=== PATIENT | female | born 1960 | race Caucasian/White ===

== ENCOUNTER 2020-07-05 13:55 | Emergency (ER) | payer OTHER, SELFPAY ==
--- NOTE | ~2020-07-05 | CT_ITS ---
EXAMINATION: CTA chest PE protocol DATE: 07/05/2020 15:20 INDICATION: Shortness of breath and hemoptysis TECHNIQUE: Computed tomography angiography (CTA) of the chest was performed with 100 mL Omnipaque-350 intravenous contrast timed to evaluate the pulmonary arteries. Coronal maximum intensity projection 3D-reconstructions were created by the technologist. The dose-length product (DLP) was 305.61 mGy-cm. Automated exposure control and iterative reconstruction technique were employed. COMPARISON: None. FINDINGS: The pulmonary arteries are well-opacified. No pulmonary embolism is identified. There is a 3 mm nodule of the right lower lobe on image 73. Mild dependent atelectasis is present. The lungs are free of focal airspace opacities. Calcified pulmonary nodules and calcified mediastinal lymph nodes are consistent with old granulomatous disease. No pathologically enlarged thoracic lymph nodes are id entified. The heart size is normal. There is an approximately 2.8 x 2.6 cm right paratracheal mass ne ar the thoracic inlet on image 7 contiguous with the thyroid. There is mass effect on and slight narr owing of the trachea at this level. IMPRESSION: 1. No pulmonary embolism or acute cardiopulmonary abnormality. 2. 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 Recommend follow-up with ultrasoun d and direct visualization. Reviewed, dictated and finalized at location A. [facility] IMPRESSION: 1. No pulmonary embolism or acute cardiopulmonary abnormality. 2. 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 Recommend fo llow-up with ultrasound and direct visualization.
--- NOTE | ~2020-07-05 | XR_ITS ---
EXAMINATION: XR chest 2V DATE: 07/05/2020 15:23 INDICATION: Hemoptysis, shortness of breath TECHNIQUE: PA and lateral views of the chest are obtained. COMPARISON: 05/10/2012 FINDINGS: The lungs are free of acute opacities. There is no pleural effusion or pneumothorax. The ca rdiomediastinal silhouette is normal. The visualized bones and soft tissues are unremarkable. There i s minimal mass effect on the upper trachea at the thoracic inlet corresponding to the mass seen on CT from today. IMPRESSION: 1. No acute cardiopulmonary abnormality. 2. Mass effect on the upper trachea corresponding to mass identified on CT from today. Reviewed, dictated and finalized at location A. 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
[2020-07-05 14:13] VITALS: BP 121/72; PULSE 69; RESP 18; TEMP 36.3; O2SAT 97
--- NOTE | 2020-07-05 14:19 | ECG_ITS ---
Measurements Intervals [place] Rate: 67 P: 56 [place]: 126 QRS: 55 QRSD: 82 T: 63 QT: 385 QTc: 407 Interpretive Statements SINUS RHYTHM POSSIBLE LEFT ATRIAL ENLARGEMENT BASELINE WANDER- I, II, III BORDERLINE ECG Electronically Signed On 07-05-2020 15:19:53 [employer] DIPPER by Lavon Amin D.O.
[2020-07-05 14:37] LABS: Basophils Absolute Auto 0.1 K/mm3 (0.0-0.1); Basophils Percent Auto 0.6 % (0.2-1.2); Eosinophils Absolute Auto 0.2 K/mm3 (0-0.3); Eosinophils Percent Auto 1.7 % (0-4.4); Hematocrit 42.1 % (37.0-47.0); Immature Granulocyte Absolute 0.03 K/mm3 (0.00-0.031); Immature Granulocyte Percent A 0.3 % (0-0.5); Lymphocytes Absolute Auto 2.82 K/mm3 (0.9-3.2); Lymphocytes Percent Auto 24.6 % (18.3-44.2); Mean Corpuscular HGB Conc 33.3 g/dl (32-36); Mean Corpuscular Hemoglobin 29.5 pg (26-34); Mean Corpuscular Volume 88.6 fl (80-100); Mean Platelet Volume 9.6 fl (7.4-10.4); Monocytes Absolute Auto 0.8 K/mm3 (0.1-0.6); Monocytes Percent Auto 7.1 % (2.6-8.5); Neutrophils Absolute Auto 7.6 K/mm3 (1.3-6.7); Neutrophils Percent Auto 65.7 % (45.5-73.1); Platelet Count Result 274 k/mm3 (150-375); Red Blood Count 4.75 M/mm3 (4.2-5.4); Red Cell Distribution Width 12.7 % (11.5-14.5); White Blood Count 11.5 K/mm3 (4.5-10.0)
[2020-07-05 14:48] LABS: Anion Gap 8 mmol/L (8-16); Blood Urea Nitrogen 20 mg/dL (7-17); Calcium 8.8 mg/dL (8.4-10.2); Carbon Dioxide 26 mmol/L (22-30); Chloride 102 mmol/L (98-107); Estimated CRCL calculation 53 ml/min; Estimated Glomerular Filt Rate > 60; Glucose 85 mg/dL (65-105); Potassium 4.9 mmol/L (3.4-5.0); Sodium 136 mmol/L (137-145)
[2020-07-05 14:49] VITALS: PULSE 64; RESP 16; O2SAT 95
--- NOTE | 2020-07-05 14:57 | ED.GENADULT ---
HPI - General Adult General Chief complaint: Shortness of Breath/Dyspnea Stated complaint: coughing up blood Time Seen by Provider: 07/05/20 14:49 History of Present Illness HPI narrative: Patient is a 59-year-old female who presents with hemoptysis noting that she has been having congestion rhinorrhea and upper respiratory symptoms for over a week had negative Covid test but continues to have productive cough does have history of tobacco abuse presents to emergency department in no distress Related Data Home Medications Medication Instructions Recorded Confirmed atorvastatin 07/05/20 cetirizine mg 07/05/20 cetirizine [Allergy Relief mg 07/05/20 (cetirizine)] clonazepam 07/05/20 famotidine 07/05/20 fluticasone propionate INTRANASAL 07/05/20 07/05/20 gabapentin 07/05/20 meloxicam 07/05/20 pantoprazole PO 07/05/20 paroxetine HCl mg PO 07/05/20 trazodone 07/05/20 venlafaxine mg PO 07/05/20 venlafaxine mg PO 07/05/20 Allergies Allergy/AdvReac Type Severity Reaction Status Date / Time No Known Allergies Allergy Mild Verified 07/05/20 15:18 Review of Systems Review of Systems: All systems reviewed & are unremarkable except as noted in HPI and below PMFSH Past Medical History Medical History (Updated 07/05/20 @ 16:21 by Hua Jaime PA-C) Anxiety Social History Social History (Updated 07/05/20 @ 15:04 by Hua Jaime PA-C) Smoking status: Current every day smoker Gender identity (if verbalized by the patient): Female Exam Narrative: Exam Narrative: GENERAL: Well-appearing, well-nourished, and in no acute distress. HEAD: Normocephalic, atraumatic. EYES: PERRLA and EOMI. ENT: Nares clear, no rhinorrhea or epistaxis. Mucous membranes moist. CHEST: Clear to auscultation. No respiratory distress. No wheezes rales or rhonchi HEART: Regular rate and rhythm. No murmur heard. EXTREMITIES: Normal range of motion. No edema. SKIN: Warm, dry, no rash. NEURO: No focal deficits. Alert and oriented x3. PSYCH: Normal mood and affect. Course Course Emergency Course: Patient was evaluated in the emergency department for hemoptysis was found to have a pair tracheal mass which she is aware of apparently and has had biopsy in the recent past notes she will continue to follow with primary care for the findings today will be treated for her symptoms ABCs intact hemodynamically stable felt appropriate for outpatient reevaluation Vital Signs Vital signs: Vital Signs Temperature 97.4 F L 07/05/20 14:13 Pulse Rate 69 07/05/20 14:13 Respiratory Rate 18 07/05/20 14:13 Blood Pressure 121/72 07/05/20 14:13 Pulse Oximetry 97 07/05/20 14:13 Temperature 97.4 F L 07/05/20 14:13 Pulse Rate 61 07/05/20 15:05 Respiratory Rate 15 07/05/20 15:05 Blood Pressure 121/72 07/05/20 14:13 Pulse Oximetry 94 07/05/20 15:05 Medical Decision Making MDM Narrative Medical decision making narrative: Patient in the room aware of case findings treatment plan diagnosis agreeing to follow with primary care for CT findings today and reevaluation of her bronchitis hemoptysis symptoms patient agreeing with this plan patient hemodynamically stable no pneumonia or other concerning findings. Vital Signs Vital Signs: Vital Signs Temperature 97.4 F L 07/05/20 14:13 Pulse Rate 69 07/05/20 14:13 Respiratory Rate 18 07/05/20 14:13 Blood Pressure 121/72 07/05/20 14:13 Pulse Oximetry 97 07/05/20 14:13 Temperature 97.4 F L 07/05/20 14:13 Pulse Rate 61 07/05/20 15:05 Respiratory Rate 15 07/05/20 15:05 Blood Pressure 121/72 07/05/20 14:13 Pulse Oximetry 94 07/05/20 15:05 Lab Data Result diagrams: 07/05/20 14:20 07/05/20 14:20 Labs: Lab Results 07/05/20 07/05/20 07/05/20 Range/Units 14:20 14:20 14:49 WBC 11.5 H (4.5-10.0) K/mm3 RBC 4.75 (4.2-5.4) M/mm3 Hgb 14.0 (12.0-15.0) g/dL Hct 42.1 (37.0-47.0
[2020-07-05 15:00] VITALS: PULSE 80
[2020-07-05 15:05] VITALS: PULSE 61; RESP 15; O2SAT 94
--- NOTE | 2020-07-05 15:20 | PC.NURSE ---
patient back from CT. resting on stretcher. on oil heaterman. waiting for all tests to be resulted. patient aware of current treatment plan and expected wait time. side rails up x2 and call light in reach.
[2020-07-05 15:22] LABS: Prothrombin Time 13.3 Seconds (11.1-14.7)
[2020-07-05 15:23] LABS: Partial Thromboplastin Time 26.9 SECONDS (22.3-36.8)
[2020-07-05 15:25] VITALS: PULSE 61; RESP 16; O2SAT 98
[2020-07-05 15:30] VITALS: PULSE 63; RESP 21; O2SAT 95
[2020-07-05] MEDS: methylPREDNISolone SOD SUCC 125 MG VIAL IV PUSH (16:38)
== END 2020-07-05 16:40 | disposition home or self-care (01) ==
PROVIDERS: Emergency Medicine Emergency Medical Services; Emergency Provider Emergency Medicine
DX: R04.2 Hemoptysis (principal); J39.8 Other specified diseases of upper respiratory tract; F41.9 Anxiety disorder, unspecified; R94.31 Abnormal electrocardiogram [ECG] [EKG]
CPT/HCPCS: 36415; 71046; 71275; 80048; 85025; 85610; 85730; 93005; 96374; 99284; J2930; Q9967

== ENCOUNTER 2020-12-11 00:17 | Inpatient (IN) | payer OTHER, SELFPAY ==
[2020-12-11] VITALS (14 sets, daily range): BP systolic 97–170; BP diastolic 63–99; PULSE 59–98; RESP 14–20; TEMP 36–37; O2SAT 95–98
--- NOTE | ~2020-12-11 | US_ITS ---
EXAMINATION: US renal BI DATE: 12/13/2020 08:30 INDICATION: Acute kidney injury. TECHNIQUE: Multiple ultrasound grayscale images of the kidneys were obtained. COMPARISON: None. FINDINGS: The right kidney measures 13.0 x 5.0 x 4.5 cm. The left kidney measures 9.6 x 4.8 x 5.1 cm. The kidne ys demonstrate normal parenchymal echogenicity. There is no hydronephrosis. The bladder is normal. IMPRESSION: 1. Normal kidney sizes. No hydronephrosis. Reviewed, dictated and finalized at location A.
--- NOTE | ~2020-12-11 | CT_ITS ---
EXAMINATION: CT pelvis wo con DATE: 12/11/2020 03:04 INDICATION: Left groin pain. Left hip pain. TECHNIQUE: Computed tomography (CT) of the pelvis was performed without intravenous contrast. Automat ed exposure control and iterative reconstruction technique were employed. The dose-length product was 443.66 mGy-cm. COMPARISON: Pelvis and left hip radiograph 12/11/2020 FINDINGS: There are no dilated loops of bowel. There are no pathologically enlarged lymph nodes. Ther e is no free intraperitoneal fluid. Bone alignment is normal. No fracture. There is advanced left hip osteoarthritis including bone volume loss of the superior acetabulum and superior aspect of the femo ral head. There is mild right hip osteoarthritis. IMPRESSION: 1. Advanced left hip osteoarthritis. Reviewed, dictated and finalized at location A.
--- NOTE | ~2020-12-11 | XR_ITS ---
EXAMINATION: XR chest 1V EXAM DATE: 12/11/2020 01:10 INDICATION: Weakness, syncope, no other hx. TECHNIQUE: Portable AP frontal chest x-ray was obtained. Comparison is made to prior examination from 07/05/2020. FINDINGS: Right upper lobe granuloma, right hilar calcified granulomas. Left basilar granuloma. The l ungs are otherwise clear. There are no pleural effusions. The cardiomediastinal silhouette is withi n normal limits. There is no pneumothorax suspected. The bones and soft tissues are unremarkable. IMPRESSION: No acute cardiopulmonary findings. Reviewed, dictated and finalized at location A.
--- NOTE | ~2020-12-11 | XR_ITS ---
EXAMINATION: XR hip LT 2V w AP pelvis EXAM DATE: 12/11/2020 01:11 INDICATION: Fall, left hip pain. TECHNIQUE: Left hip frontal, 'frog leg' projections for interpretation. Frontal projection pelvis. There is no prior study for comparison. FINDINGS: There is partially collapsed left humeral head with severe loss of the joint space and bony productive changes. Appearance is most consistent with left femoral head chronic avascular necrosis, and subsequent osteoarthritis secondary to this. The right hip and sacroiliac joints are unremarkabl e. There are no acute fractures identified. The soft tissue is unremarkable. IMPRESSION: 1. No acute pelvic, left hip fracture. 2. Severe left hip arthritis likely secondary to chronic advanced AVN. Reviewed, dictated and finalized at location A.
--- NOTE | ~2020-12-11 | NM_ITS ---
EXAMINATION: NM bone scan whole body DATE: 12/12/2020 14:34 INDICATION: Thyroid cancer. Bone pain. TECHNIQUE: 28 mCi Tc-99m HDP was administered intravenously. Delayed whole-body scintigrams were obt ained. COMPARISON: CT pelvis 12/11/2020, chest CT 07/05/20 FINDINGS: There is increased activity at left hip correlating with advanced osteoarthritis by CT. The re is increased activity at the first metatarsophalangeal joints and acromioclavicular joints, likely osteoarthritis. There is increased activity in left posterior cervical spine consistent with osteoar thritis. IMPRESSION: 1. No evidence of metastatic disease. Reviewed, dictated and finalized at location A.
--- NOTE | ~2020-12-11 | CT_ITS ---
EXAMINATION: CT brain wo con, CT cervical spine wo con EXAM DATE: 12/11/2020 00:59 (accession [id number]), 12/11/2020 01:00 (accession [id number]) INDICATION: Syncope, fall, weakness. TECHNIQUE: Spiral CT of the head was performed without contrast. Axial, coronal and sagittal images were reviewed. Spiral CT of the cervical spine was performed without contrast. Axial images were rev iewed. Coronal and sagittal reformatted images were also reviewed. The dose-length product (DLP) fo r this examination was 605.33 (accession [id number]), 358.61 (accession [id number]) mGy-cm. The exposure was tailored according to patient size, and iterative reconstruction (ASIR) was used as additional dose reduction technique. Comparison is made to prior examination from 05/10/2012. FINDINGS: HEAD CT: There is no acute intraparenchymal hemorrhage. No evidence of intraparenchymal brain mass l esion. No evidence of acute infarction. There is no mass effect or midline shift. There is no obstru ctive hydrocephalus suspected. There are no extra-axial collections. There are no acute calvarial f ractures. The orbits are unremarkable. Soft tissue is unremarkable. The visualized sinuses and mas toid air cells are well aerated. CERVICAL CT: There is no evidence of acute cervical fracture. The odontoid process is intact. Pre-d ens space is normal. Prevertebral soft tissue is normal. There are no soft tissue abnormalities alondra ntified. There is no disc space widening or traumatic vertebral body subluxation suspected. There i s moderate to severe disc disease at C4-5, moderate at the cervical levels below. Minimal degenerativ e subluxations. Some advanced lower cervical arthropathy, with the right C4-5 neural foramina most na rrowed on exam. Fused bilateral C5-6 facet joints. Surgical clips along the internal jugular chains b ilaterally and the thyroidectomy bed. A detailed level by level evaluation of spondylosis can be add ed as addendum if requested. IMPRESSION: 1. No acute intracranial findings or cervical fracture. 2. Cervical spondylosis. Reviewed, dictated and finalized at location A. IMPRESSION: 1. No acute intracranial findings or cervical fracture. 2. Cervical spondylosis.
--- NOTE | 2020-12-11 00:31 | ECG_ITS ---
Measurements Intervals [place] Rate: 62 P: 58 [place]: 137 QRS: 47 QRSD: 93 T: 50 QT: 365 QTc: 373 Interpretive Statements SINUS RHYTHM POSSIBLE LEFT ATRIAL ENLARGEMENT MINIMAL Q WAVES- INF/LAT LEADS BASELINE ARTIFACT- I, II, V4-V5 BORDERLINE ECG Electronically Signed On 12-11-2020 6:38:45 CDT by Lavon Amin D.O.
--- NOTE | 2020-12-11 01:03 | ED.FALL ---
HPI - Fall General Chief Complaint: Fall Stated Complaint: left leg pain s/p fall Time Seen by Provider: 12/11/20 00:22 Source: patient and RN notes reviewed Mode of arrival: EMS Limitations: no limitations History of Present Illness HPI Narrative: This is a 60 year old female with history of thyroid CA, chronic hip and back pain who presents via EMS for evaluation of left hip and leg pain. She states she has chronic low back pain that causes pain to her left hip. She reports last week she accidentally fell in between her couch, and this exacerbated his chronic pain. She states she has continued to have worsening pain. She reports the following day she slid off her couch. She also states she has gradually developed weakness and shakiness. Tonight her was cleaning her right ear in which she had a biopsy. She states during the clean she was moving her head uncontrollable. She states she was awake and aware of all her surrounding but she is stating she was passing out. She denies vomiting, fever, chest pain or chills. Related Data Home Medications Medication Instructions Recorded Confirmed atorvastatin 40 mg PO HS 07/05/20 12/11/20 cetirizine 10 mg PO DAILY 07/05/20 12/11/20 famotidine 20 mg PO BID PRN 07/05/20 12/11/20 fluticasone propionate 1 spray INTRANASAL DAILY 07/05/20 12/11/20 gabapentin 300 mg PO TID 07/05/20 12/11/20 pantoprazole 40 mg PO DAILY 07/05/20 12/11/20 paroxetine HCl 40 mg PO DAILY 07/05/20 12/11/20 trazodone 50 mg PO DAILY 07/05/20 12/11/20 acetaminophen 1,000 mg PO Q6H PRN 12/11/20 12/11/20 calcitriol 0.5 mcg PO BID 12/11/20 12/11/20 calcium carbonate-vitamin D3 2 tablet PO TID 12/11/20 12/11/20 [Os-Ciro 500 + D3] mnmqviy-pddfvsyit-tgms 3 tablet PO TID 12/11/20 12/11/20 celecoxib 200 mg PO DAILY 12/11/20 12/11/20 clobetasol 1 applic TOPICAL BID 12/11/20 12/11/20 clonazepam 0.5 mg PO BID PRN 12/11/20 12/11/20 diclofenac sodium [Voltaren] 4 g TOPICAL QID PRN 12/11/20 12/11/20 lgtdwqherar-kjnxm-zqc-vit C-Mn 3 tablet PO DAILY 12/11/20 12/11/20 levothyroxine 112 mcg PO DAILY 12/11/20 12/11/20 menthol [Biofreeze (menthol)] 1 ea TOPICAL QID PRN 12/11/20 12/11/20 methyl salicylate-menthol [BenGay] 1 applic TOPICAL QID PRN 12/11/20 12/11/20 ronbj-3m-jmq-epa-fish oil [[place]-3 3 cap PO DAILY 12/11/20 12/11/20 Fish Oil] vitamin B complex [B Complex] 1 cap PO DAILY 12/11/20 12/11/20 vitamin E 200 unit PO TID 12/11/20 12/11/20 Allergies Allergy/AdvReac Type Severity Reaction Status Date / Time No Known Allergies Allergy Mild Verified 07/05/20 15:18 Review of Systems Review of Systems: All systems reviewed & are unremarkable except as noted in HPI and below PMFSH Past Medical History Medical History Anxiety Thyroid cancer Surgical History Surgical History History of thyroidectomy Family History Family History Mother Diabetes mellitus Social History Social History Years smoked: 46 Smoking status: Current every day smoker Tobacco type: cigarettes Second hand tobacco smoke exposure: Yes Alcohol intake: never Substance use: never Gender identity (if verbalized by the patient): Female Spiritual care concerns: No Exam Const: General: no acute distress and alert Orientation/consciousness: patient oriented x3 HENMT: Head: normocephalic and atraumatic Face and sinus: face symmetric Mouth: Yes Normal oral and palatal mucosa present, Yes lip normal, Yes oropharynx normal and Yes moist mucous membranes Eyes: Pupils: Equal, round and reactive pupils present EOM: EOMs intact bilaterally Resp: Effort & Inspection: normal respiratory effort and no retractions Auscultation: clear to auscultation bilaterally Cardio: Rate: regular rate Rhyth
[2020-12-11] MEDS: ONDANSETRON INJ 4 MG/2 ML VIAL IV PUSH (01:19)
[2020-12-11 01:29] LABS: Basophils Absolute Auto 0.1 K/mm3 (0.0-0.1); Basophils Percent Auto 0.5 % (0.2-1.2); Eosinophils Absolute Auto 0.2 K/mm3 (0-0.3); Eosinophils Percent Auto 1.9 % (0-4.4); Hematocrit 41.2 % (37.0-47.0); Hemoglobin 13.4 g/dL (12.0-15.0); Immature Granulocyte Absolute 0.04 K/mm3 (0.00-0.031); Immature Granulocyte Percent A 0.3 % (0-0.5); Lymphocytes Absolute Auto 2.44 K/mm3 (0.9-3.2); Lymphocytes Percent Auto 19.5 % (18.3-44.2); Mean Corpuscular HGB Conc 32.5 g/dl (32-36); Mean Corpuscular Hemoglobin 29.1 pg (26-34); Mean Corpuscular Volume 89.6 fl (80-100); Mean Platelet Volume 10.5 fl (7.4-10.4); Monocytes Absolute Auto 1.4 K/mm3 (0.1-0.6); Monocytes Percent Auto 11.1 % (2.6-8.5); Neutrophils Absolute Auto 8.3 K/mm3 (1.3-6.7); Neutrophils Percent Auto 66.7 % (45.5-73.1); Platelet Count Result 349 k/mm3 (150-375); Red Cell Distribution Width 12.3 % (11.5-14.5); White Blood Count 12.5 K/mm3 (4.5-10.0)
[2020-12-11 01:46] LABS: INR 0.9; Prothrombin Time 12.9 Seconds (11.1-14.7)
[2020-12-11 01:47] LABS: Partial Thromboplastin Time 21.8 SECONDS (22.3-36.8)
[2020-12-11 01:56] LABS: Add Urine Microscopic? YES; Appearance Urine Cloudy (Clear); Bacteria Urine Trace /hpf; Bilirubin Urine Negative (Negative); Blood Urine Negative (Negative); Color Urine Straw (Yellow); Glucose Urine UA Negative (Negative); Ketones Urine Negative (Negative); Leukocyte Esterase Ur 1+ LEU/UL (Negative); Nitrate Urine Negative (Negative); Protein Urine 1+ mg/dL (Negative); RBC Urine 0-2 /hpf (0-2); Specific Grav Ur 1.009 (1.001-1.035); Squamous Epithelial Cell Urine Few /hpf (Few); Urobilinogen Urine Negative mg/dL (<2.0)
[2020-12-11 02:11] LABS: D Dimer < 0.22 ug/mL (<0.48)
[2020-12-11 02:28] LABS: Alanine Aminotransferase 17 U/L (4-35); Albumin Level 4.3 g/dL (3.5-5.1); Alkaline Phosphatase 74 U/L (38-126); Anion Gap 7 mmol/L (8-16); Aspartate Amino Transferase 35 U/L (14-36); Bilirubin,Total 0.3 mg/dL (0.2-1.3); Blood Urea Nitrogen 52 mg/dL (7-17); CRP 1.1 mg/dL (<1.0); Carbon Dioxide 34 mmol/L (22-30); Chloride 96 mmol/L (98-107); Estimated CRCL calculation 14 ml/min; Estimated Glomerular Filt Rate 13; Glucose 105 mg/dL (65-105); Potassium 4.1 mmol/L (3.4-5.0); Sodium 137 mmol/L (137-145); Troponin I 0.077 ng/mL (0.000-0.034)
[2020-12-11 02:29] LABS: Calcium 17.1 mg/dL (8.4-10.2)
[2020-12-11] MEDS: SODIUM CHLORIDE 0.9% IV 1,000 ML 999 ML IV CONT ×2 (02:53→04:30)
--- NOTE | 2020-12-11 05:22 | PC.NURSE ---
This patient, Brisa Hogan, was admitted to IMU Room 205-01. Patient/family oriented to hospital policies and general routines including ID bracelet, bed and alarms, visiting hours, pain management, procedures, bathroom and other care routines, personal items, smoking policy, room service/diet, and visiting hours. Information on how to activate the Rapid Response Team has been discussed. Patient/Family are encouraged to report perceived risks to care and to ask questions if they do not understand what they are told or what they should do.
[2020-12-11] MEDS: SODIUM CHLORIDE 0.9% IV 1,000 ML 200 ML IV CONT ×2 (10:16→16:07)
--- NOTE | 2020-12-11 12:47 | PDONCCN ---
[facility] - Date of Consult Date/Time: 12/11/20 12:47 Requesting Physician: Tank Gupta MD Primary Care Provider: UNKNOWN,DOCTOR - Consult Narrative Reason for consult: History of thyroid cancer and hypercalcemia Narrative: Brisa Hogan is a 60 year old female with recent diagnosis of thyroid cancer status post thyroidectomy done in August of 2020. According the patient she had thyroid biopsy done in April of 2028 came back negative. She had been seen by oncologist at [facility]. She was supposed to have radioactive iodine ablation done. She now came into the hospital with complain of chronic hip and back pain worsening left hip and leg pain. She was taking calcium 2500 mg 3 times a day with vitamin-D 500 mg daily. Her calcium level was found to be quite elevated at 17.1 with creatinine of 3.6. Pelvic CT was performed due to the hip pain that showed advanced left hip osteoarthritis. Cervical spine CT also showed cervical spondylosis without any fracture. Is still complaining of bilateral hip pain. Her mental status has been slowly improving. Denies any other complaints. Review of Systems - Review of Systems All systems reviewed & are unremarkable except as noted in [facility] and [facility] Medical History: Medical History (Last Updated 12/11/20 @ 07:12 by Daniela Kenyon MD) Anxiety Thyroid cancer Surgical History: Surgical History (Last Updated 12/11/20 @ 07:19 by Daniela Kenyon MD) History of thyroidectomy Family History: Family History (Last Reviewed 12/11/20 @ 05:37 by Jennifer Grider RN) Mother Diabetes mellitus - Social History Social History: Social History (Last Updated 07/05/20 @ 15:04 by Hua Jaime PA-C) Gender Identity: Gender identity (if verbalized by the patient): Female Alcohol Use: Alcohol intake: never Substance Use: Substance use: never Others: Spiritual care concerns: No Smoking Status: Smoking status: Current every day smoker Tobacco type: cigarettes Second hand tobacco smoke exposure: Yes Smoking Pack-years: Smoking cigarettes per day: 5 Years smoked: 46 Smoking pack-years: 11.50 Meds Home Medications Medication Instructions Recorded Confirmed Type atorvastatin 40 mg PO HS 07/05/20 12/11/20 History cetirizine 10 mg PO DAILY 07/05/20 12/11/20 History famotidine 20 mg PO BID PRN 07/05/20 12/11/20 History fluticasone propionate 1 spray INTRANASAL DAILY 07/05/20 12/11/20 History gabapentin 300 mg PO TID 07/05/20 12/11/20 History pantoprazole 40 mg PO DAILY 07/05/20 12/11/20 History paroxetine HCl 40 mg PO DAILY 07/05/20 12/11/20 History trazodone 50 mg PO DAILY 07/05/20 12/11/20 History acetaminophen 1,000 mg PO Q6H PRN 12/11/20 12/11/20 History calcitriol 0.5 mcg PO BID 12/11/20 12/11/20 History calcium carbonate-vitamin D3 2 tablet PO TID 12/11/20 12/11/20 History [Os-Ciro 500 + D3] gnrblbc-khsdteqeg-onzx 3 tablet PO TID 12/11/20 12/11/20 History celecoxib 200 mg PO DAILY 12/11/20 12/11/20 History clobetasol 1 applic TOPICAL BID 12/11/20 12/11/20 History clonazepam 0.5 mg PO BID PRN 12/11/20 12/11/20 History diclofenac sodium [Voltaren] 4 g TOPICAL QID PRN 12/11/20 12/11/20 History jhibpkebkav-dpwjg-nyz-vit C-Mn 3 tablet PO DAILY 12/11/20 12/11/20 History levothyroxine 112 mcg PO DAILY 12/11/20 12/11/20 History menthol [Biofreeze (menthol)] 1 ea TOPICAL QID PRN 12/11/20 12/11/20 History methyl salicylate-menthol [BenGay] 1 applic TOPICAL QID PRN 12/11/20 12/11/20 History ycqmy-9v-hws-epa-fish oil [[place]-3 3 cap PO DAILY 12/11/20 12/11/20 History Fish Oil] vitamin B complex [B Complex] 1 cap PO DAILY 12/11/20 12/11/20 History vitamin E 200 unit PO TID 12/11/20 12/11/20 History Allergies Allergy/AdvReac Type Severity Reaction Status Date / Time No Known Allergies Allergy Mild Verified 07/05/20 15:18 Results - Labs CBC & Chem 7: 12/11/20 01:23 06/
[2020-12-11] MEDS: ZOLEDRONIC ACID 4 MG/100 ML 100 ML 400 MG IVPB (13:32)
[2020-12-11] MEDS: GABAPENTIN 300 MG CAPSULE PO ×2 (13:32→18:44)
[2020-12-11] MEDS: CALCITONIN SALMON INJ 400 UNITS/2 ML VIAL 250 UNITS SUB-Q ×2 (13:32→20:33)
[2020-12-11 14:12] LABS: Thyroid Stimulating Hormone 0.628 uIU/mL (0.465-4.680)
--- NOTE | 2020-12-11 14:35 | ADMGEN ---
This patient, Brisa Hogan, was admitted to [facility] Surg Room 309-01. Patient/family oriented to hospital policies and general routines including ID bracelet, bed and alarms, visiting hours, pain management, procedures, bathroom and other care routines, personal items, smoking policy, room service/diet, and visiting hours. Information on how to activate the Rapid Response Team has been discussed. Patient/Family are encouraged to report perceived risks to care and to ask questions if they do not understand what they are told or what they should do.
--- NOTE | 2020-12-11 14:36 | PC.NURSE ---
This patient, Brisa Hogan, was transferred to [309 ] on 12/11/20 at 1430. Personal belongings sent with patient. Report given to [JOSY Julien @ 1768 ]. Appropriate documentation sent with patient.
[2020-12-11] MEDS: HYDROcodone/acetaminophen (*CRX) 5-325 MG TABLET 1 TAB PO (14:53)
[2020-12-11] MEDS: clonazePAM (*CRX) 0.5 MG TABLET PO (15:03)
--- NOTE | 2020-12-11 16:41 | PM.CNNEP ---
Assessment and Plan Assessment and plan (1) Acute kidney injury: Code(s): N17.9 - Acute kidney failure, unspecified Status: Acute Assessment and Plan: possibly due to hypercalcemia (and associated vasoconstriction) and NSAID use(?) continue aggressive IVF resuscitaton check urine electrolytes and urine eosinophils follow UOP and repeat labs (2) Hypercalcemia: Code(s): E83.52 - Hypercalcemia Status: Acute Assessment and Plan: presumably from excessive calcium supplementation (calcium carbonate, calcitriol...etc) continue aggressive IVF resuscitation start calcitonin x 4 doses given #1, I would have preferred to avoid use of zometa check SPEP, UPEP, PTH, PTHrp, and GUSTABO level follow repeat calcium levels Will continue to follow. History of Present Illness Reason for Consult Consult date: 12/11/20 Reason for consult: acute renal failure and Other (hypercalcemia) Chief Complaint Chief complaint: Acute Kidney Injury History of Present Illness Narrative: The patient is a 60-year-old female with a past medical history is out by feroz who presented to [facility] Emergency room due to chronic hip pain. The patient states that she has been having chronic hip and back pain for extensive period of time but appears to have acutely worsened on the day of admission. Due the severity of the pain, she is at apparently had issues with difficulty ambulating as well as reported falls. Eventually, the pain became so intolerable that she presented to the emergency room for further evaluation and therapy. Workup and evaluation emergency room demonstrated patient be hemodynamically stable but routine blood tests were significant for severe hypercalcemia with a value of 17.1 in associated with an elevated BUN and creatinine consistent with acute kidney injury/acute renal failure. Imaging studies demonstrated advanced degenerative joint disease/ Izaiah osteoarthritis particularly in the left hip as in well as in her cervical spine. Upon further questioning, the patient reports significant calcium supplementation in the hopes that this would improve her degenerative joint disease as well as several nonsteroidal anti-inflammatory medications to help with the pain as well. Upon discovery of the CARYL as well as her hypercalcemia, she was aggressively hydrated with IV fluids and subsequent admitted the hospital for further evaluation and therapy. Renal consultation was requested due to her acute kidney injury as well as her hypercalcemia. Since her admission, she has been receiving aggressive IV fluid resuscitation and she reports increased urine output with this intervention. She is in seen in consultation by Oncology as well and has received a dose of IV Zometa in attempt to help correct her hypercalcemia. Aside from the a for mentioned hip pain, she otherwise does not appear to be in any acute distress. As far she is aware, she has never been told that she had any issues or problems with renal dysfunction or kidney disease prior to this hospitalization. Aside from the increased urination from the IV fluids, she has no other acute issues or complaints voiced. [facility] Past Medical History Medical History Anxiety Thyroid cancer Surgical History Surgical History History of thyroidectomy Family History Family History Mother Diabetes mellitus Social History Social History Years smoked: 46 Smoking status: Current every day smoker Tobacco type: cigarettes Second hand tobacco smoke exposure: Yes Alcohol intake: never Substance use: never Gender identity (if verbalized by the patient): Female Spiritual care concerns: No Meds Home Medications and Allergies
--- NOTE | 2020-12-11 18:18 | PM.IMHP ---
H&P: HPI History of Present Illness Date/Time: 12/11/20 18:18 Chief Complaint: Fall Narrative: Pt admitted with a fall. Pt has had thyroidectomy in august and has been on levothyroxine since. Pt has bone on bone OA in her hip and is awaiting replacement. PT has been taking calcium supplements and pain medications for OA of her hip and ? osteoporosis. Unfortunately her calcium went high and pt feel weak and passed out and was brought to ED for evaluation. Pt calcium was found to be 17 and creatine was 3.6. Pt complains of pain in her hip but is otherwise awake and alert. Pt started on iv fluids calcitonin and will get zometa. Nephrology and oncology consulted. Review of Systems Review of Systems: All systems reviewed & are unremarkable except as noted in HPI and below PMFSH Past Medical History Medical History Anxiety Thyroid cancer Surgical History Surgical History History of thyroidectomy Family History Family History Mother Diabetes mellitus Social History Social History Years smoked: 46 Smoking status: Current every day smoker Tobacco type: cigarettes Second hand tobacco smoke exposure: Yes Alcohol intake: never Substance use: never Gender identity (if verbalized by the patient): Female Spiritual care concerns: No Meds Home Medications and Allergies Home Medications Medication Instructions Recorded Confirmed Type atorvastatin 40 mg PO HS 07/05/20 12/11/20 History cetirizine 10 mg PO DAILY 07/05/20 12/11/20 History famotidine 20 mg PO BID PRN 07/05/20 12/11/20 History fluticasone propionate 1 spray INTRANASAL DAILY 07/05/20 12/11/20 History gabapentin 300 mg PO TID 07/05/20 12/11/20 History pantoprazole 40 mg PO DAILY 07/05/20 12/11/20 History paroxetine HCl 40 mg PO DAILY 07/05/20 12/11/20 History trazodone 50 mg PO DAILY 07/05/20 12/11/20 History acetaminophen 1,000 mg PO Q6H PRN 12/11/20 12/11/20 History calcitriol 0.5 mcg PO BID 12/11/20 12/11/20 History calcium carbonate-vitamin D3 2 tablet PO TID 12/11/20 12/11/20 History [Os-Ciro 500 + D3] tbfxlai-kgwsnfjct-prfe 3 tablet PO TID 12/11/20 12/11/20 History celecoxib 200 mg PO DAILY 12/11/20 12/11/20 History clobetasol 1 applic TOPICAL BID 12/11/20 12/11/20 History clonazepam 0.5 mg PO BID PRN 12/11/20 12/11/20 History diclofenac sodium [Voltaren] 4 g TOPICAL QID PRN 12/11/20 12/11/20 History vfwsnvmjouw-jfqis-bsg-vit C-Mn 3 tablet PO DAILY 12/11/20 12/11/20 History levothyroxine 112 mcg PO DAILY 12/11/20 12/11/20 History menthol [Biofreeze (menthol)] 1 ea TOPICAL QID PRN 12/11/20 12/11/20 History methyl salicylate-menthol [BenGay] 1 applic TOPICAL QID PRN 12/11/20 12/11/20 History twrsc-4l-syl-epa-fish oil [[place]-3 3 cap PO DAILY 12/11/20 12/11/20 History Fish Oil] vitamin B complex [B Complex] 1 cap PO DAILY 12/11/20 12/11/20 History vitamin E 200 unit PO TID 12/11/20 12/11/20 History Allergies Allergy/AdvReac Type Severity Reaction Status Date / Time No Known Allergies Allergy Mild Verified 07/05/20 15:18 Vital Signs Vital Signs - 24 hr 12/11/20 00:20 12/11/20 02:02 12/11/20 03:08 Temperature 36.9 C Pulse Rate 69 59 L 70 Respiratory Rate 18 18 14 Blood Pressure 153/84 H 148/73 H 170/84 H Pulse Oximetry 98 95 97 12/11/20 03:44 12/11/20 04:30 12/11/20 05:00 Temperature 36.6 C Pulse Rate 72 66 98 Respiratory Rate 18 18 20 Blood Pressure 152/79 H 137/75 149/88 H Pulse Oximetry 95 96 97 12/11/20 06:00 12/11/20 08:00 12/11/20 10:00 Temperature 36.7 C Pulse Rate 70 67 76 Respiratory Rate 16 Blood Pressure 122/98 H Pulse Oximetry 96 12/11/20 12:00 12/11/20 15:00 Temperature 36.8 C 36.6 C Pulse Rate 74 77 Respiratory Rate 18 20 Blood Pressure 158/99 H Pulse Oxime
[2020-12-11] MEDS: FAMOTIDINE 20 MG TABLET PO (20:31)
[2020-12-11] MEDS: ENOXAPARIN 30 MG/0.3 ML SYRINGE SUB-Q (20:32)
[2020-12-12] VITALS (7 sets, daily range): BP systolic 130–146; BP diastolic 61–82; PULSE 61–79; RESP 16–20; TEMP 36.1–36.9; O2SAT 96–97
[2020-12-12] MEDS: SODIUM CHLORIDE 0.9% IV 1,000 ML 200 ML IV CONT ×4 (02:06→19:03)
[2020-12-12] MEDS: HYDROcodone/acetaminophen (*CRX) 5-325 MG TABLET 1 TAB PO ×3 (02:19→16:30)
[2020-12-12] MEDS: clonazePAM (*CRX) 0.5 MG TABLET PO (02:20)
[2020-12-12] MEDS: LEVOTHYROXINE SODIUM 112 MCG TABLET PO (05:13)
[2020-12-12 06:17] LABS: Alanine Aminotransferase 12 U/L (4-35); Albumin Level 3.5 g/dL (3.5-5.1); Alkaline Phosphatase 53 U/L (38-126); Anion Gap 7 mmol/L (8-16); Aspartate Amino Transferase 23 U/L (14-36); Bilirubin,Total 0.2 mg/dL (0.2-1.3); Blood Urea Nitrogen 40 mg/dL (7-17); Calcium 11.3 mg/dL (8.4-10.2); Carbon Dioxide 24 mmol/L (22-30); Chloride 111 mmol/L (98-107); Estimated CRCL calculation 16 ml/min; Estimated Glomerular Filt Rate 16; Glucose 88 mg/dL (65-105); Potassium 3.5 mmol/L (3.4-5.0); Sodium 142 mmol/L (137-145)
[2020-12-12 08:12] LABS: Basophils Absolute Auto 0.1 K/mm3 (0.0-0.1); Basophils Percent Auto 0.6 % (0.2-1.2); Eosinophils Absolute Auto 0.2 K/mm3 (0-0.3); Eosinophils Percent Auto 2.2 % (0-4.4); Hematocrit 32.9 % (37.0-47.0); Hemoglobin 10.5 g/dL (12.0-15.0); Immature Granulocyte Absolute 0.03 K/mm3 (0.00-0.031); Immature Granulocyte Percent A 0.3 % (0-0.5); Lymphocytes Absolute Auto 2.13 K/mm3 (0.9-3.2); Lymphocytes Percent Auto 22.1 % (18.3-44.2); Mean Corpuscular HGB Conc 31.9 g/dl (32-36); Mean Corpuscular Hemoglobin 28.6 pg (26-34); Mean Corpuscular Volume 89.6 fl (80-100); Mean Platelet Volume 10.1 fl (7.4-10.4); Monocytes Absolute Auto 0.9 K/mm3 (0.1-0.6); Monocytes Percent Auto 9.4 % (2.6-8.5); Neutrophils Absolute Auto 6.3 K/mm3 (1.3-6.7); Neutrophils Percent Auto 65.4 % (45.5-73.1); Platelet Count Result 265 k/mm3 (150-375); Red Blood Count 3.67 M/mm3 (4.2-5.4); Red Cell Distribution Width 12.3 % (11.5-14.5); White Blood Count 9.6 K/mm3 (4.5-10.0)
[2020-12-12] MEDS: GABAPENTIN 300 MG CAPSULE PO ×3 (08:26→16:31)
[2020-12-12] MEDS: PARoxetine 20 MG TABLET 40 MG PO (08:27)
[2020-12-12] MEDS: CALCITONIN SALMON INJ 400 UNITS/2 ML VIAL 250 UNITS SUB-Q (08:27)
[2020-12-12] MEDS: PANTOPRAZOLE 40 MG TABLET PO (08:27)
--- NOTE | 2020-12-12 14:46 | PM.PNNEP ---
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 Subjective Date/time seen: 12/12/20 14:46 Still with a significant amount of pain related to her extensive degenerative joint disease/osteoarthritis; making good urine output and calcium level has improved with current interventions; no events overnight or earlier this AM. Objective Data Vital Signs Vital Signs: Vital Signs Temp Pulse Resp BP Pulse Ox 12/12/20 16:00 36.9 C 71 20 140/65 96 12/12/20 12:00 68 12/12/20 08:00 36.6 C 61 20 146/61 H 97 12/12/20 04:00 69 12/12/20 00:00 67 12/11/20 23:59 37.0 C 74 18 97/63 L 98 12/11/20 20:00 71 Intake/Output Intake/Output: Intake & Output 12/09/20 12/10/20 12/11/20 12/12/20 23:59 23:59 23:59 23:59 Intake Total 5840 4320 Output Total 2550 1350 Balance 3290 2970 Meds/Results Medications: Active Medications Generic Name Dose Route Start Last Admin Trade Name Freq PRN Reason Stop Dose Admin Acetaminophen 1,000 mg 12/11/20 14:39 Acetaminophen 500 Mg Tablet PO Q6H PRN Pain Rated 5 or Less Hydrocodone Bitart/Acetaminophen 1 tab 12/11/20 14:39 12/12/20 16:30 Hydrocodone/Acetaminophen (*Crx) 5-325 Mg Tablet PO 1 tab Q6H PRN Administration Pain Rated 6 or Greater Clonazepam 0.5 mg 12/11/20 12:27 12/12/20 02:20 Clonazepam (*Crx) 0.5 Mg Tablet PO 0.5 mg BID PRN Administration Anxiety Enoxaparin Sodium 30 mg 12/11/20 21:00 12/11/20 20:32 Enoxaparin 30 Mg/0.3 Ml Syringe SUB-Q 30 mg Q24H RACQUEL Administration Famotidine 20 mg 12/11/20 12:27 12/11/20 20:31 Famotidine 20 Mg Tablet PO 20 mg BID PRN Administration Acid Reflux Gabapentin 300 mg 12/11/20 13:00 12/12/20 16:31 Gabapentin 300 Mg Capsule PO 300 mg TID RACQUEL Administration Sodium Chloride 1,000 mls @ 200 mls/hr 12/11/20 04:15 12/12/20 19:03 Normal Saline Iv IV CONT 200 mls/hr .Q5H RACQUEL Administration Levothyroxine Sodium 112 mcg 12/12/20 06:30 12/12/20 05:13 Levothyroxine Sodium 112 Mcg Tablet PO 112 mcg DAILY@0630 RACQUEL Administration Ondansetron HCl 4 mg 12/11/20 04:12 Ondansetron Inj 4 Mg/2 Ml Vial IV PUSH Q4H PRN Nausea Pantoprazole Sodium 40 mg 12/12/20 09:00 12/12/20 08:27 Pantoprazole 40 Mg Tablet PO 40 mg DAILY RACQUEL Administration Paroxetine HCl 40 mg 12/12/20 09:00 12/12/20 08:27 Paroxetine 20 Mg Tablet PO 40 mg DAILY RACQUEL Administration Trazodone HCl 50 mg 12/12/20 21:00 Trazodone Hcl 50 Mg Tablet PO HS [facility] Radiology Results: ITS Impressions Chest X-Ray 12/11/20 06:46 IMPRESSION: No acute cardiopulmonary findings. Hip/Pelvis X-Ray 12/11/20 06:46 IMPRESSION: 1. No acute pelvic, left hip fracture. 2. Severe left hip arthritis likely secondary to chronic advanced AVN. Cervical Spine CT 12/11/20 07:28 IMPRESSION: 1. No acute intracranial findings or cervical fracture. 2. Cervical spondylosis. Head CT 12/11/20 07:28
--- NOTE | 2020-12-12 15:31 | PM.IMPN ---
Progress Note: A&P Assessment and Plan (1) Acute kidney injury: Code(s): N17.9 - Acute kidney failure, unspecified Status: Acute Assessment and Plan: Pt seen by nephrology, continue to monitor BMP. Continue to hydrate (2) Hypercalcemia: Code(s): E83.52 - Hypercalcemia Status: Acute Assessment and Plan: Continue with calcitonin and continue to monitor calcium levels Stop calcium supplements continue to hydrate seen by oncology (3) Cancer of thyroid: Code(s): C73 - Malignant neoplasm of thyroid gland Status: Acute Assessment and Plan: thyroid cancer status post thyroidectomy done in August of 2020. According the patient she had thyroid biopsy done in April of 2028 came back negative, Pt taking levothyroixine. pt to have nm scan (4) Left hip pain: Code(s): M25.552 - Pain in left hip Status: Acute Assessment and Plan: PT had xray of hips and pelvic looks like advanced OA of left hip continue pain medications in hospital (5) Chronic pain: Code(s): G89.29 - Other chronic pain Status: Acute Assessment and Plan: PT had CT chest, CT head and CT c spine as she pased out on admission. Subjective Date/time seen: 12/12/20 15:31 Interval history: Unfortunately her calcium went high and pt feel weak and passed out and was brought to ED for evaluation calcium is 11 today much improved Review of Systems Review of Systems: All systems reviewed & are unremarkable except as noted in HPI and below Exam Const: General: tired appearing Other: lying on her right side HENMT: Head: normocephalic Eyes: General: appearance normal, both eyes and all related structures Pupils: Equal, round and reactive pupils present Neck: Neck: supple Chest: Chest palpation & inspection: normal inspection of the chest Resp: Effort & Inspection: normal respiratory effort Auscultation: clear to auscultation bilaterally Cardio: Jugular venous distension: no JVD Rhythm: regular rhythm Heart sounds: S1 normal heart sound present and S2 normal heart sound present GI: Inspection: normal to inspection Auscultation: normal bowel sounds Back/Spine/Pelvis: Back: other (TTP over hips ) Skin: General skin exam: normal color and dry skin Neuro: Cranial nerves: Yes CN's II-XII intact bilaterally and Yes Equal, round and reactive pupils present Cognition (Neuro): normal cognition Speech: normal speech Motor exam (neuro): 5/5 motor strength present throughout Extrem: General: normal to inspection Psych: Appearance: grossly normal Mental Status: mental status grossly normal Objective Data Vital Signs Vital Signs: Vital Signs - 24 hr 12/11/20 16:00 12/11/20 20:00 12/11/20 23:59 Temperature 36.0 C L 37.0 C Pulse Rate 77 71 74 Respiratory Rate 18 18 Blood Pressure 115/75 97/63 L Pulse Oximetry 97 98 12/12/20 00:00 12/12/20 04:00 12/12/20 08:00 Temperature 36.6 C Pulse Rate 67 69 61 Respiratory Rate 20 Blood Pressure 146/61 H Pulse Oximetry 97 12/12/20 12:00 Temperature Pulse Rate 68 Respiratory Rate Blood Pressure Pulse Oximetry Intake/Output Intake/Output: Intake & Output 12/09/20 12/10/20 12/11/20 12/12/20 23:59 23:59 23:59 23:59 Intake Total 5840 3000 Output Total 2550 1350 Balance 3290 1650 Meds/Results Medications: Active Medications Generic Name Dose Route Start Last Admin Trade Name Freq PRN Reason Stop Dose Admin Acetaminophen 1,000 mg 12/11/20 14:39 Acetaminophen 500 Mg Tablet PO Q6H PRN Pain Rated 5 or Less Hydrocodone Bitart/Acetaminophen 1 tab 12/11/20 14:39 12/12/20 08:26 Hydrocodone/Acetaminophen (*Crx) 5-325 Mg Tablet PO 1 tab Q6H PRN Administration Pain Rated 6 or Greater Calcitonin [place] 250 units 12/11/20 11:50 12/12/20 08:27 Calcitonin [place] Inj 400 Units/2 Ml Vial SUB-Q 12/12/20 21:01 250 units Q12HR ON LICENSE OF [facility] Administra
[2020-12-12] MEDS: traZODone HCL 50 MG TABLET PO (21:44)
[2020-12-12] MEDS: ENOXAPARIN 30 MG/0.3 ML SYRINGE SUB-Q (21:44)
[2020-12-12 22:20] LABS: Creatinine Urine 38.5 mg/dL; Total Protein Urine Random 36 mg/dL; Ur Ttl Prot Creatinine Ratio 0.94 mg/mg (0-0.20)
[2020-12-12 22:45] LABS: Sodium Urine Random 77 meq/L
[2020-12-13] VITALS (10 sets, daily range): BP systolic 120–165; BP diastolic 54–68; PULSE 60–90; RESP 16–18; TEMP 36.2–37.3; O2SAT 94–96
[2020-12-13] MEDS: SODIUM CHLORIDE 0.9% IV 1,000 ML 200 ML IV CONT ×2 (00:27→05:00)
[2020-12-13] MEDS: ONDANSETRON INJ 4 MG/2 ML VIAL IV PUSH ×3 (01:17→18:27)
[2020-12-13] MEDS: LEVOTHYROXINE SODIUM 112 MCG TABLET PO (04:57)
[2020-12-13] MEDS: HYDROcodone/acetaminophen (*CRX) 5-325 MG TABLET 1 TAB PO (05:00)
[2020-12-13 07:12] LABS: Albumin Level 3.4 g/dL (3.5-5.1); Anion Gap 10 mmol/L (8-16); Blood Urea Nitrogen 28 mg/dL (7-17); Carbon Dioxide 19 mmol/L (22-30); Chloride 113 mmol/L (98-107); Estimated CRCL calculation 21 ml/min; Estimated Glomerular Filt Rate 20; Glucose 84 mg/dL (65-105); Phosphorus 2.7 mg/dL (2.5-4.5); Potassium 2.9 mmol/L (3.4-5.0); Sodium 142 mmol/L (137-145)
[2020-12-13 07:14] LABS: Parathyroid Intact < 3.4 pg/mL (7.5-53.5)
[2020-12-13 08:23] LABS: Vitamin D 25 Hydroxy 29.6 ng/mL
[2020-12-13] MEDS: GABAPENTIN 300 MG CAPSULE PO ×3 (08:52→17:56)
[2020-12-13] MEDS: PANTOPRAZOLE 40 MG TABLET PO (08:52)
[2020-12-13] MEDS: PARoxetine 20 MG TABLET 40 MG PO (08:52)
--- NOTE | 2020-12-13 09:31 | P.PNNP_ITS ---
Progress Note: A&P Assessment and Plan (1) Acute kidney injury: Code(s): N17.9 - Acute kidney failure, unspecified Status: Acute Assessment and Plan: * Acute kidney injury * Urine electrolytes are non pre renal. * Urine eosinophils are pending * renal ultrasound is normal * Most likely this is related to NSAID use and hypercalcemia. * Calcium is better. * She is off the NSAIDs. * She was getting IV fluids but now looks like she is a little volume overloaded. Will stop IV fluids and give her some diuretics. * Creatinine is better (2) Hypercalcemia: Code(s): E83.52 - Hypercalcemia Status: Acute Assessment and Plan: * presumably from excessive calcium supplementation (calcium carbonate, calcitriol...etc) - milk alkali syndrome * calcitonin x 4 doses * given #1, I would have preferred to avoid use of zometa * follow-up on SPEP, UPEP, PTH, PTHrp, and GUSTABO level * Bone scan shows no evidence of metastatic disease. * Calcium Level is okay today. Stop IV fluids. Give Lasix. Subjective Date/time seen: 12/13/20 09:31 Interval history: Patient feels okay today. She was a little short of breath this morning. She made a little urine yesterday. Exam Narrative: Exam Narrative: GENERAL APPEARANCE: well developed well nourished female in no acute distress CARDIOVASCULAR: RRR, normal S1 and S2, no rub RESPIRATORY: Bibasilar crackles ABDOMEN: soft, nontender, nondistended, positive bowel sounds present EXTREMITIES: Trace edema edema NEUROLOGICAL: alert and oriented x 3; CN II - XII intact bilaterally; no focal deficits noted Objective Data Vital Signs Vital Signs: Vital Signs - 24 hr 12/12/20 12:00 12/12/20 16:00 12/12/20 16:29 Temperature 36.9 C Pulse Rate 68 71 73 Respiratory Rate 20 Blood Pressure 140/65 Pulse Oximetry 96 12/12/20 22:00 12/13/20 00:00 12/13/20 04:00 Temperature 36.1 C L Pulse Rate 79 75 90 Respiratory Rate 16 Blood Pressure 130/82 Pulse Oximetry 97 12/13/20 06:00 Temperature 36.2 C L Pulse Rate 80 Respiratory Rate 18 Blood Pressure 165/68 H Pulse Oximetry 94 Intake/Output Intake/Output: Intake & Output 0612/11/20 12/12/20 12/13/20 23:59 23:59 23:59 23:59 Intake Total 6363 6342 8750 Output Total 1306 1350 550 Balance 3290 7026 1900 Meds/Results Medications: Active Medications Generic Name Dose Route Start Last Admin Trade Name Freq PRN Reason Stop Dose Admin Acetaminophen 1,000 mg 12/11/20 14:39 Acetaminophen 500 Mg Tablet PO Q6H PRN Pain Rated 5 or Less Hydrocodone Bitart/Acetaminophen 1 tab 12/11/20 14:39 12/13/20 05:00 Hydrocodone/Acetaminophen (*Crx) 5-325 Mg Tablet PO 1 tab Q6H PRN Administration Pain Rated 6 or Greater Clonazepam 0.5 mg 12/11/20 12:27 12/12/20 02:20 Clonazepam (*Crx) 0.5 Mg Tablet PO 0.5 mg BID PRN Administration Anxiety Enoxaparin Sodium 30 mg 12/11/20 21:00 12/12/20 21:44 Enoxaparin 30 Mg/0.3 Ml Syringe SUB-Q 30 mg Q24H RACQUEL Administration Famotidine 20 mg 12/11/20 12:27 12/11/20 20:3
--- NOTE | 2020-12-13 09:31 | PM.PNNEP ---
Progress Note: A&P Assessment and Plan (1) Acute kidney injury: Code(s): N17.9 - Acute kidney failure, unspecified Status: Acute Assessment and Plan: Acute kidney injury Urine electrolytes are non pre renal. Urine eosinophils are pending renal ultrasound is normal Most likely this is related to NSAID use and hypercalcemia. Calcium is better. She is off the NSAIDs. She was getting IV fluids but now looks like she is a little volume overloaded. Will stop IV fluids and give her some diuretics. Creatinine is better (2) Hypercalcemia: Code(s): E83.52 - Hypercalcemia Status: Acute Assessment and Plan: presumably from excessive calcium supplementation (calcium carbonate, calcitriol...etc) - milk alkali syndrome calcitonin x 4 doses given #1, I would have preferred to avoid use of zometa follow-up on SPEP, UPEP, PTH, PTHrp, and GUSTABO level Bone scan shows no evidence of metastatic disease. Calcium Level is okay today. Stop IV fluids. Give Lasix. Subjective Date/time seen: 12/13/20 09:31 Interval history: Patient feels okay today. She was a little short of breath this morning. She made a little urine yesterday. Exam Narrative: Exam Narrative: GENERAL APPEARANCE: well developed well nourished female in no acute distress CARDIOVASCULAR: RRR, normal S1 and S2, no rub RESPIRATORY: Bibasilar crackles ABDOMEN: soft, nontender, nondistended, positive bowel sounds present EXTREMITIES: Trace edema edema NEUROLOGICAL: alert and oriented x 3; CN II - XII intact bilaterally; no focal deficits noted Objective Data Vital Signs Vital Signs: Vital Signs - 24 hr 12/12/20 12:00 12/12/20 16:00 12/12/20 16:29 Temperature 36.9 C Pulse Rate 68 71 73 Respiratory Rate 20 Blood Pressure 140/65 Pulse Oximetry 96 12/12/20 22:00 12/13/20 00:00 12/13/20 04:00 Temperature 36.1 C L Pulse Rate 79 75 90 Respiratory Rate 16 Blood Pressure 130/82 Pulse Oximetry 97 12/13/20 06:00 Temperature 36.2 C L Pulse Rate 80 Respiratory Rate 18 Blood Pressure 165/68 H Pulse Oximetry 94 Intake/Output Intake/Output: Intake & Output 12/10/20 12/11/20 12/12/20 12/13/20 23:59 23:59 23:59 23:59 Intake Total 5840 4685 7600 Output Total 2700 1350 550 Balance 3290 0640 1900 Meds/Results Medications: Active Medications Generic Name Dose Route Start Last Admin Trade Name Freq PRN Reason Stop Dose Admin Acetaminophen 1,000 mg 12/11/20 14:39 Acetaminophen 500 Mg Tablet PO Q6H PRN Pain Rated 5 or Less Hydrocodone Bitart/Acetaminophen 1 tab 12/11/20 14:39 12/13/20 05:00 Hydrocodone/Acetaminophen (*Crx) 5-325 Mg Tablet PO 1 tab Q6H PRN Administration Pain Rated 6 or Greater Clonazepam 0.5 mg 12/11/20 12:27 12/12/20 02:20 Clonazepam (*Crx) 0.5 Mg Tablet PO 0.5 mg BID PRN Administration Anxiety Enoxaparin Sodium 30 mg 12/11/20 21:00 12/12/20 21:44 Enoxaparin 30 Mg/0.3 Ml Syringe SUB-Q 30 mg Q24H RACQUEL Administration Famotidine 20 mg 12/11/20 12:27 12/11/20 20:31 Famotidine 20 Mg Tablet PO 20 mg BID PRN Administration Acid Reflux Gabapentin 300 mg 12/11/20 13:00 12/13/20 08:52 Gabapentin 300 Mg Capsule PO 300 mg TID RACQUEL Administration Sodium Chloride 1,000 mls @ 200 mls/hr 12/11/20 04:15 12/13/20 05:00 Normal Saline Iv IV CONT 200 mls/hr .Q5H RACQUEL Administration Levothyroxine Sodium 112 mcg 12/12/20 06:30 12/13/20 04:57 Levothyroxine Sodium 112 Mcg Tablet PO 112 mcg DAILY@0630 RACQUEL Administration Ondansetron HCl 4 mg 12/11/20 04:12 12/13/20 01:17 Ondansetron Inj 4 Mg/2 Ml Vial IV PUSH 4 mg Q4H PRN Administration Nausea Pantoprazole Sodium 40 mg 12/12/20 09:00 12/13/20 08:52 Pantoprazole 40 Mg Tablet PO 40 mg DAILY RACQUEL Administration Paroxetine HCl 40 mg 12/12/20 09:00 12/13/20 08:52 Paroxetine 20 Mg Tablet PO 40 mg
[2020-12-13] MEDS: FUROSEMIDE INJ 40 MG/4 ML VIAL IV PUSH (10:05)
[2020-12-13] MEDS: POTASSIUM CHLORIDE 20 MEQ TABLET.ER 40 MEQ PO ×2 (11:23→17:56)
--- NOTE | 2020-12-13 14:34 | PM.IMPN ---
Progress Note: A&P Assessment and Plan (1) Acute kidney injury: Code(s): N17.9 - Acute kidney failure, unspecified Status: Resolved Assessment and Plan: Pt seen by nephrology, continue to monitor BMP. (2) Hypercalcemia: Code(s): E83.52 - Hypercalcemia Status: Acute Assessment and Plan: SP calcitonin and continue to monitor calcium levels Stop calcium supplements seen by oncology (3) Cancer of thyroid: Code(s): C73 - Malignant neoplasm of thyroid gland Status: Acute Assessment and Plan: thyroid cancer status post thyroidectomy done in August of 2020. According the patient she had thyroid biopsy done in April of 2028 came back negative, Pt taking levothyroixine. Bone scan is negative (4) Left hip pain: Code(s): M25.552 - Pain in left hip Status: Acute Assessment and Plan: PT had xray of hips and pelvic looks like advanced OA of left hip continue pain medications in hospital (5) Chronic pain: Code(s): G89.29 - Other chronic pain Status: Acute Assessment and Plan: PT had CT chest, CT head and CT c spine as she pased out on admission. Subjective Date/time seen: 12/13/20 14:34 Interval history: Unfortunately her calcium went high and pt feel weak and passed out and was brought to ED for evaluation calcium is 9 today much improved. Pt looks fluid overloaded due to iv hydration. Pt to have lasix. Pt to start PT, hopeful dc in 1-2 days time. Review of Systems Review of Systems: All systems reviewed & are unremarkable except as noted in HPI and below Exam Const: General: tired appearing Other: lying on her right side HENMT: Head: normocephalic Eyes: General: appearance normal, both eyes and all related structures Pupils: Equal, round and reactive pupils present Neck: Neck: supple Chest: Chest palpation & inspection: normal inspection of the chest Resp: Effort & Inspection: normal respiratory effort Auscultation: clear to auscultation bilaterally Cardio: Jugular venous distension: no JVD Rhythm: regular rhythm Heart sounds: S1 normal heart sound present and S2 normal heart sound present GI: Inspection: normal to inspection Auscultation: normal bowel sounds Back/Spine/Pelvis: Back: other (TTP over hips ) Skin: General skin exam: normal color and dry skin Neuro: Cranial nerves: Yes CN's II-XII intact bilaterally and Yes Equal, round and reactive pupils present Cognition (Neuro): normal cognition Speech: normal speech Motor exam (neuro): 5/5 motor strength present throughout Extrem: General: normal to inspection Psych: Appearance: grossly normal Mental Status: mental status grossly normal Objective Data Vital Signs Vital Signs: Vital Signs - 24 hr 12/12/20 16:00 12/12/20 16:29 12/12/20 22:00 Temperature 36.9 C 36.1 C L Pulse Rate 71 73 79 Respiratory Rate 20 16 Blood Pressure 140/65 130/82 Pulse Oximetry 96 97 12/13/20 00:00 12/13/20 04:00 12/13/20 06:00 Temperature 36.2 C L Pulse Rate 75 90 80 Respiratory Rate 18 Blood Pressure 165/68 H Pulse Oximetry 94 12/13/20 09:35 12/13/20 09:59 Temperature Pulse Rate 60 Respiratory Rate Blood Pressure Pulse Oximetry 95 Intake/Output Intake/Output: Intake & Output 12/10/20 12/11/20 12/12/20 12/13/20 23:59 23:59 23:59 23:59 Intake Total 5840 4670 2810 Output Total 2550 1350 550 Balance 3290 3320 2260 Meds/Results Medications: Active Medications Generic Name Dose Route Start Last Admin Trade Name Freq PRN Reason Stop Dose Admin Acetaminophen 1,000 mg 12/11/20 14:39 Acetaminophen 500 Mg Tablet PO Q6H PRN Pain Rated 5 or Less Hydrocodone Bitart/Acetaminophen 1 tab 12/11/20 14:39 12/13/20 05:00 Hydrocodone/Acetaminophen (*Crx) 5-325 Mg Tablet PO 1 tab Q6H PRN Administration Pain Rated 6 or Greater Clonazepam 0.5 mg 12/11/20 12:27 12/12/20 02:20 Clonazepa
[2020-12-13] MEDS: clonazePAM (*CRX) 0.5 MG TABLET PO (18:31)
[2020-12-13] MEDS: ENOXAPARIN 30 MG/0.3 ML SYRINGE SUB-Q (20:44)
[2020-12-13] MEDS: traZODone HCL 50 MG TABLET PO (20:44)
[2020-12-14] VITALS (7 sets, daily range): BP systolic 132–146; BP diastolic 61–70; PULSE 63–75; RESP 16; TEMP 35.6–36.4; O2SAT 95
[2020-12-14 05:05] LABS: Thyroglobulin 1.8 ng/mL (2.8-40.9); Thyroglobulin Antibodies <1 IU/mL (<=1)
[2020-12-14] MEDS: LEVOTHYROXINE SODIUM 112 MCG TABLET PO (06:40)
[2020-12-14 06:48] LABS: Alanine Aminotransferase 17 U/L (4-35); Albumin Level 3.7 g/dL (3.5-5.1); Alkaline Phosphatase 57 U/L (38-126); Anion Gap 9 mmol/L (8-16); Aspartate Amino Transferase 30 U/L (14-36); Bilirubin,Total 0.2 mg/dL (0.2-1.3); Blood Urea Nitrogen 26 mg/dL (7-17); Calcium 9.1 mg/dL (8.4-10.2); Carbon Dioxide 23 mmol/L (22-30); Chloride 109 mmol/L (98-107); Estimated CRCL calculation 21 ml/min; Estimated Glomerular Filt Rate 21; Glucose 103 mg/dL (65-105); Phosphorus 1.9 mg/dL (2.5-4.5); Sodium 141 mmol/L (137-145)
[2020-12-14] MEDS: HYDROcodone/acetaminophen (*CRX) 5-325 MG TABLET 1 TAB PO ×3 (07:04→20:47)
[2020-12-14] MEDS: GABAPENTIN 300 MG CAPSULE PO ×3 (09:06→17:07)
[2020-12-14] MEDS: POTASSIUM CHLORIDE 20 MEQ TABLET.ER 40 MEQ PO ×2 (09:06→17:07)
[2020-12-14] MEDS: PANTOPRAZOLE 40 MG TABLET PO (09:06)
[2020-12-14] MEDS: PARoxetine 20 MG TABLET 40 MG PO (09:07)
--- NOTE | 2020-12-14 11:50 | PM.PNNEP ---
Progress Note: A&P Assessment and Plan (1) Acute kidney injury: Code(s): N17.9 - Acute kidney failure, unspecified Status: Resolved Assessment and Plan: Acute kidney injury Urine electrolytes are non pre renal. Urine eosinophils are pending renal ultrasound is normal Most likely this is related to NSAID use and hypercalcemia. Calcium is better. She is off the NSAIDs. creatinine is better. 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 Calcium level is fine. Subjective Date/time seen: 12/14/20 11:50 Interval history: Patient feels okay today. Breathing is much better. Made lots of urine yesterday. Exam Narrative: Exam Narrative: GENERAL APPEARANCE: well developed well nourished female in no acute distress CARDIOVASCULAR: RRR, normal S1 and S2, no rub RESPIRATORY: clear long ABDOMEN: soft, nontender, nondistended, positive bowel sounds present EXTREMITIES: Not much edema NEUROLOGICAL: alert and oriented x 3; CN II - XII intact bilaterally; no focal deficits noted Objective Data Vital Signs Vital Signs: Vital Signs - 24 hr 12/13/20 12:00 12/13/20 15:00 12/13/20 16:00 Temperature 36.4 C Pulse Rate 80 75 80 Respiratory Rate 16 Blood Pressure 120/54 L Pulse Oximetry 95 12/13/20 20:00 12/13/20 23:11 12/14/20 00:00 Temperature 37.3 C Pulse Rate 68 70 73 Respiratory Rate 18 Blood Pressure 137/57 L Pulse Oximetry 96 12/14/20 04:00 12/14/20 08:00 Temperature Pulse Rate 75 64 Respiratory Rate Blood Pressure Pulse Oximetry Intake/Output Intake/Output: Intake & Output 12/11/20 12/12/20 12/13/20 12/14/20 23:59 23:59 23:59 23:59 Intake Total 5840 4670 4400 720 Output Total 2550 1350 550 Balance 3290 3320 3850 720 Meds/Results Medications: Active Medications Generic Name Dose Route Start Last Admin Trade Name Devendra PRN Reason Stop Dose Admin Acetaminophen 1,000 mg 12/11/20 14:39 Acetaminophen 500 Mg Tablet PO Q6H PRN Pain Rated 5 or Less Hydrocodone Bitart/Acetaminophen 1 tab 12/11/20 14:39 12/14/20 07:04 Hydrocodone/Acetaminophen (*Crx) 5-325 Mg Tablet PO 1 tab Q6H PRN Administration Pain Rated 6 or Greater Clonazepam 0.5 mg 12/11/20 12:27 12/13/20 18:31 Clonazepam (*Crx) 0.5 Mg Tablet PO 0.5 mg BID PRN Administration Anxiety Enoxaparin Sodium 30 mg 12/11/20 21:00 12/13/20 20:44 Enoxaparin 30 Mg/0.3 Ml Syringe SUB-Q 30 mg Q24H RACQUEL Administration Famotidine 20 mg 12/11/20 12:27 12/11/20 20:31 Famotidine 20 Mg Tablet PO 20 mg BID PRN Administration Acid Reflux Gabapentin 300 mg 12/11/20 13:00 12/14/20 09:06 Gabapentin 300 Mg Capsule PO 300 mg TID RACQUEL Administration Levothyroxine Sodium 112 mcg 12/12/20 06:30 12/14/20 06:40 Levothyroxine Sodium 112 Mcg Tablet PO 112 mcg DAILY@0630 RACQUEL Administration Ondansetron HCl 4 mg 12/11/20 04:12 12/13/20 18:27 Ondansetron Inj 4 Mg/2 Ml Vial IV PUSH 4 mg Q4H PRN Administration Nausea Pantoprazole Sodium 40 mg 12/12/20 09:00 12/14/20 09:06 Pantoprazole 40 Mg Tablet PO 40 mg DAILY RACQUEL Administration Paroxetine HCl 40 mg 12/12/20 09:00 12/14/20 09:07 Paroxetine 20 Mg Tablet PO 40 mg DAILY RACQUEL Administration Potassium Chloride 40 meq 12/13/20 10:35 12/14/20 09:06 Potassium Chloride 20 Meq Tablet.Er PO 40 meq BIDWM RACQUEL Administration Trazodone HCl 50 mg 12/12/20 21:00 12/13/20 20:44 Trazodone Hcl 50 Mg Tablet PO 50 mg HS RACQUEL Administration Radiology Results: ITS I
--- NOTE | 2020-12-14 15:31 | PM.IMPN ---
Progress Note: A&P Assessment and Plan (1) Acute kidney injury: Code(s): N17.9 - Acute kidney failure, unspecified Status: Resolved Assessment and Plan: Likely due to hypercalcmiea, dehydration. Improved with hydration F/u lab (2) Hypercalcemia: Code(s): E83.52 - Hypercalcemia Status: Acute Assessment and Plan: S/P calcitonin and continue to monitor calcium levels Stopped calcium supplements at admission 12/14 9.1 with albumin 3.7 (3) Cancer of thyroid: Code(s): C73 - Malignant neoplasm of thyroid gland Status: Acute Assessment and Plan: thyroid cancer status post thyroidectomy done in August of 2020. According the patient she had thyroid biopsy done in April of 2028 came back negative, Pt taking levothyroixine. Bone scan is negative (4) Left hip pain: Code(s): M25.552 - Pain in left hip Status: Acute Assessment and Plan: PT had xray of hips and pelvic looks like advanced OA of left hip continue pain medications in hospital (5) Chronic pain: Code(s): G89.29 - Other chronic pain Status: Acute Assessment and Plan: PT had CT chest, CT head and CT c spine as she pased out on admission. Subjective Date/time seen: 12/14/20 15:31 Interval history: 60 y/o f admitted 12/11 for hypercalcemia and syncope after recent surgery for thyroid CA. 12/14: Tolerating diet. Still feeling weak. Willing to do PT. Review of Systems Review of Systems: All systems reviewed & are unremarkable except as noted in HPI and below Exam Narrative: Exam Narrative: HEENT: EOMI, PERRL, sclerae nonicteric, pharyngeal mucosa pink and intact NECK: No JVD, well healed thyroidectomy scar CHEST: Clear to auscultation. Normal effort. HEART: NL S1/S2, regular, no murmur ABDOMEN: BS+, soft, nontender, no mass, no bruits EXTREMITIES: No cyanosis, edema, or clubbing NEUROLOGIC: CN intact and symmetric to inspection. MUSCULOSKELETAL: Tone and strength symmetric. PSYCH: Alert. Oriented to person, place, and time. Objective Data Vital Signs Vital Signs: Vital Signs - 24 hr 12/13/20 16:00 12/13/20 20:00 12/13/20 23:11 Temperature 99.2 F Pulse Rate 80 68 70 Respiratory Rate 18 Blood Pressure 137/57 L Pulse Oximetry 96 12/14/20 00:00 12/14/20 04:00 12/14/20 08:00 Temperature Pulse Rate 73 75 64 Respiratory Rate Blood Pressure Pulse Oximetry 12/14/20 12:00 12/14/20 14:00 Temperature 97.6 F Pulse Rate 63 69 Respiratory Rate 16 Blood Pressure 132/61 Pulse Oximetry 95 Intake/Output Intake/Output: Intake & Output 12/11/20 12/12/20 12/13/20 12/14/20 23:59 23:59 23:59 23:59 Intake Total 5840 4670 4400 720 Output Total 2550 1350 550 Balance 3290 3320 3850 720 Meds/Results Medications: Active Medications Generic Name Dose Route Start Last Admin Trade Name Freq PRN Reason Stop Dose Admin Acetaminophen 1,000 mg 12/11/20 14:39 Acetaminophen 500 Mg Tablet PO Q6H PRN Pain Rated 5 or Less Hydrocodone Bitart/Acetaminophen 1 tab 12/11/20 14:39 12/14/20 15:30 Hydrocodone/Acetaminophen (*Crx) 5-325 Mg Tablet PO 1 tab Q6H PRN Administration Pain Rated 6 or Greater Clonazepam 0.5 mg 12/11/20 12:27 12/13/20 18:31 Clonazepam (*Crx) 0.5 Mg Tablet PO 0.5 mg BID PRN Administration Anxiety Enoxaparin Sodium 30 mg 12/11/20 21:00 12/13/20 20:44 Enoxaparin 30 Mg/0.3 Ml Syringe SUB-Q 30 mg Q24H RACQUEL Administration Famotidine 20 mg 12/11/20 12:27 12/11/20 20:31 Famotidine 20 Mg Tablet PO 20 mg BID PRN Administration Acid Reflux Gabapentin 300 mg 12/11/20 13:00 12/14/20 12:20 Gabapentin 300 Mg Capsule PO 300 mg TID RACQUEL Administration Levothyroxine Sodium 112 mcg 12/12/20 06:30 12/14/20 06:40 Levothyroxine Sodium 112 Mcg Tablet PO 112 mcg DAILY@0630 RACQUEL Administration Ondansetron HCl 4 mg 12/11/20 04:12 12/13/20 18:
[2020-12-14 19:22] LABS: Eosinophil Urine None Seen % (None Seen)
[2020-12-14] MEDS: ENOXAPARIN 30 MG/0.3 ML SYRINGE SUB-Q (20:47)
[2020-12-14] MEDS: traZODone HCL 50 MG TABLET PO (20:48)
[2020-12-15 05:53] VITALS: BP 128/71; PULSE 66; RESP 18; TEMP 37.1; O2SAT 96
[2020-12-15 06:26] LABS: Hematocrit 28.6 % (37.0-47.0); Hemoglobin 9.4 g/dL (12.0-15.0); Mean Corpuscular HGB Conc 32.9 g/dl (32-36); Mean Corpuscular Volume 88.3 fl (80-100); Mean Platelet Volume 10.6 fl (7.4-10.4); Platelet Count Result 239 k/mm3 (150-375); Red Blood Count 3.24 M/mm3 (4.2-5.4); Red Cell Distribution Width 12.6 % (11.5-14.5); White Blood Count 8.6 K/mm3 (4.5-10.0)
[2020-12-15 06:40] LABS: Alanine Aminotransferase 23 U/L (4-35); Albumin Level 3.5 g/dL (3.5-5.1); Alkaline Phosphatase 67 U/L (38-126); Anion Gap 9 mmol/L (8-16); Aspartate Amino Transferase 27 U/L (14-36); Bilirubin,Total 0.2 mg/dL (0.2-1.3); Blood Urea Nitrogen 25 mg/dL (7-17); Calcium 8.6 mg/dL (8.4-10.2); Carbon Dioxide 22 mmol/L (22-30); Chloride 112 mmol/L (98-107); Estimated CRCL calculation 25 ml/min; Estimated Glomerular Filt Rate 25; Glucose 89 mg/dL (65-105); Magnesium 1.6 mg/dL (1.6-2.3); Phosphorus 1.5 mg/dL (2.5-4.5); Potassium 3.7 mmol/L (3.4-5.0); Sodium 143 mmol/L (137-145)
[2020-12-15] MEDS: LEVOTHYROXINE SODIUM 112 MCG TABLET PO (06:40)
[2020-12-15] MEDS: POTASSIUM CHLORIDE 20 MEQ TABLET.ER 40 MEQ PO (08:24)
[2020-12-15] MEDS: PANTOPRAZOLE 40 MG TABLET PO (08:24)
[2020-12-15] MEDS: PARoxetine 20 MG TABLET 40 MG PO (08:24)
[2020-12-15] MEDS: GABAPENTIN 300 MG CAPSULE PO ×2 (08:24→11:54)
[2020-12-15] MEDS: HYDROcodone/acetaminophen (*CRX) 5-325 MG TABLET 1 TAB PO (08:25)
--- NOTE | 2020-12-15 10:28 | PM.DS ---
DS: Admitting Diagnosis Admitting Diagnosis Admitting Diagnosis: Hypercalcemia with dehydration DS: Discharge Diagnosis Discharge Diagnosis (1) Acute kidney injury: Code(s): N17.9 - Acute kidney failure, unspecified Status: Resolved Assessment and Plan: Likely due to hypercalcmiea, dehydration. Improved with hydration F/u lab improved (cr 3.6 --> 2.0) Will need f/u as outpatient (2) Hypercalcemia: Code(s): E83.52 - Hypercalcemia Status: Acute Assessment and Plan: S/P calcitonin and continue to monitor calcium levels Stopped calcium supplements at admission 12/14 9.1 with albumin 3.7 12/15 8.6 with albumin 3.5 (3) Cancer of thyroid: Code(s): C73 - Malignant neoplasm of thyroid gland Status: Acute Assessment and Plan: thyroid cancer status post thyroidectomy done in August of 2020. According the patient she had thyroid biopsy done in April of 2028 came back negative, Pt taking levothyroixine. Bone scan is negative (4) Left hip pain: Code(s): M25.552 - Pain in left hip Status: Acute Assessment and Plan: PT had xray of hips and pelvic looks like advanced OA of left hip continue pain medications in hospital (5) Chronic pain: Code(s): G89.29 - Other chronic pain Status: Acute Assessment and Plan: PT had CT chest, CT head and CT c spine as she pased out on admission. (6) UTI (urinary tract infection), bacterial: Code(s): N39.0 - Urinary tract infection, site not specified; A49.9 - Bacterial infection, unspecified Status: Acute Assessment and Plan: E. coli report received on afternoon of discharge Cefdinir 300mg daily for days. DS: Summary Hospital Course Reason for hospitalization: Hypercalcemia with dehydration Hospital Course: Patient presented with weakness and feeling shaky. Found to have hypercalcemia with serum calcium 17.1. She was treated with calcitonin IV saline and furosemide. Calcium improved to normal range. Creatinine was 3.6 at admission improved to 2.0 by discharge. Her calcium supplements and vitamin-D supplements were discontinued. She had recently undergone thyroidectomy for thyroid cancer and had started calcium and vitamin-D supplements postoperatively. By day of discharge she was up and about in her usual fashion and tolerating her diet. Status at Discharge Overall status at discharge: patient is progressing back to baseline Time Spent with Patient Time attestation: Total time spent providing and/or coordinating discharge services: Time spent: Greater than 30 minutes Exam Narrative: Exam Narrative: HEENT: EOMI, PERRL, sclerae nonicteric, pharyngeal mucosa pink and intact NECK: No JVD, well healed thyroidectomy scar CHEST: Clear to auscultation. Normal effort. HEART: NL S1/S2, regular, no murmur ABDOMEN: BS+, soft, nontender, no mass, no bruits EXTREMITIES: No cyanosis, edema, or clubbing NEUROLOGIC: CN intact and symmetric to inspection. MUSCULOSKELETAL: Tone and strength symmetric. PSYCH: Alert. Oriented to person, place, and time. DS: Data Data Completed and Pending Labs on day of discharge: Labs from last 24 hours 12/15/20 12/15/20 12/14/20 06:05 06:05 18:14 WBC 8.6 RBC 3.24 L Hgb 9.4 L Hct 28.6 L MCV 88.3 MCH 29.0 MCHC 32.9 RDW 12.6 Plt Count 239 MPV 10.6 H Sodium 143 Potassium 3.7 Chloride 112 H Carbon Dioxide 22 Anion Gap 9 BUN 25 H Creatinine 2.00 H Estim Creat Clear Calc 25 Estimated GFR 25 L Glucose 89 Calcium 8.6 Phosphorus 1.5 L Magnesium 1.6 Total Bilirubin 0.2 Direct Bilirubin 0.0 AST 27 ALT 23 Alkaline Phosphatase 67 Total Protein 7.0 Albumin 3.5 Urine Eosinophils None seen Discharge Plan Discharge Consulting providers: Dodie Ferguson ; Luigi Jane Discharging Clinician: Kemar Cervantes Patient Disposition: Home, [place]
[2020-12-15] MEDS: clonazePAM (*CRX) 0.5 MG TABLET PO (11:57)
--- NOTE | 2020-12-15 12:26 | PM.PNNEP ---
Progress Note: A&P Assessment and Plan (1) Acute kidney injury: Code(s): N17.9 - Acute kidney failure, unspecified Status: Resolved Assessment and Plan: Acute kidney injury Urine electrolytes are non pre renal. Urine eosinophils are pending renal ultrasound is normal Most likely this is related to NSAID use and hypercalcemia. Calcium is better. She is off the NSAIDs. creatinine continues to improve. She is going home today she says. She should follow-up with Dr. Ferguson as an outpatient. 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 Calcium level is fine. She was on calcium supplements for a long time. The high calcium may have been a result of the renal failure rather than the calcium supplements. She can probably go back on these down the line but she should do these together with Dr. Ferguson. Phosphorus is a little low. Will give supplement. Subjective Date/time seen: 12/15/20 12:26 Interval history: Patient feels okay today. Slept well. Eager for discharge Exam Narrative: Exam Narrative: GENERAL APPEARANCE: well developed well nourished female in no acute distress CARDIOVASCULAR: RRR, normal S1 and S2, no rub RESPIRATORY: clear bilaterally ABDOMEN: soft, nontender, nondistended, positive bowel sounds present EXTREMITIES: Not much edema Skin: No rash Objective Data Vital Signs Vital Signs: Vital Signs - 24 hr 12/14/20 14:00 12/14/20 16:00 12/14/20 20:51 Temperature 36.4 C 35.6 C L Pulse Rate 69 65 74 Respiratory Rate 16 16 Blood Pressure 132/61 146/70 H Pulse Oximetry 95 95 12/15/20 05:53 Temperature 37.1 C Pulse Rate 66 Respiratory Rate 18 Blood Pressure 128/71 Pulse Oximetry 96 Intake/Output Intake/Output: Intake & Output 12/12/20 12/13/20 12/14/20 12/15/20 23:59 23:59 23:59 23:59 Intake Total 4670 4400 2420 660 Output Total 1350 550 Balance 3320 3850 2420 660 Meds/Results Medications: Active Medications Generic Name Dose Route Start Last Admin Trade Name Freq PRN Reason Stop Dose Admin Acetaminophen 1,000 mg 12/11/20 14:39 Acetaminophen 500 Mg Tablet PO Q6H PRN Pain Rated 5 or Less Hydrocodone Bitart/Acetaminophen 1 tab 12/11/20 14:39 12/15/20 08:25 Hydrocodone/Acetaminophen (*Crx) 5-325 Mg Tablet PO 1 tab Q6H PRN Administration Pain Rated 6 or Greater Clonazepam 0.5 mg 12/11/20 12:27 12/15/20 11:57 Clonazepam (*Crx) 0.5 Mg Tablet PO 0.5 mg BID PRN Administration Anxiety Enoxaparin Sodium 30 mg 12/11/20 21:00 12/14/20 20:47 Enoxaparin 30 Mg/0.3 Ml Syringe SUB-Q 30 mg Q24H RACQUEL Administration Famotidine 20 mg 12/11/20 12:27 12/11/20 20:31 Famotidine 20 Mg Tablet PO 20 mg BID PRN Administration Acid Reflux Gabapentin 300 mg 12/11/20 13:00 12/15/20 11:54 Gabapentin 300 Mg Capsule PO 300 mg TID RACQUEL Administration Levothyroxine Sodium 112 mcg 12/12/20 06:30 12/15/20 06:40 Levothyroxine Sodium 112 Mcg Tablet PO 112 mcg DAILY@0630 RACQUEL Administration Ondansetron HCl 4 mg 12/11/20 04:12 12/13/20 18:27 Ondansetron Inj 4 Mg/2 Ml Vial IV PUSH 4 mg Q4H PRN Administration Nausea Pantoprazole Sodium 40 mg 12/12/20 09:00 12/15/20 08:24 Pantoprazole 40 Mg Tablet PO 40 mg DAILY RACQUEL Administration Paroxetine HCl 40 mg 12/12/20 09:00 12/15/20 08:24 Paroxetine 20 Mg Tablet PO 40 mg DAILY RACQUEL Administration Trazodone HCl 50 mg 12/12/20 21:00 12/14/20 20:48 Trazodone Hcl 50 Mg Tablet PO 50 mg HS RACQUEL Administration Radiology R
[2020-12-15] MEDS: POTASSIUM PHOS/SODIUM PHOS 250 MG TABLET PO (13:20)
[2020-12-16 05:34] LABS: Ionized Calcium 5.3 mg/dL (4.8-5.6)
[2020-12-16 21:17] LABS: Albumin 3.2 g/dL (3.8-4.8); Alpha 1 Globulin 0.3 g/dL (0.2-0.3); Alpha 2 Globulin 0.8 g/dL (0.5-0.9); Beta 1 Globulin 0.4 g/dL (0.4-0.6); Gamma Globulin 0.6 g/dL (0.8-1.7); Interpretation Consistent with; Protein, Total 5.7 g/dL (6.1-8.1)
[2020-12-17 05:36] LABS: Lambda Light Chain 18.7 mg/L (5.7-26.3)
[2020-12-17 19:01] LABS: Chloride Rand Ur 89 mmol/L (32-290); Chloride/Creatinine Rand Ur 234 (38-318); Creatinine Random Urine 38 mg/dL (20-275)
[2020-12-18 13:18] LABS: Creatinine, Random Urine 38 mg/dL (20-275); Total Protein/Creatinine Ratio 921 mg/g creat (21-161)
[2020-12-19 21:57] LABS: Angiotensin Converting Enzyme 37 U/L (9-67)
== END 2020-12-15 13:35 | disposition home or self-care (01) | DRG 469 ==
LOC: ANHED 00:38 → ANHIMU 07:19 → ANH3MEDSUR 12-14 09:53 → ANHIMU 12-17 12:32
PROVIDERS: Internal Medicine Hematology & Oncology; Internal Medicine Nephrology; Admitting Provider Internal Medicine; Emergency Provider General Practice; Visit Provider Internal Medicine
DX: N17.9 Acute kidney failure, unspecified (principal); E83.52 Hypercalcemia; E86.0 Dehydration; T39.395A Adverse effect of other nonsteroidal anti-inflammatory drugs [NSAID], initial encounter; C73 Malignant neoplasm of thyroid gland; M16.12 Unilateral primary osteoarthritis, left hip; G89.29 Other chronic pain; N39.0 Urinary tract infection, site not specified; B96.20 Unspecified Escherichia coli [E. coli] as the cause of diseases classified elsewhere; F17.210 Nicotine dependence, cigarettes, uncomplicated; F41.9 Anxiety disorder, unspecified; Z85.850 Personal history of malignant neoplasm of thyroid
CPT/HCPCS: 36415; 70450; 71045; 72125; 72192; 73502; 76775; 78306; 80048; 80053; 80069; 80076; 81001; 81050; 82164; 82306; 82330; 82436; 82570; 83519; 83735; 83883; 83970; 84100; 84155; 84156; 84165; 84166; 84300; 84432; 84443; 84484; 85025; 85027; 85380; 85610; 85730; 85999; 86140; 86800; 87077; 87086; 87088; 87186; 93005; 96361; 96365; 96375; 99285; A9270; A9561; J0131; J0630; J1650; J1940; J2405; J3489; J7030

== ENCOUNTER 2021-01-10 12:11 | Outpatient (CLI) | payer OTHER, SELFPAY ==
[2021-01-10 12:47] LABS: Basophils Absolute Auto 0.1 K/mm3 (0.0-0.1); Basophils Percent Auto 0.9 % (0.2-1.2); Eosinophils Absolute Auto 0.2 K/mm3 (0-0.3); Eosinophils Percent Auto 2.2 % (0-4.4); Hematocrit 39.7 % (37.0-47.0); Hemoglobin 12.7 g/dL (12.0-15.0); Immature Granulocyte Absolute 0.01 K/mm3 (0.00-0.031); Immature Granulocyte Percent A 0.1 % (0-0.5); Lymphocytes Percent Auto 28.9 % (18.3-44.2); Mean Corpuscular Hemoglobin 28.5 pg (26-34); Mean Corpuscular Volume 89.2 fl (80-100); Mean Platelet Volume 9.1 fl (7.4-10.4); Monocytes Absolute Auto 0.7 K/mm3 (0.1-0.6); Monocytes Percent Auto 8.1 % (2.6-8.5); Neutrophils Absolute Auto 5.2 K/mm3 (1.3-6.7); Neutrophils Percent Auto 59.8 % (45.5-73.1); Platelet Count Result 344 k/mm3 (150-375); Red Blood Count 4.45 M/mm3 (4.2-5.4); Red Cell Distribution Width 12.8 % (11.5-14.5); White Blood Count 8.7 K/mm3 (4.5-10.0)
[2021-01-10 14:34] LABS: Alanine Aminotransferase 16 U/L (4-35); Albumin Level 4.6 g/dL (3.5-5.1); Alkaline Phosphatase 100 U/L (38-126); Anion Gap 10 mmol/L (8-16); Aspartate Amino Transferase 23 U/L (14-36); Bilirubin,Total 0.4 mg/dL (0.2-1.3); Blood Urea Nitrogen 16 mg/dL (7-17); Calcium 8.3 mg/dL (8.4-10.2); Carbon Dioxide 25 mmol/L (22-30); Chloride 106 mmol/L (98-107); Estimated Glomerular Filt Rate 56; Glucose 93 mg/dL (65-105); Potassium 4.9 mmol/L (3.4-5.0); Sodium 141 mmol/L (137-145)
== END 2021-01-10 12:12 | disposition home or self-care (01) ==
LOC: ANHLAB 12:22
PROVIDERS: Visit Provider Internal Medicine Hematology & Oncology
DX: C73 Malignant neoplasm of thyroid gland (principal)
CPT/HCPCS: 36415; 80053; 85025

== ENCOUNTER 2021-06-02 11:57 | Emergency (ER) | payer OTHER, SELFPAY ==
--- NOTE | ~2021-06-02 | XR_ITS ---
EXAMINATION: XR chest 2V 06/02/2021 12:28 INDICATION: Shortness of breath. Sore throat. PROCEDURE: 2 view chest COMPARISON: Comparison to multiple prior studies sequentially, with oldest reviewed study dated 05/06. FINDINGS: The lungs are clear. Calcified granuloma right upper thorax. The cardiomediastinal silhouet te is within normal limits. There are no pleural effusions. There is no pneumothorax suspected. IMPRESSION: 1: NO ACUTE CARDIOPULMONARY DISEASE. Reviewed, dictated and finalized at location B. [place] [employer]
--- NOTE | ~2021-06-02 | CT_ITS ---
EXAMINATION: CT soft tissue neck w con EXAM DATE: 06/02/2021 13:42 INDICATION: Rule out recurrence of thyroid cancer. TECHNIQUE: Spiral CT of the neck was performed following intravenous injection of 75 mL Omnipaque 350 . Axial, coronal and sagittal images were reviewed. The dose-length product (DLP) for this examinat ion was 545.38 mGy-cm. The exposure was tailored according to patient size (auto mA exposure control ), and iterative reconstruction (ASIR) was used as additional dose reduction technique. There is no prior study for comparison. FINDINGS: There is mild asymmetry of the airway at the aryepiglottic folds without discrete mass iden tified. Unremarkable thyroidectomy bed. The submandibular and parotid glands are symmetric. Ther e is no cervical lymphadenopathy. The superior mediastinum is unremarkable. Parapharyngeal and pre-glottic fat planes are preserved. The opacified vasculature is patent. The orbits are unrema rkable. Visualized sinuses and mastoid air cells are well aerated. Right upper lobe calcified gra nuloma. Overall moderate cervical spondylosis. IMPRESSION: 1. Glottic asymmetry at the aryepiglottic folds without discrete mass identified. 2. Surgical changes from thyroidectomy and possible cervical lymph node dissection. Reviewed, dictated and finalized at location A. RONMENTAL MANAGEMENT SPECIALIST IMPRESSION: 1. Glottic asymmetry at the aryepiglottic folds without discrete mass identif ied. 2. Surgical changes from thyroidectomy and possible cervical lymph node dissec tion.
[2021-06-02 11:58] VITALS: BP 135/74; PULSE 85; RESP 22; TEMP 36.4; O2SAT 96
--- NOTE | 2021-06-02 12:01 | ECG_ITS ---
Measurements Intervals [place] Rate: 83 P: 57 ID: [id number] QRS: 57 QRSD: 85 T: 56 QT: 376 QTc: 442 Interpretive Statements SINUS RHYTHM BASELINE WANDER- I, V1, V3 NORMAL ECG Electronically Signed On 06-02-2021 12:06:38 TOOL DESIGNER by Lavon Amin D.O.
--- NOTE | 2021-06-02 12:14 | ED.SOB ---
HPI - SOB/Dyspnea General Chief Complaint: Shortness of Breath/Dyspnea Stated Complaint: SOB. Time Seen by Provider: 06/02/21 12:15 Source: patient, family and RN notes reviewed Mode of arrival: ambulatory Limitations: no limitations History of Present Illness HPI Narrative: Patient presents with pain and swelling in the front of her neck was noisy breathing not this last night History of thyroid cancer surgery August 2020, radiation therapy and chemotherapy. Patient denies difficulty breathing or difficulty swallowing just noisy breathing coming from the throat. Patient denies any fever, chills, nausea, vomiting, shortness of breath or chest pain. Patient also denies any headache. Patient is fully vaccinated for COVID-19. Patient reports no noise while breathing from the nose, only when she breathes from the mouth Related Data Home Medications Medication Instructions Recorded Confirmed atorvastatin 40 mg PO HS 07/05/20 12/11/20 famotidine 20 mg PO BID PRN 07/05/20 12/11/20 fluticasone propionate 1 spray INTRANASAL DAILY 07/05/20 12/11/20 gabapentin 300 mg PO TID 07/05/20 12/11/20 pantoprazole 40 mg PO DAILY 07/05/20 12/11/20 paroxetine HCl 40 mg PO DAILY 07/05/20 12/11/20 trazodone 50 mg PO DAILY 07/05/20 12/11/20 Biofreeze (menthol) 1 ea TOPICAL QID PRN 12/11/20 12/11/20 [place]-3 Fish Oil 3 cap PO DAILY 12/11/20 12/11/20 clonazepam 0.5 mg PO BID PRN 12/11/20 12/11/20 [id number]-cmuhk-pgk-vit C-Mn 3 tablet PO DAILY 12/11/20 12/11/20 levothyroxine 112 mcg PO DAILY 12/11/20 12/11/20 methyl salicylate-menthol 1 applic TOPICAL QID PRN 12/11/20 12/11/20 vitamin B complex 1 cap PO DAILY 12/11/20 12/11/20 vitamin E 200 unit PO TID 12/11/20 12/11/20 Allergies Allergy/AdvReac Type Severity Reaction Status Date / Time No Known Allergies Allergy Mild Verified 06/02/21 12:50 Review of Systems Review of Systems: CONSTITUTIONAL: Denies fever, chills, or sweats. EYES: Denies visual changes, redness, or discharge. ENT: Denies rhinorrhea, congestion, sore throat, or otalgia. CARDIOVASCULAR: Denies chest pain, palpitations, or edema. RESPIRATORY: Denies cough or dyspnea. GASTROINTESTINAL: Denies abdominal pain, nausea, vomiting, or diarrhea. GENITOURINARY: Denies dysuria or hematuria. SKIN: Denies rash or itching. MUSCULOSKELETAL: Denies back pain, joint pain, or myalgia. NEUROLOGIC: Denies headache, numbness, or weakness. PSYCHIATRIC: Denies anxiety or depression. [facility] Past Medical History Medical History Anxiety Thyroid cancer Surgical History Surgical History History of thyroidectomy Family History Family History Mother Diabetes mellitus Social History Social History Years smoked: 46 Smoking status: Current every day smoker Tobacco type: cigarettes Second hand tobacco smoke exposure: Yes Alcohol intake: never Substance use: never Gender identity (if verbalized by the patient): Female Spiritual care concerns: No Exam Narrative: General appearance: Well-developed, well-nourished Skin: Normal color Head: Normocephalic, nontraumatic Eyes: Clear conjunctiva ENT: Oropharynx normal, ears normal, nose normal Neck: Mild tenderness of the neck anteriorly at the surgical scar area. No bruises, no swelling, no erythema, no discharge, no mass or lymphadenopathy. Chest and respiratory: Airway patent, no respiratory distress, no accessory muscle use Heart: Regular rate/rhythm Abdomen: Soft, nontender, no organomegaly, quiet bowel sounds Vascular: Normal peripheral pulses, normal capillary refill. Musculoskeletal: Normal range of motion, nontender back Neurologic: Alert and oriented ?3, SACK KEEPER is normal as tested, no gross motor deficit
[2021-06-02 12:15] LABS: Basophils Absolute Auto 0.1 K/mm3 (0.0-0.1); Basophils Percent Auto 0.7 % (0.2-1.2); Eosinophils Absolute Auto 0.1 K/mm3 (0-0.3); Eosinophils Percent Auto 1.2 % (0-4.4); Hematocrit 40.1 % (37.0-47.0); Hemoglobin 13.6 g/dL (12.0-15.0); Immature Granulocyte Absolute 0.02 K/mm3 (0.00-0.031); Immature Granulocyte Percent A 0.2 % (0-0.5); Lymphocytes Absolute Auto 1.76 K/mm3 (0.9-3.2); Lymphocytes Percent Auto 19.3 % (18.3-44.2); Mean Corpuscular HGB Conc 33.9 g/dl (32-36); Mean Corpuscular Hemoglobin 30.8 pg (26-34); Mean Corpuscular Volume 90.7 fl (80-100); Mean Platelet Volume 9.3 fl (7.4-10.4); Monocytes Absolute Auto 0.9 K/mm3 (0.1-0.6); Monocytes Percent Auto 10.3 % (2.6-8.5); Neutrophils Absolute Auto 6.2 K/mm3 (1.3-6.7); Neutrophils Percent Auto 68.3 % (45.5-73.1); Platelet Count Result 221 k/mm3 (150-375); Red Blood Count 4.42 M/mm3 (4.2-5.4); Red Cell Distribution Width 12.5 % (11.5-14.5); White Blood Count 9.1 K/mm3 (4.5-10.0)
[2021-06-02 12:29] LABS: Alanine Aminotransferase 25 U/L (4-35); Albumin Level 4.6 g/dL (3.5-5.1); Alkaline Phosphatase 93 U/L (38-126); Anion Gap 10 mmol/L (8-16); Aspartate Amino Transferase 27 U/L (14-36); Bilirubin,Total 0.3 mg/dL (0.2-1.3); Blood Urea Nitrogen 16 mg/dL (7-17); Calcium 8.1 mg/dL (8.4-10.2); Carbon Dioxide 22 mmol/L (22-30); Chloride 102 mmol/L (98-107); Estimated CRCL calculation 64 ml/min; Estimated Glomerular Filt Rate > 60; Glucose 126 mg/dL (65-110); Potassium 3.9 mmol/L (3.4-5.0); Sodium 134 mmol/L (137-145)
[2021-06-02 12:41] VITALS: PULSE 79
[2021-06-02 12:42] VITALS: BP 117/66; PULSE 79; RESP 15; O2SAT 95
[2021-06-02 12:44] LABS: Alveolar/Arterial O2 Gradient 20.1 mmHg; Base Excess ABG -1.5 mEq/l (+/-2.0); Fractional Inspired Oxygen 21 %; HCO3 ABG 22.5 mEq/l (22.0-26.0); Oxygen Content ABG 18.5 %vol (16.0-22.0); Oxygen Saturation ABG 96.8 % (95.0-100.0); Oxyhemoglobin 92.8 % THb (90.0-100.0); PCO2 ABG 35.5 mmHg (35.0-45.0); PO2 ABG 87.1 mmHg (80.0-100.0); PO2 FiO2 Ratio Arterial Blood 4.15 %; Total Hemoglobin 14.1 g/dL (12.0-18.0); pH ABG 7.419 (7.350-7.450)
[2021-06-02 12:45] LABS: Device ROOM AIR; Modified Allen's Test Pass; Site Drawn RIGHT RADIAL
[2021-06-02 12:48] VITALS: O2SAT 95
[2021-06-02 13:25] LABS: D Dimer 0.41 ug/mL (<0.48)
[2021-06-02 14:10] VITALS: BP 124/61; PULSE 71; RESP 20; O2SAT 98
[2021-06-02 14:40] VITALS: BP 108/69; PULSE 70; RESP 16; O2SAT 98
== END 2021-06-02 14:40 | disposition home or self-care (01) ==
PROVIDERS: Emergency Provider Emergency Medicine
DX: R07.0 Pain in throat (principal); E89.0 Postprocedural hypothyroidism; Z85.850 Personal history of malignant neoplasm of thyroid; Z92.3 Personal history of irradiation; Z92.21 Personal history of antineoplastic chemotherapy; F17.210 Nicotine dependence, cigarettes, uncomplicated
CPT/HCPCS: 36415; 36600; 70491; 71046; 80053; 82805; 85025; 85380; 93005; 99284; Q9967

== ENCOUNTER 2022-07-06 20:58 | Inpatient (IN) | payer OTHER, SELFPAY ==
--- NOTE | ~2022-07-06 | XR_ITS ---
Portable chest x-ray Comparison: 06/02/2021 Clinical History: Altered mental status Findings: Stable calcified right upper lobe granuloma and calcified right hilar lymph nodes. Lungs a re otherwise clear. Cardiomediastinal silhouette is stable. Bones and soft tissues are unremarkable. Impression: No acute abnormality. Stable calcified right upper lobe granulomas and calcified right hilar lymph nodes. Reviewed, dictated and finalized at [facility]. GENERATOR Impression: No acute abnormality. Stable calcified right upper lobe granulomas and calcified right hilar lymph no nael.
--- NOTE | ~2022-07-06 | CT_ITS ---
Non-contrast Head CT History: Dizziness COMPARISON: 12/11/2020 Technique: Axial non-contrast imaging of the brain was performed. Dose reduction technique was used on this scan by utilizing automated exposure control and iterative reconstruction technique. The dose -length product (DLP) was 529.67 mGy-cm. Findings: There is no evidence of intracranial hemorrhage, mass lesion, or acute infarct. Brain par enchyma appears normal. The ventricles and subarachnoid spaces are normal in size. The calvarium ap pears normal. The visualized paranasal sinuses and mastoid air cells are clear. Impression: No significant abnormality seen. Exam mildly degraded by motion artifact. Reviewed, dictated and finalized at location . N MACHINE OPERATOR Impression: No significant abnormality seen. Exam mildly degraded by motion artifact.
--- NOTE | 2022-07-06 20:59 | ECG_ITS ---
Measurements Intervals [place] Rate: 86 P: 66 [place]: 131 QRS: 59 QRSD: 84 T: 50 QT: 382 QTc: 459 Interpretive Statements SINUS RHYTHM MINIMAL Q WAVES- ANTEROLAT/INF LEADS BORDERLINE ST ABNORMALITY- ANTEROLAT/INF LEADS BASELINE ARTIFACT- V4-V6 BORDERLINE ECG COMPARED TO ECG 06/02/2021 12:04:59 ST (T WAVE) DEVIATION NOW PRESENT Electronically Signed On 07-07-2022 6:37:39 WET PLANT OPERATOR by Lavon Amin D.O.
--- NOTE | 2022-07-06 21:13 | PC.NURSE ---
pt had initially been taken straight to CT due to new onsent of confusion but d/t pts agitation, aggression and the inability to redirect pt was brought back to assigned ED room with MD at bedside. verbal order for 1mg of ativan was given
[2022-07-06] MEDS: LORazepam INJ (*CRX) 2 MG/ML VIAL (21:18)
--- NOTE | 2022-07-06 21:19 | PC.NURSE ---
pt continues to be agitation, yelling and attempting to fight staff post ativan administration aware
[2022-07-06 21:20] VITALS: PULSE 90
--- NOTE | 2022-07-06 21:29 | PC.NURSE ---
sister at bedside reports that pt and pts have a history of cocaine use. reports had also given pt half of a norco and ibuprofen GAMEMASTER aware
[2022-07-06] MEDS: SODIUM CHLORIDE 0.9% IV 1,000 ML 999 ML IV CONT (21:34)
[2022-07-06 21:35] LABS: Basophils Absolute Auto 0.1 K/mm3 (0.0-0.1); Basophils Percent Auto 0.7 % (0.2-1.2); Eosinophils Absolute Auto 0.2 K/mm3 (0-0.3); Hematocrit 38.6 % (37.0-47.0); Hemoglobin 13.1 g/dL (12.0-15.0); Immature Granulocyte Absolute 0.07 K/mm3 (0.00-0.031); Immature Granulocyte Percent A 0.6 % (0-0.5); Lymphocytes Absolute Auto 2.45 K/mm3 (0.9-3.2); Mean Corpuscular HGB Conc 33.9 g/dl (32-36); Mean Corpuscular Hemoglobin 31.8 pg (26-34); Mean Corpuscular Volume 93.7 fl (80-100); Mean Platelet Volume 9.3 fl (7.4-10.4); Monocytes Percent Auto 9.1 % (2.6-8.5); Neutrophils Absolute Auto 7.3 K/mm3 (1.3-6.7); Neutrophils Percent Auto 65.6 % (45.5-73.1); Platelet Count Result 276 k/mm3 (150-375); Red Blood Count 4.12 M/mm3 (4.2-5.4); Red Cell Distribution Width 12.6 % (11.5-14.5); White Blood Count 11.2 K/mm3 (4.5-10.0)
[2022-07-06 21:36] LABS: Add Urine Microscopic? YES; Appearance Urine Clear (Clear); Bilirubin Urine Negative (Negative); Blood Urine Trace-Intact (Negative); Color Urine Yellow (Yellow); Glucose Urine UA Negative (Negative); Ketones Urine Negative (Negative); Leukocyte Esterase Ur 1+ LEU/UL (Negative); Nitrate Urine Negative (Negative); Protein Urine Negative (Negative); Specific Grav Ur <= 1.005 (1.001-1.035); Urobilinogen Urine 0.2 mg/dL (<2.0)
[2022-07-06 21:39] VITALS: BP 148/79; PULSE 81; RESP 18; TEMP 36.8; O2SAT 100
[2022-07-06 21:43] LABS: Ethanol < 10 mg/dL (<10)
[2022-07-06 21:44] LABS: Alanine Aminotransferase 24 U/L (6-35); Albumin Level 4.8 g/dL (3.5-5.1); Alkaline Phosphatase 85 U/L (38-126); Anion Gap 11 mmol/L (8-16); Aspartate Amino Transferase 24 U/L (14-36); Bilirubin,Total 0.5 mg/dL (0.2-1.3); Blood Urea Nitrogen 12 mg/dL (7-17); Calcium 8.6 mg/dL (8.4-10.2); Carbon Dioxide 23 mmol/L (22-30); Chloride 104 mmol/L (98-107); Creatine Kinase 63 U/L (30-135); Estimated Glomerular Filt Rate > 60; Glucose 104 mg/dL (65-110); Magnesium 1.8 mg/dL (1.6-2.3); Potassium 3.8 mmol/L (3.4-5.0); Sodium 138 mmol/L (137-145)
[2022-07-06 21:46] LABS: Bacteria Urine 4+ /hpf; Mucus Urine Rare /lpf; RBC Urine 0-2 /hpf (0-2); Squamous Epithelial Cell Urine Rare /hpf (Few); WBC Urine 21-30 /hpf
[2022-07-06 21:52] LABS: Partial Thromboplastin Time 26.3 SECONDS (22.3-36.8); Prothrombin Time 12.8 Seconds (11.1-14.7)
[2022-07-06 21:55] LABS: Troponin I < 0.012 ng/mL (0.000-0.034)
[2022-07-06 21:56] LABS: Amphetamine Screen Urine Negative (Negative); Barbiturate Screen Urine Negative (Negative); Benzodiazepines Screen Urine Negative (Negative); Cannabinoid Screen Urine Negative (Negative); Cocaine Screen Urine Negative (Negative); Methadone Screen Urine Negative (Negative); Opiate Screen Urine Positive (Negative); Phencyclidine Screen Urine Negative (Negative)
--- NOTE | 2022-07-06 22:05 | ED.NEUROSD ---
HPI - Neuro Symptoms/Deficit General Chief Complaint: Suspected CVA Stated Complaint: altered mental status Source: EMS and RN notes reviewed History of Present Illness HPI Narrative: Patient presents emergency department from home via EMS for altered mental status. History is per EMS as the patient is unable to give any history patient was at home with her has been lasting patient at 6 PM the patient is acting normal patient then called EMS prior to arrival as the patient was noted to be altered and throwing things around the room. The patient was currently rolling around in bed when EMS arrived she will briefly with sternal rub awakened and was able to tell me her name she knows she is a hospital but can give no other history. Related Data Home Medications Medication Instructions Recorded Confirmed atorvastatin 40 mg tablet 40 mg PO HS 07/05/20 12/11/20 famotidine 20 mg tablet 20 mg PO BID PRN Acid Reflux 07/05/20 12/11/20 fluticasone propionate 50 1 spray intranasal DAILY 07/05/20 12/11/20 mcg/actuation nasal spray,suspension gabapentin 300 mg capsule 300 mg PO TID 07/05/20 12/11/20 pantoprazole 40 mg tablet,delayed 40 mg PO DAILY 07/05/20 12/11/20 release paroxetine HCl 40 mg tablet 40 mg PO DAILY 07/05/20 12/11/20 trazodone 50 mg tablet 50 mg PO DAILY 07/05/20 12/11/20 clonazepam 0.5 mg tablet 0.5 mg PO BID PRN Anxiety 12/11/20 12/11/20 iietowbaofd-klpro-gkf-vit C-Mn 500 3 tablet PO DAILY 12/11/20 12/11/20 mg-400 mg-333 mg-3 mg tablet levothyroxine 112 mcg tablet 112 mcg PO DAILY 12/11/20 12/11/20 menthol 5 % topical gel (Biofreeze 1 ea topical QID PRN Pain 12/11/20 12/11/20 (menthol)) methyl salicylate-menthol topical 1 applic topical QID PRN Pain 12/11/20 12/11/20 ointment omega-3s 300 yg-eaj-swr-other 3 cap PO DAILY 12/11/20 12/11/20 bbflx9m-nilv oil 1,000 mg capsule ([place]-3 Fish Oil) vitamin B complex 1 cap PO DAILY 12/11/20 12/11/20 vitamin E 200 unit capsule 200 unit PO TID 12/11/20 12/11/20 Allergies Allergy/AdvReac Type Severity Reaction Status Date / Time No Known Allergies Allergy Mild Verified 06/02/21 12:50 Review of Systems Review of Systems: ROS unobtainable: Yes unobtainable due to medical condition [facility] Past Medical History Medical History (Updated 07/07/22 @ 03:21 by Gavin Velarde DO) Anxiety Depression GERD (gastroesophageal reflux disease) Hyperlipidemia Osteoarthritis Thyroid cancer Surgical History Surgical History History of thyroidectomy Family History Family History Mother Diabetes mellitus Social History Social History Years smoked: 46 Smoking status: Current every day smoker Tobacco type: cigarettes Second hand tobacco smoke exposure: Yes Alcohol intake: never Substance use: never Gender identity (if verbalized by the patient): Female Spiritual care concerns: No Exam Narrative: APPEARANCE: Rolling around screaming out unable to be verbally redirected with sternal rub or briefly, alert rowan normal, back to being agitated EYES: PERRL HEENT: Normocephalic, atraumatic, OMM RESPIRATORY: No respiratory distress Clear to auscultation bilaterally with no rhonchi wheezing or rales. CARDIOVASCULAR: Regular rate and rhythm without murmurs rubs or gallops. ABDOMINAL: Soft, nontender, nondistended, no rebound or guarding MUSCULOSKELETAl: Moves all extremities. No clubbing, cyanosis or edema. NEURO: Patient rolling around in bed yelling having to be restrained by staff with sternal rub obese briefly become more awake state name and then back to being agitated SKIN:: Warm, dry. No rashes lesions or abrasions PSYCHIATRIC: Normal affect/mood, Course Course Emergency Course: Patient is very agitated in bed unable to be verbally redirected. Being held down
[2022-07-06 22:30] LABS: Lactic Acid Reflex 1.1 mmol/L (0.7-2.0)
--- NOTE | 2022-07-06 22:48 | PC.NURSE ---
Patient pulling at medical devices. Appears disoriented x4 and not responding to provider questions nor nursing commands. Soft restraints applied.
[2022-07-06 23:02] LABS: Thyroid Stimulating Hormone Reflex 0.735 uIU/mL (0.465-4.68)
[2022-07-07] MEDS: LORazepam INJ (*CRX) 2 MG/ML VIAL 1 MG IV PUSH ×2 (00:25→05:26)
--- NOTE | 2022-07-07 00:44 | PM.IMHP ---
H&P: HPI History of Present Illness Date/Time: 07/07/22 00:44 Chief Complaint: Altered mental status Narrative: Patient is a 61-year-old female with past medical history thyroid cancer status post thyroid radiation now on liothyronine, history of cocaine abuse, anxiety/depression, GERD, arthritis, hyperlipidemia presents to ED with altered mental status. Patient was nonverbal on my evaluation. History was taken by patient's sister. Patient over last couple days has been having increased pain from her arthritis, sister notes that patient has right hip zubu-as-euhu arthritis, left shoulder arthritis. She then took a dose of her 's baclofen 20 mg which she has never taken before. Since then she has become nonverbal more altered, more restless. Family notes that patient has arthritis of left shoulder so significant that she does not use her left arm much. Family notes that patient has undergone lot of stress recently as her is now on oxygen and has a poor prognosis. In the ED: Patient continues to should be writhing and very restless. Lab work shows within normal limits, WBC 11.2 K, UDS positive for opiate and no cocaine, urine shows 4+ bacteria and wbc's 21-30 otherwise negative nitrate and will do 1+ leuk esterase. Head CT was limited due to motion artifact but otherwise no definite hemorrhage, mass or midline shift. Patient be admitted for acute metabolic encephalopathy likely secondary to polypharmacy versus psychosis. Review of Systems Review of Systems: Unable to obtain due to mental status, nonverbal PMFSH Past Medical History Medical History (Updated 07/07/22 @ 00:53 by Sara Caro DO) Anxiety Depression GERD (gastroesophageal reflux disease) Hyperlipidemia Osteoarthritis Thyroid cancer Surgical History Surgical History History of thyroidectomy Family History Family History Mother Diabetes mellitus Social History Social History Years smoked: 46 Smoking status: Current every day smoker Tobacco type: cigarettes Second hand tobacco smoke exposure: Yes Alcohol intake: never Substance use: never Gender identity (if verbalized by the patient): Female Spiritual care concerns: No Meds Home Medications and Allergies Home Medications Medication Instructions Recorded Confirmed Type atorvastatin 40 mg tablet 40 mg PO HS 07/05/20 12/11/20 History famotidine 20 mg tablet 20 mg PO BID PRN Acid Reflux 07/05/20 12/11/20 History fluticasone propionate 50 1 spray intranasal DAILY 07/05/20 12/11/20 History mcg/actuation nasal spray,suspension gabapentin 300 mg capsule 300 mg PO TID 07/05/20 12/11/20 History pantoprazole 40 mg tablet,delayed 40 mg PO DAILY 07/05/20 12/11/20 History release paroxetine HCl 40 mg tablet 40 mg PO DAILY 07/05/20 12/11/20 History trazodone 50 mg tablet 50 mg PO DAILY 07/05/20 12/11/20 History clonazepam 0.5 mg tablet 0.5 mg PO BID PRN Anxiety 12/11/20 12/11/20 History tgsqublzltw-qysqz-mjg-vit C-Mn 500 3 tablet PO DAILY 12/11/20 12/11/20 History mg-400 mg-333 mg-3 mg tablet levothyroxine 112 mcg tablet 112 mcg PO DAILY 12/11/20 12/11/20 History menthol 5 % topical gel (Biofreeze 1 ea topical QID PRN Pain 12/11/20 12/11/20 History (menthol)) methyl salicylate-menthol topical 1 applic topical QID PRN Pain 12/11/20 12/11/20 History ointment omega-3s 300 jr-kht-yxe-other 3 cap PO DAILY 12/11/20 12/11/20 History rtohi8j-kaxw oil 1,000 mg capsule ([place]-3 Fish Oil) vitamin B complex 1 cap PO DAILY 12/11/20 12/11/20 History vitamin E 200 unit capsule 200 unit PO TID 12/11/20 12/11/20 History acetaminophen 500 mg tablet 1,000 mg PO Q8H PRN Pain #0 tabs 12/15/20 12/11/20 Rx cefdinir 300 mg capsule 300 mg PO DAILY #3 caps 12/15/20 Rx hydrocodone 5 mg-acetam
[2022-07-07] MEDS: SODIUM CHLORIDE 0.9% IV 1,000 ML 125 ML IV CONT ×2 (01:34→04:00)
[2022-07-07 01:42] LABS: Influenza A QL RT-PCR Negative (Negative); Influenza B QL RT-PCR Negative (Negative); SARS-CoV-2 RNA PCR Negative
--- NOTE | 2022-07-07 03:25 | ADMGEN ---
This patient, Brisa Hogan, was admitted to 3 [facility] Surg Room 307-01. Patient/family oriented to hospital policies and general routines including ID bracelet, bed and alarms, visiting hours, pain management, procedures, bathroom and other care routines, personal items, smoking policy, room service/diet, and visiting hours. Information on how to activate the Rapid Response Team has been discussed. Patient/Family are encouraged to report perceived risks to care and to ask questions if they do not understand what they are told or what they should do.
[2022-07-07 03:37] VITALS: BP 144/59; PULSE 90; RESP 22; TEMP 36.3; O2SAT 96
[2022-07-07 03:49] VITALS: BMI 28.9
--- NOTE | 2022-07-07 04:21 | PC.NURSE ---
Pt came to the floor at 0320 from the ER. Pt presents with moaning, groaning, pulling on objects, and involuntary full body thrashing. pt unresponsive to name. Pt yells and grabs medical staff when doing a linen change, depends change, and when positioning pt in bed. Observed pt opening eyes looking around room when pt doesn't think medical staff in room. Once pt sees RN in room pt quickly closes eyes and continues to thrash around in bed. Continued close monitoring by RN.
--- NOTE | 2022-07-07 07:46 | PC.NURSE ---
Pt trying to bite, grab, kick, and has scratch medical staff. Pt was made aware of her actions and safety was maintained during interactions with pt. Pt did break skin scratching a Tech while in contact with pt. Pt was given Ativan to help calm pt down. Pt continues thrashing, crying, and yelling 1 hour after administration. Continue monitoring will be maintained.
[2022-07-07 07:50] LABS: Procalcitonin 0.1 ng/mL
[2022-07-07 07:51] LABS: Free T4 Free Thyroxine 0.92 ng/mL (0.78-2.19)
[2022-07-07 09:08] LABS: Folic Acid 14.4 ng/mL (2.76->20)
[2022-07-07] MEDS: HALOPERIDOL LACTATE 5 MG/ML VIAL IM (10:09)
[2022-07-07] MEDS: CYANOCOBALAMIN INJ 1,000 MCG/ML VIAL 1000 MCG IM (10:10)
--- NOTE | 2022-07-07 10:47 | PM.IMPN ---
Progress Note: A&P Assessment and Plan (1) Acute metabolic encephalopathy: Code(s): G93.41 - Metabolic encephalopathy Status: Acute Assessment and Plan: Patient presented to the ED with c/o AMS and was nonverbal after taking a dose of her husbands baclofen. Patient is on numerous medications at home and likely had a drug interaction with the 'not prescribed' baclofen 20 mg tablet that she took baclofen half life is 2-6 hours, will continue to monitor overnight. Kidney function appears to be good no meningeal sign or other concerns for meningitis, labs are stable. If she starts to develop meningeal signs or fever then we may need to obtain a lumbar puncture TSH within normal limits, free T3 and free T4 within normal limits, no fever no other signs of thyrotoxicosis pupils slightly dilated on admission. She received a dose of benzodiazepines in ED and upon admission to the floor, no other clinical signs of serotonin syndrome Continue to hold psychiatric medications. if no improvement despite holding her psychiatric medications that may be we need to have psychiatric consultation for possible psychosis evaluation Patient pulled out her IV and received IM Haldol 5 mg x1 and Valium 5 mg IM x1. Will attempt to reinsert IV for PRN benzodiazepines. NPO until able to follow commands. Resume IV fluids when able to obtain IV site, while NPO B12 <400 with neuropsychiatric symptoms. Give 1000 mcg IM x1. Toxicology screen is positive for opiates patient in wrist restraints for self and staff protection. Give Zyprexa 5 mg IM x1. Obtain IV site and start IV PRN valium (2) UTI (urinary tract infection), bacterial: Code(s): N39.0 - Urinary tract infection, site not specified; A49.9 - Bacterial infection, unspecified Status: Acute Assessment and Plan: UTI versus asymptomatic bacteruria. Unable to assess due to mental status. UA 4+ bacteria, 1+ leukocytes, 21-30 WBC and rare epi cells Continue Rocephin, started 07/06/22 (3) Polypharmacy: Code(s): Z79.899 - Other long term acute care registered nurse (current) drug therapy Status: Chronic Assessment and Plan: Patient taking gabapentin, clonazepam, [place], Paxil and trazadone on medication list. Hold non-essential medications. (4) Hypothyroidism: Qualifiers: Hypothyroidism type: postablative Qualified Code(s): E89.0 - Postprocedural hypothyroidism Code(s): E03.9 - Hypothyroidism, unspecified Status: Chronic Assessment and Plan: Check thyroid panel. Continue thyroid replacement. (5) Hyperlipidemia: Qualifiers: Hyperlipidemia type: mixed hyperlipidemia Qualified Code(s): E78.2 - Mixed hyperlipidemia Code(s): E78.5 - Hyperlipidemia, unspecified Status: Chronic Assessment and Plan: Resume statin when mental status improved and able to take PO. (6) Depression: Qualifiers: Depression Type: unspecified Qualified Code(s): F32.A - Depression, unspecified Code(s): F32.A - Depression, unspecified Status: Chronic Assessment and Plan: With anxiety. Hold Paxil and Klonopin. Resume paxil when mental status improves due to risk for withdrawal symptoms. Plan Code status: Full code Disposition: Observation likely home in 1-3 days Time Spent With Patient Time with patient: 15 - 25 minutes Subjective Date/time seen: 07/07/22 10:47 Interval history: The patient was found writhing in bed and moaning. She is not answering questions. and is uncooperative with physical exam. Nursing reports the patient was batting away staff during assessment. She does open eyes to command but is not verbalizing. Review of Systems Review of Systems: ROS unobtainable: Yes unobtainable due to mental status Exam Narrative: General: Well-developed adult female restless, lying in bed. Mental Status/Psych: Awake. Unable to assess orientation. Not verbalizing or following most comma
[2022-07-07] MEDS: diazePAM INJ (*CRX) 10 MG/2 ML SYRINGE 5 MG IM (11:17)
[2022-07-07 13:43] VITALS: BP 122/68; PULSE 106; RESP 22; TEMP 36.1; O2SAT 95
[2022-07-07] MEDS: diazePAM INJ (*CRX) 10 MG/2 ML SYRINGE IM (14:38)
[2022-07-07] MEDS: OLANZapine 10 MG INJ VIAL 5 MG IM (17:24)
[2022-07-07] MEDS: fentaNYL (*CRX) 12 MCG PATCH TRANSDERM (20:24)
[2022-07-07 21:53] VITALS: BP 144/82; PULSE 96; RESP 24; TEMP 36.8; O2SAT 92
[2022-07-07 23:58] VITALS: O2SAT 94
[2022-07-08] MEDS: diphenhydrAMINE HCl INJ 50 MG/ML VIAL IM (01:30)
[2022-07-08] MEDS: HALOPERIDOL LACTATE 5 MG/ML VIAL IM (01:30)
[2022-07-08 06:00] VITALS: BP 171/96; PULSE 58; RESP 24; TEMP 36.8; O2SAT 91
[2022-07-08 06:29] LABS: Basophils Percent Auto 0.3 % (0.2-1.2); Eosinophils Percent Auto 0.1 % (0-4.4); Hematocrit 39.3 % (37.0-47.0); Hemoglobin 13.4 g/dL (12.0-15.0); Immature Granulocyte Absolute 0.06 K/mm3 (0.00-0.031); Immature Granulocyte Percent A 0.4 % (0-0.5); Lymphocytes Absolute Auto 1.39 K/mm3 (0.9-3.2); Lymphocytes Percent Auto 9.2 % (18.3-44.2); Mean Corpuscular HGB Conc 34.1 g/dl (32-36); Mean Corpuscular Hemoglobin 31.6 pg (26-34); Mean Corpuscular Volume 92.7 fl (80-100); Mean Platelet Volume 9.3 fl (7.4-10.4); Monocytes Absolute Auto 1.8 K/mm3 (0.1-0.6); Neutrophils Absolute Auto 11.8 K/mm3 (1.3-6.7); Platelet Count Result 310 k/mm3 (150-375); Red Blood Count 4.24 M/mm3 (4.2-5.4); Red Cell Distribution Width 12.7 % (11.5-14.5); White Blood Count 15.2 K/mm3 (4.5-10.0)
[2022-07-08 06:44] LABS: Alanine Aminotransferase 48 U/L (6-35); Albumin Level 4.8 g/dL (3.5-5.1); Alkaline Phosphatase 86 U/L (38-126); Anion Gap 12 mmol/L (8-16); Aspartate Amino Transferase 162 U/L (14-36); Bilirubin,Total 0.9 mg/dL (0.2-1.3); Blood Urea Nitrogen 17 mg/dL (7-17); Calcium 8.5 mg/dL (8.4-10.2); Carbon Dioxide 23 mmol/L (22-30); Chloride 111 mmol/L (98-107); Estimated CRCL calculation 68 ml/min; Estimated Glomerular Filt Rate > 60; Glucose 130 mg/dL (65-110); Potassium 3.4 mmol/L (3.4-5.0); Sodium 146 mmol/L (137-145)
[2022-07-08] MEDS: LIDOCAINE 5% PATCH 1 PATCH TRANSDERM (08:28)
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
[2022-07-08] MEDS: SODIUM CHLORIDE 0.9% IV 1,000 ML 125 ML IV CONT (10:16)
[2022-07-08] MEDS: TOLNAFTATE 1% POWDER 45 GM BTL 1 APPLIC TOPICAL ×2 (10:25→21:20)
[2022-07-08 12:00] VITALS: PULSE 120
[2022-07-08 14:00] VITALS: BP 176/95; PULSE 100; RESP 22; TEMP 36.2; O2SAT 96
[2022-07-08] MEDS: PANTOPRAZOLE 40 MG TABLET PO (14:16)
[2022-07-08] MEDS: LIOTHYRONINE SODIUM 25 MCG TABLET PO ×2 (14:16→16:55)
[2022-07-08 16:00] VITALS: PULSE 110
[2022-07-08] MEDS: diazePAM INJ (*CRX) 10 MG/2 ML SYRINGE 5 MG IV PUSH (16:54)
[2022-07-08] MEDS: KCL 20 MEQ/D5/0.45% SOD CHL 1,000 ML 70 ML IV CONT (18:14)
[2022-07-08 20:00] VITALS: PULSE 114
[2022-07-08] MEDS: traZODone HCL 50 MG TABLET PO (21:20)
[2022-07-08 22:00] VITALS: PULSE 108; RESP 24; TEMP 36.5; O2SAT 94
[2022-07-09] VITALS (9 sets, daily range): BP systolic 113–161; BP diastolic 49–94; PULSE 69–116; RESP 16–20; TEMP 36.4–36.8; O2SAT 96–99
[2022-07-09 04:36] LABS: Triiodothyronine T3 Free 4.1 pg/mL (2.3-4.2)
[2022-07-09 07:51] LABS: Basophils Percent Auto 0.3 % (0.2-1.2); Eosinophils Percent Auto 0.1 % (0-4.4); Hematocrit 36.9 % (37.0-47.0); Hemoglobin 12.4 g/dL (12.0-15.0); Immature Granulocyte Percent A 0.7 % (0-0.5); Lymphocytes Absolute Auto 1.92 K/mm3 (0.9-3.2); Lymphocytes Percent Auto 13.8 % (18.3-44.2); Mean Corpuscular HGB Conc 33.6 g/dl (32-36); Mean Corpuscular Hemoglobin 31.6 pg (26-34); Mean Corpuscular Volume 94.1 fl (80-100); Mean Platelet Volume 9.6 fl (7.4-10.4); Monocytes Absolute Auto 1.8 K/mm3 (0.1-0.6); Monocytes Percent Auto 13.2 % (2.6-8.5); Neutrophils Absolute Auto 10.1 K/mm3 (1.3-6.7); Neutrophils Percent Auto 71.9 % (45.5-73.1); Platelet Count Result 249 k/mm3 (150-375); Red Blood Count 3.92 M/mm3 (4.2-5.4); Red Cell Distribution Width 12.8 % (11.5-14.5)
[2022-07-09 08:00] LABS: Alanine Aminotransferase 109 U/L (6-35); Albumin Level 4.3 g/dL (3.5-5.1); Alkaline Phosphatase 75 U/L (38-126); Anion Gap 9 mmol/L (8-16); Aspartate Amino Transferase 436 U/L (14-36); Bilirubin,Total 0.8 mg/dL (0.2-1.3); Blood Urea Nitrogen 24 mg/dL (7-17); Carbon Dioxide 24 mmol/L (22-30); Chloride 113 mmol/L (98-107); Estimated CRCL calculation 79 ml/min; Estimated Glomerular Filt Rate > 60; Glucose 131 mg/dL (65-110); Potassium 3.2 mmol/L (3.4-5.0); Sodium 146 mmol/L (137-145)
[2022-07-09 09:01] LABS: Creatine Kinase > 16000 U/L (30-135)
[2022-07-09] MEDS: ENOXAPARIN 40 MG/0.4 ML SYRINGE SUB-Q (09:02)
[2022-07-09] MEDS: KCL 20 MEQ/D5/0.45% SOD CHL 1,000 ML 70 ML IV CONT ×2 (09:02→20:36)
[2022-07-09] MEDS: PANTOPRAZOLE 40 MG TABLET PO (09:03)
[2022-07-09] MEDS: LIOTHYRONINE SODIUM 25 MCG TABLET PO ×2 (09:03→16:45)
[2022-07-09] MEDS: PARoxetine 20 MG TABLET 40 MG PO (09:03)
[2022-07-09] MEDS: TOLNAFTATE 1% POWDER 45 GM BTL 1 APPLIC TOPICAL ×2 (09:03→20:36)
[2022-07-09] MEDS: LIDOCAINE 5% PATCH 1 PATCH TRANSDERM (11:25)
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
[2022-07-09 16:49] LABS: INR 1.1; Prothrombin Time 13.5 Seconds (11.1-14.7)
[2022-07-09] MEDS: IBUPROFEN 400 MG TABLET PO (18:49)
[2022-07-09 19:56] LABS: Creatine Kinase 12292 U/L (30-135)
[2022-07-09] MEDS: traZODone HCL 50 MG TABLET PO (20:36)
[2022-07-10] VITALS (7 sets, daily range): BP systolic 139–153; BP diastolic 65–77; PULSE 68–91; RESP 14–16; TEMP 36.2–36.6; O2SAT 96–99
[2022-07-10 05:01] LABS: Add Urine Microscopic? YES; Appearance Urine Clear (Clear); Bilirubin Urine Negative (Negative); Blood Urine 1+ (Negative); Color Urine Yellow (Yellow); Glucose Urine UA Negative (Negative); Ketones Urine Negative (Negative); Leukocyte Esterase Ur 1+ LEU/UL (NEGATIVE); Nitrate Urine Negative (Negative); Protein Urine 1+ mg/dL (Negative); Urobilinogen Urine 0.2 mg/dL (<2.0)
[2022-07-10 05:16] LABS: Mucus Urine Rare /lpf; Squamous Epithelial Cell Urine Few /hpf (Few); WBC Urine 31-50 /hpf (0-3)
[2022-07-10] MEDS: IBUPROFEN 600 MG TABLET PO (06:15)
[2022-07-10] MEDS: diazePAM INJ (*CRX) 10 MG/2 ML SYRINGE 5 MG IV PUSH ×2 (06:20→22:15)
[2022-07-10 06:37] LABS: Basophils Absolute Auto 0.1 K/mm3 (0.0-0.1); Basophils Percent Auto 0.7 % (0.2-1.2); Eosinophils Absolute Auto 0.3 K/mm3 (0-0.3); Eosinophils Percent Auto 2.5 % (0-4.4); Hematocrit 38.5 % (37.0-47.0); Hemoglobin 12.8 g/dL (12.0-15.0); Immature Granulocyte Absolute 0.06 K/mm3 (0.00-0.031); Immature Granulocyte Percent A 0.5 % (0-0.5); Lymphocytes Absolute Auto 2.47 K/mm3 (0.9-3.2); Lymphocytes Percent Auto 20.7 % (18.3-44.2); Mean Corpuscular HGB Conc 33.2 g/dl (32-36); Mean Corpuscular Hemoglobin 31.8 pg (26-34); Mean Corpuscular Volume 95.8 fl (80-100); Mean Platelet Volume 9.8 fl (7.4-10.4); Monocytes Absolute Auto 1.5 K/mm3 (0.1-0.6); Monocytes Percent Auto 12.4 % (2.6-8.5); Neutrophils Absolute Auto 7.6 K/mm3 (1.3-6.7); Neutrophils Percent Auto 63.2 % (45.5-73.1); Platelet Count Result 233 k/mm3 (150-375); Red Blood Count 4.02 M/mm3 (4.2-5.4); Red Cell Distribution Width 12.6 % (11.5-14.5); White Blood Count 11.9 K/mm3 (4.5-10.0)
[2022-07-10 06:53] LABS: Alanine Aminotransferase 111 U/L (6-35); Albumin Level 3.9 g/dL (3.5-5.1); Alkaline Phosphatase 74 U/L (38-126); Anion Gap 4 mmol/L (8-16); Aspartate Amino Transferase 265 U/L (14-36); Bilirubin,Total 0.8 mg/dL (0.2-1.3); Blood Urea Nitrogen 17 mg/dL (7-17); Calcium 7.2 mg/dL (8.4-10.2); Carbon Dioxide 25 mmol/L (22-30); Chloride 110 mmol/L (98-107); Estimated CRCL calculation 93 ml/min; Estimated Glomerular Filt Rate > 60; Glucose 120 mg/dL (65-110); Potassium 3.3 mmol/L (3.4-5.0); Sodium 139 mmol/L (137-145)
[2022-07-10 06:57] LABS: Prothrombin Time 13.2 Seconds (11.1-14.7)
[2022-07-10 06:58] LABS: Partial Thromboplastin Time 25.9 SECONDS (22.3-36.8)
[2022-07-10 07:18] LABS: Creatine Kinase 6327 U/L (30-135)
[2022-07-10] MEDS: ENOXAPARIN 40 MG/0.4 ML SYRINGE SUB-Q (09:16)
[2022-07-10] MEDS: LIDOCAINE 5% PATCH 1 PATCH TRANSDERM (09:16)
[2022-07-10] MEDS: LIOTHYRONINE SODIUM 25 MCG TABLET PO ×2 (09:17→17:02)
[2022-07-10] MEDS: PARoxetine 20 MG TABLET 40 MG PO (09:17)
[2022-07-10] MEDS: PANTOPRAZOLE 40 MG TABLET PO (09:18)
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
[2022-07-10] MEDS: POTASSIUM CHLORIDE 20 MEQ PACKET (FOR LIQUID) PO (09:54)
[2022-07-10] MEDS: KCL 20 MEQ/D5/0.45% SOD CHL 1,000 ML 70 ML IV CONT (11:41)
--- NOTE | 2022-07-10 12:21 | WPDNEURCNPN ---
Assessment and Plan Assessment and plan (1) Altered mental status: Code(s): R41.82 - Altered mental status, unspecified Status: Acute (2) Polypharmacy: Code(s): Z79.899 - Other snf (current) drug therapy Status: Chronic (3) UTI (urinary tract infection), bacterial: Code(s): N39.0 - Urinary tract infection, site not specified; A49.9 - Bacterial infection, unspecified Status: Acute Plan Ms. Hogan is a 61 year old female with a history of anxiety, depression, arthritis, thyroid cancer, hyperlipidemia who presented with altered mental status. Etiology seems to be a combination of polypharmacy and urinary tract infections. She seems to be at her baseline mental status. - No further work-up needed at this time - If mental status declines, can consider MRI brain w/wo contrast and routine EEG Consult date: 07/10/22 Time Seen: 12:21 Reason for consult: Altred mental status HPI: Brisa Hogan is a 61 year old female with a history of anxiety, depression, thyroid cancer, GERD, hyperlipidemia, and arthritis who presented due to altered mental status. She was brought in on 07/06/22 after being found by her altered and throwing things around the house. She has otherwise been fine earlier that day and at her baseline. She has no recollection of coming to the hospital and only remembers waking up in the hospital a few days ago. On presentation, there was concern for medication interaction and that patient may have taken her 's baclofen. She is also on a numbner of other psychiatric medications including Klonopin, gabapentin, trazodone, Paxil and reports taking narcotics and smoking marijuana as well. CT head was obtained which was unrmarkable. Labs were significant for slightly low B12, for which she was treated. TSH was within normal limit. UA was concerning for UTI so she was started on antibiotics. She was quite agitated during the admission so she did receive some PRN doses of Zyprexa, Haldol and Valium. Her mental status improved yesterday and does she seems at her baseline. She denies any complaints other than her shoulder hurting. When asked if she remembers anything about what brought her in, she said she thought she went crazy , but now she realizes that it was because of her UTI. She is asking to go home. Review of Systems Constitutional: Constitutional: Reports no additional constitutional complaints Eyes: Eyes: Reports no additional eye complaints ENT: Reports Normal hearing present Comments: hoarse voice Cardiovascular: Cardiovascular: Reports no additional cardiovascular complaints Respiratory: Respiratory: Reports no additional respiratory complaints Gastrointestinal: Gastrointestinal: Reports no additional gastrointestinal complaints Genitourinary: Comments: UTI, urine odor Musculoskeletal: Musculoskeletal: Reports arthralgias Comments: left shoulder pain, left hip pain Integumentary/Breasts: Skin/Breast: Reports system reviewed and no additional complaints, except as docu Neurologic: Reports as per HPI Psychiatric: Psychiatric: Reports anxiety and Reports depression PMFSH Past Medical History Medical History Anxiety Depression GERD (gastroesophageal reflux disease) Hyperlipidemia Osteoarthritis Thyroid cancer Surgical History Surgical History History of thyroidectomy Family History Family History Mother Diabetes mellitus Social History Social History Years smoked: 46 Smoking status: Current every day smoker Tobacco type: cigarettes Second hand tobacco smoke exposure: Yes Alcohol intake: never Substance use: never Gender identity (if verbalized by the patient): Female Spiritual care concerns: No Meds Home Medica
[2022-07-10] MEDS: traZODone HCL 50 MG TABLET PO (22:20)
[2022-07-10] MEDS: TOLNAFTATE 1% POWDER 45 GM BTL 1 APPLIC TOPICAL (22:20)
[2022-07-11] MEDS: IBUPROFEN 600 MG TABLET PO (01:19)
[2022-07-11 06:00] VITALS: BP 138/47; PULSE 82; RESP 18; TEMP 36.1; O2SAT 98
[2022-07-11 07:41] LABS: Hematocrit 36.7 % (37.0-47.0); Hemoglobin 12.2 g/dL (12.0-15.0); Mean Corpuscular HGB Conc 33.2 g/dl (32-36); Mean Corpuscular Hemoglobin 31.6 pg (26-34); Mean Corpuscular Volume 95.1 fl (80-100); Platelet Count Result 253 k/mm3 (150-375); Red Blood Count 3.86 M/mm3 (4.2-5.4); Red Cell Distribution Width 12.7 % (11.5-14.5); White Blood Count 8.6 K/mm3 (4.5-10.0)
[2022-07-11] MEDS: KCL 20 MEQ/D5/0.45% SOD CHL 1,000 ML 70 ML IV CONT (07:52)
[2022-07-11] MEDS: ENOXAPARIN 40 MG/0.4 ML SYRINGE SUB-Q (07:53)
[2022-07-11] MEDS: LIOTHYRONINE SODIUM 25 MCG TABLET PO ×2 (07:54→18:36)
[2022-07-11] MEDS: PARoxetine 20 MG TABLET 40 MG PO (07:54)
[2022-07-11] MEDS: TOLNAFTATE 1% POWDER 45 GM BTL 1 APPLIC TOPICAL ×2 (07:54→20:41)
[2022-07-11] MEDS: PANTOPRAZOLE 40 MG TABLET PO (07:54)
[2022-07-11 08:16] LABS: Alanine Aminotransferase 101 U/L (6-35); Albumin Level 3.8 g/dL (3.5-5.1); Alkaline Phosphatase 76 U/L (38-126); Anion Gap 5 mmol/L (8-16); Aspartate Amino Transferase 173 U/L (14-36); Bilirubin,Total 0.4 mg/dL (0.2-1.3); Blood Urea Nitrogen 14 mg/dL (7-17); Calcium 7.2 mg/dL (8.4-10.2); Carbon Dioxide 27 mmol/L (22-30); Chloride 110 mmol/L (98-107); Estimated CRCL calculation 79 ml/min; Estimated Glomerular Filt Rate > 60; Glucose 105 mg/dL (65-110); Potassium 3.5 mmol/L (3.4-5.0); Sodium 142 mmol/L (137-145)
[2022-07-11 08:19] LABS: Creatine Kinase 2878 U/L (30-135)
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
[2022-07-11 14:00] VITALS: BP 133/73; PULSE 80; RESP 18; TEMP 36.1; O2SAT 98
[2022-07-11] MEDS: traZODone HCL 50 MG TABLET PO (20:40)
[2022-07-11] MEDS: diazePAM INJ (*CRX) 10 MG/2 ML SYRINGE 5 MG IV PUSH (20:40)
[2022-07-11 22:00] VITALS: BP 127/59; PULSE 84; RESP 18; TEMP 36.4; O2SAT 99
[2022-07-12] MEDS: KCL 20 MEQ/D5/0.45% SOD CHL 1,000 ML 70 ML IV CONT (01:41)
[2022-07-12 06:00] VITALS: BP 158/66; PULSE 79; RESP 14; TEMP 36.3; O2SAT 98
[2022-07-12 06:59] LABS: Hematocrit 34.1 % (37.0-47.0); Hemoglobin 11.3 g/dL (12.0-15.0); Mean Corpuscular HGB Conc 33.1 g/dl (32-36); Mean Corpuscular Hemoglobin 31.6 pg (26-34); Mean Corpuscular Volume 95.3 fl (80-100); Platelet Count Result 222 k/mm3 (150-375); Red Blood Count 3.58 M/mm3 (4.2-5.4); Red Cell Distribution Width 12.5 % (11.5-14.5); White Blood Count 6.4 K/mm3 (4.5-10.0)
[2022-07-12 07:11] LABS: Alanine Aminotransferase 78 U/L (6-35); Albumin Level 3.4 g/dL (3.5-5.1); Alkaline Phosphatase 60 U/L (38-126); Anion Gap 3 mmol/L (8-16); Aspartate Amino Transferase 88 U/L (14-36); Bilirubin,Total 0.4 mg/dL (0.2-1.3); Blood Urea Nitrogen 13 mg/dL (7-17); Calcium 6.6 mg/dL (8.4-10.2); Carbon Dioxide 28 mmol/L (22-30); Chloride 108 mmol/L (98-107); Creatine Kinase 986 U/L (30-135); Estimated CRCL calculation 93 ml/min; Estimated Glomerular Filt Rate > 60; Glucose 97 mg/dL (65-110); Potassium 3.5 mmol/L (3.4-5.0); Sodium 139 mmol/L (137-145)
[2022-07-12] MEDS: PANTOPRAZOLE 40 MG TABLET PO (08:54)
[2022-07-12] MEDS: TOLNAFTATE 1% POWDER 45 GM BTL 1 APPLIC TOPICAL (08:54)
[2022-07-12] MEDS: LIOTHYRONINE SODIUM 25 MCG TABLET PO (08:54)
[2022-07-12] MEDS: PARoxetine 20 MG TABLET 40 MG PO (08:54)
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
== END 2022-07-12 12:10 | disposition home or self-care (01) | DRG 52 ==
LOC: ANHED 21:11 → ANH3MEDSUR 07-07 02:46
PROVIDERS: Nurse Practitioner Family; Admitting Provider Student in an Organized Health Care Education/Training Program; Emergency Provider Emergency Medicine; Visit Provider Internal Medicine Critical Care Medicine
DX: G92.8 Other toxic encephalopathy (principal); T50.915A Adverse effect of multiple unspecified drugs, medicaments and biological substances, initial encounter; N39.0 Urinary tract infection, site not specified; G93.41 Metabolic encephalopathy; M62.82 Rhabdomyolysis; F29 Unspecified psychosis not due to a substance or known physiological condition; B96.20 Unspecified Escherichia coli [E. coli] as the cause of diseases classified elsewhere; G62.9 Polyneuropathy, unspecified; Z20.822 Contact with and (suspected) exposure to COVID-19; E03.9 Hypothyroidism, unspecified; K21.9 Gastro-esophageal reflux disease without esophagitis; E78.5 Hyperlipidemia, unspecified; M19.90 Unspecified osteoarthritis, unspecified site; F41.8 Other specified anxiety disorders; G47.00 Insomnia, unspecified; F17.210 Nicotine dependence, cigarettes, uncomplicated; Z85.850 Personal history of malignant neoplasm of thyroid
CPT/HCPCS: 36415; 70450; 71045; 80053; 80307; 81001; 82550; 82607; 82746; 83605; 83735; 84145; 84439; 84443; 84481; 84484; 85025; 85027; 85610; 85730; 87040; 87077; 87086; 87088; 87186; 87636; 93005; 96361; 96365; 96372; 96374; 96375; 96376; 97161; 97165; 99285; A9270; G0378; G0379; J0131; J0696; J1200; J1630; J1650; J2060; J3360; J3420; J3480; J7030

== ENCOUNTER 2022-07-17 14:10 | Emergency (ER) | payer OTHER, SELFPAY ==
--- NOTE | ~2022-07-17 | XR_ITS ---
EXAMINATION: XR hip LT 2V w AP pelvis INDICATION: Ground-level fall, left hip pain TECHNIQUE: AP view the pelvis and two views of the left hip are obtained. COMPARISON: 12/11/2020 FINDINGS: There is unchanged advanced osteoarthritis of the left hip. No fracture is identified. Ther e is moderate osteoarthritis of the right hip. The soft tissues are unremarkable. IMPRESSION: 1. Chronic advanced left hip osteoarthritis without acute findings. Reviewed, dictated and finalized at location B. ONAL CARE ATTENDANT
[2022-07-17 14:15] VITALS: BP 116/59; PULSE 99; RESP 18; TEMP 36.8; O2SAT 99
--- NOTE | 2022-07-17 14:33 | ED.GENADULT ---
HPI - General Adult General Chief complaint: Fall Stated complaint: left hip pain s/p glf Time Seen by Provider: 07/17/22 14:28 Source: patient Limitations: physical limitation History of Present Illness HPI narrative: Brisa Hogan is a y/o female who presents today after a same level mechanical fall. Patient reports she was using her walker and lost control with her left hand becasue of a current left rotator cuff injury and fell on to her knees more weight on the left knee which then caused her to fall all the way to the floor hurting her left hip. She denies LOC. Denies being on any blood thinners. Denies pain to her right hip/right knee or right leg. Also denies chest pain/shortness of breath. Related Data Home Medications Medication Instructions Recorded Confirmed atorvastatin 40 mg tablet 40 mg PO HS 07/05/20 07/07/22 famotidine 20 mg tablet 20 mg PO BID PRN Acid Reflux 07/05/20 07/07/22 fluticasone propionate 50 1 spray intranasal DAILY 07/05/20 07/07/22 mcg/actuation nasal spray,suspension gabapentin 300 mg capsule 300 mg PO TID 07/05/20 07/07/22 pantoprazole 40 mg tablet,delayed 40 mg PO DAILY 07/05/20 07/07/22 release paroxetine HCl 40 mg tablet 40 mg PO DAILY 07/05/20 07/07/22 trazodone 50 mg tablet 50 mg PO DAILY 07/05/20 07/07/22 clonazepam 0.5 mg tablet 0.5 mg PO BID PRN Anxiety 12/11/20 07/07/22 cayvicxltjn-czizs-mmt-vit C-Mn 500 3 tablet PO DAILY 12/11/20 07/07/22 mg-400 mg-333 mg-3 mg tablet menthol 5 % topical gel (Biofreeze 1 ea topical QID PRN Pain 12/11/20 07/07/22 (menthol)) methyl salicylate-menthol topical 1 applic topical QID PRN Pain 12/11/20 07/07/22 ointment omega-3s 300 go-wwl-ihe-other 3 cap PO DAILY 12/11/20 07/07/22 ciqfg4z-svde oil 1,000 mg capsule ([place]-3 Fish Oil) vitamin B complex 1 cap PO DAILY 12/11/20 07/07/22 vitamin E 200 unit capsule 200 unit PO TID 12/11/20 07/07/22 liothyronine 25 mcg tablet 25 mcg PO BID 07/07/22 07/07/22 Allergies Allergy/AdvReac Type Severity Reaction Status Date / Time No Known Allergies Allergy Mild Verified 07/07/22 03:27 Review of Systems Review of Systems: CONSTITUTIONAL: Denies fever, chills, or sweats. EYES: Denies visual changes, redness, or discharge. ENT: Denies rhinorrhea, congestion, sore throat, or otalgia. CARDIOVASCULAR: Denies chest pain, palpitations, or edema. RESPIRATORY: Denies cough or dyspnea. GASTROINTESTINAL: Denies abdominal pain, nausea, vomiting, or diarrhea. GENITOURINARY: Denies dysuria or hematuria. SKIN: Denies rash or itching. MUSCULOSKELETAL: Denies back pain, reports pain to right hip/pelvis. NEUROLOGIC: Denies headache, numbness, dizziness, or weakness. PSYCHIATRIC: Denies anxiety or depression. [facility] Past Medical History Medical History Anxiety Depression GERD (gastroesophageal reflux disease) Hyperlipidemia Osteoarthritis Thyroid cancer Surgical History Surgical History History of thyroidectomy Family History Family History Mother Diabetes mellitus Social History Social History Years smoked: 46 Smoking status: Current every day smoker Tobacco type: cigarettes Second hand tobacco smoke exposure: Yes Alcohol intake: never Substance use: never Gender identity (if verbalized by the patient): Female Spiritual care concerns: No Exam Narrative: GENERAL: Well-appearing, well-nourished, and in no acute distress. HEAD: Normocephalic, atraumatic. EYES: PERRLA and EOMI. ENT: Nares clear, no rhinorrhea or epistaxis. Mucous membranes moist. Oropharynx without tonsillar hypertrophy exudate or other lesions. NECK: Supple. No adenopathy or masses. No carotid bruits or JVD CHEST: Clear to auscultation. No respiratory distress. No wheezes rales or rhonchi HEART: R
[2022-07-17 15:00] VITALS: BP 116/68; PULSE 78; RESP 16; TEMP 36.8; O2SAT 98
== END 2022-07-17 15:53 | disposition home or self-care (01) ==
PROVIDERS: Emergency Provider Nurse Practitioner Family
DX: S79.912A Unspecified injury of left hip, initial encounter (principal); M16.12 Unilateral primary osteoarthritis, left hip; E78.5 Hyperlipidemia, unspecified; K21.9 Gastro-esophageal reflux disease without esophagitis; F41.9 Anxiety disorder, unspecified; F32.A Depression, unspecified; E89.0 Postprocedural hypothyroidism; Z85.850 Personal history of malignant neoplasm of thyroid; F17.210 Nicotine dependence, cigarettes, uncomplicated; W18.39XA Other fall on same level, initial encounter
CPT/HCPCS: 73502; 99283

== ENCOUNTER 2022-07-29 09:21 | Emergency (ER) | payer OTHER, SELFPAY ==
[2022-07-29] VITALS (23 sets, daily range): BP systolic 126–173; BP diastolic 69–123; PULSE 78–93; RESP 10–36; TEMP 36.6; O2SAT 95–100
--- NOTE | ~2022-07-29 | XR_ITS ---
Left Shoulder Technique: AP and scapular Y views were obtained. Clinical History: Pain Findings: No fracture or dislocation is seen. Osseous alignment is anatomic. The glenohumeral and acr omioclavicular joint spaces are preserved. Soft tissues are unremarkable. Impression: Unremarkable left shoulder radiographs. Reviewed, dictated and finalized at [facility]. RVISOR GROWER Impression: Unremarkable left shoulder radiographs.
--- NOTE | ~2022-07-29 | CT_ITS ---
Non-contrast Head CT History: Altered mental status COMPARISON: 07/06/2022 Technique: Axial non-contrast imaging of the brain was performed. Dose reduction technique was used on this scan by utilizing automated exposure control and iterative reconstruction technique. The dose -length product (DLP) was 529.67 mGy-cm. Findings: There is no evidence of intracranial hemorrhage, mass lesion, or acute infarct. Brain par enchyma appears normal. The ventricles and subarachnoid spaces are normal in size. The calvarium ap pears normal. The visualized paranasal sinuses and mastoid air cells are clear. Impression: No significant abnormality seen. Reviewed, dictated and finalized at location . RY GOODS MAKER Impression: No significant abnormality seen.
--- NOTE | 2022-07-29 09:30 | ECG_ITS ---
Measurements Intervals [place] Rate: 79 P: 60 VT: 130 QRS: 38 QRSD: 90 T: 41 QT: 404 QTc: 463 Interpretive Statements SINUS RHYTHM POSSIBLE LEFT ATRIAL ENLARGEMENT BASELINE ARTIFACT- I, II, III, AVR, AVL, AVF, V1 BORDERLINE ECG COMPARED TO ECG 07/06/2022 22:02:03 ST-T WAVE ABNORMALITY RESOLVED Electronically Signed On 07-29-2022 10:02:16 ENDODONTICS DENTIST by Lavon Amin D.O.
[2022-07-29 09:51] LABS: Basophils Percent Auto 0.3 % (0.2-1.2); Eosinophils Absolute Auto 0.2 K/mm3 (0-0.3); Eosinophils Percent Auto 1.5 % (0-4.4); Hematocrit 39.9 % (37.0-47.0); Hemoglobin 13.7 g/dL (12.0-15.0); Immature Granulocyte Absolute 0.05 K/mm3 (0.00-0.031); Immature Granulocyte Percent A 0.5 % (0-0.5); Lymphocytes Absolute Auto 2.03 K/mm3 (0.9-3.2); Lymphocytes Percent Auto 19.4 % (18.3-44.2); Mean Corpuscular HGB Conc 34.3 g/dl (32-36); Mean Corpuscular Hemoglobin 31.6 pg (26-34); Mean Corpuscular Volume 92.1 fl (80-100); Mean Platelet Volume 9.5 fl (7.4-10.4); Monocytes Absolute Auto 0.7 K/mm3 (0.1-0.6); Monocytes Percent Auto 6.6 % (2.6-8.5); Neutrophils Absolute Auto 7.5 K/mm3 (1.3-6.7); Neutrophils Percent Auto 71.7 % (45.5-73.1); Platelet Count Result 325 k/mm3 (150-375); Red Blood Count 4.33 M/mm3 (4.2-5.4); Red Cell Distribution Width 12.4 % (11.5-14.5); White Blood Count 10.5 K/mm3 (4.5-10.0)
[2022-07-29 10:00] LABS: Appearance Urine Clear (Clear); Bilirubin Urine Negative (Negative); Blood Urine Trace-lysed (Negative); Color Urine Yellow (Yellow); Glucose Urine UA Negative (Negative); Ketones Urine Negative (Negative); Leukocyte Esterase Ur 2+ LEU/UL (Negative); Nitrate Urine Negative (Negative); Protein Urine Negative (Negative); Specific Grav Ur 1.015 (1.001-1.035); Urobilinogen Urine 0.2 mg/dL (<2.0)
[2022-07-29 10:01] LABS: Alanine Aminotransferase 22 U/L (6-35); Albumin Level 4.3 g/dL (3.5-5.1); Alkaline Phosphatase 89 U/L (38-126); Anion Gap 8 mmol/L (8-16); Aspartate Amino Transferase 24 U/L (14-36); Bilirubin,Total 0.4 mg/dL (0.2-1.3); Blood Urea Nitrogen 10 mg/dL (7-17); Calcium 8.5 mg/dL (8.4-10.2); Carbon Dioxide 26 mmol/L (22-30); Chloride 104 mmol/L (98-107); Estimated CRCL calculation 77 ml/min; Estimated Glomerular Filt Rate > 60; Glucose 99 mg/dL (65-110); Potassium 3.8 mmol/L (3.4-5.0); Sodium 138 mmol/L (137-145)
[2022-07-29 10:03] LABS: Prothrombin Time 13.1 Seconds (11.1-14.7)
--- NOTE | 2022-07-29 10:04 | ED.AMS ---
HPI - Altered Mental Status General Chief Complaint: Altered Mental Status Stated Complaint: AMS Time Seen by Provider: 07/29/22 09:27 History of Present Illness HPI narrative: 61-year-old female presented to the emergency department for evaluation of chronic left shoulder pain. Patient reports that her stated she was acting bizarrely last night. Patient does admit to taking Vista that she buys on the street . Family states that the patient will often take a muscle relaxant and can have a similar response. Upon arrival to the emergency department patient states that she no longer feels weird or off. Patient is alert and appropriate at this time. Patient is tearful due to her left shoulder pain. Patient states that she does take the Vista and ibuprofen for this pain. Patient denies any recent falls or injuries. Patient states she is in the process of being scheduled for surgery on her left shoulder by an orthopedic surgeon at [facility]. Patient has been cleared by her primary care physician by her oncologist. Patient reports he does have a history of thyroid cancer. Patient states that she also did take a baclofen last night. Patient reports that she has previously taken the baclofen that is her 's and the patient was told that the baclofen was too strong for her after the patient had a similar state of confusion. Related Data Home Medications Medication Instructions Recorded Confirmed atorvastatin 40 mg tablet 40 mg PO HS 07/05/20 07/07/22 famotidine 20 mg tablet 20 mg PO BID PRN Acid Reflux 07/05/20 07/07/22 fluticasone propionate 50 1 spray intranasal DAILY 07/05/20 07/07/22 mcg/actuation nasal spray,suspension gabapentin 300 mg capsule 300 mg PO TID 07/05/20 07/07/22 pantoprazole 40 mg tablet,delayed 40 mg PO DAILY 07/05/20 07/07/22 release paroxetine HCl 40 mg tablet 40 mg PO DAILY 07/05/20 07/07/22 trazodone 50 mg tablet 50 mg PO DAILY 07/05/20 07/07/22 clonazepam 0.5 mg tablet 0.5 mg PO BID PRN Anxiety 12/11/20 07/07/22 czbjoksacpn-jlsxu-nlx-vit C-Mn 500 3 tablet PO DAILY 12/11/20 07/07/22 mg-400 mg-333 mg-3 mg tablet menthol 5 % topical gel (Biofreeze 1 ea topical QID PRN Pain 12/11/20 07/07/22 (menthol)) methyl salicylate-menthol topical 1 applic topical QID PRN Pain 12/11/20 07/07/22 ointment omega-3s 300 se-rlc-vmb-other 3 cap PO DAILY 12/11/20 07/07/22 hmcta4u-effx oil 1,000 mg capsule ([place]-3 Fish Oil) vitamin B complex 1 cap PO DAILY 12/11/20 07/07/22 vitamin E 200 unit capsule 200 unit PO TID 12/11/20 07/07/22 liothyronine 25 mcg tablet 25 mcg PO BID 07/07/22 07/07/22 Allergies Allergy/AdvReac Type Severity Reaction Status Date / Time No Known Allergies Allergy Mild Verified 07/29/22 09:32 Review of Systems Review of Systems: CONSTITUTIONAL: Denies fever, chills, or sweats. EYES: Denies visual changes, redness, or discharge. ENT: Denies rhinorrhea, congestion, sore throat, or otalgia. CARDIOVASCULAR: Denies chest pain, palpitations, or edema. RESPIRATORY: Denies cough or dyspnea. GASTROINTESTINAL: Denies abdominal pain, nausea, vomiting, or diarrhea. GENITOURINARY: Denies dysuria or hematuria. SKIN: Denies rash or itching. MUSCULOSKELETAL: See HPI NEUROLOGIC: See HPI PMFSH Past Medical History Medical History Anxiety Depression GERD (gastroesophageal reflux disease) Hyperlipidemia Osteoarthritis Thyroid cancer Surgical History Surgical History History of thyroidectomy Family History Family History Mother Diabetes mellitus Social History Social History Years smoked: 46 Smoking status: Current every day smoker Tobacco type: cigarettes Second hand tobacco smoke exposure: Yes Alcohol intake: never Substance use: never Gender identity
[2022-07-29 10:08] LABS: Bacteria Urine Trace /hpf; Mucus Urine Rare /lpf; Renal Epithelial Cells Urine Occasional /hpf (None Seen); Squamous Epithelial Cell Urine Many /hpf (Few)
[2022-07-29 10:10] LABS: Add Urine Microscopic? YES
[2022-07-29 10:16] LABS: Amphetamine Screen Urine Negative (Negative); Barbiturate Screen Urine Negative (Negative); Benzodiazepines Screen Urine Negative (Negative); Cannabinoid Screen Urine Negative (Negative); Cocaine Screen Urine Negative (Negative); Methadone Screen Urine Negative (Negative); Opiate Screen Urine Positive (Negative); Phencyclidine Screen Urine Negative (Negative)
[2022-07-29] MEDS: KETOROLAC 15 MG/ML VIAL (*BKC) IV PUSH (10:39)
== END 2022-07-29 12:44 | disposition home or self-care (01) ==
PROVIDERS: Emergency Provider Emergency Medicine
DX: M25.512 Pain in left shoulder (principal); T50.905A Adverse effect of unspecified drugs, medicaments and biological substances, initial encounter; F41.9 Anxiety disorder, unspecified; F32.9 Major depressive disorder, single episode, unspecified; K21.9 Gastro-esophageal reflux disease without esophagitis; M19.90 Unspecified osteoarthritis, unspecified site
CPT/HCPCS: 36415; 70450; 73030; 80053; 80307; 81001; 85025; 85610; 85730; 87086; 87088; 93005; 96365; 96375; 99284; A4565; J0131; J1885

== ENCOUNTER 2023-03-02 10:29 | Emergency (ER) | payer MEDICARE, MEDICAID, SELFPAY ==
--- NOTE | 2023-03-02 11:04 | PC.NURSE ---
pt LWBS, D/T WAIT TIME, STATED SHE WOULD GO TO URGENT CARE
== END 2023-03-02 11:25 | disposition left against medical advice (07) ==
LOC: ANHED 11:08
DX: Z53.21 Procedure and treatment not carried out due to patient leaving prior to being seen by health care provider (principal)
CPT/HCPCS: 99199

== ENCOUNTER 2024-07-14 06:29 | Emergency (ER) | payer MEDICARE, MEDICAID, SELFPAY ==
[2024-07-14] VITALS (23 sets, daily range): BP systolic 124–182; BP diastolic 69–158; PULSE 78–94; RESP 14–26; TEMP 36.6; O2SAT 96–100
--- NOTE | ~2024-07-14 | XR_ITS ---
EXAMINATION: XR chest 2V 07/14/2024 07:49 INDICATION: Shortness of breath and neck swelling. PROCEDURE: 2 view chest COMPARISON: Comparison to multiple prior studies sequentially, with oldest reviewed study dated 07/2020. FINDINGS: Heart size normal. No focal air space disease, pulmonary edema, pleural effusion or suspect ed pneumothorax.There are cervicothoracic fusion changes. IMPRESSION: 1: NO ACUTE CARDIOPULMONARY DISEASE. Reviewed, dictated and finalized at location B. [facility]
--- NOTE | ~2024-07-14 | CT_ITS ---
EXAMINATION: CT soft tissue neck w con DATE: 07/14/2024 07:52 INDICATION: Throat pain. TECHNIQUE: Computed tomography (CT) of the neck was performed with 75 mL Omnipaque-350 intravenous co ntrast. Automated exposure control and iterative reconstruction technique were employed. The dose-julisa gth product was 243.74 mGy-cm. COMPARISON: Neck CT 06/02/2021 FINDINGS: There is mild emphysema. A calcified right lung nodule is consistent with old granulomatous disease. There are surgical clips in the neck and in the expected area of the thyroid. There is muco otilia thickening involving the pharynx and larynx. There is fat stranding in the expected area of the t hyroid. There is no significant stenosis of the vertebral arteries. There is plaque in the proximal r ight internal carotid artery with 0% stenosis relative to normal distal artery lumen diameter. There are no pathologically enlarged lymph nodes. There is mucosal thickening in the paranasal sinuses. The re is severe cervical spondylosis. There are changes of posterior fusion procedure from C2 to T2 with instrumentation. 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 IMPRESSION: 1. Inflammation of the larynx and expected area of the thyroid with worsening from 06/02/21, which ma y be changes of radiation therapy. Reviewed, dictated and finalized at location [facility] IMPRESSION: 1. Inflammation of the larynx and expected area of the thyroid with worsening f rom 06/02/21, which may be changes of radiation therapy.
--- NOTE | 2024-07-14 06:42 | ECG_ITS ---
Test Date: 2024-07-14 06:34:37 Measurements Intervals [place] Rate: 85 P: 68 MS: 113 QRS: 53 QRSD: 90 T: 51 QT: 360 QTc: 430 Interpretive Statements SINUS RHYTHM WITH SHORT MS INTERVAL POSSIBLE LEFT ATRIAL ENLARGEMENT [-0.1mV P-WAVE IN V1/V2] LEFT VENTRICULAR HYPERTROPHY AND ST-T CHANGE [VOLTAGE CRITERIA PLUS ST/T ABNORMALITY] No previous ECG available for comparison Electronically Signed On 07-14-2024 16:56:38 DIESEL ENGINE FITTER by Marichuy Zapata M.D.
[2024-07-14 06:50] LABS: Basophils Percent Auto 0.3 % (0.2-1.2); Eosinophils Absolute Auto 0.1 K/mm3 (0-0.3); Eosinophils Percent Auto 1.5 % (0-4.4); Hematocrit 42.7 % (37.0-47.0); Hemoglobin 14.5 g/dL (12.0-15.0); Immature Granulocyte Absolute 0.03 K/mm3 (0.00-0.031); Immature Granulocyte Percent A 0.3 % (0-0.5); Lymphocytes Absolute Auto 0.89 K/mm3 (0.9-3.2); Lymphocytes Percent Auto 9.3 % (18.3-44.2); Mean Corpuscular Volume 91.4 fl (80-100); Mean Platelet Volume 9.9 fl (7.4-10.4); Monocytes Absolute Auto 0.7 K/mm3 (0.1-0.6); Monocytes Percent Auto 7.7 % (2.6-8.5); Neutrophils Absolute Auto 7.8 K/mm3 (1.3-6.7); Neutrophils Percent Auto 80.9 % (45.5-73.1); Platelet Count Result 286 k/mm3 (150-375); Red Blood Count 4.67 M/mm3 (4.2-5.4); Red Cell Distribution Width 13.2 % (11.5-14.5); White Blood Count 9.6 K/mm3 (4.5-10.0)
[2024-07-14 07:02] LABS: Alanine Aminotransferase 14 U/L (6-35); Albumin Level 4.3 g/dL (3.5-5.1); Alkaline Phosphatase 94 U/L (38-126); Anion Gap 11 mmol/L (4-12); Aspartate Amino Transferase 21 U/L (14-36); Bilirubin,Total 0.6 mg/dL (0.2-1.3); Blood Urea Nitrogen 21 mg/dL (7-17); Carbon Dioxide 25 mmol/L (22-30); Chloride 100 mmol/L (98-107); Estimated CRCL calculation 74 ml/min; Estimated Glomerular Filt Rate > 60; Glucose 147 mg/dL (65-110); Potassium 3.8 mmol/L (3.4-5.0); Sodium 136 mmol/L (137-145)
[2024-07-14] MEDS: BELLADONNA ALK/PHENOB ELIX 10 ML, MAG HYDROX/ALUMINUM HYD/SIMETH 30 ML, LIDOCAINE 2% VI... PO (08:24)
[2024-07-14] MEDS: FAMOTIDINE 20 MG/2 ML VIAL IV PUSH (08:48)
[2024-07-14] MEDS: diphenhydrAMINE HCl INJ 50 MG/ML VIAL 25 MG IV PUSH (08:49)
[2024-07-14] MEDS: dexAMETHasone SOD PHOS INJ 10 MG/ML 1 ML VIAL IV PUSH (08:49)
--- NOTE | 2024-07-14 09:18 | ED.GENADULT ---
HPI - General Adult General Chief complaint: Shortness of Breath/Dyspnea Stated complaint: dyspnea Time Seen by Provider: 07/14/24 07:06 History of Present Illness HPI narrative: Patient is a 63-year-old female who presents ER with pain in her throat. Has history of thyroid cancer that was excised. She has been on Lenvima. She has had sore throat and hoarse voice and neck discomfort in the past. Her oncologist told her this is side effect and that she go on a drug holiday if need be. Patient has pain with swallowing but is able swallow. No difficulty breathing. No fevers or chills or sweats. No lip or tongue swelling. Related Data Home Medications ?Medication ?Instructions ?Recorded ?Confirmed ?Last Taken ?Type atorvastatin 40 mg tablet 40 mg PO HS 07/05/20 07/07/22 Unknown History famotidine 20 mg tablet 20 mg PO BID PRN Acid Reflux 07/05/20 07/07/22 Unknown History fluticasone propionate 50 1 spray intranasal DAILY 07/05/20 07/07/22 Unknown History mcg/actuation nasal spray,suspension gabapentin 300 mg capsule 300 mg PO TID 07/05/20 07/07/22 Unknown History pantoprazole 40 mg tablet,delayed 40 mg PO DAILY 07/05/20 07/07/22 Unknown History release paroxetine HCl 40 mg tablet 40 mg PO DAILY 07/05/20 07/07/22 Unknown History trazodone 50 mg tablet 50 mg PO DAILY 07/05/20 07/07/22 Unknown History clonazepam 0.5 mg tablet 0.5 mg PO BID PRN Anxiety 12/11/20 07/07/22 Unknown History booijdrfixk-ilgfm-rff-vit C-Mn 500 3 tablet PO DAILY 12/11/20 07/07/22 Unknown History mg-400 mg-333 mg-3 mg tablet menthol 5 % topical gel (Biofreeze 1 ea topical QID PRN Pain 12/11/20 07/07/22 Unknown History (menthol)) methyl salicylate-menthol topical 1 applic topical QID PRN Pain 12/11/20 07/07/22 Unknown History ointment omega-3s 300 ky-ejp-noy-other 3 cap PO DAILY 12/11/20 07/07/22 Unknown History xcatg0q-ooka oil 1,000 mg capsule ([place]-3 Fish Oil) vitamin B complex 1 cap PO DAILY 12/11/20 07/07/22 Unknown History vitamin E 200 unit capsule 200 unit PO TID 12/11/20 07/07/22 Unknown History liothyronine 25 mcg tablet 25 mcg PO BID 07/07/22 07/07/22 Unknown History Allergies Allergy/AdvReac Type Severity Reaction Status Date / Time No Known Allergies Allergy Mild Verified 07/29/22 09:32 Review of Systems Review of Systems: All systems reviewed & are unremarkable except as noted in HPI and below Constitutional: Constitutional: Reports no additional constitutional complaints ENT: Reports system reviewed and no additional complaints, except as documented Cardiovascular: Cardiovascular: Reports no additional cardiovascular complaints Respiratory: Respiratory: Reports no additional respiratory complaints [facility] Past Medical History Medical History Anxiety Depression GERD (gastroesophageal reflux disease) Hyperlipidemia Osteoarthritis Thyroid cancer Surgical History Surgical History History of thyroidectomy Family History Family History Mother Diabetes mellitus Social History Social History Years smoked: 46 Smoking status: Current every day smoker Tobacco type: cigarettes Second hand tobacco smoke exposure: Yes Alcohol intake: never Substance use: never Gender identity (if verbalized by the patient): Female Spiritual care concerns: No Exam Narrative: GENERAL: Well-appearing, well-nourished, and in no acute distress. HEAD: Normocephalic, atraumatic. ENT: Mucous membranes moist. Normal appearing posterior oropharynx. Tongue and lips normal. Tolerating oral secretions. NECK: Supple. CHEST: Clear to auscultation. No respiratory distress. No stridor HEART: Regular rate and rhythm. Normal peripheral pulses. EXTREMITIES: Normal range of motion. No edema. SKIN: Warm, dry, no rash. NEURO: Alert and oriented x3. PSYCH: Normal mood and affect. Course Course Emergency Course: 922: Spoke with Dr. Beckett. Recommend d/c medication at this time. Supportive care. Patient given dexamethasone, benadryl, famotidine in case this is an allergic reaction but Dr. Sujit reports this is a common side effect of the medication. Will obs for a couple hours. No stridor. 1243: Has pain with swallowing but tolerating fluids and secretions. NO respiratory distress. D/c Lenvima. F/u with oncology. Prednisone for home. Vital Signs Vital signs: Vital Signs Temperature 98 F 07/14/24 06:27 Pulse Rate 85 07/14/24 06:27 Respiratory Rate 15 07/14/24 06:27 Blood Pressure 155/84 H 07/14/24 06:27 Pulse Oximetry 98 07/14/24 06:27 Oxygen Delivery Room Air 07/14/24 06:27 Temperature 98 F 07/14/24 06:27 Pulse Rate 81 07/14/24 13:02 Respiratory Rate 17 07/14/24 13:02 Blood Pressure 154/73 H 07/14/24 13:02 Pulse Oximetry 97 07/14/24 13:02 Oxygen Delivery Room Air 07/14/24 06:39 Medical Decision Making Vital Signs Vital Signs: Vital Signs Temperature 98 F 07/14/24 06:27 Pulse Rate 85 07/14/24 06:27 Respiratory Rate 15 07/14/24 06:27 Blood Pressure 155/84 H 07/14/24 06:27 Pulse Oximetry 98 07/14/24 06:27 Oxygen Delivery Room Air 07/14/24 06:27 Temperature 98 F 07/14/24 06:27 Pulse Rate 81 07/14/24 13:02 Respiratory Rate 17 07/14/24 13:02 Blood Pressure 154/73 H 07/14/24 13:02 Pulse Oximetry 97 07/14/24 13:02 Oxygen Delivery Room Air 07/14/24 06:39 Lab Data 07/14/24 06:43 07/14/24 06:43 Labs: Lab Results 07/14/24 Range/Units 06:43 WBC 9.6 (4.5-10.0) K/mm3 RBC 4.67 (4.2-5.4) M/mm3 Hgb 14.5 (12.0-15.0) g/dL Hct 42.7 (37.0-47.0) % MCV 91.4 (80-100) fl MCH 31.0 (26-34) pg MCHC 34.0 (32-36) g/dl RDW 13.2 (11.5-14.5) % Plt Count 286 (150-375) k/mm3 MPV 9.9 (7.4-10.4) fl Immature Gran % (Auto) 0.3 (0-0.5) % Neut % (Auto) 80.9 H (45.5-73.1) % Lymph % (Auto) 9.3 L (18.3-44.2) % [place] % (Auto) 7.7 (2.6-8.5) % Eos % (Auto) 1.5 (0-4.4) % Baso % (Auto) 0.3 (0.2-1.2) % Lymph # (Auto) 0.89 L (0.9-3.2) K/mm3 [place] # (Auto) 0.7 H (0.1-0.6) K/mm3 Eos # (Auto) 0.1 (0-0.3) K/mm3 Baso # (Auto) 0.0 (0.0-0.1) K/mm3 Abs Immat Gran (auto) 0.03 (0.00-0.031) K/mm3 Absolute Neuts (auto) 7.8 H (1.3-6.7) K/mm3 Absolute Nucleated RBC 0.000 (0.0-0.012) K/mm3 Nucleated RBC % 0.0 (0.0-0.2) % Sodium 136 L (137-145) mmol/L Potassium 3.8 (3.4-5.0) mmol/L Chloride 100 (98-107) mmol/L Carbon Dioxide 25 (22-30) mmol/L Anion Gap 11 (4-12) mmol/L BUN 21 H D (7-17) mg/dL Creatinine 0.49 L (0.7-1.0) mg/dL Estim Creat Clear Calc 74 ml/min Estimated GFR > 60 (59 - ) Glucose 147 H (65-110) mg/dL Calcium 9.0 (8.4-10.2) mg/dL Total Bilirubin 0.6 (0.2-1.3) mg/dL AST 21 (14-36) U/L ALT 14 (6-35) U/L Alkaline Phosphatase 94 (38-126) U/L Total Protein 8.0 (6.3-8.2) g/dL Albumin 4.3 (3.5-5.1) g/dL Imaging Data Radiologist's impression: ITS Impressions Chest X-Ray 07/14/24 07:53 IMPRESSION: 1: NO ACUTE CARDIOPULMONARY DISEASE. Soft Tissue Neck CT 07/14/24 07:55 IMPRESSION: 1. Inflammation of the larynx and expected area of the thyroid with worsening from 06/02/21, which may be changes of radiation therapy. Discharge Plan Discharge Clinical Impression: Pharyngeal inflammation, Side effect of drug Patient Disposition: Home, Self-Care Condition: Stable Additional Instructions: You are experiencing a side effect of your Lynvima Discontinue this medication. Take prednisone over the next 4 days. Return to the ER if he cannot breathe. Follow-up with your cancer doctor for further treatment. Patient Language: Hong Konger Prescriptions: New prednisone 5 mg/5 mL solution 40 mg PO DAILY 4 Days Qty: 160 0RF No Action atorvastatin 40 mg tablet 40 mg PO HS trazodone 50 mg tablet 50 mg PO DAILY famotidine 20 mg tablet 20 mg PO BID PRN (Reason: Acid Reflux) pantoprazole 40 mg tablet,delayed release (DR/EC) 40 mg PO DAILY gabapentin 300 mg capsule 300 mg PO TID paroxetine HCl 40 mg tablet 40 mg PO DAILY fluticasone propionate 50 mcg/actuation spray,suspension 1 spray INTRANASAL DAILY Rx Instructions: each nare liothyronine 25 mcg tablet 25 mcg PO BID cefdinir 300 mg capsule 300 mg PO Q12H Qty: 6 0RF naproxen 500 mg tablet 500 mg PO BID PRN (Reason: pain) Qty: 14 0RF lidocaine 5 % adhesive patch,medicated 2 patch topical DAILY Qty: 30 0RF Rx Instructions: leave on most painful area for up to 12 hrs cyclobenzaprine 5 mg tablet 5 mg PO TID PRN (Reason: muscle spasm) Qty: 20 0RF clonazepam 0.5 mg tablet 0.5 mg PO BID PRN (Reason: Anxiety) methyl salicylate-menthol Ointment 1 applic TOPICAL QID PRN (Reason: Pain) Rx Instructions: Apply to joints as needed for pain relief Biofreeze (menthol) 5 % Gel 1 ea TOPICAL QID PRN (Reason: Pain) Rx Instructions: Apply to arthritic joints as needed for pain relief vitamin E 200 unit Capsule 200 unit PO TID vitamin B complex Capsule 1 cap PO DAILY gyarghuuler-vtcbj-qzp-vit C-Mn 789-008-681-3 mg Tablet 3 tablet PO DAILY [place]-3 Fish Oil 300-1,000 mg Capsule 3 cap PO DAILY acetaminophen 500 mg Tablet 1,000 mg PO Q8H PRN (Reason: Pain) Qty: 0 0RF Follow-up/Referrals: Lavelle Ragsdale MD [Primary Care Provider] - 1 Week
--- NOTE | 2024-07-14 09:42 | PC.NURSE ---
Throat lozenges brought to bedside and offered to pt. Pt. states I don't do Chloraseptic.
--- NOTE | 2024-07-14 12:05 | PC.NURSE ---
pt throat still feels swollen
== END 2024-07-14 13:20 | disposition home or self-care (01) ==
PROVIDERS: Emergency Medicine; Emergency Provider Emergency Medicine; PCP Family Medicine
DX: J02.9 Acute pharyngitis, unspecified (principal); T45.1X5A Adverse effect of antineoplastic and immunosuppressive drugs, initial encounter; C73 Malignant neoplasm of thyroid gland; E89.0 Postprocedural hypothyroidism; E78.5 Hyperlipidemia, unspecified; K21.9 Gastro-esophageal reflux disease without esophagitis; M19.90 Unspecified osteoarthritis, unspecified site; F41.9 Anxiety disorder, unspecified; F32.A Depression, unspecified; F17.210 Nicotine dependence, cigarettes, uncomplicated; Z79.899 Other long term (current) drug therapy; R94.31 Abnormal electrocardiogram [ECG] [EKG]; I51.7 Cardiomegaly
CPT/HCPCS: 36415; 70491; 71046; 80053; 85025; 93005; 96374; 96375; 99284; A9270; J1100; J1200; Q9967

== ENCOUNTER 2024-07-16 08:44 | Inpatient (IN) | payer OTHER, MEDICAID, SELFPAY ==
[2024-07-16] VITALS (48 sets, daily range): BP systolic 96–144; BP diastolic 53–94; PULSE 89–110; RESP 15–35; TEMP 36.6–36.8; O2SAT 86–100; BMI 20.1
--- NOTE | ~2024-07-16 | XR_ITS ---
EXAMINATION: XR chest 1V portable DATE: 07/22/2024 10:45 INDICATION: Shortness of breath. TECHNIQUE: A single frontal view of the chest was obtained. COMPARISON: Chest 2 views 07/14/2024 FINDINGS: A calcified right lung nodule and calcified right hilar lymph nodes are consistent with old granulomatous disease. There are airspace opacities in the lower lung zones. There is a small left p leural effusion. No pneumothorax. The heart size is normal. There are changes of posterior fusion pro cedure in the cervicothoracic spine. There are surgical clips in the neck. IMPRESSION: 1. Airspace opacities in the lower lung zones, consistent with pneumonia versus mild pulmonary edema. 2. Small left pleural effusion. Reviewed, dictated and finalized at location A. CARRIER OPERATIONS INSPECTOR
--- NOTE | ~2024-07-16 | CT_ITS ---
EXAMINATION: CTA chest PE abdomen pel DATE: 07/22/2024 11:38 INDICATION: Shortness of breath. TECHNIQUE: Computed tomography angiography (CTA) of the chest was performed with 100 mL Omnipaque-350 intravenous contrast timed to evaluate the pulmonary arteries. Coronal maximum intensity projection 3D-reconstructions were created by the technologist. Computed tomography (CT) of the abdomen and pelv is was performed with intravenous contrast. Automated exposure control and iterative reconstruction t echnique were employed. The dose-length product was 370.79 mGy-cm. COMPARISON: Chest CT 07/05/2020, pelvis CT 12/11/2020 FINDINGS: CTA chest: There is mild emphysema. There are moderate-sized right and small left loculated pleural e ffusions. A calcified right lung nodule and calcified right hilar lymph nodes are consistent with old granulomatous disease. Pneumomediastinum is noted. There is edema in the mediastinum. The heart size is normal. There is a trace pericardial effusion. There is no pulmonary embolus. There is severe cer vical spondylosis. There are changes of posterior fusion procedure from the thoracic spine to the T2. There is a healing compression fracture of T1 with 1/[address] abdomen and pelvis: The liver demonstrates focal steatosis adjacent to the ligamentum teres. The g allbladder is distended and contains gallstones. Calcifications in the spleen are consistent with old granulomatous disease. The pancreas and adrenal glands are normal. There is cortical thinning of the kidneys. There is hypoenhancement in left kidney lower pole. There is a gastrostomy tube in expected position. There are no dilated loops of bowel. The appendix is not visualized. There are no patholog ically enlarged lymph nodes. There is no free intraperitoneal fluid. There is advanced left hip osteo arthrosis. IMPRESSION: 1. No pulmonary embolus. Sensitivity is moderately decreased by motion artifact. 2. Moderate-sized right and small left loculated pleural effusions. 3. Pneumomediastinum. 4. Cholelithiasis. Gallbladder distention may be secondary to fasting. Correlate with physical exam t o exclude acute cholecystitis. 5. Hypoenhancement in left kidney lower pole, consistent with infarct versus pyelonephritis. Reviewed, dictated and finalized at location A. IAL LIBRARIAN IMPRESSION: 1. No pulmonary embolus. Sensitivity is moderately decreased by motion artifact . 2. Moderate-sized right and small left loculated pleural effusions. 3. Pneumomediastinum. 4. Cholelithiasis. Gallbladder distention may be secondary to fasting. Correlat e with physical exam to exclude acute cholecystitis. 5. Hypoenhancement in left kidney lower pole, consistent with infarct versus py elonephritis.
--- NOTE | ~2024-07-16 | XR_ITS ---
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 RESULT: Lines, tubes, and devices: New endotracheal tube terminating 3.1 cm above the eneida. Partially visu alized cervical fusion hardware. Lungs and pleura: Mild graded opacity in the bilateral lower lungs. Mild bibasilar scar/atelectasis. Moderate right and mild left costophrenic angle blunting. Cardiomediastinal silhouette: Stable. Previously documented pneumomediastinum is not confidently vis ualized radiographically. Other: No acute osseous or upper abdominal finding. IMPRESSION: Endotracheal tube terminates 3.1 cm above the eneida. Moderate right and small left pleural effusions with bibasilar atelectasis. Infection is not excluded. Reviewed, dictated and finalized at location K. RGLASS MODEL MAKER
--- NOTE | ~2024-07-16 | XR_ITS ---
EXAMINATION: XR barium swallow modified DATE: 07/17/2024 11:23 INDICATION: Dysphagia. TECHNIQUE: The patient was given barium-containing material of multiple consistencies to swallow by t nicolette speech pathologist while I performed fluoroscopy. Fluoroscopy exposure time was 0.9 minutes. The n umber of fluoroscopy images saved to the PACS was 1. Dose-area product was 0.596 Gy-cm^2. FINDINGS: There is reduced laryngeal elevation, reduced tongue base retraction, and reduced pharyngeal squeeze. There is severe vallecular residue and pyriform sinus residue. There is laryngeal penetration and as piration. IMPRESSION: 1. Aspiration. 2. Please refer to the speech therapy report for recommendations. Reviewed, dictated and finalized at location A. NER AND SHACKLER
--- NOTE | 2024-07-16 09:40 | PC.NURSE ---
mabel in waiting room came to intake desk to say that this pt was struggling to breath. this RN brought pt in and checked vitals and listened to lungs. vital signs normal and no wheezes noted
[2024-07-16] MEDS: KETOROLAC 15 MG/ML VIAL (*BKC) IV PUSH ×2 (13:42→23:13)
[2024-07-16] MEDS: SODIUM CHLORIDE 0.9% IV 1,000 ML 999 ML IV CONT (13:42)
[2024-07-16] MEDS: diazePAM INJ (*CRX) 10 MG/2 ML SYRINGE 2.5 MG IV PUSH (13:45)
[2024-07-16 13:48] LABS: Basophils Percent Auto 0.2 % (0.2-1.2); Eosinophils Percent Auto 0.1 % (0-4.4); Hematocrit 43.2 % (37.0-47.0); Hemoglobin 14.4 g/dL (12.0-15.0); Immature Granulocyte Percent A 0.6 % (0-0.5); Lymphocytes Absolute Auto 0.71 K/mm3 (0.9-3.2); Lymphocytes Percent Auto 4.5 % (18.3-44.2); Mean Corpuscular HGB Conc 33.3 g/dl (32-36); Mean Corpuscular Hemoglobin 30.9 pg (26-34); Mean Corpuscular Volume 92.7 fl (80-100); Mean Platelet Volume 9.7 fl (7.4-10.4); Monocytes Absolute Auto 1.4 K/mm3 (0.1-0.6); Monocytes Percent Auto 8.7 % (2.6-8.5); Neutrophils Absolute Auto 13.4 K/mm3 (1.3-6.7); Neutrophils Percent Auto 85.9 % (45.5-73.1); Platelet Count Result 327 k/mm3 (150-375); Red Blood Count 4.66 M/mm3 (4.2-5.4); Red Cell Distribution Width 13.7 % (11.5-14.5); White Blood Count 15.6 K/mm3 (4.5-10.0)
[2024-07-16 14:02] LABS: Alanine Aminotransferase 12 U/L (6-35); Albumin Level 4.2 g/dL (3.5-5.1); Alkaline Phosphatase 94 U/L (38-126); Anion Gap 10 mmol/L (4-12); Aspartate Amino Transferase 18 U/L (14-36); Bilirubin,Total 0.7 mg/dL (0.2-1.3); Blood Urea Nitrogen 32 mg/dL (7-17); Calcium 8.9 mg/dL (8.4-10.2); Carbon Dioxide 26 mmol/L (22-30); Chloride 101 mmol/L (98-107); Estimated CRCL calculation 71 ml/min; Estimated Glomerular Filt Rate > 60; Glucose 102 mg/dL (65-110); Potassium 3.5 mmol/L (3.4-5.0); Sodium 137 mmol/L (137-145)
[2024-07-16 15:00] LABS: Influenza A QL RT-PCR Negative (Negative); Influenza B QL RT-PCR Negative (Negative); RSV RNA, RT-PCR Negative (Negative); SARS-CoV-2 RNA PCR Negative (Negative)
[2024-07-16 15:03] LABS: Strep Group A RT-PCR NOT DETECTED (Negative)
[2024-07-16 15:48] LABS: Add Urine Microscopic? YES; Appearance Urine Cloudy (Clear); Bacteria Urine 3+ /hpf; Bilirubin Urine Negative (Negative); Blood Urine Negative (Negative); Color Urine Yellow (Yellow); Glucose Urine UA Negative (Negative); Ketones Urine 2+ mg/dL (Negative); Leukocyte Esterase Ur 3+ LEU/UL (Negative); Nitrate Urine Negative (Negative); Protein Urine 1+ mg/dL (Negative); RBC Urine 0-2 /hpf (0-2); Specific Grav Ur 1.018 (1.001-1.035); Squamous Epithelial Cell Urine Moderate /hpf (Few); Urobilinogen Urine 0.2 mg/dL (<2.0); WBC Urine 51-100 /hpf (0-3); pH Urine 5.5 (5.0-9.0)
--- NOTE | 2024-07-16 15:53 | ED_ITS ---
HPI - General Adult General Chief complaint: Shortness of Breath/Dyspnea Stated complaint: difficultly breathing Time Seen by Provider: 07/16/24 13:01 History of Present Illness HPI narrative: Patient is a 63-year-old female who presents ER with sore throat. Was seen the other day for the same symptoms. His related to medication side effect for her thyroid cancer. Patient was unable to fill her steroid medication but will be available tomorrow. She reports she has presenting here because she is having diffuse body aches as well and that is atypical of her presentation of the day. She still has some discomfort with swelling and feels dehydrated. No fevers or chills. No chest pain. She has not had syncope. Related Data Home Medications ?Medication ?Instructions ?Recorded ?Confirmed ?Last Taken ?Type atorvastatin 40 mg tablet 40 mg PO HS 07/05/20 07/07/22 Unknown History famotidine 20 mg tablet 20 mg PO BID PRN Acid Reflux 07/05/20 07/07/22 Unknown History fluticasone propionate 50 1 spray intranasal DAILY 07/05/20 07/07/22 Unknown History mcg/actuation nasal spray,suspension gabapentin 300 mg capsule 300 mg PO TID 07/05/20 07/07/22 Unknown History pantoprazole 40 mg tablet,delayed 40 mg PO DAILY 07/05/20 07/07/22 Unknown History release paroxetine HCl 40 mg tablet 40 mg PO DAILY 07/05/20 07/07/22 Unknown History trazodone 50 mg tablet 50 mg PO DAILY 07/05/20 07/07/22 Unknown History clonazepam 0.5 mg tablet 0.5 mg PO BID PRN Anxiety 12/11/20 07/07/22 Unknown History ezrawyqltkz-qhkst-gll-vit C-Mn 500 3 tablet PO DAILY 12/11/20 07/07/22 Unknown History mg-400 mg-333 mg-3 mg tablet menthol 5 % topical gel (Biofreeze 1 ea topical QID PRN Pain 12/11/20 07/07/22 Unknown History (menthol)) methyl salicylate-menthol topical 1 applic topical QID PRN Pain 12/11/20 07/07/22 Unknown History ointment omega-3s 300 ny-cmr-tje-other 3 cap PO DAILY 12/11/20 07/07/22 Unknown History rsuqk9v-uxok oil 1,000 mg capsule ([place]-3 Fish Oil) vitamin B complex 1 cap PO DAILY 12/11/20 07/07/22 Unknown History vitamin E 200 unit capsule 200 unit PO TID 12/11/20 07/07/22 Unknown History liothyronine 25 mcg tablet 25 mcg PO BID 07/07/22 07/07/22 Unknown History Allergies Allergy/AdvReac Type Severity Reaction Status Date / Time No Known Allergies Allergy Mild Verified 07/16/24 13:34 Review of Systems 2 Review of Systems: All systems reviewed & are unremarkable except as noted in HPI and below Constitutional: Constitutional: Reports no additional constitutional complaints ENT: Reports dysphagia and Reports sore throat Cardiovascular: Cardiovascular: Reports no additional cardiovascular complaints Respiratory: Respiratory: Reports no additional respiratory complaints Musculoskeletal: Musculoskeletal: Reports myalgias, Denies arthralgias and Denies joint swelling PMFSH Past Medical History Medical History Anxiety Depression GERD (gastroesophageal reflux disease) Hyperlipidemia Osteoarthritis Thyroid cancer Surgical History Surgical History History of thyroidectomy Family History Family History Mother Diabetes mellitus Social History Social History Years smoked: 46 Smoking status: Current every day smoker Tobacco type: cigarettes Second hand tobacco smoke exposure: Yes Alcohol intake: never Substance use: never Gender identity (if verbalized by the patient): Female Spiritual care concerns: No Exam 2 Narrative: GENERAL: Well-appearing, well-nourished, and in no acute distress. HEAD: Normocephalic, atraumatic. EYES: PERRL and EOMI. ENT: Dry mucous membranes. No drooling. Normal appearing posterior oropharynx. No postnasal drip. Uvula midline. NECK: Supple with mild discomfort with palpation. CHEST: Clear to auscultation. No respiratory distress. HEART: Tachycardic and regular. Normal peripheral pulses. ABDOMEN: Soft, nontender, nondistended. EXTREMITIES: Normal range of motion. No edema. SKIN: Warm, dry, no rash. NEURO: Alert and oriented x3. PSYCH: Normal mood and affect. Course Course Emergency Course: Patient unable to swallow but is still tolerating oral secretions. Urinalysis with UTI which may explain white blood cell count and body aches. Leukocytosis may also be related to steroids given other day. Patient be admitted to hospitalist service and schedule steroids for swelling the back her throat. GI will be consulted to evaluate her difficulty swelling. Will also place a swallow study order. Vital Signs Vital signs: Vital Signs Temperature 98.1 F 07/16/24 08:49 Pulse Rate 103 H 07/16/24 08:49 Respiratory Rate 20 07/16/24 08:49 Blood Pressure 96/77 L 07/16/24 08:49 Pulse Oximetry 97 07/16/24 08:49 Temperature 98.3 F 07/16/24 13:36 Pulse Rate 100 07/16/24 16:58 Respiratory Rate 20 07/16/24 16:58 Blood Pressure 125/75 07/16/24 16:58 Pulse Oximetry 100 07/16/24 16:58 Oxygen Delivery Room Air 07/16/24 13:36 Medical Decision Making Vital Signs Vital Signs: Vital Signs Temperature 98.1 F 07/16/24 08:49 Pulse Rate 103 H 07/16/24 08:49 Respiratory Rate 20 07/16/24 08:49 Blood Pressure 96/77 L 07/16/24 08:49 Pulse Oximetry 97 07/16/24 08:49 Temperature 98.3 F 07/16/24 13:36 Pulse Rate 100 07/16/24 16:58 Respiratory Rate 20 07/16/24 16:58 Blood Pressure 125/75 07/16/24 16:58 Pulse Oximetry 100 07/16/24 16:58 Oxygen Delivery Room Air 07/16/24 13:36 Lab Data 07/16/24 13:43 07/16/24 13:43 Labs: Lab Results 07/16/24 07/16/24 07/16/24 Range/Units 13:43 14:18 15:35 WBC 15.6 H (4.5-10.0) K/mm3 RBC 4.66 (4.2-5.4) M/mm3 Hgb 14.4 (12.0-15.0) g/dL Hct 43.2 (37.0-47.0) % MCV 92.7 (80-100) fl MCH 30.9 (26-34) pg MCHC 33.3 (32-36) g/dl RDW 13.7 (11.5-14.5) % Plt Count 327 (150-375) k/mm3 MPV 9.7 (7.4-10.4) fl Immature Gran % (Auto) 0.6 H (0-0.5) % Neut % (Auto) 85.9 H (45.5-73.1) % Lymph % (Auto) 4.5 L (18.3-44.2) % [place] % (Auto) 8.7 H (2.6-8.5) % Eos % (Auto) 0.1 (0-4.4) % Baso % (Auto) 0.2 (0.2-1.2) % Lymph # (Auto) 0.71 L (0.9-3.2) K/mm3 [place] # (Auto) 1.4 H (0.1-0.6) K/mm3 Eos # (Auto) 0.0 (0-0.3) K/mm3 Baso # (Auto) 0.0 (0.0-0.1) K/mm3 Abs Immat Gran (auto) 0.10 H (0.00-0.031) K/mm3 Absolute Neuts (auto) 13.4 H (1.3-6.7) K/mm3 Absolute Nucleated RBC 0.000 (0.0-0.012) K/mm3 Nucleated RBC % 0.0 (0.0-0.2) % Sodium 137 (137-145) mmol/L Potassium 3.5 (3.4-5.0) mmol/L Chloride 101 (98-107) mmol/L Carbon Dioxide 26 (22-30) mmol/L Anion Gap 10 (4-12) mmol/L BUN 32 H D (7-17) mg/dL Creatinine 0.51 L (0.7-1.0) mg/dL Estim Creat Clear Calc 71 ml/min Estimated GFR > 60 (59 - ) Glucose 102 (65-110) mg/dL Calcium 8.9 (8.4-10.2) mg/dL Total Bilirubin 0.7 (0.2-1.3) mg/dL AST 18 (14-36) U/L ALT 12 (6-35) U/L Alkaline Phosphatase 94 (38-126) U/L Total Protein 8.0 (6.3-8.2) g/dL Albumin 4.2 (3.5-5.1) g/dL Urine Color Yellow (Yellow) Urine Appearance Cloudy H (Clear) Urine pH 5.5 (5.0-9.0) Ur Specific [place] 1.018 (1.001-1.035) Urine Protein 1+ H (Negative) mg/dL Urine Glucose (UA) Negative (Negative) mg/dL Urine Ketones 2+ H (Negative) mg/dL Ur Blood (Man) Negative (Negative) Urine Nitrate Negative (Negative) Urine Bilirubin Negative (Negative) Urine Urobilinogen 0.2 (<2.0) mg/dL Leukocyte Esterase Rfl 3+ H (Negative) ARNOLD/UL Urine RBC 0-2 (0-2) /hpf Urine WBC 51-100 H (0-3) /hpf Ur Squamous Epith Cells Moderate (Few) /hpf Urine Bacteria 3+ H /hpf Urine Casts 3-5 Influenza A (RT-PCR) Negative (Negative) Influenza B (RT-PCR) Negative (Negative) RSV (RT-PCR) Negative (Negative) SARS-CoV-2 RNA (RT-PCR) Negative (Negative) Group A Strep (PCR) Not detected (Negative) Discharge Plan Discharge Clinical Impression: Dysphagia, Acute UTI, Dehydration Patient Disposition: Still a Patient Condition: Stable Patient Language: Yi Prescriptions: No Action atorvastatin 40 mg tablet 40 mg PO HS trazodone 50 mg tablet 50 mg PO DAILY famotidine 20 mg tablet 20 mg PO BID PRN (Reason: Acid Reflux) pantoprazole 40 mg tablet,delayed release (DR/EC) 40 mg PO DAILY gabapentin 300 mg capsule 300 mg PO TID paroxetine HCl 40 mg tablet 40 mg PO DAILY fluticasone propionate 50 mcg/actuation spray,suspension 1 spray INTRANASAL DAILY Rx Instructions: each nare liothyronine 25 mcg tablet 25 mcg PO BID cefdinir 300 mg capsule 300 mg PO Q12H Qty: 6 0RF naproxen 500 mg tablet 500 mg PO BID PRN (Reason: pain) Qty: 14 0RF lidocaine 5 % adhesive patch,medicated 2 patch topical DAILY Qty: 30 0RF Rx Instructions: leave on most painful area for up to 12 hrs cyclobenzaprine 5 mg tablet 5 mg PO TID PRN (Reason: muscle spasm) Qty: 20 0RF clonazepam 0.5 mg tablet 0.5 mg PO BID PRN (Reason: Anxiety) methyl salicylate-menthol Ointment 1 applic TOPICAL QID PRN (Reason: Pain) Rx Instructions: Apply to joints as needed for pain relief Biofreeze (menthol) 5 % Gel 1 ea TOPICAL QID PRN (Reason: Pain) Rx Instructions: Apply to arthritic joints as needed for pain relief vitamin E 200 unit Capsule 200 unit PO TID vitamin B complex Capsule 1 cap PO DAILY jzonjbwlypm-sfmct-mfg-vit C-Mn 077-148-523-3 mg Tablet 3 tablet PO DAILY [place]-3 Fish Oil 300-1,000 mg Capsule 3 cap PO DAILY acetaminophen 500 mg Tablet 1,000 mg PO Q8H PRN (Reason: Pain) Qty: 0 0RF prednisone 5 mg/5 mL solution 40 mg PO DAILY 4 Days Qty: 160 0RF Follow-up/Referrals: PHYSICIAN NOT ON STAFF,NONSTAFF [Primary Care Provider] -
--- NOTE | 2024-07-16 16:00 | PC.NURSE ---
Pt. PO challenged by this RN MD Jiménez. Pt attempted to swallow water and then immediately started coughing and spit up water. MD Jiménez updated.
--- NOTE | 2024-07-16 17:35 | P.HP_ITS ---
H&P: HPI History of Present Illness Date/Time: 07/16/24 17:35 Chief Complaint: Throat pain, difficulties swallowing. Narrative: This is a 63-year-old female with history of thyroid cancer status post thyroidectomy and radiation currently on lenvatinib, anxiety, hyperlipidemia, gastroesophageal reflux disease, and arthritis who presented to the emergency department via private vehicle with complaints of a sore throat and difficulty swallowing. The patient provides the following history. A known side effect of lenvatinib is hoarseness and she was told by her oncologist to hold the drug for period of time if she begins having issues. Last Wednesday she started to have throat pain and hoarseness and she stopped taking the drug however her symptoms persisted. She was seen in the ED 2 days ago for her symptoms at which time a CT scan of the soft tissue of the neck showed inflammation of the larynx. She was given a prescription for prednisone and was told to follow-up with her doctor. Unfortunately she was unable to get the prescription filled (the pharmacy did not have liquid prednisone and she did not want to take a pill). She returns today with ongoing throat pain and reports of difficulty swallowing. She is unable to hold down even water as it comes up almost immediately. She is feeling weak and dehydrated and she goes on to say that there were talks previously about inserting a G-tube for supplementation as she has lost nearly 50 lb over the course of a few months due to poor oral intake. She denies fever, headache, sinus congestion, shortness of breath, stridor, chest pain, hematemesis, melena, hematochezia, diarrhea, and dysuria. Of note, she saw an ENT specialist last year for laryngoscopy and she was told that she has a lot of spit and that was the problem. However she goes on to say that her vocal cords were never visualized and she left the office, never to return. In the ED: She was afebrile on arrival with stable vital signs. Labs are significant for WBC count of 15.6, BUN 32, creatinine 0.50. Urinalysis was positive for 1+ protein, 2+ ketones, 3+ leukocyte esterase, 51 to 100 WBC, and 3+ bacteria with moderate squamous cells seen on microscopy. She tested negative for influenza, RSV, COVID, and group A strep. She was given methylprednisone 40 mg IV and ceftriaxone 1 g for possible urinary tract infection and she is being admitted in this setting for hydration and GI consultation for possible EGD and/or G-tube placement. Review of Systems Review of Systems: 12 systems were reviewed and are negativ e except for as per HPI. [facility] Past Medical History Medical History (Updated 07/16/24 @ 22:27 by Marianela Dubois PA-C) Gastroesophageal reflux disease Osteoarthritis Depression Hyperlipidemia Thyroid cancer Anxiety Surgical History Surgical History (Updated 07/16/24 @ 22:24 by Marianela Dubois PA-C) History of section History of thyroidectomy Family History Family History Mother Diabetes mellitus Social History Social History (Updated 07/16/24 @ 22:24 by Marianela Dubois PA-C) Social History: Surrogate medical decision maker: Rocio Jules, sibling. Code status: Full code. Years smoked: 46 Smoking status: Current every day smoker Tobacco type: cigarettes Second hand tobacco smoke exposure: Yes Alcohol intake: never Substance use: former Do You Feel Safe in your Home?: Yes Lack of Transportation: No Lack of Food: Never True Current Housing: I Have Housing Concerned About Future Housing: No Difficulty Paying Gas/Electric Bills: No Difficulty Paying for Meds: No Currently Unemployed: No Education: High School Diploma/GED Difficulty w/ Childcare or Family Care: No Spiritual care concerns: No Meds Home Medications and Allergies Home Medications ?Medication ?Instructions ?Recorded ?Confirmed ?Type atorvastatin 40 mg tablet 40 mg PO HS 07/05/20 07/16/24 History famotidine 20 mg tablet 20 mg PO BID PRN Acid Reflux 07/05/20 07/16/24 History fluticasone propionate 50 1 spray intranasal DAILY 07/05/20 07/16/24 History mcg/actuation nasal spray,suspension gabapentin 300 mg capsule 300 mg PO TID 07/05/20 07/16/24 History pantoprazole 40 mg tablet,delayed 40 mg PO DAILY 07/05/20 07/16/24 History release paroxetine HCl 40 mg tablet 40 mg PO DAILY 07/05/20 07/16/24 History trazodone 50 mg tablet 50 mg PO HS 07/05/20 07/16/24 History vitamin B complex 1 cap PO DAILY 12/11/20 07/16/24 History vitamin E 200 unit capsule 200 unit PO TID 12/11/20 07/16/24 History acetaminophen 500 mg tablet 1,000 mg (2 x 500 mg) PO Q8H PRN 12/15/20 07/16/24 Rx Pain #0 tabs cyclobenzaprine 5 mg tablet 5 mg PO TID PRN muscle spasm #20 07/17/22 07/16/24 Rx tabs hydroxyzine HCl 25 mg tablet 25 mg PO BID PRN anxiety 07/16/24 07/16/24 History ibuprofen 800 mg tablet 800 mg PO TID PRN pain 07/16/24 07/16/24 History levothyroxine 112 mcg tablet 112 mcg PO DAILY 07/16/24 07/16/24 History oxybutynin chloride 5 mg 5 mg PO DAILY 07/16/24 07/16/24 History tablet,extended release 24 hr Allergies Allergy/AdvReac Type Severity Reaction Status Date / Time No Known Allergies Allergy Mild Verified 07/16/24 13:34 Vital Signs Vital Signs - 24 hr 07/16/24 08:49 07/16/24 09:38 07/16/24 12:31 Temperature 98.1 F 98.2 F Pulse Rate 103 H 109 H 106 H Respiratory Rate 20 18 Blood Pressure 96/77 L 114/60 116/57 L Pulse Oximetry 97 97 97 Oxygen Delivery 07/16/24 13:36 07/16/24 13:36 07/16/24 13:36 Temperature 98.3 F Pulse Rate 108 H 110 H Respiratory Rate 18 Blood Pressure 119/94 H Pulse Oximetry 99 99 Oxygen Delivery Room Air Room Air 07/16/24 13:47 07/16/24 15:07 07/16/24 16:00 Temperature Pulse Rate 103 H 101 H 96 Respiratory Rate 20 16 16 Blood Pressure 125/84 124/72 134/68 Pulse Oximetry 99 98 98 Oxygen Delivery 07/16/24 16:58 Temperature Pulse Rate 100 Respiratory Rate 20 Blood Pressure 125/75 Pulse Oximetry 100 Oxygen Delivery Exam Narrative: General: Mildly ill-appearing female sitting up in bed. Weight: 49.9 kg. BMI: 20.1. HEENT: PERRL, EOMI. Sclera anicteric. Tacky mucous membranes. Voice is hoarse. Oropharynx is mildly erythematous without exudate. Neck: Supple. No lymphadenopathy or stridor. Respiratory: Lungs are clear to auscultation bilaterally. Cardiovascular: Regular rate and rhythm with S1-S2. Gastrointestinal: Abdomen is soft, flat, nontender, and nondistended with positive bowel sounds. Skin: Warm and dry. Extremities: No cyanosis, clubbing, or edema. Radial and pedal pulses intact. Neurological: Alert. Cranial nerves 2-12 are grossly intact. No gross focal deficits to casual conversation. Psychiatric: Pleasant and cooperative with normal mood and flat affect. H&P: Results Labs Labs: Short CBC 07/16/24 Range/Units 13:43 WBC 15.6 H (4.5-10.0) K/mm3 Hgb 14.4 (12.0-15.0) g/dL Hct 43.2 (37.0-47.0) % Plt Count 327 (150-375) k/mm3 BMP 07/16/24 13:43 Sodium 137 Potassium 3.5 Chloride 101 Carbon Dioxide 26 BUN 32 H D Creatinine 0.51 L Glucose 102 Calcium 8.9 Liver Function 07/16/24 Range/Units 13:43 Total Bilirubin 0.7 (0.2-1.3) mg/dL AST 18 (14-36) U/L ALT 12 (6-35) U/L Alkaline Phosphatase 94 (38-126) U/L Albumin 4.2 (3.5-5.1) g/dL Urine 07/16/24 Range/Units 15:35 Urine Color Yellow (Yellow) Urine Appearance Cloudy H (Clear) Urine pH 5.5 (5.0-9.0) Ur Specific [place] 1.018 (1.001-1.035) Urine Protein 1+ H (Negative) mg/dL Urine Glucose (UA) Negative (Negative) mg/dL Assessment and Plan Assessment and plan (1) Dysphagia: Code(s): R13.10 - Dysphagia, unspecified Status: Acute (2) Dehydration: Code(s): E86.0 - Dehydration Status: Acute (3) Laryngitis: Code(s): J04.0 - Acute laryngitis Status: Acute (4) Urinary tract infection: Code(s): N39.0 - Urinary tract infection, site not specified Status: Acute (5) Thyroid cancer: Code(s): C73 - Malignant neoplasm of thyroid gland Status: Acute Plan The patient presented to the emergency department for evaluation of throat pain and hoarseness as detailed in HPI. Labs, imaging, EKG, and all reports were personally reviewed. She was seen in the ED 2 days ago and had imaging which showed inflammation of the larynx for which she was prescribed prednisone however she was unable to get that filled as of yet. She has stopped taking her lenvatinib and states her symptoms usually improve by now but she continues to have pain and hoarseness. Her strep screen was negative. Repeat imaging was not done as she was not short of breath and no stridor was evident on exam. ED isai sician spoke with the on-call GI specialist regarding the dysphagia and she will be NPO after midnight for possible endoscopy tomorrow. It would be prudent for her to see ENT again for direct laryngoscopy however she is hesitant to return after her last visit. Continue scheduled steroids and ceftriaxone for possible urinary tract infection. She will be hydrated overnight. Findings and treatment plan were discussed with the patient. Questions were solicited and answered to satisfaction. The patient's medical management will be taken over by the hospitalist team in a.m. Quality VTE Prophylaxis VTE prophylaxis: mechanical ordered If No VTE Prophylaxis Answer both mechanical and pharmacologic: Reason no pharmacologic proph: medical contraindication (may need procedure tomorrow) The patient has been admitted under observation status. Hospitalist MIPS Advance Care Plan I have confirmed that the patient's Advanced Care Plan is present, code status is documented, or surrogate decision maker is listed in patient medical record.: Yes Medication Reconciliation I have utilized all available resources to obtain, update and review the patients current medications (includes all prescriptions, OTC, herbals, cannabis, and nutritional supplements).: Yes
[2024-07-16] MEDS: methylPREDNISolone SOD SUCC 40 MG VIAL IV PUSH ×2 (18:34→23:13)
[2024-07-16] MEDS: SODIUM CHLORIDE 0.9% IV 1,000 ML 125 ML IV CONT (19:37)
[2024-07-17] VITALS: BP 124/51; PULSE 86; RESP 20; TEMP 36.1; O2SAT 100
[2024-07-17] MEDS: SODIUM CHLORIDE 0.9% IV 1,000 ML 75 ML IV CONT (05:55)
[2024-07-17] MEDS: methylPREDNISolone SOD SUCC 40 MG VIAL IV PUSH ×4 (05:55→23:06)
[2024-07-17 06:00] VITALS: BP 135/84; PULSE 88; RESP 20; TEMP 36.5; O2SAT 98
[2024-07-17 06:05] LABS: Hematocrit 40.6 % (37.0-47.0); Hemoglobin 13.1 g/dL (12.0-15.0); Mean Corpuscular HGB Conc 32.3 g/dl (32-36); Mean Corpuscular Hemoglobin 30.9 pg (26-34); Mean Corpuscular Volume 95.8 fl (80-100); Mean Platelet Volume 9.9 fl (7.4-10.4); Platelet Count Result 312 k/mm3 (150-375); Red Blood Count 4.24 M/mm3 (4.2-5.4); Red Cell Distribution Width 13.6 % (11.5-14.5)
[2024-07-17 06:11] LABS: INR 1.2
[2024-07-17] MEDS: LEVOTHYROXINE SODIUM INJ 100 MCG/5 ML VIAL 50 MCG IV PUSH (06:13)
[2024-07-17 06:16] LABS: Anion Gap 7 mmol/L (4-12); Blood Urea Nitrogen 27 mg/dL (7-17); Calcium 7.8 mg/dL (8.4-10.2); Carbon Dioxide 25 mmol/L (22-30); Chloride 107 mmol/L (98-107); Estimated CRCL calculation 86 ml/min; Estimated Glomerular Filt Rate > 60; Glucose 112 mg/dL (65-110); Magnesium 2.2 mg/dL (1.6-2.3); Potassium 3.5 mmol/L (3.4-5.0); Sodium 139 mmol/L (137-145)
[2024-07-17 06:23] LABS: Prealbumin 11.9 mg/dL (17.6-36.0)
[2024-07-17 06:47] LABS: Thyroid Stimulating Hormone Reflex < 0.015 uIU/mL (0.465-4.68)
--- NOTE | 2024-07-17 08:56 | P.CONGI_ITS ---
<Statement entered by Damián Giordano MD - 07/17/24 16:19> I, Damián Giordano MD, have provided a substantive portion of the care of this patient and discussed the patient with my Nurse Practitioner. I have reviewed any new relevant radiographic and laboratory results including medications. I agree with her documentation as noted below.?I personally performed the medical decision making and much of the history and exam for this encounter. briefly, she had thryoid cancer s/p surgery and XRT about 4 years ago currently on lenvima which has been causing difficulty swallowing. She is here after unable to eat and admitted to hospital. Plan is EGD tomorrow to assess, then may consider MBS to assess if dysmotility, she has been losing weight and if not medical improvement may need G-tube placement later on. Assessment and Plan Assessment and plan (1) Dysphagia: Qualifiers: Dysphagia type: esophageal phase Qualified Code(s): R13.19 - Other dysphagia Code(s): R13.10 - Dysphagia, unspecified Status: Acute (2) Thyroid cancer: Code(s): C73 - Malignant neoplasm of thyroid gland Status: Acute (3) Malnutrition: Qualifiers: Malnutrition type: protein-calorie malnutrition Protein-calorie malnutrition severity: moderate Qualified Code(s): E44.0 - Moderate protein- calorie malnutrition Code(s): E46 - Unspecified protein-calorie malnutrition Status: Acute (4) Weight loss: Code(s): R63.4 - Abnormal weight loss Status: Acute (5) GERD (gastroesophageal reflux disease): Qualifiers: Esophagitis presence: esophagitis presence not specified Qualified Code(s): K21.9 - Gastro-esophageal reflux disease without esophagitis Code(s): K21.9 - Gastro-esophageal reflux disease without esophagitis Status: Acute (6) Odynophagia: Code(s): R13.10 - Dysphagia, unspecified Status: Acute Plan 1. Dysphagia/odynophagia/ malnutrition/ weight loss / acid reflux /thyroid cancer: Patient has never had an EGD. Per patient's last colonoscopy approximately 7 years ago performed by Dr. Bennett was normal according to patient's timeline she will be due for a repeat colonoscopy in 3 years. Per patient she was diagnosed with thyroid cancer > 4 years ago. Labs this admission showed WBCs 14 likely secondary to known UTI. HGB 13, HCT 41, MCV 96, platelets 312, INR 1.2. LFTs normal. Chest x-ray next soft tissue showed inflammation of the lower neck is an expected area thyroid with worsening from May of 2021, changes may be secondary to radiation therapy. S/p thyroidectomy and radiation. She has been on Lenvatinib, which she states has been causing side effects including painful and difficult swallowing. per patient her oncologist's has been decreasing her chemotherapy dose without any change in GI symptoms so her medication was discontinued on . Since stopping Lenvatinib her painful and difficult swallowing is improved but not resolved. Prior to stopping her chemo she was having difficulty swallowing liquids, pills, and solid foods. Patient states that over the past 6 months her weight has decreased from 150-108 lb. She admits to a good appetite and denies any early satiety but states that she has not been eating as much due to swallowing difficulty. Denies any nausea, vomiting, or regurgitation. She admits to mild intermittent episodes reflux but has not been taking any OTC medications. She has been taking Tylenol and ibuprofen multiple times daily for a few years. She was previously seen by an ENT provider and sounds as if she had a laryngeal scope, results unknown. patient is aware that if her symptoms persist or her weight continues to decrease we may have to consider placing a PEG tube in the future for supplemental nutrition but since her symptoms have been improving we will start with endoscopic evaluation. * Keep patient NPO * EGD today * If EGD is unremarkable will consider swallow study Thank you very much for allowing me to share in the care of this very nice patient. This report may have been done utilizing a voice recognition system. Attempts have been made to correct errors. However, there may be uncorrected grammatical, spelling, and recognition errors present. GI Consult Note Consult date/time: 07/17/24 08:56 Reason for consult: Dysphagia HPI: This is a 63-year-old female with history of anxiety, depression, GERD, HLD, osteoarthritis, , thyroid cancer s/p thyroidectomy and radiation. The patient presented to the emergency room yesterday with complaints of persistent throat pain and swallowing difficulty. GI has been consulted for dysphagia. Patient was also seen in the ER 07/14 with similar complaints of throat pain thought to be secondary to medication side effect from treatment for thyroid cancer, currently on Lenvatinib. Patient states that she was diagnosed with thyroid cancer >4 years ago and is S/P thyroidectomy. Patient has been experiencing dysphagia with liquids, pills, and solids while on her chemotherapy medication. Per patient her oncologists has been decreasing her chemotherapy dose without improvement of GI symptoms. She discontinued her chemotherapy on and states that her throat pain and swallowing difficulty has significantly improved. She admits to mild intermittent reflux along with a significant weight loss over the past 6 months secondary to pain and difficulty swallowing. Per patient she went from 150 lb to 108 lbs. denies abdominal pain, nausea, vomiting, bloating, regurgitation, early satiety or appetite loss. She is having a formed on urgent bowel movement every 3-4 days without difficulty. Denies diarrhea, constipation, hematochezia, or melena. Patient has been taking ibuprofen and Tylenol multiple times daily for a few years. Patient is a daily smoker saying that she typically smokes 1/3 pack daily but has not had any cigarettes over the past few days. She is a nondrinker and denies marijuana use. Family history negative for CRC or IBD in a first-degree relative but her maternal uncle she believes had colon cancer. Denies aspirin or anticoagulant use but does take ibuprofen multiple times daily. ENDOSCOPY HISTORY: EGD: Patient has never had an EGD COLONOSCOPY: Per patient last colonoscopy performed by Dr. Bennett approximately 7 years ago, endoscopy results unavailable but per patient was normal LABS AND STOOL STUDIES: Labs 05/17/2025 showed sodium 139, potassium 3.5, BUN 27, creatinine 0.42, GFR > 60. WBC is 14, HGB 13, HCT 41, MCV 96, platelets 312, INR 1.2. Total bilirubin 0.7, AST 18, ALT 12, alkaline phosphatase 94, albumin 4.2, calcium 7.8, magnesium 2.2, and TSH < 0.015 IMAGING: CT soft tissue neck 07/14/2024 IMPRESSION: 1. Inflammation of the larynx and expected area of the thyroid with worsening from 06/02/21, which may be changes of radiation therapy. Chest Xray 07/24/2024 IMPRESSION: 1: NO ACUTE CARDIOPULMONARY DISEASE. Review of Systems 2 Constitutional: Constitutional: Reports as per HPI and Reports fatigue ENT: Reports as per HPI Comments: painful and difficult swallowing S[employer], but this has been improving since D/C chemotherapy medication on Cardiovascular: Cardiovascular: Reports as per HPI, Denies chest pain and Denies dyspnea Respiratory: Respiratory: Denies cough and Denies dyspnea Gastrointestinal: Gastrointestinal: Reports as per HPI Musculoskeletal: Musculoskeletal: Reports as per HPI Integumentary/Breasts: Skin/Breast: Reports as per HPI Psychiatric: Psychiatric: Reports as per HPI Endocrine: Endocrine: Reports no additional endocrine complaints Hematologic/Lymphatic: Hematologic/Lymphatic: Reports no additional hematologic/lymphatic complaints [facility] Past Medical History Medical History (Updated 07/17/24 @ 09:02 by Genesis Rodríguez APRN) Gastroesophageal reflux disease Osteoarthritis Depression Hyperlipidemia Thyroid cancer Anxiety Surgical History Surgical History (Updated 07/16/24 @ 22:24 by Marianela Dubois PA-C) History of section History of thyroidectomy Family History Family History Mother Diabetes mellitus Social History Social History (Updated 07/16/24 @ 22:24 by Marianela Dubois PA-C) Social History: Surrogate medical decision maker: Rocio Dhara, sibling. Code status: Full code. Years smoked: 46 Smoking status: Current every day smoker Tobacco type: cigarettes Second hand tobacco smoke exposure: Yes Alcohol intake: never Substance use: former Do You Feel Safe in your Home?: Yes Lack of Transportation: No Lack of Food: Never True Current Housing: I Have Housing Concerned About Future Housing: No Difficulty Paying Gas/Electric Bills: No Difficulty Paying for Meds: No Currently Unemployed: No Education: High School Diploma/GED Difficulty w/ Childcare or Family Care: No Spiritual care concerns: No Meds Home Medications and Allergies Home Medications ?Medication ?Instructions ?Recorded ?Confirmed ?Type atorvastatin 40 mg tablet 40 mg PO HS 07/05/20 07/16/24 History famotidine 20 mg tablet 20 mg PO BID PRN Acid Reflux 07/05/20 07/16/24 History fluticasone propionate 50 1 spray intranasal DAILY 07/05/20 07/16/24 History mcg/actuation nasal spray,suspension gabapentin 300 mg capsule 300 mg PO TID 07/05/20 07/16/24 History pantoprazole 40 mg tablet,delayed 40 mg PO DAILY 07/05/20 07/16/24 History release paroxetine HCl 40 mg tablet 40 mg PO DAILY 07/05/20 07/16/24 History trazodone 50 mg tablet 50 mg PO HS 07/05/20 07/16/24 History vitamin B complex 1 cap PO DAILY 12/11/20 07/16/24 History vitamin E 200 unit capsule 200 unit PO TID 12/11/20 07/16/24 History acetaminophen 500 mg tablet 1,000 mg (2 x 500 mg) PO Q8H PRN 12/15/20 07/16/24 Rx Pain #0 tabs cyclobenzaprine 5 mg tablet 5 mg PO TID PRN muscle spasm #20 07/17/22 07/16/24 Rx tabs hydroxyzine HCl 25 mg tablet 25 mg PO BID PRN anxiety 07/16/24 07/16/24 History ibuprofen 800 mg tablet 800 mg PO TID PRN pain 07/16/24 07/16/24 History levothyroxine 112 mcg tablet 112 mcg PO DAILY 07/16/24 07/16/24 History oxybutynin chloride 5 mg 5 mg PO DAILY 07/16/24 07/16/24 History tablet,extended release 24 hr Allergies Allergy/AdvReac Type Severity Reaction Status Date / Time No Known Allergies Allergy Mild Verified 07/16/24 13:34 Vital Signs Vital Signs - 24 hr 07/16/24 09:38 07/16/24 12:31 07/16/24 12:50 Temperature 98.2 F Pulse Rate 109 H 106 H Respiratory Rate 18 Blood Pressure 114/60 116/57 L Pulse Oximetry 97 97 97 Oxygen Delivery 07/16/24 13:03 07/16/24 13:15 07/16/24 13:16 Temperature Pulse Rate Respiratory Rate Blood Pressure 120/62 Pulse Oximetry 96 97 97 Oxygen Delivery 07/16/24 13:30 07/16/24 13:32 07/16/24 13:36 Temperature Pulse Rate 108 H Respiratory Rate Blood Pressure 119/94 H Pulse Oximetry 95 Oxygen Delivery 07/16/24 13:36 07/16/24 13:36 07/16/24 13:45 Temperature 98.3 F Pulse Rate 110 H 101 H Respiratory Rate 18 29 H Blood Pressure 119/94 H Pulse Oximetry 99 99 99 Oxygen Delivery Room Air Room Air 07/16/24 13:47 07/16/24 14:02 07/16/24 14:16 Temperature Pulse Rate 103 H 105 H 101 H Respiratory Rate 20 21 H 18 Blood Pressure 125/84 Pulse Oximetry 99 98 99 Oxygen Delivery 07/16/24 14:30 07/16/24 14:45 07/16/24 14:46 Temperature Pulse Rate 101 H 101 H 101 H Respiratory Rate 21 H 25 H 18 Blood Pressure 131/72 Pulse Oximetry 100 98 98 Oxygen Delivery 07/16/24 15:00 07/16/24 15:01 07/16/24 15:07 Temperature Pulse Rate 99 99 101 H Respiratory Rate 27 H 20 16 Blood Pressure 124/72 124/72 Pulse Oximetry 99 98 98 Oxygen Delivery 07/16/24 15:18 07/16/24 15:42 07/16/24 15:45 Temperature Pulse Rate 97 95 96 Respiratory Rate 19 21 H 23 H Blood Pressure Pulse Oximetry 97 97 97 Oxygen Delivery 07/16/24 16:00 07/16/24 16:00 07/16/24 16:15 Temperature Pulse Rate 96 99 92 Respiratory Rate 16 24 H 19 Blood Pressure 134/68 Pulse Oximetry 98 97 98 Oxygen Delivery 07/16/24 16:30 07/16/24 16:45 07/16/24 16:52 Temperature Pulse Rate 95 96 100 Respiratory Rate 21 H 22 H 17 Blood Pressure 125/75 Pulse Oximetry 98 97 86 L Oxygen Delivery 07/16/24 16:58 07/16/24 17:00 07/16/24 17:17 Temperature Pulse Rate 100 103 H 93 Respiratory Rate 20 24 H 23 H Blood Pressure 125/75 Pulse Oximetry 100 97 Oxygen Delivery 07/16/24 17:32 07/16/24 17:48 07/16/24 18:00 Temperature Pulse Rate 98 101 H 93 Respiratory Rate 19 25 H 30 H Blood Pressure Pulse Oximetry 98 97 Oxygen Delivery 07/16/24 18:15 07/16/24 18:30 07/16/24 18:32 Temperature Pulse Rate 105 H 96 93 Respiratory Rate 29 H 24 H 22 H Blood Pressure 144/67 H Pulse Oximetry 97 94 99 Oxygen Delivery 07/16/24 18:37 07/16/24 18:45 07/16/24 18:46 Temperature Pulse Rate 97 94 93 Respiratory Rate 16 17 15 Blood Pressure 144/67 H 123/53 L Pulse Oximetry 100 100 100 Oxygen Delivery 07/16/24 19:12 07/16/24 19:15 07/16/24 19:16 Temperature Pulse Rate 95 92 97 Respiratory Rate 21 H 21 H 27 H Blood Pressure 133/63 Pulse Oximetry 99 98 100 Oxygen Delivery 07/16/24 19:32 07/16/24 19:48 07/16/24 20:00 Temperature Pulse Rate 95 98 92 Respiratory Rate 28 H 35 H 21 H Blood Pressure 133/64 Pulse Oximetry 98 96 Oxygen Delivery 07/16/24 20:01 07/16/24 20:19 07/16/24 20:58 Temperature 97.9 F Pulse Rate 91 89 Respiratory Rate 21 H 24 H Blood Pressure 139/67 Pulse Oximetry 98 100 Oxygen Delivery Room Air 07/17/24 00:00 07/17/24 06:00 Temperature 97.0 F L 97.7 F Pulse Rate 86 88 Respiratory Rate 20 20 Blood Pressure 124/51 L 135/84 Pulse Oximetry 100 98 Oxygen Delivery Exam 2 Const: General: cooperative, comfortable, no acute distress, well developed, ill appearing, thin and underweight Orientation/consciousness: oriented to person, oriented to place, oriented to time and patient oriented x3 HENMT: Head: normal to inspection, normocephalic and atraumatic Mouth: Yes Normal oral and palatal mucosa present and Yes moist mucous membranes Eyes: General: appearance normal, both eyes and all related structures C onjunctivae: conjunctivae normal Sclera: sclerae normal Pupils: Equal, round and reactive pupils present Neck: Neck: normal visual inspection Chest: Chest palpation & inspection: normal inspection of the chest Resp: Effort & Inspection: normal respiratory effort and able to speak in complete sentences Auscultation: clear to auscultation bilaterally Cardio: Jugular venous distension: no JVD Rate: regular rate Rhythm: r egular rhythm Heart sounds: S1 normal heart sound present and S2 normal heart sound present GI: Inspection: normal to inspection GI Palp: Yes Soft to palpation and Yes No hepatosplenomegaly present Auscultation: normal bowel sounds Rectal Exam: deferred Skin: General skin exam: normal color and no rashes or lesions noted Neuro: General: oriented to person, oriented to place, oriented to time and patient oriented x3 Cranial nerves: Yes Equal, round and reactive pupils present Speech: normal speech Extrem: General: normal to inspection and no clubbing, cyanosis or edema Psych: Appearance: grossly normal and well kempt Affect: normal affect Results Labs 07/17/24 05:37 07/17/24 05:37 Labs: Short CBC 07/16/24 07/17/24 Range/Units 13:43 05:37 WBC 15.6 H 14.0 H (4.5-10.0) K/mm3 Hgb 14.4 13.1 (12.0-15.0) g/dL Hct 43.2 40.6 (37.0-47.0) % Plt Count 327 312 (150-375) k/mm3 BMP 07/16/24 07/17/24 13:43 05:37 Sodium 137 139 Potassium 3.5 3.5 Chloride 101 107 Carbon Dioxide 26 25 BUN 32 H D 27 H Creatinine 0.51 L 0.42 L Glucose 102 112 H Calcium 8.9 7.8 L Liver Function 07/16/24 Range/Units 13:43 Total Bilirubin 0.7 (0.2-1.3) mg/dL AST 18 (14-36) U/L ALT 12 (6-35) U/L Alkaline Phosphatase 94 (38-126) U/L Albumin 4.2 (3.5-5.1) g/dL Urine 07/16/24 Range/Units 15:35 Urine Color Yellow (Yellow) Urine Appearance Cloudy H (Clear) Urine pH 5.5 (5.0-9.0) Ur Specific [place] 1.018 (1.001-1.035) Urine Protein 1+ H (Negative) mg/dL Urine Glucose (UA) Negative (Negative) mg/dL
[2024-07-17 08:59] LABS: Free T4 Free Thyroxine Reflex 2.34 ng/dL (0.78-2.19)
[2024-07-17] MEDS: PANTOPRAZOLE SODIUM IV 40 MG VIAL IV PUSH (09:22)
--- NOTE | 2024-07-17 13:39 | PCSTNOTE ---
Please refer to the Modified Barium Swallow Evaluation in the EMR. The pt was seen for a Modified Barium Swallow. History includes thyroid cancer status post thyroidectomy and radiation. She presented to the emergency department with complaints of a sore throat and difficulty swallowing. Pt is currently on Lenvatinib (a cancer drug), a known side effect of Lenvatinib is hoarseness; her oncologist told her to hold the drug for period of time if she begins having issues. She started to have throat pain and hoarseness, and she stopped taking the drug; however her symptoms persisted. She was seen in the ED 2 days ago for her symptoms at which time a CT scan of the soft tissue of the neck showed inflammation of the larynx. She reports that she is unable to hold down even water as it comes up almost immediately. Per her H&P, she is feeling weak and dehydrated; she reported in the ED that there were talks previously about inserting a G-tube for supplementation as she has lost nearly 50 lb over the course of a few months due to poor oral intake. Also to note, she saw an ENT last year for laryngoscopy and was told she has a lot of spit and that was the problem. However, she reported that her vocal cords were never visualized, and she left the office, never to return. At this time, she was admitted for swallow evaluation and possible PEG tube. She was seated for a lateral view. Cervical hardware was present from a previous cervical surgery. She was presented with 5ml thin liquid via spoon and approximately ? tsp pudding via spoon. The oral stages were within functional limits; during the pharyngeal stage, reduced tongue base retraction was exhibited as evidenced by max vallecular residue, reduced pharyngeal squeeze as evidenced by pharyngeal wall residue, & reduced laryngeal elevation as evidenced by max pyriform sinus residue and laryngeal penetration during the swallow. Residuals spilled into the laryngeal vestibule and were aspirated after the swallow. Pt lacked neck ROM in order to perform a chin tuck. The effortful swallow as well as the supraglottic swallow techniques were attempted in order to potentially improve the swallow but were unsuccessful. It is also suspected that the UES may lack relaxation in order to allow the passage of contents also contributing to the max pyriform sinus residual. Impression: Severe dysphagia Recommendation: NPO. After speaking with the hospitalist, due to laryngeal inflammation, dysphagia therapy is not warranted at this time.
[2024-07-17 14:00] VITALS: BP 163/59; PULSE 79; RESP 18; TEMP 36.1; O2SAT 98
--- NOTE | 2024-07-17 17:02 | P.PNIM_ITS ---
Progress Note: A&P Assessment and Plan (1) Dysphagia: Qualifiers: Dysphagia type: esophageal phase Qualified Code(s): R13.19 - Other dysphagia Code(s): R13.10 - Dysphagia, unspecified Status: Acute Assessment and Plan: 07/17/24 * GI consulted * Pt failed MBS * EGD tomorrow. * Potential for G-tube needed. * Secondary to side effect of Chemotherapeutic agent. * Continue Protonix * Continue Solumedrol for the appearance of inflammation around the larynx. (2) Dehydration: Code(s): E86.0 - Dehydration Status: Acute Assessment and Plan: 07/17/24 * Continue IV abx of NS at 75 ml/hr (3) Laryngitis: Code(s): J04.0 - Acute laryngitis Status: Acute Assessment and Plan: 07/17/24 * See Above. (4) Urinary tract infection: Code(s): N39.0 - Urinary tract infection, site not specified Status: Acute Assessment and Plan: 07/17/24: * Continue Rocephin. * Urine Culture pending. (5) Thyroid cancer: Code(s): C73 - Malignant neoplasm of thyroid gland Status: Acute Assessment and Plan: 07/17/24: * See #1. * Current therapeutic agent of Lenvatinib causes current symptoms. Time Spent With Patient Time with patient: 15 - 25 minutes Subjective Date/time seen: 07/17/24 17:02 Interval history: This pt was examined this AM at the bedside in interval assessment. She continues to complain of some sore throat and dysphagia. She chews on ice chips at the bedside and spits them out to keep her mouth moist. She was evaluated by Speech today and failed a barium swallow. She was evaluated by GI today who will do EGD tomorrow and a G-tube possibility has not been ruled out. The pt states she has lost so much weight recently as a result of not being able to eat that she would welcome a G-tube. She has no acute complaint of pain otherwise or any dyspnea. Review of Systems Review of Systems: All systems reviewed & are unremarkable except as noted in HPI and below Exam Narrative: General: Mildly ill-appearing female sitting up in bed. Appears emaciated. HEENT: PERRL, EOMI. Dry mucous membranes. Voice is hoarse. Patent Oropharynx Neck: Supple. No lymphadenopathy or stridor. Respiratory: Lungs are clear to auscultation bilaterally. Cardiovascular: Regular rate and rhythm with S1-S2. Gastrointestinal: Abdomen is soft, flat, nontender, and nondistended with positive bowel sounds. Skin: Warm and dry. Extremities: No cyanosis, clubbing, or edema. Radial and pedal pulses intact. Neurological: Alert. Cranial nerves 2-12 are grossly intact. No gross focal deficits to casual conversation. Psychiatric: Pleasant and cooperative with normal mood and flat affect. Objective Data Vital Signs Vital Signs: Vital Signs - 24 hr 07/16/24 17:17 07/16/24 17:32 07/16/24 17:48 Temperature Pulse Rate 93 98 101 H Respiratory Rate 23 H 19 25 H Blood Pressure Pulse Oximetry 98 Oxygen Delivery 07/16/24 18:00 07/16/24 18:15 07/16/24 18:30 Temperature Pulse Rate 93 105 H 96 Respiratory Rate 30 H 29 H 24 H Blood Pressure Pulse Oximetry 97 97 94 Oxygen Delivery 07/16/24 18:32 07/16/24 18:37 07/16/24 18:45 Temperature Pulse Rate 93 97 94 Respiratory Rate 22 H 16 17 Blood Pressure 144/67 H 144/67 H 123/53 L Pulse Oximetry 99 100 100 Oxygen Delivery 07/16/24 18:46 07/16/24 19:12 07/16/24 19:15 Temperature Pulse Rate 93 95 92 Respiratory Rate 15 21 H 21 H Blood Pressure 133/63 Pulse Oximetry 100 99 98 Oxygen Delivery 07/16/24 19:16 07/16/24 19:32 07/16/24 19:48 Temperature Pulse Rate 97 95 98 Respiratory Rate 27 H 28 H 35 H Blood Pressure Pulse Oximetry 100 98 Oxygen Delivery 07/16/24 20:00 07/16/24 20:01 07/16/24 20:19 Temperature 97.9 F Pulse Rate 92 91 89 Respiratory Rate 21 H 21 H 24 H Blood Pressure 133/64 139/67 Pulse Oximetry 96 98 100 Oxygen Delivery 07/16/24 20:58 07/17/24 00:00 07/17/24 06:00 Temperature 97.0 F L 97.7 F Pulse Rate 86 88 Respiratory Rate 20 20 Blood Pressure 124/51 L 135/84 Pulse Oximetry 100 98 Oxygen Delivery Room Air 07/17/24 09:20 07/17/24 14:00 Temperature 96.9 F L Pulse Rate 79 Respiratory Rate 18 Blood Pressure 163/59 H Pulse Oximetry 98 Oxygen Delivery Room Air Intake/Output Intake/Output: Intake & Output 07/14/24 07/15/24 07/16/24 07/17/24 23:59 23:59 23:59 23:59 Intake Total 1050 1440 Output Total 1650 Balance 1050 -210 Meds/Results Medications: Active Medications Generic Name Dose Route Start Last Admin Trade Name Freq PRN Reason Stop Dose Admin Sodium Chloride 1,000 mls @ 75 mls/hr 07/16/24 17:05 07/17/24 05:55 Normal Saline Iv IV CONT 75 mls/hr .[id number] RACQUEL Administration Ceftriaxone Sodium 1 gm in 50 mls @ 100 mls/hr 07/17/24 17:00 Rocephin 1 Gm/Ns 50 Ml IVPB Q24H RACQUEL Levothyroxine Sodium 50 mcg 07/17/24 06:30 07/17/24 06:13 Levothyroxine Sodium Inj 100 Mcg/5 Ml Vial IV PUSH 50 mcg DAILY@0630 RACQUEL Administration Methylprednisolone Sodium Succinate 40 mg 07/17/24 00:00 07/17/24 12:19 Methylprednisolone Sod Succ 40 Mg Vial IV PUSH 40 mg Q6HR RACQUEL Administration Morphine Sulfate 2 mg 07/17/24 13:24 Morphine Sulfate (*Crx) 2 Mg/Ml Inj IV PUSH Q4H PRN Pain Rated 7-10 Ondansetron HCl 4 mg 07/16/24 17:01 Ondansetron Inj 4 Mg/2 Ml Vial IV PUSH Q4H PRN Nausea Pantoprazole Sodium 40 mg 07/17/24 09:00 07/17/24 09:22 Pantoprazole Sodium Iv 40 Mg Vial IV PUSH 40 mg QAM RACQUEL Administration Radiology Results: ITS Impressions Modified Barium Swallow 07/17/24 11:47 IMPRESSION: 1. Aspiration. 2. Please refer to the speech therapy report for recommendations. Labs Labs: Laboratory Results - last 24 hr 07/17/24 05:37 WBC 14.0 H RBC 4.24 Hgb 13.1 Hct 40.6 MCV 95.8 MCH 30.9 MCHC 32.3 RDW 13.6 Plt Count 312 MPV 9.9 PT 15.0 H INR 1.2 Sodium 139 Potassium 3.5 Chloride 107 Carbon Dioxide 25 Anion Gap 7 BUN 27 H Creatinine 0.42 L Estim Creat Clear Calc 86 Estimated GFR > 60 Glucose 112 H Calcium 7.8 L Magnesium 2.2 Prealbumin 11.9 L TSH (Reflex) < 0.015 L Free T4 2.34 H Quality VTE Prophylaxis VTE prophylaxis: mechanical ordered
[2024-07-17] MEDS: MORPHINE SULFATE (*CRX) 2 MG/ML INJ IV PUSH (17:38)
[2024-07-17 19:44] VITALS: O2SAT 98
[2024-07-17 22:00] VITALS: BP 152/64; PULSE 81; RESP 20; TEMP 36.5; O2SAT 99
[2024-07-18] VITALS (7 sets, daily range): BP systolic 136–178; BP diastolic 58–86; PULSE 80–95; RESP 16–24; TEMP 36–36.9; O2SAT 97–100; BMI 21.6
[2024-07-18] MEDS: methylPREDNISolone SOD SUCC 40 MG VIAL IV PUSH ×4 (05:31→23:50)
[2024-07-18] MEDS: LEVOTHYROXINE SODIUM INJ 100 MCG/5 ML VIAL 50 MCG IV PUSH (05:31)
[2024-07-18 06:00] LABS: Basophils Percent Auto 0.1 % (0.2-1.2); Eosinophils Absolute Auto 0.1 K/mm3 (0-0.3); Eosinophils Percent Auto 0.3 % (0-4.4); Hematocrit 39.8 % (37.0-47.0); Immature Granulocyte Absolute 0.15 K/mm3 (0.00-0.031); Immature Granulocyte Percent A 0.8 % (0-0.5); Lymphocytes Absolute Auto 0.57 K/mm3 (0.9-3.2); Lymphocytes Percent Auto 3.2 % (18.3-44.2); Mean Corpuscular HGB Conc 32.7 g/dl (32-36); Monocytes Absolute Auto 1.4 K/mm3 (0.1-0.6); Monocytes Percent Auto 7.5 % (2.6-8.5); Neutrophils Absolute Auto 15.9 K/mm3 (1.3-6.7); Neutrophils Percent Auto 88.1 % (45.5-73.1); Platelet Count Result 330 k/mm3 (150-375); Red Blood Count 4.19 M/mm3 (4.2-5.4); Red Cell Distribution Width 13.8 % (11.5-14.5); White Blood Count 18.1 K/mm3 (4.5-10.0)
[2024-07-18 06:20] LABS: Alanine Aminotransferase 9 U/L (6-35); Albumin Level 3.4 g/dL (3.5-5.1); Alkaline Phosphatase 86 U/L (38-126); Anion Gap 8 mmol/L (4-12); Aspartate Amino Transferase 16 U/L (14-36); Bilirubin,Total 0.5 mg/dL (0.2-1.3); Blood Urea Nitrogen 28 mg/dL (7-17); Calcium 7.7 mg/dL (8.4-10.2); Carbon Dioxide 26 mmol/L (22-30); Chloride 109 mmol/L (98-107); Estimated CRCL calculation 74 ml/min; Estimated Glomerular Filt Rate > 60; Glucose 115 mg/dL (65-110); Potassium 5.3 mmol/L (3.4-5.0); Sodium 143 mmol/L (137-145)
[2024-07-18] MEDS: PANTOPRAZOLE SODIUM IV 40 MG VIAL IV PUSH (09:21)
--- NOTE | 2024-07-18 09:34 | P.PNIM_ITS ---
Progress Note: A&P Assessment and Plan (1) Dysphagia: Qualifiers: Dysphagia type: esophageal phase Qualified Code(s): R13.19 - Other dysphagia Code(s): R13.10 - Dysphagia, unspecified Status: Acute Assessment and Plan: * GI consulted * Pt failed MBS * EGD today * possible PEG tube tomorrow * PPN for now * Secondary to side effect of Chemotherapeutic agent. * Continue Protonix * Continue Solumedrol for the appearance of inflammation around the larynx. (2) Dehydration: Code(s): E86.0 - Dehydration Status: Acute Assessment and Plan: * Continue IV NS at 75 ml/hr DC tonight * PPN ordered (3) Laryngitis: Code(s): J04.0 - Acute laryngitis Status: Acute Assessment and Plan: * See Above. (4) Urinary tract infection: Code(s): N39.0 - Urinary tract infection, site not specified Status: Acute Assessment and Plan: * Continue Rocephin. * Urine Culture pending. (5) Thyroid cancer: Code(s): C73 - Malignant neoplasm of thyroid gland Status: Acute Assessment and Plan: * See #1. * Current therapeutic agent of Lenvatinib causes current symptoms. patient states that she has not been taking lately due to her inability to swallow pills * recommend following up with her oncologist * IV Synthroid Time Spent With Patient Time with patient: Greater than 35 minutes Subjective Date/time seen: 07/18/24 09:34 Interval history: 63-year-old female with history of thyroid cancer status post thyroidectomy and radiation currently on lenvatinib, anxiety, hyperlipidemia, gastroesophageal reflux disease, and arthritis who presented to the emergency department via private vehicle with complaints of a sore throat weight loss and difficulty swallowing. patient failed her modified barium swallow patient on Rocephin, Solu-Medrol, and IV fluids patient had EGD today, wanted to give the steroids a few more days before she decided whether not to get a PEG PPN ordered for nutrition Review of Systems Review of Systems: 12 systems were reviewed and are negativ e except for as per HPI. All systems reviewed & are unremarkable except as noted in HPI and below Exam Narrative: General: Mildly ill-appearing female sitting up in bed. Appears emaciated. HEENT: PERRL, EOMI. Dry mucous membranes. Voice is hoarse. Patent Oropharynx Neck: Supple. No lymphadenopathy or stridor. Respiratory: Lungs are clear to auscultation bilaterally. Cardiovascular: Regular rate and rhythm with S1-S2. Gastrointestinal: Abdomen is soft, flat, nontender, and nondistended with positive bowel sounds. Skin: Warm and dry. Extremities: No cyanosis, clubbing, or edema. Radial and pedal pulses intact. Neurological: Alert. Cranial nerves 2-12 are grossly intact. No gross focal deficits to casual conversation. Psychiatric: Pleasant and cooperative with normal mood and flat affect. Objective Data Vital Signs Vital Signs: Vital Signs - 24 hr 07/17/24 14:00 07/17/24 19:44 07/17/24 20:00 Temperature 96.9 F L Pulse Rate 79 Respiratory Rate 18 Blood Pressure 163/59 H Pulse Oximetry 98 98 Oxygen Delivery Room Air Room Air Fraction of Inspired Oxygen 21 07/17/24 22:00 07/18/24 06:00 Temperature 97.7 F 97.0 F L Pulse Rate 81 83 Respiratory Rate 20 20 Blood Pressure 152/64 H 146/58 H Pulse Oximetry 99 98 Oxygen Delivery Fraction of Inspired Oxygen Intake/Output Intake/Output: Intake & Output 07/15/24 07/16/24 07/17/24 07/18/24 23:59 23:59 23:59 23:59 Intake Total 1050 1440 Output Total 1750 1100 Balance 1050 -310 -1100 Meds/Results Medications: Active Medications Generic Name Dose Route Start Last Admin Trade Name Freq PRN Reason Stop Dose Admin Sodium Chloride 1,000 mls @ 75 mls/hr 07/16/24 17:05 07/17/24 05:55 Normal Saline Iv IV CONT 75 mls/hr .[id number] RACQUEL Administration Ceftriaxone Sodium 1 gm in 50 mls @ 100 mls/hr 07/17/24 17:00 07/17/24 17:36 Rocephin 1 Gm/Ns 50 Ml IVPB 100 mls/hr Q24H RACQUEL Administration Levothyroxine Sodium 50 mcg 07/17/24 06:30 07/18/24 05:31 Levothyroxine Sodium Inj 100 Mcg/5 Ml Vial IV PUSH 50 mcg DAILY@0630 RACQUEL Administration Methylprednisolone Sodium Succinate 40 mg 07/17/24 00:00 07/18/24 05:31 Methylprednisolone Sod Succ 40 Mg Vial IV PUSH 40 mg Q6HR RACUQEL Administration Morphine Sulfate 2 mg 07/17/24 13:24 07/17/24 17:38 Morphine Sulfate (*Crx) 2 Mg/Ml Inj IV PUSH 2 mg Q4H PRN Administration Pain Rated 7-10 Ondansetron HCl 4 mg 07/16/24 17:01 Ondansetron Inj 4 Mg/2 Ml Vial IV PUSH Q4H PRN Nausea Pantoprazole Sodium 40 mg 07/17/24 09:00 07/18/24 09:21 Pantoprazole Sodium Iv 40 Mg Vial IV PUSH 40 mg QAM RACQUEL Administration Radiology Results: ITS Impressions Modified Barium Swallow 07/17/24 11:47 IMPRESSION: 1. Aspiration. 2. Please refer to the speech therapy report for recommendations. Labs Labs: Laboratory Results - last 24 hr 07/18/24 05:24 WBC 18.1 H RBC 4.19 L Hgb 13.0 Hct 39.8 MCV 95.0 MCH 31.0 MCHC 32.7 RDW 13.8 Plt Count 330 MPV 10.0 Immature Gran % (Auto) 0.8 H Neut % (Auto) 88.1 H Lymph % (Auto) 3.2 L Jennings % (Auto) 7.5 Eos % (Auto) 0.3 Baso % (Auto) 0.1 L Lymph # (Auto) 0.57 L Jennings # (Auto) 1.4 H Eos # (Auto) 0.1 Baso # (Auto) 0.0 Abs Immat Gran (auto) 0.15 H Absolute Neuts (auto) 15.9 H Absolute Nucleated RBC 0.000 Nucleated RBC % 0.0 Sodium 143 Potassium 5.3 H Chloride 109 H Carbon Dioxide 26 Anion Gap 8 BUN 28 H Creatinine 0.49 L Estim Creat Clear Calc 74 Estimated GFR > 60 Glucose 115 H Calcium 7.7 L Total Bilirubin 0.5 AST 16 ALT 9 Alkaline Phosphatase 86 Total Protein 7.0 Albumin 3.4 L Quality VTE Prophylaxis VTE prophylaxis: mechanical ordered Hospitalist MIPS Advance Care Plan I have confirmed that the patient's Advanced Care Plan is present, code status is documented, or surrogate decision maker is listed in patient medical record.: Yes Medication Reconciliation I have utilized all available resources to obtain, update and review the patients current medications (includes all prescriptions, OTC, herbals, cannabis, and nutritional supplements).: Yes
--- NOTE | 2024-07-18 09:44 | WPDANESEPPF ---
Anes - Initial Pre Proc Eval Procedure: Operation Date: 07/18/24 10:30 Proposed Procedures p Esophagogastroduodenoscopy - Damián Giordano MD Date/Time: 07/18/24 09:44 Surgeon: TRINI Guerrero Pre Op Diagnosis: uti, dehydration, dysphagia Patient Data Age: 63 Gender: F Height: 1.57 m Weight: 53.7 kg Last Vital Signs Temp 36.1 C L 07/18/24 06:00 Pulse 83 07/18/24 06:00 Resp 20 07/18/24 06:00 BP 146/58 H 07/18/24 06:00 Pulse Ox 98 07/18/24 06:00 O2 Del Method Room Air 07/18/24 09:25 FiO2 21 07/17/24 19:44 Allergies Allergy/AdvReac Type Severity Reaction Status Date / Time No Known Allergies Allergy Mild Verified 07/16/24 13:34 Home Medications ?Medication ?Instructions ?Recorded ?Confirmed ?Type atorvastatin 40 mg tablet 40 mg PO HS 07/05/20 07/16/24 History famotidine 20 mg tablet 20 mg PO BID PRN Acid Reflux 07/05/20 07/16/24 History fluticasone propionate 50 1 spray intranasal DAILY 07/05/20 07/16/24 History mcg/actuation nasal spray,suspension gabapentin 300 mg capsule 300 mg PO TID 07/05/20 07/16/24 History pantoprazole 40 mg tablet,delayed 40 mg PO DAILY 07/05/20 07/16/24 History release paroxetine HCl 40 mg tablet 40 mg PO DAILY 07/05/20 07/16/24 History trazodone 50 mg tablet 50 mg PO HS 07/05/20 07/16/24 History vitamin B complex 1 cap PO DAILY 12/11/20 07/16/24 History vitamin E 200 unit capsule 200 unit PO TID 12/11/20 07/16/24 History acetaminophen 500 mg tablet 1,000 mg (2 x 500 mg) PO Q8H PRN 12/15/20 07/16/24 Rx Pain #0 tabs cyclobenzaprine 5 mg tablet 5 mg PO TID PRN muscle spasm #20 07/17/22 07/16/24 Rx tabs hydroxyzine HCl 25 mg tablet 25 mg PO BID PRN anxiety 07/16/24 07/16/24 History ibuprofen 800 mg tablet 800 mg PO TID PRN pain 07/16/24 07/16/24 History levothyroxine 112 mcg tablet 112 mcg PO DAILY 07/16/24 07/16/24 History oxybutynin chloride 5 mg 5 mg PO DAILY 07/16/24 07/16/24 History tablet,extended release 24 hr Laboratory Tests 07/18/24 05:24 WBC 18.1 H K/mm3 (4.5-10.0) RBC 4.19 L M/mm3 (4.2-5.4) Hgb 13.0 g/dL (12.0-15.0) Hct 39.8 % (37.0-47.0) MCV 95.0 fl (80-100) MCH 31.0 pg (26-34) MCHC 32.7 g/dl (32-36) RDW 13.8 % (11.5-14.5) Plt Count 330 k/mm3 (150-375) MPV 10.0 fl (7.4-10.4) Immature Gran % (Auto) 0.8 H % (0-0.5) Neut % (Auto) 88.1 H % (45.5-73.1) Lymph % (Auto) 3.2 L % (18.3-44.2) Gage % (Auto) 7.5 % (2.6-8.5) Eos % (Auto) 0.3 % (0-4.4) Baso % (Auto) 0.1 L % (0.2-1.2) Lymph # (Auto) 0.57 L K/mm3 (0.9-3.2) Gage # (Auto) 1.4 H K/mm3 (0.1-0.6) Eos # (Auto) 0.1 K/mm3 (0-0.3) Baso # (Auto) 0.0 K/mm3 (0.0-0.1) Abs Immat Gran (auto) 0.15 H K/mm3 (0.00-0.031) Absolute Neuts (auto) 15.9 H K/mm3 (1.3-6.7) Absolute Nucleated RBC 0.000 K/mm3 (0.0-0.012) Nucleated RBC % 0.0 % (0.0-0.2) Sodium 143 mmol/L (137-145) Potassium 5.3 H mmol/L (3.4-5.0) Chloride 109 H mmol/L (98-107) Carbon Dioxide 26 mmol/L (22-30) Anion Gap 8 mmol/L (4-12) BUN 28 H mg/dL (7-17) Creatinine 0.49 L mg/dL (0.7-1.0) Estim Creat Clear Calc 74 ml/min Estimated GFR > 60 (59 - ) Glucose 115 H mg/dL (65-110) Calcium 7.7 L mg/dL (8.4-10.2) Total Bilirubin 0.5 mg/dL (0.2-1.3) AST 16 U/L (14-36) ALT 9 U/L (6-35) Alkaline Phosphatase 86 U/L (38-126) Total Protein 7.0 g/dL (6.3-8.2) Albumin 3.4 L g/dL (3.5-5.1) Patient hx anesthesia problems: none Family hx anesthesia problems: none Results Review: All pre-operative results and documents have been reviewed as part of the pre-operative evaluation. [facility] Past Medical History Medical History Gastroesophageal reflux disease Osteoarthritis Depression Hyperlipidemia Thyroid cancer Anxiety Surgical History Surgical History History of section History of thyroidectomy Family History Family History Mother Diabetes mellitus Social History Social History Social History: Surrogate medical decision maker: Roico Jules, sibling. Code status: Full code. Years smoked: 46 Smoking status: Current every day smoker Tobacco type: cigarettes Second hand tobacco smoke exposure: Yes Alcohol intake: never Substance use: former Do You Feel Safe in your Home?: Yes Lack of Transportation: No Lack of Food: Never True Current Housing: I Have Housing Concerned About Future Housing: No Difficulty Paying Gas/Electric Bills: No Difficulty Paying for Meds: No Currently Unemployed: No Education: High School Diploma/GED Difficulty w/ Childcare or Family Care: No Spiritual care concerns: No Anes - Eval Final PreProcedure Day of Procedure 07/18/24 09:44 Patient weight: normal Heart: regular rate and rhythm Lungs: clear to auscultation Airway: Mallampati scale class II Neurological: alert and oriented Last oral intake: >/= 8 hours ASA classification: III Emergent: no Anesthetic plan: proceed Anesthesia type and monitoring: general GIVS and standard monitoring Results Review: All pre-operative results and documents have been reviewed as part of the pre-operative evaluation. Informed Consent: The patient's anesthetic plan and its attendant risks and benefits were discussed with the patient/family/POA. Questions were solicited and answers provided to the satisfaction of the patient/family/POA.
[2024-07-18] MEDS: LACTATED RINGERS 1,000 ML 150 ML IV CONT (09:51)
[2024-07-18] MEDS: BENZOCAINE (*SP) 60 ML SPRAY CAN (HURRICAINE) 1 SPRAY MUCOUS MEM (10:13)
--- NOTE | 2024-07-18 10:25 | S_PTH ---
PATIENT: Brisa Walters LOC: ANHICU U#:[id number] AGE/SX: 63/F ROOM: [facility] RE07/18/[address]: Nikia Chawla APRN : 1960 BED: 2 DIS: 07/22/2024 SPEC #: [id number] RECD: 07/18/24 11:38 STATUS: MONICO REQ #: [id number] RENZO: 07/18/24 10:[address]: Damián Giordano DEPT: [facility] Surgical RECD BY: Du Almanza ENTERED: 07/18/24 11:39 SP TYPE: Surgical OTHR DR: Swati Powers, MORALES-C Steffany Rhoades MD PHYSICIAN NOT ON STAFF Tissues: A - Gastric Biopsy Procedures: Hematoxylin and Eosin Stain Gross and Microscopic Level 4
[2024-07-18] MEDS: MORPHINE SULFATE (*CRX) 2 MG/ML INJ IV PUSH ×3 (11:14→20:38)
[2024-07-18] MEDS: SODIUM CHLORIDE 0.9% IV 1,000 ML 75 ML IV CONT (12:36)
[2024-07-18] MEDS: AMINO ACIDS 4.25%/D5W/LYTES/CA 2,000 ML 80 ML IV CONT (17:33)
[2024-07-18 23:48] LABS: Glucose Point of Care 128 mg/dl (65-105)
--- NOTE | 2024-07-19 02:54 | ECG_ITS ---
Test Date: 2024-07-19 03:21:57 Measurements Intervals Michael Rate: 70 P: 73 WA: 119 QRS: 67 QRSD: 82 T: 70 QT: 405 QTc: 438 Interpretive Statements SINUS RHYTHM WITH SHORT WA INTERVAL POSSIBLE LEFT ATRIAL ENLARGEMENT [-0.1mV P-WAVE IN V1/V2] POSSIBLE LEFT VENTRICULAR HYPERTROPHY [VOLTAGE CRITERIA PLUS LAE OR QRS WIDENING] Compared to ECG 07/14/2024 06:34:37 NO SIGNIFICANT CHANGES Electronically Signed On 07-19-2024 14:25:47 SECURITY ARCHITECT by Marichuy Zapata M.D.
--- NOTE | 2024-07-19 02:59 | PC.NURSE ---
Pt called out stated her left jaw and heart hurt. Stat EKG ordered notified
[2024-07-19] MEDS: methylPREDNISolone SOD SUCC 40 MG VIAL IV PUSH ×3 (05:40→17:19)
[2024-07-19] MEDS: LEVOTHYROXINE SODIUM INJ 100 MCG/5 ML VIAL 50 MCG IV PUSH (05:40)
[2024-07-19 06:00] VITALS: BP 139/49; PULSE 66; RESP 16; TEMP 37; O2SAT 100
[2024-07-19 06:14] LABS: Anion Gap 4 mmol/L (4-12); Blood Urea Nitrogen 24 mg/dL (7-17); Calcium 7.7 mg/dL (8.4-10.2); Carbon Dioxide 32 mmol/L (22-30); Chloride 100 mmol/L (98-107); Estimated CRCL calculation 75 ml/min; Estimated Glomerular Filt Rate > 60; Glucose 151 mg/dL (65-110); Phosphorus 3.2 mg/dL (2.5-4.5); Potassium 3.2 mmol/L (3.4-5.0); Sodium 136 mmol/L (137-145)
[2024-07-19 06:28] LABS: Glucose Point of Care 150 mg/dl (65-105)
--- NOTE | 2024-07-19 06:40 | P.CDI_ITS ---
CDI Query Clarification Request BMI: 21.7 Nutritional Diagnostic Statement: Please refer to the comprehensive nutrition assessment for further information. If you agree with diagnosis of Severe Protein Calorie Malnutrition as related to inadequate protein energy intake with increased protein energy needs in setting of chronic disease (cancer) as evidenced by minimal oral intake for > 1-2 months with failed MBS on 07/17 recommending NPO; significant weight loss of 20% (32 ibs) 6 months; severe muscle wasting (temporalis) and subcutaneous fat loss (orbital fat pads). Please specify severity if known: * Mild * Moderate * Severe * Other/Unknown <Sanam Dumas RN - Last Filed: 07/19/24 06:45> BMI: 21.7 Nutritional Diagnostic Statement: Please refer to the comprehensive nutrition assessment for further information. If you agree with diagnosis of Severe Protein Calorie Malnutrition as related to inadequate protein energy intake with increased protein energy needs in setting of chronic disease (cancer) as evidenced by minimal oral intake for > 1-2 months with failed MBS on 07/17 recommending NPO; significant weight loss of 20% (32 ibs) 6 months; severe muscle wasting (temporalis) and subcutaneous fat loss (or bital fat pads). Please specify severity if known: * Severe <Kylah Parker APRN - Last Filed: 07/19/24 08:59>
--- NOTE | 2024-07-19 08:54 | P.PNIM_ITS ---
Progress Note: A&P Assessment and Plan (1) Dysphagia: Qualifiers: Dysphagia type: esophageal phase Qualified Code(s): R13.19 - Other dysphagia Code(s): R13.10 - Dysphagia, unspecified Status: Acute Assessment and Plan: * GI consulted * Pt failed MBS * EGD today * possible PEG tube tomorrow * PPN for now * Secondary to side effect of Chemotherapeutic agent. * Continue Protonix * Continue Solumedrol for the appearance of inflammation around the larynx. (2) Dehydration: Code(s): E86.0 - Dehydration Status: Acute Assessment and Plan: * PPN ordered (3) Laryngitis: Code(s): J04.0 - Acute laryngitis Status: Acute Assessment and Plan: * See Above. (4) Urinary tract infection: Code(s): N39.0 - Urinary tract infection, site not specified Status: Acute Assessment and Plan: * Continue Rocephin. * Urine Culture pending. (5) Thyroid cancer: Code(s): C73 - Malignant neoplasm of thyroid gland Status: Acute Assessment and Plan: * See #1. * Current therapeutic agent of Lenvatinib causes current symptoms. patient states that she has not been taking lately due to her inability to swallow pills * recommend following up with her oncologist * IV Synthroid (6) Malnutrition due to starvation: Code(s): E46 - Unspecified protein-calorie malnutrition; T73.0XXS - Starvation, sequela Status: Acute Assessment and Plan: Severe Protein Calorie Malnutrition as related to inadequate protein energy intake with increased protein energy needs in setting of chronic disease (cancer) as evidenced by minimal oral intake for > 1-2 months with failed MBS on 07/17 recommending NPO; significant weight loss of 20% (32 ibs) 6 months; severe muscle wasting (temporalis) and subcutaneous fat loss (orbital fat pads). PPN Time Spent With Patient Time with patient: Greater than 35 minutes Subjective Date/time seen: 07/19/24 08:54 Interval history: 63-year-old female with history of thyroid cancer status post thyroidectomy and radiation currently on lenvatinib, anxiety, hyperlipidemia, gastroesophageal reflux disease, and arthritis who presented to the emergency department via private vehicle with complaints of a sore throat weight loss and difficulty swallowing. patient failed her modified barium swallow patient on Rocephin, Solu-Medrol patient had EGD yesterday, wanted to give the steroids a few more days before she decided whether not to get a PEG PPN continued for nutrition Review of Systems Review of Systems: 12 systems were reviewed and are negativ e except for as per HPI. All systems reviewed & are unremarkable except as noted in HPI and below Exam Narrative: General: Mildly ill-appearing female sitting up in bed. Appears emaciated. HEENT: PERRL, EOMI. Dry mucous membranes. Voice is hoarse. Patent Oropharynx Neck: Supple. No lymphadenopathy or stridor. Respiratory: Lungs are clear to auscultation bilaterally. Cardiovascular: Regular rate and rhythm with S1-S2. Gastrointestinal: Abdomen is soft, flat, nontender, and nondistended with positive bowel sounds. Skin: Warm and dry. Extremities: No cyanosis, clubbing, or edema. Radial and pedal pulses intact. Neurological: Alert. Cranial nerves 2-12 are grossly intact. No gross focal de ficits to casual conversation. Psychiatric: Pleasant and cooperative with normal mood and flat affect. Objective Data Vital Signs Vital Signs: Vital Signs - 24 hr 07/18/24 09:25 07/18/24 09:50 07/18/24 10:27 Temperature 96.8 F L Pulse Rate 80 95 Respiratory Rate 20 24 H Blood Pressure 153/72 H 136/64 Pulse Oximetry 97 100 Oxygen Delivery Room Air Room Air Room Air 07/18/24 10:37 07/18/24 10:47 07/18/24 14:35 Temperature 97.0 F L Pulse Rate 90 85 87 Respiratory Rate 20 19 18 Blood Pressure 148/70 H 153/64 H 178/86 H Pulse Oximetry 98 99 99 Oxygen Delivery Room Air Room Air 07/18/24 20:00 07/18/24 22:00 07/19/24 06:00 Temperature 98.4 F 98.6 F Pulse Rate 81 66 Respiratory Rate 16 16 Blood Pressure 157/69 H 139/49 L Pulse Oximetry 100 100 Oxygen Delivery Room Air Intake/Output Intake/Output: Intake & Output 07/16/24 07/17/24 07/18/24 07/19/24 23:59 23:59 23:59 23:59 Intake Total 1050 2490 500 480 Output Total 1750 1600 1000 Balance 1050 740 -1100 -520 Meds/Results Medications: Active Medications Generic Name Dose Route Start Last Admin Trade Name Freq PRN Reason Stop Dose Admin Diazepam 2 mg 07/18/24 13:54 Diazepam Inj (*Crx) 10 Mg/2 Ml Syringe IV PUSH BID PRN Anxiety Ceftriaxone Sodium 1 gm in 50 mls @ 100 mls/hr 07/17/24 17:00 07/18/24 17:34 Rocephin 1 Gm/Ns 50 Ml IVPB 100 mls/hr Q24H RACQUEL Administration Dextrose 1,000 mls @ 50 mls/hr 07/18/24 13:48 Dextrose 10% IV CONT .Q20H PRN if PN is interrupted Amino Acids/Electrolytes/Dextrose 2,000 mls @ 80 mls/hr 07/18/24 16:00 07/18/24 17:33 Clinimix E 4.25%/5% Solution IV CONT 80 mls/hr .Q24H RACQUEL Administration Protocol Levothyroxine Sodium 50 mcg 07/17/24 06:30 07/19/24 05:40 Levothyroxine Sodium Inj 100 Mcg/5 Ml Vial IV PUSH 50 mcg DAILY@0630 RACQUEL Administration Methylprednisolone Sodium Succinate 40 mg 07/17/24 00:00 07/19/24 05:40 Methylprednisolone Sod Succ 40 Mg Vial IV PUSH 40 mg Q6HR RACQUEL Administration Morphine Sulfate 2 mg 07/17/24 13:24 07/18/24 20:38 Morphine Sulfate (*Crx) 2 Mg/Ml Inj IV PUSH 2 mg Q4H PRN Administration Pain Rated 7-10 Ondansetron HCl 4 mg 07/16/24 17:01 Ondansetron Inj 4 Mg/2 Ml Vial IV PUSH Q4H PRN Nausea Pantoprazole Sodium 40 mg 07/17/24 09:00 07/18/24 09:21 Pantoprazole Sodium Iv 40 Mg Vial IV PUSH 40 mg QAM RACQUEL Administration Radiology Results: ITS Impressions Modified Barium Swallow 07/17/24 11:47 IMPRESSION: 1. Aspiration. 2. Please refer to the speech therapy report for recommendations. Labs Labs: Laboratory Results - last 24 hr 07/18/24 07/19/24 07/19/24 23:46 05:28 05:54 Sodium 136 L Potassium 3.2 L Chloride 100 Carbon Dioxide 32 H Anion Gap 4 BUN 24 H Creatinine 0.49 L Estim Creat Clear Calc 75 Estimated GFR > 60 Glucose 151 H POC Capillary Glucose 128 H 150 H Calcium 7.7 L Phosphorus 3.2 Quality VTE Prophylaxis VTE prophylaxis: mechanical ordered
[2024-07-19] MEDS: MORPHINE SULFATE (*CRX) 2 MG/ML INJ IV PUSH (09:04)
[2024-07-19] MEDS: PANTOPRAZOLE SODIUM IV 40 MG VIAL IV PUSH ×2 (09:05→20:41)
--- NOTE | 2024-07-19 10:39 | WPDANESPN ---
Anes - Prog Note Post-Op Date/Time: 07/19/24 10:39 Cardiovascular status: normal Respiratory status: normal Airway patency: baseline Mental status: baseline Post-Op hydration status: normal Vital Signs: Last Vital Signs Temp 98.6 F 07/19/24 06:00 Pulse 66 07/19/24 06:00 Resp 16 07/19/24 06:00 BP 139/49 L 07/19/24 06:00 Pulse Ox 100 07/19/24 06:00 O2 Del Method Room Air 07/19/24 09:00 FiO2 21 07/17/24 19:44 Pain Score (VAS): 0/10 I/O: Intake & Output 07/18/24 07/19/24 07/19/24 23:59 07:59 15:59 Intake Total 300 480 0 Output Total 300 1000 Balance 0 -520 0 Laboratory Tests 07/18/24 05:24 07/19/24 05:28 07/18/24 07/19/24 07/19/24 23:46 05:28 05:54 Sodium 136 L Potassium 3.2 L Chloride 100 Carbon Dioxide 32 H Anion Gap 4 BUN 24 H Creatinine 0.49 L Estim Creat Clear Calc 75 Estimated GFR > 60 Glucose 151 H POC Capillary Glucose 128 H 150 H Calcium 7.7 L Phosphorus 3.2 Microbiology 07/16/24 15:35 Urine Clean Catch Urine Culture - Final Post-procedural complaints: none Patient Feedback: Patient satisfied with anesthetic care.
[2024-07-19 11:57] LABS: Glucose Point of Care 155 mg/dl (65-105)
[2024-07-19 14:00] VITALS: BP 128/52; PULSE 72; RESP 16; TEMP 36.7; O2SAT 99
[2024-07-19] MEDS: diazePAM INJ (*CRX) 10 MG/2 ML SYRINGE 2 MG IV PUSH ×2 (14:36→20:41)
--- NOTE | 2024-07-19 14:54 | PCDIET ---
Patient started on PPN @ 80 ml/hr providing 1153 kcal/82 gm protein. Plans for PEG today later this week. Will continue to monitor.
[2024-07-19] MEDS: FAT EMULSIONS IV 20% 250 ML 20 ML IVPB (16:33)
[2024-07-19] MEDS: AMINO ACIDS 4.25%/D5W/LYTES/CA 2,000 ML 80 ML IV CONT (16:33)
--- NOTE | 2024-07-19 17:18 | P.PNGI_ITS ---
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: Code(s): T66.XXXA - Radiation sickness, unspecified, initial encounter; J39.2 - Other diseases of pharynx Status: Acute Assessment and Plan: on iv steroids and evaluated by ENT previously will attempt to repeat EGD and place PEG tube, she has been losing weight, findings EGD can explain symptom (2) Dysphagia: Qualifiers: Dysphagia type: esophageal phase Qualified Code(s): R13.19 - Other dysphagia Code(s): R13.10 - Dysphagia, unspecified Status: Acute (3) GERD (gastroesophageal reflux disease): Qualifiers: Esophagitis presence: esophagitis presence not specified Qualified Code(s): K21.9 - Gastro-esophageal reflux disease without esophagitis Code(s): K21.9 - Gastro-esophageal reflux disease without esophagitis Status: Acute Assessment and Plan: ppi daily (4) Malnutrition due to starvation: Code(s): E46 - Unspecified protein-calorie malnutrition; T73.0XXS - Starvation, sequela Status: Acute Assessment and Plan: TPN for now hopefully we can place G-tube tomorrow (5) Thyroid cancer: Code(s): C73 - Malignant neoplasm of thyroid gland Status: Acute (6) History of thyroidectomy: Code(s): E89.0 - Postprocedural hypothyroidism Status: Acute Subjective Date/time seen: 07/19/24 17:18 Interval history: egd yesterday evidence of pharyngeal edema/UES narrowing and she can not eat, on TPN for now will attempt placement G-tube tomorrow then will need follow-up with her ENT Review of Systems Review of Systems: All systems reviewed & are unremarkable except as noted in HPI and below Exam Narrative: General: Mildly ill-appearing female sitting up in bed. HEENT: PERRL, EOMI. Dry mucous membranes. Voice is hoarse. Neck: Supple. No lymphadenopathy or stridor. Respiratory: Lungs are clear to auscultation bilaterally. Cardiovascular: Regular rate and rhythm with S1-S2. Gastrointestinal: Abdomen is soft, flat, nontender, and nondistended with positive bowel sounds. Skin: Warm and dry. Extremities: No cyanosis, clubbing, or edema. Neurological: Alert. No gross focal deficits to casual conversation. Psychiatric: Pleasant and cooperative with normal mood and flat affect. Objective Data Vital Signs Vital Signs: Vital Signs - 24 hr 07/18/24 20:00 07/18/24 22:00 07/19/24 06:00 Temperature 98.4 F 98.6 F Pulse Rate 81 66 Respiratory Rate 16 16 Blood Pressure 157/69 H 139/49 L Pulse Oximetry 100 100 Oxygen Delivery Room Air 07/19/24 09:00 07/19/24 14:00 Temperature 98.0 F Pulse Rate 72 Respiratory Rate 16 Blood Pressure 128/52 L Pulse Oximetry 99 Oxygen Delivery Room Air Intake/Output Intake/Output: Intake & Output 07/16/24 07/17/24 07/18/24 07/19/24 23:59 23:59 23:59 23:59 Intake Total 1050 2490 550 2304 Output Total 1750 1600 1000 Balance 1050 740 -1050 1304 Meds/Results Medications: Active Medications Generic Name Dose Route Start Last Admin Trade Name Freq PRN Reason Stop Dose Admin Diazepam 2 mg 07/18/24 13:54 07/19/24 14:36 Diazepam Inj (*Crx) 10 Mg/2 Ml Syringe IV PUSH 2 mg BID PRN Administration Anxiety Ceftriaxone Sodium 1 gm in 50 mls @ 100 mls/hr 07/17/24 17:00 07/19/24 16:38 Rocephin 1 Gm/Ns 50 Ml IVPB 100 mls/hr Q24H RACQUEL Administration Dextrose 1,000 mls @ 50 mls/hr 07/18/24 13:48 Dextrose 10% IV CONT .Q20H PRN if PN is interrupted Amino Acids/Electrolytes/Dextrose 2,000 mls @ 80 mls/hr 07/18/24 16:00 07/19/24 16:33 Clinimix E 4.25%/5% Solution IV CONT 80 mls/hr .Q24H RACQUEL Administration Protocol Fat Emulsion Intravenous 250 mls @ 20 mls/hr 07/19/24 16:00 07/19/24 16:33 Lipids 20% IVPB 20 mls/hr Q24H RACQUEL Administration Levothyroxine Sodium 50 mcg 07/17/24 06:30 07/19/24 05:40 Levothyroxine Sodium Inj 100 Mcg/5 Ml Vial IV PUSH 50 mcg DAILY@0630 RACQUEL Administration Methylprednisolone Sodium Succinate 40 mg 07/17/24 00:00 07/19/24 12:24 Methylprednisolone Sod Succ 40 Mg Vial IV PUSH 40 mg Q6HR RACQUEL Administration Morphine Sulfate 2 mg 07/17/24 13:24 07/19/24 09:04 Morphine Sulfate (*Crx) 2 Mg/Ml Inj IV PUSH 2 mg Q4H PRN Administration Pain Rated 7-10 Ondansetron HCl 4 mg 07/16/24 17:01 Ondansetron Inj 4 Mg/2 Ml Vial IV PUSH Q4H PRN Nausea Pantoprazole Sodium 40 mg 07/19/24 21:00 Pantoprazole Sodium Iv 40 Mg Vial IV PUSH Q12HR [facility] Radiology Results: ITS Impressions Modified Barium Swallow 07/17/24 11:47 IMPRESSION: 1. Aspiration. 2. Please refer to the speech therapy report for recommendations. Labs Labs: Laboratory Results - last 24 hr 07/18/24 07/19/24 07/19/24 23:46 05:28 05:54 Sodium 136 L Potassium 3.2 L Chloride 100 Carbon Dioxide 32 H Anion Gap 4 BUN 24 H Creatinine 0.49 L Estim Creat Clear Calc 75 Estimated GFR > 60 Glucose 151 H POC Capillary Glucose 128 H 150 H Calcium 7.7 L Phosphorus 3.2 07/19/24 11:51 Sodium Potassium Chloride Carbon Dioxide Anion Gap BUN Creatinine Estim Creat Clear Calc Estimated GFR Glucose POC Capillary Glucose 155 H Calcium Phosphorus
[2024-07-19 18:52] LABS: Glucose Point of Care 148 mg/dl (65-105)
[2024-07-19 21:09] VITALS: BP 163/62; PULSE 75; RESP 18; TEMP 36.7; O2SAT 98
[2024-07-19 23:19] LABS: Glucose Point of Care 160 mg/dl (65-105)
[2024-07-20] VITALS (9 sets, daily range): BP systolic 123–159; BP diastolic 59–108; PULSE 87–97; RESP 14–28; TEMP 36.1–36.8; O2SAT 96–100
[2024-07-20] MEDS: methylPREDNISolone SOD SUCC 40 MG VIAL IV PUSH ×4 (00:21→17:34)
[2024-07-20] MEDS: LEVOTHYROXINE SODIUM INJ 100 MCG/5 ML VIAL 50 MCG IV PUSH (05:37)
[2024-07-20] MEDS: MORPHINE SULFATE (*CRX) 2 MG/ML INJ IV PUSH ×4 (05:45→17:34)
[2024-07-20 05:55] LABS: Hematocrit 41.4 % (37.0-47.0); Hemoglobin 13.4 g/dL (12.0-15.0); Mean Corpuscular HGB Conc 32.4 g/dl (32-36); Mean Corpuscular Hemoglobin 30.5 pg (26-34); Mean Corpuscular Volume 94.1 fl (80-100); Mean Platelet Volume 10.2 fl (7.4-10.4); Platelet Count Result 363 k/mm3 (150-375); Red Cell Distribution Width 13.4 % (11.5-14.5); White Blood Count 18.6 K/mm3 (4.5-10.0)
[2024-07-20 06:17] LABS: Alanine Aminotransferase 15 U/L (6-35); Albumin Level 3.1 g/dL (3.5-5.1); Alkaline Phosphatase 99 U/L (38-126); Anion Gap 11 mmol/L (4-12); Aspartate Amino Transferase 18 U/L (14-36); Bilirubin,Total 0.5 mg/dL (0.2-1.3); Blood Urea Nitrogen 24 mg/dL (7-17); Calcium 8.1 mg/dL (8.4-10.2); Carbon Dioxide 29 mmol/L (22-30); Chloride 97 mmol/L (98-107); Estimated CRCL calculation 77 ml/min; Estimated Glomerular Filt Rate > 60; Glucose 135 mg/dL (65-110); Magnesium 2.2 mg/dL (1.6-2.3); Phosphorus 3.3 mg/dL (2.5-4.5); Potassium 3.4 mmol/L (3.4-5.0); Sodium 137 mmol/L (137-145)
[2024-07-20 06:50] LABS: Band Neutrophils Percent 1 % (0-6); Lymphocytes Absolute Manual 1.11 K/mm3 (1.1-4.5); Lymphocytes Percent Manual 6 % (18-44); Monocytes Absolute Manual 1.48 K/mm3 (0.1-0.90); Monocytes Percent Manual 8 % (3-9); Neutrophils Absolute Manual 15.99 K/mm3 (1.7-7.2); Neutrophils Percent Manual 85 % (46-73); Total Cells Counted 100
[2024-07-20 06:51] LABS: Platelet Estimate Adequate (Adequate); Schistocytes None Seen
[2024-07-20] MEDS: diazePAM INJ (*CRX) 10 MG/2 ML SYRINGE 2 MG IV PUSH ×2 (07:24→16:04)
[2024-07-20 07:46] LABS: Glucose Point of Care 138 mg/dl (65-105)
[2024-07-20] MEDS: PANTOPRAZOLE SODIUM IV 40 MG VIAL IV PUSH ×2 (08:12→21:03)
--- NOTE | 2024-07-20 11:01 | P.PNAN_ITS ---
Anes - Initial Pre Proc Eval Procedure: Operation Date: 07/18/24 10:30 Proposed Procedures p Esophagogastroduodenoscopy - Damián Giordano MD Operation Date: 07/20/24 12:30 Proposed Procedures p Percutaneous Endoscopic Gastrostomy - Damián Giordano MD Date/Time: 07/20/24 11:01 Surgeon: TRINI Guerrero Pre Op Diagnosis: uti, dehydration, dysphagia Patient Data Age: 63 Gender: F Height: 1.57 m Weight: 51.8 kg Last Vital Signs Temp 36.8 C 07/20/24 06:00 Pulse 97 07/20/24 08:00 Resp 16 07/20/24 08:00 BP 159/85 H 07/20/24 08:00 Pulse Ox 98 07/20/24 08:18 O2 Del Method Room Air 07/20/24 08:18 FiO2 21 07/17/24 19:44 Allergies Allergy/AdvReac Type Severity Reaction Status Date / Time No Known Allergies Allergy Mild Verified 07/20/24 11:00 Home Medications ?Medication ?Instructions ?Recorded ?Confirmed ?Type atorvastatin 40 mg tablet 40 mg PO HS 07/05/20 07/16/24 History famotidine 20 mg tablet 20 mg PO BID PRN Acid Reflux 07/05/20 07/16/24 History fluticasone propionate 50 1 spray intranasal DAILY 07/05/20 07/16/24 History mcg/actuation nasal spray,suspension gabapentin 300 mg capsule 300 mg PO TID 07/05/20 07/16/24 History pantoprazole 40 mg tablet,delayed 40 mg PO DAILY 07/05/20 07/16/24 History release paroxetine HCl 40 mg tablet 40 mg PO DAILY 07/05/20 07/16/24 History trazodone 50 mg tablet 50 mg PO HS 07/05/20 07/16/24 History vitamin B complex 1 cap PO DAILY 12/11/20 07/16/24 History vitamin E 200 unit capsule 200 unit PO TID 12/11/20 07/16/24 History acetaminophen 500 mg tablet 1,000 mg (2 x 500 mg) PO Q8H PRN 12/15/20 07/16/24 Rx Pain #0 tabs cyclobenzaprine 5 mg tablet 5 mg PO TID PRN muscle spasm #20 07/17/22 07/16/24 Rx tabs hydroxyzine HCl 25 mg tablet 25 mg PO BID PRN anxiety 07/16/24 07/16/24 History ibuprofen 800 mg tablet 800 mg PO TID PRN pain 07/16/24 07/16/24 History levothyroxine 112 mcg tablet 112 mcg PO DAILY 07/16/24 07/16/24 History oxybutynin chloride 5 mg 5 mg PO DAILY 07/16/24 07/16/24 History tablet,extended release 24 hr Laboratory Tests 07/19/24 07/19/24 07/19/24 11:51 18:49 23:16 WBC RBC Hgb Hct MCV MCH MCHC RDW Plt Count MPV Immature Gran % (Auto) Neut % (Auto) Lymph % (Auto) [place] % (Auto) Eos % (Auto) Baso % (Auto) Lymph # (Auto) [place] # (Auto) Eos # (Auto) Baso # (Auto) Abs Immat Gran (auto) Absolute Neuts (auto) Absolute Nucleated RBC Total Counted Neutrophils % (Manual) Band Neutrophils % Lymphocytes % (Manual) Monocytes % (Manual) Nucleated RBC % Abs Neuts (Manual) Abs Lymphs (Manual) Abs Monocytes (Manual) Platelet Estimate Schistocytes Sodium Potassium Chloride Carbon Dioxide Anion Gap BUN Creatinine Estim Creat Clear Calc Estimated GFR Glucose POC Capillary Glucose 155 H mg/dl 148 H mg/dl 160 H mg/dl (65-105) (65-105) (65-105) Calcium Phosphorus Magnesium Total Bilirubin AST ALT Alkaline Phosphatase Total Protein Albumin 07/20/24 07/20/24 05:30 05:45 WBC 18.6 H K/mm3 (4.5-10.0) RBC 4.40 M/mm3 (4.2-5.4) Hgb 13.4 g/dL (12.0-15.0) Hct 41.4 % (37.0-47.0) MCV 94.1 fl (80-100) MCH 30.5 pg (26-34) MCHC 32.4 g/dl (32-36) RDW 13.4 % (11.5-14.5) Plt Count 363 k/mm3 (150-375) MPV 10.2 fl (7.4-10.4) Immature Gran % (Auto) Not Reportable Neut % (Auto) Not Reportable Lymph % (Auto) Not Reportable [place] % (Auto) Not Reportable Eos % (Auto) Not Reportable Baso % (Auto) Not Reportable Lymph # (Auto) Not Reportable [place] # (Auto) Not Reportable Eos # (Auto) Not Reportable Baso # (Auto) Not Reportable Abs Immat Gran (auto) Not Reportable Absolute Neuts (auto) Not Reportable Absolute Nucleated RBC Not Reportable Total Counted 100 Neutrophils % (Manual) 85 H % (46-73) Band Neutrophils % 1 % (0-6) Lymphocytes % (Manual) 6 L % (18-44) Monocytes % (Manual) 8 % (3-9) Nucleated RBC % Not Reportable Abs Neuts (Manual) 15.99 H K/mm3 (1.7-7.2) Abs Lymphs (Manual) 1.11 K/mm3 (1.1-4.5) Abs Monocytes (Manual) 1.48 H K/mm3 (0.1-0.90) Platelet Estimate Adequate (Adequate) Schistocytes None seen Sodium 137 mmol/L (137-145) Potassium 3.4 mmol/L (3.4-5.0) Chloride 97 L mmol/L (98-107) Carbon Dioxide 29 mmol/L (22-30) Anion Gap 11 mmol/L (4-12) BUN 24 H mg/dL (7-17) Creatinine 0.48 L mg/dL (0.7-1.0) Estim Creat Clear Calc 77 ml/min Estimated GFR > 60 (59 - ) Glucose 135 H mg/dL (65-110) POC Capillary Glucose 138 H mg/dl (65-105) Calcium 8.1 L mg/dL (8.4-10.2) Phosphorus 3.3 mg/dL (2.5-4.5) Magnesium 2.2 mg/dL (1.6-2.3) Total Bilirubin 0.5 mg/dL (0.2-1.3) AST 18 U/L (14-36) ALT 15 U/L (6-35) Alkaline Phosphatase 99 U/L (38-126) Total Protein 6.0 L g/dL (6.3-8.2) Albumin 3.1 L g/dL (3.5-5.1) Patient hx anesthesia problems: none Family hx anesthesia problems: none Results Review: All pre-operative results and documents have been reviewed as part of the pre- operative evaluation. 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 Code status: Full code. Years smoked: 46 Smoking status: Current every day smoker Tobacco type: cigarettes Second hand tobacco smoke exposure: Yes Alcohol intake: never Substance use: former Do You Feel Safe in your Home?: Yes Lack of Transportation: No Lack of Food: Never True Current Housing: I Have Housing Concerned About Future Housing: No Difficulty Paying Gas/Electric Bills: No Difficulty Paying for Meds: No Currently Unemployed: No Education: High School Diploma/GED Difficulty w/ Childcare or Family Care: No Spiritual care concerns: No Anes - Eval Final PreProcedure Day of Procedure 07/20/24 11:01 Patient weight: normal Heart: regular rate and rhythm Lungs: clear to auscultation Airway: Mallampati scale class II Neurological: alert and oriented Last oral intake: >/= 8 hours ASA classification: III Emergent: no Anesthetic plan: proceed Anesthesia type and monitoring: general GIVS and standard monitoring Results Review: All pre-operative results and documents have been reviewed as part of the pre- operative evaluation. Informed Consent: The patient's anesthetic plan and its attendant risks and benefits were discussed with the patient/family/POA. Questions were solicited and answers provided to the satisfaction of the patient/family/POA.
[2024-07-20] MEDS: LACTATED RINGERS 1,000 ML 150 ML IV CONT (11:13)
[2024-07-20] MEDS: ceFAZolin 1 GM/NS 50 ML 1 GM/50 ML BAG IVPB (11:14)
--- NOTE | 2024-07-20 13:53 | P.PNIM_ITS ---
Progress Note: A&P Assessment and Plan (1) Dysphagia: Qualifiers: Dysphagia type: esophageal phase Qualified Code(s): R13.19 - Other dysphagia Code(s): R13.10 - Dysphagia, unspecified Status: Acute Assessment and Plan: * GI consulted * Pt failed MBS * EGD today * possible PEG tube tomorrow * PPN for now * Secondary to side effect of Chemotherapeutic agent. * Continue Protonix * Continue Solumedrol for the appearance of inflammation around the larynx. 07/20/24: * Continues dysphagia. * Continued hoarseness. * PEG to be placed today. (2) Dehydration: Code(s): E86.0 - Dehydration Status: Acute Assessment and Plan: * PPN ordered 07/20/24: * Continue TPN until TF starts tonight at 1900. * TF orders of Jevity 1.5 at 20 ml/hr to start and advance hourly by 10 ml to goal of 50 ml/hr. * Free water flushes of 100 ml every 4 hours. (3) Laryngitis: Code(s): J04.0 - Acute laryngitis Status: Acute Assessment and Plan: * See Above. (4) Urinary tract infection: Code(s): N39.0 - Urinary tract infection, site not specified Status: Acute Assessment and Plan: * Continue Rocephin. * Urine Culture pending. 07/20/24: * Urine culture final is with normal growth of aide. * Stop Abx. (5) Thyroid cancer: Code(s): C73 - Malignant neoplasm of thyroid gland Status: Acute Assessment and Plan: * See #1. * Current therapeutic agent of Lenvatinib causes current symptoms. patient states that she has not been taking lately due to her inability to swallow pills * recommend following up with her oncologist * IV Synthroid 07/20/24; * See current treatment. (6) Malnutrition due to starvation: Code(s): E46 - Unspecified protein-calorie malnutrition; T73.0XXS - Starvation, sequela Status: Acute Assessment and Plan: Severe Protein Calorie Malnutrition as related to inadequate protein energy intake with increased protein energy needs in setting of chronic disease (cancer) as evidenced by minimal oral intake for > 1-2 months with failed MBS on 07/17 recommending NPO; significant weight loss of 20% (32 ibs) 6 months; severe muscle wasting (temporalis) and subcutaneous fat loss (orbital fat pads). PPN Time Spent With Patient Time with patient: 15 - 25 minutes Subjective Date/time seen: 07/20/24 0940 Interval history: Pt was examined at the bedside this AM in interval assessment and she appears very anxious. She is set to have a repeat EGD today with PEG placement. She remains currently on TPN. She states she is having difficulty with pain because of her anxiety degree. No other new s/s or complaints. Review of Systems Review of Systems: All systems reviewed & are unremarkable except as noted in HPI and below Exam Narrative: General: Mildly ill-appearing female sitting up in bed. Appears emaciated. HEENT: PERRL, EOMI. Dry mucous membranes. Voice is hoarse. Patent Oropharynx Neck: Supple. No lymphadenopathy or stridor. Respiratory: Lungs are clear to auscultation bilaterally. Cardiovascular: Regular rate and rhythm with S1-S2. Gastrointestinal: Abdomen is soft, flat, nontender, and nondistended with positive bowel sounds. Skin: Warm and dry. Extremities: No cyanosis, clubbing, or edema. Radial and pedal pulses intact. Neurological: Alert. Cranial nerves 2-12 are grossly intact. No gross focal deficits to casual conversation. Psychiatric: Pleasant and cooperative with normal mood and flat affect. Objective Data Vital Signs Vital Signs: Vital Signs - 24 hr 07/19/24 14:00 07/19/24 21:09 07/20/24 06:00 Temperature 98.0 F 98.1 F 98.2 F Pulse Rate 72 75 89 Respiratory Rate 16 18 14 Blood Pressure 128/52 L 163/62 H 149/84 H Pulse Oximetry 99 98 98 Oxygen Delivery Oxygen Flow Rate 07/20/24 08:00 07/20/24 08:18 07/20/24 11:02 Temperature 97.2 F L Pulse Rate 97 90 Respiratory Rate 16 20 Blood Pressure 159/85 H 143/59 H Pulse Oximetry 96 98 98 Oxygen Delivery Room Air Room Air Oxygen Flow Rate 07/20/24 12:20 07/20/24 12:30 07/20/24 12:40 Temperature Pulse Rate 90 90 87 Respiratory Rate 25 H 28 H 22 H Blood Pressure 123/108 H 149/72 H 145/72 H Pulse Oximetry 100 100 100 Oxygen Delivery Nasal Cannula Nasal Cannula Room Air Oxygen Flow Rate 4 2 Intake/Output Intake/Output: Intake & Output 07/17/24 07/18/24 07/19/24 07/20/24 23:59 23:59 23:59 23:59 Intake Total 2490 550 2354 880.0 Output Total 1750 1600 1000 1900 Balance 740 -1050 1354 -1020.0 Meds/Results Medications: Active Medications Generic Name Dose Route Start Last Admin Trade Name Freq PRN Reason Stop Dose Admin Diazepam 2 mg 07/20/24 13:23 Diazepam Inj (*Crx) 10 Mg/2 Ml Syringe IV PUSH TID PRN Anxiety Ceftriaxone Sodium 1 gm in 50 mls @ 100 mls/hr 07/17/24 17:00 07/19/24 17:08 Rocephin 1 Gm/Ns 50 Ml IVPB Infused Q24H RACQUEL Infusion Dextrose 1,000 mls @ 50 mls/hr 07/18/24 13:48 Dextrose 10% IV CONT .Q20H PRN if PN is interrupted Amino Acids/Electrolytes/Dextrose 2,000 mls @ 80 mls/hr 07/18/24 16:00 07/19/24 16:33 Clinimix E 4.25%/5% Solution IV CONT 07/20/24 15:59 80 mls/hr .Q24H RACQUEL Administration Protocol Fat Emulsion Intravenous 250 mls @ 20 mls/hr 07/19/24 16:00 07/19/24 16:33 Lipids 20% IVPB 20 mls/hr Q24H RACQUEL Administration Levothyroxine Sodium 50 mcg 07/17/24 06:30 07/20/24 05:37 Levothyroxine Sodium Inj 100 Mcg/5 Ml Vial IV PUSH 50 mcg DAILY@0630 RACQUEL Administration Methylprednisolone Sodium Succinate 40 mg 07/17/24 00:00 07/20/24 13:15 Methylprednisolone Sod Succ 40 Mg Vial IV PUSH 40 mg Q6HR RACQUEL Administration Morphine Sulfate 2 mg 07/17/24 13:24 07/20/24 13:14 Morphine Sulfate (*Crx) 2 Mg/Ml Inj IV PUSH 2 mg Q4H PRN Administration Pain Rated 7-10 Ondansetron HCl 4 mg 07/16/24 17:01 Ondansetron Inj 4 Mg/2 Ml Vial IV PUSH Q4H PRN Nausea Pantoprazole Sodium 40 mg 07/19/24 21:00 07/20/24 08:12 Pantoprazole Sodium Iv 40 Mg Vial IV PUSH 40 mg Q12HR RACQUEL Administration Radiology Results: ITS Impressions Modified Barium Swallow 07/17/24 11:47 IMPRESSION: 1. Aspiration. 2. Please refer to the speech therapy report for recommendations. Labs Labs: Laboratory Results - last 24 hr 07/19/24 07/19/24 07/20/24 18:49 23:16 05:30 WBC 18.6 H RBC 4.40 Hgb 13.4 Hct 41.4 MCV 94.1 MCH 30.5 MCHC 32.4 RDW 13.4 Plt Count 363 MPV 10.2 Immature Gran % (Auto) Not Reportable Neut % (Auto) Not Reportable Lymph % (Auto) Not Reportable [place] % (Auto) Not Reportable Eos % (Auto) Not Reportable Baso % (Auto) Not Reportable Lymph # (Auto) Not Reportable [place] # (Auto) Not Reportable Eos # (Auto) Not Reportable Baso # (Auto) Not Reportable Abs Immat Gran (auto) Not Reportable Absolute Neuts (auto) Not Reportable Absolute Nucleated RBC Not Reportable Total Counted 100 Neutrophils % (Manual) 85 H Band Neutrophils % 1 Lymphocytes % (Manual) 6 L Monocytes % (Manual) 8 Nucleated RBC % Not Reportable Abs Neuts (Manual) 15.99 H Abs Lymphs (Manual) 1.11 Abs Monocytes (Manual) 1.48 H Platelet Estimate Adequate Schistocytes None seen Sodium 137 Potassium 3.4 Chloride 97 L Carbon Dioxide 29 Anion Gap 11 BUN 24 H Creatinine 0.48 L Estim Creat Clear Calc 77 Estimated GFR > 60 Glucose 135 H POC Capillary Glucose 148 H 160 H Calcium 8.1 L Phosphorus 3.3 Magnesium 2.2 Total Bilirubin 0.5 AST 18 ALT 15 Alkaline Phosphatase 99 Total Protein 6.0 L Albumin 3.1 L 07/20/24 05:45 WBC RBC Hgb Hct MCV MCH MCHC RDW Plt Count MPV Immature Gran % (Auto) Neut % (Auto) Lymph % (Auto) [place] % (Auto) Eos % (Auto) Baso % (Auto) Lymph # (Auto) [place] # (Auto) Eos # (Auto) Baso # (Auto) Abs Immat Gran (auto) Absolute Neuts (auto) Absolute Nucleated RBC Total Counted Neutrophils % (Manual) Band Neutrophils % Lymphocytes % (Manual) Monocytes % (Manual) Nucleated RBC % Abs Neuts (Manual) Abs Lymphs (Manual) Abs Monocytes (Manual) Platelet Estimate Schistocytes Sodium Potassium Chloride Carbon Dioxide Anion Gap BUN Creatinine Estim Creat Clear Calc Estimated GFR Glucose POC Capillary Glucose 138 H Calcium Phosphorus Magnesium Total Bilirubin AST ALT Alkaline Phosphatase Total Protein Albumin Quality VTE Prophylaxis VTE prophylaxis: mechanical ordered
--- NOTE | 2024-07-20 13:58 | PCDIET ---
Patient received G-tube today for nutrition. Tube feeding orders are for Jevity 1.5 at 20 ml/hr advance by 10 ml q 4 hours to goal rate at 50 ml/hr. Recommendations for [place] tube feeding orders: 300 ml 4 x daily of Jevity 1.5 with water flush of 100 ml after feedings. Tube feedings providing 1800 kcal/77 gm protein/912 ml water. Meeting 96% kcal needs at 35 kcal/kg and 100% protein needs at 1.0-1.2 gm/kg. Agree with diet orders. Will continue to monitor every Wednesday and Wednesday.
[2024-07-20] MEDS: CYCLOBENZAPRINE HCL 5 MG TABLET FEED TUBE (19:18)
[2024-07-20] MEDS: GABAPENTIN 300 MG CAPSULE FEED TUBE (19:18)
[2024-07-20] MEDS: ATORVASTATIN 40 MG TABLET FEED TUBE (21:03)
[2024-07-20] MEDS: hydrOXYzine HCL 25 MG TABLET FEED TUBE (21:03)
[2024-07-20] MEDS: traZODone HCL 50 MG TABLET FEED TUBE (21:03)
[2024-07-21] MEDS: methylPREDNISolone SOD SUCC 40 MG VIAL IV PUSH ×2 (00:10→05:44)
[2024-07-21 00:15] LABS: Glucose Point of Care 116 mg/dl (65-105)
[2024-07-21] MEDS: diazePAM INJ (*CRX) 10 MG/2 ML SYRINGE 2 MG IV PUSH (04:00)
[2024-07-21 05:06] VITALS: BP 131/68; PULSE 102; RESP 16; TEMP 36.4; O2SAT 100
[2024-07-21] MEDS: LEVOTHYROXINE SODIUM 112 MCG TABLET FEED TUBE (05:44)
[2024-07-21 06:15] LABS: Blood Urea Nitrogen 30 mg/dL (7-17)
[2024-07-21 06:16] LABS: Calcium 7.7 mg/dL (8.4-10.2); Chloride 97 mmol/L (98-107); Estimated CRCL calculation 63 ml/min; Estimated Glomerular Filt Rate > 60; Glucose 143 mg/dL (65-110); Phosphorus 3.6 mg/dL (2.5-4.5); Potassium 4.1 mmol/L (3.4-5.0); Sodium 137 mmol/L (137-145)
[2024-07-21 06:26] LABS: Anion Gap 5 mmol/L (4-12); Carbon Dioxide 35 mmol/L (22-30)
[2024-07-21] MEDS: hydrOXYzine HCL 25 MG TABLET FEED TUBE ×2 (07:35→17:12)
[2024-07-21] MEDS: ACETAMINOPHEN 500 MG TABLET 1000 MG FEED TUBE ×2 (07:35→17:12)
[2024-07-21] MEDS: PARoxetine 20 MG TABLET 40 MG FEED TUBE (07:35)
[2024-07-21] MEDS: CYCLOBENZAPRINE HCL 5 MG TABLET FEED TUBE ×3 (07:35→17:12)
[2024-07-21] MEDS: GABAPENTIN 300 MG CAPSULE FEED TUBE ×3 (07:35→17:12)
[2024-07-21 08:50] LABS: Glucose Point of Care 171 mg/dl (65-105)
--- NOTE | 2024-07-21 10:35 | P.PNIM_ITS ---
Progress Note: A&P Assessment and Plan (1) Dysphagia: Qualifiers: Dysphagia type: esophageal phase Qualified Code(s): R13.19 - Other dysphagia Code(s): R13.10 - Dysphagia, unspecified Status: Acute Assessment and Plan: * GI consulted * Pt failed MBS * EGD today * possible PEG tube tomorrow * PPN for now * Secondary to side effect of Chemotherapeutic agent. * Continue Protonix * Continue Solumedrol for the appearance of inflammation around the larynx. 07/20/24: * Continues dysphagia. * Continued hoarseness. * PEG to be placed today. 07/21/24: * PEG is placed and is receiving continuous feeds. * Tolerating well and will switch to bolus feeds at home. * Will return demonstrate today. Will need clarification from dietary for bolus orders. * Starting on Prednisone taper per Feeding Tube. (2) Dehydration: Code(s): E86.0 - Dehydration Status: Acute Assessment and Plan: * PPN ordered 07/20/24: * Continue TPN until TF starts tonight at 1900. * TF orders of Jevity 1.5 at 20 ml/hr to start and advance hourly by 10 ml to goal of 50 ml/hr. * Free water flushes of 100 ml every 4 hours. 07/21/24: * Labs are stable. * Bolus feeds will be Jevity 1.5 - 300 ml four times daily and water flush of 100 ml after each feed. (3) Laryngitis: Code(s): J04.0 - Acute laryngitis Status: Acute Assessment and Plan: * See Above. * Switching Methylprednisolone IV to Prednisone taper per TF. (4) Urinary tract infection: Code(s): N39.0 - Urinary tract infection, site not specified Status: Resolved Assessment and Plan: * Continue Rocephin. * Urine Culture pending. 07/20/24: * Urine culture final is with normal growth of aide. * Stop Abx. (5) Thyroid cancer: Code(s): C73 - Malignant neoplasm of thyroid gland Status: Acute Assessment and Plan: * See #1. * Current therapeutic agent of Lenvatinib causes current symptoms. patient states that she has not been taking lately due to her inability to swallow pills * recommend following up with her oncologist * IV Synthroid 07/20/24; * See current treatment. * IV meds switched to po. 07/21/24: * To continue treatment with her Oncologist after discharge. (6) Malnutrition due to starvation: Code(s): E46 - Unspecified protein-calorie malnutrition; T73.0XXS - Starvation, sequela Status: Acute Assessment and Plan: Severe Protein Calorie Malnutrition as related to inadequate protein energy intake with increased protein energy needs in setting of chronic disease (cancer) as evidenced by minimal oral intake for > 1-2 months with failed MBS on 07/17 recommending NPO; significant weight loss of 20% (32 ibs) 6 months; severe muscle wasting (temporalis) and subcutaneous fat loss (orbital fat pads). PPN Plan Stop all IV meds today and have pt return demonstrate the bolus feeds then plan for discharge tomorrow. Time Spent With Patient Time with patient: 25 - 35 minutes Subjective Date/time seen: 07/21/24 10:20 Interval history: This pt was examined at the bedside in interval assessment after receiving a Feeding tube yesterday. She is tired right now and does not appear to have any distress. She last received IV valium at 0400 this AM. Today her IV Morphine and Valium are going to be discontinued and she will need to return demonstration today and if she does well, she will be able to discharge likely tomorrow. Pt has tolerated feedings thus far. NO other acute complaints or symptoms. Review of Systems Review of Systems: All systems reviewed & are unremarkable except as noted in HPI and below Exam Narrative: General: Mildly ill-appearing female sitting up in bed. Appears emaciated. HEENT: PERRL, EOMI. Dry mucous membranes. Voice is hoarse. Patent Oropharynx Neck: Supple. No lymphadenopathy or stridor. Respiratory: Lungs are clear to auscultation bilaterally. Cardiovascular: Regular rate and rhythm with S1-S2. Gastrointestinal: Abdomen is soft, flat, nontender, and nondistended with positive bowel sounds. Feeding tube is present and pt is receiving continuous feeding at this time. Skin: Warm and dry. Extremities: No cyanosis, clubbing, or edema. Radial and pedal pulses intact. Neurological: Alert. Cranial nerves 2-12 are grossly intact. No gross focal deficits to casual conversation. Psychiatric: Pleasant and cooperative with normal mood and flat affect. Objective Data Vital Signs Vital Signs: Vital Signs - 24 hr 07/20/24 11:02 07/20/24 12:20 07/20/24 12:30 Temperature 97.2 F L Pulse Rate 90 90 90 Respiratory Rate 20 25 H 28 H Blood Pressure 143/59 H 123/108 H 149/72 H Pulse Oximetry 98 100 100 Oxygen Delivery Room Air Nasal Cannula Nasal Cannula Oxygen Flow Rate 4 2 07/20/24 12:40 07/20/24 14:00 07/20/24 20:00 Temperature 97.0 F L Pulse Rate 87 94 Respiratory Rate 22 H 16 Blood Pressure 145/72 H 156/82 H Pulse Oximetry 100 96 Oxygen Delivery Room Air Room Air Oxygen Flow Rate 07/20/24 21:04 07/21/24 05:06 Temperature 97 F L 97.6 F Pulse Rate 97 102 H Respiratory Rate 18 16 Blood Pressure 136/73 131/68 Pulse Oximetry 100 100 Oxygen Delivery Oxygen Flow Rate Intake/Output Intake/Output: Intake & Output 07/18/24 07/19/24 07/20/24 07/21/24 23:59 23:59 23:59 23:59 Intake Total 550 2354 2865.0 50 Output Total 1600 1000 2650 150 Balance -1050 1354 215.0 -100 Meds/Results Medications: Active Medications Generic Name Dose Route Start Last Admin Trade Name Freq PRN Reason Stop Dose Admin Acetaminophen 1,000 mg 07/20/24 15:41 07/21/24 07:35 Acetaminophen 500 Mg Tablet FEED TUBE 1,000 mg Q8H PRN Administration Pain Rated 1-3 Atorvastatin Calcium 40 mg 07/20/24 21:00 07/20/24 21:03 Atorvastatin 40 Mg Tablet FEED TUBE 40 mg HS RACQUEL Administration Cyclobenzaprine HCl 5 mg 07/20/24 15:41 07/21/24 07:35 Cyclobenzaprine Hcl 5 Mg Tablet FEED TUBE 5 mg TID PRN Administration muscle spasm Diazepam 2 mg 07/20/24 13:23 07/21/24 04:00 Diazepam Inj (*Crx) 10 Mg/2 Ml Syringe IV PUSH 2 mg TID PRN Administration Anxiety Famotidine 20 mg 07/21/24 09:00 Famotidine 20 Mg Tablet FEED TUBE BID PRN Acid Reflux Fluticasone Propionate 1 spray 07/21/24 09:00 Fluticasone Propionate 0.05% Na Spr 16 Gm Btl (*Bkc) NASAL DAILY RACQUEL Gabapentin 300 mg 07/20/24 17:00 07/21/24 07:35 Gabapentin 300 Mg Capsule FEED TUBE 300 mg TID RACQUEL Administration Hydroxyzine HCl 25 mg 07/20/24 15:41 07/21/24 07:35 Hydroxyzine Hcl 25 Mg Tablet FEED TUBE 25 mg BID PRN Administration anxiety Dextrose 1,000 mls @ 50 mls/hr 07/18/24 13:48 Dextrose 10% IV CONT .Q20H PRN if PN is interrupted Levothyroxine Sodium 112 mcg 07/21/24 06:00 07/21/24 05:44 Levothyroxine Sodium 112 Mcg Tablet FEED TUBE 112 mcg DAILY@0600 RACQUEL Administration Methylprednisolone Sodium Succinate 40 mg 07/17/24 00:00 07/21/24 05:44 Methylprednisolone Sod Succ 40 Mg Vial IV PUSH 40 mg Q6HR RACQUEL Administration Morphine Sulfate 2 mg 07/17/24 13:24 07/20/24 17:34 Morphine Sulfate (*Crx) 2 Mg/Ml Inj IV PUSH 2 mg Q4H PRN Administration Pain Rated 7-10 Ondansetron HCl 4 mg 07/16/24 17:01 Ondansetron Inj 4 Mg/2 Ml Vial IV PUSH Q4H PRN Nausea Paroxetine HCl 40 mg 07/21/24 09:00 07/21/24 07:35 Paroxetine 20 Mg Tablet FEED TUBE 40 mg DAILY RACQUEL Administration Trazodone HCl 50 mg 07/20/24 21:00 07/20/24 21:03 Trazodone Hcl 50 Mg Tablet FEED TUBE 50 mg HS RACQUEL Administration Radiology Results: ITS Impressions Modified Barium Swallow 07/17/24 11:47 IMPRESSION: 1. Aspiration. 2. Please refer to the speech therapy report for recommendations. Labs Labs: Laboratory Results - last 24 hr 07/21/24 07/21/24 07/21/24 00:10 05:41 08:48 Sodium 137 Potassium 4.1 Chloride 97 L Carbon Dioxide 35 H Anion Gap 5 BUN 30 H Creatinine 0.56 L Estim Creat Clear Calc 63 Estimated GFR > 60 Glucose 143 H POC Capillary Glucose 116 H 171 H Calcium 7.7 L Phosphorus 3.6 Quality VTE Prophylaxis VTE prophylaxis: mechanical ordered
--- NOTE | 2024-07-21 11:21 | PCNFU ---
Nutrition Follow-Up Complete: Severe Protein Calorie Malnutrition as related to inadequate protein energy intake with increased protein energy needs in setting of chronic disease (cancer) as evidenced by minimal oral intake for > 1-2 months with failed MBS on 07/17 recommending NPO; significant weight loss of 20% (32 ibs) 6 months; severe muscle wasting (temporalis) and subcutaneous fat loss (orbital fat pads). goal: Meet estimated nutritional needs. Patient is progressing towards goal. We will continue current goal. Pt current nutrition is Jevity 1.5 at 50 ml/hr. Nutrition recommendation: bolus tube feedings 300 ml 4 x daily of Jevity 1.5 with free water flush 100 ml after feedings. Last recorded weight is 47.1 kg. Bowel Motility: +Bm reported 07/17 Labs Reviewed: Glu 143, BUN 30, Cr 0.56 Meds Noted: Lipitor, Solu Medrol Skin: WNL Additional Notes: Patient had G tube placed 07/20. Tube feedings are at goal rate of 50 ml/hr of Jevity 1.5 and being tolerated. Tube feedings providing 1650 kcal/70 gm protein/836 ml water. Flush 100 ml q 4 hours. Plans for bolus feedings at home. Agree with diet orders. Will monitor weight, labs, skin, diet orders, meds every Wednesday and Wednesday.
--- NOTE | 2024-07-21 13:53 | WPDGIPROGNO ---
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: Code(s): T66.XXXA - Radiation sickness, unspecified, initial encounter; J39.2 - Other diseases of pharynx Status: Acute Assessment and Plan: s/p peg placement on tube feeding she will need to follow-up with ent and her surgeon also will need pain meds as needed will follow-up as needed (2) Dysphagia: Qualifiers: Dysphagia type: esophageal phase Qualified Code(s): R13.19 - Other dysphagia Code(s): R13.10 - Dysphagia, unspecified Status: Acute (3) GERD (gastroesophageal reflux disease): Qualifiers: Esophagitis presence: esophagitis presence not specified Qualified Code(s): K21.9 - Gastro-esophageal reflux disease without esophagitis Code(s): K21.9 - Gastro-esophageal reflux disease without esophagitis Status: Acute Assessment and Plan: ppi daily (4) Malnutrition due to starvation: Code(s): E46 - Unspecified protein-calorie malnutrition; T73.0XXS - Starvation, sequela Status: Acute Assessment and Plan: on tube feeding MBS c/w aspiration (5) Thyroid cancer: Code(s): C73 - Malignant neoplasm of thyroid gland Status: Acute (6) History of thyroidectomy: Code(s): E89.0 - Postprocedural hypothyroidism Status: Acute Subjective Date/time seen: 07/21/24 13:53 Interval history: peg placed yesterday and received tube feeding she is just very anxious and pain in different sites Review of Systems Review of Systems: All systems reviewed & are unremarkable except as noted in HPI and below Exam Narrative: General: Mildly ill-appearing female sitting up in bed. Very anxious HEENT: PERRL, EOMI. Dry mucous membranes. Voice is hoarse. Neck: Supple. Respiratory: Lungs are clear to auscultation bilaterally. Cardiovascular: Regular rate and rhythm with S1-S2. Gastrointestinal: Abdomen is soft, flat, and nondistended with positive bowel sounds. PEG in place Skin: Warm and dry. Extremities: No cyanosis, clubbing, or edema. Neurological: Alert. No gross focal deficits to casual conversation. Psychiatric: anxious Objective Data Vital Signs Vital Signs: Vital Signs - 24 hr 07/20/24 14:00 07/20/24 20:00 07/20/24 21:04 Temperature 97.0 F L 97 F L Pulse Rate 94 97 Respiratory Rate 16 18 Blood Pressure 156/82 H 136/73 Pulse Oximetry 96 100 Oxygen Delivery Room Air 07/21/24 05:06 07/21/24 07:35 Temperature 97.6 F Pulse Rate 102 H Respiratory Rate 16 Blood Pressure 131/68 Pulse Oximetry 100 Oxygen Delivery Room Air Intake/Output Intake/Output: Intake & Output 07/18/24 07/19/24 07/20/24 07/21/24 23:59 23:59 23:59 23:59 Intake Total 550 2354 2865.0 50 Output Total 1600 1000 2650 150 Balance -1050 1354 215.0 -100 Meds/Results Medications: Active Medications Generic Name Dose Route Start Last Admin Trade Name Freq PRN Reason Stop Dose Admin Acetaminophen 1,000 mg 07/20/24 15:41 07/21/24 07:35 Acetaminophen 500 Mg Tablet FEED TUBE 1,000 mg Q8H PRN Administration Pain Rated 1-3 Atorvastatin Calcium 40 mg 07/20/24 21:00 07/20/24 21:03 Atorvastatin 40 Mg Tablet FEED TUBE 40 mg HS RACQUEL Administration Cyclobenzaprine HCl 5 mg 07/20/24 15:41 07/21/24 12:46 Cyclobenzaprine Hcl 5 Mg Tablet FEED TUBE 5 mg TID PRN Administration muscle spasm Famotidine 20 mg 07/21/24 09:00 Famotidine 20 Mg Tablet FEED TUBE BID PRN Acid Reflux Fluticasone Propionate 1 spray 07/21/24 09:00 07/21/24 07:35 Fluticasone Propionate 0.05% Na Spr 16 Gm Btl (*Bkc) NASAL Not Given DAILY RACQUEL Gabapentin 300 mg 07/20/24 17:00 07/21/24 12:46 Gabapentin 300 Mg Capsule FEED TUBE 300 mg TID RACQUEL Administration Hydroxyzine HCl 25 mg 07/20/24 15:41 07/21/24 07:35 Hydroxyzine Hcl 25 Mg Tablet FEED TUBE 25 mg BID PRN Administration anxiety Dextrose 1,000 mls @ 50 mls/hr 07/18/24 13:48 Dextrose 10% IV CONT .Q20H PRN if PN is interrupted Levothyroxine Sodium 112 mcg 07/21/24 06:00 07/21/24 05:44 Levothyroxine Sodium 112 Mcg Tablet FEED TUBE 112 mcg DAILY@0600 RACQUEL Administration Paroxetine HCl 40 mg 07/21/24 09:00 07/21/24 07:35 Paroxetine 20 Mg Tablet FEED TUBE 40 mg DAILY RACQUEL Administration Prednisone 40 mg 07/22/24 08:00 Prednisone 10 Mg Tablet FEED TUBE 08/03/24 07:59 DAILY@0800 RACQUEL Taper Trazodone HCl 50 mg 07/20/24 21:00 07/20/24 21:03 Trazodone Hcl 50 Mg Tablet FEED TUBE 50 mg HS RACQUEL Administration Radiology Results: ITS Impressions Modified Barium Swallow 07/17/24 11:47 IMPRESSION: 1. Aspiration. 2. Please refer to the speech therapy report for recommendations. Labs Labs: Laboratory Results - last 24 hr 07/21/24 07/21/24 07/21/24 00:10 05:41 08:48 Sodium 137 Potassium 4.1 Chloride 97 L Carbon Dioxide 35 H Anion Gap 5 BUN 30 H Creatinine 0.56 L Estim Creat Clear Calc 63 Estimated GFR > 60 Glucose 143 H POC Capillary Glucose 116 H 171 H Calcium 7.7 L Phosphorus 3.6
[2024-07-21 14:06] VITALS: BP 148/59; PULSE 106; RESP 20; TEMP 36.7; O2SAT 96
[2024-07-21] MEDS: HYDROcodone/acetaminophen (*CRX) 7.5-325 MG TABLET 1 TAB FEED TUBE (15:06)
[2024-07-21 16:40] LABS: Glucose Point of Care 164 mg/dl (65-105)
[2024-07-21] MEDS: oxyCODONE/ACETAMINOPHEN (*CRX) 5-325 MG TABLET 1 TABLET PO (18:40)
[2024-07-21] MEDS: FAMOTIDINE 20 MG TABLET FEED TUBE (18:40)
[2024-07-21 19:58] VITALS: BP 110/51; PULSE 95; RESP 18; TEMP 37.1; O2SAT 97
[2024-07-21] MEDS: ATORVASTATIN 40 MG TABLET FEED TUBE (20:46)
[2024-07-21] MEDS: traZODone HCL 50 MG TABLET FEED TUBE (20:46)
[2024-07-22] VITALS (15 sets, daily range): BP systolic 103–175; BP diastolic 45–70; PULSE 104–121; RESP 12–34; TEMP 35.7–36.5; O2SAT 86–97
--- NOTE | 2024-07-22 | CONSULT_PTH ---
PATIENT: Brisa Walters LOC: ANHICU U#:[id number] AGE/SX: 63/F ROOM: [facility] [place] RE07/18/[address]: Nikia Chawla APRN : 1960 BED: 2 DIS: 07/22/2024 SPEC #: [id number] RECD: 07/22/24 13:59 STATUS: SOUT[place] REQ #: [id number] RENZO: 07/22/24 00:[address]: Nikia Chawla DEPT: [facility] Consult RECD BY: Jackie Borrero MLT, ([facility]) ENTERED: 07/22/24 14:00 SP TYPE: Consult OTHR DR: Steffany Rhoades MD PHYSICIAN NOT ON STAFF Fabian Suarez MD Tissues: A - Peripheral Smear Procedures: Hematology Consult
[2024-07-22] MEDS: ACETAMINOPHEN 500 MG TABLET 1000 MG FEED TUBE ×2 (01:26→08:47)
[2024-07-22 01:31] LABS: Glucose Point of Care 120 mg/dl (65-105)
[2024-07-22] MEDS: LEVOTHYROXINE SODIUM 112 MCG TABLET FEED TUBE (05:42)
[2024-07-22 06:10] LABS: Anion Gap 11 mmol/L (4-12); Blood Urea Nitrogen 59 mg/dL (7-17); Calcium 7.8 mg/dL (8.4-10.2); Carbon Dioxide 29 mmol/L (22-30); Chloride 97 mmol/L (98-107); Estimated CRCL calculation 42 ml/min; Estimated Glomerular Filt Rate > 60; Glucose 112 mg/dL (65-110); Phosphorus 2.6 mg/dL (2.5-4.5); Potassium 3.1 mmol/L (3.4-5.0); Sodium 137 mmol/L (137-145)
[2024-07-22] MEDS: GABAPENTIN 300 MG CAPSULE FEED TUBE ×2 (08:46→12:59)
[2024-07-22] MEDS: PARoxetine 20 MG TABLET 40 MG FEED TUBE (08:46)
[2024-07-22] MEDS: hydrOXYzine HCL 25 MG TABLET FEED TUBE (08:46)
[2024-07-22] MEDS: CYCLOBENZAPRINE HCL 5 MG TABLET FEED TUBE ×2 (08:46→13:06)
[2024-07-22] MEDS: predniSONE 10 MG TABLET 40 MG FEED TUBE (08:46)
--- NOTE | 2024-07-22 09:55 | P.PNIM_ITS ---
Progress Note: A&P Assessment and Plan (1) Severe sepsis: Code(s): A41.9 - Sepsis, unspecified organism; R65.20 - Severe sepsis without septic shock Status: Acute Assessment and Plan: HAP with risk for aspiration. Lactate sent and elevated to 5.5 today. Visibly tachypneic on exam with coarse lungs. Immune suppressed with steroids and chemotherapy (lenvatinib). On exam lungs coarse, denies dysuria. Recent UA 07/16 looked positive but culture negative. VBG showed respiratory alkalosis in the setting of tachypnea --Empiric Cefepime, Flagyl, Vancomycin --Blood cultures x2 --Repeat UA/Culture --Sputum culture, reporting productive yellow --CT CAP today. Also rule out PE with significant tachypnea --Repeat lactate and VBG in AM --Move to IMU if hemodynamic changes --NS bolus, 500ml x1 --Monitor on tele (2) Dysphagia: Qualifiers: Dysphagia type: esophageal phase Qualified Code(s): R13.19 - Other dysphagia Code(s): R13.10 - Dysphagia, unspecified Status: Acute Assessment and Plan: Patient admitted with poor PO intake, likely side effect of chemotherapy. Failed MBS. GI consulted and PEG tube was placed 07/19. Started on solumedrol for laryngeal inflammation, now on a prednisone taper EGD done 07/20 and Peg tube was placed * GI consulted, appreciate reccomendations * Speech referral, should follow outpatient * Continue prednisone taper * Bolus tube feeds, will need to return demonstrate prior to discharge (3) Dehydration: Code(s): E86.0 - Dehydration Status: Acute Assessment and Plan: Initially on TPN, now off. TF orders of Jevity 1.5 at 20 ml/hr to start and advance hourly by 10 ml to goal of 50 ml/h. Switched to bolus feeds: Jevity 1.5 - 300 ml four times daily and water flush of 100 ml after each feed. , but not tolerating. Hold today. * Can continue free water flushes of 100 ml every 4 hours. * 500ml NS today (4) Laryngitis: Code(s): J04.0 - Acute laryngitis Status: Acute Assessment and Plan: * Prednisone taper as noted (5) Urinary tract infection: Code(s): N39.0 - Urinary tract infection, site not specified Status: Resolved Assessment and Plan: Denies dysuria. Was initially on antibiotics for positive UA 07/20 but culture normal aide. Stopped empiric Ceftriaxone * Empiric antibiotics as noted for sepsis (6) Thyroid cancer: Code(s): C73 - Malignant neoplasm of thyroid gland Status: Acute Assessment and Plan: Current therapeutic agent of Lenvatinib causes current symptoms. patient states that she has not been taking lately due to her inability to swallow pills * See dysphagia and laryngitis * following up with her oncologist * Continue synthroid (7) Malnutrition due to starvation: Code(s): E46 - Unspecified protein-calorie malnutrition; T73.0XXS - Starvation, sequela Status: Acute Assessment and Plan: Severe Protein Calorie Malnutrition as related to inadequate protein energy intake with increased protein energy needs in setting of chronic disease (cancer) as evidenced by minimal oral intake for > 1-2 months with failed MBS on 07/17 recommending NPO; significant weight loss of 20% (32 ibs) 6 months; severe muscle wasting (temporalis) and subcutaneous fat loss (orbital fat pads). PPN --Advance tube feeds as noted Plan Treating sepsis & ruling out PE Labs ordered: Lactate, VBG, CBC with diff, CMP, INR, UA with culture Holding tube feeds Checking CT CAP, also rule out PE Bolus NS 500x1 Start Lovenox 40mg daily for DVT prophylaxis Time Spent With Patient Time: 65 minutes Subjective Date/time seen: 07/22/24 10:05 Interval history: Visibly tachypneic with accessory muscle use, reports a cough with yellow sputum. Reporting abdominal pain but abdomen not rigid. Has high residuals, >500. WBC has been elevated. Lung weeks coarse, denies dysuria. Lactate elevated to 5.5 Review of Systems Review of Systems: 12 systems were reviewed and are negativ e except for as per HPI. All systems reviewed & are unremarkable except as noted in HPI and below Exam Narrative: General: Ill-appearing female lying in bed. Appears emaciated. HEENT: PERRL, EOMI. Dry mucous membranes. Voice is hoarse. Patent Oropharynx Neck: Supple. No lymphadenopathy or stridor. Respiratory: Lungs are coarse to auscultation bilaterally, tachypneic Cardiovascular: Regular rate and rhythm with S1-S2. Gastrointestinal: Abdomen is soft, flat, mildly tender at tube feed site,nondistended with positive bowel sounds. G-tube present Skin: Warm and dry. Extremities: No cyanosis, clubbing, or edema. Radial and pedal pulses intact. Neurological: Alert. Cranial nerves 2-12 are grossly intact. No gross focal deficits to casual conversation. Psychiatric: Pleasant and cooperative with normal mood and flat affect. Objective Data Vital Signs Vital Signs: Vital Signs - 24 hr 07/21/24 14:06 07/21/24 19:58 07/22/24 06:00 Temperature 98.1 F 98.8 F 97.7 F Pulse Rate 106 H 95 105 H Respiratory Rate 20 18 20 Blood Pressure 148/59 H 110/51 L 103/45 L Pulse Oximetry 96 97 94 Oxygen Delivery 07/22/24 09:00 Temperature Pulse Rate Respiratory Rate Blood Pressure Pulse Oximetry Oxygen Delivery Room Air Intake/Output Intake/Output: Intake & Output 07/19/24 07/20/24 07/21/24 07/22/24 23:59 23:59 23:59 23:59 Intake Total 2354 2865.0 1220 60 Output Total 1000 2650 150 Balance 1354 215.0 1070 60 Meds/Results Medications: Active Medications Generic Name Dose Route Start Last Admin Trade Name Freq PRN Reason Stop Dose Admin Acetaminophen 1,000 mg 07/20/24 15:41 07/22/24 08:47 Acetaminophen 500 Mg Tablet FEED TUBE 1,000 mg Q8H PRN Administration Pain Rated 1-3 Hydrocodone Bitart/Acetaminophen 1 tab 07/21/24 14:44 07/21/24 15:06 Hydrocodone/Acetaminophen (*Crx) 7.5-325 Mg Tablet FEED TUBE 1 tab Q6H PRN Administration Pain Rated 7-10 Atorvastatin Calcium 40 mg 07/20/24 21:00 07/21/24 20:46 Atorvastatin 40 Mg Tablet FEED TUBE 40 mg HS RACQUEL Administration Cyclobenzaprine HCl 5 mg 07/20/24 15:41 07/22/24 08:46 Cyclobenzaprine Hcl 5 Mg Tablet FEED TUBE 5 mg TID PRN Administration muscle spasm Famotidine 20 mg 07/21/24 09:00 07/21/24 18:40 Famotidine 20 Mg Tablet FEED TUBE 20 mg BID PRN Administration Acid Reflux Fluticasone Propionate 1 spray 07/21/24 09:00 07/21/24 07:35 Fluticasone Propionate 0.05% Na Spr 16 Gm Btl (*Bkc) NASAL Not Given DAILY RACQUEL Gabapentin 300 mg 07/20/24 17:00 07/22/24 08:46 Gabapentin 300 Mg Capsule FEED TUBE 300 mg TID RACQUEL Administration Hydroxyzine HCl 25 mg 07/20/24 15:41 07/22/24 08:46 Hydroxyzine Hcl 25 Mg Tablet FEED TUBE 25 mg BID PRN Administration anxiety Dextrose 1,000 mls @ 50 mls/hr 07/18/24 13:48 Dextrose 10% IV CONT .Q20H PRN if PN is interrupted Levothyroxine Sodium 112 mcg 07/21/24 06:00 07/22/24 05:42 Levothyroxine Sodium 112 Mcg Tablet FEED TUBE 112 mcg DAILY@0600 RACQUEL Administration Paroxetine HCl 40 mg 07/21/24 09:00 07/22/24 08:46 Paroxetine 20 Mg Tablet FEED TUBE 40 mg DAILY RACQUEL Administration Prednisone 40 mg 07/22/24 08:00 07/22/24 08:46 Prednisone 10 Mg Tablet FEED TUBE 08/03/24 07:59 40 mg DAILY@0800 RACQUEL Administration Taper Trazodone HCl 50 mg 07/20/24 21:00 07/21/24 20:46 Trazodone Hcl 50 Mg Tablet FEED TUBE 50 mg HS RACQUEL Administration Radiology Results: ITS Impressions Modified Barium Swallow 07/17/24 11:47 IMPRESSION: 1. Aspiration. 2. Please refer to the speech therapy report for recommendations. Labs Labs: Laboratory Results - last 24 hr 07/21/24 07/22/24 07/22/24 16:37 01:27 05:34 Sodium 137 Potassium 3.1 L Chloride 97 L Carbon Dioxide 29 Anion Gap 11 BUN 59 H D Creatinine 0.87 Estim Creat Clear Calc 42 Estimated GFR > 60 Glucose 112 H POC Capillary Glucose 164 H 120 H Calcium 7.8 L Phosphorus 2.6 Quality VTE Prophylaxis VTE prophylaxis: mechanical ordered and pharmacologic ordered Hospitalist MIPS Advance Care Plan I have confirmed that the patient's Advanced Care Plan is present, code status is documented, or surrogate decision maker is listed in patient medical record.: Yes Medication Reconciliation I have utilized all available resources to obtain, update and review the patients current medications (includes all prescriptions, OTC, herbals, cannab is, and nutritional supplements).: Yes
[2024-07-22 10:34] LABS: Fractional Inspired Oxygen 21 %; HCO3 VBG 24.5 mEq/l (24.0-30.0); Hematocrit 45.2 % (37.0-47.0); Hemoglobin 15.1 g/dL (12.0-15.0); Mean Corpuscular HGB Conc 33.4 g/dl (32-36); Mean Corpuscular Hemoglobin 30.8 pg (26-34); Mean Corpuscular Volume 92.1 fl (80-100); Mean Platelet Volume 12.1 fl (7.4-10.4); PCO2 VBG 39.4 mmHg (42.0-48.0); Platelet Count Result 139 k/mm3 (150-375); Red Blood Count 4.91 M/mm3 (4.2-5.4); Red Cell Distribution Width 14.3 % (11.5-14.5); White Blood Count 3.4 K/mm3 (4.5-10.0)
[2024-07-22 10:40] LABS: Device ROOM AIR; PO2 VBG < 27.0 mmHg (35.0-45.0); pH VBG 7.412 (7.300-7.400)
[2024-07-22 10:44] LABS: Alanine Aminotransferase 32 U/L (6-35); Alkaline Phosphatase 130 U/L (38-126); Anion Gap 13 mmol/L (4-12); Aspartate Amino Transferase 54 U/L (14-36); Bilirubin,Total 0.8 mg/dL (0.2-1.3); Blood Urea Nitrogen 67 mg/dL (7-17); Calcium 7.9 mg/dL (8.4-10.2); Carbon Dioxide 27 mmol/L (22-30); Chloride 97 mmol/L (98-107); Estimated CRCL calculation 41 ml/min; Estimated Glomerular Filt Rate > 60; Glucose 100 mg/dL (65-110); Potassium 3.1 mmol/L (3.4-5.0); Sodium 137 mmol/L (137-145)
[2024-07-22 10:46] LABS: Lactic Acid Reflex 5.5 mmol/L (0.7-2.0)
[2024-07-22 10:53] LABS: INR 1.3; Prothrombin Time 16.6 Seconds (11.1-14.7)
[2024-07-22] MEDS: CEFEPIME 2 GM/NS 50 ML 2 GM/50 ML BAG IVPB (11:05)
--- NOTE | 2024-07-22 11:18 | PC.NURSE ---
Pt to CT scan via wheelchair. IV saline locked.
[2024-07-22 11:34] LABS: Band Neutrophils Percent 38 % (0-6); Lymphocytes Absolute Manual 0.64 K/mm3 (1.1-4.5); Metamyelocytes Percent 2 %; Monocytes Absolute Manual 0.27 K/mm3 (0.1-0.90); Monocytes Percent Manual 8 % (3-9); Neutrophils Absolute Manual 2.41 K/mm3 (1.7-7.2); Neutrophils Percent Manual 33 % (46-73); Nucleated Red Blood Cells 1 %; Total Cells Counted 100
[2024-07-22 11:35] LABS: Schistocytes None Seen
[2024-07-22 11:36] LABS: Giant Platelets Present; Large Platelets Present; Platelet Estimate Slightly Decreased (Adequate)
--- NOTE | 2024-07-22 11:42 | PC.NURSE ---
Returned from CT scan per wheelchair.
[2024-07-22 11:55] LABS: Glucose Point of Care 86 mg/dl (65-105)
[2024-07-22] MEDS: KCL 20 MEQ/SW 100 ML 100 ML 50 MEQ IVPB (12:14)
[2024-07-22] MEDS: VANCOMYCIN 1,250 MG/NS 250 ML 1,250 MG/250 ML BAG 166.67 MG IVPB (12:15)
[2024-07-22] MEDS: ENOXAPARIN 40 MG/0.4 ML SYRINGE SUB-Q (12:59)
[2024-07-22 13:32] LABS: Reflex Lactic Acid Yes or No Add Lactic
[2024-07-22 13:48] LABS: Add Urine Microscopic? YES; Appearance Urine Clear (Clear); Bacteria Urine None Seen /hpf; Bilirubin Urine Negative (Negative); Blood Urine Negative (Negative); Color Urine Yellow (Yellow); Glucose Urine UA Negative (Negative); Ketones Urine Negative (Negative); Leukocyte Esterase Ur Negative LEU/UL (Negative); Need Manual Microscopic Reviewed; Nitrate Urine Negative (Negative); Non Pathogenic Casts >20; Protein Urine 1+ mg/dL (Negative); Specific Grav Ur > 1.045 (1.001-1.035); Squamous Epithelial Cell Urine Occasional /hpf (Few); Urobilinogen Urine 0.2 mg/dL (<2.0); WBC Urine 0-5 /hpf (0-3)
[2024-07-22 14:20] LABS: Lactic Acid 4.9 mmol/L (0.7-2.0)
[2024-07-22] MEDS: metroNIDAZOLE 500 MG/ISO 100ML 500 MG/100 ML BAG 100 MG IVPB (14:20)
[2024-07-22] MEDS: HEPARIN SOD/D5W 100 UNITS/ML 25,000 UNITS/250 ML BAG 9 UNITS IV CONT (15:25)
[2024-07-22] MEDS: HEPARIN SODIUM 5,000 UNITS/ML VIAL 4000 UNITS IV PUSH (15:25)
--- NOTE | 2024-07-22 15:45 | PC.NURSE ---
This patient, Brisa Hogan, was transferred to ICU 7 on 07/22/24 at 1545. Personal belongings sent with patient. Report given to JOSY Hahn. Appropriate documentation sent with patient.
[2024-07-22 16:27] LABS: Alveolar/Arterial O2 Gradient 197.4 mmHg; Base Excess ABG -1.2 mEq/l (+/-2.0); Fractional Inspired Oxygen 42 %; HCO3 ABG 21.5 mEq/l (22.0-26.0); Oxygen Content ABG 18.2 %vol (16.0-22.0); Oxygen Saturation ABG 94.6 % (95.0-100.0); Oxyhemoglobin 91.7 % THb (90.0-100.0); PCO2 ABG 30.6 mmHg (35.0-45.0); Total Hemoglobin 14.1 g/dL (12.0-18.0); pH ABG 7.464 (7.350-7.450)
[2024-07-22 16:29] LABS: Device NASAL CANNULA; Liters per Minute 5.5 LPM; Modified Allen's Test Pass; Site Drawn LEFT RADIAL
--- NOTE | 2024-07-22 17:27 | P.DS_ITS ---
DS: Admitting Diagnosis Discharge Date 07/22/2024 Admitting Diagnosis Sore throat, Dysphagia DS: Discharge Diagnosis Discharge Diagnosis (1) Pneumomediastinum: Code(s): J98.2 - Interstitial emphysema Status: Acute (2) Severe sepsis: Code(s): A41.9 - Sepsis, unspecified organism; R65.20 - Severe sepsis without septic shock Status: Acute (3) Pleural effusion: Code(s): J90 - Pleural effusion, not elsewhere classified Status: Acute DS: Summary Hospital Course Reason for hospitalization: Copied from [facility] 07/16: This is a 63-year-old female with history of thyroid cancer status post thyroidectomy and radiation currently on lenvatinib, anxiety, hyperlipidemia, gastroesophageal reflux disease, and arthritis who presented to the emergency department via private vehicle with complaints of a sore throat and difficulty swallowing. The patient provides the following history. A known side effect of lenvatinib is hoarseness and she was told by her oncologist to hold the drug for period of time if she begins having issues. Last Wednesday she started to have throat pain and hoarseness and she stopped taking the drug however her symptoms persisted. She was seen in the ED 2 days ago for her symptoms at which time a CT scan of the soft tissue of the neck showed inflammation of the larynx. She was given a prescription for prednisone and was told to follow-up with her doctor. Unfortunately she was unable to get the prescription filled (the pharmacy did not have liquid prednisone and she did not want to take a pill). She returns today with ongoing throat pain and reports of difficulty swallowing. She is unable to hold down even water as it comes up almost immediately. She is feeling weak and dehydrated and she goes on to say that there were talks previously about inserting a G-tube for supplementation as she has lost nearly 50 lb over the course of a few months due to poor oral intake. She denies fever, headache, sinus congestion, shortness of breath, stridor, chest pain, hematemesis, melena, hematochezia, diarrhea, and dysuria. Of note, she saw an ENT specialist last for laryngoscopy and she was told that she has a lot of spit and that was the problem. However she goes on to say that her vocal cords were never visualized and she left the office, never to return. In the ED: She was afebrile on arrival with stable vital signs. Labs are significant for WBC count of 15.6, BUN 32, creatinine 0.50. Urinalysis was positive for 1+ protein, 2+ ketones, 3+ leukocyte esterase, 51 to 100 WBC, and 3+ bacteria with moderate squamous cells seen on microscopy. She tested negative for influenza, RSV, COVID, and group A strep. She was given methylprednisone 40 mg IV and ceftriaxone 1 g for possible urinary tract infection and she is being admitted in this setting for hydration and GI consultation for possible EGD and/or G-tube placement. Hospital Course: Patient was admitted for difficulty swallowing, EGD done 07/18 & 07/20. Difficult to pass scope. G-tube placed on 07/20. Respiratory status worsening 07/22 and concern for Sepsis so further workup done as below. Altered mental status today related to acute illness, nonfocal and answers questions but lethargic. Sister Rocio, next of Kin [phone] Severe sepsis: HAP with risk for aspiration. Lactate sent and elevated to 5.5 07/22. Visibly tachypneic on exam with coarse lungs. Immune suppressed with steroids and oral chemotherapy (lenvatinib). On exam lungs coarse, denies dysuria. Recent UA 07/16 looked positive but culture negative. VBG showed respiratory alkalosis in the setting of tachypnea. Sent blood cultures, urine cultures 07/22 AM. Patient reported productive yellow sputum. No dysuria. Lactate over 5. WBC dropped from 18>3 between 07/20 and 07/22. --Empiric Cefepime, Flagyl, Vancomycin --Blood cultures x2 --Repeat UA/Culture --Sputum culture, reporting productive yellow --CT CAP today. Also rule out PE with significant tachypnea --Repeat lactate and VBG in AM --Moved to IMU/ICU for hemodynamic changes --NS bolus, 500ml x1 07/22 CT CAP showed: 1. No pulmonary embolus. Sensitivity is moderately decreased by motion artifact. 2. Moderate-sized right and small left loculated pleural effusions. 3. Pneumomediastinum. 4. Cholelithiasis. Gallbladder distention may be secondary to fasting. Correlate with physical exam to exclude acute cholecystitis. 5. Hypoenhancement in left kidney lower pole, consistent with infarct versus pyelonephritis. Pleural effusions: moderate right and small left loculated effusions. CT guided thoracentesis on Wednesday Peumomediastinum: Should resolve with conservative management, oxygen. Consult Pulmonary if increased oxygen requirements Cholelithiasis: with gallbladder distention. Abdominal pain diffuse, not specific to RUQ. Alk phos slightly elevated. Surgery consult for recommendations Left kidney abnormality: Antibiotics for sepsis as noted, possible renal infarct vs pyelonephritis. No PE. Start a heparin drip. Hasn't voided this morning. Insert Vee catheter. Continuing fluids Repeat labs this afternoon: BMP, lactic acid Dysphagia type: esophageal phase Patient admitted with poor PO intake, likely side effect of chemotherapy. Failed MBS. GI consulted and PEG tube was placed 07/19. Started on solumedrol for laryngeal inflammation, now on a prednisone taper EGD done 07/20 and Peg tube was placed by GI 07/20 * Speech referral, should follow outpatient * Continue prednisone taper * Bolus tube feeds, will need to return demonstrate prior to discharge Dehydration Initially on PPN, now off. TF orders of Jevity 1.5 at 20 ml/hr to start and advance hourly by 10 ml to goal of 50 ml/h. Switched to bolus feeds: Jevity 1.5 - 300 ml four times daily and water flush of 100 ml after each feed. , but not tolerating. Hold today. * Currently holding flushes (free water flushes of 100 ml every 4 hours) Acute laryngitis * Prednisone taper as noted Urinary tract infection: Denies dysuria. Was initially on antibiotics for positive UA 07/20 but culture normal aide. Stopped empiric Ceftriaxone * Empiric antibiotics as noted for sepsis Thyroid cancer: Malignant neoplasm of thyroid gland. Patient receives care at [facility]. Records are not available. Per notes, thyroidectomy 4 years ago. Current therapeutic agent of Lenvatinib causes current symptoms. patient states that she has not been taking lately due to her inability to swallow pills * See dysphagia and laryngitis * follows with her oncologist * Continue synthroid Malnutrition due to starvation: Severe Protein Calorie Malnutrition as related to inadequate protein energy intake with increased protein energy needs in setting of chronic disease (cancer) as evidenced by minimal oral intake for > 1-2 months with failed MBS on 07/17 recommending NPO; significant weight loss of 20% (32 ibs) 6 months; severe muscle wasting (temporalis) and subcutaneous fat loss (orbital fat pads). Aspiration of modified barium swallow --NPO Status at Discharge Cognitive/behavioral status at discharge: A&Ox2 Time Spent with Patient Time attestation: Total time spent providing and/or coordinating discharge services:225 Exam Narrative: General - Lethargic but wakes up to answer questions. Tachypneic Eyes - PERRLA, EOM intact ENT - No thrush, No erythema Neck - No noticeable or palpable swelling Lymph Nodes - No lymphadenopathy Cardiovascular - RRR no m/r/g, no JVD Lungs: Coarse, No wheezing, use of accessory muscles Skin - Skin warm and dry, no wounds or rashes Abdomen - Normal bowel sounds, abdomen soft and nontender Extremities - No edema, cyanosis or clubbing Musculoskeletal - 5/5 strength, normal range of motion, no swollen or erythematous joints. Neurological ? Alert and oriented x 2-3, CN 2-12 grossly intact. Psych: Calm, pleasant, limited by acute illness DS: Data Data Completed and Pending Completed studies during hospitalization: Pending at discharge 07/18/24 10:25 Surgical [PTH] Routine Labs on day of discharge: Labs from last 24 hours 07/22/24 07/22/24 07/22/24 16:22 13:48 13:05 WBC RBC Hgb Hct MCV MCH MCHC RDW Plt Count MPV Immature Gran % (Auto) Neut % (Auto) Lymph % (Auto) [place] % (Auto) Eos % (Auto) Baso % (Auto) Lymph # (Auto) [place] # (Auto) Eos # (Auto) Baso # (Auto) Abs Immat Gran (auto) Absolute Neuts (auto) Absolute Nucleated RBC Total Counted Neutrophils % (Manual) Band Neutrophils % Lymphocytes % (Manual) Monocytes % (Manual) Metamyelocytes % Nucleated RBC % Abs Neuts (Manual) Abs Lymphs (Manual) Abs Monocytes (Manual) Nucleated RBCs Platelet Estimate Large Platelets Giant Platelets Schistocytes PT INR APTT Puncture Site Left radial ABG pH 7.464 H ABG pCO2 30.6 L ABG pO2 67.0 L ABG PO2/FiO2 Ratio 1.60 ABG HCO3 21.5 L ABG O2 Saturation 94.6 L ABG O2 Content 18.2 ABG Base Excess -1.2 VBG pH VBG pCO2 VBG pO2 VBG HCO3 A-a Gradient 197.4 Oxyhemoglobin 91.7 Total Hemoglobin 14.1 O2 Delivery Device Nasal cannula O2 Liters/Min 5.5 FiO2 42 Sodium Potassium Chloride Carbon Dioxide Anion Gap BUN Creatinine Estim Creat Clear Calc Estimated GFR Glucose POC Capillary Glucose Lactic Acid 4.9 H* Calcium Phosphorus Total Bilirubin AST ALT Alkaline Phosphatase Total Protein Albumin Urine Color Yellow Urine Appearance Clear Urine pH 6.0 Ur Specific [place] > 1.045 H Urine Protein 1+ H Urine Glucose (UA) Negative Urine Ketones Negative Ur Blood (Man) Negative Urine Nitrate Negative Urine Bilirubin Negative Urine Urobilinogen 0.2 Add Ur Microanalysis Reviewed Leukocyte Esterase Rfl Negative Urine RBC 3-5 H Urine WBC 0-5 Ur Squamous Epith Cells Occasional Urine Bacteria None seen Urine Casts >20 07/22/24 07/22/24 07/22/24 11:53 10:29 10:19 WBC 3.4 L RBC 4.91 Hgb 15.1 H Hct 45.2 MCV 92.1 MCH 30.8 MCHC 33.4 RDW 14.3 Plt Count 139 L D MPV 12.1 H Immature Gran % (Auto) Not Reportable Neut % (Auto) Not Reportable Lymph % (Auto) Not Reportable [place] % (Auto) Not Reportable Eos % (Auto) Not Reportable Baso % (Auto) Not Reportable Lymph # (Auto) Not Reportable [place] # (Auto) Not Reportable Eos # (Auto) Not Reportable Baso # (Auto) Not Reportable Abs Immat Gran (auto) Not Reportable Absolute Neuts (auto) Not Reportable Absolute Nucleated RBC Not Reportable Total Counted 100 Neutrophils % (Manual) 33 L Band Neutrophils % 38 H Lymphocytes % (Manual) 19.0 Monocytes % (Manual) 8 Metamyelocytes % 2 Nucleated RBC % Not Reportable Abs Neuts (Manual) 2.41 Abs Lymphs (Manual) 0.64 L Abs Monocytes (Manual) 0.27 Nucleated RBCs 1 Platelet Estimate Slightly decreased Large Platelets Present Giant Platelets Present Schistocytes None seen PT 16.6 H INR 1.3 APTT 30.0 Puncture Site ABG pH ABG pCO2 ABG pO2 ABG PO2/FiO2 Ratio ABG HCO3 ABG O2 Saturation ABG O2 Content ABG Base Excess VBG pH 7.412 H* VBG pCO2 39.4 L VBG pO2 < 27.0 L VBG HCO3 24.5 A-a Gradient Oxyhemoglobin Total Hemoglobin O2 Delivery Device Room air O2 Liters/Min Not Reportable FiO2 21 Sodium 137 Potassium 3.1 L Chloride 97 L Carbon Dioxide 27 Anion Gap 13 H BUN 67 H Creatinine 0.91 Estim Creat Clear Calc 41 Estimated GFR > 60 Glucose 100 POC Capillary Glucose 86 Lactic Acid 5.5 H* Calcium 7.9 L Phosphorus Total Bilirubin 0.8 AST 54 H ALT 32 Alkaline Phosphatase 130 H Total Protein 6.0 L Albumin 3.0 L Urine Color Urine Appearance Urine pH Ur Specific [place] Urine Protein Urine Glucose (UA) Urine Ketones Ur Blood (Man) Urine Nitrate Urine Bilirubin Urine Urobilinogen Add Ur Microanalysis Leukocyte Esterase Rfl Urine RBC Urine WBC Ur Squamous Epith Cells Urine Bacteria Urine Casts 07/22/24 07/22/24 05:34 01:27 WBC RBC Hgb Hct MCV MCH MCHC RDW Plt Count MPV Immature Gran % (Auto) Neut % (Auto) Lymph % (Auto) [place] % (Auto) Eos % (Auto) Baso % (Auto) Lymph # (Auto) [place] # (Auto) Eos # (Auto) Baso # (Auto) Abs Immat Gran (auto) Absolute Neuts (auto) Absolute Nucleated RBC Total Counted Neutrophils % (Manual) Band Neutrophils % Lymphocytes % (Manual) Monocytes % (Manual) Metamyelocytes % Nucleated RBC % Abs Neuts (Manual) Abs Lymphs (Manual) Abs Monocytes (Manual) Nucleated RBCs Platelet Estimate Large Platelets Giant Platelets Schistocytes PT INR APTT Puncture Site ABG pH ABG pCO2 ABG pO2 ABG PO2/FiO2 Ratio ABG HCO3 ABG O2 Saturation ABG O2 Content ABG Base Excess VBG pH VBG pCO2 VBG pO2 VBG HCO3 A-a Gradient Oxyhemoglobin Total Hemoglobin O2 Delivery Device O2 Liters/Min FiO2 Sodium 137 Potassium 3.1 L Chloride 97 L Carbon Dioxide 29 Anion Gap 11 BUN 59 H D Creatinine 0.87 Estim Creat Clear Calc 42 Estimated GFR > 60 Glucose 112 H POC Capillary Glucose 120 H Lactic Acid Calcium 7.8 L Phosphorus 2.6 Total Bilirubin AST ALT Alkaline Phosphatase Total Protein Albumin Urine Color Urine Appearance Urine pH Ur Specific [place] Urine Protein Urine Glucose (UA) Urine Ketones Ur Blood (Man) Urine Nitrate Urine Bilirubin Urine Urobilinogen Add Ur Microanalysis Leukocyte Esterase Rfl Urine RBC Urine WBC Ur Squamous Epith Cells Urine Bacteria Urine Casts Discharge Plan Discharge Attending physician on discharge: Nikia Chawla Consulting providers: Fabian Suarez Discharging Clinician: Nikia Chawla Anticipated Discharge Date/Time: 07/20/24 15:14 Patient Disposition: Home Health Service Activity: other - see discharge instructions Diet: NPO Wound Care Instructions: follow printed instructions Discharge Instructions: You will be transferred to the Cardiothoracic surgery ICU at [facility] for further treatment Per Care Coordination, patient to discharge with [facility] ([phone]) for correction and Speech therapy, and [facility] ([phone]) for tube feedings and supplies. Please fax discharge instructions and medication sheets to [facility] at . Patient Instructions: Antibiotic Form Patient Language: Greenlandic Stand Alone Forms: General Discharge Information Follow-up/Referrals: PHYSICIAN NOT ON STAFF,NONSTAFF [Primary Care Provider] - Discharge Medications: New prednisone 10 mg Tablet 40 mg feeding tube DAILY@0800 Qty: 10 0RF cefepime 2 gram Recon Soln 2 g IV Q12H metronidazole in NaCl (iso-os) 500 mg/100 mL Piggyback 500 mg IV Q8HR vancomycin 1,000 mg Recon Soln 1,000 mg IV Q24H Continued trazodone 50 mg tablet 50 mg PO HS paroxetine HCl 40 mg tablet 40 mg PO DAILY fluticasone propionate 50 mcg/actuation spray,suspension 1 spray INTRANASAL DAILY Rx Instructions: each nare oxybutynin chloride 5 mg tablet extended release 24hr 5 mg PO DAILY levothyroxine 112 mcg tablet 112 mcg PO DAILY Discontinued atorvastatin 40 mg tablet 40 mg PO HS famotidine 20 mg tablet 20 mg PO BID PRN (Reason: Acid Reflux) pantoprazole 40 mg tablet,delayed release (DR/EC) 40 mg PO DAILY gabapentin 300 mg capsule 300 mg PO TID cyclobenzaprine 5 mg tablet 5 mg PO TID PRN (Reason: muscle spasm) Qty: 20 0RF hydroxyzine HCl 25 mg tablet 25 mg PO BID PRN (Reason: anxiety) ibuprofen 800 mg tablet 800 mg PO TID PRN (Reason: pain) vitamin E 200 unit Capsule 200 unit PO TID vitamin B complex Capsule 1 cap PO DAILY acetaminophen 500 mg Tablet 1,000 mg PO Q8H PRN (Reason: Pain) Qty: 0 0RF Patient Comments: takes with 800 mg of ibuprofen for pain Date of admission: 07/18/24 10:15 Primary Care Provider: PHYSICIAN NOT ON STAFF,NONSTAFF Admitting Provider: Steffany Rhoades Attending physician on admission: Nikia Chawla Condition: Stable
--- NOTE | 2024-07-22 19:35 | PC.NURSE ---
Patient restless, mottled, and abdominal breathing with AMS. Per dayshift RN, patient has had worsening AMS and hypoxia requiring increased oxygen throughout the day. Patient awaiting transport to [place] for CT ICU. Dr. Mosley called to bedside by this RN to evaluate patient condition.
[2024-07-22] MEDS: KETAMINE HCL (*CRX) 500 MG/10 ML VIAL 100 MG IV PUSH (20:11)
[2024-07-22] MEDS: ROCURONIUM BROMIDE 50 MG/5 ML VIAL 20 MG IV PUSH (20:14)
[2024-07-22] MEDS: MIDAZOLAM 100MG/NS 100ML(*CRX) 100 MG/100 ML BAG IV CONT (20:15)
[2024-07-22] MEDS: FENTANYL 2,500MCG/NS250ML(*CRX 2,500 MCG/250 ML BAG IV CONT (20:15)
--- NOTE | 2024-07-22 20:23 | P.PCNBED_ITS ---
Procedures Intubation Intubation Date: 07/22/24 <LUCILA Mitchell Last Filed: 07/22/24 20:45> Intubation Time: 20:13 <LUCILA Mitchell Last Filed: 07/22/24 20:45> Consent: Patient is confused and unable to give consent right now. Earlier in the day she was agreeable with intubation if needed. Implied consent given full code status. <LUCILA Mitchell Last Filed: 07/22/24 20:45> Sedative: ketamine <LUCILA Mitchell Last Filed: 07/22/24 20:45> Mg given: 100 <LUCILA Mitchell Last Filed: 07/22/24 20:45> Laryngoscope: Rosita ([place] scope 3) <LUCILA Mitchell Last Filed: 07/22/24 20:45> ET tube size: 6.5 <LUCILA Mitchell Last Filed: 07/22/24 20:45> Tube secured depth (cm): 21 <LUCILA Mitchell Last Filed: 07/22/24 20:45> Tube secured location: teeth <LUCILA Mitchell Last Filed: 07/22/24 20:45> Tube placement confirmation: visualized tube passing through cords, equal breath sounds bilaterally, no breath sounds over epigastrium and confirmation by capnometry <LUCILA Mitchell Last Filed: 07/22/24 20:45> Patient tolerated procedure: well and no complications <LUCILA Mitchell Last Filed: 07/22/24 20:45> Intubation complications: none <LUCILA Mitchell Last Filed: 07/22/24 20:45> Additional comments: The patient was evaluated earlier when she was transferred to ICU 7. At that time she was alert and oriented and agreeable to intubation if need be but her respiratory status seemed to have improved at that time. This evening, nursing staff report increasing oxygen requirement and restlessness. The patient was re-evaluated at bedside and she was confused, anxious, and restless. She was complaining of not being able to breathe. She was preoxygenated to an SpO2 of 95% with a non-rebreather mask over high-flow nasal cannula. Due to concerns for difficult airway (prior thyroidectomy with radiation treatment for thyroid cancer and known hypo pharyngeal edema seen on endoscopy with PEG tube placement) ED physician Dr. Darian Barnett was called to bedside to assist. Surgical airway kit was at bedside. Anesthesia also came up to assist if need be. Following ketamine, there was direct visualization of the cords with mild swelling of the vocal cords and hypopharynx. She was intubated easily and atraumatically on 1st attempt using glide scope. Cord was visualized passing through the tubes. Mist was noted in the ET tube and lung sounds were auscultated bilaterally. Post intubation chest x-ray showed ET tube about 3.2 cm above the eneida on my read. The patient began biting down on the tube in was given rocuronium 20 mg in addition to midazolam 2 mg for sedation. <Marianela Dubois PA-C - Last Filed: 07/22/24 20:45> Attestation Supervising Provider Attestation I evaluated this patient with YAMIL Dubois on initial transfer to ICU as well as at the time of intubation. As documented above the patient developed hypoxia with associated altered mental status. Awake intubation was elected with Ketamine. With direct assistance by YAMIL Dubois, I was able to pass the ET tube through the cords without difficulty or complication. <Darian Banrett MD - Last Filed: 07/22/24 21:19>
[2024-07-22] MEDS: MIDAZOLAM HCL (*CRX) 2 MG/2 ML VIAL IV PUSH (20:32)
[2024-07-22] MEDS: SODIUM CHLORIDE 0.9% IV 1,000 ML 999 ML IV CONT (20:39)
--- NOTE | 2024-07-22 20:45 | P.RRN_ITS ---
Critical Care Event Note Summary Code activated: No <Marianela Nelson Dubois PA-C - Last Filed: 07/22/24 23:37> Narrative: The patient was transferred to the ICU as IMU overflow and I received a call about 16:30 to evaluate the patient's respiratory status. Her chart was reviewed and the patient seen at bedside in ICU 7. She was re-evaluated at about 19:15. S: The patient has a history of thyroid cancer status post thyroidectomy and radiation therapy on Lenvima and was admitted through the emergency department on 07/16/2024 with dysphagia, laryngitis, and dehydration. A PEG tube was placed 2 days later at which time she was noted to have hypopharyngeal edema with difficulties traversing the upper esophageal sphincter follow the PEG tube was able to be successfully placed and gastritis was also noticed on exam. Today she began complaining of shortness of breath and chest CT showed moderate size right and small left loculated pleural effusions and pneumomediastinum. Transfer was initiated to [facility] for cardiothoracic surgery evaluation due to concerns for possible esophageal perforation. Upon re-evaluation several hours thereafter her respiratory status had declined and she was becoming increasingly confused and agitated with increasing oxygen requirements. O: On 1st examination she appeared ill but nontoxic and was alert and oriented. She was on 4 L nasal cannula with increasing oxygen requirement later on in the evening at which time she was reportedly on 12 L high-flow. Later evaluation showed that she was increasingly tachypneic and tachycardic. She was confused and unable to answer questions or follow commands appropriately. Urine output was less than 200 for the day. Lung sounds were diminished with scattered crackles bilaterally, right greater than left. Lower extremities more mottled and hands and feet were cool with decreased capillary refill. No stridor. A: Respiratory failure with hypoxia and respiratory distress. Delirium. P: Plan discussed with attending asphalt distributor tender Dr. Mosley and attending ED physician Dr. Darian Barnett who had evaluated the patient with me earlier on in the day. Given impending respiratory failure, the decision was made to intubate the patient. She had given permission for intubation earlier on in the day when she was more alert and oriented. Surgical airway kit was at bedside if needed and anesthesia also came of to assist if need be. She was given ketamine and she was able to be intubated easily and atraumatically a 1st attempt using a glide scope. Chest x-ray showed ET tube in appropriate position. She was given rocuronium and midazolam post intubation for sedation and her blood pressures remained stable in the 130s to 150 systolic. Update was given to physician at [facility]. Due to a high probability of clinically significant, life threatening deterioration, the patient required my highest level of preparedness to intervene emergently and I personally spent this critical care time directly and personally managing the patient. This critical care time included obtaining a history; examining the patient; pulse oximetry; ordering and review of studies; arranging urgent treatment with development of a management plan; evaluation of patient's response to treatment; frequent reassessment; and discussions with other providers. It was exclusive of separately billable procedures and treating other patients and teaching time. Please see Assessment and Plan section and the rest of the note for further information on patient assessment and treatment <Marianela Dubois PA-C - Last Filed: 07/22/24 23:37> Critical care time: 30 - 74 mins <Marianela Dbuois PA-C - Last Filed: 07/22/24 23:37> Attestation Supervising Provider Attestation I examined this patient with YAMIL Dubois. I agree with the assessment and plan as documented above and performed all aspects of the medical decision making. <Darian Barnett MD - Last Filed: 07/23/24 01:22>
--- NOTE | 2024-07-22 21:13 | PC.NURSE ---
Attempt made to notify court Baez of patient intubation and transfer to [place]. Unable to reach him. Second call placed to sister Rocio who was updated on patient condition and transfer. Also, that patient's belongings were all sent along with her via EMS.
--- NOTE | 2024-07-22 22:06 | PCRCNOTE ---
RT was called down to the ICU at 1938 for a breathing treatment for patient. When RT arrived to the patient room she was informed we were emergently intubating the patient. Breathing treatment was not given due to emergent intubation. Nurse aware. Patient was transported to a different facility quickly after intubation was complete.
--- NOTE | 2024-07-22 23:15 | PM.EVENT ---
Event Note Event Note Event Note: Nursing staff had contacted me regarding patient's respiratory status. The [facility] had been taking care patient earlier in the day and was where the patient's condition. [facility] with the assistance of the ER provider intubated the patient. Please see prior rapid response note from that provider. After intubation I provided orders for ventilator support with tidal volume 350 rate of 18 peep of 5 will wean FiO2 as tolerated. Also provided orders for sedation with fentanyl and Versed. As well as a 1 L fluid bolus. Patient's tachycardia and tachypnea improved with intubation and improved respiratory support. Patient's blood pressures remained normotensive to mildly hypertensive throughout resuscitation. The patient had improved cap refill and decreased degree of mottling after fluid bolus. 30 minute spent in critical care activities. Due to a high probability of clinically significant, life threatening deterioration, the patient required my highest level of preparedness to intervene emergently and I personally spent this critical care time directly and personally managing the patient. This critical care time included obtaining a history; examining the patient; pulse oximetry; ordering and review of studies; arranging urgent treatment with development of a management plan; evaluation of patient's response to treatment; frequent reassessment; and discussions with other providers. It was exclusive of separately billable procedures and treating other patients and teaching time. Please see Assessment and Plan section and the rest of the note for further information on patient assessment and treatment.
--- OUTSIDE RECORDS SUMMARY | 2024-07-23 07:05 | XMS_ITS | Clinical Summary ---
Author Organization [facility] Address [address] [place] [address] Care Team Providers Care Movers Name Role Phone Joseph Manzanares MD Unavailable Yaya Villtaoro MD Primary Care Provider [phone] Source Comments [facility],non-owned Affiliates and Associated Physician Practices is amultiple site organization consisting of ambulatory clinics and hospital sitesin [place], [place], [place] and [place]. This disclosure is being madepursuant to the Care Everywhere program and may not contain all information available regarding this patient. Last updated 18.[facility] Allergies Active Allergy Reactions Criticality Noted Date Comments Kiwi Extract Anaphylaxis High 01/10/2021 Medications * Be aware that medications may not be up to date on this document. Alwaysverify current medications with the patient. Medication Sig Dispensed Refills Start Date End Date Status PARoxetine (PAXIL) 40 MG tablet Take 1 (one) tablet by mouth once daily 2 7 Active famotidine (PEPCID) 20 MG tablet Take 1 (one) tablet by mouth 2 times daily as needed 0 Active traZODone (DESYREL) 50 MG tablet Take 1 (one) tablet by mouth at bedtime 0 Active oxybutynin CR 24hr (Ditropan-XL) 5 MG tablet Take 1 (one) tablet by mouth once daily 90 tablet 4 2 Active buPROPion SR 12hr (Wellbutrin-SR) 100 MG tablet Take 1 (one) tablet by mouth 2 times daily 3 Active celecoxib (CeleBREX) 200 MG capsuleIndications :Primary osteoarthritis of left hip Take 1 (one) capsule by mouth once daily 90 capsule 3 3 Active Additional Information Patient not taking.Reported on 06/15/2024 cyclobenzaprine (Flexeril) 5 MG tablet Take 1 (one) tablet by mouth 3 times daily as needed 90 tablet 1 3 Active gabapentin (Neurontin) 300 MG capsuleIndications :Primary osteoarthritis of left hip Take 1 (one) capsule by mouth 3 times daily 90 capsule 5 3 Active pantoprazole EC (Protonix) 40 MG tabletIndications: Gastroesophageal reflux disease, unspecified whether esophagitis present TAKE ONE TABLET BY MOUTH ONCE DAILY FOR STOMACH 90 tablet 3 Active naloxone HCl (Narcan) 4 MG/0.1ML nasal spray [place] 1 (one) spray into the nose as needed Active atorvastatin (Lipitor) 40 MG tabletIndications: Hyperlipidemia, unspecified hyperlipidemia type TAKE 1 TABLET BY MOUTH EVERYDAY AT BEDTIME 90 tablet 1 3 Active fluticasone propionate (Flonase) 50 MCG/ACT nasal sprayIndications:A llergic rhinitis, unspecified seasonality, unspecified trigger SPRAY 2 SPRAYS INTO EACH NOSTRIL EVERY DAY 16 g 1 3 Active calcitriol (Rocaltrol) 0.5 MCG capsuleIndications :Hypocalcemia Take 1 (one) capsule by mouth once daily Reasons: Low Amount of Calcium in the Blood 90 capsule 3 3 Active hydrOXYzine HCl (Atarax) 25 MG tablet Take 1 (one) tablet to 2 (two) tablets by mouth as needed 4 Active levothyroxine (Synthroid) 112 MCG tabletIndications: Hypothyroidism,Mal ignant Neoplasm of Thyroid Take 1 (one) tablet by mouth daily before breakfast Reasons: Cancer of Thyroid, Underactive Thyroid 100 tablet 3 4 10/25/19 25 Active ibuprofen (Motrin) 200 MG tablet Take 4 (four) tablets by mouth 4 times daily Active ondansetron (Zofran) 8 MG tabletIndications: Cancer Chemotherapy-Induc ed Nausea and Vomiting Take one tablet by mouth once a day 1 hour before anticancer drug and one tablet every 8 hours as needed for breakthrough nausea/vomiting. Reasons: Nausea and Vomiting caused by Cancer Chemotherapy 100 tablet 11 4 Active prochlorperazine (Compazine) 10 MG tabletIndications: Papillary carcinoma of thyroid (HCC) Take 1 (one) tablet by mouth every 6 hours as needed for Nausea/Vomiting 30 tablet 11 4 Active Additional Information Patient not taking.Reported on 03/07/2024 diphenhydrAMINE/ma alox/lidocaine visc 1:1:1 (Magic Mouthwash) suspensionIndicati ons:Oropharyngeal dysphagia,Chronic pain after cancer treatment Swish and swallow 10 mL every 6 hours as needed 1120 mL 5 4 Active Additional Information Patient not taking.Reported on 06/15/2024 acetaminophen (Tylenol) 500 MG tablet Take 2 (two) tablets by mouth Every 6 Hours (03,09,15,21) Active clobetasol (Temovate) 0.05 % ointment Apply to affected area 2 times daily as needed Active calcium 500 mg tabletIndications: Metastasis to bone (HCC) Take 1 (one) tablet by mouth daily with food 30 tablet 4 Active Additional Information Patient not taking.Reported on 06/15/2024 vitamin D3 (Cholecalciferol) 10 MCG (400 UNIT) tabletIndications: Metastasis to bone (HCC) Take 1 (one) tablet by mouth once daily 30 tablet 4 Active Additional Information Patient not taking.Reported on 06/15/2024 Lenvima, 14 MG Daily Dose, 10 & 4 MG capsuleIndications :Papillary carcinoma of thyroid (HCC) TAKE 1 CAPSULE (10MG) AND 1 CAPSULE (4MG) ONCE DAILY FOR A TOTAL OF 14MG 60 Each 2 5 Active lenvatinib (Lenvima) 10 & 4 MG capsuleIndications :Papillary carcinoma of thyroid (HCC) Take one 10 mg capsule and one 4 mg capsule (14 mg total) once daily. 60 Each 2 4 07/06/19 25 Discontinued Active Problems Problem Noted Date Diagnosed Date Metastasis to bone 11/04/2023 Gastroesophageal reflux disease 06/13/2023 06/13/2023 Lumbar radiculopathy 06/13/2023 06/13/2023 Secondary malignant neoplasm of bone 06/13/2023 06/13/2023 Papillary carcinoma of thyroid 06/13/2023 1 08/14/2022 Cancer Staging:Pathologic:Stage III(pT4a, pN1b, cM0, Age at diagnosis: >= 55 years) - Signed by Remi Beckett MD on 10/26/2023 Cervical spine tumor 10/02/2022 Cancer, metastatic to bone 09/21/2022 Need for influenza vaccination 06/11/2022 Left shoulder pain 06/11/2022 Urinary incontinence 06/11/2022 Chronic pain after cancer treatment 06/11/2022 Depression, unspecified 05/22/2021 Neoplasm of uncertain behavior of skin Assessment & Plan (12/09/2020 10:01 PM CDT): - R ear antehelix - Ddx includes CNH vs. NMSC vs. HAK - Shave Biopsy (see procedure note) - Post-biopsy handout given - Wound care instructions reviewed - Will call patient with biopsy results. If intervention is indicated, will make arrangements at that time -Rec starting to use OTC CNH pillow for ear Other seborrheic keratosis 12/09/2020 Assessment & Plan (12/09/2020 4:00 PM CDT): - L forearm - Benign, reassured patient Postoperative hypothyroidism 10/14/2020 Thyroid cancer 10/14/2020 Hypocalcemia 10/14/2020 Other hypoparathyroidism 10/14/2020 Cellulitis 08/08/2020 Overview (08/09/2020): Woke up 5d prior to presentation w/ right ear pain and wound, 2 day prior had some purulent drainage from the site. Flushed with hydrogen peroxide. No fevers chills. 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 Lymphadenopathy of head and neck region 07/24/19 21 High cholesterol 09/06/2019 Primary osteoarthritis of left hip 12/07/2018 Psychophysiologic insomnia 11/19/2016 Chronic fatigue 11/19/2016 Snoring 11/19/2016 Obsessive-compulsive disorder 11/19/2016 Overview (12/09/2020): counting Overview: counting Headache 11/19/2016 Nicotine dependence 11/19/2016 Other psoriasis Assessment & Plan (12/09/2020 3:52 PM CDT): - Well controlled - Continue clobetasol ointment BID PRN to affected areas Encounters Date Type Department Care Team Description 07/13/2024 Telephone [facility] - ENT [address] [place] [address] Andria Aldana RN Concerns 07/12/2024 Travel 07/07/2024 1:04 PM BIODIESEL OPERATIONS MANAGER - 07/07/2024 11:59 PM BIODIESEL OPERATIONS MANAGER Hospital Encounter [facility] [address] [place] [phone] Remi Beckett MD Discharge Disposition: Home or Self Care 07/07/2024 11:23 AM BIODIESEL OPERATIONS MANAGER - 07/07/2024 1:03 PM BIODIESEL OPERATIONS MANAGER Hospital Encounter [facility] [place] [address] Remi Beckett MD Discharge Disposition: Home or Self Care 07/07/2024 11:23 AM BIODIESEL OPERATIONS MANAGER - 07/07/2024 1:03 PM BIODIESEL OPERATIONS MANAGER Hospital Encounter [facility] [place] [address] Remi Beckett MD Discharge Disposition: Home or Self Care 07/07/2024 10:00 AM BIODIESEL OPERATIONS MANAGER - 07/07/2024 11:22 AM BIODIESEL OPERATIONS MANAGER Hospital Encounter [facility] [address] [place] [phone] Remi Beckett MD Discharge Disposition: Home or Self Care 07/07/2024 Travel 07/06/2024 2:00 PM BIODIESEL OPERATIONS MANAGER Hospital Encounter [facility] Cancer Care - Radiation Oncology [address] [place] [phone] Marcio Mcintosh MD 07/06/2024 2:00 PM BIODIESEL OPERATIONS MANAGER Office Visit [facility] Cancer [facility] - Rad/Onc [address] [place] [phone] Marcio Mcintosh MD Cancer, metastatic to bone (HCC) (Primary Dx); Metastasis to bone (HCC); Papillary carcinoma of thyroid (HCC); Thyroid cancer (CMS/HCC); Secondary malignant neoplasm of bone (HCC) 07/06/2024 11:56 AM BIODIESEL OPERATIONS MANAGER - 07/06/2024 1:59 PM BIODIESEL OPERATIONS MANAGER Hospital Encounter [facility] Imaging Services - MRI [address] [place] [address] Marcio Mcintosh MD Radiation Oncology Discharge Disposition: Home or Self Care 07/06/2024 Travel 07/06/2024 Refill [facility] - Hematology/Oncolog y [address] [place] [phone] Remi Beckett MD Refill Request 07/05/2024 Refill [facility] - Hematology/Oncolog y [address] [place] [phone] Remi Beckett MD Refill Request 06/19/2024 Travel 06/15/2024 3:00 PM BIODIESEL OPERATIONS MANAGER Office Visit [facility] - Hematology/Oncolog y [address] [place] [phone] Remi Beckett MD Papillary carcinoma of thyroid (HCC) (Primary Dx); Metastasis to bone (HCC); Mucositis due to antineoplastic therapy; Encounter for antineoplastic chemotherapy 06/15/2024 2:36 PM BIODIESEL OPERATIONS MANAGER - 06/15/2024 11:59 PM BIODIESEL OPERATIONS MANAGER Hospital Encounter [facility] [address] [place] [address], [facility] [place] [address] Discharge Disposition: Home or Self Care 06/15/2024 2:20 PM BIODIESEL OPERATIONS MANAGER - 06/15/2024 2:35 PM BIODIESEL OPERATIONS MANAGER Hospital Encounter [facility] [address] [place] [phone] Remi Beckett MD Discharge Disposition: Home or Self Care 06/15/2024 Travel 06/08/2024 Travel 05/24/2024 Orders Only [facility] - Hematology/Oncolog y [address] [place] [address] Darryl العراقي RN 05/24/2024 Travel from Last 3 Months Immunizations Name Administration Dates Next Due COVID PFIZER BIVALENT 12Y+ 30mcg/0.3ML 10/21/2022 Covid Pfizer primary monoval ent 12+ yr 0.3mL Purple cap 12/08/2021,06/10/2021,10/20/2020,2020 FLU VACCINE TRI IIV3 SPLIT I M (FLUVIRIN) 04/29/2015 INFLUENZA VACCINE 05/31/2021, 7,04/15/2016,2014 INFLUENZA VACCINE, CELL CULT URE, QUADR. (FLUCELVAX QUADRIVALENT; 6MO+) (CCIIV4) 05/13/2020 INFLUENZA VACCINE, QUADR. (A FLURIA, FLUZONE QUADRIVALENT; 6MO+) (IIV4) 05/12/2017,04/15/2016 INFLUENZA VACCINE, QUADR. (F LUZONE; FLULAVAL; FLUARIX; AFLURIA QUADRIVALENT; 6MO+), 0.5 ML (IIV4) 05/31/2021,03/22/2019 PNEUMOCOCCAL PCV20 CONJ VAC IM 08/12/2022,2022 Pneumococcal Pcv13 Conj 06/22/2018 TDAP (7yrs+) 02/05/2016 Zoster Hzv Vacc Recombinant Inj Im 10/21/2022 iNFLUENZA VACCINE, RECOM-NG, QUADR. (FLUBLOCK QUADRIVALENT; 18Y+) (RIV4) 06/10/2022 Family History Medical History Relation Name Comments Diabetes Brother step Status: Alive Gout Brother step Status: Alive Alcohol abuse Daughter 1 Status: Alive Drug Abuse Daughter 2 Alcohol abuse Father unknown since age 10 Status : Diabetes Mother Other Mother xochilt; Status: Al oswaldo Anxiety Disorder Sister 1 Status: Ali ve Depression Sister 2 Other Sister 3 xochilt Arthritis Sister 4 Diabetes Sister 5 Anxiety Disorder Sister 6 Status: Ali ve Depression Sister 7 Hypertension Sister 8 Alcohol abuse Sister 9 Diabetes Sister 10 half Status: Alive None Known Sister 11 Status: Alive Learning Disability Son Status: Alive Thyroid Disease Neg Hx Relation Name Status Comments Brother step Daughter 1 Daughter 2 Father unknown since age 10 Mother Sister 1 Sister 2 Sister 3 Sister 4 Sister 5 Sister 6 Sister 7 Sister 8 Sister 9 Sister 10 half Sister 11 Son Social History Tobacco Use Types Packs/Day Years Used Date Smoking Tobacco: Some Days Cigarettes 0.3 51 Started: 07/22/1973 Smokeless Tobacco: Current Tobacco Cessation:Ready to Q uit: Not Asked; Counseling Given: Not Answered Comments:1-2 cigarettes per day current smoker Alcohol Use Standard Drinks/Week Comments No 0 (1 standard drink = 0.6 oz pur e alcohol) OASIS D0700: Social Isolation Answer Da te Recorded Frequency of experiencing loneliness or isolatio n Never 11/05/2022 OASIS A1250: Transportation Answer Date Recorded Lack of Transportation (Medical) No 11/05/2022 Lack of Transportation (Non-Medical) No 11/05/2022 Patient Unable or Declines to Respond No 11/05/2022 OASIS B1300: Health Literacy Answer Oli e Recorded Frequency of needing help to read materials from doctor or pharmacy Sometimes 11/05/2022 AUDIT-C Answer Date Recorded Q1: How often do you have a drink containing alc ohol? Monthly or less 10/02/2022 Q2: How many drinks containi ng alcohol do you have on a typical day when you are drinking? 1 or 2 10/02/2022 Q3: How often do you have si x or more drinks on one occasion? Less than monthly 10/02/2022 Overall Financial Resource Strain (CARDIA) Answe r Date Recorded How hard is it for you to pa y for the very basics like food, housing, medical care, and heating? Not hard at all 10/02/2022 PHQ-2 Answer Date Recorded Patient Health Questionnaire-2 Score 0 07/06/2024 [facility] [place] [facility] Occupat ional Health - Occupational Stress Questionnaire Answer Date Recorded Do you feel stress - tense, restless, nervous, or anxious, or unable to sleep at night because your mind is troubled all the time - these days? Not at all 10/02/2022 Hunger Vital Sign Answer Date Recorded Within the past 12 months, y ou worried that your food would run out before you got the money to buy more. Never true 10/03/19 23 Within the past 12 months, t he food you bought just didn't last and you didn't have money to get more. Never true 10/02/2022 PRAPARE - Transportation Answer Date Re corded In the past 12 months, has l ack of transportation kept you from medical appointments or from getting medications? No 09/04 In the past 12 months, has l ack of transportation kept you from meetings, work, or from getting things needed for daily living? No 10/02/2022 Housing Stability Vital Sign Answer Oli e Recorded In the last 12 months, was t here a time when you were not able to pay the mortgage or rent on time? No 10/02/2022 In the last 12 months, how many places have you lived? 1 10/02/2022 In the last 12 months, was t here a time when you did not have a steady place to sleep or slept in a chcf (including now)? No 10/02/2022 Sex and Gender Information Value Date Recorded Sex Assigned at Not on file Gender Identity Not on file Sexual Orientation Not on file Last Filed Vital Signs Vital Sign Reading Time Taken Comments Blood Pressure 129/57 07/06/2024 1:53 PM BIODIESEL OPERATIONS MANAGER Pulse 85 07/06/2024 1:53 PM BIODIESEL OPERATIONS MANAGER Temperature 36.4 ??C (97.5 ??F) 07/06/2024 1:53 PM CS T Respiratory Rate 18 07/06/2024 1:53 PM BIODIESEL OPERATIONS MANAGER Oxygen Saturation 95% 07/06/2024 1:53 PM BIODIESEL OPERATIONS MANAGER Inhaled Oxygen Concentration - - Weight 49.3 kg (108 lb 11.2 oz) 06/15/2024 3:01 PM BIODIESEL OPERATIONS MANAGER Height 157.5 cm (5' 2) 03/20/2024 2:39 PM CDT Body Mass Index 19.88 03/20/2024 2:39 PM CDT Plan of Treatment Upcoming Encounters Date Type Department Care Team (Late st Contact Info) Description 07/25/2024 10:00 AM BIODIESEL OPERATIONS MANAGER Office Visit [facility] - Endocrinology [address] [place] [address], [place] [address] Yosi Bustamante MD [address] [place] [address] [place] [address] 07/26/2024 10:00 AM BIODIESEL OPERATIONS MANAGER Appointment [facility] [address] [place] [phone] Neri Delgado MD [address] [place] [phone] 07/26/2024 10:00 AM BIODIESEL OPERATIONS MANAGER Office Visit [facility] - ENT [address] [place] [phone] Myra Farmer, BOTTOM BRUSHER [address] [place] [address] [place] [phone] 07/26/2024 11:15 AM BIODIESEL OPERATIONS MANAGER Office Visit [facility] - ENT [address] [place] [phone] Neri Delgado MD [address] [place] [phone] 08/02/2024 2:20 PM BIODIESEL OPERATIONS MANAGER Appointment [facility] [address] [place] [phone] 08/02/2024 3:00 PM BIODIESEL OPERATIONS MANAGER Office Visit [facility] - Hematology/Oncology [address] [place] [phone] Remi Beckett MD [address] [place] [phone] 08/18/2024 1:45 PM BIODIESEL OPERATIONS MANAGER Office Visit [facility] - ENT [address] [place] [phone] Neri Delgado MD [address] [place] [phone] Health Maintenance Due Date Last Done Comments BONE DENSITY TESTING 1960 COLOGUARD (AGES 45-75) - COLON CA SCREENING 1958 COLON MONITORING 1958 COLONOSCOPY - COLON CA SCREENING 1958 CT COLONOGRAPHY - COLON CA SCREENING 1960 Colorectal Cancer Screening 1960 FIT - COLON CA SCREENING 1958 FLEX SIG - COLON CA SCREENING 1960 MAMMOGRAM 1960 Opioid Medication Agreement - Annual 11/04/2021 11/04/2020 ZOSTER VACCINE (2 of 2) 12/16/2022 10/21/2022 COVID-19 VACCINE ( - season) 2024 10/21/2022, 12/08/2021, 12/08/2021, Additional history exists INFLUENZA VACCINE (#1) 2024 , 05/31/2021, 05/31/2021, Additional history exists MEDICARE AWV ? CALENDAR YEAR 2024 PAP with HPV 11/22/2024 11/23/2019 DTAP/TDAP/TD VACCINES (2 - Td or Tdap) 02/04/2026 02/05/2016 Respiratory Syncytial Virus (RSV) Vaccine Pt: or over 60 yrs (1 - 1-dose 75+ series) 2033 HEPATITIS C SCREENING Completed 03/07/2020 PNEUMOCOCCAL VACCINE 50+ Completed 023, 08/12/2022, 06/22/2018 HIV SCREENING Completed 08/14/2022 DEPRESSION SCREENING Completed 07/06/2024, 04/01/2023, 03/25/2023, Additional history exists HEPATITIS B VACCINE Aged Out No longe r eligible based on patient's age to complete this topic HIB VACCINE Aged Out No longer eligi ble based on patient's age to complete this topic HPV VACCINE Aged Out No longer eligi ble based on patient's age to complete this topic MENINGOCOCCAL (Group B) VACCINE Aged Out No longer eligible based on patient's age to complete this topic MENINGOCOCCAL VACCINE Aged Out No griffin tello eligible based on patient's age to complete this topic Medical Devices Implanted Type Area Customer Counter Associate Device Identifier Shelf Expiration Date Model / Serial / Lot Savage Bone Void Ca Slf Stimulan Implanted:Qty: 1 on 10/02/2022 by Coy Gómez MD at [facility] N/A: Spine Cervical Biocompstes 04/03/2025 [id number] / / [id number] Description:mixed with 500mg vancomycin powder Screw Set M6 Spne Oc Upr Thor Infnt Implanted:Qty: 11 on 10/02/2022 by Coy Gómez MD at [facility] N/A: Spine Cervical Medtronic Sofamor Danek Spine [id number] / / Donovan Spnl 240mm 3.5mm Std Implanted:Qty: 1 on 10/02/2022 by Coy Gómez MD at [facility] N/A: Spine Cervical Medtronic Inc [id number] / / Savage Bone Void 10ml Dbm Grftn Algrf Ptty Implanted:Qty: 1 on 10/02/2022 by Coy Gómez MD at [facility] N/A: Spine Cervical Medtronic Inc [id number] / / Screw 3.5mm 16mm Ma Spne Bone Implanted:Qty: 4 on 10/02/2022 by Coy Gómez MD at [facility] N/A: Spine Cervical Medtronic Inc [id number] / / Screw 3.5mm 20mm Ma Spne Bone Implanted:Qty: 1 on 10/02/2022 by Coy Gómez MD at [facility] N/A: Spine Cervical Med[employer]onic Inc [id number] / / Screw 3.5mm 18mm Ma Spne Bone Implanted:Qty: 1 on 10/02/2022 by Coy Gómez MD at [facility] N/A: Spine Cervical Medtronic Inc [id number] / / Screw 3.5mm 22mm Ma Spne Bone Implanted:Qty: 1 on 10/02/2022 by Coy Gómez MD at [facility] N/A: Spine Cervical Med[employer]onic Inc [id number] / / Screw 4mm 20mm Ma Spne Bone Implanted:Qty: 1 on 10/02/2022 by Coy Gómez MD at [facility] N/A: Spine Cervical Med[employer]onic Inc [id number] / / Screw 4.5mm 28mm Ma Spne Bone Implanted:Qty: 2 on 10/02/2022 by Coy Gómez MD at [facility] N/A: Spine Cervical Medtronic Inc [id number] / / Screw 4.5mm 32mm Ma Spne Infnt Nonster Implanted:Qty: 1 on 10/02/2022 by Coy Gómez MD at [facility] N/A: Spine Cervical Medtronic Inc [id number] / / Procedures Procedure Name Priority Date/Time Associated Diagnosis Comments NM BONE SCAN WHOLE BODY Routine 07/07/2024 1:44 PM BIODIESEL OPERATIONS MANAGER Cancer, metastatic to bone (HCC) CT NECK SOFT TISSUE W CONT Routine 07/07/2024 12:11 PM BIODIESEL OPERATIONS MANAGER Papillary carcinoma of thyroid (HCC) CT CHEST ABDOMEN PELVIS W CONT Routine 07/07/2024 12:08 PM BIODIESEL OPERATIONS MANAGER Papillary carcinoma of thyroid (HCC) MRI CERVICAL SPINE WWO CONT Routine 07/06/2024 1:17 PM BIODIESEL OPERATIONS MANAGER Metastasis to bone (HCC) Secondary malignant neoplasm of bone (HCC) THYROGLOBULIN BY ANTONIETA RFLXED Routine 06/15/2024 2:41 PM BIODIESEL OPERATIONS MANAGER Thyroid cancer (HCC) Postoperative hypothyroidism Malignant tumor of thyroid gland (HCC) Cancer, metastatic to bone (HCC) Hypocalcemia Other hypoparathyroidism (HCC) Papillary carcinoma of thyroid (HCC) MAGNESIUM BLOOD STAT 06/15/2024 2:41 PM BIODIESEL OPERATIONS MANAGER VITAMIN D 25-HYDROXY MARAL 06/15/2024 2:41 PM BIODIESEL OPERATIONS MANAGER PHOSPHORUS BLOOD Routine 06/15/2024 2:41 PM BIODIESEL OPERATIONS MANAGER Postoperative hypothyroidism Thyroid cancer (HCC) Hypocalcemia Other hypoparathyroidism (HCC) Malignant tumor of thyroid gland (HCC) Cancer, metastatic to bone (HCC) THYROGLOBULIN REFLEX PROFILE Routine 06/15/2024 2:41 PM BIODIESEL OPERATIONS MANAGER Thyroid cancer (HCC) Postoperative hypothyroidism Malignant tumor of thyroid gland (HCC) Cancer, metastatic to bone (HCC) Hypocalcemia Other hypoparathyroidism (HCC) Papillary carcinoma of thyroid (HCC) TSH Routine 06/15/2024 2:41 PM BIODIESEL OPERATIONS MANAGER Thyroid cancer (HCC) Postoperative hypothyroidism Malignant tumor of thyroid gland (HCC) Cancer, metastatic to bone (HCC) Hypocalcemia Other hypoparathyroidism (HCC) Papillary carcinoma of thyroid (HCC) COMPREHENSIVE METABOLIC PANEL STAT 06/15/2024 2:41 PM BIODIESEL OPERATIONS MANAGER Papillary carcinoma of thyroid (HCC) CBC W AUTO DIFFERENTIAL STAT 06/15/2024 2:41 PM BIODIESEL OPERATIONS MANAGER Papillary carcinoma of thyroid (HCC) HIV-1 HIV-2 ANTIBODY + HIV P24 AG PANEL Routine 08/14/2022 3:21 PM BIODIESEL OPERATIONS MANAGER Preventative health care SCAN ONLY HIS OPIOID MED AGREEMENT Routine 11/04/2020 HEPATITIS C AB SCREEN RFLX NAAT QUANT Routine 03/07/2020 3:19 PM CDT Encounter for hepatitis C screening test for low risk patient HPV DETECTION HIGH RISK LEE Routine 11/23/2019 10:00 AM CDT Well woman exam with routine gynecological exam from Last 3 Months or Most Recently Relevant to Health Maintenance Results * NM Bone Scan Whole Body (07/07/2024 1:44 PM BIODIESEL OPERATIONS MANAGER) Anatomical Region Laterality Modality Abdomen Nuclear Medicine 07/07/2024 10:5 1 AM BIODIESEL OPERATIONS MANAGER Impressions 07/07/2024 3:49 PM BIODIESEL OPERATIONS MANAGER IMPRESSION: 1. Intense radiotracer uptake within left pelvis, consistent with severe osteoarthritis seen in the prior PET/CT from 02/25/2024. 2. Moderate radiotracer uptake within lower neck anteriorly which may relate to post treatment changes, follow-up is recommended. > Dictated by Daphne Reis MD (Wound/Ostomy Clinical Nurse Specialist) 07/07/2024 10:51 AM Tiesha Mckeon DO have personally reviewed and interpreted this examination/study. > Interpreting Provider: Tiesha Sy DO on 07/07/2024 3:49 PM Narrative 07/07/2024 3:49 PM BIODIESEL OPERATIONS MANAGER PROCEDURE: ??NM BONE SCAN WHOLE BODY DATE/TIME OF EXAM: ??07/07/2024 10:45 AM CLINICAL INFORMATION: None relevant/not provided if blank. Indication: C79.51: Cancer, metastatic to bone (HCC) HISTORY: A 63-year-old female with metastatic papillary thyroid carcinoma diagnosed in 2020 status post total thyroidectomy, cervical and thoracic spine metastasis status post radiotherapy. Currently on immunotherapy. TECHNIQUE: The patient was injected with 24.9 mCi of -c MDP IV in the right antecubital fossa. Anterior and posterior whole body images were obtained after 2 hours. Additional images of the head, neck and upper chest were also obtained. Patient BMI 19.8 ??kg/m??. COMPARISON: No similar prior study for comparison. FINDINGS: Moderate increased radiotracer uptake within lower neck and upper chest anteriorly. There is intense radiotracer uptake within left hip joint. There are multiple sites of boqg-kn-wijjmert increased uptake in the bilateral shoulders and spine consistent with degenerative disease. Procedure Note Tiesha Sy, DO - 07/07/2024 PROCEDURE: NM BONE SCAN WHOLE BODY DATE/TIME OF EXAM: 07/07/2024 10:45 AM CLINICAL INFORMATION: None relevant/not provided if blank. Indication: C79.51: Cancer, metastatic to bone (HCC) HISTORY: A 63-year-old female with metastatic papillary thyroidcarcinoma diagnosed in 2020 status post total thyroidectomy, cervical and thoracic spine metastasis status post radiotherapy. Currently on immunotherapy. TECHNIQUE: The patient was injected with 24.9 mCi of bzmnxifwwh68-u MDPIV in the right antecubital fossa. Anterior and posterior whole body images were obtained after 2 hours. Additional images of the head, neck andupper chest were also obtained. Patient BMI 19.8 kg/m??. COMPARISON: No similar prior study for comparison. FINDINGS: Moderate increased radiotracer uptake within lower neck and upper chest anteriorly. There is intense radiotracer uptake within left hip joint. There are multiple sites of bfwu-wi-nmtxymkj increased uptake in the bilateral shoulders and spine consistent with degenerative disease. IMPRESSION: 1. Intense radiotracer uptake within left pelvis, consistent with severe osteoarthritis seen in the prior PET/CT from 02/25/2024. 2. Moderate radiotracer uptake within lower neck anteriorly which may relate to post treatment changes, follow-up is recommended. > Dictated by Daphne Reis MD (Wound/Ostomy Clinical Nurse Specialist) 07/07/2024 10:51AM ITiesha DO have personally reviewed and interpreted this examination/study. > Interpreting Provider: Tiesha Sy DO on 07/07/2024 3:49 PM Remi Beckett MD NM ORDERABLES * CT Neck Soft Tissue W Cont (07/07/2024 12:11 PM BIODIESEL OPERATIONS MANAGER) Anatomical Region Laterality Modality Head Computed Tomogra phy 07/09/2024 9:47 AM BIODIESEL OPERATIONS MANAGER Impressions 07/09/2024 10:08 AM BIODIESEL OPERATIONS MANAGER IMPRESSION: 1. A 9 x 7 x 11 mm enhancing nodule in the thyroidectomy surgical bed likely represents a recurrent thyroid cancer. 2. A 16 x 10 mm enhancing lesion in the lateral aspect of the right insula is grossly unchanged since the previous brain MRI dated 11/05/2023. Given the interval stability, this may represent a benign lesion. However, given history of malignancy, a follow-up brain MRI without and with contrast is recommended to document stability. 3. Extensive postoperative changes of posterior spinal fusion from C2 to T2 levels with 2 vertical rods and multiple lateral mass/transpedicular screws along with laminotomies at C3-C7 levels. Extensive streaky and beam hardening artifacts from the instrumentation significantly degraded the examination and obscured the adjacent structures. The known metastatic lesions to the C2, C4, C5, C6 and T1 vertebral bodies and the posterior elements are better visualized on the previous MRI. 4. Given the presence of extensive streak and beam hardening artifacts from the spinal fusion instrumentation which can obscure abnormalities, a PET/CT should be considered to further evaluate of other potential metastatic lesions. > Interpreting Provider: William Qiu MD on 07/09/2024 10:08 AM Narrative 07/09/2024 10:08 AM BIODIESEL OPERATIONS MANAGER PROCEDURE: ??CT NECK SOFT TISSUE W CONT, DATE/TIME OF EXAM: ??07/07/2024 12:12 PM, LOCATION ??[facility] INDICATION: C73: Papillary carcinoma of thyroid (HCC) ADDITIONAL CLINICAL INFORMATION: Ordering Provider Reason For Exam: Technologist Note: Additional: TECHNIQUE: CT of the neck was performed following the uneventful administration of intravenous contrast according to standard protocol. Contrast: IOPAMIDOL 76 % IV SOLN:50 mL COMPARISON: Neck soft tissue CT dated 01/28/2022 and cervical spine MRI dated 02/25/2024. FINDINGS: Extensive postoperative changes of posterior spinal fusion from C2 to T2 levels with 2 vertical rods and multiple lateral mass/transpedicular screws along with laminotomies at C3-C7 levels. Extensive streaky and beam hardening artifacts from the instrumentation significantly degraded the examination and obscured the adjacent structures. The known metastatic lesions to the C2, C4, C5, C6 and T1 vertebral bodies and the posterior elements are better visualized on the previous MRI. Postoperative changes of total thyroidectomy are noted. There is a 9 x 7 x 11 mm enhancing nodule (series 3 image 98 and series 1 image 59 in the thyroidectomy surgical bed is concerning for recurrent cancer. There is a 16 x 10 mm enhancing lesion in the lateral aspect of the right insula. Multiple small subcentimeter lymph nodes are noted in both sides of the neck with no evidence of cervical lymphadenopathy. The muscles of the neck appear normal. There is atherosclerotic disease involving the carotid bifurcations. The internal jugular veins appear normal. Fascial planes are preserved and the deep spaces of the neck appear normal. The nasopharynx, oropharynx, hypopharynx and larynx appear normal. The visualized airway is patent. The visualized portions of the posterior fossa and brain appear normal. The cervical spine appears normal. The visible lung apices are clear. Procedure Note William Qiu MD - 07/09/2024 PROCEDURE: CT NECK SOFT TISSUE W CONT, DATE/TIME OF EXAM: :12 PM, LOCATION [facility] INDICATION: C73: Papillary carcinoma of thyroid (HCC) ADDITIONAL CLINICAL INFORMATION: Ordering Provider Reason For Exam: Technologist Note: Additional: TECHNIQUE: CT of the neck was performed following the uneventful administration of intravenous contrast according to standard protocol. Contrast: IOPAMIDOL 76 % IV SOLN:50 mL COMPARISON: Neck soft tissue CT dated 01/28/2022 and cervical spine MRI dated 02/25/2024. FINDINGS: Extensive postoperative changes of posterior spinal fusion from C2 to T2 levels with 2 vertical rods and multiple lateral mass/transpedicularscrews along with laminotomies at C3-C7 levels. Extensive streaky and beam hardening artifacts from the instrumentation significantly degraded the examination and obscured the adjacent structures. The known metastatic lesions to the C2, C4, C5, C6 and T1 vertebralbodies and the posterior elements are better visualized on the previous MRI. Postoperative changes of total thyroidectomy are noted. There is a 9 x 7x 11 mm enhancing nodule (series 3 image 98 and series 1 image 59 in the thyroidectomy surgical bed is concerning for recurrent cancer. There is a 16 x 10 mm enhancing lesion in the lateral aspect of theright insula. Multiple small subcentimeter lymph nodes are noted in both sides of the neck with no evidence of cervical lymphadenopathy. The muscles of theneck appear normal. There is atherosclerotic disease involving the carotid bifurcations. The internal jugular veins appear normal. Fascial planesare preserved and the deep spaces of the neck appear normal. Thenasopharynx, oropharynx, hypopharynx and larynx appear normal. The visualized airwayis patent. The visualized portions of the posterior fossa and brain appear normal.The cervical spine appears normal. The visible lung apices are clear. IMPRESSION: 1. A 9 x 7 x 11 mm enhancing nodule in the thyroidectomy surgical bed likely represents a recurrent thyroid cancer. 2. A 16 x 10 mm enhancing lesion in the lateral aspect of the rightinsula is grossly unchanged since the previous brain MRI dated 11/05/2023. Giventhe interval stability, this may represent a benign lesion. However, given history of malignancy, a follow-up brain MRI without and with contrastis recommended to document stability. 3. Extensive postoperative changes of posterior spinal fusion from C2 toT2 levels with 2 vertical rods and multiple lateral mass/transpedicularscrews along with laminotomies at C3-C7 levels. Extensive streaky and beam hardening artifacts from the instrumentation significantly degraded the examination and obscured the adjacent structures. The known metastatic lesions to the C2, C4, C5, C6 and T1 vertebral bodies and the posterior elements are better visualized on the previous MRI. 4. Given the presence of extensive streak and beam hardening artifactsfrom the spinal fusion instrumentation which can obscure abnormalities, aPET/CT should be considered to further evaluate of other potential metastatic lesions. > Interpreting Provider: William Qiu MD on 07/09/2024 10:08 AM Remi Beckett MD CT ORDERABLES * CT Chest Abdomen Pelvis W Cont (07/07/2024 12:08 PM BIODIESEL OPERATIONS MANAGER) Anatomical Region Laterality Modality Chest, Abdomen, Pelvis Computed Tomography 07/07/2024 1:01 PM BIODIESEL OPERATIONS MANAGER Impressions 07/07/2024 4:00 PM BIODIESEL OPERATIONS MANAGER Impression: 1.Changes of total thyroidectomy. 2.Minimal enhancement around the gallbladder fundus, this can be seen in adenomyomatosis. Right upper quadrant ultrasound may be obtained for further evaluation if clinically indicated. 3.Partially imaged osseous changes in the lower cervical and upper thoracic spine at site of treated metastasis are better evaluated on MRI from 11/23/2023. > Dictated by Donald NATH, [facility] ??(interventional radiology rn). IVaishali MD have personally reviewed and interpreted this examination/study. > Interpreting Provider: Vaishali Herrera MD on 07/07/2024 4:00 PM Narrative 07/07/2024 4:00 PM BIODIESEL OPERATIONS MANAGER PROCEDURE: ??CT CHEST ABDOMEN PELVIS W CONT, DATE/TIME OF EXAM: ??07/07/2024 12:09 PM, LOCATION ??[facility] INDICATION: C73: Papillary carcinoma of thyroid (HCC) COMPARISON: PET\CT 10/06/2023 MRI cervical spine 11/23/2023 TECHNIQUE: CT of the chest, abdomen, and pelvis was performed after the uneventful administration of 100 mL of Isovue 370 intravenous contrast according to standard protocol. Findings: Chest: Tubes and lines: None. Lower Neck and Axillae: Normal. Lungs: No pulmonary parenchymal or airway process is present. Small granuloma right upper lobe. No suspicious pulmonary nodules are identified. No pleural fluid or pneumothorax is present. Heart and Pericardium: The cardiac chambers are normal in size. No pericardial fluid or thickening is present. Mediastinum and Shi: No mediastinal hemorrhage is present. No enlarged lymph nodes are present. Thoracic Vasculature: No vascular abnormality is present. Abdomen/pelvis: Liver: Normal. Gallbladder and Bile Ducts: Minimal thickening at the gallbladder fundus, may represent gallbladder adenomyomatosis. Spleen: Normal. Pancreas: Normal. Adrenals: Normal. Kidneys: Bilateral renal scarring. There is hydronephrosis. Gastrointestinal: The stomach and visualized loops of large and small bowel are unremarkable. Normal appendix. Mesentery/Peritoneum/Retroperitoneum: No free intraperitoneal air. No free fluid in the abdomen or pelvis. Pelvis: The bladder is partially distended. The uterus is present. Abdominal Vasculature: Atherosclerotic calcification of the aorta and its branch vessels. Bones: Bone windows demonstrate no suspicious lytic or blastic lesions. The visible osseous structures are intact. Severe osteoarthritic changes of the left hip joint with xdlq-gr-exhi contact. Partially imaged posterior spinal fusion hardware. Bone changes in the left aspect of partially imaged C7 at the site of treated metastasis. Soft tissues: Normal. Procedure Note Lorena Herrera MD - 07/07/2024 PROCEDURE: CT CHEST ABDOMEN PELVIS W CONT, DATE/TIME OF EXAM: 07/07/2024 12:09 PM, LOCATION [facility] INDICATION: C73: Papillary carcinoma of thyroid (HCC) COMPARISON: PET\CT 10/06/2023 MRI cervical spine 11/23/2023 TECHNIQUE: CT of the chest, abdomen, and pelvis was performed after the uneventful administration of 100 mL of Isovue 370 intravenous contrast according to standard protocol. Findings: Chest: Tubes and lines: None. Lower Neck and Axillae: Normal. Lungs: No pulmonary parenchymal or airway process is present. Small granuloma right upper lobe. No suspicious pulmonary nodules are identified. No pleural fluid or pneumothorax is present. Heart and Pericardium: The cardiac chambers are normal in size. No pericardial fluid orthickening is present. Mediastinum and Shi: No mediastinal hemorrhage is present. No enlarged lymph nodes arepresent. Thoracic Vasculature: No vascular abnormality is present. Abdomen/pelvis: Liver: Normal. Gallbladder and Bile Ducts: Minimal thickening at the gallbladder fundus, may represent gallbladder adenomyomatosis. Spleen: Normal. Pancreas: Normal. Adrenals: Normal. Kidneys: Bilateral renal scarring. There is hydronephrosis. Gastrointestinal: The stomach and visualized loops of large and small bowel areunremarkable. Normal appendix. Mesentery/Peritoneum/Retroperitoneum: No free intraperitoneal air. No free fluid in the abdomen or pelvis. Pelvis: The bladder is partially distended. The uterus is present. Abdominal Vasculature: Atherosclerotic calcification of the aorta and its branch vessels. Bones: Bone windows demonstrate no suspicious lytic or blastic lesions. The visible osseous structures are intact. Severe osteoarthritic changes ofthe left hip joint with [id number]-xl-cgdu contact. Partially imaged posteriorspinal fusion hardware. Bone changes in the left aspect of partially imaged C7at the site of treated metastasis. Soft tissues: Normal. Impression: 1.Changes of total thyroidectomy. 2.Minimal enhancement around the gallbladder fundus, this can be seen in adenomyomatosis. Right upper quadrant ultrasound may be obtained for further evaluation if clinically indicated. 3.Partially imaged osseous changes in the lower cervical and upperthoracic spine at site of treated metastasis are better evaluated on MRI from 11/23/2023. > Dictated by Donald NATH [facility] (interventional radiology rn). IVaishali MD have personally reviewed and interpreted this examination/study. > Interpreting Provider: Vaishali Herrera MD on 07/07/2024 4:00 PM Remi Beckett MD CT ORDERABLES * MRI Cervical Spine Wwo Cont (07/06/2024 1:17 PM BIODIESEL OPERATIONS MANAGER) Anatomical Region Laterality Modality Spine Magnetic Resonan ce 07/06/2024 3:40 PM BIODIESEL OPERATIONS MANAGER Impressions 07/07/2024 6:34 AM BIODIESEL OPERATIONS MANAGER IMPRESSION: 1. 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 No definite evidence of severe central canal stenosis or intramedullary tumor is seen. IMPRESSION: Normal cervical spine MRI performed without and with IV contrast. > Interpreting Provider: Primitivo Martin MD on 07/07/2024 6:34 AM Narrative 07/07/2024 6:34 AM BIODIESEL OPERATIONS MANAGER PROCEDURE: ??MRI CERVICAL SPINE WWO CONT DATE/TIME OF EXAM: ??07/06/2024 1:43 PM CLINICAL INFORMATION: None relevant/not provided if blank. Indication: C79.51: Secondary malignant neoplasm of bone (HCC) C79.51: Secondary malignant neoplasm of bone (HCC) Additional History: COMPARISON: None. TECHNIQUE: Cervical spine MRI was performed without and with IV contrast. CONTRAST: ?? GADOTERATE MEGLUMINE 0.5 MMOL/ML IV SSM SO:10 mL FINDINGS: Lateral spinal alignment appears normal. Multiple destructive lesions are seen within the cervical spine. There appears to be as destructive lesion in the C2 vertebral body, C4 vertebral body, C5 vertebral body, C6, and T1. Posterior spinal fusion hardware is noted throughout the cervical spine extending from C2 through T2. There is an area posterior to the C4-C7 vertebral bodies which could represent epidural extension of tumor which appears to be enhancing and is seen on images 21 through 27 series 14 abutting the central canal without evidence of severe stenosis. This can also be seen on image 10 series 15 and measures up to approximately 2.5 cm x 0.6 cm. More posteriorly there is an area along C7 and T1 which may represent epidural extension of malignancy measuring 2.6 x 0.6 cm on sagittal plane. No enhancing lesions are seen within the spinal cord. Some mild height loss of the C5 vertebral body is seen and could be related to pathologic fracture however no retropulsion is noted. Some of the sequences are significantly obscured by metallic streak artifact. Multilevel laminectomy changes are present. Procedure Note Primitivo Martin MD - 07/07/2024 PROCEDURE: MRI CERVICAL SPINE WWO CONT DATE/TIME OF EXAM: 07/06/2024 1:43 PM CLINICAL INFORMATION: None relevant/not provided if blank. Indication: C79.51: Secondary malignant neoplasm of bone (HCC) C79.51: Secondary malignant neoplasm of bone (HCC) Additional History: COMPARISON: None. TECHNIQUE: Cervical spine MRI was performed without and with IV contrast. CONTRAST: GADOTERATE MEGLUMINE 0.5 MMOL/ML IV SSM SO:10 mL FINDINGS: Lateral spinal alignment appears normal. Multiple destructive lesionsare seen within the cervical spine. There appears to be as destructivelesion in the C2 vertebral body, C4 vertebral body, C5 vertebral body, C6, andT1. Posterior spinal fusion hardware is noted throughout the cervical spine extending from C2 through T2. There is an area posterior to the C4-C7 vertebral bodies which could represent epidural extension of tumor which appears to be enhancing and is seen on images 21 through 27 series 14 abutting the central canal without evidence of severe stenosis. This can also be seen on image 10 series 15 and measures up to approximately 2.5cm x 0.6 cm. More posteriorly there is an area along C7 and T1 which may represent epidural extension of malignancy measuring 2.6 x 0.6 cm on sagittal plane. No enhancing lesions are seen within the spinal cord.Some mild height loss of the C5 vertebral body is seen and could be relatedto pathologic fracture however no retropulsion is noted. Some of thesequences are significantly obscured by metallic streak artifact. Multilevel laminectomy changes are present. IMPRESSION: 1. 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 No definite evidence of severe central canal stenosis or intramedullary tumor is seen. IMPRESSION: Normal cervical spine MRI performed without and with IV contrast. > Interpreting Provider: Primitivo Martin MD on 07/07/2024 6:34 AM Marcio Mcintosh MD MR ORDERABLES * THYROGLOBULIN REFLEX PROFILE (06/15/2024 2:41 PM BIODIESEL OPERATIONS MANAGER) Thyroglobulin Antibody <1.0 0.0 - 0.9 IU/mL 06/16/2024 4:09 PM BIODIESEL OPERATIONS MANAGER [facility] ([facility]) Comment: Thyroglobulin Antibody measured by [facility] Methodology It should be noted that the presence of thyroglobulin antibodies may not be pathogenic nor diagnostic, especially at very low levels. The assay medicinal chemist has found that four percent of individuals without evidence of thyroid disease or autoimmunity will have positive TgAb levels up to 4 IU/mL. Blood BLOOD SPECIMEN / Unknown Lab Venipuncture / Unknown 06/15/2024 2:41 PM BIODIESEL OPERATIONS MANAGER 06/15/2024 2:42 PM BIODIESEL OPERATIONS MANAGER Narrative [facility] ([facility]) - 06/16/2024 4:09 PM BIODIESEL OPERATIONS MANAGER Performed at: ??01 - [facility] [address], [place] ??[id number] Material Handling Supervisor: Oral Melendez PhD, Phone: ??[phone] Yosi Bustamante MD LAB - CHEMISTRY ORD ERABLES [facility] [address] [place] [address] * (ABNORMAL) THYROGLOBULIN BY ANTONIETA RFLXED (06/15/2024 2:41 PM BIODIESEL OPERATIONS MANAGER) Pathologist [facility] Thyroglobulin by ANTONIETA 100.7(H) 1.5 - 38.5 ng/mL 06/16/2024 4:09 PM BIODIESEL OPERATIONS MANAGER [facility] ([facility]) Comment: According to the National Academy of Clinical Biochemistry, the reference interval for Thyroglobulin (TG) should be related to euthyroid patients and not for patients who underwent thyroidectomy. TG reference intervals for these patients depend on the residual mass of the thyroid tissue left after surgery. Establishing a post-operative baseline is recommended. The assay limit of quantitation is 0.1 ng/mL Thyroglobulin measured by Lisbet Marcos Immunometric Assay Blood BLOOD SPECIMEN / Unknown Lab Venipuncture / Unknown 06/15/2024 2:41 PM BIODIESEL OPERATIONS MANAGER 06/15/2024 2:42 PM BIODIESEL OPERATIONS MANAGER Narrative [facility] ([facility]) - 06/16/2024 4:09 PM BIODIESEL OPERATIONS MANAGER Performed at: ??01 - [facility] [address], [place] ??[id number] Material Handling Supervisor: Oral Melendez PhD, Phone: ??[phone] Yosi Bustamante MD LAB - CHEMISTRY ORD ERABLES [facility] ([facility]) [address] [place] [address], [facility] * VITAMIN D 25-HYDROXY (06/15/2024 2:41 PM BIODIESEL OPERATIONS MANAGER) [facility] Vitamin D, 25 Hydroxy 47.3 30.0 - 80.0 ng/mL 06/15/2024 3:38 PM BIODIESEL OPERATIONS MANAGER [facility] Comment: The recommendations for 25-Hydroxy Vitamin D clinical decision points are as follows: ? Deficient: ? <20.0 ng/mL ? Insufficient: ? 20.0 - 29.9 ng/mL ? Sufficient: ? 30.0 - 100.0 ng/mL ? Potential Toxicity: ??>100 ng/mL Reference: The Endocrine Society Clinical Practice Guidelines. 2011 If the 25-Hydroxy Vitamin D results are inconsitent with clinical evidence, it is recommended that follow-up testing using a method such as LC/MS/MS be performed to confirm the result. ? Blood BLOOD SPECIMEN / Unknown Lab Venipuncture / Unknown 06/15/2024 2:41 PM BIODIESEL OPERATIONS MANAGER 06/15/2024 2:47 PM BIODIESEL OPERATIONS MANAGER Remi Beckett MD LAB - CHEMISTRY ORDERABLES Performing Organization Address City/State/[facility] Co de Phone Number [facility] [address] [place] [address], [facility] [phone] * (ABNORMAL) CBC WITH DIFFERENTIAL (06/15/2024 2:41 PM BIODIESEL OPERATIONS MANAGER) WBC 9.8 4.0 - 10.7 x10E9/L 06/15/2024 2:55 PM [facility] RBC Count 5.23(H) 3.90 - 5.20 x10E12/L 06/15/2024 2:55 PM [facility] Hemoglobin 16.0(H) 11.9 - 15.8 g/dL 06/15/2024 2:55 PM [facility] Hematocrit 45.9 34.8 - 46.1 % 06/15/2024 2:55 PM [facility] MCV 87.8 80.0 - 98.0 fL 06/15/2024 2:55 PM [facility] MCH 30.6 26.7 - 33.6 pg 06/15/2024 2:55 PM [facility] MCHC 34.9 31.7 - 36.3 g/dL 06/15/2024 2:55 PM [facility] RDW-CV 13.5 11.3 - 14.8 % 06/15/2024 2:55 PM [facility] Platelet Count 285 150 - 420 x10E9/L 06/15/2024 2:55 PM [facility] [facility] MPV 9.5 7.8 - 11.4 fL 06/15/2024 2:55 PM [facility] Neutrophil % 68.5 41.0 - 74.0 % 06/15/2024 2:55 PM [facility] Lymphocyte % 20.6 17.0 - 47.0 % 06/15/2024 2:55 PM [facility] Monocyte % 9.0 3.0 - 11.0 % 06/15/2024 2:55 PM [facility] Eosinophil % 1.2 0.0 - 7.0 % 06/15/2024 2:55 PM [facility] Basophil % 0.5 0.0 - 1.6 % 06/15/2024 2:55 PM [facility] Immature Granulocytes % 0.2 0.0 - 1.0 % 06/15/2024 2:55 PM [facility] Neutrophil Absolute 6.69 1.60 - 7.50 x10E9/L 06/15/2024 2:55 PM [facility] Lymphocyte Absolute 2.01 1.00 - 4.40 x10E9/L 06/15/2024 2:55 PM [facility] Monocyte Absolute 0.88 0.15 - 1.00 x10E9/L 06/15/2024 2:55 PM [facility] Eosinophil Absolute 0.12 0.00 - 0.60 x10E9/L 06/15/2024 2:55 PM [facility] Basophil Absolute 0.05 0.00 - 0.13 x10E9/L 06/15/2024 2:55 PM [facility] Blood BLOOD SPECIMEN / Unknown Lab Venipuncture / Unknown 06/15/2024 2:41 PM [employer] 06/15/2024 2:47 PM [employer] Remi Beckett MD LAB - HEMATOLOGY ORDERABLES Performing Organization Address [facility] Co de Phone Number [address] [phone], [facility] [phone] * (ABNORMAL) COMPREHENSIVE METABOLIC PANEL (06/15/2024 2:41 PM [employer]PERATIONS MANAGER) BUN 28(H) 7 - 26 mg/dL 06/15/2024 3:20 PM [facility] Creatinine 0.86 0.56 - 0.96 mg/dL 06/15/2024 3:20 PM [facility] Sodium 138 136 - 145 mmol/L 06/15/2024 3:20 PM [facility] Potassium 4.1 3.5 - 4.5 mmol/L 06/15/2024 3:20 PM [facility] Chloride 103 98 - 107 mmol/L 06/15/2024 3:20 PM [facility] CO2 22 22 - 29 mmol/L 06/15/2024 3:20 PM [facility] Glucose 104(H) 70 - 99 mg/dL 06/15/2024 3:20 PM [facility] Calcium 10.2 8.4 - 10.2 mg/dL 06/15/2024 3:20 PM [facility] Protein Total 8.1 6.0 - 8.3 g/dL 06/15/2024 3:20 PM [facility] Albumin 4.0 3.4 - 5.0 g/dL 06/15/2024 3:20 PM [facility] Bilirubin Total 0.3 0.2 - 1.2 mg/dL 06/15/2024 3:20 PM [facility] Alkaline Phosphatase 78 40 - 150 U/L 06/15/2024 3:20 PM [facility] ALT 13 5 - 55 U/L 06/15/2024 3:20 PM [facility] AST 16 5 - 34 U/L 06/15/2024 3:20 PM [facility] Anion Gap 13 6 - 16 06/15/2024 3:20 PM [facility] BUN/Creatinine Ratio 33(H) 7 - 23 06/15/2024 3:20 PM [facility] Osmolality Calculated 292 275 - 295 mOsm/kg 06/15/2024 3:20 PM [facility] Albumin/Globulin Ratio 1.0(L) 1.1 - 2.3 06/15/2024 3:20 PM [facility] eGFR by CKD-EPI 75(L) >=90 mL/min/1.7 3 m2 06/15/2024 3:20 PM [facility] Blood BLOOD SPECIMEN / Unknown Lab Venipuncture / Unknown 06/15/2024 2:41 PM [employer] 06/15/2024 2:47 PM [employer] Remi Beckett MD LAB - CHEMISTRY ORDERABLES [address] [address], [facility] [phone] * (ABNORMAL) PHOSPHORUS BLOOD (06/15/2024 2:41 PM [employer]GER) Phosphorus 6.5(H) 2.9 - 5.1 mg/dL 06/15/2024 3:20 PM [employer]ATIONS [employer] [facility] Blood BLOOD SPECIMEN / Unknown Lab Venipuncture / Unknown 06/15/2024 2:41 PM [employer]PERATIONS MANAGER 06/15/2024 2:47 PM [employer] MANAGER Yosi Bustamante MD LAB - CHEMISTRY ORD ERABLES Performing Organization Address [facility] Co de Phone Number [address] [phone], [facility] [phone] * MAGNESIUM BLOOD (06/15/2024 2:41 PM [employer]PERATIONS MANAGER) Pathologist [facility] Magnesium 1.7 1.6 - 2.6 mg/dL 06/15/2024 3:20 PM [employer]ATIONS MANAGER [facility] Blood BLOOD SPECIMEN / Unknown Lab Venipuncture / Unknown 06/15/2024 2:41 PM [employer]PERATIONS MANAGER 06/15/2024 2:47 PM [employer] MANAGER Remi Beckett MD LAB - CHEMISTRY ORDERABLES Performing Organization Address [facility] Co de Phone Number [address] [phone], [facility] [phone] * (ABNORMAL) TSH (06/15/2024 2:41 PM [employer]PERATIONS MANAGER) TSH 0.029(L) 0.350 - 4.940 uIU/mL 06/15/2024 3:38 PM [employer]PERATIONS MANAGER [facility] Blood BLOOD SPECIMEN / Unknown Lab Venipuncture / Unknown 06/15/2024 2:41 PM [employer]PERATIONS MANAGER 06/15/2024 2:47 PM [employer]PER[employer] MANAGER Yosi Bustamante MD LAB - CHEMISTRY ORD ERABLES [facility] [address] [place] [address], [place] [phone] * HIV-1 HIV-2 ANTIBODY + HIV P24 AG PANEL (New on 11/18) (08/14/2022 3:21 PM [employer]PERATIONS MANAGER) Pathologist [facility] HIV Antigen/Antibod y 1 & 2 Non-reacti ve Non-react oswaldo 08/14/2022 4:18 PM [employer]PERATIONS MANAGER [facility] Comment:No Laboratory eviden ce of HIV infection. Blood BLOOD SPECIMEN / Unknown Lab Venipuncture / Unknown 08/14/2022 3:21 PM [employer]NAGER 08/14/2022 3:33 PM [employer] MANAGER Adriana Adams DO LAB - CHEMISTRY ORDSrinivas WEAVER Performing Organization Address [facility]/ZIP Co de Phone Number [address] [address], [place] [phone] * SCAN ONLY HIS OPIOID MED AGREEMENT (11/04/2020) Historical Provider MD SCANNING ONLY * HEPATITIS C AB SCREEN RFLX NAAT QUANT (03/07/2020 3:19 PM CDT) Pathologist [facility] Hepatitis C Antibody Non-react oswaldo Non-reac tive 03/07/2020 4:28 PM CDT [facility] Comment:Hepatitis C Antibody screen indicates no serologic evidence of past or current infection with Hepatitis C Virus. Patients with unexplained liver disease who are immunocompromised or suspected of having acute Hepatitis C infection may benefit from Nucleic Acid Test (MICHAEL) for Hepatitis C Viral RNA to confirm Hepatitis C status. Blood BLOOD SPECIMEN / Unknown Lab Venipuncture / Unknown 03/07/2020 3:19 PM CDT 03/07/2020 3:43 PM CDT Marylu Marie DO LAB - CHEMISTRY ORDE OWEN [address] [address], [place] [phone] * HPV DETECTION HIGH RISK LEE (11/23/2019 10:00 AM CDT) High Risk Human Papilloma Result Not Detected Not Detected 11/28/2019 3:43 PM CDT [facility] High Risk Human Papilloma Interp 11/28/2019 3:43 PM CDT [facility] Comment:High Risk Human Taurus lloma Virus was Not Detected. Pathology/Cytolo gy MISCELLANEOUS SAMPLES / Unknown 11/23/2019 10:00 AM CDT 11/24/2019 11:39 AM CDT Narrative [facility] - 11/28/2019 3:43 PM CDT Nucleic acid isolated from the specimen was analyzed with a nucleic acid amplification test (FDA approved Gen-Probe HPV Assay) to detect high risk human papilloma virus (Types: 16, 18, 31, 33, 35, 39, 45, 51, 52, 56, 58, 59, 66, and 68). ??The reference range is Not Detected. Comment: These test results should not be used as the sole basis for clinical assessment and treatment of patients. ??These results should always be correlated with other available data (cytology, histology, and clinical information). Lexii Dillard MD LAB - MICROB IOLOGY ORDERABLES [facility] [address] [phone] from Last 3 Months or Most Recently Relevant to Health Maintenance Advance Directives * Full Code (Latest Code Status on File) Date Activated Date Inactivated Comments 10/02/2022 10:55 AM 10/07/2022 1:12 PM * Full Code Date Activated Date Inactivated Comments 08/19/2020 4:54 PM 08/29/2020 12:30 PM Care Teams Movers Relationship Specialty Start Date End Date Yaya Villatoro MD [address] [facility] [address] [place] [phone] PCP - General Internal Medicine 05/04/23 Joseph Manzanares MD [address] [place] [phone] Internal Medicine 04/21/23
--- OUTSIDE RECORDS SUMMARY | 2024-07-23 07:06 | XMS_ITS | Patient Health Summary ---
Author Organization [facility] Address [address] [place] [address] Care Team Providers Care Shop Mechanic Name Role Phone Joseph Manzanares MD Unavailable Yaya Villatoro MD Primary Care Provider [phone] Note from [facility],non-owned Affiliates and Associated Physician Practices is amultiple site organization consisting of ambulatory clinics and hospital sitesin [place], [place], [place] and [place]. This disclosure is being madepursuant to the Care Everywhere program and may not contain all information available regarding this patient. Last updated 18.[facility] Allergies * Kiwi Extract(Anaphylaxis) -High Criticality * Shellfish Allergy(Other),Inactive Medications * Be aware that medications may not be up to date on this document. Alwaysverify current medications with the patient. * PARoxetine (PAXIL) 40 MG tablet(Started 11/14/2016) Take 1 (one) tablet by mouth once daily 2 refills left * famotidine (PEPCID) 20 MG tablet(Started 05/27/2020) Take 1 (one) tablet by mouth 2 times daily as needed * traZODone (DESYREL) 50 MG tablet(Started 06/25/2020) Take 1 (one) tablet by mouth at bedtime * oxybutynin CR 24hr (Ditropan-XL) 5 MG tablet(Started 06/10/2022) Take 1 (one) tablet by mouth once daily 4 refills by 06/10/2023 * buPROPion SR 12hr (Wellbutrin-SR) 100 MG tablet(Started 08/28/2022) Take 1 (one) tablet by mouth 2 times daily * celecoxib (CeleBREX) 200 MG capsule(Started 10/27/2022) Take 1 (one) capsule by mouth once daily 3 refills by 10/06/2023 * cyclobenzaprine (Flexeril) 5 MG tablet(Started 11/19/2022) Take 1 (one) tablet by mouth 3 times daily as needed 1 refill by 11/19/2023 * gabapentin (Neurontin) 300 MG capsule(Started 11/19/2022) Take 1 (one) capsule by mouth 3 times daily 5 refills by 11/19/2023 * pantoprazole EC (Protonix) 40 MG tablet(Started 02/03/2023) TAKE ONE TABLET BY MOUTH ONCE DAILY FOR STOMACH * naloxone HCl (Narcan) 4 MG/0.1ML nasal spray [place] 1 (one) spray into the nose as needed * atorvastatin (Lipitor) 40 MG tablet(Started 04/21/2023) TAKE 1 TABLET BY MOUTH EVERYDAY AT BEDTIME 1 refill by 04/20/2024 * fluticasone propionate (Flonase) 50 MCG/ACT nasal spray(Started 06/01/2023) SPRAY 2 SPRAYS INTO EACH NOSTRIL EVERY DAY 1 refill by 05/31/2024 * calcitriol (Rocaltrol) 0.5 MCG capsule(Started 06/14/2023) Take 1 (one) capsule by mouth once daily Reasons: Low Amount of Calcium in the Blood 3 refills by 06/13/2024 * hydrOXYzine HCl (Atarax) 25 MG tablet(Started 07/15/2023) Take 1 (one) tablet to 2 (two) tablets by mouth as needed * levothyroxine (Synthroid) 112 MCG tablet(Started 10/25/2023) Take 1 (one) tablet by mouth daily before breakfast Reasons: Cancer of Thyroid, Underactive Thyroid 3 refills by 10/24/2024 * ibuprofen (Motrin) 200 MG tablet Take 4 (four) tablets by mouth 4 times daily * ondansetron (Zofran) 8 MG tablet(Started 12/10/2023) Take one tablet by mouth once a day 1 hour before anticancer drug and one tablet every 8 hours as needed for breakthrough nausea/vomiting. Reasons: Nausea and Vomiting caused by Cancer Chemotherapy 11 refills by 12/09/2024 * prochlorperazine (Compazine) 10 MG tablet(Started 12/10/2023) Take 1 (one) tablet by mouth every 6 hours as needed for Nausea/Vomiting 11 refills by 12/09/2024 * diphenhydrAMINE/maalox/lidocaine visc 1:1:1 (Magic Mouthwash) suspension (Started 02/25/2024) Swish and swallow 10 mL every 6 hours as needed 5 refills by 02/24/2025 * acetaminophen (Tylenol) 500 MG tablet Take 2 (two) tablets by mouth Every 6 Hours (03,09,15,21) * clobetasol (Temovate) 0.05 % ointment Apply to affected area 2 times daily as needed * calcium 500 mg tablet(Started 06/15/2024) Take 1 (one) tablet by mouth daily with food * vitamin D3 (Cholecalciferol) 10 MCG (400 UNIT) tablet(Started 06/15/2024) Take 1 (one) tablet by mouth once daily * Lenvima, 14 MG Daily Dose, 10 & 4 MG capsule(Started 07/06/2024) TAKE 1 CAPSULE (10MG) AND 1 CAPSULE (4MG) ONCE DAILY FOR A TOTAL OF 14MG 2 refills by 07/06/2025 Ended Medications* lenvatinib (Lenvima) 10 & 4 MG capsule(Started 04/17/2024) (Discontinued) Take one 10 mg capsule and one 4 mg capsule (14 mg total) once daily. 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 Lymphadenopathy of head and neck region 07/24/19 21 High cholesterol 09/06/2019 Primary osteoarthritis of left hip 12/07/2018 Psychophysiologic insomnia 11/19/2016 Chronic fatigue 11/19/2016 Snoring 11/19/2016 Obsessive-compulsive disorder 11/19/2016 Headache 11/19/2016 Nicotine dependence 11/19/2016 Other psoriasis Immunizations * COVID PFIZER BIVALENT 12Y+ 30mcg/0.3ML(Given 10/21/2022) * Covid Pfizer primary monovalent 12+ yr 0.3mL Purple cap(Given 12/08/2021, 06/10/2021, 10/20/2020, 09/29/2020) * FLU VACCINE TRI IIV3 SPLIT IM (FLUVIRIN)(Given 04/29/2015) * INFLUENZA VACCINE(Given 05/31/2021, 05/12/2017, 04/15/2016, 04/29/2015) * INFLUENZA VACCINE, CELL CULTURE, QUADR. (FLUCELVAX QUADRIVALENT; 6MO+) (CCIIV4)(Given 05/13/2020) * INFLUENZA VACCINE, QUADR. (AFLURIA, FLUZONE QUADRIVALENT; 6MO+) (IIV4)(Given 05/12/2017, 04/15/2016) * INFLUENZA VACCINE, QUADR. (FLUZONE; FLULAVAL; FLUARIX; AFLURIA QUADRIVALENT; 6MO+), 0.5 ML (IIV4)(Given 05/31/2021, 03/22/2019) * PNEUMOCOCCAL PCV20 CONJ VAC IM(Given 08/12/2022, 08/12/2022) * Pneumococcal Pcv13 Conj(Given 06/22/2018) * TDAP (7yrs+)(Given 02/05/2016) * Zoster Hzv Vacc Recombinant Inj Im(Given 10/21/2022) * iNFLUENZA VACCINE, RECOM-NG, QUADR. (FLUBLOCK QUADRIVALENT; 18Y+) (RIV4)(Given 06/10/2022) Social History Tobacco Use Types Packs/Day Years [...] Recorded Patient Health Questionnaire-2 Score 0 07/06/2024 [facility] [place] of Occupat ional Health - Occupational Stress [...] place to sleep or slept in a senior care (including now)? No 10/02/2022 Sex and Gender Information Value Date Recorded Sex Assigned at Not on file Gender Identity Not on file Sexual Orientation Not on file Last Filed Vital Signs Vital Sign Reading Time Taken Comments Blood Pressure 129/57 07/06/2024 1:53 PM SENIOR SOFTWARE QUALITY ENGINEER Pulse 85 07/06/2024 1:53 PM SENIOR SOFTWARE QUALITY ENGINEER Temperature 36.4 ??C (97.5 ??F) 07/06/2024 1:53 PM CS T Respiratory Rate 18 07/06/2024 1:53 PM SENIOR SOFTWARE QUALITY ENGINEER Oxygen Saturation 95% 07/06/2024 1:53 PM SENIOR SOFTWARE QUALITY ENGINEER Inhaled Oxygen Concentration - - Weight 49.3 kg (108 lb 11.2 oz) 06/15/2024 3:01 PM SENIOR SOFTWARE QUALITY ENGINEER Height 157.5 cm (5' 2) 03/20/2024 2:39 PM CDT Body Mass Index 19.88 03/20/2024 2:39 PM CDT Medical Devices Implanted Type Area Professional Development Instructor Device Identifier Shelf Expiration Date Model / Serial / Lot Savage Bone Void Ca Slf Stimulan Implanted:Qty: 1 on 10/02/2022 by Coy Gómez MD at [facility] N/A: Spine Cervical Biocompstes 04/03/2025 620-005 / / [id number] Description:mixed with 500mg vancomycin powder Screw Set M6 Spne Oc Upr Thor Infnt Implanted:Qty: 11 on 10/02/2022 by Coy Gómez MD at [facility] N/A: Spine Cervical Medtronic Sofamor Danek Spine [id number] / / Donovan Spnl 240mm 3.5mm Std Implanted:Qty: 1 on 10/02/2022 by Coy Gómez MD at [facility] N/A: Spine Cervical Medtronic Inc [id number] / / Savage Bone Void 10ml Dbm Grftn Algrf Ptty Implanted:Qty: 1 on 10/02/2022 by Coy Gómez MD at [facility] N/A: Spine Cervical Medtronic Inc [id number] / / Screw 3.5mm 16mm Ma Spne Bone Implanted:Qty: 4 on 10/02/2022 by Coy Gómez MD at [facility] N/A: Spine Cervical Medtronic Inc [id number] / / Screw 3.5mm 20mm Ma Spne Bone Implanted:Qty: 1 on 10/02/2022 by Coy Gómez MD at [facility] N/A: Spine Cervical Medtronic Inc [id number] / / Screw 3.5mm 18mm Ma Spne Bone Implanted:Qty: 1 on 10/02/2022 by Coy Gómez MD at [facility] N/A: Spine Cervical Medtronic Inc [id number] / / Screw 3.5mm 22mm Ma Spne Bone Implanted:Qty: 1 on 10/02/2022 by Coy Gómez MD at [facility] N/A: Spine Cervical Medtronic Inc [id number] / / Screw 4mm 20mm Ma Spne Bone Implanted:Qty: 1 on 10/02/2022 by Coy Gómez MD at [facility] N/A: Spine Cervical Medtronic Inc [id number] / / Screw 4.5mm 28mm Ma Spne Bone Implanted:Qty: 2 on 10/02/2022 by Coy Gómez MD at [facility] N/A: Spine Cervical Medtronic Inc [id number] / / Screw 4.5mm 32mm Ma Spne Infnt Nonster Implanted:Qty: 1 on 10/02/2022 by Coy Gómez MD at [facility] N/A: Spine Cervical Medtronic Inc [id number] / / Procedures * NM BONE SCAN WHOLE BODY(Performed 07/07/2024) Performed for Cancer, metastatic to bone (HCC) * CT NECK SOFT TISSUE W CONT(Performed 07/07/2024) Performed for Papillary carcinoma of thyroid (HCC) * CT CHEST ABDOMEN PELVIS W CONT(Performed 07/07/2024) Performed for Papillary carcinoma of thyroid (HCC) * MRI CERVICAL SPINE WWO CONT(Performed 07/06/2024) Performed for Metastasis to bone (HCC), Secondary malignant neoplasm of bone (HCC) * THYROGLOBULIN BY ANTONIETA RFLXED(Performed 06/15/2024) Performed for Thyroid cancer (HCC), Postoperative hypothyroidism, Malignant tumor of thyroid gland (HCC), Cancer, metastatic to bone (HCC), Hypocalcemia, Other hypoparathyroidism (HCC), Papillary carcinoma of thyroid (HCC) * MAGNESIUM BLOOD(Performed 06/15/2024) * VITAMIN D 25-HYDROXY(Performed 06/15/2024) * PHOSPHORUS BLOOD(Performed 06/15/2024) Performed for Postoperative hypothyroidism, Thyroid cancer (HCC), Hypocalcemia, Other hypoparathyroidism (HCC), Malignant tumor of thyroid gland (HCC), Cancer, metastatic to bone (HCC) * THYROGLOBULIN REFLEX PROFILE(Performed 06/15/2024) Performed for Thyroid cancer (HCC), Postoperative hypothyroidism, Malignant tumor of thyroid gland (HCC), Cancer, metastatic to bone (HCC), Hypocalcemia, Other hypoparathyroidism (HCC), Papillary carcinoma of thyroid (HCC) * TSH(Performed 06/15/2024) Performed for Thyroid cancer (HCC), Postoperative hypothyroidism, Malignant tumor of thyroid gland (HCC), Cancer, metastatic to bone (HCC), Hypocalcemia, Other hypoparathyroidism (HCC), Papillary carcinoma of thyroid (HCC) * COMPREHENSIVE METABOLIC PANEL(Performed 06/15/2024) Performed for Papillary carcinoma of thyroid (HCC) * CBC W AUTO DIFFERENTIAL(Performed 06/15/2024) Performed for Papillary carcinoma of thyroid (HCC) * CBC W AUTO DIFFERENTIAL(Performed 04/17/2024) Performed for Encounter for antineoplastic chemotherapy, Papillary carcinoma of thyroid (HCC) * COMPREHENSIVE METABOLIC PANEL(Performed 04/17/2024) Performed for Encounter for antineoplastic chemotherapy, Papillary carcinoma of thyroid (HCC) * THYROGLOBULIN BY ANTONIETA RFLXED(Performed 03/20/2024) Performed for Thyroid cancer (HCC), Postoperative hypothyroidism, Malignant tumor of thyroid gland (HCC), Cancer, metastatic to bone (HCC), Hypocalcemia, Other hypoparathyroidism, Papillary carcinomaof thyroid (HCC) * PHOSPHORUS BLOOD(Performed 03/20/2024) Performed for Postoperative hypothyroidism, Thyroid cancer (HCC), Hypocalcemia, Other hypoparathyroidism, Malignant tumor of thyroid gland (HCC), Cancer, metastatic to bone (HCC) * THYROGLOBULIN REFLEX PROFILE(Performed 03/20/2024) Performed for Thyroid cancer (HCC), Postoperative hypothyroidism, Malignant tumor of thyroid gland (HCC), Cancer, metastatic to bone (HCC), Hypocalcemia, Other hypoparathyroidism, Papillary carcinomaof thyroid (HCC) * TSH(Performed 03/20/2024) Performed for Thyroid cancer (HCC), Postoperative hypothyroidism, Malignant tumor of thyroid gland (HCC), Cancer, metastatic to bone (HCC), Hypocalcemia, Other hypoparathyroidism, Papillary carcinomaof thyroid (HCC) * COMPREHENSIVE METABOLIC PANEL(Performed 03/20/2024) Performed for Papillary carcinoma of thyroid (HCC) * CBC W AUTO DIFFERENTIAL(Performed 03/20/2024) Performed for Papillary carcinoma of thyroid (HCC) * THYROGLOBULIN BY ANTONIETA RFLXED(Performed 03/07/2024) Performed for Thyroid cancer (HCC), Postoperative hypothyroidism, Malignant tumor of thyroid gland (HCC), Cancer, metastatic to bone (HCC), Hypocalcemia, Other hypoparathyroidism, Papillary carcinomaof thyroid (HCC) * PHOSPHORUS BLOOD(Performed 03/07/2024) Performed for Postoperative hypothyroidism, Thyroid cancer (HCC), Hypocalcemia, Other hypoparathyroidism, Malignant tumor of thyroid gland (HCC), Cancer, metastatic to bone (HCC) * THYROGLOBULIN REFLEX PROFILE(Performed 03/07/2024) Performed for Thyroid cancer (HCC), Postoperative hypothyroidism, Malignant tumor of thyroid gland (HCC), Cancer, metastatic to bone (HCC), Hypocalcemia, Other hypoparathyroidism, Papillary carcinomaof thyroid (HCC) * TSH(Performed 03/07/2024) Performed for Thyroid cancer (HCC), Postoperative hypothyroidism, Malignant tumor of thyroid gland (HCC), Cancer, metastatic to bone (HCC), Hypocalcemia, Other hypoparathyroidism, Papillary carcinomaof thyroid (HCC) * COMPREHENSIVE METABOLIC PANEL(Performed 03/07/2024) Performed for Papillary carcinoma of thyroid (HCC) * CBC W AUTO DIFFERENTIAL(Performed 03/07/2024) Performed for Papillary carcinoma of thyroid (HCC) * WA LARYNGOSCOPY,FLEX FIBER,DIAGNOSTIC(Performed 02/27/2024) Performed for Thyroid cancer (HCC), Odynophagia * MRI CERVICAL SPINE WWO CONT(Performed 02/25/2024) Performed for Thyroid cancer (CMS/HCC), Metastasis to bone (HCC), Papillary carcinoma of thyroid (HCC), Secondary malignant neoplasm of bone (HCC), Cervical spine tumor, Cancer, metastatic to bone (HCC) * PET CT WHOLE BODY(Performed 02/25/2024) Performed for Thyroid cancer (CMS/HCC), Metastasis to bone (HCC), Papillary carcinoma of thyroid (HCC), Secondary malignant neoplasm of bone (HCC), Cervical spine tumor, Cancer, metastatic to bone (HCC) * GLUCOSE SCREEN - POCT (IP) [facility](Performed 02/25/2024) * COMPREHENSIVE METABOLIC PANEL(Performed 02/07/2024) Performed for Papillary carcinoma of thyroid (HCC) * CBC W AUTO DIFFERENTIAL(Performed 02/07/2024) Performed for Papillary carcinoma of thyroid (HCC) * COMPREHENSIVE METABOLIC PANEL(Performed 01/14/2024) Performed for Papillary carcinoma of thyroid (HCC) * CBC W AUTO DIFFERENTIAL(Performed 01/14/2024) Performed for Papillary carcinoma of thyroid (HCC) * TEMPUS XT(Performed 12/10/2023) Performed for Papillary carcinoma of thyroid (HCC) * THYROGLOBULIN BY ANTONIETA RFLXED(Performed 12/10/2023) Performed for Postoperative hypothyroidism, Thyroid cancer (HCC), Hypocalcemia, Other hypoparathyroidism, Malignant tumor of thyroid gland (HCC), Cancer, metastatic to bone (HCC) * PHOSPHORUS BLOOD(Performed 12/10/2023) Performed for Postoperative hypothyroidism, Thyroid cancer (HCC), Hypocalcemia, Other hypoparathyroidism, Malignant tumor of thyroid gland (HCC), Cancer, metastatic to bone (HCC) * COMPREHENSIVE METABOLIC PANEL(Performed 12/10/2023) Performed for Malignant tumor of thyroid gland (HCC) * CBC W AUTO DIFFERENTIAL(Performed 12/10/2023) Performed for Malignant tumor of thyroid gland (HCC) * THYROGLOBULIN REFLEX PROFILE(Performed 12/10/2023) Performed for Postoperative hypothyroidism, Thyroid cancer (HCC), Hypocalcemia, Other hypoparathyroidism, Malignant tumor of thyroid gland (HCC), Cancer, metastatic to bone (HCC) * TSH(Performed 12/10/2023) Performed for Postoperative hypothyroidism, Thyroid cancer (HCC), Hypocalcemia, Other hypoparathyroidism, Malignant tumor of thyroid gland (HCC), Cancer, metastatic to bone (HCC) * MRI CERVICAL SPINE WWO CONT(Performed 11/23/2023) Performed for Cervical spine tumor, Cancer, metastatic to bone (HCC), Papillary carcinoma of thyroid (HCC) * MRI BRAIN WWO CONTRAST(Performed 11/05/2023) Performed for Malignant tumor of thyroid gland (HCC) * HEPATITIS B SURFACE ANTIGEN W RFLX CONFIRMATION(Performed 11/04/2023) Performed for Encounter for antineoplastic chemotherapy * HEPATITIS B SURFACE ANTIBODY(Performed 11/04/2023) Performed for Encounter for antineoplastic chemotherapy * HEPATITIS B CORE ANTIBODY TOTAL(Performed 11/04/2023) Performed for Encounter for antineoplastic chemotherapy * EKG 12-LEAD(Performed 11/01/2023) Performed for Malignant tumor of thyroid gland (HCC) * THYROGLOBULIN BY ANTONIETA RFLXED(Performed 10/25/2023) Performed for Postoperative hypothyroidism, Thyroid cancer (HCC), Hypocalcemia, Other hypoparathyroidism, Malignant tumor of thyroid gland (HCC), Cancer, metastatic to bone (HCC) * RENAL FUNCTION PANEL(Performed 10/25/2023) Performed for Postoperative hypothyroidism, Thyroid cancer (HCC), Hypocalcemia, Other hypoparathyroidism, Malignant tumor of thyroid gland (HCC), Cancer, metastatic to bone (HCC) * THYROGLOBULIN REFLEX PROFILE(Performed 10/25/2023) Performed for Postoperative hypothyroidism, Thyroid cancer (HCC), Hypocalcemia, Other hypoparathyroidism, Malignant tumor of thyroid gland (HCC), Cancer, metastatic to bone (HCC) * TSH(Performed 10/25/2023) Performed for Postoperative hypothyroidism, Thyroid cancer (HCC), Hypocalcemia, Other hypoparathyroidism, Malignant tumor of thyroid gland (HCC), Cancer, metastatic to bone (HCC) * WA US SOFT TISS HEAD&NCK R-T IMG(Performed 10/25/2023) Performed for Postoperative hypothyroidism, Thyroid cancer (HCC), Hypocalcemia, Other hypoparathyroidism, Malignant tumor of thyroid gland (HCC), Cancer, metastatic to bone (HCC) * RAD ONC ARIA SESSION SUMMARY(Performed 10/22/2023) * T4 FREE(Performed 10/21/2023) Performed for Malignant tumor of thyroid gland (HCC) * TSH REFLEX FREE T4(Performed 10/21/2023) Performed for Malignant tumor of thyroid gland (HCC) * COMPREHENSIVE METABOLIC PANEL(Performed 10/21/2023) Performed for Malignant tumor of thyroid gland (HCC) * CBC W AUTO DIFFERENTIAL(Performed 10/21/2023) Performed for Malignant tumor of thyroid gland (HCC) * TEMPUS BLOOD DRAW(Performed 10/21/2023) Performed for Malignant tumor of thyroid gland (HCC) * TEMPUS XF(Performed 10/21/2023) Performed for Malignant tumor of thyroid gland (HCC) * TEMPUS XT(Performed 10/21/2023) Performed for Malignant tumor of thyroid gland (HCC) * RAD ONC ARIA SESSION SUMMARY(Performed 10/21/2023) * RAD ONC ARIA SESSION SUMMARY(Performed 10/20/2023) * RAD ONC ARIA SESSION SUMMARY(Performed 10/19/2023) * RAD ONC ARIA SESSION SUMMARY(Performed 10/18/2023) * PET CT WHOLE BODY(Performed 10/06/2023) Performed for Postoperative hypothyroidism, Thyroid cancer (HCC), Other hypoparathyroidism * GLUCOSE SCREEN - POCT (IP) [facility](Performed 10/06/2023) * MRI CERVICAL SPINE WWO CONT(Performed 10/01/2023) Performed for Cancer, metastatic to bone (HCC), Cervical spine tumor * THYROGLOBULIN BY ANTONIETA RFLXED(Performed 09/09/2023) Performed for Hypocalcemia, Thyroid cancer (CMS/HCC) * T4 FREE(Performed 09/09/2023) Performed for Hypocalcemia, Thyroid cancer (CMS/HCC) * TSH REFLEX FREE T4(Performed 09/09/2023) Performed for Hypocalcemia, Thyroid cancer (CMS/HCC) * THYROGLOBULIN REFLEX PROFILE(Performed 09/09/2023) Performed for Hypocalcemia, Thyroid cancer (CMS/HCC) * RENAL FUNCTION PANEL(Performed 09/09/2023) Performed for Hypocalcemia, Thyroid cancer (CMS/HCC) * WA LARYNGOSCOPY,FLEX FIBER,DIAGNOSTIC(Performed 08/06/2023) Performed for Hoarseness * THYROGLOBULIN BY ANTONIETA RFLXED(Performed 06/10/2023) Performed for Postoperative hypothyroidism, Thyroid cancer (HCC), Hypocalcemia, Other hypoparathyroidism * THYROGLOBULIN REFLEX PROFILE(Performed 06/10/2023) Performed for Postoperative hypothyroidism, Thyroid cancer (HCC), Hypocalcemia, Other hypoparathyroidism * TSH(Performed 06/10/2023) Performed for Postoperative hypothyroidism, Thyroid cancer (HCC), Hypocalcemia, Other hypoparathyroidism * MRI CERVICAL SPINE WWO CONT(Performed 03/25/2023) Performed for Cervical spine tumor, Cancer, metastatic to bone (HCC), Thyroid cancer (HCC) * CREATININE - POCT INTERFACED(Performed 03/25/2023) * WA LARYNGOSCOPY,FLEX FIBER,DIAGNOSTIC(Performed 01/29/2023) Performed for S/P cervical spinal fusion * THYROGLOBULIN BY ANTONIETA RFLXED(Performed 01/20/2023) Performed for Postoperative hypothyroidism, Thyroid cancer (HCC), Hypocalcemia, Other hypoparathyroidism (CMS/HCC) * T4 FREE(Performed 01/20/2023) Performed for Postoperative hypothyroidism, Thyroid cancer (HCC), Hypocalcemia, Other hypoparathyroidism (CMS/HCC) * TSH REFLEX FREE T4(Performed 01/20/2023) Performed for Postoperative hypothyroidism, Thyroid cancer (HCC), Hypocalcemia, Other hypoparathyroidism (CMS/HCC) * THYROGLOBULIN REFLEX PROFILE(Performed 01/20/2023) Performed for Postoperative hypothyroidism, Thyroid cancer (HCC), Hypocalcemia, Other hypoparathyroidism (CMS/HCC) * PAIN MANAGEMENT PROCEDURE TIME(Performed 01/14/2023) Performed for Arthritis, hip * MRI CERVICAL SPINE WWO CONT(Performed 12/24/2022) Performed for Neoplasm of uncertain behavior of skin, Thyroid cancer (HCC) * CREATININE - POCT INTERFACED(Performed 12/24/2022) * PAIN MANAGEMENT PROCEDURE TIME(Performed 12/10/2022) Performed for Arthritis of hip * NICOTINE + METABOLITES BLOOD(Performed 11/02/2022) Performed for Pre-op testing * TSH REFLEX FREE T4(Performed 11/02/2022) Performed for Pre-op testing * THYROGLOBULIN BY ANTONIETA RFLXED(Performed 11/02/2022) Performed for Postoperative hypothyroidism, Thyroid cancer (HCC), Hypocalcemia, Other hypoparathyroidism (CMS/HCC) * THYROGLOBULIN REFLEX PROFILE(Performed 11/02/2022) Performed for Postoperative hypothyroidism, Thyroid cancer (HCC), Hypocalcemia, Other hypoparathyroidism (CMS/HCC) * WA US SOFT TISS HEAD&NCK R-T IMG(Performed 11/02/2022) Performed for Postoperative hypothyroidism, Thyroid cancer (HCC), Hypocalcemia, Other hypoparathyroidism (CMS/HCC) * CARDIAC EKG ORDER(Performed 10/09/2022) * PHOSPHORUS BLOOD(Performed 10/07/2022) Performed for Cancer, metastatic to bone (HCC) * MAGNESIUM BLOOD(Performed 10/07/2022) Performed for Cancer, metastatic to bone (HCC) * CBC W AUTO DIFFERENTIAL(Performed 10/07/2022) Performed for Cancer, metastatic to bone (HCC) * BASIC METABOLIC PANEL (CALCIUM TOTAL)(Performed 10/07/2022) Performed for Cancer, metastatic to bone (HCC) * PREPARE RBC LEUKOREDUCED UNIT(Performed 10/06/2022) Performed for Thyroid cancer (HCC) * PHOSPHORUS BLOOD(Performed 10/05/2022) Performed for Cancer, metastatic to bone (HCC) * MAGNESIUM BLOOD(Performed 10/05/2022) Performed for Cancer, metastatic to bone (HCC) * CBC W AUTO DIFFERENTIAL(Performed 10/05/2022) Performed for Cancer, metastatic to bone (HCC) * BASIC METABOLIC PANEL (CALCIUM TOTAL)(Performed 10/05/2022) Performed for Cancer, metastatic to bone (HCC) * PHOSPHORUS BLOOD(Performed 10/05/2022) Performed for Cancer, metastatic to bone (HCC) * MAGNESIUM BLOOD(Performed 10/05/2022) Performed for Cancer, metastatic to bone (HCC) * CBC W AUTO DIFFERENTIAL(Performed 10/05/2022) Performed for Cancer, metastatic to bone (HCC) * BASIC METABOLIC PANEL (CALCIUM TOTAL)(Performed 10/05/2022) Performed for Cancer, metastatic to bone (HCC) * XR CERVICAL SPINE 2 OR 3VW(Performed 10/04/2022) Performed for Cancer, metastatic to bone (HCC) * XR THORACIC SPINE 3VW(Performed 10/04/2022) Performed for Cervical spine tumor * PHOSPHORUS BLOOD(Performed 10/04/2022) Performed for Cancer, metastatic to bone (HCC) * MAGNESIUM BLOOD(Performed 10/04/2022) Performed for Cancer, metastatic to bone (HCC) * CBC W AUTO DIFFERENTIAL(Performed 10/04/2022) Performed for Cancer, metastatic to bone (HCC) * BASIC METABOLIC PANEL (CALCIUM TOTAL)(Performed 10/04/2022) Performed for Cancer, metastatic to bone (HCC) * PHOSPHORUS BLOOD(Performed 10/02/2022) Performed for Cancer, metastatic to bone (HCC) * MAGNESIUM BLOOD(Performed 10/02/2022) Performed for Cancer, metastatic to bone (HCC) * CBC W AUTO DIFFERENTIAL(Performed 10/02/2022) Performed for Cancer, metastatic to bone (HCC) * BASIC METABOLIC PANEL (CALCIUM TOTAL)(Performed 10/02/2022) Performed for Cancer, metastatic to bone (HCC) * PHOSPHORUS BLOOD(Performed 10/02/2022) Performed for Cancer, metastatic to bone (HCC) * MAGNESIUM BLOOD(Performed 10/02/2022) Performed for Cancer, metastatic to bone (HCC) * BASIC METABOLIC PANEL (CALCIUM TOTAL)(Performed 10/02/2022) Performed for Cancer, metastatic to bone (HCC) * PT-INR [facility](Performed 10/02/2022) * CBC W AUTO DIFFERENTIAL(Performed 10/02/2022) * FL RONNY SURGERY(Performed 10/02/2022) Performed for Cancer, metastatic to bone (HCC) * FL OARM SURGERY(Performed 10/02/2022) Performed for Cancer, metastatic to bone (HCC) * PULSE OXIMETRY, CONTINUOUS(Performed 10/02/2022) * PATHOLOGY TISSUE(Performed 10/02/2022) Performed for Cervical spine tumor * ENDOTRACHEAL TUBE NOTE(Performed 10/02/2022) * ARTERIAL LINE NOTE(Performed 10/02/2022) * FUSION POSTERIOR CERVICAL (PCF)(Performed 10/02/2022) Performed for Cervical spine tumor * TYPE + SCREEN PANEL(Performed 10/02/2022) Performed for Preop examination * CT CUSTOM SHOULDER LT REPLCMNT(Performed 09/25/2022) Performed for Rotator cuff arthropathy of left shoulder, Pre-op testing * RAD ONC ARIA SESSION SUMMARY(Performed 09/21/2022) * RAD ONC ARIA SESSION SUMMARY(Performed 09/18/2022) * TYPE + SCREEN PANEL(Performed 09/14/2022) Performed for Preop examination * PTT [facility](Performed 09/14/2022) Performed for Pre-op testing * PT-INR [facility](Performed 09/14/2022) Performed for Pre-op testing * CBC W AUTO DIFFERENTIAL(Performed 09/14/2022) Performed for Pre-op testing * BASIC METABOLIC PANEL (CALCIUM TOTAL)(Performed 09/14/2022) Performed for Pre-op testing * XR CHEST 2VW(Performed 09/14/2022) Performed for Pre-op testing * EKG 12-LEAD(Performed 09/14/2022) Performed for Pre-op testing * MRI CERVICAL SPINE WWO CONT(Performed 08/21/2022) Performed for Thyroid cancer (HCC), Postoperative hypothyroidism * THYROGLOBULIN BY ANTONIETA RFLXED(Performed 08/21/2022) Performed for Postoperative hypothyroidism, Thyroid cancer (HCC) * THYROGLOBULIN REFLEX PROFILE(Performed 08/21/2022) Performed for Postoperative hypothyroidism, Thyroid cancer (HCC) * WA LARYNGOSCOPY,FLEX FIBER,DIAGNOSTIC(Performed 08/21/2022) Performed for Hoarseness * NM TUMOR LOCAL SPECT CT(Performed 08/19/2022) Performed for Postoperative hypothyroidism, Thyroid cancer (HCC), Hypocalcemia, Other hypoparathyroidism (CMS/HCC) * NM THYROID WHOLE BODY SCAN(Performed 08/19/2022) Performed for Postoperative hypothyroidism, Thyroid cancer (HCC), Hypocalcemia, Other hypoparathyroidism (CMS/HCC) * URINE DRUG SCREEN IMMUNOASSAY(Performed 08/14/2022) Performed for Left shoulder pain, unspecified chronicity * THYROGLOBULIN BY ANTONIETA RFLXED(Performed 08/14/2022) Performed for Postoperative hypothyroidism, Thyroid cancer (HCC), Hypocalcemia, Other hypoparathyroidism (CMS/HCC) * T4 FREE(Performed 08/14/2022) Performed for Postoperative hypothyroidism, Thyroid cancer (HCC) * TSH REFLEX FREE T4(Performed 08/14/2022) Performed for Postoperative hypothyroidism, Thyroid cancer (HCC) * HIV-1 HIV-2 ANTIBODY + HIV P24 AG PANEL(Performed 08/14/2022) Performed for Preventative health care * THYROGLOBULIN REFLEX PROFILE(Performed 08/14/2022) Performed for Postoperative hypothyroidism, Thyroid cancer (HCC), Hypocalcemia, Other hypoparathyroidism (CMS/HCC) * VITAMIN D 25-HYDROXY(Performed 08/14/2022) Performed for Postoperative hypothyroidism, Thyroid cancer (HCC), Hypocalcemia, Other hypoparathyroidism (CMS/HCC) * RENAL FUNCTION PANEL(Performed 08/14/2022) Performed for Postoperative hypothyroidism, Thyroid cancer (HCC), Hypocalcemia, Other hypoparathyroidism (CMS/HCC) * THYROGLOBULIN BY ANTONIETA RFLXED(Performed 08/07/2022) Performed for Postoperative hypothyroidism, Thyroid cancer (HCC), Hypocalcemia, Other hypoparathyroidism (CMS/HCC) * THYROGLOBULIN REFLEX PROFILE(Performed 08/07/2022) Performed for Postoperative hypothyroidism, Thyroid cancer (HCC), Hypocalcemia, Other hypoparathyroidism (CMS/HCC) * T4 FREE(Performed 08/07/2022) Performed for Thyroid cancer (HCC) * TSH REFLEX FREE T4(Performed 08/07/2022) Performed for Thyroid cancer (HCC) * THYROGLOBULIN BY ANTONIETA RFLXED(Performed 07/02/2022) Performed for Postoperative hypothyroidism, Thyroid cancer (HCC), Hypocalcemia, Other hypoparathyroidism (CMS/HCC) * T4 FREE(Performed 07/02/2022) Performed for Postoperative hypothyroidism, Thyroid cancer (HCC), Hypocalcemia, Other hypoparathyroidism (CMS/HCC) * TSH REFLEX FREE T4(Performed 07/02/2022) Performed for Postoperative hypothyroidism, Thyroid cancer (HCC), Hypocalcemia, Other hypoparathyroidism (CMS/HCC) * THYROGLOBULIN REFLEX PROFILE(Performed 07/02/2022) Performed for Postoperative hypothyroidism, Thyroid cancer (HCC), Hypocalcemia, Other hypoparathyroidism (CMS/HCC) * WA US SOFT TISS HEAD&NCK R-T IMG(Performed 07/02/2022) Performed for Postoperative hypothyroidism, Thyroid cancer (HCC), Hypocalcemia, Other hypoparathyroidism (CMS/HCC) * THYROGLOBULIN BY ANTONIETA RFLXED(Performed 05/01/2022) Performed for Postoperative hypothyroidism, Thyroid cancer (HCC), Hypocalcemia, Other hypoparathyroidism (CMS/HCC) * TSH REFLEX FREE T4(Performed 05/01/2022) Performed for Postoperative hypothyroidism, Thyroid cancer (HCC), Hypocalcemia, Other hypoparathyroidism (CMS/HCC) * THYROGLOBULIN REFLEX PROFILE(Performed 05/01/2022) Performed for Postoperative hypothyroidism, Thyroid cancer (HCC), Hypocalcemia, Other hypoparathyroidism (CMS/HCC) * VITAMIN D 25-HYDROXY(Performed 05/01/2022) Performed for Postoperative hypothyroidism, Thyroid cancer (HCC), Hypocalcemia, Other hypoparathyroidism (CMS/HCC) * RENAL FUNCTION PANEL(Performed 05/01/2022) Performed for Postoperative hypothyroidism, Thyroid cancer (HCC), Hypocalcemia, Other hypoparathyroidism (CMS/HCC) * XR CERVICAL SPINE 2 OR 3VW(Performed 04/10/2022) Performed for Neck pain * XR SHOULDER LEFT 2VW OR MORE(Performed 04/10/2022) Performed for Left shoulder pain, unspecified chronicity * MRI SHOULDER LEFT WO CONTRAST(Performed 03/29/2022) Performed for Nontraumatic tear of left rotator cuff, unspecified tear extent * THYROGLOBULIN BY ANTONIETA RFLXED(Performed 03/19/2022) Performed for Postoperative hypothyroidism, Thyroid cancer (HCC), Hypocalcemia, Other hypoparathyroidism * T4 FREE(Performed 03/19/2022) Performed for Thyroid cancer (HCC), Hypocalcemia, Other hypoparathyroidism, Postoperative hypothyroidism * TSH REFLEX FREE T4(Performed 03/19/2022) Performed for Thyroid cancer (HCC), Hypocalcemia, Other hypoparathyroidism, Postoperative hypothyroidism * RENAL FUNCTION PANEL(Performed 03/19/2022) Performed for Postoperative hypothyroidism, Thyroid cancer (HCC), Hypocalcemia, Other hypoparathyroidism * THYROGLOBULIN REFLEX PROFILE(Performed 03/19/2022) Performed for Postoperative hypothyroidism, Thyroid cancer (HCC), Hypocalcemia, Other hypoparathyroidism * WA DRAIN/INJECT LARGE JOINT/BURSA(Performed 02/27/2022) Performed for Nontraumatic tear of left rotator cuff, unspecified tear extent * XR SHOULDER LEFT 2VW OR MORE(Performed 02/27/2022) Performed for Left shoulder pain, unspecified chronicity * PATHOLOGY TISSUE(Performed 02/05/2022) Performed for Thyroid cancer (HCC) * DISSECTION NECK(Performed 02/05/2022) Performed for Thyroid cancer (HCC) * ENDOTRACHEAL TUBE NOTE(Performed 02/05/2022) * WA LARYNGOSCOPY,FLEX FIBER,DIAGNOSTIC(Performed 01/28/2022) Performed for Thyroid cancer (HCC) * CT NECK SOFT TISSUE W CONT(Performed 01/28/2022) Performed for Thyroid cancer (HCC) * CREATININE - POCT INTERFACED(Performed 01/28/2022) * PET CT WHOLE BODY(Performed 12/25/2021) Performed for Thyroid cancer (HCC), Postoperative hypothyroidism * GLUCOSE SCREEN - POCT (IP) [facility](Performed 12/25/2021) * THYROGLOBULIN BY ANTONIETA RFLXED(Performed 12/08/2021) Performed for Postoperative hypothyroidism, Thyroid cancer (HCC), Hypocalcemia, Other hypoparathyroidism * T4 FREE(Performed 12/08/2021) Performed for Postoperative hypothyroidism * TSH REFLEX FREE T4(Performed 12/08/2021) Performed for Postoperative hypothyroidism * RENAL FUNCTION PANEL(Performed 12/08/2021) Performed for Postoperative hypothyroidism, Thyroid cancer (HCC), Hypocalcemia, Other hypoparathyroidism * THYROGLOBULIN REFLEX PROFILE(Performed 12/08/2021) Performed for Postoperative hypothyroidism, Thyroid cancer (HCC), Hypocalcemia, Other hypoparathyroidism * URINALYSIS - POINT OF CARE (AMB) [facility](Performed 10/29/2021) Performed for Dysuria * THYROGLOBULIN BY ANTONIETA RFLXED(Performed 10/24/2021) Performed for Postoperative hypothyroidism, Thyroid cancer (HCC), Hypocalcemia, Other hypoparathyroidism * T4 FREE(Performed 10/24/2021) Performed for Postoperative hypothyroidism, Thyroid cancer (HCC), Hypocalcemia, Other hypoparathyroidism * TSH REFLEX FREE T4(Performed 10/24/2021) Performed for Postoperative hypothyroidism, Thyroid cancer (HCC), Hypocalcemia, Other hypoparathyroidism * VITAMIN D 25-HYDROXY(Performed 10/24/2021) Performed for Postoperative hypothyroidism, Thyroid cancer (HCC), Hypocalcemia, Other hypoparathyroidism * RENAL FUNCTION PANEL(Performed 10/24/2021) Performed for Postoperative hypothyroidism, Thyroid cancer (HCC), Hypocalcemia, Other hypoparathyroidism * THYROGLOBULIN REFLEX PROFILE(Performed 10/24/2021) Performed for Postoperative hypothyroidism, Thyroid cancer (HCC), Hypocalcemia, Other hypoparathyroidism * T4 FREE(Performed 10/08/2021) Performed for Thyroid cancer (HCC), Hypocalcemia, Other hypoparathyroidism, Postoperative hypothyroidism * TSH REFLEX FREE T4(Performed 10/08/2021) Performed for Thyroid cancer (HCC), Hypocalcemia, Other hypoparathyroidism, Postoperative hypothyroidism * VITAMIN D 25-HYDROXY(Performed 10/08/2021) Performed for Postoperative hypothyroidism, Thyroid cancer (HCC), Hypocalcemia, Other hypoparathyroidism * RENAL FUNCTION PANEL(Performed 10/08/2021) Performed for Postoperative hypothyroidism, Thyroid cancer (HCC), Hypocalcemia, Other hypoparathyroidism * WA US SOFT TISS HEAD&NCK R-T IMG(Performed 10/08/2021) Performed for Postoperative hypothyroidism, Thyroid cancer (HCC), Hypocalcemia, Other hypoparathyroidism * NM THYROID WHOLE BODY SCAN(Performed 03/24/2021) Performed for Thyroid cancer (HCC), Postoperative hypothyroidism * THYROGLOBULIN BY ANTONIETA RFLXED(Performed 03/21/2021) Performed for Postoperative hypothyroidism, Thyroid cancer (HCC), Hypocalcemia * PTH INTACT W/O CALCIUM(Performed 03/21/2021) Performed for Postoperative hypothyroidism, Thyroid cancer (HCC), Hypocalcemia, Other hypoparathyroidism * THYROGLOBULIN REFLEX PROFILE(Performed 03/21/2021) Performed for Postoperative hypothyroidism, Thyroid cancer (HCC), Hypocalcemia * VITAMIN D 25-HYDROXY(Performed 03/21/2021) Performed for Postoperative hypothyroidism, Thyroid cancer (HCC), Hypocalcemia * PTH INTACT W/O CALCIUM(Performed 03/21/2021) Performed for Postoperative hypothyroidism, Thyroid cancer (HCC), Hypocalcemia * RENAL FUNCTION PANEL(Performed 03/21/2021) Performed for Postoperative hypothyroidism, Thyroid cancer (HCC), Hypocalcemia * NM THYROID THERAPY(Performed 03/19/2021) Performed for Thyroid cancer (HCC), Postoperative hypothyroidism * THYROGLOBULIN BY ANTONIETA RFLXED(Performed 03/19/2021) Performed for Postoperative hypothyroidism, Thyroid cancer (HCC), Hypocalcemia * T4 FREE(Performed 03/19/2021) Performed for Postoperative hypothyroidism, Thyroid cancer (HCC), Hypocalcemia * PTH INTACT W/O CALCIUM(Performed 03/19/2021) Performed for Postoperative hypothyroidism, Thyroid cancer (HCC), Hypocalcemia * THYROGLOBULIN REFLEX PROFILE(Performed 03/19/2021) Performed for Postoperative hypothyroidism, Thyroid cancer (HCC), Hypocalcemia * VITAMIN D 25-HYDROXY(Performed 03/19/2021) Performed for Postoperative hypothyroidism, Thyroid cancer (HCC), Hypocalcemia * RENAL FUNCTION PANEL(Performed 03/19/2021) Performed for Postoperative hypothyroidism, Thyroid cancer (HCC), Hypocalcemia * TSH REFLEX FREE T4(Performed 03/19/2021) Performed for Postoperative hypothyroidism, Thyroid cancer (HCC), Hypocalcemia * THYROGLOBULIN BY ANTONIETA RFLXED(Performed 03/17/2021) Performed for Postoperative hypothyroidism, Thyroid cancer (HCC), Hypocalcemia * T4 FREE(Performed 03/17/2021) Performed for Postoperative hypothyroidism * THYROGLOBULIN REFLEX PROFILE(Performed 03/17/2021) Performed for Postoperative hypothyroidism, Thyroid cancer (HCC), Hypocalcemia * VITAMIN D 25-HYDROXY(Performed 03/17/2021) Performed for Postoperative hypothyroidism, Thyroid cancer (HCC), Hypocalcemia * PTH INTACT W/O CALCIUM(Performed 03/17/2021) Performed for Postoperative hypothyroidism, Thyroid cancer (HCC), Hypocalcemia * RENAL FUNCTION PANEL(Performed 03/17/2021) Performed for Postoperative hypothyroidism, Thyroid cancer (HCC), Hypocalcemia * TSH REFLEX FREE T4(Performed 03/17/2021) Performed for Postoperative hypothyroidism * THYROGLOBULIN BY ANTONIETA RFLXED(Performed 02/14/2021) Performed for Postoperative hypothyroidism, Thyroid cancer (HCC), Hypocalcemia, Other hypoparathyroidism * T4 FREE(Performed 02/14/2021) Performed for Postoperative hypothyroidism, Thyroid cancer (HCC), Hypocalcemia, Other hypoparathyroidism * PTH INTACT W/O CALCIUM(Performed 02/14/2021) Performed for Postoperative hypothyroidism, Thyroid cancer (HCC), Hypocalcemia, Other hypoparathyroidism * TSH REFLEX FREE T4(Performed 02/14/2021) Performed for Postoperative hypothyroidism, Thyroid cancer (HCC), Hypocalcemia, Other hypoparathyroidism * RENAL FUNCTION PANEL(Performed 02/14/2021) Performed for Postoperative hypothyroidism, Thyroid cancer (HCC), Hypocalcemia, Other hypoparathyroidism * THYROGLOBULIN REFLEX PROFILE(Performed 02/14/2021) Performed for Postoperative hypothyroidism, Thyroid cancer (HCC), Hypocalcemia, Other hypoparathyroidism * XR KNEE LEFT 4VW OR MORE(Performed 02/14/2021) Performed for Knee pain, unspecified chronicity, unspecified laterality * WA TANGNTL BX SKIN SINGLE LES(Performed 12/09/2020) Performed for Neoplasm of uncertain behavior of skin * DERMATOPATHOLOGY(Performed 12/09/2020) Performed for Neoplasm of uncertain behavior of skin * XR HIP LEFT 2VW OR MORE(Performed 11/19/2020) Performed for Primary osteoarthritis of left hip * XR PELVIS 1 OR 2VW(Performed 11/19/2020) Performed for Primary osteoarthritis of left hip * URINE DRUG SCREEN IMMUNOASSAY(Performed 11/11/2020) Performed for [facility] current use of 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 * THYROGLOBULIN BY ANTONIETA RFLXED(Performed 11/11/2020) Performed for Postoperative hypothyroidism, Thyroid cancer (HCC), Hypocalcemia * THYROGLOBULIN REFLEX PROFILE(Performed 11/11/2020) Performed for Postoperative hypothyroidism, Thyroid cancer (HCC), Hypocalcemia * VITAMIN D 25-HYDROXY(Performed 11/11/2020) Performed for Postoperative hypothyroidism, Thyroid cancer (HCC), Hypocalcemia * PTH INTACT W/O CALCIUM(Performed 11/11/2020) Performed for Postoperative hypothyroidism, Thyroid cancer (HCC), Hypocalcemia * RENAL FUNCTION PANEL(Performed 11/11/2020) Performed for Postoperative hypothyroidism, Thyroid cancer (HCC), Hypocalcemia * TSH(Performed 11/11/2020) Performed for Postoperative hypothyroidism, Thyroid cancer (HCC), Hypocalcemia * SCAN ONLY HIS OPIOID MED AGREEMENT(Performed 11/04/2020) * T4 FREE(Performed 09/11/2020) Performed for High cholesterol * TSH(Performed 09/11/2020) Performed for High cholesterol * RENAL FUNCTION PANEL(Performed 09/11/2020) Performed for Tracheal mass, Lymphadenopathy of head and neck region * CALCIUM IONIZED WHOLE BLOOD(Performed 08/29/2020) * PHOSPHORUS BLOOD(Performed 08/29/2020) * MAGNESIUM BLOOD(Performed 08/29/2020) * CBC W/O DIFFERENTIAL(Performed 08/29/2020) * ALBUMIN BLOOD(Performed 08/29/2020) * BASIC METABOLIC PANEL (CALCIUM TOTAL)(Performed 08/29/2020) * PTH INTACT W/O CALCIUM(Performed 08/29/2020) * CALCIUM IONIZED WHOLE BLOOD(Performed 08/28/2020) * CALCIUM IONIZED WHOLE BLOOD(Performed 08/28/2020) * CALCIUM IONIZED WHOLE BLOOD(Performed 08/28/2020) * PHOSPHORUS BLOOD(Performed 08/28/2020) * MAGNESIUM BLOOD(Performed 08/28/2020) * CBC W/O DIFFERENTIAL(Performed 08/28/2020) * ALBUMIN BLOOD(Performed 08/28/2020) * BASIC METABOLIC PANEL (CALCIUM TOTAL)(Performed 08/28/2020) * PTH INTACT W/O CALCIUM(Performed 08/28/2020) * CALCIUM IONIZED WHOLE BLOOD(Performed 08/28/2020) * CALCIUM IONIZED WHOLE BLOOD(Performed 08/27/2020) * GLUCOSE - POINT OF CARE(Performed 08/27/2020) * CALCIUM IONIZED WHOLE BLOOD(Performed 08/27/2020) * PHOSPHORUS BLOOD(Performed 08/27/2020) * MAGNESIUM BLOOD(Performed 08/27/2020) * CBC W/O DIFFERENTIAL(Performed 08/27/2020) * ALBUMIN BLOOD(Performed 08/27/2020) * BASIC METABOLIC PANEL (CALCIUM TOTAL)(Performed 08/27/2020) * PTH INTACT W/O CALCIUM(Performed 08/27/2020) * CALCIUM IONIZED WHOLE BLOOD(Performed 08/27/2020) * CALCIUM IONIZED WHOLE BLOOD(Performed 08/26/2020) * CALCIUM IONIZED WHOLE BLOOD(Performed 08/26/2020) * CALCIUM IONIZED WHOLE BLOOD(Performed 08/26/2020) * PHOSPHORUS BLOOD(Performed 08/26/2020) * MAGNESIUM BLOOD(Performed 08/26/2020) * CBC W/O DIFFERENTIAL(Performed 08/26/2020) * ALBUMIN BLOOD(Performed 08/26/2020) * BASIC METABOLIC PANEL (CALCIUM TOTAL)(Performed 08/26/2020) * PTH INTACT W/O CALCIUM(Performed 08/26/2020) * CALCIUM IONIZED WHOLE BLOOD(Performed 08/26/2020) * CALCIUM IONIZED WHOLE BLOOD(Performed 08/25/2020) * CALCIUM URINE RANDOM(Performed 08/25/2020) * CALCIUM IONIZED WHOLE BLOOD(Performed 08/25/2020) * CALCIUM IONIZED WHOLE BLOOD(Performed 08/25/2020) * PHOSPHORUS BLOOD(Performed 08/25/2020) * MAGNESIUM BLOOD(Performed 08/25/2020) * CBC W/O DIFFERENTIAL(Performed 08/25/2020) * ALBUMIN BLOOD(Performed 08/25/2020) * BASIC METABOLIC PANEL (CALCIUM TOTAL)(Performed 08/25/2020) * PTH INTACT W/O CALCIUM(Performed 08/25/2020) * CALCIUM IONIZED WHOLE BLOOD(Performed 08/25/2020) * CALCIUM IONIZED WHOLE BLOOD(Performed 08/24/2020) * CALCIUM IONIZED WHOLE BLOOD(Performed 08/24/2020) * CALCIUM IONIZED WHOLE BLOOD(Performed 08/24/2020) * CALCIUM URINE RANDOM(Performed 08/24/2020) * ALBUMIN BLOOD(Performed 08/24/2020) * PTH INTACT W/O CALCIUM(Performed 08/24/2020) * PHOSPHORUS BLOOD(Performed 08/24/2020) * CBC W/O DIFFERENTIAL(Performed 08/24/2020) * BASIC METABOLIC PANEL (CALCIUM TOTAL)(Performed 08/24/2020) * CALCIUM IONIZED WHOLE BLOOD(Performed 08/24/2020) * CALCIUM IONIZED WHOLE BLOOD(Performed 08/23/2020) * OT EVAL AND TREAT(Performed 08/23/2020) * MAGNESIUM BLOOD(Performed 08/23/2020) * CALCIUM IONIZED WHOLE BLOOD(Performed 08/23/2020) * CALCIUM URINE RANDOM(Performed 08/23/2020) * BASIC METABOLIC PANEL (CALCIUM TOTAL)(Performed 08/23/2020) * CALCIUM IONIZED WHOLE BLOOD(Performed 08/23/2020) * ALBUMIN BLOOD(Performed 08/23/2020) * PTH INTACT W/O CALCIUM(Performed 08/23/2020) * PREPARE RBC LEUKOREDUCED UNIT(Performed 08/23/2020) * PHOSPHORUS BLOOD(Performed 08/22/2020) * CBC W/O DIFFERENTIAL(Performed 08/22/2020) * BASIC METABOLIC PANEL (CALCIUM TOTAL)(Performed 08/22/2020) * CALCIUM IONIZED WHOLE BLOOD(Performed 08/22/2020) * CALCIUM IONIZED WHOLE BLOOD(Performed 08/22/2020) * RENAL FUNCTION PANEL(Performed 08/22/2020) * MAGNESIUM BLOOD(Performed 08/22/2020) * CALCIUM IONIZED WHOLE BLOOD(Performed 08/22/2020) * CALCIUM IONIZED WHOLE BLOOD(Performed 08/22/2020) * PHOSPHORUS BLOOD(Performed 08/21/2020) * MAGNESIUM BLOOD(Performed 08/21/2020) * CBC W/O DIFFERENTIAL(Performed 08/21/2020) * BASIC METABOLIC PANEL (CALCIUM TOTAL)(Performed 08/21/2020) * CALCIUM IONIZED WHOLE BLOOD(Performed 08/21/2020) * CALCIUM IONIZED WHOLE BLOOD(Performed 08/21/2020) * MAGNESIUM BLOOD(Performed 08/21/2020) * CALCIUM IONIZED WHOLE BLOOD(Performed 08/21/2020) * THYROGLOBULIN BY ANTONIETA RFLXED(Performed 08/21/2020) * CALCIUM IONIZED WHOLE BLOOD(Performed 08/21/2020) * THYROGLOBULIN REFLEX PROFILE(Performed 08/21/2020) * VITAMIN D 25-HYDROXY(Performed 08/21/2020) * PHOSPHORUS BLOOD(Performed 08/20/2020) * MAGNESIUM BLOOD(Performed 08/20/2020) * CBC W/O DIFFERENTIAL(Performed 08/20/2020) * BASIC METABOLIC PANEL (CALCIUM TOTAL)(Performed 08/20/2020) * CALCIUM IONIZED WHOLE BLOOD(Performed 08/20/2020) * CALCIUM IONIZED WHOLE BLOOD(Performed 08/20/2020) * CALCIUM IONIZED WHOLE BLOOD(Performed 08/20/2020) * CALCIUM IONIZED WHOLE BLOOD(Performed 08/20/2020) * PTH INTACT W/O CALCIUM(Performed 08/20/2020) * PHOSPHORUS BLOOD(Performed 08/19/2020) * MAGNESIUM BLOOD(Performed 08/19/2020) * CBC W/O DIFFERENTIAL(Performed 08/19/2020) * BASIC METABOLIC PANEL (CALCIUM TOTAL)(Performed 08/19/2020) * CALCIUM IONIZED WHOLE BLOOD(Performed 08/19/2020) * CALCIUM IONIZED WHOLE BLOOD(Performed 08/19/2020) * XR ABDOMEN KUB PORTABLE(Performed 08/19/2020) Performed for Tracheal mass * ENDOTRACHEAL TUBE NOTE(Performed 08/19/2020) * PATHOLOGY TISSUE(Performed 08/19/2020) Performed for Tracheal mass, Hoarseness, Paralysis of right vocal cord * ENDOTRACHEAL TUBE NOTE(Performed 08/19/2020) * EXCISION/RESECTION/REPAIR TRACHEA(Performed 08/19/2020) Performed for Tracheal mass, Hoarseness, Paralysis of right vocal cord * DISSECTION NECK(Performed 08/19/2020) Performed for Tracheal mass, Hoarseness, Paralysis of right vocal cord * LARYNGOSCOPY WITH MICROSCOPE(Performed 08/19/2020) Performed for Tracheal mass, Hoarseness, Paralysis of right vocal cord * TYPE + SCREEN PANEL(Performed 08/19/2020) * MRI BRAIN WO CONTRAST(Performed 08/17/2020) Performed for Neck mass * MRI NECK SOFT TISSUE WWO CONT(Performed 08/17/2020) Performed for Neck mass * SARS-COV-2 (COVID-19) IN HOUSE(Performed 08/15/2020) Performed for Hoarseness, Tracheal mass, Complete paralysis of right vocal cord, Lymphadenopathy ofhead and neck region * FL SWALLOWING FUNCTION STUDY(Performed 08/07/2020) Performed for Other dysphagia, Dysphagia, unspecified type, Complete paralysis of right vocal cord * CBC W/O DIFFERENTIAL(Performed 08/01/2020) Performed for Pre-op evaluation * BASIC METABOLIC PANEL (CALCIUM TOTAL)(Performed 08/01/2020) Performed for Pre-op evaluation * FINE NEEDLE ASPIRATION - THYROID (STL)(Performed 08/01/2020) Performed for Thyroid nodule * US THYROID FNA(Performed 08/01/2020) Performed for Thyroid nodule * WA LARYNGOSCOPY,FLEX FIBER,DIAGNOSTIC(Performed 07/24/2020) Performed for Hoarseness * IMAGING/RADIOLOGY/XRAY RESULTS ORDER(Performed 07/24/2020) * CT NECK SOFT TISSUE W CONT(Performed 07/24/2020) Performed for Neck mass * CREATININE - POCT INTERFACED(Performed 07/24/2020) * MRI FOOT RIGHT WO CONTRAST(Performed 07/02/2020) Performed for Right foot pain * CT GUIDED NEEDLE PLACEMENT(Performed 04/18/2020) Performed for Thyroid nodule * FINE NEEDLE ASPIRATION - THYROID (STL)(Performed 04/18/2020) Performed for Thyroid nodule * XR FOOT RIGHT 3VW OR MORE(Performed 04/02/2020) Performed for Right foot pain * COMPREHENSIVE METABOLIC PANEL(Performed 03/07/2020) Performed for Hyperlipidemia, unspecified hyperlipidemia type * LIPID PROFILE(Performed 03/07/2020) Performed for Hyperlipidemia, unspecified hyperlipidemia type * HEMOGLOBIN A1C(Performed 03/07/2020) Performed for Diabetes mellitus screening * HEPATITIS C AB SCREEN RFLX NAAT QUANT(Performed 03/07/2020) Performed for Encounter for hepatitis C screening test for low risk patient * TSH(Performed 03/07/2020) Performed for Thyroid nodule * CBC W/O DIFFERENTIAL(Performed 03/07/2020) Performed for Well adult exam * US THYROID(Performed 03/07/2020) Performed for Thyroid nodule * XR PELVIS 1 OR 2VW(Performed 02/27/2020) Performed for Arthralgia of hip, unspecified laterality * XR HIP LEFT 2VW OR MORE(Performed 02/27/2020) Performed for Arthralgia of hip, unspecified laterality * PAP IMAGE-GUIDED W HPV(Performed 11/23/2019) Performed for Well woman exam with routine gynecological exam * HPV DETECTION HIGH RISK LEE(Performed 11/23/2019) Performed for Well woman exam with routine gynecological exam Results * NM Bone Scan Whole Body (07/07/2024 1:44 PM SENIOR SOFTWARE QUALITY ENGINEER) Anatomical Region Laterality Modality Abdomen Nuclear Medicine 07/07/2024 10:5 1 AM SENIOR SOFTWARE QUALITY ENGINEER Impressions 07/07/2024 3:49 PM SENIOR SOFTWARE QUALITY ENGINEER IMPRESSION: 1. Intense radiotracer uptake within left pelvis, consistent with severe osteoarthritis seen in the prior PET/CT from 02/25/2024. 2. Moderate radiotracer uptake within lower neck anteriorly which may relate to post treatment changes, follow-up is recommended. > Dictated by Daphne Reis MD (Artificial Plastic Eye Maker) 07/07/2024 10:51 AM ITiesha DO have personally reviewed and interpreted this examination/study. > Interpreting Provider: Tiesha Sy DO on 07/07/2024 3:49 PM Narrative 07/07/2024 3:49 PM SENIOR SOFTWARE QUALITY ENGINEER PROCEDURE: ??NM BONE SCAN WHOLE BODY DATE/TIME OF EXAM: ??07/07/2024 10:45 AM CLINICAL INFORMATION: None relevant/not provided if blank. Indication: C79.51: Cancer, metastatic to bone (HCC) HISTORY: A 63-year-old female with metastatic papillary thyroid carcinoma diagnosed in 2020 status post total thyroidectomy, cervical and thoracic spine metastasis status post radiotherapy. Currently on immunotherapy. TECHNIQUE: The patient was injected with 24.9 mCi of bnrhvzpamy98-s MDP IV in the right antecubital fossa. [...] hip joint. There are multiple sites of rskv-bg-yfgxlygy increased uptake in the bilateral shoulders and spine consistent with degenerative disease. Procedure Note Tiesha Sy DO - 07/07/2024 PROCEDURE: NM BONE SCAN [...] patient was injected with 24.9 mCi of kuywpbniqi45-d MDPIV in the right antecubital fossa. Anterior [...] hip joint. There are multiple sites of ecsi-wg-ftxhlamj increased uptake in the bilateral shoulders and spine consistent with degenerative disease. IMPRESSION: 1. Intense radiotracer uptake within left pelvis, consistent with severe osteoarthritis seen in the prior PET/CT from 02/25/2024. 2. Moderate radiotracer uptake within lower neck anteriorly which may relate to post treatment changes, follow-up is recommended. > Dictated by Daphne Reis MD (Artificial Plastic Eye Maker) 07/07/2024 10:51AM ITiesha DO have personally reviewed and interpreted this examination/study. > Interpreting Provider: Tiesha Sy DO on 07/07/2024 3:49 PM Remi Beckett MD NM ORDERABLES * CT Neck Soft Tissue W Cont (07/07/2024 12:11 PM SENIOR SOFTWARE QUALITY ENGINEER) Only the most recent of3 resultswithin the time period is included. Anatomical Region Laterality Modality Head Computed Tomogra phy 07/09/2024 9:4 7 AM SENIOR SOFTWARE QUALITY ENGINEER Impressions 07/09/2024 10:08 AM SENIOR SOFTWARE QUALITY ENGINEER IMPRESSION: 1. A 9 x 7 x [...] 07/09/2024 10:08 AM Narrative 07/09/2024 10:08 AM SENIOR SOFTWARE QUALITY ENGINEER PROCEDURE: ??CT NECK SOFT TISSUE W CONT, DATE/TIME OF EXAM: ??07/07/2024 12:12 PM, LOCATION ??[facility] INDICATION: C73: Papillary carcinoma of thyroid [...] SOFT TISSUE W CONT, DATE/TIME OF EXAM: 2:12 PM, LOCATION [facility] INDICATION: C73: Papillary carcinoma of thyroid [...] Abdomen Pelvis W Cont (07/07/2024 12:08 PM SENIOR SOFTWARE QUALITY ENGINEER) Anatomical Region Laterality Modality Chest, Abdomen, Pelvis Computed Tomography 07/07/2024 1:01 PM SENIOR SOFTWARE QUALITY ENGINEER Impressions 07/07/2024 4:00 PM SENIOR SOFTWARE QUALITY ENGINEER Impression: 1.Changes of total thyroidectomy. 2.Minimal enhancement around the gallbladder fundus, this can be seen in adenomyomatosis. Right upper quadrant ultrasound may be obtained for further evaluation if clinically indicated. 3.Partially imaged osseous changes in the lower cervical and upper thoracic spine at site of treated metastasis are better evaluated on MRI from 11/23/2023. > Dictated by Donald [facility], [facility] ??(radiology asst). IVaishali MD have personally reviewed and interpreted this examination/study. > Interpreting Provider: Vaishali Herrera MD on 07/07/2024 4:00 PM Narrative 07/07/2024 4:00 PM SENIOR SOFTWARE QUALITY ENGINEER PROCEDURE: ??CT CHEST ABDOMEN PELVIS W CONT, DATE/TIME OF EXAM: ??07/07/2024 12:09 PM, LOCATION ??[facility] INDICATION: C73: Papillary carcinoma of thyroid [...] changes of the left hip joint with vzvq-hp-gwin contact. Partially imaged posterior spinal fusion hardware. Bone changes in the left aspect of partially imaged C7 at the site of treated metastasis. Soft tissues: Normal. Procedure Note Lorena Herrera MD - 07/07/2024 PROCEDURE: CT CHEST ABDOMEN PELVIS W CONT, DATE/TIME OF EXAM: 07/07/2024 12:09 PM, LOCATION [facility] INDICATION: C73: Papillary carcinoma of thyroid [...] osteoarthritic changes ofthe left hip joint with tynk-nj-vcgg contact. Partially imaged posteriorspinal fusion hardware. Bone [...] from 11/23/2023. > Dictated by Donald NATH, [facility] (radiology asst). I, Vaishali Herrera MD have personally reviewed and interpreted this examination/study. > Interpreting Provider: Vaishali Herrera MD on 07/07/2024 4:00 PM Remi Beckett MD CT ORDERABLES * MRI Cervical Spine Wwo Cont (07/06/2024 1:17 PM SENIOR SOFTWARE QUALITY ENGINEER) Only the most recent of7 resultswithin the time period is included. Anatomical Region Laterality Modality Spine Magnetic Resonan ce 07/06/2024 3:40 PM SENIOR SOFTWARE QUALITY ENGINEER Impressions 07/07/2024 6:34 AM SENIOR SOFTWARE QUALITY ENGINEER IMPRESSION: 1. 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 No definite evidence of severe central canal stenosis or intramedullary tumor is seen. IMPRESSION: Normal cervical spine MRI performed without and with IV contrast. > Interpreting Provider: Primitivo Martin MD on 07/07/2024 6:34 AM Narrative 07/07/2024 6:34 AM SENIOR SOFTWARE QUALITY ENGINEER PROCEDURE: ??MRI CERVICAL SPINE WWO CONT DATE/TIME [...] Multilevel laminectomy changes are present. Procedure Note Pirmitivo Martin MD - 07/07/2024 PROCEDURE: MRI CERVICAL [...] * THYROGLOBULIN REFLEX PROFILE (06/15/2024 2:41 PM SENIOR SOFTWARE QUALITY ENGINEER) Only the most recent of23 resultswithin the time period is included. Thyroglobulin Antibody <1.0 0.0 - 0.9 IU/mL 06/16/2024 4:09 PM SENIOR SOFTWARE QUALITY ENGINEER [facility] ([facility]) Comment: Thyroglobulin Antibody measured by [facility] [place] Methodology It should be noted that the presence of thyroglobulin antibodies may not be pathogenic nor diagnostic, especially at very low levels. The assay engine installer has found that four percent of individuals without evidence of thyroid disease or autoimmunity will have positive TgAb levels up to 4 IU/mL. Blood BLOOD SPECIMEN / Unknown Lab Venipuncture / Unknown 06/15/2024 2:41 PM SENIOR SOFTWARE QUALITY ENGINEER 06/15/2024 2:42 PM SENIOR SOFTWARE QUALITY ENGINEER Narrative [facility] ([facility]) - 06/16/2024 4:09 PM SENIOR SOFTWARE QUALITY ENGINEER Performed at: ??01 - [facility] [address] ??[id number] Passenger Representative: Oral Melendez PhD, Phone: ??[phone] Yosi Bustamante MD LAB - CHEMISTRY ORD ERABLES Performing Organization Address City/[facility]/ZIP Co de Phone Number [facility] ([facility]) [address] [place] [address] * (ABNORMAL) THYROGLOBULIN BY ANTONIETA RFLXED (06/15/2024 2:41 PM SENIOR SOFTWARE QUALITY ENGINEER) Only the most recent of23 resultswithin the time period is included. Thyroglobulin by ANTONIETA 100.7(H) 1.5 - 38.5 ng/mL 06/16/2024 4:09 PM SENIOR SOFTWARE QUALITY ENGINEER [facility] ([facility]) Comment: According to the National Academy of [...] is 0.1 ng/mL Thyroglobulin measured by [facility] [place] Immunometric Assay Blood BLOOD SPECIMEN / Unknown Lab Venipuncture / Unknown 06/15/2024 2:41 PM SENIOR SOFTWARE QUALITY ENGINEER 06/15/2024 2:42 PM SENIOR SOFTWARE QUALITY ENGINEER Narrative [facility] ([facility]) - 06/16/2024 4:09 PM SENIOR SOFTWARE QUALITY ENGINEER Performed at: ??01 - [facility] [address] ??[id number] Passenger Representative: Oral Melendez PhD, Phone: ??[phone] Yosi Bustamante MD LAB - CHEMISTRY ORD ERABLES [facility] ([facility]) [address] [place] [address] * VITAMIN D 25-HYDROXY (06/15/2024 2:41 PM SENIOR SOFTWARE QUALITY ENGINEER) Only the most recent of10 resultswithin the time period is included. Vitamin D, 25 Hydroxy 47.3 30.0 - 80.0 ng/mL 06/15/2024 3:38 PM SENIOR SOFTWARE QUALITY ENGINEER [facility] Comment: The recommendations for 25-Hydroxy Vitamin D [...] Lab Venipuncture / Unknown 06/15/2024 2:41 PM SENIOR SOFTWARE QUALITY ENGINEER 06/15/2024 2:47 PM SENIOR SOFTWARE QUALITY ENGINEER Remi Beckett MD LAB - CHEMISTRY ORDERABLES Performing Organization Address [facility]/State/ZIP Co de Phone Number [address] [address], [facility] [phone] * (ABNORMAL) CBC WITH DIFFERENTIAL (06/15/2024 2:41 PM SENIOR SOFTWARE QUALITY ENGINEER) Only the most recent of15 resultswithin the time period is included. Pathologist [facility] WBC 9.8 4.0 - 10.7 x10E9/L 06/15/2024 2:55 PM [facility] RBC Count 5.23(H) 3.90 - 5.20 x10E12/L 06/15/2024 2:55 PM [facility] Hemoglobin 16.0(H) 11.9 - 15.8 g/dL 06/15/2024 2:55 PM [facility] Hematocrit 45.9 34.8 - 46.1 % 06/15/2024 2:55 PM [facility] MCV 87.8 80.0 - 98.0 fL 06/15/2024 2:55 PM [facility] MCH 30.6 26.7 - 33.6 pg 06/15/2024 2:55 PM [facility] MCHC 34.9 31.7 - 36.3 g/dL 06/15/2024 2:55 PM [facility] RDW-CV 13.5 11.3 - 14.8 % 06/15/2024 2:55 PM [facility] Platelet Count 285 150 - 420 x10E9/L 06/15/2024 2:55 PM [facility] MPV 9.5 7.8 - 11.4 fL 06/15/2024 2:55 PM [facility] Neutrophil % 68.5 41.0 - 74.0 % 06/15/2024 2:55 PM [facility] Lymphocyte % 20.6 17.0 - 47.0 % 06/15/2024 2:55 PM [facility] Monocyte % 9.0 3.0 - 11.0 % 06/15/2024 2:55 PM [facility] Eosinophil % 1.2 0.0 - 7.0 % 06/15/2024 2:55 PM [facility] Basophil % 0.5 0.0 - 1.6 % 06/15/2024 2:55 PM [facility] Immature Granulocytes % 0.2 0.0 - 1.0 % 06/15/2024 2:55 PM [facility] Neutrophil Absolute 6.69 1.60 - 7.50 x10E9/L 06/15/2024 2:55 PM [facility] Lymphocyte Absolute 2.01 1.00 - 4.40 x10E9/L 06/15/2024 2:55 PM [facility] Monocyte Absolute 0.88 0.15 - 1.00 x10E9/L 06/15/2024 2:55 PM [facility] Eosinophil Absolute 0.12 0.00 - 0.60 x10E9/L 06/15/2024 2:55 PM [facility] Basophil Absolute 0.05 0.00 - 0.13 x10E9/L 06/15/2024 2:55 PM [facility] Blood BLOOD SPECIMEN / Unknown Lab Venipuncture / Unknown 06/15/2024 2:41 PM SENIOR SOFTWARE QUALITY ENGINEER 06/15/2024 2:47 PM SENIOR SOFTWARE QUALITY ENGINEER Remi Beckett MD LAB - HEMATOLOGY ORDERABLES [facility] [address] [place] [address], [facility] [phone] * (ABNORMAL) COMPREHENSIVE METABOLIC PANEL (06/15/2024 2:41 PM SENIOR SOFTWARE QUALITY ENGINEER) Only the most recent of9 resultswithin the time period is included. BUN 28(H) 7 - 26 mg/dL 06/15/2024 3:20 PM [facility] Creatinine 0.86 0.56 - 0.96 mg/dL 06/15/2024 3:20 PM [facility] Sodium 138 136 - 145 mmol/L 06/15/2024 3:20 PM [facility] Potassium 4.1 3.5 - 4.5 mmol/L 06/15/2024 3:20 PM [facility] Chloride 103 98 - 107 mmol/L 06/15/2024 3:20 PM [facility] CO2 22 22 - 29 mmol/L 06/15/2024 3:20 PM [facility] Glucose 104(H) 70 - 99 mg/dL 06/15/2024 3:20 PM [facility] Calcium 10.2 8.4 - 10.2 mg/dL 06/15/2024 3:20 PM [facility] Protein Total 8.1 6.0 - 8.3 g/dL 06/15/2024 3:20 PM [facility] Albumin 4.0 3.4 - 5.0 g/dL 06/15/2024 3:20 PM [facility] Bilirubin Total 0.3 0.2 - 1.2 mg/dL 06/15/2024 3:20 PM [facility] Alkaline Phosphatase 78 40 - 150 U/L 06/15/2024 3:20 PM [facility] ALT 13 5 - 55 U/L 06/15/2024 3:20 PM [facility] AST 16 5 - 34 U/L 06/15/2024 3:20 PM [facility] Anion Gap 13 6 - 16 06/15/2024 3:20 PM [facility] BUN/Creatinine Ratio 33(H) 7 - 23 06/15/2024 3:20 PM [facility] Osmolality Calculated 292 275 - 295 mOsm/kg 06/15/2024 3:20 PM [facility] Albumin/Globulin Ratio 1.0(L) 1.1 - 2.3 06/15/2024 3:20 PM [facility] eGFR by CKD-EPI 75(L) >=90 mL/min/1.7 3 m2 06/15/2024 3:20 PM [facility] Blood BLOOD SPECIMEN / Unknown Lab Venipuncture / Unknown 06/15/2024 2:41 PM SENIOR SOFTWARE QUALITY ENGINEER 06/15/2024 2:47 PM SENIOR SOFTWARE QUALITY ENGINEER Remi Beckett MD LAB - CHEMISTRY ORDERABLES [facility] [address] [place] [id number], [facility] [phone] * (ABNORMAL) PHOSPHORUS BLOOD (06/15/2024 2:41 PM SENIOR SOFTWARE QUALITY ENGINEER) Only the most recent of20 resultswithin the time period is included. Phosphorus 6.5(H) 2.9 - 5.1 mg/dL 06/15/2024 3:20 PM [facility] Blood BLOOD SPECIMEN / Unknown Lab Venipuncture / Unknown 06/15/2024 2:41 PM SENIOR SOFTWARE QUALITY ENGINEER 06/15/2024 2:47 PM SENIOR SOFTWARE QUALITY ENGINEER Yosi Bustamante MD LAB - CHEMISTRY ORD ERABLES Performing Organization Address [facility]/ZIP Co de Phone Number [address] [address], [facility] [phone] * MAGNESIUM BLOOD (06/15/2024 2:41 PM SENIOR SOFTWARE QUALITY ENGINEER) Only the most recent of18 resultswithin the time period is included. Magnesium 1.7 1.6 - 2.6 mg/dL 06/15/2024 3:20 PM SENIOR SOFTWARE QUALITY ENGINEER [facility] Blood BLOOD SPECIMEN / Unknown Lab Venipuncture / Unknown 06/15/2024 2:41 PM SENIOR SOFTWARE QUALITY ENGINEER 06/15/2024 2:47 PM SENIOR SOFTWARE QUALITY ENGINEER Remi Beckett MD LAB - CHEMISTRY ORDERABLES Performing Organization Address [facility] Co de Phone Number [address] [address], [facility] [phone] * (ABNORMAL) TSH (06/15/2024 2:41 PM SENIOR SOFTWARE QUALITY ENGINEER) Only the most recent of9 resultswithin the time period is included. TSH 0.029(L) 0.350 - 4.940 uIU/mL 06/15/2024 3:38 PM SENIOR SOFTWARE QUALITY ENGINEER [facility] Blood BLOOD SPECIMEN / Unknown Lab Venipuncture / Unknown 06/15/2024 2:41 PM SENIOR SOFTWARE QUALITY ENGINEER 06/15/2024 2:47 PM SENIOR SOFTWARE QUALITY ENGINEER Yosi Bustamante MD LAB - CHEMISTRY ORD ERABLES Performing Organization Address [facility]/ZIP Co de Phone Number [address] [address], [facility] [phone] * WA LARYNGOSCOPY,FLEX FIBER,DIAGNOSTIC (02/27/2024 9:28 AM CDT) Narrative Neri Delgado MD - 02/27/2024 9:28 AM CDT Neri Delgado MD ? 02/27/2024 ??9:32 AM Procedure Note Anesthesia: Lidocaine 2% and Stone-Synephrine 1/2% Endoscopy Type: ??Flexible Mwbpl-Kmewbolldpyyji-Ktmgxaoehawy Procedure Details: ??Informed consent was obtained. ??The patient was placed in the sitting position. ??After topical anesthesia and decongestion, the 4 mm laryngoscope was passed. ??The nasal cavities, nasopharynx, oropharynx, hypopharynx, and larynx were all examined. ??Vocal cords were examined during respiration and phonation. Findings: -no mucosal lesions or masses seen. Stable right vocal cord immobility but with good compensation. There is pooling of clear secretions in the right piriform which also reproduces her pain with palpation from the scope. Disposition: The patient tolerated procedure well. Complications: None Neri Delgado MD PROCEDURE/MINOR SURG ICAL ORDERABLES * PET CT WHOLE BODY (02/25/2024 11:50 AM CDT) Only the most recent of3 resultswithin the time period is included. Anatomical Region Laterality Modality Positron Emissio n Tomography (PET) 02/25/2024 10:4 5 AM CDT Impressions 02/25/2024 4:00 PM CDT IMPRESSION: 1.Redemonstrated postsurgical changes of a cervicothoracic region with interval decreased metabolic activity in the cervical spine suggestive of partial response to therapy. Of note, evaluation is limited due to adjacent muscular activity. 2.Interval resolution of previously seen focal FDG activity within the right thyroidectomy bed. However, this area is also affected by adjacent muscular activity in the neck and streak artifacts from spinal instrumentation. 3.Previously mentioned 5 mm right lower lobe pulmonary nodule without significant FDG uptake is not appreciated in today's exam may be too small to be characterized by PET. Of note, respiratory motion may limit evaluation of the lower lung zone. > Dictated by Tex Andrew (Artificial Plastic Eye Maker) 02/25/2024 10:45 AM ITiesha DO have personally reviewed and interpreted this examination/study. > Interpreting Provider: Tiesha Sy DO on 02/25/2024 4:00 PM Narrative 02/25/2024 4:00 PM CDT PROCEDURE: ??PET CT WHOLE BODY DATE/TIME OF EXAM: ??02/25/2024 11:50 AM CLINICAL INFORMATION: None relevant/not provided if blank. 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 Referring Physician: Marcio Mcintosh MD HISTORY: 63-year-old woman with history of papillary thyroid carcinoma diagnosed in 2020 status post total thyroidectomy, additional mass excision in 2021, radiation to C-spine metastases x 2 most recently 10/22/2023. Currently on immunotherapy since January 2024. PET to evaluate disease post radiation therapy. Evaluate for subsequent treatment strategy. TECHNIQUE: ??6.17 mCi of F-18 FDG by IV in the right antecubital fossa. PET/CT image acquisition from top of the head to the feet after approximately ??60 minutes post-injection with the CT being low-dose, non-contrast. No separate report for the CT was used for attenuation correction and anatomic localization. Blood glucose level at the time of injection was 101 mg/dl. Patient's BMI is 23.34 kg/m??. COMPARISON: PET/CT 10/06/2023 FINDINGS: For reference, SUVmax of liver is 3.8, previously 3.5. Head and neck: Physiologic metabolic uptake in the brain. Previously seen area of increased FDG activity within right neck is not seen in today's exam however, there is heterogenous FDG activity in both sides of the neck anterior/posterior cervical musculature limiting evaluation. Increased FDG activity in the larynx predominantly to the left side with SUV max 6.4 likely arytenoid normal variant. Increased FDG activity in the esophagus/proximal stomach may be inflammatory. Right maxillary sinus opacified without increased activity likely sinus disease. Chest: Calcified granuloma in the right upper lobe without abnormal FDG activity with calcified right hilar lymph nodes without abnormal FDG activity and calcification in the spleen is likely related to old granulomatous disease. No pneumothorax or pleural effusion. Abdomen and pelvis: The liver, kidneys, adrenal glands and pancreas are grossly unremarkable. Cholelithiasis without features of acute cholecystitis. Heterogenous FDG activity is seen throughout the bowel. Nonspecific increased FDG activity in the anorectal verge. Benign-appearing bilateral inguinal nodes. Musculoskeletal: Redemonstrated cervicothoracic postsurgical spine fusion changes with additional areas of focal activity within the cervical spinal vertebrae predominantly at C6/C7 SUV max 7.2, previously 9.7 and at C5 with SUV max 5.5, previously 8.7. Evaluation is somewhat limited due to instrumentation and adjacent muscular activity. There is background of decreased activity within the cervical spine related to radiation therapy. ??Near symmetric increased radiotracer activity at the T8 with SUV max of the right posterior aspect 3.6 and on the left posterior aspects 2.9 without underlying osseous changes may represent degenerative/inflammatory changes. Severe left hip osteoarthritis with reactive changes. Left lower extremity is wasted when compared to right lower extremity for clinical correlation. Procedure Note Tiesha Sy, DO - 02/25/2024 PROCEDURE: PET CT WHOLE BODY DATE/TIME OF EXAM: 02/25/2024 11:50 AM CLINICAL INFORMATION: None relevant/not provided if blank. 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 Referring Physician: Marcio Mcintosh MD HISTORY: 63-year-old woman with history of papillary thyroid carcinoma diagnosed in 2020 status post total thyroidectomy, additional massexcision in 2021, radiation to C-spine metastases x 2 most recently 10/22/2023. Currently on immunotherapy since January 2024. PET to evaluate disease post radiation therapy. Evaluate for subsequent treatment strategy. TECHNIQUE: 6.17 mCi of F-18 FDG by IV in the right antecubital fossa. PET/CT image acquisition from top of the head to the feet after approximately 60 minutes post-injection with the CT being low-dose, non-contrast. No separate report for the CT was used for attenuation correction and anatomic localization. Blood glucose level at the time of injection was 101 mg/dl. Patient's BMI is 23.34 kg/m??. COMPARISON: PET/CT 10/06/2023 FINDINGS: For reference, SUVmax of liver is 3.8, previously 3.5. Head and neck: Physiologic metabolic uptake in the brain. Previously seen area of increased FDG activity within right neck is not seen in today's exam however, there is heterogenous FDG activity in both sides of the neck anterior/posterior cervical musculature limiting evaluation. IncreasedFDG activity in the larynx predominantly to the left side with SUV max 6.4 likely arytenoid normal variant. Increased FDG activity in the esophagus/proximal stomach may be inflammatory. Right maxillary sinus opacified without increased activity likely sinus disease. Chest: Calcified granuloma in the right upper lobe without abnormal FDG activity with calcified right hilar lymph nodes without abnormal FDG activity and calcification in the spleen is likely related to old granulomatous disease. No pneumothorax or pleural effusion. Abdomen and pelvis: The liver, kidneys, adrenal glands and pancreas are grosslyunremarkable. Cholelithiasis without features of acute cholecystitis. Heterogenous FDG activity is seen throughout the bowel. Nonspecific increased FDGactivity in the anorectal verge. Benign-appearing bilateral inguinal nodes. Musculoskeletal: Redemonstrated cervicothoracic postsurgical spine fusion changes with additional areas of focal activity within the cervical spinal vertebrae predominantly at C6/C7 SUV max 7.2, previously 9.7 and at C5 with SUVmax 5.5, previously 8.7. Evaluation is somewhat limited due toinstrumentation and adjacent muscular activity. There is background of decreasedactivity within the cervical spine related to radiation therapy. Near symmetric increased radiotracer activity at the T8 with SUV max of the right posterior aspect 3.6 and on the left posterior aspects 2.9 without underlying osseous changes may represent degenerative/inflammatorychanges. Severe left hip osteoarthritis with reactive changes. Left lowerextremity is wasted when compared to right lower extremity for clinicalcorrelation. IMPRESSION: 1.Redemonstrated postsurgical changes of a cervicothoracic region with interval decreased metabolic activity in the cervical spine suggestiveof partial response to therapy. Of note, evaluation is limited due toadjacent muscular activity. 2.Interval resolution of previously seen focal FDG activity within the right thyroidectomy bed. However, this area is also affected by adjacent muscular activity in the neck and streak artifacts from spinal instrumentation. 3.Previously mentioned 5 mm right lower lobe pulmonary nodule without significant FDG uptake is not appreciated in today's exam may be toosmall to be characterized by PET. Of note, respiratory motion may limit evaluation of the lower lung zone. > Dictated by Tex Andrew (Artificial Plastic Eye Maker) 02/25/2024 10:45 AM I, Tiesha Yossi, DO have personally reviewed and interpreted this examination/study. > Interpreting Provider: Tiesha Sy DO on 02/25/2024 4:00 PM Marcio Mcintosh MD NM ORDERABLES * GLUCOSE SCREEN - POCT (IP) [facility] (02/25/2024 10:15 AM CDT) Only the most recent of3 resultswithin the time period is included. Glucose WB/POC 101 70 - 115 mg/dL [facility] POCT TESTING Blood BLOOD SPECIMEN / Unknown 02/25/2024 10:15 AM CDT Marcio Mcintosh MD LAB - POINT OF CARE ORDERABLES Performing Organization Address City/State/[facility] Co de Phone Number [facility] POCT TESTING [address] [place] [address], [facility] [phone] * MRI BRAIN WWO CONTRAST (11/05/2023 3:45 PM CDT) Anatomical Region Laterality Modality Head Magnetic Resonan ce 11/08/2023 2:02 PM CDT Impressions 11/08/2023 2:17 PM CDT IMPRESSION: 1. No evidence of brain metastases. 2. 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 > Interpreting Provider: William Qiu MD on 11/08/2023 2:17 PM Narrative 11/08/2023 2:17 PM CDT PROCEDURE: ??MRI BRAIN WWO CONTRAST, DATE/TIME OF EXAM: ??11/05/2023 3:45 PM, LOCATION ??[facility] INDICATION: C73: Malignant tumor of thyroid gland (HCC) ADDITIONAL CLINICAL INFORMATION: Ordering Provider Reason For Exam: Technologist Note: Additional: TECHNIQUE: MRI of the brain was performed prior to and following the uneventful administration of intravenous contrast according to a tumor protocol. CONTRAST: GADOBUTROL 1 MMOL/ML IV SSM SO:6 mL COMPARISON: 08/17/2020. FINDINGS: Redemonstrated is a yolk defined area of signal abnormality with mild enhancement in the posterior right putamen measuring approximately 1.6 x 1.0 cm. There appears to be an enhancing vessel leading into the periventricular region of the trigone of the right lateral ventricle. There is mild suspended artifacts within this lesion. 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 No evidence of acute cerebral infarction is seen. No evidence of acute or chronic hemorrhage is identified. There is mild cerebral volume loss with associated ex vacuo ventricular dilatation. No mass effect or midline shift is seen. Mild periventricular and subcortical white matter FLAIR hyperintensities are nonspecific, but can be seen in the setting of chronic small vessel ischemic disease. Other than a partially empty sella, the corpus callosum and sella appear normal. The posterior fossa, brainstem, and craniocervical junction appear normal. The visualized portions of the orbits, paranasal sinuses, and mastoids appear normal. Normal flow voids are demonstrated in the carotid arteries and basilar artery. The calvarium and visualized cervical spine appear normal. Procedure Note William Qiu MD - 11/08/2023 PROCEDURE: MRI BRAIN WWO CONTRAST, DATE/TIME OF EXAM: 11/05/2023 3:45PM, LOCATION [facility] INDICATION: C73: Malignant tumor of thyroid gland (HCC) ADDITIONAL CLINICAL INFORMATION: Ordering Provider Reason For Exam: Technologist Note: Additional: TECHNIQUE: MRI of the brain was performed prior to and following the uneventful administration of intravenous contrast according to a tumor protocol. CONTRAST: GADOBUTROL 1 MMOL/ML IV SSM SO:6 mL COMPARISON: 08/17/2020. FINDINGS: Redemonstrated is a yolk defined area of signal abnormality with mild enhancement in the posterior right putamen measuring approximately 1.6 x 1.0 cm. There appears to be an enhancing vessel leading into the periventricular region of the trigone of the right lateral ventricle.There is mild suspended artifacts within this lesion. 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 No evidence of acute cerebral infarction is seen. No evidence of acuteor chronic hemorrhage is identified. There is mild cerebral volume losswith associated ex vacuo ventricular dilatation. No mass effect or midlineshift is seen. Mild periventricular and subcortical white matter FLAIR hyperintensities are nonspecific, but can be seen in the setting ofchronic small vessel ischemic disease. Other than a partially empty sella, the corpus callosum and sella appear normal. The posterior fossa, brainstem, and craniocervical junction appear normal. The visualized portions of the orbits, paranasal sinuses, and mastoids appear normal. Normal flow voids are demonstrated in the carotidarteries and basilar artery. The calvarium and visualized cervical spine appear normal. IMPRESSION: 1. No evidence of brain metastases. 2. 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 > Interpreting Provider: William Qiu MD on 11/08/2023 2:17 PM Remi Beckett MD MR ORDERABLES * HEPATITIS B SURFACE ANTIBODY (11/04/2023 11:07 AM CDT) [facility] Hepatitis B Virus Surface Antibody Non-react oswaldo Non-react oswaldo 11/04/2023 12:05 PM CDT [facility] Comment: < 8 mIU/mL Hepatitis B surface Antibody (HBsAb). Nonreactive for HBsAb - individual is considered not immune to Hepatitis B Virus infection. Hepatitis B Surface Antibody Quantitative 0.0 <8.0 mIU/mL 11/04/2023 12:05 PM CDT [facility] Comment: Hepatitis B Surface Antibody Numeric Result Interpretation: ? Nonreactive: ?<8.0 mIU/mL ? Indeterminate: ??8.0 - 12.0 mIU/mL ? Reactive: ?>12.0 mIU/mL ? Blood BLOOD SPECIMEN / Unknown Lab Venipuncture / Unknown 11/04/2023 11:07 AM CDT 11/04/2023 11:13 AM CDT Remi Beckett MD LAB - CHEMISTRY ORDERABLES [facility] [address] [place] [id number], [facility] [phone] * HEPATITIS B CORE ANTIBODY TOTAL (11/04/2023 11:07 AM CDT) HBc Antibody Total Non-reacti ve Non-reacti ve 11/04/2023 12:05 PM CDT [facility] Blood BLOOD SPECIMEN / Unknown Lab Venipuncture / Unknown 11/04/2023 11:07 AM CDT 11/04/2023 11:13 AM CDT Remi Beckett MD LAB - CHEMISTRY ORDERABLES Performing Organization Address [facility]/ZIP Co de Phone Number [address] [address], [facility] [phone] * HEPATITIS B SURFACE ANTIGEN W RFLX CONFIRMATION (11/04/2023 11:07 AM CDT) Pathologist [facility] Hepatitis B Virus Surface Antigen Non-reacti ve Non-reacti ve 11/04/2023 12:05 PM CDT [facility] Blood BLOOD SPECIMEN / Unknown Lab Venipuncture / Unknown 11/04/2023 11:07 AM CDT 11/04/2023 11:13 AM CDT Remi Beckett MD LAB - CHEMISTRY ORDERABLES Performing Organization Address [facility] de Phone Number [address] [address], [facility] [phone] * EKG 12-LEAD (11/01/2023 11:15 AM CDT) Only the most recent of2 resultswithin the time period is included. Pathologist [facility] Ventricular Rate 81 BPM [facility] M[facility] Atrial Rate 81 BPM [facility] P-R Interval 118 ms [facility] QRS Duration ms 86 ms [facility] Q-T Interval ms 398 ms [facility] QTC Calculation (Bezet) 462 ms [facility] M[facility] Calculated P [place] 58 degrees [facility] M[facility] Calculated R [place] 35 degrees [facility] M[facility] Calculated T [place] 44 degrees [facility] Interpretation EKG NORMAL SINUS RHYTHM POSSIBLE LEFT ATRIAL ENLARGEMENT BORDERLINE ECG WHEN COMPARED WITH ECG OF 14-SEP-2022 13:58, NO SIGNIFICANT CHANGE WAS FOUND Confirmed by CLARE ROMERO, JAE ([id number]) on 11/03/2023 8:25:26 PM [facility] M[facility] 11/01/2023 11:1 5 AM CDT 11/03/2023 8:25 PM CDT Remi Beckett MD ECG ORDERABLES [facility] LINDY * (ABNORMAL) RENAL FUNCTION PANEL (10/25/2023 2:45 PM CDT) Only the most recent of15 resultswithin the time period is included. BUN 10 7 - 26 mg/dL 10/25/2023 3:37 PM [facility] Creatinine 0.81 0.56 - 0.96 mg/dL 10/25/2023 3:37 PM [facility] Sodium 139 136 - 145 mmol/L 10/25/2023 3:37 PM [facility] Potassium 3.8 3.5 - 4.5 mmol/L 10/25/2023 3:37 PM [facility] Chloride 103 98 - 107 mmol/L 10/25/2023 3:37 PM [facility] CO2 27 22 - 29 mmol/L 10/25/2023 3:37 PM [facility] Glucose 88 70 - 115 mg/dL 10/25/2023 3:37 PM [facility] Albumin 3.9 3.4 - 5.0 g/dL 10/25/2023 3:37 PM [facility] Calcium 8.8 8.4 - 10.2 mg/dL 10/25/2023 3:37 PM [facility] Phosphorus 4.7 2.9 - 5.1 mg/dL 10/25/2023 3:37 PM [facility] Anion Gap 9 6 - 16 10/25/2023 3:37 PM [facility] BUN/Creatinine Ratio 12 7 - 23 10/25/2023 3:37 PM [facility] Osmolality Calculated 286 275 - 295 mOsm/kg 10/25/2023 3:37 PM [facility] eGFR by CKD-EPI 81(L) >=90 mL/min/1.7 3 m2 10/25/2023 3:37 PM CDT [facility] Blood BLOOD SPECIMEN / Unknown Lab Venipuncture / Unknown 10/25/2023 2:45 PM CDT 10/25/2023 3:03 PM CDT Yosi Bustamante MD LAB - CHEMISTRY ORD ERABLES Performing Organization Address [facility]/ZIP Co de Phone Number [facility] [address] [place] [address], [facility] [phone] * [place] US SOFT TISS HEAD&NCK R-T IMG (10/25/2023 2:21 PM CDT) Narrative Yosi Bustamante MD - 10/25/2023 2:21 PM CDT Yosi Bustamante MD ? 10/25/2023 ??2:25 PM Ultrasound ??Of ??Thyroid Ultrasound of the Thyroid PHYSICIAN ?? Yosi Bustamante MD FELLOW NONE Test Date: 10/25/2023 Test Indication: Patient Active Problem List: ?? Psychophysiologic insomnia ?? Chronic fatigue ?? Snoring ?? Obsessive-compulsive disorder ?? Headache ?? Primary osteoarthritis of left hip ?? Nicotine dependence ?? High cholesterol ?? Other psoriasis ?? Complete paralysis of right vocal cord ?? Hoarseness ?? Tracheal mass ?? Lymphadenopathy of head and neck region ?? Cellulitis ?? Postoperative hypothyroidism ?? Thyroid cancer (CMS/HCC) ?? Hypocalcemia ?? Other hypoparathyroidism (CMS/HCC) ?? Neoplasm of uncertain behavior of skin ?? Other seborrheic keratosis ?? Depression, unspecified ?? Need for influenza vaccination ?? Left shoulder pain ?? Urinary incontinence ?? Chronic pain after cancer treatment ?? Cancer, metastatic to bone (HCC) ?? Cervical spine tumor ?? Gastroesophageal reflux disease ?? Lumbar radiculopathy ?? Secondary malignant neoplasm of bone (HCC) ?? Malignant tumor of thyroid gland (HCC) ?? Referring Physician: Dr. Yaya Villatoro MD Procedure Preformed: Ultrasound Only Nodule Size: THYROID GLAND SURGICALLY ABSENT LYMPH NODES IDENTIFIED RIGHT NECK LEVEL ??IIA 0.41 X 0.28 CM LEFT NECK LEVEL ??VB 0.63 X 0.30 CM LEVEL ??IIA ??0.78 X 0.39 CM Echogenicity: NORMAL NECK Vascularity: NORMAL NECK Number of Nodules Present: SEE ABOVE Calcifications: NONE Borders: N/A ASSESSMENT BENIGN APPEARING LYMPH NODES BIOCHEMICAL EVIDENCE OF THYROID CANCER ANATOMICA EVIDENCE OF THYROID CANCER Recommendations: PLAN THYROID/NECK ??ULTRASOUND TODAY LAB SOON FOR TSH , TG AND RENAL PANEL REFERRAL TO HEM/ONC IF NOT ALREADY DONE TO CONSIDER SYSTEMIC TREATMENT FOR THYROID CANCER RETURN IN THREE ??MONTHS LAB EVERY THREE MONTHS IF TKI STARTED WILL NEED MORE FREQUENT TESTING DOSE OF THYROID MEDICATION MIGHT CHANGE Instructions for taking levothyroxine Brand name is preferred Take thyroid pill all by itself Take thyroid pill one hour before food or 2 to 3 hours after food Heat, humidity, and direct sunlight will cause a loss of potency Never store thyroid pill in the bathroom LEVOTHYROXINE 112 MCG DAILY NEW PRESCRIPTION PROLIA INJECTION PRESCRIPTION ORDERED PATIENT HAS BEEN PRESCRIBED LENVATINIB BUT NEEDS TO SEE DENTIST FIRST Yosi Bustamante MD Division of Endocrinology Yosi Bustamante MD PROCEDURE/MINOR MADELINE GICAL ORDERABLES * Rad Onc Aria Session Summary (10/22/2023 11:18 AM CDT) [facility] Course ID [id number] ine RAD ONC TREATMENT Course First Treatment Date 10/18/2023 1:36 PM RAD ONC TREATMENT Reference Point ID [id number] RAD ONC TREATMENT Reference Point Dosage Given to Date 30 Gy RAD ONC TREATMENT Reference Point Session Dosage Given 6 Gy RAD ONC TREATMENT Plan ID #CSpineRet x RAD ONC TREATMENT Plan Fractions Treated to Date 5 RAD ONC TREATMENT Plan Total Fractions Prescribed 5 RAD ONC TREATMENT Plan Total Prescribed Dose 3000 cGy RAD ONC TREATMENT 10/22/2023 11:1 8 AM CDT Provider Unknown RADIATION ONCOLOGY O RDERABLES RAD ONC TREATMENT * (ABNORMAL) TSH REFLEX FREE T4 (10/21/2023 2:50 PM CDT) Only the most recent of15 resultswithin the time period is included. Pathologist [facility] TSH <0.010(L) 0.350 - 4.940 uIU/mL 10/21/2023 3:49 PM CDT [facility] Blood BLOOD SPECIMEN / Unknown Lab Venipuncture / Unknown 10/21/2023 2:50 PM CDT 10/21/2023 3:04 PM CDT Remi Beckett MD LAB - CHEMISTRY ORDERABLES [address] [address], [place] [phone] * T4 FREE (10/21/2023 2:50 PM CDT) Only the most recent of14 resultswithin the time period is included. T4 Free 1.4 0.7 - 1.5 ng/dL 10/21/2023 4:22 PM CDT [facility] Blood BLOOD SPECIMEN / Unknown Lab Venipuncture / Unknown 10/21/2023 2:50 PM CDT 10/21/2023 3:04 PM CDT Remi Beckett MD LAB - CHEMISTRY ORDERABLES Performing Organization Address City/[facility]/ZIP Co de Phone Number [address] [address], [place] [phone] * [facility] BLOOD DRAW (10/21/2023 2:49 PM CDT) Pathologist [facility] Blood Sent to [facility] 10/22/2023 9:00 AM CDT [facility] ([facility]) Comment:Collection and sendo ut completed. Blood BLOOD SPECIMEN / Unknown Lab Venipuncture / Unknown 10/21/2023 2:49 PM CDT 10/22/2023 8:33 AM CDT Remi Beckett MD LAB - HEMATOLOGY ORDERABLES [facility] ([facility]) [address], [address] [place] [address] * [facility] XF (10/21/2023 2:37 PM CDT) Pathology/Cytolo gy MISCELLANEOUS SAMPLES / Unknown 10/21/2023 2:37 PM CDT 10/21/2023 2:37 PM CDT Remi Beckett MD LAB - PATHOLOGY/ CYTOLOGY ORDERABLES Performing Organization Address City/[facility]/ZIP Co de Phone Number [facility] ([facility]) [address], [address] [place] [address] * [facility] XT (10/21/2023 2:37 PM CDT) Pathology/Cytolo gy MISCELLANEOUS SAMPLES / Unknown 10/21/2023 2:37 PM CDT 10/21/2023 2:37 PM CDT Remi Beckett MD LAB - PATHOLOGY/ CYTOLOGY ORDERABLES Performing Organization Address [facility] de Phone Number [facility] ([facility]) [address] [place] [address] * Rad Onc Aria Session Summary (10/21/2023 11:19 AM CDT) Course ID [id number] ine RAD ONC TREATMENT Course First Treatment Date 10/18/2023 1:36 PM RAD ONC TREATMENT Reference Point ID [id number] RAD ONC TREATMENT Reference Point Dosage Given to Date 24 Gy RAD ONC TREATMENT Reference Point Session Dosage Given 6 Gy RAD ONC TREATMENT Plan ID #CSpineRet x RAD ONC TREATMENT Plan Fractions Treated to Date 4 RAD ONC TREATMENT Plan Total Fractions Prescribed 5 RAD ONC TREATMENT Plan Total Prescribed Dose 3000 cGy RAD ONC TREATMENT 10/21/2023 11:1 9 AM CDT Provider Unknown RADIATION ONCOLOGY O RDERABLES Performing Organization Address [facility] Co de Phone Number RAD ONC TREATMENT * Rad Onc Aria Session Summary (10/20/2023 11:11 AM CDT) Course ID [id number] ine RAD ONC TREATMENT Course First Treatment Date 10/18/2023 1:36 PM RAD ONC TREATMENT Reference Point ID [id number] RAD ONC TREATMENT Reference Point Dosage Given to Date 18 Gy RAD ONC TREATMENT Reference Point Session Dosage Given 6 Gy RAD ONC TREATMENT Plan ID #CSpineRet x RAD ONC TREATMENT Plan Fractions Treated to Date 3 RAD ONC TREATMENT Plan Total Fractions Prescribed 5 RAD ONC TREATMENT Plan Total Prescribed Dose 3000 cGy RAD ONC TREATMENT 10/20/2023 11:1 1 AM CDT Provider Unknown RADIATION ONCOLOGY O RDERABLES Performing Organization Address [facility] Co de Phone Number RAD ONC TREATMENT * Rad Onc Aria Session Summary (10/19/2023 11:25 AM CDT) Course ID [id number] ine RAD ONC TREATMENT Course First Treatment Date 10/18/2023 1:36 PM RAD ONC TREATMENT Reference Point ID [id number] RAD ONC TREATMENT Reference Point Dosage Given to Date 12 Gy RAD ONC TREATMENT Reference Point Session Dosage Given 6 Gy RAD ONC TREATMENT Plan ID #CSpineRet x RAD ONC TREATMENT Plan Fractions Treated to Date 2 RAD ONC TREATMENT Plan Total Fractions Prescribed 5 RAD ONC TREATMENT Plan Total Prescribed Dose 3000 cGy RAD ONC TREATMENT 10/19/2023 11:2 5 AM CDT Provider Unknown RADIATION ONCOLOGY O RDERABLES Performing Organization Address [facility] Co de Phone Number RAD ONC TREATMENT * Rad Onc Aria Session Summary (10/18/2023 1:44 PM CDT) Course ID [id number] ine RAD ONC TREATMENT Course First Treatment Date 10/18/2023 1:36 PM RAD ONC TREATMENT Reference Point ID [id number] RAD ONC TREATMENT Reference Point Dosage Given to Date 6 Gy RAD ONC TREATMENT Reference Point Session Dosage Given 6 Gy RAD ONC TREATMENT Plan ID #CSpineRet x RAD ONC TREATMENT Plan Fractions Treated to Date 1 RAD ONC TREATMENT Plan Total Fractions Prescribed 5 RAD ONC TREATMENT Plan Total Prescribed Dose 3000 cGy RAD ONC TREATMENT 10/18/2023 1:44 PM CDT Provider Unknown RADIATION ONCOLOGY O RDERABLES RAD ONC TREATMENT * WA LARYNGOSCOPY,FLEX FIBER,DIAGNOSTIC (08/06/2023 3:02 PM SENIOR SOFTWARE QUALITY ENGINEER) Narrative Evelyn Ugalde MD - 08/06/2023 3:02 PM SENIOR SOFTWARE QUALITY ENGINEER Evelyn Ugalde MD ? 08/06/2023 ??4:01 PM Procedure Note Anesthesia: Lidocaine 2% and Stone-Synephrine 1/2% Endoscopy Type: ??Flexible Vgppa-Xjouqfvetfajio-Pnzcjdtxdrpb Procedure Details: ??Informed consent was obtained. ??The patient was placed in the sitting position. ??After topical anesthesia and decongestion, the 4 mm laryngoscope was passed. ??The nasal cavities, nasopharynx, oropharynx, hypopharynx, and larynx were all examined. ??Vocal cords were examined during respiration and phonation. Findings: -Right vocal cord paralysis with good glottic closure. ??No other lesions or masses or new findings. Disposition: The patient tolerated procedure well. Complications: None Neri Delgado MD PROCEDURE/MINOR SURG ICAL ORDERABLES * (ABNORMAL) CREATININE - POCT INTERFACED (03/25/2023 12:24 PM CDT) Only the most recent of4 resultswithin the time period is included. Creatinine POCT 0.88 0.30 - 1.30 mg/dL 03/25/2023 12:27 PM CDT [facility] eGFR 73(L) >90 mL/min/1.7 3 m2 03/25/2023 12:27 PM CDT [facility] Blood BLOOD SPECIMEN / Unknown 03/25/2023 12:24 PM CDT 03/25/2023 12:26 PM CDT Marcio Mcintosh MD LAB - POINT OF CARE ORDERABLES Performing Organization Address City/State/[facility] Co ar Phone Number [facility] [address] [place] [address], [facility] [phone] * WA LARYNGOSCOPY,FLEX FIBER,DIAGNOSTIC (01/29/2023 4:13 PM CDT) Narrative Neri Delgado MD - 01/29/2023 4:13 PM CDT Neri Delgado MD ? 01/30/2023 ??7:14 AM Procedure Note Anesthesia: Lidocaine 2% and Stone-Synephrine 1/2% Endoscopy Type: ??Flexible Enmxp-Weovrkcahctnew-Wwwbidedfjsv Procedure Details: ??Informed consent was obtained. ??The patient was placed in the sitting position. ??After topical anesthesia and decongestion, the 4 mm laryngoscope was passed. ??The nasal cavities, nasopharynx, oropharynx, hypopharynx, and larynx were all examined. ??Vocal cords were examined during respiration and phonation. Findings: -Right vocal cord paralysis with early good glottic closure. ??No other lesions or masses or new findings. Disposition: The patient tolerated procedure well. Complications: None Neri Delgado MD PROCEDURE/MINOR SURG ICAL ORDERABLES * PAIN MANAGEMENT PROCEDURE TIME (01/14/2023 2:19 PM CDT) Only the most recent of2 resultswithin the time period is included. Anatomical Region Laterality Modality Radio Fluoroscop y Narrative 01/14/2023 2:27 PM CDT Gerard Gallegos MD ? 01/14/2023 ??2:27 PM PROCEDURE NOTE - LEFT Hip intra-articular steroid injection Primary pain complaint: Hip Pain Pre-procedure diagnosis: Hip arthritis Post-procedure diagnosis: Same Attending staff: Dr. Gerard Kay MD., Ph.D. Scientific Artist: MD Ishaan. The procedure and risks were explained, and written consent obtained from the patient. Immediately prior to starting the procedure, a time-out safety check was conducted. The patient's identification, procedure name, procedure site, and procedure laterality were confirmed with the patient. The patient was placed in the supine position. A BP cuff and oxygen saturation monitors were attached and the patient was monitored throughout the procedure with pulse-oximetry. The LEFT ??hip joint was identified with fluoroscopy in the AP view. The skin was prepped using chloraprep and draped in an aseptic fashion. The skin and subcutaneous tissue was anesthetized using 4 ml of 1% lidocaine with a 25G needle. A 3.5 inch 25 gauge spinal needle was advanced from the trochanteric line to the just distal to the femoral head/neck area. Contrast was injected to confirm intraarticular flow. Subsequently, 6 ml solution containing 1 ml of Triamcinolone 40mg/ml and 5 ml bupivacaine 0.25% was injected after negative aspiration of blood. The needle was withdrawn. Patient was brought to the recovery room for observation in stable condition and was discharged with written discharge instructions with an escort. Vitals were recorded as part of the prateek-procedure nursing note. Pain pre-procedure: 02/11 Pain post-procedure: 07/14 Anesthesia: local anesthesia Complications: none Plan of care: Patient advised to contact the Pain Center for any of the followin. Fever, chills or night sweats 2. New onset of severe sharp pain 3. Any new upper/lower extremity weakness or numbness 4. Any questions regarding the procedure If unable to contact the Pain Center, patient instructed to go to local Emergency Room. I, Gerard Kay, performed the whole procedure. Gerard Kay MD DIAGNOSTIC IMAGIN G ORDERABLES * NICOTINE + METABOLITES BLOOD (11/02/2022 12:46 PM CDT) Nicotine <5 ng/mL 11/06/2022 12:39 AM CDT [employer] ([facility]) Comment: INTERPRETIVE INFORMATION: Nicotine and Metabolites, ?Serum or Plasma, ?Quantitative Methodology: Quantitative Liquid Chromatography-Tandem Mass Spectrometry Positive cutoff: 5 ng/mL For medical purposes only; not valid for forensic use. This test is designed to evaluate recent use of nicotine-containing products. ??Passive and active exposure cannot be discriminated definitively, although a cutoff of 10 ng/mL cotinine is frequently used for surgery qualification purposes. ?? For smoking cessation programs or compliance testing, the absence of expected drug(s) and/or drug metabolite(s) may indicate non-compliance, inappropriate timing of specimen collection relative to drug administration, poor drug absorption, or limitations of testing. This test cannot distinguish between use of tobacco and purified nicotine products. The concentration value must be greater than or equal to the cutoff to be reported as positive. ?? This test was developed and its performance characteristics determined by [employer]. It has not been cleared or approved by the [place] Food and Drug Administration. This test was performed in a CLIA certified laboratory and is intended for clinical purposes. Performed By: [facility] [address] [place] [id number] Digital Imaging Technician: Devaughn Dacosta MD, PhD Cotinine 128 ng/mL 11/06/2022 12:39 AM CDT [facility] ([facility]) Comment: Consistent with use of a nicotine-containing product within 1 week of specimen collection. ??Cotinine is the major metabolite of nicotine. ??The half-life of cotinine is approximately 16 hours. Blood BLOOD SPECIMEN / Unknown Lab Venipuncture / Unknown 11/02/2022 12:46 PM CDT 11/02/2022 1:20 PM CDT Yosi Bustamante MD LAB - CHEMISTRY ORD ERABLES [facility] ([facility]) [address] [place] [address], [facility] * [place] US SOFT TISS HEAD&NCK R-T IMG (11/02/2022 12:21 PM CDT) Narrative Yosi Bustamante MD - 11/02/2022 12:21 PM CDT Yosi Bustamante MD ? 11/02/2022 12:28 PM Ultrasound ??Of ??Thyroid Ultrasound of the Thyroid PHYSICIAN ??Yosi Bustamante MD FELLOW Julissa YU MD Test Date: 11/02/2022 Test Indication: Patient Active Problem List: ?? Psychophysiologic insomnia ?? Chronic fatigue ?? Snoring ?? Obsessive-compulsive disorder ?? Headache ?? Primary osteoarthritis of left hip ?? Nicotine dependence ?? High cholesterol ?? Other psoriasis ?? Complete paralysis of right vocal cord ?? Hoarseness ?? Tracheal mass ?? Lymphadenopathy of head and neck region ?? Cellulitis ?? Postoperative hypothyroidism ?? Thyroid cancer (CMS/HCC) ?? Hypocalcemia ?? Other hypoparathyroidism (CMS/HCC) ?? Neoplasm of uncertain behavior of skin ?? Other seborrheic keratosis ?? Depression, unspecified ?? Need for influenza vaccination ?? Left shoulder pain ?? Urinary incontinence ?? Chronic pain after cancer treatment ?? Cancer, metastatic to bone (CMS/HCC) ?? Cervical spine tumor ?? Referring Physician: Dr. Joseph Manzanares MD Procedure Preformed: Ultrasound Only Nodule Size: THYROID GLAND SURGICALLY ABSENT LYMPH NODES IDENTIFIED RIGHT NECK LEVEL ??VA 0.63 X 0.32 CM WITH HILAR LINE LEVEL ??VB 0.30 X 0.26 CM LEVEL ??VB 0.31 X 0.30 CM LEFT NECK LEVEL ??VB 0.36 X 0.27 CM LEVEL ??IIA 0.60 X 0.36 CM LEVEL ??IIA ??0.38 X 0.27 CM Echogenicity: NORMAL NECK Vascularity: NORMAL NECK Number of Nodules Present: SEE ABOVE Calcifications: NONE Borders: N/A ASSESSMENT BENIGN APPEAR ING LYMPH NODES THYROID CANCER HYPOTHYROIDISM S/P SPINAL CORD MASS REMOVED CONSISTENT WITH MET FROM THYROID Recommendations: PLAN THYROID/NECK ULTRASOUND TODAY LAB TODAY RETURN IN SIX MONTHS LAB IN SIX MONTHS STANDING ORDER FOR LAB EVERY THREE MONTHS CONTINUE CURRENT DOSE OF THYROID MEDICATION Instructions for taking levothyroxine Brand name is preferred Take thyroid pill all by itself Take thyroid pill one hour before food or 2 to 3 hours after food Heat, humidity, and direct sunlight will cause a loss of potency Never store thyroid pill in the bathroom NO PRESCRIPTION NEEDED SUGGESTED THAT PATIENT TALK TO NEUROSURGERY ABOUT SWALLOWING ISSUES AND IF PROBLEM NOT RELATED TO SURGERY THEN TO TALK TO DR ROSY Bustamante MD Division of Endocrinology Yosi Bustamante MD PROCEDURE/MINOR MADELINE GICAL ORDERABLES * CARDIAC EKG ORDER (10/09/2022 12:58 PM CDT) Narrative 10/09/2022 12:58 PM CDT Ordered by an unspecified provider. Scanned Document CARDIAC SERVICES ORD ERABLES * (ABNORMAL) BASIC METABOLIC PANEL (CALCIUM TOTAL) (10/07/2022 12:12 AM CDT) Only the most recent of19 resultswithin the time period is included. BUN 15 7 - 26 mg/dL 10/07/2022 12:43 AM [facility] Creatinine 0.56 0.56 - 0.96 mg/dL 10/07/2022 12:43 AM [facility] Sodium 143 136 - 145 mmol/L 10/07/2022 12:43 AM [facility] Potassium 3.8 3.5 - 4.5 mmol/L 10/07/2022 12:43 AM [facility] Chloride 106 98 - 107 mmol/L 10/07/2022 12:43 AM [facility] CO2 25 22 - 29 mmol/L 10/07/2022 12:43 AM CDT [facility] Glucose 92 70 - 115 mg/dL 10/07/2022 12:43 AM CDT [facility] Calcium 9.0 8.4 - 10.2 mg/dL 10/07/2022 12:43 AM T [facility] Anion Gap 16 8 - 18 10/07/2022 12:43 AM T [facility] BUN/Creatinine Ratio 27(H) 7 - 23 10/07/2022 12:43 AM T [facility] Osmolality Calculated 296 270 - 300 mOsm/kg 10/07/2022 12:43 AM [facility] eGFR by CKD-EPI >90 >=90 mL/min/1.7 3 m2 10/07/2022 12:43 AM [facility] Blood BLOOD SPECIMEN / Unknown Lab Venipuncture / Unknown 10/07/2022 12:12 AM CDT 10/07/2022 12:19 AM CDT Coy Gómez MD LAB - CHEMISTRY [facility] [employer] Organization Address City/State/ZIP Co de Phone Number [facility] [address] [place] [id number], [facility] [phone] * PREPARE (CROSSMATCH) RBC UNIT(S), 2 Units (10/06/2022 1:17 AM CDT) Only the most recent of2 resultswithin the time period is included. Unit Description AS1 LR PRBC [facility] BLOOD [facility] LAB Unit ABO B [facility] BLOOD [facility] LAB Unit Rh POS [facility] Product Number R02 [facility] B LOOD [facility]ANK LAB Unit Donor # [id number] [facility] Unit Status released [facility] COSMIC [place] D BANK LAB Product Code [id number] [facility] BLO OD BANK LAB Blood Type Barcode 7300 [facility]OD [facility] LAB Expiration Date [id number] S BLOOD BANK LAB Unit Description -1 LR PRBC LV [facility] BLOOD [facility] LAB Unit ABO B [facility] BLOOD [facility] LAB Unit Rh POS [facility] BLOOD [facility] LAB Product Number R52 [facility] B LOOD BANK LAB Unit Donor # [id number] [facility] BLOOD [facility] LAB Unit Status released [facility] BLOO D BANK LAB Product Code [id number] [facility] BLO OD BANK LAB Blood Type Barcode 7300 [facility] BLOOD [facility] LAB Expiration Date [id number] [facility] BLOOD BANK LAB Blood Bank BLOOD SPECIMEN / Unknown 10/02/2022 6:49 AM CDT Coy Gómez MD LAB - BLOOD BANK ORD ERABLES [facility] [address] [place] [address], [facility] [phone] * XR THORACIC SPINE 3VW (10/04/2022 9:40 AM CDT) Anatomical Region Laterality Modality Spine Radiographic Antonieta ging 10/04/2022 9:44 AM CDT Impressions 10/04/2022 12:48 PM CDT IMPRESSION: 1.Postsurgical changes from posterior C2-T2 fusion and C3-C7 decompression are present with paired rods and interpedicular screws. The surgical hardware appears intact. 2.No evidence of cervical spine fracture or malalignment. Report dictated by Kalin Kumar M.D. (radiology asst) I, Roger House DO have personally reviewed and interpreted this examination/study. > Interpreting Provider: oRger House DO on 10/04/2022 12:48 PM Narrative 10/04/2022 12:48 PM CDT PROCEDURE: ??XR CERVICAL SPINE 2 OR 3VW, XR THORACIC SPINE 3VW, DATE/TIME OF EXAM: ??10/04/2022 9:41 AM, LOCATION ??[facility] INDICATION: C79.51: Cancer, metastatic to bone (CMS/HCC) ADDITIONAL CLINICAL INFORMATION: Ordering Provider Reason For Exam: ??post op (accession [id number]), s/p PSIF (accession [id number]) COMPARISON: None. TECHNIQUE: AP and lateral views of the cervical spine. AP and lateral views of the thoracic spine. FINDINGS: Cervical Spine: Postsurgical changes from posterior C2-T2 fusion and C3-C7 decompression are present with paired rods and interpedicular screws. The surgical hardware appears intact. Numerous skin jess overlie the posterior cervical soft tissues. Surgical clips are noted within the cervical soft tissues. The vertebral height and alignment appear normal. Mild degenerative changes are noted with multilevel osteophyte formation. There is no fracture or subluxation. The disc spaces are maintained. No abnormal prevertebral soft tissue swelling is seen. Thoracic Spine: The vertebral alignment is normal. No fracture or dislocation is identified. The disc spaces are preserved. The lungs are clear. Calcified granulomas are redemonstrated within the right upper lung field and right hilar region. The visualized heart is normal. Procedure Note Roger House DO - 10/04/2022 PROCEDURE: XR CERVICAL SPINE 2 OR 3VW, XR THORACIC SPINE 3VW, DATE/TIMEOF EXAM: 10/04/2022 9:41 AM, LOCATION [facility] INDICATION: C79.51: Cancer, metastatic to bone (CMS/HCC) ADDITIONAL CLINICAL INFORMATION: Ordering Provider Reason For Exam: post op (accession [id number]), s/pPSIF (accession [id number]) COMPARISON: None. TECHNIQUE: AP and lateral views of the cervical spine. AP and lateralviews of the thoracic spine. FINDINGS: Cervical Spine: Postsurgical changes from posterior C2-T2 fusion and C3-C7 decompression are present with paired rods and interpedicular screws. The surgical hardware appears intact. Numerous skin jess overlie the posterior cervical soft tissues. Surgical clips are noted within the cervical soft tissues. The vertebral height and alignment appear normal. Mild degenerativechanges are noted with multilevel osteophyte formation. There is no fracture or subluxation. The disc spaces are maintained. No abnormal prevertebral soft tissue swelling is seen. Thoracic Spine: The vertebral alignment is normal. No fracture or dislocation is identified. The disc spaces are preserved. The lungs are clear. Calcified granulomas are redemonstrated within the right upper lung field and right hilar region. The visualized heart is normal. IMPRESSION: 1.Postsurgical changes from posterior C2-T2 fusion and C3-N3joqqyolzmtfdd are present with paired rods and interpedicular screws. The surgical hardware appears intact. 2.No evidence of cervical spine fracture or malalignment. Report dictated by Kalin Kumar M.D. (radiology asst) Roger Mckeon DO have personally reviewed and interpreted this examination/study. > Interpreting Provider: Roger House DO on 10/04/2022 12:48 PM Coy Gómez MD DIAGNOSTIC IMAGING O RDERABLES * XR CERVICAL SPINE 2 OR 3VW (10/04/2022 9:40 AM CDT) Only the most recent of2 resultswithin the time period is included. Anatomical Region Laterality Modality Spine Radiographic Antonieta ging 10/04/2022 9:44 AM CDT Impressions 10/04/2022 12:48 PM CDT IMPRESSION: 1.Postsurgical changes from posterior C2-T2 fusion and C3-C7 decompression are present with paired rods and interpedicular screws. The surgical hardware appears intact. 2.No evidence of cervical spine fracture or malalignment. Report dictated by Kalin Kumar M.D. (radiology asst) I, Roger House DO have personally reviewed and interpreted this examination/study. > Interpreting Provider: Roger House DO on 10/04/2022 12:48 PM Narrative 10/04/2022 12:48 PM CDT PROCEDURE: ??XR CERVICAL SPINE 2 OR 3VW, XR THORACIC SPINE 3VW, DATE/TIME OF EXAM: ??10/04/2022 9:41 AM, LOCATION ??[facility] INDICATION: C79.51: Cancer, metastatic to bone (CMS/HCC) ADDITIONAL CLINICAL INFORMATION: Ordering Provider Reason For Exam: ??post op (accession [id number]), s/p PSIF (accession [id number]) COMPARISON: None. TECHNIQUE: AP and lateral views of the cervical spine. AP and lateral views of the thoracic spine. FINDINGS: Cervical Spine: Postsurgical changes from posterior C2-T2 fusion and C3-C7 decompression are present with paired rods and interpedicular screws. The surgical hardware appears intact. Numerous skin jess overlie the posterior cervical soft tissues. Surgical clips are noted within the cervical soft tissues. The vertebral height and alignment appear normal. Mild degenerative changes are noted with multilevel osteophyte formation. There is no fracture or subluxation. The disc spaces are maintained. No abnormal prevertebral soft tissue swelling is seen. Thoracic Spine: The vertebral alignment is normal. No fracture or dislocation is identified. The disc spaces are preserved. The lungs are clear. Calcified granulomas are redemonstrated within the right upper lung field and right hilar region. The visualized heart is normal. Procedure Note Roger House DO - 10/04/2022 PROCEDURE: XR CERVICAL SPINE 2 OR 3VW, XR THORACIC SPINE 3VW, DATE/TIMEOF EXAM: 10/04/2022 9:41 AM, LOCATION [facility] INDICATION: C79.51: Cancer, metastatic to bone (CMS/HCC) ADDITIONAL CLINICAL INFORMATION: Ordering Provider Reason For Exam: post op (accession [id number]), s/pPSIF (accession [id number]) COMPARISON: None. TECHNIQUE: AP and lateral views of the cervical spine. AP and lateralviews of the thoracic spine. FINDINGS: Cervical Spine: Postsurgical changes from posterior C2-T2 fusion and C3-C7 decompression are present with paired rods and interpedicular screws. The surgical hardware appears intact. Numerous skin jess overlie the posterior cervical soft tissues. Surgical clips are noted within the cervical soft tissues. The vertebral height and alignment appear normal. Mild degenerativechanges are noted with multilevel osteophyte formation. There is no fracture or subluxation. The disc spaces are maintained. No abnormal prevertebral soft tissue swelling is seen. Thoracic Spine: The vertebral alignment is normal. No fracture or dislocation is identified. The disc spaces are preserved. The lungs are clear. Calcified granulomas are redemonstrated within the right upper lung field and right hilar region. The visualized heart is normal. IMPRESSION: 1.Postsurgical changes from posterior C2-T2 fusion and C3-S9kggclerpohluw are present with paired rods and interpedicular screws. The surgical hardware appears intact. 2.No evidence of cervical spine fracture or malalignment. Report dictated by Kalin Kumar M.D. (radiology asst) I, Roger House DO have personally reviewed and interpreted this examination/study. > Interpreting Provider: Roger House DO on 10/04/2022 12:48 PM Coy Gómez MD DIAGNOSTIC IMAGING O RDERABLES * PT-INR [facility] (10/02/2022 12:59 PM CDT) Only the most recent of2 resultswithin the time period is included. PT 12.9 12.1 - 14.8 Seconds 10/02/2022 1:54 PM CDT [facility] INR 1.0 See Comment 10/02/2022 1:54 PM CDT [facility] Comment:The suggested therap eutic range for standard coumadin (warfarin) therapy is an INR of 2.0-3.0. For high-risk patients (Mechanical Mitral Valve Prosthesis, etc.), the suggested prophylactic therapeutic range is an INR of 2.5-3.5. Blood BLOOD SPECIMEN / Unknown Venipuncture / Unknown 10/02/2022 12:59 PM CDT 10/02/2022 1:27 PM CDT Coy Gómez MD LAB - COAGULATION OR DERABLES Performing Organization Address [facility]/ZIP Co de Phone Number [facility] [address] [place] [address], [facility] [phone] * [place] OARM SURGERY (10/02/2022 11:17 AM CDT) Narrative [facility] RADIOLOG[facility] - 10/02/2022 11:48 AM CDT Fluoroscopy was used for this exam in the OR. Please see the Operative report. Coy Gómez MD FLUOROSCOPY ORDERABL ES Performing Organization Address [facility] Co de Phone Number [facility] * [place] RONNY SURGERY (10/02/2022 11:17 AM CDT) Narrative [facility] - 10/02/2022 11:18 AM CDT Fluoroscopy was used for this exam in the OR. Please see the Operative report. Coy Gómez MD FLUOROSCOPY ORDERABL ES Performing Organization Address [facility]/ZIP Co de Phone Number [facility] RADI[facility] * PATHOLOGY TISSUE (10/02/2022 9:59 AM CDT) Only the most recent of3 resultswithin the time period is included. Case Report Surgical Pathology Report ? Case: [id number] ? Authorizing Provider: ??Coy Gómez MD ?Collected: ? 10/02/2022 09:59 AM ? Ordering Location: ? [facility] ?Received: ?10/02/2022 11:08 AM ? Pathologist: ? Edin Scales MD ? Specimens: ?? A) - Spinal Cord, extradural tumor ? B) - Spinal Cord, extradural tumor ? 10/06/2022 1:13 PM [facility] Final Diagnosis Spinal cord, extradural tumor, resection (A): - Metastatic carcinoma. - See comment. Spinal cord, extradural tumor, resection (B): - Metastatic carcinoma. - See comment. Comment: The histopathological and immunohistochemical features of this tumor, along with the patient's history, are compatible with a metastatic thyroid carcinoma. 10/06/2022 1:13 PM [facility] Microscopic Description and Comment Frozen section diagnosis is confirmed. Sections show fibrocollagenous tissue with focal infiltration of malignant epithelial tumor cells that focally form glands. Immunohistochemical stains for TTF-1, CK7, CK20 and thyroglobulin were performed with adequate controls. The tumor cells are positive for TTF-1, CK7 and very focally for thyroglobulin. The tumor cells are negative for CK20 immunostaining. 10/06/2022 1:13 PM [facility] Clinical History 10/06/2022 1:13 PM [facility] Gross Description The requisition and specimen(s) are identified with the patient's Brisa Woody Waiteon. Received fresh, specimen A, are 2 pink 0.5 x 0.3 x 0.1 cm rubbery tissues which are submitted for touch prep and frozen section. The frozen section residue is entirely submitted in 1 cassette labeled A1. /ML The requisition and specimen(s) are identified with the patient's Brisa Woody RiosEdison. Received in formalin, specimen B, is an irregular 1.2 x 0.5 x 0.2 cm pink-yellow rubbery tissue which is submitted in toto in 1 cassette labeled B1. /ML 10/06/2022 1:13 PM [facility] Disclaimer The performance characteristics of all immunohistochemical and indirect immunofluorescence stains (if any) cited in this report were determined by the Histopathology Laboratory of [facility]. Some of these tests were developed by our own laboratory and have not been cleared or approved by the US Food and Drug Administration. The FDA does not require this test to go through premarket FDA review. These tests are used for clinical purposes. They should not be regarded as investigational or for research. This laboratory is certified under the Clinical Laboratory Improvement Amendments (CLIA) as qualified to perform high complexity clinical laboratory testing. This case has been personally reviewed and interpreted by the attending (teaching) pathologist. 10/06/2022 1:13 PM [facility] Embedded Images 10/06/2022 1:13 PM [facility] LAB Biopsy, Excision ENTIRE SPINAL CORD / Unknown 10/02/2022 9:59 AM CDT 10/02/2022 11:08 AM CDT Comment:Pre-op diagnosis: spine tumor Biopsy, Excision ENTIRE SPINAL CORD / Unknown 10/02/2022 10:42 AM CDT 10/02/2022 2:56 PM CDT Comment:Pre-op diagnosis: spine tumor Coy Gómez MD LAB - PATHOLOGY/CYTO LOGY ORDERABLES [facility] [address] [place] [address], [facility] [phone] * ETT LINE PERFORMABLE (10/02/2022 8:28 AM CDT) Narrative Ioana Reddy MD - 10/02/2022 8:28 AM CDT Ioana Reddy MD ? 10/02/2022 ??8:29 AM Endotracheal Tube Placement: ? Patient Location: OR. Intubation Event Date/Time: ??10/02/2022 7:35 AM Procedure: intubation (79863). Procedure Section: ?? Induction: standard IV Patient Position: ??sniffing Mask Ventilation: easy. Blade Type: Rosita Blade Size: 3 Laryngoscopy View: grade 1 (full cords) Intubation Adjuncts: stylet Tube: endotracheal tube Placement: oral Tube type: cuff - inflated Tube Size (MM): 6.5 Depth of Insertion (CM): 22 Measured From: teeth Cuff Inflated With: air Number of Attempts: 1. Placement Verified By: direct visualization, bilateral breath sounds, CO2 monitor and chest auscultation Tube secured with: ??adhesive tape. Dentition unchanged? ??Yes Difficult Airway? ??No. Procedure Start Time: 10/02/2022 7:35 AM. Procedure End Time: 10/02/2022 7:36 AM. Procedure Total Time: 1 ??minutes. Staff Section ? Anesthesia Provider: Maryjane Chapman MD, Performed the procedure Maryjane Chapman MD GENERAL ANESTHESIA O RDERABLES * ARTERIAL LINE PERFORMABLE (10/02/2022 8:27 AM CDT) Narrative Ioana Reddy MD - 10/02/2022 8:27 AM CDT Ioana Reddy MD ? 10/02/2022 ??8:28 AM Arterial Line Placement Procedure Note Patient Location: OR. Procedure: Arterial Line ([id number]). Procedure Section ?? Indications: continuous blood pressure monitoring. Skin Prep: Chloraprep. Orientation: Left. Site: radial. Site Identification: palpation. Sterile Technique: cap and mask. Gauge: 20. Seldinger Technique Used? ??Yes Number of Attempts: 1. Line Secured with: tape and Tegaderm. Procedure Tolerance: performed while patient under general anesthesia. Events: none. Procedure Start Time: 10/02/2022 7:38 AM. Procedure End Time: 10/02/2022 7:40 AM. Procedure Total Time: 2 ??minutes. Local Anesthetic Used? ??No Staff Section ? Anesthesia Provider: Ioana Reddy MD, Performed the procedure ? Provider #1: Maryjane Chapman MD. Maryjane Chapman MD GENERAL ANESTHESIA O RDERABLES * TYPE + SCREEN PANEL (10/02/2022 6:41 AM CDT) Only the most recent of3 resultswithin the time period is included. Antibody Screen NEG 7:31 AM CDT [facility] B[facility]OD [facility] ABO Rh B POS 10/02/2022 7:31 AM CDT [facility] Blood Bank BLOOD SPECIMEN / Unknown Venipuncture / Unknown 10/02/2022 6:41 AM CDT 10/02/2022 6:49 AM CDT Coy Gómez MD LAB - BLOOD BANK ORD ERABLES [facility] [address] [place] [address], [facility] [phone] * CT CUSTOM SHOULDER LT REPLACEMENT (09/25/2022 11:47 AM CDT) Anatomical Region Laterality Modality Upper Extremity Computed Tomogra phy 09/25/2022 2:53 PM CDT Narrative 09/26/2022 10:35 AM CDT PROCEDURE: ??CT CUSTOM SHOULDER LT REPLACEMENT, DATE/TIME OF EXAM: 09/25/2022 11:48 AM, LOCATION ??[facility] INDICATION: M12.812: Rotator cuff arthropathy of left shoulder Z01.818: Pre-op testing ADDITIONAL CLINICAL INFORMATION: Ordering Provider Reason For Exam: ??Pre-op Lt. Shoulder replacement Technologist Note: ??175 Additional: COMPARISON: Left shoulder radiograph dated 04/10/2022 TECHNIQUE: Noncontrast axial images were obtained, and reformats of the left shoulder were performed. ?? FINDINGS/IMPRESSION: No acute fracture. There is mild narrowing of the glenohumeral joint with a small marginal osteophytes, which may be represent degenerative changes. There is also mild osteoarthritis at the acromioclavicular joint. Atrophy of the muscles noted around the shoulder. Report dictated by Wayne Carbajal MD (radiology asst) Zi Mckeon MD have personally reviewed and interpreted this examination/study. > Interpreting Provider: Zi Vee MD on 09/26/2022 10:35 AM Procedure Note Zi Vee MD - 09/26/2022 PROCEDURE: CT CUSTOM SHOULDER LT REPLACEMENT, DATE/TIME OF EXAM: 09/25/2022 11:48 AM, LOCATION [facility] INDICATION: M12.812: Rotator cuff arthropathy of left shoulder Z01.818: Pre-op testing ADDITIONAL CLINICAL INFORMATION: Ordering Provider Reason For Exam: Pre-op Lt. Shoulder replacement Technologist Note: 175 Additional: COMPARISON: Left shoulder radiograph dated 04/10/2022 TECHNIQUE: Noncontrast axial images were obtained, and reformats of the left shoulder were performed. FINDINGS/IMPRESSION: No acute fracture. There is mild narrowing of the glenohumeral joint witha small marginal osteophytes, which may be represent degenerative changes. There is also mild osteoarthritis at the acromioclavicular joint.Atrophy of the muscles noted around the shoulder. Report dictated by Wayne Carbajal MD (radiology asst) Zi Mckeon MD have personally reviewed and interpreted this examination/study. > Interpreting Provider: Zi Vee MD on 0:35 AM Mary Beth Lauren MD CT ORDERABLES * Rad Onc Aria Session Summary (09/21/2022 2:38 PM CDT) Course ID Cervical Spine RAD ONC TREATMENT Course First Treatment Date 09/18/2022 10:59 AM RAD ONC TREATMENT Reference Point ID [id number] RAD ONC TREATMENT Reference Point Dosage Given to Date 24 Gy RAD ONC TREATMENT Reference Point Session Dosage Given 12 Gy RAD ONC TREATMENT Plan ID #CSpine RAD ONC TREATMENT Plan Fractions Treated to Date 2 RAD ONC TREATMENT Plan Total Fractions Prescribed 2 RAD ONC TREATMENT Plan Total Prescribed Dose 2400 cGy RAD ONC TREATMENT 09/21/2022 2:38 PM CDT Provider Unknown RADIATION ONCOLOGY O RDERABLES Performing Organization Address [facility] Co de Phone Number RAD ONC TREATMENT * Rad Onc Aria Session Summary (09/18/2022 11:07 AM CDT) Course ID Cervical Spine RAD ONC TREATMENT Course First Treatment Date 09/18/2022 10:59 AM RAD ONC TREATMENT Reference Point ID [id number] RAD ONC TREATMENT Reference Point Dosage Given to Date 12 Gy RAD ONC TREATMENT Reference Point Session Dosage Given 12 Gy RAD ONC TREATMENT Plan ID #CSpine RAD ONC TREATMENT Plan Fractions Treated to Date 1 RAD ONC TREATMENT Plan Total Fractions Prescribed 2 RAD ONC TREATMENT Plan Total Prescribed Dose 2400 cGy RAD ONC TREATMENT 09/18/2022 11:0 7 AM CDT Provider Unknown RADIATION ONCOLOGY O RDERABLES Performing Organization Address [facility] de Phone Number RAD ONC TREATMENT * PTT [facility] (09/14/2022 3:13 PM CDT) APTT 27.8 23.0 - 38.4 Seconds 09/14/2022 4:22 PM CDT [facility] Comment:Suggested therapeuti c range for full dose I.V. unfractionated heparin therapy for venous thromboembolism is 71 to 109 seconds. Blood BLOOD SPECIMEN / Unknown Lab Venipuncture / Unknown 09/14/2022 3:13 PM CDT 09/14/2022 4:00 PM CDT Coy Gómez MD LAB - COAGULATION OR DERABLES [facility] [address] [place] [address], [facility] [phone] * XR CHEST 2VW (09/14/2022 3:08 PM CDT) Anatomical Region Laterality Modality Chest Radiographic Antonieta ging 09/14/2022 3:09 PM CDT Narrative 09/14/2022 3:54 PM CDT PROCEDURE: ??XR CHEST 2VW, DATE/TIME OF EXAM: ??09/14/2022 3:09 PM, LOCATION [facility] INDICATION: Z01.818: Pre-op testing ADDITIONAL CLINICAL INFORMATION: COMPARISON: No prior study is available for comparison. FINDINGS/IMPRESSION: Calcified granuloma of right upper lung field is seen. There is no focal consolidation, pleural effusion, or pneumothorax. The cardiomediastinal silhouette is normal. The visible bony thorax is intact. > Dictated by Wayne Carbajal MD (radiology asst). Zi Mckeon MD have personally reviewed and interpreted this examination/study. > Interpreting Provider: Zi Vee MD on 09/14/2022 3:54 PM Procedure Note Zi Vee MD - 09/14/2022 PROCEDURE: XR CHEST 2VW, DATE/TIME OF EXAM: 09/14/2022 3:09 PM, LOCATION [facility] INDICATION: Z01.818: Pre-op testing ADDITIONAL CLINICAL INFORMATION: COMPARISON: No prior study is available for comparison. FINDINGS/IMPRESSION: Calcified granuloma of right upper lung field is seen. There is no focal consolidation, pleural effusion, or pneumothorax. The cardiomediastinal silhouette is normal. The visible bony thorax is intact. > Dictated by Wayne Carbajal MD (radiology asst). Zi Mckeon MD have personally reviewed and interpreted this examination/study. > Interpreting Provider: Zi Vee MD on 33:54 PM Coy Gómez MD DIAGNOSTIC IMAGING O RDERABLES * [place] LARYNGOSCOPY,FLEX FIBER,DIAGNOSTIC (08/21/2022 2:38 PM SENIOR SOFTWARE QUALITY ENGINEER) Narrative Neri Delgado MD - 08/21/2022 2:38 PM SENIOR SOFTWARE QUALITY ENGINEER Fabian Flores MD ? 08/22/2022 10:25 AM Procedure Note Endoscopy Type: ??Laryngoscopy without stroboscopy 60506 Endoscope: Flexible 4mm Scope Anesthesia: Lidocaine 2% and Neosynephrine 1/2% (nasal) Procedure Details: The patient was sitting upright in a chair with the head in a slightly anterior sniffing position. The topical anesthesia was administered and then adequate time was allowed ??for an anesthetic effect. The endoscope was passed thru the nasal cavity. The tip of the endoscope was positioned in the oropharynx which allowed a complete view of the base of tongue, vallecula, pyriform recesses, epiglottis, bilateral true and false vocal folds, the interarytenoid and post cricoid region, and the immediate subglottis. Findings: complete right vocal cord paralysis with atrophy, full mobility of the left vocal cord. No other concerning lesions or abnormalities. Immediate subglottis widely patent Condition: Stable. ??Patient tolerated procedure well. Complications: None Dr. Delgado was present for the entirety of the procedure. Neri Delgado MD PROCEDURE/MINOR SURG ICAL ORDERABLES * NM TUMOR LOCAL SPECT CT (08/19/2022 3:24 PM SENIOR SOFTWARE QUALITY ENGINEER) Anatomical Region Laterality Modality Nuclear Medicine 08/19/2022 3:55 PM SENIOR SOFTWARE QUALITY ENGINEER Impressions 08/19/2022 4:38 PM SENIOR SOFTWARE QUALITY ENGINEER Impression: Focal uptake in anteriorly in the left aspect of the mid cervical spine, suggestive of metastatic disease. Further evaluation with MRI cervical spine is recommended to better evaluate the site of the recurrence and the proximity to the spinal cord. Results discussed with Dr. Bustamante by Dr. Sy on 08/19/2022 at 3:35 PM. > Dictated by Donald Mayer MD (Artificial Plastic Eye Maker) 08/19/2022 4:15 PM Tiesha Mckeon DO have personally reviewed and interpreted this examination/study. > Interpreting Provider: Tiesha Sy DO on 08/19/2022 4:38 PM Narrative 08/19/2022 4:38 PM SENIOR SOFTWARE QUALITY ENGINEER PROCEDURE: ??NM THYROID WHOLE BODY SCAN, NM TUMOR LOCAL SPECT CT, DATE/TIME OF EXAM: ??08/19/2022 3:24 PM, LOCATION ??[facility] INDICATION: E89.0: Postoperative hypothyroidism C73: Thyroid cancer (CMS/HCC) E83.51: Hypocalcemia E20.8: Other hypoparathyroidism (CMS/HCC) ADDITIONAL CLINICAL INFORMATION: Ordering Provider Reason For Exam: ??POST TREATMENT WHOLE BODY SCAN AFTER HORMONE WITHDRAWAL COMPARISON: CT soft tissue neck with contrast 01/28/2022, CT/PET 12/25/2021 Procedure: I-123 whole body scan for thyroid cancer Agent: 4.0 mCi of I-123 per oral, images were obtained after 24 hours. History: 62-year-old female patient with history of papillary thyroid cancer status post thyroidectomy on 08/19/2020 and radioablation with I-131 157.6 mCi on 03/19/21. Currently with biochemical recurrence Patient's BMI is 28.35 kg/m. Findings: Anterior and posterior whole body images show increased tracer uptake in the left aspect of the neck posteriorly. There is no residual tracer activity in the thyroid beds. Physiologic tracer activity is seen in the stomach, nasopharynx, bowel and bladder. SPECT/CT images demonstrate a focus of increased uptake anteriorly in the left aspect of the cervical spine in the region of C4 near the left nerve root. This area is is asymmetrically enlarged on the left as compared to the right. A definite lytic lesion is not seen. Procedure Note Tiesha Sy, DO - 08/19/2022 PROCEDURE: NM THYROID WHOLE BODY SCAN, NM TUMOR LOCAL SPECT CT,DATE/TIME OF EXAM: 08/19/2022 3:24 PM, LOCATION [facility] INDICATION: E89.0: Postoperative hypothyroidism C73: Thyroid cancer (CMS/HCC) E83.51: Hypocalcemia E20.8: Other hypoparathyroidism (CMS/HCC) ADDITIONAL CLINICAL INFORMATION: Ordering Provider Reason For Exam: POST TREATMENT WHOLE BODY SCAN AFTER HORMONE WITHDRAWAL COMPARISON: CT soft tissue neck with contrast 01/28/2022, CT/PET 12/25/2021 Procedure: I-123 whole body scan for thyroid cancer Agent: 4.0 mCi of I-123 per oral, images were obtained after 24 hours. History: 62-year-old female patient with history of papillary thyroid cancer status post thyroidectomy on 08/19/2020 and radioablation withI-131 157.6 mCi on 03/19/21. Currently with biochemical recurrence Patient'sBMI is 28.35 kg/m. Findings: Anterior and posterior whole body images show increased tracer uptake in the left aspect of the neck posteriorly. There is no residual tracer activity in the thyroid beds. Physiologic tracer activity is seen in the stomach, nasopharynx, boweland bladder. SPECT/CT images demonstrate a focus of increased uptake anteriorly inthe left aspect of the cervical spine in the region of C4 near the leftnerve root. This area is is asymmetrically enlarged on the left as compared to the right. A definite lytic lesion is not seen. Impression: Focal uptake in anteriorly in the left aspect of the mid cervical spine, suggestive of metastatic disease. Further evaluation with MRI cervical spine is recommended to better evaluate the site of the recurrence andthe proximity to the spinal cord. Results discussed with Dr. Bustamante by Dr. Sy on 08/19/2022 at3:35 PM. > Dictated by Donald Mayer MD (Artificial Plastic Eye Maker) 08/19/2022 4:15 PM ITiesha DO have personally reviewed and interpreted this examination/study. > Interpreting Provider: Tiesha Sy DO on 08/19/2022 4:38 PM Yosi Bustamante MD NM ORDERABLES * NM THYROID WHOLE BODY SCAN (08/19/2022 3:24 PM SENIOR SOFTWARE QUALITY ENGINEER) Only the most recent of2 resultswithin the time period is included. Anatomical Region Laterality Modality Chest Nuclear Medicine 08/19/2022 3:55 PM SENIOR SOFTWARE QUALITY ENGINEER Impressions 08/19/2022 4:38 PM SENIOR SOFTWARE QUALITY ENGINEER Impression: Focal uptake in anteriorly in the left aspect of the mid cervical spine, suggestive of metastatic disease. Further evaluation with MRI cervical spine is recommended to better evaluate the site of the recurrence and the proximity to the spinal cord. Results discussed with Dr. Bustamante by Dr. Sy on 08/19/2022 at 3:35 PM. > Dictated by Donald Mayer MD (Artificial Plastic Eye Maker) 08/19/2022 4:15 PM Tiesha Mckeon DO have personally reviewed and interpreted this examination/study. > Interpreting Provider: Tiesha Sy DO on 08/19/2022 4:38 PM Narrative 08/19/2022 4:38 PM SENIOR SOFTWARE QUALITY ENGINEER PROCEDURE: ??NM THYROID WHOLE BODY SCAN, NM TUMOR LOCAL SPECT CT, DATE/TIME OF EXAM: ??08/19/2022 3:24 PM, LOCATION ??[facility] INDICATION: E89.0: Postoperative hypothyroidism C73: Thyroid cancer (CMS/HCC) E83.51: Hypocalcemia E20.8: Other hypoparathyroidism (CMS/HCC) ADDITIONAL CLINICAL INFORMATION: Ordering Provider Reason For Exam: ??POST TREATMENT WHOLE BODY SCAN AFTER HORMONE WITHDRAWAL COMPARISON: CT soft tissue neck with contrast 01/28/2022, CT/PET 12/25/2021 Procedure: I-123 whole body scan for thyroid cancer Agent: 4.0 mCi of I-123 per oral, images were obtained after 24 hours. History: 62-year-old female patient with history of papillary thyroid cancer status post thyroidectomy on 08/19/2020 and radioablation with I-131 157.6 mCi on 03/19/21. Currently with biochemical recurrence Patient's BMI is 28.35 kg/m. Findings: Anterior and posterior whole body images show increased tracer uptake in the left aspect of the neck posteriorly. There is no residual tracer activity in the thyroid beds. Physiologic tracer activity is seen in the stomach, nasopharynx, bowel and bladder. SPECT/CT images demonstrate a focus of increased uptake anteriorly in the left aspect of the cervical spine in the region of C4 near the left nerve root. This area is is asymmetrically enlarged on the left as compared to the right. A definite lytic lesion is not seen. Procedure Note Tiesha Sy DO - 08/19/2022 PROCEDURE: NM THYROID WHOLE BODY SCAN, NM TUMOR LOCAL SPECT CT,DATE/TIME OF EXAM: 08/19/2022 3:24 PM, LOCATION [facility] INDICATION: E89.0: Postoperative hypothyroidism C73: Thyroid cancer (CMS/HCC) E83.51: Hypocalcemia E20.8: Other hypoparathyroidism (CMS/HCC) ADDITIONAL CLINICAL INFORMATION: Ordering Provider Reason For Exam: POST TREATMENT WHOLE BODY SCAN AFTER HORMONE WITHDRAWAL COMPARISON: CT soft tissue neck with contrast 01/28/2022, CT/PET 12/25/2021 Procedure: I-123 whole body scan for thyroid cancer Agent: 4.0 mCi of I-123 per oral, images were obtained after 24 hours. History: 62-year-old female patient with history of papillary thyroid cancer status post thyroidectomy on 08/19/2020 and radioablation withI-131 157.6 mCi on 03/19/21. Currently with biochemical recurrence Patient'sBMI is 28.35 kg/m. Findings: Anterior and posterior whole body images show increased tracer uptake in the left aspect of the neck posteriorly. There is no residual tracer activity in the thyroid beds. Physiologic tracer activity is seen in the stomach, nasopharynx, boweland bladder. SPECT/CT images demonstrate a focus of increased uptake anteriorly inthe left aspect of the cervical spine in the region of C4 near the leftnerve root. This area is is asymmetrically enlarged on the left as compared to the right. A definite lytic lesion is not seen. Impression: Focal uptake in anteriorly in the left aspect of the mid cervical spine, suggestive of metastatic disease. Further evaluation with MRI cervical spine is recommended to better evaluate the site of the recurrence andthe proximity to the spinal cord. Results discussed with Dr. Bustamante by Dr. Sy on 08/19/2022 at3:35 PM. > Dictated by Donald Mayer MD (Artificial Plastic Eye Maker) 08/19/2022 4:15 PM ITiesha DO have personally reviewed and interpreted this examination/study. > Interpreting Provider: Tiesha Sy DO on 08/19/2022 4:38 PM Yosi Bustamante MD NM ORDERABLES * DRUG SCREEN TOX URINE PANEL (IN HOUSE) (08/14/2022 4:09 PM SENIOR SOFTWARE QUALITY ENGINEER) Only the most recent of2 resultswithin the time period is included. Amphetamines Screen Urine Negative Negative: < 1000 ng/mL 08/14/2022 5:03 PM SENIOR SOFTWARE QUALITY ENGINEER [facility] Barbiturates Screen Urine Negative Negative: < 200 ng/mL 08/14/2022 5:03 PM SENIOR SOFTWARE QUALITY ENGINEER [facility] Benzodiazepine Screen Urine Negative Negative: < 200 ng/mL 08/14/2022 5:03 PM [facility] Opiates Urine Negative Negative: < 300 ng/mL 08/14/2022 5:03 PM [facility] Cocaine Metabolites Urine Negative Negative: < 300 ng/mL 08/14/2022 5:03 PM [facility] Phencyclidine Screen Urine Negative Negative: < 25 ng/ml 08/14/2022 5:03 PM [facility] Cannabinoids Screen Urine Negative Negative: <50 ng/mL 08/14/2022 5:03 PM [facility] Methadone Screen Urine Negative Negative: < 300 ng/mL 08/14/2022 5:03 PM [facility] Fentanyl Screen Urine Negative Negative: <1.5 ng/mL 08/14/2022 5:03 PM [facility] Urine URINE / Unknown Collection / Unknown 08/14/2022 4:09 PM [facility] 08/14/2022 4:25 PM [facility] - 08/14/2022 5:03 PM [facility] The Urine Toxicology Screening Panel does not screen for Propoxyphene, Meprobamate, Carisoprodol, Trazodone, [id number] medications and/or volatiles (Acetone, Isopropanol, Methanol or Ethylene Glycol). Ethanol, Salicylate, Acetaminophen, Tricyclic Antidepressants and several therapeutic drugs may be individually assayed in serum or plasma specimen. Toxicology testing by the [facility] is an aid to medical diagnosis and treatment of patients. No documented chain of custody was maintained. Results are intended to be used for clinical purposes only. ? Adriana Sunq DO LAB - URINE CHEMISTR Y ORDERABLES Performing Organization Address [facility]/ZIP Co de Phone Number [address] [address], [place] [phone] * HIV-1 HIV-2 ANTIBODY + HIV P24 AG PANEL (New on 11/18) (08/14/2022 3:21 PM SENIOR SOFTWARE QUALITY ENGINEER) HIV Antigen/Antibod y 1 & 2 Non-reacti ve Non-react oswaldo 08/14/2022 4:18 PM SENIOR SOFTWARE QUALITY ENGINEER [facility] Comment:No Laboratory eviden ce of HIV infection. Blood BLOOD SPECIMEN / Unknown Lab Venipuncture / Unknown 08/14/2022 3:21 PM SENIOR SOFTWARE QUALITY ENGINEER 08/14/2022 3:33 PM SENIOR SOFTWARE QUALITY ENGINEER Adrianarainer Wagonerq DO LAB - CHEMISTRY ORDE RABHORTENCIA Performing Organization Address [facility] Co de Phone Number [address] [address], [place] [phone] * [place] US SOFT TISS HEAD&NCK R-T IMG (07/02/2022 11:41 AM SENIOR SOFTWARE QUALITY ENGINEER) Narrative Yosi Bustamante MD - 07/02/2022 11:41 AM SENIOR SOFTWARE QUALITY ENGINEER Yosi Bustamante MD ? 07/02/2022 11:47 AM Ultrasound ??Of ??Thyroid Ultrasound of the Thyroid PHYSICIAN ??Yosi Bustamante MD FELLOW NONE Test Date: 07/02/2022 Test Indication: Patient Active Problem List: ?? Psychophysiologic insomnia ?? Chronic fatigue ?? Snoring ?? Obsessive-compulsive disorder ?? Headache ?? Primary osteoarthritis of left hip ?? Nicotine dependence ?? High cholesterol ?? Other psoriasis ?? Complete paralysis of right vocal cord ?? Hoarseness ?? Tracheal mass ?? Lymphadenopathy of head and neck region ?? Cellulitis ?? Postoperative hypothyroidism ?? Thyroid cancer (CMS/HCC) ?? Hypocalcemia ?? Other hypoparathyroidism (CMS/HCC) ?? Neoplasm of uncertain behavior of skin ?? Other seborrheic keratosis ?? Depression, unspecified ?? Need for influenza vaccination ?? Left shoulder pain ?? Urinary incontinence ?? Chronic pain after cancer treatment ?? Referring Physician: Dr. Joseph Manzanares MD Procedure Preformed: Ultrasound Only Nodule Size: THYROID GLAND SURGICALLY ABSENT LYMPH NODES IDENTIFIED RIGHT NECK LEVEL ??1B 0.78 X 0.44 CM WITH HILAR LINE LEFT NECK LEVEL ??IIA ??0.68 X 0.36 CM LEVEL ??III 0.57 X 0.36 CM Echogenicity: NORMAL NECK Vascularity: NORMAL NECK Number of Nodules Present: SEE ABOVE Calcifications: NONE Borders: N/A ASSESSMENT BENIGN APPEARING LYMPH NODES EUTHYROID THYROID CANCER , BIOCHEMICAL INCOMPLETE RESPONSE TO THERAPY RISING TG OVER TIME Recommendations: PLAN THYROID/NECK ULTRASOUND TODAY Instructions for taking levothyroxine Brand name is preferred OR SAME SOURCE Take thyroid pill all by itself Take thyroid pill one hour before food or 2 to 3 hours after food Heat, humidity, and direct sunlight will cause a loss of potency Never store thyroid pill in the bathroom RETURN IN October REPEAT ULTRASOUND MID 2022 THYROID MEDICATION WITHDRAWAL FOR NUC MED SCAN AND THERAPY SEE BELOW LAB TODAY PLAN FOR RADIOACTIVE IODINE TREATMENT AFTER THYROID HORMONE WITHDRAWAL Wednesday ?07/04/2022 ?LAST DOSE OF LEVOTHYROXINE Wednesday ?07/05/2022 ?START CYTOMEL (LIOTHYRONINE OR T3) 25 ??MCG TWICE A DAY ? Wednesday ?07/25/2022 ?LAST DOSES OF CYTOMEL FROM Wednesday07/26/2022 TO 08/22/2022 NO THYROID MEDICATIONS FROM Wednesday08/05/2022 TO 08/23/2022 LOW IODINE DIET LAB ? 2022 ?TSH AND TG ?? LAB ? 08/07/2022 ?TSH AND TG LAB ? 08/14/2022 ?TSH AND TG LAB ? 08/21/2022 ?TSH AND TG LAB ? 10/16/2022 ?TSH AND TG 08/17/2022 ?NUC MED FOR TRACER DOSE OF RADIOACTIVE IODINE TO DO WHOLE BODY SCAN 08/19/2022 ?[facility]C MED FOR WHOLE BODY SCAN 08/19/2022 ?[facility]C MED FOR TREATMENT DOSE OF RADIOACTIVE IODINE (THIS DOSE WILL REQUIRE ISOLATION , USUALLY AT HOME 08/25/2022 ?[facility] MED FOR POST TREATMENT WHOLE BODY SCAN 08/23/2022 ?RESTART LEVOTHYROXINE AND STOP LOW IODINE DIET LOW-IODINE DIET GUIDELINES - SUMMARY ThyCa: ??Thyroid Cancer Survivors? [employer] For details, and our free downloadable Low-Iodine Cookbook, visit www.thyca.org [place] This is a Low-Iodine Diet, NOT a No-Iodine Diet or an Iodine-Free Diet. The diet is for a short time period, usually for the 2 weeks (14 days) before a radioactive iodine scan or radioactive iodine treatment. Avoid foods high in iodine (over 20mcg per serving). ??Eat any foods low in iodine (up to 5mcg per serving). ??Limit the quantity of foods moderate in iodine (5 to 20 mcg per serving). Read the ingredient lists on the labels of packaged foods. ?? Check with your physician about medications you are taking. Not Allowed - Avoid These Foods and Ingredients ?? Iodized salt, sea salt, and any foods containing iodized salt and sea salt. ?? Seafood and sea products (fish, shellfish, seaweed, seaweed tablets, carrageenan, agar-agar, alginate, vinicio and other sea-based foods or ingredients). ?? Daily products of any kind (milk, cheese, yogurt, butter, ice cream). ?? Egg yolks or whole eggs or foods containing whole eggs. ? Bakery products containing iodine/iodate dough conditioners or high-iodine ingredients. ??Low-iodine homemade and commercial baked goods are fine. ?? Red Dye #3. ?? Most chocolate (due to milk content). ??[place] powder and some dark chocolates are allowed. ?? Some molasses (if sulfured, such as blackstrap molasses). ?? Unsulfured molasses, which is more common, is okay. ??Sulfur is a term used on labels and does not relate to iodine. ?? Soybeans and soybean products such as tofu, TVP, soy milk, soysauce. ??The NIH diet says to avoid some other beans: red kidney beans, cano beans, navy beans, crain beans, and cowpeas. ?? On some diets, rhubarb and potato skins (inside of the potato is fine). ?? Iodine-containing vitamins and food supplements. ?? If you? re taking a medication containing iodine, check with your physician. Allowed Foods and Ingredients ?? Fruits except rhubarb and maraschino cherries (with Red Dye #3). ?? Vegetables: preferably raw or frozen without salt, except soybeans and (according to NIH diet) a few other beans. ?? Unsalted nuts and unsalted nut butters. ?? Whites of eggs. ?? Fresh meats up to 6 ounces a day. ?? Grain and cereal products up to 4 servings per day, provided they have no high-iodine ingredients. ?? Pasta, provided it has no high-iodine ingredients. ?? Sugar, jelly, jam, honey, maple syrup. ?? Black pepper, fresh or dried herbs and spices. ?? Oils, All vegetable oils, including soy oil. ?? Sodas (except with Red Dye #3), cola, diet cola, non-instant coffee, non-instant tea, beer, wine, other alcoholic beverages, lemonade, fruit juices. ?? Read the ingredient list on all packaged foods. Easy Snacks for Home, Work, or Travel ?? Fresh fruit or juice ?? Dried fruits such as raisins ?? Fresh raw vegetables ?? Applesauce ?? Popcorn ?? Unsalted nuts ?? Sodas other than those with Red Dye #3 ?? Fruit juice ?? Unsalted peanut butter or other nut butters (great with apple slices, carrot sticks, crackers, and rice cakes) ?? Unsalted Matzo crackers and other unsalted crackers ?? Homemade low-iodine bread or muffins Easy Quick Meals ?? Oatmeal toppings-cinnamon, honey applesauce, maple syrup and walnuts, fruit ?? Grilled fresh meat, vegetables, fresh fruit or baked apple ?? Salad topped with grilled chicken or beef, oil and vinegar dressing [place] with Matzo crackers, plain peanut butter, jelly Yosi Bustamante MD Division of Endocrinology Yosi Bustamante MD PROCEDURE/MINOR MADELINE GICAL ORDERABLES * XR SHOULDER LEFT 2VW OR MORE (04/10/2022 1:55 PM CDT) Only the most recent of2 resultswithin the time period is included. Anatomical Region Laterality Modality Upper Extremity Radiographic Antonieta ging 04/10/2022 2:27 PM CDT Impressions 04/10/2022 2:29 PM CDT IMPRESSION: No acute osseous abnormality. > Interpreting Provider: Nico Meehan MD on 04/10/2022 2:29 PM Narrative 04/10/2022 2:29 PM CDT PROCEDURE: ??XR SHOULDER LEFT 2VW OR MORE, DATE/TIME OF EXAM: ??04/10/2022 1:55 PM, LOCATION ??[facility] INDICATION: M25.512: Left shoulder pain, unspecified chronicity ADDITIONAL CLINICAL INFORMATION: Ordering Provider Reason For Exam: ??pain Technologist Note: Additional: COMPARISON: 02/27/2022 FINDINGS: No fracture or dislocation. Minimal degenerative changes are noted with small osteophytes. A bone island is noted in the glenoid. Clips in the neck. Procedure Note Nico Meehan MD - 04/10/2022 PROCEDURE: XR SHOULDER LEFT 2VW OR MORE, DATE/TIME OF EXAM: 04/10/2022 1:55 PM, LOCATION [facility] INDICATION: M25.512: Left shoulder pain, unspecified chronicity ADDITIONAL CLINICAL INFORMATION: Ordering Provider Reason For Exam: pain Technologist Note: Additional: COMPARISON: 02/27/2022 FINDINGS: No fracture or dislocation. Minimal degenerative changes are noted with small osteophytes. A bone island is noted in the glenoid. Clips in the neck. IMPRESSION: No acute osseous abnormality. > Interpreting Provider: Nico Meehan MD on 04/10/2022 2:29 PM Mary Beth Lauren MD DIAGNOSTIC IMAGING O RDERABLES * MRI SHOULDER LEFT WO CONTRAST (03/29/2022 4:39 PM CDT) Anatomical Region Laterality Modality Upper Extremity Magnetic Resonan ce 03/30/2022 7:41 AM CDT Impressions 03/30/2022 7:51 AM CDT Impression: 1. Rotator cuff tear including a small full-thickness tear in the anterior aspect of the supraspinatus tendon. Additional partial thickness tear of the supraspinatus and anterior-superior aspect of the infraspinatus. Moderate supraspinatus atrophy and mild infraspinatus atrophy. 2. Thinning of the subscapularis tendon consistent with high-grade tear. Severe atrophy of the muscle. 3. Mild acromioclavicular osteoarthritis. 4. Poor visualization of the intra-articular portion of the long head of the biceps tendon. The tendon is visible at the level of the bicipital groove. > Interpreting Provider: Nico Meehan MD on 03/30/2022 7:51 AM Narrative 03/30/2022 7:51 AM CDT PROCEDURE: ??MRI SHOULDER LEFT WO CONTRAST, DATE/TIME OF EXAM: ??03/29/2022 4:40 PM, LOCATION ??[facility] INDICATION: M75.102: Nontraumatic tear of left rotator cuff, unspecified tear extent ADDITIONAL CLINICAL INFORMATION: Ordering Provider Reason For Exam: Technologist Note: Additional: COMPARISON: Left shoulder radiographs dated 02/27/2022 TECHNIQUE: MRI of the left shoulder was performed without contrast. Comparison: ??None. Findings: The acromioclavicular joint is intact. ??There is mild acromioclavicular joint osteoarthritis. ?? Glenohumeral alignment is normal. The articular cartilage is intact. ??No effusion is present. ??No glenoid labral tear is present. ?? The subscapularis tendon is severely thinned consistent with high-grade partial tear. There is severe atrophy of the subscapularis muscle. The supraspinatus tendon is thinned consistent with high-grade partial thickness tear. There is an area of full-thickness tear in the anterior aspect of the tendon measuring approximately 6 mm AP (series 9 image 7) with retraction of fibers medially by approximately 1.3 cm (series 6 image 17). There is an area of partial thickness tear at the articular surface of the supraspinatus-infraspinatus junction (series 9 image 7). The infraspinatus tendon is otherwise intact. The teres minor tendon is intact. There is moderate atrophy of the supraspinatus muscle. There is mild atrophy of the infraspinatus. There is no teres minor muscle atrophy. The intra-articular portion of the long head of the biceps tendon is difficult to visualize. The tendon is visible within the bicipital groove where it is normally positioned. Several cysts are seen in the humeral head in the region of the rotator cuff insertion. Bone marrow signal is otherwise normal. Procedure Note Nico Meehan MD - 03/30/2022 PROCEDURE: MRI SHOULDER LEFT WO CONTRAST, DATE/TIME OF EXAM: 03/29/2022 4:40 PM, LOCATION [facility] INDICATION: M75.102: Nontraumatic tear of left rotator cuff, unspecified tear extent ADDITIONAL CLINICAL INFORMATION: Ordering Provider Reason For Exam: Technologist Note: Additional: COMPARISON: Left shoulder radiographs dated 02/27/2022 TECHNIQUE: MRI of the left shoulder was performed without contrast. Comparison: None. Findings: The acromioclavicular joint is intact. There is mild acromioclavicular joint osteoarthritis. Glenohumeral alignment is normal. The articular cartilage is intact. No effusion is present. No glenoid labral tear is present. The subscapularis tendon is severely thinned consistent with high-grade partial tear. There is severe atrophy of the subscapularis muscle. The supraspinatus tendon is thinned consistent with high-grade partial thickness tear. There is an area of full-thickness tear in the anterior aspect of the tendon measuring approximately 6 mm AP (series 9 image 7) with retraction of fibers medially by approximately 1.3 cm (series 6image 17). There is an area of partial thickness tear at the articular surfaceof the supraspinatus-infraspinatus junction (series 9 image 7). The infraspinatus tendon is otherwise intact. The teres minor tendon isintact. There is moderate atrophy of the supraspinatus muscle. There is mild atrophy of the infraspinatus. There is no teres minor muscle atrophy. The intra-articular portion of the long head of the biceps tendon is difficult to visualize. The tendon is visible within the bicipitalgroove where it is normally positioned. Several cysts are seen in the humeral head in the region of the rotator cuff insertion. Bone marrow signal is otherwise normal. Impression: 1. Rotator cuff tear including a small full-thickness tear in theanterior aspect of the supraspinatus tendon. Additional partial thickness tear of the supraspinatus and anterior-superior aspect of the infraspinatus. Moderate supraspinatus atrophy and mild infraspinatus atrophy. 2. Thinning of the subscapularis tendon consistent with high-grade tear. Severe atrophy of the muscle. 3. Mild acromioclavicular osteoarthritis. 4. Poor visualization of the intra-articular portion of the long head of the biceps tendon. The tendon is visible at the level of the bicipital groove. > Interpreting Provider: Nico Meehan MD on 03/30/2022 7:51 AM Kami Willingham PA-C MR ORDERABLES * WA DRAIN/INJECT LARGE JOINT/BURSA (02/27/2022 2:13 PM CDT) Narrative Kami Willingham PA-C - 02/27/2022 2:13 PM CDT Kami Willingham PA-C ? 02/27/2022 ??3:16 PM Injection shoulder The patient was offered a cortisone injection into the left shoulder. After discussing the risks and benefits of the procedure, the patient elected to proceed. After sterile preparation, the left ??shoulder was injected subacromial with a combination in One syringe: ??4mL ropivacaine or lidocaine ??(5mg/mL) + 2ml Kenalog (40mg/mL). The patient tolerated the procedure well without complication. ?? There was zero blood loss. Kami Willingham PA-C PROCEDURE/MINOR SURG ICAL ORDERABLES * ETT LINE PERFORMABLE (02/05/2022 10:47 AM CDT) Narrative Kendra Smith Anes Asst - 02/05/2022 10:47 AM CDT Kendra Smith Anes Asst ? 02/05/2022 10:51 AM Endotracheal Tube Placement: ? Patient Location: OR. Intubation Event Date/Time: ??02/05/2022 10:39 AM Procedure: intubation (60119). Procedure Section: ?? Sedation: under general anesthesia. Indications for Airway Management: ??anesthesia Procedure pretreatments used? ??No Induction: standard IV Patient Position: ??sniffing Mask Ventilation: easy. Blade Type: Young Blade Size: 2 Laryngoscopy View: grade 1 (full cords) Intubation Adjuncts: stylet and cricoid pressure Tube: endotracheal tube Placement: oral Tube type: cuff - inflated Tube Size (MM): 7 Depth of Insertion (CM): 21 Measured From: lips Cuff Inflated With: air Number of Attempts: 1. Placement Verified By: direct visualization, bilateral breath sounds, chest auscultation and CO2 monitor Tube secured with: ??adhesive tape. Dentition unchanged? ??Yes Difficult Airway? ??No. Procedure Start Time: 02/05/2022 10:39 AM. Staff Section ? Anesthesia Provider: Kendra Smith Anes Asst, Performed the procedure Rachel Aviles MD GENERAL ANESTHESIA ORDERABLES * WA LARYNGOSCOPY,FLEX FIBER,DIAGNOSTIC (01/28/2022 12:24 PM CDT) Narrative Neri Delgado MD - 01/28/2022 12:24 PM CDT Neri Delgado MD ? 01/28/2022 12:26 PM Procedure Note Anesthesia: Lidocaine 2% and Stone-Synephrine 1/2% Endoscopy Type: ??Flexible Jxctt-Kcbpxzjbfwfvqm-Mckfkqevxcff Procedure Details: ??Informed consent was obtained. ??The patient was placed in the sitting position. ??After topical anesthesia and decongestion, the 4 mm laryngoscope was passed. ??The nasal cavities, nasopharynx, oropharynx, hypopharynx, and larynx were all examined. ??Vocal cords were examined during respiration and phonation. Findings: -Right vocal cord is fixed, foreshortened, and slightly bowed. ?? However the left vocal cord is able to fully compensate and create good glottic closure. ??Disposition: The patient tolerated procedure well. Complications: None Neri Delgado MD PROCEDURE/MINOR SURG ICAL ORDERABLES * URINALYSIS - POINT OF CARE (AMB) [facility] (10/29/2021) Specific [place] UA 1.015 [facility] pH UA 6.0 [facility] WBC UA 3+ 500 [place]/uL [facility] Nitrite UA - NEG [facility] Protein UA - NEG [facility] Glucose UA - NEG [facility] Ketones UA POCT - NEG [facility] Urobilinogen UA - 0.2 mg/dL [facility] Bilirubin UA POCT -NEG [facility] Blood Urine POCT +- 10Ery/uL [facility] Urine URINE / Unknown 10/29/2021 Andria Anaya DO LAB - POINT OF CARE ORDERABLES [facility] [address] [address] * WA US SOFT TISS HEAD&NCK R-T IMG (10/08/2021 3:06 PM CDT) Narrative Yosi Bustamante MD - 10/08/2021 3:06 PM CDT Yosi Bustamante MD ? 10/08/2021 ??4:00 PM Ultrasound ??Of ??Thyroid Ultrasound of the Thyroid PHYSICIAN ??Yosi Bustamante MD FELLOW NONE Test Date: 10/08/2021 Test Indication: Patient Active Problem List: ?? Psychophysiologic insomnia ?? Chronic fatigue ?? Snoring ?? Obsessive-compulsive disorder ?? Headache ?? Primary osteoarthritis of left hip ?? Nicotine dependence ?? High cholesterol ?? Other psoriasis ?? Complete paralysis of right vocal cord ?? Hoarseness ?? Tracheal mass ?? Lymphadenopathy of head and neck region ?? Cellulitis ?? Postoperative hypothyroidism ?? Thyroid cancer ?? Hypocalcemia ?? Other hypoparathyroidism ?? Neoplasm of uncertain behavior of skin ?? Other seborrheic keratosis ?? Depression, unspecified ?? Referring Physician: Dr. Taniya Grimes MD Procedure Preformed: Ultrasound Only COMPARED TO: ?? NONE Nodule Size: THYROID GLAND SURGICALLY ABSENT LYMPH NODES IDENTIFIED RIGHT NECK LEVEL ??III 0.32 X 0.27 CM WITH HILAR LINE LEFT NECK LEVEL ??IIA ??0.52 X 0.37 CM WITH HILAR LINE, SECOND IMAGE 0.61 X 0.34 CM WITH HILAR LINE Echogenicity: NORMAL NECK Vascularity: NORMAL NECK Number of Nodules Present: TWO Calcifications: NONE Borders: N/A ASSESSMENT BENIGN APPEARING LYMPH NODES EUTHYROID CLINICALLY Recommendations: PLAN LAB SOON STANDING ORDER FOR LAB EVERY THREE MONTHS WILL NEED STIMULATED TG AND NUC MED WHOLE BODY SCAN LATER THIS YEAR AFTER RECOVERY FROM HIP SURGERY CONTINUE CURRENT DOSE OF THYROID MEDICATION NEW PRESCRIPTION TO PHARMACY Instructions for taking levothyroxine Brand name is preferred Take thyroid pill all by itself Take thyroid pill one hour before food or 2 to 3 hours after food Heat, humidity, and direct sunlight will cause a loss of potency Never store thyroid pill in the bathroom THYROID ULTRASOUND TODAY RETURN IN SIX MONTHS QUIT SMOKING REFER TO ENT FOR CHOKING SENSATION WITH LIQUIDS CONTACT ORTHO SURGERY ABOUT HIP SURGERY SINCE IT HAS BEEN SIX MONTHS SINCE RADIOACTIVE IODINE TREATMENT Yosi Bustamante MD Division of Endocrinology Yosi Bustamante MD PROCEDURE/MINOR MADELINE GICAL ORDERABLES * PTH INTACT ([facility]) (03/21/2021 10:47 AM CDT) Only the most recent of14 resultswithin the time period is included. PTH Intact 42.1 8.0 - 77.0 pg/mL 03/21/2021 11:55 AM CDT [facility] Blood BLOOD SPECIMEN / Unknown Lab Venipuncture / Unknown 03/21/2021 10:47 AM CDT 03/21/2021 11:25 AM CDT Yosi Bustamante MD LAB - CHEMISTRY ORD ERABLES [facility] [address] [place] [address], [place] [phone] * NM THYROID THERAPY (03/19/2021 2:49 PM CDT) Anatomical Region Laterality Modality Nuclear Medicine 03/19/2021 2:41 PM CDT Impressions 03/19/2021 6:06 PM CDT IMPRESSION: Successful oral administration of 157.6 mCi Iodine-131 for the treatment of metastatic papillary thyroid cancer. This report was approved ??by Dru Siu ?? on 03/19/2021 5:28 PM . I, Dr. DISHA MORA M.D. have personally reviewed and interpreted this examination/study. This report was electronically signed by DISHA MORA M.D. ??on 03/19/2021 6:06 PM . Narrative 03/19/2021 6:06 PM CDT PROCEDURE: I-131 thyroid therapy for metastatic papillary thyroid cancer. HISTORY: 60-year-old female with thyroid cancer with metastases to cervical lymph nodes based on excisional biopsy from 08/19/2019. Thyroglobulin on 02/14/2021 increased to 1.9 ng/mL from 0.9 ng/mL on 11/11/2020. The most recent thyroglobulin value is 1.7 ng/mL. Patient's BMI 26.41 kg/m2. COMPARISON: No prior similar study is available for comparison at the time of dictation. TECHNIQUE: The patient's medical/surgical and clinical information were assessed and therapy dose was determined to be 157.6 mCi. The risks and benefits of I-131 therapy, and alternatives, were explained to the patient. Proper instructions were given to reduce radiation risks to self by stimulating salivation to reduce exposure to the salivary glands, maintaining hydration and frequently urinating, and preventing constipation. Patient was given instructions as far as maintaining adequate distance and contact for an appropriate amount of time from other persons. Written informed consent was obtained. Procedure Note Disha Mora MD - 03/19/2021 PROCEDURE: I-131 thyroid therapy for metastatic papillary thyroidcancer. HISTORY: 60-year-old female with thyroid cancer with metastases to cervical lymph nodes based on excisional biopsy from 08/19/2019. Thyroglobulin on 02/14/2021 increased to 1.9 ng/mL from 0.9 ng/mL on 11/11/2020. The most recent thyroglobulin value is 1.7 ng/mL. Patient'sBMI 26.41 kg/m2. COMPARISON: No prior similar study is available for comparison at thetime of dictation. TECHNIQUE: The patient's medical/surgical and clinical information were assessed and therapy dose was determined to be 157.6 mCi. The risks and benefits of I-131 therapy, and alternatives, were explained to the patient. Proper instructions were given to reduce radiation risks toself by stimulating salivation to reduce exposure to the salivary glands, maintaining hydration and frequently urinating, and preventing constipation. Patient was given instructions as far as maintaining adequate distance and contact for an appropriate amount of time fromother persons. Written informed consent was obtained. IMPRESSION: Successful oral administration of 157.6 mCi Iodine-131 for the treatment of metastatic papillary thyroid cancer. This report was approved by Dru Siu on 03/19/2021 5:28 PM . I, Dr. DISHA MORA M.D. have personally reviewed and interpreted this examination/study. This report was electronically signed by DISHA MORA M.D. on03/19/2021 6:06 PM . Yosi Bustamante MD NM ORDERABLES * XR KNEE LEFT 4VW OR MORE (02/14/2021 12:18 PM CDT) Anatomical Region Laterality Modality Lower Extremity Radiographic Antonieta ging 02/14/2021 1:15 PM CDT Impressions 02/14/2021 1:15 PM CDT IMPRESSION: Normal. This report was electronically signed by NICO MEEHAN MD ??on 02/14/2021 1:15 PM . Narrative 02/14/2021 1:15 PM CDT Exam: ??XR KNEE LEFT 4VW History: ??M25.569: Knee pain, unspecified chronicity, unspecified laterality Comparison: None. Findings: No fracture or dislocation is present. The joint spaces are normal. There is no effusion. Procedure Note Nico Meehan MD - 02/14/2021 Exam: XR KNEE LEFT 4VW History: M25.569: Knee pain, unspecified chronicity, unspecified laterality Comparison: None. Findings: No fracture or dislocation is present. The joint spaces are normal.There is no effusion. IMPRESSION: Normal. This report was electronically signed by NICO MEEHAN MD on02/14/2021 1:15 PM . Cesar Brooks MD DIAGNOSTIC IMAGING ORDERABLES * WA TANGNTL BX SKIN SINGLE LES (12/09/2020 3:50 PM CDT) Narrative Mee Ward MD - 12/09/2020 3:50 PM CDT Mana Park MD ? 12/09/2020 ??3:50 PM Risks, benefits and alternatives to shave biopsy were discussed with the patient. Verbal consent was obtained. Encounter Diagnosis Name Primary? ? ? Neoplasm of uncertain behavior of skin Yes Location: R ear antehelix Skin prep: Alcohol Anesthesia: 1% lidocaine with epinephrine Hemostasis: Aluminum chloride Dressing and wound care discussed. Specimen(s) placed in a patient labeled container and sent to [facility] Dermatopathology. Patient agrees to phone call for results and message if not available. Mana Park MD Mee Ward MD PROCEDURE/NIDHI R SURGICAL ORDERABLES * DERMATOPATHOLOGY (12/09/2020 3:33 AM CDT) Case Report Dermatopathology Report ? Case: [id number] ? Authorizing Provider: ??Mee Ward, ?? Collected: ? 12/09/2020 03:33 AM ? Ordering Location: ? [facility] ?Received: ?12/10/2020 05:22 AM ? Dermatology ? Pathologist: ? Mee Ward, ? MD ? Specimen: ?Skin, right ear antehelix ? 1 4:19 PM CDT DERMATOPATHOLOGY LABORATORY Final Diagnosis Specimen A. 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 The specimen consists of a shave biopsy measuring 6x5x2 mm. Jar 0. 4:19 PM CDT DERMATOPATHOLOGY LABORATORY Microscopic Description Specimen A. SKIN, right ear antehelix: There is epidermal hyperplasia overlying dilated blood vessels and fibroplasia. 4:19 PM CDT DERMATOPATHOLOGY LABORATORY Disclaimer An external and internal positive and negative controls are appropriate for the histochemical, immunohistochemical and immunofluorescence stain(s) in this case (if any), except where stated explicitly. The performance characteristics of the stain(s) cited in this report were developed and its performance characteristic determined by the Dermatopathology Laboratory at [facility], directed by Dr. Cheli Soliz. These tests need not be, and therefore are not, approved by the [place] Food and Drug Administration. The tests are used for clinical purposes. Billing Codes Specimen Charges Stain Charges 41644 1 4:19 PM CDT DERMATOPATHOLOGY LABORATORY Embedded Images 4:19 PM CDT DERMATOPATHOLOGY LABORATORY Pathology/Cytolo gy TISSUE SPECIMEN FROM SKIN / Unknown 12/09/2020 3:33 AM CDT 12/10/2020 5:22 AM CDT Mee Ward MD LAB - PATHOLOG Y/CYTOLOGY ORDERABLES DERMATOPATHOLOGY LABORATORY [facility] Department of Dermatology [address] [phone] * XR HIP LEFT 2VW OR MORE (11/19/2020 11:38 AM CDT) Only the most recent of2 resultswithin the time period is included. Anatomical Region Laterality Modality Pelvis, Lower Extremity Radiogra phic Imaging 11/19/2020 12:5 7 PM CDT Impressions 11/19/2020 1:00 PM CDT IMPRESSION: Severe left hip arthritis, slightly progressed. This report was electronically signed by NICO MEEHAN MD ??on 11/19/2020 1:00 PM . Narrative 11/19/2020 1:00 PM CDT Exam: XR HIP LEFT 2VW XR PELVIS 1 VW History: ??M16.12: Primary osteoarthritis of left hip Comparison: 02/27/2020 Findings: Left hip: No acute fracture or dislocation is seen. There is severe arthritis with zfkv-bq-ovdv contact superiorly, subchondral cysts, sclerosis, and osteophytes. This has progressed slightly. Coexisting femoral head avascular necrosis is difficult to exclude. Pelvis: No fracture is seen. The pubic symphysis and sacroiliac joints are intact. The right hip joint space is maintained. Procedure Note Nico Meehan MD - 11/19/2020 Exam: XR HIP LEFT 2VW XR PELVIS 1 VW History: M16.12: Primary osteoarthritis of left hip Comparison: 02/27/2020 Findings: Left hip: No acute fracture or dislocation is seen. There is severe arthritis with yofi-le-deto contact superiorly, subchondral cysts, sclerosis, and osteophytes. This has progressed slightly. Coexisting femoral head avascular necrosis is difficult to exclude. Pelvis: No fracture is seen. The pubic symphysis and sacroiliac joints areintact. The right hip joint space is maintained. IMPRESSION: Severe left hip arthritis, slightly progressed. This report was electronically signed by NICO MEEHAN MD on11/19/2020 1:00 PM . Cesar Brooks MD DIAGNOSTIC IMAGING ORDERABLES * XR PELVIS 1 OR 2VW (11/19/2020 11:38 AM CDT) Only the most recent of2 resultswithin the time period is included. Anatomical Region Laterality Modality Pelvis Radiographic Antonieta ging 11/19/2020 12:5 7 PM CDT Impressions 11/19/2020 1:00 PM CDT IMPRESSION: Severe left hip arthritis, slightly progressed. This report was electronically signed by NICO MEEHAN MD ??on 11/19/2020 1:00 PM . Narrative 11/19/2020 1:00 PM CDT Exam: XR HIP LEFT 2VW XR PELVIS 1 VW History: ??M16.12: Primary osteoarthritis of left hip Comparison: 02/27/2020 Findings: Left hip: No acute fracture or dislocation is seen. There is severe arthritis with fatc-xp-gtus contact superiorly, subchondral cysts, sclerosis, and osteophytes. This has progressed slightly. Coexisting femoral head avascular necrosis is difficult to exclude. Pelvis: No fracture is seen. The pubic symphysis and sacroiliac joints are intact. The right hip joint space is maintained. Procedure Note Nico Meehan MD - 11/19/2020 Exam: XR HIP LEFT 2VW XR PELVIS 1 VW History: M16.12: Primary osteoarthritis of left hip Comparison: 02/27/2020 Findings: Left hip: No acute fracture or dislocation is seen. There is severe arthritis with opzj-us-nstw contact superiorly, subchondral cysts, sclerosis, and osteophytes. This has progressed slightly. Coexisting femoral head avascular necrosis is difficult to exclude. Pelvis: No fracture is seen. The pubic symphysis and sacroiliac joints areintact. The right hip joint space is maintained. IMPRESSION: Severe left hip arthritis, slightly progressed. This report was electronically signed by NICO MEEHAN MD on11/19/2020 1:00 PM . Cesar Brooks MD DIAGNOSTIC IMAGING ORDERABLES * SCAN ONLY HIS OPIOID MED AGREEMENT (11/04/2020) Historical Provider SCANNING ONLY * (ABNORMAL) CALCIUM IONIZED WHOLE BLOOD (08/29/2020 4:08 AM S[employer]IOR SOFTWARE QUALITY ENGINEER) Only the most recent of37 resultswithin the time period is included. Ionized Calcium Whole Blood 1.05 mmol/L 08/29/2020 4:58 AM [facility] Adjusted Ionized Calcium 1.07(L) 1.19 - 1.34 mmol/L 08/29/2020 4:58 AM [facility] pH Whole Blood 7.44 7.35 - 7.45 08/29/2020 4:58 AM [facility] Blood WHOLE BLOOD SPECIMEN / Unknown Lab Venipuncture / Unknown 08/29/2020 4:08 AM [employer] 08/29/2020 4:57 AM S[employer]IOR SOFTWARE QUALITY ENGINEER Dionte Comer MD LAB - CHEMISTRY [facility] [place] [address] [place] [address], [facility] [phone] * (ABNORMAL) CBC W/O DIFFERENTIAL (08/29/2020 4:08 AM [facility]) Only the most recent of12 resultswithin the time period is included. WBC 11.2(H) 3.5 - 10.5 10? 3 /uL 08/29/2020 5:12 AM [facility] RBC 4.27 3.90 - 5.00 10? 6 /uL 08/29/2020 5:12 AM [facility] Hemoglobin 12.3 12.0 - 15.5 g/dL 08/29/2020 5:12 AM [facility] Hematocrit 38.0 35.0 - 45.0 % 08/29/2020 5:12 AM [facility] MCV 89.0 81.0 - 97.0 fL 08/29/2020 5:12 AM [facility] MCH 28.8 28.0 - 34.0 pg 08/29/2020 5:12 AM [facility] MCHC 32.4 32.0 - 36.0 g/dL 08/29/2020 5:12 AM [facility] Platelet Count 380 150 - 400 10? 3 /uL 08/29/2020 5:12 AM [facility] RDW-SD 40.0 36.0 - 50.0 fL 08/29/2020 5:12 AM [facility] RDW-CV 12.4 11.2 - 14.8 % 08/29/2020 5:12 AM [facility] MPV 9.8 9.3 - 12.8 fL 08/29/2020 5:12 AM [facility] nRBC Absolute 0.00 0 10? 3 /uL 08/29/2020 5:12 AM [facility] nRBC Auto 0.0 0 /100 WBC 08/29/2020 5:12 AM [facility] Blood BLOOD SPECIMEN / Unknown Lab Venipuncture / Unknown 08/29/2020 4:08 AM S[employer]AL[employer] 08/29/2020 5:00 AM S[employer] SOFTWARE QUALITY ENGINEER Dionte Comer MD LAB - HEMATOLOGY ORD ERABLES [address] [address], [place] [phone] * (ABNORMAL) ALBUMIN BLOOD (08/29/2020 4:08 AM SENIOR SOFTWARE QUALITY ENGINEER) Only the most recent of7 resultswithin the time period is included. Albumin 2.9(L) 3.4 - 5.0 g/dL 08/29/2020 5:28 AM SENIOR SOFTWARE QUALITY ENGINEER [facility] Blood BLOOD SPECIMEN / Unknown Lab Venipuncture / Unknown 08/29/2020 4:08 AM SENIOR SOFTWARE QUALITY ENGINEER 08/29/2020 5:00 AM SENIOR SOFTWARE QUALITY ENGINEER Dionte Comer MD LAB - CHEMISTRY ORDE RABLES Performing Organization Address City/[facility]/ZIP Co de Phone Number [address] [address], [place] [phone] * (ABNORMAL) GLUCOSE - POINT OF CARE (08/27/2020 4:27 PM SENIOR SOFTWARE QUALITY ENGINEER) Glucose WB/POC 157(H) 70 - 115 mg/dL 08/27/2020 4:32 PM SENIOR SOFTWARE QUALITY ENGINEER [facility] Specimen Type Arterial/C apillary 08/27/2020 4:32 PM SENIOR SOFTWARE QUALITY ENGINEER [facility] Blood BLOOD SPECIMEN / Unknown 08/27/2020 4:27 PM SENIOR SOFTWARE QUALITY ENGINEER 08/27/2020 4:32 PM SENIOR SOFTWARE QUALITY ENGINEER Dionte Comer MD LAB - POINT OF CARE ORDERABLES [address] [address], [place] [phone] * CALCIUM URINE RANDOM (08/25/2020 1:12 PM SENIOR SOFTWARE QUALITY ENGINEER) Only the most recent of3 resultswithin the time period is included. Calcium Random Urine 5.5 Not Established mg/dL 08/25/2020 1:41 PM SENIOR SOFTWARE QUALITY ENGINEER [facility] Urine URINE SPECIMEN OBTAINED BY CLEAN CATCH PROCEDURE / Unknown Collection / Unknown 08/25/2020 1:12 PM SENIOR SOFTWARE QUALITY ENGINEER 08/25/2020 1:32 PM SENIOR SOFTWARE QUALITY ENGINEER Dionte Comer MD LAB - URINE CHEMISTR Y ORDERABLES [facility] [address] [place] [address], [facility] [phone] * XR ABDOMEN KUB PORTABLE (08/19/2020 4:52 PM SENIOR SOFTWARE QUALITY ENGINEER) Anatomical Region Laterality Modality Abdomen Radiographic Antonieta ging 08/20/2020 7:32 AM SENIOR SOFTWARE QUALITY ENGINEER Impressions 08/20/2020 9:00 AM SENIOR SOFTWARE QUALITY ENGINEER Findings/impression: 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 Dictated by Kendall Quiroz MD (radiology asst). I, Dr. ROGER HOUSE have personally reviewed and interpreted this examination/study. This report was electronically signed by ROGER HOUSE ??on 08/20/2020 9:00 AM . Narrative 08/20/2020 9:00 AM SENIOR SOFTWARE QUALITY ENGINEER EXAMINATION: XR ABDOMEN KUB PORTABLE HISTORY: J39.8: Tracheal mass; Dobbhoff tube placement COMPARISON: No prior study is available for comparison at the time of this dictation. 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 Findings/impression: 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 Dictated by Kendall Quiroz MD (radiology asst). I, Dr. ROGER HOUSE have personally reviewed and interpreted this examination/study. This report was electronically signed by ROGER HOUSE on 08/20/2020 9:00 AM . Dionte Comer MD DIAGNOSTIC IMAGING O RDERABLES * ETT LINE PERFORMABLE (08/19/2020 2:20 PM SENIOR SOFTWARE QUALITY ENGINEER) Narrative Unruly Parker MD - 08/19/2020 2:20 PM SENIOR SOFTWARE QUALITY ENGINEER Unruly Parker MD ? 08/27/2020 ??7:46 AM Endotracheal Tube Placement: ? Patient Location: OR. Intubation Event Date/Time: ??08/19/2020 2:10 PM Procedure: intubation (71674). Procedure Section: ?? Sedation: under general anesthesia. Indications for Airway Management: ??anesthesia Procedure pretreatments used? ??No Induction: other - please comment Patient Position: ??supine Mask Ventilation: not attempted. Blade Type: Young Blade Size: 2 Laryngoscopy View: grade 2 (partial cords) Intubation Adjuncts: stylet Tube: endotracheal tube Placement: oral Tube type: cuff - inflated Tube Size (MM): 8 Depth of Insertion (CM): 23 Measured From: teeth Cuff Inflated With: air Number of Attempts: 1. Placement Verified By: direct visualization and CO2 monitor CXR Findings: ETT in proper place. Tube secured with: ??adhesive tape. Dentition unchanged? ??Yes Difficult Airway? ??No. Procedure Start Time: 08/19/2020 2:10 PM. Staff Section ?? Anesthesia Provider: Norma Santana APRN-CONCRETE FINISHER APPRENTICE, Performed the procedure Provider #1: Unruly Parker MD. Additional Comments: reintubated orally after having had ETT in tracheal incision. Under continuous general anesthesia. Unruly Parker MD GENERAL ANESTHESIA O RDERABLES * ETT LINE PERFORMABLE (08/19/2020 8:34 AM [facility]) Narrative Unruly Parker MD - 08/19/2020 8:34 AM SENIOR SOFTWARE QUALITY ENGINEER Unruly Parker MD ? 08/27/2020 ??7:46 AM Endotracheal Tube Placement: ? Patient Location: OR. Intubation Event Date/Time: ??08/19/2020 7:45 AM Procedure: intubation ([id number]). Procedure Section: ?? Sedation: under general anesthesia. Indications for Airway Management: ??anesthesia Procedure pretreatments used? ??No Induction: standard IV Patient Position: ??sniffing Mask Ventilation: easy. Blade Type: other - plese comment Laryngoscopy View: grade 2 (partial cords) Tube: nerve integrity monitoring tube Placement: oral Tube type: cuff - inflated Tube Size (MM): 6 Depth of Insertion (CM): 24 Measured From: lips Cuff Inflated With: air Number of Attempts: 1. Placement Verified By: direct visualization and CO2 monitor CXR Findings: ETT in proper place. Tube secured with: ??adhesive tape. Dentition unchanged? ??Yes Difficult Airway? ??No. Procedure Start Time: 08/19/2020 7:45 AM. Staff Section ?? Anesthesia Provider: Norma Santana APRN-CONCRETE FINISHER APPRENTICE Provider #1: Unruly Parker MD. Additional Comments: IV induction, then Dr. Comer did largyngoscopy and placed #6 nerve monitoring ETT after using LTA, ETT secured with pink tape and tegaderms. Surgeon placed tegaderms over eyes. . Unruly Parker MD GENERAL ANESTHESIA O RDERABLES * MRI BRAIN WO CONTRAST (08/17/2020 1:40 PM SENIOR SOFTWARE QUALITY ENGINEER) Anatomical Region Laterality Modality Head Magnetic Resonan ce 08/19/2020 7:32 AM SENIOR SOFTWARE QUALITY ENGINEER Impressions 08/19/2020 11:14 AM SENIOR SOFTWARE QUALITY ENGINEER IMPRESSION: 1.Corresponding to the abnormality seen on the recent CT scan, there is 1.5 x 0.9 cm, poorly marginated focus of signal abnormality in the posterior right putamen/subinsular region with associated mild susceptibility artifact and mild mass effect without restricted diffusion. This lesion is nonspecific and may represent sequela of prior injury, cortical dysplasia or primary neoplasm. There was presumed enhancement on the CT scan (precontrast images are not available for CT scan and postcontrast MRI images are not available). Short interval follow-up with contrast is recommended. 2. Redemonstration of a heterogeneously enhancing 3.1 cm the right thyroid lobe nodule with mass effect on the right posterolateral aspect of the upper trachea. 3.Solitary enlarged left level 3/4 cervical lymph node. I, Dr. CHANTELL SNELL have personally reviewed and interpreted this examination/study. This report was electronically signed by CHANTELL SNELL ??on 08/19/2020 11:14 AM . 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 TECHNIQUE: MRI of the brain was performed without contrast and MRI of the neck was performed prior to and following the uneventful administration of 7 ml Gadavist contrast according to standard protocol. COMPARISON: CT neck soft tissue 07/24/2020. FINDINGS: BRAIN: Corresponding to the abnormality seen on the recent CT scan, there is poorly marginated focus T2/FLAIR hyperintense signal in the posterior right putamen/subinsular region. There is mild susceptibility artifact in this region an mild mass effect without restricted diffusion. Overall, the area measures approximately 1.5 x 0.9 cm in transaxial dimensions. This is nonspecific and may represent sequela of prior injury cortical dysplasia or primary neoplasm. There was presumed enhancement on the CT scan (precontrast images are not available for CT scan and postcontrast MRI images are not available). No evidence of acute cerebral infarction is seen. Scattered periventricular, deep and subcortical T2/FLAIR hyperintensities likely related to chronic microvascular ischemic changes. The ventricles are of normal size, shape, and morphology. No mass effect or midline shift is seen. The corpus callosum and sella appear normal. The posterior fossa, brainstem, and craniocervical junction appear normal. Mild mucosal thickening of anterior ethmoid air cells is noted. The visualized portions of the orbits, remaining paranasal sinuses, and mastoids appear normal. Normal flow voids are demonstrated in the carotid arteries and basilar artery. The visualized calvarium appears normal. NECK: There is a large irregular heterogeneously enhancing nodule in the right lobe of the thyroid gland measuring up to 2.5 x 2.4 x 3.1 cm (image 14 series 11, image 22 series 10), essentially unchanged in size since prior CT. The lesion exerts mass effect on the right posterolateral aspect of the upper trachea. The mass is inseparable from the esophagus. Other smaller subcentimeter nodules are seen in bilateral thyroid lobes. There is a left level 3/4 cervical lymph node (image 18 series 5, image 20 series 9) measuring up to 1.3 x 1.2 x 2.0 cm. No other enlarged lymph nodes are seen. The muscles of the neck appear normal. The visible salivary glands appear normal. The cervical spine demonstrate multilevel degenerative changes. 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 TECHNIQUE: MRI of the brain was performed without contrast and MRI ofthe neck was performed prior to and following the uneventful administrationof 7 ml Gadavist contrast according to standard protocol. COMPARISON: CT neck soft tissue 07/24/2020. FINDINGS: BRAIN: Corresponding to the abnormality seen on the recent CT scan, there is poorly marginated focus T2/FLAIR hyperintense signal in the posterior right putamen/subinsular region. There is mild susceptibility artifactin this region an mild mass effect without restricted diffusion. Overall,the area measures approximately 1.5 x 0.9 cm in transaxial dimensions. Thisis nonspecific and may represent sequela of prior injury cortical dysplasia or primary neoplasm. There was presumed enhancement on the CT scan (precontrast images are not available for CT scan and postcontrast MRI images are not available). No evidence of acute cerebral infarction is seen. Scattered periventricular, deep and subcortical T2/FLAIR hyperintensities likely related to chronic microvascular ischemic changes. The ventricles are of normal size, shape, and morphology. No mass effect or midline shift is seen. The corpus callosum and sella appear normal. The posterior fossa, brainstem, and craniocervical junction appear normal. Mild mucosal thickening of anterior ethmoid air cells is noted. The visualized portions of the orbits, remaining paranasal sinuses, and mastoids appear normal. Normal flow voids are demonstrated in thecarotid arteries and basilar artery. The visualized calvarium appears normal. NECK: There is a large irregular heterogeneously enhancing nodule in the right lobe of the thyroid gland measuring up to 2.5 x 2.4 x 3.1 cm (image 14 series 11, image 22 series 10), essentially unchanged in size sinceprior CT. The lesion exerts mass effect on the right posterolateral aspect of the upper trachea. The mass is inseparable from the esophagus. Other smaller subcentimeter nodules are seen in bilateral thyroid lobes. There is a left level 3/4 cervical lymph node (image 18 series 5, image20 series 9) measuring up to 1.3 x 1.2 x 2.0 cm. No other enlarged lymph nodes are seen. The muscles of the neck appear normal. The visible salivary glandsappear normal. The cervical spine demonstrate multilevel degenerative changes. IMPRESSION: 1.Corresponding to the abnormality seen on the recent CT scan, there is 1.5 x 0.9 cm, poorly marginated focus of signal abnormality in the posterior right putamen/subinsular region with associated mild susceptibility artifact and mild mass effect without restricteddiffusion. This lesion is nonspecific and may represent sequela of prior injury, cortical dysplasia or primary neoplasm. There was presumed enhancementon the CT scan (precontrast images are not available for CT scan and postcontrast MRI images are not available). Short interval follow-upwith contrast is recommended. 2. Redemonstration of a heterogeneously enhancing 3.1 cm the rightthyroid lobe nodule with mass effect on the right posterolateral aspect of the upper trachea. 3.Solitary enlarged left level 3/4 cervical lymph node. I, Dr. CHANTELL SNELL have personally reviewed and interpreted this examination/study. This report was electronically signed by CHANTELL SNELL on 08/19/2020 11:14 AM . Dionte Comer MD MR ORDERABLES * MRI NECK SOFT TISSUE WWO CONT (08/17/2020 1:39 PM SENIOR SOFTWARE QUALITY ENGINEER) Anatomical Region Laterality Modality Head Magnetic Resonan ce 08/19/2020 7:32 AM SENIOR SOFTWARE QUALITY ENGINEER Impressions 08/19/2020 11:14 AM SENIOR SOFTWARE QUALITY ENGINEER IMPRESSION: 1.Corresponding to the abnormality seen on the recent CT scan, there is 1.5 x 0.9 cm, poorly marginated focus of signal abnormality in the posterior right putamen/subinsular region with associated mild susceptibility artifact and mild mass effect without restricted diffusion. This lesion is nonspecific and may represent sequela of prior injury, cortical dysplasia or primary neoplasm. There was presumed enhancement on the CT scan (precontrast images are not available for CT scan and postcontrast MRI images are not available). Short interval follow-up with contrast is recommended. 2. Redemonstration of a heterogeneously enhancing 3.1 cm the right thyroid lobe nodule with mass effect on the right posterolateral aspect of the upper trachea. 3.Solitary enlarged left level 3/[address] CHANTELL Mckeon have personally reviewed and interpreted this examination/study. This report was electronically signed by CHANTELL SNELL ??on 08/19/2020 11:14 AM . 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 TECHNIQUE: MRI of the brain was performed without contrast and MRI of the neck was performed prior to and following the uneventful administration of 7 ml Gadavist contrast according to standard protocol. COMPARISON: CT neck soft tissue 07/24/2020. FINDINGS: BRAIN: Corresponding to the abnormality seen on the recent CT scan, there is poorly marginated focus T2/FLAIR hyperintense signal in the posterior right putamen/subinsular region. There is mild susceptibility artifact in this region an mild mass effect without restricted diffusion. Overall, the area measures approximately 1.5 x 0.9 cm in transaxial dimensions. This is nonspecific and may represent sequela of prior injury cortical dysplasia or primary neoplasm. There was presumed enhancement on the CT scan (precontrast images are not available for CT scan and postcontrast MRI images are not available). No evidence of acute cerebral infarction is seen. Scattered periventricular, deep and subcortical T2/FLAIR hyperintensities likely related to chronic microvascular ischemic changes. The ventricles are of normal size, shape, and morphology. No mass effect or midline shift is seen. The corpus callosum and sella appear normal. The posterior fossa, brainstem, and craniocervical junction appear normal. Mild mucosal thickening of anterior ethmoid air cells is noted. The visualized portions of the orbits, remaining paranasal sinuses, and mastoids appear normal. Normal flow voids are demonstrated in the carotid arteries and basilar artery. The visualized calvarium appears normal. NECK: There is a large irregular heterogeneously enhancing nodule in the right lobe of the thyroid gland measuring up to 2.5 x 2.4 x 3.1 cm (image 14 series 11, image 22 series 10), essentially unchanged in size since prior CT. The lesion exerts mass effect on the right posterolateral aspect of the upper trachea. The mass is inseparable from the esophagus. Other smaller subcentimeter nodules are seen in bilateral thyroid lobes. There is a left level 3/4 cervical lymph node (image 18 series 5, image 20 series 9) measuring up to 1.3 x 1.2 x 2.0 cm. No other enlarged lymph nodes are seen. The muscles of the neck appear normal. The visible salivary glands appear normal. The cervical spine demonstrate multilevel degenerative changes. 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 TECHNIQUE: MRI of the brain was performed without contrast and MRI ofthe neck was performed prior to and following the uneventful administrationof 7 ml Gadavist contrast according to standard protocol. COMPARISON: CT neck soft tissue 07/24/2020. FINDINGS: BRAIN: Corresponding to the abnormality seen on the recent CT scan, there is poorly marginated focus T2/FLAIR hyperintense signal in the posterior right putamen/subinsular region. There is mild susceptibility artifactin this region an mild mass effect without restricted diffusion. Overall,the area measures approximately 1.5 x 0.9 cm in transaxial dimensions. Thisis nonspecific and may represent sequela of prior injury cortical dysplasia or primary neoplasm. There was presumed enhancement on the CT scan (precontrast images are not available for CT scan and postcontrast MRI images are not available). No evidence of acute cerebral infarction is seen. Scattered periventricular, deep and subcortical T2/FLAIR hyperintensities likely related to chronic microvascular ischemic changes. The ventricles are of normal size, shape, and morphology. No mass effect or midline shift is seen. The corpus callosum and sella appear normal. The posterior fossa, brainstem, and craniocervical junction appear normal. Mild mucosal thickening of anterior ethmoid air cells is noted. The visualized portions of the orbits, remaining paranasal sinuses, and mastoids appear normal. Normal flow voids are demonstrated in thecarotid arteries and basilar artery. The visualized calvarium appears normal. NECK: There is a large irregular heterogeneously enhancing nodule in the right lobe of the thyroid gland measuring up to 2.5 x 2.4 x 3.1 cm (image 14 series 11, image 22 series 10), essentially unchanged in size sinceprior CT. The lesion exerts mass effect on the right posterolateral aspect of the upper trachea. The mass is inseparable from the esophagus. Other smaller subcentimeter nodules are seen in bilateral thyroid lobes. There is a left level 3/4 cervical lymph node (image 18 series 5, image20 series 9) measuring up to 1.3 x 1.2 x 2.0 cm. No other enlarged lymph nodes are seen. The muscles of the neck appear normal. The visible salivary glandsappear normal. The cervical spine demonstrate multilevel degenerative changes. IMPRESSION: 1.Corresponding to the abnormality seen on the recent CT scan, there is 1.5 x 0.9 cm, poorly marginated focus of signal abnormality in the posterior right putamen/subinsular region with associated mild susceptibility artifact and mild mass effect without restricteddiffusion. This lesion is nonspecific and may represent sequela of prior injury, cortical dysplasia or primary neoplasm. There was presumed enhancementon the CT scan (precontrast images are not available for CT scan and postcontrast MRI images are not available). Short interval follow-upwith contrast is recommended. 2. Redemonstration of a heterogeneously enhancing 3.1 cm the rightthyroid lobe nodule with mass effect on the right posterolateral aspect of the upper trachea. 3.Solitary enlarged left level 3/4 cervical lymph node. I, Dr. CHANTELL SNELL have personally reviewed and interpreted this examination/study. This report was electronically signed by CHANTELL SNELL on 08/19/2020 11:14 AM . Dionte Comer MD MR ORDERABLES * SARS-COV-2 (COVID-19) IN HOUSE (08/15/2020 11:01 AM SENIOR SOFTWARE QUALITY ENGINEER) COVID-19 PCR Not detected Not detected 08/15/2020 4:50 PM SENIOR SOFTWARE QUALITY ENGINEER [facility] Microbiology SPECIMEN FROM NASOPHARYNGEAL STRUCTURE / Unknown Collection / Unknown 08/15/2020 11:01 AM SENIOR SOFTWARE QUALITY ENGINEER 08/15/2020 11:01 AM SENIOR SOFTWARE QUALITY ENGINEER Narrative [facility] - 08/15/2020 4:50 PM SENIOR SOFTWARE QUALITY ENGINEER This nucleic acid amplification assay performance was validated by [facility]. This test has been authorized by the Food and Drug administration (FDA)under an Emergency??Use Authorization (EUA). This test has been validated in accordance with the FDA's guidance document Policy for Diagnostic Testing in Laboratories Certified to perform High Complexity Testing under CLIA prior to Emergency Use Authorization for Coronavirus Disease-2019 during the Public Health Emergency issued on September 02, 2019. FDA independent review of this validation is pending. This test is only authorized for the duration of time the declaration that circumstances exist justifying the authorization of emergency use of in vitro diagnostic tests for detection of SARS-CoV-2 virus and/or diagnosis of COVID-19 infection under section 564(b)(1) of the Act, 21 U.S.C 360bbb-3 (b)(1), unless the authorization is terminated or revoked sooner. Fact Sheets for this EUA assay are available upon request. Dionte Comer MD LAB - MICROBIOLOGY O RDERABLES [facility] [address] [place] [address], [facility] [phone] * DC SWALLOWING FUNCTION STUDY (08/07/2020 3:25 PM SENIOR SOFTWARE QUALITY ENGINEER) Anatomical Region Laterality Modality Chest Radiographic Antonieta ging 08/07/2020 3:11 PM SENIOR SOFTWARE QUALITY ENGINEER Impressions 08/07/2020 3:16 PM SENIOR SOFTWARE QUALITY ENGINEER IMPRESSION: Fluoroscopic assistance was provided for a modified barium swallow test performed by Speech Therapy. Please see the Speech Therapy report for details. Report dictated by Jonathan Andre DO (radiology asst). I, Dr. ROGER HOUSE have personally reviewed and interpreted this examination/study. This report was electronically signed by ROGER HOUSE ??on 08/07/2020 3:16 PM . 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 FLUOROSCOPY TIME: 1.6 minutes IMPRESSION: Fluoroscopic assistance was provided for a modified barium swallow test performed by Speech Therapy. Please see the Speech Therapy report for details. Report dictated by Jonathan Andre DO (radiology asst). I, Dr. ROGER HOUSE have personally reviewed and interpreted this examination/study. This report was electronically signed by ROGER HOUSE on 08/07/2020 3:16 PM . Nolvia Srinivas Chun [employer] ROUTE CARRIER-LOCOMOTIVE MECHANIC FLUOROSCOPY ORDERA BLES * FINE NEEDLE ASPIRATION - THYROID (STL) (08/01/2020 2:51 PM SENIOR SOFTWARE QUALITY ENGINEER) Only the most recent of2 resultswithin the time period is included. Case Report Medical Cytology Report ? Case: [id number] ? Authorizing Provider: ??Maryse Lovett MD ? Collected: ? 08/01/2020 02:51 PM ? Ordering Location: ? [facility] ?Received: ?08/01/2020 03:15 PM ? Pathologist: ? Jhonny Young MD ? Specimen: ?Thyroid, right nodule ? 08/05/2020 3:26 PM SENIOR SOFTWARE QUALITY ENGINEER [facility] Specimen Adequacy Adequate cellularity for evaluation. 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 08/05/2020 3:26 PM [facility] Clinical History The patient is a 60 year-old woman recently found to have a right thyroid nodule who underwent fine needle aspiration of the nodule on 08/01/2020. CT neck (07/24/2020) A 2.8 x 2.0 cm hypoattenuating nodule in the right lobe of the thyroid gland causing mass effect. 08/05/2020 3:26 PM [facility] Gross Description 1 pap stained slide, 1 cell block from 30cc collection fluid 08/05/2020 3:26 PM [facility] Microscopic Description A ThinPrep slide shows a hypercellular aspirate consisting of a small amount of colloid, abundant lymphocytes, and clusters of follicular epithelium with enlarged nuclei, prominent nucleoli, elevated N:C ratios, and hyperchromasia. The cell block shows nuclear clearing in cells forming follicles. Comment: Although the nuclear atypia is concerning for papillary-like nuclear changes, however the overall architecture is more in keeping with a follicular neoplasm. The histopathologic follow-up of cases diagnosed as such includes follicular adenoma, follicular carcinoma, and follicular variant of papillary thyroid carcinoma, including its indolent counterpart NIFTP. 08/05/2020 3:26 PM [facility] Disclaimer The performance characteristics of all immunohistochemical and indirect immunofluorescence stains (if any) cited in this report were determined by the Histopathology Laboratory of [facility]. Some of these tests rely on the use of analyte-specific reagents and are subject to specific labeling requirements by the US Food and Drug Administration. Such tests were developed by the Histology Laboratory of [facility] and have not been cleared or approved by the FDA. The FDA has determined that such clearance and approval is not necessary. These tests are used for clinical purposes and should not be regarded as investigational or for research. This laboratory is certified under the Clinical Laboratory Improvement Amendments (CLIA) as qualified to perform high complexity clinical laboratory testing. This case has been personally reviewed and interpreted by the attending (teaching) pathologist. 08/05/2020 3:26 PM [facility] Embedded Images 08/05/2020 3:26 PM SENIOR SOFTWARE QUALITY ENGINEER [facility] Pathology/Cytolo gy SPECIMEN FROM THYROID OBTAINED BY THYROIDECTOMY / Unknown Collection / Unknown 08/01/2020 2:51 PM SENIOR SOFTWARE QUALITY ENGINEER 08/01/2020 3:15 PM SENIOR SOFTWARE QUALITY ENGINEER Maryse Lovett MD LAB - PATHOLOGY/CYTO LOGY ORDERABLES [facility] [address] [phone] * US THYROID FNA (08/01/2020 2:41 PM SENIOR SOFTWARE QUALITY ENGINEER) Anatomical Region Laterality Modality X-Ray Angiograph y 08/01/2020 2:59 PM SENIOR SOFTWARE QUALITY ENGINEER Impressions 08/11/2020 6:37 PM SENIOR SOFTWARE QUALITY ENGINEER Impression: Ultrasound-guided fine needle aspiration of a right thyroid nodule, as described above.The pathology report is pending at the time of this dictation. I, Dr. Maryse Lovett, was present and performed/supervised the entire procedure. Dictated by Molly Rao M.D. (radiology asst) I, Dr. MARYSE LOVETT M.D. have personally reviewed and interpreted this examination/study. This report was electronically signed by MARYSE LOVETT M.D. ??on 08/11/2020 6:37 PM . Narrative 08/11/2020 6:37 PM SENIOR SOFTWARE QUALITY ENGINEER History: 60 year oldfemalerecemtly found to have a right thyroid nodule requiring FNA for further evaluation. Today patient presents for scheduled image guided biopsy and related procedures. Operators: 1.Dr. Lovett, Attending Physician 2.Dr. Molly Rao, Resident Physician Anesthesia: Local - 6 mL of 1% lidocaine Procedure: 1.Limited ultrasound of the thyroid. 2.Ultrasound-guided fine needle aspiration (FNA) of a right thyroid nodule. Procedure in detail: The procedure, risks, and possible complications were explained to the patient in detail, and informed consent was obtained. The patient was placed in a supine position on the ultrasound table with the neck hyperextended. A limited multiplanar ultrasound examination of the thyroid was performed which demonstrated ?. A percutaneous entry point was marked on the skin. The marked site and skin around the region of interest was prepped and draped in sterile fashion. Local anesthesia was provided with 1% Lidocaine. Fine needle aspiration was performed using 25-gauge needles under ultrasound guidance. 7 passes were made and the needle entries were documented. The patient tolerated the procedure well and was transferred to the holding area in stable condition. There were no immediate complications associated with the procedure. Procedure Note Maryse Lovett MD - 08/11/2020 History: 60 year oldfemalerecemtly found to have a right thyroid nodule requiring FNA for further evaluation. Today patient presents forscheduled image guided biopsy and related procedures. Operators: 1.Dr. Lovett, Attending Physician 2.Dr. Molly Rao, Resident Physician Anesthesia: Local - 6 mL of 1% lidocaine Procedure: 1.Limited ultrasound of the thyroid. 2.Ultrasound-guided fine needle aspiration (FNA) of a right thyroidnodule. Procedure in detail: The procedure, risks, and possible complications were explained to the patient in detail, and informed consent was obtained. The patient was placed in a supine position on the ultrasound table with the neck hyperextended. A limited multiplanar ultrasound examination of thethyroid was performed which demonstrated . A percutaneous entry point was marked on the skin. The marked site and skin around the region of interest was prepped and draped in sterile fashion. Local anesthesia was provided with 1% Lidocaine. Fine needle aspiration was performed using 25-gauge needles under ultrasound guidance. 7 passes were made and the needle entrieswere documented. The patient tolerated the procedure well and was transferred to the holding area in stable condition. There were no immediate complications associated with the procedure. Impression: Ultrasound-guided fine needle aspiration of a right thyroid nodule, as described above.The pathology report is pending at the timeof this dictation. IDr. Maryse, was present and performed/supervised the entire procedure. Dictated by Molly Rao M.D. (radiology asst) Dr. MARYSE Mckeon M.D. have personally reviewed and interpreted this examination/study. This report was electronically signed by MARYSE LOVETT M.D. on08/11/2020 6:37 PM . Dionte Comer MD US ORDERABLES * WA LARYNGOSCOPY,FLEX FIBER,DIAGNOSTIC (07/24/2020 5:22 PM SENIOR SOFTWARE QUALITY ENGINEER) Narrative Vince Willingham MD - 07/24/2020 5:22 PM SENIOR SOFTWARE QUALITY ENGINEER Vince Willingham MD ? 07/24/2020 11:38 PM Procedure Note Endoscopy Type: ??Laryngoscopy without stroboscopy Endoscope: Flexible 4mm Scope Anesthesia: Lidocaine 2% and Neosynephrine 1/2% (nasal) and Lidocaine 1% with Epinphrine 1:100,000 ?2-3 ml (tracheal-percutaneous thru cricothyroid membrane using 25G 5/8 needle) Procedure Details: The patient was sitting upright in a chair with the head in a slightly anterior sniffing position. The topical anesthesia was administered and then adequate time was allowed ??for an anesthetic effect. The endoscope was passed thru the nasal cavity with the tongue retracted anteriorly. The tip of the endoscope was positioned in the oropharynx which allowed a complete view of the base of tongue, vallecula, pyriform recesses, epiglottis, bilateral true and false vocal folds, the interarytenoid and post cricoid region, and the immediate subglottis. Findings: right vocal cord immobile and in paramedian position; left vocal cord mobile; in the immediate subglottis, there appears to be tracheal invasion of the thyroid mass at the posterior wall Condition: Stable. ??Patient tolerated procedure well. Complications: None I was present for the entirety of the procedure. Dionte Comer MD PROCEDURE/MINOR SURG ICAL ORDERABLES * IMAGING RADIOLOGY XRAY RESULTS ORDER (07/24/2020 4:26 PM SENIOR SOFTWARE QUALITY ENGINEER) Anatomical Region Laterality Modality Other Narrative 07/24/2020 4:26 PM SENIOR SOFTWARE QUALITY ENGINEER Ordered by an unspecified provider. Scanned Document IMAGING * MRI FOOT RIGHT WO CONTRAST (07/02/2020 1:48 PM SENIOR SOFTWARE QUALITY ENGINEER) Anatomical Region Laterality Modality Ankle / Foot Magnetic Resonan ce 07/02/2020 2:35 PM SENIOR SOFTWARE QUALITY ENGINEER Impressions 07/02/2020 3:19 PM SENIOR SOFTWARE QUALITY ENGINEER IMPRESSION: 1. No fracture or stress fracture. 2. No Aceves's neuroma identified. Minimal fluid in the first and third intermetatarsal bursae, without significant distention or surrounding edema to suggest bursitis. 3. Edema at the plantar aspect of the the second metatarsophalangeal joint capsule in the region of the plantar plate with irregularity and focal discontinuity at its attachment to the base of the proximal phalanx, and mild bone marrow edema in the proximal phalanx. These findings are consistent with degeneration, dysfunction, and/or tear of the plantar plate. 4. 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 This report was electronically signed by NICO MEEHAN MD ??on 07/02/2020 3:19 PM . Narrative 07/02/2020 3:19 PM SENIOR SOFTWARE QUALITY ENGINEER Exam: ??MRI FOOT RIGHT WO CONTRAST History: ??M79.671: Right foot pain . Persistent pain in the second metatarsal, bursitis versus fracture versus Aceves neuroma Comparison: Right foot Radiographs dated 04/02/2020 TECHNIQUE: Images were obtained in the axial, sagittal, and coronal planes using T1 and fluid sensitive fat suppressed sequences without contrast. The sbzrk-vo-yewe was set to evaluate the area of the patient's symptoms and includes the forefoot and part of the midfoot. Findings: Motion artifact is present on the axial T2 fat saturation sequence. No fracture is seen. There is moderate arthritis at the first metatarsophalangeal joint with cartilage irregularity and numerous subchondral cysts and bone marrow edema in the metatarsal head and medial and lateral hallux sesamoids and proximal phalanx base. Osteophytes are present. At the second metatarsophalangeal joint, there is edema in the plantar aspect of the joint capsule with thickening and mild signal change of the plantar plate with irregularity and focal discontinuity at the attachment to the base of the proximal phalanx (series 10 image 14-15). Additionally there is bone marrow edema and a small cyst in the plantar aspect of the base of the proximal phalanx in this region (series 12 image 29). There is mild arthritis at the second tarsometatarsal joint with a subchondral cyst in the middle cuneiform (series 10 image 15). The cartilage at the other joints is normal. No joint effusions are seen. No mass is seen to suggest a Aceves neuroma. There is minimal fluid in the intermetatarsal bursae between the first and second metatarsal and third and fourth metatarsal heads (series 12 image 25 and 24), but no distention of these bursae to suggest bursitis. The visualized flexor and extensor tendons are normal in thickness and signal. The muscles are normal in bulk. The partly visualized plantar fascia is normal in thickness. Procedure Note Nico Meehan MD - 07/02/2020 Exam: MRI FOOT RIGHT WO CONTRAST History: M79.671: Right foot pain . Persistent pain in the second metatarsal, bursitis versus fracture versus Aceves neuroma Comparison: Right foot Radiographs dated 04/02/2020 TECHNIQUE: Images were obtained in the axial, sagittal, and coronalplanes using T1 and fluid sensitive fat suppressed sequences without contrast. The bzmxi-im-enyj was set to evaluate the area of the patient's symptoms and includes the forefoot and part of the midfoot. Findings: Motion artifact is present on the axial T2 fat saturation sequence. No fracture is seen. There is moderate arthritis at the first metatarsophalangeal joint with cartilage irregularity and numerous subchondral cysts and bone marrow edema in the metatarsal head and medial and lateral hallux sesamoids and proximal phalanx base. Osteophytes are present. At the second metatarsophalangeal joint, there is edema in the plantar aspect of the joint capsule with thickening and mild signal change ofthe plantar plate with irregularity and focal discontinuity at theattachment to the base of the proximal phalanx (series 10 image 14-15).Additionally there is bone marrow edema and a small cyst in the plantar aspect of the base of the proximal phalanx in this region (series 12 image 29). There is mild arthritis at the second tarsometatarsal joint with a subchondral cyst in the middle cuneiform (series 10 image 15). The cartilage at the other joints is normal. No joint effusions areseen. No mass is seen to suggest a Aceves neuroma. There is minimal fluid inthe intermetatarsal bursae between the first and second metatarsal and third and fourth metatarsal heads (series 12 image 25 and 24), but nodistention of these bursae to suggest bursitis. The visualized flexor and extensor tendons are normal in thickness and signal. The muscles are normal in bulk. The partly visualized plantar fascia is normal in thickness. IMPRESSION: 1. No fracture or stress fracture. 2. No Aceves's neuroma identified. Minimal fluid in the first and third intermetatarsal bursae, without significant distention or surrounding edema to suggest bursitis. 3. Edema at the plantar aspect of the the second metatarsophalangealjoint capsule in the region of the plantar plate with irregularity and focal discontinuity at its attachment to the base of the proximal phalanx, and mild bone marrow edema in the proximal phalanx. These findings are consistent with degeneration, dysfunction, and/or tear of the plantar plate. 4. 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 This report was electronically signed by NICO MEEHAN MD on 07/02/2020 3:19 PM . Samantha FRANKS MR ORDERABLES * CT GUIDED NEEDLE BIOPSY THYROID ([id number]) (04/18/2020 4:07 PM CDT) Anatomical Region Laterality Modality Abdomen Computed Tomogra phy 04/23/2020 7:16 PM CDT Impressions 04/27/2020 5:44 PM CDT Impression: Ultrasound-guided fine needle aspiration of right thyroid nodule , as described above. Dr. Milan Quarles was present and performed/supervised the entire procedure. This report was electronically signed by MEG QUARLES M.D. ??on 04/27/2020 5:44 PM . Narrative 04/27/2020 5:44 PM CDT History: Patient with the right-sided thyroid nodule (TR 5), was referred for ultrasound-guided fine-needle aspiration. [employer] Supervisor: Dr. Milan Quarles, Attending Physician Anesthesia: Local anesthesia - 2 ml of 1 % lidocaine. Procedure: Limited ultrasound of thyroid. Ultrasound guided Fine needle aspiration (FNA) of right thyroid nodule. Procedure in Detail: The procedure and possible complications were explained to the patient in detail, and informed consent was obtained. The patient was placed supine on an ultrasound table. Limited multiplanar ultrasound examination of the thyroid demonstrating known right thyroid nodule measuring approximately 1.8 cm. A percutaneous entry point was marked on the skin. The marked site and skin around the region was prepped and draped in a sterile fashion. ??Local anesthesia was provided by the injection with 1% Lidocaine. ??Fine needle aspiration of right thyroid nodule was performed using 25 gauge needles under ultrasound guidance. 4 passes were made and the needle entries were documented. ??The samples were reviewed by on-site pathologist and deemed adequate. Post FNA ultrasound did not show any immediate complication like hemorrhage. The patient was transferred/discharged in stable condition. Procedure Note Meg Quarles MD - 04/27/2020 History: Patient with the right-sided thyroid nodule (TR 5), wasreferred for ultrasound-guided fine-needle aspiration. [employer] Supervisor: Dr. Milan Quarles, Attending Physician Anesthesia: Local anesthesia - 2 ml of 1 % lidocaine. Procedure: Limited ultrasound of thyroid. Ultrasound guided Fine needle aspiration (FNA) of right thyroid nodule. Procedure in Detail: The procedure and possible complications were explained to the patient in detail, and informed consent was obtained.The patient was placed supine on an ultrasound table. Limited multiplanar ultrasound examination of the thyroid demonstrating known right thyroid nodule measuring approximately 1.8 cm. Apercutaneous entry point was marked on the skin. The marked site and skin around the region was prepped and draped in a sterile fashion. Local anesthesia was provided by the injection with 1% Lidocaine. Fine needle aspiration of right thyroid nodule was performed using 25 gauge needles under ultrasound guidance. 4 passes were made and the needle entries were documented. The samples were reviewed byon-site pathologist and deemed adequate. Post FNA ultrasound did not show any immediate complication like hemorrhage. The patient was transferred/discharged in stable condition. Impression: Ultrasound-guided fine needle aspiration of right thyroid nodule , as described above. Dr. Milan Quarles was present and performed/supervised the entireprocedure. This report was electronically signed by MEG QUARLES M.D. on 04/27/2020 5:44 PM . Taniya Grimes MD CT ORDERABLES * XR FOOT RIGHT 3VW OR MORE (04/02/2020 12:40 PM CDT) Anatomical Region Laterality Modality Ankle / Foot Radiographic Antonieta ging 04/02/2020 1:11 PM CDT Impressions 04/02/2020 1:12 PM CDT IMPRESSION: Mild first metatarsophalangeal joint degenerative change. This report was electronically signed by NICO MEEHAN MD ??on 04/02/2020 1:12 PM . Narrative 04/02/2020 1:12 PM CDT Exam: ??XR FOOT RIGHT 3VW History: ??M79.671: Right foot pain Comparison: None. Findings: No fracture or dislocation is present. There is mild degenerative change at the first metatarsophalangeal joint with osteophytes laterally, small calcification medially, and mild soft tissue swelling. The other joint spaces are normal. Small posterior and moderate plantar calcaneal spurs are visible. Procedure Note Nico Meehan MD - 04/02/2020 Exam: XR FOOT RIGHT 3VW History: M79.671: Right foot pain Comparison: None. Findings: No fracture or dislocation is present. There is mild degenerative change at the first metatarsophalangeal joint with osteophytes laterally, small calcification medially, and mild soft tissue swelling. The other joint spaces are normal. Small posterior and moderate plantar calcaneal spurs are visible. IMPRESSION: Mild first metatarsophalangeal joint degenerative change. This report was electronically signed by NICO MEEHAN MD on04/02/2020 1:12 PM . Marylu Bajwa [employer] ROUTE CARRIER-LOCOMOTIVE MECHANIC DIAGNOSTIC IMAG ING ORDERABLES * HEPATITIS C AB SCREEN RFLX NAAT QUANT (03/07/2020 3:19 PM CDT) Hepatitis C Antibody Non-react oswaldo Non-reac tive 03/07/2020 4:28 PM CDT [facility] Comment:Hepatitis C Antibody screen indicates no serologic [...] CDT Marylu Marie DO LAB - CHEMISTRY [facility] [address] [place] [id number], [facility] [phone] * HEMOGLOBIN A1C (03/07/2020 3:19 PM CDT) Hemoglobin A1c 5.5 4.4 - 6.3 % 03/08/2020 9:49 AM CDT [facility] Estimated Average Glucose 111 mg/dL 03/08/2020 9:49 AM CDT [facility] Comment: HbA1c Interpretation: Treatment target values recommended by ADA and other clinical organizations should be used to evaluate metabolic control in patients. Treatment Target Values: Normal : < 5.7% Pre-diabetes: 5.7-6.4% Diabetes: Equal to or greater than 6.5% Reference: [place] [employer] Standards of Care in Diabetes -2014 In patients 70 years and older consider HbA1c target range of 7.0-7.5% Reference: ??Diabetes Mellitus in Older People: Position Statement on behalf of the International Association of Gerontology and Geriatrics (IAGG), the Diabetes Working Democrat for Older People (EDWPOP), and the International Task Force of Experts in Diabetes. ??Jus Blackman, et al. J [place] [employer]. 2012 Test results diagnostic of diabetes should be repeated for confirmation. The Sebia Capillary 2 assay for the measurement of HbA1c is a National Glycohemoglobin Standardization Program (NGSP)certified method. Blood BLOOD SPECIMEN / Unknown Lab Venipuncture / Unknown 03/07/2020 3:19 PM CDT 03/07/2020 3:43 PM CDT Marylu Marie DO LAB - CHEMISTRY [facility] Organization Address [facility]/State/[facility] Co de Phone Number [facility] [address] [id number], [facility] [phone] * LIPID PROFILE (03/07/2020 3:19 PM CDT) Cholesterol Total 150 <200 mg/dL 03/07/2020 4:12 PM CDT [facility] HDL 51 >40 mg/dL 03/07/2020 4:12 PM CDT [facility] Comment: ATP III Classification of HDL Cholesterol: ? <40 mg/dL: ??Considered a major risk factor. ? >60 mg/dL: ??Considered a negative risk factor. ? LDL Calculated 80 <100 mg/dL 03/07/2020 4:12 PM CDT [facility] Comment: ATP III Classification of LDL Cholesterol: ?<100 mg/dL: ??Optimal ? 100 - 129 mg/dL: ??Near Optimal/Above Optimal ? 130 - 159 mg/dL: ??Borderline High ? 160 - 189 mg/dL: ??High ?>190 mg/dL: ??Very High ? Triglycerides 93 <150 mg/dL 03/07/2020 4:12 PM CDT [facility] Comment: ATP III Classification of Triglycerides: ?<150 mg/dL: ??Normal ? 150 - 199 mg/dL: ??Borderline High ? 200 - 400 mg/dL: ??High ?>500 mg/dL: ??Very High Blood BLOOD SPECIMEN / Unknown Lab Venipuncture / Unknown 03/07/2020 3:19 PM CDT 03/07/2020 3:45 PM CDT Marylu Marie DO LAB - CHEMISTRY [facility] Organization Address [facility] Co de Phone Number [address] [phone], [facility] [phone] * US THYROID (03/07/2020 3:06 PM CDT) Anatomical Region Laterality Modality Chest Ultrasound 03/07/2020 2:5 8 PM CDT Impressions 03/12/2020 9:04 AM CDT IMPRESSION: 1.3 cm right lobe nodule, category TR 4 (moderately suspicious). Recommend follow-up given its size. 1.8 cm right lobe nodule, category TR5 (highly suspicious). Recommend fine-needle aspiration. 1.0 cm right lobe nodule, category TR 4 (moderately suspicious). Recommend follow-up given its size. 1.0 cm left lobe nodule, category TR 4 (moderately suspicious). Recommend follow-up given its size. 0.6 cm left lobe nodule, category TR 4 (moderately suspicious). No follow-up is needed given its size. Dictated by Kendall Quiroz MD (Artificial Plastic Eye Maker) I, Dr. RU BAILEY M.D. have personally reviewed and interpreted this examination/study. This report was electronically signed by RU BAILEY M.D. ??on 03/12/2020 9:04 AM . Narrative 03/12/2020 9:04 AM CDT EXAMINATION: Thyroid sonogram HISTORY: E04.1: Thyroid nodule COMPARISON: No prior study is available for comparison at the time of this dictation. FINDINGS: Right thyroid lobe: 4.2 x 2.5 x 1.8 cm Left thyroid lobe: 4.0 x 1.4 x 1.2 cm Isthmus: 5 mm There are 3 nodules in the right lobe of the thyroid: The first nodule is a well-circumscribed, hypoechoic nodule with scattered microcalcifications and a calcified anterior rim, measuring 1 x 1 x 1.3 cm in the anterior right thyroid lobe; this is a TR 4 nodule(image [id number]). The second nodule is lobulated, markedly hypoechoic, measuring 1.8 x 1.5 x 1.3 cm; this is a TR 5 nodule, which is highly suspicious (image [id number]). The third nodule is well-circumscribed, hypoechoic, measuring 1 x 0.8 x 0.5 cm; this is a TR 2 nodule, which is nonsuspicious (image [id number]). There are 2 nodules in the left lobe of the thyroid: The first is a well-circumscribed hypoechoic with calcifications, measuring approximately 0.9 x 0.8 x 0.5 cm; this is a TR 4 nodule, recommend short-term follow-up (image [id number]). The second nodule is well-circumscribed, hypoechoic, solid nodule, measuring 0.6 x 0.6 x 0.3 cm; this is a TR 4 nodule, which is not suspicious (image [id number]). The isthmus is mildly thickened. Vascularity of the thyroid is normal. Procedure Note Ru Bailey MD - 03/12/2020 EXAMINATION: Thyroid sonogram HISTORY: E04.1: Thyroid nodule COMPARISON: No prior study is available for comparison at the time ofthis dictation. FINDINGS: Right thyroid lobe: 4.2 x 2.5 x 1.8 cm Left thyroid lobe: 4.0 x 1.4 x 1.2 cm Isthmus: 5 mm There are 3 nodules in the right lobe of the thyroid: The first nodule is a well-circumscribed, hypoechoic nodule withscattered microcalcifications and a calcified anterior rim, measuring 1 x 1 x 1.3cm in the anterior right thyroid lobe; this is a TR 4 nodule(image [id number]). The second nodule is lobulated, markedly hypoechoic, measuring 1.8 x 1.5x 1.3 cm; this is a TR 5 nodule, which is highly suspicious (image 7168). The third nodule is well-circumscribed, hypoechoic, measuring 1 x 0.8 x 0.5 cm; this is a TR 2 nodule, which is nonsuspicious (image 8192). There are 2 nodules in the left lobe of the thyroid: The first is a well-circumscribed hypoechoic with calcifications, measuring approximately 0.9 x 0.8 x 0.5 cm; this is a TR 4 nodule, recommend short-term follow-up (image [id number]). The second nodule is well-circumscribed, hypoechoic, solid nodule, measuring 0.6 x 0.6 x 0.3 cm; this is a TR 4 nodule, which is not suspicious (image [id number]). The isthmus is mildly thickened. Vascularity of the thyroid is normal. IMPRESSION: 1.3 cm right lobe nodule, category TR 4 (moderately suspicious).Recommend follow-up given its size. 1.8 cm right lobe nodule, category TR5 (highly suspicious). Recommend fine-needle aspiration. 1.0 cm right lobe nodule, category TR 4 (moderately suspicious).Recommend follow-up given its size. 1.0 cm left lobe nodule, category TR 4 (moderately suspicious).Recommend follow-up given its size. 0.6 cm left lobe nodule, category TR 4 (moderately suspicious). No follow-up is needed given its size. Dictated by Kendall Quiroz MD (Artificial Plastic Eye Maker) I, Dr. RU BAILEY M.D. have personally reviewed and interpreted this examination/study. This report was electronically signed by RU BAILEY M.D. on 03/12/2020 9:04 AM . Marylu Marie DO US ORDERABLES * HPV DETECTION HIGH RISK LEE (11/23/2019 10:00 AM CDT) High Risk Human Papilloma Result Not Detected Not Detected 11/28/2019 3:43 PM CDT [facility] High Risk Human Papilloma Interp 11/28/2019 3:43 PM CDT [facility] Comment:High Risk Human Taurus lloma Virus was Not Detected. Pathology/Cytolo gy MISCELLANEOUS SAMPLES / Unknown 11/23/2019 10:00 AM CDT 11/24/2019 11:39 AM CDT Narrative [facility] - 11/28/2019 3:43 PM CDT [...] Dillard MD LAB - MICROB IOLOGY ORDERABLES Performing Organization Address City/State/[facility] Phone Number [facility] [address] [phone] * PAP IMAGE-GUIDED W HPV (11/23/2019 10:00 AM CDT) Case Report Gynecologic Cytology Report ? Case: [id number] ? Authorizing Provider: ??Tati pino, Lexii Ortiz, Collected: ? 11/23/2019 10:00 AM ? MD ? Ordering Location: ? [facility] ? Received: ?11/24/2019 11:39 AM ? Gynecology and Women's ? [facility] ? First Screen: ?Renata, Marcio Jackson ? Specimen: ?THINPREP - IMAGE GUIDED, Cervix/Endocervix ? 11/29/2019 10:17 AM CDT [facility] LMP n/a 11/29/2019 10:17 AM CDT [facility] Menstrual Status Postmenopausal 11/03 10:17 AM CDT [facility] Specimen Adequacy Satisfactory for evaluation, endocervical/trans formation zone component present. 11/29/2019 10:17 AM CDT [facility] Categorization Negative for intraepithelial lesion or malignancy. 11/29/2019 10:17 AM CDT [facility] Interpretation BRAZER ELECTRONIC Negative for intraepithelial lesion or malignancy. 11/29/2019 10:17 AM CDT [facility] Other Atrophic changes. 020 10:17 AM CDT [facility] Pap Footnote This specimen was evaluated by the ThinPrep Imaging System along with the an additional manual rescreening by a newsperson and/or pathologist. 11/29/2019 10:17 AM CDT [facility] Embedded Images 0 10:17 AM CDT [facility] Pathology/Cytolo gy MISCELLANEOUS SAMPLES / Unknown 11/23/2019 10:00 AM CDT 11/24/2019 11:39 AM CDT Lexii Dillard MD LAB - PATHOL OGY/CYTOLOGY ORDERABLES Performing Organization Address City/State/[facility] Co de Phone Number [facility] [address] [phone] Care Teams Shop Mechanic Relationship Specialty Start Date End Date Yaya Villatoro MD [address] [facility] [address] [place] [address] PCP - General Internal Medicine 05/04/23 Joseph Manzanares MD [address] [place] [address] Internal Medicine 04/21/23
--- OUTSIDE RECORDS SUMMARY | 2024-07-23 07:06 | XMS_ITS | Encounter Summary ---
Author Organization [facility] Health Address [address] [facility] [place] [address] Care Team Providers Care Bisque Brusher Name Role Phone Joseph Manzanares MD Unavailable Yaya Villatoro MD Primary Care Provider [phone]- [phone] Reason for Visit * Reason Onset Date Comments Concerns 07/13/2024 Encounter Details Date Type Department Care Team (Late st Contact Info) Description 07/13/2024 Telephone [facility] [place] [phone] Andria Aldana, JOSY Concerns Social History Tobacco Use Types Packs/Day Years Used Date Smoking Tobacco: Some Days Cigarettes 0.3 51 Started: 07/22/1973 Smokeless Tobacco: Current Comments:1-2 cigarettes per day current smoker Alcohol [...] Recorded Patient Health Questionnaire-2 Score 0 07/06/2024 [facility] of Occupat ional Health - Occupational Stress [...] place to sleep or slept in a long-term (including now)? No 10/02/2022 Sex and Gender Information Value Date Recorded Sex Assigned at Not on file Gender Identity Not on file Sexual Orientation Not on file documented as of this encounter Functional Status Functional Status Response Date of Assess ment Is person deaf or have serious hearing difficult y? No 10/02/2022 Is person blind or have serious difficulty seein g? No 10/02/2022 Does person have serious dif ficulty walking/climbing stairs? Yes 10/02/2022 Does person have difficulty dressing/bathing? No 10/02/2022 Does person have difficulty doing errands alone? Yes 10/02/2022 Cognitive Status Response Date of Assessm ent Does person have difficulty concentrating/remembering/making decisions? No 10/02/2022 documented as of this encounter Miscellaneous Notes * Telephone Encounter - Andria Aldana, RN - 07/13/2024 1:47 PM CST Patient calls in stating she has increased pain in her throat and difficulty swallowing, but not different than same at appointment in March. Patient was to have MBS which was not yet scheduled. Informed patient this needs to be completed so Dr. Delgado can fully evaluate. Patient verbalizes understanding and is in agreement. Pt then transferred to [facility] for scheduling A.CHAR Aldana, RN ECTOR CHIEF documented in this encounter Plan of Treatment Upcoming Encounters Date Type Department Care Team (Late st Contact Info) Description 07/25/2024 10:00 AM INSPECTOR CHIEF Office Visit [facility] - Endocrinology [address] [place] [phone] Yosi Bustamante MD [address] [place] [address] 2L [place] [address] 07/26/2024 10:00 AM INSPECTOR CHIEF Appointment [facility] [address] [place] [phone] Neri Delgado MD [address] [place] [address] 07/26/2024 10:00 AM INSPECTOR CHIEF Office Visit [facility] - ENT [address] [place] [phone] Myra Farmer, FRICTION WELDING MACHINE OPERATOR [address] [place] [address] 2L [place] [phone] 07/26/2024 11:15 AM INSPECTOR CHIEF [facility] [address] [place] [phone] Neri Delgado MD [address] [place] [address] 08/02/2024 2:20 PM INSPECTOR CHIEF Appointment [facility] [address] [place] [address] 08/02/2024 3:00 PM INSPECTOR CHIEF Office Visit [facility] - Hematology/Oncology [address] [place] [phone] Remi Beckett MD [address] [place] [phone] 08/18/2024 1:45 PM INSPECTOR CHIEF [facility] [address] [place] [phone] Neri Delgado MD [address] [place] [phone] documented as of this encounter Visit Diagnoses Not on filedocumented in this encounter Care Teams Bisque Brusher Relationship Specialty Start Date End Date Yaya Villatoro MD [address] [place] [phone] PCP - General Internal Medicine 05/04/23 Joseph Manzanares MD [address] [place] [phone] Internal Medicine 04/21/23 documented as of this encounter
--- OUTSIDE RECORDS SUMMARY | 2024-07-23 07:06 | XMS_ITS | Encounter Summary ---
Author Organization [facility] Health Address [address] [facility] [place] [address] Care Team Providers Care Natural Resource Specialist Name Role Phone Joseph Manzanares MD Unavailable Yaya Villatoro MD Primary Care Provider [phone]- [phone] Encounter Details Date Type Department Care Team (Latest Contact Info) Description 06/15/2024 Travel Social History Tobacco Use Types Packs/Day Years [...] at all 10/02/2022 PHQ-2 Answer Date Recorded PHQ2 TOTAL SCORE 1 11/25/2022 [facility] of Occupat ional Health - Occupational Stress [...] place to sleep or slept in a care home (including now)? No 10/02/2022 Sex and Gender [...] No 10/02/2022 documented as of this encounter Plan of Treatment Upcoming Encounters Date Type Department Care Team (Late st Contact Info) Description 07/25/2024 10:00 AM TRAVERSE ROD ASSEMBLER Office [facility] - Endocrinology [address] [place] [phone] Yosi Bustamante MD [address] [place] [address] 2L [place] [address] 07/26/2024 10:00 AM TRAVERSE ROD ASSEMBLER Appointment [facility] [address] [place] [phone] Neri Delgado MD [address] [place] [address] 07/26/2024 10:00 AM TRAVERSE ROD ASSEMBLER Office Visit [facility] - ENT [address] [place] [phone] Myra Farmer, SHACKLER [address] [place] [address] 2L [place] [phone] 07/26/2024 11:15 AM TRAVERSE ROD ASSEMBLER Office Visit [facility] - ENT [address] [place] [phone] Neri Delgado MD [address] [place] [address] 08/02/2024 2:20 PM TRAVERSE ROD ASSEMBLER Appointment [facility] [address] [place] [address] 08/02/2024 3:00 PM TRAVERSE ROD ASSEMBLER Office Visit [facility] - Hematology/Oncology [address] [place] [phone] Remi Beckett MD [address] [place] [phone] 08/18/2024 1:45 PM TRAVERSE ROD ASSEMBLER Office Visit [facility] - ENT [address] [place] [address] Neri Delgado MD [address] [place] [address] documented as of this encounter Visit Diagnoses Not on filedocumented in this encounter Care Teams Natural Resource Specialist Relationship Specialty Start Date End Date Yaya Villatoro MD [address] [phone] PCP - General Internal Medicine 05/04/23 Joseph Manzanares MD [address] [place] [phone] Internal Medicine 04/21/23 documented as of this encounter
--- OUTSIDE RECORDS SUMMARY | 2024-07-23 07:06 | XMS_ITS | Encounter Summary ---
Author Organization [facility] Health Address [address] [facility] [place] [address] Care Team Providers Care Outreach And Education Social Worker Name Role Phone Joseph Manzanares MD Unavailable Yaya Villatoro MD Primary Care Provider [phone]- [phone] Reason for Referral * Radiology Services (Routine) - Closed Specialty Diagnoses / Procedures Referred By Yuan robins Referred To Contact Hematology-Oncology Diagnoses Papillary carcinoma of thyroid (HCC) Procedures CT Chest Abdomen Pelvis W Remi Jefferson MD [address] [place] [address] Referral ID Status Reason Start Date Expiration Date Visits Re quested Visits Authorized [id number] Closed 05/31/2024 05/31/2025 1 1 PATIONAL THERAPY PROFESSOR Reason for Visit * Radiology Services (Routine) - Closed Specialty Diagnoses / Procedures Referred By Yuan robins Referred To Contact Hematology-Oncology Diagnoses Papillary carcinoma of thyroid (HCC) Procedures CT Chest Abdomen Pelvis W Remi Jefferson MD [address] [place] [address] Referral ID Status Reason Start Date Expiration Date Visits Re quested Visits Authorized [id number] Closed 05/31/2024 05/31/2025 1 1 Encounter Details Date Type Department Care Team (Latest Contact Info) Description 07/07/2024 11:23 AM OCCUPATIONAL THERAPY PROFESSOR - 07/07/2024 1:03 PM OCCUPATIONAL THERAPY PROFESSOR Hospital Encounter [facility] SCAN [address] [place] [phone] Remi Beckett MD [address] [place] [address] Discharge Disposition: Home or Self Care Social History Tobacco Use Types Packs/Day Years [...] Recorded Patient Health Questionnaire-2 Score 0 07/06/2024 [facility] of Occupat ional Health - Occupational Stress [...] place to sleep or slept in a mcc (including now)? No 10/02/2022 Sex and Gender [...] No 10/02/2022 documented as of this encounter Medications at Time of Discharge Medication Sig Dispensed Refills Start Date End Date acetaminophen (Tylenol) 500 MG tablet Take 2 (two) tablets by mouth Every 6 Hours (03,09,15,21) atorvastatin (Lipitor) 40 MG tabletIndications:Hype rlipidemia, unspecified hyperlipidemia type TAKE 1 TABLET BY MOUTH EVERYDAY AT BEDTIME 90 tablet 1 04/21/2023 buPROPion SR 12hr (Wellbutrin-SR) 100 MG tablet Take 1 (one) tablet by mouth 2 times daily 08/28/2022 calcium 500 mg tabletIndications:[place] stasis to bone (HCC) Take 1 (one) tablet by mouth daily with food 30 tablet 06/15/2024 celecoxib (CeleBREX) 200 MG capsuleIndications:Nicole stahl osteoarthritis of left hip Take 1 (one) capsule by mouth once daily 90 capsule 3 10/27/2022 clobetasol (Temovate) 0.05 % ointment Apply to affected area 2 times daily as needed cyclobenzaprine (Flexeril) 5 MG tablet Take 1 (one) tablet by mouth 3 times daily as needed 90 tablet 1 11/19/2022 diphenhydrAMINE/maalox /lidocaine visc 1:1:1 (Magic Mouthwash) suspensionIndications: Oropharyngeal dysphagia,Chronic pain after cancer treatment Swish and swallow 10 mL every 6 hours as needed 1120 mL 5 02/25/2024 famotidine (PEPCID) 20 MG tablet Take 1 (one) tablet by mouth 2 times daily as needed 05/27/2020 fluticasone propionate (Flonase) 50 MCG/ACT nasal sprayIndications:Aller gic rhinitis, unspecified seasonality, unspecified trigger SPRAY 2 SPRAYS INTO EACH NOSTRIL EVERY DAY 16 g 1 06/01/2023 gabapentin (Neurontin) 300 MG capsuleIndications:Nicole stahl osteoarthritis of left hip Take 1 (one) capsule by mouth 3 times daily 90 capsule 5 11/19/2022 hydrOXYzine HCl (Atarax) 25 MG tablet Take 1 (one) tablet to 2 (two) tablets by mouth as needed 07/15/2023 ibuprofen (Motrin) 200 MG tablet Take 4 (four) tablets by mouth 4 times daily Lenvima, 14 MG Daily Dose, 10 & 4 MG capsuleIndications:Pap illary carcinoma of thyroid (HCC) TAKE 1 CAPSULE (10MG) AND 1 CAPSULE (4MG) ONCE DAILY FOR A TOTAL OF 14MG 60 Each 2 07/06/2024 levothyroxine (Synthroid) 112 MCG tabletIndications:Hypo thyroidism,Malignant Neoplasm of Thyroid Take 1 (one) tablet by mouth daily before breakfast Reasons: Cancer of Thyroid, Underactive Thyroid 100 tablet 3 10/25/2023 10/24/2024 naloxone HCl (Narcan) 4 MG/0.1ML nasal spray Mcgee 1 (one) spray into the nose as needed ondansetron (Zofran) 8 MG tabletIndications:Canc er Chemotherapy-Induced Nausea and Vomiting Take one tablet by mouth once a day 1 hour before anticancer drug and one tablet every 8 hours as needed for breakthrough nausea/vomiting. Reasons: Nausea and Vomiting caused by Cancer Chemotherapy 100 tablet 11 12/10/2023 oxybutynin CR 24hr (Ditropan-XL) 5 MG tablet Take 1 (one) tablet by mouth once daily 90 tablet 4 06/10/2022 pantoprazole EC (Protonix) 40 MG tabletIndications:Justo roesophageal reflux disease, unspecified whether esophagitis present TAKE ONE TABLET BY MOUTH ONCE DAILY FOR STOMACH 90 tablet 02/03/2023 PARoxetine (PAXIL) 40 MG tablet Take 1 (one) tablet by mouth once daily 2 11/14/2016 prochlorperazine (Compazine) 10 MG tabletIndications:Taurus llary carcinoma of thyroid (HCC) Take 1 (one) tablet by mouth every 6 hours as needed for Nausea/Vomiting 30 tablet 11 12/10/2023 traZODone (DESYREL) 50 MG tablet Take 1 (one) tablet by mouth at bedtime 06/25/2020 vitamin D3 (Cholecalciferol) 10 MCG (400 UNIT) tabletIndications:[place] stasis to bone (HCC) Take 1 (one) tablet by mouth once daily 30 tablet 06/15/2024 documented as of this encounter Plan of Treatment Upcoming Encounters Date Type Department Care Team (Late st Contact Info) Description 07/25/2024 10:00 AM OCCUPATIONAL THERAPY PROFESSOR Office Visit [facility] - Endocrinology [address] [place] [phone] Yosi Bustamante MD [address] [place] [address] [place] [address] 07/26/2024 10:00 AM OCCUPATIONAL THERAPY PROFESSOR Appointment [facility] [address] [place] [phone] Neri Delgado MD [address] [place] [address] 07/26/2024 10:00 AM OCCUPATIONAL THERAPY PROFESSOR Office Visit [facility] - ENT [address] [place] [phone] Myra Farmer, DISABILITY PROGRAM NAVIGATOR [address] [place] [address] [place] [phone] 07/26/2024 11:15 AM OCCUPATIONAL THERAPY PROFESSOR Office Visit [facility] - ENT [address] [place] [phone] Neri Delgado MD [address] [place] [address] 08/02/2024 2:20 PM OCCUPATIONAL THERAPY PROFESSOR Appointment [facility] [address] [place] [phone] 08/02/2024 3:00 PM OCCUPATIONAL THERAPY PROFESSOR Office Visit [facility] - Hematology/Oncology [address] [place] [phone] Remi Beckett MD [address] [place] [phone] 08/18/2024 1:45 PM OCCUPATIONAL THERAPY PROFESSOR Office Visit [facility] - ENT [address] [place] [phone] Neri Delgado MD [address] [place] [address] documented as of this encounter Procedures Procedure Name Priority Date/Time Associated Diagnosis Comments CT CHEST ABDOMEN PELVIS W CONT Routine 07/07/2024 12:08 PM OCCUPATIONAL THERAPY PROFESSOR Papillary carcinoma of thyroid (HCC) documented in this encounter Results * CT Chest Abdomen Pelvis W Cont (07/07/2024 12:08 PM OCCUPATIONAL THERAPY PROFESSOR) Anatomical Region Laterality Modality Chest, Abdomen, Pelvis Computed Tomography 07/07/2024 1:01 PM OCCUPATIONAL THERAPY PROFESSOR Impressions 07/07/2024 4:00 PM OCCUPATIONAL THERAPY PROFESSOR Impression: 1.Changes of total thyroidectomy. 2.Minimal enhancement around the gallbladder fundus, this can be seen in adenomyomatosis. Right upper quadrant ultrasound may be obtained for further evaluation if clinically indicated. 3.Partially imaged osseous changes in the lower cervical and upper thoracic spine at site of treated metastasis are better evaluated on MRI from 11/23/2023. > Dictated by Donald NATH, [facility] ??(logistics vice president). Vaishali Mckeon MD have personally reviewed and interpreted this examination/study. > Interpreting Provider: Vaishali Herrera MD on 07/07/2024 4:00 PM Narrative 07/07/2024 4:00 PM OCCUPATIONAL THERAPY PROFESSOR PROCEDURE: ??CT CHEST ABDOMEN PELVIS W CONT, DATE/TIME OF EXAM: ??07/07/2024 12:09 PM, LOCATION ??[facility] INDICATION: C73: Papillary carcinoma of [...] changes of the left hip joint with [id number] contact. Partially imaged posterior spinal fusion hardware. Bone changes in the left aspect of partially imaged C7 at the site of treated metastasis. Soft tissues: Normal. Procedure Note Lorena Herrera MD - 07/07/2024 PROCEDURE: CT CHEST ABDOMEN PELVIS W CONT, DATE/TIME OF EXAM: 07/07/2024 12:09 PM, LOCATION [facility] INDICATION: C73: Papillary carcinoma of [...] osteoarthritic changes ofthe left hip joint with [id number] contact. Partially imaged posteriorspinal fusion hardware. Bone [...] MRI from 11/23/2023. > Dictated by Donald [facility], [facility] (logistics vice president). Srinivas Mckeon. Mikaela Herrera MD have personally reviewed and interpreted this examination/study. > Interpreting Provider: Vaishali Herrera MD on 07/07/2024 4:00 PM Remi Beckett MD CT ORDERABLES documented in this encounter Visit Diagnoses Diagnosis Papillary carcinoma of thyroid (HCC) Malignant neoplasm of thyroid gland documented in this encounter Administered Medications Inactive Administered Medications - up to 3 most recent administrations Medication Order MAR Action Action Date Dose Rate Site iopamidol (Isovue 370) 76 % contrast Intravenous, CONTRAST ONCE, Starting on Wed07/07/24 at 1124, Until 07/08/24 at 0131 $ Given - Contrast 07/07/2024 11:46 AM OCCUPATIONAL THERAPY PROFESSOR 100 mL documented in this encounter Care Teams Outreach And Education Social Worker Relationship Specialty Start Date End Date Yaya Villatoro MD [address] [phone] PCP - General Internal Medicine 05/04/23 Joseph Manzanares MD [address] [place] [phone] Internal Medicine 04/21/23 documented as of this encounter
--- OUTSIDE RECORDS SUMMARY | 2024-07-23 07:06 | XMS_ITS | Encounter Summary ---
Author Organization [facility] Health Address [address] [facility] [place] [address] Care Team Providers Care Medical Technologist Chief Name Role Phone Joseph Manzanares MD Unavailable Yaya Villatoro MD Primary Care Provider [phone]- [phone] Reason for Visit * Reason Comments Refill Request Encounter Details Date Type Department Care Team (Late st Contact Info) Description 07/05/2024 Refill [facility] - Hematology/Oncology [address] [place] [address] Remi Beckett MD [address] [place] [address] Refill Request Social History Tobacco Use Types Packs/Day Years [...] Recorded Patient Health Questionnaire-2 Score 0 07/06/2024 [facility] [place] of Occupat ional Health - Occupational Stress [...] st Contact Info) Description 07/25/2024 10:00 AM BATHHOUSE KEEPER Office Visit [facility] - Endocrinology [address] [place] [phone] Yosi Bustamante MD [address] [place] [address] 2L [place] [address] 07/26/2024 10:00 AM BATHHOUSE KEEPER Appointment [facility] [address] [place] [address] Neri Delgado MD [address] [place] [address] 07/26/2024 10:00 AM BATHHOUSE KEEPER Office Visit [facility] - ENT [address] [place] [phone] Myra Farmer, PATENTED HOGSHEAD ASSEMBLER [address] [place] [address] 2L [place] [address] 07/26/2024 11:15 AM BATHHOUSE KEEPER Office Visit [facility] - ENT [address] [place] [phone] Neri Delgado MD [address] [place] [address] 08/02/2024 2:20 PM BATHHOUSE KEEPER Appointment [facility] [address] [place] [address] 08/02/2024 3:00 PM BATHHOUSE KEEPER Office Visit [facility] - Hematology/Oncology [address] [place] [address] Reim Beckett MD [address] [place] [address] 08/18/2024 1:45 PM BATHHOUSE KEEPER Office Visit [facility] - ENT [address] [place] [phone] Neri Delgado MD [address] [place] [address] documented as of this encounter Visit Diagnoses Diagnosis Papillary carcinoma of thyroid (HCC) Malignant neoplasm of thyroid gland documented in this encounter Care Teams Medical Technologist Chief Relationship Specialty Start Date End Date Yaya Villatoro MD [address] [place] [phone] PCP - General Internal Medicine 05/04/23 Joseph Manzanares MD [address] [place] [phone] Internal Medicine 04/21/23 documented as of this encounter
--- OUTSIDE RECORDS SUMMARY | 2024-07-23 07:06 | XMS_ITS | Encounter Summary ---
Author Organization [facility] Health Address [address] [facility] [place] [address] Care Team Providers Care Automatic Stacker Name Role Phone Joseph Manzanares MD Unavailable Yaya Villatoro MD Primary Care Provider [phone]- [phone] Encounter Details Date Type Department Care Team (Late st Contact Info) Description 04/21/2024 Orders Only [facility] - Hematology/Oncology [address] [place] [address] Remi Beckett MD [address] [place] [address] Social History Tobacco Use Types Packs/Day Years [...] Date Recorded PHQ2 TOTAL SCORE 1 11/25/2022 [facility] of Occupat ional Health - Occupational Stress [...] place to sleep or slept in a retirement (including now)? No 10/02/2022 Sex and Gender [...] No 10/02/2022 documented as of this encounter Progress Notes * Remi Beckett MD - 04/21/2024 9:30 AM CDT Discussed with Dr. Bustamante. Will initiate denosumab 120 mg subcutaneously every 4 weeks as bone protective strategy for metastasis to bone. Dental clearance prior. Labs (CMP, vitamin D and magnesium) prior. documented in this encounter Plan of Treatment Upcoming Encounters Date Type Department Care Team (Late st Contact Info) Description 07/25/2024 10:00 AM STRUCTURAL RIGGER Office Visit [facility] - Endocrinology [address] [place] [phone] Yosi Bustamante MD [address] [place] [address] 2L [place] [address] 07/26/2024 10:00 AM STRUCTURAL RIGGER Appointment [facility] [address] [place] [address] Neri Delgado MD [address] [place] [address] 07/26/2024 10:00 AM STRUCTURAL RIGGER Office Visit [facility] - ENT [address] [place] [phone] Myra Farmer, PINEAPPLE PLANTATION MANAGER [address] [place] [address] 2L [place] [address] 07/26/2024 11:15 AM STRUCTURAL RIGGER Office Visit [facility] - ENT [address] [place] [phone] Neri Delgado MD [address] [place] [address] 08/02/2024 2:20 PM STRUCTURAL RIGGER Appointment [facility] [address] [place] [address] 08/02/2024 3:00 PM STRUCTURAL RIGGER Office Visit [facility] - Hematology/Oncology [facility] [place] [phone] Remi Beckett MD [address] [place] [phone] 08/18/2024 1:45 PM STRUCTURAL RIGGER [facility] [address] [place] [phone] Neri Delgado MD [address] [place] [address] documented as of this encounter Visit Diagnoses Not on filedocumented in this encounter Care Teams Automatic Stacker Relationship Specialty Start Date End Date Yaya Villatoro MD [address] [place] [phone] PCP - General Internal Medicine 05/04/23 Joseph Manzanares MD [address] [place] [phone] Internal Medicine 04/21/23 documented as of this encounter
--- OUTSIDE RECORDS SUMMARY | 2024-07-23 07:06 | XMS_ITS | Encounter Summary ---
Author Organization [facility] Health Address [address] [facility] [place] [address] Care Team Providers Care Manager Business Operations Name Role Phone Joseph Manzanares MD Unavailable Yaya Villatoro MD Primary Care Provider [phone]- [phone] Reason for Visit * Radiology Services (Routine) - Closed Specialty Diagnoses / Procedures Referred By Yuan robins Referred To Contact MRI Diagnoses Metastasis to bone (HCC) Secondary malignant neoplasm of bone (HCC) Procedures MRI Cervical Spine Wwo Cont Marcio Mcintosh MD [address] [place] [address] [facility] Mri [address] [place] [address] Referral ID Status Reason Start Date Expiration Date Visits Re quested Visits Authorized [id number] Closed 06/06/2024 09/04/2024 1 1 Encounter Details Date Type Department Care Team (Latest Contact Info) Description 07/06/2024 11:56 AM RADIOISOTOPE TECHNICIAN - 07/06/2024 1:59 PM [facility] Hospital Encounter [facility] Health Imaging Services - MRI [address] [place] [address] Marcio Mcintosh MD [address] [place] [address] Radiation Oncology Discharge Disposition: Home or Self Care Social [...] Recorded Patient Health Questionnaire-2 Score 0 07/06/2024 [facility] [place] of Occupat ional Health - Occupational Stress [...] place to sleep or slept in a jail (including now)? No 10/02/2022 Sex and Gender [...] 2 times daily 08/28/2022 calcium 500 mg tabletIndications:[place] stasis to bone (HCC) Take 1 (one) tablet by mouth daily with food 30 tablet 06/15/2024 celecoxib (CeleBREX) 200 MG capsuleIndications:Nicole favio osteoarthritis of left hip Take 1 (one) [...] 1 06/01/2023 gabapentin (Neurontin) 300 MG capsuleIndications:Nicole favio osteoarthritis of left hip Take 1 (one) [...] naloxone HCl (Narcan) 4 MG/0.1ML nasal spray Marcella 1 (one) spray into the nose as [...] vitamin D3 (Cholecalciferol) 10 MCG (400 UNIT) tabletIndications:[place] stasis to bone (HCC) Take 1 (one) tablet by mouth once daily 30 tablet 06/15/2024 documented as of this encounter Plan of Treatment Upcoming Encounters Date Type Department Care Team (Late st Contact Info) Description 07/25/2024 10:00 AM RADIOISOTOPE TECHNICIAN [facility] [address] [place] [phone] Yosi Bustamante MD [address] [place] [address] 2L [place] [address] 07/26/2024 10:00 AM RADIOISOTOPE TECHNICIAN Appointment [facility] [address] [place] [address] Neri Delgado MD [address] [place] [address] 07/26/2024 10:00 AM RADIOISOTOPE TECHNICIAN Office Visit [facility] - ENT [address] [place] [phone] Myra Farmer, TELEVISION NEWS PHOTOGRAPHER [address] [place] [address] 2L [place] [phone] 07/26/2024 11:15 AM RADIOISOTOPE TECHNICIAN Office Visit [facility] - ENT [address] [place] [phone] Neri Delgado MD [address] [place] [address] 08/02/2024 2:20 PM RADIOISOTOPE TECHNICIAN Appointment [facility] [address] [place] [address] 08/02/2024 3:00 PM RADIOISOTOPE TECHNICIAN Office Visit [facility] - Hematology/Oncology [address] [place] [phone] Remi Beckett MD [address] [place] [phone] 08/18/2024 1:45 PM RADIOISOTOPE TECHNICIAN Office Visit [facility] - ENT [address] [place] [phone] Neri Delgado MD [address] [place] [address] documented as of this encounter Procedures Procedure Name Priority Date/Time Associated Diagnosis Comments MRI CERVICAL SPINE WWO CONT Routine 07/06/2024 1:17 PM RADIOISOTOPE TECHNICIAN Metastasis to bone (HCC) Secondary malignant neoplasm of bone (HCC) documented in this encounter Results * MRI Cervical Spine Wwo Cont (07/06/2024 1:17 PM RADIOISOTOPE TECHNICIAN) Anatomical Region Laterality Modality Spine Magnetic Resonan ce 07/06/2024 3:40 PM RADIOISOTOPE TECHNICIAN Impressions 07/07/2024 6:34 AM RADIOISOTOPE TECHNICIAN IMPRESSION: 1. 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 No definite evidence of severe central canal stenosis or intramedullary tumor is seen. IMPRESSION: Normal cervical spine MRI performed without and with IV contrast. 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 documented in this encounter Administered Medications Inactive Administered Medications - up to 3 most recent administrations Medication Order MAR Action Action Date Dose Rate Site gadoterate meglumine (Dotarem/Clariscan) injection Intravenous, CONTRAST ONCE, Starting on Josi 07/06/24 at 1238, Until Wed07/07/24 at 0132 $ Given - Contrast 07/06/2024 1:01 PM RADIOISOTOPE TECHNICIAN 10 mL documented in this encounter Care Teams Manager Business Operations Relationship Specialty Start Date End Date Yaya Villatoro MD [address] [facility] [address] [place] [phone] PCP - General Internal Medicine 05/04/23 Joseph Manzanares MD [address] [place] [phone] Internal Medicine 04/21/23 documented as of this encounter
--- OUTSIDE RECORDS SUMMARY | 2024-07-23 07:06 | XMS_ITS | Encounter Summary ---
Author Organization [facility] Address [address] [place] [address] Care Team Providers Care Systems Integration Analyst Name Role Phone Joseph Manzanares MD Unavailable Yaya Villatoro MD Primary Care Provider [phone] Reason for Visit * Consult, Test & Treat (Routine) - Open Specialty Diagnoses / Procedures Referred By Contac t Referred To Contact Hematology and Oncology / Oncology-Medical Diagnoses Secondary malignant neoplasm of bone (HCC) Yaya Villatoro MD [address] [address] Remi Beckett MD [address] [place] [address] Referral ID Status Reason Start Date Expiration Date Visits Re quested Visits Authorized [id number] Open 06/13/2024 12/12/2024 1 1 Encounter Details Date Type Department Care Team (Latest Contact Info) Description 06/15/2024 3:00 PM MARINE ENGINE MECHANIC Office Visit [facility] - Hematology/Oncology [address] [place] [address] Remi Beckett MD [address] [place] [address] Papillary carcinoma of thyroid (HCC) (Primary Dx); Metastasis to bone (HCC); Mucositis due to antineoplastic therapy; Encounter for antineoplastic chemotherapy Social History Tobacco Use Types Packs/Day Years [...] Date Recorded PHQ2 TOTAL SCORE 1 11/25/2022 [facility] - Occupational [...] place to sleep or slept in a penitentiary (including now)? No 10/02/2022 Sex and Gender Information Value Date Recorded Sex Assigned at Not on file Gender Identity Not on file Sexual Orientation Not on file documented as of this encounter Last Filed Vital Signs Vital Sign Reading Time Taken Comments Blood Pressure 129/84 06/15/2024 3:01 PM MARINE ENGINE MECHANIC Pulse 99 06/15/2024 3:01 PM MARINE ENGINE MECHANIC Temperature 36.8 ??C (98.2 ??F) 06/15/2024 3:01 PM CS T Respiratory Rate 16 06/15/2024 3:01 PM MARINE ENGINE MECHANIC Oxygen Saturation 97% 06/15/2024 3:01 PM MARINE ENGINE MECHANIC Inhaled Oxygen Concentration - - Weight 49.3 kg (108 lb 11.2 oz) 06/15/2024 3:01 PM MARINE ENGINE MECHANIC Height - - Body Mass Index 19.88 03/20/2024 2:39 PM CDT documented in this encounter Functional Status Functional Status Response [...] Progress Notes * Remi Beckett MD - 06/15/2024 3:43 PM CST HEMATOLOGY-ONCOLOGY CLINIC NOTE DATE OF VISIT: 06/15/2024 REASON FOR VISIT / CHIEF COMPLAINT: Thyroid cancer SUBJECTIVE: DIAGNOSIS: Papillary carcinoma of thyroid, stage III (pT4a pN1b cM0), diagnosed 08/19/2020, with locally recurrent/residual disease identified 02/05/2022, and distant recurrence in spine diagnosed 10/02/2022, [id number], no targetable mutations TREATMENT HISTORY: - Total thyroidectomy requiring sacrifice of right laryngeal nerve 08/19/2020, with central neck dissection, tracheal resection, esophageal muscle resection, bilateral modified radical neck dissection, and parathyroid implantation of the right deltoid - WARD 157.6 mCi I-131, 03/19/2021 - Excision of right central neck mass, 02/05/2022 - SBRT to cervical spine, 2400 cGy in 2 fractions, 09/18/2022 & 09/21/2022 - C2-T2 fusion with laminectomy for partial resection of extramedullary tumor from C3-C7, 10/02/2022 - Palliative RT to C/T spine, 3,000 cGy in 5 fractions, 10/18/2023 to 10/22/2023 - Lenvatinib, early 01/2024 to present ONCOLOGIC HISTORY: --03/07/2020: US thyroid showed right and left lobe nodules (category TR 4-5). --04/18/2020: US-FNA of right thyroid nodule: Benign follicular nodule. --07/24/2020: CT neck soft tissue with contrast: A 2.8 x 2.0 cm hypoattenuating nodule in the right lobe of the thyroid gland with mass effect on trachea, and mildly enlarged left level 3 lymph node measuring 1.4 x 2.2 cm. Also noted to have a 1 cm year-old enhancing lesion in the posterior right putamen without mass effect (follow-up brain MRI 08/17/2020 showed 1.5 x 0.9 cm poorly marginated focusin the posterior right putamen/subinsular region, with differentials including prior injury, cortical dysplasia or primary neoplasm). --08/01/2020: FNA of right thyroid nodule: Suspicious for a follicular neoplasm (TBSRTC category IV). --08/19/2020: Total thyroidectomy requiring sacrifice of right laryngeal nerve, with central neck dissection, tracheal resection, esophageal muscle resection, bilateral modified radical neck dissection, and parathyroid implantation of the right deltoid (Dr. Comer). Pathology: Papillary thyroid carcinoma involving both right and left lobes with greatest dimension 3.2 cm (multifocal papillary thyroidcarcinoma with follicular architecture in the left lobe; papillary thyroid carcinoma with tall cellfeatures and frequent follicular architecture with JADON in the right lobe, along with tumor approaching inked margins, superior and inferior tracheal margins involved by tumor, and tumor involving tracheal mucosa). 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 Submucosal tissue involved by tumor noted on excision of right superior tracheal wall. Angioinvasion, LVI and PNI present. LNs involved (largest metastatic deposit 2.4 cm, JADON; involved levels: ; right II, III and IV; left III, IV, V). Surgical stage pT4a pN1b. --08/21/2020: Thyroglobulin 192.2, thyroglobulin antibody <1.0. --11/11/2020: Thyroglobulin 0.9, thyroglobulin antibody undetectable. Followed with surveillance (TSH, T4, thyroglobulin, thyroglobulin antibody) with endocrinology. Thyroglobulin levels started to increase again 02/14/2021. --03/19/2021: WARD 157.6 mCi I-131, followed by NM thyroid whole-body scan 03/24/2021 which showed remaining functional thyroid tissue and no evidence of uptake outside the thyroid region to suggest tony or distant metastasis. --12/25/2021: PET/CT showed marked hypermetabolic activity at the thyroidectomy site concerning for residual disease, however no concerns for distant mets. --01/28/2022: CT neck with contrast showed postop changes, and 2 enhancing nodules in the thyroid bed suspicious for recurrence. --02/05/2022: Excision of right central neck mass. Palpable tumor approximately 1 cm in size overlying the right thyroid ala and cricothyroid membrane excised including overlying strap musculature (). Pathology: Recurrent/residual papillary thyroid carcinoma (1.7 cm), infiltrating skeletal muscle; margins free of malignancy. NGS: PD-L1 22C3 TPS 2% and CPS 3, TMB 6.3, pMMR/AINSLEY, no reportable treatment options, biologically relevant mutations: KEAP1, KRAS, AKT1. --03/19/2022: Thyroglobulin 71.9, thyroglobulin antibody undetectable. --08/14/2022: Thyroglobulin 629, thyroglobulin antibody undetectable. --08/18/2022: NM thyroid whole-body scan and spectroscopy showed focal uptake in the left aspect of the mid cervical spine suggestive of metastatic disease. Follow-up MRI 08/21/2022 showed corresponding osseous metastasis in the left aspect of the C5 and C6 vertebrae, with tumor extension into the epidural space and left neural foramina from C4-C5 and C6-C7 with possible abutment of the left vertebral artery; also noted to have moderate spinal canal stenosis at C5 and C6 levels with spinal cord compression. --SBRT to cervical spine, 2400 cGy in 2 fractions, 09/18/2022 & 09/21/2022 (Dr. Mcintosh). --10/02/2022: C2-T2 fusion with laminectomy for partial resection of extramedullary tumor from C3-C7(Dr. Gómez). Pathology: Metastatic papillary carcinoma. IHC: Positive for TTF-1, CK7 and very focally for thyroglobulin; negative for CK20. NGS: PD-L1 TPS<1% and CPS 10, pMMR, sample insufficient to proceed with complete testing. F/U MRI cervical spine 12/24/2022 showed postop changes and decompression of the spinal canal with residual tumor in the left C4-C5, C5-C6, and C6-C7 neural foramina. MRI cervical spine 03/25/2023 with similar findings. --11/02/2022: Thyroglobulin level decreased to 65, but started to trend up again soon after. --09/09/2023: Thyroglobulin 385, thyroglobulin antibody undetectable, TSH 0.01, T41.4. --10/01/2023: MRI cervical spine showed interval development of new lesions and ventral epidural extension of the tumor in the cervical and thoracic vertebrae, and 1 focus of STIR hyperintensity in the spinal cord at the level of C4-C5 (artifactual versus myelomalacia). --10/06/2023: PET/CT showed concerns for recurrence in T1 vertebral body and right thyroidectomy bed. There was also an indeterminate 5 mm RLL lung nodule. --10/18/2023 to 10/22/2023: Palliative RT to C/T spine, 3,000 cGy in 5 fractions. --10/21/2023: NGS on liquid biopsy: TMB 4.3, MSI high not detected, no reportable treatment options,biologically relevant mutations: KRAS, KEAP1, AKT1. 10/25/2023: Thyroglobulin 805, thyroglobulin antibody undetectable, TSH <0.01, free T4 1.4. --10/2023: Discussed with her director underwriter sales Dr. Bustamante. She is not a good candidate for repeatRAI, which also does not have good bone/COMMISSIONED SECURITY OFFICER penetration. Hence decided to initiate lenvatinib 24 mgorally once daily. --11/05/2023: Brain MRI negative for metastasis. --11/23/2023: MRI cervical spine consistent with metastatic disease involvement of the C2, C4, C5, C6 and T1 vertebral bodies, not significantly changed compared to prior. --Early 01/2024: Started on lenvatinib 24 mg once daily, that was held on 01/14/2024 for mucositis. --02/07/2024: Lenvatinib 20 mg every day was resumed. --04/17/2024: Lenvatinib held for grade 3 mucositis; plan to resume in few weeks at 14 mg daily. INTERVAL HISTORY: She presents to the clinic today for follow-up. She is feeling poorly, and symptoms include poor appetite, weight loss of 9 lbs, odynophagia, jaw/tooth pain, headaches. She has missed her scan appt. She is unable to swallow properly. Ambulating reasonably well with the help of a walker. Past Medical History: Diagnosis Date Anxiety and depression Degenerative disc disease, lumbar Disorder of thyroid mass on thyroid - right GERD (gastroesophageal reflux disease) High cholesterol HLD (hyperlipidemia) Hypocalcemia 10/14/2020 Osteoarthritis of one hip, left Other hypoparathyroidism (HCC) 10/14/2020 Postoperative hypothyroidism 10/14/2020 Psoriasis Seasonal allergies Snoring SOB (shortness of breath) 2/2 thyroid mass Thyroid cancer (HCC) 10/14/2020 Tracheal mass Past Surgical History: Procedure Laterality Date Bilateral Tubal Ligation (BTL) Cervical Fusion N/A 10/02/2022 N/A; C2-T2 fusion and decompression C3-C7 and resection extramedullary spine tumor Section ENDOSCOPY, COLON, DIAGNOSTIC no polyp ENT SURGERY N/A 08/19/2020 N/A; TOTAL THYROIDECTOMY WITH CENTRAL NECK DISSECTION, RIGHT AND LEFT NECK DISSECTIONS ENT SURGERY N/A 08/19/2020 N/A; TRACHEAL TUMOR RESECTION ENT SURGERY Right 02/05/2022 Right; EXCISION RIGHT CENTRAL NECK MASS LARYNGOSCOPY N/A 08/19/2020 N/A; DIRECT LARYNGOSCOPY WITH BIOPSY Polypectomy cervical Social History Socioeconomic History Marital status: Tobacco Use Smoking status: Some Days Current packs/day: 0.25 Average packs/day: 0.3 packs/day for 50.9 years (12.7 ttl pk-yrs) Types: Cigarettes Start date: 07/22/1973 Smokeless tobacco: Current Tobacco comments: 1-2 cigarettes per day current smoker Vaping Use Vaping status: Every Day Substance and Sexual Activity Alcohol use: No Drug use: Yes Frequency: 1.0 times per week Types: Marijuana Comment: a few puffs from a pinch hitter some days 10/01 last Sexual activity: Yes Partners: Male Social History Narrative Lives with , also current tobacco user, has COPD. 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, takes day off due to leg pain Ambulates with walker due to hip pain L Family History Problem Relation Name Age of Onset Other Mother xochilt; Status: Alive Diabetes Mother Alcohol abuse Father unknown since age 10 Status: Anxiety Disorder Sister Status: Alive Depression Sister Other Sister xochilt Arthritis Sister Diabetes Sister Alcohol abuse Daughter Status: Alive Drug Abuse Daughter Learning Disability Son Status: Alive Gout Brother step Status: Alive Diabetes Brother step Status: Alive Anxiety Disorder Sister Status: Alive Depression Sister Hypertension Sister Alcohol abuse Sister Diabetes Sister half Status: Alive None Known Sister Status: Alive Thyroid Disease Neg Hx Current Outpatient Medications Medication Sig acetaminophen (Tylenol) 500 MG tablet Take 2 (two) tablets by mouth Every 6 Hours (03,09,15,21) atorvastatin (Lipitor) 40 MG tablet TAKE 1 TABLET BY MOUTH EVERYDAY AT BEDTIME buPROPion SR 12hr (Wellbutrin-SR) 100 MG tablet Take 1 (one) tablet by mouth 2 times daily calcitriol (Rocaltrol) 0.5 MCG capsule Take 1 (one) capsule by mouth once daily Reasons: Low Amountof Calcium in the Blood calcium 500 mg tablet Take 1 (one) tablet by mouth daily with food (Patient not taking: Reported on06/15/2024) celecoxib (CeleBREX) 200 MG capsule Take 1 (one) capsule by mouth once daily (Patient not taking: Reported on 06/15/2024) clobetasol (Temovate) 0.05 % ointment Apply to affected area 2 times daily as needed cyclobenzaprine (Flexeril) 5 MG tablet Take 1 (one) tablet by mouth 3 times daily as needed diphenhydrAMINE/maalox/lidocaine visc 1:1:1 (Magic Mouthwash) suspension Swish and swallow 10 mL every 6 hours as needed (Patient not taking: Reported on 06/15/2024) famotidine (PEPCID) 20 MG tablet Take 1 (one) tablet by mouth 2 times daily as needed fluticasone propionate (Flonase) 50 MCG/ACT nasal spray SPRAY 2 SPRAYS INTO EACH NOSTRIL EVERY DAY gabapentin (Neurontin) 300 MG capsule Take 1 (one) capsule by mouth 3 times daily hydrOXYzine HCl (Atarax) 25 MG tablet Take 1 (one) tablet to 2 (two) tablets by mouth as needed ibuprofen (Motrin) 200 MG tablet Take 4 (four) tablets by mouth 4 times daily lenvatinib (Lenvima) 10 & 4 MG capsule Take one 10 mg capsule and one 4 mg capsule (14 mg total) once daily. levothyroxine (Synthroid) 112 MCG tablet Take 1 (one) tablet by mouth daily before breakfast Reasons: Cancer of Thyroid, Underactive Thyroid naloxone HCl (Narcan) 4 MG/0.1ML nasal spray [place] 1 (one) spray into the nose as needed ondansetron (Zofran) 8 MG tablet Take one tablet by mouth once a day 1 hour before anticancer drug and one tablet every 8 hours as needed for breakthrough nausea/vomiting. Reasons: Nausea and Vomiting caused by Cancer Chemotherapy oxybutynin CR 24hr (Ditropan-XL) 5 MG tablet Take 1 (one) tablet by mouth once daily pantoprazole EC (Protonix) 40 MG tablet TAKE ONE TABLET BY MOUTH ONCE DAILY FOR STOMACH PARoxetine (PAXIL) 40 MG tablet Take 1 (one) tablet by mouth once daily prochlorperazine (Compazine) 10 MG tablet Take 1 (one) tablet by mouth every 6 hours as needed for Nausea/Vomiting (Patient not taking: Reported on 03/07/2024) traZODone (DESYREL) 50 MG tablet Take 1 (one) tablet by mouth at bedtime vitamin D3 (Cholecalciferol) 10 MCG (400 UNIT) tablet Take 1 (one) tablet by mouth once daily (Patient not taking: Reported on 06/15/2024) No current facility-administered medications for this visit. ALLERGIES: Allergies Allergen Reactions Kiwi Extract Anaphylaxis ONCOLOGIC DETAILS: Cancer Staging Papillary carcinoma of thyroid (HCC) Staging form: Thyroid - Differentiated, AJCC 8th Edition - Pathologic: Stage III (pT4a, pN1b, cM0, Age at diagnosis: >= 55 years) - Signed by Remi Beckett MD on 10/26/2023 Oncology History Papillary carcinoma of thyroid (HCC) 07/24/2020 Imaging --07/24/2020: CT neck soft tissue with contrast: A 2.8 x 2.0 cm hypoattenuating nodule in the right lobe of the thyroid gland with mass effect on trachea, and mildly enlarged left level 3 lymph node measuring 1.4 x 2.2 cm. Also noted to have a 1 cm year-old enhancing lesion in the posterior right putamen without mass effect (follow-up brain MRI 08/17/2020 showed 1.5 x 0.9 cm poorly marginated focusin the posterior right putamen/subinsular region, with differentials including prior injury, cortical dysplasia or primary neoplasm). 08/01/2020 Biopsy --08/01/2020: FNA of right thyroid nodule: Suspicious for a follicular neoplasm (TBSRTC category IV). 08/19/2020 Surgery --08/19/2020: Total thyroidectomy requiring sacrifice of right laryngeal nerve, with central neck dissection, tracheal resection, esophageal muscle resection, bilateral modified radical neck dissection, and parathyroid implantation of the right deltoid (Dr. Comer). Pathology: Papillary thyroid carcinoma involving both right and left lobes with greatest dimension 3.2 cm (multifocal papillary thyroidcarcinoma with follicular architecture in the left lobe; papillary thyroid carcinoma with tall cellfeatures and frequent follicular architecture with JADON in the right lobe, along with tumor approaching inked margins, superior and inferior tracheal margins involved by tumor, and tumor involving tracheal mucosa). 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 Submucosal tissue involved by tumor noted on excision of right superior tracheal wall. Angioinvasion, LVI and PNI present. LNs involved (largest metastatic deposit 2.4 cm, JADON; involved levels: ; right II, III and IV; left III, IV, V). Surgical stage pT4a pN1b. 08/19/2020 Initial Diagnosis Papillary carcinoma of thyroid (HCC) 03/19/2021 - Radiation --03/19/2021: WARD 157.6 mCi I-131, followed by NM thyroid whole-body scan 03/24/2021 which showed remaining functional thyroid tissue and no evidence of uptake outside the thyroid region to suggest tony or distant metastasis. 12/25/2021 Imaging --12/25/2021: PET/CT showed marked hypermetabolic activity at the thyroidectomy site concerning for residual disease, however no concerns for distant mets. --01/28/2022: CT neck with contrast showed postop changes, and 2 enhancing nodules in the thyroid bed suspicious for recurrence. 02/05/2022 Surgery --02/05/2022: Excision of right central neck mass. Palpable tumor approximately 1 cm in size overlying the right thyroid ala and cricothyroid membrane excised including overlying strap musculature (). Pathology: Recurrent/residual papillary thyroid carcinoma (1.7 cm), infiltrating skeletal muscle; margins free of malignancy. 08/18/2022 Imaging --08/18/2022: NM thyroid whole-body scan and spectroscopy showed focal uptake in the left aspect of the mid cervical spine suggestive of metastatic disease. Follow-up MRI 08/21/2022 showed corresponding osseous metastasis in the left aspect of the C5 and C6 vertebrae, with tumor extension into the epidural space and left neural foramina from C4-C5 and C6-C7 with possible abutment of the left vertebral artery; also noted to have moderate spinal canal stenosis at C5 and C6 levels with spinal cord compression. 09/18/2022 - Radiation --SBRT to cervical spine, 2400 cGy in 2 fractions, 09/18/2022 & 09/21/2022 (Dr. Mcintosh). 10/02/2022 Surgery --10/02/2022: C2-T2 fusion with laminectomy for partial resection of extramedullary tumor from C3-C7(Dr. Gómez). Pathology: Metastatic papillary carcinoma. IHC: Positive for TTF-1, CK7 and very focally for thyroglobulin; negative for CK20. F/U MRI cervical spine 12/24/2022 showed postop changes and decompression of the spinal canal with residual tumor in the left C4-C5, C5-C6, and C6-C7 neural foramina. MRI cervical spine 03/25/2023 with similar findings. 10/01/2023 Imaging --10/01/2023: MRI cervical spine showed interval development of new lesions and ventral epidural extension of the tumor in the cervical and thoracic vertebrae, and 1 focus of STIR hyperintensity in the spinal cord at the level of C4-C5 (artifactual versus myelomalacia). 10/06/2023 Imaging --10/06/2023: PET/CT showed concerns for recurrence in T1 vertebral body and right thyroidectomy bed. There was also an indeterminate 5 mm RLL lung nodule. 10/18/2023 - Radiation --10/18/2023 to 10/22/2023: Palliative RT to C/T spine, 3,000 cGy in 5 fractions. 10/2023 - Chemotherapy Started on lenvatinib 24 mg orally once daily. 01/2024 Adverse Reaction Lenvatinib held on 01/14/2024 for mucositis. 02/07/2024: Lenvatinib 20 mg every day was resumed. 04/2024 Adverse Reaction --04/17/2024: Lenvatinib held for grade 3 mucositis. Metastasis to bone (HCC) 11/04/2023 Initial Diagnosis Metastasis to bone (HCC) 06/16/2024 - Adjunctive Treatment Start Date: 06/16/2024 (Planned) End Date: 11/03/2024 (Planned) Adjunctive Therapy: SUPPORT (DENOSUMAB) Q28 DAYS (XGEVA) Medication(s): denosumab (Xgeva), Subcutaneous, 0 of 6 cycles Discontinue Reason: [Plan is still active] Active Treatment Days for Brisa Gonzalez (until 06/16/2024) There are no remaining days before 06/16/2024. REVIEW OF SYSTEMS: She had chronic hoarseness, difficult swallowing (after RT), left shoulder pain (chronic), left hippain and decrease in strength in the right arm due to metastasis disease. A 10 point review of systems was performed and negative except as listed in the history above. OBJECTIVE: PHYSICAL EXAM: Vitals: BP 129/84 Pulse 99 Temp 98.2 ??F (36.8 ??C) Resp 16 Wt 49.3 kg (108 lb 11.2 oz) SpO2 97% Wt Readings from Last 3 Encounters: 06/15/24 49.3 kg (108 lb 11.2 oz) 04/17/24 53.1 kg (117 lb) 03/20/24 55.2 kg (121 lb 12.8 oz) General appearance: Comfortable, not in acute distress. Head: Normocephalic, atraumatic. Eyes: Conjunctiva/corneas clear. Nose: Nares normal, septum midline. Neck: Supple, symmetrical, trachea midline. Lungs: Respirations unlabored. Chest expansion equal bilaterally. Heart: Regular rate, no cyanosis or edema. Abdomen: Symmetrical, no distention. Extremities: Extremities without edema. Skin: No rashes or lesions. Neurologic: AAO, no gross motor deficits. ECO Karnofsky Performance Status: 80% - Normal activity with effort; some signs or symptoms of disease LABS: Recent Labs Component Name 06/15/24 1441 04/17/24 1507 03/20/24 1441 10/21/23 1450 10/07/22 0012 10/05/22 2234 10/05/22 0436 WBC 9.8 9.5 7.8 - 8.1 8.9 9.3 RBC 5.23* 5.28* 4.93 - 3.03* 3.18* 3.32* HGB 16.0* 15.2 14.6 - 9.2* 9.7* 10.2* HCT 45.9 44.6 41.8 - 27.3* 29.2* 30.5* MCV 87.8 84.5 84.8 - 90.1 91.8 91.9 MCHC 34.9 34.1 34.9 - 33.7 33.2 33.4 PLTCOUNT 285 279 297 - 263 239 239 NEUTPCT 68.5 73.6 67.8 - 59.0 67.4 68.2 LYMPHPCT 20.6 16.9* 20.7 - - - - NEUTABS - - - - 4.75 6.03 6.32 LYMPHABS 2.01 1.61 1.62 - - - - BASOABS 0.05 0.04 0.05 - - - - - = values in this interval not displayed. Recent Labs Component Name 06/15/24 1441 04/17/24 1507 03/20/24 1441 03/07/24 1253 12/24/22 1059 10/07/22 0012 10/05/22 2234 POTASSIUM 4.1 4.2 4.1 4.0 - 3.8 3.7 CO2 22 23 24 24 - 25 25 BUN 28* 25 19 28* - 15 19 CREATININE 0.86 0.73 0.69 0.78 - 0.56 0.53* EGFR 75* >90 >90 84* - >90 >90 GLUCOSE 104* 95 104 91 - 92 118* CALCIUM 10.2 9.4 9.5 9.4 - 9.0 8.6 MAGNESIUM 1.7 - - - - 1.7 1.6 PHOS 6.5* - 5.7* 5.2* - 5.3* 4.6 ALT 13 9 11 12 - - - AST 16 16 17 14 - - - ALKPHOS 78 80 83 85 - - - - = values in this interval not displayed. RADIOLOGY: PET/CT 02/25/2024 IMPRESSION: 1.Redemonstrated postsurgical changes of a cervicothoracic region with interval decreased metabolicactivity in the cervical spine suggestive of partial response to therapy. Of note, evaluation is limited due to adjacent muscular activity. 2.Interval resolution of previously seen focal FDG activity within the right thyroidectomy bed. However, this area is also affected by adjacent muscular activity in the neck and streak artifacts fromspinal instrumentation. 3.Previously mentioned 5 mm right lower lobe pulmonary nodule without significant FDG uptake is notappreciated in today's exam may be too small to be characterized by PET. Of note, respiratory motion may limit evaluation of the lower lung zone. MRI cervical spine 02/25/2024 IMPRESSION: 1. Redemonstration of extensive postoperative changes of posterior spinal fusion and decompressive laminectomies. 2. Redemonstration of a grossly unchanged metastatic disease in the cervical spine at C2, C4, C5, C6 and T1 levels as detailed above. No definite new lesions. No spinal cord compression. MRI brain 11/05/2023 IMPRESSION: 1. No evidence of brain metastases. 2. 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 ASSESSMENT: Ms. Brisa Walters is a very pleasant 63 year old female who was diagnosed with stage III papillary carcinoma of thyroid in 08/2020 when she underwent total thyroidectomy and lymph node dissection. She subsequently received WARD in 03/2021, and followed with surveillance TFTs and imaging which was concerning for residual disease. She underwent resection of right central neck mass in 02/2022.In 08/2022, imaging was concerning for distant recurrence in the spine and she received SBRT to C-spine in 09/2022, followed by C2-T2 fusion with laminectomy for partial resection of extramedullary tumor from C3-C7 on 10/02/2022. More recently, her thyroglobulin has been trending up (385 on 09/09/2023) and imaging with MRI cervical spine and PET/CT has showed concerns for recurrence in the cervical and thoracic vertebrae, possibly with spinal cord involvement. She received palliative RT to C/T-spinein , and was started on lenvatinib around early 01/2024. Lenvatinib was dose was reduced to 20 mg daily in 02/2024 due to mucositis, and then to 14 mg daily in 04/2024. She presents today for follow-up. # Papillary carcinoma of thyroid, stage III (pT4a pN1b cM0), diagnosed 08/19/2020, with locally recurrent/residual disease identified 02/05/2022, and distant recurrence in spine diagnosed 10/02/2022 - Total thyroidectomy requiring sacrifice of right laryngeal nerve 08/19/2020, with central neck dissection, tracheal resection, esophageal muscle resection, bilateral modified radical neck dissection, and parathyroid implantation of the right deltoid - WARD 157.6 mCi I-131, 03/19/2021 - Excision of right central neck mass, 02/05/2022 - SBRT to cervical spine, 2400 cGy in 2 fractions, 09/18/2022 & 09/21/2022 - C2-T2 fusion with laminectomy for partial resection of extramedullary tumor from C3-C7, 10/02/2022 - Palliative RT to C/T spine, 3,000 cGy in 5 fractions, 10/18/2023 to 10/22/2023 - Lenvatinib, early 10/2023 to present # 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 Continue lenvatinib 14 mg daily as she is tolerating this dose reasonably well. Repeat scans (CT CAP + neck with contrast and bone scan) before next visit. - Dysphagia: She will follow up with Dr. Delgado with ENT. - Repeat radioactive iodine therapy per Endocrinology. - Bone health: Start on BMA as soon as she has dental clearance (discussed with Dr. Bustamante). - RTC in 4 weeks with repeat labs (CBC and CMP ordered) and scans. She will call us with questions/concerns in the meantime. Monitoring while on lenvatinib: - LFTs at baseline, every 2 weeks for 2 months, and at least monthly thereafter. - Renal function and electrolytes. - Serum calcium. - Thyroid function (TSH levels) at baseline and monthly or as clinically indicated. - Monitor for proteinuria at baseline and periodically during treatment. - Blood pressure monitoring. - Dental exam. - EKG (QTc 462 on 11/01/2023). - Monitor for symptoms/signs of cardiac dysfunction, arterial thrombosis,, fistula formation, GI perforation, bleeding/hemorrhage, diarrhea, dehydration, wound healing complications. Patient is receiving lenvatinib, which requires intensive monitoring for toxicity and are high riskmedication(s) that carry potential to cause serious morbidity or . After clinical assessment and review of laboratory results, including pertinent blood counts and chemistries, it is okay to proceed with treatment as scheduled. Remi Beckett MD [place] Waitress/Waiterrecruiting assistant Department of Hematology & Medical Oncology [facility]: NE ENGINE MECHANIC documented in this encounter Plan of Treatment Upcoming Encounters Date Type Department Care Team (Late st Contact Info) Description 07/25/2024 10:00 AM MARINE ENGINE MECHANIC Office Visit [facility] - Endocrinology [address] [place] [phone] Yosi Bustamante MD [address] [place] [address] [address]L [place] [address] 07/26/2024 10:00 AM MARINE ENGINE MECHANIC Appointment [facility] [address] [place] [phone] Neri Delgado MD [address] [place] [phone] 07/26/2024 10:00 AM MARINE ENGINE MECHANIC Office Visit [facility] - ENT [address] [place] [phone] Myra Farmer, GAMING INVESTIGATOR [address] [place] [address] [address] [place] [phone] 07/26/2024 11:15 AM MARINE ENGINE MECHANIC Office Visit [facility] - ENT [address] [place] [phone] Neri Delgado MD [address] [place] [phone] 08/02/2024 2:20 PM MARINE ENGINE MECHANIC Appointment [facility] [address] [place] [phone] 08/02/2024 3:00 PM MARINE ENGINE MECHANIC Office Visit [facility] - Hematology/Oncology [address] [place] [phone] Remi Beckett MD [address] [place] [phone] 08/18/2024 1:45 PM MARINE ENGINE MECHANIC Office Visit [facility] - ENT [address] [place] [phone] Neri Delgado MD [address] [place] [phone] Scheduled Orders Name Type Priority Associated Diagnoses Orde r Schedule URINALYSIS NO MICROSCOPIC NO CULTURE Lab STAT Papillary carcinoma of thyroid (HCC) Expected: 07/13/2024 (Approximate), Expires: 08/21/2024 COMPREHENSIVE METABOLIC PANEL Lab STAT Papillary carcinoma of thyroid (HCC) Expected: 07/13/2024 (Approximate), Expires: 07/10/2025 CBC WITH DIFFERENTIAL Lab STAT Papillary carcinoma of thyroid (HCC) Expected: 07/13/2024 (Approximate), Expires: 07/10/2025 documented as of this encounter Visit Diagnoses Diagnosis Papillary carcinoma of thyroid (HCC)- Primary Malignant neoplasm of thyroid gland Metastasis to bone (HCC) Secondary malignant neoplasm of bone and bone marrow Mucositis due to antineoplastic therapy Mucositis (ulcerative) due to antineoplastic therapy Encounter for antineoplastic chemotherapy documented in this encounter Care Teams Systems Integration Analyst Relationship Specialty Start Date End Date Yaya Villatoro MD [address] [facility] [address] [place] [phone] PCP - General Internal Medicine 05/04/23 Joseph Manzanares MD [address] [place] [phone] Internal Medicine 04/21/23 documented as of this encounter
--- OUTSIDE RECORDS SUMMARY | 2024-07-23 07:06 | XMS_ITS | Referral Summary ---
Author Organization [facility] Health Address [address] [place] [address] Care Team Providers Care Ledger Clerk Name Role Phone Joseph Manzanares MD Unavailable Yaya Villatoro MD Primary Care Provider [phone] Source Comments [facility],non-owned Affiliates and Associated Physician Practices is amultiple site organization consisting of ambulatory clinics and hospital sitesin [place], [place], [place] and [place]. This disclosure is being madepursuant to the Care Everywhere program and may not contain all information available regarding this patient. Last updated 18.[facility] Encounters Date Type Department Care Team Description 07/13/2024 Telephone [facility] - ENT [address] [facility], [place] [address] Andria Aldana RN Concerns 07/12/2024 Travel 07/07/2024 Travel 07/07/2024 11:23 AM SPRAY TECHNICIAN - 07/07/2024 1:03 PM SPRAY TECHNICIAN Hospital Encounter [facility] CAT SCAN [address] [place] [address] Remi Beckett MD Discharge Disposition: Home or Self Care 07/07/2024 11:23 AM SPRAY TECHNICIAN - 07/07/2024 1:03 PM SPRAY TECHNICIAN Hospital Encounter [facility] CAT SCAN [address] [place] [address] Remi Beckett MD Discharge Disposition: Home or Self Care 07/07/2024 1:04 PM SPRAY TECHNICIAN - 07/07/2024 11:59 PM SPRAY TECHNICIAN Hospital Encounter [facility] NUCLEAR MEDICINE [address] [place] [address] Remi Beckett MD Discharge Disposition: Home or Self Care 07/07/2024 10:00 AM SPRAY TECHNICIAN - 07/07/2024 11:22 AM SPRAY TECHNICIAN Hospital Encounter [facility] NUCLEAR MEDICINE [address] [place] [address] Remi Beckett MD Discharge Disposition: Home or Self Care 07/06/2024 2:00 PM SPRAY TECHNICIAN Hospital Encounter [facility] Cancer Care - Radiation Oncology [address] [place] [address] Marcio Mcintosh MD 07/06/2024 Travel 07/06/2024 11:56 AM SPRAY TECHNICIAN - 07/06/2024 1:59 PM SPRAY TECHNICIAN Hospital Encounter [facility] Imaging Services - MRI [address] [place] [address] Marcio Mcintosh MD Radiation Oncology Discharge Disposition: Home or Self Care 07/06/2024 Refill [facility] - Hematology/Oncolog y [address] [place] [address] Remi Beckett MD Refill Request 07/06/2024 2:00 PM SPRAY TECHNICIAN Office Visit [facility] Health Cancer Care - Rad/Onc [address] [place] [address] Marcio Mcintosh MD Cancer, metastatic to bone (HCC) (Primary Dx); Metastasis to bone (HCC); Papillary carcinoma of thyroid (HCC); Thyroid cancer (CMS/HCC); Secondary malignant neoplasm of bone (HCC) 07/05/2024 Refill [facility] - Hematology/Oncolog y [address] [place] [address] Remi Beckett MD Refill Request 06/19/2024 Travel 06/15/2024 2:36 PM SPRAY TECHNICIAN - 06/15/2024 11:59 PM SPRAY TECHNICIAN Hospital Encounter [facility] CANCER CARE DRAWSTATION [address] [facility], [address] [place] [address] Discharge Disposition: Home or Self Care 06/15/2024 Travel 06/15/2024 2:20 PM SPRAY TECHNICIAN - 06/15/2024 2:35 PM SPRAY TECHNICIAN Hospital Encounter [facility] INFUSION CENTER [address] [place] [address] Remi Beckett MD Discharge Disposition: Home or Self Care 06/15/2024 3:00 PM SPRAY TECHNICIAN Office Visit [facility] - Hematology/Oncolog y [address] [place] [phone] Remi Beckett MD Papillary carcinoma of thyroid (HCC) (Primary Dx); Metastasis to bone (HCC); Mucositis due to antineoplastic therapy; Encounter for antineoplastic chemotherapy 06/08/2024 Travel 05/24/2024 Orders Only [facility] - Hematology/Oncolog y [address] [place] [address] Darryl العراقي RN 05/24/2024 Travel from Last 3 Months Allergies Active Allergy Reactions Criticality Noted Date [...] naloxone HCl (Narcan) 4 MG/0.1ML nasal spray [place] 1 (one) spray into the nose as [...] by mouth daily with food 30 tablet Active Additional Information Patient not taking.Reported on 06/15/2024 vitamin D3 (Cholecalciferol) 10 MCG (400 UNIT) tabletIndications: Metastasis to bone (HCC) Take 1 (one) tablet by mouth once daily 30 tablet Active Additional Information Patient not taking.Reported on [...] seen Assessment & Plan (08/09/2020 10:15 AM SPRAY TECHNICIAN): Inner/outer ear inflammation, cellulitis vs other, reported [...] clobetasol ointment BID PRN to affected areas Immunizations Name Administration Dates Next Due [employer] BIVALENT 12Y+ 30mcg/0.3ML 10/21/2022 Covid Pfizer primary [...] RECOM-NG, QUADR. (FLUBLOCK QUADRIVALENT; 18Y+) (RIV4) 06/10/2022 Social History Tobacco Use Types Packs/Day Years [...] Recorded Patient Health Questionnaire-2 Score 0 07/06/2024 [facility] - Occupational [...] place to sleep or slept in a custodial (including now)? No 10/02/2022 Sex and Gender Information Value Date Recorded Sex Assigned at Not on file Gender Identity Not on file Sexual Orientation Not on file Last Filed Vital Signs Vital Sign Reading Time Taken Comments Blood Pressure 129/57 07/06/2024 1:53 PM SPRAY TECHNICIAN Pulse 85 07/06/2024 1:53 PM SPRAY TECHNICIAN Temperature 36.4 ??C (97.5 ??F) 07/06/2024 1:53 PM CS T Respiratory Rate 18 07/06/2024 1:53 PM SPRAY TECHNICIAN Oxygen Saturation 95% 07/06/2024 1:53 PM SPRAY TECHNICIAN Inhaled Oxygen Concentration - - Weight 49.3 kg (108 lb 11.2 oz) 06/15/2024 3:01 PM SPRAY TECHNICIAN Height 157.5 cm (5' 2) 03/20/2024 2:39 PM CDT Body Mass Index 19.88 03/20/2024 2:39 PM CDT Functional Status Functional Status Response Date of [...] person have difficulty concentrating/remembering/making decisions? No 10/02/2022 Plan of Treatment Upcoming Encounters Date Type Department Care Team (Late st Contact Info) Description 07/25/2024 10:00 AM SPRAY TECHNICIAN Office Visit [facility] - Endocrinology [address] [place] [address], [place] [address] Yosi Bustamante MD [address] [place] [address] [place] [address] 07/26/2024 10:00 AM SPRAY TECHNICIAN Appointment [facility] DIAGNOSTIC RAD [address] [place] [phone] Neri Delgado MD [address] [place] [address] 07/26/2024 10:00 AM SPRAY TECHNICIAN Office Visit [facility] - ENT [address] [place] [phone] Myra Farmer, PROCEDURE MANAGER [address] [place] [address] [place] [phone] 07/26/2024 11:15 AM SPRAY TECHNICIAN [facility] [address] [place] [phone] Neri Delgado MD [address] [place] [address] 08/02/2024 2:20 PM SPRAY TECHNICIAN Appointment [facility] INFUSION CENTER [address] [place] [address] 08/02/2024 3:00 PM SPRAY TECHNICIAN Office Visit [facility] - Hematology/Oncology [address] [place] [phone] Remi Beckett MD [address] [place] [phone] 08/18/2024 1:45 PM SPRAY TECHNICIAN Office Visit [facility] - ENT [address] [place] [phone] Neri Delgado MD [address] [place] [address] Medical Devices Implanted Type Area Key Punch Operator Device Identifier Shelf Expiration Date Model / Serial / Lot Savage Bone Void Ca Slf Stimulan Implanted:Qty: 1 on 10/02/2022 by Coy Gómez MD at [facility] N/A: Spine Cervical Biocompstes 04/03/2025 620-005 / / [id number] Description:mixed with 500mg vancomycin powder Screw Set M6 Spne Oc Upr Thor Infnt Implanted:Qty: 11 on 10/02/2022 by Coy Gómez MD at [facility] N/A: Spine Cervical Medtronic Sofamor Danek Spine [id number] / / Donovan Spnl 240mm 3.5mm Std Implanted:Qty: 1 on 10/02/2022 by Coy Gómez MD at [facility] N/A: Spine Cervical Med[employer]onic Inc [id number] / / Savage Bone Void 10ml Dbm Grftn Algrf Ptty Implanted:Qty: 1 on 10/02/2022 by Coy Gómez MD at [facility] N/A: Spine Cervical Med[employer] Inc [id number] / / Screw 3.5mm 16mm Ma Spne Bone Implanted:Qty: 4 on 10/02/2022 by Coy Gómez MD at [facility] N/A: Spine Cervical Med[employer] Inc [id number] / / Screw 3.5mm 20mm Ma Spne Bone Implanted:Qty: 1 on 10/02/2022 by Coy Gómez MD at [facility] N/A: Spine Cervical Med[employer] Inc [id number] / / Screw 3.5mm 18mm Ma Spne Bone Implanted:Qty: 1 on 10/02/2022 by Coy Gómez MD at [facility] N/A: Spine Cervical Med[employer] Inc [id number] / / Screw 3.5mm 22mm Ma Spne Bone Implanted:Qty: 1 on 10/02/2022 by Coy Gómez MD at [facility] N/A: Spine Cervical Med[employer] Inc [id number] / / Screw 4mm 20mm Ma Spne Bone Implanted:Qty: 1 on 10/02/2022 by Coy Gómez MD at [facility] N/A: Spine Cervical Med[employer] Inc [id number] / / Screw 4.5mm 28mm Ma Spne Bone Implanted:Qty: 2 on 10/02/2022 by Coy Gómez MD at [facility] N/A: Spine Cervical Med[employer]onic Inc [id number] / / Screw 4.5mm 32mm Ma Spne Infnt Nonster Implanted:Qty: 1 on 10/02/2022 by Coy Gómez MD at [facility] N/A: Spine Cervical Med[employer]onic Inc [id number] / / Procedures Procedure Name Priority Date/Time Associated Diagnosis Comments NM BONE SCAN WHOLE BODY Routine 07/07/2024 1:44 PM SPRAY TECHNICIAN Cancer, metastatic to bone (HCC) CT NECK SOFT TISSUE W CONT Routine 07/07/2024 12:11 PM SPRAY TECHNICIAN Papillary carcinoma of thyroid (HCC) CT CHEST ABDOMEN PELVIS W CONT Routine 07/07/2024 12:08 PM SPRAY TECHNICIAN Papillary carcinoma of thyroid (HCC) MRI CERVICAL SPINE WWO CONT Routine 07/06/2024 1:17 PM SPRAY TECHNICIAN Metastasis to bone (HCC) Secondary malignant neoplasm of bone (HCC) THYROGLOBULIN BY ANTONIETA RFLXED Routine 06/15/2024 2:41 PM SPRAY TECHNICIAN Thyroid cancer (HCC) Postoperative hypothyroidism Malignant tumor of thyroid gland (HCC) Cancer, metastatic to bone (HCC) Hypocalcemia Other hypoparathyroidism (HCC) Papillary carcinoma of thyroid (HCC) MAGNESIUM BLOOD STAT 06/15/2024 2:41 PM SPRAY TECHNICIAN VITAMIN D 25-HYDROXY MARAL 06/15/2024 2:41 PM SPRAY TECHNICIAN PHOSPHORUS BLOOD Routine 06/15/2024 2:41 PM SPRAY TECHNICIAN Postoperative hypothyroidism Thyroid cancer (HCC) Hypocalcemia Other hypoparathyroidism (HCC) Malignant tumor of thyroid gland (HCC) Cancer, metastatic to bone (HCC) THYROGLOBULIN REFLEX PROFILE Routine 06/15/2024 2:41 PM SPRAY TECHNICIAN Thyroid cancer (HCC) Postoperative hypothyroidism Malignant tumor of thyroid gland (HCC) Cancer, metastatic to bone (HCC) Hypocalcemia Other hypoparathyroidism (HCC) Papillary carcinoma of thyroid (HCC) TSH Routine 06/15/2024 2:41 PM SPRAY TECHNICIAN Thyroid cancer (HCC) Postoperative hypothyroidism Malignant tumor of thyroid gland (HCC) Cancer, metastatic to bone (HCC) Hypocalcemia Other hypoparathyroidism (HCC) Papillary carcinoma of thyroid (HCC) COMPREHENSIVE METABOLIC PANEL STAT 06/15/2024 2:41 PM SPRAY TECHNICIAN Papillary carcinoma of thyroid (HCC) CBC W AUTO DIFFERENTIAL STAT 06/15/2024 2:41 PM SPRAY TECHNICIAN Papillary carcinoma of thyroid (HCC) HIV-1 HIV-2 ANTIBODY + HIV P24 AG PANEL Routine 08/14/2022 3:21 PM SPRAY TECHNICIAN Preventative health care SCAN ONLY HIS OPIOID [...] Bone Scan Whole Body (07/07/2024 1:44 PM SPRAY TECHNICIAN) Anatomical Region Laterality Modality Abdomen Nuclear Medicine 07/07/2024 10:5 1 AM SPRAY TECHNICIAN Impressions 07/07/2024 3:49 PM SPRAY TECHNICIAN IMPRESSION: 1. Intense radiotracer uptake within left pelvis, consistent with severe osteoarthritis seen in the prior PET/CT from 02/25/2024. 2. Moderate radiotracer uptake within lower neck anteriorly which may relate to post treatment changes, follow-up is recommended. > Dictated by Daphne Reis MD (Rug Clipper) 07/07/2024 10:51 AM Tiesha Mckeon DO have personally reviewed and interpreted this examination/study. > Interpreting Provider: Tiesha Sy DO on 07/07/2024 3:49 PM Narrative 07/07/2024 3:49 PM SPRAY TECHNICIAN PROCEDURE: ??NM BONE SCAN WHOLE BODY DATE/TIME OF EXAM: ??07/07/2024 10:45 AM CLINICAL INFORMATION: None relevant/not provided if blank. Indication: C79.51: Cancer, metastatic to bone (HCC) HISTORY: A 63-year-old female with metastatic papillary thyroid carcinoma diagnosed in 2020 status post total thyroidectomy, cervical and thoracic spine metastasis status post radiotherapy. Currently on immunotherapy. TECHNIQUE: The patient was injected with 24.9 mCi of duetebrblf08-u MDP IV in the right antecubital fossa. [...] hip joint. There are multiple sites of xmau-sk-lccrmdfb increased uptake in the bilateral shoulders and [...] patient was injected with 24.9 mCi of fhczpuvifu21-b MDPIV in the right antecubital fossa. Anterior [...] hip joint. There are multiple sites of gysp-ae-txxdlrek increased uptake in the bilateral shoulders and spine consistent with degenerative disease. IMPRESSION: 1. Intense radiotracer uptake within left pelvis, consistent with severe osteoarthritis seen in the prior PET/CT from 02/25/2024. 2. Moderate radiotracer uptake within lower neck anteriorly which may relate to post treatment changes, follow-up is recommended. > Dictated by Daphne Reis MD (Rug Clipper) 07/07/2024 10:51AM I, Tiesha Sy DO have personally reviewed and interpreted this examination/study. > Interpreting Provider: Tiesha Sy DO on 07/07/2024 3:49 PM Remi Beckett MD NM ORDERABLES * CT Neck Soft Tissue W Cont (07/07/2024 12:11 PM SPRAY TECHNICIAN) Anatomical Region Laterality Modality Head Computed Tomogra phy 07/09/2024 9:47 AM SPRAY TECHNICIAN Impressions 07/09/2024 10:08 AM SPRAY TECHNICIAN IMPRESSION: 1. A 9 x 7 x [...] 07/09/2024 10:08 AM Narrative 07/09/2024 10:08 AM SPRAY TECHNICIAN PROCEDURE: ??CT NECK SOFT TISSUE W CONT, DATE/TIME OF EXAM: ??07/07/2024 12:12 PM, LOCATION ??[facility] INDICATION: C73: Papillary carcinoma [...] CONT, DATE/TIME OF EXAM: :12 PM, LOCATION [facility] INDICATION: C73: Papillary carcinoma [...] Abdomen Pelvis W Cont (07/07/2024 12:08 PM SPRAY TECHNICIAN) Anatomical Region Laterality Modality Chest, Abdomen, Pelvis Computed Tomography 07/07/2024 1:01 PM SPRAY TECHNICIAN Impressions 07/07/2024 4:00 PM SPRAY TECHNICIAN Impression: 1.Changes of total thyroidectomy. 2.Minimal enhancement around the gallbladder fundus, this can be seen in adenomyomatosis. Right upper quadrant ultrasound may be obtained for further evaluation if clinically indicated. 3.Partially imaged osseous changes in the lower cervical and upper thoracic spine at site of treated metastasis are better evaluated on MRI from 11/23/2023. > Dictated by Donald NATH, [facility] ??(radiology supervisor). Vaishali Mckeon MD have personally reviewed and interpreted this examination/study. > Interpreting Provider: Vaishali Herrera MD on 07/07/2024 4:00 PM Narrative 07/07/2024 4:00 PM SPRAY TECHNICIAN PROCEDURE: ??CT CHEST ABDOMEN PELVIS W CONT, DATE/TIME OF EXAM: ??07/07/2024 12:09 PM, LOCATION ??[facility] INDICATION: C73: Papillary carcinoma [...] changes of the left hip joint with annl-ei-rtso contact. Partially imaged posterior spinal fusion hardware. Bone changes in the left aspect of partially imaged C7 at the site of treated metastasis. Soft tissues: Normal. Procedure Note Lorena Herrera MD - 07/07/2024 PROCEDURE: CT CHEST ABDOMEN PELVIS W CONT, DATE/TIME OF EXAM: 07/07/2024 12:09 PM, LOCATION [facility] INDICATION: C73: Papillary carcinoma [...] osteoarthritic changes ofthe left hip joint with gczc-it-mgfr contact. Partially imaged posteriorspinal fusion hardware. Bone [...] MRI from 11/23/2023. > Dictated by Donald Davis [facility] (radiology supervisor). IVaishali MD have personally reviewed and interpreted this examination/study. > Interpreting Provider: Vaishali Herrera MD on 07/07/2024 4:00 PM Remi Beckett MD CT ORDERABLES * MRI Cervical Spine Wwo Cont (07/06/2024 1:17 PM SPRAY TECHNICIAN) Anatomical Region Laterality Modality Spine Magnetic Resonan ce 07/06/2024 3:40 PM SPRAY TECHNICIAN Impressions 07/07/2024 6:34 AM SPRAY TECHNICIAN IMPRESSION: 1. 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 No definite evidence of severe central canal stenosis or intramedullary tumor is seen. IMPRESSION: Normal cervical spine MRI performed without and with IV contrast. > Interpreting Provider: Primitivo Martin MD on 07/07/2024 6:34 AM Narrative 07/07/2024 6:34 AM SPRAY TECHNICIAN PROCEDURE: ??MRI CERVICAL SPINE WWO CONT [...] * THYROGLOBULIN REFLEX PROFILE (06/15/2024 2:41 PM SPRAY TECHNICIAN) Thyroglobulin Antibody <1.0 0.0 - 0.9 IU/mL 06/16/2024 4:09 PM SPRAY TECHNICIAN [facility] ([facility]) Comment: Thyroglobulin Antibody measured by [employer] Methodology It should be noted that the presence of thyroglobulin antibodies may not be pathogenic nor diagnostic, especially at very low levels. The assay weblogic developer has found that four percent of individuals without evidence of thyroid disease or autoimmunity will have positive TgAb levels up to 4 IU/mL. Blood BLOOD SPECIMEN / Unknown Lab Venipuncture / Unknown 06/15/2024 2:41 PM SPRAY TECHNICIAN 06/15/2024 2:42 PM SPRAY TECHNICIAN Narrative [facility] ([facility]) - 06/16/2024 4:09 PM SPRAY TECHNICIAN Performed at: ??01 - [facility] [address] [place], [place] ??[id number] Office Assistant Receptionist: Oral Melendez PhD, Phone: ??[phone] Yosi Bustamante MD LAB - CHEMISTRY ORD ERABLES [facility] ([facility]) [address] [place] [address] * (ABNORMAL) THYROGLOBULIN BY ANTONIETA RFLXED (06/15/2024 2:41 PM SPRAY TECHNICIAN) Pathologist [facility] Thyroglobulin by ANTONIETA 100.7(H) 1.5 - 38.5 ng/mL 06/16/2024 4:09 PM SPRAY TECHNICIAN [facility] ([facility]) Comment: According to the National Academy of [...] Lab Venipuncture / Unknown 06/15/2024 2:41 PM SPRAY TECHNICIAN 06/15/2024 2:42 PM SPRAY TECHNICIAN Narrative [facility] ([facility]) - 06/16/2024 4:09 PM SPRAY TECHNICIAN Performed at: ??01 - [facility] [address], [place] ??[id number] Office Assistant Receptionist: Oral Melendez PhD, Phone: ??[phone] Yosi Bustamante MD LAB - CHEMISTRY ORD ERABLES [facility] ([facility]) [address] [place] [address], [facility] * VITAMIN D 25-HYDROXY (06/15/2024 2:41 PM SPRAY TECHNICIAN) Vitamin D, 25 Hydroxy 47.3 30.0 - 80.0 ng/mL 06/15/2024 3:38 PM SPRAY TECHNICIAN [facility] Comment: The recommendations for 25-Hydroxy [...] Lab Venipuncture / Unknown 06/15/2024 2:41 PM SPRAY TECHNICIAN 06/15/2024 2:47 PM SPRAY TECHNICIAN Remi Beckett MD LAB - CHEMISTRY ORDERABLES Performing Organization Address [facility] Co de Phone Number [facility] [address] [place] [address], [facility] [phone] * (ABNORMAL) CBC WITH DIFFERENTIAL (06/15/2024 2:41 PM SPRAY TECHNICIAN) WBC 9.8 4.0 - 10.7 x10E9/L 06/15/2024 2:55 PM [facility] RBC Count 5.23(H) 3.90 - 5.20 x10E12/L 06/15/2024 2:55 PM [facility] Hemoglobin 16.0(H) 11.9 - 15.8 g/dL 06/15/2024 2:55 PM [facility] Hematocrit 45.9 34.8 - 46.1 % 06/15/2024 2:55 PM [facility] MCV 87.8 80.0 - 98.0 fL 06/15/2024 2:55 PM [facility] MCH 30.6 26.7 - 33.6 pg 06/15/2024 2:55 PM [facility] MCHC 34.9 31.7 - 36.3 g/dL 06/15/2024 2:55 PM [facility] RDW-CV 13.5 11.3 - 14.8 % 06/15/2024 2:55 PM [facility] Platelet Count 285 150 - 420 x10E9/L 06/15/2024 2:55 PM [facility] MPV 9.5 7.8 - 11.4 fL 06/15/2024 2:55 PM [facility] Neutrophil % 68.5 41.0 - 74.0 % 06/15/2024 2:55 PM [facility] Lymphocyte % 20.6 17.0 - 47.0 % 06/15/2024 2:55 PM [facility] Monocyte % 9.0 3.0 - 11.0 % 06/15/2024 2:55 PM [facility] Eosinophil % 1.2 0.0 - 7.0 % 06/15/2024 2:55 PM [facility] Basophil % 0.5 0.0 - 1.6 % 06/15/2024 2:55 PM [facility] Immature Granulocytes % 0.2 0.0 - 1.0 % 06/15/2024 2:55 PM [facility] Neutrophil Absolute 6.69 1.60 - 7.50 x10E9/L 06/15/2024 2:55 PM [facility] Lymphocyte Absolute 2.01 1.00 - 4.40 x10E9/L 06/15/2024 2:55 PM [facility] Monocyte Absolute 0.88 0.15 - 1.00 x10E9/L 06/15/2024 2:55 PM [facility] Eosinophil Absolute 0.12 0.00 - 0.60 x10E9/L 06/15/2024 2:55 PM [facility] Basophil Absolute 0.05 0.00 - 0.13 x10E9/L 06/15/2024 2:55 PM [facility] Blood BLOOD SPECIMEN / Unknown Lab Venipuncture / Unknown 06/15/2024 2:41 PM SPRAY TECHNICIAN 06/15/2024 2:47 PM SPRAY TECHNICIAN Remi Beckett MD LAB - HEMATOLOGY ORDERABLES Performing Organization Address [facility] Co de Phone Number [address] [address] [phone] * (ABNORMAL) COMPREHENSIVE METABOLIC PANEL (06/15/2024 2:41 PM SPRAY TECHNICIAN) BUN 28(H) 7 - 26 mg/dL 06/15/2024 3:20 PM [facility] Creatinine 0.86 0.56 - 0.96 mg/dL 06/15/2024 3:20 PM [facility] Sodium 138 136 - 145 mmol/L 06/15/2024 3:20 PM [facility] Potassium 4.1 3.5 - 4.5 mmol/L 06/15/2024 3:20 PM [facility] Chloride 103 98 - 107 mmol/L 06/15/2024 3:20 PM [facility] CO2 22 22 - 29 mmol/L 06/15/2024 3:20 PM [facility] Glucose 104(H) 70 - 99 mg/dL 06/15/2024 3:20 PM [facility] Calcium 10.2 8.4 - 10.2 mg/dL 06/15/2024 3:20 PM [facility] Protein Total 8.1 6.0 - 8.3 g/dL 06/15/2024 3:20 PM [facility] Albumin 4.0 3.4 - 5.0 g/dL 06/15/2024 3:20 PM [facility] Bilirubin Total 0.3 0.2 - 1.2 mg/dL 06/15/2024 3:20 PM [facility] Alkaline Phosphatase 78 40 - 150 U/L 06/15/2024 3:20 PM [facility] ALT 13 5 - 55 U/L 06/15/2024 3:20 PM [facility] AST 16 5 - 34 U/L 06/15/2024 3:20 PM [facility] Anion Gap 13 6 - 16 06/15/2024 3:20 PM [facility] BUN/Creatinine Ratio 33(H) 7 - 23 06/15/2024 3:20 PM [facility] Osmolality Calculated 292 275 - 295 mOsm/kg 06/15/2024 3:20 PM [facility] Albumin/Globulin Ratio 1.0(L) 1.1 - 2.3 06/15/2024 3:20 PM [facility] eGFR by CKD-EPI 75(L) >=90 mL/min/1.7 3 m2 06/15/2024 3:20 PM [facility] Blood BLOOD SPECIMEN / Unknown Lab Venipuncture / Unknown 06/15/2024 2:41 PM SPRAY TECHNICIAN 06/15/2024 2:47 PM SPRAY TECHNICIAN Remi Beckett MD LAB - CHEMISTRY ORDERABLES [facility] [address] [place] [address], [place] [phone] * (ABNORMAL) PHOSPHORUS BLOOD (06/15/2024 2:41 PM SPRAY TECHNICIAN) Phosphorus 6.5(H) 2.9 - 5.1 mg/dL 06/15/2024 3:20 PM SPRAY TECHNICIAN [facility] Blood BLOOD SPECIMEN / Unknown Lab Venipuncture / Unknown 06/15/2024 2:41 PM SPRAY TECHNICIAN 06/15/2024 2:47 PM SPRAY TECHNICIAN Yosi Bustamante MD LAB - CHEMISTRY ORD ERABLES [address] [address], [place] [phone] * MAGNESIUM BLOOD (06/15/2024 2:41 PM SPRAY TECHNICIAN) Pathologist [facility] Magnesium 1.7 1.6 - 2.6 mg/dL 06/15/2024 3:20 PM SPRAY TECHNICIAN [facility] Blood BLOOD SPECIMEN / Unknown Lab Venipuncture / Unknown 06/15/2024 2:41 PM SPRAY TECHNICIAN 06/15/2024 2:47 PM SPRAY TECHNICIAN Remi Beckett MD LAB - CHEMISTRY ORDERABLES Performing Organization Address City/[facility]/ZIP Co de Phone Number [address] [address], [place] [phone] * (ABNORMAL) TSH (06/15/2024 2:41 PM SPRAY TECHNICIAN) TSH 0.029(L) 0.350 - 4.940 uIU/mL 06/15/2024 3:38 PM SPRAY TECHNICIAN [facility] Blood BLOOD SPECIMEN / Unknown Lab Venipuncture / Unknown 06/15/2024 2:41 PM SPRAY TECHNICIAN 06/15/2024 2:47 PM SPRAY TECHNICIAN Yosi Bustamante MD LAB - CHEMISTRY ORD ERABLES [address] [place] [address], [place] [phone] * HIV-1 HIV-2 ANTIBODY + HIV P24 AG PANEL (New on 11/18) (08/14/2022 3:21 PM SPRAY TECHNICIAN) HIV Antigen/Antibod y 1 & 2 Non-reacti ve Non-react oswaldo 08/14/2022 4:18 PM SPRAY TECHNICIAN [facility] Comment:No Laboratory eviden ce of HIV infection. Blood BLOOD SPECIMEN / Unknown Lab Venipuncture / Unknown 08/14/2022 3:21 PM SPRAY TECHNICIAN 08/14/2022 3:33 PM SPRAY TECHNICIAN Adriana Adams DO LAB - CHEMISTRY ORDSrinivas WEAVER [address] [address], [place] [phone] * SCAN ONLY HIS OPIOID MED AGREEMENT (11/04/2020) Historical Provider MD SCANNING ONLY * HEPATITIS C AB SCREEN RFLX NAAT QUANT (03/07/2020 3:19 PM CDT) Pathologist [facility] Hepatitis C Antibody Non-react oswaldo Non-reac tive 03/07/2020 4:28 PM CDT [facility] Comment:Hepatitis C Antibody screen indicates no [...] CDT Marylu Marie DO LAB - CHEMISTRY ORDSrinivas WEAVER [address] [address], [place] [phone] * HPV DETECTION HIGH RISK LEE (11/23/2019 10:00 AM CDT) High Risk Human Papilloma Result Not Detected Not Detected 11/28/2019 3:43 PM CDT [facility] High Risk Human Papilloma Interp 11/28/2019 3:43 PM CDT [facility] Comment:High Risk Human Taurus lloma Virus was Not Detected. Pathology/Cytolo gy MISCELLANEOUS SAMPLES / Unknown 11/23/2019 10:00 AM CDT 11/24/2019 11:39 AM CDT Narrative [facility] - 11/28/2019 3:43 PM [...] Dillard MD LAB - MICROB IOLOGY ORDERABLES [facility] [address] [phone] from Last 3 Months or Most Recently Relevant to Health Maintenance Advance Directives * Full Code (Latest Code Status on File) Date Activated Date Inactivated Comments 10/02/2022 10:55 AM 10/07/2022 1:12 PM * Full Code Date Activated Date Inactivated Comments 08/19/2020 4:54 PM 08/29/2020 12:30 PM Care Teams Ledger Clerk Relationship Specialty Start Date End Date Yaya Villatoro MD [address] [facility] [address] [place] [phone] PCP - General Internal Medicine 05/04/23 Joseph Manzanares MD [address] [place] [phone] Internal Medicine 04/21/23
--- OUTSIDE RECORDS SUMMARY | 2024-07-23 07:06 | XMS_ITS | Encounter Summary ---
Author Organization [facility] Health Address [address] [place] [address] Care Team Providers Care Tagman Name Role Phone Joseph Manzanares MD Unavailable Yaya Villatoro MD Primary Care Provider [phone]- [phone] Encounter Details Date Type Department Care Team (Latest Contact Info) Description 07/12/2024 Travel Social History Tobacco Use Types Packs/Day [...] Recorded Patient Health Questionnaire-2 Score 0 07/06/2024 [facility] - Occupational Stress [...] place to sleep or slept in a [place] care facility (including now)? No 10/02/2022 Sex and Gender [...] st Contact Info) Description 07/25/2024 10:[address]/MEDICAL INTERPRETER Office Visit [facility] - Endocrinology [address] [place] [phone] Yosi Bustamante MD [address] [place] [address] 2L [place] [address] 07/26/2024 10:[address]/MEDICAL INTERPRETER Appointment [facility] [address] [place] [address] Neri Delgado MD [address] [place] [address] 07/26/2024 10:[address]/MEDICAL INTERPRETER Office Visit [facility] - ENT [address] [place] [phone] Myra Farmer, PRINTER APPRENTICE [address] [place] [address] 2L [place] [phone] 07/26/2024 11:[address]/MEDICAL INTERPRETER Office Visit [facility] - ENT [address] [place] [phone] Neri Delgado MD [address] [place] [address] 08/02/2024 2:[address]/MEDICAL INTERPRETER Appointment [facility] [address] [place] [address] 08/02/2024 3:[address]/MEDICAL INTERPRETER Office Visit [facility] - Hematology/Oncology [address] [place] [phone] Remi Beckett MD [address] [place] [phone] 08/18/2024 1:[address]/MEDICAL INTERPRETER Office Visit [facility] - ENT [address] [place] [address] Neri Delgado MD [address] [place] [address] documented as of this encounter Visit Diagnoses Not on filedocumented in this encounter Care Teams Tagman Relationship Specialty Start Date End Date Yaya Villatoro MD [address] [phone] PCP - General Internal Medicine 05/04/23 Joseph Manzanares MD [address] [place] [phone] Internal Medicine 04/21/23 documented as of this encounter
--- OUTSIDE RECORDS SUMMARY | 2024-07-23 07:06 | XMS_ITS | Encounter Summary ---
Author Organization [facility] Health Address [address] [place] [address] Care Team Providers Care Welfare Eligibility Worker Name Role Phone Joseph Manzanares MD Unavailable Yaya Villatoro MD Primary Care Provider [phone]- [phone] Encounter Details Date Type Department Care Team (Latest Contact Info) Description 06/08/2024 Travel Social History Tobacco Use Types Packs/Day [...] Date Recorded PHQ2 TOTAL SCORE 1 11/25/2022 [facility] - Occupational [...] place to sleep or slept in a residential (including now)? No 10/02/2022 Sex and Gender [...] st Contact Info) Description 07/25/2024 10:00 AM TEMPLER HEAD [facility] Endocr[facility]ology [address] [place] [phone] Yosi Bustamante MD [address] [place] [address] 2L [place] [address] 07/26/2024 10:00 AM TEMPLER HEAD Appointment [facility]IC RAD [address] [place] [address] Neri Delgado MD [address] [place] [address] 07/26/2024 10:00 AM TEMPLER HEAD Office Visit [facility] - ENT [address] [place] [phone] Myra Farmer, MUTUEL DEPARTMENT MANAGER [address] [place] [address] 2[address] [place] [phone] 07/26/2024 11:15 AM TEMPLER HEAD Office Visit [facility] - ENT [address] [place] [phone] Neri Delgado MD [address] [place] [address] 08/02/2024 2:20 PM TEMPLER HEAD Appointment [facility] [address] [place] [address] 08/02/2024 3:00 PM TEMPLER HEAD Office Visit [facility] - Hematology/Oncology [address] [place] [phone] Remi Beckett MD [address] [place] [phone] 08/18/2024 1:45 PM TEMPLER HEAD Office Visit [facility] - ENT [address] [place] [address] Neri Delgado MD [address] [place] [address] documented as of this encounter Visit Diagnoses Not on filedocumented in this encounter Care Teams Welfare Eligibility Worker Relationship Specialty Start Date End Date Yaya Villatoro MD [address] [phone] PCP - General Internal Medicine 05/04/23 Joseph Manzanares MD [address] [place] [phone] Internal Medicine 04/21/23 documented as of this encounter
--- OUTSIDE RECORDS SUMMARY | 2024-07-23 07:06 | XMS_ITS | Encounter Summary ---
Author Organization [facility] Address [address] [place] [address] Care Team Providers Care Fitness Manager Name Role Phone Joseph Manzanares MD Unavailable Yaya Villatoro MD Primary Care Provider [phone] Reason for Visit * Reason Comments Follow-up Encounter Details Date Type Department Care Team (Late st Contact Info) Description 07/06/2024 2:00 PM RESIDENTIAL REAL ESTATE SALES MANAGER Office Visit [facility] - Rad/Onc [address] [place] [phone] Marcio Mcintosh MD [address] [place] [address] Cancer, metastatic to bone (HCC) (Primary Dx); Metastasis to bone (HCC); Papillary carcinoma of thyroid (HCC); Thyroid cancer (CMS/HCC); Secondary malignant neoplasm of bone (HCC) Social History Tobacco Use Types Packs/Day Years [...] Recorded Patient Health Questionnaire-2 Score 0 07/06/2024 [facility] [place] of Occupat ional Health - Occupational Stress [...] place to sleep or slept in a skilled nursing (including now)? No 10/02/2022 Sex and Gender Information Value Date Recorded Sex Assigned at Not on file Gender Identity Not on file Sexual Orientation Not on file documented as of this encounter Last Filed Vital Signs Vital Sign Reading Time Taken Comments Blood Pressure 129/57 07/06/2024 1:53 PM RESIDENTIAL REAL ESTATE SALES MANAGER Pulse 85 07/06/2024 1:53 PM RESIDENTIAL REAL ESTATE SALES MANAGER Temperature 36.4 ??C (97.5 ??F) 07/06/2024 1:53 PM CS T Respiratory Rate 18 07/06/2024 1:53 PM RESIDENTIAL REAL ESTATE SALES MANAGER Oxygen Saturation 95% 07/06/2024 1:53 PM RESIDENTIAL REAL ESTATE SALES MANAGER Inhaled Oxygen Concentration - - Weight - - Height - - Body Mass Index - - documented in this encounter Functional Status Functional [...] No 10/02/2022 documented as of this encounter Patient Instructions * Patient Instructions* Marcio Mcintosh MD - 07/06/2024 2:44 PM RESIDENTIAL REAL ESTATE SALES MANAGER Latest Reference Range & Units 12/10/23 10:54 03/07/24 12:53 03/20/24 14:41 06/15/24 14:41 TSH 0.350 - 4.940 uIU/mL <0.010 (L) 0.616 0.028 (L) 0.029 (L) Thyroglobulin by ANTONIETA 1.5 - 38.5 ng/mL 352.5 (H) 174.0 (H) 236.1 (H) 100.7 (H) Thyroglobulin Antibody 0.0 - 0.9 IU/mL <1.0 <1.0 <1.0 <1.0 (L): Data is abnormally low (H): Data is abnormally high DENTIAL REAL ESTATE SALES MANAGER documented in this encounter Progress Notes * Marcio Mcintosh MD - 07/06/2024 2:43 PM CST Images from the original note were not included. Return Patient Visit Radiation Oncology [facility] ENCOUNTER DATE: 07/06/2024 PATIENT IDENTIFICATION Brisa Kinney 1960 Autopopulated Data Chief Complaint: Chief Complaint Patient presents with Follow-up Diagnosis: 1. Cancer, metastatic to bone (HCC) 2. Metastasis to bone (HCC) 3. Papillary carcinoma of thyroid (HCC) 4. Thyroid cancer (CMS/HCC) 5. Secondary malignant neoplasm of bone (HCC) CC: Follow up Diagnosis: Metastatic thyroid cancer to C spine, stage [id number], s/p Resection of primary thyroid andRAI of 157.6mCi SBRT To Cervical spine s/p 2400cGy in 2 fractions ending on 09/21/2022 Multiple site progression at the C1- T2 region., s/p 2000-3000cGy in 5 fractions ending on 10/22/2023 Referring MD: Ui Developer Designer: Yosi Bustamante MD ENT Surgeon: Neri Delgado MD NeuroSurgeon: MD Yaya Cui MD PAST DISEASE HISTORY: Brisa was found to have a right thyroid nodule an 2019. 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 Repeat biopsy of the right thyroid lobe on 08/01/2020 produced a diagnosis of follicular neoplasm and she underwent a completion thyroidectomy and bilateral neck dissection on 08/19/2020. Pathology report describes papillary thyroid carcinoma with tall cellfeatures and extra thyroidal extension emanating from the right lobe. Tumor broached the inked surgical margins at Superior and inferior tracheal margins. Tumor involved the tracheal mucosa. Negativesurgical margin obtained on the left tracheal wall excision site. The right superior tracheal wall showed evidence of submucosal involvement by tumor. Metastatic carcinoma in 2 of 3 nodes from the central neck.. Metastatic carcinoma in 0/14 left from level 2A, 1/14 from left level 3, 2/13 from leftlevel 4 and 5, 2/5 from right level 3, 2/22 from right level 2A, 1/12 from right level 4 and 5, with positive extranodal extension. Metastatic carcinoma was also noted in the epidural tissues from the recurrent right laryngeal nerve excision. Postoperatively patient received treatment with ablativeI 131 administration she received 157.6 mCi on 03/19/2021. During endocrinology clinic visit on 12/08/2021, patient was noted to have a recurrent right anterior neck mass overlying the thyroid cartilage. PET imaging showed diffuse avidity in the left centralneck with the prominent highly avid right neck nodule. Excisional biopsy of the right neck mass wasaccomplished on 02/05/2022. Pathology report confirmed recurrent papillary thyroid carcinoma infiltrating skeletal muscle. Plans were proceeding for her to receive additional radioactive I 131 treatment after thyroid hormone withdrawal. It does not appear that she received that additional dose of radioactive I 131 treatment. Patient later sustained a fall and developed bilateral shoulder pain and was diagnosed with partialtears in the left supraspinatus, infraspinatus, and subcapsular tendons. Steroid Dosepak helped relieve active inflammation. Plan was to proceed with a left total shoulder replacement. During the interval she had progressive weakness and eventual loss of use of her left arm and hand. He continues to have pain in her neck radiating down left arm. Further evaluation with whole-body thyroid scan on 08/19/2022 revealed focal uptake in the anterioraspect of the mid cervical spine is consistent with metastatic disease. Subsequent MRI of the cervical spine described metastatic osseous involvement of the left aspect of C5 and C6 vertebral body with tumor extension into the epidural space and left neural foramina from C4-5 to C6-7. There was encasement/abutment of the tumor along the left vertebral artery and moderate spinal canal stenosis/compression. She was evaluated by Dr. Gómez who recommended surgical decompression and cervical spine stabilization scheduled for 10/02/2022. She received SBRT to the Cervical Spine with 2400cGy in 2 fractions ending on 09/21/2022. She tolerated without event and was planned for future surgery. Brisa has underwent surgical stabiliation and decompression on 10/02/2022. She still has Limited use of the left arm. She has went to physical therapy for muscle strengthening. In 10/2023, Brisa has returned with some unfortunate news of the passing of her family members including her . She has reported only because of increasing pain in the left arm and right neck. Her MR scan showed on 10/01/2023 progressive disease within the C2, C4, C4-C5, C5-C6, C6-C7 and within T1 vertebral body. A PET-CT on 10/06/2023 confirmed multifocal disease recurrence and within the right thyroidectomy bed as well as a non FDG avid right lower lobe nodule at 5 mm. She underwent palliative radiotherapy with 1180-1072 cGy in 5 fractions delivered via IMRT to the C2 through T1 T2 region. She tolerated well and noted no progression of neurologic symptoms. SUBJECTIVE/HPI: Ms. Brisa Kinney is a 63 year old female who returns for a follow up visit. Since our last visit, Brisa has felt no significant changes except for persistent pains in the shoulders and upper extremity. She still has limited use of her right upper extremity. She has been on Lenvima . Notes difficulty with swallowing. She has lost weight. She is planned to obtain additionalscans with CT neck chest abdomen pelvis as well as bone scans. She also notes back pain that is more localized in the lower region and difficulty ambulating due to pain. It is not a difficulty related to neurologic changes. She has no bowel or urinary incontinence REVIEW OF SYSTEMS: GENERAL: Denies Headaches, nausea, vomiting PULMONARY: Denies cough or worsened shortness of breath NEUROLOGIC: Denies new neurologic deficit or weakness/loss of motion in arms or legs PAST MEDICAL HISTORY Past Medical History: Diagnosis Date Anxiety and depression Degenerative disc disease, lumbar Disorder of thyroid mass on thyroid - right GERD (gastroesophageal reflux disease) High cholesterol HLD (hyperlipidemia) Hypocalcemia 10/14/2020 Osteoarthritis of one hip, left Other hypoparathyroidism (HCC) 10/14/2020 Postoperative hypothyroidism 10/14/2020 Psoriasis Seasonal allergies Snoring SOB (shortness of breath) 2/2 thyroid mass Thyroid cancer (HCC) 10/14/2020 Tracheal mass MEDICATIONS: Current Outpatient Medications Medication Sig acetaminophen (Tylenol) [...] MG Daily Dose, 10 & 4 MG capsule TAKE 1 CAPSULE (10MG) AND 1 CAPSULE (4MG) ONCE DAILY FOR A TOTAL OF 14MG levothyroxine (Synthroid) 112 MCG tablet Take 1 (one) tablet by mouth daily before breakfast Reasons: Cancer of Thyroid, Underactive Thyroid naloxone HCl (Narcan) 4 MG/0.1ML nasal spray [place] 1 (one) spray into the nose as [...] No current facility-administered medications for this visit. Facility-Administered Medications Ordered in Other Visits Medication gadoterate meglumine (Dotarem/Clariscan) injection OBJECTIVE: Vitals: 07/06/24 1353 BP: 129/57 Pulse: 85 Resp: 18 Temp: 97.5 ??F (36.4 ??C) SpO2: 95% PainSc: Seven Wt Readings from Last 3 Encounters: 06/15/24 49.3 kg (108 lb 11.2 oz) 04/17/24 53.1 kg (117 lb) 03/20/24 55.2 kg (121 lb 12.8 oz) KPS is 60 General Appearance: in no apparent distress, alert, anicteric, and cooperative HEENT: Normocephalic, atraumatic Lymph: No adenopathy of the cervical or supraclavicular fossa, no palpable neck masses Back: There is no costovertebral angle or spinal tenderness to percussion. Extremities:extremities normal, atraumatic, no cyanosis or edema Neurological exam reveals alert, oriented, normal speech, no focal findings or movement disorder noted, cranial nerves II through XII intact, abnormal findings: Bilateral UE weakness R >L and morein the thumb and second digit.. RADIOGRAPHIC IMAGES: No immediate reported results found. MR of the cervical spine 07/06/2024: On my personal review the are multiple metastatic lesions identified without signs of progression. There is some artifact limiting the full visualization. There is no further impingement on the spinal cord or canal. There does not appear to be new areas of growth or development IMPRESSION: 1. 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 No definite evidence of severe central canal stenosis or intramedullary tumor is seen. IMPRESSION: Normal cervical spine MRI performed without and with IV contrast. LABORATORY: WBC Date Value Ref Range Status 06/15/2024 9.8 4.0 - 10.7 x10E9/L Final 10/07/2022 8.1 3.5 - 10.5 10??3/uL Final Hemoglobin Date Value Ref Range Status 06/15/2024 16.0 (H) 11.9 - 15.8 g/dL Final 10/07/2022 9.2 (L) 12.0 - 15.6 g/dL Final Hematocrit Date Value Ref Range Status 06/15/2024 45.9 34.8 - 46.1 % Final 10/07/2022 27.3 (L) 35.0 - 45.0 % Final INR Date Value Ref Range Status 10/02/2022 1.0 See Comment Final Comment: The suggested therapeutic range for standard coumadin (warfarin) therapy is an INR of 2.0-3.0. For high-risk patients (Mechanical Mitral Valve Prosthesis, etc.), the suggested prophylactic therapeutic range is an INR of 2.5-3.5. Sodium Date Value Ref Range Status 06/15/2024 138 136 - 145 mmol/L Final Chloride Date Value Ref Range Status 06/15/2024 103 98 - 107 mmol/L Final BUN Date Value Ref Range Status 06/15/2024 28 (H) 7 - 26 mg/dL Final Creatinine Date Value Ref Range Status 06/15/2024 0.86 0.56 - 0.96 mg/dL Final TSH Date Value Ref Range Status 06/15/2024 0.029 (L) 0.350 - 4.940 uIU/mL Final Latest Reference Range & Units 12/10/23 10:54 03/07/24 12:53 03/20/24 14:41 06/15/24 14:41 TSH 0.350 - 4.940 uIU/mL <0.010 (L) 0.616 0.028 (L) 0.029 (L) Thyroglobulin by ANTONIETA 1.5 - 38.5 ng/mL 352.5 (H) 174.0 (H) 236.1 (H) 100.7 (H) Thyroglobulin Antibody 0.0 - 0.9 IU/mL <1.0 <1.0 <1.0 <1.0 (L): Data is abnormally low (H): Data is abnormally high IMPRESSION/PLAN Brisa Kinney presents to us today with radiographic information of stability within theserve goal spine. However with her progressive pains in findings, I suggest that she also explore the additional scans that are scheduled for tomorrow. She may have additional pains due to metastasesin her back or if negative findings on the CT chest abdomen pelvis and bone scan consider a MRI of the thoracolumbar spine for more of a soft tissue based finding. We would like to see rBisa in 3 month(s) for a follow up visit. We have ordered her follow up and plan for future CT scan to have easier faster detection of her bony changes.. Minimum duration of time spent in chart (preparing with review of radiographic and laboratory tests, discussion of planned care with staff and physicians, discussion with patient for counseling and educating, as well as ordering future tests, radiographic studies, or procedures) : I spent a total of 25 minutes on the day of the visit. Portions of this note reflect historical treatments, history of disease, ongoing symptomatology, and exam findings that remain unchanged from the past note ( 03/07/2024 , and may be located in Media Tab) unless otherwise noted. This note is also partially dictated via dictation software and has been attempted to be edited fully for grammar, spelling or word choice. The intent of this note is for billing and management purposes, and not intended for patient/physician communication. If you have any questions or concerns about the content of this note, please contact the author andyour physicians for clarification. Marcio Mcintosh MD 07/06/2024 2:43 PM DENTIAL REAL ESTATE SALES MANAGER documented in this encounter Plan of Treatment Upcoming Encounters Date Type Department Care Team (Late st Contact Info) Description 07/25/2024 10:00 AM RESIDENTIAL REAL ESTATE SALES MANAGER Office Visit [facility] - Endocrinology [address] [place] [address], [facility] [place] [phone] Yosi Bustamante MD [address] [place] [address] [place] [address] 07/26/2024 10:00 AM RESIDENTIAL REAL ESTATE SALES MANAGER Appointment [facility] DIAGNOSTIC RAD [address] [place] [address] Neri Delgado MD [address] [place] [phone] 07/26/2024 10:00 AM RESIDENTIAL REAL ESTATE SALES MANAGER Office Visit [facility] - ENT [address] [place] [phone] Myra Farmer, GRAIN ELEVATOR MOTOR STARTER [address] [place] [address] [place] [phone] 07/26/2024 11:15 AM RESIDENTIAL REAL ESTATE SALES MANAGER Office Visit [facility] - ENT [address] [place] [phone] Neri Delgado MD [address] [place] [phone] 08/02/2024 2:20 PM RESIDENTIAL REAL ESTATE SALES MANAGER Appointment [facility] [address] [place] [phone] 08/02/2024 3:00 PM RESIDENTIAL REAL ESTATE SALES MANAGER Office Visit [facility] - Hematology/Oncology [address] [place] [phone] Remi Beckett MD [address] [place] [phone] 08/18/2024 1:45 PM RESIDENTIAL REAL ESTATE SALES MANAGER Office Visit [facility] - ENT [address] [place] [phone] Neri Delgado MD [address] [place] [phone] documented as of this encounter Visit Diagnoses Diagnosis Cancer, metastatic to bone (HCC)- Primary Secondary malignant neoplasm of bone and bone marrow Metastasis to bone (HCC) Secondary malignant neoplasm of bone and bone marrow Papillary carcinoma of thyroid (HCC) Malignant neoplasm of thyroid gland Thyroid cancer (CMS/HCC) Malignant neoplasm of thyroid gland Secondary malignant neoplasm of bone (HCC) Secondary malignant neoplasm of bone and bone marrow documented in this encounter Care Teams Fitness Manager Relationship Specialty Start Date End Date Yaya Villatoro MD [address] [facility] [address] [place] [phone] PCP - General Internal Medicine 05/04/23 Joseph Manzanares MD [address] [place] [phone] Internal Medicine 04/21/23 documented as of this encounter
--- OUTSIDE RECORDS SUMMARY | 2024-07-23 07:06 | XMS_ITS | Encounter Summary ---
Author Organization [facility] Health Address [address] [facility] [place] [address] Care Team Providers Care Textile Worker Name Role Phone Joseph Manzanares MD Unavailable Yaya Villatoro MD Primary Care Provider +1- [phone] Encounter Details Date Type Department Care Team (Latest Contact Info) Description 06/15/2024 2:36 PM EYELET PUNCH OPERATOR - 06/15/2024 11:59 PM [facility] Hospital Encounter [facility] DRAWSTATION [address] [facility], 2nd [place] [address] Discharge Disposition: Home or Self Care Social [...] Date Recorded PHQ2 TOTAL SCORE 1 11/25/2022 [facility] - Occupational Stress Questionnaire Answer Date Recorded [...] place to sleep or slept in a intermediate (including now)? No 10/02/2022 Sex and Gender [...] 2 times daily 08/28/2022 calcium 500 mg tabletIndications:[place] stasis to bone (HCC) Take 1 (one) [...] (four) tablets by mouth 4 times daily levothyroxine (Synthroid) 112 MCG tabletIndications:Hypo thyroidism,Malignant Neoplasm of Thyroid Take 1 (one) tablet by mouth daily before breakfast Reasons: Cancer of Thyroid, Underactive Thyroid 100 tablet 3 10/25/2023 10/24/2024 naloxone HCl (Narcan) 4 MG/0.1ML nasal spray [place] 1 (one) spray into the nose as [...] vitamin D3 (Cholecalciferol) 10 MCG (400 UNIT) tabletIndications:[place] stasis to bone (HCC) Take 1 (one) tablet by mouth once daily 30 tablet 06/15/2024 lenvatinib (Lenvima) 10 & 4 MG capsuleIndications:Pap illary carcinoma of thyroid (HCC) Take one 10 mg capsule and one 4 mg capsule (14 mg total) once daily. 60 Each 2 04/17/2024 07/06/2024 documented as of this encounter Plan of Treatment Upcoming Encounters Date Type Department Care Team (Late st Contact Info) Description 07/25/2024 10:00 AM EYELET PUNCH OPERATOR Office Visit [facility] - Endocrinology [address] [place] [phone] Ysoi Bustamante MD [address] [place] [address] 2L [place] [address] 07/26/2024 10:00 AM EYELET PUNCH OPERATOR Appointment [facility] DIAGNOSTIC RAD [address] [place] [address] Neri Delgado MD [address] [place] [address] 07/26/2024 10:00 AM EYELET PUNCH OPERATOR Office Visit [facility] - ENT [address] [place] [phone] Myra Farmer, DRAWING FRAME TENDER [address] [place] [address] 2L [place] [phone] 07/26/2024 11:15 AM EYELET PUNCH OPERATOR Office Visit [facility] - ENT [address] [place] [phone] Neri Delgado MD [address] [place] [address] 08/02/2024 2:20 PM EYELET PUNCH OPERATOR Appointment [facility] [address] [place] [address] 08/02/2024 3:00 PM EYELET PUNCH OPERATOR Office Visit [facility] - Hematology/Oncology [address] [place] [phone] Remi Beckett MD [address] [place] [phone] 08/18/2024 1:45 PM EYELET PUNCH OPERATOR Office Visit [facility] - ENT [address] [place] [phone] Neri Delgado MD [address] [place] [address] documented as of this encounter Procedures Procedure Name Priority Date/Time Associated Diagnosis Comments THYROGLOBULIN REFLEX PROFILE Routine 06/15/2024 2:41 PM EYELET PUNCH OPERATOR Thyroid cancer (HCC) Postoperative hypothyroidism Malignant tumor of thyroid gland (HCC) Cancer, metastatic to bone (HCC) Hypocalcemia Other hypoparathyroidism (HCC) Papillary carcinoma of thyroid (HCC) THYROGLOBULIN BY ANTONIETA RFLXED Routine 06/15/2024 2:41 PM EYELET PUNCH OPERATOR Thyroid cancer (HCC) Postoperative hypothyroidism Malignant tumor of thyroid gland (HCC) Cancer, metastatic to bone (HCC) Hypocalcemia Other hypoparathyroidism (HCC) Papillary carcinoma of thyroid (HCC) CBC W AUTO DIFFERENTIAL STAT 06/15/2024 2:41 PM EYELET PUNCH OPERATOR Papillary carcinoma of thyroid (HCC) COMPREHENSIVE METABOLIC PANEL STAT 06/15/2024 2:41 PM EYELET PUNCH OPERATOR Papillary carcinoma of thyroid (HCC) PHOSPHORUS BLOOD Routine 06/15/2024 2:41 PM EYELET PUNCH OPERATOR Postoperative hypothyroidism Thyroid cancer (HCC) Hypocalcemia Other hypoparathyroidism (HCC) Malignant tumor of thyroid gland (HCC) Cancer, metastatic to bone (HCC) TSH Routine 06/15/2024 2:41 PM EYELET PUNCH OPERATOR Thyroid cancer (HCC) Postoperative hypothyroidism Malignant tumor of thyroid gland (HCC) Cancer, metastatic to bone (HCC) Hypocalcemia Other hypoparathyroidism (HCC) Papillary carcinoma of thyroid (HCC) documented in this encounter Results * (ABNORMAL) THYROGLOBULIN BY ANTONIETA RFLXED (06/15/2024 2:41 PM EYELET PUNCH OPERATOR) Thyroglobulin by ANTONIETA 100.7(H) 1.5 - 38.5 ng/mL 06/16/2024 4:09 PM EYELET PUNCH OPERATOR [facility] ([facility]) Comment: According to the National Academy of [...] is 0.1 ng/mL Thyroglobulin measured by Lisbet Gazelle Immunometric Assay Blood BLOOD SPECIMEN / Unknown Lab Venipuncture / Unknown 06/15/2024 2:41 PM EYELET PUNCH OPERATOR 06/15/2024 2:42 PM EYELET PUNCH OPERATOR Narrative [facility] ([facility]) - 06/16/2024 4:09 PM EYELET PUNCH OPERATOR Performed at: ??01 - [facility] [address] [facility], [place], [place] ??[id number] Asphalt Heater Operator: Oral Melendez PhD, Phone: ??[phone] Yosi Bustamante MD LAB - CHEMISTRY ORD ERABLES Performing Organization Address [facility] Co de Phone Number [facility]) [address] [place] [address] * (ABNORMAL) PHOSPHORUS BLOOD (06/15/2024 2:41 PM EYELET PUNCH OPERATOR) Pathologist [facility] Phosphorus 6.5(H) 2.9 - 5.1 mg/dL 06/15/2024 3:20 PM EYELET PUNCH OPERATOR [facility] Blood BLOOD SPECIMEN / Unknown Lab Venipuncture / Unknown 06/15/2024 2:41 PM EYELET PUNCH OPERATOR 06/15/2024 2:47 PM EYELET PUNCH OPERATOR Yosi Bustamante MD LAB - CHEMISTRY ORD ERABLES Performing Organization Address City/[facility]/ZIP Co de Phone Number [facility] [address] [place] [address], [facility] [phone] * THYROGLOBULIN REFLEX PROFILE (06/15/2024 2:41 PM EYELET PUNCH OPERATOR) Thyroglobulin Antibody <1.0 0.0 - 0.9 IU/mL 06/16/2024 4:09 PM EYELET PUNCH OPERATOR [facility] ([facility]) Comment: Thyroglobulin Antibody measured by Lisbet Marcos Methodology It should be noted that the presence of thyroglobulin antibodies may not be pathogenic nor diagnostic, especially at very low levels. The assay veterinary x ray operator has found that four percent of individuals without evidence of thyroid disease or autoimmunity will have positive TgAb levels up to 4 IU/mL. Blood BLOOD SPECIMEN / Unknown Lab Venipuncture / Unknown 06/15/2024 2:41 PM EYELET PUNCH OPERATOR 06/15/2024 2:42 PM EYELET PUNCH OPERATOR Narrative [facility] ([facility]) - 06/16/2024 4:09 PM EYELET PUNCH OPERATOR Performed at: ??01 - [facility] [address] [place], [place] ??[id number] Asphalt Heater Operator: Oral Melendez PhD, Phone: ??[phone] Yosi Bustamante MD LAB - CHEMISTRY ORD ERABLES Performing Organization Address City/[facility]/ZIP Co de Phone Number [facility] ([facility]) [address] [place] [address] * (ABNORMAL) TSH (06/15/2024 2:41 PM EYELET PUNCH OPERATOR) Pathologist [facility] TSH 0.029(L) 0.350 - 4.940 uIU/mL 06/15/2024 3:38 PM EYELET PUNCH OPERATOR [facility] Blood BLOOD SPECIMEN / Unknown Lab Venipuncture / Unknown 06/15/2024 2:41 PM EYELET PUNCH OPERATOR 06/15/2024 2:47 PM EYELET PUNCH OPERATOR Yosi Bustamante MD LAB - CHEMISTRY ORD ERABLES [address] [address] [phone] * (ABNORMAL) COMPREHENSIVE METABOLIC PANEL (06/15/2024 2:41 PM EYELET PUNCH OPERATOR) BUN 28(H) 7 - 26 mg/dL 06/15/2024 3:20 PM EYELET PUNCH OPERATOR [facility] Creatinine 0.86 0.56 - 0.96 mg/dL 06/15/2024 3:20 PM EYELET PUNCH OPERATOR [facility] Sodium 138 136 - 145 mmol/L 06/15/2024 3:20 PM EYELET PUNCH OPERATOR [facility] Potassium 4.1 3.5 - 4.5 mmol/L 06/15/2024 3:20 PM EYELET PUNCH OPERATOR [facility] Chloride 103 98 - 107 mmol/L 06/15/2024 3:20 PM [facility] CO2 22 22 - 29 mmol/L 06/15/2024 3:20 PM [facility] Glucose 104(H) 70 - 99 mg/dL 06/15/2024 3:20 PM [facility] Calcium 10.2 8.4 - 10.2 mg/dL 06/15/2024 3:20 PM [facility] Protein Total 8.1 6.0 - 8.3 g/dL 06/15/2024 3:20 PM [facility] Albumin 4.0 3.4 - 5.0 g/dL 06/15/2024 3:20 PM [facility] Bilirubin Total 0.3 0.2 - 1.2 mg/dL 06/15/2024 3:20 PM [facility] Alkaline Phosphatase 78 40 - 150 U/L 06/15/2024 3:20 PM [facility] ALT 13 5 - 55 U/L 06/15/2024 3:20 PM [facility] AST 16 5 - 34 U/L 06/15/2024 3:20 PM [facility] Anion Gap 13 6 - 16 06/15/2024 3:20 PM [facility] BUN/Creatinine Ratio 33(H) 7 - 23 06/15/2024 3:20 PM [facility] Osmolality Calculated 292 275 - 295 mOsm/kg 06/15/2024 3:20 PM [facility] Albumin/Globulin Ratio 1.0(L) 1.1 - 2.3 06/15/2024 3:20 PM [facility] eGFR by CKD-EPI 75(L) >=90 mL/min/1.7 3 m2 06/15/2024 3:20 PM [facility] Blood BLOOD SPECIMEN / Unknown Lab Venipuncture / Unknown 06/15/2024 2:41 PM EYELET PUNCH OPERATOR 06/15/2024 2:47 PM [facility] Remi Beckett MD LAB - CHEMISTRY ORDERABLES [facility] [address] [place] [address], [facility] [phone] * (ABNORMAL) CBC WITH DIFFERENTIAL (06/15/2024 2:41 PM [facility]) [facility] WBC 9.8 4.0 - 10.7 x10E9/L 06/15/2024 2:55 PM [facility] RBC Count 5.23(H) 3.90 - 5.20 x10E12/L 06/15/2024 2:55 PM [facility] Hemoglobin 16.0(H) 11.9 - 15.8 g/dL 06/15/2024 2:55 PM [facility] Hematocrit 45.9 34.8 - 46.1 % 06/15/2024 2:55 PM [facility] MCV 87.8 80.0 - 98.0 fL 06/15/2024 2:55 PM [facility] MCH 30.6 26.7 - 33.6 pg 06/15/2024 2:55 PM [facility] MCHC 34.9 31.7 - 36.3 g/dL 06/15/2024 2:55 PM [facility] RDW-CV 13.5 11.3 - 14.8 % 06/15/2024 2:55 PM [facility] Platelet Count 285 150 - 420 x10E9/L 06/15/2024 2:55 PM [facility] MPV 9.5 7.8 - 11.4 fL 06/15/2024 2:55 PM [facility] Neutrophil % 68.5 41.0 - 74.0 % 06/15/2024 2:55 PM [facility] Lymphocyte % 20.6 17.0 - 47.0 % 06/15/2024 2:55 PM [facility] Monocyte % 9.0 3.0 - 11.0 % 06/15/2024 2:55 PM [facility] Eosinophil % 1.2 0.0 - 7.0 % 06/15/2024 2:55 PM [facility] Basophil % 0.5 0.0 - 1.6 % 06/15/2024 2:55 PM [facility] Immature Granulocytes % 0.2 0.0 - 1.0 % 06/15/2024 2:55 PM [facility] Neutrophil Absolute 6.69 1.60 - 7.50 x10E9/L 06/15/2024 2:55 PM [facility] Lymphocyte Absolute 2.01 1.00 - 4.40 x10E9/L 06/15/2024 2:55 PM [facility] Monocyte Absolute 0.88 0.15 - 1.00 x10E9/L 06/15/2024 2:55 PM [facility] Eosinophil Absolute 0.12 0.00 - 0.60 x10E9/L 06/15/2024 2:55 PM [facility] Basophil Absolute 0.05 0.00 - 0.13 x10E9/L 06/15/2024 2:55 PM [facility] Blood BLOOD SPECIMEN / Unknown Lab Venipuncture / Unknown 06/15/2024 2:41 PM EYELET PUNCH OPERATOR 06/15/2024 2:47 PM EYELET PUNCH OPERATOR Remi Beckett MD LAB - HEMATOLOGY ORDERABLES Performing Organization Address City/[facility] Co de Phone Number [facility] [address] [place] [address], [facility] [phone] documented in this encounter Visit Diagnoses Diagnosis Postoperative hypothyroidism Postsurgical hypothyroidism Thyroid cancer (HCC) Malignant neoplasm of thyroid gland Hypocalcemia Other hypoparathyroidism (HCC) Malignant tumor of thyroid gland (HCC) Malignant neoplasm of thyroid gland Cancer, metastatic to bone (HCC) 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
--- OUTSIDE RECORDS SUMMARY | 2024-07-23 07:06 | XMS_ITS | Encounter Summary ---
Author Organization [facility] Address [address] [place] [address] Care Team Providers Care Profile Saw Operator Name Role Phone Joseph Manzanares MD Unavailable Yaya Villatoro MD Primary Care Provider +1- [phone] Reason for Visit * Oncology Prior Authorization (Routine) - Authorized Specialty Diagnoses / Procedures Referred By Contac t Referred To Contact Diagnoses Metastasis to bone (HCC) Procedures [place] INJECTION DENOSUMAB 1 MG Remi Beckett MD [address] [place] [address] [facility] [address] [place] [address] Referral ID Status Reason Start Date Expiration Date V isits Requested Visits Authorized [id number] Authorized 04/21/2024 10/22/2024 6 6 Encounter Details Date Type Department Care Team (Latest Contact Info) Description 06/15/2024 2:20 PM MAINTENANCE FITTER - 06/15/2024 2:35 PM [facility] Hospital Encounter [facility] [address] [place] [address] Remi Beckett MD [facility] [place] [address] Discharge Disposition: Home or Self [...] Date Recorded PHQ2 TOTAL SCORE 1 11/25/2022 [facility] Occup[facility] ional [facility] - Occupational [...] place to sleep or slept in a nursing home (including now)? No 10/02/2022 Sex and [...] tablet by mouth 2 times daily 08/28/2022 celecoxib (CeleBREX) 200 MG capsuleIndications:Nicole faivo osteoarthritis of left hip Take 1 (one) [...] naloxone HCl (Narcan) 4 MG/0.1ML nasal spray [place] 1 (one) spray into the nose as [...] (one) tablet by mouth at bedtime 06/25/2020 lenvatinib (Lenvima) 10 & 4 MG capsuleIndications:Pap illary carcinoma of thyroid (HCC) Take one 10 mg capsule and one 4 mg capsule (14 mg total) once daily. 60 Each 2 04/17/2024 07/06/2024 documented as of this encounter Plan of Treatment Upcoming Encounters Date Type Department Care Team (Late st Contact Info) Description 07/25/2024 10:00 AM MAINTENANCE FITTER Office Visit [facility] - Endocrinology [address] [place] [phone] Yosi Bustamante MD [address] [place] [address] 2L [place] [address] 07/26/2024 10:00 AM MAINTENANCE FITTER Appointment [facility] DIAGNOSTIC RAD [address] [place] [address] Neri Delgado MD [address] [place] [address] 07/26/2024 10:00 AM MAINTENANCE FITTER Office Visit [facility] - ENT [address] [place] [phone] Myra Farmer, HAND I BLOCKER [address] [place] [address] 2L [place] [address] 07/26/2024 11:15 AM MAINTENANCE FITTER Office Visit [facility] - ENT [address] [place] [phone] Neri Delgado MD [address] [place] [address] 08/02/2024 2:20 PM MAINTENANCE FITTER Appointment [facility] [address] [place] [address] 08/02/2024 3:00 PM MAINTENANCE FITTER Office Visit [facility] - Hematology/Oncology [address] [place] [address] Remi Beckett MD [address] [place] [address] 08/18/2024 1:45 PM MAINTENANCE FITTER Office Visit [facility] Group - ENT [address] [place] [address] Neri Delgado MD [address] [place] [address] documented as of this encounter Procedures Procedure Name Priority Date/Time Associated Diagnosis Comments VITAMIN D 25-HYDROXY MARAL 06/15/2024 2:41 PM MAINTENANCE FITTER MAGNESIUM BLOOD STAT 06/15/2024 2:41 PM MAINTENANCE FITTER documented in this encounter Results * MAGNESIUM BLOOD (06/15/2024 2:41 PM MAINTENANCE FITTER) Magnesium 1.7 1.6 - 2.6 mg/dL 06/15/2024 3:20 PM MAINTENANCE FITTER [facility] Blood BLOOD SPECIMEN / Unknown Lab Venipuncture / Unknown 06/15/2024 2:41 PM MAINTENANCE FITTER 06/15/2024 2:47 PM MAINTENANCE FITTER Remi Beckett MD LAB - CHEMISTRY ORDERABLES [facility] [address] [place] [address], [facility] [phone] * VITAMIN D 25-HYDROXY (06/15/2024 2:41 PM MAINTENANCE FITTER) Vitamin D, 25 Hydroxy 47.3 30.0 - 80.0 ng/mL 06/15/2024 3:38 PM MAINTENANCE FITTER [facility] Comment: The recommendations for 25-Hydroxy Vitamin [...] Lab Venipuncture / Unknown 06/15/2024 2:41 PM MAINTENANCE FITTER 06/15/2024 2:47 PM MAINTENANCE FITTER Remi Beckett MD LAB - CHEMISTRY ORDERABLES Performing Organization Address [facility] Co de Phone Number [facility] [address] [place] [phone], [facility] [phone] documented in this encounter Visit Diagnoses Diagnosis Metastasis to bone (HCC)- Primary Secondary malignant neoplasm of bone and bone marrow documented in this encounter Care Teams Profile Saw Operator Relationship Specialty Start Date End Date Yaya Villatoro MD [address] [phone] PCP - General Internal Medicine 05/04/23 Joseph Manzanares MD [address] [place] [address] Internal Medicine 04/21/23 documented as of this encounter
--- OUTSIDE RECORDS SUMMARY | 2024-07-23 07:06 | XMS_ITS | Encounter Summary ---
Author Organization [facility] Health Address [address] [facility] [address] Care Team Providers Care Suspender Maker Name Role Phone Joseph Manzanares MD Unavailable Yaya Villatoro MD Primary Care Provider [phone]- [phone] Reason for Visit * Reason Comments Refill Request Encounter Details Date Type Department Care Team (Late st Contact Info) Description 07/06/2024 Refill [facility] - Hematology/Oncology [address] [place] [address] Remi Beckett MD [address] [place] [address] Refill Request Social History Tobacco [...] Recorded Patient Health Questionnaire-2 Score 0 07/06/2024 [facility] of Occupat ional Health - Occupational Stress [...] place to sleep or slept in a [facility]p (including now)? No 10/02/2022 Sex and Gender [...] st Contact Info) Description 07/25/2024 10:00 AM MINT WAFER DEPOSITOR Office Visit [facility] Group - Endocrinology [address] [place] [phone] Yosi Bustamante MD [address] [place] [address] 2L [place] [address] 07/26/2024 10:00 AM MINT WAFER DEPOSITOR Appointment [facility] DIAGNOSTIC RAD [address] [place] [address] Neri Delgado MD [address] [place] [address] 07/26/2024 10:00 AM MINT WAFER DEPOSITOR Office Visit [facility] - ENT [address] [place] [phone] Myra Farmer, BULK INTAKE WORKER [address] [place] [address] 2L [place] [address] 07/26/2024 11:15 AM MINT WAFER DEPOSITOR Office Visit [facility] - ENT [address] [place] [phone] Neri Delgado MD [address] [place] [address] 08/02/2024 2:20 PM MINT WAFER DEPOSITOR Appointment [facility]ION CENTER [address] [place] [address] 08/02/2024 3:00 PM MINT WAFER DEPOSITOR Office Visit [facility] - Hematology/Oncology [address] [place] [address] Remi Beckett MD [address] [place] [address] 08/18/2024 1:45 PM MINT WAFER DEPOSITOR Office Visit [facility] - ENT [address] [place] [phone] Neri Delgado MD [address] [place] [address] documented as of this encounter Visit Diagnoses Diagnosis Papillary carcinoma of thyroid (HCC) Malignant neoplasm of thyroid gland documented in this encounter Care Teams Suspender Maker Relationship Specialty Start Date End Date Yaya Villatoro MD [address] [place] [phone] PCP - General Internal Medicine 05/04/23 Joseph Manzanares MD [address] [place] [address] Internal Medicine 04/21/23 documented as of this encounter
--- OUTSIDE RECORDS SUMMARY | 2024-07-23 07:06 | XMS_ITS | Encounter Summary ---
Author Organization [facility] Health Address [address] [facility] [place] [address] Care Team Providers Care Credit Cashier Name Role Phone Joseph Manzanares MD Unavailable Yaya Villatoro MD Primary Care Provider +1- [phone] Encounter Details Date Type Department Care Team (Latest Contact Info) Description 05/24/2024 Travel Social History Tobacco Use Types Packs/Day [...] Date Recorded PHQ2 TOTAL SCORE 1 11/25/2022 [facility] of Occupat ional Health - Occupational [...] st Contact Info) Description 07/25/2024 10:00 AM AIRPORT GUIDE Office [facility] [address] [place] [phone] Yosi Bustamante MD [address] [place] [address] 2L [place] [address] 07/26/2024 10:00 AM AIRPORT GUIDE Appointment [facility] DIAGNOSTIC RAD [address] [place] [address] Neri Delgado MD [address] [place] [address] 07/26/2024 10:00 AM AIRPORT GUIDE Office Visit [facility] - ENT [address] [place] [phone] Myra Farmer, IMPLEMENTATION PROJECT MANAGER [address] [place] [address] 2L [place] [address] 07/26/2024 11:15 AM AIRPORT GUIDE Office Visit [facility] - ENT [address] [place] [phone] Neri Delgado MD [address] [place] [address] 08/02/2024 2:20 PM AIRPORT GUIDE Appointment [facility] [address] [place] [address] 08/02/2024 3:00 PM AIRPORT GUIDE Office [facility] - Hematology/Oncology [address] [place] [phone] Remi Beckett MD [address] [place] [phone] 08/18/2024 1:45 PM AIRPORT GUIDE Office Visit [facility] - ENT [address] [place] [address] Neri Delgado MD [address] [place] [address] documented as of this encounter Visit Diagnoses Not on filedocumented in this encounter Care Teams Credit Cashier Relationship Specialty Start Date End Date Yaya Villatoro MD [address] [phone] PCP - General Internal Medicine 05/04/23 Joseph Manzanares MD [address] [place] [phone] Internal Medicine 04/21/23 documented as of this encounter
--- OUTSIDE RECORDS SUMMARY | 2024-07-23 07:06 | XMS_ITS | Encounter Summary ---
Author Organization [facility] Health Address [address] [place] [address] Care Team Providers Care Harbormaster Name Role Phone Joseph Manzanares MD Unavailable Yaya Villatoro MD Primary Care Provider +1- [phone] Encounter Details Date Type Department Care Team (Latest Contact Info) Description 04/17/2024 Travel Social History Tobacco Use Types Packs/Day [...] Date Recorded PHQ2 TOTAL SCORE 1 11/25/2022 [facility] of Occupat ional Health - [...] st Contact Info) Description 07/25/2024 10:00 AM GATE TECHNICIAN [facility] [address] [place] [phone] Yosi Bustamante MD [address] [place] [address] 2L [place] [address] 07/26/2024 10:00 AM GATE TECHNICIAN Appointment [facility] [address] [place] [address] Neri Delgado MD [address] [place] [address] 07/26/2024 10:00 AM GATE TECHNICIAN Office Visit [facility] - ENT [address] [place] [phone] Myra Farmer, TRANSPORTATION DISPATCHER [address] [place] [address] 2L [place] [phone] 07/26/2024 11:15 AM GATE TECHNICIAN Office Visit [facility] ENT [address] [place] [phone] Neri Delgado MD [address] [place] [address] 08/02/2024 2:20 PM GATE TECHNICIAN Appointment [facility] [address] [place] [address] 08/02/2024 3:00 PM GATE TECHNICIAN Office Visit [facility] - Hematology/Oncology [address] [place] [phone] Remi Beckett MD [address] [place] [phone] 08/18/2024 1:45 PM GATE TECHNICIAN Office Visit [facility] - ENT [address] [place] [address] Neri Delgado MD [address] [place] [address] documented as of this encounter Visit Diagnoses Not on filedocumented in this encounter Care Teams Harbormaster Relationship Specialty Start Date End Date Yaya Villatoro MD [address] [phone] PCP - General Internal Medicine 05/04/23 Joseph Manzanares MD [address] [place] [phone] Internal Medicine 04/21/23 documented as of this encounter
--- OUTSIDE RECORDS SUMMARY | 2024-07-23 07:06 | XMS_ITS | Encounter Summary ---
Author Organization [facility] Health Address [address] [facility] [place] [address] Care Team Providers Care Napper Tender Name Role Phone Joseph Manzanares MD Unavailable Yaya Villatoro MD Primary Care Provider +1- [phone] Reason for Referral * Radiology Services (Routine) - Closed Specialty Diagnoses / Procedures Referred By Contac t Referred To Contact Hematology-Oncology Diagnoses Cancer, metastatic to bone (HCC) Procedures NM Bone Scan Whole Body Remi Beckett MD [address] [place] [address] Referral ID Status Reason Start Date Expiration Date Visits Re quested Visits Authorized [id number] Closed 05/29/2024 05/29/2025 1 1 BATTERY BUILDER Reason for Visit * Radiology Services (Routine) - Closed Specialty Diagnoses / Procedures Referred By Contac t Referred To Contact Hematology-Oncology Diagnoses Cancer, metastatic to bone (HCC) Procedures NM Bone Scan Whole Body Remi Beckett MD [address] [place] [address] Referral ID Status Reason Start Date Expiration Date Visits Re quested Visits Authorized [id number] Closed 05/29/2024 05/29/2025 1 1 Encounter Details Date Type Department Care Team (Latest Contact Info) Description 07/07/2024 10:00 AM AUTO BATTERY BUILDER - 07/07/2024 11:22 AM AUTO BATTERY BUILDER Hospital Encounter [facility] [address] [place] [address] Remi Beckett MD [address] [place] [address] Discharge Disposition: Home or Self [...] Recorded Patient Health Questionnaire-2 Score 0 07/06/2024 [facility] [place] of Occupat ional Health - Occupational Stress [...] place to sleep or slept in a correction (including now)? No 10/02/2022 Sex and Gender [...] 2 times daily 08/28/2022 calcium 500 mg tabletIndications:[place] stasis to bone (HCC) Take 1 (one) [...] naloxone HCl (Narcan) 4 MG/0.1ML nasal spray [place] 1 (one) spray into the nose as [...] vitamin D3 (Cholecalciferol) 10 MCG (400 UNIT) tabletIndications:[place] stasis to bone (HCC) Take 1 (one) tablet by mouth once daily 30 tablet 06/15/2024 documented as of this encounter Plan of Treatment Upcoming Encounters Date Type Department Care Team (Late st Contact Info) Description 07/25/2024 10:00 AM AUTO BATTERY BUILDER Office Visit [facility] - Endocrinology [address] [place] [phone] Yosi Bustamante MD [address] [place] [address] [place] [address] 07/26/2024 10:00 AM AUTO BATTERY BUILDER Appointment [facility] [address] [place] [phone] Neri Delgado MD [address] [place] [address] 07/26/2024 10:00 AM AUTO BATTERY BUILDER Office Visit [facility] - ENT [address] [place] [phone] Myra Farmer, MED PEDS [address] [place] [address] [place] [phone] 07/26/2024 11:15 AM AUTO BATTERY BUILDER Office Visit [facility] [address] [place] [phone] Neri Delgado MD [address] [place] [address] 08/02/2024 2:20 PM AUTO BATTERY BUILDER Appointment [facility] [address] [place] [address] 08/02/2024 3:00 PM AUTO BATTERY BUILDER Office Visit [facility] - Hematology/Oncology [address] [place] [phone] Remi Beckett MD [address] [place] [phone] 08/18/2024 1:45 PM AUTO BATTERY BUILDER Office Visit [facility] [address] [place] [phone] Neri Delgado MD [address] [place] [address] documented as of this encounter Procedures Procedure Name Priority Date/Time Associated Diagnosis Comments NM BONE SCAN WHOLE BODY Routine 07/07/2024 1:44 PM AUTO BATTERY BUILDER Cancer, metastatic to bone (HCC) documented in this encounter Results * NM Bone Scan Whole Body (07/07/2024 1:44 PM AUTO BATTERY BUILDER) Anatomical Region Laterality Modality Abdomen Nuclear Medicine 07/07/2024 10:5 1 AM AUTO BATTERY BUILDER Impressions 07/07/2024 3:49 PM AUTO BATTERY BUILDER IMPRESSION: 1. Intense radiotracer uptake within left pelvis, consistent with severe osteoarthritis seen in the prior PET/CT from 02/25/2024. 2. Moderate radiotracer uptake within lower neck anteriorly which may relate to post treatment changes, follow-up is recommended. > Dictated by Daphne Reis MD (Senior Attorney) 07/07/2024 10:51 AM Tiesha Mckeon DO have personally reviewed and interpreted this examination/study. > Interpreting Provider: Tiesha Sy DO on 07/07/2024 3:49 PM Narrative 07/07/2024 3:49 PM AUTO BATTERY BUILDER PROCEDURE: ??NM BONE SCAN WHOLE BODY DATE/TIME OF EXAM: ??07/07/2024 10:45 AM CLINICAL INFORMATION: None relevant/not provided if blank. Indication: C79.51: Cancer, metastatic to bone (HCC) HISTORY: A 63-year-old female with metastatic papillary thyroid carcinoma diagnosed in 2020 status post total thyroidectomy, cervical and thoracic spine metastasis status post radiotherapy. Currently on immunotherapy. TECHNIQUE: The patient was injected with 24.9 mCi of -a MDP IV in the right antecubital fossa. [...] hip joint. There are multiple sites of rtno-qg-mweptwws increased uptake in the bilateral shoulders and [...] patient was injected with 24.9 mCi of vyvdzgsvul80-b MDPIV in the right antecubital fossa. Anterior [...] hip joint. There are multiple sites of zilc-mm-wtxncwgn increased uptake in the bilateral shoulders and spine consistent with degenerative disease. IMPRESSION: 1. Intense radiotracer uptake within left pelvis, consistent with severe osteoarthritis seen in the prior PET/CT from 02/25/2024. 2. Moderate radiotracer uptake within lower neck anteriorly which may relate to post treatment changes, follow-up is recommended. > Dictated by Daphne Reis MD (Senior Attorney) 07/07/2024 10:51AM ITiesha DO have personally reviewed and interpreted this examination/study. > Interpreting Provider: Tiesha Sy DO on 07/07/2024 3:49 PM Remi Beckett MD NM ORDERABLES documented in this encounter Visit Diagnoses Diagnosis Cancer, metastatic to bone (HCC) Secondary malignant neoplasm of bone and bone marrow documented in this encounter Administered Medications Inactive Administered Medications - up to 3 most recent administrations Medication Order MAR Action Action Date Dose Rate Site Technetium Tc 99m Medronate (Mdp) injection KIT 24.9 millicurie 24.9 millicurie, Intravenous, ONCE, 1 dose, On Wed07/07/24 at 1130 $ Given 07/07/2024 11:07 AM AUTO BATTERY BUILDER 24.9 millicuries documented in this encounter Care Teams Napper Tender Relationship Specialty Start Date End Date Yaya Villatoro MD [address] [facility] [address] [place] [phone] PCP - General Internal Medicine 05/04/23 oJseph Manzanares MD [address] [place] [phone] Internal Medicine 04/21/23 documented as of this encounter
--- OUTSIDE RECORDS SUMMARY | 2024-07-23 07:06 | XMS_ITS | Encounter Summary ---
Author Organization [facility] Health Address [address] [place] [address] Care Team Providers Care Portable Power Tool Repairer Name Role Phone Joseph Manzanares MD Unavailable Yaya Villatoro MD Primary Care Provider +1- [phone] Encounter Details Date Type Department Care Team (Late st Contact Info) Description 07/06/2024 2:00 PM DIGITAL MEDIA INTERN Hospital Encounter [facility] - Radiation Oncology [address] [place] [address] Marcio Mcintosh MD [address] [place], [place] [phone] Social History Tobacco Use Types Packs/Day Years [...] Recorded Patient Health Questionnaire-2 Score 0 07/06/2024 [facility] of Occupat ional Health - [...] place to sleep or slept in a assisted (including now)? No 10/02/2022 Sex and Gender [...] st Contact Info) Description 07/25/2024 10:00 AM DIGITAL MEDIA INTERN Office Visit [facility] - Endocrinology [address] [place] [phone] Yosi Bustamante MD [address] [place] [address] 2L [place] [address] 07/26/2024 10:00 AM DIGITAL MEDIA INTERN Appointment [facility] [address] [place] [address] Neri Delgado MD [address] [place] [address] 07/26/2024 10:00 AM DIGITAL MEDIA INTERN Office Visit [facility] - ENT [address] [place] [phone] Myra Farmer, MERCURY RECOVERER [address] [place] [address] 2L [place] [address] 07/26/2024 11:15 AM DIGITAL MEDIA INTERN Office Visit [facility] [address] [place] [phone] Neri Delgado MD [address] [place] [address] 08/02/2024 2:20 PM DIGITAL MEDIA INTERN Appointment [facility] [address] [place] [address] 08/02/2024 3:00 PM DIGITAL MEDIA INTERN Office Visit [facility] - Hematology/Oncology [address] [place] [phone] Remi Beckett MD [address] [place] [address] 08/18/2024 1:45 PM DIGITAL MEDIA INTERN Office Visit [facility] - ENT [address] [place] [phone] Neri Delgado MD [address] [place] [address] documented as of this encounter Visit Diagnoses Not on filedocumented in this encounter Care Teams Portable Power Tool Repairer Relationship Specialty Start Date End Date Yaya Villatoro MD [address] [phone] PCP - General Internal Medicine 05/04/23 Joseph Manzanares MD [address] [place] [phone] Internal Medicine 04/21/23 documented as of this encounter
--- OUTSIDE RECORDS SUMMARY | 2024-07-23 07:06 | XMS_ITS | Encounter Summary ---
Author Organization [facility] Health Address [address] [place] [address] Care Team Providers Care Director Of Medical Review Name Role Phone Joseph Manzanares MD Unavailable Yaya Villatoro MD Primary Care Provider +1- [phone] Encounter Details Date Type Department Care Team (Latest Contact Info) Description 06/19/2024 Travel Social History Tobacco Use Types Packs/Day [...] Date Recorded PHQ2 TOTAL SCORE 1 11/25/2022 [facility] of Occupat ional Health - Occupational Stress [...] place to sleep or slept in a fdc (including now)? No 10/02/2022 Sex and Gender [...] st Contact Info) Description 07/25/2024 10:00 AM CURVE CLEANER Office Visit [facility] - Endocrinology [address] [place] [phone] Yosi Bustamante MD [address] [place] [address] 2L Div [place] [address] 07/26/2024 10:00 AM CURVE CLEANER Appointment [facility] [address] [place] [address] Neri Delgado MD [address] [place] [address] 07/26/2024 10:00 AM CURVE CLEANER Office Visit [facility] - ENT [address] [place] [phone] Myra Farmer, SUSTAINABLE SYSTEMS ANALYST [address] [place] [address] 2L [place] [phone] 07/26/2024 11:15 AM CURVE CLEANER Office Visit [facility] [address] [place] [phone] Neri Delgado MD [address] [place] [address] 08/02/2024 2:20 PM CURVE CLEANER Appointment [facility] [address] [place] [address] 08/02/2024 3:00 PM CURVE CLEANER Office Visit [facility] - Hematology/Oncology [address] [place] [phone] Remi Beckett MD [address] [place] [phone] 08/18/2024 1:45 PM CURVE CLEANER Office Visit [facility] - [facility] [address] [place] [address] Neri Delgado MD [address] [place] [address] documented as of this encounter Visit Diagnoses Not on filedocumented in this encounter Care Teams Director Of Medical Review Relationship Specialty Start Date End Date Yaya Villatoro MD [address] [phone] PCP - General Internal Medicine 05/04/23 Joseph Manzanares MD [address] [place] [phone] Internal Medicine 04/21/23 documented as of this encounter
--- OUTSIDE RECORDS SUMMARY | 2024-07-23 07:06 | XMS_ITS | Encounter Summary ---
Author Organization [facility] Health Address [address] [place] [address] Care Team Providers Care Marketing And Development Coordinator Name Role Phone Joseph Manzanares MD Unavailable Yaya Villatoro MD Primary Care Provider +1- [phone] Encounter Details Date Type Department Care Team (Latest Contact Info) Description 07/07/2024 Travel Social History Tobacco Use Types Packs/Day [...] Recorded Patient Health Questionnaire-2 Score 0 07/06/2024 [facility] of Occupat ional Health - Occupational [...] st Contact Info) Description 07/25/2024 10:00 AM SERVICE LIAISON REPRESENTATIVE Office Visit [facility] - Endocrinology [address] [place] [phone] Yosi Bustamante MD [address] [place] [address] 2L [place] [address] 07/26/2024 10:00 AM SERVICE LIAISON REPRESENTATIVE Appointment [facility] [address] [place] [address] Neri Delgado MD [address] [place] [address] 07/26/2024 10:00 AM SERVICE LIAISON REPRESENTATIVE Office Visit [facility] - ENT [address] [place] [phone] Myra Farmer, EXTRUSION DIE COORDINATOR [address] [place] [address] 2L [place] [phone] 07/26/2024 11:15 AM SERVICE LIAISON REPRESENTATIVE Office Visit [facility] ENT [address] [place] [phone] Neri Delgado MD [address] [place] [address] 08/02/2024 2:20 PM SERVICE LIAISON REPRESENTATIVE Appointment [facility] [address] [place] [address] 08/02/2024 3:00 PM SERVICE LIAISON REPRESENTATIVE Office Visit [facility] - Hematology/Oncology [address] [place] [phone] Remi Beckett MD [address] [place] [phone] 08/18/2024 1:45 PM SERVICE LIAISON REPRESENTATIVE Office Visit [facility] [address] [place] [address] Neri Delgado MD [address] [place] [address] documented as of this encounter Visit Diagnoses Not on filedocumented in this encounter Care Teams Marketing And Development Coordinator Relationship Specialty Start Date End Date Yaya Villatoro MD [address] [phone] PCP - General Internal Medicine 05/04/23 Joseph Manzanares MD [address] [place] [phone] Internal Medicine 04/21/23 documented as of this encounter
--- OUTSIDE RECORDS SUMMARY | 2024-07-23 07:06 | XMS_ITS | Encounter Summary ---
Author Organization [facility] Health Address [address] [facility] [place] [address] Care Team Providers Care Boilermaker Ship Name Role Phone Joseph Manzanares MD Unavailable Yaya Villatoro MD Primary Care Provider +1- [phone] Reason for Visit * Radiology Services (Routine) - Closed Specialty Diagnoses / Procedures Referred By Contac t Referred To Contact Hematology-Oncology Diagnoses Cancer, metastatic to bone (HCC) Procedures NM Bone Scan Whole Body Remi Beckett MD [address] [place] [address] Referral ID Status Reason Start Date Expiration Date Visits Re quested Visits Authorized [id number] Closed 05/29/2024 05/29/2025 1 1 Encounter Details Date Type Department Care Team (Latest Contact Info) Description 07/07/2024 1:04 PM OPERATOR COMMAND SUPPORT SYSTEMS - 07/07/2024 11:59 PM [facility] Hospital Encounter [facility] [address] [place] [phone] Remi Beckett MD [address] [place] [address] Discharge Disposition: Home or Self [...] Recorded Patient Health Questionnaire-2 Score 0 07/06/2024 [facility] [place] of Occupat ional Health - Occupational Stress [...] place to sleep or slept in a group home (including now)? No 10/02/2022 Sex and [...] 2 times daily 08/28/2022 calcium 500 mg tabletIndications:[place] stasis to bone (HCC) Take 1 (one) [...] naloxone HCl (Narcan) 4 MG/0.1ML nasal spray [place] 1 (one) spray into the nose as [...] vitamin D3 (Cholecalciferol) 10 MCG (400 UNIT) tabletIndications:[place] stasis to bone (HCC) Take 1 (one) tablet by mouth once daily 30 tablet 06/15/2024 documented as of this encounter Plan of Treatment Upcoming Encounters Date Type Department Care Team (Late st Contact Info) Description 07/25/2024 10:00 AM OPERATOR COMMAND SUPPORT SYSTEMS [facility] [address] [place] [phone] Yosi Bustamante MD [address] [place] [address] 2L [place] [address] 07/26/2024 10:00 AM OPERATOR COMMAND SUPPORT SYSTEMS Appointment [facility] [address] [place] [address] Neri Delgado MD [address] [place] [address] 07/26/2024 10:00 AM OPERATOR COMMAND SUPPORT SYSTEMS Office Visit [facility] - ENT [address] [place] [phone] Myra Farmer, EXAMINING CHAIR ASSEMBLER [address] [place] [address] 2L [place] [phone] 07/26/2024 11:15 AM OPERATOR COMMAND SUPPORT SYSTEMS Office Visit [facility] [address] [place] [phone] Neri Delgado MD [address] [place] [address] 08/02/2024 2:20 PM OPERATOR COMMAND SUPPORT SYSTEMS Appointment [facility] [address] [place] [address] 08/02/2024 3:00 PM OPERATOR COMMAND SUPPORT SYSTEMS Office Visit [facility] - Hematology/Oncology [address] [place] [phone] Remi Beckett MD [address] [place] [phone] 08/18/2024 1:45 PM OPERATOR COMMAND SUPPORT SYSTEMS Office Visit [facility] - ENT [address] [place] [phone] Neri Delgado MD [address] [place] [address] documented as of this encounter Procedures Procedure Name Priority Date/Time Associated Diagnosis Comments NM BONE SCAN WHOLE BODY Routine 07/07/2024 1:44 PM OPERATOR COMMAND SUPPORT SYSTEMS Cancer, metastatic to bone (HCC) documented in this encounter Results * NM Bone Scan Whole Body (07/07/2024 1:44 PM OPERATOR COMMAND SUPPORT SYSTEMS) Anatomical Region Laterality Modality Abdomen Nuclear Medicine 07/07/2024 10:5 1 AM OPERATOR COMMAND SUPPORT SYSTEMS Impressions 07/07/2024 3:49 PM OPERATOR COMMAND SUPPORT SYSTEMS IMPRESSION: 1. Intense radiotracer uptake within left pelvis, consistent with severe osteoarthritis seen in the prior PET/CT from 02/25/2024. 2. Moderate radiotracer uptake within lower neck anteriorly which may relate to post treatment changes, follow-up is recommended. > Dictated by Daphne Reis MD (Travel Coordinator) 07/07/2024 10:51 AM ITiesha DO have personally reviewed and interpreted this examination/study. > Interpreting Provider: Tiesha Sy DO on 07/07/2024 3:49 PM Narrative 07/07/2024 3:49 PM OPERATOR COMMAND SUPPORT SYSTEMS PROCEDURE: ??NM BONE SCAN WHOLE BODY DATE/TIME OF EXAM: ??07/07/2024 10:45 AM CLINICAL INFORMATION: None relevant/not provided if blank. Indication: C79.51: Cancer, metastatic to bone (HCC) HISTORY: A 63-year-old female with metastatic papillary thyroid carcinoma diagnosed in 2020 status post total thyroidectomy, cervical and thoracic spine metastasis status post radiotherapy. Currently on immunotherapy. TECHNIQUE: The patient was injected with 24.9 mCi of uhdwpbpwbz97-l MDP IV in the right antecubital fossa. [...] hip joint. There are multiple sites of lkgp-zh-znqjhkkk increased uptake in the bilateral shoulders and [...] patient was injected with 24.9 mCi of hgifaoqvhh06-m MDPIV in the right antecubital fossa. Anterior [...] hip joint. There are multiple sites of djfi-mk-kslrcoct increased uptake in the bilateral shoulders and spine consistent with degenerative disease. IMPRESSION: 1. Intense radiotracer uptake within left pelvis, consistent with severe osteoarthritis seen in the prior PET/CT from 02/25/2024. 2. Moderate radiotracer uptake within lower neck anteriorly which may relate to post treatment changes, follow-up is recommended. > Dictated by Daphne Reis MD (Travel Coordinator) 07/07/2024 10:51AM Tiesha Mckeon DO have personally reviewed and interpreted this examination/study. > Interpreting Provider: Tiesha Sy DO on 07/07/2024 3:49 PM Remi Beckett MD NM ORDERABLES documented in this encounter Visit Diagnoses Not on filedocumented in this encounter Care Teams Boilermaker Ship Relationship Specialty Start Date End Date Yaya Villatoro MD [address] [phone] PCP - General Internal Medicine 05/04/23 Joseph Manzanares MD [address] [place] [phone] Internal Medicine 04/21/23 documented as of this encounter
--- OUTSIDE RECORDS SUMMARY | 2024-07-23 07:06 | XMS_ITS | Encounter Summary ---
Author Organization [facility] Health Address [address] [facility] [place] [address] Care Team Providers Care Compliance Director Name Role Phone Joseph Manzanares MD Unavailable Yaya Villatoro MD Primary Care Provider +1- [phone] Encounter Details Date Type Department Care Team (Late st Contact Info) Description 05/24/2024 Orders Only [facility] - Hematology/Oncology [address] [place] [phone] Darryl العراقي, JOSY Social History Tobacco Use Types Packs/Day Years [...] Recorded PHQ2 TOTAL SCORE 1 11/25/2022 [facility] of Occupat ional [facility] - Occupational Stress Questionnaire Answer Date Recorded [...] st Contact Info) Description 07/25/2024 10:00 AM CUT PRESS OPERATOR Office Visit [facility] - Endocrinology [address] [place] [phone] Yosi Bustamante MD [address] [place] [address] 2L [place] [address] 07/26/2024 10:00 AM CUT PRESS OPERATOR Appointment [facility] [address] [place] [address] Neri Delgado MD [address] [place] [address] 07/26/2024 10:00 AM CUT PRESS OPERATOR [facility] [address] [place] [phone] Myra Farmer, PRODUCTION LEAD [address] [place] [address] 2L [place] [address] 07/26/2024 11:15 AM CUT PRESS OPERATOR Office Visit [facility] - ENT [address] [place] [phone] Neri Delgado MD [address] [place] [address] 08/02/2024 2:20 PM CUT PRESS OPERATOR Appointment [facility] [address] [place] [address] 08/02/2024 3:00 PM CUT PRESS OPERATOR Office Visit [facility] - Hematology/Oncology [address] [place] [phone] Remi Beckett MD [address] [place] [phone] 08/18/2024 1:45 PM CUT PRESS OPERATOR Office Visit [facility] - ENT [address] [place] [phone] Neri Delgado MD [address] [place] [address] documented as of this encounter Visit Diagnoses Not on filedocumented in this encounter Care Teams Compliance Director Relationship Specialty Start Date End Date Yaya Villatoro MD [facility] [address] [phone] PCP - General Internal Medicine 05/04/23 Joseph Manzanares MD [address] [place] [phone] Internal Medicine 04/21/23 documented as of this encounter
--- OUTSIDE RECORDS SUMMARY | 2024-07-23 07:06 | XMS_ITS | Encounter Summary ---
Author Organization [facility] Health Address [address] [facility] [place] [address] Care Team Providers Care Movement Assembler Name Role Phone Joseph Manzanares MD Unavailable Yaya Villatoro MD Primary Care Provider [phone]- [phone] Reason for Visit * Radiology Services (Routine) - Closed Specialty Diagnoses / Procedures Referred By Yuan robins Referred To Contact Hematology-Oncology Diagnoses Papillary carcinoma of thyroid (HCC) Procedures CT Neck Soft Tissue W Cont Remi Beckett MD [address] [place] [address] Referral ID Status Reason Start Date Expiration Date Visits Re quested Visits Authorized [id number] Closed 05/31/2024 05/31/2025 1 1 Encounter Details Date Type Department Care Team (Latest Contact Info) Description 07/07/2024 11:23 AM EQUAL OPPORTUNITY SPECIALIST - 07/07/2024 1:03 PM [facility] Hospital Encounter [facility] CAT SCAN [address] [place] [phone] Remi Beckett MD [address] [place] [address] Discharge Disposition: Home or Self [...] Recorded Patient Health Questionnaire-2 Score 0 07/06/2024 [facility] of Occupat ional Health - Occupational Stress [...] place to sleep or slept in a alf (including now)? No 10/02/2022 Sex and Gender [...] 2 times daily 08/28/2022 calcium 500 mg tabletIndications:[place] stasis to bone (HCC) Take 1 (one) [...] naloxone HCl (Narcan) 4 MG/0.1ML nasal spray [place] 1 (one) spray into the nose as [...] vitamin D3 (Cholecalciferol) 10 MCG (400 UNIT) tabletIndications:[place] stasis to bone (HCC) Take 1 (one) tablet by mouth once daily 30 tablet 06/15/2024 documented as of this encounter Plan of Treatment Upcoming Encounters Date Type Department Care Team (Late st Contact Info) Description 07/25/2024 10:00 AM EQUAL OPPORTUNITY SPECIALIST [facility] [address] [place] [phone] Yosi Bustamante MD [address] [place] [address] 2L [place] [address] 07/26/2024 10:00 AM EQUAL OPPORTUNITY SPECIALIST Appointment [facility] [address] [place] [address] Neri Delgado MD [address] [place] [address] 07/26/2024 10:00 AM EQUAL OPPORTUNITY SPECIALIST Office Visit [facility] - ENT [address] [place] [phone] Myra Farmer, CHILD LIFE ASSISTANT [address] [place] [address] 2L [place] [address] 07/26/2024 11:15 AM EQUAL OPPORTUNITY SPECIALIST Office Visit [facility] - ENT [address] [place] [phone] Neri Delgado MD [address] [place] [address] 08/02/2024 2:20 PM EQUAL OPPORTUNITY SPECIALIST Appointment [facility] [address] [place] [address] 08/02/2024 3:00 PM EQUAL OPPORTUNITY SPECIALIST Office Visit [facility] - Hematology/Oncology [address] [place] [phone] [place] [address] [place] [phone] 08/18/2024 1:45 PM EQUAL OPPORTUNITY SPECIALIST Office Visit [facility] - ENT [address] [place] [phone] Neri Delgado MD [address] [place] [address] documented as of this encounter Procedures Procedure Name Priority Date/Time Associated Diagnosis Comments CT NECK SOFT TISSUE W CONT Routine 07/07/2024 12:11 PM EQUAL OPPORTUNITY SPECIALIST Papillary carcinoma of thyroid (HCC) documented in this encounter Results * CT Neck Soft Tissue W Cont (07/07/2024 12:11 PM EQUAL OPPORTUNITY SPECIALIST) Anatomical Region Laterality Modality Head Computed Tomogra phy 07/09/2024 9:47 AM EQUAL OPPORTUNITY SPECIALIST Impressions 07/09/2024 10:08 AM EQUAL OPPORTUNITY SPECIALIST IMPRESSION: 1. A 9 x 7 x [...] 07/09/2024 10:08 AM Narrative 07/09/2024 10:08 AM EQUAL OPPORTUNITY SPECIALIST PROCEDURE: ??CT NECK SOFT TISSUE W CONT, DATE/TIME OF EXAM: ??07/07/2024 12:12 PM, LOCATION ??[facility] INDICATION: C73: Papillary carcinoma of thyroid [...] CONT, DATE/TIME OF EXAM: 2:12 PM, LOCATION [facility] INDICATION: C73: Papillary carcinoma of thyroid [...] 10:08 AM Remi Beckett MD CT ORDERABLES documented in this encounter Visit Diagnoses Diagnosis Papillary carcinoma of thyroid (HCC) Malignant neoplasm of thyroid gland documented in this encounter Administered Medications Inactive Administered Medications - up to 3 most recent administrations Medication Order MAR Action Action Date Dose Rate Site iopamidol (Isovue 370) 76 % contrast Intravenous, CONTRAST ONCE, Starting on 07/07/24 at 1123, Until 07/08/24 at 0131 $ Given - Contrast 07/07/2024 12:12 PM EQUAL OPPORTUNITY SPECIALIST 50 mL documented in this encounter Care Teams Movement Assembler Relationship Specialty Start Date End Date Yaya Villatoro MD [address] [facility] [address] [place] [phone] PCP - General Internal Medicine 05/04/23 Joseph Manzanares MD [address] [place] [phone] Internal Medicine 04/21/23 documented as of this encounter
--- OUTSIDE RECORDS SUMMARY | 2024-07-23 07:06 | XMS_ITS ---
Author Organization [facility] Address [address] [place] [address] Care Team Providers Care Engineering Librarian Name Role Phone Joseph Manzanares MD Unavailable Yaya Villatoro MD Primary Care Provider +1- [phone] Active Problems Problem Noted Date Diagnosed Date [...] seen Assessment & Plan (08/09/2020 10:15 AM INTERNET SALES MANAGER): Inner/outer ear inflammation, cellulitis vs other, [...] clobetasol ointment BID PRN to affected areas Current Oncology Plans SUPPORT (DENOSUMAB) Q28 DAYS (XGEVA)* Plan Start Date:04/27/2024 Plan Provider:Remi Beckett MD Linked Problems Metastasis to bone (HCC) Treatment Medications Current Day (Day 1 , Cycle 1 - Planned for 06/16/2024) Next Day (Day 1, Cycle 2 - Planned for 07/14/2024) No medications scheduled. No medications schedul ed. No medications scheduled. THYROID *ORAL* (LENVATINIB)* Plan Start Date:12/14/2023 Plan Provider:Remi Beckett MD Linked Problems Papillary carcinoma of thyro id (HCC) Treatment Medications Current Day (Day 1, Cycle 1 - Planned for 12/14/2023) lenvatinib (Lenvima) lenvatinib (Lenvima) 2 x 10 MG & 4 MG capsule Past Plans ONCOLOGY ADJUNCTIVE CARE Plan Name Start Date Discontinue Date Treatment Medications Discontinue Reason Plan Provider Cycles SUPPORT (ZOLEDRONIC ACID) Q28 DAYS (ZOMETA) 11/08/2023 11/04/2023 No medications scheduled. Not Started Remi Beckett MD Treatment not started ONCOLOGY TREATMENT Plan Name Start Date Discontinue Date Treatment Medications Discontinue Reason Plan Provider Cycles THYROID *ORAL* (LENVATINIB ) 10/21/2023 12/14/2023 lenvatinib (Lenvima) Physician Preference Remi Beckett MD 1 of 1 cycle started Radiation Treatments * Plan Last Treated On Elapsed Days Fractions Treated Prescribed Fraction Dose Prescribed Total Dose #CSpineRetx 10/22/2023 ? 5 of 5 ? 3,000 cGy #CSpine 09/21/2022 ? 2 of 2 ? 2,400 cGy Reference Point Last Treated On Elapsed Days Session Dose Total Dose GTV1 10/22/2023 ? 600 cGy 3,000 cGy PTV1 09/21/2022 ? 1,200 cGy 2,400 cGy Lifetime Dose Tracking * Chemical Lifetime Dose Automatic Entry Manual Entr y Dose Length Product 2,394.5 mGy-cm 2,394.5 mGy-cm 0 mG y-cm
--- OUTSIDE RECORDS SUMMARY | 2024-07-23 07:06 | XMS_ITS | Encounter Summary ---
Author Organization [facility] Health Address [address] [place] [address] Care Team Providers Care Turbine Technician Name Role Phone Joseph Manzanares MD Unavailable Yaya Villatoro MD Primary Care Provider [phone]- [phone] Encounter Details Date Type Department Care Team (Latest Contact Info) Description 07/06/2024 Travel Social History Tobacco Use Types Packs/Day [...] Recorded Patient Health Questionnaire-2 Score 0 07/06/2024 [facility] of Occupat ional Health - Occupational [...] place to sleep or slept in a longterm (including now)? No 10/02/2022 Sex and Gender [...] st Contact Info) Description 07/25/2024 10:00 AM ARMATURE WINDER AUTOMOTIVE Office Visit [facility] - Endocrinology [address] [place] [phone] Yosi Bustamante MD [address] [place] [address] 2L [place] [address] 07/26/2024 10:00 AM ARMATURE WINDER AUTOMOTIVE Appointment [facility] RAD [address] [place] [address] Neri Delgado MD [address] [place] [address] 07/26/2024 10:00 AM ARMATURE WINDER AUTOMOTIVE Office Visit [facility] - ENT [address] [place] [phone] Myra Farmer, FOREST PATHOLOGY TEACHER [address] [place] [address] 2[address] [place] [phone] 07/26/2024 11:15 AM ARMATURE WINDER AUTOMOTIVE Office Visit [facility] - ENT [address] [place] [phone] Neri Delgado MD [address] [place] [address] 08/02/2024 2:20 PM ARMATURE WINDER AUTOMOTIVE Appointment [facility] [address] [place] [address] 08/02/2024 3:00 PM ARMATURE WINDER AUTOMOTIVE Office Visit [facility] - Hematology/Oncology [address] [place] [phone] Remi Beckett MD [address] [place] [phone] 08/18/2024 1:45 PM ARMATURE WINDER AUTOMOTIVE Office Visit [facility] - ENT [address] [place] [address] Neri Delgado MD [address] [place] [address] documented as of this encounter Visit Diagnoses Not on filedocumented in this encounter Care Teams Turbine Technician Relationship Specialty Start Date End Date Yaya Villatoro MD [address] [phone] PCP - General Internal Medicine 05/04/23 Joseph Manzanares MD [address] [place] [phone] Internal Medicine 04/21/23 documented as of this encounter
--- OUTSIDE RECORDS SUMMARY | 2024-07-23 07:07 | XMS_ITS | Encounter Summary ---
Author Organization [facility] Health Address [address] [place] [address] Care Team Providers Care Alumina Refinery Operator Name Role Phone Joseph Manzanares MD Unavailable Yaya Villatoro MD Primary Care Provider +1- [phone] Encounter Details Date Type Department Care Team (Latest Contact Info) Description 03/07/2024 Travel Social History Tobacco Use Types Packs/Day [...] Date Recorded PHQ2 TOTAL SCORE 1 11/25/2022 [facility] of Occupat ional Health - Occupational [...] Contact Info) Description 07/25/2024 10:00 AM DIGITAL MARKETING STRATEGIST [facility] - Endocrinology [address] [place] [phone] Yosi Bustamante MD [address] [place] [address] 2L [place] [address] 07/26/2024 10:00 AM DIGITAL MARKETING STRATEGIST Appointment [facility] [address] [place] [phone] Neri Delgado MD [address] [place] [address] 07/26/2024 10:00 AM DIGITAL MARKETING STRATEGIST Office Visit [facility] - ENT [address] [place] [phone] Myra Farmer, ASSEMBLER BONDING [address] [place] [address] 2L [place] [phone] 07/26/2024 11:15 AM DIGITAL MARKETING STRATEGIST Office Visit [facility] - ENT [address] [place] [phone] Neri Delgado MD [address] [place] [address] 08/02/2024 2:20 PM DIGITAL MARKETING STRATEGIST Appointment [facility] [address] [place] [address] 08/02/2024 3:00 PM DIGITAL MARKETING STRATEGIST Office Visit [facility] - Hematology/Oncology [address] [place] [phone] Remi Beckett MD [address] [place] [phone] 08/18/2024 1:45 PM DIGITAL MARKETING STRATEGIST Office Visit [facility] - ENT [address] [place] [address] Neri Delgado MD [address] [place] [address] documented as of this encounter Visit Diagnoses Not on filedocumented in this encounter Care Teams Alumina Refinery Operator Relationship Specialty Start Date End Date Yaya Villatoro MD [address] [phone] PCP - General Internal Medicine 05/04/23 Joseph Manzanares MD [address] [place] [phone] Internal Medicine 04/21/23 documented as of this encounter
--- OUTSIDE RECORDS SUMMARY | 2024-07-23 07:07 | XMS_ITS | Encounter Summary ---
Author Organization [facility] Health Address [address] [facility] [place] [address] Care Team Providers Care Banking Services Officer Name Role Phone Joseph Manzanares MD Unavailable Yaya Villatoro MD Primary Care Provider [phone] Encounter Details Date Type Department Care Team (Latest Contact Info) Description 01/14/2024 11:09 AM CDT - 01/14/2024 11:59 PM [facility] Hospital Encounter [facility] [address] [facility] ([facility] [address]nd [place] [address] Yaya Villatoro MD [address] [facility] [address] [place] [address] Discharge Disposition: Home or Self Care Social [...] Date Recorded PHQ2 TOTAL SCORE 1 11/25/2022 [facility] [place] [facility] Occupat ional Health - Occupational Stress [...] Sig Dispensed Refills Start Date End Date atorvastatin (Lipitor) 40 MG tabletIndications:Hyperl ipidemia, unspecified hyperlipidemia type TAKE 1 TABLET BY MOUTH EVERYDAY AT BEDTIME 90 tablet 1 04/21/2023 buPROPion SR 12hr (Wellbutrin-SR) 100 MG tablet Take 1 (one) tablet by mouth 2 times daily 08/28/2022 calcitriol (Rocaltrol) 0.5 MCG capsuleIndications:Hypoc alcemia Take 1 (one) capsule by mouth once daily Reasons: Low Amount of Calcium in the Blood 90 capsule 3 06/14/2023 celecoxib (CeleBREX) 200 MG capsuleIndications:Prima ry osteoarthritis of left hip Take 1 (one) capsule by mouth once daily 90 capsule 3 10/27/2022 cyclobenzaprine (Flexeril) 5 MG tablet Take 1 (one) tablet by mouth 3 times daily as needed 90 tablet 1 11/19/2022 famotidine (PEPCID) 20 MG tablet Take 1 (one) tablet by mouth 2 times daily as needed 05/27/2020 fluticasone propionate (Flonase) 50 MCG/ACT nasal sprayIndications:Allergi c rhinitis, unspecified seasonality, unspecified trigger SPRAY 2 SPRAYS INTO EACH NOSTRIL EVERY DAY 16 g 1 06/01/2023 gabapentin (Neurontin) 300 MG capsuleIndications:Prima ry osteoarthritis of left hip Take 1 (one) capsule by mouth 3 times daily 90 capsule 5 11/19/2022 hydrOXYzine HCl (Atarax) 25 MG tablet Take 1 (one) tablet to 2 (two) tablets by mouth as needed 07/15/2023 ibuprofen (Motrin) 200 MG tablet Take 4 (four) tablets by mouth 4 times daily levothyroxine (Synthroid) 112 MCG tabletIndications:Hypoth yroidism,Malignant Neoplasm of Thyroid Take 1 (one) tablet by mouth daily before breakfast Reasons: Cancer of Thyroid, Underactive Thyroid 100 tablet 3 10/25/2023 5 naloxone HCl (Narcan) 4 MG/0.1ML nasal spray Tyler 1 (one) spray into the nose as needed ondansetron (Zofran) 8 MG tabletIndications:Cancer Chemotherapy-Induced Nausea and Vomiting Take one tablet [...] 4 06/10/2022 pantoprazole EC (Protonix) 40 MG tabletIndications:Gastro esophageal reflux disease, unspecified whether esophagitis present TAKE ONE TABLET BY MOUTH ONCE DAILY FOR STOMACH 90 tablet 02/03/2023 PARoxetine (PAXIL) 40 MG tablet Take 1 (one) tablet by mouth once daily 2 11/14/2016 prochlorperazine (Compazine) 10 MG tabletIndications:Papill vidal carcinoma of thyroid (HCC) Take 1 (one) tablet by mouth every 6 hours as needed for Nausea/Vomiting 30 tablet 11 12/10/2023 traZODone (DESYREL) 50 MG tablet Take 1 (one) tablet by mouth at bedtime 06/25/2020 acetaminophen (Tylenol) 500 MG capsule Take 2 (two) capsules by mouth every 8 hours as needed for Fever or Pain 30 capsule 01/14/2024 4 albuterol HFA (Proventil; Ventolin; Proair) 108 (90 Base) MCG/ACT inhaler Inhale 2 (two) puffs by mouth every 6 hours as needed 08/02/2023 4 denosumab (Prolia) 60 MG/ML SC injectionIndications:Pos toperative hypothyroidism,Thyroid cancer (HCC),Hypocalcemia,Other hypoparathyroidism (HCC),Malignant tumor of thyroid gland (HCC),Cancer, metastatic to bone (HCC) Inject 1 mL subcutaneously Every 180 days 1 mL 2 10/25/2023 4 diphenhydrAMINE/maalox/l idocaine visc 1:1:1 (Magic Mouthwash) suspensionIndications:Mo uth Pain Swish and spit 10 mL 4 times daily Reasons: Mouth Pain 90 mL 3 01/14/2024 lenvatinib (Lenvima) 2 x 10 MG & 4 MG capsuleIndications:Papil rajinder carcinoma of thyroid (HCC) Take two 10 mg capsules and one 4 mg capsule (24 mg total) by mouth once a day. 90 Each 12/14/2023 4 documented as of this encounter Plan of Treatment Upcoming Encounters Date Type Department Care Team (Late st Contact Info) Description 07/25/2024 10:00 AM LICENSED PRACTICAL NURSE Office Visit [facility] - Endocrinology [address] [place] [phone] Yosi Bustamante MD [address] [place] [address] 2L [place] [address] 07/26/2024 10:00 AM LICENSED PRACTICAL NURSE Appointment [facility] [address] [place] [address] Neri Delgado MD [address] [place] [phone] 07/26/2024 10:00 AM LICENSED PRACTICAL NURSE Office Visit [facility] - ENT [address] [place] [phone] Myra Farmer, LICENSED PRACTICAL NURSE INSTRUCTOR [address] [place] [address] [address] [place] [address] 07/26/2024 11:15 AM LICENSED PRACTICAL NURSE Office Visit [facility] - ENT [address] [place] [phone] Neri Delgado MD [address] [place] [phone] 08/02/2024 2:20 PM LICENSED PRACTICAL NURSE Appointment [facility] [address] [place] [phone] 08/02/2024 3:00 PM LICENSED PRACTICAL NURSE Office Visit [facility] - Hematology/Oncology [address] [place] [phone] Remi Beckett MD [address] [place] [phone] 08/18/2024 1:45 PM LICENSED PRACTICAL NURSE Office Visit [facility] - ENT [address] [place] [phone] Neri Delgado MD [address] [place] [phone] documented as of this encounter Procedures Procedure Name Priority Date/Time Associated Diagnosis Comments CBC W AUTO DIFFERENTIAL STAT 01/14/2024 11:13 AM CDT Papillary carcinoma of thyroid (HCC) COMPREHENSIVE METABOLIC PANEL STAT 01/14/2024 11:13 AM CDT Papillary carcinoma of thyroid (HCC) documented in this encounter Results * (ABNORMAL) COMPREHENSIVE METABOLIC PANEL (01/14/2024 11:13 AM CDT) BUN 38(H) 7 - 26 mg/dL 01/14/2024 11:44 AM [facility] Creatinine 0.94 0.56 - 0.96 mg/dL 01/14/2024 11:44 AM [facility] Sodium 137 136 - 145 mmol/L 01/14/2024 11:44 AM [facility] Potassium 4.0 3.5 - 4.5 mmol/L 01/14/2024 11:44 AM [facility] Chloride 105 98 - 107 mmol/L 01/14/2024 11:44 AM [facility] CO2 21(L) 22 - 29 mmol/L 01/14/2024 11:44 AM [facility] Glucose 101 70 - 115 mg/dL 01/14/2024 11:44 AM [facility] Calcium 9.0 8.4 - 10.2 mg/dL 01/14/2024 11:44 AM [facility] Protein Total 7.6 6.0 - 8.3 g/dL 01/14/2024 11:44 AM [facility] Albumin 3.6 3.4 - 5.0 g/dL 01/14/2024 11:44 AM [facility] Bilirubin Total 0.3 0.2 - 1.2 mg/dL 01/14/2024 11:44 AM [facility] Alkaline Phosphatase 97 40 - 150 U/L 01/14/2024 11:44 AM [facility] ALT 20 5 - 55 U/L 01/14/2024 11:44 AM [facility] AST 20 5 - 34 U/L 01/14/2024 11:44 AM [facility] Anion Gap 11 6 - 16 01/14/2024 11:44 AM [facility] BUN/Creatinine Ratio 40(H) 7 - 23 01/14/2024 11:44 AM [facility] Osmolality Calculated 293 275 - 295 mOsm/kg 01/14/2024 11:44 AM [facility] Albumin/Globulin Ratio 0.9(L) 1.1 - 2.3 01/14/2024 11:44 AM [facility] eGFR by CKD-EPI 67(L) >=90 mL/min/1.7 3 m2 01/14/2024 11:44 AM [facility] Blood BLOOD SPECIMEN / Unknown Lab Venipuncture / Unknown 01/14/2024 11:13 AM CDT 01/14/2024 11:18 AM T Remi Beckett MD LAB - CHEMISTRY ORDERABLES [facility] [address] [place] [phone], [facility] [phone] * (ABNORMAL) CBC WITH DIFFERENTIAL (01/14/2024 11:13 AM CDT) WBC 8.6 4.0 - 10.7 x10E9/L 01/14/2024 11:30 AM [facility] RBC Count 5.49(H) 3.90 - 5.20 x10E12/L 01/14/2024 11:30 AM [facility] Hemoglobin 15.3 11.9 - 15.8 g/dL 01/14/2024 11:30 AM [facility] Hematocrit 44.4 34.8 - 46.1 % 01/14/2024 11:30 AM [facility] MCV 80.9 80.0 - 98.0 fL 01/14/2024 11:30 AM [facility] MCH 27.9 26.7 - 33.6 pg 01/14/2024 11:30 AM [facility] MCHC 34.5 31.7 - 36.3 g/dL 01/14/2024 11:30 AM [facility] RDW-CV 13.3 11.3 - 14.8 % 01/14/2024 11:30 AM [facility] Platelet Count 275 150 - 420 x10E9/L 01/14/2024 11:30 AM [facility] MPV 10.0 7.8 - 11.4 fL 01/14/2024 11:30 AM [facility] Neutrophil % 65.6 41.0 - 74.0 % 01/14/2024 11:30 AM [facility] Lymphocyte % 19.0 17.0 - 47.0 % 01/14/2024 11:30 AM [facility] Monocyte % 8.8 3.0 - 11.0 % 01/14/2024 11:30 AM [facility] Eosinophil % 5.8 0.0 - 7.0 % 01/14/2024 11:30 AM [facility] Basophil % 0.6 0.0 - 1.6 % 01/14/2024 11:30 AM [facility] Immature Granulocytes % 0.2 0.0 - 1.0 % 01/14/2024 11:30 AM [facility] Neutrophil Absolute 5.67 1.60 - 7.50 x10E9/L 01/14/2024 11:30 AM [facility] Lymphocyte Absolute 1.64 1.00 - 4.40 x10E9/L 01/14/2024 11:30 AM CDT [facility] Monocyte Absolute 0.76 0.15 - 1.00 x10E9/L 01/14/2024 11:30 AM CDT [facility] Eosinophil Absolute 0.50 0.00 - 0.60 x10E9/L 01/14/2024 11:30 AM CDT [facility] Basophil Absolute 0.05 0.00 - 0.13 x10E9/L 01/14/2024 11:30 AM CDT [facility] Blood BLOOD SPECIMEN / Unknown Lab Venipuncture / Unknown 01/14/2024 11:13 AM CDT 01/14/2024 11:18 AM CDT Remi Beckett MD LAB - HEMATOLOGY ORDERABLES Performing Organization Address City/State/[facility] Co de Phone Number [facility] [address] [place] [address] [phone] documented in this encounter Visit Diagnoses Diagnosis Papillary carcinoma of thyroid (HCC) Malignant neoplasm of thyroid gland documented in this encounter Care Teams Banking Services Officer Relationship Specialty Start Date End Date Yaya Villatoro MD [address] [phone] PCP - General Internal Medicine 05/04/23 Joseph Manzanares MD [address] [place] [phone] Internal Medicine 04/21/23 documented as of this encounter
--- OUTSIDE RECORDS SUMMARY | 2024-07-23 07:07 | XMS_ITS | Encounter Summary ---
Author Organization [facility] Address [address] [place] [address] Care Team Providers Care Outside Laborer Name Role Phone Joseph Manzanares MD Unavailable Yaya Villatoro MD Primary Care Provider [phone] Reason for Visit * Reason Comments Follow-up Follow up Encounter Details Date Type Department Care Team (Late st Contact Info) Description 03/07/2024 12:40 PM CDT Office Visit [facility] - Hematology/Oncology [address] [place] [address] Shannan Benavides APRN-BACKWINDER [address] [place] [address] Papillary carcinoma of thyroid (HCC) (Primary Dx) Social History Tobacco Use Types Packs/Day Years [...] Date Recorded PHQ2 TOTAL SCORE 1 11/25/2022 [facility] [facility] - Occupational Stress [...] Sign Reading Time Taken Comments Blood Pressure 137/76 03/07/2024 1:03 PM CDT Pulse 90 03/07/2024 1:03 PM CDT Temperature 37.2 ??C (98.9 ??F) 03/07/2024 1:03 PM CD T Respiratory Rate 20 03/07/2024 1:03 PM CDT Oxygen Saturation 97% 03/07/2024 1:03 PM CDT Inhaled Oxygen Concentration - - Weight 55.3 kg (121 lb 14.4 oz) 03/07/2024 1:03 PM CDT Height - - Body Mass Index 22.3 02/25/2024 2:20 PM CDT documented in this encounter Functional [...] this encounter Patient Instructions * Patient Instructions* Shannan Benavides APRN-BACKWINDER - 03/07/2024 1:38 PM CDT Thank you for entrusting your healthcare to the physicians and other specialists at the [facility]. Darryl FERRIS- [phone] Please call us if you do not hear from the pharmacy regarding your medications [facility] Hematology/Oncology Clinic: For symptom management or prescription questions during business hours (Mon-Fri 8AM-4:30PM), pleasecall the triage nurse. Outside of business hours, please call the hematology/oncology doctor on-call. Hem/Onc Doctor On-Call (After hours, weekends, holidays): , Dial 0 ([facility]) and ask for the hematology/oncology fellow on-call and they will contact you within 30 minutes. If you are having a medical emergency, please call 911 or go to the nearest Emergency Room. Please call for directions for any of these symptoms: Fever higher than 100.4??F (taken by mouth) Intense chills or shakes Uncontrolled nausea/vomiting or diarrhea Abnormal bleeding or unexplained bruising New rash or allergic reaction, such as swelling of the mouth or throat, severe itching, trouble swallowing, difficulty breathing Pain or soreness at the chemo injection site or catheter site New or unusual pain, including severe headaches New chest pain or difficulty breathing documented in this encounter Progress Notes * Shannan Benavides APRN-CNP - 03/13/2024 2:23 PM CDT Images from the original note were not included. HEMATOLOGY/ONCOLOGY CLINIC PROGRESS NOTE Name: Brisa Walters Age: [age] year old Date of : 1960 Date of Service: 03/07/2024 PCP: Yaya Villatoro MD Hem/Onc Care Team: Dr. Beckett (hem/onc), CODY Neil (Hem/Onc) HEMATOLOGY & ONCOLOGY HISTORY Principal Diagnosis: Thyroid cancer Current Therapy: levatinib 20 mg Prior Hematology/Oncology History: Copied/Reviewed from previous EMR-- TREATMENT HISTORY: - Total thyroidectomy requiring sacrifice [...] free T4 1.4. --10/2023: Discussed with her inpatient auditor Dr. Bustamante. She is not a good candidate for repeatRAI, which also does not have good bone/DEFENSE TRAVEL ADMINISTRATOR penetration. Hence decided to initiate lenvatinib 24 mgorally once daily. --11/05/2023: Brain MRI negative for metastasis. --11/23/2023: MRI cervical spine consistent with metastatic disease involvement of the C2, C4, C5, C6 and T1 vertebral bodies, not significantly changed compared to prior. --Early 01/2024: Started on lenvatinib 24 mg once daily, was stopped in the last visit 01/14/2024. - 02/07/2024: Resume Lenvatinib 20 mg every day (Reduce dose from 24 ng QD due to mucositis) SUBJECTIVE History of Present Illness Chief Complaint: Follow-up, 2 week follow up Interval History: Patient presents by herself at this visit for 2 week follow up. Since the last visit, she has been feeling overall well. She has been off of Lenvatinib for around 1 week now. She has been out of the medication. Since being off of it, her symptoms have completely resolved includingswallowing problems and pain. She feels back to baseline officailly. She is not sure if it is related to the medication or not. She is planning on resuming her medication once she receives it and trialing to see if her symptoms are related to the medication or not. Appetite is good. She is happy she is gainging weight. Denies any nausea, vomiting, or abominal pain. Bowels are regular. Ambulating well with walker. Denies any falls. Denies any recent infections, fevers, chills, night sweats, lightheadedness, bruising, or bleeding. Denies any swelling, chest pain, heart palpitations, shortness of breath, coughing, neuropathy, headaches, skin changes. Denies any other concerns at this time. Review of Systems: As noted in HPI. All other systems reviewed and negative. Past Medical & Surgical History Patient Active Problem List Diagnosis Cervical spine tumor Metastasis to bone (HCC) Gastroesophageal reflux disease Lumbar radiculopathy Secondary malignant neoplasm of bone (HCC) Papillary carcinoma of thyroid (HCC) Cancer, metastatic to bone (HCC) Need for influenza vaccination Left shoulder pain Urinary incontinence Chronic pain after cancer treatment Depression, unspecified Neoplasm of uncertain behavior of skin Other seborrheic keratosis Postoperative hypothyroidism Thyroid cancer (CMS/HCC) Hypocalcemia Other hypoparathyroidism (CMS/HCC) Cellulitis Woke up 5d prior to presentation w/ right ear pain and wound, 2 day prior had some purulent drainage from the site. Flushed with hydrogen peroxide. No fevers chills. No insects seen Complete paralysis of right vocal cord Hoarseness Tracheal mass Lymphadenopathy of head and neck region Other psoriasis High cholesterol Primary osteoarthritis of left hip Nicotine dependence Psychophysiologic insomnia Chronic fatigue Snoring Obsessive-compulsive disorder counting Overview: counting Headache Past Medical History: Diagnosis Date Anxiety and depression Degenerative disc disease, lumbar Disorder of thyroid mass on thyroid - right GERD (gastroesophageal reflux disease) High cholesterol HLD (hyperlipidemia) Hypocalcemia 10/14/2020 Osteoarthritis of one hip, left Other hypoparathyroidism 10/14/2020 Postoperative hypothyroidism 10/14/2020 Psoriasis Seasonal allergies Snoring SOB (shortness of breath) 08/06 thyroid mass Thyroid cancer (HCC) 10/14/2020 Tracheal [...] N/A; DIRECT LARYNGOSCOPY WITH BIOPSY Polypectomy cervical Past Oncology History Cancer Staging Papillary carcinoma of thyroid (HCC) [...] C/T spine, 3,000 cGy in 5 fractions. 01/2024 - Chemotherapy lenvatinib (Lenvima) 2 x 10 MG & 4 MG capsule, 0 of 1 cycle, Start date: --, End date: -- Active Treatment Days for Brisa Gonzalez (until 03/14/2024) There are no remaining days before 03/14/2024. Social History Social History Tobacco Use Smoking status: Some Days Packs/day: 0.25 Years: 40.00 Additional pack years: 0.00 Total pack years: 10.00 Types: Cigarettes Start date: 07/22/1973 Smokeless tobacco: Current Tobacco comments: 1-2 cigarettes per day current smoker Substance Use Topics Alcohol use: No Family History Family History Problem Relation Name Age of [...] Sister Status: Alive Thyroid Disease Neg Hx Medications Current Outpatient Medications Medication Sig acetaminophen (Tylenol) [...] Reasons: Low Amountof Calcium in the Blood celecoxib (CeleBREX) 200 MG capsule Take 1 (one) capsule by mouth once daily clobetasol (Temovate) 0.05 % ointment Apply to affected area 2 times daily as needed cyclobenzaprine (Flexeril) 5 MG tablet Take 1 (one) tablet by mouth 3 times daily as needed denosumab (Prolia) 60 MG/ML SC injection Inject 1 mL subcutaneously Every 180 days (Patient not taking: Reported on 02/25/2024) diphenhydrAMINE/maalox/lidocaine visc 1:1:1 (Magic Mouthwash) suspension Swish and swallow 10 mL every 6 hours as needed famotidine (PEPCID) 20 MG tablet Take 1 [...] by mouth 4 times daily lenvatinib (Lenvima) 2 x 10 MG & 4 MG capsule Take 20 mg by mouth once daily Take two 10 mg capsules (20 mg total) by mouth once a day. (Patient not taking: Reported on 03/07/2024) levothyroxine (Synthroid) 112 MCG tablet Take 1 (one) tablet by mouth daily before breakfast Reasons: Cancer of Thyroid, Underactive Thyroid naloxone HCl (Narcan) 4 MG/0.1ML nasal spray [place] 1 (one) spray into the nose as [...] 1 (one) tablet by mouth at bedtime No current facility-administered medications for this visit. Allergies Allergies Allergen Reactions Kiwi Extract Anaphylaxis OBJECTIVE Physical Exam Vitals: 03/07/24 1303 BP: 137/76 Pulse: 90 Resp: 20 Temp: 98.9 ??F (37.2 ??C) SpO2: 97% Weight: 55.3 kg (121 lb 14.4 oz) Wt Readings from Last 3 Encounters: 03/07/24 55.3 kg (121 lb 14.4 oz) 02/25/24 56.2 kg (124 lb) 02/07/24 57.9 kg (127 lb 9.6 oz) ECO General: No acute distress. Neck: Supple, trachea midline. Heart: Normal S1, S2. Regular rate and rhythm. Lungs: Symmetric breath sounds. Clear to auscultation. Nonlabored respirations. Abdomen: Soft, nontender, nondistended. Lymph: No palpable cervical or supraclavicular lymphadenopathy. Extremities: No clubbing or edema. Musculoskeletal: No spinal tenderness or visible deformity. Ambulates without assistance. Skin: Warm, dry. No rash. Neurologic: Alert, oriented. No gross focal neurologic deficits. Psychiatric: Cooperative. Appropriate mood and affect. Laboratory Results Recent Labs Component Name 03/07/24 1253 02/07/24 1506 01/14/24 1113 10/21/23 1450 10/07/22 0012 10/05/22223310/05/22 0436 WBC 8.9 8.7 8.6 - 8.1 8.9 9.3 RBC 5.21* 5.00 5.49* - 3.03* 3.18* 3.32* HGB 15.0 14.3 15.3 - 9.2* 9.7* 10.2* HCT 44.5 42.5 44.4 - 27.3* 29.2* 30.5* MCV 85.4 85.0 80.9 - 90.1 91.8 91.9 MCHC 33.7 33.6 34.5 - 33.7 33.2 33.4 PLTCOUNT 265 313 275 - 263 239 239 NEUTPCT 74.6* 69.0 65.6 - 59.0 67.4 68.2 LYMPHPCT 16.8* 20.4 19.0 - - - - NEUTABS - - - - 4.75 6.03 6.32 LYMPHABS 1.49 1.77 1.64 - - - - BASOABS 0.03 0.06 0.05 - - - - - = values in this interval not displayed. Recent Labs Component Name 03/07/24 1253 02/07/24 1506 01/14/24 1113 12/10/23 1054 10/25/23 1445 12/24/22 1059 10/07/22 0012 10/05/22223310/05/22 0436 POTASSIUM 4.0 4.2 4.0 4.3 3.8 - 3.8 3.7 3.7 CO2 24 23 21* 21* 27 - 25 25 25 BUN 28* 27* 38* 30* 10 - 15 19 10 CREATININE 0.78 0.68 0.94 0.77 0.81 - 0.56 0.53* 0.59 EGFR 84* >90 67* 86* 81* - >90 >90 >90 GLUCOSE 91 93 101 101 88 - 92 118* 90 CALCIUM 9.4 8.5 9.0 9.3 8.8 - 9.0 8.6 8.3* MAGNESIUM - - - - - - 1.7 1.6 1.7 PHOS 5.2* - - 4.8 4.7 - 5.3* 4.6 3.6 ALT 12 17 20 17 - - - - - AST 14 18 20 17 - - - - - ALKPHOS 85 94 97 83 - - - - - - = values in this interval not displayed. Pathology Results Personally reviewed and summarized above in Hematology & Oncology History Radiology Results Personally reviewed and summarized above in Hematology & Oncology History MRI CERVICAL SPINE WWO CONT Result Date: 02/29/2024 IMPRESSION: 1. Redemonstration of extensive postoperative changes of posterior spinal fusion and decompressive laminectomies. 2. Redemonstration of a grossly unchanged metastatic disease in the cervical spine at C2, C4, C5, C6 and T1 levels as detailed above. No definite new lesions. No spinal cordcompression. > Interpreting Provider: William Qiu MD on 02/29/2024 3:[address] WHOLE BODY Result Date: 02/25/2024 IMPRESSION: 1.Redemonstrated postsurgical changes of a [...] lung zone. > Dictated by Tex Andrew (Maintenance Repairman) 02/25/2024 10:45 AM Jared Mckeon DO have personally reviewed and interpreted this examination/study. > Interpreting Provider: Tiesha Sy DO on 02/25/2024 4:00 PM ASSESSMENT Brisa Walters is a 63 year old female with thyroid cancer who presents for 2 week follow up. 1. Papillary carcinoma of thyroid, stage III (pT4a pN1b cM0) - diagnosed 08/19/2020, with locally recurrent/residual disease identified [...] to 10/22/2023 - Lenvatinib, early 01/2024 to present, however she has not been taking it consistently due to AE's or being out of medication. She currently has been off of it for around 1 week due to being out of the medication. She currently feels well off of the medication and denies any AE's. Pain and mucositis has resolved. - Labs obtained and reviewed today, CBC and CMP raise no concerns. - Plan to resume Lenvatinib as prescribed to evaluate if symptoms are related to medication or haveresolved at this time. Medication refilled today. - Continue monitoring on Lenvatinib per Dr. Beckett's note: - LFTs at baseline, every 2 weeks [...] perforation, bleeding/hemorrhage, diarrhea, dehydration, wound healing complications. 2. Comorbidities: - Continue following with PCP and specialties. Hypertension, hyperlipidemia, GERD, psoriasis?, anxiety/depression, Left cuff rotator chronic injury (Due to this decrease strength of the arm), left hip OA. PLAN - Restart Lenvatinib - Continue to follow with PCP for management of chronic medical conditions, age- appropriate cancer screenings - RTC in 2 weeks for follow up with Dr. Beckett and labs All questions were answered to patient's satisfaction. Patient advised to contact the clinic with any further questions or concerns. A total of 30 minutes was spent on the date of service performing any of the following: preparing to see the patient, obtaining history and performing exam, independently interpreting tests and communicating results, counseling and educating the patient/family/caregiver, ordering medications and diagnostic studies, documenting in the health record, and care coordination. Tc Benavides MSN, LIQUID HYDROGEN PLANT OPERATOR-BC [facility] Hematology/Oncology documented in this encounter Plan of Treatment Upcoming Encounters Date Type Department Care Team (Late st Contact Info) Description 07/25/2024 10:00 AM REAL ESTATE PARALEGAL Office Visit [facility] - Endocrinology [address] [place] [phone] Yosi Bustamante MD [address] [place] [address] 2L Div [place] [address] 07/26/2024 10:00 AM REAL ESTATE [place]GAL Appointment [facility] [address] [place] [phone] Neri Delgado MD [address] [place] [phone] 07/26/2024 10:00 AM REAL ESTATE [place]GAL Office Visit [facility] - ENT [address] [place] [phone] Myra Farmer, NURSE SUPERVISOR [address] [place] [address] [address] [place] [address] 07/26/2024 11:15 AM REAL ESTATE [place]GAL Office Visit [facility] - ENT [address] [place] [phone] Neri Delgado MD [address] [place] [phone] 08/02/2024 2:20 PM REAL ESTATE [place]GAL Appointment [facility] [address] [place] [address] 08/02/2024 3:00 PM REAL ESTATE [place]GAL Office Visit [facility] - Hematology/Oncology [address] [place] [phone] [place] [address] [place] [phone] 08/18/2024 1:45 PM REAL ESTATE [place]GAL Office Visit [facility] - ENT [address] [place] [phone] Neri Delgado MD [address] [place] [phone] documented as of this encounter Visit Diagnoses Diagnosis Papillary carcinoma of thyroid (HCC)- Primary Malignant neoplasm of thyroid gland documented in this encounter Care Teams Outside Laborer Relationship Specialty Start Date End Date Yaya Villatoro MD [address] [place] [phone] PCP - General Internal Medicine 05/04/23 Joseph Manzanares MD [address] [place] [phone] Internal Medicine 04/21/23 documented as of this encounter
--- OUTSIDE RECORDS SUMMARY | 2024-07-23 07:07 | XMS_ITS | Encounter Summary ---
Author Organization [facility] Health Address [address] [facility] [address] Care Team Providers Care Key Maker Name Role Phone Joseph Manzanares MD Unavailable Yaya Villatoro MD Primary Care Provider [phone]- [phone] Reason for Visit * Auth/Cert (Routine) Specialty Diagnoses / Procedures Referred By Contricardo t Referred To Contact Referral ID Status Reason Start Date Expiration Date Visits Re quested Visits Authorized [id number] 1 1 Encounter Details Date Type Department Care Team (Latest Contact Info) Description 04/17/2024 3:04 PM CDT - 04/17/2024 11:59 PM CDT Hospital Encounter [facility] [address] [facility], 2nd [place] [address] Discharge Disposition: Home or Self Care Social [...] No 11/05/2022 OASIS B1300: Health Literacy Answer Loi e Recorded Frequency of needing help to [...] Date Recorded PHQ2 TOTAL SCORE 1 11/25/2022 [facility] of Occupat ional Health - Occupational [...] place to sleep or slept in a snf (including now)? No 10/02/2022 Sex and Gender [...] 6 Hours (03,09,15,21) atorvastatin (Lipitor) 40 MG tabletIndications:Hyperl ipidemia, unspecified [...] daily as needed 90 tablet 1 11/19/2022 diphenhydrAMINE/maalox/l idocaine visc 1:1:1 (Magic Mouthwash) suspensionIndications:Or opharyngeal dysphagia,Chronic pain after cancer treatment Swish and [...] Thyroid, Underactive Thyroid 100 tablet 3 10/25/2023 naloxone HCl (Narcan) 4 MG/0.1ML nasal spray [place] 1 (one) spray into the nose as [...] (one) tablet by mouth at bedtime 06/25/2020 denosumab (Prolia) 60 MG/ML SC injectionIndications:Thy roid cancer (HCC),Postoperative hypothyroidism,Malignant tumor of thyroid gland (HCC),Cancer, metastatic to bone (HCC),Hypocalcemia,Other hypoparathyroidism (HCC),Papillary carcinoma of thyroid (HCC) Inject 1 mL subcutaneously Every 180 days 1 mL 2 01/24/2024 lenvatinib (Lenvima) 10 & 4 MG capsuleIndications:Papil rajinder carcinoma of thyroid (HCC) Take one 10 mg capsule and one 4 mg capsule (14 mg total) once daily. 60 Each 2 04/17/2024 documented as of this encounter Plan of Treatment Upcoming Encounters Date Type Department Care Team (Late st Contact Info) Description 07/25/2024 10:00 AM LION HUNTER Office Visit [facility] - Endocrinology [address] [place] [phone] Yosi Bustamante MD [address] [place] [address] 2L [place] [address] 07/26/2024 10:00 AM LION HUNTER Appointment [facility] [address] [place] [address] Neri Delgado MD [address] [place] [address] 07/26/2024 10:00 AM LION HUNTER [facility] E[facility] [address] [place] [phone] Myra Farmer, CHUCKING AND BORING MACHINE OPERATOR [address] [place] [address] 2L [place] [phone] 07/26/2024 11:15 AM LION HUNTER Office Visit [facility] - ENT [address] [place] [phone] Neri Delgado MD [address] [place] [address] 08/02/2024 2:20 PM LION HUNTER Appointment [facility] [address] [place] [address] 08/02/2024 3:00 PM LION HUNTER Office Visit [facility] - Hematology/Oncology [address] [place] [phone] Remi Beckett MD [address] [place] [address] 08/18/2024 1:45 PM LION HUNTER Office Visit [facility] - ENT [address] [place] [phone] Neri Delgado MD [address] [place] [address] documented as of this encounter Procedures Procedure Name Priority Date/Time Associated Diagnosis Comments CBC W AUTO DIFFERENTIAL STAT 04/17/2024 3:07 PM CDT Encounter for antineoplastic chemotherapy Papillary carcinoma of thyroid (HCC) COMPREHENSIVE METABOLIC PANEL STAT 04/17/2024 3:07 PM CDT Encounter for antineoplastic chemotherapy Papillary carcinoma of thyroid (HCC) documented in this encounter Results * (ABNORMAL) CBC WITH DIFFERENTIAL (04/17/2024 3:07 PM CDT) WBC 9.5 4.0 - 10.7 x10E9/L 04/17/2024 3:14 PM T [facility] RBC Count 5.28(H) 3.90 - 5.20 x10E12/L 04/17/2024 3:14 PM T [facility] Hemoglobin 15.2 11.9 - 15.8 g/dL 04/17/2024 3:14 PM T [facility] Hematocrit 44.6 34.8 - 46.1 % 04/17/2024 3:14 PM T [facility] MCV 84.5 80.0 - 98.0 fL 04/17/2024 3:14 PM T [facility] MCH 28.8 26.7 - 33.6 pg 04/17/2024 3:14 PM T [facility] MCHC 34.1 31.7 - 36.3 g/dL 04/17/2024 3:14 PM T [facility] RDW-CV 14.6 11.3 - 14.8 % 04/17/2024 3:14 PM [facility] Platelet Count 279 150 - 420 x10E9/L 04/17/2024 3:14 PM [facility] MPV 9.4 7.8 - 11.4 fL 04/17/2024 3:14 PM [facility] Neutrophil % 73.6 41.0 - 74.0 % 04/17/2024 3:14 PM [facility] Lymphocyte % 16.9(L) 17.0 - 47.0 % 04/17/2024 3:14 PM [facility] Monocyte % 7.1 3.0 - 11.0 % 04/17/2024 3:14 PM [facility] Eosinophil % 1.8 0.0 - 7.0 % 04/17/2024 3:14 PM [facility] Basophil % 0.4 0.0 - 1.6 % 04/17/2024 3:14 PM [facility] Immature Granulocytes % 0.2 0.0 - 1.0 % 04/17/2024 3:14 PM [facility] Neutrophil Absolute 7.01 1.60 - 7.50 x10E9/L 04/17/2024 3:14 PM [facility] Lymphocyte Absolute 1.61 1.00 - 4.40 x10E9/L 04/17/2024 3:14 PM [facility] Monocyte Absolute 0.68 0.15 - 1.00 x10E9/L 04/17/2024 3:14 PM [facility] Eosinophil Absolute 0.17 0.00 - 0.60 x10E9/L 04/17/2024 3:14 PM [facility] Basophil Absolute 0.04 0.00 - 0.13 x10E9/L 04/17/2024 3:14 PM [facility] Blood BLOOD SPECIMEN / Unknown Lab Venipuncture / Unknown 04/17/2024 3:07 PM CDT 04/17/2024 3:11 PM T Remi Beckett MD LAB - HEMATOLOGY ORDERABLES [facility] [address] [place] [address], [facility] [phone] * (ABNORMAL) COMPREHENSIVE METABOLIC PANEL (04/17/2024 3:07 PM [facility]) BUN 25 7 - 26 mg/dL 04/17/2024 4:02 PM [facility] Creatinine 0.73 0.56 - 0.96 mg/dL 04/17/2024 4:02 PM [facility] Sodium 138 136 - 145 mmol/L 04/17/2024 4:02 PM [facility] Potassium 4.2 3.5 - 4.5 mmol/L 04/17/2024 4:02 PM [facility] Chloride 103 98 - 107 mmol/L 04/17/2024 4:02 PM [facility] CO2 23 22 - 29 mmol/L 04/17/2024 4:02 PM [facility] Glucose 95 70 - 115 mg/dL 04/17/2024 4:02 PM [facility] Calcium 9.4 8.4 - 10.2 mg/dL 04/17/2024 4:02 PM [facility] Protein Total 7.5 6.0 - 8.3 g/dL 04/17/2024 4:02 PM [facility] Albumin 3.8 3.4 - 5.0 g/dL 04/17/2024 4:02 PM [facility] Bilirubin Total 0.3 0.2 - 1.2 mg/dL 04/17/2024 4:02 PM [facility] Alkaline Phosphatase 80 40 - 150 U/L 04/17/2024 4:02 PM [facility] ALT 9 5 - 55 U/L 04/17/2024 4:02 PM [facility] AST 16 5 - 34 U/L 04/17/2024 4:02 PM [facility] Anion Gap 12 6 - 16 04/17/2024 4:02 PM [facility] BUN/Creatinine Ratio 34(H) 7 - 23 04/17/2024 4:02 PM CDT [facility] Osmolality Calculated 290 275 - 295 mOsm/kg 04/17/2024 4:02 PM CDT [facility] Albumin/Globulin Ratio 1.0(L) 1.1 - 2.3 04/17/2024 4:02 PM CDT [facility] eGFR by CKD-EPI >90 >=90 mL/min/1.7 3 m2 04/17/2024 4:02 PM CDT [facility] Blood BLOOD SPECIMEN / Unknown Lab Venipuncture / Unknown 04/17/2024 3:07 PM CDT 04/17/2024 3:11 PM CDT Remi Beckett MD LAB - CHEMISTRY ORDERABLES [facility] [address] [place] [address], [facility] [phone] documented in this encounter Visit Diagnoses Diagnosis Encounter for antineoplastic chemotherapy Papillary carcinoma of thyroid (HCC) Malignant neoplasm of thyroid gland documented in this encounter Care Teams Key Maker Relationship Specialty Start Date End Date Yaya Villatoro MD [address] [phone] PCP - General Internal Medicine 05/04/23 Joseph Manzanares MD [address] [place] [phone] Internal Medicine 04/21/23 documented as of this encounter
--- OUTSIDE RECORDS SUMMARY | 2024-07-23 07:07 | XMS_ITS | Encounter Summary ---
Author Organization [facility] Health Address [address] [place] [address] Care Team Providers Care Obstetrics Teacher Name Role Phone Joseph Manzanares MD Unavailable Yaya Villatoro MD Primary Care Provider [phone]- [phone] Reason for Visit * Reason Comments Refill Request Encounter Details Date Type Department Care Team (Late st Contact Info) Description 12/17/2023 Refill [facility] - Internal Med [address] [facility], [place] [address] Tiana Naylor, DO [address] [facility]?? [place], [place] [phone] Refill Request Social History Tobacco Use Types [...] Date Recorded PHQ2 TOTAL SCORE 1 11/25/2022 [facility] Mode of Occupat ional Health - Occupational Stress [...] st Contact Info) Description 07/25/2024 10:00 AM HAND MEXICAN FOOD MAKER Office Visit [facility] - Endocrinology [address] [place] [phone] Yosi Bustamante MD [address] [place] [address] 2L [place] [address] 07/26/2024 10:00 AM HAND MEXICAN FOOD MAKER Appointment [facility] [address] [place] [address] Neri Delgado MD [address] [place] [address] 07/26/2024 10:00 AM HAND MEXICAN FOOD MAKER Office Visit [facility] - ENT [address] [place] [phone] Myra Farmer, DEPORTATION OFFICER [address] [place] [address] 2L [place] [address] 07/26/2024 11:15 AM HAND MEXICAN FOOD MAKER Office Visit [facility] - ENT [address] [place] [phone] Neri Delgado MD [address] [place] [address] 08/02/2024 2:20 PM HAND MEXICAN FOOD MAKER Appointment [facility] [address] [place] [address] 08/02/2024 3:00 PM HAND MEXICAN FOOD MAKER Office Visit [facility] - Hematology/Oncology [address] [place] [phone] Remi Beckett MD [address] [place] [phone] 08/18/2024 1:45 PM HAND MEXICAN FOOD MAKER Office Visit [facility] - ENT [address] [place] [phone] Neri Delgado MD [address] [place] [address] documented as of this encounter Visit Diagnoses Diagnosis Hyperlipidemia, unspecified hyperlipidemia type documented in this encounter Care Teams Obstetrics Teacher Relationship Specialty Start Date End Date Yaya Villatoro MD [address] [phone] PCP - General Internal Medicine 05/04/23 Joseph Manzanares MD [facility] [place] [address] Internal Medicine 04/21/23 documented as of this encounter
--- OUTSIDE RECORDS SUMMARY | 2024-07-23 07:07 | XMS_ITS | Encounter Summary ---
Author Organization [facility] Health Address [address] [facility] [address] Care Team Providers Care Strategic Account Manager Name Role Phone Joseph Manzanares MD Unavailable Yaya Villatoro MD Primary Care Provider +1- [phone] Encounter Details Date Type Department Care Team (Latest Contact Info) Description 03/07/2024 12:49 PM CDT - 03/07/2024 1:59 PM CDT Hospital Encounter [facility] [address] [facility], 2nd [place] [address] Discharge Disposition: Home or Self Care Social [...] Date Recorded PHQ2 TOTAL SCORE 1 11/25/2022 [facility] Occupat ional Health - Occupational [...] naloxone HCl (Narcan) 4 MG/0.1ML nasal spray [place] 1 (one) spray into the nose as [...] Every 180 days 1 mL 2 01/24/2024 4 lenvatinib (Lenvima) 2 x 10 MG & 4 MG capsuleIndications:Papil rajinder carcinoma of thyroid (HCC) Take 20 mg by mouth once daily Take two 10 mg capsules (20 mg total) by mouth once a day. 30 capsule 3 03/07/2024 4 documented as of this encounter Plan of Treatment Upcoming Encounters Date Type Department Care Team (Late st Contact Info) Description 07/25/2024 10:00 AM TEST DATA DEVELOPER Office Visit [facility] - Endocrinology [address] [place] [phone] Yosi Bustamante MD [address] [place] [address] 2L [place] [address] 07/26/2024 10:00 AM TEST DATA DEVELOPER Appointment [facility] [address] [place] [address] Neri Delgado MD [address] [place] [address] 07/26/2024 10:00 AM TEST DATA DEVELOPER Office Visit [facility] - ENT [address] [place] [phone] Myra Farmer, LOGISTIC MANAGER [address] [place] [address] 2L [place] [address] 07/26/2024 11:15 AM TEST DATA DEVELOPER Office Visit [facility] - ENT [address] [place] [phone] Neri Delgado MD [address] [place] [address] 08/02/2024 2:20 PM TEST DATA DEVELOPER Appointment [facility] [address] [place] [address] 08/02/2024 3:00 PM TEST DATA DEVELOPER Office Visit [facility] - Hematology/Oncology [address] [place] [phone] Remi Beckett MD [address] [place] [phone] 08/18/2024 1:45 PM TEST DATA DEVELOPER Office Visit [facility] - ENT [address] [place] [address], [place] [phone] Neri Delgado MD [address] [place] [address] documented as of this encounter Procedures Procedure Name Priority Date/Time Associated Diagnosis Comments THYROGLOBULIN REFLEX PROFILE Routine 03/07/2024 12:53 PM CDT Thyroid cancer (HCC) Postoperative hypothyroidism Malignant tumor of thyroid gland (HCC) Cancer, metastatic to bone (HCC) Hypocalcemia Other hypoparathyroidism Papillary carcinoma of thyroid (HCC) THYROGLOBULIN BY ANTONIETA RFLXED Routine 03/07/2024 12:53 PM CDT Thyroid cancer (HCC) Postoperative hypothyroidism Malignant tumor of thyroid gland (HCC) Cancer, metastatic to bone (HCC) Hypocalcemia Other hypoparathyroidism Papillary carcinoma of thyroid (HCC) CBC W AUTO DIFFERENTIAL STAT 03/07/2024 12:53 PM CDT Papillary carcinoma of thyroid (HCC) COMPREHENSIVE METABOLIC PANEL STAT 03/07/2024 12:53 PM CDT Papillary carcinoma of thyroid (HCC) PHOSPHORUS BLOOD Routine 03/07/2024 12:5 3 PM CDT Postoperative hypothyroidism Thyroid cancer (HCC) Hypocalcemia Other hypoparathyroidism Malignant tumor of thyroid gland (HCC) Cancer, metastatic to bone (HCC) TSH Routine 03/07/2024 12:53 PM CDT Thyroid cancer (HCC) Postoperative hypothyroidism Malignant tumor of thyroid gland (HCC) Cancer, metastatic to bone (HCC) Hypocalcemia Other hypoparathyroidism Papillary carcinoma of thyroid (HCC) documented in this encounter Results * (ABNORMAL) THYROGLOBULIN BY ANTONIETA RFLXED (03/07/2024 12:53 PM CDT) Thyroglobulin by ANTONIETA 174.0(H) 1.5 - 38.5 ng/mL 03/09/2024 9:12 AM CDT [facility] ([facility]) Comment: According to the National Academy [...] SPECIMEN / Unknown Lab Venipuncture / Unknown 03/07/2024 12:53 PM CDT 03/07/2024 1:00 PM CDT Narrative [facility] ([facility]) - 03/09/2024 9:12 AM CDT Performed at: ??01 - [facility] [address] [place], [place] ??[id number] Diesel Truck Technician: Oral Melendez PhD, Phone: ??[phone] Yosi Bustamante MD LAB - CHEMISTRY ORD ERABLES Performing Organization Address City/[facility]/ZIP Co de Phone Number [facility]) [address] [place] [address] * (ABNORMAL) PHOSPHORUS BLOOD (03/07/2024 12:53 PM CDT) Pathologist [facility] Phosphorus 5.2(H) 2.9 - 5.1 mg/dL 03/07/2024 1:32 PM CDT [facility] Blood BLOOD SPECIMEN / Unknown Lab Venipuncture / Unknown 03/07/2024 12:53 PM CDT 03/07/2024 1:04 PM CDT Yosi Bustamante MD LAB - CHEMISTRY ORD ERABLES [address] [address], [facility] [phone] * THYROGLOBULIN REFLEX PROFILE (03/07/2024 12:53 PM CDT) [facility] Thyroglobulin Antibody <1.0 0.0 - 0.9 IU/mL 03/09/2024 9:12 AM CDT [facility] ([facility]) Comment: Thyroglobulin Antibody measured by [facility] [place] Method[employer] It should be noted that the presence of thyroglobulin antibodies may not be pathogenic nor diagnostic, especially at very low levels. The assay finance controller has found that four percent of individuals without evidence of thyroid disease or autoimmunity will have positive TgAb levels up to 4 IU/mL. Blood BLOOD SPECIMEN / Unknown Lab Venipuncture / Unknown 03/07/2024 12:53 PM CDT 03/07/2024 1:00 PM CDT Narrative [facility] ([facility]) - 03/09/2024 9:12 AM CDT Performed at: ??01 - [facility] [address] [place], [place] ??[id number] Diesel Truck Technician: Oral Melendez PhD, Phone: ??[phone] Yosi Bustamante MD LAB - CHEMISTRY ORD ERABLES Performing Organization Address City/[facility]/ZIP Co de Phone Number [facility] ([facility]) [address] [place] [address] * TSH (03/07/2024 12:53 PM CDT) Pathologist [facility] TSH 0.616 0.350 - 4.940 uIU/mL 03/07/2024 1:50 PM CDT [facility] Blood BLOOD SPECIMEN / Unknown Lab Venipuncture / Unknown 03/07/2024 12:53 PM CDT 03/07/2024 1:04 PM CDT Yosi Bustamante MD LAB - CHEMISTRY ORD ERABLES [facility] [address] [place] [phone], [facility] [phone] * (ABNORMAL) COMPREHENSIVE METABOLIC PANEL (03/07/2024 12:53 PM CDT) BUN 28(H) 7 - 26 mg/dL 03/07/2024 1:32 PM CDT [facility] Creatinine 0.78 0.56 - 0.96 mg/dL 03/07/2024 1:32 PM CDT [facility] Sodium 134(L) 136 - 145 mmol/L 03/07/2024 1:32 PM [facility] Potassium 4.0 3.5 - 4.5 mmol/L 03/07/2024 1:32 PM [facility] Chloride 99 98 - 107 mmol/L 03/07/2024 1:32 PM [facility] CO2 24 22 - 29 mmol/L 03/07/2024 1:32 PM [facility] Glucose 91 70 - 115 mg/dL 03/07/2024 1:32 PM [facility] Calcium 9.4 8.4 - 10.2 mg/dL 03/07/2024 1:32 PM [facility] Protein Total 7.6 6.0 - 8.3 g/dL 03/07/2024 1:32 PM [facility] Albumin 3.8 3.4 - 5.0 g/dL 03/07/2024 1:32 PM [facility] Bilirubin Total 0.3 0.2 - 1.2 mg/dL 03/07/2024 1:32 PM [facility] Alkaline Phosphatase 85 40 - 150 U/L 03/07/2024 1:32 PM [facility] ALT 12 5 - 55 U/L 03/07/2024 1:32 PM [facility] AST 14 5 - 34 U/L 03/07/2024 1:32 PM [facility] Anion Gap 11 6 - 16 03/07/2024 1:32 PM [facility] BUN/Creatinine Ratio 36(H) 7 - 23 03/07/2024 1:32 PM [facility] Osmolality Calculated 283 275 - 295 mOsm/kg 03/07/2024 1:32 PM [facility] Albumin/Globulin Ratio 1.0(L) 1.1 - 2.3 03/07/2024 1:32 PM [facility] eGFR by CKD-EPI 84(L) >=90 mL/min/1.7 3 m2 03/07/2024 1:32 PM [facility] Blood BLOOD SPECIMEN / Unknown Lab Venipuncture / Unknown 03/07/2024 12:53 PM CDT 03/07/2024 1:04 PM T Remi Beckett MD LAB - CHEMISTRY ORDERABLES [facility] [address] [place] [address], [facility] [phone] * (ABNORMAL) CBC WITH DIFFERENTIAL (03/07/2024 12:53 PM T) WBC 8.9 4.0 - 10.7 x10E9/L 03/07/2024 1:07 PM [facility] RBC Count 5.21(H) 3.90 - 5.20 x10E12/L 03/07/2024 1:07 PM [facility] Hemoglobin 15.0 11.9 - 15.8 g/dL 03/07/2024 1:07 PM [facility] Hematocrit 44.5 34.8 - 46.1 % 03/07/2024 1:07 PM [facility] MCV 85.4 80.0 - 98.0 fL 03/07/2024 1:07 PM [facility] MCH 28.8 26.7 - 33.6 pg 03/07/2024 1:07 PM [facility] MCHC 33.7 31.7 - 36.3 g/dL 03/07/2024 1:07 PM [facility] RDW-CV 13.8 11.3 - 14.8 % 03/07/2024 1:07 PM [facility] Platelet Count 265 150 - 420 x10E9/L 03/07/2024 1:07 PM [facility] MPV 9.6 7.8 - 11.4 fL 03/07/2024 1:07 PM [facility] Neutrophil % 74.6(H) 41.0 - 74.0 % 03/07/2024 1:07 PM [facility] Lymphocyte % 16.8(L) 17.0 - 47.0 % 03/07/2024 1:07 PM [facility] Monocyte % 7.1 3.0 - 11.0 % 03/07/2024 1:07 PM [facility] Eosinophil % 1.0 0.0 - 7.0 % 03/07/2024 1:07 PM CDT [facility] Basophil % 0.3 0.0 - 1.6 % 03/07/2024 1:07 PM [facility] Immature Granulocytes % 0.2 0.0 - 1.0 % 03/07/2024 1:07 PM [facility] Neutrophil Absolute 6.59 1.60 - 7.50 x10E9/L 03/07/2024 1:07 PM [facility] Lymphocyte Absolute 1.49 1.00 - 4.40 x10E9/L 03/07/2024 1:07 PM [facility] Monocyte Absolute 0.63 0.15 - 1.00 x10E9/L 03/07/2024 1:07 PM [facility] Eosinophil Absolute 0.09 0.00 - 0.60 x10E9/L 03/07/2024 1:07 PM [facility] Basophil Absolute 0.03 0.00 - 0.13 x10E9/L 03/07/2024 1:07 PM [facility] Blood BLOOD SPECIMEN / Unknown Lab Venipuncture / Unknown 03/07/2024 12:53 PM CDT 03/07/2024 1:03 PM CDT Remi Beckett MD LAB - HEMATOLOGY ORDERABLES Performing Organization Address [facility]/State/[facility] Co de Phone Number [facility] [address] [place] [address], [facility] [phone] documented in this encounter Visit Diagnoses Diagnosis Postoperative hypothyroidism Postsurgical hypothyroidism Thyroid cancer (HCC) Malignant neoplasm of thyroid gland Hypocalcemia Other hypoparathyroidism (HCC) Malignant tumor of thyroid gland (HCC) Malignant neoplasm of thyroid gland Cancer, metastatic to bone (HCC) 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
--- OUTSIDE RECORDS SUMMARY | 2024-07-23 07:07 | XMS_ITS | Encounter Summary ---
Author Organization [facility] Health Address [address] [place] [address] Care Team Providers Care Retort Furnace Helper Name Role Phone Joseph Manzanares MD Unavailable Yaya Villatoro MD Primary Care Provider +1- [phone] Encounter Details Date Type Department Care Team (Latest Contact Info) Description 02/29/2024 Travel Social History Tobacco Use Types Packs/Day [...] Date Recorded PHQ2 TOTAL SCORE 1 11/25/2022 [facility] - Occupational [...] st Contact Info) Description 07/25/2024 10:00 AM DIRECTOR OF PLANNING [facility] Endocrinology [address] [place] [phone] Yosi Bustamante MD [address] [place] [address] 2L [place] [address] 07/26/2024 10:00 AM DIRECTOR OF PLANNING Appointment [facility]IC RAD [address] [place] [address] Neri Delagdo MD [address] [place] [address] 07/26/2024 10:00 AM DIRECTOR OF PLANNING Office Visit [facility] - ENT [address] [place] [phone] Myra Farmer, PACKAGE MAKER [address] [place] [address] 2L [place] [phone] 07/26/2024 11:15 AM DIRECTOR OF PLANNING Office Visit [facility] - ENT [address] [place] [phone] Neri Delgado MD [address] [place] [address] 08/02/2024 2:20 PM DIRECTOR OF PLANNING Appointment [facility] [address] [place] [address] 08/02/2024 3:00 PM DIRECTOR OF PLANNING Office Visit [facility] - Hematology/Oncology [address] [place] [phone] Remi Beckett MD [address] [place] [phone] 08/18/2024 1:45 PM DIRECTOR OF PLANNING Office Visit [facility] - ENT [address] [place] [address] Neri Delgado MD [address] [place] [address] documented as of this encounter Visit Diagnoses Not on filedocumented in this encounter Care Teams Retort Furnace Helper Relationship Specialty Start Date End Date Yaya Villatoro MD [address] [phone] PCP - General Internal Medicine 05/04/23 Joseph Manzanares MD [address] [place] [phone] Internal Medicine 04/21/23 documented as of this encounter
--- OUTSIDE RECORDS SUMMARY | 2024-07-23 07:07 | XMS_ITS | Encounter Summary ---
Author Organization [facility] Health Address [address] [place] [address] Care Team Providers Care Printing Mechanist Name Role Phone Joseph Manzanares MD Unavailable Yaya Villatoro MD Primary Care Provider [phone]- [phone] Encounter Details Date Type Department Care Team (Latest Contact Info) Description 01/14/2024 Travel Social History Tobacco Use Types Packs/Day [...] Date Recorded PHQ2 TOTAL SCORE 1 11/25/2022 [facility] - Occupational Stress [...] st Contact Info) Description 07/25/2024 10:00 AM RADIATION ONCOLOGY THERAPIST Office Visit [facility] - Endocrinology [address] [place] [phone] Yosi Bustamante MD [address] [place] [address] 2L [place] [address] 07/26/2024 10:00 AM RADIATION ONCOLOGY THERAPIST Appointment [facility] DI[facility]IC RAD [address] [place] [address] Neri Delgado MD [address] [place] [address] 07/26/2024 10:00 AM RADIATION ONCOLOGY THERAPIST Office Visit [facility] - ENT [address] [place] [phone] Myra Farmer, REPLANTING MACHINE CREW [address] [place] [address] 2L [place] [phone] 07/26/2024 11:15 AM RADIATION ONCOLOGY THERAPIST Office Visit [facility]NT [address] [place] [phone] Neri Delgado MD [address] [place] [address] 08/02/2024 2:20 PM RADIATION ONCOLOGY THERAPIST Appointment [facility] [address] [place] [address] 08/02/2024 3:00 PM RADIATION ONCOLOGY THERAPIST Office Visit [facility] - Hematology/Oncology [address] [place] [phone] Remi Beckett MD [address] [place] [phone] 08/18/2024 1:45 PM RADIATION ONCOLOGY THERAPIST Office Visit [facility] - ENT [address] [place] [address] Neri Delgado MD [address] [place] [address] documented as of this encounter Visit Diagnoses Not on filedocumented in this encounter Care Teams Printing Mechanist Relationship Specialty Start Date End Date Yaya Villatoro MD [address] [phone] PCP - General Internal Medicine 05/04/23 Joseph Manzanares MD [address] [place] [phone] Internal Medicine 04/21/23 documented as of this encounter
--- OUTSIDE RECORDS SUMMARY | 2024-07-23 07:07 | XMS_ITS | Encounter Summary ---
Author Organization [facility] Health Address [address] [facility] [place] [address] Care Team Providers Care Supercharger Mechanic Name Role Phone Joseph Manzanares MD Unavailable Yaya Villatoro MD Primary Care Provider [phone]- [phone] Reason for Visit * Reason Comments Dysphagia oropharyngeal dyspha chino/new sore in throat Sore Throat Painful to swallow / sore in throat * Consult, Test & Treat (Routine) - Closed Specialty Diagnoses / Procedures Referred By Contact Referred To Contact Otolaryngology / ENT-Otolaryngology Yaya Villatoro MD [address] [phone] Neri Delgado MD [address] [place] [address] Referral ID Status Reason Start Date Expiration Date Visits Re quested Visits Authorized [id number] Closed 02/22/2024 08/24/2024 1 1 Encounter Details Date Type Department Care Team (Late st Contact Info) Description 02/25/2024 2:30 PM CDT Office Visit [facility] - ENT [address] [place] [phone] Marcio Mcintosh MD [address] [place] [address] Neri Delgado MD [address] [place] [phone] Thyroid cancer (HCC) (Primary Dx); Odynophagia Social History Tobacco Use Types Packs/Day Years [...] Date Recorded PHQ2 TOTAL SCORE 1 11/25/2022 [facility] - Occupational [...] Sign Reading Time Taken Comments Blood Pressure 142/84 02/25/2024 2:20 PM CDT Pulse 86 02/25/2024 2:20 PM CDT Temperature - - Respiratory Rate - - Oxygen Saturation - - Inhaled Oxygen Concentration - - Weight 56.2 kg (124 lb) 02/25/2024 2:20 PM CDT Height 157.5 cm (5' 2) 02/25/2024 2:20 PM CDT Body Mass Index 22.68 02/25/2024 2:20 PM CDT documented in this [...] this encounter Patient Instructions * Patient Instructions* Priscilla Bernstein MA - 02/25/2024 2:20 PM CDT Thank you for visiting [facility] Otolaryngology - Head & Neck Surgery. We appreciate your confidence in allowing us to participate in your health care. You may receive a survey about your visit with us today. Making our patients happy isn???t just happy talk; it???s ourmission. Please tell us if we made the right impression on you- and how we can serve you better. Please SAVE the information below, it will assist you when it???s time for you to contact us. To MAKE - CHANGE - CANCEL an office appointment If you become ill, need to be seen before your next scheduled appointment, or need to cancel or reschedule an appointment, please call our office at [phone] Wednesday through Wednesday from 8:30 am to4:30 pm. You can also request a routine appointment through your [employer] account. Prescription Refills Contact your pharmacy to request all refills. The pharmacy will need to fax the request to us at Please allow a minimum of 48-72 hours for your prescription to be completed. Your pharmacy will notify you when your prescription is ready to be picked up. Medical Emergency / After Hours Contact Information If you have a medical emergency, please call 911 or go to the nearest emergency room. For urgent medical calls, which cannot wait until the office opens, please call the medical exchange at and ask the biazzi nitrator operator to page the ENT physician hydro station operator. *Caller ID blocking service will need to be turned off for your call to be returned. We also specialize in Hearing Aids, Allergy testing, swallowing disorders, voice problems, cancer diagnosis, and so much more. Visit our website at [email or web address] for information about our practice and an interactive health encyclopedia. documented in this encounter Progress Notes * Neri Delgado MD - 02/27/2024 9:21 AM CDT CC: Chief Complaint Patient presents with Dysphagia oropharyngeal dysphagia/new sore in throat Sore Throat Painful to swallow /sore in throat Diagnosis: Site: Thyroid Histology: PTC Stage: [id number] AJCC IVb Details: Positive margins, LVI +, PNI + (including Right RLN), nodes, JADON + Treatment History: 08/19/20: total thyroidectomy requiring sacrifice of Right RLN/tracheal resection/reanastamosis, bilateral lateral and central neck dissection (Comer) 02/05/2022: Excision of right central neck mass- Palpable tumor approximately 1 cm in size overlying the right thyroid ala and cricothyroid membrane excised including overlying strap musculature. (Massa) 03/19/21: WARD 09/21/22 Completed 2400 Gy to the cervical spine (Arnaldo) 10/02/2022: C2-T2 fusion and decompression C3-C7 and resection extramedullary spine tumor (Dalia) HPI: Brisa Hogan is a 61 year old female presenting for follow up of her complex thyroid cancer dueto 2 weeks of right odynophagia. At last visit we had recommended MBS to further evaluate her dysphagia which has not been completed but the pain is new and focal on the right around the level of thehyoid. Denies voice changes or neck masses. She had MRI c-spine and PET done today for surveillance. PET is difficult to interpret due to significant uptake in the muscles throughout the neck but no clearly progressive disease in the previously seen central neck or spine. No recent URIs. She continues to smoke. Past Medical History: Diagnosis Date Anxiety and [...] N/A; DIRECT LARYNGOSCOPY WITH BIOPSY Polypectomy cervical Medications: Current Outpatient Medications Medication Sig atorvastatin (Lipitor) 40 MG tablet TAKE 1 TABLET BY MOUTH EVERYDAY AT BEDTIME buPROPion SR 12hr (Wellbutrin-SR) 100 MG tablet Take 1 (one) tablet by mouth 2 times daily calcitriol (Rocaltrol) 0.5 MCG capsule Take 1 (one) capsule by mouth once daily Reasons: Low Amountof Calcium in the Blood celecoxib (CeleBREX) 200 MG capsule Take 1 (one) capsule by mouth once daily cyclobenzaprine (Flexeril) 5 MG tablet Take 1 [...] mouth 3 times daily hydrOXYzine HCl (Atarax) 10 MG tablet Take 1 (one) tablet by mouth 3 times daily hydrOXYzine HCl (Atarax) 25 MG tablet Take 1 (one) tablet to 2 (two) tablets by mouth as needed ibuprofen (Motrin) 200 MG tablet Take 4 (four) tablets by mouth 2 times daily lenvatinib (Lenvima) 2 x 10 MG & 4 MG capsule Take 20 mg by mouth once daily Take two 10 mg capsules (20 mg total) by mouth once a day. levothyroxine (Synthroid) 112 MCG tablet Take 1 (one) tablet by mouth daily before breakfast Reasons: Cancer of Thyroid, Underactive Thyroid naloxone HCl (Narcan) 4 MG/0.1ML nasal spray [place] 1 (one) spray into the nose as [...] for Nausea/Vomiting (Patient not taking: Reported on 02/25/2024) traZODone (DESYREL) 50 MG tablet Take 1 (one) tablet by mouth at bedtime No current facility-administered medications for this visit. Allergies: Allergies Allergen Reactions Kiwi Extract Anaphylaxis Social History: Smokin+ pack-years, currently ~5 cigarettes/day. Exam: Vitals: 02/25/24 1420 BP: 142/84 Pulse: 86 Weight: 56.2 kg (124 lb) Height: 1.575 m (5' 2) General: Awake and alert in no apparent distress breathing comfortably Face: No scars, lesions or masses visible or palpable Ears: Right Pinna normal, EAC normal Left Pinna normal, EAC normal Nose: External nose without lesions. Patent bilaterally, mucosa intact, septum without significant deviation Oral Cavity/Oropharynx: Lips without lesions. Tongue is mobile, palate elevates symmetrically. The buccal mucosa, palate, gingiva were examined and no lesions seen and no masses palpable Neck: No palpable lymphadenopathy bilaterally. Well healed anterior and lateral neck scars. The salivary glands are without palpable masses. Voice: moderate croakiness and hoarseness Neurologic: Cranial nerves III-XII grossly intact Procedure Note Anesthesia: Lidocaine 2% and Stone-Synephrine 1/2% Endoscopy Type: Flexible Cpotl-Bbdpxvrhrdaswp-Wqdlwwtozdzi Procedure Details: Informed consent was obtained. The patient was placed in the sitting position. After topical anesthesia and decongestion, the 4 mm laryngoscope was passed. The nasal cavities, nasopharynx, oropharynx, hypopharynx, and larynx were all examined. Vocal cords were examined during resp iration and phonation. Findings: -no mucosal lesions or masses seen. Stable right vocal cord immobility but with good compensation. There is pooling of clear secretions in the right piriform which also reproduces her pain with palpation from the scope. Disposition: The patient tolerated procedure well. Complications: None IMAGING: PET and MRI done today reviewed, see HPI Assessment/Plan: 1. 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 No new lesions or masses on exam today or clear progression on imaging fromtoday 2. dysphagia, likely multifactorial in origin Disease status: s/p radiation therapy and cervical spinal fusion likely contributing to dysphagia. Discussed with MEDICAL COLLECTIONS SPECIALIST. - would still like to repeat MBS but will await improvement in pain 3. Odynophagia, acute. Unclear etiology but short term. No clear association with her cancer. Will manage conservatively with scheduled tylenol and NSAIDs, plus topical lidocaine prior to eating. 3. Hoarseness, stable - Known right vocal cord paralysis s/p sacrifice of R RLN - Good glottic closure on flex scope today Follow up: pending [facility] Neri Delgado MD 9:29 AM 02/27/24 documented in this encounter Procedure Notes * Neri Delgado MD - 02/27/2024 9:28 AM CDTAssociated Order(s): PROC ENDOSCOPY-LARYNX Procedure(s): OK LARYNGOSCOPY,FLEX FIBER,DIAGNOSTIC Pre-Procedure Diagnose(s): Thyroid cancer (HCC); Odynophagia Procedure Note Anesthesia: Lidocaine 2% and Stone-Synephrine 1/2% Endoscopy Type: Flexible Zrkwy-Mcdzkgsgjnoohp-Ejqmyebwekxj Procedure Details: Informed consent was obtained. The patient was placed in the sitting position. After topical anesthesia and decongestion, the 4 mm laryngoscope was passed. The nasal cavities, nasopharynx, oropharynx, hypopharynx, and larynx were all examined. Vocal cords were examined during resp iration and phonation. Findings: -no mucosal lesions or masses seen. Stable right vocal cord immobility but with good compensation. There is pooling of clear secretions in the right piriform which also reproduces her pain with palpation from the scope. Disposition: The patient tolerated procedure well. Complications: None documented in this encounter Plan of Treatment Upcoming Encounters Date Type Department Care Team (Late st Contact Info) Description 07/25/2024 10:00 AM DESIGN DRAFTSMAN Office Visit [facility] - Endocrinology [address] [place] [phone] Yosi Bustamante MD [address] [place] [address] 2L [place] [address] 07/26/2024 10:00 AM DESIGN DRAFTSMAN Appointment [facility] DIAGNOSTIC RAD [address] [place] [phone] Neri Delgado MD [address] [place] [address] 07/26/2024 10:00 AM DESIGN DRAFTSMAN Office Visit [facility] - ENT [address] [place] [phone] Myra Farmer, MEDICAL COLLECTIONS SPECIALIST [address] [place] [address] 2L [place] [phone] 07/26/2024 11:15 AM DESIGN DRAFTSMAN Office Visit [facility] - ENT [address] [place] [phone] Neri Delgado MD [address] [place] [address] 08/02/2024 2:20 PM DESIGN DRAFTSMAN Appointment [facility] [address] [place] [address] 08/02/2024 3:00 PM DESIGN DRAFTSMAN [facility]ology/Oncology [address] [place] [phone] Remi Beckett MD [address] [place] [phone] 08/18/2024 1:45 PM DESIGN DRAFTSMAN Office Visit [facility] - ENT [address] [place] [address] Neri Delgado MD [address] [place] [address] documented as of this encounter Procedures Procedure Name Priority Date/Time Associated Diagnosis Comments OK LARYNGOSCOPY,FLEX FIBER,DIAGNOSTIC Routine 02/27/2024 9:28 AM CDT Thyroid cancer (HCC) Odynophagia documented in this encounter Results * OK LARYNGOSCOPY,FLEX FIBER,DIAGNOSTIC (02/27/2024 9:28 AM CDT) Narrative Neri Delgado MD - 02/27/2024 9:28 AM CDT Neri Delgado MD ? 02/27/2024 ??9:32 AM Procedure Note Anesthesia: Lidocaine 2% and Stone-Synephrine 1/2% Endoscopy Type: ??Flexible Koukw-Ooawmsqrmubbbi-Hxxydhafgbwy Procedure Details: ??Informed consent was obtained. ??The [...] Neri Delgado MD PROCEDURE/MINOR SURG ICAL ORDERABLES documented in this encounter Visit Diagnoses Diagnosis Thyroid cancer (HCC)- Primary Malignant neoplasm of thyroid gland Odynophagia Dysphagia, unspecified documented in this encounter Care Teams Supercharger Mechanic Relationship Specialty Start Date End Date Yaya Villatoro MD [address] [facility] [address] [place] [phone] PCP - General Internal Medicine 05/04/23 Joseph Manzanares MD [address] [place] [address] Internal Medicine 04/21/23 documented as of this encounter
--- OUTSIDE RECORDS SUMMARY | 2024-07-23 07:07 | XMS_ITS | Encounter Summary ---
Author Organization [facility] Health Address [address] [place] [address] Care Team Providers Care Perforating Machine Operator Name Role Phone Joseph Manzanares MD Unavailable Yaya Villatoro MD Primary Care Provider +1- [phone] Reason for Visit * Reason Onset Date Comments Medication Prior Auth Request 12/24/2023 Encounter Details Date Type Department Care Team (Late st Contact Info) Description 12/24/2023 Telephone [facility] - Hematology/Oncology [address] [place] [phone] Remi Beckett MD [address] [place] [phone] Medication Prior Auth Request Social History Tobacco Use Types Packs/Day [...] Date Recorded PHQ2 TOTAL SCORE 1 11/25/2022 [facility] Occupat ional [...] place to sleep or slept in a detention (including now)? No 10/02/2022 Sex and Gender [...] encounter Miscellaneous Notes * Telephone Encounter - Radha Whiteside RPhT - 12/24/2023 4:33 PM CDT PA for Lenvima has been submitted via [facility] Preston: [id number] Per Insurance: Sharath is reviewing your PA request. You may close this dialog, return to your dashboard, and perform other tasks. To check for an update later, open this request again from your dashboard. If Sharath has not replied within 24 hours for urgent requests or within 48 hours for standard requests, please contact [facility] at [phone]. Note will be updated once determination has been reached. documented in this encounter Plan of Treatment Upcoming Encounters Date Type Department Care Team (Late st Contact Info) Description 07/25/2024 10:00 AM SOCIAL WORK MSW Office Visit [facility] - Endocrinology [address] [place] [phone] Yosi Bustamante MD [address] [place] [address] [place] [address] 07/26/2024 10:00 AM SOCIAL WORK MSW Appointment [facility] DI[facility]NOSTIC RAD [address] [place] [phone] Neri Delgado MD [address] [place] [address] 07/26/2024 10:00 AM SOCIAL WORK MSW Office Visit [facility] - ENT [address] [place] [phone] Myra Farmer, EVENTS MANAGER [address] [place] [address] [place] [phone] 07/26/2024 11:15 AM SOCIAL WORK MSW Office Visit [facility] - ENT [address] [place] [phone] Neri Delgado MD [address] [place] [address] 08/02/2024 2:20 PM SOCIAL WORK MSW Appointment [facility] [address] [place] [address] 08/02/2024 3:00 PM SOCIAL WORK MSW Office Visit [facility] - Hematology/Oncology [address] [place] [phone] Remi Beckett MD [address] [place] [phone] 08/18/2024 1:45 PM SOCIAL WORK MSW Office Visit [facility] - ENT [address] [place] [phone] Neri Delgado MD [address] [place] [address] documented as of this encounter Visit Diagnoses Not on filedocumented in this encounter Care Teams Perforating Machine Operator Relationship Specialty Start Date End Date Yaya Villatoro MD [address] [place] [phone] PCP - General Internal Medicine 05/04/23 Joseph Manzanares MD [address] [place] [phone] Internal Medicine 04/21/23 documented as of this encounter
--- OUTSIDE RECORDS SUMMARY | 2024-07-23 07:07 | XMS_ITS | Encounter Summary ---
Author Organization [facility] Health Address [address] [place] [address] Care Team Providers Care Postpartum Nurse Name Role Phone Joseph Manzanares MD Unavailable Yaya Villatoro MD Primary Care Provider [phone] Encounter Details Date Type Department Care Team (Latest Contact Info) Description 03/20/2024 2:37 PM CDT - 03/20/2024 11:59 PM CDT Hospital Encounter [facility] [address] [facility] [address] [address] [place] [address] Discharge Disposition: Home or Self Care Social [...] Date Recorded PHQ2 TOTAL SCORE 1 11/25/2022 [facility] - Occupational [...] naloxone HCl (Narcan) 4 MG/0.1ML nasal spray [place] 1 (one) spray into the nose as [...] once a day. 30 capsule 3 03/07/2024 documented as of this encounter Plan of Treatment Upcoming Encounters Date Type Department Care Team (Late st Contact Info) Description 07/25/2024 10:00 AM COKE CRUSHER OPERATOR Office Visit [facility] - Endocrinology [address] [place] [phone] Yosi Bustamante MD [address] [place] [address] 2L [place] [address] 07/26/2024 10:00 AM COKE CRUSHER OPERATOR Appointment [facility] DIAGNOSTIC RAD [address] [place] [address] Neri Delgado MD [address] [place] [phone] 07/26/2024 10:00 AM COKE CRUSHER OPERATOR Office Visit [facility] - ENT [address] [place] [phone] Myra Farmer, SOAP WORKER [address] [place] [address] 2L [place] [phone] 07/26/2024 11:15 AM COKE CRUSHER OPERATOR Office Visit [facility] - ENT [address] [place] [phone] Neri Delgado MD [address] [place] [phone] 08/02/2024 2:20 PM COKE CRUSHER OPERATOR Appointment [facility] [address] [place] [address] 08/02/2024 3:00 PM COKE CRUSHER OPERATOR Office Visit [facility] - Hematology/Oncology [address] [place] [phone] [place] [address] [place] [phone] 08/18/2024 1:45 PM COKE CRUSHER OPERATOR Office Visit [facility] - ENT [address] [place] [address] Neri Delgado MD [facility] [place] [address] documented as of this encounter Procedures Procedure Name Priority Date/Time Associated Diagnosis Comments THYROGLOBULIN REFLEX PROFILE Routine 03/20/2024 2:41 PM CDT Thyroid cancer (HCC) Postoperative hypothyroidism Malignant tumor of thyroid gland (HCC) Cancer, metastatic to bone (HCC) Hypocalcemia Other hypoparathyroidism Papillary carcinoma of thyroid (HCC) THYROGLOBULIN BY ANTONIETA RFLXED Routine 03/20/2024 2:41 PM CDT Thyroid cancer (HCC) Postoperative hypothyroidism Malignant tumor of thyroid gland (HCC) Cancer, metastatic to bone (HCC) Hypocalcemia Other hypoparathyroidism Papillary carcinoma of thyroid (HCC) CBC W AUTO DIFFERENTIAL STAT 03/20/2024 2:41 PM CDT Papillary carcinoma of thyroid (HCC) COMPREHENSIVE METABOLIC PANEL STAT 03/20/2024 2:41 PM CDT Papillary carcinoma of thyroid (HCC) PHOSPHORUS BLOOD Routine 03/20/2024 2:41 PM CDT Postoperative hypothyroidism Thyroid cancer (HCC) Hypocalcemia Other hypoparathyroidism Malignant tumor of thyroid gland (HCC) Cancer, metastatic to bone (HCC) TSH Routine 03/20/2024 2:41 PM CDT Thyroid cancer (HCC) Postoperative hypothyroidism Malignant tumor of thyroid gland (HCC) Cancer, metastatic to bone (HCC) Hypocalcemia Other hypoparathyroidism Papillary carcinoma of thyroid (HCC) documented in this encounter Results * (ABNORMAL) THYROGLOBULIN BY ANTONIETA RFLXED (03/20/2024 2:41 PM CDT) Thyroglobulin by ANTONIETA 236.1(H) 1.5 - 38.5 ng/mL 03/21/2024 5:09 PM CDT [facility] ([facility]) Comment: According to the National Academy of [...] SPECIMEN / Unknown Lab Venipuncture / Unknown 03/20/2024 2:41 PM CDT 03/20/2024 2:42 PM CDT Narrative [facility] ([facility]) - 03/21/2024 5:09 PM CDT Performed at: ??01 - [facility] [address] [place], [place] ??[id number] Lining Presser: Oral Melendez PhD, Phone: ??[phone] Yosi Bustamante MD LAB - CHEMISTRY ORD ERABLES Performing Organization Address City/[facility]/ZIP Co de Phone Number [facility] ([facility]) [address] [place] [address] * (ABNORMAL) PHOSPHORUS BLOOD (03/20/2024 2:41 PM CDT) [facility] Phosphorus 5.7(H) 2.9 - 5.1 mg/dL 03/20/2024 3:19 PM CDT [facility] LABORATORY [facility] Blood BLOOD SPECIMEN / Unknown Lab Venipuncture / Unknown 03/20/2024 2:41 PM CDT 03/20/2024 2:50 PM CDT oYsi Bustamante MD LAB - CHEMISTRY ORD ERABLES [facility] [address] [place] [address], [facility] [phone] * THYROGLOBULIN REFLEX PROFILE (03/20/2024 2:41 PM CDT) [facility] Thyroglobulin Antibody <1.0 0.0 - 0.9 IU/mL 03/21/2024 5:09 PM CDT [facility] ([facility]) Comment: Thyroglobulin Antibody measured by [employer] [place] Method[employer] It should be noted that the presence of thyroglobulin antibodies may not be pathogenic nor diagnostic, especially at very low levels. The assay software development manager has found that four percent of individuals without evidence of thyroid disease or autoimmunity will have positive TgAb levels up to 4 IU/mL. Blood BLOOD SPECIMEN / Unknown Lab Venipuncture / Unknown 03/20/2024 2:41 PM CDT 03/20/2024 2:42 PM CDT Narrative [facility] ([facility]) - 03/21/2024 5:09 PM CDT Performed at: ??01 - [facility] [address] [place], [place] ??[id number] Lining Presser: Oral Melendez PhD, Phone: ??[phone] Yosi Bustamante MD LAB - CHEMISTRY ORD ERABLES Performing Organization Address City/[facility]/ZIP Co de Phone Number [facility]) [address] [place] [address] * (ABNORMAL) TSH (03/20/2024 2:41 PM CDT) [facility] TSH 0.028(L) 0.350 - 4.940 uIU/mL 03/20/2024 3:36 PM CDT [facility] Blood BLOOD SPECIMEN / Unknown Lab Venipuncture / Unknown 03/20/2024 2:41 PM CDT 03/20/2024 2:50 PM CDT Yosi Bustamante MD LAB - CHEMISTRY ORD ERABLES [facility] [address] [place] [address], [facility] [phone] * (ABNORMAL) COMPREHENSIVE METABOLIC PANEL (03/20/2024 2:41 PM CDT) [facility] BUN 19 7 - 26 mg/dL 03/20/2024 3:19 PM CDT [facility] Creatinine 0.69 0.56 - 0.96 mg/dL 03/20/2024 3:19 PM [facility] Sodium 139 136 - 145 mmol/L 03/20/2024 3:19 PM [facility] Potassium 4.1 3.5 - 4.5 mmol/L 03/20/2024 3:19 PM [facility] Chloride 108(H) 98 - 107 mmol/L 03/20/2024 3:19 PM [facility] CO2 24 22 - 29 mmol/L 03/20/2024 3:19 PM [facility] Glucose 104 70 - 115 mg/dL 03/20/2024 3:19 PM [facility] Calcium 9.5 8.4 - 10.2 mg/dL 03/20/2024 3:19 PM [facility] Protein Total 7.7 6.0 - 8.3 g/dL 03/20/2024 3:19 PM [facility] Albumin 4.0 3.4 - 5.0 g/dL 03/20/2024 3:19 PM [facility] Bilirubin Total 0.2 0.2 - 1.2 mg/dL 03/20/2024 3:19 PM [facility] Alkaline Phosphatase 83 40 - 150 U/L 03/20/2024 3:19 PM [facility] ALT 11 5 - 55 U/L 03/20/2024 3:19 PM [facility] AST 17 5 - 34 U/L 03/20/2024 3:19 PM [facility] Anion Gap 7 6 - 16 03/20/2024 3:19 PM [facility] BUN/Creatinine Ratio 28(H) 7 - 23 03/20/2024 3:19 PM [facility] Osmolality Calculated 291 275 - 295 mOsm/kg 03/20/2024 3:19 PM [facility] Albumin/Globulin Ratio 1.1 1.1 - 2.3 03/20/2024 3:19 PM [facility] eGFR by CKD-EPI >90 >=90 mL/min/1.7 3 m2 03/20/2024 3:19 PM [facility] Blood BLOOD SPECIMEN / Unknown Lab Venipuncture / Unknown 03/20/2024 2:41 PM CDT 03/20/2024 2:50 PM CDT Remi Beckett MD LAB - CHEMISTRY ORDERABLES [facility] [address] [place] [address], [facility] [phone] * CBC WITH DIFFERENTIAL (03/20/2024 2:41 PM CDT) WBC 7.8 4.0 - 10.7 x10E9/L 03/20/2024 2:59 PM CDT [facility] RBC Count 4.93 3.90 - 5.20 x10E12/L 03/20/2024 2:59 PM T [facility] Hemoglobin 14.6 11.9 - 15.8 g/dL 03/20/2024 2:59 PM T [facility] Hematocrit 41.8 34.8 - 46.1 % 03/20/2024 2:59 PM [facility] MCV 84.8 80.0 - 98.0 fL 03/20/2024 2:59 PM T [facility] MCH 29.6 26.7 - 33.6 pg 03/20/2024 2:59 PM [facility] MCHC 34.9 31.7 - 36.3 g/dL 03/20/2024 2:59 PM T [facility] RDW-CV 13.9 11.3 - 14.8 % 03/20/2024 2:59 PM [facility] Platelet Count 297 150 - 420 x10E9/L 03/20/2024 2:59 PM T [facility] MPV 9.3 7.8 - 11.4 fL 03/20/2024 2:59 PM [facility] Neutrophil % 67.8 41.0 - 74.0 % 03/20/2024 2:59 PM T [facility] Lymphocyte % 20.7 17.0 - 47.0 % 03/20/2024 2:59 PM T [facility] Monocyte % 9.1 3.0 - 11.0 % 03/20/2024 2:59 PM CDT [facility] Eosinophil % 1.5 0.0 - 7.0 % 03/20/2024 2:59 PM CDT [facility] Basophil % 0.6 0.0 - 1.6 % 03/20/2024 2:59 PM CDT [facility] Immature Granulocytes % 0.3 0.0 - 1.0 % 03/20/2024 2:59 PM CDT [facility] Neutrophil Absolute 5.31 1.60 - 7.50 x10E9/L 03/20/2024 2:59 PM T [facility] Lymphocyte Absolute 1.62 1.00 - 4.40 x10E9/L 03/20/2024 2:59 PM T [facility] Monocyte Absolute 0.71 0.15 - 1.00 x10E9/L 03/20/2024 2:59 PM T [facility] Eosinophil Absolute 0.12 0.00 - 0.60 x10E9/L 03/20/2024 2:59 PM CDT [facility] Basophil Absolute 0.05 0.00 - 0.13 x10E9/L 03/20/2024 2:59 PM T [facility] Blood BLOOD SPECIMEN / Unknown Lab Venipuncture / Unknown 03/20/2024 2:41 PM CDT 03/20/2024 2:50 PM CDT Remi Beckett MD LAB - HEMATOLOGY ORDERABLES Performing Organization Address [facility] Co de Phone Number [facility] [address] [place] [phone], [facility] [phone] documented in this encounter Visit Diagnoses Diagnosis Postoperative hypothyroidism Postsurgical hypothyroidism Thyroid cancer (HCC) Malignant neoplasm of thyroid gland Hypocalcemia Other hypoparathyroidism (HCC) Malignant tumor of thyroid gland (HCC) Malignant neoplasm of thyroid gland Cancer, metastatic to bone (HCC) Secondary malignant neoplasm of bone and bone marrow Papillary carcinoma of thyroid (HCC) Malignant neoplasm of thyroid gland documented in this encounter Care Teams Postpartum Nurse Relationship Specialty Start Date End Date Yaya Villatoro MD [address] [place] [phone] PCP - General Internal Medicine 05/04/23 Joseph Manzanares MD [address] [place] [phone] Internal Medicine 04/21/23 documented as of this encounter
--- OUTSIDE RECORDS SUMMARY | 2024-07-23 07:07 | XMS_ITS | Encounter Summary ---
Author Organization [facility] Health Address [address] [facility] [place] [address] Care Team Providers Care Tool Supervisor Name Role Phone Joseph Manzanares MD Unavailable Yaya Villatoro MD Primary Care Provider +1- [phone] Reason for Referral * Radiology Services (Routine) - Closed Specialty Diagnoses / Procedures Referred By Yuan t Referred To Contact Hematology-Oncology Diagnoses Cancer, metastatic to bone (HCC) Procedures NM Bone Scan Whole Body Remi Daniels MD [address] [place] [address] Referral ID Status Reason Start Date Expiration Date Visits Re quested Visits Authorized [id number] Closed 05/29/2024 05/29/2025 1 1 * Radiology Services (Routine) - Closed Specialty Diagnoses / Procedures Referred By Contac julienne Referred To Contact Hematology-Oncology Diagnoses Papillary carcinoma of thyroid (HCC) Procedures CT Neck Soft Tissue W Remi Jefferson MD [address] [place] [address] Referral ID Status Reason Start Date Expiration Date Visits Re quested Visits Authorized [id number] Closed 05/31/2024 05/31/2025 1 1 * Radiology Services (Routine) - Closed Specialty Diagnoses / Procedures Referred By Contac t Referred To Contact Hematology-Oncology Diagnoses Papillary carcinoma of thyroid (HCC) Procedures CT Chest Abdomen Pelvis W Cont Remi Daniels MD [address] [place] [address] Referral ID Status Reason Start Date Expiration Date Visits Re quested Visits Authorized [id number] Closed 05/31/2024 05/31/2025 1 1 Reason for Visit * Reason Comments Follow-up Follow up * Auth/Cert (Routine) Specialty Diagnoses / Procedures Referred By Contac t Referred To Contact Referral ID Status Reason Start Date Expiration Date Visits Re quested Visits Authorized [id number] 1 1 Encounter Details Date Type Department Care Team (Latest Contact Info) Description 04/17/2024 3:20 PM CDT Office Visit [facility] - Hematology/Oncology [address] [place] [phone] Remi Daniels MD [address] [place] [address] Papillary carcinoma of thyroid (HCC) (Primary Dx); Cancer, metastatic to bone (HCC); Mucositis due to antineoplastic [...] Date Recorded PHQ2 TOTAL SCORE 1 11/25/2022 [facility] of Occupat ional Health - Occupational Stress [...] Sign Reading Time Taken Comments Blood Pressure 143/73 04/17/2024 3:16 PM CDT Pulse 89 04/17/2024 3:16 PM CDT Temperature 36.8 ??C (98.3 ??F) 04/17/2024 3:16 PM CD T Respiratory Rate 20 04/17/2024 3:16 PM CDT Oxygen Saturation 98% 04/17/2024 3:16 PM CDT Inhaled Oxygen Concentration - - Weight 53.1 kg (117 lb) 04/17/2024 3:16 PM CDT Height - - Body Mass Index 21.4 03/20/2024 2:39 PM CDT documented in this [...] of this encounter Progress Notes * Remi Daniels MD - 04/17/2024 3:20 PM CDT HEMATOLOGY-ONCOLOGY CLINIC NOTE DATE OF VISIT: 04/17/2024 REASON FOR VISIT / CHIEF COMPLAINT: Thyroid cancer SUBJECTIVE: DIAGNOSIS: Papillary carcinoma of thyroid, stage III (pT4a pN1b cM0), diagnosed 08/19/2020, with locally recurrent/residual disease identified 02/05/2022, and distant recurrence in spine diagnosed 10/02/2022, [id number], no targetable mutations TREATMENT HISTORY: - Total [...] free T4 1.4. --10/2023: Discussed with her route sales trainee Dr. Bustamante. She is not a good candidate for repeatRAI, which also does not have good bone/SHEEP SORTER penetration. Hence decided to initiate lenvatinib 24 [...] presents to the clinic today for follow-up. Mucositis is worse, she is weaker and unable to swallow properly. Appetite is poor and she is losing weight. Ambulating reasonably well with the help of [...] packs/day: 0.25 Average packs/day: 0.3 packs/day for 50.7 years (12.7 ttl pk-yrs) Types: Cigarettes Start [...] naloxone HCl (Narcan) 4 MG/0.1ML nasal spray [place] 1 (one) spray into the nose as [...] >= 55 years) - Signed by Remi Daniels MD on 10/26/2023 Oncology History Papillary carcinoma [...] --04/17/2024: Lenvatinib held for grade 3 mucositis. Active Treatment Days for Brisa Gonzalez (until 04/18/2024) There are no remaining days before 04/18/2024. REVIEW OF SYSTEMS: She had chronic hoarseness, difficult swallowing (after RT), left shoulder pain (chronic), left hippain and decrease in strength in the right arm due to metastasis disease. A 10 point review of systems was performed and negative except as listed in the history above. OBJECTIVE: PHYSICAL EXAM: Vitals: BP 143/73 Pulse 89 Temp 98.3 ??F (36.8 ??C) Resp 20 Wt 53.1 kg (117 lb) SpO2 98% Wt Readings from Last 3 Encounters: 04/17/24 53.1 kg (117 lb) 03/20/24 55.2 kg (121 lb 12.8 oz) 03/07/24 55.5 kg (122 lb 6.4 oz) General appearance: Comfortable, not in acute [...] of disease LABS: Recent Labs Component Name 04/17/24 1507 03/20/24 1441 03/07/24 1253 10/21/23 1450 10/07/22 0012 10/05/22 2234 10/05/22 0436 WBC 9.5 7.8 8.9 - 8.1 8.9 9.3 RBC 5.28* 4.93 5.21* - 3.03* 3.18* 3.32* HGB 15.2 14.6 15.0 - 9.2* 9.7* 10.2* HCT 44.6 41.8 44.5 - 27.3* 29.2* 30.5* MCV 84.5 84.8 85.4 - 90.1 91.8 91.9 MCHC 34.1 34.9 33.7 - 33.7 33.2 33.4 PLTCOUNT 279 297 265 - 263 239 239 NEUTPCT 73.6 67.8 74.6* - 59.0 67.4 68.2 LYMPHPCT 16.9* 20.7 16.8* - - - - NEUTABS - - - - 4.75 6.03 6.32 LYMPHABS 1.61 1.62 1.49 - - - - BASOABS 0.04 0.05 0.03 - - - - - = values in this interval not displayed. Recent Labs Component Name 04/17/24 1507 03/20/24 1441 03/07/24 1253 01/14/24 1113 12/10/23 1054 12/24/22 1059 10/07/22 0012 10/05/22 2234 10/05/22 0436 POTASSIUM 4.2 4.1 4.0 - 4.3 - 3.8 3.7 3.7 CO2 23 24 24 - 21* - 25 25 25 BUN 25 19 28* - 30* - 15 19 10 CREATININE 0.73 0.69 0.78 - 0.77 - 0.56 0.53* 0.59 EGFR >90 >90 84* - 86* - >90 >90 >90 GLUCOSE 95 104 91 - 101 - 92 118* 90 CALCIUM 9.4 9.5 9.4 - 9.3 - 9.0 8.6 8.3* MAGNESIUM - - - - - - 1.7 1.6 1.7 PHOS - 5.7* 5.2* - 4.8 - 5.3* 4.6 3.6 ALT 9 11 12 - 17 - - - - AST 16 17 14 - 17 - - - - ALKPHOS 80 83 85 - 83 - - - - - = values [...] 20 mg daily in 02/2024 due to mucositis. She presents today for follow-up. # Papillary [...] OA PLAN: - Labs reviewed (CBC, CMP). Hold lenvatinib for 2-3 weeks and resume 14 mg daily if improved to grade 1. Repeat scans (CT CAP + neck with contrast and bone scan) 05/2024. - Repeat radioactive iodine therapy and denosumab per Endocrinology. - RTC in 4 weeks with repeat labs (CBC and CMP ordered). She will call us with questions/concerns in [...] to proceed with treatment as scheduled. Remi Daniels MD Warehouse Pickerdivision chief Department of Hematology & Medical Oncology [facility]: documented in this encounter Miscellaneous Notes * Addendum Note - Remi Daniels MD - 04/19/2024 12:36 PM CDTAddended by: REMI DANIELS on: 04/19/2024 12:36 PM Modules accepted: Orders documented in this encounter Plan of Treatment Upcoming Encounters Date Type Department Care Team (Late st Contact Info) Description 07/25/2024 10:00 AM PUBLIC RELATIONS SENIOR ASSOCIATE Office Visit [facility] - Endocrinology [address] [place] [phone] Yosi Bustamante MD [address] [place] [address] 2L [place] [address] 07/26/2024 10:00 AM PUBLIC RELATIONS SENIOR ASSOCIATE Appointment [facility] [address] [place] [phone] Neri Delgado MD [address] [place] [address] 07/26/2024 10:00 AM PUBLIC RELATIONS SENIOR ASSOCIATE Office Visit [facility] - ENT [address] [place] [phone] Myra Farmer, CHIEF ENGINEER'S HELPER [address] [place] [address] 2L [place] [phone] 07/26/2024 11:15 AM PUBLIC RELATIONS SENIOR ASSOCIATE Office Visit [facility] - ENT [address] [place] [phone] Neri Delgado MD [address] [place] [address] 08/02/2024 2:20 PM PUBLIC RELATIONS SENIOR ASSOCIATE Appointment [facility] [address] [place] [address] 08/02/2024 3:00 PM PUBLIC RELATIONS SENIOR ASSOCIATE Office Visit [facility] - Hematology/Oncology [address] [place] [phone] Remi Daniels MD [address] [place] [phone] 08/18/2024 1:45 PM PUBLIC RELATIONS SENIOR ASSOCIATE Office Visit [facility] - ENT [address] [place] [phone] Neri Delgado MD [address] [place] [address] documented as of this encounter Results * NM Bone Scan Whole Body (07/07/2024 1:44 PM PUBLIC RELATIONS SENIOR ASSOCIATE) Anatomical Region Laterality Modality Abdomen Nuclear Medicine 07/07/2024 10:5 1 AM PUBLIC RELATIONS SENIOR ASSOCIATE Impressions 07/07/2024 3:49 PM PUBLIC RELATIONS SENIOR ASSOCIATE IMPRESSION: 1. Intense radiotracer uptake within left pelvis, consistent with severe osteoarthritis seen in the prior PET/CT from 02/25/2024. 2. Moderate radiotracer uptake within lower neck anteriorly which may relate to post treatment changes, follow-up is recommended. > Dictated by Daphne Reis MD (Plc Engineer) 07/07/2024 10:51 AM Tiesha Mckeon DO have personally reviewed and interpreted this examination/study. > Interpreting Provider: Tiesha Sy DO on 07/07/2024 3:49 PM Narrative 07/07/2024 3:49 PM PUBLIC RELATIONS SENIOR ASSOCIATE PROCEDURE: ??NM BONE SCAN WHOLE BODY DATE/TIME OF EXAM: ??07/07/2024 10:45 AM CLINICAL INFORMATION: None relevant/not provided if blank. Indication: C79.51: Cancer, metastatic to bone (HCC) HISTORY: A 63-year-old female with metastatic papillary thyroid carcinoma diagnosed in 2020 status post total thyroidectomy, cervical and thoracic spine metastasis status post radiotherapy. Currently on immunotherapy. TECHNIQUE: The patient was injected with 24.9 mCi of vfgfxifxat22-s MDP IV in the right antecubital fossa. [...] hip joint. There are multiple sites of aufo-pl-iniqwpdg increased uptake in the bilateral shoulders and [...] patient was injected with 24.9 mCi of -z MDPIV in the right antecubital fossa. Anterior [...] hip joint. There are multiple sites of mbmk-jm-qwyreytb increased uptake in the bilateral shoulders and spine consistent with degenerative disease. IMPRESSION: 1. Intense radiotracer uptake within left pelvis, consistent with severe osteoarthritis seen in the prior PET/CT from 02/25/2024. 2. Moderate radiotracer uptake within lower neck anteriorly which may relate to post treatment changes, follow-up is recommended. > Dictated by Daphne Reis MD (Plc Engineer) 07/07/2024 10:51AM Tiesha Mckeon DO have personally reviewed and interpreted this examination/study. > Interpreting Provider: Tiesha yS DO on 07/07/2024 3:49 PM Remi Daniels MD NM ORDERABLES * CT Neck Soft Tissue W Cont (07/07/2024 12:11 PM PUBLIC RELATIONS SENIOR ASSOCIATE) Anatomical Region Laterality Modality Head Computed Tomogra phy 07/09/2024 9:47 AM PUBLIC RELATIONS SENIOR ASSOCIATE Impressions 07/09/2024 10:08 AM PUBLIC RELATIONS SENIOR ASSOCIATE IMPRESSION: 1. A 9 x 7 x [...] 07/09/2024 10:08 AM Narrative 07/09/2024 10:08 AM PUBLIC RELATIONS SENIOR ASSOCIATE PROCEDURE: ??CT NECK SOFT TISSUE W CONT, DATE/TIME OF EXAM: ??07/07/2024 12:12 PM, LOCATION ??[facility] INDICATION: C73: Papillary carcinoma of [...] CONT, DATE/TIME OF EXAM: :12 PM, LOCATION [facility] INDICATION: C73: Papillary carcinoma of [...] Qiu MD on 07/09/2024 10:08 AM Remi Daniels MD CT ORDERABLES * CT Chest Abdomen Pelvis W Cont (07/07/2024 12:08 PM PUBLIC RELATIONS SENIOR ASSOCIATE) Anatomical Region Laterality Modality Chest, Abdomen, Pelvis Computed Tomography 07/07/2024 1:01 PM PUBLIC RELATIONS SENIOR ASSOCIATE Impressions 07/07/2024 4:00 PM PUBLIC RELATIONS SENIOR ASSOCIATE Impression: 1.Changes of total thyroidectomy. 2.Minimal enhancement around the gallbladder fundus, this can be seen in adenomyomatosis. Right upper quadrant ultrasound may be obtained for further evaluation if clinically indicated. 3.Partially imaged osseous changes in the lower cervical and upper thoracic spine at site of treated metastasis are better evaluated on MRI from 11/23/2023. > Dictated by Donald NATH, [facility] ??(residential program coordinator). IVaishali MD have personally reviewed and interpreted this examination/study. > Interpreting Provider: Vaishali Herrera MD on 07/07/2024 4:00 PM Narrative 07/07/2024 4:00 PM PUBLIC RELATIONS SENIOR ASSOCIATE PROCEDURE: ??CT CHEST ABDOMEN PELVIS W CONT, DATE/TIME OF EXAM: ??07/07/2024 12:09 PM, LOCATION ??[facility] INDICATION: C73: Papillary carcinoma of [...] changes of the left hip joint with efxo-aq-byyt contact. Partially imaged posterior spinal fusion hardware. Bone changes in the left aspect of partially imaged C7 at the site of treated metastasis. Soft tissues: Normal. Procedure Note Lorena Herrera MD - 07/07/2024 PROCEDURE: CT CHEST ABDOMEN PELVIS W CONT, DATE/TIME OF EXAM: 07/07/2024 12:09 PM, LOCATION [facility] INDICATION: C73: Papillary carcinoma of [...] osteoarthritic changes ofthe left hip joint with zvzj-qf-ggzq contact. Partially imaged posteriorspinal fusion hardware. Bone [...] from 11/23/2023. > Dictated by Donald NATH, [facility] (residential program coordinator). IVaishali MD have personally reviewed and interpreted this examination/study. > Interpreting Provider: Vaishali Herrera MD on 07/07/2024 4:00 PM Remi Daniels MD CT ORDERABLES documented in this encounter Visit Diagnoses Diagnosis Papillary carcinoma of thyroid (HCC)- Primary Malignant neoplasm of thyroid gland Cancer, metastatic to bone (HCC) Secondary malignant neoplasm of bone and bone marrow Mucositis due to antineoplastic therapy Mucositis (ulcerative) due to antineoplastic therapy Encounter for antineoplastic chemotherapy Cancer, metastatic to bone (HCC) Secondary malignant neoplasm of bone and bone marrow Papillary carcinoma of thyroid (HCC) Malignant neoplasm of thyroid gland Papillary carcinoma of thyroid (HCC) Malignant neoplasm of thyroid gland documented in this encounter Care Teams Tool Supervisor Relationship Specialty Start Date End Date Yaya Villatoro MD [address] [phone] PCP - General Internal Medicine 05/04/23 Joseph Manzanares MD [address] [place] [phone] Internal Medicine 04/21/23 documented as of this encounter
--- OUTSIDE RECORDS SUMMARY | 2024-07-23 07:07 | XMS_ITS | Encounter Summary ---
Author Organization [facility] Health Address [address] [facility] [place] [address] Care Team Providers Care Engraver Hand Soft Metals Name Role Phone Joseph Manzanares MD Unavailable Yaya Villatoro MD Primary Care Provider +1- [phone] Reason for Visit * Reason Onset Date Comments Appointment 04/14/2024 See note. Encounter Details Date Type Department Care Team (Late Contact Info) Description 04/14/2024 Telephone [facility] - Hematology/Oncology [address] [place] [address] Remi Beckett MD [address] [place] [address] Appointment (See note. ) Social History Tobacco Use Types Packs/Day Years [...] Date Recorded PHQ2 TOTAL SCORE 1 11/25/2022 [facility] of Occupat ional Health - Occupational [...] encounter Miscellaneous Notes * Telephone Encounter - Linda Chandlerrice - 04/14/2024 3:01 PM CDT Called to confirm appt with Dr. Beckett. Patient did not answer and I could not leave a VM, cause it was full. documented in this encounter Plan of Treatment Upcoming Encounters Date Type Department Care Team (Late st Contact Info) Description 07/25/2024 10:00 AM WORK DISTRIBUTOR Office Visit [facility] - Endocrinology [address] [place] [phone] Yosi Bustamante MD [address] [place] [address] 2L [place] [address] 07/26/2024 10:00 AM WORK DISTRIBUTOR Appointment [facility] [address] [place] [phone] Neri Delgado MD [address] [place] [address] 07/26/2024 10:00 AM WORK DISTRIBUTOR Office Visit [facility] - ENT [address] [place] [phone] Myra Farmer, SENIOR BUDGET ANALYST [address] [place] [address] 2L [place] [address] 07/26/2024 11:15 AM WORK DISTRIBUTOR Office Visit [facility] - ENT [address] [place] [phone] Neri Delgado MD [address] [place] [address] 08/02/2024 2:20 PM WORK DISTRIBUTOR Appointment [facility] [address] [place] [address] 08/02/2024 3:00 PM WORK DISTRIBUTOR Office Visit [facility] - Hematology/Oncology [address] [place] [phone] Remi Beckett MD [address] [place] [phone] 08/18/2024 1:45 PM WORK DISTRIBUTOR Office Visit [facility] - ENT [address] [place] [phone] Neri Delgado MD [address] [place] [address] documented as of this encounter Visit Diagnoses Not on filedocumented in this encounter Care Teams Engraver Hand Soft Metals Relationship Specialty Start Date End Date Yaya Villatoro MD [address] [place] [phone] PCP - General Internal Medicine 05/04/23 Joseph Manzanares MD [address] [place] [phone] Internal Medicine 04/21/23 documented as of this encounter
--- OUTSIDE RECORDS SUMMARY | 2024-07-23 07:07 | XMS_ITS | Encounter Summary ---
Author Organization [facility] Health Address [address] [place] [address] Care Team Providers Care Gold Assayer Name Role Phone Joseph Manzanares MD Unavailable Yaya Villatoro MD Primary Care Provider +1- [phone] Encounter Details Date Type Department Care Team (Late st Contact Info) Description 03/01/2024 Orders Only [facility] - Hematology/Oncology [address] [place] [address] Remi Beckett MD [address] [place] [phone] Papillary carcinoma of thyroid (HCC) Social History Tobacco Use Types Packs/Day [...] Date Recorded PHQ2 TOTAL SCORE 1 11/25/2022 [facility] of Occupat ional Health - Occupational [...] st Contact Info) Description 07/25/2024 10:00 AM ECONOMIC DEVELOPMENT DIRECTOR Office Visit [facility] - Endocrinology [address] [place] [phone] Yosi Bustamante MD [address] [place] [address] 2L [place] [address] 07/26/2024 10:00 AM ECONOMIC DEVELOPMENT DIRECTOR Appointment [facility] [address] [place] [address] Neri Delgado MD [address] [place] [address] 07/26/2024 10:00 AM ECONOMIC DEVELOPMENT DIRECTOR Office Visit [facility] - ENT [address] [place] [phone] Myra Farmer, INSPECTOR PLUMBING [address] [place] [address] 2L [place] [address] 07/26/2024 11:15 AM ECONOMIC DEVELOPMENT DIRECTOR Office Visit [facility] - ENT [address] [place] [phone] Neri Delgado MD [address] [place] [address] 08/02/2024 2:20 PM ECONOMIC DEVELOPMENT DIRECTOR Appointment [facility] [address] [place] [address] 08/02/2024 3:00 PM ECONOMIC DEVELOPMENT DIRECTOR Office Visit [facility] - Hematology/Oncology [address] [place] [phone] Remi Beckett MD [address] [place] [phone] 08/18/2024 1:45 PM ECONOMIC DEVELOPMENT DIRECTOR Office Visit [facility] - ENT [address] [place] [phone] Neri Delgado MD [address] [place] [phone] documented as of this encounter Visit Diagnoses Diagnosis Papillary carcinoma of thyroid (HCC) Malignant neoplasm of thyroid gland documented in this encounter Care Teams Gold Assayer Relationship Specialty Start Date End Date Yaya Villatoro MD [address] [phone] PCP - General Internal Medicine 05/04/23 Joseph Manzanares MD [facility] [place] [address] Internal Medicine 04/21/23 documented as of this encounter
--- OUTSIDE RECORDS SUMMARY | 2024-07-23 07:07 | XMS_ITS | Encounter Summary ---
Author Organization [facility] Health Address [address] [facility] [place] [address] Care Team Providers Care Prom Burn Off Operator Name Role Phone Joseph Manzanares MD Unavailable Yaya Villatoro MD Primary Care Provider +1- [phone] Encounter Details Date Type Department Care Team (Latest Contact Info) Description 01/31/2024 Travel Social History Tobacco Use Types Packs/Day [...] st Contact Info) Description 07/25/2024 10:00 AM PATIENT LIAISON [facility] - Endocrinology [address] [place] [phone] Yosi Bustamante MD [address] [place] [address] 2L [place] [address] 07/26/2024 10:00 AM PATIENT LIAISON Appointment [facility] [address] [place] [phone] Neri Delgado MD [address] [place] [address] 07/26/2024 10:00 AM PATIENT LIAISON Office Visit [facility] - ENT [address] [place] [phone] Myra Farmer, TOWEL SORTER [address] [place] [address] 2L [place] [phone] 07/26/2024 11:15 AM PATIENT LIAISON Office Visit [facility] - ENT [address] [place] [phone] Neri Delgado MD [address] [place] [address] 08/02/2024 2:20 PM PATIENT LIAISON Appointment [facility] [address] [place] [address] 08/02/2024 3:00 PM PATIENT LIAISON Office Visit [facility] - Hematology/Oncology [address] [place] [phone] Remi Beckett MD [address] [place] [phone] 08/18/2024 1:45 PM PATIENT LIAISON Office Visit [facility] - ENT [address] [place] [phone] Neri Delgado MD [address] [place] [address] documented as of this encounter Visit Diagnoses Not on filedocumented in this encounter Care Teams Prom Burn Off Operator Relationship Specialty Start Date End Date Yaya Villatoro MD [address] [phone] PCP - General Internal Medicine 05/04/23 Joseph Manzanares MD [address] [place] [phone] Internal Medicine 04/21/23 documented as of this encounter
--- OUTSIDE RECORDS SUMMARY | 2024-07-23 07:07 | XMS_ITS | Encounter Summary ---
Author Organization [facility] Health Address [address] [place] [address] Care Team Providers Care Meat Lugger Name Role Phone Joseph Manzanares MD Unavailable Yaya Villatoro MD Primary Care Provider [phone]- [phone] Encounter Details Date Type Department Care Team (Latest Contact Info) Description 03/20/2024 Travel Social History Tobacco Use Types Packs/Day [...] Date Recorded PHQ2 TOTAL SCORE 1 11/25/2022 [facility] of Occupat ional Health - Occupational Stress [...] st Contact Info) Description 07/25/2024 10:00 AM HYDROGRAPHY TEACHER [facility] Endocrinology [address] [place] [phone] Yosi Bustamante MD [address] [place] [address] 2L [place] [address] 07/26/2024 10:00 AM HYDROGRAPHY TEACHER Appointment [facility] DIAGNOSTIC RAD [address] [place] [phone] Neri Delgado MD [address] [place] [address] 07/26/2024 10:00 AM HYDROGRAPHY TEACHER Office Visit [facility] - ENT [address] [place] [phone] Myra Farmer, CERTIFIED SHORTHAND REPORTER [address] [place] [address] 2L [place] [phone] 07/26/2024 11:15 AM HYDROGRAPHY TEACHER Office Visit [facility] - ENT [address] [place] [phone] Neri Delgado MD [address] [place] [address] 08/02/2024 2:20 PM HYDROGRAPHY TEACHER Appointment [facility] [address] [place] [address] 08/02/2024 3:00 PM HYDROGRAPHY TEACHER Office Visit [facility] - Hematology/Oncology [address] [place] [phone] Remi Beckett MD [address] [place] [phone] 08/18/2024 1:45 PM HYDROGRAPHY TEACHER Office Visit [facility] - ENT [address] [place] [address] Neri Delgado MD [address] [place] [address] documented as of this encounter Visit Diagnoses Not on filedocumented in this encounter Care Teams Meat Lugger Relationship Specialty Start Date End Date Yaya Villatoro MD [address] [phone] PCP - General Internal Medicine 05/04/23 Joseph Manzanares MD [address] [place] [phone] Internal Medicine 04/21/23 documented as of this encounter
--- OUTSIDE RECORDS SUMMARY | 2024-07-23 07:07 | XMS_ITS | Encounter Summary ---
Author Organization [facility] Health Address [address] [place] [address] Care Team Providers Care Tubing Supervisor Name Role Phone Joseph Manzanares MD Unavailable Yaya Villatoro MD Primary Care Provider [phone]- [phone] Reason for Visit * Reason Onset Date Comments Nutrition Consult 03/22/2024 Encounter Details Date Type Department Care Team (Late st Contact Info) Description 03/22/2024 Telephone [facility] ENT [facility] [place] [phone] Aimee Santiago, RD/LD Nutrition Consult Social History Tobacco Use Types Packs/Day Years [...] Date Recorded PHQ2 TOTAL SCORE 1 11/25/2022 [facility] of Occupat ional Health - Occupational [...] as of this encounter Progress Notes * Aimee Santiago RD/ERLIN - 03/22/2024 9:26 AM CDT Nutrition Assessment Pertinent Medical hx: GERD, HLD Diagnosis: Site: Thyroid Histology: PTC Stage: [id number] AJCC IVb Details: Positive margins, LVI +, PNI + (including Right RLN), nodes, JADON + Treatment History: - 08/19/20: total thyroidectomy requiring sacrifice of Right RLN/tracheal resection/reanastamosis, bilateral lateral and central neck dissection (Comer) - 02/05/2022: Excision of right central neck mass- Palpable tumor approximately 1 cm in size overlying the right thyroid ala and cricothyroid membrane excised including overlying strap musculature. (Massa) - 03/19/21: WARD - 09/21/22 Completed 2400 Gy to the cervical spine (Arnaldo) - 10/02/2022: C2-T2 fusion and decompression C3-C7 and resection extramedullary spine tumor (Dalia) - Early 01/2024: started on lenvatinib 24 mg once daily, was stopped 01/14/2024 - 02/07/2024: Lenvatinib 20 mg every day resumed (reduced dose from 24 mg QD due to mucositis) Comments: Per hemonc RAMPMAN note 03/13- pt was off Lenvatinib x1 week d/t being out of the medication; symptoms completely resolved, including swallowing problems and pain, while being off of it (felt backto baseline); appetite was doing well. Per hemonc MD note 03/20- mucositis improved and tolerating lenvatinib [address] attempted to call pt again to complete nutrition assessment but no answer. Unable to leave VM d/t message box being full. Wt has been stable x2 weeks. RD remains available PRN. GRACE Chacon, BRITTNEY, ERLIN documented in this encounter Plan of Treatment Upcoming Encounters Date Type Department Care Team (Late st Contact Info) Description 07/25/2024 10:00 AM DINING SERVICES DIRECTOR Office Visit [facility] - Endocrinology [address] [place] [phone] Yosi Bustamante MD [address] [place] [address] 2L [place] [address] 07/26/2024 10:00 AM DINING SERVICES DIRECTOR Appointment [facility] DIAGNOSTIC RAD [address] [place] [address] Neri Delgado MD [address] [place] [address] 07/26/2024 10:00 AM DINING SERVICES DIRECTOR Office Visit [facility] - ENT [address] [place] [phone] Myra Farmer, CHIEF DISPATCHER [address] [place] [address] 2L [place] [address] 07/26/2024 11:15 AM DINING SERVICES DIRECTOR Office Visit [facility] - ENT [address] [place] [phone] Neri Delgado MD [address] [place] [address] 08/02/2024 2:20 PM DINING SERVICES DIRECTOR Appointment [facility] [address] [place] [address] 08/02/2024 3:00 PM DINING SERVICES DIRECTOR Office Visit [facility] - Hematology/Oncology [address] [place] [phone] Remi Beckett MD [address] [place] [phone] 08/18/2024 1:45 PM DINING SERVICES DIRECTOR Office Visit [facility] - ENT [address] [place] [address] Neri Delgado MD [address] [place] [address] documented as of this encounter Visit Diagnoses Not on filedocumented in this encounter Care Teams Tubing Supervisor Relationship Specialty Start Date End Date Yaya Villatoro MD [address] [phone] PCP - General Internal Medicine 05/04/23 Joseph Manzanares MD [address] [place] [phone] Internal Medicine 04/21/23 documented as of this encounter
--- OUTSIDE RECORDS SUMMARY | 2024-07-23 07:07 | XMS_ITS | Encounter Summary ---
Author Organization [facility] Health Address [address] [place] [address] Care Team Providers Care Commercial Art Instructor Name Role Phone Joseph Manzanares MD Unavailable Yaya Villatoro MD Primary Care Provider [phone]- [phone] Encounter Details Date Type Department Care Team (Late st Contact Info) Description 02/25/2024 Orders Only [facility] - [facility]NT [address] [place] [phone] Neri Delgado MD [address] [place] [address] Oropharyngeal dysphagia ; Chronic pain after cancer treatment Social History Tobacco Use Types Packs/Day Years [...] Date Recorded PHQ2 TOTAL SCORE 1 11/25/2022 [facility] of Occupat ional Health - Occupational Stress [...] st Contact Info) Description 07/25/2024 10:00 AM COMMUNITY ASSISTANT Office Visit [facility] - Endocrinology [address] [place] [phone] Yosi Bustamante MD [address] [place] [address] 2L [place] [address] 07/26/2024 10:00 AM COMMUNITY ASSISTANT Appointment [facility] DIAGNOSTIC RAD [address] [place] [address] Neri Delgado MD [address] [place] [address] 07/26/2024 10:00 AM COMMUNITY ASSISTANT Office Visit [facility] - ENT [address] [place] [phone] Myra Farmer, SUPERVISOR ENROBING [address] [place] [address] 2L [place] [address] 07/26/2024 11:15 AM COMMUNITY ASSISTANT Office Visit [facility] - ENT [address] [place] [phone] Neri Delgado MD [address] [place] [address] 08/02/2024 2:20 PM COMMUNITY ASSISTANT Appointment [facility] [address] [place] [address] 08/02/2024 3:00 PM COMMUNITY ASSISTANT Office Visit [facility] - Hematology/Oncology [address] [place] [address] Remi Beckett MD [address] [place] [address] 08/18/2024 1:45 PM COMMUNITY ASSISTANT Office Visit [facility] - ENT [address] [place] [address] Neri Delgado MD [address] [place] [address] documented as of this encounter Visit Diagnoses Diagnosis Oropharyngeal dysphagia- Primary Dysphagia, oropharyngeal phase Chronic pain after cancer treatment documented in this encounter Care Teams Commercial Art Instructor Relationship Specialty Start Date End Date Yaya Villatoro MD [address] [phone] PCP - General Internal Medicine 05/04/23 Joseph Manzanares MD [address] [place] [address] Internal Medicine 04/21/23 documented as of this encounter
--- OUTSIDE RECORDS SUMMARY | 2024-07-23 07:07 | XMS_ITS | Encounter Summary ---
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 Cancer, metastatic to bone (HCC) Procedures PET CT WHOLE BODY Marcio Mcintosh MD [address] [place] [address] [facility] [address] [place] [phone] Referral ID Status Reason Start Date Expiration Date Visits Re quested Visits Authorized [id number] Closed 02/25/2024 05/25/2024 1 1 Reason for Visit * Radiology Services (Routine) - Closed Specialty Diagnoses / Procedures Referred By Contac t Referred To Contact Positron Emission Tomography Diagnoses Thyroid cancer (HCC) Metastasis to bone (HCC) Papillary carcinoma of thyroid (HCC) 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 Cancer, metastatic to bone (HCC) Procedures PET CT WHOLE BODY Marcio Mcintosh MD [address] [place] [address] [facility] [address] [place] [address] Referral ID Status Reason Start Date Expiration Date Visits Re quested Visits Authorized [id number] Closed 02/25/2024 05/25/2024 1 1 Encounter Details Date Type Department Care Team (Latest Contact Info) Description 02/25/2024 9:45 AM CDT - 02/25/2024 10:40 AM CDT Hospital Encounter [facility] PET [address] [place] [phone] Marcio Mcintosh MD [address] [place] [address] Discharge Disposition: Home or Self Care Social [...] Date Recorded PHQ2 TOTAL SCORE 1 11/25/2022 [facility] of Occupat ional Health - [...] naloxone HCl (Narcan) 4 MG/0.1ML nasal spray Isabella 1 (one) spray into the nose as [...] 180 days 1 mL 2 01/24/2024 4 hydrOXYzine HCl (Atarax) 10 MG tablet Take 1 (one) tablet by mouth 3 times daily 02/07/2024 4 lenvatinib (Lenvima) 2 x 10 MG & 4 MG capsuleIndications:Papil rajinder carcinoma of thyroid (HCC) Take 20 mg by mouth once daily Take two 10 mg capsules (20 mg total) by mouth once a day. 30 capsule 3 02/07/2024 4 documented as of this encounter Plan of Treatment Upcoming Encounters Date Type Department Care Team (Late st Contact Info) Description 07/25/2024 10:00 AM TRANSIT POLICE OFFICER Office Visit [facility] - Endocrinology [address] [place] [address], [facility] [place] [phone] Yosi Bustamante MD [address] [place] [address] [place] [address] 07/26/2024 10:00 AM TRANSIT POLICE OFFICER Appointment [facility] DIAGNOSTIC RAD [address] [place] [address] Neri Delgado MD [address] [place] [address] 07/26/2024 10:00 AM TRANSIT POLICE OFFICER Office Visit [facility] - ENT [address] [place] [phone] Myra Farmer, KENO ATTENDANT [address] [place] [address] [place] [phone] 07/26/2024 11:15 AM TRANSIT POLICE OFFICER Office Visit [facility] - ENT [address] [place] [phone] Neri Delgado MD [address] [place] [phone] 08/02/2024 2:20 PM TRANSIT POLICE OFFICER Appointment [facility] [address] [place] [address] 08/02/2024 3:00 PM TRANSIT POLICE OFFICER Office Visit [facility] - Hematology/Oncology [address] [place] [phone] Remi Beckett MD [address] [place] [phone] 08/18/2024 1:45 PM TRANSIT POLICE OFFICER Office Visit [facility] - ENT [address] [place] [phone] Neri Delgado MD [address] [place] [phone] documented as of this encounter Procedures Procedure Name Priority Date/Time Associated Diagnosis Comments PET CT WHOLE BODY Routine 02/25/2024 11: 50 AM CDT Thyroid cancer (CMS/HCC) Metastasis to bone (HCC) Papillary carcinoma of thyroid (HCC) 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 > Dictated by Tex Andrew (Chemist Helper) 02/25/2024 10:45 AM ITiesha DO have personally [...] extremity for clinical correlation. Procedure Note Tiesha Sy DO - 02/25/2024 PROCEDURE: PET CT WHOLE [...] lung zone. > Dictated by Tex Andrew (Chemist Helper) 02/25/2024 10:45 AM ITiesha DO have personally reviewed and interpreted this examination/study. > Interpreting Provider: Tiesha Sy DO on 02/25/2024 4:00 PM Marcio Mcintosh MD NM ORDERABLES * GLUCOSE SCREEN - POCT (IP) [facility] (02/25/2024 10:15 AM CDT) Glucose WB/POC 101 70 - 115 mg/dL [facility] POCT TESTING Blood BLOOD SPECIMEN / Unknown 02/25/2024 10:15 AM CDT Marcio Mcintosh MD LAB - POINT OF CARE ORDERABLES [facility] POCT TESTING [address] [place] [address], [facility] [phone] documented in this encounter Visit Diagnoses Diagnosis Thyroid cancer (CMS/HCC) Malignant neoplasm of thyroid gland Metastasis to bone (HCC) Secondary malignant neoplasm of bone and bone marrow Papillary carcinoma of thyroid (HCC) Malignant neoplasm of thyroid gland 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 Neoplasm of unspecified nature of bone, soft tissue, and skin Cancer, metastatic to bone (HCC) Secondary malignant neoplasm of bone and bone marrow documented in this encounter Administered Medications Inactive Administered Medications - up to 3 most recent administrations Medication Order MAR Action Action Date Dose Rate Site F-18 fludeoxyglucose (FDG) injection SOLN 6.17 millicurie 6.17 millicurie, Intravenous, ONCE, 1 dose, On Wed02/25/24 at 1100 $ Given 02/25/2024 10:22 AM CDT 6.17 millicuries documented in this encounter Care Teams Textile Slitting Machine Operator Relationship Specialty Start Date End Date Yaya Villatoro MD [address] [facility] [address] [place] [phone] PCP - General Internal Medicine 05/04/23 Joseph Manzanares MD [address] [place] [phone] Internal Medicine 04/21/23 documented as of this encounter
--- OUTSIDE RECORDS SUMMARY | 2024-07-23 07:07 | XMS_ITS | Encounter Summary ---
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 Cancer, metastatic to bone (HCC) Procedures MRI CERVICAL SPINE WWO CONT Marcio Mcintosh MD [address] [place] [address] [facility] Mri [address] [place] [address] Referral ID Status Reason Start Date Expiration Date Visits Re quested Visits Authorized [id number] Closed 02/25/2024 05/25/2024 1 1 Encounter Details Date Type Department Care Team (Latest Contact Info) Description 02/25/2024 11:30 AM CDT - 02/25/2024 11:59 PM CDT Hospital Encounter [facility] MRI [address] [place] [phone] Marcio Mcintosh MD [address] [place] [address] Discharge Disposition: Home or Self [...] Date Recorded PHQ2 TOTAL SCORE 1 11/25/2022 [facility] - [...] naloxone HCl (Narcan) 4 MG/0.1ML nasal spray [place] 1 (one) spray into the nose as [...] st Contact Info) Description 07/25/2024 10:00 AM GLASS PRODUCTION MACHINE OPERATOR Office Visit [facility] - Endocrinology [address] [place] [phone] Yosi Bustamante MD [address] [place] [address] 2L Div of Endocr[place] [address] 07/26/2024 10:00 AM GLASS PRODUCTION MACHINE OPERATOR Appointment [facility] DIAGNO[facility]IC RAD [address] [place] [phone] Neri Delgado MD [address] [place] [address] 07/26/2024 10:00 AM GLASS PRODUCTION MACHINE OPERATOR Office Visit [facility] - ENT [address] [place] [phone] Myra Farmer, ELEVATOR PILOT [address] [place] [address] 2L [place] [phone] 07/26/2024 11:15 AM GLASS PRODUCTION MACHINE OPERATOR Office Visit [facility] - ENT [address] [place] [phone] Neri Delgado MD [address] [place] [address] 08/02/2024 2:20 PM GLASS PRODUCTION MACHINE OPERATOR Appointment [facility] [address] [place] [address] 08/02/2024 3:00 PM GLASS PRODUCTION MACHINE OPERATOR Office Visit [facility] - Hematology/Oncology [address] [place] [phone] Remi Beckett MD [address] [place] [phone] 08/18/2024 1:45 PM GLASS PRODUCTION MACHINE OPERATOR Office Visit [facility] - ENT [address] [place] [phone] Neri Delgado MD [address] [place] [address] documented as of this encounter Procedures Procedure Name Priority Date/Time Associated Diagnosis Comments MRI CERVICAL SPINE WWO CONT Routine 02/25/2024 12:37 PM CDT Thyroid cancer (CMS/HCC) Metastasis to bone (HCC) Papillary carcinoma of thyroid (HCC) 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 Redemonstration of extensive postoperative changes of posterior spinal fusion and decompressive laminectomies. 2. Redemonstration of a grossly unchanged metastatic disease in the cervical spine at C2, C4, C5, C6 and T1 levels as detailed above. No definite new lesions. No spinal cord compression. > Interpreting Provider: William Qiu MD on 02/29/2024 3:49 PM Narrative 02/29/2024 3:49 PM CDT PROCEDURE: ??MRI CERVICAL SPINE WWO CONT, DATE/TIME OF EXAM: ??02/25/2024 12:38 PM, LOCATION ??[facility] INDICATION: C73: Thyroid cancer (HCC) C79.51: Metastasis to bone (HCC) C73: Papillary carcinoma of thyroid (HCC) C79.51: Secondary malignant neoplasm of bone (HCC) D49.2: Cervical spine tumor C79.51: Cancer, metastatic to bone (HCC) ADDITIONAL CLINICAL INFORMATION: Ordering Provider Reason For Exam: ??eval for changes Technologist Note: Additional: EXAMINATION: Magnetic resonance imaging (MRI) of the cervical spine without and with contrast TECHNIQUE: MRI of the cervical spine was performed prior to and following the uneventful administration of 6 mL Gadavist intravenous contrast according to standard protocol. COMPARISON: 11/23/2023. FINDINGS: Redemonstration of postoperative findings of C3-C7 decompressive laminectomy for resection of the extramedullary tumor, posterior instrumented fusion with the through the levels of C2-T2 with vertical interconnecting rods and bilateral lateral mass/pedicular screws bilaterally at the level of C2-C3 and T1-T2, unilateral right-sided screws through the levels of C4-C7. The instrumentation is not well evaluated. Susceptibility artifacts from the hardware partially obscure the adjacent structures. Redemonstrated are marrow replacing T1 hypointense and T2 hyperintense heterogeneously enhancing lesions in the C2, C4, C5, C6, T1 vertebral bodies, and the left C4, C5, C6 and right T1 lateral masses, consistent with osseous metastases. There is a severe neuroforaminal stenosis due to tumor at C4-C5, C5-C6 and C6-C7 levels on the left. No new lesions are identified. There is fatty replacement of the bone marrow in these bones without metastasis, likely representing post radiation changes. The alignment is normal. The prevertebral soft tissue is normal in thickness. Vertebral bodies are normal in height without evidence of acute fracture. Other than middle atlantoaxial joint osteoarthritis, the craniocervical junction appears normal. The spinal cord appears normal. There is mild moderate multilevel degenerative disc disease. The central canal is patent. Normal flow voids are identified in the vertebral arteries. Procedure Note William Qiu MD - 02/29/2024 PROCEDURE: MRI CERVICAL SPINE WWO CONT, DATE/TIME OF EXAM: 02/25/2024 12:38 PM, LOCATION [facility] INDICATION: C73: Thyroid cancer (HCC) C79.51: Metastasis to bone (HCC) C73: Papillary carcinoma of thyroid (HCC) C79.51: Secondary malignant neoplasm of bone (HCC) D49.2: Cervical spine tumor C79.51: Cancer, metastatic to bone (HCC) ADDITIONAL CLINICAL INFORMATION: Ordering Provider Reason For Exam: eval for changes Technologist Note: Additional: EXAMINATION: Magnetic resonance imaging (MRI) of the cervical spinewithout and with contrast TECHNIQUE: MRI of the cervical spine was performed prior to andfollowing the uneventful administration of 6 mL Gadavist intravenous contrast according to standard protocol. COMPARISON: 11/23/2023. FINDINGS: Redemonstration of postoperative findings of C3-C7 decompressive laminectomy for resection of the extramedullary tumor, posterior instrumented fusion with the through the levels of C2-T2 with vertical interconnecting rods and bilateral lateral mass/pedicular screws bilaterally at the level of C2-C3 and T1-T2, unilateral right-sidedscrews through the levels of C4-C7. The instrumentation is not well evaluated. Susceptibility artifacts from the hardware partially obscure theadjacent structures. Redemonstrated are marrow replacing T1 hypointense and T2 hyperintense heterogeneously enhancing lesions in the C2, C4, C5, C6, T1 vertebral bodies, and the left C4, C5, C6 and right T1 lateral masses, consistent with osseous metastases. There is a severe neuroforaminal stenosis dueto tumor at C4-C5, C5-C6 and C6-C7 levels on the left. No new lesions are identified. There is fatty replacement of the bone marrow in these bones without metastasis, likely representing post radiation changes. The alignment is normal. The prevertebral soft tissue is normal in thickness. Vertebral bodies are normal in height without evidence ofacute fracture. Other than middle atlantoaxial joint osteoarthritis, the craniocervical junction appears normal. The spinal cord appears normal. There is mild moderate multilevel degenerative disc disease. The central canal is patent. Normal flow voids are identified in the vertebral arteries. IMPRESSION: 1. Redemonstration of extensive postoperative changes of posteriorspinal fusion and decompressive laminectomies. 2. Redemonstration of a grossly unchanged metastatic disease in the cervical spine at C2, C4, C5, C6 and T1 levels as detailed above. No definite new lesions. No spinal cord compression. > Interpreting Provider: William Qiu MD on 02/29/2024 3:49 PM Marcio Mcintosh MD MR ORDERABLES documented in [...] MAR Action Action Date Dose Rate Site gadobutrol (Gadavist) injection Intravenous, CONTRAST ONCE, Starting on 02/25/24 at 1223, Until 02/26/24 at 0131 $ Given - Contrast 02/25/2024 12:23 PM CDT 6 mL documented in this encounter Care Teams Tumble Tailstock Turret Lathe Operator Relationship Specialty Start Date End Date Yaya Villatoro MD [address] [facility] [address] [place] [phone] PCP - General Internal Medicine 05/04/23 Joseph Manzanares MD [address] [place] [phone] Internal Medicine 04/21/23 documented as of this encounter
--- OUTSIDE RECORDS SUMMARY | 2024-07-23 07:07 | XMS_ITS | Encounter Summary ---
Author Organization [facility] Health Address [address] [facility] [place] [address] Care Team Providers Care Dictaphone Typist Name Role Phone Joseph Manzanares MD Unavailable Yaya Villatoro MD Primary Care Provider [phone]- [phone] Encounter Details Date Type Department Care Team (Latest Contact Info) Description 02/07/2024 2:56 PM CDT - 02/07/2024 11:59 PM CDT Hospital Encounter [facility] [address] [facility], 2nd [place] [address] Discharge Disposition: Home or Self Care Social [...] Date Recorded PHQ2 TOTAL SCORE 1 11/25/2022 [facility] - [...] naloxone HCl (Narcan) 4 MG/0.1ML nasal spray [place] 1 (one) spray into the nose as [...] Contact Info) Description 07/25/2024 10:00 AM LICENSED BONDSMAN Office Visit [facility] - Endocrinology [address] [place] [phone] Yosi Bustamante MD [address] [place] [address] 2L [place] [address] 07/26/2024 10:00 AM LICENSED BONDSMAN Appointment [facility] [address] [place] [address] Neri Delgado MD [address] [place] [address] 07/26/2024 10:00 AM LICENSED BONDSMAN Office Visit [facility] - ENT [address] [place] [phone] Myra Farmer, MACHINE FEATHEREDGER AND REDUCER [address] [place] [address] 2L [place] [phone] 07/26/2024 11:15 AM LICENSED BONDSMAN Office Visit [facility] - ENT [address] [place] [phone] Neri Delgado MD [address] [place] [address] 08/02/2024 2:20 PM LICENSED BONDSMAN Appointment [facility] [address] [place] [address] 08/02/2024 3:00 PM LICENSED BONDSMAN Office Visit [facility] - Hematology/Oncology [address] [place] [phone] Remi Beckett MD [address] [place] [phone] 08/18/2024 1:45 PM LICENSED BONDSMAN Office Visit [facility] - ENT [address] [place] [phone] Neri Delgado MD [address] [place] [address] documented as of this encounter Procedures Procedure Name Priority Date/Time Associated Diagnosis Comments CBC W AUTO DIFFERENTIAL STAT 02/07/2024 3:06 PM CDT Papillary carcinoma of thyroid (HCC) COMPREHENSIVE METABOLIC PANEL STAT 02/07/2024 3:06 PM CDT Papillary carcinoma of thyroid (HCC) documented in this encounter Results * (ABNORMAL) COMPREHENSIVE METABOLIC PANEL (02/07/2024 3:06 PM CDT) BUN 27(H) 7 - 26 mg/dL 02/07/2024 3:59 PM [facility] Creatinine 0.68 0.56 - 0.96 mg/dL 02/07/2024 3:59 PM [facility] Sodium 134(L) 136 - 145 mmol/L 02/07/2024 3:59 PM [facility] Potassium 4.2 3.5 - 4.5 mmol/L 02/07/2024 3:59 PM [facility] Chloride 102 98 - 107 mmol/L 02/07/2024 3:59 PM [facility] CO2 23 22 - 29 mmol/L 02/07/2024 3:59 PM [facility] Glucose 93 70 - 115 mg/dL 02/07/2024 3:59 PM [facility] Calcium 8.5 8.4 - 10.2 mg/dL 02/07/2024 3:59 PM [facility] Protein Total 7.2 6.0 - 8.3 g/dL 02/07/2024 3:59 PM [facility] Albumin 3.6 3.4 - 5.0 g/dL 02/07/2024 3:59 PM [facility] Bilirubin Total 0.3 0.2 - 1.2 mg/dL 02/07/2024 3:59 PM [facility] Alkaline Phosphatase 94 40 - 150 U/L 02/07/2024 3:59 PM [facility] ALT 17 5 - 55 U/L 02/07/2024 3:59 PM [facility] AST 18 5 - 34 U/L 02/07/2024 3:59 PM [facility] Anion Gap 9 6 - 16 02/07/2024 3:59 PM [facility] BUN/Creatinine Ratio 40(H) 7 - 23 02/07/2024 3:59 PM [facility] Osmolality Calculated 283 275 - 295 mOsm/kg 02/07/2024 3:59 PM [facility] Albumin/Globulin Ratio 1.0(L) 1.1 - 2.3 02/07/2024 3:59 PM [facility] eGFR by CKD-EPI >90 >=90 mL/min/1.7 3 m2 02/07/2024 3:59 PM [facility] Blood BLOOD SPECIMEN / Unknown Lab Venipuncture / Unknown 02/07/2024 3:06 PM CDT 02/07/2024 3:28 PM CDT Remi Beckett MD LAB - CHEMISTRY ORDERABLES [facility] [address] [place] [phone], [facility] [phone] * CBC WITH DIFFERENTIAL (02/07/2024 3:06 PM CDT) WBC 8.7 4.0 - 10.7 x10E9/L 02/07/2024 3:33 PM [facility] RBC Count 5.00 3.90 - 5.20 x10E12/L 02/07/2024 3:33 PM [facility] Hemoglobin 14.3 11.9 - 15.8 g/dL 02/07/2024 3:33 PM [facility] Hematocrit 42.5 34.8 - 46.1 % 02/07/2024 3:33 PM [facility] MCV 85.0 80.0 - 98.0 fL 02/07/2024 3:33 PM [facility] MCH 28.6 26.7 - 33.6 pg 02/07/2024 3:33 PM [facility] MCHC 33.6 31.7 - 36.3 g/dL 02/07/2024 3:33 PM [facility] RDW-CV 13.8 11.3 - 14.8 % 02/07/2024 3:33 PM [facility] Platelet Count 313 150 - 420 x10E9/L 02/07/2024 3:33 PM [facility] MPV 9.4 7.8 - 11.4 fL 02/07/2024 3:33 PM [facility] Neutrophil % 69.0 41.0 - 74.0 % 02/07/2024 3:33 PM [facility] Lymphocyte % 20.4 17.0 - 47.0 % 02/07/2024 3:33 PM [facility] Monocyte % 7.7 3.0 - 11.0 % 02/07/2024 3:33 PM [facility] Eosinophil % 2.0 0.0 - 7.0 % 02/07/2024 3:33 PM [facility] Basophil % 0.7 0.0 - 1.6 % 02/07/2024 3:33 PM [facility] Immature Granulocytes % 0.2 0.0 - 1.0 % 02/07/2024 3:33 PM [facility] Neutrophil Absolute 5.98 1.60 - 7.50 x10E9/L 02/07/2024 3:33 PM [facility] Lymphocyte Absolute 1.77 1.00 - 4.40 x10E9/L 02/07/2024 3:33 PM [facility] Monocyte Absolute 0.67 0.15 - 1.00 x10E9/L 02/07/2024 3:33 PM [facility] Eosinophil Absolute 0.17 0.00 - 0.60 x10E9/L 02/07/2024 3:33 PM [facility] Basophil Absolute 0.06 0.00 - 0.13 x10E9/L 02/07/2024 3:33 PM [facility] Blood BLOOD SPECIMEN / Unknown Lab Venipuncture / Unknown 02/07/2024 3:06 PM CDT 02/07/2024 3:28 PM CDT Remi Beckett MD LAB - HEMATOLOGY ORDERABLES Performing Organization Address City/State/[facility] Co de Phone Number [facility] [address] [place] [address], [facility] [phone] documented in this encounter Visit Diagnoses Diagnosis Papillary carcinoma of thyroid (HCC) Malignant neoplasm of thyroid gland documented in this encounter Care Teams Dictaphone Typist Relationship Specialty Start Date End Date Yaya Villatoro MD [address] [phone] PCP - General Internal Medicine 05/04/23 Joseph Manzanares MD [address] [place] [phone] Internal Medicine 04/21/23 documented as of this encounter
--- OUTSIDE RECORDS SUMMARY | 2024-07-23 07:07 | XMS_ITS | Encounter Summary ---
Author Organization [facility] Health Address [address] [facility] [place] [address] Care Team Providers Care Housekeeper Supervisor Name Role Phone Joseph Manzanares MD Unavailable Yaya Villatoro MD Primary Care Provider +1- [phone] Reason for Visit * Reason Onset Date Comments Nutrition Consult 03/08/2024 Encounter Details Date Type Department Care Team (Late st Contact Info) Description 03/08/2024 Telephone [facility] - ENT [facility] [place] [phone] Aimee Santiago, RD/LD Nutrition Consult Social History [...] Date Recorded PHQ2 TOTAL SCORE 1 11/25/2022 [facility] - Occupational [...] of this encounter Progress Notes * Aimee Santiago, RD/LD - 03/08/2024 3:00 PM CDT Nutrition Assessment Pertinent Medical hx: GERD, HLD Diagnosis: Site: Thyroid Histology: PTC Stage: [id number] AJCC IVb Details: Positive margins, LVI +, [...] once daily, was stopped 01/14/2024 - 02/07/2024: resume Lenvatinib 20 mg every day (Reduce dose from 24 mg QD due to mucositis) Food allergies: kiwi extract Weight History: wt gradually declining since 10/2023. 13% loss x5mo (severe) and 7.5% x2mo (significant). Weight: 55.5 kg (122 lb) BMI: 22.39 Wt Readings from Last 3 Encounters: 03/07/24 55.5 kg (122 lb 6.4 oz) 03/07/24 55.3 kg (121 lb 14.4 oz) 02/25/24 56.2 kg (124 lb) Estimated Nutrition Needs: Calories: 6135-5610 kcal (25-30 kcal/kg of abw 55.5 kg) Protein: 66g (1.2 g/kg of abw 55.5 kg) Pertinent Lab Values (per EMR 03/07/24): 134 Na, 28 BUN, 84 GFR, 5.2 phos, Pertinent Medications (per EMR): calcitriol, lidocaine, pepcid, zofran, protonix Comments: Per ENT MD note 02/26, odynophagia is acute, unclear etiology but short term; no clear association with her cancer. Plans to manage conservatively with scheduled tylenol and NSAIDs, plus topical lidocaine prior to eating. Pt also with dysphagia that is likely multifactorial in origin- s/p radiation therapy and cervical spinal fusion likely contributing to dysphagia. Plans to repeat MBS once pain improved. Attempted to call pt today to complete nutrition assessment but no answer. Unable to leave VM d/t message box being full. Will attempt to contact again at a later date. GRACE Chacon, BRITTNEY, LD documented in this encounter Plan of Treatment Upcoming Encounters Date Type Department Care Team (Late st Contact Info) Description 07/25/2024 10:00 AM BIOLOGICAL SCIENCE AIDE Office Visit [facility] - Endocrinology [address] [place] [phone] Yosi Bustamante MD [address] [place] [address] 2L [place] [address] 07/26/2024 10:00 AM BIOLOGICAL SCIENCE AIDE Appointment [facility] [address] [place] [phone] Neri Delgado MD [address] [place] [address] 07/26/2024 10:00 AM BIOLOGICAL SCIENCE AIDE Office Visit [facility] - ENT [address] [place] [phone] Myra Farmer, MORGUE ATTENDANT [address] [place] [address] 2L [place] [phone] 07/26/2024 11:15 AM BIOLOGICAL SCIENCE AIDE Office Visit [facility] - ENT [address] [place] [phone] Neri Delgado MD [address] [place] [address] 08/02/2024 2:20 PM BIOLOGICAL SCIENCE AIDE Appointment [facility] [address] [place] [address] 08/02/2024 3:00 PM BIOLOGICAL SCIENCE AIDE Office Visit [facility] - Hematology/Oncology [address] [place] [phone] Remi Beckett MD [address] [place] [phone] 08/18/2024 1:45 PM BIOLOGICAL SCIENCE AIDE Office Visit [facility] - ENT [address] [place] [phone] Neri Delgado MD [address] [place] [address] documented as of this encounter Visit Diagnoses Not on filedocumented in this encounter Care Teams Housekeeper Supervisor Relationship Specialty Start Date End Date Yaya Villatoro MD [address] [place] [phone] PCP - General Internal Medicine 05/04/23 Joseph Manzanares MD [address] [place] [phone] Internal Medicine 04/21/23 documented as of this encounter
--- OUTSIDE RECORDS SUMMARY | 2024-07-23 07:07 | XMS_ITS | Encounter Summary ---
Author Organization [facility] Address [address] [address] Care Team Providers Care Music Composer Name Role Phone Joseph Manzanares MD Unavailable Yaya Villatoro MD Primary Care Provider [phone]- [phone] Reason for Referral * Consultation (Routine) - Open Specialty Diagnoses / Procedures Referred By Contricardo t Referred To Contact Diagnoses Papillary carcinoma of thyroid (HCC) Remi Beckett MD [address] [place] [address] [address] Referral ID Status Reason Start Date Expiration Date V isits Requested Visits Authorized [id number] Open Specialty Services Required 01/14/2024 01/13/2025 1 1 Reason for Visit * Reason Comments Follow-up 4wk Pain Arm Left numb Pain Leg Left Encounter Details Date Type Department Care Team (Latest Contact Info) Description 01/14/2024 11:20 AM CDT Office Visit [facility] - Hematology/Oncology [address] [place] [address] Remi Beckett MD [address] [place] [address] Papillary carcinoma of thyroid (HCC) (Primary Dx); Encounter for antineoplastic chemotherapy; Cancer, metastatic to bone (HCC) Social History Tobacco Use Types [...] Date Recorded PHQ2 TOTAL SCORE 1 11/25/2022 [facility] [place] of Occupat ional Health - Occupational Stress [...] place to sleep or slept in a halfway (including now)? No 10/02/2022 Sex and Gender Information Value Date Recorded Sex Assigned at Not on file Gender Identity Not on file Sexual Orientation Not on file documented as of this encounter Last Filed Vital Signs Vital Sign Reading Time Taken Comments Blood Pressure 123/80 01/14/2024 11:25 AM CDT Pulse 81 01/14/2024 11:25 AM CDT Temperature 37 ??C (98.6 ??F) 01/14/2024 11:25 AM CDT Respiratory Rate 18 01/14/2024 11:25 AM CDT Oxygen Saturation 96% 01/14/2024 11:25 AM CDT Inhaled Oxygen Concentration - - Weight 60.1 kg (132 lb 8 oz) 01/14/2024 11:25 AM CDT Height 157.5 cm (5' 2) 01/14/2024 11:25 AM CDT Body Mass Index 24.23 01/14/2024 11:25 AM CDT documented in this encounter Functional Status [...] this encounter Patient Instructions * Patient Instructions* Darryl العراقي RN - 01/14/2024 11:44 AM CDT Thank you for entrusting your healthcare to the physicians and other specialists at the [facility]. [facility]: For symptom management or prescription questions during business hours (Mon-Fri 8AM-4:30PM), pleasecall the triage nurse. Outside of business hours, please call the hematology/oncology doctor on-call. Hem/Onc Doctor On-Call (After hours, weekends, holidays): [phone], Dial [phone] (Medical Affairs Manager) and askfor the hematology/oncology fellow on-call and they will [...] documented in this encounter Progress Notes * Remi Beckett MD - 01/14/2024 11:28 AM CDT HEMATOLOGY-ONCOLOGY CLINIC NOTE DATE OF VISIT: 01/14/2024 REASON FOR VISIT / CHIEF COMPLAINT: Thyroid cancer SUBJECTIVE: DIAGNOSIS: Papillary carcinoma of thyroid, stage III (pT4a pN1b cM0), diagnosed 08/19/2020, with locally recurrent/residual disease identified 02/05/2022, and distant recurrence in spine diagnosed 10/02/2022, [id number], no targetable mutations TREATMENT HISTORY: - Total [...] free T4 1.4. --10/2023: Discussed with her fare collector Dr. Bustamante. She is not a good candidate for repeatRAI, which also does not have good bone/ELECTRONIC EQUIPMENT REPAIRMEN penetration. Hence decided to initiate lenvatinib 24 mgorally once daily. --11/05/2023: Brain MRI negative for metastasis. --11/23/2023: MRI cervical spine consistent with metastatic disease involvement of the C2, C4, C5, C6 and T1 vertebral bodies, not significantly changed compared to prior. --Early 01/2024: Started on lenvatinib 24 mg once daily. INTERVAL HISTORY: She presents to the clinic today for follow-up. States she has severe oral mucositis after the initiation of lenvatinib therapy. She is unable to swallow properly because of this. Denies new lumps/bumps, night sweats, weight loss, nausea, vomiting or diarrhea. Appetite is good. Ambulating reasonably well. Past Medical History: Diagnosis Date Anxiety and [...] status: Tobacco Use Smoking status: Some Days Packs/day: 0.25 Years: 40.00 Additional pack years: 0.00 Total pack years: 10.00 Types: Cigarettes Start date: 07/22/1973 Smokeless tobacco: Current Tobacco comments: 1-2 cigarettes per day current smoker Vaping Use Vaping Use: Never used Substance and Sexual Activity Alcohol use: No [...] Medications Medication Sig acetaminophen (Tylenol) 500 MG capsule Take 2 (two) capsules by mouth every 8 hours as needed for Fever or Pain albuterol HFA (Proventil; Ventolin; Proair) 108 (90 Base) MCG/ACT inhaler Inhale 2 (two) puffs by mouth every 6 hours as needed atorvastatin (Lipitor) 40 MG tablet TAKE 1 [...] Inject 1 mL subcutaneously Every 180 days diphenhydrAMINE/maalox/lidocaine visc 1:1:1 (Magic Mouthwash) suspension Swish and spit 10 mL 4 times daily Reasons: Mouth Pain famotidine (PEPCID) 20 MG tablet Take 1 [...] 10 MG & 4 MG capsule Take two 10 mg capsules and one 4 mg capsule (24 mg total) by mouth once a day. levothyroxine (Synthroid) 112 MCG tablet Take 1 (one) tablet by mouth daily before breakfast Reasons: Cancer of Thyroid, Underactive Thyroid naloxone HCl (Narcan) 4 MG/0.1ML nasal spray Amite 1 (one) spray into the nose as [...] every 6 hours as needed for Nausea/Vomiting traZODone (DESYREL) 50 MG tablet Take 1 [...] Active Treatment Days for Brisa Gonzalez (until 01/19/2024) There are no remaining days before 01/19/2024. REVIEW OF SYSTEMS: A 10 point review of systems was performed and negative except as listed in the history above. OBJECTIVE: PHYSICAL EXAM: Vitals: BP 123/80 (BP Location: Right arm, Patient Position: Sitting, BP Cuff Size: Small adult) Pulse 81 Temp 98.6 ??F (37 ??C) (Oral) Resp 18 Ht 1.575 m (5' 2) Wt 60.1 kg (132 lb 8 oz) SpO2 96% Wt Readings from Last 3 Encounters: 01/14/24 60.1 kg (132 lb 8 oz) 12/10/23 59.7 kg (131 lb 11.2 oz) 11/24/23 60 kg (132 lb 3.2 oz) General appearance: Comfortable, not in acute distress. Head: Normocephalic, atraumatic. Eyes: Conjunctiva/corneas clear. EOM's intact. Nose: Nares normal, septum midline, mucosa normal, no drainage or sinus tenderness. Neck: Supple, symmetrical, trachea midline. Lungs: Clear to auscultation bilaterally, respirations unlabored. Heart: Regular rate and rhythm. Abdomen: Soft, nontender, bowel sounds active, no masses, no organomegaly. Extremities: Extremities normal, atraumatic, no cyanosis or edema. Skin: No rashes or lesions. Neurologic: AAO, no gross motor deficits. ECO Karnofsky Performance Status: 80% - Normal activity with effort; some signs or symptoms of disease LABS: Recent Labs Component Name 01/14/24 1113 12/10/23 1054 10/21/23 1450 10/07/22 0012 10/05/22 2234 10/05/22 0436 WBC 8.6 7.7 7.6 8.1 8.9 9.3 RBC 5.49* 5.36* 4.83 3.03* 3.18* 3.32* HGB 15.3 14.9 13.7 9.2* 9.7* 10.2* HCT 44.4 45.1 41.1 27.3* 29.2* 30.5* MCV 80.9 84.1 85.1 90.1 91.8 91.9 MCHC 34.5 33.0 33.3 33.7 33.2 33.4 PLTCOUNT 275 285 290 263 239 239 NEUTPCT 65.6 70.4 68.6 59.0 67.4 68.2 LYMPHPCT 19.0 17.0 19.8 - - - NEUTABS - - - 4.75 6.03 6.32 LYMPHABS 1.64 1.31 1.51 - - - BASOABS 0.05 0.05 0.03 - - - Recent Labs Component Name 01/14/24 1113 12/10/23 1054 10/25/23 1445 10/21/23 1450 09/09/23 1343 12/24/22 1059 10/07/22 0012 10/05/22 2234 10/05/22 0436 POTASSIUM 4.0 4.3 3.8 3.6 3.7 - 3.8 3.7 3.7 CO2 21* 21* 27 22 24 - 25 25 25 BUN 38* 30* 10 14 15 - 15 19 10 CREATININE 0.94 0.77 0.81 0.80 0.80 - 0.56 0.53* 0.59 EGFR 67* 86* 81* 82* 82* - >90 >90 >90 GLUCOSE 101 101 88 122* 103 - 92 118* 90 CALCIUM 9.0 9.3 8.8 8.8 8.9 - 9.0 8.6 8.3* MAGNESIUM - - - - - - 1.7 1.6 1.7 PHOS - 4.8 4.7 - 4.7 - 5.3* 4.6 3.6 ALT 20 17 - 15 - - - - - AST 20 17 - 16 - - - - - ALKPHOS 97 83 - 85 - - - - - - = values in this interval not displayed. RADIOLOGY: MRI brain 11/05/2023 IMPRESSION: 1. No evidence of brain metastases. 2. 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 MRI cervical spine 11/23/2023 IMPRESSION: 1. Redemonstrated posterior C2-T2 spinal fusion with C3-C7 laminectomies as above, unchanged compared to prior. 2. Redemonstrated marrow replacing lesions consistent with metastatic disease involving the C2, C4,C5, C6 and T1 vertebral bodies as above, not significantly changed compared to prior. There is mildSTIR signal hyperintensity within the central portion of the C7 vertebral body without associated T1 signal hypointensity, likely artifactual however attention on follow-up is recommended. Otherwise, no discrete osseous lesions are visualized. 3. Persistent ventral epidural extension of tumor from the C4-C5 through T1-T2 levels with associated ventral effacement of the central canal measuring up to 0.5 cm in maximal thickness, not significantly changed compared to prior. There is no significant associated central canal stenosis. 4. Persistent soft tissue mass involving the left C4-C5 and C5-C6 neural foramina overall, not significantly changed in size as compared to prior. There is persistent minimal narrowing of the left vertebral artery with a normal flow void, overall unchanged. 5. Findings suggestive of possible right true vocal cord dysfunction. Clinical correlation is recommended. ASSESSMENT: Ms. Brisa Walters is a very [...] was started on lenvatinib around early 01/2024. She presents today for follow-up. # Papillary [...] 10/22/2023 - Lenvatinib, early 01/2024 to present # Comorbidities: Hypertension, hyperlipidemia, GERD, psoriasis?, anxiety/depression. PLAN: - Labs reviewed (CBC, CMP). She has severe mucositis and possibly esophagitis (grade 2 to 3) related to lenvatinib therapy. Will plan to hold at this time and reevaluate in 2 to 3 weeks. If improves to ~grade 1 or better, will plan to resume lenvatinib at reduced dose of 20 mg once daily. - Magic mouthwash and high dose tylenol. - Plans noted for repeat radioactive iodine therapy with endocrinology. She has obtained dental clearance for BMA, and will receive it through endocrinology. - RTC in 2 weeks with repeat labs. She will call us with questions/concerns in [...] perforation, bleeding/hemorrhage, diarrhea, dehydration, wound healing complications. Remi Beckett MD Retail Selling Floor Leaderreal estate agency principal Department of Hematology & Medical Oncology [facility]: documented in this encounter Plan of Treatment Upcoming Encounters Date Type Department Care Team (Late st Contact Info) Description 07/25/2024 10:00 AM CARTRIDGE GAUGER Office Visit [facility] - Endocrinology [address] [place] [phone] Yosi Bustamante MD [address] [place] [address] [address]L [place] [address] 07/26/2024 10:00 AM CARTRIDGE GAUGER Appointment [facility] [address] [place] [phone] Neri Delgado MD [address] [place] [address] 07/26/2024 10:00 AM CARTRIDGE GAUGER Office Visit [facility] - ENT [address] [place] [phone] Myra Farmer, HAIR SAMPLE MATCHER [address] [place] [address] 2L [place] [phone] 07/26/2024 11:15 AM CARTRIDGE GAUGER Office Visit [facility] - ENT [address] [place] [phone] Neri Delgado MD [address] [place] [address] 08/02/2024 2:20 PM CARTRIDGE GAUGER Appointment [facility] [address] [place] [phone] 08/02/2024 3:00 PM CARTRIDGE GAUGER Office Visit [facility] - Hematology/Oncology [address] [place] [phone] Remi Beckett MD [address] [place] [phone] 08/18/2024 1:45 PM CARTRIDGE GAUGER Office Visit [facility] - ENT [address] [place] [address] Neri Delgado MD [address] [place] [address] Scheduled Referrals Name Type Priority Associated Diagnoses Order Schedule AMB REFERRAL TO NUTRITION Outpatient Referral Routine Papillary carcinoma of thyroid (HCC) 1 Occurrences starting 01/14/2024 until 01/13/2025 documented as of this encounter Visit Diagnoses Diagnosis Papillary carcinoma of thyroid (HCC)- Primary Malignant neoplasm of thyroid gland Encounter for antineoplastic chemotherapy Cancer, metastatic to bone (HCC) Secondary malignant neoplasm of bone and bone marrow documented in this encounter Care Teams Music Composer Relationship Specialty Start Date End Date Yaya Villatoro MD [address] [facility] [address] [place] [phone] PCP - General Internal Medicine 05/04/23 Joseph Manzanares MD [address] [place] [phone] Internal Medicine 04/21/23 documented as of this encounter
--- OUTSIDE RECORDS SUMMARY | 2024-07-23 07:07 | XMS_ITS | Encounter Summary ---
Author Organization [facility] Address [address] [place] [address] Care Team Providers Care Piggery Worker Name Role Phone Joseph Manzanares MD Unavailable Yaya Villatoro MD Primary Care Provider +1- [phone] Encounter Details Date Type Department Care Team (Latest Contact Info) Description 02/25/2024 Travel Social History Tobacco Use Types Packs/Day [...] Date Recorded PHQ2 TOTAL SCORE 1 11/25/2022 [facility] Occupat ional Health - Occupational [...] st Contact Info) Description 07/25/2024 10:00 AM BLAST FURNACE HELPER [facility] Endocrinology [address] [place] [phone] Yosi Bustamante MD [address] [place] [address] 2L Div [place] [address] 07/26/2024 10:00 AM BLAST FURNACE HELPER Appointment [facility] [address] [place] [address] Neri Delgado MD [address] [place] [phone] 07/26/2024 10:00 AM BLAST FURNACE HELPER Office Visit [facility] - ENT [address] [place] [phone] Myra Farmer, TAKER OFF HEMP FIBER [address] [place] [address] 2L [place] [phone] 07/26/2024 11:15 AM BLAST FURNACE HELPER Office Visit [facility] - ENT [address] [place] [phone] Neri Delgado MD [address] [place] [address] 08/02/2024 2:20 PM BLAST FURNACE HELPER Appointment [facility] [address] [place] [address] 08/02/2024 3:00 PM BLAST FURNACE HELPER Office Visit [facility] - Hematology/Oncology [address] [place] [phone] Remi Beckett MD [address] [place] [phone] 08/18/2024 1:45 PM BLAST FURNACE HELPER Office Visit [facility] - ENT [address] [place] [address] Neri Delgado MD [address] [place] [address] documented as of this encounter Visit Diagnoses Not on filedocumented in this encounter Care Teams Piggery Worker Relationship Specialty Start Date End Date Yaya Villatoro MD [address] [phone] PCP - General Internal Medicine 05/04/23 Joseph Manzanares MD [address] [place] [phone] Internal Medicine 04/21/23 documented as of this encounter
--- OUTSIDE RECORDS SUMMARY | 2024-07-23 07:07 | XMS_ITS | Encounter Summary ---
Author Organization [facility] Health Address [address] [facility] [place] [address] Care Team Providers Care Rotary Drill Operator Helper Name Role Phone Joseph Manzanares MD Unavailable Yaya Villatoro MD Primary Care Provider [phone] Reason for Visit * Reason Comments Follow-up 2wk Encounter Details Date Type Department Care Team (Latest Contact Info) Description 02/07/2024 3:20 PM CDT Office Visit [facility] - Hematology/Oncology [address] [place] [address] Remi Beckett MD [address] [place] [address] Encounter for antineoplastic chemotherapy (Primary Dx); Papillary carcinoma of thyroid (HCC); Cancer, metastatic to bone (HCC); Mucositis due to antineoplastic therapy; Left shoulder pain, unspecified chronicity Social History Tobacco Use Types Packs/Day Years [...] Date Recorded PHQ2 TOTAL SCORE 1 11/25/2022 [facility] - Occupational [...] Sign Reading Time Taken Comments Blood Pressure 138/87 02/07/2024 3:19 PM CDT Pulse 86 02/07/2024 3:19 PM CDT Temperature 36.9 ??C (98.5 ??F) 02/07/2024 3:19 PM CD T Respiratory Rate 17 02/07/2024 3:19 PM CDT Oxygen Saturation 98% 02/07/2024 3:19 PM CDT Inhaled Oxygen Concentration - - Weight 57.9 kg (127 lb 9.6 oz) 02/07/2024 3:19 P M CDT Height 157.5 cm (5' 2) 02/07/2024 3:19 PM CDT Body Mass Index 23.34 02/07/2024 3:19 PM CDT documented in this encounter Functional [...] as of this encounter Progress Notes * Eliceo Mills MD - 02/07/2024 3:20 PM CDT HEMATOLOGY-ONCOLOGY CLINIC NOTE DATE OF VISIT: 02/07/2024 REASON FOR VISIT / CHIEF COMPLAINT: Thyroid cancer SUBJECTIVE: DIAGNOSIS: Papillary carcinoma of thyroid, stage III (pT4a pN1b cM0), diagnosed 08/19/2020, with locally recurrent/residual disease identified 02/05/2022, and distant recurrence in spine diagnosed 10/02/2022, [id number], no targetable mutations TREATMENT HISTORY: - Total [...] free T4 1.4. --10/2023: Discussed with her fruit press operator Dr. Bustamante. She is not a good candidate for repeatRAI, which also does not have good bone/DINING SERVER penetration. Hence decided to initiate lenvatinib 24 [...] from 24 ng QD due to mucositis) INTERVAL HISTORY: She presents to the clinic today for follow-up. She today's states significant improvement regarding mucositis since last visit, she has returned to baseline. Moreover, she has chronic swallowing problems after radiation therapy. Denies new lumps/bumps, night sweats, weight loss, nausea, mouth sores, fever, chills, leg edema, constipation, bleeding, vomiting or diarrhea. Appetite is good. Ambulating [...] day current smoker Vaping Use Vaping Use: Every day Substance and Sexual Activity Alcohol use: No [...] Neg Hx Current Outpatient Medications Medication Sig atorvastatin (Lipitor) [...] Inject 1 mL subcutaneously Every 180 days famotidine (PEPCID) 20 MG tablet Take 1 [...] a day. (Patient not taking: Reported on 01/24/2024) levothyroxine (Synthroid) 112 MCG tablet Take 1 (one) tablet by mouth daily before breakfast Reasons: Cancer of Thyroid, Underactive Thyroid naloxone HCl (Narcan) 4 MG/0.1ML nasal spray [place] 1 (one) spray into the nose as [...] Active Treatment Days for Brisa Gonzalez (until 02/07/2024) There are no remaining days before 02/07/2024. REVIEW OF SYSTEMS: She had chronic hoarseness, difficult swallowing (after RT), left shoulder pain (chronic), left hippain and decrease in strength in the right arm due to metastasis disease. A 10 point review of systems was performed and negative except as listed in the history above. OBJECTIVE: PHYSICAL EXAM: Vitals: There were no vitals taken for this visit. Wt Readings from Last 3 Encounters: 01/24/24 58.2 kg (128 lb 3.2 oz) 01/14/24 60.1 kg (132 lb 8 oz) 12/10/23 59.7 kg (131 lb 11.2 oz) General appearance: Comfortable, not in acute distress. Head: Normocephalic, atraumatic. Eyes: Conjunctiva/corneas clear. EOM's intact. Nose: Nares normal, septum midline, mucosa normal, no drainage or sinus tenderness. Neck: Scar noted, supple, symmetrical, trachea midline. Lungs: Clear to auscultation bilaterally, respirations unlabored. Heart: Regular rate and rhythm. Abdomen: Soft, nontender, bowel sounds active, no masses, no organomegaly. Extremities: Extremities normal, atraumatic, no cyanosis or edema. Skin: Multiple psoriatic lesions over the upper extremities. Neurologic: Strength is 3/5 on upper extremities, AAOx3. ECO Karnofsky Performance Status: 80% - Normal [...] 10/22/2023 - Lenvatinib, early 01/2024 to present, however, she had stopped therapy since last visit on 01/14/2024 due to mucositis. Today's she has returned to baseline w/o any sores on the mouth or further sideeffects. # Comorbidities: Hypertension, hyperlipidemia, GERD, psoriasis?, anxiety/depression, Left cuff rotator chronic injury (Due to this decrease strength of the arm), left hip OA. PLAN: - Labs reviewed (CBC, CMP). - She presented on 01/14/2024 with severe mucositis and possibly esophagitis (grade 2 to 3) related to lenvatinib therapy. Therefore, therapy was held with improvement. Today's she has returned at base line. >>> Of note: she has had hoarseness and difficult swallowing since she received RT but last time seeing this symptoms were exacerbated, today she is at baseline (<Grade 1). Hence, resume medication was discussed, but with a lower dose as directed per guideline. She as fully explain as well as to her sister who was at her side and she verbalized understanding and agreed with plan to resume lenvatinib at reduced dose of 20 mg once daily. - She brought up after PE that she was planning to get a left shoulder surgery 3 years ago before thyroid cancer diagnosis was made, therefore, she was encourage to make an appointment with her orthopedic and let us know to coordinate if she would need surgery. - Plans noted for repeat radioactive iodine therapy with endocrinology, however, next appointment noted in the system is until next year on July. Hence she will follow up regarding early appointment. - RTC in 2 weeks with repeat labs (CBC and CMP today's results noted and explain to her, unremarkable). She will call us with questions/concerns in [...] perforation, bleeding/hemorrhage, diarrhea, dehydration, wound healing complications. Eliceo Pena MD, PGY-IV Hematology-Oncology Fellow [facility] Attending Physician Supervisory Note I personally interviewed and examined the patient with the boiler house operator. I confirm the findings and agree with the assessment and plan. Remi Beckett MD Flight Attendant Inflight Servicesplastics seasoner operator Department of Hematology & Medical Oncology [facility] Clinic: documented in this encounter Plan of Treatment Upcoming Encounters Date Type Department Care Team (Late st Contact Info) Description 07/25/2024 10:00 AM COMMERCIAL SHEET METAL FOREMAN Office Visit [facility] - Endocrinology [address] [place] [phone] Yosi Bustamante MD [address] [place] [address] 2L Div [place] [address] 07/26/2024 10:00 AM COMMERCIAL SHEET METAL FOREMAN Appointment [facility] [address] [place] [phone] Neri Delgado MD [address] [place] [phone] 07/26/2024 10:00 AM COMMERCIAL SHEET METAL FOREMAN Office Visit [facility] - ENT [address] [place] [phone] Myra Farmer, SCHOOL SPEECH LANGUAGE PATHOLOGIST [address] [place] [address] [place] [address] 07/26/2024 11:15 AM COMMERCIAL SHEET METAL FOREMAN Office Visit [facility] - ENT [address] [place] [phone] Neri Delgado MD [address] [place] [phone] 08/02/2024 2:20 PM COMMERCIAL SHEET METAL FOREMAN Appointment [facility] [address] [place] [phone] 08/02/2024 3:00 PM COMMERCIAL SHEET METAL FOREMAN Office Visit [facility] - Hematology/Oncology [address] [place] [phone] Remi Beckett MD [address] [place] [phone] 08/18/2024 1:45 PM COMMERCIAL SHEET METAL FOREMAN [facility] - ENT [address] [place] [phone] Neri Delgado MD [address] [place] [phone] documented as of this encounter Visit Diagnoses Diagnosis Encounter for antineoplastic chemotherapy- Primary Papillary carcinoma of thyroid (HCC) Malignant neoplasm of thyroid gland Cancer, metastatic to bone (HCC) Secondary malignant neoplasm of bone and bone marrow Mucositis due to antineoplastic therapy Mucositis (ulcerative) due to antineoplastic therapy Left shoulder pain, unspecified chronicity documented in this encounter Care Teams Rotary Drill Operator Helper Relationship Specialty Start Date End Date Yaya Villatoro MD [address] [place] [phone] PCP - General Internal Medicine 05/04/23 Joseph Manzanares MD [address] [place] [phone] Internal Medicine 04/21/23 documented as of this encounter
--- OUTSIDE RECORDS SUMMARY | 2024-07-23 07:07 | XMS_ITS | Encounter Summary ---
Author Organization [facility] Health Address [address] [facility] [place] [address] Care Team Providers Care Seed Production Field Supervisor Name Role Phone Joseph Manzanares MD Unavailable Yaya Villatoro MD Primary Care Provider [phone]- [phone] Reason for Referral * Radiology Services (Routine) - Closed Specialty Diagnoses / Procedures Referred By Yuan robins Referred To Contact MRI Diagnoses Metastasis to bone (HCC) Secondary malignant neoplasm of bone (HCC) Procedures MRI Cervical Spine Wwo Cont Marcio Mcintosh MD [address] [place] [address] [facility] M[facility] [address] [place] [address] Referral ID Status Reason Start Date Expiration Date Visits Re quested Visits Authorized [id number] Closed 06/06/2024 09/04/2024 1 1 Reason for Visit * Radiation Therapy (Elective) - Closed Specialty Diagnoses / Procedures Referred By Yuan robins Referred To Contact Radiation Oncology Diagnoses Secondary malignant neoplasm of bone (HCC) Procedures FOLLOW UP Yaya Villatoro MD [address] [phone] Marcio Mcintosh MD [address] [place] [address] Referral ID Status Reason Start Date Expiration Date V isits Requested Visits Authorized [id number] Closed Insurance Mandate 11/24/2023 05/26/2024 2 2 Encounter Details Date Type Department Care Team (Latest Contact Info) Description 03/07/2024 2:00 PM CDT - 03/07/2024 11:59 PM CDT Hospital Encounter [facility] [address] [place] [address] Marcio Mcintosh MD [address] [place] [address] Discharge Disposition: Home or Self [...] Date Recorded PHQ2 TOTAL SCORE 1 11/25/2022 [facility] - Occupational Stress [...] Sign Reading Time Taken Comments Blood Pressure 123/68 03/07/2024 2:20 PM CDT Pulse 89 03/07/2024 2:20 PM CDT Temperature 36.7 ??C (98.1 ??F) 03/07/2024 2:20 PM CD T Respiratory Rate 18 03/07/2024 2:20 PM CDT Oxygen Saturation 97% 03/07/2024 2:20 PM CDT Inhaled Oxygen Concentration - - Weight 55.5 kg (122 lb 6.4 oz) 03/07/2024 2:20 P M CDT Height - - Body Mass Index 22.39 02/25/2024 2:20 PM CDT documented in this [...] (two) tablets by mouth Every 6 Hours (03,,15,21) atorvastatin (Lipitor) 40 MG tabletIndications:Hyperl ipidemia, unspecified [...] 2 x 10 MG & 4 MG capsuleIndications:Cristiano calvillo carcinoma of thyroid (HCC) Take 20 mg by mouth once daily Take two 10 mg capsules (20 mg total) by mouth once a day. 30 capsule 3 03/07/2024 4 documented as of this encounter Progress Notes * Marcio Mcintosh MD - 03/07/2024 2:54 PM CDT Images from the original note were not included. Return Patient Visit Department of Radiation Oncology [facility] ENCOUNTER DATE: 03/07/2024 PATIENT IDENTIFICATION Brisa Walters 1960 Autopopulated Data Chief Complaint: No chief complaint on file. Diagnosis: 1. Cancer, metastatic to bone (HCC) 2. Papillary carcinoma of thyroid (HCC) CC: Follow up Diagnosis: Metastatic thyroid cancer to C spine, stage TxNxM1, s/p Resection of primary thyroid and WARD of 157.6mCi SBRT To Cervical spine s/p 2400cGy in 2 fractions ending on 09/21/2022 Multiple site progression at the C1- T2 region., s/p 2000-3000cGy in 5 fractions ending on 10/22/2023 Referring MD: Environmental Research Project Manager: Yosi Bustamante MD ENT Surgeon: Neri Delgado [...] nerve excision. Postoperatively patient received treatment with ablative I 131 administration she received 157.6 mCi on [...] 5 mm. She underwent palliative radiotherapy with 8355-6965 cGy in 5 fractions delivered via IMRT to the C2 through T1 T2 region. She tolerated well and noted no progression of neurologic symptoms. SUBJECTIVE/HPI: Ms. Brisa Walters is a 63 year old female who returns for a follow up visit. Since our last visit, Brisa has felt during her chemotherapy to have a lump that inhibits from swallowing. She feels need for water and rinsing after eating. She has been on break from chemo and noted improved eating and swallowing without pains. She still has weakness in the bilateral UE, but more right arm and hand than left hand. REVIEW OF SYSTEMS: GENERAL: Denies Headaches, nausea, vomiting PULMONARY: Denies cough or worsened shortness of breath NEUROLOGIC: Denies new neurologic deficit or weakness/loss of motion in arms or legs I have also reviewed the nursing assessment flowsheet below: Radiation Oncology Nursing Assessement 03/07/2024 Education: Karnofsky ECOG Score: Karnofsky ECOG Score: [place] 90-Able to carry on normal activity, minor signs or symptoms of disease, ECOG 0-Fully active, able to carry on all pre-disease activities with restriction Treatment Sites: System Assessment: Pain: Pain: Yes (Throat pain # 1 intensity greg with swallowing) Nausea: Nausea: No Fatigue: Fatigue: Yes (Tired all the time) Sleep: Sleep: No Mobility: Mobility: Yes (Ambulate with walker. Weakness L side. Lightheadeness when bend over sometime.) Bathing/Dressing: Bathing/Dressing: No Breathing: Breathing: Yes (Intermittent cough) Mouth Sores: Mouth Sores: No Eating: Eating: Yes (Trouble with swallowing, food get stuck in throat including soft foods. Requires lot of fluids to aid swallowing. Decreased appetite. Muscle milk 2/day) Indigestion: Indigestion: No Constipation: Constipation: No Diarrhea: Diarrhea: No Changes in Urination: Changes in urination: No Fevers: Fevers: No Skin Dry/Itchy: Skin dry/itchy: No (Hx of psosias, genearlized red dry patches L elbow) Nasal: Nasal: Yes (Intermittent runny nose clear) Hands/Feet: Tingling in hands/feet: Yes (Fingertips of hands) Memory/Concentration: Memory/concentation: No Swelling: Swelling: No (Feeling to neck swelling) Appearance: Appearance: No Sexual: Mucous Membrances: Eye: Ears: Salivary Glands: Pharynx and Esophagus: Larynx: Upper GI: Lower GI including pelvis: Lungs: Other: PAST MEDICAL HISTORY Past Medical History: Diagnosis Date Anxiety and depression Degenerative disc disease, lumbar Disorder of thyroid mass on thyroid - right GERD (gastroesophageal reflux disease) High cholesterol HLD (hyperlipidemia) Hypocalcemia 10/14/2020 Osteoarthritis of one hip, left Other hypoparathyroidism 10/14/2020 Postoperative hypothyroidism 10/14/2020 Psoriasis Seasonal allergies Snoring SOB (shortness of breath) 2/ thyroid mass Thyroid cancer (HCC) 10/14/2020 Tracheal [...] bedtime No current facility-administered medications for this encounter. OBJECTIVE: Vitals: 03/07/24 1420 BP: 123/68 Pulse: 89 Resp: 18 Temp: 98.1 ??F SpO2: 97% Weight: 55.5 kg (122 lb 6.4 oz) PainSc: One PainLoc: Throat Wt Readings from Last 3 Encounters: 03/07/24 55.5 kg (122 lb 6.4 oz) 03/07/24 55.3 kg (121 lb 14.4 oz) 02/25/24 56.2 kg (124 lb) KPS is 80 General Appearance: in no apparent distress, alert, anicteric, and cooperative HEENT: Normocephalic, atraumatic Lymph: No adenopathy of the cervical or supraclavicular fossa visible, surgical scar noted Extremities:extremities normal, atraumatic, no cyanosis or edema Neurological exam reveals alert, oriented, normal speech, no focal findings or movement disorder noted, motor and sensory grossly normal bilaterally, normal muscle tone, no tremors, strength 4/5, abnormal findings: The RUE shows arm weakness and hand weakness at 3/5 and the left hand at 3/5. RADIOGRAPHIC IMAGES: MRI CERVICAL SPINE WWO CONT Result Date: [...] lung zone. > Dictated by Tex Andrew (Program Engagement Director) 02/25/2024 10:45 AM Jared Mckeon DO have personally reviewed and interpreted this examination/study. > Interpreting Provider: Tiesha Sy DO on 02/25/2024 4:00 PM LABORATORY: WBC Date Value Ref Range Status 03/07/2024 8.9 4.0 - 10.7 x10E9/L Final 10/07/2022 8.1 3.5 - 10.5 10??3/uL Final Hemoglobin Date Value Ref Range Status 03/07/2024 15.0 11.9 - 15.8 g/dL Final 10/07/2022 9.2 (L) 12.0 - 15.6 g/dL Final Hematocrit Date Value Ref Range Status 03/07/2024 44.5 34.8 - 46.1 % Final 10/07/2022 27.3 (L) 35.0 - 45.0 % Final INR Date Value Ref Range Status 10/02/2022 1.0 See Comment Final Comment: The suggested therapeutic range for standard coumadin (warfarin) therapy is an INR of 2.0-3.0. For high-risk patients (Mechanical Mitral Valve Prosthesis, etc.), the suggested prophylactic therapeutic range is an INR of 2.5-3.5. Sodium Date Value Ref Range Status 03/07/2024 134 (L) 136 - 145 mmol/L Final Chloride Date Value Ref Range Status 03/07/2024 99 98 - 107 mmol/L Final BUN Date Value Ref Range Status 03/07/2024 28 (H) 7 - 26 mg/dL Final Creatinine Date Value Ref Range Status 03/07/2024 0.78 0.56 - 0.96 mg/dL Final TSH Date Value Ref Range Status 03/07/2024 0.616 0.350 - 4.940 uIU/mL Final IMPRESSION/PLAN Brisa Walters presents to us today with disease control radiographically, but consistent with residual that should continue with systemic therapy.. We would like to see Brisa in 3 month(s)for a follow up visit. We have ordered her future MR scan of the cervical spine. She will continue to work with med onc for resuming her medication and endocrine for her labs and synthroid dose. Minimum duration of time spent in chart (preparing with review of radiographic and laboratory tests, discussion of planned care with staff and physicians, discussion with patient for counseling and educating, as well as ordering future tests, radiographic studies, or procedures) : I spent a total of 22 minutes on the day of the visit. Portions of this note reflect historical treatments, history of disease, ongoing symptomatology, and exam findings that remain unchanged from the past note ( 11/24/2023 , and may be located in Media [...] andyour physicians for clarification. Marcio Mcintosh MD 03/07/2024 2:54 PM documented in this encounter Plan of Treatment Upcoming Encounters Date Type Department Care Team (Late st Contact Info) Description 07/25/2024 10:00 AM NAIL ASSEMBLY MACHINE OPERATOR Office Visit [facility] - Endocrinology [address] [place] [phone] Yosi Bustamante MD [address] [place] [address] 2L [place] [address] 07/26/2024 10:00 AM NAIL ASSEMBLY MACHINE OPERATOR Appointment [facility] [address] [place] [phone] Neri Delgado MD [address] [place] [phone] 07/26/2024 10:00 AM NAIL ASSEMBLY MACHINE OPERATOR Office Visit [facility] - ENT [address] [place] [phone] Myra Farmer, ZAIN [address] [place] [address] 2L [place] [phone] 07/26/2024 11:15 AM NAIL ASSEMBLY MACHINE OPERATOR Office Visit [facility] - ENT [address] [place] [address] [phone] Neri Delgado MD [address] [place] [phone] 08/02/2024 2:20 PM NAIL ASSEMBLY MACHINE OPERATOR Appointment [facility] [address] [place] [phone] 08/02/2024 3:00 PM NAIL ASSEMBLY MACHINE OPERATOR Office Visit [facility] - Hematology/Oncology [address] [place] [address] [phone] Remi Beckett MD [address] [place] [phone] 08/18/2024 1:45 PM NAIL ASSEMBLY MACHINE OPERATOR Office Visit [facility] - ENT [address] [place] [phone] Neri Delgado MD [address] [place] [phone] documented as of this encounter Results * MRI Cervical Spine Wwo Cont (07/06/2024 1:17 PM NAIL ASSEMBLY MACHINE OPERATOR) Anatomical Region Laterality Modality Spine Magnetic Resonan ce 07/06/2024 3:40 PM NAIL ASSEMBLY MACHINE OPERATOR Impressions 07/07/2024 6:34 AM NAIL ASSEMBLY MACHINE OPERATOR IMPRESSION: 1. 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 No definite evidence of severe central canal stenosis or intramedullary tumor is seen. IMPRESSION: Normal cervical spine MRI performed without and with IV contrast. 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
--- OUTSIDE RECORDS SUMMARY | 2024-07-23 07:07 | XMS_ITS | Encounter Summary ---
Author Organization [facility] Health Address [address] [facility] [place] [address] Care Team Providers Care Gas Engine Mechanic Name Role Phone Joseph Manzanares MD Unavailable Yaya Villatoro MD Primary Care Provider +1- [phone] Reason for Visit * Reason Comments Cancer - 2 WK F/U Encounter Details Date Type Department Care Team (Latest Contact Info) Description 03/20/2024 3:00 PM CDT Office Visit [facility] - Hematology/Oncology [address] [place] [address] Remi Beckett MD [address] [place] [address] Papillary carcinoma of thyroid (HCC) (Primary Dx); Encounter for antineoplastic chemotherapy; Cancer, metastatic to bone (HCC); Mucositis due to antineoplastic therapy Social History Tobacco Use Types Packs/Day Years [...] Date Recorded PHQ2 TOTAL SCORE 1 11/25/2022 [facility] - [...] Sign Reading Time Taken Comments Blood Pressure 170/83 03/20/2024 2:39 PM CDT Pulse 84 03/20/2024 2:39 PM CDT Temperature - - Respiratory Rate - - Oxygen Saturation 96% 03/20/2024 2:39 PM CDT Inhaled Oxygen Concentration - - Weight 55.2 kg (121 lb 12.8 oz) 03/20/2024 2:39 PM CDT Height 157.5 cm (5' 2) 03/20/2024 2:39 PM CDT Body Mass Index 22.28 03/20/2024 2:39 PM CDT documented in this [...] this encounter Patient Instructions * Patient Instructions* Remi Beckett MD - 03/20/2024 3:05 PM CDT Thank you for entrusting your healthcare to the physicians and other specialists at the [facility]. [facility] H[facility]On[facility]: For symptom management or prescription questions during business hours (Mon-Fri 8AM-4:30PM), pleasecall the triage nurse. Outside of business hours, please call the hematology/oncology doctor on-call. Hem/Onc Doctor On-Call (After hours, weekends, holidays): [phone], Dial [phone] (Bulk Folder) and askfor the hematology/oncology fellow on-call and [...] Progress Notes * Remi Beckett MD - 03/20/2024 3:00 PM CDT HEMATOLOGY-ONCOLOGY CLINIC NOTE DATE OF VISIT: 03/20/2024 REASON FOR VISIT / CHIEF COMPLAINT: Thyroid cancer SUBJECTIVE: DIAGNOSIS: Papillary carcinoma of thyroid, stage III (pT4a pN1b cM0), diagnosed 08/19/2020, with locally recurrent/residual disease identified 02/05/2022, and distant recurrence in spine diagnosed 10/02/2022, [id number], no targetable mutations TREATMENT HISTORY: - Total [...] free T4 1.4. --10/2023: Discussed with her metal slitter Dr. Bustamante. She is not a good candidate for repeatRAI, which also does not have good bone/ROLLER COASTER ENGINEER penetration. Hence decided to initiate lenvatinib 24 [...] --02/07/2024: Lenvatinib 20 mg every day was resumed, and she had just tolerated it so far. INTERVAL HISTORY: She presents to the clinic today for follow-up; unaccompanied. Mucositis has improved, and she is tolerating lenvatinib 20 mg daily. Denies new lumps/bumps, night sweats, weight loss, nausea, mouth sores, fever, chills, leg edema, constipation, bleeding, vomiting or diarrhea. Appetite is good. Ambulating reasonably well with the help of [...] naloxone HCl (Narcan) 4 MG/0.1ML nasal spray [place] 1 (one) spray into the nose as [...] Active Treatment Days for Brisa Gonzalez (until 03/21/2024) There are no remaining days before 03/21/2024. REVIEW OF SYSTEMS: She had chronic hoarseness, difficult swallowing (after RT), left shoulder pain (chronic), left hippain and decrease in strength in the right arm due to metastasis disease. A 10 point review of systems was performed and negative except as listed in the history above. OBJECTIVE: PHYSICAL EXAM: Vitals: BP 170/83 (BP Location: Right arm, Patient Position: Sitting, BP Cuff Size: Adult) Pulse 84 Ht 1.575 m (5' 2) Wt 55.2 kg (121 lb 12.8 oz) SpO2 96% Wt Readings from Last 3 Encounters: 03/20/24 55.2 kg (121 lb 12.8 oz) 03/07/24 55.5 kg (122 lb 6.4 oz) 03/07/24 55.3 kg (121 lb 14.4 oz) General appearance: Comfortable, not in acute [...] of disease LABS: Recent Labs Component Name 03/20/24 1441 03/07/24 1253 02/07/24 1506 10/21/23 1450 10/07/22 0012 10/05/22 2234 10/05/22 0436 WBC 7.8 8.9 8.7 - 8.1 8.9 9.3 RBC 4.93 5.21* 5.00 - 3.03* 3.18* 3.32* HGB 14.6 15.0 14.3 - 9.2* 9.7* 10.2* HCT 41.8 44.5 42.5 - 27.3* 29.2* 30.5* MCV 84.8 85.4 85.0 - 90.1 91.8 91.9 MCHC 34.9 33.7 33.6 - 33.7 33.2 33.4 PLTCOUNT 297 265 313 - 263 239 239 NEUTPCT 67.8 74.6* 69.0 - 59.0 67.4 68.2 LYMPHPCT 20.7 16.8* 20.4 - - - - NEUTABS - - - - 4.75 6.03 6.32 LYMPHABS 1.62 1.49 1.77 - - - - BASOABS 0.05 0.03 0.06 - - - - - = values in this interval not displayed. Recent Labs Component Name 03/07/24 1253 02/07/24 1506 01/14/24 1113 12/10/23 1054 10/25/23 1445 12/24/22 1059 10/07/22 0012 10/05/22 2234 10/05/22 0436 POTASSIUM 4.0 4.2 4.0 4.3 3.8 [...] present # Comorbidities: Hypertension, hyperlipidemia, GERD, psoriasis?, anxiety/depression, Left cuff rotator chronic injury (Due to this decrease strength of the arm), left hip OA PLAN: - Labs reviewed (CBC, awaiting CMP). Continue lenvatinib 20 mg daily, tolerating well. Repeat scans(CT CAP with contrast and bone scan) early 06/2024. - Plans noted for repeat radioactive iodine therapy with Endocrinology, however, next appointment noted in the system is until next year on July. Hence she will follow up regarding early appointment. - RTC in 4 weeks with repeat [...] with treatment as scheduled. Remi Beckett MD Nurse Recruitermarine steamfitter Department of Hematology & Medical Oncology [facility]: documented in this encounter Plan of Treatment Upcoming Encounters Date Type Department Care Team (Late st Contact Info) Description 07/25/2024 10:00 AM STATISTICAL CONSULTANT Office Visit [facility] - Endocrinology [address] [place] [phone] Yosi Bustamante MD [address] [place] [address] 2L [place] [address] 07/26/2024 10:00 AM STATISTICAL CONSULTANT Appointment [facility] [address] [place] [phone] Neri Delgado MD [address] [place] [address] 07/26/2024 10:00 AM STATISTICAL CONSULTANT Office Visit [facility] - ENT [address] [place] [phone] Myra Farmer, PLATFORM MATERIAL HANDLER MANAGER [address] [place] [address] 2L [place] [phone] 07/26/2024 11:15 AM STATISTICAL CONSULTANT Office Visit [facility] - ENT [address] [place] [phone] Neri Delgado MD [address] [place] [address] 08/02/2024 2:20 PM STATISTICAL CONSULTANT Appointment [facility] [address] [place] [address] 08/02/2024 3:00 PM STATISTICAL CONSULTANT Office Visit [facility] - Hematology/Oncology [address] [place] [phone] Remi Beckett MD [address] [place] [phone] 08/18/2024 1:45 PM STATISTICAL CONSULTANT Office Visit [facility] - ENT [address] [place] [phone] Neri Delgado MD [address] [place] [address] documented as of this encounter Results * (ABNORMAL) CBC WITH DIFFERENTIAL (04/17/2024 3:07 PM CDT) [facility] WBC 9.5 4.0 - 10.7 x10E9/L 04/17/2024 3:14 PM [facility] RBC Count 5.28(H) 3.90 - 5.20 x10E12/L 04/17/2024 3:14 PM [facility] Hemoglobin 15.2 11.9 - 15.8 g/dL 04/17/2024 3:14 PM [facility] Hematocrit 44.6 34.8 - 46.1 % 04/17/2024 3:14 PM [facility] MCV 84.5 80.0 - 98.0 fL 04/17/2024 3:14 PM [facility] MCH 28.8 26.7 - 33.6 pg 04/17/2024 3:14 PM [facility] MCHC 34.1 31.7 - 36.3 g/dL 04/17/2024 3:14 PM [facility] RDW-CV 14.6 11.3 - 14.8 % 04/17/2024 3:14 PM [facility] Platelet Count 279 150 - 420 x10E9/L 04/17/2024 3:14 PM [facility] MPV 9.4 7.8 - 11.4 fL 04/17/2024 3:14 PM [facility] Neutrophil % 73.6 41.0 - 74.0 % 04/17/2024 3:14 PM [facility] Lymphocyte % 16.9(L) 17.0 - 47.0 % 04/17/2024 3:14 PM CDT [facility] Monocyte % 7.1 3.0 - 11.0 % 04/17/2024 3:14 PM CDT [facility] Eosinophil % 1.8 0.0 - 7.0 % 04/17/2024 3:14 PM T [facility] Basophil % 0.4 0.0 - 1.6 % 04/17/2024 3:14 PM T [facility] Immature Granulocytes % 0.2 0.0 - 1.0 % 04/17/2024 3:14 PM T [facility] Neutrophil Absolute 7.01 1.60 - 7.50 x10E9/L 04/17/2024 3:14 PM [facility] Lymphocyte Absolute 1.61 1.00 - 4.40 x10E9/L 04/17/2024 3:14 PM [facility] Monocyte Absolute 0.68 0.15 - 1.00 x10E9/L 04/17/2024 3:14 PM [facility] Eosinophil Absolute 0.17 0.00 - 0.60 x10E9/L 04/17/2024 3:14 PM [facility] Basophil Absolute 0.04 0.00 - 0.13 x10E9/L 04/17/2024 3:14 PM [facility] Blood BLOOD SPECIMEN / Unknown Lab Venipuncture / Unknown 04/17/2024 3:07 PM CDT 04/17/2024 3:11 PM CDT Remi Beckett MD LAB - HEMATOLOGY ORDERABLES [facility] [address] [place] [address], [facility] [phone] * (ABNORMAL) COMPREHENSIVE METABOLIC PANEL (04/17/2024 3:07 PM CDT) BUN 25 7 - 26 mg/dL 04/17/2024 4:02 PM T [facility] Creatinine 0.73 0.56 - 0.96 mg/dL 04/17/2024 4:02 PM [facility] Sodium 138 136 - 145 mmol/L 04/17/2024 4:02 PM [facility] Potassium 4.2 3.5 - 4.5 mmol/L 04/17/2024 4:02 PM [facility] Chloride 103 98 - 107 mmol/L 04/17/2024 4:02 PM [facility] CO2 23 22 - 29 mmol/L 04/17/2024 4:02 PM [facility] Glucose 95 70 - 115 mg/dL 04/17/2024 4:02 PM [facility] Calcium 9.4 8.4 - 10.2 mg/dL 04/17/2024 4:02 PM [facility] Protein Total 7.5 6.0 - 8.3 g/dL 04/17/2024 4:02 PM [facility] Albumin 3.8 3.4 - 5.0 g/dL 04/17/2024 4:02 PM [facility] Bilirubin Total 0.3 0.2 - 1.2 mg/dL 04/17/2024 4:02 PM [facility] Alkaline Phosphatase 80 40 - 150 U/L 04/17/2024 4:02 PM [facility] ALT 9 5 - 55 U/L 04/17/2024 4:02 PM [facility] AST 16 5 - 34 U/L 04/17/2024 4:02 PM [facility] Anion Gap 12 6 - 16 04/17/2024 4:02 PM [facility] BUN/Creatinine Ratio 34(H) 7 - 23 04/17/2024 4:02 PM [facility] Osmolality Calculated 290 275 - 295 mOsm/kg 04/17/2024 4:02 PM [facility] Albumin/Globulin Ratio 1.0(L) 1.1 - 2.3 04/17/2024 4:02 PM [facility] eGFR by CKD-EPI >90 >=90 mL/min/1.7 3 m2 04/17/2024 4:02 PM [facility] Blood BLOOD SPECIMEN / Unknown Lab Venipuncture / Unknown 04/17/2024 3:07 PM CDT 04/17/2024 3:11 PM CDT Remi Beckett MD LAB - CHEMISTRY ORDERABLES Performing Organization Address City/State/[facility] Co de Phone Number [facility] [address] [place] [address], [facility] [phone] documented in this encounter Visit Diagnoses Diagnosis Papillary carcinoma of thyroid (HCC)- Primary Malignant neoplasm of thyroid gland Encounter for antineoplastic chemotherapy Cancer, metastatic to bone (HCC) Secondary malignant neoplasm of bone and bone marrow Mucositis due to antineoplastic therapy Mucositis (ulcerative) due to antineoplastic therapy documented in this encounter Care Teams Gas Engine Mechanic Relationship Specialty Start Date End Date Yaya Villatoro MD [address] [facility] [address] [place] [phone] PCP - General Internal Medicine 05/04/23 Joseph Manzanares MD [address] [place] [phone] Internal Medicine 04/21/23 documented as of this encounter
--- OUTSIDE RECORDS SUMMARY | 2024-07-23 07:07 | XMS_ITS | Encounter Summary ---
Author Organization [facility] Health Address [address] [place] [address] Care Team Providers Care Director Of Academic Name Role Phone Joseph Manzanares MD Unavailable Yaya Villatoro MD Primary Care Provider +1- [phone] Encounter Details Date Type Department Care Team (Latest Contact Info) Description 03/28/2024 Travel Social History Tobacco Use Types Packs/Day [...] Recorded PHQ2 TOTAL SCORE 1 11/25/2022 [facility] Occupat ional Health [...] st Contact Info) Description 07/25/2024 10:00 AM RAILWAY SIGNAL OPERATOR [facility] - Endocrinology [address] [place] [phone] Yosi Bustamante MD [address] [place] [address] 2L [place] [address] 07/26/2024 10:00 AM RAILWAY SIGNAL OPERATOR Appointment [facility] [address] [place] [address] Neri Delgado MD [address] [place] [address] 07/26/2024 10:00 AM RAILWAY SIGNAL OPERATOR Office Visit [facility] - ENT [address] [place] [phone] Myra Farmer, CIVIL PREPAREDNESS OFFICER [address] [place] [address] 2L [place] [phone] 07/26/2024 11:15 AM RAILWAY SIGNAL OPERATOR Office Visit [facility] - ENT [address] [place] [phone] Neri Delgado MD [address] [place] [address] 08/02/2024 2:20 PM RAILWAY SIGNAL OPERATOR Appointment [facility] [address] [place] [address] 08/02/2024 3:00 PM RAILWAY SIGNAL OPERATOR Office Visit [facility] Physician Group - Hematology/Oncology [address] [place] [phone] Remi Beckett MD [address] [place] [phone] 08/18/2024 1:45 PM RAILWAY SIGNAL OPERATOR Office Visit [facility] - ENT [address] [place] [address] Neri Delgado MD [address] [place] [address] documented as of this encounter Visit Diagnoses Not on filedocumented in this encounter Care Teams Director Of Academic Relationship Specialty Start Date End Date Yaya Villatoro MD [address] [phone] PCP - General Internal Medicine 05/04/23 Joseph Manzanares MD [address] [place] [phone] Internal Medicine 04/21/23 documented as of this encounter
--- OUTSIDE RECORDS SUMMARY | 2024-07-23 07:07 | XMS_ITS | Encounter Summary ---
Author Organization [facility] Health Address [address] [place] [address] Care Team Providers Care Assistant Sales Director Name Role Phone Joseph Manzanares MD Unavailable Yaya Villatoro MD Primary Care Provider +1- [phone] Encounter Details Date Type Department Care Team (Latest Contact Info) Description 02/07/2024 Travel Social History Tobacco Use Types Packs/Day [...] Recorded PHQ2 TOTAL SCORE 1 11/25/2022 [facility] ional Health - Occupational [...] st Contact Info) Description 07/25/2024 10:00 AM DIAMOND DIE MAKER Office [facility] - Endocrinology [address] [place] [phone] Yosi Bustamante MD [address] [place] [address] 2L [place] [address] 07/26/2024 10:00 AM DIAMOND DIE MAKER Appointment [facility] [address] [place] [address] Neri Delgado MD [address] [place] [phone] 07/26/2024 10:00 AM DIAMOND DIE MAKER Office Visit [facility] - ENT [address] [place] [phone] Myra Farmer, CREDENTIALING ASSISTANT [address] [place] [address] 2L [place] [phone] 07/26/2024 11:15 AM DIAMOND DIE MAKER Office Visit [facility] - ENT [address] [place] [phone] Neri Delgado MD [address] [place] [address] 08/02/2024 2:20 PM DIAMOND DIE MAKER Appointment [facility] [address] [place] [address] 08/02/2024 3:00 PM DIAMOND DIE MAKER Office Visit [facility] Physician Group - Hematology/Oncology [address] [place] [phone] Remi Beckett MD [address] [place] [phone] 08/18/2024 1:45 PM DIAMOND DIE MAKER Office Visit [facility] - ENT [address] [place] [address] Neri Delgado MD [address] [place] [address] documented as of this encounter Visit Diagnoses Not on filedocumented in this encounter Care Teams Assistant Sales Director Relationship Specialty Start Date End Date Yaya Villatoro MD [address] [phone] PCP - General Internal Medicine 05/04/23 Joseph Manzanares MD [address] [place] [phone] Internal Medicine 04/21/23 documented as of this encounter
--- OUTSIDE RECORDS SUMMARY | 2024-07-23 07:07 | XMS_ITS | Encounter Summary ---
Author Organization [facility] Health Address [address] [place] [address] Care Team Providers Care Echocardiograph Tech Name Role Phone Joseph Manzanares MD Unavailable Yaya Villatoro MD Primary Care Provider +1- [phone] Encounter Details Date Type Department Care Team (Latest Contact Info) Description 01/24/2024 Travel Social History Tobacco Use Types Packs/Day [...] st Contact Info) Description 07/25/2024 10:00 AM DENTIST PRIVATE PRACTICE [facility] Endocr[facility]ology [address] [place] [phone] Yosi Bustamante MD [address] [place] [address] 2L [place] [address] 07/26/2024 10:00 AM DENTIST PRIVATE PRACTICE Appointment [facility] [address] [place] [address] Neri Delgado MD [address] [place] [address] 07/26/2024 10:00 AM DENTIST PRIVATE PRACTICE Office Visit [facility] - ENT [address] [place] [phone] Myra Farmer, ASSOCIATE PROFESSOR OF MUSIC [address] [place] [address] 2L [place] [phone] 07/26/2024 11:15 AM DENTIST PRIVATE PRACTICE Office Visit [facility] - ENT [address] [place] [phone] Neri Delgado MD [address] [place] [address] 08/02/2024 2:20 PM DENTIST PRIVATE PRACTICE Appointment [facility] [address] [place] [address] 08/02/2024 3:00 PM DENTIST PRIVATE PRACTICE Office Visit [facility] Group - Hematology/Oncology [address] [place] [phone] Remi Beckett MD [address] [place] [phone] 08/18/2024 1:45 PM DENTIST PRIVATE PRACTICE Office Visit [facility] - ENT [address] [place] [address] Neri Delgado MD [address] [place] [address] documented as of this encounter Visit Diagnoses Not on filedocumented in this encounter Care Teams Echocardiograph Tech Relationship Specialty Start Date End Date Yaya Villatoro MD [address] [phone] PCP - General Internal Medicine 05/04/23 Joseph Manzanares MD [address] [place] [phone] Internal Medicine 04/21/23 documented as of this encounter
--- OUTSIDE RECORDS SUMMARY | 2024-07-23 07:07 | XMS_ITS | Encounter Summary ---
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 Cancer, metastatic to bone (HCC) Procedures PET CT WHOLE BODY Marcio Mcintosh MD [address] [place] [address] [facility] Pet Op [address] [place] [address] Referral ID Status Reason Start Date Expiration Date Visits Re quested Visits Authorized [id number] Closed 02/25/2024 05/25/2024 1 1 Encounter Details Date Type Department Care Team (Latest Contact Info) Description 02/25/2024 10:41 AM CDT - 02/25/2024 11:29 AM CDT Hospital Encounter [facility] PET [address] [place] [address] Marcio Mcintosh MD [address] [place] [address] Discharge Disposition: Home or Self [...] Date Recorded PHQ2 TOTAL SCORE 1 11/25/2022 [facility] Occupat ional Health - Occupational [...] naloxone HCl (Narcan) 4 MG/0.1ML nasal spray [place] 1 (one) spray into the nose as [...] st Contact Info) Description 07/25/2024 10:00 AM MANAGER DOMESTIC Office Visit [facility] - Endocrinology [address] [place] [phone] Yosi Bustamante MD [address] [place] [address] 2L [place] [address] 07/26/2024 10:00 AM MANAGER DOMESTIC Appointment [facility] DIAGNO[facility]IC RAD [address] [place] [phone] Neri Delgado MD [address] [place] [address] 07/26/2024 10:00 AM MANAGER DOMESTIC Office Visit [facility] - ENT [address] [place] [phone] Myra Farmer, ZAIN [address] [place] [address] 2L [place] [phone] 07/26/2024 11:15 AM MANAGER DOMESTIC Office Visit [facility] - ENT [address] [place] [phone] Neri Delgado MD [address] [place] [address] 08/02/2024 2:20 PM MANAGER DOMESTIC Appointment [facility] [address] [place] [address] 08/02/2024 3:00 PM MANAGER DOMESTIC Office Visit [facility] - Hematology/Oncology [address] [place] [phone] Remi Beckett MD [address] [place] [phone] 08/18/2024 1:45 PM MANAGER DOMESTIC Office Visit [facility] - ENT [address] [place] [phone] Neri Delgado MD [address] [place] [address] documented as of this encounter Procedures Procedure Name Priority Date/Time Associated Diagnosis Comments PET CT WHOLE BODY Routine 02/25/2024 11: 50 AM CDT Thyroid cancer (CMS/HCC) Metastasis to bone (HCC) Papillary carcinoma of thyroid (HCC) 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 > Dictated by Tex Andrew (Saw Feeder) 02/25/2024 10:45 AM ITiesha DO have personally [...] lung zone. > Dictated by Tex Andrew (Saw Feeder) 02/25/2024 10:45 AM I, Tiesha Sy DO have personally reviewed and interpreted this examination/study. > Interpreting Provider: Tiesha Sy DO on 02/25/2024 4:00 PM Marcio Mcintosh MD [place] ORDERABLES documented in this encounter Visit Diagnoses Not on filedocumented in this encounter Care Teams Emergency Communications Officer Relationship Specialty Start Date End Date Yaya Villatoro MD [address] [phone] PCP - General Internal Medicine 05/04/23 Joseph Manzanares MD [address] [place] [phone] Internal Medicine 04/21/23 documented as of this encounter
--- OUTSIDE RECORDS SUMMARY | 2024-07-23 07:07 | XMS_ITS | Encounter Summary ---
Author Organization [facility] Health Address [address] [place] [address] Care Team Providers Care Licensed Prosthetist/Orthotist Name Role Phone Joseph Manzanares MD Unavailable Yaya Villatoro MD Primary Care Provider +1- [phone] Reason for Visit * Reason Comments Refill Request Encounter Details Date Type Department Care Team (Late st Contact Info) Description 04/11/2024 Refill [facility] - Endocrinology [address] [place] [address], [place] [phone] Yosi Bustamante MD [address] [place] [address] [place] [address] Refill Request Social History Tobacco Use Types [...] Date Recorded PHQ2 TOTAL SCORE 1 11/25/2022 [facility] - [...] st Contact Info) Description 07/25/2024 10:00 AM NONPROFIT DIRECTOR Office Visit [facility] - Endocrinology [address] [place] [phone] Yosi Bustamante MD [address] [place] [address] 2L [place] [address] 07/26/2024 10:00 AM NONPROFIT DIRECTOR Appointment [facility] DIAGNOSTIC RAD [address] [place] [address] Neri Delgado MD [address] [place] [address] 07/26/2024 10:00 AM NONPROFIT DIRECTOR Office Visit [facility] - ENT [address] [place] [phone] Myra Farmer, MAPLE SYRUP MAKER [address] [place] [address] 2L DIV [place] [address] 07/26/2024 11:15 AM NONPROFIT DIRECTOR Office Visit [facility] - ENT [address] [place] [phone] Neri Delgado MD [address] [place] [address] 08/02/2024 2:20 PM NONPROFIT DIRECTOR Appointment [facility] [address] [place] [address] 08/02/2024 3:00 PM NONPROFIT DIRECTOR Office Visit [facility] - Hematology/Oncology [address] [place] [phone] Remi Beckett MD [address] [place] [phone] 08/18/2024 1:45 PM NONPROFIT DIRECTOR Office Visit [facility] - ENT [address] [place] [address] Neri Delgado MD [address] [place] [address] documented as of this encounter Visit Diagnoses Diagnosis Postoperative hypothyroidism Postsurgical hypothyroidism Thyroid cancer (HCC) Malignant neoplasm of thyroid gland Malignant tumor of thyroid gland (HCC) Malignant neoplasm of thyroid gland Cancer, metastatic to bone (HCC) Secondary malignant neoplasm of bone and bone marrow documented in this encounter Care Teams Licensed Prosthetist/Orthotist Relationship Specialty Start Date End Date Yaya Villatoro MD [address] [phone] PCP - General Internal Medicine 05/04/23 Joseph Manzanares MD [address] [place] [phone] Internal Medicine 04/21/23 documented as of this encounter
--- OUTSIDE RECORDS SUMMARY | 2024-07-23 07:07 | XMS_ITS | Encounter Summary ---
Author Organization [facility] Health Address [address] [facility] [place] [address] Care Team Providers Care Inker Machine Name Role Phone Joseph Manzanares MD Unavailable Yaya Villatoro MD Primary Care Provider +1- [phone] Reason for Referral * Radiology Services (Routine) - Authorized Specialty Diagnoses / Procedures Referred By Yuan robins Referred To Contact ENT-Otolaryngology Diagnoses Oropharyngeal dysphagia Procedures FL Swallowing Function Study Neri Delgado MD [address] [place] [address] [facility] [address] [place] [phone] Referral ID Status Reason Start Date Expiration Date V isits Requested Visits Authorized [id number] Authorized 03/13/2024 03/13/2025 1 1 Encounter Details Date Type Department Care Team (Late st Contact Info) Description 03/13/2024 Orders Only [facility] - ENT [address] [place] [phone] Neri Delgado MD [address] [place] [address] Oropharyngeal dysphagia Social History Tobacco Use Types Packs/Day Years [...] Recorded PHQ2 TOTAL SCORE 1 11/25/2022 [facility] - Occupational [...] No 10/02/2022 Housing Stability Vital Sign Answer Loi e Recorded In the last 12 months, [...] Contact Info) Description 07/25/2024 10:00 AM COKE WORKER Office Visit [facility] - Endocrinology [address] [place] [phone] Yosi Bustamante MD [address] [place] [address] [place] [address] 07/26/2024 10:00 AM COKE WORKER Appointment [facility] DIAGNOSTIC RAD [address] [place] [phone] Neri Delgado MD [address] [place] [address] 07/26/2024 10:00 AM COKE WORKER Office Visit [facility] ENT [address] [place] [phone] Myra Farmer, LOGGING TRUCK DRIVER [address] [place] [address] 2L [facility] [place] [address] 07/26/2024 11:15 AM COKE WORKER Office Visit [facility] ENT [address] [place] [phone] Neri Delgado MD [address] [place] [address] 08/02/2024 2:20 PM COKE WORKER Appointment [facility] [address] [place] [address] 08/02/2024 3:00 PM COKE WORKER Office Visit [facility] - Hematology/Oncology [address] [place] [phone] Remi Beckett MD [address] [place] [phone] 08/18/2024 1:45 PM COKE WORKER Office Visit [facility] - ENT [address] [place] [phone] Neri Delgado MD [address] [place] [address] Scheduled Orders Name Type Priority Associated Diagnoses Orde r Schedule FL Swallowing Function Study Imaging Routine Oropharyngeal dysphagia 1 Occurrences starting 03/13/2024 until 03/13/2025 documented as of this encounter Visit Diagnoses Diagnosis Oropharyngeal dysphagia- Primary Dysphagia, oropharyngeal phase documented in this encounter Care Teams Inker Machine Relationship Specialty Start Date End Date Yaya Villatoro MD [address] [place] [phone] PCP - General Internal Medicine 05/04/23 Joseph Manzanares MD [address] [place] [phone] Internal Medicine 04/21/23 documented as of this encounter
--- OUTSIDE RECORDS SUMMARY | 2024-07-23 07:07 | XMS_ITS | Encounter Summary ---
Author Organization [facility] Health Address [address] [facility] [place] [address] Care Team Providers Care President Educational Institution Name Role Phone Joseph Manzanares MD Unavailable Yaya Villatoro MD Primary Care Provider +1- [phone] Reason for Visit * Reason Onset Date Comments Appointment 02/25/2024 See note Encounter Details Date Type Department Care Team (Late st Contact Info) Description 02/25/2024 Telephone [facility] - Hematology/Oncology [address] [place] [address] Delvis Bethea Appointment (See note) Social History Tobacco Use Types Packs/Day Years [...] Date Recorded PHQ2 TOTAL SCORE 1 11/25/2022 [facility]at ional Health - [...] encounter Miscellaneous Notes * Telephone Encounter - Delvis Bethea - 02/25/2024 3:17 PM CDT Attempted call to patient to confirm upcoming appointment with ANIL Tc Benavides for February 29, 2024 at 12:40 pm. Voice mailbox was full nd a message was unable to be left documented in this encounter Plan of Treatment Upcoming Encounters Date Type Department Care Team (Late st Contact Info) Description 07/25/2024 10:00 AM BRIM STITCHER Office Visit [facility] - Endocrinology [address] [place] [phone] Yosi Bustamante MD [address] [place] [address] 2L [place] [address] 07/26/2024 10:00 AM BRIM STITCHER Appointment [facility] DIAGNOSTIC RAD [address] [place] [address] Neri Delgado MD [address] [place] [address] 07/26/2024 10:00 AM BRIM STITCHER Office Visit [facility] - ENT [address] [place] [phone] Myra Farmer, METALLURGICAL ENGINEERING TEACHER [address] [place] [address] 2L [place] [phone] 07/26/2024 11:15 AM BRIM STITCHER Office Visit [facility] - ENT [address] [place] [phone] Neri Delgado MD [address] [place] [address] 08/02/2024 2:20 PM BRIM STITCHER Appointment [facility] [address] [place] [address] 08/02/2024 3:00 PM BRIM STITCHER Office Visit [facility] Group - Hematology/Oncology [address] [place] [phone] Remi Beckett MD [address] [place] [phone] 08/18/2024 1:45 PM BRIM STITCHER Office Visit [facility] Group - ENT [address] [place] [phone] Neri Delgado MD [address] [place] [address] documented as of this encounter Visit Diagnoses Not on filedocumented in this encounter Care Teams President Educational Institution Relationship Specialty Start Date End Date Yaya Villatoro MD [address] [place] [phone] PCP - General Internal Medicine 05/04/23 Joseph Manzanares MD [address] [place] [phone] Internal Medicine 04/21/23 documented as of this encounter
--- OUTSIDE RECORDS SUMMARY | 2024-07-23 07:07 | XMS_ITS | Encounter Summary ---
Author Organization [facility] Health Address [address] [place] [address] Care Team Providers Care Solar Crew Member Name Role Phone Joseph Manzanares MD Unavailable Yaya Villatoro MD Primary Care Provider +1- [phone] Encounter Details Date Type Department Care Team (Latest Contact Info) Description 01/18/2024 Travel Social History Tobacco Use Types Packs/Day [...] st Contact Info) Description 07/25/2024 10:00 AM SLIP COVER CUTTER Office Visit [facility] - Endocrinology [address] [place] [phone] Yosi Bustamante MD [address] [place] [address] 2L [place] [address] 07/26/2024 10:00 AM SLIP COVER CUTTER Appointment [facility] DIAGNOSTIC RAD [address] [place] [address] Neri Delgado MD [address] [place] [address] 07/26/2024 10:00 AM SLIP COVER CUTTER Office Visit [facility] - ENT [address] [place] [phone] Myra Farmer, KENO CLERK [address] [place] [address] 2L [place] [phone] 07/26/2024 11:15 AM SLIP COVER CUTTER Office Visit [facility] - ENT [address] [place] [phone] Neri Delgado MD [address] [place] [address] 08/02/2024 2:20 PM SLIP COVER CUTTER Appointment [facility]ION CENTER [address] [place] [address] 08/02/2024 3:00 PM SLIP COVER CUTTER Office Visit [facility] Group - Hematology/Oncology [address] [place] [phone] Remi Beckett MD [address] [place] [phone] 08/18/2024 1:45 PM SLIP COVER CUTTER Office Visit [facility] - ENT [address] [place] [address] Neri Delgado MD [address] [place] [address] documented as of this encounter Visit Diagnoses Not on filedocumented in this encounter Care Teams Solar Crew Member Relationship Specialty Start Date End Date Yaya Villatoro MD [address] [phone] PCP - General Internal Medicine 05/04/23 Joseph Manzanares MD [address] [place] [phone] Internal Medicine 04/21/23 documented as of this encounter
--- OUTSIDE RECORDS SUMMARY | 2024-07-23 07:07 | XMS_ITS | Encounter Summary ---
Author Organization [facility] Health Address [address] [facility] [place] [address] Care Team Providers Care Band Lining Bander Name Role Phone Joseph Manzanares MD Unavailable Yaya Villatoro MD Primary Care Provider +1- [phone] Reason for Visit * Reason Onset Date Comments Appointment 02/29/2024 Encounter Details Date Type Department Care Team (Late st Contact Info) Description 02/29/2024 Telephone [facility] ONC [address] [place] [address] Alize French, JOSY Appointment Social History Tobacco Use Types Packs/Day Years [...] 1 11/25/2022 [facility] - Occupational Stress Questionnaire Answer Date [...] place to sleep or slept in a usp (including now)? No 10/02/2022 Sex and Gender [...] encounter Miscellaneous Notes * Telephone Encounter - Alize French RN - 02/29/2024 11:58 AM CDT The patient called, stated her transportation canceled for today. Coordinated and informed of her rescheduled appointment date and time. documented in this encounter Plan of Treatment Upcoming Encounters Date Type Department Care Team (Late st Contact Info) Description 07/25/2024 10:00 AM RENEWALS SPECIALIST Office Visit [facility] - Endocrinology [address] [place] [phone] Yosi Bustamante MD [address] [place] [address] 2L [place] [address] 07/26/2024 10:00 AM RENEWALS SPECIALIST Appointment [facility] DIAGNOSTIC RAD [address] [place] [address] Neri Delgado MD [address] [place] [address] 07/26/2024 10:00 AM RENEWALS SPECIALIST Office Visit [facility] - ENT [address] [place] [phone] Myra Farmer, HANGER OFF [address] [place] [address] 2L [place] [phone] 07/26/2024 11:15 AM RENEWALS SPECIALIST Office Visit [facility] - ENT [address] [place] [phone] Neri Delgado MD [address] [place] [address] 08/02/2024 2:20 PM RENEWALS SPECIALIST Appointment [facility] C[facility] [address] [place] [address] 08/02/2024 3:00 PM RENEWALS SPECIALIST Office Visit [facility] Group - Hematology/Oncology [address] [place] [phone] [place] [address] [place] [phone] 08/18/2024 1:45 PM RENEWALS SPECIALIST Office Visit [facility] Group - ENT [address] [place] [phone] Neri Delgado MD [address] [place] [address] documented as of this encounter Visit Diagnoses Not on filedocumented in this encounter Care Teams Band Lining Bander Relationship Specialty Start Date End Date Yaya Villatoro MD [address] [place] [phone] PCP - General Internal Medicine 05/04/23 Joseph Manzanares MD [address] [place] [phone] Internal Medicine 04/21/23 documented as of this encounter
--- OUTSIDE RECORDS SUMMARY | 2024-07-23 07:07 | XMS_ITS | Encounter Summary ---
Author Organization [facility] Health Address [address] [facility] [address] Care Team Providers Care Laborer Wharf Name Role Phone Joseph Manzanares MD Unavailable Yaya Villatoro MD Primary Care Provider +1- [phone] Reason for Visit * Reason Onset Date Comments Medication Prior Auth Request 12/27/2023 Encounter Details Date Type Department Care Team (Late st Contact Info) Description 12/27/2023 Telephone [facility] - Hematology/Oncology [address] [place] [address] Remi Beckett MD [address] [place] [address] Medication Prior Auth Request Social [...] Recorded PHQ2 TOTAL SCORE 1 11/25/2022 [facility] of Occupat ional Health - Occupational [...] as of this encounter Progress Notes * Radha Whiteside RPhT - 12/27/2023 9:01 AM CDT Medication Prior Authorization: Medication: Lenvima 24mg Status: Approved 12/24/2023 through 12/24/2023 Submitted via: Cover My Meds ([place]: [id number]) Insurance: [employer] (Med[employer]act) (p: [phone]) (f: [phone]) Case/Reference number: ID: [id number] RX Card Billing Info: BIN: [id number] PCN: [id number] GROUP: [id number] ID: [id number] Patient name on RX card Brisa Walters. Had to submit PA as such. documented in this encounter Plan of Treatment Upcoming Encounters Date Type Department Care Team (Late st Contact Info) Description 07/25/2024 10:00 AM J2EE ENGINEER [facility] [address] [place] [phone] Yosi Bustamante MD [address] [place] [address] [place] [address] 07/26/2024 10:00 AM J2EE ENGINEER Appointment [facility] DIAGNOSTIC RAD [address] [place] [phone] Neri Delgado MD [address] [place] [address] 07/26/2024 10:00 AM J2EE ENGINEER Office Visit [facility] - ENT [address] [place] [phone] Myra Farmer, MOTION PICTURE CAMERA OPERATOR [address] [place] [address] [place] [phone] 07/26/2024 11:15 AM J2EE ENGINEER Office Visit [facility] - ENT [address] [place] [phone] Neri Delgado MD [address] [place] [address] 08/02/2024 2:20 PM J2EE ENGINEER Appointment [facility] [address] [place] [address] 08/02/2024 3:00 PM J2EE ENGINEER Office Visit [facility] Physician Group - Hematology/Oncology [address] [place] [phone] Remi Beckett MD [address] [place] [phone] 08/18/2024 1:45 PM J2EE ENGINEER Office [facility] [address] [place] [phone] Neri Delgado MD [address] [place] [address] documented as of this encounter Visit Diagnoses Not on filedocumented in this encounter Care Teams Laborer Wharf Relationship Specialty Start Date End Date Yaya Villatoro MD [address] [place] [phone] PCP - General Internal Medicine 05/04/23 Joseph Manzanares MD [address] [place] [phone] Internal Medicine 04/21/23 documented as of this encounter
--- OUTSIDE RECORDS SUMMARY | 2024-07-23 07:07 | XMS_ITS | Encounter Summary ---
Author Organization [facility] Health Address [address] [facility] [facility] [place] [address] Care Team Providers Care Disaster Recovery Analyst Name Role Phone Joseph Manzanares MD Unavailable Yaya Villatoro MD Primary Care Provider +1- [phone] Encounter Details Date Type Department Care Team (Latest Contact Info) Description 04/11/2024 Travel Social History Tobacco Use Types Packs/Day [...] st Contact Info) Description 07/25/2024 10:00 AM OIL ANALYST [facility] [address] [place] [phone] Yosi Bustamante MD [address] [place] [address] 2L [place] [address] 07/26/2024 10:00 AM OIL ANALYST Appointment [facility] DIAGNOSTIC RAD [address] [place] [address] Neri Delgado MD [address] [place] [address] 07/26/2024 10:00 AM OIL ANALYST Office Visit [facility] - ENT [address] [place] [phone] Myra Farmer, PUMP PRESS OPERATOR [address] [place] [address] 2L [place] [phone] 07/26/2024 11:15 AM OIL ANALYST Office Visit [facility] - ENT [address] [place] [phone] Neri Delgado MD [address] [place] [address] 08/02/2024 2:20 PM OIL ANALYST Appointment [facility] [address] [place] [address] 08/02/2024 3:00 PM OIL ANALYST Office Visit [facility] Physician Group - Hematology/Oncology [address] [place] [phone] Remi Beckett MD [address] [place] [phone] 08/18/2024 1:45 PM OIL ANALYST Office Visit [facility] - [facility]NT [address] [place] [address] Neri Delgado MD [address] [place] [address] documented as of this encounter Visit Diagnoses Not on filedocumented in this encounter Care Teams Disaster Recovery Analyst Relationship Specialty Start Date End Date Yaya Villatoro MD [address] [phone] PCP - General Internal Medicine 05/04/23 Joseph Manzanares MD [address] [place] [phone] Internal Medicine 04/21/23 documented as of this encounter
--- OUTSIDE RECORDS SUMMARY | 2024-07-23 07:08 | XMS_ITS | Encounter Summary ---
Author Organization [facility] Health Address [address] [facility] [place] [address] Care Team Providers Care Certified Coder Name Role Phone Joseph Manzanares MD Unavailable Yaya Villatoro MD Primary Care Provider +1- [phone] Reason for Visit * Reason Onset Date Comments Question 10/28/2023 Encounter Details Date Type Department Care Team (Late st Contact Info) Description 10/28/2023 Telephone [facility] - ENT [address] [place] [phone] Radha Joel, JOSY Question Social History Tobacco Use Types Packs/Day Years [...] 1 11/25/2022 [facility] Occupat ional [facility] - Occupational Stress Questionnaire Answer Date Recorded [...] Miscellaneous Notes * Telephone Encounter - Radha Joel RN - 10/28/2023 11:47 AM CDT Updated patient, as per Dr. 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 I'm happy to see if needed but may just need some time to recover. Discussed that we will wait to see what radiation says and if she needs appointment with Dr. Delgado she will call. Radha * Telephone Encounter - Radha Joel RN - 10/28/2023 10:57 AM CDT Patient calls asking for appointment with Dr. Delgado. Completed radiation on neck Wednesday. Since last week: Very sore throat and cannot talk. Voice is quiet, strained, & hoarse. Hurts to swallow, cold liquids hurts it. Coffee used to sooth it but now it's making it burn. Coughing, expectorates- scant clear/howell sputum. Taking lozenges to help but doesn't soothe her back of throat. Feels she cannot always get enough air in. Her inhaler (albuterol) helps temporarily. Dyspnea can be intermittent. Endorses she is not so short of breath she will pass out, she is able to get around her home fine. She was not audibly short of breath. She was able to speak in full sentences. Instructed if she felt she could not breath/struggling to call 911/go to ER. She verbalized understanding. She has not yet spoken with radiation therapy. Discussed symptoms can occur from radiation but she should speak to them. She would like me to send message for her, as talking hurts and she is trying not to strain her vocal cord. She is aware I will route message to Alize French RN, Dr. Mcintosh, and Dr. Delgado for recommendations. documented in this encounter Plan of Treatment Upcoming Encounters Date Type Department Care Team (Late st Contact Info) Description 07/25/2024 10:00 AM FELT CHECKER Office Visit [facility] - Endocrinology [address] [place] [phone] Yosi Bustamante MD [address] [place] [address] 2L [place] [address] 07/26/2024 10:00 AM FELT CHECKER Appointment [facility] [address] [place] [address] Neri Delgado MD [address] [place] [address] 07/26/2024 10:00 AM FELT CHECKER [facility] [address] [place] [phone] Myra Farmer, SR. OPERATIONS MANAGER [address] [place] [address] 2L [place] [phone] 07/26/2024 11:15 AM FELT CHECKER Office Visit [facility] - ENT [address] [place] [phone] Neri Delgado MD [address] [place] [address] 08/02/2024 2:20 PM FELT CHECKER Appointment [facility] [address] [place] [phone] 08/02/2024 3:00 PM FELT CHECKER Office Visit [facility] - Hematology/Oncology [address] [place] [phone] Remi Beckett MD [address] [place] [phone] 08/18/2024 1:45 PM FELT CHECKER Office Visit [facility] - [facility]NT [address] [place] [address] Neri Delgado MD [facility] [place] [address] documented as of this encounter Visit Diagnoses Not on filedocumented in this encounter Care Teams Certified Coder Relationship Specialty Start Date End Date Yaya Villatoro MD [address] [phone] PCP - General Internal Medicine 05/04/23 Joseph Manzanares MD [address] [place] [phone] Internal Medicine 04/21/23 documented as of this encounter
--- OUTSIDE RECORDS SUMMARY | 2024-07-23 07:08 | XMS_ITS | Encounter Summary ---
Author Organization [facility] Health Address [address] [address] Care Team Providers Care Medical Records Tech Name Role Phone Joseph Manzanares MD Unavailable Yaya Villatoro MD Primary Care Provider +1- [phone] Encounter Details Date Type Department Care Team (Latest Contact Info) Description 11/05/2023 Travel Social History Tobacco Use Types Packs/Day [...] st Contact Info) Description 07/25/2024 10:00 AM SUPERVISOR CHLORINE LIQUEFACTION [facility] Endocr[facility]ology [address] [place] [phone] Yosi Bustamante MD [address] [place] [address] 2L [place] [address] 07/26/2024 10:00 AM SUPERVISOR CHLORINE LIQUEFACTION Appointment [facility] [address] [place] [address] Neri Delgado MD [address] [place] [address] 07/26/2024 10:00 AM SUPERVISOR CHLORINE LIQUEFACTION Office Visit [facility] - ENT [address] [place] [phone] Myra Farmer, FILM NUMBERER [address] [place] [address] 2L [place] [phone] 07/26/2024 11:15 AM SUPERVISOR CHLORINE LIQUEFACTION Office Visit [facility] - ENT [address] [place] [phone] Neri Delgado MD [address] [place] [address] 08/02/2024 2:20 PM SUPERVISOR CHLORINE LIQUEFACTION Appointment [facility] [address] [place] [address] 08/02/2024 3:00 PM SUPERVISOR CHLORINE LIQUEFACTION Office Visit [facility] - Hematology/Oncology [address] [place] [phone] Remi Beckett MD [address] [place] [phone] 08/18/2024 1:45 PM SUPERVISOR CHLORINE LIQUEFACTION Office Visit [facility] - [facility]NT [address] [place] [address] Neri Delgado MD [address] [place] [address] documented as of this encounter Visit Diagnoses Not on filedocumented in this encounter Care Teams Medical Records Tech Relationship Specialty Start Date End Date Yaya Villatoro MD [address] [phone] PCP - General Internal Medicine 05/04/23 Joseph Manzanares MD [address] [place] [phone] Internal Medicine 04/21/23 documented as of this encounter
--- OUTSIDE RECORDS SUMMARY | 2024-07-23 07:08 | XMS_ITS | Encounter Summary ---
Author Organization [facility] Health Address [address] [facility] [place] [address] Care Team Providers Care Professor Of Apologetics Name Role Phone Joseph Manzanares MD Unavailable Yaya Villatoro MD Primary Care Provider [phone]- [phone] Encounter Details Date Type Department Care Team (Latest Contact Info) Description 10/21/2023 11:00 AM CDT - 10/21/2023 2:44 PM CDT Hospital Encounter [facility] [place], [place] [phone] Marcio Mcintosh MD [facility] [place] [address] Discharge Disposition: Home or Self [...] Date Recorded PHQ2 TOTAL SCORE 1 11/25/2022 [facility] [place] of Occupat ional Health - Occupational Stress [...] Date End Date atorvastatin (Lipitor) 40 MG tabletIndications:Hyp erlipidemia, unspecified hyperlipidemia type TAKE 1 TABLET BY MOUTH EVERYDAY AT BEDTIME 90 tablet 1 04/21/2023 buPROPion SR 12hr (Wellbutrin-SR) 100 MG tablet Take 1 (one) tablet by mouth 2 times daily 08/28/2022 calcitriol (Rocaltrol) 0.5 MCG capsuleIndications:Hy pocalcemia Take 1 (one) capsule by mouth once daily Reasons: Low Amount of Calcium in the Blood 90 capsule 3 06/14/2023 celecoxib (CeleBREX) 200 MG capsuleIndications:Pr imary osteoarthritis of left hip Take 1 (one) capsule by mouth once daily 90 capsule 3 10/27/2022 cyclobenzaprine (Flexeril) 5 MG tablet Take 1 (one) tablet by mouth 3 times daily as needed 90 tablet 1 11/19/2022 famotidine (PEPCID) 20 MG tablet Take 1 (one) tablet by mouth 2 times daily as needed 05/27/2020 fluticasone propionate (Flonase) 50 MCG/ACT nasal sprayIndications:Barron rgic rhinitis, unspecified seasonality, unspecified trigger SPRAY 2 SPRAYS INTO EACH NOSTRIL EVERY DAY 16 g 1 06/01/2023 gabapentin (Neurontin) 300 MG capsuleIndications:Pr imary osteoarthritis of left hip Take 1 (one) capsule by mouth 3 times daily 90 capsule 5 11/19/2022 hydrOXYzine HCl (Atarax) 25 MG tablet Take 1 (one) tablet to 2 (two) tablets by mouth as needed 07/15/2023 naloxone HCl (Narcan) 4 MG/0.1ML nasal spray [place] 1 (one) spray into the nose as needed oxybutynin CR 24hr (Ditropan-XL) 5 MG tablet Take 1 (one) tablet by mouth once daily 90 tablet 4 06/10/2022 pantoprazole EC (Protonix) 40 MG tabletIndications:Gas troesophageal reflux disease, unspecified whether esophagitis present TAKE ONE TABLET BY MOUTH ONCE DAILY FOR STOMACH 90 tablet 02/03/2023 PARoxetine (PAXIL) 40 MG tablet Take 1 (one) tablet by mouth once daily 2 11/14/2016 traZODone (DESYREL) 50 MG tablet Take 1 (one) tablet by mouth at bedtime 06/25/2020 albuterol HFA (Proventil; Ventolin; Proair) 108 (90 Base) MCG/ACT inhaler Inhale 2 (two) puffs by mouth every 6 hours as needed 08/02/2023 01/24/2024 denosumab (Prolia) 60 MG/ML SC injectionIndications: Thyroid cancer (HCC) Inject 1 mL subcutaneously once for 1 dose 1 mL 06/14/2023 10/25/2023 HYDROcodone-acetamino phen ([place]) 5-325 MG tabletIndications:Cer vical spine tumor,Cancer, metastatic to bone (HCC),Thyroid cancer (HCC),Malignant tumor of thyroid gland (HCC),Secondary malignant neoplasm of bone (HCC) Take 1 (one) tablet by mouth every 8 hours as needed for Pain 12 tablet 10/20/2023 11/04/2023 levothyroxine (Synthroid) 112 MCG tabletIndications:Hyp othyroidism,Malignant Neoplasm of Thyroid Take 1 (one) tablet by mouth daily before breakfast Except Wednesday take one and a half pills Reasons: Cancer of Thyroid, Underactive Thyroid 100 tablet 3 06/14/2023 10/25/2023 documented as of this encounter Plan of Treatment Upcoming Encounters Date Type Department Care Team (Late st Contact Info) Description 07/25/2024 10:00 AM SOLAR SALES ADVISOR Office Visit [facility] - Endocrinology [address] [facility] [place] [address] Yosi Bustamante MD [address] [place] [address] [place] [address] 07/26/2024 10:00 AM SOLAR SALES ADVISOR Appointment [facility] [address] [place] [address] Neri Delgado MD [address] [place] [address] 07/26/2024 10:00 AM SOLAR SALES ADVISOR Office Visit [facility] - ENT [address] [place] [place] [phone] Myra Farmer, DIRECTOR OF EVENTS [address] [place] [address] [place] [phone] 07/26/2024 11:15 AM SOLAR SALES ADVISOR Office Visit [facility] - ENT [address] [place] [place] [phone] Neri Delgado MD [address] [place] [address] 08/02/2024 2:20 PM SOLAR SALES ADVISOR Appointment [facility] [address] [place] [address] 08/02/2024 3:00 PM SOLAR SALES ADVISOR Office Visit [facility] - Hematology/Oncology [address] [place] [phone] Remi Beckett MD [address] [place] [phone] 08/18/2024 1:45 PM SOLAR SALES ADVISOR Office Visit [facility] ENT [address] [place] [place] [phone] Neri Delgado MD [address] [place] [address] documented as of this encounter Visit Diagnoses Not on filedocumented in this encounter Care Teams Professor Of Apologetics Relationship Specialty Start Date End Date Yaya Villatoro MD [address] [place] [phone] PCP - General Internal Medicine 05/04/23 Joseph Manzanares MD [address] [place] [phone] Internal Medicine 04/21/23 documented as of this encounter
--- OUTSIDE RECORDS SUMMARY | 2024-07-23 07:08 | XMS_ITS | Encounter Summary ---
Author Organization [facility] Address [address] [facility] [place] [address] Care Team Providers Care Manufacturing Engineering Professor Name Role Phone Joseph Manzanares MD Unavailable Yaya Villatoro MD Primary Care Provider +1- [phone] Reason for Visit * Reason Onset Date Comments Appointment 12/03/2023 See note Encounter Details Date Type Department Care Team (Late Contact Info) Description 12/03/2023 Telephone [facility] - Hematology/Oncology [address] [place] [phone] Delvis Bethea Appointment (See note) [...] Date Recorded PHQ2 TOTAL SCORE 1 11/25/2022 [facility] Occupat ional Health - [...] * Telephone Encounter - Delvis Bethea - 12/03/2023 2:22 PM CDT 12/03/2023 Called and left voice message for patient to call office to reschedule missed office visit with for December 02, 2023. Notes 4 week f/u documented in this encounter Plan of Treatment Upcoming Encounters Date Type Department Care Team (Late st Contact Info) Description 07/25/2024 10:00 AM PLACEMENT ASSISTANT Office Visit [facility] - Endocrinology [address] [place] [phone] Yosi Bustamante MD [address] [place] [address] 2L [place] [address] 07/26/2024 10:00 AM PLACEMENT ASSISTANT Appointment [facility] [address] [place] [address] Neri Delgado MD [address] [place] [address] 07/26/2024 10:00 AM PLACEMENT ASSISTANT Office Visit [facility] - ENT [address] [place] [phone] Myra Farmer, GENERAL STORE MANAGER [address] [place] [address] 2L [place] [address] 07/26/2024 11:15 AM PLACEMENT ASSISTANT Office Visit [facility] [address] [place] [phone] Neri Delgado MD [address] [place] [address] 08/02/2024 2:20 PM PLACEMENT ASSISTANT Appointment [facility] [address] [place] [address] 08/02/2024 3:00 PM PLACEMENT ASSISTANT Office Visit [facility] - Hematology/Oncology [address] [place] [phone] Remi Beckett MD [address] [place] [phone] 08/18/2024 1:45 PM PLACEMENT ASSISTANT Office Visit [facility] - ENT [address] [place] [phone] Neri Delgado MD [address] [place] [address] documented as of this encounter Visit Diagnoses Not on filedocumented in this encounter Care Teams Manufacturing Engineering Professor Relationship Specialty Start Date End Date Yaya Villatoro MD [address] [place] [phone] PCP - General Internal Medicine 05/04/23 Joseph Manzanares MD [address] [place] [phone] Internal Medicine 04/21/23 documented as of this encounter
--- OUTSIDE RECORDS SUMMARY | 2024-07-23 07:08 | XMS_ITS | Encounter Summary ---
Author Organization [facility] Health Address [address] [facility] [place] [address] Care Team Providers Care Walnut Dehydrator Operator Name Role Phone Joseph Manzanares MD Unavailable Yaya Villatoro MD Primary Care Provider +1- [phone] Encounter Details Date Type Department Care Team (Latest Contact Info) Description 12/10/2023 Travel Social History Tobacco Use Types Packs/Day [...] PHQ2 TOTAL SCORE 1 11/25/2022 [facility] of Occupat ional [...] st Contact Info) Description 07/25/2024 10:00 AM CONSULTING PSYCHIATRIST [facility] End[facility] [address] [place] [phone] Yosi Bustamante MD [address] [place] [address] 2L [place] [address] 07/26/2024 10:00 AM CONSULTING PSYCHIATRIST Appointment [facility] [address] [place] [address] Neri Delgado MD [address] [place] [address] 07/26/2024 10:00 AM CONSULTING PSYCHIATRIST Office Visit [facility] - ENT [address] [place] [phone] Myra Farmer, STREET CAR INSPECTOR [address] [place] [address] 2L [place] [phone] 07/26/2024 11:15 AM CONSULTING PSYCHIATRIST Office Visit [facility]NT [address] [place] [phone] Neri Delgado MD [address] [place] [address] 08/02/2024 2:20 PM CONSULTING PSYCHIATRIST Appointment [facility] [address] [place] [address] 08/02/2024 3:00 PM CONSULTING PSYCHIATRIST Office Visit [facility] - Hematology/Oncology [address] [place] [phone] Remi Beckett MD [address] [place] [phone] 08/18/2024 1:45 PM CONSULTING PSYCHIATRIST Office Visit [facility] [address] [place] [phone] Neri Delgado MD [address] [place] [address] documented as of this encounter Visit Diagnoses Not on filedocumented in this encounter Care Teams Walnut Dehydrator Operator Relationship Specialty Start Date End Date Yaya Villatoro MD [address] [phone] PCP - General Internal Medicine 05/04/23 Joseph Manzanares MD [address] [place] [phone] Internal Medicine 04/21/23 documented as of this encounter
--- OUTSIDE RECORDS SUMMARY | 2024-07-23 07:08 | XMS_ITS | Encounter Summary ---
Author Organization [facility] Health Address [address] [facility] [place] [address] Care Team Providers Care Affirmative Action Officer Name Role Phone Joseph Manzanares MD Unavailable Yaya Villatoro MD Primary Care Provider +1- [phone] Encounter Details Date Type Department Care Team (Latest Contact Info) Description 11/04/2023 12:15 PM CDT - 11/04/2023 11:59 PM CDT Hospital Encounter [facility] [place], [place] [phone] Marcio Mcintosh MD [address] [place], [place] [phone] Discharge Disposition: Home or Self Care Social [...] Date Recorded PHQ2 TOTAL SCORE 1 11/25/2022 [facility] of Occupat ional Health - Occupational Stress [...] Sign Reading Time Taken Comments Blood Pressure 118/68 11/04/2023 12:45 PM CDT Pulse 85 11/04/2023 12:45 PM CDT Temperature 36.6 ??C (97.8 ??F) 11/04/2023 12:45 PM C DT Respiratory Rate 18 11/04/2023 12:45 PM CDT Oxygen Saturation 97% 11/04/2023 12:45 PM CDT Inhaled Oxygen Concentration - - Weight 61.5 kg (135 lb 9.6 oz) 11/04/2023 12:45 PM CDT Height - - Body Mass Index 25.94 10/21/2023 1:17 PM CDT documented in this encounter Functional [...] No 10/02/2022 documented as of this encounter Discharge Instructions * Patient Instructions* Alize French RN - 11/04/2023 1:05 PM CDT MRI 11/22/1013 @ 530 pm documented in this encounter Medications at Time of Discharge [...] naloxone HCl (Narcan) 4 MG/0.1ML nasal spray Colby 1 (one) spray into the nose as [...] 180 days 1 mL 2 10/25/2023 4 documented as of this encounter Progress Notes * Marcio Mcintosh MD - 11/04/2023 11:59 PM CDT Images from the original note were not included. Return Patient Visit Department of Radiation Oncology [facility] ENCOUNTER DATE: 11/04/2023 PATIENT IDENTIFICATION Brisa Hogan 1960 Autopopulated Data Chief Complaint: No chief complaint on file. Diagnosis: 1. Cervical spine tumor 2. Metastasis to bone (HCC) 3. Papillary carcinoma of thyroid (HCC) CC: Follow up Diagnosis: Metastatic thyroid cancer to C spine, stage TxNxM1, s/p Resection of primary thyroid andRAI of 157.6mCi SBRT To Cervical spine s/p 2400cGy in 2 fractions ending on 09/21/2022 Multiple site progression at the C1- T2 region., s/p 2000-3000cGy in 5 fractions ending on 10/22/2023 Referring MD: Carton Forming Machine Helper: Yosi Bustamante MD ENT Surgeon: Neri Delgado [...] 5 mm. She underwent palliative radiotherapy with 4595-4756 cGy in 5 fractions delivered via IMRT to the C2 through T1 T2 region. She tolerated well and noted no progression of neurologic symptoms. SUBJECTIVE/HPI: Ms. Brisa Hogan is a 63 year old female who returns for a follow up visit. Since our last visit, Brisa has returned with progressive sore throat. She feels it is mostly located near her tonsil and has even gotten to notice temperature changes in food and more difficulties with solid food. She is continuing to bring up clear mucus and has not had neurologic progression. She does have some difficulty closing her right hand and continues to ambulate with a walker recognizing some pains radiating from her neck to her arms/shoulder. She denies any issues with bowels or urination. REVIEW OF SYSTEMS: GENERAL: Denies Headaches, nausea, vomiting PULMONARY: Denies cough or worsened shortness of breath NEUROLOGIC: Denies new neurologic deficit or weakness/loss of motion in arms or legs I have also reviewed the nursing assessment flowsheet below: Radiation Oncology Nursing Assessement 11/04/2023 Education: Karnofsky ECOG Score: Karnofsky ECOG Score: [place] 90-Able to carry on normal activity, minor signs or symptoms of disease, ECOG 0-Fully active, able to carry on all pre-disease activities with restriction Treatment Sites: System Assessment: Pain: Pain: Yes (Deep throat pain around tonsil # 5 intensity) Nausea: Nausea: No Fatigue: Fatigue: Yes (Fluctuate) Sleep: Sleep: No Mobility: Mobility: Yes (Ambulate with walker. Can't close R hand) Bathing/Dressing: Bathing/Dressing: Yes (Requires assistance) Breathing: Breathing: Yes (Coughing up clear mucus. Notice SOB in morning when first get up r/t feeling of throat close) Mouth Sores: Mouth Sores: No Eating: Eating: Yes (Drinks must be room temperature, Trouble with swallowing solid food, r/t sore throat. Ensure 2x/D) Indigestion: Indigestion: No Constipation: Constipation: No Diarrhea: Diarrhea: No (Episode 1 wk ago, 5- 6x during night, sm amt of incontinence on brief. Resolved with diet change, clear liquid to ensure) Changes in Urination: Changes in urination: No Fevers: Fevers: No Skin Dry/Itchy: Skin dry/itchy: Yes (Bruising noted of R arm) Nasal: Nasal: No Hands/Feet: Tingling in hands/feet: Yes (Numbness R arm and hand. Slight numbness fingertips of L hand) Memory/Concentration: Memory/concentation: No Swelling: Swelling: No Appearance: Appearance: No Sexual: Mucous Membrances: Eye: [...] mass MEDICATIONS: Current Outpatient Medications Medication Sig albuterol HFA (Proventil; Ventolin; Proair) 108 (90 [...] once daily (Patient not taking: Reported on 11/04/2023) cyclobenzaprine (Flexeril) 5 MG tablet Take 1 [...] (four) tablets by mouth 2 times daily levothyroxine (Synthroid) 112 MCG tablet Take 1 (one) tablet by mouth daily before breakfast Reasons: Cancer of Thyroid, Underactive Thyroid naloxone HCl (Narcan) 4 MG/0.1ML nasal spray Colby 1 (one) spray into the nose as needed oxybutynin CR 24hr (Ditropan-XL) 5 MG tablet Take 1 (one) tablet by mouth once daily pantoprazole EC (Protonix) 40 MG tablet TAKE ONE TABLET BY MOUTH ONCE DAILY FOR STOMACH PARoxetine (PAXIL) 40 MG tablet Take 1 (one) tablet by mouth once daily traZODone (DESYREL) 50 MG tablet Take 1 (one) tablet by mouth at bedtime No current facility-administered medications for this encounter. OBJECTIVE: Vitals: 11/04/23 1245 BP: 118/68 Pulse: 85 Resp: 18 Temp: 97.8 ??F SpO2: 97% Weight: 61.5 kg (135 lb 9.6 oz) PainSc: Five PainLoc: Throat Wt Readings from Last 3 Encounters: 11/04/23 61.5 kg (135 lb 9.6 oz) 11/04/23 61.7 kg (136 lb 1.6 oz) 10/25/23 63 kg (139 lb) KPS is 70 General Appearance: in no apparent distress and well developed and well nourished HEENT: Normocephalic, atraumatic neck without nodes and throat normal without erythema or exudate Lymph: No adenopathy of the cervical or supraclavicular fossa palpable Extremities:extremities normal, atraumatic, no cyanosis or edema Neurological exam reveals alert, oriented, normal speech, no focal findings or movement disorder noted, motor and sensory grossly normal bilaterally, abnormal findings: decreased sensation in the right and left hands, but unable to close right hand.. RADIOGRAPHIC IMAGES: MRI BRAIN WWO CONTRAST Result Date: 11/08/2023 IMPRESSION: 1. No evidence of brain metastases. 2. 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 > Interpreting Provider: William Qiu MD on 11/08/2023 2:[address] WHOLE BODY Result Date: 10/06/2023 IMPRESSION: 1.Postoperative changes of a C2-T2 posterior instrument spinal fusion. Multifocal areasof FDG activity in the cervical spine and within the T1 vertebral body correlate with MRI findings and are compatible with metastasis. 2.Small focus of FDG activity within the right thyroidectomy bedis concerning for disease recurrence. 3.There is a 5 mm right lower lobe pulmonary nodule without significant FDG uptake which is too small to characterize. Recommend continued follow-up. Report dictated by Froylan Ny DO (residential insurance inspector). > Dictated by Froylan Ny DO (Dental Laboratory Technician) 10/06/2023 3:25 PM ITiesha DO have personally reviewed and interpreted this examinati on/study. > Interpreting Provider: Tiesha Sy DO on 10/06/2023 5:11 PM MRI CERVICAL SPINE WWO CONT Result Date: 10/01/2023 IMPRESSION: 1.Redemonstration of postoperative findings of C3-C7 decompressive laminectomy for partial resection of the extramedullary tumor, and C2-T2 posterior instrumented fusion, with postsurgical changes as outlined above. 2. Interval development of new marrow replacing lesions involving T1 vertebral body body, posterior aspect of C4 vertebral body, dens of C2 vertebral body suggesting progression/new metastatic lesions. There is also associated interval development of ventral epidural extension of the tumor through the levels of C4- C5 to T1-T2 inferiorly and associated ventral effacement of the CSF space/moderate central canal stenosis through the levels of C5-C6 to C7-T1 inferiorly. 3.There is also interval new enhancing soft tissue in the left C4-C5 neural foramina. Residual soft tissue enhancing lesions in the left C5-C6 neural foramina, left C6-C7 neural foramina also involving the osseous involvement of C5-C6 vertebral bodies including posterior elements elements and adjacent anterolateral aspect of the vertebral bodies, mildly increased compared to prior study suggestingdisease progression. There is also interval increased narrowing of the left vertebral artery flow void at the level of C6 and C4. 4.There is interval new small focus of STIR hyperintensity in the spinal cord at the level of C4-C5, not visualized on T2 imaging could be artifactual versus myelomalacia, however continued attention recommended on follow-up. > Interpreting Provider: Pearl Jean-Baptiste MD on 10/01/2023 5:54 PM LABORATORY: WBC Date Value Ref Range Status 10/21/2023 7.6 4.0 - 10.7 x10E9/L Final 10/07/2022 8.1 3.5 - 10.5 10??3/uL Final Hemoglobin Date Value Ref Range Status 10/21/2023 13.7 11.9 - 15.8 g/dL Final 10/07/2022 9.2 (L) 12.0 - 15.6 g/dL Final Hematocrit Date Value Ref Range Status 10/21/2023 41.1 34.8 - 46.1 % Final 10/07/2022 27.3 (L) 35.0 - 45.0 % Final INR Date Value Ref Range Status 10/02/2022 1.0 See Comment Final Comment: The suggested therapeutic range for standard coumadin (warfarin) therapy is an INR of 2.0-3.0. For high-risk patients (Mechanical Mitral Valve Prosthesis, etc.), the suggested prophylactic therapeutic range is an INR of 2.5-3.5. Sodium Date Value Ref Range Status 10/25/2023 139 136 - 145 mmol/L Final Chloride Date Value Ref Range Status 10/25/2023 103 98 - 107 mmol/L Final BUN Date Value Ref Range Status 10/25/2023 10 7 - 26 mg/dL Final Creatinine Date Value Ref Range Status 10/25/2023 0.81 0.56 - 0.96 mg/dL Final TSH Date Value Ref Range Status 10/25/2023 <0.010 (L) 0.350 - 4.940 uIU/mL Final IMPRESSION/PLAN Brisa Hogan presents to us today with history of new sore throat and trial of diflucan with steroid nasal spray and past RT adjacent to the esophagus. She has been advised to hold her steroid spray, continue with protein in diet, and notify if worsening. She has expected toxicity of esophagus with recent RT, but unusual it was not closer to treatment and may have been provoked with steroid spray. We would like to see Brisa in approximately 1 months for a follow up visit. We have ordered herfollow up MR scan previously and encouraged consult with MEd Onc for medication with multiple site progression and only palliative radiation. Minimum duration of time spent in chart (preparing with review of radiographic and laboratory tests, discussion of planned care with staff and physicians, discussion with patient for counseling and educating, as well as ordering future tests, radiographic studies, or procedures) : I spent a total of 24 minutes on the day of the visit. Portions of this note reflect historical treatments, history of disease, ongoing symptomatology, and exam findings that remain unchanged from the past note ( 10/22/2023 , and may be located in Media [...] of this note, please contact the author andyo physicians for clarification. Marcio Mcintosh MD 11/10/2023 10:10 AM documented in this encounter Plan of Treatment Upcoming Encounters Date Type Department Care Team (Late st Contact Info) Description 07/25/2024 10:00 AM FORMWORK CARPENTER Office Visit [facility] - Endocrinology [address] [place] [phone] Yosi Bustamante MD [address] [place] [address] 07/26/2024 10:00 AM FORMWORK CARPENTER Appointment [facility] DIAGNOSTIC RAD [address] [place] [phone] Neri Delgado MD [address] [place] [phone] 07/26/2024 10:00 AM FORMWORK CARPENTER Office Visit [facility] - ENT [address] [place] [phone] Myra Farmer, [employer] [place] [address] [place] [address] [place] [phone] 07/26/2024 11:15 AM FORMWORK CARPENTER Office Visit [facility] - ENT [address] [place] [phone] Neri Delgado MD [address] [place] [phone] 08/02/2024 2:20 PM FORMWORK CARPENTER Appointment [facility] [address] [place] [address] 08/02/2024 3:00 PM FORMWORK CARPENTER Office Visit [facility] - Hematology/Oncology [address] [place] [phone] Remi Beckett MD [address] [place] [phone] 08/18/2024 1:45 PM FORMWORK CARPENTER Office Visit [facility] - ENT [address] [place] [phone] Neri Delgado MD [address] [place] [phone] documented as of this encounter Visit Diagnoses Diagnosis Cervical spine tumor- Primary Neoplasm of unspecified nature of bone, soft tissue, and skin Metastasis to bone (HCC) Secondary malignant neoplasm of bone and bone marrow Papillary carcinoma of thyroid (HCC) Malignant neoplasm of thyroid gland Sore throat Acute pharyngitis documented in this encounter Care Teams Affirmative Action Officer Relationship Specialty Start Date End Date Yaya Villatoro MD [address] [place] [phone] PCP - General Internal Medicine 05/04/23 Joseph Manzanares MD [address] [place] [phone] Internal Medicine 04/21/23 documented as of this encounter
--- OUTSIDE RECORDS SUMMARY | 2024-07-23 07:08 | XMS_ITS | Encounter Summary ---
Author Organization [facility] Health Address [address] [place] [address] Care Team Providers Care Director Of Operations For Therapy Name Role Phone Joseph Manzanares MD Unavailable Yaya Villatoro MD Primary Care Provider +1- [phone] Encounter Details Date Type Department Care Team (Latest Contact Info) Description 11/01/2023 Travel Social History Tobacco Use Types Packs/Day [...] place to sleep or slept in a long term (including now)? No 10/02/2022 Sex and Gender [...] st Contact Info) Description 07/25/2024 10:00 AM TOY PARTS FORMER SUPERVISOR [facility] [address] [place] [phone] Yosi Bustamante MD [address] [place] [address] 2L [place] [address] 07/26/2024 10:00 AM TOY PARTS FORMER SUPERVISOR Appointment [facility] DIAGNOSTIC RAD [address] [place] [phone] Neri Delgado MD [address] [place] [address] 07/26/2024 10:00 AM TOY PARTS FORMER SUPERVISOR Office Visit [facility] - ENT [address] [place] [phone] Myra Farmer, DIET TECHNICIAN REGISTERED [address] [place] [address] 2L [place] [phone] 07/26/2024 11:15 AM TOY PARTS FORMER SUPERVISOR Office Visit [facility] - ENT [address] [place] [phone] Neri Delgado MD [address] [place] [address] 08/02/2024 2:20 PM TOY PARTS FORMER SUPERVISOR Appointment [facility] [address] [place] [address] 08/02/2024 3:00 PM TOY PARTS FORMER SUPERVISOR Office Visit [facility]ician Group - Hematology/Oncology [address] [place] [phone] Remi Beckett MD [address] [place] [phone] 08/18/2024 1:45 PM TOY PARTS FORMER SUPERVISOR Office Visit [facility] - ENT [address] [place] [phone] Neri Delgado MD [address] [place] [address] documented as of this encounter Visit Diagnoses Not on filedocumented in this encounter Care Teams Director Of Operations For Therapy Relationship Specialty Start Date End Date Yaya Villatoro MD [address] [phone] PCP - General Internal Medicine 05/04/23 Joseph Manzanares MD [address] [place] [phone] Internal Medicine 04/21/23 documented as of this encounter
--- OUTSIDE RECORDS SUMMARY | 2024-07-23 07:08 | XMS_ITS | Encounter Summary ---
Author Organization [facility] Health Address [address] [facility] [place] [address] Care Team Providers Care Sock Examiner Name Role Phone Joseph Manzanares MD Unavailable Yaya Villatoro MD Primary Care Provider [phone]- [phone] Encounter Details Date Type Department Care Team (Late st Contact Info) Description 10/28/2023 Orders Only [facility] RAD ONC [facility]5 [place] [address] Marcio Mcintosh MD [facility] [place], [place] [phone] Social History Tobacco Use Types Packs/Day Years [...] Progress Notes * Marcio Mcintosh MD - 10/28/2023 3:54 PM CDT Images from the original note were not included. RADIATION ONCOLOGY BRIEF NOTE [facility] [address] [phone] [facility] Date of Visit: 10/28/2023 Brisa Hogan [id number] Informed of sore throat and will Rx diflucan since just completed her RT and she has steroid nasal spray. She will need to inform us of any changes or worsening. Marcio Mcintosh MD 10/28/2023 3:54 PM documented in this encounter Plan of Treatment Upcoming Encounters Date Type Department Care Team (Late st Contact Info) Description 07/25/2024 10:00 AM PRODUCTION BOW MAKER Office Visit [facility] - Endocrinology [address] [place] [phone] Yosi Bustamante MD [address] [place] [address] 2L [place] [address] 07/26/2024 10:00 AM PRODUCTION BOW MAKER Appointment [facility] DIAGNOSTIC RAD [address] [place] [phone] Neri Delgado MD [address] [place] [address] 07/26/2024 10:00 AM PRODUCTION BOW MAKER Office Visit [facility] - ENT [address] [place] [phone] Myra Farmer, CHUTE TENDER [address] [place] [address] 2L [place] [address] 07/26/2024 11:15 AM PRODUCTION BOW MAKER Office Visit [facility] - ENT [address] [place] [phone] Neri Delgado MD [address] [place] [address] 08/02/2024 2:20 PM PRODUCTION BOW MAKER Appointment [facility] [address] [place] [address] 08/02/2024 3:00 PM PRODUCTION BOW MAKER Office Visit [facility] Group - Hematology/Oncology [address] [place] [phone] Remi Beckett MD [address] [place] [phone] 08/18/2024 1:45 PM PRODUCTION BOW MAKER Office Visit [facility] - ENT [address] [place] [phone] Neri Delgado MD [address] [place] [phone] documented as of this encounter Visit Diagnoses Not on filedocumented in this encounter Care Teams Sock Examiner Relationship Specialty Start Date End Date Yaya Villatoro MD [address] [place] [phone] PCP - General Internal Medicine 05/04/23 Joseph Manzanares MD [address] [place] [phone] Internal Medicine 04/21/23 documented as of this encounter
--- OUTSIDE RECORDS SUMMARY | 2024-07-23 07:08 | XMS_ITS | Encounter Summary ---
Author Organization [facility] Health Address [address] [place] [place] [address] Care Team Providers Care Computer Programmer Name Role Phone Joseph Manzanares MD Unavailable Yaya Villatoro MD Primary Care Provider +1- [phone] Encounter Details Date Type Department Care Team (Late st Contact Info) Description 10/27/2023 Orders Only [facility] - Endocrinology [address] [place] [address], [place] [phone] Yosi Bustamante MD [address] [place] [address] [address] [facility] [place] [address] Thyroid cancer (HCC) ; Postoperative hypothyroidism; Malignant tumor of thyroid gland (HCC); Cancer, metastatic to bone (HCC) Social History [...] place to sleep or slept in a fci (including now)? No 10/02/2022 Sex and Gender [...] st Contact Info) Description 07/25/2024 10:00 AM PRESENTATION DESIGNER Office Visit [facility] - Endocrinology [address] [place] [phone] Yosi Bustamante MD [address] [place] [address] 2L [place] [address] 07/26/2024 10:00 AM PRESENTATION DESIGNER Appointment [facility] DIAGNOSTIC RAD [address] [place] [phone] Neri Delgado MD [address] [place] [phone] 07/26/2024 10:00 AM PRESENTATION DESIGNER Office Visit [facility] - ENT [address] [place] [phone] Myra Farmer, AUTO BODY REPAIRER [address] [place] [address] 2L [place] [address] 07/26/2024 11:15 AM PRESENTATION DESIGNER Office Visit [facility] - ENT [address] [place] [phone] Neri Delgado MD [address] [place] [phone] 08/02/2024 2:20 PM PRESENTATION DESIGNER Appointment [facility] [address] [place] [address] 08/02/2024 3:00 PM PRESENTATION DESIGNER Office Visit [facility] - Hematology/Oncology [address] [place] [phone] Remi Beckett MD [address] [place] [phone] 08/18/2024 1:45 PM PRESENTATION DESIGNER Office Visit [facility] - ENT [address] [place] [phone] Neri Delgado MD [address] [place] [address] documented as of this encounter Visit Diagnoses Diagnosis Thyroid cancer (HCC)- Primary Malignant neoplasm of thyroid gland Postoperative hypothyroidism Postsurgical hypothyroidism Malignant tumor of thyroid gland (HCC) Malignant neoplasm of thyroid gland Cancer, metastatic to bone (HCC) Secondary malignant neoplasm of bone and bone marrow documented in this encounter Care Teams Computer Programmer Relationship Specialty Start Date End Date Yaya Villatoro MD [address] [place] [phone] PCP - General Internal Medicine 05/04/23 Joseph Manzanares MD [address] [place] [phone] Internal Medicine 04/21/23 documented as of this encounter
--- OUTSIDE RECORDS SUMMARY | 2024-07-23 07:08 | XMS_ITS | Encounter Summary ---
Author Organization 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 Cancer, metastatic to bone (HCC) Procedures PET CT WHOLE BODY Marcio Mcintosh MD [address] [place] [address] [facility] Pet Op [address] [place] [address] Referral ID Status Reason Start Date Expiration Date Visits Re quested Visits Authorized [id number] Closed 02/25/2024 05/25/2024 1 1 * Radiology Services (Routine) - Closed Specialty Diagnoses / Procedures Referred By Yuan robins Referred To Contact MRI Diagnoses Thyroid cancer (HCC) Metastasis to bone (HCC) Papillary carcinoma of thyroid (HCC) 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 Cancer, metastatic to bone (HCC) Procedures MRI CERVICAL SPINE WWO Marcio Hendrix MD [address] [place] [address] [facility] Mri [address] [place] [address] Referral ID Status Reason Start Date Expiration Date Visits Re quested Visits Authorized [id number] Closed 02/25/2024 05/25/2024 1 1 Reason for Visit * Consult, Test & Treat (Routine) - Closed Specialty Diagnoses / Procedures Referred By Yuan robins Referred To Contact Radiation Oncology Diagnoses Neoplasm of unspecified behavior of bone, soft tissue, and skin Procedures FOLLOW UP Yaya Villatoro MD [address] [address] [place] [address] [place] [address] Referral ID Status Reason Start Date Expiration Date V isits Requested Visits Authorized [id number] Closed Insurance Mandate 11/24/2023 05/26/2024 1 1 Encounter Details Date Type Department Care Team (Latest Contact Info) Description 11/24/2023 10:52 AM CDT - 11/24/2023 11:59 PM CDT Hospital Encounter [facility] RAD ONC [address] [place] [address] Marcio Mcintosh MD [facility] [place] [address] Discharge Disposition: Home or Self [...] Recorded PHQ2 TOTAL SCORE 1 11/25/2022 [facility] - Occupational [...] Sign Reading Time Taken Comments Blood Pressure 123/71 11/24/2023 11:17 AM CDT Pulse 81 11/24/2023 11:17 AM CDT Temperature 36.2 ??C (97.1 ??F) 11/24/2023 11:17 AM C DT Respiratory Rate 18 11/24/2023 11:17 AM CDT Oxygen Saturation 98% 11/24/2023 11:17 AM CDT Inhaled Oxygen Concentration - - Weight 60 kg (132 lb 3.2 oz) 11/24/2023 11:17 AM CDT Height - - Body Mass Index 25.28 10/21/2023 1:17 PM CDT documented in this [...] HCl (Narcan) 4 MG/0.1ML nasal spray [place] 1 (one) spray into the nose as [...] Progress Notes * Marcio Mcintosh MD - 11/24/2023 11:38 AM CDT Images from the original note were not included. Return Patient Visit Department of Radiation Oncology [facility] ENCOUNTER DATE: 11/24/2023 PATIENT IDENTIFICATION Brisa Walters 1960 Autopopulated Data Chief Complaint: No chief complaint on file. Diagnosis: 1. Thyroid cancer (CMS/HCC) 2. Metastasis to bone (HCC) 3. 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 She underwent palliative radiotherapy with 3951-4021 cGy in 5 fractions delivered via IMRT to the C2 through T1 T2 region. She tolerated well and noted no progression of neurologic symptoms. SUBJECTIVE/HPI: Ms. Brisa Walters is a 63 year old female who returns for a follow up visit. Since our last visit, Brisa has returned with neck pain at 2/10 and swallowing almost back to normal. Best with soft and moist items. She has less strain to move her right hand and fingers together.She has intermittent pains at the left biceps area and feels overall better. Denies bowel or urinary changes.. She has not started chemotherapy. . REVIEW OF SYSTEMS: GENERAL: Denies Headaches, nausea, vomiting PULMONARY: Denies cough or worsened shortness of breath NEUROLOGIC: Denies new neurologic deficit or weakness/loss of motion in arms or legs I have also reviewed the nursing assessment flowsheet below: Radiation Oncology Nursing Assessement 11/24/2023 Education: Karnofsky ECOG Score: Karnofsky ECOG Score: [place] 90-Able to carry on normal activity, minor signs or symptoms of disease, ECOG 0-Fully active, able to carry on all pre-disease activities with restriction Treatment Sites: System Assessment: Pain: Pain: Yes (Soreness of throat # 2 intensity. Intermittent L hip pain # 5-6 intensity, relievewith ibuprofen and walking) Nausea: Nausea: No Fatigue: Fatigue: Yes (Fluctuate) Sleep: Sleep: No Mobility: Mobility: Yes (Ambulate with walker. Can close R hand. Limited movement of R hand and L arm) Bathing/Dressing: Bathing/Dressing: Yes (Requires assistance) Breathing: Breathing: Yes (Intermittent cough, occassional intermittent, mainly clear, occassional the food that stuck in throat) Mouth Sores: Mouth Sores: No Eating: Eating: Yes (Decrease appetite. Ensure 2x/d. Small bites r/t feeling throat closing/smaller) Indigestion: Indigestion: No Constipation: Constipation: No Diarrhea: Diarrhea: No Changes in Urination: Changes in urination: No Fevers: Fevers: No Skin Dry/Itchy: Skin dry/itchy: Yes (Hx of psoriasi. Generalized bruising) Nasal: Nasal: No Hands/Feet: Tingling in hands/feet: Yes (Intermittent bad cramps L upper arm, noted since drinking ensure. L hand fingertips tingling. Numbness R igor hand) Memory/Concentration: Memory/concentation: No Swelling: Swelling: Yes (Feeling of throat swollen) Appearance: Appearance: No Sexual: Mucous Membrances: Eye: Ears: Salivary Glands: Pharynx and Esophagus: Larynx: Larynx: 1-Mild or intermittent horseness/cough not requiring antitussive/erythema of mucosa Upper GI: Lower GI including pelvis: Lungs: Other: PAST MEDICAL HISTORY Past Medical History: Diagnosis Date Anxiety and depression Degenerative disc disease, lumbar Disorder of thyroid mass on thyroid - right GERD (gastroesophageal reflux disease) High cholesterol HLD (hyperlipidemia) Hypocalcemia 10/14/2020 Osteoarthritis of one hip, left Other hypoparathyroidism 10/14/2020 Postoperative hypothyroidism 10/14/2020 Psoriasis Seasonal allergies Snoring SOB (shortness of breath) 22 thyroid mass Thyroid cancer (HCC) 10/14/2020 Tracheal [...] 180 days (Patient not taking: Reported on 11/24/2023) famotidine (PEPCID) 20 MG tablet Take 1 [...] HCl (Narcan) 4 MG/0.1ML nasal spray [place] 1 (one) spray into the nose as [...] facility-administered medications for this encounter. OBJECTIVE: Vitals: 11/24/23 1117 BP: 123/71 Pulse: 81 Resp: 18 Temp: 97.1 ??F SpO2: 98% Weight: 60 kg (132 lb 3.2 oz) PainSc: Two PainLoc: Throat Wt Readings from Last 3 Encounters: 11/24/23 60 kg (132 lb 3.2 oz) 11/04/23 61.5 kg (135 lb 9.6 oz) 11/04/23 61.7 kg (136 lb 1.6 oz) KPS is 70 General Appearance: in no apparent distress, well developed and well nourished, alert, anicteric, and cooperative HEENT: Normocephalic, atraumatic normal skin coloration at neck Lymph: No adenopathy of the cervical or supraclavicular fossa palpable Extremities:extremities normal, atraumatic, no cyanosis or edema Neurological exam reveals alert, oriented, normal speech, no focal findings or movement disorder noted, cranial nerves II through XII intact, motor and sensory grossly normal bilaterally, normal muscle tone, no tremors, strength 4/5, abnormal findings: noted right indexand thumb are unable to touch, but improved from past. Left arm decreased sensation at baseline per patient. RADIOGRAPHIC IMAGES: MR Cervical spine 11/23/2023: On my personal review there is no new encroachment into the spinal canal. Previously noted abnormal vertebral body of C2 down to T2 is similar to more with fatty replacement after RT. The previously foramenal masses appear slightly smaller, but remain in the foramen. I await the radiologist review. No new mets appreciated. MRI BRAIN WWO CONTRAST Result Date: 11/08/2023 [...] follow-up. Report dictated by Froylan Ny DO (radiology transcriptionist). > Dictated by Froylan Ny DO (Contact Center Rep) 10/06/2023 3:25 PM ITiesha DO have personally [...] Brisa Walters presents to us today with radiographic stability toslight decrase n her known cervical disease. She is encouraged to consider systemic treatment and /or proceed with future WARD from endocrinology. However she is cautioned that this current disease was not previously detectedand may not uptake glucose that systemic therapy may be more helpful. We have reordered a PET CT and anMR cervical spine for assessment in 3 mos. We would like to see Brisa in 3 months for a follow up visit. We have ordered her scans.. Minimum duration of time spent in chart (preparing with review of radiographic and laboratory tests, discussion of planned care with staff and physicians, discussion with patient for counseling and educating, as well as ordering future tests, radiographic studies, or procedures) : I spent a total of 37 minutes on the day of the visit. Portions of this note reflect historical treatments, history of disease, ongoing symptomatology, and exam findings that remain unchanged from the past note ( 11/04/2023 , and may be located in Media [...] of this note, please contact the [facility] for clarification. Marcio Mcintosh MD 11/24/2023 11:39 AM documented in this encounter Plan of Treatment Upcoming Encounters Date Type Department Care Team (Late st Contact Info) Description 07/25/2024 10:00 AM OUTSIDE RESIDENTIAL SALES PROFESSIONAL Office Visit [facility] - Endocrinology [address] [place] [address], [place] [address] Yosi Bustamante MD [address] [place] [address] 07/26/2024 10:00 AM OUTSIDE RESIDENTIAL SALES PROFESSIONAL Appointment [facility] DIAGNOSTIC RAD [address] [place] [address] Neri Delgado MD [address] [place] [address] 07/26/2024 10:00 AM OUTSIDE RESIDENTIAL SALES PROFESSIONAL Office Visit [facility] - ENT [address] [place] [phone] Myra Farmer, FISCAL SERVICES MANAGER [address] [place] [address] [place] [phone] 07/26/2024 11:15 AM OUTSIDE RESIDENTIAL SALES PROFESSIONAL Office Visit [facility] - ENT [address] [place] [phone] Neri Delgado MD [address] [place] [address] 08/02/2024 2:20 PM OUTSIDE RESIDENTIAL SALES PROFESSIONAL Appointment [facility] INFUSION CENTER [address] [place] [address] 08/02/2024 3:00 PM OUTSIDE RESIDENTIAL SALES PROFESSIONAL Office Visit [facility] - Hematology/Oncology [address] [place] [phone] Remi Beckett MD [address] [place] [phone] 08/18/2024 1:45 PM OUTSIDE RESIDENTIAL SALES PROFESSIONAL Office Visit [facility] - ENT [address] [place] [phone] Neri Delgado MD [address] [place] [address] documented as of this encounter Results * MRI CERVICAL SPINE [...] DATE/TIME OF EXAM: ??02/25/2024 12:38 PM, LOCATION ??[facility] INDICATION: C73: Thyroid cancer (HCC) C79.51: Metastasis [...] DATE/TIME OF EXAM: 02/25/2024 12:38 PM, LOCATION [facility] INDICATION: C73: Thyroid cancer (HCC) C79.51: Metastasis [...] 3:49 PM Marcio Mcintosh MD MR ORDERABLES * PET CT WHOLE BODY (02/25/2024 [...] lung zone. > Dictated by Tex Andrew (Contact Center Rep) 02/25/2024 10:45 AM Tiesha Mckeon DO have personally reviewed [...] lung zone. > Dictated by Tex Andrew (Contact Center Rep) 02/25/2024 10:45 AM I, Tiesha Sy DO have personally reviewed and interpreted this examination/study. > Interpreting Provider: Tiesha Sy DO on 02/25/2024 4:00 PM Marcio Mcintosh MD [place] ORDERABLES documented in this encounter Visit Diagnoses Diagnosis Thyroid cancer (CMS/HCC)- Primary Malignant neoplasm of thyroid gland Metastasis [...] malignant neoplasm of bone and bone marrow Thyroid cancer (CMS/HCC) Malignant neoplasm of thyroid [...] malignant neoplasm of bone and bone marrow Thyroid cancer (CMS/HCC) Malignant neoplasm of thyroid [...] marrow documented in this encounter Care Teams Parachute Packer Relationship Specialty Start Date End Date Yaya Villatoro MD [address] [facility] [address] [place] [address] PCP - General Internal Medicine 05/04/23 Joseph Manzanares MD [address] [place] [phone] Internal Medicine 04/21/23 documented as of this encounter
--- OUTSIDE RECORDS SUMMARY | 2024-07-23 07:08 | XMS_ITS | Encounter Summary ---
Author Organization [facility] Address [address] [facility] [place] [address] Care Team Providers Care Service Director Name Role Phone Joseph Manzanares MD Unavailable Yaya Villatoro MD Primary Care Provider [phone]- [phone] Encounter Details Date Type Department Care Team (Late st Contact Info) Description 10/21/2023 Orders Only [facility] - Hematology/Oncology [address] [place] [phone] Amadeo Robles MD [address] [facility] [place] [phone] Social History Tobacco Use Types Packs/Day Years [...] st Contact Info) Description 07/25/2024 10:00 AM PRICER Office Visit [facility] - Endocrinology [address] [place] [phone] Yosi Bustamante MD [address] [place] [address] 2L [place] [address] 07/26/2024 10:00 AM PRICER Appointment [facility] DIAGNOSTIC RAD [address] [place] [address] Neri Delgado MD [address] [place] [address] 07/26/2024 10:00 AM PRICER Office Visit [facility] - ENT [address] [place] [phone] Myra Farmer, CLOTHES IRONER [address] [place] [address] 2L [place] [phone] 07/26/2024 11:15 AM PRICER Office Visit [facility] - ENT [address] [place] [phone] Neri Delgado MD [address] [place] [address] 08/02/2024 2:20 PM PRICER Appointment [facility] INFUSION CENTER [address] [place] [address] 08/02/2024 3:00 PM PRICER Office Visit [facility] - Hematology/Oncology [facility] [place] [phone] Remi Beckett MD [address] [place] [phone] 08/18/2024 1:45 PM PRICER Office Visit [facility] - ENT [address] [place] [phone] Neri Delgado MD [address] [place] [address] documented as of this encounter Visit Diagnoses Not on filedocumented in this encounter Care Teams Service Director Relationship Specialty Start Date End Date Yaya Villatoro MD [address] [phone] PCP - General Internal Medicine 05/04/23 Joseph Manzanares MD [address] [place] [phone] Internal Medicine 04/21/23 documented as of this encounter
--- OUTSIDE RECORDS SUMMARY | 2024-07-23 07:08 | XMS_ITS | Encounter Summary ---
Author Organization [facility] Health Address [address] [place] [address] Care Team Providers Care Plating Technician Name Role Phone Joseph Manzanares MD Unavailable Yaya Villatoro MD Primary Care Provider [phone]- [phone] Encounter Details Date Type Department Care Team (Latest Contact Info) Description 10/21/2023 Travel Social History Tobacco Use Types Packs/Day [...] Date Recorded PHQ2 TOTAL SCORE 1 11/25/2022 [facility] - [...] st Contact Info) Description 07/25/2024 10:00 AM STOVE POLISHER [facility] End[facility] [address] [place] [phone] Yosi Bustamante MD [address] [place] [address] 2L Div [place] [address] 07/26/2024 10:00 AM STOVE POLISHER Appointment [facility] DIAGNOSTIC RAD [address] [place] [address] Neri Delgado MD [address] [place] [address] 07/26/2024 10:00 AM STOVE POLISHER Office Visit [facility] - ENT [address] [place] [phone] Myra Farmer, DINING ROOM HOST [address] [place] [address] 2L [place] [phone] 07/26/2024 11:15 AM STOVE POLISHER Office Visit [facility] - ENT [address] [place] [phone] Neri Delgado MD [address] [place] [address] 08/02/2024 2:20 PM STOVE POLISHER Appointment [facility] INFUSION CENTER [address] [place] [address] 08/02/2024 3:00 PM STOVE POLISHER Office Visit [facility] - Hematology/Oncology [address] [place] [phone] Remi Beckett MD [address] [place] [phone] 08/18/2024 1:45 PM STOVE POLISHER Office Visit [facility] - ENT [address] [place] [address] Neri Delgado MD [address] [place] [address] documented as of this encounter Visit Diagnoses Not on filedocumented in this encounter Care Teams Plating Technician Relationship Specialty Start Date End Date Yaya Villatoro MD [address] [phone] PCP - General Internal Medicine 05/04/23 Joseph Manzanares MD [address] [place] [phone] Internal Medicine 04/21/23 documented as of this encounter
--- OUTSIDE RECORDS SUMMARY | 2024-07-23 07:08 | XMS_ITS | Encounter Summary ---
Author Organization [facility] Address [address] [facility] [place] [address] Care Team Providers Care Binder Stripper Machine Name Role Phone Joseph Manzanares MD Unavailable Yaya Villatoro MD Primary Care Provider [phone] Reason for Referral * Radiology Services (Routine) - Closed Specialty Diagnoses / Procedures Referred By Contac julienne Referred To Contact MRI Diagnoses Cervical spine tumor Cancer, metastatic to bone (HCC) Papillary carcinoma of thyroid (HCC) Procedures MRI CERVICAL SPINE WWO CONT Marcio Mcintosh MD [address] [place] [address] [facility] [address] [place] [phone] Referral ID Status Reason Start Date Expiration Date Visits Re quested Visits Authorized [id number] Closed 11/23/2023 02/21/2024 1 1 Encounter Details Date Type Department Care Team (Late st Contact Info) Description 10/28/2023 Orders Only [facility] [address] [place] [address] Marcio Mcintosh MD [address] [place] [address] Cervical spine tumor ; Cancer, metastatic to bone (HCC); Papillary carcinoma of thyroid (HCC) Social History [...] Contact Info) Description 07/25/2024 10:00 AM SUPERVISOR FINISHING DEPARTMENT Office Visit [facility] - Endocrinology [address] [place] [phone] Yosi Bustamante MD [address] [place] [address] [place] [address] 07/26/2024 10:00 AM SUPERVISOR FINISHING DEPARTMENT Appointment [facility] [address] [place] [phone] Neri Delgado MD [address] [place] [phone] 07/26/2024 10:00 AM SUPERVISOR FINISHING DEPARTMENT Office Visit [facility] - ENT [address] [place] [phone] Myra Farmer, SEED CLEANER [address] [place] [address] [place] [phone] 07/26/2024 11:15 AM SUPERVISOR FINISHING DEPARTMENT Office Visit [facility] - ENT [address] [place] [phone] Neri Delgado MD [address] [place] [phone] 08/02/2024 2:20 PM SUPERVISOR FINISHING DEPARTMENT Appointment [facility] [address] [place] [phone] 08/02/2024 3:00 PM SUPERVISOR FINISHING DEPARTMENT Office Visit [facility] - Hematology/Oncology [address] [place] [phone] Remi Beckett MD [address] [place] [phone] 08/18/2024 1:45 PM SUPERVISOR FINISHING DEPARTMENT Office Visit [facility] - ENT [address] [place] [phone] Neri Delgado MD [address] [place] [phone] documented as of this encounter Results * MRI CERVICAL SPINE WWO CONT (11/23/2023 5:43 PM CDT) Anatomical Region Laterality Modality Spine Magnetic Resonan ce 11/29/2023 9:5 4 AM CDT Impressions 12/06/2023 10:40 AM CDT IMPRESSION: 1. Redemonstrated posterior C2-T2 spinal fusion with C3-C7 laminectomies as above, unchanged compared to prior. 2. Redemonstrated marrow replacing lesions consistent with metastatic disease involving the C2, C4, C5, C6 and T1 vertebral bodies as above, not significantly changed compared to prior. There is mild STIR signal hyperintensity within the central portion of [...] vocal cord dysfunction. Clinical correlation is recommended. Report dictated by Kendall Quiroz MD (vice president research). I, Toñito Lucia MD have personally reviewed and interpreted this examination/study. > Interpreting Provider: Toñito uLcia MD on 12/06/2023 10:40 AM Narrative 12/06/2023 10:40 AM CDT MRI CERVICAL SPINE WWO CONT DATE: 11/23/2023 5:43 PM EXAMINATION: Magnetic resonance imaging (MRI) of the cervical spine without and with contrast HISTORY: D49.2: Cervical spine tumor C79.51: Cancer, metastatic to bone (HCC) C73: Papillary carcinoma of thyroid (HCC) TECHNIQUE: MRI of the cervical spine was performed prior to and following the uneventful administration of 6 mL Gadavist intravenous gadolinium contrast according to standard protocol. COMPARISON: MRI cervical spine with and without contrast dated 10/01/2023. FINDINGS: Redemonstration of postoperative findings of C3-C7 decompressive laminectomy for resection of the extramedullary tumor, posterior instrumented fusion with the through the levels of C2-T2 with vertical interconnecting rods and bilateral lateral mass/pedicular screws bilaterally at the level of C2-C3 and T1-T2, unilateral right-sided screws through the levels of C4-C7. Susceptibility artifact from the hardware limits evaluation. There is redemonstration of a marrow replacing process throughout the cervical and visualized thoracic spine involving the C2, posterior aspect of C4, posterior aspect of C5, C6 and T1 vertebral bodies with persistent STIR signal hyperintensity and T1 hypointense signal, not significantly changed compared to prior. There is minimal STIR signal hyperintensity within the central portion of the C7 vertebral body, without T1 signal hypointensity or discrete enhancement, which may be artifactual. No definitive new lesions are identified. There is persistent nodular thickening and enhancement within the ventral epidural space measuring up to 5 mm in maximal thickness (series 8 image 10) extending from the C4-C5 to T1-T2, overall not significantly changed in size or extension as compared to prior, without significant central canal stenosis. There is a persistent enhancing soft tissue mass involving the left C5-C6 and C6-C7 neural foramina with extension into the prevertebral and epidural spaces, currently measuring approximately 1.5 x 1.7 cm (series 5 image 21), not significantly changed in size as compared to prior. There is persistent mild narrowing of the adjacent left vertebral artery with normal flow voids, overall not significantly changed. There is no definite abnormal signal intensity within or abnormal enhancement of the cervical spinal cord. There is mild retrolisthesis of C4 on C5. There is trace anterolisthesis of C7 on T1. Vertebral bodies are normal in height without evidence of compression fractures. The craniocervical junction and visualized portions of the posterior fossa appear unchanged. There is mild disc height loss at multiple levels. There are multilevel degenerative changes, not significantly changed compared to prior without significant central canal stenosis. There is no significant interval change in the multilevel right-sided moderate neural foraminal stenosis through the level of C4-C5 to C6-C7. There is soft tissue extension of tumor through the levels of C4-C5, C5-C6 and C6-C7 neural foramina on the left side, similar to prior study. There is some medialization of the right true vocal cord with widening the right piriform sinus and thickening of the right aryepiglottic fold suggesting the possibility of right vocal cord dysfunction. The thyroid gland is absent suggesting previous surgical removal. Procedure Note Toñito Lucia MD - 12/06/2023 MRI CERVICAL SPINE WWO CONT DATE: 11/23/2023 5:43 PM EXAMINATION: Magnetic resonance imaging (MRI) of the cervical spinewithout and with contrast HISTORY: D49.2: Cervical spine tumor C79.51: Cancer, metastatic to bone (HCC) C73: Papillary carcinoma of thyroid (HCC) TECHNIQUE: MRI of the cervical spine was performed prior to andfollowing the uneventful administration of 6 mL Gadavist intravenous gadolinium contrast according to standard protocol. COMPARISON: MRI cervical spine with and without contrast date10/01/2023. FINDINGS: Redemonstration of postoperative findings of C3-C7 decompressive laminectomy for resection of the extramedullary tumor, posterior instrumented fusion with the through the levels of C2-T2 with vertical interconnecting rods and bilateral lateral mass/pedicular screws bilaterally at the level of C2-C3 and T1-T2, unilateral right-sidedscrews through the levels of C4-C7. Susceptibility artifact from the hardware limits evaluation. There is redemonstration of a marrow replacing process throughout the cervical and visualized thoracic spine involving the C2, posterioraspect of C4, posterior aspect of C5, C6 and T1 vertebral bodies withpersistent STIR signal hyperintensity and T1 hypointense signal, not significantly changed compared to prior. There is minimal STIR signal hyperintensity within the central portion of the C7 vertebral body, without T1 signal hypointensity or discrete enhancement, which may be artifactual. No definitive new lesions are identified. There is persistent nodular thickening and enhancement within theventral epidural space measuring up to 5 mm in maximal thickness (series 8 image 10) extending from the C4-C5 to T1-T2, overall not significantly changedin size or extension as compared to prior, without significant centralcanal stenosis. There is a persistent enhancing soft tissue mass involving the leftC5-C6 and C6-C7 neural foramina with extension into the prevertebral andepidural spaces, currently measuring approximately 1.5 x 1.7 cm (series 5 image21), not significantly changed in size as compared to prior. There ispersistent mild narrowing of the adjacent left vertebral artery with normal flow voids, overall not significantly changed. There is no definite abnormal signal intensity within or abnormal enhancement of the cervical spinal cord. There is mild retrolisthesis of C4 on C5. There is trace anterolisthesisof C7 on T1. Vertebral bodies are normal in height without evidence of compression fractures. The craniocervical junction and visualizedportions of the posterior fossa appear unchanged. There is mild disc height lossat multiple levels. There are multilevel degenerative changes, not significantly changed compared to prior without significant central canal stenosis. There isno significant interval change in the multilevel right-sided moderateneural foraminal stenosis through the level of C4-C5 to C6-C7. There is soft tissue extension of tumor through the levels of C4-C5, C5-C6 and C6-C7 neural foramina on the left side, similar to prior study. There is some medialization of the right true vocal cord with wideningthe right piriform sinus and thickening of the right aryepiglottic fold suggesting the possibility of right vocal cord dysfunction. The thyroid gland is absent suggesting previous surgical removal. IMPRESSION: 1. Redemonstrated posterior C2-T2 spinal fusion with C3-C7 laminectomiesas above, unchanged compared to prior. 2. Redemonstrated marrow replacing lesions consistent with metastatic disease involving the C2, C4, C5, C6 and T1 vertebral bodies as above,not significantly changed compared to prior. There is mild STIR signal hyperintensity within the central portion of the C7 vertebral bodywithout associated T1 signal hypointensity, likely artifactual however attentionon follow-up is recommended. Otherwise, no discrete osseous [...] not significantly changed in size as compared toprior. There is persistent minimal narrowing of the left vertebral artery witha normal flow void, overall unchanged. 5. Findings suggestive of possible right true vocal cord dysfunction. Clinical correlation is recommended. Report dictated by Kendall Quiroz MD (vice president research). I, Toñito Lucia MD have personally reviewed and interpreted this examination/study. > Interpreting Provider: Toñito Lucia MD on 12/06/2023 10:40 AM Marcio Mcintosh MD MR ORDERABLES documented in this encounter Visit Diagnoses Diagnosis Cervical spine tumor- Primary Neoplasm of unspecified nature of bone, soft tissue, and skin Cancer, metastatic to bone (HCC) Secondary malignant neoplasm of bone and bone marrow Papillary carcinoma of thyroid (HCC) Malignant neoplasm of thyroid gland Cervical spine tumor Neoplasm of unspecified nature of bone, soft tissue, and skin Cancer, metastatic to bone (HCC) Secondary malignant neoplasm of bone and bone marrow Papillary carcinoma of thyroid (HCC) Malignant neoplasm of thyroid gland documented in this encounter Care Teams Binder Stripper Machine Relationship Specialty Start Date End Date Yaya Villatoro MD [address] [facility] [address] [place] [phone] PCP - General Internal Medicine 05/04/23 Joseph Manzanares MD [address] [place] [phone] Internal Medicine 04/21/23 documented as of this encounter
--- OUTSIDE RECORDS SUMMARY | 2024-07-23 07:08 | XMS_ITS | Encounter Summary ---
Author Organization [facility] Address [address] [facility] [facility] [place] [address] Care Team Providers Care Newswriter Name Role Phone Joseph Manzanares MD Unavailable Yaya Villatoro MD Primary Care Provider [phone]- [phone] Reason for Referral * Laboratory Services (Routine) - Authorized Specialty Diagnoses / Procedures Referred By Contac t Referred To Contact Hematology and Oncology Diagnoses Papillary carcinoma of thyroid (HCC) Procedures TEMPUS XT Remi Daniels MD [address] [place] [address] Referral ID Status Reason Start Date Expiration Date V isits Requested Visits Authorized [id number] Authorized 12/10/2023 12/09/2024 1 1 Reason for Visit * Reason Comments Follow-up Malignant tumor of t hyroid gland Encounter Details Date Type Department Care Team (Latest Contact Info) Description 12/10/2023 10:40 AM CDT Office Visit [facility] - Hematology/Oncology [address] [place] [address] Remi Daniels MD [address] [place] [address] Papillary carcinoma of thyroid (HCC) [...] PHQ2 TOTAL SCORE 1 11/25/2022 [facility] - Occupational [...] Sign Reading Time Taken Comments Blood Pressure 112/72 12/10/2023 10:59 AM CDT Pulse 95 12/10/2023 10:59 AM CDT Temperature 36.5 ??C (97.7 ??F) 12/10/2023 1 0:59 AM CDT Respiratory Rate - - Oxygen Saturation 99% 12/10/2023 10: 59 AM CDT Inhaled Oxygen Concentration - - Weight 59.7 kg (131 lb 11.2 oz) 024 10:59 AM CDT Height - - Body Mass Index 25.19 10/21/2023 1:17 PM CDT documented in this [...] encounter Patient Instructions * Patient Instructions* Remi Daniels MD - 12/10/2023 11:15 AM CDT Thank you for entrusting your healthcare to the physicians and other specialists at the [facility]. [facility]: For symptom management or prescription questions during business hours (Mon-Fri 8AM-4:30PM), pleasecall the triage nurse. Outside of business hours, please call the hematology/oncology doctor on-call. Hem/Onc Doctor On-Call (After hours, weekends, holidays): [phone], Dial [phone] (Wharf Attendant) and askfor the hematology/oncology fellow on-call and [...] in this encounter Progress Notes * Remi Daniels MD - 12/10/2023 10:40 AM CDT HEMATOLOGY-ONCOLOGY CLINIC NOTE DATE OF VISIT: 12/10/2023 REASON FOR VISIT / CHIEF COMPLAINT: Thyroid cancer SUBJECTIVE: DIAGNOSIS: Papillary carcinoma of thyroid, stage III (pT4a pN1b cM0), diagnosed 08/19/2020, with locally recurrent/residual disease identified 02/05/2022, and distant recurrence in spine diagnosed 10/02/2022 TREATMENT HISTORY: - Total thyroidectomy requiring sacrifice [...] cGy in 5 fractions, 10/18/2023 to 10/22/2023 ONCOLOGIC HISTORY: --03/07/2020: US thyroid showed right [...] infiltrating skeletal muscle; margins free of malignancy. --03/19/2022: Thyroglobulin 71.9, thyroglobulin antibody undetectable. --08/14/2022: [...] free T4 1.4. --10/2023: Discussed with her trimmer and reinforcer Dr. Bustamante. She is not a good candidate for repeatRAI, which also does not have good bone/DIALYSIS CHIEF EQUIPMENT TECHNICIAN penetration. Hence decided to initiate lenvatinib 24 mgorally once daily. --11/05/2023: Brain MRI negative for metastasis. --11/23/2023: MRI cervical spine consistent with metastatic disease involvement of the C2, C4, C5, C6 and T1 vertebral bodies, not significantly changed compared to prior. INTERVAL HISTORY: She presents to the clinic today for follow-up. States she has done well in the recent past. Deniesnew lumps/bumps, night sweats, weight loss, nausea, vomiting or diarrhea. Says she is scheduled forrepeat radioactive iodine therapy with her trimmer and reinforcer in the near future. Appetite is good. Ambulating reasonably well with [...] Neg Hx Current Outpatient Medications Medication Sig albuterol HFA [...] naloxone HCl (Narcan) 4 MG/0.1ML nasal spray [place] 1 (one) spray into the nose as [...] C/T spine, 3,000 cGy in 5 fractions. Chemotherapy lenvatinib (Lenvima) 2 x 10 MG & 4 MG capsule, 0 of 1 cycle, Start date: --, End date: -- Active Treatment Days for Brisa Gonzalez (until 12/11/2023) There are no remaining days before 12/11/2023. REVIEW OF SYSTEMS: A 10 point review of systems was performed and negative except as listed in the history above. OBJECTIVE: PHYSICAL EXAM: Vitals: BP 112/72 (BP Location: Right arm, Patient Position: Sitting) Pulse 95 Temp 97.7 ??F (36.5 ??C) (Oral) Wt 59.7 kg (131 lb 11.2 oz) SpO2 99% Wt Readings from Last 3 Encounters: 12/10/23 59.7 kg (131 lb 11.2 oz) 11/24/23 60 kg (132 lb 3.2 oz) 11/04/23 61.5 kg (135 lb 9.6 oz) General appearance: Comfortable, not in acute distress. Head: Normocephalic, atraumatic. Eyes: Conjunctiva/corneas clear. EOM's intact. Nose: Nares normal, septum midline, mucosa normal, no drainage or sinus tenderness. Neck: Supple, symmetrical, trachea midline. Lungs: Clear to auscultation bilaterally, respirations unlabored. Heart: Regular rate and rhythm, S1 and S2 normal, no murmur, rub or gallop. Abdomen: Soft, nontender, bowel sounds active, no masses, no organomegaly. Extremities: Extremities normal, atraumatic, no cyanosis or edema. Skin: No rashes or lesions. Lymph nodes: No palpable cervical, supraclavicular, axillary or inguinal lymphadenopathy. Neurologic: AAO, no gross motor deficits. ECO Karnofsky Performance Status: 80% - Normal activity with effort; some signs or symptoms of disease LABS: Recent Labs Component Name 12/10/23 1054 10/21/23 1450 10/07/22 0012 10/05/22 2234 10/05/22 0436 WBC 7.7 7.6 8.1 8.9 9.3 RBC 5.36* 4.83 3.03* 3.18* 3.32* HGB 14.9 13.7 9.2* 9.7* 10.2* HCT 45.1 41.1 27.3* 29.2* 30.5* MCV 84.1 85.1 90.1 91.8 91.9 MCHC 33.0 33.3 33.7 33.2 33.4 PLTCOUNT 285 290 263 239 239 NEUTPCT 70.4 68.6 59.0 67.4 68.2 LYMPHPCT 17.0 19.8 - - - NEUTABS - - 4.75 6.03 6.32 LYMPHABS 1.31 1.51 - - - BASOABS 0.05 0.03 - - - Recent Labs Component Name 12/10/23 1054 10/25/23 1445 10/21/23 1450 09/09/23 1343 12/24/22 1059 10/07/22 0012 10/05/22 2234 10/05/22 0436 07/24/20 1427 03/07/20 1519 POTASSIUM 4.3 3.8 3.6 3.7 - 3.8 3.7 3.7 - 3.9 CO2 21* 27 22 24 - 25 25 25 - 33* BUN 30* 10 14 15 - 15 19 10 - 13 CREATININE 0.77 0.81 0.80 0.80 - 0.56 0.53* 0.59 - 0.8 EGFR 86* 81* 82* 82* - >90 >90 >90 - >60 GLUCOSE 101 88 122* 103 - 92 118* 90 - 57* CALCIUM 9.3 8.8 8.8 8.9 - 9.0 8.6 8.3* - 8.8 MAGNESIUM - - - - - 1.7 1.6 1.7 - - PHOS 4.8 4.7 - 4.7 - 5.3* 4.6 3.6 - - ALT 17 - 15 - - - - - - 26 AST 17 - 16 - - - - - - 23 ALKPHOS 83 - 85 - - - - - - 94 - = values in this interval not [...] vertebrae, possibly with spinal cord involvement. She has received palliative RT to C/T-spine in 10/2023. She presents today for follow-up. # Papillary carcinoma of thyroid, stage III (pT4a pN1b cM0), diagnosed 08/19/2020, with locally recurrent/residual disease identified 02/05/2022, and distant recurrence in spine diagnosed 10/02/2022 - Total thyroidectomy requiring sacrifice of right laryngeal nerve 08/19/2020, with central neck dissection, tracheal resection, esophageal muscle resection, bilateral modified radical neck dissection, and parathyroid implantation of the right deltoid - WADR 157.6 mCi I-131, 03/19/2021 - Excision of right central neck mass, 02/05/2022 - SBRT to cervical spine, 2400 cGy in 2 fractions, 09/18/2022 & 09/21/2022 - C2-T2 fusion with laminectomy for partial resection of extramedullary tumor from C3-C7, 10/02/2022 - Palliative RT to C/T spine, 3,000 cGy in 5 fractions, 10/18/2023 to 10/22/2023 # Comorbidities: Hypertension, hyperlipidemia, GERD, psoriasis?, anxiety/depression. PLAN: Complete NGS unable to perform due to insufficiency of specimen; will try to obtain NGS on sample from 02/2022. Okay to initiate lenvatinib (24 mg orally once daily) whenever she receives the medication. Plans noted for repeat radioactive iodine therapy with endocrinology. She has obtained dental clearance for BMA, and will receive it through endocrinology. Monitoring for lenvatinib: - LFTs at baseline, every 2 [...] perforation, bleeding/hemorrhage, diarrhea, dehydration, wound healing complications. RTC in 4 weeks with repeat labs (CBC and CMP). She will call us with questions/concerns in the meantime. Remi Daniels MD Road Freight Brake Couplertechnical account executive Department of Hematology & Medical Oncology [facility]: documented in this encounter Miscellaneous Notes * Addendum Note - Remi Daniels MD - 12/14/2023 11:11 AM CDTAddended by: REMI DANIELS on: 12/14/2023 11:11 AM Modules accepted: Orders * Oncology Pathways Note - Remi Daniels MD - 12/14/2023 11:10 AM CDT START ON PATHWAY REGIMEN - Thyroid THYOS2 Lenvatinib (Lenvima) Always confirm dose/schedule in your pharmacy ordering system Citations: -Jody Conley, Promise M, Cynthia ASHLEY, et al. Lenvatinib versus placebo in radioiodine-refractory thyroid cancer. N. Engl. J. Med. 2015;372(7):621-630. URL: http://www.ncbi.nlm.nih.gov/pubmed/96159372 Patient Characteristics: Well Differentiated Thyroid Cancer Including Papillary, Follicular, and Hurthle Cell, Recurrent Disease - Unresected or Distant Metastases, Not a Candidate for Surgery, Iodine Relapse/Refractory or Not a Candidate for Iodine Therapy, Systemic Therapy Indicated, BRAF V600E Negative/Unknown/Awaiting Test Results and NTRK Negative/Unknown and RET Negative/Unknown, First Line Disease Type: Well Differentiated Thyroid Cancer Including Papillary, Follicular, and Hurthle Cell Therapeutic Status: Distant Metastases Surgical Candidacy: Not a Candidate for Surgery NTRK Gene Fusion Status: Negative RET Gene Fusion Status: Negative BRAF V600E Mutation Status: Negative Line of therapy: First Line Intent of Therapy: Non-Curative / Palliative Intent, Discussed with Patient documented in this encounter Plan of Treatment Upcoming Encounters Date Type Department Care Team (Late st Contact Info) Description 07/25/2024 10:00 AM HEALTH SUPPORT SPECIALIST Office Visit [facility] - Endocrinology [address] [place] [phone] Yosi Bustamante MD [address] [place] [address] 2L [place] [address] 07/26/2024 10:00 AM HEALTH SUPPORT SPECIALIST Appointment [facility] [address] [place] [phone] Neri Delgado MD [address] [place] [address] 07/26/2024 10:00 AM HEALTH SUPPORT SPECIALIST Office Visit [facility] - ENT [address] [place] [phone] Myra Farmer SLP [address] [place] [address] 2L [place] [phone] 07/26/2024 11:15 AM HEALTH SUPPORT SPECIALIST Office Visit [facility] - ENT [address] [place] [phone] Neri Delgado MD [address] [place] [address] 08/02/2024 2:20 PM HEALTH SUPPORT SPECIALIST Appointment [facility] [address] [place] [address] 08/02/2024 3:00 PM HEALTH SUPPORT SPECIALIST Office Visit [facility] - Hematology/Oncology [address] [place] [phone] Remi Daniels MD [address] [place] [phone] 08/18/2024 1:45 PM HEALTH SUPPORT SPECIALIST Office Visit [facility] - ENT [address] [place] [phone] Neri Delgado MD [address] [place] [phone] Pending Results Name Type Priority Associated Diagnoses Date /Time TEMPUS XT Pathology Cytology Routine Papillary carcinoma of thyroid (HCC) 12/10/2023 11:25 AM CDT documented as of this encounter Procedures Procedure Name Priority Date/Time Associated Diagnosis Comments TEMPUS XT Routine 12/10/2023 11:25 AM CDT Papillary carcinoma of thyroid (HCC) documented in this encounter Visit Diagnoses Diagnosis Papillary carcinoma of thyroid (HCC)- Primary Malignant neoplasm of thyroid gland Encounter for antineoplastic chemotherapy Cancer, metastatic to bone (HCC) Secondary malignant neoplasm of bone and bone marrow documented in this encounter Care Teams Newswriter Relationship Specialty Start Date End Date Yaya Villatoro MD [address] [place] [phone] PCP - General Internal Medicine 05/04/23 Joseph Manzanares MD [address] [place] [address] Internal Medicine 04/21/23 documented as of this encounter
--- OUTSIDE RECORDS SUMMARY | 2024-07-23 07:08 | XMS_ITS | Encounter Summary ---
Author Organization [facility] Address [address] [facility] [place] [address] Care Team Providers Care Manager Care Management Name Role Phone Joseph Manzanares MD Unavailable Yaya Villatoro MD Primary Care Provider [phone]- [phone] Encounter Details Date Type Department Care Team (Latest Contact Info) Description 12/10/2023 10:49 AM CDT - 12/10/2023 11:[address] [facility] Hospital Encounter [facility]RAWSTATION [address] [facility], [address] [place] [address] Yaya Villatoro MD [address] [facility] [address] [place] [address] Discharge Disposition: Home or Self [...] Date Recorded PHQ2 TOTAL SCORE 1 11/25/2022 [facility] [place] [facility] - Occupational Stress [...] naloxone HCl (Narcan) 4 MG/0.1ML nasal spray [place] 1 (one) spray into the nose as [...] 180 days 1 mL 2 10/25/2023 4 lenvatinib (Lenvima) 2 x 10 MG & 4 MG capsuleIndications:Papil rajinder carcinoma of thyroid (HCC) Take two 10 mg capsules and one 4 mg capsule (24 mg total) by mouth once a day. 90 Each 12/14/2023 lenvatinib (Lenvima) 2 x 10 MG & 4 MG capsuleIndications:Papil rajinder carcinoma of thyroid (HCC) Take two 10 mg capsules and one 4 mg capsule (24 mg total) by mouth once a day. 90 Each 12/10/2023 4 documented as of this encounter Plan of Treatment Upcoming Encounters Date Type Department Care Team (Late st Contact Info) Description 07/25/2024 10:00 AM HOG RIBBER Office Visit [facility] - Endocrinology [address] [place] [phone] Yosi Bustamante MD [address] [place] [address] 2L [place] [address] 07/26/2024 10:00 AM HOG RIBBER Appointment [facility] [address] [place] [address] Neri Delgado MD [address] [place] [phone] 07/26/2024 10:00 AM HOG RIBBER Office Visit [facility] - ENT [address] [place] [phone] Myra Farmer, MANAGER GYN [address] [place] [address] 2L [place] [phone] 07/26/2024 11:15 AM HOG RIBBER Office [facility] - ENT [address] [place] [phone] Neri Delgado MD [address] [place] [address] 08/02/2024 2:20 PM HOG RIBBER Appointment [facility] [address] [place] [address] 08/02/2024 3:00 PM HOG RIBBER Office Visit [facility] - Hematology/Oncology [address] [place] [address] [place] [phone] Remi Beckett MD [address] [place] [address] 08/18/2024 1:45 PM HOG RIBBER Office Visit [facility] - ENT [address] [place] [phone] Neri Delgado MD [address] [place] [phone] documented as of this encounter Procedures Procedure Name Priority Date/Time Associated Diagnosis Comments THYROGLOBULIN REFLEX PROFILE Routine 12/10/2023 10:54 AM CDT Postoperative hypothyroidism Thyroid cancer (HCC) Hypocalcemia Other hypoparathyroidism Malignant tumor of thyroid gland (HCC) Cancer, metastatic to bone (HCC) THYROGLOBULIN BY ANTONIETA RFLXED Routine 12/10/2023 10:54 AM CDT Postoperative hypothyroidism Thyroid cancer (HCC) Hypocalcemia Other hypoparathyroidism Malignant tumor of thyroid gland (HCC) Cancer, metastatic to bone (HCC) CBC W AUTO DIFFERENTIAL STAT 12/10/2023 10:54 AM CDT Malignant tumor of thyroid gland (HCC) COMPREHENSIVE METABOLIC PANEL STAT 12/10/2023 10:54 AM CDT Malignant tumor of thyroid gland (HCC) PHOSPHORUS BLOOD Routine 12/10/2023 10:5 4 AM CDT Postoperative hypothyroidism Thyroid cancer (HCC) Hypocalcemia Other hypoparathyroidism Malignant tumor of thyroid gland (HCC) Cancer, metastatic to bone (HCC) TSH Routine 12/10/2023 10:54 AM CDT Postoperative hypothyroidism Thyroid cancer (HCC) Hypocalcemia Other hypoparathyroidism Malignant tumor of thyroid gland (HCC) Cancer, metastatic to bone (HCC) documented in this encounter Results * (ABNORMAL) THYROGLOBULIN BY ANTONIETA RFLXED (12/10/2023 10:54 AM CDT) Thyroglobulin by ANTONIETA 352.5(H) 1.5 - 38.5 ng/mL 12/13/2023 6:08 PM CDT [facility] ([facility]) Comment: According to the National Academy [...] is 0.1 ng/mL Thyroglobulin measured by Lisbet Delancey Immunometric Assay Blood BLOOD SPECIMEN / Unknown Lab Venipuncture / Unknown 12/10/2023 10:54 AM CDT 12/10/2023 10:56 AM CDT Narrative [facility] ([facility]) - 12/13/2023 6:08 PM CDT Performed at: ??01 - [facility] [address] [place], [place] ??[id number] Clean Up Helper Banquet: Oral Melendez PhD, Phone: ??[phone] Yosi Bustamante MD LAB - CHEMISTRY ORD ERABLES Performing Organization Address City/[facility]/ZIP Co de Phone Number [facility] ([facility]) [address] [place] [address] * PHOSPHORUS BLOOD (12/10/2023 10:54 AM CDT) Pathologist [facility] Phosphorus 4.8 2.9 - 5.1 mg/dL 12/10/2023 11:26 AM CDT [facility] Blood BLOOD SPECIMEN / Unknown Lab Venipuncture / Unknown 12/10/2023 10:54 AM CDT 12/10/2023 10:56 AM CDT Yosi Bustamante MD LAB - CHEMISTRY ORD ERABLES [facility] [address] [place] [address], [facility] [phone] * (ABNORMAL) COMPREHENSIVE METABOLIC PANEL (12/10/2023 10:54 AM CDT) BUN 30(H) 7 - 26 mg/dL 12/10/2023 11:26 AM [facility] Creatinine 0.77 0.56 - 0.96 mg/dL 12/10/2023 11:26 AM [facility] Sodium 139 136 - 145 mmol/L 12/10/2023 11:26 AM [facility] Potassium 4.3 3.5 - 4.5 mmol/L 12/10/2023 11:26 AM [facility] Chloride 108(H) 98 - 107 mmol/L 12/10/2023 11:26 AM [facility] CO2 21(L) 22 - 29 mmol/L 12/10/2023 11:26 AM [facility] Glucose 101 70 - 115 mg/dL 12/10/2023 11:26 AM [facility] Calcium 9.3 8.4 - 10.2 mg/dL 12/10/2023 11:26 AM [facility] Protein Total 7.8 6.0 - 8.3 g/dL 12/10/2023 11:26 AM [facility] Albumin 4.1 3.4 - 5.0 g/dL 12/10/2023 11:26 AM [facility] Bilirubin Total 0.3 0.2 - 1.2 mg/dL 12/10/2023 11:26 AM [facility] Alkaline Phosphatase 83 40 - 150 U/L 12/10/2023 11:26 AM [facility] ALT 17 5 - 55 U/L 12/10/2023 11:26 AM [facility] AST 17 5 - 34 U/L 12/10/2023 11:26 AM [facility] Anion Gap 10 6 - 16 12/10/2023 11:26 AM [facility] BUN/Creatinine Ratio 39(H) 7 - 23 12/10/2023 11:26 AM [facility] Osmolality Calculated 294 275 - 295 mOsm/kg 12/10/2023 11:26 AM [facility] Albumin/Globulin Ratio 1.1 1.1 - 2.3 12/10/2023 11:26 AM [facility] eGFR by CKD-EPI 86(L) >=90 mL/min/1.7 3 m2 12/10/2023 11:26 AM [facility] Blood BLOOD SPECIMEN / Unknown Lab Venipuncture / Unknown 12/10/2023 10:54 AM CDT 12/10/2023 10:56 AM CDT Remi Beckett MD LAB - CHEMISTRY ORDERABLES [facility] [address] [place] [address], [facility] [phone] * (ABNORMAL) CBC WITH DIFFERENTIAL (12/10/2023 10:54 AM CDT) WBC 7.7 4.0 - 10.7 x10E9/L 12/10/2023 10:59 AM [facility] RBC Count 5.36(H) 3.90 - 5.20 x10E12/L 12/10/2023 10:59 AM [facility] Hemoglobin 14.9 11.9 - 15.8 g/dL 12/10/2023 10:59 AM [facility] Hematocrit 45.1 34.8 - 46.1 % 12/10/2023 10:59 AM [facility] MCV 84.1 80.0 - 98.0 fL 12/10/2023 10:59 AM [facility] MCH 27.8 26.7 - 33.6 pg 12/10/2023 10:59 AM [facility] MCHC 33.0 31.7 - 36.3 g/dL 12/10/2023 10:59 AM [facility] RDW-CV 13.1 11.3 - 14.8 % 12/10/2023 10:59 AM [facility] Platelet Count 285 150 - 420 x10E9/L 12/10/2023 10:59 AM [facility] MPV 9.6 7.8 - 11.4 fL 12/10/2023 10:59 AM [facility] Neutrophil % 70.4 41.0 - 74.0 % 12/10/2023 10:59 AM [facility] Lymphocyte % 17.0 17.0 - 47.0 % 12/10/2023 10:59 AM [facility] Monocyte % 9.4 3.0 - 11.0 % 12/10/2023 10:59 AM [facility] Eosinophil % 2.2 0.0 - 7.0 % 12/10/2023 10:59 AM [facility] Basophil % 0.6 0.0 - 1.6 % 12/10/2023 10:59 AM [facility] Immature Granulocytes % 0.4 0.0 - 1.0 % 12/10/2023 10:59 AM [facility] Neutrophil Absolute 5.42 1.60 - 7.50 x10E9/L 12/10/2023 10:59 AM [facility] Lymphocyte Absolute 1.31 1.00 - 4.40 x10E9/L 12/10/2023 10:59 AM [facility] Monocyte Absolute 0.72 0.15 - 1.00 x10E9/L 12/10/2023 10:59 AM [facility] Eosinophil Absolute 0.17 0.00 - 0.60 x10E9/L 12/10/2023 10:59 AM [facility] Basophil Absolute 0.05 0.00 - 0.13 x10E9/L 12/10/2023 10:59 AM [facility] Blood BLOOD SPECIMEN / Unknown Lab Venipuncture / Unknown 12/10/2023 10:54 AM CDT 12/10/2023 10:56 AM CDT Remi Beckett MD LAB - HEMATOLOGY ORDERABLES [address] [address], [facility] [phone] * THYROGLOBULIN REFLEX PROFILE (12/10/2023 10:54 AM CDT) Thyroglobulin Antibody <1.0 0.0 - 0.9 IU/mL 12/13/2023 6:08 PM CDT [facility] ([facility]) Comment: Thyroglobulin Antibody measured by Lisbet Marcos Methodology It should be noted that the presence of thyroglobulin antibodies may not be pathogenic nor diagnostic, especially at very low levels. The assay equipment maintenance tech has found that four percent of individuals without evidence of thyroid disease or autoimmunity will have positive TgAb levels up to 4 IU/mL. Blood BLOOD SPECIMEN / Unknown Lab Venipuncture / Unknown 12/10/2023 10:54 AM CDT 12/10/2023 10:56 AM CDT Narrative [facility] ([facility]) - 12/13/2023 6:08 PM CDT Performed at: ??01 - [facility] [address] [place], [place] ??[id number] Clean Up Helper Banquet: Oral Melendez PhD, Phone: ??[phone] Yosi Bustamante MD LAB - CHEMISTRY ORD ERABLES Performing Organization Address City/[facility] Co de Phone Number [facility]) [address] [place] [address] * (ABNORMAL) TSH (12/10/2023 10:54 AM CDT) TSH <0.010(L) 0.350 - 4.940 uIU/mL 12/10/2023 11:43 AM CDT [facility] Blood BLOOD SPECIMEN / Unknown Lab Venipuncture / Unknown 12/10/2023 10:54 AM CDT 12/10/2023 10:56 AM CDT Yosi Bustamante MD LAB - CHEMISTRY ORD ERABLES [facility] [address] [place] [address], [facility] [phone] documented in this encounter Visit Diagnoses Diagnosis Postoperative hypothyroidism Postsurgical hypothyroidism Thyroid cancer (HCC) Malignant neoplasm of thyroid gland Hypocalcemia Other hypoparathyroidism (HCC) Malignant tumor of thyroid gland (HCC) Malignant neoplasm of thyroid gland Cancer, metastatic to bone (HCC) Secondary malignant neoplasm of bone and bone marrow documented in this encounter Care Teams Manager Care Management Relationship Specialty Start Date End Date Yaya Villatoro MD [address] [facility] [address] [place] [phone] PCP - General Internal Medicine 05/04/23 Joseph Manzanares MD [address] [place] [phone] Internal Medicine 04/21/23 documented as of this encounter
--- OUTSIDE RECORDS SUMMARY | 2024-07-23 07:08 | XMS_ITS | Encounter Summary ---
Author Organization [facility] Health Address [address] [place] [address] Care Team Providers Care Taker Down Name Role Phone Joseph Manzanares MD Unavailable Yaya Villatoro MD Primary Care Provider [phone] Reason for Visit * Reason Onset Date Comments Appointment 11/02/2023 Encounter Details Date Type Department Care Team (Late st Contact Info) Description 11/02/[address] [facility] ONC [address] [place] [address] Alize French, JOSY Appointment Social [...] Date Recorded PHQ2 TOTAL SCORE 1 11/25/2022 [facility] - Occupational Stress Questionnaire Answer Date [...] Telephone Encounter - Alize French RN - 11/02/2023 1:29 PM CDT The patient called , stated she continue to experience throat pain and difficulty swallowing, with no relief with starting antibiotics. States she also experiencing diarrhea and increase thirst. Po intake includes 1 ensure/D and approximately 6 cups of water/day. Dr Mcintosh informed . Spoke withthe patient, instructed of an appointment with Dr. Mcintosh on 11/22/2023 after completion of 's appointment. documented in this encounter Plan of Treatment Upcoming Encounters Date Type Department Care Team (Late st Contact Info) Description 07/25/2024 10:00 AM BLOCKING MACHINE TENDER Office Visit [facility] - Endocrinology [address] [place] [phone] Yosi Bustamante MD [address] [place] [address] [address]L [place] [address] 07/26/2024 10:00 AM BLOCKING MACHINE TENDER Appointment [facility] [address] [place] [phone] Neri Delgado MD [address] [place] [phone] 07/26/2024 10:00 AM BLOCKING MACHINE TENDER Office Visit [facility] - ENT [address] [place] [phone] Myra Farmer, DRY CHAIN WORKER [address] [place] [address] [address] [place] [phone] 07/26/2024 11:15 AM BLOCKING MACHINE TENDER [facility] [address] [place] [phone] Neri Delgado MD [address] [place] [phone] 08/02/2024 2:20 PM BLOCKING MACHINE TENDER Appointment [facility] [address] [place] [address] 08/02/2024 3:00 PM BLOCKING MACHINE TENDER Office Visit [facility] - Hematology/Oncology [address] [place] [phone] Remi Beckett MD [address] [place] [phone] 08/18/2024 1:45 PM BLOCKING MACHINE TENDER Office Visit [facility] - ENT [address] [place] [phone] Neri Delgado MD [address] [place] [phone] documented as of this encounter Visit Diagnoses Not on filedocumented in this encounter Care Teams Taker Down Relationship Specialty Start Date End Date Yaya Villatoro MD [address] [place] [phone] PCP - General Internal Medicine 05/04/23 Joseph Manzanares MD [address] [place] [phone] Internal Medicine 04/21/23 documented as of this encounter
--- OUTSIDE RECORDS SUMMARY | 2024-07-23 07:08 | XMS_ITS | Encounter Summary ---
Author Organization [facility] Address [address] [place] [address] Care Team Providers Care Assembler Corncob Pipes Name Role Phone Joseph Manzanares MD Unavailable Yaya Villatoro MD Primary Care Provider [phone] Reason for Referral * Radiology Services (Routine) - Closed Specialty Diagnoses / Procedures Referred By Contac t Referred To Contact Hematology-Oncology Diagnoses Malignant tumor of thyroid gland (HCC) Procedures MRI BRAIN WWO CONTRAST Remi Beckett MD [address] [place] [address] Referral ID Status Reason Start Date Expiration Date Visits Re quested Visits Authorized [id number] Closed 10/29/2023 11/27/2023 1 1 * Laboratory Services (Routine) - Pending Review Specialty Diagnoses / Procedures Referred By Contac t Referred To Contact Hematology and Oncology Diagnoses Malignant tumor of thyroid gland (HCC) Procedures TEMPUS XF Remi Beckett MD [address] [place] [address] Referral ID Status Reason Start Date Expiration Date V isits Requested Visits Authorized [id number] Pending Review 10/21/2023 10/20/2024 1 1 * Laboratory Services (Routine) - Closed Specialty Diagnoses / Procedures Referred By Contac t Referred To Contact Hematology and Oncology Diagnoses Malignant tumor of thyroid gland (HCC) Procedures TEMPUS XT Remi Beckett MD [address] [place] [address] Referral ID Status Reason Start Date Expiration Date Visits Re quested Visits Authorized [id number] Closed 10/21/2023 10/20/2024 1 1 * Consultation (Routine) - Pending Review Specialty Diagnoses / Procedures Referred By Yuan robins Referred To Contact Diagnoses Cancer, metastatic to bone (HCC) Remi Beckett MD [address] [place] [address] Referral ID Status Reason Start Date Expiration Date Visits Requested Visits Authorized [id number] Pending Review Specialty Services Required 10/21/2023 10/20/2024 1 1 * OP/Amb RFL Auth (Routine) - Pending Review Specialty Diagnoses / Procedures Referred By Yuan robins Referred To Contact Diagnoses Malignant tumor of thyroid gland (HCC) Procedures EKG 12-LEAD Remi Beckett MD [address] [place] [address] Referral ID Status Reason Start Date Expiration Date V isits Requested Visits Authorized [id number] Pending Review 10/21/2023 10/20/2024 1 1 Reason for Visit * Reason Comments Establish Care Thyroid cancer Encounter Details Date Type Department Care Team (Latest Contact Info) Description 10/21/2023 1:20 PM CDT Office Visit [facility] - Hematology/Oncology [address] [place] [id number] Remi Beckett MD [address] [place] [address] Malignant tumor of thyroid gland (HCC) (Primary Dx); Cancer, metastatic to bone (HCC); Encounter for antineoplastic chemotherapy Social History Tobacco [...] Date Recorded PHQ2 TOTAL SCORE 1 11/25/2022 [facility] [place] [facility] Occup[facility] - Occupational Stress [...] Sign Reading Time Taken Comments Blood Pressure 121/78 10/21/2023 1:17 PM CDT Pulse 96 10/21/2023 1:17 PM CDT Temperature 36.9 ??C (98.4 ??F) 10/21/2023 1:17 PM CD T Respiratory Rate 20 10/21/2023 1:17 PM CDT Oxygen Saturation 98% 10/21/2023 1:17 PM CDT Inhaled Oxygen Concentration - - Weight 64.3 kg (141 lb 11.2 oz) 10/21/2023 1:17 PM CDT Height 154 cm (5' 0.63) 10/21/2023 1:17 PM CDT Body Mass Index 27.1 10/21/2023 1:17 PM CDT documented in this [...] this encounter Patient Instructions * Patient Instructions* Amadeo Robles MD - 10/21/2023 2:13 PM CDT Thank you for entrusting your healthcare to the physicians and other specialists at the [facility] Hematology & Oncology [facility]. [facility] Hematology/Oncology Clinic: For symptom management or prescription questions during business hours (Mon-Fri 8AM-4:30PM), pleasecall the triage nurse. Outside of business hours, please call the hematology/oncology doctor on-call. Hem/Onc Doctor On-Call (After hours, weekends, holidays): [phone], Dial [phone] (Nursing Informatics Clinical Analyst) and askfor the hematology/oncology fellow on-call and [...] documented in this encounter Progress Notes * Amadeo Robles MD - 10/21/2023 1:20 PM CDT HEMATOLOGY-ONCOLOGY CLINIC NOTE Date of Visit: 10/21/2023 Reason for Visit: Metastatic papillary cancer of thyroid SUBJECTIVE: HISTORY OF PRESENT ILLNESS: Brisa Hogan is a 63 year old female with recurrent metastatic papillary cancer, see oncology history below who has presented to clinic to discuss treatment options for metastatic papillary cancer. She has had myriad of complications due to thyroid cancer. Ever since the disease spread to her spine she does not have much of a centrifugal screen tender in the right hand, experiences numbness and her arm and hand. 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 She is currently going to rehab to get stronger. She also experiences pain, the pain is in the neck and pain between her shoulders, intermittent, sharp, moderate to severe, causes her to wake up at night. She has started using [place] which brings the pain down to 0/10, averages to 2 pills a day, uses celebrex and gabapentin as adjuncts. Since she can't close her right hand she needs help with ADLs. She denies any nausea or vomiting, has been feeling quite tired after strating radiation. Her appetite is good and weight is stable Family history: Non contributory. 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 08/01/2020: FNA of right thyroid nodule 08/19/20: total thyroidectomy??requiring??sacrifice of Right??RLN/tracheal resection/reanastamosis,??bilateral lateral??and central neck dissection (Comer). Pathology consistent with papillary carcinoma, 3.2 cm in greatest dimension, extrathyroidal extension present, invading subcutaneous soft tissues, larynx, trachea, esophagus or recurrent laryngeal nerve, angioinvasion present, lymphatic invasion present, PNI present, margins involved by carcinoma (right tracheal margins), lymph nodes involved, JADON present, largest metastatic deposit 2.4 cm, (pT4a pN1b) 02/05/2022: Excision of right central neck mass- Palpable tumor approximately 1 cm in size overlying the right thyroid ala and cricothyroid membrane excised including overlying strap musculature. (Massa) 03/19/21: WARD 09/21/22 Completed 2400 Gy to the cervical spine (Arnaldo) 09/30/2023: MRI cervical spine: Redemonstration of postoperative findings of C3- C7 decompressive laminectomy for partial resection of the extramedullary tumor, and C2-T2 posterior instrumented fusion, Interval development of new marrow replacing lesions involving T1 vertebral body body, posterior aspect of C4 vertebral body, dens of C2 vertebral body suggesting progression/new metastatic lesions.There is also associated interval development of ventral epidural extension of the tumor through the levels of C4-C5 to T1-T2 inferiorly and associated ventral effacement of the CSF space/moderate central canal stenosis through the levels of C5-C6 to C7-T1 inferiorly. 10/02/2022: C2-T2 fusion and decompression C3-C7 and resection extramedullary spine tumor (Dalia) 10/02/2022: Pathology: Metastatic papillary carcinoma. Frozen section diagnosis is confirmed. Sections show fibrocollagenous tissue with focal infiltration of malignant epithelial tumor cells that focally form glands. Immunohistochemical stains for TTF-1, CK7, CK20 and thyroglobulin were performed with adequate controls. The tumor cells are positive for TTF-1, CK7 and very focally for thyroglobulin. The tumor cells are negative for CK20 immunostaining. 10/06/2023: PET/CT Multifocal areas of FDG activity in the cervical spine and within the T1 vertebral body correlate with MRI findings and are compatible with metastasis. Small focus of FDG activity within the right thyroidectomy bed is concerning for disease recurrence. 10/21/2023: TSH < 0.010, thyroglobulin <1 10/18/2023: Started palliative RT to CT spine ( 600cGy ) INTERVAL HISTORY: ACTIVE PROBLEMS: Patient Active Problem List: Psychophysiologic insomnia Chronic fatigue Snoring Obsessive-compulsive disorder Headache Primary osteoarthritis of left hip Nicotine dependence High cholesterol Other psoriasis Complete paralysis of right vocal cord Hoarseness Tracheal mass Lymphadenopathy of head and neck region Cellulitis Postoperative hypothyroidism Thyroid cancer (CMS/HCC) Hypocalcemia Other hypoparathyroidism (CMS/HCC) Neoplasm of uncertain behavior of skin Other seborrheic keratosis Depression, unspecified Need for influenza vaccination Left shoulder pain Urinary incontinence Chronic pain after cancer treatment Cancer, metastatic to bone (HCC) Cervical spine tumor Gastroesophageal reflux disease Lumbar radiculopathy Secondary malignant neoplasm of bone (HCC) Malignant tumor of thyroid gland (HCC) PAST MEDICAL HISTORY: Past Medical History: Diagnosis Date ??? Anxiety and depression ??? Degenerative disc disease, lumbar ??? Disorder of thyroid mass on thyroid - right ??? GERD (gastroesophageal reflux disease) ??? High cholesterol ??? HLD (hyperlipidemia) ??? Hypocalcemia 10/14/2020 ??? Osteoarthritis of one hip, left ??? Other hypoparathyroidism 10/14/2020 ??? Postoperative hypothyroidism 10/14/2020 ??? Psoriasis ??? Seasonal allergies ??? Snoring ??? SOB (shortness of breath) 2 thyroid mass ??? Thyroid cancer (HCC) 10/14/2020 ??? Tracheal mass Past Surgical History: Procedure Laterality Date ??? Bilateral Tubal Ligation (BTL) ??? Cervical Fusion N/A 10/02/2022 N/A; C2-T2 fusion and decompression C3-C7 and resection extramedullary spine tumor ??? Section ??? ENDOSCOPY, COLON, DIAGNOSTIC no polyp ??? ENT SURGERY N/A 08/19/2020 N/A; TOTAL THYROIDECTOMY WITH CENTRAL NECK DISSECTION, RIGHT AND LEFT NECK DISSECTIONS ??? ENT SURGERY N/A 08/19/2020 N/A; TRACHEAL TUMOR RESECTION ??? ENT SURGERY Right 02/05/2022 Right; EXCISION RIGHT CENTRAL NECK MASS ??? LARYNGOSCOPY N/A 08/19/2020 N/A; DIRECT LARYNGOSCOPY WITH BIOPSY ??? Polypectomy cervical ONCOLOGIC DETAILS: Cancer Staging No matching staging information was found for the patient. Oncology History No history exists. 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 albuterol HFA (Proventil; Ventolin; Proair) 108 (90 Base) MCG/ACT inhaler Inhale 2 (two) puffs by mouth every 6 hours as needed ??? atorvastatin (Lipitor) 40 MG tablet TAKE 1 TABLET BY MOUTH EVERYDAY AT BEDTIME ??? buPROPion SR 12hr (Wellbutrin-SR) 100 MG tablet Take 1 (one) tablet by mouth 2 times daily ??? calcitriol (Rocaltrol) 0.5 MCG capsule Take 1 (one) capsule by mouth once daily Reasons: Low Amount of Calcium in the Blood ??? celecoxib (CeleBREX) 200 MG capsule Take 1 (one) capsule by mouth once daily ??? cyclobenzaprine (Flexeril) 5 MG tablet Take 1 (one) tablet by mouth 3 times daily as needed ??? denosumab (Prolia) 60 MG/ML SC injection Inject 1 mL subcutaneously once for 1 dose ??? famotidine (PEPCID) 20 MG tablet Take 1 (one) tablet by mouth 2 times daily as needed ??? fluticasone propionate (Flonase) 50 MCG/ACT nasal spray SPRAY 2 SPRAYS INTO EACH NOSTRIL EVERY DAY ??? gabapentin (Neurontin) 300 MG capsule Take 1 (one) capsule by mouth 3 times daily ??? HYDROcodone-acetaminophen ([place]) 5-325 MG tablet Take 1 (one) tablet by mouth every 8 hours asneeded for Pain ??? hydrOXYzine HCl (Atarax) 25 MG tablet Take 1 (one) tablet to 2 (two) tablets by mouth as needed ??? levothyroxine (Synthroid) 112 MCG tablet Take 1 (one) tablet by mouth daily before breakfast Except Wednesday take one and a half pills Reasons: Cancer of Thyroid, Underactive Thyroid ??? naloxone HCl (Narcan) 4 MG/0.1ML nasal spray [place] 1 (one) spray into the nose as needed ??? oxybutynin CR 24hr (Ditropan-XL) 5 MG tablet Take 1 (one) tablet by mouth once daily ??? pantoprazole EC (Protonix) 40 MG tablet TAKE ONE TABLET BY MOUTH ONCE DAILY FOR STOMACH ??? PARoxetine (PAXIL) 40 MG tablet Take 1 (one) tablet by mouth once daily ??? traZODone (DESYREL) 50 MG tablet Take 1 (one) tablet by mouth at bedtime No current facility-administered medications for this visit. ALLERGIES: Allergies Allergen Reactions ??? Kiwi Extract Anaphylaxis REVIEW OF SYSTEMS: A 10 point review of systems was performed and negative except as listed in the history above. OBJECTIVE: PHYSICAL EXAM: Vitals: BP 121/78 Pulse 96 Temp 98.4 ??F (36.9 ??C) Resp 20 Ht 1.54 m (5' 0.63) Wt 64.3 kg (141 lb 11.2 oz) SpO2 98% Wt Readings from Last 3 Encounters: 10/21/23 64.3 kg (141 lb 11.2 oz) 10/18/23 64.2 kg (141 lb 9.6 oz) 10/11/23 64.3 kg (141 lb 12.8 oz) General appearance: Comfortable, not [...] normal, atraumatic, no cyanosis or edema. Skin: Skin color, texture, turgor normal. No rashes or lesions. Lymph nodes: No palpable cervical, supraclavicular, axillary or inguinal lymphadenopathy. Neurologic: AAO, no gross motor deficits. ECO-2 [place] Performance Status: 80% - Normal activity with effort; some signs or symptoms of disease LABS: Recent Labs Component Name 10/07/221110/05/22223310/05/226 WBC 8.1 8.9 9.3 RBC 3.03* 3.18* 3.32* HGB 9.2* 9.7* 10.2* HCT 27.3* 29.2* 30.5* MCV 90.1 91.8 91.9 MCHC 33.7 33.2 33.4 PLTCOUNT 263 239 239 NEUTPCT 59.0 67.4 68.2 NEUTABS 4.75 6.03 6.32 Recent Labs Component Name 09/09/23 1343 03/25/23 1224 12/24/22 1059 10/07/22 0012 10/05/22223310/05/22 0436 07/24/20 1427 03/07/20 1519 POTASSIUM 3.7 - - 3.8 3.7 3.7 - 3.9 CO2 24 - - 25 25 25 - 33* BUN 15 - - 15 19 10 - 13 CREATININE 0.80 - - 0.56 0.53* 0.59 - 0.8 EGFR 82* 73* 89* >90 >90 >90 - >60 GLUCOSE 103 - - 92 118* 90 - 57* CALCIUM 8.9 - - 9.0 8.6 8.3* - 8.8 MAGNESIUM - - - 1.7 1.6 1.7 - - PHOS 4.7 - - 5.3* 4.6 3.6 - - ALT - - - - - - - 26 AST - - - - - - - 23 ALKPHOS - - - - - - - 94 - = values in this interval not displayed. RADIOLOGY: PET CT WHOLE BODY Result Date: 10/06/2023 PROCEDURE: PET CT WHOLE BODY, DATE/TIME OF EXAM: 10/06/2023 3:39 PM, LOCATION [facility] INDICATION: E89.0: Postoperative hypothyroidism C73: Thyroid cancer (HCC) E20.89: Other hypoparathyroidism ADDITIONAL CLINICAL INFORMATION: Ordering Provider Reason For Exam: thyroid cancer, increasing quantitative thyroglobulin COMPARISON: PET/CT dated 12/25/2021 and nuclear medicine thyroid scan dated 08/19/2022. MRI cervical spine dated 10/01/2023 HISTORY: 63-year-old female with metastatic recurrent papillary thyroid carcinoma who is now status post total thyroidectomy and C-spine fixation due to bony metastasis. Thyroglobulin was 385.5 on 09/09/2023. Evaluate for subsequent treatment strategy. TECHNIQUE: 8.70 mCi of F-18 FDG by IV in the right antecubital fossa. PET/CT image acquisition from top of the head to feet after approximately 60 minutes post-injection with the CT being low-dose, non- contrast. No separate report for the CT. CT was used for attenuation correction and anatomic localization. Blood glucose level at the time of injection was 98 mg/dl. Patient's BMI is 26.08 kg/m??. FINDINGS: For reference, SUVmax of liver is 3.5. Head and neck: Normal metabolic uptake in thebrain. Mild periodontal disease. Within the right thyroidectomy bed, there is a small focus of FDG a ctivity with a SUV max of 5.9. Chest: There is a 5 mm right lower lobe nodule without significant FDG uptake which is too small to characterize. Evidence of pneumothorax or pleural effusion. No abnormal FDG avid mediastinal nodes. Benign appearing bilateral axillary nodes. Abdomen and pelvis: The liver, kidneys, adrenal glands, spleen and pancreas are grossly unremarkable. Mild uptake within the esophagus and stomach are likely related to inflammation. Normal FDG activity is seen throughout thebowel. Benign-appearing bilateral inguinal nodes. Musculoskeletal: Postoperative changes of a C2-X1kerltfupf instrumented spinal fusion. There are multifocal areas of FDG activity in the cervical spine with a SUV max of 6.6 at C2 and 8.9 in the lower cervical spine. Some of the FDG activity appears to extend through the lower cervical foramina. There is diffuse uptake within the T1 vertebral body with a SUV max of 9.7. Severe left hip osteoarthritis with reactive changes. IMPRESSION: 1.Postoperative changes of a C2-T2 posterior [...] follow-up. Report dictated by Froylan Ny DO (development vice president). > Dictated by Froylan Ny DO (Wheel Cutter) 10/06/2023 3:25 PM ITiesha DO have personally reviewed and interpreted this examinati on/study. > Interpreting Provider: Tiesha Sy DO on 10/06/2023 5:11 PM MRI CERVICAL SPINE WWO CONT Result Date: 10/01/2023 PROCEDURE: MRI CERVICAL SPINE WWO CONT, DATE/TIME OF EXAM: 10/01/2023 10:44 AM, LOCATION [facility] INDICATION: C79.51: Cancer, metastatic to bone (HCC) D49.2: Cervical spine tumor ADDITIONAL CLINICAL INFORMATION: Ordering Provider Reason For Exam: sean marquez COMPARISON: MRI cervical spine 03/25/2023 TECHNIQUE: Cervical spine MRI was performed without and with IV contrast, according to standard protocol. CONTRAST: GADOBUTROL 1 MMOL/ML IV SSM SO:5 mL FINDINGS: Redemonstration of postoperative findings of C3-C7 decompressive laminectomy for resection of the extramedullary tumor, posterior instrumented fusion with the through the levels of C2-T2 with vertical interconnecting rods and bilateral lateral mass/pedicular screws bilaterally at the level of C2-C3 and T1-T2, unilateral right-sided screws through the levels of C4-C7... Susceptibility artifact from the hardwarelimits evaluation The replacement throughout the marrow could be sequela of post radiation changes. Redemonstration of marrow replacing lesions along the posterior aspect of C5 and C6 vertebral bodies, with STIR hyperintensity, similar to prior study, most likely secondary to known metastatic lesions.. Interval new T1 hypointensity and STIR hyperintensity involving the T1 vertebral body,, odontoid process of C2 vertebral body, new compared to prior study (image 10, series 4 image 8, series 4) evaluation of associated enhancement is limited secondary to artifact from the hardware. There is interval new extension of STIR hyperintensity/T1 hypointensity into the posterior aspect of C4 vertebral body (image 9, series 7) also suspicious for metastatic replacing lesion. There is associated extension of nodular enhancement into the ventral epidural region through the levels of C4-C5 to T1-T2 inferiorly measuring approximately 3 mm in maximum thickness (image 10, series 8). There is associated moderate central canal stenosis through the levels of C5-C6, C6-C7 secondary to disc degenerative changes and interval increase to epidural component of the tumor. There is also epidural collection predominantly along the right lateral aspect and along the levels of C7-T1 causing associated mild to moderate central canal stenosis (image 32, series 6). However posterior decompression noted through the levels of C5-C6, C6-C7 from prior laminectomies. Persistent enhancing soft tissue lesions in the anterolateral aspect of the C5-C6, C6-C7 neural foramina and also involving the adjacent ventral epidural space, posterior elements and vertebral bodies again noted. Persistent enhancing soft tissues are again noted in the left C5-C6 neural foramen extending into the adjacent ventral epidural space, anterolateral extraforaminal compartment measuring approximately 2.1 x 1 cm previously measured 2.1 x 7 cm. There is interval persistent narrowing of the adjacent left vertebral artery flow void. Interval new increased soft tissue in the left C4-C5 neural foramina with associated anterior displacement and narrowing of the adjacent left vertebral artery flow void (image 19, series 6) suggesting extension into the left transverse foramina. Persistent enhancing soft tissue enhancement in the left C6-C7 neural foramen measures approximately 1.5 x 1.2 cm (image 26, series 9) previously measured1.1 x 1.2 cm, (series 7, image 26), mildly increased compared to prior study. There is associated increased narrowing of the adjacent left vertebral artery (image 26, series 9). Interval increased ventral epidural soft tissue component measuring about 5 mm in thickness and associated moderate central canal stenosis (image 32, 30, series 6). 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 There is narrowing of the left vertebral artery through the levels of C4, to the level of C6-C7 compared to prior study (image 26, series 6) could be secondary to compression from surrounding soft tissue lesion otherwise normal appearance of the bilateral vertebral artery flow voids. No prevertebralsoft tissue swelling. No enlarged lymph nodes noted. Nonspecific 1 to 1.2 cm nodular soft tissue along the left anterolateral aspect of the trachea unchanged compared to study from 03/25/2023 with STIR hyperintensity. (Image 31, series 9 image 7, series 8) Evaluation of the spinal cord signal is limited compared to prior study. There is interval new focus of STIR hyperintensity at the level of C4-C5, not conspicuous on T2 imaging could be artifactual versus sequela of myelomalacia, continued attention recommended on follow-up. No definite nodular enhancement noted along the laminectomy bed. The remaining findings appear grossly similar to the prior as follows: Mild retrolisthesis of C4 on C5. Mild anterolisthesis of C7 on T1. The alignment is otherwise maintained. Vertebral bodies are normal in height without evidence of compression fractures. The craniocervical junction and visualized po rtions of the posterior fossa appear grossly stable. There is moderate disc height loss at multiplelevels. Multilevel disc degenerative changes unchanged compared to prior study.. No significant central canal stenosis through the levels of C2-C3, C3-C4, C4-C5, similar to prior study. No significant interval change in the multilevel right-sided moderate neural foraminal stenosis through the levelof C4-C5 to C6-C7. There is soft tissue extension of tumor through the levels of C4-C5, C5-C6 and C6-C7 neural foramina on the left side, similar to prior study. IMPRESSION: 1.Redemonstration of postoperative findings of C3-C7 [...] Pearl Jean-Baptiste MD on 10/01/2023 5:54 PM PATHOLOGY: Please see oncologic history above. ASSESSMENT: Brisa Hogan is a 63 year old female with recurrent metastatic papillary cancer, see oncology history below who has presented to clinic to discuss treatment options for metastatic papillary cancer. Recurrent metastatic papillary cancer, with metastatic spread to the cervical spine, and recurrenceat the thyroid bed. We discussed in detail the diagnosis, natural progression of recurrent metastatic papillary thyroidcancer without and without treatment, the palliative intent of systemic therapy, and the role of TKIs (Lenvatinib, and Sorafenib) in improving PFS. She does not have any medical conditions which would preclude her from receiving TKIs. We also discussed the side effects from lenvatnib including lifethreatening emergencies in detail. Lenvatinib as as compared with placebo, was associated with significant improvements in progression-free survival and the response rate among patients with [id number] thyroid cancer (SELECT trial). The median progression-free survival was 18.3 months inthe lenvatinib group and 3.6 months in the placebo group. The response rate was 64.8% in the lenvatinib group (4 complete responses and 165 partial responses) and 1.5% in the placebo group (P<0.001). The median overall survival was not reached in either group. She is eager to start treatment with lenvatinib: for drug monitoring we would need: LFTs (at baseline, every 2 weeks for 2 months, and at least monthly thereafter); renal function; electrolytes (baseline and periodically); serum calcium at least monthly; thyroid function (TSH levels) at baseline and monthly or as clinically indicated; monitor for proteinuria at baseline and periodically during treatment (urine dipstick; if 2+ then obtain a 24-hour urine protein). Monitor BP after 1 week, then every 2 weeks for 2 months, and at least monthly thereafter. Dental exam prior to andperiodically during treatment, and an EKG prior to starting. It is not clear if her disease is iodine refractory. We would like her to to see endocrinology again. She would also benefit from bone directed therapy. We will also send for Tempus testing to look for molecular targets. Neoplasm related pain: Current opoid regimen working well, hoping palliative RT will improve symptoms too. PLAN: Obtain CBC, CMP, EKG, UA, TSH prior to starting therapy Dental clearance for therapy and bone directed treatments Will get in touch her roller stitcher Blood pressure monitoring at home for the first two weeks RTC in two weeks Plan discussed with Dr. Sujit Robles Hem Onc fellow DOI: [id number] Associated attestation - Remi Beckett MD - 10/26/2023 3:31 PM CDT Attending Physician Supervisory Note I personally interviewed and examined the patient with the hide house supervisor. I confirm the findings and agree with the assessment and plan. Please see below for additions/corrections: DIAGNOSIS: Papillary carcinoma of thyroid, stage III [...] C/T spine, 3,000 cGy in 5 fractions. ASSESSMENT: Ms. Hogan is a very pleasant 63-year-old female who was diagnosed with stage III papillary carcinoma of thyroid in 08/2020 when she underwent total thyroidectomy and lymph node dissection. She subsequently received WARD in 03/2021, and followed with surveillance TFTs and imaging which was concerningfor residual disease. She underwent resection of right central neck mass in 02/2022. In 08/2022, imaging was concerning for distant recurrence in the spine and she received SBRT to C-spine in 09/2022, followed by C2-T2 fusion with laminectomy for partial resection of extramedullary tumor from C3-C7 on10/02/2022. More recently, her thyroglobulin has been trending up (385 on 09/09/2023) and imaging withMRI cervical spine and PET/CT has showed concerns for recurrence in the cervical and thoracic vertebrae, possibly with spinal cord involvement. She has received palliative RT to C/T-spine in 10/2023. She presents today to establish care. Comorbidities: Hypertension, hyperlipidemia, GERD, psoriasis?, anxiety/depression. PLAN: It was a pleasure meeting Brisa today. We extensively discussed her past oncologic history and treatments. Given concern for recurrent disease on recent PET/CT, uptrending thyroglobulin and concernsfor FIELD SERVICE MANAGER metastasis, I discussed the role of systemic therapy (such as lenvatinib 24 mg orally once daily) based on the available data (see above), to which she is agreeable and eager. Discussed benefits/risks. I will reach out to her roller stitcher to see if further WARD treatment would be offered,otherwise initiation of TKI seems reasonable for radioiodine refractory thyroid cancer. Discussed that clinical trials are preferred in this situation, however she declined the referral. Will obtain NGS, and also brain MRI to complete staging, however data for the efficacy of lenvatinib or sorafenib for patients with brain metastasis have not been established. She will also be a candidate for BMAgiven bone disease; needs dental clearance. Monitoring for lenvatinib: - LFTs at baseline, every 2 weeks for 2 months, and at least monthly thereafter. - Renal function and electrolytes. - Serum calcium. - Thyroid function (TSH levels) at baseline and monthly or as clinically indicated. - Monitor for proteinuria at baseline and. Periodically during treatment. Blood pressure. - Dental exam. - EKG. - Monitor for symptoms/signs of cardiac dysfunction, arterial thrombosis,, fistula formation, GI perforation, bleeding/hemorrhage, diarrhea, dehydration, wound healing complications. - Hep B screening. RTC in 2 weeks. Remi Beckett MD Dialysis Biomed Technicianmud analysis operator Department of Hematology & Medical Oncology [facility]: documented in this encounter Plan of Treatment Upcoming Encounters Date Type Department Care Team (Late st Contact Info) Description 07/25/2024 10:00 AM TELEVISION AGENT Office Visit [facility] - Endocrinology [address] [place] [phone] Yosi Bustamante MD [address] [place] [address] 2L [place] [address] 07/26/2024 10:00 AM TELEVISION AGENT Appointment [facility] [address] [place] [address] Neri Delgado MD [address] [place] [address] 07/26/2024 10:00 AM TELEVISION AGENT Office Visit [facility] - ENT [address] [place] [phone] Myra Farmer, DIAMOND PICKER [address] [place] [address] 2[address] [place] [address] 07/26/2024 11:15 AM TELEVISION AGENT Office Visit [facility] - ENT [address] [place] [phone] Neri Delgado MD [address] [place] [address] 08/02/2024 2:20 PM TELEVISION AGENT Appointment [facility] [address] [place] [address] 08/02/2024 3:00 PM TELEVISION AGENT Office Visit [facility] - Hematology/Oncology [address] [place] [address] Remi Beckett MD [address] [place] [phone] 08/18/2024 1:45 PM TELEVISION AGENT Office Visit [facility] - ENT [address] [place] [phone] Neri Delgado MD [address] [place] [address] Scheduled Referrals Name Type Priority Associated Diagnoses Order Schedule AMB REFERRAL TO DENTISTRY Outpatient Referral Routine Cancer, metastatic to bone (HCC) 1 Occurrences starting 10/21/2023 until 10/20/2024 documented as of this encounter Procedures Procedure Name Priority Date/Time Associated Diagnosis Comments [facility]PUS BLOOD DRAW Routine 10/21/2023 2:4 9 PM CDT Malignant tumor of thyroid gland (HCC) [facility] XF Routine 10/21/2023 2:37 PM CDT Malignant tumor of thyroid gland (HCC) [facility] XT Routine 10/21/2023 2:37 PM CDT Malignant tumor of thyroid gland (HCC) documented in this encounter Results * MRI BRAIN WWO CONTRAST (11/05/2023 3:45 [...] DATE/TIME OF EXAM: ??11/05/2023 3:45 PM, LOCATION ??[facility] INDICATION: C73: Malignant tumor of thyroid [...] CONTRAST, DATE/TIME OF EXAM: 11/05/2023 3:45PM, LOCATION [facility] INDICATION: C73: Malignant tumor of thyroid [...] Qiu MD on 11/08/2023 2:17 PM Remi Bcekett MD MR ORDERABLES * HEPATITIS B SURFACE ANTIBODY (11/04/2023 11:07 AM CDT) Hepatitis B Virus Surface Antibody Non-react oswaldo Non-react oswaldo 11/04/2023 12:05 PM T [facility] Comment: < 8 mIU/mL Hepatitis B surface Antibody (HBsAb). Nonreactive for HBsAb - individual is considered not immune to Hepatitis B Virus infection. Hepatitis B Surface Antibody Quantitative 0.0 <8.0 mIU/mL 11/04/2023 12:05 PM T [facility] Comment: Hepatitis B Surface Antibody Numeric Result Interpretation: ? Nonreactive: ?<8.0 mIU/mL ? Indeterminate: ??8.0 - 12.0 mIU/mL ? Reactive: ?>12.0 mIU/mL ? Blood BLOOD SPECIMEN / Unknown Lab Venipuncture / Unknown 11/04/2023 11:07 AM CDT 11/04/2023 11:13 AM CDT Remi Beckett MD LAB - CHEMISTRY ORDERABLES Performing Organization Address [facility] Co de Phone Number [address] [address], [facility] [phone] * HEPATITIS B CORE ANTIBODY TOTAL (11/04/2023 11:07 AM CDT) Pathologist [facility] HBc Antibody Total Non-reacti ve Non-reacti ve 11/04/2023 12:05 PM CDT [facility] Blood BLOOD SPECIMEN / Unknown Lab Venipuncture / Unknown 11/04/2023 11:07 AM CDT 11/04/2023 11:13 AM CDT Remi Beckett MD LAB - CHEMISTRY ORDERABLES Performing Organization Address [facility] de Phone Number [address] [address], [facility] [phone] * EKG 12-LEAD (11/01/2023 11:15 AM CDT) Ventricular Rate 81 BPM SL MUSE Atrial Rate 81 BPM [facility] MUSE P-R Interval 118 ms [facility] MUSE QRS Duration ms 86 ms [facility] MUSE Q-T Interval ms 398 ms [facility] MUSE QTC Calculation (Bezet) 462 ms [facility] MUSE Calculated P Ennis 58 degrees [facility] MUSE Calculated R Ennis 35 degrees [facility] MUSE Calculated T Ennis 44 degrees [facility] MUSE Interpretation EKG NORMAL SINUS RHYTHM POSSIBLE LEFT ATRIAL ENLARGEMENT BORDERLINE ECG WHEN COMPARED WITH ECG OF 14-SEP-2022 13:58, NO SIGNIFICANT CHANGE WAS FOUND Confirmed by CLARE ROMERO, JAE ([id number]) on 11/03/2023 8:25:26 PM [facility] MUSE 11/01/2023 11:1 5 AM CDT 11/03/2023 8:25 PM CDT Remi Beckett MD ECG ORDERABLES Performing Organization Address [facility]/State/ZIP Co de Phone Number [facility] MUSE * (ABNORMAL) COMPREHENSIVE METABOLIC PANEL (10/21/2023 2:50 PM [facility]) BUN 14 7 - 26 mg/dL 10/21/2023 3:32 PM [facility] Creatinine 0.80 0.56 - 0.96 mg/dL 10/21/2023 3:32 PM [facility] Sodium 138 136 - 145 mmol/L 10/21/2023 3:32 PM [facility] Potassium 3.6 3.5 - 4.5 mmol/L 10/21/2023 3:32 PM [facility] Chloride 103 98 - 107 mmol/L 10/21/2023 3:32 PM [facility] CO2 22 22 - 29 mmol/L 10/21/2023 3:32 PM [facility] Glucose 122(H) 70 - 115 mg/dL 10/21/2023 3:32 PM [facility] Calcium 8.8 8.4 - 10.2 mg/dL 10/21/2023 3:32 PM [facility] Protein Total 7.4 6.0 - 8.3 g/dL 10/21/2023 3:32 PM [facility] Albumin 3.8 3.4 - 5.0 g/dL 10/21/2023 3:32 PM [facility] Bilirubin Total 0.2 0.2 - 1.2 mg/dL 10/21/2023 3:32 PM [facility] Alkaline Phosphatase 85 40 - 150 U/L 10/21/2023 3:32 PM [facility] ALT 15 5 - 55 U/L 10/21/2023 3:32 PM [facility] AST 16 5 - 34 U/L 10/21/2023 3:32 PM [facility] Anion Gap 13 6 - 16 10/21/2023 3:32 PM [facility] BUN/Creatinine Ratio 18 7 - 23 10/21/2023 3:32 PM [facility] Osmolality Calculated 288 275 - 295 mOsm/kg 10/21/2023 3:32 PM [facility] Albumin/Globulin Ratio 1.1 1.1 - 2.3 10/21/2023 3:32 PM [facility] eGFR by CKD-EPI 82(L) >=90 mL/min/1.7 3 m2 10/21/2023 3:32 PM [facility] Blood BLOOD SPECIMEN / Unknown Lab Venipuncture / Unknown 10/21/2023 2:50 PM CDT 10/21/2023 3:04 PM CDT Remi Beckett MD LAB - CHEMISTRY ORDERABLES [facility] [address] [place] [address], [facility] [phone] * CBC W/ DIFFERENTIAL (10/21/2023 2:50 PM CDT) WBC 7.6 4.0 - 10.7 x10E9/L 10/21/2023 3:09 PM [facility] RBC Count 4.83 3.90 - 5.20 x10E12/L 10/21/2023 3:09 PM [facility] Hemoglobin 13.7 11.9 - 15.8 g/dL 10/21/2023 3:09 PM [facility] Hematocrit 41.1 34.8 - 46.1 % 10/21/2023 3:09 PM [facility] MCV 85.1 80.0 - 98.0 fL 10/21/2023 3:09 PM [facility] MCH 28.4 26.7 - 33.6 pg 10/21/2023 3:09 PM [facility] MCHC 33.3 31.7 - 36.3 g/dL 10/21/2023 3:09 PM [facility] RDW-CV 13.1 11.3 - 14.8 % 10/21/2023 3:09 PM [facility] Platelet Count 290 150 - 420 x10E9/L 10/21/2023 3:09 PM [facility] MPV 9.6 7.8 - 11.4 fL 10/21/2023 3:09 PM [facility] Neutrophil % 68.6 41.0 - 74.0 % 10/21/2023 3:09 PM CDT [facility] Lymphocyte % 19.8 17.0 - 47.0 % 10/21/2023 3:09 PM CDT [facility] Monocyte % 9.3 3.0 - 11.0 % 10/21/2023 3:09 PM CDT [facility] Eosinophil % 1.6 0.0 - 7.0 % 10/21/2023 3:09 PM CDT [facility] Basophil % 0.4 0.0 - 1.6 % 10/21/2023 3:09 PM CDT [facility] Immature Granulocytes % 0.3 0.0 - 1.0 % 10/21/2023 3:09 PM T [facility] Neutrophil Absolute 5.24 1.60 - 7.50 x10E9/L 10/21/2023 3:09 PM CDT [facility] Lymphocyte Absolute 1.51 1.00 - 4.40 x10E9/L 10/21/2023 3:09 PM CDT [facility] Monocyte Absolute 0.71 0.15 - 1.00 x10E9/L 10/21/2023 3:09 PM CDT [facility] Eosinophil Absolute 0.12 0.00 - 0.60 x10E9/L 10/21/2023 3:09 PM T [facility] Basophil Absolute 0.03 0.00 - 0.13 x10E9/L 10/21/2023 3:09 PM T [facility] Blood BLOOD SPECIMEN / Unknown Lab Venipuncture / Unknown 10/21/2023 2:50 PM CDT 10/21/2023 3:04 PM CDT Remi Beckett MD LAB - HEMATOLOGY ORDERABLES [facility] [address] [place] [address], [facility] [phone] * [facility] BLOOD DRAW (10/21/2023 2:49 PM CDT) [facility] Blood Sent to [facility] 10/22/2023 9:00 AM CDT [facility] Comment:Collection and sendo ut completed. Blood BLOOD SPECIMEN / Unknown Lab Venipuncture / Unknown 10/21/2023 2:49 PM CDT 10/22/2023 8:33 AM CDT Remi Beckett MD LAB - HEMATOLOGY ORDERABLES Performing Organization Address City/[facility]/ZIP Co de Phone Number [facility] ([facility]) [address], [address] [place] [address] * [facility] XF (10/21/2023 2:37 PM CDT) Pathology/Cytolo gy MISCELLANEOUS SAMPLES / Unknown 10/21/2023 2:37 PM CDT 10/21/2023 2:37 PM CDT Remi Beckett MD LAB - PATHOLOGY/ CYTOLOGY ORDERABLES Performing Organization Address City/[facility] Co de Phone Number [facility] ([facility]) [address], [address] [place] [address] * [facility] XT (10/21/2023 2:37 PM CDT) Pathology/Cytolo gy MISCELLANEOUS SAMPLES / Unknown 10/21/2023 2:37 PM CDT 10/21/2023 2:37 PM CDT Remi Beckett MD LAB - PATHOLOGY/ CYTOLOGY ORDERABLES Performing Organization Address City/[facility] Co de Phone Number [facility] ([facility]) [address] [place] [address] documented in this encounter Visit Diagnoses Diagnosis Malignant tumor of thyroid gland (HCC)- Primary Malignant neoplasm of thyroid gland Cancer, metastatic to bone (HCC) Secondary malignant neoplasm of bone and bone marrow Encounter for antineoplastic chemotherapy Malignant tumor of thyroid gland (HCC) Malignant neoplasm of thyroid gland documented in this encounter Care Teams Assembler Corncob Pipes Relationship Specialty Start Date End Date Yaya Villatoro MD [facility] [phone] PCP - General Internal Medicine 05/04/23 Joseph Manzanares MD [address] [place] [address] Internal Medicine 04/21/23 documented as of this encounter
--- OUTSIDE RECORDS SUMMARY | 2024-07-23 07:08 | XMS_ITS | Encounter Summary ---
Author Organization [facility] Health Address [address] [place] [address] Care Team Providers Care Fleet Sales Associate Name Role Phone Joseph Manzanares MD Unavailable Yaya Villatoro MD Primary Care Provider [phone] Encounter Details Date Type Department Care Team (Latest Contact Info) Description 10/22/2023 10:57 AM CDT - 10/22/2023 11:59 PM CDT Hospital Encounter [facility] [place], [place] [phone] Marcio Mcintosh MD [address] [place], [place] [phone] Discharge Disposition: Home or Self Care Social [...] Date Recorded PHQ2 TOTAL SCORE 1 11/25/2022 [facility] [place] of Occupat ional Health - Occupational Stress [...] naloxone HCl (Narcan) 4 MG/0.1ML nasal spray [place] 1 (one) spray into the nose as [...] dose 1 mL 06/14/2023 10/25/2023 HYDROcodone-acetamino phen (Maple) 5-325 MG tabletIndications:Cer vical spine tumor,Cancer, metastatic [...] st Contact Info) Description 07/25/2024 10:00 AM IT OPERATIONS MANAGER Office Visit [facility] - Endocrinology [address] [facility] [place] [address] Yosi Bustamante MD [address] [place] [address] [place] [address] 07/26/2024 10:00 AM IT OPERATIONS MANAGER Appointment [facility] [address] [place] [address] Neri Delgado MD [address] [place] [address] 07/26/2024 10:00 AM IT OPERATIONS MANAGER Office Visit [facility] - ENT [address] [place] [phone] Myra Farmer, DIRECTOR SECURITY MANAGEMENT [address] [place] [address] [place] [phone] 07/26/2024 11:15 AM IT OPERATIONS MANAGER Office Visit [facility] - ENT [address] [place] [phone] Neri Delgado MD [address] [place] [address] 08/02/2024 2:20 PM IT OPERATIONS MANAGER Appointment [facility] [address] [place] [address] 08/02/2024 3:00 PM IT OPERATIONS MANAGER Office Visit [facility] - Hematology/Oncology [address] [place] [phone] Remi Beckett MD [address] [place] [phone] 08/18/2024 1:45 PM IT OPERATIONS MANAGER Office Visit [facility] - ENT [address] [place] [phone] Neri Delgado MD [address] [place] [address] documented as of this encounter Visit Diagnoses Not on filedocumented in this encounter Care Teams Fleet Sales Associate Relationship Specialty Start Date End Date Yaya Villatoro MD [address] [place] [phone] PCP - General Internal Medicine 05/04/23 Joseph Manzanares MD [address] [place] [phone] Internal Medicine 04/21/23 documented as of this encounter
--- OUTSIDE RECORDS SUMMARY | 2024-07-23 07:08 | XMS_ITS | Encounter Summary ---
Author Organization [facility] Health Address [address] [facility] [place] [address] Care Team Providers Care Academic Intern Name Role Phone Joseph Manzanares MD Unavailable Yaya Villatoro MD Primary Care Provider [phone]- [phone] Encounter Details Date Type Department Care Team (Latest Contact Info) Description 11/04/2023 11:06 AM CDT - 11/04/2023 12:14 PM [facility] Hospital Encounter [facility] [address]nd [place] [address] Yaya Villatoro MD [address] [facility] [address] [place] [address] Discharge Disposition: Home or Self [...] Date Recorded PHQ2 TOTAL SCORE 1 11/25/2022 [facility] [place] of Occupat ional Health - Occupational Stress [...] place to sleep or slept in a half-way (including now)? No 10/02/2022 Sex and Gender [...] (two) tablets by mouth as needed 07/15/2023 levothyroxine (Synthroid) 112 MCG tabletIndications:Hypoth yroidism,Malignant Neoplasm of Thyroid Take 1 (one) tablet by mouth daily before breakfast Reasons: Cancer of Thyroid, Underactive Thyroid 100 tablet 3 10/25/2023 5 naloxone HCl (Narcan) 4 MG/0.1ML nasal spray [place] 1 (one) spray into the nose as [...] 10/25/2023 4 documented as of this encounter Plan of Treatment Upcoming Encounters Date Type Department Care Team (Late st Contact Info) Description 07/25/2024 10:00 AM BULL LADLE TENDER Office Visit [facility] - Endocrinology [address] [place] [phone] Yosi Bustamante MD [address] [place] [address] [place] [address] 07/26/2024 10:00 AM BULL LADLE TENDER Appointment [facility] [address] [place] [phone] Neri Delgado MD [address] [place] [address] 07/26/2024 10:00 AM BULL LADLE TENDER Office Visit [facility] - ENT [address] [place] [phone] Myra Farmer, CASTER OPERATOR [address] [place] [address] [place] [phone] 07/26/2024 11:15 AM BULL LADLE TENDER Office Visit [facility] - ENT [address] [place] [phone] Neri Delgado MD [address] [place] [address] 08/02/2024 2:20 PM BULL LADLE TENDER Appointment [facility] [address] [place] [address] 08/02/2024 3:00 PM BULL LADLE TENDER Office Visit [facility] - Hematology/Oncology [address] [place] [phone] Remi Beckett MD [address] [place] [phone] 08/18/2024 1:45 PM BULL LADLE TENDER Office Visit [facility] - ENT [address] [place] [phone] Neri Delgado MD [address] [place] [address] documented as of this encounter Procedures Procedure Name Priority Date/Time Associated Diagnosis Comments HEPATITIS B SURFACE ANTIBODY STAT 11/04/2023 11:07 AM CDT Encounter for antineoplastic chemotherapy HEPATITIS B CORE ANTIBODY TOTAL STAT 11/04/2023 11:07 AM CDT Encounter for antineoplastic chemotherapy HEPATITIS B SURFACE ANTIGEN W RFLX CONFIRMATION Routine 11/04/2023 11:07 AM CDT Encounter for antineoplastic chemotherapy documented in this encounter Results * HEPATITIS B SURFACE ANTIGEN W RFLX CONFIRMATION (11/04/2023 11:07 AM CDT) Hepatitis B Virus Surface Antigen Non-reacti ve Non-reacti ve 11/04/2023 12:[address] [facility] Blood BLOOD SPECIMEN / Unknown Lab Venipuncture / Unknown 11/04/2023 11:07 AM CDT 11/04/2023 11:13 AM CDT Remi Beckett MD LAB - CHEMISTRY ORDERABLES Performing Organization Address [facility] Co de Phone Number [address] [address], [facility] [phone] * HEPATITIS B SURFACE ANTIBODY (11/04/2023 11:07 AM CDT) Hepatitis B Virus Surface Antibody Non-react oswaldo Non-react oswaldo 11/04/2023 12:[address] [facility] Comment: < 8 mIU/mL Hepatitis B surface Antibody (HBsAb). Nonreactive for HBsAb - individual is considered not immune to Hepatitis B Virus infection. Hepatitis B Surface Antibody Quantitative 0.0 <8.0 mIU/mL 11/04/2023 12:[address] [facility] Comment: Hepatitis B Surface Antibody Numeric Result Interpretation: ? Nonreactive: ?<8.0 mIU/mL ? Indeterminate: ??8.0 - 12.0 mIU/mL ? Reactive: ?>12.0 mIU/mL ? Blood BLOOD SPECIMEN / Unknown Lab Venipuncture / Unknown 11/04/2023 11:07 AM CDT 11/04/2023 11:13 AM CDT Remi Beckett MD LAB - CHEMISTRY ORDERABLES Performing Organization Address [facility] Co de Phone Number [address] [address], [place] [phone] * HEPATITIS B CORE ANTIBODY TOTAL (11/04/2023 11:07 AM CDT) HBc Antibody Total Non-reacti ve Non-reacti ve 11/04/2023 12:[address] [facility] Blood BLOOD SPECIMEN / Unknown Lab Venipuncture / Unknown 11/04/2023 11:07 AM CDT 11/04/2023 11:13 AM CDT Remi Beckett MD LAB - CHEMISTRY ORDERABLES [address] [address], [facility] [phone] documented in this encounter Visit Diagnoses Diagnosis Encounter for antineoplastic chemotherapy- Primary documented in this encounter Care Teams Academic Intern Relationship Specialty Start Date End Date Yaya Villatoro MD [address] [phone] PCP - General Internal Medicine 05/04/23 Joseph Manzanares MD [address] [place] [phone] Internal Medicine 04/21/23 documented as of this encounter
--- OUTSIDE RECORDS SUMMARY | 2024-07-23 07:08 | XMS_ITS | Encounter Summary ---
Author Organization [facility] Address [address] [place] [address] Care Team Providers Care Basketball Assembler Name Role Phone Joseph Manzanares MD Unavailable Yaya Villatoro MD Primary Care Provider [phone] Encounter Details Date Type Department Care Team (Latest Contact Info) Description 10/25/2023 Travel Social History Tobacco Use Types Packs/Day [...] Date Recorded PHQ2 TOTAL SCORE 1 11/25/2022 [facility] - Occupational [...] st Contact Info) Description 07/25/2024 10:00 AM COMPONENT ASSEMBLER SUPERVISOR Office Visit [facility] - Endocrinology [address] [place] [phone] Yosi Bustamante MD [address] [place] [address] 2L [place] [address] 07/26/2024 10:00 AM COMPONENT ASSEMBLER SUPERVISOR Appointment [facility] [address] [place] [phone] Neri Delgado MD [address] [place] [address] 07/26/2024 10:00 AM COMPONENT ASSEMBLER SUPERVISOR Office Visit [facility] - ENT [address] [place] [phone] Myra Farmer, HOME SERVICE TECHNICIAN [address] [place] [address] 2L [place] [phone] 07/26/2024 11:15 AM COMPONENT ASSEMBLER SUPERVISOR Office Visit [facility] ENT [address] [place] [phone] Neri Delgado MD [address] [place] [address] 08/02/2024 2:20 PM COMPONENT ASSEMBLER SUPERVISOR Appointment [facility] [address] [place] [phone] 08/02/2024 3:00 PM COMPONENT ASSEMBLER SUPERVISOR Office Visit [facility] - Hematology/Oncology [address] [place] [phone] Remi Beckett MD [address] [place] [phone] 08/18/2024 1:45 PM COMPONENT ASSEMBLER SUPERVISOR Office Visit [facility] - ENT [address] [place] [phone] Neri Delgado MD [address] [place] [phone] documented as of this encounter Visit Diagnoses Not on filedocumented in this encounter Care Teams Basketball Assembler Relationship Specialty Start Date End Date Yaya Villatoro MD [address] [phone] PCP - General Internal Medicine 05/04/23 Joseph Manzanares MD [address] [place] [phone] Internal Medicine 04/21/23 documented as of this encounter
--- OUTSIDE RECORDS SUMMARY | 2024-07-23 07:08 | XMS_ITS | Encounter Summary ---
Author Organization [facility] Address [address] [facility] [place] [address] Care Team Providers Care Restaurant Culinary Manager Name Role Phone Joseph Manzanares MD Unavailable Yaya Villatoro MD Primary Care Provider [phone] Encounter Details Date Type Department Care Team (Late st Contact Info) Description 12/10/2023 Orders Only [facility] - Hematology/Oncology [address] [place] [address] Remi Beckett MD [address] [place] [address] Papillary carcinoma of thyroid (HCC) [...] Date Recorded PHQ2 TOTAL SCORE 1 11/25/2022 [facility] - [...] st Contact Info) Description 07/25/2024 10:00 AM BULLET LUBRICANT MIXER Office Visit [facility] - Endocrinology [address] [place] [phone] Yosi Bustamante MD [address] [place] [address] [address] [place] [address] 07/26/2024 10:00 AM BULLET LUBRICANT MIXER Appointment [facility] [address] [place] [address] Neri Delgado MD [address] [place] [address] 07/26/2024 10:00 AM BULLET LUBRICANT MIXER Office Visit [facility] - ENT [address] [place] [phone] Myra Farmer, CONTENT MANAGER [address] [place] [address] [address] [place] [address] 07/26/2024 11:15 AM BULLET [employer]IC[employer] MIXER Office Visit [facility] - ENT [address] [place] [phone] Neri Delgado MD [address] [place] [phone] 08/02/2024 2:20 PM BULLET LUBRICANT MIXER Appointment [facility] [address] [place] [address] 08/02/2024 3:00 PM B[employer]LET [employer] MIXER Office Visit [facility] - Hematology/Oncology [address] [place] [address] Remi Beckett MD [address] [place] [address] 08/18/2024 1:45 PM BULLET [employer]IC[employer] MIXER Office Visit [facility] - ENT [address] [place] [phone] Neri Delgado MD [address] [place] [phone] Scheduled Orders Name Type Priority Associated Diagnoses Orde r Schedule CBC WITH DIFFERENTIAL Lab STAT Papillary carcinoma of thyroid (HCC) E-4Weeks for 8 Occurrences starting 12/10/2023 until 12/18/2025, 5 completed COMPREHENSIVE METABOLIC PANEL Lab STAT Papillary carcinoma of thyroid (HCC) E-4Weeks for 8 Occurrences starting 12/10/2023 until 12/18/2025, 5 completed documented as of this encounter Results * (ABNORMAL) COMPREHENSIVE METABOLIC PANEL (06/15/2024 2:41 PM B[employer]IXER) BUN 28(H) 7 - 26 mg/dL 06/15/2024 3:20 PM [facility] Creatinine 0.86 0.56 - 0.96 mg/dL 06/15/2024 3:20 PM [facility] Sodium 138 136 - 145 mmol/L 06/15/2024 3:20 PM [facility] Potassium 4.1 3.5 - 4.5 mmol/L 06/15/2024 3:20 PM [facility] Chloride 103 98 - 107 mmol/L 06/15/2024 3:20 PM [facility] CO2 22 22 - 29 mmol/L 06/15/2024 3:20 PM [facility] Glucose 104(H) 70 - 99 mg/dL 06/15/2024 3:20 PM [facility] Calcium 10.2 8.4 - 10.2 mg/dL 06/15/2024 3:20 PM B[employer] [facility] Protein Total 8.1 6.0 - 8.3 g/dL 06/15/2024 3:20 PM [facility] Albumin 4.0 3.4 - 5.0 g/dL 06/15/2024 3:20 PM [facility] Bilirubin Total 0.3 0.2 - 1.2 mg/dL 06/15/2024 3:20 PM [facility] Alkaline Phosphatase 78 40 - 150 U/L 06/15/2024 3:20 PM [facility] ALT 13 5 - 55 U/L 06/15/2024 3:20 PM [facility] AST 16 5 - 34 U/L 06/15/2024 3:20 PM [facility] Anion Gap 13 6 - 16 06/15/2024 3:20 PM [facility] BUN/Creatinine Ratio 33(H) 7 - 23 06/15/2024 3:20 PM [facility] Osmolality Calculated 292 275 - 295 mOsm/kg 06/15/2024 3:20 PM [facility] Albumin/Globulin Ratio 1.0(L) 1.1 - 2.3 06/15/2024 3:20 PM [facility] eGFR by CKD-EPI 75(L) >=90 mL/min/1.7 3 m2 06/15/2024 3:20 PM [facility] Blood BLOOD SPECIMEN / Unknown Lab Venipuncture / Unknown 06/15/2024 2:41 PM [employer] 06/15/2024 2:47 PM [facility] Remi Beckett MD LAB - CHEMISTRY ORDERABLES Performing Organization Address City/State/[facility] Co de Phone Number [facility] [address] [place] [address] [phone] * (ABNORMAL) CBC WITH DIFFERENTIAL (06/15/2024 2:41 PM B[employer]) WBC 9.8 4.0 - 10.7 x10E9/L 06/15/2024 2:55 PM [facility] RBC Count 5.23(H) 3.90 - 5.20 x10E12/L 06/15/2024 2:55 PM [facility] Hemoglobin 16.0(H) 11.9 - 15.8 g/dL 06/15/2024 2:55 PM [facility] Hematocrit 45.9 34.8 - 46.1 % 06/15/2024 2:55 PM [facility] MCV 87.8 80.0 - 98.0 fL 06/15/2024 2:55 PM [facility] MCH 30.6 26.7 - 33.6 pg 06/15/2024 2:55 PM [facility] MCHC 34.9 31.7 - 36.3 g/dL 06/15/2024 2:55 PM [facility] RDW-CV 13.5 11.3 - 14.8 % 06/15/2024 2:55 PM [facility] Platelet Count 285 150 - 420 x10E9/L 06/15/2024 2:55 PM [facility] MPV 9.5 7.8 - 11.4 fL 06/15/2024 2:55 PM [facility] Neutrophil % 68.5 41.0 - 74.0 % 06/15/2024 2:55 PM [facility] Lymphocyte % 20.6 17.0 - 47.0 % 06/15/2024 2:55 PM [facility] Monocyte % 9.0 3.0 - 11.0 % 06/15/2024 2:55 PM [facility] Eosinophil % 1.2 0.0 - 7.0 % 06/15/2024 2:55 PM [facility] Basophil % 0.5 0.0 - 1.6 % 06/15/2024 2:55 PM [facility] Immature Granulocytes % 0.2 0.0 - 1.0 % 06/15/2024 2:55 PM [facility] Neutrophil Absolute 6.69 1.60 - 7.50 x10E9/L 06/15/2024 2:55 PM [facility] Lymphocyte Absolute 2.01 1.00 - 4.40 x10E9/L 06/15/2024 2:55 PM [facility] Monocyte Absolute 0.88 0.15 - 1.00 x10E9/L 06/15/2024 2:55 PM [facility] Eosinophil Absolute 0.12 0.00 - 0.60 x10E9/L 06/15/2024 2:55 PM B[employer]LET [employer]IC[employer] MIXER [facility] Basophil Absolute 0.05 0.00 - 0.13 x10E9/L 06/15/2024 2:55 PM B[employer] MIXER [facility] Blood BLOOD SPECIMEN / Unknown Lab Venipuncture / Unknown 06/15/2024 2:41 PM B[employer]IC[employer] MIXER 06/15/2024 2:47 PM BULLET [employer]IC[employer] MIXER Remi Beckett MD LAB - HEMATOLOGY ORDERABLES [facility] [address] [place] [address], [facility] [phone] * (ABNORMAL) COMPREHENSIVE METABOLIC PANEL (03/20/2024 2:41 PM CDT) BUN 19 7 - 26 mg/dL 03/20/2024 3:19 PM [facility] Creatinine 0.69 0.56 - 0.96 mg/dL 03/20/2024 3:19 PM [facility] Sodium 139 136 - 145 mmol/L 03/20/2024 3:19 PM [facility] Potassium 4.1 3.5 - 4.5 mmol/L 03/20/2024 3:19 PM [facility] Chloride 108(H) 98 - 107 mmol/L 03/20/2024 3:19 PM [facility] CO2 24 22 - 29 mmol/L 03/20/2024 3:19 PM [facility] Glucose 104 70 - 115 mg/dL 03/20/2024 3:19 PM [facility] Calcium 9.5 8.4 - 10.2 mg/dL 03/20/2024 3:19 PM [facility] Protein Total 7.7 6.0 - 8.3 g/dL 03/20/2024 3:19 PM [facility] Albumin 4.0 3.4 - 5.0 g/dL 03/20/2024 3:19 PM [facility] Bilirubin Total 0.2 0.2 - 1.2 mg/dL 03/20/2024 3:19 PM [facility] Alkaline Phosphatase 83 40 - 150 U/L 03/20/2024 3:19 PM [facility] ALT 11 5 - 55 U/L 03/20/2024 3:19 PM [facility] AST 17 5 - 34 U/L 03/20/2024 3:19 PM [facility] Anion Gap 7 6 - 16 03/20/2024 3:19 PM [facility] BUN/Creatinine Ratio 28(H) 7 - 23 03/20/2024 3:19 PM [facility] Osmolality Calculated 291 275 - 295 mOsm/kg 03/20/2024 3:19 PM [facility] Albumin/Globulin Ratio 1.1 1.1 - 2.3 03/20/2024 3:19 PM [facility] eGFR by CKD-EPI >90 >=90 mL/min/1.7 3 m2 03/20/2024 3:19 PM [facility] Blood BLOOD SPECIMEN / Unknown Lab Venipuncture / Unknown 03/20/2024 2:41 PM CDT 03/20/2024 2:50 PM CDT Remi Beckett MD LAB - CHEMISTRY ORDERABLES Performing Organization Address City/State/[facility] Co de Phone Number [facility] [address] [place] [address], [facility] [phone] * CBC WITH DIFFERENTIAL (03/20/2024 2:41 PM CDT) WBC 7.8 4.0 - 10.7 x10E9/L 03/20/2024 2:59 PM [facility] RBC Count 4.93 3.90 - 5.20 x10E12/L 03/20/2024 2:59 PM [facility] Hemoglobin 14.6 11.9 - 15.8 g/dL 03/20/2024 2:59 PM [facility] Hematocrit 41.8 34.8 - 46.1 % 03/20/2024 2:59 PM [facility] MCV 84.8 80.0 - 98.0 fL 03/20/2024 2:59 PM [facility] MCH 29.6 26.7 - 33.6 pg 03/20/2024 2:59 PM [facility] MCHC 34.9 31.7 - 36.3 g/dL 03/20/2024 2:59 PM [facility] RDW-CV 13.9 11.3 - 14.8 % 03/20/2024 2:59 PM [facility] Platelet Count 297 150 - 420 x10E9/L 03/20/2024 2:59 PM [facility] MPV 9.3 7.8 - 11.4 fL 03/20/2024 2:59 PM [facility] Neutrophil % 67.8 41.0 - 74.0 % 03/20/2024 2:59 PM [facility] Lymphocyte % 20.7 17.0 - 47.0 % 03/20/2024 2:59 PM [facility] Monocyte % 9.1 3.0 - 11.0 % 03/20/2024 2:59 PM [facility] Eosinophil % 1.5 0.0 - 7.0 % 03/20/2024 2:59 PM [facility] Basophil % 0.6 0.0 - 1.6 % 03/20/2024 2:59 PM [facility] Immature Granulocytes % 0.3 0.0 - 1.0 % 03/20/2024 2:59 PM [facility] Neutrophil Absolute 5.31 1.60 - 7.50 x10E9/L 03/20/2024 2:59 PM [facility] Lymphocyte Absolute 1.62 1.00 - 4.40 x10E9/L 03/20/2024 2:59 PM [facility] Monocyte Absolute 0.71 0.15 - 1.00 x10E9/L 03/20/2024 2:59 PM [facility] Eosinophil Absolute 0.12 0.00 - 0.60 x10E9/L 03/20/2024 2:59 PM [facility] Basophil Absolute 0.05 0.00 - 0.13 x10E9/L 03/20/2024 2:59 PM [facility] Blood BLOOD SPECIMEN / Unknown Lab Venipuncture / Unknown 03/20/2024 2:41 PM CDT 03/20/2024 2:50 PM CDT Remi Beckett MD LAB - HEMATOLOGY ORDERABLES [facility] [address] [place] [address], [facility] [phone] * (ABNORMAL) COMPREHENSIVE METABOLIC PANEL (03/07/2024 12:53 PM CDT) BUN 28(H) 7 - 26 mg/dL 03/07/2024 1:32 PM [facility] Creatinine 0.78 0.56 - 0.96 mg/dL 03/07/2024 1:32 PM [facility] Sodium 134(L) 136 - 145 mmol/L 03/07/2024 1:32 PM [facility] Potassium 4.0 3.5 - 4.5 mmol/L 03/07/2024 1:32 PM [facility] Chloride 99 98 - 107 mmol/L 03/07/2024 1:32 PM [facility] CO2 24 22 - 29 mmol/L 03/07/2024 1:32 PM [facility] Glucose 91 70 - 115 mg/dL 03/07/2024 1:32 PM [facility] Calcium 9.4 8.4 - 10.2 mg/dL 03/07/2024 1:32 PM [facility] Protein Total 7.6 6.0 - 8.3 g/dL 03/07/2024 1:32 PM [facility] Albumin 3.8 3.4 - 5.0 g/dL 03/07/2024 1:32 PM [facility] Bilirubin Total 0.3 0.2 - 1.2 mg/dL 03/07/2024 1:32 PM [facility] Alkaline Phosphatase 85 40 - 150 U/L 03/07/2024 1:32 PM [facility] ALT 12 5 - 55 U/L 03/07/2024 1:32 PM [facility] AST 14 5 - 34 U/L 03/07/2024 1:32 PM [facility] Anion Gap 11 6 - 16 03/07/2024 1:32 PM [facility] BUN/Creatinine Ratio 36(H) 7 - 23 03/07/2024 1:32 PM [facility] Osmolality Calculated 283 275 - 295 mOsm/kg 03/07/2024 1:32 PM [facility] Albumin/Globulin Ratio 1.0(L) 1.1 - 2.3 03/07/2024 1:32 PM [facility] eGFR by CKD-EPI 84(L) >=90 mL/min/1.7 3 m2 03/07/2024 1:32 PM [facility] Blood BLOOD SPECIMEN / Unknown Lab Venipuncture / Unknown 03/07/2024 12:53 PM CDT 03/07/2024 1:04 PM CDT Remi Beckett MD LAB - CHEMISTRY ORDERABLES [facility] [address] [place] [address] [phone] * (ABNORMAL) CBC WITH DIFFERENTIAL (03/07/2024 12:53 PM CDT) WBC 8.9 4.0 - 10.7 x10E9/L 03/07/2024 1:07 PM [facility] RBC Count 5.21(H) 3.90 - 5.20 x10E12/L 03/07/2024 1:07 PM [facility] Hemoglobin 15.0 11.9 - 15.8 g/dL 03/07/2024 1:07 PM [facility] Hematocrit 44.5 34.8 - 46.1 % 03/07/2024 1:07 PM [facility] MCV 85.4 80.0 - 98.0 fL 03/07/2024 1:07 PM [facility] MCH 28.8 26.7 - 33.6 pg 03/07/2024 1:07 PM [facility] MCHC 33.7 31.7 - 36.3 g/dL 03/07/2024 1:07 PM [facility] RDW-CV 13.8 11.3 - 14.8 % 03/07/2024 1:07 PM [facility] Platelet Count 265 150 - 420 x10E9/L 03/07/2024 1:07 PM [facility] MPV 9.6 7.8 - 11.4 fL 03/07/2024 1:07 PM [facility] Neutrophil % 74.6(H) 41.0 - 74.0 % 03/07/2024 1:07 PM [facility] Lymphocyte % 16.8(L) 17.0 - 47.0 % 03/07/2024 1:07 PM [facility] Monocyte % 7.1 3.0 - 11.0 % 03/07/2024 1:07 PM [facility] Eosinophil % 1.0 0.0 - 7.0 % 03/07/2024 1:07 PM [facility] Basophil % 0.3 0.0 - 1.6 % 03/07/2024 1:07 PM [facility] Immature Granulocytes % 0.2 0.0 - 1.0 % 03/07/2024 1:07 PM [facility] Neutrophil Absolute 6.59 1.60 - 7.50 x10E9/L 03/07/2024 1:07 PM [facility] Lymphocyte Absolute 1.49 1.00 - 4.40 x10E9/L 03/07/2024 1:07 PM [facility] Monocyte Absolute 0.63 0.15 - 1.00 x10E9/L 03/07/2024 1:07 PM [facility] Eosinophil Absolute 0.09 0.00 - 0.60 x10E9/L 03/07/2024 1:07 PM [facility] Basophil Absolute 0.03 0.00 - 0.13 x10E9/L 03/07/2024 1:07 PM [facility] Blood BLOOD SPECIMEN / Unknown Lab Venipuncture / Unknown 03/07/2024 12:53 PM CDT 03/07/2024 1:03 PM CDT Remi Beckett MD LAB - HEMATOLOGY ORDERABLES [facility] [address] [place] [address], [facility] [phone] * (ABNORMAL) COMPREHENSIVE METABOLIC PANEL (02/07/2024 3:06 PM CDT) BUN 27(H) 7 - 26 mg/dL 02/07/2024 3:59 PM [facility] Creatinine 0.68 0.56 - 0.96 mg/dL 02/07/2024 3:59 PM [facility] Sodium 134(L) 136 - 145 mmol/L 02/07/2024 3:59 PM [facility] Potassium 4.2 3.5 - 4.5 mmol/L 02/07/2024 3:59 PM [facility] Chloride 102 98 - 107 mmol/L 02/07/2024 3:59 PM [facility] CO2 23 22 - 29 mmol/L 02/07/2024 3:59 PM [facility] Glucose 93 70 - 115 mg/dL 02/07/2024 3:59 PM [facility] Calcium 8.5 8.4 - 10.2 mg/dL 02/07/2024 3:59 PM [facility] Protein Total 7.2 6.0 - 8.3 g/dL 02/07/2024 3:59 PM [facility] Albumin 3.6 3.4 - 5.0 g/dL 02/07/2024 3:59 PM [facility] Bilirubin Total 0.3 0.2 - 1.2 mg/dL 02/07/2024 3:59 PM [facility] Alkaline Phosphatase 94 40 - 150 U/L 02/07/2024 3:59 PM [facility] ALT 17 5 - 55 U/L 02/07/2024 3:59 PM [facility] AST 18 5 - 34 U/L 02/07/2024 3:59 PM [facility] Anion Gap 9 6 - 16 02/07/2024 3:59 PM [facility] BUN/Creatinine Ratio 40(H) 7 - 23 02/07/2024 3:59 PM [facility] Osmolality Calculated 283 275 - 295 mOsm/kg 02/07/2024 3:59 PM [facility] Albumin/Globulin Ratio 1.0(L) 1.1 - 2.3 02/07/2024 3:59 PM [facility] eGFR by CKD-EPI >90 >=90 mL/min/1.7 3 m2 02/07/2024 3:59 PM [facility] Blood BLOOD SPECIMEN / Unknown Lab Venipuncture / Unknown 02/07/2024 3:06 PM CDT 02/07/2024 3:28 PM T Remi Beckett MD LAB - CHEMISTRY ORDERABLES [facility] [address] [place] [address], [facility] [phone] * CBC WITH DIFFERENTIAL (02/07/2024 3:06 PM CDT) WBC 8.7 4.0 - 10.7 x10E9/L 02/07/2024 3:33 PM [facility] RBC Count 5.00 3.90 - 5.20 x10E12/L 02/07/2024 3:33 PM [facility] Hemoglobin 14.3 11.9 - 15.8 g/dL 02/07/2024 3:33 PM [facility] Hematocrit 42.5 34.8 - 46.1 % 02/07/2024 3:33 PM [facility] MCV 85.0 80.0 - 98.0 fL 02/07/2024 3:33 PM [facility] MCH 28.6 26.7 - 33.6 pg 02/07/2024 3:33 PM [facility] MCHC 33.6 31.7 - 36.3 g/dL 02/07/2024 3:33 PM [facility] RDW-CV 13.8 11.3 - 14.8 % 02/07/2024 3:33 PM [facility] Platelet Count 313 150 - 420 x10E9/L 02/07/2024 3:33 PM [facility] MPV 9.4 7.8 - 11.4 fL 02/07/2024 3:33 PM [facility] Neutrophil % 69.0 41.0 - 74.0 % 02/07/2024 3:33 PM [facility] Lymphocyte % 20.4 17.0 - 47.0 % 02/07/2024 3:33 PM [facility] Monocyte % 7.7 3.0 - 11.0 % 02/07/2024 3:33 PM [facility] Eosinophil % 2.0 0.0 - 7.0 % 02/07/2024 3:33 PM [facility] Basophil % 0.7 0.0 - 1.6 % 02/07/2024 3:33 PM [facility] Immature Granulocytes % 0.2 0.0 - 1.0 % 02/07/2024 3:33 PM [facility] Neutrophil Absolute 5.98 1.60 - 7.50 x10E9/L 02/07/2024 3:33 PM [facility] Lymphocyte Absolute 1.77 1.00 - 4.40 x10E9/L 02/07/2024 3:33 PM [facility] Monocyte Absolute 0.67 0.15 - 1.00 x10E9/L 02/07/2024 3:33 PM [facility] Eosinophil Absolute 0.17 0.00 - 0.60 x10E9/L 02/07/2024 3:33 PM [facility] Basophil Absolute 0.06 0.00 - 0.13 x10E9/L 02/07/2024 3:33 PM [facility] Blood BLOOD SPECIMEN / Unknown Lab Venipuncture / Unknown 02/07/2024 3:06 PM CDT 02/07/2024 3:28 PM T Remi Beckett MD LAB - HEMATOLOGY ORDERABLES Performing Organization Address City/State/[facility] Co de Phone Number [facility] [address] [place] [address] [phone] * (ABNORMAL) COMPREHENSIVE METABOLIC PANEL (01/14/2024 11:13 AM [facility]) BUN 38(H) 7 - 26 mg/dL 01/14/2024 11:44 AM [facility] Creatinine 0.94 0.56 - 0.96 mg/dL 01/14/2024 11:44 AM [facility] Sodium 137 136 - 145 mmol/L 01/14/2024 11:44 AM [facility] Potassium 4.0 3.5 - 4.5 mmol/L 01/14/2024 11:44 AM [facility] Chloride 105 98 - 107 mmol/L 01/14/2024 11:44 AM [facility] CO2 21(L) 22 - 29 mmol/L 01/14/2024 11:44 AM [facility] Glucose 101 70 - 115 mg/dL 01/14/2024 11:44 AM [facility] Calcium 9.0 8.4 - 10.2 mg/dL 01/14/2024 11:44 AM [facility] Protein Total 7.6 6.0 - 8.3 g/dL 01/14/2024 11:44 AM [facility] Albumin 3.6 3.4 - 5.0 g/dL 01/14/2024 11:44 AM [facility] Bilirubin Total 0.3 0.2 - 1.2 mg/dL 01/14/2024 11:44 AM [facility] Alkaline Phosphatase 97 40 - 150 U/L 01/14/2024 11:44 AM [facility] ALT 20 5 - 55 U/L 01/14/2024 11:44 AM [facility] AST 20 5 - 34 U/L 01/14/2024 11:44 AM [facility] Anion Gap 11 6 - 16 01/14/2024 11:44 AM [facility] BUN/Creatinine Ratio 40(H) 7 - 23 01/14/2024 11:44 AM [facility] Osmolality Calculated 293 275 - 295 mOsm/kg 01/14/2024 11:44 AM [facility] Albumin/Globulin Ratio 0.9(L) 1.1 - 2.3 01/14/2024 11:44 AM [facility] eGFR by CKD-EPI 67(L) >=90 mL/min/1.7 3 m2 01/14/2024 11:44 AM [facility] Blood BLOOD SPECIMEN / Unknown Lab Venipuncture / Unknown 01/14/2024 11:13 AM CDT 01/14/2024 11:18 AM CDT Remi Beckett MD LAB - CHEMISTRY ORDERABLES [facility] [address] [place] [id number], [facility] [phone] * (ABNORMAL) CBC WITH DIFFERENTIAL (01/14/2024 11:13 AM T) WBC 8.6 4.0 - 10.7 x10E9/L 01/14/2024 11:30 AM [facility] RBC Count 5.49(H) 3.90 - 5.20 x10E12/L 01/14/2024 11:30 AM [facility] Hemoglobin 15.3 11.9 - 15.8 g/dL 01/14/2024 11:30 AM [facility] Hematocrit 44.4 34.8 - 46.1 % 01/14/2024 11:30 AM [facility] MCV 80.9 80.0 - 98.0 fL 01/14/2024 11:30 AM [facility] MCH 27.9 26.7 - 33.6 pg 01/14/2024 11:30 AM [facility] MCHC 34.5 31.7 - 36.3 g/dL 01/14/2024 11:30 AM [facility] RDW-CV 13.3 11.3 - 14.8 % 01/14/2024 11:30 AM [facility] Platelet Count 275 150 - 420 x10E9/L 01/14/2024 11:30 AM [facility] MPV 10.0 7.8 - 11.4 fL 01/14/2024 11:30 AM [facility] Neutrophil % 65.6 41.0 - 74.0 % 01/14/2024 11:30 AM [facility] Lymphocyte % 19.0 17.0 - 47.0 % 01/14/2024 11:30 AM [facility] Monocyte % 8.8 3.0 - 11.0 % 01/14/2024 11:30 AM [facility] Eosinophil % 5.8 0.0 - 7.0 % 01/14/2024 11:30 AM [facility] Basophil % 0.6 0.0 - 1.6 % 01/14/2024 11:30 AM [facility] Immature Granulocytes % 0.2 0.0 - 1.0 % 01/14/2024 11:30 AM [facility] Neutrophil Absolute 5.67 1.60 - 7.50 x10E9/L 01/14/2024 11:30 AM [facility] Lymphocyte Absolute 1.64 1.00 - 4.40 x10E9/L 01/14/2024 11:30 AM [facility] Monocyte Absolute 0.76 0.15 - 1.00 x10E9/L 01/14/2024 11:30 AM [facility] Eosinophil Absolute 0.50 0.00 - 0.60 x10E9/L 01/14/2024 11:30 AM [facility] Basophil Absolute 0.05 0.00 - 0.13 x10E9/L 01/14/2024 11:30 AM [facility] Blood BLOOD SPECIMEN / Unknown Lab Venipuncture / Unknown 01/14/2024 11:13 AM CDT 01/14/2024 11:18 AM [facility] Remi Beckett MD LAB - HEMATOLOGY ORDERABLES [facility] [address] [place] [address], [facility] [phone] documented in this encounter Visit Diagnoses Diagnosis Papillary carcinoma of thyroid (HCC)- Primary Malignant neoplasm of thyroid gland documented in this encounter Care Teams Restaurant Cul[employer] Relationship Specialty Start Date End Date Yaya Villatoro MD [address] [facility] [address] [place] [phone] PCP - General Internal Medicine 05/04/23 Joseph Manzanares MD [address] [place] [id number] Internal Medicine 04/21/23 documented as of this encounter
--- OUTSIDE RECORDS SUMMARY | 2024-07-23 07:08 | XMS_ITS | Encounter Summary ---
Author Organization [facility] Health Address [address] [place] [address] Care Team Providers Care Supervisor Inventory Merchandising Name Role Phone Joseph Manzanares MD Unavailable Yaya Villatoro MD Primary Care Provider [phone]- [phone] Encounter Details Date Type Department Care Team (Latest Contact Info) Description 10/25/2023 2:25 PM CDT - 10/25/2023 11:59 PM CDT Hospital Encounter [facility] OP DRAW STATION [address] [place] [address] Yaya Villatoro MD [address] [facility] [address] [place] [address] Discharge Disposition: Home or Self [...] Date Recorded PHQ2 TOTAL SCORE 1 11/25/2022 [facility] [...] naloxone HCl (Narcan) 4 MG/0.1ML nasal spray [place] 1 (one) spray into the nose as [...] 180 days 1 mL 2 10/25/2023 4 HYDROcodone-acetaminophe n ([place]) 5-325 MG tabletIndications:Cervic al spine tumor,Cancer, metastatic to bone (HCC),Thyroid cancer (HCC),Malignant tumor of thyroid gland (HCC),Secondary malignant neoplasm of bone (HCC) Take 1 (one) tablet by mouth every 8 hours as needed for Pain 12 tablet 10/20/2023 4 documented as of this encounter Plan of Treatment Upcoming Encounters Date Type Department Care Team (Late st Contact Info) Description 07/25/2024 10:00 AM RN ORTHO Office Visit [facility] - Endocrinology [address] [place] [address], [place] [address] Yosi Bustamante MD [address] [place] [address] [place] [address] 07/26/2024 10:00 AM RN ORTHO Appointment [facility] DIAGNOSTIC RAD [address] [place] [address] Neri Delgado MD [address] [place] [address] 07/26/2024 10:00 AM RN ORTHO Office Visit [facility] - ENT [address] [place] [phone] Myra Farmer, UNIVERSITY ADMINISTRATOR [address] [place] [address] [place] [phone] 07/26/2024 11:15 AM RN ORTHO Office Visit [facility] - ENT [address] [place] [phone] Neri Delgado MD [address] [place] [address] 08/02/2024 2:20 PM RN ORTHO Appointment [facility] [address] [place] [address] 08/02/2024 3:00 PM RN ORTHO Office Visit [facility] - Hematology/Oncology [address] [place] [phone] Remi Beckett MD [address] [place] [phone] 08/18/2024 1:45 PM RN ORTHO Office Visit [facility] - ENT [address] [place] [phone] Neri Delgado MD [address] [place] [phone] documented as of this encounter Procedures Procedure Name Priority Date/Time Associated Diagnosis Comments THYROGLOBULIN REFLEX PROFILE Routine 10/25/2023 2:45 PM CDT Postoperative hypothyroidism Thyroid cancer (HCC) Hypocalcemia Other hypoparathyroidism Malignant tumor of thyroid gland (HCC) Cancer, metastatic to bone (HCC) THYROGLOBULIN BY ANTONIETA RFLXED Routine 10/25/2023 2:45 PM CDT Postoperative hypothyroidism Thyroid cancer (HCC) Hypocalcemia Other hypoparathyroidism Malignant tumor of thyroid gland (HCC) Cancer, metastatic to bone (HCC) RENAL FUNCTION PANEL Routine 10/25/2023 2:45 PM CDT Postoperative hypothyroidism Thyroid cancer (HCC) Hypocalcemia Other hypoparathyroidism Malignant tumor of thyroid gland (HCC) Cancer, metastatic to bone (HCC) TSH Routine 10/25/2023 2:45 PM CDT Postoperative hypothyroidism Thyroid cancer (HCC) Hypocalcemia Other hypoparathyroidism Malignant tumor of thyroid gland (HCC) Cancer, metastatic to bone (HCC) documented in this encounter Results * (ABNORMAL) THYROGLOBULIN BY ANTONIETA RFLXED (10/25/2023 2:45 PM CDT) Thyroglobulin by ANTONIETA 805.0(H) 1.5 - 38.5 ng/mL 10/27/2023 7:08 PM CDT [facility] ([facility]) Comment: Results confirmed on dilution. According to the National Academy of Clinical Biochemistry, the reference interval for Thyroglobulin (TG) should be related to euthyroid patients and not for patients who underwent thyroidectomy. TG reference intervals for these patients depend on the residual mass of the thyroid tissue left after surgery. Establishing a post-operative baseline is recommended. The assay limit of quantitation is 0.1 ng/mL Thyroglobulin measured by [employer] [place] [employer] Blood BLOOD SPECIMEN / Unknown Lab Venipuncture / Unknown 10/25/2023 2:45 PM CDT 10/25/2023 2:58 PM CDT [facility] ([facility]) - 10/27/2023 7:08 PM CDT Performed at: ??01 - [facility] ??[id number] Rn Hospice: Oral Melendez PhD, Phone: ??[phone] Yosi Bustamante MD LAB - CHEMISTRY ORD ERABLES [facility] ([facility]) [address] [place] [address], [facility] * (ABNORMAL) RENAL FUNCTION PANEL (10/25/2023 2:45 PM CDT) BUN 10 7 - 26 mg/dL 10/25/2023 [...] >=90 mL/min/1.7 3 m2 10/25/2023 3:37 PM [facility] Blood BLOOD SPECIMEN / Unknown Lab Venipuncture / Unknown 10/25/2023 2:45 PM CDT 10/25/2023 3:03 PM CDT Yosi Bustamante MD LAB - CHEMISTRY ORD ERABLES Performing Organization Address City/[facility]/ZIP Co de Phone Number [facility] [address] [place] [address], [facility] [phone] * THYROGLOBULIN REFLEX PROFILE (10/25/2023 2:45 PM CDT) Thyroglobulin Antibody <1.0 0.0 - 0.9 IU/mL 10/27/2023 7:08 PM CDT [facility] ([facility]) Comment: Thyroglobulin Antibody measured by [employer] It should be noted that the presence of thyroglobulin antibodies may not be pathogenic nor diagnostic, especially at very low levels. The assay registrar assistant has found that four percent of individuals without evidence of thyroid disease or autoimmunity will have positive TgAb levels up to 4 IU/mL. Blood BLOOD SPECIMEN / Unknown Lab Venipuncture / Unknown 10/25/2023 2:45 PM CDT 10/25/2023 2:58 PM CDT Narrative [facility] ([facility]) - 10/27/2023 7:08 PM CDT Performed at: ??01 - [facility] [id number] [place], [place] ??[id number] Rn Hospice: Oral Melendez PhD, Phone: ??[phone] Yosi Bustamante MD LAB - CHEMISTRY ORD ERABLES [facility] ([facility]) [address] [place] [address] * (ABNORMAL) TSH (10/25/2023 2:45 PM CDT) TSH <0.010(L) 0.350 - 4.940 uIU/mL 10/25/2023 3:55 PM CDT [facility] Blood BLOOD SPECIMEN / Unknown Lab Venipuncture / Unknown 10/25/2023 2:45 PM CDT 10/25/2023 3:03 PM CDT Yosi Bustamante MD LAB - CHEMISTRY ORD ERABLES [facility] [address] [place] [address], [facility] [phone] documented in this encounter Visit Diagnoses Diagnosis Postoperative hypothyroidism Postsurgical hypothyroidism Thyroid cancer (HCC) Malignant neoplasm of thyroid gland Hypocalcemia Other hypoparathyroidism (HCC) Malignant tumor of thyroid gland (HCC) Malignant neoplasm of thyroid gland Cancer, metastatic to bone (HCC) Secondary malignant neoplasm of bone and bone marrow documented in this encounter Care Teams Supervisor Inventory Merchandising Relationship Specialty Start Date End Date Yaya Villatoro MD [address] [phone] PCP - General Internal Medicine 05/04/23 Joseph Manzanares MD [address] [place] [phone] Internal Medicine 04/21/23 documented as of this encounter
--- OUTSIDE RECORDS SUMMARY | 2024-07-23 07:08 | XMS_ITS | Encounter Summary ---
Author Organization [facility] Health Address [address] [place] [address] Care Team Providers Care Produce Production Team Member Name Role Phone Joseph Manzanares MD Unavailable Yaya Villatoro MD Primary Care Provider [phone]- [phone] Encounter Details Date Type Department Care Team (Latest Contact Info) Description 10/22/2023 Travel Social History Tobacco Use Types Packs/Day [...] PHQ2 TOTAL SCORE 1 11/25/2022 [facility] - Occupational [...] st Contact Info) Description 07/25/2024 10:00 AM GANG DRILL PRESS OPERATOR [facility] [address] [place] [phone] Yosi Bustamante MD [address] [place] [address] 2L [place] [address] 07/26/2024 10:00 AM GANG DRILL PRESS OPERATOR Appointment [facility] [address] [place] [address] Neri Delgado MD [address] [place] [address] 07/26/2024 10:00 AM GANG DRILL PRESS OPERATOR Office Visit [facility] - ENT [address] [place] [phone] Myra Farmer, CLINICAL ADVISOR [address] [place] [address] 2L [place] [phone] 07/26/2024 11:15 AM GANG DRILL PRESS OPERATOR Office Visit [facility] - ENT [address] [place] [phone] Neri Delgado MD [address] [place] [address] 08/02/2024 2:20 PM GANG DRILL PRESS OPERATOR Appointment [facility] [address] [place] [address] 08/02/2024 3:00 PM GANG DRILL PRESS OPERATOR Office Visit [facility] - Hematology/Oncology [address] [place] [phone] Remi Beckett MD [address] [place] [phone] 08/18/2024 1:45 PM GANG DRILL PRESS OPERATOR Office Visit [facility] - ENT [address] [place] [address] Neri Delgado MD [address] [place] [phone] documented as of this encounter Visit Diagnoses Not on filedocumented in this encounter Care Teams Produce Production Team Member Relationship Specialty Start Date End Date Yaya Villatoro MD [address] [phone] PCP - General Internal Medicine 05/04/23 Joseph Manzanares MD [address] [place] [phone] Internal Medicine 04/21/23 documented as of this encounter
--- OUTSIDE RECORDS SUMMARY | 2024-07-23 07:08 | XMS_ITS | Encounter Summary ---
Author Organization [facility] Health Address [address] [place] [address] Care Team Providers Care Decorator Inspector Name Role Phone Joseph Manzanares MD Unavailable Yaya Villatoro MD Primary Care Provider [phone]- [phone] Reason for Referral * OP/Amb RFL Auth (Routine) - Pending Review Specialty Diagnoses / Procedures Referred By Contac t Referred To Contact Diagnoses Malignant tumor of thyroid gland (HCC) Procedures EKG 12-LEAD Remi Beckett MD [address] [place] [address] Referral ID Status Reason Start Date Expiration Date V isits Requested Visits Authorized [id number] Pending Review 10/21/2023 10/20/2024 1 1 Encounter Details Date Type Department Care Team (Latest Contact Info) Description 11/01/2023 11:00 AM CDT - 11/01/2023 11:59 PM CDT Hospital Encounter [facility] EKG/HOLTER [address] [place] [address] Unknown, Provider Discharge Disposition: Home or Self Care Social [...] [facility] [...] naloxone HCl (Narcan) 4 MG/0.1ML nasal spray [place] 1 (one) spray into the nose as [...] 180 days 1 mL 2 10/25/2023 4 fluconazole (Diflucan) 100 MG tablet Take 1 (one) tablet by mouth once daily 7 tablet 10/28/2023 4 HYDROcodone-acetaminophe n ([place]) 5-325 MG tabletIndications:Cervic al spine tumor,Cancer, metastatic to bone (HCC),Thyroid cancer (HCC),Malignant tumor of thyroid gland (HCC),Secondary malignant neoplasm of bone (HCC) Take 1 (one) tablet by mouth every 8 hours as needed for Pain 12 tablet 10/20/2023 4 hydrOXYzine HCl (Atarax) 10 MG tablet TAKE 1 TABLET BY MOUTH TWICE A DAY AND 1 TABLET DAILY NEEDED 10/29/2023 4 documented as of this encounter Plan of Treatment Upcoming Encounters Date Type Department Care Team (Late st Contact Info) Description 07/25/2024 10:00 AM LIFE ENRICHMENT DIRECTOR Office Visit [facility] - Endocrinology [address] [place] [phone] Yosi Bustamante MD [address] [place] [address] 2L [place] [address] 07/26/2024 10:00 AM LIFE ENRICHMENT DIRECTOR Appointment [facility] DIAGNOSTIC RAD [address] [place] [address] Neri Delgado MD [address] [place] [address] 07/26/2024 10:00 AM LIFE ENRICHMENT DIRECTOR [facility] ENT [address] [place] [phone] Myra Farmer, SAFETY AND HEALTH MANAGER [address] [place] [address] 2L [place] [phone] 07/26/2024 11:15 AM LIFE ENRICHMENT DIRECTOR Office Visit [facility] - ENT [address] [place] [phone] Neri Delgado MD [address] [place] [address] 08/02/2024 2:20 PM LIFE ENRICHMENT DIRECTOR Appointment [facility] CENTER [address] [place] [address] 08/02/2024 3:00 PM LIFE ENRICHMENT DIRECTOR Office Visit [facility] - Hematology/Oncology [address] [place] [address] Remi Beckett MD [address] [place] [address] 08/18/2024 1:45 PM LIFE ENRICHMENT DIRECTOR Office Visit [facility] - ENT [address] [place] [phone] Neri Delgado MD [address] [place] [phone] documented as of this encounter Procedures Procedure Name Priority Date/Time Associated Diagnosis Comments EKG 12-LEAD Routine 11/01/2023 11:15 AM CDT Malignant tumor of thyroid gland (HCC) documented in this encounter Results * EKG 12-LEAD (11/01/2023 11:15 AM CDT) Ventricular Rate 81 BPM [facility] Atrial Rate 81 BPM [facility] P-R Interval 118 ms [facility] QRS Duration ms 86 ms [facility] Q-T Interval ms 398 ms H MUSE QTC Calculation (Bezet) 462 ms [facility] Calculated P [place] 58 degrees [facility] Calculated R [place] 35 degrees [facility] Calculated T [place] 44 degrees [facility] Interpretation EKG NORMAL SINUS RHYTHM POSSIBLE LEFT ATRIAL ENLARGEMENT BORDERLINE ECG WHEN COMPARED WITH ECG OF 14-SEP-2022 13:58, NO SIGNIFICANT CHANGE WAS FOUND Confirmed by CLARE ROMERO, CARISSARIZVI ([id number]) on 11/03/2023 8:25:26 PM [facility] MUSE 11/01/2023 11:1 5 AM CDT 11/03/2023 8:25 PM CDT Remi Beckett MD ECG ORDERABLES [facility] MUSE documented in this encounter Visit Diagnoses Diagnosis Malignant tumor of thyroid gland (HCC) Malignant neoplasm of thyroid gland documented in this encounter Care Teams Decorator Inspector Relationship Specialty Start Date End Date Yaya Villatoro MD [address] [place] [address] PCP - General Internal Medicine 05/04/23 Joseph Manzanares MD [address] [place] [phone] Internal Medicine 04/21/23 documented as of this encounter
--- OUTSIDE RECORDS SUMMARY | 2024-07-23 07:08 | XMS_ITS | Encounter Summary ---
Author Organization [facility] Health Address [address] [place] [address] Care Team Providers Care Mechanical Development Engineer Name Role Phone Joseph Manzanares MD Unavailable Yaya Villatoro MD Primary Care Provider [phone] Reason for Visit * Reason Comments Thyroid Cancer Thyroid Problem Hypothyroidism S/p t hyroidectomy S/p radioactive iodine treatment S/p radiation treatment to spine Metastases to bone Encounter Details Date Type Department Care Team (Latest Contact Info) Description 10/25/2023 1:00 PM CDT Office Visit [facility] - Endocrinology [address] [place] [address], [place] [phone] Yosi Bustamante MD [address] [place] [address] [place] [address] Postoperative hypothyroidism (Primary Dx); Thyroid cancer (HCC); Hypocalcemia; Other hypoparathyroidism; Malignant tumor of thyroid gland (HCC); Cancer, [...] Sign Reading Time Taken Comments Blood Pressure 136/65 10/25/2023 1:21 PM CDT Pulse 100 10/25/2023 1:21 PM CDT Temperature - - Respiratory Rate - - Oxygen Saturation 96% 10/25/2023 1:21 PM CDT Inhaled Oxygen Concentration - - Weight 63 kg (139 lb) 10/25/2023 1:21 PM CDT Height - - Body Mass Index 26.59 10/21/2023 1:17 PM CDT documented in this [...] this encounter Patient Instructions * Patient Instructions* Yosi Bustamante MD - 10/24/2023 10:23 PM CDT BP 136/65 Pulse 100 Wt 63 kg (139 lb) SpO2 96% How to Contact Us Between Office Visits Please make your follow up appointment before you leave the office today. If you are unable to makethe appointment today, please contact us at [phone]. To make an appointment: Please call us at [phone], option 1. To requesting refills or leaving a message for your doctor, Please call [phone], option 2. This is the option to speak to a nurse if they are available. We request that all prescription refills be requested during regular office phone hours. Phone lines are open from 8:00 am to 4:30 pm Wednesday through Wednesday. Our fax number is [phone]. After hours urgent calls that cannot wait untill phone lines are open on the next business day are given to the Endocrine physician pond scaler. Please call [phone] and identify yourself as a patient in our practice with your doctor's name. The drop wire operator will contact the physician pond scaler. You can g enerally expect a return call within 30 minutes. On weekends, physicians are seeing hospitalized patients and there may be a longer wait. Test and laboratory results: Our practice typically reports lab and test results through letters orMYChart, the [employer] online patient portal. Please allow 5 days from when your tests are completed to receive the results. Visit our website at [email or web address] for additional information about [employer] and an interactive health encyclopedia. PLAN THYROID/NECK ULTRASOUND TODAY LAB [facility] FOR TSH , TG AND RENAL PANEL REFERRAL TO HEM/ONC IF NOT ALREADY DONE TO CONSIDER SYSTEMIC TREATMENT FOR THYROID CANCER RETURN IN THREE MONTHS LAB EVERY THREE MONTHS IF TKI STARTED [...] LENVATINIB BUT NEEDS TO SEE DENTIST FIRST documented in this encounter Progress Notes * Yosi Bustamante MD - 10/25/2023 1:00 PM CDT HISTORY / PROGRESS NOTE Date: 10/25/2023 Chief Complaint or Purpose for Referral: THYROID CANCER HYPOTHYROIDISM S/P THYROIDECTOMY S/P RADIOACTIVE IODINE METS TO BONE History of Present Illness: 63 YEAR OLD WHITE FEMALE ELE 06/14/2023 LPOV AND TUS 11/02/2022 dysphagia( +) dyspnea(+) No dysphonia No change size of neck No neck pain or discomfort No nervousness No shakiness No palpitations Weight stable since last visit Wt Readings from Last 3 Encounters: 10/25/23 63 kg (139 lb) 10/21/23 64.3 kg (141 lb 11.2 oz) 10/18/23 64.2 kg (141 lb 9.6 oz) BM daily No diarrhea No constipation nocturia ONE TIME per night No edema No proximal muscle weakness HAD RADIATION TREATMENT DAILY LAST WEEK NOW HAS SORE THROAT AND HARD TO SWALLOW ABLE TO EAT OK RIGHT ARM DECREASED STRENGTH AND AND FEELING NO VOMITING NAUSEA A COUPLE OF TIMES ONLY TIRED ALL DAY (+) NO ENERGY FATIGUE (+) MOTHER AND HAVE IN THE LAST YEAR NEEDS HIP SURGERY WHICH HAS BEEN DELAYED DUE TO THYROID CANCER MANAGEMENT AND OTHER ISSUES [facility] Latest Reference Range & Units 08/21/22 14:58 11/02/22 12:44 11/02/22 12:46 01/20/23 12:43 06/10/23 12:29 09/09/23 13:43 10/21/23 14:50 TSH 0.350 - 4.940 uIU/mL 1.600 <0.010 (L) <0.010 (L) 0.010 (L) <0.010 (L) T4 Free 0.7 - 1.5 ng/dL 1.6 (H) 1.4 1.4 Thyroglobulin by ANTONIETA 1.5 - 38.5 ng/mL TNP 65.1 (H) 42.8 (H) 141.9 (H) 385.5 (H) Thyroglobulin Antibody 0.0 - 0.9 IU/mL <1.0 <1.0 <1.0 <1.0 <1.0 Latest Reference Range & Units 10/08/21 16:37 10/24/21 15:04 12/08/21 09:12 03/19/22 12:31 05/01/22 13:17 07/02/22 12:44 08/07/22 12:58 08/07/22 12:59 08/14/22 15:21 TSH 0.350 - 4.940 uIU/mL <0.010 (L) <0.010 (L) <0.010 (L) 0.261 (L) 0.769 1.008 165.839 (H) 208.891 (H) T4 Free 0.7 - 1.5 ng/dL 1.1 1.4 1.2 1.1 1.2 <0.4 (L) <0.4 (L) Thyroglobulin by ANTONIETA 1.5 - 38.5 ng/mL 17.9 26.9 71.9 (H) 151.8 (H) 205.9 (H) 383.0 (H) 629.0 (H) Thyroglobulin Antibody 0.0 - 0.9 IU/mL <1.0 <1.0 <1.0 <1.0 <1.0 <1.0 <1.0 [facility] Reference Range & Units 03/07/20 15:19 08/21/20 04:25 09/11/20 14:13 11/11/20 15:49 02/14/21 12:30 03/17/21 10:32 03/19/21 11:20 03/21/21 10:47 TSH 0.350 - 4.940 uIU/mL 1.520 2.526 0.900 0.028 (L) <0.010 (L) 139.797 (H) T4 Free 0.7 - 1.5 ng/dL 1.1 1.4 1.5 1.4 Thyroglobulin by ANTONIETA 1.5 - 38.5 ng/mL 192.2 (H) 0.9 (L) 1.9 1.7 7.9 8.4 Thyroglobulin Antibody 0.0 - 0.9 IU/mL <1.0 <1.0 <1.0 <1.0 <1.0 <1.0 [facility] Reference Range & Units 10/07/22 00:12 12/24/22 10:59 03/25/23 12:24 09/09/23 13:43 10/21/23 14:50 Sodium 136 - 145 mmol/L 143 139 138 Potassium 3.5 - 4.5 mmol/L 3.8 3.7 3.6 Chloride 98 - 107 mmol/L 106 104 103 CO2 22 - 29 mmol/L 25 24 22 Anion Gap 6 - 16 16 11 13 BUN 7 - 26 mg/dL 15 15 14 Creatinine 0.56 - 0.96 mg/dL 0.56 0.80 0.80 Creatinine POCT 0.30 - 1.30 mg/dL 0.75 0.88 eGFR >=90 mL/min/1.73 m2 >90 89 (L) 73 (L) 82 (L) 82 (L) Glucose 70 - 115 mg/dL 92 103 122 (H) Calcium 8.4 - 10.2 mg/dL 9.0 8.9 8.8 Magnesium 1.6 - 2.6 mg/dL 1.7 Phosphorus 2.9 - 5.1 mg/dL 5.3 (H) 4.7 BUN/Creatinine Ratio 7 - 23 27 (H) 19 18 Alkaline Phosphatase 40 - 150 U/L 85 ALT 5 - 55 U/L 15 AST 5 - 34 U/L 16 Protein Total 6.0 - 8.3 g/dL 7.4 Albumin 3.4 - 5.0 g/dL 3.8 3.8 Bilirubin Total 0.2 - 1.2 mg/dL 0.2 Osmolality Calculated 275 - 295 mOsm/kg 296 289 288 Albumin/Globulin Ratio 1.1 - 2.3 1.1 [facility] Reference Range & Units 10/21/23 14:50 WBC 4.0 - 10.7 x10E9/L 7.6 RBC 3.90 - 5.20 x10E12/L 4.83 Hemoglobin 11.9 - 15.8 g/dL 13.7 Hematocrit 34.8 - 46.1 % 41.1 MCV 80.0 - 98.0 fL 85.1 MCH 26.7 - 33.6 pg 28.4 MCHC 31.7 - 36.3 g/dL 33.3 Platelet Count 150 - 420 x10E9/L 290 RDW-CV 11.3 - 14.8 % 13.1 MPV 7.8 - 11.4 fL 9.6 Neutrophils % 41.0 - 74.0 % 68.6 Lymphocytes % 17.0 - 47.0 % 19.8 Monocytes % 3.0 - 11.0 % 9.3 Eosinophils % 0.0 - 7.0 % 1.6 Basophils % 0.0 - 1.6 % 0.4 Neutrophil Absolute 1.60 - 7.50 x10E9/L 5.24 Absolute Monocytes 0.15 - 1.00 x10E9/L 0.71 Eosinophils Absolute 0.00 - 0.60 x10E9/L 0.12 Absolute Basophils 0.00 - 0.13 x10E9/L 0.03 Immature Grans 0.0 - 1.0 % 0.3 Lymphocytes Absolute 1.00 - 4.40 x10E9/L 1.51 10/06/2023 PET PROCEDURE: PET CT WHOLE BODY, DATE/TIME OF EXAM: 10/06/2023 3:39 PM, LOCATION [facility] INDICATION: E89.0: Postoperative hypothyroidism C73: Thyroid [...] low-dose, non-contrast. No separate report for the CT. CT was used for attenuation correction and anatomic localization. Blood glucose level at the time of injection was 98 mg/dl. Patient's BMI is 26.08 kg/m??. FINDINGS: For reference, SUVmax of liver is 3.5. Head and neck: Normal metabolic uptake in the brain. Mild periodontal disease. Within the right thyroidectomy bed, there is a small focus of FDG activity with a SUV max of 5.9. Chest: [...] inflammation. Normal FDG activity is seen throughout the bowel. Benign-appearing bilateral inguinal nodes. Musculoskeletal: Postoperative changes of a C2-T2 posterior instrumented spinal fusion. There are multifocal areas [...] a C2-T2 posterior instrument spinal fusion. Multifocal areas of FDG activity in the cervical spine and within the T1 vertebral body correlate with MRI findings and are compatible with metastasis. 2.Small focus of FDG activity within the right thyroidectomy bed is concerning for disease recurrence. 3.There is a 5 mm right lower lobe pulmonary nodule without significant FDG uptake which is too small to characterize. Recommend continued follow-up. 08/19/2022 WBS PROCEDURE: NM THYROID WHOLE BODY SCAN, NM TUMOR LOCAL SPECT CT, DATE/TIME OF EXAM: 08/19/2022 3:24 PM, LOCATION [facility] INDICATION: E89.0: Postoperative hypothyroidism C73: Thyroid [...] right. A definite lytic lesion is not seen Impression: Focal uptake in anteriorly in the left aspect of the mid cervical spine, suggestive of metastatic disease. Further evaluation with MRI cervical spine is recommended to better evaluate the site of the recurrence and the proximity to the spinal cord. Collected 10/02/2022 09:59 ?? Status: Final result ?? Visible to patient: Yes (not seen) ?? Dx: Cervical spine tumor ?? 0 Result Notes ? Component ?? Final Diagnosis Spinal cord, extradural tumor, resection (A): - Metastatic carcinoma. - See comment. Spinal cord, extradural tumor, resection (B): - Metastatic carcinoma. - See comment. Comment: ??The histopathological and immunohistochemical features of this tumor, along with the patient's history, are compatible with a metastatic thyroid carcinoma. at 1313 ?? 11/02/2022 TUS Procedure Preformed:??Ultrasound Only Nodule Size:?? THYROID GLAND SURGICALLY ABSENT LYMPH NODES IDENTIFIED RIGHT NECK ?LEVEL ?VA?0.63 X 0.32 CM WITH HILAR LINE ?LEVEL ?VB?0.30 X 0.26 CM ?LEVEL?VB?0.31 X 0.30 CM LEFT NECK ?LEVEL ?VB?0.36 X 0.27 CM ?LEVEL ?IIA?0.60 X 0.36 CM ?LEVEL ?IIA ?0.38 X 0.27 CM Echogenicity:??NORMAL NECK?? Vascularity:??NORMAL NECK?? Number of Nodules Present:??SEE ABOVE?? Calcifications:??NONE?? Borders:??N/A (Brief 1-3; Ext. 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 Past Surgical History: No date: Bilateral Tubal Ligation (BTL) 10/02/2022: Cervical Fusion; N/A Comment: N/A; C2-T2 fusion and decompression C3-C7 and resection extramedullary spine tumor No date: Section No date: ENDOSCOPY, COLON, DIAGNOSTIC Comment: no polyp 08/19/2020: ENT SURGERY; N/A Comment: N/A; TOTAL THYROIDECTOMY WITH CENTRAL NECK DISSECTION, RIGHT AND LEFT NECK DISSECTIONS 08/19/2020: ENT SURGERY; N/A Comment: N/A; TRACHEAL TUMOR RESECTION 02/05/2022: ENT SURGERY; Right Comment: Right; EXCISION RIGHT CENTRAL NECK MASS 08/19/2020: LARYNGOSCOPY; N/A Comment: N/A; DIRECT LARYNGOSCOPY WITH BIOPSY No date: Polypectomy Comment: cervical Review of patient's family history indicates: Problem: Other Relation: Mother Name: Age of Onset: (Not Specified) Comment: xochilt; Status: Alive Problem: Diabetes Relation: Mother Name: Age of Onset: (Not Specified) Problem: Alcohol abuse Relation: Father Name: unknown since age 10 Age of Onset: (Not Specified) Comment: Status: Problem: Anxiety Disorder Relation: Sister Name: Age of Onset: (Not Specified) Comment: Status: Alive Problem: Depression Relation: Sister Name: Age of Onset: (Not Specified) Problem: Other Relation: Sister Name: Age of Onset: (Not Specified) Comment: xochilt Problem: Arthritis Relation: Sister Name: Age of Onset: (Not Specified) Problem: Diabetes Relation: Sister Name: Age of Onset: (Not Specified) Problem: Alcohol abuse Relation: Daughter Name: Age of Onset: (Not Specified) Comment: Status: Alive Problem: Drug Abuse Relation: Daughter Name: Age of Onset: (Not Specified) Problem: Learning Disability Relation: Son Name: Age of Onset: (Not Specified) Comment: Status: Alive Problem: Gout Relation: Brother Name: step Age of Onset: (Not Specified) Comment: Status: Alive Problem: Diabetes Relation: Brother Name: step Age of Onset: (Not Specified) Comment: Status: Alive Problem: Anxiety Disorder Relation: Sister Name: Age of Onset: (Not Specified) Comment: Status: Alive Problem: Depression Relation: Sister Name: Age of Onset: (Not Specified) Problem: Hypertension Relation: Sister Name: Age of Onset: (Not Specified) Problem: Alcohol abuse Relation: Sister Name: Age of Onset: (Not Specified) Problem: Diabetes Relation: Sister Name: half Age of Onset: (Not Specified) Comment: Status: Alive Problem: None Known Relation: Sister Name: Age of Onset: (Not Specified) Comment: Status: Alive Problem: Thyroid Disease Relation: Neg Hx Name: Age of Onset: (Not Specified) Social History Socioeconomic History Marital status: Spouse name: Not on file Number of children: Not on file Years of education: Not on file Highest education level: Not on file Occupational History Not on file Tobacco Use Smoking status: Some Days Packs/day: [...] 10/01 last Sexual activity: Yes Partners: Male Other Topics Concerns: Not on file Social History Narrative Lives with , also current tobacco user, has COPD. 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 Overall Financial Resource Strain (CARDIA) ? Difficulty of Paying Living Expenses: Not hard at all Food Insecurity: No Food Insecurity (10/02/2022) ? Hunger Vital Sign ? Worried About Running Out of Food in the Last Year: Never true ? Ran Out of Food in the Last Year: Never true Transportation Needs: No Transportation Needs (11/05/2022) ? OASIS A1250: Transportation ? Lack of Transportation (Medical): No ? Lack of Transportation (Non-Medical): No ? Patient Unable or Declines to Respond: No Stress: No Stress Concern Present (10/02/2022) ? [facility] of Occupational Health - Occupational Stress Questionnaire ? Feeling of Stress : Not at all Housing Stability: Low Risk (10/02/2022) ? Housing Stability Vital Sign ? Unable to Pay for Housing in the Last Year: No ? Number of Places Lived in the Last Year: 1 ? Unstable Housing in the Last Year: No Current Outpatient Medications: albuterol HFA (Proventil; Ventolin; Proair) 108 (90 Base) MCG/ACT inhaler, Inhale 2 (two) puffs by mouth every 6 hours as needed, Disp: , Rfl: atorvastatin (Lipitor) 40 MG tablet, TAKE 1 TABLET BY MOUTH EVERYDAY AT BEDTIME, Disp: 90 tablet, Rfl: 1 buPROPion SR 12hr (Wellbutrin-SR) 100 MG tablet, Take 1 (one) tablet by mouth 2 times daily, Disp: , Rfl: calcitriol (Rocaltrol) 0.5 MCG capsule, Take 1 (one) capsule by mouth once daily Reasons: Low Amount of Calcium in the Blood, Disp: 90 capsule, Rfl: 3 celecoxib (CeleBREX) 200 MG capsule, Take 1 (one) capsule by mouth once daily, Disp: 90 capsule, Rfl: 3 cyclobenzaprine (Flexeril) 5 MG tablet, Take 1 (one) tablet by mouth 3 times daily as needed, Disp:90 tablet, Rfl: 1 denosumab (Prolia) 60 MG/ML SC injection, Inject 1 mL subcutaneously once for 1 dose, Disp: 1 mL, Rfl: 0 famotidine (PEPCID) 20 MG tablet, Take 1 (one) tablet by mouth 2 times daily as needed, Disp: , Rfl: fluticasone propionate (Flonase) 50 MCG/ACT nasal spray, SPRAY 2 SPRAYS INTO EACH NOSTRIL EVERY DAY, Disp: 16 g, Rfl: 1 gabapentin (Neurontin) 300 MG capsule, Take 1 (one) capsule by mouth 3 times daily, Disp: 90 capsule, Rfl: 5 HYDROcodone-acetaminophen (Rolla) 5-325 MG tablet, Take 1 (one) tablet by mouth every 8 hours as needed for Pain, Disp: 12 tablet, Rfl: 0 hydrOXYzine HCl (Atarax) 25 MG tablet, Take 1 (one) tablet to 2 (two) tablets by mouth as needed, Disp: , Rfl: levothyroxine (Synthroid) 112 MCG tablet, Take 1 (one) tablet by mouth daily before breakfast Except Wednesday take one and a half pills Reasons: Cancer of Thyroid, Underactive Thyroid, Disp: 100 tablet, Rfl: 3 naloxone HCl (Narcan) 4 MG/0.1ML nasal spray, [place] 1 (one) spray into the nose as needed, Disp: , Rfl: oxybutynin CR 24hr (Ditropan-XL) 5 MG tablet, Take 1 (one) tablet by mouth once daily, Disp: 90 tablet, Rfl: 4 pantoprazole EC (Protonix) 40 MG tablet, TAKE ONE TABLET BY MOUTH ONCE DAILY FOR STOMACH, Disp: 90 tablet, Rfl: 0 PARoxetine (PAXIL) 40 MG tablet, Take 1 (one) tablet by mouth once daily, Disp: , Rfl: 2 traZODone (DESYREL) 50 MG tablet, Take 1 (one) tablet by mouth at bedtime, Disp: , Rfl: No current facility-administered medications for this visit. -- Kiwi Extract -- Anaphylaxis Physical Exam: Constitutional: Vital Signs: BP 136/65 Pulse 100 Wt 63 kg (139 lb) SpO2 96% Well developed, well nourished, white female, no acute distress, alert and oriented, normocephalic Appearance: WNL Eyes: Conjunctiva/lids WNL and EOM Intact ENT, Mouth: Hearing WNL and External ear/nose WNL Neck: No masses, symmetrical and Thyroid not enlarged Resp.:Effort nonlabored Lymph: Neck WNL MS: Stable without dislocation, laxity and USES CANE AND ROLLING WALKER, DECREASED STRENGTH RIGHT ARM AND HAND Areas Assessed: Head/neck, R/L upper extremities, Digits/nails and Inspection/palpatation of above WNL Skin: No rashes/lesions/ulcers and SKIN NORMAL TEXTURE AND TURGOR Neuro: Cranial nerves intact and DTR WNL Psych: Judgement/insight WNL, Oriented X 3, Memory WNL and Mood/affect WNL Accuchecks: NONE Assessment: Patient Active Problem List: Psychophysiologic insomnia Chronic [...] (HCC) Malignant tumor of thyroid gland (HCC) PLAN THYROID/NECK ULTRASOUND TODAY LAB [facility] FOR TSH , TG AND RENAL PANEL REFERRAL TO HEM/ONC IF NOT ALREADY DONE TO CONSIDER SYSTEMIC TREATMENT FOR THYROID CANCER RETURN IN THREE MONTHS LAB EVERY THREE MONTHS IF TKI STARTED [...] DAILY NEW PRESCRIPTION PROLIA INJECTION PRESCRIPTION ORDERED TO SPECIALTY PHARMACY PATIENT HAS BEEN PRESCRIBED LENVATINIB BUT NEEDS TO SEE DENTIST FIRST ADVISED TO GET BP MONITOR AND TAKE BP AT HOME DAILY, SITTING, FEET ON FLOOR REST FOR 15 MIN BEFORE TAKING BP Postoperative hypothyroidism - Plan: PROC ULTRASOUND THYROID W/WO FNA BIOPSY, TSH, THYROGLOBULIN REFLEX PROFILE, RENAL FUNCTION PANEL, denosumab (Prolia) 60 MG/ML SC injection, levothyroxine (Synthroid) 112 MCG tablet, DISCONTINUED: denosumab (Prolia) 60 MG/ML SC injection Thyroid cancer (HCC) - Plan: PROC ULTRASOUND THYROID W/WO FNA BIOPSY, TSH, THYROGLOBULIN REFLEX PROFILE, RENAL FUNCTION PANEL, denosumab (Prolia) 60 MG/ML SC injection, levothyroxine (Synthroid) 112 MCG tablet, DISCONTINUED: denosumab (Prolia) 60 MG/ML SC injection Hypocalcemia - Plan: PROC ULTRASOUND THYROID W/WO FNA BIOPSY, TSH, THYROGLOBULIN REFLEX PROFILE, RENAL FUNCTION PANEL, denosumab (Prolia) 60 MG/ML SC injection, DISCONTINUED: denosumab (Prolia) 60 MG/ML SC injection Other hypoparathyroidism - Plan: PROC ULTRASOUND THYROID W/WO FNA BIOPSY, TSH, THYROGLOBULIN REFLEXPROFILE, RENAL FUNCTION PANEL, denosumab (Prolia) 60 MG/ML SC injection, DISCONTINUED: denosumab (Prolia) 60 MG/ML SC injection Malignant tumor of thyroid gland (HCC) - Plan: PROC ULTRASOUND THYROID W/WO FNA BIOPSY, TSH, THYROGLOBULIN REFLEX PROFILE, RENAL FUNCTION PANEL, denosumab (Prolia) 60 MG/ML SC injection, levothyroxine (Synthroid) 112 MCG tablet, DISCONTINUED: denosumab (Prolia) 60 MG/ML SC injection Cancer, metastatic to bone (HCC) - Plan: PROC ULTRASOUND THYROID W/WO FNA BIOPSY, TSH, THYROGLOBULIN REFLEX PROFILE, RENAL FUNCTION PANEL, denosumab (Prolia) 60 MG/ML SC injection, levothyroxine (Synthroid) 112 MCG tablet, DISCONTINUED: denosumab (Prolia) 60 MG/ML SC injection Yosi Bustamante MD Professor of Internal Medicine Division of Endocrinology Department of Internal Medicine documented in this encounter Procedure Notes * Yosi Bustamante MD - 10/25/2023 2:21 PM CDTAssociated Order(s): PROC ULTRASOUND THYROID W/WO FNA BIOPSY Procedure(s): [place] US SOFT TISS HEAD&NCK R-T IMG Pre-Procedure Diagnose(s): Postoperative hypothyroidism; Thyroid cancer (HCC); Hypocalcemia; Other hypoparathyroidism (HCC); Malignant tumor of thyroid gland (HCC); Cancer, metastatic to bone (HCC) Ultrasound Of Thyroid Ultrasound of the Thyroid PHYSICIAN Yosi Bustamante MD FELLOW NONE Test Date: 10/25/2023 Test Indication: Patient Active Problem List: Psychophysiologic insomnia Chronic [...] (HCC) Malignant tumor of thyroid gland (HCC) Referring Physician: Dr. Yaya Villatoro MD Procedure Preformed: Ultrasound Only Nodule Size: THYROID GLAND SURGICALLY ABSENT LYMPH NODES IDENTIFIED RIGHT NECK LEVEL IIA 0.41 X 0.28 CM LEFT NECK LEVEL VB 0.63 X 0.30 CM LEVEL IIA 0.78 X 0.39 CM Echogenicity: NORMAL NECK Vascularity: NORMAL NECK Number of Nodules Present: SEE ABOVE Calcifications: NONE Borders: N/A ASSESSMENT BENIGN APPEARING LYMPH NODES BIOCHEMICAL EVIDENCE OF THYROID CANCER ANATOMICA EVIDENCE OF THYROID CANCER Recommendations: PLAN THYROID/NECK ULTRASOUND TODAY LAB [facility] FOR TSH , TG AND RENAL PANEL REFERRAL TO HEM/ONC IF NOT ALREADY DONE TO CONSIDER SYSTEMIC TREATMENT FOR THYROID CANCER RETURN IN THREE MONTHS LAB EVERY THREE MONTHS IF TKI STARTED [...] FIRST Yosi Bustamante MD Division of Endocrinology documented in this encounter Plan of Treatment Upcoming Encounters Date Type Department Care Team (Late st Contact Info) Description 07/25/2024 10:00 AM DESK CLERK Office Visit [facility] - Endocrinology [address] [place] [phone] Yosi Bustamante MD [address] [place] [address] 2L [place] [address] 07/26/2024 10:00 AM DESK CLERK Appointment [facility] [address] [place] [phone] Neri Delgado MD [address] [place] [phone] 07/26/2024 10:00 AM DESK CLERK Office Visit [facility] - ENT [address] [place] [phone] Myra Farmer, ART THERAPY SPECIALIST [address] [place] [address] 2L [place] [phone] 07/26/2024 11:15 AM DESK CLERK [facility] [address] [place] [phone] Neri Delgado MD [address] [place] [phone] 08/02/2024 2:20 PM DESK CLERK Appointment [facility] [address] [place] [phone] 08/02/2024 3:00 PM DESK CLERK Office Visit [facility] - Hematology/Oncology [address] [place] [phone] Remi Beckett MD [address] [place] [phone] 08/18/2024 1:45 PM DESK CLERK Office Visit [facility] - ENT [address] [place] [phone] Neri Delgado MD [address] [place] [address] documented as of this encounter Procedures Procedure Name Priority Date/Time Associated Diagnosis Comments [place] US SOFT TISS HEAD&NCK R-T IMG Routine 10/25/2023 2:21 PM CDT Postoperative hypothyroidism Thyroid cancer (HCC) Hypocalcemia Other hypoparathyroidism Malignant tumor of thyroid gland (HCC) Cancer, metastatic to bone (HCC) documented in this encounter Results * (ABNORMAL) RENAL FUNCTION PANEL (10/25/2023 2:45 PM CDT) BUN 10 7 - 26 mg/dL 10/25/2023 3:[address] [facility] Creatinine 0.81 0.56 - 0.96 mg/dL 10/25/2023 3:37 PM [facility] Sodium 139 136 - 145 mmol/L 10/25/2023 3:37 PM [facility] Potassium 3.8 3.5 - 4.5 mmol/L 10/25/2023 3:37 PM [facility] Chloride 103 98 - 107 mmol/L 10/25/2023 3:37 PM [facility] CO2 27 22 - 29 mmol/L 10/25/2023 3:37 PM [facility] Glucose 88 70 - 115 mg/dL 10/25/2023 3:37 PM [facility] Albumin 3.9 3.4 - 5.0 g/dL 10/25/2023 3:37 PM [facility] Calcium 8.8 8.4 - 10.2 mg/dL 10/25/2023 3:37 PM [facility] Phosphorus 4.7 2.9 - 5.1 mg/dL 10/25/2023 3:37 PM [facility] Anion Gap 9 6 - 16 10/25/2023 3:37 PM [facility] BUN/Creatinine Ratio 12 7 - 23 10/25/2023 3:37 PM [facility] Osmolality Calculated 286 275 - 295 mOsm/kg 10/25/2023 3:37 PM [facility] eGFR by CKD-EPI 81(L) >=90 mL/min/1.7 3 m2 10/25/2023 3:37 PM CDT [facility] Blood BLOOD SPECIMEN / Unknown Lab Venipuncture / Unknown 10/25/2023 2:45 PM CDT 10/25/2023 3:03 PM CDT Yosi Bustamante MD LAB - CHEMISTRY ORD ERABLES [facility] [address] [place] [address], [place] [phone] * [place] US SOFT TISS HEAD&NCK R-T IMG (10/25/2023 [...] Yosi Bustamante MD PROCEDURE/MINOR MADELINE GICAL ORDERABLES documented in this encounter Visit Diagnoses Diagnosis Postoperative hypothyroidism- Primary Postsurgical hypothyroidism Thyroid cancer (HCC) Malignant neoplasm of thyroid gland Hypocalcemia Other hypoparathyroidism (HCC) Malignant tumor of thyroid gland (HCC) Malignant neoplasm of thyroid gland Cancer, metastatic to bone (HCC) Secondary malignant neoplasm of bone and bone marrow documented in this encounter Care Teams Mechanical Development Engineer Relationship Specialty Start Date End Date Yaya Villatoro MD [address] [facility] [address] [place] [phone] PCP - General Internal Medicine 05/04/23 Joseph Manzanares MD [address] [place] [phone] Internal Medicine 04/21/23 documented as of this encounter
--- OUTSIDE RECORDS SUMMARY | 2024-07-23 07:08 | XMS_ITS | Encounter Summary ---
Author Organization [facility] Health Address [address] [place] [address] Care Team Providers Care Back Order Clerk Name Role Phone Joseph Manzanares MD Unavailable Yaya Villatoro MD Primary Care Provider +1- [phone] Encounter Details Date Type Department Care Team (Latest Contact Info) Description 10/21/2023 2:45 PM CDT - 10/21/2023 11:59 PM CDT Hospital Encounter [facility] [address] [facility], 2nd [place] [address] Discharge Disposition: Home or Self Care Social [...] PHQ2 TOTAL SCORE 1 11/25/2022 [facility] of Occupat ional Health - Occupational Stress [...] naloxone HCl (Narcan) 4 MG/0.1ML nasal spray Ches[place] 1 (one) spray into the nose as [...] dose 1 mL 06/14/2023 10/25/2023 HYDROcodone-acetamino phen (Evart) 5-325 MG tabletIndications:Cer vical spine tumor,Cancer, metastatic [...] st Contact Info) Description 07/25/2024 10:00 AM TRIPE SCRAPER Office Visit [facility] - Endocrinology [address] [place] [phone] Yosi Bustamante MD [address] [place] [address] [place] [address] 07/26/2024 10:00 AM TRIPE SCRAPER Appointment [facility] [address] [place] [phone] Neri Delgado MD [address] [place] [address] 07/26/2024 10:00 AM TRIPE SCRAPER Office Visit [facility] - ENT [address] [place] [phone] Myra Farmer, LIGHT INDUSTRIAL SUPERVISOR [address] [place] [address] [place] [phone] 07/26/2024 11:15 AM TRIPE SCRAPER Office Visit [facility] - ENT [address] [place] [phone] Neri Delgado MD [address] [place] [address] 08/02/2024 2:20 PM TRIPE SCRAPER Appointment [facility] [address] [place] [address] 08/02/2024 3:00 PM TRIPE SCRAPER Office Visit [facility] - Hematology/Oncology [address] [place] [phone] Remi Beckett MD [address] [place] [phone] 08/18/2024 1:45 PM TRIPE SCRAPER Office Visit [facility] - ENT [address] [place] [phone] Neri Delgado MD [address] [place] [address] documented as of this encounter Procedures Procedure Name Priority Date/Time Associated Diagnosis Comments TSH REFLEX FREE T4 Routine 10/21/2023 2: 50 PM CDT Malignant tumor of thyroid gland (HCC) CBC W AUTO DIFFERENTIAL STAT 10/21/2023 2:50 PM CDT Malignant tumor of thyroid gland (HCC) COMPREHENSIVE METABOLIC PANEL STAT 10/21/2023 2:50 PM CDT Malignant tumor of thyroid gland (HCC) T4 FREE Routine 10/21/2023 2:50 PM CDT Malignant tumor of thyroid gland (HCC) documented in this encounter Results * T4 FREE (10/21/2023 2:50 PM CDT) T4 Free 1.4 0.7 - 1.5 ng/dL 10/21/2023 4:22 PM CDT [facility] Blood BLOOD SPECIMEN / Unknown Lab Venipuncture / Unknown 10/21/2023 2:50 PM CDT 10/21/2023 3:04 PM CDT Remi Beckett MD LAB - CHEMISTRY ORDERABLES [facility] [address] [place] [address], [facility] [phone] * (ABNORMAL) COMPREHENSIVE METABOLIC PANEL (10/21/2023 2:50 PM CDT) BUN 14 7 - 26 mg/dL 10/21/2023 3:32 PM CDT [facility] Creatinine 0.80 0.56 - 0.96 mg/dL 10/21/2023 3:32 PM [facility] Sodium 138 136 - 145 mmol/L 10/21/2023 3:32 PM [facility] Potassium 3.6 3.5 - 4.5 mmol/L 10/21/2023 3:32 PM [facility] Chloride 103 98 - 107 mmol/L 10/21/2023 3:32 PM [facility] CO2 22 22 - 29 mmol/L 10/21/2023 3:32 PM [facility] Glucose 122(H) 70 - 115 mg/dL 10/21/2023 3:32 PM [facility] Calcium 8.8 8.4 - 10.2 mg/dL 10/21/2023 3:32 PM [facility] Protein Total 7.4 6.0 - 8.3 g/dL 10/21/2023 3:32 PM [facility] Albumin 3.8 3.4 - 5.0 g/dL 10/21/2023 3:32 PM [facility] Bilirubin Total 0.2 0.2 - 1.2 mg/dL 10/21/2023 3:32 PM [facility] Alkaline Phosphatase 85 40 - 150 U/L 10/21/2023 3:32 PM [facility] ALT 15 5 - 55 U/L 10/21/2023 3:32 PM [facility] AST 16 5 - 34 U/L 10/21/2023 3:32 PM [facility] Anion Gap 13 6 - 16 10/21/2023 3:32 PM [facility] BUN/Creatinine Ratio 18 7 - 23 10/21/2023 3:32 PM [facility] Osmolality Calculated 288 275 - 295 mOsm/kg 10/21/2023 3:32 PM [facility] Albumin/Globulin Ratio 1.1 1.1 - 2.3 10/21/2023 3:32 PM [facility] eGFR by CKD-EPI 82(L) >=90 mL/min/1.7 3 m2 10/21/2023 3:32 PM [facility] Blood BLOOD SPECIMEN / Unknown Lab Venipuncture / Unknown 10/21/2023 2:50 PM CDT 10/21/2023 3:04 PM CDT Remi Beckett MD LAB - CHEMISTRY ORDERABLES Performing Organization Address [facility] Co de Phone Number [facility] [address] [place] [phone] [phone] * CBC W/ DIFFERENTIAL (10/21/2023 2:50 PM CDT) WBC 7.6 4.0 - 10.7 x10E9/L 10/21/2023 3:09 PM [facility] RBC Count 4.83 3.90 - 5.20 x10E12/L 10/21/2023 3:09 PM [facility] Hemoglobin 13.7 11.9 - 15.8 g/dL 10/21/2023 3:09 PM [facility] Hematocrit 41.1 34.8 - 46.1 % 10/21/2023 3:09 PM [facility] MCV 85.1 80.0 - 98.0 fL 10/21/2023 3:09 PM [facility] MCH 28.4 26.7 - 33.6 pg 10/21/2023 3:09 PM [facility] MCHC 33.3 31.7 - 36.3 g/dL 10/21/2023 3:09 PM [facility] RDW-CV 13.1 11.3 - 14.8 % 10/21/2023 3:09 PM [facility] Platelet Count 290 150 - 420 x10E9/L 10/21/2023 3:09 PM [facility] MPV 9.6 7.8 - 11.4 fL 10/21/2023 3:09 PM [facility] Neutrophil % 68.6 41.0 - 74.0 % 10/21/2023 3:09 PM [facility] Lymphocyte % 19.8 17.0 - 47.0 % 10/21/2023 3:09 PM [facility] Monocyte % 9.3 3.0 - 11.0 % 10/21/2023 3:09 PM [facility] Eosinophil % 1.6 0.0 - 7.0 % 10/21/2023 3:09 PM [facility] Basophil % 0.4 0.0 - 1.6 % 10/21/2023 3:09 PM [facility] Immature Granulocytes % 0.3 0.0 - 1.0 % 10/21/2023 3:09 PM [facility] Neutrophil Absolute 5.24 1.60 - 7.50 x10E9/L 10/21/2023 3:09 PM [facility] Lymphocyte Absolute 1.51 1.00 - 4.40 x10E9/L 10/21/2023 3:09 PM [facility] Monocyte Absolute 0.71 0.15 - 1.00 x10E9/L 10/21/2023 3:09 PM [facility] Eosinophil Absolute 0.12 0.00 - 0.60 x10E9/L 10/21/2023 3:09 PM CDT [facility] Basophil Absolute 0.03 0.00 - 0.13 x10E9/L 10/21/2023 3:09 PM CDT [facility] Blood BLOOD SPECIMEN / Unknown Lab Venipuncture / Unknown 10/21/2023 2:50 PM CDT 10/21/2023 3:04 PM CDT Remi Beckett MD LAB - HEMATOLOGY ORDERABLES [facility] [address] [place] [address], [place] [phone] * (ABNORMAL) TSH REFLEX FREE T4 (10/21/2023 2:50 PM CDT) TSH <0.010(L) 0.350 - 4.940 uIU/mL 10/21/2023 3:49 PM CDT [facility] Blood BLOOD SPECIMEN / Unknown Lab Venipuncture / Unknown 10/21/2023 2:50 PM CDT 10/21/2023 3:04 PM CDT Remi Beckett MD LAB - CHEMISTRY ORDERABLES [address] [address], [place] [phone] documented in this encounter Visit Diagnoses Diagnosis Malignant tumor of thyroid gland (HCC)- Primary Malignant neoplasm of thyroid gland documented in this encounter Care Teams Back Order Clerk Relationship Specialty Start Date End Date Yaya Villatoro MD [address] [phone] PCP - General Internal Medicine 05/04/23 Joseph Manzanares MD [address] [place] [address] Internal Medicine 04/21/23 documented as of this encounter
--- OUTSIDE RECORDS SUMMARY | 2024-07-23 07:08 | XMS_ITS | Encounter Summary ---
Author Organization [facility] Health Address [address] [facility] [place] [address] Care Team Providers Care Drywall Metal Stud Worker Name Role Phone Joseph Manzanares MD Unavailable Yaya Villatoro MD Primary Care Provider +1- [phone] Encounter Details Date Type Department Care Team (Late st Contact Info) Description 10/28/2023 Orders Only [facility] ONC [facility] [place] [address] Marcio Mcintosh MD [facility] [place], [place] [phone] Social History Tobacco Use Types Packs/Day Years [...] Date Recorded PHQ2 TOTAL SCORE 1 11/25/2022 [facility] of Occupat ional Health - Occupational [...] st Contact Info) Description 07/25/2024 10:00 AM MICA BUILDER Office Visit [facility] - Endocrinology [address] [place] [phone] Yosi Bustamante MD [address] [place] [address] 2L [place] [address] 07/26/2024 10:00 AM MICA BUILDER Appointment [facility] [address] [place] [phone] Neri Delgado MD [address] [place] [address] 07/26/2024 10:00 AM MICA BUILDER Office Visit [facility] - ENT [address] [place] [phone] Myra Farmer, POLISHING MACHINE TENDER [address] [place] [address] 2L [place] [address] 07/26/2024 11:15 AM MICA BUILDER Office Visit [facility] - ENT [address] [place] [phone] Neri Delgado MD [address] [place] [address] 08/02/2024 2:20 PM MICA BUILDER Appointment [facility] [address] [place] [address] 08/02/2024 3:00 PM MICA BUILDER Office Visit [facility] - Hematology/Oncology [address] [place] [phone] Remi Beckett MD [address] [place] [phone] 08/18/2024 1:45 PM MICA BUILDER Office Visit [facility] - ENT [address] [place] [phone] Neri Delgado MD [address] [place] [address] documented as of this encounter Visit Diagnoses Not on filedocumented in this encounter Care Teams Drywall Metal Stud Worker Relationship Specialty Start Date End Date Yaya Villatoro MD [address] [phone] PCP - General Internal Medicine 05/04/23 Joseph Manzanares MD [address] [place] [phone] Internal Medicine 04/21/23 documented as of this encounter
--- OUTSIDE RECORDS SUMMARY | 2024-07-23 07:08 | XMS_ITS | Encounter Summary ---
Author Organization [facility] Health Address [address] [facility] [place] [address] Care Team Providers Care Tearer Press Clipping Name Role Phone Joseph Manzanares MD Unavailable Yaya Villatoro MD Primary Care Provider +1- [phone] Encounter Details Date Type Department Care Team (Latest Contact Info) Description 11/04/2023 Travel Social History Tobacco Use Types Packs/Day [...] st Contact Info) Description 07/25/2024 10:00 AM GROCERY MANAGER Office Visit [facility] - Endocrinology [address] [place] [phone] Yosi Bustamante MD [address] [place] [address] 2L [place] [address] 07/26/2024 10:00 AM GROCERY MANAGER Appointment [facility] [address] [place] [phone] Neri Delgado MD [address] [place] [address] 07/26/2024 10:00 AM GROCERY MANAGER Office Visit [facility] - ENT [address] [place] [phone] Myra Farmer, BEADWORKER [address] [place] [address] 2L [place] [phone] 07/26/2024 11:15 AM GROCERY MANAGER Office Visit [facility] - ENT [address] [place] [phone] Neri Delgado MD [address] [place] [address] 08/02/2024 2:20 PM GROCERY MANAGER Appointment [facility] [address] [place] [address] 08/02/2024 3:00 PM GROCERY MANAGER Office Visit [facility] - Hematology/Oncology [address] [place] [phone] Remi Beckett MD [address] [place] [phone] 08/18/2024 1:45 PM GROCERY MANAGER Office Visit [facility] - ENT [address] [place] [phone] Neri Delgado MD [address] [place] [address] documented as of this encounter Visit Diagnoses Not on filedocumented in this encounter Care Teams Tearer Press Clipping Relationship Specialty Start Date End Date Yaya Villatoro MD [address] [phone] PCP - General Internal Medicine 05/04/23 Joseph Manzanares MD [address] [place] [phone] Internal Medicine 04/21/23 documented as of this encounter
--- OUTSIDE RECORDS SUMMARY | 2024-07-23 07:08 | XMS_ITS | Encounter Summary ---
Author Organization [facility] Health Address [address] [facility] [place] [address] Care Team Providers Care Software Developer Manager Name Role Phone Joseph Manzanares MD Unavailable Yaya Villatoro MD Primary Care Provider +1- [phone] Reason for Visit * Reason Onset Date Comments Fever 12/02/2023 cough Cough 12/02/2023 Sore Throat 12/02/2023 Encounter Details Date Type Department Care Team (Late st Contact Info) Description 12/02/2023 Telephone [facility] - Hematology/Oncology [address] [place] [phone] Josefina Ribeiro RN Fever (cough); Cough; Sore Throat Social History Tobacco Use Types Packs/Day Years [...] Date Recorded PHQ2 TOTAL SCORE 1 11/25/2022 [facility] of Occupat ional Health - [...] encounter Miscellaneous Notes * Telephone Encounter - Josefina Ribeiro RN - 12/02/2023 12:10 PM CDT Call received from pt wanting to reschedule OV today at 1:[address] Beckett due to waking up this morning with a fever of 100, cough (clear sputum), wheezing, sore throat, and shortness of breath.Denies N/V/D/C and is able to eat and drink with no difficulty. Pt advised to go to the urgent careor ED for swab for influenza and covid. Pt refuses to go and states she has covid tests at home and I will do one and let you know. This nurse instructed pt to call us for any worsening of symptoms. Verbalized understanding. Dr. Beckett aware of situation. Pt will call to reschedule OV. documented in this encounter Plan of Treatment Upcoming Encounters Date Type Department Care Team (Late st Contact Info) Description 07/25/2024 10:00 AM RESIDENTIAL CARPET INSTALLER Office Visit [facility] - Endocrinology [address] [place] [address], [place] [phone] Yosi Bustamante MD [address] [place] [address] [place] [address] 07/26/2024 10:00 AM RESIDENTIAL CARPET INSTALLER Appointment [facility] [address] [place] [phone] Neri Delgado MD [address] [place] [address] 07/26/2024 10:00 AM RESIDENTIAL CARPET INSTALLER Office Visit [facility] - ENT [address] [place] [phone] Myra Farmer, AUTOMOBILE ACCESSORIES SALESPERSON [address] [place] [address] [place] [phone] 07/26/2024 11:15 AM RESIDENTIAL CARPET INSTALLER Office Visit [facility] - ENT [address] [place] [phone] Neri Delgado MD [address] [place] [address] 08/02/2024 2:20 PM RESIDENTIAL CARPET INSTALLER Appointment [facility] [address] [place] [address] 08/02/2024 3:00 PM RESIDENTIAL CARPET INSTALLER Office Visit [facility] - Hematology/Oncology [address] [place] [phone] Remi Beckett MD [address] [place] [phone] 08/18/2024 1:45 PM RESIDENTIAL CARPET INSTALLER Office Visit [facility] - ENT [address] [place] [phone] Neri Delgado MD [address] [place] [address] documented as of this encounter Visit Diagnoses Not on filedocumented in this encounter Care Teams Software Developer Manager Relationship Specialty Start Date End Date Yaya Villatoro MD [address] [place] [phone] PCP - General Internal Medicine 05/04/23 Joseph Manzanares MD [address] [place] [phone] Internal Medicine 04/21/23 documented as of this encounter
--- OUTSIDE RECORDS SUMMARY | 2024-07-23 07:08 | XMS_ITS | Encounter Summary ---
Author Organization [facility] Health Address [address] [facility] [place] [address] Care Team Providers Care Steel Estimator Name Role Phone Joseph Manzanares MD Unavailable Yaya Villatoro MD Primary Care Provider +1- [phone] Reason for Visit * Reason Onset Date Comments General 10/28/2023 Encounter Details Date Type Department Care Team (Late st Contact Info) Description 10/28/2023 Telephone [facility] ONC [address] [place] [address] Alize French, OJSY General Social History Tobacco Use Types Packs/Day Years [...] SCORE 1 11/25/2022 [facility] - Occupational Stress Questionnaire Answer Date Recorded [...] Telephone Encounter - Alize French RN - 10/28/2023 3:59 PM CDT Spoke with the patient per Cit[employer] message from Andria FERRIS, informed Dr Mcintosh is prescribing an antifungal agent. The patient requested the prescription be sent to [facility] pharmacy. The patient reported going to the dentist and being prescribed Augmentin for gum/jaw abscess. Dr. Mcintosh informed. documented in this encounter Plan of Treatment Upcoming Encounters Date Type Department Care Team (Late st Contact Info) Description 07/25/2024 10:00 AM LINING CUTTER Office Visit [facility] - Endocrinology [address] [place] [phone] Yosi Bustamante MD [address] [place] [address] 2L [place] [address] 07/26/2024 10:00 AM LINING CUTTER Appointment [facility] [address] [place] [phone] Neri Delgado MD [address] [place] [address] 07/26/2024 10:00 AM LINING CUTTER Office Visit [facility] - ENT [address] [place] [phone] Myra Farmer, GROUNDS WORKER [address] [place] [address] 2L [place] [phone] 07/26/2024 11:15 AM LINING CUTTER Office Visit [facility] - ENT [address] [place] [phone] Neri Delgado MD [address] [place] [address] 08/02/2024 2:20 PM LINING CUTTER Appointment [facility] [address] [place] [address] 08/02/2024 3:00 PM LINING CUTTER Office Visit [facility] - Hematology/Oncology [address] [place] [phone] Remi Beckett MD [address] [place] [phone] 08/18/2024 1:45 PM LINING CUTTER Office Visit [facility] - ENT [address] [place] [phone] Neri Delgado MD [address] [place] [address] documented as of this encounter Visit Diagnoses Not on filedocumented in this encounter Care Teams Steel Estimator Relationship Specialty Start Date End Date Yaya Villatoro MD [address] [place] [phone] PCP - General Internal Medicine 05/04/23 Joseph Manzanares MD [address] [place] [phone] Internal Medicine 04/21/23 documented as of this encounter
--- OUTSIDE RECORDS SUMMARY | 2024-07-23 07:08 | XMS_ITS | Encounter Summary ---
Author Organization [facility] Health Address [address] [place] [address] Care Team Providers Care Assembly Adjuster Name Role Phone Joseph Manzanares MD Unavailable Yaya Villatoro MD Primary Care Provider [phone] Reason for Visit * Reason Onset Date Comments General 10/29/2023 Encounter Details Date Type Department Care Team (Late st Contact Info) Description 10/29/[address] [facility] [address] [place] [address] Alize French, JOSY General Social History Tobacco Use Types Packs/Day [...] Date Recorded PHQ2 TOTAL SCORE 1 11/25/2022 [facility] - Occupational Stress Questionnaire Answer Date [...] to sleep or slept in a senior living (including now)? No 10/02/2022 Sex and Gender [...] Telephone Encounter - Alize French RN - 10/29/2023 10:05 AM CDT The patient initially called r/t [facility] pharmacy not being able to process prescription. The patient was called back, informed [facility] could not process the prescription r/t the prescription was originally e-prescribed at [facility], they had process the prescription, and that the prescription is now available at [facility] pharmacy. The patient inquired if she could go to the hospital r/t her increased throat pain. Informed the patient, it is her decision to go to the hospital but reinforce the purpose of the prescription and of her ability to take her pain medication. She was informed of the ability to assess the effectiveness of the medications first prior to going to the hospital but that it was ultimately her decision. documented in this encounter Plan of Treatment Upcoming Encounters Date Type Department Care Team (Late st Contact Info) Description 07/25/2024 10:00 AM LOZENGE MAKER Office Visit [facility] - Endocrinology [address] [place] [phone] Yosi Bustamante MD [address] [place] [address] [place] [address] 07/26/2024 10:00 AM LOZENGE MAKER Appointment [facility] [address] [place] [phone] Neri Delgado MD [address] [place] [phone] 07/26/2024 10:00 AM LOZENGE MAKER Office Visit [facility] - ENT [address] [place] [phone] Myra Farmer, RECYCLING ASSISTANT [address] [place] [address] [address] [place] [phone] 07/26/2024 11:15 AM LOZENGE MAKER Office Visit [facility] - ENT [address] [place] [phone] Neri Delgado MD [address] [place] [phone] 08/02/2024 2:20 PM LOZENGE MAKER Appointment [facility] [address] [place] [phone] 08/02/2024 3:00 PM LOZENGE MAKER Office Visit [facility] - Hematology/Oncology [address] [place] [phone] Remi Beckett MD [address] [place] [phone] 08/18/2024 1:45 PM LOZENGE MAKER Office Visit [facility] [address] [place] [phone] Neri Delgado MD [address] [place] [phone] documented as of this encounter Visit Diagnoses Not on filedocumented in this encounter Care Teams Assembly Adjuster Relationship Specialty Start Date End Date Yaya Villatoro MD [address] [place] [phone] PCP - General Internal Medicine 05/04/23 Joseph Manzanares MD [address] [place] [phone] Internal Medicine 04/21/23 documented as of this encounter
--- OUTSIDE RECORDS SUMMARY | 2024-07-23 07:08 | XMS_ITS | Encounter Summary ---
Author Organization [facility] Address [address] [facility] [place] [address] Care Team Providers Care Mental Retardation Aide Name Role Phone Joseph Manzanares MD Unavailable Yaya Villatoro MD Primary Care Provider [phone] Reason for Referral * Evaluate & Treat (Routine) - Closed Specialty Diagnoses / Procedures Referred By Contac t Referred To Contact Neurology Diagnoses Motor skills disorder Remi Beckett MD [address] [place] [address] Sandra Mckeon MD [address] [address] Referral ID Status Reason Start Date Expiration Date V isits Requested Visits Authorized [id number] Closed Specialty Services Required 11/04/2023 11/03/2024 1 1 Reason for Visit * Reason Comments Follow-up Encounter Details Date Type Department Care Team (Latest Contact Info) Description 11/04/2023 11:00 AM CDT Office Visit [facility] - Hematology/Oncology [address] [place] [address] Remi Beckett MD [address] [place] [address] Malignant tumor of thyroid gland (HCC) (Primary Dx); Motor skills disorder; Encounter for antineoplastic chemotherapy; Cancer, metastatic to [...] Date Recorded PHQ2 TOTAL SCORE 1 11/25/2022 [facility] [place] of Occupat ional Health - Occupational Stress [...] Sign Reading Time Taken Comments Blood Pressure 126/81 11/04/2023 11:13 AM CDT Pulse 82 11/04/2023 11:13 AM CDT Temperature 36.9 ??C (98.5 ??F) 11/04/2023 11:13 AM C DT Respiratory Rate - - Oxygen Saturation 97% 11/04/2023 11:13 AM CDT Inhaled Oxygen Concentration - - Weight 61.7 kg (136 lb 1.6 oz) 11/04/2023 11:13 AM CDT Height - - Body Mass Index 26.03 10/21/2023 1:17 PM CDT documented in this [...] * Patient Instructions* Remi Beckett MD - 11/04/2023 11:47 AM CDT Thank you for entrusting your healthcare to the physicians and other specialists at the [facility]. [facility] [place] [facility]: For symptom management or prescription questions during business hours (Mon-Fri 8AM-4:30PM), pleasecall the triage nurse. Outside of business hours, please call the hematology/oncology doctor on-call. Hem/Onc Doctor On-Call (After hours, weekends, holidays): [phone], Dial [phone] ([employer]) and askfor the hematology/oncology fellow on-call and [...] Progress Notes * Remi Beckett MD - 11/04/2023 11:39 AM CDT HEMATOLOGY-ONCOLOGY CLINIC NOTE DATE OF VISIT: 11/04/2023 REASON FOR VISIT / CHIEF COMPLAINT: Thyroid cancer SUBJECTIVE: DIAGNOSIS: Papillary carcinoma of thyroid, stage III (pT4a pN1b cM0), diagnosed 08/19/2020, with locally recurrent/residual disease identified 02/05/2022, and distant recurrence in spine diagnosed 10/02/2022 TREATMENT HISTORY: - Total thyroidectomy??requiring sacrifice of right laryngeal nerve 08/19/2020, with central neck dissection, tracheal resection, esophageal muscle resection, bilateral modified radical neck dissection, and parathyroid implantation of the right deltoid - AWRD 157.6 mCi I-131, 03/19/2021 - Excision of right central neck mass, 02/05/2022 - SBRT to cervical spine, 2400 cGy in 2 fractions, 09/18/2022 & 09/21/2022 - C2-T2 fusion with laminectomy for partial resection of extramedullary tumor from C3-C7, 10/02/2022 - Palliative RT to C/T spine, 3,000 cGy in 5 fractions, 10/18/2023 to 10/22/2023 ?? ONCOLOGIC HISTORY: --03/07/2020: US thyroid showed right [...] follicular neoplasm (TBSRTC category IV). --08/19/2020: Total thyroidectomy??requiring sacrifice of right laryngeal nerve, with central neck dissection, tracheal resection, esophageal muscle resection, bilateral modified radical neck dissection, and parathyroid implantation of the right deltoid (Dr. Comer). Pathology: Papillary thyroid carcinoma involving both right and left lobes with greatest dimension 3.2 cm (multifocal papillary thyroid carcinoma with follicular architecture in the left lobe; papillary thyroid carcinoma with tall cell features and frequent follicular architecture with JADON in [...] CK20. NGS: PD-L1 TPS<1% and CPS 10, awaiting full report. F/U MRI cervical spine 12/24/2022 showed postop [...] free T4 1.4. --10/2023: Discussed with her brick shader Dr. Bustamante. She is not a good candidate for repeatRAI, which also does not have good bone/COTTAGE ATTENDANT penetration. Hence decided to initiate lenvatinib 24 mgorally once daily. INTERVAL HISTORY: She presents to the clinic today for follow-up. States she has done well in the recent past. Has been evaluated by dentist with 3 tooth extractions. Denies new lumps/bumps, night sweats, weight loss,nausea, vomiting or diarrhea. Appetite is good. Ambulating well. Past Medical History: Diagnosis Date ??? Anxiety [...] DIRECT LARYNGOSCOPY WITH BIOPSY ??? Polypectomy cervical Social History Socioeconomic History ??? Marital status: Tobacco Use ??? Smoking status: Some Days Packs/day: 0.25 Years: 40.00 Additional pack years: 0.00 Total pack years: 10.00 Types: Cigarettes Start date: 07/22/1973 ??? Smokeless tobacco: Current ??? Tobacco comments: 1-2 cigarettes per day current smoker Vaping Use ??? Vaping Use: Never used Substance and Sexual Activity ??? Alcohol use: No ??? Drug use: Yes Frequency: 1.0 times per week Types: Marijuana Comment: a few puffs from a pinch hitter some days 10/01 last ??? Sexual activity: Yes Partners: Male Social History Narrative Lives with , also current tobacco user, has COPD. 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 Other Mother xochilt; Status: Alive ??? Diabetes Mother ??? Alcohol abuse Father unknown since age 10 Status: ??? Anxiety Disorder Sister Status: Alive ??? Depression Sister ??? Other Sister xochilt ??? Arthritis Sister ??? Diabetes Sister ??? Alcohol abuse Daughter Status: Alive ??? Drug Abuse Daughter ??? Learning Disability Son Status: Alive ??? Gout Brother step Status: Alive ??? Diabetes Brother step Status: Alive ??? Anxiety Disorder Sister Status: Alive ??? Depression Sister ??? Hypertension Sister ??? Alcohol abuse Sister ??? Diabetes Sister half Status: Alive ??? None Known Sister Status: Alive ??? Thyroid Disease Neg Hx Current Outpatient Medications Medication Sig ??? albuterol [...] daily (Patient not taking: Reported on 11/04/2023) ??? cyclobenzaprine (Flexeril) 5 MG tablet Take 1 (one) tablet by mouth 3 times daily as needed ??? denosumab (Prolia) 60 MG/ML SC injection Inject 1 mL subcutaneously Every 180 days ??? famotidine (PEPCID) 20 MG tablet Take 1 (one) tablet by mouth 2 times daily as needed ??? fluticasone propionate (Flonase) 50 MCG/ACT nasal spray SPRAY 2 SPRAYS INTO EACH NOSTRIL EVERY DAY ??? gabapentin (Neurontin) 300 MG capsule Take 1 (one) capsule by mouth 3 times daily ??? hydrOXYzine HCl (Atarax) 25 MG tablet Take 1 (one) tablet to 2 (two) tablets by mouth as needed ??? ibuprofen (Motrin) 200 MG tablet Take 4 (four) tablets by mouth 2 times daily ??? levothyroxine (Synthroid) 112 MCG tablet Take 1 (one) tablet by mouth daily before breakfast Reasons: Cancer of Thyroid, Underactive Thyroid ??? naloxone HCl (Narcan) 4 MG/0.1ML nasal spray [place] 1 (one) spray into the nose as [...] Allergies Allergen Reactions ??? Kiwi Extract Anaphylaxis ONCOLOGIC DETAILS: Cancer Staging [...] date: -- Active Treatment Days for Brisa Hogan (until 11/10/2023) There are no remaining days before 11/10/2023. REVIEW OF SYSTEMS: A 10 point review of systems was performed and negative except as listed in the history above. OBJECTIVE: PHYSICAL EXAM: Vitals: BP 126/81 Pulse 82 Temp 98.5 ??F (36.9 ??C) (Oral) Wt 61.7 kg (136 lb 1.6 oz) SpO2 97% Wt Readings from Last 3 Encounters: 11/04/23 61.7 kg (136 lb 1.6 oz) 10/25/23 63 kg (139 lb) 10/21/23 64.3 kg (141 lb 11.2 oz) General appearance: Comfortable, not [...] of disease LABS: Recent Labs Component Name 10/21/23 1450 10/07/22 0012 10/05/22 2234 10/05/22 0436 WBC 7.6 8.1 8.9 9.3 RBC 4.83 3.03* 3.18* 3.32* HGB 13.7 9.2* 9.7* 10.2* HCT 41.1 27.3* 29.2* 30.5* MCV 85.1 90.1 91.8 91.9 MCHC 33.3 33.7 33.2 33.4 PLTCOUNT 290 263 239 239 NEUTPCT 68.6 59.0 67.4 68.2 LYMPHPCT 19.8 - - - NEUTABS - 4.75 6.03 6.32 LYMPHABS 1.51 - - - BASOABS 0.03 - - - Recent Labs Component Name 10/25/23 1445 10/21/23 1450 09/09/23 1343 12/24/22 1059 10/07/22 0012 10/05/22 2234 10/05/22 0436 07/24/20 1427 03/07/20 1519 POTASSIUM 3.8 3.6 3.7 - 3.8 3.7 3.7 - 3.9 CO2 27 22 24 - 25 25 25 - 33* BUN 10 14 15 - 15 19 10 - 13 CREATININE 0.81 0.80 0.80 - 0.56 0.53* 0.59 - 0.8 EGFR 81* 82* 82* - >90 >90 >90 - >60 GLUCOSE 88 122* 103 - 92 118* 90 - 57* CALCIUM 8.8 8.8 8.9 - 9.0 8.6 8.3* - 8.8 MAGNESIUM - - - - 1.7 1.6 1.7 - - PHOS 4.7 - 4.7 - 5.3* 4.6 3.6 - - ALT - 15 - - - - - - 26 AST - 16 - - - - - - 23 ALKPHOS - 85 - - - - - - 94 - = values in this interval not displayed. RADIOLOGY: MRI brain 11/05/2023 IMPRESSION: 1. No evidence of brain metastases. 2. 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 ASSESSMENT: Ms. Brisa Hogan is a very pleasant 63 year old female who was diagnosed with stage III papillarycarcinoma of thyroid in 08/2020 when she underwent [...] in 10/2023. She presents today for follow-up. ?? # Papillary carcinoma of thyroid, stage III (pT4a pN1b cM0), diagnosed 08/19/2020, with locally recurrent/residual disease identified 02/05/2022, and distant recurrence in spine diagnosed 10/02/2022 - Total thyroidectomy??requiring sacrifice of right laryngeal nerve 08/19/2020, with [...] Comorbidities: Hypertension, hyperlipidemia, GERD, psoriasis?, anxiety/depression. PLAN: Awaiting full NGS report. Okay to initiate lenvatinib (24 mg orally once daily) whenever she receives the medication. She has obtained dental clearance for BMA, and will receive it through endocrinology. ?? Monitoring for lenvatinib: - LFTs at baseline, every 2 weeks for 2 months, and at least monthly thereafter. - Renal function and electrolytes. - Serum calcium. - Thyroid function (TSH levels) at baseline and monthly or as clinically indicated. - Monitor for proteinuria at baseline and. Periodically during treatment. Blood pressure. - Dental exam. - EKG (QTc 462 on 11/01/2023). - Monitor for symptoms/signs of cardiac dysfunction, arterial thrombosis,, fistula formation, GI perforation, bleeding/hemorrhage, diarrhea, dehydration, wound healing complications. ?? Referral to neurology for hand tremors. RTC in 2 weeks. She will call us with questions/concerns in the meantime. 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 She is currently going to rehab to get stronger. She also experiences pain, the pain is in the neck and pain between her shoulders, intermittent, sharp, moderate to severe, causes her to wake up at night. She has started using Rule which brings the pain down to 0/10, [...] bone (HCC) Papillary carcinoma of thyroid (HCC) PAST MEDICAL HISTORY: Past Medical History: [...] ??? Snoring ??? SOB (shortness of breath) 2/2 thyroid mass ??? Thyroid cancer (HCC) 10/14/2020 [...] ??? Polypectomy cervical ONCOLOGIC DETAILS: Cancer Staging Papillary carcinoma of [...] date: -- Active Treatment Days for Brisa Hogan (until 11/05/2023) There are no remaining days before 11/05/2023. SOCIAL HISTORY: Lives by herself, has two [...] Inject 1 mL subcutaneously Every 180 days ??? famotidine (PEPCID) 20 MG tablet Take 1 (one) tablet by mouth 2 times daily as needed ??? fluconazole (Diflucan) 100 MG tablet Take 1 (one) tablet by mouth once daily ??? fluticasone propionate (Flonase) 50 MCG/ACT nasal spray SPRAY 2 SPRAYS INTO EACH NOSTRIL EVERY DAY ??? gabapentin (Neurontin) 300 MG capsule Take 1 (one) capsule by mouth 3 times daily ??? HYDROcodone-acetaminophen (Rule) 5-325 MG tablet Take 1 (one) tablet by mouth every 8 hours asneeded for Pain ??? hydrOXYzine HCl (Atarax) 25 MG tablet Take 1 (one) tablet to 2 (two) tablets by mouth as needed ??? levothyroxine (Synthroid) 112 MCG tablet Take 1 (one) tablet by mouth daily before breakfast Reasons: Cancer of Thyroid, Underactive Thyroid ??? naloxone HCl (Narcan) 4 MG/0.1ML nasal spray [place] 1 (one) spray into the nose as [...] history above. OBJECTIVE: PHYSICAL EXAM: Vitals: BP 126/81 Pulse 82 Temp 98.5 ??F (36.9 ??C) (Oral) Wt 61.7 kg (136 lb 1.6 oz) SpO2 97% Wt Readings from Last 3 Encounters: 11/04/23 61.7 kg (136 lb 1.6 oz) 10/25/23 63 kg (139 lb) 10/21/23 64.3 kg (141 lb 11.2 oz) General appearance: Comfortable, not [...] of disease LABS: Recent Labs Component Name 10/21/23 1450 10/07/22 0012 10/05/22 2234 10/05/22 0436 WBC 7.6 8.1 8.9 9.3 RBC 4.83 3.03* 3.18* 3.32* HGB 13.7 9.2* 9.7* 10.2* HCT 41.1 27.3* 29.2* 30.5* MCV 85.1 90.1 91.8 91.9 MCHC 33.3 33.7 33.2 33.4 PLTCOUNT 290 263 239 239 NEUTPCT 68.6 59.0 67.4 68.2 LYMPHPCT 19.8 - - - NEUTABS - 4.75 6.03 6.32 LYMPHABS 1.51 - - - BASOABS 0.03 - - - Recent Labs Component Name 10/25/23 1445 10/21/23 1450 09/09/23 1343 12/24/22 1059 10/07/22 0012 10/05/22 2234 10/05/22 0436 07/24/20 1427 03/07/20 1519 POTASSIUM 3.8 3.6 3.7 - 3.8 3.7 3.7 - 3.9 CO2 27 22 24 - 25 25 25 - 33* BUN 10 14 15 - 15 19 10 - 13 CREATININE 0.81 0.80 0.80 - 0.56 0.53* 0.59 - 0.8 EGFR 81* 82* 82* - >90 >90 >90 - >60 GLUCOSE 88 122* 103 - 92 118* 90 - 57* CALCIUM 8.8 8.8 8.9 - 9.0 8.6 8.3* - 8.8 MAGNESIUM - - - - 1.7 1.6 1.7 - - PHOS 4.7 - 4.7 - 5.3* 4.6 3.6 - - ALT - 15 - - - - - - 26 AST - 16 - - - - - - 23 ALKPHOS - 85 - - - - - - 94 - = values in this interval not displayed. RADIOLOGY: PET CT WHOLE BODY Result Date: 10/06/2023 PROCEDURE: PET CT WHOLE BODY, DATE/TIME OF EXAM: 10/06/2023 3:39 PM, LOCATION [facility] INDICATION: E89.0: Postoperative hypothyroidism C73: Thyroid [...] inguinal nodes. Musculoskeletal: Postoperative changes of a [id number] instrumented spinal fusion. There are multifocal areas [...] Report dictated by Froylan Ny DO (radiology receptionist). > Dictated by Froylan Ny DO (Aboriginal Liaison Officer) 10/06/2023 3:25 PM ITiesha DO have personally reviewed and interpreted this examinati on/study. > Interpreting Provider: Tiesha Sy DO on 10/06/2023 5:11 PM MRI CERVICAL SPINE WWO CONT Result Date: 10/01/2023 PROCEDURE: MRI CERVICAL SPINE WWO CONT, DATE/TIME OF EXAM: 10/01/2023 10:44 AM, LOCATION [facility] INDICATION: C79.51: Cancer, metastatic to bone [...] and the response rate among patients with [id number] thyroid cancer (SELECT trial). The median progression-free [...] directed treatments Will get in touch her brick shader Blood pressure monitoring at home for the first two weeks RTC in two weeks Plan discussed with Dr. Beckett documented in this encounter Plan of Treatment Upcoming Encounters Date Type Department Care Team (Late st Contact Info) Description 07/25/2024 10:00 AM HOUSEPERSON Office Visit [facility] - Endocrinology [address] [place] [address], [facility] [place] [address] Yosi Bustamante MD [address] [place] [address] [place] [address] 07/26/2024 10:00 AM HOUSEPERSON Appointment [facility] [address] [place] [address] Neri Delgado MD [address] [place] [phone] 07/26/2024 10:00 AM HOUSEPERSON Office Visit [facility] - ENT [address] [place] [phone] Myra Farmer, OPERATIONS RECRUITER [address] [place] [address] [place] [phone] 07/26/2024 11:15 AM HOUSEPERSON Office Visit [facility] - ENT [address] [place] [phone] Neri Delgado MD [address] [place] [phone] 08/02/2024 2:20 PM HOUSEPERSON Appointment [facility] [address] [place] [phone] 08/02/2024 3:00 PM HOUSEPERSON Office Visit [facility] - Hematology/Oncology [address] [place] [phone] Remi Beckett MD [address] [place] [phone] 08/18/2024 1:45 PM HOUSEPERSON Office Visit [facility] - ENT [address] [place] [phone] Neri Delgado MD [address] [place] [phone] Scheduled Referrals Name Type Priority Associated Diagnoses Order Schedule Ref to Neurology - [facility] Outpatient Referral Routine Motor skills disorder 1 Occurrences starting 11/04/2023 until 11/03/2024 documented as of this encounter Results * (ABNORMAL) COMPREHENSIVE METABOLIC PANEL (12/10/2023 10:54 AM [facility]) BUN 30(H) 7 - 26 mg/dL 12/10/2023 11:26 AM [facility] Creatinine 0.77 0.56 - 0.96 mg/dL 12/10/2023 11:26 AM [facility] Sodium 139 136 - 145 mmol/L 12/10/2023 11:26 AM [facility] Potassium 4.3 3.5 - 4.5 mmol/L 12/10/2023 11:26 AM [facility] Chloride 108(H) 98 - 107 mmol/L 12/10/2023 11:26 AM [facility] CO2 21(L) 22 - 29 mmol/L 12/10/2023 11:26 AM [facility] Glucose 101 70 - 115 mg/dL 12/10/2023 11:26 AM [facility] Calcium 9.3 8.4 - 10.2 mg/dL 12/10/2023 11:26 AM [facility] Protein Total 7.8 6.0 - 8.3 g/dL 12/10/2023 11:26 AM [facility] Albumin 4.1 3.4 - 5.0 g/dL 12/10/2023 11:26 AM [facility] Bilirubin Total 0.3 0.2 - 1.2 mg/dL 12/10/2023 11:26 AM [facility] Alkaline Phosphatase 83 40 - 150 U/L 12/10/2023 11:26 AM [facility] ALT 17 5 - 55 U/L 12/10/2023 11:26 AM [facility] AST 17 5 - 34 U/L 12/10/2023 11:26 AM [facility] Anion Gap 10 6 - 16 12/10/2023 11:26 AM [facility] BUN/Creatinine Ratio 39(H) 7 - 23 12/10/2023 11:26 AM [facility] Osmolality Calculated 294 275 - 295 mOsm/kg 12/10/2023 11:26 AM [facility] Albumin/Globulin Ratio 1.1 1.1 - 2.3 12/10/2023 11:26 AM [facility] eGFR by CKD-EPI 86(L) >=90 mL/min/1.7 3 m2 12/10/2023 11:26 AM [facility] Blood BLOOD SPECIMEN / Unknown Lab Venipuncture / Unknown 12/10/2023 10:54 AM CDT 12/10/2023 10:56 AM CDT Remi Beckett MD LAB - CHEMISTRY ORDERABLES [facility] [address] [place] [address], [facility] [phone] * (ABNORMAL) CBC WITH DIFFERENTIAL (12/10/2023 10:54 AM T) WBC 7.7 4.0 - 10.7 x10E9/L 12/10/2023 10:59 AM [facility] RBC Count 5.36(H) 3.90 - 5.20 x10E12/L 12/10/2023 10:59 AM [facility] Hemoglobin 14.9 11.9 - 15.8 g/dL 12/10/2023 10:59 AM [facility] Hematocrit 45.1 34.8 - 46.1 % 12/10/2023 10:59 AM [facility] MCV 84.1 80.0 - 98.0 fL 12/10/2023 10:59 AM [facility] MCH 27.8 26.7 - 33.6 pg 12/10/2023 10:59 AM [facility] MCHC 33.0 31.7 - 36.3 g/dL 12/10/2023 10:59 AM [facility] RDW-CV 13.1 11.3 - 14.8 % 12/10/2023 10:59 AM [facility] Platelet Count 285 150 - 420 x10E9/L 12/10/2023 10:59 AM [facility] MPV 9.6 7.8 - 11.4 fL 12/10/2023 10:59 AM [facility] Neutrophil % 70.4 41.0 - 74.0 % 12/10/2023 10:59 AM [facility] Lymphocyte % 17.0 17.0 - 47.0 % 12/10/2023 10:59 AM [facility] Monocyte % 9.4 3.0 - 11.0 % 12/10/2023 10:59 AM [facility] Eosinophil % 2.2 0.0 - 7.0 % 12/10/2023 10:59 AM [facility] Basophil % 0.6 0.0 - 1.6 % 12/10/2023 10:59 AM [facility] Immature Granulocytes % 0.4 0.0 - 1.0 % 12/10/2023 10:59 AM [facility] Neutrophil Absolute 5.42 1.60 - 7.50 x10E9/L 12/10/2023 10:59 AM [facility] Lymphocyte Absolute 1.31 1.00 - 4.40 x10E9/L 12/10/2023 10:59 AM [facility] Monocyte Absolute 0.72 0.15 - 1.00 x10E9/L 12/10/2023 10:59 AM [facility] Eosinophil Absolute 0.17 0.00 - 0.60 x10E9/L 12/10/2023 10:59 AM [facility] Basophil Absolute 0.05 0.00 - 0.13 x10E9/L 12/10/2023 10:59 AM [facility] Blood BLOOD SPECIMEN / Unknown Lab Venipuncture / Unknown 12/10/2023 10:54 AM CDT 12/10/2023 10:56 AM T Remi Beckett MD LAB - HEMATOLOGY ORDERABLES [address] [address], [facility] [phone] documented in this encounter Visit Diagnoses Diagnosis Malignant tumor of thyroid gland (HCC)- Primary Malignant neoplasm of thyroid gland Motor skills disorder Developmental coordination disorder Encounter for antineoplastic chemotherapy Cancer, metastatic to bone (HCC) Secondary malignant neoplasm of bone and bone marrow documented in this encounter Care Teams Mental Retardation Aide Relationship Specialty Start Date End Date Yaya Villatoro MD [address] [phone] PCP - General Internal Medicine 05/04/23 Joseph Manzanares MD [address] [place] [address] Internal Medicine 04/21/23 documented as of this encounter
--- OUTSIDE RECORDS SUMMARY | 2024-07-23 07:08 | XMS_ITS | Encounter Summary ---
Author Organization [facility] Health Address [address] [place] [address] Care Team Providers Care Property Claims Manager Name Role Phone Joseph Manzanares MD Unavailable Yaya Villatoro MD Primary Care Provider +1- [phone] Reason for Visit * Radiology Services (Routine) - Closed Specialty Diagnoses / Procedures Referred By Contac t Referred To Contact MRI Diagnoses Cervical spine tumor Cancer, metastatic to bone (HCC) Papillary carcinoma of thyroid (HCC) Procedures MRI CERVICAL SPINE WWO CONT Marcio Mcintosh MD [address] [place] [address] [facility] [address] Mri [address] [place] [address] Referral ID Status Reason Start Date Expiration Date Visits Re quested Visits Authorized [id number] Closed 11/23/2023 02/21/2024 1 1 Encounter Details Date Type Department Care Team (Latest Contact Info) Description 11/23/2023 5:06 PM CDT - 11/23/2023 11:59 PM CDT Hospital Encounter [facility] MRI [address] [place] [phone] Marcio Mcintosh MD [address] [place] [address] Discharge Disposition: Home or Self [...] Date Recorded PHQ2 TOTAL SCORE 1 11/25/2022 [facility] - Occupational [...] No 10/02/2022 Housing Stability Vital Sign Answer Oil e Recorded In the last 12 months, [...] naloxone HCl (Narcan) 4 MG/0.1ML nasal spray [place] 1 (one) spray into the nose as [...] st Contact Info) Description 07/25/2024 10:00 AM FERRULER [facility] [address] [place] [phone] Yosi Bustamante MD [address] [place] [address] 2L [place] [address] 07/26/2024 10:00 AM FERRULER Appointment [facility] DIAGNOSTIC RAD [address] [place] [address] Neri Delgado MD [address] [place] [address] 07/26/2024 10:00 AM FERRULER [facility] ENT [address] [place] [phone] Myra Farmer, HAND BRIM IRONER [address] [place] [address] 2L [place] [phone] 07/26/2024 11:15 AM FERRULER Office Visit [facility] - ENT [address] [place] [phone] Neri Delgado MD [address] [place] [address] 08/02/2024 2:20 PM FERRULER Appointment [facility] [address] [place] [address] 08/02/2024 3:00 PM FERRULER Office Visit [facility] - Hematology/Oncology [address] [place] [phone] Remi Beckett MD [address] [place] [phone] 08/18/2024 1:45 PM FERRULER Office Visit [facility] - ENT [address] [place] [phone] Neri Delgado MD [address] [place] [address] documented as of this encounter Procedures Procedure Name Priority Date/Time Associated Diagnosis Comments MRI CERVICAL SPINE WWO CONT Routine 11/23/2023 5:43 PM CDT Cervical spine tumor Cancer, metastatic to bone (HCC) Papillary carcinoma of thyroid (HCC) documented in this encounter Results * MRI CERVICAL SPINE WWO CONT (11/23/2023 5:43 PM CDT) Anatomical Region Laterality Modality Spine Magnetic Resonan ce 11/29/2023 9:54 AM CDT Impressions 12/06/2023 10:40 AM CDT [...] recommended. Report dictated by Kendall Quiroz MD (president [place]). I, Toñito Lucia MD have personally reviewed and interpreted this examination/study. > Interpreting Provider: Toñito Lucia MD on 12/06/2023 10:40 AM Narrative 12/06/2023 [...] recommended. Report dictated by Kendall Quiroz MD (president [place]). I, Toñito Lucia MD have personally reviewed and interpreted this examination/study. > Interpreting Provider: Toñito Lucia MD on 12/06/2023 10:40 AM Marcio Mcintosh MD MR ORDERABLES documented in this encounter Visit Diagnoses Diagnosis Cervical spine tumor Neoplasm of unspecified nature [...] (Gadavist) injection Intravenous, CONTRAST ONCE, Starting on Wed11/23/23 at 1730, Until Wed11/24/23 at 0132 $ Given - Contrast 11/23/2023 5:31 PM CDT 6 mL documented in this encounter Care Teams Property Claims Manager Relationship Specialty Start Date End Date Yaya Villatoro MD [address] [phone] PCP - General Internal Medicine 05/04/23 Joseph Manzanares MD [address] [place] [phone] Internal Medicine 04/21/23 documented as of this encounter
--- OUTSIDE RECORDS SUMMARY | 2024-07-23 07:08 | XMS_ITS | Encounter Summary ---
Author Organization [facility] Health Address [address] [place] [address] Care Team Providers Care Mushroom Laborer Name Role Phone Joseph Manzanares MD Unavailable Yaya Villatoro MD Primary Care Provider [phone]- [phone] Encounter Details Date Type Department Care Team (Latest Contact Info) Description 11/23/2023 Travel Social History Tobacco Use Types Packs/Day [...] Date Recorded PHQ2 TOTAL SCORE 1 11/25/2022 [facility] - [...] st Contact Info) Description 07/25/2024 10:00 AM SENIOR PRODUCT INTEGRITY ENGINEER [facility] [address] [place] [phone] Yosi Bustamante MD [address] [place] [address] 2L [place] [address] 07/26/2024 10:00 AM SENIOR PRODUCT INTEGRITY ENGINEER Appointment [facility] DIAGNOSTIC RAD [address] [place] [address] Neri Delgado MD [address] [place] [address] 07/26/2024 10:00 AM SENIOR PRODUCT INTEGRITY ENGINEER Office Visit [facility] - ENT [address] [place] [phone] Myra Farmer, CRIMINAL DEFENSE ATTORNEY [address] [place] [address] 2L [place] [phone] 07/26/2024 11:15 AM SENIOR PRODUCT INTEGRITY ENGINEER Office Visit [facility] - ENT [address] [place] [phone] Neri Delgado MD [address] [place] [address] 08/02/2024 2:20 PM SENIOR PRODUCT INTEGRITY ENGINEER Appointment [facility] [address] [place] [address] 08/02/2024 3:00 PM SENIOR PRODUCT INTEGRITY ENGINEER Office Visit [facility] - Hematology/Oncology [address] [place] [phone] Remi Beckett MD [address] [place] [phone] 08/18/2024 1:45 PM SENIOR PRODUCT INTEGRITY ENGINEER Office Visit [facility] - ENT [address] [place] [address] Neri Delgado MD [address] [place] [phone] documented as of this encounter Visit Diagnoses Not on filedocumented in this encounter Care Teams Mushroom Laborer Relationship Specialty Start Date End Date Yaya Villatoro MD [address] [phone] PCP - General Internal Medicine 05/04/23 Joseph Manzanares MD [address] [place] [phone] Internal Medicine 04/21/23 documented as of this encounter
--- OUTSIDE RECORDS SUMMARY | 2024-07-23 07:08 | XMS_ITS | Encounter Summary ---
Author Organization [facility] Health Address [address] [place] [address] Care Team Providers Care Java Portal Developer Name Role Phone Joseph Manzanares MD Unavailable Yaya Villatoro MD Primary Care Provider [phone]- [phone] Reason for Visit * Radiology Services (Routine) - Closed Specialty Diagnoses / Procedures Referred By Contac t Referred To Contact Hematology-Oncology Diagnoses Malignant tumor of thyroid gland (HCC) Procedures MRI BRAIN WWO CONTRAST Remi Beckett MD [address] [place] [address] Referral ID Status Reason Start Date Expiration Date Visits Re quested Visits Authorized [id number] Closed 10/29/2023 11/27/2023 1 1 Encounter Details Date Type Department Care Team (Latest Contact Info) Description 11/05/2023 2:30 PM CDT - 11/05/2023 11:59 PM CDT Hospital Encounter [facility] MRI [address] [place] [phone] Remi Beckett MD [address] [place] [phone] Discharge Disposition: Home or Self [...] Date Recorded PHQ2 TOTAL SCORE 1 11/25/2022 [facility] - Occupational Stress [...] naloxone HCl (Narcan) 4 MG/0.1ML nasal spray [place] 1 (one) spray into the nose as [...] st Contact Info) Description 07/25/2024 10:00 AM LIVE SOURCE OPERATOR Office Visit [facility] - Endocrinology [address] [place] [phone] Yosi Bustamante MD [address] [place] [address] 2L [place] [address] 07/26/2024 10:00 AM LIVE SOURCE OPERATOR Appointment [facility] DIAGNOSTIC RAD [address] [place] [phone] Neri Delgado MD [address] [place] [address] 07/26/2024 10:00 AM LIVE SOURCE OPERATOR Office Visit [facility] - ENT [address] [place] [phone] Myra Farmer, DATABASE ADMINISTRATION MANAGER [address] [place] [address] 2L [place] [phone] 07/26/2024 11:15 AM LIVE SOURCE OPERATOR Office Visit [facility] - ENT [address] [place] [phone] Neri Delgado MD [address] [place] [address] 08/02/2024 2:20 PM LIVE SOURCE OPERATOR Appointment [facility] [address] [place] [phone] 08/02/2024 3:00 PM LIVE SOURCE OPERATOR Office Visit [facility] - Hematology/Oncology [address] [place] [phone] Remi Beckett MD [address] [place] [phone] 08/18/2024 1:45 PM LIVE SOURCE OPERATOR Office Visit [facility] - ENT [address] [place] [phone] Neri Delgado MD [address] [place] [phone] documented as of this encounter Procedures Procedure Name Priority Date/Time Associated Diagnosis Comments MRI BRAIN WWO CONTRAST Routine 11/05/2023 3:45 PM CDT Malignant tumor of thyroid gland [...] DATE/TIME OF EXAM: ??11/05/2023 3:45 PM, LOCATION ??[facility] INDICATION: C73: Malignant tumor of thyroid gland [...] CONTRAST, DATE/TIME OF EXAM: 11/05/2023 3:45PM, LOCATION [facility] INDICATION: C73: Malignant tumor of thyroid gland [...] 2:17 PM Remi Beckett MD MR ORDERABLES documented in this encounter Visit Diagnoses Diagnosis Malignant tumor of thyroid gland (HCC) Malignant neoplasm of thyroid gland documented in this encounter Administered Medications Inactive Administered Medications - up to 3 most recent administrations Medication Order MAR Action Action Date Dose Rate Site gadobutrol (Gadavist) injection Intravenous, CONTRAST ONCE, Starting on 11/05/23 at 1524, Until 11/06/23 at 0130 $ Given - Contrast 11/05/2023 3:24 PM CDT 6 mL documented in this encounter Care Teams Java Portal Developer Relationship Specialty Start Date End Date Yaya Villatoro MD [address] [facility] [address] [place] [address] PCP - General Internal Medicine 05/04/23 Joseph Manzanares MD [address] [place] [phone] Internal Medicine 04/21/23 documented as of this encounter
--- OUTSIDE RECORDS SUMMARY | 2024-07-23 07:09 | XMS_ITS | Encounter Summary ---
Author Organization [facility] Health Address [address] [place] [address] Care Team Providers Care Chuck Wagon Cook Name Role Phone Joseph Manzanares MD Primary Care Provider [phone] Dayday Tiana DO Unavailable [phone] Reason for Referral * Radiology Services (Routine) - Closed Specialty Diagnoses / Procedures Referred By Yuan robins Referred To Contact MRI Diagnoses Cancer, metastatic to bone (HCC) Cervical spine tumor Procedures MRI CERVICAL SPINE WWO CONT Marcio Mcintosh MD [facility] [place] [address] [facility] [address] [place] [phone] Referral ID Status Reason Start Date Expiration Date Visits Re quested Visits Authorized [id number] Closed 10/01/2023 12/30/2023 1 1 Encounter Details Date Type Department Care Team (Latest Contact Info) Description 03/25/2023 1:00 PM CDT - 03/25/2023 11:59 PM CDT Hospital Encounter [facility] ONC [facility] [place] [address] Marcio Mcintosh MD [facility] [place] [address] Discharge Disposition: Home or Self [...] Date Recorded PHQ2 TOTAL SCORE 1 11/25/2022 [facility] - Occupational [...] Sign Reading Time Taken Comments Blood Pressure 142/78 03/25/2023 1:20 PM CDT Pulse 81 03/25/2023 1:20 PM CDT Temperature 36.8 ??C (98.3 ??F) 03/25/2023 1:20 PM CD T Respiratory Rate 18 03/25/2023 1:20 PM CDT Oxygen Saturation 96% 03/25/2023 1:20 PM CDT Inhaled Oxygen Concentration - - Weight 64.9 kg (143 lb) 03/25/2023 1:20 PM CDT Height - - Body Mass Index 26.16 01/29/2023 3:14 PM CDT documented in this encounter Functional [...] Sig Dispensed Refills Start Date End Date buPROPion SR 12hr (Wellbutrin-SR) 100 MG tablet Take 1 (one) tablet by mouth 2 times daily 08/28/2022 celecoxib (CeleBREX) 200 MG capsuleIndications:Prima ry osteoarthritis of left hip Take 1 (one) capsule by mouth once daily 90 capsule 3 10/27/2022 cyclobenzaprine (Flexeril) 5 MG tablet Take 1 (one) tablet by mouth 3 times daily as needed 90 tablet 1 11/19/2022 famotidine (PEPCID) 20 MG tablet Take 1 (one) tablet by mouth 2 times daily as needed 05/27/2020 gabapentin (Neurontin) 300 MG capsuleIndications:Prima ry osteoarthritis of left hip Take 1 (one) capsule by mouth 3 times daily 90 capsule 5 11/19/2022 naloxone HCl (Narcan) 4 MG/0.1ML nasal spray [place] 1 (one) spray into the nose as [...] tablet by mouth at bedtime 06/25/2020 acetaminophen (TYLENOL) 500 MG tabletIndications:Pain Take 2 (two) tablets by mouth every 6 hours as needed Reasons: Pain 06/13/2023 atorvastatin (Lipitor) 40 MG tabletIndications:Hyperl ipidemia, unspecified hyperlipidemia type TAKE 1 TABLET BY MOUTH EVERYDAY AT BEDTIME 30 tablet 3 02/16/2023 04/21/2023 calcitriol (Rocaltrol) 0.5 MCG capsuleIndications:Posto perative hypothyroidism,Thyroid cancer (HCC),Hypocalcemia TAKE 1 CAPSULE BY MOUTH TWICE A DAY 60 capsule 11 02/22/2022 05/28/2023 HOFTBBL-LGMZNMONZ-HCQO PO Take by mouth once daily 06/13/2023 cetirizine (ZYRTEC) 10 MG tabletIndications:Allerg ic rhinitis, unspecified seasonality, unspecified trigger Take 1 (one) tablet by mouth once daily 30 tablet 5 11/11/2021 06/13/2023 clonazePAM (KLONOPIN) 0.5 MG tablet Take 1.5 (one and one-half) tablets by mouth once daily 10/29/2021 06/14/2023 cyclobenzaprine (Flexeril) 5 MG tablet Take by mouth every 8 hours 03/09/2023 10/11/2023 fish oil/omega-3 fatty acids (PROMEGA;CARDI-OMEGA 3) 1000 MG capsule Take 1 (one) capsule by mouth 3 times daily with meals 06/13/2023 fluticasone propionate (Flonase) 50 MCG/ACT nasal sprayIndications:Allergi c rhinitis, unspecified seasonality, unspecified trigger SPRAY 2 SPRAYS INTO EACH NOSTRIL EVERY DAY 48 g 02/22/2023 06/01/2023 HERJRW-JBXPLOMFA-BUN-C-H YAL PO Take 1 tablet by mouth 3 times daily 06/13/2023 levothyroxine (Synthroid) 112 MCG tabletIndications:Postop erative hypothyroidism TAKE 1 TABLET BY MOUTH EVERY DAY 90 tablet 4 07/06/2022 06/14/2023 Misc Natural Products (NEURIVA PO) Take 1 tablet by mouth 2 times daily 06/13/2023 vitamin E (TOCOPHERYL) 200 UNIT capsule Take 1 (one) capsule by mouth 3 times daily 06/13/2023 documented as of this encounter Progress Notes * Marcio Mcintosh MD - 03/25/2023 1:40 PM CDT Images from the original note were not included. Return Patient Visit Department of Radiation Oncology [facility] ENCOUNTER DATE: 03/25/2023 PATIENT IDENTIFICATION Brisa Hogan 1960 [employer] Chief Complaint: No chief complaint on file. Diagnosis: 1. Cancer, metastatic to bone (CMS/HCC) CC: Follow up Diagnosis: Metastatic thyroid cancer to C spine, ??stage TxNxM1, s/p?Resection of primary thyroid and RAIof 157.6mCi SBRT To Cervical spine s/p 2400cGy in 2 fractions ending on 09/21/2022 Referring MD: Kilnman:?Yosi Bustamante MD ENT Surgeon: ??Neri Delgado MD NeuroSurgeon:?MD Joseph Cui MD PAST DISEASE HISTORY: Brisa was found to have a right thyroid nodule an 2020. 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 ??Repeat biopsy of the right thyroid lobe on 1produced a diagnosis of follicular neoplasm??and she underwent a completion thyroidectomy and bilateral neck dissection on 08/19/2020. 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 ??Tumor broached??the inked surgical margins at??Superior and inferior tracheal margins. ??Tumor involved the tracheal mucosa. ??Negative surgical margin obtained on the left tracheal wall excision site. ??The right superior tracheal wall showed evidence of submucosal involvement by tumor. ??Metastatic carcinoma in 2 of 3 nodes from the central neck.. ??Metastatic carcinoma in 0/14 left from level 2A, 1/14 from left level 3, 2/13 from left level 4 and 5, 2/5 from right level 3, 2/22 from right level 2A, 1/12 from right level 4 and 5, with positive extranodal extension. ??Metastatic carcinoma was also noted in the epidural tissues from the recurrent right laryngeal nerve excision. ??Postoperatively patient received treatment with ablative??I 131 administration she received 157.6 mCi on 03/19/2021. ?? During endocrinology clinic visit on 12/08/2021, patient was noted to have a recurrent right anterior neck mass overlying the thyroid cartilage. ??PET imaging showed diffuse avidity in the left central neck with the prominent highly avid right neck nodule. ??Excisional biopsy of the right neck masswas accomplished on 02/05/2022. ??Pathology report confirmed recurrent papillary thyroid carcinoma infiltrating skeletal muscle. ??Plans were proceeding for her to receive additional radioactive I 131 treatment after thyroid hormone withdrawal. ??It does not appear that she received that additionaldose of radioactive I 131 treatment. ?? Patient later sustained a fall and developed bilateral shoulder pain and was diagnosed with partialtears in the left supraspinatus, infraspinatus, and subcapsular tendons. ??Steroid Dosepak helped relieve active inflammation.??Plan was to proceed with a left total shoulder replacement. ??During the interval she had progressive weakness and eventual loss of use of her left arm and hand. ??He continues to have pain in her neck radiating down left arm. ?? Further evaluation with whole-body thyroid scan on 08/19/2022 revealed focal uptake in the anterioraspect of the mid cervical spine is consistent with metastatic disease. ??Subsequent MRI of the cervical spine described metastatic osseous involvement of the left aspect of C5 and C6 vertebral body with tumor extension into the epidural space and left neural foramina from C4-5 to C6-7. ??There wasencasement/abutment of the tumor along the left vertebral artery and moderate spinal canal stenosis/compression. ?? She was evaluated by Dr. Gómez??who recommended surgical decompression and cervical spine stabilization??scheduled for 10/02/2022.?? She received SBRT to the Cervical Spine with 2400cGy in 2 fractions ending on 09/21/2022. She tolerated without event and was planned for future surgery. Brisa has underwent surgical stabiliation and decompression on 10/02/2022. She still has Limited use of the left arm. She has went to physical therapy for muscle strengthening. SUBJECTIVE/HPI: Ms. Brisa Hogan is a 62 year old female who returns for a follow up visit. Since our last visit, Brisa has felt no changes but regular sore shoulder on the left and notable limited ROM. She has cracking with her exercises and hopes a rotator cuff repair would help. She hasrepeatedly said she knows the difference of her neuropathy with the neck nerves compared to her shoulder cracking and is thinking about surgery. She has a friend present for review.. REVIEW OF SYSTEMS: GENERAL: Denies Headaches, nausea, vomiting PULMONARY: Denies cough or worsened shortness of breath NEUROLOGIC: Denies new neurologic deficit or weakness/loss of motion in arms or legs I have also reviewed the nursing assessment flowsheet below: Radiation Oncology Nursing Assessement 03/25/2023 Education: Education done: no Karnofsky ECOG Score: Karnofsky ECOG Score: [place] 90-Able to carry on normal activity, minor signs or symptoms of disease, ECOG 0-Fully active, able to carry on all pre-disease activities with restriction Treatment Sites: System Assessment: Pain: Pain: Yes (L hip) Nausea: Nausea: No Fatigue: Fatigue: Yes Sleep: Sleep: No Mobility: Mobility: Yes (walker) Bathing/Dressing: Bathing/Dressing: No Breathing: Breathing: No Mouth Sores: Mouth Sores: No Eating: Eating: No Indigestion: Indigestion: No Constipation: Constipation: No Diarrhea: Diarrhea: No Changes in Urination: Changes in urination: No Fevers: Fevers: No Skin Dry/Itchy: Skin dry/itchy: Yes (generally dry) Nasal: Nasal: No Hands/Feet: Tingling in hands/feet: Yes (L arm and hand) Memory/Concentration: Memory/concentation: No Swelling: Swelling: No Appearance: Appearance: No Sexual: Mucous Membrances: Mucous Membranes: Dry Eye: Eyes: 0-No gear changer baseline (blurry vision - will find an eye doctor) Ears: Salivary Glands: Salivary Glands: 0-no gear changer baseline Pharynx and Esophagus: Pharynx and Esophagus: 0-No gear changer baseline Larynx: Larynx: 0-No change in baseline Upper GI: Upper GI: 0-no gear changer baseline Lower GI including pelvis: Lower GI including pelvis: 0-No gear changer baseline Lungs: Lungs: 0-No gear changer baseline Other: PAST MEDICAL HISTORY Past Medical History: Diagnosis Date ??? Anxiety and depression ??? Degenerative disc disease, lumbar ??? Disorder of thyroid mass on thyroid - right ??? GERD (gastroesophageal reflux disease) ??? High cholesterol ??? HLD (hyperlipidemia) ??? Hypocalcemia 10/14/2020 ??? Osteoarthritis of one hip, left ??? Other hypoparathyroidism (CMS/HCC) 10/14/2020 ??? Postoperative hypothyroidism 10/14/2020 ??? Psoriasis ??? Seasonal allergies ??? Snoring ??? SOB (shortness of breath) 2/2 thyroid mass ??? Thyroid cancer (CMS/HCC) 10/14/2020 ??? Tracheal mass MEDICATIONS: Current Outpatient Medications Medication Sig ??? acetaminophen (TYLENOL) 500 MG tablet Take 2 (two) tablets by mouth every 6 hours as needed Reasons: Pain (Patient not taking: Reported on 03/25/2023) ??? atorvastatin (Lipitor) 40 MG tablet TAKE 1 TABLET BY MOUTH EVERYDAY AT BEDTIME ??? buPROPion SR 12hr (Wellbutrin-SR) 100 MG tablet Take 1 (one) tablet by mouth 2 times daily ??? calcitriol (Rocaltrol) 0.5 MCG capsule TAKE 1 CAPSULE BY MOUTH TWICE A DAY ??? YJMEZUI-SMOCVTSWL-VFUB PO Take by mouth once daily (Patient not taking: Reported on 03/25/2023) ??? celecoxib (CeleBREX) 200 MG capsule Take 1 (one) capsule by mouth once daily ??? cetirizine (ZYRTEC) 10 MG tablet Take 1 (one) tablet by mouth once daily (Patient not taking: Reported on 03/25/2023) ??? clonazePAM (KLONOPIN) 0.5 MG tablet Take 1.5 (one and one-half) tablets by mouth once daily ??? cyclobenzaprine (Flexeril) 5 MG tablet Take 1 (one) tablet by mouth 3 times daily as needed ??? famotidine (PEPCID) 20 MG tablet Take 1 (one) tablet by mouth 2 times daily as needed ??? fish oil/omega-3 fatty acids (PROMEGA;CARDI-OMEGA 3) 1000 MG capsule Take 1 (one) capsule by mouth 3 times daily with meals (Patient not taking: Reported on 03/25/2023) ??? fluticasone propionate (Flonase) 50 MCG/ACT nasal spray SPRAY 2 SPRAYS INTO EACH NOSTRIL EVERY DAY (Patient not taking: Reported on 03/25/2023) ??? gabapentin (Neurontin) 300 MG capsule Take 1 (one) capsule by mouth 3 times daily ??? PIHMWO-WGTIKBVFH-HIE-C-HYAL PO Take 1 tablet by mouth 3 times daily (Patient not taking: Reported on 03/25/2023) ??? levothyroxine (Synthroid) 112 MCG tablet TAKE 1 TABLET BY MOUTH EVERY DAY (Patient taking differently: Take 1 (one) tablet by mouth once daily) ??? Misc Natural Products (NEURIVA PO) Take 1 tablet by mouth 2 times daily (Patient not taking: Reported on 03/25/2023) ??? naloxone HCl (Narcan) 4 MG/0.1ML nasal spray [place] 1 (one) spray into the nose as [...] 1 (one) tablet by mouth at bedtime ??? vitamin E (TOCOPHERYL) 200 UNIT capsule Take 1 (one) capsule by mouth 3 times daily (Patient not taking: Reported on 03/25/2023) No current facility-administered medications for this encounter. Facility-Administered Medications Ordered in Other Encounters Medication ??? gadobutrol (Gadavist) injection OBJECTIVE: Vitals: 03/25/23 1320 BP: 142/78 Pulse: 81 Resp: 18 Temp: 98.3 ??F SpO2: 96% Weight: 64.9 kg (143 lb) PainSc: Two PainLoc: Hip Wt Readings from Last 3 Encounters: 03/25/23 64.9 kg (143 lb) 02/11/23 62.1 kg (137 lb) 01/29/23 62.1 kg (137 lb) KPS is 80 General Appearance: in no apparent distress, well developed and well nourished, alert, anicteric and cooperative HEENT: Normocephalic, atraumatic Lymph: No adenopathy of the cervical or supraclavicular fossa visible Extremities:extremities normal, atraumatic, no cyanosis or edema Neurological exam reveals alert, oriented, normal speech, no focal findings or movement disorder noted, abnormal findings: LUE weakness to bread jockey and elbow flexion extension. RADIOGRAPHIC IMAGES: No no immediate reported results found. MR cervical spine 03/25/2023 On my personal review there eis stable findings of the left sided tumor mass at C6 C7 area. There is difficulty with the appreciation of all disease due to artifact. I await for the final review of the radiologist. LABORATORY: WBC Date Value Ref Range Status 10/07/2022 8.1 3.5 - 10.5 10??3/uL Final Hemoglobin Date Value Ref Range Status 10/07/2022 9.2 (L) 12.0 - 15.6 g/dL Final Hematocrit Date Value Ref Range Status 10/07/2022 27.3 (L) 35.0 - 45.0 % Final INR Date Value Ref Range Status 10/02/2022 1.0 See Comment Final Comment: The suggested therapeutic range for standard coumadin (warfarin) therapy is an INR of 2.0-3.0. For high-risk patients (Mechanical Mitral Valve Prosthesis, etc.), the suggested prophylactic therapeutic range is an INR of 2.5-3.5. Sodium Date Value Ref Range Status 10/07/2022 143 136 - 145 mmol/L Final Chloride Date Value Ref Range Status 10/07/2022 106 98 - 107 mmol/L Final BUN Date Value Ref Range Status 10/07/2022 15 7 - 26 mg/dL Final Creatinine Date Value Ref Range Status 10/07/2022 0.56 0.56 - 0.96 mg/dL Final TSH Date Value Ref Range Status 01/20/2023 <0.010 (L) 0.350 - 4.940 uIU/mL Final IMPRESSION/PLAN Brisa Hogan presents to us today with clinical and radiographic control over her thyroid tumor with lower thyroglobulin and stable MR findings. We would like to see Brisa in 6 months for a followup visit. We have ordered her future visit.. Minimum duration of time spent in chart (preparing with review of radiographic and laboratory tests, discussion of planned care with staff and physicians, discussion with patient for counseling and educating, as well as ordering future tests, radiographic studies, or procedures) : I spent a total of 20 minutes on the day of the visit. Portions of this note reflect historical treatments, history of disease, ongoing symptomatology, and exam findings that remain unchanged from the past note ( 12/24/2022 , and may be located in Media [...] andyour physicians for clarification. Marcio Mcintosh MD 03/25/2023 1:41 PM documented in this encounter Plan of Treatment Upcoming Encounters Date Type Department Care Team (Late st Contact Info) Description 07/25/2024 10:00 AM VOICE PROFESSOR Office Visit [facility] - Endocrinology [address] [place] [phone] Yosi Bustamante MD [address] [place] [address] 2L [place] [address] 07/26/2024 10:00 AM VOICE PROFESSOR Appointment [facility] [address] [place] [phone] Neri Delgado MD [address] [place] [phone] 07/26/2024 10:00 AM VOICE PROFESSOR Office Visit [facility] - ENT [address] [place] [phone] Myra Farmer, [employer] [address] [place] [address] 2L [place] [phone] 07/26/2024 11:15 AM VOICE PROFESSOR Office Visit [facility] - ENT [address] [place] [phone] Neri Delgado MD [address] [place] [phone] 08/02/2024 2:20 PM VOICE PROFESSOR Appointment [facility] [address] [place] [phone] 08/02/2024 3:00 PM VOICE PROFESSOR Office Visit [facility] - Hematology/Oncology [address] [place] [phone] Remi Beckett MD [address] [place] [phone] 08/18/2024 1:45 PM VOICE PROFESSOR Office Visit [facility] - ENT [address] [place] [phone] Neri Delgado [place] [address] documented as of this encounter Results * MRI CERVICAL SPINE WWO CONT (10/01/2023 10:44 AM CDT) Anatomical Region Laterality Modality Spine Magnetic Resonan ce 10/01/2023 5:10 PM CDT Impressions 10/01/2023 5:54 PM CDT IMPRESSION: 1.Redemonstration of postoperative findings of C3-C7 [...] bodies, mildly increased compared to prior study suggesting disease progression. There is also interval increased narrowing [...] Pearl Jean-Baptiste MD on 10/01/2023 5:54 PM Narrative 10/01/2023 5:54 PM CDT PROCEDURE: ??MRI CERVICAL SPINE WWO CONT, DATE/TIME OF EXAM: ??10/01/2023 10:44 AM, LOCATION ??[facility] INDICATION: C79.51: Cancer, metastatic to bone (HCC) D49.2: Cervical spine tumor ADDITIONAL CLINICAL INFORMATION: Ordering Provider Reason For Exam: ??sean marquez COMPARISON: MRI cervical spine 03/25/2023 TECHNIQUE: Cervical spine MRI was performed without and with IV contrast, according to standard protocol. CONTRAST: ?? GADOBUTROL 1 MMOL/ML IV [facility] SO:5 mL FINDINGS: Redemonstration of postoperative findings of C3-C7 decompressive laminectomy for resection of the extramedullary tumor, posterior instrumented fusion with the through the levels of C2-T2 with vertical interconnecting rods and bilateral lateral mass/pedicular screws bilaterally at the level of C2-C3 and T1-T2, unilateral right-sided screws through the levels of C4-C7... Susceptibility artifact from the hardware limits evaluation The replacement throughout the marrow could [...] 1.2 cm (image 26, series 9) previously measured 1.1 x 1.2 cm, (series 7, image 26), [...] the bilateral vertebral artery flow voids. No prevertebral soft tissue swelling. No enlarged lymph nodes noted. [...] visualized portions of the posterior fossa appear grossly stable. There is moderate disc height loss at multiple levels. Multilevel disc degenerative changes unchanged compared to [...] the left side, similar to prior study. Procedure Note Pearl Jean-Baptiste MD - 10/01/2023 PROCEDURE: MRI CERVICAL SPINE WWO CONT, DATE/TIME OF EXAM: 10/01/2023 10:44 AM, LOCATION [facility] INDICATION: C79.51: Cancer, metastatic to bone (HCC) D49.2: Cervical spine tumor ADDITIONAL CLINICAL INFORMATION: Ordering Provider Reason For Exam: eval jackie marquez COMPARISON: MRI cervical spine 03/25/2023 TECHNIQUE: Cervical spine MRI was performed without and with IV contrast, accordingto standard protocol. CONTRAST: GADOBUTROL 1 MMOL/ML IV [facility] SO:5 mL FINDINGS: Redemonstration of postoperative findings of C3-C7 decompressive laminectomy for resection of the extramedullary tumor, posterior instrumented fusion with the through the levels of C2-T2 with vertical interconnecting rods and bilateral lateral mass/pedicular screws bilaterally at the level of C2-C3 and T1-T2, unilateral right-sidedscrews through the levels of C4-C7... Susceptibility artifact from the hardware limits evaluation The replacement throughout the marrow could be sequela of post radiation changes. Redemonstration of marrow replacing lesions along the posterior aspect of C5 and C6 vertebral bodies, with STIR hyperintensity, similarto prior study, most likely secondary to known metastatic lesions..Interval new T1 hypointensity and STIR hyperintensity involving the T1 vertebral body,, odontoid process of C2 vertebral body, new compared to priorstudy (image 10, series 4 image 8, series 4) evaluation of associatedenhancement is limited secondary to artifact from the hardware. There is interval new extension of STIR hyperintensity/T1 hypointensity into the posterior aspect of C4 vertebral body (image 9, series 7) also suspicious for metastatic replacing lesion. There is associatedextension of nodular enhancement into the ventral epidural region through thelevels of C4-C5 to T1-T2 inferiorly measuring approximately 3 mm in maximum thickness (image 10, series 8). There is associated moderate centralcanal stenosis through the levels of C5-C6, C6-C7 secondary to discdegenerative changes and interval increase to epidural component of the tumor. Thereis also epidural collection predominantly along the right lateral aspectand along the levels of C7-T1 causing associated mild to moderate centralcanal stenosis (image 32, series 6). However posterior decompression noted through the levels of C5-C6, C6-C7 from prior laminectomies. Persistent enhancing soft tissue lesions in the anterolateral aspect ofthe C5-C6, C6-C7 neural foramina and also involving the adjacent ventral epidural space, posterior elements and vertebral bodies again noted. Persistent enhancing soft tissues are again noted in the left [id number] foramen extending into the adjacent ventral epidural space,anterolateral extraforaminal compartment measuring approximately 2.1 x 1 cm previously measured 2.1 x 7 cm. There is interval persistent narrowing of theadjacent left vertebral artery flow void. Interval new increased soft tissue inthe left C4-C5 neural foramina with associated anterior displacement and narrowing of the adjacent left vertebral artery flow void (image 19,series 6) suggesting extension into the left transverse foramina. Persistent enhancing soft tissue enhancement in the left C6-C7 neural foramen measures approximately 1.5 x 1.2 cm (image 26, series 9) previously measured 1.1 x 1.2 cm, (series 7, image 26), mildly increased compared to prior study. There is associated increased narrowing of the adjacent left vertebral artery (image 26, series 9). Interval increased ventral epidural soft tissue component measuring about5 mm in thickness and associated moderate central canal stenosis (image32, 30, series 6). 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 There isnarrowing of the left vertebral artery through the levels of C4, to the level of C6-C7 compared to prior study (image 26, series 6) could be secondary to compression from surrounding soft tissue lesion otherwise normalappearance of the bilateral vertebral artery flow voids. No prevertebral softtissue swelling. No enlarged lymph nodes noted. Nonspecific 1 to 1.2 cm nodular soft tissue along the left anterolateral aspect of the trachea unchanged compared to study from 03/25/2023 with STIR hyperintensity. (Image 31, series 9 image 7, series 8) Evaluation of the spinal cord signal is limited compared to prior study. There is interval new focus of STIR hyperintensity at the level ofC4-C5, not conspicuous on T2 imaging could be [...] without evidence of compression fractures. The craniocervical junctionand visualized portions of the posterior fossa appear grossly stable. Thereis moderate disc height loss at multiple levels. Multilevel disc degenerative changes unchanged compared to prior study..No significant central canal stenosis through the levels of C2-C3, C3-C4, C4-C5, similar to prior study. No significant interval change in the multilevel right-sided moderate neural foraminal stenosis through thelevel of C4-C5 to C6-C7. There is soft tissue extension of tumor through the levels of C4-C5, C5-C6 and C6-C7 neural foramina on the left side,similar to prior study. IMPRESSION: 1.Redemonstration of postoperative findings of C3-C7 decompressive laminectomy for partial resection of the extramedullary tumor, and C2-T2 posterior instrumented fusion, with postsurgical changes as outlinedabove. 2. Interval development of new marrow replacing lesions involving T1 vertebral body body, posterior aspect of C4 vertebral body, dens of C2 vertebral body suggesting progression/new metastatic lesions. There isalso associated interval development of ventral epidural extension of thetumor through the levels of C4-C5 to T1-T2 inferiorly and associated ventral effacement of the CSF space/moderate central canal stenosis through the levels of C5-C6 to C7-T1 inferiorly. 3.There is also interval new enhancing soft tissue in the left C4-P3jopqoz foramina. Residual soft tissue enhancing lesions in the left C5-Z2gzzhhc foramina, left C6-C7 neural foramina also involving the osseousinvolvement of C5-C6 vertebral bodies including posterior elements elements and adjacent anterolateral aspect of the vertebral bodies, mildly increased compared to prior study suggesting disease progression. There is also interval increased narrowing of the left vertebral artery flow void atthe level of C6 and C4. 4.There is interval new small focus of STIR hyperintensity in the spinal cord at the level of C4-C5, not visualized on T2 imaging could be artifactual versus myelomalacia, however continued attention recommendedon follow-up. > Interpreting Provider: Pearl Jean-Baptiste MD on 10/01/2023 5:54 PM Marcio Mcintosh MD MR ORDERABLES documented [...] nature of bone, soft tissue, and skin documented in this encounter Care Teams Chuck Wagon Cook Relationship Specialty Start Date End Date Joseph Manzanares MD [address] [place] [address] PCP - General Internal Medicine 10/07/22 04/20/23 Tiana Naylor DO [address] [place] [address] Resident - PCP Internal Medicine 01/13/23 04/20/23 documented as of this encounter
--- OUTSIDE RECORDS SUMMARY | 2024-07-23 07:09 | XMS_ITS | Encounter Summary ---
Author Organization [facility] Health Address [address] [facility] [address] Care Team Providers Care Corporate Communications Specialist Name Role Phone Joseph Manzanares MD Unavailable Yaya Villatoro MD Primary Care Provider [phone]- [phone] Reason for Visit * Reason Onset Date Comments Appointment 10/15/2023 Spoke with pt. r egarding an appt. on Wednesday10-19-2023 @ 10:[address] Herman Encounter Details Date Type Department Care Team (Late st Contact Info) Description 10/15/2023 Telephone [facility] - Hematology/Oncology [address] [place] [address] Blaine Herman MD [address] [place] [address] Appointment (Spoke with pt. regarding an appt. on Wednesday10-19-2023 @ 10:[address] Herman) Social History Tobacco Use Types Packs/Day Years [...] Date Recorded PHQ2 TOTAL SCORE 1 11/25/2022 [facility] of Occupat ional Health - Occupational Stress [...] encounter Miscellaneous Notes * Telephone Encounter - Ericka Palomo - 10/15/2023 11:07 AM CDT Spoke with pt. regarding an appt. on Wednesday10-19-2023 @ 10:[address] Herman documented in this encounter Plan of Treatment Upcoming Encounters Date Type Department Care Team (Late st Contact Info) Description 07/25/2024 10:00 AM SUPERVISOR SAFETY DEPOSIT Office Visit [facility] - Endocrinology [address] [place] [phone] Yosi Bustamante MD [address] [place] [address] 2L [place] [address] 07/26/2024 10:00 AM SUPERVISOR SAFETY DEPOSIT Appointment [facility] [address] [place] [phone] Neri Delgado MD [address] [place] [address] 07/26/2024 10:00 AM SUPERVISOR SAFETY DEPOSIT Office Visit [facility] - ENT [address] [place] [phone] Myra Farmer, ASSISTANT MERCHANDISER [address] [place] [address] 2[address] [place] [address] 07/26/2024 11:15 AM SUPERVISOR SAFETY DEPOSIT Office Visit [facility] - ENT [address] [place] [phone] Neri Delgado MD [address] [place] [address] 08/02/2024 2:20 PM SUPERVISOR SAFETY DEPOSIT Appointment [facility] [address] [place] [address] 08/02/2024 3:00 PM SUPERVISOR SAFETY DEPOSIT Office Visit [facility] - Hematology/Oncology [address] [place] [phone] Remi Beckett MD [address] [place] [phone] 08/18/2024 1:45 PM SUPERVISOR SAFETY DEPOSIT Office Visit [facility] - ENT [address] [place] [phone] Neri Delgado MD [address] [place] [address] documented as of this encounter Visit Diagnoses Not on filedocumented in this encounter Care Teams Corporate Communications Specialist Relationship Specialty Start Date End Date Yaya Villatoro MD [address] [place] [phone] PCP - General Internal Medicine 05/04/23 Joseph Manzanares MD [address] [place] [phone] Internal Medicine 04/21/23 documented as of this encounter
--- OUTSIDE RECORDS SUMMARY | 2024-07-23 07:09 | XMS_ITS | Encounter Summary ---
Author Organization [facility] Health Address [address] [facility] [place] [address] Care Team Providers Care Steward/Stewardess Night Name Role Phone Joseph Manzanares MD Unavailable Yaya Villatoro MD Primary Care Provider [phone]- [phone] Encounter Details Date Type Department Care Team (Latest Contact Info) Description 06/10/2023 12:13 PM ANSWERING SERVICE AGENT - 06/10/2023 11:59 PM [facility] Encounter [facility] OP DRAW STATION [address] [place] [phone] Discharge Disposition: Home or Self Care Social [...] PHQ2 TOTAL SCORE 1 11/25/2022 [facility] of Occupat ional Health - Occupational [...] naloxone HCl (Narcan) 4 MG/0.1ML nasal spray [place] 1 (one) spray into the nose as [...] 6 hours as needed Reasons: Pain 06/13/2023 calcitriol (Rocaltrol) 0.5 MCG capsuleIndications:Posto perative hypothyroidism,Thyroid cancer (HCC),Hypocalcemia TAKE 1 CAPSULE BY MOUTH TWICE A DAY 60 capsule 11 05/28/2023 06/14/2023 UBAUEQV-GXSHEZVUX-UQTY PO Take by mouth once daily 06/13/2023 [...] mouth 3 times daily with meals 06/13/2023 PMVTCC-IMDRILBCG-JXR-C-H YAL PO Take 1 tablet by mouth [...] daily 06/13/2023 documented as of this encounter Plan of Treatment Upcoming Encounters Date Type Department Care Team (Late st Contact Info) Description 07/25/2024 10:00 AM ANSWERING SERVICE AGENT Office Visit [facility] - Endocrinology [address] [place] [address], [place] [address] Yosi Bustamante MD [address] [place] [address] [place] [address] 07/26/2024 10:00 AM ANSWERING SERVICE AGENT Appointment [facility] [address] [place] [phone] Neri Delgado MD [address] [place] [address] 07/26/2024 10:00 AM ANSWERING SERVICE AGENT Office Visit [facility] - ENT [address] [place] [phone] Myra Farmer, CABINETMAKER SUPERVISOR [address] [place] [address] [place] [phone] 07/26/2024 11:15 AM ANSWERING SERVICE AGENT Office Visit [facility] - ENT [address] [place] [phone] Neri Delgado MD [address] [place] [address] 08/02/2024 2:20 PM ANSWERING SERVICE AGENT Appointment [facility] [address] [place] [address] 08/02/2024 3:00 PM ANSWERING SERVICE AGENT Office Visit [facility] - Hematology/Oncology [address] [place] [phone] Remi Beckett MD [address] [place] [phone] 08/18/2024 1:45 PM ANSWERING SERVICE AGENT Office Visit [facility] - ENT [address] [place] [phone] Neri Delgado MD [address] [place] [address] documented as of this encounter Procedures Procedure Name Priority Date/Time Associated Diagnosis Comments THYROGLOBULIN REFLEX PROFILE Routine 06/10/2023 12:29 PM ANSWERING SERVICE AGENT Postoperative hypothyroidism Thyroid cancer (HCC) Hypocalcemia Other hypoparathyroidism THYROGLOBULIN BY ANTONIETA RFLXED Routine 06/10/2023 12:29 PM ANSWERING SERVICE AGENT Postoperative hypothyroidism Thyroid cancer (HCC) Hypocalcemia Other hypoparathyroidism TSH Routine 06/10/2023 12:29 PM ANSWERING SERVICE AGENT Postoperative hypothyroidism Thyroid cancer (HCC) Hypocalcemia Other hypoparathyroidism documented in this encounter Results * (ABNORMAL) THYROGLOBULIN BY ANTONIETA RFLXED (06/10/2023 12:29 PM ANSWERING SERVICE AGENT) Thyroglobulin by ANTONIETA 141.9(H) 1.5 - 38.5 ng/mL 06/11/2023 6:08 PM ANSWERING SERVICE AGENT [facility] ([facility]) Comment: According to the National Academy of [...] SPECIMEN / Unknown Lab Venipuncture / Unknown 06/10/2023 12:29 PM ANSWERING SERVICE AGENT 06/10/2023 12:42 PM ANSWERING SERVICE AGENT Narrative [facility] ([facility]) - 06/11/2023 6:08 PM ANSWERING SERVICE AGENT Performed at: ??01 - [facility] [address] [place], [place] ??[id number] Senior Sas Programmer: Oral Melendez PhD, Phone: ??[phone] Yosi Bustamante MD LAB - CHEMISTRY ORD ERABLES [facility] ([facility]) [address] [place] [address], [facility] * THYROGLOBULIN REFLEX PROFILE (06/10/2023 12:29 PM ANSWERING SERVICE AGENT) Thyroglobulin Antibody <1.0 0.0 - 0.9 IU/mL 06/11/2023 6:08 PM ANSWERING SERVICE AGENT [facility] ([facility]) Comment:Thyroglobulin Antibo dy measured by [facility] [place] [facility] Blood BLOOD SPECIMEN / Unknown Lab Venipuncture / Unknown 06/10/2023 12:29 PM ANSWERING SERVICE AGENT 06/10/2023 12:42 PM ANSWERING SERVICE AGENT Narrative [facility] ([facility]) - 06/11/2023 6:08 PM ANSWERING SERVICE AGENT Performed at: ??01 - [facility] [address] [place], [place] ??[id number] Senior Sas Programmer: Oral Melendez PhD, Phone: ??[phone] Yosi Bustamante MD LAB - CHEMISTRY ORD ERABLES Performing Organization Address City/[facility]/ZIP Co de Phone Number [facility] ([facility]) [address] [place] [address] * (ABNORMAL) TSH (06/10/2023 12:29 PM ANSWERING SERVICE AGENT) TSH <0.010(L) 0.350 - 4.940 uIU/mL 06/10/2023 1:41 PM ANSWERING SERVICE AGENT [facility] Blood BLOOD SPECIMEN / Unknown Lab Venipuncture / Unknown 06/10/2023 12:29 PM ANSWERING SERVICE AGENT 06/10/2023 12:49 PM ANSWERING SERVICE AGENT Yosi Bustamante MD LAB - CHEMISTRY ORD ERABLES [facility] [address] [place] [address], [facility] [phone] documented in this encounter Visit Diagnoses Diagnosis Postoperative hypothyroidism Postsurgical hypothyroidism Thyroid cancer (HCC) Malignant neoplasm of thyroid gland Hypocalcemia Other hypoparathyroidism (HCC) documented in this encounter Care Teams Steward/Stewardess Night Relationship Specialty Start Date End Date Yaya Villatoro MD [address] [facility] [address] [place] [address] PCP - General Internal Medicine 05/04/23 Joseph Manzanares MD [address] [place] [phone] Internal Medicine 04/21/23 documented as of this encounter
--- OUTSIDE RECORDS SUMMARY | 2024-07-23 07:09 | XMS_ITS | Encounter Summary ---
Author Organization [facility] Health Address [address] [facility] [place] [address] Care Team Providers Care Commercial Litigation Attorney Name Role Phone Joseph Manzanares MD Unavailable Yaya Villatoro MD Primary Care Provider [phone]- [phone] Encounter Details Date Type Department Care Team (Latest Contact Info) Description 10/18/2023 1:02 PM CDT - 10/18/2023 11:59 PM CDT Hospital Encounter [facility] [place], [place] [phone] Marcio Mcintosh MD [address] [place], [place] [phone] Discharge Disposition: Home or Self Care Social [...] Date Recorded PHQ2 TOTAL SCORE 1 11/25/2022 [facility] of Occupat ional Health - Occupational Stress [...] place to sleep or slept in a prison (including now)? No 10/02/2022 Sex and Gender [...] HCl (Narcan) 4 MG/0.1ML nasal spray [place] 1 (one) spray into the nose as [...] dose 1 mL 06/14/2023 10/25/2023 HYDROcodone-acetamino phen ([place]) 5-325 MG tabletIndications:Cer vical spine tumor,Cancer, metastatic to bone (HCC),Thyroid cancer (HCC),Malignant tumor of thyroid gland (HCC),Secondary malignant neoplasm of bone (HCC) Take 1 (one) tablet by mouth every 8 hours as needed for Pain 12 tablet 10/11/2023 10/20/2023 levothyroxine (Synthroid) 112 MCG tabletIndications:Hyp othyroidism,Malignant Neoplasm of Thyroid Take 1 (one) tablet by mouth daily before breakfast Except Wednesday take one and a half pills Reasons: Cancer of Thyroid, Underactive Thyroid 100 tablet 3 06/14/2023 10/25/2023 documented as of this encounter Plan of Treatment Upcoming Encounters Date Type Department Care Team (Late st Contact Info) Description 07/25/2024 10:00 AM CRANE OPERATOR Office Visit [facility] - Endocrinology [address] [facility] [place] [address] Yosi Bustamante MD [address] [place] [address] [place] [address] 07/26/2024 10:00 AM CRANE OPERATOR Appointment [facility] [address] [place] [address] Neri Delgado MD [address] [place] [address] 07/26/2024 10:00 AM CRANE OPERATOR Office Visit [facility] - ENT [address] [place] [address] [phone] Myra Farmer, DEHYDRATOR TENDER [address] [place] [address] [place] [phone] 07/26/2024 11:15 AM CRANE OPERATOR Office Visit [facility] - ENT [address] [place] [phone] Neri Delgado MD [address] [place] [address] 08/02/2024 2:20 PM CRANE OPERATOR Appointment [facility] [address] [place] [address] 08/02/2024 3:00 PM CRANE OPERATOR Office Visit [facility] - Hematology/Oncology [address] [place] [phone] Remi Beckett MD [address] [place] [address] [phone] 08/18/2024 1:45 PM CRANE OPERATOR Office Visit [facility] - ENT [address] [place] [phone] Neri Delgado MD [address] [place] [address] documented as of this encounter Visit Diagnoses Not on filedocumented in this encounter Care Teams Commercial Litigation Attorney Relationship Specialty Start Date End Date Yaya Villatoro MD [address] [place] [phone] PCP - General Internal Medicine 05/04/23 Joseph Manzanares MD [address] [place] [phone] Internal Medicine 04/21/23 documented as of this encounter
--- OUTSIDE RECORDS SUMMARY | 2024-07-23 07:09 | XMS_ITS | Encounter Summary ---
Author Organization [facility] Health Address [address] [place] [address] Care Team Providers Care Lead Slot Technician Name Role Phone Joseph Manzanares MD Primary Care Provider [phone] Tiana Naylor DO Unavailable [phone] Reason for Visit * Reason Comments Pain Hip Encounter Details Date Type Department Care Team (Late st Contact Info) Description 04/01/2023 1:00 PM CDT Office Visit [facility] Health Pain Care [address] [place] [address] Vivi Romero, FIRE SAFETY MANAGER-LAND SURVEYING MANAGER [address] [place] [address] Primary osteoarthritis of both hips (Primary Dx) Social History Tobacco Use Types [...] Date Recorded PHQ2 TOTAL SCORE 1 11/25/2022 [facility] [place] of Occupat ional Health - Occupational Stress [...] Sign Reading Time Taken Comments Blood Pressure 146/96 04/01/2023 1:14 PM CDT Pulse 98 04/01/2023 1:14 PM CDT Temperature 36.7 ??C (98 ??F) 04/01/2023 1:14 PM CDT Respiratory Rate 18 04/01/2023 1:14 PM CDT Oxygen Saturation - - Inhaled Oxygen Concentration - - Weight - [...] this encounter Patient Instructions * Patient Instructions* Vivi Romero APRN-CNP - 04/05/2023 8:57 AM CDT Schedule left intra articular hip injection documented in this encounter Progress Notes * Lia Gilbert RN - 04/01/2023 1:11 PM CDT 04/01/23 1300 Functional Rating Index Score tool Pain Intensity 3 - Severe pain Sleeping 1 - Mildly disturbed sleep Personal Care (washing, dressing, etc.) 2 - Moderate pain, Need to go slowly Travel (driving etc.) 3 - Moderate pain on short trips Work 4 - Cannot work Recreation 4 - Cannot do any activities Frequency of pain 2 - Intermittent pain, 50% of the day Lifting 4 - Increased pain with any weight Walking 3 - Increased pain after 1/4 mile Standing 4 - Increased pain with any standing Total Score 30 Self Rated Disability Level of 75 % * Lia Gilbert RN - 04/01/2023 1:06 PM CDT Brisa returns to Pain Management office today for evaluation of hip pain pain. She rates the pain 7/10 today. ?? What was the worst your pain was in the last 30 days? 710 Have you had any new imaging since your last visit? No ?? Have you had any new therapies since your last visit? No ?? History of NSAIDs tried and failed: Tylenol. Unable to take Ibuprofen ?? Other medications tried and failed: None. ?? Medications currently taking include: cyclobenzaprine (Flexeril) and gabapentin (Neurontin) ?? Interventional treatments performed: 01/14/2023- LEFT??Hip intra-articular steroid injection??- 80% relief 12/10/2022- LEFT??Hip intra-articular steroid injection??- 90% relief ?? Have you had improvement in ADLs after interventions? Yes Please list: Cooking ?? Functional Index score today: 30 * Vivi Romero, FIRE SAFETY MANAGER-LAND SURVEYING MANAGER - 04/01/2023 1:06 PM CDT Brisa Hogan is a 62 year old female PCP: Joseph Manzanares MD Chief Complaint: Left hip pain Brisa??returns to Pain Management office today for evaluation of hip pain??pain. She??rates the pain 7/10??today. ?? What was the worst your pain was in the last 30 days???710 Have you had any new imaging since your last visit???No ?? Have you had any new therapies since your last visit???No ?? History of NSAIDs tried and failed:??Tylenol.??Unable to take Ibuprofen ?? Other medications tried and failed:??None. ?? Medications currently taking ?include: cyclobenzaprine (Flexeril) and gabapentin (Neurontin)? Interventional treatments performed:?01/14/2023-??LEFT??Hip intra-articular steroid injection??- 80% relief 12/10/2022-??LEFT??Hip intra-articular steroid injection??- 90% relief ?? Have you had improvement in ADLs after interventions???Yes Please list:??Cooking? Functional Index score today:??30 Functional Rating Index FUNCTIONAL RATING INDEX 04/01/2023 1300 Pain Intensity: 3 - Severe pain Sleepin - Mildly disturbed sleep Personal Care (washing, dressing, etc.): 2 - Moderate pain, Need to go slowly Travel (driving etc.): 3 - Moderate pain on short trips Work: 4 - Cannot work Recreation: 4 - Cannot do any activities Frequency of pain: 2 - Intermittent pain, 50% of the day Liftin - Increased pain with any weight Walkin - Increased pain after 1/4 mile Standin - Increased pain with any standing Total Score: 30 Self Rated Disability Level of: 75 % HPI: Constitutional: alert, cooperative, no distress, oriented to person, place, and time The patient is reporting left hip pain discomfort with ROM Limited ROM The pain has been present for 3 years . The pain began gradually over time. Associated symptoms include deep throbbing aching pain . The pain worsens with standing and walking, getting up in the morning, going up and down stairs, lying on side and getting up from a seated position, weather . The pain improves with medication and rest injections . The patient has tried the following modalities physical therapy, gabapentin celebrex and lidocaine patch . The patient continues to utilize gabapentin . The patient has undergone diagnostic imaging,xray . Previous interventions include left bursa and hip injection . They come in today upon referral from No ref. provider found Denies bowel and bladder problems On the previous visit, the patient underwent left hip injection. The injection resulted in and improvement in symptoms of greater than 75%. The duration of benefit from the procedure was 3 months she rates the pain 7/10 today. Current Medication: Current Outpatient Medications on File Prior to Visit Medication Sig Dispense Refill ??? acetaminophen (TYLENOL) 500 MG tablet Take 2 (two) tablets by mouth every 6 hours as needed Reasons: Pain (Patient not taking: Reported on 03/25/2023) ??? atorvastatin (Lipitor) 40 MG tablet TAKE 1 TABLET BY MOUTH EVERYDAY AT BEDTIME 30 tablet 3 ??? buPROPion SR 12hr (Wellbutrin-SR) 100 MG tablet Take 1 (one) tablet by mouth 2 times daily ??? calcitriol (Rocaltrol) 0.5 MCG capsule TAKE 1 CAPSULE BY MOUTH TWICE A DAY 60 capsule 11 ??? IRHIHWG-BTNJBIZTT-PTYL PO Take by mouth once daily (Patient not taking: Reported on 04/01/2023) ??? celecoxib (CeleBREX) 200 MG capsule Take 1 (one) capsule by mouth once daily 90 capsule 3 ??? cetirizine (ZYRTEC) 10 MG tablet Take 1 (one) tablet by mouth once daily (Patient not taking: Reported on 03/25/2023) 30 tablet 5 ??? clonazePAM (KLONOPIN) 0.5 MG tablet Take 1.5 (one and one-half) tablets by mouth once daily ??? cyclobenzaprine (Flexeril) 5 MG tablet Take 1 (one) tablet by mouth 3 times daily as needed 90 tablet 1 ??? famotidine (PEPCID) 20 MG tablet Take [...] DAY (Patient not taking: Reported on 03/25/2023) 48 g 0 ??? gabapentin (Neurontin) 300 MG capsule Take 1 (one) capsule by mouth 3 times daily 90 capsule 5 ??? WEMTRF-LXVWSVPGU-URV-C-HYAL PO Take 1 tablet by mouth 3 times daily (Patient not taking: Reported on 03/25/2023) ??? levothyroxine (Synthroid) 112 MCG tablet TAKE 1 TABLET BY MOUTH EVERY DAY (Patient taking differently: Take 1 (one) tablet by mouth once daily) 90 tablet 4 ??? Misc Natural Products (NEURIVA PO) Take 1 tablet by mouth 2 times daily (Patient not taking: Reported on 03/25/2023) ??? naloxone HCl (Narcan) 4 MG/0.1ML nasal spray [place] 1 (one) spray into the nose as needed ??? oxybutynin CR 24hr (Ditropan-XL) 5 MG tablet Take 1 (one) tablet by mouth once daily 90 tablet 4 ??? pantoprazole EC (Protonix) 40 MG tablet TAKE ONE TABLET BY MOUTH ONCE DAILY FOR STOMACH 90 tablet 0 ??? PARoxetine (PAXIL) 40 MG tablet Take 1 (one) tablet by mouth once daily 2 ??? traZODone (DESYREL) 50 MG tablet Take 1 (one) tablet by mouth at bedtime ??? vitamin E (TOCOPHERYL) 200 UNIT capsule Take 1 (one) capsule by mouth 3 times daily (Patient not taking: Reported on 03/25/2023) No current facility-administered medications on file prior to visit. Surgical history: Past Surgical History: Procedure Laterality Date ??? [...] DIRECT LARYNGOSCOPY WITH BIOPSY ??? Polypectomy cervical MEDBRIEFNAME@ Allergies Allergen Reactions ??? Kiwi Extract Anaphylaxis Occupation: Currently Working: Yes/No Review of Systems EENT-neg CARDIAC-neg RESPIRATORY-neg GI-neg -neg INTEG-neg HEM/ONC-neg ENDOCRINE-neg PSYCH-neg NEURO-neg MUSCULOSKELETAL see HPI Physical Examination: BP 146/96 (BP SITE: RIGHT ARM, BP POSITION: SITTING) Pulse 98 Temp 98 ??F (36.7 ??C) (Tympanic) Resp 18 Alert and oriented x 3 HEENT: normocephalic, atraumatic Cardiovascular: Regular rate and rhythm Respiratory: Unlabored breathing, clear to auscultation Examination of Gait: A normal/abnormal gait pattern is noted without evidence of antalgia, focal muscle weakness or instability. Heel and toe-walk are normal/abnormal. Tandem walk is normal/abnormal. . Plan: Patient will continue to be a part of a comprehensive pain management program as tolerated, while and after treatment plan is carried out. The patient reported their current pain is 7 in the office but is a 10 at worst and their pain disability index score is see above number Schedule left intra articular hip injection Procedures: Diagnostic Imaging: Assessment: (M16.0) Primary osteoarthritis of both hips (primary encounter diagnosis) The encounter diagnosis was Primary osteoarthritis of both hips. Continue exercises as prescribed. Continue with prescribed medications as ordered. Orders this visit: No orders of the defined types were placed in this encounter. Follow up /Instructions: Return for Schedule left intra articular hip injection. Patient education/teaching: Risk, benefits, and alternatives of treatment discussed with patient, including medication, interventions, and physical therapy. Risks including, but not limited to infection, elevations in blood glucose levels, permanent neurological deficit due to nerve injury, bleeding, anaphylaxis, flushing, cerebral spinal fluid leak, paralysis, spinal cord injury, thinning of the skin, thinning of the bones, muscle cramping, were reviewed and understanding was confirmed. Patient is agreeable to a plan to move forward with the procedure as stated above. Any procedures scheduled were explained with the use of a model. Side effects of medications explained, precautions discussed. Treatment plan and any changes in current treatment discussed. Patient verbalized understanding Thank you for letting me take part in this patient???s care. Sincerely, GILES Peterson APRN . documented in this encounter Plan of Treatment Upcoming Encounters Date Type Department Care Team (Late st Contact Info) Description 07/25/2024 10:00 AM ARCHIVIST NON[employer]OFIT FOUNDATION Office Visit [facility] - Endocrinology [address] [place] [address], [place] [phone] Yosi Bustamante MD [address] [place] [address] [place] [address] 07/26/2024 10:00 AM [employer]IST [employer] Appointment [facility] [address] [place] [phone] Neri Delgado MD [address] [place] [phone] 07/26/2024 10:00 AM [employer] Office Visit [facility] - ENT [address] [place] [phone] Myra Farmer, ROOF TECHNICIAN [address] [place] [address] [place] [phone] 07/26/2024 11:15 AM [employer]IST [employer] Office Visit [facility] - ENT [address] [place] [phone] Neri Delgado MD [address] [place] [phone] 08/02/2024 2:20 PM [employer] Appointment [facility] [address] [place] [phone] 08/02/2024 3:00 PM [employer] Office Visit [facility] - Hematology/Oncology [address] [place] [phone] Remi Beckett MD [address] [place] [phone] 08/18/2024 1:45 PM [employer] Office Visit [facility] - [facility]NT [address] [place] [phone] Neri Delgado MD [address] [place] [phone] documented as of this encounter Visit Diagnoses Diagnosis Primary osteoarthritis of both hips- Primary Primary localized osteoarthrosis, pelvic region and thigh documented in this encounter Care Teams Lead Slot Technician Relationship Specialty Start Date End Date Joseph Manzanares MD [address] [place] [phone] PCP - General Internal Medicine 10/07/22 04/20/23 Tiana Naylor DO [address] [facility] [place] [address] Resident - PCP Internal Medicine 01/13/23 04/20/23 documented as of this encounter
--- OUTSIDE RECORDS SUMMARY | 2024-07-23 07:09 | XMS_ITS | Encounter Summary ---
Author Organization [facility] Health Address [address] [facility] [place] [address] Care Team Providers Care Safety Glass Installer Name Role Phone Joseph Manzanares MD Unavailable Yaya Villatoro MD Primary Care Provider [phone] Encounter Details Date Type Department Care Team (Latest Contact Info) Description 10/19/2023 11:00 AM CDT - 10/19/2023 11:59 PM CDT Hospital Encounter [facility] [place], [place] [phone] Marcio Mcintosh MD [facility] [place] [address] Discharge Disposition: Home or Self [...] Date Recorded PHQ2 TOTAL SCORE 1 11/25/2022 [facility] [place] of Occupat ional Health - Occupational Stress [...] naloxone HCl (Narcan) 4 MG/0.1ML nasal spray [place] 1 (one) spray into the nose as [...] dose 1 mL 06/14/2023 10/25/2023 HYDROcodone-acetamino phen ([place]) 5-325 MG tabletIndications:Cer vical spine tumor,Cancer, metastatic [...] Contact Info) Description 07/25/2024 10:00 AM PATIENT RELATIONS REPRESENTATIVE Office Visit [facility] - Endocrinology [address] [facility] [place] [phone] Yosi Bustamante MD [address] [place] [address] [place] [address] 07/26/2024 10:00 AM PATIENT RELATIONS REPRESENTATIVE Appointment [facility] [address] [place] [phone] Neri Delgado MD [address] [place] [phone] 07/26/2024 10:00 AM PATIENT RELATIONS REPRESENTATIVE Office Visit [facility] - ENT [address] [place] [phone] Myra Farmer, NUCLEAR REACTOR TECHNICIAN [address] [place] [address] [place] [phone] 07/26/2024 11:15 AM PATIENT RELATIONS REPRESENTATIVE Office Visit [facility] - ENT [address] [place] [phone] Neri Delgado MD [address] [place] [phone] 08/02/2024 2:20 PM PATIENT RELATIONS REPRESENTATIVE Appointment [facility] [address] [place] [phone] 08/02/2024 3:00 PM PATIENT RELATIONS REPRESENTATIVE Office Visit [facility] - Hematology/Oncology [address] [place] [phone] Remi Beckett MD [address] [place] [phone] 08/18/2024 1:45 PM PATIENT RELATIONS REPRESENTATIVE Office Visit [facility] [address] [place] [phone] Neri Delgado MD [address] [place] [phone] documented as of this encounter Visit Diagnoses Not on filedocumented in this encounter Care Teams Safety Glass Installer Relationship Specialty Start Date End Date Yaya Villatoro MD [address] [place] [phone] PCP - General Internal Medicine 05/04/23 Joseph Manzanares MD [address] [place] [phone] Internal Medicine 04/21/23 documented as of this encounter
--- OUTSIDE RECORDS SUMMARY | 2024-07-23 07:09 | XMS_ITS | Encounter Summary ---
Author Organization [facility] Address [address] [facility] [place] [address] Care Team Providers Care Cottage Supervisor Name Role Phone Joseph Manzanares MD Primary Care Provider Dayday Tiana DO Unavailable [phone] Reason for Visit * Radiology Services (Routine) - Closed Specialty Diagnoses / Procedures Referred By Yuan robins Referred To Contact Diagnoses Cervical spine tumor Cancer, metastatic to bone (HCC) Thyroid cancer (HCC) Procedures MRI CERVICAL SPINE WWO CONT Marcio Mcintosh MD [address] [place] [address] [phone] Referral ID Status Reason Start Date Expiration Date Visits Re quested Visits Authorized [id number] Closed 03/25/2023 06/23/2023 1 1 Encounter Details Date Type Department Care Team (Latest Contact Info) Description 03/25/2023 11:30 AM CDT - 03/25/2023 12:59 PM CDT Hospital Encounter [facility] MRI [address] [place] [phone] Marcio Mcintosh MD [address] [place] [address] Discharge Disposition: Home or Self [...] Date Recorded PHQ2 TOTAL SCORE 1 11/25/2022 [facility] [place] [facility] Occupat ional [facility] - Occupational Stress [...] 3 times daily 90 capsule 5 11/19/2022 oxybutynin CR 24hr (Ditropan-XL) 5 MG tablet [...] A DAY 60 capsule 11 02/22/2022 05/28/2023 JZAFUYK-[id number]-GVMJ PO Take by mouth once daily 06/13/2023 [...] NOSTRIL EVERY DAY 48 g 02/22/2023 06/01/2023 ZWFNLE-EDGIFCANI-DHL-C-H YAL PO Take 1 tablet by mouth [...] st Contact Info) Description 07/25/2024 10:00 AM POWER SUPPLY ENGINEER Office Visit [facility] - Endocrinology [address] [place] [phone] Yosi Bustamante MD [address] [place] [address] 2L [place] [address] 07/26/2024 10:00 AM POWER SUPPLY ENGINEER Appointment [facility] DI[facility] RAD [address] [place] [address] Neri Delgado MD [address] [place] [address] 07/26/2024 10:00 AM POWER SUPPLY ENGINEER Office Visit [facility] - ENT [address] [place] [phone] Myra Farmer, SONAR TECHNICIAN [address] [place] [address] 2L [place] [phone] 07/26/2024 11:15 AM POWER SUPPLY ENGINEER Office Visit [facility] - ENT [address] [place] [phone] Neri Delgado MD [address] [place] [address] 08/02/2024 2:20 PM POWER SUPPLY ENGINEER Appointment [facility] [address] [place] [address] 08/02/2024 3:00 PM POWER SUPPLY ENGINEER Office Visit [facility] - Hematology/Oncology [address] [place] [phone] Remi Beckett MD [address] [place] [address] 08/18/2024 1:45 PM POWER SUPPLY ENGINEER Office Visit [facility] - ENT [address] [place] [address] Neri Delgado MD [address] [place] [address] documented as of this encounter Procedures Procedure Name Priority Date/Time Associated Diagnosis Comments MRI CERVICAL SPINE WWO CONT Routine 03/25/2023 12:55 PM CDT Cervical spine tumor Cancer, metastatic to bone (HCC) Thyroid cancer (HCC) CREATININE - POCT INTERFACED Routine 03/25/2023 12:24 PM CDT documented in this encounter Results * MRI CERVICAL SPINE WWO CONT (03/25/2023 12:55 PM CDT) Anatomical Region Laterality Modality Spine Magnetic Resonan ce 03/25/2023 2:07 PM CDT Impressions 03/26/2023 2:43 PM CDT IMPRESSION: 1.Redemonstration of postoperative findings of C3-C7 decompressive laminectomy for partial resection of the extramedullary spinal tumor, and C2-T2 posterior instrumented fusion, with postsurgical changes as outlined above. Minimal soft tissue enhancement in the laminectomy bed with interval resolution of the previously seen fluid collection in the laminectomy bed, compatible with expected postsurgical change. 2.Redemonstration of satisfactory decompression of the spinal canal with residual tumor in the left C4-C5, C5-C6, and C6-C7 neural foramina, similar or perhaps mildly decreased compared to the prior, as outlined above. Continued attention on follow-up is recommended.. > Dictated by Sukhwinder Quevedo MD (resident) Shelli Mckeon MD have personally reviewed and interpreted this examination/study. > Interpreting Provider: Shelli Escamilla MD on 03/26/2023 2:43 PM Narrative 03/26/2023 2:43 PM CDT PROCEDURE: ??MRI CERVICAL SPINE WWO CONT, DATE/TIME OF EXAM: ??03/25/2023 12:55 PM, LOCATION ??[facility] INDICATION: D49.2: Cervical spine tumor C79.51: Cancer, metastatic to bone (CMS/HCC) C73: Thyroid cancer (CMS/HCC) ADDITIONAL CLINICAL INFORMATION: Ordering Provider Reason For Exam: ??eval for changes Technologist Note: ??Does the patient have a defibrillator, pacemaker, aneurysm clips or implanted mechanical devices?->No Does the patient have metal implants or stents?->No Additional: ??None. CONTRAST: ??GADOBUTROL 1 MMOL/ML IV SSM SO:6 mL ??TECHNIQUE: MRI of the cervical spine was performed prior to and following the uneventful administration of 6 mL intravenous gadolinium contrast according to standard protocol. COMPARISON: MRI cervical spine with and without contrast 12/24/2022. FINDINGS: Redemonstration of postoperative findings of C3-C7 decompressive laminectomy for resection of the extramedullary spinal tumor seen on the prior with C2-T2 posterior instrumented fusion with expected postsurgical changes similar to the prior. Blooming artifact from the hardware limits evaluation. Previously seen fluid collection the deep subcutaneous soft tissues at midline has been resolved. Residual enhancing soft tissues are again noted in the left C5-C6 neural foramen extending to the extraforaminal compartment measuring approximately 2.1 x 0.9 cm (series 7 image 23), previously measured approximately 2.4 x 1.2 cm, (series 10, image 23 on the prior), mildly decreased compared to the prior. Residual enhancing soft tissue enhancement in the left C6-C7 neural foramen measures approximately 1.1 x 1.2 cm, (series 7, image 26), previously measured approximately 1.4 x 1.3 cm, (series 10, image 27 on the prior), similarly, slightly decreased compared to the prior. There is persistent encasement of the left vertebral artery (series 7 image 21). The remaining findings appear grossly similar to the prior as follows: Mild retrolisthesis of C4 on C5. Mild anterolisthesis of C7 on T1. The alignment is otherwise maintained. Vertebral bodies are normal in height without evidence of compression fractures. Redemonstration of abnormal STIR signal involving the posterior aspect of C5 and C6 that correlates with lytic and sclerotic lesion seen on the prior CT from 01/28/2022. Marrow signal intensity of the remaining cervical spine appears unremarkable and grossly stable. The craniocervical junction and visualized portions of the posterior fossa appear normal. The spinal cord appears grossly stable. Minimal enhancement along the ventral aspect of the thecal sac, (series 6, image 9), nonspecific although attention on follow-up is recommended. The spinal cord appears otherwise grossly stable. There is mild disc height loss at multiple levels. Normal flow voids are identified in the vertebral arteries. C2-3: There is no disc bulge. There is no central canal stenosis. There is no facet osteoarthritis. There is no uncovertebral joint osteoarthritis. There is no neural foraminal stenosis. C3-4: There is minimal disc bulge. There is no central canal stenosis. There is no facet osteoarthritis. There is no uncovertebral joint osteoarthritis. There is no neural foraminal stenosis. C4-5: There is mild disc bulge. There is no central canal stenosis. There is mild to moderate facet osteoarthritis. There is moderate uncovertebral joint osteoarthritis. There is severe right and moderate left neural foraminal stenosis. Soft tissue enhancement in the left neural foramen as mentioned above. C5-6: There is mild disc bulge. There is no central canal stenosis. There is mild facet osteoarthritis. There is mild uncovertebral joint osteoarthritis. There is mild right and severe left neural foraminal stenosis. Soft tissue enhancement in the left neural foramen as mentioned above. C6-7: There is diffuse disc bulge with a superimposed small central disc protrusion. There is no central canal stenosis. There is mild facet osteoarthritis. There is mild uncovertebral joint osteoarthritis. There is moderate right and severe left neural foraminal stenosis. Soft tissue enhancement in the left neural foramen as outlined above. C7-T1: There is no disc bulge. There is no central canal stenosis. There is mild facet osteoarthritis. There is mild uncovertebral joint osteoarthritis. There is up to moderate bilateral neural foraminal stenosis. Procedure Note Shelli Escamilla MD - 03/26/2023 PROCEDURE: MRI CERVICAL SPINE WWO CONT, DATE/TIME OF EXAM: 03/25/2023 12:55 PM, LOCATION [facility] INDICATION: D49.2: Cervical spine tumor C79.51: Cancer, metastatic to bone (CMS/HCC) C73: Thyroid cancer (CMS/[facility]) ADDITIONAL CLINICAL INFORMATION: Ordering Provider Reason For Exam: eval for changes Technologist Note: Does the patient have a defibrillator, pacemaker, aneurysm clips or implanted mechanical devices?->No Does the patienthave metal implants or stents?->No Additional: None. CONTRAST: GADOBUTROL 1 MMOL/ML IV SSM SO:6 mL TECHNIQUE: MRI of the cervical spine was performed prior to andfollowing the uneventful administration of 6 mL intravenous gadolinium contrast according to standard protocol. COMPARISON: MRI cervical spine with and without contrast 12/24/2022. FINDINGS: Redemonstration of postoperative findings of C3-C7 decompressive laminectomy for resection of the extramedullary spinal tumor seen on the prior with C2-T2 posterior instrumented fusion with expectedpostsurgical changes similar to the prior. Blooming artifact from the hardware limits evaluation. Previously seen fluid collection the deep subcutaneous soft tissues at midline has been resolved. Residual enhancing soft tissues are again noted in the left C5-C6 neural foramen extending to the extraforaminal compartment measuringapproximately 2.1 x 0.9 cm (series 7 image 23), previously measured approximately 2.4x 1.2 cm, (series 10, image 23 on the prior), mildly decreased compared to the prior. Residual enhancing soft tissue enhancement in the left C6-C7 neuralforamen measures approximately 1.1 x 1.2 cm, (series 7, image 26), previously measured approximately 1.4 x 1.3 cm, (series 10, image 27 on the prior), similarly, slightly decreased compared to the prior. There is persistent encasement of the left vertebral artery (series 7 image 21). The remaining findings appear grossly similar to the prior as follows: Mild retrolisthesis of C4 on C5. Mild anterolisthesis of C7 on T1. The alignment is otherwise maintained. Vertebral bodies are normal in height without evidence of compression fractures. Redemonstration of abnormalSTIR signal involving the posterior aspect of C5 and C6 that correlates with lytic and sclerotic lesion seen on the prior CT from 01/28/2022. Marrow signal intensity of the remaining cervical spine appears unremarkableand grossly stable. The craniocervical junction and visualized portions ofthe posterior fossa appear normal. The spinal cord appears grossly stable. Minimal enhancement along the ventral aspect of the thecal sac, (series6, image 9), nonspecific although attention on follow-up is recommended.The spinal cord appears otherwise grossly stable. There is mild disc height loss at multiple levels. Normal flow voids are identified in thevertebral arteries. C2-3: There is no disc bulge. There is no central canal stenosis. Thereis no facet osteoarthritis. There is no uncovertebral joint osteoarthritis. There is no neural foraminal stenosis. C3-4: There is minimal disc bulge. There is no central canal stenosis. There is no facet osteoarthritis. There is no uncovertebral joint osteoarthritis. There is no neural foraminal stenosis. C4-5: There is mild disc bulge. There is no central canal stenosis.There is mild to moderate facet osteoarthritis. There is moderateuncovertebral joint osteoarthritis. There is severe right and moderate left neural foraminal stenosis. Soft tissue enhancement in the left neural foramenas mentioned above. C5-6: There is mild disc bulge. There is no central canal stenosis.There is mild facet osteoarthritis. There is mild uncovertebral joint osteoarthritis. There is mild right and severe left neural foraminal stenosis. Soft tissue enhancement in the left neural foramen asmentioned above. C6-7: There is diffuse disc bulge with a superimposed small central disc protrusion. There is no central canal stenosis. There is mild facet osteoarthritis. There is mild uncovertebral joint osteoarthritis. Thereis moderate right and severe left neural foraminal stenosis. Soft tissue enhancement in the left neural foramen as outlined above. C7-T1: There is no disc bulge. There is no central canal stenosis. Thereis mild facet osteoarthritis. There is mild uncovertebral joint osteoarthritis. There is up to moderate bilateral neural foraminal stenosis. IMPRESSION: 1.Redemonstration of postoperative findings of C3-C7 decompressive laminectomy for partial resection of the extramedullary spinal tumor,and C2-T2 posterior instrumented fusion, with postsurgical changes asoutlined above. Minimal soft tissue enhancement in the laminectomy bed withinterval resolution of the previously seen fluid collection in the laminectomybed, compatible with expected postsurgical change. 2.Redemonstration of satisfactory decompression of the spinal canal with residual tumor in the left C4-C5, C5-C6, and C6-C7 neural foramina,similar or perhaps mildly decreased compared to the prior, as outlined above. Continued attention on follow-up is recommended.. > Dictated by Sukhwinder Quevedo MD (resident) Shelli Mckeon MD have personally reviewed and interpretedthis examination/study. > Interpreting Provider: Shelli Escamilla MD on 03/26/2023 2:43 PM Marcio Mcintosh MD MR ORDERABLES * (ABNORMAL) CREATININE - POCT INTERFACED (03/25/2023 12:24 PM CDT) Creatinine POCT 0.88 0.30 - 1.30 mg/dL 03/25/2023 12:27 PM CDT [facility] eGFR 73(L) >90 mL/min/1.7 3 m2 03/25/2023 12:27 PM CDT [facility] Blood BLOOD SPECIMEN / Unknown 03/25/2023 12:24 PM CDT 03/25/2023 12:26 PM CDT Marcio Mcintosh MD LAB - POINT OF CARE ORDERABLES Performing Organization Address City/State/[facility] Co de Phone Number [facility] [address] [place] [address], [facility] [phone] documented in this encounter Visit Diagnoses Diagnosis Cervical spine tumor Neoplasm of unspecified nature of bone, soft tissue, and skin Cancer, metastatic to bone (HCC) Secondary malignant neoplasm of bone and bone marrow Thyroid cancer (HCC) Malignant neoplasm of thyroid gland documented in this encounter Administered Medications Inactive Administered Medications - up to 3 most recent administrations Medication Order MAR Action Action Date Dose Rate Site gadobutrol (Gadavist) injection Intravenous, CONTRAST ONCE, Starting on Josi 03/25/23 at 1234, Until Wed03/26/23 at 0136 $ Given - Contrast 03/25/2023 12:43 PM CDT 6 mL documented in this encounter Care Teams Cottage Supervisor Relationship Specialty Start Date End Date Joseph Manzanares MD [address] [place] [phone] PCP - General Internal Medicine 10/07/22 04/20/23 Tiana Naylor DO [address] [place] [address]?? [place] [address] Resident - PCP Internal Medicine 01/13/23 04/20/23 documented as of this encounter
--- OUTSIDE RECORDS SUMMARY | 2024-07-23 07:09 | XMS_ITS | Encounter Summary ---
Author Organization [facility] Health Address [address] [facility] [place] [address] Care Team Providers Care Business Architect Name Role Phone Joseph Manzanares MD Unavailable Yaya Villatoro MD Primary Care Provider [phone] Reason for Visit * Reason Comments Med Change Request Encounter Details Date Type Department Care Team (Late st Contact Info) Description 05/31/2023 Refill [facility] - Internal Med [address] [facility] [place] [phone] Tiana Naylor, DO [address] [facility]?? [place], [place] [phone] Med Change Request Social History Tobacco Use Types Packs/Day [...] Date Recorded PHQ2 TOTAL SCORE 1 11/25/2022 [facility] [place] of Occupat ional Health - Occupational Stress [...] encounter Miscellaneous Notes * Telephone Encounter - Mady Jalloh RN - 05/31/2023 2:45 PM GLUE COOK Refill Request ELE:11/25/2022 NOV scheduled: 06/09/2023 LRF: 02/22/2023 Qty Disp: 48g # of refills: 0 Allergies: Allergies Allergen Reactions ??? Kiwi Extract Anaphylaxis Pended Medication Order: Requested Prescriptions Pending Prescriptions Disp Refills ??? fluticasone propionate (Flonase) 50 MCG/ACT nasal spray [Pharmacy Med Name: FLUTICASONE PROP 50MCG SPRAY] 1 Sig: SPRAY 2 SPRAYS INTO EACH NOSTRIL EVERY DAY COOK documented in this encounter Plan of Treatment Upcoming Encounters Date Type Department Care Team (Late st Contact Info) Description 07/25/2024 10:00 AM GLUE COOK Office Visit [facility] - Endocrinology [address] [place] [phone] Yosi Bustamante MD [address] [place] [address] of [place] [address] 07/26/2024 10:00 AM GLUE COOK Appointment [facility] [address] [place] [phone] Neri Delgado MD [address] [place] [address] 07/26/2024 10:00 AM GLUE COOK Office Visit [facility] - ENT [address] [place] [phone] Myra Farmer, MANAGED CARE ANALYST [address] [place] [address] [place] [phone] 07/26/2024 11:15 AM GLUE COOK Office Visit [facility] - ENT [address] [place] [phone] Neri Delgado MD [address] [place] [address] 08/02/2024 2:20 PM GLUE COOK Appointment [facility] [address] [place] [address] 08/02/2024 3:00 PM GLUE COOK Office Visit [facility] - Hematology/Oncology [address] [place] [phone] Remi Beckett MD [address] [place] [phone] 08/18/2024 1:45 PM GLUE COOK Office Visit [facility] - ENT [address] [place] [phone] Neri Delgado MD [address] [place] [phone] documented as of this encounter Visit Diagnoses Diagnosis Allergic rhinitis, unspecified seasonality, unspecified trigger documented in this encounter Care Teams Business Architect Relationship Specialty Start Date End Date Yaya Villatoro MD [address] [place] [phone] PCP - General Internal Medicine 05/04/23 Joseph Manzanares MD [address] [place] [phone] Internal Medicine 04/21/23 documented as of this encounter
--- OUTSIDE RECORDS SUMMARY | 2024-07-23 07:09 | XMS_ITS | Encounter Summary ---
Author Organization [facility] Health Address [address] [address] Care Team Providers Care Child Care Supervisor Name Role Phone Joseph Manzanares MD Unavailable Yaya Villatoro MD Primary Care Provider [phone] Encounter Details Date Type Department Care Team (Latest Contact Info) Description 10/18/2023 1:02 PM CDT - 10/18/2023 11:59 PM CDT Hospital Encounter [facility] [place], [place] [phone] Marcio Mcintosh MD [address] [place], [place] [phone] Discharge Disposition: Home or Self Care Social [...] Recorded PHQ2 TOTAL SCORE 1 11/25/2022 [facility] of Occupat ional Health - Occupational Stress [...] Sign Reading Time Taken Comments Blood Pressure 125/77 10/18/2023 1:55 PM CDT Pulse 81 10/18/2023 1:55 PM CDT Temperature 36.2 ??C (97.2 ??F) 10/18/2023 1:55 PM CD T Respiratory Rate 18 10/18/2023 1:55 PM CDT Oxygen Saturation 98% 10/18/2023 1:55 PM CDT Inhaled Oxygen Concentration - - Weight 64.2 kg (141 lb 9.6 oz) 10/18/2023 1:55 P M CDT Height - - Body Mass Index 25.9 08/06/2023 2:26 PM POLICE LIAISON documented in this encounter Functional Status Functional [...] naloxone HCl (Narcan) 4 MG/0.1ML nasal spray Monroe 1 (one) spray into the nose as [...] dose 1 mL 06/14/2023 10/25/2023 HYDROcodone-acetamino phen ([place]) 5-325 MG tabletIndications:Cer vical spine tumor,Cancer, metastatic [...] 06/14/2023 10/25/2023 documented as of this encounter Progress Notes * Marcio Mcintosh MD - 10/18/2023 3:15 PM CDT Images from the original note were not included. On Treatment Patient Visit Department of Radiation Oncology [facility] ENCOUNTER DATE: 10/18/2023 PATIENT IDENTIFICATION Brisa Hogan 1960 Autopopulated Diagnosis: 1. Cancer, metastatic to bone (HCC) Radiation Dose: Brisa has received 600cGy in 1 fractions of planned 5 fractions. Chemotherapy: Patient is NOT receiving concurrent chemotherapy. [facility] / [facility]: All images reviewed and approved for the week SUBJECTIVE: Ms. Brisa Hogan is a 63 year old female who presents for an on treatment visit. Brisa has felt continued pains in her neck but are lessened with pain medication. She is without any new neurologic findings of incontinence or lower extremity weakness. Radiation Oncology Nursing Assessement 10/18/2023 Education: Karnofsky ECOG Score: Karnofsky ECOG Score: [place] 80- Normal activity with effort, some sign of symptoms of disease/ECOG 1-Restricted in physically strenuous activity but ambulatory and able to carry out work of a light or sedentary nature Treatment Sites: Treatment Sites: (CT spine) System Assessment: Pain: Pain: Yes (Chronic neck pain radiate to R arm. Chronic L arm. and L hip. Pain meds 2-3x/day, #8-9 intensity between shoulder blade radiate R arm usually in am) Nausea: Nausea: No Fatigue: Fatigue: Yes Sleep: Sleep: No Mobility: Mobility: Yes (Transporting per walker) Bathing/Dressing: Bathing/Dressing: No Breathing: Breathing: No Mouth Sores: Mouth Sores: No Eating: Eating: No Indigestion: Indigestion: No Constipation: Constipation: No Diarrhea: Diarrhea: No Changes in Urination: Changes in urination: No Fevers: Fevers: No Skin Dry/Itchy: Skin dry/itchy: No Nasal: Nasal: Yes (Intermittent clear runny nose r/t allergies) Hands/Feet: Tingling in hands/feet: Yes (R arm /hand numbness/weakness. Inability to use R hand) Memory/Concentration: Memory/concentation: No Swelling: Swelling: No Appearance: Appearance: No Sexual: Mucous Membrances: Eye: Ears: Salivary Glands: Salivary Glands: 0-no exchange operator baseline Pharynx and Esophagus: Pharynx and Esophagus: 0-No exchange operator baseline Larynx: Larynx: 0-No change in baseline Upper GI: Upper GI: 0-no exchange operator baseline Lower GI including pelvis: Lower GI including pelvis: 0-No exchange operator baseline Lungs: Lungs: 0-No exchange operator baseline Other: MEDICATIONS: Current Outpatient Medications: ??? albuterol HFA (Proventil; Ventolin; Proair) 108 (90 Base) MCG/ACT inhaler, Inhale 2 (two) puffsby mouth every 6 hours as needed, Disp: , Rfl: ??? atorvastatin (Lipitor) 40 MG tablet, TAKE 1 TABLET BY MOUTH EVERYDAY AT BEDTIME, Disp: 90 tablet, Rfl: 1 ??? buPROPion SR 12hr (Wellbutrin-SR) 100 MG tablet, Take 1 (one) tablet by mouth 2 times daily, Disp: , Rfl: ??? calcitriol (Rocaltrol) 0.5 MCG capsule, Take 1 (one) capsule by mouth once daily Reasons: Low Amount of Calcium in the Blood, Disp: 90 capsule, Rfl: 3 ??? celecoxib (CeleBREX) 200 MG capsule, Take 1 (one) capsule by mouth once daily, Disp: 90 capsule, Rfl: 3 ??? cyclobenzaprine (Flexeril) 5 MG tablet, Take 1 (one) tablet by mouth 3 times daily as needed, Disp: 90 tablet, Rfl: 1 ??? denosumab (Prolia) 60 MG/ML SC injection, Inject 1 mL subcutaneously once for 1 dose, Disp: 1 mL, Rfl: 0 ??? famotidine (PEPCID) 20 MG tablet, Take 1 (one) tablet by mouth 2 times daily as needed, Disp: ,Rfl: ??? fluticasone propionate (Flonase) 50 MCG/ACT nasal spray, SPRAY 2 SPRAYS INTO EACH NOSTRIL EVERYDAY, Disp: 16 g, Rfl: 1 ??? gabapentin (Neurontin) 300 MG capsule, Take 1 (one) capsule by mouth 3 times daily, Disp: 90 capsule, Rfl: 5 ??? HYDROcodone-acetaminophen (Brooklyn) 5-325 MG tablet, Take 1 (one) tablet by mouth every 8 hours as needed for Pain, Disp: 12 tablet, Rfl: 0 ??? hydrOXYzine HCl (Atarax) 25 MG tablet, Take 1 (one) tablet to 2 (two) tablets by mouth as needed, Disp: , Rfl: ??? levothyroxine (Synthroid) 112 MCG tablet, Take 1 (one) tablet by mouth daily before breakfast Except Wednesday take one and a half pills Reasons: Cancer of Thyroid, Underactive Thyroid, Disp: 100 tablet, Rfl: 3 ??? naloxone HCl (Narcan) 4 MG/0.1ML nasal spray, Monroe 1 (one) spray into the nose as needed, Disp: , Rfl: ??? oxybutynin CR 24hr (Ditropan-XL) 5 MG tablet, Take 1 (one) tablet by mouth once daily, Disp: 90tablet, Rfl: 4 ??? pantoprazole EC (Protonix) 40 MG tablet, TAKE ONE TABLET BY MOUTH ONCE DAILY FOR STOMACH, Disp:90 tablet, Rfl: 0 ??? PARoxetine (PAXIL) 40 MG tablet, Take 1 (one) tablet by mouth once daily, Disp: , Rfl: 2 ??? traZODone (DESYREL) 50 MG tablet, Take 1 (one) tablet by mouth at bedtime, Disp: , Rfl: OBJECTIVE: Vitals: 10/18/23 1355 BP: 125/77 Pulse: 81 Resp: 18 Temp: 97.2 ??F SpO2: 98% Weight: 64.2 kg (141 lb 9.6 oz) PainSc: Zero Wt Readings from Last 3 Encounters: 10/18/23 64.2 kg (141 lb 9.6 oz) 10/11/23 64.3 kg (141 lb 12.8 oz) 08/06/23 64.7 kg (142 lb 9.6 oz) KPS is 70 Anicteric alert Skin is intact Ambulates with walker LABORATORY: Lab results smartLinks are not currently available Recent Labs Component Name 10/07/22 0012 WBC 8.1 Recent Labs Component Name 09/09/23 1343 POTASSIUM 3.7 CO2 24 BUN 15 CREATININE 0.80 GLUCOSE 103 Recent Labs Component Name 10/02/22 1259 INR 1.0 IMPRESSION/PLAN Brisa Hogan was advised to continue radiation therapy. She is advised of future consultation with Medical Oncology for systemic therapy. She is also advised of attempt to cover maximum number of sites of disease palliatively. Marcio Mcintosh MD 10/18/2023 3:15 PM Detailed Radiation Delivery (All): Radiation Treatments Active Plans #CSpineRetx Most recent treatment: Dose planned: -- (fraction 1 on 10/18/2023) Total: Dose planned: 3,000 cGy (5 fractions) Elapsed Days: -- Reference Points GTV1 Most recent treatment: Dose given: 600 cGy (on 10/18/2023) Total: Dose given: 600 cGy Elapsed Days: -- Historical Plans #CSpine Most recent treatment: Dose planned: -- (fraction 2 on 09/21/2022) Total: Dose planned: 2,400 cGy (2 fractions) Elapsed Days: -- Reference Points PTV1 Most recent treatment: Dose given: 1,200 cGy (on 09/21/2022) Total: Dose given: 2,400 cGy Elapsed Days: -- documented in this encounter Plan of Treatment Upcoming Encounters Date Type Department Care Team (Late st Contact Info) Description 07/25/2024 10:00 AM POLICE LIAISON Office Visit [facility] - Endocrinology [address] [place] [address], [place] [phone] Yosi Bustamante MD [address] [place] [address] [place] [address] 07/26/2024 10:00 AM POLICE LIAISON Appointment [facility] RAD [address] [place] [phone] Neri Delgado MD [address] [place] [phone] 07/26/2024 10:00 AM POLICE LIAISON Office Visit [facility] - ENT [address] [place] [phone] Myra Farmer, LABORER [place] [address] [place] [address] [place] [phone] 07/26/2024 11:15 AM POLICE LIAISON Office Visit [facility] - ENT [address] [place] [phone] Neri Delgado MD [address] [place] [phone] 08/02/2024 2:20 PM POLICE LIAISON Appointment [facility] [address] [place] [phone] 08/02/2024 3:00 PM POLICE LIAISON Office Visit [facility] - Hematology/Oncology [address] [place] [phone] Remi Beckett MD [address] [place] [phone] 08/18/2024 1:45 PM POLICE LIAISON Office Visit [facility] - ENT [address] [place] [phone] Neri Delgado MD [address] [place] [phone] documented as of this encounter Visit Diagnoses Diagnosis Cancer, metastatic to bone (HCC)- Primary Secondary malignant neoplasm of bone and bone marrow documented in this encounter Care Teams Child Care Supervisor Relationship Specialty Start Date End Date Yaya Villatoro MD [address] [place] [phone] PCP - General Internal Medicine 05/04/23 Joseph Manzanares MD [address] [place] [address] [place] [phone] Internal Medicine 04/21/23 documented as of this encounter
--- OUTSIDE RECORDS SUMMARY | 2024-07-23 07:09 | XMS_ITS | Encounter Summary ---
Author Organization [facility] Health Address [address] [place] [address] Care Team Providers Care Project Coordinator Name Role Phone Joseph Manzanares MD Unavailable Yaya Villatoro MD Primary Care Provider [phone]- [phone] Reason for Referral * Evaluate & Treat (Routine) - Closed Specialty Diagnoses / Procedures Referred By Yuan robins Referred To Contact Oncology-Medical Diagnoses Thyroid cancer (HCC) Neri Delgado MD [address] [place] [phone] MD [address] [place] [phone] Referral ID Status Reason Start Date Expiration Date V isits Requested Visits Authorized [id number] Closed Specialty Services Required 10/14/2023 10/13/2024 1 1 Encounter Details Date Type Department Care Team (Late st Contact Info) Description 10/14/2023 Orders Only [facility] - ENT [address] [place] [phone] Neri Delgado MD [address] [place] [phone] Thyroid cancer (HCC) Social History Tobacco Use Types Packs/Day [...] Date Recorded PHQ2 TOTAL SCORE 1 11/25/2022 [facility] [place] of Occupat ional Health - Occupational Stress [...] st Contact Info) Description 07/25/2024 10:00 AM APPLICATION ENGINEER Office Visit [facility] - Endocrinology [address] [place] [phone] Yosi Bustamante MD [address] [place] [address] [place] [address] 07/26/2024 10:00 AM APPLICATION ENGINEER Appointment [facility] DIAG[facility] RAD [address] [place] [phone] Neri Delgado MD [address] [place] [address] 07/26/2024 10:00 AM APPLICATION ENGINEER Office Visit [facility] - ENT [address] [place] [phone] Myra Farmer, EDITORIAL MANAGER [address] [place] [address] [place] [phone] 07/26/2024 11:15 AM APPLICATION ENGINEER Office Visit [facility] - ENT [address] [place] [phone] Neri Delgado MD [address] [place] [address] 08/02/2024 2:20 PM APPLICATION ENGINEER Appointment [facility] [address] [place] [phone] 08/02/2024 3:00 PM APPLICATION ENGINEER Office Visit [facility] - Hematology/Oncology [address] [place] [phone] Remi Beckett MD [address] [place] [phone] 08/18/2024 1:45 PM APPLICATION ENGINEER Office Visit [facility] - ENT [address] [place] [phone] Neri Delgado MD [address] [place] [phone] Scheduled Referrals Name Type Priority Associated Diagnoses Order Schedule AMB REFERRAL TO HEMATOLOGY ONCOLOGY Outpatient Referral Routine Thyroid cancer (HCC) 1 Occurrences starting 10/14/2023 until 10/13/2024 documented as of this encounter Visit Diagnoses Diagnosis Thyroid cancer (HCC)- Primary Malignant neoplasm of thyroid gland documented in this encounter Care Teams Project Coordinator Relationship Specialty Start Date End Date Yaya Villatoro MD [address] [place] [phone] PCP - General Internal Medicine 05/04/23 Joseph Manzanares MD [address] [place] [phone] Internal Medicine 04/21/23 documented as of this encounter
--- OUTSIDE RECORDS SUMMARY | 2024-07-23 07:09 | XMS_ITS | Encounter Summary ---
Author Organization [facility] Address [address] [place] [address] Care Team Providers Care Railroad Car Checker Name Role Phone Joseph Manzanares MD Unavailable Yaya Villatoro MD Primary Care Provider [phone]- [phone] Reason for Referral * Consultation (Routine) - Pending Review Specialty Diagnoses / Procedures Referred By Yuan robins Referred To Contact Diagnoses Cervical spine tumor Cancer, metastatic to bone (HCC) Thyroid cancer (HCC) Malignant tumor of thyroid gland (HCC) Secondary malignant neoplasm of bone (HCC) Marcio Mcintosh MD [address] [place] [address] Referral ID Status Reason Start Date Expiration Date Visits Requested Visits Authorized [id number] Pending Review Specialty Services Required 10/11/2023 10/10/2024 99 99 * Radiology Services (Routine) - Closed Specialty Diagnoses / Procedures [facility]erred By [facility] Referred To Contact Diagnoses Cervical spine tumor Cancer, metastatic to bone (HCC) Thyroid cancer (HCC) Malignant tumor of thyroid gland (HCC) Secondary malignant neoplasm of bone (HCC) Procedures CT RAD THERAPY WO CONTRAST Marcio Mcintosh MD [address] [place] [address] [facility] [address] [place] [phone] Referral ID Status Reason Start Date Expiration Date Visits Re quested Visits Authorized [id number] Closed 10/18/2023 01/16/2024 1 1 Encounter Details Date Type Department Care Team (Latest Contact Info) Description 10/11/2023 3:00 PM CDT - 10/11/2023 11:59 PM CDT Hospital Encounter [facility] [address] [place], [place] [phone] Marcio Mcintosh MD [address] [place] [address] Discharge Disposition: Home or Self [...] Date Recorded PHQ2 TOTAL SCORE 1 11/25/2022 [facility] [place] of Occupat ional Health - Occupational Stress [...] Sign Reading Time Taken Comments Blood Pressure 155/86 10/11/2023 3:25 PM CDT Pulse 84 10/11/2023 3:25 PM CDT Temperature 36.4 ??C (97.5 ??F) 10/11/2023 3:25 PM CD T Respiratory Rate 18 10/11/2023 3:25 PM CDT Oxygen Saturation 95% 10/11/2023 3:25 PM CDT Inhaled Oxygen Concentration - - Weight 64.3 kg (141 lb 12.8 oz) 10/11/2023 3:25 PM CDT Height - - Body Mass Index 25.94 08/06/2023 2:26 PM TRAFFIC SIGN ERECTION SUPERVISOR documented in this encounter Functional Status Functional [...] naloxone HCl (Narcan) 4 MG/0.1ML nasal spray Silvis 1 (one) spray into the nose as [...] dose 1 mL 06/14/2023 10/25/2023 HYDROcodone-acetamino phen (Smiley) 5-325 MG tabletIndications:Cer vical spine tumor,Cancer, metastatic [...] Progress Notes * Marcio Mcintosh MD - 10/11/2023 3:39 PM CDT Images from the original note were not included. Return Patient Visit Department of Radiation Oncology [facility] ENCOUNTER DATE: 10/11/2023 PATIENT IDENTIFICATION Brisa Hogan 1960 Autopopulated Data Chief Complaint: No chief complaint on file. Diagnosis: 1. Cervical spine tumor 2. Cancer, metastatic to bone (HCC) 3. Thyroid cancer (CMS/HCC) 4. Malignant tumor of thyroid gland (HCC) 5. 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 Referring MD: Point Of Care Specialist:?Yosi Bustamante MD ENT Surgeon: ??Neri Delgado MD NeuroSurgeon:?MD Yaya Cui MD PAST DISEASE HISTORY: Brisa [...] event and was planned for future surgery. ?? Brisa??has underwent surgical stabiliation and decompression on 10/02/2022. She still has??Limited use of the left arm. ??She has went to physical therapy for muscle strengthening. SUBJECTIVE/HPI: Ms. Brisa Hogan is a 63 year old female who returns for a follow up visit. Since our last visit, Brisa has returned with some unfortunate news of the passing of her family members including her . She has reported only because of increasing pain in the left arm and right neck. She denies any urinary or bowel incontinence. She is with a friend for discussion and noting the increases in thyroglobulin. REVIEW OF SYSTEMS: GENERAL: Denies Headaches, nausea, vomiting PULMONARY: Denies cough or worsened shortness of breath NEUROLOGIC: Denies new neurologic deficit or weakness/loss of motion in arms or legs I have also reviewed the nursing assessment flowsheet below: Radiation Oncology Nursing Assessement 10/11/2023 Education: Karnofsky ECOG Score: Karnofsky ECOG Score: [place] 80- Normal activity with effort, some sign of symptoms of disease/ECOG 1-Restricted in physically strenuous activity but ambulatory and able to carry out work of a light or sedentary nature Treatment Sites: System Assessment: Pain: Pain: No (Intermittent neck pain radiate to bilateral shoulder a 2 wks, Chronic intermittent L hip and L arm) Nausea: Nausea: No Fatigue: Fatigue: Yes (Low., recent lost of and mother) Sleep: Sleep: No Mobility: Mobility: Yes (Transporting per walker) Bathing/Dressing: Bathing/Dressing: No Breathing: Breathing: No Mouth Sores: Mouth Sores: No Eating: Eating: No Indigestion: Indigestion: No Constipation: Constipation: No Diarrhea: Diarrhea: No Changes in Urination: Changes in urination: No Fevers: Fevers: No Skin Dry/Itchy: Skin dry/itchy: No Nasal: Nasal: Yes (Hx of allergies,. Occassional clear runny nose) Hands/Feet: Tingling in hands/feet: Yes (R arm/hand numbness x 2 weeks. Decrease uasge of R hand) Memory/Concentration: Memory/concentation: No Swelling: Swelling: [...] Thyroid cancer (HCC) 10/14/2020 ??? Tracheal mass MEDICATIONS: Current Outpatient [...] naloxone HCl (Narcan) 4 MG/0.1ML nasal spray Silvis 1 (one) spray into the nose as [...] facility-administered medications for this encounter. OBJECTIVE: Vitals: 10/11/23 1525 BP: 155/86 Pulse: 84 Resp: 18 Temp: 97.5 ??F SpO2: 95% Weight: 64.3 kg (141 lb 12.8 oz) PainSc: Zero Wt Readings from Last 3 Encounters: 10/11/23 64.3 kg (141 lb 12.8 oz) 08/06/23 64.7 kg (142 lb 9.6 oz) 06/14/23 65.8 kg (145 lb) KPS is 70 General Appearance: in no apparent distress, well developed and well nourished, alert, anicteric and cooperative HEENT: Normocephalic, atraumatic Lymph: No adenopathy of the cervical or supraclavicular fossa visible Back: There is no costovertebral angle or spinal tenderness to percussion. Except a tht eare aof the cervical spine and limited Turning of her neck. Extremities:extremities normal, atraumatic, no cyanosis or edema Neurological exam reveals alert, oriented, normal speech, no focal findings or movement disorder noted, normal muscle tone, no tremors, strength in UE and LE 4/5. RADIOGRAPHIC IMAGES: PET CT WHOLE BODY Result Date: 10/06/2023 [...] Report dictated by Froylan Ny DO (radiology manager). > Dictated by Froylan Ny DO (Applied Behavior Science Specialist) 10/06/2023 3:25 PM Tiesha Mckeon DO have personally reviewed [...] 2.5-3.5. Sodium Date Value Ref Range Status 09/09/2023 139 136 - 145 mmol/L Final Chloride Date Value Ref Range Status 09/09/2023 104 98 - 107 mmol/L Final BUN Date Value Ref Range Status 09/09/2023 15 7 - 26 mg/dL Final Creatinine Date Value Ref Range Status 09/09/2023 0.80 0.56 - 0.96 mg/dL Final TSH Date Value Ref Range Status 09/09/2023 0.010 (L) 0.350 - 4.940 uIU/mL Final Latest Reference Range & Units 01/20/23 12:43 06/10/23 12:29 09/09/23 13:43 TSH 0.350 - 4.940 uIU/mL <0.010 (L) <0.010 (L) 0.010 (L) T4 Free 0.7 - 1.5 ng/dL 1.6 (H) 1.4 Thyroglobulin by ANTONIETA 1.5 - 38.5 ng/mL 42.8 (H) 141.9 (H) 385.5 (H) Thyroglobulin Antibody 0.0 - 0.9 IU/mL <1.0 <1.0 <1.0 (L): Data is abnormally low (H): Data is abnormally high IMPRESSION/PLAN Brisa Hogan presents to us today unfortunate progression of disease. She is advised of the role of palliative radiation and our plans of presentation at ENT conference. I have reviewed with her the risks, benefits, side effects and alternatives to irradiation via IMRTdue to past radiation weeks about her spinal cord. She has accepted therapy. A copy of the consentwas provided. We would like to see Brisa in 1 weeks for a follow up visit. We have ordered her simulation and treatment of 2000cGy in 5 fractions via IMRT.. Minimum duration of time spent in chart (preparing with review of radiographic and laboratory tests, discussion of planned care with staff and physicians, discussion with patient for counseling and educating, as well as ordering future tests, radiographic studies, or procedures) : I spent a total of 30 minutes on the day of the visit. Portions of this note reflect historical treatments, history of disease, ongoing symptomatology, and exam findings that remain unchanged from the past note ( 03/25/2023 , and may be located in Media [...] andyour physicians for clarification. Marcio Mcintosh MD 10/11/2023 3:39 PM documented in this encounter Plan of Treatment Upcoming Encounters Date Type Department Care Team (Late st Contact Info) Description 07/25/2024 10:00 AM TRAFFIC SIGN ERECTION SUPERVISOR Office Visit [facility] - Endocrinology [address] [place] [phone] Yosi Bustamante MD [address] [place] [address] 2L [place] [address] 07/26/2024 10:00 AM TRAFFIC SIGN ERECTION SUPERVISOR Appointment [facility] RAD [address] [place] [address] Neri Delgado MD [address] [place] [address] 07/26/2024 10:00 AM TRAFFIC SIGN ERECTION SUPERVISOR Office Visit [facility] - ENT [address] [place] [phone] Myra Farmer, POSITION CLASSIFICATION MANAGER [address] [place] [address] [address] [place] [address] 07/26/2024 11:15 AM TRAFFIC SIGN ERECTION SUPERVISOR Office Visit [facility] - ENT [address] [place] [phone] Neri Delgado MD [address] [place] [address] 08/02/2024 2:20 PM TRAFFIC SIGN ERECTION SUPERVISOR Appointment [facility] [address] [place] [address] 08/02/2024 3:00 PM TRAFFIC SIGN ERECTION SUPERVISOR Office Visit [facility] - Hematology/Oncology [address] [place] [address] Remi Beckett MD [address] [place] [address] 08/18/2024 1:45 PM TRAFFIC SIGN ERECTION SUPERVISOR Office Visit [facility] - ENT [address] [place] [phone] Neri Delgado MD [address] [place] [phone] Pending Results Name Type Priority Associated Diagnoses Date /Time CT RAD THERAPY WO CONTRAST Imaging Routine Cervical spine tumor Cancer, metastatic to bone (HCC) Thyroid cancer (CMS/HCC) Malignant tumor of thyroid gland (HCC) Secondary malignant neoplasm of bone (HCC) 10/12/2023 1:30 PM CDT Scheduled Orders Name Type Priority Associated Diagnoses Orde r Schedule CT RAD THERAPY WO CONTRAST Imaging Routine Cervical spine tumor Cancer, metastatic to bone (HCC) Thyroid cancer (CMS/HCC) Malignant tumor of thyroid gland (HCC) Secondary malignant neoplasm of bone (HCC) Expected: 10/11/2023, Expires: 10/10/2024 Scheduled Referrals Name Type Priority Associated Diagnoses Order Schedule AMB REFERRAL TO PALLIATIVE CARE Outpatient Referral Routine Cervical spine tumor Cancer, metastatic to bone (HCC) Thyroid cancer (CMS/HCC) Malignant tumor of thyroid gland (HCC) Secondary malignant neoplasm of bone (HCC) 1 Occurrences starting 10/11/2023 until 10/10/2024 documented as of this encounter Visit Diagnoses Diagnosis Cervical spine tumor- Primary Neoplasm of unspecified nature of bone, soft tissue, and skin Cancer, metastatic to bone (HCC) Secondary malignant neoplasm of bone and bone marrow Thyroid cancer (CMS/HCC) Malignant neoplasm of thyroid gland Malignant tumor of thyroid gland (HCC) Malignant neoplasm of thyroid gland 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
--- OUTSIDE RECORDS SUMMARY | 2024-07-23 07:09 | XMS_ITS | Encounter Summary ---
Author Organization [facility] Address [address] [place] [address] Care Team Providers Care Oim Architect Name Role Phone Joseph Manzanares MD Unavailable Yaya Villatoro MD Primary Care Provider [phone]- [phone] Reason for Visit * Reason Comments Establish Care 6 month cervical spi nal fusion * Consult, Test & Treat (Routine) - Closed Specialty Diagnoses / Procedures Referred By Contact Referred To Contact Otolaryngology / ENT-Otolaryngology Yaya Villatoro MD [address] [address] Neri Delgado MD [address] [place] [id number] Referral ID Status Reason Start Date Expiration Date Visits Re quested Visits Authorized [id number] Closed 08/02/2023 01/31/2024 1 1 Encounter Details Date Type Department Care Team (Late st Contact Info) Description 08/06/2023 2:00 PM CALCINE FURNACE LOADER Office Visit [facility] - ENT [address] [place] [phone] Neri Delgado MD [address] [place] [phone] Hoarseness (Primary Dx); Oropharyngeal dysphagia Social History Tobacco Use Types [...] Date Recorded PHQ2 TOTAL SCORE 1 11/25/2022 [facility] [place] of Occupat ional Health - Occupational Stress [...] Sign Reading Time Taken Comments Blood Pressure 130/72 08/06/2023 2:26 PM CALCINE FURNACE LOADER Pulse 92 08/06/2023 2:26 PM CALCINE FURNACE LOADER Temperature - - Respiratory Rate - - Oxygen Saturation - - Inhaled Oxygen Concentration - - Weight 64.7 kg (142 lb 9.6 oz) 08/06/2023 2:26 P M CALCINE FURNACE LOADER Height 157.5 cm (5' 2) 08/06/2023 2:26 PM CALCINE FURNACE LOADER Body Mass Index 26.08 08/06/2023 2:26 PM CALCINE FURNACE LOADER documented in this encounter Functional Status Functional [...] * Patient Instructions* Priscilla Bernstein MA - 08/06/2023 2:26 PM CALCINE FURNACE LOADER Thank you for visiting [facility] Otolaryngology - Head & Neck Surgery. [...] an appointment, please call our office at [phone] Wednesday through Wednesday from 8:30 am to4:30 pm. You can also request a routine appointment through your [employer] account. Prescription Refills Contact your pharmacy to request all refills. The pharmacy will need to fax the request to us at . Please allow a minimum of 48-72 hours [...] the medical exchange at and ask the loader operator to page the ENT physician control room technician. *Caller ID blocking service will need to be turned off for your call to be returned. We also specialize in Hearing Aids, Allergy testing, swallowing disorders, voice problems, cancer diagnosis, and so much more. Visit our website at [email or web address] for information about our practice and an interactive health encyclopedia. INE FURNACE LOADER documented in this encounter Progress Notes * Evelyn Ugalde MD - 08/06/2023 2:24 PM CST CC: Chief Complaint Patient presents with ??? Establish Care 6 month cervical spinal fusion Diagnosis: Site: Thyroid Histology: PTC Stage: [id number] AJCC IVb Details: Positive margins, LVI +, PNI + (including Right RLN), nodes, JADON + ?? Treatment History: 08/19/20: total thyroidectomy requiring sacrifice [...] follow up of her complex thyroid cancer andassociated dysphonia/dysphagia. Since last visit, she has had stable dysphagia that she manages with chewing up food into small pieces. She recently developed a URI which is contributing to more hoarseness than her baseline. She does not feel that her voice has worsened significantly. She has lost less than 10 lbs since last visit. Endorses a feeling of increased neck tightness. Denies new neck masses. Medical History: Past Medical History: Past Medical History: Diagnosis Date ??? Anxiety [...] breath) 2/2 thyroid mass ??? Thyroid cancer (CMS-HCC) 10/14/2020 ??? Tracheal mass Past Surgical History: Past Surgical History: Procedure Laterality Date ??? [...] DIRECT LARYNGOSCOPY WITH BIOPSY ??? Polypectomy cervical Medications: Current Outpatient Medications Medication Sig ??? atorvastatin (Lipitor) 40 MG tablet TAKE [...] ??? cyclobenzaprine (Flexeril) 5 MG tablet Take by mouth every 8 hours (Patient not taking: Reported on 08/06/2023) ??? cyclobenzaprine (Flexeril) 5 MG tablet Take 1 (one) tablet by mouth 3 times daily as needed (Patient not taking: Reported on 08/06/2023) ??? denosumab (Prolia) 60 MG/ML SC injection [...] capsule by mouth 3 times daily ??? levothyroxine (Synthroid) 112 MCG tablet Take 1 (one) tablet by mouth daily before breakfast Except Wednesday take one and a half pills Reasons: Cancer of Thyroid, Underactive Thyroid ??? naloxone HCl (Narcan) 4 MG/0.1ML nasal spray Porter 1 (one) spray into the nose as [...] for this visit. Allergies: Allergies Allergen Reactions ??? Kiwi Extract Anaphylaxis Social History: Smokin+ pack-years, currently ~5 cigarettes/day. Exam: There were no vitals filed for this visit. General: Awake and alert in no apparent [...] hoarseness Neurologic: Cranial nerves III-XII grossly intact ?? IMAGING: No recent imaging Assessment/Plan: 1. 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 No new lesions or masses. 2. dysphagia, likely multifactorial in origin Disease status: s/p radiation therapy and cervical spinal fusion likely contributing to dysphagia. Discussed with CUP TRIMMING MACHINE OPERATOR. - MBS ordered 3. 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 Sandy Ugalde MD Otolaryngology and Head and Neck Surgery Resident 08/06/23 INE FURNACE LOADER Associated attestation - Neri Delgado MD - 08/06/2023 4:01 PM CALCINE FURNACE LOADER Attending Physician Supervisory Note I personally interviewed and examined the patient and agree with the Resident above. In addition I note: Metastatic recurrent papillary thyroid carcinoma now status post C-spine fixation due to bony metastasis and external beam radiation. She is overall doing quite well despite this although is recovering from recent COVID infection. Scope exam shows stable vocal cord paralysis but with good apposition of the contralateral side. She does have some new dysphagia after these last treatments and so we will further evaluate an MBS in the near future. Otherwise she has no clinically detectable cervicaldisease on exam today but will maintain follow-up with endocrinology and radiation oncology. I was present for all procedures during this visit. Neri Delgado MD documented in this encounter Procedure Notes * Evelyn Ugalde MD - 08/06/2023 3:02 PM CSTAssociated Order(s): PROC ENDOSCOPY-LARYNX Procedure(s): ND LARYNGOSCOPY,FLEX FIBER,DIAGNOSTIC Pre-Procedure Diagnose(s): Hoarseness Procedure Note Anesthesia: Lidocaine 2% and Stone-Synephrine 1/2% Endoscopy Type: Flexible Brbph-Rrivejvzzduoch-Pfvocxrfitzp Procedure Details: Informed consent was obtained. The patient was placed in the sitting position. After topical anesthesia and decongestion, the 4 mm laryngoscope was passed. The nasal cavities, nasopharynx, oropharynx, hypopharynx, and larynx were all examined. Vocal cords were examined during resp iration and phonation. Findings: -Right vocal cord paralysis with good glottic closure. No other lesions or masses or new findings. Disposition: The patient tolerated procedure well. Complications: None INE FURNACE LOADER documented in this encounter Plan of Treatment Upcoming Encounters Date Type Department Care Team (Late st Contact Info) Description 07/25/2024 10:00 AM CALCINE FURNACE LOADER Office Visit [facility] - Endocrinology [address] [place] [address], [place] [address] Yosi Bustamante MD [address] [place] [address] 2L [place] [address] 07/26/2024 10:00 AM CALCINE FURNACE LOADER Appointment [facility] [address] [place] [address] Neri Delgado MD [facility] [place] [address] 07/26/2024 10:00 AM CALCINE FURNACE LOADER Office Visit [facility] - ENT [address] [place] [phone] Myra Farmer, CUP TRIMMING MACHINE OPERATOR [address] [place] [address] [place] [phone] 07/26/2024 11:15 AM CALCINE FURNACE LOADER Office Visit [facility] - ENT [address] [place] [phone] Neri Delgado MD [address] [place] [phone] 08/02/2024 2:20 PM CALCINE FURNACE LOADER Appointment [facility] [address] [place] [phone] 08/02/2024 3:00 PM CALCINE FURNACE LOADER Office Visit [facility] - Hematology/Oncology [address] [place] [phone] Remi Beckett MD [address] [place] [phone] 08/18/2024 1:45 PM CALCINE FURNACE LOADER Office Visit [facility] - ENT [address] [place] [phone] Neri Delgado MD [address] [place] [address] documented as of this encounter Procedures Procedure Name Priority Date/Time Associated Diagnosis Comments ND LARYNGOSCOPY,FLEX FIBER,DIAGNOSTIC Routine 08/06/2023 3:02 PM CALCINE FURNACE LOADER Hoarseness documented in this encounter Results * ND LARYNGOSCOPY,FLEX FIBER,DIAGNOSTIC (08/06/2023 3:02 PM CALCINE FURNACE LOADER) Narrative Evelyn Ugalde MD - 08/06/2023 3:02 PM CALCINE FURNACE LOADER Evelyn Ugalde MD ? 08/06/2023 ??4:01 PM Procedure Note Anesthesia: Lidocaine 2% and Stone-Synephrine 1/2% Endoscopy Type: ??Flexible Tonrs-Jlwtasirlqftbo-Kyzeltqulzms Procedure Details: ??Informed consent was obtained. ??The [...] documented in this encounter Visit Diagnoses Diagnosis Hoarseness- Primary Dysphonia Oropharyngeal dysphagia Dysphagia, oropharyngeal phase documented in this encounter Care Teams Oim Architect Relationship Specialty Start Date End Date Yaya Villatoro MD [address] [facility] [address] [place] [phone] PCP - General Internal Medicine 05/04/23 Joseph Manzanares MD [address] [place] [phone] Internal Medicine 04/21/23 documented as of this encounter
--- OUTSIDE RECORDS SUMMARY | 2024-07-23 07:09 | XMS_ITS | Encounter Summary ---
Author Organization [facility] Health Address [address] [place] [address] Care Team Providers Care Finish Mill Operator Name Role Phone Joseph Manzanares MD Unavailable Yaya Villatoro MD Primary Care Provider [phone]- [phone] Encounter Details Date Type Department Care Team (Latest Contact Info) Description 09/09/2023 1:32 PM BATT PACKER - 09/09/2023 11:59 PM [facility] Hospital Encounter [facility] OP DRAW STATION [address] [place] [phone] Discharge Disposition: Home or Self Care Social [...] Recorded PHQ2 TOTAL SCORE 1 11/25/2022 [facility] of Occupat ional Health - Occupational [...] naloxone HCl (Narcan) 4 MG/0.1ML nasal spray [place] 1 (one) spray into the nose as [...] every 6 hours as needed 08/02/2023 01/24/2024 cyclobenzaprine (Flexeril) 5 MG tablet Take by mouth every 8 hours 03/09/2023 10/11/2023 denosumab (Prolia) 60 MG/ML SC injectionIndications: Thyroid cancer (HCC) Inject 1 mL subcutaneously once for 1 dose 1 mL 06/14/2023 10/25/2023 levothyroxine (Synthroid) 112 MCG tabletIndications:Hyp othyroidism,Malignant Neoplasm of Thyroid Take 1 (one) tablet by mouth daily before breakfast Except Wednesday take one and a half pills Reasons: Cancer of Thyroid, Underactive Thyroid 100 tablet 3 06/14/2023 10/25/2023 documented as of this encounter Plan of Treatment Upcoming Encounters Date Type Department Care Team (Late st Contact Info) Description 07/25/2024 10:00 AM BATT PACKER Office Visit [facility] - Endocrinology [address] [place] [phone] Yosi Bustamante MD [address] [place] [address] [place] [address] 07/26/2024 10:00 AM BATT PACKER Appointment [facility] DIAGNOSTIC RAD [address] [place] [phone] Neri Delgado MD [address] [place] [address] 07/26/2024 10:00 AM BATT PACKER [facility] [address] [place] [phone] Myra Farmer, PAINT STRIPING MACHINE OPERATOR [address] [place] [address] [place] [phone] 07/26/2024 11:15 AM BATT PACKER Office Visit [facility] - ENT [address] [place] [phone] Neri Delgado MD [address] [place] [address] 08/02/2024 2:20 PM BATT PACKER Appointment [facility] [address] [place] [address] 08/02/2024 3:00 PM BATT PACKER Office Visit [facility] - Hematology/Oncology [address] [place] [address] [phone] Remi Beckett MD [address] [place] [phone] 08/18/2024 1:45 PM BATT PACKER Office Visit [facility] - ENT [address] [place] [address] [phone] Neri Delgado MD [address] [place] [address] documented as of this encounter Procedures Procedure Name Priority Date/Time Associated Diagnosis Comments THYROGLOBULIN REFLEX PROFILE Routine 09/09/2023 1:43 PM BATT PACKER Hypocalcemia Thyroid cancer (CMS/HCC) THYROGLOBULIN BY ANTONIETA RFLXED Routine 09/09/2023 1:43 PM BATT PACKER Hypocalcemia Thyroid cancer (CMS/HCC) TSH REFLEX FREE T4 Routine 09/09/2023 1: 43 PM BATT PACKER Hypocalcemia Thyroid cancer (CMS/HCC) RENAL FUNCTION PANEL Routine 09/09/2023 1:43 PM BATT PACKER Hypocalcemia Thyroid cancer (CMS/HCC) T4 FREE Routine 09/09/2023 1:43 PM BATT PACKER Hypocalcemia Thyroid cancer (CMS/HCC) documented in this encounter Results * (ABNORMAL) THYROGLOBULIN BY ANTONIETA RFLXED (09/09/2023 1:43 PM BATT PACKER) Thyroglobulin by ANTONIETA 385.5(H) 1.5 - 38.5 ng/mL 09/10/2023 7:08 PM BATT PACKER [facility] ([facility]) Comment: According to the National Academy of [...] SPECIMEN / Unknown Lab Venipuncture / Unknown 09/09/2023 1:43 PM BATT PACKER 09/09/2023 2:18 PM BATT PACKER Narrative [facility] ([facility]) - 09/10/2023 7:08 PM BATT PACKER Performed at: ??01 - [facility] [address] [place], [place] ??[id number] Director Zone: Oral Melendez PhD, Phone: ??[phone] Yosi Bustamante MD LAB - CHEMISTRY ORD ERABLES [facility] ([facility]) [address] [place] [address] * T4 FREE (09/09/2023 1:43 PM BATT PACKER) T4 Free 1.4 0.7 - 1.5 ng/dL 09/09/2023 3:52 PM BATT PACKER [facility] Blood BLOOD SPECIMEN / Unknown Lab Venipuncture / Unknown 09/09/2023 1:43 PM BATT PACKER 09/09/2023 2:26 PM BATT PACKER Yosi Bustamante MD LAB - CHEMISTRY ORD ERABLES Performing Organization Address City/[facility]/ZIP Co de Phone Number [facility] [address] [place] [phone], [place] [phone] * (ABNORMAL) TSH REFLEX FREE T4 (09/09/2023 1:43 PM BATT PACKER) Pathologist [facility] TSH 0.010(L) 0.350 - 4.940 uIU/mL 09/09/2023 3:18 PM BATT PACKER [facility] Blood BLOOD SPECIMEN / Unknown Lab Venipuncture / Unknown 09/09/2023 1:43 PM BATT PACKER 09/09/2023 2:26 PM BATT PACKER Yosi Bustamante MD LAB - CHEMISTRY ORD ERABLES Performing Organization Address [facility] Co de Phone Number [address] [address], [place] [phone] * THYROGLOBULIN REFLEX PROFILE (09/09/2023 1:43 PM BATT PACKER) Pathologist [facility] Thyroglobulin Antibody <1.0 0.0 - 0.9 IU/mL 09/10/2023 7:08 PM BATT PACKER [facility] ([facility]) Comment: Thyroglobulin Antibody measured by Lisbet Marcos Methodology It should be noted that the presence of thyroglobulin antibodies may not be pathogenic nor diagnostic, especially at very low levels. The assay weigher production has found that four percent of individuals without evidence of thyroid disease or autoimmunity will have positive TgAb levels up to 4 IU/mL. Blood BLOOD SPECIMEN / Unknown Lab Venipuncture / Unknown 09/09/2023 1:43 PM BATT PACKER 09/09/2023 2:18 PM BATT PACKER Narrative [facility] ([facility]) - 09/10/2023 7:08 PM BATT PACKER Performed at: ??01 - [facility] [address] [place], [place] ??[id number] Director Zone: Oral Melendez PhD, Phone: ??[phone] Yosi Bustamante MD LAB - CHEMISTRY ORD ERABLES Performing Organization Address City/[facility]/ZIP Co de Phone Number [facility] ([facility]) [address] [place] [address] * (ABNORMAL) RENAL FUNCTION PANEL (09/09/2023 1:43 PM BATT PACKER) BUN 15 7 - 26 mg/dL 09/09/2023 3:08 PM [facility] Creatinine 0.80 0.56 - 0.96 mg/dL 09/09/2023 3:08 PM [facility] Sodium 139 136 - 145 mmol/L 09/09/2023 3:08 PM [facility] Potassium 3.7 3.5 - 4.5 mmol/L 09/09/2023 3:08 PM [facility] Chloride 104 98 - 107 mmol/L 09/09/2023 3:08 PM [facility] CO2 24 22 - 29 mmol/L 09/09/2023 3:08 PM [facility] Glucose 103 70 - 115 mg/dL 09/09/2023 3:08 PM [facility] Albumin 3.8 3.4 - 5.0 g/dL 09/09/2023 3:08 PM [facility] Calcium 8.9 8.4 - 10.2 mg/dL 09/09/2023 3:08 PM [facility] Phosphorus 4.7 2.9 - 5.1 mg/dL 09/09/2023 3:08 PM [facility] Anion Gap 11 6 - 16 09/09/2023 3:08 PM [facility] BUN/Creatinine Ratio 19 7 - 23 09/09/2023 3:08 PM [facility] Osmolality Calculated 289 275 - 295 mOsm/kg 09/09/2023 3:08 PM [facility] eGFR by CKD-EPI 82(L) >=90 mL/min/1.7 3 m2 09/09/2023 3:08 PM [facility] Blood BLOOD SPECIMEN / Unknown Lab Venipuncture / Unknown 09/09/2023 1:43 PM BATT PACKER 09/09/2023 2:26 PM BATT PACKER Yosi Bustamante MD LAB - CHEMISTRY ORD ERABLES [facility] [address] [place] [address] [phone] documented in this encounter Visit Diagnoses Diagnosis Hypocalcemia- Primary Thyroid cancer (CMS/HCC) Malignant neoplasm of thyroid gland documented in this encounter Care Teams Finish Mill Operator Relationship Specialty Start Date End Date Yaya Villatoro MD [address] [facility] [address] [place] [phone] PCP - General Internal Medicine 05/04/23 Joseph Manzanares MD [address] [place] [phone] Internal Medicine 04/21/23 documented as of this encounter
--- OUTSIDE RECORDS SUMMARY | 2024-07-23 07:09 | XMS_ITS | Encounter Summary ---
Author Organization [facility] Health Address [address] [facility] [place] [address] Care Team Providers Care Investor Name Role Phone Tiana Naylor DO Primary Care Provider [phone] Joseph Manzanares MD Unavailable Reason for Visit * Reason Comments Refill Request Encounter Details Date Type Department Care Team (Late st Contact Info) Description 04/21/2023 Refill [facility] - Internal Med [address] [facility] [phone] Tiana Naylor, [address] [facility] [place], [place] [phone] Refill Request Social History Tobacco Use Types [...] Date Recorded PHQ2 TOTAL SCORE 1 11/25/2022 [facility] [place] of Occupat ional Health - Occupational Stress [...] encounter Miscellaneous Notes * Telephone Encounter - Sita Cotter RN - 04/21/2023 10:50 AM CDT Pharmacy requests 90 day supply Refill Request Brisa Hogan ELE: 11/25/22 NOV scheduled: 06/09/2023 LRF: 02/16/23 Qty Disp: 30 # of refills: 3 Allergies: Allergies Allergen Reactions ??? Kiwi Extract Anaphylaxis Pended Medication Order: Requested Prescriptions Pending Prescriptions Disp Refills ??? atorvastatin (Lipitor) 40 MG tablet [Pharmacy Med Name: ATORVASTATIN 40 MG TABLET] 90 tablet 1 Sig: TAKE 1 TABLET BY MOUTH EVERYDAY AT BEDTIME documented in this encounter Plan of Treatment Upcoming Encounters Date Type Department Care Team (Late st Contact Info) Description 07/25/2024 10:00 AM PLUG WIRER Office Visit [facility] - Endocrinology [address] [place] [address] [phone] Yosi Bustamante MD [address] [place] [address] [place] [address] 07/26/2024 10:00 AM PLUG WIRER Appointment [facility] DIAGNOSTIC RAD [address] [place] [phone] Neri Delgado MD [address] [place] [address] 07/26/2024 10:00 AM PLUG WIRER Office Visit [facility] - ENT [address] [place] [address] [phone] Myra Farmer, SALES MANAGEMENT INTERN [address] [place] [address] [place] [phone] 07/26/2024 11:15 AM PLUG WIRER Office Visit [facility] - ENT [address] [place] [address] [phone] Neri Delgado MD [address] [place] [address] 08/02/2024 2:20 PM PLUG WIRER Appointment [facility] [address] [place] [address] 08/02/2024 3:00 PM PLUG WIRER Office [facility] - Hematology/Oncology [address] [place] [address] [phone] Remi Beckett MD [address] [place] [address] [phone] 08/18/2024 1:45 PM PLUG WIRER Office Visit [facility] - ENT [address] [place] [address] [phone] Neri Delgado MD [address] [place] [address] documented as of this encounter Visit Diagnoses Diagnosis Hyperlipidemia, unspecified hyperlipidemia type documented in this encounter Care Teams Investor Relationship Specialty Start Date End Date Tiana Naylor DO [address] [facility] [place] [address] PCP - General Internal Medicine 04/21/23 05/03/23 Joseph Manzanares MD [address] [place] [phone] Internal Medicine 04/21/23 documented as of this encounter
--- OUTSIDE RECORDS SUMMARY | 2024-07-23 07:09 | XMS_ITS | Encounter Summary ---
Author Organization [facility] Health Address [address] [place] [address] Care Team Providers Care Environmental Services Floor Tech Name Role Phone Joseph Manzanares MD Unavailable Yaya Villatoro MD Primary Care Provider [phone]- [phone] Encounter Details Date Type Department Care Team (Latest Contact Info) Description 08/06/2023 Travel Social History Tobacco Use Types Packs/Day [...] Date Recorded PHQ2 TOTAL SCORE 1 11/25/2022 [facility] of Occupat ional Health - [...] st Contact Info) Description 07/25/2024 10:00 AM SHIPYARD HELPER [facility] [address] [place] [phone] Yosi Bustamante MD [address] [place] [address] 2L Div of Endocrin[place] [address] 07/26/2024 10:00 AM SHIPYARD HELPER Appointment [facility] DIAGNOSTIC RAD [address] [place] [phone] Neri Delgado MD [address] [place] [address] 07/26/2024 10:00 AM SHIPYARD HELPER Office Visit [facility] - ENT [address] [place] [phone] Myra Farmer, MAP COMPILER [address] [place] [address] 2L [place] [phone] 07/26/2024 11:15 AM SHIPYARD HELPER Office Visit [facility] - ENT [address] [place] [phone] Neri Delgado MD [address] [place] [address] 08/02/2024 2:20 PM SHIPYARD HELPER Appointment [facility] [address] [place] [address] 08/02/2024 3:00 PM SHIPYARD HELPER Office Visit [facility] Group - Hematology/Oncology [address] [place] [address] [phone] Remi Beckett MD [address] [place] [phone] 08/18/2024 1:45 PM SHIPYARD HELPER Office Visit [facility] - ENT [address] [place] [phone] Neri Delgado MD [address] [place] [address] documented as of this encounter Visit Diagnoses Not on filedocumented in this encounter Care Teams Environmental Services Floor Tech Relationship Specialty Start Date End Date Yaya Villatoro MD [address] [phone] PCP - General Internal Medicine 05/04/23 Joseph Manzanares MD [address] [place] [phone] Internal Medicine 04/21/23 documented as of this encounter
--- OUTSIDE RECORDS SUMMARY | 2024-07-23 07:09 | XMS_ITS | Encounter Summary ---
Author Organization [facility] Health Address [address] [place] [address] Care Team Providers Care Terrazzo Roller Name Role Phone Joseph Manzanares MD Unavailable Yaya Villatoro MD Primary Care Provider [phone] Encounter Details Date Type Department Care Team (Latest Contact Info) Description 06/10/2023 Travel Social History Tobacco Use Types Packs/Day [...] st Contact Info) Description 07/25/2024 10:00 AM ENGRAVINGS POLISHER [facility] [address] [place] [phone] Yosi Bustamante MD [address] [place] [address] 2L [place] [address] 07/26/2024 10:00 AM ENGRAVINGS POLISHER Appointment [facility] DI[facility] RAD [address] [place] [phone] Neri Delgado MD [address] [place] [address] 07/26/2024 10:00 AM ENGRAVINGS POLISHER Office Visit [facility] - ENT [address] [place] [phone] Myra Farmer, DENTAL SCHEDULING COORDINATOR [address] [place] [address] 2L [place] [phone] 07/26/2024 11:15 AM ENGRAVINGS POLISHER Office Visit [facility] - ENT [address] [place] [phone] Neri Delgado MD [address] [place] [address] 08/02/2024 2:20 PM ENGRAVINGS POLISHER Appointment [facility] [address] [place] [address] 08/02/2024 3:00 PM ENGRAVINGS POLISHER Office Visit [facility] Group - Hematology/Oncology [address] [place] [phone] Remi Beckett MD [address] [place] [address] [phone] 08/18/2024 1:45 PM ENGRAVINGS POLISHER Office Visit [facility] - ENT [address] [place] [phone] Neri Delgado MD [address] [place] [address] documented as of this encounter Visit Diagnoses Not on filedocumented in this encounter Care Teams Terrazzo Roller Relationship Specialty Start Date End Date Yaya Villatoro MD [address] [phone] PCP - General Internal Medicine 05/04/23 Joseph Manzanares MD [address] [place] [phone] Internal Medicine 04/21/23 documented as of this encounter
--- OUTSIDE RECORDS SUMMARY | 2024-07-23 07:09 | XMS_ITS | Encounter Summary ---
Author Organization [facility] Health Address [address] [place] [place] [address] Care Team Providers Care Woodworker Name Role Phone Joseph Manzanares MD Unavailable Yaya Villatoro MD Primary Care Provider [phone]- [phone] Encounter Details Date Type Department Care Team (Latest Contact Info) Description 10/20/2023 10:56 AM CDT - 10/20/2023 11:59 PM CDT Hospital Encounter [facility] [place], [place] [phone] Marcio Mcintosh MD [address] [place] [address] Discharge Disposition: Home or Self [...] Date Recorded PHQ2 TOTAL SCORE 1 11/25/2022 [facility] of Occupat ional Health - Occupational Stress [...] naloxone HCl (Narcan) 4 MG/0.1ML nasal spray [place] 1 (one) spray into the nose as [...] dose 1 mL 06/14/2023 10/25/2023 HYDROcodone-acetamino phen ([place]) 5-325 MG tabletIndications:Cer vical spine tumor,Cancer, metastatic [...] as of this encounter Progress Notes * Alize French RN - 10/20/2023 1:37 PM CDT Call the patient back, informed Dr. Mcintosh will be prescribing additional pain meds. * Alize French RN - 10/20/2023 11:44 AM CDT The patient reported falling going into her doorway yesterday, she awkwardly fell on her R side. She stated, she is experiencing increased bilateral shoulder pain and new onset of numbness of the R arm. She is requesting pain medication. Dr. Mcintosh was not available. Informed the patient I willspeak with Dr. Mcintosh and call her later. documented in this encounter Plan of Treatment Upcoming Encounters Date Type Department Care Team (Late st Contact Info) Description 07/25/2024 10:00 AM TUBE MOLDER FIBERGLASS Office Visit [facility] Group - Endocrinology [address] [place] [phone] Yosi Bustamante MD [address] [place] [address] 2L Div [place] [address] 07/26/2024 10:00 AM TUBE MOLDER FIBERGLASS Appointment [facility] DI[facility] RAD [address] [place] [phone] Neri Delgado MD [address] [place] [address] 07/26/2024 10:00 AM TUBE MOLDER FIBERGLASS Office Visit [facility] - ENT [address] [place] [phone] Myra Farmer, MILLER APPRENTICE [address] [place] [address] 2L [place] [address] 07/26/2024 11:15 AM TUBE MOLDER FIBERGLASS Office Visit [facility] - ENT [address] [place] [phone] Neri Delgado MD [address] [place] [address] 08/02/2024 2:20 PM TUBE MOLDER FIBERGLASS Appointment [facility] [address] [place] [address] 08/02/2024 3:00 PM TUBE MOLDER FIBERGLASS Office Visit [facility] Group - Hematology/Oncology [address] [place] [address] Remi Beckett MD [address] [place] [address] 08/18/2024 1:45 PM TUBE MOLDER FIBERGLASS Office Visit [facility] - ENT [address] [place] [phone] Neri Delgado MD [address] [place] [address] documented as of this encounter Visit Diagnoses [...] marrow documented in this encounter Care Teams Woodworker Relationship Specialty Start Date End Date Yaya Villatoro MD [address] [place] [phone] PCP - General Internal Medicine 05/04/23 Joseph Manzanares MD [address] [place] [phone] Internal Medicine 04/21/23 documented as of this encounter
--- OUTSIDE RECORDS SUMMARY | 2024-07-23 07:09 | XMS_ITS | Encounter Summary ---
Author Organization [facility] Health Address [address] [facility] [place] [address] Care Team Providers Care Medical Management Trainer Name Role Phone Joseph Manzanares MD Unavailable Yaya Villatoro MD Primary Care Provider [phone]- [phone] Reason for Visit * Reason Onset Date Comments Appointment 09/28/2023 Encounter Details Date Type Department Care Team (Late st Contact Info) Description 09/28/2023 Telephone [facility] ONC [address] [place] [address] Alize French, JOSY Appointment Social [...] SCORE 1 11/25/2022 [facility] - Occupational Stress Questionnaire Answer Date [...] Telephone Encounter - Alize French RN - 09/28/2023 11:02 AM CDT Spoke with the patient, informed her the the office is closed on Wednesday in honor of Wednesday. Instructed to complete the MRI as scheduled. The patient stated her phone has not been working properly and that's he missed a lot of calls. She reported the lost of her and that his is 09/29/2023. She was offered my condolences. Coordinated and informed of her rescheduled doctor's appt and that a letter will be mailed. documented in this encounter Plan of Treatment Upcoming Encounters Date Type Department Care Team (Late st Contact Info) Description 07/25/2024 10:00 AM CURTAIN FELLER BLINDSTITCH Office Visit [facility] - Endocrinology [address] [place] [phone] Yosi Bustamante MD [address] [place] [address] 2L [place] [address] 07/26/2024 10:00 AM CURTAIN FELLER BLINDSTITCH Appointment [facility] DIAGNOSTIC RAD [address] [place] [phone] Neri Delgado MD [address] [place] [address] 07/26/2024 10:00 AM CURTAIN FELLER BLINDSTITCH Office Visit [facility] - ENT [address] [place] [phone] Myra Farmer, DIRECTOR CORPORATE SECURITY [address] [place] [address] 2L [place] [phone] 07/26/2024 11:15 AM CURTAIN FELLER BLINDSTITCH [facility] [address] [place] [phone] Neri Delgado MD [address] [place] [address] 08/02/2024 2:20 PM CURTAIN FELLER BLINDSTITCH Appointment [facility] [address] [place] [address] 08/02/2024 3:00 PM CURTAIN FELLER BLINDSTITCH Office Visit [facility] Group - Hematology/Oncology [address] [place] [phone] Remi Beckett MD [address] [place] [phone] 08/18/2024 1:45 PM CURTAIN FELLER BLINDSTITCH Office Visit [facility] - ENT [address] [place] [phone] Neri Delgado MD [address] [place] [address] documented as of this encounter Visit Diagnoses Not on filedocumented in this encounter Care Teams Medical Management Trainer Relationship Specialty Start Date End Date Yaya Villatoro MD [address] [place] [phone] PCP - General Internal Medicine 05/04/23 Joseph Manzanares MD [address] [place] [phone] Internal Medicine 04/21/23 documented as of this encounter
--- OUTSIDE RECORDS SUMMARY | 2024-07-23 07:09 | XMS_ITS | Encounter Summary ---
Author Organization [facility] Health Address [address] [place] [address] Care Team Providers Care Manager Database Name Role Phone Joseph Manzanares MD Unavailable Yaya Villatoro MD Primary Care Provider [phone] Encounter Details Date Type Department Care Team (Latest Contact Info) Description 09/09/2023 Travel Social History Tobacco Use Types Packs/Day [...] Date Recorded PHQ2 TOTAL SCORE 1 11/25/2022 [facility] Occup[facility] ional Health - Occupational [...] st Contact Info) Description 07/25/2024 10:00 AM NETWORK DEVELOPMENT COORDINATOR [facility] Visit [facility] Endocrinology [address] [place] [phone] Yosi Bustamante MD [address] [place] [address] 2L [place] [address] 07/26/2024 10:00 AM NETWORK DEVELOPMENT COORDINATOR Appointment [facility] [address] [place] [address] Neri Delgado MD [address] [place] [address] 07/26/2024 10:00 AM NETWORK DEVELOPMENT COORDINATOR Office Visit [facility] - ENT [address] [place] [phone] Myra Farmer, PUBLIC HEALTH ASSISTANT [address] [place] [address] 2L [place] [phone] 07/26/2024 11:15 AM NETWORK DEVELOPMENT COORDINATOR Office Visit [facility] - ENT [address] [place] [phone] Neri Delgado MD [address] [place] [address] 08/02/2024 2:20 PM NETWORK DEVELOPMENT COORDINATOR Appointment [facility] [address] [place] [address] 08/02/2024 3:00 PM NETWORK DEVELOPMENT COORDINATOR Office Visit [facility] - Hematology/Oncology [address] [place] [phone] Remi Beckett MD [address] [place] [phone] 08/18/2024 1:45 PM NETWORK DEVELOPMENT COORDINATOR Office Visit [facility] - ENT [address] [place] [address] Neri Delgado MD [address] [place] [address] documented as of this encounter Visit Diagnoses Not on filedocumented in this encounter Care Teams Manager Database Relationship Specialty Start Date End Date Yaya Villatoro MD [address] [phone] PCP - General Internal Medicine 05/04/23 Joseph Manzanares MD [address] [place] [phone] Internal Medicine 04/21/23 documented as of this encounter
--- OUTSIDE RECORDS SUMMARY | 2024-07-23 07:09 | XMS_ITS | Encounter Summary ---
Author Organization [facility] Health Address [address] [facility] [place] [address] Care Team Providers Care Education Rn Name Role Phone Joseph Manzanares MD Unavailable Yaya Villatoro MD Primary Care Provider [phone]- [phone] Encounter Details Date Type Department Care Team (Late st Contact Info) Description 06/02/2023 Orders Only [facility] - Orthopedic Surgery [address] [facility] [place] [phone] Cesar Brooks MD [address] [facility] [address] [place], [place] [phone] Left hip pain Social History Tobacco Use Types Packs/Day Years [...] Date Recorded PHQ2 TOTAL SCORE 1 11/25/2022 [facility] Occupat ional Health - Occupational [...] st Contact Info) Description 07/25/2024 10:00 AM FACILITIES COORDINATOR Office Visit [facility] - Endocrinology [address] [place] [phone] Yosi Bustamante MD [address] [place] [address] 2L [place] [address] 07/26/2024 10:00 AM FACILITIES COORDINATOR Appointment [facility] [address] [place] [address] Neri Delgado MD [address] [place] [address] 07/26/2024 10:00 AM FACILITIES COORDINATOR Office Visit [facility] - ENT [address] [place] [phone] Myra Farmer, ANIMAL SCIENCE PROFESSOR [address] [place] [address] 2L [place] [address] 07/26/2024 11:15 AM FACILITIES COORDINATOR Office Visit [facility] - ENT [address] [place] [phone] Neri Delgado MD [address] [place] [address] 08/02/2024 2:20 PM FACILITIES COORDINATOR Appointment [facility] [address] [place] [address] 08/02/2024 3:00 PM FACILITIES COORDINATOR Office Visit [facility] - Hematology/Oncology [address] [place] [address] Remi Beckett MD [address] [place] [address] 08/18/2024 1:45 PM FACILITIES COORDINATOR Office Visit [facility] - ENT [address] [place] [phone] Neri Delgado MD [address] [place] [address] Scheduled Orders Name Type Priority Associated Diagnoses Orde r Schedule XR PELVIS W LEFT HIP 2VW Imaging Routine Left hip pain 1 Occurrences starting 06/02/2023 until 06/02/2024 documented as of this encounter Visit Diagnoses Diagnosis Left hip pain- Primary Pain in joint, pelvic region and thigh documented in this encounter Care Teams Education Rn Relationship Specialty Start Date End Date Yaya Villatoro MD [address] [phone] PCP - General Internal Medicine 05/04/23 Joseph Manzanares MD [address] [place] [phone] Internal Medicine 04/21/23 documented as of this encounter
--- OUTSIDE RECORDS SUMMARY | 2024-07-23 07:09 | XMS_ITS | Encounter Summary ---
Author Organization [facility] Health Address [address] [place] [address] Care Team Providers Care Incinerator Attendant Name Role Phone Joseph Manzanares MD Unavailable Yaya Villatoro MD Primary Care Provider [phone] Reason for Visit * Reason Onset Date Comments Appointment 10/13/2023 Encounter Details Date Type Department Care Team (Late st Contact Info) Description 10/13/2023 Telephone [facility] - Centralized Scheduling [address] [place] [phone] Yosi Bustamante MD [address] [place] [address] Appointment Social History Tobacco Use Types Packs/Day [...] Date Recorded PHQ2 TOTAL SCORE 1 11/25/2022 [facility]at [facility] Health - Occupational [...] encounter Miscellaneous Notes * Telephone Encounter - Brayan Potter - 10/13/2023 3:45 PM CDT Mrs. Hogan is wanting to reschedule her appointment she had with Dr. Bustamante. Please call her and get her rescheduled. Callback number: [phone] documented in this encounter Plan of Treatment Upcoming Encounters Date Type Department Care Team (Late st Contact Info) Description 07/25/2024 10:00 AM MOLDING SANDER Office Visit [facility] - Endocrinology [address] [place] [phone] Yosi Bustamante MD [address] [place] [address] 2L [place] [address] 07/26/2024 10:00 AM MOLDING SANDER Appointment [facility] [address] [place] [address] Neri Delgado MD [address] [place] [address] 07/26/2024 10:00 AM MOLDING SANDER Office Visit [facility] - ENT [address] [place] [phone] Myra Farmer, EP TECHNOLOGIST [address] [place] [address] 2L [place] [address] 07/26/2024 11:15 AM MOLDING SANDER Office Visit [facility] - ENT [address] [place] [phone] Neri Delgado MD [address] [place] [address] 08/02/2024 2:20 PM MOLDING SANDER Appointment [facility] [address] [place] [address] 08/02/2024 3:00 PM MOLDING SANDER Office Visit [facility] - Hematology/Oncology [address] [place] [phone] Remi Beckett MD [address] [place] [phone] 08/18/2024 1:45 PM MOLDING SANDER Office Visit [facility] - ENT [address] [place] [phone] Neri Delgado MD [address] [place] [address] documented as of this encounter Visit Diagnoses Not on filedocumented in this encounter Care Teams Incinerator Attendant Relationship Specialty Start Date End Date Yaya Villatoro MD [address] [place] [phone] PCP - General Internal Medicine 05/04/23 Joseph Manzanares MD [address] [place] [phone] Internal Medicine 04/21/23 documented as of this encounter
--- OUTSIDE RECORDS SUMMARY | 2024-07-23 07:09 | XMS_ITS | Encounter Summary ---
Author Organization [facility] Health Address [address] [facility] [place] [address] Care Team Providers Care Services Rep Name Role Phone Joseph Manzanares MD Primary Care Provider [phone] Tiana Naylor DO Unavailable [phone] Encounter Details Date Type Department Care Team (Latest Contact Info) Description 04/01/2023 Travel Social History Tobacco Use Types Packs/Day [...] st Contact Info) Description 07/25/2024 10:00 AM DRAPERY WORKER [facility] Endocr[facility]ology [address] [place] [phone] Yosi Bustamante MD [address] [place] [address] 2L [place] [address] 07/26/2024 10:00 AM DRAPERY WORKER Appointment [facility] [address] [place] [address] Neri Delgado MD [address] [place] [address] 07/26/2024 10:00 AM DRAPERY WORKER Office Visit [facility] - ENT [address] [place] [phone] Myra Farmer, STAFF TOXICOLOGIST [address] [place] [address] 2L [place] [phone] 07/26/2024 11:15 AM DRAPERY WORKER Office Visit [facility] - ENT [address] [place] [phone] Neri Delgado MD [address] [place] [address] 08/02/2024 2:20 PM DRAPERY WORKER Appointment [facility] [address] [place] [address] 08/02/2024 3:00 PM DRAPERY WORKER Office Visit [facility] - Hematology/Oncology [address] [place] [phone] Remi Beckett MD [address] [place] [phone] 08/18/2024 1:45 PM DRAPERY WORKER Office Visit [facility] - ENT [address] [place] [address] Neri Delgado MD [facility] [place] [address] documented as of this encounter Visit Diagnoses Not on filedocumented in this encounter Care Teams Services Rep Relationship Specialty Start Date End Date Joseph Manzanares MD [address] [place] [phone] PCP - General Internal Medicine 10/07/22 04/20/23 Tiana Naylor DO [address] [facility] [place] [address] Resident - PCP Internal Medicine 01/13/23 04/20/23 documented as of this encounter
--- OUTSIDE RECORDS SUMMARY | 2024-07-23 07:09 | XMS_ITS | Encounter Summary ---
Author Organization [facility] Address [address] [place] [address] Care Team Providers Care Print Journalist Name Role Phone Joseph Manzanares MD Unavailable Yaya Villatoro MD Primary Care Provider [phone] Reason for Visit * Radiology Services (Routine) - Closed Specialty Diagnoses / Procedures Referred By Contac t Referred To Contact Diagnoses Cervical spine tumor Cancer, metastatic to bone (HCC) Thyroid cancer (HCC) Malignant tumor of thyroid gland (HCC) Secondary malignant neoplasm of bone (HCC) Procedures CT RAD THERAPY WO CONTRAST Marcio Mcintosh MD [address] [place] [address] [address] Referral ID Status Reason Start Date Expiration Date Visits Re quested Visits Authorized [id number] Closed 10/18/2023 01/16/2024 1 1 Encounter Details Date Type Department Care Team (Latest Contact Info) Description 10/12/2023 12:59 PM CDT - 10/12/2023 11:59 PM CDT Hospital Encounter [facility] ONC [facility] [place] [address] Marcio Mcintosh MD [facility] [place] [address] Discharge Disposition: Home or Self [...] Recorded PHQ2 TOTAL SCORE 1 11/25/2022 [facility] [place] of Occupat ional Health - Occupational Stress [...] naloxone HCl (Narcan) 4 MG/0.1ML nasal spray Boon 1 (one) spray into the nose as [...] dose 1 mL 06/14/2023 10/25/2023 HYDROcodone-acetamino phen ([place]) 5-325 MG tabletIndications:Cer vical spine tumor,Cancer, metastatic [...] st Contact Info) Description 07/25/2024 10:00 AM PEPPER PICKER Office Visit [facility] - Endocrinology [address] [place] [phone] Yosi Bustamante MD [address] [place] [address] 2L [place] [address] 07/26/2024 10:00 AM PEPPER PICKER Appointment [facility] [address] [place] [phone] Neri Delgado MD [address] [place] [address] 07/26/2024 10:00 AM PEPPER PICKER Office Visit [facility] - ENT [address] [place] [phone] Myra Farmer, CARPET LAYER [address] [place] [address] 2L [place] [phone] 07/26/2024 11:15 AM PEPPER PICKER Office Visit [facility] - ENT [address] [place] [phone] Neri Delgado MD [address] [place] [address] 08/02/2024 2:20 PM PEPPER PICKER Appointment [facility] [address] [place] [address] 08/02/2024 3:00 PM PEPPER PICKER Office Visit [facility] - Hematology/Oncology [address] [place] [phone] Remi Beckett MD [address] [place] [phone] 08/18/2024 1:45 PM PEPPER PICKER Office Visit [facility] - ENT [address] [place] [address] Neri Delgado MD [facility]5 [place] [address] Pending Results Name Type Priority Associated Diagnoses Date /Time CT RAD THERAPY WO CONTRAST Imaging Routine Cervical spine tumor Cancer, metastatic to bone (HCC) Thyroid cancer (CMS/HCC) Malignant tumor of thyroid gland (HCC) Secondary malignant neoplasm of bone (HCC) 10/12/2023 1:30 PM CDT documented as of this encounter Visit Diagnoses [...] marrow documented in this encounter Care Teams Print Journalist Relationship Specialty Start Date End Date Yaya Villatoro MD [address] [phone] PCP - General Internal Medicine 05/04/23 Joseph Manzanares MD [address] [place] [phone] Internal Medicine 04/21/23 documented as of this encounter
--- OUTSIDE RECORDS SUMMARY | 2024-07-23 07:09 | XMS_ITS | Encounter Summary ---
Author Organization [facility] Address [address] [facility] [place] [address] Care Team Providers Care High Energy Forming Equipment Operator Name Role Phone Joseph Manzanares MD Unavailable Yaya Villatoro MD Primary Care Provider [phone] Reason for Visit * Reason Comments Thyroid Cancer Thyroid Problem Hypothyroidism S/p t hyroidectomy * Consult, Test & Treat (Routine) - Closed Specialty Diagnoses / Procedures Referred By Yuan robins Referred To Contact Endocrinology Diagnoses Postprocedural hypothyroidism Procedures [facility] UNLISTED E/M SERVICE Yaya Villatoro MD [address] [facility] [address] [place] [address] Yosi Bustamante MD [address] [place] [address] 2L [place] [address] Referral ID Status Reason Start Date Expiration Date Visits Re quested Visits Authorized [id number] Closed 05/05/2023 11/03/2023 1 1 Encounter Details Date Type Department Care Team (Latest Contact Info) Description 06/14/2023 10:00 AM ETHYLBENZENE CONVERTER OPERATOR Office Visit [facility] - Endocrinology [address] [place] [address], [facility] [place] [phone] Yosi Bustamante MD [address] [place] [address] 2[address] [place] [address] Postoperative hypothyroidism (Primary Dx); Thyroid cancer (HCC); Hypocalcemia; Other hypoparathyroidism Social History Tobacco Use Types Packs/Day Years [...] Sign Reading Time Taken Comments Blood Pressure 126/84 06/14/2023 10:10 AM ETHYLBENZENE CONVERTER OPERATOR Pulse 85 06/14/2023 10:10 AM ETHYLBENZENE CONVERTER OPERATOR Temperature - - Respiratory Rate 17 06/14/2023 10:10 AM ETHYLBENZENE CONVERTER OPERATOR Oxygen Saturation 97% 06/14/2023 10:10 AM ETHYLBENZENE CONVERTER OPERATOR Inhaled Oxygen Concentration - - Weight 65.8 kg (145 lb) 06/14/2023 10:10 AM ETHYLBENZENE CONVERTER OPERATOR Height 157.5 cm (5' 2) 06/14/2023 10:10 AM ETHYLBENZENE CONVERTER OPERATOR Body Mass Index 26.52 06/14/2023 10:10 AM ETHYLBENZENE CONVERTER OPERATOR documented in this encounter Functional Status Functional [...] * Patient Instructions* Yosi Bustamante MD - 06/13/2023 8:26 AM ETHYLBENZENE CONVERTER OPERATOR BP 126/84 (BP SITE: RIGHT ARM, BP POSITION: SITTING, BP Cuff Size: A) Pulse 85 Resp 17 Ht 1.575 m (5' 2) Wt 65.8 kg (145 lb) SpO2 97% How to Contact Us Between Office Visits Please make your follow up appointment before you leave the office today. If you are unable to makethe appointment today, please contact us at [phone]. To make an appointment: Please call us at [phone], option 1. To requesting refills or leaving a message for your doctor, Please call [phone], option 2. This is the option to speak to a nurse if they are available. We request that all prescription refills be requested during regular office phone hours. Phone lines are open from 8:00 am to 4:30 pm Wednesday through Wednesday. Our fax number is [phone]. After hours urgent calls that cannot wait untill phone lines are open on the next business day are given to the Endocrine physician exceptional needs teacher. Please call [phone] and identify yourself as a patient in our practice with your doctor's name. The turning machine operator helper will contact the physician exceptional needs teacher. You can g enerally expect a return call within 30 minutes. On weekends, physicians are seeing hospitalized patients and there may be a longer wait. Test and laboratory results: Our practice typically reports lab and test results through letters orMYChart, the [employer] online patient portal. Please allow 5 days from when your tests are completed to receive the results. Visit our website at [email or web address] for additional information about [employer] and an interactive health encyclopedia. PLAN CONTINUE LEVOTHYROXINE 112 DAILY EXCEPT Wednesday TAKE ONE AND A HALF THYROID PILLS NEW PRESCRIPTION TO PHARMACY CONTINUE CALCITRIOL 0.5 MCG DAILY NEW PRESCRIPTION TO PHARMACY RETURN IN SIX MONTHS ULTRASOUND OF NECK NEXT VISIT Instructions for taking levothyroxine Brand name is preferred OR SAME SOURCE Take thyroid pill all by itself Take thyroid pill one hour before food or 2 to 3 hours after food Heat, humidity, and direct sunlight will cause a loss of potency Never store thyroid pill in the bathroom LAB IN THREE MONTHS LAB IN SIX MONTHS IS THYROGLOBULIN CONTINUES TO INCREASE THEN WILL ORDER PET SCAN PROLIA 60 MG SUB q IN OFFICE PRESCRIPTION TO PHARMACY TO SEE IF PA NEEDED LBENZENE CONVERTER OPERATOR documented in this encounter Progress Notes * Yosi Bustamante MD - 06/14/2023 10:00 AM CST HISTORY / PROGRESS NOTE Date: 06/14/2023 Chief Complaint or Purpose for Referral: THYROID CANCER HYPOTHYROIDISM S/P THYROIDECTOMY S/P RADIOACTIVE IODINE METS TO BONE History of Present Illness: 62 YEAR OLD WHITE FEMALE ELE AND TUS 11/02/2022 dysphagia(+) FEELS LIKE MUSCLES CLOSING ESOPHAGUS NEEDS TO CHEW FOOD VERY FINELY No dyspnea No dysphonia No change size of neck No neck pain or discomfort No nervousness No shakiness No palpitations Weight stable since last visit Wt Readings from Last 3 Encounters: 06/14/23 65.8 kg (145 lb) 03/25/23 64.9 kg (143 lb) 02/11/23 62.1 kg (137 lb) BM daily No diarrhea No constipation nocturia TWO TIMES per night HAS BEDSIDE COMMODE No edema No proximal muscle weakness NO NAUSEA NO VOMITING HEADACHES IN THE AM (+) PARESTHESIAS IN LEFT ARM GETTING PT TYLENOL HELPS PAIN NEEDS HIP SURGERY ALSO LAB Latest Reference Range & Units 08/07/22 12:58 08/07/22 12:59 08/14/22 15:21 08/21/22 14:58 11/02/22 12:44 11/02/22 12:46 01/20/23 12:43 06/10/23 12:29 TSH 0.350 - 4.940 uIU/mL 165.839 (H) 208.891 (H) 1.600 <0.010 (L) <0.010 (L) T4 Free 0.7 - 1.5 ng/dL <0.4 (L) <0.4 (L) 1.6 (H) Thyroglobulin by ANTONIETA 1.5 - 38.5 ng/mL 383.0 (H) 629.0 (H) TNP 65.1 (H) 42.8 (H) 141.9 (H) Thyroglobulin Antibody 0.0 - 0.9 IU/mL <1.0 <1.0 <1.0 <1.0 <1.0 <1.0 Latest Reference Range & Units 10/08/21 16:37 10/24/21 15:04 12/08/21 09:12 03/19/22 12:31 05/01/22 13:17 07/02/22 12:44 TSH 0.350 - 4.940 uIU/mL <0.010 (L) <0.010 (L) <0.010 (L) 0.261 (L) 0.769 1.008 T4 Free 0.7 - 1.5 ng/dL 1.1 1.4 1.2 1.1 1.2 Thyroglobulin by ANTONIETA 1.5 - 38.5 ng/mL 17.9 26.9 71.9 (H) 151.8 (H) 205.9 (H) Thyroglobulin Antibody 0.0 - 0.9 IU/mL <1.0 <1.0 <1.0 <1.0 <1.0 [facility] Reference Range & Units 03/07/20 15:19 08/21/20 [...] IU/mL <1.0 <1.0 <1.0 <1.0 <1.0 <1.0 (L): Data is abnormally low (H): Data is abnormally high 08/19/2022 NUC MED PROCEDURE: NM THYROID WHOLE BODY SCAN, NM TUMOR LOCAL SPECT CT, DATE/TIME OF EXAM: 08/19/2022 3:24 PM, LOCATION [facility] INDICATION: E89.0: Postoperative hypothyroidism C73: Thyroid cancer [...] and the proximity to the spinal cord. ?Collected 10/02/2022 09:59 ?? Status: Final result ?? Visible to patient: Yes (not seen) ?? Dx: Cervical spine tumor ?? 0 Result Notes Component Final Diagnosis Spinal cord, extradural tumor, resection (A): - Metastatic carcinoma. - See comment. Spinal cord, extradural tumor, resection (B): - Metastatic carcinoma. - See comment. Comment: The histopathological and immunohistochemical features of this tumor, along with the patient's history, are compatible with a metastatic thyroid carcinoma. at 1313 11/02/2022 TUS Procedure Preformed: Ultrasound Only Nodule Size: THYROID GLAND SURGICALLY ABSENT LYMPH NODES IDENTIFIED RIGHT NECK LEVEL VA 0.63 X 0.32 CM WITH HILAR LINE LEVEL VB 0.30 X 0.26 CM LEVEL VB 0.31 X 0.30 CM LEFT NECK LEVEL VB 0.36 X 0.27 CM LEVEL IIA 0.60 X 0.36 CM LEVEL IIA 0.38 X 0.27 CM Echogenicity: NORMAL NECK Vascularity: NORMAL NECK Number of Nodules Present: SEE ABOVE Calcifications: NONE Borders: N/A (Brief 1-3; Ext. 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 [facility] of Occupational Health - Occupational Stress Questionnaire ? Feeling of Stress : Not at all Housing Stability: Low Risk (10/02/2022) ? Housing Stability Vital Sign ? Unable to Pay for Housing in the Last Year: No ? Number of Places Lived in the Last Year: 1 ? Unstable Housing in the Last Year: No Current Outpatient Medications: atorvastatin (Lipitor) 40 MG tablet, TAKE 1 TABLET BY MOUTH EVERYDAY AT BEDTIME, Disp: 90 tablet, Rfl: 1 buPROPion SR 12hr (Wellbutrin-SR) 100 MG tablet, Take 1 (one) tablet by mouth 2 times daily, Disp: , Rfl: calcitriol (Rocaltrol) 0.5 MCG capsule, TAKE 1 CAPSULE BY MOUTH TWICE A DAY, Disp: 60 capsule, Rfl:11 celecoxib (CeleBREX) 200 MG capsule, Take 1 (one) capsule by mouth once daily, Disp: 90 capsule, Rfl: 3 clonazePAM (KLONOPIN) 0.5 MG tablet, Take 1.5 (one and one-half) tablets by mouth once daily, Disp:, Rfl: cyclobenzaprine (Flexeril) 5 MG tablet, Take 1 (one) tablet by mouth 3 times daily as needed, Disp:90 tablet, Rfl: 1 famotidine (PEPCID) 20 MG tablet, Take 1 (one) tablet by mouth 2 times daily as needed, Disp: , Rfl: fluticasone propionate (Flonase) 50 MCG/ACT nasal spray, SPRAY 2 SPRAYS INTO EACH NOSTRIL EVERY DAY, Disp: 16 g, Rfl: 1 gabapentin (Neurontin) 300 MG capsule, Take 1 (one) capsule by mouth 3 times daily, Disp: 90 capsule, Rfl: 5 levothyroxine (Synthroid) 112 MCG tablet, TAKE 1 TABLET BY MOUTH EVERY DAY (Patient taking differently: Take 1 (one) tablet by mouth once daily), Disp: 90 tablet, Rfl: 4 naloxone HCl (Narcan) 4 MG/0.1ML nasal spray, [place] 1 (one) spray into the nose as [...] Anaphylaxis Physical Exam: Constitutional: Vital Signs: BP 126/84 (BP SITE: RIGHT ARM, BP POSITION: SITTING, BP Cuff Size: A) Pulse 85 Resp 17 Ht 1.575 m (5' 2) Wt 65.8 kg (145 lb) SpO2 97% Well developed, well nourished, white female, no acute distress, alert and oriented, normocephalic Appearance: WNL Eyes: Conjunctiva/lids WNL and EOM Intact ENT, Mouth: Hearing WNL and External ear/nose WNL Neck: No masses, symmetrical and Thyroid not enlarged Resp.:Effort nonlabored and Ausculation WNL CVS: S1, S2; no murmurs and No carotid bruits, pulse wnl Lymph: Neck WNL MS: Stable without dislocation, laxity and USES WALKER Areas Assessed: Head/neck, R/L upper extremities, Digits/nails and Inspection/palpatation of above WNL Skin: No rashes/lesions/ulcers and SKIN NORMAL TEXTURE AND TURGOR Neuro: Cranial nerves intact and DTR WNL Psych: Judgement/insight WNL, Oriented X 3, Memory WNL and Mood/affect WNL Accuchecks: NOT APPLICABLE Assessment: Patient Active Problem List: Psychophysiologic insomnia [...] after cancer treatment Cancer, metastatic to bone (CMS/HCC) Cervical spine tumor Gastroesophageal reflux disease Lumbar radiculopathy Secondary malignant neoplasm of bone (CMS/HCC) Malignant tumor of thyroid gland (CMS/HCC) PLAN CONTINUE LEVOTHYROXINE 112 DAILY EXCEPT Wednesday TAKE ONE AND A HALF THYROID PILLS NEW PRESCRIPTION TO PHARMACY CONTINUE CALCITRIOL 0.5 MCG DAILY NEW PRESCRIPTION TO PHARMACY RETURN IN SIX MONTHS ULTRASOUND OF NECK NEXT VISIT Instructions for taking levothyroxine Brand name is preferred OR SAME SOURCE Take thyroid pill all by itself Take thyroid pill one hour before food or 2 to 3 hours after food Heat, humidity, and direct sunlight will cause a loss of potency Never store thyroid pill in the bathroom LAB IN THREE MONTHS LAB IN SIX MONTHS IS THYROGLOBULIN CONTINUES TO INCREASE THEN WILL ORDER PET SCAN PROLIA 60 MG SUB q IN OFFICE PRESCRIPTION TO PHARMACY TO SEE IF PA NEEDED Postoperative hypothyroidism - Plan: levothyroxine (Synthroid) 112 MCG tablet, calcitriol (Rocaltrol) 0.5 MCG capsule, TSH, THYROGLOBULIN REFLEX PROFILE, RENAL FUNCTION PANEL Thyroid cancer (CMS/HCC) - Plan: calcitriol (Rocaltrol) 0.5 MCG capsule, TSH, THYROGLOBULIN REFLEX PROFILE, RENAL FUNCTION PANEL Hypocalcemia - Plan: calcitriol (Rocaltrol) 0.5 MCG capsule, TSH, THYROGLOBULIN REFLEX PROFILE, RENAL FUNCTION PANEL Other hypoparathyroidism - Plan: TSH, THYROGLOBULIN REFLEX PROFILE, RENAL FUNCTION PANEL Yosi Bustamante MD Professor of Internal Medicine Division of Endocrinology Department of Internal Medicine LBENZENE CONVERTER OPERATOR documented in this encounter Plan of Treatment Upcoming Encounters Date Type Department Care Team (Late st Contact Info) Description 07/25/2024 10:00 AM ETHYLBENZENE CONVERTER OPERATOR Office Visit [facility] - Endocrinology [address] [place] [phone] Yosi Bustamante MD [address] [place] [address] 2L Div [place] [address] 07/26/2024 10:00 AM ETHYLBENZENE CONVERTER OPERATOR Appointment [facility] RAD [address] [place] [address] Neri Delgado MD [address] [place] [address] 07/26/2024 10:00 AM ETHYLBENZENE CONVERTER OPERATOR Office Visit [facility] - ENT [address] [place] [phone] Myra Farmer, BOAT MASTER [address] [place] [address] 2L [place] [phone] 07/26/2024 11:15 AM ETHYLBENZENE CONVERTER OPERATOR Office Visit [facility] - ENT [address] [place] [phone] Neri Delgado MD [address] [place] [address] 08/02/2024 2:20 PM ETHYLBENZENE CONVERTER OPERATOR Appointment [facility] [address] [place] [address] 08/02/2024 3:00 PM ETHYLBENZENE CONVERTER OPERATOR Office Visit [facility] - Hematology/Oncology [address] [place] [phone] Remi Beckett MD [address] [place] [phone] 08/18/2024 1:45 PM ETHYLBENZENE CONVERTER OPERATOR Office Visit [facility] - ENT [address] [place] [phone] Neri Delgado MD [address] [place] [address] documented as of this encounter Visit Diagnoses Diagnosis Postoperative hypothyroidism- Primary Postsurgical hypothyroidism Thyroid cancer (HCC) Malignant neoplasm of thyroid gland Hypocalcemia Other hypoparathyroidism (HCC) documented in this encounter Care Teams High Energy Forming Equipment Operator Relationship Specialty Start Date End Date Yaya Villatoro MD [address] [phone] PCP - General Internal Medicine 05/04/23 Joseph Manzanares MD [address] [place] [phone] Internal Medicine 04/21/23 documented as of this encounter
--- OUTSIDE RECORDS SUMMARY | 2024-07-23 07:09 | XMS_ITS | Encounter Summary ---
Author Organization [facility] Address [address] [place] [address] Care Team Providers Care Civil Preparedness Coordinator Name Role Phone Tiana Naylor Primary Care Provider [phone] Joseph Manzanares MD Unavailable Reason for Visit * Reason Comments Refill Request Encounter Details Date Type Department Care Team (Late st Contact Info) Description 04/21/2023 Refill [facility] - Endocrinology [address] [place] [address], [place] [phone] Yosi Bustamante MD [address] [place] [address] of [place], [place] [phone] Refill Request Social History Tobacco Use Types [...] encounter Miscellaneous Notes * Telephone Encounter - Mikaela August MA - 04/22/2023 8:55 AM CDT Refill Request Brisa Hogan ELE: 11/02/2022May due: 05/17/2023May scheduled: 05/17/2023 LRF: 07/02/2022 Qty Disp: 40 # of refills: 0 Allergies: Allergies Allergen Reactions ??? Kiwi Extract Anaphylaxis Pended Medication Order: Requested Prescriptions Pending Prescriptions Disp Refills ??? liothyronine (Cytomel) 25 MCG tablet [Pharmacy Med Name: LIOTHYRONINE SOD 25 MCG TAB] 40 tablet0 Sig: TAKE 1 TABLET BY MOUTH TWICE A DAY FOR 20 DAYS STARTING 07-05-22 AND END ON 07-25-22 documented in this encounter Plan of Treatment Upcoming Encounters Date Type Department Care Team (Late st Contact Info) Description 07/25/2024 10:00 AM OPERATIONS LEAD [facility] Endocr[facility]ology [address] [place] [address], [place] [phone] Yosi Bustamante MD [address] [place] [address] [place] [address] 07/26/2024 10:00 AM OPERATIONS LEAD Appointment [facility] RAD [address] [place] [phone] Neri Delgado MD [address] [place] [address] 07/26/2024 10:00 AM OPERATIONS LEAD Office Visit [facility] - ENT [address] [place] [phone] Myra Farmer, DISTRICT REPRESENTATIVE [address] [place] [address] [place] [phone] 07/26/2024 11:15 AM OPERATIONS LEAD Office Visit [facility] - ENT [address] [place] [phone] Neri Delgado MD [address] [place] [address] 08/02/2024 2:20 PM OPERATIONS LEAD Appointment [facility] [address] [place] [address] 08/02/2024 3:00 PM OPERATIONS LEAD Office Visit [facility] - Hematology/Oncology [address] [place] [phone] Remi Beckett MD [address] [place] [phone] 08/18/2024 1:45 PM OPERATIONS LEAD Office Visit [facility] - ENT [address] [place] [phone] Neri Delgado MD [address] [place] [address] documented as of this encounter Visit Diagnoses Diagnosis Postoperative hypothyroidism Postsurgical hypothyroidism Thyroid cancer (HCC) Malignant neoplasm of thyroid gland Hypocalcemia Other hypoparathyroidism (HCC) documented in this encounter Care Teams Civil Preparedness Coordinator Relationship Specialty Start Date End Date Tiana Naylor DO [address] [facility] [place] [address] PCP - General Internal Medicine 04/21/23 05/03/23 Joseph Manzanares MD [address] [place] [address] Internal Medicine 04/21/23 documented as of this encounter
--- OUTSIDE RECORDS SUMMARY | 2024-07-23 07:09 | XMS_ITS | Encounter Summary ---
Author Organization [facility] Address [address] [facility] [place] [address] Care Team Providers Care Vault Keeper Name Role Phone Joseph Manzanares MD Unavailable Yaya Villatoro MD Primary Care Provider [phone] Encounter Details Date Type Department Care Team (Latest Contact Info) Description 06/14/2023 Travel Social History Tobacco Use Types Packs/Day [...] st Contact Info) Description 07/25/2024 10:00 AM ORTHO/PROSTHETIC AIDE Office Visit [facility] - Endocrinology [address] [place] [phone] Yosi Bustamante MD [address] [place] [address] 2L [place] [address] 07/26/2024 10:00 AM ORTHO/PROSTHETIC AIDE Appointment [facility] DI[facility] RAD [address] [place] [address] Neri Delgado MD [address] [place] [address] 07/26/2024 10:00 AM ORTHO/PROSTHETIC AIDE Office Visit [facility] - ENT [address] [place] [phone] Myra Farmer, CLIENT RELATIONSHIP MANAGER [address] [place] [address] 2L [place] [phone] 07/26/2024 11:15 AM ORTHO/PROSTHETIC AIDE Office Visit [facility] - ENT [address] [place] [phone] Neri Delgado MD [address] [place] [address] 08/02/2024 2:20 PM ORTHO/PROSTHETIC AIDE Appointment [facility] [address] [place] [address] 08/02/2024 3:00 PM ORTHO/PROSTHETIC AIDE Office Visit [facility] - Hematology/Oncology [address] [place] [phone] Remi Beckett MD [address] [place] [phone] 08/18/2024 1:45 PM ORTHO/PROSTHETIC AIDE Office Visit [facility] - ENT [address] [place] [phone] Neri Delgado MD [address] [place] [address] documented as of this encounter Visit Diagnoses Not on filedocumented in this encounter Care Teams Vault Keeper Relationship Specialty Start Date End Date Yaya Villatoro MD [address] [phone] PCP - General Internal Medicine 05/04/23 Joseph Manzanares MD [address] [place] [phone] Internal Medicine 04/21/23 documented as of this encounter
--- OUTSIDE RECORDS SUMMARY | 2024-07-23 07:09 | XMS_ITS | Encounter Summary ---
Author Organization [facility] Health Address [address] [place] [address] Care Team Providers Care Mobile Ui/Ux Designer Name Role Phone Joseph Manzanares MD Unavailable Yaay Villatoro MD Primary Care Provider +1- [phone] Reason for Visit * Reason Comments Refill Request Encounter Details Date Type Department Care Team (Late st Contact Info) Description 05/28/2023 Refill [facility] - Endocrinology [address] [place] [address], [place] [phone] Yosi Bustamante MD [address] [place] [address] [place] [address] Refill Request Social History Tobacco Use Types [...] Date Recorded PHQ2 TOTAL SCORE 1 11/25/2022 [facility] of Occupat ional Health - [...] encounter Miscellaneous Notes * Telephone Encounter - Chao Jones MA - 05/28/2023 11:08 AM CST Refill Request Brisa Riosifton ELE: 11/02/2022 NOV scheduled: Visit date not found LRF: 02/22/22 Qty Disp: 60 # of refills: 1 Allergies: Allergies Allergen Reactions ??? Kiwi Extract Anaphylaxis Pended Medication Order: Requested Prescriptions Pending Prescriptions Disp Refills ??? calcitriol (Rocaltrol) 0.5 MCG capsule [Pharmacy Med Name: CALCITRIOL 0.5 MCG CAPSULE] 60 capsule 11 Sig: TAKE 1 CAPSULE BY MOUTH TWICE A DAY ??? liothyronine (Cytomel) 25 MCG tablet [Pharmacy Med Name: LIOTHYRONINE SOD 25 MCG TAB] 40 tablet0 Sig: TAKE 1 TABLET BY MOUTH TWICE A DAY FOR 20 DAYS STARTING 07-05-22 AND END ON 07-25-22 ECTOR TIMERS documented in this encounter Plan of Treatment Upcoming Encounters Date Type Department Care Team (Late st Contact Info) Description 07/25/2024 10:00 AM INSPECTOR TIMERS Office Visit [facility] - Endocrinology [address] [place] [phone] Yosi Bustamante MD [address] [place] [address] [place] [address] 07/26/2024 10:00 AM INSPECTOR TIMERS Appointment [facility] DI[facility]IC RAD [address] [place] [address] Neri Delgado MD [address] [place] [address] 07/26/2024 10:00 AM INSPECTOR TIMERS Office Visit [facility] - ENT [address] [place] [phone] Myra Farmer, CLIENT SERVICES COORDINATOR [address] [place] [address] [place] [phone] 07/26/2024 11:15 AM INSPECTOR TIMERS [facility] [address] [place] [phone] Neri Delgado MD [address] [place] [address] 08/02/2024 2:20 PM INSPECTOR TIMERS Appointment [facility] [address] [place] [address] 08/02/2024 3:00 PM INSPECTOR TIMERS Office Visit [facility] - Hematology/Oncology [address] [place] [phone] Remi Beckett MD [address] [place] [phone] 08/18/2024 1:45 PM INSPECTOR TIMERS Office Visit [facility] - ENT [address] [place] [phone] Neri Delgado MD [address] [place] [address] documented as of this encounter Visit Diagnoses Diagnosis Postoperative hypothyroidism Postsurgical hypothyroidism Thyroid cancer (HCC) Malignant neoplasm of thyroid gland Hypocalcemia Other hypoparathyroidism (HCC) documented in this encounter Care Teams Mobile Ui/Ux Designer Relationship Specialty Start Date End Date Yaya Villatoro MD [address] [place] [phone] PCP - General Internal Medicine 05/04/23 Joseph Manzanares MD [address] [place] [address] Internal Medicine 04/21/23 documented as of this encounter
--- OUTSIDE RECORDS SUMMARY | 2024-07-23 07:09 | XMS_ITS | Encounter Summary ---
Author Organization [facility] Address [address] [place] [address] Care Team Providers Care Buttonhole Marker Name Role Phone Joseph Manzanares MD Unavailable Yaya Villatoro MD Primary Care Provider +1- [phone] Reason for Referral * Radiology Services (Routine) - Closed Specialty Diagnoses / Procedures Referred By Contact Referred To Contact Positron Emission Tomography Diagnoses Postoperative hypothyroidism Thyroid cancer (HCC) Other hypoparathyroidism (HCC) Procedures PET CT WHOLE BODY Yosi Bustamante MD [address] [place] [address] [address] [place] [address] [facility] Pet Op [address] [place] [address] Referral ID Status Reason Start Date Expiration Date Visits Re quested Visits Authorized [id number] Closed 10/04/2023 01/02/2024 1 1 Reason for Visit * Radiology Services (Routine) - Closed Specialty Diagnoses / Procedures Referred By Contact Referred To Contact Positron Emission Tomography Diagnoses Postoperative hypothyroidism Thyroid cancer (HCC) Other hypoparathyroidism (HCC) Procedures PET CT WHOLE BODY Yosi Bustamante MD [address] [facility] [address] [place] [address] [facility] Pet Op [address] [place] [address] Referral ID Status Reason Start Date Expiration Date Visits Re quested Visits Authorized [id number] Closed 10/04/2023 01/02/2024 1 1 Encounter Details Date Type Department Care Team (Latest Contact Info) Description 10/06/2023 1:29 PM CDT - 10/06/2023 1:45 PM CDT Hospital Encounter [facility] PET [address] [place] [address] Yosi Bustamante MD [address] [facility] 2[address] [facility] [place] [address] Discharge Disposition: Home or Self Care Social [...] Date Recorded PHQ2 TOTAL SCORE 1 11/25/2022 [facility] of Occupat ional Health - Occupational Stress [...] naloxone HCl (Narcan) 4 MG/0.1ML nasal spray [place] 1 (one) spray into the nose as [...] st Contact Info) Description 07/25/2024 10:00 AM MACHINE ETCHER Office Visit [facility] Group - Endocrinology [address] [place] [phone] Yosi Bustamante MD [address] [place] [address] 2L Div [place] [address] 07/26/2024 10:00 AM MACHINE ETCHER Appointment [facility] DIAGNOSTIC RAD [address] [place] [phone] Neri Delgado MD [address] [place] [address] 07/26/2024 10:00 AM MACHINE ETCHER Office Visit [facility] - ENT [address] [place] [phone] Myra Farmer, FACTORER [address] [place] [address] 2L [place] [phone] 07/26/2024 11:15 AM MACHINE ETCHER Office Visit [facility] - ENT [address] [place] [phone] Neri Delgado MD [address] [place] [address] 08/02/2024 2:20 PM MACHINE ETCHER Appointment [facility] [address] [place] [address] 08/02/2024 3:00 PM MACHINE ETCHER Office Visit [facility] - Hematology/Oncology [address] [place] [phone] Remi Beckett MD [address] [place] [phone] 08/18/2024 1:45 PM MACHINE ETCHER Office Visit [facility] - ENT [address] [place] [phone] Neri Delgado MD [address] [place] [address] documented as of this encounter Procedures Procedure Name Priority Date/Time Associated Diagnosis Comments PET CT WHOLE BODY Routine 10/06/2023 3:3 9 PM CDT Postoperative hypothyroidism Thyroid cancer (HCC) Other hypoparathyroidism documented in this encounter Results * PET CT WHOLE BODY (10/06/2023 3:39 PM CDT) Anatomical Region Laterality Modality Positron Emissio n Tomography (PET) 10/06/2023 3:25 PM CDT Impressions 10/06/2023 5:11 PM CDT IMPRESSION: 1.Postoperative changes of a C2-T2 posterior [...] follow-up. Report dictated by Froylan Ny DO (vice president of instruction). > Dictated by Froylan Ny DO (Plant Technician) 10/06/2023 3:25 PM Tiesha Mckeon DO have personally reviewed and interpreted this examination/study. > Interpreting Provider: Tiesha Sy DO on 10/06/2023 5:11 PM Narrative 10/06/2023 5:11 PM CDT PROCEDURE: ??PET CT WHOLE BODY, DATE/TIME OF EXAM: ??10/06/2023 3:39 PM, LOCATION ??[facility] INDICATION: E89.0: Postoperative hypothyroidism C73: Thyroid cancer (HCC) E20.89: Other hypoparathyroidism ADDITIONAL CLINICAL INFORMATION: Ordering Provider Reason For Exam: ??thyroid cancer, increasing quantitative thyroglobulin COMPARISON: PET/CT dated 12/25/2021 and nuclear medicine thyroid scan dated 08/19/2022. MRI cervical spine dated 10/01/2023 HISTORY: 63-year-old female with metastatic recurrent papillary thyroid carcinoma who is now status post total thyroidectomy and C-spine fixation due to bony metastasis. Thyroglobulin was 385.5 on 09/09/2023. Evaluate for subsequent treatment strategy. TECHNIQUE: ??8.70 mCi of F-18 FDG by IV in [...] Severe left hip osteoarthritis with reactive changes. Procedure Note Tiesha Sy, DO - 10/06/2023 PROCEDURE: PET CT WHOLE BODY, DATE/TIME OF EXAM: 10/06/2023 3:39 PM, LOCATION [facility] INDICATION: E89.0: Postoperative hypothyroidism C73: Thyroid cancer (HCC) E20.89: Other hypoparathyroidism ADDITIONAL CLINICAL INFORMATION: Ordering Provider Reason For Exam: thyroid cancer, increasingquantitative thyroglobulin COMPARISON: PET/CT dated 12/25/2021 and nuclear medicine thyroid scan date08/19/2022. MRI cervical spine dated 10/01/2023 HISTORY: 63-year-old female with metastatic recurrent papillary thyroid carcinoma who is now status post total thyroidectomy and C-spinefixation due to bony metastasis. Thyroglobulin was 385.5 on 09/09/2023. Evaluatefor subsequent treatment strategy. TECHNIQUE: 8.70 mCi of F-18 FDG by IV in the right antecubital fossa. PET/CT image acquisition from top of the head to feet after approximately 60 minutes post-injection with the CT being low-dose, non-contrast. No separate report for the CT. CT was used for attenuation correction and anatomic localization. Blood glucose level at the time of injection was98 mg/dl. Patient's BMI is 26.08 kg/m??. FINDINGS: For reference, SUVmax of liver is 3.5. Head and neck: Normal metabolic uptake in the brain. Mild periodontal disease. Withinthe right thyroidectomy bed, there is a small focus of FDG activity with aSUV max of 5.9. Chest: There is a [...] FDG activity in the cervical spine with aSUV max of 6.6 at C2 and 8.9 [...] mm right lower lobe pulmonary nodule without significantFDG uptake which is too small to characterize. Recommend continuedfollow-up. Report dictated by Froylan Ny DO (vice president of instruction). > Dictated by Froylan Ny DO (Plant Technician) 10/06/2023 3:25 PM ITiesha DO have personally reviewed and interpreted this examination/study. > Interpreting Provider: Tiesha Sy DO on 10/06/2023 5:11 PM Yosi Bustamante MD NM ORDERABLES documented in this encounter Visit Diagnoses Diagnosis Postoperative hypothyroidism Postsurgical hypothyroidism Thyroid cancer (HCC) Malignant neoplasm of thyroid gland Other hypoparathyroidism (HCC) documented in this encounter Care Teams Buttonhole Marker Relationship Specialty Start Date End Date Yaya Villatoro MD [address] [facility] [address] [place] [phone] PCP - General Internal Medicine 05/04/23 Joseph Manzanares MD [address] [place] [phone] Internal Medicine 04/21/23 documented as of this encounter
--- OUTSIDE RECORDS SUMMARY | 2024-07-23 07:09 | XMS_ITS | Encounter Summary ---
Author Organization [facility] Health Address [address] [place] [address] Care Team Providers Care Applications Instructor Name Role Phone Joseph Manzanares MD Unavailable Yaya Villatoro MD Primary Care Provider +1- [phone] Reason for Visit * Reason Onset Date Comments Appointment 10/14/2023 Encounter Details Date Type Department Care Team (Late st Contact Info) Description 10/14/2023 Telephone [facility] - Hematology/Oncology [address] [place] [address] Mackenzie Alcala, RN Appointment Social History Tobacco Use Types Packs/Day [...] Date Recorded PHQ2 TOTAL SCORE 1 11/25/2022 [facility] of Occupat ional Health - Occupational [...] encounter Miscellaneous Notes * Telephone Encounter - Mackenzie Alcala RN - 10/14/2023 1:47 PM CDT Spoke with patient to schedule new patient oncology appointment. Tentatively scheduled on 10/18 but need to coordinate with radiation as patient's preferred time will cause an overlap. Patient provided office information/parking/check in instructions. Patient without any questions. Mackenzie Alcala RN documented in this encounter Plan of Treatment Upcoming Encounters Date Type Department Care Team (Late st Contact Info) Description 07/25/2024 10:00 AM TELETYPE ADJUSTER Office Visit [facility] - Endocrinology [address] [place] [phone] Yosi Bustamante MD [address] [place] [address] 2L [place] [address] 07/26/2024 10:00 AM TELETYPE ADJUSTER Appointment [facility] DIAGNOSTIC RAD [address] [place] [address] Neri Delgado MD [address] [place] [address] 07/26/2024 10:00 AM TELETYPE ADJUSTER Office Visit [facility] - ENT [address] [place] [phone] Myra Farmer, METAL MODEL BUILDER [address] [place] [address] 2L [place] [address] 07/26/2024 11:15 AM TELETYPE ADJUSTER Office Visit [facility] - ENT [address] [place] [phone] Neri Delgado MD [address] [place] [address] 08/02/2024 2:20 PM TELETYPE ADJUSTER Appointment [facility] [address] [place] [address] 08/02/2024 3:00 PM TELETYPE ADJUSTER Office Visit [facility] - Hematology/Oncology [address] [place] [phone] Remi Beckett MD [address] [place] [phone] 08/18/2024 1:45 PM TELETYPE ADJUSTER Office Visit [facility] - ENT [address] [place] [phone] Neri Delgado MD [address] [place] [address] documented as of this encounter Visit Diagnoses Not on filedocumented in this encounter Care Teams Applications Instructor Relationship Specialty Start Date End Date Yaya Villatoro MD [address] [place] [phone] PCP - General Internal Medicine 05/04/23 Joseph Manzanares MD [address] [place] [phone] Internal Medicine 04/21/23 documented as of this encounter
--- OUTSIDE RECORDS SUMMARY | 2024-07-23 07:09 | XMS_ITS | Encounter Summary ---
Author Organization [facility] Health Address [address] [facility] [place] [address] Care Team Providers Care Imaging Analyst Name Role Phone Joseph Manzanares MD Unavailable Yaya Villatoro MD Primary Care Provider +1- [phone] Encounter Details Date Type Department Care Team (Latest Contact Info) Description 10/01/2023 Travel Social History Tobacco Use Types Packs/Day [...] Date Recorded PHQ2 TOTAL SCORE 1 11/25/2022 [facility] of Occupat ional Health - Occupational [...] st Contact Info) Description 07/25/2024 10:00 AM DIESEL LOCOMOTIVE CRANE OPERATOR [facility] [address] [place] [phone] Yosi Bustamante MD [address] [place] [address] 2L [place] [address] 07/26/2024 10:00 AM DIESEL LOCOMOTIVE CRANE OPERATOR Appointment [facility] DIAGNOSTIC RAD [address] [place] [address] Neri Delgado MD [address] [place] [address] 07/26/2024 10:00 AM DIESEL LOCOMOTIVE CRANE OPERATOR Office Visit [facility] - ENT [address] [place] [phone] Myra Farmer, MEDICAL EQUIPMENT SALES [address] [place] [address] 2L [place] [phone] 07/26/2024 11:15 AM DIESEL LOCOMOTIVE CRANE OPERATOR Office Visit [facility] - ENT [address] [place] [phone] Neri Delgado MD [address] [place] [address] 08/02/2024 2:20 PM DIESEL LOCOMOTIVE CRANE OPERATOR Appointment [facility] [address] [place] [address] 08/02/2024 3:00 PM DIESEL LOCOMOTIVE CRANE OPERATOR Office Visit [facility] - Hematology/Oncology [address] [place] [phone] Remi Beckett MD [address] [place] [phone] 08/18/2024 1:45 PM DIESEL LOCOMOTIVE CRANE OPERATOR Office Visit [facility] - ENT [address] [place] [address] Neri Delgado MD [address] [place] [address] documented as of this encounter Visit Diagnoses Not on filedocumented in this encounter Care Teams Imaging Analyst Relationship Specialty Start Date End Date Yaya Villatoro MD [address] [place] [address] [phone] PCP - General Internal Medicine 05/04/23 Joseph Manzanares MD [address] [place] [phone] Internal Medicine 04/21/23 documented as of this encounter
--- OUTSIDE RECORDS SUMMARY | 2024-07-23 07:09 | XMS_ITS | Encounter Summary ---
Author Organization [facility] Health Address [address] [place] [address] Care Team Providers Care Stereotyper Helper Name Role Phone Joseph Manzanares MD Unavailable Yaya Villatoro MD Primary Care Provider +1- [phone] Encounter Details Date Type Department Care Team (Latest Contact Info) Description 05/10/2023 Travel Social History Tobacco Use Types Packs/Day [...] Recorded PHQ2 TOTAL SCORE 1 11/25/2022 [facility] of Occupat ional Health [...] Contact Info) Description 07/25/2024 10:00 AM HEALTH TECHNICIAN [facility] [address] [place] [phone] Yosi Bustamante MD [address] [place] [address] 2L [place] [address] 07/26/2024 10:00 AM HEALTH TECHNICIAN Appointment [facility] DIAGNOSTIC RAD [address] [place] [phone] Neri Delgado MD [address] [place] [address] 07/26/2024 10:00 AM HEALTH TECHNICIAN Office Visit [facility] - ENT [address] [place] [phone] Myra Farmer, MASTER DATA ANALYST [address] [place] [address] 2L [place] [phone] 07/26/2024 11:15 AM HEALTH TECHNICIAN Office Visit [facility] - ENT [address] [place] [phone] Neri Delgado MD [address] [place] [address] 08/02/2024 2:20 PM HEALTH TECHNICIAN Appointment [facility] [address] [place] [address] 08/02/2024 3:00 PM HEALTH TECHNICIAN Office Visit [facility] Group - Hematology/Oncology [address] [place] [phone] Remi Beckett MD [address] [place] [phone] 08/18/2024 1:45 PM HEALTH TECHNICIAN Office Visit [facility] - ENT [address] [place] [phone] Neri Delgado MD [address] [place] [address] documented as of this encounter Visit Diagnoses Not on filedocumented in this encounter Care Teams Stereotyper Helper Relationship Specialty Start Date End Date Yaya Villatoro MD [address] [phone] PCP - General Internal Medicine 05/04/23 Joseph Manzanares MD [address] [place] [phone] Internal Medicine 04/21/23 documented as of this encounter
--- OUTSIDE RECORDS SUMMARY | 2024-07-23 07:09 | XMS_ITS | Encounter Summary ---
Author Organization [facility] Health Address [address] [address] Care Team Providers Care Dock Operator Name Role Phone Joseph Manzanares MD Unavailable Yaya Villatoro MD Primary Care Provider +1- [phone] Encounter Details Date Type Department Care Team (Late st Contact Info) Description 06/08/2023 Telephone [facility] - Endocrinology [address] [place] [address], [place] [phone] Yosi Bustamante MD [address] [place] [address] [place] [address] Social History Tobacco Use Types Packs/Day Years [...] Date Recorded PHQ2 TOTAL SCORE 1 11/25/2022 [facility] of Occupat ional Health - Occupational [...] encounter Miscellaneous Notes * Telephone Encounter - Jaquelin Izquierdo LPN - 06/08/2023 10:30 AM DIE BARBER Patient called regarding lab orders being placed. Patient stated she will have them done before herappointment BARBER * Telephone Encounter - June Denise - 06/08/2023 9:51 AM CST Current Provider name: Dr. Yosi Bustamante Reason for call: Mrs. Brisa Hogan rescheduled her May appt. it looks like per the 11/02/22 AVS, she is to get labs done for this appt so you can FU those labs. There are no labs in her chart, could you order labs. He appt is 06/14/23. Thanks. Patient Call Back number: [phone] BARBER documented in this encounter Plan of Treatment Upcoming Encounters Date Type Department Care Team (Late st Contact Info) Description 07/25/2024 10:00 AM DIE BARBER Office Visit [facility] Group - Endocrinology [address] [place] [phone] Yosi Bustamante MD [address] [place] [address] [place] [address] 07/26/2024 10:00 AM DIE BARBER Appointment [facility] DI[facility] RAD [address] [place] [address] Neri Delgado MD [address] [place] [address] 07/26/2024 10:00 AM DIE BARBER Office Visit [facility] - ENT [address] [place] [phone] Myra Farmer, GASKET MAKER [address] [place] [address] [place] [phone] 07/26/2024 11:15 AM DIE BARBER [facility] [address] [place] [phone] Neri Delgado MD [address] [place] [address] 08/02/2024 2:20 PM DIE BARBER Appointment [facility] [address] [place] [address] 08/02/2024 3:00 PM DIE BARBER Office Visit [facility] Group - Hematology/Oncology [address] [place] [phone] Remi Beckett MD [address] [place] [phone] 08/18/2024 1:45 PM DIE BARBER [facility] [address] [place] [phone] Neri Delgado MD [address] [place] [address] documented as of this encounter Visit Diagnoses Not on filedocumented in this encounter Care Teams Dock Operator Relationship Specialty Start Date End Date Yaya Villatoro MD [address] [place] [phone] PCP - General Internal Medicine 05/04/23 Joseph Manzanares MD [address] [place] [address] Internal Medicine 04/21/23 documented as of this encounter
--- OUTSIDE RECORDS SUMMARY | 2024-07-23 07:09 | XMS_ITS | Encounter Summary ---
Author Organization [facility] Health Address [address] [facility] [place] [address] Care Team Providers Care Loan Associate Name Role Phone Joseph Manzanares MD Unavailable Yaya Villatoro MD Primary Care Provider +1- [phone] Reason for Visit * Reason Onset Date Comments Appointment 10/15/2023 Encounter Details Date Type Department Care Team (Late st Contact Info) Description 10/15/2023 Telephone [facility] ONC [address] [place] [address] Alize French, JOSY Appointment Social [...] Date Recorded PHQ2 TOTAL SCORE 1 11/25/2022 [facility] - Occupational Stress Questionnaire Answer Date Recorded [...] Telephone Encounter - Alize French RN - 10/15/2023 9:40 AM CDT Spoke with the patient, informed Dr. Herman office is requesting her appointment on 10/19/2023 be adjusted to correlate her appointment. Coordinated and informed of her rescheduled appointment time on 10/19/2023 @ 0930. documented in this encounter Plan of Treatment Upcoming Encounters Date Type Department Care Team (Late st Contact Info) Description 07/25/2024 10:00 AM AN/SYQ 13 NAV/C2 OPERATOR Office Visit [facility] - Endocrinology [address] [place] [phone] Yosi Bustamante MD [address] [place] [address] 2L [place] [address] 07/26/2024 10:00 AM AN/SYQ 13 NAV/C2 OPERATOR Appointment [facility] DIAGNOSTIC RAD [address] [place] [address] Neri Delgado MD [address] [place] [address] 07/26/2024 10:00 AM AN/SYQ 13 NAV/C2 OPERATOR Office Visit [facility] - ENT [address] [place] [phone] Myra Farmer, RESEARCH ASSOCIATE MOLECULAR BIOLOGY [address] [place] [address] 2L [place] [phone] 07/26/2024 11:15 AM AN/SYQ 13 NAV/C2 OPERATOR Office Visit [facility] - ENT [address] [place] [phone] Neri Delgado MD [address] [place] [address] 08/02/2024 2:20 PM AN/SYQ 13 NAV/C2 OPERATOR Appointment [facility] [address] [place] [address] 08/02/2024 3:00 PM AN/SYQ 13 NAV/C2 OPERATOR Office Visit [facility] - Hematology/Oncology [address] [place] [phone] Remi Beckett MD [address] [place] [phone] 08/18/2024 1:45 PM AN/SYQ 13 NAV/C2 OPERATOR Office Visit [facility] Group - ENT [address] [place] [phone] Neri Delgado MD [address] [place] [address] documented as of this encounter Visit Diagnoses Not on filedocumented in this encounter Care Teams Loan Associate Relationship Specialty Start Date End Date Yaya Villatoro MD [address] [place] [phone] PCP - General Internal Medicine 05/04/23 Joseph Manzanares MD [address] [place] [phone] Internal Medicine 04/21/23 documented as of this encounter
--- OUTSIDE RECORDS SUMMARY | 2024-07-23 07:09 | XMS_ITS | Encounter Summary ---
Author Organization [facility] Health Address [address] [facility] [place] [address] Care Team Providers Care Transcription Coordinator Name Role Phone Joseph Manzanares MD Unavailable Yaya Villatoro MD Primary Care Provider +1- [phone] Encounter Details Date Type Department Care Team (Latest Contact Info) Description 10/04/2023 Travel Social History Tobacco Use Types Packs/Day [...] st Contact Info) Description 07/25/2024 10:00 AM CAMERA REPAIRMAN [facility] End[facility] [address] [place] [phone] Yosi Bustamante MD [address] [place] [address] 2L [place] [address] 07/26/2024 10:00 AM CAMERA REPAIRMAN Appointment [facility] DIAGNOSTIC RAD [address] [place] [address] Neri Delgado MD [address] [place] [address] 07/26/2024 10:00 AM CAMERA REPAIRMAN Office Visit [facility] - ENT [address] [place] [phone] Myra Farmer, CONCRETE STONE FABRICATING SUPERVISOR [address] [place] [address] 2L [place] [phone] 07/26/2024 11:15 AM CAMERA REPAIRMAN Office Visit [facility] - ENT [address] [place] [phone] Neri Delgado MD [address] [place] [address] 08/02/2024 2:20 PM CAMERA REPAIRMAN Appointment [facility] CENTER [address] [place] [address] 08/02/2024 3:00 PM CAMERA REPAIRMAN Office Visit [facility] - Hematology/Oncology [address] [place] [phone] Remi Beckett MD [address] [place] [phone] 08/18/2024 1:45 PM CAMERA REPAIRMAN Office Visit [facility] - ENT [address] [place] [address] Neri Delgado MD [address] [place] [address] documented as of this encounter Visit Diagnoses Not on filedocumented in this encounter Care Teams Transcription Coordinator Relationship Specialty Start Date End Date Yaya Villatoro MD [address] [phone] PCP - General Internal Medicine 05/04/23 Joseph Manzanares MD [address] [place] [phone] Internal Medicine 04/21/23 documented as of this encounter
--- OUTSIDE RECORDS SUMMARY | 2024-07-23 07:09 | XMS_ITS | Encounter Summary ---
Author Organization [facility] Health Address [address] [facility] [place] [address] Care Team Providers Care Designer Writer Name Role Phone Joseph Manzanares MD Unavailable Yaya Villatoro MD Primary Care Provider +1- [phone] Encounter Details Date Type Department Care Team (Latest Contact Info) Description 10/06/2023 Travel Social History Tobacco Use Types Packs/Day [...] Contact Info) Description 07/25/2024 10:00 AM SUPERVISOR FELLING BUCKING [facility] End[facility] [address] [place] [phone] Yosi Bustamante MD [address] [place] [address] 2L [place] [address] 07/26/2024 10:00 AM SUPERVISOR FELLING BUCKING Appointment [facility] DIAGNOSTIC RAD [address] [place] [address] Neri Delgado MD [address] [place] [address] 07/26/2024 10:00 AM SUPERVISOR FELLING BUCKING Office Visit [facility] - ENT [address] [place] [phone] Myra Farmer, MANAGER POST [address] [place] [address] 2L [place] [phone] 07/26/2024 11:15 AM SUPERVISOR FELLING BUCKING Office Visit [facility] ENT [address] [place] [phone] Neri Delgado MD [address] [place] [address] 08/02/2024 2:20 PM SUPERVISOR FELLING BUCKING Appointment [facility] [address] [place] [address] 08/02/2024 3:00 PM SUPERVISOR FELLING BUCKING Office Visit [facility] Group - Hematology/Oncology [address] [place] [phone] Remi Beckett MD [address] [place] [phone] 08/18/2024 1:45 PM SUPERVISOR FELLING BUCKING Office Visit [facility] ENT [address] [place] [address] Neri Delgado MD [address] [place] [address] documented as of this encounter Visit Diagnoses Not on filedocumented in this encounter Care Teams Designer Writer Relationship Specialty Start Date End Date Yaya Villatoro MD [address] [phone] PCP - General Internal Medicine 05/04/23 Joseph Manzanares MD [address] [place] [phone] Internal Medicine 04/21/23 documented as of this encounter
--- OUTSIDE RECORDS SUMMARY | 2024-07-23 07:09 | XMS_ITS | Encounter Summary ---
Author Organization [facility] Health Address [address] [facility] [place] [address] Care Team Providers Care Foundry Tender Name Role Phone Joseph Manzanares MD Unavailable Yaya Villatoro MD Primary Care Provider +1- [phone] Reason for Visit * Reason Comments Med Change Request Encounter Details Date Type Department Care Team (Late st Contact Info) Description 06/27/2023 Refill [facility] - Internal Med [address] [facility], [place] [phone] Tiana Naylor, DO [address] [facility] [place], [place] [id number] Med Change Request Social History Tobacco Use [...] Date Recorded PHQ2 TOTAL SCORE 1 11/25/2022 [facility] [place] [facility] Occup[facility] ional Health - Occupational [...] st Contact Info) Description 07/25/2024 10:00 AM LSAT INSTRUCTOR Office Visit [facility] - Endocrinology [address] [place] [phone] Yosi Bustamante MD [address] [place] [address] 2L [place] [address] 07/26/2024 10:00 AM LSAT INSTRUCTOR Appointment [facility] DIAGNOSTIC RAD [address] [place] [address] Neri Delgado MD [address] [place] [address] 07/26/2024 10:00 AM LSAT INSTRUCTOR Office Visit [facility] - ENT [address] [place] [phone] Myra Farmer, MANAGER CODE [address] [place] [address] 2L [place] [address] 07/26/2024 11:15 AM LSAT INSTRUCTOR Office Visit [facility] [address] [place] [phone] Neri Delgado MD [address] [place] [address] 08/02/2024 2:20 PM LSAT INSTRUCTOR Appointment [facility] [address] [place] [address] 08/02/2024 3:00 PM LSAT INSTRUCTOR Office Visit [facility]ician Group - Hematology/Oncology [address] [place] [phone] Remi Beckett MD [address] [place] [phone] 08/18/2024 1:45 PM LSAT INSTRUCTOR Office Visit [facility] Group - ENT [address] [place] [phone] Neri Delgado MD [address] [place] [address] documented as of this encounter Visit Diagnoses Diagnosis Allergic rhinitis, unspecified seasonality, unspecified trigger documented in this encounter Care Teams Foundry Tender Relationship Specialty [place] [address] [place] [phone] PCP - General Internal Medicine 05/04/23 Joseph Manzanares MD [facility]5 [place] [address] Internal Medicine 04/21/23 documented as of this encounter
--- OUTSIDE RECORDS SUMMARY | 2024-07-23 07:09 | XMS_ITS | Encounter Summary ---
Author Organization [facility] Address [address] [facility] [place] [address] Care Team Providers Care Custom Shoemaker Name Role Phone Joseph Manzanares MD Unavailable Yaya Villatoro MD Primary Care Provider +1- [phone] Reason for Visit * Radiology Services (Routine) - Closed Specialty Diagnoses / Procedures Referred By Contact Referred To Contact Positron Emission Tomography Diagnoses Postoperative hypothyroidism Thyroid cancer (HCC) Other hypoparathyroidism (HCC) Procedures PET CT WHOLE BODY Yosi Bustamante MD [address] [place] [address] 2[place] [address] [facility] Pet Op [address] [place] [address] Referral ID Status Reason Start Date Expiration Date Visits Re quested Visits Authorized [id number] Closed 10/04/2023 01/02/2024 1 1 Encounter Details Date Type Department Care Team (Latest Contact Info) Description 10/06/2023 1:46 PM CDT - 10/06/2023 11:59 PM CDT Hospital Encounter [facility] PET [address] [place] [address] Yosi Bustamante MD [address] [place] [address] 2[place] [address] Discharge Disposition: Home or Self Care Social [...] Date Recorded PHQ2 TOTAL SCORE 1 11/25/2022 [facility] [place] of Occupat ional Health - Occupational Stress [...] Contact Info) Description 07/25/2024 10:00 AM PATIENT REGISTRATION CLERK Office Visit [facility] - Endocrinology [address] [place] [phone] Yosi Bustamante MD [address] [place] [address] 2L [place] [address] 07/26/2024 10:00 AM PATIENT REGISTRATION CLERK Appointment [facility] DIAGNOSTIC RAD [address] [place] [address] Neri Delgado MD [address] [place] [address] 07/26/2024 10:00 AM PATIENT REGISTRATION CLERK Office Visit [facility] - ENT [address] [place] [phone] Myra Farmer, OUTBOUND TELEMARKETER [address] [place] [address] 2L [place] [phone] 07/26/2024 11:15 AM PATIENT REGISTRATION CLERK Office Visit [facility] - ENT [address] [place] [phone] Neri Delgado MD [address] [place] [address] 08/02/2024 2:20 PM PATIENT REGISTRATION CLERK Appointment [facility] INFUSION CENTER [address] [place] [address] 08/02/2024 3:00 PM PATIENT REGISTRATION CLERK Office Visit [facility] Physician Group - Hematology/Oncology [address] [place] [phone] Remi Beckett MD [address] [place] [phone] 08/18/2024 1:45 PM PATIENT REGISTRATION CLERK Office Visit [facility] ENT [address] [place] [phone] Neri Delgado MD [address] [place] [address] documented as of this encounter Procedures Procedure Name Priority Date/Time Associated Diagnosis Comments PET CT WHOLE BODY Routine 10/06/2023 3:3 9 PM CDT Postoperative hypothyroidism Thyroid cancer (HCC) Other hypoparathyroidism GLUCOSE SCREEN - POCT (IP) [facility] STAT 10/06/2023 1:40 PM CDT documented in this encounter Results * GLUCOSE SCREEN - POCT (IP) [facility] (10/06/2023 1:40 PM CDT) Glucose WB/POC 98 70 - 115 mg/dL [facility] POCT TESTING Blood BLOOD SPECIMEN / Unknown 10/06/2023 1:40 PM CDT Yosi Bustamante MD LAB - POINT OF CARE ORDERABLES [facility] POCT TESTING [address] [place] [address], [facility] [phone] documented in this encounter Visit Diagnoses Not on filedocumented in this encounter Administered Medications Inactive Administered Medications - up to 3 most recent administrations Medication Order MAR Action Action Date Dose Rate Site F-18 fludeoxyglucose (FDG) injection SOLN 8.78 millicurie 8.78 millicurie, Intravenous, ONCE, 1 dose, On Wed10/06/23 at 1400 $ Given 10/06/2023 1:51 PM CDT 8.78 millicuries documented in this encounter Care Teams Custom Shoemaker Relationship Specialty Start Date End Date Yaya Villatoro MD [address] [facility] [address] [place] [address] PCP - General Internal Medicine 05/04/23 Joseph Manzanares MD [address] [place] [address] Internal Medicine 04/21/23 documented as of this encounter
--- OUTSIDE RECORDS SUMMARY | 2024-07-23 07:09 | XMS_ITS | Encounter Summary ---
Author Organization [facility] Health Address [address] [facility] [place] [address] Care Team Providers Care Lead Assistant Manager Name Role Phone Joseph Manzanares MD Unavailable Yaya Villatoro MD Primary Care Provider +1- [phone] Encounter Details Date Type Department Care Team (Late st Contact Info) Description 06/08/2023 Orders Only [facility] - Endocrinology [address] [place] [address], [place] [phone] Yosi Bustamante MD [address] [place] [address] Div [place] [address] Postoperative hypothyroidism ; Thyroid cancer (HCC) Social History Tobacco Use [...] st Contact Info) Description 07/25/2024 10:00 AM SHIP'S CAPTAIN Office Visit [facility] - Endocrinology [address] [place] [phone] Yosi Bustamante MD [address] [place] [address] 2L [place] [address] 07/26/2024 10:00 AM SHIP'S CAPTAIN Appointment [facility] DIAGNOSTIC RAD [address] [place] [address] Neri Delgado MD [address] [place] [address] 07/26/2024 10:00 AM SHIP'S CAPTAIN Office Visit [facility] - ENT [address] [place] [phone] Myra Farmer, AUTOMATION CLERK [address] [place] [address] 2L [place] [address] 07/26/2024 11:15 AM SHIP'S CAPTAIN Office Visit [facility] - ENT [address] [place] [phone] Neri Delgado MD [address] [place] [address] 08/02/2024 2:20 PM SHIP'S CAPTAIN Appointment [facility] INF[facility]ION CENTER [address] [place] [address] 08/02/2024 3:00 PM SHIP'S CAPTAIN Office Visit [facility] Physician Group - Hematology/Oncology [address] [place] [phone] Remi Beckett MD [address] [place] [phone] 08/18/2024 1:45 PM SHIP'S CAPTAIN Office Visit [facility] Physician Group - ENT [address] [place] [phone] Neri Delgado MD [address] [place] [address] documented as of this encounter Visit Diagnoses Diagnosis Postoperative hypothyroidism- Primary Postsurgical hypothyroidism Thyroid cancer (HCC) Malignant neoplasm of thyroid gland documented in this encounter Care Teams Lead Assistant Manager Relationship Specialty Start Date End Date Yaya Villatoro MD [address] [place] [phone] PCP - General Internal Medicine 05/04/23 Joseph Manzanares MD [facility] [place] [address] Internal Medicine 04/21/23 documented as of this encounter
--- OUTSIDE RECORDS SUMMARY | 2024-07-23 07:09 | XMS_ITS | Encounter Summary ---
Author Organization [facility] Health Address [address] [place] [address] Care Team Providers Care Guest Service Supervisor Name Role Phone Joseph Manzanares MD Unavailable Yaya Villatoro MD Primary Care Provider +1- [phone] Encounter Details Date Type Department Care Team (Late st Contact Info) Description 10/18/2023 Oncology Treatment Summary [facility] RAD ONC [facility] [place] [address] Unknown, Provider Social History Tobacco Use Types Packs/Day Years [...] Date Recorded PHQ2 TOTAL SCORE 1 11/25/2022 [facility] of Occupat ional Health - Occupational [...] st Contact Info) Description 07/25/2024 10:00 AM WORKFORCE MANAGEMENT ANALYST Office Visit [facility] - Endocrinology [address] [place] [phone] Yosi Bustamante MD [address] [place] [address] 2L [place] [address] 07/26/2024 10:00 AM WORKFORCE MANAGEMENT ANALYST Appointment [facility] DIAGNOSTIC RAD [address] [place] [phone] Neri Delgado MD [address] [place] [address] 07/26/2024 10:00 AM WORKFORCE MANAGEMENT ANALYST [facility] [address] [place] [phone] Myra Farmer, NAILING MACHINE OPERATOR AUTOMATIC [address] [place] [address] 2L [place] [phone] 07/26/2024 11:15 AM WORKFORCE MANAGEMENT ANALYST Office Visit [facility] Physician Group - ENT [address] [place] [phone] Neri Delgado MD [address] [place] [address] 08/02/2024 2:20 PM WORKFORCE MANAGEMENT ANALYST Appointment [facility]ENTER [address] [place] [address] 08/02/2024 3:00 PM WORKFORCE MANAGEMENT ANALYST Office Visit [facility] Physician Group - Hematology/Oncology [address] [place] [phone] [place] [address] [place] [phone] 08/18/2024 1:45 PM WORKFORCE MANAGEMENT ANALYST Office Visit [facility] - ENT [address] [place] [address] Neri Delgado MD [address] [place] [address] documented as of this encounter Procedures Procedure Name Priority Date/Time Associated Diagnosis Comments RAD ONC ARIA SESSION SUMMARY Routine 10/22/2023 11:18 AM CDT RAD ONC ARIA SESSION SUMMARY Routine 10/21/2023 11:19 AM CDT RAD ONC ARIA SESSION SUMMARY Routine 10/20/2023 11:11 AM CDT RAD ONC ARIA SESSION SUMMARY Routine 10/19/2023 11:25 AM CDT RAD ONC ARIA SESSION SUMMARY Routine 10/18/2023 1:44 PM CDT documented in this encounter Results * Rad Onc Aria Session Summary (10/22/2023 11:18 AM CDT) Course ID [id number] ine RAD ONC TREATMENT Course First Treatment [...] ONCOLOGY O RDERABLES RAD ONC TREATMENT * Rad Onc Aria Session Summary (10/21/2023 11:19 AM CDT) Course ID [id number] ine RAD ONC TREATMENT Course First Treatment [...] ONCOLOGY O RDERABLES RAD ONC TREATMENT * Rad Onc Aria Session Summary (10/20/2023 11:11 AM CDT) Course ID [id number] ine RAD ONC TREATMENT Course First Treatment [...] ONCOLOGY O RDERABLES RAD ONC TREATMENT * Rad Onc Aria Session Summary (10/19/2023 11:25 AM CDT) Course ID [id number] ine RAD ONC TREATMENT Course First Treatment [...] ONCOLOGY O RDERABLES RAD ONC TREATMENT * Rad Onc Aria Session Summary (10/18/2023 1:44 PM CDT) Course ID [id number] ine RAD ONC TREATMENT Course First Treatment [...] RADIATION ONCOLOGY O RDERABLES Performing Organization Address [facility]/ZIP Co de Phone Number RAD ONC TREATMENT documented in this encounter Visit Diagnoses Not on filedocumented in this encounter Care Teams Guest Service Supervisor Relationship Specialty Start Date End Date Yaya Villatoro MD [address] [phone] PCP - General Internal Medicine 05/04/23 Joseph Manzanares MD [address] [place] [phone] Internal Medicine 04/21/23 documented as of this encounter
--- OUTSIDE RECORDS SUMMARY | 2024-07-23 07:09 | XMS_ITS | Encounter Summary ---
Author Organization [facility] Health Address [address] [facility] [place] [address] Care Team Providers Care Lan Analyst Name Role Phone Joseph Manzanares MD Unavailable Yaya Villatoro MD Primary Care Provider [phone] Reason for Referral * Radiology Services (Routine) - Closed Specialty Diagnoses / Procedures Referred By Contac t Referred To Contact MRI Diagnoses Cancer, metastatic to bone (HCC) Cervical spine tumor Procedures MRI CERVICAL SPINE WWO Marcio Hendrix MD [address] [place] [address] [facility] [address] [place] [phone] Referral ID Status Reason Start Date Expiration Date Visits Re quested Visits Authorized [id number] Closed 10/01/2023 12/30/2023 1 1 Reason for Visit * Radiology Services (Routine) - Closed Specialty Diagnoses / Procedures Referred By Contac t Referred To Contact MRI Diagnoses Cancer, metastatic to bone (HCC) Cervical spine tumor Procedures MRI CERVICAL SPINE WWO Marcio Hendrix MD [address] [place] [address] [facility] [address] [place] [address] Referral ID Status Reason Start Date Expiration Date Visits Re quested Visits Authorized [id number] Closed 10/01/2023 12/30/2023 1 1 Encounter Details Date Type Department Care Team (Latest Contact Info) Description 10/01/2023 9:30 AM CDT - 10/01/2023 11:59 PM CDT Hospital Encounter [facility] MRI [address] [place] [address] Marcio Mcintosh MD [address] [place] [address] Discharge Disposition: Home or Self Care Social [...] Date Recorded PHQ2 TOTAL SCORE 1 11/25/2022 [facility] of Occupat ional Health - Occupational Stress [...] naloxone HCl (Narcan) 4 MG/0.1ML nasal spray [place] 1 (one) spray into the nose as [...] st Contact Info) Description 07/25/2024 10:00 AM FOOD STOREROOM CLERK Office Visit [facility] - Endocrinology [address] [place] [phone] Yosi Bustamante MD [address] [place] [address] 2L [place] [address] 07/26/2024 10:00 AM FOOD STOREROOM CLERK Appointment [facility] DIAGNOSTIC RAD [address] [place] [address] Neri Delgado MD [address] [place] [address] 07/26/2024 10:00 AM FOOD STOREROOM CLERK Office Visit [facility] - ENT [address] [place] [phone] Myra Farmer, SENIOR BUSINESS CONSULTANT [address] [place] [address] 2L [place] [address] 07/26/2024 11:15 AM FOOD STOREROOM CLERK Office Visit [facility] - ENT [address] [place] [phone] Neri Delgado MD [address] [place] [address] 08/02/2024 2:20 PM FOOD STOREROOM CLERK Appointment [facility] INFUSION CENTER [address] [place] [address] 08/02/2024 3:00 PM FOOD STOREROOM CLERK Office Visit [facility] - Hematology/Oncology [address] [place] [phone] Remi Beckett MD [address] [place] [phone] 08/18/2024 1:45 PM FOOD STOREROOM CLERK Office Visit [facility] - ENT [address] [place] [phone] Neri Delgado MD [address] [place] [address] documented as of this encounter Procedures Procedure Name Priority Date/Time Associated Diagnosis Comments MRI CERVICAL SPINE WWO CONT Routine 10/01/2023 10:44 AM CDT Cancer, metastatic to bone (HCC) Cervical spine tumor documented in this encounter Results * MRI [...] DATE/TIME OF EXAM: ??10/01/2023 10:44 AM, LOCATION ??[facility] INDICATION: C79.51: Cancer, metastatic to [...] DATE/TIME OF EXAM: 10/01/2023 10:44 AM, LOCATION [facility] INDICATION: C79.51: Cancer, metastatic to [...] tissues are again noted in the left C5-K4krconl foramen extending into the adjacent ventral epidural [...] new enhancing soft tissue in the left C4-Q2qjkatu foramina. Residual soft tissue enhancing lesions in the left C5-N7zljsif foramina, left C6-C7 neural foramina also involving [...] tissue, and skin documented in this encounter Administered Medications Inactive Administered Medications - up to 3 most recent administrations Medication Order MAR Action Action Date Dose Rate Site gadobutrol (Gadavist) injection Intravenous, CONTRAST ONCE, Starting on 10/01/23 at 1042, Until 10/02/23 at 0129 $ Given - Contrast 10/01/2023 10:43 AM CDT 5 mL documented in this encounter Care Teams Lan Analyst Relationship Specialty Start Date End Date Yaya Villatoro MD [address] [facility] [address] [place] [address] PCP - General Internal Medicine 05/04/23 Joseph Manzanares MD [address] [place] [address] Internal Medicine 04/21/23 documented as of this encounter
--- OUTSIDE RECORDS SUMMARY | 2024-07-23 07:09 | XMS_ITS | Encounter Summary ---
Author Organization [facility] Address [address] [place] [address] Care Team Providers Care Dairy Department Manager Name Role Phone Joseph Manzanares MD Unavailable Yaya Villatoro MD Primary Care Provider [phone] Encounter Details Date Type Department Care Team (Latest Contact Info) Description 06/08/2023 Travel Social History Tobacco Use Types Packs/Day [...] Date Recorded PHQ2 TOTAL SCORE 1 11/25/2022 [facility] of Occupat ional Health - Occupational [...] st Contact Info) Description 07/25/2024 10:00 AM SANDWICH HAND [facility] Endocr[facility]ology [address] [place] [phone] Yosi Bustamante MD [address] [place] [address] 2L [place] [address] 07/26/2024 10:00 AM SANDWICH HAND Appointment [facility] DIAGNOSTIC RAD [address] [place] [address] Neri Delgado MD [address] [place] [address] 07/26/2024 10:00 AM SANDWICH HAND Office Visit [facility] - ENT [address] [place] [phone] Myra Farmer, DRAFTER SEISMOGRAPH [address] [place] [address] 2L [place] [phone] 07/26/2024 11:15 AM SANDWICH HAND Office Visit [facility] - ENT [address] [place] [phone] Neri Delgado MD [address] [place] [address] 08/02/2024 2:20 PM SANDWICH HAND Appointment [facility] INFUSION CENTER [address] [place] [address] 08/02/2024 3:00 PM SANDWICH HAND Office Visit [facility] - Hematology/Oncology [address] [place] [phone] Remi Beckett MD [address] [place] [phone] 08/18/2024 1:45 PM SANDWICH HAND Office Visit [facility] - ENT [address] [place] [address] Neri Delgado MD [address] [place] [address] documented as of this encounter Visit Diagnoses Not on filedocumented in this encounter Care Teams Dairy Department Manager Relationship Specialty Start Date End Date aYya Villatoro MD [address] [phone] PCP - General Internal Medicine 05/04/23 Joseph Manzanares MD [address] [place] [phone] Internal Medicine 04/21/23 documented as of this encounter
--- OUTSIDE RECORDS SUMMARY | 2024-07-23 07:10 | XMS_ITS | Encounter Summary ---
Author Organization [facility] Health Address [address] [address] [place] [address] Care Team Providers Care Shore Hand Dredge Or Barge Name Role Phone Adriana Adams DO Unavailable Joseph Manzanares MD Primary Care Provider [phone] Encounter Details Date Type Department Care Team (Latest Contact Info) Description 11/19/2022 Travel Social History Tobacco Use Types Packs/Day Years Used Date Smoking Tobacco: Former Cigarettes 0.3 51 S tarted: 07/22/1973 Smokeless Tobacco: Never Comments:1-2 cigarettes per day current smoker Alcohol [...] PHQ-2 Answer Date Recorded PHQ2 TOTAL SCORE 0 09/02/2022 [facility] of Occupat ional Health - Occupational Stress [...] on file Sexual Orientation Not on file COVID-19 Exposure Response Date Recorded In the last 10 days, have yo u been in contact with someone who was confirmed or suspected to have Coronavirus/COVID-19? No / Unsure 11/19/2022 11:27 AM CDT documented as of this encounter Functional Status [...] st Contact Info) Description 07/25/2024 10:00 AM DRAFTER LANDSCAPE [facility] [address] [place] [phone] Yosi Bustamante MD [address] [place] [address] 2L [place] [address] 07/26/2024 10:00 AM DRAFTER LANDSCAPE Appointment [facility] DIAGNOSTIC RAD [address] [place] [address] Neri Delgado MD [address] [place] [address] 07/26/2024 10:00 AM DRAFTER LANDSCAPE Office [facility] ENT [address] [place] [phone] Myra Farmer, DIRECTOR OF PATIENT FINANCIAL SERVICES [address] [place] [address] 2L [place] [address] 07/26/2024 11:15 AM DRAFTER LANDSCAPE Office [facility] [address] [place] [phone] Neri Delgado MD [address] [place] [address] 08/02/2024 2:20 PM DRAFTER LANDSCAPE Appointment [facility] INFUSION CENTER [address] [place] [address] 08/02/2024 3:00 PM DRAFTER LANDSCAPE Office Visit [facility] - Hematology/Oncology [address] [place] [phone] Remi Beckett MD [address] [place] [address] 08/18/2024 1:45 PM DRAFTER LANDSCAPE Office Visit [facility] - ENT [address] [place] [phone] Neri Delgado MD [address] [place] [address] documented as of this encounter Visit Diagnoses Not on filedocumented in this encounter Care Teams Shore Hand Dredge Or Barge Relationship Specialty Start Date End Date Joseph Manzanares MD [address] [place] [address] PCP - General Internal Medicine 10/07/22 04/20/23 Adriana Adams DO [address] [place] [phone] Resident - PCP Internal Medicine 04/06/22 01/12/23 documented as of this encounter
--- OUTSIDE RECORDS SUMMARY | 2024-07-23 07:10 | XMS_ITS | Encounter Summary ---
Author Organization [facility] Address [address] [place] [address] Care Team Providers Care Systems Administrator Name Role Phone Adriana Adams DO Unavailable Joseph Manzanares MD Primary Care Provider [phone] Encounter Details Date Type Department Care Team (Latest Contact Info) Description 12/15/2022 Travel Social History Tobacco Use Types Packs/Day [...] Date Recorded PHQ2 TOTAL SCORE 1 11/25/2022 [facility] of Occupat ional Health - [...] suspected to have Coronavirus/COVID-19? No / Unsure 12/15/2022 9:41 AM CDT documented as of this encounter [...] Contact Info) Description 07/25/2024 10:00 AM STOVE BOTTOM WORKER Office Visit [facility] - Endocrinology [address] [place] [phone] Yosi Bustamante MD [address] [place] [address] 2L [place] [address] 07/26/2024 10:00 AM STOVE BOTTOM WORKER Appointment [facility] DIAGNOSTIC RAD [address] [place] [address] Neri Delgado MD [address] [place] [address] 07/26/2024 10:00 AM STOVE BOTTOM WORKER Office Visit [facility] - ENT [address] [place] [phone] Myra Farmer, SADDLE STITCHER [address] [place] [address] 2L [place] [phone] 07/26/2024 11:15 AM STOVE BOTTOM WORKER Office Visit [facility] - ENT [address] [place] [phone] Neri Delgado MD [address] [place] [address] 08/02/2024 2:20 PM STOVE BOTTOM WORKER Appointment [facility] INFUSION CENTER [address] [place] [address] 08/02/2024 3:00 PM STOVE BOTTOM WORKER Office Visit [facility]ician Group - Hematology/Oncology [address] [place] [phone] Remi Beckett MD [address] [place] [address] 08/18/2024 1:45 PM STOVE BOTTOM WORKER Office Visit [facility] - ENT [address] [place] [phone] Neri Delgado MD [address] [place] [address] documented as of this encounter Visit Diagnoses Not on filedocumented in this encounter Care Teams Systems Administrator Relationship Specialty Start Date End Date Joseph Manzanares MD [address] [place] [address] PCP - General Internal Medicine 10/07/22 04/20/23 Adriana Adams DO [address] [place] [address] Resident - PCP Internal Medicine 04/06/22 01/12/23 documented as of this encounter
--- OUTSIDE RECORDS SUMMARY | 2024-07-23 07:10 | XMS_ITS | Encounter Summary ---
Author Organization [facility] Health Address [address] [facility] [place] [address] Care Team Providers Care Drop Man Name Role Phone Joseph Manzanares MD Primary Care Provider [phone] Tiana Naylor DO Unavailable [phone] Reason for Visit * Reason Comments Pain Hip Encounter Details Date Type Department Care Team (Late st Contact Info) Description 02/11/2023 1:40 PM CDT Office Visit [facility] Health Pain Care [address] [facility] [address] [place] [address] Vivi Romero, GANG LEADER-SHREDDED FILLER CUTTER OPERATOR [address] [facility] [address] [place], [place] [phone] Primary osteoarthritis of both hips (Primary Dx) [...] suspected to have Coronavirus/COVID-19? No / Unsure 01/12/2023 2:49 PM CDT documented as of this encounter Last Filed Vital Signs Vital Sign Reading Time Taken Comments Blood Pressure 129/79 02/11/2023 2:00 PM CDT Pulse 85 02/11/2023 2:00 PM CDT Temperature - - Respiratory Rate 16 02/11/2023 2:00 PM CDT Oxygen Saturation - - Inhaled Oxygen Concentration - - Weight 62.1 kg (137 lb) 02/11/2023 2:00 PM CDT Height - - Body Mass Index 25.06 01/29/2023 3:14 PM CDT documented in this [...] * Patient Instructions* Vivi Romero APRN-CNP - 02/11/2023 2:23 PM CDT Make apt if pain returns documented in this encounter Progress Notes * Vivi Romero APRN-CNP - 02/11/2023 2:14 PM CDT Brisa Hogan is a 62 year old female PCP: Joseph Manzanares MD Chief Complaint Patient presents with ??? Pain Hip Brisa returns to Pain Management office today for evaluation of hip pain pain. She rates the pain 3/10 today. ?? What was the worst your pain was in the last 30 days? 12/12 Have you had any new imaging since [...] LEFT??Hip intra-articular steroid injection??- 80% relief 12/10/2022- LEFT greater trochanter bursa injection 90% ?? Have you had improvement in ADLs after interventions? Yes Please list: Cooking ?? Functional Index score today: 22 HPI: Constitutional: alert, cooperative, no distress, oriented to person, place, and time The patient is reporting left hip pain The pain has been present for 3 [...] today upon referral from No ref. provider found. Denies bowel and bladder problems Current Medication: Current Outpatient Medications on File Prior to Visit Medication Sig Dispense Refill ??? acetaminophen (TYLENOL) 500 MG tablet Take 2 (two) tablets by mouth every 6 hours as needed Reasons: Pain ??? atorvastatin (Lipitor) 40 MG tablet TAKE 1 TABLET BY MOUTH EVERYDAY AT BEDTIME (Patient taking differently: Take 1 (one) tablet by mouth once daily TAKE 1 TABLET BY MOUTH EVERYDAY AT BEDTIME) 30 tablet 3 ??? buPROPion SR 12hr (Wellbutrin-SR) 100 MG tablet Take 1 (one) tablet by mouth 2 times daily ??? calcitriol (Rocaltrol) 0.5 MCG capsule TAKE 1 CAPSULE BY MOUTH TWICE A DAY 60 capsule 11 ??? OTEQBLH-LXPNPSYAK-VBAU PO Take by mouth once daily ??? celecoxib (CeleBREX) 200 MG capsule Take 1 (one) capsule by mouth once daily 90 capsule 3 ??? cetirizine (ZYRTEC) 10 MG tablet Take 1 (one) tablet by mouth once daily 30 tablet 5 ??? clonazePAM (KLONOPIN) 0.5 [...] by mouth 3 times daily with meals ??? fluticasone propionate (Flonase) 50 MCG/ACT nasal spray [place] 2 (two) sprays into each nostril once daily 48 g 0 ??? gabapentin (Neurontin) 300 MG capsule Take 1 (one) capsule by mouth 3 times daily 90 capsule 5 ??? EPSTTW-REKFRFPND-VAT-C-HYAL PO Take 1 tablet by mouth 3 times daily ??? levothyroxine (Synthroid) 112 MCG tablet TAKE 1 TABLET BY MOUTH EVERY DAY (Patient taking differently: Take 1 (one) tablet by mouth once daily) 90 tablet 4 ??? Misc Natural Products (NEURIVA PO) Take 1 tablet by mouth 2 times daily ??? oxybutynin CR 24hr (Ditropan-XL) 5 MG [...] (one) capsule by mouth 3 times daily No current facility-administered medications on file prior [...] NEURO-neg MUSCULOSKELETAL see HPI Physical Examination: BP 129/79 Pulse 85 Resp 16 Wt 62.1 kg (137 lb) Alert and oriented x 3 HEENT: normocephalic, atraumatic Cardiovascular: Regular rate and rhythm Respiratory: Unlabored breathing, clear to auscultation Plan: Chronic pain/medication management This is an established patient. - who remains compliant with the prescribed medication regimen - returns requesting a timely refill. - reports improved activity level and a reduction in pain - denies side effects from medications. - UDS reviewed - medications are to be locked and secured - no promise of refill for stolen or lost medications - CDC guidelines reviewed with patient - tapering is recommended- to take only as needed for severe pain Make apt if pain returns Procedures: Diagnostic Imaging: Assessment: (M16.0) Primary osteoarthritis of both hips (primary encounter diagnosis) Continue exercises as prescribed. Continue with prescribed medications as ordered. Orders this visit: No orders of the defined types were placed in this encounter. Follow up /Instructions: Return for Make apt if pain returns . Patient education/teaching: Risk, benefits, and alternatives of [...] take part in this patient???s care. Sincerely, Vivi Romero APRN, GARMENT ALTERATION EXAMINER . * Nolvia Parisi, RT(R) - 02/11/2023 1:53 PM CDT Brisa returns to Pain Management office today for evaluation of hip pain pain. She rates the pain 09/11 today. What was the worst your pain was in the last 30 days? 12/12 Have you had any new imaging since your last visit? No Have you had any new therapies since your last visit? No History of NSAIDs tried and failed: Tylenol. Unable to take Ibuprofen Other medications tried and failed: None. Medications currently taking include: cyclobenzaprine (Flexeril) and gabapentin (Neurontin) Interventional treatments performed: 01/14/2023- LEFT Hip intra-articular steroid injection - 80% relief 12/10/2022- LEFT Hip intra-articular steroid injection - 90% relief Have you had improvement in ADLs after interventions? Yes Please list: Cooking Functional Index score today: 22 documented in this encounter Plan of Treatment Upcoming Encounters Date Type Department Care Team (Late st Contact Info) Description 07/25/2024 10:00 AM END MATCHER Office Visit [facility] - Endocrinology [address] [place] [phone] Yosi Bustamante MD [address] [place] [address] [place] [address] 07/26/2024 10:00 AM END MATCHER Appointment [facility] DIAGNOSTIC RAD [address] [place] [phone] Neri Delgado MD [address] [place] [address] 07/26/2024 10:00 AM END MATCHER Office Visit [facility] - ENT [address] [place] [phone] Myra Farmer, SCIENTIST ENGINEER [address] [place] [address] [place] [phone] 07/26/2024 11:15 AM END MATCHER Office Visit [facility] - ENT [address] [place] [phone] Neri Delgado MD [address] [place] [address] 08/02/2024 2:20 PM END MATCHER Appointment [facility] INFUSION CENTER [address] [place] [address] 08/02/2024 3:00 PM END MATCHER Office Visit [facility] - Hematology/Oncology [address] [place] [phone] Remi Beckett MD [address] [place] [phone] 08/18/2024 1:45 PM END MATCHER Office Visit [facility] - ENT [address] [place] [phone] Neri Delgado MD [address] [place] [phone] documented as of this encounter Visit Diagnoses Diagnosis Primary osteoarthritis of both hips- Primary Primary localized osteoarthrosis, pelvic region and thigh documented in this encounter Care Teams Drop Man Relationship Specialty Start Date End Date Joseph Manzanares MD [address] [place] [phone] PCP - General Internal Medicine 10/07/22 04/20/23 Tinaa Naylor DO [facility] [place] [address] Resident - PCP Internal Medicine 01/13/23 04/20/23 documented as of this encounter
--- OUTSIDE RECORDS SUMMARY | 2024-07-23 07:10 | XMS_ITS | Encounter Summary ---
Author Organization [facility] Health Address [address] [facility] [place] [address] Care Team Providers Care Erp Business Analyst Name Role Phone Joseph Manzanares MD Primary Care Provider Tiana Naylor DO Unavailable [phone] Reason for Visit * Reason Onset Date Comments MEDICATION REFILL 01/13/2023 Encounter Details Date Type Department Care Team (Late st Contact Info) Description 01/13/2023 Refill [facility] - Internal Med [address] [place] [phone] Joseph Manzanares MD [address] [place] [address] MEDICATION REFILL Social History Tobacco Use Types Packs/Day Years [...] PHQ2 TOTAL SCORE 1 11/25/2022 [facility] of Occupat ional Health - Occupational Stress [...] PM CDT documented as of this encounter Functional [...] encounter Miscellaneous Notes * Telephone Encounter - Lexii Birch RN - 01/13/2023 11:47 AM CDT FYI: MEDICATION FILLED PER PROTOCOL Disposition of prescription:medication sent to pharmacy per protocol. 90 day supply sent to pharmacy; pt will est with new resident Dr Naylor in June. * Telephone Encounter - Lexii Birch RN - 01/13/2023 11:43 AM CDT Pt Calling in and needing Pantoprazole refilled. Out of the med for 2 weeks and getting reflux symptoms again. Refill Request Brisa Hogan ELE: 11/25/22NOV scheduled: 06/09/23 Carol echols LRF: 05/14/22 Qty Disp: 90 # of refills: 0 Allergies: Allergies Allergen Reactions ??? Kiwi Extract Anaphylaxis Pended Medication Order: Requested Prescriptions Pending Prescriptions Disp Refills ??? pantoprazole EC (Protonix) 40 MG tablet 90 tablet 0 Sig: TAKE ONE TABLET BY MOUTH ONCE DAILY FOR STOMACH documented in this encounter Plan of Treatment Upcoming Encounters Date Type Department Care Team (Late st Contact Info) Description 07/25/2024 10:00 AM KENO MANAGER Office Visit [facility] - Endocrinology [address] [place] [address] Yosi Bustamante MD [address] [place] [address] 2L [place] [address] 07/26/2024 10:00 AM KENO MANAGER Appointment [facility] RAD [address] [place] [address] Neri Delgado MD [address] [place] [address] 07/26/2024 10:00 AM KENO MANAGER Office Visit [facility] - ENT [address] [place] [phone] Myra Farmer, EARTH BORING MACHINE OPERATOR [address] [place] [address] 2L DIV OF AUDIOLOGY [phone] 07/26/2024 11:15 AM KENO MANAGER Office Visit [facility] - ENT [address] [place] [phone] Neri Delgado MD [address] [place] [phone] 08/02/2024 2:20 PM KENO MANAGER Appointment [facility] [address] [place] [address] 08/02/2024 3:00 PM KENO MANAGER Office Visit [facility] - Hematology/Oncology [address] [place] [phone] Remi Beckett MD [address] [place] [phone] 08/18/2024 1:45 PM KENO MANAGER Office Visit [facility] - ENT [address] [place] [phone] Neri Delgado MD [address] [place] [phone] documented as of this encounter Visit Diagnoses Diagnosis Gastroesophageal reflux disease, unspecified whether esophagitis present documented in this encounter Care Teams Erp Business Analyst Relationship Specialty Start Date End Date Joseph Manzanares MD [address] [place] [address] PCP - General Internal Medicine 10/07/22 04/20/23 Tiana Naylor DO [address] [id number] Resident - PCP Internal Medicine 01/13/23 04/20/23 documented as of this encounter
--- OUTSIDE RECORDS SUMMARY | 2024-07-23 07:10 | XMS_ITS | Encounter Summary ---
Author Organization [facility] Health Address [address] [facility] [place] [address] Care Team Providers Care Manager Unix Name Role Phone Adriana Adams DO Unavailable Joseph Manzanares MD Primary Care Provider [phone] Reason for Visit * Reason Comments Pain Hip Shoulder Pain Encounter Details Date Type Department Care Team (Latest Contact Info) Description 11/19/2022 11:30 AM CDT Office Visit [facility] [address] [facility] [address] [place] [address] Gerard Gallegos MD [address] [place] [phone] Osteoarthritis of left hip, unspecified osteoarthritis type (Primary Dx); Left hip pain; Primary osteoarthritis of left hip; Smoking; Greater trochanteric bursitis of left hip Social History Tobacco Use Types Packs/Day Years [...] Date Recorded PHQ2 TOTAL SCORE 0 09/02/2022 [facility] of Occupat ional Health - [...] Recorded In the last 10 days, have amee sepulveda been in contact with someone who was confirmed or suspected to have Coronavirus/COVID-19? No / Unsure 11/19/2022 11:27 AM CDT documented as of this encounter Last Filed Vital Signs Vital Sign Reading Time Taken Comments Blood Pressure 139/80 11/19/2022 11:35 AM CDT Pulse 93 11/19/2022 11:35 AM CDT Temperature 36.7 ??C (98 ??F) 11/19/2022 11:35 AM CDT Respiratory Rate 18 11/19/2022 11:35 AM CDT Oxygen Saturation - - Inhaled Oxygen Concentration - - Weight 63 kg (139 lb) 11/19/2022 11:35 AM CDT Height 160 cm (5' 3) 11/19/2022 11:35 AM CDT Body Mass Index 24.62 11/19/2022 11:35 AM CDT documented in this encounter Functional [...] this encounter Patient Instructions * Patient Instructions* Gerard Gallegos MD - 11/19/2022 12:32 PM CDT You were seen for left hip pain due to osteoarthritis. We will schedule you for left hip intra-articular steroid injection and left hip greater trochanteric bursa steroid injection. We also prescribed Gabapentin 300 mg 3x a day and flexeril 5mg 3x a day as needed for pain and muscle spasms documented in this encounter Progress Notes * Martha Nichole MD - 11/19/2022 12:34 PM CDT Images from the original note were not included. Subjective: Pain Hip and Shoulder Pain Brisa Hogan is a 62 year old female presenting for left hip pain. HPI: Triage Note: Brisa is referred by Dr Durham here for left hip pain that started in 2020, gradual from no injury.She also complains of left shoulder pain she states she fell and tore her rotator cuff. On a weeklybasis, the patient rates their pain 5/10 and is a 5 today. The frequency of pain is Many times a day Intermittent. The pain radiates to the arm. She states that she has no other symptoms has associated with it. She describes her pain as aching and sharp and worse in/with Morning. Aggravating factors are:exercise, walking, standing, weather changes and rolling in bed Relieving factors are: lying down and medicationTherapies tried for pain control include: occupational therapy Physical therapy most recently in October 2022 at Location: home visits thr [facility] With improvement in hip pain. Medications tried for pain management include: Percocet (prescribed after neck surgery, she is out of the medication), Gabapentin, Celebrex, Lidocaine patch ?? . Blood thinners taking currently are:none: Previous Records Reviewed - [facility] ff[facility] visit with Samantha Ambrocio 10/21/22, Ortho office visit with Cesar Brooks on 04/01/23 Imaging Results Reviewed - XR cervical/thoracic spine 10/04/22, XR L shoulder 04/10/22, MRI l shoulder03/29/22, XR L hip/pelvis 11/19/20 Last Physical Therapy Course - October 2022 Pt presents today with primary complaint of left hip pain. She states surgical intervention is on hold given radiation therapy and would like to discuss injections for pain control. Pt ambulates withfort myers and states walking aggravates her hip. Pt would like a PT referral as well. Current Medication: Current Outpatient Medications on File Prior to Visit Medication Sig Dispense Refill ??? acetaminophen (TYLENOL) 500 MG tablet Take 2 (two) tablets by mouth every 6 hours as needed Reasons: Pain ??? atorvastatin (Lipitor) 40 MG tablet TAKE 1 TABLET BY MOUTH EVERYDAY AT BEDTIME 30 tablet 3 ??? B Complex Vitamins (B COMPLEX 1 PO) Take by mouth once daily (Patient not taking: Reported on 11/19/2022) ??? buPROPion SR 12hr (Wellbutrin-SR) 100 MG tablet Take 1 (one) tablet by mouth 2 times daily ??? calcitriol (Rocaltrol) 0.5 MCG capsule TAKE 1 CAPSULE BY MOUTH TWICE A DAY (Patient not taking:Reported on 11/19/2022) 60 capsule 11 ??? DBXKTCE-YOVHXRKGD-PMIU PO Take by mouth once daily (Patient not taking: Reported on 11/19/2022) ??? celecoxib (CeleBREX) 200 MG capsule Take 1 (one) capsule by mouth once daily 90 capsule 3 ??? cetirizine (ZYRTEC) 10 MG tablet Take 1 (one) tablet by mouth once daily 30 tablet 5 ??? clonazePAM (KLONOPIN) 0.5 MG tablet Take 1.5 (one and one-half) tablets by mouth once daily ??? famotidine (PEPCID) 20 MG tablet Take 1 (one) tablet by mouth 2 times daily as needed ??? fish oil/omega-3 fatty acids (PROMEGA;CARDI-OMEGA 3) 1000 MG capsule Take 1 (one) capsule by mouth 3 times daily with meals (Patient not taking: Reported on 11/19/2022) ??? fluticasone propionate (FLONASE) 50 MCG/ACT nasal spray [place] 2 (two) sprays into each nostril once daily 48 g 0 ??? KAQBWW-XZLRKPOKL-PXE-C-HYAL PO Take 1 tablet by mouth 3 times daily ??? levothyroxine (Synthroid) 112 MCG tablet TAKE 1 TABLET BY MOUTH EVERY DAY 90 tablet 4 ??? Misc Natural Products (NEURIVA PO) Take 1 tablet by mouth 2 times daily ??? oxybutynin CR 24hr (Ditropan-XL) 5 MG tablet Take 1 (one) tablet by mouth once daily 90 tablet 4 ??? oxyCODONE-acetaminophen (Percocet) 10-325 MG tablet Take 1 (one) tablet by mouth every 4 hours as needed (Patient not taking: Reported on 11/19/2022) 60 tablet 0 ??? pantoprazole EC (Protonix) 40 MG tablet TAKE ONE TABLET BY MOUTH ONCE DAILY FOR STOMACH 90 tablet 0 ??? PARoxetine (PAXIL) 40 MG tablet Take 1 (one) tablet by mouth once daily 2 ??? senna (Senokot Extra Strength) 17.2 MG Take 17.2 mg by mouth once daily 30 tablet 1 ??? traZODone (DESYREL) 50 MG tablet Take 1 (one) tablet by mouth at bedtime ??? vitamin E (TOCOPHERYL) 200 UNIT capsule Take 1 (one) capsule by mouth 3 times daily (Patient not taking: Reported on 11/19/2022) No current facility-administered medications on file prior to visit. Medical history: Past Medical History: Diagnosis Date ??? Anxiety [...] Thyroid cancer (CMS/HCC) 10/14/2020 ??? Tracheal mass Allergies: Allergies Allergen Reactions ??? Kiwi Extract Anaphylaxis Surgical history: Past Surgical History: Procedure Laterality [...] DIRECT LARYNGOSCOPY WITH BIOPSY ??? Polypectomy cervical Family History: Family History Problem Relation Name Age of [...] Status: Alive ??? Thyroid Disease Neg Hx Social History: Social History Tobacco Use ??? Smoking status: Former Packs/day: 0.25 Years: 40.00 Pack years: 10.00 Types: Cigarettes Start date: 07/22/1973 ??? Smokeless tobacco: Never ??? Tobacco comments: 1-2 cigarettes per day current smoker Vaping Use ??? Vaping status: Never Used Substance Use Topics ??? Alcohol use: No ??? Drug use: Yes Frequency: 1.0 times per week Types: Marijuana Comment: a few puffs from a pinch hitter some days 10/01 last OBJECTIVE: Vital signs: BP 139/80 Pulse 93 Temp 98 ??F (36.7 ??C) Resp 18 Ht 1.6 m (5' 3) Wt 63 kg(139 lb) Past Results: Recent Labs Component Name 10/02/22 1259 PT 12.9 INR 1.0 Review of Systems Constitutional: Negative for chills and fever. Weight gain/loss HENT: Positive for congestion. Negative for ear pain, hearing loss and tinnitus. Eyes: Negative for blurred vision, double vision and pain. Respiratory: Negative for cough. Cardiovascular: Negative for chest pain and palpitations. Gastrointestinal: Negative for nausea and vomiting. Genitourinary: Negative. Musculoskeletal: Negative. Skin: Negative for itching and rash. Neurological: Positive for focal weakness and headaches. Negative for tingling and weakness. Frequent falls Motor weakness in left arm and elbow Endo/Heme/Allergies: Negative. Psychiatric/Behavioral: Positive for depression and substance abuse. The patient is nervous/anxious. 3 cigarettes per day Mood swings Physical Exam Vitals and nursing note reviewed. Constitutional: Appearance: Normal appearance. HENT: Head: Normocephalic and atraumatic. Right Ear: External ear normal. Left Ear: External ear normal. Nose: Nose normal. Mouth/Throat: Mouth: Mucous membranes are moist. Pharynx: Oropharynx is clear. Eyes: Extraocular Movements: Extraocular movements intact. Pupils: Pupils are equal, round, and reactive to light. Neck: Comments: Well healed surgical incision over posterior cervical spine. Scar over anterior neck. Cardiovascular: Rate and Rhythm: Normal rate and regular rhythm. Pulses: Normal pulses. Pulmonary: Effort: Pulmonary effort is normal. Abdominal: General: Abdomen is flat. Musculoskeletal: General: Tenderness present. Left shoulder: Tenderness present. Decreased range of motion. Decreased strength. Left elbow: Decreased range of motion. Arms: Cervical back: Normal range of motion and neck supple. Legs: Comments: Decreased active ROM in left shoulder and elbow. 2/5 strength in left elbow flexion/extension. Pain with ambulation of left hip. No pain with passive ROM. TTP over lateral hip. Log roll test positive on the left. Skin: General: Skin is warm. Neurological: General: No focal deficit present. Mental Status: She is alert and oriented to person, place, and time. Psychiatric: Mood and Affect: Mood normal. Behavior: Behavior normal. ASSESSMENT: ICD-10-CM 1. Osteoarthritis of left hip, unspecified osteoarthritis type M16.12 AMB REFERRAL TO PHYSICAL THERAPY 2. Left hip pain M25.552 3. Primary osteoarthritis of left hip M16.12 gabapentin (Neurontin) 300 MG capsule DISCONTINUED: gabapentin (Neurontin) 300 MG capsule 4. Smoking F17.200 5. Greater trochanteric bursitis of left hip M70.62 Brisa Hogan has left hip pain likely secondary to degenerative changes given history of OA on prior imaging. PLAN: -PT. Referral for physical therapy provided to the patient -resume gabapenting 300 mg TID and flexeril 5 mg TID PRN. Prescriptions to these medications sent to the patient's pharmacy. Risks/benefits/alternatives for these medications explained to the patientin detail. -we will schedule patient for left intraarticular hip injection and left greater trochanteric bursasteroid injections -smoking cessation counseling provided to the patient Procedures: Left hip intra-articular steroid injection and left greater trochanteric bursa steroid injection under fluoroscopy guidance Diagnostic Imaging: na I was present for exam and discussion of patient with the resident and medical student. I agree with progress note and plan for the patient's left hip Pain Management Date of Service => 11/19/22 Gerard Kay MD/PhD Home Health Manager Chronic Pain Management * Heather Hernadez RN - 11/19/2022 11:29 AM CDT Brisa is referred by Dr Durham here for left hip pain that started in 2020, gradual from no injury. She also complains of left shoulder pain she states she fell and tore her rotator cuff. On a weekly basis, the patient rates their pain 5/10 and is a 5 today. The frequency of pain is Many times a dayIntermittent. The pain radiates to the arm. She states that she has no other symptoms has associated with it. She describes her pain as aching and sharp and worse in/with Morning. Aggravating factorsare:exercise, walking, standing, weather changes and rolling in bed Relieving factors are: lying down and medicationTherapies tried for pain control include: occupational therapy Physical therapy most recently in October 2022 at Location: home visits thr [facility] With improvement in hip pain. Medications tried for pain management include: Percocet (prescribed after neck surgery, she is out of the medication), Gabapentin, Celebrex, Lidocaine patch . Blood thinners taking currently are:none: documented in this encounter Plan of Treatment Upcoming Encounters Date Type Department Care Team (Late st Contact Info) Description 07/25/2024 10:00 AM COOK PRESSURE Office Visit [facility] - Endocrinology [address] [place] [address], [place] [phone] Yosi Bustamante MD [address] [place] [address] [place] [address] 07/26/2024 10:00 AM COOK PRESSURE Appointment [facility] [address] [place] [phone] Neri Delgado MD [address] [place] [phone] 07/26/2024 10:00 AM COOK PRESSURE Office Visit [facility] - ENT [address] [place] [phone] Myra Farmer, ATHLETIC TRAINER [address] [place] [address] [place] [phone] 07/26/2024 11:15 AM COOK PRESSURE Office Visit [facility] - ENT [address] [place] [phone] Neri Delgado MD [address] [place] [address] 08/02/2024 2:20 PM COOK PRESSURE Appointment [facility] [address] [place] [address] 08/02/2024 3:00 PM COOK PRESSURE Office Visit [facility] - Hematology/Oncology [address] [place] [phone] Remi Beckett MD [address] [place] [phone] 08/18/2024 1:45 PM COOK PRESSURE Office Visit [facility] - ENT [address] [place] [phone] Neri Delgado MD [address] [place] [phone] documented as of this encounter Visit Diagnoses Diagnosis Osteoarthritis of left hip, unspecified osteoarthritis type- Primary Left hip pain Pain in joint, pelvic region and thigh Smoking Tobacco use disorder Greater trochanteric bursitis of left hip Enthesopathy of hip region documented in this encounter Care Teams Manager Unix Relationship Specialty Start Date End Date Joseph Manzanares MD [address] [place] [phone] PCP - General Internal Medicine 10/07/22 04/20/23 Adriana Adams DO [address] [place] [phone] Resident - PCP Internal Medicine 04/06/22 01/12/23 documented as of this encounter
--- OUTSIDE RECORDS SUMMARY | 2024-07-23 07:10 | XMS_ITS | Encounter Summary ---
Author Organization [facility] Health Address [address] [address] Care Team Providers Care Speech Therapy Assistant Name Role Phone Adriana Adams DO Unavailable Joseph Manzanares MD Primary Care Provider [phone] Reason for Visit * Auth/Cert (Routine) Specialty Diagnoses / Procedures Referred By Contricardo t Referred To Contact Referral ID Status Reason Start Date Expiration Date Visits Re quested Visits Authorized [id number] 1 1 Encounter Details Date Type Department Care Team (Late st Contact Info) Description 11/05/2022 8:00 AM CDT Home Care Visit [facility] [address] [place] [phone] Kendra Smyth OT OT OASIS DISCHARGE Social History Tobacco Use Types Packs/Day Years [...] Date Recorded PHQ2 TOTAL SCORE 0 09/02/2022 [facility] [place] of Occupat ional Health - Occupational Stress [...] suspected to have Coronavirus/COVID-19? No / Unsure 10/30/2022 7:49 AM CDT documented as of this encounter [...] st Contact Info) Description 07/25/2024 10:00 AM DISPATCHER AUTOMOBILE RENTAL Office Visit [facility] - Endocrinology [address] [place] [phone] Yosi Bustamante MD [address] [place] [address] 2L [place] [address] 07/26/2024 10:00 AM DISPATCHER AUTOMOBILE RENTAL Appointment [facility] DIAGNOSTIC RAD [address] [place] [phone] Neri Delgado MD [address] [place] [address] 07/26/2024 10:00 AM DISPATCHER AUTOMOBILE RENTAL Office Visit [facility] - ENT [address] [place] [phone] Myra Farmer, APPLICATION MANAGER [address] [place] [address] 2L [place] [phone] 07/26/2024 11:15 AM DISPATCHER AUTOMOBILE RENTAL Office Visit [facility] - ENT [address] [place] [phone] Neri Delgado MD [address] [place] [address] 08/02/2024 2:20 PM DISPATCHER AUTOMOBILE RENTAL Appointment [facility] INFUSION CENTER [address] [place] [address] 08/02/2024 3:00 PM DISPATCHER AUTOMOBILE RENTAL Office Visit [facility] - Hematology/Oncology [address] [place] [phone] Remi Beckett MD [address] [place] [phone] 08/18/2024 1:45 PM DISPATCHER AUTOMOBILE RENTAL Office Visit [facility] - ENT [address] [place] [phone] Neri Delgado MD [address] [place] [address] documented as of this encounter Visit Diagnoses Not on filedocumented in this encounter Home Health Visit - Care Plan Visit Details Visit Type -OT OASIS Dischar ge Discipline -Occupational Therapy Problems Problem Description Start Date Status Goals Interve ntions Decreased ADLs Disciplines: OT (HH/Hospice) Decreased independence in self-care including bathing, toileting and dressing upper body. 10/14/2022 Active 1 goal linked to scheduled/documen june intervention 1 goal intervention scheduled/document ed in this visit Decreased Upper Extremity Function Disciplines: OT (HH/Hospice) Decreased upper extremity function in Left upper extremity. 10/14/2022 Active 1 goal linked to scheduled/documen june intervention 1 goal intervention scheduled/document ed in this visit Goals Goal Associated Problem Outcome Goal Met? Visit Notes Patient demonstrates increased activities of daily living Description: - Improve UB DRESSING to IND within 30 DAYS -Don/doff socks using AE/tech with [employer]. 10/20: completed after educ today with cues only using sock aide 10/27: ordered sock aide; waiting on delivery -Perform shower transfer with SBA using AE/DME as recommended for safety 10/27: waiting on grab bars; ordered -Perform bathing in shower with min A or less using AE/tech. 10/27: sister still doing most washing-currently standing -Patient to be ind/safe with use of BSC for improved efficiency/safety with toileting at night 10/20: ACHIEVED - Demonstrate safe use of adaptive equipment within 30 days. - Improve functional mobility with walker within 30 days. - Demonstrate improved safety in home environment within 30 days. - Patient and Caregiver demonstrate ability to follow diagnosis and surgically related precautions within 30 days. Decreased ADLs Completed Yes Patient improves upper extremity function Description: - Increase functional use of left upper extremity for activities of daily living within 30 days. - Patient will have therapeutic home program in place within <2 weeks. Decreased Upper Extremity Function Completed Yes Interventions Intervention Associated Problem/Goal Status Variance Visit Notes ADLs Interventions Description: - Instruct in self-care including bathing, toileting, dressing upper body and dressing lower body. - Instruct in use of adaptive equipment and environmental adaptations. - Activities of daily living mobility training with walker. - Assess and make recommendations for increased safety. - Patient and Caregiver education. Problem:Decreased ADLs Goal:Patient demonstrates increased activities of daily living Completed Reviewed tech and educated on use of new sock aide. Patient ind after education. Also completed shower transfers-OT set up new grab bars in appropriate position. Patient demo ind/safety to get in/out of walk in shower including placing set in shower herself today. Upper Extremity Description: - Instruct in range of motion exercises and flexibility. - Instruct in therapeutic strengthening program. - Instruct in home program. - Patient and caregiver education. Problem:Decreased Upper Extremity Function Goal:Patient improves upper extremity function Completed Completed full UE HEP without cues. documented in this encounter Care Teams Speech Therapy Assistant Relationship Specialty Start Date End Date Joseph Manzanares MD [address] [place] [phone] PCP - General Internal Medicine 10/07/22 04/20/23 Adriana Adams DO [address] [place] [phone] Resident - PCP Internal Medicine 04/06/22 01/12/23 documented as of this encounter
--- OUTSIDE RECORDS SUMMARY | 2024-07-23 07:10 | XMS_ITS | Encounter Summary ---
Author Organization [facility] Health Address [address] [place] [address] Care Team Providers Care Vessel Slag Worker Name Role Phone Adriana Adams DO Unavailable Joseph Manzanares MD Primary Care Provider [phone] Encounter Details Date Type Department Care Team (Latest Contact Info) Description 11/02/2022 Travel Social History Tobacco Use Types Packs/Day Years Used Date Smoking Tobacco: Former Cigarettes 0.3 51 S tarted: 07/22/1973 Smokeless Tobacco: Never Comments:1-2 cigarettes per day current smoker Alcohol Use Standard Drinks/Week Comments No 0 (1 standard drink = 0.6 oz pur e alcohol) AUDIT-C Answer Date Recorded Q1: How often [...] Date Recorded PHQ2 TOTAL SCORE 0 09/02/2022 [facility] [place] of Occupat ional Health - Occupational Stress [...] place to sleep or slept in a fpc (including now)? No 10/02/2022 Sex and Gender [...] Contact Info) Description 07/25/2024 10:00 AM DIRECTOR NICU Office Visit [facility] - Endocrinology [address] [place] [address] Yosi Bustamante MD [address] [place] [address] 2L [place] [address] 07/26/2024 10:00 AM DIRECTOR NICU Appointment [facility] DIAGNOSTIC RAD [address] [place] [address] Neri Delgado MD [address] [place] [address] 07/26/2024 10:00 AM DIRECTOR NICU Office Visit [facility] - ENT [address] [place] [phone] Myra Farmer, INTERNAL COMBUSTION ENGINEER [address] [place] [address] 2L [place] [phone] 07/26/2024 11:15 AM DIRECTOR NICU Office Visit [facility] [address] [place] [phone] Neri Delgado MD [address] [place] [address] 08/02/2024 2:20 PM DIRECTOR NICU Appointment [facility] INFUSION CENTER [address] [place] [address] 08/02/2024 3:00 PM DIRECTOR NICU Office Visit [facility] - Hematology/Oncology [address] [place] [phone] Remi Beckett MD [address] [place] [phone] 08/18/2024 1:45 PM DIRECTOR NICU Office Visit [facility] [address] [place] [phone] Neri Delgado MD [address] [place] [address] documented as of this encounter Visit Diagnoses Not on filedocumented in this encounter Care Teams Vessel Slag Worker Relationship Specialty Start Date End Date Joseph Manzanares MD [address] [place] [phone] PCP - General Internal Medicine 10/07/22 04/20/23 Adriana Adams DO [address] [place] [phone] Resident - PCP Internal Medicine 04/06/22 01/12/23 documented as of this encounter
--- OUTSIDE RECORDS SUMMARY | 2024-07-23 07:10 | XMS_ITS | Encounter Summary ---
Author Organization [facility] Health Address [address] [place] [address] Care Team Providers Care Car Checker Name Role Phone Adriana Adams DO Unavailable Joseph Manzanares MD Primary Care Provider [phone] Reason for Visit * Auth/Cert (Routine) Specialty Diagnoses / Procedures Referred By Contac t Referred To Contact Referral ID Status Reason Start Date Expiration Date Visits Re quested Visits Authorized [id number] 1 1 Encounter Details Date Type Department Care Team (Latest Contact Info) Description 10/30/2022 9:35 AM CDT Home Care Visit [facility] [address] [place] [address] Mary Beth Sun, PT PT DISCIPLINE DISCHARGE Social History Tobacco Use Types Packs/Day [...] Date Recorded PHQ2 TOTAL SCORE 0 09/02/2022 [facility] [place] of Occupat ional Health - Occupational Stress [...] Sign Reading Time Taken Comments Blood Pressure 105/64 10/30/2022 12:35 PM CDT Pulse 87 10/30/2022 12:35 PM CDT Temperature 36.3 ??C (97.3 ??F) 10/30/2022 12:35 PM C DT Respiratory Rate 18 10/30/2022 12:35 PM CDT Oxygen Saturation 96% 10/30/2022 12:35 PM CDT Inhaled Oxygen Concentration - - Weight - [...] as of this encounter Miscellaneous Notes * Home Health - Mary Beth Sun, PT - 10/30/2022 12:12 PM CDT Present Condition/Subjective Findings/Living situation: Patient answers door with rollator walker upon PT arrival. Patient in agreement for treatment. Patient's choreworker is present. Patient reports things have been going fairly well but she did pull a muscle in her back yesterday when doing her OT exercises. Patient in agreement for PT Discipline Discharge today. Patient/caregiver response to treatment: Patient has done well over her therapy course. Incision isclosed with no drainage or s/s infection. Patient has demonstrated good understanding of her HEP and reports compliance. Patient is now independent with functional transfers and mobility in home but gait distances and activity tolerance remain limited by chronic hip OA. Patient has met all home care PT goals and is in agreement for PT Discipline Discharge today. documented in this encounter Plan of Treatment Upcoming Encounters Date Type Department Care Team (Late st Contact Info) Description 07/25/2024 10:00 AM COMPENSATION PROGRAMS MANAGER Office Visit [facility] - Endocrinology [address] [place] [address], [place] [address] Yosi Bustamante MD [address] [place] [address] [place] [address] 07/26/2024 10:00 AM COMPENSATION PROGRAMS MANAGER Appointment [facility] DIAGNOSTIC RAD [address] [place] [address] Neri Delgado MD [address] [place] [address] 07/26/2024 10:00 AM COMPENSATION PROGRAMS MANAGER Office Visit [facility] - ENT [address] [place] [phone] Myra Farmer, DIGITAL STRATEGIST [address] [place] [address] [place] [phone] 07/26/2024 11:15 AM COMPENSATION PROGRAMS MANAGER [facility] [address] [place] [phone] Neri Delgado MD [address] [place] [address] 08/02/2024 2:20 PM COMPENSATION PROGRAMS MANAGER Appointment [facility] INFUSION CENTER [address] [place] [address] 08/02/2024 3:00 PM COMPENSATION PROGRAMS MANAGER Office Visit [facility] - Hematology/Oncology [address] [place] [phone] Remi Beckett MD [address] [place] [phone] 08/18/2024 1:45 PM COMPENSATION PROGRAMS MANAGER Office Visit [facility] - ENT [address] [place] [phone] Neri Delgado MD [address] [place] [address] documented as of this encounter Visit Diagnoses Not on filedocumented in this encounter Home Health Visit - Care Plan Visit Details Visit Type -PT Discipline Di scharkaelyn Discipline -Physical Therapy Problems Problem Description Start Date Status Goals Interve ntions X Additional Home Health Orders Disciplines: All Disciplines (/Hospice) 10/14/2022 Active 1 goal linked to scheduled/docume nted intervention 1 goal intervention scheduled/documen june in this visit Pain Disciplines: PT ([facility]) Acute pain of grade 6 on a scale of 0-10. 10/14/2022 Resolved on 10/30/2022 1 goal linked to scheduled/docume nted intervention 1 goal intervention scheduled/documen june in this visit Gait Deficit Disciplines: PT (/[facility]) - Decreased ambulation requiring minimum level of assist. - Decreased quality of gait with gait deviations and/or impaired postural alignment. 10/14/2022 Resolved on 10/30/2022 1 goal linked to scheduled/docume nted intervention 1 goal intervention scheduled/documen june in this visit Transfer Deficit Disciplines: PT (/[facility]) - Decreased transfer ability requiring minimum level of assist related to LE weakness. - Requires caregiver instruction. 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 10/14/2022 Resolved on 10/30/2022 1 goal linked to scheduled/docume nted intervention 1 goal intervention scheduled/documen june in this visit Surgical Wound Disciplines: PT ([facility]) Neck incision-posteri or 10/14/2022 Resolved on 10/30/2022 1 goal linked to scheduled/docume nted intervention 1 problem intervention scheduled/documen june in this visit Goals Goal Associated Problem Outcome Goal Met? Visit Notes Additional Home Health Orders X Additional Home Health Orders Progressing No Patient reports decreased pain and/or increased functional activity Description: - Patient will report decreased cervical pain to 3 on a scale of 0-10 within 30 days. - Decreased cervical pain as evidenced by improved functional activity within 30 days. - Patient will demonstrate safe use of appropriate modality for pain management within 30 days. Pain Adequate for Discharge No Patient's pain level fluctuates but patient is independent with current pain management techniques. Patient improves ambulation and quality of gait Description: - Improved household ambulation as evidenced by ambulation with independent with device level of assist and four wheeled walker within 30 days. - Improved quality of gait as evidenced by improved kary and manuevering obstacles in home in 30 days. Gait Deficit Completed Yes Patient improves transfer ability Description: Improved transfer ability as evidenced by independent with device level of assist in 30 days. Transfer Deficit Completed Yes Patient increases strength and/or functional mobility Description: - Demonstrate good follow-through with progressive program within 30 days. - LE strength will increase from 3 to 4/5 manual muscle test grade in 30 days. - Increased functional mobility as evidenced by independent transfers from various surfaces within 30 days. Decreased Strength Completed Yes Patient performs home exercise program Description: - Demonstrates good follow-through with progressive exercise program within 30 days. - Patient will be able to demonstrate home program within 30 days. - Patient will be able to perform home program with independence in 30 days. Home Exercise Program Completed Yes Maintain Clean/Stable wound environment Description: Maintain clean/stable wound environment. Surgical Wound Completed Yes Interventions Intervention Associated Problem/Goal Status Variance Visit Notes Additional Home Health Orders Description: - Assess vital signs and notify MD of significant changes. - TEMPERATURE (F) ADULT PATIENT GREATER THAN 100.4 (ORAL) GREATER THAN 99.8 (AXILLARY) GREATER THAN 100 (TYMPANIC) LESS THAN 96 RESPIRATORY RATE GREATER THAN 24 LESS THAN 12 PULSE RATE GREATER THAN 100 LESS THAN 60 BLOOD PRESSURE ADULT PATIENT SYSTOLIC GREATER THAN 160 LESS THAN 90 DIASTOLIC GREATER THAN 90 LESS THAN 60 OXYGEN SATURATION LESS THAN 92% PAIN GREATER THAN 6 Problem:X Additional Home Health Orders Goal:Additional Home Health Orders Completed Vitals WNL Pain Management Description: - Implement appropriate modality for pain control. - Implement therapeutic exercise program for pain control. - Instruct Patient in pain management. Problem:Pain Goal:Patient reports decreased pain and/or increased functional activity Completed Completed this visit: Instruct patient/caregiver in pain management Reviewed pain medication and ice as needed for pain management. Patient voiced good understanding. Gait Deficit Description: Gait training. Problem:Gait Deficit Goal:Patient improves ambulation and quality of gait Completed Ambulates 100 feet x 2 in home with rollator walker, Independent. Slow kary, antalgic. Decreased left LE weight bearing with toe walking noted due to severe OA in left hip. Effortful. Decreased Strength Description: - Therapeutic exercise. - Upgrade home exercise program. Problem:Decreased Strength Goal:Patient increases strength and/or functional mobility Completed Completed this visit: Therapeutic exercise Strength 4-/5. Functional transfers independent. Home Exercise Program Description: - Upgrade home exercise program. - Instruct Patient in home exercise program. Problem:Home Exercise Program Goal:Patient performs home exercise program Completed Completed this visit: Instruct Patient/Caregiver in home exercise program Written HEP in home. Instructed to perform 2x daily, 10 reps each. Supine: ankle pumps, quad sets with 5 second hold, gluteal sets with 5 second hold, hip abduction, heel slides, straight leg raise (right LE only), short arc quad with 5 second hold, bridging. Seated long arc quad, marching, hip abduction, heel/toe raises. Instructed to perform exercise walks 3x daily: Set timer for 1 minute and ambulate in home with walker. Increase time as tolerated. Patient voiced good understanding. Wound Protocol per Physician Orders Description: Leave incision open to air. Cristhian to be removed at surgeon follow up on 10/21/22. Monitor for s/s infection. Notify surgeon of concerns. Problem:Surgical Wound Completed Incision open to air. [place] removed at MD appointment on 10/21. Incision is closed/healed. No s/s infection. Written wound care instructions in home. documented in this encounter Care Teams Car Checker Relationship Specialty Start Date End Date Joseph Manzanares MD [address] [place] [address] PCP - General Internal Medicine 10/07/22 04/20/23 Adriana Adams DO [address] [place] [address] Resident - PCP Internal Medicine 04/06/22 01/12/23 documented as of this encounter
--- OUTSIDE RECORDS SUMMARY | 2024-07-23 07:10 | XMS_ITS | Encounter Summary ---
Author Organization [facility] Health Address [address] [place] [address] Care Team Providers Care Senior Technical Recruiter Name Role Phone Adriana Adams DO Unavailable Joseph Manzanares MD Primary Care Provider [phone] Reason for Visit * Auth/Cert (Routine) Specialty Diagnoses / Procedures Referred By Contricardo t Referred To Contact Referral ID Status Reason Start Date Expiration Date Visits Re quested Visits Authorized [id number] 1 1 Encounter Details Date Type Department Care Team (Late st Contact Info) Description 10/21/2022 Home Care Visit [facility] Health [address] [place] [address] Kendra Smyth, OT CARE CONFERENCE Social History Tobacco Use Types Packs/Day Years [...] Date Recorded PHQ2 TOTAL SCORE 0 09/02/2022 [facility] of Occupat ional Health - [...] suspected to have Coronavirus/COVID-19? No / Unsure 10/20/2022 11:33 AM CDT documented as of this encounter [...] st Contact Info) Description 07/25/2024 10:00 AM PIPE STRIPPER [facility] [address] [place] [phone] Yosi Bustamante MD [address] [place] [address] 2L [place] [address] 07/26/2024 10:00 AM PIPE STRIPPER Appointment [facility] DIAGNOSTIC RAD [address] [place] [address] Neri Delgado MD [address] [place] [address] 07/26/2024 10:00 AM PIPE STRIPPER [facility] E[facility] [address] [place] [phone] Myra Farmer, HEALTH AND SOCIAL CARE TEACHER [address] [place] [address] 2L [place] [phone] 07/26/2024 11:15 AM PIPE STRIPPER [facility] [address] [place] [phone] Neri Delgado MD [address] [place] [address] 08/02/2024 2:20 PM PIPE STRIPPER Appointment [facility] [address] [place] [address] 08/02/2024 3:00 PM PIPE STRIPPER Office Visit [facility]ician Group - Hematology/Oncology [address] [place] [phone] [place] [address] [place] [phone] 08/18/2024 1:45 PM PIPE STRIPPER Office Visit [facility] [address] [place] [address] Neri Delgado MD [address] [place] [address] documented as of this encounter Visit Diagnoses Not on filedocumented in this encounter Home Health Visit - Care Plan Visit Details Visit Type -Care Conference Discipline -Shared Problems Problem Description Start Date Status Goals Interve ntions X Additional Home Health Orders Disciplines: All Disciplines (HH/Hospice) 10/14/2022 Active 1 goal linked to scheduled/document ed intervention 1 goal intervention scheduled/document ed in this visit Goals Goal Associated Problem Outcome Goal Met? Visit Notes Additional Home Health Orders X Additional Home Health Orders No Interventions Intervention Associated Problem/Goal Status Variance Visit [...] Home Health Orders Goal:Additional Home Health Orders Scheduled documented in this encounter Care Teams Senior Technical Recruiter Relationship Specialty Start Date End Date Joseph Manzanares MD [address] [place] [phone] PCP - General Internal Medicine 10/07/22 04/20/23 Adriana Adams DO [address] [place] [phone] Resident - PCP Internal Medicine 04/06/22 01/12/23 documented as of this encounter
--- OUTSIDE RECORDS SUMMARY | 2024-07-23 07:10 | XMS_ITS | Encounter Summary ---
Author Organization [facility] Health Address [address] [facility] [place] [address] Care Team Providers Care Global Security Architect Name Role Phone Joseph Manzanares MD Primary Care Provider Tiana Naylor DO Unavailable [phone] Reason for Visit * Reason Comments Throat Problem * Evaluate (Routine) - Closed Specialty Diagnoses / Procedures Referred By Yuan robins Referred To Contact ENT-Otolaryngology Diagnoses S/P cervical spinal fusion Coy Gómez MD [address] [place] [address] [place] [address] [facility] [address] [place] [phone] Referral ID Status Reason Start Date Expiration Date V isits Requested Visits Authorized [id number] Closed Specialty Services Required 01/20/2023 01/20/2024 1 1 Encounter Details Date Type Department Care Team (Late st Contact Info) Description 01/29/2023 3:30 PM CDT Office Visit [facility] - ENT [address] [place] [phone] Neri Delgado MD [address] [place] [address] Thyroid cancer (HCC) (Primary Dx); S/P cervical spinal fusion Social History Tobacco Use Types Packs/Day Years [...] Date Recorded PHQ2 TOTAL SCORE 1 11/25/2022 [facility] - [...] Sign Reading Time Taken Comments Blood Pressure 129/69 01/29/2023 3:14 PM CDT Pulse 87 01/29/2023 3:14 PM CDT Temperature - - Respiratory Rate - - Oxygen Saturation - - Inhaled Oxygen Concentration - - Weight 62.1 kg (137 lb) 01/29/2023 3:14 PM CDT Height 157.5 cm (5' 2) 01/29/2023 3:14 PM CDT Body Mass Index 25.06 01/29/2023 3:14 PM [...] this encounter Patient Instructions * Patient Instructions* Cathy Aguero - 01/29/2023 3:24 PM CDT Thank you for visiting [facility] Otolaryngology - Head & Neck Surgery. [...] an appointment, please call our office at [phone] Wednesday through Wednesday from 8:30 am to4:30 pm. You can also request a routine appointment through your [facility] account. Prescription Refills Contact your pharmacy to [...] the medical exchange at and ask the waxer operator to page the ENT physician production cook. *Caller ID blocking service will need to be turned off for your call to be returned. We also specialize in Hearing Aids, Allergy testing, swallowing disorders, voice problems, cancer diagnosis, and so much more. Visit our website at [email or web address] for information about our practice and an interactive health encyclopedia. documented in this encounter Progress Notes * Rod Esquivel - 01/29/2023 3:30 PM CDT CC: Chief Complaint Patient presents with ??? Throat Problem Diagnosis: Site: Thyroid Histology: PTC Stage: [id number] AJCC IVb Details: Positive margins, LVI +, PNI + (including Right RLN), nodes, JADON + ?? Treatment History: 08/19/20: total thyroidectomy requiring sacrifice of Right RLN/tracheal resection/reanastamosis, bilateral lateral and central neck dissection (Comer) 02/05/2022: Excision of right central neck mass- Palpable tumor approximately 1 cm in size overlying the right thyroid ala and cricothyroid membrane excised including overlying strap musculature. (Massa) 09/21/22 Completed 2400 Gy to the cervical spine (Arnaldo) 10/02/2022: C2-T2 fusion and decompression C3-C7 and resection extramedullary spine tumor (Dalia) HPI: Brisa Hogan is a 61 year old female presenting for follow up of her complex thyroid cancer andassociated dysphonia/dysphagia. Briefly, she complains of a 1- month history of difficulty swallowing solid foods, particularly those that are dry in nature. She has compensated by modifying her diet to include softer foods, but has still had an associated 20 pound weight loss in the last two months. She also reports difficulty swallowing liquids since her most recent spinal surgery in September 2022,with sips of water necessitating positional changes to avoid aspiration. She does not report any fevers, new neck masses, or other associated aches or pains. Medical History: Past Medical History: Past Medical [...] Thyroid cancer (CMS/HCC) 10/14/2020 ??? Tracheal mass Past Surgical History: [...] Medications: Current Outpatient Medications Medication Sig ??? acetaminophen (TYLENOL) 500 MG tablet Take 2 (two) tablets by mouth every 6 hours as needed Reasons: Pain ??? atorvastatin (Lipitor) 40 MG tablet TAKE 1 TABLET BY MOUTH EVERYDAY AT BEDTIME (Patient taking differently: Take 1 (one) tablet by mouth once daily TAKE 1 TABLET BY MOUTH EVERYDAY AT BEDTIME) ??? buPROPion SR 12hr (Wellbutrin-SR) 100 MG tablet Take 1 (one) tablet by mouth 2 times daily ??? calcitriol (Rocaltrol) 0.5 MCG capsule TAKE 1 CAPSULE BY MOUTH TWICE A DAY ??? GWACGJZ-IEDQUZPJL-GVXI PO Take by mouth once daily ??? celecoxib (CeleBREX) 200 MG capsule Take 1 (one) capsule by mouth once daily ??? cetirizine (ZYRTEC) 10 MG tablet Take 1 (one) tablet by mouth once daily ??? clonazePAM (KLONOPIN) 0.5 MG tablet Take [...] fluticasone propionate (Flonase) 50 MCG/ACT nasal spray [place] 2 (two) sprays into each nostril once daily ??? gabapentin (Neurontin) 300 MG capsule Take 1 (one) capsule by mouth 3 times daily ??? FBLNZQ-IHHTJIATW-IQR-C-HYAL PO Take 1 tablet by mouth 3 [...] TABLET BY MOUTH ONCE DAILY FOR STOMACH (Patient taking differently: Take 1 (one) tablet by mouth once daily TAKE ONE TABLET BY MOUTH ONCE DAILY FOR STOMACH) ??? PARoxetine (PAXIL) 40 MG tablet Take 1 (one) tablet by mouth once daily ??? traZODone (DESYREL) 50 MG tablet Take 1 (one) tablet by mouth at bedtime ??? vitamin E (TOCOPHERYL) 200 UNIT capsule Take 1 (one) capsule by mouth 3 times daily No current facility-administered medications for this visit. Allergies: Allergies Allergen Reactions ??? Kiwi Extract Anaphylaxis Social History: Smokin+ pack-years, currently ~5 cigarettes/day. Exam: Vitals: 01/29/23 1514 BP: 129/69 Pulse: 87 Weight: 62.1 kg (137 lb) Height: 1.575 m (5' 2) General: [...] Neurologic: Cranial nerves III-XII grossly intact ?? Procedure Note Anesthesia: Lidocaine 2% and Stone-Synephrine 1/2% Endoscopy Type: Flexible Vynbb-Havhlnuhfsatzx-Nlllpwweswoy Procedure Details: Informed consent was obtained. The patient was placed in the sitting position. After topical anesthesia and decongestion, the 4 mm laryngoscope was passed. The nasal cavities, nasopharynx, oropharynx, hypopharynx, and larynx were all examined. Vocal cords were examined during resp iration and phonation. Findings: -Right vocal cord paralysis with early good glottic closure. No other lesions or masses or new findings. Disposition: The patient tolerated procedure well. Complications: None IMAGING: NM Tumor local spect/whole body scan 08/19/22 - focal uptake in left anterior mid-cervical spine, nolesions noted in the central neck or tracheoesophageal groove. Assessment/Plan: 1. 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 2. dysphagia, likely multifactorial in origin Disease status: s/p radiation therapy and cervical spinal fusion likely contributing to dysphagia. Discuss with CONVEYOR WEIGHER OPERATOR and re-evaluate at follow-up appointment in 6 months. Follow up: 6 months Rod Haq 01/29/23 4:23 PM Associated attestation - Neri Delgado MD - 01/30/2023 7:14 AM CDT Attending Physician Supervisory Note I have verified the documentation of the Medical student, including all history, exam, and medical decision-making details. I have personally performed a physical exam and have personally reviewed the data to support my medical decision-making as outlined in the student's note, and I arrived independently at the same conclusion. 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 Neck incisions well healed. Stable right vocal cord paralysis Imaging: c-spine MRI shows decompression but with likely residual disease A/P: Thyroid cancer s/p multimodality treatment with overall modest degree of dysphagia consideringthe extent of therapy she has underwent. CONVEYOR WEIGHER OPERATOR eval today. Can consider MBS to further evaluate or vocal cord injection if symptoms worsen. Neri Delgado MD documented in this encounter Procedure Notes * Neri Delgado MD - 01/29/2023 4:13 PM CDTAssociated Order(s): PROC ENDOSCOPY-LARYNX Procedure(s): KY LARYNGOSCOPY,FLEX FIBER,DIAGNOSTIC Pre-Procedure Diagnose(s): S/P cervical spinal fusion Procedure Note Anesthesia: Lidocaine 2% and Stone-Synephrine 1/2% Endoscopy Type: Flexible Zaccs-Ihvoyitvloaurp-Pvxpyuucvhce Procedure Details: Informed consent was obtained. The patient was placed in the sitting position. After topical anesthesia and decongestion, the 4 mm laryngoscope was passed. The nasal cavities, nasopharynx, oropharynx, hypopharynx, and larynx were all examined. Vocal cords were examined during resp iration and phonation. Findings: -Right vocal cord paralysis with early good glottic closure. No other lesions or masses or new findings. Disposition: The patient tolerated procedure well. Complications: None documented in this encounter Plan of Treatment Upcoming Encounters Date Type Department Care Team (Late st Contact Info) Description 07/25/2024 10:00 AM STOCK PREPARATION SUPERVISOR Office Visit [facility] - Endocrinology [address] [place] [phone] oYsi Bustamante MD [address] [place] [address] 2L Div [place] [address] 07/26/2024 10:00 AM STOCK PREPARATION SUPERVISOR Appointment [facility] DIAGNOSTIC RAD [address] [place] [phone] Neri Delgado MD [address] [place] [address] 07/26/2024 10:00 AM STOCK PREPARATION SUPERVISOR Office Visit [facility] - ENT [address] [place] [phone] Myra Farmer, CONVEYOR WEIGHER OPERATOR [address] [place] [address] 2L [place] [phone] 07/26/2024 11:15 AM STOCK PREPARATION SUPERVISOR Office Visit [facility] - ENT [address] [place] [phone] Neri Delgado MD [address] [place] [address] 08/02/2024 2:20 PM STOCK PREPARATION SUPERVISOR Appointment [facility] [address] [place] [address] 08/02/2024 3:00 PM STOCK PREPARATION SUPERVISOR Office Visit [facility] - Hematology/Oncology [address] [place] [phone] Remi Beckett MD [address] [place] [phone] 08/18/2024 1:45 PM STOCK PREPARATION SUPERVISOR Office Visit [facility] - ENT [address] [place] [phone] Neri Delgado MD [address] [place] [address] documented as of this encounter Procedures Procedure Name Priority Date/Time Associated Diagnosis Comments KY LARYNGOSCOPY,FLEX FIBER,DIAGNOSTIC Routine 01/29/2023 4:13 PM CDT S/P cervical spinal fusion documented in this encounter Results * KY LARYNGOSCOPY,FLEX FIBER,DIAGNOSTIC (01/29/2023 4:13 PM CDT) Narrative Neri Delgado MD - 01/29/2023 4:13 PM CDT Neri Delgado MD ? 01/30/2023 ??7:14 AM Procedure Note Anesthesia: Lidocaine 2% and Stone-Synephrine 1/2% Endoscopy Type: ??Flexible Yaijf-Lhirigprrbemur-Bgqjlepccxvs Procedure Details: ??Informed consent was obtained. ??The [...] (HCC)- Primary Malignant neoplasm of thyroid gland S/P cervical spinal fusion Arthrodesis status documented in this encounter Care Teams Global Security Architect Relationship Specialty Start Date End Date Joseph Manzanares MD [address] [place] [phone] PCP - General Internal Medicine 10/07/22 04/20/23 Tiana Naylor DO [address] [place] [address] Resident - PCP Internal Medicine 01/13/23 04/20/23 documented as of this encounter
--- OUTSIDE RECORDS SUMMARY | 2024-07-23 07:10 | XMS_ITS | Encounter Summary ---
Author Organization [facility] Health Address [address] [facility] [place] [address] Care Team Providers Care Thickener Operator Name Role Phone Joseph Manzanares MD Primary Care Provider [phone] Tiana Naylor DO Unavailable [phone] Reason for Visit * Reason Onset Date Comments MEDICATION REFILL 02/03/2023 Rx Medication Issue 02/03/2023 Encounter Details Date Type Department Care Team (Late st Contact Info) Description 02/03/2023 Refill [facility] - Internal Med [address] [facility] [place] [address] Joseph Manzanares MD [address] [place] [address] MEDICATION REFILL; Rx Medication Issue Social History Tobacco Use Types Packs/Day Years [...] Date Recorded PHQ2 TOTAL SCORE 1 11/25/2022 [facility] - Occupational Stress [...] encounter Miscellaneous Notes * Telephone Encounter - Esther Branch RN - 02/03/2023 1:52 PM CDT Pt calling stating that her Pantoprazole was not ordered by a Medicaid registered provider. Triage dc'd the order per Dr. Naylor. Triage resubmitted the Pantorazole order via escribe per policy under Dr. Manzanares (the attending for Dr. Naylor) documented in this encounter Plan of Treatment Upcoming Encounters Date Type Department Care Team (Late st Contact Info) Description 07/25/2024 10:00 AM WOOD BUFFER Office Visit [facility] - Endocrinology [address] [place] [address], [place] [phone] Yosi Bustamante MD [address] [place] [address] [place] [address] 07/26/2024 10:00 AM WOOD BUFFER Appointment [facility] DI[facility]NOSTIC RAD [address] [place] [phone] Neri Delgado MD [address] [place] [address] 07/26/2024 10:00 AM WOOD BUFFER Office Visit [facility] - ENT [address] [place] [phone] Myra Farmer, COMPANY SECRETARY [address] [place] [address] [place] [phone] 07/26/2024 11:15 AM WOOD BUFFER [facility]NT [address] [place] [phone] Neri Delgado MD [address] [place] [address] 08/02/2024 2:20 PM WOOD BUFFER Appointment [facility] [address] [place] [address] 08/02/2024 3:00 PM WOOD BUFFER Office Visit [facility] - Hematology/Oncology [address] [place] [phone] Remi Beckett MD [address] [place] [phone] 08/18/2024 1:45 PM WOOD BUFFER Office Visit [facility] - ENT [address] [place] [phone] Neri Delgado MD [address] [place] [address] documented as of this encounter Visit Diagnoses Diagnosis Gastroesophageal reflux disease, unspecified whether esophagitis present documented in this encounter Care Teams Thickener Operator Relationship Specialty Start Date End Date Joseph Manzanares MD [address] [place] [phone] PCP - General Internal Medicine 10/07/22 04/20/23 Tiana Naylor DO [address] [place] [address]?? [place] [address] Resident - PCP Internal Medicine 01/13/23 04/20/23 documented as of this encounter
--- OUTSIDE RECORDS SUMMARY | 2024-07-23 07:10 | XMS_ITS | Encounter Summary ---
Author Organization [facility] Health Address [address] [place] [address] Care Team Providers Care Automobile Assembler Name Role Phone Joseph Manzanares MD Primary Care Provider Tiana Naylor DO Unavailable [phone] Encounter Details Date Type Department Care Team (Latest Contact Info) Description 01/20/2023 Travel Social History Tobacco Use Types Packs/Day [...] st Contact Info) Description 07/25/2024 10:00 AM DRIVER ENGINEER [facility] End[facility]ology [address] [place] [phone] Yosi Bustamante MD [address] [place] [address] 2L [place] [address] 07/26/2024 10:00 AM DRIVER ENGINEER Appointment [facility] DIAGNOSTIC RAD [address] [place] [phone] Neri Delgado MD [address] [place] [address] 07/26/2024 10:00 AM DRIVER ENGINEER [facility] ENT [address] [place] [phone] Myra Farmer, A AND P TECHNICIAN [address] [place] [address] 2L [place] [address] 07/26/2024 11:15 AM DRIVER ENGINEER [facility] [address] [place] [phone] Neri Delgado MD [address] [place] [address] 08/02/2024 2:20 PM DRIVER ENGINEER Appointment [facility] [address] [place] [address] 08/02/2024 3:00 PM DRIVER ENGINEER Office Visit [facility] Group - Hematology/Oncology [address] [place] [phone] Remi Beckett MD [address] [place] [phone] 08/18/2024 1:45 PM DRIVER ENGINEER Office Visit [facility] - ENT [address] [place] [phone] Neri Delgado MD [address] [place] [address] documented as of this encounter Visit Diagnoses Not on filedocumented in this encounter Care Teams Automobile Assembler Relationship Specialty Start Date End Date Joseph Manzanares MD [address] [place] [phone] PCP - General Internal Medicine 10/07/22 04/20/23 Tiana Naylor DO [address] [place] [address]?? [place] [address] Resident - PCP Internal Medicine 01/13/23 04/20/23 documented as of this encounter
--- OUTSIDE RECORDS SUMMARY | 2024-07-23 07:10 | XMS_ITS | Encounter Summary ---
Author Organization [facility] Health Address [address] [facility] [place] [address] Care Team Providers Care Residency Director Name Role Phone Adriana Adams DO Unavailable Joseph Manzanares MD Primary Care Provider [phone] Encounter Details Date Type Department Care Team (Late st Contact Info) Description 11/19/2022 Orders Only [facility] [address] [place] [phone] Coy Gómez MD [address] [facility] 2L [place] [address] Spinal cord tumor ; S/P cervical spinal fusion Social History Tobacco [...] Date Recorded PHQ2 TOTAL SCORE 0 09/02/2022 [facility] of Occupat ional [...] st Contact Info) Description 07/25/2024 10:00 AM MOLTEN IRON POURER Office Visit [facility] - Endocrinology [address] [place] [phone] Yosi Bustamante MD [address] [place] [address] 2L [place] [address] 07/26/2024 10:00 AM MOLTEN IRON POURER Appointment [facility] DI[facility]NO[facility] RAD [address] [place] [phone] Neri Delgado MD [address] [place] [address] 07/26/2024 10:00 AM MOLTEN IRON POURER Office Visit [facility] - ENT [address] [place] [phone] Myra Farmer, ZAIN [address] [place] [address] 2L [place] [phone] 07/26/2024 11:15 AM MOLTEN IRON POURER Office Visit [facility] - ENT [address] [place] [phone] Neri Delgado MD [address] [place] [address] 08/02/2024 2:20 PM MOLTEN IRON POURER Appointment [facility] [place] [address] 08/02/2024 3:00 PM MOLTEN IRON POURER Office Visit [facility] Group - Hematology/Oncology [address] [place] [phone] [place] [address] [place] [phone] 08/18/2024 1:45 PM MOLTEN IRON POURER Office Visit [facility] Group - ENT [address] [place] [phone] Neri Delgado MD [address] [place] [address] documented as of this encounter Visit Diagnoses Diagnosis 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
--- OUTSIDE RECORDS SUMMARY | 2024-07-23 07:10 | XMS_ITS | Encounter Summary ---
Author Organization [facility] Health Address [address] [facility] [place] [address] Care Team Providers Care Roll Skinner Name Role Phone Adriana Adams DO Unavailable Joseph Manzanares MD Primary Care Provider [phone] Encounter Details Date Type Department Care Team (Latest Contact Info) Description 01/12/2023 Travel Social History Tobacco Use Types Packs/Day [...] st Contact Info) Description 07/25/2024 10:00 AM PINSETTER MECHANIC HELPER Office Visit [facility] - Endocrinology [address] [place] [phone] Yosi Bustamante MD [address] [place] [address] 2L [place] [address] 07/26/2024 10:00 AM PINSETTER MECHANIC HELPER Appointment [facility]AGNO[facility]IC RAD [address] [place] [address] Neri Delgado MD [address] [place] [address] 07/26/2024 10:00 AM PINSETTER MECHANIC HELPER Office Visit [facility] - ENT [address] [place] [phone] Myra Farmer, STENOGRAPHIC COURT REPORTER [address] [place] [address] 2L DIV [place] [phone] 07/26/2024 11:15 AM PINSETTER MECHANIC HELPER Office Visit [facility] - ENT [address] [place] [phone] Neri Delgado MD [address] [place] [address] 08/02/2024 2:20 PM PINSETTER MECHANIC HELPER Appointment [facility] [address] [place] [address] 08/02/2024 3:00 PM PINSETTER MECHANIC HELPER Office Visit [facility]ician Group - Hematology/Oncology [address] [place] [phone] Remi Beckett MD [address] [place] [address] 08/18/2024 1:45 PM PINSETTER MECHANIC HELPER Office Visit [facility] - ENT [address] [place] [phone] Neri Delgado MD [address] [place] [address] documented as of this encounter Visit Diagnoses Not on filedocumented in this encounter Care Teams Roll Skinner Relationship Specialty Start Date End Date Joseph Manzanares MD [address] [place] [address] PCP - General Internal Medicine 10/07/22 04/20/23 Adriana Adams DO [address] [place] [address] Resident - PCP Internal Medicine 04/06/22 01/12/23 documented as of this encounter
--- OUTSIDE RECORDS SUMMARY | 2024-07-23 07:10 | XMS_ITS | Encounter Summary ---
Author Organization [facility] Health Address [address] [place] [address] Care Team Providers Care Tennis Desk Team Member Name Role Phone Adriana Adams DO Unavailable Joseph Manzanares MD Primary Care Provider [phone] Reason for Visit * Auth/Cert (Routine) Specialty Diagnoses / Procedures Referred By Contac t Referred To Contact Referral ID Status Reason Start Date Expiration Date Visits Re quested Visits Authorized [id number] 1 1 Encounter Details Date Type Department Care Team (Late st Contact Info) Description 10/23/2022 9:35 AM CDT Home Care Visit [facility] Home Health [address] [place] [phone] Mary Beth Sun, PT PT HOME VISIT Social History Tobacco Use Types Packs/Day Years [...] Date Recorded PHQ2 TOTAL SCORE 0 09/02/2022 [employer] [place] of Occupat ional Health - Occupational Stress [...] suspected to have Coronavirus/COVID-19? No / Unsure 10/23/2022 7:53 AM CDT documented as of this encounter Last Filed Vital Signs Vital Sign Reading Time Taken Comments Blood Pressure 110/68 10/23/2022 12:37 PM CDT Pulse 89 10/23/2022 12:37 PM CDT Temperature 36.3 ??C (97.3 ??F) 10/23/2022 12:37 PM C DT Respiratory Rate 18 10/23/2022 12:37 PM CDT Oxygen Saturation 96% 10/23/2022 12:37 PM CDT Inhaled Oxygen Concentration - - [...] Health - Mary Beth Sun, PT - 10/23/2022 12:13 PM CDT Present Condition/Subjective Findings/Living situation: Patient answers door with rollator walker upon PT arrival. Patient in agreement for treatment. Patient reports she is doing well today. Patientstates cristhian were removed at MD appointment on Wednesday. Patient states she has been working on her exercises. Patient/caregiver response to treatment: Patient demonstrates good understanding of HEP and reportscompliance. Patient has more pain/weakness with exercises on left LE. Patient demonstrates increasing safety and independence with functional transfers and gait in home. Plan for next visit: Review HEP, Review transfers, Progress gait, Attempt stairs as tolerated documented in this encounter Plan of Treatment Upcoming Encounters Date Type Department Care Team (Late st Contact Info) Description 07/25/2024 10:00 AM TAX SERVICES SPECIALIST Office Visit [facility] - Endocrinology [address] [place] [address], [place] [phone] Yosi Bustamante MD [address] [place] [address] [place] [address] 07/26/2024 10:00 AM TAX SERVICES SPECIALIST Appointment [facility] [address] [place] [phone] Neri Delgado MD [address] [place] [address] 07/26/2024 10:00 AM TAX SERVICES SPECIALIST Office Visit [facility] - ENT [address] [place] [phone] Myra Farmer, TUBE DRAWER [address] [place] [address] [place] [phone] 07/26/2024 11:15 AM TAX SERVICES SPECIALIST Office Visit [facility] - ENT [address] [place] [phone] Neri Delgado MD [address] [place] [phone] 08/02/2024 2:20 PM TAX SERVICES SPECIALIST Appointment [facility] [address] [place] [address] 08/02/2024 3:00 PM TAX SERVICES SPECIALIST Office Visit [facility] - Hematology/Oncology [address] [place] [phone] Remi Beckett MD [address] [place] [phone] 08/18/2024 1:45 PM TAX SERVICES SPECIALIST Office Visit [facility] - ENT [address] [place] [phone] Neri Delgado MD [address] [place] [phone] documented as of this encounter Visit Diagnoses Not on filedocumented in this encounter Home Health Visit - Care Plan Visit Details Visit Type -PT Home Visit Discipline -Physical Therapy Problems Problem Description Start Date Status Goals Interve ntions X Additional Home Health Orders Disciplines: All Disciplines (HH/Hospice) 10/14/2022 Active 1 goal linked to scheduled/documen june intervention 1 goal intervention scheduled/documen june in this visit Pain Disciplines: PT (/[facility]) Acute pain of grade 6 on a scale of 0-10. 10/14/2022 Active 1 goal linked to scheduled/documen june intervention 1 goal intervention scheduled/documen june in this visit Decreased Bed Mobility Disciplines: PT (/[facility]) Decreased bed mobility. 10/14/2022 Active 1 goal linked to scheduled/documen june intervention 1 goal intervention scheduled/documen june in this visit Gait Deficit Disciplines: PT (/[facility]) - Decreased ambulation requiring minimum level of assist. - Decreased quality of gait with gait deviations and/or impaired postural alignment. 10/14/2022 Active 1 goal linked to scheduled/documen june intervention 1 goal intervention scheduled/documen june in this visit Transfer Deficit Disciplines: PT ([facility]) - Decreased transfer ability requiring minimum level of assist related to LE weakness. - Requires caregiver instruction. 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 10/14/2022 Active 1 goal linked to scheduled/documen june intervention 1 goal intervention scheduled/documen june in this visit Surgical Wound Disciplines: PT ([facility]) Neck incision-posteri or 10/14/2022 Active 1 goal linked to scheduled/documen june intervention 1 problem intervention scheduled/documen june in [...] for pain management within 30 days. Pain Progressing No Patient improves bed mobility Description: Improved bed mobility as evidenced by moving in bed with independent without device level of assist within 30 days. Decreased Bed Mobility Progressing No Patient improves ambulation and quality of gait Description: - Improved household ambulation as evidenced by ambulation with independent with device level of assist and four wheeled walker within 30 days. - Improved quality of gait as evidenced by improved kary and manuevering obstacles in home in 30 days. Gait Deficit Progressing No Patient improves transfer ability Description: Improved transfer ability as evidenced by independent with device level of assist in 30 days. Transfer Deficit Progressing No Patient increases strength and/or functional mobility Description: - Demonstrate good follow-through with progressive program within 30 days. - LE strength will increase from 3 to 4/5 manual muscle test grade in 30 days. - Increased functional mobility as evidenced by independent transfers from various surfaces within 30 days. Decreased Strength Progressing No Patient performs home exercise program Description: - Demonstrates good follow-through with progressive exercise program within 30 days. - Patient will be able to demonstrate home program within 30 days. - Patient will be able to perform home program with independence in 30 days. Home Exercise Program Progressing No Maintain Clean/Stable wound environment Description: Maintain clean/stable wound environment. Surgical Wound Progressing No Interventions Intervention Associated Problem/Goal Status Variance [...] Completed this visit: Instruct patient/caregiver in pain management. Reviewed pain medication and ice as needed for pain management. Patient voiced good understanding. Instruct Bed Mobility Description: Instruct Patient in bed mobility techniques. Problem:Decreased Bed Mobility Goal:Patient improves bed mobility Completed Supine to/from sit, SBA. Effortful. Gait Deficit Description: Gait training. Problem:Gait Deficit Goal:Patient improves ambulation and quality of gait Completed Ambulates 100 feet x 2 in home with rollator walker, SBA. Slow kary, antalgic. Decreased left LE weight bearing with toe walking noted due to severe OA in left hip. Effortful. Decreased Strength Description: - Therapeutic exercise. - Upgrade home exercise program. Problem:Decreased Strength Goal:Patient increases strength and/or functional mobility Completed Completed this visit: Therapeutic exercise Functional transfers: sit to/from stand: SBA, effortful from lower surfaces. Cues for sequencing and safety. toilet: SBA, effortful. Cues for sequencing and safety in absence of grab bars. shower: NT. Defer to OT. Home Exercise Program Description: - Upgrade home exercise program. - Instruct Patient in home exercise program. Problem:Home Exercise Program Goal:Patient performs home exercise program Completed Completed this visit: Instruct Patient/Caregiver in home exercise program. Written HEP in home. Instructed to perform 2x daily, 10 reps each. Supine: ankle pumps, quad sets with 5 second hold, gluteal sets with 5 second hold, hip abduction, heel slides, straight leg raise (right LE only), short arc quad with 5 second hold, bridging. Added seated long arc quad, marching, hip abduction, heel/toe raises. Instructed to perform exercise walks 3x daily: Set timer for 1 minute and ambulate in home with walker. Increase time as tolerated. Patient voiced good understanding. Wound Protocol per Physician Orders Description: Leave incision open to air. Anson to be removed at surgeon follow up on 10/21/22. Monitor for s/s infection. Notify surgeon of concerns. Problem:Surgical Wound Completed Incision open to air. Cristhian removed at MD appointment on 10/21. No s/s infection. Written wound care instructions in home. documented in this encounter Care Teams Tennis Desk Team Member Relationship Specialty Start Date End Date Joseph Manzanares MD [address] [place] [phone] PCP - General Internal Medicine 10/07/22 04/20/23 Adriana Adams DO [address] [place] [phone] Resident - PCP Internal Medicine 04/06/22 01/12/23 documented as of this encounter
--- OUTSIDE RECORDS SUMMARY | 2024-07-23 07:10 | XMS_ITS | Encounter Summary ---
Author Organization [facility] Health Address [address] [place] [address] Care Team Providers Care Clinical Nutritionist Name Role Phone Adriana Adams DO Unavailable Joseph Manzanares MD Primary Care Provider [phone] Reason for Visit * Auth/Cert (Routine) Specialty Diagnoses / Procedures Referred By Contricardo t Referred To Contact Referral ID Status Reason Start Date Expiration Date Visits Re quested Visits Authorized [id number] 1 1 Encounter Details Date Type Department Care Team (Late st Contact Info) Description 11/03/2022 8:00 AM CDT Home Care Visit [facility] at Home Home Health [address] [place] [phone] Kendra Smyth OT OT HOME VISIT Social History Tobacco Use Types [...] Date Recorded PHQ2 TOTAL SCORE 0 09/02/2022 [facility] [place] of Occupat ional Health - Occupational Stress [...] Sign Reading Time Taken Comments Blood Pressure 128/68 11/03/2022 10:58 AM CDT Pulse 84 11/03/2022 10:58 AM CDT Temperature 36.6 ??C (97.9 ??F) 11/03/2022 10:58 AM C DT Respiratory Rate - - Oxygen Saturation 97% 11/03/2022 10:58 AM CDT Inhaled Oxygen Concentration - - [...] No 10/02/2022 documented as of this encounter OR Notes * Case Communication - Kendra Smyth OT - 11/03/2022 11:30 AM CDTBrisa Hogan is concluding her HH OT and PT this week. She would like to transition to OP PT (no need for OT) to address her L leg and L arm weakness if possible. She would like the orders sent to [facility] if possible: Fax number is [phone] She is doing well in her home and is compliant with her UE and LE HEP thus far. Thank you for htis referral. Please contact me with any questions or concerns. documented in this encounter Plan of Treatment Upcoming Encounters Date Type Department Care Team (Late st Contact Info) Description 07/25/2024 10:00 AM FRETTED INSTRUMENTS INSPECTOR Office Visit [facility] - Endocrinology [address] [place] [address], [place] [phone] Yosi Bustamante MD [address] [place] [address] 2L Div of [place]ocrin[place] [address] 07/26/2024 10:00 AM FRETTED INSTRUMENTS INSPECTOR Appointment [facility] [address] [place] [phone] Neri Delgado MD [address] [place] [phone] 07/26/2024 10:00 AM FRETTED INSTRUMENTS INSPECTOR Office Visit [facility] - ENT [address] [place] [phone] Myra Farmer, SCALLOPER [address] [place] [address] [place] [phone] 07/26/2024 11:15 AM FRETTED INSTRUMENTS INSPECTOR Office Visit [facility] - ENT [address] [place] [phone] Neri Delgado MD [address] [place] [phone] 08/02/2024 2:20 PM FRETTED INSTRUMENTS INSPECTOR Appointment [facility] [address] [place] [phone] 08/02/2024 3:00 PM FRETTED INSTRUMENTS INSPECTOR Office Visit [facility] - Hematology/Oncology [address] [place] [phone] Remi Beckett MD [address] [place] [phone] 08/18/2024 1:45 PM FRETTED INSTRUMENTS INSPECTOR Office Visit [facility] - ENT [address] [place] [phone] Neri Delgado MD [address] [place] [phone] documented as of this encounter Visit Diagnoses Not on filedocumented in this encounter Home Health Visit - Care Plan Visit Details Visit Type -OT Home Visit Discipline -Occupational Therapy Problems Problem Description Start [...] related precautions within 30 days. Decreased ADLs Progressing No Waiting on patient to slat pickler shower bars and sock aide to finish addressing goals. Patient improves upper extremity function Description: - Increase functional use of left upper extremity for activities of daily living within 30 days. - Patient will have therapeutic home program in place within <2 weeks. Decreased Upper Extremity Function Progressing No Compliant with UE HEP but not feeling up to working on it today due to pain/fatigue. Plans to transition to OP. Message sent to Dr. Gómez Interventions Intervention Associated Problem/Goal Status Variance Visit [...] demonstrates increased activities of daily living Completed Patient reports everything is aching today and just not feeling well in general. States they have not gone to get the shower handles or sock aide yet but will have by last visit this week on to address with OT. Patient is asking not to do HEP today due to pain and not feeling well. Discussed/reviewed orally. Continues to do well with basic self care and getting assist for shower for now as needed. Upper Extremity Description: - Instruct in range of motion exercises and flexibility. - Instruct in therapeutic strengthening program. - Instruct in home program. - Patient and caregiver education. Problem:Decreased Upper Extremity Function Goal:Patient improves upper extremity function Completed Reviewed HEP orally; patient asking not to perform today due to pain/fatigue. documented in this encounter Care Teams Clinical Nutritionist Relationship Specialty Start Date End Date Joseph Manzanares MD [address] [place] [phone] PCP - General Internal Medicine 10/07/22 04/20/23 Adriana Adams DO [address] [place] [phone] Resident - PCP Internal Medicine 04/06/22 01/12/23 documented as of this encounter
--- OUTSIDE RECORDS SUMMARY | 2024-07-23 07:10 | XMS_ITS | Encounter Summary ---
Author Organization [facility] Health Address [address] [facility] [place] [address] Care Team Providers Care Gate Guard Name Role Phone Joseph Manzanares MD Primary Care Provider [phone] Tiana Naylor DO Unavailable [phone] Reason for Referral * Evaluate (Routine) - Closed Specialty Diagnoses / Procedures Referred By Contac t Referred To Contact ENT-Otolaryngology Diagnoses S/P cervical spinal fusion Coy Gómez MD [address] [place] [address] [address] [place] [address] [facility] [address] [address] Referral ID Status Reason Start Date Expiration Date V isits Requested Visits Authorized [id number] Closed Specialty Services Required 01/20/2023 01/20/2024 1 1 Reason for Visit * Reason Comments Post-Op Neck surgery Encounter Details Date Type Department Care Team (Late st Contact Info) Description 01/20/2023 11:15 AM CDT Office Visit [facility] - Neurosurgery [address] [place] [phone] Coy Gómez MD [address] [place] [address] [address] [place] [address] S/P cervical spinal fusion (Primary Dx) Social History Tobacco Use Types [...] Date Recorded PHQ2 TOTAL SCORE 1 11/25/2022 [facility] [place] of Occupat ional Health - Occupational Stress [...] Sign Reading Time Taken Comments Blood Pressure 120/61 01/20/2023 12:00 PM CDT Pulse 105 01/20/2023 12:00 PM CDT Temperature 36.3 ??C (97.3 ??F) 01/20/2023 12:00 PM C DT Respiratory Rate - - Oxygen Saturation 96% 01/20/2023 12:00 PM CDT Inhaled Oxygen Concentration - - Weight 61.2 kg (135 lb) 01/20/2023 12:00 PM CDT Height 157.5 cm (5' 2) 01/20/2023 12:00 PM CDT Body Mass Index 24.69 01/20/2023 12:00 PM CDT documented in this encounter Functional [...] this encounter Patient Instructions * Patient Instructions* Anaya Bach APRN-CNP - 01/20/2023 12:14 PM CDT Follow up with Dr Gómez after next MRI Follow up with ENT for difficulty swallowing - the department will call you with appointment information For any questions please call Heather [phone] documented in this encounter Progress Notes * Anaya Bach APRN-CNP - 01/20/2023 11:15 AM CDT NEUROSURGERY CLINIC NOTE Chief Complaint (CC): follow up HISTORY OF PRESENT ILLNESS (HPI): Brisa Hogan is a 62 year old female with??metastatic??high risk papillary thyroid cancer??([id number] - IVb) s/p??salvage total thyroidectomy and neck dissection??on??02/05/2022??with right neck residual/recurrent disease??and metastases to the spine??s/p revision right central neck dissection. She underwent C2-T2 fusion and decompression C3-C7 and resection extramedullary spine tumor in October of [address] Gómez. Seen for post op follow up on 11/19/22 she endorsed persistent left arm numbness and weakness which continues despite physical therapy Patient denied any radicular pain, changes in bowel/bladder function, or new weakness. She is following closely with heme oncology and radiation oncology. Seeing pain management for left hip pain, relieved with injections from pain management Biggest complaint is persistent difficulty swallowing since surgery Last MRI with expected post op changes Past Medical History: Diagnosis Date ??? Anxiety [...] DIRECT LARYNGOSCOPY WITH BIOPSY ??? Polypectomy cervical Current Outpatient Medications Medication ??? acetaminophen (TYLENOL) 500 MG tablet ??? atorvastatin (Lipitor) 40 MG tablet ??? buPROPion SR 12hr (Wellbutrin-SR) 100 MG tablet ??? calcitriol (Rocaltrol) 0.5 MCG capsule ??? SJUVUNH-DDJOZMIVI-ILKZ PO ??? celecoxib (CeleBREX) 200 MG capsule ??? cetirizine (ZYRTEC) 10 MG tablet ??? clonazePAM (KLONOPIN) 0.5 MG tablet ??? cyclobenzaprine (Flexeril) 5 MG tablet ??? famotidine (PEPCID) 20 MG tablet ??? fish oil/omega-3 fatty acids (PROMEGA;CARDI-OMEGA 3) 1000 MG capsule ??? fluticasone propionate (Flonase) 50 MCG/ACT nasal spray ??? gabapentin (Neurontin) 300 MG capsule ??? EHWABB-RJZAVPLOS-ZGO-C-HYAL PO ??? levothyroxine (Synthroid) 112 MCG tablet ??? Misc Natural Products (NEURIVA PO) ??? oxybutynin CR 24hr (Ditropan-XL) 5 MG tablet ??? pantoprazole EC (Protonix) 40 MG tablet ??? PARoxetine (PAXIL) 40 MG tablet ??? traZODone (DESYREL) 50 MG tablet ??? vitamin E (TOCOPHERYL) 200 UNIT capsule No current facility-administered medications for this visit. Allergies Allergen Reactions ??? Kiwi Extract Anaphylaxis Social History Tobacco Use ??? Smoking status: Some Days Packs/day: 0.25 Years: 40.00 Pack years: 10.00 Types: Cigarettes Start date: 07/22/1973 ??? Smokeless tobacco: Current ??? Tobacco comments: 1-2 cigarettes per day current smoker Vaping Use ??? Vaping Use: Never used Substance Use Topics ??? Alcohol use: No Family History Problem Relation Name Age of [...] Status: Alive ??? Thyroid Disease Neg Hx REVIEW OF SYSTEMS Constitutional: Negative Eyes: Negative Ears, nose, mouth, throat, and face: Negative Respiratory: Negative Cardiovascular: Negative Gastrointestinal: Negative Genitourinary:negative Hematologic/lymphatic: Negative Musculoskeletal: left hip pain Neurological: LUE weakness Behavioral/Psych: Negative Endocrine: Negative PHYSICAL EXAM BP 120/61 Pulse 105 Temp 97.3 ??F (36.3 ??C) (Temporal) Ht 1.575 m (5' 2) Wt 61.2 kg (135 lb) SpO2 96% General: no acute distress Cardiovascular: warm, well perfused Respiratory: non-labored breathing Abdominal: S, NT, ND Integument: no lesions found Vascular: capillary refill <3 seconds Neuro: alert, oriented x 3 (name, place date), ou=r, face symmetric, sensation intact ?? Deltoid Bicep Tricep Securities Analyst Wrist Ext Finger ext Hip Flexor Quad Hamstring Tib Ant Gastroc EHL Right 5 5 5 5 5 5 5 5 5 5 5 5 Left 0 1 0 5 5 5 4 5 5 5 5 5 RADIOLOGY PROCEDURE: MRI CERVICAL SPINE WWO CONT, DATE/TIME OF EXAM: 12/24/2022 11:32 AM, LOCATION [facility] ?? 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 ADDITIONAL CLINICAL INFORMATION: Ordering Provider Reason For Exam: Eval for recurrence and growth of spine lesion ?? CONTRAST: GADOBUTROL 1 MMOL/ML IV SSM SO:6 mL ?? EXAMINATION: Magnetic resonance imaging (MRI) of the cervical spine without and with contrast ?? TECHNIQUE: MRI of the cervical spine was performed prior to and following the uneventful administration of 6 mL intravenous GADAVIST contrast according to standard protocol. ?? COMPARISON: MRI of the cervical spine from 08/21/2022 ?? FINDINGS: Since prior MRI of the cervical spine from 08/21/2022, there has been interval postoperative findings of C3-C7 decompressive laminectomy for resection of the extramedullary spinal tumor seen on the prior with C2-T2 posterior instrumented fusion, with postsurgical changes in the paraspinal soft tissues of diffuse fat stranding and disruption of the posterior paraspinal soft tissues related to the surgery. Blooming artifacts from the hardware limits local evaluation. ?? There is a thin/small linear, peripherally enhancing fluid collection in the deep subcutaneous soft tissues at the midline measuring approximately 0.9 x 0.4 x 2.3 cm in the maximal transaxial and craniocaudal dimensions, (series 5, image 20, and series 4, image 11), which extend deep to the level just posterior to the thecal sac with an irregular fluid collection that is difficult to measure due to its triangular shape but measures approximately 1.4 cm AP by 2.1 cm TV by 2.1 cm cc along its inner aspect, (series 5, image 18, and series 4, image 11), likely representing representing small volume postoperative fluid or seroma however, superimposed infection cannot be excluded in the appropriate clinical setting. There is peripheral enhancement surrounding the above-mentioned thin subcutaneous soft tissue collection as well as extensive, diffuse soft tissue swelling in the posterior paraspinous soft tissues of the neck at the laminectomy site. Findings are nonspecific and likely reactive. There is diffuse enhancement along the posterior dura along the laminectomy bed. ?? Residual enhancing soft tissues is again noted in the left C5-C6 neural foramen, extending to the extra foraminal compartment, measuring approximately 2.4 x 1.2 cm in the maximal transaxial dimensions, (series 10, image 23), as well as in the left C6-C7 neural foramen measuring approximately 1.4 x 1.4 cm, (series 10, image 27). Persistent encasement of the left vertebral artery is again noted, (series 5, image 23). Minimal soft tissue enhancement is also noted in the C4-C5 neural foramen measuring approximately 0.9 x 0.7 cm, (series 10, image 20). Previously seen the ventral epidural enhancement is not seen on the current study. There has been interval resection of the tumor abutting the cord which was seen on the prior. There is no cord compression on the current study. ?? Mild anterolisthesis of C4 on C5. Mild anterolisthesis of C6 on C7 and trace anterolisthesis of C7 on T1. The alignment is otherwise maintained. Vertebral bodies are normal in height without evidence of compression fractures. Redemonstration of abnormal STIR signal involving the posterior aspect of C5 and C6. Lytic and sclerotic lesion seen on the prior CT from 01/28/2022 [place] signal intensity of the remaining cervical spine appears unremarkable and grossly stable. The craniocervical junction and visualized portions of the posterior fossa appear normal. The spinal cord appears otherwise grossly stable. There is mild disc height loss at multiple levels. Normal flow voids are identified in the vertebral arteries. ?? C2-3: There is no disc bulge. There is no central canal stenosis. There is no facet osteoarthritis. There is no uncovertebral joint osteoarthritis. There is no neural foraminal stenosis. ?? C3-4: There is minimal disc bulge. There is no central canal stenosis. There is no facet osteoarthritis. There is no uncovertebral joint osteoarthritis. There is no neural foraminal stenosis. ?? C4-5: There is mild disc bulge. There is no central canal stenosis. There is mild to moderate facet osteoarthritis. There is moderate uncovertebral joint osteoarthritis. There is severe right and moderate left neural foraminal stenosis. Soft tissue enhancement in the left neural foramen as mentioned above. ?? C5-6: There is mild disc bulge. There is no central canal stenosis. There is mild facet osteoarthritis. There is mild uncovertebral joint osteoarthritis. There is mild right and severe left neural foraminal stenosis. Soft tissue enhancement in the left neural foramen as mentioned above. ?? C6-7: There is diffuse disc bulge with a superimposed small central disc protrusion. There is no central canal stenosis. There is mild facet osteoarthritis. There is mild uncovertebral joint osteoarthritis. There is moderate right and severe left neural foraminal stenosis. Soft tissue enhancement in the left neural foramen as outlined above. ?? C7-T1: There is no disc bulge. There is no central canal stenosis. There is mild facet osteoarthritis. There is mild uncovertebral joint osteoarthritis. There is up to moderate bilateral neural foraminal stenosis. ? IMPRESSION: ?? Since prior MRI of the cervical spine from 08/21/2022: 1.There has been interval postoperative findings of C3-C7 decompressive laminectomy for partial resection of the extramedullary spinal tumor, and C2-T2 posterior instrumented fusion, with postsurgical changes as outlined above. Diffuse soft tissue enhancement in the laminectomy bed with a small volume fluid collection with peripheral enhancement which could represent postoperative fluid collection, or seroma, however, superimposed infection cannot be excluded in the appropriate clinical setting. Clinical correlation is recommended. 2.There has been interval satisfactory decompression of the spinal canal with residual tumor in the left C4-C5, C5-C6, and C6-C7 neural foramina, as outlined above. Continued attention on follow-up is recommended. ?? Assessment: Brisa Hogan is a 62 year old female s/p C2-T2 fusion and decompression C3- C7 and resection extramedullary spine tumor in October of [address] Gómez. Plan: - Follow up with Dr Gómez in 3 months after next MRI - Follow up with ENT for persistent dysphagia - Continue physical therapy CODY Hernandez 01/20/2023 11:58 AM documented in this encounter Plan of Treatment Upcoming Encounters Date Type Department Care Team (Late st Contact Info) Description 07/25/2024 10:00 AM MINE SAFETY DIRECTOR Office Visit [facility] - Endocrinology [address] [place] [address], [place] [address] Yosi Bustamante MD [address] [place] [address] [place] [address] 07/26/2024 10:00 AM MINE SAFETY DIRECTOR Appointment [facility] [address] [place] [address] Neri Delgado MD [address] [place] [address] 07/26/2024 10:00 AM MINE SAFETY DIRECTOR Office Visit [facility] - ENT [address] [place] [phone] Myra Farmer, CATH LAB [address] [place] [address] [place] [phone] 07/26/2024 11:15 AM MINE SAFETY DIRECTOR Office Visit [facility] - ENT [address] [place] [phone] Neri Delgado MD [address] [place] [address] 08/02/2024 2:20 PM MINE SAFETY DIRECTOR Appointment [facility] [address] [place] [address] 08/02/2024 3:00 PM MINE SAFETY DIRECTOR Office Visit [facility] - Hematology/Oncology [address] [place] [phone] Remi Beckett MD [address] [place] [phone] 08/18/2024 1:45 PM MINE SAFETY DIRECTOR Office Visit [facility] - ENT [address] [place] [phone] Neri Delgado MD [address] [place] [address] Scheduled Referrals Name Type Priority Associated Diagnoses Order Schedule Ref to ENT [facility]ol[facility]ology - [facility] Outpatient Referral Routine S/P cervical spinal fusion 1 Occurrences starting 01/20/2023 until 01/21/2024 documented as of this encounter Visit Diagnoses Diagnosis S/P cervical spinal fusion- Primary Arthrodesis status documented in this encounter Care Teams Gate Guard Relationship Specialty Start Date End Date Joseph Manzanares MD [address] [place] [address] PCP - General Internal Medicine 10/07/22 04/20/23 Tiana Naylor DO [address] [place] [address] Resident - PCP Internal Medicine 01/13/23 04/20/23 documented as of this encounter
--- OUTSIDE RECORDS SUMMARY | 2024-07-23 07:10 | XMS_ITS | Encounter Summary ---
Author Organization [facility] Health Address [address] [facility] [place] [address] Care Team Providers Care Spa Director/Finance Name Role Phone Joseph Manzanares MD Primary Care Provider [phone] Tiana Naylor DO Unavailable [phone] Reason for Visit * Reason Comments Refill Request Encounter Details Date Type Department Care Team (Late st Contact Info) Description 02/21/2023 Refill [facility] - Internal Med [address] [place] [address], [place] [phone] Andria Anaya DO [address] [place] [address] OF [facility] [place] [address] Refill Request Social History Tobacco Use Types [...] Date Recorded PHQ2 TOTAL SCORE 1 11/25/2022 [facility] [place] of Occupat ional Health - Occupational Stress [...] Telephone Encounter - Sita Cotter RN - 02/22/2023 11:05 AM CDT MEDICATION FILLED PER PROTOCOL Disposition of prescription: e-prescribed to preferred pharmacy Response to patient: None necessary documented in this encounter Plan of Treatment Upcoming Encounters Date Type Department Care Team (Late st Contact Info) Description 07/25/2024 10:00 AM BREWERY TECHNICIAN Office Visit [facility] - Endocrinology [address] [place] [phone] Yosi Bustamante MD [address] [place] [address] 2[address] [place] [address] 07/26/2024 10:00 AM BREWERY TECHNICIAN Appointment [facility] [address] [place] [address] Neri Delgado MD [address] [place] [address] 07/26/2024 10:00 AM BREWERY TECHNICIAN Office Visit [facility] - ENT [address] [place] [phone] Myra Farmer, GALVANIZER [address] [place] [address] [address] [place] [address] 07/26/2024 11:15 AM BREWERY TECHNICIAN Office Visit [facility] - ENT [address] [place] [phone] Neri Delgado MD [address] [place] [address] 08/02/2024 2:20 PM BREWERY TECHNICIAN Appointment [facility] [address] [place] [address] 08/02/2024 3:00 PM BREWERY TECHNICIAN Office Visit [facility] - Hematology/Oncology [address] [place] [phone] Remi Beckett MD [address] [place] [phone] 08/18/2024 1:45 PM BREWERY TECHNICIAN Office Visit [facility] - ENT [address] [place] [phone] Neri Delgado MD [address] [place] [address] documented as of this encounter Visit Diagnoses Diagnosis Allergic rhinitis, unspecified seasonality, unspecified trigger documented in this encounter Care Teams Spa Director/Finance Relationship Specialty Start Date End Date Joseph Manzanares MD [address] [place] [phone] PCP - General Internal Medicine 10/07/22 04/20/23 Tiana Naylor DO [address] [facility] [place] [address] Resident - PCP Internal Medicine 01/13/23 04/20/23 documented as of this encounter
--- OUTSIDE RECORDS SUMMARY | 2024-07-23 07:10 | XMS_ITS | Encounter Summary ---
Author Organization [facility] Health Address [address] [place] [address] Care Team Providers Care Managing Broker Name Role Phone Adriana Adams DO Unavailable Joseph Manzanares MD Primary Care Provider [phone] Encounter Details Date Type Department Care Team (Latest Contact Info) Description 12/10/2022 Travel Social History Tobacco Use Types Packs/Day [...] suspected to have Coronavirus/COVID-19? No / Unsure 12/10/2022 3:05 PM CDT documented as of this encounter [...] st Contact Info) Description 07/25/2024 10:00 AM GROUNDS PERSON Office Visit [facility] - Endocrinology [address] [place] [phone] Yosi Bustamante MD [address] [place] [address] 2[address] [place] [address] 07/26/2024 10:00 AM GROUNDS PERSON Appointment [facility] [address] [place] [address] Neri Delgado MD [address] [place] [address] 07/26/2024 10:00 AM GROUNDS PERSON Office Visit [facility] - ENT [address] [place] [phone] Myra Farmer, SKILLS AUDITOR [address] [place] [address] [address] [place] [phone] 07/26/2024 11:15 AM GROUNDS PERSON Office Visit [facility] - ENT [address] [place] [phone] Neri Delgado MD [address] [place] [address] 08/02/2024 2:20 PM GROUNDS PERSON Appointment [facility] [address] [place] [address] 08/02/2024 3:00 PM GROUNDS PERSON Office Visit [facility] - Hematology/Oncology [address] [place] [phone] Remi Beckett MD [address] [place] [address] 08/18/2024 1:45 PM GROUNDS PERSON Office Visit [facility] - ENT [address] [place] [phone] Neri Delgado MD [address] [place] [address] documented as of this encounter Visit Diagnoses Not on filedocumented in this encounter Care Teams Managing Broker Relationship Specialty Start Date End Date Joseph Manzanares MD [address] [place] [address] PCP - General Internal Medicine 10/07/22 04/20/23 Adriana Adams DO [address] [place] [address] Resident - PCP Internal Medicine 04/06/22 01/12/23 documented as of this encounter
--- OUTSIDE RECORDS SUMMARY | 2024-07-23 07:10 | XMS_ITS | Encounter Summary ---
Author Organization [facility] Address [address] [place] [address] Care Team Providers Care Brusher Warp Name Role Phone Adriana [place] DO Unavailable Joseph Manzanares MD Primary Care Provider [phone] Reason for Visit * Auth/Cert (Routine) Specialty Diagnoses / Procedures Referred By Contricardo t Referred To Contact Referral ID Status Reason Start Date Expiration Date Visits Re quested Visits Authorized [id number] 1 1 Encounter Details Date Type Department Care Team (Late st Contact Info) Description 10/29/2022 8:00 AM CDT Home Care Visit [facility] at Home Home Health [address] [place] [phone] Kendra Smyth OT OT HOME VISIT Social [...] Date Recorded PHQ2 TOTAL SCORE 0 09/02/2022 [facility] of Occupat ional Health - Occupational Stress [...] suspected to have Coronavirus/COVID-19? No / Unsure 10/27/2022 8:31 AM CDT documented as of this encounter Last Filed Vital Signs Vital Sign Reading Time Taken Comments Blood Pressure 128/80 10/29/2022 12:03 PM CDT Pulse 90 10/29/2022 12:03 PM CDT Temperature 36.3 ??C (97.4 ??F) 10/29/2022 12:03 PM C DT Respiratory Rate - - Oxygen Saturation 95% 10/29/2022 12:03 PM CDT Inhaled Oxygen Concentration - - [...] Contact Info) Description 07/25/2024 10:00 AM RN TELEHEALTH Office Visit [facility] - Endocrinology [address] [place] [phone] Yosi Bustamante MD [address] [place] [address] 2L [place] [address] 07/26/2024 10:00 AM RN TELEHEALTH Appointment [facility] [address] [place] [address] Neri Delgado MD [address] [place] [address] 07/26/2024 10:00 AM RN TELEHEALTH Office Visit [facility] - ENT [address] [place] [phone] Myra Farmer, RUFFLER [address] [place] [address] 2L [place] [phone] 07/26/2024 11:15 AM RN TELEHEALTH Office Visit [facility] - ENT [address] [place] [phone] Neri Delgado MD [address] [place] [address] 08/02/2024 2:20 PM RN TELEHEALTH Appointment [facility] [address] [place] [address] 08/02/2024 3:00 PM RN TELEHEALTH Office Visit [facility] - Hematology/Oncology [address] [place] [phone] Remi Beckett MD [address] [place] [phone] 08/18/2024 1:45 PM RN TELEHEALTH Office Visit [facility] - ENT [address] [place] [phone] Neri Delgado MD [address] [place] [address] documented as of this encounter Visit Diagnoses Not on filedocumented in this encounter Home Health Visit - Care Plan Visit Details Visit Type -OT Home Visit Discipline -Occupational Therapy Problems Problem Description Start Date Status Goals Interve ntions X Additional Home Health Orders Disciplines: All Disciplines (HH/Hospice) 10/14/2022 Active 1 goal linked to scheduled/docume nted intervention 1 goal intervention scheduled/documen june in this visit Decreased ADLs Disciplines: OT (HH/Hospice) Decreased independence in self-care including bathing, toileting and dressing upper body. 10/14/2022 Active 1 goal linked to scheduled/docume nted intervention 1 goal intervention scheduled/documen june in this visit Decreased Upper Extremity Function Disciplines: OT (HH/Hospice) Decreased upper extremity function in Left upper extremity. 10/14/2022 Active 1 goal linked to scheduled/docume nted intervention 1 goal intervention scheduled/documen june in this visit Goals Goal Associated Problem Outcome Goal Met? Visit Notes Additional Home Health Orders X Additional Home Health Orders Progressing No vitals WDL Patient demonstrates increased activities of daily living [...] within 30 days. Decreased ADLs Progressing No Patient improves upper extremity function Description: - Increase functional use of left upper extremity for activities of daily living within 30 days. - Patient will have therapeutic home program in place within <2 weeks. Decreased Upper Extremity Function Progressing No Interventions Intervention Associated Problem/Goal Status [...] Health Orders Goal:Additional Home Health Orders Completed ADLs Interventions Description: - Instruct in self-care including bathing, toileting, dressing upper body and dressing lower body. - Instruct in use of adaptive equipment and environmental adaptations. - Activities of daily living mobility training with walker. - Assess and make recommendations for increased safety. - Patient and Caregiver education. Problem:Decreased ADLs Goal:Patient demonstrates increased activities of daily living Completed Completed education/review of grab bar placement in shower; practcied transfer with stool with min A/CGA using cane to step in/out Educated on propping L arm on shower door handle for access to wash under arm and trunk on L side; discussed use and recommendation of LH sponge for using in L hand to wash R side of body in sitting. Patient agreed to pursue Sock aide is now in and patient to pick pulling machine tender tomorrow. Will f/u next session. Upper Extremity Description: - Instruct in range of motion exercises and flexibility. - Instruct in therapeutic strengthening program. - Instruct in home program. - Patient and caregiver education. Problem:Decreased Upper Extremity Function Goal:Patient improves upper extremity function Completed Completed supine and tabletop HEP following handouts. Education and focus positioning for bicep recruitment/maximizin g strengthening. Patient reported pain after last session but tolerated well today. Good motivation noted. documented in this encounter Care Teams Brusher Warp Relationship Specialty Start Date End Date Joseph Manzanares MD [address] [place] [phone] PCP - General Internal Medicine 10/07/22 04/20/23 Adriana [place] DO [address] [place] [address] Resident - PCP Internal Medicine 04/06/22 01/12/23 documented as of this encounter
--- OUTSIDE RECORDS SUMMARY | 2024-07-23 07:10 | XMS_ITS | Encounter Summary ---
Author Organization [facility] Address [address] [place] [address] Care Team Providers Care Strategic Partnership Specialist Name Role Phone Adriana [place] DO Unavailable Joseph Manzanares MD Primary Care Provider [phone] Reason for Visit * Auth/Cert (Routine) Specialty Diagnoses / Procedures Referred By Contricardo t Referred To Contact Referral ID Status Reason Start Date Expiration Date Visits Re quested Visits Authorized [id number] 1 1 Encounter Details Date Type Department Care Team (Late st Contact Info) Description 10/27/2022 8:00 AM CDT Home Care Visit [facility] at Home Home Health [address] [place] [phone] Kendra Smyth OT OT HOME VISIT Social [...] Date Recorded PHQ2 TOTAL SCORE 0 09/02/2022 [facility] [place] of Occupat ional Health - Occupational Stress [...] Sign Reading Time Taken Comments Blood Pressure 122/68 10/27/2022 2:21 PM CDT Pulse 88 10/27/2022 2:21 PM CDT Temperature 36.3 ??C (97.4 ??F) 10/27/2022 2:21 PM CD T Respiratory Rate - - Oxygen Saturation 97% 10/27/2022 2:21 PM CDT Inhaled Oxygen Concentration - - [...] Contact Info) Description 07/25/2024 10:00 AM DINING ROOM SUPERVISOR Office Visit [facility] - Endocrinology [address] [place] [phone] Yosi Bustamante MD [address] [place] [address] 2L [place] [address] 07/26/2024 10:00 AM DINING ROOM SUPERVISOR Appointment [facility] [address] [place] [address] Neri Delgado MD [address] [place] [address] 07/26/2024 10:00 AM DINING ROOM SUPERVISOR Office Visit [facility] - ENT [address] [place] [phone] Myra Farmer, CHILDCARE CENTER DIRECTOR [address] [place] [address] 2L [place] [phone] 07/26/2024 11:15 AM DINING ROOM SUPERVISOR Office Visit [facility] ENT [address] [place] [phone] Neri Delgado MD [address] [place] [address] 08/02/2024 2:20 PM DINING ROOM SUPERVISOR Appointment [facility] [address] [place] [address] 08/02/2024 3:00 PM DINING ROOM SUPERVISOR Office Visit [facility] - Hematology/Oncology [address] [place] [phone] Remi Beckett MD [address] [place] [phone] 08/18/2024 1:45 PM DINING ROOM SUPERVISOR Office Visit [facility] - ENT [address] [place] [phone] Neri Delgado MD [address] [place] [address] documented as of this encounter Visit Diagnoses [...] Additional Home Health Orders Progressing No Patient demonstrates increased activities of daily living [...] activities of daily living Completed Patient reports she has ordered the sock aide and grab bars from [facility]. Waiting for sock aid to be delivered. Still using BSC successfully as well. Using walker well around the home. Still getting assist from sister for showering Upper Extremity Description: - Instruct in range of motion exercises and flexibility. - Instruct in therapeutic strengthening program. - Instruct in home program. - Patient and caregiver education. Problem:Decreased Upper Extremity Function Goal:Patient improves upper extremity function Completed Completed UE HEP at tabletop following handouts with min cues. Supine L UE ther ex folowing handouts then added 3 additional exercises: -isometric circles on ceiling -gravity assist elbow flexion/ext overhead in supine -eccentric lowering with cues -side push ups for increased weightbearing/streng thening documented in this encounter Care Teams Strategic Partnership Specialist Relationship Specialty Start Date End Date Joseph Manzanares MD [address] [place] [phone] PCP - General Internal Medicine 10/07/22 04/20/23 Adriana [place] DO [address] [place] [address] Resident - PCP Internal Medicine 04/06/22 01/12/23 documented as of this encounter
--- OUTSIDE RECORDS SUMMARY | 2024-07-23 07:10 | XMS_ITS | Encounter Summary ---
Author Organization [facility] Address [address] [place] [address] Care Team Providers Care Sponge Diver Name Role Phone Adriana [place] DO Unavailable Joseph Manzanares MD Primary Care Provider [phone] Encounter Details Date Type Department Care Team (Latest Contact Info) Description 11/25/2022 Travel Social History Tobacco Use Types Packs/Day [...] suspected to have Coronavirus/COVID-19? No / Unsure 11/25/2022 4:57 PM CDT documented as of this encounter [...] st Contact Info) Description 07/25/2024 10:00 AM STAFF TECHNOLOGIST Office Visit [facility] - Endocrinology [address] [place] [phone] Yosi Bustamante MD [address] [place] [address] 2L [place] [address] 07/26/2024 10:00 AM STAFF TECHNOLOGIST Appointment [facility] RAD [address] [place] [address] Neri Delgado MD [address] [place] [address] 07/26/2024 10:00 AM STAFF TECHNOLOGIST Office Visit [facility] - ENT [address] [place] [phone] Myra Farmer, NETWORK OPERATIONS TECHNICIAN [address] [place] [address] 2L [place] [phone] 07/26/2024 11:15 AM STAFF TECHNOLOGIST Office Visit [facility] - ENT [address] [place] [phone] Neri Delgado MD [address] [place] [address] 08/02/2024 2:20 PM STAFF TECHNOLOGIST Appointment [facility] [address] [place] [address] 08/02/2024 3:00 PM STAFF TECHNOLOGIST Office Visit [facility] - Hematology/Oncology [address] [place] [phone] Remi Beckett MD [address] [place] [address] 08/18/2024 1:45 PM STAFF TECHNOLOGIST Office Visit [facility] - ENT [address] [place] [phone] Neri Delgado MD [address] [place] [address] documented as of this encounter Visit Diagnoses Not on filedocumented in this encounter Care Teams Sponge Diver Relationship Specialty Start Date End Date Joseph Manzanares MD [address] [place] [address] PCP - General Internal Medicine 10/07/22 04/20/23 Adriana [place] DO [address] [place] [address] Resident - PCP Internal Medicine 04/06/22 01/12/23 documented as of this encounter
--- OUTSIDE RECORDS SUMMARY | 2024-07-23 07:10 | XMS_ITS | Encounter Summary ---
Author Organization [facility] Address [address] [place] [address] Care Team Providers Care Paediatric Thoracic Physician Name Role Phone Adriana [place] DO Unavailable Joseph Manzanares MD Primary Care Provider [phone] Reason for Visit * Auth/Cert (Routine) Specialty Diagnoses / Procedures Referred By Contac t Referred To Contact Referral ID Status Reason Start Date Expiration Date Visits Re quested Visits Authorized [id number] 1 1 Encounter Details Date Type Department Care Team (Late st Contact Info) Description 10/27/2022 9:35 AM CDT Home Care Visit [facility] at Home Home Health [address] [place] [phone] Mary Beth Sun, PT PT HOME VISIT [...] Date Recorded PHQ2 TOTAL SCORE 0 09/02/2022 [facility] of Occupat ional Health - Occupational Stress [...] Time Taken Comments Blood Pressure 122/68 10/27/2022 10:32 AM CDT Pulse 88 10/27/2022 10:32 AM CDT Temperature 36.3 ??C (97.4 ??F) 10/27/2022 10:32 AM C DT Respiratory Rate 18 10/27/2022 10:32 AM CDT Oxygen Saturation 97% 10/27/2022 10:32 AM CDT Inhaled Oxygen Concentration - - [...] Health - Mary Beth Sun, PT - 10/27/2022 10:17 AM CDT Present Condition/Subjective Findings/Living situation: Patient sitting in recliner chair upon PT arrival. Patient in agreement for treatment. Patient's is present this date. Patient states she has been more sore and tired the last few days. Patient/caregiver response to treatment: Patient demonstrates good understanding of HEP. Patient demonstrates increasing safety and independence with functional transfers and gait in home with rollator walker. Activity continues to be limited by chronic pain but patient is motivated to do as much as she can each session. Patient is meeting home care PT goals and is in agreement for PT discipline discharge next visit. Plan for next visit: PT Discipline Discharge documented in this encounter Plan of Treatment Upcoming Encounters Date Type Department Care Team (Late st Contact Info) Description 07/25/2024 10:00 AM MINUTE CLERK Office Visit [facility] - Endocrinology [address] [place] [address], [place] [phone] Yosi Bustamante MD [address] [place] [address] [place] [address] 07/26/2024 10:00 AM MINUTE CLERK Appointment [facility] DIAGNO[facility]IC RAD [address] [place] [address] Neri Delgado MD [address] [place] [address] 07/26/2024 10:00 AM MINUTE CLERK Office Visit [facility] - ENT [address] [place] [phone] Myra Farmer, DOG BREEDER [address] [place] [address] [place] [phone] 07/26/2024 11:15 AM MINUTE CLERK Office Visit [facility] - ENT [address] [place] [phone] Neri Delgado MD [address] [place] [address] 08/02/2024 2:20 PM MINUTE CLERK Appointment [facility] [address] [place] [address] 08/02/2024 3:00 PM MINUTE CLERK Office Visit [facility] - Hematology/Oncology [address] [place] [phone] Remi Beckett MD [address] [place] [phone] 08/18/2024 1:45 PM MINUTE CLERK Office Visit [facility] - ENT [address] [place] [phone] Neri Delgado MD [address] [place] [address] documented as of this encounter Visit Diagnoses [...] june in this visit Pain Disciplines: PT (/Hospice) Acute pain of grade 6 on a scale of 0-10. 10/14/2022 Active 1 goal linked to scheduled/docume nted intervention 1 goal intervention scheduled/documen june in this visit Decreased Bed Mobility Disciplines: PT (/[facility]) Decreased bed mobility. 10/14/2022 Resolved on 10/27/2022 1 goal linked to scheduled/docume nted intervention 1 goal intervention scheduled/documen june in this visit Gait Deficit Disciplines: PT (/[facility]) - Decreased ambulation requiring minimum level of assist. - Decreased quality of gait with gait deviations and/or impaired postural alignment. 10/14/2022 Active 1 goal linked to scheduled/docume nted intervention 1 goal intervention scheduled/documen june in this visit Transfer Deficit Disciplines: PT ([facility]) - Decreased transfer ability requiring minimum level of assist related to LE weakness. - Requires caregiver instruction. 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 10/14/2022 Active 1 goal linked to scheduled/docume nted intervention 1 goal intervention scheduled/documen june in this visit Surgical Wound Disciplines: PT ([facility]) Neck incision-posteri or 10/14/2022 Active 1 goal linked to scheduled/docume [...] assist within 30 days. Decreased Bed Mobility Completed Yes Patient improves ambulation and quality of gait [...] improves bed mobility Completed Supine to/from sit, independent but effortful. Gait Deficit Description: Gait training. Problem:Gait Deficit Goal:Patient improves ambulation and quality of gait Completed Ambulates 100 feet x 2 in home with rollator walker, SBA/Independent. Slow kary, antalgic. Decreased left LE weight bearing with toe walking noted due to severe OA in left hip. Effortful. Decreased Strength Description: - Therapeutic exercise. - Upgrade home exercise program. Problem:Decreased Strength Goal:Patient increases strength and/or functional mobility Completed Completed this visit: Therapeutic exercise Functional transfers: sit to/from stand: SBA/Independent, effortful from lower surfaces. toilet: SBA/Independent, effortful. shower: NT. Defer to OT. Home Exercise [...] Problem:Surgical Wound Completed Incision open to air. Jenkins removed at MD appointment on 10/21. No s/s infection. Written wound care instructions in home. documented in this encounter Care Teams Paediatric Thoracic Physician Relationship Specialty Start Date End Date Joseph Manzanares MD [address] [place] [phone] PCP - General Internal Medicine 10/07/22 04/20/23 Adriana [place] DO [address] [place] [phone] Resident - PCP Internal Medicine 04/06/22 01/12/23 documented as of this encounter
--- OUTSIDE RECORDS SUMMARY | 2024-07-23 07:10 | XMS_ITS | Encounter Summary ---
Author Organization [facility] Address [address] [place] [address] Care Team Providers Care Elementary Assistant Principal Name Role Phone Joseph Manzanares MD Primary Care Provider [phone] Tiana Naylor DO Unavailable [phone] Encounter Details Date Type Department Care Team (Latest Contact Info) Description 01/14/2023 Travel Social History Tobacco Use Types Packs/Day [...] Date Recorded PHQ2 TOTAL SCORE 1 11/25/2022 [facility] of Occupat ional Health - [...] st Contact Info) Description 07/25/2024 10:00 AM LADLE BUILDER [facility] [address] [place] [phone] Yosi Bustamante MD [address] [place] [address] 2L [place] [address] 07/26/2024 10:00 AM LADLE BUILDER Appointment [facility] RAD [address] [place] [address] Neri Delgado MD [address] [place] [address] 07/26/2024 10:00 AM LADLE BUILDER [facility] E[facility] [address] [place] [phone] Myra Farmer, CISCO ENGINEER [address] [place] [address] 2L [place] [address] 07/26/2024 11:15 AM LADLE BUILDER [facility] [address] [place] [phone] Neri Delgado MD [address] [place] [address] 08/02/2024 2:20 PM LADLE BUILDER Appointment [facility] [address] [place] [address] 08/02/2024 3:00 PM LADLE BUILDER Office Visit [facility] - Hematology/Oncology [address] [place] [phone] Remi Beckett MD [address] [place] [address] 08/18/2024 1:45 PM LADLE BUILDER Office Visit [facility] - ENT [address] [place] [phone] Neri Delgaod MD [address] [place] [address] documented as of this encounter Visit Diagnoses Not on filedocumented in this encounter Care Teams Elementary Assistant Principal Relationship Specialty Start Date End Date Joseph Manzanares MD [address] [place] [phone] PCP - General Internal Medicine 10/07/22 04/20/23 Tiana Naylor DO [address] [place] [place] [address]?? [place] [address] Resident - PCP Internal Medicine 01/13/23 04/20/23 documented as of this encounter
--- OUTSIDE RECORDS SUMMARY | 2024-07-23 07:10 | XMS_ITS | Encounter Summary ---
Author Organization [facility] Health Address [address] [facility] [place] [address] Care Team Providers Care Metal Furnace Operator Name Role Phone Joseph Manzanares MD Primary Care Provider [phone] Tiana Naylor DO Unavailable [phone] Reason for Visit * Treatment (Routine) - Closed Specialty Diagnoses / Procedures Referred By Contac t Referred To Contact Radiology / Pain Management Diagnoses Unilateral primary osteoarthritis, left hip Procedures NE DRAIN/INJECT LARGE JOINT/BURSA Gerard Gallegos MD [address] [place] [phone] [facility] Pain Management [address] [place] [address] Referral ID Status Reason Start Date Expiration Date Visits Re quested Visits Authorized [id number] Closed 12/24/2022 06/25/2023 1 1 Encounter Details Date Type Department Care Team (Latest Contact Info) Description 01/14/2023 1:03 PM CDT - 01/14/2023 11:59 PM CDT Hospital Encounter [facility] Health Pain Care [address] [id number] Gerard Gallegos MD [address] [place] [phone] Discharge Disposition: Home or Self Care Social [...] Date Recorded PHQ2 TOTAL SCORE 1 11/25/2022 [facility] - [...] Sign Reading Time Taken Comments Blood Pressure 122/71 01/14/2023 1:53 PM CDT Pulse 88 01/14/2023 1:53 PM CDT Temperature 36.7 ??C (98 ??F) 01/14/2023 1:53 PM CDT Respiratory Rate 17 01/14/2023 1:53 PM CDT Oxygen Saturation - - Inhaled Oxygen Concentration - - Weight 62.1 kg (137 lb) 01/14/2023 1:53 PM CDT Height 160 cm (5' 3) 01/14/2023 1:53 PM CDT Body Mass Index 24.27 01/14/2023 1:53 PM CDT documented in this encounter Functional [...] this encounter Discharge Instructions * Patient Instructions* Libia Nair RN - 01/14/2023 1:39 PM CDT PAIN MANAGEMENT CENTER DISCHARGE INSTRUCTIONS for: Brisa Hogan You had the following procedure: Left Intra articular hip joint steroid inj Special Instructions: No soaking in water for 48 hours. This includes tub baths, swimming pools or hot-tubs. Use ice pack today, 15 minutes out of every hour until bedtime as needed. In the morning use a heating pad on low or warm shower, as needed. Then use ice or heat whichever works best for you. Your pain may become worse during the next 24 to 48 hours. The injection may not take effect for 1 to 7 days with the average of about 72 hours. If you have fever, chills, severe headache, or any other problems, please call [phone] or the after hours answering service at [phone] and tell them your physician's name. The exchange willalert the physician director student union. May remove band-aid in the morning on January 15, 2023. If you are diabetic, your blood sugar can elevate for the next several days due to the steroid you received with your injection. This is normal. Contact your primary care physician for medication adjustments as needed. If you take blood thinners you may resume your dose beginning after your injection today. If you are prone to swelling, the steroid may cause this to increase for the next few days. Call your primary care physician if it is significant. You may develop a red, flushed face. This can also be caused by the steroid and is normal. It should dissipate over the next several days. Continue all of your current medications as prescribed by your physician. You will be contacted by a Pain Center staff member in the next 5 - 7 days to see how you are doing. If you received sedation: Do NOT make any important decisions such as signing any legal papers for 24 hours. Do NOT drink any alcoholic beverages, including beer for [address] a car or operate machinery or power tools for 24 hours. For Your Next Visit: Schedule 4 week OV Please do the following:arrive 15 to 30 minutes prior to your appointment time for your admission, take your medications with a sip of water at your normal times, and if you are diabetic or on blood thinners(i.e. Plavix, Coumadin) please check with your physician for special instructions . Please notify us prior to your next scheduled injection if you have had a recent fever, diagnosed infection, or generalized illness. Please note that any medication refill request requires 72 hours to process and will only be managed during normal business hours. Our office hours are Wednesday through Wednesday from 8:30am to 4:00pm. [facility] closed weekends and holidays. IF YOU FEEL YOU ARE EXPERIENCING A MEDICAL EMERGENCY, PLEASE CALL 911 OR GO TO THE NEAREST EMERGENCY ROOM. These instructions have been reviewed with me and my questions have been answered. Patient verbalized understanding with above instructions. 01/14/2023 documented in this encounter Medications at Time [...] mouth once daily 90 tablet 4 06/10/2022 PARoxetine (PAXIL) 40 MG tablet Take 1 [...] MOUTH EVERYDAY AT BEDTIME 30 tablet 3 05/14/2022 02/16/2023 calcitriol (Rocaltrol) 0.5 MCG capsuleIndications:Posto perative hypothyroidism,Thyroid cancer (HCC),Hypocalcemia TAKE 1 CAPSULE BY MOUTH TWICE A DAY 60 capsule 11 02/22/2022 05/28/2023 OGUAVNC-[id number]-URUF PO Take by mouth once daily 06/13/2023 cetirizine (ZYRTEC) 10 MG tabletIndications:Allerg ic rhinitis, unspecified seasonality, unspecified trigger Take 1 (one) tablet by mouth once daily 30 tablet 5 11/11/2021 06/13/2023 clonazePAM (KLONOPIN) 0.5 MG tablet Take 1.5 (one and one-half) tablets by mouth once daily 10/29/2021 06/14/2023 fish oil/omega-3 fatty acids (PROMEGA;CARDI-OMEGA 3) 1000 MG capsule Take 1 (one) capsule by mouth 3 times daily with meals 06/13/2023 fluticasone propionate (Flonase) 50 MCG/ACT nasal sprayIndications:Allergi c rhinitis, unspecified seasonality, unspecified trigger [place] 2 (two) sprays into each nostril once daily 48 g 11/25/2022 02/22/2023 OQYWRB-UJSKSXBMW-CCJ-C-H YAL PO Take 1 tablet by mouth 3 times daily 06/13/2023 levothyroxine (Synthroid) 112 MCG tabletIndications:Postop erative hypothyroidism TAKE 1 TABLET BY MOUTH EVERY DAY 90 tablet 4 07/06/2022 06/14/2023 Misc Natural Products (NEURIVA PO) Take 1 tablet by mouth 2 times daily 06/13/2023 pantoprazole EC (Protonix) 40 MG tabletIndications:Gastro esophageal reflux disease, unspecified whether esophagitis present TAKE ONE TABLET BY MOUTH ONCE DAILY FOR STOMACH 90 tablet 01/13/2023 02/03/2023 vitamin E (TOCOPHERYL) 200 UNIT capsule Take 1 (one) capsule by mouth 3 times daily 06/13/2023 documented as of this encounter Progress Notes * Lia Gilbert RN - 01/14/2023 11:59 PM CDT 01/28/23 1444 Pain Management Post-procedure questions How are you doing since procedure? Per pt great- she is able to get up and do things now. Have you gotten pain relief since your procedure? yes What % of pain relief did you get? other (80%) Other concerns? No other concerns exist Phone Call Status Call status Success (2 weeks) documented in this encounter H&P Notes * Gerard Gallegos MD - 01/14/2023 2:26 PM CDT Procedure Note H&P Chief complaint: Left hip pain HPI: Patient comes back today for left hip intra-articular steroid injection. Patient denies any changesin her health since the last time she was seen in clinic. Physical Exam Vitals and nursing note reviewed. Constitutional: Appearance: Normal appearance. HENT: Nose: Nose normal. Eyes: Pupils: Pupils are equal, round, and reactive to light. Cardiovascular: Pulses: Normal pulses. Pulmonary: Effort: Pulmonary effort is normal. Abdominal: Palpations: Abdomen is soft. Skin: General: Skin is warm. Capillary Refill: Capillary refill takes less than 2 seconds. Neurological: Mental Status: She is alert and oriented to person, place, and time. Psychiatric: Mood and Affect: Mood normal. Behavior: Behavior normal. Plan: - Proceed with left hip intra-articular steroid injection Gerard Kay MD/PhD [employer] [facility] documented in this encounter Procedure Notes * Gerard Gallegos MD - 01/14/2023 2:27 PM CDTAssociated Order(s): PAIN MANAGEMENT PROCEDURE TIME PROCEDURE NOTE - LEFT Hip intra-articular steroid injection Primary pain complaint: Hip Pain Pre-procedure diagnosis: Hip arthritis Post-procedure diagnosis: Same Attending staff: Dr. Gerard Kay MD., Ph.D. Brattice Builder: MD Ishaan. The procedure and risks were [...] throughout the procedure with pulse-oximetry. The LEFT hip joint was identified with fluoroscopy in the [...] was injected to confirm intraarticular flow. Subsequently, 6ml solution containing 1 ml of Triamcinolone 40mg/ml and 5 ml bupivacaine 0.25% was injected after negative aspiration of blood. The needle was withdrawn. Patient was brought to the recovery room for observation in stable condition and was discharged with written discharge instructions with an escort. Vitals were recorded as part of the john-procedure nursing note. Pain pre-procedure: 02/11 Pain post-procedure: [...] I, Gerard Kay, performed the whole procedure. documented in this encounter Plan of Treatment Upcoming Encounters Date Type Department Care Team (Late st Contact Info) Description 07/25/2024 10:00 AM METAL TANK ERECTOR Office Visit [facility] - Endocrinology [address] [place] [address], [place] [address] Yosi Bustamante MD [address] [place] [address] [place] [address] 07/26/2024 10:00 AM METAL TANK ERECTOR Appointment [facility] [address] [place] [address] Neri Delgado MD [address] [place] [address] 07/26/2024 10:00 AM METAL TANK ERECTOR Office Visit [facility] - ENT [address] [place] [phone] Myra Farmer, TRAIN RESERVATION CLERK [address] [place] [address] [place] [phone] 07/26/2024 11:15 AM METAL TANK ERECTOR Office Visit [facility] - ENT [address] [place] [phone] Neri Delgado MD [address] [place] [address] 08/02/2024 2:20 PM METAL TANK ERECTOR Appointment [facility] [address] [place] [phone] 08/02/2024 3:00 PM METAL TANK ERECTOR Office Visit [facility] - Hematology/Oncology [address] [place] [phone] Remi Beckett MD [address] [place] [phone] 08/18/2024 1:45 PM METAL TANK ERECTOR Office Visit [facility] - ENT [address] [place] [phone] Neri Delgado MD [address] [place] [address] documented as of this encounter Procedures Procedure Name Priority Date/Time Associated Diagnosis Comments PAIN MANAGEMENT PROCEDURE TIME Routine 01/14/2023 2:19 PM CDT Arthritis, hip documented in this encounter Results * PAIN MANAGEMENT PROCEDURE TIME (01/14/2023 2:19 PM CDT) Anatomical Region Laterality Modality Radio Fluoroscop y Narrative 01/14/2023 2:27 PM CDT Gerard Gallegos MD ? 01/14/2023 ??2:27 PM PROCEDURE NOTE - LEFT Hip intra-articular steroid injection Primary pain complaint: Hip Pain Pre-procedure diagnosis: Hip arthritis Post-procedure diagnosis: Same Attending staff: Dr. Gerard Kay MD., Ph.D. Brattice Builder: MD Ishaan. The procedure and risks were [...] Vitals were recorded as part of the john-procedure nursing note. Pain pre-procedure: 8 Pain post-procedure: 07/14 Anesthesia: local anesthesia Complications: [...] instructed to go to local Emergency Room. IGerard, performed the whole procedure. Gerard Kay MD DIAGNOSTIC IMAGIN G ORDERABLES documented in this encounter Visit Diagnoses Diagnosis Arthritis, hip Unspecified arthropathy, pelvic region and thigh documented in this encounter Administered Medications Inactive Administered Medications - up to 3 most recent administrations Medication Order MAR Action Action Date Dose Rate Site iopamidol (Isovue M 200) 41 % contrast Intraspinal, INTRA-PROCEDURE ONCE, 1 dose, On Josi 01/14/23 at 1345, Intra-epidural Administer per physician direction. $ Given - Contrast 01/14/2023 2:22 PM CDT 1 mL lidocaine (Xylocaine MPF) 2% injection ADS Med 1 dose, Starting on Josi 01/14/23 at 1315, Until Josi 01/14/23 at 1422, Created by cabinet override $ Given 01/14/2023 2:22 PM CDT 5 mL Left Hip lidocaine (Xylocaine PF) 1% injection ADS Med 1 dose, Starting on Josi 01/14/23 at 1315, Until Josi 01/14/23 at 1423, Created by cabinet override lidocaine PF (Xylocaine MPF) 1 % injection Infiltration, INTRA-PROCEDURE MULTIPLE, Starting on Josi 01/14/23 at 1334, Until Wed01/15/23 at 0135, Administer per physician direction. $ Given 01/14/2023 2:23 PM CDT 50 mg Left Hip triamcinolone acetonide (Kenalog-40) 40 mg/mL injection ADS Med 1 dose, Starting on Josi 01/14/23 at 1315, Until Josi 01/14/23 at 1422, Created by cabinet override Shake well before using. $ Given 01/14/2023 2:22 PM CDT 40 mg Left Hip documented in this encounter Care Teams Metal Furnace Operator Relationship Specialty Start Date End Date Joseph Manzanares MD [address] [place] [phone] PCP - General Internal Medicine 10/07/22 04/20/23 Tiana Naylor DO [address] [place] [address] Resident - PCP Internal Medicine 01/13/23 04/20/23 documented as of this encounter
--- OUTSIDE RECORDS SUMMARY | 2024-07-23 07:10 | XMS_ITS | Encounter Summary ---
Author Organization [facility] Health Address [address] [facility] [place] [address] Care Team Providers Care Unarmed Security Officer Name Role Phone Adriana Adams DO Unavailable Joseph Manzanares MD Primary Care Provider [phone] Tiana Nyalor DO Unavailable [phone] Tiana Naylor DO Primary Care Provider Joseph Manzanares MD Unavailable Yaya Villatoro MD Primary Care Provider [phone] Encounter Details Date Type Department Care Team (Late st Contact Info) Description 12/14/2022 Telephone [facility] - Centralized Scheduling [address] [place] [phone] Coy Gómez MD [address] [place], [place] [phone] Social History Tobacco Use Types Packs/Day Years [...] st Contact Info) Description 07/25/2024 10:00 AM BEFORE SCHOOL Office Visit [facility] - Endocrinology [address] [place] [phone] Yosi Bustamante MD [address] [place] [address] 2L [place] [address] 07/26/2024 10:00 AM BEFORE SCHOOL Appointment [facility] [address] [place] [phone] Neri Delgado MD [address] [place] [address] 07/26/2024 10:00 AM BEFORE SCHOOL Office Visit [facility] - ENT [address] [place] [phone] Myra Farmer, BEFORE SCHOOL [address] [place] [address] 2L [place] [address] 07/26/2024 11:15 AM BEFORE SCHOOL Office Visit [facility] - ENT [address] [place] [phone] Neri Delgado MD [address] [place] [address] 08/02/2024 2:20 PM BEFORE SCHOOL Appointment [facility] [address] [place] [address] 08/02/2024 3:00 PM BEFORE SCHOOL Office Visit [facility] Physician Group - Hematology/Oncology [address] [place] [phone] Remi Beckett MD [address] [place] [phone] 08/18/2024 1:45 PM BEFORE SCHOOL Office Visit [facility] Physician Group - ENT [address] [place] [phone] Neri Delgado MD [address] [place] [address] documented as of this encounter Visit Diagnoses Not on filedocumented in this encounter Care Teams Unarmed Security Officer Relationship Specialty Start Date End Date Joseph Manzanares MD [address] [place] [phone] PCP - General Internal Medicine 10/07/22 04/20/23 Tiana Naylor DO [address] [facility] [place] [address] PCP - General Internal Medicine 04/21/23 05/03/23 Yaya Villatoro MD [address] [phone] PCP - General Internal Medicine 05/04/23 Adriana Adams DO [address] [place] [phone] Resident - PCP Internal Medicine 04/06/22 01/12/23 Tiana Naylor DO [address] [facility] [address] [place] [address] Resident - PCP Internal Medicine 01/13/23 04/20/23 Joseph Manzanares MD [address] [place] [phone] Internal Medicine 04/21/23 documented as of this encounter
--- OUTSIDE RECORDS SUMMARY | 2024-07-23 07:10 | XMS_ITS | Encounter Summary ---
Author Organization [facility] Health Address [address] [place] [address] Care Team Providers Care Paper Cone Machine Operator Name Role Phone Joseph Manzanares MD Primary Care Provider [phone] Tiana Naylor DO Unavailable [phone] Encounter Details Date Type Department Care Team (Latest Contact Info) Description 02/11/2023 Travel Social History Tobacco Use Types Packs/Day [...] 1 11/25/2022 [facility] - Occupational [...] st Contact Info) Description 07/25/2024 10:00 AM TUFTER OPERATOR Office Visit [facility] - Endocrinology [address] [place] [phone] Yosi Bustamante MD [address] [place] [address] 2L [place] [address] 07/26/2024 10:00 AM TUFTER OPERATOR Appointment [facility] RAD [address] [place] [phone] Neri Delgado MD [address] [place] [address] 07/26/2024 10:00 AM TUFTER OPERATOR Office Visit [facility] - ENT [address] [place] [phone] Myra Farmer, PATIENT LIAISON [address] [place] [address] 2L [place] [address] 07/26/2024 11:15 AM TUFTER OPERATOR Office Visit [facility] - ENT [address] [place] [phone] Neri Delgado MD [address] [place] [address] 08/02/2024 2:20 PM TUFTER OPERATOR Appointment [facility] [address] [place] [address] 08/02/2024 3:00 PM TUFTER OPERATOR Office Visit [facility] Group - Hematology/Oncology [address] [place] [phone] Remi Beckett MD [address] [place] [phone] 08/18/2024 1:45 PM TUFTER OPERATOR Office Visit [facility] - ENT [address] [place] [phone] Neri Delgado MD [address] [place] [address] documented as of this encounter Visit Diagnoses Not on filedocumented in this encounter Care Teams Paper Cone Machine Operator Relationship Specialty Start Date End Date Joseph Manzanares MD [address] [place] [phone] PCP - General Internal Medicine 10/07/22 04/20/23 Tiana Naylor DO [address] [place] [address]?? [place] [address] Resident - PCP Internal Medicine 01/13/23 04/20/23 documented as of this encounter
--- OUTSIDE RECORDS SUMMARY | 2024-07-23 07:10 | XMS_ITS | Encounter Summary ---
Author Organization [facility] Address [address] [facility] [place] [address] Care Team Providers Care Mica Plate Layer Hand Name Role Phone Adriana Adams DO Unavailable Joseph Manzanares MD Primary Care Provider [phone] Reason for Referral * Radiology Services (Routine) - Closed Specialty Diagnoses / Procedures Referred By Yuan robins Referred To Contact Diagnoses Cervical spine tumor Cancer, metastatic to bone (HCC) Thyroid cancer (HCC) Procedures MRI CERVICAL SPINE WWO CONT Marcio Mcintosh MD [address] [place] [address] [address] Referral ID Status Reason Start Date Expiration Date Visits Re quested Visits Authorized [id number] Closed 03/25/2023 06/23/2023 1 1 Encounter Details Date Type Department Care Team (Latest Contact Info) Description 12/24/2022 11:30 AM CDT - 12/24/2022 11:59 PM CDT Hospital Encounter [facility] [place] [address] Marcio Mcintosh MD [facility] [place] [address] Discharge Disposition: Home or Self [...] suspected to have Coronavirus/COVID-19? No / Unsure 12/24/2022 10:12 AM CDT documented as of this encounter Last Filed Vital Signs Vital Sign Reading Time Taken Comments Blood Pressure 127/73 12/24/2022 11:57 AM CDT Pulse 84 12/24/2022 11:57 AM CDT Temperature 36.6 ??C (97.8 ??F) 12/24/2022 11:57 AM C DT Respiratory Rate 20 12/24/2022 11:57 AM CDT Oxygen Saturation 97% 12/24/2022 11:57 AM CDT Inhaled Oxygen Concentration - - Weight 63.1 kg (139 lb 3.2 oz) 12/24/2022 11:57 AM CDT Height - - Body Mass Index 24.66 11/25/2022 3:15 PM CDT documented in this encounter Functional [...] A DAY 60 capsule 11 02/22/2022 05/28/2023 OVGUOJW-HTWKXCOTG-BXIP PO Take by mouth once daily 06/13/2023 [...] sprayIndications:Allergi c rhinitis, unspecified seasonality, unspecified trigger [place] 2 (two) sprays into each nostril once daily 48 g 11/25/2022 02/22/2023 YYKELO-WSINFOIOB-OEO-C-H YAL PO Take 1 tablet by mouth [...] MOUTH ONCE DAILY FOR STOMACH 90 tablet 05/14/2022 01/13/2023 senna (Senokot Extra Strength) 17.2 MG Take 17.2 mg by mouth once daily 30 tablet 1 10/07/2022 01/14/2023 vitamin E (TOCOPHERYL) 200 UNIT capsule Take 1 (one) capsule by mouth 3 times daily 06/13/2023 documented as of this encounter Progress Notes * Marcio Mcintosh MD - 12/24/2022 12:43 PM CDT Images from the original note were not included. Return Patient Visit Department of Radiation Oncology [facility] ENCOUNTER DATE: 12/24/2022 PATIENT IDENTIFICATION Brisa Hogan 1960 [employer] Data Chief Complaint: No chief complaint on file. Diagnosis: 1. Cervical spine tumor 2. Cancer, metastatic to bone (CMS/HCC) 3. 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 ??Repeat biopsy of the right thyroid lobe on 1produced a diagnosis of follicular neoplasm and she underwent a completion thyroidectomy and bilateral neck dissection on 08/19/2020. 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 ??Tumor broached the inked surgical margins at??Superior and inferior tracheal margins. ??Tumor involved the tracheal mucosa. ??Negative surgical margin obtained on the left tracheal wall excision site. ??The right superiortracheal wall showed evidence of submucosal involvement by [...] Gómez??who recommended surgical decompression and cervical spine stabilization scheduled for 10/02/2022. She received SBRT to the Cervical Spine with 2400cGy in 2 fractions ending on 09/21/2022. She tolerated without event and was planned for future surgery. SUBJECTIVE/HPI: Ms. Brisa Hogan is a 62 year old female who returns for a follow up visit. Since our last visit, Brisa has underwent surgical stabiliation and decompression on 10/02/2022. She still has Limited use of the left arm. She has went to physical therapy for muscle strengthening. She has noted that her arm is getting better with activity. Her hand has mind of its own as it may clench or tense up.. Her fingers may move with palms and hand numb as well as from antecubital area to thumb.. REVIEW OF SYSTEMS: GENERAL: Denies Headaches, nausea, vomiting PULMONARY: Denies cough or worsened shortness of breath NEUROLOGIC: Denies new neurologic deficit or weakness/loss of motion in arms or legs I have also reviewed the nursing assessment flowsheet below: Radiation Oncology Nursing Assessement 12/24/2022 Education: Education done: no Karnofsky ECOG Score: Karnofsky ECOG Score: [place] 80- Normal activity with effort, some sign of symptoms of disease/ECOG 1-Restricted in physically strenuous activity but ambulatory and able to carry out work of a light or sedentary nature Treatment Sites: System Assessment: Pain: Pain: Yes Nausea: Nausea: No Fatigue: Fatigue: No Sleep: Sleep: No Mobility: Mobility: Yes Bathing/Dressing: Bathing/Dressing: No Breathing: Breathing: No (dyspnea on exertion) Mouth Sores: Mouth Sores: No Eating: Eating: Yes (difficulty swallowing breads. needs small bites and with water.) Indigestion: Indigestion: No Constipation: Constipation: No Diarrhea: Diarrhea: No Changes in Urination: Changes in urination: No Fevers: Fevers: No Skin Dry/Itchy: Skin dry/itchy: No Nasal: Nasal: No Hands/Feet: Memory/Concentration: Memory/concentation: No Swelling: Swelling: No Appearance: Appearance: No Sexual: Mucous Membrances: Mucous Membranes: Dry Eye: Eyes: 0-No exchange mechanic baseline Ears: Salivary Glands: Salivary Glands: 0-no exchange mechanic baseline Pharynx and Esophagus: Pharynx and Esophagus: 0-No exchange mechanic baseline Larynx: Larynx: 0-No change in baseline Upper GI: Upper GI: 0-no exchange mechanic baseline Lower GI including pelvis: Lower GI including pelvis: 0-No exchange mechanic baseline Lungs: Lungs: 0-No exchange mechanic baseline Other: Other: (left lower arm and hand numbness and tingling. hand and thumb worse. left hand fingers will claw and have a mind of their own) PAST MEDICAL HISTORY Past Medical History: Diagnosis [...] CAPSULE BY MOUTH TWICE A DAY ??? TXGAICX-KPJXHNHYE-DGRM PO Take by mouth once daily ??? [...] fluticasone propionate (Flonase) 50 MCG/ACT nasal spray [place] 2 (two) sprays into each nostril once daily (Patient not taking: Reported on 12/24/2022) ??? gabapentin (Neurontin) 300 MG capsule Take 1 (one) capsule by mouth 3 times daily ??? URLUHA-GVMURGTJR-KVI-C-HYAL PO Take 1 tablet by mouth 3 times daily ??? levothyroxine (Synthroid) 112 MCG tablet TAKE 1 TABLET BY MOUTH EVERY DAY ??? Misc Natural Products (NEURIVA PO) Take 1 tablet by mouth 2 times daily (Patient not taking: Reported on 12/24/2022) ??? oxybutynin CR 24hr (Ditropan-XL) 5 MG tablet Take 1 (one) tablet by mouth once daily ??? pantoprazole EC (Protonix) 40 MG tablet TAKE ONE TABLET BY MOUTH ONCE DAILY FOR STOMACH ??? PARoxetine (PAXIL) 40 MG tablet Take 1 (one) tablet by mouth once daily ??? senna (Senokot Extra Strength) 17.2 MG Take 17.2 mg by mouth once daily ??? traZODone (DESYREL) 50 MG tablet Take 1 (one) tablet by mouth at bedtime ??? vitamin E (TOCOPHERYL) 200 UNIT capsule Take 1 (one) capsule by mouth 3 times daily No current facility-administered medications for this encounter. Facility-Administered Medications Ordered in Other Encounters Medication ??? gadobutrol (Gadavist) injection OBJECTIVE: Vitals: 12/24/22 1157 BP: 127/73 Pulse: 84 Resp: 20 Temp: 97.8 ??F SpO2: 97% Weight: 63.1 kg (139 lb 3.2 oz) PainSc: Four PainLoc: Hip Wt Readings from Last 3 Encounters: 12/24/22 63.1 kg (139 lb 3.2 oz) 11/25/22 64.9 kg (143 lb) 11/19/22 63.5 kg (140 lb) KPS is 80 General Appearance: in no apparent distress, well developed and well nourished, alert, anicteric and cooperative HEENT: Normocephalic, atraumatic Post surgical changes to the neck area. Lymph: No adenopathy of the cervical or supraclavicular fossa visible Extremities:extremities normal, atraumatic, no cyanosis or edema Neurological exam reveals alert, oriented, normal speech, no focal findings or movement disorder noted, cranial nerves II through XII intact, motor and sensory grossly normal bilaterally, normal muscle tone, no tremors, strength 5/5, abnormal findings: Left shoulder with decreased ability to raise at shoulder, noted hand to antecubital numbness, and decreased coordination.. RADIOGRAPHIC IMAGES: XR THORACIC SPINE 3VW Result Date: 10/04/2022 IMPRESSION: 1.Postsurgical changes from posterior C2-T2 fusion and C3-C7 decompression are present with paired rods and interpedicular screws. The surgical hardware appears intact. 2.No evidence of cervical spine fracture or malalignment. Report dictated by Kalin Kumar M.D. (radiology res ident) I, Joshua Gaytan DO have personally reviewed and interpreted this examination/study. > Interpreting Provider: Joshua Gaytan DO on 10/04/2022 12:48 PM XR CERVICAL SPINE 2 OR 3VW Result Date: 10/04/2022 IMPRESSION: 1.Postsurgical changes from posterior C2-T2 fusion and C3-C7 decompression are present with paired rods and interpedicular screws. The surgical hardware appears intact. 2.No evidence of cervical spine fracture or malalignment. Report dictated by Kalin Kumar M.D. (radiology res ident) I, Joshua Gaytan DO have personally reviewed and interpreted this examination/study. > Interpreting Provider: Joshua Gaytan DO on 10/04/2022 12:48 PM MRI CERVICAL SPINE WWO CONT On my personal review the extent of tumor infiltration into the spinal canal has decreased. There still remains significant residual around C5-C6 possibly into C6-C7 neural foramen. I have attached the radiologist review below Result Date: 12/25/2022 IMPRESSION: Since prior MRI of the cervical spine [...] of the spinal canal with residual tumor inthe left C4-C5, C5-C6, and C6-C7 neural foramina, as outlined above. Continued attention on follow-up is recommended. > Interpreting Provider: Shelli Escamilla MD on 12/25/2022 8:54 AM LABORATORY: WBC Date Value Ref Range Status [...] Final TSH Date Value Ref Range Status 11/02/2022 1.600 0.350 - 4.940 uIU/mL Final IMPRESSION/PLAN Brisa Hogan presents to us today with further radiographic improvement after her most recent intervention of surgical decompression. The imaging exam is difficult with the current metal interference but notably has less tumor burden infiltrating to the spinal cord. The follow-up examination should occur in approximately 3 months with a repeat RI scan. We would like to see Brisa in 3 months for a follow up visit. We have ordered her future MR cervical spine. Minimum duration of time spent in chart (preparing with review of radiographic and laboratory tests, discussion of planned care with staff and physicians, discussion with patient for counseling and educating, as well as ordering future tests, radiographic studies, or procedures) : No LOS data to display Portions of this note reflect historical treatments, history of disease, ongoing symptomatology, and exam findings that remain unchanged from the past note ( 09/21/2022 , and may be located in Media [...] of this note, please contact the [facility] for clarification. Marcio Mcintosh MD 12/24/2022 12:43 PM documented in this encounter Plan of Treatment Upcoming Encounters Date Type Department Care Team (Late st Contact Info) Description 07/25/2024 10:00 AM FIREWALL ENGINEER Office Visit [facility] - Endocrinology [address] [facility], [place] [address] Yosi Bustamante MD [address] [place] [address] 2L [place] [address] 07/26/2024 10:00 AM FIREWALL ENGINEER Appointment [facility] [address] [place] [address] Neri Delgado MD [address] [place] [address] 07/26/2024 10:00 AM FIREWALL ENGINEER Office Visit [facility] - ENT [address] [place] [phone] Myra Farmer, REVOLVING FIELD ASSEMBLER [address] [place] [address] 2L [place] [phone] 07/26/2024 11:15 AM FIREWALL ENGINEER Office Visit [facility] - ENT [address] [place] [phone] Neri Delgado MD [address] [place] [phone] 08/02/2024 2:20 PM FIREWALL ENGINEER Appointment [facility] [address] [place] [address] 08/02/2024 3:00 PM FIREWALL ENGINEER Office Visit [facility] - Hematology/Oncology [address] [place] [phone] Remi Beckett MD [address] [place] [phone] 08/18/2024 1:45 PM FIREWALL ENGINEER Office Visit [facility] - ENT [address] [place] [phone] Neri Delgado MD [address] [place] [address] documented as of this encounter Results * [...] > Dictated by Sukhwinder Quevedo MD (resident) IShelli MD have personally reviewed and interpreted this examination/study. > Interpreting Provider: Shelli Escamilla MD on 03/26/2023 2:43 PM Narrative 03/26/2023 2:43 PM CDT PROCEDURE: ??MRI CERVICAL SPINE WWO CONT, DATE/TIME OF EXAM: ??03/25/2023 12:55 PM, LOCATION ??[facility] INDICATION: D49.2: Cervical spine tumor C79.51: Cancer, [...] OF EXAM: 03/25/2023 12:55 PM, LOCATION [facility] INDICATION: D49.2: Cervical spine tumor C79.51: Cancer, metastatic to bone (CMS/HCC) C73: Thyroid cancer (CMS/HCC) ADDITIONAL CLINICAL INFORMATION: Ordering Provider Reason For Exam: eval for changes Technologist Note: Does the patient have a defibrillator, pacemaker, aneurysm clips or implanted mechanical devices?->No Does the patienthave metal implants or stents?->No Additional: None. CONTRAST: GADOBUTROL 1 MMOL/ML IV SS SO:6 mL TECHNIQUE: MRI of the cervical [...] > Dictated by Sukhwinder Quevedo MD (resident) I, Shelli Escamilla MD have personally reviewed and interpretedthis examination/study. > Interpreting Provider: Shelli Escamilla MD on 03/26/2023 2:43 PM Marcio Mcintosh MD MR ORDERABLES documented in this encounter Visit Diagnoses Diagnosis Cervical spine tumor- Primary Neoplasm of unspecified nature of bone, soft tissue, and skin Cancer, metastatic to bone (HCC) Secondary malignant neoplasm of bone and bone marrow Thyroid cancer (HCC) Malignant neoplasm of thyroid gland Cervical spine tumor Neoplasm of unspecified nature of bone, soft tissue, and skin Cancer, metastatic to bone (HCC) Secondary malignant neoplasm of bone and bone marrow Thyroid cancer (HCC) Malignant neoplasm of thyroid gland documented in this encounter Care Teams Mica Plate Layer Hand Relationship Specialty Start Date End Date Joseph Manzanares MD [address] [place] [phone] PCP - General Internal Medicine 10/07/22 04/20/23 Adriana Adams DO [address] [place] [address] Resident - PCP Internal Medicine 04/06/22 01/12/23 documented as of this encounter
--- OUTSIDE RECORDS SUMMARY | 2024-07-23 07:10 | XMS_ITS | Encounter Summary ---
Author Organization [facility] Address [address] [place] [address] Care Team Providers Care Stock Parts Fabricator Name Role Phone Joseph Manzanares MD Primary Care Provider [phone] Tiana Naylor DO Unavailable [phone] Encounter Details Date Type Department Care Team (Latest Contact Info) Description 01/29/2023 Travel Social History Tobacco Use Types Packs/Day [...] st Contact Info) Description 07/25/2024 10:00 AM MOLD INJECTOR Office Visit [facility] - Endocrinology [address] [place] [phone] Yosi Bustamante MD [address] [place] [address] 2L [place] [address] 07/26/2024 10:00 AM MOLD INJECTOR Appointment [facility] [address] [place] [phone] Neri Delgado MD [address] [place] [address] 07/26/2024 10:00 AM MOLD INJECTOR Office Visit [facility] - ENT [address] [place] [phone] Myra Farmer, FISH HOUSEKEEPER [address] [place] [address] 2L [place] [address] 07/26/2024 11:15 AM MOLD INJECTOR Office Visit [facility] - ENT [address] [place] [phone] Neri Delgado MD [address] [place] [phone] 08/02/2024 2:20 PM MOLD INJECTOR Appointment [facility] [address] [place] [phone] 08/02/2024 3:00 PM MOLD INJECTOR Office Visit [facility] - Hematology/Oncology [address] [place] [phone] Remi Beckett MD [address] [place] [phone] 08/18/2024 1:45 PM MOLD INJECTOR Office Visit [facility] - ENT [address] [place] [phone] Neri Delgado MD [address] [place] [address] documented as of this encounter Visit Diagnoses Not on filedocumented in this encounter Care Teams Stock Parts Fabricator Relationship Specialty Start Date End Date Joseph Manzanares MD [address] [place] [phone] PCP - General Internal Medicine 10/07/22 04/20/23 Tiana Naylor DO [address] [place] [address]?? [place] [address] Resident - PCP Internal Medicine 01/13/23 04/20/23 documented as of this encounter
--- OUTSIDE RECORDS SUMMARY | 2024-07-23 07:10 | XMS_ITS | Encounter Summary ---
Author Organization [facility] Address [address] [place] [address] Care Team Providers Care Keyseater Operator Name Role Phone Adriana Adams DO Unavailable Joseph Manzanares MD Primary Care Provider [phone] Reason for Visit * Radiology Services (Routine) - Closed Specialty Diagnoses / Procedures Referred By Yuan robins Referred To Contact Diagnoses Neoplasm of uncertain behavior of skin Thyroid cancer (HCC) Procedures MRI CERVICAL SPINE WWO CONT Marcio Mcintosh MD [address] [place] [address] [phone] Referral ID Status Reason Start Date Expiration Date Visits Re quested Visits Authorized [id number] Closed 12/15/2022 12/15/2023 1 1 Encounter Details Date Type Department Care Team (Latest Contact Info) Description 12/24/2022 10:30 AM CDT - 12/24/2022 11:29 AM CDT Hospital Encounter [facility] MRI [address] [place] [phone] Marcio Mcintosh MD [address] [place] [address] Discharge Disposition: Home or Self [...] Date Recorded PHQ2 TOTAL SCORE 1 11/25/2022 [facility] of Occupat ional Health - Occupational Stress [...] A DAY 60 capsule 11 02/22/2022 05/28/2023 [id number] PO Take by mouth once daily 06/13/2023 [...] sprayIndications:Allergi c rhinitis, unspecified seasonality, unspecified trigger [place] 2 (two) sprays into each nostril once daily 48 g 11/25/2022 02/22/2023 [id number]-H YAL PO Take 1 tablet by mouth [...] st Contact Info) Description 07/25/2024 10:00 AM LINOLEUM LAYER Office Visit [facility] - Endocrinology [address] [place] [phone] Yosi Bustamante MD [address] [place] [address] 2L [place] [address] 07/26/2024 10:00 AM LINOLEUM LAYER Appointment [facility] DIAGNOSTIC RAD [address] [place] [address] Neri Delgado MD [address] [place] [address] 07/26/2024 10:00 AM LINOLEUM LAYER Office Visit [facility] - ENT [address] [place] [phone] Myra Farmer, SUBSTATION DESIGNER [address] [place] [address] 2L [place] [address] 07/26/2024 11:15 AM LINOLEUM LAYER Office Visit [facility] - ENT [address] [place] [phone] Neri Delgado MD [address] [place] [address] 08/02/2024 2:20 PM LINOLEUM LAYER Appointment [facility] [address] [place] [address] 08/02/2024 3:00 PM LINOLEUM LAYER Office Visit [facility] - Hematology/Oncology [address] [place] [phone] Remi Beckett MD [address] [place] [phone] 08/18/2024 1:45 PM LINOLEUM LAYER Office Visit [facility] - ENT [address] [place] [phone] [place] [address] [place] [address] documented as of this encounter Procedures Procedure Name Priority Date/Time Associated Diagnosis Comments MRI CERVICAL SPINE WWO CONT Routine 12/24/2022 11:32 AM CDT Neoplasm of uncertain behavior of skin Thyroid cancer (HCC) CREATININE - POCT INTERFACED Routine 12/24/2022 10:59 AM CDT documented in this encounter Results * MRI CERVICAL SPINE WWO CONT (12/24/2022 11:32 AM CDT) Anatomical Region Laterality Modality Spine Magnetic Resonan ce 12/24/2022 4:01 PM CDT Impressions 12/25/2022 8:54 AM CDT IMPRESSION: Since prior MRI of the cervical [...] Shelli Escamilla MD on 12/25/2022 8:54 AM Narrative 12/25/2022 8:54 AM CDT PROCEDURE: ??MRI CERVICAL SPINE WWO CONT, DATE/TIME OF EXAM: ??12/24/2022 11:32 AM, LOCATION ??[facility] INDICATION: 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 The patient described neck pain that radiated into both shoulders, left arm numbness, and difficulty controlling her left hand. MRI cervical spine demonstratedosseous metastasis in the left aspect of the C5 and C6 vertebraewith tumor extension into the epidural space and left neural foramina from C4-5 to C6-7and possibleencasement/abutment of the left vertebral artery.The patient presented to [facility] for electiveC2-T2 fusion and decompression C3-C7 and resection extramedullary spine tumoron 10/02/[address] Gómez, without incident. Pathology was consistent with Metastatic carcinoma. PROCEDURE PERFORMED: Cervical 2 to thoracic 2 posterior spinal instrumented fusion with laminectomy for partial resection of extramedullary tumor from cervical levels 3-7, intraoperative neuromonitoring, use of autograft, allograft and vancomycin beads, placement of subfacial drain. CONTRAST: ??GADOBUTROL 1 MMOL/ML IV SSM SO:6 mL EXAMINATION: Magnetic resonance imaging (MRI) of the cervical spine without and with contrast TECHNIQUE: MRI of the cervical spine was performed prior to and following the uneventful administration of 6 mL intravenous GADAVIST contrast according to standard protocol. COMPARISON: MRI of the cervical spine from 08/21/2022 FINDINGS: Since prior MRI of the cervical [...] artifacts from the hardware limits local evaluation. There is a thin/small linear, peripherally enhancing [...] the posterior dura along the laminectomy bed. Residual enhancing soft tissues is again noted [...] no cord compression on the current study. Mild anterolisthesis of C4 on C5. Mild [...] stenosis. 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 Additional: Patient is a62 year oldfemalewith a history ofmetastatichigh risk papillary thyroid cancer ([id number] - IVb) s/psalvage total thyroidectomyrequiringsacrifice ofrightRLN/tracheal resection/re-anastomosis,bilateral lateraland central neck /04/2022with right neck residual/recurrent diseaseand metastases to the spines/p revision right central neck dissection. The patient described neck pain that radiated into both shoulders, left arm numbness, and difficulty controlling her left hand. MRI cervical spine demonstratedosseous metastasis in the left aspect of the C5 and C6 vertebraewith tumor extension into the epidural space and left neural foramina from C4-5 to C6-7and possibleencasement/abutment of the left vertebral artery.The patient presented to [facility] for electiveC2-T2 fusion and decompression C3-C7 and resection extramedullary spinetumoron 10/02/[address] Gómez, without incident. Pathology was consistentwith Metastatic carcinoma. PROCEDURE PERFORMED: Cervical 2 to thoracic 2 posterior spinal instrumented fusion with laminectomy for partial resection of extramedullary tumor from cervical levels 3-7, intraoperative neuromonitoring, use of autograft, allograftand vancomycin beads, placement of subfacial drain. CONTRAST: GADOBUTROL 1 MMOL/ML IV SSM SO:6 mL EXAMINATION: Magnetic resonance imaging (MRI) of the cervical spinewithout and with contrast TECHNIQUE: MRI of the cervical spine was performed prior to andfollowing the uneventful administration of 6 mL intravenous GADAVIST contrast according to standard protocol. COMPARISON: MRI of the cervical spine from 08/21/2022 FINDINGS: Since prior MRI of the cervical spine from 08/21/2022, there has been interval postoperative findings of C3-C7 decompressive laminectomy for resection of the extramedullary spinal tumor seen on the prior withC2-T2 posterior instrumented fusion, with postsurgical changes in theparaspinal soft tissues of diffuse fat stranding and disruption of the posterior paraspinal soft tissues related to the surgery. Blooming artifacts fromthe hardware limits local evaluation. There is a thin/small linear, peripherally enhancing fluid collection in the deep subcutaneous soft tissues at the midline measuringapproximately 0.9 x 0.4 x 2.3 cm in the maximal transaxial and craniocaudaldimensions, (series 5, image 20, and series 4, image 11), which extend deep to the level just posterior to the thecal sac with an irregular fluidcollection that is difficult to measure due to its triangular shape but measures approximately 1.4 cm AP by 2.1 cm TV by 2.1 cm cc along its inneraspect, (series 5, image 18, and series 4, image 11), likely representing representing small volume postoperative fluid or seroma however, superimposed infection cannot be excluded in the appropriate clinical setting. There is peripheral enhancement surrounding the above-mentioned thin subcutaneous soft tissue collection as well as extensive, diffusesoft tissue swelling in the posterior paraspinous soft tissues of the neck at the laminectomy site. Findings are nonspecific and likely reactive.There is diffuse enhancement along the posterior dura along the laminectomybed. Residual enhancing soft tissues is again noted in the left C5-C6 neural foramen, extending to the extra foraminal compartment, measuring approximately 2.4 x 1.2 cm in the maximal transaxial dimensions, (series 10, image 23), as well as in the left C6-C7 neural foramen measuring approximately 1.4 x 1.4 cm, (series 10, image 27). Persistent encasementof the left vertebral artery is again noted, (series 5, image 23). Minimal soft tissue enhancement is also noted in the C4-C5 neural foramenmeasuring approximately 0.9 x 0.7 cm, (series 10, image 20). Previously seen the ventral epidural enhancement is not seen on the current study. There has been interval resection of the tumor abutting the cord which was seen on the prior. There is no cord compression on the current study. Mild anterolisthesis of C4 on C5. Mild anterolisthesis of C6 on C7 and trace anterolisthesis of C7 on T1. The alignment is otherwisemaintained. Vertebral bodies are normal in height without evidence of compression fractures. Redemonstration of abnormal STIR signal involving theposterior aspect of C5 and C6. Lytic and sclerotic lesion seen on the prior CTfrom 01/28/2022 [place] signal intensity of the remaining cervical spineappears unremarkable and grossly stable. The craniocervical junction andvisualized portions of the posterior fossa appear normal. [...] to moderate bilateral neural foraminal stenosis. IMPRESSION: Since prior MRI of the cervical spine from 08/21/2022: 1.There has been interval postoperative findings of C3-C7 decompressive laminectomy for partial resection of the extramedullary spinal tumor,and C2-T2 posterior instrumented fusion, with postsurgical changes asoutlined above. Diffuse soft tissue enhancement in the laminectomy bed with asmall volume fluid collection with peripheral enhancement which couldrepresent postoperative fluid collection, or seroma, however, superimposedinfection cannot be excluded in the appropriate clinical setting. Clinical correlation is recommended. 2.There has been interval satisfactory decompression of the spinal canal with residual tumor in the left C4-C5, C5-C6, and C6-C7 neural foramina,as outlined above. Continued attention on follow-up is recommended. > Interpreting Provider: Shelli Escamilla MD on 12/25/2022 8:54 AM Marcio Mcintosh MD MR ORDERABLES * (ABNORMAL) CREATININE - POCT INTERFACED (12/24/2022 10:59 AM CDT) Creatinine POCT 0.75 0.30 - 1.30 mg/dL 12/24/2022 11:01 AM CDT [facility] eGFR 89(L) >90 mL/min/1.7 3 m2 12/24/2022 11:01 AM CDT [facility] Blood BLOOD SPECIMEN / Unknown 12/24/2022 10:59 AM CDT 12/24/2022 11:01 AM CDT Marcio Mcintosh MD LAB - POINT OF CARE ORDERABLES Performing Organization Address City/State/[facility] Co de Phone Number [facility] [address] [place] [address], [facility] [phone] documented in this encounter Visit Diagnoses Diagnosis Neoplasm of uncertain behavior of skin Thyroid cancer (HCC) Malignant neoplasm of thyroid gland documented in this encounter Administered Medications Inactive Administered Medications - up to 3 most recent administrations Medication Order MAR Action Action Date Dose Rate Site gadobutrol (Gadavist) injection Intravenous, CONTRAST ONCE, Starting on Josi 12/24/22 at 1132, Until Wed12/25/22 at 0135 $ Given - Contrast 12/24/2022 11:32 AM CDT 6 mL documented in this encounter Care Teams Keyseater Operator Relationship Specialty Start Date End Date Joseph Manzanares MD [address] [place] [phone] PCP - General Internal Medicine 10/07/22 04/20/23 Adriana Adams DO [address] [place] [address] Resident - PCP Internal Medicine 04/06/22 01/12/23 documented as of this encounter
--- OUTSIDE RECORDS SUMMARY | 2024-07-23 07:10 | XMS_ITS | Encounter Summary ---
Author Organization [facility] Health Address [address] [place] [address] Care Team Providers Care Cryogenic Transport Driver Name Role Phone Adriana Adams DO Unavailable Joseph Manzanares MD Primary Care Provider [phone] Encounter Details Date Type Department Care Team (Latest Contact Info) Description 10/23/2022 Travel Social History Tobacco Use Types Packs/Day [...] Date Recorded PHQ2 TOTAL SCORE 0 09/02/2022 [facility] of Occupat ional Health - Occupational Stress [...] st Contact Info) Description 07/25/2024 10:00 AM EQUIPMENT VALIDATION ENGINEER Office Visit [facility] - Endocrinology [address] [place] [address] Yosi Bustamante MD [address] [place] [address] 2L [place] [address] 07/26/2024 10:00 AM EQUIPMENT VALIDATION ENGINEER Appointment [facility] DIAGNOSTIC RAD [address] [place] [address] Neri Delgado MD [address] [place] [address] 07/26/2024 10:00 AM EQUIPMENT VALIDATION ENGINEER Office Visit [facility] - ENT [address] [place] [phone] Myra Farmer, ILLUSIONIST [address] [place] [address] 2L [place] [phone] 07/26/2024 11:15 AM EQUIPMENT VALIDATION ENGINEER Office Visit [facility] - ENT [address] [place] [phone] Neri Delgado MD [address] [place] [address] 08/02/2024 2:20 PM EQUIPMENT VALIDATION ENGINEER Appointment [facility] [address] [place] [address] 08/02/2024 3:00 PM EQUIPMENT VALIDATION ENGINEER Office Visit [facility] - Hematology/Oncology [address] [place] [phone] Remi Beckett MD [address] [place] [phone] 08/18/2024 1:45 PM EQUIPMENT VALIDATION ENGINEER Office Visit [facility] - ENT [address] [place] [phone] Neri Delgado MD [address] [place] [address] documented as of this encounter Visit Diagnoses Not on filedocumented in this encounter Care Teams Cryogenic Transport Driver Relationship Specialty Start Date End Date Joseph Manzanares MD [address] [place] [phone] PCP - General Internal Medicine 10/07/22 04/20/23 Adriana Adams DO [address] [place] [phone] Resident - PCP Internal Medicine 04/06/22 01/12/23 documented as of this encounter
--- OUTSIDE RECORDS SUMMARY | 2024-07-23 07:10 | XMS_ITS | Encounter Summary ---
Author Organization [facility] Health Address [address] [place] [address] Care Team Providers Care Graphic Design Teacher Name Role Phone Adriana Adams DO Unavailable Joseph Manzanares MD Primary Care Provider [phone] Encounter Details Date Type Department Care Team (Latest Contact Info) Description 12/24/2022 Travel Social History Tobacco Use Types Packs/Day [...] Date Recorded PHQ2 TOTAL SCORE 1 11/25/2022 [facility] of Occupat ional Health - Occupational Stress [...] st Contact Info) Description 07/25/2024 10:00 AM WALLPAPER CLEANER Office Visit [facility] - Endocrinology [address] [place] [phone] Yosi Bustamante MD [address] [place] [address] 2L [place] [address] 07/26/2024 10:00 AM WALLPAPER CLEANER Appointment [facility] DI[facility]STIC RAD [address] [place] [phone] Neri Delgado MD [address] [place] [address] 07/26/2024 10:00 AM WALLPAPER CLEANER Office Visit [facility] - ENT [address] [place] [phone] Myra Farmer, BOILER WASHER [address] [place] [address] 2L [place] [phone] 07/26/2024 11:15 AM WALLPAPER CLEANER Office Visit [facility] - ENT [address] [place] [phone] Neri Delgado MD [address] [place] [address] 08/02/2024 2:20 PM WALLPAPER CLEANER Appointment [facility] [address] [place] [address] 08/02/2024 3:00 PM WALLPAPER CLEANER Office Visit [facility] - Hematology/Oncology [address] [place] [phone] Remi Beckett MD [address] [place] [address] 08/18/2024 1:45 PM WALLPAPER CLEANER Office Visit [facility] - ENT [address] [place] [phone] Neri Delgado MD [address] [place] [address] documented as of this encounter Visit Diagnoses Not on filedocumented in this encounter Care Teams Graphic Design Teacher Relationship Specialty Start Date End Date Joseph Manzanares MD [address] [place] [address] PCP - General Internal Medicine 10/07/22 04/20/23 Adriana Adams DO [address] [place] [address] Resident - PCP Internal Medicine 04/06/22 01/12/23 documented as of this encounter
--- OUTSIDE RECORDS SUMMARY | 2024-07-23 07:10 | XMS_ITS | Encounter Summary ---
Author Organization [facility] Health Address [address] [place] [address] Care Team Providers Care Credit Risk Specialist Name Role Phone Adriana Adams DO Unavailable Joseph Manzanares MD Primary Care Provider [phone] Encounter Details Date Type Department Care Team (Latest Contact Info) Description 12/02/2022 Travel Social History Tobacco Use Types Packs/Day [...] Recorded PHQ2 TOTAL SCORE 1 11/25/2022 [facility] of Occupat ional Health - Occupational Stress [...] suspected to have Coronavirus/COVID-19? No / Unsure 12/02/2022 9:44 AM CDT documented as of this encounter [...] st Contact Info) Description 07/25/2024 10:00 AM FERTILIZER SUPERVISOR Office Visit [facility] - Endocrinology [address] [place] [phone] Yosi Bustamante MD [address] [place] [address] 2L [place] [address] 07/26/2024 10:00 AM FERTILIZER SUPERVISOR Appointment [facility] DIAGNOSTIC RAD [address] [place] [address] Neri Delgado MD [address] [place] [phone] 07/26/2024 10:00 AM FERTILIZER SUPERVISOR Office Visit [facility] - ENT [address] [place] [phone] Myra Farmer, LINK TRAINER MAINTENANCE WORKER [address] [place] [address] 2L [place] [phone] 07/26/2024 11:15 AM FERTILIZER SUPERVISOR Office Visit [facility] - ENT [address] [place] [phone] Neri Delgado MD [address] [place] [address] 08/02/2024 2:20 PM FERTILIZER SUPERVISOR Appointment [facility] [address] [place] [address] 08/02/2024 3:00 PM FERTILIZER SUPERVISOR Office Visit [facility] - Hematology/Oncology [address] [place] [phone] Remi Beckett MD [address] [place] [address] 08/18/2024 1:45 PM FERTILIZER SUPERVISOR Office Visit [facility] ENT [address] [place] [phone] Neri Delgado MD [address] [place] [address] documented as of this encounter Visit Diagnoses Not on filedocumented in this encounter Care Teams Credit Risk Specialist Relationship Specialty Start Date End Date Joseph Manzanares MD [address] [place] [address] PCP - General Internal Medicine 10/07/22 04/20/23 Adriana Adams DO [address] [place] [address] Resident - PCP Internal Medicine 04/06/22 01/12/23 documented as of this encounter
--- OUTSIDE RECORDS SUMMARY | 2024-07-23 07:10 | XMS_ITS | Encounter Summary ---
Author Organization [facility] Health Address [address] [place] [address] Care Team Providers Care Press Cleaner Name Role Phone Adriana Adams DO Unavailable Joseph Manzanares MD Primary Care Provider [phone] Reason for Visit * Treatment (Routine) - Closed Specialty Diagnoses / Procedures Referred By Contac t Referred To Contact Radiology / Pain Management Diagnoses Unilateral primary osteoarthritis, left hip Procedures SC DRAIN/INJECT LARGE JOINT/BURSA Gerard Gallegos MD [address] [place] [phone] [facility] Pain Management [address] [place] [address] Referral ID Status Reason Start Date Expiration Date Visits Re quested Visits Authorized [id number] Closed 12/10/2022 12/10/2023 1 1 Encounter Details Date Type Department Care Team (Latest Contact Info) Description 12/10/2022 3:06 PM CDT - 12/10/2022 11:59 PM CDT Hospital Encounter [facility] Health Pain Care [address] [phone] Gerard Gallegos MD [address] [place] [phone] Discharge Disposition: Home or Self Care [...] Sign Reading Time Taken Comments Blood Pressure 111/68 12/10/2022 3:29 PM CDT Pulse 90 12/10/2022 3:59 PM CDT Temperature 36.7 ??C (98 ??F) 12/10/2022 3:29 PM CDT Respiratory Rate 18 12/10/2022 3:29 PM CDT Oxygen Saturation 98% 12/10/2022 3:59 PM CDT Inhaled Oxygen Concentration - - [...] this encounter Discharge Instructions * Patient Instructions* Heather Hernadez RN - 12/10/2022 3:31 PM CDT PAIN MANAGEMENT CENTER DISCHARGE INSTRUCTIONS for: Brisa Hogan You had the following procedure: left hip injection Special Instructions: No soaking in water for [...] headache, or any other problems, please call [phone] or the after hours answering service at [phone] and tell them your physician's name. The exchange willalert the physician power station operator. May remove band-aid in the morning on December 11, 2022. If you are diabetic, your blood sugar [...] for 24 hours. For Your Next Visit: schedule left greater trochanteric bursa injection Please do the following:arrive 15 to 30 [...] answered. Patient verbalized understanding with above instructions. 12/10/2022 documented in this encounter Medications at Time [...] AT BEDTIME 30 tablet 3 05/14/2022 02/16/2023 B Complex Vitamins (B COMPLEX 1 PO) Take by mouth once daily 12/24/2022 calcitriol (Rocaltrol) 0.5 MCG capsuleIndications:Posto perative hypothyroidism,Thyroid cancer (HCC),Hypocalcemia TAKE 1 CAPSULE BY MOUTH TWICE A DAY 60 capsule 11 02/22/2022 05/28/2023 DGCCYDC-MURUKPIJH-DLCE PO Take by mouth once daily 06/13/2023 [...] sprayIndications:Allergi c rhinitis, unspecified seasonality, unspecified trigger Marcus 2 (two) sprays into each nostril once daily 48 g 11/25/2022 02/22/2023 XZSAFD-ZZBCIUMIU-XKC-C-H YAL PO Take 1 tablet by mouth 3 times daily 06/13/2023 levothyroxine (Synthroid) 112 MCG tabletIndications:Postop erative hypothyroidism TAKE 1 TABLET BY MOUTH EVERY DAY 90 tablet 4 07/06/2022 06/14/2023 Misc Natural Products (NEURIVA PO) Take 1 tablet by mouth 2 times daily 06/13/2023 oxyCODONE-acetaminophen (Percocet) 10-325 MG tabletIndications:Cervic al spine tumor Take 1 (one) tablet by mouth every 4 hours as needed 60 tablet 10/27/2022 12/24/2022 oxyCODONE-acetaminophen (Percocet) 5-325 MG tabletIndications:Spinal cord tumor,S/P cervical spinal fusion Take 1 (one) tablet by mouth every 6 hours as needed for Pain 60 tablet 11/19/2022 12/24/2022 pantoprazole EC (Protonix) 40 MG tabletIndications:Gastro esophageal [...] as of this encounter Progress Notes * Heather Hernadez RN - 12/10/2022 11:59 PM CDT 12/24/22 1621 Pain Management Post-procedure questions How are you doing since procedure? able to walk more, reports 90% pain relief Have you gotten pain relief since your procedure? yes What % of pain relief did you get? other Other concerns? No other concerns exist Was pt. referred to physician? Yes (see comment) Were you pleased with your service? yes Phone Call Status Call status Success documented in this encounter H&P Notes * Gerard Gallegos MD - 12/10/2022 11:59 PM CDT Procedure Note H&P Chief complaint: left hip pain HPI: Patient comes back today [...] hip intra-articular steroid injection Gerard Kay MD/PhD Chief Of Surgery Chronic Pain Management documented in this encounter Procedure Notes * Gerard Gallegos MD - 12/10/2022 11:59 PM CDTAssociated Order(s): PAIN MANAGEMENT PROCEDURE TIME PROCEDURE NOTE - LEFT Hip intra-articular steroid injection Primary pain complaint: Hip Pain Pre-procedure diagnosis: Hip arthritis Post-procedure diagnosis: Same Attending staff: Dr. Gerard Kay MD., Ph.D. Marble Setter: MD Ishaan. The procedure and risks were [...] of the john-procedure nursing note. Pain pre-procedure: 8/10 Pain post-procedure: 07/14 Anesthesia: local anesthesia Complications: [...] Emergency Room. IGerard, performed the whole procedure. documented in this encounter Plan of Treatment Upcoming Encounters Date Type Department Care Team (Late st Contact Info) Description 07/25/2024 10:00 AM ATTACHER Office Visit [facility] - Endocrinology [address] [place] [address] Yosi Bustamante MD [address] [place] [address] 2L [place] [address] 07/26/2024 10:00 AM ATTACHER Appointment [facility] [address] [place] [address] Neri Delgado MD [address] [place] [phone] 07/26/2024 10:00 AM ATTACHER Office Visit [facility] - ENT [address] [place] [phone] Myra Farmer, FACILITIES PLANNER [address] [place] [address] 2L [place] [phone] 07/26/2024 11:15 AM ATTACHER Office Visit [facility] - ENT [address] [place] [phone] Neri Delgado MD [address] [place] [address] 08/02/2024 2:20 PM ATTACHER Appointment [facility] [address] [place] [phone] 08/02/2024 3:00 PM ATTACHER Office Visit [facility] - Hematology/Oncology [address] [place] [phone] Remi Beckett MD [address] [place] [phone] 08/18/2024 1:45 PM ATTACHER Office Visit [facility] - ENT [address] [place] [phone] Neri Delgado MD [address] [place] [phone] documented as of this encounter Procedures Procedure Name Priority Date/Time Associated Diagnosis Comments PAIN MANAGEMENT PROCEDURE TIME Routine 12/10/2022 4:03 PM CDT Arthritis of hip documented in this encounter Results * PAIN MANAGEMENT PROCEDURE TIME (12/10/2022 4:03 PM CDT) Anatomical Region Laterality Modality Radio Fluoroscop y Narrative 12/10/2022 11:59 PM CDT Gerard Gallegos MD ? 12/14/2022 ??7:13 AM PROCEDURE NOTE - LEFT Hip intra-articular steroid injection Primary pain complaint: Hip Pain Pre-procedure diagnosis: Hip arthritis Post-procedure diagnosis: Same Attending staff: Dr. Gerard Kay MD., Ph.D. Marble Setter: MD Ishaan. The procedure and risks were [...] documented in this encounter Visit Diagnoses Diagnosis Arthritis of hip Unspecified arthropathy, pelvic region and thigh documented in this encounter Administered Medications Inactive Administered Medications - up to 3 most recent administrations Medication Order MAR Action Action Date Dose Rate Site iopamidol (Isovue M 200) 41 % contrast Intra-articular, INTRA-PROCEDURE ONCE, 1 dose, On Josi 12/10/22 at 1515, Intra-epidural Administer per physician direction. $ Given - Contrast 12/10/2022 3:59 PM CDT 2 mL Left Hip lidocaine HCl (PF) (Xylocaine MPF) 2 % injection Intra-articular, INTRA-PROCEDURE MULTIPLE, Starting on Josi 12/10/22 at 1507, Until Wed12/11/22 at 0133, Administer per physician direction. $ Given 12/10/2022 4:00 PM CDT 5 mL Left Hip lidocaine PF (Xylocaine MPF) 1 % injection Infiltration, INTRA-PROCEDURE MULTIPLE, Starting on Josi 12/10/22 at 1507, Until Wed12/11/22 at 0133, Administer per physician direction. $ Given 12/10/2022 4:00 PM CDT 50 mg triamcinolone acetonide (Kenalog-40) injection 40 mg 40 mg, Intra-articular, INTRA-PROCEDURE ONCE, 1 dose, On Josi 12/10/22 at 1515, Administer per physician direction. May be administered as 80 mg unilaterally once, or 40 mg bilaterally once (2 separate doses). Shake well before using. $ Given 12/10/2022 4:00 PM CDT 40 mg Left Hip documented in this encounter Care Teams Press Cleaner Relationship Specialty Start Date End Date Joseph Manzanares MD [address] [place] [phone] PCP - General Internal Medicine 10/07/22 04/20/23 Adriana Adams DO [address] [place] [address] Resident - PCP Internal Medicine 04/06/22 01/12/23 documented as of this encounter
--- OUTSIDE RECORDS SUMMARY | 2024-07-23 07:10 | XMS_ITS | Encounter Summary ---
Author Organization [facility] Health Address [address] [facility] [place] [address] Care Team Providers Care Brass Pourer Name Role Phone Adriana Adams DO Unavailable Joseph Manzanares MD Primary Care Provider [phone] Reason for Visit * Reason Comments Follow-up Encounter Details Date Type Department Care Team (Late st Contact Info) Description 11/25/2022 3:00 PM CDT Office Visit [facility] - Internal Med [address] [facility], [place] [phone] Adriana Adams DO [address] [place] [address] Preventative health care (Primary Dx); Allergic rhinitis, unspecified seasonality, unspecified trigger Social History Tobacco Use Types Packs/Day Years Used Date Smoking Tobacco: Some Days Cigarettes 0.3 51 Started: 07/22/1973 Smokeless Tobacco: Current Tobacco Cessation:Ready to Q uit: Not Asked Comments:1-2 cigarettes per day current smoker Alcohol [...] Date Recorded PHQ2 TOTAL SCORE 1 11/25/2022 [facility] [place] [facility] - Occupational Stress [...] Sign Reading Time Taken Comments Blood Pressure 104/74 11/25/2022 3:15 PM CDT Pulse 88 11/25/2022 3:15 PM CDT Temperature 36.4 ??C (97.6 ??F) 11/25/2022 3:15 PM CD T Respiratory Rate 16 11/25/2022 3:15 PM CDT Oxygen Saturation 95% 11/25/2022 3:15 PM CDT Inhaled Oxygen Concentration - - Weight 64.9 kg (143 lb) 11/25/2022 3:15 PM CDT Height 160 cm (5' 3) 11/25/2022 3:15 PM CDT Body Mass Index 25.33 11/25/2022 3:15 PM CDT documented in this [...] this encounter Patient Instructions * Patient Instructions* Adriana Adams DO - 11/25/2022 4:50 PM CDT Ms. Hogan, You were seen in the [facility] Internal Medicine clinic for follow-up. Below is a summary of your visit. 1) You are due for a mammogram and colonoscopy. An order has been made for you 2) You are up to date on most everything else. We wish you the best in your treatments. Please let us know if you need anything or have any questions. documented in this encounter Progress Notes * Adriana Adams DO - 11/25/2022 4:03 PM CDT [facility] General Internal Medicine Established Patient Note CC: Chief Complaint Patient presents with ??? Follow-up History of Present Illness: Brisa Hogan is a 62 year old female w/PMHx thyroid cancer presenting to GI clinic for establishing care. - 08/2019 thyroid surgery s/p radioiodine tx - Left shoulder supraspinatus, infraspinatus, subscapularis tears, cervical radiculopathy, R long head biceps tear, needs medical clearance for surgery. - Dr. Marie previous PCP - Mostly sitting, not able to walk due to hip. - 2 tylenol, 2 ibuprofen, celebrex, takes hydrocodone (off the streets) 7.5 mg (half as needed...taken at night) - Reports she drinks a lot of water, but not making enough urine. Sometimes unable to make it to bathroom in time, although notices urinary frequency ( but states not enough urine) - Needs dental clearance as well 08/12/22: - 07/06/22-07/12/22 admitted to [facility] for UTI, oxybutynin rx'd last visit, and urinary incontinence improved , lidocaine patch for hip & shoulder -Pain under control - voltera/peppermint oil improving pain, no longer getting hydrocodone off the streets. - Flexeril x3 days - Started on bupropion for smoking cessation, and now smoking 1 pack every 3-4 days. - Sister - Taryn next to patient. Mammogram not done bc difficulties w/hip and standing. - Shingles shot never done, had chicken pox previously. Encouraged patient to get both. 11/25/22: - Patient reports overall doing well, she is accompanied by sister. Currently undergoing treatment for thryoid cancer, s/p C2-T2 fusion and decompression C3- C7 and resection extramedullary spine tumor. Patient's wound examined and healing well; currently receiving percocet from [facility] - Needs mammogram, colonoscopy, well-woman's exam (orders previously placed); advised patient to get these. Patient reports she will but has had dealings with thyroid cancer, surgery, and left hip pain for which she has been unable to get these procedures. - Requesting refill for flonase - Reports hoarse voice since yesterday Past Medical History: Reviewed and updated in Epic History tab Past Surgical History: Reviewed and updated in Epic History tab Family History: Reviewed and updated in Epic History tab Social History: Reviewed and updated in Epic History tab Medications: Reviewed and updated in Epic Medications tab Allergies: Reviewed and updated in Epic Allergies tab Physical Exam: BP 104/74 (BP SITE: LEFT ARM, BP POSITION: SITTING, BP CUFF SIZE: 11) Pulse 88 Temp 97.6 ??F (36.4 ??C) (Temporal) Resp 16 Ht 1.6 m (5' 3) Wt 64.9 kg (143 lb) SpO2 95% Gen: NAD, conversational, pleasant, cooperative Eyes: EOMI; PERRLA; anicteric, non-injected sclerae Mouth: moist oral mucous membrane; no lesions or sores appreciated; no tonsillar exudates Ears: bilateral TM without erythema or bulging; bilateral external auditory canals without erythema Nose: pink nasal mucosa without drainage Neck: supple with normal ROM; no thyromegaly, no LAD CV: normal S1, S2; RRR; no MRGs appreciated; 2+ radial, DP pulses bilaterally; no LE edema bilaterally Pulm: CTAB; no wheezes or crackles GI: abd soft, NT to palpation; +BS; no HSM, no guarding or rebound MS: tenderness to left shoulder joint, no pain passive range of motion, unable to perform most active ROM Neuro: CN II-XII grossly intact; 5/5 strength in bilateral UE, LE; no focal neurologic deficits Psych: AOx3; calm, congruent affect Skin: no rashes appreciated Labs: Personally reviewed. Notable for CARYL 1.05 (baseline Cr .5-.6) Imaging/Other diagnostic testing: Personally reviewed. Assessment & Plan: # [id number] thyroid cancer (PTC) s/p total thyroidectomy requiring sacrifice of Right RLN/tracheal resection/reanastomosis, bilateral lateral and central neck dissection, and WARD - S/p C2-T2 fusion and decompression C3-C7 and resection extramedullary spine tumor, ??extramedullay tumor at C4,5,6, done 10/2022 Plan: - Follows with endocrine - Receiving percocet from [facility] for recent surgery. Has been taking 1-2 pills at most/day - Planning for radioiodine tx next few weeks # Chronic left shoulder pain - Fell directly onto left shoulder and pain much worse. Medically cleared last visit, surgery next month - Pain controlled currently using, tylenol, celebrex. Notable CARYL on bmp on previous blood work. Advised patient to decrease ibuprofen and celebrex dose, preferably stop ibuprofen altogether. Now using lidocaine patch and topical peppermint oil # Urinary Incontinence - Patient states she's not been urinating enough. Advised patient that she will need to be evaluated immediately if unable to produce urine or having diffculty peeing. Patient states she does pee andactually notes incontinence symptoms - urinating before making it bathroom. Rx'd oxybutynin first visit, patient reports total improvement in symptoms Plan: - Continue oxybutynin - Ob-automobile painter follow-up for well-woman exam. Preventative Care/Health Maintenance: End of life planning: NA Immunizations - Tdap: done - Influenza: done - PPSV23: next visit - PCV13: next visit - Zoster: next visit - HPV: next visit Colorectal cancer screening: next visit Lung cancer screening: next visit HIV, Hep C: next visit Lipid screening: next visit DM screening: next visit Depression screening: next visit Female specific HCM: obgyn referral Cervical cancer screening: as above Breast ca screening: ordered by previous provider Osteoporosis screening: not indicated. Patient discussed with attending physician, Dr. Anaya who agrees with my assessment and plan Return to clinic in 6 months Adriana Adams DO 4:03 PM PGY-3 Internal Medicine Associated attestation - Andria Anaya DO - 12/06/2022 2:36 AM CDT Attending Physician Attestation I discussed the patient and reviewed the resident's note at the time of the visit and I agree with history, physical exam, assessment, and plan. Date of service: 11/25/2022 Andria Anaya DO documented in this encounter Plan of Treatment Upcoming Encounters Date Type Department Care Team (Late st Contact Info) Description 07/25/2024 10:00 AM POWDER BLENDER AND POURER Office Visit [facility] - Endocrinology [facility], [facility] [place] [phone] Yosi Bustamante MD [address] [place] [address] 2L [place] [address] 07/26/2024 10:00 AM POWDER BLENDER AND POURER Appointment [facility] [address] [place] [address] Neri Delgado MD [address] [place] [address] 07/26/2024 10:00 AM POWDER BLENDER AND POURER Office Visit [facility] - ENT [address] [place] [phone] Myra Farmer, FUNERAL PREARRANGEMENT COUNSELOR [address] [place] [address] 2L [place] [phone] 07/26/2024 11:15 AM POWDER BLENDER AND POURER Office Visit [facility] - ENT [address] [place] [phone] Neri Delgado MD [address] [place] [address] 08/02/2024 2:20 PM POWDER BLENDER AND POURER Appointment [facility] [address] [place] [address] 08/02/2024 3:00 PM POWDER BLENDER AND POURER Office Visit [facility] - Hematology/Oncology [address] [place] [phone] Remi Beckett MD [address] [place] [phone] 08/18/2024 1:45 PM POWDER BLENDER AND POURER Office Visit [facility] - ENT [address] [place] [phone] Neri Delgado MD [address] [place] [address] documented as of this encounter Visit Diagnoses Diagnosis Preventative health care- Primary Routine general medical examination at a health care facility Allergic rhinitis, unspecified seasonality, unspecified trigger documented in this encounter Care Teams Brass Pourer Relationship Specialty Start Date End Date Joseph Manzanares MD [address] [place] [phone] PCP - General Internal Medicine 10/07/22 04/20/23 Adriana Adams DO [address] [place] [address] Resident - PCP Internal Medicine 04/06/22 01/12/23 documented as of this encounter
--- OUTSIDE RECORDS SUMMARY | 2024-07-23 07:10 | XMS_ITS | Encounter Summary ---
Author Organization [facility] Health Address [address] [facility] [place] [address] Care Team Providers Care Regulated Program Manager Name Role Phone Joseph Manzanares MD Primary Care Provider [phone] Tiana Naylor DO Unavailable [phone] Reason for Visit * Reason Onset Date Comments MEDICATION REFILL 02/16/2023 Encounter Details Date Type Department Care Team (Late st Contact Info) Description 02/16/2023 Refill [facility] - Internal Med [address] [facility], [place] [address] Tiana Naylor DO [address] [facility] [place], [place] [phone] MEDICATION REFILL Social History Tobacco Use Types [...] Date Recorded PHQ2 TOTAL SCORE 1 11/25/2022 [facility] [place] [facility] Occupat ional Health - Occupational Stress [...] encounter Miscellaneous Notes * Telephone Encounter - Mellisa Vargas LPN - 02/16/2023 8:40 AM CDT Refill Request Brisa Hogan Recent Visits Date Type Provider Dept 11/25/22 Office Visit Adriana Adams DO [facility] 08/12/22 Office Visit Adriana Adams DO [facility] 06/10/22 Office Visit Adriana Adams DO [facility] 12/18/21 Office Visit Wilma Briceño MD [facility] 10/29/21 Office Visit Marylu Marie DO [facility] Showing recent visits within past 540 days with a meds authorizing provider and meeting all other requirements Future Appointments Date Type Provider Dept 06/09/23 Appointment Tiana Naylor DO [facility] Showing future appointments within next 150 days with a meds authorizing provider and meeting all other requirements Last Refill: 05.14.22 Allergies: Allergies Allergen Reactions ??? Kiwi Extract Anaphylaxis Pended Medication Order: Requested Prescriptions Pending Prescriptions Disp Refills ??? atorvastatin (Lipitor) 40 MG tablet 30 tablet 3 Sig: TAKE 1 TABLET BY MOUTH EVERYDAY AT BEDTIME documented in this encounter Plan of Treatment Upcoming Encounters Date Type Department Care Team (Late st Contact Info) Description 07/25/2024 10:00 AM SENIOR HADOOP DEVELOPER Office Visit [facility] - Endocrinology [address] [place] [address], [place] [address] Yosi Bustamante MD [address] [place] [address] 2L [place] [address] 07/26/2024 10:00 AM SENIOR HADOOP DEVELOPER Appointment [facility] [address] [place] [address] Neri Delgado MD [address] [place] [phone] 07/26/2024 10:00 AM SENIOR HADOOP DEVELOPER Office Visit [facility] - ENT [address] [place] [place] [phone] Myra Farmer, SPREADER OPERATOR AUTOMATIC [address] [place] [address] 2L [place] [phone] 07/26/2024 11:15 AM SENIOR HADOOP DEVELOPER Office Visit [facility] - ENT [address] [place] [phone] Neri Delgado MD [address] [place] [phone] 08/02/2024 2:20 PM SENIOR HADOOP DEVELOPER Appointment [facility] [address] [place] [address] 08/02/2024 3:00 PM SENIOR HADOOP DEVELOPER Office Visit [facility] - Hematology/Oncology [address] [place] [phone] Remi Beckett MD [address] [place] [phone] 08/18/2024 1:45 PM SENIOR HADOOP DEVELOPER Office Visit [facility] - ENT [address] [place] [phone] Neri Delgado MD [address] [place] [address] documented as of this encounter Visit Diagnoses Diagnosis Hyperlipidemia, unspecified hyperlipidemia type documented in this encounter Care Teams Regulated Program Manager Relationship Specialty Start Date End Date Joseph Manzanares MD [address] [place] [address] PCP - General Internal Medicine 10/07/22 04/20/23 Tiana Naylor DO [address] [place] [address] Resident - PCP Internal Medicine 01/13/23 04/20/23 documented as of this encounter
--- OUTSIDE RECORDS SUMMARY | 2024-07-23 07:10 | XMS_ITS | Encounter Summary ---
Author Organization [facility] Health Address [address] [place] [address] Care Team Providers Care Shoe Singer Name Role Phone Adriana Adams DO Unavailable Joseph Manzanares MD Primary Care Provider [phone] Reason for Visit * Reason Comments Refill Request Encounter Details Date Type Department Care Team (Late st Contact Info) Description 10/28/2022 Refill [facility], Diabetes and Metabolism [address] [place] [address], [facility] [phone] Yosi Bustamante MD [address] [place] [address] of [place], [place] [phone] Refill Request Social History Tobacco Use Types [...] Date Recorded PHQ2 TOTAL SCORE 0 09/02/2022 [facility] of Occupat ional Health [...] Miscellaneous Notes * Telephone Encounter - Esther Matson LPN - 10/28/2022 11:14 AM CDT Script was for 20 days !! Refill Request Brisa Hogan ELE: 07/02/22 NOV scheduled: 11/02/2022 LRF:07/05/19 Qty Disp: 40 # of refills:0 Allergies: Allergies Allergen Reactions Kiwi Extract Anaphylaxis Pended Medication Order: Requested Prescriptions Pending Prescriptions Disp Refills liothyronine (Cytomel) 25 MCG tablet [Pharmacy Med Name: LIOTHYRONINE SOD 25 MCG TAB] 40 tablet 0 Sig: TAKE 1 TABLET BY MOUTH TWICE A DAY FOR 20 DAYS STARTING 07-05-22 AND END ON 07-25-22 documented in this encounter Plan of Treatment Upcoming Encounters Date Type Department Care Team (Late st Contact Info) Description 07/25/2024 10:00 AM INSTRUMENT REPAIR TECHNICIAN Office Visit [facility] - Endocrinology [address] [place] [address], [facility] [phone] Yosi Bustamante MD [address] [place] [address] of [place] [address] 07/26/2024 10:00 AM INSTRUMENT REPAIR TECHNICIAN Appointment [facility] [address] [place] [phone] Neri Delgado MD [address] [place] [address] 07/26/2024 10:00 AM INSTRUMENT REPAIR TECHNICIAN Office Visit [facility] - ENT [address] [place] [phone] Myra Farmer, BOTTOM POLISHER [address] [place] [address] [place] [phone] 07/26/2024 11:15 AM INSTRUMENT REPAIR TECHNICIAN [facility] [address] [place] [phone] Neri Delgado MD [address] [place] [address] 08/02/2024 2:20 PM INSTRUMENT REPAIR TECHNICIAN Appointment [facility] [address] [place] [address] 08/02/2024 3:00 PM INSTRUMENT REPAIR TECHNICIAN Office Visit [facility] - Hematology/Oncology [address] [place] [phone] Remi Beckett MD [address] [place] [phone] 08/18/2024 1:45 PM INSTRUMENT REPAIR TECHNICIAN Office Visit [facility] - ENT [address] [place] [phone] Neri Delgado MD [address] [place] [address] documented as of this encounter Visit Diagnoses Diagnosis Postoperative hypothyroidism Postsurgical hypothyroidism Thyroid cancer (HCC) Malignant neoplasm of thyroid gland Hypocalcemia Other hypoparathyroidism (HCC) documented in this encounter Care Teams Shoe Singer Relationship Specialty Start Date End Date Joseph Manzanares MD [address] [place] [phone] PCP - General Internal Medicine 10/07/22 04/20/23 Adriana Adams DO [address] [place] [address] Resident - PCP Internal Medicine 04/06/22 01/12/23 documented as of this encounter
--- OUTSIDE RECORDS SUMMARY | 2024-07-23 07:10 | XMS_ITS | Encounter Summary ---
Author Organization [facility] Health Address [address] [facility] [place] [address] Care Team Providers Care Environmental Health Nurse Name Role Phone Adriana Adams DO Unavailable Joseph Manzanares MD Primary Care Provider [phone] Encounter Details Date Type Department Care Team (Latest Contact Info) Description 11/19/2022 1:45 PM CDT Office Visit [facility] - Neurosurgery [address] [facility], [place] [phone] Merle Parker, DINING ROOM HOST/HOSTESS-SUPERVISOR [employer] [facility] [place] [address] Spinal cord tumor (Primary Dx); Fusion of spine, cervicothoracic region Social History Tobacco Use Types Packs/Day Years Used Date Smoking Tobacco: Former Cigarettes 0.3 51 S tarted: 07/22/1973 Smokeless Tobacco: Never Tobacco Cessation:Counseling Given: Not Answered Comments:1-2 cigarettes per day [...] Date Recorded PHQ2 TOTAL SCORE 0 09/02/2022 [facility] of Occupat ional Health - Occupational Stress [...] Sign Reading Time Taken Comments Blood Pressure 108/75 11/19/2022 1:43 PM CDT Pulse 102 11/19/2022 1:43 PM CDT Temperature 36.2 ??C (97.2 ??F) 11/19/2022 1:43 PM CD T Respiratory Rate - - Oxygen Saturation 98% 11/19/2022 1:43 PM CDT Inhaled Oxygen Concentration - - Weight 63.5 kg (140 lb) 11/19/2022 1:43 PM CDT Height 160 cm (5' 3) 11/19/2022 1:43 PM CDT Body Mass Index 24.8 11/19/2022 1:43 PM CDT documented in this encounter Functional [...] this encounter Patient Instructions * Patient Instructions* Merle Parker APRN-CNP - 11/19/2022 1:54 PM CDT Continue to follow up with medical and radiation oncology teams Follow up with Dr. 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 The patient described neck pain that radiated into both shoulders, left arm numbness, and difficulty controlling her left hand. MRI cervical spine demonstrated osseous metastasis in the left aspect of the C5 and C6 vertebrae with tumor extension into the epidural space and left neural foramina from C4-5 to C6-7 and possible encasement/abutment of the left vertebral artery. The patient presented to [facility] for elective C2-T2 fusion and decompression C3-C7 and resection extramedullary spine tumor on 10/02/[address] Gómez, without incident. Pathology was consistent with Metastatic carcinoma. She is presenting to clinic today for follow up. The patient reports doing overall well. She continues to endorse some neck pain/stiffness, left arm weakness, and left arm numbness since surgery. Patient is managing pain with muscle relaxants and percocet, which helps. She has completed home health PT/OT and is starting outpatient therapies in the near future. Patient denies any radicular pain, changes in bowel/bladder function, or new weakness. She is following closely with oncology and radiation oncology with an MRI scheduled next month. PMH: Past Medical History: Diagnosis Date ??? Anxiety [...] Thyroid cancer (CMS/HCC) 10/14/2020 ??? Tracheal mass PSH: Past Surgical History: Procedure Laterality Date ??? [...] DIRECT LARYNGOSCOPY WITH BIOPSY ??? Polypectomy cervical Meds: Current Outpatient Medications Medication ??? acetaminophen (TYLENOL) 500 MG tablet ??? atorvastatin (Lipitor) 40 MG tablet ??? B Complex Vitamins (B COMPLEX 1 PO) ??? buPROPion SR 12hr (Wellbutrin-SR) 100 MG tablet ??? calcitriol (Rocaltrol) 0.5 MCG capsule ??? HWALTWB-YSYRJEUFS-AYWM PO ??? celecoxib (CeleBREX) 200 MG capsule ??? cetirizine (ZYRTEC) 10 MG tablet ??? clonazePAM (KLONOPIN) 0.5 MG tablet ??? cyclobenzaprine (Flexeril) 5 MG tablet ??? famotidine (PEPCID) 20 MG tablet ??? fish oil/omega-3 fatty acids (PROMEGA;CARDI-OMEGA 3) 1000 MG capsule ??? fluticasone propionate (FLONASE) 50 MCG/ACT nasal spray ??? gabapentin (Neurontin) 300 MG capsule ??? OTBQLO-IRZARYMUG-GWX-C-HYAL PO ??? levothyroxine (Synthroid) 112 MCG tablet ??? Misc Natural Products (NEURIVA PO) ??? oxybutynin CR 24hr (Ditropan-XL) 5 MG tablet ??? oxyCODONE-acetaminophen (Percocet) 10-325 MG tablet ??? pantoprazole EC (Protonix) 40 MG tablet ??? PARoxetine (PAXIL) 40 MG tablet ??? senna (Senokot Extra Strength) 17.2 MG ??? traZODone (DESYREL) 50 MG tablet ??? vitamin E (TOCOPHERYL) 200 UNIT capsule No current facility-administered medications for this visit. Allergies Allergies Allergen Reactions ??? Kiwi Extract Anaphylaxis Social: Social History Tobacco Use ??? Smoking status: Former Packs/day: 0.25 Years: 40.00 Pack years: 10.00 Types: Cigarettes Start date: 07/22/1973 ??? Smokeless tobacco: Never ??? Tobacco comments: 1-2 cigarettes per day current smoker Vaping Use ??? Vaping status: Never Used Substance Use Topics ??? Alcohol use: No Family: Family History Problem Relation Name Age of [...] Thyroid Disease Neg Hx REVIEW OF SYSTEMS Pertinent items are noted in HPI. PHYSICAL EXAM BP 108/75 Pulse 102 Temp 97.2 ??F (36.2 ??C) (Temporal) Ht 1.6 m (5' 3) Wt 63.5 kg (140 lb) SpO2 98% General: No acute distress. HEENT: pupils equal and reactive to light, extra-occular muscles intact, face symmetric, tongue midline. Cardiovascular: warm, well profused Respiratory: non-labored breathing Integument: no lesions found. Posterior cervical incision is well healed. No erythema, edema, or drainage noted. Neuro: Mental status: Alert, attentive, and oriented x3 (name, place, date). Speech is clear and fluent. Motor: Muscle bulk and tone are normal. Deltoid Bicep Tricep Laboratory Helper Wrist Ext Finger ext Hip Flexor Quad Hamstring Tib Ant Gastroc EHL Right 5 5 5 5 5 5 5 5 5 5 5 5 Left 0 1 1 5- 5 5 4 5 5 5 5 5 Reflexes: No Clonus, No Smith's Biceps Triceps Patellar Achilles Right 2+ 2+ 2+ 1+ Left 0 1+ 2+ 1+ Sensory: Light touch intact in upper and lower extremities Coordination: No fasciculations Gait/Stance: Posture is normal. Slow gait with walker RADIOLOGY: No new neuroradiological imaging for review. Assessment/Plan: Brisa Hogan is a 62 year old female with a history of metastatic??high risk papillary thyroid cancer (hH1hH9hKt - IVb) with metastasis to the spine s/p??C2- T2 PSF with laminectomy C3-C7 for partial resection of extramedullary tumor on 10/02/2022, presenting today for follow up. The patient is doing well and voices no new concerns. She continues to have numbness and weakness in her LUE, which s he feels has improved some with PT/OT. Her incisions is well healed. Recommend patient continue with outpatient therapies. Pain medications refilled today. She is following closely with medical and radiation oncology. We will plan to follow up with Dr. Gómez as scheduled in January. CODY Delgado 11/19/2022 2:08 PM documented in this encounter Plan of Treatment Upcoming Encounters Date Type Department Care Team (Late st Contact Info) Description 07/25/2024 10:00 AM ASBESTOS SURVEYOR [facility] End[facility] [address] [place] [phone] Yosi Bustamante MD [address] [place] [address] [place] [address] 07/26/2024 10:00 AM ASBESTOS SURVEYOR Appointment [facility] [address] [place] [phone] Neri Delgado MD [address] [place] [address] 07/26/2024 10:00 AM ASBESTOS SURVEYOR Office Visit [facility] - ENT [address] [place] [phone] Myra Farmer, BILL RECAPITULATION CLERK [address] [place] [address] 2L [facility] [place] [phone] 07/26/2024 11:15 AM ASBESTOS SURVEYOR [facility] [address] [place] [phone] Neri Delgado MD [address] [place] [address] 08/02/2024 2:20 PM ASBESTOS SURVEYOR Appointment [facility] [address] [place] [address] 08/02/2024 3:00 PM ASBESTOS SURVEYOR Office Visit [facility] - Hematology/Oncology [address] [place] [phone] Remi Beckett MD [address] [place] [phone] 08/18/2024 1:45 PM ASBESTOS SURVEYOR [facility] [address] [place] [address] [phone] Neri Delgado MD [address] [place] [address] documented as of this encounter Visit Diagnoses Diagnosis Spinal cord tumor- Primary 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
--- OUTSIDE RECORDS SUMMARY | 2024-07-23 07:10 | XMS_ITS | Encounter Summary ---
Author Organization [facility] Health Address [address] [place] [address] Care Team Providers Care Public Relations Counselor Name Role Phone Adriana Adams DO Unavailable Joseph Manzanares MD Primary Care Provider [phone] Encounter Details Date Type Department Care Team (Latest Contact Info) Description 10/27/2022 Travel Social History Tobacco Use Types Packs/Day [...] Date Recorded PHQ2 TOTAL SCORE 0 09/02/2022 [facility] of Occupat ional Health - Occupational Stress [...] st Contact Info) Description 07/25/2024 10:00 AM TELEHEALTH DIRECTOR Office Visit [facility] - Endocrinology [address] [place] [phone] Yosi Bustamante MD [address] [place] [address] 2L Div [place] [address] 07/26/2024 10:00 AM TELEHEALTH DIRECTOR Appointment [facility] [address] [place] [address] Neri Delgado MD [address] [place] [address] 07/26/2024 10:00 AM TELEHEALTH DIRECTOR Office Visit [facility] - ENT [address] [place] [phone] Myra Farmer, GROUP INSURANCE SPECIALIST [address] [place] [address] 2L [place] [phone] 07/26/2024 11:15 AM TELEHEALTH DIRECTOR Office Visit [facility] [address] [place] [phone] Neri Delgado MD [address] [place] [address] 08/02/2024 2:20 PM TELEHEALTH DIRECTOR Appointment [facility] [address] [place] [address] 08/02/2024 3:00 PM TELEHEALTH DIRECTOR Office Visit [facility] - Hematology/Oncology [address] [place] [phone] Remi Beckett MD [address] [place] [phone] 08/18/2024 1:45 PM TELEHEALTH DIRECTOR Office Visit [facility] [address] [place] [phone] Neri Delgado MD [address] [place] [address] documented as of this encounter Visit Diagnoses Not on filedocumented in this encounter Care Teams Public Relations Counselor Relationship Specialty Start Date End Date Joseph Manzanares MD [address] [place] [phone] PCP - General Internal Medicine 10/07/22 04/20/23 Adriana Adams DO [address] [place] [phone] Resident - PCP Internal Medicine 04/06/22 01/12/23 documented as of this encounter
--- OUTSIDE RECORDS SUMMARY | 2024-07-23 07:10 | XMS_ITS | Encounter Summary ---
Author Organization [facility] Health Address [address] [facility] [place] [address] Care Team Providers Care Short Piece Handler Name Role Phone Adriana Adams DO Unavailable Joseph Manzanares MD Primary Care Provider [phone] Encounter Details Date Type Department Care Team (Latest Contact Info) Description 11/02/2022 12:10 PM CDT - 11/02/2022 11:59 PM T Hospital Encounter [facility] DRAW [facility] [address] [place] [phone] Discharge Disposition: Home or Self Care Social [...] Date Recorded PHQ2 TOTAL SCORE 0 09/02/2022 [facility] [place] of Occupat ional Health - Occupational Stress [...] mouth once daily 90 capsule 3 10/27/2022 famotidine (PEPCID) 20 MG tablet Take 1 (one) tablet by mouth 2 times daily as needed 05/27/2020 oxybutynin CR 24hr (Ditropan-XL) 5 MG tablet [...] A DAY 60 capsule 11 02/22/2022 05/28/2023 JCKPCMA-DCLENXPSG-APWF PO Take by mouth once daily 06/13/2023 cetirizine (ZYRTEC) 10 MG tabletIndications:Allerg ic rhinitis, unspecified seasonality, unspecified trigger Take 1 (one) tablet by mouth once daily 30 tablet 5 11/11/2021 06/13/2023 clonazePAM (KLONOPIN) 0.5 MG tablet Take 1.5 (one and one-half) tablets by mouth once daily 10/29/2021 06/14/2023 cyclobenzaprine (Flexeril) 5 MG tablet Take 1 (one) tablet by mouth 3 times daily as needed (muscle spasms) 90 tablet 08/03/2022 11/19/2022 fish oil/omega-3 fatty acids (PROMEGA;CARDI-OMEGA 3) 1000 MG capsule Take 1 (one) capsule by mouth 3 times daily with meals 06/13/2023 fluticasone propionate (FLONASE) 50 MCG/ACT nasal spray [place] 2 (two) sprays into each nostril once daily 48 g 10/20/2021 11/25/2022 gabapentin (Neurontin) 300 MG capsuleIndications:Prima ry osteoarthritis of left hip Take 1 (one) capsule by mouth 3 times daily 90 capsule 5 04/06/2022 11/19/2022 GLEVCH-MIBEBHHLO-ZZH-C-H YAL PO Take 1 tablet by mouth [...] hours as needed 60 tablet 10/27/2022 12/24/2022 pantoprazole EC (Protonix) 40 MG tabletIndications:Gastro [...] st Contact Info) Description 07/25/2024 10:00 AM SHEET CATCHER Office Visit [facility] - Endocrinology [address] [place] [address], [place] [address] Yosi Bustamante MD [address] [place] [address] [place] [address] 07/26/2024 10:00 AM SHEET CATCHER Appointment [facility] [address] [place] [phone] Neri Delgado MD [address] [place] [address] 07/26/2024 10:00 AM SHEET CATCHER Office Visit [facility] - ENT [address] [place] [address] [phone] Myra Farmer, SCIENTIFIC AIDE [address] [place] [address] [place] [phone] 07/26/2024 11:15 AM SHEET CATCHER Office Visit [facility] - ENT [address] [place] [phone] Neri Delgado MD [address] [place] [address] 08/02/2024 2:20 PM SHEET CATCHER Appointment [facility] [address] [place] [address] 08/02/2024 3:00 PM SHEET CATCHER Office Visit [facility] - Hematology/Oncology [address] [place] [address] [phone] Remi Beckett MD [address] [place] [phone] 08/18/2024 1:45 PM SHEET CATCHER Office Visit [facility] - ENT [address] [place] [phone] Neri Delgado MD [address] [place] [address] documented as of this encounter Procedures Procedure Name Priority Date/Time Associated Diagnosis Comments TSH REFLEX FREE T4 Routine 11/02/2022 12 :46 PM CDT Pre-op testing NICOTINE + METABOLITES BLOOD Routine 11/02/2022 12:46 PM CDT Pre-op testing THYROGLOBULIN REFLEX PROFILE Routine 11/02/2022 12:44 PM CDT Postoperative hypothyroidism Thyroid cancer (HCC) Hypocalcemia Other hypoparathyroidism (CMS/HCC) THYROGLOBULIN BY ANTONIETA RFLXED Routine 11/02/2022 12:44 PM CDT Postoperative hypothyroidism Thyroid cancer (HCC) Hypocalcemia Other hypoparathyroidism (CMS/HCC) documented in this encounter Results * NICOTINE + METABOLITES BLOOD (11/02/2022 12:46 PM CDT) Nicotine <5 ng/mL 11/06/2022 12:39 AM CDT [employer] ([facility]) Comment: INTERPRETIVE INFORMATION: Nicotine and Metabolites, ?Serum [...] developed and its performance characteristics determined by [facility]. It has not been cleared or approved by the US Food and Drug Administration. This test was performed in a CLIA certified laboratory and is intended for clinical purposes. Performed By: [facility] [address] [place] [id number] Roll Plugger Machine Operator: Devaughn Dacosta MD, PhD Cotinine 128 ng/mL 11/06/2022 12:39 AM CDT [employer] ([facility]) Comment: Consistent with use of a nicotine-containing product within 1 week of specimen collection. ??Cotinine is the major metabolite of nicotine. ??The half-life of cotinine is approximately 16 hours. Blood BLOOD SPECIMEN / Unknown Lab Venipuncture / Unknown 11/02/2022 12:46 PM CDT 11/02/2022 1:20 PM CDT Yosi Bustamante MD LAB - CHEMISTRY ORD ERABLES Performing Organization Address City/[facility]/ZIP Co de Phone Number [facility]) [address] * TSH REFLEX FREE T4 (11/02/2022 12:46 PM CDT) TSH 1.600 0.350 - 4.940 uIU/mL 11/02/2022 2:12 PM CDT [facility] Blood BLOOD SPECIMEN / Unknown Lab Venipuncture / Unknown 11/02/2022 12:46 PM CDT 11/02/2022 1:25 PM CDT Yosi Bustamante MD LAB - CHEMISTRY ORD ERABLES Performing Organization Address City/[facility]/ZIP Co de Phone Number [facility] [address] [place] [address], [facility] [phone] * (ABNORMAL) THYROGLOBULIN BY ANTONIETA RFLXED (11/02/2022 12:44 PM CDT) Thyroglobulin by ANTONIETA 65.1(H) 1.5 - 38.5 ng/mL 11/03/2022 7:08 PM CDT [facility] ([facility]) Comment: According to the National Academy of [...] / Unknown Lab Venipuncture / Unknown 11/02/2022 12:44 PM CDT 11/02/2022 1:20 PM CDT Narrative [facility] ([facility]) - 11/03/2022 7:08 PM CDT Performed at: ??01 - [address] ??[id number] [employer] Cal[employer]: Oral Melendez PhD, Phone: ??[phone] Yosi Bustamante MD LAB - CHEMISTRY ORD ERABLES [facility] ([facility]) [address] [place] [address], [facility] * THYROGLOBULIN REFLEX PROFILE (11/02/2022 12:44 PM CDT) Thyroglobulin Antibody <1.0 0.0 - 0.9 IU/mL 11/03/2022 7:08 PM CDT [facility] ([facility]) Comment:Thyroglobulin Antibo dy measured by [facility] [place] [employer] Blood BLOOD SPECIMEN / Unknown Lab Venipuncture / Unknown 11/02/2022 12:44 PM CDT 11/02/2022 1:20 PM CDT Narrative [facility] ([facility]) - 11/03/2022 7:08 PM CDT Performed at: ??[address] - [address] ??[id number] [employer]: Oral Melendez PhD, Phone: ??[phone] Yosi Bustamante MD LAB - CHEMISTRY ORD ERABLES [facility]) [address] [place] [address], [facility] documented in this encounter Visit Diagnoses Diagnosis Pre-op testing- Primary Preoperative examination, unspecified Postoperative hypothyroidism Postsurgical hypothyroidism Thyroid cancer (HCC) Malignant neoplasm of thyroid gland Hypocalcemia Other hypoparathyroidism (HCC) documented in this encounter Care Teams Short Piece Handler Relationship Specialty Start Date End Date Joseph Manzanares MD [address] [place] [phone] PCP - General Internal Medicine 10/07/22 04/20/23 Adriana Adams DO [address] [place] [phone] Resident - PCP Internal Medicine 04/06/22 01/12/23 documented as of this encounter
--- OUTSIDE RECORDS SUMMARY | 2024-07-23 07:10 | XMS_ITS | Encounter Summary ---
Author Organization [facility] Address [address] [facility] [place] [address] Care Team Providers Care Campus Interviews Intern Name Role Phone Adriana Adams DO Unavailable Joseph Manzanares MD Primary Care Provider Reason for Visit * Reason Comments Thyroid Problem Thyroid cancerHypoth yroidism Encounter Details Date Type Department Care Team (Latest Contact Info) Description 11/02/2022 10:20 AM CDT Office Visit [facility] Endocrinology, Diabetes and Metabolism [address] [place] [address], [place] [phone] Yosi Bustamante MD [address] [place] [address] of Endocrinology [place], [place] [phone] Postoperative hypothyroidism (Primary Dx); Thyroid cancer (HCC); Hypocalcemia; Other hypoparathyroidism (CMS/HCC) Social History Tobacco Use Types Packs/Day Years [...] Date Recorded PHQ2 TOTAL SCORE 0 09/02/2022 [facility] of Occupat [...] Sign Reading Time Taken Comments Blood Pressure 99/67 11/02/2022 10:47 AM CDT Pulse 89 11/02/2022 10:47 AM CDT Temperature 37 ??C (98.6 ??F) 11/02/2022 10:47 AM CDT Respiratory Rate 18 11/02/2022 10:47 AM CDT Oxygen Saturation 100% 11/02/2022 10:47 AM CDT Inhaled Oxygen Concentration - - Weight 65.5 kg (144 lb 6.4 oz) 11/02/2022 10:47 AM CDT Height 157.5 cm (5' 2) 11/02/2022 10:47 AM CDT Body Mass Index 26.41 11/02/2022 10:47 AM CDT documented in this encounter Functional [...] * Patient Instructions* Yosi Bustamante MD - 11/02/2022 11:17 AM CDT BP 99/67 (BP SITE: RIGHT ARM, BP POSITION: SITTING, BP CUFF SIZE: 12) Pulse 89 Temp 98.6 ??F (37 ??C) Resp 18 Ht 1.575 m (5' 2) Wt 65.5 kg (144 lb 6.4 oz) SpO2 100% How to Contact Us Between Office Visits Please make your follow up appointment before you leave the office today. If you are unable to makethe appointment today, please contact us at [phone]. To make an appointment: Please call us at [phone], option 1. To requesting refills or leaving a message for your doctor, Please call [phone], option 2. This is the option to speak to a nurse if they are available. We request that all prescription refills be requested during regular office phone hours. Phone lines are open from 8:00 am to 4:30 pm Wednesday through Wednesday. Our fax number is [phone]. After hours urgent calls that cannot wait untill phone lines are open on the next are given to the Endocrine physician cash applications clerk. Please call [phone] and identify yourself as a patient in our practice with your doctor's name. The chopping machine operator will contact the physician cash applications clerk. You can g enerally expect a return call within 30 minutes. On weekends, physicians are seeing hospitalized patients and there may be a longer wait. Test and laboratory results: Our practice typically reports lab and test results through letters orMYChart, the [employer] online patient portal. Please allow 5 days from when your tests are completed to receive the results. Visit our website at [email or web address] for additional information about [employer] and an interactive health encyclopedia. PLAN THYROID/NECK ULTRASOUND TODAY LAB TODAY RETURN [...] TO SURGERY THEN TO TALK TO DR GALLEGOS documented in this encounter Progress Notes * Yosi Bustamante MD - 11/02/2022 10:20 AM CDT I HAVE SEEN AND EXAMINED THE PATIENT WITH THE ENDOCRINE FELLOW AND I AGREE WITH THE FINDINGS AND PLAN OF CARE DOCUMENTED BY THE ENDOCRINE FELLOW DATE OF SERVICE 11/02/2022 Signed electronically Yosi Bustamante MD Professor of Internal Medicine HISTORY / PROGRESS NOTE Date: 11/02/2022 Chief Complaint or Purpose for Referral: THYROID CANCER HYPOTHYROIDISM S/P THYROIDECTOMY S/P EXTERNAL BEAM RADIATION THERAPY(two treatments) S/P SPINAL SURGERY, SEE BELOW History of Present Illness: 62 YEAR OLD WHITE FEMALE ELE 07/02/2022 dysphagia(+) No dyspnea No dysphonia No change size of neck No neck pain or discomfort No nervousness No shakiness No palpitations Weight stable since last visit Wt Readings from Last 3 Encounters: 11/02/22 65.5 kg (144 lb 6.4 oz) 10/21/22 65.8 kg (145 lb) 10/02/22 63.7 kg (140 lb 6.4 oz) BM daily No diarrhea No constipation nocturia THREE TIMES per night No edema No proximal muscle weakness Getting PT and OT DECREASED APPETITE (+) NO NAUSEA NO VOMITING FOOD GETS CAUGHT WHEN SWALLOWING (+) HAS TO SIT UP TO DRINK LIQUIDS SWALLOWING PART SINCE NECK SURGERY STILL HAS NEED FOR LEFT HIP SURGERY PAIN IN LEFT SHOULDER GONE AFTER C SPINE SURGERY LEFT ARM WEAKNESS GETTING PT AND OT FOR THIS LAB Latest Reference Range & Units 05/01/22 13:17 07/02/22 12:44 08/07/22 12:58 08/07/22 12:59 08/14/22 15:21 08/21/22 14:58 TSH 0.350 - 4.940 uIU/mL 0.769 1.008 165.839 (H) 208.891 (H) T4 Free 0.7 - 1.5 ng/dL 1.2 <0.4 (L) <0.4 (L) Thyroglobulin by ANTONIETA ng/mL 151.8 (H) 205.9 (H) 383.0 (H) 629.0 (H) TNP Thyroglobulin Antibody 0.0 - 0.9 IU/mL <1.0 <1.0 <1.0 <1.0 <1.0 [facility] Reference Range & Units 03/19/21 11:20 03/21/21 10:47 10/08/21 16:37 10/24/21 15:04 12/08/21 09:12 03/19/22 12:31 PTH Intact 8.0 - 77.0 pg/mL 8.0 - 77.0 pg/mL 53.9 42.1 40.5 TSH 0.350 - 4.940 uIU/mL 139.797 (H) <0.010 (L) <0.010 (L) <0.010 (L) 0.261 (L) T4 Free 0.7 - 1.5 ng/dL 1.4 1.1 1.4 1.2 1.1 Thyroglobulin by ANTONIETA 1.5 - 38.5 ng/mL 7.9 8.4 17.9 26.9 71.9 (H) Thyroglobulin Antibody 0.0 - 0.9 IU/mL <1.0 <1.0 <1.0 <1.0 <1.0 NUC MED PROCEDURE: NM THYROID WHOLE BODY SCAN, NM TUMOR LOCAL SPECT CT, DATE/TIME OF EXAM: 08/19/2022 3:24 PM, LOCATION [facility] INDICATION: E89.0: Postoperative hypothyroidism C73: [...] Dr. Sy on 08/19/2022 at 3:35 PM. 08/21/2022 MRI IMPRESSION: 1.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 of the C5 and C6 vertebrae, corresponding to the findings of recent whole body thyroid scan. 2.Tumor extension into the epidural space and left neural foramina from C4-5 to C6-7. Possible encasement/abutment of the left vertebral artery by the tumor at these levels. 3.Moderate spinal canal stenosis at C5 and C6 levels with spinal cord compression. No demonstrated cord edema. ?? 10/02/2022 Collected 10/02/2022 ??9:59 AM ?? Status: Final result ?? Visible to patient: No (not released) ?? Dx: Cervical spine tumor ?? 0 Result Notes Component Final Diagnosis Spinal cord, extradural tumor, resection (A): - Metastatic carcinoma. - See comment. Spinal cord, extradural tumor, resection (B): - Metastatic carcinoma. - See comment. Comment: The histopathological and immunohistochemical features of this tumor, along with the patient's history, are compatible with a metastatic thyroid carcinoma. at ??1:13 PM Latest Reference Range & Units 10/07/22 00:12 Sodium 136 - 145 mmol/L 143 Potassium 3.5 - 4.5 mmol/L 3.8 Chloride 98 - 107 mmol/L 106 CO2 22 - 29 mmol/L 25 Anion Gap 8 - 18 16 BUN 7 - 26 mg/dL 15 Creatinine 0.56 - 0.96 mg/dL 0.56 eGFR >=90 mL/min/1.73 m2 >90 Glucose 70 - 115 mg/dL 92 Calcium 8.4 - 10.2 mg/dL 9.0 Magnesium 1.6 - 2.6 mg/dL 1.7 Phosphorus 2.9 - 5.1 mg/dL 5.3 (H) BUN/Creatinine Ratio 7 - 23 27 (H) Osmolality Calculated 270 - 300 mOsm/kg 296 (H): Data is abnormally high (Brief 1-3; Ext. >4) Past Medical History: [...] No date: SOB (shortness of breath) Comment: 2/2 thyroid mass 10/14/2020: Thyroid cancer (CMS/HCC) No [...] Not on file Tobacco Use Smoking status: Former Packs/day: 0.25 Years: 40.00 Pack years: 10 Types: Cigarettes Start date: 07/22/1973 Smokeless tobacco: Never Tobacco comments: 1-2 cigarettes per day current smoker Vaping Use Vaping status: Never Used Substance and Sexual Activity Alcohol use: No [...] Never true Transportation Needs: No Transportation Needs (10/02/2022) ? PRAPARE - Transportation ? Lack of Transportation (Medical): No ? Lack of Transportation (Non-Medical): No Stress: No Stress Concern Present (10/02/2022) ? [place] [place] [facility] Occupational Health - Occupational Stress Questionnaire ? Feeling of Stress : Not at all Housing Stability: Low Risk (10/02/2022) ? Housing Stability Vital Sign ? Unable to Pay for Housing in the Last Year: No ? Number of Places Lived in the Last Year: 1 ? Unstable Housing in the Last Year: No Current Outpatient Medications: acetaminophen (TYLENOL) 500 MG tablet, Take 2 (two) tablets by mouth every 6 hours as needed Reasons: Pain, Disp: , Rfl: atorvastatin (Lipitor) 40 MG tablet, TAKE 1 TABLET BY MOUTH EVERYDAY AT BEDTIME, Disp: 30 tablet, Rfl: 3 B Complex Vitamins (B COMPLEX 1 PO), Take by mouth once daily (Patient not taking: Reported on 10/02/2022), Disp: , Rfl: buPROPion SR 12hr (Wellbutrin-SR) 100 MG tablet, Take 1 (one) tablet by mouth 2 times daily, Disp: , Rfl: calcitriol (Rocaltrol) 0.5 MCG capsule, TAKE 1 CAPSULE BY MOUTH TWICE A DAY, Disp: 60 capsule, Rfl:11 GEJIOZR-CLSYLUMAR-GILK PO, Take by mouth once daily, Disp: , Rfl: celecoxib (CeleBREX) 200 MG capsule, Take 1 (one) capsule by mouth once daily, Disp: 90 capsule, Rfl: 3 cetirizine (ZYRTEC) 10 MG tablet, Take 1 (one) tablet by mouth once daily, Disp: 30 tablet, Rfl: 5 clonazePAM (KLONOPIN) 0.5 MG tablet, Take 1.5 (one and one-half) tablets by mouth once daily, Disp:, Rfl: cyclobenzaprine (Flexeril) 5 MG tablet, Take 1 (one) tablet by mouth 3 times daily as needed (muscle spasms), Disp: 90 tablet, Rfl: 0 famotidine (PEPCID) 20 MG tablet, Take 1 (one) tablet by mouth 2 times daily as needed, Disp: , Rfl: fish oil/omega-3 fatty acids (PROMEGA;CARDI-OMEGA 3) 1000 MG capsule, Take 1 (one) capsule by mouth3 times daily with meals, Disp: , Rfl: fluticasone propionate (FLONASE) 50 MCG/ACT nasal spray, [place] 2 (two) sprays into each nostril once daily, Disp: 48 g, Rfl: 0 gabapentin (Neurontin) 300 MG capsule, Take 1 (one) capsule by mouth 3 times daily, Disp: 90 capsule, Rfl: 5 ZNQZMU-CYKGGAWQF-KLL-C-HYAL PO, Take 1 tablet by mouth 3 times daily, Disp: , Rfl: levothyroxine (Synthroid) 112 MCG tablet, TAKE 1 TABLET BY MOUTH EVERY DAY, Disp: 90 tablet, Rfl: 4 Misc Natural Products (NEURIVA PO), Take 1 tablet by mouth 2 times daily, Disp: , Rfl: oxybutynin CR 24hr (Ditropan-XL) 5 MG tablet, Take 1 (one) tablet by mouth once daily, Disp: 90 tablet, Rfl: 4 oxyCODONE-acetaminophen (Percocet) 10-325 MG tablet, Take 1 (one) tablet by mouth every 4 hours as needed, Disp: 60 tablet, Rfl: 0 pantoprazole EC (Protonix) 40 MG tablet, TAKE ONE TABLET BY MOUTH ONCE DAILY FOR STOMACH, Disp: 90 tablet, Rfl: 0 PARoxetine (PAXIL) 40 MG tablet, Take 1 (one) tablet by mouth once daily, Disp: , Rfl: 2 senna (Senokot Extra Strength) 17.2 MG, Take 17.2 mg by mouth once daily, Disp: 30 tablet, Rfl: 1 traZODone (DESYREL) 50 MG tablet, Take 1 (one) tablet by mouth at bedtime, Disp: , Rfl: vitamin E (TOCOPHERYL) 200 UNIT capsule, Take 1 (one) capsule by mouth 3 times daily, Disp: , Rfl: No current facility-administered medications for this visit. -- Kiwi Extract -- Anaphylaxis Physical Exam: Constitutional: Vital Signs: BP 99/67 (BP SITE: RIGHT ARM, BP POSITION: SITTING, BP CUFF SIZE: 12) Pulse 89 Temp 98.6 ??F (37 ??C) Resp 18 Ht 1.575 m (5' 2) Wt 65.5 kg (144 lb 6.4 oz) SpO2 100% Well developed, well nourished, white female, no acute distress, alert and oriented, normocephalic Appearance: WNL Eyes: Conjunctiva/lids WNL and EOM Intact ENT, Mouth: Hearing WNL and External ear/nose WNL Neck: No masses, symmetrical, Thyroid not enlarged and SURG SCARS ANT , LATERAL AND POSTERIOR NECK Resp.:Effort nonlabored Lymph: Neck WNL MS: Stable without dislocation, laxity and PAIN LEFT HIP AND WEAKNESS , WEAKNESS LEFT UPPER EXTREM , USES WALKER AND LIMITED MOTION OF LEFT LEG Areas Assessed: Head/neck, R/L upper extremities, Digits/nails and Inspection/palpatation of above WNL Skin: SKIN NORMAL TEXTURE AND TURGOR Neuro: Cranial [...] metastatic to bone (CMS/HCC) Cervical spine tumor PLAN THYROID/NECK ULTRASOUND TODAY LAB TODAY RETURN [...] TO SURGERY THEN TO TALK TO DR GALLEGOS Postoperative hypothyroidism - Plan: PROC ULTRASOUND THYROID W/WO FNA BIOPSY, TSH, THYROGLOBULIN REFLEX PROFILE Thyroid cancer (CMS/HCC) - Plan: PROC ULTRASOUND THYROID W/WO FNA BIOPSY, TSH, THYROGLOBULIN REFLEXPROFILE Hypocalcemia - Plan: PROC ULTRASOUND THYROID W/WO FNA BIOPSY, TSH, THYROGLOBULIN REFLEX PROFILE Other hypoparathyroidism (CMS/HCC) - Plan: PROC ULTRASOUND THYROID W/WO FNA BIOPSY, TSH, THYROGLOBULIN REFLEX PROFILE Yosi Bustamante MD Professor of Internal Medicine Division of Endocrinology Department of Internal Medicine documented in this encounter Procedure Notes * Yosi Bustamante MD - 11/02/2022 12:21 PM CDTAssociated Order(s): PROC ULTRASOUND THYROID W/WO FNA BIOPSY Procedure(s): MT US SOFT TISS HEAD&NCK R-T IMG Pre-Procedure Diagnose(s): Postoperative hypothyroidism; Thyroid cancer (HCC); Hypocalcemia; Other hypoparathyroidism (HCC) Ultrasound Of Thyroid Ultrasound of the Thyroid PHYSICIAN Yosi Bustamante MD FELLOW Julissa YU MD Test Date: 11/02/2022 Test Indication: Patient Active Problem List: Psychophysiologic [...] metastatic to bone (CMS/HCC) Cervical spine tumor Referring Physician: Dr. Joseph Manzanares MD Procedure [...] DR ROSY Bustamante MD Division of Endocrinology documented in this encounter Plan of Treatment Upcoming Encounters Date Type Department Care Team (Late st Contact Info) Description 07/25/2024 10:00 AM ELECTRIC MOTOR WINDERS ASSEMBLER Office Visit [facility] - Endocrinology [address] [place] [phone] Yosi Bustamante MD [address] [place] [address] 2L [place] [address] 07/26/2024 10:00 AM ELECTRIC MOTOR WINDERS ASSEMBLER Appointment [facility] DIAGNOSTIC RAD [address] [place] [phone] Neri Gallegos MD [address] [place] [address] 07/26/2024 10:00 AM ELECTRIC MOTOR WINDERS ASSEMBLER Office Visit [facility] - ENT [address] [place] [phone] Myra Farmer, GLASS DECORATOR [address] [place] [address] 2L [place] [phone] 07/26/2024 11:15 AM ELECTRIC MOTOR WINDERS ASSEMBLER Office Visit [facility] - ENT [address] [place] [phone] Neri Gallegos MD [address] [place] [address] 08/02/2024 2:20 PM ELECTRIC MOTOR WINDERS ASSEMBLER Appointment [facility] [address] [place] [address] 08/02/2024 3:00 PM ELECTRIC MOTOR WINDERS ASSEMBLER Office Visit [facility] - Hematology/Oncology [address] [place] [phone] Remi Beckett MD [address] [place] [phone] 08/18/2024 1:45 PM ELECTRIC MOTOR WINDERS ASSEMBLER Office Visit [facility] - ENT [address] [place] [phone] Neri Gallegos MD [facility] [place] [address] documented as of this encounter Procedures Procedure Name Priority Date/Time Associated Diagnosis Comments MT US SOFT TISS HEAD&NCK R-T IMG Routine 11/02/2022 12:21 PM CDT Postoperative hypothyroidism Thyroid cancer (HCC) Hypocalcemia Other hypoparathyroidism (CMS/HCC) documented in this encounter Results * MT US SOFT TISS HEAD&NCK R-T IMG (11/02/2022 [...] (HCC) documented in this encounter Care Teams Campus Interviews Intern Relationship Specialty Start Date End Date Joseph Manzanares MD [address] [place] [phone] PCP - General Internal Medicine 10/07/22 04/20/23 Adriana Adams DO [address] [place] [phone] Resident - PCP Internal Medicine 04/06/22 01/12/23 documented as of this encounter
--- OUTSIDE RECORDS SUMMARY | 2024-07-23 07:10 | XMS_ITS | Encounter Summary ---
Author Organization [facility] Address [address] [facility] [place] [address] Care Team Providers Care Call Center Nurse Name Role Phone Adriana Adams DO Unavailable Joseph Manzanares MD Primary Care Provider [phone] Encounter Details Date Type Department Care Team (Late st Contact Info) Description 10/21/2022 Orders Only [facility] PHYS NEUROSURGERY [address] [place] [phone] Von Ray MD [address] [facility] [place] [phone] Social History Tobacco Use Types Packs/Day Years [...] Date Recorded PHQ2 TOTAL SCORE 0 09/02/2022 [facility] of Occupat ional Health - Occupational Stress [...] as of this encounter Progress Notes * Von Ray MD - 10/21/2022 1:33 PM CDT Wound pictures reviewed. Safe for jess to be removed. Follow-up in 3 months. Von Ray MD 10/21/2022 1:35 PM documented in this encounter Plan of Treatment Upcoming Encounters Date Type Department Care Team (Late st Contact Info) Description 07/25/2024 10:00 AM THERAPY DIRECTOR Office Visit [facility] - Endocrinology [address] [place] [phone] Yosi Bustamante MD [address] [place] [address] 2L Div [place] [address] 07/26/2024 10:00 AM THERAPY DIRECTOR Appointment [facility] DIAGNOSTIC RAD [address] [place] [phone] Neri Delgado MD [address] [place] [phone] 07/26/2024 10:00 AM THERAPY DIRECTOR Office Visit [facility] - ENT [address] [place] [phone] Myra Farmer, BIOINFORMATICS SCIENTIST [address] [place] [address] 2L [place] [phone] 07/26/2024 11:15 AM THERAPY DIRECTOR Office Visit [facility] - ENT [address] [place] [phone] Neri Delgado MD [address] [place] [phone] 08/02/2024 2:20 PM THERAPY DIRECTOR Appointment [facility] INF[facility]ION CENTER [address] [place] [address], [place] [address] 08/02/2024 3:00 PM THERAPY DIRECTOR [facility] - Hematology/Oncology [address] [place] [phone] Remi Beckett MD [address] [place] [phone] 08/18/2024 1:45 PM THERAPY DIRECTOR Office Visit [facility] - ENT [address] [place] [phone] eNri Delgado MD [address] [place] [phone] documented as of this encounter Visit Diagnoses Not on filedocumented in this encounter Care Teams Call Center Nurse Relationship Specialty Start Date End Date Joseph Manzanares MD [address] [place] [phone] PCP - General Internal Medicine 10/07/22 04/20/23 Adriana Adams DO [address] [place] [phone] Resident - PCP Internal Medicine 04/06/22 01/12/23 documented as of this encounter
--- OUTSIDE RECORDS SUMMARY | 2024-07-23 07:10 | XMS_ITS | Encounter Summary ---
Author Organization [facility] Address [address] [facility] [place] [address] Care Team Providers Care Community Placement Worker Name Role Phone Joseph Manzanares MD Primary Care Provider [phone] Tiana Naylor DO Unavailable [phone] Encounter Details Date Type Department Care Team (Latest Contact Info) Description 01/20/2023 12:25 PM CDT - 01/20/2023 11:59 PM CDT Hospital Encounter [facility] LAB OP DRAW STATION [address] [place] [address] [phone] Discharge Disposition: Home or Self Care Social [...] Date Recorded PHQ2 TOTAL SCORE 1 11/25/2022 [facility] - [...] A DAY 60 capsule 11 02/22/2022 05/28/2023 [id number] PO Take by mouth once daily 06/13/2023 [...] sprayIndications:Allergi c rhinitis, unspecified seasonality, unspecified trigger [place]k 2 (two) sprays into each nostril once daily 48 g 11/25/2022 02/22/2023 [id number] YAL PO Take 1 tablet by mouth [...] Contact Info) Description 07/25/2024 10:00 AM IT ARCHITECTURE ANALYST Office Visit [facility] - Endocrinology [address] [place] [address], [place] [address] Yosi Bustamante MD [address] [place] [address] [place] [address] 07/26/2024 10:00 AM IT ARCHITECTURE ANALYST Appointment [facility] DIAGNOSTIC RAD [address] [place] [address] Neri Delgado MD [address] [place] [address] 07/26/2024 10:00 AM IT ARCHITECTURE ANALYST Office Visit [facility] - ENT [address] [place] [phone] Myra Farmer, ASSOCIATE BRAND MANAGER [address] [place] [address] [place] [phone] 07/26/2024 11:15 AM IT ARCHITECTURE ANALYST Office Visit [facility] - ENT [address] [place] [address] [phone] Neri Delgado MD [address] [place] [address] 08/02/2024 2:20 PM IT ARCHITECTURE ANALYST Appointment [facility] INFUSION CENTER [address] [place] [address] 08/02/2024 3:00 PM IT ARCHITECTURE ANALYST Office Visit [facility] Group - Hematology/Oncology [address] [place] [address] [phone] Remi Beckett MD [address] [place] [phone] 08/18/2024 1:45 PM IT ARCHITECTURE ANALYST Office Visit [facility] - ENT [address] [place] [address] [phone] Neri Delgado MD [address] [place] [address] documented as of this encounter Procedures Procedure Name Priority Date/Time Associated Diagnosis Comments THYROGLOBULIN REFLEX PROFILE Routine 01/20/2023 12:43 PM CDT Postoperative hypothyroidism Thyroid cancer (HCC) Hypocalcemia Other hypoparathyroidism (CMS/HCC) THYROGLOBULIN BY ANTONIETA RFLXED Routine 01/20/2023 12:43 PM CDT Postoperative hypothyroidism Thyroid cancer (HCC) Hypocalcemia Other hypoparathyroidism (CMS/HCC) TSH REFLEX FREE T4 Routine 01/20/2023 12 :43 PM CDT Postoperative hypothyroidism Thyroid cancer (HCC) Hypocalcemia Other hypoparathyroidism (CMS/HCC) T4 FREE Routine 01/20/2023 12:43 PM CDT Postoperative hypothyroidism Thyroid cancer (HCC) Hypocalcemia Other hypoparathyroidism (CMS/HCC) documented in this encounter Results * (ABNORMAL) THYROGLOBULIN BY ANTONIETA RFLXED (01/20/2023 12:43 PM CDT) Thyroglobulin by ANTONIETA 42.8(H) 1.5 - 38.5 ng/mL 01/21/2023 6:08 PM CDT [facility] ([facility]) Comment: According to the National Academy [...] is 0.1 ng/mL Thyroglobulin measured by Lisbet Stuttgart Immunometric Assay Blood BLOOD SPECIMEN / Unknown Lab Venipuncture / Unknown 01/20/2023 12:43 PM CDT 01/20/2023 1:03 PM CDT Narrative [facility] ([facility]) - 01/21/2023 6:08 PM CDT Performed at: ??01 - [facility] [address] ??[id number] Cheese Maker: Oral Melendez PhD, Phone: ??[phone] Yosi Bustamante MD LAB - CHEMISTRY ORD ERABLES [facility] ([facility]) [address] [place] [address], [facility] * (ABNORMAL) T4 FREE (01/20/2023 12:43 PM CDT) [facility] T4 Free 1.6(H) 0.7 - 1.5 ng/dL 01/20/2023 2:30 PM CDT [facility] Blood BLOOD SPECIMEN / Unknown Lab Venipuncture / Unknown 01/20/2023 12:43 PM CDT 01/20/2023 1:09 PM CDT Yosi Bustamante MD LAB - CHEMISTRY ORD ERABLES [facility] LABORATORY [address] [address], [facility] [phone] * THYROGLOBULIN REFLEX PROFILE (01/20/2023 12:43 PM CDT) [facility] Thyroglobulin Antibody <1.0 0.0 - 0.9 IU/mL 01/21/2023 6:08 PM CDT [facility] ([facility]) Comment:Thyroglobulin Antibo dy measured by Lisbet Marcos Methodology Blood BLOOD SPECIMEN / Unknown Lab Venipuncture / Unknown 01/20/2023 12:43 PM CDT 01/20/2023 1:03 PM CDT N[facility]ative [facility] ([facility]) - 01/21/2023 6:08 PM CDT Performed at: ??01 - [facility] [address] [place], [place] ??[id number] Cheese Maker: Oral Melendez PhD, Phone: ??[phone] Yosi Bustamante MD LAB - CHEMISTRY ORD ERABLES [facility] ([facility]) [address] [place] [address] * (ABNORMAL) TSH REFLEX FREE T4 (01/20/2023 12:43 PM CDT) [facility] TSH <0.010(L) 0.350 - 4.940 uIU/mL 01/20/2023 1:57 PM CDT [facility] Blood BLOOD SPECIMEN / Unknown Lab Venipuncture / Unknown 01/20/2023 12:43 PM CDT 01/20/2023 1:09 PM CDT Yosi Bustamante MD LAB - CHEMISTRY ORD ERABLES [facility] [address] [place] [address], [facility] [phone] documented in this encounter Visit Diagnoses Diagnosis Postoperative hypothyroidism- Primary Postsurgical hypothyroidism Thyroid cancer (HCC) Malignant neoplasm of thyroid gland Hypocalcemia Other hypoparathyroidism (HCC) documented in this encounter Care Teams Community Placement Worker Relationship Specialty Start Date End Date Joseph Manzanares MD [address] [place] [address] PCP - General Internal Medicine 10/07/22 04/20/23 Tiana Naylor DO [address] [facility] [place] [address] Resident - PCP Internal Medicine 01/13/23 04/20/23 documented as of this encounter
--- OUTSIDE RECORDS SUMMARY | 2024-07-23 07:10 | XMS_ITS | Encounter Summary ---
Author Organization [facility] Address [address] [place] [address] Care Team Providers Care Interventional Physician Name Role Phone Adriana Adams DO Unavailable Joseph Manzanares MD Primary Care Provider [phone] Encounter Details Date Type Department Care Team (Latest Contact Info) Description 10/30/2022 Travel Social History Tobacco Use Types Packs/Day [...] Date Recorded PHQ2 TOTAL SCORE 0 09/02/2022 [facility] of Occupat ional Health - Occupational Stress [...] st Contact Info) Description 07/25/2024 10:00 AM POSTPARTUM NURSE Office Visit [facility] - Endocrinology [address] [place] [address] Yosi Bustamante MD [address] [place] [address] 2L [place] [address] 07/26/2024 10:00 AM POSTPARTUM NURSE Appointment [facility] DIAGNOSTIC RAD [address] [place] [address] Neri Delgado MD [address] [place] [address] 07/26/2024 10:00 AM POSTPARTUM NURSE Office Visit [facility] - ENT [address] [place] [address] [phone] Myra Farmer, RUG DYER HELPER [address] [place] [address] 2L [place] [phone] 07/26/2024 11:15 AM POSTPARTUM NURSE Office Visit [facility] - ENT [address] [place] [phone] Neri Delgado MD [address] [place] [address] 08/02/2024 2:20 PM POSTPARTUM NURSE Appointment [facility] INFUSION CENTER [address] [place] [address] 08/02/2024 3:00 PM POSTPARTUM NURSE Office Visit [facility] - Hematology/Oncology [address] [place] [address] [phone] Remi Beckett MD [address] [place] [phone] 08/18/2024 1:45 PM POSTPARTUM NURSE Office Visit [facility] - ENT [address] [place] [address] [phone] Neri Delgado MD [address] [place] [address] documented as of this encounter Visit Diagnoses Not on filedocumented in this encounter Care Teams Interventional Physician Relationship Specialty Start Date End Date Joseph Manzanares MD [address] [place] [phone] PCP - General Internal Medicine 10/07/22 04/20/23 Adriana Adams DO [address] [place] [phone] Resident - PCP Internal Medicine 04/06/22 01/12/23 documented as of this encounter
--- OUTSIDE RECORDS SUMMARY | 2024-07-23 07:10 | XMS_ITS | Encounter Summary ---
Author Organization [facility] Address [address] [facility] [place] [address] Care Team Providers Care Women'S Activities Adviser Name Role Phone Adriana Adams DO Unavailable Joseph Manzanares MD Primary Care Provider [phone] Reason for Visit * Reason Onset Date Comments MEDICATION REFILL 10/27/2022 Encounter Details Date Type Department Care Team (Late st Contact Info) Description 10/27/2022 Refill [facility] Pediatrics - Neurosurgery [address] [place] [facility] [place] [address] Aleena Henry MD [address] [facility] 2L [facility] [place] [address] MEDICATION REFILL Social History Tobacco Use Types [...] Date Recorded PHQ2 TOTAL SCORE 0 09/02/2022 [facility] [place] of Occupat ional Health - Occupational Stress [...] Contact Info) Description 07/25/2024 10:00 AM MANAGER COUNTRY Office Visit [facility] Group - Endocrinology [address] [place] [phone] Yosi Bustamante MD [address] [place] [address] 2L [place] [address] 07/26/2024 10:00 AM MANAGER COUNTRY Appointment [facility] DIAGNOSTIC RAD [address] [place] [address] Neri Delgado MD [address] [place] [address] 07/26/2024 10:00 AM MANAGER COUNTRY Office [facility] ENT [address] [place] [phone] Myra Farmer, FIXTURE REPAIRER FABRICATOR [address] [place] [address] 2L [place] [phone] 07/26/2024 11:15 AM MANAGER COUNTRY Office Visit [facility]ician Group - ENT [address] [place] [phone] Neri Delgado MD [address] [place] [address] 08/02/2024 2:20 PM MANAGER COUNTRY Appointment [facility] INFUSION CENTER [address] [place] [address] 08/02/2024 3:00 PM MANAGER COUNTRY Office Visit [facility] Physician Group - Hematology/Oncology [address] [place] [phone] Remi Beckett MD [address] [place] [phone] 08/18/2024 1:45 PM MANAGER COUNTRY Office Visit [facility] - ENT [address] [place] [phone] Neri Delgado MD [address] [place] [address] documented as of this encounter Visit Diagnoses Diagnosis 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
--- OUTSIDE RECORDS SUMMARY | 2024-07-23 07:11 | XMS_ITS | Encounter Summary ---
Author Organization [facility] Address [address] [place] [address] Care Team Providers Care Software Development Advisor Name Role Phone Adriana Adams DO Unavailable Joseph Manzanares MD Primary Care Provider [phone] Encounter Details Date Type Department Care Team (Late st Contact Info) Description 10/14/2022 Plan of Care Documentation [facility] Health at Home Home Health [address] [place] [address] Social History Tobacco Use Types Packs/Day Years [...] SCORE 0 09/02/2022 [facility] [place] of Occupat ional Health - Occupational Stress [...] suspected to have Coronavirus/COVID-19? No / Unsure 10/14/2022 4:27 PM CDT documented as of this encounter [...] st Contact Info) Description 07/25/2024 10:00 AM PICK UP ATTENDANT Office Visit [facility] - Endocrinology [address] [place] [phone] Yosi Bustamante MD [address] [place] [address] 2L [place] [address] 07/26/2024 10:00 AM PICK UP ATTENDANT Appointment [facility] DIAGNOSTIC RAD [address] [place] [address] Neri Delgado MD [address] [place] [address] 07/26/2024 10:00 AM PICK UP ATTENDANT Office Visit [facility] - ENT [address] [place] [phone] Myra Farmer, PRESCHOOL SPECIAL EDUCATION TEACHER [address] [place] [address] 2L DIV [place] [address] 07/26/2024 11:15 AM PICK UP ATTENDANT Office Visit [facility] - ENT [address] [place] [phone] Neri Delgado MD [address] [place] [address] 08/02/2024 2:20 PM PICK UP ATTENDANT Appointment [facility] INFUSION CENTER [address] [place] [address] 08/02/2024 3:00 PM PICK UP ATTENDANT Office Visit [facility] - Hematology/Oncology [address] [place] [phone] Remi Beckett MD [address] [place] [phone] 08/18/2024 1:45 PM PICK UP ATTENDANT Office Visit [facility] - ENT [address] [place] [address] Neri Delgado MD [address] [place] [address] documented as of this encounter Visit Diagnoses Not on filedocumented in this encounter Care Teams Software Development Advisor Relationship Specialty Start Date End Date Joseph Manzanares MD [address] [place] [phone] PCP - General Internal Medicine 10/07/22 04/20/23 Adriana Adams DO [address] [place] [phone] Resident - PCP Internal Medicine 04/06/22 01/12/23 documented as of this encounter
--- OUTSIDE RECORDS SUMMARY | 2024-07-23 07:11 | XMS_ITS | Encounter Summary ---
Author Organization [facility] Address [address] [place] [address] Care Team Providers Care Production Controller Name Role Phone Adriana Adams DO Unavailable Joseph Manzanares MD Primary Care Provider [phone] Reason for Visit * Auth/Cert (Routine) Specialty Diagnoses / Procedures Referred By Contricardo t Referred To Contact Referral ID Status Reason Start Date Expiration Date Visits Re quested Visits Authorized [id number] 1 1 Encounter Details Date Type Department Care Team (Late st Contact Info) Description 10/20/2022 9:45 AM CDT Home Care Visit [facility] Health at Home Home Health [address] [place] [phone] Kendra Smyth OT OT HOME VISIT Social [...] Date Recorded PHQ2 TOTAL SCORE 0 09/02/2022 [facility] [place] of Occupat ional Health - Occupational Stress [...] Sign Reading Time Taken Comments Blood Pressure 122/76 10/20/2022 10:15 AM CDT Pulse 99 10/20/2022 10:15 AM CDT Temperature 36.4 ??C (97.5 ??F) 10/20/2022 10:15 AM C DT Respiratory Rate - - Oxygen Saturation 97% 10/20/2022 10:15 AM CDT Inhaled Oxygen Concentration - - [...] encounter Miscellaneous Notes * Home Health - Kendra Smyth OT - 10/20/2022 10:08 AM CDT Patient reports is in the hospital since Wednesday. Sister is coming to assist as needed. She did not get the grab bars for the shower yet. documented in this encounter Plan of Treatment Upcoming Encounters Date Type Department Care Team (Late st Contact Info) Description 07/25/2024 10:00 AM SURFACE MINER Office Visit [facility] - Endocrinology [address] [place] [phone] Yosi Bustamante MD [address] [place] [address] 2L [place] [address] 07/26/2024 10:00 AM SURFACE MINER Appointment [facility] DIAGNOSTIC RAD [address] [place] [phone] Neri Delgado MD [address] [place] [address] 07/26/2024 10:00 AM SURFACE MINER Office Visit [facility] - ENT [address] [place] [address] [phone] Myra Farmer, DENTAL PRACTITIONER [address] [place] [address] [place] [address] 07/26/2024 11:15 AM SURFACE MINER Office Visit [facility] - ENT [address] [place] [phone] Neri Delgado MD [address] [place] [address] 08/02/2024 2:20 PM SURFACE MINER Appointment [facility] [address] [place] [address] 08/02/2024 3:00 PM SURFACE MINER Office Visit [facility] Physician Group - Hematology/Oncology [address] [place] [phone] Remi Beckett MD [address] [place] [phone] 08/18/2024 1:45 PM SURFACE MINER Office Visit [facility] - ENT [address] [place] [phone] Neri Delgado MD [address] [place] [address] documented as of this encounter Visit Diagnoses [...] today with cues only using sock aide -Perform shower transfer with SBA using AE/DME as recommended for safety -Perform bathing in shower with min A or less using AE/tech. -Patient to be ind/safe with use of [...] weeks. Decreased Upper Extremity Function Progressing No Patient has handouts in place for UE HEP. Interventions Intervention Associated Problem/Goal Status Variance Visit [...] increased activities of daily living Completed Patient still needs to buy suction bars for shower; will do this week with sister Trialed sock aid successfully and educated on resource for purchase. Patient was also able to empty her BSC ind in toilet and rinse out in tub safely today. Good balance noted and functional use of L UE as assist. Using BSC ind now at bedside Upper Extremity Description: - Instruct in range of motion exercises and flexibility. - Instruct in therapeutic strengthening program. - Instruct in home program. - Patient and caregiver education. Problem:Decreased Upper Extremity Function Goal:Patient improves upper extremity function Completed Educated on UE HEP: supine SROM for shoulder flexion; then isometric hold at 90d for 10 counts-5 reps; then eccentric lowering with cues Worked on small range elbow flex/ext in supine as well. still very weak bicep noted. Comleted tabletop slide ex with L UE successfully for flexion, horiz ab and circles each direction x10l Issued handout. Completed scapular strength ex following handout as well. documented in this encounter Care Teams Production Controller Relationship Specialty Start Date End Date Joseph Manzanares MD [address] [place] [phone] PCP - General Internal Medicine 10/07/22 04/20/23 Adriana Adams DO [address] [place] [address] Resident - PCP Internal Medicine 04/06/22 01/12/23 documented as of this encounter
--- OUTSIDE RECORDS SUMMARY | 2024-07-23 07:11 | XMS_ITS | Encounter Summary ---
Author Organization [facility] Address [address] [place] [address] Care Team Providers Care Fur Repair Inspector Name Role Phone Adriana Adams DO Unavailable Joseph Manzanares MD Primary Care Provider [phone] Encounter Details Date Type Department Care Team (Late st Contact Info) Description 10/08/2022 Home Care Visit [facility] Health [address] [place] [address] Mary Beth Sun, PT CASE COMMUNICATION Social History Tobacco Use Types Packs/Day Years [...] Date Recorded PHQ2 TOTAL SCORE 0 09/02/2022 [facility] [place] of Occupat ional Health - Occupational Stress [...] st Contact Info) Description 07/25/2024 10:00 AM TOE STAPLER Office Visit [facility] - Endocrinology [facility] [place] [address] Yosi Bustamante MD [address] [place] [address] 2L [place] [address] 07/26/2024 10:00 AM TOE STAPLER Appointment [facility] DIAGNOSTIC RAD [address] [place] [address] Neri Delgado MD [address] [place] [address] 07/26/2024 10:00 AM TOE STAPLER Office Visit [facility] - ENT [address] [place] [phone] Myra Farmer, AUTOMOTIVE LUBE TECHNICIAN [address] [place] [address] 2L [place] [phone] 07/26/2024 11:15 AM TOE STAPLER Office Visit [facility] - ENT [address] [place] [phone] Neri Delgado MD [address] [place] [address] 08/02/2024 2:20 PM TOE STAPLER Appointment [facility] INF[facility]ION CENTER [address] [place] [address] 08/02/2024 3:00 PM TOE STAPLER Office Visit [facility] Physician Group - Hematology/Oncology [address] [place] [phone] Remi Beckett MD [address] [place] [phone] 08/18/2024 1:45 PM TOE STAPLER Office Visit [facility] - ENT [address] [place] [phone] Neri Delgado MD [address] [place] [address] documented as of this encounter Visit Diagnoses Not on filedocumented in this encounter Care Teams Fur Repair Inspector Relationship Specialty Start Date End Date Joseph Manzanares MD [address] [place] [address] PCP - General Internal Medicine 10/07/22 04/20/23 Adriana Adams DO [address] [place] [address] Resident - PCP Internal Medicine 04/06/22 01/12/23 documented as of this encounter
--- OUTSIDE RECORDS SUMMARY | 2024-07-23 07:11 | XMS_ITS | Encounter Summary ---
Author Organization [facility] Health Address [address] [facility] [place] [address] Care Team Providers Care Single Ending Machine Operator Name Role Phone Adriana Adams DO Unavailable Joseph Manzanares MD Primary Care Provider [phone] Reason for Visit * Auth/Cert (Routine) Specialty Diagnoses / Procedures Referred By Contac t Referred To Contact Referral ID Status Reason Start Date Expiration Date Visits Re quested Visits Authorized [id number] 1 1 Encounter Details Date Type Department Care Team (Latest Contact Info) Description 10/14/2022 10:30 AM CDT Home Care Visit [facility] [address], [address] [place] [phone] Anaya Bach, RADIATION ONCOLOGIST-TECHNICAL TRAINING COORDINATOR [address] [place] [address] Waleska White, PT PT OASIS START OF CARE Social History Tobacco Use Types Packs/Day Years [...] Date Recorded PHQ2 TOTAL SCORE 0 09/02/2022 [facility] - [...] Sign Reading Time Taken Comments Blood Pressure 136/82 10/14/2022 11:33 AM CDT Pulse 90 10/14/2022 11:33 AM CDT Temperature 36.3 ??C (97.4 ??F) 10/14/2022 11:33 AM C DT Respiratory Rate 16 10/14/2022 11:33 AM CDT Oxygen Saturation 96% 10/14/2022 11:33 AM CDT Inhaled Oxygen Concentration - - [...] encounter Miscellaneous Notes * Home Health - Waleska White, PT - 10/14/2022 10:25 AM CDT Patient open to home health physical therapy s/p hospitalization at [facility] from 10/02/22 - 10/07/22 s/p C2-T2 fusion and decompression C3-7 and resection of extramedullary spine tumor. Patient was originally diagnosed with thyroid cancer in 2020 and had thyroid removed. She was most recently diagnosed with malignant neoplasm of thyroid and metastatic cervical cancer in early September. Patient completed 2radiation treatments prior to surgery on 10/02/22. Patient was discharged home on 10/07/22. Patient has wheeled walker and has 5 steps to enter home. 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 PLOF: Patient has used a cane for several years due to her L hip pain and has been usinga rollator walker since this surgery. Patient has been on disability since 2020. Patient was scheduled for a reverse L total shoulder on 09/29/22 however surgery was cancelled due to metatastic cervical cancer diagnosis. Patient lives with her , who is also disabled and on continuous oxygen. Patient's sister assists with bathing needs. Patient also has an agency that comes in 4 times/week for light cleaning, caring for 2 cats, cooking, laundry, etc. Patient will be continuing with radiation treatments, but does not have a schedule yet. documented in this encounter Plan of Treatment Upcoming Encounters Date Type Department Care Team (Late st Contact Info) Description 07/25/2024 10:00 AM ADVENTURE GUIDE Office [facility] Endocrinology [address] [place] [phone] Yosi Bustamante MD [address] [place] [address] [address] [place] [address] 07/26/2024 10:00 AM ADVENTURE GUIDE Appointment [facility] [address] [place] [address] Neri Delgado MD [address] [place] [phone] 07/26/2024 10:00 AM ADVENTURE GUIDE Office Visit [facility] - ENT [address] [place] [phone] Myra Farmer, AUTOMATION CONSULTANT [address] [place] [address] [address] [place] [address] 07/26/2024 11:15 AM ADVENTURE GUIDE Office Visit [facility] [address] [place] [phone] Neri Delgado MD [address] [place] [phone] 08/02/2024 2:20 PM ADVENTURE GUIDE Appointment [facility] [address] [place] [address] 08/02/2024 3:00 PM ADVENTURE GUIDE Office Visit [facility] - Hematology/Oncology [address] [place] [phone] Remi Beckett MD [address] [place] [address] 08/18/2024 1:45 PM ADVENTURE GUIDE Office Visit [facility] - ENT [address] [place] [phone] Neri Delgado MD [facility] [place] [address] Scheduled Referrals Name Type Priority Associated Diagnoses Orde r Schedule Referral to Home Health Care Outpatient Referral Routine Cancer, metastatic to bone (HCC) Cervical spine tumor Ordered: 10/05/2022 documented as of this encounter Visit Diagnoses Not on filedocumented in this encounter Home Health Visit - Care Plan Visit Details Visit Type -PT OASIS Start o f Care Discipline -Physical Therapy Problems Problem Description Start Date Status Goals Interve ntions X Additional Home Health Orders Disciplines: All Disciplines (/Hospice) 10/14/2022 Active 1 goal linked to scheduled/documen june intervention 1 goal intervention scheduled/documen june in this visit Pain Disciplines: PT (/Hospice) Acute pain of grade 6 on a scale of 0-10. 10/14/2022 Active 1 goal linked to scheduled/documen june intervention 1 goal intervention scheduled/documen june in this visit Decreased Bed Mobility Disciplines: PT (/Hospice) Decreased bed mobility. 10/14/2022 Active 1 goal linked to scheduled/documen june intervention 1 goal intervention scheduled/documen june in this visit Gait Deficit Disciplines: PT (/Hospice) - Decreased ambulation requiring minimum level of assist. - Decreased quality of gait with gait deviations and/or impaired postural alignment. 10/14/2022 Active 1 goal linked to scheduled/documen june intervention 1 goal intervention scheduled/documen june in this visit Transfer Deficit Disciplines: PT (/Hospice) - Decreased transfer ability requiring minimum level of assist related to LE weakness. - Requires caregiver instruction. 10/14/2022 Active 1 goal linked to scheduled/documen june intervention Decreased Strength Disciplines: PT (HH/Hospice) Decreased strength in lower extremities related to s/p cervical fusion and tumor resection 10/14/2022 Active 1 goal linked to scheduled/documen june intervention 1 goal intervention scheduled/documen june in this visit Home Exercise Program Disciplines: PT (HH/Hospice) Requires instruction of home program for therapeutic [...] 30 days. Home Exercise Program Progressing No Interventions Intervention Associated Problem/Goal Status [...] Orders Goal:Additional Home Health Orders Completed Vitals WFL Pain Management Description: - Implement appropriate modality for pain control. - Implement therapeutic exercise program for pain control. - Instruct Patient in pain management. Problem:Pain Goal:Patient reports decreased pain and/or increased functional activity Completed Patient is currently taking Percocet every 6 hours as needed for pain. Discussed used of ice to cervical region as well as sitting with neck supported in recliner to decrease strain on the cervical region. Instruct Bed Mobility Description: Instruct Patient in bed mobility techniques. Problem:Decreased Bed Mobility Goal:Patient improves bed mobility Completed Patient demonstrates difficulty with rolling and supine to/from sit due to pain in the cervical region, L shoulder and hip. Verbal cues required to push up through R UE. Gait Deficit Description: Gait training. Problem:Gait Deficit Goal:Patient improves ambulation and quality of gait Completed Amb 75 feet in home x 2 with WW and min A. Recommended removal of rugs. Patient demonstrates antalgic gait with limited WB on the L LE due to severe OA in the hip. Decreased Strength Description: - Therapeutic exercise. - Upgrade home exercise program. Problem:Decreased Strength Goal:Patient increases strength and/or functional mobility Completed L LE strength 2/5, R LE 3/5. Patient instructed in the following THERAPEUTIC EXERCISES: ISSUED WRITTEN HEP TO PERFORM 2X DAILY, 10 REPS EACH. SUPINE: ANKLE PUMPS, QUAD SETS WITH 5 SEC HOLD, GLUT SETS WITH 5 SEC HOLD, HIP ABDUCTION (ASSIST FOR L LE), HEEL SLIDES, STRAIGHT LEG RAISES (R LEG ONLY), TERMINAL KNEE EXTENSION WITH 5 SEC HOLD, BRIDGE. PATIENT VOICED GOOD UNDERSTANDING. Home Exercise Program Description: - Upgrade home exercise program. - Instruct Patient in home exercise program. Problem:Home Exercise Program Goal:Patient performs home exercise program Completed Instructed patient in home program including supine exercises to be performed at least 2 times/day. Patient demonstrated good understanding documented in this encounter Care Teams Single Ending Machine Operator Relationship Specialty Start Date End Date Joseph Manzanares MD [address] [place] [phone] PCP - General Internal Medicine 10/07/22 04/20/23 Adriana Adams DO [address] [place] [address] Resident - PCP Internal Medicine 04/06/22 01/12/23 documented as of this encounter
--- OUTSIDE RECORDS SUMMARY | 2024-07-23 07:11 | XMS_ITS | Encounter Summary ---
Author Organization [facility] Health Address [address] [place] [address] Care Team Providers Care Addictions Therapist Name Role Phone Adriana Adams DO Unavailable Taniya Grimes MD Primary Care Provider Joseph Manzanares MD Primary Care Provider [phone] Reason for Referral * (Routine) - Closed Specialty Diagnoses / Procedures Referred By Contac t Referred To Contact Procedures Follow up with provider Coy Gómez MD [address] [place] [address] Coy Gómez MD [address] [place] [address] Referral ID Status Reason Start Date Expiration Date Visits Re quested Visits Authorized [id number] Closed 10/06/2022 10/06/2023 1 1 * Transfer of Care (Routine) - Closed Specialty Diagnoses / Procedures Referred By Contac t Referred To Contact Procedures Follow up with Primary Care Provider (PCP) Coy Gómez MD [address] [place] [address] Referral ID Status Reason Start Date Expiration Date Visits Re quested Visits Authorized [id number] Closed 10/06/2022 10/06/2023 1 1 * Home Health Care (Routine) - Closed Specialty Diagnoses / Procedures Referred By Yuan robins Referred To Contact Home Health Services Diagnoses Cancer, metastatic to bone (HCC) Cervical spine tumor Anaya Bach APRN-CNP [address] [facility] [address] [place] [address] [facility] Scheduling [address] [place] [address] Referral ID Status Reason Start Date Expiration Date V isits Requested Visits Authorized [id number] Closed Specialty Services Required 10/05/2022 10/05/2023 999 999 Reason for Visit * Auth/Cert (Routine) Specialty Diagnoses / Procedures Referred By Yuan robins Referred To Contact Diagnoses Cervical spine tumor spine tumor Procedures FUSION POSTERIOR CERVICAL (PCF) Referral ID Status Reason Start Date Expiration Date Visits Re quested Visits Authorized [id number] 1 1 Encounter Details Date Type Department Care Team (Latest Contact Info) Description 10/02/2022 5:55 AM CDT - 10/07/2022 12:12 PM CDT Hospital Encounter [facility] 7N ACUTE [address] [place] [address] Coy Gómez MD [address] [facility] [address] [place] [place] [address] Surgery General Discharge Disposition: Home Health Care Svc Social History Tobacco Use Types Packs/Day Years [...] Date Recorded PHQ2 TOTAL SCORE 0 09/02/2022 [facility] Occupat ional [facility] - Occupational Stress Questionnaire Answer Date [...] suspected to have Coronavirus/COVID-19? 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 documented as of this encounter Last Filed Vital Signs Vital Sign Reading Time Taken Comments Blood Pressure 144/81 10/07/2022 8:25 AM CDT Pulse 82 10/07/2022 8:25 AM CDT Temperature 36.7 ??C (98.1 ??F) 10/07/2022 8:25 AM CD T Respiratory Rate 18 10/07/2022 8:25 AM CDT Oxygen Saturation 95% 10/07/2022 8:25 AM CDT Inhaled Oxygen Concentration - - Weight 63.7 kg (140 lb 6.4 oz) 10/02/2022 6:29 A M CDT Height 157.5 cm (5' 2) 10/02/2022 6:29 AM CDT Body Mass Index 25.68 10/02/2022 6:29 AM CDT documented in this encounter Functional [...] 10/02/2022 documented as of this encounter Discharge Summaries * Von Ray MD - 10/06/2022 4:10 PM CDT Physician Discharge Summary Patient ID: Elizabeth Caicedo [id number] 62 year old 1960 Admit date: 10/02/2022 Discharge date and time: 10/06/22 4:11 PM Admitting Physician: Coy Gómez MD Discharge Physician: Von Ray MD Admission Diagnoses: Cancer, metastatic to bone (CMS/HCC) Discharge Diagnoses: Principal Problem: Cancer, metastatic to bone (CMS/HCC) Active Problems: Cervical spine tumor Psychophysiologic insomnia Chronic fatigue Snoring Obsessive-compulsive disorder Headache Primary osteoarthritis of left hip Nicotine dependence High cholesterol Other psoriasis Complete paralysis of right vocal cord Hoarseness Tracheal mass Lymphadenopathy of head and neck region Cellulitis Postoperative hypothyroidism Thyroid cancer (CMS/HCC) Other hypoparathyroidism (CMS/HCC) Neoplasm of uncertain behavior of skin Other seborrheic keratosis Depression, unspecified Left shoulder pain Urinary incontinence Chronic pain after cancer treatment Admission Condition: good Discharged Condition: good Indication for Admission: Hospital Course: atient is a 62 year old female with metastatic??high risk papillary thyroid cancer??([id number] - IVb) s/p??salvage total thyroidectomy and neck dissection??on??02/05/2022??with right neck residual/recurrent disease??and metastases to the spine??s/p revision right central neck dissection. She underwe nt C2-T2 fusion and decompression C3-C7 and resection extramedullary spine tumor. The findings were??extramedullay tumor at C4,5,6. The wound was closed with??jess. Consults: none Significant Diagnostic Studies: See hospital course Treatments: See hospital course Discharge Exam: General appearance: no distress Neuro: alert, oriented x3 (person, place, time) Motor: ?? Deltoid Bicep Tricep Capital Equipment Specialist Wrist Ext Finger ext Hip Flexor Quad Hamstring Tib Ant Gastroc EHL Right 5 5 5 5 5 5 5 5 5 5 5 5 Left 1 1 4 4+ 4+ 4+ 4 5 5 5 5 5 ? Disposition:home Patient Instructions: Numb cream Neurosurgery Inpatient Discharge Instructions If you have any questions about the instructions below please call: [phone], ask for the Neurosurgery resident stamp redemption clerk. Diet: regular diet Wound care after surgery: 1. Avoid getting your wound wet. 2. Do not cover the wound unless you were told to do so. 3. Keep completely dry for first 3 days after surgery. 4. Can shower after 3 days but dab the wound dry right after. 5. No bath tubs or swimming until 4 weeks after surgeon, and cleared by your surgeon. 6. Your wound has was closed with jess which will need to be removed in 3 weeks Eating regular diet Do not drink alcohol or take tranquilizers. Try to eat healthy foods and drink lots of water About your medicines: Take medicine you normally would take UNLESS they were changed in the hospital. Do not take medicine that has not been prescribed by your doctors. Make sure to follow the instructions on your medicine and do you best to take it as need. If you have questions regarding the medications you were sent home on please call [phone], and ask for the Neurosurgery resident stamp redemption clerk. Do not sign important papers or make important decisions while taking narcotic pain medicines. Do have a person with you that can help you and that you can trust Do ask family or friends to check up on you for a few days following surgery if you live alone. See your after visit summary (included in your discharge paper work) for a list of your medications. Activity: You have just been in the hospital, it will take time to recover fully. Make sure to rest, eat healthy foods, drink plenty of water, and take your medication as directed. Light activity is ok, and is encouraged, but do not do things which cause you to become short of breath, lift heavy objects, walk or stand for a long period of time, or make your heart beat fast. If you start to do an activity, and start to feel sick, sit down and rest. Specifically: Do not lift more than 5-10 pounds at a time (no more than a gallon of milk) Do not heavy activity until cleared by your surgeon at your follow-up appointment. Stay lightly active in side home Have someone with you while climbing/descending stairs You can go out for walks, but always have someone with you NO contact sports, no heavy lifting, no heavy activity, no swimming until you are seen for follow up. Do not drive while taking narcotic pain medicine, or other medicines which make you feel tired orsleepy. Drivin. Do not drive until you are cleared by surgeons. 2. Do not driving while on narcotic pain medications 3. Do not drive if you were told you had a seizure Follow up: 1) Please see Dr. Gómez in his office in 3 weeks for a wound checkup. - For clinic appointment information call Heather Oreilly at [phone]. - Also, you can call Outpatient Strategic Sourcing Manager at [phone] 2) Please see your family doctor for follow up regarding your health after surgery. General Postsurgical Instructions Call or find medical care if: You feel sick to your stomach (nauseous). You start to throw up (vomit). You have trouble eating or drinking. You have an fever higher than 102?? F (38.9?? C). You have constipation that is not helped by adjusting diet or drinking more water. Pain medicines are a common cause of constipation. Go to an Emergency Room or call 911 if: Redness or leaking from your incision wound. Very bad headache Trouble seeing Trouble breathing You become very confused You have new weakness, trouble speaking or understand what is being said have balance problems, or have facial drooping You have a seizure, or you pass out/lose consciousness If you have any questions about these instructions please call: [phone], ask for the Neurosurgery resident stamp redemption clerk. This list of medications is preliminary and tentative: please see the Patient Discharge Instructions for patient's discharged home or the Facility Transfer Order for the final and accurate medications list. Current Discharge Medication List START taking these medications Details oxyCODONE-acetaminophen (Percocet) 10-325 MG tablet Take 1 (one) tablet by mouth every 4 hours as needed polyethylene glycol 3350 (Miralax) 17 g packet Take 17 (seventeen) g by mouth once daily as needed for Constipation senna (Senokot Extra Strength) 17.2 MG Take 17.2 mg by mouth once daily CONTINUE these medications which have CHANGED Details celecoxib (CeleBREX) 200 MG capsule Take 1 (one) capsule by mouth once daily naproxen (Naprosyn) 500 MG tablet Take 1 (one) tablet by mouth 2 times daily as needed CONTINUE these medications which have NOT CHANGED Details acetaminophen (TYLENOL) 500 MG tablet Take 2 (two) tablets by mouth every 6 hours as needed al & mag hydoxide 120mL-diphenhydramine 120 mL-viscous lidocaine 120 mL-nystatin 60 mL (Radiation Oncology Cocktail) suspension Take 5 mL by mouth 3 times daily before meals Combine Maalox 120 mL,diphenhydramine 12.5 mg/5 mL 120 mL,Viscous Lidocaine 120 mL, Nystatin Susp 60 mL. May Subdivide and refill earlier if needed. atorvastatin (Lipitor) 40 MG tablet TAKE 1 TABLET BY MOUTH EVERYDAY AT BEDTIME B Complex Vitamins (B COMPLEX 1 PO) Take by mouth once daily buPROPion SR 12hr (Wellbutrin-SR) 100 MG tablet Take 1 (one) tablet by mouth 2 times daily calcitriol (Rocaltrol) 0.5 MCG capsule TAKE 1 CAPSULE BY MOUTH TWICE A DAY [id number] PO Take by mouth once daily cetirizine (ZYRTEC) 10 MG tablet Take 1 (one) tablet by mouth once daily clonazePAM (KLONOPIN) 0.5 MG tablet Take 1.5 (one and one-half) tablets by mouth once daily cyclobenzaprine (Flexeril) 5 MG tablet Take 1 (one) tablet by mouth 3 times daily as needed (musclespasms) famotidine (PEPCID) 20 MG tablet Take 1 (one) tablet by mouth 2 times daily as needed fish oil/omega-3 fatty acids (PROMEGA;CARDI-OMEGA 3) 1000 MG capsule Take 1 (one) capsule by mouth 3 times daily with meals fluticasone propionate (FLONASE) 50 MCG/ACT nasal spray Heber 2 (two) sprays into each nostril oncedaily gabapentin (Neurontin) 300 MG capsule Take 1 (one) capsule by mouth 3 times daily YEYDIK-YNKFMEHQF-LIC-C-HYAL PO Take 1 tablet by mouth 3 times daily levothyroxine (Synthroid) 112 MCG tablet TAKE 1 TABLET BY MOUTH EVERY DAY Comments: DX Code Needed . TO PHARMACY, SHE IS SUPPOSE TO BE ON SUBSTITUTE T3 FOR THREE WEEKS AND THEN NO THYROID MED FOR NUC MED TREATMENT FOR THYROID CANCER lidocaine (Lidoderm) 5 % patch Apply 2 (two) patches to skin once daily Apply patch to most painfularea and remove after 12 hours. May reapply a new patch 12 hours later. nicotine (NICODERM CQ) 14 MG/24HR patch Apply 1 (one) patch to skin once daily oxybutynin CR 24hr (Ditropan-XL) 5 MG tablet Take 1 (one) tablet by mouth once daily pantoprazole EC (Protonix) 40 MG tablet TAKE ONE TABLET BY MOUTH ONCE DAILY FOR STOMACH PARoxetine (PAXIL) 40 MG tablet Take 1 (one) tablet by mouth once daily traZODone (DESYREL) 50 MG tablet Take 1 (one) tablet by mouth at bedtime vitamin E (TOCOPHERYL) 200 UNIT capsule Take 1 (one) capsule by mouth 3 times daily Contact information for follow-up Taniya Grimes MD Specialty: Internal Medicine Relationship: PCP - General [address] DIV OF GEN INTERNAL MEDICINE [facility] [address] Next Steps: Follow up Coy Gómez MD Specialty: Neurological Surgery [address] DIV OF NEUROSURGERY [facility] [address] Next Steps: Follow up Von Ray MD, 10/06/2022 at 4:11 PM documented in this encounter Discharge Instructions * Discharge Instructions* Von Ray MD - 10/06/2022 4:15 PM CDT Numb cream Neurosurgery Inpatient Discharge Instructions If you have any questions about the instructions below please call: [phone], ask for the Neurosurgery resident stamp redemption clerk. Diet: regular diet Wound care after surgery: 1. Avoid getting your wound wet. 2. Do not cover the wound unless you were told to do so. 3. Keep completely dry for first 3 days after surgery. 4. Can shower after 3 days but dab the wound dry right after. 5. No bath tubs or swimming until 4 weeks after surgeon, and cleared by your surgeon. 6. Your wound has was closed with jess which will need to be removed in 3 weeks Eating regular diet Do not drink alcohol or take tranquilizers. Try to eat healthy foods and drink lots of water About your medicines: Take medicine you normally would take UNLESS they were changed in the hospital. Do not take medicine that has not been prescribed by your doctors. Make sure to follow the instructions on your medicine and do you best to take it as need. If you have questions regarding the medications you were sent home on please call [phone], and ask for the Neurosurgery resident stamp redemption clerk. Do not sign important papers or make important decisions while taking narcotic pain medicines. Do have a person with you that can help you and that you can trust Do ask family or friends to check up on you for a few days following surgery if you live alone. See your after visit summary (included in your discharge paper work) for a list of your medications. Activity: You have just been in the hospital, it will take time to recover fully. Make sure to rest, eat healthy foods, drink plenty of water, and take your medication as directed. Light activity is ok, and is encouraged, but do not do things which cause you to become short of breath, lift heavy objects, walk or stand for a long period of time, or make your heart beat fast. If you start to do an activity, and start to feel sick, sit down and rest. Specifically: Do not lift more than 5-10 pounds at a time (no more than a gallon of milk) Do not heavy activity until cleared by your surgeon at your follow-up appointment. Stay lightly active in side home Have someone with you while climbing/descending stairs You can go out for walks, but always have someone with you NO contact sports, no heavy lifting, no heavy activity, no swimming until you are seen for follow up. Do not drive while taking narcotic pain medicine, or other medicines which make you feel tired orsleepy. Drivin. Do not drive until you are cleared by surgeons. 2. Do not driving while on narcotic pain medications 3. Do not drive if you were told you had a seizure Follow up: 1) Please see Dr. Gómez in his office in 3 weeks for a wound checkup. - For clinic appointment information call Heather Oreilly at [phone]. - Also, you can call Outpatient Strategic Sourcing Manager at [phone] 2) Please see your family doctor for follow up regarding your health after surgery. General Postsurgical Instructions Call or find medical care if: You feel sick to your stomach (nauseous). You start to throw up (vomit). You have trouble eating or drinking. You have an fever higher than 102?? F (38.9?? C). You have constipation that is not helped by adjusting diet or drinking more water. Pain medicines are a common cause of constipation. Go to an Emergency Room or call 911 if: Redness or leaking from your incision wound. Very bad headache Trouble seeing Trouble breathing You become very confused You have new weakness, trouble speaking or understand what is being said have balance problems, or have facial drooping You have a seizure, or you pass out/lose consciousness If you have any questions about these instructions please call: [phone], ask for the Neurosurgery resident stamp redemption clerk. documented in this encounter Medications at Time of Discharge Medication Sig Dispensed Refills Start Date End Date buPROPion SR 12hr (Wellbutrin-SR) 100 MG tablet Take 1 (one) tablet by mouth 2 times daily 08/28/2022 celecoxib (CeleBREX) 200 MG capsuleIndications:Nicole favio osteoarthritis [...] 6 hours as needed Reasons: Pain 06/13/2023 al & mag hydoxide 120mL-diphenhydramine 120 mL-viscous lidocaine 120 mL-nystatin 60 mL (Radiation Oncology Cocktail) suspension Take 5 mL by mouth 3 times daily before meals Combine Maalox 120 mL,diphenhydramine 12.5 mg/5 mL 120 mL,Viscous Lidocaine 120 mL, Nystatin Susp 60 mL. May Subdivide and refill earlier if needed. 420 mL 2 09/29/2022 10/21/2022 atorvastatin (Lipitor) 40 MG tabletIndications:Hype rlipidemia, unspecified hyperlipidemia type TAKE 1 TABLET BY MOUTH EVERYDAY AT BEDTIME 30 tablet 3 05/14/2022 02/16/2023 B Complex Vitamins (B COMPLEX 1 PO) Take by mouth once daily 12/24/2022 calcitriol (Rocaltrol) 0.5 MCG capsuleIndications:Pos toperative hypothyroidism,Thyroid cancer (HCC),Hypocalcemia TAKE 1 CAPSULE BY MOUTH TWICE A DAY 60 capsule 11 02/22/2022 05/28/2023 [id number]-[id number] PO Take by mouth once daily 06/13/2023 cetirizine (ZYRTEC) 10 MG tabletIndications:Barron rgic rhinitis, unspecified seasonality, unspecified trigger Take 1 [...] fluticasone propionate (FLONASE) 50 MCG/ACT nasal spray Heber 2 (two) sprays into each nostril once daily 48 g 10/20/2021 11/25/2022 gabapentin (Neurontin) 300 MG capsuleIndications:Nicole favio osteoarthritis of left hip Take 1 (one) capsule by mouth 3 times daily 90 capsule 5 04/06/2022 11/19/2022 [id number]-FJBZEHNLI-KSI-C -HYAL PO Take 1 tablet by mouth 3 times daily 06/13/2023 levothyroxine (Synthroid) 112 MCG tabletIndications:Post operative hypothyroidism TAKE 1 TABLET BY MOUTH EVERY DAY 90 tablet 4 07/06/2022 06/14/2023 lidocaine (Lidoderm) 5 % patch Apply 2 (two) patches to skin once daily Apply patch to most painful area and remove after 12 hours. May reapply a new patch 12 hours later. 60 patch 09/25/2022 10/21/2022 naproxen (Naprosyn) 500 MG tablet Take 1 (one) tablet by mouth 2 times daily as needed 10/06/2022 10/21/2022 nicotine (NICODERM CQ) 14 MG/24HR patchIndications:Tobac co use disorder Apply 1 (one) patch to skin once daily 30 patch 6 10/29/2021 10/21/2022 oxyCODONE-acetaminophe n (Percocet) 10-325 MG tabletIndications:Cerv ical spine tumor Take 1 (one) tablet by mouth every 4 hours as needed 60 tablet 10/06/2022 10/27/2022 pantoprazole EC (Protonix) 40 MG tabletIndications:Justo roesophageal reflux disease, unspecified whether esophagitis present TAKE ONE TABLET BY MOUTH ONCE DAILY FOR STOMACH 90 tablet 05/14/2022 01/13/2023 polyethylene glycol 3350 (Miralax) 17 g packet Take 17 (seventeen) g by mouth once daily as needed for Constipation 30 packet 1 10/06/2022 10/21/2022 senna (Senokot Extra Strength) 17.2 MG Take 17.2 mg by mouth once daily 30 tablet 1 10/07/2022 01/14/2023 vitamin E (TOCOPHERYL) 200 UNIT capsule Take 1 (one) capsule by mouth 3 times daily 06/13/2023 documented as of this encounter Progress Notes * Shannon Kaye - 10/07/2022 12:12 PM CDT Discharge Strategic Sourcing Manager received request from to arrange follow-up appointment for Patientwith Neurosurgery. This scientific technical writer called [phone] and spoke with Zeny . Strategic Sourcing Manager was able to obtain a follow-up appointment for Patient with SDET Merle Parker on 11/12/22 at 3:15pm. This scientific technical writer called [phone]. Per patient verbalized understanding of future appointment. No further follow-up needs from equipment scheduler indicated at this time. Shannon Kaye, Discharge Strategic Sourcing Manager 10/08/2022 * Myra Cho - 10/07/2022 12:12 PM CDT Discharge Strategic Sourcing Manager received request from Dr. Ray to reschedule follow-up appointment for Patient with Neurosurgery . This scientific technical writer called [phone] and spoke with Juma. Strategic Sourcing Manager was able to obtain follow-up appointment for Patient with Dr. Gómez on Friday January 13, 2023 at 10:00 am. No further follow-up needs from equipment scheduler indicated at this time. Myra Cho, Discharge Strategic Sourcing Manager 10/22/2022 * Ellen Huston RN - 10/07/2022 10:03 AM CDT Problem: Fall Risk Goal: Fall risk and fall related injury risk are minimized (interventions related to the fall risk can be found in the flowsheet documentation) Outcome: Progressing Problem: Pain/Discomfort Goal: Patient exhibits reduced pain/discomfort as evidenced by pain scores Outcome: Progressing * Von Ray MD - 10/07/2022 7:03 AM CDT Neurosurgery Progress Note Elizabeth Caicedo 10/07/22 Hospital Day: 5 Subjective: Patient is a 62 year old female with metastatic??high risk papillary thyroid cancer??(eM1gV5fBp - IVb) s/p??salvage total thyroidectomy and neck dissection??on??02/05/2022??with right neck residual/recurrent disease??and metastases to the spine??s/p revision right central neck dissection. Recent/Significant Events: NAEO Objective: T: 98.2 ??F (36.8 ??C) [Temp Min: 98.2 ??F (36.8 ??C) Max: 98.8 ??F (37.1 ??C)] BP: 147/77[BP Min: 129/61 Max: 169/98] MAP: 98[MAP (mmHg) Min: 89 Max: 116] HR: 84[Pulse Min: 81 Max: 91] RR: 18[Resp Min: 18 Max: 18] Sat: 94 %[SpO2 Min: 93 % Max: 100 %] ICP: [No data recorded] EVD: n/a Input/Output: 10/06 0701 - 10/07 0700 In: 120 [P.O.:120] Out: 2400 [Urine:2400] AGUSTÍN/Other Drain: n/a Respiratory: RA Labs: Recent Labs Component Name 10/07/22 0012 WBC 8.1 HGB 9.2* HCT 27.3* PLTCOUNT 263 Recent Labs Component Name 10/07/22 0012 NA 143 POTASSIUM 3.8 CO2 25 BUN 15 CREATININE 0.56 CALCIUM 9.0 GLUCOSE 92 Recent Labs Component Name 10/02/22 1259 09/14/22 1513 INR 1.0 1.0 PTT - 27.8 Imaging: no new imaging Diet: DIET REGULAR DIETARY NUTRITION SUPPLEMENTS Fluids: None MEDICATIONS FOR CURRENT ENCOUNTER: SCHEDULED MEDICATIONS: 0.9% NaCl injection 3 mL, Intracatheter, q8h acetaminophen (Tylenol) tablet 650 mg, Oral, q6h atorvastatin (Lipitor) tablet 40 mg, Oral, AT BEDTIME buPROPion SR 12hr (Wellbutrin-SR) tablet 100 mg, Oral, BID calcitriol (Rocaltrol) capsule 0.5 mcg, Oral, bid chlorhexidine (Peridex) 0.12 % oral solution 15 mL, Mouth/Throat, BID clonazePAM (KlonoPIN) tablet 0.5 mg, Oral, QDAY famotidine (Pepcid) tablet 20 mg, Oral, BID fish oil/omega-3 fatty acids (Promega;Cardi-Madison 3) capsule 1,000 mg, Oral, TID WC fluticasone propionate (Flonase) nasal spray 2 spray, Each Nostril, QDAY gabapentin (Neurontin) capsule 300 mg, Oral, TID heparin injection 5,000 Units, Subcutaneous, q8h levothyroxine (Synthroid) tablet 112 mcg, Oral, QDAY lidocaine (Lidoderm) 5 % patch 1 patch, Transdermal, q24h loratadine (Claritin) tablet 10 mg, Oral, QDAY multivitamin daily tablet 1 tablet, Oral, QDAY nicotine (Nicoderm CQ) patch 14 mg, Transdermal, QDAY oxyBUTYnin CR 24hr (Ditropan-XL) tablet 5 mg, Oral, QDAY pantoprazole EC (Protonix) tablet 40 mg, Oral, QDAY PARoxetine (Paxil) tablet 40 mg, Oral, QDAY senna (Senokot) tablet 17.2 mg, Oral, QDAY traZODone (Desyrel) tablet 50 mg, Oral, AT BEDTIME ?? vitamin E (Tocopheryl) capsule 200 Units, Oral, TID CONTINUOUS MEDICATIONS: ?? 0.9% NaCl infusion, Intravenous, Continuous PRN MEDICATIONS: Or 0.9% NaCl injection 1-10 mL, Intracatheter, PRN bisacodyl EC (Dulcolax) tablet 5 mg, Oral, QDAY PRN cyclobenzaprine (Flexeril) tablet 5 mg, Oral, TID PRN hydrALAZINE (Apresoline) injection 10 mg, Intravenous, q30 min PRN labetalol (Normodyne; Trandate) injection 10 mg, Intravenous, q15 min PRN naloxone (Narcan) injection 0.2 mg, Intravenous, PRN naloxone (Narcan) injection 0.2 mg, Intravenous, PRN ondansetron (disintegrating) (Zofran ODT) tablet 4 mg, Oral, q6h PRN ondansetron (Zofran) injection 4 mg, Intravenous, q6h PRN oxyCODONE-acetaminophen (Percocet) 10-325 MG tablet 1 tablet, Oral, q4h PRN oxyCODONE-acetaminophen (Percocet) 5-325 MG tablet 1 tablet, Oral, q4h PRN polyethylene glycol 3350 (Miralax) packet 17 g, Oral, QDAY PRN ?? simethicone (Mylicon) chew tablet 80 mg, Oral, q6h PRN Neuro: alert, oriented x3 (person, place, time) Motor: ?? Deltoid Bicep Tricep Capital Equipment Specialist Wrist Ext Finger ext Hip Flexor Quad Hamstring Tib Ant Gastroc EHL Right 5 5 5 5 5 5 5 5 5 5 5 5 Left 1 1 4 4+ 4+ 4+ 4 5 5 5 5 5 Assessment: 62 year old female s/p C2-T2 fusion and decompression C3-C7 and resection extramedullary spine tumor. The findings were??extramedullay tumor at C4,5,6. The wound was closed with??jess. Plan: Continue to follow neurologic exam Percocet for pain control PT: home with HH Sergio SQ for VTE ppx Pepcid for GI ppx Advance diet as tolerated Activity as tolerated Likely dc today Von Ray MD 7:03 AM 10/07/22 To reach Neurosurgery for questions: From 7am to 5pm please call the [facility] for Neurosurgery From 5pm to 7am please refer to [employer] ([employer]) to reach the resident stamp redemption clerk (changes daily) Secure chat can be used for non-urgent issues only, please expect a reasonable amount of time for responses * Yaneth Camejo RN - 10/07/2022 4:15 AM CDT Problem: Tobacco Use Goal: Inpatient tobacco-use cessation counseling participation Outcome: Progressing Problem: Fall Risk Goal: Fall risk and fall related injury risk are minimized (interventions related to the fall risk can be found in the flowsheet documentation) Outcome: Progressing Problem: Pain/Discomfort Goal: Patient exhibits reduced pain/discomfort as evidenced by pain scores Outcome: Progressing Goal: Patient uses pharmacological and non-pharmacological pain management strategies. Outcome: Progressing Goal: Patient verbalizes acceptable level of pain relief and ability to engage in desired activity. Outcome: Progressing * Felicity Kwan RN - 10/06/2022 6:12 PM CDT Problem: Fall Risk Goal: Fall risk and fall related injury risk are minimized (interventions related to the fall risk can be found in the flowsheet documentation) Outcome: Progressing Problem: Pain/Discomfort Goal: Patient exhibits reduced pain/discomfort as evidenced by pain scores Outcome: Progressing Goal: Patient uses pharmacological and non-pharmacological pain management strategies. Outcome: Progressing * Torsten Lynn RN - 10/06/2022 12:23 PM CDT Case Management Initial Assessment Anticipated Discharge Date: 10/06/22 - Pending pain conctrol Transportation at Discharge: Family (Sister Isaac) Anticipated level of care at discharge: Home Anticipated level of care provider: None Prior to admission level of care: Home Prior to admit provider: None Discharge Goals and Plans: Plans: No discharge needs identified at this time. Consult Case Management if discharge planning needs arrise. 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 10/05 POSTOP EVALUATION NOTE. Procedure: C2-T2 fusion and decompression C3-C7 and resection extramedullary spine tumor [facility] referrals pending. Payer/Plan Subscriber Name Rel Member # Group # [employer] * ELIZABETH CAICEDO [id number] [facility] CLAIMS DEPARTMENT, [address] Continued Care and Services - Admitted Since 10/02/2022 Home Medical Care Service Provider Request Status Selected Services Address Phone Fax Patient Preferred [facility] Pending - Request Sent N/A [address], [facility] [address] [phone] -- [facility] Pending - Request Sent N/A [address] [facility] [id number] [phone] -- [facility] Pending - Request Sent N/A [address] [facility] [address] [id number] -- [facility] Care (formerly [facility]) Pending - Request Sent N/A [address] [facility] [email or web address] [facility] [address] -- [facility] - Pending - Request Sent N/A [address], [facility] [address] -- Josselyn Brown Pending - Request Sent N/A [address], [address] [id number] -- Lives with: Spouse Physical Limitations: Wheelchair Bound Has Medicaid workers compensation examiner through vendor: [employer]uring Requires Assistance With: Mobility;Hygiene;Housekeeping;Meal Preparation;Medication Administration;Shopping - assistance from sister and daughter Preferred Pharmacy: [facility]/pharmacy #[id number] - [phone] [facility] [address] [address] [facility] [address] Advance Directive: No Advance Directive Information Given: Refused Information Would you like assistance on completing and executing or revising an Advance Directive?: No READMISSION RISK SCORE is 14 at 4:00 PM 10/06/2022. Met with patient at bedside Family Support (name and phone): Extended Emergency Contact Information Primary Emergency Contact: Boogie Caicedo Address: [address] [place] [address] Relation: Spouse Secondary Emergency Contact: isaac jules Address: [address] [place] [address] Mobile Relation: Sister Patient or sales representative church furniture requests care coordination reach out to family or caregiver listed above regarding discharge planning and at time of discharge? No Patient/Family provided with list of resources? No Preferred Provider / High Quality Network List given?: No Reason for provider choice: Pt. choice - Pt. choice Equipment at Home: Walker-2 Wheeled List DME pt. requires but does not have.: None Case Finisher Referral: No Will continue to follow. For any questions or needs please contact: Compressor Station Chief Engineer Name/Phone number: Torsten Lynn RN [phone] * Sacha Ngo - 10/06/2022 10:31 AM CDT Music Therapy Progress Note Start Time: 1015 End Time: 1030 Music Therapy Goals: Develop rapport, Increase relaxation and Increase meaningful social interaction Intervention Provided: Provide familiar / significant music and Provide opportunities for social interaction Therapy Type: Individual Therapy Patient Response: Appropriate Affect: Mood, appropriate Treatment Modality: Music Therapy Music Therapist Sacha Ngo visited patient in [facility] room. Patient was observed sitting up in chair, alert and oriented. Patient stated that she loves music. During interventions, patient closed her eyes, breathed slowly and deeply, and mouthed familiar lyrics. At conclusion of session, no nonverbal indicators of distress observed, and patient reported increased feelings of relaxation and calm. Sacha Ngo, [facility], [place]- 10/06/2022 10:31 AM * Yaneth Camejo RN - 10/06/2022 4:39 AM CDT Problem: Fall Risk Goal: Fall risk and fall related injury risk are minimized (interventions related to the fall risk can be found in the flowsheet documentation) Outcome: Progressing Problem: Pain/Discomfort Goal: Patient exhibits reduced pain/discomfort as evidenced by pain scores Outcome: Progressing Goal: Patient uses pharmacological and non-pharmacological pain management strategies. Outcome: Progressing Goal: Patient verbalizes acceptable level of pain relief and ability to engage in desired activity. Outcome: Progressing * Fabio Sheikh APRN-CLOTHES DESIGNER - 10/06/2022 1:46 AM CDT Neurosurgery Progress Note Elizabeth Caicedo 10/06/22 Hospital Day: 4 Subjective: Patient is a 62 year old female with metastatic??high risk papillary thyroid cancer??([id number] - IVb) s/p??salvage total thyroidectomy and neck dissection??on??02/05/2022??with right neck residual/recurrent disease??and metastases to the spine??s/p revision right central neck dissection. Recent/Significant Events: NAEO Objective: T: 98.2 ??F (36.8 ??C) [Temp Min: 97.9 ??F (36.6 ??C) Max: 98.2 ??F (36.8 ??C)] BP: 150/81[BP Min: 122/64 Max: 165/83] MAP: 81[MAP (mmHg) Min: 81 Max: 107] HR: 79[Pulse Min: 77 Max: 91] RR: 20[Resp Min: 18 Max: 20] Sat: 95 %[SpO2 Min: 94 % Max: 97 %] ICP: [No data recorded] EVD: n/a Input/Output: 10/05 0701 - 10/06 0700 In: 720 [P.O.:240] Out: 1200 [Urine:1200] AGUSTÍN/Other Drain: n/a Respiratory: RA Labs: Recent Labs Component Name 10/05/22 2234 WBC 8.9 HGB 9.7* HCT 29.2* PLTCOUNT 239 Recent Labs Component Name 10/05/22 2234 NA 140 POTASSIUM 3.7 CO2 25 BUN 19 CREATININE 0.53* CALCIUM 8.6 GLUCOSE 118* Recent Labs Component Name 10/02/22 1259 09/14/22 1513 INR 1.0 1.0 PTT - 27.8 Imaging: no new imaging Diet: DIET REGULAR DIETARY NUTRITION SUPPLEMENTS Fluids: NS @ 75ml/hr MEDICATIONS FOR CURRENT ENCOUNTER: ?? SCHEDULED MEDICATIONS: ?? 0.9% NaCl injection 3 mL, Intracatheter, q8h ?? acetaminophen (Tylenol) tablet 650 mg, Oral, q6h ?? atorvastatin (Lipitor) tablet 40 mg, Oral, AT BEDTIME ?? buPROPion SR 12hr (Wellbutrin-SR) tablet 100 mg, Oral, BID ?? calcitriol (Rocaltrol) capsule 0.5 mcg, Oral, bid ?? chlorhexidine (Peridex) 0.12 % oral solution 15 mL, Mouth/Throat, BID ?? clonazePAM (KlonoPIN) tablet 0.5 mg, Oral, QDAY ?? famotidine (Pepcid) tablet 20 mg, Oral, BID ?? fish oil/omega-3 fatty acids (Promega;Cardi-Madison 3) capsule 1,000 mg, Oral, TID WC ?? fluticasone propionate (Flonase) nasal spray 2 spray, Each Nostril, QDAY ?? gabapentin (Neurontin) capsule 300 mg, Oral, TID ?? heparin injection 5,000 Units, Subcutaneous, q8h ?? levothyroxine (Synthroid) tablet 112 mcg, Oral, QDAY ?? lidocaine (Lidoderm) 5 % patch 1 patch, Transdermal, q24h ?? loratadine (Claritin) tablet 10 mg, Oral, QDAY ?? multivitamin daily tablet 1 tablet, Oral, QDAY ?? nicotine (Nicoderm CQ) patch 14 mg, Transdermal, QDAY ?? oxyBUTYnin CR 24hr (Ditropan-XL) tablet 5 mg, Oral, QDAY ?? pantoprazole EC (Protonix) tablet 40 mg, Oral, QDAY ?? PARoxetine (Paxil) tablet 40 mg, Oral, QDAY ?? senna (Senokot) tablet 17.2 mg, Oral, QDAY ?? traZODone (Desyrel) tablet 50 mg, Oral, AT BEDTIME ?? vitamin E (Tocopheryl) capsule 200 Units, Oral, TID ?? CONTINUOUS MEDICATIONS: ?? 0.9% NaCl infusion, Intravenous, Continuous ?? PRN MEDICATIONS: ?? Or ?? 0.9% NaCl injection 1-10 mL, Intracatheter, PRN ?? bisacodyl EC (Dulcolax) tablet 5 mg, Oral, QDAY PRN ?? cyclobenzaprine (Flexeril) tablet 5 mg, Oral, TID PRN ?? hydrALAZINE (Apresoline) injection 10 mg, Intravenous, q30 min PRN ?? labetalol (Normodyne; Trandate) injection 10 mg, Intravenous, q15 min PRN ?? naloxone (Narcan) injection 0.2 mg, Intravenous, PRN ?? naloxone (Narcan) injection 0.2 mg, Intravenous, PRN ?? ondansetron (disintegrating) (Zofran ODT) tablet 4 mg, Oral, q6h PRN ?? ondansetron (Zofran) injection 4 mg, Intravenous, q6h PRN ?? oxyCODONE-acetaminophen (Percocet) 10-325 MG tablet 1 tablet, Oral, q4h PRN ?? oxyCODONE-acetaminophen (Percocet) 5-325 MG tablet 1 tablet, Oral, q4h PRN ?? polyethylene glycol 3350 (Miralax) packet 17 g, Oral, QDAY PRN ?? simethicone (Mylicon) chew tablet 80 mg, Oral, q6h PRN Neuro: alert, oriented x3 (person, place, time) Motor: ?? Deltoid Bicep Tricep Capital Equipment Specialist Wrist Ext Finger ext Hip Flexor Quad Hamstring Tib Ant Gastroc EHL Right 5 5 5 5 5 5 5 5 5 5 5 5 Left 1 1 4 4+ 4+ 4+ 4 5 5 5 5 5 Assessment: 62 year old female s/p C2-T2 fusion and decompression C3-C7 and resection extramedullary spine tumor. The findings were??extramedullay tumor at C4,5,6. The wound was closed with??jess. Plan: Continue to follow neurologic exam Percocet for pain control PT: home with HH Hepairarnoldo SQ for VTE ppx Pepcid for GI ppx SPL evaluation- mild aspiration risk Advance diet as tolerated Activity as tolerated Fabio Sheikh APRN-CLOTHES DESIGNER 1:46 AM 10/06/22 To reach Neurosurgery for questions: From 7am to 5pm please call the [facility] for Neurosurgery From 5pm to 7am please refer to [employer] ([employer]) to reach the resident stamp redemption clerk (changes daily) Secure chat can be used for non-urgent issues only, please expect a reasonable amount of time for responses * Natasha Bar, PT - 10/05/2022 4:23 PM CDT [facility] Physical Medicine and Rehabilitation Physical Therapy Progress Note Patient: Elizabeth Caicedo Med Record Number: [id number] Date of : 1960 Age: [age] year old PPE worn by staff: gloves;mask - procedural;eye protection PPE worn by patient: gown - patient, clean;socks - clean Recommendations: Discharge PT Discharge Recommendations: Patient would benefit from ongoing therapy with home health Recommended Transportation Method: Wheelchair Van * Patient currently using Wheeled Walker and has equipment at home. No equipment needs if d/c home. SUBJECTIVE: Subjective: pt agreeable for therapy in room Pain Assessment: Pain Location #1 Pain Scale/Observation: Numeric (0-10) Pain Rating Score #1: 0 Sedation Level #1: 1-Awake and alert Goal Numeric Pain Scale: 0 Functional Goal: Ability to adequately rest;Walk with improved pain control;Participate in therapies Functional Goal Met?: Yes Pain Location : Back;Neck Pain Orientation: Posterior Pain Quality: Constant;Aching Aggravating Factors: Movement;Inspiration Relieved By: Medications Pain Intervention(s): Medication (see MAR);Non-pharmacological Non-pharmacological interventions: Education;Emotional Support;Reposition Behaviors/Assumed Pain Present : Quiet;Calm PRECAUTIONS: Weight Bearing Status: Lower Extremity (no restrictions for LE's) Activity Level: (amb ad emmy) Spine Precautions: Yes Spine Precautions: (log roll, no lifting) Other Precautions: fall risk due to IV OBJECTIVE: At start of therapy session, patient found in bed and with no alarm General Appearance: short average weight adult female with jess midline posterior C2-T2 LDAs: IV's: Peripheral line Vitals: (*Assess the 3 levels of oxygen saturations both for room air and 02 unless rest on room air is 88% or less). Rest BP: HR: Sp02 Sp02 Room Air L O2 Ex/Gait/Activity Without 02 BP: HR: Sp02 Room Air Ex/Gait/Activity With 02 BP: HR: Sp02 L O2 Post Activity BP: HR: Sp02 Sp02 L O2 Room Air Observations: NAD/ see nursing documentation/ pt denied dizziness with change in position Mental Status/Cognition: Level of Consciousness-Adult: Alert Orientation Level: Oriented X4 Cognition: Follows Commands-Consistent;Attention/concentration-normal for age Attention Span: Appears intact Memory: Appears intact Following Commands: Follows all commands and directions without difficulty Safety Judgement: Good awareness of safety precautions Awareness of Errors: Assistance required to identify errors made Problem Solving: Assistance required to implement solutions Mobility: A gait belt and non-slip socks were used for all out of bed activity this date. Bed Mobility: Rolling: Minimum Assistance to Left Supine to Sit: Minimal Assistance with HOB in semi-fowlers position Sit to Supine: Minimal Assistance Transfers: Sit to Stand: Minimal Assistance Stand to Sit: Minimal Assistance Bed to Chair: Minimal Assistance to Left Type of Transfer: (amb with w/w) Transfer Device: Gait belt Gait: Weight Bearing Status: Lower Extremity (no restrictions for LE's) Distance Ambulated: 20 FEET (x2 in room with rest break) Ambulation: Assistive Device: Gait Belt;Walker-2 Wheeled Ambulation: Level of Assistance: Minimum Assistance Ambulation: Gait Deviations: Base of Support - Decreased;Cassie - Decreased;Heel Strike - Decreased;Increased Weight Bearing through Upper Extremity;Push Off - Decreased (stigg trunk-cervical, pt uses R hand to place L on handgrip of w/w, L forefoot toe steppage gait pattern) Balance: Balance Scales/Tests Used: Sitting: Static/Dynamic;Standing: Static/Dynamic Sitting - Static: Good;Good - Sitting - Dynamic: Fair + Standing - Static: Fair;With Both Upper Extremity's Support Standing - Dynamic: Fair -;With Both Upper Extremity's Support ACTIVITY TOLERANCE: Patient's activity tolerance: fair plus. TREATMENT/INTERVENTIONS: bed mobility training, transfer training, gait training, balance activities and practiced multiple functional sit to stand from EOB and recliner EDUCATION: While performing PT, Patient was instructed in:functional mobility training, self-care training, safety awareness/fall precautions , home exercise program, spine precautions , use of adaptive equipment, discharge planning, use of call light, progression of therapy Presented to patient who demonstrates Fair understanding of instructions given. ASSESSMENT: Patient would benefit from additional Physical Therapy sessions to achieve the following functionalgoals to enhance independence. Short Term Goals: Goal Formation With patient Patient will perform bed mobility with stand by assist Patient will transfer sit to/from stand with stand by assist Patient will transfer bed to/from chair with stand by assist Patient will ambulate 50 feet with stand by assist and appropriate AD Patient will ascend/descent 3 steps with minimal assist Feather Renovator Goal(s): Patient to be independent with functional mobility and self-care and should be able to safely discharge to prior level of care. INFORMED CONSENT TO TREATMENT: Plan of care including recommended therapy, goals and frequency, discussed with patient who understands and agrees to proceed. Equipment Issued: gait belt and green waffle cushion for chair Plan: Patient continues to benefit from skilled therapy services., Continue with goals as established. If patient is discharged from the facility, this note serves as a discharge summary if further physical therapy visits did not occur. Refer to filed flowsheet for further details. Following therapy session, patient left in patient bedside chair, with green waffle cushion in place, with chair alarm on, with call light within reach, with RNPravin aware, with therapy cues visible on white board, BLE's elevated with pillow under legs to float heels, side tray in front of pt fordinner coming soon. 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 Anxiety [...] Thyroid cancer (CMS/HCC) 10/14/2020 ??? Tracheal mass In addition to the 1:1 evaluation of the patient, additional eval time was spent completing the chart review prior to the assessment, completing the multidisciplinary plan of care and education plan post evaluation and communicating results of the eval to other treatment team members. PPE: PPE worn by staff: gloves;mask - procedural PPE worn by patient: gown - patient, clean Impressions: Patient's swallow function assessed at bedside. Patient completed trial of all consistencies. Patient demonstrated delayed initiation, increased A-P transit of bolus and delayed cough/ throat clear with both liquids and solid consistencies. Patient demonstrated overt s/s only with large bites and sips, however, but does okay when taking small bites/sips and alternating liquids/solids. ST recommends for patient to continue with regular diet and thin liquids and to choose softer foods at this time. ST will follow patient to assess diet tolerance and upgrade diet when able. Recommendations: Diet Liquids Recommendation: Thin/ Thin (0) Diet Solids Recommendation: Regular/Regular (7) Recommended Form of Meds: Whole;With puree Compensatory Swallowing Strategies: 90 Degrees elevation for all oral intake;Periodic supervision with meals;Alternate solids and liquids;Small bites/sips;Eat/Feed slowly Recommended Tests/Consults: Recommendations: Dysphagia Treatment Discharge Recommendations: Speech therapy is recommended to improve swallow function. SUBJECTIVE: Patient Goals: To feel better and go home Pain Assessment: No pain reported at this time OBJECTIVE: Level of Consciousness: alert Orientation Level: oriented x 4 Positioning: Upright in bed Respiratory Status: room air Oral/Motor: Dentition: Normal Oral Hygiene : Within Functional Limits Labial/Facial: Within Functional Limits Tongue: Within Functional Limits Vocal Quality: Impaired Velopharyngeal Status: Within Functional Limits Oral Motor Coordination: Within Functional Limits Controls Secretions: Yes Swallow Trials: Ice chips: Presentation: Spoon-Assisted Oral: Delayed Initiation;Increased Anterior to Posterior Transit Pharyngeal: Within Functional LImits Thin Liquid: Presentation: Cup-Self Fed;Straw-Self Fed Oral: Delayed Initiation Pharyngeal: Throat Clearing - Delayed (only w/ large sips) Puree: Presentation: Spoon-Self Fed Oral: Delayed Initiation Pharyngeal: Within Functional LImits Solid: Presentation: Assisted Oral: Delayed Initiation Pharyngeal: Throat Clearing - Delayed Assessment: Risk For Aspiration: Mild Primary Diagnostic Impression - Oral: Mild Primary Diagnostic Impression - Pharyngeal: Mild Education/Interventions: While performing STEWARD/STEWARDESS DINING ROOM, Patient was instructed in: goals of treatment , diet/liquid recommendations, swallowing strategies/aspiration precautions and clinical signs of aspiration . Patient demonstrated Good understanding of instructions given. Physician and Nurse contacted regarding results of swallow evaluation and recommendations. INFORMED CONSENT TO TREATMENT: Plan of care including recommended therapy, goals and frequency, discussed with patient who understands and agrees to proceed. Short Term Goals Patient will tolerate recommended food and liquid consistencies without clinical signs of aspiration., Patient will understand clinical signs of aspiration and aspiration precautions., Patient will follow recommended swallowing strategies. Feather Renovator Goal (s): Patient to be independent/baseline with functional mobility and self care and be able to safely discharge to prior level of care. Alli Schmid M.A., CCC-STEWARD/STEWARDESS DINING ROOM Speech Language Pathologist [phone] * Pravin Dennis RN - 10/05/2022 9:36 AM CDT Problem: Tobacco Use Goal: Inpatient tobacco-use cessation counseling participation Outcome: Progressing Problem: Fall Risk Goal: Fall risk and fall related injury risk are minimized (interventions related to the fall risk can be found in the flowsheet documentation) Outcome: Progressing Problem: Pain/Discomfort Goal: Patient exhibits reduced pain/discomfort as evidenced by pain scores Outcome: Progressing Goal: Patient uses pharmacological and non-pharmacological pain management strategies. Outcome: Progressing Goal: Patient verbalizes acceptable level of pain relief and ability to engage in desired activity. Outcome: Progressing Problem: Balance Goal: LTG - Patient will maintain balance to allow for safe mobility Outcome: Progressing Continue plan of care * Von Ray MD - 10/04/2022 11:51 PM CDT Neurosurgery Progress Note Elizabeth Caicedo 10/04/22 Hospital Day: 2 Subjective: Patient is a 62 year old female metastatic high risk papillary thyroid cancer ([id number] - IVb) s/psalvage total thyroidectomy??and neck dissection on 02/05/2022 with right neck residual/recurrent disease??and metastases to the spine s/p revision right central neck dissection. Significant Events: No acute events. Objective: T: 98.9 ??F (37.2 ??C) [Temp Min: 98 ??F (36.7 ??C) Max: 99.3 ??F (37.4 ??C)] BP: 146/70[BP Min: 103/41 Max: 168/83] MAP: 87[MAP (mmHg) Min: 64 Max: 114] HR: 90[Pulse Min: 86 Max: 105] RR: 18[Resp Min: 5 Max: 21] Sat: 93 %[SpO2 Min: 88 % Max: 95 %] ICP: [No data recorded] EVD: N/A Input/Output: 10/03 700 - 04/02 0700 In: 2798.5 [P.O.:625; I.V.:1908.5] Out: 2555 [Urine:2500; Drains:55] AGUSTÍN/Other Drain: removed 10/04 Respiratory: RA Labs: Recent Labs Component Name 10/04/22 0007 WBC 9.2 HGB 9.4* HCT 28.7* PLTCOUNT 212 Recent Labs Component Name 10/04/22 0007 NA 141 POTASSIUM 3.9 CO2 26 BUN 17 CREATININE 0.59 CALCIUM 7.6* GLUCOSE 117* Recent Labs Component Name 10/02/22 1259 09/14/22 1513 INR 1.0 1.0 PTT - 27.8 Imaging: uprights ordered Diet: DIET REGULAR DIETARY NUTRITION SUPPLEMENTS Fluids: none MEDICATIONS FOR CURRENT ENCOUNTER: SCHEDULED MEDICATIONS: 0.9% NaCl injection 3 mL, Intracatheter, q8h acetaminophen (Tylenol) tablet 650 mg, Oral, q6h atorvastatin (Lipitor) tablet 40 mg, Oral, AT BEDTIME buPROPion SR 12hr (Wellbutrin-SR) tablet 100 mg, Oral, BID calcitriol (Rocaltrol) capsule 0.5 mcg, Oral, bid chlorhexidine (Peridex) 0.12 % oral solution 15 mL, Mouth/Throat, BID clonazePAM (KlonoPIN) tablet 0.5 mg, Oral, QDAY famotidine (Pepcid) tablet 20 mg, Oral, BID fish oil/omega-3 fatty acids (Promega;Cardi-Madison 3) capsule 1,000 mg, Oral, TID WC fluticasone propionate (Flonase) nasal spray 2 spray, Each Nostril, QDAY gabapentin (Neurontin) capsule 300 mg, Oral, TID heparin injection 5,000 Units, Subcutaneous, q8h levothyroxine (Synthroid) tablet 112 mcg, Oral, QDAY lidocaine (Lidoderm) 5 % patch 1 patch, Transdermal, q24h loratadine (Claritin) tablet 10 mg, Oral, QDAY multivitamin daily tablet 1 tablet, Oral, QDAY nicotine (Nicoderm CQ) patch 14 mg, Transdermal, QDAY oxyBUTYnin CR 24hr (Ditropan-XL) tablet 5 mg, Oral, QDAY pantoprazole EC (Protonix) tablet 40 mg, Oral, QDAY PARoxetine (Paxil) tablet 40 mg, Oral, QDAY senna (Senokot) tablet 17.2 mg, Oral, QDAY traZODone (Desyrel) tablet 50 mg, Oral, AT BEDTIME ?? vitamin E (Tocopheryl) capsule 200 Units, Oral, TID CONTINUOUS MEDICATIONS: ?? 0.9% NaCl infusion, Intravenous, Continuous PRN MEDICATIONS: Or 0.9% NaCl injection 1-10 mL, Intracatheter, PRN bisacodyl EC (Dulcolax) tablet 5 mg, Oral, QDAY PRN cyclobenzaprine (Flexeril) tablet 5 mg, Oral, TID PRN hydrALAZINE (Apresoline) injection 10 mg, Intravenous, q30 min PRN labetalol (Normodyne; Trandate) injection 10 mg, Intravenous, q15 min PRN naloxone (Narcan) injection 0.2 mg, Intravenous, PRN naloxone (Narcan) injection 0.2 mg, Intravenous, PRN ondansetron (disintegrating) (Zofran ODT) tablet 4 mg, Oral, q6h PRN ondansetron (Zofran) injection 4 mg, Intravenous, q6h PRN polyethylene glycol 3350 (Miralax) packet 17 g, Oral, QDAY PRN ?? simethicone (Mylicon) chew tablet 80 mg, Oral, q6h PRN General: Neuro: Patient generally weak due to drowsiness and pain medication. Grossly stable from preop exam (shownbelow) ? Deltoid Bicep Tricep [employer] Equipment Specialist Wrist Ext Finger ext Hip Flexor Quad Hamstring Tib Ant Gastroc EHL Right 5 5 5 5 5 5 5 5 5 5 5 5 Left 0 1 4 4+ 4+ 4+ 4 5 5 5 5 5 Assessment: 62 year old female s/p C2-T2 fusion and decompression C3-C7 and resection extramedullary spine tumor. The findings were extramedullay tumor at C4,5,6. The wound was closed with jess. Plan: Follow exam - Pain control - PT OT- home with HH - HSQ - Advance diet as tolerated - Activity as tolerated - DC BEATER ENGINEER today - SPL evaluation - Still has efrem Ray MD 11:51 PM 10/04/22 * Jarocho Higgins RN - 10/04/2022 9:34 PM CDT Problem: Fall Risk Goal: Fall risk and fall related injury risk are minimized (interventions related to the fall risk can be found in the flowsheet documentation) Outcome: Progressing Problem: Pain/Discomfort Goal: Patient exhibits reduced pain/discomfort as evidenced by pain scores Outcome: Progressing * Von Ray MD - 10/04/2022 4:07 PM CDT AGUSTÍN drain removed at bedside. Area cleaned with chloraprep. Wound closed with monocryl. Patient tolerated procedure well. Von Ray MD 10/04/2022 4:28 PM * Yarelis Campa RN - 10/04/2022 4:05 PM CDT Problem: Tobacco Use Goal: Inpatient tobacco-use cessation counseling participation Outcome: Progressing Problem: Fall Risk Goal: Fall risk and fall related injury risk are minimized (interventions related to the fall risk can be found in the flowsheet documentation) Outcome: Progressing Problem: Pain/Discomfort Goal: Patient exhibits reduced pain/discomfort as evidenced by pain scores Outcome: Progressing Goal: Patient uses pharmacological and non-pharmacological pain management strategies. Outcome: Progressing Goal: Patient verbalizes acceptable level of pain relief and ability to engage in desired activity. Outcome: Progressing Problem: Balance Goal: LTG - Patient will maintain balance to allow for safe mobility Outcome: Progressing * Tiana Blue RN - 10/04/2022 10:26 AM CDT Patient transferred to room 715 with all patient belongings. Report given to JOSY Santoyo. All questions answered. Patient's , Boogie, notified of transfer. * Rod Berg MD - 10/04/2022 8:53 AM CDT Neurosurgery Progress Note Elizabeth Caicedo 10/04/22 Hospital Day: 2 Subjective: Patient is a 62 year old female metastatic high risk papillary thyroid cancer ([id number] - IVb) s/psalvage total thyroidectomy??and neck dissection on 02/05/2022 with right neck residual/recurrent disease??and metastases to the spine s/p revision right central neck dissection. Significant Events: No acute events. Objective: T: 98.5 ??F (36.9 ??C) [Temp Min: 97.4 ??F (36.3 ??C) Max: 98.5 ??F (36.9 ??C)] BP: 127/62[BP Min: 97/55 Max: 137/64] MAP: 87[MAP (mmHg) Min: 70 Max: 105] HR: 96[Pulse Min: 87 Max: 99] RR: 15[Resp Min: 9 Max: 23] Sat: 90 %[SpO2 Min: 90 % Max: 96 %] ICP: [No data recorded] EVD: N/A Input/Output: 10/03 0701 - 10/04 0700 In: 928.7 [P.O.:300; I.V.:363.7] Out: 2054 [Urine:2000; Drains:55] AGUSTÍN/Other Drain: 55cc Respiratory: RA Labs: Recent Labs Component Name 10/04/22 0007 WBC 9.2 HGB 9.4* HCT 28.7* PLTCOUNT 212 Recent Labs Component Name 10/04/22 0007 NA 141 POTASSIUM 3.9 CO2 26 BUN 17 CREATININE 0.59 CALCIUM 7.6* GLUCOSE 117* Recent Labs Component Name 10/02/22 1259 09/14/22 1513 INR 1.0 1.0 PTT - 27.8 Imaging: uprights ordered Diet: DIET REGULAR DIETARY NUTRITION SUPPLEMENTS Fluids: none MEDICATIONS FOR CURRENT ENCOUNTER: SCHEDULED MEDICATIONS: 0.9% NaCl injection 3 mL, Intracatheter, q8h acetaminophen (Tylenol) tablet 650 mg, Oral, q6h atorvastatin (Lipitor) tablet 40 mg, Oral, AT BEDTIME buPROPion SR 12hr (Wellbutrin-SR) tablet 100 mg, Oral, BID calcitriol (Rocaltrol) capsule 0.5 mcg, Oral, bid chlorhexidine (Peridex) 0.12 % oral solution 15 mL, Mouth/Throat, BID clonazePAM (KlonoPIN) tablet 0.5 mg, Oral, QDAY famotidine (Pepcid) tablet 20 mg, Oral, BID fish oil/omega-3 fatty acids (Promega;Cardi-Madison 3) capsule 1,000 mg, Oral, TID WC fluticasone propionate (Flonase) nasal spray 2 spray, Each Nostril, QDAY gabapentin (Neurontin) capsule 300 mg, Oral, TID heparin injection 5,000 Units, Subcutaneous, q8h levothyroxine (Synthroid) tablet 112 mcg, Oral, QDAY lidocaine (Lidoderm) 5 % patch 1 patch, Transdermal, q24h loratadine (Claritin) tablet 10 mg, Oral, QDAY multivitamin daily tablet 1 tablet, Oral, QDAY nicotine (Nicoderm CQ) patch 14 mg, Transdermal, QDAY oxyBUTYnin CR 24hr (Ditropan-XL) tablet 5 mg, Oral, QDAY pantoprazole EC (Protonix) tablet 40 mg, Oral, QDAY PARoxetine (Paxil) tablet 40 mg, Oral, QDAY senna (Senokot) tablet 17.2 mg, Oral, QDAY traZODone (Desyrel) tablet 50 mg, Oral, AT BEDTIME ?? vitamin E (Tocopheryl) capsule 200 Units, Oral, TID CONTINUOUS MEDICATIONS: ?? 0.9% NaCl infusion, Intravenous, Continuous PRN MEDICATIONS: Or 0.9% NaCl injection 1-10 mL, Intracatheter, PRN bisacodyl EC (Dulcolax) tablet 5 mg, Oral, QDAY PRN cyclobenzaprine (Flexeril) tablet 5 mg, Oral, TID PRN hydrALAZINE (Apresoline) injection 10 mg, Intravenous, q30 min PRN labetalol (Normodyne; Trandate) injection 10 mg, Intravenous, q15 min PRN naloxone (Narcan) injection 0.2 mg, Intravenous, PRN naloxone (Narcan) injection 0.2 mg, Intravenous, PRN ondansetron (disintegrating) (Zofran ODT) tablet 4 mg, Oral, q6h PRN ondansetron (Zofran) injection 4 mg, Intravenous, q6h PRN polyethylene glycol 3350 (Miralax) packet 17 g, Oral, QDAY PRN ?? simethicone (Mylicon) chew tablet 80 mg, Oral, q6h PRN General: Neuro: Patient generally weak due to drowsiness and pain medication. Grossly stable from preop exam (shownbelow) ? Deltoid Bicep Tricep Capital Equipment Specialist Wrist Ext Finger ext Hip Flexor Quad Hamstring Tib Ant Gastroc EHL Right 5 5 5 5 5 5 5 5 5 5 5 5 Left 0 1 4 4+ 4+ 4+ 4 5 5 5 5 5 Assessment: 62 year old female POD 1 s/p C2-T2 fusion and decompression C3-C7 and resection extramedullary spine tumor. The findings were extramedullay tumor at C4,5,6. The wound was closed with jess. Plan: Follow exam - Pain control - DC drain today likely - TTF - PT OT - HSQ - Advance diet as tolerated - Activity as tolerated - Uprights when able Rod Berg MD 1:22 AM 10/04/22 * Boni English, PT - 10/03/2022 9:37 AM CDT [facility] Physical Medicine and Rehabilitation Physical Therapy Initial Evaluation Note Patient: Elizabeth Caicedo [facility] Record Number: [id number] Date of : 1960 Age: [age] year old PPE worn by staff: gloves;mask - procedural PPE worn by patient: gown - patient, clean;socks - clean Recommendations: Discharge PT Discharge Recommendations: Patient would benefit from ongoing therapy with home health In addition to the 1:1 evaluation of the patient, additional eval time was spent completing the chart review prior to the assessment, completing the multidisciplinary plan of care and education plan post evaluation and communicating results of the eval to other treatment team members. Patient currently using Wheeled Walker and has equipment at home. No equipment needs if d/c home. Will continue to assess AD needs. Nurse and Occupational Therapy contacted regarding patient status and/or discharge plan. Physician Orders: Evaluation and Treat PRECAUTIONS: Weight Bearing Status: (No WB restrictions) Activity Level: (Ambulate / up ad emmy) DIAGNOSIS: Patient Active Problem List: Psychophysiologic insomnia Chronic [...] metastatic to bone (CMS/HCC) Cervical spine tumor Past Medical History: Diagnosis Date ??? Anxiety [...] Thyroid cancer (CMS/HCC) 10/14/2020 ??? Tracheal mass SUBJECTIVE: Subjective: I can talk but I can not walk! PATIENT GOALS: Patient's Primary Concern: Return home Home Situation: Type of Residence: Private Residence Lives with:: Spouse Steps to Enter: 3 Handrails: Outdoor Home Structure: One Story Primary Bathroom: First Floor Bathroom : Walk in Shower Equipment at Home: Walker-2 Wheeled Prior Level of Functioning: Prior Level of Function Mobility: Ambulate-In Home ;With Assistive Device (with wheeled walker) Fallen Within 6 Mos: 2 (the walker just gets away from me sometimes) Have Help at Home?: Yes, there is help at home now Who assists you at home?: Friends/Family;Family Care Agency How often is assistance provided?: 4 days a week, 6 hours a day Oxygen at Home: No Activity at Home: Sedentary Pain Assessment: Pain Location #1 Pain Scale/Observation: Numeric (0-10) Pain Rating Score #1: 0 Sedation Level #1: 1-Awake and alert OBJECTIVE: At start of therapy session, patient found in bed. General Appearance: Patient is adult female found lying in bed in NAD LDAs: IV's: Peripheral line and Drains Edema: no edema noted in bilateral lower extremities Vitals: (*Assess the 3 levels of oxygen saturations both for room air and 02 unless rest on room air is 88% or less). Rest BP: 120/57 (85) HR: 98 Sp02 Sp02 94% Room Air Ex/Gait/Activity Without 02 BP: 111/75 (84) HR: 95 Sp02 94% Room Air Post Activity BP: 108/75 (84) HR: 93 Sp02 Sp02 94% Room Air Observations: Vitals continuously monitored via ICU monitoring. Patient on RA. No signs or symptomsof distress with activity/positional change. Patient denying SOB/lightheadedness/dizziness throughout session. Mental Status/Cognition: Level of Consciousness-Adult: Alert;Eyes Open Spontaneously Orientation Level: Oriented X4 Cognition: Follows Commands-Consistent;Attention/concentration-normal for age;Processing-Appropriate Attention Span: Appears intact Memory: Appears intact Following Commands: Follows all commands and directions without difficulty Safety Judgement: Good awareness of safety precautions Awareness of Errors: Good awareness of errors made ROM: RLE: AROM WFL LLE: AROM WFL Strength: RLE:WNL LLE: WNL Tone: RLE: no abnormal tone noted LLE: no abnormal tone noted Coordination: RLE: not tested LLE: not tested Sensation: RLE: intact, no complaints of numbness or tingling LLE: intact, no complaints of numbness or tingling Mobility: A gait belt and non-slip socks were used for all out of bed activity this date. Bed Mobility: Supine to Sit: Minimal Assistance with HOB in semi-fowlers position Sit to Supine: Minimal Assistance Transfers: Sit to Stand: (Pt declined OOB mobility 2/2 pain & fatigue) Gait: Weight Bearing Status: (No WB restrictions) Distance Ambulated: (Pt declined OOB mobility 2/2 pain & fatigue) Balance: Balance Scales/Tests Used: Sitting: Static/Dynamic Sitting - Static: Good - Sitting - Dynamic: Fair + ACTIVITY TOLERANCE: Patient's activity tolerance: good TREATMENT/INTERVENTIONS: evaluation and bed mobility training EDUCATION: While performing PT, Patient was instructed in:functional mobility training, safety awareness/fall precautions , use of adaptive equipment, discharge planning, use of call light Presented to patient who demonstrates Good understanding of instructions given. INFORMED CONSENT TO TREATMENT: Plan of care including recommended therapy, goals and frequency, discussed with patient who understands and agrees to proceed. ASSESSMENT: Patient would benefit from additional Physical Therapy sessions to achieve the following functionalgoals to enhance independence. Short Term Goals: Goal Formation With patient Patient will perform bed mobility with stand by assist Patient will transfer sit to/from stand with stand by assist Patient will transfer bed to/from chair with stand by assist Patient will ambulate 50 feet with stand by assist and appropriate AD Patient will ascend/descent 3 steps with minimal assist Feather Renovator Goal(s): Patient to be independent with functional mobility and self-care and should be able to safely discharge to prior level of care. Equipment Issued: gait belt Plan: Plan: Gait training Transfer training Stair training Assistive device training Endurance training Bed mobility training Balance training Energy conservation techniques Safety awareness If patient is discharged from the facility, this note serves as a discharge summary if further physical therapy visits did not occur. Refer to filed flowsheet for further details. Following therapy session, patient left in bed, with call light within reach, with RNTiana. * Tiana Blue RN - 10/03/2022 7:18 AM CDT Problem: Tobacco Use Goal: Inpatient tobacco-use cessation counseling participation Outcome: Progressing Problem: Fall Risk Goal: Fall risk and fall related injury risk are minimized (interventions related to the fall risk can be found in the flowsheet documentation) Outcome: Progressing Problem: Pain/Discomfort Goal: Patient exhibits reduced pain/discomfort as evidenced by pain scores Outcome: Progressing Goal: Patient uses pharmacological and non-pharmacological pain management strategies. Outcome: Progressing Goal: Patient verbalizes acceptable level of pain relief and ability to engage in desired activity. Outcome: Progressing * Von Ray MD - 10/03/2022 5:41 AM CDT Neurosurgery Progress Note Elizabeth Caicedo 10/03/22 Hospital Day: 1 Subjective: Patient is a 62 year old female metastatic high risk papillary thyroid cancer ([id number] - IVb) s/psalvage total thyroidectomy??and neck dissection on 02/05/2022 with right neck residual/recurrent disease??and metastases to the spine s/p revision right central neck dissection. Significant Events: NAEO Objective: T: 97.4 ??F (36.3 ??C) [Temp Min: 96.9 ??F (36.1 ??C) Max: 99.8 ??F (37.7 ??C)] BP: 112/67[BP Min: 97/55 Max: 171/96] MAP: 74[MAP (mmHg) Min: 70 Max: 126] HR: 99[Pulse Min: 73 Max: 99] RR: 11[Resp Min: 6 Max: 30] Sat: 96 %[SpO2 Min: 78 % Max: 100 %] ICP: [No data recorded] EVD: N/A Input/Output: 10/02 0701 - 10/03 0700 In: 3419.4 [P.O.:950; I.V.:2469.4] Out: 3010 [Urine:2700; Drains:160] AGUSTÍN/Other Drain:160 Respiratory: RA Labs: Recent Labs Component Name 10/02/22 2325 WBC 11.9* HGB 12.0 HCT 35.1 PLTCOUNT 297 Recent Labs Component Name 10/02/22 2325 NA 139 POTASSIUM 4.5 CO2 21* BUN 16 CREATININE 0.61 CALCIUM 7.9* GLUCOSE 129* Recent Labs Component Name 10/02/22 1259 09/14/22 1513 INR 1.0 1.0 PTT - 27.8 Imaging: none to review Diet: DIET REGULAR Fluids: none MEDICATIONS FOR CURRENT ENCOUNTER: ?? SCHEDULED MEDICATIONS: ?? 0.9% NaCl injection 3 mL, Intracatheter, q8h ?? acetaminophen (Tylenol) tablet 650 mg, Oral, q6h ?? atorvastatin (Lipitor) tablet 40 mg, Oral, AT BEDTIME ?? buPROPion SR 12hr (Wellbutrin-SR) tablet 100 mg, Oral, BID ?? calcitriol (Rocaltrol) capsule 0.5 mcg, Oral, bid ?? chlorhexidine (Peridex) 0.12 % oral solution 15 mL, Mouth/Throat, BID ?? clonazePAM (KlonoPIN) tablet 0.75 mg, Oral, QDAY ?? famotidine (Pepcid) tablet 20 mg, Oral, BID ?? fish oil/omega-3 fatty acids (Promega;Cardi-Madison 3) capsule 1,000 mg, Oral, TID WC ?? fluticasone propionate (Flonase) nasal spray 2 spray, Each Nostril, QDAY ?? gabapentin (Neurontin) capsule 300 mg, Oral, TID ?? levothyroxine (Synthroid) tablet 112 mcg, Oral, QDAY ?? lidocaine (Lidoderm) 5 % patch 1 patch, Transdermal, q24h ?? loratadine (Claritin) tablet 10 mg, Oral, QDAY ?? multivitamin daily tablet 1 tablet, Oral, QDAY ?? nicotine (Nicoderm CQ) patch 14 mg, Transdermal, QDAY ?? oxyBUTYnin CR 24hr (Ditropan-XL) tablet 5 mg, Oral, QDAY ?? pantoprazole EC (Protonix) tablet 40 mg, Oral, QDAY ?? PARoxetine (Paxil) tablet 40 mg, Oral, QDAY ?? senna (Senokot) tablet 17.2 mg, Oral, QDAY ?? traZODone (Desyrel) tablet 50 mg, Oral, AT BEDTIME ?? vitamin E (Tocopheryl) capsule 200 Units, Oral, TID ?? CONTINUOUS MEDICATIONS: ?? 0.9% NaCl infusion, Intravenous, Continuous ?? PRN MEDICATIONS: ?? Or ?? 0.9% NaCl injection 1-10 mL, Intracatheter, PRN ?? bisacodyl EC (Dulcolax) tablet 5 mg, Oral, QDAY PRN ?? cyclobenzaprine (Flexeril) tablet 5 mg, Oral, TID PRN ?? hydrALAZINE (Apresoline) injection 10 mg, Intravenous, q30 min PRN ?? labetalol (Normodyne; Trandate) injection 10 mg, Intravenous, q15 min PRN ?? naloxone (Narcan) injection 0.2 mg, Intravenous, PRN ?? naloxone (Narcan) injection 0.2 mg, Intravenous, PRN ?? ondansetron (disintegrating) (Zofran ODT) tablet 4 mg, Oral, q6h PRN ?? ondansetron (Zofran) injection 4 mg, Intravenous, q6h PRN ?? polyethylene glycol 3350 (Miralax) packet 17 g, Oral, QDAY PRN ?? simethicone (Mylicon) chew tablet 80 mg, Oral, q6h PRN General: Neuro: Patient generally weak due to drowsiness and pain medication. Grossly stable from preop exam (shownbelow) ? Deltoid Bicep Tricep Capital Equipment Specialist Wrist Ext Finger ext Hip Flexor Quad Hamstring Tib Ant Gastroc EHL Right 5 5 5 5 5 5 5 5 5 5 5 5 Left 0 1 3 4+ 4+ 4+ Antalgic but 4+ 5 5 5 5 5 Assessment: 62 year old female POD 1 s/p C2-T2 fusion and decompression C3-C7 and resection extramedullary spine tumor. The findings were extramedullay tumor at C4,5,6. The wound was closed with jess. Plan: Follow exam - Pain control - Advance diet as tolerated - Activity as tolerated - Uprights when able Von Ray MD 8:19 AM 10/03/22 * Von Ray MD - 10/02/2022 3:55 PM CDT NEUROSURGERY POST-OP NOTE : SUBJECTIVE Elizabeth R Edison is POD 0 s/p C2-T2 fusion and decompression C3-C7 and resection extramedullary spine tumor. PHYSICAL EXAM Patient Vitals for the past 6 hrs: Temp Pulse Resp BP BP Method 10/02/22 1500 -- 84 13 147/65 Automatic 10/02/22 1430 97 ??F (36.1 ??C) 85 13 151/79 Automatic 10/02/22 1345 -- 78 -- 150/70 -- 10/02/22 1340 -- 78 -- -- -- 10/02/22 1335 -- 77 -- -- -- 10/02/22 1330 -- 75 -- 142/71 -- 10/02/22 1325 -- 75 -- 131/83 -- 10/02/22 1323 -- 75 -- 131/83 -- 03/31/23 1320 -- 73 -- 163/85 -- 10/02/22 1315 -- 79 -- 148/79 -- 10/02/22 1310 -- 92 -- 171/96 -- 10/02/22 1305 -- 92 -- 168/89 -- 10/02/22 1302 -- 91 -- 152/98 -- 10/02/22 1300 -- 89 -- 152/98 -- 10/02/22 1255 -- 92 -- -- -- 10/02/22 1250 -- 86 -- -- -- 10/02/22 1249 96.9 ??F (36.1 ??C) 87 -- 143/81 -- 10/02/22 1245 -- 86 -- 143/81 -- 10/02/22 1240 -- 86 -- 170/84 -- 10/02/22 1235 -- 86 -- 163/86 -- 10/02/22 1230 -- 89 -- 162/88 -- 10/02/22 1227 -- 87 -- (!) 161/101 -- 10/02/22 1225 -- 87 -- (!) 161/101 -- 10/02/22 1220 -- 84 -- 151/91 -- 10/02/22 1215 -- 84 -- 149/89 -- 10/02/22 1210 -- 80 -- 143/87 -- 10/02/22 1205 -- 79 -- 144/83 -- 10/02/22 1201 -- 80 -- 132/82 -- 10/02/22 1200 -- 80 -- 132/82 -- 10/02/22 1155 -- 79 -- 115/72 -- 10/02/22 1153 -- 75 -- 115/72 -- 10/02/22 1150 -- 74 -- 135/85 -- 10/02/22 1145 -- 78 30 121/86 Automatic 10/02/22 1140 -- 80 22 129/80 -- 10/02/22 1135 -- 81 19 123/99 -- 10/02/22 1131 -- 80 26 -- -- 10/02/22 1130 -- 81 12 136/88 -- 03/31/23 1129 -- 82 21 -- -- 10/02/22 1128 -- 82 10 -- -- 10/02/22 1127 -- 80 21 -- -- 10/02/22 1126 97.5 ??F (36.4 ??C) 81 10 133/78 Automatic Diet: DIET REGULAR Respiratory: NC IV Fluids: 0.9% NaCl IV, , Last Rate: 75 mL/hr at 10/02/22 1346 HYDROmorphone, EXAM: General: sleeping, awakens easily Neuro: Patient generally weak due to drowsiness and pain medication. Grossly stable from preop exam (shownbelow) ?? Deltoid Bicep Tricep Capital Equipment Specialist Wrist Ext Finger ext Hip Flexor Quad Hamstring Tib Ant Gastroc EHL Right 5 5 5 5 5 5 5 5 5 5 5 5 Left 0 1 3 4+ 4+ 4+ Antalgic but 4+ 5 5 5 5 5 Imaging: none to review ASSESSMENT/PLAN: Elizabeth Woody Caicedo is POD 0 s/p C2-T2 fusion and decompression C3-C7 and resection extramedullary spine tumor. The findings were extramedullay tumor at C4,5,6. The wound was closed with jess. - Follow exam - Pain control - Advance diet as tolerated - Activity as tolerated Von Ray MD 10/02/2022 3:55 PM * Tiana Blue RN - 10/02/2022 3:12 PM CDT Problem: Tobacco Use Goal: Inpatient tobacco-use cessation counseling participation Outcome: Progressing Problem: Fall Risk Goal: Fall risk and fall related injury risk are minimized (interventions related to the fall risk can be found in the flowsheet documentation) Outcome: Progressing Problem: Pain/Discomfort Goal: Patient exhibits reduced pain/discomfort as evidenced by pain scores Outcome: Progressing Goal: Patient uses pharmacological and non-pharmacological pain management strategies. Outcome: Progressing Goal: Patient verbalizes acceptable level of pain relief and ability to engage in desired activity. Outcome: Progressing documented in this encounter H&P Notes * Alexopoulos, Carloz, MD - 10/02/2022 6:14 AM CDT NEUROSURGERY Preop H&P Chief Complaint (CC): HISTORY OF PRESENT ILLNESS (HPI): Elizabeth Caicedo is a 62 year old female with metastatic high risk papillary thyroid cancer ([id number] - IVb) s/p salvage total thyroidectomy??requiring??sacrifice of right??RLN/tracheal resection/quentin nastamosis,??bilateral lateral??and central neck dissection on 02/05/2022 with right neck residual/recurrent disease and metastases to the spine s/p revision right central neck dissection. She was referred for cervical spine local metastasis. She has neck pain mostly in the evening with pain extending to both shoulders with numbness in the left arm. The left hand she finds difficult to control. She does report some throat/neck 'tightness' since surgery, but denies dysphagia, odynophagia, shortness of breath. Her voice comes and goes, currently is quite hoarse but for a period of time after surgery went back to close to normal. Following abnormal whole body thyroid scan recent MRI c-spine dem onstrated osseous metastasis in the left aspect of the C5 and C6 vertebrae with tumor extension into the epidural space and left neural foramina from C4-5 to C6-7 and possible encasement/abutment of the left vertebral artery. She is presenting today for elective surgical resection. Other pmh significant for HLD, GERD (well controlled), anxiety, depression, and tobacco use. Present on Admission: ??? Cancer, metastatic to bone (CMS/HCC) ??? Cellulitis ??? Chronic fatigue ??? Complete paralysis of right vocal cord ??? Chronic pain after cancer treatment ??? Depression, unspecified ??? Headache ??? High cholesterol ??? Hoarseness ??? Left shoulder pain ??? Neoplasm of uncertain behavior of skin ??? Nicotine dependence ??? Obsessive-compulsive disorder ??? Other psoriasis ??? Other seborrheic keratosis ??? Other hypoparathyroidism (CMS/HCC) ??? Urinary incontinence ??? Tracheal mass ??? Thyroid cancer (CMS/HCC) ??? Snoring ??? Psychophysiologic insomnia ??? Primary osteoarthritis of left hip ??? Postoperative hypothyroidism ??? Lymphadenopathy of head and neck region [facility] NEURO SPINAL SURGERY HIGH RISK VARIABLES Metastatic Cancer - Secondary malignant neoplasm of unspecified digestive organ - malignant neoplasm of thyroid Yes Past Medical History: Diagnosis Date ??? Anxiety [...] ??? Snoring ??? SOB (shortness of breath) 08/06 thyroid mass ??? Thyroid cancer (CMS/HCC) 10/14/2020 ??? Tracheal mass Past Surgical History: Procedure Laterality Date ??? Bilateral Tubal Ligation (BTL) ??? Section ??? ENDOSCOPY, COLON, DIAGNOSTIC no polyp ??? ENT SURGERY N/A 08/19/2020 N/A; TOTAL THYROIDECTOMY WITH CENTRAL NECK DISSECTION, RIGHT AND LEFT NECK DISSECTIONS ??? ENT SURGERY N/A 08/19/2020 N/A; TRACHEAL TUMOR RESECTION ??? ENT SURGERY Right 02/05/2022 Right; EXCISION RIGHT CENTRAL NECK MASS ??? LARYNGOSCOPY N/A 08/19/2020 N/A; DIRECT LARYNGOSCOPY WITH BIOPSY ??? Polypectomy cervical Current Facility-Administered Medications Medication ??? 0.9% NaCl infusion rate and volume ??? 0.9% NaCl injection 3 mL And ??? 0.9% NaCl injection 1-10 mL Current Outpatient Medications Medication ??? acetaminophen (TYLENOL) 500 MG tablet ? ? al & mag hydoxide 120mL-diphenhydramine 120 mL-viscous lidocaine 120 mL- nystatin 60 mL (Radiation Oncology Cocktail) suspension ??? atorvastatin (Lipitor) 40 MG tablet ??? B Complex Vitamins (B COMPLEX 1 PO) ??? buPROPion SR 12hr (Wellbutrin-SR) 100 MG tablet ??? calcitriol (Rocaltrol) 0.5 MCG capsule ??? ONGPZIG-TVVJQBIOT-NOXL PO ??? celecoxib (CELEBREX) 200 MG capsule ??? cetirizine (ZYRTEC) 10 MG tablet ??? clonazePAM (KLONOPIN) 0.5 MG tablet ??? cyclobenzaprine (Flexeril) 5 MG tablet ??? famotidine (PEPCID) 20 MG tablet ??? fish oil/omega-3 fatty acids (PROMEGA;CARDI-OMEGA 3) 1000 MG capsule ??? fluticasone propionate (FLONASE) 50 MCG/ACT nasal spray ??? gabapentin (Neurontin) 300 MG capsule ??? QOECVZ-ABDMMWVJJ-EFO-C-HYAL PO ??? levothyroxine (Synthroid) 112 MCG tablet ??? lidocaine (Lidoderm) 5 % patch ??? naproxen (Naprosyn) 500 MG tablet ??? nicotine (NICODERM CQ) 14 MG/24HR patch ??? oxybutynin CR 24hr (Ditropan-XL) 5 MG tablet ??? pantoprazole EC (Protonix) 40 MG tablet ??? PARoxetine (PAXIL) 40 MG tablet ??? traZODone (DESYREL) 50 MG tablet ??? vitamin E (TOCOPHERYL) 200 UNIT capsule Allergies Allergen Reactions ??? Kiwi Extract Anaphylaxis ??? Shellfish Allergy Other Passed out after eating lobster but can eat shrimp and crab Social History Tobacco Use ??? Smoking status: Heavy Smoker Packs/day: 0.25 Years: 40.00 Pack years: 10.00 Types: Cigarettes Start date: 07/22/1973 ??? Smokeless tobacco: Never ??? Tobacco comments: 1-2 cigarettes per day current smoker Substance Use Topics ??? Alcohol use: No [...] Negative Ears, nose, mouth, throat, and face: Positive for hoarseness Respiratory: Negative Cardiovascular: Negative Gastrointestinal: Negative Genitourinary: Negative Hematologic/lymphatic: Negative Musculoskeletal:Positive for chronic neck pain Neurological: Positive for weakness Behavioral/Psych: Positive for depressed mood PHYSICAL EXAM General: awake, alert, appropriate Neuro: a Deltoid Bicep Tricep Capital Equipment Specialist Wrist Ext Finger ext Hip Flexor Quad Hamstring Tib Ant Gastroc EHL Right 5 5 5 5 5 5 5 5 5 5 5 5 Left 0 1 3 4+ 4+ 4+ Antalgic but 4+ 5 5 5 5 5 Biceps triceps Patellar Achilles Right 2+ 2+ 2+ NT Left 0 1 2+ NT Antalgic gait Labs: Recent Labs Component Name 09/14/22 1513 WBC 6.7 HGB 13.1 HCT 39.2 PLTCOUNT 256 Recent Labs Component Name 09/14/22 1513 08/14/22 1521 05/01/22 1317 POTASSIUM 3.9 3.6 4.3 CO2 27 23 25 BUN 12 13 24 CREATININE 0.93 1.11* 1.05* GLUCOSE 98 84 97 CALCIUM 9.0 8.3* 9.3 EGFR 69* 56* 60* Recent Labs Component Name 09/14/22 1513 INR 1.0 RADIOLOGY PROCEDURE: MRI CERVICAL SPINE WWO CONT, DATE/TIME OF EXAM: 08/21/2022 3:59 PM, LOCATION [facility] INDICATION: C73: Thyroid cancer (CMS/HCC) E89.0: Postoperative hypothyroidism ADDITIONAL CLINICAL INFORMATION: Ordering Provider Reason For Exam: C SPINE LESION ON NUC MED STUDY FOR THYROID CANCER Focal uptake in anteriorly in the left aspect of the mid cervical spine COMPARISON: Thyroid whole body scan from 08/19/2022, CT neck soft tissues from 01/28/2022, PET/CT from 12/24/2021 and MRI cervical spine from 08/17/2020 were reviewed. EXAMINATION: MRI of the cervical spine without and with intravenous contrast TECHNIQUE: MRI of the the cervical spine was performed without and with intravenous contrast according to standard protocol. CONTRAST: Gadobutrol 1 mmol/ml iv ssm so: 7 ml FINDINGS: There is enhancing bone marrow signal abnormality in the left aspect of the C5 and C6 vertebral bodies (hyperintense FLAIR weighted and hypointense T1 weighted signal), compatible with metastasis. There is associated apparent cortical erosion and involvement of the left posterior arches. Large volume enhancing soft tissue is seen filling and widening the left C4-5, C5-6 and C6-7 neural foramina. Ventral and left lateral epidural tumor is seen at C5 and C6 vertebral levels resulting in moderate spinal canal stenosis and cord impingement. There is anterior lateral extension with likely encasement of the left vertebral artery (for example series 5 image 23). Diffuse edema and enhancement is seen in the left scalene muscles. These findings are new since MRI from 08/17/2020. There is no corresponding lytic or sclerotic lesion on the CT from 01/28/2022. No other osseous metastases are seen in the cervical or included upper thoracic spine. There is no pathologic compression fracture. Multilevel degenerative changes are seen. There is straightening of the cervical spine with slight anterolisthesis of C5 relative to C4 and C6. There is moderate spinal canal stenosis at C4-5 and C5-6 due to degenerative changes and epidural tumor. This results in spinal cord compression. No gross cord edema is seen. There is moderate to severe stenosis of right C4-5 and C6-7 neural foramina. Remainder of the spinal cord is unremarkable. There is no spinal cord enhancement. IMPRESSION: 1.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 [...] spinal cord compression. No demonstrated cord edema. Assessment: Elizabeth Caicedo is a 62 year old female with metastatic high risk papillary thyroid cancer ([id number] - IVb) s/p salvage total thyroidectomy??requiring??sacrifice of right??RLN/tracheal resection/quentin nastamosis,??bilateral lateral??and central neck dissection on 02/05/2022 with right neck residual/recurrent disease and metastases to the spine s/p revision right central neck dissection, here for elective surgery for treatment of 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 Recent MRI c-spine demonstrated osseous metastasis in the left aspect of the C5 and C6 vertebrae with tumor extension into the epidural space and left neural foramina from C4-5 to C6-7 and possible encasement/abutment of the left vertebral artery. She is presenting today for elective surgical resection. We discussed the goals of anysurgical procedure including decompression and debulking of tumor from the spinal canal and epidural space. Plans for cervical 2 to thoracic 2 posterior spinal instrumented fusion, laminectomies for decompression C5 to C7 and resection of spinal osseous tumor extending from C4 to C7. The proceduresgoal will be diagnosis, stabilization, decompression and separation surgery for possible radiosurgery treatment. Risks and benefits discussed and will proceed. Inform consent obtained. Carloz Corea MD 10/02/2022 6:24 AM documented in this encounter Consult Notes * Ananya El RN - 10/07/2022 12:12 PM CDT Home care referral has been received & initiated for patient. At this time the referral is pending demographics, benefits, & PCP to follow. Thank you for this referral. Bina El RN [facility] [place] [employer] [facility] [phone] * Ananya El RN - 10/07/2022 12:12 PM CDT VERIFICATION HAS FINISHED & REFERRAL COMPLETED. Bina El RN [facility] [place] [employer] [facility] [phone] * Darian Carrillo MSW - 10/06/2022 3:39 PM CDTAssociated Order(s): IP CONSULT TO SEMICONDUCTOR PACKAGES TESTER SW aware this pt's plan is for home health. CM is aware of this discharge plan. SW to continue to follow for any other SW needs. MARIO Machuca 10/06/2022 * JordanelysiaDariela, RD/LD - 10/03/2022 3:39 PM CDTAssociated Order(s): IP CONSULT TO NUTRITIONAL SERV Initial Nutrition Assessment Brief Synopsis: Patient is at Nutrition Risk; Specific criteria can be found in assessment below Nutrition Plan: Regular diet order +Ensure Plus High Protein (1.5 kcal) TID w/ meals (350 kcal, 20 grams pro, 40 grams CHO) Recommendations to Physician: Consult STEWARD/STEWARDESS DINING ROOM d/t pt reporting having difficulty with swallowing Comments: RD consulted for MST of 2 w/ 2-13# weight loss, per nurse nutrition screen. PO intake 0-25% of meals. Per weight hx, 10% BW loss indicated per documentation. RD did not observe significant signs of fat/muscle wasting in assessment. Pt reported decent appetite, but c/o some difficulty withswallowing sandwich earlier today. Pt states that she is able to drink liquids, but has a hard timewith solid foods. Pt agreed to having ONS sent to promote better intake. Pt denies N/V/D/C at this time. 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 Pt receiving daily senna. Labs reviewed; Ca (7.9). RD will continue to follow. Assessment: Med/Surg History and Clinical Diagnoses: 62 year old female metastatic high risk papillary thyroid cancer ([id number] - IVb) s/p salvage total thyroidectomy and neck dissection on 02/05/2022 with right neck residual/recurrent disease and metastases to the spine s/p revision right central neck dissection Height: 157.5 cm (5' 2) Weight: 63.7 kg (140 lb 6.4 oz) BMI: Body mass index is 25.68 kg/m??. BMI Range: Normal IBW/lb (Calculated) Female: 110, Recent Weights/Methods 07/02/2022 1031 08/12/2022 1453 08/21/2022 1338 09/02/2022 0900 09/02/2022 1029 10/02/2022 0629 Weight: 70.3 kg (155 lb) 70.3 kg (155 lb) 71.9 kg (158 lb 9.6 oz) 70.3 kg (155 lb) 70.5 kg (155 lb 6.4 oz) 63.7 kg (140 lb 6.4 oz) Weight Method (Utilize Scales): -- -- -- -- -- Standing Wt Comments: reviewed; indication of 10% BW loss in 1 month; unable to validate recent weights Diet order accuracy Current diet order: Regular Current supplement order: none Nutrition recommendation: alter/change nutrition order P.O.Intake for the past 48 hrs: % Meal Taken Av.3 % Min: 0 % Max: 25 % Supplement(s) Consumed- Last 48 hours None Food Allergies: Shellfish;Other (Comments) (kiwi extract) GI Concerns: None Chewing/Swallowing: None Pain affecting intake: No Estimated Needs: KCAL: 8692-1055 (25-30 kcal/kg ABW) Protein (g): 76-127 (1.2-2.0 g/kg ABW) Fluid (ml): 1 ml/kcal Needs based on: Kcal/kg- (Comment) (63.7kg) Recommended Access Route: PO Laboratory values: Recent Labs Component Name 10/02/22 2325 10/02/22 1430 09/14/22 1513 08/14/22 1521 05/01/22 1317 03/19/22 1231 07/24/20 1427 03/07/20 1519 BUN 16 16 12 13 24 14 - 13 CREATININE 0.61 0.75 0.93 1.11* 1.05* 0.81 - 0.8 NA 139 141 140 138 135* 140 - 143 POTASSIUM 4.5 4.1 3.9 3.6 4.3 4.2 - 3.9 CL 105 106 103 103 99 103 - 106 CO2 21* 23 27 23 25 25 - 33* GLUCOSE 129* 143* 98 84 97 94 - 57* CALCIUM 7.9* 7.8* 9.0 8.3* 9.3 8.9 - 8.8 PROT - - - - - - - 7.1 ALB - - - 3.7 4.0 4.0 - 3.8 TBILI - - - - - - - 0.5 ALKPHOS - - - - - - - 94 ALT - - - - - - - 26 AST - - - - - - - 23 ANIONGAP 18 16 14 16 15 16 - 8 BCR 26* 21 13 12 23 17 - 16 OSMOLALITY 291 296 290 285 284 290 - 294 AGRATIO - - - - - - - 1.2 EGFR >90 89* 69* 56* 60* 82* - >60 - = values in this interval not displayed. Medications: Current Facility-Administered Medications Medication ??? 0.9% NaCl infusion ??? 0.9% NaCl injection 3 mL And ??? 0.9% NaCl injection 1-10 mL ??? acetaminophen (Tylenol) tablet 650 mg ??? atorvastatin (Lipitor) tablet 40 mg ??? bisacodyl EC (Dulcolax) tablet 5 mg ??? buPROPion SR 12hr (Wellbutrin-SR) tablet 100 mg ??? calcitriol (Rocaltrol) capsule 0.5 mcg ??? chlorhexidine (Peridex) 0.12 % oral solution 15 mL ??? [START ON 10/04/2022] clonazePAM (KlonoPIN) tablet 0.5 mg ??? cyclobenzaprine (Flexeril) tablet 5 mg ??? famotidine (Pepcid) tablet 20 mg ??? fish oil/omega-3 fatty acids (Promega;Cardi-Madison 3) capsule 1,000 mg ??? fluticasone propionate (Flonase) nasal spray 2 spray ??? gabapentin (Neurontin) capsule 300 mg ??? heparin injection 5,000 Units ??? hydrALAZINE (Apresoline) injection 10 mg ??? HYDROmorphone (Dilaudid) 10 mg/50 mL BEATER ENGINEER ??? labetalol (Normodyne; Trandate) injection 10 mg ??? levothyroxine (Synthroid) tablet 112 mcg ??? lidocaine (Lidoderm) 5 % patch 1 patch ??? loratadine (Claritin) tablet 10 mg ??? multivitamin daily tablet 1 tablet ??? naloxone (Narcan) injection 0.2 mg ??? naloxone (Narcan) injection 0.2 mg ??? nicotine (Nicoderm CQ) patch 14 mg ??? ondansetron (disintegrating) (Zofran ODT) tablet 4 mg Or ??? ondansetron (Zofran) injection 4 mg ??? oxyBUTYnin CR 24hr (Ditropan-XL) tablet 5 mg ??? pantoprazole EC (Protonix) tablet 40 mg ??? PARoxetine (Paxil) tablet 40 mg ??? polyethylene glycol 3350 (Miralax) packet 17 g ??? senna (Senokot) tablet 17.2 mg ??? simethicone (Mylicon) chew tablet 80 mg ??? traZODone (Desyrel) tablet 50 mg ??? vitamin E (Tocopheryl) capsule 200 Units Skin/Wound: Procedure Incision to back Nutrition Care Process (1) Nutrition Diagnostic Statement: Inadequate protein-energy intake related to:: decreased appetite;increased energy or protein requirements as evidenced by:: estimated intake insufficient to meet requirements Nutrition Diagnostic Statement Progress: New diagnostic statement established Nutrition Intervention: Meals and snacks:;Medical Food Supplements: Monitoring: GI, PO intake, WT, labs, medications Evaluation: Nutrition Goal: Intake will be improved to 75% or greater of meals/snacks Nutrition Goal Timeframe: Throughout stay Nutrition Goal Progress: New goal established Ascom: [id number] documented in this encounter OR Notes * Brief Op Note - Coy Gómez MD - 10/02/2022 7:30 AM CDT Brief Op Note Procedure: C2-T2 fusion and decompression C3-C7 and resection extramedullary spine tumor Patient Name: Elizabeth Caicedo Date of Service: 10/02/2022 Pre-Op Diagnosis: spine tumor Post-Op Diagnosis: extramedullary cervical spine tumor Surgeon(s) and Role: * Coy Gómez MD - Primary * Carloz Corea MD - Resident - Assisting * Brady Guerrero MD - Resident - Assisting Face Cleaner(s): none Anesthesia Type: general ETT Complications: none Findings: extramedullar tumor on the left at cervical levels 4,5,6 with adherence to the dura and involvement of cervical 5 and 6 nerve roots EBL: 150 mL Urine Output : 250 mL IV Fluid Intake: 1500 cc crystalloid Drains: Drain 1 Round Accordian Back (Active) Specimen(s): ID Type Source Tests Collected by Time Destination A : extradural tumor Biopsy, Excision Soft Tissue, Other PATHOLOGY TISSUE Coy Gómez MD 10/02/2022 9:59 AM Implant(s): Implant Name Type Inv. Item Serial No. Broadcast Maintenance Technician Lot No. [id number] No. Used Action Savage Bone Void Ca Slf Stimulan Savage Bone Void 10Cc 20Cc Ca Slf Stimulan Biocompstes [id number] N/A 1 Implanted Savage Bone Void 10Ml Dbm Grftn Algrf Ptty Savage Bone Void 10Ml Dbm Grftn Algrf Ptty Medtronic Inc N/A 1Implanted Screw 3.5Mm 16Mm Ma Spne Bone Screw 3.5Mm 16Mm Ma Spne Bone Medtronic Inc N/A 4 Implanted Screw 3.5Mm 20Mm Ma Spne Bone Screw 3.5Mm 20Mm Ma Spne Bone Medtronic Inc N/A 1 Implanted Screw 3.5Mm 18Mm Ma Spne Bone Screw 3.5Mm 18Mm Ma Spne Bone Medtronic Inc N/A 1 Implanted Screw 3.5Mm 22Mm Ma Spne Bone Screw 3.5Mm 22Mm Ma Spne Bone Medtronic Inc N/A 1 Implanted Screw 4Mm 20Mm Ma Spne Bone Screw 4Mm 20Mm Ma Spne Bone Medtronic Inc N/A 1 Implanted Screw 4.5Mm 28Mm Ma Spne Bone Screw 4.5Mm 28Mm Ma Spne Bone Medtronic Inc N/A 2 Implanted Screw 4.5mm 32mm Ma Spne Infnt Nonster Screw 4.5mm 32mm Ma Spne Infnt Nonster Medtronic Inc N/A 1 Implanted Screw Set M6 Spne Oc Upr Thor Infnt Screw Set M6 Spne Oc Upr Thor Infnt Medtronic Sofamor [place] Spine N/A 11 Implanted Donovan Spnl 240Mm 3.5Mm Std Donovan Spnl 240Mm 3.5Mm Std Medtronic Inc N/A 1 Implanted Coy Gómez MD * Operative - Coy Gómez MD - 10/02/2022 7:30 AM CDT OPERATIVE REPORT NAME: Elizabeth Caicedo : 1960 [facility]: [id number] DATE OF SERVICE: 10/02/22 PROCEDURE PERFORMED: 1. Cervical 2 to thoracic 2 posterior spinal instrumented fusion with laminectomy for partial resection of extramedullary tumor from cervical levels 3-7, intraoperative neuromonitoring, use of autograft, allograft and vancomycin beads, placement of subfacial drain PRE OP DIAGNOSIS: Extramedullary cervical spine tumor POST OP DIAGNOSIS: same SURGEON: Coy Gómez MD ASSISTANTS: Dr. Ana Corea, Dr. Cheli Guerrero ANESTHESIA: General endotracheal anesthesia INDICATIONS FOR PROCEDURE: Elizabeth Caicedo??is a 61 year old??female??with aggressive PTC ([id number]) s/p thyroidectomy, tracheal resection/reanastamosis, bilateral neck dissections and central neck dissections (2021), with right neck recurrence??s/p revision right central neck dissection. She was referred for cervical spine local metastasis. She has neck pain mostly in the evening with pain extending to both shoulders withnumbness in the left arm. The left hand she finds difficult to control. No incontinence. She does have significant left hip pain that makes ambulting difficult. On exam she had 0/5 strength in left shoulder abduction and 3-4+ strength in the remainder of the left arm with numbness in the C5 and 6 di stributions on the left with loss of reflexes at the biceps on the left. She did use a 4WW due to hip pain. MRI demonstrated: 1.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 of [...] spinal cord compression. No demonstrated cord edema. Due to spinal instability from tumor invasion and tumor infiltrating the lateral nerve roots threatening the cervical spine discussed neoadjuvant radiotherapy with radiation oncology which was performed 2 weeks prior to s . We discussed the above procedure with the goal of decompression and instrumented fusion of the cervical spine and decompression of as much extramedullary tumor as possible and she was consented for todays . PROCEDURE IN DETAIL: Following a pre-operative checklist patient was taken to theatre and general anesthesia achieved. Patient was placed in a prone position in pins on a Korey open top table. A linear incision in the midline was marked in order to give us access to the appropriate anatomy and infiltrated with local anesthetic with epinephrine. [employer] were inserted for somatic somatosensory evoked potential monitoring and motor evoked potential monitoring as well as direct stimulation. The back of the neck was prepped and draped in usual fashion. After surgical timeout sharp dissection and monopolar cautery were used to carry subperiosteal dissection out over the subaxial spine extending to cervical level 2 and thoracic level 2. A spinous process clamp was affixed to the C2 spinous process and an O-arm spin obtained and used for stereotactic screw insertion. Very briefly a check pilot hole was drilled in the left standard entry point for pars screw at C2. A stereotactic drill was used to create a check pilot hole into the pars followed by stereotactic And stereotactic screw insertion. After removing every instrument the check pilot hole was palpated in order to ensure that there were no bony breaches. In that mannerwe were able to insert bilateral C2 pars screws bilateral pedicle screws at C3 with unilateral pedicle screws at right C4-6 and 7. We were also able to insert bilateral pedicle screws at thoracic level 1 and 2. Following her screw insertion we began our cervical laminectomy using a high- speed drillto create an osteotomy at the junction of the lamina and lateral mass bilaterally removing the spinous processes of cervical level 3-7 en bloc. I ensured that there was no extra medullary tumor attest to the bony elements and removed all soft tissue eventually morselized in the bone for autograft later on. We then completed our laminectomy and foraminotomies bilaterally by using curettes and Kerrison rongeurs to decompress the thecal sac and nerve roots. We did notice some soft tissue at largely adherent to the dura on the left side extending into the foramen of the cervical levels 5 and 6. We were able to dissect between the plane of the extra medullary tumor of the dura at several sites and send that for frozen section and some eventual for permanent pathology. We did extend our decompression by completely unroofing the cervical nerve roots at 5 and 6 in an effort to try to determine if we could sacrifice those nerve roots and completely resect the tumor off of the dura. We noticed t hat the tumor had infiltrated into the nerve roots and was very adherent to the dura and thus we did not think that the benefits outweighed the risks of completely resecting that dura and the nerve roots as we were still uncertain whether there was any neurologic function left in those cervical level 5 and nerve roots on the left side. We did use a stimulation and were able to obtain positive controls on the right but known positive controls on the left and areas where we would expect and thus we were unsure whether we would permanently remove function by removing those nerve roots and as we did not expect that there would be a oncologic benefit we elected to remove all easily dissectible soft tissue and satisfied ourselves with our decompression. Satisfied with our tumor resection decompression we contoured to titanium rods and inserted them into the pedicle screws bilaterally finaltightening. X-rays confirmed adequate positioning of her instrumentation. EMG and nerve conduction studies were stable throughout the procedure. We then decorticated all available bone and placed a combination of demineralized bone matrix crushed autograft and vancomycin beads in the gutters bilaterally. The wound was washed out and closed ended subfascial drain tunneled inferiorly and sutured tothe skin and connected to Hemovac drain. The wound was closed with layered Vicryl jess of the skin. I intend to remove the jess after 3 weeks as the patient had recently undergone radiation ther apy. All counts were correct at the end of the case. DRAINS: Cervical subfacial EBL: 150 ml Coy Gómez MD 10/02/22 10:37 AM Implant Name Type Inv. Item Serial No. Broadcast Maintenance Technician Lot No. LRB No. Used Action Savage Bone Void Ca Slf Stimulan Savage Bone Void 10Cc 20Cc Ca Slf Stimulan Biocompstes [id number] N/A 1 Implanted Savage Bone Void 10Ml Dbm Grftn Algrf Ptty Savage Bone Void 10Ml Dbm Grftn Algrf Ptty Medtronic Inc N/A 1Implanted Screw 3.5Mm 16Mm Ma Spne Bone Screw 3.5Mm 16Mm Ma Spne Bone Medtronic Inc N/A 4 Implanted Screw 3.5Mm 20Mm Ma Spne Bone Screw 3.5Mm 20Mm Ma Spne Bone Medtronic Inc N/A 1 Implanted Screw 3.5Mm 18Mm Ma Spne Bone Screw 3.5Mm 18Mm Ma Spne Bone Medtronic Inc N/A 1 Implanted Screw 3.5Mm 22Mm Ma Spne Bone Screw 3.5Mm 22Mm Ma Spne Bone Medtronic Inc N/A 1 Implanted Screw 4Mm 20Mm Ma Spne Bone Screw 4Mm 20Mm Ma Spne Bone Medtronic Inc N/A 1 Implanted Screw 4.5Mm 28Mm Ma Spne Bone Screw 4.5Mm 28Mm Ma Spne Bone Medtronic Inc N/A 2 Implanted Screw 4.5mm 32mm Ma Spne Infnt Nonster Screw 4.5mm 32mm Ma Spne Infnt Nonster Medtronic Inc N/A 1 Implanted Screw Set M6 Spne Oc Upr Thor Infnt Screw Set M6 Spne Oc Upr Thor Infnt Medtronic Sofamor [place]anek Spine N/A 11 Implanted Donovan Spnl 240Mm 3.5Mm Std Donovan Spnl 240Mm 3.5Mm Std [employer] N/A 1 Implanted documented in this encounter Plan of Treatment Upcoming Encounters Date Type Department Care Team (Late st Contact Info) Description 07/25/2024 10:00 AM BUS DISPATCHER INTERSTATE Office Visit [facility] - Endocrinology [address] [place] [phone] Yosi Bustamante MD [address] [place] [address] 2L [place] [address] 07/26/2024 10:00 AM BUS DISPATCHER INTERSTATE Appointment [facility] [address] [place] [address] Neri Delgado MD [address] [place] [address] 07/26/2024 10:00 AM BUS DISPATCHER INTERSTATE Office [facility] - ENT [address] [place] [phone] Myra Farmer, ZAIN [address] [place] [address] 2L [place] [address] 07/26/2024 11:15 AM BUS DISPATCHER INTERSTATE Office Visit [facility] - ENT [address] [place] [phone] Neri Delgado MD [address] [place] [address] 08/02/2024 2:20 PM BUS DISPATCHER INTERSTATE Appointment [facility] [address] [place] [address] 08/02/2024 3:00 PM BUS DISPATCHER INTERSTATE Office Visit [facility] - Hematology/Oncology [address] [place] [phone] Remi Beckett MD [address] [place] [address] 08/18/2024 1:45 PM BUS DISPATCHER INTERSTATE Office Visit [facility] - ENT [address] [place] [phone] [place] [address] [place] [phone] Scheduled Referrals Name Type Priority Associated Diagnoses Orde r Schedule Referral to Home Health Care Outpatient Referral Routine Cancer, metastatic to bone (HCC) Cervical spine tumor Ordered: 10/05/2022 documented as of this encounter Procedures Procedure Name Priority Date/Time Associated Diagnosis Comments CARDIAC EKG ORDER 10/09/2022 12: 58 PM CDT CBC W AUTO DIFFERENTIAL STAT 10/07/2022 12:12 AM CDT Cancer, metastatic to bone (HCC) BASIC METABOLIC PANEL (CALCIUM TOTAL) STAT 10/07/2022 12:12 AM CDT Cancer, metastatic to bone (HCC) PHOSPHORUS BLOOD STAT 10/07/2022 12:1 2 AM CDT Cancer, metastatic to bone (HCC) MAGNESIUM BLOOD STAT 10/07/2022 12:12 AM CDT Cancer, metastatic to bone (HCC) PREPARE RBC LEUKOREDUCED UNIT STAT 10/06/2022 1:17 AM CDT Thyroid cancer (HCC) CBC W AUTO DIFFERENTIAL STAT 10/05/2022 10:34 PM CDT Cancer, metastatic to bone (HCC) BASIC METABOLIC PANEL (CALCIUM TOTAL) STAT 10/05/2022 10:34 PM CDT Cancer, metastatic to bone (HCC) PHOSPHORUS BLOOD STAT 10/05/2022 10:3 4 PM CDT Cancer, metastatic to bone (HCC) MAGNESIUM BLOOD STAT 10/05/2022 10:34 PM CDT Cancer, metastatic to bone (HCC) CBC W AUTO DIFFERENTIAL STAT 10/05/2022 4:36 AM CDT Cancer, metastatic to bone (HCC) BASIC METABOLIC PANEL (CALCIUM TOTAL) STAT 10/05/2022 4:36 AM CDT Cancer, metastatic to bone (HCC) PHOSPHORUS BLOOD STAT 10/05/2022 4:36 AM CDT Cancer, metastatic to bone (HCC) MAGNESIUM BLOOD STAT 10/05/2022 4:36 AM CDT Cancer, metastatic to bone (HCC) XR THORACIC SPINE 3VW Routine 10/04/2022 9:40 AM CDT Cervical spine tumor XR CERVICAL SPINE 2 OR 3VW Routine 10/04/2022 9:40 AM CDT Cancer, metastatic to bone (HCC) CBC W AUTO DIFFERENTIAL STAT 10/04/2022 12:07 AM CDT Cancer, metastatic to bone (HCC) BASIC METABOLIC PANEL (CALCIUM TOTAL) STAT 10/04/2022 12:07 AM CDT Cancer, metastatic to bone (HCC) PHOSPHORUS BLOOD STAT 10/04/2022 12:0 7 AM CDT Cancer, metastatic to bone (HCC) MAGNESIUM BLOOD STAT 10/04/2022 12:07 AM CDT Cancer, metastatic to bone (HCC) CBC W AUTO DIFFERENTIAL STAT 10/02/2022 11:25 PM CDT Cancer, metastatic to bone (HCC) BASIC METABOLIC PANEL (CALCIUM TOTAL) STAT 10/02/2022 11:25 PM CDT Cancer, metastatic to bone (HCC) PHOSPHORUS BLOOD STAT 10/02/2022 11:2 5 PM CDT Cancer, metastatic to bone (HCC) MAGNESIUM BLOOD STAT 10/02/2022 11:25 PM CDT Cancer, metastatic to bone (HCC) BASIC METABOLIC PANEL (CALCIUM TOTAL) STAT 10/02/2022 2:30 PM CDT Cancer, metastatic to bone (HCC) PHOSPHORUS BLOOD STAT 10/02/2022 2:30 PM CDT Cancer, metastatic to bone (HCC) MAGNESIUM BLOOD STAT 10/02/2022 2:30 PM CDT Cancer, metastatic to bone (HCC) PT-INR SLH Routine 10/02/2022 12:59 PM CDT CBC W AUTO DIFFERENTIAL Routine 10/02/2022 12:59 PM CDT FL OARM SURGERY Routine 10/02/2022 11:17 AM CDT Cancer, metastatic to bone (HCC) FL RONNY SURGERY Routine 10/02/2022 11:17 AM CDT Cancer, metastatic to bone (HCC) PULSE OXIMETRY, CONTINUOUS Routine 10/02/2022 10:55 AM CDT PATHOLOGY TISSUE Routine 10/02/2022 9:59 AM CDT Cervical spine tumor FUSION POSTERIOR CERVICAL (PCF) 10/02/2022 8:22 AM CDT Cervical spine tumor Special Needs PRONE, C-ARM, O-ARM Kinevo scope NEUROMONITORING (SSEP,MEP,EMG), Medicina--Samir notified mk 09/28 TYPE + SCREEN PANEL MARAL 10/02/2022 6 :41 AM CDT Preop examination documented in this encounter Results * CARDIAC EKG ORDER (10/09/2022 12:58 PM CDT) Narrative 10/09/2022 12:58 PM CDT Ordered by an unspecified provider. Scanned Document CARDIAC SERVICES ORD ERABLES * (ABNORMAL) PHOSPHORUS BLOOD (10/07/2022 12:12 AM CDT) Pathologist [facility] Phosphorus 5.3(H) 2.9 - 5.1 mg/dL 10/07/2022 12:43 AM CDT [facility] Blood BLOOD SPECIMEN / Unknown Lab Venipuncture / Unknown 10/07/2022 12:12 AM CDT 10/07/2022 12:19 AM CDT Coy Gómez MD LAB - CHEMISTRY ASH WEAVER Performing Organization Address City/[facility] [address]/ZIP Co de Phone Number [address] [address], [facility] [phone] * MAGNESIUM BLOOD (10/07/2022 12:12 AM CDT) Pathologist [facility] Magnesium 1.7 1.6 - 2.6 mg/dL 10/07/2022 12:43 AM CDT [facility] Blood BLOOD SPECIMEN / Unknown Lab Venipuncture / Unknown 10/07/2022 12:12 AM CDT 10/07/2022 12:19 AM CDT Coy Gómez MD LAB - CHEMISTRY ASH WEAVER [address] [address], [facility] [phone] * (ABNORMAL) CBC W AUTO DIFFERENTIAL (10/07/2022 12:12 AM CDT) Pathologist [facility] WBC 8.1 3.5 - 10.5 10? 3 /uL 10/07/2022 1:08 AM CDT [facility] RBC 3.03(L) 3.80 - 5.20 10? 6 /uL 10/07/2022 1:08 AM CDT [facility] Hemoglobin 9.2(L) 12.0 - 15.6 g/dL 10/07/2022 1:08 AM [facility] Hematocrit 27.3(L) 35.0 - 45.0 % 10/07/2022 1:08 AM [facility] MCV 90.1 80.7 - 98.3 fL 10/07/2022 1:08 AM [facility] MCH 30.4 26.7 - 34.0 pg 10/07/2022 1:08 AM [facility] MCHC 33.7 30.8 - 35.9 g/dL 10/07/2022 1:08 AM [facility] RDW-SD 43.9 36.0 - 50.0 fL 10/07/2022 1:08 AM [facility] RDW-CV 13.4 11.2 - 14.8 % 10/07/2022 1:08 AM [facility] Platelet Count 263 150 - 400 10? 3 /uL 10/07/2022 1:08 AM [facility] MPV 10.3 9.4 - 12.9 fL 10/07/2022 1:08 AM [facility] nRBC Absolute 0.00 0 10? 3 /uL 10/07/2022 1:08 AM [facility] nRBC Auto 0.0 0 /100 WBC 10/07/2022 1:08 AM [facility] Neutrophils % 59.0 35.0 - 70.0 % 10/07/2022 1:08 AM [facility] Lymphocytes % 25.1 20.0 - 43.0 % 10/07/2022 1:08 AM [facility] Monocytes % 12.4 5.0 - 13.0 % 10/07/2022 1:08 AM [facility] Eosinophils % 2.4 0.0 - 6.0 % 10/07/2022 1:08 AM [facility] Basophil % 0.7 0.0 - 2.0 % 10/07/2022 1:08 AM [facility] Neutrophils Absolute 4.75 1.60 - 7.00 10? 3 /uL 10/07/2022 1:08 AM [facility] Lymphocyte Absolute 2.02 1.10 - 3.90 10? 3 /uL 10/07/2022 1:08 AM [facility] Monocytes Absolute 1.00 0.26 - 1.07 10? 3 /uL 10/07/2022 1:08 AM [facility] Eosinophils Absolute 0.19 0.00 - 0.47 10? 3 /uL 10/07/2022 1:08 AM [facility] Basophils Absolute 0.06 0.00 - 0.08 10? 3 /uL 10/07/2022 1:08 AM [facility] Immature Granulocytes % 0.4 0.0 - 1.0 % 10/07/2022 1:08 AM [facility] Immature Granulocytes Absolute 0.03 10/07/2022 1:08 AM [facility] Blood BLOOD SPECIMEN / Unknown Lab Venipuncture / Unknown 10/07/2022 12:12 AM CDT 10/07/2022 12:19 AM T Coy Gómez MD LAB - HEMATOLOGY ORD ERABLES [facility] [address] [place] [address], [facility] [phone] * (ABNORMAL) BASIC METABOLIC PANEL (CALCIUM TOTAL) (10/07/2022 12:12 AM CDT) BUN 15 7 - 26 mg/dL 10/07/2022 12:43 AM [facility] Creatinine 0.56 0.56 - 0.96 mg/dL 10/07/2022 12:43 AM [facility] Sodium 143 136 - 145 mmol/L 10/07/2022 12:43 AM [facility] Potassium 3.8 3.5 - 4.5 mmol/L 10/07/2022 12:43 AM [facility] Chloride 106 98 - 107 mmol/L 10/07/2022 12:43 AM [facility] CO2 25 22 - 29 mmol/L 10/07/2022 12:43 AM [facility] Glucose 92 70 - 115 mg/dL 10/07/2022 12:43 AM [facility] Calcium 9.0 8.4 - 10.2 mg/dL 10/07/2022 12:43 AM CDT [facility] Anion Gap 16 8 - 18 10/07/2022 12:43 AM CDT [facility] BUN/Creatinine Ratio 27(H) 7 - 23 10/07/2022 12:43 AM CDT [facility] Osmolality Calculated 296 270 - 300 mOsm/kg 10/07/2022 12:43 AM CDT [facility] eGFR by CKD-EPI >90 >=90 mL/min/1.7 3 m2 10/07/2022 12:43 AM CDT [facility] Blood BLOOD SPECIMEN / Unknown Lab Venipuncture / Unknown 10/07/2022 12:12 AM CDT 10/07/2022 12:19 AM CDT Coy Gómez MD LAB - CHEMISTRY ASH WE[employer]ER [facility] Organization Address City/State/ZIP Co de Phone Number [facility] [address] [place] [address], [facility] [phone] * PREPARE (CROSSMATCH) RBC UNIT(S), 2 Units (10/06/2022 1:17 AM CDT) Unit Description AS1 LR PRBC [facility] BLOOD [facility]ANK LAB Unit ABO B [facility] BLOOD [facility] LAB Unit Rh POS [facility] BLOOD [facility] LAB Product Number R02 [facility] B LOOD BANK LAB Unit Donor # [id number] [facility] BLOOD [facility] LAB Unit Status released [facility] BLOO D BANK LAB Product Code [id number] [facility] BLO OD BANK LAB Blood Type Barcode 7300 [facility] BLOOD [facility] LAB Expiration Date [id number] S BLOOD BANK LAB Unit Description -1 LR PRBC LV [facility] BLOOD BANK LAB Unit ABO B [facility] BLOOD [facility] LAB Unit Rh POS [facility] BLOOD BANK LAB Product Number R52 [facility] B LOOD BANK LAB Unit Donor # [id number] [facility] BLOOD BANK LAB Unit Status released [facility] BLOO D BANK LAB Product Code [id number] [facility] BLO OD BANK LAB Blood Type Barcode 7300 [facility] BLOOD [facility] LAB Expiration Date [id number] S BLOOD BANK LAB Blood Bank BLOOD SPECIMEN / Unknown 10/02/2022 6:49 AM CDT Coy Gómez MD LAB - BLOOD BANK SHANDRA BURDEN [facility] BLOOD BANK LAB [address] [place] [phone], [facility] [phone] * PHOSPHORUS BLOOD (10/05/2022 10:34 PM CDT) Phosphorus 4.6 2.9 - 5.1 mg/dL 10/05/2022 11:04 PM CDT [facility] Blood BLOOD SPECIMEN / Unknown Lab Venipuncture / Unknown 10/05/2022 10:34 PM CDT 10/05/2022 10:39 PM CDT Coy Gómez MD LAB - CHEMISTRY ASH WEAVER Performing Organization Address City/[facility] [address]/ZIP Co de Phone Number [address] [address], [facility] [phone] * MAGNESIUM BLOOD (10/05/2022 10:34 PM CDT) Magnesium 1.6 1.6 - 2.6 mg/dL 10/05/2022 11:04 PM CDT [facility] Blood BLOOD SPECIMEN / Unknown Lab Venipuncture / Unknown 10/05/2022 10:34 PM CDT 10/05/2022 10:39 PM CDT Coy Gómez MD LAB - CHEMISTRY ASH WEAVER [address] [address], [facility] [phone] * (ABNORMAL) CBC W AUTO DIFFERENTIAL (10/05/2022 10:34 PM CDT) WBC 8.9 3.5 - 10.5 10? 3 /uL 10/05/2022 11:09 PM CDT [facility] RBC 3.18(L) 3.80 - 5.20 10? 6 /uL 10/05/2022 11:09 PM [facility] Hemoglobin 9.7(L) 12.0 - 15.6 g/dL 10/05/2022 11:09 PM [facility] Hematocrit 29.2(L) 35.0 - 45.0 % 10/05/2022 11:09 PM [facility] MCV 91.8 80.7 - 98.3 fL 10/05/2022 11:09 PM [facility] MCH 30.5 26.7 - 34.0 pg 10/05/2022 11:09 PM [facility] MCHC 33.2 30.8 - 35.9 g/dL 10/05/2022 11:09 PM [facility] RDW-SD 45.3 36.0 - 50.0 fL 10/05/2022 11:09 [facility] RDW-CV 13.3 11.2 - 14.8 % 10/05/2022 11:09 [facility] Platelet Count 239 150 - 400 10? 3 /uL 10/05/2022 11:09 [facility] MPV 10.3 9.4 - 12.9 fL 10/05/2022 11:09 PM [facility] nRBC Absolute 0.00 0 10? 3 /uL 10/05/2022 11:09 PM [facility] nRBC Auto 0.0 0 /100 WBC 10/05/2022 11:09 [facility] Neutrophils % 67.4 35.0 - 70.0 % 10/05/2022 11:09 PM [facility] Lymphocytes % 18.0(L) 20.0 - 43.0 % 10/05/2022 11:09 PM [facility] Monocytes % 11.6 5.0 - 13.0 % 10/05/2022 11:09 PM [facility] Eosinophils % 1.8 0.0 - 6.0 % 10/05/2022 11:09 [facility] Basophil % 0.6 0.0 - 2.0 % 10/05/2022 11:09 PM [facility] Neutrophils Absolute 6.03 1.60 - 7.00 10? 3 /uL 10/05/2022 11:09 PM [facility] Lymphocyte Absolute 1.61 1.10 - 3.90 10? 3 /uL 10/05/2022 11:09 PM [facility] Monocytes Absolute 1.04 0.26 - 1.07 10? 3 /uL 10/05/2022 11:09 PM [facility] Eosinophils Absolute 0.16 0.00 - 0.47 10? 3 /uL 10/05/2022 11:09 PM [facility] Basophils Absolute 0.05 0.00 - 0.08 10? 3 /uL 10/05/2022 11:09 PM [facility] Immature Granulocytes % 0.6 0.0 - 1.0 % 10/05/2022 11:09 PM [facility] Immature Granulocytes Absolute 0.05 10/05/2022 11:09 PM [facility] Blood BLOOD SPECIMEN / Unknown Lab Venipuncture / Unknown 10/05/2022 10:34 PM CDT 10/05/2022 10:39 PM CDT Coy Gómez MD LAB - HEMATOLOGY ORD ERABLES [facility] [address] [place] [phone], [facility] [phone] * (ABNORMAL) BASIC METABOLIC PANEL (CALCIUM TOTAL) (10/05/2022 10:34 PM CDT) BUN 19 7 - 26 mg/dL 10/05/2022 11:04 PM [facility] Creatinine 0.53(L) 0.56 - 0.96 mg/dL 10/05/2022 11:04 PM [facility] Sodium 140 136 - 145 mmol/L 10/05/2022 11:04 PM [facility] Potassium 3.7 3.5 - 4.5 mmol/L 10/05/2022 11:04 PM [facility] Chloride 106 98 - 107 mmol/L 10/05/2022 11:04 PM [facility] CO2 25 22 - 29 mmol/L 10/05/2022 11:04 PM [facility] Glucose 118(H) 70 - 115 mg/dL 10/05/2022 11:04 PM CDT [facility] Calcium 8.6 8.4 - 10.2 mg/dL 10/05/2022 11:04 PM T [facility] Anion Gap 13 8 - 18 10/05/2022 11:04 PM T [facility] BUN/Creatinine Ratio 36(H) 7 - 23 10/05/2022 11:04 PM T [facility] Osmolality Calculated 293 270 - 300 mOsm/kg 10/05/2022 11:04 PM T [facility] eGFR by CKD-EPI >90 >=90 mL/min/1.7 3 m2 10/05/2022 11:04 PM T [facility] Blood BLOOD SPECIMEN / Unknown Lab Venipuncture / Unknown 10/05/2022 10:34 PM CDT 10/05/2022 10:39 PM CDT Coy Gómez MD LAB - CHEMISTRY ASH WEAVER [address] [address], [facility] [phone] * PHOSPHORUS BLOOD (10/05/2022 4:36 AM CDT) Phosphorus 3.6 2.9 - 5.1 mg/dL 10/05/2022 7:15 AM CDT [facility] Blood BLOOD SPECIMEN / Unknown Lab Venipuncture / Unknown 10/05/2022 4:36 AM CDT 10/05/2022 6:45 AM CDT Coy Gómez MD LAB - CHEMISTRY ASH WEAVER [address] [address], [facility] [phone] * MAGNESIUM BLOOD (10/05/2022 4:36 AM CDT) Magnesium 1.7 1.6 - 2.6 mg/dL 10/05/2022 7:15 AM CDT [facility] Blood BLOOD SPECIMEN / Unknown Lab Venipuncture / Unknown 10/05/2022 4:36 AM CDT 10/05/2022 6:45 AM CDT Coy Gómez MD LAB - CHEMISTRY ASH [facility] Organization Address City/State/ZIP Co de Phone Number [facility] [address] [place] [address], [facility] [phone] * (ABNORMAL) CBC W AUTO DIFFERENTIAL (10/05/2022 4:36 AM CDT) WBC 9.3 3.5 - 10.5 10? 3 /uL 10/05/2022 6:55 AM CDT [facility] RBC 3.32(L) 3.80 - 5.20 10? 6 /uL 10/05/2022 6:55 AM [facility] Hemoglobin 10.2(L) 12.0 - 15.6 g/dL 10/05/2022 6:55 AM [facility] Hematocrit 30.5(L) 35.0 - 45.0 % 10/05/2022 6:55 AM [facility] MCV 91.9 80.7 - 98.3 fL 10/05/2022 6:55 AM [facility] MCH 30.7 26.7 - 34.0 pg 10/05/2022 6:55 AM T [facility] MCHC 33.4 30.8 - 35.9 g/dL 10/05/2022 6:55 AM [facility] RDW-SD 45.2 36.0 - 50.0 fL 10/05/2022 6:55 AM T [facility] RDW-CV 13.5 11.2 - 14.8 % 10/05/2022 6:55 AM [facility] Platelet Count 239 150 - 400 10? 3 /uL 10/05/2022 6:55 AM [facility] MPV 10.9 9.4 - 12.9 fL 10/05/2022 6:55 AM [facility] nRBC Absolute 0.00 0 10? 3 /uL 10/05/2022 6:55 AM [facility] nRBC Auto 0.0 0 /100 WBC 10/05/2022 6:55 AM [facility] Neutrophils % 68.2 35.0 - 70.0 % 10/05/2022 6:55 AM [facility] Lymphocytes % 19.3(L) 20.0 - 43.0 % 10/05/2022 6:55 AM [facility] Monocytes % 10.3 5.0 - 13.0 % 10/05/2022 6:55 AM [facility] Eosinophils % 1.4 0.0 - 6.0 % 10/05/2022 6:55 AM [facility] Basophil % 0.5 0.0 - 2.0 % 10/05/2022 6:55 AM [facility] Neutrophils Absolute 6.32 1.60 - 7.00 10? 3 /uL 10/05/2022 6:55 AM [facility] Lymphocyte Absolute 1.79 1.10 - 3.90 10? 3 /uL 10/05/2022 6:55 AM [facility] Monocytes Absolute 0.96 0.26 - 1.07 10? 3 /uL 10/05/2022 6:55 AM [facility] Eosinophils Absolute 0.13 0.00 - 0.47 10? 3 /uL 10/05/2022 6:55 AM [facility] Basophils Absolute 0.05 0.00 - 0.08 10? 3 /uL 10/05/2022 6:55 AM [facility] Immature Granulocytes % 0.3 0.0 - 1.0 % 10/05/2022 6:55 AM [facility] Immature Granulocytes Absolute 0.03 10/05/2022 6:55 AM [facility] Blood BLOOD SPECIMEN / Unknown Lab Venipuncture / Unknown 10/05/2022 4:36 AM CDT 10/05/2022 6:47 AM CDT Coy Gómez MD LAB - HEMATOLOGY ORD ERABLES [facility] [address] [place] [address], [facility] [phone] * (ABNORMAL) BASIC METABOLIC PANEL (CALCIUM TOTAL) (10/05/2022 4:36 AM CDT) BUN 10 7 - 26 mg/dL 10/05/2022 7:15 AM [facility] Creatinine 0.59 0.56 - 0.96 mg/dL 10/05/2022 7:15 AM [facility] Sodium 143 136 - 145 mmol/L 10/05/2022 7:15 AM [facility] Potassium 3.7 3.5 - 4.5 mmol/L 10/05/2022 7:15 AM [facility] Chloride 103 98 - 107 mmol/L 10/05/2022 7:15 AM [facility] CO2 25 22 - 29 mmol/L 10/05/2022 7:15 AM [facility] Glucose 90 70 - 115 mg/dL 10/05/2022 7:15 AM [facility] Calcium 8.3(L) 8.4 - 10.2 mg/dL 10/05/2022 7:15 AM [facility] Anion Gap 19(H) 8 - 18 10/05/2022 7:15 AM [facility] BUN/Creatinine Ratio 17 7 - 23 10/05/2022 7:15 AM [facility] Osmolality Calculated 295 270 - 300 mOsm/kg 10/05/2022 7:15 AM [facility] eGFR by CKD-EPI >90 >=90 mL/min/1.7 3 m2 10/05/2022 7:15 AM [facility] Blood BLOOD SPECIMEN / Unknown Lab Venipuncture / Unknown 10/05/2022 4:36 AM CDT 10/05/2022 6:45 AM CDT Coy Gómez MD LAB - CHEMISTRY ASH WE[employer]ER [facility] Organization Address City/State/ZIP Co de Phone Number [address] [address], [facility] [phone] * XR CERVICAL SPINE 2 OR 3VW (10/04/2022 9:40 AM CDT) Anatomical Region Laterality Modality Spine Radiographic Ewa ging 10/04/2022 9:44 AM CDT Impressions 10/04/2022 12:48 PM CDT IMPRESSION: 1.Postsurgical changes from posterior C2-T2 fusion and C3-C7 decompression are present with paired rods and interpedicular screws. The surgical hardware appears intact. 2.No evidence of cervical spine fracture or malalignment. Report dictated by Kalin Kumar M.D. (limited radiology technician) Joshua Mckeon DO have personally reviewed and interpreted this examination/study. > Interpreting Provider: Joshua Gaytan DO on 10/04/2022 12:48 PM Narrative 10/04/2022 12:48 PM CDT PROCEDURE: ??XR CERVICAL SPINE 2 OR 3VW, XR THORACIC SPINE 3VW, DATE/TIME OF EXAM: ??10/04/2022 9:41 AM, LOCATION ??[facility] INDICATION: C79.51: Cancer, metastatic to bone (CMS/HCC) ADDITIONAL CLINICAL INFORMATION: Ordering Provider Reason For Exam: ??post op (accession [id number]), s/p PSIF (accession [id number]) COMPARISON: None. TECHNIQUE: AP and lateral views [...] The visualized heart is normal. Procedure Note Johsua Gaytan DO - 10/04/2022 PROCEDURE: XR CERVICAL SPINE 2 OR 3VW, XR THORACIC SPINE 3VW, DATE/TIMEOF EXAM: 10/04/2022 9:41 AM, LOCATION [facility] INDICATION: C79.51: Cancer, metastatic to bone (CMS/HCC) ADDITIONAL CLINICAL INFORMATION: Ordering Provider Reason For Exam: post op (accession [id number]), s/pPSIF (accession [id number]) COMPARISON: None. TECHNIQUE: AP and lateral views [...] 1.Postsurgical changes from posterior C2-T2 fusion and C3-O1gewoddzmbavry are present with paired rods and interpedicular screws. The surgical hardware appears intact. 2.No evidence of cervical spine fracture or malalignment. Report dictated by Kalin Kumar M.D. (limited radiology technician) Joshua Mckeon DO have personally reviewed and interpreted this examination/study. > Interpreting Provider: Joshua Gaytan DO on 10/04/2022 12:48 PM Coy Gómez MD DIAGNOSTIC IMAGING O RDERABLES * XR THORACIC SPINE 3VW (10/04/2022 9:40 AM CDT) Anatomical Region Laterality Modality Spine Radiographic Ewa ging 10/04/2022 9:44 AM CDT Impressions 10/04/2022 12:48 PM CDT IMPRESSION: 1.Postsurgical changes from posterior C2-T2 fusion and C3-C7 decompression are present with paired rods and interpedicular screws. The surgical hardware appears intact. 2.No evidence of cervical spine fracture or malalignment. Report dictated by Kalin Kumar M.D. (limited radiology technician) Joshua Mckeon DO have personally reviewed and interpreted this examination/study. > Interpreting Provider: Joshua Gaytan DO on 10/04/2022 12:48 PM Narrative 10/04/2022 12:48 PM CDT PROCEDURE: ??XR CERVICAL SPINE 2 OR 3VW, XR THORACIC SPINE 3VW, DATE/TIME OF EXAM: ??10/04/2022 9:41 AM, LOCATION ??[facility] INDICATION: C79.51: Cancer, metastatic to bone (CMS/HCC) ADDITIONAL CLINICAL INFORMATION: Ordering Provider Reason For Exam: ??post op (accession [id number]), s/p PSIF (accession [id number]) COMPARISON: None. TECHNIQUE: AP and lateral views [...] The visualized heart is normal. Procedure Note Joshua Gaytan DO - 10/04/2022 PROCEDURE: XR CERVICAL SPINE 2 OR 3VW, XR THORACIC SPINE 3VW, DATE/TIMEOF EXAM: 10/04/2022 9:41 AM, LOCATION [facility] INDICATION: C79.51: Cancer, metastatic to bone (CMS/HCC) ADDITIONAL CLINICAL INFORMATION: Ordering Provider Reason For Exam: post op (accession [id number]), s/pPSIF (accession [id number]) COMPARISON: None. TECHNIQUE: AP and lateral views [...] 1.Postsurgical changes from posterior C2-T2 fusion and C3-V9kcponjesvthac are present with paired rods and interpedicular screws. The surgical hardware appears intact. 2.No evidence of cervical spine fracture or malalignment. Report dictated by Kalin Kumar M.D. (limited radiology technician) I, Joshua Gaytan DO have personally reviewed and interpreted this examination/study. > Interpreting Provider: Joshua Gaytan DO on 10/04/2022 12:48 PM Coy Gómez MD DIAGNOSTIC IMAGING O RDERABLES * PHOSPHORUS BLOOD (10/04/2022 12:07 AM CDT) Phosphorus 3.1 2.9 - 5.1 mg/dL 10/04/2022 1:00 AM CDT THE [facility] Blood BLOOD SPECIMEN / Unknown Venipuncture / Unknown 10/04/2022 12:07 AM CDT 10/04/2022 12:35 AM CDT Coy Gómez MD LAB - CHEMISTRY ASH WEAVER [facility] Organization Address City/State/ZIP Co de Phone Number [address] [address], [facility] [phone] * MAGNESIUM BLOOD (10/04/2022 12:07 AM CDT) Magnesium 1.8 1.6 - 2.6 mg/dL 10/04/2022 1:00 AM CDT [facility] Blood BLOOD SPECIMEN / Unknown Venipuncture / Unknown 10/04/2022 12:07 AM CDT 10/04/2022 12:35 AM CDT Coy Gómez MD LAB - CHEMISTRY ASH [place] Organization Address City/State/ZIP Co de Phone Number [facility] LABORATORY [facility] [address] [place] [address], [facility] [phone] * (ABNORMAL) CBC W AUTO DIFFERENTIAL (10/04/2022 12:07 AM CDT) WBC 9.2 3.5 - 10.5 10? 3 /uL 10/04/2022 12:45 AM [facility] RBC 3.10(L) 3.80 - 5.20 10? 6 /uL 10/04/2022 12:45 AM [facility] Hemoglobin 9.4(L) 12.0 - 15.6 g/dL 10/04/2022 12:45 AM [facility] Hematocrit 28.7(L) 35.0 - 45.0 % 10/04/2022 12:45 AM [facility] MCV 92.6 80.7 - 98.3 fL 10/04/2022 12:45 AM [facility] MCH 30.3 26.7 - 34.0 pg 10/04/2022 12:45 AM [facility] MCHC 32.8 30.8 - 35.9 g/dL 10/04/2022 12:45 AM [facility] RDW-SD 47.0 36.0 - 50.0 fL 10/04/2022 12:45 AM [facility] RDW-CV 13.9 11.2 - 14.8 % 10/04/2022 12:45 AM [facility] Platelet Count 212 150 - 400 10? 3 /uL 10/04/2022 12:45 AM [facility] MPV 10.1 9.4 - 12.9 fL 10/04/2022 12:45 AM [facility] nRBC Absolute 0.00 0 10? 3 /uL 10/04/2022 12:45 AM [facility] nRBC Auto 0.0 0 /100 WBC 10/04/2022 12:45 AM [facility] Neutrophils % 68.3 35.0 - 70.0 % 10/04/2022 12:45 AM [facility] Lymphocytes % 17.4(L) 20.0 - 43.0 % 10/04/2022 12:45 AM [facility] Monocytes % 13.4(H) 5.0 - 13.0 % 10/04/2022 12:45 AM [facility] Eosinophils % 0.4 0.0 - 6.0 % 10/04/2022 12:45 AM [facility] Basophil % 0.2 0.0 - 2.0 % 10/04/2022 12:45 AM [facility] Neutrophils Absolute 6.25 1.60 - 7.00 10? 3 /uL 10/04/2022 12:45 AM [facility] Lymphocyte Absolute 1.60 1.10 - 3.90 10? 3 /uL 10/04/2022 12:45 AM [facility] Monocytes Absolute 1.23(H) 0.26 - 1.07 10? 3 /uL 10/04/2022 12:45 AM [facility] Eosinophils Absolute 0.04 0.00 - 0.47 10? 3 /uL 10/04/2022 12:45 AM [facility] Basophils Absolute 0.02 0.00 - 0.08 10? 3 /uL 10/04/2022 12:45 AM [facility] Immature Granulocytes % 0.3 0.0 - 1.0 % 10/04/2022 12:45 AM [facility] Immature Granulocytes Absolute 0.03 10/04/2022 12:45 AM [facility] Blood BLOOD SPECIMEN / Unknown Venipuncture / Unknown 10/04/2022 12:07 AM CDT 10/04/2022 12:35 AM T Coy Gómez MD LAB - HEMATOLOGY ORD ERABLES [facility] [address] [place] [address], [facility] [phone] * (ABNORMAL) BASIC METABOLIC PANEL (CALCIUM TOTAL) (10/04/2022 12:07 AM CDT) BUN 17 7 - 26 mg/dL 10/04/2022 1:00 AM [facility] Creatinine 0.59 0.56 - 0.96 mg/dL 10/04/2022 1:00 AM [facility] Sodium 141 136 - 145 mmol/L 10/04/2022 1:00 AM [facility] Potassium 3.9 3.5 - 4.5 mmol/L 10/04/2022 1:00 AM [facility] Chloride 104 98 - 107 mmol/L 10/04/2022 1:00 AM [facility] CO2 26 22 - 29 mmol/L 10/04/2022 1:00 AM [facility] Glucose 117(H) 70 - 115 mg/dL 10/04/2022 1:00 AM [facility] Calcium 7.6(L) 8.4 - 10.2 mg/dL 10/04/2022 1:00 AM [facility] Anion Gap 15 8 - 18 10/04/2022 1:00 AM [facility] BUN/Creatinine Ratio 29(H) 7 - 23 10/04/2022 1:00 AM [facility] Osmolality Calculated 295 270 - 300 mOsm/kg 10/04/2022 1:00 AM [facility] eGFR by CKD-EPI >90 >=90 mL/min/1.7 3 m2 10/04/2022 1:00 AM [facility] Blood BLOOD SPECIMEN / Unknown Venipuncture / Unknown 10/04/2022 12:07 AM CDT 10/04/2022 12:35 AM CDT Coy Gómez MD LAB - CHEMISTRY ASH WEAVER [facility] Organization Address City/State/ZIP Co de Phone Number [facility] [address] [place] [address], [facility] [phone] * PHOSPHORUS BLOOD (10/02/2022 11:25 PM CDT) Pathologist [facility] Phosphorus 4.8 2.9 - 5.1 mg/dL 10/03/2022 12:09 AM CDT [facility] Blood BLOOD SPECIMEN / Unknown Venipuncture / Unknown 10/02/2022 11:25 PM CDT 10/02/2022 11:30 PM CDT Coy Gómez MD LAB - CHEMISTRY ASH WEAVER [address] [address], [facility] [phone] * MAGNESIUM BLOOD (10/02/2022 11:25 PM CDT) Magnesium 1.8 1.6 - 2.6 mg/dL 10/03/2022 12:09 AM CDT [facility] Blood BLOOD SPECIMEN / Unknown Venipuncture / Unknown 10/02/2022 11:25 PM CDT 10/02/2022 11:30 PM CDT Coy Gómez MD LAB - CHEMISTRY ASH WEAVER [address] [address], [facility] [phone] * (ABNORMAL) CBC W AUTO DIFFERENTIAL (10/02/2022 11:25 PM CDT) WBC 11.9(H) 3.5 - 10.5 10? 3 /uL 10/03/2022 12:07 AM T [facility] RBC 3.96 3.80 - 5.20 10? 6 /uL 10/03/2022 12:07 AM [facility] Hemoglobin 12.0 12.0 - 15.6 g/dL 10/03/2022 12:07 AM [facility] Hematocrit 35.1 35.0 - 45.0 % 10/03/2022 12:07 AM [facility] MCV 88.6 80.7 - 98.3 fL 10/03/2022 12:07 AM [facility] MCH 30.3 26.7 - 34.0 pg 10/03/2022 12:07 AM [facility] MCHC 34.2 30.8 - 35.9 g/dL 10/03/2022 12:07 AM [facility] RDW-SD 42.8 36.0 - 50.0 fL 10/03/2022 12:07 AM [facility] RDW-CV 13.2 11.2 - 14.8 % 10/03/2022 12:07 AM [facility] Platelet Count 297 150 - 400 10? 3 /uL 10/03/2022 12:07 AM [facility] MPV 10.2 9.4 - 12.9 fL 10/03/2022 12:07 AM [facility] nRBC Absolute 0.00 0 10? 3 /uL 10/03/2022 12:07 AM [facility] nRBC Auto 0.0 0 /100 WBC 10/03/2022 12:07 AM [facility] Neutrophils % 84.5(H) 35.0 - 70.0 % 10/03/2022 12:07 AM [facility] Lymphocytes % 8.4(L) 20.0 - 43.0 % 10/03/2022 12:07 AM [facility] Monocytes % 6.5 5.0 - 13.0 % 10/03/2022 12:07 AM [facility] Eosinophils % 0.0 0.0 - 6.0 % 10/03/2022 12:07 AM [facility] Basophil % 0.2 0.0 - 2.0 % 10/03/2022 12:07 AM [facility] Neutrophils Absolute 10.06(H) 1.60 - 7.00 10? 3 /uL 10/03/2022 12:07 AM [facility] Lymphocyte Absolute 1.00(L) 1.10 - 3.90 10? 3 /uL 10/03/2022 12:07 AM [facility] Monocytes Absolute 0.77 0.26 - 1.07 10? 3 /uL 10/03/2022 12:07 AM [facility] Eosinophils Absolute 0.00 0.00 - 0.47 10? 3 /uL 10/03/2022 12:07 AM CDT [facility] Basophils Absolute 0.02 0.00 - 0.08 10? 3 /uL 10/03/2022 12:07 AM [facility] Immature Granulocytes % 0.4 0.0 - 1.0 % 10/03/2022 12:07 AM [facility] Immature Granulocytes Absolute 0.05 10/03/2022 12:07 AM [facility] Blood BLOOD SPECIMEN / Unknown Venipuncture / Unknown 10/02/2022 11:25 PM CDT 10/02/2022 11:30 PM CDT Coy Gómez MD LAB - HEMATOLOGY ORD ERABLES [facility] [address] [place] [address], [facility] [phone] * (ABNORMAL) BASIC METABOLIC PANEL (CALCIUM TOTAL) (10/02/2022 11:25 PM CDT) BUN 16 7 - 26 mg/dL 10/03/2022 12:09 AM [facility] Creatinine 0.61 0.56 - 0.96 mg/dL 10/03/2022 12:09 AM [facility] Sodium 139 136 - 145 mmol/L 10/03/2022 12:09 AM [facility] Potassium 4.5 3.5 - 4.5 mmol/L 10/03/2022 12:09 AM [facility] Chloride 105 98 - 107 mmol/L 10/03/2022 12:09 AM [facility] CO2 21(L) 22 - 29 mmol/L 10/03/2022 12:09 AM [facility] Glucose 129(H) 70 - 115 mg/dL 10/03/2022 12:09 AM [facility] Calcium 7.9(L) 8.4 - 10.2 mg/dL 10/03/2022 12:09 AM [facility] Anion Gap 18 8 - 18 10/03/2022 12:09 AM [facility] BUN/Creatinine Ratio 26(H) 7 - 23 10/03/2022 12:09 AM [facility] Osmolality Calculated 291 270 - 300 mOsm/kg 10/03/2022 12:09 AM CDT [facility] eGFR by CKD-EPI >90 >=90 mL/min/1.7 3 m2 10/03/2022 12:09 AM CDT [facility] Blood BLOOD SPECIMEN / Unknown Venipuncture / Unknown 10/02/2022 11:25 PM CDT 10/02/2022 11:30 PM CDT Coy Gómez MD LAB - CHEMISTRY ASH WEAVER [address] [address], [place] [phone] * (ABNORMAL) PHOSPHORUS BLOOD (10/02/2022 2:30 PM CDT) Phosphorus 5.3(H) 2.9 - 5.1 mg/dL 10/02/2022 3:06 PM CDT [facility] Blood BLOOD SPECIMEN / Unknown Venipuncture / Unknown 10/02/2022 2:30 PM CDT 10/02/2022 2:41 PM CDT Coy Gómez MD LAB - CHEMISTRY ASH WEAVER Performing Organization Address [facility] [address]/ZIP Co de Phone Number [address] [address], [place] [phone] * MAGNESIUM BLOOD (10/02/2022 2:30 PM CDT) Magnesium 1.9 1.6 - 2.6 mg/dL 10/02/2022 3:06 PM CDT [facility] Blood BLOOD SPECIMEN / Unknown Venipuncture / Unknown 10/02/2022 2:30 PM CDT 10/02/2022 2:41 PM CDT Coy Gómez MD LAB - CHEMISTRY ASH WEAVER Performing Organization Address City/[facility] [address]/ZIP Co de Phone Number [address] [address], [place] [phone] * (ABNORMAL) BASIC METABOLIC PANEL (CALCIUM TOTAL) (10/02/2022 2:30 PM CDT) BUN 16 7 - 26 mg/dL 10/02/2022 3:06 PM [facility] Creatinine 0.75 0.56 - 0.96 mg/dL 10/02/2022 3:06 PM [facility] Sodium 141 136 - 145 mmol/L 10/02/2022 3:06 PM [facility] Potassium 4.1 3.5 - 4.5 mmol/L 10/02/2022 3:06 PM [facility] Chloride 106 98 - 107 mmol/L 10/02/2022 3:06 PM [facility] CO2 23 22 - 29 mmol/L 10/02/2022 3:06 PM [facility] Glucose 143(H) 70 - 115 mg/dL 10/02/2022 3:06 PM [facility] Calcium 7.8(L) 8.4 - 10.2 mg/dL 10/02/2022 3:06 PM [facility] Anion Gap 16 8 - 18 10/02/2022 3:06 PM [facility] BUN/Creatinine Ratio 21 7 - 23 10/02/2022 3:06 PM [facility] Osmolality Calculated 296 270 - 300 mOsm/kg 10/02/2022 3:06 PM [facility] eGFR by CKD-EPI 89(L) >=90 mL/min/1.7 3 m2 10/02/2022 3:06 PM [facility] Blood BLOOD SPECIMEN / Unknown Venipuncture / Unknown 10/02/2022 2:30 PM CDT 10/02/2022 2:41 PM CDT Coy Gómez MD LAB - CHEMISTRY ASH WEAVER [facility] Organization Address City/State/ZIP Co de Phone Number [facility] [address] [place] [address], [facility] [phone] * (ABNORMAL) CBC W AUTO DIFFERENTIAL (10/02/2022 12:59 PM CDT) Pathologist [facility] WBC 9.9 3.5 - 10.5 10? 3 /uL 10/02/2022 1:37 PM [facility] RBC 4.06 3.80 - 5.20 10? 6 /uL 10/02/2022 1:37 PM [facility] Hemoglobin 12.3 12.0 - 15.6 g/dL 10/02/2022 1:37 PM [facility] Hematocrit 37.7 35.0 - 45.0 % 10/02/2022 1:37 PM [facility] MCV 92.9 80.7 - 98.3 fL 10/02/2022 1:37 PM [facility] MCH 30.3 26.7 - 34.0 pg 10/02/2022 1:37 PM [facility] MCHC 32.6 30.8 - 35.9 g/dL 10/02/2022 1:37 PM [facility] RDW-SD 45.9 36.0 - 50.0 fL 10/02/2022 1:37 PM [facility] RDW-CV 13.6 11.2 - 14.8 % 10/02/2022 1:37 PM [facility] Platelet Count 236 150 - 400 10? 3 /uL 10/02/2022 1:37 PM [facility] MPV 10.3 9.4 - 12.9 fL 10/02/2022 1:37 PM [facility] Immature Platelet Fraction 2.3 1.1 - 6.2 % 10/02/2022 1:37 PM [facility] nRBC Absolute 0.00 0 10? 3 /uL 10/02/2022 1:37 PM [facility] nRBC Auto 0.0 0 /100 WBC 10/02/2022 1:37 PM [facility] Neutrophils % 87.3(H) 35.0 - 70.0 % 10/02/2022 1:37 PM [facility] Lymphocytes % 10.0(L) 20.0 - 43.0 % 10/02/2022 1:37 PM [facility] Monocytes % 1.8(L) 5.0 - 13.0 % 10/02/2022 1:37 PM CDT [facility] Eosinophils % 0.2 0.0 - 6.0 % 10/02/2022 1:37 PM CDT [facility] Basophil % 0.4 0.0 - 2.0 % 10/02/2022 1:37 PM CDT [facility] Neutrophils Absolute 8.64(H) 1.60 - 7.00 10? 3 /uL 10/02/2022 1:37 PM T [facility] Lymphocyte Absolute 0.99(L) 1.10 - 3.90 10? 3 /uL 10/02/2022 1:37 PM CDT [facility] Monocytes Absolute 0.18(L) 0.26 - 1.07 10? 3 /uL 10/02/2022 1:37 PM T [facility] Eosinophils Absolute 0.02 0.00 - 0.47 10? 3 /uL 10/02/2022 1:37 PM CDT [facility] Basophils Absolute 0.04 0.00 - 0.08 10? 3 /uL 10/02/2022 1:37 PM T [facility] Immature Granulocytes % 0.3 0.0 - 1.0 % 10/02/2022 1:37 PM T [facility] Immature Granulocytes Absolute 0.03 10/02/2022 1:37 PM [facility] Blood BLOOD SPECIMEN / Unknown Venipuncture / Unknown 10/02/2022 12:59 PM CDT 10/02/2022 1:27 PM CDT Coy Gómez MD LAB - HEMATOLOGY ORD ERABLES Performing Organization Address [facility]/State/[facility] Co de Phone Number [facility] [address] [place] [address] [phone] * PT-INR [facility] (10/02/2022 12:59 PM CDT) PT 12.9 12.1 - 14.8 Seconds 10/02/2022 1:54 PM CDT [facility] INR 1.0 See Comment 10/02/2022 1:54 PM T [facility] Comment:The suggested therap eutic range for standard coumadin (warfarin) therapy is an INR of 2.0-3.0. For high-risk patients (Mechanical Mitral Valve Prosthesis, etc.), the suggested prophylactic therapeutic range is an INR of 2.5-3.5. Blood BLOOD SPECIMEN / Unknown Venipuncture / Unknown 10/02/2022 12:59 PM CDT 10/02/2022 1:27 PM CDT Coy Gómez MD LAB - COAGULATION OR DERABLES Performing Organization Address [facility] [address]/[facility] de Phone Number [facility] [place] [address] [place] [address], [facility] [phone] * [place] RONNY SURGERY (10/02/2022 11:17 AM CDT) Narrative [facility] RADIOLOGY - 10/02/2022 11:18 AM CDT Fluoroscopy was used for this exam in the OR. Please see the Operative report. Coy Gómez MD FLUOROSCOPY ORDERABL ES Performing Organization Address [facility] de Phone Number [facility] RAD[facility] * [place] OARM SURGERY (10/02/2022 11:17 AM CDT) Narrative [facility] RADIOLOGY - 10/02/2022 11:48 AM CDT Fluoroscopy was used for this exam in the OR. Please see the Operative report. Coy Gómez MD FLUOROSCOPY ORDERABL ES Performing Organization Address [facility] de Phone Number [facility] RADIOLOG[facility] * PATHOLOGY TISSUE (10/02/2022 9:59 AM CDT) Case Report Surgical Pathology Report ? Case: [id number] ? Authorizing Provider: ??Coy Gómez MD ?Collected: ? 10/02/2022 09:59 AM ? Ordering Location: ? [facility] ?Received: ?10/02/2022 11:08 AM ? Pathologist: ? Edin Scales MD ? Specimens: ?? A) - Spinal Cord, extradural tumor ? B) - Spinal Cord, extradural tumor ? 10/06/2022 1:[address] [facility] PATH[facility]Y [facility] Final Diagnosis Spinal cord, extradural tumor, resection (A): - Metastatic carcinoma. - See comment. Spinal cord, extradural tumor, resection (B): - Metastatic carcinoma. - See comment. Comment: The histopathological and immunohistochemical features of this tumor, along with the patient's history, are compatible with a metastatic thyroid carcinoma. 10/06/2022 1:[address] [facility] PATH[facility] Microscopic Description and Comment [...] negative for CK20 immunostaining. 10/06/2022 1:[address] [facility] PATH[facility] Clinical History 10/06/2022 1:[address] [facility] PATH[facility] Gross Description The requisition and specimen(s) are identified with the patient's Elizabethsarina Caicedo. Received fresh, specimen A, are 2 pink 0.5 x 0.3 x 0.1 cm rubbery tissues which are submitted for touch prep and frozen section. The frozen section residue is entirely submitted in 1 cassette labeled A1. /ML The requisition and specimen(s) are identified with the patient's Elizabethsarina Caicedo. Received in formalin, specimen B, is an irregular 1.2 x 0.5 x 0.2 cm pink-yellow rubbery tissue which is submitted in toto in 1 cassette labeled B1. /ML 10/06/2022 1:13 PM CDT [facility] Disclaimer The performance characteristics of all immunohistochemical and indirect immunofluorescence stains (if any) cited in this report were determined by the Histopathology Laboratory of [facility]. Some of these tests were developed [...] the attending (teaching) pathologist. 10/06/2022 1:13 PM CDT [facility] Embedded Images 10/06/2022 1:13 PM CDT [facility] Biopsy, Excision ENTIRE SPINAL CORD / Unknown 10/02/2022 9:59 AM CDT 10/02/2022 11:08 AM CDT Comment:Pre-op diagnosis: spine tumor Biopsy, Excision ENTIRE SPINAL CORD / Unknown 10/02/2022 10:42 AM CDT 10/02/2022 2:56 PM CDT Comment:Pre-op diagnosis: spine tumor Coy Gómez MD LAB - PATHOLOGY/CYTO LOGY ORDERABLES [facility] [address] [place] [address], [facility] [phone] * TYPE + SCREEN PANEL (10/02/2022 6:41 AM CDT) Antibody Screen NEG 7:31 AM CDT [facility] BLOOD BANK LAB ABO Rh B POS 10/02/2022 7:31 AM CDT [facility] Blood Bank BLOOD SPECIMEN / Unknown Venipuncture / Unknown 10/02/2022 6:41 AM CDT 10/02/2022 6:49 AM CDT Coy Gómez MD LAB - BLOOD BANK ORD ERABLES Performing Organization Address City/State/[facility] Co de Phone Number [facility] BLOOD [facility] LAB [address] [place] [address], [facility] [phone] documented in this encounter Visit Diagnoses Diagnosis Cancer, metastatic to bone (HCC)- Primary Secondary malignant neoplasm of bone and bone marrow Thyroid cancer (HCC) Malignant neoplasm of thyroid gland Preop examination Preoperative examination, unspecified Cancer, metastatic to bone (HCC) 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 Neoplasm of unspecified nature of bone, soft tissue, and skin Primary osteoarthritis of left hip Primary localized osteoarthrosis, pelvic region and thigh Cellulitis Cellulitis and abscess of unspecified site Chronic fatigue Other malaise and fatigue Complete paralysis of right vocal cord Chronic pain after cancer treatment Depression, unspecified Headache High cholesterol Pure hypercholesterolemia Hoarseness Dysphonia Left shoulder pain Pain in joint, shoulder region Neoplasm of uncertain behavior of skin Nicotine dependence Tobacco use disorder Obsessive-compulsive disorder Obsessive-compulsive disorders Other psoriasis Other seborrheic keratosis Other hypoparathyroidism (CMS/HCC) Urinary incontinence Tracheal mass Swelling, mass, 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 Thyroid cancer (CMS/HCC) Malignant neoplasm of thyroid gland Snoring Other dyspnea and respiratory abnormality Psychophysiologic insomnia Persistent disorder of initiating or maintaining sleep Primary osteoarthritis of left hip Primary localized osteoarthrosis, pelvic region and thigh Postoperative hypothyroidism Postsurgical hypothyroidism Lymphadenopathy of head and neck region Cervical spine tumor Neoplasm of unspecified nature of bone, soft tissue, and skin documented in this encounter Admitting Diagnoses Diagnosis Cervical spine tumor Neoplasm of unspecified nature of bone, soft tissue, and skin documented in this encounter Administered Medications Inactive Administered Medications - up to 3 most recent administrations Medication Order MAR Action Action Date Dose Rate Site 0.9% NaCl infusion at 75 mL/hr, Intravenous, CONTINUOUS, Starting on Wed10/02/22 at 1130, Until Wed10/07/22 at 0959 $ New Bag/Syringe 10/07/2022 12:11 AM CDT 75 mL/hr $ New Bag/Syringe 10/06/2022 10:34 AM CDT 75 mL /hr $ New Bag/Syringe 10/05/2022 8:59 PM CDT 75 mL/ hr 0.9% NaCl injection 1-10 mL 1-10 mL, Intracatheter, PRN, Other, peripheral line flush, Starting on Wed10/01/22 at 2028, Until Wed10/07/22 at 1312, Flush peripheral IV catheter with 1-10 mL of normal saline before and after medications and prn to clear blood from the line or to verify patency. 0.9% NaCl injection 3 mL 3 mL, Intracatheter, EVERY 8 HOURS, First dose on Wed10/01/22 at 2200, Until Discontinued, Flush peripheral IV catheter with 3 mL of normal saline every 8 hours. $ Given 10/05/2022 3:08 PM CDT 3 mL $ Given 10/04/2022 2:27 PM CDT 3 mL $ Given 10/04/2022 6:08 AM CDT 3 mL acetaminophen (Tylenol) tablet 650 mg 650 mg, Oral, EVERY 6 HOURS, 20 doses, First dose on Wed10/02/22 at 1200, Last dose on Wed10/07/22 at 0600, Patient preference for lesser PRN pain meds may be honored when the patient requests a less strong medication, a lower dose, or a less intrusive route of administration when the lesser drug, dose and route have been ordered for the patient. This patient request must be documented in the MAR. $ Given 10/07/2022 12:10 AM CDT 650 mg $ Given 10/06/2022 5:44 PM CDT 650 mg $ Given 10/06/2022 12:19 PM CDT 650 mg atorvastatin (Lipitor) tablet 40 mg 40 mg, Oral, AT BEDTIME, First dose on Wed10/02/22 at 2100, Until Discontinued $ Given 10/06/2022 8:55 PM CDT 40 mg $ Given 10/05/2022 8:51 PM CDT 40 mg $ Given 10/04/2022 8:17 PM CDT 40 mg bisacodyl EC (Dulcolax) tablet 5 mg 5 mg, Oral, DAILY PRN, Constipation, Starting on Wed10/02/22 at 1056, Until Wed10/07/22 at 1312, Do not take within 1 hour of antacid, milk or milk product. Do not chew, crush or cut in half. buPROPion SR 12hr (Wellbutrin-SR) tablet 100 mg 100 mg, Oral, 2 TIMES DAILY, First dose on Wed10/02/22 at 1130, Until Discontinued, Do not crush, chew, or cut in half. $ Given 10/07/2022 8:27 AM CDT 100 mg $ Given 10/06/2022 9:02 PM CDT 100 mg $ Given 10/06/2022 8:35 AM CDT 100 mg calcitriol (Rocaltrol) capsule 0.5 mcg 0.5 mcg, Oral, 2 TIMES DAILY (,), First dose on Wed10/02/22 at 1600, Until Discontinued $ Given 10/07/2022 4:05 AM CDT 0.5 mcg $ Given 10/06/2022 4:44 PM CDT 0.5 mcg $ Given 10/06/2022 5:16 AM CDT 0.5 mcg chlorhexidine (Peridex) 0.12 % oral solution 15 mL 15 mL, Mouth/Throat, 2 TIMES DAILY, First dose on Wed10/02/22 at 1100, Until Discontinued, Swab oral cavity. . WASTE DISPOSAL INSTRUCTIONS: Black Bin Disposal required. $ Given 10/06/2022 8:29 AM CDT 15 mL $ Given 10/03/2022 8:00 AM CDT 15 mL $ Given 10/02/2022 8:42 PM CDT 15 mL clonazePAM (KlonoPIN) tablet 0.5 mg 0.5 mg, Oral, DAILY, First dose (after last modification) on Wed10/04/22 at 0900, Until Discontinued $ Given 10/07/2022 8:28 AM CDT 0.5 mg $ Given 10/06/2022 8:29 AM CDT 0.5 mg $ Given 10/05/2022 8:39 AM CDT 0.5 mg clonazePAM (KlonoPIN) tablet 0.75 mg 0.75 mg, Oral, DAILY, First dose on Wed10/02/22 at 1130, Until Discontinued $ Given 10/03/2022 8:00 AM CDT 0.75 mg $ Given 10/02/2022 4:06 PM CDT 0.75 mg cyclobenzaprine (Flexeril) tablet 5 mg 5 mg, Oral, 3 TIMES DAILY PRN, muscle spasms, Starting on Wed10/02/22 at 1058, Until Wed10/07/22 at 1312 $ Given 10/07/2022 4:07 AM CDT 5 mg $ Given 10/06/2022 5:16 AM CDT 5 mg $ Given 10/05/2022 8:57 PM CDT 5 mg famotidine (Pepcid) tablet 20 mg 20 mg, Oral, 2 TIMES DAILY, First dose on Wed10/02/22 at 1130, Until Discontinued $ Given 10/07/2022 8:28 AM CDT 20 m g $ Given 10/06/2022 8:55 PM CDT 20 mg $ Given 10/06/2022 8:29 AM CDT 20 mg fentaNYL (PF) (Sublimaze) injection 50 mcg 50 mcg, Intravenous, EVERY 10 MIN PRN, Moderate Pain, 4 doses, Starting on Wed10/02/22 at 1141, Until Wed10/02/22 at 1347, Maximum total of 4 doses. If patient reaches max total dose, please consult anesthesiologist prior to further administration of pain meds. Hold pain meds if there are signs of hypoventilation. Patient preference for lesser PRN pain meds may be honored when the patient requests a less strong medication, a lower dose, or a less intrusive route of administration when the lesser drug, dose and route have been ordered for the patient. This patient request must be documented in the MAR., PACU $ Given 10/02/2022 12:01 PM CDT 50 mcg $ Given 10/02/2022 11:47 AM CDT 50 mcg fish oil/omega-3 fatty acids (Promega;Cardi-Madison 3) capsule 1,000 mg 1,000 mg, Oral, 3 TIMES DAILY WITH MEALS, First dose on Wed10/02/22 at 1200, Until Discontinued $ Given 10/06/2022 8:28 AM CDT 1,000 mg fluticasone propionate (Flonase) nasal spray 2 spray 2 spray, Each Nostril, DAILY, First dose on Wed10/02/22 at 1130, Until Discontinued, Shake gently before use. $ Given 10/04/2022 8:03 AM CDT 2 spr ays $ Given 10/03/2022 8:00 AM CDT 2 sprays $ Given 10/02/2022 3:17 PM CDT 2 sprays gabapentin (Neurontin) capsule 300 mg 300 mg, Oral, 3 TIMES DAILY, First dose on Wed10/02/22 at 1130, Until Discontinued $ Given 10/07/2022 8:27 AM CDT 300 mg $ Given 10/06/2022 8:55 PM CDT 300 mg $ Given 10/06/2022 2:58 PM CDT 300 mg heparin injection 5,000 Units 5,000 Units, Subcutaneous, EVERY 8 HOURS, First dose on Wed10/03/22 at 1400, Until Discontinued $ Given 10/07/2022 5:32 AM CDT 5,000 Units Abdominal Tissue $ Given 10/06/2022 9:03 PM CDT 5,000 Units A bdominal Tissue $ Given 10/06/2022 2:59 PM CDT 5,000 Units A bd Left Lower Quadrant hydrALAZINE (Apresoline) injection 10 mg 10 mg, Intravenous, EVERY 30 MIN PRN, Hypertension, SBP greater than 150 mmHg, SBP > 150, Starting on Wed10/02/22 at 1053, Until Wed10/07/22 at 1312, For SBP greater than 150 if HR less than 70. HYDROmorphone (Dilaudid) 10 mg/50 mL BEATER ENGINEER BEATER ENGINEER Dose: 0.2 mg, BEATER ENGINEER Lockout Interval: 10 Minutes, One Hour Limit\Max Limit: 1.2 mg, Clinician Bolus (Load): 0.4 mg, Intravenous, BEATER ENGINEER, Starting on Wed10/02/22 at 1130, Until Wed10/05/22 at 0909, BEATER ENGINEER Pump Therapy: Normal Risk (BEATER ENGINEER Only) $ New Bag/Syringe 10/04/2022 10:31 AM CDT $ New Bag/Syringe 10/02/2022 1:49 PM CDT HYDROmorphone (Dilaudid) injection 0.5 mg 0.5 mg, Intravenous, EVERY 10 MIN PRN, Severe Pain, 4 doses, Starting on Wed10/02/22 at 1141, Until Wed10/02/22 at 1347, Maximum total of 4 doses If patient reaches max total dose, please consult anesthesiologist prior to further administration of pain meds. Hold pain meds if there are signs of hypoventilation. Patient preference for lesser PRN pain meds may be honored when the patient requests a less strong medication, a lower dose, or a less intrusive route of administration when the lesser drug, dose and route have been ordered for the patient. This patient request must be documented in the MAR., PACU $ Given 10/02/2022 12:27 PM CDT 0.5 mg $ Given 10/02/2022 11:53 AM CDT 0.5 mg labetalol (Normodyne; Trandate) injection 10 mg 10 mg, Intravenous, EVERY 15 MIN PRN, Hypertension, SBP greater than 150 mmHg, SBP > 150, Starting on Wed10/02/22 at 1053, Until Wed10/07/22 at 1312, For SBP greater than 150 if HR greater than or equal to 70. $ Given 10/06/2022 8:51 PM CDT 10 mg $ Given 10/02/2022 1:10 PM CDT 10 mg levothyroxine (Synthroid) tablet 112 mcg 112 mcg, Oral, DAILY, First dose on Wed10/02/22 at 1130, Until Discontinued, Take in the morning on an empty stomach. Do not give within 4 hours of antacids, iron or calcium supplements. $ Given 10/07/2022 8:28 AM CDT 112 mcg $ Given 10/06/2022 8:29 AM CDT 112 mcg $ Given 10/05/2022 8:40 AM CDT 112 mcg lidocaine (Lidoderm) 5 % patch 1 patch 1 patch, Administer over 12 Hours, EVERY 24 HOURS, 5 doses, First dose on Wed10/02/22 at 1130, Last dose on Wed10/06/22 at 1130, Apply to back and remove after [address] patch on intact skin. Do NOT apply to open wounds, cuts, or incisions $ Applied 10/06/2022 12:20 PM CDT 1 patch Back $ Applied 10/05/2022 10:55 AM CDT 1 patch B ack $ Applied 10/03/2022 11:51 AM CDT 1 patch B ack loratadine (Claritin) tablet 10 mg 10 mg, Oral, DAILY, First dose on Wed10/02/22 at 1130, Until Discontinued $ Given 10/07/2022 8:27 AM CDT 10 mg $ Given 10/06/2022 8:29 AM CDT 10 mg $ Given 10/05/2022 8:39 AM CDT 10 mg multivitamin daily tablet 1 tablet 1 tablet, Oral, DAILY, First dose on Wed10/02/22 at 1130, Until Discontinued, . WASTE DISPOSAL INSTRUCTIONS: Black Bin Disposal required. $ Given 10/07/2022 8:27 AM CDT 1 tablet $ Given 10/06/2022 8:29 AM CDT 1 tablet naloxone (Narcan) injection 0.2 mg 0.2 mg, Intravenous, PRN, Other, If unable to arouse patient or if respiratory depression is present., 4 doses, Starting on Wed10/02/22 at 1047, Until Wed10/07/22 at 1312, Mix 0.4 mg Naloxone in 9 mL Normal Saline for slow IV push. Administer dilute Naloxone solution IV very slowly (5 mL over 2 minutes) while observing the patient response and titrating to effect. If no response, call Rapid Response, continue IV Naloxone at the same rate up to a total of 0.8 mg or 20 mL of diluted Naloxone, and notify physician immediately. naloxone (Narcan) injection 0.2 mg 0.2 mg, Intravenous, PRN, Other, If unable to arouse patient or if respiratory depression is present., 4 doses, Starting on Wed10/02/22 at 1059, Until Wed10/07/22 at 1312, Mix 0.4 mg Naloxone in 9 mL Normal Saline for slow IV push. Administer dilute Naloxone solution IV very slowly (5 mL over 2 minutes) while observing the patient response and titrating to effect. If no response, call Rapid Response, continue IV Naloxone at the same rate up to a total of 0.8 mg or 20 mL of diluted Naloxone, and notify physician immediately. nicotine (Nicoderm CQ) patch 14 mg 14 mg, Administer over 24 Hours, DAILY, First dose on Wed10/02/22 at 1130, Until Discontinued, Remove old patch before applying new patch. This patch may contain metal and is not compatible with MRI. Notify radiology of patch location upon arrival to MRI. . WASTE DISPOSAL INSTRUCTIONS: P-Listed item. Special Disposal Required. . $ Applied 10/03/2022 7:52 AM CDT 14 mg Right Arm $ Applied 10/02/2022 4:04 PM CDT 14 mg Le ft Arm ondansetron (disintegrating) (Zofran ODT) tablet 4 mg 4 mg, Oral, EVERY 6 HOURS PRN, Nausea/Vomiting, Starting on Wed10/02/22 at 1055, Until Wed10/07/22 at 1312, Dissolved orally on tongue Dissolved orally on tongue ondansetron (Zofran) injection 4 mg 4 mg, Intravenous, EVERY 6 HOURS PRN, Nausea/Vomiting, Starting on Wed10/02/22 at 1055, Until Wed10/07/22 at 1312, Administer IV if patient is NPO, actively vomiting, or unable to swallow. oxyBUTYnin CR 24hr (Ditropan-XL) tablet 5 mg 5 mg, Oral, DAILY, First dose on Wed10/02/22 at 1130, Until Discontinued, Do not crush, chew, or cut in half. $ Given 10/07/2022 8:29 AM CDT 5 mg $ Given 10/06/2022 8:29 AM CDT 5 mg $ Given 10/05/2022 8:39 AM CDT 5 mg oxyCODONE-acetaminophen (Percocet) 10-325 MG tablet 1 tablet 1 tablet, Oral, EVERY 4 HOURS PRN, Severe Pain, Starting on Wed10/05/22 at 0909, Until Wed10/07/22 at 1312, Patient preference for lesser PRN pain meds may be honored when the patient requests a less strong medication, a lower dose, or a less intrusive route of administration when the lesser drug, dose and route have been ordered for the patient. This patient request must be documented in the MAR., Allow a repeat dose for severe pain? No $ Given 10/07/2022 8:30 AM CDT 1 tablet $ Given 10/07/2022 4:07 AM CDT 1 tablet $ Given 10/06/2022 8:29 AM CDT 1 tablet oxyCODONE-acetaminophen (Percocet) 5-325 MG tablet 1 tablet 1 tablet, Oral, EVERY 4 HOURS PRN, Moderate Pain, Starting on Wed10/05/22 at 0909, Until Wed10/07/22 at 1312, Patient preference for lesser PRN pain meds may be honored when the patient requests a less strong medication, a lower dose, or a less intrusive route of administration when the lesser drug, dose and route have been ordered for the patient. This patient request must be documented in the MAR. $ Given 10/06/2022 6:03 PM CDT 1 tablet pantoprazole EC (Protonix) tablet 40 mg 40 mg, Oral, DAILY, First dose on Wed10/02/22 at 1130, Until Discontinued, Do not crush, chew, or cut in half. $ Given 10/07/2022 8:28 AM CDT 40 mg $ Given 10/06/2022 8:29 AM CDT 40 mg $ Given 10/05/2022 8:40 AM CDT 40 mg PARoxetine (Paxil) tablet 40 mg 40 mg, Oral, DAILY, First dose on Wed10/02/22 at 1130, Until Discontinued $ Given 10/07/2022 8:28 AM CDT 40 mg $ Given 10/06/2022 8:29 AM CDT 40 mg $ Given 10/05/2022 8:40 AM CDT 40 mg polyethylene glycol 3350 (Miralax) packet 17 g 17 g, Oral, DAILY PRN, Constipation, Starting on Wed10/02/22 at 1055, Until Wed10/07/22 at 1312, Mix in 8 ounces of water, juice, soda, coffee or tea prior to administration prochlorperazine (Compazine) injection 10 mg 10 mg, Intravenous, ONCE PRN, Nausea/Vomiting, 1 dose, Starting on Wed10/02/22 at 1141, Until Wed10/02/22 at 1152, First choice, PACU $ Given 10/02/2022 11:52 AM CDT 10 mg senna (Senokot) tablet 17.2 mg 17.2 mg, Oral, DAILY, First dose on Wed10/02/22 at 1130, Until Discontinued $ Given 10/06/2022 8:29 AM CDT 17.2 mg $ Given 10/05/2022 8:39 AM CDT 17.2 mg $ Given 10/03/2022 8:00 AM CDT 17.2 mg simethicone (Mylicon) chew tablet 80 mg 80 mg, Oral, EVERY 6 HOURS PRN, Gas Pain, Starting on Wed10/02/22 at 1055, Until Wed10/07/22 at 1312 traZODone (Desyrel) tablet 50 mg 50 mg, Oral, AT BEDTIME, First dose on Wed10/02/22 at 2100, Until Discontinued $ Given 10/06/2022 8:55 PM CDT 50 mg $ Given 10/05/2022 8:51 PM CDT 50 mg $ Given 10/04/2022 8:17 PM CDT 50 mg vitamin E (Tocopheryl) capsule 200 Units 200 Units, Oral, 3 TIMES DAILY, First dose on Wed10/02/22 at 1130, Until Discontinued $ Given 10/06/2022 8:29 AM CDT 200 Units $ Given 10/03/2022 9:08 PM CDT 200 Units $ Given 10/02/2022 8:42 PM CDT 200 Units documented in this encounter Active and Recently Administered Medications Times are shown in CDT. Scheduled Medication Order 10/05/2022 10/06/2022 10/07/2022 0.9% NaCl injection 3 mL(Linked Group 1) 3 mL, Intracatheter, EVERY 8 HOURS, First dose on Wed10/01/22 at 2200, Until Discontinued, Flush peripheral IV catheter with 3 mL of normal saline every 8 hours. 0600 (Canceled Entry - Provider: Jarocho Higgins RN)1508 ($ Given - Provider: Pravin Dennis RN)2047 (Not Administered - Provider: Yaneth Camejo RN - Reason: IV Currently Infusing) 0517 (Not Administered - Provider: Yaneth Camejo RN - Reason: IV Currently Infusing)1355 (Not Administered - Provider: Felicity Kwan RN - Reason: IV Currently Infusing)2057 (Not Administered - Provider: Yaneth Camejo RN - Reason: IV Currently Infusing) 0532 (Not Administered - Provider: Yaneth Camejo RN - Reason: IV Currently Infusing) acetaminophen (Tylenol) tablet 650 mg () 650 mg, Oral, EVERY 6 HOURS, 20 doses, First dose on Wed10/02/22 at 1200, Last dose on Wed10/07/22 at 0600, Patient preference for lesser PRN pain meds may be honored when the patient requests a less strong medication, a lower dose, or a less intrusive route of administration when the lesser drug, dose and route have been ordered for the patient. This patient request must be documented in the 201 ($ Given - Provider: Jarocho Higgins RN)0552 ($ Given - Provider: Jarocho Higgins RN)1055 ($ Given - Provider: Pravin Dennis RN)1833 (Not Administered - Provider: Pravin Dennis RN - Reason: Refused-Patient - Comment: no pain at this time.) 0041 (Not Administered - Provider: Yaneth Camejo RN - Reason: Patient sleeping)0516 ($ Given - Provider: Yaneth Camejo RN)1219 ($ Given - Provider: Felicity Kwan RN)1744 ($ Given - Provider: Felicity Kwan, JOSY) 0010 ($ Given - Provider: Yaneth Camejo RN)0532 (Not Administered - Provider: Yaneth Camejo RN - Reason: Refused-Patient) atorvastatin (Lipitor) tablet 40 mg 40 mg, Oral, AT BEDTIME, First dose on Wed10/02/22 at 2100, Until Discontinued 2050 ($ Given - Provider: Yaneth Camejo RN) 2054 ($ Given - Provider: Yaneth Camejo RN) buPROPion SR 12hr (Wellbutrin-SR) tablet 100 mg 100 mg, Oral, 2 TIMES DAILY, First dose on Wed10/02/22 at 1130, Until Discontinued, Do not crush, chew, or cut in half. 0840 ($ Given - Provider: Pravin Dennis RN)2050 ($ Given - Provider: Yaneth Camejo RN) 0835 ($ Given - Provider: Felicity Kwan, JOSY)2101 ($ Given - Provider: Yaneth Camejo RN) 0827 ($ Given - Provider: Ellen Huston RN) calcitriol (Rocaltrol) capsule 0.5 mcg 0.5 mcg, Oral, 2 TIMES DAILY (), First dose on Wed10/02/22 at 1600, Until Discontinued 0552 ($ Given - Provider: Jarocho Higgins RN)1507 ($ Given - Provider: Pravin Dennis RN) 0516 ($ Given - Provider: Yaneth Camejo RN)1644 ($ Given - Provider: Felicity Kwan, JOSY) 0405 ($ Given - Provider: Yaneth Camejo RN) chlorhexidine (Peridex) 0.12 % oral solution 15 mL 15 mL, Mouth/Throat, 2 TIMES DAILY, First dose on Wed10/02/22 at 1100, Until Discontinued, Swab oral cavity. . WASTE DISPOSAL INSTRUCTIONS: Black Bin Disposal required. 0839 (Not Administered - Provider: Pravin Dennis RN - Reason: Refused-Patient)2049 (Not Administered - Provider: Yaneth Camejo RN - Reason: Refused-Patient) 08 ($ Given - Provider: Felicity Kwan RN)2055 (Not Administered - Provider: Yaneth Camejo RN - Reason: Refused-Patient) 08 (Not Administered - Provider: Ellen Huston RN - Reason: Refused-Patient) clonazePAM (KlonoPIN) tablet 0.5 mg 0.5 mg, Oral, DAILY, First dose (after last modification) on Wed10/04/22 at 0900, Until Discontinued 0839 ($ Given - Provider: Pravin Dennis RN) 0829 ($ Given - Provider: Felicity Kwan, JOSY) 08 ($ Given - Provider: Ellen Huston, JOSY) famotidine (Pepcid) tablet 20 mg 20 mg, Oral, 2 TIMES DAILY, First dose on Wed10/02/22 at 1130, Until Discontinued 0839 ($ Given - Provider: Pravin Dennis RN)2050 ($ Given - Provider: Yaneth Camejo, JOSY) 08 ($ Given - Provider: Felicity Kwan, JOSY)2054 ($ Given - Provider: Yaneth Camejo, JOSY) 08 ($ Given - Provider: Ellen Huston, JOSY) fish oil/omega-3 fatty acids (Promega;Cardi-Madison 3) capsule 1,000 mg 1,000 mg, Oral, 3 TIMES DAILY WITH MEALS, First dose on Wed10/02/22 at 1200, Until Discontinued 0840 (Not Administered - Provider: Pravin Dennis RN - Reason: Refused-Patient)1105 (Not Administered - Provider: Pravin Dennis RN - Reason: Refused-Patient)1729 (Not Administered - Provider: Pravin Dennis RN - Reason: Refused-Patient) 0828 ($ Given - Provider: Felicity Kwan, JOSY)1219 (Not Administered - Provider: Felicity Kwan RN - Reason: Refused-Patient)1744 (Not Administered - Provider: Felicity Kwan RN - Reason: Refused-Patient) 0828 (Not Administered - Provider: Ellen Huston RN - Reason: Refused-Patient)1200 (Due) fluticasone propionate (Flonase) nasal spray 2 spray 2 spray, Each Nostril, DAILY, First dose on Wed10/02/22 at 1130, Until Discontinued, Shake gently before use. 0840 (Not Administered - Provider: Pravin Dennis RN - Reason: Refused-Patient) 0831 (Not Administered - Provider: Felicity Kwan RN - Reason: Refused-Patient) 0827 (Not Administered - Provider: Ellen Huston RN - Reason: Refused-Patient) gabapentin (Neurontin) capsule 300 mg 300 mg, Oral, 3 TIMES DAILY, First dose on Wed10/02/22 at 1130, Until Discontinued 0840 ($ Given - Provider: Pravin Dennis RN)1507 ($ Given - Provider: Pravin Dennis RN)2051 ($ Given - Provider: Yaneth Camejo RN) 0835 ($ Given - Provider: Felicity Kwan RN)1458 ($ Given - Provider: Felicity Kwan RN)2055 ($ Given - Provider: Yaneth Camejo, JOSY) 0827 ($ Given - Provider: Ellen Huston, JOSY) heparin injection 5,000 Units 5,000 Units, Subcutaneous, EVERY 8 HOURS, First dose on Wed10/03/22 at 1400, Until Discontinued 0552 ($ Given - Provider: Jarocho Higgins RN)1507 ($ Given - Provider: Pravin Dennis RN)2100 ($ Given - Provider: Yaneth Camejo RN) 0516 ($ Given - Provider: Yaneth Camejo RN)1459 ($ Given - Provider: Felicity Kwan RN)2103 ($ Given - Provider: Yaneth Camejo, JOSY) 0532 ($ Given - Provider: Yaneth Camejo RN) levothyroxine (Synthroid) tablet 112 mcg 112 mcg, Oral, DAILY, First dose on Wed10/02/22 at 1130, Until Discontinued, Take in the morning on an empty stomach. Do not give within 4 hours of antacids, iron or calcium supplements. 0840 ($ Given - Provider: Pravin Dennis RN) 0829 ($ Given - Provider: Felicity Kwan RN) 0828 ($ Given - Provider: Ellen Huston, JOSY) lidocaine (Lidoderm) 5 % patch 1 patch () 1 patch, Administer over 12 Hours, EVERY 24 HOURS, 5 doses, First dose on Wed10/02/22 at 1130, Last dose on Wed10/06/22 at 1130, Apply to back and remove after [address] patch on intact skin. Do NOT apply to open wounds, cuts, or incisions 1055 ($ Applied - Provider: Pravin Dennis RN)2255 (Removed - Provider: Yaneth Camejo, RN) 1220 ($ Applied - Provider: Felicity Kwan, JOSY) 0017 (Removed - Provider: Yaneth Camejo, RN) loratadine (Claritin) tablet 10 mg 10 mg, Oral, DAILY, First dose on Wed10/02/22 at 1130, Until Discontinued 0839 ($ Given - Provider: Pravin Dennis RN) 0829 ($ Given - Provider: Felicity Kwan RN) 0827 ($ Given - Provider: Ellen Huston RN) multivitamin daily tablet 1 tablet 1 tablet, Oral, DAILY, First dose on Wed10/02/22 at 1130, Until Discontinued, . WASTE DISPOSAL INSTRUCTIONS: Black Bin Disposal required. 0840 (Not Administered - Provider: Pravin Dennis RN - Reason: Refused-Patient) 0829 ($ Given - Provider: Felicity Kwan RN) 0827 ($ Given - Provider: Ellen Huston, JOSY) nicotine (Nicoderm CQ) patch 14 mg 14 mg, Administer over 24 Hours, DAILY, First dose on Wed10/02/22 at 1130, Until Discontinued, Remove old patch before applying new patch. This patch may contain metal and is not compatible with MRI. Notify radiology of patch location upon arrival to MRI. . WASTE DISPOSAL INSTRUCTIONS: P-Listed item. Special Disposal Required. . 0838 (Not Administered - Provider: Pravin Dennis RN - Reason: Refused-Patient) 0830 (Not Administered - Provider: Felicity Kwan RN - Reason: Refused-Patient) 0827 (Not Administered - Provider: Ellen Huston RN - Reason: Refused-Patient) oxyBUTYnin CR 24hr (Ditropan-XL) tablet 5 mg 5 mg, Oral, DAILY, First dose on Wed10/02/22 at 1130, Until Discontinued, Do not crush, chew, or cut in half. 0839 ($ Given - Provider: Pravin Dennis RN) 0829 ($ Given - Provider: Felicity Kwan, JOSY) 0829 ($ Given - Provider: Ellen Huston, JOSY) pantoprazole EC (Protonix) tablet 40 mg 40 mg, Oral, DAILY, First dose on Wed10/02/22 at 1130, Until Discontinued, Do not crush, chew, or cut in half. 0840 ($ Given - Provider: Pravin Dennis RN) 0829 ($ Given - Provider: Felicity Kwan, JOSY) 0828 ($ Given - Provider: Ellen Huston, JOSY) PARoxetine (Paxil) tablet 40 mg 40 mg, Oral, DAILY, First dose on Wed10/02/22 at 1130, Until Discontinued 0840 ($ Given - Provider: Pravin Dennis RN) 0829 ($ Given - Provider: Felicity Kwan, JOSY) 0828 ($ Given - Provider: Ellen Huston, JOSY) senna (Senokot) tablet 17.2 mg 17.2 mg, Oral, DAILY, First dose on Wed10/02/22 at 1130, Until Discontinued 0839 ($ Given - Provider: Pravin Dennis RN) 0829 ($ Given - Provider: Felicity Kwan, JOSY) 0828 (Not Administered - Provider: Ellen Huston RN - Reason: Refused-Patient) traZODone (Desyrel) tablet 50 mg 50 mg, Oral, AT BEDTIME, First dose on Wed10/02/22 at 2100, Until Discontinued 2050 ($ Given - Provider: Yaneth Camejo, JOSY) 2054 ($ Given - Provider: Yaneth Camejo, JOSY) vitamin E (Tocopheryl) capsule 200 Units 200 Units, Oral, 3 TIMES DAILY, First dose on Wed10/02/22 at 1130, Until Discontinued 0841 (Not Administered - Provider: Pravin Dennis RN - Reason: Refused-Patient)1411 (Not Administered - Provider: Pravin Dennis RN - Reason: Refused-Patient)2050 (Not Administered - Provider: Yaneth Camejo RN - Reason: Refused-Patient) 0829 ($ Given - Provider: Felicity Kwan RN)1458 (Not Administered - Provider: Felicity Kwan RN - Reason: Refused-Patient)2056 (Not Administered - Provider: Yaneth Camejo RN - Reason: Refused-Patient) 0829 (Not Administered - Provider: Ellen Huston RN - Reason: Refused-Patient) Continuous Medication Order 10/05/2022 10/06/2022 10/07/2022 0.9% NaCl infusion (CANCELED) at 75 mL/hr, Intravenous, CONTINUOUS, Starting on Wed10/02/22 at 1130, Until Wed10/07/22 at 0959 2058 ($ New Bag/Syringe - Provider: Yaneth Camejo RN) 1034 ($ New Bag/Syringe - Provider: Salome Lucero RN) 0011 ($ New Bag/Syringe - Provider: Yaneth Camejo RN) PRN Medication Order 10/05/2022 10/06/2022 10/07/2022 0.9% NaCl injection 1-10 mL(Linked Group 1) 1-10 mL, Intracatheter, PRN, Other, peripheral line flush, Starting on Josi 10/01/22 at 2028, Until Wed10/07/22 at 1312, Flush peripheral IV catheter with 1-10 mL of normal saline before and after medications and prn to clear blood from the line or to verify patency. bisacodyl EC (Dulcolax) tablet 5 mg 5 mg, Oral, DAILY PRN, Constipation, Starting on Wed10/02/22 at 1056, Until Wed10/07/22 at 1312, Do not take within 1 hour of antacid, milk or milk product. Do not chew, crush or cut in half. cyclobenzaprine (Flexeril) tablet 5 mg 5 mg, Oral, 3 TIMES DAILY PRN, muscle spasms, Starting on Wed10/02/22 at 1058, Until Wed10/07/22 at 1312 1507 ($ Given - Provider: Pravin Dennis RN)2056 ($ Given - Provider: Yaneth Camejo RN) 0516 ($ Given - Provider: Yaneth Camejo RN) 0407 ($ Given - Provider: Yaneth Camejo RN) hydrALAZINE (Apresoline) injection 10 mg 10 mg, Intravenous, EVERY 30 MIN PRN, Hypertension, SBP greater than 150 mmHg, SBP > 150, Starting on Wed10/02/22 at 1053, Until Wed10/07/22 at 1312, For SBP greater than 150 if HR less than 70. labetalol (Normodyne; Trandate) injection 10 mg 10 mg, Intravenous, EVERY 15 MIN PRN, Hypertension, SBP greater than 150 mmHg, SBP > 150, Starting on Wed10/02/22 at 1053, Until Wed10/07/22 at 1312, For SBP greater than 150 if HR greater than or equal to 70. 2050 ($ Given - Provider: Yaneth Camejo RN) naloxone (Narcan) injection 0.2 mg 0.2 mg, Intravenous, PRN, Other, If unable to arouse patient or if respiratory depression is present., 4 doses, Starting on Wed10/02/22 at 1047, Until Wed10/07/22 at 1312, Mix 0.4 mg Naloxone in 9 mL Normal Saline for slow IV push. Administer dilute Naloxone solution IV very slowly (5 mL over 2 minutes) while observing the patient response and titrating to effect. If no response, call Rapid Response, continue IV Naloxone at the same rate up to a total of 0.8 mg or 20 mL of diluted Naloxone, and notify physician immediately. naloxone (Narcan) injection 0.2 mg 0.2 mg, Intravenous, PRN, Other, If unable to arouse patient or if respiratory depression is present., 4 doses, Starting on Wed10/02/22 at 1059, Until Wed10/07/22 at 1312, Mix 0.4 mg Naloxone in 9 mL Normal Saline for slow IV push. Administer dilute Naloxone solution IV very slowly (5 mL over 2 minutes) while observing the patient response and titrating to effect. If no response, call Rapid Response, continue IV Naloxone at the same rate up to a total of 0.8 mg or 20 mL of diluted Naloxone, and notify physician immediately. ondansetron (disintegrating) (Zofran ODT) tablet 4 mg(Linked Group 2) 4 mg, Oral, EVERY 6 HOURS PRN, Nausea/Vomiting, Starting on Wed10/02/22 at 1055, Until Wed10/07/22 at 1312, Dissolved orally on tongue Dissolved orally on tongue ondansetron (Zofran) injection 4 mg(Linked Group 2) 4 mg, Intravenous, EVERY 6 HOURS PRN, Nausea/Vomiting, Starting on Wed10/02/22 at 1055, Until Wed10/07/22 at 1312, Administer IV if patient is NPO, actively vomiting, or unable to swallow. oxyCODONE-acetaminophen (Percocet) 10-325 MG tablet 1 tablet 1 tablet, Oral, EVERY 4 HOURS PRN, Severe Pain, Starting on Wed10/05/22 at 0909, Until Wed10/07/22 at 1312, Patient preference for lesser PRN pain meds may be honored when the patient requests a less strong medication, a lower dose, or a less intrusive route of administration when the lesser drug, dose and route have been ordered for the patient. This patient request must be documented in the MAR., Allow a repeat dose for severe pain? No 1055 ($ Given - Provider: Pravin Dennis RN)1507 ($ Given - Provider: Pravin Dennis RN)2057 ($ Given - Provider: Yaneth Camejo RN) 0829 ($ Given - Provider: Felicity Kwan RN) 0407 ($ Given - Provider: Yaneth Camejo RN)0830 ($ Given - Provider: Ellen Huston RN) oxyCODONE-acetaminophen (Percocet) 5-325 MG tablet 1 tablet 1 tablet, Oral, EVERY 4 HOURS PRN, Moderate Pain, Starting on Wed10/05/22 at 0909, Until Wed10/07/22 at 1312, Patient preference for lesser PRN pain meds may be honored when the patient requests a less strong medication, a lower dose, or a less intrusive route of administration when the lesser drug, dose and route have been ordered for the patient. This patient request must be documented in the MAR. 1803 ($ Given - Provider: Felicity Kwan RN) polyethylene glycol 3350 (Miralax) packet 17 g 17 g, Oral, DAILY PRN, Constipation, Starting on Wed10/02/22 at 1055, Until Wed10/07/22 at 1312, Mix in 8 ounces of water, juice, soda, coffee or tea prior to administration simethicone (Mylicon) chew tablet 80 mg 80 mg, Oral, EVERY 6 HOURS PRN, Gas Pain, Starting on Wed10/02/22 at 1055, Until Wed10/07/22 at 1312 Linked Groups Order Group 1: SALINE LOCK, INSERT AND MAINTAIN (CANCELED) Routine, CONTINUOUS, Starting on Josi 10/01/22 at 2030, Until Specified, New collection And 0.9% NaCl injection 3 mLJump to med 3 mL, Intracatheter, EVERY 8 HOURS, First dose on Wed10/01/22 at 2200, Until Discontinued, Flush peripheral IV catheter with 3 mL of normal saline every 8 hours. And 0.9% NaCl injection 1-10 mLJump to med 1-10 mL, Intracatheter, PRN, Other, peripheral line flush, Starting on Wed10/01/22 at 2028, Until Wed10/07/22 at 1312, Flush peripheral IV catheter with 1-10 mL of normal saline before and after medications and prn to clear blood from the line or to verify patency. Group 2: ondansetron (disintegrating) (Zofran ODT) tablet 4 mgJump to med 4 mg, Oral, EVERY 6 HOURS PRN, Nausea/Vomiting, Starting on Wed10/02/22 at 1055, Until Wed10/07/22 at 1312, Dissolved orally on tongue Dissolved orally on tongue Or ondansetron (Zofran) injection 4 mgJump to med 4 mg, Intravenous, EVERY 6 HOURS PRN, Nausea/Vomiting, Starting on Wed10/02/22 at 1055, Until Wed10/07/22 at 1312, Administer IV if patient is NPO, actively vomiting, or unable to swallow. documented in this encounter Care Teams Addictions Therapist Relationship Specialty Start Date End Date Taniya Grimes MD [address] [place] [phone] PCP - General 07/15/22 10/06/22 Joseph Manzanares MD [address] [place] [phone] PCP - General Internal Medicine 10/07/22 04/20/23 Adriana Adams DO [address] [place] [address] Resident - PCP Internal Medicine 04/06/22 01/12/23 documented as of this encounter
--- OUTSIDE RECORDS SUMMARY | 2024-07-23 07:11 | XMS_ITS | Encounter Summary ---
Author Organization [facility] Address [address] [place] [address] Care Team Providers Care Bottle Hop Name Role Phone Adriana Adams DO Unavailable Joseph Manzanares MD Primary Care Provider [phone] Reason for Visit * Reason Onset Date Comments Reminder Call 10/20/2022 Encounter Details Date Type Department Care Team (Late st Contact Info) Description 10/20/2022 Telephone Transitional Care at [address] [phone] Mary Beth Aguero, RN Reminder Call Social History Tobacco Use Types Packs/Day Years [...] Date Recorded PHQ2 TOTAL SCORE 0 09/02/2022 [facility] [place] of Occupat ional Health - Occupational Stress [...] encounter Miscellaneous Notes * Telephone Encounter - Mary Beth Aguero, RN - 10/20/2022 10:50 AM CDT Attempted to contact patient to confirm [facility] appointment scheduled for tomorrow at 1300. No answer, VM left, will await call back. documented in this encounter Plan of Treatment Upcoming Encounters Date Type Department Care Team (Late st Contact Info) Description 07/25/2024 10:00 AM TEMPLATE MAKER Office Visit [facility] - Endocrinology [address] [place] [phone] Yosi Bustamante MD [address] [place] [address] 2L [place] [address] 07/26/2024 10:00 AM TEMPLATE MAKER Appointment [facility] [address] [place] [address] Neri Delgado MD [address] [place] [address] 07/26/2024 10:00 AM TEMPLATE MAKER Office Visit [facility] - ENT [address] [place] [phone] Myra Farmer, DISBURSING AGENT [address] [place] [address] 2L [place] [address] 07/26/2024 11:15 AM TEMPLATE MAKER Office Visit [facility] - ENT [address] [place] [phone] Neri Delgado MD [address] [place] [address] 08/02/2024 2:20 PM TEMPLATE MAKER Appointment [facility] [address] [place] [address] 08/02/2024 3:00 PM TEMPLATE MAKER Office Visit [facility] - Hematology/Oncology [address] [place] [phone] Remi Beckett MD [address] [place] [phone] 08/18/2024 1:45 PM TEMPLATE MAKER Office Visit [facility] - ENT [address] [place] [phone] Neri Delgado MD [address] [place] [phone] documented as of this encounter Visit Diagnoses Not on filedocumented in this encounter Care Teams Bottle Hop Relationship Specialty Start Date End Date Joseph Manzanares MD [address] [place] [phone] PCP - General Internal Medicine 10/07/22 04/20/23 Adriana Adams DO [address] [place] [phone] Resident - PCP Internal Medicine 04/06/22 01/12/23 documented as of this encounter
--- OUTSIDE RECORDS SUMMARY | 2024-07-23 07:11 | XMS_ITS | Encounter Summary ---
Author Organization [facility] Address [address] [place] [address] Care Team Providers Care Credit Authorizer Name Role Phone Adriana Adams DO Unavailable Joseph Manzanares MD Primary Care Provider [phone] Reason for Visit * Auth/Cert (Routine) Specialty Diagnoses / Procedures Referred By Contricardo t Referred To Contact Referral ID Status Reason Start Date Expiration Date Visits Re quested Visits Authorized [id number] 1 1 Encounter Details Date Type Department Care Team (Latest Contact Info) Description 10/14/2022 10:25 AM CDT Home Care Visit [facility] [address] [place] [address] Kendra Smyth, ADITYA OT INITIAL EVALUATION Social History Tobacco Use Types Packs/Day Years [...] Recorded PHQ2 TOTAL SCORE 0 09/02/2022 [facility] [place] of Occupat ional Health - Occupational [...] Home Health - Kendra Smyth OT - 10/14/2022 12:45 PM CDT Present Condition/Subjective Findings/Living situation: Patient referred to OT s/p hospitalization at [facility] 10/02-10/07 for C2-T2 fusion and decomp c3-c7. Hx of thryoid ca dx in 2019; thyroidectomy [id number]; then began to lose function in L arm and then found to have cervical tumor and subsequent surgery 10/02. Patient was using rollator for last couple years due to L hip pain. Patient has been on disability since 2020. 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 Lives in mobile home with who is also disabled. She was primary CG but he is self-sufficient for ADL's, uses oxygen, and he is assisting patient right now as able. Currently still planning to get radiation but does not have a schedule yet. PMH:metastatic cervical CA; L RCT (was scheduled for L reverse shoulder replacement on 09/29 but wascancelled due to cervical tumor surgery); L hip OA; chronic fatigue, OCD, PLOF: Had begun to lose function in L UE prior to surgery, used an AD for ambulation due to hip pain. documented in this encounter Plan of Treatment Upcoming Encounters Date Type Department Care Team (Late st Contact Info) Description 07/25/2024 10:00 AM WET PROCESS HEAD MILLER Office Visit [facility] - Endocrinology [address] [place] [address], [place] [phone] Yosi Bustamante MD [address] [place] [address] [place] [address] 07/26/2024 10:00 AM WET PROCESS HEAD MILLER Appointment [facility] [address] [place] [phone] Neri Delgado MD [address] [place] [address] 07/26/2024 10:00 AM WET PROCESS HEAD MILLER Office Visit [facility] - ENT [address] [place] [phone] Myra Farmer, DEPOSITION REPORTER [address] [place] [address] [place] [phone] 07/26/2024 11:15 AM WET PROCESS HEAD MILLER Office Visit [facility] - ENT [address] [place] [phone] Neri Delgado MD [address] [place] [address] 08/02/2024 2:20 PM WET PROCESS HEAD MILLER Appointment [facility] [address] [place] [address] 08/02/2024 3:00 PM WET PROCESS HEAD MILLER Office Visit [facility] - Hematology/Oncology [address] [place] [phone] Remi Beckett MD [address] [place] [phone] 08/18/2024 1:45 PM WET PROCESS HEAD MILLER Office Visit [facility] - ENT [address] [place] [phone] Neri Delgado MD [address] [place] [phone] documented as of this encounter Visit Diagnoses Not on filedocumented in this encounter Home Health Visit - Care Plan Visit Details Visit Type -OT Initial Evalu ation Discipline -Occupational Therapy Problems Problem Description Start [...] DAYS -Don/doff socks using AE/tech with HOPKINS. -Perform shower transfer with SBA using AE/DME as recommended for safety -Perform bathing in shower with min A or less using AE/tech. -Patient to be ind/safe with use of BSC for improved efficiency/safety with toileting at night - Demonstrate safe use of adaptive equipment [...] Health Orders Goal:Additional Home Health Orders Scheduled ADLs Interventions Description: - Instruct in self-care including bathing, toileting, dressing upper body and dressing lower body. - Instruct in use of adaptive equipment and environmental adaptations. - Activities of daily living mobility training with walker. - Assess and make recommendations for increased safety. - Patient and Caregiver education. Problem:Decreased ADLs Goal:Patient demonstrates increased activities of daily living Completed Began education on placement and use of BSC in bedroom for night use; Began educ/recommendations on shower transfer tech/safety. REcommended purchase of suction grab bars and use of shower stool versus standing in shwoer with walker and having sister perform all of bathing tasks. Needs further f/u; education Discussed dressing difficulties and goals Upper Extremity Description: - Instruct in range of motion exercises and flexibility. - Instruct in therapeutic strengthening program. - Instruct in home program. - Patient and caregiver education. Problem:Decreased Upper Extremity Function Goal:Patient improves upper extremity function Completed Issued initial SROM and scapular strength HEP. Need further f/u and education. documented in this encounter Care Teams Credit Authorizer Relationship Specialty Start Date End Date Joseph Manzanares MD [address] [place] [phone] PCP - General Internal Medicine 10/07/22 04/20/23 Adriana Adams DO [address] [place] [phone] Resident - PCP Internal Medicine 04/06/22 01/12/23 documented as of this encounter
--- OUTSIDE RECORDS SUMMARY | 2024-07-23 07:11 | XMS_ITS | Encounter Summary ---
Author Organization [facility] Address [address] [place] [address] Care Team Providers Care Radiology Equipment Servicer Name Role Phone Adriana Adams DO Unavailable Joseph Manzanares MD Primary Care Provider [phone] Reason for Visit * Reason Comments Hospital Discharge Encounter Details Date Type Department Care Team (Latest Contact Info) Description 10/21/2022 1:00 PM CDT Office Visit Transitional Care at [address] [address] Intradural extramedullary spinal tumor (Primary Dx); Need for vaccination; H/O Spinal surgery; Acquired hypothyroidism Social History Tobacco Use Types Packs/Day Years [...] Date Recorded PHQ2 TOTAL SCORE 0 09/02/2022 [facility] [place] of Occupat ional Health - Occupational Stress [...] Sign Reading Time Taken Comments Blood Pressure 102/60 10/21/2022 1:14 PM CDT Pulse 101 10/21/2022 1:14 PM CDT Temperature 36.1 ??C (97 ??F) 10/21/2022 1:14 PM CDT Respiratory Rate 18 10/21/2022 1:14 PM CDT Oxygen Saturation 96% 10/21/2022 1:14 PM CDT Inhaled Oxygen Concentration - - Weight 65.8 kg (145 lb) 10/21/2022 1:14 PM CDT Height 157.5 cm (5' 2) 10/21/2022 1:14 PM CDT Body Mass Index 26.52 10/21/2022 1:14 PM CDT documented in this encounter Functional [...] this encounter Patient Instructions * Patient Instructions* Marlena Yao, MatthewD - 10/21/2022 1:15 PM CDT Vaccinations Recommended: Below vaccines that are recommended based on your age and medical conditions. Please stop by your local pharmacy or ask your physician about these vaccines. For 2022, these vaccines are also available at NO CHARGE via a vaccine shamir with no appointment necessary at [facility] ([facility]) Outpatient Pharmacy: [address] [place] [address]. . Shingles Shot (Shingrix): For those over the age of 50, a 2-dose series should be given 2-6 months apart regardless of previous shingles outbreak or previously received older formulation of vaccine (Zostavax) Today you were given: Shingrix (shingles) COVID bivalent booster documented in this encounter Progress Notes * Marlena Yao PharmD - 10/21/2022 2:00 PM CDT [facility] Medication Reconciliation Note: Clarified outpatient medications with patient using memory. Medication Concerns/Issues: None Current Updated Home Medications: Current Outpatient Medications Medication Sig acetaminophen (TYLENOL) 500 MG tablet Take 2 (two) tablets by mouth every 6 hours as needed Reasons: Pain atorvastatin (Lipitor) 40 MG tablet TAKE 1 TABLET BY MOUTH EVERYDAY AT BEDTIME B Complex Vitamins (B COMPLEX 1 PO) Take by mouth once daily (Patient not taking: Reported on 10/02/2022) buPROPion SR 12hr (Wellbutrin-SR) 100 MG tablet Take 1 (one) tablet by mouth 2 times daily calcitriol (Rocaltrol) 0.5 MCG capsule TAKE 1 CAPSULE BY MOUTH TWICE A DAY [id number] PO Take by mouth once daily [START ON 10/27/2022] celecoxib (CeleBREX) 200 MG capsule Take 1 (one) capsule by mouth once daily cetirizine (ZYRTEC) 10 [...] fluticasone propionate (FLONASE) 50 MCG/ACT nasal spray [place] 2 (two) sprays into each nostril oncedaily gabapentin (Neurontin) 300 MG capsule Take 1 (one) capsule by mouth 3 times daily [id number]-KKI-C-HYAL PO Take 1 tablet by mouth 3 times daily levothyroxine (Synthroid) 112 MCG tablet TAKE 1 TABLET BY MOUTH EVERY DAY Misc Natural Products (NEURIVA PO) Take 1 tablet by mouth 2 times daily oxybutynin CR 24hr (Ditropan-XL) 5 MG tablet Take 1 (one) tablet by mouth once daily oxyCODONE-acetaminophen (Percocet) 10-325 MG tablet Take 1 (one) tablet by mouth every 4 hours as needed pantoprazole EC (Protonix) 40 MG tablet TAKE ONE TABLET BY MOUTH ONCE DAILY FOR STOMACH PARoxetine (PAXIL) 40 MG tablet Take 1 (one) tablet by mouth once daily senna (Senokot Extra Strength) 17.2 MG Take 17.2 mg by mouth once daily traZODone (DESYREL) 50 MG tablet Take 1 (one) tablet by mouth at bedtime vitamin E (TOCOPHERYL) 200 UNIT capsule Take 1 (one) capsule by mouth 3 times daily No current facility-administered medications for this visit. Medication List Updates and Changes Made: deleted magic mouthwash, lidocaine patch, naproxen, miralax added neuriva Med Rec was Completed by: Marlena Yao PharmD 10/21/22 2:00 PM [facility] Vaccination Note: Brisa Hogan is a 62 year old female who was screened for vaccination needs. The patient was provided education regarding need for: COVID booster (Pfizer/Moderna) and Shingles vaccine (Shingrix) vaccine(s). Patient was given COVID booster (Pfizer/Moderna) and Shingles vaccine (Shingrix) vaccine(s) by [facility] at [facility]. Patient experienced no signs or symptoms of adverse reaction after completing the 15-minute observation period. Vaccination Completed by: Marlena Yao PharmD 10/21/22 at 2:00 PM * Samantha Ambrocio PA-C - 10/21/2022 1:31 PM CDTAttached media from the original note were not included. 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 Pain well controlled - removed spinal incision jess today without difficulty, pictures of incision unloaded to media tab and reviewed by neurosurgery prior to staple removal - endocrine f/u 11/02, taking Synthroid 112mcg daily, reimaging scheduled for December - nsgy f/u 11/12 - pain management 11/19 Encounter for vaccination Tobacco Use - using Wellbutritin and occasional nicotine replacement, down to smoking about 3 cigarettes daily - 5 minute counseling on smoking cessation Future Appointments Friday October 21, 2022 3:15 PM Appointment with Mary Beth Sun at [facility] Scheduling ([phone]) [address] [facility] [address] October TBD Appointment with Kendra Smyth at [facility] Scheduling ([phone]) [address] [facility] [address] Sunday October 23, 2022 TBD Appointment with Mary Beth Sun at [facility] Scheduling ([phone]) [address] [facility] [address] Thursday October 27, 2022 TBD Appointment with Kendra Smyth at [facility] Scheduling ([phone]) [address] [place] [address] Thursday October 27, 2022 TBD Appointment with Mary Beth Sun at [facility] Scheduling ([phone]) [address] [place] [address] October TBD Appointment with Kendra Smyth at [facility] Scheduling ([phone]) [address] [place] [address] Sunday October 30, 2022 TBD Appointment with Mary Beth Sun at [facility] Scheduling ([phone]) [address] [facility] [address] Wednesday November 02, 2022 10:20 AM Appointment with Yosi Bustamante at [facility] Endocrinology, Diabetes and Metabolism ([phone]) [address] [place] [phone] Thursday November 03, 2022 TBD Appointment with Kendra Smyth at [facility] Scheduling ([phone]) [address] [facility] [address] November TBD Appointment with Kendra Smyth at [facility] Scheduling ([phone]) [address] [facility] [address] November 3:15 PM Appointment with Merle Parker at [facility] Neurosurgery ([phone]) [address] [facility] [address] November 11:30 AM Appointment with Gerard Gallegos at [facility] ([phone]) [address] [facility] [address] [facility] [address] Friday November 25, 2022 3:00 PM Appointment with Adriana Adams at [facility] General Internal Medicine ([phone]) [address] [facility] [address] December 10:30 AM Appointment with [facility] MRI SCANNER 3 1.5T at [facility] MRI ([phone]) [address] [facility] [address] December 11:30 AM Appointment with Marcio Mcintosh at [facility] RAD ONC ([phone]) [address] [facility] [address] Complexity of Medical Decision-Making: moderate Subjective: Brisa Hogan is an 62 year old female who presents for follow up after planned hospital admission for cervical extramedullary tumor dissection with [facility] neurosurgery. Procedure was tolerated well and she was discharged on 10/07/22. Today, Ms. Hogan feels she is overall recovering well. Her previous shoulder and arm pain has resolved. She still has significant weakness of the left arm, is working with PT with hopes of regaining some function. She denies any lightheadedness, dizziness, new numbness, weakness or change in bowel/bladder habits. No dysuria. Appetite is improving since surgery. No difficulty taking medications.No drainage or significant pain of spinal incision. Patient's medical problems include: Patient Active Problem List: Psychophysiologic insomnia Chronic [...] metastatic to bone (CMS/HCC) Cervical spine tumor Date of Initial Inpatient Discharge: 10/07/22 Date of Successful Post-Discharge Communication with Patient: n/a Date(s) of Unsuccessful Post-Discharge Communication with Patient (Document at least 2 attempts): 10/12, 10/20 Date of Mhkt-bz-Atyf Visit: 10/21/2022 Field Technical Assistant used: N (Y/N) If yes, Field Technical Assistant Name/ID#: n/a Previous Report(s) Reviewed: office notes, operative report, lab reports, xray reports Hospital discharge summary Brief hospital course adapted from [place] MD:10/02/22 - 10/07/22 62 year old??female??with??metastatic??high risk papillary thyroid cancer??(uV2fK0cVj - IVb) s/p??salvage total thyroidectomy and neck dissection??on??02/05/2022??with right neck residual/recurrent disease??and metastases to the spine??s/p revision right central neck dissection. She underwent C2-F3zyxgxx and decompression C3-C7 and resection extramedullary spine tumor. The findings were??extramedullay tumor at C4,5,6. The wound was closed with??jess Today's visit was focused on the following issues: - jess removed from incision - plan for endocrine follow up and reimaging - pain control methods - smoking cessation Past Medical/Surgical/Family/History History: Reviewed and updated in Epic History tab Medication Reconciliation:Reviewed and updated in Epic Medications tab Current Outpatient Medications Medication Sig Dispense Refill ??? acetaminophen (TYLENOL) 500 MG tablet Take 2 tablets by mouth every 6 hours as needed Reasons: Pain ? ? al & mag hydoxide 120mL-diphenhydramine 120 mL-viscous lidocaine 120 mL- nystatin 60 mL (Radiation Oncology Cocktail) suspension Take 5 mL by mouth 3 times daily before meals Combine Maalox 120 mL,diphenhydramine 12.5 mg/5 mL 120 mL,Viscous Lidocaine 120 mL, Nystatin Susp 60 mL. May Subdivide and refill earlier if needed. 420 mL 2 ??? atorvastatin (Lipitor) 40 MG tablet TAKE 1 TABLET BY MOUTH EVERYDAY AT BEDTIME 30 tablet 3 ??? B Complex Vitamins (B COMPLEX 1 PO) Take by mouth once daily (Patient not taking: Reported on 10/02/2022) ??? buPROPion SR 12hr (Wellbutrin-SR) 100 MG tablet Take 1 (one) tablet by mouth 2 times daily ??? calcitriol (Rocaltrol) 0.5 MCG capsule TAKE 1 CAPSULE BY MOUTH TWICE A DAY 60 capsule 11 ??? NHEPMKW-QWJSCKNTK-BCMH PO Take by mouth once daily ??? [START ON 10/27/2022] celecoxib (CeleBREX) 200 MG capsule Take 1 [...] daily as needed (muscle spasms) 90 tablet 0 ??? famotidine (PEPCID) 20 MG tablet Take 1 (one) tablet by mouth 2 times daily as needed ??? fish oil/omega-3 fatty acids (PROMEGA;CARDI-OMEGA 3) 1000 MG capsule Take 1 (one) capsule by mouth 3 times daily with meals ??? fluticasone propionate (FLONASE) 50 MCG/ACT nasal spray [place] 2 (two) sprays into each nostril once daily 48 g 0 ??? gabapentin (Neurontin) 300 MG capsule Take 1 (one) capsule by mouth 3 times daily 90 capsule 5 ??? LQIZOS-LASRQRMMK-AEU-C-HYAL PO Take 1 tablet by mouth 3 times daily ??? levothyroxine (Synthroid) 112 MCG tablet TAKE 1 TABLET BY MOUTH EVERY DAY 90 tablet 4 ??? lidocaine (Lidoderm) 5 % patch Apply 2 (two) patches to skin once daily Apply patch to most painful area and remove after 12 hours. May reapply a new patch 12 hours later. 60 patch 0 ??? naproxen (Naprosyn) 500 MG tablet Take 1 (one) tablet by mouth 2 times daily as needed ??? nicotine (NICODERM CQ) 14 MG/24HR patch Apply 1 (one) patch to skin once daily (Patient not taking: Reported on 09/02/2022) 30 patch 6 ??? oxybutynin CR 24hr (Ditropan-XL) 5 MG tablet Take 1 (one) tablet by mouth once daily 90 tablet 4 ??? oxyCODONE-acetaminophen (Percocet) 10-325 MG tablet Take 1 (one) tablet by mouth every 4 hours as needed 60 tablet 0 ??? pantoprazole EC (Protonix) 40 MG tablet TAKE ONE TABLET BY MOUTH ONCE DAILY FOR STOMACH 90 tablet 0 ??? PARoxetine (PAXIL) 40 MG tablet Take 1 (one) tablet by mouth once daily 2 ??? polyethylene glycol 3350 (Miralax) 17 g packet Take 17 (seventeen) g by mouth once daily as needed for Constipation 30 packet 1 ??? senna (Senokot Extra Strength) 17.2 MG Take 17.2 mg by mouth once daily 30 tablet 1 ??? traZODone (DESYREL) 50 MG tablet Take 1 (one) tablet by mouth at bedtime ??? vitamin E (TOCOPHERYL) 200 UNIT capsule Take 1 (one) capsule by mouth 3 times daily No current facility-administered medications for this visit. I reconciled the patient's medications during this visit and the above list is accurate. Allergies: Reviewed and updated in Epic Allergies Tab Review of systems: Review of Systems Constitutional: Negative for chills, fever, malaise/fatigue and weight loss. Eyes: Negative for blurred vision, double vision, photophobia and discharge. Respiratory: Negative for cough, sputum production, shortness of breath and wheezing. Cardiovascular: Negative for chest pain, orthopnea, claudication and leg swelling. Gastrointestinal: Negative for abdominal pain, diarrhea, nausea and vomiting. Genitourinary: Negative for dysuria, frequency and urgency. Musculoskeletal: Positive for myalgias and neck pain. Negative for back pain and falls. Skin: Positive for itching (around spinal incision). Neurological: Positive for weakness (L arm, chronic). Negative for dizziness, tingling, tremors, loss of consciousness and headaches. Objective: Physical Exam: There were no vitals taken for this visit.; There is no height or weight on file to calculate BMI. Physical Exam Constitutional: Comments: Well appearing female sitting up in exam chair. Sister at bedside, conversing pleasantly and appropriately HENT: Head: Normocephalic and atraumatic. Nose: Nose normal. No congestion or rhinorrhea. Mouth/Throat: Mouth: Mucous membranes are moist. Eyes: General: No scleral icterus. Conjunctiva/sclera: Conjunctivae normal. Neck: Comments: posterior spinal incision well approximated, well healing with minimal crusting at superior portion. Approximated with jess, no drainge Cardiovascular: Rate and Rhythm: Normal rate and regular rhythm. Heart sounds: No murmur heard. Pulmonary: Effort: Pulmonary effort is normal. Breath sounds: Rhonchi (upper lobes) present. No wheezing or rales. Abdominal: General: Abdomen is flat. Bowel sounds are normal. Palpations: Abdomen is soft. Tenderness: There is no abdominal tenderness. Musculoskeletal: General: No swelling or tenderness. Skin: General: Skin is warm and dry. Findings: No lesion or rash. Neurological: Mental Status: She is oriented to person, place, and time. Mental status is at baseline. Sensory: No sensory deficit. Lab Preference: [facility] [address] [phone] Samantha Ambrocio PA-C 10/21/2022 documented in this encounter Plan of Treatment Upcoming Encounters Date Type Department Care Team (Late st Contact Info) Description 07/25/2024 10:00 AM PRACTICE MANAGEMENT CONSULTANT Office Visit [facility] - Endocrinology [address] [place] [address], [place] [phone] Yosi Bustamante MD [address] [place] [address] [place] [address] 07/26/2024 10:00 AM PRACTICE MANAGEMENT CONSULTANT Appointment [facility] [place] [address] Neri Delgado MD [address] [place] [address] 07/26/2024 10:00 AM PRACTICE MANAGEMENT CONSULTANT Office Visit [facility] - ENT [address] [place] [phone] Myra Farmer, SURGICAL SCRUB TECHNOLOGIST [address] [place] [address] [place] [phone] 07/26/2024 11:15 AM PRACTICE MANAGEMENT CONSULTANT Office Visit [facility] - ENT [address] [place] [phone] Neri Delgado MD [address] [place] [address] 08/02/2024 2:20 PM PRACTICE MANAGEMENT CONSULTANT Appointment [facility] [address] [place] [address] 08/02/2024 3:00 PM PRACTICE MANAGEMENT CONSULTANT Office Visit [facility] - Hematology/Oncology [address] [place] [phone] Remi Beckett MD [address] [place] [phone] 08/18/2024 1:45 PM PRACTICE MANAGEMENT CONSULTANT Office Visit [facility] - ENT [address] [place] [phone] Neri Delgado MD [address] [place] [address] documented as of this encounter Visit Diagnoses Diagnosis Intradural extramedullary spinal tumor- Primary 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
--- OUTSIDE RECORDS SUMMARY | 2024-07-23 07:11 | XMS_ITS | Encounter Summary ---
Author Organization [facility] Address [address] [facility] [place] [address] Care Team Providers Care Machine Hostler Name Role Phone Adriana Adams DO Unavailable Joseph Manzanares MD Primary Care Provider [phone] Reason for Visit * Reason Onset Date Comments MEDICATION REFILL 10/12/2022 Encounter Details Date Type Department Care Team (Late st Contact Info) Description 10/12/2022 Telephone Transitional Care at [address] [phone] Nereida Anaya, BLOOD BANK CALENDAR CONTROL CLERK REFILL Social History Tobacco Use Types Packs/Day [...] Date Recorded PHQ2 TOTAL SCORE 0 09/02/2022 [facility] [place] of Occupat ional Health - Occupational Stress [...] st Contact Info) Description 07/25/2024 10:00 AM DATABASE ARCHITECT Office Visit [facility] - Endocrinology [address] [place] [phone] Yosi Bustamante MD [address] [place] [address] 2L [place] [address] 07/26/2024 10:00 AM DATABASE ARCHITECT Appointment [facility] [address] [place] [phone] Neri Delgado MD [address] [place] [address] 07/26/2024 10:00 AM DATABASE ARCHITECT Office Visit [facility] - ENT [address] [place] [phone] Myra Farmer, LATIN TEACHER [address] [place] [address] 2L [place] [phone] 07/26/2024 11:15 AM DATABASE ARCHITECT Office Visit [facility] - ENT [address] [place] [phone] Neri Delgado MD [address] [place] [address] 08/02/2024 2:20 PM DATABASE ARCHITECT Appointment [facility] [address] [place] [address] 08/02/2024 3:00 PM DATABASE ARCHITECT Office Visit [facility] - Hematology/Oncology [address] [place] [phone] Remi Beckett MD [address] [place] [phone] 08/18/2024 1:45 PM DATABASE ARCHITECT Office Visit [facility] - ENT [address] [place] [phone] Neri Delgado MD [address] [place] [address] documented as of this encounter 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
--- OUTSIDE RECORDS SUMMARY | 2024-07-23 07:11 | XMS_ITS | Encounter Summary ---
Author Organization [facility] Health Address [address] [place] [address] Care Team Providers Care Retail Loss Prevention Specialist Name Role Phone Adriana Adams DO Unavailable Joseph Manzanares MD Primary Care Provider Reason for Visit * Auth/Cert (Routine) Specialty Diagnoses / Procedures Referred By Contricardo t Referred To Contact Referral ID Status Reason Start Date Expiration Date Visits Re quested Visits Authorized [id number] 1 1 Encounter Details Date Type Department Care Team (Late st Contact Info) Description 10/15/2022 Home Care Visit [facility] [address] [place] [address] Rocio Ignacio, RN CASE COMMUNICATION Social History Tobacco Use Types [...] Date Recorded PHQ2 TOTAL SCORE 0 09/02/2022 [facility] of Occupat ional Health - Occupational Stress [...] Contact Info) Description 07/25/2024 10:00 AM LICENSED PSYCHIATRIC TECHNICIAN Office Visit [facility] - Endocrinology [address] [place] [phone] Yosi Bustamante MD [address] [place] [address] 2L [place] [address] 07/26/2024 10:00 AM LICENSED PSYCHIATRIC TECHNICIAN Appointment [facility] RAD [address] [place] [address] Neri Delgado MD [address] [place] [address] 07/26/2024 10:00 AM LICENSED PSYCHIATRIC TECHNICIAN Office Visit [facility] - ENT [address] [place] [phone] Myra Farmer, METROLOGIST [address] [place] [address] 2L [place] [phone] 07/26/2024 11:15 AM LICENSED PSYCHIATRIC TECHNICIAN Office Visit [facility] - ENT [address] [place] [phone] Neri Delgado MD [address] [place] [address] 08/02/2024 2:20 PM LICENSED PSYCHIATRIC TECHNICIAN Appointment [facility] [address] [place] [address] 08/02/2024 3:00 PM LICENSED PSYCHIATRIC TECHNICIAN Office Visit [facility] - Hematology/Oncology [facility] [place] [phone] [place] [address] [place] [phone] 08/18/2024 1:45 PM LICENSED PSYCHIATRIC TECHNICIAN Office Visit [facility] - ENT [address] [place] [address] Neri Delgado MD [address]25 [place] [address] documented as of this encounter Visit Diagnoses Not on filedocumented in this encounter Home Health Visit - Care Plan Visit Details Visit Type -Case Communicati on Discipline -Shared Problems Problem Description Start Date [...] Scheduled documented in this encounter Care Teams Retail Loss Prevention Specialist Relationship Specialty Start Date End Date Joseph Manzanares MD [address] [place] [phone] PCP - General Internal Medicine 10/07/22 04/20/23 Adriana Adams DO [address] [place] [phone] Resident - PCP Internal Medicine 04/06/22 01/12/23 documented as of this encounter
--- OUTSIDE RECORDS SUMMARY | 2024-07-23 07:11 | XMS_ITS | Encounter Summary ---
Author Organization [facility] Health Address [address] [place] [address] Care Team Providers Care Asset Protection Professional Name Role Phone Adriana Adams DO Unavailable Joseph Manzanares MD Primary Care Provider [phone] Reason for Visit * Auth/Cert (Routine) Specialty Diagnoses / Procedures Referred By Contricardo t Referred To Contact Referral ID Status Reason Start Date Expiration Date Visits Re quested Visits Authorized [id number] 1 1 Encounter Details Date Type Department Care Team (Late st Contact Info) Description 10/15/2022 Home Care Visit [facility] [address] [place] [address] Waleska White, PT CASE COMMUNICATION Social History Tobacco Use [...] Date Recorded PHQ2 TOTAL SCORE 0 09/02/2022 [facility] of Occupat ional Health [...] Contact Info) Description 07/25/2024 10:00 AM TAX COMPLIANCE OFFICER [facility] End[facility] [address] [place] [phone] Yosi Bustamante MD [address] [place] [address] 2L [place] [address] 07/26/2024 10:00 AM TAX COMPLIANCE OFFICER Appointment [facility] DIAGNO[facility]IC RAD [address] [place] [address] Neri Delgado MD [address] [place] [address] 07/26/2024 10:00 AM TAX COMPLIANCE OFFICER [facility] ENT [address] [place] [phone] Myra Farmer, DEER FARMER [address] [place] [address] 2L [place] [phone] 07/26/2024 11:15 AM TAX COMPLIANCE OFFICER [facility] [address] [place] [phone] Neri Delgado MD [address] [place] [address] 08/02/2024 2:20 PM TAX COMPLIANCE OFFICER Appointment [facility] [address] [place] [address] 08/02/2024 3:00 PM TAX COMPLIANCE OFFICER Office Visit [facility] - Hematology/Oncology [address] [place] [phone] [place] [address] [place] [phone] 08/18/2024 1:45 PM TAX COMPLIANCE OFFICER Office Visit [facility] - ENT [address] [place] [address] Neri Delgado MD [address] [place] [address] documented as of this encounter Visit Diagnoses [...] Scheduled documented in this encounter Care Teams Asset Protection Professional Relationship Specialty Start Date End Date Joseph Manzanares MD [address] [place] [phone] PCP - General Internal Medicine 10/07/22 04/20/23 Adriana Adams DO [address] [place] [phone] Resident - PCP Internal Medicine 04/06/22 01/12/23 documented as of this encounter
--- OUTSIDE RECORDS SUMMARY | 2024-07-23 07:11 | XMS_ITS | Encounter Summary ---
Author Organization [facility] Health Address [address] [place] [address] Care Team Providers Care Electrical Logging Engineer Name Role Phone Adriana Adams DO Unavailable Joseph Manzanares MD Primary Care Provider [phone] Reason for Visit * Reason Onset Date Comments Courtesy Visit 10/15/2022 Tuck in call att empted Encounter Details Date Type Department Care Team (Late st Contact Info) Description 10/15/2022 Telephone [facility] Scheduling [address] [place] [address] Emily Montaño Courtesy Visit (Tuck in call attempted) Social History Tobacco Use Types Packs/Day Years [...] Date Recorded PHQ2 TOTAL SCORE 0 09/02/2022 [facility] [place] of Occupat ional Health - Occupational Stress [...] encounter Miscellaneous Notes * Telephone Encounter - Emily Montaño - 10/15/2022 10:45 AM CDT Robertck in call attempted. Called home number - reached patient's who stated patient was sleeping. was not at SOC visit and unable to provide answers to follow up questions. Time permitting, office to call back later. documented in this encounter Plan of Treatment Upcoming Encounters Date Type Department Care Team (Late st Contact Info) Description 07/25/2024 10:00 AM CERTIFIED REGISTERED NURSE PRACTITIONER Office Visit [facility] - Endocrinology [address] [place] [phone] Yosi Bustamante MD [address] [place] [address] 2L [place] [address] 07/26/2024 10:00 AM CERTIFIED REGISTERED NURSE PRACTITIONER Appointment [facility] [address] [place] [address] Neri Delgado MD [address] [place] [address] 07/26/2024 10:00 AM CERTIFIED REGISTERED NURSE PRACTITIONER Office Visit [facility] - ENT [address] [place] [phone] Myra Farmer, ZAIN [address] [place] [address] 2L [place] [address] 07/26/2024 11:15 AM CERTIFIED REGISTERED NURSE PRACTITIONER Office Visit [facility] [address] [place] [phone] Neri Delgado MD [address] [place] [address] 08/02/2024 2:20 PM CERTIFIED REGISTERED NURSE PRACTITIONER Appointment [facility] [address] [place] [address] 08/02/2024 3:00 PM CERTIFIED REGISTERED NURSE PRACTITIONER Office Visit [facility] - Hematology/Oncology [address] [place] [phone] Remi Beckett MD [address] [place] [phone] 08/18/2024 1:45 PM CERTIFIED REGISTERED NURSE PRACTITIONER Office Visit [facility] - ENT [address] [place] [phone] Neri Delgado MD [address] [place] [address] documented as of this encounter Visit Diagnoses Not on filedocumented in this encounter Care Teams Electrical Logging Engineer Relationship Specialty Start Date End Date Joseph Manzanares MD [address] [place] [phone] PCP - General Internal Medicine 10/07/22 04/20/23 Adriana Adams DO [address] [place] [phone] Resident - PCP Internal Medicine 04/06/22 01/12/23 documented as of this encounter
--- OUTSIDE RECORDS SUMMARY | 2024-07-23 07:11 | XMS_ITS | Encounter Summary ---
Author Organization [facility] Health Address [address] [place] [address] Care Team Providers Care Bone Grinder Name Role Phone Adriana Adams DO Unavailable Joseph Manzanares MD Primary Care Provider [phone] Encounter Details Date Type Department Care Team (Latest Contact Info) Description 10/14/2022 Travel Social History Tobacco Use Types Packs/Day [...] Date Recorded PHQ2 TOTAL SCORE 0 09/02/2022 [facility] of Occupat ional Health - Occupational Stress [...] st Contact Info) Description 07/25/2024 10:00 AM ENGINEERING OFFICER Office Visit [facility] - Endocrinology [address] [place] [address] Yosi Bustamante MD [address] [place] [address] 2L [place] [address] 07/26/2024 10:00 AM ENGINEERING OFFICER Appointment [facility] RAD [address] [place] [address] Neri Delgado MD [address] [place] [address] 07/26/2024 10:00 AM ENGINEERING OFFICER Office Visit [facility] - ENT [address] [place] [phone] Myra Farmer, DIRECTOR BUSINESS INTEGRATION [address] [place] [address] 2L [place] [address] 07/26/2024 11:15 AM ENGINEERING OFFICER Office Visit [facility] [address] [place] [phone] Neir Delgado MD [address] [place] [address] 08/02/2024 2:20 PM ENGINEERING OFFICER Appointment [facility] [address] [place] [address] 08/02/2024 3:00 PM ENGINEERING OFFICER Office Visit [facility] - Hematology/Oncology [address] [place] [phone] Remi Beckett MD [address] [place] [phone] 08/18/2024 1:45 PM ENGINEERING OFFICER Office Visit [facility] ENT [address] [place] [phone] Neri Delgado MD [address] [place] [address] documented as of this encounter Visit Diagnoses Not on filedocumented in this encounter Care Teams Bone Grinder Relationship Specialty Start Date End Date Joseph Manzanares MD [address] [place] [phone] PCP - General Internal Medicine 10/07/22 04/20/23 Adriana Adams DO [address] [place] [phone] Resident - PCP Internal Medicine 04/06/22 01/12/23 documented as of this encounter
--- OUTSIDE RECORDS SUMMARY | 2024-07-23 07:11 | XMS_ITS | Encounter Summary ---
Author Organization [facility] Health Address [address] [facility] [place] [address] Care Team Providers Care Account Executive Software Sales Name Role Phone Adriana Adams DO Unavailable Joseph Manzanares MD Primary Care Provider [phone] Reason for Visit * Reason Onset Date Comments Home Health 10/07/2022 Encounter Details Date Type Department Care Team (Late st Contact Info) Description 10/07/2022 Telephone [facility] General Internal Medicine [address] [place] [address], [place] [address] Taniya Grimes MD [address] [place] [address] OF [facility] [place] [address] Home Health Social History Tobacco Use Types Packs/Day Years [...] Date Recorded PHQ2 TOTAL SCORE 0 09/02/2022 [facility] [place] of Occupat ional Health - Occupational Stress [...] Telephone Encounter - Esther Branch RN - 10/07/2022 3:10 PM CDT Images from the original note were not included. Called Bina and relayed message: Joseph Manzanares MD You; RizwanaJustin galvezy, DO 5 minutes ago (3:04 PM) [place] That's fine, will follow * Telephone Encounter - Esther Branch RN - 10/07/2022 2:47 PM CDT Bina with [facility] Home health calling asking the PCP/Dr. Manzanares to follow home health orders-PT/OT services are ordered at this time. Pt was discharged from [facility] today. Has the F2F documentation. Please advise. CB: [phone] documented in this encounter Plan of Treatment Upcoming Encounters Date Type Department Care Team (Late st Contact Info) Description 07/25/2024 10:00 AM RN BSN Office Visit [facility] - Endocrinology [address] [place] [phone] Yosi Bustamante MD [address] [place] [address] 2L [place] [address] 07/26/2024 10:00 AM RN BSN Appointment [facility] DIAGNOSTIC RAD [address] [place] [phone] Neri Delgado MD [address] [place] [address] 07/26/2024 10:00 AM RN BSN Office Visit [facility] - ENT [address] [place] [phone] Myra Farmer, RN BEHAVIORAL HEALTH [address] [place] [address] 2L [place] [address] 07/26/2024 11:15 AM RN BSN Office Visit [facility] ENT [address] [place] [phone] Neri Delgado MD [address] [place] [address] 08/02/2024 2:20 PM RN BSN Appointment [facility] CENTER [address] [place] [address] 08/02/2024 3:00 PM RN BSN Office Visit [facility] - Hematology/Oncology [address] [place] [phone] Remi Beckett MD [address] [place] [phone] 08/18/2024 1:45 PM RN BSN Office Visit [facility] - ENT [address] [place] [phone] Neri Delgado MD [address] [place] [address] documented as of this encounter Visit Diagnoses Not on filedocumented in this encounter Care Teams Account Executive Software Sales Relationship Specialty Start Date End Date Joseph Manzanares MD [address] [place] [phone] PCP - General Internal Medicine 10/07/22 04/20/23 Adriana Adams DO [address] [place] [phone] Resident - PCP Internal Medicine 04/06/22 01/12/23 documented as of this encounter
--- OUTSIDE RECORDS SUMMARY | 2024-07-23 07:11 | XMS_ITS | Encounter Summary ---
Author Organization [facility] Health Address [address] [place] [address] Care Team Providers Care Eyeglass Assembler Name Role Phone Adriana Adams DO Unavailable Joseph Manzanares MD Primary Care Provider [phone] Encounter Details Date Type Department Care Team (Latest Contact Info) Description 10/20/2022 Travel Social History Tobacco Use Types Packs/Day [...] Date Recorded PHQ2 TOTAL SCORE 0 09/02/2022 [facility] [place] of Occupat ional Health - Occupational Stress [...] st Contact Info) Description 07/25/2024 10:00 AM GERIATRIC PSYCHIATRIST Office Visit [facility] - Endocrinology [address] [place] [address] Yosi Bustamante MD [address] [place] [address] 2L Div [place] [address] 07/26/2024 10:00 AM GERIATRIC PSYCHIATRIST Appointment [facility] DI[facility] RAD [address] [place] [address] Neri Delgado MD [address] [place] [address] 07/26/2024 10:00 AM GERIATRIC PSYCHIATRIST Office Visit [facility] - ENT [address] [place] [phone] Myra Farmer, SUGAR TRUCKER [address] [place] [address] 2L [place] [phone] 07/26/2024 11:15 AM GERIATRIC PSYCHIATRIST Office Visit [facility] - ENT [address] [place] [phone] Neri Delgado MD [address] [place] [address] 08/02/2024 2:20 PM GERIATRIC PSYCHIATRIST Appointment [facility] [address] [place] [address] 08/02/2024 3:00 PM GERIATRIC PSYCHIATRIST Office Visit [facility] - Hematology/Oncology [address] [place] [phone] Remi Beckett MD [address] [place] [phone] 08/18/2024 1:45 PM GERIATRIC PSYCHIATRIST Office Visit [facility] - ENT [address] [place] [phone] Neri Delgado MD [address] [place] [address] documented as of this encounter Visit Diagnoses Not on filedocumented in this encounter Care Teams Eyeglass Assembler Relationship Specialty Start Date End Date Joseph Manzanares MD [address] [place] [phone] PCP - General Internal Medicine 10/07/22 04/20/23 Adriana Adams DO [address] [place] [phone] Resident - PCP Internal Medicine 04/06/22 01/12/23 documented as of this encounter
--- OUTSIDE RECORDS SUMMARY | 2024-07-23 07:12 | XMS_ITS | Encounter Summary ---
Author Organization [facility] Health Address [address] [facility] [place] [address] Care Team Providers Care Team Primary Care Physician Name Role Phone Adriana Adams DO Unavailable Taniya Grimes MD Primary Care Provider Reason for Visit * Reason Onset Date Comments ABN Follow-Up 08/25/2022 REVIEWED THE MRI FINDINGS AND WBS FINDINGS INFORMED PATIENT OF REFERRALS TO RADIATION ONCOLOGY AND NEUROSURGERY Encounter Details Date Type Department Care Team (Late st Contact Info) Description 08/25/2022 Telephone [facility] Endocrinology, Diabetes and Metabolism [address] [place] [address], [facility] [place] [address] Yosi Bustamante MD [address] [place] [address] [place] [address] ABN Follow-Up (REVIEWED THE MRI FINDINGS AND WBS FINDINGS /INFORMED PATIENT OF REFERRALS TO RADIATION ONCOLOGY AND NEUROSURGERY ) Social History Tobacco Use Types Packs/Day Years Used Date Smoking Tobacco: Heavy Smoker Cigarettes 0.5 51 Started: 07/22/1973 Smokeless Tobacco: Never Alcohol Use Standard Drinks/Week Comments No 0 (1 standard drink = 0.6 oz pur e alcohol) PHQ-2 Answer Date Recorded PHQ2 TOTAL SCORE 0 08/12/2022 Sex and Gender Information Value Date Recorded Sex Assigned at Not on file Gender Identity Not on file Sexual Orientation Not on file documented as of this encounter Functional Status Functional Status Response Date of Assess ment Is person deaf or have serious hearing difficult y? No 02/05/2022 Is person blind or have serious difficulty seein g? No 02/05/2022 Does person have serious dif ficulty walking/climbing stairs? Yes 02/05/2022 Does person have difficulty dressing/bathing? No 02/05/2022 Does person have difficulty doing errands alone? Yes 02/05/2022 Cognitive Status Response Date of Assessm ent Does person have difficulty concentrating/remembering/making decisions? No 02/05/2022 documented as of this encounter Miscellaneous Notes * Telephone Encounter - Yosi Bustamante MD - 08/25/2022 9:47 AM DIRECT MAIL COORDINATOR ----- Message from Mela Snell MD sent at 08/24/2022 3:04 PM DIRECT MAIL COORDINATOR ----- Hi Dr. Bustamante, I am reading Ms Hogan's MRI cervical spine. I wanted to bring the findings to your attention in case you have not had a chance to review the images. 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 This results in moderate spinal canal stenosis with cord compression at these levels but no cord edema. This correlates with the WB Thyroid scan findings. Please let me know if I can add anything else. Thanks Mela CT MAIL COORDINATOR documented in this encounter Plan of Treatment Upcoming Encounters Date Type Department Care Team (Late st Contact Info) Description 07/25/2024 10:00 AM DIRECT MAIL COORDINATOR Office Visit [facility] - Endocrinology [address] [place] [address], [place] [phone] Yosi Bustamante MD [address] [place] [address] [place] [address] 07/26/2024 10:00 AM DIRECT MAIL COORDINATOR Appointment [facility]IC RAD [address] [place] [phone] Neri Delgado MD [address] [place] [address] 07/26/2024 10:00 AM DIRECT MAIL COORDINATOR Office Visit [facility] - ENT [address] [place] [phone] Myra Farmer, DRUG AND ALCOHOL TREATMENT SPECIALIST [address] [place] [address] 2L [place] [phone] 07/26/2024 11:15 AM DIRECT MAIL COORDINATOR Office Visit [facility] - ENT [address] [place] [phone] Neri Delgado MD [address] [place] [address] 08/02/2024 2:20 PM DIRECT MAIL COORDINATOR Appointment [facility] [address] [place] [address] 08/02/2024 3:00 PM DIRECT MAIL COORDINATOR Office Visit [facility] - Hematology/Oncology [address] [place] [phone] Remi Beckett MD [address] [place] [phone] 08/18/2024 1:45 PM DIRECT MAIL COORDINATOR Office Visit [facility] - ENT [address] [place] [phone] Neri Delgado MD [address] [place] [address] documented as of this encounter Visit Diagnoses Not on filedocumented in this encounter Care Teams Team Primary Care Physician Relationship Specialty Start Date End Date Taniya Grimes MD [address] [place] [address] 2L DIV [place] [phone] PCP - General 07/15/22 10/06/22 Adriana Adams DO [facility] [place] [phone] Resident - PCP Internal Medicine 04/06/22 01/12/23 documented as of this encounter
--- OUTSIDE RECORDS SUMMARY | 2024-07-23 07:12 | XMS_ITS | Encounter Summary ---
Author Organization [facility] Health Address [address] [facility] [place] [address] Care Team Providers Care Bilingual Patient Support Caseworker Name Role Phone Adriana Adams DO Unavailable Taniya Grimes MD Primary Care Provider Encounter Details Date Type Department Care Team (Latest Contact Info) Description 09/14/2022 Travel Social History Tobacco Use Types Packs/Day Years Used Date Smoking Tobacco: Heavy Smoker Cigarettes 0.3 51 Started: 07/22/1973 Smokeless Tobacco: Never Comments:1-2 cigarettes per day current smoker Alcohol Use Standard Drinks/Week Comments No 0 (1 standard drink = 0.6 oz pur e alcohol) PHQ-2 Answer Date Recorded PHQ2 TOTAL SCORE 0 09/02/2022 Sex and Gender Information Value Date Recorded Sex Assigned at Not on file Gender Identity Not on file Sexual Orientation Not on file COVID-19 Exposure Response Date Recorded In the last 10 days, have yo u been in contact with someone who was confirmed or suspected to have Coronavirus/COVID-19? No / Unsure 09/02/2022 2:14 PM FOREIGN CAR MECHANIC documented as of this encounter Functional Status [...] No 02/05/2022 documented as of this encounter Plan of Treatment Upcoming Encounters Date Type Department Care Team (Late st Contact Info) Description 07/25/2024 10:00 AM FOREIGN CAR MECHANIC Office Visit [facility] - Endocrinology [address] [place] [phone] Yosi Bustamante MD [address] [place] [address] 2L [place] [address] 07/26/2024 10:00 AM FOREIGN CAR MECHANIC Appointment [facility] DIAGNOSTIC RAD [address] [place] [address] Neri Delgado MD [address] [place] [address] 07/26/2024 10:00 AM FOREIGN CAR MECHANIC Office Visit [facility] - ENT [address] [place] [phone] Myra Farmer, [place] MANAGER [address] [place] [address] 2L [place] [phone] 07/26/2024 11:15 AM FOREIGN CAR MECHANIC Office Visit [facility] - ENT [address] [place] [phone] Neri Delgado MD [address] [place] [address] 08/02/2024 2:20 PM FOREIGN CAR MECHANIC Appointment [facility] [address] [place] [address] 08/02/2024 3:00 PM FOREIGN CAR MECHANIC Office Visit [facility] Physician Group - Hematology/Oncology [address] [place] [phone] Remi Beckett MD [address] [place] [phone] 08/18/2024 1:45 PM FOREIGN CAR MECHANIC Office Visit [facility] - [facility]NT [address] [place] [phone] Neri Delgado MD [address] [place] [address] documented as of this encounter Visit Diagnoses Not on filedocumented in this encounter Care Teams Bilingual Patient Support Caseworker Relationship Specialty Start Date End Date Taniya Grimes MD [address] [place] [address] OF [facility] [place] [phone] PCP - General 07/15/22 10/06/22 Adriana Adams DO [address] [place] [phone] Resident - PCP Internal Medicine 04/06/22 01/12/23 documented as of this encounter
--- OUTSIDE RECORDS SUMMARY | 2024-07-23 07:12 | XMS_ITS | Encounter Summary ---
Author Organization [facility] Health Address [address] [facility] [place] [address] Care Team Providers Care Security Guard Dispatcher Name Role Phone Adriana Adams DO Unavailable Taniya Grimes MD Primary Care Provider Encounter Details Date Type Department Care Team (Latest Contact Info) Description 09/14/2022 3:05 PM CDT Hospital Encounter [facility] DIAGNOSTIC RAD CSM [address]L [address] [facility] [place] [address] Coy Gómez MD [address] [facility] 2L DIV OF NEUROSURGERY [place], [place] [phone] Discharge Disposition: Home or Self Care Social [...] Coronavirus/COVID-19? No / Unsure 09/02/2022 2:14 PM FELTING MACHINE OPERATOR HELPER documented as of this encounter Functional Status [...] No 02/05/2022 documented as of this encounter Medications at Time of Discharge Medication Sig Dispensed Refills Start Date End Date buPROPion SR 12hr (Wellbutrin-SR) 100 MG tablet Take 1 (one) tablet by mouth 2 times daily 08/28/2022 celecoxib (CeleBREX) 200 MG capsuleIndications:Nicole stahl osteoarthritis [...] Reasons: Pain 06/13/2023 atorvastatin (Lipitor) 40 MG tabletIndications:Hype rlipidemia, unspecified hyperlipidemia type TAKE 1 TABLET BY MOUTH EVERYDAY AT BEDTIME 30 tablet 3 05/14/2022 02/16/2023 B Complex Vitamins (B COMPLEX 1 PO) Take by mouth once daily 12/24/2022 calcitriol (Rocaltrol) 0.5 MCG capsuleIndications:Pos toperative hypothyroidism,Thyroid cancer (HCC),Hypocalcemia TAKE 1 CAPSULE BY MOUTH TWICE A DAY 60 capsule 11 02/22/2022 05/28/2023 [id number] PO Take by mouth once daily 06/13/2023 celecoxib (CELEBREX) 200 MG capsuleIndications:Nicole stahl osteoarthritis of left hip Take 1 (one) capsule by mouth once daily 90 capsule 3 01/19/2022 10/06/2022 cetirizine (ZYRTEC) 10 MG tabletIndications:Barron rgic rhinitis, [...] fluticasone propionate (FLONASE) 50 MCG/ACT nasal spray Morton 2 (two) sprays into each nostril once daily 48 g 10/20/2021 11/25/2022 gabapentin (Neurontin) 300 MG capsuleIndications:Nicole favio osteoarthritis of left hip Take 1 (one) capsule by mouth 3 times daily 90 capsule 5 04/06/2022 11/19/2022 [id number]-[id number]-NMX-C -HYAL PO Take 1 tablet by mouth [...] 2 times daily as needed 10/06/2022 10/21/2022 naproxen (Naprosyn) 500 MG tablet Take 1 (one) tablet by mouth 2 times daily as needed 07/17/2022 10/06/2022 nicotine (NICODERM CQ) 14 MG/24HR patchIndications:Tobac co [...] st Contact Info) Description 07/25/2024 10:00 AM FELTING MACHINE OPERATOR HELPER Office Visit [facility] - Endocrinology [address] [place] [phone] Yosi Bustamante MD [address] [place] [address] 2L [place] [address] 07/26/2024 10:00 AM FELTING MACHINE OPERATOR HELPER Appointment [facility] DIAGNOSTIC RAD [address] [place] [phone] Neri Delgado MD [address] [place] [address] 07/26/2024 10:00 AM FELTING MACHINE OPERATOR HELPER Office Visit [facility] - ENT [address] [place] [phone] Myra Farmer, PATENT CLERK [address] [place] [address] 2L [place] [phone] 07/26/2024 11:15 AM FELTING MACHINE OPERATOR HELPER [facility] Visit [facility] - ENT [address] [place] [phone] Neri Delgado MD [address] [place] [address] 08/02/2024 2:20 PM FELTING MACHINE OPERATOR HELPER Appointment [facility] [address] [place] [address] 08/02/2024 3:00 PM FELTING MACHINE OPERATOR HELPER Office Visit [facility] Physician Group - Hematology/Oncology [address] [place] [phone] Remi Beckett MD [address] [place] [phone] 08/18/2024 1:45 PM FELTING MACHINE OPERATOR HELPER [facility] - ENT [address] [place] [phone] Nrei Delgado MD [address] [place] [address] documented as of this encounter Visit Diagnoses Not on filedocumented in this encounter Care Teams Security Guard Dispatcher Relationship Specialty Start Date End Date Taniya Grimes MD [address] [place] [address] 2L DIV OF GEN [place] [phone] PCP - General 07/15/22 10/06/22 Adriana Adams DO [address] [place] [phone] Resident - PCP Internal Medicine 04/06/22 01/12/23 documented as of this encounter
--- OUTSIDE RECORDS SUMMARY | 2024-07-23 07:12 | XMS_ITS | Encounter Summary ---
Author Organization [facility] Health Address [address] [facility] [place] [address] Care Team Providers Care Home Health Caregiver Name Role Phone Adriana Adams DO Unavailable Taniya Grimes MD Primary Care Provider Reason for Visit * Radiology Services (Routine) - Closed Specialty Diagnoses / Procedures Referred By Yuan t Referred To Contact CT Scan Diagnoses Rotator cuff arthropathy of left shoulder Pre-op testing Procedures CT CUSTOM SHOULDER LT REPLACEMENT Mary Beth Lauren MD [address] [facility] [address] [place] [address] [facility] [address] [place] [address] Referral ID Status Reason Start Date Expiration Date Visits Re quested Visits Authorized [id number] Closed 09/23/2022 09/23/2023 1 1 Encounter Details Date Type Department Care Team (Latest Contact Info) Description 09/25/2022 11:35 AM CDT - 09/25/2022 11:59 PM CDT Hospital Encounter [facility] CAT SCAN [address] [place] [address] Mary Beth Lauren MD [address] [facility] [address] [place] [address] Discharge Disposition: Home or Self Care [...] Coronavirus/COVID-19? No / Unsure 09/02/2022 2:14 PM ACTIVITIES OFFICER documented as of this encounter Functional Status [...] A DAY 60 capsule 11 02/22/2022 05/28/2023 [id number] PO Take by mouth once daily 06/13/2023 [...] fluticasone propionate (FLONASE) 50 MCG/ACT nasal spray Advance 2 (two) sprays into each nostril once daily 48 g 10/20/2021 11/25/2022 gabapentin (Neurontin) 300 MG capsuleIndications:Nicole stahl osteoarthritis of left hip Take 1 (one) capsule by mouth 3 times daily 90 capsule 5 04/06/2022 11/19/2022 [id number]-[id number]-XUM-C -HYAL PO Take 1 tablet by mouth [...] st Contact Info) Description 07/25/2024 10:00 AM ACTIVITIES OFFICER Office Visit [facility] - Endocrinology [address] [place] [address], [place] [address] Yosi Bustamante MD [address] [place] [address] [place] [address] 07/26/2024 10:00 AM ACTIVITIES OFFICER Appointment [facility] DIAGNOSTIC RAD [address] [place] [phone] Neri Delgado MD [address] [place] [address] 07/26/2024 10:00 AM ACTIVITIES OFFICER Office Visit [facility] - ENT [address] [place] [phone] Myra Farmer, MOTORCYCLE DESIGNER [address] [place] [address] [place] [phone] 07/26/2024 11:15 AM ACTIVITIES OFFICER Office Visit [facility] Physician Group - ENT [address] [place] [phone] Neri Delgado MD [address] [place] [address] 08/02/2024 2:20 PM ACTIVITIES OFFICER Appointment [facility] IN[facility]ION CENTER [address] [place] [address] 08/02/2024 3:00 PM ACTIVITIES OFFICER Office Visit [facility] Physician Group - Hematology/Oncology [address] [place] [phone] Remi Beckett MD [address] [place] [phone] 08/18/2024 1:45 PM ACTIVITIES OFFICER Office Visit [facility] - [facility]NT [address] [place] [phone] Neri Delgado MD [address] [place] [address] documented as of this encounter Procedures Procedure Name Priority Date/Time Associated Diagnosis Comments CT CUSTOM SHOULDER LT REPLCMNT Routine 09/25/2022 11:47 AM CDT Rotator cuff arthropathy of left shoulder Pre-op testing documented in this encounter Results * CT CUSTOM SHOULDER LT REPLACEMENT (09/25/2022 11:47 AM CDT) Anatomical Region Laterality Modality Upper Extremity Computed Tomogra phy 09/25/2022 2:53 PM CDT Narrative 09/26/2022 10:35 AM CDT PROCEDURE: ??CT CUSTOM SHOULDER LT REPLACEMENT, DATE/TIME OF EXAM: 09/25/2022 11:48 AM, LOCATION ??[facility] INDICATION: M12.812: Rotator cuff arthropathy [...] Report dictated by [place] Carbajal MD (radiology interventional physician) IZi MD have personally reviewed and interpreted this examination/study. > Interpreting Provider: Zi Vee MD on 09/26/2022 10:35 AM Procedure Note Zi Vee MD - 09/26/2022 PROCEDURE: CT CUSTOM SHOULDER LT REPLACEMENT, DATE/TIME OF EXAM: 09/25/2022 11:48 AM, LOCATION [facility] INDICATION: M12.812: Rotator cuff arthropathy [...] Report dictated by [place] Carbajal MD (radiology interventional physician) I, Zi Vee MD have personally reviewed and interpreted this examination/study. > Interpreting Provider: Zi Vee MD on 0:35 AM Mary Beth Lauren MD CT ORDERABLES documented in this encounter Visit Diagnoses Diagnosis Rotator cuff arthropathy of left shoulder Pre-op testing Preoperative examination, unspecified documented in this encounter Care Teams Home Health Caregiver Relationship Specialty Start Date End Date Taniya Grimes MD [address] [place] [phone] PCP - General 07/15/22 10/06/22 Adriana Adams DO [address] [place] [phone] Resident - PCP Internal Medicine 04/06/22 01/12/23 documented as of this encounter
--- OUTSIDE RECORDS SUMMARY | 2024-07-23 07:12 | XMS_ITS | Encounter Summary ---
Author Organization [facility] Health Address [address] [place] [address] Care Team Providers Care Vinyl Top Installer Name Role Phone Adriana Adams DO Unavailable Taniya Grimes MD Primary Care Provider [phone] Encounter Details Date Type Department Care Team (Latest Contact Info) Description 09/14/2022 2:00 PM CDT - 09/14/2022 2:17 PM CDT Hospital Encounter [facility] PAT [address] [place] [address] Coy Gómez MD [address] [facility] 2L [place] [address] Discharge Disposition: Home or Self Care Anesthesia Record Procedure Summary Procedure Name Responsible Anesthesiologist Anesthesia Start Time Anesthesia Stop Time C2-T2 fusion and decompression C3-C7 and resection extramedullary spine tumor Maryjane Chapman MD 10/02/22 0727 10/02/22 1129 Events Date Time Event Comment 10/02/2022 0711 0727 An Start 0727 Pt In Room 0727 An Start Data 0729 PT Reassessment 0729 Induction 0735 An Intubation 0738 Insert Art Line 0751 Echola Pins Applied 0756 Pt Repositioned 0822 Anes Ready 0822 Time Out Anesthesia part icipated in timeout at the time documented in the record by nursing 0822 Proc Start 1116 Proc Stop 1118 An Emergence 1123 Extubation 1124 an stop data 1126 Pt out of Room 1126 ANPTO2 1129 An Stop Meds * Agents No agents on file. * Blood No blood administrations on file. Lines, Drains, and Airways Type Details Placement Removal Peripheral IV Date: 10/02/22; Time : 0645; Orientation: Posterior, Right; Placed By: Anaya Boo RN; Tolerance: Well 10/02/22 0645 by Taylor Decker RN 10/06/22 1032 by Felicity Kwan RN ETT Date: 10/02/22; Time : 0735; Placed By: Maryjane Chapman MD; Vent: easy mask; Induction: Standard IV; Blade Type: Rosita; Blade Size: 3; Laryngoscopy View: Grade 1 (full cords); Intubation Adjuncts: Stylet; Tube: Endotracheal Tube; Placement: Oral; Tube Type: Cuffed-inflated; Tube Size(mm): 6.5 MM; Depth of Insertion: 22 CM; Measured From: teeth; Attempts: 1; Cuff Infated: Air; Verified By: Direct visualization, Bilateral breath sounds, Chest Auscultation, CO2 Monitor 10/02/22 0735 by Ioana Reddy MD 10/02/22 1123 by Ioana Reddy MD Arterial Line Date: 10/02/22; Time : 0738; Placed By: Ioana Reddy MD; Location: radial; Orientation: Left; Gauge: 20; Anesthetic Used: No; Line Secured: Taped; Tolerance: General Anesthesia 10/02/22 0738 by Ioana Reddy MD 10/02/22 1216 by Geeta Fraire RN Peripheral IV Date: 10/02/22; Time : 0742; Orientation: Left; Placed By: Ioana Reddy MD; Tolerance: General Anesthesia 10/02/22 0742 by Ioana Reddy MD 10/06/22 1110 by Lexii Comer RN Urethral Catheter 10/02/22; 0745; Gaby Crum RN; Non-latex, Temperature probe; 16; 10 mL; Yes, Seal Intact; 1; General Anesthesia; 10/02/22; 1140; Per protocol 10/02/22 0745 by Juliette Crum RN 10/02/22 1140 by Geeta Fraire RN Procedural Site (Incision) 10/02/22; 0906; Back; 10/07/22; 18110/02/22 0906 by Juliette Crum RN 10/07/22 1812 by Generic, Auto Release Drain 10/02/22; 1027; Dr Gómez; 1; Round; Accordian; 15fr; Back; General Anesthesia; 10/05/22; 1104 10/02/22 1027 by Juliette Crum RN 10/05/22 1104 by Pravin Dennis RN documented in this encounter Social History Tobacco Use Types Packs/Day Years Used Date Smoking Tobacco: Heavy Smoker Cigarettes 0.3 51 Started: 07/22/1973 Smokeless Tobacco: Never Tobacco Cessation:Ready to Q uit: Not Asked; [...] Coronavirus/COVID-19? No / Unsure 09/02/2022 2:14 PM SHEET METAL ASSEMBLER documented as of this encounter Functional Status [...] A DAY 60 capsule 11 02/22/2022 05/28/2023 [id number] PO Take by mouth once daily 06/13/2023 celecoxib (CELEBREX) 200 MG capsuleIndications:Nicole lexii osteoarthritis of left hip Take 1 (one) [...] fluticasone propionate (FLONASE) 50 MCG/ACT nasal spray Jackson 2 (two) sprays into each nostril once daily 48 g 10/20/2021 11/25/2022 gabapentin (Neurontin) 300 MG capsuleIndications:Nicole stahl osteoarthritis of left hip Take 1 (one) capsule by mouth 3 times daily 90 capsule 5 04/06/2022 11/19/2022 WUTEUK-[id number]-ARM-C -HYAL PO Take 1 tablet by mouth [...] Contact Info) Description 07/25/2024 10:00 AM SHEET METAL ASSEMBLER Office Visit [facility] Physician Group - Endocrinology [address] [place] [phone] Yosi Bustamante MD [address] [place] [address] 2L [place] [address] 07/26/2024 10:00 AM SHEET METAL ASSEMBLER Appointment [facility] DIAGNOSTIC RAD [address] [place] [address] Neri Delgado MD [address] [place] [address] 07/26/2024 10:00 AM SHEET METAL ASSEMBLER Office Visit [facility] Physician Group - ENT [address] [place] [phone] Myra Farmer, FACILITIES DIRECTOR [address] [place] [address] 2L [place] [phone] 07/26/2024 11:15 AM SHEET METAL ASSEMBLER Office Visit [facility] Physician Group - ENT [address] [place] [phone] Neri Delgado MD [address] [place] [address] 08/02/2024 2:20 PM SHEET METAL ASSEMBLER Appointment [facility] [address] [place] [address] 08/02/2024 3:00 PM SHEET METAL ASSEMBLER Office Visit [facility] Physician Group - Hematology/Oncology [address] [place] [phone] Remi Beckett MD [address] [place] [phone] 08/18/2024 1:45 PM SHEET METAL ASSEMBLER Office Visit [facility] - ENT [address] [place] [phone] Neri Delgado MD [address] [place] [address] documented as of this encounter Procedures Procedure Name Priority Date/Time Associated Diagnosis Comments TYPE + SCREEN PANEL Routine 09/14/2022 3 :13 PM CDT Preop examination documented in this encounter Results * TYPE + SCREEN PANEL (09/14/2022 3:13 PM CDT) Antibody Screen NEG 3:56 PM CDT [facility] BLOOD B[facility] LAB ABO Rh B POS 09/14/2022 3:56 PM CDT [facility] LAB Blood Bank BLOOD SPECIMEN / Unknown Lab Venipuncture / Unknown 09/14/2022 3:13 PM CDT 09/14/2022 3:20 PM CDT Juan Rodriguez MD LAB - BLOOD BANK ORD ERABLES [facility]LOOD [facility] LAB [address] [place] [address], [place] [phone] documented in this encounter Visit Diagnoses Diagnosis Preop examination- Primary Preoperative examination, unspecified documented in this encounter Care Teams Vinyl Top Installer Relationship Specialty Start Date End Date Taniya Grimes MD [address] [place] [address] 2L [place] [phone] PCP - General 07/15/22 10/06/22 Adriana Adams DO [address] [place] [phone] Resident - PCP Internal Medicine 04/06/22 01/12/23 documented as of this encounter
--- OUTSIDE RECORDS SUMMARY | 2024-07-23 07:12 | XMS_ITS | Encounter Summary ---
Author Organization [facility] Health Address [address] [facility] [place] [address] Care Team Providers Care Fine Arts Teacher Name Role Phone Adriana Adams DO Unavailable Taniya Grimes MD Primary Care Provider Encounter Details Date Type Department Care Team (Latest Contact Info) Description 09/25/2022 Travel Social History Tobacco Use Types Packs/Day [...] Coronavirus/COVID-19? No / Unsure 09/02/2022 2:14 PM UTILITY INSPECTOR documented as of this encounter Functional Status [...] st Contact Info) Description 07/25/2024 10:00 AM UTILITY INSPECTOR Office Visit [facility] - Endocrinology [address] [place] [phone] Yosi Bustamante MD [address] [place] [address] 2L [place] [address] 07/26/2024 10:00 AM UTILITY INSPECTOR Appointment [facility] DIAGNOSTIC RAD [address] [place] [address] Neri Delgado MD [address] [place] [address] 07/26/2024 10:00 AM UTILITY INSPECTOR Office Visit [facility] - ENT [address] [place] [phone] Myra Farmer, PHARMACY ANCILLARY [address] [place] [address] 2L [place] [phone] 07/26/2024 11:15 AM UTILITY INSPECTOR Office Visit [facility] - ENT [address] [place] [phone] Neri Delgado MD [address] [place] [address] 08/02/2024 2:20 PM UTILITY INSPECTOR Appointment [facility] [address] [place] [address] 08/02/2024 3:00 PM UTILITY INSPECTOR Office Visit [facility] Physician Group - Hematology/Oncology [address] [place] [phone] Remi Beckett MD [address] [place] [phone] 08/18/2024 1:45 PM UTILITY INSPECTOR Office Visit [facility] - ENT [address] [place] [phone] Neri Delgado MD [address] [place] [address] documented as of this encounter Visit Diagnoses Not on filedocumented in this encounter Care Teams Fine Arts Teacher Relationship Specialty Start Date End Date Taniya Grimes MD [address] [place] [address] OF [facility] [place] [phone] PCP - General 07/15/22 10/06/22 Adriana Adams DO [address] [place] [phone] Resident - PCP Internal Medicine 04/06/22 01/12/23 documented as of this encounter
--- OUTSIDE RECORDS SUMMARY | 2024-07-23 07:12 | XMS_ITS | Encounter Summary ---
Author Organization [facility] Health Address [address] [facility] [place] [address] Care Team Providers Care Dethistler Operator Name Role Phone Adriana Adams DO Unavailable Taniya Grimes MD Primary Care Provider Encounter Details Date Type Department Care Team (Latest Contact Info) Description 09/14/2022 2:50 PM CDT - 09/14/2022 3:04 PM CDT Hospital Encounter [facility] OP DRAW STATION [address] [place] [address] Coy Gómez MD [address] [facility] 2L [facility] [place] [address] Discharge Disposition: Home or Self Care Social [...] Coronavirus/COVID-19? No / Unsure 09/02/2022 2:14 PM HOSPITAL LIBRARIAN documented as of this encounter Functional Status [...] A DAY 60 capsule 11 02/22/2022 05/28/2023 KABGQST-[id number]-CMBM PO Take by mouth once daily 06/13/2023 [...] fluticasone propionate (FLONASE) 50 MCG/ACT nasal spray [place] 2 (two) sprays into each nostril once daily 48 g 10/20/2021 11/25/2022 gabapentin (Neurontin) 300 MG capsuleIndications:Nicole favio osteoarthritis of left hip Take 1 (one) capsule by mouth 3 times daily 90 capsule 5 04/06/2022 11/19/2022 PBPXND-[id number]-ZPW-C -HYAL PO Take 1 tablet by mouth [...] st Contact Info) Description 07/25/2024 10:00 AM HOSPITAL LIBRARIAN [facility] [address] [place] [phone] Yosi Bustamante MD [address] [place] [address] 2L [place] [address] 07/26/2024 10:00 AM HOSPITAL LIBRARIAN Appointment [facility] DIAGNOSTIC RAD [address] [place] [phone] Neri Delgado MD [address] [place] [address] 07/26/2024 10:00 AM HOSPITAL LIBRARIAN Office Visit [facility] - ENT [address] [place] [phone] Myra Farmer, ZAIN [address] [place] [address] 2L [place] [phone] 07/26/2024 11:15 AM HOSPITAL LIBRARIAN Office Visit [facility] - ENT [address] [place] [phone] Neri Delgado MD [address] [place] [address] 08/02/2024 2:20 PM HOSPITAL LIBRARIAN Appointment [facility] [address] [place] [address] 08/02/2024 3:00 PM HOSPITAL LIBRARIAN Office Visit [facility] - Hematology/Oncology [address] [place] [phone] Remi Beckett MD [address] [place] [phone] 08/18/2024 1:45 PM HOSPITAL LIBRARIAN Office Visit [facility] - ENT [address] [place] [phone] Neri Delgado MD [address] [place] [address] documented as of this encounter Procedures Procedure Name Priority Date/Time Associated Diagnosis Comments PTT [facility] Routine 09/14/2022 3:13 PM CDT Pre-op testing PT-INR [facility] Routine 09/14/2022 3:13 PM CDT Pre-op testing CBC W AUTO DIFFERENTIAL Routine 09/14/2022 3:13 PM CDT Pre-op testing BASIC METABOLIC PANEL (CALCIUM TOTAL) Routine 09/14/2022 3:13 PM CDT Pre-op testing documented in this encounter Results * PTT [facility] (09/14/2022 3:13 PM CDT) APTT 27.8 23.0 - 38.4 Seconds 09/14/2022 4:22 PM CDT [facility] Comment:Suggested therapeuti c range for full dose I.V. unfractionated heparin therapy for venous thromboembolism is 71 to 109 seconds. Blood BLOOD SPECIMEN / Unknown Lab Venipuncture / Unknown 09/14/2022 3:13 PM CDT 09/14/2022 4:00 PM CDT Coy Gómez MD LAB - COAGULATION OR DERABLES Performing Organization Address City/[facility]/ZIP Co de Phone Number [facility] [address] [place] [address], [facility] [phone] * PT-INR [facility] (09/14/2022 3:13 PM CDT) Pathologist [facility] PT 12.8 12.1 - 14.8 Seconds 09/14/2022 4:21 PM CDT [facility] INR 1.0 See Comment 09/14/2022 4:21 PM CDT [facility] Comment:The suggested therap eutic range for standard coumadin (warfarin) therapy is an INR of 2.0-3.0. For high-risk patients (Mechanical Mitral Valve Prosthesis, etc.), the suggested prophylactic therapeutic range is an INR of 2.5-3.5. Blood BLOOD SPECIMEN / Unknown Lab Venipuncture / Unknown 09/14/2022 3:13 PM CDT 09/14/2022 4:00 PM CDT Coy Gómez MD LAB - COAGULATION OR DERABLES [facility] [address] [place] [address], [facility] [phone] * (ABNORMAL) CBC WITH DIFFERENTIAL (09/14/2022 3:13 PM CDT) WBC 6.7 3.5 - 10.5 10? 3 /uL 09/14/2022 4:11 PM CDT [facility] RBC 4.31 3.80 - 5.20 10? 6 /uL 09/14/2022 4:11 PM CDT [facility] Hemoglobin 13.1 12.0 - 15.6 g/dL 09/14/2022 4:11 PM [facility] Hematocrit 39.2 35.0 - 45.0 % 09/14/2022 4:11 PM [facility] MCV 91.0 80.7 - 98.3 fL 09/14/2022 4:11 PM [facility] MCH 30.4 26.7 - 34.0 pg 09/14/2022 4:11 PM [facility] MCHC 33.4 30.8 - 35.9 g/dL 09/14/2022 4:11 PM [facility] RDW-SD 42.2 36.0 - 50.0 fL 09/14/2022 4:11 PM [facility] RDW-CV 12.8 11.2 - 14.8 % 09/14/2022 4:11 PM [facility] Platelet Count 256 150 - 400 10? 3 /uL 09/14/2022 4:11 PM [facility] MPV 9.7 9.4 - 12.9 fL 09/14/2022 4:11 PM [facility] nRBC Absolute 0.00 0 10? 3 /uL 09/14/2022 4:11 PM [facility] nRBC Auto 0.0 0 /100 WBC 09/14/2022 4:11 PM [facility] Neutrophils % 61.2 35.0 - 70.0 % 09/14/2022 4:11 PM [facility] Lymphocytes % 26.3 20.0 - 43.0 % 09/14/2022 4:11 PM [facility] Monocytes % 9.9 5.0 - 13.0 % 09/14/2022 4:11 PM [facility] Eosinophils % 0.9 0.0 - 6.0 % 09/14/2022 4:11 PM [facility] Basophil % 1.4 0.0 - 2.0 % 09/14/2022 4:11 PM [facility] Neutrophils Absolute 4.08 1.60 - 7.00 10? 3 /uL 09/14/2022 4:11 PM [facility] Lymphocyte Absolute 1.75 1.10 - 3.90 10? 3 /uL 09/14/2022 4:11 PM CDT [facility] Monocytes Absolute 0.66 0.26 - 1.07 10? 3 /uL 09/14/2022 4:11 PM T [facility] Eosinophils Absolute 0.06 0.00 - 0.47 10? 3 /uL 09/14/2022 4:11 PM T [facility] Basophils Absolute 0.09(H) 0.00 - 0.08 10? 3 /uL 09/14/2022 4:11 PM [facility] Immature Granulocytes % 0.3 0.0 - 1.0 % 09/14/2022 4:11 PM T [facility] Immature Granulocytes Absolute 0.02 09/14/2022 4:11 PM [facility] Blood BLOOD SPECIMEN / Unknown Lab Venipuncture / Unknown 09/14/2022 3:13 PM CDT 09/14/2022 4:00 PM CDT Coy Gómez MD LAB - HEMATOLOGY ORD ERABLES [facility] [address] [place] [address], [facility] [phone] * (ABNORMAL) BASIC METABOLIC PANEL (CALCIUM TOTAL) (09/14/2022 3:13 PM CDT) BUN 12 7 - 26 mg/dL 09/14/2022 4:25 PM [facility] Creatinine 0.93 0.56 - 0.96 mg/dL 09/14/2022 4:25 PM [facility] Sodium 140 136 - 145 mmol/L 09/14/2022 4:25 PM [facility] Potassium 3.9 3.5 - 4.5 mmol/L 09/14/2022 4:25 PM [facility] Chloride 103 98 - 107 mmol/L 09/14/2022 4:25 PM [facility] CO2 27 22 - 29 mmol/L 09/14/2022 4:25 PM T [facility] Glucose 98 70 - 115 mg/dL 09/14/2022 4:25 PM CDT [facility] Calcium 9.0 8.4 - 10.2 mg/dL 09/14/2022 4:25 PM T [facility] Anion Gap 14 8 - 18 09/14/2022 4:25 PM [facility] BUN/Creatinine Ratio 13 7 - 23 09/14/2022 4:25 PM [facility] Osmolality Calculated 290 270 - 300 mOsm/kg 09/14/2022 4:25 PM [facility] eGFR by CKD-EPI 69(L) >=90 mL/min/1.7 3 m2 09/14/2022 4:25 PM [facility] Blood BLOOD SPECIMEN / Unknown Lab Venipuncture / Unknown 09/14/2022 3:13 PM CDT 09/14/2022 4:00 PM CDT Coy Gómez MD LAB - CHEMISTRY ASH WEAV[facility] Organization Address City/State/ZIP Co de Phone Number [facility] [address] [place] [address], [facility] [phone] documented in this encounter Visit Diagnoses Diagnosis Pre-op testing Preoperative examination, unspecified documented in this encounter Care Teams Dethistler Operator Relationship Specialty Start Date End Date Taniya Grimes MD [address] [place] [address] OF [facility] [place] [phone] PCP - General 07/15/22 10/06/22 Adriana Adams DO [address] [place] [address] Resident - PCP Internal Medicine 04/06/22 01/12/23 documented as of this encounter
--- OUTSIDE RECORDS SUMMARY | 2024-07-23 07:12 | XMS_ITS | Encounter Summary ---
Author Organization [facility] Health Address [address] [place] [address] Care Team Providers Care Hoop Puncher Name Role Phone Adriana Adams DO Unavailable Taniya Grimes MD Primary Care Provider Reason for Visit * Reason Onset Date Comments Question 09/29/2022 Encounter Details Date Type Department Care Team (Late st Contact Info) Description 09/29/2022 Telephone [facility] [address] [place] [phone] Neri Delgado MD [address] [place] [phone] Question Social History Tobacco Use Types Packs/Day [...] Coronavirus/COVID-19? No / Unsure 09/02/2022 2:14 PM CLINICAL ASSOC documented as of this encounter Functional Status [...] encounter Miscellaneous Notes * Telephone Encounter - Ros Guo - 09/29/2022 10:38 AM CDT Patient called back and left a message stating that she called Dr. Mcintosh's office and they aregoing to prescribe her something for her throat. * Telephone Encounter - Ros Guo - 09/29/2022 10:17 AM CDT The patient left a message stating that she's had a couple round of radiation and her throat is in extreme pain. She said she's drink ice water or coffee as the cold and heat hurt her throat. She said she has surgery on Wednesday(looks like with Dr. Gómez) and is not sure if she needs to do something before then. She doesn't know if she has strep. [phone] documented in this encounter Plan of Treatment Upcoming Encounters Date Type Department Care Team (Late st Contact Info) Description 07/25/2024 10:00 AM CLINICAL ASSOC Office Visit [facility] - Endocrinology [address] [facility], [place] [phone] Yosi Bustamante MD [address] [place] [address] [place] [address] 07/26/2024 10:00 AM CLINICAL ASSOC Appointment [facility] RAD [address] [place] [address] Neri Delgado MD [address] [place] [address] 07/26/2024 10:00 AM CLINICAL ASSOC Office Visit [facility] - ENT [address] [place] [phone] Myra Farmer, SIGN PAINTER [address] [place] [address] 2L [place] [phone] 07/26/2024 11:15 AM CLINICAL ASSOC Office Visit [facility] - ENT [address] [place] [phone] Neri Delgado MD [address] [place] [address] 08/02/2024 2:20 PM CLINICAL ASSOC Appointment [facility] [address] [place] [address] 08/02/2024 3:00 PM CLINICAL ASSOC Office Visit [facility] - Hematology/Oncology [address] [place] [phone] Remi Beckett MD [address] [place] [phone] 08/18/2024 1:45 PM CLINICAL ASSOC Office Visit [facility] - ENT [address] [place] [phone] Neri Delgado MD [address] [place] [address] documented as of this encounter Visit Diagnoses Not on filedocumented in this encounter Care Teams Hoop Puncher Relationship Specialty Start Date End Date Taniya Grimes MD [address] [place] [address] 2L DIV OF GEN [place] [phone] PCP - General 07/15/22 10/06/22 Adriana Adams DO [address] [place] [phone] Resident - PCP Internal Medicine 04/06/22 01/12/23 documented as of this encounter
--- OUTSIDE RECORDS SUMMARY | 2024-07-23 07:12 | XMS_ITS | Encounter Summary ---
Author Organization [facility] Health Address [address] [facility] [place] [address] Care Team Providers Care Rn Support Services Name Role Phone Adriana Adams DO Unavailable Taniya Grimes MD Primary Care Provider Encounter Details Date Type Department Care Team (Latest Contact Info) Description 08/21/2022 Travel Social History Tobacco Use Types Packs/Day [...] Contact Info) Description 07/25/2024 10:00 AM SERVICE PORTER Office Visit [facility] - Endocrinology [address] [place] [address] Yosi Bustamante MD [address] [place] [address] 2L [place] [address] 07/26/2024 10:00 AM SERVICE PORTER Appointment [facility] DIAGNOSTIC RAD [address] [place] [address] Neri Delgado MD [address] [place] [address] 07/26/2024 10:00 AM SERVICE PORTER Office Visit [facility] - ENT [address] [place] [phone] Myra Farmer, PUNCHBOARD FILLING MACHINE OPERATOR [address] [place] [address] 2L [place] [phone] 07/26/2024 11:15 AM SERVICE PORTER Office Visit [facility] - ENT [address] [place] [phone] Neri Delgado MD [address] [place] [address] 08/02/2024 2:20 PM SERVICE PORTER Appointment [facility] [address] [place] [address] 08/02/2024 3:00 PM SERVICE PORTER Office Visit [facility] - Hematology/Oncology [address] [place] [phone] Remi Beckett MD [address] [place] [phone] 08/18/2024 1:45 PM SERVICE PORTER Office Visit [facility] - ENT [address] [place] [phone] Neri Delgado MD [address] [place] [address] documented as of this encounter Visit Diagnoses Not on filedocumented in this encounter Care Teams Rn Support Services Relationship Specialty Start Date End Date Taniya Grimes MD [address] [place] [address] PCP - General 07/15/22 10/06/22 Adriana Adams DO [address] [place] [address] Resident - PCP Internal Medicine 04/06/22 01/12/23 documented as of this encounter
--- OUTSIDE RECORDS SUMMARY | 2024-07-23 07:12 | XMS_ITS | Encounter Summary ---
Author Organization [facility] Health Address [address] [facility] [place] [address] Care Team Providers Care Customer Trainer Name Role Phone Adriana Adams DO Unavailable Taniya Grimes MD Primary Care Provider Reason for Visit * Reason Onset Date Comments Imaging 09/03/2022 Encounter Details Date Type Department Care Team (Late st Contact Info) Description 09/03/2022 Telephone [facility]opedics [address] [facility], [place] [address] Mary Beth Lauren MD [address] [place] [address] DOOR [address] [place] [address] Imaging Social History Tobacco Use Types Packs/Day Years [...] Coronavirus/COVID-19? No / Unsure 09/02/2022 2:14 PM SEASONAL DRIVER documented as of this encounter Functional Status [...] encounter Miscellaneous Notes * Telephone Encounter - Bobby Norris RN - 09/03/2022 9:59 AM CST Custom Shoulder CT Date: WednesdaySeptember 25 Arrival: 11:30am CT: 12:00 I spoke with Brisa and she agrees to day and time. Tm ONAL DRIVER documented in this encounter Plan of Treatment Upcoming Encounters Date Type Department Care Team (Late st Contact Info) Description 07/25/2024 10:00 AM SEASONAL DRIVER Office Visit [facility] - Endocrinology [address] [place] [phone] Yosi Bustamante MD [address] [place] [address] 2L [place] [address] 07/26/2024 10:00 AM SEASONAL DRIVER Appointment [facility] DIAGNOSTIC RAD [address] [place] [address] Neri Delgado MD [address] [place] [address] 07/26/2024 10:00 AM SEASONAL DRIVER Office Visit [facility] - ENT [address] [place] [phone] Myra Farmer, ZAIN [address] [place] [address] 2L [place] [address] 07/26/2024 11:15 AM SEASONAL DRIVER Office Visit [facility] - ENT [address] [place] [address], [place] [address] Neri Delgado MD [facility] [place] [address] 08/02/2024 2:20 PM SEASONAL DRIVER Appointment [facility] [address] [place] [address] 08/02/2024 3:00 PM SEASONAL DRIVER Office Visit [facility] Group - Hematology/Oncology [address] [place] [phone] [place] [address] [place] [phone] 08/18/2024 1:45 PM SEASONAL DRIVER Office Visit [facility] - ENT [address] [place] [phone] Neri Delgado MD [facility] [place] [address] documented as of this encounter Visit Diagnoses Not on filedocumented in this encounter Care Teams Customer Trainer Relationship Specialty Start Date End Date Taniya Grimes MD [address] [place] [address] 2L DIV [place] [address] PCP - General 07/15/22 10/06/22 Adriana Adams DO [address] [place] [phone] Resident - PCP Internal Medicine 04/06/22 01/12/23 documented as of this encounter
--- OUTSIDE RECORDS SUMMARY | 2024-07-23 07:12 | XMS_ITS | Encounter Summary ---
Author Organization [facility] Health Address [address] [facility] [place] [address] Care Team Providers Care Pepper Cutter Name Role Phone Adriana Adams DO Unavailable Taniya Grimes MD Primary Care Provider Joseph Manzanares MD Primary Care Provider [phone] Encounter Details Date Type Department Care Team (Late st Contact Info) Description 09/29/2022 Orders Only [facility] RAD ONC [address] [place], [place] [phone] Marcio Mcintosh MD [address] [place], [place] [phone] Social History Tobacco Use Types Packs/Day Years [...] Date Recorded PHQ2 TOTAL SCORE 0 09/02/2022 [facility] Occupat ional [facility] - Occupational Stress Questionnaire Answer Date [...] Coronavirus/COVID-19? No / Unsure 09/02/2022 2:14 PM PATIENT CARE TECHNICIAN documented as of this encounter Functional Status [...] Contact Info) Description 07/25/2024 10:00 AM PATIENT CARE TECHNICIAN Office Visit [facility] - Endocrinology [address] [place] [phone] Yosi Bustamante MD [address] [place] [address] 2L [place] [address] 07/26/2024 10:00 AM PATIENT CARE TECHNICIAN Appointment [facility] DIAGNOSTIC RAD [address] [place] [address] Neri Delgado MD [address] [place] [address] 07/26/2024 10:00 AM PATIENT CARE TECHNICIAN [facility] [address] [place] [phone] Myra Farmer, GRINDING MACHINE OPERATOR AUTOMATIC [address] [place] [address] 2L [place] [phone] 07/26/2024 11:15 AM PATIENT CARE TECHNICIAN Office Visit [facility] Group - ENT [address] [place] [phone] Neri Delgado MD [address] [place] [address] 08/02/2024 2:20 PM PATIENT CARE TECHNICIAN Appointment [facility] [address] [place] [address] 08/02/2024 3:00 PM PATIENT CARE TECHNICIAN Office Visit [facility] Group - Hematology/Oncology [address] [place] [phone] [place] [address] [place] [phone] 08/18/2024 1:45 PM PATIENT CARE TECHNICIAN Office Visit [facility] - ENT [address] [place] [phone] Neri Delgado MD [address] [place] [address] documented as of this encounter Visit Diagnoses Not on filedocumented in this encounter Care Teams Pepper Cutter Relationship Specialty Start Date End Date Taniya Grimes MD [address] [place] [address] 2L DIV OF [place] [phone] PCP - General 07/15/22 10/06/22 Joseph Manzanares MD [address] [place] [phone] PCP - General Internal Medicine 10/07/22 04/20/23 Adriana Adams DO [address] [place] [phone] Resident - PCP Internal Medicine 04/06/22 01/12/23 documented as of this encounter
--- OUTSIDE RECORDS SUMMARY | 2024-07-23 07:12 | XMS_ITS | Encounter Summary ---
Author Organization [facility] Address [address] [facility] [place] [address] Care Team Providers Care Deputy General Counsel Name Role Phone Adriana Adams DO Unavailable Taniya Grimes MD Primary Care Provider Reason for Referral * Procedure (Routine) - Closed Specialty Diagnoses / Procedures Referred By Contac t Referred To Contact Cardiology Diagnoses Pre-op testing Procedures EKG 12-LEAD Coy Gómez MD [address] [facility] 2L [place] [address] Referral ID Status Reason Start Date Expiration Date Visits Re quested Visits Authorized [id number] Closed 09/02/2022 09/02/2023 1 1 Encounter Details Date Type Department Care Team (Latest Contact Info) Description 09/14/2022 2:18 PM CDT - 09/14/2022 2:49 PM CDT Hospital Encounter [facility] EKG/HOLTER [address] [place] [address] Coy Gómez MD [address] [facility] 2[address] [place] [address] Discharge Disposition: Home or Self Care Social [...] In the last 10 days, have amee u been in contact with someone who was confirmed or suspected to have Coronavirus/COVID-19? No / Unsure 09/02/2022 2:14 PM HOSPITAL INTERNSHIP documented as of this encounter Functional Status [...] A DAY 60 capsule 11 02/22/2022 05/28/2023 [id number] PO Take by mouth once daily 06/13/2023 [...] fluticasone propionate (FLONASE) 50 MCG/ACT nasal spray [place] 2 (two) sprays into each nostril once daily 48 g 10/20/2021 11/25/2022 gabapentin (Neurontin) 300 MG capsuleIndications:Nicole stahl osteoarthritis of left hip Take 1 (one) capsule by mouth 3 times daily 90 capsule 5 04/06/2022 11/19/2022 [id number]-IWL-C -HYAL PO Take 1 tablet by mouth [...] Contact Info) Description 07/25/2024 10:00 AM HOSPITAL INTERNSHIP [facility] [address] [facility], [place] [phone] Yosi Bustamante MD [address] [place] [address] [place] [address] 07/26/2024 10:00 AM HOSPITAL INTERNSHIP Appointment [facility] DIAGNOSTIC RAD [address] [place] [address] Neri Delgado MD [address] [place] [address] 07/26/2024 10:00 AM HOSPITAL INTERNSHIP Office Visit [facility] - ENT [address] [place] [phone] Myra Farmer, RETAIL SERVICES PROFESSIONAL [address] [place] [address] [place] [address] 07/26/2024 11:15 AM HOSPITAL INTERNSHIP Office Visit [facility] - ENT [address] [place] [phone] Neri Delgado MD [address] [place] [address] 08/02/2024 2:20 PM HOSPITAL INTERNSHIP Appointment [facility] [address] [place] [address] 08/02/2024 3:00 PM HOSPITAL INTERNSHIP Office Visit [facility] - Hematology/Oncology [address] [place] [phone] Remi Beckett MD [address] [place] [phone] 08/18/2024 1:45 PM HOSPITAL INTERNSHIP [facility] [address] [place] [phone] Neri Delgado MD [address] [place] [address] documented as of this encounter Procedures Procedure Name Priority Date/Time Associated Diagnosis Comments EKG 12-LEAD Routine 09/14/2022 1:58 PM CDT Pre-op testing documented in this encounter Results * EKG 12-LEAD (09/14/2022 1:58 PM CDT) Ventricular Rate 87 BPM [facility] Atrial Rate 87 BPM [facility] P-R Interval 118 ms [facility] QRS Duration ms 80 ms [facility] Q-T Interval ms 376 ms [facility] MUSE QTC Calculation (Bezet) 452 ms [facility] Calculated P [place] 52 degrees [facility] Calculated R [place] 39 degrees [facility] Calculated T [place] 56 degrees [facility] Interpretation EKG NORMAL SINUS RHYTHM NONSPECIFIC ST ABNORMALITY ABNORMAL ECG NO PREVIOUS ECGS AVAILABLE Confirmed by Lulu ROMERO, Hermelinda ([id number]) on 09/14/2022 11:29:48 PM [facility] MUSE 09/14/2022 1:58 PM CDT 09/14/2022 11:29 PM CDT Coy Gómez MD ECG ORDERABLES [facility] MUSE documented in this encounter Visit Diagnoses Diagnosis Pre-op testing Preoperative examination, unspecified documented in this encounter Care Teams Deputy General Counsel Relationship Specialty Start Date End Date Taniya Grimes MD [address] [facility] 2L [facility] [place] [phone] PCP - General 07/15/22 10/06/22 Adriana Adams DO [address] [place] [address] Resident - PCP Internal Medicine 04/06/22 01/12/23 documented as of this encounter
--- OUTSIDE RECORDS SUMMARY | 2024-07-23 07:12 | XMS_ITS | Encounter Summary ---
Author Organization [facility] Health Address [address] [facility] [place] [address] Care Team Providers Care Transfusion Aide Name Role Phone Adriana Adams DO Unavailable Taniya Grimes MD Primary Care Provider Encounter Details Date Type Department Care Team (Late st Contact Info) Description 09/08/2022 Orders Only [facility] [address] [facility], [place] [phone] Coy Gómez MD [address] [place] [address] 2L DIV OF NEUROSURGERY [place], [place] [phone] Cervical spine tumor Social History Tobacco Use Types Packs/Day Years [...] Coronavirus/COVID-19? No / Unsure 09/02/2022 2:14 PM CLIENT SERVICES ASSOCIATE documented as of this encounter Functional Status [...] st Contact Info) Description 07/25/2024 10:00 AM CLIENT SERVICES ASSOCIATE Office Visit [facility] - Endocrinology [address] [place] [phone] Yosi Bustamante MD [address] [place] [address] 2L [place] [address] 07/26/2024 10:00 AM CLIENT SERVICES ASSOCIATE Appointment [facility] DIAGNOSTIC RAD [address] [place] [address] Neri Delgado MD [address] [place] [address] 07/26/2024 10:00 AM CLIENT SERVICES ASSOCIATE Office Visit [facility] - ENT [address] [place] [phone] Myra Farmer, READY MIX TRUCK DRIVER [address] [place] [address] 2L [place] [address] 07/26/2024 11:15 AM CLIENT SERVICES ASSOCIATE Office Visit [facility] - ENT [address] [place] [phone] Neri Delgado MD [address] [place] [address] 08/02/2024 2:20 PM CLIENT SERVICES ASSOCIATE Appointment [facility] [address] [place] [address] 08/02/2024 3:00 PM CLIENT SERVICES ASSOCIATE Office Visit [facility] - Hematology/Oncology [address] [place] [phone] Remi Beckett MD [address] [place] [phone] 08/18/2024 1:45 PM CLIENT SERVICES ASSOCIATE Office Visit [facility]NT [address] [place] [phone] Neri Delgado MD [address] [place] [address] documented as of this encounter Visit Diagnoses Diagnosis 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
--- OUTSIDE RECORDS SUMMARY | 2024-07-23 07:12 | XMS_ITS | Encounter Summary ---
Author Organization [facility] Health Address [address] [facility] [place] [address] Care Team Providers Care Mine Production Engineer Name Role Phone Adriana Adams DO Unavailable Taniya Grimes MD Primary Care Provider Reason for Visit * Reason Onset Date Comments Follow-up 09/30/2022 Encounter Details Date Type Department Care Team ([facility] Contact Info) Description 09/30/2022 Telephone [facility] [address] [facility], [place] [phone] Heather Oreilly Follow-up Social History Tobacco Use Types Packs/Day Years [...] Coronavirus/COVID-19? No / Unsure 09/02/2022 2:14 PM TEAM PSYCHOLOGIST documented as of this encounter Functional Status [...] encounter Miscellaneous Notes * Telephone Encounter - Jamarcus Oreillyie - 09/30/2022 4:29 PM CDT Contact patient. Reviewed surgery instructions for Wednesday arrival time 0530am to [facility] 1st floor Rubi Díaz. NPO after midnight. Patient verbalize understanding with no further questions. documented in this encounter Plan of Treatment Upcoming Encounters Date Type Department Care Team (Late st Contact Info) Description 07/25/2024 10:00 AM TEAM PSYCHOLOGIST Office Visit [facility] - Endocrinology [address] [place] [phone] Yosi Bustamante MD [address] [place] [address] 2L [place] [address] 07/26/2024 10:00 AM TEAM PSYCHOLOGIST Appointment [facility] DIAGNOSTIC RAD [address] [place] [address] Neri Delgado MD [address] [place] [address] 07/26/2024 10:00 AM TEAM PSYCHOLOGIST Office Visit [facility] - ENT [address] [place] [phone] Myra Farmer, EXPRESSIVE THERAPIST [address] [place] [address] 2L [place] [address] 07/26/2024 11:15 AM TEAM PSYCHOLOGIST Office Visit [facility] - ENT [address] [place] [phone] Neri Delgado MD [address] [place] [address] 08/02/2024 2:20 PM TEAM PSYCHOLOGIST Appointment [facility] [address] [place] [address] 08/02/2024 3:00 PM TEAM PSYCHOLOGIST Office Visit [facility] - Hematology/Oncology [address] [place] [phone] Remi Beckett MD [address] [place] [phone] 08/18/2024 1:45 PM TEAM PSYCHOLOGIST Office Visit [facility] - ENT [address] [place] [phone] Neri Delgado MD [address] [place] [address] documented as of this encounter Visit Diagnoses Not on filedocumented in this encounter Care Teams Mine Production Engineer Relationship Specialty Start Date End Date Taniya Grimes MD [address] [place] [address] DIV [place] [phone] PCP - General 07/15/22 10/06/22 Adriana Adams DO [facility] [place] [phone] Resident - PCP Internal Medicine 04/06/22 01/12/23 documented as of this encounter
--- OUTSIDE RECORDS SUMMARY | 2024-07-23 07:12 | XMS_ITS | Encounter Summary ---
Author Organization [facility] Health Address [address] [facility] [place] [address] Care Team Providers Care Rfp Writer Name Role Phone Adriana Adams DO Unavailable Taniya Grimes MD Primary Care Provider Reason for Visit * Reason Onset Date Comments Referral 08/26/2022 Encounter Details Date Type Department Care Team (Late st Contact Info) Description 08/26/2022 Telephone [facility] [address] [place] [address] Haleigh Hurt, lard renderer Social History Tobacco Use Types Packs/Day Years [...] encounter Miscellaneous Notes * Telephone Encounter - Haleigh Hurt RN - 08/26/2022 1:54 PM MESSAGING ARCHITECT Referral received from Dr. Bustamante for this patient to be seen by Radiation Medicine. left with patient to set up appointment. Contact information left. AGING ARCHITECT documented in this encounter Plan of Treatment Upcoming Encounters Date Type Department Care Team (Late st Contact Info) Description 07/25/2024 10:00 AM MESSAGING ARCHITECT Office Visit [facility] - Endocrinology [address] [place] [phone] Yosi Bustamante MD [address] [place] [address] 2L [place] [address] 07/26/2024 10:00 AM MESSAGING ARCHITECT Appointment [facility] DIAGNOSTIC RAD [address] [place] [address] Neri Delgado MD [address] [place] [address] 07/26/2024 10:00 AM MESSAGING ARCHITECT Office Visit [facility] - ENT [address] [place] [phone] Myra Farmer, CHANGE MANAGEMENT MANAGER [address] [place] [address] 2L [place] [address] 07/26/2024 11:15 AM MESSAGING ARCHITECT Office Visit [facility] - ENT [address] [place] [phone] Neri Delgado MD [address] [place] [phone] 08/02/2024 2:20 PM MESSAGING ARCHITECT Appointment [facility] [address] [place] [address] 08/02/2024 3:00 PM MESSAGING ARCHITECT Office Visit [facility] - Hematology/Oncology [address] [place] [phone] Remi Beckett MD [address] [place] [phone] 08/18/2024 1:45 PM MESSAGING ARCHITECT Office Visit [facility] [address] [place] [phone] Neri Delgado MD [address] [place] [address] documented as of this encounter Visit Diagnoses Not on filedocumented in this encounter Care Teams Rfp Writer Relationship Specialty Start Date End Date Taniya Grimes MD [address] [place] [address] 2L DIV [place] [phone] PCP - General 07/15/22 10/06/22 Adriana Adams DO [address] [place] [phone] Resident - PCP Internal Medicine 04/06/22 01/12/23 documented as of this encounter
--- OUTSIDE RECORDS SUMMARY | 2024-07-23 07:12 | XMS_ITS | Encounter Summary ---
Author Organization [facility] Health Address [address] [place] [address] Care Team Providers Care Steam Cleaning Machine Operator Name Role Phone Adriana Adams DO Unavailable Taniya Grimes MD Primary Care Provider [phone] Encounter Details Date Type Department Care Team (Latest Contact Info) Description 09/14/2022 3:06 PM CDT - 09/14/2022 11:59 PM CDT Hospital Encounter [facility] DIAGNOSTIC RAD OP [address] [place] [address] Coy Gómez MD [address] [facility] 2L [place] [address] Discharge Disposition: Home or Self Care Social [...] Coronavirus/COVID-19? No / Unsure 09/02/2022 2:14 PM PALLIATIVE CARE SPECIALIST documented as of this encounter Functional Status [...] A DAY 60 capsule 11 02/22/2022 05/28/2023 [id number] PO Take by mouth once daily 06/13/2023 [...] fluticasone propionate (FLONASE) 50 MCG/ACT nasal spray [place] 2 (two) sprays into each nostril once daily 48 g 10/20/2021 11/25/2022 gabapentin (Neurontin) 300 MG capsuleIndications:Nicole favio osteoarthritis of left hip Take 1 (one) capsule by mouth 3 times daily 90 capsule 5 04/06/2022 11/19/2022 [id number]-[id number]-QHE-C -HYAL PO Take 1 tablet by mouth [...] st Contact Info) Description 07/25/2024 10:00 AM PALLIATIVE CARE SPECIALIST [facility] [address] [place] [phone] Yosi Bustamante MD [address] [place] [address] 2L [place] [address] 07/26/2024 10:00 AM PALLIATIVE CARE SPECIALIST Appointment [facility] DIAGNOSTIC RAD [address] [place] [phone] Neri Delgado MD [address] [place] [address] 07/26/2024 10:00 AM PALLIATIVE CARE SPECIALIST Office Visit [facility] - ENT [address] [place] [phone] Myra Farmer, ZAIN [address] [place] [address] 2L [place] [phone] 07/26/2024 11:15 AM PALLIATIVE CARE SPECIALIST Office Visit [facility] - ENT [address] [place] [phone] Neri Delgado MD [address] [place] [address] 08/02/2024 2:20 PM PALLIATIVE CARE SPECIALIST Appointment [facility] [address] [place] [address] 08/02/2024 3:00 PM PALLIATIVE CARE SPECIALIST Office Visit [facility] - Hematology/Oncology [address] [place] [phone] Remi Beckett MD [address] [place] [phone] 08/18/2024 1:45 PM PALLIATIVE CARE SPECIALIST Office Visit [facility] - ENT [address] [place] [phone] Neri Delgado MD [address] [place] [address] documented as of this encounter Procedures Procedure Name Priority Date/Time Associated Diagnosis Comments XR CHEST 2VW Routine 09/14/2022 3:08 PM CDT Pre-op testing documented in this encounter Results * XR CHEST 2VW (09/14/2022 3:08 PM CDT) Anatomical Region Laterality Modality Chest Radiographic Ewa ging 09/14/2022 3:09 PM CDT Narrative 09/14/2022 3:54 PM CDT PROCEDURE: ??XR CHEST 2VW, DATE/TIME OF EXAM: ??09/14/2022 3:09 PM, LOCATION [facility] INDICATION: Z01.818: Pre-op testing ADDITIONAL CLINICAL INFORMATION: COMPARISON: No prior study is available for comparison. FINDINGS/IMPRESSION: Calcified granuloma of right upper lung field is seen. There is no focal consolidation, pleural effusion, or pneumothorax. The cardiomediastinal silhouette is normal. The visible bony thorax is intact. > Dictated by Wayne Carbajal MD (residential collections). Zi Mckeon MD have personally reviewed and interpreted this examination/study. > Interpreting Provider: Zi Vee MD on 09/14/2022 3:54 PM Procedure Note Zi Vee MD - 09/14/2022 PROCEDURE: XR CHEST 2VW, DATE/TIME OF EXAM: 09/14/2022 3:09 PM, LOCATION [facility] INDICATION: Z01.818: Pre-op testing ADDITIONAL CLINICAL INFORMATION: COMPARISON: No prior study is available for comparison. FINDINGS/IMPRESSION: Calcified granuloma of right upper lung field is seen. There is no focal consolidation, pleural effusion, or pneumothorax. The cardiomediastinal silhouette is normal. The visible bony thorax is intact. > Dictated by Wayne Carbajal MD (residential collections). Zi Mckeon MD have personally reviewed and interpreted this examination/study. > Interpreting Provider: Zi Vee MD on 33:54 PM Coy Gómez MD DIAGNOSTIC IMAGING O RDERABLES documented in this encounter Visit Diagnoses Diagnosis Pre-op testing Preoperative examination, unspecified documented in this encounter Care Teams Steam Cleaning Machine Operator Relationship Specialty Start Date End Date Taniya Grimes MD [address] [facility] 2L DIV OF [facility] [place] [phone] PCP - General 07/15/22 10/06/22 Adriana Adams DO [address] [place] [address] Resident - PCP Internal Medicine 04/06/22 01/12/23 documented as of this encounter
--- OUTSIDE RECORDS SUMMARY | 2024-07-23 07:12 | XMS_ITS | Encounter Summary ---
Author Organization [facility] Address [address] [place] [address] Care Team Providers Care Cable Maker Name Role Phone Adriana Adams DO Unavailable Taniya Grimes MD Primary Care Provider [phone] Reason for Referral * Radiology Services (Routine) - Closed Specialty Diagnoses / Procedures Referred By Yuan robins Referred To Contact Diagnoses Neoplasm of uncertain behavior of skin Thyroid cancer (HCC) Procedures MRI CERVICAL SPINE WWO CONT Marcio Mcintosh MD [address] [place] [address] [phone] Referral ID Status Reason Start Date Expiration Date Visits Re quested Visits Authorized [id number] Closed 12/15/2022 12/15/2023 1 1 Encounter Details Date Type Department Care Team (Latest Contact Info) Description 09/21/2022 2:06 PM CDT - 09/21/2022 11:59 PM CDT Hospital Encounter [facility] RAD [facility]C [facility] [place] [address] Marcio Mcintosh MD [address] [place] [address] Discharge Disposition: Home or Self [...] Coronavirus/COVID-19? No / Unsure 09/02/2022 2:14 PM HUMAN RELATIONS TEACHER documented as of this encounter Last Filed Vital Signs Vital Sign Reading Time Taken Comments Blood Pressure 134/89 09/21/2022 2:44 PM CDT Pulse 101 09/21/2022 2:44 PM CDT Temperature 36.6 ??C (97.8 ??F) 09/21/2022 2:44 PM CD T Respiratory Rate 18 09/21/2022 2:44 PM CDT Oxygen Saturation 97% 09/21/2022 2:44 PM CDT Inhaled Oxygen Concentration - - Weight 68.7 kg (151 lb 6.4 oz) 09/21/2022 2:44 P M CDT Height - - Body Mass Index 27.69 09/14/2022 2:21 PM CDT documented in this encounter Functional [...] A DAY 60 capsule 11 02/22/2022 05/28/2023 [id number]-[id number] PO Take by mouth once daily 06/13/2023 celecoxib (CELEBREX) 200 MG capsuleIndications:Nicole favio osteoarthritis of left [...] fluticasone propionate (FLONASE) 50 MCG/ACT nasal spray [place] 2 (two) sprays into each nostril once daily 48 g 10/20/2021 11/25/2022 gabapentin (Neurontin) 300 MG capsuleIndications:Nicole stahl osteoarthritis of left hip Take 1 (one) capsule by mouth 3 times daily 90 capsule 5 04/06/2022 11/19/2022 UVYIID-CXTMHJPJG-NYV-C -HYAL PO Take 1 tablet by mouth [...] Progress Notes * Marcio Mcintosh MD - 09/21/2022 7:05 PM CDT Images from the original note were not included. On Treatment Patient Visit Department of Radiation Oncology [facility] ENCOUNTER DATE: 09/21/2022 PATIENT IDENTIFICATION Brisa Hogan 1960 Autopopulated Diagnosis: 1. Neoplasm of uncertain behavior of skin 2. Thyroid cancer (CMS/HCC) 3. Cancer, metastatic to bone (CMS/HCC) Radiation Dose: Brisa has received 2400cGy in 2 fractions of planned 2 fractions. Chemotherapy: Patient is NOT receiving concurrent chemotherapy. [facility] / [facility]: All images reviewed and approved for the week SUBJECTIVE: Ms. rBisa Hogan is a 62 year old female who presents for an on treatment visit. Brsia has presented with a friend describing nausea, decreased sleep and fatigue, worsened pain inher shoulders previously left and now radiating to the right side. She continues to have limited use of her left arm and continues with a walker. She denies any dysphagia. She denies any worsening lower extremity weakness. Radiation Oncology Nursing Assessement 09/21/2022 Education: Education done: no Karnofsky ECOG Score: Karnofsky ECOG Score: [place] 80- Normal activity with effort, some sign of symptoms of disease/ECOG 1-Restricted in physically strenuous activity but ambulatory and able to carry out work of a light or sedentary nature Treatment Sites: Treatment Sites: (cervical spine) System Assessment: Pain: Pain: Yes (shoulders) Nausea: Nausea: Yes Fatigue: Fatigue: Yes Sleep: Sleep: Yes (due to pain) Mobility: Mobility: Yes (walker, L arm is limited) Bathing/Dressing: Bathing/Dressing: No Breathing: Breathing: No Mouth Sores: Mouth Sores: No Eating: Eating: Yes (decreased appetite) Indigestion: Indigestion: No Constipation: Constipation: No Diarrhea: Diarrhea: No Changes in Urination: Changes in urination: No Fevers: Fevers: No Skin Dry/Itchy: Skin dry/itchy: Yes (generally dry) Nasal: Nasal: No Hands/Feet: Tingling in hands/feet: Yes (L hand) Memory/Concentration: Memory/concentation: No Swelling: Swelling: Yes (L hand) Appearance: Appearance: No Sexual: Mucous Membrances: Mucous Membranes: Moist Eye: Eyes: 0-No guide changer baseline Ears: Salivary Glands: Salivary Glands: 0-no guide changer baseline Pharynx and Esophagus: Pharynx and Esophagus: 0-No guide changer baseline Larynx: Larynx: 0-No change in baseline Upper GI: Upper GI: 0-no guide changer baseline Lower GI including pelvis: Lower GI including pelvis: 0-No guide changer baseline Lungs: Lungs: 0-No guide changer baseline Other: MEDICATIONS: Current Outpatient Medications: ??? acetaminophen (TYLENOL) 500 MG tablet, Take 2 (two) tablets by mouth every 6 hours as needed, Disp: , Rfl: ??? atorvastatin (Lipitor) 40 MG tablet, TAKE 1 TABLET BY MOUTH EVERYDAY AT BEDTIME, Disp: 30 tablet, Rfl: 3 ??? B Complex Vitamins (B COMPLEX 1 PO), Take by mouth once daily, Disp: , Rfl: ??? buPROPion SR 12hr (Wellbutrin-SR) 100 MG tablet, Take 1 (one) tablet by mouth 2 times daily, Disp: , Rfl: ??? calcitriol (Rocaltrol) 0.5 MCG capsule, TAKE 1 CAPSULE BY MOUTH TWICE A DAY, Disp: 60 capsule, Rfl: 11 ??? DMNLXRR-QBRLZBGIU-CJQG PO, Take by mouth once daily, Disp: , Rfl: ??? celecoxib (CELEBREX) 200 MG capsule, Take 1 (one) capsule by mouth once daily, Disp: 90 capsule, Rfl: 3 ??? cetirizine (ZYRTEC) 10 MG tablet, Take 1 (one) tablet by mouth once daily, Disp: 30 tablet, Rfl: 5 ??? clonazePAM (KLONOPIN) 0.5 MG tablet, Take 1.5 (one and one-half) tablets by mouth once daily, Disp: , Rfl: ??? cyclobenzaprine (Flexeril) 5 MG tablet, Take 1 (one) tablet by mouth 3 times daily as needed (muscle spasms), Disp: 90 tablet, Rfl: 0 ??? famotidine (PEPCID) 20 MG tablet, Take 1 (one) tablet by mouth 2 times daily as needed, Disp: ,Rfl: ??? fish oil/omega-3 fatty acids (PROMEGA;CARDI-OMEGA 3) 1000 MG capsule, Take 1 (one) capsule by mouth 3 times daily with meals, Disp: , Rfl: ??? fluticasone propionate (FLONASE) 50 MCG/ACT nasal spray, [place] 2 (two) sprays into each nostrilonce daily, Disp: 48 g, Rfl: 0 ??? gabapentin (Neurontin) 300 MG capsule, Take 1 (one) capsule by mouth 3 times daily, Disp: 90 capsule, Rfl: 5 ??? PNGNSF-TYMLIOLFO-GMG-C-HYAL PO, Take 1 tablet by mouth 3 times daily, Disp: , Rfl: ??? levothyroxine (Synthroid) 112 MCG tablet, TAKE 1 TABLET BY MOUTH EVERY DAY, Disp: 90 tablet, Rfl: 4 ??? lidocaine (Lidoderm) 5 % patch, Apply 2 (two) patches to skin once daily Apply patch to most painful area and remove after 12 hours. May reapply a new patch 12 hours later. (Patient not taking: Reported on 09/15/2022), Disp: 60 patch, Rfl: 0 ??? naproxen (Naprosyn) 500 MG tablet, Take 1 (one) tablet by mouth 2 times daily as needed (Patient not taking: Reported on 09/14/2022), Disp: , Rfl: ??? nicotine (NICODERM CQ) 14 MG/24HR patch, Apply 1 (one) patch to skin once daily (Patient not taking: Reported on 09/02/2022), Disp: 30 patch, Rfl: 6 ??? oxybutynin CR 24hr (Ditropan-XL) 5 [...] by mouth at bedtime, Disp: , Rfl: ??? vitamin E (TOCOPHERYL) 200 UNIT capsule, Take 1 (one) capsule by mouth 3 times daily (Patient not taking: Reported on 09/15/2022), Disp: , Rfl: OBJECTIVE: Vitals: 09/21/22 1444 BP: 134/89 Pulse: 101 Resp: 18 Temp: 97.8 ??F SpO2: 97% Weight: 68.7 kg (151 lb 6.4 oz) PainSc: Two PainLoc: Shoulder Wt Readings from Last 3 Encounters: 09/21/22 68.7 kg (151 lb 6.4 oz) 09/15/22 70.3 kg (155 lb) 09/14/22 71 kg (156 lb 9.6 oz) KPS is 70 Anicteric alert. There is continued weakness on the left side noting mostly in the left upper extremity The bilateral lower extremities are strong at 4 - of 5 left, 4+/5 right No peripheral edema LABORATORY: Lab results smartLinks are not currently available Recent Labs Component Name 09/14/22 1513 WBC 6.7 Recent Labs Component Name 09/14/22 1513 POTASSIUM 3.9 CO2 27 BUN 12 CREATININE 0.93 GLUCOSE 98 Recent Labs Component Name 09/14/22 1513 INR 1.0 IMPRESSION/PLAN Brisa Hogan has completed radiation therapy. We have reviewed her normal typical side effects from spine treatment. Nausea and progressive pain may be more sleep related and she was encouraged to utilize her current medication. She may proceed on to further surgical excision at the end of September. We may plan for approximately 3 month MRI scan of the spine and review of her pathology Marcio Mcintosh MD 09/21/2022 7:09 PM Detailed Radiation Delivery (All): Radiation Treatments Active Reference Points PTV1 Most recent treatment: Dose given: 1,200 cGy (on 09/21/2022) Total: Dose given: 2,400 cGy Elapsed Days: -- Historical Plans #CSpine Most recent treatment: Dose planned: -- (fraction 2 on 09/21/2022) Total: Dose planned: 2,400 cGy (2 fractions) Elapsed Days: -- documented in this encounter Plan of Treatment Upcoming Encounters Date Type Department Care Team (Late st Contact Info) Description 07/25/2024 10:00 AM HUMAN RELATIONS TEACHER Office Visit [facility] - Endocrinology [address] [place] [phone] Yosi Bustamante MD [address] [place] [address] 2L Div [place] [address] 07/26/2024 10:00 AM HUMAN RELATIONS TEACHER Appointment [facility] [address] [place] [address] Neri Delgado MD [address] [place] [phone] 07/26/2024 10:00 AM HUMAN RELATIONS TEACHER Office Visit [facility] - ENT [address] [place] [phone] Myra Farmer, COPPERSMITH APPRENTICE [address] [place] [address] [address] [place] [phone] 07/26/2024 11:15 AM HUMAN RELATIONS TEACHER Office Visit [facility] - ENT [address] [place] [phone] Neri Delgado MD [address] [place] [phone] 08/02/2024 2:20 PM HUMAN RELATIONS TEACHER Appointment [facility] [address] [place] [phone] 08/02/2024 3:00 PM HUMAN RELATIONS TEACHER Office Visit [facility] - Hematology/Oncology [address] [place] [phone] Remi Beckett MD [address] [place] [phone] 08/18/2024 1:45 PM HUMAN RELATIONS TEACHER Office Visit [facility] - ENT [address] [place] [address] Neri Delgado MD [address] [place] [phone] documented as of this encounter Procedures Procedure Name Priority Date/Time Associated Diagnosis Comments RAD ONC ARIA SESSION SUMMARY Routine 09/21/2022 2:38 PM CDT documented in this encounter Results [...] DATE/TIME OF EXAM: ??12/24/2022 11:32 AM, LOCATION ??[facility] INDICATION: D48.5: Neoplasm of uncertain [...] history of metastatichigh risk papillary thyroid cancer ([id number] - IVb) s/psalvage total thyroidectomyrequiringsacrifice ofrightRLN/tracheal resection/re-anastomosis,bilateral later[place] central neck kjmhlfaggtvy89/04/2022with right neck residual/recurrent diseaseand metastases to the [...] the left vertebral artery.The patient presented to [facility] for electiveC2-T2 fusion and decompression C3-C7 [...] DATE/TIME OF EXAM: 12/24/2022 11:32 AM, LOCATION [facility] INDICATION: D48.5: Neoplasm of uncertain [...] a history ofmetastatichigh risk papillary thyroid cancer ([id number] - IVb) s/psalvage total thyroidectomyrequiringsacrifice ofrightRLN/tracheal resection/re-anastomosis,bilateral later[place] central neck zevvazbfnpjm64/04/2022with right neck residual/recurrent diseaseand metastases to the [...] the left vertebral artery.The patient presented to [facility] for electiveC2-T2 fusion and decompression C3-C7 [...] AM Marcio Mcintosh MD MR ORDERABLES * Rad Onc Aria Session Summary [...] RADIATION ONCOLOGY O RDERABLES RAD ONC TREATMENT documented in this encounter Visit Diagnoses Diagnosis Neoplasm of uncertain behavior of skin- Primary Thyroid cancer (HCC) Malignant neoplasm of thyroid gland Cancer, metastatic to bone (HCC) 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
--- OUTSIDE RECORDS SUMMARY | 2024-07-23 07:12 | XMS_ITS | Encounter Summary ---
Author Organization [facility] Address [address] [facility] [place] [address] Care Team Providers Care Poising Inspector Name Role Phone Adriana Adams DO Unavailable Taniya Grimes MD Primary Care Provider Reason for Visit * Auth/Cert (Routine) Specialty Diagnoses / Procedures Referred By Contac t Referred To Contact Diagnoses Cervical spine tumor spine tumor Procedures FUSION POSTERIOR CERVICAL (PCF) Referral ID Status Reason Start Date Expiration Date Visits Re quested Visits Authorized [id number] 1 1 Encounter Details Date Type Department Care Team (Late st Contact Info) Description 10/02/2022 7:30 AM CDT - 10/02/2022 12:35 PM CDT Surgery [facility] [address] [place] [address] Coy Gómez MD [address] [facility] 2L [place] [address] C2-T2 fusion and decompression C3-C7 and resection extramedullary spine tumor Surgery Details Date/Time Status Location OR Service Patient Class Case Class Case Type Trauma Case? 10/02/2022 7:30 AM Posted [facility] OR OR 15 Neurosurgery Factory Superintendent Admit Surgical Elective > 5 days Panel 1 Procedure LRB Anes Op Region Wound Class Comments C2-T2 fusion and decompressi on C3-C7 and resection extramedullary spine tumor N/A General Shiloh n Surgeon Surgeon Role Service Panel Coy Gómez MD Primary Neurosurgery 1 Carloz Corea MD Resident - Assisting Neurosu rgery 1 Brady Guerrero MD Resident - Assisting Neurosurge ry 1 Special Needs PRONE, C-ARM, O-ARM Kinevo scope NEUROMONITORING (SSEP,MEP,EMG), MEDTRONIC--Samir notified mk 09/28 documented in this encounter Social History Tobacco [...] Date Recorded PHQ2 TOTAL SCORE 0 09/02/2022 [facility] [place] of Occupat ional Health - Occupational Stress [...] Coronavirus/COVID-19? No / Unsure 09/02/2022 2:14 PM ELECTRONIC SYSTEMS TECHNICIAN documented as of this encounter Last Filed Vital Signs Vital Sign Reading Time Taken Comments Blood Pressure 163/86 10/02/2022 12:35 PM CDT Pulse 86 10/02/2022 12:35 PM CDT Temperature 36.4 ??C (97.5 ??F) 10/02/2022 11:26 AM C DT Respiratory Rate 30 10/02/2022 11:45 AM CDT Oxygen Saturation 100% 10/02/2022 12:35 PM CDT Inhaled Oxygen Concentration - [...] CDT Physician Discharge Summary Patient ID: Elizabeth Hogan [id number] 62 year old 1960 Admit date: 10/02/2022 [...] Condition: good Indication for Admission: Hospital Course: nikkie is a 62 year old female with metastatic??high risk papillary thyroid cancer??(vD4lY3tPl - IVb) s/p??salvage total thyroidectomy and neck [...] place, time) Motor: ?? Deltoid Bicep Tricep Informatics Analyst Wrist Ext Finger ext Hip Flexor Quad Hamstring Tib Ant Gastroc EHL Right 5 5 5 5 5 5 5 5 5 5 5 5 Left 1 1 4 4+ 4+ 4+ 4 5 5 5 5 5 ? Disposition:home Patient Instructions: Numb cream Neurosurgery Inpatient Discharge Instructions If you have any questions about the instructions below please call: [phone], ask for the Neurosurgery resident organizational development director. Diet: regular diet Wound care after surgery: [...] you were sent home on please call [phone], and ask for the Neurosurgery resident organizational development director. Do not sign important papers or make [...] clinic appointment information call Heather Oreilly at [phone]. - Also, you can call Outpatient Permaculture Contractor at [phone] 2) Please see your family doctor for [...] any questions about these instructions please call: [phone], ask for the Neurosurgery resident organizational development director. This list of medications is preliminary and [...] 1 CAPSULE BY MOUTH TWICE A DAY MATJMDB-[id number]-UNQW PO Take by mouth once daily cetirizine [...] fluticasone propionate (FLONASE) 50 MCG/ACT nasal spray Boykin 2 (two) sprays into each nostril oncedaily gabapentin (Neurontin) 300 MG capsule Take 1 (one) capsule by mouth 3 times daily ERSTNM-FEQVEFUWS-NLO-C-HYAL PO Take 1 tablet by mouth 3 [...] Medicine Relationship: PCP - General [address] [facility] 2L DIV OF GEN INTERNAL MEDICINE [facility] [address] Next Steps: Follow up Coy Gómez MD Specialty: Neurological Surgery [address] [facility] 2L DIV OF NEUROSURGERY [facility] [address] Next Steps: Follow up Von Ray MD, 10/06/2022 at 4:11 PM documented in this encounter Discharge Instructions * Discharge Instructions* Von Ray MD - 10/06/2022 4:15 PM CDT Numb cream Neurosurgery Inpatient Discharge Instructions If you have any questions about the instructions below please call: [phone], ask for the Neurosurgery resident organizational development director. Diet: regular diet Wound care after surgery: [...] you were sent home on please call [phone], and ask for the Neurosurgery resident organizational development director. Do not sign important papers or make [...] clinic appointment information call Heather Oreilly at [phone]. - Also, you can call Outpatient Permaculture Contractor at [phone] 2) Please see your family doctor for [...] any questions about these instructions please call: [phone], ask for the Neurosurgery resident organizational development director. documented in this encounter Medications at Time [...] A DAY 60 capsule 11 02/22/2022 05/28/2023 AXSIXCN-HAFILYVWB-YRMV PO Take by mouth once daily 06/13/2023 [...] fluticasone propionate (FLONASE) 50 MCG/ACT nasal spray Boykin 2 (two) sprays into each nostril once daily 48 g 10/20/2021 11/25/2022 gabapentin (Neurontin) 300 MG capsuleIndications:Nicole stahl osteoarthritis of left hip Take 1 (one) capsule by mouth 3 times daily 90 capsule 5 04/06/2022 11/19/2022 ZOWCYR-ARTRFEMON-XVQ-C -HYAL PO Take 1 tablet by mouth [...] as of this encounter Progress Notes * Holemon, Shannon - 10/07/2022 12:12 PM CDT Discharge Permaculture Contractor received request from to arrange follow-up appointment for Patientwith Neurosurgery. This residential mortgage underwriter called [phone] and spoke with Zeny . Permaculture Contractor was able to obtain a follow-up appointment for Patient with CARE AIDE Merle Parker on 11/12/22 at 3:15pm. This residential mortgage underwriter called [phone]. Per patient verbalized understanding of future appointment. No further follow-up needs from outpatient scheduler indicated at this time. Shannon Kaye, Discharge Permaculture Contractor 10/08/2022 * Myra Cho - 10/07/2022 12:12 PM CDT Discharge Permaculture Contractor received request from Dr. Ray to reschedule follow-up appointment for Patient with Neurosurgery . This residential mortgage underwriter called [phone] and spoke with Juma. Permaculture Contractor was able to obtain follow-up appointment for Patient with Dr. Gómez on Friday January 13, 2023 at 10:00 am. No further follow-up needs from outpatient scheduler indicated at this time. Myra Coh, Discharge Permaculture Contractor 10/22/2022 * Ellen Huston RN - 10/07/2022 [...] 7:03 AM CDT Neurosurgery Progress Note Elizabeth Hogan 10/07/22 Hospital Day: 5 Subjective: Patient is a 62 year old female with metastatic??high risk papillary thyroid cancer??(tF0yR8yWd - IVb) s/p??salvage total thyroidectomy and neck [...] mg, Oral, BID fish oil/omega-3 fatty acids (Promega;Cardi-Brantingham 3) capsule 1,000 mg, Oral, TID WC [...] place, time) Motor: ?? Deltoid Bicep Tricep Informatics Analyst Wrist Ext Finger ext Hip Flexor [...] for pain control PT: home with HH Hepairn SQ for VTE ppx Pepcid for GI ppx Advance diet as tolerated Activity as tolerated Likely dc today Von Ray MD 7:03 AM 10/07/22 To reach Neurosurgery for questions: From 7am to 5pm please call the [facility] for Neurosurgery From 5pm to 7am please refer to [employer] ([employer]) to reach the resident organizational development director (changes daily) Secure chat can be used [...] patient's preference is to stay within the [facility] and its affiliates.: Yes Comments: 62 yoF admitted 10/02 for elective surgery for treatment of 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 / POSTOP EVALUATION NOTE. Procedure: C2-T2 fusion and decompression C3-C7 and resection extramedullary spine tumor [facility] referrals pending. Payer/Plan Subscriber Name Rel Member # Group # [employer] * EDISONELIZABETHALEXSANDRA Bowen [id number] ATT CLAIMS DEPARTMENT, [address] Continued Care and Services - Admitted Since 10/02/2022 Home Medical Care Service Provider Request Status Selected Services Address Phone Fax Patient Preferred [facility] Pending - Request Sent N/A [address], [place] [address] [phone] -- [facility] Pending - Request Sent N/A [address] [facility] [address] [phone] -- [facility] Pending - Request Sent N/A [address], [facility] [phone] -- [facility] (formerly [facility]) Pending - Request Sent N/A [address] [facility] [address], [place] [address] -- [facility] - HH Pending - Request Sent N/A [address], [facility] [address] -- [facility] Pending - Request Sent N/A [address], [address], [place] [phone] -- Lives with: Spouse Physical Limitations: Wheelchair Bound 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 Met with patient at bedside Family Support (name and phone): Extended Emergency Contact Information Primary Emergency Contact: Boogie Hogan Address: [facility] [place], [place] [id number] [place] [address] Relation: Spouse Secondary Emergency Contact: isaac jules Address: [address] [place] [address] Mobile Relation: Sister Patient or volunteer patient representative requests care coordination reach out to family or caregiver listed above regarding discharge planning and at time of discharge? No Patient/Family provided with list of resources? No Preferred Provider / High Quality Network List given?: No Reason for provider choice: Pt. choice - Pt. choice Equipment at Home: Walker-2 Wheeled List DME pt. requires but does not have.: None Aircraft Maintenance Manager Referral: No Will continue to follow. For any questions or needs please contact: Clinical Trial Associate Name/Phone number: Torsten Lynn RN [phone] * [...] Music Therapist Sacha Ngo visited patient in [facility] room. Patient was observed sitting up in chair, alert and oriented. Patient stated that she loves music. During interventions, patient closed her eyes, breathed slowly and deeply, and mouthed familiar lyrics. At conclusion of session, no nonverbal indicators of distress observed, and patient reported increased feelings of relaxation and calm. Sacha Ngo, [facility], [place] 10/06/2022 10:31 AM * Yaneth Camejo RN [...] desired activity. Outcome: Progressing * Fabio Sheikh APRN-SARAH - 10/06/2022 1:46 AM CDT Neurosurgery Progress Note Elizabeth Hogan 10/06/22 Hospital Day: 4 Subjective: Patient is a 62 year old female with metastatic??high risk papillary thyroid cancer??(jQ3sT9aZh - IVb) s/p??salvage total thyroidectomy and neck [...] Oral, BID ?? fish oil/omega-3 fatty acids (Promega;Cardi-Brantingham 3) capsule 1,000 mg, Oral, TID WC [...] place, time) Motor: ?? Deltoid Bicep Tricep Informatics Analyst Wrist Ext Finger ext Hip Flexor [...] Percocet for pain control PT: home with Karin SQ for VTE ppx Pepcid for GI ppx SPL evaluation- mild aspiration risk Advance diet as tolerated Activity as tolerated Fabio Sheikh, DENSITY CONTROL PUNCHER-CURED MEATS SUPERVISOR 1:46 AM 10/06/22 To reach Neurosurgery for questions: From 7am to 5pm please call the [facility] for Neurosurgery From 5pm to 7am please refer to [employer] ([employer]) to reach the resident organizational development director (changes daily) Secure chat can be used for non-urgent issues only, please expect a reasonable amount of time for responses * Natasha Bar, PT - 10/05/2022 4:23 PM CDT [facility] Physical Medicine and Rehabilitation Physical Therapy Progress Note Patient: Elizabeth Hogan [facility] Record Number: [id number] Date of : 1960 Age: [age] year [...] will ascend/descent 3 steps with minimal assist Radio Script Writer Goal(s): Patient to be independent with functional [...] on, with call light within reach, with RN, Pravin aware, with therapy cues visible on white board, BLE's elevated with pillow under legs to float heels, side tray in front of pt fordinner coming soon. * Alli Marrufo SLP - 10/05/2022 3:20 PM CDT [facility] Physical Medicine and Rehabilitation Bedside Swallow Assessment Patient: Elizaebth Hogan [facility] Record Number: [id number] Date of : 1960 Age: [age] year [...] Impression - Pharyngeal: Mild Education/Interventions: While performing SERVICER COIN MACHINES, Patient was instructed in: goals of treatment [...] precautions., Patient will follow recommended swallowing strategies. Detention Goal (s): Patient to be independent/baseline with functional mobility and self care and be able to safely discharge to prior level of care. Alli Schmid M.A., [facility])-SERVICER COIN MACHINES Speech Language Pathologist [phone] * Pravin Dennis [...] 11:51 PM CDT Neurosurgery Progress Note Elizabeth Hogan 10/04/22 Hospital Day: 2 Subjective: Patient is a 62 year old female metastatic high risk papillary thyroid cancer (aN2mE7kGp - IVb) s/psalvage total thyroidectomy??and neck dissection [...] Input/Output: 10/03 0701 - 10/04 0700 In: 2798.5 [P.O.:625; I.V.:1908.5] Out: 2555 [...] mg, Oral, BID fish oil/omega-3 fatty acids (Promega;Cardi-Brantingham 3) capsule 1,000 mg, Oral, TID WC [...] preop exam (shownbelow) ? Deltoid Bicep Tricep Informatics Analyst Wrist Ext Finger ext Hip Flexor [...] tolerated - Activity as tolerated - DC EMTS today - SPL evaluation - Still has [...] 8:53 AM CDT Neurosurgery Progress Note Elizabeth Hogan 10/04/22 Hospital Day: 2 Subjective: Patient is a 62 year old female metastatic high risk papillary thyroid cancer (zJ9oF8zUe - IVb) s/psalvage total thyroidectomy??and neck dissection [...] mg, Oral, BID fish oil/omega-3 fatty acids (Promega;Cardi-Brantingham 3) capsule 1,000 mg, Oral, TID WC [...] preop exam (shownbelow) ? Deltoid Bicep Tricep Informatics Analyst Wrist Ext Finger ext Hip Flexor [...] Berg MD 1:22 AM 10/04/22 * Boni English PT - 10/03/2022 9:37 AM CDT [facility] Physical Medicine and Rehabilitation Physical Therapy Initial Evaluation Note Patient: Elizabeth Hogan [facility] Record Number: [id number] Date of : 1960 Age: [age] year [...] adult female found lying in bed in [facility] LDAs: IV's: Peripheral line and Drains Edema: [...] will ascend/descent 3 steps with minimal assist Radio Script Writer Goal(s): Patient to be independent with functional [...] bed, with call light within reach, with Tiana FERRIS aware. * Tiana Blue RN - 10/03/2022 7:18 [...] 5:41 AM CDT Neurosurgery Progress Note Elizabeth Hogan 10/03/22 Hospital Day: 1 Subjective: Patient is a 62 year old female metastatic high risk papillary thyroid cancer (iK5gP5fRn - IVb) s/psalvage total thyroidectomy??and neck dissection [...] Oral, BID ?? fish oil/omega-3 fatty acids (Promega;Cardi-Brantingham 3) capsule 1,000 mg, Oral, TID WC [...] preop exam (shownbelow) ? Deltoid Bicep Tricep Informatics Analyst Wrist Ext Finger ext Hip Flexor [...] CDT NEUROSURGERY POST-OP NOTE : SUBJECTIVE Elizabeth Woody Hogan is POD 0 s/p C2-T2 fusion and [...] 10/02/22 1323 -- 75 -- 131/83 -- 10/02/22 1320 -- 73 -- 163/85 -- 10/02/22 [...] 10/02/22 1130 -- 81 12 136/88 -- 10/02/22 1129 -- 82 21 -- -- 10/02/22 [...] preop exam (shownbelow) ?? Deltoid Bicep Tricep Informatics Analyst Wrist Ext Finger ext Hip Flexor Quad Hamstring Tib Ant Gastroc EHL Right 5 5 5 5 5 5 5 5 5 5 5 5 Left 0 1 3 4+ 4+ 4+ Antalgic but 4+ 5 5 5 5 5 Imaging: none to review ASSESSMENT/PLAN: Elizabeth Hogan is POD 0 s/p C2-T2 fusion and [...] documented in this encounter H&P Notes * Carloz Corea MD - 10/02/2022 6:14 AM CDT NEUROSURGERY Preop H&P Chief Complaint (CC): HISTORY OF PRESENT ILLNESS (HPI): Elizabeth Hogan is a 62 year old female with metastatic high risk papillary thyroid cancer (uX0sO5xHf - IVb) s/p salvage total thyroidectomy??requiring??sacrifice of [...] ??? Lymphadenopathy of head and neck region [facility] NEURO SPINAL SURGERY HIGH RISK VARIABLES Metastatic [...] ??? calcitriol (Rocaltrol) 0.5 MCG capsule ??? YPAEWNH-JKQRYZNVU-TXCU PO ??? celecoxib (CELEBREX) 200 MG capsule ??? cetirizine (ZYRTEC) 10 MG tablet ??? clonazePAM (KLONOPIN) 0.5 MG tablet ??? cyclobenzaprine (Flexeril) 5 MG tablet ??? famotidine (PEPCID) 20 MG tablet ??? fish oil/omega-3 fatty acids (PROMEGA;CARDI-OMEGA 3) 1000 MG capsule ??? fluticasone propionate (FLONASE) 50 MCG/ACT nasal spray ??? gabapentin (Neurontin) 300 MG capsule ??? VEYHDE-XVSTJGZJC-JZN-C-HYAL PO ??? levothyroxine (Synthroid) 112 MCG tablet [...] alert, appropriate Neuro: a Deltoid Bicep Tricep Informatics Analyst Wrist Ext Finger ext Hip Flexor [...] DATE/TIME OF EXAM: 08/21/2022 3:59 PM, LOCATION [facility] INDICATION: C73: Thyroid cancer (CMS/HCC) E89.0: Postoperative [...] compression. No demonstrated cord edema. Assessment: Elizabeth Hogan is a 62 year old female with metastatic high risk papillary thyroid cancer (dC1tY4lZc - IVb) s/p salvage total thyroidectomy??requiring??sacrifice of [...] you for this referral. Bina El RN [facility] hoof trimmer Liaison [facility] [phone] * Ananya El RN - 10/07/2022 12:12 PM CDT VERIFICATION HAS FINISHED & REFERRAL COMPLETED. Bina El RN [facility] hoof trimmer Liaison [facility] [phone] * Darian Carrillo MSW - 10/06/2022 3:39 PM CDTAssociated Order(s): IP CONSULT TO AIRPLANE ELECTRICIAN SW aware this pt's plan is for home health. CM is aware of this discharge plan. SW to continue to follow for any other needs. MARIO Machuca 10/06/2022 * Dariela Ramirez RD/ERLIN - 10/03/2022 3:39 PM CDTAssociated Order(s): IP CONSULT TO NUTRITIONAL SERV Initial Nutrition Assessment Brief Synopsis: Patient is at Nutrition Risk; Specific criteria can be found in assessment below Nutrition Plan: Regular diet order +Ensure Plus High Protein (1.5 kcal) TID w/ meals (350 kcal, 20 grams pro, 40 grams CHO) Recommendations to Physician: Consult SERVICER COIN MACHINES d/t pt reporting having difficulty with swallowing [...] denies N/V/D/C at this time. 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 Pt receiving daily senna. Labs reviewed; Ca (7.9). RD will continue to follow. Assessment: Med/Surg History and Clinical Diagnoses: 62 year old female metastatic high risk papillary thyroid cancer (dV6gG8mIo - IVb) s/p salvage total thyroidectomy and [...] Pain affecting intake: No Estimated Needs: KCAL: 7496-7167 (25-30 kcal/kg ABW) Protein (g): 76-127 (1.2-2.0 [...] 20 mg ??? fish oil/omega-3 fatty acids (Promega;Cardi-Brantingham 3) capsule 1,000 mg ??? fluticasone propionate (Flonase) nasal spray 2 spray ??? gabapentin (Neurontin) capsule 300 mg ??? heparin injection 5,000 Units ??? hydrALAZINE (Apresoline) injection 10 mg ??? HYDROmorphone (Dilaudid) 10 mg/50 mL EMTS ??? labetalol (Normodyne; Trandate) injection 10 mg [...] resection extramedullary spine tumor Patient Name: Elizabeth Hogan Date of Service: 10/02/2022 Pre-Op Diagnosis: spine tumor Post-Op Diagnosis: extramedullary cervical spine tumor Surgeon(s) and Role: * Coy Gómez MD - Primary * Carloz Corea MD - Resident - Assisting * Brady Guerrero MD - Resident - Assisting Genetic Scientist(s): none Anesthesia Type: general ETT Complications: none [...] Implant Name Type Inv. Item Serial No. Primary Health Care Nurse Lot No. LRB No. Used Action Savage Bone Void Ca Slf Stimulan Savage Bone Void 10Cc 20Cc Ca Slf Stimulan Biocompstes [id number] N/A 1 Implanted Savage Bone Void 10Ml [...] 7:30 AM CDT OPERATIVE REPORT NAME: Elizabeth Hogan : 1960 CSN: [id number] DATE OF SERVICE: 10/02/22 PROCEDURE PERFORMED: 1. [...] General endotracheal anesthesia INDICATIONS FOR PROCEDURE: Elizabeth Hogan??is a 61 year old??female??with aggressive PTC (sR1yM2s) s/p thyroidectomy, tracheal resection/reanastamosis, bilateral neck dissections [...] as possible and she was consented for . PROCEDURE IN DETAIL: Following a pre-operative checklist patient was taken to theatre and general anesthesia achieved. Patient was placed in a prone position in pins on a Korey open top table. A linear incision in the midline was marked in order to give us access to the appropriate anatomy and infiltrated with local anesthetic with epinephrine. [place] were inserted for somatic somatosensory evoked potential [...] for stereotactic screw insertion. Very briefly a forestry pilot hole was drilled in the left standard entry point for pars screw at C2. A stereotactic drill was used to create a forestry pilot hole into the pars followed by stereotactic And stereotactic screw insertion. After removing every instrument the forestry pilot hole was palpated in order to [...] Implant Name Type Inv. Item Serial No. Primary Health Care Nurse Lot No. LRB No. Used Action Savage Bone Void Ca Slf Stimulan Savage Bone Void 10Cc 20Cc Ca Slf Stimulan Biocompstes [id number] N/A 1 Implanted Savage Bone Void 10Ml [...] st Contact Info) Description 07/25/2024 10:00 AM ELECTRONIC SYSTEMS TECHNICIAN Office Visit [facility] Endocr[facility] [address] [place] [phone] Yosi Bustamante MD [address] [place] [address] [place] [address] 07/26/2024 10:00 AM ELECTRONIC SYSTEMS TECHNICIAN Appointment [facility] [place] [facility] [address] [place] [phone] Neri Delgado MD [address] [place] [address] 07/26/2024 10:00 AM ELECTRONIC SYSTEMS TECHNICIAN Office Visit [facility] [address], [place] [address] Myra Farmer, SERVICER COIN MACHINES [address] [place] [address] [place] [phone] 07/26/2024 11:15 AM ELECTRONIC SYSTEMS TECHNICIAN Office Visit [facility] - ENT [address] [place] [phone] Neri Delgado MD [address] [place] [phone] 08/02/2024 2:20 PM ELECTRONIC SYSTEMS TECHNICIAN Appointment [facility] [place] [facility] [address] [place] [phone] 08/02/2024 3:00 PM ELECTRONIC SYSTEMS TECHNICIAN Office Visit [facility] - Hematology/Oncology [address] [place] [phone] Remi Beckett MD [address] [place] [phone] 08/18/2024 1:45 PM ELECTRONIC SYSTEMS TECHNICIAN Office Visit [facility] - ENT [address] [place] [phone] Neri Delgado MD [address] [place] [address] Scheduled Referrals Name Type Priority Associated Diagnoses [...] PRONE, C-ARM, O-ARM Kinevo scope NEUROMONITORING (SSEP,MEP,EMG), ABA English--Samir notified mk 09/28 TYPE + SCREEN PANEL MARAL 10/02/2022 6 :41 AM CDT Preop examination documented in this encounter Results * CARDIAC EKG ORDER (10/09/2022 12:58 PM CDT) Narrative 10/09/2022 12:58 PM CDT Ordered by an unspecified provider. Scanned Document CARDIAC SERVICES ORD ERABLES * (ABNORMAL) PHOSPHORUS BLOOD (10/07/2022 12:12 AM CDT) Phosphorus 5.3(H) 2.9 - 5.1 mg/dL 10/07/2022 12:[address] [facility] Blood BLOOD SPECIMEN / Unknown Lab Venipuncture / Unknown 10/07/2022 12:12 AM CDT 10/07/2022 12:19 AM CDT Coy Gómez MD LAB - CHEMISTRY [facility] [address] [address], [facility] [phone] * MAGNESIUM BLOOD (10/07/2022 12:12 AM CDT) Magnesium 1.7 1.6 - 2.6 mg/dL 10/07/2022 12:[address] [facility] Blood BLOOD SPECIMEN / Unknown Lab Venipuncture / Unknown 10/07/2022 12:12 AM CDT 10/07/2022 12:19 AM CDT Coy Gómez MD LAB - CHEMISTRY ASH [facility] Organization Address City/State/ZIP Co de Phone Number [facility] [address] [place] [address], [facility] [phone] * (ABNORMAL) CBC W AUTO DIFFERENTIAL (10/07/2022 12:12 AM CDT) WBC 8.1 3.5 - 10.5 10? 3 /uL 10/07/2022 1:08 AM [facility] RBC 3.03(L) 3.80 - 5.20 10? 6 /uL 10/07/2022 1:08 AM [facility] Hemoglobin 9.2(L) 12.0 - 15.6 g/dL 10/07/2022 1:08 AM [facility] Hematocrit 27.3(L) 35.0 - 45.0 % 10/07/2022 1:08 AM [facility] MCV 90.1 80.7 - 98.3 fL 10/07/2022 1:08 AM [facility] MCH 30.4 26.7 - 34.0 pg 10/07/2022 1:08 AM [facility] MCHC 33.7 30.8 - 35.9 g/dL 10/07/2022 1:08 AM [facility] RDW-SD 43.9 36.0 - 50.0 fL 10/07/2022 1:08 AM [facility] RDW-CV 13.4 11.2 - 14.8 % 10/07/2022 1:08 AM [facility] Platelet Count 263 150 - 400 10? 3 /uL 10/07/2022 1:08 AM [facility] MPV 10.3 9.4 - 12.9 fL 10/07/2022 1:08 AM [facility] nRBC Absolute 0.00 0 10? 3 /uL 10/07/2022 1:08 AM [facility] nRBC Auto 0.0 0 /100 WBC 10/07/2022 1:08 AM [facility] Neutrophils % 59.0 35.0 - 70.0 % 10/07/2022 1:08 AM [facility] Lymphocytes % 25.1 20.0 - 43.0 % 10/07/2022 1:08 AM [facility] Monocytes % 12.4 5.0 - 13.0 % 10/07/2022 1:08 AM [facility] Eosinophils % 2.4 0.0 - 6.0 % 10/07/2022 1:08 AM [facility] Basophil % 0.7 0.0 - 2.0 % 10/07/2022 1:08 AM [facility] Neutrophils Absolute 4.75 1.60 - 7.00 10? 3 /uL 10/07/2022 1:08 AM [facility] Lymphocyte Absolute 2.02 1.10 - 3.90 10? 3 /uL 10/07/2022 1:08 AM [facility] Monocytes Absolute 1.00 0.26 - 1.07 10? 3 /uL 10/07/2022 1:08 AM [facility] Eosinophils Absolute 0.19 0.00 - 0.47 10? 3 /uL 10/07/2022 1:08 AM [facility] Basophils Absolute 0.06 0.00 - 0.08 10? 3 /uL 10/07/2022 1:08 AM [facility] Immature Granulocytes % 0.4 0.0 - 1.0 % 10/07/2022 1:08 AM [facility] Immature Granulocytes Absolute 0.03 10/07/2022 1:08 AM [facility] Blood BLOOD SPECIMEN / Unknown Lab Venipuncture / Unknown 10/07/2022 12:12 AM CDT 10/07/2022 12:19 AM CDT Coy Gómez MD LAB - HEMATOLOGY ORD ERABLES [facility] [address] [place] [address], [facility] [phone] * (ABNORMAL) BASIC METABOLIC PANEL (CALCIUM TOTAL) (10/07/2022 12:12 AM CDT) BUN 15 7 - 26 mg/dL 10/07/2022 12:43 AM [facility] Creatinine 0.56 0.56 - 0.96 mg/dL 10/07/2022 12:43 AM [facility] Sodium 143 136 - 145 mmol/L 10/07/2022 12:43 AM [facility] Potassium 3.8 3.5 - 4.5 mmol/L 10/07/2022 12:43 AM [facility] Chloride 106 98 - 107 mmol/L 10/07/2022 12:43 AM [facility] CO2 25 22 - 29 mmol/L 10/07/2022 12:43 AM [facility] Glucose 92 70 - 115 mg/dL 10/07/2022 12:43 AM [facility] Calcium 9.0 8.4 - 10.2 mg/dL 10/07/2022 12:43 AM [facility] Anion Gap 16 8 - 18 10/07/2022 12:43 AM [facility] BUN/Creatinine Ratio 27(H) 7 - 23 10/07/2022 12:43 AM [facility] Osmolality Calculated 296 270 - 300 mOsm/kg 10/07/2022 12:43 AM [facility] eGFR by CKD-EPI >90 >=90 mL/min/1.7 3 m2 10/07/2022 12:43 AM [facility] Blood BLOOD SPECIMEN / Unknown Lab Venipuncture / Unknown 10/07/2022 12:12 AM CDT 10/07/2022 12:19 AM CDT Coy Gómez MD LAB - CHEMISTRY ASH [facility] Organization Address City/State/ZIP Co de Phone Number [facility] [address] [place] [address], [facility] [phone] * PREPARE (CROSSMATCH) RBC UNIT(S), 2 Units (10/06/2022 1:17 AM CDT) Pathologist [facility] Unit Description AS1 LR PRBC [facility] BLOOD BANK LAB Unit ABO B [facility] BLOOD [facility] LAB Unit Rh POS [facility] BLOOD [facility] LAB Product Number R02 [facility] B LOOD BANK LAB Unit Donor # [id number] [facility] BLOOD [facility] LAB Unit Status released [facility] BLOO D BANK LAB Product Code [id number] [facility] BLO OD BANK LAB Blood Type Barcode 7300 [facility] BLOOD [facility] LAB Expiration Date [id number] S BLOOD BANK LAB Unit Description -1 LR PRBC LV [facility] BLOOD [facility] LAB Unit ABO B [facility] BLOOD [facility] LAB Unit Rh POS [facility] BLOOD [facility] LAB Product [facility] R52 [facility] B LOOD BANK LAB Unit Donor # [id number] [facility] BLOOD B[facility] LAB Unit Status released [facility] BLOO D BANK LAB Product Code [id number] [facility] BLO OD BANK LAB Blood Type Barcode 7300 [facility] BLOOD [facility] LAB Expiration Date [id number] S BLOOD BANK LAB Blood Bank BLOOD SPECIMEN / Unknown 10/02/2022 6:49 AM CDT Coy Gómez MD LAB - BLOOD BANK ORD ERABLES [facility] BLOOD [facility] LAB [address] [place] [address], [facility] [phone] * PHOSPHORUS BLOOD (10/05/2022 10:34 PM CDT) Phosphorus 4.6 2.9 - 5.1 mg/dL 10/05/2022 11:[address] [facility] Blood BLOOD SPECIMEN / Unknown Lab Venipuncture / Unknown 10/05/2022 10:34 PM CDT 10/05/2022 10:39 PM CDT Coy Gómez MD LAB - CHEMISTRY ORDSrinivas [facility] [address] [place] [address], [facility] [phone] * MAGNESIUM BLOOD (10/05/2022 10:34 PM CDT) Magnesium 1.6 1.6 - 2.6 mg/dL 10/05/2022 11:[address] [facility] Blood BLOOD SPECIMEN / Unknown Lab Venipuncture / Unknown 10/05/2022 10:34 PM CDT 10/05/2022 10:39 PM CDT Coy Gómez MD LAB - CHEMISTRY [facility] [employer] Organization Address City/State/ZIP Co de Phone Number [facility] [address] [place] [address], [facility] [phone] * (ABNORMAL) CBC W AUTO DIFFERENTIAL (10/05/2022 10:34 PM CDT) Pathologist [facility] WBC 8.9 3.5 - 10.5 10? 3 /uL 10/05/2022 11:09 PM [facility] RBC 3.18(L) 3.80 - 5.20 10? 6 /uL 10/05/2022 11:09 PM [facility] Hemoglobin 9.7(L) 12.0 - 15.6 g/dL 10/05/2022 11:09 PM [facility] Hematocrit 29.2(L) 35.0 - 45.0 % 10/05/2022 11:09 PM [facility] MCV 91.8 80.7 - 98.3 fL 10/05/2022 11:09 PM [facility] MCH 30.5 26.7 - 34.0 pg 10/05/2022 11:09 PM [facility] MCHC 33.2 30.8 - 35.9 g/dL 10/05/2022 11:09 PM [facility] RDW-SD 45.3 36.0 - 50.0 fL 10/05/2022 11:09 PM [facility] RDW-CV 13.3 11.2 - 14.8 % 10/05/2022 11:09 PM [facility] Platelet Count 239 150 - 400 10? 3 /uL 10/05/2022 11:09 PM [facility] MPV 10.3 9.4 - 12.9 fL 10/05/2022 11:09 PM [facility] nRBC Absolute 0.00 0 10? 3 /uL 10/05/2022 11:09 PM [facility] nRBC Auto 0.0 0 /100 WBC 10/05/2022 11:09 PM [facility] Neutrophils % 67.4 35.0 - 70.0 % 10/05/2022 11:09 PM [facility] Lymphocytes % 18.0(L) 20.0 - 43.0 % 10/05/2022 11:09 PM [facility] Monocytes % 11.6 5.0 - 13.0 % 10/05/2022 11:09 PM [facility] Eosinophils % 1.8 0.0 - 6.0 % 10/05/2022 11:09 PM [facility] Basophil % 0.6 0.0 - 2.0 % 10/05/2022 11:09 PM [facility] Neutrophils Absolute 6.03 1.60 - 7.00 10? 3 /uL 10/05/2022 11:09 PM [facility] Lymphocyte Absolute 1.61 1.10 - 3.90 10? 3 /uL 10/05/2022 11:09 PM [facility] Monocytes Absolute 1.04 0.26 - 1.07 10? 3 /uL 10/05/2022 11:09 PM [facility] Eosinophils Absolute 0.16 0.00 - 0.47 10? 3 /uL 10/05/2022 11:09 PM [facility] Basophils Absolute 0.05 0.00 - 0.08 10? 3 /uL 10/05/2022 11:09 PM [facility] Immature Granulocytes % 0.6 0.0 - 1.0 % 10/05/2022 11:09 PM [facility] Immature Granulocytes Absolute 0.05 10/05/2022 11:09 PM [facility] Blood BLOOD SPECIMEN / Unknown Lab Venipuncture / Unknown 10/05/2022 10:34 PM CDT 10/05/2022 10:39 PM T Coy Gómez MD LAB - HEMATOLOGY ORD ERABLES [facility] [address] [place] [address], [facility] [phone] * (ABNORMAL) BASIC METABOLIC PANEL (CALCIUM TOTAL) (10/05/2022 10:34 PM CDT) Pathologist [facility] BUN 19 7 - 26 mg/dL 10/05/2022 11:04 PM [facility] Creatinine 0.53(L) 0.56 - 0.96 mg/dL 10/05/2022 11:04 PM [facility] Sodium 140 136 - 145 mmol/L 10/05/2022 11:04 PM [facility] Potassium 3.7 3.5 - 4.5 mmol/L 10/05/2022 11:04 PM [facility] Chloride 106 98 - 107 mmol/L 10/05/2022 11:04 PM [facility] CO2 25 22 - 29 mmol/L 10/05/2022 11:04 PM [facility] Glucose 118(H) 70 - 115 mg/dL 10/05/2022 11:04 PM [facility] Calcium 8.6 8.4 - 10.2 mg/dL 10/05/2022 11:04 PM [facility] Anion Gap 13 8 - 18 10/05/2022 11:04 PM [facility] BUN/Creatinine Ratio 36(H) 7 - 23 10/05/2022 11:04 PM [facility] Osmolality Calculated 293 270 - 300 mOsm/kg 10/05/2022 11:04 PM [facility] eGFR by CKD-EPI >90 >=90 mL/min/1.7 3 m2 10/05/2022 11:04 PM [facility] Blood BLOOD SPECIMEN / Unknown Lab Venipuncture / Unknown 10/05/2022 10:34 PM CDT 10/05/2022 10:39 PM CDT Coy Gómez MD LAB - CHEMISTRY ASH WE[facility]ER [facility] Organization Address City/State/ZIP Co de Phone Number [facility] [address] [place] [address], [facility] [phone] * PHOSPHORUS BLOOD (10/05/2022 4:36 AM CDT) Pathologist [facility] Phosphorus 3.6 2.9 - 5.1 mg/dL 10/05/2022 7:[address] [facility] Blood BLOOD SPECIMEN / Unknown Lab Venipuncture / Unknown 10/05/2022 4:36 AM CDT 10/05/2022 6:45 AM CDT Coy Gómez MD LAB - CHEMISTRY ASH WE[facility]ER Performing Organization Address City/[facility]/ZIP Co de Phone Number [address] [address], [facility] [phone] * MAGNESIUM BLOOD (10/05/2022 4:36 AM CDT) Magnesium 1.7 1.6 - 2.6 mg/dL 10/05/2022 7:[address] [facility] Blood BLOOD SPECIMEN / Unknown Lab Venipuncture / Unknown 10/05/2022 4:36 AM CDT 10/05/2022 6:45 AM CDT Coy Gómez MD LAB - CHEMISTRY ASH WE[employer]ER [address] [address], [facility] [phone] * (ABNORMAL) CBC W AUTO DIFFERENTIAL (10/05/2022 4:36 AM CDT) WBC 9.3 3.5 - 10.5 10? 3 /uL 10/05/2022 6:55 AM [facility] RBC 3.32(L) 3.80 - 5.20 10? 6 /uL 10/05/2022 6:55 AM [facility] Hemoglobin 10.2(L) 12.0 - 15.6 g/dL 10/05/2022 6:55 AM [facility] Hematocrit 30.5(L) 35.0 - 45.0 % 10/05/2022 6:55 AM [facility] MCV 91.9 80.7 - 98.3 fL 10/05/2022 6:[address] [facility] MCH 30.7 26.7 - 34.0 pg 10/05/2022 6:55 AM [facility] MCHC 33.4 30.8 - 35.9 g/dL 10/05/2022 6:55 AM [facility] RDW-SD 45.2 36.0 - 50.0 fL 10/05/2022 6:55 AM [facility] RDW-CV 13.5 11.2 - 14.8 % 10/05/2022 6:55 AM [facility] Platelet Count 239 150 - 400 10? 3 /uL 10/05/2022 6:55 AM [facility] MPV 10.9 9.4 - 12.9 fL 10/05/2022 6:55 AM [facility] nRBC Absolute 0.00 0 10? 3 /uL 10/05/2022 6:55 AM [facility] nRBC Auto 0.0 0 /100 WBC 10/05/2022 6:55 AM [facility] Neutrophils % 68.2 35.0 - 70.0 % 10/05/2022 6:55 AM [facility] Lymphocytes % 19.3(L) 20.0 - 43.0 % 10/05/2022 6:55 AM [facility] Monocytes % 10.3 5.0 - 13.0 % 10/05/2022 6:55 AM [facility] Eosinophils % 1.4 0.0 - 6.0 % 10/05/2022 6:55 AM [facility] Basophil % 0.5 0.0 - 2.0 % 10/05/2022 6:55 AM [facility] Neutrophils Absolute 6.32 1.60 - 7.00 10? 3 /uL 10/05/2022 6:55 AM [facility] Lymphocyte Absolute 1.79 1.10 - 3.90 10? 3 /uL 10/05/2022 6:55 AM [facility] Monocytes Absolute 0.96 0.26 - 1.07 10? 3 /uL 10/05/2022 6:55 AM [facility] Eosinophils Absolute 0.13 0.00 - 0.47 10? 3 /uL 10/05/2022 6:55 AM [facility] Basophils Absolute 0.05 0.00 - 0.08 10? 3 /uL 10/05/2022 6:[address] [facility] Immature Granulocytes % 0.3 0.0 - 1.0 % 10/05/2022 6:[address] [facility] Immature Granulocytes Absolute 0.03 10/05/2022 6:55 AM [facility] Blood BLOOD SPECIMEN / Unknown Lab Venipuncture / Unknown 10/05/2022 4:36 AM CDT 10/05/2022 6:47 AM CDT Coy Gómez MD LAB - HEMATOLOGY ORD ERABLES [facility] [address] [place] [address], [facility] [phone] * (ABNORMAL) BASIC METABOLIC PANEL (CALCIUM TOTAL) (10/05/2022 4:36 AM CDT) BUN 10 7 - 26 mg/dL 10/05/2022 7:15 AM [facility] Creatinine 0.59 0.56 - 0.96 mg/dL 10/05/2022 7:15 AM [facility] Sodium 143 136 - 145 mmol/L 10/05/2022 7:15 AM [facility] Potassium 3.7 3.5 - 4.5 mmol/L 10/05/2022 7:15 AM [facility] Chloride 103 98 - 107 mmol/L 10/05/2022 7:15 AM [facility] CO2 25 22 - 29 mmol/L 10/05/2022 7:15 AM [facility] Glucose 90 70 - 115 mg/dL 10/05/2022 7:15 AM [facility] Calcium 8.3(L) 8.4 - 10.2 mg/dL 10/05/2022 7:15 AM [facility] Anion Gap 19(H) 8 - 18 10/05/2022 7:15 AM [facility] BUN/Creatinine Ratio 17 7 - 23 10/05/2022 7:15 AM [facility] Osmolality Calculated 295 270 - 300 mOsm/kg 10/05/2022 7:[address] [facility] eGFR by CKD-EPI >90 >=90 mL/min/1.7 3 m2 10/05/2022 7:[address] [facility] Blood BLOOD SPECIMEN / Unknown Lab Venipuncture / Unknown 10/05/2022 4:36 AM CDT 10/05/2022 6:45 AM CDT oCy Gómez MD LAB - CHEMISTRY ASH WEAVER [facility] [address] [place] [address], [facility] [phone] * XR CERVICAL SPINE 2 OR 3VW [...] malalignment. Report dictated by Kalin Kumar M.D. (resident doctor) IJoshua DO have personally reviewed and interpreted this examination/study. > Interpreting Provider: Joshua Gaytan DO on 10/04/2022 12:48 PM Narrative 10/04/2022 12:48 PM CDT PROCEDURE: ??XR CERVICAL SPINE 2 OR 3VW, XR THORACIC SPINE 3VW, DATE/TIME OF EXAM: ??10/04/2022 9:41 AM, LOCATION ??[facility] INDICATION: C79.51: Cancer, metastatic to bone (CMS/HCC) ADDITIONAL CLINICAL INFORMATION: Ordering Provider Reason For Exam: ??post op (accession [id number]), s/p PSIF (accession [id number]) COMPARISON: None. TECHNIQUE: AP and lateral views [...] visualized heart is normal. Procedure Note Joshua Gaytan, DO - 10/04/2022 PROCEDURE: XR CERVICAL SPINE 2 OR 3VW, XR THORACIC SPINE 3VW, DATE/TIMEOF EXAM: 10/04/2022 9:41 AM, LOCATION [facility] INDICATION: C79.51: Cancer, metastatic to bone (CMS/HCC) ADDITIONAL CLINICAL INFORMATION: Ordering Provider Reason For Exam: post op (accession [id number]), s/pPSIF (accession [id number]) COMPARISON: None. TECHNIQUE: AP and lateral views [...] 1.Postsurgical changes from posterior C2-T2 fusion and C3-Y1ajgeojncagkmd are present with paired rods and interpedicular screws. The surgical hardware appears intact. 2.No evidence of cervical spine fracture or malalignment. Report dictated by Kalin Kumar M.D. (resident doctor) Joshua Mckeon DO have personally reviewed and [...] malalignment. Report dictated by Kalin Kumar M.D. (resident doctor) Joshua Mckeon DO have personally reviewed and interpreted this examination/study. > Interpreting Provider: Joshua Gaytan DO on 10/04/2022 12:48 PM Narrative 10/04/2022 12:48 PM CDT PROCEDURE: ??XR CERVICAL SPINE 2 OR 3VW, XR THORACIC SPINE 3VW, DATE/TIME OF EXAM: ??10/04/2022 9:41 AM, LOCATION ??[facility] INDICATION: C79.51: Cancer, metastatic to bone (CMS/HCC) ADDITIONAL CLINICAL INFORMATION: Ordering Provider Reason For Exam: ??post op (accession [id number]), s/p PSIF (accession [id number]) COMPARISON: None. TECHNIQUE: AP and lateral views [...] 3VW, DATE/TIMEOF EXAM: 10/04/2022 9:41 AM, LOCATION [facility] INDICATION: C79.51: Cancer, metastatic to bone (CMS/HCC) ADDITIONAL CLINICAL INFORMATION: Ordering Provider Reason For Exam: post op (accession [id number]), s/pPSIF (accession [id number]) COMPARISON: None. TECHNIQUE: AP and lateral views [...] 1.Postsurgical changes from posterior C2-T2 fusion and C3-I8zhlwxshvmzmcy are present with paired rods and interpedicular screws. The surgical hardware appears intact. 2.No evidence of cervical spine fracture or malalignment. Report dictated by Kalin Kumar M.D. (resident doctor) I, Joshua Gaytan DO have personally reviewed and interpreted this examination/study. > Interpreting Provider: Joshua Gaytan DO on 10/04/2022 12:48 PM Coy Gómez MD DIAGNOSTIC IMAGING O RDERABLES * PHOSPHORUS BLOOD (10/04/2022 12:07 AM CDT) Phosphorus 3.1 2.9 - 5.1 mg/dL 10/04/2022 1:[address] [facility] Blood BLOOD SPECIMEN / Unknown Venipuncture / Unknown 10/04/2022 12:07 AM CDT 10/04/2022 12:35 AM CDT Coy Gómez MD LAB - CHEMISTRY ASH WEAVER Performing Organization Address City/[facility]/ZIP Co de Phone Number [address] [address], [facility] [phone] * MAGNESIUM BLOOD (10/04/2022 12:07 AM CDT) Magnesium 1.8 1.6 - 2.6 mg/dL 10/04/2022 1:[address] [facility] Blood BLOOD SPECIMEN / Unknown Venipuncture / Unknown 10/04/2022 12:07 AM CDT 10/04/2022 12:35 AM CDT Coy Gómez MD LAB - CHEMISTRY ASH WE[employer]ER Performing Organization Address City/[facility]/ZIP Co de Phone Number [address] [address], [facility] [phone] * (ABNORMAL) CBC W AUTO DIFFERENTIAL (10/04/2022 12:07 AM CDT) WBC 9.2 3.5 - 10.5 10? 3 /uL 10/04/2022 12:45 AM [facility] RBC 3.10(L) 3.80 - 5.20 10? 6 /uL 10/04/2022 12:45 AM [facility] Hemoglobin 9.4(L) 12.0 - 15.6 g/dL 10/04/2022 12:45 AM [facility] Hematocrit 28.7(L) 35.0 - 45.0 % 10/04/2022 12:45 AM [facility] MCV 92.6 80.7 - 98.3 fL 10/04/2022 12:45 AM [facility] MCH 30.3 26.7 - 34.0 pg 10/04/2022 12:45 AM [facility] MCHC 32.8 30.8 - 35.9 g/dL 10/04/2022 12:45 AM [facility] RDW-SD 47.0 36.0 - 50.0 fL 10/04/2022 12:45 AM [facility] RDW-CV 13.9 11.2 - 14.8 % 10/04/2022 12:45 AM [facility] Platelet Count 212 150 - 400 10? 3 /uL 10/04/2022 12:45 AM [facility] MPV 10.1 9.4 - 12.9 fL 10/04/2022 12:45 AM [facility] nRBC Absolute 0.00 0 10? 3 /uL 10/04/2022 12:45 AM [facility] nRBC Auto 0.0 0 /100 WBC 10/04/2022 12:45 AM [facility] Neutrophils % 68.3 35.0 - 70.0 % 10/04/2022 12:45 AM [facility] Lymphocytes % 17.4(L) 20.0 - 43.0 % 10/04/2022 12:45 AM [facility] Monocytes % 13.4(H) 5.0 - 13.0 % 10/04/2022 12:45 AM [facility] Eosinophils % 0.4 0.0 - 6.0 % 10/04/2022 12:45 AM [facility] Basophil % 0.2 0.0 - 2.0 % 10/04/2022 12:45 AM [facility] Neutrophils Absolute 6.25 1.60 - 7.00 10? 3 /uL 10/04/2022 12:45 AM [facility] Lymphocyte Absolute 1.60 1.10 - 3.90 10? 3 /uL 10/04/2022 12:45 AM [facility] Monocytes Absolute 1.23(H) 0.26 - 1.07 10? 3 /uL 10/04/2022 12:45 AM [facility] Eosinophils Absolute 0.04 0.00 - 0.47 10? 3 /uL 10/04/2022 12:45 AM [facility] Basophils Absolute 0.02 0.00 - 0.08 10? 3 /uL 10/04/2022 12:45 AM [facility] Immature Granulocytes % 0.3 0.0 - 1.0 % 10/04/2022 12:45 AM [facility] Immature Granulocytes Absolute 0.03 10/04/2022 12:45 AM [facility] Blood BLOOD SPECIMEN / Unknown Venipuncture / Unknown 10/04/2022 12:07 AM CDT 10/04/2022 12:35 AM T Coy Gómez MD LAB - HEMATOLOGY ORD ERABLES [facility] [address] [place] [address], [facility] [phone] * (ABNORMAL) BASIC METABOLIC PANEL (CALCIUM TOTAL) (10/04/2022 12:07 AM [facility]) BUN 17 7 - 26 mg/dL 10/04/2022 1:00 AM [facility] Creatinine 0.59 0.56 - 0.96 mg/dL 10/04/2022 1:00 AM [facility] Sodium 141 136 - 145 mmol/L 10/04/2022 1:00 AM [facility] Potassium 3.9 3.5 - 4.5 mmol/L 10/04/2022 1:00 AM [facility] Chloride 104 98 - 107 mmol/L 10/04/2022 1:00 AM [facility] CO2 26 22 - 29 mmol/L 10/04/2022 1:00 AM [facility] Glucose 117(H) 70 - 115 mg/dL 10/04/2022 1:00 AM [facility] Calcium 7.6(L) 8.4 - 10.2 mg/dL 10/04/2022 1:00 AM [facility] Anion Gap 15 8 - 18 10/04/2022 1:00 AM [facility] BUN/Creatinine Ratio 29(H) 7 - 23 10/04/2022 1:00 AM [facility] Osmolality Calculated 295 270 - 300 mOsm/kg 10/04/2022 1:[address] [facility] eGFR by CKD-EPI >90 >=90 mL/min/1.7 3 m2 10/04/2022 1:[address] [facility] Blood BLOOD SPECIMEN / Unknown Venipuncture / Unknown 10/04/2022 12:07 AM CDT 10/04/2022 12:35 AM CDT Coy Gómez MD LAB - CHEMISTRY [facility] [address] [address], [place] [phone] * PHOSPHORUS BLOOD (10/02/2022 11:25 PM CDT) Phosphorus 4.8 2.9 - 5.1 mg/dL 10/03/2022 12:[address] [facility] Blood BLOOD SPECIMEN / Unknown Venipuncture / Unknown 10/02/2022 11:25 PM CDT 10/02/2022 11:30 PM CDT Coy Gómez MD LAB - CHEMISTRY [facility] Performing Organization Address [facility]/ZIP Co de Phone Number [address] [address], [place] [phone] * MAGNESIUM BLOOD (10/02/2022 11:25 PM CDT) Magnesium 1.8 1.6 - 2.6 mg/dL 10/03/2022 12:[address] [facility] Blood BLOOD SPECIMEN / Unknown Venipuncture / Unknown 10/02/2022 11:25 PM CDT 10/02/2022 11:30 PM CDT Coy Gómez MD LAB - CHEMISTRY [facility] Performing Organization Address City/[facility]/ZIP Co de Phone Number [address] [address], [place] [phone] * (ABNORMAL) CBC W AUTO DIFFERENTIAL (10/02/2022 11:25 PM [facility]) WBC 11.9(H) 3.5 - 10.5 10? 3 /uL 10/03/2022 12:07 AM [facility] RBC 3.96 3.80 - 5.20 10? 6 /uL 10/03/2022 12:07 AM [facility] Hemoglobin 12.0 12.0 - 15.6 g/dL 10/03/2022 12:07 AM [facility] Hematocrit 35.1 35.0 - 45.0 % 10/03/2022 12:07 AM [facility] MCV 88.6 80.7 - 98.3 fL 10/03/2022 12:07 AM [facility] MCH 30.3 26.7 - 34.0 pg 10/03/2022 12:07 AM [facility] MCHC 34.2 30.8 - 35.9 g/dL 10/03/2022 12:07 AM [facility] RDW-SD 42.8 36.0 - 50.0 fL 10/03/2022 12:07 AM [facility] RDW-CV 13.2 11.2 - 14.8 % 10/03/2022 12:07 AM [facility] Platelet Count 297 150 - 400 10? 3 /uL 10/03/2022 12:07 AM [facility] MPV 10.2 9.4 - 12.9 fL 10/03/2022 12:07 AM [facility] nRBC Absolute 0.00 0 10? 3 /uL 10/03/2022 12:07 AM [facility] nRBC Auto 0.0 0 /100 WBC 10/03/2022 12:07 AM [facility] Neutrophils % 84.5(H) 35.0 - 70.0 % 10/03/2022 12:07 AM [facility] Lymphocytes % 8.4(L) 20.0 - 43.0 % 10/03/2022 12:07 AM [facility] Monocytes % 6.5 5.0 - 13.0 % 10/03/2022 12:07 AM [facility] Eosinophils % 0.0 0.0 - 6.0 % 10/03/2022 12:07 AM [facility] Basophil % 0.2 0.0 - 2.0 % 10/03/2022 12:07 AM [facility] Neutrophils Absolute 10.06(H) 1.60 - 7.00 10? 3 /uL 10/03/2022 12:07 AM [facility] Lymphocyte Absolute 1.00(L) 1.10 - 3.90 10? 3 /uL 10/03/2022 12:07 AM [facility] Monocytes Absolute 0.77 0.26 - 1.07 10? 3 /uL 10/03/2022 12:07 AM [facility] Eosinophils Absolute 0.00 0.00 - 0.47 10? 3 /uL 10/03/2022 12:07 AM [facility] Basophils Absolute 0.02 0.00 - 0.08 10? 3 /uL 10/03/2022 12:07 AM [facility] Immature Granulocytes % 0.4 0.0 - 1.0 % 10/03/2022 12:07 AM [facility] Immature Granulocytes Absolute 0.05 10/03/2022 12:07 AM [facility] Blood BLOOD SPECIMEN / Unknown Venipuncture / Unknown 10/02/2022 11:25 PM CDT 10/02/2022 11:30 PM CDT Coy Gómez MD LAB - HEMATOLOGY ORD ERABLES Performing Organization Address [facility]/State/[facility] Co de Phone Number [facility] [address] [place] [address] [phone] * (ABNORMAL) BASIC METABOLIC PANEL (CALCIUM TOTAL) (10/02/2022 11:25 PM CDT) BUN 16 7 - 26 mg/dL 10/03/2022 12:09 AM [facility] Creatinine 0.61 0.56 - 0.96 mg/dL 10/03/2022 12:09 AM [facility] Sodium 139 136 - 145 mmol/L 10/03/2022 12:09 AM [facility] Potassium 4.5 3.5 - 4.5 mmol/L 10/03/2022 12:09 AM [facility] Chloride 105 98 - 107 mmol/L 10/03/2022 12:09 AM [facility] CO2 21(L) 22 - 29 mmol/L 10/03/2022 12:09 AM [facility] Glucose 129(H) 70 - 115 mg/dL 10/03/2022 12:09 AM [facility] Calcium 7.9(L) 8.4 - 10.2 mg/dL 10/03/2022 12:09 AM [facility] Anion Gap 18 8 - 18 10/03/2022 12:09 AM [facility] BUN/Creatinine Ratio 26(H) 7 - 23 10/03/2022 12:09 AM [facility] Osmolality Calculated 291 270 - 300 mOsm/kg 10/03/2022 12:09 AM [facility] eGFR by CKD-EPI >90 >=90 mL/min/1.7 3 m2 10/03/2022 12:09 AM [facility] Blood BLOOD SPECIMEN / Unknown Venipuncture / Unknown 10/02/2022 11:25 PM CDT 10/02/2022 11:30 PM CDT Coy Gómez MD LAB - CHEMISTRY [facility] [address] [place] [address], [facility] [phone] * (ABNORMAL) PHOSPHORUS BLOOD (10/02/2022 2:30 PM CDT) Phosphorus 5.3(H) 2.9 - 5.1 mg/dL 10/02/2022 3:[address] [facility] Blood BLOOD SPECIMEN / Unknown Venipuncture / Unknown 10/02/2022 2:30 PM CDT 10/02/2022 2:41 PM CDT Coy Gómez MD LAB - CHEMISTRY [facility] [address] [place] [address], [place] [phone] * MAGNESIUM BLOOD (10/02/2022 2:30 PM CDT) Pathologist [facility] Magnesium 1.9 1.6 - 2.6 mg/dL 10/02/2022 3:06 PM [facility] Blood BLOOD SPECIMEN / Unknown Venipuncture / Unknown 10/02/2022 2:30 PM CDT 10/02/2022 2:41 PM CDT Coy Gómez MD LAB - CHEMISTRY [facility] [address] [place] [address], [place] [phone] * (ABNORMAL) BASIC METABOLIC PANEL (CALCIUM TOTAL) (10/02/2022 2:30 PM CDT) Pathologist [facility] BUN 16 7 - 26 mg/dL 10/02/2022 3:06 PM [facility] Creatinine 0.75 0.56 - 0.96 mg/dL 10/02/2022 3:06 PM [facility] Sodium 141 136 - 145 mmol/L 10/02/2022 3:06 PM [facility] Potassium 4.1 3.5 - 4.5 mmol/L 10/02/2022 3:06 PM [facility] Chloride 106 98 - 107 mmol/L 10/02/2022 3:06 PM [facility] CO2 23 22 - 29 mmol/L 10/02/2022 3:06 PM [facility] Glucose 143(H) 70 - 115 mg/dL 10/02/2022 3:06 PM [facility] Calcium 7.8(L) 8.4 - 10.2 mg/dL 10/02/2022 3:06 PM [facility] Anion Gap 16 8 - 18 10/02/2022 3:06 PM [facility] BUN/Creatinine Ratio 21 7 - 23 10/02/2022 3:06 PM [facility] Osmolality Calculated 296 270 - 300 mOsm/kg 10/02/2022 3:06 PM [facility] eGFR by CKD-EPI 89(L) >=90 mL/min/1.7 3 m2 10/02/2022 3:06 PM [facility] Blood BLOOD SPECIMEN / Unknown Venipuncture / Unknown 10/02/2022 2:30 PM CDT 10/02/2022 2:41 PM CDT Coy Gómez MD LAB - CHEMISTRY [facility] [address] [place] [address], [facility] [phone] * (ABNORMAL) CBC W AUTO DIFFERENTIAL (10/02/2022 12:59 PM CDT) WBC 9.9 3.5 - 10.5 10? 3 /uL 10/02/2022 1:37 PM [facility] RBC 4.06 3.80 - 5.20 10? 6 /uL 10/02/2022 1:37 PM [facility] Hemoglobin 12.3 12.0 - 15.6 g/dL 10/02/2022 1:37 PM [facility] Hematocrit 37.7 35.0 - 45.0 % 10/02/2022 1:37 PM [facility] MCV 92.9 80.7 - 98.3 fL 10/02/2022 1:37 PM [facility] MCH 30.3 26.7 - 34.0 pg 10/02/2022 1:37 PM [facility] MCHC 32.6 30.8 - 35.9 g/dL 10/02/2022 1:37 PM [facility] RDW-SD 45.9 36.0 - 50.0 fL 10/02/2022 1:37 PM [facility] RDW-CV 13.6 11.2 - 14.8 % 10/02/2022 1:37 PM [facility] Platelet Count 236 150 - 400 10? 3 /uL 10/02/2022 1:37 PM [facility] MPV 10.3 9.4 - 12.9 fL 10/02/2022 1:37 PM [facility] Immature Platelet Fraction 2.3 1.1 - 6.2 % 10/02/2022 1:37 PM [facility] nRBC Absolute 0.00 0 10? 3 /uL 10/02/2022 1:37 PM [facility] nRBC Auto 0.0 0 /100 WBC 10/02/2022 1:37 PM [facility] Neutrophils % 87.3(H) 35.0 - 70.0 % 10/02/2022 1:37 PM [facility] Lymphocytes % 10.0(L) 20.0 - 43.0 % 10/02/2022 1:37 PM [facility] Monocytes % 1.8(L) 5.0 - 13.0 % 10/02/2022 1:37 PM [facility] Eosinophils % 0.2 0.0 - 6.0 % 10/02/2022 1:37 PM [facility] Basophil % 0.4 0.0 - 2.0 % 10/02/2022 1:37 PM [facility] Neutrophils Absolute 8.64(H) 1.60 - 7.00 10? 3 /uL 10/02/2022 1:37 PM [facility] Lymphocyte Absolute 0.99(L) 1.10 - 3.90 10? 3 /uL 10/02/2022 1:37 PM [facility] Monocytes Absolute 0.18(L) 0.26 - 1.07 10? 3 /uL 10/02/2022 1:37 PM [facility] Eosinophils Absolute 0.02 0.00 - 0.47 10? 3 /uL 10/02/2022 1:37 PM [facility] Basophils Absolute 0.04 0.00 - 0.08 10? 3 /uL 10/02/2022 1:37 PM [facility] Immature Granulocytes % 0.3 0.0 - 1.0 % 10/02/2022 1:37 PM [facility] Immature Granulocytes Absolute 0.03 10/02/2022 1:37 PM [facility] Blood BLOOD SPECIMEN / Unknown Venipuncture / Unknown 10/02/2022 12:59 PM CDT 10/02/2022 1:27 PM CDT Coy Gómez MD LAB - HEMATOLOGY ORD ERABLES Performing Organization Address [facility]/ZIP Co de Phone Number [facility] [address] [place] [address], [facility] [phone] * PT-INR [facility] (10/02/2022 12:59 PM CDT) PT 12.9 12.1 - 14.8 Seconds 10/02/2022 1:54 PM CDT [facility] INR 1.0 See Comment 10/02/2022 1:54 PM CDT [facility] Comment:The suggested therap eutic range for standard coumadin (warfarin) therapy is an INR of 2.0-3.0. For high-risk patients (Mechanical Mitral Valve Prosthesis, etc.), the suggested prophylactic therapeutic range is an INR of 2.5-3.5. Blood BLOOD SPECIMEN / Unknown Venipuncture / Unknown 10/02/2022 12:59 PM CDT 10/02/2022 1:27 PM CDT Coy Gómez MD LAB - COAGULATION OR DERABLES Performing Organization Address [facility]/ZIP Co de Phone Number [facility] [address] [place] [address], [facility] [phone] * [place] RONNY SURGERY (10/02/2022 11:17 AM CDT) Narrative [facility] RADIOLOGY - 10/02/2022 11:18 AM CDT Fluoroscopy was used for this exam in the OR. Please see the Operative report. Coy Gómez MD FLUOROSCOPY ORDERABL ES [facility] RADI[facility] * [place] OARM SURGERY (10/02/2022 11:17 AM CDT) Narrative [facility] RADIOLOGY - 10/02/2022 11:48 AM CDT Fluoroscopy was used for this exam in the OR. Please see the Operative report. Coy Gómez MD FLUOROSCOPY ORDERABL ES [facility] RAD[facility] * PATHOLOGY TISSUE (10/02/2022 9:59 AM CDT) Case Report Surgical Pathology Report ? Case: [id number] ? Authorizing Provider: ??Coy Gómez MD ?Collected: ? 10/02/2022 09:59 AM ? Ordering Location: ? [facility] ?Received: ?10/02/2022 11:08 AM ? Pathologist: ? Edin Scales MD ? Specimens: ?? A) - Spinal Cord, extradural tumor ? B) - Spinal Cord, extradural tumor ? 10/06/2022 1:13 PM CDT [facility] Final Diagnosis Spinal cord, extradural tumor, resection (A): - Metastatic carcinoma. - See comment. Spinal cord, extradural tumor, resection (B): - Metastatic carcinoma. - See comment. Comment: The histopathological and immunohistochemical features of this tumor, along with the patient's history, are compatible with a metastatic thyroid carcinoma. 10/06/2022 1:13 PM [facility] PATHOLOGY LAB Microscopic Description and Comment [...] CK20 immunostaining. 10/06/2022 1:13 PM [facility] PATHOLOGY LAB Clinical History 10/06/2022 1:13 PM [facility] PATH[facility] Gross Description The requisition and specimen(s) are identified with the patient's Elizabeth Woody Waiteon. Received fresh, specimen A, are 2 pink 0.5 x 0.3 x 0.1 cm rubbery tissues which are submitted for touch prep and frozen section. The frozen section residue is entirely submitted in 1 cassette labeled A1. /ML The requisition and specimen(s) are identified with the patient's Elizabeth R Edison. Received in formalin, specimen B, is an irregular 1.2 x 0.5 x 0.2 cm pink-yellow rubbery tissue which is submitted in toto in 1 cassette labeled B1. /ML 10/06/2022 1:13 PM [facility] PATHOLOG[facility] Disclaimer The performance characteristics of all immunohistochemical and indirect immunofluorescence stains (if any) cited in this report were determined by the Histopathology Laboratory of [facility]. Some of these tests were developed by [...] the attending (teaching) pathologist. 10/06/2022 1:13 PM [facility] PATH[facility] LAB Embedded Images 10/06/2022 1:13 PM CDT [facility] PATHOLOGY LAB Biopsy, Excision ENTIRE SPINAL CORD / Unknown 10/02/2022 9:59 AM CDT 10/02/2022 11:08 AM CDT Comment:Pre-op diagnosis: spine tumor Biopsy, Excision ENTIRE SPINAL CORD / Unknown 10/02/2022 10:42 AM CDT 10/02/2022 2:56 PM CDT Comment:Pre-op diagnosis: spine tumor Coy Gómez MD LAB - PATHOLOGY/CYTO LOGY ORDERABLES Performing Organization Address [facility]/ZIP Co de Phone Number [facility] PATHOLOGY LAB [address] [place] [address], [facility] [phone] * TYPE + SCREEN PANEL (10/02/2022 6:41 AM CDT) Antibody Screen NEG 7:31 AM CDT [facility] BLOOD BANK LAB ABO Rh B POS 10/02/2022 7:31 AM CDT [facility] B[facility] LAB Blood Bank BLOOD SPECIMEN / Unknown Venipuncture / Unknown 10/02/2022 6:41 AM CDT 10/02/2022 6:49 AM CDT Coy Gómez MD LAB - BLOOD BANK ORD ERABLES Performing Organization Address [facility] Co de Phone Number [facility] BLOOD [facility] LAB [address] [place] [address], [facility] [phone] documented in this encounter Visit Diagnoses Diagnosis [...] nature of bone, soft tissue, and skin 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 bupivacaine 0.5% - EPINEPHrine 1:200,000 (PF) injection PRN, Starting on Wed10/02/22 at 0815, Until Wed10/02/22 at 1127, Intra-op $ Given 10/02/2022 8:15 AM CDT 10 mL buPROPion SR 12hr (Wellbutrin-SR) tablet 100 mg [...] mcg 0.5 mcg, Oral, 2 TIMES DAILY (,16), First dose on Wed10/02/22 at 1600, Until [...] Given 10/05/2022 8:39 AM CDT 0.5 mg cyclobenzaprine (Flexeril) tablet 5 mg 5 [...] Given 10/06/2022 8:29 AM CDT 20 mg fish oil/omega-3 fatty acids (Promega;Cardi-Brantingham 3) capsule 1,000 mg 1,000 mg, Oral, [...] Given 10/05/2022 8:40 AM CDT 112 mcg loratadine (Claritin) tablet 10 mg 10 mg, [...] soda, coffee or tea prior to administration senna (Senokot) tablet 17.2 mg 17.2 mg, [...] Wed10/02/22 at 1055, Until Wed10/07/22 at 1312 thrombin (recombinant) (Recothrom) solution PRN, Starting on Wed10/02/22 at 0907, Until Wed10/02/22 at 1127, Intra-op $ Given 10/02/2022 9:07 AM CDT 5,000 Un its traZODone (Desyrel) tablet 50 mg 50 mg, Oral, AT BEDTIME, First dose on Wed10/02/22 at 2100, Until Discontinued $ Given 10/06/2022 8:55 PM CDT 50 mg $ Given 10/05/2022 8:51 PM CDT 50 mg $ Given 10/04/2022 8:17 PM CDT 50 mg vancomycin (Vancocin) injection PRN, Starting on Wed10/02/22 at 0907, Until Wed10/02/22 at 1127, Indication for anti-infective therapy: Surgical prophylaxis, Intra-op $ Given 10/02/2022 9:07 AM CDT 500 mg vitamin E (Tocopheryl) capsule 200 Units [...] Intracatheter, EVERY 8 HOURS, First dose on Josi 10/01/22 at 2200, Until Discontinued, Flush peripheral IV [...] request must be documented in the MAR. 0202 ($ Given - Provider: Jarocho Higgins RN)0552 ($ Given - Provider: Jarocho Higgins RN)1055 ($ Given - Provider: Pravin Dennis, JOSY)1833 (Not Administered - Provider: Pravin Dennis RN - Reason: Refused-Patient - Comment: no pain at this time.) 0041 (Not Administered - Provider: Yaneth Camejo RN - Reason: Patient sleeping)0516 ($ Given - Provider: Yaneth Camejo RN)1219 ($ Given - Provider: Felicity Kwan, JOSY)1744 ($ Given - Provider: Felicity Kwan RN) 0010 ($ Given - Provider: Yaneth Camejo RN)0532 (Not Administered - Provider: Yaneth Camejo RN - Reason: Refused-Patient) atorvastatin (Lipitor) tablet 40 mg 40 mg, Oral, AT BEDTIME, First dose on Wed10/02/22 at 2100, Until Discontinued 2050 ($ Given - Provider: Yaneth Camejo RN) 2054 ($ Given - Provider: Yaneth Camejo, JOSY) buPROPion SR 12hr (Wellbutrin-SR) tablet 100 mg 100 mg, Oral, 2 TIMES DAILY, First dose on Wed10/02/22 at 1130, Until Discontinued, Do not crush, chew, or cut in half. 0840 ($ Given - Provider: Pravin Dennis RN)2050 ($ Given - Provider: Yaneth Camejo RN) 0835 ($ Given - Provider: Felicity Kwan, JOSY)2101 ($ Given - Provider: Yaneth Camejo, JOSY) 08 ($ Given - Provider: Ellen Huston RN) calcitriol (Rocaltrol) capsule 0.5 mcg 0.5 mcg, Oral, 2 TIMES DAILY (,16), First dose on Wed10/02/22 at 1600, Until Discontinued 0552 ($ Given - Provider: Jarocho Higgins RN)1507 ($ Given - Provider: Pravin Dennis RN) 0516 ($ Given - Provider: Yaneth Camejo, JOSY)1644 ($ Given - Provider: Felicity Kwan, JOSY) 0405 ($ Given - Provider: Yaneth Camejo, JOSY) chlorhexidine (Peridex) 0.12 % oral solution 15 mL 15 mL, Mouth/Throat, 2 TIMES DAILY, First dose on Wed10/02/22 at 1100, Until Discontinued, Swab oral cavity. . WASTE DISPOSAL INSTRUCTIONS: Black Bin Disposal required. 0839 (Not Administered - Provider: Pravin Dennis RN - Reason: Refused-Patient)2049 (Not Administered - Provider: Yaneth Camejo RN - Reason: Refused-Patient) 08 ($ Given - Provider: Felicity Kwan, JOSY)2055 (Not Administered - Provider: Yaneth Camejo RN [...] RN)2050 ($ Given - Provider: Yaneth Camejo, RN) 0829 ($ Given - Provider: Felicity Kwan RN)205 ($ Given - Provider: Yaneth Camejo, JOSY) 08 ($ Given - Provider: Ellen Huston RN) fish oil/omega-3 fatty acids (Promega;Cardi-Brantingham 3) capsule 1,000 mg 1,000 mg, Oral, 3 TIMES DAILY WITH MEALS, First dose on Wed10/02/22 at 1200, Until Discontinued 0840 (Not Administered - Provider: Pravin Dennis RN - Reason: Refused-Patient)1105 (Not Administered - Provider: Pravin Dennis RN - Reason: Refused-Patient)1729 (Not Administered - Provider: Pravin Dennis RN - Reason: Refused-Patient) 0828 ($ Given - Provider: Felicity Kwan RN)1219 (Not Administered - Provider: Felicity Kwan RN [...] Dennis RN)2051 ($ Given - Provider: Yaneth Camejo, JOSY) 0835 ($ Given - Provider: Felicity Kwan, JOSY)1458 ($ Given - Provider: Felicity Kwan RN)2055 ($ Given - Provider: Yaneth Camejo RN) 0827 ($ Given - Provider: Ellen Huston, JOSY) heparin injection 5,000 Units 5,000 Units, Subcutaneous, EVERY 8 HOURS, First dose on Wed10/03/22 at 1400, Until Discontinued 0552 ($ Given - Provider: Jarocho Higgins RN)1507 ($ Given - Provider: Pravin Dennis RN)2100 ($ Given - Provider: Yaneth Camejo, JOSY) 0516 ($ Given - Provider: Yaneth Camejo RN)1459 ($ Given - Provider: Felicity Kwan, JOSY)2103 ($ Given - Provider: Yaneth Camejo, JOSY) [...] RN) 0828 ($ Given - Provider: Ellen Huston RN) lidocaine (Lidoderm) 5 % patch 1 patch [...] Pravin Dennis RN)2255 (Removed - Provider: Yaneth Camejo RN) 1220 ($ Applied - Provider: Felicity Kwan RN) 0017 (Removed - Provider: Yaneth Camejo RN) loratadine (Claritin) tablet 10 mg 10 mg, Oral, DAILY, First dose on Wed10/02/22 at 1130, Until Discontinued 0839 ($ Given - Provider: Pravin Dennis RN) 0829 ($ Given - Provider: Felicity Kwan, JOSY) 0827 ($ Given - Provider: Ellen Huston, JOSY) multivitamin daily tablet 1 tablet 1 tablet, Oral, DAILY, First dose on Wed10/02/22 at 1130, Until Discontinued, . WASTE DISPOSAL INSTRUCTIONS: Black Bin Disposal required. 0840 (Not Administered - Provider: Pravin Dennis RN - Reason: Refused-Patient) 0829 ($ Given - Provider: Felicity Kwan RN) 0827 ($ Given - Provider: Ellen Huston RN) nicotine (Nicoderm CQ) patch 14 mg 14 [...] ($ Given - Provider: Felicity Kwan RN) 0829 ($ Given - Provider: Ellen Huston, JOSY) pantoprazole EC (Protonix) tablet 40 mg 40 mg, Oral, DAILY, First dose on Wed10/02/22 at 1130, Until Discontinued, Do not crush, chew, or cut in half. 0840 ($ Given - Provider: Pravin Dennis RN) 0829 ($ Given - Provider: Felicity Kwan, JOSY) 0828 ($ Given - Provider: Ellen Huston, RN) PARoxetine (Paxil) tablet 40 mg 40 mg, [...] Given - Provider: Felicity Kwan, JOSY) 08 (Not Administered - Provider: Ellen Huston RN - Reason: Refused-Patient) traZODone (Desyrel) tablet 50 mg 50 mg, Oral, AT BEDTIME, First dose on Wed10/02/22 at 2100, Until Discontinued 2050 ($ Given - Provider: Yaneth Camejo RN) 2054 ($ Given - Provider: Yaneth Camejo, JOSY) vitamin E (Tocopheryl) capsule 200 Units 200 Units, Oral, 3 TIMES DAILY, First dose on Wed10/02/22 at 1130, Until Discontinued 08 (Not Administered - Provider: Pravin Dennis RN - Reason: Refused-Patient)141 (Not Administered - Provider: Pravin Dennis RN [...] Wed10/02/22 at 1130, Until Wed10/07/22 at 0959 2059 ($ New Bag/Syringe - Provider: Yaneth Camejo [...] 1507 ($ Given - Provider: Pravin Dennis RN)2057 ($ Given - Provider: Yaneth Camejo, JOSY) 0516 ($ Given - Provider: Yaneth Camejo, RN) 0407 ($ Given - Provider: Yaneth Camejo, JOSY) hydrALAZINE (Apresoline) injection 10 mg 10 mg, [...] No 1055 ($ Given - Provider: Pravin Dennis, RN)1507 ($ Given - Provider: Pravin Dennis, RN)2057 ($ Given - Provider: Yaneth Camejo, RN) 0829 ($ Given - Provider: Felicity Kwan, JOSY) 0407 ($ Given - Provider: Yaneth Camejo, JOSY)0830 ($ Given - Provider: Ellen Huston RN) [...] request must be documented in the MAR. 180 ($ Given - Provider: Felicity Kwan, JOSY) polyethylene glycol 3350 (Miralax) packet 17 g [...] AND MAINTAIN (CANCELED) Routine, CONTINUOUS, Starting on Wed10/01/22 at 2030, Until Specified, New collection And [...] swallow. documented in this encounter Care Teams Poising Inspector Relationship Specialty Start Date End Date Taniya Grimes MD [address] [place] [phone] PCP - General 07/15/22 10/06/22 Adriana Adams DO [address] [place] [address] Resident - PCP Internal Medicine 04/06/22 01/12/23 documented as of this encounter
--- OUTSIDE RECORDS SUMMARY | 2024-07-23 07:12 | XMS_ITS | Encounter Summary ---
Author Organization [facility] Health Address [address] [place] [address] Care Team Providers Care Data Support Specialist Name Role Phone Adriana Adams DO Unavailable Taniya Grimes MD Primary Care Provider Encounter Details Date Type Department Care Team (Late st Contact Info) Description 08/25/2022 Orders Only [facility], Diabetes and Metabolism [address] [place] [address], [place] [phone] Yosi Bustamante MD [address] [place] [address] of Endocrinology [place], [place] [id number] Thyroid cancer (HCC); Postoperative hypothyroidism Social History Tobacco Use Types Packs/Day [...] Coronavirus/COVID-19? No / Unsure 09/02/2022 2:14 PM FRONT END ASSISTANT documented as of this encounter Functional Status [...] st Contact Info) Description 07/25/2024 10:00 AM FRONT END ASSISTANT Office Visit [facility] - Endocrinology [address] [place] [phone] Yosi Bustamante MD [address] [place] [address] 2L [place] [address] 07/26/2024 10:00 AM FRONT END ASSISTANT Appointment [facility] [address] [place] [address] Neri Delgado MD [address] [place] [address] 07/26/2024 10:00 AM FRONT END ASSISTANT Office Visit [facility] - ENT [address] [place] [phone] Myra Farmer, HAND CEMENTER [address] [place] [address] 2L [place] [address] 07/26/2024 11:15 AM FRONT END ASSISTANT Office Visit [facility] ENT [address] [place] [phone] Neri Delgado MD [address] [place] [address] 08/02/2024 2:20 PM FRONT END ASSISTANT Appointment [facility] [address] [place] [address] 08/02/2024 3:00 PM FRONT END ASSISTANT Office Visit [facility] - Hematology/Oncology [address] [place] [phone] Remi Beckett MD [address] [place] [phone] 08/18/2024 1:45 PM FRONT END ASSISTANT Office Visit [facility] - ENT [address] [place] [phone] Neri Delgado MD [address] [place] [phone] documented as of this encounter Visit Diagnoses Diagnosis Thyroid cancer (HCC) Malignant neoplasm of thyroid gland Postoperative hypothyroidism Postsurgical hypothyroidism documented in this encounter Care Teams Data Support Specialist Relationship Specialty Start Date End Date Taniya Grimes MD [address] [place] [address] 2L DIV OF [facility] [place] [phone] PCP - General 07/15/22 10/06/22 Adriana Adams DO [address] [place] [phone] Resident - PCP Internal Medicine 04/06/22 01/12/23 documented as of this encounter
--- OUTSIDE RECORDS SUMMARY | 2024-07-23 07:12 | XMS_ITS | Encounter Summary ---
Author Organization [facility] Address [address] [facility] [facility] [place] [address] Care Team Providers Care Cherry Grower Name Role Phone Adriana Adams DO Unavailable Taniya Grimes MD Primary Care Provider Reason for Referral * Procedure (Routine) - Closed Specialty Diagnoses / Procedures Referred By Contac t Referred To Contact Cardiology Diagnoses Pre-op testing Procedures EKG 12-LEAD Coy Gómez MD [address] [place] [address] 2[address] [place] [address] Referral ID Status Reason Start Date Expiration Date Visits Re quested Visits Authorized [id number] Closed 09/02/2022 09/02/2023 1 1 O AND SOUND RECORDER Reason for Visit * Reason Comments Consultation Spinal Canal Stenosi s With Cord Compress Encounter Details Date Type Department Care Team (Late st Contact Info) Description 09/02/2022 9:00 AM VIDEO AND SOUND RECORDER Office Visit [facility] [address] [place] [address], [place] [address] Coy Gómez MD [facility] [address] [place] [address] Pre-op testing (Primary Dx) Social History Tobacco Use Types [...] Coronavirus/COVID-19? No / Unsure 09/02/2022 2:14 PM VIDEO AND SOUND RECORDER documented as of this encounter Last Filed Vital Signs Vital Sign Reading Time Taken Comments Blood Pressure 130/75 09/02/2022 9:00 AM VIDEO AND SOUND RECORDER Pulse 87 09/02/2022 9:00 AM VIDEO AND SOUND RECORDER Temperature 36.8 ??C (98.2 ??F) 09/02/2022 9:00 AM CS T Respiratory Rate 18 09/02/2022 9:00 AM VIDEO AND SOUND RECORDER Oxygen Saturation 95% 09/02/2022 9:00 AM VIDEO AND SOUND RECORDER Inhaled Oxygen Concentration - - Weight 70.3 kg (155 lb) 09/02/2022 9:00 AM VIDEO AND SOUND RECORDER Height 157.5 cm (5' 2) 09/02/2022 9:00 AM VIDEO AND SOUND RECORDER Body Mass Index 28.35 09/02/2022 9:00 AM VIDEO AND SOUND RECORDER documented in this encounter Functional Status Functional [...] No 02/05/2022 documented as of this encounter Patient Instructions * Patient Instructions* Heather Oreilly - 09/02/2022 9:46 AM VIDEO AND SOUND RECORDER Surgery date 10/02/2022 will need to arrive at 0530am to [facility] 1st floor ACU (Rubi Díaz) NPO (nothing to eat or drink) after midnight Call pre admission testing 3 weeks prior to surgery for anesthesia clearance at [phone] Hold Asprin and NSAIDs 7 days prior to surgery For any questions please call Heather at [phone] O AND SOUND RECORDER documented in this encounter Progress Notes * Coy Gómez MD - 09/02/2022 8:41 AM CST NEUROSURGERY CLINIC NOTE Chief Complaint (CC): HISTORY OF PRESENT ILLNESS (HPI): Brisa Hogan is a 61 year old female with aggressive PTC ([id number]) s/p thyroidectomy, tracheal resection/reanastamosis, bilateral neck dissections and central neck dissections (2021), with right neck recurrence s/p revision right central neck dissection. She was referred for cervical spine local metastasis. She has neck pain mostly in the evening with pain extending to both shoulders with numbness in the left arm. The left hand she finds difficult to control. No incontinence. She does have significant left hip pain that makes ambulting difficult. She uses a 4WW. Past Medical History: Diagnosis Date ??? Anxiety [...] Complex Vitamins (B COMPLEX 1 PO) ??? BUPROPION HCL ER, SR, PO ??? calcitriol (Rocaltrol) 0.5 MCG capsule ??? XFOCWRS-EBJOQRVGC-YMZM PO ??? celecoxib (CELEBREX) 200 MG capsule ??? cetirizine (ZYRTEC) 10 MG tablet ??? clonazePAM (KLONOPIN) 0.5 MG tablet ??? cyclobenzaprine (Flexeril) 5 MG tablet ??? famotidine (PEPCID) 20 MG tablet ??? fish oil/omega-3 fatty acids (PROMEGA;CARDI-OMEGA 3) 1000 MG capsule ??? fluticasone propionate (FLONASE) 50 MCG/ACT nasal spray ??? gabapentin (Neurontin) 300 MG capsule ??? IYGERA-GYKIAHMCG-PNC-C-HYAL PO ??? levothyroxine (Synthroid) 112 MCG tablet ??? lidocaine (Lidoderm) 5 % patch ??? methylPREDNISolone (Medrol Dosepak) 4 MG tablet ??? Misc Natural Products (NEURIVA PO) ??? nicotine (NICODERM CQ) 14 MG/24HR patch ??? oxybutynin CR 24hr (Ditropan-XL) 5 MG tablet ??? pantoprazole EC (Protonix) 40 MG tablet ??? PARoxetine (PAXIL) 40 MG tablet ??? thyrotropin tayo (THYROGEN) injection ??? traZODone (DESYREL) 50 MG tablet ??? vitamin E (TOCOPHERYL) 200 UNIT capsule No current facility-administered medications for this visit. Allergies Allergen Reactions ??? Kiwi Extract Anaphylaxis ??? Shellfish Allergy Other Passed out after eating lobster but can eat shrimp and crab Social History Tobacco Use ??? Smoking status: Heavy Smoker Packs/day: 0.50 Years: 40.00 Pack years: 20.00 Types: Cigarettes Start date: 07/22/1973 ??? Smokeless tobacco: Never Substance Use Topics ??? Alcohol use: No [...] hoarseness Respiratory: Negative Cardiovascular: Negative Gastrointestinal: Negative Genitourinary:negative Hematologic/lymphatic: Negative Musculoskeletal:Positive for chronic neck pain Neurological: Positive for weakness Behavioral/Psych: Positive for depressed mood Endocrine: Negative, thyroid and calcium supplements PHYSICAL EXAM There were no vitals taken for this visit. General: awake, alert, appropriate Integument: no lesions found, wound-in neck healed Neuro: a Deltoid Bicep Tricep Furnace Clerk Wrist Ext Finger ext Hip Flexor Quad Hamstring Tib Ant Gastroc EHL Right 5 5 5 5 5 5 5 5 5 5 5 5 Left 0 1 3 4+ 4+ 4+ Antalgic but 4+ 5 5 5 5 5 Biceps triceps Patellar Achilles Right 2+ 2+ 2+ NT Left 0 1 2+ NT Antalgic gait RADIOLOGY PROCEDURE: MRI CERVICAL SPINE WWO CONT, DATE/TIME OF EXAM: 08/21/2022 3:59 PM, LOCATION [facility] ?? INDICATION: C73: Thyroid cancer (CMS/HCC) E89.0: Postoperative hypothyroidism ?? ADDITIONAL CLINICAL INFORMATION: Ordering Provider Reason For Exam: C SPINE LESION ON NUC MED STUDY FOR THYROID CANCER Focal uptake in anteriorly in the left aspect of the mid cervical spine ?? COMPARISON: Thyroid whole body scan from 08/19/2022, CT neck soft tissues from 01/28/2022, PET/CT from 12/24/2021 and MRI cervical spine from 08/17/2020 were reviewed. ?? EXAMINATION: MRI of the cervical spine without and with intravenous contrast ?? TECHNIQUE: MRI of the the cervical spine was performed without and with intravenous contrast according to standard protocol. ?? CONTRAST: Gadobutrol 1 mmol/ml iv ssm so: 7 ml ?? FINDINGS: ?? There is enhancing bone marrow signal abnormality [...] sclerotic lesion on the CT from 01/28/2022. ?? No other osseous metastases are seen in the cervical or included upper thoracic spine. There is no pathologic compression fracture. ?? Multilevel degenerative changes are seen. There is [...] of right C4-5 and C6-7 neural foramina. ?? Remainder of the spinal cord is unremarkable. There is no spinal cord enhancement. ? IMPRESSION: ?? 1.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 of [...] cord compression. No demonstrated cord edema. 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 We discussed the goals of any surgical procedure including decompression and separation of tumor from spinal cord from cervical 5-7 and stabilization from cervical 2-thoracic 2. I do not suspect that the function in her upper arm will improve however. The procedures goalwill be diagnosis, stabilization, decompression and separation surgery for possible radiosurgery treatment. Risks and benefits discussed and will proceed. I would like patient to touch base with Dr. Sharif again for injection fo the left shoulder and hip. O AND SOUND RECORDER documented in this encounter Plan of Treatment Upcoming Encounters Date Type Department Care Team (Late st Contact Info) Description 07/25/2024 10:00 AM VIDEO AND SOUND RECORDER Office Visit [facility] - Endocrinology [address] [place] [phone] Yosi Bustamante MD [address] [place] [address] 2L [place] [address] 07/26/2024 10:00 AM VIDEO AND SOUND RECORDER Appointment [facility] DIAGNOSTIC RAD [address] [place] [address] Neri Delgado MD [address] [place] [address] 07/26/2024 10:00 AM VIDEO AND SOUND RECORDER Office [facility]NT [address] [place] [phone] Myra Farmer, FLANGER [address] [place] [address] 2L [place] [phone] 07/26/2024 11:15 AM VIDEO AND SOUND RECORDER Office Visit [facility]NT [address] [place] [phone] Neri Delgado MD [address] [place] [address] 08/02/2024 2:20 PM VIDEO AND SOUND RECORDER Appointment [facility] [address] [place] [address] 08/02/2024 3:00 PM VIDEO AND SOUND RECORDER Office Visit [facility] - Hematology/Oncology [address] [place] [phone] Remi Beckett MD [address] [place] [address] 08/18/2024 1:45 PM VIDEO AND SOUND RECORDER Office Visit [facility] - ENT [address] [place] [phone] Neri Delgado MD [address] [place] [address] documented as of this encounter Results * PTT [facility] (09/14/2022 3:13 PM CDT) Pathologist [facility] APTT 27.8 23.0 - 38.4 Seconds 09/14/2022 4:22 PM CDT [facility] Comment:Suggested therapeuti c range for full dose I.V. unfractionated heparin therapy for venous thromboembolism is 71 to 109 seconds. Blood BLOOD SPECIMEN / Unknown Lab Venipuncture / Unknown 09/14/2022 3:13 PM CDT 09/14/2022 4:00 PM CDT Coy Gómez MD LAB - COAGULATION OR DERABLES Performing Organization Address City/State/[facility] Co de Phone Number [facility] [address] [place] [address], [facility] [phone] * PT-INR [facility] (09/14/2022 3:13 PM CDT) Pathologist [facility] PT 12.8 12.1 - 14.8 Seconds 09/14/2022 4:21 PM CDT [facility] INR 1.0 See Comment 09/14/2022 4:21 PM CDT [facility] Comment:The suggested therap eutic range for standard coumadin (warfarin) therapy is an INR of 2.0-3.0. For high-risk patients (Mechanical Mitral Valve Prosthesis, etc.), the suggested prophylactic therapeutic range is an INR of 2.5-3.5. Blood BLOOD SPECIMEN / Unknown Lab Venipuncture / Unknown 09/14/2022 3:13 PM CDT 09/14/2022 4:00 PM CDT Coy Gómez MD LAB - COAGULATION OR DERABLES [facility] [address] [place] [address], [facility] [phone] * (ABNORMAL) CBC WITH DIFFERENTIAL (09/14/2022 3:13 PM CDT) WBC 6.7 3.5 - 10.5 10? 3 /uL 09/14/2022 4:11 PM T [facility] RBC 4.31 3.80 - 5.20 10? 6 /uL 09/14/2022 4:11 PM [facility] Hemoglobin 13.1 12.0 - 15.6 g/dL 09/14/2022 [...] 0.0 - 6.0 % 09/14/2022 4:11 PM T [facility] Basophil % 1.4 0.0 - 2.0 % 09/14/2022 4:11 PM [facility] Neutrophils Absolute 4.08 1.60 - 7.00 10? 3 /uL 09/14/2022 4:11 PM [facility] Lymphocyte Absolute 1.75 1.10 - 3.90 10? 3 /uL 09/14/2022 4:11 PM T [facility] Monocytes Absolute 0.66 0.26 - 1.07 10? 3 /uL 09/14/2022 4:11 PM T [facility] Eosinophils Absolute 0.06 0.00 - 0.47 10? 3 /uL 09/14/2022 4:11 PM [facility] Basophils Absolute 0.09(H) 0.00 - 0.08 10? 3 /uL 09/14/2022 4:11 PM [facility] Immature Granulocytes % 0.3 0.0 - 1.0 % 09/14/2022 4:11 PM [facility] Immature Granulocytes Absolute 0.02 09/14/2022 4:11 PM [facility] Blood BLOOD SPECIMEN / Unknown Lab Venipuncture / Unknown 09/14/2022 3:13 PM CDT 09/14/2022 4:00 PM CDT Coy Gómez MD LAB - HEMATOLOGY ORD ERABLES [facility] [address] [place] [address], [facility] [phone] * (ABNORMAL) BASIC METABOLIC PANEL (CALCIUM TOTAL) (09/14/2022 3:13 PM CDT) BUN 12 7 - 26 mg/dL 09/14/2022 4:25 PM T [facility] Creatinine 0.93 0.56 - 0.96 mg/dL 09/14/2022 4:25 PM [facility] Sodium 140 136 - 145 mmol/L 09/14/2022 4:25 PM [facility] Potassium 3.9 3.5 - 4.5 mmol/L 09/14/2022 4:25 PM [facility] Chloride 103 98 - 107 mmol/L 09/14/2022 4:25 PM [facility] CO2 27 22 - 29 mmol/L 09/14/2022 4:25 PM [facility] Glucose 98 70 - 115 mg/dL 09/14/2022 4:25 PM [facility] Calcium 9.0 8.4 - 10.2 mg/dL 09/14/2022 4:25 PM [facility] Anion Gap 14 8 - 18 [...] Gómez MD LAB - CHEMISTRY [facility] Organization Address City/State/ZIP Co de Phone Number [facility] [address] [place] [address], [facility] [phone] * XR CHEST 2VW (09/14/2022 3:08 PM CDT) Anatomical Region Laterality Modality Chest Radiographic Ewa ging 09/14/2022 3:09 PM CDT Narrative 09/14/2022 3:54 PM CDT PROCEDURE: ??XR CHEST 2VW, DATE/TIME OF EXAM: ??09/14/2022 3:09 PM, LOCATION [facility] INDICATION: Z01.818: Pre-op testing ADDITIONAL CLINICAL INFORMATION: COMPARISON: No prior study is available for comparison. FINDINGS/IMPRESSION: Calcified granuloma of right upper lung field is seen. There is no focal consolidation, pleural effusion, or pneumothorax. The cardiomediastinal silhouette is normal. The visible bony thorax is intact. > Dictated by Wayne Carbajal MD (student life vice president). Zi Mckeon MD have personally reviewed and interpreted this examination/study. > Interpreting Provider: Zi Vee MD on 09/14/2022 3:54 PM Procedure Note iZ Vee MD - 09/14/2022 PROCEDURE: XR CHEST 2VW, DATE/TIME OF EXAM: 09/14/2022 3:09 PM, LOCATION [facility] INDICATION: Z01.818: Pre-op testing ADDITIONAL CLINICAL INFORMATION: COMPARISON: No prior study is available for comparison. FINDINGS/IMPRESSION: Calcified granuloma of right upper lung field is seen. There is no focal consolidation, pleural effusion, or pneumothorax. The cardiomediastinal silhouette is normal. The visible bony thorax is intact. > Dictated by Wayne Carbajal MD (student life vice president). Zi Mckeon MD have personally reviewed and interpreted this examination/study. > Interpreting Provider: Zi Vee MD on 33:54 PM Coy Gómez MD DIAGNOSTIC IMAGING O RDERABLES * EKG 12-LEAD (09/14/2022 1:58 PM CDT) Ventricular Rate 87 BPM [facility] MUSE Atrial Rate 87 BPM [facility]USE P-R Interval 118 ms [facility] MUSE QRS Duration ms 80 ms [facility] MUSE Q-T Interval ms 376 ms SL MUSE QTC Calculation (Bezet) 452 ms SL MUSE Calculated P Castaner 52 degrees [facility] MUSE Calculated R Castaner 39 degrees [facility] MUSE Calculated T Castaner 56 degrees [facility] MUSE Interpretation EKG NORMAL SINUS RHYTHM NONSPECIFIC ST ABNORMALITY ABNORMAL ECG NO PREVIOUS ECGS AVAILABLE Confirmed by Lulu ROMERO, Hermelinda ([id number]) on 09/14/2022 11:29:48 PM [facility] MUSE 09/14/2022 1:58 PM CDT 09/14/2022 11:29 PM CDT Coy Gómez MD ECG ORDERABLES [facility] MUSE documented in this encounter Visit Diagnoses Diagnosis Pre-op testing- Primary Preoperative examination, unspecified Pre-op testing Preoperative examination, unspecified documented in this encounter Care Teams Cherry Grower Relationship Specialty Start Date End Date Taniya Grimes MD [address] [place] [phone] PCP - General 07/15/22 10/06/22 Adriana Adams DO [address] [place] [phone] Resident - PCP Internal Medicine 04/06/22 01/12/23 documented as of this encounter
--- OUTSIDE RECORDS SUMMARY | 2024-07-23 07:12 | XMS_ITS | Encounter Summary ---
Author Organization [facility] Address [address] [facility] [place] [address] Care Team Providers Care Aerospace Project Engineer Name Role Phone Adriana Adams DO Unavailable Taniya Grimes MD Primary Care Provider Reason for Visit * Reason Onset Date Comments Future Appointment 09/14/2022 Encounter Details Date Type Department Care Team (Late st Contact Info) Description 09/14/[address] [address] Haleigh Hurt, JOSY Future Appointment Social History Tobacco Use Types Packs/Day [...] Coronavirus/COVID-19? No / Unsure 09/02/2022 2:14 PM BIG DATA LEAD documented as of this encounter Functional Status [...] Telephone Encounter - Haleigh Hurt RN - 09/14/2022 11:14 AM CDT Called patient to set up follow-up with Dr. Mcintosh and [facility]. Patient agreed to come in tomorrow, 09/15/22, at 1PM. documented in this encounter Plan of Treatment Upcoming Encounters Date Type Department Care Team (Late st Contact Info) Description 07/25/2024 10:00 AM BIG DATA LEAD Office Visit [facility] - Endocrinology [address] [place] [phone] Yosi Bustamante MD [address] [place] [address] 2L [place] [address] 07/26/2024 10:00 AM BIG DATA LEAD Appointment [facility] DI[facility]IC RAD [address] [place] [address] Neri Delgado MD [address] [place] [address] 07/26/2024 10:00 AM BIG DATA LEAD Office Visit [facility] - ENT [address] [place] [phone] Myra Farmer, DRYER OPERATOR [address] [place] [address] 2L [place] [phone] 07/26/2024 11:15 AM BIG DATA LEAD Office Visit [facility] - ENT [address] [place] [phone] Neri Delgado MD [address] [place] [address] 08/02/2024 2:20 PM BIG DATA LEAD Appointment [facility] [address] [place] [address] 08/02/2024 3:00 PM BIG DATA LEAD Office Visit [facility] - Hematology/Oncology [address] [place] [phone] Remi Beckett MD [address] [place] [phone] 08/18/2024 1:45 PM BIG DATA LEAD Office Visit [facility] - ENT [address] [place] [phone] Neri Delgado MD [address] [place] [address] documented as of this encounter Visit Diagnoses Not on filedocumented in this encounter Care Teams Aerospace Project Engineer Relationship Specialty Start Date End Date Taniya Grimes MD [address] [place] [address] OF [place] [phone] PCP - General 07/15/22 10/06/22 Adriana Adams DO [facility] [place]note 2][address] [place] [phone] Resident - PCP Internal Medicine 04/06/22 01/12/23 documented as of this encounter
--- OUTSIDE RECORDS SUMMARY | 2024-07-23 07:12 | XMS_ITS | Encounter Summary ---
Author Organization [facility] Health Address [address] [facility] [place] [address] Care Team Providers Care Biomedical Field Service Engineer Name Role Phone Adriana Adams DO Unavailable Taniya Grimes MD Primary Care Provider Reason for Referral * Radiology Services (Routine) - Closed Specialty Diagnoses / Procedures Referred By Contricardo t Referred To Contact CT Scan Diagnoses Rotator cuff arthropathy of left shoulder Pre-op testing Procedures CT CUSTOM SHOULDER LT REPLACEMENT Mary Beth Lauren MD [address] [facility] [address] [place] [address] [facility] [address] [place] [address] Referral ID Status Reason Start Date Expiration Date Visits Re quested Visits Authorized [id number] Closed 09/23/2022 09/23/2023 1 1 E CARE PHYSICAL THERAPIST Encounter Details Date Type Department Care Team (Late st Contact Info) Description 09/03/2022 Orders Only [facility] - Orthopedics [address] [facility], [place] [address] Mary Beth Lauren MD [address] [facility] [address] [place] [address] Rotator cuff arthropathy of left shoulder ; Pre-op testing Social History Tobacco Use Types Packs/Day Years [...] Coronavirus/COVID-19? No / Unsure 09/02/2022 2:14 PM ACUTE CARE PHYSICAL THERAPIST documented as of this encounter Functional Status [...] st Contact Info) Description 07/25/2024 10:00 AM ACUTE CARE PHYSICAL THERAPIST Office Visit [facility] - Endocrinology [address] [place] [phone] Yosi Bustamante MD [address] [place] [address] [place] [address] 07/26/2024 10:00 AM ACUTE CARE PHYSICAL THERAPIST Appointment [facility] DIAG[facility] RAD [address] [place] [phone] Neri Delgado MD [address] [place] [address] 07/26/2024 10:00 AM ACUTE CARE PHYSICAL THERAPIST Office Visit [facility] - ENT [address] [place] [phone] Myra Farmer, ADVANCED PRACTICE RN [address] [place] [address] [place] [phone] 07/26/2024 11:15 AM ACUTE CARE PHYSICAL THERAPIST Office Visit [facility] - ENT [address] [place] [phone] Neri Delgado MD [address] [place] [address] 08/02/2024 2:20 PM ACUTE CARE PHYSICAL THERAPIST Appointment [facility] [address] [place] [address] 08/02/2024 3:00 PM ACUTE CARE PHYSICAL THERAPIST Office Visit [facility] - Hematology/Oncology [address] [place] [phone] Remi Beckett MD [address] [place] [phone] 08/18/2024 1:45 PM ACUTE CARE PHYSICAL THERAPIST Office Visit [facility] - ENT [address] [place] [phone] Neri Delgado MD [address] [place] [address] documented as of this encounter Results * CT CUSTOM SHOULDER LT REPLACEMENT (09/25/2022 11:47 AM CDT) Anatomical Region Laterality Modality Upper Extremity Computed Tomogra phy 09/25/2022 2:53 PM CDT Narrative 09/26/2022 10:35 AM CDT PROCEDURE: ??CT CUSTOM SHOULDER LT REPLACEMENT, DATE/TIME OF EXAM: 09/25/2022 11:48 AM, LOCATION ??[facility] INDICATION: M12.812: Rotator cuff arthropathy of left [...] shoulder. Report dictated by Wayne Carbajal MD (residential appliance repair technician) Zi Mckeon MD have personally reviewed and interpreted this examination/study. > Interpreting Provider: iZ Vee MD on 09/26/2022 10:35 AM Procedure Note Zi Vee MD - 09/26/2022 PROCEDURE: CT CUSTOM SHOULDER LT REPLACEMENT, DATE/TIME OF EXAM: 09/25/2022 11:48 AM, LOCATION [facility] INDICATION: M12.812: Rotator cuff arthropathy of left [...] shoulder. Report dictated by Wayne Carbajal MD (residential appliance repair technician) Zi Mckeon MD have personally reviewed and interpreted this examination/study. > Interpreting Provider: Zi Vee MD on 0:35 AM Mary Beth Lauren MD CT ORDERABLES documented in this encounter Visit Diagnoses Diagnosis Rotator cuff arthropathy of left shoulder- Primary Pre-op testing Preoperative examination, unspecified Rotator cuff arthropathy of left shoulder Pre-op testing Preoperative examination, unspecified documented in this encounter Care Teams Biomedical Field Service Engineer Relationship Specialty Start Date End Date Taniya Grimes MD [address] [address] PCP - General 07/15/22 10/06/22 Adriana Adams DO [address] [place] [address] Resident - PCP Internal Medicine 04/06/22 01/12/23 documented as of this encounter
--- OUTSIDE RECORDS SUMMARY | 2024-07-23 07:12 | XMS_ITS | Encounter Summary ---
Author Organization [facility] Health Address [address] [place] [address] Care Team Providers Care Religion Professor Name Role Phone Adriana Adams DO Unavailable Taniya Grimes MD Primary Care Provider [phone] Encounter Details Date Type Department Care Team (Latest Contact Info) Description 09/18/2022 10:31 AM CDT - 09/18/2022 11:59 PM CDT Hospital Encounter [facility] [address] [place], [place] [phone] Marcio Mcintosh MD [address] [place], [place] [phone] Discharge Disposition: Home or Self Care Social [...] Coronavirus/COVID-19? No / Unsure 09/02/2022 2:14 PM SECURITY STRATEGIST documented as of this encounter Functional Status [...] A DAY 60 capsule 11 02/22/2022 05/28/2023 [id number] PO Take by mouth once daily 06/13/2023 celecoxib (CELEBREX) 200 MG capsuleIndications:Nicoel stahl osteoarthritis of left hip Take 1 [...] fluticasone propionate (FLONASE) 50 MCG/ACT nasal spray [place] 2 (two) sprays into each nostril once daily 48 g 10/20/2021 11/25/2022 gabapentin (Neurontin) 300 MG capsuleIndications:Nicole favio osteoarthritis of left hip Take 1 (one) capsule by mouth 3 times daily 90 capsule 5 04/06/2022 11/19/2022 [id number] -HYAL PO Take 1 tablet by mouth [...] st Contact Info) Description 07/25/2024 10:00 AM SECURITY STRATEGIST Office Visit [facility] - Endocrinology [address] [place] [phone] Yosi Bustamante MD [address] [place] [address] 2L [place] [address] 07/26/2024 10:00 AM SECURITY STRATEGIST Appointment [facility] DIAGNOSTIC RAD [address] [place] [phone] Neri Delgado MD [address] [place] [phone] 07/26/2024 10:00 AM SECURITY STRATEGIST Office Visit [facility] - ENT [address] [place] [phone] Myra Farmer, LOG CUT OFF SAW[employer]ER [address] [place] [address] 2L [place] [phone] 07/26/2024 11:15 AM SECURITY STRATEGIST Office Visit [facility] - ENT [address] [place] [phone] Neri Delgado MD [address] [place] [phone] 08/02/2024 2:20 PM SECURITY STRATEGIST Appointment [facility] INFUSION CENTER [address] [place] [phone] 08/02/2024 3:00 PM SECURITY STRATEGIST Office Visit [facility] - Hematology/Oncology [address] [place] [phone] Remi Beckett MD [address] [place] [phone] 08/18/2024 1:45 PM SECURITY STRATEGIST Office Visit [facility] - ENT [address] [place] [phone] Neri Delgado MD [address] [place] [phone] documented as of this encounter Procedures Procedure Name Priority Date/Time Associated Diagnosis Comments RAD ONC ARIA SESSION SUMMARY Routine 09/18/2022 11:07 AM CDT documented in this encounter Results * Rad Onc Aria Session Summary (09/18/2022 [...] on filedocumented in this encounter Care Teams Religion Professor Relationship Specialty Start Date End Date Taniya Grimes MD [address] [facility] 2L [facility] [place] [phone] PCP - General 07/15/22 10/06/22 Adriana Adams DO [address] [place] [phone] Resident - PCP Internal Medicine 04/06/22 01/12/23 documented as of this encounter
--- OUTSIDE RECORDS SUMMARY | 2024-07-23 07:12 | XMS_ITS | Encounter Summary ---
Author Organization [facility] Health Address [address] [facility] [place] [address] Care Team Providers Care Chocolate Temperer Name Role Phone Adriana Adams DO Unavailable Taniya Grimes MD Primary Care Provider Reason for Visit * Reason Onset Date Comments Future Appointment 09/17/2022 Encounter Details Date Type Department Care Team (Late st Contact Info) Description 09/17/[address] [address] Haleigh Hurt, JOSY Future Appointment [...] Coronavirus/COVID-19? No / Unsure 09/02/2022 2:14 PM COMMUNICATION SPEC documented as of this encounter Functional Status [...] Telephone Encounter - Haleigh Hurt RN - 09/17/2022 3:01 PM CDT Spoke with patient to let her know that Dr. Mcintosh would like to start her Radiation treatment tomorrow at 1045. Also let the patient know that we are still waiting on insurance approval and she should not start on her way in until she hears from us. We will check with the insurance company again tomorrow and call her in the morning. Patient verbalized understanding to all. documented in this encounter Plan of Treatment Upcoming Encounters Date Type Department Care Team (Late st Contact Info) Description 07/25/2024 10:00 AM COMMUNICATION SPEC Office Visit [facility] - Endocrinology [address] [place] [phone] Yosi Bustamante MD [address] [place] [address] 2L [place] [address] 07/26/2024 10:00 AM COMMUNICATION SPEC Appointment [facility] DIAGNOSTIC RAD [address] [place] [phone] Neri Delgado MD [address] [place] [phone] 07/26/2024 10:00 AM COMMUNICATION SPEC Office Visit [facility] - ENT [address] [place] [phone] Myra Farmer, ZAIN [address] [place] [address] 2L [place] [phone] 07/26/2024 11:15 AM COMMUNICATION SPEC Office Visit [facility] - ENT [address] [place] [phone] Neri Delgado MD [address] [place] [address] 08/02/2024 2:20 PM COMMUNICATION SPEC Appointment [facility] INFUSION CENTER [address] [place] [address] 08/02/2024 3:00 PM COMMUNICATION SPEC Office Visit [facility] - Hematology/Oncology [address] [place] [phone] [place] [address] [place] [phone] 08/18/2024 1:45 PM COMMUNICATION SPEC Office Visit [facility] - ENT [address] [place] [phone] Neri Delgado MD [address] [place] [phone] documented as of this encounter Visit Diagnoses Not on filedocumented in this encounter Care Teams Chocolate Temperer Relationship Specialty Start Date End Date Taniya Grimes MD [address] [place] [address] 2L [place] [phone] PCP - General 07/15/22 10/06/22 Adriana Adams DO [address] [place] [phone] Resident - PCP Internal Medicine 04/06/22 01/12/23 documented as of this encounter
--- OUTSIDE RECORDS SUMMARY | 2024-07-23 07:12 | XMS_ITS | Encounter Summary ---
Author Organization [facility] Address [address] [facility] [place] [address] Care Team Providers Care Bus Info Consultant Name Role Phone Adriana Adams DO Unavailable Taniya Grimes MD Primary Care Provider Reason for Visit * Auth/Cert (Routine) Specialty Diagnoses / Procedures Referred By Contac t Referred To Contact Diagnoses Cervical spine tumor spine tumor Procedures FUSION POSTERIOR CERVICAL (PCF) Referral ID Status Reason Start Date Expiration Date Visits Re quested Visits Authorized [id number] 1 1 Encounter Details Date Type Department Care Team (Late st Contact Info) Description 10/02/2022 7:27 AM CDT Anesthesia Event [facility] [address] [place] [id number] Maryjane Chapman MD [address] [place] [address] Ioana Reddy MD [address] [facility] [place] [address] Anesthesia Record Procedure Summary Procedure Name Responsible Anesthesiologist Anesthesia Start Time Anesthesia Stop Time C2-T2 fusion and decompression C3-C7 and resection extramedullary spine tumor Maryjane Chapman MD 10/02/22 0727 10/02/22 1129 Events Date Time Event Comment 10/02/2022 0711 0727 An Start 0727 Pt In Room 0727 An Start Data 0729 PT Reassessment 0729 Induction 0735 An Intubation 0738 Insert Art Line 0751 Lowery Pins Applied 0756 Pt Repositioned 0822 Anes Ready 0822 Time Out Anesthesia part icipated in timeout at the time documented in the record by nursing 0822 Proc Start 1116 Proc Stop 1118 An Emergence 1123 Extubation 1124 an stop data 1126 Pt out of Room 1126 ANPTO2 1129 An Stop Meds Name Total ceFAZolin 2,000 mg IVPB 2 g fentaNYL 100 mcg/2ml injection 100 mcg lidocaine PF 2% 60 mg propofol 200mg/20mL injection 200 mg rocuronium 50 mg/5 mL injection 60 mg phenylephrine 100 mcg/mL syringe 300 mcg dexamethasone 10 mg/ml PF injection 10 m g ondansetron 4mg/2mL injection 4 mg hydromorphone 2 mg/10mL prefilled syring e 0.4 mg sugammadex 200 mg/2mL injection 200 mg tranexamic acid (Cyklokapron) 1000 mg/10 mL injection 1,368.85 mg remifentanil (Ultiva) 2 mg in 0.9% NaCl IV 50 mL infusion 1 mg propofol 500 mg/50 mL 879.06 mg phenylephrine 20 mg in 250 mL 1.55 mg LR (Lactated ringers) 500 mL Isolyte-S infusion 1,000 mL * Agents Name Insp. N2O Exp. Sevoflurane Exp. N2O O2 Air Insp. Sevoflurane * Blood No blood administrations on file. [...] Procedural Site (Incision) 10/02/22; 0906; Back; 10/07/22; 1812 10/02/22 0906 by Juliette Crum RN 10/07/22 1812 [...] [facility] - [...] Coronavirus/COVID-19? 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] Mental Status: awake, alert, oriented, sufficiently recovered from acute administration of anesthesia to participate in the evaluation, neurologic status has returned to expected level of consciousness and neurologic status has returned to preoperative level Neuro Status: No numbness, tingling or visual disturbances Respiratory Function: natural Cardiac Function: stable Postop Pain: adequate (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 * Maryjane Chapman MD - 10/02/2022 12:54 PM CDT ANESTHESIA POSTOP EVALUATION NOTE Procedure: C2-T2 fusion and decompression C3-C7 and resection extramedullary spine tumor Brisa Hogan is a 62 year old female Patient Vitals for the past 6 hrs: BP Temp Pulse Resp SpO2 Pain Rating Score #1 Pain Scale/Observation Pulse - (SPO2/Cuff) 10/02/22 0700 (!) 157/100 -- 80 12 97 % -- -- 81 bpm 10/02/22 0715 162/99 -- 79 14 94 % -- -- 78 bpm 10/02/22 1126 133/78 97.5 ??F (36.4 ??C) 81 10 98 % 0 F;B -- 10/02/22 1127 -- -- 80 21 -- -- -- -- 10/02/22 1128 -- -- 82 10 -- -- -- -- 10/02/22 1129 -- -- 82 21 -- -- -- -- 10/02/22 1130 136/88 -- 81 12 -- -- -- -- 10/02/22 1131 -- -- 80 26 -- -- -- -- 10/02/22 1135 123/99 -- 81 19 100 % -- -- -- 10/02/22 1140 129/80 -- 80 22 98 % -- -- -- 10/02/22 1145 121/86 -- 78 30 (!) 78 % -- -- -- 10/02/22 1146 -- -- -- -- 97 % -- -- -- 10/02/22 1147 -- -- -- -- 96 % 9 B;F -- 10/02/22 1150 135/85 -- 74 -- 100 % -- -- -- 10/02/22 1153 115/72 -- 75 -- 100 % 8 B;F -- 10/02/22 1155 115/72 -- 79 -- 100 % -- -- -- 10/02/22 1200 132/82 -- 80 -- 98 % -- -- -- 10/02/22 1201 132/82 -- 80 -- 98 % 8 B;F -- 10/02/22 1205 144/83 -- 79 -- (!) 88 % -- -- -- 10/02/22 1206 -- -- -- -- 99 % -- -- -- 10/02/22 1210 143/87 -- 80 -- 100 % -- -- -- 10/02/22 1215 149/89 -- 84 -- 100 % -- -- -- 10/02/22 1220 151/91 -- 84 -- 100 % -- -- -- 10/02/22 1225 (!) 161/101 -- 87 -- 100 % -- -- -- 10/02/22 1227 (!) 161/101 -- 87 -- 100 % 7 B;F -- 10/02/22 1230 162/88 -- 89 -- 100 % -- -- -- 10/02/22 1235 163/86 -- 86 -- 100 % -- -- -- 10/02/22 1240 170/84 -- 86 -- 100 % -- -- -- 10/02/22 1245 143/81 -- 86 -- 100 % -- -- -- 10/02/22 1249 143/81 -- 87 -- 100 % 0 B;F -- Anesthesia Type: general ETT Pre-op Diagnosis Codes: * 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 * Maryjane Chapman MD - 09/14/2022 2:11 PM CDT ANESTHESIA PREOPERATIVE EVALUATION NOTE Procedure: C2-T2 fusion and decompression C3-C7 and resection extramedullary spine tumor Vitals: Patient Vitals for the past 6 hrs: BP Temp Pulse SpO2 09/14/22 1421 147/87 97.7 ??F (36.5 ??C) 94 96 % LMP: No LMP recorded. Patient is postmenopausal. 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 Pt reports METs <4 due to pain (likely 2/2 cancer). No chest pain or SOB. Allergies: Kiwi Shellfish The patient is a current smoker. The patient was instructed to abstain from smoking on day of procedure. Physical Exam: Orientation X3 Airway/Mallampati Score: I Mouth Opening Distance: 3 fingerwidths Neck ROM: full TM Distance: > 3 FB Teeth: chipped (R upper molar) Heart: normal - S1 S2 Lungs: clear to ausculation bilaterally Abdomen Exam: normal Review of Systems: History of anesthetic complications: No Sleep Apnea Risk: No Malignant Hyperthermia: No GERD: Yes, well controlled Poor Exercise Tolerance: No Recent Chest Pain: No Shortness of Breath: No AICD/Pacemaker: No Renal Disease: No Diagnostic Tests: ECG(s) reviewed: Yes (NSR) Lab(s) reviewed: Yes. PAT evaluation start: (INSERT IN SIDE-BAR IMMEDIATELY AFTER DIAGNOSTIC TESTS. (F2 left / right click to select options below. CTRL-Z to undo) - if BP is poorly controlled (eg SBP >180 or DBP >110) then contact Dr. Rodriguez or AIC This evaluation was based on PAT clinic visit I. Perioperative Cardiac Risk Index Stratification based on 2014 ACC/AHA Guidelines for patients undergoing noncardiac surgery Perioperative risk of a Major Adverse Cardiac Event (MACE) during hospitalization. Add one point (0-6) for each positive RCRI (Revised Cardiac Risk Indicator) 1. Is the surgery high-risk? YES -major Neurosurgical spine or craniotomy 2. History of ischemic heart disease? NO If yes then paste summary of most recent cath / stress tests under Other Additional Findings/Comments section above: 3. History of CHF? no If yes then paste summary of most recent TTE / WILLY under Other Additional Findings/Comments sectionabove: New Murmur? no if yes and without recent echocardiogram then may need TTE contact Dr. Rodriguez or KRISS 4. History of cerebrovascular disease? Prior TIA or stroke no If yes then paste summary of most any relevant neurovascular imaging or carotid duplex results under Other Additional Findings/Comments section above: Carotid bruit ? no if yes and symptomatic then may need carotid duplex - contact Dr. Rodriguez or KRISS 5. Insulin-dependent Diabetes? NO 6. Preoperative creatinine > 2 mg/dl? no Baseline Cr? 1.1 Total RCRI / MACE score 1 Point >= 0.9% If MACE < 1%, no further testing required. Proceed to surgery. Patient is at low risk of MACE. If MACE > 1% Elevated risk. Need to assess the patient's functional capacity. 4 METs = Can walk up a flight of steps or a hill or walk on level ground at 3 mph If > 4 METs. Proceed to surgery. If < 4 METs or unknown functional capacity then discuss with attending, as further workup may beindicated. II. Consults: NO Copy and paste relevant results. Follow up N/A III. CIEDs Does patient have a CIED (cardiovascular implantable electronic device eg: PM, AICD)? no If yes then copy and paste interrogation report here. Timing of interrogation should be within 1 year for PM and Within 6 months for AICD [place] Information needed (physician coder, mode, indication for CIED, battery life, magnet function): If Biotronik device AND PM dependent AND surgical site above umbilicus then call local office at [phone] to schedule reprogramming of CIED (into asynchronous mode for PM and or turn off AICD if magnet mode not option) and write plan here. Please also call Dr Rodriguez or KRISS. IV. Anticoagulants Is patient receiving chronic antiplatelet/ anticoagulant medications? What is periop plan ? NO (patients with mechanical heart valves OR atrial fib on coumadin with a CHADS- VASc > 7 OR recentVTE within 3 months may need bridging) Follow up N/A V. Previous blood transfusion? no If yes AND EBL > 250ml then patient needs a recent T&S. Order T&S if none recently. If this is a phone review then patient needs to come in PRIOR to DOS for a T&S (call Dr Rodriguez or KRISS) to arrange. Order a 2nd T&S (re-type) for DOS If no previous blood product transfusion AND EBL >250 then order a T&S for DOS only VII. Known ALLISON or STOP-BANG> 5 no Snoring, feel Tired, Observed apnea, high blood Pressure, BMI >35, Age > 50, Neck circumference > 18 If pt has STOP-BANG >=5 with undiagnosed ALLISON and is being admitted then order: IP Consult to Oceanographer Physical (comment regarding consult for undiagnosed ALLISON) - Follow steps 2 and 3 above If pt has STOP-BANG >=5 with undiagnosed ALLISON and is outpatient and interested in setting up a sleep study then: - send [employer] message to CARMELLA and cc Dr. Rodriguez The patient was educated about potential implications of ALLISON on their perioperative course and recommendations for follow-up care and disease management were addressed, including inpatient consult tosleep medicine as above no VIII. Known or suspected difficult airway no and complete previous airway management section above If yes then: update [employer] problem list to include: difficult airway and call Dr. Rodriguez or AIC IX. Frailty screen: No data recorded X. Suboxone (Buprenorphine / Naloxone) therapy? N/A XI. Most recent EKG (summarize, do not copy and paste): . EKG needed within 6 months if: (ASA >=3 OR any RCRI) AND non-low risk procedure XII. Additional testing needed within 3 months prior to DOS (if possible, else on DOS) - CBC w/o diff if ASA >= 3 OR expected blood loss >250 OR previously abnormal - BMP if ASA >= 3 AND non low- risk procedure / previously abnormal - CMP (instead of BMP) for patient with chronic liver disease or previously abnormal -PT/ PTT/ INR if recent use of anticoagulants OR scheduled for major vascular procedures including aortic and carotid stents / aneurysm coiling / TIPS Additional testing needed on DOS : - EPOC blood glucose for patients w/ DM - EPOC whole blood K+ for patient with ESRD or poorly controlled K+ Labs ordered today including PAT and surgeon orders: CBC, BMP, PT/INR, PTT, T&S and CXR Labs/ tests ordered or in need of review on DOS: T&S Summary: Brisa Hogan is a 62 year old female presenting for C2-T2 fusion and decompression C3-C7 and resection extramedullary spine tumor. They have an ASA score of 3 and a RCRI / MACE score of 1 Point >= 0.9% Follow up results - have ALL the above ordered labs and vital signs been reviewed? NO - awaiting lab results as above They ARE NOT YET OPTIMIZED - PAT EVALUATION INCOMPLETE Gavin Mancilla DO 09/14/2022 2:54 PM for this procedure. Preoperative plan was not discussed w/ PAT attending (date and name). (please note that ALL RESIDENT charts must be discussed with the PAT director or designated person) PLEASE REMEMBER TO REFRESH THE VITAL SIGNS ABOVE BEFORE CLOSING ENCOUNTER ADDENDUM: Labs reviewed and WNL for this patient. Type and Screen negative for antibodies. CXR shows granuloma of RUL seen on prior PET scan. No acute pulmonary process seen. Pt is optimized for surgery. Gavin Mancilla DO 09/15/2022 9:03 AM PAT evaluation end: ANESTHESIA PLAN ASA Score: 3 NPO Status: No solids since midnight and No liquids within 2 hours Anesthesia Plan: general ETT Planned Induction: intravenous Planned Adjuncts: art line Planned Postop Destination: PACU Anesthetic plan was discussed with: patient Anesthetic Plan discussion was: Consented Use of blood products were discussed with: patient Use of blood product discussion was: Consented The patient's procedural Anesthetic Plan was discussed with the attending, anesthesiologist and resident. BMI, Height, Weight Tobacco History Estimated body mass index is 28.64 kg/m?? as calculated from the following: Height as of this encounter: 1.575 m (5' 2). Weight as of this encounter: 71 kg (156 lb 9.6 oz). Social History Tobacco Use Smoking Status Heavy Smoker ??? Packs/day: 0.25 ??? Years: 40.00 ??? Pack years: 10.00 ??? Types: Cigarettes ??? Start date: 07/22/1973 Smokeless Tobacco Never Tobacco Comments 1-2 cigarettes per day current smoker Alcohol History Drug History Social History Substance and Sexual Activity Alcohol Use No Social History Substance and Sexual Activity Drug Use Yes ??? Frequency: 1.0 times per week ??? 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 acetaminophen Take 2 (two) tablets by mouth every 6 hours as needed 09/14/2022 ??? atorvastatin TAKE 1 TABLET BY MOUTH EVERYDAY AT BEDTIME 09/14/2022 ??? buPROPion SR 12hr Take 1 (one) tablet by mouth 2 times daily 09/14/2022 ??? calcitriol TAKE 1 CAPSULE BY MOUTH TWICE A DAY 09/14/2022 ??? LZEQZAZ-FHOUZVQAH-HIRF PO Take by mouth once daily 09/14/2022 ??? celecoxib Take 1 (one) capsule by mouth once daily 09/14/2022 ??? cetirizine Take 1 (one) tablet by mouth once daily 09/14/2022 ??? clonazePAM Take 1.5 (one and one-half) tablets by mouth once daily 09/11/2022 ??? famotidine Take 1 (one) tablet by mouth 2 times daily as needed 09/14/2022 ??? fish oil/omega-3 fatty acids Take 1 (one) capsule by mouth 3 times daily with meals 09/14/2022 ??? fluticasone propionate [place] 2 (two) sprays into each nostril once daily 09/14/2022 ??? gabapentin Take 1 (one) capsule by mouth 3 times daily 09/14/2022 ??? QLBJGM-DOPOQRKEA-CFB-C-HYAL PO Take 1 tablet by mouth 3 times daily 09/14/2022 ??? levothyroxine TAKE 1 TABLET BY MOUTH EVERY DAY 09/14/2022 ??? oxyBUTYnin CR 24hr Take 1 (one) tablet by mouth once daily 09/14/2022 ??? pantoprazole EC TAKE ONE TABLET BY MOUTH ONCE DAILY FOR STOMACH 09/14/2022 ??? PARoxetine Take 1 (one) tablet by mouth once daily 09/14/2022 ??? traZODone Take 1 (one) tablet by mouth at bedtime 09/13/2022 ??? vitamin E Take 1 (one) capsule by mouth 3 times daily 09/14/2022 No current facility-administered medications for this encounter. Allergies: Allergies Allergen Reactions ??? Kiwi Extract Anaphylaxis ??? Shellfish Allergy Other Passed out after eating lobster but can eat shrimp and crab Relevant Problems Neuro/Psych (+) Headache Other (+) Lymphadenopathy of head and neck region Problem List: Patient Active Problem List Diagnosis Date Noted ??? Need for influenza vaccination 06/11/2022 Priority: Not Prioritized ??? Left shoulder pain 06/11/2022 Priority: Not Prioritized ??? Urinary incontinence 06/11/2022 Priority: Not Prioritized ??? Chronic pain after cancer treatment 06/11/2022 Priority: Not Prioritized ??? Depression, unspecified 05/22/2021 Priority: Not Prioritized ??? Neoplasm of uncertain behavior of skin 12/09/2020 Priority: Not Prioritized ??? Other seborrheic keratosis 12/09/2020 Priority: Not Prioritized ??? Postoperative hypothyroidism 10/14/2020 Priority: Not Prioritized ??? Thyroid cancer (CMS/HCC) 10/14/2020 Priority: Not Prioritized ??? Hypocalcemia 10/14/2020 Priority: Not Prioritized ??? Other hypoparathyroidism (CMS/HCC) 10/14/2020 Priority: Not Prioritized ??? Cellulitis 08/08/2020 Priority: Not Prioritized Woke up 5d prior to presentation w/ right ear pain and wound, 2 day prior had some purulent drainage from the site. Flushed with hydrogen peroxide. No fevers chills. No insects seen ??? Complete paralysis of right vocal cord 07/24/2020 Priority: Not Prioritized ??? Hoarseness 07/24/2020 Priority: Not Prioritized ??? 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 Lymphadenopathy of head and neck region 07/24/2020 Priority: Not Prioritized ??? Other psoriasis Priority: Not Prioritized ??? High cholesterol 09/06/2019 Priority: Not Prioritized ??? Primary osteoarthritis of left hip 12/07/2018 Priority: Not Prioritized ??? Nicotine dependence 11/19/2016 Priority: Not Prioritized ??? Psychophysiologic insomnia 11/19/2016 ??? Chronic fatigue 11/19/2016 ??? Snoring 11/19/2016 ??? Obsessive-compulsive disorder 11/19/2016 counting Overview: counting ??? Headache 11/19/2016 Medical History: Past Medical History: Diagnosis Date [...] Thyroid cancer (CMS/HCC) 10/14/2020 ??? Tracheal mass Surgical History: Past Surgical History: Procedure Laterality [...] DIRECT LARYNGOSCOPY WITH BIOPSY ??? 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 Patient is postmenopausal. Postmenopausal OB History No obstetric history on file. Covid Vaccine: Lab Results: Recent Labs Component Name 08/14/22 1521 POTASSIUM 3.6 CALCIUM 8.3* CO2 23 GLUCOSE 84 BUN 13 CREATININE 1.11* Recent Labs Component Name 08/14/22 1521 PHOS 4.2 Recent Labs Component Name 08/14/22 1521 TSH 208.891* No results found for requested labs within last 120 days. Recent Labs Result Component Current Result Anion Gap 16 (08/14/2022) eGFR by CKD-EPI 56 (L) (08/14/2022) documented in this encounter Procedure Notes * Ioana Reddy MD - 10/02/2022 8:28 AM CDTAssociated Order(s): ETT Placement Endotracheal Tube Placement: Patient Location: OR. Intubation Event Date/Time: 10/02/2022 7:35 AM Procedure: intubation (05191). Procedure Section: Induction: standard IV Patient Position: sniffing Mask Ventilation: easy. Blade Type: Rosita Blade [...] monitor and chest auscultation Tube secured with: adhesive tape. Dentition unchanged? Yes Difficult Airway? No. Procedure Start Time: 10/02/2022 7:35 AM. Procedure End Time: 10/02/2022 7:36 AM. Procedure Total Time: 1 minutes. Staff Section Anesthesia Provider: Maryjane Chapman MD, Performed the procedure * Ioana Reddy MD - 10/02/2022 8:27 AM CDTAssociated Order(s): Arterial Line Placement Arterial Line Placement Procedure Note Patient Location: OR. Procedure: Arterial Line (16244). Procedure Section Indications: continuous blood pressure monitoring. Skin Prep: Chloraprep. Orientation: Left. Site: radial. Site Identification: palpation. Sterile Technique: cap and mask. Gauge: 20. Seldinger Technique Used? Yes Number of Attempts: 1. Line Secured with: tape and Tegaderm. Procedure Tolerance: performed while patient under general anesthesia. Events: none. Procedure Start Time: 10/02/2022 7:38 AM. Procedure End Time: 10/02/2022 7:40 AM. Procedure Total Time: 2 minutes. Local Anesthetic Used? No Staff Section Anesthesia Provider: Ioana Reddy MD, Performed the procedure Provider #1: Maryjane Chapman MD. 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 -- Dispensed IK PRN 10/01/22202810/01/22 2200 0.9% NaCl injection 3 mL See Hyperspace for full Linked Orders Report. -- Dispensed IK EVERY 8 HOURS 10/01/22202810/02/22 1200 acetaminophen (Tylenol) tablet 650 mg 10/07 115 Sent PO EVERY 6 HOURS 10/02/22 10510/02/22 2100 atorvastatin (Lipitor) tablet 40 mg Note to Pharmacy: OP sig: TAKE 1 TABLET BY MOUTH EVERYDAY AT BEDTIME -- Sent PO AT BEDTIME 10/02/22 1059 10/02/22 1056 bisacodyl EC (Dulcolax) tablet 5 mg -- Sent PO DAILY PRN 10/02/22 10510/02/22 1130 buPROPion SR 12hr (Wellbutrin-SR) tablet 100 mg Note to Pharmacy: OP sig: Take 1 (one) tablet by mouth 2 times daily -- Sent PO 2 TIMES DAILY 10/02/22 1059 10/02/22 1600 calcitriol (Rocaltrol) capsule 0.5 mcg Note to Pharmacy: OP sig: TAKE 1 CAPSULE BY MOUTH TWICE A DAY -- Sent PO 2 times daily 10/02/22 1059 10/02/22 1100 chlorhexidine (Peridex) 0.12 % oral solution 15 mL -- Sent MT 2 TIMES DAILY 10/02/22 1055 10/02/22 1130 clonazePAM (KlonoPIN) tablet 0.75 mg Note to Pharmacy: OP sig: Take 1.5 (one and one-half) tablets by mouth once daily -- Sent PO DAILY 10/02/22 1059 10/02/22 1058 cyclobenzaprine (Flexeril) tablet 5 mg Note to Pharmacy: OP sig: Take 1 (one) tablet by mouth 3 times daily as needed (muscle spasms) -- Sent PO 3 TIMES DAILY PRN 10/02/22 1059 10/02/22 1130 famotidine (Pepcid) tablet 20 mg -- Sent PO 2 TIMES DAILY 10/02/22 1055 10/02/22 1200 fish oil/omega-3 fatty acids (Promega;Cardi-[place] 3) capsule 1,000 mg Note to Pharmacy: OP sig: Take 1 (one) capsule by mouth 3 times daily with meals -- Sent PO 3 TIMES DAILY WITH MEALS 10/02/22 1059 10/02/22 1130 fluticasone propionate (Flonase) nasal spray 2 spray Note to Pharmacy: OP sig: [place] 2 (two) sprays into each nostril once daily -- Sent EACH NOSTRIL DAILY 10/02/22 1059 10/02/22 1130 gabapentin (Neurontin) capsule 300 mg Note to Pharmacy: OP sig: Take 1 (one) capsule by mouth 3 times daily -- Sent PO 3 TIMES DAILY 10/02/22 1059 10/02/22 1053 hydrALAZINE (Apresoline) injection 10 mg -- Sent IV EVERY 30 MIN PRN 10/02/22 1055 10/02/22 1130 HYDROmorphone (Dilaudid) 10 mg/50 mL SUPERVISOR CAR [employer] YARD -- Verified IV SUPERVISOR [employer] YARD 10/02/22 1100 10/02/22 1053 labetalol (Normodyne; Trandate) injection 10 mg -- Sent IV EVERY 15 MIN PRN 10/02/22 1055 10/02/22 1130 levothyroxine (Synthroid) tablet 112 mcg Note to Pharmacy: OP sig: TAKE 1 TABLET BY MOUTH EVERY DAY -- Sent PO DAILY 10/02/22 1059 10/02/22 1130 lidocaine (Lidoderm) 5 % patch 1 patch 10/07 1129 Sent TD EVERY 24 HOURS 10/02/22 1055 10/02/22 1130 loratadine (Claritin) tablet 10 mg -- Sent PO DAILY 10/02/22 1059 10/02/22 1130 multivitamin daily tablet 1 tablet -- Sent PO DAILY 10/02/22 1055 10/02/22 1047 naloxone (Narcan) injection 0.2 mg -- Sent IV PRN 10/02/22 1055 10/02/22 1059 naloxone (Narcan) injection 0.2 mg -- Verified IV PRN 10/02/22 1100 10/02/22 1130 nicotine (Nicoderm CQ) patch 14 mg Note to Pharmacy: OP sig: Apply 1 (one) patch to skin once daily Patient not taking: Reported on 09/02/2022 -- Sent TD DAILY 10/02/22 1059 10/02/22 1055 ondansetron (disintegrating) (Zofran ODT) tablet 4 mg See Hyperspace for full Linked Orders Report. -- Sent PO EVERY 6 HOURS PRN 10/02/22 1055 10/02/22 1055 ondansetron (Zofran) injection 4 mg See Hyperspace for full Linked Orders Report. -- Sent IV EVERY 6 HOURS PRN 10/02/22 1055 10/02/22 1130 oxyBUTYnin CR 24hr (Ditropan-XL) tablet 5 mg Note to Pharmacy: OP sig: Take 1 (one) tablet by mouth once daily -- Sent PO DAILY 10/02/22 1059 10/02/22 1130 pantoprazole EC (Protonix) tablet 40 mg Note to Pharmacy: OP sig: TAKE ONE TABLET BY MOUTH ONCE DAILY FOR STOMACH -- Sent PO DAILY 10/02/22 1059 10/02/22 1130 PARoxetine (Paxil) tablet 40 mg Note to Pharmacy: OP sig: Take 1 (one) tablet by mouth once daily -- Sent PO DAILY 10/02/22 1059 10/02/22 1055 polyethylene glycol 3350 (Miralax) packet 17 g -- Sent PO DAILY PRN 10/02/22 1055 10/02/22 1130 senna (Senokot) tablet 17.2 mg -- Sent PO DAILY 10/02/22 1055 10/02/22 1055 simethicone (Mylicon) chew tablet 80 mg -- Sent PO EVERY 6 HOURS PRN 10/02/22 1055 10/02/22 2100 traZODone (Desyrel) tablet 50 mg Note to Pharmacy: OP sig: Take 1 (one) tablet by mouth at bedtime -- Sent PO AT BEDTIME 10/02/22 1059 10/02/22 1130 vitamin E (Tocopheryl) capsule 200 Units Note to Pharmacy: OP sig: Take 1 (one) capsule by mouth 3 times daily -- Sent PO 3 TIMES DAILY 10/02/22 1059 Post-op Diagnosis: * 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 Allergies Allergen Reactions ??? Kiwi Extract Anaphylaxis ??? Shellfish Allergy Other Passed out after eating lobster but can eat shrimp and crab Vitals: No data found. Lines, Drains, and Airways Type Details Placement Removal Peripheral IV Date: 10/02/22; Time: 06; Orientation: Posterior, Right; Location: Hand; Placed By:Anaya Boo RN; Gauge: 20 Gauge; Locals: None; Tolerance: Well 10/02/22 0645 by Taylor Decker RN ETT Date: 10/02/22; Time: 734; Placed By: Maryjane Chapman MD; Vent: easy mask; Induction: Standard IV; Blade Type: Rosita; Blade Size: 3; Laryngoscopy View: Grade 1 (full cords); Intubation Adjuncts: Stylet; Tube: Endotracheal Tube; Placement: Oral; Tube Type: Cuffed-inflated; Tube Size(mm): 6.5 MM; Depth of Insertion: 22 CM; Measured From: teeth; Attempts: 1; Cuff Infated: Air; Verified By:Direct visualization, Bilateral breath sounds, Chest Auscultation, CO2 Monitor 10/02/22 0735 by Ioana Reddy MD 10/02/22 1123 by Ioana Reddy MD Arterial Line Date: 10/02/22; Time: 07; Placed By: Ioana Reddy MD; Location: radial; Orientation: Left; Gauge: 20; Anesthetic Used: No; Line Secured: Taped; Tolerance: General Anesthesia 10/02/22 0738 by Ioana Reddy MD Peripheral IV Date: 10/02/22; Time: 07; Orientation: Left; Location: Hand; Placed By: Ioana Reddy MD; Gauge: 16 Gauge; Tolerance: General Anesthesia 10/02/22 0742 by Ioana Reddy MD Drain 10/02/22; 1027; Dr Gómez; 1; Round; Accordian; 15fr; Back; General Anesthesia 10/02/22 1027by Juliette Crum RN Intraprocedure I/O Totals Intake Isolyte-S infusion 1000.00 mL remifentanil (Ultiva) 2 mg in 0.9% NaCl IV 50 mL infusion 24.37 mL Total Intake 1024.37 mL Output Urine 550 mL Estimated Blood Loss 150 mL Total Output 700 mL Net Net Volume 324.37 mL Patient Transfer Location: PACU Transport Airway: spontaneous respirations and supplemental O2 Transport Monitoring: heart rate and continuous pulse oximetry Complications: None Handoff Given? Yes Checklist or Protocol - The perez handoff elements that must be included in the transfer of care checklist include: 1. Identification of patient. 2. Identification of responsible practitioner (PACU nurse or advanced practitioner). 3. Discussion of pertinent medical history. 4. Discussion of the surgical/procedure course (procedure, reason for surgery, procedure performed). 5. Intraoperative anesthetic management and issue/concerns. 6. Expectations/Plans for the early post-procedure period. 7. Opportunity for questions and acknowledgement of understanding of report from the receiving PACUteam. Ioana Reddy MD documented in this encounter Plan of Treatment Upcoming Encounters Date Type Department Care Team (Late st Contact Info) Description 07/25/2024 10:00 AM STORE LEADER Office Visit [facility] - Endocrinology [address] [place] [phone] Yosi Bustamante MD [address] [place] [address] [address]L [place] [address] 07/26/2024 10:00 AM STORE LEADER Appointment [facility] [address] [place] [phone] Neri Delgado MD [address] [place] [phone] 07/26/2024 10:00 AM STORE LEADER Office Visit [facility] - ENT [address] [place] [phone] Myra Farmer, ZAIN [address] [place] [address] 2[address] [place] [phone] 07/26/2024 11:15 AM STORE LEADER Office Visit [facility] - ENT [address] [place] [phone] Neri Delgado MD [address] [place] [phone] 08/02/2024 2:20 PM STORE LEADER Appointment [facility] [address] [place] [address] 08/02/2024 3:00 PM STORE LEADER Office Visit [facility] - Hematology/Oncology [address] [place] [phone] Remi Beckett MD [address] [place] [phone] 08/18/2024 1:45 PM STORE LEADER Office Visit [facility] - ENT [address] [place] [phone] Neri Delgado MD [address] [place] [phone] documented as of this encounter Procedures Procedure Name Priority Date/Time Associated Diagnosis Comments ENDOTRACHEAL TUBE NOTE Routine 10/02/2022 8:28 AM CDT ARTERIAL LINE NOTE Routine 10/02/2022 8: 27 AM CDT documented in this encounter Results * ETT LINE PERFORMABLE (10/02/2022 8:28 AM CDT) Narrative Ioana Reddy MD - 10/02/2022 8:28 AM CDT Ioana Reddy MD ? 10/02/2022 ??8:29 AM Endotracheal Tube Placement: ? Patient Location: OR. Intubation Event Date/Time: ??10/02/2022 7:35 AM Procedure: intubation (10480). Procedure Section: ?? Induction: standard IV Patient [...] Note Patient Location: OR. Procedure: Arterial Line (25807). Procedure Section ?? Indications: continuous blood pressure [...] Maryjane Chapman MD GENERAL ANESTHESIA O RDERABLES documented in this encounter Visit Diagnoses Not on filedocumented in this encounter Administered Medications Inactive Administered Medications - up to 3 most recent administrations Medication Order MAR Action Action Date Dose Rate Site ceFAZolin (Ancef) 2,000 mg in 50 mL IVPB Intravenous, PRN, Starting on Wed10/02/22 at 0756, Until Wed10/02/22 at 1131, Anesthesia Intra-op $ Given 10/02/2022 7:56 AM CDT 2 g dexAMETHasone Sod Phosphate PF injection Intravenous, PRN, Starting on Wed10/02/22 at 0825, Until Wed10/02/22 at 1131, Anesthesia Intra-op $ Given 10/02/2022 8:25 AM CDT 10 mg fentaNYL (PF) (Sublimaze) injection Intravenous, PRN, Starting on Wed10/02/22 at 0729, Until Wed10/02/22 at 1131, Anesthesia Intra-op $ Given 10/02/2022 7:29 AM CDT 100 mcg HYDROmorphone HCl-NaCl 2-0.9 MG/10ML-% SOSY Intravenous, PRN, Starting on Wed10/02/22 at 1028, Until Wed10/02/22 at 1131, Anesthesia Intra-op $ Given 10/02/2022 10:28 AM CDT 0.4 mg isolyte-S pH 7.4 infusion Intravenous, CONTINUOUS PRN, Starting on Wed10/02/22 at 0807, Until Wed10/02/22 at 1131, Anesthesia Intra-op $ New Bag/Syringe 10/02/2022 8:07 AM CDT lactated ringers infusion Intravenous, CONTINUOUS PRN, Starting on Wed10/02/22 at 0727, Until Wed10/02/22 at 1131, Anesthesia Intra-op $ New Bag/Syringe 10/02/2022 7:27 AM CDT lidocaine HCl (PF) (Xylocaine MPF) 2 % injection Intravenous, PRN, Starting on Wed10/02/22 at 0729, Until Wed10/02/22 at 1131, Anesthesia Intra-op $ Given 10/02/2022 7:29 AM CDT 60 mg ondansetron (Zofran) injection Intravenous, PRN, Starting on Wed10/02/22 at 1038, Until Wed10/02/22 at 1131, Anesthesia Intra-op $ Given 10/02/2022 10:38 AM CDT 4 mg phenylephrine 100 mcg/mL injection Intravenous, PRN, Starting on Wed10/02/22 at 0816, Until Wed10/02/22 at 1131, Anesthesia Intra-op $ Given 10/02/2022 10:42 AM CDT 200 mcg $ Given 10/02/2022 8:16 AM CDT 100 mcg phenylephrine 20 mg in 250 mL NaCl 0.9% infusion Intravenous, CONTINUOUS PRN, Starting on Wed10/02/22 at 0816, Until Wed10/02/22 at 1131, Anesthesia Intra-op Restarted 10/02/2022 9:41 AM CDT 0.2 mcg/kg/min 9.555 mL/hr Restarted 10/02/2022 8:49 AM CDT 0.2 mcg/kg/min 9.555 mL/ hr $ New Bag/Syringe 10/02/2022 8:16 AM CDT 0.2 mcg/kg/min 9. 555 mL/hr propofol (Diprivan) infusion Intravenous, CONTINUOUS PRN, Starting on Wed10/02/22 at 0759, Until Wed10/02/22 at 113, Anesthesia Intra-op Rate Change 10/02/2022 9:32 AM CDT 75 mcg/kg/min 28.665 mL/hr $ New Bag/Syringe 10/02/2022 7:59 AM CDT 100 mcg/kg/min 38 .22 mL/hr propofol (Diprivan) injection Intravenous, PRN, Starting on Wed10/02/22 at 0751, Until Wed10/02/22 at 1131, Anesthesia Intra-op $ Given 10/02/2022 7:51 AM CDT 50 mg $ Given 10/02/2022 7:29 AM CDT 150 mg remifentanil (Ultiva) 2 mg in 0.9% NaCl IV 50 mL infusion Intravenous, CONTINUOUS PRN, Starting on Wed10/02/22 at 0759, Until Wed10/02/22 at 1131, Anesthesia Intra-op $ New Bag/Syringe 10/02/2022 7:59 AM CDT 0.1 mcg/kg/min 9.555 mL/hr rocuronium (Zemuron) injection Intravenous, PRN, Starting on Wed10/02/22 at 0731, Until Wed10/02/22 at 1131, Anesthesia Intra-op $ Given 10/02/2022 7:31 AM CDT 60 mg sugammadex (Bridion) injection Intravenous, PRN, Starting on Wed10/02/22 at 0810, Until Wed10/02/22 at 1131, Anesthesia Intra-op $ Given 10/02/2022 8:10 AM CDT 200 mg tranexamic acid (Cyklokapron) injection Intravenous, PRN, Starting on Wed10/02/22 at 0831, Until Wed10/02/22 at 1131, Anesthesia Intra-op $ New Bag/Syringe 10/02/2022 8:33 AM CDT 166.4 mg/hr 1.664 mL/hr $ Given 10/02/2022 8:31 AM CDT 1,000 mg documented in this encounter Care Teams Bus Info Consultant Relationship Specialty Start Date End Date Taniya Grimes MD [address] [place] [phone] PCP - General 07/15/22 10/06/22 Adriana Adams DO [address] [place] [phone] Resident - PCP Internal Medicine 04/06/22 01/12/23 documented as of this encounter
--- OUTSIDE RECORDS SUMMARY | 2024-07-23 07:12 | XMS_ITS | Encounter Summary ---
Author Organization [facility] Health Address [address] [facility] [place] [address] Care Team Providers Care Food Service Steward Name Role Phone Adriana Adams DO Unavailable Taniya Grimes MD Primary Care Provider Encounter Details Date Type Department Care Team (Latest Contact Info) Description 09/02/2022 10:00 AM DATA COMMUNICATIONS ANALYST - 09/02/2022 11:59 PM DATA COMMUNICATIONS ANALYST Hospital Encounter [facility] [place] [address] Gustavo Owens MD [address] [place], [place] [id number] Discharge Disposition: Home or Self Care Social [...] Coronavirus/COVID-19? No / Unsure 09/02/2022 2:14 PM DATA COMMUNICATIONS ANALYST documented as of this encounter Last Filed Vital Signs Vital Sign Reading Time Taken Comments Blood Pressure 152/100 09/02/2022 10:29 AM DATA COMMUNICATIONS ANALYST Pulse 82 09/02/2022 10:29 AM DATA COMMUNICATIONS ANALYST Temperature 36.7 ??C (98 ??F) 09/02/2022 10:29 AM DATA COMMUNICATIONS ANALYST Respiratory Rate 20 09/02/2022 10:29 AM DATA COMMUNICATIONS ANALYST Oxygen Saturation 99% 09/02/2022 10:29 AM DATA COMMUNICATIONS ANALYST Inhaled Oxygen Concentration - - Weight 70.5 kg (155 lb 6.4 oz) 09/02/2022 10:29 AM DATA COMMUNICATIONS ANALYST Height - - Body Mass Index 28.42 09/02/2022 9:00 AM DATA COMMUNICATIONS ANALYST documented in this encounter Functional Status Functional [...] daily 08/28/2022 celecoxib (CeleBREX) 200 MG capsuleIndications:Nicole lexii osteoarthritis of left [...] A DAY 60 capsule 11 02/22/2022 05/28/2023 [id number]-[id number]-GWOV PO Take by mouth once daily 06/13/2023 cefdinir (Omnicef) 300 MG capsule Take 1 (one) capsule by mouth every 12 hours 07/12/2022 09/14/2022 celecoxib (CELEBREX) 200 MG capsuleIndications:Nicole stahl osteoarthritis [...] fluticasone propionate (FLONASE) 50 MCG/ACT nasal spray [place] 2 (two) sprays into each nostril once daily 48 g 10/20/2021 11/25/2022 gabapentin (Neurontin) 300 MG capsuleIndications:Nicole stahl osteoarthritis of left hip Take 1 (one) capsule by mouth 3 times daily 90 capsule 5 04/06/2022 11/19/2022 CIPPZX-GVXOEHEHU-GSB-C -HYAL PO Take 1 tablet by mouth [...] new patch 12 hours later. 60 patch 08/03/2022 09/07/2022 methylPREDNISolone (Medrol Dosepak) 4 MG tablet Take by mouth as directed Follow package insert dosing for six day supply. 21 tablet 04/10/2022 09/14/2022 [facility] Natural Products (NEURIVA PO) Take 2 capsules by mouth every morning 09/14/2022 naproxen (Naprosyn) 500 MG tablet Take 1 [...] once daily 30 tablet 1 10/07/2022 01/14/2023 thyrotropin tayo (THYROGEN) injectionIndications:M alignant Neoplasm of Thyroid Inject 0.9 mg into muscle every 24 hours for 2 doses Reasons: Cancer of Thyroid 2 mL 02/06/2021 09/14/2022 vitamin E (TOCOPHERYL) 200 UNIT capsule Take 1 (one) capsule by mouth 3 times daily 06/13/2023 documented as of this encounter Progress Notes * Gustavo Owens MD - 09/02/2022 10:56 AM CST Images from the original note were not included. Radiation Oncology Consultation Note Department of Radiation Oncology [facility] Name: Brisa Hogan Age: [age] year old Sex: female : 1960 Date of Consult: 09/02/2022 Referring Physician: Yosi Bustamante MD Primary Care Physician: Taniya Grimes MD Medical Oncologist: Farm Reporter: Yosi Bustamante MD ENT Surgeon: Neri Delgado MD NeuroSurgeon: González Gómez MD Reason for Consultation: Evaluation for palliative management of metastatic thyroid cancer to the cervical spine CPT Code: 58454 ICD-10 Diagnosis: C79.51 Bone Mets Metastatic thyroid cancer Chief Complaint: Neck pain, cancer that has spread to the bone. History of Present Illness: Brisa Hogan is a 62 year old female who was found to have a right thyroid nodule an 2019. 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 Repeat biopsy of the right thyroid lobe on 08/01/2020 produced a diagnosis of follicular neoplasm. She then underwent a completion thyroidectomy and bilateral neck dissection on 08/19/2020. Pathology report describes papillary thyroid carcinoma with tall cell features and extra thyroidal extensionemanating from the right lobe. Tumor broach the inked surgical margins. Superior and inferior tracheal margins involved by tumor. Tumor involved the tracheal mucosa. Negative surgical margin obtained on the left tracheal wall excision site. The right superior tracheal wall showed evidence of submucosal involvement by tumor. Metastatic carcinoma in 2 of 3 nodes from the central neck.. Metastatic carcinoma in 0/14 left from level 2A, 1/14 from left level 3, 2/13 from left level 4 and 5, 2/5 fromright level 3, 2/22 from right level 2A, [...] who recommended surgical decompression and cervical spine stabilization. This neurosurgical procedure is being scheduled as soon as OR time allows. Patienthas been referred for further evaluation, education, and consideration of her postoperative radiation treatmentoptions. Past Medical History: Past Medical History: Diagnosis [...] DIRECT LARYNGOSCOPY WITH BIOPSY ??? Polypectomy cervical Allergies: Allergies Allergen Reactions ??? Kiwi Extract Anaphylaxis ??? Shellfish Allergy Other Passed out after eating lobster but can eat shrimp and crab Medications: Current Outpatient Medications Medication Sig Dispense Refill ??? acetaminophen (TYLENOL) 500 MG tablet Take 2 (two) tablets by mouth every 6 hours as needed ??? atorvastatin (Lipitor) 40 MG tablet TAKE 1 TABLET BY MOUTH EVERYDAY AT BEDTIME 30 tablet 3 ??? B Complex Vitamins (B COMPLEX 1 PO) Take by mouth once daily ??? buPROPion SR 12hr (Wellbutrin-SR) 100 MG tablet Take 1 (one) tablet by mouth 2 times daily ??? calcitriol (Rocaltrol) 0.5 MCG capsule TAKE 1 CAPSULE BY MOUTH TWICE A DAY 60 capsule 11 ??? JWSGPQV-LMXOXQXVQ-COIN PO Take by mouth once daily ??? cefdinir (Omnicef) 300 MG capsule Take 1 (one) capsule by mouth every 12 hours (Patient not taking: Reported on 09/02/2022) ??? celecoxib (CELEBREX) 200 MG capsule Take 1 (one) capsule [...] fluticasone propionate (FLONASE) 50 MCG/ACT nasal spray [place] 2 (two) sprays into each nostril once daily 48 g 0 ??? gabapentin (Neurontin) 300 MG capsule Take 1 (one) capsule by mouth 3 times daily 90 capsule 5 ??? TJJBZA-GPTIFOCGS-DTJ-C-HYAL PO Take 1 tablet by mouth 3 times daily ??? levothyroxine (Synthroid) 112 MCG tablet TAKE 1 TABLET BY MOUTH EVERY DAY 90 tablet 4 ??? lidocaine (Lidoderm) 5 % patch Apply 2 (two) patches to skin once daily Apply patch to most painful area and remove after 12 hours. May reapply a new patch 12 hours later. 60 patch 0 ??? methylPREDNISolone (Medrol Dosepak) 4 MG tablet Take by mouth as directed Follow package insertdosing for six day supply. (Patient not taking: Reported on 08/21/2022) 21 tablet 0 ??? Misc Natural Products (NEURIVA PO) Take 2 capsules by mouth every morning (Patient not taking: Reported on 08/21/2022) ??? naproxen (Naprosyn) 500 MG tablet Take [...] once daily (Patient not taking: Reported on 08/21/2022) 2 ??? thyrotropin tayo (THYROGEN) injection Inject 0.9 mg into muscle every 24 hours for 2 doses Reasons: Cancer of Thyroid 2 mL 0 ??? traZODone (DESYREL) 50 MG tablet Take 1 (one) tablet by mouth at bedtime ??? vitamin E (TOCOPHERYL) 200 UNIT capsule Take 1 (one) capsule by mouth 3 times daily No current facility-administered medications for this encounter. Social History: Social History Socioeconomic History ??? Marital status: Tobacco Use ??? Smoking status: Heavy Smoker Packs/day: 0.50 Years: 40.00 Pack years: 20.00 Types: Cigarettes Start date: 07/22/1973 ??? Smokeless tobacco: Never Vaping Use ??? Vaping Use: Never used Substance and Sexual Activity ??? Alcohol use: No ??? Drug use: Not Currently Types: Marijuana Comment: marijuana A FEW PUFFS DAILY for pain ??? Sexual activity: Yes Partners: Male Social History Narrative Lives with , also current tobacco user, has COPD. 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 Thyroid Disease Neg Hx Review of Symptoms: A comprehensive review of 12 systems was performed, is documented under Nursing flow sheet and is negative except for (if blank, all systems negative): System Assessment: Pain: Pain: Yes (intermittent neck, left shoulder, left arm, left hip pain. decreased rom left arm.) Nausea: Nausea: No Fatigue: Fatigue: Yes Sleep: Sleep: No Mobility: Mobility: Yes (rolling walker for left hip.) Bathing/Dressing: Bathing/Dressing: No Breathing: Breathing: No Mouth Sores: Mouth Sores: No Eating: Eating: No Indigestion: Indigestion: No Constipation: Constipation: No Diarrhea: Diarrhea: No Changes in Urination: Changes in urination: No Fevers: Fevers: No Skin Dry/Itchy: Skin dry/itchy: No Nasal: Nasal: No Hands/Feet: Tingling in hands/feet: Yes (left hand, left thumb numbness, intermittent left arm numbness.) Memory/Concentration: Memory/concentation: No Swelling: Swelling: No Appearance: Appearance: No Sexual: Mucous Membrances: Mucous Membranes: Moist Eye: Eyes: 0-No change analyst baseline Ears: Salivary Glands: Salivary Glands: 0-no change analyst baseline Pharynx and Esophagus: Pharynx and Esophagus: 0-No change analyst baseline Larynx: Larynx: 0-No change in baseline Upper GI: Upper GI: 0-no change analyst baseline Lower GI including pelvis: Lower GI including pelvis: 0-No change analyst baseline Lungs: Lungs: 0-No change analyst baseline Other: ECOG Performance Status: 2 Physical Exam: BP (!) 152/100 (BP SITE: RIGHT ARM, BP POSITION: SITTING) Pulse 82 Temp 98 ??F (Temporal) Resp 20 Wt 70.5 kg (155 lb 6.4 oz) SpO2 99% General: Normal appearing female in no acute distress. She is alert, oriented, but unable to use left arm. Skin: No unusual rashes or other abnormalities are noted Head: Normocephalic, without trauma Eyes: Sclera and conjunctiva clear, EOMI and PERRLA, lids normal Mouth: Unremarkable mucous membranes. Neck: Evidence of old thyroidectomy and neck dissection surgical scars. No palpable neck masses. Positive posterior neck tenderness to palpation. Limited range of motion due to discomfort. Nodes: No detectable cervical, supraclavicular, or axillary adenopathy Lungs: Breath sounds normal and symmetric; no rales or wheezes Heart: Regular, rate, and rhythm without murmurs Abdomen: Soft, nontender, nondistended Back: No costovertebral angle tenderness. Extremities: Decreased ability to raise the left arm. She does have intact but diminished product safety expert strength. Musculoskeletal: No tenderness elicited on palpation or percussion of ribs or thoracic/lumbar spine. Neurologic: Mental status normal; alert and oriented X 3 Laboraory Data: (08/14/2022) Free T4 < 0.4 TSH 208 Thyroglobulin antibody < 1.0 Pathology: (02/05/2022) Soft tissue, right central neck mass, excision (A): - Recurrent/residual papillary thyroid carcinoma (1.7 cm), infiltrating skeletal muscle - Margins free of malignancy (0.2 cm) ?? Soft tissue, additional tissue over thyroid cartilage, excision (B): - Benign skeletal muscle (08/19/2020) Lymph nodes, left level 2A, dissection (A): - No evidence of malignancy in 14 nodes (0/14) ?? Lymph nodes, left level 3, dissection (B): - Metastatic carcinoma in 1 of 14 nodes (1/14) ?? Lymph nodes, left level 4&5, dissection (C): - Metastatic carcinoma in 2 of 13 nodes (2/13) ?? Lymph nodes, right level 3, dissection (D): - Metastatic carcinoma in 2 of 5 nodes (2/5) ?? Lymph node, right level 2A, dissection (E): - Metastatic carcinoma in 2 of 22 nodes (2/22) - Positive for extranodal extension ?? Lymph node, right level 4/5, dissection (F): - Metastatic carcinoma in 1 of 12 nodes (1/12) - Positive for extranodal extension ?? Nerve, recurrent laryngeal, right, excision (G; including FSG): - 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 ?? Thyroid, left lobe, hemithyroidectomy (H): - Papillary thyroid carcinoma with follicular architecture, multifocal - Nodular hyperplasia ?? Neck, left central mass, excision (I; including FSI): - Normocellular parathyroid tissue ?? Nerve, revision right recurrent, excision (J; including FSJ): - Nerve and soft tissues with no evidence of malignancy ?? Neck, central mass, dissection (K): - Metastatic carcinoma in 2 of 3 nodes (2/3) ?? Soft tissue, query parathyroid, excision (L; including FSL): - Benign fibrovascular and neural tissues ?? Thyroid, right lobe with tracheal wall, thyroidectomy (M; including FSM1-2): - Papillary thyroid carcinoma with tall cell features and frequent follicular architecture, with extrathyroidal extension - Tumor approaches inked margins - Superior and inferior tracheal margins involved by tumor; tumor involves tracheal mucosa - Benign parathyroid tissue ?? Trachea, left tracheal wall, excision (N; including FSN1): - No evidence of malignancy ?? Trachea, right superior tracheal wall, excision (O; including FSO1): - Submucosal tissue involved by tumor ?? (08/01/2020) Thyroid, right lobe, fine needle aspiration (A): - Final diagnosis: Suspicious for a follicular neoplasm (TBSRTC Category IV), see comment. Radiographic Data: MRI of cervical spine (08/21/2022) 1.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 of [...] spinal cord compression. No demonstrated cord edema. SP ECT tumor localization CT scan (08/19/2022) Focal uptake in anteriorly in the left aspect of the mid cervical spine, suggestive of metastatic disease. Further evaluation with MRI cervical spine is recommended to better evaluate the site of the recurrence and the proximity to the spinal cord. I 131 nuclear medicine whole body thyroid scan (08/19/2022) Focal uptake in anteriorly in the left aspect of the mid cervical spine, suggestive of metastatic disease. Further evaluation with MRI cervical spine is recommended to better evaluate the site of the recurrence and the proximity to the spinal cord. MRI of left shoulder (03/29/2022) 1. Rotator cuff tear including a small [...] at the level of the bicipital groove. ?? CT scan of neck (01/28/2022) Postoperative changes consistent with previous thyroidectomy and neck dissection. Two enhancing nodules in the thyroid bed operative region suspicious for recurrence, as detailed above. Clinical correlation is recommended. Degenerative changes in the cervical spine with canal and foraminal narrowing, as described above. ?? Whole-body PET scan (12/25/2021) 1. Marked hypermetabolic activity at the thyroidectomy site, more prominent on the left, concerning for residual disease. Recommend correlation with thyroid sonogram. Assessment / Impression: 62-year-old with surgical stage: [id number] AJCC IVb papillary thyroid cancer Now with symptomatic cervical spine metastasis. Neurosurgical decompressions and stabilization pending. Plan: I reviewed the role of palliative external beam radiation treatment to her neck after healing and recovery from surgery. Brisa Hogan understands that this radiation treatment is designed to prevent further local tumor recurrence, progression, manage pain, and help prevent further local problems from the cancer. I described details regarding the logistics of the radiation planning and treatment process. I also addressed the anticipated acute symptoms associated with the proposed therapy andpossible mechanical planner side effects. I used diagrams to illustrate the etiology of these symptoms and answer her questions from the patient and her family. Informed consent to be obtained at time of future CT simulation. It was a pleasure evaluating Mr. Brisa Hogan. She plans to undergo surgery in the few weeks. We will anticipate seeing her again after adequate recovery. Once healed, a post-operative CT simulation time will be coordinated. I anticipate delivering a dose of 3000 cGy in 10 fractions directed toher cervical spine and neck. I do appreciate the opportunity to evaluate your patient and look forward to assisting with her ongoing cancer management. Majority of the consultation visit was spent discussing cancer diagnosis with patient, reviewing medical records and available radiographic images,exploring treatment options, addressing logistics, side effects, and potential complications of treatment, counseling, and coordination of multimodality cancer care. Gustavo Owens MD COMMUNICATIONS ANALYST * Lexii Choi RN - 09/02/2022 10:46 AM CST NCCN distress 8. Patient refuses to see soft tile setter today and does not want soft tile setter to call her either. Patient's sister, Rocio, with her. COMMUNICATIONS ANALYST documented in this encounter Plan of Treatment Upcoming Encounters Date Type Department Care Team (Late st Contact Info) Description 07/25/2024 10:00 AM DATA COMMUNICATIONS ANALYST Office Visit [facility] - Endocrinology [address] [place] [address], [facility] [place] [phone] Yosi Bustamante MD [address] [place] [address] 2L [place] [address] 07/26/2024 10:00 AM DATA COMMUNICATIONS ANALYST Appointment [facility] [address] [place] [phone] Neri Delgado MD [address] [place] [phone] 07/26/2024 10:00 AM DATA COMMUNICATIONS ANALYST Office Visit [facility] - ENT [address] [place] [phone] Myra Farmer, COMMUNICABLE DISEASE SPECIALIST [address] [place] [address] 2L [place] [phone] 07/26/2024 11:15 AM DATA COMMUNICATIONS ANALYST Office Visit [facility] - ENT [address] [place] [phone] Neri Delgado MD [address] [place] [phone] 08/02/2024 2:20 PM DATA COMMUNICATIONS ANALYST Appointment [facility] [address] [place] [phone] 08/02/2024 3:00 PM DATA COMMUNICATIONS ANALYST Office Visit [facility] - Hematology/Oncology [address] [place] [phone] Remi Beckett MD [address] [place] [phone] 08/18/2024 1:45 PM DATA COMMUNICATIONS ANALYST Office Visit [facility] - ENT [address] [place] [phone] Neri Delgado MD [address] [place] [phone] documented as of this encounter Visit Diagnoses Not on filedocumented in this encounter Care Teams Food Service Steward Relationship Specialty Start Date End Date Taniya Grimes MD [address] [place] [phone] PCP - General 07/15/22 10/06/22 Adriana Adams DO [address] [place] [phone] Resident - PCP Internal Medicine 04/06/22 01/12/23 documented as of this encounter
--- OUTSIDE RECORDS SUMMARY | 2024-07-23 07:12 | XMS_ITS | Encounter Summary ---
Author Organization [facility] Health Address [address] [place] [address] Care Team Providers Care Biomedical Photographer Name Role Phone Adriana Adams DO Unavailable Taniya Grimes MD Primary Care Provider Encounter Details Date Type Department Care Team (Latest Contact Info) Description 09/02/2022 Travel Social History Tobacco Use Types Packs/Day [...] Coronavirus/COVID-19? No / Unsure 09/02/2022 2:14 PM [employer] documented as of this encounter Functional Status [...] st Contact Info) Description 07/25/2024 10:00 AM [employer] Office Visit [facility] - Endocrinology [address] [place] [phone] Yosi Bustamante MD [address] [place] [address] 2L [place] [address] 07/26/2024 10:00 AM [employer] Appointment [facility] [address] [place] [phone] Neri Delgado MD [address] [place] [phone] 07/26/2024 10:00 AM [employer] Office Visit [facility] - ENT [address] [place] [phone] Myra Farmer, SCHOOL LEADER [address] [place] [address] 2L [place] [phone] 07/26/2024 11:15 AM [employer] Office Visit [facility] - ENT [address] [place] [phone] Neri Delgado MD [address] [place] [phone] 08/02/2024 2:20 PM [employer] Appointment [facility] [address] [place] [phone] 08/02/2024 3:00 PM [employer] Office Visit [facility] - Hematology/Oncology [address] [place] [phone] Remi Beckett MD [address] [place] [phone] 08/18/2024 1:45 PM [employer] Office Visit [facility] - ENT [address] [place] [phone] Neri Delgado MD [address] [place] [phone] documented as of this encounter Visit Diagnoses Not on filedocumented in this encounter Care Teams Biomedical Photographer Relationship Specialty Start Date End Date Taniya Grimes MD [address] [place] [address] DIV OF [facility] [place] [phone] PCP - General 07/15/22 10/06/22 Adriana Adams DO [address] [place] [address] Resident - PCP Internal Medicine 04/06/22 01/12/23 documented as of this encounter
--- OUTSIDE RECORDS SUMMARY | 2024-07-23 07:12 | XMS_ITS | Encounter Summary ---
Author Organization [facility] Address [address] [facility] [place] [address] Care Team Providers Care Trimmer Hand Name Role Phone Adriana Adams DO Unavailable Taniya Grimes MD Primary Care Provider Reason for Referral * Radiology Services (Routine) - Closed Specialty Diagnoses / Procedures Referred By Contac t Referred To Contact Diagnoses Neoplasm of uncertain behavior of skin Procedures CT RAD THERAPY WO CONTRAST Marcio Mcintosh MD [address] [place] [address] [phone] Referral ID Status Reason Start Date Expiration Date Visits Re quested Visits Authorized [id number] Closed 09/17/2022 03/16/2023 1 1 Encounter Details Date Type Department Care Team (Latest Contact Info) Description 09/15/2022 12:51 PM CDT - 09/15/2022 1:50 PM CDT Hospital Encounter [facility] [place] [address] Marcio Mcintosh MD [address] [place] [address] Discharge Disposition: Home or Self [...] Coronavirus/COVID-19? No / Unsure 09/02/2022 2:14 PM ANIMAL NURSE documented as of this encounter Last Filed Vital Signs Vital Sign Reading Time Taken Comments Blood Pressure 148/90 09/15/2022 1:07 PM CDT Pulse 85 09/15/2022 1:07 PM CDT Temperature 36.1 ??C (97 ??F) 09/15/2022 1:07 PM CDT Respiratory Rate 16 09/15/2022 1:07 PM CDT Oxygen Saturation 97% 09/15/2022 1:07 PM CDT Inhaled Oxygen Concentration - - Weight 70.3 kg (155 lb) 09/15/2022 1:07 PM CDT Height - - Body Mass Index 28.35 09/14/2022 2:21 PM CDT documented in this [...] daily 08/28/2022 celecoxib (CeleBREX) 200 MG capsuleIndications:Nicole tsahl osteoarthritis of left hip Take 1 (one) [...] A DAY 60 capsule 11 02/22/2022 05/28/2023 [id number]-[id number]-KVCW PO Take by mouth once daily 06/13/2023 [...] fluticasone propionate (FLONASE) 50 MCG/ACT nasal spray [place] 2 (two) sprays into each nostril once daily 48 g 10/20/2021 11/25/2022 gabapentin (Neurontin) 300 MG capsuleIndications:Nicole stahl osteoarthritis of left hip Take 1 (one) capsule by mouth 3 times daily 90 capsule 5 04/06/2022 11/19/2022 VWDSOR-ELNXTBZQC-BYQ-C -HYAL PO Take 1 tablet by mouth [...] Progress Notes * Marcio Mcintosh MD - 09/15/2022 1:50 PM CDT Images from the original note were not included. Return Patient Visit Department of Radiation Oncology [facility] ENCOUNTER DATE: 09/15/2022 PATIENT IDENTIFICATION Brisa Hogan 1960 [employer] Chief Complaint: No chief complaint on file. Diagnosis: 1. Neoplasm of uncertain behavior of skin 2. 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, stage TxNxM1, s/p Resection of primary thyroid andRAI of 157.6mCi Referring MD: Medical Staff Services Coordinator: Yosi Bustamante MD ENT Surgeon: Neri Delgado MD NeuroSurgeon: MD Taniya Cui MD PAST DISEASE HISTORY: Brisa was [...] additional dose of radioactive I 131 treatment. ?? Patient [...] stenosis/compression. ?? She was evaluated by Dr. Gómez who recommended surgical decompression and cervical spine stabilization scheduled for 10/02/2022. SUBJECTIVE/HPI: Ms. Brisa Hogan is a 62 year old female who returns for a follow up visit. Since our last visit, Brisa has returned with persistnet pain and limited use of her shoulder. Shefeels mostly in the Thumb and index finger as numbness. She has no incontinence of stool or urine and denies any new LE weakness. REVIEW OF SYSTEMS: GENERAL: Denies Headaches, nausea, vomiting PULMONARY: Denies cough or worsened shortness of breath NEUROLOGIC: Denies new neurologic deficit or weakness/loss of motion in arms or legs I have also reviewed the nursing assessment flowsheet below: Radiation Oncology Nursing Assessement 09/15/2022 Education: Education done: no Karnofsky ECOG Score: Karnofsky ECOG Score: [place] 80- Normal activity with effort, some sign of symptoms of disease/ECOG 1-Restricted in physically strenuous activity but ambulatory and able to carry out work of a light or sedentary nature Treatment Sites: System Assessment: Pain: Pain: Yes Nausea: Nausea: No Fatigue: Fatigue: Yes Sleep: Sleep: No Mobility: Mobility: Yes (walker) Bathing/Dressing: Bathing/Dressing: No Breathing: Breathing: No Mouth Sores: Mouth Sores: No Eating: Eating: No Indigestion: Indigestion: No Constipation: Constipation: No Diarrhea: Diarrhea: No Changes in Urination: Changes in urination: No Fevers: Fevers: No Skin Dry/Itchy: Skin dry/itchy: Yes Nasal: Nasal: No Hands/Feet: Tingling in hands/feet: Yes (left arm and left hand numbness) Memory/Concentration: Memory/concentation: No Swelling: Swelling: No Appearance: Appearance: No Sexual: Mucous Membrances: Mucous Membranes: Moist Eye: Eyes: 0-No address change clerk baseline Ears: Salivary Glands: Salivary Glands: 0-no address change clerk baseline Pharynx and Esophagus: Pharynx and Esophagus: 0-No address change clerk baseline Larynx: Larynx: 0-No change in baseline Upper GI: Upper GI: 0-no address change clerk baseline Lower GI including pelvis: Lower GI including pelvis: 0-No address change clerk baseline Lungs: Lungs: 0-No address change clerk baseline Other: PAST MEDICAL HISTORY Past Medical [...] TABLET BY MOUTH EVERYDAY AT BEDTIME ??? B Complex Vitamins (B COMPLEX 1 PO) Take by mouth once daily ??? buPROPion SR 12hr (Wellbutrin-SR) 100 MG tablet Take 1 (one) tablet by mouth 2 times daily ??? calcitriol (Rocaltrol) 0.5 MCG capsule TAKE 1 CAPSULE BY MOUTH TWICE A DAY ??? HCNBVTH-VCHKCOGKG-XLLK PO Take by mouth once daily ??? celecoxib (CELEBREX) 200 MG capsule Take 1 (one) capsule by mouth once daily ??? cetirizine (ZYRTEC) 10 MG tablet Take 1 (one) tablet by mouth once daily ??? clonazePAM (KLONOPIN) 0.5 MG tablet Take 1.5 (one and one-half) tablets by mouth once daily ??? cyclobenzaprine (Flexeril) 5 MG tablet Take 1 (one) tablet by mouth 3 times daily as needed (muscle spasms) ??? famotidine (PEPCID) 20 MG tablet Take 1 (one) tablet by mouth 2 times daily as needed ??? fish oil/omega-3 fatty acids (PROMEGA;CARDI-OMEGA 3) 1000 MG capsule Take 1 (one) capsule by mouth 3 times daily with meals ??? fluticasone propionate (FLONASE) 50 MCG/ACT nasal spray [place] 2 (two) sprays into each nostril once daily ??? gabapentin (Neurontin) 300 MG capsule Take 1 (one) capsule by mouth 3 times daily ??? YWWAGF-ROSZPFSMY-QEM-C-HYAL PO Take 1 tablet by mouth 3 times daily ??? levothyroxine (Synthroid) 112 MCG tablet TAKE 1 TABLET BY MOUTH EVERY DAY ??? lidocaine (Lidoderm) 5 % patch Apply 2 (two) patches to skin once daily Apply patch to most painful area and remove after 12 hours. May reapply a new patch 12 hours later. (Patient not taking: Reported on 09/15/2022) ??? naproxen (Naprosyn) 500 MG tablet Take 1 (one) tablet by mouth 2 times daily as needed (Patientnot taking: Reported on 09/14/2022) ??? nicotine (NICODERM CQ) 14 MG/24HR patch Apply 1 (one) patch to skin once daily (Patient not taking: Reported on 09/02/2022) ??? oxybutynin CR 24hr (Ditropan-XL) 5 MG [...] times daily (Patient not taking: Reported on 09/15/2022) No current facility-administered medications for this encounter. OBJECTIVE: Vitals: 09/15/22 1307 BP: 148/90 Pulse: 85 Resp: 16 Temp: 97 ??F SpO2: 97% Weight: 70.3 kg (155 lb) PainSc: Zero Wt Readings from Last 3 Encounters: 09/15/22 70.3 kg (155 lb) 09/14/22 71 kg (156 lb 9.6 oz) 09/02/22 70.5 kg (155 lb 6.4 oz) KPS is 80 General Appearance: in no apparent distress, well developed and well nourished, alert, anicteric and cooperative HEENT: Normocephalic, atraumatic Lymph: No adenopathy of the cervical or supraclavicular fossa visible Extremities:extremities normal, atraumatic, no cyanosis or edema, Limited LUE use with shoulder weakness Neurological exam reveals alert, oriented, normal speech, no focal findings or movement disorder noted, abnormal findings: with limited use of the left shoulder and strength of the left hand/arm. RADIOGRAPHIC IMAGES: MRI CERVICAL SPINE WWO CONT Result Date: 08/24/2022 IMPRESSION: 1.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 [...] spinal cord compression. No demonstrated cord edema. > Interpreting Provider: Mela Snell MD on 08/24/2022 8:18 PM NM THYROID WHOLE BODY SCAN Result Date: 08/19/2022 Impression: Focal uptake in anteriorly in the left aspect of the mid cervical spine, suggestive of metastatic disease. Further evaluation with MRI cervical spine is recommended to better evaluate thesite of the recurrence and the proximity to the spinal cord. Results discussed with Dr. Bustamante by Dr. Sy on 08/19/2022 at 3:35 PM. > Dictated by Donald Mayer MD (Card Grader) 08/19/2022 4:15 PM Tiesha Mckeon DO have personally reviewed and interpreted this examination/study.> Interpreting Provider: Tiesha Sy DO on 08/19/2022 4:38 PM NM TUMOR LOCAL SPECT CT Result Date: 08/19/2022 Impression: Focal uptake in anteriorly in the left aspect of the mid cervical spine, suggestive of metastatic disease. Further evaluation with MRI cervical spine is recommended to better evaluate thesite of the recurrence and the proximity to the spinal cord. Results discussed with Dr. Bustamante by Dr. Sy on 08/19/2022 at 3:35 PM. > Dictated by Donald Mayer MD (Card Grader) 08/19/2022 4:15 PM Tiesha Mckeon DO have personally reviewed and interpreted this examination/study.> Interpreting Provider: Tiesha Sy DO on 08/19/2022 4:38 PM LABORATORY: WBC Date Value Ref Range Status 09/14/2022 6.7 3.5 - 10.5 10??3/uL Final Hemoglobin Date Value Ref Range Status 09/14/2022 13.1 12.0 - 15.6 g/dL Final Hematocrit Date Value Ref Range Status 09/14/2022 39.2 35.0 - 45.0 % Final INR Date Value Ref Range Status 09/14/2022 1.0 See Comment Final Comment: The suggested therapeutic range for standard coumadin (warfarin) therapy is an INR of 2.0-3.0. For high-risk patients (Mechanical Mitral Valve Prosthesis, etc.), the suggested prophylactic therapeutic range is an INR of 2.5-3.5. Sodium Date Value Ref Range Status 09/14/2022 140 136 - 145 mmol/L Final Chloride Date Value Ref Range Status 09/14/2022 103 98 - 107 mmol/L Final BUN Date Value Ref Range Status 09/14/2022 12 7 - 26 mg/dL Final Creatinine Date Value Ref Range Status 09/14/2022 0.93 0.56 - 0.96 mg/dL Final TSH Date Value Ref Range Status 08/14/2022 208.891 (H) 0.350 - 4.940 uIU/mL Final Comment: Result obtained by dilution. 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 She was offered SBRT to the the spinal canal/vertebral lesion with 2400cGy in 2 fractions due to adjacent area to cord and the attempt to preserve the nerves within the tumor. Her targeting is improved prior to surgery and will still receive an optimal BED for local control. I have reviewed with her the risks, benefits, side effects and alternatives to irradiation via SBRT. She has accepted therapy. A copy of the consent was provided. . We would like to see Brisa in 1 weeks for a follow up visit. We have ordered her simulation and therapy. Minimum duration of time spent in chart (preparing with review of radiographic and laboratory tests, discussion of planned care with staff and physicians, discussion with patient for counseling and educating, as well as ordering future tests, radiographic studies, or procedures) : I spent a total of 29 minutes on the day of the visit. Portions of this note reflect historical treatments, history of disease, ongoing symptomatology, and exam findings that remain unchanged from the past note ( 09/02/2022 , and may be located in Media [...] andyour physicians for clarification. Marcio Mcintosh MD 09/16/2022 11:06 AM documented in this encounter Plan of Treatment Upcoming Encounters Date Type Department Care Team (Late st Contact Info) Description 07/25/2024 10:00 AM ANIMAL NURSE Office Visit [facility] - Endocrinology [address] [place] [phone] Yosi Bustamante MD [address] [place] [address] 2L [place] [address] 07/26/2024 10:00 AM ANIMAL NURSE Appointment [facility] [address] [place] [phone] Neri Delgado MD [address] [place] [address] 07/26/2024 10:00 AM ANIMAL NURSE Office Visit [facility] - ENT [address] [place] [phone] Myra Farmer, TOOL DESIGN DRAFTSPERSON [address] [place] [address] 2L [place] [phone] 07/26/2024 11:15 AM ANIMAL NURSE Office Visit [facility] - ENT [address] [place] [phone] Neri Delgado MD [address] [place] [phone] 08/02/2024 2:20 PM ANIMAL NURSE Appointment [facility] [address] [place] [phone] 08/02/2024 3:00 PM ANIMAL NURSE Office Visit [facility] - Hematology/Oncology [address] [place] [phone] Remi Beckett MD [address] [place] [phone] 08/18/2024 1:45 PM ANIMAL NURSE Office Visit [facility] - ENT [address] [place] [phone] Neri Delgdao MD [address] [place] [phone] Pending Results Name Type Priority Associated Diagnoses Date /Time CT RAD THERAPY WO CONTRAST Imaging Routine Neoplasm of uncertain behavior of skin 09/15/2022 2:21 PM CDT Scheduled Orders Name Type Priority Associated Diagnoses Orde r Schedule CT RAD THERAPY WO CONTRAST Imaging Routine Neoplasm of uncertain behavior of skin 1 Occurrences starting 09/15/2022 until 09/16/2023 documented as of this encounter Visit Diagnoses Diagnosis Neoplasm of uncertain behavior of skin- Primary Thyroid cancer (HCC) Malignant neoplasm of thyroid gland documented in this encounter Care Teams Trimmer Hand Relationship Specialty Start Date End Date Taniya Grimes MD [address] [place] [address] DIV OF [facility] [place] [phone] PCP - General 07/15/22 10/06/22 Adriana Adams DO [address] [place] [phone] Resident - PCP Internal Medicine 04/06/22 01/12/23 documented as of this encounter
--- OUTSIDE RECORDS SUMMARY | 2024-07-23 07:12 | XMS_ITS | Encounter Summary ---
Author Organization [facility] Address [address] [facility] [place] [address] Care Team Providers Care Bar Staff Name Role Phone Adriana Adams DO Unavailable Taniya Grimes MD Primary Care Provider Reason for Visit * Radiology Services (Routine) - Closed Specialty Diagnoses / Procedures Referred By Contac t Referred To Contact Diagnoses Neoplasm of uncertain behavior of skin Procedures CT RAD THERAPY WO CONTRAST Marcio Mcintosh MD [address] [place] [address] [facility] [address] [place] [phone] Referral ID Status Reason Start Date Expiration Date Visits Re quested Visits Authorized [id number] Closed 09/17/2022 03/16/2023 1 1 Encounter Details Date Type Department Care Team (Latest Contact Info) Description 09/15/2022 1:51 PM CDT - 09/15/2022 11:59 PM CDT Hospital Encounter [facility] [address] [place], [place] [phone] Marcio Mcintosh MD [address] [place] [address] Discharge Disposition: Home or Self [...] Coronavirus/COVID-19? No / Unsure 09/02/2022 2:14 PM SANDER WOODEN PENCILS documented as of this encounter Functional Status [...] A DAY 60 capsule 11 02/22/2022 05/28/2023 [id number]-GGHQSLYUP-FHMA PO Take by mouth once daily 06/13/2023 [...] fluticasone propionate (FLONASE) 50 MCG/ACT nasal spray [place] 2 (two) sprays into each nostril once daily 48 g 10/20/2021 11/25/2022 gabapentin (Neurontin) 300 MG capsuleIndications:Nicole stahl osteoarthritis of left hip Take 1 (one) capsule by mouth 3 times daily 90 capsule 5 04/06/2022 11/19/2022 PRDVDR-EIFOHZTAS-ZAK-C -HYAL PO Take 1 tablet by mouth [...] st Contact Info) Description 07/25/2024 10:00 AM SANDER [employer] Office Visit [facility] - Endocrinology [address] [facility] [place] [phone] Yosi Bustamante MD [address] [place] [address] [place] [address] 07/26/2024 10:00 AM SANDER [employer]ENCILS Appointment [facility] [address] [place] [phone] Neri Delgado MD [address] [place] [phone] 07/26/2024 10:00 AM S[employer] Office Visit [facility] - ENT [address] [place] [phone] Myra Farmer, PAYROLL LEAD [address] [place] [address] [place] [phone] 07/26/2024 11:15 AM SANDER [employer] Office Visit [facility] - ENT [address] [place] [phone] Neri Delgado MD [address] [place] [phone] 08/02/2024 2:20 PM SANDER [employer]ENCILS Appointment [facility] [address] [place] [phone] 08/02/2024 3:00 PM SANDER [employer] Office Visit [facility] - Hematology/Oncology [address] [place] [phone] Remi Beckett MD [address] [place] [phone] 08/18/2024 1:45 PM SANDER [employer] Office Visit [facility] - ENT [address] [place] [phone] Neri Delgado MD [address] [place] [phone] Pending Results Name Type Priority Associated Diagnoses Date /Time CT RAD THERAPY WO CONTRAST Imaging Routine Neoplasm of uncertain behavior of skin 09/15/2022 2:21 PM CDT documented as of this encounter Visit Diagnoses Diagnosis Neoplasm of uncertain behavior of skin documented in this encounter Care Teams Bar Staff Relationship Specialty Start Date End Date Taniya Grimes MD [address] [place] [phone] PCP - General 07/15/22 10/06/22 Adriana Adams DO [address] [place] [phone] Resident - PCP Internal Medicine 04/06/22 01/12/23 documented as of this encounter
--- OUTSIDE RECORDS SUMMARY | 2024-07-23 07:12 | XMS_ITS | Encounter Summary ---
Author Organization [facility] Address [address] [facility] [place] [address] Care Team Providers Care Mail Service Coordinator Name Role Phone Adriana Adams DO Unavailable Taniya Grimes MD Primary Care Provider Reason for Visit * Radiology Services (Urgent) - Closed Specialty Diagnoses / Procedures Referred By Yuan t Referred To Contact MRI Diagnoses Thyroid cancer (HCC) Postoperative hypothyroidism Procedures MRI CERVICAL SPINE WWO CONT Yosi Bustamante MD [address] [place] [address] 2[place] [address] [facility] [address] [place] [address] Referral ID Status Reason Start Date Expiration Date Visits Re quested Visits Authorized [id number] Closed 08/19/2022 08/19/2023 1 1 Encounter Details Date Type Department Care Team (Latest Contact Info) Description 08/21/2022 3:10 PM DYE WORKER - 08/21/2022 11:59 PM [facility] Hospital Encounter [facility] MRI [address] [place] [phone] Yosi Bustamante MD [address] [place] [address] 2L Div [place], [place] [id number] Discharge Disposition: Home or Self Care Social [...] Sig Dispensed Refills Start Date End Date famotidine (PEPCID) 20 MG tablet Take 1 [...] PO) Take by mouth once daily 12/24/2022 BUPROPION HCL ER, SR, PO Take 100 mg by mouth once daily 09/02/2022 calcitriol (Rocaltrol) 0.5 MCG capsuleIndications:Posto perative hypothyroidism,Thyroid cancer (HCC),Hypocalcemia TAKE 1 CAPSULE BY MOUTH TWICE A DAY 60 capsule 11 02/22/2022 05/28/2023 [id number] PO Take by mouth once daily 06/13/2023 cefdinir (Omnicef) 300 MG capsule Take 1 (one) capsule by mouth every 12 hours 07/12/2022 09/14/2022 celecoxib (CELEBREX) 200 MG capsuleIndications:Prima ry osteoarthritis of left hip Take 1 (one) capsule by mouth once daily 90 capsule 3 01/19/2022 10/06/2022 cetirizine (ZYRTEC) 10 MG tabletIndications:Allerg ic rhinitis, [...] fluticasone propionate (FLONASE) 50 MCG/ACT nasal spray [place] 2 (two) sprays into each nostril once daily 48 g 10/20/2021 11/25/2022 gabapentin (Neurontin) 300 MG capsuleIndications:Prima ry osteoarthritis of left hip Take 1 (one) capsule by mouth 3 times daily 90 capsule 5 04/06/2022 11/19/2022 [id number]-C-H YAL PO Take 1 tablet by mouth [...] six day supply. 21 tablet 04/10/2022 09/14/2022 Misc Natural Products (NEURIVA PO) Take 2 capsules by mouth every morning 09/14/2022 naproxen (Naprosyn) 500 MG tablet Take 1 (one) tablet by mouth 2 times daily as needed 07/17/2022 10/06/2022 nicotine (NICODERM CQ) 14 MG/24HR patchIndications:Tobacco use disorder Apply 1 (one) patch to skin once daily 30 patch 6 10/29/2021 10/21/2022 pantoprazole EC (Protonix) 40 MG tabletIndications:Gastro esophageal reflux disease, unspecified whether esophagitis present TAKE ONE TABLET BY MOUTH ONCE DAILY FOR STOMACH 90 tablet 05/14/2022 01/13/2023 thyrotropin tayo (THYROGEN) injectionIndications:Mal ignant Neoplasm of Thyroid Inject 0.9 mg into muscle every 24 hours for 2 doses Reasons: Cancer of Thyroid 2 mL 02/06/2021 09/14/2022 vitamin E (TOCOPHERYL) 200 UNIT capsule Take 1 (one) capsule by mouth 3 times daily 06/13/2023 documented as of this encounter Plan of Treatment Upcoming Encounters Date Type Department Care Team (Late st Contact Info) Description 07/25/2024 10:00 AM DYE WORKER Office Visit [facility] - Endocrinology [address] [place] [phone] Yosi Bustamante MD [address] [place] [address] 2L [place] [address] 07/26/2024 10:00 AM DYE WORKER Appointment [facility] DIAGNOSTIC RAD [address] [place] [phone] Neri Delgado MD [address] [place] [address] 07/26/2024 10:00 AM DYE WORKER Office Visit [facility] - ENT [address] [place] [phone] Myra Farmer, CONTROL ROOM TENDER [address] [place] [address] 2L [place] [address] 07/26/2024 11:15 AM DYE WORKER Office Visit [facility] - ENT [address] [place] [phone] Neri Delgado MD [address] [place] [address] 08/02/2024 2:20 PM DYE WORKER Appointment [facility] [address] [place] [address] 08/02/2024 3:00 PM DYE WORKER Office Visit [facility] - Hematology/Oncology [address] [place] [phone] Remi Beckett MD [address] [place] [phone] 08/18/2024 1:45 PM DYE WORKER Office Visit [facility] - ENT [address] [place] [phone] Neri Delgado MD [address] [place] [address] documented as of this encounter Procedures Procedure Name Priority Date/Time Associated Diagnosis Comments MRI CERVICAL SPINE WWO CONT MARAL 08/21/2022 3:59 PM DYE WORKER Thyroid cancer (HCC) Postoperative hypothyroidism documented in this encounter Results * MRI CERVICAL SPINE WWO CONT (08/21/2022 3:59 PM DYE WORKER) Anatomical Region Laterality Modality Spine Magnetic Resonan ce 08/24/2022 2:49 PM DYE WORKER Impressions 08/24/2022 8:18 PM DYE WORKER IMPRESSION: 1.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 [...] Mela Snell MD on 08/24/2022 8:18 PM Narrative 08/24/2022 8:18 PM DYE WORKER PROCEDURE: ??MRI CERVICAL SPINE WWO CONT, DATE/TIME OF EXAM: ??08/21/2022 3:59 PM, LOCATION ??[facility] INDICATION: C73: Thyroid cancer (CMS/HCC) E89.0: Postoperative hypothyroidism ADDITIONAL CLINICAL INFORMATION: Ordering Provider Reason For Exam: ??C SPINE LESION ON NUC MED STUDY FOR [...] unremarkable. There is no spinal cord enhancement. Procedure Note Mela Snell MD - 08/24/2022 PROCEDURE: MRI CERVICAL SPINE WWO CONT, DATE/TIME OF EXAM: :59 PM, LOCATION [facility] INDICATION: C73: Thyroid cancer (CMS/HCC) E89.0: Postoperative hypothyroidism ADDITIONAL CLINICAL INFORMATION: Ordering Provider Reason For Exam: C SPINE LESION ON NUC MED STUDY FOR THYROID CANCER Focal uptake in anteriorly in the left aspect of the mid cervical spine COMPARISON: Thyroid whole body scan from 08/19/2022, CT neck soft tissues from 01/28/2022, PET/CT from 12/24/2021 and MRI cervical spine from 08/17/2020were reviewed. EXAMINATION: MRI of the cervical spine without and with intravenous contrast TECHNIQUE: MRI of the the cervical spine was performed without and with intravenous contrast according to standard protocol. CONTRAST: Gadobutrol 1 mmol/ml iv ssm so: 7 ml FINDINGS: There is enhancing bone marrow signal abnormality in the left aspect ofthe C5 and C6 vertebral bodies (hyperintense FLAIR weighted and hypointenseT1 weighted signal), compatible with metastasis. There is associatedapparent cortical erosion and involvement of the left posterior arches. Largevolume enhancing soft tissue is seen filling and widening the left C4-5, C5-6and C6-7 neural foramina. Ventral and left lateral epidural tumor is seen atC5 and C6 vertebral levels resulting in moderate spinal canal stenosis and cord impingement. There is anterior lateral extension with likely encasement of the left vertebral artery (for example series 5 image 23). Diffuse edema and enhancement is seen in the left scalene muscles. These findings are new since MRI from 08/17/2020. There is no correspondinglytic or sclerotic lesion on the CT from [...] C6-7. Possible encasement/abutment of the left vertebral arteryby the tumor at these levels. 3.Moderate spinal canal stenosis at C5 and C6 levels with spinal cord compression. No demonstrated cord edema. > Interpreting Provider: Mela Snell MD on 08/24/2022 8:18 PM Yosi Bustamante MD MR ORDERABLES documented in this encounter Visit Diagnoses Diagnosis Thyroid cancer (HCC) Malignant neoplasm of thyroid gland Postoperative hypothyroidism Postsurgical hypothyroidism documented in this encounter Administered Medications Inactive Administered Medications - up to 3 most recent administrations Medication Order MAR Action Action Date Dose Rate Site gadobutrol (Gadavist) injection Intravenous, CONTRAST ONCE, Starting on 08/21/22 at 1548, Until 08/22/22 at 0131 $ Given - Contrast 08/21/2022 3:49 PM DYE WORKER 7 mL documented in this encounter Care Teams Mail Service Coordinator Relationship Specialty Start Date End Date Taniya Grimes MD [address] [facility] [address] [facility] [place] [phone] PCP - General 07/15/22 10/06/22 Adriana Adams DO [address] [place] [phone] Resident - PCP Internal Medicine 04/06/22 01/12/23 documented as of this encounter
--- OUTSIDE RECORDS SUMMARY | 2024-07-23 07:12 | XMS_ITS | Encounter Summary ---
Author Organization [facility] Health Address [address] [place] [address] Care Team Providers Care Copra Processor Name Role Phone Adriana Adams DO Unavailable Taniya Grimes MD Primary Care Provider Reason for Visit * Reason Onset Date Comments MEDICATION REFILL 09/07/2022 Encounter Details Date Type Department Care Team (Late st Contact Info) Description 09/07/2022 Refill [facility] Internal Medicine [address] [place] [phone] Adriana Adams DO [address] [place] [phone] MEDICATION REFILL Social History Tobacco Use Types [...] Coronavirus/COVID-19? No / Unsure 09/02/2022 2:14 PM DEVELOPMENT MECHANIC documented as of this encounter Functional [...] encounter Miscellaneous Notes * Telephone Encounter - Aicha Hendrickson RN - 09/07/2022 10:08 AM CST Refill Request Brisa Hogan ELE: 08/12/22 NOV scheduled: 11/25/2022 LRF: 08/03/22 Qty Disp: 60 # of refills: 0 Allergies: Allergies Allergen Reactions ??? Kiwi Extract Anaphylaxis ??? Shellfish Allergy Other Passed out after eating lobster but can eat shrimp and crab Pended Medication Order: Requested Prescriptions Pending Prescriptions Disp Refills ??? lidocaine (Lidoderm) 5 % patch 60 patch 0 Sig: Apply 2 (two) patches to skin once daily Apply patch to most painful area and remove after 12 hours. May reapply a new patch 12 hours later. LOPMENT MECHANIC documented in this encounter Plan of Treatment Upcoming Encounters Date Type Department Care Team (Late st Contact Info) Description 07/25/2024 10:00 AM DEVELOPMENT MECHANIC Office Visit [facility] - Endocrinology [address] [place] [phone] Yosi Bustamante MD [address] [place] [address] [place] [address] 07/26/2024 10:00 AM DEVELOPMENT MECHANIC Appointment [facility] DIAGNOSTIC RAD [address] [place] [phone] Neri Delgado MD [address] [place] [address] 07/26/2024 10:00 AM DEVELOPMENT MECHANIC Office Visit [facility] - ENT [address] [place] [phone] Myra Farmer, COMPUTER OPERATOR [address] [place] [address] 2L [place] [phone] 07/26/2024 11:15 AM DEVELOPMENT MECHANIC [facility] [address] [place] [phone] Neri Delgado MD [address] [place] [address] 08/02/2024 2:20 PM DEVELOPMENT MECHANIC Appointment [facility] [address] [place] [address] 08/02/2024 3:00 PM DEVELOPMENT MECHANIC Office Visit [facility] - Hematology/Oncology [address] [place] [phone] Remi Beckett MD [address] [place] [phone] 08/18/2024 1:45 PM DEVELOPMENT MECHANIC [facility] [address] [place] [phone] Neri Delgado MD [address] [place] [phone] documented as of this encounter Visit Diagnoses Not on filedocumented in this encounter Care Teams Copra Processor Relationship Specialty Start Date End Date Taniya Grimes MD [address] [place] [address] 2L DIV OF [place] [phone] PCP - General 07/15/22 10/06/[address] [facility] [place] [phone] Resident - PCP Internal Medicine 04/06/22 01/12/23 documented as of this encounter
--- OUTSIDE RECORDS SUMMARY | 2024-07-23 07:12 | XMS_ITS | Encounter Summary ---
Author Organization [facility] Health Address [address] [place] [address] Care Team Providers Care Electrical Engineering Designer Name Role Phone Adriana Adams DO Unavailable Taniya Grimes MD Primary Care Provider [phone] Encounter Details Date Type Department Care Team (Latest Contact Info) Description 08/21/2022 2:44 PM COLLEGE COACH - 08/21/2022 3:09 PM [facility] Hospital Encounter [facility] OP DRAW STATION [address] [place] [phone] Discharge Disposition: Home or Self Care Social [...] A DAY 60 capsule 11 02/22/2022 05/28/2023 [id number] PO Take by mouth once daily 06/13/2023 [...] fluticasone propionate (FLONASE) 50 MCG/ACT nasal spray [place] 2 (two) sprays into each nostril once daily 48 g 10/20/2021 11/25/2022 gabapentin (Neurontin) 300 MG capsuleIndications:Prima ry osteoarthritis of left hip Take 1 (one) capsule by mouth 3 times daily 90 capsule 5 04/06/2022 11/19/2022 [id number]-C-H YAL PO Take 1 tablet by mouth [...] st Contact Info) Description 07/25/2024 10:00 AM COLLEGE COACH Office Visit [facility] - Endocrinology [address] [place] [phone] Yosi Bustamante MD [address] [place] [address] 2L [place] [address] 07/26/2024 10:00 AM COLLEGE COACH Appointment [facility] DIAGNOSTIC RAD [address] [place] [phone] Neri Delgado MD [address] [place] [address] 07/26/2024 10:00 AM COLLEGE COACH Office Visit [facility] - ENT [address] [place] [phone] Myra Farmer, PERSONAL INSURANCE ADVISOR [address] [place] [address] 2L [place] [phone] 07/26/2024 11:15 AM COLLEGE COACH Office Visit [facility] - ENT [address] [place] [phone] Neri Delgado MD [address] [place] [address] 08/02/2024 2:20 PM COLLEGE COACH Appointment [facility] [address] [place] [address] 08/02/2024 3:00 PM COLLEGE COACH Office Visit [facility] - Hematology/Oncology [address] [place] [phone] Remi Beckett MD [address] [place] [phone] 08/18/2024 1:45 PM COLLEGE COACH Office Visit [facility] - ENT [address] [place] [phone] Neri Delgado MD [address] [place] [address] documented as of this encounter Procedures Procedure Name Priority Date/Time Associated Diagnosis Comments THYROGLOBULIN REFLEX PROFILE Routine 08/21/2022 2:58 PM COLLEGE COACH Postoperative hypothyroidism Thyroid cancer (HCC) THYROGLOBULIN BY ANTONIETA RFLXED Routine 08/21/2022 2:58 PM COLLEGE COACH Postoperative hypothyroidism Thyroid cancer (HCC) documented in this encounter Results * THYROGLOBULIN BY ANTONIETA RFLXED (08/21/2022 2:58 PM COLLEGE COACH) Thyroglobulin by ANTONIETA TNP ng/mL 08/26/2022 5:08 PM COLLEGE COACH [facility] ([facility]) Comment: Test not performed. Insufficient specimen to perform or complete analysis. Contacted: Liliane Graham 08-26-22 According to the National Academy of Clinical Biochemistry, the reference interval for Thyroglobulin (TG) should be related to euthyroid patients and not for patients who underwent thyroidectomy. TG reference intervals for these patients depend on the residual mass of the thyroid tissue left after surgery. Establishing a post-operative baseline is recommended. The assay limit of quantitation is 0.1 ng/mL Thyroglobulin measured by Lisbet [facility] Immunometric Assay Blood BLOOD SPECIMEN / Unknown Lab Venipuncture / Unknown 08/21/2022 2:58 PM COLLEGE COACH 08/21/2022 3:38 PM COLLEGE COACH Narrative [facility] ([facility]) - 08/26/2022 5:08 PM COLLEGE COACH Performed at: ??01 - [facility] [address], [place], [place] ??[id number] Actuary Clerk: Oral Melendez PhD, Phone: ??[phone] Yosi Bustamante MD LAB - CHEMISTRY ORD ERABLES [facility]) [address] [place] [address], [facility] * THYROGLOBULIN REFLEX PROFILE (08/21/2022 2:58 PM COLLEGE COACH) Thyroglobulin Antibody <1.0 0.0 - 0.9 IU/mL 08/26/2022 5:08 PM COLLEGE COACH [facility] ([facility]) Comment:Thyroglobulin Antibo dy measured by Lisbet Seneca Methodology Blood BLOOD SPECIMEN / Unknown Lab Venipuncture / Unknown 08/21/2022 2:58 PM COLLEGE COACH 08/21/2022 3:38 PM COLLEGE COACH Narrative [facility] ([facility]) - 08/26/2022 5:08 PM COLLEGE COACH Performed at: ??01 - [facility] [address] [place], [place] ??[id number] Actuary Clerk: Oral Melendez PhD, Phone: ??[phone] Yosi Bustamante MD LAB - CHEMISTRY ORD ERABLES [facility] ([facility]) [address] [place] [address], [facility] documented in this encounter Visit Diagnoses Diagnosis Postoperative hypothyroidism Postsurgical hypothyroidism Thyroid cancer (HCC) Malignant neoplasm of thyroid gland documented in this encounter Care Teams Electrical Engineering Designer Relationship Specialty Start Date End Date Taniya Grimes MD [address] [place] [phone] PCP - General 07/15/22 10/06/22 Adriana Adams DO [address] [place] [address] Resident - PCP Internal Medicine 04/06/22 01/12/23 documented as of this encounter
--- OUTSIDE RECORDS SUMMARY | 2024-07-23 07:12 | XMS_ITS | Encounter Summary ---
Author Organization [facility] Health Address [address] [facility] [place] [address] Care Team Providers Care Alarm Signal Operator Name Role Phone Adriana Adams DO Unavailable Taniya Grimes MD Primary Care Provider Reason for Visit * Reason Onset Date Comments General 09/29/2022 Encounter Details Date Type Department Care Team (Late st Contact Info) Description 09/29/[address] [address] Haleigh Hurt, RN General Social History Tobacco Use Types Packs/Day [...] Coronavirus/COVID-19? No / Unsure 09/02/2022 2:14 PM CAMERA MECHANIC documented as of this encounter Functional [...] Telephone Encounter - Haleigh Hurt RN - 09/29/2022 10:29 AM CDT Patient called with increasing sore throat since radiation was completed. She stated that today is really bad. Dr. [place] aware and ordered Radiation Cocktail for patient. Since the patient's pharmacy does not make compounds, the script was called in to [facility] pharmacy. Patient will come over and pick it up. Patient verbalized understanding. documented in this encounter Plan of Treatment Upcoming Encounters Date Type Department Care Team (Late st Contact Info) Description 07/25/2024 10:00 AM CAMERA MECHANIC Office Visit [facility] - Endocrinology [address] [place] [phone] Yosi Bustamante MD [address] [place] [address] 2L [place] [address] 07/26/2024 10:00 AM CAMERA MECHANIC Appointment [facility] DIAGNOSTIC RAD [address] [place] [phone] Neri Delgado MD [address] [place] [address] 07/26/2024 10:00 AM CAMERA MECHANIC Office Visit [facility] - ENT [address] [place] [phone] Myra Farmer, ZAIN [address] [place] [address] 2L [place] [address] 07/26/2024 11:15 AM CAMERA MECHANIC Office Visit [facility]NT [address] [place] [phone] Neri Delgado MD [address] [place] [address] 08/02/2024 2:20 PM CAMERA MECHANIC Appointment [facility] [address] [place] [address] 08/02/2024 3:00 PM CAMERA MECHANIC Office Visit [facility] - Hematology/Oncology [address] [place] [phone] Remi Beckett MD [address] [place] [phone] 08/18/2024 1:45 PM CAMERA MECHANIC Office Visit [facility] - ENT [address] [place] [phone] Neri Delgado MD [address] [place] [address] documented as of this encounter Visit Diagnoses Not on filedocumented in this encounter Care Teams Alarm Signal Operator Relationship Specialty Start Date End Date Taniya Grimes MD [address] [place] [address] 2L [place] [phone] PCP - General 07/15/22 10/06/22 Adriana Adams DO [address] [place] [phone] Resident - PCP Internal Medicine 04/06/22 01/12/23 documented as of this encounter
--- OUTSIDE RECORDS SUMMARY | 2024-07-23 07:13 | XMS_ITS | Encounter Summary ---
Author Organization [facility] Health Address [address] [facility] [place] [address] Care Team Providers Care Manager Call Name Role Phone Adriana Adams DO Unavailable Taniya Grimes MD Primary Care Provider Reason for Visit * Reason Comments UTI Follow-up Encounter Details Date Type Department Care Team (Late st Contact Info) Description 08/12/2022 3:00 PM DIRECTOR OF SCOUT WORK Office Visit [facility] General Internal Medicine [address] [place] [phone] Adriana Adams DO [address] [place] [phone] Preventative health care (Primary Dx); Thyroid cancer (HCC) Social History Tobacco Use [...] Sign Reading Time Taken Comments Blood Pressure 128/85 08/12/2022 2:53 PM DIRECTOR OF SCOUT WORK Pulse 82 08/12/2022 2:53 PM DIRECTOR OF SCOUT WORK Temperature 36.3 ??C (97.3 ??F) 08/12/2022 2:53 PM CS T Respiratory Rate - - Oxygen Saturation 98% 08/12/2022 2:53 PM DIRECTOR OF SCOUT WORK Inhaled Oxygen Concentration - - Weight 70.3 kg (155 lb) 08/12/2022 2:53 PM DIRECTOR OF SCOUT WORK Height 157.5 cm (5' 2) 08/12/2022 2:53 PM DIRECTOR OF SCOUT WORK Body Mass Index 28.35 08/12/2022 2:53 PM DIRECTOR OF SCOUT WORK documented in this encounter Functional Status Functional [...] * Patient Instructions* Adriana Adams DO - 08/12/2022 3:50 PM DIRECTOR OF SCOUT WORK Ms. Hogan, You were seen in the [facility] for follow-up. Below is a summary of your visit. 1) You received the pneumonia vaccine while you were here. 2) you will need to get bloodwork downstairs 3) We highly recommend you getting the shingles vaccine 4) Please remember to get your colonoscopy and mammogram scheduled when possible. CTOR OF SCOUT WORK documented in this encounter Progress Notes * Adriana Adams DO - 08/12/2022 3:00 PM CST [facility] General Internal Medicine New Patient Note CC: Chief Complaint Patient presents with ??? UTI Follow-up History of Present Illness: Brisa Hogan [...] urine) - Needs dental clearance as well Interval History: 08/12/22: - 07/06/22-07/12/22 admitted to [facility] for UTI, oxybutynin rx'd last visit, and [...] pox previously. Encouraged patient to get both. Past Medical History: Reviewed and updated in [employer] History tab Past Surgical History: Reviewed and updated in Epic History tab Family History: Reviewed and updated in Epic History tab Social History: Reviewed and updated in Epic History tab Medications: Reviewed and updated in Epic Medications tab Allergies: Reviewed and updated in Epic Allergies tab Review of Systems: Bold if positive; otherwise negative Gen: fevers, chills, unintentional weight change Eyes: change in vision, loss of vision Ears: change in hearing, ear pain Throat: dysphagia, sore throat Nose: rhinorrhea, sinus pain CV: chest pain, palpitations, edema Pulm: SOB, CESPEDES, cough GI: abd pain, nausea, vomiting, diarrhea, constipation, melena, BRBPR : dysuria, hematuria, urinary frequency, urinary urgency, urinary incontinence MS: generalized arthralgias, generalized myalgias, back pain Neuro: focal weakness, numbness/tingling, LOC, lightheadedness, vertigo Skin: rash Heme: easy bruising Endocrine: heat intolerance;cold intolerance Physical Exam: BP 128/85 Pulse 82 Temp 97.3 ??F (36.3 ??C) (Skin) Ht 1.575 m (5' 2) Wt 70.3 kg (155 lb) SpO2 98% Gen: NAD, conversational, pleasant, cooperative Eyes: EOMI; [...] testing: Personally reviewed. Assessment & Plan: # [id number] thyroid cancer (PTC) s/p total thyroidectomy requiring sacrifice of Right RLN/tracheal resection/reanastomosis, bilateral lateral and central neck dissection, and WARD - Follows with endocrine - Planning for radioiodine tx next few [...] urinating before making it bathroom. Rx'd oxybutynin last visit, patient reports total improvement in symptoms - Continue oxybutynin - Ob-rag cutting machine tender follow-up for well-woman exam. Preventative Care/Health Maintenance: [...] indicated. Patient discussed with attending physician, Dr. Finch who agrees with my assessment and plan Return to clinic in 3 months Adriana Adams DO 06/10/2022 3:28 PM PGY-3 Internal Medicine CTOR OF SCOUT WORK Associated attestation - Alejo Finch III, MD - 08/20/2022 1:57 PM DIRECTOR OF SCOUT WORK Attending Physician Attestation I discussed the patient and reviewed the resident's note at the time of the visit and I agree with history, physical exam, assessment, and plan. Date of service: 08/12/2022 Alejo Finch III, MD documented in this encounter Plan of Treatment Upcoming Encounters Date Type Department Care Team (Late st Contact Info) Description 07/25/2024 10:00 AM DIRECTOR OF SCOUT WORK Office Visit [facility] - Endocrinology [address] [place] [phone] Yosi Bustamante MD [address] [place] [address] 2L [place] [address] 07/26/2024 10:00 AM DIRECTOR OF SCOUT WORK Appointment [facility] [address] [place] [phone] Neri Delgado MD [address] [place] [address] 07/26/2024 10:00 AM DIRECTOR OF SCOUT WORK Office Visit [facility] - ENT [address] [place] [phone] Myra Farmer, JEWELRY CONSULTANT [address] [place] [address] 2L [place] [phone] 07/26/2024 11:15 AM DIRECTOR OF SCOUT WORK Office Visit [facility] - ENT [address] [place] [phone] Neri Delgado MD [address] [place] [address] 08/02/2024 2:20 PM DIRECTOR OF SCOUT WORK Appointment [facility] [address] [place] [address] 08/02/2024 3:00 PM DIRECTOR OF SCOUT WORK Office Visit [facility] - Hematology/Oncology [address] [place] [phone] Remi Beckett MD [address] [place] [phone] 08/18/2024 1:45 PM DIRECTOR OF SCOUT WORK Office Visit [facility] - ENT [address] [place] [phone] Neri Delgado MD [address] [place] [address] documented as of this encounter Results * HIV-1 HIV-2 ANTIBODY + HIV P24 AG PANEL (New on 11/18) (08/14/2022 3:21 PM DIRECTOR OF SCOUT WORK) HIV Antigen/Antibod y 1 & 2 Non-reacti ve Non-react oswaldo 08/14/2022 4:18 PM DIRECTOR OF SCOUT WORK [facility] Comment:No Laboratory eviden ce of HIV infection. Blood BLOOD SPECIMEN / Unknown Lab Venipuncture / Unknown 08/14/2022 3:21 PM DIRECTOR OF SCOUT WORK 08/14/2022 3:33 PM DIRECTOR OF SCOUT WORK Adriana Adams DO LAB - CHEMISTRY ASH WE[facility]ER [facility] [address] [place] [address], [facility] [phone] documented in this encounter Visit Diagnoses Diagnosis Preventative health care- Primary Routine general medical examination at a health care facility Thyroid cancer (HCC) Malignant neoplasm of thyroid gland documented in this encounter Care Teams Manager Call Relationship Specialty Start Date End Date Taniya Grimes MD [address] [place] [phone] PCP - General 07/15/22 10/06/22 Adriana Adams DO [address] [place] [phone] Resident - PCP Internal Medicine 04/06/22 01/12/23 documented as of this encounter
--- OUTSIDE RECORDS SUMMARY | 2024-07-23 07:13 | XMS_ITS | Encounter Summary ---
Author Organization [facility] Health Address [address] [place] [address] Care Team Providers Care Industrial Servicer Name Role Phone Adriana Adams DO Unavailable Taniya Grimes MD Primary Care Provider Reason for Visit * Radiology Services (Routine) - Closed Specialty Diagnoses / Procedures Referred By Tuac t Referred To Contact Nuclear Medicine Diagnoses Postoperative hypothyroidism Thyroid cancer (HCC) Hypocalcemia Other hypoparathyroidism (HCC) Procedures NM THYROID WHOLE BODY SCAN Yosi Bustamante MD [address] [place] [address] 2L [place] [address] Referral ID Status Reason Start Date Expiration Date Visits Re quested Visits Authorized [id number] Closed 08/24/2022 08/24/2023 1 1 Encounter Details Date Type Department Care Team (Latest Contact Info) Description 08/18/2022 2:00 PM MANUFACTURING OPERATIONS MANAGER - 08/18/2022 11:59 PM [facility] Hospital Encounter [facility] NUCLEAR MEDICINE [address] [place] [address] Ysoi Bustamante MD [address] [place] [address] 2L Div [place], [place] [phone] Discharge Disposition: Home or Self Care Social [...] A DAY 60 capsule 11 02/22/2022 05/28/2023 [id number] PO Take by mouth once daily 06/13/2023 [...] fluticasone propionate (FLONASE) 50 MCG/ACT nasal spray [place]ner 2 (two) sprays into each nostril once daily 48 g 10/20/2021 11/25/2022 gabapentin (Neurontin) 300 MG capsuleIndications:Prima ry osteoarthritis of left hip Take 1 (one) capsule by mouth 3 times daily 90 capsule 5 04/06/2022 11/19/2022 [id number]-[id number]-UVS-C-H YAL PO Take 1 tablet by mouth [...] six day supply. 21 tablet 04/10/2022 09/14/2022 [facility] Natural Products (NEURIVA PO) Take 2 [...] st Contact Info) Description 07/25/2024 10:00 AM MANUFACTURING OPERATIONS MANAGER [facility] End[facility] [address] [place] [phone] Yosi Bustamante MD [address] [place] [address] 2L [place] [address] 07/26/2024 10:00 AM MANUFACTURING OPERATIONS MANAGER Appointment [facility] DIAGNOSTIC RAD [address] [place] [phone] Neri Delgado MD [address] [place] [address] 07/26/2024 10:00 AM MANUFACTURING OPERATIONS MANAGER Office Visit [facility] - ENT [address] [place] [phone] Myra Farmer, FURNITURE ARRANGER [address] [place] [address] 2L [place] [phone] 07/26/2024 11:15 AM MANUFACTURING OPERATIONS MANAGER Office Visit [facility] - ENT [address] [place] [phone] Neri Delgado MD [address] [place] [phone] 08/02/2024 2:20 PM MANUFACTURING OPERATIONS MANAGER Appointment [facility] [address] [place] [phone] 08/02/2024 3:00 PM MANUFACTURING OPERATIONS MANAGER Office Visit [facility] - Hematology/Oncology [address] [place] [phone] Remi Beckett MD [address] [place] [phone] 08/18/2024 1:45 PM MANUFACTURING OPERATIONS MANAGER Office Visit [facility] - ENT [address] [place] [phone] Neri Delgado MD [address] [place] [phone] documented as of this encounter Procedures Procedure Name Priority Date/Time Associated Diagnosis Comments NM TUMOR LOCAL SPECT CT Routine 08/19/2022 3:24 PM MANUFACTURING OPERATIONS MANAGER Postoperative hypothyroidism Thyroid cancer (HCC) Hypocalcemia Other hypoparathyroidism (CMS/HCC) NM THYROID WHOLE BODY SCAN Routine 08/19/2022 3:24 PM MANUFACTURING OPERATIONS MANAGER Postoperative hypothyroidism Thyroid cancer (HCC) Hypocalcemia Other hypoparathyroidism (CMS/HCC) documented in this encounter Results * NM TUMOR LOCAL SPECT CT (08/19/2022 3:24 PM MANUFACTURING OPERATIONS MANAGER) Anatomical Region Laterality Modality Nuclear Medicine 08/19/2022 3:55 PM MANUFACTURING OPERATIONS MANAGER Impressions 08/19/2022 4:38 PM MANUFACTURING OPERATIONS MANAGER Impression: Focal uptake in anteriorly in the left aspect of the mid cervical spine, suggestive of metastatic disease. Further evaluation with MRI cervical spine is recommended to better evaluate the site of the recurrence and the proximity to the spinal cord. Results discussed with Dr. Bustamante by Dr. Sy on 08/19/2022 at 3:35 PM. > Dictated by Donald Mayer MD (Endodontics Dentist) 08/19/2022 4:15 PM Tiesha Mckeon DO have personally reviewed and interpreted this examination/study. > Interpreting Provider: Tiesha Sy DO on 08/19/2022 4:38 PM Narrative 08/19/2022 4:38 PM MANUFACTURING OPERATIONS MANAGER PROCEDURE: ??NM THYROID WHOLE BODY SCAN, NM TUMOR LOCAL SPECT CT, DATE/TIME OF EXAM: ??08/19/2022 3:24 PM, LOCATION ??[facility] INDICATION: E89.0: Postoperative hypothyroidism C73: [...] CT,DATE/TIME OF EXAM: 08/19/2022 3:24 PM, LOCATION [facility] INDICATION: E89.0: Postoperative hypothyroidism C73: [...] PM. > Dictated by Donald Mayer MD (Endodontics Dentist) 08/19/2022 4:15 PM ITiesha DO have personally reviewed and interpreted this examination/study. > Interpreting Provider: Tiesha Sy DO on 08/19/2022 4:38 PM Yosi Bustamante MD NM ORDERABLES * NM THYROID WHOLE BODY SCAN (08/19/2022 3:24 PM MANUFACTURING OPERATIONS MANAGER) Anatomical Region Laterality Modality Chest Nuclear Medicine 08/19/2022 3:55 PM MANUFACTURING OPERATIONS MANAGER Impressions 08/19/2022 4:38 PM MANUFACTURING OPERATIONS MANAGER Impression: Focal uptake in anteriorly in the left aspect of the mid cervical spine, suggestive of metastatic disease. Further evaluation with MRI cervical spine is recommended to better evaluate the site of the recurrence and the proximity to the spinal cord. Results discussed with Dr. Bustamante by Dr. Sy on 08/19/2022 at 3:35 PM. > Dictated by Donald Mayer MD (Endodontics Dentist) 08/19/2022 4:15 PM Tiesha Mckeon DO have personally reviewed and interpreted this examination/study. > Interpreting Provider: Tiesha Sy DO on 08/19/2022 4:38 PM Narrative 08/19/2022 4:38 PM MANUFACTURING OPERATIONS MANAGER PROCEDURE: ??NM THYROID WHOLE BODY SCAN, NM TUMOR LOCAL SPECT CT, DATE/TIME OF EXAM: ??08/19/2022 3:24 PM, LOCATION ??[facility] INDICATION: E89.0: Postoperative hypothyroidism C73: [...] CT,DATE/TIME OF EXAM: 08/19/2022 3:24 PM, LOCATION [facility] INDICATION: E89.0: Postoperative hypothyroidism C73: [...] PM. > Dictated by Donald Mayer MD (Endodontics Dentist) 08/19/2022 4:15 PM Tiesha Mckeon DO have personally reviewed and interpreted this examination/study. > Interpreting Provider: Tiesha Sy DO on 08/19/2022 4:38 PM Yosi Bustamante MD NM ORDERABLES documented in this encounter Visit Diagnoses Diagnosis Postoperative hypothyroidism Postsurgical hypothyroidism Thyroid cancer (HCC) Malignant neoplasm of thyroid gland Hypocalcemia Other hypoparathyroidism (HCC) Postoperative hypothyroidism Postsurgical hypothyroidism Thyroid cancer (HCC) Malignant neoplasm of thyroid gland Hypocalcemia Other hypoparathyroidism (HCC) documented in this encounter Administered Medications Inactive Administered Medications - up to 3 most recent administrations Medication Order MAR Action Action Date Dose Rate Site I-123 sodium iodide capsule CAPS 4 millicurie 4 millicurie, Oral, ONCE, 1 dose, On Wed08/18/22 at 1500 $ Given 08/18/2022 2:39 PM MANUFACTURING OPERATIONS MANAGER 3.25 millicuries documented in this encounter Care Teams Industrial Servicer Relationship Specialty Start Date End Date Taniya Grimes MD [address] [place] [address] PCP - General 07/15/22 10/06/22 Adriana Adams DO [address] [place] [address] Resident - PCP Internal Medicine 04/06/22 01/12/23 documented as of this encounter
--- OUTSIDE RECORDS SUMMARY | 2024-07-23 07:13 | XMS_ITS | Encounter Summary ---
Author Organization [facility] Address [address] [facility] [place] [address] Care Team Providers Care Pet Walker Name Role Phone Adriana Adams DO Unavailable Taniya Grimes MD Primary Care Provider Reason for Visit * Reason Onset Date Comments Reminder Call 07/23/2022 Encounter Details Date Type Department Care Team (Late st Contact Info) Description 07/23/2022 Telephone Transitional Care at [address] [phone] Mary Beth Aguero, RN Reminder Call Social History Tobacco Use Types Packs/Day Years Used Date Smoking Tobacco: Heavy Smoker Cigarettes 0.5 51 Started: 07/22/1973 Smokeless Tobacco: Never Alcohol Use Standard Drinks/Week Comments No 0 (1 standard drink = 0.6 oz pur e alcohol) PHQ-2 Answer Date Recorded PHQ2 TOTAL SCORE 4 06/10/2022 Sex and Gender Information Value Date Recorded Sex Assigned at Not on file Gender Identity Not on file Sexual Orientation Not on file COVID-19 Exposure Response Date Recorded In the last 10 days, have yo u been in contact with someone who was confirmed or suspected to have Coronavirus/COVID-19? No / Unsure 06/25/2022 10:01 AM ADMIN PROG COORD documented as of this encounter Functional Status [...] Notes * Telephone Encounter - Mary Beth Aguero RN - 07/23/2022 10:16 AM CST Contacted patient to confirm [facility] appt scheduled for tomorrow at 1500. Appt date, time, location, and instructions to bring current medications confirmed with patient. Also instructed patient to bring any DC paperwork from [facility]. N PROG COORD documented in this encounter Plan of Treatment Upcoming Encounters Date Type Department Care Team (Late st Contact Info) Description 07/25/2024 10:00 AM ADMIN PROG COORD Office Visit [facility] - Endocrinology [address] [place] [phone] Yosi Bustamante MD [address] [place] [address] 2L [place] [address] 07/26/2024 10:00 AM ADMIN PROG COORD Appointment [facility] [address] [place] [phone] Neri Delgado MD [address] [place] [address] 07/26/2024 10:00 AM ADMIN PROG COORD Office Visit [facility] - ENT [address] [place] [phone] Myra Farmer, RESEARCH ASST [address] [place] [address] 2L [place] [phone] 07/26/2024 11:15 AM ADMIN PROG COORD Office Visit [facility] - ENT [address] [place] [phone] Neri Delgado MD [address] [place] [address] 08/02/2024 2:20 PM ADMIN PROG COORD Appointment [facility] [address] [place] [address] 08/02/2024 3:00 PM ADMIN PROG COORD Office Visit [facility] - Hematology/Oncology [address] [place] [phone] Remi Beckett MD [address] [place] [phone] 08/18/2024 1:45 PM ADMIN PROG COORD Office Visit [facility] Group - ENT [address] [place] [phone] Neri Delgado MD [address] [place] [address] documented as of this encounter Visit Diagnoses Not on filedocumented in this encounter Care Teams Pet Walker Relationship Specialty Start Date End Date Taniya Grimes MD [address] [place] [address] OF GEN [place] [phone] PCP - General 07/15/22 10/06/22 Adriana Adams DO [address] [place] [phone] Resident - PCP Internal Medicine 04/06/22 01/12/23 documented as of this encounter
--- OUTSIDE RECORDS SUMMARY | 2024-07-23 07:13 | XMS_ITS | Encounter Summary ---
Author Organization [facility] Health Address [address] [facility] [place] [address] Care Team Providers Care Dairy Quality Assurance Officer Name Role Phone Adriana Adams DO Unavailable Joseph Manzanares MD Primary Care Provider [phone] Reason for Visit * Reason Onset Date Comments Hospital Follow-up 07/13/2022 Encounter Details Date Type Department Care Team (Late st Contact Info) Description 07/13/2022 Telephone [facility] General Internal Medicine [address] [facility] [place] [phone] Joseph Manzanares MD [address] [place] [phone] Hospital Follow-up Social History Tobacco Use Types Packs/Day [...] Coronavirus/COVID-19? No / Unsure 06/25/2022 10:01 AM COLOR DEVELOPER documented as of this encounter Functional Status [...] Telephone Encounter - Lexii Birch RN - 07/13/2022 8:54 AM CST Pt calling for follow-up for UTI. States she was in [facility] from 07/06/22 to Wednesday07/12/22. States she had UTI, altered mental state, IV antibiotics. She is home now and supposed to picker / packer oral antibiotics. No appts available with Dr Adams till August. Attempted to be Transferred to [facility] to schedule hosp f/u. Spoke to pharmacist Eve. Staff will call her to schedule. Relayed information to patient. Pt also scheduled for earlier f/u with Dr Adams for 08/12/22. She asked for help scheduling her [place] Thyroid whole body scan . Spoke to Isa in [place] and she states she will call nurse at [facility] and discuss when is best time to schedule the test. The test requires coming in for contrast and coming back following day. R DEVELOPER documented in this encounter Plan of Treatment Upcoming Encounters Date Type Department Care Team (Late st Contact Info) Description 07/25/2024 10:00 AM COLOR DEVELOPER Office Visit [facility] - Endocrinology [facility], [place] [phone] Yosi Bustamante MD [address] [place] [address] [place] [address] 07/26/2024 10:00 AM COLOR DEVELOPER Appointment [facility] [address] [place] [phone] Neri Delgado MD [address] [place] [address] 07/26/2024 10:00 AM COLOR DEVELOPER Office Visit [facility] - ENT [address] [place] [phone] Myra Farmer, HOSPITAL LIAISON [address] [place] [address] [place] [phone] 07/26/2024 11:15 AM COLOR DEVELOPER Office Visit [facility] - ENT [address] [place] [phone] Neri Delgado MD [address] [place] [address] 08/02/2024 2:20 PM COLOR DEVELOPER Appointment [facility] [address] [place] [address] 08/02/2024 3:00 PM COLOR DEVELOPER Office Visit [facility] - Hematology/Oncology [address] [place] [phone] Remi Beckett MD [address] [place] [phone] 08/18/2024 1:45 PM COLOR DEVELOPER [facility] E[facility] [address] [place] [phone] Neri Delgado MD [address] [place] [address] documented as of this encounter Visit Diagnoses Not on filedocumented in this encounter Care Teams Dairy Quality Assurance Officer Relationship Specialty Start Date End Date Joseph Manzanares MD [address] [place] [phone] PCP - General Internal Medicine 06/10/22 07/14/22 Adriana Adams DO [address] [place] [address] Resident - PCP Internal Medicine 04/06/22 01/12/23 documented as of this encounter
--- OUTSIDE RECORDS SUMMARY | 2024-07-23 07:13 | XMS_ITS | Encounter Summary ---
Author Organization [facility] Health Address [address] [place] [place] [address] Care Team Providers Care Personal Secretary Name Role Phone Adriana Adams DO Unavailable Taniya Grimes MD Primary Care Provider Reason for Visit * Reason Onset Date Comments MEDICATION REFILL 07/28/2022 Encounter Details Date Type Department Care Team (Late st Contact Info) Description 07/28/2022 Refill [facility] [address] [place] [address], [place] [address] Taniya Grimes MD [address] [place] [address] [place] [address] MEDICATION REFILL Social History Tobacco Use Types [...] Telephone Encounter - Esther Branch RN - 07/28/2022 10:11 AM FIRST COAT SANDER Pt calling requesting refills on her meds as ordered at [facility] d/c. Requesting Cyclobenzaprine 5mg TID PRN muscle spasms and also Lidocaine 5% patches apply 2 patches to the most painful areas for 12 hours on and 12hours off. States that she takes the Cyclobenzaprine TID routinely and also the Lidocaine 2 patches daily as they are helping with her left shoulder pain. Pt was unable to keep her 07/24 appt with the [facility] and states she will f/u with Dr. Adams on 08/12/22. Refill Request Brisa Hogan ELE: 06-10-22 NOV scheduled: 08-12-22 Allergies: Allergies Allergen Reactions ??? Kiwi Extract Anaphylaxis ??? Shellfish Allergy Other Passed out after eating lobster but can eat shrimp and crab Pended Medication Order: Requested Prescriptions Pending Prescriptions Disp Refills ??? cyclobenzaprine (Flexeril) 5 MG tablet 90 tablet 0 Sig: Take 1 (one) tablet by mouth 3 times daily as needed (muscle spasms) ??? lidocaine (Lidoderm) 5 % patch 60 patch 0 Sig: Apply 2 (two) patches to skin once daily Apply patch to most painful area and remove after 12 hours. May reapply a new patch 12 hours later. T COAT SANDER documented in this encounter Plan of Treatment Upcoming Encounters Date Type Department Care Team (Late st Contact Info) Description 07/25/2024 10:00 AM FIRST COAT SANDER Office Visit [facility] - Endocrinology [address] [place] [address], [place] [address] Yosi Bustamante MD [address] [place] [address] [place] [address] 07/26/2024 10:00 AM FIRST COAT SANDER Appointment [facility] [address] [place] [address] Neri Delgado MD [address] [place] [address] 07/26/2024 10:00 AM FIRST COAT SANDER Office Visit [facility] - ENT [address] [place] [phone] Myra Farmer, LYMPHEDEMA THERAPIST [address] [place] [address] [place] [phone] 07/26/2024 11:15 AM FIRST COAT SANDER Office Visit [facility] - ENT [address] [place] [phone] Neri Delgado MD [address] [place] [address] 08/02/2024 2:20 PM FIRST COAT SANDER Appointment [facility] [address] [place] [address] 08/02/2024 3:00 PM FIRST COAT SANDER Office Visit [facility] - Hematology/Oncology [address] [place] [phone] Remi Beckett MD [address] [place] [phone] 08/18/2024 1:45 PM FIRST COAT SANDER Office Visit [facility] - ENT [address] [place] [phone] Neri Delgado MD [address] [place] [address] documented as of this encounter Visit Diagnoses Not on filedocumented in this encounter Care Teams Personal Secretary Relationship Specialty Start Date End Date Taniya Grimes MD [address] [place] [phone] PCP - General 07/15/22 10/06/22 Adriana Adams DO [address] [place] [address] Resident - PCP Internal Medicine 04/06/22 01/12/23 documented as of this encounter
--- OUTSIDE RECORDS SUMMARY | 2024-07-23 07:13 | XMS_ITS | Encounter Summary ---
Author Organization [facility] Health Address [address] [facility] [place] [address] Care Team Providers Care Acds Block 1 Operator Name Role Phone Adriana Adams DO Unavailable Taniya Grimes MD Primary Care Provider Encounter Details Date Type Department Care Team (Latest Contact Info) Description 08/07/2022 12:50 PM CURRICULUM DESIGNER - 08/07/2022 11:59 PM [facility] Hospital Encounter [facility] [address] [place] [phone] Discharge Disposition: Home or Self Care Social [...] at bedtime 06/25/2020 acetaminophen (Tylenol) 500 MG tablet Take 2 (two) tablets by mouth every 6 hours as needed for Fever or Pain Maximum allowable Acetaminophen amount = 4 Grams (4000 mg) / 24 hours. 0 02/05/2022 08/12/2022 acetaminophen (TYLENOL) 500 MG tabletIndications:Pain Take 2 (two) tablets by mouth every 6 hours as needed Reasons: Pain 06/13/2023 atorvastatin (Lipitor) 40 MG tabletIndications:Hype rlipidemia, unspecified hyperlipidemia type TAKE 1 TABLET BY MOUTH EVERYDAY AT BEDTIME 30 tablet 3 05/14/2022 02/16/2023 atorvastatin (Lipitor) 40 MG tabletIndications:Hype rlipidemia, unspecified hyperlipidemia type TAKE 1 TABLET BY MOUTH EVERYDAY AT BEDTIME 30 tablet 3 05/14/2022 08/12/2022 B Complex Vitamins (B COMPLEX 1 PO) Take by mouth once daily 12/24/2022 BUPROPION HCL ER, SR, PO Take 100 mg by mouth once daily 09/02/2022 calcitriol (Rocaltrol) 0.5 MCG capsuleIndications:Pos toperative hypothyroidism,Thyroid cancer (HCC),Hypocalcemia TAKE 1 CAPSULE BY MOUTH TWICE A DAY 60 capsule 11 02/22/2022 05/28/2023 [id number] PO Take by mouth once daily 06/13/2023 [...] fluticasone propionate (FLONASE) 50 MCG/ACT nasal spray [place] 2 (two) sprays into each nostril once daily 48 g 10/20/2021 11/25/2022 gabapentin (Neurontin) 300 MG capsuleIndications:Nicole favio osteoarthritis of left hip Take 1 (one) capsule by mouth 3 times daily 90 capsule 5 04/06/2022 11/19/2022 [id number] -HYAL PO Take 1 tablet by mouth [...] six day supply. 21 tablet 04/10/2022 09/14/2022 [facility] Natural Products (NEURIVA PO) Take 2 capsules by mouth every morning 09/14/2022 naproxen (Naprosyn) 500 MG tablet Take 1 (one) tablet by mouth 2 times daily as needed 07/17/2022 10/06/2022 nicotine (NICODERM CQ) 14 MG/24HR patchIndications:Tobac co use disorder Apply 1 (one) patch to skin once daily 30 patch 6 10/29/2021 10/21/2022 pantoprazole EC (Protonix) 40 MG tabletIndications:Justo roesophageal reflux disease, unspecified whether esophagitis present TAKE ONE TABLET BY MOUTH ONCE DAILY FOR STOMACH 90 tablet 05/14/2022 01/13/2023 thyrotropin tayo (THYROGEN) injectionIndications:M alignant Neoplasm of [...] st Contact Info) Description 07/25/2024 10:00 AM CURRICULUM DESIGNER Office Visit [facility] - Endocrinology [address] [place] [phone] Yosi Bustamante MD [address] [place] [address] 2L [place] [address] 07/26/2024 10:00 AM CURRICULUM DESIGNER Appointment [facility] [address] [place] [phone] Neri Delgado MD [address] [place] [address] 07/26/2024 10:00 AM CURRICULUM DESIGNER Office Visit [facility] - ENT [address] [place] [phone] Myra Farmer, GANG PLANK WORKMAN [address] [place] [address] 2L [place] [phone] 07/26/2024 11:15 AM CURRICULUM DESIGNER Office Visit [facility] [address] [place] [phone] Neri Delgado MD [address] [place] [address] 08/02/2024 2:20 PM CURRICULUM DESIGNER Appointment [facility] [address] [place] [address] 08/02/2024 3:00 PM CURRICULUM DESIGNER Office Visit [facility] - Hematology/Oncology [address] [place] [phone] Remi Beckett MD [address] [place] [phone] 08/18/2024 1:45 PM CURRICULUM DESIGNER Office Visit [facility] - ENT [address] [place] [phone] Neri Delgado MD [address] [place] [address] documented as of this encounter Procedures Procedure Name Priority Date/Time Associated Diagnosis Comments THYROGLOBULIN REFLEX PROFILE Routine 08/07/2022 12:59 PM CURRICULUM DESIGNER Postoperative hypothyroidism Thyroid cancer (HCC) Hypocalcemia Other hypoparathyroidism (CMS/HCC) THYROGLOBULIN BY ANTONIETA RFLXED Routine 08/07/2022 12:59 PM CURRICULUM DESIGNER Postoperative hypothyroidism Thyroid cancer (HCC) Hypocalcemia Other hypoparathyroidism (CMS/HCC) TSH REFLEX FREE T4 Routine 08/07/2022 12 :58 PM CURRICULUM DESIGNER Thyroid cancer (HCC) T4 FREE Routine 08/07/2022 12:58 PM CURRICULUM DESIGNER Thyroid cancer (HCC) documented in this encounter Results * (ABNORMAL) THYROGLOBULIN BY ANTONIETA RFLXED (08/07/2022 12:59 PM CURRICULUM DESIGNER) Thyroglobulin by ANTONIETA 383.0(H) 1.5 - 38.5 ng/mL 08/14/2022 5:08 PM CURRICULUM DESIGNER [facility] ([facility]) Comment: Results confirmed on dilution. According to [...] is 0.1 ng/mL Thyroglobulin measured by Lisbet Chandler Immunometric Assay Blood BLOOD SPECIMEN / Unknown Lab Venipuncture / Unknown 08/07/2022 12:59 PM CURRICULUM DESIGNER 08/07/2022 2:07 PM CURRICULUM DESIGNER Narrative [facility] ([facility]) - 08/14/2022 5:08 PM CURRICULUM DESIGNER Performed at: ??01 - [address] ??[id number] Hand Stapler: Oral Melendez PhD, Phone: ??[phone] Yosi Bustamante MD LAB - CHEMISTRY ORD ERABLES Performing Organization Address [facility] Phone Number [facility] ([facility]) [address] [place] [address], [facility] * THYROGLOBULIN REFLEX PROFILE (08/07/2022 12:59 PM CURRICULUM DESIGNER) Thyroglobulin Antibody <1.0 0.0 - 0.9 IU/mL 08/14/2022 5:08 PM CURRICULUM DESIGNER [facility] ([facility]) Comment:Thyroglobulin Antibo dy measured by Lisbet Chandler Methodology Blood BLOOD SPECIMEN / Unknown Lab Venipuncture / Unknown 08/07/2022 12:59 PM CURRICULUM DESIGNER 08/07/2022 2:07 PM CURRICULUM DESIGNER [facility] - 08/14/2022 5:08 PM CURRICULUM DESIGNER Performed at: ??01 - [facility] ??[id number] Hand Stapler: Oral Melendez PhD, Phone: ??[phone] Yosi Bustamante MD LAB - CHEMISTRY ORD ERABLES Performing Organization Address City/[facility]/ZIP Co de Phone Number [facility] ([facility]) [address] [place] [address], [facility] * (ABNORMAL) T4 FREE (08/07/2022 12:58 PM CURRICULUM DESIGNER) T4 Free <0.4(L) 0.7 - 1.5 ng/dL 08/07/2022 4:00 PM CURRICULUM DESIGNER [facility] Blood BLOOD SPECIMEN / Unknown Lab Venipuncture / Unknown 08/07/2022 12:58 PM CURRICULUM DESIGNER 08/07/2022 2:10 PM CURRICULUM DESIGNER Yosi Bustamante MD LAB - CHEMISTRY ORD ERABLES Performing Organization Address City/[facility]/ZIP Co de Phone Number [facility] [address] [place] [address], [facility] [phone] * (ABNORMAL) TSH REFLEX FREE T4 (08/07/2022 12:58 PM CURRICULUM DESIGNER) Pathologist [facility] TSH 165.839(H) 0.350 - 4.940 uIU/mL 08/07/2022 3:27 PM CURRICULUM DESIGNER [facility] Comment:Result obtained by yaa holliday. Blood BLOOD SPECIMEN / Unknown Lab Venipuncture / Unknown 08/07/2022 12:58 PM CURRICULUM DESIGNER 08/07/2022 2:10 PM CURRICULUM DESIGNER Yosi Bustamante MD LAB - CHEMISTRY ORD ERABLES Performing Organization Address City/[facility]/ZIP Co de Phone Number [address] [address], [facility] [phone] documented in this encounter Visit Diagnoses Diagnosis Thyroid cancer (HCC)- Primary Malignant neoplasm of thyroid gland Postoperative hypothyroidism Postsurgical hypothyroidism Hypocalcemia Other hypoparathyroidism (HCC) documented in this encounter Care Teams Acds Block 1 Operator Relationship Specialty Start Date End Date Taniya Grimes MD [address] [facility] 2L DIV OF [facility] [place] [place] [phone] PCP - General 07/15/22 10/06/22 Adriana Adams DO [address] [place] [phone] Resident - PCP Internal Medicine 04/06/22 01/12/23 documented as of this encounter
--- OUTSIDE RECORDS SUMMARY | 2024-07-23 07:13 | XMS_ITS | Encounter Summary ---
Author Organization [facility] Health Address [address] [facility] [place] [address] Care Team Providers Care Marketing Recruiter Name Role Phone Adriana Adams DO Unavailable Joseph Manzanares MD Primary Care Provider [phone] Reason for Visit * Reason Comments Establish Care Encounter Details Date Type Department Care Team (Latest Contact Info) Description 06/10/2022 1:30 PM FLORAL ASSOCIATE Office Visit [facility] General Internal Medicine [address] [place] [phone] Adriana Adams DO [address] [place] [address] Left shoulder pain, unspecified chronicity (Primary Dx); Need for influenza vaccination; Urinary incontinence, unspecified type; Chronic pain after cancer treatment; High cholesterol; Postoperative hypothyroidism; Thyroid cancer (HCC); Other hypoparathyroidism (CMS/HCC); Primary osteoarthritis of left hip; Cigarette nicotine dependence without complication; Depression, unspecified depression type Social History Tobacco Use Types Packs/Day Years Used Date Smoking Tobacco: Heavy Smoker Cigarettes 0.5 51 Started: 07/22/1973 Smokeless Tobacco: Never Tobacco Cessation:Ready to Q uit: Not Asked; Counseling Given: Not Answered Alcohol Use Standard Drinks/Week Comments No 0 [...] Sign Reading Time Taken Comments Blood Pressure 115/68 06/10/2022 2:00 PM FLORAL ASSOCIATE Pulse 94 06/10/2022 2:00 PM FLORAL ASSOCIATE Temperature 36.1 ??C (96.9 ??F) 06/10/2022 2:00 PM CS T Respiratory Rate - - Oxygen Saturation 94% 06/10/2022 2:00 PM FLORAL ASSOCIATE Inhaled Oxygen Concentration - - Weight 71.7 kg (158 lb) 06/10/2022 2:00 PM FLORAL ASSOCIATE Height 157.5 cm (5' 2) 06/10/2022 2:00 PM FLORAL ASSOCIATE Body Mass Index 28.9 06/10/2022 2:00 PM FLORAL ASSOCIATE documented in this encounter Functional Status Functional [...] * Patient Instructions* Adriana Adams DO - 06/10/2022 3:15 PM FLORAL ASSOCIATE Ms. Hogan, you were seen in the [facility] Internal Medicine clinic to establish care. Below is a summary of your visit. 1) We will be able to give you medical clearance for shoulder replacement 2) You will need to try to stop ibuprofen and/or celebrex because your kidney function is worsening. 3) We will have you obtain a urinalysis and urine drug screen at the lab downstairs. We will be able to give you pain medicine if your urine is cleared. 4) A referral to obgyn has been sent to your pharmacy 5) Additionally, we will start you on a medication for your urinary incontinence called oxybutynin. AL ASSOCIATE documented in this encounter Progress Notes * Adriana Adams DO - 06/10/2022 2:09 PM CST [facility] General Internal Medicine New Patient Note CC: Chief Complaint Patient presents with ??? Establish Care History of Present Illness: Brisa Hogan is a 61 year old female w/PMHx thyroid cancer presenting [...] urine) - Needs dental clearance as well Past Medical History: Reviewed and updated in [...] Endocrine: heat intolerance;cold intolerance Physical Exam: BP 115/68 Pulse 94 Temp 96.9 ??F (36.1 ??C) (Skin) Ht 5' 2 (1.575 m) Wt 158 lb (71.7 kg) SpO2 94% Gen: NAD, conversational, pleasant, cooperative Eyes: EOMI; [...] testing: Personally reviewed. Assessment & Plan: # [id number] thyroid cancer (PTC) s/p total thyroidectomy requiring sacrifice of Right RLN/tracheal resection/reanastomosis, bilateral lateral and central neck dissection, and WARD - Follows with endocrine - Planning for radioiodine tx in 07/2021. Unfortunately, patient states will need to be radioiodine free prior to surgery, concerned about timing of surgery and need for thyroid cancer treatment. Advised that she should refer to endocrine/oncology. We will sign for medical clearance for surgery thisvisit, however. # Chronic left shoulder pain - Fell directly onto left shoulder and pain much worse. Needs medical clearance for left shoulder arthroplasty - Medical clearance form signed and to be faxed to Dr. Lauren - Pain controlled currently using ibuprofen (2 tablets), tylenol, celebrex. Notable CARYL on bmp on previous blood work. Advised patient to decrease ibuprofen and celebrex dose, preferably stop ibuprofen altogether. - Attempted to sign pain contract in clinic, however patient was unable to urinate in clinic and doUDS. Will need to obtain this next clinic visit. # Urinary Incontinence # Oliguria??? - Patient states she's not been urinating enough. Advised patient that she will need to be evaluated immediately if unable to produce urine or having diffculty peeing. Patient states she does pee andactually notes incontinence symptoms - urinating before making it bathroom. - Will start oxybutynin. 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 Preventative Care/Health Maintenance: [...] indicated. Patient discussed with attending physician, Dr. Manzanares who agrees with my assessment and plan Return to clinic in 3 months Adriana Adams DO 06/10/2022 6:07 PM PGY-3 Internal Medicine AL ASSOCIATE Associated attestation - Joseph Manzanares MD - 06/11/2022 11:07 PM FLORAL ASSOCIATE Attending Physician Attestation I saw and examined the patient with the resident, and I agree with the resident's history, physicalexam, and assessment and plan. Date of Service: 06/10/2022 Joseph Manzanares MD documented in this encounter Plan of Treatment Upcoming Encounters Date Type Department Care Team (Late st Contact Info) Description 07/25/2024 10:00 AM FLORAL ASSOCIATE Office Visit [facility] - Endocrinology [address] [place] [phone] Yosi Bustamante MD [address] [place] [address] [place] [address] 07/26/2024 10:00 AM FLORAL ASSOCIATE Appointment [facility] [address] [place] [phone] Neri Delgado MD [address] [place] [address] 07/26/2024 10:00 AM FLORAL ASSOCIATE Office Visit [facility] - ENT [address], [place] [address] Myra Farmer, SURVEYOR'S ASSISTANT [address] [place] [address] [place] [phone] 07/26/2024 11:15 AM FLORAL ASSOCIATE Office Visit [facility] - ENT [address] [place] [phone] Neri Delgado MD [address] [place] [address] 08/02/2024 2:20 PM FLORAL ASSOCIATE Appointment [facility] [address] [place] [address] 08/02/2024 3:00 PM FLORAL ASSOCIATE Office Visit [facility] - Hematology/Oncology [address] [place] [phone] Remi Beckett MD [address] [place] [phone] 08/18/2024 1:45 PM FLORAL ASSOCIATE [facility] [address] [place] [phone] Neri Delgado MD [address] [place] [address] documented as of this encounter Results * DRUG SCREEN TOX URINE PANEL (IN HOUSE) (08/14/2022 4:09 PM FLORAL ASSOCIATE) Pathologist [facility] Amphetamines Screen Urine Negative Negative: < 1000 ng/mL 08/14/2022 5:03 PM [facility] Barbiturates Screen Urine Negative Negative: < 200 ng/mL 08/14/2022 5:03 PM [facility] Benzodiazepine Screen Urine Negative Negative: < 200 ng/mL 08/14/2022 5:03 PM [facility] Opiates Urine Negative Negative: < 300 ng/mL 08/14/2022 5:03 PM [facility] Cocaine Metabolites Urine Negative Negative: < 300 ng/mL 08/14/2022 5:03 PM [facility] Phencyclidine Screen Urine Negative Negative: < 25 ng/ml 08/14/2022 5:03 PM [facility] Cannabinoids Screen Urine Negative Negative: <50 ng/mL 08/14/2022 5:03 PM [facility] Methadone Screen Urine Negative Negative: < 300 ng/mL 08/14/2022 5:03 PM [facility] Fentanyl Screen Urine Negative Negative: <1.5 ng/mL 08/14/2022 5:03 PM [facility] Urine URINE / Unknown Collection / Unknown 08/14/2022 4:09 PM [facility] 08/14/2022 4:25 PM [facility] - 08/14/2022 5:03 PM [facility] The Urine Toxicology Screening Panel does not screen for Propoxyphene, Meprobamate, Carisoprodol, Trazodone, blsk-dpc-iobfttd medications and/or volatiles (Acetone, Isopropanol, Methanol or Ethylene Glycol). Ethanol, Salicylate, Acetaminophen, Tricyclic Antidepressants and several therapeutic drugs may be individually assayed in serum or plasma specimen. Toxicology testing by the [facility] is an aid to medical diagnosis and treatment of patients. No documented chain of custody was maintained. Results are intended to be used for clinical purposes only. ? Adriana Adams DO LAB - URINE CHEMISTR Y ORDERABLES [facility] [address] [place] [address], [facility] [phone] documented in this encounter Visit Diagnoses Diagnosis Left shoulder pain, unspecified chronicity- Primary Need for influenza vaccination Need for prophylactic vaccination and inoculation against influenza Urinary incontinence, unspecified type Chronic pain after cancer treatment High cholesterol Pure hypercholesterolemia Postoperative hypothyroidism Postsurgical hypothyroidism Thyroid cancer (HCC) Malignant neoplasm of thyroid gland Other hypoparathyroidism (HCC) Primary osteoarthritis of left hip Primary localized osteoarthrosis, pelvic region and thigh Cigarette nicotine dependence without complication Tobacco use disorder Depression, unspecified depression type documented in this encounter Care Teams Marketing Recruiter Relationship Specialty Start Date End Date Joseph Manzanares MD [address] [place] [phone] PCP - General Internal Medicine 06/10/22 07/14/22 Adriana Adams DO [address] [place] [phone] Resident - PCP Internal Medicine 04/06/22 01/12/23 documented as of this encounter
--- OUTSIDE RECORDS SUMMARY | 2024-07-23 07:13 | XMS_ITS | Encounter Summary ---
Author Organization [facility] Address [address] [place] [address] Care Team Providers Care Factory Assembler Name Role Phone Adriana Adams DO Unavailable Taniya Grimes MD Primary Care Provider Reason for Referral * Radiology Services (Urgent) - Closed Specialty Diagnoses / Procedures Referred By Yuan robins Referred To Contact MRI Diagnoses Thyroid cancer (HCC) Postoperative hypothyroidism Procedures MRI CERVICAL SPINE WWO CONT Yosi Bustamante MD [address] [place] [address] 2L [place] [address] [facility] Mri [address] [place] [address] Referral ID Status Reason Start Date Expiration Date Visits Re quested Visits Authorized [id number] Closed 08/19/2022 08/19/2023 1 1 LATION AND FLOORING ASSEMBLER Encounter Details Date Type Department Care Team (Late st Contact Info) Description 08/19/2022 Orders Only [facility], Diabetes and Metabolism [address] [facility], [place] [phone] Yosi Bustamante MD [address] [place] [address] 2L [place] [address] Thyroid cancer (HCC) ; Postoperative hypothyroidism Social History Tobacco Use Types [...] st Contact Info) Description 07/25/2024 10:00 AM INSULATION AND FLOORING ASSEMBLER Office Visit [facility] Endocrinology [address] [place] [phone] Yosi Bustamante MD [address] [place] [address] 2L Div of [place] [address] 07/26/2024 10:00 AM INSULATION AND FLOORING ASSEMBLER Appointment [facility] DI[facility]IC RAD [address] [place] [address] Neri Delgado MD [address] [place] [address] 07/26/2024 10:00 AM INSULATION AND FLOORING ASSEMBLER Office Visit [facility] - ENT [address] [place] [phone] Myra Farmer, GUEST HOUSE MANAGER [address] [place] [address] 2L [place] [address] 07/26/2024 11:15 AM INSULATION AND FLOORING ASSEMBLER Office Visit [facility] [address] [place] [phone] Neri Delgado MD [address] [place] [address] 08/02/2024 2:20 PM INSULATION AND FLOORING ASSEMBLER Appointment [facility] [address] [place] [address] 08/02/2024 3:00 PM INSULATION AND FLOORING ASSEMBLER Office Visit [facility] - Hematology/Oncology [address] [place] [phone] Remi Beckett MD [address] [place] [phone] 08/18/2024 1:45 PM INSULATION AND FLOORING ASSEMBLER Office Visit [facility] - ENT [address] [place] [phone] Neri Delgado MD [address] [place] [address] documented as of this encounter Results * MRI CERVICAL SPINE WWO CONT (08/21/2022 3:59 PM INSULATION AND FLOORING ASSEMBLER) Anatomical Region Laterality Modality Spine Magnetic Resonan ce 08/24/2022 2:49 PM INSULATION AND FLOORING ASSEMBLER Impressions 08/24/2022 8:18 PM INSULATION AND FLOORING ASSEMBLER IMPRESSION: 1.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 [...] 08/24/2022 8:18 PM Narrative 08/24/2022 8:18 PM INSULATION AND FLOORING ASSEMBLER PROCEDURE: ??MRI CERVICAL SPINE WWO CONT, DATE/TIME OF EXAM: ??08/21/2022 3:59 PM, LOCATION ??[facility] INDICATION: C73: Thyroid [...] CERVICAL SPINE WWO CONT, DATE/TIME OF EXAM: 33:59 PM, LOCATION [facility] [...] of thyroid gland Postoperative hypothyroidism Postsurgical hypothyroidism Thyroid cancer (HCC) Malignant neoplasm of thyroid gland Postoperative hypothyroidism Postsurgical hypothyroidism documented in this encounter Care Teams Factory Assembler Relationship Specialty Start Date End Date Taniya Grimes MD [address] [place] [address] PCP - General 07/15/22 10/06/22 Adriana Adams DO [address] [place] [address] Resident - PCP Internal Medicine 04/06/22 01/12/23 documented as of this encounter
--- OUTSIDE RECORDS SUMMARY | 2024-07-23 07:13 | XMS_ITS | Encounter Summary ---
Author Organization [facility] Health Address [address] [place] [address] Care Team Providers Care Evp And Chief Operating Officer Name Role Phone Adriana Adams DO Unavailable Taniya Grimes MD Primary Care Provider [phone] Encounter Details Date Type Department Care Team (Latest Contact Info) Description 08/14/2022 Travel Social History Tobacco Use Types Packs/Day [...] st Contact Info) Description 07/25/2024 10:00 AM OXYGEN THERAPIST Office Visit [facility] [address] [place] [address] Yosi Bustamante MD [address] [place] [address] 2L [place] [address] 07/26/2024 10:00 AM OXYGEN THERAPIST Appointment [facility] DIAGNOSTIC RAD [address] [place] [address] Neri Delgado MD [address] [place] [address] 07/26/2024 10:00 AM OXYGEN THERAPIST Office Visit [facility] - ENT [address] [place] [phone] Myra Farmer, HISTOLOGICAL ILLUSTRATOR [address] [place] [address] 2L [place] [phone] 07/26/2024 11:15 AM OXYGEN THERAPIST Office Visit [facility] [address] [place] [phone] Neri Delgado MD [address] [place] [address] 08/02/2024 2:20 PM OXYGEN THERAPIST Appointment [facility] [address] [place] [address] 08/02/2024 3:00 PM OXYGEN THERAPIST Office Visit [facility] - Hematology/Oncology [address] [place] [phone] Remi Beckett MD [address] [place] [phone] 08/18/2024 1:45 PM OXYGEN THERAPIST Office Visit [facility] [address] [place] [phone] Neri Delgado MD [address] [place] [address] documented as of this encounter Visit Diagnoses Not on filedocumented in this encounter Care Teams Evp And Chief Operating Officer Relationship Specialty Start Date End Date Taniya Grimes MD [address] [place] [address] PCP - General 07/15/22 10/06/22 Adriana Adams DO [address] [place] [address] Resident - PCP Internal Medicine 04/06/22 01/12/23 documented as of this encounter
--- OUTSIDE RECORDS SUMMARY | 2024-07-23 07:13 | XMS_ITS | Encounter Summary ---
Author Organization [facility] Health Address [address] [facility] [place] [address] Care Team Providers Care Gas Mask Assembler Name Role Phone Adriana Adams DO Unavailable Taniya Grimes MD Primary Care Provider [phone] Reason for Visit * Reason Onset Date Comments Pre-op Clearance 07/23/2022 Encounter Details Date Type Department Care Team (Late st Contact Info) Description 07/23/2022 Telephone [facility] [address] [place] [address], [place] [address] Mary Beth Lauren MD [address] [place] [address] [address] [place] [address] Pre-op Clearance Social History Tobacco Use Types Packs/Day Years [...] Coronavirus/COVID-19? No / Unsure 06/25/2022 10:01 AM CHIEF ENGINEERING DIVISION documented as of this encounter Functional Status [...] st Contact Info) Description 07/25/2024 10:00 AM CHIEF ENGINEERING DIVISION Office Visit [facility] - Endocrinology [address] [place] [phone] Yosi Bustamante MD [address] [place] [address] 2L [place] [address] 07/26/2024 10:00 AM CHIEF ENGINEERING DIVISION Appointment [facility] DIAGNOSTIC RAD [address] [place] [address] Neri Delgado MD [address] [place] [address] 07/26/2024 10:00 AM CHIEF ENGINEERING DIVISION Office Visit [facility] Group - ENT [address] [place] [phone] Myra Farmer, STERILE PROCESS TECH [address] [place] [address] 2L [place] [address] 07/26/2024 11:15 AM CHIEF ENGINEERING DIVISION Office Visit [facility] - ENT [address] [place] [phone] Neri Delgado MD [address] [place] [address] 08/02/2024 2:20 PM CHIEF ENGINEERING DIVISION Appointment [facility] [address] [place] [address] 08/02/2024 3:00 PM CHIEF ENGINEERING DIVISION Office Visit [facility] Group - Hematology/Oncology [address] [place] [phone] Remi Beckett MD [address] [place] [phone] 08/18/2024 1:45 PM CHIEF ENGINEERING DIVISION Office Visit [facility] ENT [address] [place] [phone] Neri Delgado MD [address] [place] [address] documented as of this encounter Visit Diagnoses Not on filedocumented in this encounter Care Teams Gas Mask Assembler Relationship Specialty Start Date End Date Taniya Grimes MD [address] [place] [address] 2L [place] [phone] PCP - General 07/15/22 10/06/22 Adriana Adams DO [address] [place] [phone] Resident - PCP Internal Medicine 04/06/22 01/12/23 documented as of this encounter
--- OUTSIDE RECORDS SUMMARY | 2024-07-23 07:13 | XMS_ITS | Encounter Summary ---
Author Organization [facility] Health Address [address] [place] [address] Care Team Providers Care Management Sme Name Role Phone Adriana Adams DO Unavailable Joseph Manzanares MD Primary Care Provider [phone] Encounter Details Date Type Department Care Team (Latest Contact Info) Description 06/25/2022 Travel Social History Tobacco Use Types Packs/Day [...] Coronavirus/COVID-19? No / Unsure 06/25/2022 10:01 AM DRAWING FRAME TENDER documented as of this encounter Functional Status [...] st Contact Info) Description 07/25/2024 10:00 AM DRAWING FRAME TENDER Office Visit [facility] - Endocrinology [address] [place] [phone] Yosi Bustamante MD [address] [place] [address] 2L Div [place] [address] 07/26/2024 10:00 AM DRAWING FRAME TENDER Appointment [facility] DIAGNOSTIC RAD [address] [place] [address] Neri Delgado MD [address] [place] [address] 07/26/2024 10:00 AM DRAWING FRAME TENDER Office Visit [facility] - ENT [address] [place] [phone] Myra Farmer, FOREX TRADER [address] [place] [address] 2L [place] [address] 07/26/2024 11:15 AM DRAWING FRAME TENDER Office Visit [facility] - ENT [address] [place] [phone] Neri Delgado MD [address] [place] [address] 08/02/2024 2:20 PM DRAWING FRAME TENDER Appointment [facility] CENTER [address] [place] [address] 08/02/2024 3:00 PM DRAWING FRAME TENDER Office Visit [facility] Group - Hematology/Oncology [address] [place] [phone] Remi Beckett MD [address] [place] [phone] 08/18/2024 1:45 PM DRAWING FRAME TENDER Office Visit [facility] ENT [address] [place] [phone] Neri Delgado MD [address] [place] [address] documented as of this encounter Visit Diagnoses Not on filedocumented in this encounter Care Teams Management Sme Relationship Specialty Start Date End Date Joseph Manzanares MD [facility] [place] [phone] PCP - General Internal Medicine 06/10/22 07/14/22 Adriana Adams DO [address] [place] [phone] Resident - PCP Internal Medicine 04/06/22 01/12/23 documented as of this encounter
--- OUTSIDE RECORDS SUMMARY | 2024-07-23 07:13 | XMS_ITS | Encounter Summary ---
Author Organization [facility] Health Address [address] [place] [address] Care Team Providers Care Counselor/Art Therapist Name Role Phone Adriana Aadms DO Unavailable Joseph Manzanares MD Primary Care Provider [phone] Encounter Details Date Type Department Care Team (Latest Contact Info) Description 07/02/2022 11:45 AM MICROWAVE ENGINEER - 07/02/2022 11:59 PM MICROWAVE ENGINEER Hospital Encounter [facility] OP DRAW STATION [address] [place] [phone] Discharge Disposition: Home or Self Care Social [...] Coronavirus/COVID-19? No / Unsure 06/25/2022 10:01 AM MICROWAVE ENGINEER documented as of this encounter Functional Status [...] A DAY 60 capsule 11 02/22/2022 05/28/2023 [id number] PO Take by mouth once daily 06/13/2023 [...] fluticasone propionate (FLONASE) 50 MCG/ACT nasal spray [place] 2 (two) sprays into each nostril once daily 48 g 10/20/2021 11/25/2022 gabapentin (Neurontin) 300 MG capsuleIndications:Nicole favio osteoarthritis of left hip Take 1 (one) capsule by mouth 3 times daily 90 capsule 5 04/06/2022 11/19/2022 [id number]-C -HYAL PO Take 1 tablet by mouth 3 times daily 06/13/2023 levothyroxine (SYNTHROID) 112 MCG tabletIndications:Post operative hypothyroidism Take 1 (one) tablet by mouth once daily 90 tablet 4 10/08/2021 07/06/2022 liothyronine (Cytomel) 25 MCG tabletIndications:Hypo thyroidism,Malignant Neoplasm of Thyroid Take 1 (one) tablet by mouth 2 times daily for 20 days Start 07/05/2022 and end 07/25/22 as substitute for levothyroxine for three weeks Reasons: Cancer of Thyroid, Underactive Thyroid 40 tablet 07/05/2022 07/25/2022 methylPREDNISolone (Medrol Dosepak) 4 MG tablet Take by mouth as directed Follow package insert dosing for six day supply. 21 tablet 04/10/2022 09/14/2022 Misc Natural Products (NEURIVA PO) Take 2 capsules by mouth every morning 09/14/2022 nicotine (NICODERM CQ) 14 MG/24HR patchIndications:Tobac co [...] st Contact Info) Description 07/25/2024 10:00 AM MICROWAVE ENGINEER Office Visit [facility] - Endocrinology [address] [place] [phone] Yosi Bustamante MD [address] [place] [address] 2L [place] [address] 07/26/2024 10:00 AM MICROWAVE ENGINEER Appointment [facility] DIAGNOSTIC RAD [address] [place] [address] Neri Delgado MD [address] [place] [address] 07/26/2024 10:00 AM MICROWAVE ENGINEER Office Visit [facility] - ENT [address] [place] [phone] Myra Farmer, OPTICIANRY TEACHER [address] [place] [address] 2L [place] [address] 07/26/2024 11:15 AM MICROWAVE ENGINEER Office Visit [facility] - ENT [address] [place] [phone] Neri Delgado MD [address] [place] [address] 08/02/2024 2:20 PM MICROWAVE ENGINEER Appointment [facility] [address] [place] [address] 08/02/2024 3:00 PM MICROWAVE ENGINEER Office Visit [facility] - Hematology/Oncology [address] [place] [phone] Remi Beckett MD [address] [place] [phone] 08/18/2024 1:45 PM MICROWAVE ENGINEER Office Visit [facility] - ENT [address] [place] [phone] Neri Delgado MD [address] [place] [address] documented as of this encounter Procedures Procedure Name Priority Date/Time Associated Diagnosis Comments THYROGLOBULIN REFLEX PROFILE Routine 07/02/2022 12:44 PM MICROWAVE ENGINEER Postoperative hypothyroidism Thyroid cancer (HCC) Hypocalcemia Other hypoparathyroidism (CMS/HCC) THYROGLOBULIN BY ANTONIETA RFLXED Routine 07/02/2022 12:44 PM MICROWAVE ENGINEER Postoperative hypothyroidism Thyroid cancer (HCC) Hypocalcemia Other hypoparathyroidism (CMS/HCC) TSH REFLEX FREE T4 Routine 07/02/2022 12 :44 PM MICROWAVE ENGINEER Postoperative hypothyroidism Thyroid cancer (HCC) Hypocalcemia Other hypoparathyroidism (CMS/HCC) T4 FREE Routine 07/02/2022 12:44 PM MICROWAVE ENGINEER Postoperative hypothyroidism Thyroid cancer (HCC) Hypocalcemia Other hypoparathyroidism (CMS/HCC) documented in this encounter Results * (ABNORMAL) THYROGLOBULIN BY ANTONIETA RFLXED (07/02/2022 12:44 PM MICROWAVE ENGINEER) Thyroglobulin by ANTONIETA 205.9(H) 1.5 - 38.5 ng/mL 07/03/2022 6:08 PM MICROWAVE ENGINEER [facility] ([facility]) Comment: According to the National [...] is 0.1 ng/mL Thyroglobulin measured by [facility] [place] Immunometric Assay Blood BLOOD SPECIMEN / Unknown Lab Venipuncture / Unknown 07/02/2022 12:44 PM MICROWAVE ENGINEER 07/02/2022 2:08 PM MICROWAVE ENGINEER Narrative [facility] ([facility]) - 07/03/2022 6:08 PM MICROWAVE ENGINEER Performed at: ??01 - [facility] ??[id number] Sales Mgr: Oral Melendez PhD, Phone: ??[phone] Yosi Bustamante MD LAB - CHEMISTRY ORD ERABLES Performing Organization Address [facility] Phone Number [facility] ([facility]) [address] [place] [address], [facility] [[email or web address]] * THYROGLOBULIN REFLEX PROFILE (07/02/2022 12:44 PM MICROWAVE ENGINEER) Pathologist [facility] Thyroglobulin Antibody <1.0 0.0 - 0.9 IU/mL 07/03/2022 6:08 PM MICROWAVE ENGINEER [facility] ([facility]) Comment:Thyroglobulin Antibo dy measured by [facility] [place] Methodology Blood BLOOD SPECIMEN / Unknown Lab Venipuncture / Unknown 07/02/2022 12:44 PM MICROWAVE ENGINEER 07/02/2022 2:08 PM MICROWAVE ENGINEER Narrative [facility] ([facility]) - 07/03/2022 6:08 PM MICROWAVE ENGINEER Performed at: ??01 - [facility] [address] ??[id number] Sales Mgr: Oral Melendez PhD, Phone: ??[phone] Yosi Bustamante MD LAB - CHEMISTRY ORD ERABLES Performing Organization Address [facility] Co de Phone Number [facility] ([facility]) [address] [place] [address], [facility] [[email or web address]] * T4 FREE (07/02/2022 12:44 PM MICROWAVE ENGINEER) T4 Free 1.2 0.7 - 1.5 ng/dL 07/02/2022 3:14 PM MICROWAVE ENGINEER [facility] Blood BLOOD SPECIMEN / Unknown Lab Venipuncture / Unknown 07/02/2022 12:44 PM MICROWAVE ENGINEER 07/02/2022 2:24 PM MICROWAVE ENGINEER Yosi Bustamante MD LAB - CHEMISTRY ORD ERABLES [address] [address], [facility] [[email or web address]] [phone] * TSH REFLEX FREE T4 (07/02/2022 12:44 PM MICROWAVE ENGINEER) TSH 1.008 0.350 - 4.940 uIU/mL 07/02/2022 3:14 PM MICROWAVE ENGINEER [facility] Blood BLOOD SPECIMEN / Unknown Lab Venipuncture / Unknown 07/02/2022 12:44 PM MICROWAVE ENGINEER 07/02/2022 2:24 PM MICROWAVE ENGINEER Yosi Bustamante MD LAB - CHEMISTRY ORD [facility] [address] [address], [facility] [[email or web address]] [phone] documented in this encounter Visit Diagnoses Diagnosis Postoperative hypothyroidism- Primary Postsurgical hypothyroidism Thyroid cancer (HCC) Malignant neoplasm of thyroid gland Hypocalcemia Other hypoparathyroidism (HCC) documented in this encounter Care Teams Counselor/Art Therapist Relationship Specialty Start Date End Date Joseph Manzanares MD [address] [place] [phone] PCP - General Internal Medicine 06/10/22 07/14/22 Adriana Adams DO [address] [place] [phone] Resident - PCP Internal Medicine 04/06/22 01/12/23 documented as of this encounter
--- OUTSIDE RECORDS SUMMARY | 2024-07-23 07:13 | XMS_ITS | Encounter Summary ---
Author Organization [facility] Address [address] [facility] [place] [address] Care Team Providers Care Maintainability Engineer Name Role Phone Adriana Adams DO Unavailable Joseph Manzanares MD Primary Care Provider [phone] Reason for Visit * Reason Comments Transitional Care Encounter Details Date Type Department Care Team (Late st Contact Info) Description 07/13/2022 Transitional Care Transitional Care at [address] [address] Anaya Benavidez, cabin crew Social History Tobacco Use Types Packs/Day Years [...] Coronavirus/COVID-19? No / Unsure 06/25/2022 10:01 AM TELEMARKETING SALES REPRESENTATIVE documented as of this encounter Functional Status [...] encounter Miscellaneous Notes * Telephone Encounter - Anaya Benavidez RN - 07/13/2022 1:56 PM CST RN 48 hour post discharge follow-up contact by telephone: Patient with recent IP discharge from [facility] on 07/12/22. This RN contacted Brisa Hogan by telephone ([phone]) to complete 48 hour post-discharge follow-up contact for [facility] appointment. 1) How are you feeling? Patient states she is feeling ok 2) How is your mobility? Patient states mobility isn't good, she is weak & painful 3) New concerns or problems? No 4) Have you had to go the ER for any reason? No 5) Any questions about your discharge diagnosis and instructions? No 6) Do you have a follow up appointment made? Scheduled Bridge appt for 07/24/22 @ 1500. Instructed on location, parking and to bring current medications. Bridge brochure with appt details mailed to patient. 7) Do you currently have home health, any questions about home care? No 8) Have you filled all of your RX's? Yes 9) Any questions or concerns that we can help you with? No Brisakailyn Hogan denied any questions related to diet, medications, or condition at this time. Patient was encouraged to call this instructional writer with questions, concerns, barriers to care, and/or additional resources if needed. Patient verbalized understanding and agreement with plan. This RN will continue to provide post-discharge monitoring until patient completes Bridge clinic follow up. Call Duration: 5 min Anaya Benavidez RN, BSN Special Effects Person, [facility] Office: [phone] 07/13/2022 MARKETING SALES REPRESENTATIVE documented in this encounter Plan of Treatment Upcoming Encounters Date Type Department Care Team (Late st Contact Info) Description 07/25/2024 10:00 AM TELEMARKETING SALES REPRESENTATIVE Office Visit [facility] - Endocrinology [facility], [place] [address] Yosi Bustamante MD [address] [place] [address] 2L [place] [address] 07/26/2024 10:00 AM TELEMARKETING SALES REPRESENTATIVE Appointment [facility] [address] [place] [address] Neri Delgado MD [address] [place] [address] 07/26/2024 10:00 AM TELEMARKETING SALES REPRESENTATIVE Office Visit [facility] - ENT [address] [place] [phone] Myra Farmer, MASONRY CONTRACTOR [address] [place] [address] 2L [place] [phone] 07/26/2024 11:15 AM TELEMARKETING SALES REPRESENTATIVE Office Visit [facility] - ENT [address] [place] [phone] Neri Delgado MD [address] [place] [address] 08/02/2024 2:20 PM TELEMARKETING SALES REPRESENTATIVE Appointment [facility] [address] [place] [address] 08/02/2024 3:00 PM TELEMARKETING SALES REPRESENTATIVE Office Visit [facility] - Hematology/Oncology [address] [place] [phone] Remi Beckett MD [address] [place] [phone] 08/18/2024 1:45 PM TELEMARKETING SALES REPRESENTATIVE Office Visit [facility] - ENT [address] [place] [phone] Neri Delgado MD [address] [place] [address] documented as of this encounter Visit Diagnoses Not on filedocumented in this encounter Care Teams Maintainability Engineer Relationship Specialty Start Date End Date Joseph Manzanares MD [address] [place] [phone] PCP - General Internal Medicine 06/10/22 07/14/22 Adriana Adams DO [address] [place] [phone] Resident - PCP Internal Medicine 04/06/22 01/12/23 documented as of this encounter
--- OUTSIDE RECORDS SUMMARY | 2024-07-23 07:13 | XMS_ITS | Encounter Summary ---
Author Organization [facility] Address [address] [facility] [place] [address] Care Team Providers Care Marketing Sales Supervisor Name Role Phone Adriana Adams DO Unavailable Taniya Grimes MD Primary Care Provider [phone] Encounter Details Date Type Department Care Team (Latest Contact Info) Description 08/07/2022 Travel Social History Tobacco Use Types Packs/Day [...] Contact Info) Description 07/25/2024 10:00 AM DIESEL FLEET MECHANIC Office Visit [facility] - Endocrinology [address] [place] [address] Yosi Bustamante MD [address] [place] [address] 2L [place] [address] 07/26/2024 10:00 AM DIESEL FLEET MECHANIC Appointment [facility] [address] [place] [address] Neri Delgado MD [address] [place] [address] 07/26/2024 10:00 AM DIESEL FLEET MECHANIC Office Visit [facility] - ENT [address] [place] [phone] Myra Farmer, SET O TYPE OPERATOR [address] [place] [address] 2L [place] [phone] 07/26/2024 11:15 AM DIESEL FLEET MECHANIC Office Visit [facility] - ENT [address] [place] [phone] Neri Delgado MD [address] [place] [address] 08/02/2024 2:20 PM DIESEL FLEET MECHANIC Appointment [facility] [address] [place] [address] 08/02/2024 3:00 PM DIESEL FLEET MECHANIC Office Visit [facility] - Hematology/Oncology [address] [place] [phone] Remi Beckett MD [address] [place] [phone] 08/18/2024 1:45 PM DIESEL FLEET MECHANIC Office Visit [facility] - ENT [address] [place] [phone] Neri Delgado MD [address] [place] [address] documented as of this encounter Visit Diagnoses Not on filedocumented in this encounter Care Teams Marketing Sales Supervisor Relationship Specialty Start Date End Date Taniya Grimes MD [address] [place] [address] PCP - General 07/15/22 10/06/22 Adriana Adams DO [address] [place] [address] Resident - PCP Internal Medicine 04/06/22 01/12/23 documented as of this encounter
--- OUTSIDE RECORDS SUMMARY | 2024-07-23 07:13 | XMS_ITS | Encounter Summary ---
Author Organization [facility] Address [address] [facility] [place] [address] Care Team Providers Care Environmental Services Floor Tech Name Role Phone Adriana Adams DO Unavailable Taniya Grimes MD Primary Care Provider Encounter Details Date Type Department Care Team (Late st Contact Info) Description 08/20/2022 Orders Only [facility] - Orthopedics [facility]5 [facility], [place] [address] Mary Beth Lauren MD [address] [place] [address] DOOR [address],4 [place] [address] Pre-op testing Social History Tobacco Use Types [...] st Contact Info) Description 07/25/2024 10:00 AM FABRIC DESIGNER Office Visit [facility] - Endocrinology [address] [place] [phone] Yosi Bustamante MD [address] [place] [address] 2L [place] [address] 07/26/2024 10:00 AM FABRIC DESIGNER Appointment [facility] [address] [place] [address] Neri Delgado MD [address] [place] [address] 07/26/2024 10:00 AM FABRIC DESIGNER Office Visit [facility] - ENT [address] [place] [phone] Myra Farmer, FILM NUMBERER [address] [place] [address] 2L [place] [phone] 07/26/2024 11:15 AM FABRIC DESIGNER Office Visit [facility] - ENT [address] [place] [phone] Neri Delgado MD [address] [place] [address] 08/02/2024 2:20 PM FABRIC DESIGNER Appointment [facility] [address] [place] [address] 08/02/2024 3:00 PM FABRIC DESIGNER Office Visit [facility] - Hematology/Oncology [address] [place] [phone] [place] [address] [place] [phone] 08/18/2024 1:45 PM FABRIC DESIGNER Office Visit [facility] - ENT [address] [place] [phone] Neri Delgado MD [address] [place] [address] documented as of this encounter Visit Diagnoses Diagnosis Pre-op testing- Primary Preoperative examination, unspecified documented in this encounter Care Teams Environmental Services Floor Tech Relationship Specialty Start Date End Date Taniya Grimes MD [address] [place] [address] OF [facility] [place] [phone] PCP - General 07/15/22 10/06/22 Adriana Adams DO [address] [place] [phone] Resident - PCP Internal Medicine 04/06/22 01/12/23 documented as of this encounter
--- OUTSIDE RECORDS SUMMARY | 2024-07-23 07:13 | XMS_ITS | Encounter Summary ---
Author Organization [facility] Address [address] [facility] [place] [address] Care Team Providers Care Industrial Chemicals Supervisor Name Role Phone Adriana Adams DO Unavailable Taniya Grimes MD Primary Care Provider Encounter Details Date Type Department Care Team (Late st Contact Info) Description 08/13/2022 Orders Only [facility], Diabetes and Metabolism [address] [place] [address], [place] [phone] Yosi Bustamante MD [address] [place] [address] of Endocrinology [place], [place] [phone] Postoperative hypothyroidism ; Thyroid cancer (HCC) Social [...] st Contact Info) Description 07/25/2024 10:00 AM AEROSPACE STRESS ENGINEER Office Visit [facility] - Endocrinology [address] [place] [phone] Yosi Bustamante MD [address] [place] [address] 2L [place] [address] 07/26/2024 10:00 AM AEROSPACE STRESS ENGINEER Appointment [facility] [address] [place] [phone] Neri Delgado MD [address] [place] [address] 07/26/2024 10:00 AM AEROSPACE STRESS ENGINEER Office Visit [facility] - ENT [address] [place] [phone] Myra Farmer, HARDWARE ASSEMBLER [address] [place] [address] 2L [place] [phone] 07/26/2024 11:15 AM AEROSPACE STRESS ENGINEER Office Visit [facility] - ENT [address] [place] [phone] Neri Delgado MD [address] [place] [address] 08/02/2024 2:20 PM AEROSPACE STRESS ENGINEER Appointment [facility] [address] [place] [address] 08/02/2024 3:00 PM AEROSPACE STRESS ENGINEER Office Visit [facility] - Hematology/Oncology [address] [place] [phone] [place] [address] [place] [phone] 08/18/2024 1:45 PM AEROSPACE STRESS ENGINEER Office Visit [facility] - ENT [address] [place] [phone] Neri Delgado MD [address] [place] [address] documented as of this encounter Visit Diagnoses Diagnosis Postoperative hypothyroidism- Primary Postsurgical hypothyroidism Thyroid cancer (HCC) Malignant neoplasm of thyroid gland documented in this encounter Care Teams Industrial Chemicals Supervisor Relationship Specialty Start Date End Date Taniya Grimes MD [address] [place] [address] [place] [address] PCP - General 07/15/22 10/06/22 Adriana Adams DO [address] [place] [address] Resident - PCP Internal Medicine 04/06/22 01/12/23 documented as of this encounter
--- OUTSIDE RECORDS SUMMARY | 2024-07-23 07:13 | XMS_ITS | Encounter Summary ---
Author Organization [facility] Address [address] [facility] [place] [address] Care Team Providers Care Metallurgical Or Materials Technician Name Role Phone Adriana Adams DO Unavailable Taniya Grimes MD Primary Care Provider Reason for Visit * Reason Onset Date Comments Appointment 07/24/2022 Encounter Details Date Type Department Care Team (Late st Contact Info) Description 07/24/2022 Telephone Transitional Care at [address] [phone] Milly Jensen MA Appointment Social History Tobacco Use Types Packs/Day [...] Coronavirus/COVID-19? No / Unsure 06/25/2022 10:01 AM LINEN AIDE documented as of this encounter Functional Status [...] encounter Miscellaneous Notes * Telephone Encounter - Milly Jensen MA - 07/24/2022 1:14 PM LINEN AIDE Received call from patient that they needed to cancel their [facility] appointment on 07/24/22 due to not feeling well. Patient states she will be following up with her PCP. N AIDE documented in this encounter Plan of Treatment Upcoming Encounters Date Type Department Care Team (Late st Contact Info) Description 07/25/2024 10:00 AM LINEN AIDE Office Visit [facility] - Endocrinology [address] [place] [phone] Yosi Bustamante MD [address] [place] [address] 2L [place] [address] 07/26/2024 10:00 AM LINEN AIDE Appointment [facility] [address] [place] [address] Neri Delgado MD [address] [place] [address] 07/26/2024 10:00 AM LINEN AIDE Office Visit [facility] - ENT [address] [place] [phone] Myra Farmer, PROJECT ARCHITECT [address] [place] [address] 2L [place] [phone] 07/26/2024 11:15 AM LINEN AIDE Office Visit [facility] - ENT [address] [place] [phone] Neri Delgado MD [address] [place] [address] 08/02/2024 2:20 PM LINEN AIDE Appointment [facility] [address] [place] [address] 08/02/2024 3:00 PM LINEN AIDE Office [facility] - Hematology/Oncology [address] [place] [phone] Remi Beckett MD [address] [place] [phone] 08/18/2024 1:45 PM LINEN AIDE Office [facility] - ENT [address] [place] [phone] Neri Delgado MD [address] [place] [address] documented as of this encounter Visit Diagnoses Not on filedocumented in this encounter Care Teams Metallurgical Or Materials Technician Relationship Specialty Start Date End Date Taniya Grimes MD [address] [place] [address] OF [facility] [place] [phone] PCP - General 07/15/22 10/06/22 Adriana Adams DO [address] [place] [phone] Resident - PCP Internal Medicine 04/06/22 01/12/23 documented as of this encounter
--- OUTSIDE RECORDS SUMMARY | 2024-07-23 07:13 | XMS_ITS | Encounter Summary ---
Author Organization [facility] Health Address [address] [facility] [place] [address] Care Team Providers Care Racing Driver Name Role Phone Adriana Adams DO Unavailable Taniya Grimes MD Primary Care Provider [phone] Encounter Details Date Type Department Care Team (Latest Contact Info) Description 08/14/2022 2:42 PM CLINIC MGR - 08/14/2022 11:59 PM [facility] Hospital Encounter [facility] LAB OP DRAW STATION [address] [place] [phone] Discharge Disposition: Home or Self Care Social [...] A DAY 60 capsule 11 02/22/2022 05/28/2023 [id number] PO Take by mouth once daily 06/13/2023 [...] fluticasone propionate (FLONASE) 50 MCG/ACT nasal spray [place] 2 (two) sprays into each nostril once daily 48 g 10/20/2021 11/25/2022 gabapentin (Neurontin) 300 MG capsuleIndications:Prima ry osteoarthritis of left hip Take 1 (one) capsule by mouth 3 times daily 90 capsule 5 04/06/2022 11/19/2022 [id number] YAL PO Take 1 tablet by mouth [...] st Contact Info) Description 07/25/2024 10:00 AM CLINIC MGR Office Visit [facility] - Endocrinology [address] [place] [phone] Yosi Bustamante MD [address] [place] [address] 2L [place] [address] 07/26/2024 10:00 AM CLINIC MGR Appointment [facility] DIAGNOSTIC RAD [address] [place] [address] Neri Delgado MD [address] [address] 07/26/2024 10:00 AM CLINIC MGR Office Visit [facility] - ENT [address] [place] [phone] Myra Farmer, ELECTRICIAN RADIO [address] [place] [address] 2L [place] [phone] 07/26/2024 11:15 AM CLINIC MGR Office Visit [facility] - ENT [address] [place] [phone] Neri Delgado MD [address] [address] 08/02/2024 2:20 PM CLINIC MGR Appointment [facility] INF[facility]ION CENTER [address] [place] [address] 08/02/2024 3:00 PM CLINIC MGR Office Visit [facility] - Hematology/Oncology [address] [place] [phone] Remi Beckett MD [address] [place] [phone] 08/18/2024 1:45 PM CLINIC MGR Office Visit [facility] - ENT [address] [place] [phone] Neri Delgado MD [address] [place] [address] documented as of this encounter Procedures Procedure Name Priority Date/Time Associated Diagnosis Comments URINE DRUG SCREEN IMMUNOASSAY Routine 08/14/2022 4:09 PM CLINIC MGR Left shoulder pain, unspecified chronicity THYROGLOBULIN REFLEX PROFILE Routine 08/14/2022 3:21 PM CLINIC MGR Postoperative hypothyroidism Thyroid cancer (HCC) Hypocalcemia Other hypoparathyroidism (CMS/HCC) THYROGLOBULIN BY ANTONIETA RFLXED Routine 08/14/2022 3:21 PM CLINIC MGR Postoperative hypothyroidism Thyroid cancer (HCC) Hypocalcemia Other hypoparathyroidism (CMS/HCC) HIV-1 HIV-2 ANTIBODY + HIV P24 AG PANEL Routine 08/14/2022 3:21 PM CLINIC MGR Preventative health care TSH REFLEX FREE T4 Routine 08/14/2022 3: 21 PM CLINIC MGR Postoperative hypothyroidism Thyroid cancer (HCC) VITAMIN D 25-HYDROXY Routine 08/14/2022 3:21 PM CLINIC MGR Postoperative hypothyroidism Thyroid cancer (HCC) Hypocalcemia Other hypoparathyroidism (CMS/HCC) RENAL FUNCTION PANEL Routine 08/14/2022 3:21 PM CLINIC MGR Postoperative hypothyroidism Thyroid cancer (HCC) Hypocalcemia Other hypoparathyroidism (CMS/HCC) T4 FREE Routine 08/14/2022 3:21 PM CLINIC MGR Postoperative hypothyroidism Thyroid cancer (HCC) documented in this encounter Results * DRUG SCREEN TOX URINE PANEL (IN HOUSE) (08/14/2022 4:09 PM [facility]) [facility] Amphetamines Screen Urine Negative Negative: < 1000 ng/mL 08/14/2022 5:03 PM [facility] Barbiturates Screen Urine Negative Negative: < 200 ng/mL 08/14/2022 5:03 PM [facility] Benzodiazepine Screen Urine Negative Negative: < 200 ng/mL 08/14/2022 5:03 PM [facility] Opiates Urine Negative Negative: < 300 ng/mL 08/14/2022 5:03 PM [facility] Cocaine Metabolites Urine Negative Negative: < 300 ng/mL 08/14/2022 5:03 PM [facility] Phencyclidine Screen Urine Negative Negative: < 25 ng/ml 08/14/2022 5:03 PM [facility] Cannabinoids Screen Urine Negative Negative: <50 ng/mL 08/14/2022 5:03 PM [facility] Methadone Screen Urine Negative Negative: < 300 ng/mL 08/14/2022 5:03 PM [facility] Fentanyl Screen Urine Negative Negative: <1.5 ng/mL 08/14/2022 5:03 PM [facility] Urine URINE / Unknown Collection / Unknown 08/14/2022 4:09 PM [facility] 08/14/2022 4:25 PM [facility] - 08/14/2022 5:03 PM [facility] The Urine Toxicology Screening Panel does not screen for Propoxyphene, Meprobamate, Carisoprodol, Trazodone, xzcv-byx-whxpocs medications and/or volatiles (Acetone, Isopropanol, Methanol or Ethylene Glycol). Ethanol, Salicylate, Acetaminophen, Tricyclic Antidepressants and several therapeutic drugs may be individually assayed in serum or plasma specimen. Toxicology testing by the [facility] is an aid to medical diagnosis and treatment of patients. No documented chain of custody was maintained. Results are intended to be used for clinical purposes only. ? Adriana Adams DO LAB - URINE CHEMISTR Y ORDERABLES Performing Organization Address [facility] de Phone Number [facility] LABORATORY [facility] [address] [place] [address], [facility] [phone] * (ABNORMAL) THYROGLOBULIN BY ANTONIETA RFLXED (08/14/2022 3:21 PM CLINIC MGR) Thyroglobulin by ANTONIETA 629.0(H) 1.5 - 38.5 ng/mL 08/18/2022 6:08 PM CLINIC MGR [facility] ([facility]) Comment: Results confirmed on dilution. [...] is 0.1 ng/mL Thyroglobulin measured by Lisbet Goshen Immunometric Assay Blood BLOOD SPECIMEN / Unknown Lab Venipuncture / Unknown 08/14/2022 3:21 PM CLINIC MGR 08/14/2022 3:33 PM CLINIC MGR Narrative [facility] ([facility]) - 08/18/2022 6:08 PM CLINIC MGR Performed at: ??01 - [facility] [address] [facility], [place], [place] ??[id number] Wool Sampler: Oral Melendez PhD, Phone: ??[phone] Yosi Bustamante MD LAB - CHEMISTRY ORD ERABLES Performing Organization Address [facility] de Phone Number [facility] ([facility]) [address] [place] [address], [facility] * (ABNORMAL) T4 FREE (08/14/2022 3:21 PM CLINIC MGR) T4 Free <0.4(L) 0.7 - 1.5 ng/dL 08/14/2022 5:33 PM CLINIC MGR [facility] Blood BLOOD SPECIMEN / Unknown Lab Venipuncture / Unknown 08/14/2022 3:21 PM CLINIC MGR 08/14/2022 3:39 PM CLINIC MGR Yosi Bustamante MD LAB - CHEMISTRY ORDSrinivas WEAVER Performing Organization Address City/[facility]/ZIP Co de Phone Number [address] [address], [place] [phone] * HIV-1 HIV-2 ANTIBODY + HIV P24 AG PANEL (New on 11/18) (08/14/2022 3:21 PM CLINIC MGR) [facility] HIV Antigen/Antibod y 1 & 2 Non-reacti ve Non-react oswaldo 08/14/2022 4:18 PM CLINIC MGR [facility] Comment:No Laboratory eviden ce of HIV infection. Blood BLOOD SPECIMEN / Unknown Lab Venipuncture / Unknown 08/14/2022 3:21 PM CLINIC MGR 08/14/2022 3:33 PM CLINIC MGR Adriana Adams DO LAB - CHEMISTRY ASH WEAVER Performing Organization Address [facility]/ZIP Co de Phone Number [address] [address], [place] [phone] * THYROGLOBULIN REFLEX PROFILE (08/14/2022 3:21 PM CLINIC MGR) Pathologist [facility] Thyroglobulin Antibody <1.0 0.0 - 0.9 IU/mL 08/18/2022 6:08 PM CLINIC MGR [facility] ([facility]) Comment:Thyroglobulin Antibo dy measured by Lisbet Goshen Methodology Blood BLOOD SPECIMEN / Unknown Lab Venipuncture / Unknown 08/14/2022 3:21 PM CLINIC MGR 08/14/2022 3:33 PM CLINIC MGR Narrative [facility] ([facility]) - 08/18/2022 6:08 PM CLINIC MGR Performed at: ??01 - [facility] [address] [place], [place] ??[id number] Wool Sampler: Oral Melendez PhD, Phone: ??[phone] Yosi Bustamante MD LAB - CHEMISTRY ORD JENISE [facility] ([facility]) [address] [place] [address], [facility] * (ABNORMAL) VITAMIN D 25-HYDROXY (08/14/2022 3:21 PM CLINIC MGR) [facility] Vitamin D, 25 Hydroxy 21.0(L) 30.0 - 80.0 ng/mL 08/14/2022 4:45 PM CLINIC MGR [facility] Comment: The recommendations for 25-Hydroxy Vitamin [...] Lab Venipuncture / Unknown 08/14/2022 3:21 PM CLINIC MGR 08/14/2022 3:39 PM CLINIC MGR Yosi Bustamante MD LAB - CHEMISTRY SHANDRA BURDEN Performing Organization Address [facility]/ZIP Co de Phone Number [address] [address], [place] [phone] * (ABNORMAL) RENAL FUNCTION PANEL (08/14/2022 3:21 PM CLINIC MGR) BUN 13 7 - 26 mg/dL 08/14/2022 4:15 PM [facility] Creatinine 1.11(H) 0.56 - 0.96 mg/dL 08/14/2022 4:15 PM [facility] Sodium 138 136 - 145 mmol/L 08/14/2022 4:15 PM [facility] Potassium 3.6 3.5 - 4.5 mmol/L 08/14/2022 4:15 PM [facility] Chloride 103 98 - 107 mmol/L 08/14/2022 4:15 PM [facility] CO2 23 22 - 29 mmol/L 08/14/2022 4:15 PM [facility] Glucose 84 70 - 115 mg/dL 08/14/2022 4:15 PM [facility] Albumin 3.7 3.4 - 5.0 g/dL 08/14/2022 4:15 PM [facility] Calcium 8.3(L) 8.4 - 10.2 mg/dL 08/14/2022 4:15 PM [facility] Phosphorus 4.2 2.9 - 5.1 mg/dL 08/14/2022 4:15 PM [facility] Anion Gap 16 8 - 18 08/14/2022 4:15 PM [facility] BUN/Creatinine Ratio 12 7 - 23 08/14/2022 4:15 PM [facility] Osmolality Calculated 285 270 - 300 mOsm/kg 08/14/2022 4:15 PM [facility] eGFR by CKD-EPI 56(L) >=90 mL/min/1.7 3 m2 08/14/2022 4:15 PM [facility] Blood BLOOD SPECIMEN / Unknown Lab Venipuncture / Unknown 08/14/2022 3:21 PM CLINIC MGR 08/14/2022 3:39 PM [facility] Yosi Bustamante MD LAB - CHEMISTRY ORD ERABLES [facility] [address] [place] [address], [facility] [phone] * (ABNORMAL) TSH REFLEX FREE T4 (08/14/2022 3:21 PM CLINIC MGR) TSH 208.891(H) 0.350 - 4.940 uIU/mL 08/14/2022 5:01 PM CLINIC MGR [facility] Comment:Result obtained by yaa holliday. Blood BLOOD SPECIMEN / Unknown Lab Venipuncture / Unknown 08/14/2022 3:21 PM CLINIC MGR 08/14/2022 3:39 PM CLINIC MGR Yosi Bustamante MD LAB - CHEMISTRY ASH WEAVER [facility] [address] [place] [address], [facility] [phone] documented in this encounter Visit Diagnoses Diagnosis Postoperative hypothyroidism- Primary Postsurgical hypothyroidism Thyroid cancer (HCC) Malignant neoplasm of thyroid gland Hypocalcemia Other hypoparathyroidism (HCC) Left shoulder pain, unspecified chronicity Preventative health care Routine general medical examination at a health care facility documented in this encounter Care Teams Racing Driver Relationship Specialty Start Date End Date Taniya Grimes MD [address] [facility] 2L DIV OF [facility] [place] [phone] PCP - General 07/15/22 10/06/22 Adriana Adams DO [address] [place] [phone] Resident - PCP Internal Medicine 04/06/22 01/12/23 documented as of this encounter
--- OUTSIDE RECORDS SUMMARY | 2024-07-23 07:13 | XMS_ITS | Encounter Summary ---
Author Organization [facility] Health Address [address] [place] [address] Care Team Providers Care Machine Plate Stacker Name Role Phone Adriana Adams DO Unavailable Joseph Manzanares MD Primary Care Provider [phone] Reason for Visit * Reason Comments Refill Request Encounter Details Date Type Department Care Team (Late st Contact Info) Description 07/03/2022 Refill [facility] Endocrinology, Diabetes and Metabolism [address] [place] [address], [facility] [place] [phone] Yosi Bustamante MD [address] [place] [address] of Endocrinology [place], [place] [phone] Refill Request Social History Tobacco Use Types [...] Coronavirus/COVID-19? No / Unsure 06/25/2022 10:01 AM SAFETY RELIEF VALVE TECHNICIAN documented as of this encounter Functional [...] st Contact Info) Description 07/25/2024 10:00 AM SAFETY RELIEF VALVE TECHNICIAN Office Visit [facility] - Endocrinology [address] [place] [phone] Yosi Bustamante MD [address] [place] [address] 2L [place] [address] 07/26/2024 10:00 AM SAFETY RELIEF VALVE TECHNICIAN Appointment [facility] DIAGNOSTIC RAD [address] [place] [address] Neri Delgado MD [address] [place] [address] 07/26/2024 10:00 AM SAFETY RELIEF VALVE TECHNICIAN Office Visit [facility] - ENT [address] [place] [phone] Myra Farmer, GOLF STARTER AND RANGER [address] [place] [address] 2L [place] [address] 07/26/2024 11:15 AM SAFETY RELIEF VALVE TECHNICIAN Office Visit [facility] - ENT [address] [place] [phone] Neri Delgado MD [address] [place] [address] 08/02/2024 2:20 PM SAFETY RELIEF VALVE TECHNICIAN Appointment [facility]ENTER [address] [place] [address] 08/02/2024 3:00 PM SAFETY RELIEF VALVE TECHNICIAN Office Visit [facility] - Hematology/Oncology [address] [place] [phone] Remi Beckett MD [address] [place] [phone] 08/18/2024 1:45 PM SAFETY RELIEF VALVE TECHNICIAN Office Visit [facility] Physician Group - ENT [address] [place] [address] Neri Delgado MD [facility] [place] [address] documented as of this encounter Visit Diagnoses Diagnosis Postoperative hypothyroidism Postsurgical hypothyroidism documented in this encounter Care Teams Machine Plate Stacker Relationship Specialty [place] [address] [place] [phone] PCP - General Internal Medicine 06/10/22 07/14/22 Adriana Adams DO [address] [place] [phone] Resident - PCP Internal Medicine 04/06/22 01/12/23 documented as of this encounter
--- OUTSIDE RECORDS SUMMARY | 2024-07-23 07:13 | XMS_ITS | Encounter Summary ---
Author Organization [facility] Health Address [address] [facility] [place] [address] Care Team Providers Care Wind Turbine Performance Engineer Name Role Phone Adriana Adams DO Unavailable Taniya Grimes MD Primary Care Provider Reason for Referral * Radiology Services (Routine) - Closed Specialty Diagnoses / Procedures Referred By Contac t Referred To Contact Nuclear Medicine Diagnoses Postoperative hypothyroidism Thyroid cancer (HCC) Hypocalcemia Other hypoparathyroidism (HCC) Procedures NM TUMOR LOCAL SPECT CT Yosi Bustamante MD [address] [place] [address] 2[address] [place] [address] [facility] Nuclear Medicine [address] [place] [phone] Referral ID Status Reason Start Date Expiration Date Visits Re quested Visits Authorized [id number] Closed 08/19/2022 08/19/2023 1 1 NE CONTENT COORDINATOR Reason for Visit * Radiology Services (Routine) - Closed Specialty Diagnoses / Procedures Referred By Contac t Referred To Contact Nuclear Medicine Diagnoses Postoperative hypothyroidism Thyroid cancer (HCC) Hypocalcemia Other hypoparathyroidism (HCC) Procedures NM THYROID WHOLE BODY SCAN Yosi Bustamante MD [address] [facility] 2L [place] [address] Referral ID Status Reason Start Date Expiration Date Visits Re quested Visits Authorized [id number] Closed 08/24/2022 08/24/2023 1 1 Encounter Details Date Type Department Care Team (Latest Contact Info) Description 08/19/2022 1:26 PM ONLINE CONTENT COORDINATOR - 08/19/2022 11:59 PM [facility] Hospital Encounter [facility] NUCLEAR MEDICINE [address] [place] [address] Yosi Bustamante MD [address] [place] [address] Discharge Disposition: Home or Self Care Social [...] A DAY 60 capsule 11 02/22/2022 05/28/2023 [id number] PO Take by mouth once daily 06/13/2023 [...] fluticasone propionate (FLONASE) 50 MCG/ACT nasal spray [place] 2 (two) sprays into each nostril once daily 48 g 10/20/2021 11/25/2022 gabapentin (Neurontin) 300 MG capsuleIndications:Prima ry osteoarthritis of left hip Take 1 (one) capsule by mouth 3 times daily 90 capsule 5 04/06/2022 11/19/2022 [id number]-H YAL PO Take 1 tablet by mouth [...] six day supply. 21 tablet 04/10/2022 09/14/2022 [employer] (NEURIVA PO) Take 2 capsules [...] st Contact Info) Description 07/25/2024 10:00 AM ONLINE CONTENT COORDINATOR Office Visit [facility] Physician Group - Endocrinology [address] [place] [address], [place] [address] Yosi Bustamante MD [address] [place] [address] [place] [address] 07/26/2024 10:00 AM ONLINE CONTENT COORDINATOR Appointment [facility] DIAGNOSTIC RAD [address] [place] [address] Neri Delgado MD [address] [place] [address] 07/26/2024 10:00 AM ONLINE CONTENT COORDINATOR Office Visit [facility] - ENT [address] [place] [phone] Myra Farmer, CRYPTOLOGIC SUPPORT SPECIALIST [address] [place] [address] [place] [phone] 07/26/2024 11:15 AM ONLINE CONTENT COORDINATOR Office Visit [facility] Physician Group - ENT [address] [place] [phone] Neri Delgado MD [address] [place] [address] 08/02/2024 2:20 PM ONLINE CONTENT COORDINATOR Appointment [facility] [address] [place] [address] 08/02/2024 3:00 PM ONLINE CONTENT COORDINATOR Office Visit [facility] Physician Group - Hematology/Oncology [address] [place] [phone] Remi Beckett MD [address] [place] [phone] 08/18/2024 1:45 PM ONLINE CONTENT COORDINATOR Office Visit [facility] - ENT [address] [place] [phone] Neri Delgado MD [address] [place] [address] documented as of this encounter Procedures Procedure Name Priority Date/Time Associated Diagnosis Comments NM THYROID WHOLE BODY SCAN Routine 08/19/2022 3:24 PM ONLINE CONTENT COORDINATOR Postoperative hypothyroidism Thyroid cancer (HCC) Hypocalcemia Other hypoparathyroidism (CMS/HCC) NM TUMOR LOCAL SPECT CT Routine 08/19/2022 3:24 PM ONLINE CONTENT COORDINATOR Postoperative hypothyroidism Thyroid cancer (HCC) Hypocalcemia Other hypoparathyroidism (CMS/HCC) documented in this encounter Results * NM TUMOR LOCAL SPECT CT (08/19/2022 3:24 PM ONLINE CONTENT COORDINATOR) Anatomical Region Laterality Modality Nuclear Medicine 08/19/2022 3:55 PM ONLINE CONTENT COORDINATOR Impressions 08/19/2022 4:38 PM ONLINE CONTENT COORDINATOR Impression: Focal uptake in anteriorly in the left aspect of the mid cervical spine, suggestive of metastatic disease. Further evaluation with MRI cervical spine is recommended to better evaluate the site of the recurrence and the proximity to the spinal cord. Results discussed with Dr. Bustamante by Dr. Sy on 08/19/2022 at 3:35 PM. > Dictated by Donald Mayer MD (Production Zone Leader) 08/19/2022 4:15 PM Tiesha Mckeon DO have personally reviewed and interpreted this examination/study. > Interpreting Provider: Tiesha Sy DO on 08/19/2022 4:38 PM Narrative 08/19/2022 4:38 PM ONLINE CONTENT COORDINATOR PROCEDURE: ??NM THYROID WHOLE BODY SCAN, NM TUMOR LOCAL SPECT CT, DATE/TIME OF EXAM: ??08/19/2022 3:24 PM, LOCATION ??[facility] INDICATION: E89.0: Postoperative hypothyroidism C73: Thyroid [...] CT,DATE/TIME OF EXAM: 08/19/2022 3:24 PM, LOCATION [facility] INDICATION: E89.0: Postoperative hypothyroidism C73: Thyroid [...] PM. > Dictated by Donald Mayer MD (Production Zone Leader) 08/19/2022 4:15 PM I, Tiesha Sy DO have personally reviewed [...] (HCC) documented in this encounter Care Teams Wind Turbine Performance Engineer Relationship Specialty Start Date End Date Taniya Grimes MD [address] [place] [address] PCP - General 07/15/22 10/06/22 Adriana Adams DO [address] [place] [address] Resident - PCP Internal Medicine 04/06/22 01/12/23 documented as of this encounter
--- OUTSIDE RECORDS SUMMARY | 2024-07-23 07:13 | XMS_ITS | Encounter Summary ---
Author Organization [facility] Address [address] [facility] [place] [address] Care Team Providers Care Microphone Operator Name Role Phone Adriana Adams DO Unavailable Joseph Manzanares MD Primary Care Provider [phone] Encounter Details Date Type Department Care Team (Late st Contact Info) Description 06/16/2022 Orders Only [facility] Pediatrics - Orthopedics [address] [address] Mary Beth Lauren MD [address] [facility] [address] [place] [address] Social History Tobacco Use Types Packs/Day Years [...] st Contact Info) Description 07/25/2024 10:00 AM AUTOMOBILE DAMAGE APPRAISER Office Visit [facility] Physician Group - Endocrinology [address] [place] [phone] Yosi Bustamante MD [address] [place] [address] 2L Div [place] [address] 07/26/2024 10:00 AM AUTOMOBILE DAMAGE APPRAISER Appointment [facility] DIAGNOSTIC RAD [address] [place] [address] Neri Delgado MD [address] [place] [address] 07/26/2024 10:00 AM AUTOMOBILE DAMAGE APPRAISER [facility] [address] [place] [phone] Myra Farmer, RADIOLOGICAL DEFENSE OFFICER [address] [place] [address] 2L [place] [phone] 07/26/2024 11:15 AM AUTOMOBILE DAMAGE APPRAISER [facility] [address] [place] [phone] Neri Delgado MD [address] [place] [address] 08/02/2024 2:20 PM AUTOMOBILE DAMAGE APPRAISER Appointment [facility] [address] [place] [address] 08/02/2024 3:00 PM AUTOMOBILE DAMAGE APPRAISER Office Visit [facility] Physician Group - Hematology/Oncology [address] [place] [phone] Remi Beckett MD [address] [place] [phone] 08/18/2024 1:45 PM AUTOMOBILE DAMAGE APPRAISER Office Visit [facility] - ENT [address] [place] [address] Neri Delgado MD [address] [place] [address] documented as of this encounter Visit Diagnoses Not on filedocumented in this encounter Care Teams Microphone Operator Relationship Specialty Start Date End Date Joseph Manzanares MD [address] [place] [phone] PCP - General Internal Medicine 06/10/22 07/14/22 Adriana Adams DO [address] [place] [phone] Resident - PCP Internal Medicine 04/06/22 01/12/23 documented as of this encounter
--- OUTSIDE RECORDS SUMMARY | 2024-07-23 07:13 | XMS_ITS | Encounter Summary ---
Author Organization [facility] Address [address] [facility] [address] [place] [address] Care Team Providers Care Accounts Payable Professional Name Role Phone Adriana Adams DO Unavailable Joseph Manzanares MD Primary Care Provider Taniya Grimes MD Primary Care Provider Reason for Visit * Reason Onset Date Comments Question 06/17/2022 Encounter Details Date Type Department Care Team (Late st Contact Info) Description 06/17/2022 Telephone [facility] Diabetes [facility] Metabolism [address] [place] [address], [facility] [place] [phone] Yosi Bustamante MD [address] [place] [address] [place] [address] Question Social History Tobacco Use Types Packs/Day [...] Coronavirus/COVID-19? No / Unsure 06/25/2022 10:01 AM CONCRETE PUDDLER documented as of this encounter Functional Status [...] encounter Miscellaneous Notes * Telephone Encounter - Kassie Rand RN - 06/17/2022 4:19 PM CONCRETE PUDDLER Pt called and reported she has a torn rotator cuff. Pt would like to have her shoulder surgery before thyroid treatment. Pt is wondering if she could postpone treatment? Please advise. RETE PUDDLER documented in this encounter Plan of Treatment Upcoming Encounters Date Type Department Care Team (Late st Contact Info) Description 07/25/2024 10:00 AM CONCRETE PUDDLER Office Visit [facility] - Endocrinology [address] [place] [phone] Yosi Bustamante MD [address] [place] [address] 2L [place] [address] 07/26/2024 10:00 AM CONCRETE PUDDLER Appointment [facility] [address] [place] [phone] Neri Delgado MD [address] [place] [phone] 07/26/2024 10:00 AM CONCRETE PUDDLER Office Visit [facility] - ENT [address] [place] [phone] Myra Farmer, CLIENT SERVICES COORDINATOR [address] [place] [address] 2L [place] [phone] 07/26/2024 11:15 AM CONCRETE PUDDLER Office [facility] [address] [place] [phone] Neri Delgado MD [address] [place] [phone] 08/02/2024 2:20 PM CONCRETE PUDDLER Appointment [facility] [address] [place] [phone] 08/02/2024 3:00 PM CONCRETE PUDDLER Office Visit [facility] - Hematology/Oncology [address] [place] [phone] Remi Beckett MD [address] [place] [phone] 08/18/2024 1:45 PM CONCRETE PUDDLER Office [facility] [address] [place] [address] [phone] Neri Delgado MD [address] [place] [phone] documented as of this encounter Visit Diagnoses Not on filedocumented in this encounter Care Teams Accounts Payable Professional Relationship Specialty Start Date End Date Joseph Manzanares MD [address] [place] [phone] PCP - General Internal Medicine 06/10/22 07/14/22 Taniya Grimes MD [address] [place] [address] [place] [phone] PCP - General 07/15/22 10/06/22 Adriana Adams DO [address] [place] [phone] Resident - PCP Internal Medicine 04/06/22 01/12/23 documented as of this encounter
--- OUTSIDE RECORDS SUMMARY | 2024-07-23 07:13 | XMS_ITS | Encounter Summary ---
Author Organization [facility] Address [address] [place] [address] Care Team Providers Care Color Coater Name Role Phone Adriana Adams DO Unavailable Joseph Manzanares MD Primary Care Provider Reason for Referral * Radiology Services (Routine) - Closed Specialty Diagnoses / Procedures Referred By Contac t Referred To Contact Nuclear Medicine Diagnoses Postoperative hypothyroidism Thyroid cancer (HCC) Hypocalcemia Other hypoparathyroidism (HCC) Procedures NM THYROID WHOLE BODY SCAN Yosi Bustamante MD [address] [place] [address] [address] [place] [address] Referral ID Status Reason Start Date Expiration Date Visits Re quested Visits Authorized [id number] Closed 08/24/2022 08/24/2023 1 1 GER MED SURG Reason for Visit * Reason Comments Thyroid Problem THYROID CANCER HYPOT HYROIDISM S/P THYROIDECTOMY Encounter Details Date Type Department Care Team (Latest Contact Info) Description 07/02/2022 10:00 AM MANAGER MED SURG Office Visit [facility] [address] [place] [address], [place] [id number] Yosi Bustamante MD [address] [place] [address] [address] [place] [address] Postoperative hypothyroidism (Primary Dx); Thyroid cancer (HCC); [...] Coronavirus/COVID-19? No / Unsure 06/25/2022 10:01 AM MANAGER MED SURG documented as of this encounter Last Filed Vital Signs Vital Sign Reading Time Taken Comments Blood Pressure 122/82 07/02/2022 10:31 AM MANAGER MED SURG Pulse 104 07/02/2022 10:31 AM MANAGER MED SURG Temperature 37 ??C (98.6 ??F) 07/02/2022 10:31 AM MANAGER MED SURG Respiratory Rate 18 07/02/2022 10:31 AM MANAGER MED SURG Oxygen Saturation 98% 07/02/2022 10:31 AM MANAGER MED SURG Inhaled Oxygen Concentration - - Weight 70.3 kg (155 lb) 07/02/2022 10:31 AM MANAGER MED SURG Height 157.5 cm (5' 2) 07/02/2022 10:31 AM MANAGER MED SURG Body Mass Index 28.35 07/02/2022 10:31 AM MANAGER MED SURG documented in this encounter Functional Status Functional [...] * Patient Instructions* Yosi Bustamante MD - 07/02/2022 10:31 AM MANAGER MED SURG If you have an Insulin Pump, Meter or a Continuous Glucose Monitor, please BRING IT TO EVERY VISIT and present it to the Endo rooming staff when you arrive in clinic. APPOINTMENTS: option 1 or you can send a [employer] message. Normal business hours are from 8:00 am to 4:30 pm Wednesday through Wednesday. Fax# is [phone]. REFILL REQUESTS: contact your pharmacy who will reach out to us. If you have changes to your prescription, you will need to contact us directly at [phone] and select option 3 or send your [employer] message. We request that all prescription refills be requested during regular office phone hours. If your prescription requires a prior authorization, it may take several days for us to get approval from [employer] company before we can refill your prescription. Please do not wait until you are completely out before contacting us. MEDICAL EMERGENCY: Please call 911 or go to the nearest Emergency Room. After hours urgent calls that cannot wait until phone lines are open on the next business day are given to the [employer] physician seasoner. Please call [phone] and identify yourself as a patient in our practice needing to speak to [employer] Pre [employer]er. The barber shop operator will contact the physician seasoner. You can generally expect a return call within 30 minutes. On weekends, physicians are seeing hospitalized patients and there may be a longer wait. Test and laboratory results: Our practice typically reports lab and test results through letters orMyChart. Please allow 10 days from when your tests are completed to receive the results in the mail. Labs performed outside of [facility] facility, [facility] or [facility] may delay the results getting to us. Please contact the lab and request that they are faxed to us at [phone]. IF GOING TO [facility] or [facility]- TAKE LAB ORDER WITH YOU or they may turn you away [facility]'s missed appointment policy is: Patients with 3 consecutively missed appointments OR 3 missed appointments in a 12 month period will no longer be seen by Endocrinology. They will be asked to seek consultation outside of [facility]. A missed appointment is defined as: Arriving to a scheduled appointment too late to be seen (Patients who arrive to clinic later than their scheduled appointment time may not be seen) Not showing up or calling 24-48 hours prior to an appointment An appointment cancelled less than 24 hours in advance ADDRESS: [address] [place] [address] Website: [email or web address] for additional information about [facility] and an interactive health encyclopedia. BP 122/82 (BP SITE: RIGHT ARM, BP POSITION: SITTING, BP CUFF SIZE: 11) Pulse 104 Temp 98.6 ??F (37 ??C) (Oral) Resp 18 Ht 1.575 m (5' 2) Wt 70.3 kg (155 lb) SpO2 98% PLAN THYROID/NECK ULTRASOUND TODAY Instructions for taking [...] RADIOACTIVE IODINE TREATMENT AFTER THYROID HORMONE WITHDRAWAL Wednesday07/04/2022 LAST DOSE OF LEVOTHYROXINE Wednesday07/05/2022 START CYTOMEL (LIOTHYRONINE OR T3) 25 MCG TWICE A DAY Wednesday07/25/2022 LAST DOSES OF CYTOMEL FROM Wednesday07/26/2022 TO 08/22/2022 NO THYROID MEDICATIONS FROM Wednesday08/05/2022 TO 08/23/2022 LOW IODINE DIET LAB 2022 TSH AND TG LAB 08/07/2022 TSH AND TG LAB 08/14/2022 TSH AND TG LAB 08/21/2022 TSH AND TG LAB 10/16/2022 TSH AND TG 08/17/2022 NUC MED FOR TRACER DOSE OF RADIOACTIVE IODINE TO DO WHOLE BODY SCAN 08/19/2022 NUC MED FOR WHOLE BODY SCAN 08/19/2022 NUC MED FOR TREATMENT DOSE OF RADIOACTIVE IODINE (THIS DOSE WILL REQUIRE ISOLATION , USUALLY AT HOME 08/25/2022 NUC MED FOR POST TREATMENT WHOLE BODY SCAN 08/23/2022 RESTART LEVOTHYROXINE AND STOP LOW IODINE DIET LOW-IODINE DIET GUIDELINES - SUMMARY ThyCa: Thyroid Cancer Survivors??? Association, Inc. For details, and our free downloadable Low-Iodine Cookbook, visit [email or web address] [place] This is a Low-Iodine Diet, NOT a No-Iodine Diet or an Iodine-Free Diet. The diet is for a short time period, usually for the 2 weeks (14 days) before a radioactive iodine scan or radioactive iodine treatment. Avoid foods high in iodine (over 20mcg per serving). Eat any foods low in iodine (up to 5mcg per serving). Limit the quantity of foods moderate in iodine (5 to 20 mcg per serving). Read the ingredient lists on the labels of packaged foods. Check with your physician about medications you are taking. Not Allowed - Avoid These Foods and Ingredients Iodized salt, sea salt, and any foods containing iodized salt and sea salt. Seafood and sea products (fish, shellfish, seaweed, seaweed tablets, carrageenan, agar-agar, alginate, vinicio and other sea-based foods or ingredients). Daily products of any kind (milk, cheese, yogurt, butter, ice cream). Egg yolks or whole eggs or foods containing whole eggs. Bakery products containing iodine/iodate dough conditioners or high-iodine ingredients. Low-iodine homemade and commercial baked goods are fine. Red Dye #3. Most chocolate (due to milk content). Goehner powder and some dark chocolates are allowed. Some molasses (if sulfured, such as blackstrap molasses). Unsulfured molasses, which is more common, is okay. Sulfur is a term used on labels and does not relate to iodine. Soybeans and soybean products such as tofu, TVP, soy milk, soysauce. The NIH diet says to avoid some other beans: red kidney beans, cano beans, navy beans, crain beans, and cowpeas. On some diets, rhubarb and potato skins (inside of the potato is fine). Iodine-containing vitamins and food supplements. If you???re taking a medication containing iodine, check with your physician. Allowed Foods and Ingredients Fruits except rhubarb and maraschino cherries (with Red Dye #3). Vegetables: preferably raw or frozen without salt, except soybeans and (according to NIH diet) a few other beans. Unsalted nuts and unsalted nut butters. Whites of eggs. Fresh meats up to 6 ounces a day. Grain and cereal products up to 4 servings per day, provided they have no high- iodine ingredients. Pasta, provided it has no high-iodine ingredients. Sugar, jelly, jam, honey, maple syrup. Black pepper, fresh or dried herbs and spices. Oils, All vegetable oils, including soy oil. Sodas (except with Red Dye #3), cola, diet cola, non-instant coffee, non-instant tea, beer, wine, other alcoholic beverages, lemonade, fruit juices. Read the ingredient list on all packaged foods. Easy Snacks for Home, Work, or Travel Fresh fruit or juice Dried fruits such as raisins Fresh raw vegetables Applesauce Popcorn Unsalted nuts Sodas other than those with Red Dye #3 Fruit juice Unsalted peanut butter or other nut butters (great with apple slices, carrot sticks, crackers, and rice cakes) Unsalted Matzo crackers and other unsalted crackers Homemade low-iodine bread or muffins Easy Quick Meals Oatmeal toppings-cinnamon, honey applesauce, maple syrup and walnuts, fruit Grilled fresh meat, vegetables, fresh fruit or baked apple Salad topped with grilled chicken or beef, oil and vinegar dressing [place] with Matzo crackers, plain peanut butter, jelly GER MED SURG documented in this encounter Progress Notes * Yosi Bustamante MD - 07/02/2022 10:00 AM CST HISTORY / PROGRESS NOTE Date: 07/02/2022 Chief Complaint or Purpose for Referral: THYROID CANCER HYPOTHYROIDISM S/P THYROIDECTOMY History of Present Illness: 61 YEAR OLD WHITE FEMALE ELE 03/17/2022 No dysphagia No dyspnea No dysphonia No change size of neck neck pain or discomfort(+) No nervousness No shakiness No palpitations Weight stable since last visit Wt Readings from Last 3 Encounters: 07/02/22 70.3 kg (155 lb) 06/10/22 71.7 kg (158 lb) 03/17/22 71.8 kg (158 lb 3.2 oz) BM daily No diarrhea No constipation nocturia 0-1 per night No edema No proximal muscle weakness DECREASED FUNCTION OF LEFT ARM CAN NOT USE LEFT ARM HAS HAD CORTISOL SHOT IN ARM FELL AGAINST WALL AFTER SHOT AND NOW HAS NO USE OF LEFT ARM AND HAND SURGERY NEEDED ALSO HAS HIP PROBLEM WALKS WITH WALKER AND /OR CANE HAS DENTIST APPT TODAY TO GET APPROVAL FOR SURGERY PRIMARY CARE HAS ALREADY OKED SURGERY LAB Latest Reference Range & Units 10/08/21 16:37 10/24/21 15:04 12/08/21 09:12 03/19/22 12:31 05/01/22 13:17 TSH 0.350 - 4.940 uIU/mL <0.010 (L) <0.010 (L) <0.010 (L) 0.261 (L) 0.769 T4 Free 0.7 - 1.5 ng/dL 1.1 1.4 1.2 1.1 Thyroglobulin by ANTONIETA 1.5 - 38.5 ng/mL 17.9 26.9 71.9 (H) 151.8 (H) Thyroglobulin Antibody 0.0 - 0.9 IU/mL <1.0 <1.0 <1.0 <1.0 [facility] Reference Range & Units 08/21/20 04:25 09/11/20 14:13 11/11/20 15:49 02/14/21 12:30 03/17/21 10:32 03/19/21 11:20 03/21/21 10:47 TSH 0.350 - 4.940 uIU/mL 2.526 0.900 0.028 (L) <0.010 (L) 139.797 (H) T4 Free 0.7 - 1.5 ng/dL 1.1 1.4 1.5 1.4 Thyroglobulin by ANTONIETA 1.5 - 38.5 ng/mL 192.2 (H) 0.9 (L) 1.9 1.7 7.9 8.4 Thyroglobulin Antibody 0.0 - 0.9 IU/mL <1.0 <1.0 <1.0 <1.0 <1.0 <1.0 (Brief 1-3; Ext. >4) Past Medical History: [...] History: No date: Bilateral Tubal Ligation (BTL) No date: Section No date: ENDOSCOPY, COLON, [...] cervical Review of patient's family history indicates: Social History Socioeconomic History Marital status: Spouse name: Not on file Number of children: Not on file Years of education: Not on file Highest education level: Not on file Occupational History Not on file Tobacco Use Smoking status: Heavy Smoker Packs/day: 0.50 Years: 40.00 Pack years: 20 Types: Cigarettes Start date: 07/22/1973 Smokeless tobacco: Never Vaping Use Vaping Use: Never used Substance and Sexual Activity Alcohol use: No Drug use: Not Currently Types: Marijuana Comment: marijuana A FEW PUFFS DAILY for pain Sexual activity: Yes Partners: Male Other Topics [...] Social Determinants of Health Financial Resource Strain: Not on file Food Insecurity: Not on file Transportation Needs: Not on file Physical Activity: Not on file Stress: Not on file Social Connections: Not on file Intimate Partner Violence: Not on file Housing Stability: Not on file Current Outpatient Medications: acetaminophen (Tylenol) 500 MG tablet, Take 2 (two) tablets by mouth every 6 hours as needed for Fever or Pain Maximum allowable Acetaminophen amount = 4 Grams (4000 mg) / 24 hours., Disp: , Rfl: 0 acetaminophen (TYLENOL) 500 MG tablet, Take 1,000 mg by mouth every 6 hours as needed, Disp: , Rfl: atorvastatin (Lipitor) 40 MG tablet, TAKE 1 TABLET BY MOUTH EVERYDAY AT BEDTIME, Disp: 30 tablet, Rfl: 3 atorvastatin (Lipitor) 40 MG tablet, TAKE 1 TABLET BY MOUTH EVERYDAY AT BEDTIME, Disp: 30 tablet, Rfl: 3 B Complex Vitamins (B COMPLEX 1 PO), Take by mouth once daily, Disp: , Rfl: calcitriol (Rocaltrol) 0.5 MCG capsule, TAKE 1 CAPSULE BY MOUTH TWICE A DAY, Disp: 60 capsule, Rfl:11 [id number] PO, Take by mouth once daily, Disp: , Rfl: celecoxib (CELEBREX) 200 MG capsule, Take 1 (one) capsule by mouth once daily, Disp: 90 capsule, Rfl: 3 cetirizine (ZYRTEC) 10 MG tablet, Take 1 (one) tablet by mouth once daily, Disp: 30 tablet, Rfl: 5 clonazePAM (KLONOPIN) 0.5 MG tablet, Take 1.5 (one and one-half) tablets by mouth once daily, Disp:, Rfl: famotidine (PEPCID) 20 MG tablet, Take 20 mg by mouth 2 times daily as needed, Disp: , Rfl: fish oil/omega-3 fatty acids (PROMEGA;CARDI-OMEGA 3) 1000 MG capsule, Take 1,000 mg by mouth 3 times daily with meals, Disp: , Rfl: fluticasone propionate (FLONASE) 50 MCG/ACT nasal spray, [place] 2 (two) sprays into each nostril once daily, Disp: 48 g, Rfl: 0 gabapentin (Neurontin) 300 MG capsule, Take 1 (one) capsule by mouth 3 times daily, Disp: 90 capsule, Rfl: 5 [id number] PO, Take 1 tablet by mouth 3 times daily, Disp: , Rfl: levothyroxine (SYNTHROID) 112 MCG tablet, Take 1 (one) tablet by mouth once daily, Disp: 90 tablet,Rfl: 4 liothyronine (Cytomel) 25 MCG tablet, Take 1 (one) tablet by mouth 2 times daily for 20 days Start 06/21/22 and end 07/11/22 as substitute for levothyroxine for three weeks Reasons: Cancer of Thyroid, Underactive Thyroid, Disp: 40 tablet, Rfl: 0 methylPREDNISolone (Medrol Dosepak) 4 MG tablet, Take by mouth as directed Follow package insert dosing for six day supply., Disp: 21 tablet, Rfl: 0 Misc Natural Products (NEURIVA PO), Take 2 capsules by mouth every morning, Disp: , Rfl: nicotine (NICODERM CQ) 14 MG/24HR patch, Apply 1 (one) patch to skin once daily, Disp: 30 patch, Rfl: 6 oxybutynin CR 24hr (Ditropan-XL) 5 MG tablet, Take 1 (one) tablet by mouth once daily, Disp: 90 tablet, Rfl: 4 pantoprazole EC (Protonix) 40 MG tablet, TAKE ONE TABLET BY MOUTH ONCE DAILY FOR STOMACH, Disp: 90 tablet, Rfl: 0 PARoxetine (PAXIL) 40 MG tablet, Take 40 mg by mouth once daily, Disp: , Rfl: 2 thyrotropin tayo (THYROGEN) injection, Inject 0.9 mg into muscle every 24 hours for 2 doses Reasons: Cancer of Thyroid, Disp: 2 mL, Rfl: 0 traZODone (DESYREL) 50 MG tablet, Take 50 mg by mouth at bedtime, Disp: , Rfl: vitamin E (TOCOPHERYL) 200 UNIT capsule, Take 200 Units by mouth 3 times daily, Disp: , Rfl: No current facility-administered medications for this visit. -- Kiwi Extract -- Anaphylaxis -- Shellfish Allergy -- Other -- Passed out after eating lobster but can eat shrimp and crab Physical Exam: Constitutional: Vital Signs: BP 122/82 (BP SITE: RIGHT ARM, BP POSITION: SITTING, BP CUFF SIZE: 11) Pulse 104 Temp 98.6 ??F (37 ??C) (Oral) Resp 18 Ht 1.575 m (5' 2) Wt 70.3 kg (155 lb) SpO2 98% Well developed, well nourished, white female, no acute distress, alert and oriented, normocephalic Appearance: WNL Eyes: Conjunctiva/lids WNL and EOM Intact ENT, Mouth: Hearing WNL and External ear/nose WNL Neck: No masses, symmetrical and Thyroid not enlarged Resp.:[place] nonlabored Lymph: Neck WNL MS: Station and gait WNL and Stable without dislocation, laxity Areas Assessed: Head/neck, R/L upper extremities, Digits/nails and Inspection/palpatation of above WNL Skin: No rashes/lesions/ulcers and SKIN NORMAL TEXTURE AND TURGOR Neuro: Cranial nerves intact and DTR WNL Psych: Oriented X 3 and Mood/affect WNL Accuchecks: NOT APPLICABLE Assessment: [...] Urinary incontinence Chronic pain after cancer treatment PLAN THYROID/NECK ULTRASOUND TODAY Instructions for taking [...] RADIOACTIVE IODINE TREATMENT AFTER THYROID HORMONE WITHDRAWAL Wednesday07/04/2022 LAST DOSE OF LEVOTHYROXINE Wednesday07/05/2022 START CYTOMEL (LIOTHYRONINE OR T3) 25 MCG TWICE A DAY Wednesday07/25/2022 LAST DOSES OF CYTOMEL FROM Wednesday07/26/2022 TO 08/22/2022 NO THYROID MEDICATIONS FROM Wednesday08/05/2022 TO 08/23/2022 LOW IODINE DIET LAB 2022 TSH AND TG LAB 08/07/2022 TSH AND TG LAB 08/14/2022 TSH AND TG LAB 08/21/2022 TSH AND TG LAB 10/16/2022 TSH AND TG 08/17/2022 NUC MED FOR TRACER DOSE OF RADIOACTIVE IODINE TO DO WHOLE BODY SCAN 08/19/2022 NUC MED FOR WHOLE BODY SCAN 08/19/2022 NUC MED FOR TREATMENT DOSE OF RADIOACTIVE IODINE (THIS DOSE WILL REQUIRE ISOLATION , USUALLY AT HOME 08/25/2022 NUC MED FOR POST TREATMENT WHOLE BODY SCAN 08/23/2022 RESTART LEVOTHYROXINE AND STOP LOW IODINE DIET LOW-IODINE DIET GUIDELINES - SUMMARY ThyCa: Thyroid Cancer Survivors??? Association, Inc. For details, and our free downloadable Low-Iodine Cookbook, visit [email or web address] [place] This is a Low-Iodine Diet, NOT a No-Iodine Diet or an Iodine-Free Diet. The diet is for a short time period, usually for the 2 weeks (14 days) before a radioactive iodine scan or radioactive iodine treatment. Avoid foods high in iodine (over 20mcg per serving). Eat any foods low in iodine (up to 5mcg per serving). Limit the quantity of foods moderate in iodine (5 to 20 mcg per serving). Read the ingredient lists on the labels of packaged foods. Check with your physician about medications you [...] whole eggs or foods containing whole eggs. ?? Bakery products containing iodine/iodate dough conditioners or high-iodine ingredients. Low-iodine homemade and commercial baked goods are fine. ?? Red Dye #3. ?? Most chocolate (due to milk content). Goehner powder and some dark chocolates are allowed. ?? Some molasses (if sulfured, such as blackstrap molasses). Unsulfured molasses, which is more common, is okay. Sulfur is a term used on labels and does not relate to iodine. ?? Soybeans and soybean products such as tofu, TVP, soy milk, soysauce. The NIH diet says to avoid some other beans: red kidney beans, cano beans, navy beans, crain beans, and cowpeas. ?? On some diets, rhubarb and potato skins (inside of the potato is fine). ?? Iodine-containing vitamins and food supplements. ?? If you???re taking a medication containing iodine, check with your physician. Allowed Foods and Ingredients ?? Fruits except rhubarb and maraschino cherries (with Red Dye #3). ?? Vegetables: preferably raw or frozen without salt, except soybeans and (according to NIH diet) afew other beans. ?? Unsalted nuts and unsalted [...] Dye #3), cola, diet cola, non-instant coffee, non- instant tea, beer, wine, other alcoholic beverages, lemonade, [...] chicken or beef, oil and vinegar dressing [place] with Matzo crackers, plain peanut butter, jelly Postoperative hypothyroidism - Plan: PROC ULTRASOUND THYROID W/WO FNA BIOPSY, liothyronine (Cytomel) 25 MCG tablet, NM THYROID WHOLE BODY SCAN, NM THYROID THERAPY, NM THYROID WHOLE BODY SCAN, TSH, THYROGLOBULIN REFLEX PROFILE Thyroid cancer (CMS/HCC) - Plan: PROC ULTRASOUND THYROID W/WO FNA BIOPSY, liothyronine (Cytomel) 25MCG tablet, NM THYROID WHOLE BODY SCAN, NM THYROID THERAPY, NM THYROID WHOLE BODY SCAN, TSH, THYROGLOBULIN REFLEX PROFILE Hypocalcemia - Plan: PROC ULTRASOUND THYROID W/WO FNA BIOPSY, liothyronine (Cytomel) 25 MCG tablet,NM THYROID WHOLE BODY SCAN, NM THYROID THERAPY, NM THYROID WHOLE BODY SCAN, TSH, THYROGLOBULIN REFLEX PROFILE Other hypoparathyroidism (CMS/HCC) - Plan: PROC ULTRASOUND THYROID W/WO FNA BIOPSY, liothyronine (Cytomel) 25 MCG tablet, NM THYROID WHOLE BODY SCAN, NM THYROID THERAPY, NM THYROID WHOLE BODY SCAN, TSH, THYROGLOBULIN REFLEX PROFILE Yosi Bustamante MD Professor of Internal Medicine Division of Endocrinology Department of Internal Medicine GER MED SURG documented in this encounter Procedure Notes * Yosi Bustamante MD - 07/02/2022 11:41 AM CSTAssociated Order(s): PROC ULTRASOUND THYROID W/WO FNA BIOPSY Procedure(s): [place] US SOFT TISS HEAD&NCK R-T IMG Pre-Procedure Diagnose(s): Postoperative hypothyroidism; Thyroid cancer (HCC); Hypocalcemia; Other hypoparathyroidism (HCC) Ultrasound Of Thyroid Ultrasound of the Thyroid PHYSICIAN Yosi Bustamante MD FELLOW NONE Test Date: 07/02/2022 Test Indication: Patient Active Problem List: Psychophysiologic [...] Urinary incontinence Chronic pain after cancer treatment Referring Physician: Dr. Joseph Manzanares MD Procedure Preformed: Ultrasound Only Nodule Size: THYROID GLAND SURGICALLY ABSENT LYMPH NODES IDENTIFIED RIGHT NECK LEVEL 1B 0.78 X 0.44 CM WITH HILAR LINE LEFT NECK LEVEL IIA 0.68 X 0.36 CM LEVEL III 0.57 X 0.36 CM Echogenicity: NORMAL NECK [...] RADIOACTIVE IODINE TREATMENT AFTER THYROID HORMONE WITHDRAWAL Wednesday07/04/2022 LAST DOSE OF LEVOTHYROXINE Wednesday07/05/2022 START CYTOMEL (LIOTHYRONINE OR T3) 25 MCG TWICE A DAY Wednesday07/25/2022 LAST DOSES OF CYTOMEL FROM Wednesday07/26/2022 TO 08/22/2022 NO THYROID MEDICATIONS FROM Wednesday08/05/2022 TO 08/23/2022 LOW IODINE DIET LAB 2022 TSH AND TG LAB 08/07/2022 TSH AND TG LAB 08/14/2022 TSH AND TG LAB 08/21/2022 TSH AND TG LAB 10/16/2022 TSH AND TG 08/17/2022 NUC MED FOR TRACER DOSE OF RADIOACTIVE IODINE TO DO WHOLE BODY SCAN 08/19/2022 NUC MED FOR WHOLE BODY SCAN 08/19/2022 NUC MED FOR TREATMENT DOSE OF RADIOACTIVE IODINE (THIS DOSE WILL REQUIRE ISOLATION , USUALLY AT HOME 08/25/2022 NUC MED FOR POST TREATMENT WHOLE BODY SCAN 08/23/2022 RESTART LEVOTHYROXINE AND STOP LOW IODINE DIET LOW-IODINE DIET GUIDELINES - SUMMARY ThyCa: Thyroid Cancer Survivors??? Association, Inc. For details, and our free downloadable Low-Iodine Cookbook, visit www.[email or web address] [place] This is a Low-Iodine Diet, NOT a No-Iodine Diet or an Iodine-Free Diet. The diet is for a short time period, usually for the 2 weeks (14 days) before a radioactive iodine scan or radioactive iodine treatment. Avoid foods high in iodine (over 20mcg per serving). Eat any foods low in iodine (up to 5mcg per serving). Limit the quantity of foods moderate in iodine (5 to 20 mcg per serving). Read the ingredient lists on the labels of packaged foods. Check with your physician about medications you [...] whole eggs or foods containing whole eggs. ?? Bakery products containing iodine/iodate dough conditioners or high-iodine ingredients. Low-iodine homemade and commercial baked goods are fine. ?? Red Dye #3. ?? Most chocolate (due to milk content). Goehner powder and some dark chocolates are allowed. ?? Some molasses (if sulfured, such as blackstrap molasses). Unsulfured molasses, which is more common, is okay. Sulfur is a term used on labels and does not relate to iodine. ?? Soybeans and soybean products such as tofu, TVP, soy milk, soysauce. The NIH diet says to avoid some other beans: red kidney beans, cano beans, navy beans, crain beans, and cowpeas. ?? On some diets, rhubarb and potato skins (inside of the potato is fine). ?? Iodine-containing vitamins and food supplements. ?? If you???re taking a medication containing iodine, check with your physician. Allowed Foods and Ingredients ?? Fruits except rhubarb and maraschino cherries (with Red Dye #3). ?? Vegetables: preferably raw or frozen without salt, except soybeans and (according to NIH diet) afew other beans. ?? Unsalted nuts and unsalted [...] Dye #3), cola, diet cola, non-instant coffee, non- instant tea, beer, wine, other alcoholic beverages, lemonade, [...] chicken or beef, oil and vinegar dressing [place] with Matzo crackers, plain peanut butter, jelly Yosi Bustamante MD Division of Endocrinology GER MED SURG documented in this encounter Plan of Treatment Upcoming Encounters Date Type Department Care Team (Late st Contact Info) Description 07/25/2024 10:00 AM MANAGER MED SURG Office Visit [facility] - Endocrinology [address] [place] [address], [facility] [place] [address] Yosi Bustamante MD [address] [place] [address] [place] [address] 07/26/2024 10:00 AM MANAGER MED SURG Appointment [facility] [address] [place] [phone] Neri Delgado MD [address] [place] [address] 07/26/2024 10:00 AM MANAGER MED SURG Office Visit [facility] - ENT [address] [place] [phone] Myra Farmer, ALTERATIONS WORKROOM CLERK [address] [place] [address] [place] [phone] 07/26/2024 11:15 AM MANAGER MED SURG Office Visit [facility] - ENT [address] [place] [phone] Neri Delgado MD [address] [place] [address] 08/02/2024 2:20 PM MANAGER MED SURG Appointment [facility] [address] [place] [address] 08/02/2024 3:00 PM MANAGER MED SURG Office Visit [facility] - Hematology/Oncology [address] [place] [address] [phone] Remi Beckett MD [address] [place] [phone] 08/18/2024 1:45 PM MANAGER MED SURG Office Visit [facility] [address] [place] [phone] Neri Delgado MD [address] [place] [address] documented as of this encounter Procedures Procedure Name Priority Date/Time Associated Diagnosis Comments WV US SOFT TISS HEAD&NCK R-T IMG Routine 07/02/2022 11:41 AM MANAGER MED SURG Postoperative hypothyroidism Thyroid cancer (HCC) Hypocalcemia Other hypoparathyroidism (CMS/HCC) documented in this encounter Results * NM THYROID WHOLE BODY SCAN (08/19/2022 3:24 PM MANAGER MED SURG) Anatomical Region Laterality Modality Chest Nuclear Medicine 08/19/2022 3:55 PM MANAGER MED SURG Impressions 08/19/2022 4:38 PM MANAGER MED SURG Impression: Focal uptake in anteriorly in the left aspect of the mid cervical spine, suggestive of metastatic disease. Further evaluation with MRI cervical spine is recommended to better evaluate the site of the recurrence and the proximity to the spinal cord. Results discussed with Dr. Bustamante by Dr. Sy on 08/19/2022 at 3:35 PM. > Dictated by Donald Mayer MD (Motor Power Connector) 08/19/2022 4:15 PM Tiesha Mckeon DO have personally reviewed and interpreted this examination/study. > Interpreting Provider: Tiesha Sy DO on 08/19/2022 4:38 PM Narrative 08/19/2022 4:38 PM MANAGER MED SURG PROCEDURE: ??NM THYROID WHOLE BODY SCAN, NM TUMOR LOCAL SPECT CT, DATE/TIME OF EXAM: ??08/19/2022 3:24 PM, LOCATION ??[facility] INDICATION: E89.0: Postoperative hypothyroidism C73: Thyroid cancer [...] CT,DATE/TIME OF EXAM: 08/19/2022 3:24 PM, LOCATION [facility] INDICATION: E89.0: Postoperative hypothyroidism C73: Thyroid cancer [...] PM. > Dictated by Donald Mayer MD (Motor Power Connector) 08/19/2022 4:15 PM Tiesha Mckeon DO have personally reviewed and interpreted this examination/study. > Interpreting Provider: Tiesha Sy DO on 08/19/2022 4:38 PM Yosi Bustamante MD NM ORDERABLES * WV US SOFT TISS HEAD&NCK R-T IMG (07/02/2022 11:41 AM MANAGER MED SURG) Narrative Yosi Bustamante MD - 07/02/2022 11:41 AM MANAGER MED SURG Yosi Bustamante MD ? 07/02/2022 11:47 AM [...] ?? Most chocolate (due to milk content). ??Goehner powder and some dark chocolates are allowed. [...] chicken or beef, oil and vinegar dressing [place] with Matzo crackers, plain peanut butter, jelly [...] (HCC) documented in this encounter Care Teams Color Coater Relationship Specialty Start Date End Date Joseph Manzanares MD [address] [place] [phone] PCP - General Internal Medicine 06/10/22 07/14/22 Adriana Adams DO [address] [place] [phone] Resident - PCP Internal Medicine 04/06/22 01/12/23 documented as of this encounter
--- OUTSIDE RECORDS SUMMARY | 2024-07-23 07:13 | XMS_ITS | Encounter Summary ---
Author Organization [facility] Health Address [address] [facility] [place] [address] Care Team Providers Care Aids Social Worker Name Role Phone Adriana Adams DO Unavailable Joseph Manzanares MD Primary Care Provider [phone] Encounter Details Date Type Department Care Team (Late st Contact Info) Description 06/17/2022 Orders Only [facility] [address] [place] [address] Mary Beth Lauren MD [address] [facility] DO[address] [place] [phone] Rotator cuff arthropathy of left shoulder Social History Tobacco Use Types Packs/Day Years [...] st Contact Info) Description 07/25/2024 10:00 AM TANK FARM ATTENDANT Office Visit [facility] - Endocrinology [address] [place] [phone] Yosi Bustamante MD [address] [place] [address] 2L [place] [address] 07/26/2024 10:00 AM TANK FARM ATTENDANT Appointment [facility]IC RAD [address] [place] [address] Neri Delgado MD [address] [place] [address] 07/26/2024 10:00 AM TANK FARM ATTENDANT Office Visit [facility] - ENT [address] [place] [phone] Myra Farmer, STAFF INTERPRETER [address] [place] [address] 2L [place] [phone] 07/26/2024 11:15 AM TANK FARM ATTENDANT Office Visit [facility] ENT [address] [place] [phone] Neri Delgado MD [address] [place] [address] 08/02/2024 2:20 PM TANK FARM ATTENDANT Appointment [facility] [address] [place] [address] 08/02/2024 3:00 PM TANK FARM ATTENDANT Office Visit [facility] - Hematology/Oncology [address] [place] [phone] Remi Beck[place] MD [address] [place] [phone] 08/18/2024 1:45 PM TANK FARM ATTENDANT Office Visit [facility]NT [address] [place] [address] Neri Delgado MD [facility]5 [place] [address] documented as of this encounter Visit Diagnoses Diagnosis Rotator cuff arthropathy of left shoulder- Primary documented in this encounter Care Teams Aids Social Worker Relationship Specialty Start Date End Date Joseph Manzanares MD [address] [place] [address] PCP - General Internal Medicine 06/10/22 07/14/22 Adriana Adams DO [address] [place] [address] Resident - PCP Internal Medicine 04/06/22 01/12/23 documented as of this encounter
--- OUTSIDE RECORDS SUMMARY | 2024-07-23 07:13 | XMS_ITS | Encounter Summary ---
Author Organization [facility] Health Address [address] [facility] [address] [place] [address] Care Team Providers Care Reservoir Caretaker Name Role Phone Adriana Adams DO Unavailable Joseph Manzanares MD Primary Care Provider [phone] Encounter Details Date Type Department Care Team (Latest Contact Info) Description 07/02/2022 Travel Social History Tobacco Use Types Packs/Day [...] Coronavirus/COVID-19? No / Unsure 06/25/2022 10:01 AM REQUISITION APPROVER documented as of this encounter Functional Status [...] st Contact Info) Description 07/25/2024 10:00 AM REQUISITION APPROVER Office Visit [facility] - Endocrinology [address] [place] [phone] Yosi Bustamante MD [address] [place] [address] 2L Div [place] [address] 07/26/2024 10:00 AM REQUISITION APPROVER Appointment [facility] [address] [place] [phone] Neri Delgado MD [address] [place] [address] 07/26/2024 10:00 AM REQUISITION APPROVER Office Visit [facility] - ENT [address] [place] [phone] Myra Farmer, RETAIL PERFORMANCE SPECIALIST [address] [place] [address] 2L [place] [address] 07/26/2024 11:15 AM REQUISITION APPROVER Office Visit [facility] [address] [place] [phone] Neri Delgado MD [address] [place] [address] 08/02/2024 2:20 PM REQUISITION APPROVER Appointment [facility] [address] [place] [address] 08/02/2024 3:00 PM REQUISITION APPROVER Office Visit [facility] - Hematology/Oncology [address] [place] [phone] Remi Beckett MD [address] [place] [phone] 08/18/2024 1:45 PM REQUISITION APPROVER Office Visit [facility]NT [address] [place] [phone] Neri Delgado MD [address] [place] [address] documented as of this encounter Visit Diagnoses Not on filedocumented in this encounter Care Teams Reservoir Caretaker Relationship Specialty Start Date End Date Joseph Manzanares MD [facility] [place] [phone] PCP - General Internal Medicine 06/10/22 07/14/22 Adriana Adams DO [address] [place] [phone] Resident - PCP Internal Medicine 04/06/22 01/12/23 documented as of this encounter
--- OUTSIDE RECORDS SUMMARY | 2024-07-23 07:13 | XMS_ITS | Encounter Summary ---
Author Organization [facility] Health Address [address] [facility] [place] [address] Care Team Providers Care Risk Control Specialist Name Role Phone Adriana Adams DO Unavailable Taniya Grimes MD Primary Care Provider Encounter Details Date Type Department Care Team (Latest Contact Info) Description 08/19/2022 Travel Social History Tobacco Use Types Packs/Day [...] st Contact Info) Description 07/25/2024 10:00 AM FOREST RANGER TECHNICIAN Office Visit [facility] - Endocrinology [address] [place] [address] Yosi Bustamante MD [address] [place] [address] 2L [place] [address] 07/26/2024 10:00 AM FOREST RANGER TECHNICIAN Appointment [facility] [address] [place] [address] Neri Delgado MD [address] [place] [address] 07/26/2024 10:00 AM FOREST RANGER TECHNICIAN Office Visit [facility] [address] [place] [phone] Myra Farmer, MECHANICAL ASSEMBLER [address] [place] [address] 2L [place] [phone] 07/26/2024 11:15 AM FOREST RANGER TECHNICIAN Office Visit [facility] [address] [place] [phone] Neri Delgado MD [address] [place] [address] 08/02/2024 2:20 PM FOREST RANGER TECHNICIAN Appointment [facility] [address] [place] [address] 08/02/2024 3:00 PM FOREST RANGER TECHNICIAN Office Visit [facility] - Hematology/Oncology [address] [place] [phone] Remi Beckett MD [address] [place] [phone] 08/18/2024 1:45 PM FOREST RANGER TECHNICIAN Office Visit [facility] [address] [place] [phone] Neri Delgado MD [address] [place] [address] documented as of this encounter Visit Diagnoses Not on filedocumented in this encounter Care Teams Risk Control Specialist Relationship Specialty Start Date End Date Taniya Grimes MD [address] [place] [address] PCP - General 07/15/22 10/06/22 Adriana Adams DO [address] [place] [address] Resident - PCP Internal Medicine 04/06/22 01/12/23 documented as of this encounter
--- OUTSIDE RECORDS SUMMARY | 2024-07-23 07:13 | XMS_ITS | Encounter Summary ---
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); Hoarseness; Thyroid cancer (HCC) Social History Tobacco Use [...] Sign Reading Time Taken Comments Blood Pressure 144/92 08/21/2022 1:38 PM LEGAL DEPARTMENT MANAGER Pulse 85 08/21/2022 1:38 PM LEGAL DEPARTMENT MANAGER Temperature - - Respiratory Rate - - Oxygen Saturation - - Inhaled Oxygen Concentration - - Weight 71.9 kg (158 lb 9.6 oz) 08/21/2022 1:38 P M LEGAL DEPARTMENT MANAGER Height 157.5 cm (5' 2) 08/21/2022 1:38 PM LEGAL DEPARTMENT MANAGER Body Mass Index 29.01 08/21/2022 1:38 PM LEGAL DEPARTMENT MANAGER documented in this encounter Functional Status Functional [...] * Patient Instructions* Priscilla Bernstein MA - 08/21/2022 11:34 AM LEGAL DEPARTMENT MANAGER Thank you for visiting [facility] Otolaryngology - Head & Neck Surgery. We [...] an appointment, please call our office at [phone] Wednesday through Wednesday from 8:30 am to4:30 pm. You can also request a routine appointment through your [employer] account. Prescription Refills Contact your pharmacy to [...] the medical exchange at and ask the power machine operator to page the ENT physician biofuels production technician. *Caller ID blocking service will need to be turned off for your call to be returned. We also specialize in Hearing Aids, Allergy testing, swallowing disorders, voice problems, cancer diagnosis, and so much more. Visit our website at [email or web address] for information about our practice and an interactive health encyclopedia. L DEPARTMENT MANAGER documented in this encounter Progress Notes * Fabian Flores MD - 08/21/2022 1:55 PM CST CC: Chief Complaint Patient presents with ??? Thyroid Problem 6m hypothyroidism Diagnosis: Site: Thyroid Histology: PTC Stage: [id number] AJCC IVb Details: Positive margins, LVI +, PNI + (including Right RLN), nodes, JADON + ?? Treatment History: 08/19/20: total thyroidectomy requiring sacrifice of Right RLN/tracheal resection/reanastamosis, bilateral lateral and central neck dissection 02/05/2022: Excision of right central neck mass- Palpable tumor approximately 1 cm in size overlying the right thyroid ala and cricothyroid membrane excised including overlying strap musculature. HPI: Brisa Hogan is a 61 year old female presenting for follow up of her complex thyroid cancer andassociated dysphonia/dysphagia. She had a nuclear medicine thyroid uptake scan on 08/19/22 which showed focal uptake in the left anterior mid-cervical spine suggestive of metastatic disease for which Endocrinology plans to obtain a MRI C-spine today to further evaluate. She cannot restart her thyroid medication until 08/23/22 and has been quite lethargic without it. She does report some throat/neck 'tightness' since surgery, but denies dysphagia, odynophagia, shortness of breath. Her voice comes and goes, currently is quite hoarse but for a period of time after surgery went back to close to normal. She quit smoking tobacco today so that she can get her shoulder surgery. No fevers or new neck masses. Medical History: Past Medical [...] PO) Take by mouth once daily ??? BUPROPION HCL ER, SR, PO Take 100 mg by mouth once daily ??? calcitriol (Rocaltrol) 0.5 MCG capsule TAKE 1 CAPSULE BY MOUTH TWICE A DAY ??? [id number]-[id number] PO Take by mouth once daily ??? [...] fluticasone propionate (FLONASE) 50 MCG/ACT nasal spray [place] 2 (two) sprays into each nostril once daily ??? gabapentin (Neurontin) 300 MG capsule Take 1 (one) capsule by mouth 3 times daily ??? [id number]-[id number]-C-HYAL PO Take 1 tablet by mouth 3 times daily ??? levothyroxine (Synthroid) 112 MCG tablet TAKE 1 TABLET BY MOUTH EVERY DAY ??? lidocaine (Lidoderm) 5 % patch Apply 2 (two) patches to skin once daily Apply patch to most painful area and remove after 12 hours. May reapply a new patch 12 hours later. ??? methylPREDNISolone (Medrol Dosepak) 4 MG tablet Take by mouth as directed Follow package insertdosing for six day supply. ??? Misc Natural Products (NEURIVA PO) Take 2 capsules by mouth every morning ??? nicotine (NICODERM CQ) 14 MG/24HR patch Apply 1 (one) patch to skin once daily ??? oxybutynin CR 24hr (Ditropan-XL) 5 MG tablet Take 1 (one) tablet by mouth once daily ??? pantoprazole EC (Protonix) 40 MG tablet TAKE ONE TABLET BY MOUTH ONCE DAILY FOR STOMACH ??? PARoxetine (PAXIL) 40 MG tablet Take 1 (one) tablet by mouth once daily ??? thyrotropin tayo (THYROGEN) injection Inject 0.9 mg into muscle every 24 hours for 2 doses Reasons: Cancer of Thyroid ??? traZODone (DESYREL) 50 MG tablet Take 1 (one) tablet by mouth at bedtime ??? vitamin E (TOCOPHERYL) 200 UNIT capsule Take 1 (one) capsule by mouth 3 times daily No current facility-administered medications for this visit. Allergies: Allergies Allergen Reactions ??? Kiwi Extract Anaphylaxis ??? Shellfish Allergy Other Passed out after eating lobster but can eat shrimp and crab Social History: Smokin+ pack-years, currently ~1/4 - 1/2 PPD Exam: Vitals: 08/21/22 1338 BP: 144/92 Pulse: 85 Weight: 71.9 kg (158 lb 9.6 oz) Height: 1.575 m (5' 2) General: Awake [...] nerves III-XII grossly intact ?? Procedure Note Endoscopy Type: Laryngoscopy without stroboscopy 79029 Endoscope: Flexible 4mm Scope Anesthesia: Lidocaine 2% and Neosynephrine 1/2% (nasal) Procedure Details: The patient was sitting upright in a chair with the head in a slightly anterior sniffing position. The topical anesthesia was administered and then adequate time was allowed for an anesthetic effect.The endoscope was passed thru the nasal cavity. [...] abnormalities. Immediate subglottis widely patent Condition: Stable. Patient tolerated procedure well. Complications: None Dr. Delgado was present for the entirety of the procedure. IMAGING: NM Tumor local spect/whole body scan 08/19/22 - focal uptake in left anterior mid-cervical spine, nolesions noted in the central neck or tracheoesophageal groove. Assessment/Plan: 1. 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 Now with recent NM thyroid scan showing focal uptake in the left anterior mid-cervical spine. Plan for MRI C-spine to be obtained today. Will await results, discuss with endocrinology and determine follow up afterwards. 2. Survivorship - Smoking cessation counseling: reports quitting smoking today - Annual TSH: followed by Endocrine (last TSH 209 on 08/14/22) - Annual lung cancer screening: CT lung screen ordered by PCP 08/12/22 Fabian Flores MD PGY-5 Otolaryngology - Head and Neck Surgery 08/21/22 2:37 PM L DEPARTMENT MANAGER Associated attestation - Neri Delgado MD - 08/22/2022 10:25 AM LEGAL DEPARTMENT MANAGER Attending Physician Supervisory Note I personally interviewed and examined the patient and agree with the Resident above. In addition I note: [id number] high risk papillary thyroid cancer, now s/p salvage surgery for recurrence adjacent to the thyroid cartilage with rising thyroglobulin and iodine scan concerning for recurrence within the cervical spine, pending MRI for further evaluation. Will need multidisciplinary discussion pending MRI to determine available treatment. I was present for all procedures during this visit. Neri Delgado MD documented in this encounter Procedure Notes * Fabian Flores MD - 08/21/2022 2:38 PM CSTAssociated Order(s): PROC ENDOSCOPY-LARYNX Procedure(s): WA LARYNGOSCOPY,FLEX FIBER,DIAGNOSTIC Pre-Procedure Diagnose(s): Hoarseness Procedure Note Endoscopy Type: Laryngoscopy without stroboscopy 01575 Endoscope: Flexible 4mm Scope Anesthesia: Lidocaine 2% and Neosynephrine 1/2% (nasal) Procedure Details: The patient was sitting upright in a chair with the head in a slightly anterior sniffing position. The topical anesthesia was administered and then adequate time was allowed for an anesthetic effect.The endoscope was passed thru the nasal cavity. [...] abnormalities. Immediate subglottis widely patent Condition: Stable. Patient tolerated procedure well. Complications: None Dr. Delgado was present for the entirety of the procedure. L DEPARTMENT MANAGER documented in this encounter Plan of Treatment Upcoming Encounters Date Type Department Care Team (Late st Contact Info) Description 07/25/2024 10:00 AM LEGAL DEPARTMENT MANAGER Office Visit [facility] - Endocrinology [address] [place] [phone] Yosi Bustamante MD [address] [place] [address] 2L [place] [address] 07/26/2024 10:00 AM LEGAL DEPARTMENT MANAGER Appointment [facility] DI[facility] RAD [address] [place] [address] Neri Delgado MD [address] [place] [address] 07/26/2024 10:00 AM LEGAL DEPARTMENT MANAGER Office Visit [facility] - ENT [address] [place] [phone] Myra Farmer, MINER ASSISTANT [address] [place] [address] 2L [place] [address] 07/26/2024 11:15 AM LEGAL DEPARTMENT MANAGER Office Visit [facility] - ENT [address] [place] [address] [phone] Neri Delgado MD [address] [place] [address] 08/02/2024 2:20 PM LEGAL DEPARTMENT MANAGER Appointment [facility] [address] [place] [address] 08/02/2024 3:00 PM LEGAL DEPARTMENT MANAGER Office Visit [facility] - Hematology/Oncology [address] [place] [phone] Remi Beckett MD [address] [place] [phone] 08/18/2024 1:45 PM LEGAL DEPARTMENT MANAGER Office Visit [facility] - ENT [address] [place] [address] Neri Delgado MD [address] [place] [address] documented as of this encounter Procedures Procedure Name Priority Date/Time Associated Diagnosis Comments WA LARYNGOSCOPY,FLEX FIBER,DIAGNOSTIC Routine 08/21/2022 2:38 PM LEGAL DEPARTMENT MANAGER Hoarseness documented in this encounter Results * WA LARYNGOSCOPY,FLEX FIBER,DIAGNOSTIC (08/21/2022 2:38 PM LEGAL DEPARTMENT MANAGER) Narrative Neri Delgado MD - 08/21/2022 2:38 PM LEGAL DEPARTMENT MANAGER Fabian Flores MD ? 08/22/2022 10:25 AM Procedure Note Endoscopy Type: ??Laryngoscopy without stroboscopy 51409 Endoscope: Flexible 4mm Scope Anesthesia: Lidocaine 2% [...] documented in this encounter Visit Diagnoses Diagnosis Complete paralysis of right vocal cord- Primary Hoarseness Dysphonia Thyroid cancer (HCC) Malignant neoplasm of thyroid gland documented in this encounter Care Teams Weld Engineer Relationship Specialty Start Date End Date Taniya Grimes MD [address] [place] [phone] PCP - General 07/15/22 10/06/22 Adriana Adams DO [address] [place] [phone] Resident - PCP Internal Medicine 04/06/22 01/12/23 documented as of this encounter
--- OUTSIDE RECORDS SUMMARY | 2024-07-23 07:14 | XMS_ITS | Encounter Summary ---
Author Organization [facility] Health Address [address] [facility] [place] [address] Care Team Providers Care Credit Reporter Name Role Phone Marylu Marie DO Unavailable Taniya Grimes MD Primary Care Provider [phone] Reason for Referral * Radiology Services (Routine) - Closed Specialty Diagnoses / Procedures Referred By Yuan robins Referred To Contact CT Scan Diagnoses Thyroid cancer (HCC) Procedures [place] [address] [place] [address] [facility] [address] [place] [address] Referral ID Status Reason Start Date Expiration Date Visits Re quested Visits Authorized [id number] Closed 01/14/2022 01/14/2023 1 1 Encounter Details Date Type Department Care Team (Late st Contact Info) Description 01/08/2022 Orders Only [facility] [address] [place] [phone] Neri Delgado MD [facility] [place] [address] Thyroid cancer (HCC) Social History Tobacco Use Types Packs/Day Years Used Date Smoking Tobacco: Light Smoker Cigarettes 0.3 51 Started: 07/22/1973 Smokeless Tobacco: Never Comments:3-4 cig a day Alcohol Use Standard Drinks/Week Comments No 0 (1 standard drink = 0.6 oz pur e alcohol) PHQ-2 Answer Date Recorded PHQ2 TOTAL SCORE 0 12/18/2021 Sex and Gender Information Value Date Recorded Sex Assigned at Not on file Gender Identity Not on file Sexual Orientation Not on file documented as of this encounter Functional Status Functional Status Response Date of Assess ment Is person deaf or have serious hearing difficult y? No 08/20/2020 Is person blind or have serious difficulty seein g? No 08/20/2020 Does person have serious dif ficulty walking/climbing stairs? No 08/20/2020 Does person have difficulty dressing/bathing? No 08/20/2020 Does person have difficulty doing errands alone? No 08/20/2020 Cognitive Status Response Date of Assessm ent Does person have difficulty concentrating/remembering/making decisions? No 08/20/2020 documented as of this encounter Progress Notes * Mariah Nunn RN - 01/08/2022 12:[address] Delgado discussed case with Dr. Bustamante and CT neck with contrast is recommended for better characterization of larynx. Will add scan appointment before Dr. Delgado appointment on 01/28. Mariah Zafar RN documented in this encounter Plan of Treatment Upcoming Encounters Date Type Department Care Team (Late st Contact Info) Description 07/25/2024 10:00 AM PHOTOGRAPHIC PLATE MAKER Office Visit [facility] - Endocrinology [address] [place] [address], [place] [phone] Yosi Bustamante MD [address] [place] [address] [place] [address] 07/26/2024 10:00 AM PHOTOGRAPHIC PLATE MAKER Appointment [facility] [address] [place] [address] Neri Delgado MD [address] [place] [address] 07/26/2024 10:00 AM PHOTOGRAPHIC PLATE MAKER Office Visit [facility] - ENT [address] [place] [phone] Myra Farmer, PATIENT ACCOUNTING REPRESENTATIVE [address] [place] [address] [place] [phone] 07/26/2024 11:15 AM PHOTOGRAPHIC PLATE MAKER Office Visit [facility] [address] [place] [phone] Neri Delgado MD [address] [place] [address] 08/02/2024 2:20 PM PHOTOGRAPHIC PLATE MAKER Appointment [facility] [address] [place] [address] 08/02/2024 3:00 PM PHOTOGRAPHIC PLATE MAKER Office Visit [facility] - Hematology/Oncology [address] [place] [phone] Remi Beckett MD [address] [place] [phone] 08/18/2024 1:45 PM PHOTOGRAPHIC PLATE MAKER Office Visit [facility] [address] [place] [phone] Neri Delgado MD [address] [place] [phone] documented as of this encounter Results * CT NECK SOFT TISSUE W CONT (01/28/2022 9:45 AM CDT) Anatomical Region Laterality Modality Head Computed Tomogra phy 01/29/2022 10:2 3 AM CDT Impressions 01/29/2022 10:51 AM CDT IMPRESSION: Postoperative changes consistent with previous thyroidectomy and neck dissection. Two enhancing nodules in the thyroid bed operative region suspicious for recurrence, as detailed above. Clinical correlation is recommended. Degenerative changes in the cervical spine with canal and foraminal narrowing, as described above. This report was electronically signed by Toñito Lucia MD ??on 01/29/2022 10:51 AM . Narrative 01/29/2022 10:[address] NECK SOFT TISSUE HISTORY: Thyroid cancer. CT TECHNIQUE: CT examination of the cervical soft tissues was performed using the standard protocol during the infusion of intravenous contrast. CONTRAST: EXAM 100 mL of Isovue 370 IV. FINDINGS: Surgical clips are noted within the cervical soft tissues consistent with postoperative changes consistent of previous thyroidectomy and neck dissection. The parotid and submandibular salivary glands have a normal appearance. The parapharyngeal fat planes are preserved. The floor of mouth structures are normal. There is some relatively symmetric adduction of both true vocal cords towards the midline likely due to exhalation against partially closed glottis during the study. There are postoperative changes consistent with previous thyroidectomy with surgical clips in the operative bed. There is some deformity of the posterolateral aspect of the right trachea in this region likely representing postoperative change. There are 2 foci of hyperattenuation consistent with enhancement the operative bed suggestive of recurrence. That on the right is demonstrated on series 4 images 63 through 66 and measures approximately 10 mm in long axis and 6 mm in short axis that on the left is demonstrated on series 4 images 71 through 74 and measures approximately 11 mm in long axis and 5 mm in short axis. Elsewhere within the cervical soft tissues there are no definitely enlarged or abnormally enhancing lymph nodes Mild mucous membrane thickening is present in the left ethmoid and left maxillary sinuses. Degenerative changes in the cervical spine with multilevel spondylosis, facet arthropathy, and foraminal narrowing. There is a possible left paracentral/foraminal disc herniation at C5-6 level. The paracentral component of this extends rostral extension to just below the C4-5 disc space. There is severe canal narrowing at C4-5 mild canal narrowing at C5-6 and C6-7. There is a partially calcified nodule in the upper lobes right lung. On today's study is compared to a previous soft tissue neck CT of 24 July 2020, the postoperative changes are new; the enlarged left level 3 lymph node is no longer present. The ill-defined enhancement in the right putamen is unchanged. Procedure Note Toñito Lucia MD - 01/29/2022 CT NECK SOFT TISSUE HISTORY: Thyroid cancer. CT TECHNIQUE: CT examination of the cervical soft tissues was performed using the standard protocol during the infusion of intravenous contrast. CONTRAST: EXAM 100 mL of Isovue 370 IV. FINDINGS: Surgical clips are noted within the cervical soft tissues consistentwith postoperative changes consistent of previous thyroidectomy and neck dissection. The parotid and submandibular salivary glands have a normal appearance. The parapharyngeal fat planes are preserved. The floor of mouth structures are normal. There is some relatively symmetric adduction of both true vocal cords towards the midline likely due to exhalation against partially closed glottis during the study. There are postoperative changes consistent with previous thyroidectomy with surgical clips in the operative bed. There is some deformity of the posterolateral aspect of the right trachea in this region likely representing postoperative change. There are 2 foci of hyperattenuation consistent with enhancement the operative bed suggestive of recurrence. That on the right is demonstrated on series 4 images 63 through 66 and measures approximately 10 mm in long axis and 6 mm in short axis that on the left is demonstrated on series 4 images 71 through 74 and measures approximately 11 mm in long axis and 5 mm in short axis. Elsewhere within the cervical soft tissues there are no definitely enlarged or abnormally enhancing lymph nodes Mild mucous membrane thickening is present in the left ethmoid and left maxillary sinuses. Degenerative changes in the cervical spine with multilevel spondylosis, facet arthropathy, and foraminal narrowing. There is a possible left paracentral/foraminal disc herniation at C5-6 level. The paracentral component of this extends rostral extension to just below the C4-5 disc space. There is severe canal narrowing at C4-5 mild canal narrowing at C5-6 and C6-7. There is a partially calcified nodule in the upper lobes right lung. On today's study is compared to a previous soft tissue neck CT of 24 July 2020, the postoperative changes are new; the enlarged left level3 lymph node is no longer present. The ill-defined enhancement in theright putamen is unchanged. IMPRESSION: Postoperative changes consistent with previous thyroidectomy and neck dissection. Two enhancing nodules in the thyroid bed operative region suspicious for recurrence, as detailed above. Clinical correlation is recommended. Degenerative changes in the cervical spine with canal and foraminal narrowing, as described above. This report was electronically signed by Toñito Lucia MD on01/29/2022 10:51 AM . Neri Delgado MD CT ORDERABLES documented in this encounter Visit Diagnoses Diagnosis Thyroid cancer (HCC)- Primary Malignant neoplasm of thyroid gland Thyroid cancer (HCC) Malignant neoplasm of thyroid gland documented in this encounter Care Teams Credit Reporter Relationship Specialty Start Date End Date Taniya Grimes MD [address] DIV OF [facility] [place] [address] PCP - General 07/01/20 05/10/22 Marylu Marie DO [address] DIV OF [facility] [place] [address] Resident - PCP Student Resident 06/26/20 01/11/22 documented as of this encounter
--- OUTSIDE RECORDS SUMMARY | 2024-07-23 07:14 | XMS_ITS | Encounter Summary ---
Author Organization [facility] Health Address [address] [place] [place] [address] Care Team Providers Care Hand Silvering Supervisor Name Role Phone Marylu Marie DO Unavailable [phone] Taniya Grimes MD Primary Care Provider Encounter Details Date Type Department Care Team (Late st Contact Info) Description 12/25/2021 Orders Only [facility] End[facility]ology, Diabetes and Metabolism [address] [place] [address], [place] [phone] Yosi Bustamante MD [address] [place] [address] of Endocrinology [place], [place] [phone] Thyroid cancer (HCC); Postoperative hypothyroidism Social History [...] No 08/20/2020 documented as of this encounter Plan of Treatment Upcoming Encounters Date Type Department Care Team (Late st Contact Info) Description 07/25/2024 10:00 AM TEACHER ASSISTANT Office Visit [facility] - Endocrinology [address] [place] [phone] Yosi Bustamante MD [address] [place] [address] 2[address] [place] [address] 07/26/2024 10:00 AM TEACHER ASSISTANT Appointment [facility] [address] [place] [address] Neri Delgado MD [address] [place] [address] 07/26/2024 10:00 AM TEACHER ASSISTANT Office Visit [facility] - ENT [address] [place] [phone] Myra Farmer, LOOM FIXER [address] [place] [address] 2L [place] [phone] 07/26/2024 11:15 AM TEACHER ASSISTANT Office Visit [facility] - ENT [address] [place] [phone] Neri Delgado MD [address] [place] [address] 08/02/2024 2:20 PM TEACHER ASSISTANT Appointment [facility] [address] [place] [address] 08/02/2024 3:00 PM TEACHER ASSISTANT Office Visit [facility] - Hematology/Oncology [address] [place] [phone] Remi Beckett MD [address] [place] [address], [place] [address] 08/18/2024 1:45 PM TEACHER ASSISTANT Office Visit [facility] - ENT [address] [place] [phone] Neri Delgado MD [address] [place] [address] documented as of this encounter Visit Diagnoses Diagnosis Thyroid cancer (HCC) Malignant neoplasm of thyroid gland Postoperative hypothyroidism Postsurgical hypothyroidism documented in this encounter Care Teams Hand Silvering Supervisor Relationship Specialty Start Date End Date Taniya Grimes MD [address] [place] [address] 2L DIV OF [facility] [place] [address] PCP - General 07/01/20 05/10/22 Marylu Marie DO [address] [place] [address] [address] DIV OF [facility] [address] Resident - PCP Student Resident 06/26/20 01/11/22 documented as of this encounter
--- OUTSIDE RECORDS SUMMARY | 2024-07-23 07:14 | XMS_ITS | Encounter Summary ---
Author Organization [facility] Health Address [address] [facility] [place] [address] Care Team Providers Care Clinical Nursing Manager Name Role Phone Taniya Grimes MD Primary Care Provider Rocio Barcenas MD Unavailable Reason for Visit * Radiology Services (Routine) - Closed Specialty Diagnoses / Procedures Referred By Yuan robins Referred To Contact CT Scan Diagnoses Thyroid cancer (HCC) Procedures CT NECK SOFT TISSUE W CONT Neri Delgado MD [address] [place] [address] [facility] [address] [place] [address] Referral ID Status Reason Start Date Expiration Date Visits Re quested Visits Authorized [id number] Closed 01/14/2022 01/14/2023 1 1 Encounter Details Date Type Department Care Team (Latest Contact Info) Description 01/28/2022 9:18 AM CDT - 01/28/2022 11:59 PM CDT Hospital Encounter [facility] [address] [place] [address] Neri Delgado MD [address] [place] [address] Discharge Disposition: Home or Self Care Social [...] No 08/20/2020 documented as of this encounter Medications at Time of Discharge Medication Sig Dispensed Refills Start Date End Date famotidine (PEPCID) 20 MG tablet Take 1 (one) tablet by mouth 2 times daily as needed 05/27/2020 PARoxetine (PAXIL) 40 MG tablet Take 1 [...] hours as needed Reasons: Pain 06/13/2023 atorvastatin (LIPITOR) 40 MG tabletIndications:Hype rlipidemia, unspecified hyperlipidemia type TAKE 1 TABLET BY MOUTH EVERYDAY AT BEDTIME 30 tablet 3 07/23/2021 05/13/2022 celecoxib (CELEBREX) 200 MG capsuleIndications:Nicole favio osteoarthritis [...] tablets by mouth once daily 10/29/2021 06/14/2023 fluticasone propionate (FLONASE) 50 MCG/ACT nasal spray Tolono 2 (two) sprays into each nostril once daily 48 g 10/20/2021 11/25/2022 gabapentin (NEURONTIN) 300 MG capsuleIndications:Nicole favio osteoarthritis of left hip TAKE 1 CAPSULE BY MOUTH THREE TIMES A DAY 90 capsule 5 10/08/2021 04/06/2022 [id number]-C -HYAL PO Take 1 tablet by mouth 3 times daily 06/13/2023 levothyroxine (SYNTHROID) 112 MCG tabletIndications:Post operative hypothyroidism Take 1 (one) tablet by mouth once daily 90 tablet 4 10/08/2021 07/06/2022 Misc Natural Products (NEURIVA PO) Take 2 capsules by mouth every morning 09/14/2022 nicotine (NICODERM CQ) 14 MG/24HR patchIndications:Tobac co use disorder Apply 1 (one) patch to skin once daily 30 patch 6 10/29/2021 10/21/2022 oxyCODONE, immediate release, (Roxicodone) 5 MG tablet Take 1 (one) tablet by mouth every 4 hours as needed 12 tablet 02/05/2022 03/18/2022 pantoprazole EC (PROTONIX) 40 MG tabletIndications:Justo roesophageal reflux disease, unspecified whether esophagitis present TAKE ONE TABLET BY MOUTH ONCE DAILY FOR STOMACH 90 tablet 01/12/2022 05/11/2022 thyrotropin tayo (THYROGEN) injectionIndications:M alignant Neoplasm of [...] st Contact Info) Description 07/25/2024 10:00 AM MEDIA MANAGER Office Visit [facility] - Endocrinology [address] [place] [address] Yosi Bustamante MD [address] [place] [address] 2L [place] [address] 07/26/2024 10:00 AM MEDIA MANAGER Appointment [facility] [address] [place] [address] Neri Delgado MD [address] [place] [address] 07/26/2024 10:00 AM MEDIA MANAGER Office Visit [facility] - ENT [address] [place] [phone] Myra Farmer, TREE THINNER [address] [place] [address] 2L [place] [phone] 07/26/2024 11:15 AM MEDIA MANAGER Office Visit [facility] - ENT [address] [place] [phone] Neri Delgado MD [address] [place] [address] 08/02/2024 2:20 PM MEDIA MANAGER Appointment [facility] [address] [place] [address] 08/02/2024 3:00 PM MEDIA MANAGER Office Visit [facility] - Hematology/Oncology [address] [place] [phone] Remi Beckett MD [address] [place] [phone] 08/18/2024 1:45 PM MEDIA MANAGER Office Visit [facility] - ENT [address] [place] [phone] Neri Delgado MD [address] [place] [address] documented as of this encounter Procedures Procedure Name Priority Date/Time Associated Diagnosis Comments CT NECK SOFT TISSUE W CONT Routine 01/28/2022 9:45 AM CDT Thyroid cancer (HCC) CREATININE - POCT INTERFACED Routine 01/28/2022 9:26 AM CDT documented in this encounter Results * CT NECK SOFT [...] AM . Neri Delgado MD CT ORDERABLES * (ABNORMAL) CREATININE - POCT INTERFACED (01/28/2022 9:26 AM CDT) Creatinine POCT 0.83 0.30 - 1.30 mg/dL 01/28/2022 9:40 AM CDT [facility] eGFR 79(L) >90 mL/min/1.7 3 m2 01/28/2022 9:40 AM CDT [facility] Blood BLOOD SPECIMEN / Unknown 01/28/2022 9:26 AM CDT 01/28/2022 9:39 AM CDT Neri Delgado MD LAB - POINT OF CARE ORDERABLES [address] [phone], [facility] [phone] documented in this encounter Visit Diagnoses Diagnosis Thyroid cancer (HCC) Malignant neoplasm of thyroid gland documented in this encounter Administered Medications Inactive Administered Medications - up to 3 most recent administrations Medication Order MAR Action Action Date Dose Rate Site iopamidol (Isovue 370) 76 % contrast Intravenous, CONTRAST ONCE, Starting on Wed01/28/22 at 0919, Until Josi 01/29/22 at 0132 $ Given - Contrast 01/28/2022 9:33 AM CDT 100 mL documented in this encounter Care Teams Clinical Nursing Manager Relationship Specialty Start Date End Date Taniya Grimes MD [address] [place] [address] PCP - General 07/01/20 05/10/22 Rocio Barcenas MD [address] [place] [address] Resident - PCP Internal Medicine 01/12/22 04/05/22 documented as of this encounter
--- OUTSIDE RECORDS SUMMARY | 2024-07-23 07:14 | XMS_ITS | Encounter Summary ---
Author Organization [facility] Health Address [address] [place] [address] Care Team Providers Care Transition Coach Name Role Phone Taniya Grimes MD Primary Care Provider Rocio Barcenas MD Unavailable Reason for Visit * Auth/Cert Specialty Diagnoses / Procedures Referred By Contac t Referred To Contact Diagnoses Thyroid cancer (HCC) THYROID CANCER Procedures DISSECTION NECK Referral ID Status Reason Start Date Expiration Date Visits Re quested Visits Authorized [id number] 1 1 Encounter Details Date Type Department Care Team (Late st Contact Info) Description 02/05/2022 10:29 AM CDT Anesthesia Event [facility] [address] [place] [phone] Rachel Aviles MD [address] [facility] [place] [phone] Anesthesia Record Procedure Summary Procedure Name Responsible Anesthesiologist Anesthesia Start Time Anesthesia Stop Time EXCISION RIGHT CENTRAL NECK MASS (Right: Neck) Rachel Aviles MD 02/05/22 1029 02/05/22 1209 Events Date Time Event Comment 02/05/2022 0823 1029 An Start 1029 Pt In Room 1029 An Start Data 1031 PT Reassessment 1036 Induction 1039 An Intubation 1046 Anes Ready 1051 Local Infiltration by Surgeo n 1102 Time Out Anesthesia part icipated in timeout at the time documented in the record by nursing 1103 Proc Start 1152 Proc Stop 1152 An Emergence 1157 Extubation 1201 an stop data 1202 Pt out of Room 1202 ANPTO2 1209 An Stop Meds Name Total midazolam 2 mg/2mL injection 2 mg fentaNYL 100 mcg/2ml injection 100 mcg lidocaine PF 2% 100 mg propofol 200mg/20mL injection 150 mg rocuronium 50 mg/5 mL injection 40 mg dexamethasone 10 mg/ml PF injection 8 mg famotidine 20 mg/2mL injection 20 mg ondansetron 4mg/2mL injection 4 mg sugammadex 200 mg/2mL injection 200 mg ceFAZolin (Ancef) 1 g injection 2 g LR (Lactated ringers) 1,000 mL * Agents Name Insp. N2O Exp. Sevoflurane Exp. N2O O2 Insp. Sevoflurane N2O * Blood No blood administrations on file. Lines, Drains, and Airways Type Details Placement Removal Peripheral IV Date: 02/05/22; Time : 814; Orientation: Left; Placed By: marcelino; Tolerance: Well 02/05/22 0815 by Beatriz White RN 02/05/22 1450 by Milly Veloz RN ETT Date: 02/05/22; Time : 103; Placed By: Mukund Arriaga; Vent: easy mask; Induction: Standard IV; Blade Type: Young; Blade Size: 2; Laryngoscopy View: Grade 1 (full cords); Intubation Adjuncts: Stylet, Cricoid Pressure; Tube: Endotracheal Tube; Placement: Oral; Tube Type: Cuffed-inflated; Tube Size(mm): 7 MM; Depth of Insertion: 21 CM; Measured From: lips; Attempts: 1; Cuff Infated: Air; Verified By: Direct visualization, Bilateral breath sounds, Chest Auscultation, CO2 Monitor 02/05/22 1039 by Kendra Smith Anes Asst 02/05/22 1157 by Kendra Smith Anes Asst Procedural Site (Incision) 02/05/22; 1143; Neck; exofin applied to surgical incision; 02/05/22; 205802/05/22 1143 by Cristina Karimi RN 02/05/222058 by Veritract, Auto Release documented in this encounter Social History Tobacco [...] as of this encounter Progress Notes * Rachel Aviles MD - 02/05/2022 12:40 PM CDT ANESTHESIA POSTOP EVALUATION NOTE Procedure: EXCISION RIGHT CENTRAL NECK MASS (Right Neck) Brisa Hogan is a 61 year old female Patient Vitals for the past 6 hrs: BP Temp Pulse Resp SpO2 Pain Rating Score #1 Pain Scale/Observation Pulse - (SPO2/Cuff) 02/05/22 0800 142/75 -- 70 23 -- -- -- -- 02/05/22 0805 125/70 -- 68 16 -- -- -- -- 02/05/22 0815 126/77 -- 70 22 97 % -- -- 70 bpm 02/05/22 0830 132/81 -- 66 (!) 8 96 % -- -- 67 bpm 02/05/22 0833 -- -- -- -- -- 0 N -- 02/05/22 0845 128/63 -- 64 13 96 % -- -- 66 bpm 02/05/22 0850 -- -- 66 18 96 % -- -- 67 bpm 02/05/22 1205 (!) 195/110 97.7 ??F (36.5 ??C) 78 15 100 % -- B -- 02/05/22 1210 (!) 198/102 -- 81 12 100 % -- -- -- 02/05/22 1215 (!) 199/99 -- 77 14 99 % -- -- -- 02/05/22 1220 (!) 200/98 -- 78 13 100 % -- -- -- 02/05/22 1225 (!) 185/98 -- 76 13 100 % -- -- -- 02/05/22 1230 (!) 178/109 -- 75 12 100 % -- -- -- 02/05/22 1235 (!) 178/104 -- 73 11 100 % -- -- -- Anesthesia Type: general ETT Pre-op Diagnosis Codes: * Thyroid cancer [C73] Mental Status: awake, alert and oriented Neuro Status: No numbness, tingling or visual disturbances Respiratory Function: natural Cardiac Function: stable Postop Pain: acceptable to the patient Postop Hydration: adequate Postop Nausea: none Assessment: no apparent anesthetic complications, patient tolerated procedure well and no evidence of recall Patient Disposition: Release from Anesthesia Care COMPLICATIONS: No complications documented. * Rachel Aviles MD - 01/30/2022 3:33 PM CDT ANESTHESIA PREOPERATIVE EVALUATION NOTE Procedure: EXCISION CENTRAL NECK MASS (N/A Neck) Vitals: Patient Vitals for the past 6 hrs: BP Temp Pulse Resp SpO2 01/30/22 1526 149/77 98.8 ??F (37.1 ??C) 79 18 97 % LMP: No LMP recorded. Patient is postmenopausal. OB Status: Postmenopausal ANESTHESIA PRE-EVALUATION NOTE History of Present Illness: This is a 61-year-old female who presents to PAT clinic for preoperative evaluation for excision ofcentral neck mass scheduled with ENT for 02/05/22. Patient has a hx of papillary thyroid cancer s/p total thyroidectomy??requiring??sacrifice of Right??RLN/tracheal resection/reanastamosis,??bilateral lateral??and central neck dissection. 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 Now with palpable nodule over R neck highly suspicious for recurrence. Other PMH includes hypothyroidism, GERD, tobacco/marijuana abuse, HLD, anxiety, depression. Home medications include levothyroxine 112 mcg, protonix 40 qd, atorvastatin 40 qhs. Allergies include kiwi extract. The patient is a current smoker. Physical Exam: Orientation X3 Airway/Mallampati Score: I Mouth Opening Distance: 3 fingerwidths Neck ROM: full TM Distance: > 3 FB Teeth: poor dentition and caps/crowns Heart: normal - S1 S2 Lungs: clear to ausculation bilaterally Abdomen Exam: soft Review of Systems: History of anesthetic complications: No Sleep Apnea Risk: Yes, Loud snoring GERD: Yes, well controlled Poor Exercise Tolerance: Yes (due to pain) Recent Chest Pain: No Shortness of Breath: No AICD/Pacemaker: No Renal Disease: No Diagnostic Tests: ECG(s) reviewed: Yes (08/2017 NSR) Lab(s) reviewed: Yes ([facility] 12/08/21 reviewed: Cr 0.82, K 4.6.). Anes Plan BMI, Height, Weight Tobacco History Estimated body mass index is 29.85 kg/m?? as calculated from the following: Height as of this encounter: 1.575 m (5' 2). Weight as of this encounter: 74 kg (163 lb 3.2 oz). Social History Tobacco Use Smoking Status Light Tobacco Smoker ??? Packs/day: 0.25 ??? Years: 40.00 ??? Pack years: 10.00 ??? Types: Cigarettes ??? Start date: 07/22/1973 Smokeless Tobacco Never Used Tobacco Comment 3-4 cig a day Alcohol History Drug History Social History Substance and Sexual Activity Alcohol Use No Social History Substance and Sexual Activity Drug Use Not Currently ??? Types: Cocaine, Marijuana Comment: marijuana occasionally, last used 07/31/20, cocaine Outpatient Medications: Inpatient Medications: No outpatient medications have been marked as taking for the 01/30/22 encounter (Hospital Encounter)with [facility]. No current facility-administered medications for this encounter. Allergies: Allergies Allergen Reactions ??? Kiwi Extract Anaphylaxis Relevant Problems No relevant active problems Problem List: Patient Active Problem List Diagnosis Date Noted ??? Depression, unspecified 05/22/2021 Priority: Not Prioritized ??? Neoplasm of uncertain behavior of skin 12/09/2020 Priority: Not Prioritized ??? Other seborrheic keratosis 12/09/2020 Priority: Not Prioritized ??? Postoperative hypothyroidism 10/14/2020 Priority: Not Prioritized ??? Thyroid cancer 10/14/2020 Priority: Not Prioritized ??? Hypocalcemia 10/14/2020 Priority: Not Prioritized ??? Other hypoparathyroidism 10/14/2020 Priority: Not Prioritized ??? Cellulitis 08/08/2020 [...] breath) 2/2 thyroid mass ??? Thyroid cancer 10/14/2020 ??? Tracheal mass Surgical History: Past Surgical History: Procedure Laterality Date ??? Bilateral Tubal Ligation (BTL) ??? Section ??? ENDOSCOPY, COLON, DIAGNOSTIC no polyp ??? ENT SURGERY N/A 08/19/2020 N/A; TOTAL THYROIDECTOMY WITH CENTRAL NECK DISSECTION, RIGHT AND LEFT NECK DISSECTIONS ??? ENT SURGERY N/A 08/19/2020 N/A; TRACHEAL TUMOR RESECTION ??? LARYNGOSCOPY N/A 08/19/2020 N/A; DIRECT LARYNGOSCOPY WITH BIOPSY ??? Polypectomy cervical PLASTIC DESIGN APPLIER Status: No LMP recorded. Patient is postmenopausal. Postmenopausal OB History No obstetric history on file. Covid Vaccine: Lab Results: Recent Labs Base Name 12/25/21 1156 [id number] Recent Labs Component Name 10/29/21 0000 NITRITE - NEG PROTEINUA - NEG Recent Labs Component Name 12/08/21 0912 POTASSIUM 4.6* CALCIUM 8.0* CO2 22 GLUCOSE 95 BUN 16 CREATININE 0.82 Recent Labs Component Name 12/08/21 0912 PHOS 4.9 Recent Labs Component Name 12/08/21 0912 TSH <0.010* No results found for requested labs within last 120 days. Recent Labs Result Component Current Result Anion Gap 17 (12/08/2021) eGFR 79 (L) (01/28/2022) PAT evaluation start: (INSERT IN SIDE-BAR IMMEDIATELY AFTER DIAGNOSTIC TESTS. (F2 left / right click to select options below. CTRL-Z to undo) - if BP is poorly controlled (eg SBP >180 or DBP >110) then contact Dr. Rodriguez or AIC - if patient taking GUSTABO-I or ARB or Entresto then hold ONLY AM dose on DOS unless severe CHF or poorly controlled HTN This evaluation was based on PAT clinic visit I. Perioperative Cardiac Risk Index Stratification based on 2014 ACC/AHA Guidelines for patients undergoing noncardiac surgery Perioperative risk of a Major Adverse Cardiac Event (MACE) during hospitalization. Add one point (0-6) for each positive RCRI (Revised Cardiac Risk Indicator) 1. Is the surgery high-risk? NO 2. History of ischemic heart disease? NO If yes then paste summary of most recent cath / stress tests under Other Additional Findings/Comments section above: 3. History of CHF? no If yes then paste summary of most recent TTE / WILLY under Other Additional Findings/Comments sectionabove: Murmur? no if yes and without recent [...] Dr. Rodriguez or KRISS 5. Insulin-dependent Diabetes? no Insulin pump? no if yes then patient was instructed to continue at 75% basal rate on DOS? no Long acting insulin: glargine (Lantus,Toujeo, Basaglar), detemir (Lemenir), degludec (Tresiba) N/A 6. Preoperative creatinine > 2 mg/dl? no Baseline Cr? 0.6-0.8 Total RCRI / MACE score 0 Points >= 0.4% If MACE < 1%, no further testing [...] PM and Within 6 months for AICD [place] Information needed (utility bill collector, mode, indication for CIED, battery life, magnet function): IV. Anticoagulants Is patient receiving chronic antiplatelet/ [...] for a T&S (call Dr Rodriguez or AIC) to arrange. Order a 2nd T&S (re-type) for DOS If no previous blood product transfusion AND EBL >250 then order a T&S for DOS only VII. Known ALLISON or STOP-BANG> 5 no Snoring, feel Tired, Observed apnea, high blood Pressure, BMI >35, Age > 50, Neck circumference > 18 VIII. Known or suspected difficult airway no and complete previous airway management section above If yes then: update Epic problem list to include: difficult airway and call Dr. Rodriguez or KRISS IX. Frailty screen: No data recorded X. Suboxone (Buprenorphine / Naloxone) therapy? N/A XI. Most recent EKG (summarize, do not copy and paste): 08/2017 NSR. EKG needed within 6 months if: (ASA >= 3 OR any RCRI) AND non-low risk procedure [...] ordered today including PAT and surgeon orders: none Labs/ tests ordered or in need of review on DOS: none Summary: Brisa Hogan is a 61 year old female presenting for EXCISION CENTRAL NECK MASS (N/A Neck). They have an ASA score of 2 and a RCRI / MACE score of 0 Points >= 0.4% Follow up results - have ALL the above ordered labs and vital signs been reviewed? YES - results are grossly WNL for this patient They ARE OPTIMIZED - PAT EVALUATION INCOMPLETE Marcus Flynn DO 01/30/2022 3:48 PM for this procedure. Preoperative plan was not discussed w/ PAT attending (date and name). (please note that ALL RESIDENT charts must be discussed with the PAT director or designated person) PLEASE REMEMBER TO REFRESH THE VITAL SIGNS ABOVE BEFORE CLOSING ENCOUNTER PAT evaluation end: documented in this encounter Procedure Notes * Kendra Smith Anes Asst - 02/05/2022 10:47 AM CDTAssociated Order(s): ETT Placement Endotracheal Tube Placement: Patient Location: OR. Intubation Event Date/Time: 02/05/2022 10:39 AM Procedure: intubation (47579). Procedure Section: Sedation: under general anesthesia. Indications for Airway Management: anesthesia Procedure pretreatments used? No Induction: standard IV Patient Position: sniffing Mask Ventilation: easy. Blade Type: Young Blade [...] auscultation and CO2 monitor Tube secured with: adhesive tape. Dentition unchanged? Yes Difficult Airway? No. Procedure Start Time: 02/05/2022 10:39 AM. Staff Section Anesthesia Provider: Kendra Smith Anes Asst, Performed the procedure documented in this encounter Consult Notes * Rachel Aviles MD - 02/05/2022 8:23 AM CDT ANESTHESIA PREOPERATIVE EVALUATION NOTE Procedure: EXCISION CENTRAL NECK MASS (N/A Neck) Vitals: No data found. LMP: No LMP recorded. Patient is postmenopausal. OB Status: Postmenopausal PreEval ANESTHESIA PLAN ASA Score: 3 NPO Status: No solids since midnight Anesthesia Plan: general ETT Planned Induction: intravenous Planned Postop Destination: PACU Anesthetic plan was discussed with: patient Anesthetic Plan discussion was: Consented Use of blood products were discussed with: patient Use of blood product discussion was: Consented The patient's procedural Anesthetic Plan was discussed with the licensed occupational therapy assistant. BMI, Height, Weight Tobacco History Estimated body mass index is 29.85 kg/m?? as calculated from the following: Height as of 01/30/22: 1.575 m (5' 2). Weight as of 01/30/22: 74 kg (163 lb 3.2 oz). Social History Tobacco Use Smoking Status Heavy Tobacco Smoker ??? Packs/day: 0.50 ??? Years: 40.00 ??? Pack years: 20.00 ??? Types: Cigarettes ??? Start date: 07/22/1973 Smokeless Tobacco Never Used Alcohol History Drug History Social History Substance and Sexual Activity Alcohol Use No Social History Substance and Sexual Activity Drug Use Not Currently ??? Types: Marijuana Comment: marijuana A FEW PUFFS DAILY for pain Outpatient Medications: Inpatient Medications: Outpatient Medications Marked as Taking for the 02/05/22 encounter (Hospital Encounter) Medication Sig Last Dose ??? acetaminophen Take 1,000 mg by mouth every 8 hours as needed 02/05/2022 at 0630 ??? atorvastatin TAKE 1 TABLET BY MOUTH EVERYDAY AT BEDTIME 02/04/2022 at Unknown time ??? celecoxib Take 1 (one) capsule by mouth once daily 01/31/2022 ??? cetirizine Take 1 (one) tablet by mouth once daily 02/05/2022 at 0630 ??? clonazePAM Take 1.5 (one and one-half) tablets by mouth once daily 02/05/2022 at 0630 ??? famotidine Take 20 mg by mouth 2 times daily as needed 02/05/2022 at 0630 ??? fluticasone propionate [place] 2 (two) sprays into each nostril once daily 02/05/2022 at Unknown time ??? gabapentin TAKE 1 CAPSULE BY MOUTH THREE TIMES A DAY 02/05/2022 at 0630 ??? levothyroxine Take 1 (one) tablet by mouth once daily 02/05/2022 at 0630. ??? nicotine Apply 1 (one) patch to skin once daily 02/04/2022 at Unknown time ??? pantoprazole EC TAKE ONE TABLET BY MOUTH ONCE DAILY FOR STOMACH 02/05/2022 at 0630 ??? PARoxetine Take 40 mg by mouth once daily 02/05/2022 at 0630 ??? traZODone Take 50 mg by mouth at bedtime 02/03/2022 at Unknown time Current Facility-Administered Medications Medication Dose Last Admin ??? lactated ringers Allergies: Allergies Allergen Reactions ??? Kiwi Extract Anaphylaxis ??? Shellfish Allergy Other Passed out after eating lobster but can eat shrimp and crab Problem List: Patient Active Problem List Diagnosis Date Noted ??? Depression, unspecified 05/22/2021 Priority: Not Prioritized ??? Neoplasm of uncertain behavior of skin 12/09/2020 Priority: Not Prioritized ??? Other seborrheic keratosis 12/09/2020 Priority: Not Prioritized ??? Postoperative hypothyroidism 10/14/2020 Priority: Not Prioritized ??? Thyroid cancer 10/14/2020 Priority: Not Prioritized ??? Hypocalcemia 10/14/2020 Priority: Not Prioritized ??? Other hypoparathyroidism 10/14/2020 Priority: Not Prioritized ??? Cellulitis 08/08/2020 [...] breath) 2/2 thyroid mass ??? Thyroid cancer 10/14/2020 ??? Tracheal mass Surgical History: Past Surgical History: Procedure Laterality Date ??? Bilateral Tubal Ligation (BTL) ??? Section ??? ENDOSCOPY, COLON, DIAGNOSTIC no polyp ??? ENT SURGERY N/A 08/19/2020 N/A; TOTAL THYROIDECTOMY WITH CENTRAL NECK DISSECTION, RIGHT AND LEFT NECK DISSECTIONS ??? ENT SURGERY N/A 08/19/2020 N/A; TRACHEAL TUMOR RESECTION ??? LARYNGOSCOPY N/A 08/19/2020 N/A; DIRECT LARYNGOSCOPY WITH BIOPSY ??? Polypectomy cervical PLASTIC DESIGN APPLIER Status: No LMP recorded. Patient is postmenopausal. Postmenopausal OB History No obstetric history on file. Covid Vaccine: Lab Results: Recent Labs Base Name 12/25/21 1156 [id number] Recent Labs Component Name 10/29/21 0000 NITRITE - NEG PROTEINUA - NEG Recent Labs Component Name 12/08/21 0912 POTASSIUM 4.6* CALCIUM 8.0* CO2 22 GLUCOSE 95 BUN 16 CREATININE 0.82 Recent Labs Component Name 12/08/21 0912 PHOS 4.9 Recent Labs Component Name 12/08/21 0912 TSH <0.010* No results found for requested labs within last 120 days. Recent Labs Result Component Current Result Anion Gap 17 (12/08/2021) eGFR 79 (L) (01/28/2022) documented in this encounter Miscellaneous Notes * Anesthesia Transfer of Care - Kendra Smith Anes Asst - 02/05/2022 12:10 PM CDT ANESTHESIA TRANSFER OF CARE NOTE Today's Date: 02/05/2022 Date of : 1960 Patient: Brisa Hogan Procedure(s): EXCISION RIGHT CENTRAL NECK MASS Surgeon(s): Primary: Neri Delgado MD Resident - Assisting: Joycelyn Wilcox MD Preop Diagnosis: Pre-op Diagnois: * Thyroid cancer [C73] Pre-op Meds (From admission, onward) Start Stop Status Route Frequency Ordered 02/05/22 0745 lactated ringers infusion -- Dispensed IV PRE-OP CONTINUOUS 02/05/22 0742 02/05/22 1209 oxyCODONE (immediate release) (Roxicodone) tablet 10 mg Or Linked Group Details -- Sent PO EVERY 6 HOURS PRN 02/05/22 1209 02/05/22 1209 oxyCODONE (immediate release) (Roxicodone) tablet 5 mg Or Linked Group Details -- Sent PO EVERY 6 HOURS PRN 02/05/22 1209 Post-op Diagnosis: * Thyroid cancer [C73] . Allergies Allergen Reactions ??? Kiwi Extract Anaphylaxis ??? Shellfish Allergy Other Passed out after eating lobster but can eat shrimp and crab Vitals: No data found. Lines, Drains, and Airways Type Details Placement Removal Peripheral IV Date: 02/05/22; Time: 814; Orientation: Left; Location: Hand; Placed By: marcelino; Gauge: 18 Gauge; Tolerance: Well 02/05/22814 by Beatriz White RN ETT Date: 02/05/22; Time: 1038; Placed By: Mukund Arriaga; Vent: easy mask; Induction: Standard IV; Blade Type: Young; Blade Size: 2; Laryngoscopy View: Grade 1 (full cords); Intubation Adjuncts: Stylet, Cricoid Pressure; Tube: Endotracheal Tube; Placement: Oral; Tube Type: Cuffed-inflated; Tube Size(mm): 7 MM; Depth of Insertion: 21 CM; Measured From: lips; Attempts: 1; Cuff Infated: Air; Verified By: Direct visualization, Bilateral breath sounds, Chest Auscultation, CO2 Monitor 02/05/22 103 by Kendra Smith Anes Asst 02/05/22 1157 by Kendra Smith Anes Asst Intraprocedure I/O Totals None Patient Transfer Location: PACU Transport Airway: spontaneous [...] understanding of report from the receiving PACUteam. Mukund Arriaga documented in this encounter Plan of Treatment Upcoming Encounters Date Type Department Care Team (Late st Contact Info) Description 07/25/2024 10:00 AM PRESSURE CONTROLLER Office Visit [facility] - Endocrinology [address] [place] [phone] Yosi Bustamante MD [address] [place] [address] [address] [place] [address] 07/26/2024 10:00 AM PRESSURE CONTROLLER Appointment [facility] [address] [place] [phone] Neri Delgado MD [address] [place] [phone] 07/26/2024 10:00 AM PRESSURE CONTROLLER Office Visit [facility] - ENT [address] [place] [phone] Myra Farmer, GROUNDSKEEPER SUPERVISOR [address] [place] [address] [address] [place] [phone] 07/26/2024 11:15 AM PRESSURE CONTROLLER Office Visit [facility] - ENT [address] [place] [phone] Neri Delgado MD [address] [place] [phone] 08/02/2024 2:20 PM PRESSURE CONTROLLER Appointment [facility] [address] [place] [phone] 08/02/2024 3:00 PM PRESSURE CONTROLLER Office Visit [facility] Hematology/Oncology [address] [place] [phone] Remi [place] MD [address] [place] [phone] 08/18/2024 1:45 PM PRESSURE CONTROLLER Office Visit [facility] - ENT [address] [place] [phone] Neri Delgado MD [facility] [place] [address] documented as of this encounter Procedures Procedure Name Priority Date/Time Associated Diagnosis Comments ENDOTRACHEAL TUBE NOTE Routine 02/05/2022 10:47 AM CDT documented in this encounter Results * ETT LINE PERFORMABLE (02/05/2022 10:47 AM CDT) Narrative Kendra Smith Anes Asst - 02/05/2022 10:47 AM CDT Kendra Smith Anes Asst ? 02/05/2022 10:51 AM Endotracheal Tube Placement: ? Patient Location: OR. Intubation Event Date/Time: ??02/05/2022 10:39 AM Procedure: intubation (06766). Procedure Section: ?? Sedation: under general anesthesia. [...] procedure Rachel Aviles MD GENERAL ANESTHESIA ORDERABLES documented in this encounter Visit Diagnoses Not on filedocumented in this encounter Administered Medications Inactive Administered Medications - up to 3 most recent administrations Medication Order MAR Action Action Date Dose Rate Site ceFAZolin (Ancef) injection Intravenous, PRN, Starting on Josi 02/05/22 at 1057, Until Josi 02/05/22 at 1209, Anesthesia Intra-op $ Given 02/05/2022 10:57 AM CDT 2 g dexAMETHasone Sod Phosphate PF injection Intravenous, PRN, Starting on Josi 02/05/22 at 1107, Until Josi 02/05/22 at 1209, Anesthesia Intra-op $ Given 02/05/2022 11:07 AM CDT 8 mg famotidine (Pepcid) injection Intravenous, PRN, Starting on Josi 02/05/22 at 1107, Until Josi 02/05/22 at 1209, Anesthesia Intra-op $ Given 02/05/2022 11:07 AM CDT 20 mg fentaNYL (PF) (Sublimaze) injection Intravenous, PRN, Starting on Josi 02/05/22 at 1034, Until Josi 02/05/22 at 1209, Anesthesia Intra-op $ Given 02/05/2022 11:30 AM CDT 50 mcg $ Given 02/05/2022 10:34 AM CDT 50 mcg lactated ringers infusion Intravenous, CONTINUOUS PRN, Starting on Josi 02/05/22 at 1029, Until Josi 02/05/22 at 1209, Anesthesia Intra-op $ New Bag/Syringe 02/05/2022 10:29 AM CDT lidocaine HCl (PF) (Xylocaine MPF) 2 % injection Intravenous, PRN, Starting on Josi 02/05/22 at 1036, Until Josi 02/05/22 at 1209, Anesthesia Intra-op $ Given 02/05/2022 10:36 AM CDT 100 mg midazolam (Versed) injection Intravenous, PRN, Starting on Josi 02/05/22 at 1029, Until Josi 02/05/22 at 1209, Anesthesia Intra-op $ Given 02/05/2022 10:29 AM CDT 2 mg ondansetron (Zofran) injection Intravenous, PRN, Starting on Josi 02/05/22 at 1130, Until Josi 02/05/22 at 1209, Anesthesia Intra-op $ Given 02/05/2022 11:30 AM CDT 4 mg propofol (Diprivan) injection Intravenous, PRN, Starting on Josi 02/05/22 at 1036, Until Josi 02/05/22 at 1209, Anesthesia Intra-op $ Given 02/05/2022 10:36 AM CDT 150 mg rocuronium (Zemuron) injection Intravenous, PRN, Starting on Josi 02/05/22 at 1036, Until Josi 02/05/22 at 1209, Anesthesia Intra-op $ Given 02/05/2022 10:36 AM CDT 40 mg sugammadex ([place]) injection Intravenous, PRN, Starting on Josi 02/05/22 at 1130, Until Josi 02/05/22 at 1209, Anesthesia Intra-op $ Given 02/05/2022 11:30 AM CDT 200 mg documented in this encounter Care Teams Transition Coach Relationship Specialty Start Date End Date Taniya Grimes MD [address] [place] [address] PCP - General 07/01/20 05/10/22 Rocio Barcenas MD [address] [facility] [place] [address] Resident - PCP Internal Medicine 01/12/22 04/05/22 documented as of this encounter
--- OUTSIDE RECORDS SUMMARY | 2024-07-23 07:14 | XMS_ITS | Encounter Summary ---
Author Organization [facility] Address [address] [place] [address] Care Team Providers Care Title Coordinator Name Role Phone Adriana Adams DO Unavailable Eliane Tillman MD Primary Care Provider [phone] Encounter Details Date Type Department Care Team (Late st Contact Info) Description 05/20/2022 Orders Only [facility], Diabetes and Metabolism [address] [place] [address], [place] [phone] Yosi Bustamante MD [address] [place] [address] of Endocrinology [place], [place] [phone] Postoperative hypothyroidism ; Thyroid cancer (HCC) Social [...] st Contact Info) Description 07/25/2024 10:00 AM CLAY DRY PRESS MIXER OPERATOR Office Visit [facility] - Endocrinology [address] [place] [phone] Yosi Bustamante MD [address] [place] [address] 2L [place] [address] 07/26/2024 10:00 AM CLAY DRY PRESS MIXER OPERATOR Appointment [facility] [address] [place] [phone] Neri Delgado MD [address] [place] [address] 07/26/2024 10:00 AM CLAY DRY PRESS MIXER OPERATOR Office Visit [facility] - ENT [address] [place] [phone] Myra Farmer, CONFERENCE CENTER COORDINATOR [address] [place] [address] 2L [place] [phone] 07/26/2024 11:15 AM CLAY DRY PRESS MIXER OPERATOR Office Visit [facility] - ENT [address] [place] [phone] Neri Delgado MD [address] [place] [address] 08/02/2024 2:20 PM CLAY DRY PRESS MIXER OPERATOR Appointment [facility] [address] [place] [address] 08/02/2024 3:00 PM CLAY DRY PRESS MIXER OPERATOR Office Visit [facility] - Hematology/Oncology [address] [place] [phone] [place] [address] [place] [phone] 08/18/2024 1:45 PM CLAY DRY PRESS MIXER OPERATOR Office Visit [facility] - ENT [address] [place] [phone] Neri Delgado MD [address] [place] [address] documented as of this encounter Visit Diagnoses Diagnosis Postoperative hypothyroidism- Primary Postsurgical hypothyroidism Thyroid cancer (HCC) Malignant neoplasm of thyroid gland documented in this encounter Care Teams Title Coordinator Relationship Specialty Start Date End Date Eliane Tillman MD [address] [place] [address] PCP - General 05/11/22 06/09/22 Adriana Adams DO [facility] [place] [phone] Resident - PCP Internal Medicine 04/06/22 01/12/23 documented as of this encounter
--- OUTSIDE RECORDS SUMMARY | 2024-07-23 07:14 | XMS_ITS | Encounter Summary ---
Author Organization [facility] Address [address] [facility] [place] [address] Care Team Providers Care Family Resource Management Professor Name Role Phone Adriana Adams DO Unavailable Eliane Tillman MD Primary Care Provider [phone] Reason for Visit * Reason Onset Date Comments MEDICATION REFILL 05/11/2022 Encounter Details Date Type Department Care Team (Late st Contact Info) Description 05/11/2022 Refill [facility] [address] [place] [address] Adriana Adams DO [address] [place] [address] MEDICATION REFILL Social History Tobacco [...] Telephone Encounter - Lexii Birch RN - 05/11/2022 10:57 AM CST Calling for Protonix and atorvastatin. Protonix added to the refill request. Refill Request Brisa Hogan ELE: 12/18/21 Williamson MAY scheduled: 06/10/2022 Sunq NDR LRF: 01/12/22 Qty Disp: 90 # of refills: 0 Allergies: Allergies Allergen Reactions ??? Kiwi Extract Anaphylaxis ??? Shellfish Allergy Other Passed out after eating lobster but can eat shrimp and crab Pended Medication Order: Requested Prescriptions Pending Prescriptions Disp Refills ??? atorvastatin (Lipitor) 40 MG tablet 30 tablet 3 Sig: TAKE 1 TABLET BY MOUTH EVERYDAY AT BEDTIME ??? pantoprazole EC (Protonix) 40 MG tablet 90 tablet 0 Sig: TAKE ONE TABLET BY MOUTH ONCE DAILY FOR STOMACH TAL STRATEGY MANAGER * Telephone Encounter - Jennifer Galo - 05/11/2022 10:52 AM CST Refill Request Brisa Hogan ELE: 12/18/21May due: 06/10/22May scheduled: 06/10/2022 LRF: 12/14/21 Qty Disp: 30 # of refills: 3 Allergies: Allergies Allergen Reactions ??? Kiwi Extract Anaphylaxis ??? Shellfish Allergy Other Passed out after eating lobster but can eat shrimp and crab Pended Medication Order: Requested Prescriptions Pending Prescriptions Disp Refills ??? atorvastatin (Lipitor) 40 MG tablet 30 tablet 3 Sig: TAKE 1 TABLET BY MOUTH EVERYDAY AT BEDTIME TAL STRATEGY MANAGER documented in this encounter Plan of Treatment Upcoming Encounters Date Type Department Care Team (Late st Contact Info) Description 07/25/2024 10:00 AM DIGITAL STRATEGY MANAGER Office Visit [facility] - Endocrinology [address] [place] [address] [place] [address] Yosi Bustamante MD [address] [place] [address] 2L [place] [address] 07/26/2024 10:00 AM DIGITAL STRATEGY MANAGER Appointment [facility] [address] [place] [address] Neri Delgado MD [address] [place] [address] 07/26/2024 10:00 AM DIGITAL STRATEGY MANAGER Office Visit [facility] - ENT [address] [place] [phone] Myra Farmer, AGRICULTURAL EQUIPMENT SALES ENGINEER [address] [place] [address] 2L [place] [phone] 07/26/2024 11:15 AM DIGITAL STRATEGY MANAGER Office Visit [facility] - ENT [address] [place] [phone] Neri Delgado MD [address] [place] [address] 08/02/2024 2:20 PM DIGITAL STRATEGY MANAGER Appointment [facility] [address] [place] [address] 08/02/2024 3:00 PM DIGITAL STRATEGY MANAGER Office Visit [facility] - Hematology/Oncology [address] [place] [phone] Remi Beckett MD [address] [place] [phone] 08/18/2024 1:45 PM DIGITAL STRATEGY MANAGER Office Visit [facility] - ENT [address] [place] [phone] Neri Delgado MD [address] [place] [address] documented as of this encounter Visit Diagnoses Diagnosis Hyperlipidemia, unspecified hyperlipidemia type Gastroesophageal reflux disease, unspecified whether esophagitis present documented in this encounter Care Teams Family Resource Management Professor Relationship Specialty Start Date End Date Eliane Tillman MD [address] [place] [address] PCP - General 05/11/22 06/09/22 Adriana Adams DO [facility] [place] [address] Resident - PCP Internal Medicine 04/06/22 01/12/23 documented as of this encounter
--- OUTSIDE RECORDS SUMMARY | 2024-07-23 07:14 | XMS_ITS | Encounter Summary ---
Author Organization [facility] Health Address [address] [place] [address] Care Team Providers Care Superintendent Of Generation Name Role Phone Taniya Grimes MD Primary Care Provider Rocio Barcenas MD Unavailable Reason for Visit * Auth/Cert Specialty Diagnoses / Procedures Referred By Yuan robins Referred To Contact Diagnoses Thyroid cancer (HCC) THYROID CANCER Procedures DISSECTION NECK Referral ID Status Reason Start Date Expiration Date Visits Re quested Visits Authorized [id number] 1 1 Encounter Details Date Type Department Care Team (Latest Contact Info) Description 02/05/2022 7:34 AM CDT - 02/05/2022 2:59 PM CDT Hospital Encounter [facility] [address] [place] [phone] Neri Delgado MD [address] [place] [address] Surgery General Discharge Disposition: Home or Self Care Social [...] Sign Reading Time Taken Comments Blood Pressure 115/75 02/05/2022 2:30 PM CDT Pulse 71 02/05/2022 2:30 PM CDT Temperature 36.7 ??C (98 ??F) 02/05/2022 2:30 PM CDT Respiratory Rate 14 02/05/2022 2:30 PM CDT Oxygen Saturation 91% 02/05/2022 2:30 PM CDT Inhaled Oxygen Concentration - - Weight 73 kg (160 lb 14.4 oz) 02/05/2022 8:33 AM CDT Height 157.5 cm (5' 2) 02/05/2022 8:33 AM CDT Body Mass Index 29.43 02/05/2022 8:33 AM CDT documented in this encounter Functional [...] AT BEDTIME 30 tablet 3 07/23/2021 05/13/2022 B Complex Vitamins (B COMPLEX 1 PO) Take by mouth once daily 12/24/2022 [id number]-[id number]-XDGU PO Take by mouth once daily 06/13/2023 [...] fluticasone propionate (FLONASE) 50 MCG/ACT nasal spray [place] 2 (two) sprays into each nostril once daily 48 g 10/20/2021 11/25/2022 gabapentin (NEURONTIN) 300 MG capsuleIndications:Nicole stahl osteoarthritis of left hip TAKE 1 CAPSULE BY MOUTH THREE TIMES A DAY 90 capsule 5 10/08/2021 04/06/2022 JMAQJC-LEYKTOXMJ-DJR-C -HYAL PO Take 1 tablet by mouth [...] as of this encounter Progress Notes * Milly Veloz RN - 02/05/2022 2:57 PM CDT Pt received discharge instructions. No questions or concerns at this time. [facility] [place] [facility] [place] [facility]. Per report from Yessenia FERRIS in PACU pt tolerated po ice chips and water. Pt taken to the bathroom per wheelchair. Pt has all belongings. [facility] with . * Mary Beth Gonzalez CPhT - 02/05/2022 1:51 PM CDT MEDICATION TO BEDSIDE DELIVERY: COMPLETE Medication to Bedside delivery was completed for Brisa Caicedo. ??? A total of 1 prescriptions were delivered to the patient for discharge. ??? Medications were given to NURSE (Milly) ??? This delivery included a controlled substance: YES, given to Milly ??? This delivery included medication that should be stored in the fridge: NO Thank you for allowing the outpatient pharmacy to participate in the care of Brisa Caicedo. If you have any questions, please contact the outpatient pharmacy at [phone]. Mary Beth Gonzalez CPhT [facility] at [address], First Floor [place], [place] [address] Hours of Operation Wednesday - Wednesday: 8:00am to 6:00pm Wednesday: 9:00am to 1:00pm Epic: [facility] *Ensure the patient and clinic's nearby ZIP codes box is unchecked* documented in this encounter H&P Notes * Joycelyn Wilcox MD - 02/05/2022 7:34 AM CDT Images from the original note were not included. OTOLARYNGOLOGY - HEAD & NECK SURGERY - - - H&P PATIENT INFORMATION Brisa Caicedo 61 year old female Today's Date: 02/05/2022 SUBJECTIVE HPI: Brisa Caicedo is a 61 year old female with a PMH significant for aggressive PTC s/p thyroidectomy, tracheal resection/reanastamosis, bilateral neck dissections and central neck dissections, now with right neck recurrence here for revision right central neck dissection with Dr. Delgado No new changes in patient's health or history of presenting illness since last seen. Allergies: Allergies Allergen Reactions ??? Kiwi Extract Anaphylaxis ??? Shellfish Allergy Other Passed out after eating lobster but can eat shrimp and crab Review of Systems: Constitutional: Negative for changes in acitivity level, appetite changes, weight changes, sleep changes HEENT: Negative for rhinorrhea, vision changes, throat ache Respiratory: negative dyspnea, wheezing Cardiovascular: Negative for decreased exercise tolerance Gastrointestinal: Negative for diarrhea, constipation, abdominal pain Musculoskeletal: negative for new joint pain Neurological: negative for seizures HISTORY PAST MEDICAL HISTORY Past Medical History: Diagnosis [...] ??? Thyroid cancer 10/14/2020 ??? Tracheal mass PAST SURGICAL HISTORY Past Surgical History: Procedure Laterality Date ??? Bilateral Tubal Ligation (BTL) ??? Section ??? ENDOSCOPY, COLON, DIAGNOSTIC no polyp ??? ENT SURGERY N/A 08/19/2020 N/A; TOTAL THYROIDECTOMY WITH CENTRAL NECK DISSECTION, RIGHT AND LEFT NECK DISSECTIONS ??? ENT SURGERY N/A 08/19/2020 N/A; TRACHEAL TUMOR RESECTION ??? LARYNGOSCOPY N/A 08/19/2020 N/A; DIRECT LARYNGOSCOPY WITH BIOPSY ??? Polypectomy cervical SOCIAL HISTORY: Social History Tobacco Use ??? Smoking status: Heavy Tobacco Smoker Packs/day: 0.50 Years: 40.00 Pack years: 20.00 Types: Cigarettes Start date: 07/22/1973 ??? Smokeless tobacco: Never Used Vaping Use ??? Vaping Use: Never used Substance Use Topics ??? Alcohol use: No ??? Drug use: Not Currently Types: Marijuana Comment: marijuana A FEW PUFFS DAILY for pain FAMILY HISTORY No family history of wound healing abnormalities. MEDICATIONS No current facility-administered medications on file prior to encounter. Current Outpatient Medications on File Prior to Encounter Medication Sig Dispense Refill ??? acetaminophen (TYLENOL) 500 MG tablet Take 1,000 mg by mouth every 6 hours as needed ??? atorvastatin (LIPITOR) 40 MG tablet TAKE 1 TABLET BY MOUTH EVERYDAY AT BEDTIME 30 tablet 3 ??? celecoxib (CELEBREX) 200 MG capsule Take 1 (one) capsule by mouth once daily 90 capsule 3 ??? cetirizine (ZYRTEC) 10 MG tablet Take 1 (one) tablet by mouth once daily 30 tablet 5 ??? clonazePAM (KLONOPIN) 0.5 MG tablet Take 1.5 (one and one-half) tablets by mouth once daily ??? famotidine (PEPCID) 20 MG tablet Take 20 mg by mouth 2 times daily as needed ??? fluticasone propionate (FLONASE) 50 MCG/ACT nasal spray [place] 2 (two) sprays into each nostril once daily 48 g 0 ??? gabapentin (NEURONTIN) 300 MG capsule TAKE 1 CAPSULE BY MOUTH THREE TIMES A DAY 90 capsule 5 ??? BGORUP-DISHKOKQV-LJH-C-HYAL PO Take 1 tablet by mouth 3 times daily ??? levothyroxine (SYNTHROID) 112 MCG tablet Take 1 (one) tablet by mouth once daily 90 tablet 4 ??? Misc Natural Products (NEURIVA PO) Take 2 capsules by mouth every morning ??? nicotine (NICODERM CQ) 14 MG/24HR patch Apply 1 (one) patch to skin once daily 30 patch 6 ??? pantoprazole EC (PROTONIX) 40 MG tablet TAKE ONE TABLET BY MOUTH ONCE DAILY FOR STOMACH 90 tablet 0 ??? PARoxetine (PAXIL) 40 MG tablet Take 40 mg by mouth once daily 2 ??? thyrotropin tayo (THYROGEN) injection Inject 0.9 mg into muscle every 24 hours for 2 doses Reasons: Cancer of Thyroid 2 mL 0 ??? traZODone (DESYREL) 50 MG tablet Take 50 mg by mouth at bedtime ??? vitamin E (TOCOPHERYL) 200 UNIT capsule Take 200 Units by mouth 3 times daily PEx Vitals: There were no vitals taken for this visit. PHYSICAL EXAM General: NAD. Conversant and appropriate Neuro: Moving all 4. Alert and oriented. HEENT: NC/AT. EOMI. CV: RR. Respiratory: Non-labored respiratory effort. Extremities: WWP OBJECTIVE Recent Labs: No new relevant lab results. Recent Imaging/Studies: No new relevant imaging or vascular studies. Recent Micro/Pathology: No new relevant cultures or biopsies. ASSESSMENT & PLAN rBisa Caicedo is a 61 year old female with aggressive PTC ([id number]) s/p thyroidectomy, tracheal resection/reanastamosis, bilateral neck dissections and central neck dissections, now with right neck recurrence ?? To OR today for revision right central neck dissection with Dr. Delgado ?? All risks/benefits/alternatives explained to family and all questions answered. Family/patient endorses understanding and wishes to proceed. ?? Continue NPO ?? Antibiotics: Ancef Page ENT with questions/concerns. Joycelyn Wilcox MD Otolaryngology Head and Neck Surgery 02/05/2022 8:28 AM Associated attestation - Neri Delgado MD - 02/05/2022 8:56 AM CDT I saw and examined the patient on the date of surgery with the resident and I agree with the documentation, with the following additions/addenda: Interval history: CT final report also describes some enhancement in the left central neck. This carolyn her cricothyroid joint and so resection would substantially increase her risk. We discussed options today and agree to proceed as planned with resection of the right side today. Physical exam: central neck incision, nodule overlying right thyroid cartilage Plan: revision right central neck dissection documented in this encounter OR Notes * Operative - Neri Delgado MD - 02/05/2022 2:59 PM CDT Operative Report NAME: BRISA CAICEDO : 1960 AGE: 61 PROC DATE: 02/05/2022 SEX: F SURGEON: Neri Delgado MD PREOPERATIVE DIAGNOSES: 1. History of locally advanced papillary thyroid cancer. 2. Enhancing right central neck mass. POSTOPERATIVE DIAGNOSES: 1. History of locally advanced papillary thyroid cancer. 2. Enhancing right central neck mass. RESIDENT: Swati Wilcox MD PROCEDURE: Excision of right central neck mass. FINDINGS: Palpable tumor approximately 1 cm in size overlying the right thyroid ala and cricothyroid membrane excised including overlying strap musculature. INDICATIONS FOR PROCEDURE: The patient is a 61-year-old female with a history of locally advanced papillary thyroid carcinoma previously treated with surgical resection including a tracheal resectionand reanastomosis requiring sacrifice of right recurrent laryngeal nerve and adjuvant radioactive iodine treatment. She subsequently developed increasing thyroglobulin, PET avidity in the central neck and a CT scan showing enhancing nodule within the strap musculature overlying the right thyroid cartilage as well as a smaller area of enhancement overlying the left cricothyroid joint. We discussedmultiple management options and ultimately agreed to proceed with the more accessible and larger right-sided nodule first and plan to closely monitor the left-sided area, which would put her last functional left recurrent laryngeal nerve at high risk. The risks, benefits, and alternatives of this approach were discussed with her in detail. All of her questions were answered. She agreed to proceed. DETAILS OF THE PROCEDURE: The patient was brought to the operating room, placed in supine position on the operating room table. General anesthesia was induced. She was orotracheally intubated withoutdifficulty. The neck was extended with a shoulder roll. Three centimeters of her previous neck incision was injected just to the right of midline with local anesthetic and marked. The neck was then pr epped and draped in the usual sterile fashion. The skin was divided with a 15 blade scalpel, continued down through the platysma. Subplatysmal flaps were elevated. We mobilized the sternocleidomastoid muscle laterally, identified the internal jugular vein and mobilized this laterally as well. With these protected, we then divided through the strap muscle above and below the palpable notch and then these right-sided strap musculature from the left along the scarred midline raphe. We then worked through the deep tissue down to the perichondrium over the thyroid cartilage. The mass wasfully removed. I then took additional sample of tissue just deep to this, which likely included thesmall portion of the cricothyroid musculature. Hemostasis was ensured and the wound was copiously irrigated and closed in layers using 3-0 Vicryl deep and Exofin skin glue on the surface. The patientwas then returned to the care of the anesthesiologist, awakened, extubated, and taken to postop recovery room in stable condition. COMPLICATIONS: None. ESTIMATED BLOOD LOSS: 10 mL DISPOSITION: Home. Neri Delgado MD /[facility] .[id number] Doc ID: [id number] Voice Job ID: [id number] * Brief Op Note - Joycelyn Wilcox MD - 02/05/2022 11:03 AM CDT Brief Op Note Procedure: EXCISION RIGHT CENTRAL NECK MASS Patient Name: Brisa Caicedo Date of Service: 02/05/2022 Pre-Op Diagnosis: THYROID CANCER Post-Op Diagnosis: same Surgeon(s) and Role: * Neri Delgado MD - Primary * Joycelyn Wilcox MD - Resident - Assisting Sales Commissions Analyst(s): none Anesthesia Type: general ETT Complications: none Findings: right central neck mass removal EBL: minimal blood loss Urine Output : per anesthesia IV Fluid Intake: per anesthesia Drains: * No LDAs found * Specimen(s): ID Type Source Tests Collected by Time Destination A : right central neck mass Biopsy, Excision Neck PATHOLOGY TISSUE Neri Delgado MD 02/05/2022 11:24AM B : additional tissue over thyroid cartilage Biopsy, Excision Neck PATHOLOGY TISSUE Neri Delgado MD 02/05/2022 11:29 AM Implant(s): * No implants in log * Joycelyn Wilcox MD documented in this encounter Plan of Treatment Upcoming Encounters Date Type Department Care Team (Late st Contact Info) Description 07/25/2024 10:00 AM CHIP [facility]ER [facility] End[facility] [address] [place] [phone] Yosi Bustamante MD [address] [place] [address] 2L [place] [address] 07/26/2024 10:00 AM CHIP MUCKER Appointment [facility] [address] [place] [phone] Neri Delgado MD [address] [place] [id number] 07/26/2024 10:00 AM CHIP MUCKER Office Visit [facility] - ENT [address] [place] [phone] Myra Farmer, PROCESS CONTROL ENGINEER [address] [place] [address] 2L [place] [phone] 07/26/2024 11:15 AM CHIP MUCKER Office Visit [facility] - ENT [address] [place] [phone] Neri Delgado MD [address] [place] [id number] 08/02/2024 2:20 PM CHIP MUCKER Appointment [facility] [address] [place] [address] 08/02/2024 3:00 PM CHIP MUCKER Office Visit [facility] - Hematology/Oncology [address] [place] [phone] Remi Beckett MD [address] [place] [address] 08/18/2024 1:45 PM CHIP MUCKER Office Visit [facility] - ENT [address] [place] [phone] Neri Delgado MD [facility] [place] [address] documented as of this encounter Procedures Procedure Name Priority Date/Time Associated Diagnosis Comments PATHOLOGY TISSUE Routine 02/05/2022 11:2 4 AM CDT Thyroid cancer (HCC) DISSECTION NECK 02/05/2022 11:03 AM CDT Thyroid cancer (HCC) Special Needs SUPINE, HAVE THE NIMS AVAILABLE IN THE ROOMDS 02/02 documented in this encounter Results * PATHOLOGY TISSUE (02/05/2022 11:24 AM CDT) Case Report Surgical Pathology Report ? Case: [id number] ? Authorizing Provider: ??Neri Delgado MD ?Collected: ? 02/05/2022 11:24 AM ? Ordering Location: ? [facility] ?Received: ?02/05/2022 01:03 PM ? Pathologist: ? Munira Chavez MD ? Specimens: ?? A) - Neck, right central neck mass ? B) - Neck, additional tissue over thyroid cartilage ? 12/27/2023 9:39 AM [facility] Final Diagnosis Soft tissue, right central neck mass, excision (A): - Recurrent/residual papillary thyroid carcinoma (1.7 cm), infiltrating skeletal muscle - Margins free of malignancy (0.2 cm) Soft tissue, additional tissue over thyroid cartilage, excision (B): - Benign skeletal muscle 12/27/2023 9:39 AM [facility] Microscopic Description and Comment The sections show nests of neoplastic cells with nuclear clearing and grooves, crowding and overlapping that form papillary and follicular architecture. These sections were compared with the sections from the patient's prior hemithyroidectomy ([id number]). These findings best represent recurrence of the patient's known papillary thyroid carcinoma. 12/27/2023 9:39 AM [facility] Clinical History The patient is a 61-year-old female with a history of locally advance papillary thyroid and an enhancing right central neck mass. Operative procedures/findings: excision of neck mass- palpable tumor approximately 1 cm overlying the thyroid cartilage. 12/27/2023 9:39 AM [facility] Gross Description The requisition and specimen label(s) are identified with the patient's name, Brisa Caicedo. Received in formalin, specimen A, is a 3.0 x 2.0 x 1.5 cm portion of fibroadipose tissue that is inked entirely black. Sectioning shows a 1.7 x 1.2 x 1.0 cm tovar-pink lymph node with attached skeletal muscle. The lymph node is entirely submitted in A1-A2. Received in formalin, specimen B is a 1.0 x 0.6 x 0.4 cm tovar-pink tissue fragment that is submitted B1. SP 12/27/2023 9:39 AM [facility] Addendum 1 A request for xT solid tumor sequencing, PD-L1 22C3, and MMR IHC was received 12/10/23 for patient Brisa Walters from Dr. Remi Beckett. The test is to be performed on tissue from case [id number]. The case report, slides, and blocks for the cited accession were retrieved from the archives. The pathologist whose signature appears below reviewed the original pathology report, examined candidate H&E slides, and selected the block (A1) appropriate to the specifications of the ordered molecular analysis. The tissue was forwarded to [facility] where the subject molecular tests will be performed. 12/27/2023 9:39 AM [facility] Addendum electronically signed by Munira Chavez MD on 12/13/2023 at 1:32 PM Addendum 2 A second [facility] request was received 12/24/23. 12/27/2023 9:39 AM [facility] Addendum electronically signed by Munira Chavez MD on 12/27/2023 at 9:39 AM Disclaimer The performance characteristics of all immunohistochemical and indirect immunofluorescence stains (if any) cited in this report were determined by the [facility]opathology [facility] of [facility]. Some of these tests were developed [...] and interpreted by the attending (teaching) pathologist. 12/27/2023 9:39 AM [facility] Embedded Images 12/27/2023 9:39 AM [facility] Biopsy, Excision ENTIRE NECK / Unknown 02/05/2022 11:24 AM CDT 02/05/2022 1:03 PM CDT Comment:Pre-op diagnosis: THYROID CANCER Biopsy, Excision ENTIRE NECK / Unknown 02/05/2022 11:29 AM CDT 02/05/2022 1:03 PM CDT Comment:Pre-op diagnosis: THYROID CANCER Neri Delgado MD LAB - PATHOLOGY/CYTO LOGY ORDERABLES [facility] [address] [phone] documented in this encounter Visit Diagnoses Diagnosis Thyroid cancer (HCC) Malignant neoplasm of thyroid gland documented in this encounter Administered Medications Inactive Administered Medications - up to 3 most recent administrations Medication Order MAR Action Action Date Dose Rate Site albuterol-ipratropium (Duo-Neb) nebulizer solution 3 mL 3 mL, Inhalation, POST-OP MULTIPLE, Starting on Josi 8 at 1220, Until Josi 8 at 1559, For wheezing. Notify anesthesia immediately., PACU $ Given 02/05/2022 1:21 PM CDT 3 mL $ Given 02/05/2022 12:53 PM CDT 3 mL fentaNYL (PF) (Sublimaze) injection 25 mcg 25 mcg, Intravenous, EVERY 10 MIN PRN, Mild Pain, 4 doses, Starting on Josi 8 at 1220, Until Josi 8 at 1559, Maximum total of 4 doses. If patient [...] documented in the MAR., PACU $ Given 02/05/2022 12:25 PM CDT 25 mcg fentaNYL (PF) (Sublimaze) injection 50 mcg 50 mcg, Intravenous, EVERY 10 MIN PRN, Moderate Pain, 4 doses, Starting on Josi 8 at 1220, Until Josi 8 at 1559, Maximum total of 4 doses. If patient [...] must be documented in the MAR., PACU hydrALAZINE (Apresoline) injection 5 mg 5 mg, Intravenous, POST-OP MULTIPLE, Starting on Josi 02/05/22 at 1220, Until Josi 8 at 1559, IV given slowly over 1 minute, up to 20 mg. Repeat 5 mg IV dose every 10-15 minutes for sustained hypertension SBP greater than 180, DBP greater than 100., PACU HYDROmorphone (Dilaudid) injection 0.5 mg 0.5 mg, Intravenous, EVERY 10 MIN PRN, Severe Pain, 4 doses, Starting on Josi 02/05/22 at 1220, Until Josi 8 at 1559, Maximum total of 4 doses If patient [...] documented in the MAR., PACU $ Given 02/05/2022 12:10 PM CDT 0.5 mg labetalol (Normodyne; Trandate) injection 5 mg 5 mg, Intravenous, POST-OP MULTIPLE, Starting on Josi 02/05/22 at 1220, Until Josi 8 at 1559, IV given slowly over 1 minute up to 20 mg. Repeat every 10-15 minutes in 5 mg doses. Hold if heart rate is less than 60. Give for hypertension SBP greater than 180, DBP greater than 100., PACU $ Given 02/05/2022 12:42 PM CDT 5 mg $ Given 02/05/2022 12:32 PM CDT 5 mg $ Given 02/05/2022 12:21 PM CDT 5 mg lactated ringers infusion at 20 mL/hr, Intravenous, PRE-OP CONTINUOUS, Starting on Josi 02/05/22 at 0745, Until Josi 02/05/22 at 1559, Pre-op naloxone (Narcan) injection 0.04 mg 0.04 mg, Intravenous, POST-OP MULTIPLE, Starting on Josi 02/05/22 at 1220, Until Josi 02/05/22 at 1559, Notify physician immediately, and mix 0.4 mg Naloxone in 9 mL Normal Saline for slow IV push. Administer dilute Naloxone solution IV very slowly (1 mL over 30 seconds) while observing the patient response and titrating to effect. If no response, call Rapid Response, continue IV Naloxone at the same rate up to a total of 0.8 mg of diluted Naloxone., PACU ondansetron (Zofran) injection 4 mg 4 mg, Intravenous, ONCE PRN, Nausea/Vomiting, 1 dose, Starting on Josi 02/05/22 at 1220, Until Josi 02/05/22 at 1559, First choice, PACU oxyCODONE (immediate release) (Roxicodone) tablet 10 mg 10 mg, Oral, EVERY 6 HOURS PRN, Severe Pain, Starting on Josi 02/05/22 at 1209, Until Josi 02/05/22 at 1559, Patient preference for lesser PRN pain meds may be honored when the patient requests a less strong medication, a lower dose, or a less intrusive route of administration when the lesser drug, dose and route have been ordered for the patient. This patient request must be documented in the MAR. oxyCODONE (immediate release) (Roxicodone) tablet 5 mg 5 mg, Oral, EVERY 6 HOURS PRN, Moderate Pain, Starting on Josi 02/05/22 at 1209, Until Josi 02/05/22 at 1559, Patient preference for lesser PRN pain meds may be honored when the patient requests a less strong medication, a lower dose, or a less intrusive route of administration when the lesser drug, dose and route have been ordered for the patient. This patient request must be documented in the MAR. prochlorperazine (Compazine) injection 10 mg 10 mg, Intravenous, ONCE PRN, Nausea/Vomiting, 1 dose, Starting on Josi 8/4/22 at 1220, Until Josi 8 at 1559, Second choice, use if first choice was ineffective., PACU throat lozenge 1 lozenge 1 lozenge, Oral, EVERY 1 HOUR PRN, Sore Throat, Starting on Josi 02/05/22 at 1220, Until Josi 8 at 1559, PACU documented in this encounter Active and Recently Administered Medications Times are shown in CDT. Scheduled Medication Order 02/03/2022 02/04/2022 02/05/2022 albuterol-ipratropium (Duo-Neb) nebulizer solution 3 mL 3 mL, Inhalation, POST-OP MULTIPLE, Starting on Josi 02/05/22 at 1220, Until Josi 02/05/22 at 1559, For wheezing. Notify anesthesia immediately., PACU 1253 ($ Given - Prov ider: CODY Laurent)1321 ($ Given - Provider: CODY Laurent) hydrALAZINE (Apresoline) injection 5 mg 5 mg, Intravenous, POST-OP MULTIPLE, Starting on Josi 02/05/22 at 1220, Until Josi 8 at 1559, IV given slowly over 1 minute, up to 20 mg. Repeat 5 mg IV dose every 10-15 minutes for sustained hypertension SBP greater than 180, DBP greater than 100., PACU labetalol (Normodyne; Trandate) injection 5 mg 5 mg, Intravenous, POST-OP MULTIPLE, Starting on Josi 02/05/22 at 1220, Until Josi 8 at 1559, IV given slowly over 1 minute up to 20 mg. Repeat every 10-15 minutes in 5 mg doses. Hold if heart rate is less than 60. Give for hypertension SBP greater than 180, DBP greater than 100., PACU 1221 ($ Given - Prov ider: CODY Laurent)1232 ($ Given - Provider: CODY Laurent)1242 ($ Given - Provider: CODY Laurent) naloxone (Narcan) injection 0.04 mg 0.04 mg, Intravenous, POST-OP MULTIPLE, Starting on Josi 02/05/22 at 1220, Until Josi 02/05/22 at 1559, Notify physician immediately, and mix 0.4 mg Naloxone in 9 mL Normal Saline for slow IV push. Administer dilute Naloxone solution IV very slowly (1 mL over 30 seconds) while observing the patient response and titrating to effect. If no response, call Rapid Response, continue IV Naloxone at the same rate up to a total of 0.8 mg of diluted Naloxone., PACU Continuous Medication Order 02/03/2022 02/04/2022 02/05/2022 lactated ringers infusion at 20 mL/hr, Intravenous, PRE-OP CONTINUOUS, Starting on Josi 8 at 0745, Until Josi 8 at 1559, Pre-op 0745 (Due) PRN Medication Order 02/03/2022 02/04/2022 02/05/2022 fentaNYL (PF) (Sublimaze) injection 25 mcg 25 mcg, Intravenous, EVERY 10 MIN PRN, Mild Pain, 4 doses, Starting on Josi 02/05/22 at 1220, Until Josi 8 at 1559, Maximum total of 4 doses. If patient [...] must be documented in the MAR., PACU 1225 ($ Given - Prov ider: Yessenia Galvan APRN-SARAH) fentaNYL (PF) (Sublimaze) injection 50 mcg 50 mcg, Intravenous, EVERY 10 MIN PRN, Moderate Pain, 4 doses, Starting on Josi 8 at 1220, Until Josi 8 at 1559, Maximum total of 4 doses. If patient [...] must be documented in the MAR., PACU HYDROmorphone (Dilaudid) injection 0.5 mg 0.5 mg, Intravenous, EVERY 10 MIN PRN, Severe Pain, 4 doses, Starting on Josi 8 at 1220, Until Josi 8 at 1559, Maximum total of 4 doses If patient [...] must be documented in the MAR., PACU 1210 ($ Given - Prov ider: Yessenia Galvan APRN-SHIRT CLEANER) lidocaine 1% (Xylocaine-MPF) - EPINEPHrine 1:100,000 injection (CANCELED) PRN, Starting on Josi 02/05/22 at 1051, Until Josi 8 at 1205, Intra-op 1051 ($ Given - Prov ider: Neri Delgado MD) ondansetron (Zofran) injection 4 mg 4 mg, Intravenous, ONCE PRN, Nausea/Vomiting, 1 dose, Starting on Josi 02/05/22 at 1220, Until Josi 02/05/22 at 1559, First choice, PACU oxyCODONE (immediate release) (Roxicodone) tablet 10 mg(Linked Group 1) 10 mg, Oral, EVERY 6 HOURS PRN, Severe Pain, Starting on Josi 02/05/22 at 1209, Until Josi 8 at 1559, Patient preference for lesser PRN pain meds may be honored when the patient requests a less strong medication, a lower dose, or a less intrusive route of administration when the lesser drug, dose and route have been ordered for the patient. This patient request must be documented in the MAR. oxyCODONE (immediate release) (Roxicodone) tablet 5 mg(Linked Group 1) 5 mg, Oral, EVERY 6 HOURS PRN, Moderate Pain, Starting on Josi 02/05/22 at 1209, Until Josi 8 at 1559, Patient preference for lesser PRN pain meds may be honored when the patient requests a less strong medication, a lower dose, or a less intrusive route of administration when the lesser drug, dose and route have been ordered for the patient. This patient request must be documented in the MAR. prochlorperazine (Compazine) injection 10 mg 10 mg, Intravenous, ONCE PRN, Nausea/Vomiting, 1 dose, Starting on Josi 02/05/22 at 1220, Until Josi 02/05/22 at 1559, Second choice, use if first choice was ineffective., PACU throat lozenge 1 lozenge 1 lozenge, Oral, EVERY 1 HOUR PRN, Sore Throat, Starting on Josi 02/05/22 at 1220, Until Josi 02/05/22 at 1559, PACU Linked Groups Order Group 1: oxyCODONE (immediate release) (Roxicodone) tablet 5 mgJump to med 5 mg, Oral, EVERY 6 HOURS PRN, Moderate Pain, Starting on Josi 02/05/22 at 1209, Until Josi 02/05/22 at 1559, Patient preference for lesser PRN pain meds may be honored when the patient requests a less strong medication, a lower dose, or a less intrusive route of administration when the lesser drug, dose and route have been ordered for the patient. This patient request must be documented in the MAR. Or oxyCODONE (immediate release) (Roxicodone) tablet 10 mgJump to med 10 mg, Oral, EVERY 6 HOURS PRN, Severe Pain, Starting on Josi 02/05/22 at 1209, Until Josi 02/05/22 at 1559, Patient preference for lesser PRN pain meds may be honored when the patient requests a less strong medication, a lower dose, or a less intrusive route of administration when the lesser drug, dose and route have been ordered for the patient. This patient request must be documented in the MAR. documented in this encounter Care Teams Superintendent Of Generation Relationship Specialty Start Date End Date Taniya Grimes MD [address] [place] [address] PCP - General 07/01/20 05/10/22 Rocio Barcenas MD [address] [facility] [place] [address] Resident - PCP Internal Medicine 01/12/22 04/05/22 documented as of this encounter
--- OUTSIDE RECORDS SUMMARY | 2024-07-23 07:14 | XMS_ITS | Encounter Summary ---
Author Organization [facility] Health Address [address] [facility] [place] [address] Care Team Providers Care Licensed Chemical Spray Technician Name Role Phone Adriana Adams DO Unavailable Eliane Tillman MD Primary Care Provider [phone] Reason for Visit * Reason Onset Date Comments Medication Issue 05/11/2022 Encounter Details Date Type Department Care Team (Late st Contact Info) Description 05/11/2022 Telephone [facility] General Internal Medicine [address] [facility], [facility] [place] [phone] Eliane Tillman MD 1 [place] [address] Medication Issue Social History Tobacco Use Types [...] Miscellaneous Notes * Telephone Encounter - Lexii Birch, RN - 05/11/2022 11:27 AM CST Phoned [facility] and spoke to Lisa. She states they cannot call insurance to do an override until the patient calls back and requests this. States they will need to call the insurance but said they recommend that the patient take another look around the house bf they call the insurance. Notified pt and she will take another look and call them if she can't find the med and request an override. R BAG MAKING MACHINIST * Telephone Encounter - Lexii Birch RN - 05/11/2022 11:07 AM CST Pt stating she had he celebrex refilled but can't locate the bottle. She said she told [facility] but cannot get this refilled till July it is too soon to fill. Will need to call [facility] and see they can request an override of thee medication due to losing the med. R BAG MAKING MACHINIST documented in this encounter Plan of Treatment Upcoming Encounters Date Type Department Care Team (Late st Contact Info) Description 07/25/2024 10:00 AM PAPER BAG MAKING MACHINIST Office Visit [facility] - Endocrinology [address] [place] [address], [place] [phone] Yosi Bustamante MD [address] [place] [address] 2L [place] [address] 07/26/2024 10:00 AM PAPER BAG MAKING MACHINIST Appointment [facility] [address] [place] [address] Neri Delgado MD [facility]5 [place] [address] 07/26/2024 10:00 AM PAPER BAG MAKING MACHINIST Office Visit [facility] - ENT [address] [place] [phone] Myra Farmer, BOOK STORE ASSOCIATE [address] [place] [address] [place] [phone] 07/26/2024 11:15 AM PAPER BAG MAKING MACHINIST Office Visit [facility] - ENT [address] [place] [phone] Neri Delgado MD [address] [place] [address] 08/02/2024 2:20 PM PAPER BAG MAKING MACHINIST Appointment [facility] [address] [place] [address] 08/02/2024 3:00 PM PAPER BAG MAKING MACHINIST Office Visit [facility] - Hematology/Oncology [address] [place] [phone] Remi Beckett MD [address] [place] [phone] 08/18/2024 1:45 PM PAPER BAG MAKING MACHINIST Office Visit [facility] - ENT [address] [place] [phone] Neri Delgado MD [address] [place] [address] documented as of this encounter Visit Diagnoses Not on filedocumented in this encounter Care Teams Licensed Chemical Spray Technician Relationship Specialty Start Date End Date Eliane Tillman MD [address] [place] [phone] PCP - General 05/11/22 06/09/22 Adriana Adams DO [address] [place] [phone] Resident - PCP Internal Medicine 04/06/22 01/12/23 documented as of this encounter
--- OUTSIDE RECORDS SUMMARY | 2024-07-23 07:14 | XMS_ITS | Encounter Summary ---
Author Organization [facility] Health Address [address] [facility] [place] [address] Care Team Providers Care Torpedo Shooter Name Role Phone Adriana Adams DO Unavailable Eliane Tillman MD Primary Care Provider [phone] Joseph Manzanares MD Primary Care Provider Taniya Grimes MD Primary Care Provider Reason for Visit * Reason Onset Date Comments Follow-up 05/15/2022 Encounter Details Date Type Department Care Team (Late st Contact Info) Description 05/15/2022 Telephone [facility] Endocrinology, Diabetes and Metabolism [address] [place] [address], [facility] [place] [address] Yosi Bustamante MD [address] [place] [address] [place] [address] Follow-up Social History Tobacco Use Types Packs/Day [...] Coronavirus/COVID-19? No / Unsure 06/25/2022 10:01 AM PEER FINANCIAL COUNSELOR documented as of this encounter Functional Status [...] Telephone Encounter - Kassie Rand RN - 05/15/2022 2:55 PM PEER FINANCIAL COUNSELOR Called pt about thyrogen protocol. Pt reported all the dates provided will work for her. Mailed documentation to pt for reference. FINANCIAL COUNSELOR documented in this encounter Plan of Treatment Upcoming Encounters Date Type Department Care Team (Late st Contact Info) Description 07/25/2024 10:00 AM PEER FINANCIAL COUNSELOR Office Visit [facility] - Endocrinology [address] [place] [phone] Yosi Bustamante MD [address] [place] [address] 2L [place] [address] 07/26/2024 10:00 AM PEER FINANCIAL COUNSELOR Appointment [facility] [address] [place] [phone] Neri Delgado MD [address] [place] [address] 07/26/2024 10:00 AM PEER FINANCIAL COUNSELOR Office Visit [facility] - ENT [address] [place] [phone] Myra Farmer, ICT SYSTEMS TEST ENGINEER [address] [place] [address] 2L [place] [phone] 07/26/2024 11:15 AM PEER FINANCIAL COUNSELOR Office Visit [facility] - ENT [address] [place] [phone] Neri Delgado MD [address] [place] [address] 08/02/2024 2:20 PM PEER FINANCIAL COUNSELOR Appointment [facility] [address] [place] [address] 08/02/2024 3:00 PM PEER FINANCIAL COUNSELOR Office Visit [facility] - Hematology/Oncology [address] [place] [phone] Remi Beckett MD [address] [place] [phone] 08/18/2024 1:45 PM PEER FINANCIAL COUNSELOR Office [facility] - ENT [address] [place] [phone] Neri Delgado MD [address] [place] [address] documented as of this encounter Visit Diagnoses Not on filedocumented in this encounter Care Teams Torpedo Shooter Relationship Specialty Start Date End Date Eliane Tillman MD [facility] [place] [phone] PCP - General 05/11/22 06/09/22 Joseph Manzanares MD [address] [place] [phone] PCP - General Internal Medicine 06/10/22 07/14/22 Taniya Grimes MD [address] [place] [address] DIV OF [facility] [place] [address] PCP - General 07/15/22 10/06/22 Adriana Adams DO [address] [place] [address] Resident - PCP Internal Medicine 04/06/22 01/12/23 documented as of this encounter
--- OUTSIDE RECORDS SUMMARY | 2024-07-23 07:14 | XMS_ITS | Encounter Summary ---
Author Organization [facility] Health Address [address] [facility] [place] [address] Care Team Providers Care Shoemaker Apprentice Name Role Phone Taniya Grimes MD Primary Care Provider Adriana Adams DO Unavailable Encounter Details Date Type Department Care Team (Latest Contact Info) Description 05/01/2022 1:08 PM CDT - 05/01/2022 11:59 PM CDT Hospital Encounter [facility] OP DRAW STATION [address] [place] [phone] Discharge Disposition: Home or Self Care Social [...] A DAY 60 capsule 11 02/22/2022 05/28/2023 [id number] PO Take by mouth once daily 06/13/2023 [...] fluticasone propionate (FLONASE) 50 MCG/ACT nasal spray [place] 2 (two) sprays into each nostril once daily 48 g 10/20/2021 11/25/2022 gabapentin (Neurontin) 300 MG capsuleIndications:Nicole stahl osteoarthritis of left hip Take 1 (one) capsule by mouth 3 times daily 90 capsule 5 04/06/2022 11/19/2022 [id number]-IAL-C -HYAL PO Take 1 tablet by mouth 3 times daily 06/13/2023 levothyroxine (SYNTHROID) 112 MCG tabletIndications:Post operative hypothyroidism Take 1 (one) tablet by mouth once daily 90 tablet 4 10/08/2021 07/06/2022 methylPREDNISolone (Medrol Dosepak) 4 MG tablet Take by mouth as directed Follow package insert dosing for six day supply. 21 tablet 04/10/2022 09/14/2022 [facility] Natural Products (NEURIVA PO) Take 2 capsules by mouth every morning 09/14/2022 nicotine (NICODERM CQ) 14 MG/24HR patchIndications:Tobac co use disorder Apply 1 (one) patch to skin once daily 30 patch 6 10/29/2021 10/21/2022 pantoprazole EC (PROTONIX) 40 MG tabletIndications:Justo roesophageal [...] st Contact Info) Description 07/25/2024 10:00 AM PSYCHOLOGIST SOCIAL Office Visit [facility] - Endocrinology [address] [place] [address], [facility] [place] [address] Yosi Bustamante MD [address] [place] [address] [place] [address] 07/26/2024 10:00 AM PSYCHOLOGIST SOCIAL Appointment [facility] DIAGNOSTIC RAD [address] [place] [address] Neri Delgado MD [address] [place] [address] 07/26/2024 10:00 AM PSYCHOLOGIST SOCIAL Office Visit [facility] - ENT [address] [place] [phone] Myra Farmer, PSYCHIATRIC TECHNICIAN ASSISTANT [address] [place] [address] [place] [phone] 07/26/2024 11:15 AM PSYCHOLOGIST SOCIAL Office Visit [facility] - ENT [address] [place] [phone] Neri Delgado MD [address] [place] [address] 08/02/2024 2:20 PM PSYCHOLOGIST SOCIAL Appointment [facility] CENTER [address] [place] [address] 08/02/2024 3:00 PM PSYCHOLOGIST SOCIAL Office Visit [facility] Group - Hematology/Oncology [address] [place] [phone] Remi Beckett MD [address] [place] [phone] 08/18/2024 1:45 PM PSYCHOLOGIST SOCIAL Office Visit [facility] - ENT [address] [place] [phone] Neri Delgado MD [address] [place] [address] documented as of this encounter Procedures Procedure Name Priority Date/Time Associated Diagnosis Comments THYROGLOBULIN REFLEX PROFILE Routine 05/01/2022 1:17 PM CDT Postoperative hypothyroidism Thyroid cancer (HCC) Hypocalcemia Other hypoparathyroidism (CMS/HCC) THYROGLOBULIN BY ANTONIETA RFLXED Routine 05/01/2022 1:17 PM CDT Postoperative hypothyroidism Thyroid cancer (HCC) Hypocalcemia Other hypoparathyroidism (CMS/HCC) TSH REFLEX FREE T4 Routine 05/01/2022 1: 17 PM CDT Postoperative hypothyroidism Thyroid cancer (HCC) Hypocalcemia Other hypoparathyroidism (CMS/HCC) VITAMIN D 25-HYDROXY Routine 05/01/2022 1:17 PM CDT Postoperative hypothyroidism Thyroid cancer (HCC) Hypocalcemia Other hypoparathyroidism (CMS/HCC) RENAL FUNCTION PANEL Routine 05/01/2022 1:17 PM CDT Postoperative hypothyroidism Thyroid cancer (HCC) Hypocalcemia Other hypoparathyroidism (CMS/HCC) documented in this encounter Results * (ABNORMAL) THYROGLOBULIN BY ANTONIETA RFLXED (05/01/2022 1:17 PM CDT) [facility] Thyroglobulin by ANTONIETA 151.8(H) 1.5 - 38.5 ng/mL 05/05/2022 1:06 AM CDT [facility] ([facility]) Comment: According to the National Academy of [...] is 0.1 ng/mL Thyroglobulin measured by Lisbet Thurmont Immunometric Assay Blood BLOOD SPECIMEN / Unknown Lab Venipuncture / Unknown 05/01/2022 1:17 PM CDT 05/01/2022 1:42 PM CDT [facility] ([facility]) - 05/05/2022 1:06 AM CDT Performed at: ??01 - [facility], [place], [place] ??[id number] Trade Manager: Oral Melendez PhD, Phone: ??[phone] Yosi Bustamante MD LAB - CHEMISTRY ORD ERABLES Performing Organization Address [facility] Co de Phone Number [facility] ([facility]) [address] [place] [address] * THYROGLOBULIN REFLEX PROFILE (05/01/2022 1:17 PM CDT) Thyroglobulin Antibody <1.0 0.0 - 0.9 IU/mL 05/05/2022 1:06 AM CDT [facility] ([facility]) Comment:Thyroglobulin Antibo dy measured by Lisbet Marcos Methodology Blood BLOOD SPECIMEN / Unknown Lab Venipuncture / Unknown 05/01/2022 1:17 PM CDT 05/01/2022 1:42 PM CDT Narrative [facility] ([facility]) - 05/05/2022 1:06 AM CDT Performed at: ??01 - [facility] [address] [place], [place] ??[id number] Trade Manager: Oral Melendez PhD, Phone: ??[phone] Yosi Bustamante MD LAB - CHEMISTRY ORD HeavyBLES Performing Organization Address [facility] de Phone Number [facility]) [address] [place] [address] * VITAMIN D 25-HYDROXY (05/01/2022 1:17 PM CDT) Vitamin D, 25 Hydroxy 31.0 30.0 - 80.0 ng/mL 05/01/2022 2:38 PM CDT [facility] Comment: The recommendations for 25-Hydroxy [...] SPECIMEN / Unknown Lab Venipuncture / Unknown 05/01/2022 1:17 PM CDT 05/01/2022 1:51 PM CDT Yosi Bustamante MD LAB - CHEMISTRY ORD ERABLES [facility] [address] [place] [address], [facility] [phone] * (ABNORMAL) RENAL FUNCTION PANEL (05/01/2022 1:17 PM CDT) BUN 24 7 - 26 mg/dL 05/01/2022 2:20 PM [facility] Creatinine 1.05(H) 0.56 - 0.96 mg/dL 05/01/2022 2:20 PM [facility] Sodium 135(L) 136 - 145 mmol/L 05/01/2022 2:20 PM [facility] Potassium 4.3 3.5 - 4.5 mmol/L 05/01/2022 2:20 PM [facility] Chloride 99 98 - 107 mmol/L 05/01/2022 2:20 PM [facility] CO2 25 22 - 29 mmol/L 05/01/2022 2:20 PM [facility] Glucose 97 70 - 115 mg/dL 05/01/2022 2:20 PM [facility] Albumin 4.0 3.4 - 5.0 g/dL 05/01/2022 2:20 PM [facility] Calcium 9.3 8.4 - 10.2 mg/dL 05/01/2022 2:20 PM [facility] Phosphorus 5.1 2.9 - 5.1 mg/dL 05/01/2022 2:20 PM CDT [facility] Anion Gap 15 8 - 18 05/01/2022 2:20 PM CDT [facility] BUN/Creatinine Ratio 23 7 - 23 05/01/2022 2:20 PM CDT [facility] Osmolality Calculated 284 270 - 300 mOsm/kg 05/01/2022 2:20 PM CDT [facility] eGFR by CKD-EPI 60(L) >=90 mL/min/1.7 3 m2 05/01/2022 2:20 PM CDT [facility] Blood BLOOD SPECIMEN / Unknown Lab Venipuncture / Unknown 05/01/2022 1:17 PM CDT 05/01/2022 1:51 PM CDT Yosi Bustamante MD LAB - CHEMISTRY ORD ERABLES Performing Organization Address City/[facility]/ZIP Co de Phone Number [address] [address], [facility] [phone] * TSH REFLEX FREE T4 (05/01/2022 1:17 PM CDT) TSH 0.769 0.350 - 4.940 uIU/mL 05/01/2022 2:38 PM CDT [facility] Blood BLOOD SPECIMEN / Unknown Lab Venipuncture / Unknown 05/01/2022 1:17 PM CDT 05/01/2022 1:51 PM CDT Yosi Bustamante MD LAB - CHEMISTRY ORD ERABLES [address] [address], [facility] [phone] documented in this encounter Visit Diagnoses Diagnosis Postoperative hypothyroidism- Primary Postsurgical hypothyroidism Thyroid cancer (HCC) Malignant neoplasm of thyroid gland Hypocalcemia Other hypoparathyroidism (HCC) documented in this encounter Care Teams Shoemaker Apprentice Relationship Specialty Start Date End Date Taniya Grimes MD [address] [place] [address] OF [facility] [place] [phone] PCP - General 07/01/20 05/10/22 Adriana Adams DO [address] [place] [phone] Resident - PCP Internal Medicine 04/06/22 01/12/23 documented as of this encounter
--- OUTSIDE RECORDS SUMMARY | 2024-07-23 07:14 | XMS_ITS | Encounter Summary ---
Author Organization [facility] Health Address [address] [facility] [place] [address] Care Team Providers Care Director Of Preclinical Research Name Role Phone Taniya Grimes MD Primary Care Provider Rocio Barcenas MD Unavailable Encounter Details Date Type Department Care Team (Latest Contact Info) Description 02/27/2022 12:43 PM CDT - 02/27/2022 11:59 PM CDT Hospital Encounter [facility] CSM [address]L [address] [facility] [place] [address] Kami Willingham, PABetoC [address] [facility] 1L - DOOR 3,4 [place] [phone] Discharge Disposition: Home or Self Care Social [...] A DAY 60 capsule 11 02/22/2022 05/28/2023 [id number] PO Take by mouth once daily 06/13/2023 [...] fluticasone propionate (FLONASE) 50 MCG/ACT nasal spray Traver 2 (two) sprays into each nostril once daily 48 g 10/20/2021 11/25/2022 gabapentin (NEURONTIN) 300 MG capsuleIndications:Nicole favio osteoarthritis of left hip TAKE 1 CAPSULE BY MOUTH THREE TIMES A DAY 90 capsule 5 10/08/2021 04/06/2022 CJNLAR-[id number]-FOF-C -HYAL PO Take 1 tablet by mouth [...] Contact Info) Description 07/25/2024 10:00 AM DIRECTOR DATA ANALYTICS Office [facility] Endocrinology [address] [place] [address], [facility] [place] [address] Yosi Bustamante MD [address] [place] [address] 2L [place] [address] 07/26/2024 10:00 AM DIRECTOR DATA ANALYTICS Appointment [facility] [address] [place] [phone] Neri Delgado MD [address] [place] [address] 07/26/2024 10:00 AM DIRECTOR DATA ANALYTICS Office Visit [facility] - ENT [address] [place] [phone] Myra Farmer, BEEF SPECIALIST [address] [place] [address] 2L [place] [phone] 07/26/2024 11:15 AM DIRECTOR DATA ANALYTICS Office Visit [facility] - ENT [address] [place] [phone] Neri Delgado MD [address] [place] [address] 08/02/2024 2:20 PM DIRECTOR DATA ANALYTICS Appointment [facility] [address] [place] [address] 08/02/2024 3:00 PM DIRECTOR DATA ANALYTICS Office Visit [facility] - Hematology/Oncology [address] [place] [phone] Remi Beckett MD [address] [place] [phone] 08/18/2024 1:45 PM DIRECTOR DATA ANALYTICS Office Visit [facility] - ENT [address] [place] [address] [phone] Neri Delgado MD [address] [place] [address] documented as of this encounter Procedures Procedure Name Priority Date/Time Associated Diagnosis Comments XR SHOULDER LEFT 2VW OR MORE Routine 02/27/2022 12:56 PM CDT Left shoulder pain, unspecified chronicity documented in this encounter Results * XR SHOULDER LEFT 2VW OR MORE (02/27/2022 12:56 PM CDT) Anatomical Region Laterality Modality Upper Extremity Radiographic Ewa ging 02/27/2022 1:1 6 PM CDT Impressions 02/27/2022 1:23 PM CDT IMPRESSION: Mild osteoarthritis changes. > Interpreting Provider: Nico Du MD on 02/27/2022 1:23 PM Narrative 02/27/2022 1:23 PM CDT PROCEDURE: ??XR SHOULDER LEFT 2VW OR MORE, DATE/TIME OF EXAM: ??02/27/2022 12:57 PM, LOCATION ??[facility] INDICATION: M25.512: Left shoulder pain, unspecified chronicity ADDITIONAL CLINICAL INFORMATION: Ordering Provider Reason For Exam: ??left shoulder pain Technologist Note: Additional: COMPARISON: PET/CT 12/25/2021. FINDINGS: No fracture or dislocation is present. There is mild osteoarthritis at the acromioclavicular and glenohumeral joints. The bones are slightly osteopenic. Surgical clips are visible in the neck and at the thoracic inlet. Procedure Note Nico Du MD - 02/27/2022 PROCEDURE: XR SHOULDER LEFT 2VW OR MORE, DATE/TIME OF EXAM: 02/27/2022 12:57 PM, LOCATION [facility] INDICATION: M25.512: Left shoulder pain, unspecified chronicity ADDITIONAL CLINICAL INFORMATION: Ordering Provider Reason For Exam: left shoulder pain Technologist Note: Additional: COMPARISON: PET/CT 12/25/2021. FINDINGS: No fracture or dislocation is present. There is mild osteoarthritis atthe acromioclavicular and glenohumeral joints. The bones are slightly osteopenic. Surgical clips are visible in the neck and at the thoracic inlet. IMPRESSION: Mild osteoarthritis changes. > Interpreting Provider: Nico Du MD on 02/27/2022 1:23 PM Kami Willingham PA-C DIAGNOSTIC IMAGING O RDERABLES documented in this encounter Visit Diagnoses Diagnosis Left shoulder pain, unspecified chronicity documented in this encounter Care Teams Director Of Preclinical Research Relationship Specialty Start Date End Date Taniya Grimes MD [address] [place] [address] PCP - General 07/01/20 05/10/22 Rocio Barcenas MD [address] [place] [phone] Resident - PCP Internal Medicine 01/12/22 04/05/22 documented as of this encounter
--- OUTSIDE RECORDS SUMMARY | 2024-07-23 07:14 | XMS_ITS | Encounter Summary ---
Author Organization [facility] Health Address [address] [place] [address] Care Team Providers Care Rhit Name Role Phone Taniya Grimes MD Primary Care Provider Rocio Barcenas MD Unavailable Encounter Details Date Type Department Care Team (Latest Contact Info) Description 03/29/2022 Travel Social History Tobacco Use Types Packs/Day [...] st Contact Info) Description 07/25/2024 10:00 AM UNDERGROUND SUPERVISOR Office Visit [facility] - Endocrinology [address] [place] [address] Yosi Bustamante MD [address] [place] [address] 2L [place] [address] 07/26/2024 10:00 AM UNDERGROUND SUPERVISOR Appointment [facility] [address] [place] [address] Neri Delgado MD [address] [place] [address] 07/26/2024 10:00 AM UNDERGROUND SUPERVISOR Office Visit [facility] - ENT [address] [place] [phone] Myra Farmer, THREAD GRINDER TOOL [address] [place] [address] 2L [place] [phone] 07/26/2024 11:15 AM UNDERGROUND SUPERVISOR Office Visit [facility] - ENT [address] [place] [phone] Neri Delgado MD [address] [place] [address] 08/02/2024 2:20 PM UNDERGROUND SUPERVISOR Appointment [facility] [address] [place] [address] 08/02/2024 3:00 PM UNDERGROUND SUPERVISOR Office Visit [facility] - Hematology/Oncology [address] [place] [phone] Remi Beckett MD [address] [place] [phone] 08/18/2024 1:45 PM UNDERGROUND SUPERVISOR Office Visit [facility] - ENT [address] [place] [phone] Neri Delgado MD [address] [place] [address] documented as of this encounter Visit Diagnoses Not on filedocumented in this encounter Care Teams Rhit Relationship Specialty Start Date End Date Taniya Grimes MD [address] [place] [address] PCP - General 07/01/20 05/10/22 Rocio Barcenas MD [address] [place] [address] Resident - PCP Internal Medicine 01/12/22 04/05/22 documented as of this encounter
--- OUTSIDE RECORDS SUMMARY | 2024-07-23 07:14 | XMS_ITS | Encounter Summary ---
Author Organization [facility] Health Address [address] [facility] [address] Care Team Providers Care Chart Calculator Name Role Phone Adriana Adams DO Unavailable Eliane Tillman MD Primary Care Provider [phone] Joseph Manzanares MD Primary Care Provider [phone] Reason for Visit * Reason Onset Date Comments Med Question 06/04/2022 Encounter Details Date Type Department Care Team (Late st Contact Info) Description 06/04/2022 Telephone [facility], Diabetes and Metabolism [address] [place] [address], [facility] [place] [address] Yosi Bustamante MD [address] [place] [address] [place] [address] Med Question Social History Tobacco Use Types Packs/Day [...] Coronavirus/COVID-19? No / Unsure 06/25/2022 10:01 AM INSERT MOLDING OPERATOR documented as of this encounter Functional Status [...] encounter Miscellaneous Notes * Telephone Encounter - Sammy Moffett - 06/04/2022 11:28 AM CST Pt called asking if you could send her Thyrogen injection to [facility] at [address] [facility] [address], [place] [address]. -Sammy RT MOLDING OPERATOR documented in this encounter Plan of Treatment Upcoming Encounters Date Type Department Care Team (Late st Contact Info) Description 07/25/2024 10:00 AM INSERT MOLDING OPERATOR Office Visit [facility] - Endocrinology [address] [place] [phone] Yosi Bustamante MD [address] [place] [address] 2L [place] [address] 07/26/2024 10:00 AM INSERT MOLDING OPERATOR Appointment [facility] RAD [address] [place] [phone] Neri Delgado MD [address] [place] [address] 07/26/2024 10:00 AM INSERT MOLDING OPERATOR Office Visit [facility] - ENT [address] [place] [phone] Myra Farmer, BLIND AIDE [address] [place] [address] 2L [place] [phone] 07/26/2024 11:15 AM INSERT MOLDING OPERATOR Office Visit [facility] - ENT [address] [place] [phone] Neri Delgado MD [address] [place] [address] 08/02/2024 2:20 PM INSERT MOLDING OPERATOR Appointment [facility] [address] [place] [address] 08/02/2024 3:00 PM INSERT MOLDING OPERATOR Office Visit [facility] - Hematology/Oncology [address] [place] [phone] Remi Beckett MD [address] [place] [phone] 08/18/2024 1:45 PM INSERT MOLDING OPERATOR Office Visit [facility] - ENT [address] [place] [phone] Neri Delgado MD [address] [place] [address] documented as of this encounter Visit Diagnoses Not on filedocumented in this encounter Care Teams Chart Calculator Relationship Specialty Start Date End Date Eliane Tillman MD [facility] [place] [phone] PCP - General 05/11/22 06/09/22 Joseph Manzanares MD [address] [place] [phone] PCP - General Internal Medicine 06/10/22 07/14/22 Adriana Adams DO [address] [place] [phone] Resident - PCP Internal Medicine 04/06/22 01/12/23 documented as of this encounter
--- OUTSIDE RECORDS SUMMARY | 2024-07-23 07:14 | XMS_ITS | Encounter Summary ---
Author Organization [facility] Address [address] [place] [address] Care Team Providers Care Uke Driver Name Role Phone Taniya Grimes MD Primary Care Provider [phone] Rocio Barcenas MD Unavailable Reason for Visit * Auth/Cert Specialty Diagnoses / Procedures Referred By Yuan robins Referred To Contact Diagnoses Thyroid cancer (HCC) THYROID CANCER Procedures DISSECTION NECK Referral ID Status Reason Start Date Expiration Date Visits Re quested Visits Authorized [id number] 1 1 Encounter Details Date Type Department Care Team (Late st Contact Info) Description 02/05/2022 10:05 AM CDT - 02/05/2022 12:29 PM CDT Surgery [facility] [address] [place] [address] Neri Delgado MD [address] [place] [address] EXCISION RIGHT CENTRAL NECK MASS Surgery Details Date/Time Status Location OR Service Patient Class Case Class Case Type Trauma Case? 02/05/2022 10:05 AM Posted [facility] OR OR 06 ENT Surgery Day Care Panel 1 Procedure LRB Anes Op Region Wound Class Comments EXCISION RIGHT CENTRAL NECK MASS Right General Neck Clean Surgeon Surgeon Role Service Panel Neri Delgado MD Primary ENT 1 Joycelyn Wilcox MD Resident - Assisting ENT 1 Special Needs SUPINE, HAVE THE NIMS AVAILABLE IN THE ROOMDS 02/02 documented in this encounter Social History Tobacco [...] Sign Reading Time Taken Comments Blood Pressure 185/98 02/05/2022 12:25 PM CDT Pulse 76 02/05/2022 12:25 PM CDT Temperature 36.5 ??C (97.7 ??F) 02/05/2022 12:05 PM C DT Respiratory Rate 13 02/05/2022 12:25 PM CDT Oxygen Saturation 100% 02/05/2022 12:25 PM CDT Inhaled Oxygen Concentration - - [...] PO) Take by mouth once daily 12/24/2022 [id number]-KUCU PO Take by mouth once daily 06/13/2023 [...] fluticasone propionate (FLONASE) 50 MCG/ACT nasal spray Shawnee 2 (two) sprays into each nostril once daily 48 g 10/20/2021 11/25/2022 gabapentin (NEURONTIN) 300 MG capsuleIndications:Nicole stahl osteoarthritis of left hip TAKE 1 CAPSULE BY MOUTH THREE TIMES A DAY 90 capsule 5 10/08/2021 04/06/2022 MUQPZW-HOJQMAMVB-JYY-C -HYAL PO Take 1 tablet by mouth [...] concerns at this time. [facility] Pt PIV removed. Per report from Yessenia FERRIS in PACU pt tolerated po ice chips and water. Pt taken to the bathroom per wheelchair. Pt has all belongings. [facility] with . * [...] questions, please contact the outpatient pharmacy at [phone]. Mary Beth Gonzalez CPhT [facility] [address] [facility], First Floor [place], [place] [address] Hours of Operation Wednesday - Wednesday: 8:00am to 6:00pm Wednesday: 9:00am to 1:00pm Epic: [facility] *Ensure the patient and clinic's nearby [...] fluticasone propionate (FLONASE) 50 MCG/ACT nasal spray Shawnee 2 (two) sprays into each nostril once daily 48 g 0 ??? gabapentin (NEURONTIN) 300 MG capsule TAKE 1 CAPSULE BY MOUTH THREE TIMES A DAY 90 capsule 5 ??? [id number]-UCLWHWLSQ-HAF-C-HYAL PO Take 1 tablet by mouth 3 [...] relevant cultures or biopsies. ASSESSMENT & PLAN Brisa Caicedo is a 61 year old female with aggressive PTC ([id number]) s/p thyroidectomy, tracheal resection/reanastamosis, bilateral neck dissections [...] 10 mL DISPOSITION: Home. Neri Delgado MD SM/gabriella .[id number] Doc ID: [id number] Voice Job ID: [id number] * Brief Op Note - Joycelyn Wilcox MD - 02/05/2022 11:03 AM CDT Brief Op Note Procedure: EXCISION RIGHT CENTRAL NECK MASS Patient Name: Brisa Caicedo Date of Service: 02/05/2022 Pre-Op Diagnosis: THYROID CANCER Post-Op Diagnosis: same Surgeon(s) and Role: * Neri Delgado MD - Primary * Joycelyn Wilcox MD - Resident - Assisting Flight Crew Ordnanceman(s): none Anesthesia Type: general ETT Complications: none [...] Contact Info) Description 07/25/2024 10:00 AM GLASS SILVERER Office Visit [facility] - Endocrinology [address] [place] [phone] Yosi Bustamante MD [address] [place] [address] 2L [place] [address] 07/26/2024 10:00 AM GLASS SILVERER Appointment [facility] [address] [place] [address] Neri Delgado MD [address] [place] [address] 07/26/2024 10:00 AM GLASS SILVERER Office Visit [facility] - ENT [address] [place] [phone] Myra Farmer, SQL SSRS SSIS DEVELOPER [address] [place] [address] 2L [place] [phone] 07/26/2024 11:15 AM GLASS SILVERER Office Visit [facility] - ENT [address] [place] [address], [place] [phone] Neri Delgado MD [address] [place] [address] 08/02/2024 2:20 PM GLASS SILVERER Appointment [facility] [address] [place] [address] 08/02/2024 3:00 PM GLASS SILVERER Office Visit [facility] - Hematology/Oncology [address] [place] [phone] Remi Beckett MD [address] [place] [address] 08/18/2024 1:45 PM GLASS SILVERER Office Visit [facility] - ENT [address] [place] [phone] Neri Delgado MD [facility] [place] [address] documented as of this encounter Procedures Procedure Name Priority Date/Time Associated Diagnosis Comments PATHOLOGY TISSUE Routine 02/05/2022 11:2 4 AM CDT Thyroid cancer (HCC) DISSECTION NECK 02/05/2022 11:03 AM CDT Thyroid cancer (HCC) Special Needs SUPINE, HAVE THE NIMS AVAILABLE IN THE ROOMDS 02/02 documented in this encounter Results * PATHOLOGY TISSUE (02/05/2022 11:24 AM CDT) Case Report Surgical Pathology Report ? Case: [id number] ? Authorizing Provider: ??Neri Delgado MD ?Collected: ? 02/05/2022 11:24 AM ? Ordering Location: ? [facility] ?Received: ?02/05/2022 01:03 PM ? Pathologist: ? Munira Chavez MD ? Specimens: ?? A) - Neck, right central neck mass ? B) - Neck, additional tissue over thyroid cartilage ? 12/27/2023 9:39 AM [facility] Final Diagnosis Soft tissue, right central neck mass, excision (A): - Recurrent/residual papillary thyroid carcinoma (1.7 cm), infiltrating skeletal muscle - Margins free of malignancy (0.2 cm) Soft tissue, additional tissue over thyroid cartilage, excision (B): - Benign skeletal muscle 12/27/2023 9:39 AM [facility] Microscopic Description and Comment The sections show nests of neoplastic cells with nuclear clearing and grooves, crowding and overlapping that form papillary and follicular architecture. These sections were compared with the sections from the patient's prior hemithyroidectomy ([id number]). These findings best represent recurrence of the patient's known papillary thyroid carcinoma. 12/27/2023 9:39 AM [facility] Clinical History The patient is a 61-year-old female with a history of locally advance papillary thyroid and an enhancing right central neck mass. Operative procedures/findings: excision of neck mass- palpable tumor approximately 1 cm overlying the thyroid cartilage. 12/27/2023 9:39 AM [facility] Gross Description The requisition [...] is submitted B1. SP 12/27/2023 9:39 AM [facility] Addendum 1 A request for xT solid tumor sequencing, PD-L1 22C3, and MMR IHC was received 12/10/23 for patient Brisa Benavidesord from Dr. Remi Beckett. The test is to be performed on tissue from case [id number]. The case report, slides, and blocks for the cited accession were retrieved from the archives. The pathologist whose signature appears below reviewed the original pathology report, examined candidate H&E slides, and selected the block (A1) appropriate to the specifications of the ordered molecular analysis. The tissue was forwarded to [facility] where the subject molecular tests will be performed. 12/27/2023 9:39 AM [facility] Addendum electronically signed by Munira Chavez MD on 12/13/2023 at 1:32 PM Addendum 2 A second [facility] request was received 12/24/23. 12/27/2023 9:39 AM [facility] Addendum electronically signed by Munira Chavez MD on 12/27/2023 at 9:39 AM Disclaimer The performance characteristics of all immunohistochemical and indirect immunofluorescence stains (if any) cited in this report were determined by the [facility]opathology [facility] of [facility]. Some of these tests were developed [...] the attending (teaching) pathologist. 12/27/2023 9:39 AM CDT [facility] Embedded Images 12/27/2023 9:39 AM CDT [facility] Biopsy, Excision ENTIRE NECK / Unknown 02/05/2022 11:24 AM CDT 02/05/2022 1:03 PM CDT Comment:Pre-op diagnosis: THYROID CANCER Biopsy, Excision ENTIRE NECK / Unknown 02/05/2022 11:29 AM CDT 02/05/2022 1:03 PM CDT Comment:Pre-op diagnosis: THYROID CANCER Neri Delgado MD LAB - PATHOLOGY/CYTO LOGY ORDERABLES Performing Organization Address City/State/[facility] [place] nm Phone Number [facility] [address] [phone] documented in this encounter Visit Diagnoses Diagnosis Thyroid cancer (HCC) Malignant neoplasm of thyroid gland Thyroid [...] mg, Intravenous, POST-OP MULTIPLE, Starting on Josi 8/4/22 at 1220, Until [...] 0745, Until Josi 02/05/22 at 1559, Pre-op lidocaine 1% (Xylocaine-MPF) - EPINEPHrine 1:100,000 injection PRN, Starting on Josi 02/05/22 at 1051, Until Josi 02/05/22 at 1205, Intra-op $ Given 02/05/2022 10:51 AM CDT 8 mL Operative Site naloxone (Narcan) injection 0.04 mg 0.04 mg, [...] mg, Intravenous, POST-OP MULTIPLE, Starting on Josi 8 at [...] mg, Intravenous, POST-OP MULTIPLE, Starting on Josi 8 at 1220, Until Josi 8 at 1559, Notify physician immediately, and mix [...] PACU 1225 ($ Given - Prov ider: CODY Laurent) fentaNYL (PF) (Sublimaze) injection 50 mcg 50 [...] PACU 1210 ($ Given - Prov ider: CODY Laurent) lidocaine 1% (Xylocaine-MPF) - EPINEPHrine 1:100,000 injection (CANCELED) PRN, Starting on Josi 02/05/22 at 1051, Until Josi 8 at 1205, Intra-op 1051 ($ Given - Prov ider: Neri Delgado MD) ondansetron (Zofran) injection 4 mg 4 mg, Intravenous, ONCE PRN, Nausea/Vomiting, 1 dose, Starting on Josi 02/05/22 at 1220, Until Jois 8 at 1559, First choice, PACU oxyCODONE (immediate [...] MAR. documented in this encounter Care Teams Uke Driver Relationship Specialty Start Date End Date Taniya Grimes MD [address] [place] [address] PCP - General 07/01/20 05/10/22 Rocio Barcenas MD [address] [facility] [place] [address] Resident - PCP Internal Medicine 01/12/22 04/05/22 documented as of this encounter
--- OUTSIDE RECORDS SUMMARY | 2024-07-23 07:14 | XMS_ITS | Encounter Summary ---
Author Organization [facility] Health Address [address] [place] [address] Care Team Providers Care Communication Analyst Name Role Phone Adriana Adams DO Unavailable Eliane Tillman MD Primary Care Provider [phone] Reason for Visit * Reason Onset Date Comments Surgery Consult 05/21/2022 Encounter Details Date Type Department Care Team (Late st Contact Info) Description 05/21/2022 Telephone [facility] [address] [place] [address] Radha Garcia, continuous towel roller Consult Social History Tobacco Use Types Packs/Day [...] Miscellaneous Notes * Telephone Encounter - Radha Garcia RN - 05/21/2022 9:55 AM CST Called Brisa Hogan about discussing surgery and appropriate paperwork. Patient needs surgical clearances from medical and dental. Will mail a copy of those and the surgical packet to patient if they have not called back by end of day. Radha Garcia RECOIL SPRING WINDER Total Joint Reconstruction Dept of Orthopedic Surgery [facility] Email: [email or web address] MOTIVE HEAVY MECHANIC documented in this encounter Plan of Treatment Upcoming Encounters Date Type Department Care Team (Late st Contact Info) Description 07/25/2024 10:00 AM AUTOMOTIVE HEAVY MECHANIC Office Visit [facility] - Endocrinology [address] [place] [address] [phone] oYsi Bustamante MD [address] [place] [address] 2L Div [place] [address] 07/26/2024 10:00 AM AUTOMOTIVE HEAVY MECHANIC Appointment [facility] [address] [place] [phone] Neri Delgado MD [address] [place] [address] 07/26/2024 10:00 AM AUTOMOTIVE HEAVY MECHANIC Office Visit [facility] - ENT [address] [place] [address] [phone] Myra Farmer, ZAIN [address] [place] [address] 2L [place] [phone] 07/26/2024 11:15 AM AUTOMOTIVE HEAVY MECHANIC Office Visit [facility] - ENT [address] [place] [address] [phone] Neri Delgado MD [address] [place] [address] 08/02/2024 2:20 PM AUTOMOTIVE HEAVY MECHANIC Appointment [facility] [address] [place] [address] 08/02/2024 3:00 PM AUTOMOTIVE HEAVY MECHANIC Office Visit [facility] - Hematology/Oncology [address] [place] [address] [phone] Remi Beckett MD [address] [place] [phone] 08/18/2024 1:45 PM AUTOMOTIVE HEAVY MECHANIC Office Visit [facility] - ENT [address] [place] [address] [phone] Neri Delgado MD [address] [place] [address] documented as of this encounter Visit Diagnoses Not on filedocumented in this encounter Care Teams Communication Analyst Relationship Specialty Start Date End Date Eliane Tillman MD [facility] [place] [phone] PCP - General 05/11/22 06/09/22 Adriana Adams DO [address] [place] [phone] Resident - PCP Internal Medicine 04/06/22 01/12/23 documented as of this encounter
--- OUTSIDE RECORDS SUMMARY | 2024-07-23 07:14 | XMS_ITS | Encounter Summary ---
Author Organization [facility] Health Address [address] [facility] [place] [address] Care Team Providers Care Financial Business Analyst Name Role Phone Taniya Grimes MD Primary Care Provider Rocio Barcenas MD Unavailable Encounter Details Date Type Department Care Team (Latest Contact Info) Description 03/19/2022 12:20 PM CDT - 03/19/2022 11:59 PM CDT Hospital Encounter [facility] DRAW STATION [address] [place] [phone] Discharge Disposition: Home or Self Care Social [...] A DAY 60 capsule 11 02/22/2022 05/28/2023 [id number] PO Take by mouth once daily 06/13/2023 [...] fluticasone propionate (FLONASE) 50 MCG/ACT nasal spray Raymond 2 (two) sprays into each nostril once daily 48 g 10/20/2021 11/25/2022 gabapentin (NEURONTIN) 300 MG capsuleIndications:Nicole stahl osteoarthritis of left hip TAKE 1 CAPSULE BY MOUTH THREE TIMES A DAY 90 capsule 5 10/08/2021 04/06/2022 [id number]-[id number]-C -HYAL PO Take 1 tablet by mouth [...] Contact Info) Description 07/25/2024 10:00 AM SENIOR NET DEVELOPER ARCHITECT Office Visit [facility] - Endocrinology [address] [place] [address], [place] [address] Yosi Bustamante MD [address] [place] [address] [place] [address] 07/26/2024 10:00 AM SENIOR NET DEVELOPER ARCHITECT Appointment [facility] [address] [place] [phone] Neri Delgado MD [address] [place] [address] 07/26/2024 10:00 AM SENIOR NET DEVELOPER ARCHITECT Office Visit [facility] - ENT [address] [place] [address] [phone] Myra Farmer, CHIEF HOSPITAL ADMINISTRATOR [address] [place] [address] [place] [phone] 07/26/2024 11:15 AM SENIOR NET DEVELOPER ARCHITECT Office Visit [facility] - ENT [address] [place] [address] [phone] Neri Delgado MD [address] [place] [address] 08/02/2024 2:20 PM SENIOR NET DEVELOPER ARCHITECT Appointment [facility] [address] [place] [address] 08/02/2024 3:00 PM SENIOR NET DEVELOPER ARCHITECT Office Visit [facility] - Hematology/Oncology [address] [place] [address] [phone] Remi Beckett MD [address] [place] [phone] 08/18/2024 1:45 PM SENIOR NET DEVELOPER ARCHITECT [facility] [address] [place] [address] [phone] Neri Delgado MD [address] [place] [address] documented as of this encounter Procedures Procedure Name Priority Date/Time Associated Diagnosis Comments THYROGLOBULIN REFLEX PROFILE Routine 03/19/2022 12:31 PM CDT Postoperative hypothyroidism Thyroid cancer (HCC) Hypocalcemia Other hypoparathyroidism THYROGLOBULIN BY ANTONIETA RFLXED Routine 03/19/2022 12:31 PM CDT Postoperative hypothyroidism Thyroid cancer (HCC) Hypocalcemia Other hypoparathyroidism TSH REFLEX FREE T4 Routine 03/19/2022 12 :31 PM CDT Thyroid cancer (HCC) Hypocalcemia Other hypoparathyroidism Postoperative hypothyroidism RENAL FUNCTION PANEL Routine 03/19/2022 12:31 PM CDT Postoperative hypothyroidism Thyroid cancer (HCC) Hypocalcemia Other hypoparathyroidism T4 FREE Routine 03/19/2022 12:31 PM CDT Thyroid cancer (HCC) Hypocalcemia Other hypoparathyroidism Postoperative hypothyroidism documented in this encounter Results * (ABNORMAL) THYROGLOBULIN BY ANTONIETA RFLXED (03/19/2022 12:31 PM CDT) Thyroglobulin by ANTONIETA 71.9(H) 1.5 - 38.5 ng/mL 03/21/2022 12:06 AM CDT [facility] ([facility]) Comment: According to the National Academy [...] is 0.1 ng/mL Thyroglobulin measured by Lisbet Guilford Immunometric Assay Blood BLOOD SPECIMEN / Unknown Lab Venipuncture / Unknown 03/19/2022 12:31 PM CDT 03/19/2022 1:04 PM CDT Narrative [facility] ([facility]) - 03/21/2022 12:06 AM CDT Performed at: ??01 - [facility] [address] [place], [place] ??[id number] Glassware Maker Demonstrator: Oral Melendez PhD, Phone: ??[phone] Yosi Bustamante MD LAB - CHEMISTRY ORD ERABLES [facility] ([facility]) [address] [place] [address] * T4 FREE (03/19/2022 12:31 PM CDT) T4 Free 1.1 0.7 - 1.5 ng/dL 03/19/2022 2:26 PM [facility] Blood BLOOD SPECIMEN / Unknown Lab Venipuncture / Unknown 03/19/2022 12:31 PM CDT 03/19/2022 1:05 PM CDT Yosi Bustamante MD LAB - CHEMISTRY ORD ERABLES [facility] [address] [place] [address], [facility] [phone] * (ABNORMAL) RENAL FUNCTION PANEL (03/19/2022 12:31 PM CDT) Pathologist [facility] BUN 14 7 - 26 mg/dL 03/19/2022 1:36 PM [facility] Creatinine 0.81 0.56 - 0.96 mg/dL 03/19/2022 1:36 PM [facility] Sodium 140 136 - 145 mmol/L 03/19/2022 1:36 PM [facility] Potassium 4.2 3.5 - 4.5 mmol/L 03/19/2022 1:36 PM [facility] Chloride 103 98 - 107 mmol/L 03/19/2022 1:36 PM [facility] CO2 25 22 - 29 mmol/L 03/19/2022 1:36 PM [facility] Glucose 94 70 - 115 mg/dL 03/19/2022 1:36 PM [facility] Albumin 4.0 3.4 - 5.0 g/dL 03/19/2022 1:36 PM [facility] Calcium 8.9 8.4 - 10.2 mg/dL 03/19/2022 1:36 PM [facility] Phosphorus 4.9 2.9 - 5.1 mg/dL 03/19/2022 1:36 PM [facility] Anion Gap 16 8 - 18 03/19/2022 1:36 PM [facility] BUN/Creatinine Ratio 17 7 - 23 03/19/2022 1:36 PM CDT [facility] Osmolality Calculated 290 270 - 300 mOsm/kg 03/19/2022 1:36 PM CDT [facility] eGFR by CKD-EPI 82(L) >=90 mL/min/1.7 3 m2 03/19/2022 1:36 PM CDT [facility] Blood BLOOD SPECIMEN / Unknown Lab Venipuncture / Unknown 03/19/2022 12:31 PM CDT 03/19/2022 1:05 PM CDT Yosi Bustamante MD LAB - CHEMISTRY ORD ERABLES [facility] [address] [place] [address], [facility] [phone] * THYROGLOBULIN REFLEX PROFILE (03/19/2022 12:31 PM CDT) Thyroglobulin Antibody <1.0 0.0 - 0.9 IU/mL 03/21/2022 12:06 AM CDT [facility] ([facility]) Comment:Thyroglobulin Antibo dy measured by Lisbet Guilford Methodology Blood BLOOD SPECIMEN / Unknown Lab Venipuncture / Unknown 03/19/2022 12:31 PM CDT 03/19/2022 1:04 PM CDT Narrative [facility] ([facility]) - 03/21/2022 12:06 AM CDT Performed at: ??01 - [facility] [address] [place], [place] ??[id number] Glassware Maker Demonstrator: Oral Melendez PhD, Phone: ??[phone] Yosi Bustamante MD LAB - CHEMISTRY ORD ERABLES [facility] ([facility]) [address] [place] [address] * (ABNORMAL) TSH REFLEX FREE T4 (03/19/2022 12:31 PM CDT) TSH 0.261(L) 0.350 - 4.940 uIU/mL 03/19/2022 1:54 PM CDT [facility] Blood BLOOD SPECIMEN / Unknown Lab Venipuncture / Unknown 03/19/2022 12:31 PM CDT 03/19/2022 1:05 PM CDT Yosi Bustamante MD LAB - CHEMISTRY ORD ERABLES [facility] [address] [place] [address], [facility] [phone] documented in this encounter Visit Diagnoses Diagnosis Thyroid cancer (HCC)- Primary Malignant neoplasm of thyroid gland Hypocalcemia Other hypoparathyroidism (HCC) Postoperative hypothyroidism Postsurgical hypothyroidism documented in this encounter Care Teams Financial Business Analyst Relationship Specialty Start Date End Date Taniya Grimes MD [address] [place] [phone] PCP - General 07/01/20 05/10/22 Rocio Barcenas MD [address] [place] [phone] Resident - PCP Internal Medicine 01/12/22 04/05/22 documented as of this encounter
--- OUTSIDE RECORDS SUMMARY | 2024-07-23 07:14 | XMS_ITS | Encounter Summary ---
Author Organization [facility] Health Address [address] [facility] [place] [address] Care Team Providers Care Makeup Editor Name Role Phone Taniya Grimes MD Primary Care Provider Rocio Barcenas MD Unavailable Reason for Visit * Reason Comments Refill Request Encounter Details Date Type Department Care Team (Late st Contact Info) Description 02/20/2022 Refill [facility], Diabetes and Metabolism [address] [place] [address], [place] [phone] Yosi Bustamante MD [address] [place] [address] of [place], [place] [phone] Refill Request Social History Tobacco Use Types [...] Telephone Encounter - Kassie Rand RN - 02/20/2022 4:06 PM CDT Refill Request Brisa Hogan ELE: 12/08/21 NOV scheduled: 06/12/2022 LRF: 10/14/20 Qty Disp: 60 # of refills: 11 Allergies: Allergies Allergen Reactions ??? Kiwi Extract Anaphylaxis ??? Shellfish Allergy Other Passed out after eating lobster but can eat shrimp and crab Pended Medication Order: Requested Prescriptions Pending Prescriptions Disp Refills ??? calcitriol (Rocaltrol) 0.5 MCG capsule [Pharmacy Med Name: CALCITRIOL 0.5 MCG CAPSULE] 60 capsule 11 Sig: TAKE 1 CAPSULE BY MOUTH TWICE A DAY documented in this encounter Plan of Treatment Upcoming Encounters Date Type Department Care Team (Late st Contact Info) Description 07/25/2024 10:00 AM SAP BASIS CONSULTANT [facility] [address] [place] [phone] Yosi Bustamante MD [address] [place] [address] 2L [place] [address] 07/26/2024 10:00 AM SAP BASIS CONSULTANT Appointment [facility] [address] [place] [phone] Neri Delgado MD [address] [address] 07/26/2024 10:00 AM SAP BASIS CONSULTANT Office Visit [facility] - ENT [address] [place] [phone] Myra Farmer, CLOTH EXAMINER HAND [address] [place] [address] 2L [place] [address] 07/26/2024 11:15 AM SAP BASIS CONSULTANT [facility] [address] [place] [phone] Neri Delgado MD [address] [place] [address] 08/02/2024 2:20 PM SAP BASIS CONSULTANT Appointment [facility] [address] [place] [address] 08/02/2024 3:00 PM SAP BASIS CONSULTANT Office Visit [facility] - Hematology/Oncology [address] [place] [phone] Remi Beckett MD [address] [place] [phone] 08/18/2024 1:45 PM SAP BASIS CONSULTANT Office Visit [facility] - ENT [address] [place] [phone] Neri Delgado MD [address] [place] [address] documented as of this encounter Visit Diagnoses Diagnosis Postoperative hypothyroidism Postsurgical hypothyroidism Thyroid cancer (HCC) Malignant neoplasm of thyroid gland Hypocalcemia documented in this encounter Care Teams Makeup Editor Relationship Specialty Start Date End Date Taniya Grimes MD [address] [place] [address] 2L DIV OF [facility] [place] [address] PCP - General 07/01/20 05/10/22 Rocio Barcenas MD [address] [facility] [place] [address] Resident - PCP Internal Medicine 01/12/22 04/05/22 documented as of this encounter
--- OUTSIDE RECORDS SUMMARY | 2024-07-23 07:14 | XMS_ITS | Encounter Summary ---
Author Organization [facility] Health Address [address] [place] [address] Care Team Providers Care Transfer Car Operator Name Role Phone Taniya Grimes MD Primary Care Provider [phone] Adriana Adams DO Unavailable Encounter Details Date Type Department Care Team (Latest Contact Info) Description 05/01/2022 Travel Social History Tobacco Use Types Packs/Day [...] st Contact Info) Description 07/25/2024 10:00 AM IRRIGATOR VALVE PIPE Office Visit [facility] [address] [facility] [place] [address] Yosi Bustamante MD [address] [place] [address] 2L [place] [address] 07/26/2024 10:00 AM IRRIGATOR VALVE PIPE Appointment [facility] [address] [place] [address] Neri Delgado MD [address] [place] [address] 07/26/2024 10:00 AM IRRIGATOR VALVE PIPE Office Visit [facility] - ENT [address] [place] [phone] Myra Farmer, MACHINE II ENGRAVER [address] [place] [address] 2L [place] [phone] 07/26/2024 11:15 AM IRRIGATOR VALVE PIPE Office Visit [facility] - ENT [address] [place] [phone] Neri Delgado MD [address] [place] [address] 08/02/2024 2:20 PM IRRIGATOR VALVE PIPE Appointment [facility] [address] [place] [address] 08/02/2024 3:00 PM IRRIGATOR VALVE PIPE Office Visit [facility] - Hematology/Oncology [address] [place] [phone] Remi Beckett MD [address] [place] [phone] 08/18/2024 1:45 PM IRRIGATOR VALVE PIPE Office Visit [facility] - ENT [address] [place] [phone] Neri Delgado MD [address] [place] [address] documented as of this encounter Visit Diagnoses Not on filedocumented in this encounter Care Teams Transfer Car Operator Relationship Specialty Start Date End Date Taniya Grimes MD [address] [place] [address] PCP - General 07/01/20 05/10/22 Adriana Adams DO [address] [place] [address] Resident - PCP Internal Medicine 04/06/22 01/12/23 documented as of this encounter
--- OUTSIDE RECORDS SUMMARY | 2024-07-23 07:14 | XMS_ITS | Encounter Summary ---
Author Organization [facility] Address [address] [facility] [place] [address] Care Team Providers Care Marketing Senior Recruiter Name Role Phone Taniya Grimes MD Primary Care Provider Rocio Barcenas MD Unavailable Adriana Adams DO Unavailable Eliane Tillman MD Primary Care Provider [phone] Joseph Manzanares MD Primary Care Provider Taniya Grimes MD Primary Care Provider Joseph Manzanares MD Primary Care Provider [phone] Tiana Naylor DO Unavailable [phone] Tiana Naylor DO Primary Care Provider Joseph Manzanares MD Unavailable Yaya Villatoro MD Primary Care Provider [phone] Encounter Details Date Type Department Care Team (Late st Contact Info) Description 02/23/2022 Telephone [facility], Diabetes and Metabolism [address] [place] [address], [place] [phone] Yosi Bustamante MD [address] [place] [address] [place] [address] Social History Tobacco Use Types Packs/Day Years [...] encounter Miscellaneous Notes * Telephone Encounter - June Denise - 02/23/2022 10:30 AM CDT Current Provider name: Dr. Yosi Bustamante Reason for call: Ms. Brisa Hogan needs a FU appt after her surgery 02/04/2022, Your first available is 07/09/2022. Her doctor wants her seen sooner, her next appt with you is 06/12/2022. Please advise. Patient Call Back number: [phone] documented in this encounter Plan of Treatment Upcoming Encounters Date Type Department Care Team (Late st Contact Info) Description 07/25/2024 10:[address] LIGHT WIRER [facility] [address] [place] [address], [place] [phone] Yosi Bustamante MD [address] [place] [address] [place] [address] 07/26/2024 10:[address] LIGHT WIRER Appointment [facility] [address] [place] [phone] Neri Delgado MD [address] [place] [address] 07/26/2024 10:[address] LIGHT WIRER Office Visit [facility] - ENT [address] [place] [phone] Myra Farmer, BUSINESS RISK ANALYST [address] [place] [address] 2L [place] [phone] 07/26/2024 11:[address] LIGHT WIRER [facility] [address] [place] [phone] Neri Delgado MD [address] [place] [address] 08/02/2024 2:[address] LIGHT WIRER Appointment [facility] [address] [place] [address] 08/02/2024 3:[address] LIGHT WIRER Office Visit [facility] Group - Hematology/Oncology [address] [place] [phone] Remi Beckett MD [address] [place] [phone] 08/18/2024 1:[address] LIGHT WIRER Office Visit [facility] - ENT [address] [place] [phone] Neri Delgado MD [address] [place] [address] documented as of this encounter Visit Diagnoses Not on filedocumented in this encounter Care Teams Marketing Senior Recruiter Relationship Specialty Start Date End Date Taniya Grimes MD [address] [place] [address] 2L DIV OF [place] [phone] PCP - General 07/01/20 05/10/22 Eliane Tillman MD [address] [place] [address] PCP - General 05/11/22 06/09/22 Joseph Manzanares MD [address] [place] [phone] PCP - General Internal Medicine 06/10/22 07/14/22 Taniya Grimes MD [address] [place] [phone] PCP - General 07/15/22 10/06/22 Joseph Manzanares MD [address] [place] [address] PCP - General Internal Medicine 10/07/22 04/20/23 Tiana Naylor DO [address] [facility] [place] [address] PCP - General Internal Medicine 04/21/23 05/03/23 Yaya Villatoro MD [address] [phone] PCP - General Internal Medicine 05/04/23 Rocio Barcenas MD [address] [place] [phone] Resident - [facility] Internal Medicine 01/12/22 04/05/22 Adriana Adams DO [address] [place] [phone] Resident - PCP Internal Medicine 04/06/22 01/12/23 Tiana Naylor DO [address] [place] [address] Resident - PCP Internal Medicine 01/13/23 04/20/23 Joseph Manzanares MD [address] [place] [phone] Internal Medicine 04/21/23 documented as of this encounter
--- OUTSIDE RECORDS SUMMARY | 2024-07-23 07:14 | XMS_ITS | Encounter Summary ---
Author Organization [facility] Health Address [address] [facility] [place] [address] Care Team Providers Care Licensing Specialist Name Role Phone Taniya Grimes MD Primary Care Provider Adriana Adams DO Unavailable Encounter Details Date Type Department Care Team (Late st Contact Info) Description 04/06/2022 Orders Only [facility] - [facility]opedics [facility] [facility], [place] [address] Mary Beth Lauren MD [address] [place] [address] [address],4 [place] [address] Left shoulder pain, unspecified chronicity Social History [...] Contact Info) Description 07/25/2024 10:00 AM SENIOR SERVICE AIDE Office Visit [facility] - Endocrinology [address] [place] [phone] Yosi Bustamante MD [address] [place] [address] 2L [place] [address] 07/26/2024 10:00 AM SENIOR SERVICE AIDE Appointment [facility] DI[facility]NOSTIC RAD [address] [place] [phone] Neri Delgado MD [address] [place] [address] 07/26/2024 10:00 AM SENIOR SERVICE AIDE Office [facility] - ENT [address] [place] [phone] Myra Farmer, INTERNAL REVIEW AND AUDIT COMPLIANCE [address] [place] [address] 2L [place] [phone] 07/26/2024 11:15 AM SENIOR SERVICE AIDE Office Visit [facility] - ENT [address] [place] [phone] Neri Delgado MD [address] [place] [address] 08/02/2024 2:20 PM SENIOR SERVICE AIDE Appointment [facility] [address] [place] [address] 08/02/2024 3:00 PM SENIOR SERVICE AIDE Office Visit [facility] - Hematology/Oncology [address] [place] [phone] [place] [address] [place] [phone] 08/18/2024 1:45 PM SENIOR SERVICE AIDE Office Visit [facility] - ENT [address] [place] [address] Neri Delgado MD [address] [place] [address] documented as of this encounter Results * XR SHOULDER LEFT 2VW OR MORE (04/10/2022 1:55 PM CDT) Anatomical Region Laterality Modality Upper Extremity Radiographic Ewa ging 04/10/2022 2:27 PM CDT Impressions 04/10/2022 2:29 PM CDT IMPRESSION: No acute osseous abnormality. > Interpreting Provider: Nico Du MD on 04/10/2022 2:29 PM Narrative 04/10/2022 2:29 PM CDT PROCEDURE: ??XR SHOULDER LEFT 2VW OR MORE, DATE/TIME OF EXAM: ??04/10/2022 1:55 PM, LOCATION ??[facility] INDICATION: M25.512: Left shoulder pain, unspecified chronicity ADDITIONAL CLINICAL INFORMATION: Ordering Provider Reason For Exam: ??pain Technologist Note: Additional: COMPARISON: 02/27/2022 FINDINGS: No fracture or dislocation. Minimal degenerative changes are noted with small osteophytes. A bone island is noted in the glenoid. Clips in the neck. Procedure Note Nico Du MD - 04/10/2022 PROCEDURE: XR SHOULDER LEFT 2VW OR MORE, DATE/TIME OF EXAM: 04/10/2022 1:55 PM, LOCATION [facility] INDICATION: M25.512: Left shoulder pain, unspecified chronicity ADDITIONAL CLINICAL INFORMATION: Ordering Provider Reason For Exam: pain Technologist Note: Additional: COMPARISON: 02/27/2022 FINDINGS: No fracture or dislocation. Minimal degenerative changes are noted with small osteophytes. A bone island is noted in the glenoid. Clips in the neck. IMPRESSION: No acute osseous abnormality. > Interpreting Provider: Nico Du MD on 04/10/2022 2:29 PM Mary Beth Lauren MD DIAGNOSTIC IMAGING O [facility]LES documented in this encounter Visit Diagnoses Diagnosis Left shoulder pain, unspecified chronicity- Primary Left shoulder pain, unspecified chronicity documented in this encounter Care Teams Licensing Specialist Relationship Specialty Start Date End Date Taniya Grimes MD [address] [place] [address] PCP - General 07/01/20 05/10/22 Adriana Adams DO [address] [place] [phone] Resident - PCP Internal Medicine 04/06/22 01/12/23 documented as of this encounter
--- OUTSIDE RECORDS SUMMARY | 2024-07-23 07:14 | XMS_ITS | Encounter Summary ---
Author Organization [facility] Health Address [address] [facility] [place] [address] Care Team Providers Care Skidder Driver Name Role Phone Taniya Grimes MD Primary Care Provider Rocio Barcenas MD Unavailable Encounter Details Date Type Department Care Team (Latest Contact Info) Description 01/30/2022 Travel Social History Tobacco Use Types Packs/Day [...] st Contact Info) Description 07/25/2024 10:00 AM RATE ANALYST Office Visit [facility] - Endocrinology [address] [place] [address] Yosi Bustamante MD [address] [place] [address] 2L [place] [address] 07/26/2024 10:00 AM RATE ANALYST Appointment [facility] DIAG[facility]IC RAD [address] [place] [address] Neri eDlgado MD [address] [place] [address] 07/26/2024 10:00 AM RATE ANALYST Office Visit [facility] - ENT [address] [place] [phone] Myra Farmer, INSPECTOR BARREL [address] [place] [address] 2L [place] [phone] 07/26/2024 11:15 AM RATE ANALYST Office Visit [facility] - ENT [address] [place] [phone] Neri Delgado MD [address] [place] [address] 08/02/2024 2:20 PM RATE ANALYST Appointment [facility] [address] [place] [address] 08/02/2024 3:00 PM RATE ANALYST Office Visit [facility] - Hematology/Oncology [address] [place] [phone] Remi Beckett MD [address] [place] [phone] 08/18/2024 1:45 PM RATE ANALYST Office Visit [facility] - ENT [address] [place] [phone] Neri Delgado MD [address] [place] [address] documented as of this encounter Visit Diagnoses Not on filedocumented in this encounter Care Teams Skidder Driver Relationship Specialty Start Date End Date Taniya Grimes MD [address] [place] [address] PCP - General 07/01/20 05/10/22 Rocio Barcenas MD [address] [place] [address] Resident - PCP Internal Medicine 01/12/22 04/05/22 documented as of this encounter
--- OUTSIDE RECORDS SUMMARY | 2024-07-23 07:14 | XMS_ITS | Encounter Summary ---
Author Organization [facility] Health Address [address] [place] [address] Care Team Providers Care Merchandise Planning Manager Name Role Phone Taniya Grimes MD Primary Care Provider Rocio Barcenas MD Unavailable Reason for Visit * Reason Comments Thyroid Problem Encounter Details Date Type Department Care Team (Late st Contact Info) Description 01/28/2022 10:45 AM CDT Office Visit [facility] [address] [place] [phone] Neri Delgado MD [address] [place] [phone] Thyroid cancer (HCC) (Primary Dx) Social History Tobacco Use [...] Sign Reading Time Taken Comments Blood Pressure 126/83 01/28/2022 10:53 AM CDT Pulse 77 01/28/2022 10:53 AM CDT Temperature - - Respiratory Rate 16 01/28/2022 10:53 AM CDT Oxygen Saturation - - Inhaled Oxygen Concentration - - Weight 73 kg (161 lb) 01/28/2022 10:53 AM CDT Height 157.5 cm (5' 2) 01/28/2022 10:53 AM CDT Body Mass Index 29.45 01/28/2022 10:53 AM CDT documented in this encounter Functional [...] No 08/20/2020 documented as of this encounter Patient Instructions * Patient Instructions* Yisel Crump S - 01/28/2022 10:53 AM CDT Thank you for visiting [facility] Otolaryngology - Head & Neck Surgery. We [...] an appointment, please call our office at [phone] Wednesday through Wednesday from 8:30 am to4:30 pm. You can also request a routine appointment through your [employer] account. Prescription Refills Contact your pharmacy to [...] you have a medical emergency, please call [phone] or go to the nearest emergency room. For urgent medical calls which cannot wait until the office opens, please call the medical exchangeat and ask the trimming machine set up operator to page the ENT physician bakery demonstrator. *Caller ID blocking service will need to be turned off for your call to be returned. We also specialize in Hearing Aids, Allergy testing, swallowing disorders, voice problems, cancer diagnosis, and so much more. Visit our website at [email or web address] for information about our practice and an interactive health encyclopedia. documented in this encounter Progress Notes * Justin Valverde MD - 01/28/2022 11:34 AM CDT CC: Chief Complaint Patient presents with ??? Thyroid Problem Diagnosis: Site: Thyroid Histology: PTC Stage: [id number] AJCC IVb Details: Positive margins, LVI +, PNI + (including Right RLN), nodes, JADON + ?? Treatment History: 08/19/20: total thyroidectomy requiring sacrifice of Right RLN/tracheal resection/reanastamosis, bilateral lateral and central neck dissection HPI: Brisa Hogan is a 61 year old female presenting for follow up of her complex thyroid cancer andassociated dysphonia/dysphagia. Presents today with concerns of new right neck nodule, noted 1-2 months ago; previously saw Dr. Bustamante who noted same on exam. Nodule is nontender and she has no associated sx. Prior to office visit today, pt had CT neck which demonstrated lesion in corresponding area. She continues smoking 6-10 cigarettes per day, continues to have some issues with hoarseness (although overall she is doing very well despite loss of R RLN), and fatigue. Thyroid labs cont to demonstrate low TSH, appropriate T4, and presents of antibodies; she continues on 112mcg of levothyroxine daily Wednesday - Wednesday, and no repletion on Wednesday. Medical History: Past Medical History: Past Medical [...] ??? Thyroid cancer 10/14/2020 ??? Tracheal mass Past Surgical History: [...] tablet Take 1,000 mg by mouth every 8 hours as needed ??? atorvastatin (LIPITOR) 40 MG tablet TAKE 1 TABLET BY MOUTH EVERYDAY AT BEDTIME ??? celecoxib (CELEBREX) 200 MG capsule Take [...] fluticasone propionate (FLONASE) 50 MCG/ACT nasal spray Beeson 2 (two) sprays into each nostril once daily ??? gabapentin (NEURONTIN) 300 MG capsule TAKE 1 CAPSULE BY MOUTH THREE TIMES A DAY ??? KIRHPD-ISDPTDKBE-CJD-C-HYAL PO Take 1 tablet by mouth 3 times daily ??? levothyroxine (SYNTHROID) 112 MCG tablet Take 1 (one) tablet by mouth once daily ??? Misc Natural Products (NEURIVA PO) Take 2 capsules by mouth every morning ??? nicotine (NICODERM CQ) 14 MG/24HR patch Apply 1 (one) patch to skin once daily ??? pantoprazole EC (PROTONIX) 40 MG tablet TAKE ONE TABLET BY MOUTH ONCE DAILY FOR STOMACH ??? PARoxetine (PAXIL) 40 MG tablet ??? thyrotropin tayo (THYROGEN) injection Inject 0.9 mg into muscle every 24 hours for 2 doses Reasons: Cancer of Thyroid ??? traZODone (DESYREL) 50 MG tablet Take 50 mg by mouth at bedtime ??? vitamin E (TOCOPHERYL) 200 UNIT capsule Take 200 Units by mouth 3 times daily No current facility-administered medications for this visit. Facility-Administered Medications Ordered in Other Visits Medication ??? iopamidol (Isovue 370) 76 % contrast Allergies: Allergies Allergen Reactions ??? Kiwi Extract Anaphylaxis Social History: Smokin+ pack-years, currently ~1/4 - 1/2 PPD Exam: Vitals: 01/28/22 1053 BP: 126/83 Pulse: 77 Resp: 16 Weight: 161 lb (73 kg) Height: 5' 2 (1.575 m) General: Awake and alert in no apparent [...] no lesions seen and no masses palpable Laryngoscopy: paralysis of R cord, well-compensated by L cord motion, phonation strong; please refer to Dr. Delgado's procedure report for details. Neck: No palpable lymphadenopathy bilaterally. Well healed anterior and lateral neck scars. The salivary glands are without palpable masses. Voice: mild hoarseness (baseline per pt) Neurologic: Cranial nerves III-XII grossly intact ?? Imaging: CT neck: 01/28/2022: - R side neck lesion, does not appear to involve aerodigestive tract, hyperdense compared to surrounding tissues. Formal radiology review/read pending. Assessment/Plan: 1 PTC with tracheal invasion Disease status: s/p resection (thyroidectomy/ND, tracheal resection/reanastamosis and sacrifice of R RLN), and completion of WARD, now with new, palpable mass and corresponding imaging concerning for local recurrence. - will plan for OR for R neck dissection, excision of mass, with Dr. Delgado in near future - will send to PAT today for preoperative assessment. ?? 2. Survivorship - Smoking cessation counseling: discussed today - Annual TSH: followed by Endocrine - Annual lung cancer screening: indicated. If not done by PCP would order in follow up. ?? Justin Valverde MD 01/28/22 11:35 AM Associated attestation - Neri Delgado MD - 01/28/2022 12:24 PM CDT Attending Physician Supervisory Note I personally interviewed and examined the patient and agree with the Resident above. In addition I note: [id number] thyroid cancer status post extensive local surgery and WARD. She now has a palpable nodule overlying the right thyroid cartilage within the strap musculature which is enhancing and FDG avid, highly suspicious for recurrence. She also has FDG avidity diffusely in the left central neck centeredaround the cricothyroid joint but I do not see any structural disease at this site on her CT. Additionally she has a right vocal cord paralysis, so even though she is currently compensating well, there would be significant morbidity associated with any further left central neck surgery. After discussion of her options we are in agreement to proceed with excision of the right central neck nodule and we will arrange for this in the near future. I was present for all procedures during this visit. Neri Delgado MD documented in this encounter Procedure Notes * Neri Delgado MD - 01/28/2022 12:24 PM CDTAssociated Order(s): PROC ENDOSCOPY-LARYNX Procedure(s): [place] LARYNGOSCOPY,FLEX FIBER,DIAGNOSTIC Pre-Procedure Diagnose(s): Thyroid cancer (HCC) Procedure Note Anesthesia: Lidocaine 2% and Stone-Synephrine 1/2% Endoscopy Type: Flexible Abype-Dinicqatrdhsjd-Mcnisvorpcno Procedure Details: Informed consent was obtained. The patient was placed in the sitting position. After topical anesthesia and decongestion, the 4 mm laryngoscope was passed. The nasal cavities, nasopharynx, oropharynx, hypopharynx, and larynx were all examined. Vocal cords were examined during resp iration and phonation. Findings: -Right vocal cord is fixed, foreshortened, and slightly bowed. However the left vocal cord is able to fully compensate and create good glottic closure. Disposition: The patient tolerated procedure well. Complications: None documented in this encounter Plan of Treatment Upcoming Encounters Date Type Department Care Team (Late st Contact Info) Description 07/25/2024 10:00 AM ORACLE TECHNICAL ARCHITECT Office Visit [facility] - Endocrinology [address] [place] [phone] Yosi Bustamante MD [address] [place] [address] 2L [place] [address] 07/26/2024 10:00 AM ORACLE TECHNICAL ARCHITECT Appointment [facility] DIAGNOSTIC RAD [address] [place] [address] Neri Delgado MD [address] [place] [address] 07/26/2024 10:00 AM ORACLE TECHNICAL ARCHITECT Office Visit [facility] - ENT [address] [place] [phone] Myra Farmer, WEIGHT LOSS PHYSICIAN [address] [place] [address] 2L [place] [address] 07/26/2024 11:15 AM ORACLE TECHNICAL ARCHITECT Office Visit [facility] - ENT [address] [place] [phone] Neri Delgado MD [address] [place] [address] 08/02/2024 2:20 PM ORACLE TECHNICAL ARCHITECT Appointment [facility] [address] [place] [address] 08/02/2024 3:00 PM ORACLE TECHNICAL ARCHITECT Office Visit [facility] - Hematology/Oncology [address] [place] [phone] Remi Beckett MD [address] [place] [address] 08/18/2024 1:45 PM ORACLE TECHNICAL ARCHITECT Office Visit [facility] - ENT [address] [place] [phone] Neri Delgado MD [address] [place] [address] documented as of this encounter Procedures Procedure Name Priority Date/Time Associated Diagnosis Comments [place] LARYNGOSCOPY,FLEX FIBER,DIAGNOSTIC Routine 01/28/2022 12:24 PM CDT Thyroid cancer (HCC) documented in this encounter Results * [place] LARYNGOSCOPY,FLEX FIBER,DIAGNOSTIC (01/28/2022 12:24 PM CDT) Narrative Neri Delgado MD - 01/28/2022 12:24 PM CDT Neri Delgado MD ? 01/28/2022 12:26 PM Procedure Note Anesthesia: Lidocaine 2% and Stone-Synephrine 1/2% Endoscopy Type: ??Flexible Nodnm-Vznqrxamkxnlbk-Bmaerzhczwed Procedure Details: ??Informed consent was obtained. ??The [...] gland documented in this encounter Care Teams Merchandise Planning Manager Relationship Specialty Start Date End Date Taniya Grimes MD [address] [place] [phone] PCP - General 07/01/20 05/10/22 Rocio Barcenas MD [address] [facility] [place] [phone] Resident - PCP Internal Medicine 01/12/22 04/05/22 documented as of this encounter
--- OUTSIDE RECORDS SUMMARY | 2024-07-23 07:14 | XMS_ITS | Encounter Summary ---
Author Organization [facility] Health Address [address] [facility] [place] [address] Care Team Providers Care Tile And Marble Setter Name Role Phone Taniya Grimes MD Primary Care Provider [phone] Rocio Barcenas MD Unavailable Reason for Referral * Radiology Services (Routine) - Closed Specialty Diagnoses / Procedures Referred By Yuan robins Referred To Contact MRI Diagnoses Nontraumatic tear of left rotator cuff, unspecified tear extent Procedures MRI SHOULDER LEFT WO CONTRAST Kami Willingham PA-C [address] [place] [address] Referral ID Status Reason Start Date Expiration Date Visits Re quested Visits Authorized [id number] Closed 03/19/2022 03/19/2023 1 1 Reason for Visit * Reason Comments Shoulder Pain Left shoulder pain Encounter Details Date Type Department Care Team (Late st Contact Info) Description 02/27/2022 12:30 PM CDT Office Visit [facility] [address] [facility], [place] [address] Kami Willingham PA-C [address] [facility] [address] - [address]4 [place] [address] Nontraumatic tear of left rotator cuff, unspecified tear extent (Primary Dx) Social History Tobacco Use Types [...] Sign Reading Time Taken Comments Blood Pressure - - Pulse - - Temperature - - Respiratory Rate - - Oxygen Saturation - - Inhaled Oxygen Concentration - - Weight 74.6 kg (164 lb 6.4 oz) 02/27/2022 12:42 PM CDT Height 157.5 cm (5' 2) 02/27/2022 12:42 PM CDT Body Mass Index 30.07 02/27/2022 12:42 PM CDT documented in this encounter Functional [...] this encounter Patient Instructions * Patient Instructions* Kami Willingham PA-C - 02/27/2022 2:11 PM CDT Adult and Pediatric Orthopaedic Surgery Sports Medicine Brisa Hogan 02/27/2022 Thank you for coming in to see us today. Work/School Excuse: Excused from Work/School on 02/27/22 Impression: 61 year old female with left rotator cuff tendinopathy; high suspicion for a Nontraumatic tear of left rotator cuff on examination Plan: Images were personally interpreted and reviewed by me today in clinic. We recommended: icing, tylenol, anti-inflammatory medications, activity modification, physical therapy exercises, corticosteroid injections, and MRI to evaluate for rotator cuff tear Patient consented for procedure. left shoulder steroid injection given subacromial today. You may use ice on injection site 3 times per day for 3 days and take anti- inflammatories for pain relief after injection. If you experience increased pain over the next 48 hours after a steroid injection, this is normal. Please allow injection up to 2 weeks to provide you relief. If you are diabetic, you may experience increased glucose levels up to 2 weeks, please check your glucose levels daily and contact your PCP as needed. Activity restrictions discussed: as tolerated Follow up: I will call them with advanced imaging results via tele health appointment and we will make a final treatment determination after the imaging is complete. Orders Placed This Encounter PROC INJECTION JOINT (SMALL/INTERMED/MAJOR) MRI SHOULDER LEFT WO CONTRAST triamcinolone acetonide (Kenalog-40) injection 80 mg ropivacaine (Naropin) 5 MG/ML (0.5%) injection 20 mg On Today's visit with patient: I reviewed and interpreted prior medical records, discussed medication options with individual benefits vs risk/side effects, discussed referral physical therapy options and home exercise instruction. Patient was educated and given information regarding their diagnosis today. NSAIDs (non-steroidal anti-inflammatory drugs) such as Aleve/naproxen and Motrin/ibuprofen are suggested to relieve inflammation and pain for a short course of therapy for 3 weeks, advised to take with food. Cryotherapy is commonly used to reduce temperature, inflammation, pain, muscle spasm and symptoms of delayed onset muscle soreness. There are various methods of ice application such as ice pack, coldpack, cold water immersion, ice massage. There are also benefits of supplements such as: Vitamin D3 7492-2697 units daily, Glucosamine/chondriotin 500 to 2000 mg daily, and , Turmeric 1000mg daily (a natural anti-inflammatory). To Find out more info about your diagnosis, visit: [email or web address] PT Facilities recommended (all are centralized scheduling numbers) [facility] PT: [email or web address], [facility] PT: [phone] [facility]: [email or web address] , [email or web address] [facility] PT: [email or web address], [facility] PT: [email or web address], [facility]: [email or web address] [facility] physical therapy: [email or web address], ([place] locations) [facility] Orthopaedic office contact information: [facility] [employer] Employee Counselor line for assistance with appointments at: or , option 2 Office @ [facility] [address] [facility], [address], [place] [address] Please contact our staff at [phone], if you have any further questions or concerns. Office @ [facility]; [facility] [address] [place] [address] Please contact JOSY Carroll at , if you have any further questions or concerns. Office @ [facility]; [facility] [address] [facility] [address], [place] [address] Office @ [facility] location: [address] [facility] [address], [place] [address] , [facility] location: [address] [place] [address] Sincerely, Kami Willingham MPA, PA-C [email or web address] documented in this encounter Progress Notes * Kami Willingham PA-C - 02/27/2022 1:44 PM CDT Images from the original note were not included. Dear Dr. Taniya Grimes MD ; Today, 02/27/22, we had the pleasure treating rBisa Hogan at [facility] for evaluation of her left shoulder chief complaint. Brisa Hogan is a 61 year old female who c/o left shoulder pain and weakness for 2 year. Pain is exacerbated with movement. Pain is improved with nothing. DOI none. Previous treatment tried includes anti-inflammatory medications and tylenol for their symptoms. H/o thyroid cancer, thyroid surgery 02/04/22. She is taking oxycodone last prescribed on 02/05. She is asking for refill on oxycodone. She has a prescription for celebrex. She is not on chemo or radiation currently. Handedness: n/a Smoking/tobacco use: positive Occupation: none Sports: none Patient-entered Ortho Intake Form 02/27/[address] Delgado Reason for visit Left Shoulder (or upper arm) What are your symptoms? Pain, Numbness/tingling How did this pain/injury begin? just started hurting When did your pain/injury start? 2 years Does any other area/part of your body hurt? left hip Active Worker's Comp claim? No Pain level at rest 10 Pain level with activity 10 What makes your pain worse? movement Treatments tried Opioid/narcotic pain medication Currently employed? No Smoking status Current Smoker Alcohol intake? No Taking opioid/narcotic? Yes Patient-Reported Satisfaction 02/27/2022 Current state satisfactory? No Prior treatment? Yes - non-surgical treatment Function since treatment Worse Currently taking narcotics? Yes PROMIS Upper Extremity 02/27/2022 PROMIS UE Function Score 22 (severe dysfunction) PROMIS Pain Interference 02/27/2022 PROMIS PI Score 68 (moderate) Medications: Reviewed Current Outpatient Medications on File Prior to Visit Medication Sig Dispense Refill ??? acetaminophen (Tylenol) 500 MG tablet Take 2 (two) tablets by mouth every 6 hours as needed forFever or Pain Maximum allowable Acetaminophen amount = 4 Grams (4000 mg) / 24 hours. 0 ??? acetaminophen (TYLENOL) 500 MG tablet Take 1,000 mg by mouth every 6 hours as needed ??? atorvastatin (LIPITOR) 40 MG tablet TAKE 1 TABLET BY MOUTH EVERYDAY AT BEDTIME 30 tablet 3 ??? B Complex Vitamins (B COMPLEX 1 PO) Take by mouth once daily ??? calcitriol (Rocaltrol) 0.5 MCG capsule TAKE 1 CAPSULE BY MOUTH TWICE A DAY 60 capsule 11 ??? UFRLFLX-FNIHKFHGZ-FGJN PO Take by mouth once daily ??? [...] acids (PROMEGA;CARDI-OMEGA 3) 1000 MG capsule Take 1,000 mg by mouth 3 times daily with meals ??? fluticasone propionate (FLONASE) 50 MCG/ACT nasal spray Century 2 (two) sprays into each nostril once daily 48 g 0 ??? gabapentin (NEURONTIN) 300 MG capsule TAKE 1 CAPSULE BY MOUTH THREE TIMES A DAY 90 capsule 5 ??? SQNAIV-SVOWNZJBM-YOG-C-HYAL PO Take 1 tablet by mouth 3 times daily ??? levothyroxine (SYNTHROID) 112 MCG tablet Take 1 (one) tablet by mouth once daily 90 tablet 4 ??? Misc Natural Products (NEURIVA PO) Take 2 capsules by mouth every morning ??? nicotine (NICODERM CQ) 14 MG/24HR patch Apply 1 (one) patch to skin once daily 30 patch 6 ??? oxyCODONE, immediate release, (Roxicodone) 5 MG tablet Take 1 (one) tablet by mouth every 4 hours as needed 12 tablet 0 ??? pantoprazole EC (PROTONIX) 40 MG tablet [...] facility-administered medications on file prior to visit. Allergies: Reviewed Allergies as of 02/27/2022 - Reviewed 02/27/2022 Allergen Reaction Noted ??? Kiwi extract Anaphylaxis 01/10/2021 ??? Shellfish allergy Other 02/05/2022 PMH: Reviewed Past Medical History: Diagnosis Date ??? Anxiety [...] LARYNGOSCOPY WITH BIOPSY ??? Polypectomy cervical Social History: Reviewed Social History Occupational History ??? Not on file Tobacco Use ??? Smoking status: Heavy Tobacco Smoker Packs/day: 0.50 Years: 40.00 Pack years: 20.00 Types: Cigarettes Start date: 07/22/1973 ??? Smokeless tobacco: Never Used Vaping Use ??? Vaping Use: Never used Substance and Sexual Activity ??? Alcohol use: No ??? Drug use: Not Currently Types: Marijuana Comment: marijuana A FEW PUFFS DAILY for pain ??? Sexual activity: Yes Partners: Male Family History: Reviewed Family History Problem Relation Name Age of [...] ??? Thyroid Disease Neg Hx REVIEW OF SYSTEMS: Pertinent Positives and Negatives Musculoskeletal: YES joint pain or stiffness, YES muscle aches, no leg cramping Neurologic: no numbness and tingling, No dizziness or visual disturbances Endocrine: no thyroid problems, no diabetes General/Constitutional: No fever, chills, night sweats, insomnia, appetite changes, or weight changes Cardio: No chest pain or palpations Respiratory: No shortness of breath Abd: No abdnominal pain 14 System review of systems was otherwise negative as reviewed today. Physical Exam: Body mass index is 30.07 kg/m??. Vitals: 02/27/22 1242 Weight: 74.6 kg (164 lb 6.4 oz) Height: 1.575 m (5' 2) The patient is awake, alert, oriented and they are pleasant to speak with. Gait is abnormal antalgic with use of walker. There is no midline cervical spine tenderness. Evaluation of the uninjured right shoulder is normal. The symptomatic left shoulder Inspection shows: Shoulder is neurovascularly intact with no active skin lesions. There is positive atrophy. There isnegative swelling. There is not scapular winging. There positive tenderness of the rotator cuff insertion and long head biceps. There positive a sulcus sign. There is not generalized ligamentous laxity. Anterior apprehension is negative. Relocation test is negative. Posterior apprehension is negative. Ripley's test is positive. Shoulder impingement test is positive. Speed's test is not done. Cross arm adduction test is negative. Active Shoulder Range of Motion: Left Forward Elevation 40 degrees Abduction 40 degrees External Rotation 0 degrees Internal Rotation 0 Passive Shoulder Range of Motion: Left: Forward Elevation 170 degrees Abduction 170 degrees External Rotation 50 degrees Internal Rotation 30 Imaging: left shoulder X-rays images demonstrate mild degenerative. Images were personally reviewed and interpreted by me today in clinic. Impression: 61 year old female with left rotator cuff tendinopathy; high suspicion for a Nontraumatic tear of left rotator cuff on examination Plan: Images were personally interpreted and reviewed by me today in clinic. We recommended: icing, tylenol, anti-inflammatory medications, activity modification, physical therapy exercises, corticosteroid injections, and MRI to evaluate for rotator cuff tear Patient consented for procedure. left shoulder steroid injection given subacromial today. Activity restrictions discussed: as tolerated Follow up: I will call them with advanced imaging results via tele health appointment and we will make a final treatment determination after the imaging is complete. Orders Placed This Encounter ??? PROC INJECTION JOINT (SMALL/INTERMED/MAJOR) ??? MRI SHOULDER LEFT WO CONTRAST ??? triamcinolone acetonide (Kenalog-40) injection 80 mg ??? ropivacaine (Naropin) 5 MG/ML (0.5%) injection 20 mg On Today's visit with patient: I reviewed and interpreted prior medical records, discussed medication options with individual benefits vs risk/side effects, discussed referral physical therapy options and home exercise instruction. Patient was educated and given information regarding their diagnosis today. Please do not hesitate to contact me with questions regarding her or any other patient in the future. Sincerely, Kami Willingham MPA, PA-C documented in this encounter Procedure Notes * Kami Willingham PA-C - 02/27/2022 2:13 PM CDTAssociated Order(s): PROC INJECTION JOINT (SMALL/INTERMED/MAJOR) Procedure(s): CA DRAIN/INJECT LARGE JOINT/BURSA Pre-Procedure Diagnose(s): Nontraumatic tear of left rotator cuff, unspecified tear extent Injection shoulder The patient was offered a cortisone injection into the left shoulder. After discussing the risks and benefits of the procedure, the patient elected to proceed. After sterile preparation, the left shoulder was injected subacromial with a combination in One syringe: 4mL ropivacaine or lidocaine (5mg/mL) + 2ml Kenalog (40mg/mL). The patient tolerated the procedure well without complication. There was zero blood loss. documented in this encounter Plan of Treatment Upcoming Encounters Date Type Department Care Team (Late st Contact Info) Description 07/25/2024 10:00 AM AWNING INSTALLER Office Visit [facility] - Endocrinology [address] [place] [phone] Yosi Bustamante MD [address] [place] [address] 2L [place] [address] 07/26/2024 10:00 AM AWNING INSTALLER Appointment [facility] [address] [place] [address] Neri Delgado MD [address] [place] [address] 07/26/2024 10:00 AM AWNING INSTALLER Office Visit [facility] - ENT [address] [place] [phone] Myra Farmer, ZAIN [address] [place] [address] 2L [place] [phone] 07/26/2024 11:15 AM AWNING INSTALLER Office Visit [facility] - ENT [address] [place] [phone] Neri Delgado MD [address] [place] [address] 08/02/2024 2:20 PM AWNING INSTALLER Appointment [facility] [address] [place] [address] 08/02/2024 3:00 PM AWNING INSTALLER Office Visit [facility] - Hematology/Oncology [address] [place] [phone] Remi Beckett MD [address] [place] [phone] 08/18/2024 1:45 PM AWNING INSTALLER Office Visit [facility] - ENT [address] [place] [phone] Neri Delgado MD [address] [place] [address] documented as of this encounter Procedures Procedure Name Priority Date/Time Associated Diagnosis Comments CA DRAIN/INJECT LARGE JOINT/BURSA Routine 02/27/2022 2:13 PM CDT Nontraumatic tear of left rotator cuff, unspecified tear extent documented in this encounter Results * MRI SHOULDER LEFT WO CONTRAST (03/29/2022 [...] the bicipital groove. > Interpreting Provider: Nico Du MD on 03/30/2022 7:51 AM Narrative 03/30/2022 7:51 AM CDT PROCEDURE: ??MRI SHOULDER LEFT WO CONTRAST, DATE/TIME OF EXAM: ??03/29/2022 4:40 PM, LOCATION ??[facility] INDICATION: M75.102: Nontraumatic tear of left [...] signal is otherwise normal. Procedure Note Nico Du MD - 03/30/2022 PROCEDURE: MRI SHOULDER LEFT WO CONTRAST, DATE/TIME OF EXAM: 03/29/2022 4:40 PM, LOCATION [facility] INDICATION: M75.102: Nontraumatic tear of left [...] the bicipital groove. > Interpreting Provider: Nico Du MD on 03/30/2022 7:51 AM Kami Willingham PA-C MR ORDERABLES * CA DRAIN/INJECT LARGE JOINT/BURSA (02/27/2022 2:13 PM CDT) [...] Kami Willingham PA-C PROCEDURE/MINOR SURG ICAL ORDERABLES documented in this encounter Visit Diagnoses Diagnosis Nontraumatic tear of left rotator cuff, unspecified tear extent- Primary Nontraumatic tear of left rotator cuff, unspecified tear extent documented in this encounter Administered Medications Inactive Administered Medications - up to 3 most recent administrations Medication Order MAR Action Action Date Dose Rate Site ropivacaine (Naropin) 5 MG/ML (0.5%) injection 20 mg 20 mg, Infiltration, ONCE, 1 dose, On Wed02/27/22 at 1430 $ Given 02/27/2022 2:11 PM CDT 20 mg Left Shoulder triamcinolone acetonide (Kenalog-40) injection 80 mg 80 mg, Intra-articular, ONCE, 1 dose, On Wed02/27/22 at 1430, Shake well before using. $ Given 02/27/2022 2:11 PM CDT 80 mg Left Shoulder documented in this encounter Care Teams Tile And Marble Setter Relationship Specialty Start Date End Date Taniya Grimes MD [address] OF [facility] [place] [address] PCP - General 07/01/20 05/10/22 Rocio Barcenas MD [address] [facility] [place] [place] [address] Resident - PCP Internal Medicine 01/12/22 04/05/22 documented as of this encounter
--- OUTSIDE RECORDS SUMMARY | 2024-07-23 07:14 | XMS_ITS | Encounter Summary ---
Author Organization [facility] Health Address [address] [facility] [place] [address] Care Team Providers Care Front Desk Auxiliary Name Role Phone Adriana Adams DO Unavailable Eliane Tillman MD Primary Care Provider [phone] Reason for Visit * Reason Onset Date Comments MEDICATION REFILL 05/12/2022 Encounter Opened In Error 05/12/2022 Encounter Details Date Type Department Care Team (Late st Contact Info) Description 05/12/2022 Refill [facility] [address] [place] [address] Adriana Adams DO [address] [place] [phone] MEDICATION REFILL; Encounter Opened In Error Social History Tobacco Use Types Packs/Day Years [...] Telephone Encounter - Sita Cotter RN - 05/12/2022 11:43 AM BREAD RACKER Brisa Hogan encounter was opened in error. Please disregard any activity associated with this encounter. D RACKER documented in this encounter Plan of Treatment Upcoming Encounters Date Type Department Care Team (Late st Contact Info) Description 07/25/2024 10:00 AM BREAD RACKER Office Visit [facility] - Endocrinology [address] [place] [phone] Yosi Bustamante MD [address] [place] [address] 2L [place] [address] 07/26/2024 10:00 AM BREAD RACKER Appointment [facility] [address] [place] [address] Neri Delgado MD [address] [place] [address] 07/26/2024 10:00 AM BREAD RACKER Office Visit [facility] - ENT [address] [place] [phone] Myra Farmer, ZAIN [address] [place] [address] 2L DIV [place] [address] 07/26/2024 11:15 AM BREAD RACKER Office Visit [facility] - ENT [address] [place] [phone] Neri Delgado MD [address] [place] [address] 08/02/2024 2:20 PM BREAD RACKER Appointment [facility] [address] [place] [address] 08/02/2024 3:00 PM BREAD RACKER Office Visit [facility] - Hematology/Oncology [address] [place] [phone] Remi Beckett MD [address] [place] [phone] 08/18/2024 1:45 PM BREAD RACKER Office Visit [facility] - ENT [address] [place] [phone] Neri Delgado MD [address] [place] [address] documented as of this encounter Visit Diagnoses Diagnosis ERRONEOUS ENCOUNTER--DISREGARD- Primary documented in this encounter Care Teams Front Desk Auxiliary Relationship Specialty Start Date End Date Eliane Tillman MD [address] [place] [address] PCP - General 05/11/22 06/09/22 Adriana Adams DO [address] [place] [phone] Resident - PCP Internal Medicine 04/06/22 01/12/23 documented as of this encounter
--- OUTSIDE RECORDS SUMMARY | 2024-07-23 07:14 | XMS_ITS | Encounter Summary ---
Author Organization [facility] Health Address [address] [facility] [place] [address] Care Team Providers Care Formulator Name Role Phone Taniya Grimes MD Primary Care Provider Adriana Adams DO Unavailable Encounter Details Date Type Department Care Team (Latest Contact Info) Description 04/10/2022 1:50 PM CDT - 04/10/2022 2:52 PM CDT Hospital Encounter [facility] [address] [facility] [place] [address] Mary Beth Lauren MD [address] [facility] [address] [place] [address] Discharge Disposition: Home or Self [...] A DAY 60 capsule 11 02/22/2022 05/28/2023 CHGQGEG-XLEANPAHG-EQKX PO Take by mouth once daily 06/13/2023 [...] times daily 90 capsule 5 04/06/2022 11/19/2022 LPYMAW-WYGSKAMPY-JVE-C -HYAL PO Take 1 tablet by mouth [...] st Contact Info) Description 07/25/2024 10:00 AM BARREL CHARRER Office Visit [facility] - Endocrinology [address] [place] [address], [place] [address] Yosi Bustamante MD [address] [place] [address] [place] [address] 07/26/2024 10:00 AM BARREL CHARRER Appointment [facility] [address] [place] [address] Neri Delgado MD [address] [place] [address] 07/26/2024 10:00 AM BARREL CHARRER Office Visit [facility] - ENT [address] [place] [phone] Myra Farmer, SUPERVISOR [employer] [address] [place] [address] [place] [phone] 07/26/2024 11:15 AM BARREL CHARRER Office Visit [facility] - ENT [address] [place] [phone] Neri Delgado MD [address] [place] [address] 08/02/2024 2:20 PM BARREL CHARRER Appointment [facility] [address] [place] [address] 08/02/2024 3:00 PM BARREL CHARRER Office Visit [facility] - Hematology/Oncology [address] [place] [phone] Remi Beckett MD [address] [place] [phone] 08/18/2024 1:45 PM BARREL CHARRER Office Visit [facility] ENT [address] [place] [phone] Neri Delgado MD [address] [place] [address] documented as of this encounter Procedures Procedure Name Priority Date/Time Associated Diagnosis Comments XR SHOULDER LEFT 2VW OR MORE Routine 04/10/2022 1:55 PM CDT Left shoulder pain, unspecified chronicity [...] DATE/TIME OF EXAM: ??04/10/2022 1:55 PM, LOCATION ??[facility] INDICATION: M25.512: Left shoulder pain, unspecified chronicity [...] DATE/TIME OF EXAM: 04/10/2022 1:55 PM, LOCATION [facility] INDICATION: M25.512: Left shoulder pain, unspecified chronicity [...] chronicity documented in this encounter Care Teams Formulator Relationship Specialty Start Date End Date Taniya Grimes MD [address] [place] [address] PCP - General 07/01/20 05/10/22 Adriana Adams DO [address] [place] [address] Resident - PCP Internal Medicine 04/06/22 01/12/23 documented as of this encounter
--- OUTSIDE RECORDS SUMMARY | 2024-07-23 07:14 | XMS_ITS | Encounter Summary ---
Author Organization [facility] Health Address [address] [facility] [address] Care Team Providers Care Blow Mold Technician Name Role Phone Taniya Grimes MD Primary Care Provider [phone] Rocio Barcenas MD Unavailable Reason for Visit * Radiology Services (Routine) - Closed Specialty Diagnoses / Procedures Referred By Yuan robins Referred To Contact MRI Diagnoses Nontraumatic tear of left rotator cuff, unspecified tear extent Procedures MRI SHOULDER LEFT WO CONTRAST Kami Willingham PA-C [address] [facility] [address]L - DO[address],4 [place] [address] Referral ID Status Reason Start Date Expiration Date Visits Re quested Visits Authorized [id number] Closed 03/19/2022 03/19/2023 1 1 Encounter Details Date Type Department Care Team (Latest Contact Info) Description 03/29/2022 3:30 PM CDT - 03/29/2022 11:59 PM CDT Hospital Encounter [facility] MRI [address] [place] [address] Kami Willingham PA-C [address] [facility] [address]L [address] DO[address]4 [place] [address] Discharge Disposition: Home or Self [...] A DAY 60 capsule 11 02/22/2022 05/28/2023 UGJPCEF-XILGIOPLA-POIO PO Take by mouth once daily 06/13/2023 [...] fluticasone propionate (FLONASE) 50 MCG/ACT nasal spray [place] 2 (two) sprays into each nostril once daily 48 g 10/20/2021 11/25/2022 gabapentin (NEURONTIN) 300 MG capsuleIndications:Nicole stahl osteoarthritis of left hip TAKE 1 CAPSULE BY MOUTH THREE TIMES A DAY 90 capsule 5 10/08/2021 04/06/2022 JGJCCX-MLHBSDGSG-PVN-C -HYAL PO Take 1 tablet by mouth [...] Contact Info) Description 07/25/2024 10:00 AM SPRAY UNIT FEEDER Office Visit [facility] - Endocrinology [address] [place] [phone] Yosi Bustamante MD [address] [place] [address] 2L [place] [address] 07/26/2024 10:00 AM SPRAY UNIT FEEDER Appointment [facility] DIAGNOSTIC RAD [address] [place] [phone] Neri Delgado MD [address] [place] [address] 07/26/2024 10:00 AM SPRAY UNIT FEEDER Office Visit [facility] - ENT [address] [place] [phone] Myra Farmer, PRODUCTION TOOL ENGINEER [address] [place] [address] 2L [place] [phone] 07/26/2024 11:15 AM SPRAY UNIT FEEDER Office Visit [facility] - ENT [address] [place] [phone] Neri Delgado MD [address] [place] [address] 08/02/2024 2:20 PM SPRAY UNIT FEEDER Appointment [facility] [address] [place] [address] 08/02/2024 3:00 PM SPRAY UNIT FEEDER [facility] H[facility]ology[facility]Oncology [address] [place] [phone] Remi Beckett MD [address] [place] [phone] 08/18/2024 1:45 PM SPRAY UNIT FEEDER Office Visit [facility] - ENT [address] [place] [phone] Neri Delgado MD [address] [place] [address] documented as of this encounter Procedures Procedure Name Priority Date/Time Associated Diagnosis Comments MRI SHOULDER LEFT WO CONTRAST Routine 03/29/2022 4:39 PM CDT Nontraumatic tear of left rotator [...] DATE/TIME OF EXAM: ??03/29/2022 4:40 PM, LOCATION ??[facility] INDICATION: M75.102: Nontraumatic tear of left [...] DATE/TIME OF EXAM: 03/29/2022 4:40 PM, LOCATION [facility] INDICATION: M75.102: Nontraumatic tear of left [...] 7:51 AM Kami Willingham PA-C MR ORDERABLES documented in this encounter Visit Diagnoses Diagnosis Nontraumatic tear of left rotator cuff, unspecified tear extent documented in this encounter Care Teams Blow Mold Technician Relationship Specialty Start Date End Date Taniya Grimes MD [address] OF [facility] [place] [address] PCP - General 07/01/20 05/10/22 Rocio Barcenas MD [address] [place] [address] [place] [address] Resident - PCP Internal Medicine 01/12/22 04/05/22 documented as of this encounter
--- OUTSIDE RECORDS SUMMARY | 2024-07-23 07:14 | XMS_ITS | Encounter Summary ---
Author Organization [facility] Health Address [address] [facility] [place] [address] Care Team Providers Care Technology Consultant Name Role Phone Taniya Grimes MD Primary Care Provider Rocio Barcenas MD Unavailable Encounter Details Date Type Department Care Team (Late st Contact Info) Description 02/26/2022 Orders Only [facility] - [facility] [address] [facility] [place] [address] Kami Willingham PABetoC [address] [facility] 1L - DOOR 3,4 [place] [address] Left shoulder pain, unspecified chronicity [...] st Contact Info) Description 07/25/2024 10:00 AM INSTALLER HELPER Office Visit [facility] - Endocrinology [address] [place] [phone] Yosi Bustamante MD [address] [place] [address] 2L [place] [address] 07/26/2024 10:00 AM INSTALLER HELPER Appointment [facility] DIAGNOSTIC RAD [address] [place] [address] Neri Delgado MD [address] [place] [address] 07/26/2024 10:00 AM INSTALLER HELPER [facility] [address] [place] [phone] Myra Farmer, ORTHOTIST OR PROSTHETIST [address] [place] [address] 2L [place] [phone] 07/26/2024 11:15 AM INSTALLER HELPER Office Visit [facility] - ENT [address] [place] [phone] Neri Delgado MD [address] [place] [address] 08/02/2024 2:20 PM INSTALLER HELPER Appointment [facility] [address] [place] [address] 08/02/2024 3:00 PM INSTALLER HELPER Office Visit [facility] - Hematology/Oncology [address] [place] [phone] [place] [address] [place] [phone] 08/18/2024 1:45 PM INSTALLER HELPER Office Visit [facility] - ENT [address] [place] [address] [place] [address] [place] [address] documented as of this encounter Results * XR SHOULDER LEFT 2VW OR MORE (02/27/2022 12:56 PM CDT) Anatomical Region Laterality Modality Upper Extremity Radiographic Ewa ging 02/27/2022 1:16 PM CDT Impressions 02/27/2022 1:23 PM CDT IMPRESSION: Mild osteoarthritis changes. > Interpreting Provider: Nico Du MD on 02/27/2022 1:23 PM Narrative 02/27/2022 1:23 PM CDT PROCEDURE: ??XR SHOULDER LEFT 2VW OR MORE, DATE/TIME OF EXAM: ??02/27/2022 12:57 PM, LOCATION ??[facility] INDICATION: M25.512: Left shoulder pain, unspecified [...] DATE/TIME OF EXAM: 02/27/2022 12:57 PM, LOCATION [facility] INDICATION: M25.512: Left shoulder pain, unspecified [...] chronicity documented in this encounter Care Teams Technology Consultant Relationship Specialty Start Date End Date Taniya Grimes MD [address] OF [facility] [place] [phone] PCP - General 07/01/20 05/10/22 Rocio Barcenas MD [address] [facility] [place] [address] Resident - PCP Internal Medicine 01/12/22 04/05/22 documented as of this encounter
--- OUTSIDE RECORDS SUMMARY | 2024-07-23 07:14 | XMS_ITS | Encounter Summary ---
Author Organization [facility] Health Address [address] [facility] [place] [address] Care Team Providers Care Isolation Washer Name Role Phone Taniya Grimes MD Primary Care Provider Rocio Barcenas MD Unavailable Encounter Details Date Type Department Care Team (Latest Contact Info) Description 03/19/2022 Travel Social History Tobacco Use Types Packs/Day [...] st Contact Info) Description 07/25/2024 10:00 AM ACTUARIAL MATHEMATICIAN Office Visit [facility] - Endocrinology [address] [place] [address] Yosi Bustamante MD [address] [place] [address] 2L [place] [address] 07/26/2024 10:00 AM ACTUARIAL MATHEMATICIAN Appointment [facility] DIAGNOSTIC RAD [address] [place] [address] Neri Delgado MD [address] [place] [address] 07/26/2024 10:00 AM ACTUARIAL MATHEMATICIAN Office Visit [facility] - ENT [address] [place] [phone] Myra Farmer, OFFBEARER [address] [place] [address] 2L [place] [phone] 07/26/2024 11:15 AM ACTUARIAL MATHEMATICIAN Office Visit [facility] ENT [address] [place] [phone] Neri Delgado MD [address] [place] [address] 08/02/2024 2:20 PM ACTUARIAL MATHEMATICIAN Appointment [facility] [address] [place] [address] 08/02/2024 3:00 PM ACTUARIAL MATHEMATICIAN Office Visit [facility] - Hematology/Oncology [address] [place] [phone] Remi Beckett MD [address] [place] [phone] 08/18/2024 1:45 PM ACTUARIAL MATHEMATICIAN Office Visit [facility] ENT [address] [place] [phone] Neri Delgado MD [address] [place] [address] documented as of this encounter Visit Diagnoses Not on filedocumented in this encounter Care Teams Isolation Washer Relationship Specialty Start Date End Date Taniya Grimes MD [address] [place] [place] [address] PCP - General 07/01/20 05/10/22 Rocio Barcenas MD [address] [place] [address] Resident - PCP Internal Medicine 01/12/22 04/05/22 documented as of this encounter
--- OUTSIDE RECORDS SUMMARY | 2024-07-23 07:14 | XMS_ITS | Encounter Summary ---
Author Organization [facility] Health Address [address] [place] [address] Care Team Providers Care Neurosurgeon Name Role Phone Taniya Grimes MD Primary Care Provider Rocio Barcenas MD Unavailable Reason for Visit * Reason Comments Surgical Followup Neck mass Encounter Details Date Type Department Care Team (Late st Contact Info) Description 02/18/2022 10:15 AM CDT Office Visit [facility] [address] [place] [phone] Neri Delgado MD [address] [place] [phone] Thyroid cancer (HCC) (Primary Dx); Complete paralysis of right vocal cord; Hoarseness; Cigarette nicotine dependence without complication; Epigastric pain Social History Tobacco Use Types Packs/Day [...] Sign Reading Time Taken Comments Blood Pressure 107/56 02/18/2022 10:16 AM CDT Pulse 80 02/18/2022 10:16 AM CDT Temperature - - Respiratory Rate - - Oxygen Saturation - - Inhaled Oxygen Concentration - - Weight 74.1 kg (163 lb 4.8 oz) 02/18/2022 10:16 AM CDT Height 157.5 cm (5' 2) 02/18/2022 10:16 AM CDT Body Mass Index 29.87 02/18/2022 10:16 AM CDT documented in this encounter Functional [...] this encounter Patient Instructions * Patient Instructions* Anum Church - 02/18/2022 10:17 AM CDT Thank you for visiting [facility] Otolaryngology - Head & Neck Surgery. [...] an appointment, please call our office at [phone] Wednesday through Wednesday from 8:30 am to4:30 pm. You can also request a routine appointment through your [employer]ets[employer] account. Prescription Refills Contact your pharmacy to [...] call the medical exchangeat and ask the glazing machine operator to page the ENT physician senior health consultant. *Caller ID blocking service will need to be turned off for your call to be returned. We also specialize in Hearing Aids, Allergy testing, swallowing disorders, voice problems, cancer diagnosis, and so much more. Visit our website at [email or web address] for information about our practice and an interactive health encyclopedia. documented in this encounter Progress Notes * Neri Sweeney, CRISELDA-FISCAL SPECIALIST - 02/18/2022 10:20 AM CDT CC: Chief Complaint Patient presents with ??? Surgical Followup Neck mass Diagnosis: Site: Thyroid Histology: PTC Stage: [id number] AJCC IVb Details: Positive margins, LVI +, [...] thyroid cancer andassociated dysphonia/dysphagia. She had a new right neck nodule develop that was removed on 02/05/2022. Today she reports that she has been doing well besides intermittent chest pain located in her epigastric region (5/10) that first started last week after surgery occurs at least once daily that lastsabout minutes. Associated diaphoresis and SOB. Stress seems to make it worse and made better with cl onazepam. Feels like something sitting on my chest. Not exacerbated on exertion. Reports feeling very stressed and depressed recently. Has not been medically evaluated for her chest symptoms yet. Denies h/o cardiac history but takes Protonix for GERD. Otherwise, she thinks her neck incision is healing well with no drainage, swelling or pain. Voice has been stable. Eating and drinking anything she wants without difficulty. Continues to smoke tobacco about 6-10 cigs/daily. Denies hemoptysis, fevers/chills, new lumps or bumps in head or neck Thyroid labs cont to demonstrate low TSH, appropriate T4, and presents of antibodies; she continueson 112mcg of levothyroxine daily Wednesday - Wednesday, and no repletion on Wednesday. Here with her mother today Medical History: Past Medical History: Past Medical [...] Current Outpatient Medications Medication Sig ??? acetaminophen (Tylenol) 500 MG tablet Take 2 (two) tablets by mouth every 6 hours as needed forFever or Pain Maximum allowable Acetaminophen amount = 4 Grams (4000 mg) / 24 hours. ??? acetaminophen (TYLENOL) 500 MG tablet Take 1,000 mg by mouth every 6 hours as needed ??? atorvastatin (LIPITOR) 40 MG tablet TAKE 1 TABLET BY MOUTH EVERYDAY AT BEDTIME ??? B Complex Vitamins (B COMPLEX 1 PO) Take by mouth once daily ??? FQHVFJN-PPPJULNCG-JKSC PO Take by mouth once daily ??? [...] fluticasone propionate (FLONASE) 50 MCG/ACT nasal spray [place] 2 (two) sprays into each nostril once daily ??? gabapentin (NEURONTIN) 300 MG capsule TAKE 1 CAPSULE BY MOUTH THREE TIMES A DAY ??? WFVVCF-FTLKXHBWC-LFB-C-HYAL PO Take 1 tablet by mouth 3 times daily ??? levothyroxine (SYNTHROID) 112 MCG tablet Take 1 (one) tablet by mouth once daily ??? Misc Natural Products (NEURIVA PO) Take 2 capsules by mouth every morning ??? nicotine (NICODERM CQ) 14 MG/24HR patch Apply 1 (one) patch to skin once daily ??? oxyCODONE, immediate release, (Roxicodone) 5 MG tablet Take 1 (one) tablet by mouth every 4 hours as needed ??? pantoprazole EC (PROTONIX) 40 MG tablet TAKE ONE TABLET BY MOUTH ONCE DAILY FOR STOMACH ??? PARoxetine (PAXIL) 40 MG tablet Take 40 mg by mouth once daily ??? thyrotropin tayo [...] currently ~1/4 - 1/2 PPD Exam: Vitals: 02/18/22 1016 BP: 107/56 Pulse: 80 Weight: 163 lb 4.8 oz (74.1 kg) Height: 5' 2 (1.575 m) General: [...] to surrounding tissues. Formal radiology review/read pending. 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 Soft tissue, additional tissue over thyroid cartilage, excision (B): - Benign skeletal muscle Assessment/Plan: 1. 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 Healing well. Pt will follow up with Endocrine (Dr. Bustamante) and most likely will perform another round of WARD and if there is uptake we mayconsider surgery however there is significant risk to this including permanent tracheostomy tube. ?? 2. Intermittent Epigastric Pain -We have a low suspicion for an active cardiac event but encouraged her to contact her PCP for further workup and management. Reviewed signs and symptoms that warrant immediate visit to an ED. 3. Survivorship - Smoking cessation counseling: discussed today - Annual TSH: followed by Endocrine - Annual lung cancer screening: indicated. If not done by PCP would order in follow up. Follow up in 6 months or sooner if needed ?? INeri FNP-BC acted as scribe for Neri Delgado MD in documenting the service or procedure. To the best of my knowledge, I recorded what was dictated by Neri Delgado MD. Associated attestation - Neri Delgado MD - 02/18/2022 4:20 PM CDT Attending Physician Supervisory Note I, Neri Delgado MD, have reviewed and verified the work of Neri TORRES in training, who performed and documented in the above patient care services. I performed or re-performed all aspects the HPI, physical exam, procedure, and assessment/plan. Recurrent locally advanced thyroid cancer s/p resection of right central neck recurrence. Papillarythyroid cancer identified in the specimen with negative margins. She is healing well with no post-operative concerns. There is also a small area of abnormality on the left in the left central neck which is higher operative risk to her only function nerve. I discussed with Dr. Bustamante who will evaluate her for additional WARD. Neri Delgado MD 02/18/22 documented in this encounter Plan of Treatment Upcoming Encounters Date Type Department Care Team (Late st Contact Info) Description 07/25/2024 10:00 AM CLAY MODELER Office Visit [facility] - Endocrinology [address] [place] [address], [place] [phone] Yosi Bustamante MD [address] [place] [address] [place] [address] 07/26/2024 10:00 AM CLAY MODELER Appointment [facility] DIAGNOSTIC RAD [address] [place] [phone] Neri Delgado MD [address] [place] [address] 07/26/2024 10:00 AM CLAY MODELER Office Visit [facility] - ENT [address] [place] [phone] Myra Farmer, DIRECTOR PACKAGING [address] [place] [address] 2L [place] [phone] 07/26/2024 11:15 AM CLAY MODELER Office Visit [facility] - ENT [address] [place] [phone] Neri Delgado MD [address] [place] [address] 08/02/2024 2:20 PM CLAY MODELER Appointment [facility] [address] [place] [address] 08/02/2024 3:00 PM CLAY MODELER Office Visit [facility] Group - Hematology/Oncology [address] [place] [phone] Remi Beckett MD [address] [place] [phone] 08/18/2024 1:45 PM CLAY MODELER Office Visit [facility] - ENT [address] [place] [phone] Neri Delgado MD [address] [place] [address] documented as of this encounter Visit Diagnoses Diagnosis Thyroid cancer (HCC)- Primary Malignant neoplasm of thyroid gland Complete paralysis of right vocal cord Hoarseness Dysphonia Cigarette nicotine dependence without complication Tobacco use disorder Epigastric pain Abdominal pain, epigastric documented in this encounter Care Teams Neurosurgeon Relationship Specialty Start Date End Date Taniya Grimes MD [address] [place] [address] 2L DIV OF GEN [place] [phone] PCP - General 07/01/20 05/10/22 Rocio Barcenas MD [facility] [place] [address] Resident - PCP Internal Medicine 01/12/22 04/05/22 documented as of this encounter
--- OUTSIDE RECORDS SUMMARY | 2024-07-23 07:14 | XMS_ITS | Encounter Summary ---
Author Organization [facility] Health Address [address] [facility] [place] [address] Care Team Providers Care Inker Name Role Phone Taniya Grimes MD Primary Care Provider Rocio Barcenas MD Unavailable Reason for Visit * Reason Comments Refill Request Encounter Details Date Type Department Care Team (Late st Contact Info) Description 01/12/2022 Refill [facility] General Internal Medicine [address] [place] [address], [place] [address] Marylu Marie DO [address] [place] [address] OF [facility] INTERNAL [place] [address] Refill Request Social History Tobacco Use Types [...] No 08/20/2020 documented as of this encounter Miscellaneous Notes * Telephone Encounter - Sita Cotter RN - 01/12/2022 9:39 AM CDT MEDICATION FILLED PER PROTOCOL Disposition of prescription: e-prescribed to preferred pharmacy Response to patient: None necessary documented in this encounter Plan of Treatment Upcoming Encounters Date Type Department Care Team (Late st Contact Info) Description 07/25/2024 10:00 AM TRUCK DRIVER SALESPERSON [facility] [address] [place] [phone] Yosi Bustamante MD [address] [place] [address] 2L [place] [address] 07/26/2024 10:00 AM TRUCK DRIVER SALESPERSON Appointment [facility] DIAGNOSTIC RAD [address] [place] [address] Neri Delgado MD [address] [place] [address] 07/26/2024 10:00 AM TRUCK DRIVER SALESPERSON Office Visit [facility] - ENT [address] [place] [phone] Myra Farmer, SALES PROMOTER [address] [place] [address] 2L DIV [place] [address] 07/26/2024 11:15 AM TRUCK DRIVER SALESPERSON Office Visit [facility] - ENT [address] [place] [phone] Neri Delgado MD [address] [place] [address] 08/02/2024 2:20 PM TRUCK DRIVER SALESPERSON Appointment [facility] [address] [place] [address] 08/02/2024 3:00 PM TRUCK DRIVER SALESPERSON Office Visit [facility]ician Group - Hematology/Oncology [address] [place] [phone] Remi Beckett MD [address] [place] [phone] 08/18/2024 1:45 PM TRUCK DRIVER SALESPERSON Office Visit [facility] Group - ENT [address] [place] [phone] Neri Delgado MD [address] [place] [address] documented as of this encounter Visit Diagnoses Diagnosis Gastroesophageal reflux disease, unspecified whether esophagitis present documented in this encounter Care Teams Inker Relationship Specialty Start Date End Date Taniya Grimes MD [address] [place] [address] DIV OF [facility] INTERNAL [place] [phone] PCP - General 07/01/20 05/10/22 Rocio Barcenas MD [address] [facility] [place] [address] Resident - PCP Internal Medicine 01/12/22 04/05/22 documented as of this encounter
--- OUTSIDE RECORDS SUMMARY | 2024-07-23 07:14 | XMS_ITS | Encounter Summary ---
Author Organization [facility] Health Address [address] [facility] [place] [address] Care Team Providers Care Antitank Assault Gunner Name Role Phone Taniya Grimes MD Primary Care Provider [phone] Adriana Adams DO Unavailable Reason for Visit * Reason Onset Date Comments MEDICATION REFILL 04/06/2022 Encounter Details Date Type Department Care Team (Late st Contact Info) Description 04/06/2022 Refill [facility] Medicine [address] [place] [phone] Adriana Adams DO [address] [place] [address] MEDICATION REFILL Social History Tobacco [...] Telephone Encounter - Mellisa Vargas LPN - 04/06/2022 11:11 AM CDT Refill Request Brisa Hogan ELE: 6.16.22 Keyanna NOV scheduled: 06/10/2022 LRF: 4.22 Qty Disp: 90 # of refills: 5 Allergies: Allergies Allergen Reactions ??? Kiwi Extract Anaphylaxis ??? Shellfish Allergy Other Passed out after eating lobster but can eat shrimp and crab Pended Medication Order: Requested Prescriptions Pending Prescriptions Disp Refills ??? gabapentin (Neurontin) 300 MG capsule 90 capsule 5 Sig: Take 1 (one) capsule by mouth 3 times daily documented in this encounter Plan of Treatment Upcoming Encounters Date Type Department Care Team (Late st Contact Info) Description 07/25/2024 10:00 AM SUPERVISOR SPECIAL SERVICES Office Visit [facility] - Endocrinology [address] [place] [phone] Yosi Bustamante MD [address] [place] [address] 2L [place] [address] 07/26/2024 10:00 AM SUPERVISOR SPECIAL SERVICES Appointment [facility] [address] [place] [phone] Neri Delgado MD [address] [place] [address] 07/26/2024 10:00 AM SUPERVISOR SPECIAL SERVICES Office Visit [facility] - ENT [address] [place] [phone] Myra Farmer, TECHNICAL OPERATIONS SPECIALIST [address] [place] [address] 2L [place] [phone] 07/26/2024 11:15 AM SUPERVISOR SPECIAL SERVICES Office Visit [facility] - ENT [address] [place] [phone] Neri Delgado MD [address] [place] [address] 08/02/2024 2:20 PM SUPERVISOR SPECIAL SERVICES Appointment [facility] [address] [place] [address] 08/02/2024 3:00 PM SUPERVISOR SPECIAL SERVICES Office Visit [facility] - Hematology/Oncology [address] [place] [phone] Remi Beckett MD [address] [place] [phone] 08/18/2024 1:45 PM SUPERVISOR SPECIAL SERVICES Office Visit [facility] - ENT [address] [place] [phone] Neri Delgado MD [address] [place] [address] documented as of this encounter Visit Diagnoses Diagnosis Primary osteoarthritis of left hip Primary localized osteoarthrosis, pelvic region and thigh documented in this encounter Care Teams Antitank Assault Gunner Relationship Specialty Start Date End Date Taniya Grimes MD [address] [place] [address] 2L DIV [place] [phone] PCP - General 07/01/20 05/10/22 Adriana Adams DO [address] [place] [phone] Resident - PCP Internal Medicine 04/06/22 01/12/23 documented as of this encounter
--- OUTSIDE RECORDS SUMMARY | 2024-07-23 07:14 | XMS_ITS | Encounter Summary ---
Author Organization [facility] Health Address [address] [facility] [place] [address] Care Team Providers Care Corridor Redevelopment Manager Name Role Phone Taniya Grimes MD Primary Care Provider Rocio Barcenas MD Unavailable Reason for Visit * Reason Onset Date Comments Imaging Results 03/31/2022 Encounter Details Date Type Department Care Team (Late st Contact Info) Description 03/31/2022 Telephone [facility] Orthopedic Surgery [address] [place] [address] Kami Willingham, PABetoC [address],4 [place] [address] Imaging Results Social History Tobacco Use Types Packs/Day Years [...] encounter Miscellaneous Notes * Telephone Encounter - Kami Willingham PA-C - 03/31/2022 4:54 PM CDT I called patient to discuss MRI L shoulder results. I gave her a shoulder injection 02/27/22 with improvement of pain but she had another fall 1 week later that increased her left shoulder pain. She c/o left shoulder pain and weakness for 2 years. Pain is exacerbated with movement. Pain is improved with nothing. Previous treatment tried includes anti- inflammatory medications and tylenol for their symptoms. H/o thyroid cancer, thyroid surgery 02/04/22. She is taking oxycodone last prescribed on 02/05. She is asking for refill on oxycodone. She has a prescription for celebrex. She is not on chemo or radiation currently. She reports new onset right shoulder pain with bruising. She has appt with me on 04/10 for R shoulder pain. MRI L shoulder demonstrates partial tear supraspinatus, infraspinatus and subscapularis. Impression: 61 year old female with left rotator cuff partial tear that is not improving with conservative treatment Plan: Images were personally reviewed and interpreted by me today in clinic. We recommended: icing, tylenol, anti-inflammatory medications, activity modification, physical therapy exercises and consider surgery Dr. Lauren for discussion of rotator cuff repair Follow up: I advised she f/u with Dr. Leonidas Willingham MPA, PA-C Telephone Note Today's visit was conducted virtually. The patient and/or guardian has given verbal consent to havetoday's visit conducted by this same means with treatment provided remotely. The patient verbally consents to the billing and collection practices of the provider's medical group. Patient location: Home This encounter was performed using: Audio Reason for not using video for visit: Not medically necessary Total time spent on visit on date of encounter is: 15 minutes spent in medical decision making Patient/Guardian consented to participate in telephone medicine encounter. Patient completed a telephone encounter regarding: MRI left shoulder All aspects of patient's medical history were reviewed and updated as documented in Epic The plan was reviewed with the patient/guardian and the they confirmed understanding of the plan and all follow-up steps. Kami Wlilingham MPA, PA-C documented in this encounter Plan of Treatment Upcoming Encounters Date Type Department Care Team (Late st Contact Info) Description 07/25/2024 10:00 AM ELECTRIC TRUCK DRIVER Office Visit [facility] - Endocrinology [address] [place] [phone] Yosi Bustamante MD [address] [place] [address] 2L [place] [address] 07/26/2024 10:00 AM ELECTRIC TRUCK DRIVER Appointment [facility] [address] [place] [address] Neri Delgado MD [address] [place] [address] 07/26/2024 10:00 AM ELECTRIC TRUCK DRIVER Office Visit [facility] - ENT [address] [place] [phone] Myra Farmer, TANK TRUCK ENGINE MECHANIC [address] [place] [address] 2L [place] [phone] 07/26/2024 11:15 AM ELECTRIC TRUCK DRIVER Office Visit [facility] - ENT [address] [place] [phone] Neri Delgado MD [address] [place] [address] 08/02/2024 2:20 PM ELECTRIC TRUCK DRIVER Appointment [facility] [address] [place] [address] 08/02/2024 3:00 PM ELECTRIC TRUCK DRIVER Office Visit [facility] - Hematology/Oncology [address] [place] [phone] Remi Beckett MD [address] [place] [phone] 08/18/2024 1:45 PM ELECTRIC TRUCK DRIVER [facility] ENT [address] [place] [phone] Neri Delgado MD [address] [place] [address] documented as of this encounter Visit Diagnoses Not on filedocumented in this encounter Care Teams Corridor Redevelopment Manager Relationship Specialty Start Date End Date Taniya Grimes MD [address] [place] [address] OF [facility] [place] [phone] PCP - General 07/01/20 05/10/22 Rocio Barcenas MD [facility] [place] [place] [phone] Resident - PCP Internal Medicine 01/12/22 04/05/22 documented as of this encounter
--- OUTSIDE RECORDS SUMMARY | 2024-07-23 07:14 | XMS_ITS | Encounter Summary ---
Author Organization [facility] Health Address [address] [facility] [place] [address] Care Team Providers Care Tow Motor Operator Name Role Phone Taniya Grimes MD Primary Care Provider Rocio Barcenas MD Unavailable Reason for Visit * Reason Onset Date Comments Update 01/30/2022 Encounter Details Date Type Department Care Team (Late st Contact Info) Description 01/30/2022 Telephone [facility] Endocrinology, Diabetes and Metabolism [address] [place] [address], [facility] [place] [phone] Yosi Bustamante MD [address] [place] [address] [place] [address] Update Social History Tobacco Use Types Packs/Day Years [...] encounter Miscellaneous Notes * Telephone Encounter - Katie Kelley - 01/30/2022 11:04 AM CDT Went to Dr. Delgado in ENT for lump on throat, it is CA. Seeing anesthesiologist today, surgery Aug 4to remove the lump on her throat. ELE 6.6.22 RTC: 06/12/22 (TUS) Pt wanted you to know about this. documented in this encounter Plan of Treatment Upcoming Encounters Date Type Department Care Team (Late st Contact Info) Description 07/25/2024 10:00 AM CASTING MACHINE OPERATOR AUTOMATIC [facility] End[facility] [address] [place] [phone] Yosi Bustamante MD [address] [place] [address] 2L [place] [address] 07/26/2024 10:00 AM CASTING MACHINE OPERATOR AUTOMATIC Appointment [facility] [address] [place] [phone] Neri Delgado MD [address] [place] [address] 07/26/2024 10:00 AM CASTING MACHINE OPERATOR AUTOMATIC Office Visit [facility] - ENT [address] [place] [phone] Myra Farmer, NATURAL RESOURCES INSTRUCTOR [address] [place] [address] 2L [place] [phone] 07/26/2024 11:15 AM CASTING MACHINE OPERATOR AUTOMATIC Office Visit [facility] E[facility] [address] [place] [phone] Neri Delgado MD [address] [place] [address] 08/02/2024 2:20 PM CASTING MACHINE OPERATOR AUTOMATIC Appointment [facility] [address] [place] [address] 08/02/2024 3:00 PM CASTING MACHINE OPERATOR AUTOMATIC Office Visit [facility] Group - Hematology/Oncology [address] [place] [phone] Remi Beckett MD [address] [place] [phone] 08/18/2024 1:45 PM CASTING MACHINE OPERATOR AUTOMATIC Office Visit [facility] - ENT [address] [place] [phone] Neri Delgado MD [address] [place] [address] documented as of this encounter Visit Diagnoses Not on filedocumented in this encounter Care Teams Tow Motor Operator Relationship Specialty Start Date End Date Taniya Grimes MD [address] [place] [address] OF [facility] [place] [phone] PCP - General 07/01/20 05/10/22 Rocio Barcenas MD [address] [place] [address] [place] [address] Resident - PCP Internal Medicine 01/12/22 04/05/22 documented as of this encounter
--- OUTSIDE RECORDS SUMMARY | 2024-07-23 07:14 | XMS_ITS | Encounter Summary ---
Author Organization [facility] Health Address [address] [facility] [place] [address] Care Team Providers Care Reconciling Clerk Name Role Phone Taniya Grimes MD Primary Care Provider Rocio Barcenas MD Unavailable Adriana Adams DO Unavailable Eliane Tillman MD Primary Care Provider [phone] Joseph Manzanares MD Primary Care Provider Taniya Grimes MD Primary Care Provider Joseph Manzanares MD Primary Care Provider [phone] Tiana Naylor DO Unavailable Tiana Naylor DO Primary Care Provider Joseph Manzanares MD Unavailable Yaya Villatoro MD Primary Care Provider [phone] Encounter Details Date Type Department Care Team (Late st Contact Info) Description 01/28/2022 Telephone [facility] [address] [place] [address] Taniya Grimes MD [address] [place] [phone] Social History Tobacco Use Types Packs/Day Years [...] Telephone Encounter - Sita Cotter RN - 01/28/2022 12:08 PM CDT Appt cancelled. * Telephone Encounter - Jad Card - 01/28/2022 12:01 PM CDT Patient will not be at their appointment today at 1pm. Patient will call back to reschedule on another date. documented in this encounter Plan of Treatment Upcoming Encounters Date Type Department Care Team (Late st Contact Info) Description 07/25/2024 10:00 AM RUBBER BOOTS AND SHOES REPAIRER [facility] [address] [facility] [place] [address] Yosi Bustamante MD [address] [place] [address] [place] [address] 07/26/2024 10:00 AM RUBBER BOOTS AND SHOES REPAIRER Appointment [facility] [address] [place] [phone] Neri Delgado MD [address] [place] [address] 07/26/2024 10:00 AM RUBBER BOOTS AND SHOES REPAIRER Office Visit [facility] - ENT [address] [place] [phone] Myra Farmer, MARKET INTELLIGENCE CONSULTANT [address] [place] [address] 2L [place] [phone] 07/26/2024 11:15 AM RUBBER BOOTS AND SHOES REPAIRER Office Visit [facility] - ENT [address] [place] [phone] Neri Delgado MD [address] [place] [address] 08/02/2024 2:20 PM RUBBER BOOTS AND SHOES REPAIRER Appointment [facility] [address] [place] [address] 08/02/2024 3:00 PM RUBBER BOOTS AND SHOES REPAIRER Office Visit [facility] Group - Hematology/Oncology [address] [place] [phone] Remi Beckett MD [address] [place] [phone] 08/18/2024 1:45 PM RUBBER BOOTS AND SHOES REPAIRER Office Visit [facility] ENT [address] [place] [phone] Neri Delgado MD [address] [place] [address] documented as of this encounter Visit Diagnoses Not on filedocumented in this encounter Care Teams Reconciling Clerk Relationship Specialty Start Date End Date Taniya Grimes MD [address] [place] [address] 2L DIV [place] [phone] PCP - General 07/01/20 05/10/22 Eliane [place] MD [address] [place] [phone] PCP - General 05/11/22 06/09/22 Joseph Manzanares MD [address] [place] [phone] PCP - General Internal Medicine 06/10/22 07/14/22 Taniya Grimes MD [address] [place] [phone] PCP - General 07/15/22 10/06/22 Joseph Manzanraes MD [address] [place] [phone] PCP - General Internal Medicine 10/07/22 04/20/23 Tiana Naylor DO [address] [facility] [place] [place] [address] PCP - General Internal Medicine 04/21/23 05/03/23 Yaya Villatoro MD [address] [facility] [address] [place] [phone] PCP - General Internal Medicine 05/04/23 Rocio Barcenas MD [address] [facility] [place] [place] [phone] Resident - [facility] Internal Medicine 01/12/22 04/05/22 Adriana [place] DO [address] [place] [address] Resident - PCP Internal Medicine 04/06/22 01/12/23 Tiana Naylor DO [address] [facility] [place] [place] [address] Resident - PCP Internal Medicine 01/13/23 04/20/23 Joseph Manzanares MD [address] [place] [phone] Internal Medicine 04/21/23 documented as of this encounter
--- OUTSIDE RECORDS SUMMARY | 2024-07-23 07:14 | XMS_ITS | Encounter Summary ---
Author Organization [facility] Health Address [address] [place] [address] Care Team Providers Care Counselor Marriage And Family Name Role Phone Taniya Grimes MD Primary Care Provider Adriana Adams DO Unavailable Encounter Details Date Type Department Care Team (Latest Contact Info) Description 04/10/2022 2:53 PM CDT - 04/10/2022 11:59 PM CDT Hospital Encounter [facility] [address] [facility] [address] Mary Beth Lauren MD [address] [facility] 3,4 [place] [address] Discharge Disposition: Home or Self [...] A DAY 60 capsule 11 02/22/2022 05/28/2023 [id number]-[id number] PO Take by mouth once daily 06/13/2023 [...] fluticasone propionate (FLONASE) 50 MCG/ACT nasal spray Weldon 2 (two) sprays into each nostril once daily 48 g 10/20/2021 11/25/2022 gabapentin (Neurontin) 300 MG capsuleIndications:Nicole favio osteoarthritis of left hip Take 1 (one) capsule by mouth 3 times daily 90 capsule 5 04/06/2022 11/19/2022 XPEOIP-[id number]-DYI-C -HYAL PO Take 1 tablet by mouth 3 times daily 06/13/2023 levothyroxine (SYNTHROID) 112 MCG tabletIndications:Post operative hypothyroidism Take 1 (one) tablet by mouth once daily 90 tablet 4 10/08/2021 07/06/2022 methylPREDNISolone (Medrol Dosepak) 4 MG tablet Take by mouth as directed Follow package insert dosing for six day supply. 21 tablet 04/10/2022 09/14/2022 [facility] Natural Products (NEURIVA [...] Contact Info) Description 07/25/2024 10:00 AM SUPERVISOR INDUSTRIAL ARTS EDUCATION Office Visit [facility] Group - Endocrinology [address] [place] [address], [facility] [place] [address] Yosi Bustamante MD [address] [place] [address] 2L Div [place] [address] 07/26/2024 10:00 AM SUPERVISOR INDUSTRIAL ARTS EDUCATION Appointment [facility] [address] [place] [phone] Neri Delgado MD [address] [place] [address] 07/26/2024 10:00 AM SUPERVISOR INDUSTRIAL ARTS EDUCATION Office Visit [facility] - ENT [address] [place] [phone] Myra Farmer, COOK SYRUP MAKER [address] [place] [address] 2L [place] [phone] 07/26/2024 11:15 AM SUPERVISOR INDUSTRIAL ARTS EDUCATION Office Visit [facility] - ENT [address] [place] [phone] Neri Delgado MD [address] [place] [address] 08/02/2024 2:20 PM SUPERVISOR INDUSTRIAL ARTS EDUCATION Appointment [facility] [address] [place] [address] 08/02/2024 3:00 PM SUPERVISOR INDUSTRIAL ARTS EDUCATION Office Visit [facility] Group - Hematology/Oncology [address] [place] [phone] Remi Beckett MD [address] [place] [phone] 08/18/2024 1:45 PM SUPERVISOR INDUSTRIAL ARTS EDUCATION Office Visit [facility] - ENT [address] [place] [phone] Neri Delgado MD [address] [place] [address] documented as of this encounter Procedures Procedure Name Priority Date/Time Associated Diagnosis Comments XR CERVICAL SPINE 2 OR 3VW Routine 04/10/2022 3:00 PM CDT Neck pain documented in this encounter Results * XR CERVICAL SPINE 2 OR 3VW (04/10/2022 3:00 PM CDT) Anatomical Region Laterality Modality Spine Radiographic Ewa ging 04/10/2022 3:04 PM CDT Impressions 04/10/2022 3:10 PM CDT IMPRESSION: Degenerative changes, greatest at C4-5. > Interpreting Provider: Nico Du MD on 04/10/2022 3:10 PM Narrative 04/10/2022 3:10 PM CDT PROCEDURE: ??XR CERVICAL SPINE 2 OR 3VW, DATE/TIME OF EXAM: ??04/10/2022 3:00 PM, LOCATION ??[facility] INDICATION: M54.2: Neck pain ADDITIONAL CLINICAL INFORMATION: Ordering Provider Reason For Exam: ??C-spine vertebral injury Technologist Note: Additional: COMPARISON: CT neck 01/28/2022. FINDINGS: 2 mm retrolisthesis at C4-5. Moderate degenerative disc disease at this level. Mild degenerative disc disease at C5-6 and C6-7. C6 and C7 are partly obscured due to the shoulders. No fracture is observed. Multiple clips are present in the soft tissues. Procedure Note Nico Du MD - 04/10/2022 PROCEDURE: XR CERVICAL SPINE 2 OR 3VW, DATE/TIME OF EXAM: 23:00 PM, LOCATION [facility] INDICATION: M54.2: Neck pain ADDITIONAL CLINICAL INFORMATION: Ordering Provider Reason For Exam: C-spine vertebral injury Technologist Note: Additional: COMPARISON: CT neck 01/28/2022. FINDINGS: 2 mm retrolisthesis at C4-5. Moderate degenerative disc disease at this level. Mild degenerative disc disease at C5-6 and C6-7. C6 and C7 are partly obscured due to the shoulders. No fracture is observed. Multiple clips are present in the soft tissues. IMPRESSION: Degenerative changes, greatest at C4-5. > Interpreting Provider: Nico Du MD on 04/10/2022 3:10 PM Mary Beth Lauren MD DIAGNOSTIC IMAGING [facility] documented in this encounter Visit Diagnoses Diagnosis Neck pain Cervicalgia documented in this encounter Care Teams Counselor Marriage And Family Relationship Specialty Start Date End Date Taniya [place] MD [address] [place] [phone] PCP - General 07/01/20 05/10/22 Adriana [place] DO [address] [place] [phone] Resident - PCP Internal Medicine 04/06/22 01/12/23 documented as of this encounter
--- OUTSIDE RECORDS SUMMARY | 2024-07-23 07:14 | XMS_ITS | Encounter Summary ---
Author Organization [facility] Health Address [address] [place] [address] Care Team Providers Care Mold Repairer Name Role Phone Taniya Grimes MD Primary Care Provider [phone] Rocio Barcenas MD Unavailable Encounter Details Date Type Department Care Team (Latest Contact Info) Description 01/30/2022 2:30 PM CDT - 01/30/2022 11:59 PM CDT Hospital Encounter [facility] PAT [address] [place] [address] Taniya Grimes MD [address] [facility] 2L [facility] [place] [phone] Discharge Disposition: Home or Self Care Anesthesia [...] Room 1202 ANPTO2 1209 An Stop Meds * Agents No agents on file. * Blood No blood administrations on file. Lines, Drains, and Airways Type Details Placement Removal Peripheral IV Date: 02/05/22; Time : 0815; Orientation: Left; Placed By: marcelino; Tolerance: Well 02/05/22 0815 by Beatriz White RN 02/05/22 1450 by Milly Veloz RN ETT Date: 02/05/22; Time : 1039; Placed By: Mukund Arriaga; Vent: easy mask; [...] 1143 by Cristina Karimi RN 02/05/222058 by Joseph, Auto Release documented in this encounter Social [...] Sign Reading Time Taken Comments Blood Pressure 149/77 01/30/2022 3:26 PM CDT Pulse 79 01/30/2022 3:26 PM CDT Temperature 37.1 ??C (98.8 ??F) 01/30/2022 3:26 PM CD T Respiratory Rate 18 01/30/2022 3:26 PM CDT Oxygen Saturation 97% 01/30/2022 3:26 PM CDT Inhaled Oxygen Concentration - - Weight 74 kg (163 lb 3.2 oz) 01/30/2022 3:26 PM CDT Height 157.5 cm (5' 2) 01/30/2022 3:26 PM CDT Body Mass Index 29.85 01/30/2022 3:26 PM CDT documented in this encounter Functional [...] PO) Take by mouth once daily 12/24/2022 [id number] PO Take by mouth once daily 06/13/2023 [...] fluticasone propionate (FLONASE) 50 MCG/ACT nasal spray [place] 2 (two) sprays into each nostril once daily 48 g 10/20/2021 11/25/2022 gabapentin (NEURONTIN) 300 MG capsuleIndications:Nicole favio osteoarthritis of left hip TAKE 1 CAPSULE BY MOUTH THREE TIMES A DAY 90 capsule 5 10/08/2021 04/06/2022 [id number]-C -HYAL PO Take 1 tablet by mouth [...] st Contact Info) Description 07/25/2024 10:00 AM FLUTE GRINDER Office Visit [facility] - Endocrinology [address] [place] [phone] Yosi Bustamante MD [address] [place] [address] 2L [place] [address] 07/26/2024 10:00 AM FLUTE GRINDER Appointment [facility] DIAGNOSTIC RAD [address] [place] [phone] Neri Delgado MD [address] [place] [phone] 07/26/2024 10:00 AM FLUTE GRINDER Office Visit [facility] - ENT [address] [place] [phone] Myra Farmer, DRAWING OPERATOR [address] [place] [address] 2L [place] [phone] 07/26/2024 11:15 AM FLUTE GRINDER Office Visit [facility] - ENT [address] [place] [phone] Neri Delgado MD [address] [place] [phone] 08/02/2024 2:20 PM FLUTE GRINDER Appointment [facility] [address] [place] [phone] 08/02/2024 3:00 PM FLUTE GRINDER Office Visit [facility] - Hematology/Oncology [address] [place] [phone] Reim Beckett MD [address] [place] [address], [place] [phone] 08/18/2024 1:45 PM FLUTE GRINDER Office Visit [facility] - ENT [address] [place] [phone] Neri Delgado MD [address] [place] [phone] documented as of this encounter Visit Diagnoses Not on filedocumented in this encounter Care Teams Mold Repairer Relationship Specialty Start Date End Date Taniya Grimes MD [address] [place] [address] [facility] [place] [phone] PCP - General 07/01/20 05/10/22 Rocio Barcenas MD [facility] [facility] [place] [phone] Resident - PCP Internal Medicine 01/12/22 04/05/22 documented as of this encounter
--- OUTSIDE RECORDS SUMMARY | 2024-07-23 07:14 | XMS_ITS | Encounter Summary ---
Author Organization [facility] Address [address] [place] [address] Care Team Providers Care Assistance Representative Name Role Phone Taniya Grimes MD Primary Care Provider Rocio Barcenas MD Unavailable Reason for Visit * Reason Comments Thyroid Problem THYROID CANCER HYPOT HYROIDISM S/P THYROIDECTOMY S/P RADIOACTIVE IODINE ABLATION ELEVATED THYROGLOBULIN S/P SECOND SURGERY Encounter Details Date Type Department Care Team (Latest Contact Info) Description 03/17/2022 4:00 PM CDT Office Visit [facility] Endocrinology, Diabetes and Metabolism [address] [place] [address], [place] [id number] Yosi Bustamante MD [address] [place] [address] [place] [address] Postoperative hypothyroidism (Primary Dx); Thyroid cancer (HCC); [...] Sign Reading Time Taken Comments Blood Pressure 131/92 03/17/2022 3:41 PM CDT Pulse 96 03/17/2022 3:41 PM CDT Temperature 36.6 ??C (97.8 ??F) 03/17/2022 3:41 PM CD T Respiratory Rate - - Oxygen Saturation 95% 03/17/2022 3:41 PM CDT Inhaled Oxygen Concentration - - Weight 71.8 kg (158 lb 3.2 oz) 03/17/2022 3:41 P M CDT Height 157.5 cm (5' 2) 03/17/2022 3:41 PM CDT Body Mass Index 28.94 03/17/2022 3:41 PM CDT documented in this encounter Functional [...] * Patient Instructions* Yosi Bustamante MD - 03/17/2022 3:34 PM CDT If you have an Insulin Pump, Meter or a Continuous Glucose Monitor, please BRING IT TO EVERY VISIT and present it to the Endo rooming staff when you arrive in clinic. APPOINTMENTS: option 1 or you can send a [employer] message. Normal business hours are from 8:00 am to 4:30 pm Wednesday through Wednesday. Fax# is [phone]. REFILL REQUESTS: contact your pharmacy who will reach out to us. If you have changes to your prescription, you will need to contact us directly at [phone] and select option 3 or send your [employer] message. We request that all prescription refills be requested during regular office phone hours. If your prescription requires a prior authorization, it may take several days for us to get approval from yourinsurance company before we can refill your prescription. Please do not wait until you are completely out before contacting us. MEDICAL EMERGENCY: Please call 911 or go to the nearest Emergency Room. After hours urgent calls that cannot wait until phone lines are open on the next business day are given to the Aging Room Operator physician hotel registration clerk. Please call [phone] and identify yourself as a patient in our practice needing to speak to Aging Room Operator. The gang ripsaw operator will contact the physician hotel registration clerk. You can generally expect a return call within 30 minutes. On weekends, physicians are seeing hospitalized patients and there may be a longer wait. Test and laboratory results: Our practice typically reports lab and test results through letters orMyChart. Please allow 10 days from when your tests are completed to receive the results in the mail. Labs performed outside of [facility] facility, [facility] or [facility] may delay the results getting to us. Please contact the lab and request that they are faxed to us at [phone]. IF GOING TO [facility] or [facility]- TAKE LAB ORDER WITH YOU or they may turn you away [facility]'s missed appointment policy is: Patients with 3 consecutively missed appointments OR 3 missed appointments in a 12 month period will no longer be seen by Endocrinology. They will be asked to seek consultation outside of [facility]. A missed appointment is defined as: Arriving to a scheduled appointment too late to be seen (Patients who arrive to clinic later than their scheduled appointment time may not be seen) Not showing up or calling 24-48 hours prior to an appointment An appointment cancelled less than 24 hours in advance ADDRESS: [address] [place] [address], [place] [address] Website: [email or web address] for additional information about [facility] and an interactive health encyclopedia. BP 131/92 (BP SITE: RIGHT ARM, BP POSITION: SITTING, BP CUFF SIZE: 11) Pulse 96 Temp 97.8 ??F (36.6 ??C) (Oral) Ht 5' 2 (1.575 m) Wt 158 lb 3.2 oz (71.8 kg) SpO2 95% PLAN THYROID/NECK ULTRASOUND IN THREE MONTHS LAB SOON STANDING ORDER FOR LAB EVERY 8 WEEKS TSH AND TG LAB FOR RENAL PANEL CONTINUE CURRENT DOSE OF THYROID MEDICATION TAKE THYROID MEDICATION SIX DAYS PER WEEK NO PRESCRIPTION NEEDED Instructions for taking levothyroxine Brand name is preferred OR SAME SOURCE Take thyroid pill all by itself Take thyroid pill one hour before food or 2 to 3 hours after food Heat, humidity, and direct sunlight will cause a loss of potency Never store thyroid pill in the bathroom WILL DISCUSS WITH [facility] ABOUT DIAGNOSTIC AND TREATMENT WITH THYROGEN PROTOCOL SUGGESTED TO PATIENT THAT WITHDRAWAL PROTOCOL WOULD BE BETTER BECAUSE LAB AND [facility] MED STUDIES COULDBE CORRELATED AND A DOSE OF RADIOACTIVE IODINE DETERMINED MORE ACCURATELY IF NEEDED BASED ON LABS documented in this encounter Progress Notes * Ervin Chambers MD - 03/17/2022 6:08 PM CDT [facility] Endocrinology Follow up Note Date of Service- 03/17/2022 Primary care Doctor: Taniya Grimes MD CC: PTC s/p total thyroidectomy History of Present Illness: Brisa Hogan is a 61 year old female who comes to endocrine clinic for follow up for above complaints. PTC s/p total thyroidectomy, Positive margins, + LN's S/p WARD 157 MCI PT4a, N1b, MTx WBS uptake thyroid bed New right side neck mass s/p biopsy recurrence of PTC s/p surgical removal on 02/05/22 by Coming for follow-up today Had recent fall + Left shoulder injury Has rotator cuff injury On Levothyroxine 112 mcg daily Appetite is good Denies any weight changes Denies any dysphagia Denies any dysphonia Denies any neck pain Denies any dyspnea Denies any nervousness or shakiness Denies any nausea or vomiting Denies any skin or hair changes LAB ?? Latest Reference Range & Units 09/11/20 14:13 11/11/20 15:49 02/14/21 12:30 03/17/21 10:32 03/19/21 11:20 03/21/21 10:47 10/08/21 16:37 10/24/21 15:04 06/06/22 09:12 PTH Intact 8.0 - 77.0 pg/mL 8.0 - 77.0 pg/mL ?? <4.0 (L) 37.8 45.1 53.9 42.1 40.5 ? TSH 0.350 - 4.940 uIU/mL 2.526 0.900 0.028 (L) <0.010 (L) 139.797 (H) ?? <0.010 (L) <0.010(L) <0.010 (L) T4 Free 0.7 - 1.5 ng/dL 1.1 ?? 1.4 1.5 1.4 ?? 1.1 1.4 1.2 Thyroglobulin by ANTONIETA 1.5 - 38.5 ng/mL ?? 0.9 (L) 1.9 1.7 7.9 8.4 ?? 17.9 26.9 Thyroglobulin Antibody 0.0 - 0.9 IU/mL ?? <1.0 <1.0 <1.0 <1.0 <1.0 ?? <1.0 <1.0 (L): Data is abnormally low (H): Data is abnormally high Collected 08/19/2020 ??9:43 AM ?? Status: Edited Result - FINAL ?? Visible to patient: No (not released) ?? Dx: Hoarseness; Tracheal mass; Paralysis ... ?? 0 Result Notes ?? Component ?? Final Diagnosis Lymph nodes, left level 2A, dissection (A): - ??No evidence of malignancy in 14 nodes (0/14) Lymph nodes, left level 3, dissection (B): - ??Metastatic carcinoma in 1 of 14 nodes (1/14) Lymph nodes, left level 4&5, dissection (C): - ??Metastatic carinoma in 2 of 13 nodes (2/13) Lymph nodes, right level 3, dissection (D): - ??Metastatic carcinoma in 2 of 5 nodes (2/5) Lymph node, right level 2A, dissection (E): - ??Metastatic carcinoma in 2 of 22 nodes (2/22) - ??Positive for extranodal extension Lymph node, right level 4/5, dissection (F): - ??Metastatic carcinoma in 1 of 12 nodes (1/12) - ??Positive for extranodal extension Nerve, recurrent laryngeal, right, excision (G; including FSG): - ??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 Thyroid, left lobe, hemithyroidectomy (H): - ??Papillary thyroid carcinoma with follicular architecture, multifocal - ??Nodular hyperplasia Neck, left central mass, excision (I; including FSI): - ??Normocellular parathyroid tissue Nerve, revision right recurrent, excision (J; including FSJ): - ??Nerve and soft tissues with no evidence of malignancy Neck, central mass, dissection (K): - ??Metastatic carcinoma in 2 of 3 nodes (2/3) Soft tissue, query parathyroid, excision (L; including FSL): - ??Benign fibrovascular and neural tissues Thyroid, right lobe with tracheal wall, thyroidectomy (M; including FSM1-2): - ??Papillary thyroid carcinoma with tall cell features and frequent follicular architecture, with extrathyroidal extension - ??Tumor approaches inked margins - ??Superior and inferior tracheal margins involved by tumor; tumor involves tracheal mucosa - ??Benign parathyroid tissue Trachea, left tracheal wall, excision (N; including FSN1): - ??No evidence of malignancy Trachea, right superior tracheal wall, excision (O; including FSO1): - ??Submucosal tissue involved by tumor ?? at ??2:35 PM ?? Collected 02/05/2022 11:24 AM ?? Status: Final result ?? Visible to patient: No (not released) ?? Dx: Thyroid cancer ?? 0 Result Notes Component ?? Final Diagnosis Soft tissue, right central neck mass, excision (A): - ??Recurrent/residual papillary thyroid carcinoma (1.7 cm), infiltrating skeletal muscle - ??Margins free of malignancy (0.2 cm) Soft tissue, additional tissue over thyroid cartilage, excision (B): - ??Benign skeletal muscle at ??9:31 ?? 10/08/2021 TUS Procedure Preformed:??Ultrasound Only?? COMPARED TO:?NONE?? Nodule Size:?? THYROID GLAND SURGICALLY ABSENT LYMPH NODES IDENTIFIED RIGHT NECK ?LEVEL ?III?0.32 X 0.27 CM WITH HILAR LINE LEFT NECK ?LEVEL ?IIA ?0.52 X 0.37 CM WITH HILAR LINE, SECOND IMAGE 0.61 X 0.34 CM WITH HILAR LINE Echogenicity:??NORMAL NECK?? Vascularity:??NORMAL NECK?? Number of Nodules Present:??TWO?? Calcifications:??NONE?? Borders:??N/A ?? ASSESSMENT BENIGN APPEARING LYMPH NODES EUTHYROID CLINICALLY? 12/25/2021 PET/CT IMPRESSION: 1. Marked hypermetabolic activity at the thyroidectomy site, more prominent on the left, concerning for residual disease. Recommend correlation with thyroid sonogram. This report was approved ??by Santhosh Esquivel ?on 12/25/2021 1:54 PM . I, Dr. DIANDRA MOSELEY D.O. have personally reviewed and interpreted this examination/study. This report was electronically signed by DIANDRA MOSELEY D.O. ??on 12/25/2021 2:07 PM . ?? 03/24/2021 [facility] PROCEDURE: Post I-131 therapy whole body imaging. HISTORY: 60-year-old female with history of thyroid cancer status post thyroidectomy and radioiodine treatment with 157.6 mCi of oral I-131 on 03/19/2021. Thyroglobulin level = 7.9 on 03/19/2021. Patient's BMI 26.41 kg/m2. Technique: Anterior and posterior whole body and spot view images of the head and neck were obtained 5 days after oral I-131 therapy. COMPARISON: No prior similar study is available for comparison. FINDINGS: The images show physiologic tracer activity in the stomach, nasopharynx, bowel and bladder. There is intense radiotracer uptake in the region of the thyroid bed. There is no evidence of radiotracer activity outside the thyroid region to suggest tony or distant metastasis. IMPRESSION: 1.Radiotracer uptake at the thyroid bed is consistent with remaining functional thyroid tissue. 2.No evidence of radiotracer activity outside the thyroid region to suggest tony or distant metastasis. This report was approved ??by Dru Siu ?on 03/24/2021 3:01 PM . I, Dr. DIANDRA MOSELEY D.O. have personally reviewed and interpreted this examination/study. This report was electronically signed by DIANDRA MOSELEY D.O. ??on 03/24/2021 3:12 PM . ?? PATHOLOGIC STAGE CLASSIFICATION (pTNM, AJCC 8th Edition) ? Primary Tumor (pT) ?? pT4a Regional Lymph Nodes (pN) ?? pN1b . Current Outpatient Medications Medication Sig ??? acetaminophen [...] CAPSULE BY MOUTH TWICE A DAY ??? [id number] PO Take by mouth once daily ??? [...] fluticasone propionate (FLONASE) 50 MCG/ACT nasal spray [place] 2 (two) sprays into each nostril once daily ??? gabapentin (NEURONTIN) 300 MG capsule TAKE 1 CAPSULE BY MOUTH THREE TIMES A DAY ??? [id number] PO Take 1 tablet by mouth 3 [...] as needed (Patient not taking: Reported on 03/17/2022) ??? pantoprazole EC (PROTONIX) 40 MG tablet [...] No current facility-administered medications for this visit. Physical Exam: Constitutional: BP 131/92 (BP SITE: RIGHT ARM, BP POSITION: SITTING, BP CUFF SIZE: 11) Pulse 96 Temp 97.8 ??F (36.6 ??C) (Oral) Ht 5' 2 (1.575 m) Wt 158 lb 3.2 oz (71.8 kg) SpO2 95% General: alert x 3, No distress, appears stated age Thyroid: Surgical scar, thyroid surgically absent Heart: RRR, S1 S2 normal, No murmurs Respiratory: clear to ascultation bilateral Abdomen : Soft , Nont Tender, Bowel sounds normal Extremities: no edema, normal Laboratory Data: Recent Labs Component Name 03/07/20 1519 HGBA1C 5.5 Recent Labs Component Name 12/08/21 0912 10/24/21 1504 10/08/21 1637 TSH <0.010* <0.010* <0.010* No results for input(s): MICROALBCREA in the last 31127 hours. Recent Labs Component Name 03/07/20 1519 HGBA1C 5.5 Recent Labs Component Name 12/08/21 0912 10/24/21 1504 10/08/21 1637 POTASSIUM 4.6* 4.1 4.0 CO2 22 24 23 BUN 16 10 13 CREATININE 0.82 0.69 0.68 GLUCOSE 95 97 127* CALCIUM 8.0* 8.3* 8.5 Recent Labs Component Name 03/07/20 1519 CHOL 150 TRIG 93 HDL 51 LDLCALC 80 Assessment: Brisa was seen today for thyroid problem. Diagnoses and all orders for this visit: Postoperative hypothyroidism - PROC ULTRASOUND THYROID W/WO FNA BIOPSY - TSH; Standing - THYROGLOBULIN REFLEX PROFILE; Standing - RENAL FUNCTION PANEL; Future Thyroid cancer - PROC ULTRASOUND THYROID W/WO FNA BIOPSY - TSH; Standing - THYROGLOBULIN REFLEX PROFILE; Standing - RENAL FUNCTION PANEL; Future Hypocalcemia - PROC ULTRASOUND THYROID W/WO FNA BIOPSY - TSH; Standing - THYROGLOBULIN REFLEX PROFILE; Standing - RENAL FUNCTION PANEL; Future Other hypoparathyroidism - PROC ULTRASOUND THYROID W/WO FNA BIOPSY - TSH; Standing - THYROGLOBULIN REFLEX PROFILE; Standing - RENAL FUNCTION PANEL; Future PTC s/p total thyrodectomy, Positive margins, + LN's S/p WARD 157 MCI HIGH RISK- DUE TO LOCAL RECURRENCE PT4a, N1b, MTx WBS uptake thyroid bed New right side neck mass s/p biopsy recurrence of PTC s/p surgical removal on 02/05/22 by Plan: Obtain quantitative thyroglobulin today and in 2-3 months TUS surveillance in 3 months Discussed options- Thyroid withdrawal being the best option as labs and nuclear studies can be coordinated and WARD treatment need can be accurately determined Second option is Thyrogen Cont current dose of levothyroxine 112 mcg daily [address] with Dr.Silverberg Ervin Chambers MD Endocrinology, Diabetes and Metabolism. * Yosi Bustamante MD - 03/17/2022 4:00 PM CDT HISTORY / PROGRESS NOTE Date: 03/17/2022 Chief Complaint or Purpose for Referral: THYROID CANCER HYPOTHYROIDISM S/P THYROIDECTOMY History of Present Illness: 61 YEAR OLD WHITE FEMALE ELE 12/08/2021 No dysphagia No dyspnea No dysphonia No change size of neck No neck pain or discomfort No nervousness No shakiness No palpitations Weight stable since last visit Wt Readings from Last 3 Encounters: 03/17/22 158 lb 3.2 oz (71.8 kg) 02/27/22 164 lb 6.4 oz (74.6 kg) 02/18/22 163 lb 4.8 oz (74.1 kg) BM daily No diarrhea No constipation nocturia 0-1 per night No edema No proximal muscle weakness HAS LEFT ROTATOR CUFF INJURY NEEDS SURG REPAIR HAS NOT HAD HIP SURGERY HAS TO HAVE SHOULDER REPAIR FIRST GOT CORTISONE SHOT INTO SHOULDER FELL AND HURT LEFT SHOULDER LAB Latest Reference Range & Units 09/11/20 14:13 11/11/20 15:49 02/14/21 12:30 03/17/21 10:32 03/19/21 11:20 03/21/21 10:47 10/08/21 16:37 10/24/21 15:04 12/08/21 09:12 PTH Intact 8.0 - 77.0 pg/mL 8.0 - 77.0 pg/mL <4.0 (L) 37.8 45.1 53.9 42.1 40.5 TSH 0.350 - 4.940 uIU/mL 2.526 0.900 0.028 (L) <0.010 (L) 139.797 (H) <0.010 (L) <0.010 (L) <0.010 (L) T4 Free 0.7 - 1.5 ng/dL 1.1 1.4 1.5 1.4 1.1 1.4 1.2 Thyroglobulin by ANTONIETA 1.5 - 38.5 ng/mL 0.9 (L) 1.9 1.7 7.9 8.4 17.9 26.9 Thyroglobulin Antibody 0.0 - 0.9 IU/mL <1.0 <1.0 <1.0 <1.0 <1.0 <1.0 <1.0 (L): Data is abnormally low (H): Data is abnormally high Collected 08/19/2020 ??9:43 AM ?? Status: Edited Result - FINAL ?? Visible to patient: No (not released) ?? Dx: Hoarseness; Tracheal mass; Paralysis ... ?? 0 Result Notes Component Final Diagnosis Lymph nodes, left level 2A, dissection (A): - No evidence of malignancy in 14 nodes (0/14) Lymph nodes, left level 3, dissection (B): - Metastatic carcinoma in 1 of 14 nodes (1/14) Lymph nodes, left level 4&5, dissection (C): - Metastatic carinoma in 2 of 13 nodes (2/13) Lymph nodes, right level 3, dissection (D): - Metastatic carcinoma in 2 of 5 nodes (2/5) Lymph node, right level 2A, dissection (E): - Metastatic carcinoma in 2 of 22 nodes (2/22) - Positive for extranodal extension Lymph node, right level 4/5, dissection (F): - Metastatic carcinoma in 1 of 12 nodes (1/12) - Positive for extranodal extension Nerve, recurrent laryngeal, right, excision (G; including FSG): - 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 Thyroid, left lobe, hemithyroidectomy (H): - Papillary thyroid carcinoma with follicular architecture, multifocal - Nodular hyperplasia Neck, left central mass, excision (I; including FSI): - Normocellular parathyroid tissue Nerve, revision right recurrent, excision (J; including FSJ): - Nerve and soft tissues with no evidence of malignancy Neck, central mass, dissection (K): - Metastatic carcinoma in 2 of 3 nodes (2/3) Soft tissue, query parathyroid, excision (L; including FSL): - Benign fibrovascular and neural tissues Thyroid, right lobe with tracheal wall, thyroidectomy (M; including FSM1-2): - Papillary thyroid carcinoma with tall cell features and frequent follicular architecture, with extrathyroidal extension - Tumor approaches inked margins - Superior and inferior tracheal margins involved by tumor; tumor involves tracheal mucosa - Benign parathyroid tissue Trachea, left tracheal wall, excision (N; including FSN1): - No evidence of malignancy Trachea, right superior tracheal wall, excision (O; including FSO1): - Submucosal tissue involved by tumor at ??2:35 PM Collected 02/05/2022 11:24 AM ?? Status: Final result ?? Visible to patient: No (not released) ?? Dx: Thyroid cancer ?? 0 Result Notes Component Final Diagnosis Soft tissue, right central neck mass, excision (A): - Recurrent/residual papillary thyroid carcinoma (1.7 cm), infiltrating skeletal muscle - Margins free of malignancy (0.2 cm) Soft tissue, additional tissue over thyroid cartilage, excision (B): - Benign skeletal muscle at ??9:31 10/08/2021 TUS Procedure Preformed: Ultrasound Only COMPARED TO: NONE Nodule Size: THYROID GLAND SURGICALLY ABSENT LYMPH NODES IDENTIFIED RIGHT NECK LEVEL III 0.32 X 0.27 CM WITH HILAR LINE LEFT NECK LEVEL IIA 0.52 X 0.37 CM WITH HILAR LINE, SECOND IMAGE 0.61 X 0.34 CM WITH HILAR LINE Echogenicity: NORMAL NECK Vascularity: NORMAL NECK Number of Nodules Present: TWO Calcifications: NONE Borders: N/A ?? ASSESSMENT BENIGN APPEARING LYMPH NODES EUTHYROID CLINICALLY 12/25/2021 PET/CT IMPRESSION: 1. Marked hypermetabolic activity at the thyroidectomy site, more prominent on the left, concerning for residual disease. Recommend correlation with thyroid sonogram. This report was approved by Santhosh Esquivel on 12/25/2021 1:54 PM . I, Dr. DIANDRA MOSELEY D.O. have personally reviewed and interpreted this examination/study. This report was electronically signed by DIANDRA MOSELEY D.O. on 12/25/2021 2:07 PM . 03/24/2021 [facility] PROCEDURE: Post I-131 therapy whole body imaging. HISTORY: 60-year-old female with history of thyroid cancer status post thyroidectomy and radioiodine treatment with 157.6 mCi of oral I-131 on 03/19/2021. Thyroglobulin level = 7.9 on 03/19/2021. Patient's BMI 26.41 kg/m2. Technique: Anterior and posterior whole body and spot view images of the head and neck were obtained 5 days after oral I-131 therapy. COMPARISON: No prior similar study is available for comparison. FINDINGS: The images show physiologic tracer activity in the stomach, nasopharynx, bowel and bladder. There is intense radiotracer uptake in the region of the thyroid bed. There is no evidence of radiotracer activity outside the thyroid region to suggest tony or distant metastasis. IMPRESSION: 1.Radiotracer uptake at the thyroid bed is consistent with remaining functional thyroid tissue. 2.No evidence of radiotracer activity outside the thyroid region to suggest tony or distant metastasis. This report was approved by Dru Siu on 03/24/2021 3:01 PM . I, Dr. DIANDRA MOSELEY D.O. have personally reviewed and interpreted this examination/study. This report was electronically signed by DIANDRA MOSELEY D.O. on 03/24/2021 3:12 PM . PATHOLOGIC STAGE CLASSIFICATION (pTNM, AJCC 8th Edition) ? Primary Tumor (pT) ?? pT4a Regional Lymph Nodes (pN) ?? pN1b . (Brief 1-3; Ext. >4) Past Medical History: [...] Comment: 08/06 thyroid mass 10/14/2020: Thyroid cancer No date: Tracheal mass Past Surgical History: [...] on file Tobacco Use Smoking status: Heavy Tobacco Smoker Packs/day: 0.50 Years: 40.00 Pack years: 20 Types: Cigarettes Start date: 07/22/1973 Smokeless tobacco: Never Used Vaping Use Vaping Use: Never used Substance [...] hours as needed, Disp: , Rfl: atorvastatin (LIPITOR) 40 MG tablet, TAKE 1 TABLET BY MOUTH EVERYDAY AT BEDTIME, Disp: 30 tablet, Rfl: 3 B Complex Vitamins (B COMPLEX 1 PO), Take by mouth once daily, Disp: , Rfl: calcitriol (Rocaltrol) 0.5 MCG capsule, TAKE 1 CAPSULE BY MOUTH TWICE A DAY, Disp: 60 capsule, Rfl:11 [id number] PO, Take by mouth once daily, Disp: [...] fluticasone propionate (FLONASE) 50 MCG/ACT nasal spray, [place] 2 (two) sprays into each nostril once daily, Disp: 48 g, Rfl: 0 gabapentin (NEURONTIN) 300 MG capsule, TAKE 1 CAPSULE BY MOUTH THREE TIMES A DAY, Disp: 90 capsule,Rfl: 5 [id number] PO, Take 1 tablet by mouth 3 times daily, Disp: , Rfl: levothyroxine (SYNTHROID) 112 MCG tablet, Take 1 (one) tablet by mouth once daily, Disp: 90 tablet,Rfl: 4 Misc Natural Products (NEURIVA PO), Take 2 capsules by mouth every morning, Disp: , Rfl: nicotine (NICODERM CQ) 14 MG/24HR patch, Apply 1 (one) patch to skin once daily, Disp: 30 patch, Rfl: 6 oxyCODONE, immediate release, (Roxicodone) 5 MG tablet, Take 1 (one) tablet by mouth every 4 hours as needed, Disp: 12 tablet, Rfl: 0 pantoprazole EC (PROTONIX) 40 MG tablet, TAKE ONE TABLET BY [...] crab Physical Exam: Constitutional: Vital Signs: BP 131/92 (BP SITE: RIGHT ARM, BP POSITION: SITTING, BP CUFF SIZE: 11) Pulse 96 Temp 97.8 ??F (36.6 ??C) (Oral) Ht 5' 2 (1.575 m) Wt 158 lb 3.2 oz (71.8 kg) SpO2 95% Well developed, well nourished, white female, no acute distress, alert and oriented, normocephalic Appearance: WNL Eyes: Conjunctiva/lids WNL and EOM Intact ENT, Mouth: Hearing WNL and External ear/nose WNL Neck: No masses, symmetrical and Thyroid not enlarged Resp.:Effort nonlabored Lymph: Neck WNL MS: Station and gait WNL, Stable without dislocation, laxity, ROM without pain, no contracture, Muscle strength and tone WNL and WALKS WITH WALKER Areas Assessed: Head/neck, R/L upper extremities, Digits/nails and Inspection/palpatation of above WNL Skin: SKIN NORMAL TEXTURE AND TURGOR Neuro: Cranial nerves intact and DTR WNL Psych: Oriented X 3 and Mood/affect WNL Accuchecks: NONE Assessment: Patient Active Problem List: Psychophysiologic insomnia Chronic fatigue Snoring Obsessive-compulsive disorder Headache Primary osteoarthritis of left hip Nicotine dependence High cholesterol Other psoriasis Complete paralysis of right vocal cord Hoarseness Tracheal mass Lymphadenopathy of head and neck region Cellulitis Postoperative hypothyroidism Thyroid cancer Hypocalcemia Other hypoparathyroidism Neoplasm of uncertain behavior of skin Other seborrheic keratosis Depression, unspecified PLAN THYROID/NECK ULTRASOUND IN THREE MONTHS LAB SOON STANDING ORDER FOR LAB EVERY 8 WEEKS TSH AND TG LAB FOR RENAL PANEL CONTINUE CURRENT DOSE OF THYROID MEDICATION TAKE THYROID MEDICATION SIX DAYS PER WEEK NO PRESCRIPTION NEEDED Instructions for taking levothyroxine Brand name is preferred OR SAME SOURCE Take thyroid pill all by itself Take thyroid pill one hour before food or 2 to 3 hours after food Heat, humidity, and direct sunlight will cause a loss of potency Never store thyroid pill in the bathroom WILL DISCUSS WITH NUC MED ABOUT DIAGNOSTIC AND TREATMENT WITH THYROGEN PROTOCOL SUGGESTED TO PATIENT THAT WITHDRAWAL PROTOCOL WOULD BE BETTER BECAUSE LAB AND NUC MED STUDIES COULDBE CORRELATED AND A DOSE OF RADIOACTIVE IODINE DETERMINED MORE ACCURATELY IF NEEDED BASED ON LABS Postoperative hypothyroidism - Plan: PROC ULTRASOUND THYROID W/WO FNA BIOPSY, TSH, THYROGLOBULIN REFLEX PROFILE, RENAL FUNCTION PANEL Thyroid cancer - Plan: PROC ULTRASOUND THYROID W/WO FNA BIOPSY, TSH, THYROGLOBULIN REFLEX PROFILE, RENAL FUNCTION PANEL Hypocalcemia - Plan: PROC ULTRASOUND THYROID W/WO FNA BIOPSY, TSH, THYROGLOBULIN REFLEX PROFILE, RENAL FUNCTION PANEL Other hypoparathyroidism - Plan: PROC ULTRASOUND THYROID W/WO FNA BIOPSY, TSH, THYROGLOBULIN REFLEXPROFILE, RENAL FUNCTION PANEL Yosi Bustamante MD Professor of Internal Medicine Division of Endocrinology Department of Internal Medicine documented in this encounter Plan of Treatment Upcoming Encounters Date Type Department Care Team (Late st Contact Info) Description 07/25/2024 10:00 AM COST ANALYST Office Visit [facility] - Endocrinology [address] [place] [address], [place] [address] Yosi Bustamante MD [address] [place] [address] 2L [place] [address] 07/26/2024 10:00 AM COST ANALYST Appointment [facility] [address] [place] [address] Neri Delgado MD [address] [place] [address] 07/26/2024 10:00 AM COST ANALYST Office Visit [facility] - ENT [address] [place] [address] [phone] Myra Farmer, BLUEPRINTING AND PHOTOCOPY SUPERVISOR [address] [place] [address] 2L [place] [phone] 07/26/2024 11:15 AM COST ANALYST Office Visit [facility] - ENT [address] [place] [address] [phone] Neri Delgado MD [address] [place] [address] 08/02/2024 2:20 PM COST ANALYST Appointment [facility] [address] [place] [address] 08/02/2024 3:00 PM COST ANALYST Office Visit [facility] - Hematology/Oncology [address] [place] [address] [phone] Remi Beckett MD [address] [place] [address] [phone] 08/18/2024 1:45 PM COST ANALYST Office Visit [facility] - ENT [address] [place] [phone] Neri Delgado MD [address] [place] [address] documented as of this encounter Results * (ABNORMAL) RENAL FUNCTION PANEL (03/19/2022 12:31 PM CDT) BUN 14 7 - 26 mg/dL 03/19/2022 1:36 PM [facility] Creatinine 0.81 0.56 - 0.96 mg/dL 03/19/2022 1:36 PM [facility] Sodium 140 136 - 145 mmol/L 03/19/2022 1:36 PM [facility] Potassium 4.2 3.5 - 4.5 mmol/L 03/19/2022 1:36 PM [facility] Chloride 103 98 - 107 mmol/L 03/19/2022 1:36 PM [facility] CO2 25 22 - 29 mmol/L 03/19/2022 1:36 PM [facility] Glucose 94 70 - 115 mg/dL 03/19/2022 1:36 PM [facility] Albumin 4.0 3.4 - 5.0 g/dL 03/19/2022 1:36 PM [facility] Calcium 8.9 8.4 - 10.2 mg/dL 03/19/2022 1:36 PM [facility] Phosphorus 4.9 2.9 - 5.1 mg/dL 03/19/2022 1:36 PM [facility] Anion Gap 16 8 - 18 03/19/2022 1:36 PM [facility] BUN/Creatinine Ratio 17 7 - 23 03/19/2022 1:36 PM [facility] Osmolality Calculated 290 270 - 300 mOsm/kg 03/19/2022 1:36 PM [facility] eGFR by CKD-EPI 82(L) >=90 mL/min/1.7 3 m2 03/19/2022 1:36 PM [facility] Blood BLOOD SPECIMEN / Unknown Lab Venipuncture / Unknown 03/19/2022 12:31 PM CDT 03/19/2022 1:05 PM T Yosi Bustamante MD LAB - CHEMISTRY ORD ERABLES [facility] [address] [place] [address], [facility] [phone] documented in this encounter Visit Diagnoses Diagnosis Postoperative hypothyroidism- Primary Postsurgical hypothyroidism Thyroid cancer (HCC) Malignant neoplasm of thyroid gland Hypocalcemia Other hypoparathyroidism (HCC) documented in this encounter Care Teams Assistance Representative Relationship Specialty Start Date End Date Taniya Grimes MD [address] OF [facility] [place] [phone] PCP - General 07/01/20 05/10/22 Rocio Barcenas MD [address] [facility] [place] [phone] Resident - PCP Internal Medicine 01/12/22 04/05/22 documented as of this encounter
--- OUTSIDE RECORDS SUMMARY | 2024-07-23 07:14 | XMS_ITS | Encounter Summary ---
Author Organization [facility] Health Address [address] [place] [address] Care Team Providers Care Oiler Bander Name Role Phone Taniya Grimes MD Primary Care Provider Roico Barcenas MD Unavailable Encounter Details Date Type Department Care Team (Latest Contact Info) Description 01/28/2022 Travel Social History Tobacco Use Types Packs/Day [...] st Contact Info) Description 07/25/2024 10:00 AM SMASH HAND Office Visit [facility] - Endocrinology [address] [facility] [place] [address] Yosi Bustamante MD [address] [place] [address] 2L [place] [address] 07/26/2024 10:00 AM SMASH HAND Appointment [facility] [address] [place] [address] Neri Delgado MD [address] [place] [address] 07/26/2024 10:00 AM SMASH HAND Office Visit [facility] - ENT [address] [place] [address] [phone] Myra Farmer, SUPERVISOR [employer] [address] [place] [address] 2L [place] [phone] 07/26/2024 11:15 AM SMASH HAND Office Visit [facility] - ENT [address] [place] [phone] Neri Delgado MD [address] [place] [address] 08/02/2024 2:20 PM SMASH HAND Appointment [facility] [address] [place] [address] 08/02/2024 3:00 PM SMASH HAND Office Visit [facility] - Hematology/Oncology [address] [place] [address] [phone] Remi Beckett MD [address] [place] [phone] 08/18/2024 1:45 PM SMASH HAND Office Visit [facility] - ENT [address] [place] [phone] Neri Delgado MD [address] [place] [address] documented as of this encounter Visit Diagnoses Not on filedocumented in this encounter Care Teams Oiler Bander Relationship Specialty Start Date End Date Taniya Grimes MD [address] [phone] PCP - General 07/01/20 05/10/22 Rocio Barcenas MD [address] [facility] [place] [phone] Resident - PCP Internal Medicine 01/12/22 04/05/22 documented as of this encounter
--- OUTSIDE RECORDS SUMMARY | 2024-07-23 07:14 | XMS_ITS | Encounter Summary ---
Author Organization [facility] Health Address [address] [address] [facility] [address] [place] [address] Care Team Providers Care Water And Gas Helper Name Role Phone Marylu Marie DO Unavailable [phone] Taniya Grimes MD Primary Care Provider [phone] Encounter Details Date Type Department Care Team (Latest Contact Info) Description 12/25/2021 Travel Social History Tobacco Use Types Packs/Day [...] st Contact Info) Description 07/25/2024 10:00 AM WAYBILL CLERK Office Visit [facility] - Endocrinology [address] [facility] [place] [address] Yosi Bustamante MD [address] [place] [address] 2L [place] [address] 07/26/2024 10:00 AM WAYBILL CLERK Appointment [facility] [address] [place] [address] Neri Delgado MD [address] [place] [address] 07/26/2024 10:00 AM WAYBILL CLERK Office Visit [facility] - ENT [address] [place] [address] [phone] Myra Farmer, PASTRY BAKER [address] [place] [address] 2L [place] [phone] 07/26/2024 11:15 AM WAYBILL CLERK Office Visit [facility] - ENT [address] [place] [phone] Neri Delgado MD [address] [place] [address] 08/02/2024 2:20 PM WAYBILL CLERK Appointment [facility] [address] [place] [address] 08/02/2024 3:00 PM WAYBILL CLERK Office Visit [facility] - Hematology/Oncology [address] [place] [address] [phone] Remi Beckett MD [address] [place] [phone] 08/18/2024 1:45 PM WAYBILL CLERK Office Visit [facility] - ENT [address] [place] [phone] Neri Delgado MD [address] [place] [address] [place] [address] documented as of this encounter Visit Diagnoses Not on filedocumented in this encounter Care Teams Water And Gas Helper Relationship Specialty Start Date End Date Taniya Grimes MD [address] [facility] 2L DIV OF [facility] [place] [address] PCP - General 07/01/20 05/10/22 Marylu Marie DO [address] [facility] 2L DIV OF [facility] [place] [address] Resident - PCP Student Resident 06/26/20 01/11/22 documented as of this encounter
--- OUTSIDE RECORDS SUMMARY | 2024-07-23 07:14 | XMS_ITS | Encounter Summary ---
Author Organization [facility] Health Address [address] [facility] [place] [address] Care Team Providers Care Cellar Pumper Name Role Phone Taniya Grimes MD Primary Care Provider Adriana Adams DO Unavailable Elinae Tillman MD Primary Care Provider [phone] Joseph Manzanares MD Primary Care Provider [phone] Taniya Grimes MD Primary Care Provider Reason for Visit * Reason Comments Shoulder Pain Encounter Details Date Type Department Care Team (Late st Contact Info) Description 04/10/2022 1:45 PM CDT Office Visit [facility] - Orthopedics [address] [place] [address], [place] [address] Mary Beth Lauren MD [address] [place] [address] [address] [place] [address] Neck pain (Primary Dx) Social History Tobacco Use Types [...] No / Unsure 06/25/2022 10:01 AM CHIEF STRATEGY OFFICER documented as of this encounter Functional [...] this encounter Patient Instructions * Patient Instructions* Denton Merrill - 04/10/2022 3:22 PM CDT Images from the original note were not included. Adult and Pediatric Sports Medicine Brisa Hogan 04/10/2022 Thank you for coming in to see us today for your shoulder. This is a school/work excuse note for today. We recommend that you try the following for your injury: icing, tylenol, anti-inflammatory medications, physical therapy exercises, and consider surgery reverse total shoulder replacement Please contact us at to make an appointment if your symptoms are not improving, or if something about your condition significantly changes. *Please fill out the Press Ganey survey that will be sent to you.* [facility] Orthopaedic office contact information: [facility] [address] [facility], [facility], [place] [address] [facility] [place] [address] Please do not hesitate to contact me with questions regarding her or any other patient in the future. Our clinical nurse, Liliane Rivera can be reached at or [email or web address] Sincerely, Mary Beth Lauren MD documented in this encounter Progress Notes * Mary Beth Lauren MD - 04/10/2022 2:16 PM CDT Images from the original note were not included. Mary Bteh Lauren MD [facility] Orthopaedic Sports Medicine Adult and Pediatric Date of Clinic Visit: 04/10/[address] Taniya Grimes MD ; Today we had the pleasure of seeing Brisa Hogan in Orthopaedic Sports Medicine Clinic for evaluation of her bilateral shoulder injury. Brisa Hogan is a 61 year old female with history of thyroid cancer s/p thyroid surgery 02/04/22 who has had left shoulder pain and weakness for the past 2 years. She was seen by Armaan Ramseyho ordered an MRI that showed partial tears in the left supraspinatus, infraspinatus, and subscapularis tendons. She had a corticosteroid injection on 02/27/22 in her left shoulder that helped for a few days, but then she states that she fell directly onto her left shoulder and the pain became muchworse. She denies LOC or hitting her head. She also notes burning pain that radiates from her neck down her left arm. She also notes that a few days ago she heard a pop in her right arm and had a bruise over her bicep that is gradually improving. She denies any right shoulder pain. The symptoms areactivity-related and improved with rest. The symptoms limit their activities of daily living. No fevers, chills, numbness, paresthesias or gross motor weakness. They have tried icing, tylenol, anti-inflammatory medications, activity modification and corticosteroid injections for their symptoms. Handedness: There were no vitals filed for this visit. SANE Score (0-100): No flowsheet data found. Patient-entered Ortho Intake Form 04/10/2022 Referring provider Kami Willingham Reason for visit Left Shoulder (or upper arm) What are your symptoms? Pain How did this pain/injury begin? Fall When did your pain/injury start? March Does any other area/part of your body hurt? L knee, L hip Active Worker's Comp claim? No Pain level at rest 4 Pain level with activity 8 What makes your pain worse? Movement, twisting Treatments tried Rest/activity modification, Over the counter pain medication, Opioid/narcotic painmedication Currently employed? No Smoking status Current Smoker Alcohol intake? No Taking opioid/narcotic? Yes Patient-Reported Satisfaction 04/10/2022 Current state satisfactory? No Prior treatment? Yes - non-surgical treatment Function since treatment Slightly Worse Currently taking narcotics? Yes PROMIS Upper Extremity 04/10/2022 02/27/2022 PROMIS UE Function Score 22 (severe dysfunction) 22 (severe dysfunction) PROMIS Pain Interference 04/10/2022 02/27/2022 PROMIS PI Score 67 (moderate) 68 (moderate) Medications Current Outpatient Medications on File Prior to [...] TWICE A DAY 60 capsule 11 ??? [id number] PO Take by mouth once daily ??? [...] fluticasone propionate (FLONASE) 50 MCG/ACT nasal spray Widen 2 (two) sprays into each nostril once daily 48 g 0 ??? gabapentin (Neurontin) 300 MG capsule Take 1 (one) capsule by mouth 3 times daily 90 capsule 5 ??? [id number]-C-HYAL PO Take 1 tablet by mouth 3 [...] by mouth once daily 2 ??? thyrotropin tyao (THYROGEN) injection Inject 0.9 mg into muscle every 24 hours for 2 doses Reasons: Cancer of Thyroid 2 mL 0 ??? traZODone (DESYREL) 50 MG tablet Take 50 mg by mouth at bedtime ??? vitamin E (TOCOPHERYL) 200 UNIT capsule Take 200 Units by mouth 3 times daily No current facility-administered medications on file prior to visit. Allergies as of 04/10/2022 - Reviewed 03/17/2022 Allergen Reaction Noted ??? Kiwi extract Anaphylaxis 01/10/2021 ??? Shellfish allergy Other 02/05/2022 Past Medical History: Diagnosis Date ??? Anxiety [...] DIRECT LARYNGOSCOPY WITH BIOPSY ??? Polypectomy cervical 14 System review of systems: Pertinent Positives and Negatives HEENT- No blurred vision Cardio- No chest pain or palpations Respiratory- No shortness of breath Abd- No abdnominal pain 14 System review of systems was otherwise negative as reviewed today. Social History Occupational History ??? Not on [...] ??? Sexual activity: Yes Partners: Male Family History Family History Problem Relation Name [...] Status: Alive ??? Thyroid Disease Neg Hx Otherwise reviewed and non-contributory Physical Exam: General Appearance: The patient is a 61 year old female who is well-developed, well-nourished and in no acute distress. Psychiatric: Cooperative with a normal mood and affect. Respiratory: Respirations are symmetric andnon-labored. Cardiovascular: The patient has palpable radial pulses which are symmetric and regular. Skin: Skin demonstrates no lacerations, cellulitis or rashes. Neurologic: The patient is neurologically intact to gross and motor, and light touch in the upper and lower extremities. Gait: The patient ambulates in the clinic without an assistive device and without antalgia. left shoulder exam reveals +tender to palpation over the rotator cuff insertion ROM FF: 30, ABD: 20, ER: 70, IR: S1 pseudoparalysis Good passive ROM Chirinos' test: negative, Cross-chest abduction: negative, Speed's test: negative and Job's: positive Distally NVI No C-spine tenderness Right shoulder: no tenderness to palpation; ecchymosis over right bicep Imaging: shoulder X-rays and MRI images reviewed by me are positive for tears of the supraspinatus, infraspinatus, and subscapularis tendons with muscle atrophy consistent with a chronic rotator cuff injury. C-Spine X-rays images reviewed by me are positive for retrolisthesis at C4-5 with degenerative discdisease C4-7 with the greatest degenerative changes at C4-5. Impression: 61 year old female with chronic left shoulder supraspinatus, infraspinatus, and subscapularis tears, cervical radiculopathy, and right long head biceps tear Plan: Prescribed methylprednisolone 6 day pack to help with acute inflammation following the fall. Left reverse total shoulder replacement. The spectrum of the treatment options were discussed with the patient including non-operative and operative options. After thorough discussion, the patient has elected to undergo surgical treatment. The details of the surgical procedure were explained including the location of probable incisions and a description of likely hardware and/or grafts to be used. The patient understands the likely convalescence period after surgery. Also, we have thoroughly discussed the risks, benefits, and alternatives to surgery including, but not limited to, the risk of infection, joint stiffness and /or possible post-traumatic arthrosis if fracture involves the joint, fracture malunion or nonunion, possible hardware failure, possible painful hardware which would require future removal, , need for future surgeries, and blood clot (including DVT and/or pulmonary embolus), neurologic and vascular injury. Itwas explained that if tissue has been repaired or reconstructed, there is a chance of failure whichmay require further management. We also discussed that sometimes we perform surgery with the assista nce of licensed medical personnel including physician assistants, nurses, manager surgical, and orthopaedic residents. Questions were invited and answered, and they expressed understanding and agreement with the treatment plan. Patient will need medical clearance from PCP and a dental evaluation prior to surgery. I spent 20 minutes today reviewing pertinent chart notes and diagnostics as well as history, physical examination and explaining the diagnosis and treatment plan. The pertinent anatomy and pathology was discussed. Questions invited and answered, the patient expressed understanding and agreement with the stated plan. Orders Placed This Encounter ??? XR CERVICAL SPINE 2 OR 3VW Standing Status: Future Number of Occurrences: 1 Standing Expiration Date: 04/10/2023 Order Specific Question: What specific clinical question do you want answered? Answer: C-spine vertebral injury Order Specific Question: Release to patient Answer: Immediate Order Specific Question: Which views are required? Answer: Radiologist Protocol Views ??? methylPREDNISolone (Medrol Dosepak) 4 MG tablet Sig: Take by mouth as directed Follow package insert dosing for six day supply. Dispense: 21 tablet Refill: 0 Denton Merrill MS4 I personally saw, evaluated, examined and participated in the management of this patient during their clinic visit. I have reviewed all radiographic studies. I reviewed the medical student's clinic note, made appropriate edits and additions and agree with the remainder of their findings. Please seetheir note for further details. I confirm the perez elements of the history. I have discussed the results of the physical exam and all studies with the patient and family that was present. I personallydeveloped the noted assessment and discussed it with them. I confirm the perez elements of the plan of care. Please do not hesitate to contact me with questions regarding her or any other patient in the future. Our clinical nurse, Liliane Rivera, can be reached at . Sincerely, Mary Beth Lauren MD F STRATEGY OFFICER documented in this encounter Plan of Treatment Upcoming Encounters Date Type Department Care Team (Late st Contact Info) Description 07/25/2024 10:00 AM CHIEF STRATEGY OFFICER Office Visit [facility] - Endocrinology [facility], [place] [phone] Yosi Bustamante MD [address] [place] [address] [place] [address] 07/26/2024 10:00 AM CHIEF STRATEGY OFFICER Appointment [facility] [address] [place] [phone] Neri Delgado MD [address] [place] [address] 07/26/2024 10:00 AM CHIEF STRATEGY OFFICER Office Visit [facility] - ENT [address] [place] [phone] Myra Farmer, REFINISHER [address] [place] [address] [place] [phone] 07/26/2024 11:15 AM CHIEF STRATEGY OFFICER Office Visit [facility] - ENT [address] [place] [phone] Neri Delgado MD [address] [place] [address] 08/02/2024 2:20 PM CHIEF STRATEGY OFFICER Appointment [facility] [address] [place] [address] 08/02/2024 3:00 PM CHIEF STRATEGY OFFICER Office Visit [facility] - Hematology/Oncology [address] [place] [phone] Remi Beckett MD [address] [place] [phone] 08/18/2024 1:45 PM CHIEF STRATEGY OFFICER Office Visit [facility] - ENT [address] [place] [phone] Neri Delgado MD [address] [place] [address] documented as of this encounter Results * XR CERVICAL SPINE [...] DATE/TIME OF EXAM: ??04/10/2022 3:00 PM, LOCATION ??[facility] INDICATION: M54.2: Neck pain ADDITIONAL [...] 3VW, DATE/TIME OF EXAM: 23:00 PM, LOCATION [facility] INDICATION: M54.2: Neck pain ADDITIONAL [...] in this encounter Visit Diagnoses Diagnosis Neck pain- Primary Cervicalgia Neck pain Cervicalgia documented in this encounter Care Teams Cellar Pumper Relationship Specialty Start Date End Date Taniya Grimes MD [address] [place] [address] PCP - General 07/01/20 05/10/22 Eliane Tillman MD [address] [place] [phone] PCP - General 05/11/22 06/09/22 Joseph Manzanares MD [address] [place] [phone] PCP - General Internal Medicine 06/10/22 07/14/22 Taniya Grimes MD [address] [place] [phone] PCP - General 07/15/22 10/06/22 Adriana Adams DO [address] [place] [phone] Resident - [facility] Internal Medicine 04/06/22 01/12/23 documented as of this encounter
--- OUTSIDE RECORDS SUMMARY | 2024-07-23 07:14 | XMS_ITS | Encounter Summary ---
Author Organization [facility] Health Address [address] [facility] [place] [address] Care Team Providers Care Train Gate Attendant Name Role Phone Taniya Grimes MD Primary Care Provider [phone] Rocio Barcenas MD Unavailable Reason for Visit * Reason Onset Date Comments MEDICATION REFILL 01/14/2022 Encounter Details Date Type Department Care Team (Late st Contact Info) Description 01/14/2022 Refill [facility] [address] [place] [address], [place] [address] Taniya Grimes MD [address] [place] [address] [place] [address] MEDICATION REFILL Social History Tobacco [...] encounter Miscellaneous Notes * Telephone Encounter - Zachary Hendricks RN - 01/14/2022 10:11 AM CDT Pt called, stated Ortho used to fill it but no longers sees them anymore and hoping the PCP will start the fills. Please advise. Refill Request Brisakailyn Hogan ELE: 12.18.21May scheduled: 01.28.22 LRF: 11.19.20 Qty Disp: 90 # of refills: 3 Allergies: Allergies Allergen Reactions ??? Kiwi Extract Anaphylaxis Pended Medication Order: Requested Prescriptions Pending Prescriptions Disp Refills ??? celecoxib (CELEBREX) 200 MG capsule 90 capsule 3 Sig: Take 1 (one) capsule by mouth once daily documented in this encounter Plan of Treatment Upcoming Encounters Date Type Department Care Team (Late st Contact Info) Description 07/25/2024 10:00 AM DISTRIBUTION SALES MANAGER Office Visit [facility] Endocrinology [address] [place] [phone] Yosi Bustamante MD [address] [place] [address] [place] [address] 07/26/2024 10:00 AM DISTRIBUTION SALES MANAGER Appointment [facility] [address] [place] [address] Neri Delgado MD [address] [place] [address] 07/26/2024 10:00 AM DISTRIBUTION SALES MANAGER Office Visit [facility] - ENT [address] [place] [phone] Myra Farmer, PSYCHIATRIC NURSING ASSISTANT [address] [place] [address] 2L DIV [place] [address] 07/26/2024 11:15 AM DISTRIBUTION SALES MANAGER Office Visit [facility]NT [address] [place] [phone] Neri Delgado MD [address] [place] [address] 08/02/2024 2:20 PM DISTRIBUTION SALES MANAGER Appointment [facility] [address] [place] [address] 08/02/2024 3:00 PM DISTRIBUTION SALES MANAGER Office Visit [facility] - Hematology/Oncology [address] [place] [phone] Remi Beckett MD [address] [place] [phone] 08/18/2024 1:45 PM DISTRIBUTION SALES MANAGER Office Visit [facility] [address] [place] [phone] Neri Delgado MD [address] [place] [address] documented as of this encounter Visit Diagnoses Diagnosis Primary osteoarthritis of left hip- Primary Primary localized osteoarthrosis, pelvic region and thigh documented in this encounter Care Teams Train Gate Attendant Relationship Specialty Start Date End Date Taniya Grimes MD [address] [place] [address] 2L DIV OF GEN [place] [address] PCP - General 07/01/20 05/10/22 Rocio Barcenas MD [address] [facility] [place] [address] Resident - PCP Internal Medicine 01/12/22 04/05/22 documented as of this encounter
--- OUTSIDE RECORDS SUMMARY | 2024-07-23 07:14 | XMS_ITS | Encounter Summary ---
Author Organization [facility] Health Address [address] [facility] [place] [address] Care Team Providers Care Pie Filler Name Role Phone Adriana Adams DO Unavailable Eliane Tillman MD Primary Care Provider [phone] Reason for Visit * Reason Onset Date Comments MEDICATION REFILL 05/13/2022 Encounter Details Date Type Department Care Team (Late st Contact Info) Description 05/13/2022 Refill [facility] [address] [place] [address] Adriana Adams DO [address] [place] [address] MEDICATION REFILL Social History Tobacco [...] Telephone Encounter - Mellisa Vargas LPN - 05/13/2022 12:45 PM EPIC TRAINER Refill Request Brisa Woody Edison ELE: 6.16.22 Ogle NOV scheduled: 06/10/2022 LRF: 1..22 Qty Disp: 30 # of refills: 3 Allergies: Allergies Allergen Reactions ??? Kiwi Extract Anaphylaxis ??? Shellfish Allergy Other Passed out after eating lobster but can eat shrimp and crab Pended Medication Order: Requested Prescriptions Pending Prescriptions Disp Refills ??? atorvastatin (Lipitor) 40 MG tablet 30 tablet 3 Sig: TAKE 1 TABLET BY MOUTH EVERYDAY AT BEDTIME TRAINER documented in this encounter Plan of Treatment Upcoming Encounters Date Type Department Care Team (Late st Contact Info) Description 07/25/2024 10:00 AM EPIC TRAINER Office Visit [facility] Endocrinology [address] [place] [phone] Yosi Bustamante MD [address] [place] [address] 2L [place] [address] 07/26/2024 10:00 AM EPIC TRAINER Appointment [facility] [address] [place] [phone] Neri Delgado MD [address] [place] [address] 07/26/2024 10:00 AM EPIC TRAINER Office Visit [facility] [address] [place] [phone] Myra Farmer, BELT SANDER STONE [address] [place] [address] 2L [place] [phone] 07/26/2024 11:15 AM EPIC TRAINER Office Visit [facility] - ENT [address] [place] [phone] Neri Delgado MD [address] [place] [address] 08/02/2024 2:20 PM EPIC TRAINER Appointment [facility] [address] [place] [address] 08/02/2024 3:00 PM EPIC TRAINER Office Visit [facility] - Hematology/Oncology [address] [place] [phone] [place] [address] [place] [phone] 08/18/2024 1:45 PM EPIC TRAINER Office Visit [facility] - ENT [address] [place] [phone] Neri Delgado MD [address] [place] [address] documented as of this encounter Visit Diagnoses Diagnosis Hyperlipidemia, unspecified hyperlipidemia type documented in this encounter Care Teams Pie Filler Relationship Specialty Start Date End Date Eliane Tillman MD [facility] [place] [phone] PCP - General 05/11/22 06/09/[address] [facility] [place] [phone] Resident - PCP Internal Medicine 04/06/22 01/12/23 documented as of this encounter
--- OUTSIDE RECORDS SUMMARY | 2024-07-23 07:15 | XMS_ITS | Encounter Summary ---
Author Organization [facility] Address [address] [facility] [place] [address] Care Team Providers Care Artificial Foliage Arranger Name Role Phone Marylu Marie DO Unavailable Taniya Grimes MD Primary Care Provider Reason for Visit * Radiology Services (Routine) - Closed Specialty Diagnoses / Procedures Referred By Contac t Referred To Contact Positron Emission Tomography Diagnoses Thyroid cancer (HCC) Postoperative hypothyroidism Procedures PET CT WHOLE BODY Yosi Fox MD [address] [place] [address] 2L [place] [address] [facility] Pet Op [address] [place] [address] Referral ID Status Reason Start Date Expiration Date Visits Re quested Visits Authorized [id number] Closed 12/22/2021 12/22/2022 1 1 Encounter Details Date Type Department Care Team (Latest Contact Info) Description 12/25/2021 11:27 AM CDT - 12/25/2021 11:59 PM CDT Hospital Encounter [facility] PET [address] [place] [address] Yosi Fox MD [address] [place] [address] 2L Div [place], [place] [phone] Discharge Disposition: Home or Self Care Social [...] Reasons: Pain 06/13/2023 atorvastatin (LIPITOR) 40 MG tabletIndications:Hyperl ipidemia, unspecified hyperlipidemia type TAKE 1 TABLET BY MOUTH EVERYDAY AT BEDTIME 30 tablet 3 07/23/2021 05/13/2022 cetirizine (ZYRTEC) 10 MG tabletIndications:Allerg ic rhinitis, unspecified seasonality, unspecified trigger Take 1 (one) tablet by mouth once daily 30 tablet 5 11/11/2021 06/13/2023 clonazePAM (KLONOPIN) 0.5 MG tablet Take 1.5 (one and one-half) tablets by mouth once daily 10/29/2021 06/14/2023 fluticasone propionate (FLONASE) 50 MCG/ACT nasal spray Cisne 2 (two) sprays into each nostril once daily 48 g 10/20/2021 11/25/2022 gabapentin (NEURONTIN) 300 MG capsuleIndications:Prima ry osteoarthritis of left hip TAKE 1 CAPSULE BY MOUTH THREE TIMES A DAY 90 capsule 5 10/08/2021 04/06/2022 BJSYBH-HPRCLAEPY-XCT-C-H YAL PO Take 1 tablet by mouth 3 times daily 06/13/2023 levothyroxine (SYNTHROID) 112 MCG tabletIndications:Postop erative hypothyroidism Take 1 (one) tablet by mouth once daily 90 tablet 4 10/08/2021 07/06/2022 Misc Natural Products (NEURIVA PO) Take 2 capsules by mouth every morning 09/14/2022 nicotine (NICODERM CQ) 14 MG/24HR patchIndications:Tobacco use disorder Apply 1 (one) patch to skin once daily 30 patch 6 10/29/2021 10/21/2022 pantoprazole EC (PROTONIX) 40 MG tabletIndications:Gastro esophageal reflux disease, unspecified whether esophagitis present TAKE 1 TABLET BY MOUTH DAILY FOR STOMACH 30 tablet 3 09/08/2021 01/12/2022 thyrotropin tayo (THYROGEN) injectionIndications:Mal ignant Neoplasm of [...] st Contact Info) Description 07/25/2024 10:00 AM TOURIST HOME KEEPER Office Visit [facility] - Endocrinology [address] [place] [address], [place] [phone] Yosi Fox MD [address] [place] [address] [place] [address] 07/26/2024 10:00 AM TOURIST HOME KEEPER Appointment [facility] RAD [address] [place] [phone] Neri Delgado MD [address] [place] [address] 07/26/2024 10:00 AM TOURIST HOME KEEPER Office Visit [facility] - ENT [address] [place] [phone] Myra Farmer, LABORATORY CHEMIST [address] [place] [address] [place] [phone] 07/26/2024 11:15 AM TOURIST HOME KEEPER Office Visit [facility] - ENT [address] [place] [phone] Neri Delgado MD [address] [place] [address] 08/02/2024 2:20 PM TOURIST HOME KEEPER Appointment [facility] [address] [place] [address] 08/02/2024 3:00 PM TOURIST HOME KEEPER Office Visit [facility] - Hematology/Oncology [address] [place] [phone] Remi Beckett MD [address] [place] [phone] 08/18/2024 1:45 PM TOURIST HOME KEEPER Office Visit [facility] - ENT [address] [place] [phone] Neri Delgado MD [address] [place] [address] documented as of this encounter Procedures Procedure Name Priority Date/Time Associated Diagnosis Comments PET CT WHOLE BODY Routine 12/25/2021 1:2 3 PM CDT Thyroid cancer (HCC) Postoperative hypothyroidism documented in this encounter Results * PET CT WHOLE BODY (12/25/2021 1:23 PM CDT) Anatomical Region Laterality Modality Positron Emissio n Tomography (PET) 12/25/2021 12:3 6 PM CDT Impressions 12/25/2021 2:07 PM CDT IMPRESSION: 1. Marked hypermetabolic activity at the thyroidectomy site, more prominent on the left, concerning for residual disease. Recommend correlation with thyroid sonogram. This report was approved ??by Santhosh Esquivel ?? on 12/25/2021 1:54 PM . I, Dr. DIANDRA MOSELEY D.O. have personally reviewed and interpreted this examination/study. This report was electronically signed by DIANDRA MOSELEY D.O. ??on 12/25/2021 2:07 PM . Narrative 12/25/2021 2:07 PM CDT PROCEDURE: PET/CT Study REFERRING PHYSICIAN: YOSI FOX MD HISTORY: 61F with thyroid cancer status post thyroidectomy and WARD. Evaluate for subsequent treatment strategy. TECHNIQUE: 8.3 mCi of F-18 FDG by IV in the right antecubital vein. PET/CT image acquisition from the top of the head to the feet after approximately 60 minutes post-injection with the CT being low-dose, non-contrast. No separate report for the CT was generated since it was of non-diagnostic quality. Blood glucose level at the time of injection was 101 mg/dL. BMI 28.90 kg/m2 COMPARISON: No prior study is available for comparison at the time of this dictation. FINDINGS: For reference, SUV max of the mediastinum is 2.9. SUV max of the liver is 3.9. Head and neck: No abnormal FDG uptake is seen in the brain. There are no significantly FDG avid or enlarged cervical lymph nodes. Postoperative findings from thyroidectomy are noted. There is marked hypermetabolic activity at the surgical site, more prominent on the left, with SUV max on the right measuring 5.5 and SUV max on the left measuring up to 17.1. Hypermetabolic activity is noted in the sublingual gland and in multiple right-sided muscles of the tongue, possibly reactive in nature. Chest: No abnormal FDG uptake is seen within the lungs. The lungs are free of focal consolidations. No suspicious pulmonary nodules are visible. Calcified granulomas are present in the right upper lobe and right hilum. There is no pleural effusion or pneumothorax. There is no supraclavicular, axillary, mediastinal or hilar lymphadenopathy. The heart size is normal. There is no pericardial effusion. Abdomen and pelvis: The liver is normal. The gallbladder is normal without evidence of gallstones. No intrahepatic or extrahepatic biliary ductal dilatation is seen. Calcified granulomas are present in the spleen. The pancreas is normal. The adrenal glands are normal. The kidneys appear normal without evidence of hydronephrosis or hydroureter. The small and large bowel are normal in caliber without obstruction. No free intraperitoneal air or free fluid is identified. No mesenteric or retroperitoneal lymphadenopathy is seen. Musculoskeletal: No suspicious lytic or blastic lesions are identified. No abnormal FDG uptake is seen within the osseous structures. Marked degenerative changes of the left hip. Procedure Note Diandra Moseley, DO - 12/25/2021 PROCEDURE: PET/CT Study REFERRING PHYSICIAN: YOSI FOX MD HISTORY: 61F with thyroid cancer status post thyroidectomy and WARD. Evaluate for subsequent treatment strategy. TECHNIQUE: 8.3 mCi of F-18 FDG by IV in the right antecubital vein.PET/CT image acquisition from the top of the head to the feet afterapproximately 60 minutes post-injection with the CT being low-dose, non-contrast. No separate report for the CT was generated since it was of non-diagnostic quality. Blood glucose level at the time of injection was 101 mg/dL. BMI 28.90 kg/m2 COMPARISON: No prior study is available for comparison at the time ofthis dictation. FINDINGS: For reference, SUV max of the mediastinum is 2.9. SUV max of the liveris 3.9. Head and neck: No abnormal FDG uptake is seen in the brain. There are no significantly FDG avid or enlarged cervical lymph nodes. Postoperative findings from thyroidectomy are noted. There is marked hypermetabolic activity at the surgical site, more prominent on theleft, with SUV max on the right measuring 5.5 and SUV max on the leftmeasuring up to 17.1. Hypermetabolic activity is noted in the sublingual gland and in multiple right-sided muscles of the tongue, possibly reactive in nature. Chest: No abnormal FDG uptake is seen within the lungs. The lungs are free of focal consolidations. No suspicious pulmonary nodules are visible. Calcified granulomas are present in the right upper lobe and righthilum. There is no pleural effusion or pneumothorax. There is no supraclavicular, axillary, mediastinal or hilar lymphadenopathy. The heart size is normal. There is no pericardial effusion. Abdomen and pelvis: The liver is normal. The gallbladder is normal without evidence of gallstones. No intrahepatic or extrahepatic biliary ductal dilatation is seen. Calcified granulomas are present in the spleen. The pancreas is normal. The adrenal glands are normal. The kidneys appear normal without evidence of hydronephrosis or hydroureter. The small and large bowel are normal in caliber without obstruction. No free intraperitoneal air or free fluid is identified. No mesenteric or retroperitoneal lymphadenopathy is seen. Musculoskeletal: No suspicious lytic or blastic lesions are identified. No abnormal FDG uptake is seen within the osseous structures. Marked degenerativechanges of the left hip. IMPRESSION: 1. Marked hypermetabolic activity at the thyroidectomy site, more prominent on the left, concerning for residual disease. Recommend correlation with thyroid sonogram. This report was approved by Santhosh Esquivel on 12/25/2021 1:54 PM . I, Dr. DIANDRA MOSELEY D.O. have personally reviewed and interpreted this examination/study. This report was electronically signed by DIANDRA MOSELEY D.O. on12/25/2021 2:07 PM . Yosi Fox MD NM ORDERABLES documented in this encounter Visit Diagnoses Not on filedocumented in this encounter Care Teams Artificial Foliage Arranger Relationship Specialty Start Date End Date Taniya Grimes MD [address] 2L DIV OF [facility] [place] [address] PCP - General 07/01/20 05/10/22 Marylu Marie DO [address] 2L DIV OF [facility] [place] [address] Resident - PCP Student Resident 06/26/20 01/11/22 documented as of this encounter
--- OUTSIDE RECORDS SUMMARY | 2024-07-23 07:15 | XMS_ITS | Encounter Summary ---
Author Organization [facility] Health Address [address] [facility] [place] [address] Care Team Providers Care Director Business Development Name Role Phone Marylu Marie DO Unavailable Taniya Grimes MD Primary Care Provider Reason for Visit * Reason Onset Date Comments Medication Prior Auth Request 11/19/2021 Encounter Details Date Type Department Care Team (Late st Contact Info) Description 11/19/2021 Telephone [facility] [address] [place] [address], [place] [phone] Marylu Marie DO [facility] [address] OF [facility] INTERNAL MEDICINE [place], [place] [phone] Medication Prior Auth Request Social History Tobacco Use Types Packs/Day Years Used Date Smoking Tobacco: Light Smoker Cigarettes 0.3 51 Started: 07/22/1973 Smokeless Tobacco: Never Comments:3-4 cig a day Alcohol Use Standard Drinks/Week Comments No 0 (1 standard drink = 0.6 oz pur e alcohol) PHQ-2 Answer Date Recorded PHQ2 TOTAL SCORE 0 05/22/2021 Sex and Gender Information Value Date Recorded [...] Telephone Encounter - Mellisa Vargas LPN - 11/19/2021 3:05 PM CDT PA was denied by insurance. Pharmacy notified. * Telephone Encounter - Mellisa Vargas LPN - 11/19/2021 8:57 AM CDT Insurance requires prior auth for Pantoprazole. Prior auth request submitted on line at [facility]. Office notes submitted with request Yes. Waiting for insurance response. Cover My Meds perez:[id number] documented in this encounter Plan of Treatment Upcoming Encounters Date Type Department Care Team (Late st Contact Info) Description 07/25/2024 10:00 AM STRIP DEBURRER Office Visit [facility] - Endocrinology [address] [place] [phone] Yosi Bustamante MD [address] [place] [address] 2L Div [place] [address] 07/26/2024 10:00 AM STRIP DEBURRER Appointment [facility] RAD [address] [place] [phone] Neri Delgado MD [address] [place] [address] 07/26/2024 10:00 AM STRIP DEBURRER Office Visit [facility] [address] [place] [phone] Myra Farmer, CONCRETE SPREADER [address] [place] [address] 2L [place] [address] 07/26/2024 11:15 AM STRIP DEBURRER Office Visit [facility] [address] [place] [phone] Neri Delgado MD [address] [place] [address] 08/02/2024 2:20 PM STRIP DEBURRER Appointment [facility] [address] [place] [address] 08/02/2024 3:00 PM STRIP DEBURRER Office Visit [facility] - Hematology/Oncology [address] [place] [phone] Remi Beckett MD [address] [place] [phone] 08/18/2024 1:45 PM STRIP DEBURRER Office Visit [facility] [address] [place] [phone] Neri Delgado MD [address] [place] [address] documented as of this encounter Visit Diagnoses Not on filedocumented in this encounter Care Teams Director Business Development Relationship Specialty Start Date End Date Taniya Grimes MD [address] [place] [address] 2L DIV OF [facility] [place] [address] PCP - General 07/01/20 05/10/22 Marylu Marie DO [address] [place] [address] 2L DIV OF [facility] [place] [address] Resident - PCP Student Resident 06/26/20 01/11/22 documented as of this encounter
--- OUTSIDE RECORDS SUMMARY | 2024-07-23 07:15 | XMS_ITS | Encounter Summary ---
Author Organization [facility] Health Address [address] [facility] [place] [address] Care Team Providers Care Market Survey Representative Name Role Phone Marylu Marie DO Unavailable [phone] Taniya Grimes MD Primary Care Provider [phone] Reason for Visit * Reason Comments Pain Arm left arm pain Encounter Details Date Type Department Care Team (Late st Contact Info) Description 12/18/2021 1:30 PM CDT Office Visit [facility] General Internal Medicine [address] [facility] [place] [address] Wilma Briceño MD [address] [place], [place] [phone] Arm weakness (Primary Dx) Social History Tobacco Use Types [...] Sign Reading Time Taken Comments Blood Pressure 116/78 12/18/2021 1:47 PM CDT Pulse 79 12/18/2021 1:47 PM CDT Temperature 36.5 ??C (97.7 ??F) 12/18/2021 1:47 PM CD T Respiratory Rate - - Oxygen Saturation 95% 12/18/2021 1:47 PM CDT Inhaled Oxygen Concentration - - Weight 71.7 kg (158 lb) 12/18/2021 1:47 PM CDT Height 157.5 cm (5' 2) 12/18/2021 1:47 PM CDT Body Mass Index 28.9 12/18/2021 1:47 PM CDT documented in this encounter Functional [...] this encounter Patient Instructions * Patient Instructions* Jessica Shukla - 12/18/2021 1:47 PM CDT [facility] Internal Medicine is a Patient Centered Medical Home (PCMH) recognized practice. PCMH is a model of care that puts patients at the forefront of care. PCM centers build better relationships between patients and their clinical care teams. Practices that earn this recognition have made a commitment to continuous quality improvement and a patient-centered approach to care. [facility] Internal Medicine is committed to providing you with the best care possible. Shared decision making is a perez component of patient-centered health care. It is a process in whichclinicians and patients work together to make decisions based on clinical evidence that balances risk and expected outcomes with patient preferences and values. How to Contact Us Between Office Visits For scheduling routine appointments, requesting refills or leaving a message for your doctor, the office phone is [phone]. You will be given options to get to the assistance you need. We have both in person and telehealth (telephone and video) appointments available. Phone lines are open from 8:00 am to 4:30 pm Wednesday through Wednesday. If you become ill and need to be seen before your next visit, we will generally be able to see you that day, although you may see someone other than your own primary care provider. Please call us at [phone], option 1, then option 1 in the morning you would like to be seen. Our fax number is [phone]. Instructions for reaching the practice after office hours For urgent concerns that cannot wait until phone lines are open on the next business day, please call [phone] to speak to the covering General Internal Medicine provider. Identify yourself as a patient in our practice and give the planishing hammer operator your doctor's name. The planishing hammer operator will contact the physician economic adviser. You can generally expect a return call within 30 minutes. Prescription Refills Contact your pharmacy to request all refills. You may also send a [employer] message for refills. Please allow a minimum of 48-72 hours for your prescription to be completed. Your pharmacy will notify you when your prescription is ready to be picked up. SCHEDULE YOUR OWN APPOINTMENT AT [facility] We are excited to announce that some [facility] appointments can now be scheduled online. If you are not able to access the type of appointment that you need using this service, our [facility] Scheduling department will be happy to continue to serve you. Use one of these options to schedule your next appointment today: Access self-scheduling options by visiting the [facility] Online Scheduling Webpage. Make an appointment by calling [facility] Central [phone] Visit our website at [email or web address] for information about our practice and an interactive health encyclopedia. documented in this encounter Progress Notes * Wilma Briceño MD - 12/18/2021 2:00 PM CDT [facility] General Internal Medicine Acute Care Patient Note CC: Chief Complaint Patient presents with ??? Pain Arm left arm pain History of Present Illness: Brisa Hogan is a 61 year old female presenting to [facility] for arm pain. Has had chronic arm pain for years, previously negative xr Has focal weakness in L arm, and has neuropathy in arm Has numbness and tingling in thumb On gabapentin tid, at nights takes 2 Is home bound due to hip pain Pt complains of some urge incontinence, has urgency and unable to get the stream going Pt has been using someone elses muscle relaxant nightly Recent fall 2-3 weeks ago, tripped when reaching for walker around the corner, hit her arm, no LOC no head injury Colonoscopy order in place (times on in 05/2022) Past Medical History: Reviewed and updated in Epic History tab Past Surgical History: Reviewed and updated in Epic History tab Family History: Reviewed and updated in Epic History tab Social History: Reviewed and updated in Epic History tab Medications: Reviewed and updated in Epic Medications tab Current Outpatient Medications on File Prior to Visit Medication Sig Dispense Refill ??? acetaminophen (TYLENOL) 500 MG tablet Take 1,000 mg by mouth every 8 hours as needed ??? atorvastatin (LIPITOR) 40 MG tablet TAKE 1 TABLET BY MOUTH EVERYDAY AT BEDTIME 30 tablet 3 ??? cetirizine (ZYRTEC) 10 MG tablet Take 1 (one) tablet by mouth once daily 30 tablet 5 ??? clonazePAM (KLONOPIN) 0.5 MG tablet Take 1.5 (one and one-half) tablets by mouth once daily ??? famotidine (PEPCID) 20 MG tablet Take 20 mg by mouth 2 times daily as needed ??? fluticasone propionate (FLONASE) 50 MCG/ACT nasal spray Chicken 2 (two) sprays into each nostril once daily 48 g 0 ??? gabapentin (NEURONTIN) 300 MG capsule TAKE 1 CAPSULE BY MOUTH THREE TIMES A DAY 90 capsule 5 ??? IHWPLY-VIMLWJNAB-WXJ-C-HYAL PO Take 1 tablet by mouth 3 [...] pantoprazole EC (PROTONIX) 40 MG tablet TAKE 1 TABLET BY MOUTH DAILY FOR STOMACH 30 tablet 3 ??? PARoxetine (PAXIL) 40 MG tablet 2 ??? thyrotropin tayo (THYROGEN) injection Inject 0.9 mg into muscle every 24 hours for 2 doses Reasons: Cancer of Thyroid 2 mL 0 ??? traZODone (DESYREL) 50 MG tablet Take 50 mg by mouth at bedtime ??? vitamin E (TOCOPHERYL) 200 UNIT capsule Take 200 Units by mouth 3 times daily No current facility-administered medications on file prior to visit. Allergies: Reviewed and updated in Epic Allergies tab Review of Systems: Bold if positive; otherwise negative Gen: fevers, chills, unintentional weight change Eyes: change in vision, blurry vision Ears: change in hearing, tinnitus, ear pain Throat: dysphagia, sore throat Nose: rhinorrhea, nasal pain Neck: difficulty turning neck, neck masses/lumps CV: chest pain, palpitations, edema Pulm: SOB, CESPEDES, cough GI: abd pain, nausea, vomiting, diarrhea, constipation, melena, BRBPR : dysuria, hematuria, urinary frequency, urinary urgency, urinary incontinence MS: generalized arthralgias, generalized myalgias, back pain Neuro: focal weakness, numbness/tingling, LOC, lightheadedness, vertigo Skin: rash Heme: easy bruising Endocrine: heat intolerance;cold intolerance, polyuria, polydipsia Physical Exam: BP 116/78 Pulse 79 Temp 97.7 ??F (36.5 ??C) (Temporal) Ht 5' 2 (1.575 m) Wt 158 lb (71.7 kg) SpO2 95% BMI 28.9 kg/m2 Gen: NAD, conversational, pleasant, cooperative Eyes: EOMI; PERRLA; anicteric, non-injected sclerae Neck: supple with normal ROM; no thyromegaly, no LAD CV: normal S1, S2; RRR; no MRGs appreciated; no LE edema bilaterally Pulm: CTAB; no wheezes or crackles GI: abd soft, NT to palpation; +BS; no HSM, no guarding or rebound MS: no muscle atrophy noted, however b/l triceps with poor muscle tone Neuro: CN II-XII grossly intact; 5/5 strength in bilateral UE, LE; no focal neurologic deficits Psych: AOx3; calm, congruent affect Skin: no rashes appreciated Labs: Personally reviewed. Imaging/Other diagnostic testing: Personally reviewed. Assessment & Plan: Arm weakness Mechanical fall -pt noted to be severely deconditioned, has sedentary lifestyle. Exam without focal weakness -referral place to physical therapy -strongly advised patient avoid muscle relaxants especially since she had a recent mechanical fall Patient discussed with attending physician, Dr. Finch, who agrees with my assessment and plan. RTC as previously scheduled with PCP. Note routed to PCP Wilma Briceño MD 12/18/2021 2:00 PM Associated attestation - Alejo Finch III, MD - 12/26/2021 8:58 AM CDT Attending Physician Attestation I discussed the patient and reviewed the resident's note at the time of the visit and I agree with history, physical exam, assessment, and plan. Date of service: 12/18/2021 Alejo Finch III, MD documented in this encounter Plan of Treatment Upcoming Encounters Date Type Department Care Team (Late st Contact Info) Description 07/25/2024 10:00 AM DIABETES SPECIALIST Office Visit [facility] - Endocrinology [address] [place] [phone] Yosi Bustamante MD [address] [place] [address] 2L Div [place] [address] 07/26/2024 10:00 AM DIABETES SPECIALIST Appointment [facility] [address] [place] [phone] Neri Delgado MD [address] [place] [phone] 07/26/2024 10:00 AM DIABETES SPECIALIST [facility] [address] [place] [phone] Myra Farmer, CNA CAREGIVER [address] [place] [address] 2L [place] [phone] 07/26/2024 11:15 AM DIABETES SPECIALIST Office Visit [facility] - ENT [address] [place] [phone] Neri Delgado MD [address] [place] [address] 08/02/2024 2:20 PM DIABETES SPECIALIST Appointment [facility] [address] [place] [address] 08/02/2024 3:00 PM DIABETES SPECIALIST Office Visit [facility] - Hematology/Oncology [address] [place] [phone] [place] [address] [place] [phone] 08/18/2024 1:45 PM DIABETES SPECIALIST Office Visit [facility] - ENT [address] [place] [phone] Neri Delgado MD [address] [place] [phone] documented as of this encounter Visit Diagnoses Diagnosis Arm weakness- Primary Other musculoskeletal symptoms referable to limbs documented in this encounter Care Teams Market Survey Representative Relationship Specialty Start Date End Date Taniya Grimes MD [address] [place] [address] 2L DIV OF [facility] [place] [address] PCP - General 07/01/20 05/10/22 Marylu Marie DO [address] [place] [address] 2L DIV OF [facility] [address] Resident - PCP Student Resident 06/26/20 01/11/22 documented as of this encounter
--- OUTSIDE RECORDS SUMMARY | 2024-07-23 07:15 | XMS_ITS | Encounter Summary ---
Author Organization [facility] Health Address [address] [place] [address] Care Team Providers Care Roll Operator Name Role Phone Marylu Marie DO Unavailable [phone] Taniya Grimes MD Primary Care Provider Encounter Details Date Type Department Care Team (Latest Contact Info) Description 12/08/2021 Travel Social History Tobacco Use Types Packs/Day [...] st Contact Info) Description 07/25/2024 10:00 AM STRETCHING MACHINE TENDER FRAME Office Visit [facility] - Endocrinology [address] [facility] [place] [phone] Yosi Bustamante MD [address] [place] [address] 2L [place] [address] 07/26/2024 10:00 AM STRETCHING MACHINE TENDER FRAME Appointment [facility] [address] [place] [phone] Neri Delgado MD [address] [place] [address] 07/26/2024 10:00 AM STRETCHING MACHINE TENDER FRAME Office Visit [facility] - ENT [address] [place] [phone] Myra Farmer, CRIMINAL INTELLIGENCE SPECIALIST [address] [place] [address] 2L [place] [phone] 07/26/2024 11:15 AM STRETCHING MACHINE TENDER FRAME Office Visit [facility] - ENT [address] [place] [phone] Neri Delgado MD [address] [place] [phone] 08/02/2024 2:20 PM STRETCHING MACHINE TENDER FRAME Appointment [facility] [address] [place] [address] 08/02/2024 3:00 PM STRETCHING MACHINE TENDER FRAME Office Visit [facility] - Hematology/Oncology [address] [place] [phone] Remi Beckett MD [address] [place] [phone] 08/18/2024 1:45 PM STRETCHING MACHINE TENDER FRAME Office Visit [facility] - ENT [address] [place] [phone] Neri Delgado MD [address] [place] [address] [place] [address] documented as of this encounter Visit Diagnoses Not on filedocumented in this encounter Care Teams Roll Operator Relationship Specialty Start Date End Date Taniya Grimes MD [address] [facility] 2L DIV OF [facility] [place] [address] PCP - General 07/01/20 05/10/22 Marylu Marie DO [address] [facility] 2L DIV OF [facility] [place] [address] Resident - PCP Student Resident 06/26/20 01/11/22 documented as of this encounter
--- OUTSIDE RECORDS SUMMARY | 2024-07-23 07:15 | XMS_ITS | Encounter Summary ---
Author Organization [facility] Address [address] [place] [address] Care Team Providers Care Rackman Name Role Phone Marylu Marie DO Unavailable [phone] Taniya Grimes MD Primary Care Provider Reason for Referral * Radiology Services (Routine) - Closed Specialty Diagnoses / Procedures Referred By Contac t Referred To Contact Positron Emission Tomography Diagnoses Thyroid cancer (HCC) Postoperative hypothyroidism Procedures PET CT WHOLE BODY Yosi Fox MD [address] [place] [address] 2[place] [address] [facility] Pet Op [address] [place] [address] Referral ID Status Reason Start Date Expiration Date Visits Re quested Visits Authorized [id number] Closed 12/22/2021 12/22/2022 1 1 Encounter Details Date Type Department Care Team (Late st Contact Info) Description 12/10/2021 Orders Only [facility] End[facility]ology, Diabetes and Metabolism [address] [facility] [place] [address] Yosi Fox MD [address] [place] [address] 2[place] [address] Thyroid cancer (HCC) ; Postoperative hypothyroidism Social [...] st Contact Info) Description 07/25/2024 10:00 AM VP DESIGN Office Visit [facility] - Endocrinology [address] [place] [phone] Yosi Fox MD [address] [place] [address] 2L [place] [address] 07/26/2024 10:00 AM VP DESIGN Appointment [facility] DI[facility] RAD [address] [place] [address] Neri Delgado MD [address] [place] [address] 07/26/2024 10:00 AM VP DESIGN Office Visit [facility] - ENT [address] [place] [phone] Myra Farmer, BRAZING FURNACE OPERATOR [address] [place] [address] 2L [place] [phone] 07/26/2024 11:15 AM VP DESIGN Office Visit [facility] - ENT [address] [place] [phone] Neri Delgado MD [address] [place] [address] 08/02/2024 2:20 PM VP DESIGN Appointment [facility] [address] [place] [address] 08/02/2024 3:00 PM VP DESIGN Office Visit [facility] - Hematology/Oncology [address] [place] [phone] Remi Beckett MD [address] [place] [phone] 08/18/2024 1:45 PM VP DESIGN Office Visit [facility] - ENT [address] [place] [phone] Neri Delgado MD [address] [place] [address] documented as of this encounter Results * PET CT WHOLE [...] hypothyroidism documented in this encounter Care Teams Rackman Relationship Specialty Start Date End Date Taniya Grimes MD [address] 2L DIV OF [facility] [place] [address] PCP - General 07/01/20 05/10/22 Marylu Marie DO [address] 2L DIV OF [facility] [place] [address] Resident - PCP Student Resident 06/26/20 01/11/22 documented as of this encounter
--- OUTSIDE RECORDS SUMMARY | 2024-07-23 07:15 | XMS_ITS | Encounter Summary ---
Author Organization [facility] Health Address [address] [facility] [place] [address] Care Team Providers Care Information Writer Name Role Phone Marylu Marie DO Unavailable Taniya Grimes MD Primary Care Provider [phone] Encounter Details Date Type Department Care Team (Latest Contact Info) Description 12/08/2021 8:53 AM CDT - 12/08/2021 11:59 PM CDT Hospital Encounter [facility] LAB OP DRAW STATION [address] [place] [phone] Discharge Disposition: Home or Self Care Social [...] fluticasone propionate (FLONASE) 50 MCG/ACT nasal spray [place] 2 (two) sprays into each nostril once daily 48 g 10/20/2021 11/25/2022 gabapentin (NEURONTIN) 300 MG capsuleIndications:Prima ry osteoarthritis of left hip TAKE 1 CAPSULE BY MOUTH THREE TIMES A DAY 90 capsule 5 10/08/2021 04/06/2022 [id number] YAL PO Take 1 tablet by mouth [...] st Contact Info) Description 07/25/2024 10:00 AM MOLDER PUNCH Office Visit [facility] - Endocrinology [address] [place] [phone] Yosi Bustamante MD [address] [place] [address] 2L Div [place] [address] 07/26/2024 10:00 AM MOLDER PUNCH Appointment [facility] DIAGNOSTIC RAD [address] [place] [address] Neri Delgado MD [address] [place] [address] 07/26/2024 10:00 AM MOLDER PUNCH Office Visit [facility] - ENT [address] [place] [phone] Myra Farmer, AWS ARCHITECT [address] [place] [address] 2L [place] [address] 07/26/2024 11:15 AM MOLDER PUNCH Office Visit [facility] - ENT [address] [place] [phone] Neri Delgado MD [address] [place] [address] 08/02/2024 2:20 PM MOLDER PUNCH Appointment [facility] [address] [place] [address] 08/02/2024 3:00 PM MOLDER PUNCH Office Visit [facility] - Hematology/Oncology [address] [place] [phone] Remi Beckett MD [address] [place] [phone] 08/18/2024 1:45 PM MOLDER PUNCH Office Visit [facility] - ENT [address] [place] [phone] Neri Delgado MD [address] [place] [phone] documented as of this encounter Procedures Procedure Name Priority Date/Time Associated Diagnosis Comments THYROGLOBULIN REFLEX PROFILE Routine 12/08/2021 9:12 AM CDT Postoperative hypothyroidism Thyroid cancer (HCC) Hypocalcemia Other hypoparathyroidism THYROGLOBULIN BY ANTONIETA RFLXED Routine 12/08/2021 9:12 AM CDT Postoperative hypothyroidism Thyroid cancer (HCC) Hypocalcemia Other hypoparathyroidism TSH REFLEX FREE T4 Routine 12/08/2021 9: 12 AM CDT Postoperative hypothyroidism RENAL FUNCTION PANEL Routine 12/08/2021 9:12 AM CDT Postoperative hypothyroidism Thyroid cancer (HCC) Hypocalcemia Other hypoparathyroidism T4 FREE Routine 12/08/2021 9:12 AM CDT Postoperative hypothyroidism documented in this encounter Results * THYROGLOBULIN BY ANTONIETA RFLXED (12/08/2021 9:12 AM CDT) Thyroglobulin by ANTONIETA 26.9 1.5 - 38.5 ng/mL 12/10/2021 1:06 AM CDT [facility] ([facility]) Comment: According to the National Academy of [...] is 0.1 ng/mL Thyroglobulin measured by Lisbet Butler Immunometric Assay Blood BLOOD SPECIMEN / Unknown Lab Venipuncture / Unknown 12/08/2021 9:12 AM CDT 12/08/2021 9:51 AM CDT Narrative [facility] ([facility]) - 12/10/2021 1:06 AM CDT Performed at: ??01 - [facility] [address] [place], [place] ??[id number] Motor Vehicle Salesperson: Oral Melendez PhD, Phone: ??[phone] Yosi Bustamante MD LAB - CHEMISTRY ORD ERABLES Performing Organization Address City/[facility] Co de Phone Number [facility]) [address] [place] [address] * T4 FREE (12/08/2021 9:12 AM CDT) T4 Free 1.2 0.7 - 1.5 ng/dL 12/08/2021 10:50 AM CDT [facility] Blood BLOOD SPECIMEN / Unknown Lab Venipuncture / Unknown 12/08/2021 9:12 AM CDT 12/08/2021 9:25 AM CDT Yosi Bustamante MD LAB - CHEMISTRY ORD ERABLES [facility] [address] [place] [address], [facility] [phone] * (ABNORMAL) RENAL FUNCTION PANEL (12/08/2021 9:12 AM CDT) BUN 16 7 - 26 mg/dL 12/08/2021 10:17 AM CDT [facility] Creatinine 0.82 0.56 - 0.96 mg/dL 12/08/2021 10:17 AM CDT [facility] Sodium 140 136 - 145 mmol/L 12/08/2021 10:17 AM [facility] Potassium 4.6(H) 3.5 - 4.5 mmol/L 12/08/2021 10:17 AM [facility] Chloride 106 98 - 107 mmol/L 12/08/2021 10:17 AM [facility] CO2 22 22 - 29 mmol/L 12/08/2021 10:17 AM [facility] Glucose 95 70 - 115 mg/dL 12/08/2021 10:17 AM [facility] Albumin 4.0 3.4 - 5.0 g/dL 12/08/2021 10:17 AM [facility] Calcium 8.0(L) 8.4 - 10.2 mg/dL 12/08/2021 10:17 AM [facility] Phosphorus 4.9 2.9 - 5.1 mg/dL 12/08/2021 10:17 AM [facility] Anion Gap 17 8 - 18 12/08/2021 10:17 AM [facility] BUN/Creatinine Ratio 20 7 - 23 12/08/2021 10:17 AM [facility] Osmolality Calculated 291 270 - 300 mOsm/kg 12/08/2021 10:17 AM [facility] eGFR by CKD-EPI 80(L) >=90 mL/min/1.7 3 m2 12/08/2021 10:17 AM [facility] Blood BLOOD SPECIMEN / Unknown Lab Venipuncture / Unknown 12/08/2021 9:12 AM CDT 12/08/2021 9:25 AM T Yosi Bustamante MD LAB - CHEMISTRY ORD ERABLES [facility] [address] [place] [phone], [facility] [phone] * THYROGLOBULIN REFLEX PROFILE (12/08/2021 9:12 AM T) Thyroglobulin Antibody <1.0 0.0 - 0.9 IU/mL 12/10/2021 1:06 AM T [facility] ([facility]) Comment:Thyroglobulin Antibo dy measured by Lisbet Butler Methodology Blood BLOOD SPECIMEN / Unknown Lab Venipuncture / Unknown 12/08/2021 9:12 AM CDT 12/08/2021 9:51 AM CDT Narrative [facility] ([facility]) - 12/10/2021 1:06 AM CDT Performed at: ??01 - [facility] [address] [facility], [place], [place] ??[id number] Motor Vehicle Salesperson: Oral Melendez PhD, Phone: ??[phone] Yosi Bustamante MD LAB - CHEMISTRY ORD ERABLES [facility] ([facility]) [address] [place] [address] * (ABNORMAL) TSH REFLEX FREE T4 (12/08/2021 9:12 AM CDT) TSH <0.010(L) 0.350 - 4.940 uIU/mL 12/08/2021 10:17 AM CDT [facility] Blood BLOOD SPECIMEN / Unknown Lab Venipuncture / Unknown 12/08/2021 9:12 AM CDT 12/08/2021 9:25 AM CDT Yosi Bustamante MD LAB - CHEMISTRY ORD ERABLES [facility] LABORATORY [facility] [address] [place] [address], [facility] [phone] documented in this encounter Visit Diagnoses Diagnosis Postoperative hypothyroidism- Primary Postsurgical hypothyroidism Thyroid cancer (HCC) Malignant neoplasm of thyroid gland Hypocalcemia Other hypoparathyroidism (HCC) documented in this encounter Care Teams Information Writer Relationship Specialty Start Date End Date Taniya Grimes MD [facility] 2L DIV OF [facility] [place] [phone] PCP - General 07/01/20 05/10/22 Marylu Marie DO [facility] 2L DIV OF [facility] [place] [address] Resident - PCP Student Resident 06/26/20 01/11/22 documented as of this encounter
--- OUTSIDE RECORDS SUMMARY | 2024-07-23 07:15 | XMS_ITS | Encounter Summary ---
Author Organization [facility] Health Address [address] [facility] [place] [address] Care Team Providers Care Stacker Tender Name Role Phone Marylu Marie DO Unavailable Taniya Grimes MD Primary Care Provider Reason for Visit * Reason Onset Date Comments Pain Arm 12/16/2021 Numbness 12/16/2021 TINGLING 12/16/2021 Encounter Details Date Type Department Care Team (Late st Contact Info) Description 12/16/2021 Telephone [facility] [address] [place] [address], [place] [address] Taniya Grimes MD [address] [place] [address] OF [facility] [place] [phone] Pain Arm; Numbness; TINGLING Social History Tobacco Use Types Packs/Day Years [...] Miscellaneous Notes * Telephone Encounter - Lexii Brown RN - 12/16/2021 1:24 PM CDT Images from the original note were not included. Called Nolvia in scheduling 0918 and informed of message below from provider and states will call [email or web address]. Wilma Briceño MD You 2 hours ago (10:32 AM) SH Hi there Can you schedule patient for 1:30 or 2? There???s a 2+hour gap in my schedule. Thank you * Telephone Encounter - Lexii Brown RN - 12/16/2021 8:59 AM CDT Pt states constant left shoulder/arm pain since 12/12; thinks 'pulled something'; intermittent numbness and tingling left thumb. States tylenol 1000mg 3x/day and gabapentin 300 mg 3x/day not effective. Denies discoloration/swelling in arm/hand. States has been taking baclofen 20 mg 1x/day if pain severe that borrowed from family member. Instructed not to take since not prescribed for her. Requests appt 12/18 so set up with Dr Briceño at 330 pm. Denies covid symptoms (except shoulder/arm pain), positive covid test, known exposure to anyone with covid. Instructed to alternate heat and ice to arm; go to urgent care if pain increases before 12/18 and states understanding. . Sending to provider as fyi. documented in this encounter Plan of Treatment Upcoming Encounters Date Type Department Care Team (Late st Contact Info) Description 07/25/2024 10:00 AM PR SPECIALIST Office Visit [facility] [place] [address] Yosi Bustamante MD [address] [place] [address] 2L [place] [address] 07/26/2024 10:00 AM PR SPECIALIST Appointment [facility] DIAGNOSTIC RAD [address] [place] [address] Neri Delgado MD [address] [place] [address] 07/26/2024 10:00 AM PR SPECIALIST Office Visit [facility] - ENT [address] [place] [phone] Myra Farmer, ALCOHOL STILL OPERATOR [address] [place] [address] 2L [place] [phone] 07/26/2024 11:15 AM PR SPECIALIST Office Visit [facility] - ENT [address] [place] [phone] Neri Delgado MD [address] [place] [address] 08/02/2024 2:20 PM PR SPECIALIST Appointment [facility] [address] [place] [address] 08/02/2024 3:00 PM PR SPECIALIST Office Visit [facility] - Hematology/Oncology [address] [place] [phone] Remi Beckett MD [address] [place] [phone] 08/18/2024 1:45 PM PR SPECIALIST Office Visit [facility] - ENT [address] [place] [phone] Neri Delgado MD [address] [place] [address] documented as of this encounter Visit Diagnoses Not on filedocumented in this encounter Care Teams Stacker Tender Relationship Specialty Start Date End Date Taniya Grimes MD [address] [facility] 2L DIV OF [facility] [place] [address] PCP - General 07/01/20 05/10/22 Marylu Marie DO [address] [facility] 2[place] [address] Resident - PCP Student Resident 06/26/20 01/11/22 documented as of this encounter
--- OUTSIDE RECORDS SUMMARY | 2024-07-23 07:15 | XMS_ITS | Encounter Summary ---
Author Organization [facility] Address [address] [place] [address] Care Team Providers Care Lightning Protection Installer Name Role Phone Marylu Marie DO Unavailable Taniya Grimes MD Primary Care Provider Reason for Referral * Radiology Services (Routine) - Closed Specialty Diagnoses / Procedures Referred By Tuac t Referred To Contact Positron Emission Tomography Diagnoses Thyroid cancer (HCC) Postoperative hypothyroidism Procedures PET CT WHOLE BODY Yosi Fox MD [address] [place] [address] 2[address] [place] [address] [facility] Pet Op [address] [place] [address] Referral ID Status Reason Start Date Expiration Date Visits Re quested Visits Authorized [id number] Closed 12/22/2021 12/22/2022 1 1 Reason for Visit * Radiology Services (Routine) - Closed Specialty Diagnoses / Procedures Referred By Contac t Referred To Contact Positron Emission Tomography Diagnoses Thyroid cancer (HCC) Postoperative hypothyroidism Procedures PET CT WHOLE BODY Yosi Fox MD [address] [place] [address] [address] [place] [address] [facility] Pet Op [address] [place] [address] Referral ID Status Reason Start Date Expiration Date Visits Re quested Visits Authorized [id number] Closed 12/22/2021 12/22/2022 1 1 Encounter Details Date Type Department Care Team (Latest Contact Info) Description 12/25/2021 11:14 AM CDT - 12/25/2021 11:26 AM CDT Hospital Encounter [facility] PET [address] [place] [address] Yosi Fox MD [address] [place] [address] Discharge Disposition: Home or Self Care Social [...] fluticasone propionate (FLONASE) 50 MCG/ACT nasal spray [place] 2 (two) sprays into each nostril once daily 48 g 10/20/2021 11/25/2022 gabapentin (NEURONTIN) 300 MG capsuleIndications:Prima ry osteoarthritis of left hip TAKE 1 CAPSULE BY MOUTH THREE TIMES A DAY 90 capsule 5 10/08/2021 04/06/2022 [id number]-C-H YAL PO Take 1 tablet by mouth [...] st Contact Info) Description 07/25/2024 10:00 AM BOOKS SALESPERSON Office Visit [facility] - Endocrinology [address] [place] [phone] Yosi Fox MD [address] [place] [address] 2L [place] [address] 07/26/2024 10:00 AM BOOKS SALESPERSON Appointment [facility] DIAGNOSTIC RAD [address] [place] [address] Neri Delgado MD [address] [place] [address] 07/26/2024 10:00 AM BOOKS SALESPERSON Office Visit [facility] - ENT [address] [place] [phone] Myra Farmer, MECHANICAL ORDNANCE ASSEMBLER [address] [place] [address] 2L [place] [address] 07/26/2024 11:15 AM BOOKS SALESPERSON Office Visit [facility] - ENT [address] [place] [phone] Neri Delgado MD [address] [place] [address] 08/02/2024 2:20 PM BOOKS SALESPERSON Appointment [facility] [address] [place] [address] 08/02/2024 3:00 PM BOOKS SALESPERSON Office Visit [facility] - Hematology/Oncology [address] [place] [phone] Remi Beckett MD [address] [place] [phone] 08/18/2024 1:45 PM BOOKS SALESPERSON Office Visit [facility] - ENT [address] [place] [phone] Neri Delgado MD [address] [place] [phone] documented as of this encounter Procedures Procedure Name Priority Date/Time Associated Diagnosis Comments PET CT WHOLE BODY Routine 12/25/2021 1:2 3 PM CDT Thyroid cancer (HCC) Postoperative hypothyroidism GLUCOSE SCREEN - POCT (IP) [facility] STAT 12/25/2021 11:56 AM CDT documented in this encounter Results [...] the left hip. Procedure Note Diandra Moseley, - 12/25/2021 PROCEDURE: PET/CT Study REFERRING PHYSICIAN: [...] Santhosh Esquivel on 12/25/2021 1:54 PM . IDr. DIANDRA D.O. have personally reviewed and interpreted this examination/study. This report was electronically signed by DIANDRA MOSELEY D.O. on12/25/2021 2:07 PM . Yosi Fox MD [place] ORDERABLES * GLUCOSE SCREEN - POCT (IP) [facility] (12/25/2021 11:56 AM CDT) Glucose WB/POC 101 70 - 115 mg/dL [facility] POCT TESTING Blood BLOOD SPECIMEN / Unknown 12/25/2021 11:56 AM CDT Yosi Fox MD LAB - POINT OF CARE ORDERABLES [facility] POCT TESTING [address] [place] [address], [facility] [phone] documented in this encounter Visit Diagnoses Diagnosis Thyroid cancer (HCC) Malignant neoplasm of thyroid gland Postoperative hypothyroidism Postsurgical hypothyroidism documented in this encounter Administered Medications Inactive Administered Medications - up to 3 most recent administrations Medication Order MAR Action Action Date Dose Rate Site F-18 fludeoxyglucose (FDG) injection SOLN 8.3 millicurie 8.3 millicurie, Intravenous, ONCE, 1 dose, On Josi 12/25/21 at 1215 $ Given 12/25/2021 11:57 AM CDT 8.3 millicuries documented in this encounter Care Teams Lightning Protection Installer Relationship Specialty Start Date End Date Taniya Grimes MD [address] [facility] 2L DIV OF [facility] [place] [address] PCP - General 07/01/20 05/10/22 Marylu Marie DO [address] [facility] 2L DIV OF [facility] [place] [address] Resident - PCP Student Resident 06/26/20 01/11/22 documented as of this encounter
--- OUTSIDE RECORDS SUMMARY | 2024-07-23 07:15 | XMS_ITS | Encounter Summary ---
Author Organization [facility] Health Address [address] [place] [address] Care Team Providers Care Fish Farm Manager Name Role Phone Marylu Marie DO Unavailable Taniya Grimes MD Primary Care Provider Reason for Visit * Reason Comments Thyroid Problem THYROID CANCER HYPOT HYROIDISM Encounter Details Date Type Department Care Team (Latest Contact Info) Description 12/08/2021 8:00 AM CDT Office Visit [facility] Endocrinology, Diabetes and Metabolism [address] [place] [address], [place] [phone] Yosi Bustamante MD [address] [place] [address] [place] [address] Postoperative hypothyroidism (Primary Dx); Thyroid cancer (HCC); [...] Sign Reading Time Taken Comments Blood Pressure 132/76 12/08/2021 8:17 AM CDT Pulse 77 12/08/2021 8:17 AM CDT Temperature 36.1 ??C (96.9 ??F) 12/08/2021 8:17 AM CD T Respiratory Rate - - Oxygen Saturation 96% 12/08/2021 8:17 AM CDT Inhaled Oxygen Concentration - - Weight 70.9 kg (156 lb 6.4 oz) 12/08/2021 8:17 A M CDT Height 157.5 cm (5' 2) 12/08/2021 8:17 AM CDT Body Mass Index 28.61 12/08/2021 8:17 AM CDT documented in this encounter Functional [...] * Patient Instructions* Yosi Bustamante MD - 12/08/2021 8:13 AM CDT If you have an Insulin Pump, Meter or a Continuous Glucose Monitor, please BRING IT TO EVERY VISIT and present it to the Endo rooming staff when you arrive in clinic. APPOINTMENTS: option 1 or you can send a [employer] message. Normal business hours are from 8:00 am to 4:30 pm Wednesday through Wednesday. Fax# is [phone]. REFILL REQUESTS: contact your pharmacy who will reach out to us. If you have changes to your prescription, you will need to contact us directly at [phone] and select option 3 or send your [employer] message. We request that all prescription refills [...] next business day are given to the [facility] [employer] physician solar installation technician. Please call [phone] and identify yourself as a patient in our practice needing to speak to [employer]. The dry box operator will contact the physician solar installation technician. You can generally expect a return call within 30 minutes. On weekends, physicians are seeing hospitalized patients and there may be a longer wait. Test and laboratory results: Our practice typically reports lab and test results through letters orMyChart. Please allow 10 days from when your tests are completed to receive the results in the mail. Labs performed outside of [facility] facility, [facility] or [facility] may delay the results getting to us. Please contact the lab and request that they are faxed to us at [phone]. IF GOING TO [facility] or [facility]- TAKE LAB ORDER WITH YOU or they may turn you away [facility]'s missed appointment policy is: Patients with 3 consecutively missed appointments OR 3 missed appointments in a 12 month period will no longer be seen by Endocrinology. They will be asked to seek consultation outside of [facility]. A missed appointment is defined as: Arriving to a scheduled appointment too late to be seen (Patients who arrive to clinic later than their scheduled appointment time may not be seen) Not showing up or calling 24-48 hours prior to an appointment An appointment cancelled less than 24 hours in advance ADDRESS: [address] [place] [address], [place] [address] Website: [email or web address] for additional information about [facility] and an interactive health encyclopedia. BP 132/76 (BP SITE: RIGHT ARM, BP POSITION: SITTING, BP CUFF SIZE: 11) Pulse 77 Temp 96.9 ??F (36.1??C) (Temporal) Ht 5' 2 (1.575 m) Wt 156 lb 6.4 oz (70.9 kg) SpO2 96% BMI 28.61 kg/m2 PLAN LAB SOON STANDING ORDER FOR LAB EVERY THREE MONTHS WILL NEED STIMULATED TG AND NUC MED WHOLE BODY SCAN LATER THIS YEAR AFTER RECOVERY FROM HIP SURGERY CONTINUE CURRENT DOSE OF THYROID MEDICATION Instructions for taking levothyroxine Brand name is preferred Take thyroid pill all by itself Take thyroid pill one hour before food or 2 to 3 hours after food Heat, humidity, and direct sunlight will cause a loss of potency Never store thyroid pill in the bathroom THYROID ULTRASOUND NEXT VISIT RETURN IN SIX MONTHS CONTACT ORTHO SURGERY ABOUT HIP SURGERY SINCE IT HAS BEEN MORE THAN SIX MONTHS SINCE RADIOACTIVE IODINE TREATMENT THE DOSE OF THYROID MEDICATION SHOULD BE DECREASED. PLEASE TAKE YOUR THYROID MEDICATION FOLLOWS : Wednesday THROUGH Wednesday ONE PILL DAILY ON Wednesday NO THYROID PILL documented in this encounter Progress Notes * Yosi Bustamante MD - 12/08/2021 8:00 AM CDT HISTORY / PROGRESS NOTE Date: 12/08/2021 Chief Complaint or Purpose for Referral: THYROID CANCER HYPOTHYROIDISM HYPOPARATHYROIDISM HYPOCALCEMIA History of Present Illness: 61 YEAR OLD WHITE FEMALE ELE 10/08/2021 ELE TUS 10/08/2021 Noted neck mass and I instructed patient to come in today for examination Patient pointed to an area of anterior neck above thyroid bed Is on nicotine patch to quit smoking Going for second covid booster today Has not had hip surgery yet but is on different medication for hip Has not had lab yet Is taking thyroid medication 6/7 days per last instructions Reviewed lab results from past and plan for anatomic x rays if TG still elevated Showed prior TG levels and current values and stimulated values from prior thyrogen stimulation No dysphagia dyspnea(+) No dysphonia No change size of neck No neck pain or discomfort No nervousness No shakiness No palpitations Weight stable to slight increase Wt Readings from Last 3 Encounters: 12/08/21 156 lb 6.4 oz (70.9 kg) 10/29/21 153 lb 3.2 oz (69.5 kg) 10/24/21 149 lb (67.6 kg) BM daily No diarrhea No constipation nocturia 0-1 per night No edema No proximal muscle weakness LAB Latest Reference Range & Units 10/08/21 16:37 10/24/21 15:04 10/29/21 00:00 Sodium 136 - 145 mmol/L 141 141 Potassium 3.5 - 4.5 mmol/L 4.0 4.1 Chloride 98 - 107 mmol/L 104 105 CO2 22 - 29 mmol/L 23 24 Anion Gap 8 - 18 18 16 BUN 7 - 26 mg/dL 13 10 Creatinine 0.56 - 0.96 mg/dL 0.68 0.69 EGFR >=90 mL/min/1.73 m2 >90 >90 Glucose 70 - 115 mg/dL 127 (H) 97 Calcium 8.4 - 10.2 mg/dL 8.5 8.3 (L) Phosphorus 2.9 - 5.1 mg/dL 4.8 3.8 BUN/Creatinine Ratio 7 - 23 19 14 Albumin 3.4 - 5.0 g/dL 3.8 4.0 Osmolality Calculated 270 - 300 mOsm/kg 294 291 Vitamin D, 25 Hydroxy 30.0 - 80.0 ng/mL 35.0 [1] 36.0 [2] TSH 0.350 - 4.940 uIU/mL <0.010 (L) <0.010 (L) T4 Free 0.7 - 1.5 ng/dL 1.1 1.4 Thyroglobulin by ANTONIETA 1.5 - 38.5 ng/mL 17.9 [3] Thyroglobulin Antibody 0.0 - 0.9 IU/mL <1.0 [4] Specific [place] UA 1.015 PH UA 6.0 Protein UA - NEG Blood Urine POCT +- 10Ery/uL Ketones UA POCT - NEG Nitrite UA - NEG Glucose UA - NEG Bilirubin UA POCT -NEG Urobilinogen UA - 0.2 mg/dL WBC UA 3+ 500 [place]/uL [facility] Reference Range & Units 02/14/21 12:30 03/17/21 10:32 03/19/21 11:20 03/21/21 10:47 10/08/21 16:37 10/24/21 15:04 PTH Intact 8.0 - 77.0 pg/mL 8.0 - 77.0 pg/mL 37.8 45.1 53.9 42.1 40.5 TSH 0.350 - 4.940 uIU/mL 0.028 (L) <0.010 (L) 139.797 (H) [1] <0.010 (L) <0.010 (L) T4 Free 0.7 - 1.5 ng/dL 1.4 1.5 1.4 1.1 1.4 Thyroglobulin by ANTONIETA 1.5 - 38.5 ng/mL 1.9 [2] 1.7 [3] 7.9 [4] 8.4 [5] 17.9 [6] Thyroglobulin Antibody 0.0 - 0.9 IU/mL <1.0 [7] <1.0 [8] <1.0 [9] <1.0 [10] <1.0 [11] (Brief 1-3; Ext. 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: LARYNGOSCOPY; N/A Comment: N/A; DIRECT LARYNGOSCOPY [...] Not on file Tobacco Use Smoking status: Light Tobacco Smoker Packs/day: 0.25 Years: 40.00 Pack years: 10 Types: Cigarettes Start date: 07/22/1973 Smokeless tobacco: Never Used Tobacco comment: 3-4 cig a day Vaping Use Vaping Use: Never used Substance and Sexual Activity Alcohol use: No Drug use: Not Currently Types: Cocaine, Marijuana Comment: marijuana occasionally, last used 07/31/20, cocaine Sexual activity: Yes Partners: Male Other Topics [...] Not on file Current Outpatient Medications: acetaminophen (TYLENOL) 500 MG tablet, Take 1,000 mg by mouth every 8 hours as needed, Disp: , Rfl: atorvastatin (LIPITOR) 40 MG tablet, TAKE 1 TABLET BY MOUTH EVERYDAY AT BEDTIME, Disp: 30 tablet, Rfl: 3 cetirizine (ZYRTEC) 10 MG tablet, Take 1 (one) tablet by mouth once daily, Disp: 30 tablet, Rfl: 5 clonazePAM (KLONOPIN) 0.5 MG tablet, Take 1.5 (one and one-half) tablets by mouth once daily, Disp:, Rfl: famotidine (PEPCID) 20 MG tablet, Take 20 mg by mouth 2 times daily as needed, Disp: , Rfl: fluticasone propionate (FLONASE) 50 MCG/ACT nasal spray, Nettie 2 (two) sprays into each nostril once daily, Disp: 48 g, Rfl: 0 gabapentin (NEURONTIN) 300 MG capsule, TAKE 1 CAPSULE BY MOUTH THREE TIMES A DAY, Disp: 90 capsule,Rfl: 5 GNXBZK-LEFFCNBWH-YGP-C-HYAL PO, Take 1 tablet by mouth 3 times daily, Disp: , Rfl: levothyroxine (SYNTHROID) 112 MCG tablet, Take 1 (one) tablet by mouth once daily, Disp: 90 tablet,Rfl: 4 Misc Natural Products (NEURIVA PO), Take 2 capsules by mouth every morning, Disp: , Rfl: nicotine (NICODERM CQ) 14 MG/24HR patch, Apply 1 (one) patch to skin once daily, Disp: 30 patch, Rfl: 6 pantoprazole EC (PROTONIX) 40 MG tablet, TAKE 1 TABLET BY MOUTH DAILY FOR STOMACH, Disp: 30 tablet,Rfl: 3 PARoxetine (PAXIL) 40 MG tablet, , Disp: , Rfl: 2 thyrotropin tayo (THYROGEN) [...] Anaphylaxis Physical Exam: Constitutional: Vital Signs: BP 132/76 (BP SITE: RIGHT ARM, BP POSITION: SITTING, BP CUFF SIZE: 11)Pulse 77 Temp 96.9 ??F (36.1 ??C) (Temporal) Ht 5' 2 (1.575 m) Wt 156 lb 6.4 oz (70.9 kg) SpO2 96%BMI 28.61 kg/m2 Well developed, well nourished, white female, no acute distress, alert and oriented, normocephalic Appearance: WNL Eyes: Conjunctiva/lids WNL and EOM Intact ENT, Mouth: Hearing WNL and External ear/nose WNL Neck: No masses, symmetrical, Thyroid not enlarged and surg scar ant neck , mass that patient felt appears to be part of cartilage of trachea, no other lymph nodes in neck identified Resp.:Effort nonlabored Lymph: Neck WNL MS: Station and gait WNL, Stable without dislocation, laxity, ROM without pain, no contracture, Muscle strength and tone WNL and walks with cane Areas Assessed: Head/neck, R/L upper extremities, Digits/nails and Inspection/palpatation of above WNL Skin: skin normal texture and turgor Neuro: DTR WNL Psych: Judgement/insight WNL, Oriented X 3, Memory WNL and Mood/affect WNL Accuchecks: Not applicable Assessment: Patient Active Problem List: Psychophysiologic insomnia Chronic fatigue Snoring Obsessive-compulsive disorder Headache Primary osteoarthritis of left hip Nicotine dependence High cholesterol Other psoriasis Complete paralysis of right vocal cord Hoarseness Tracheal mass Lymphadenopathy of head and neck region Cellulitis Postoperative hypothyroidism Thyroid cancer Hypocalcemia Other hypoparathyroidism Neoplasm of uncertain behavior of skin Other seborrheic keratosis Depression, unspecified PLAN LAB SOON STANDING ORDER FOR LAB EVERY THREE MONTHS WILL NEED STIMULATED TG AND NUC MED WHOLE BODY SCAN LATER THIS YEAR AFTER RECOVERY FROM HIP SURGERY CONTINUE CURRENT DOSE OF THYROID MEDICATION Instructions for taking levothyroxine Brand name is preferred Take thyroid pill all by itself Take thyroid pill one hour before food or 2 to 3 hours after food Heat, humidity, and direct sunlight will cause a loss of potency Never store thyroid pill in the bathroom THYROID ULTRASOUND NEXT VISIT RETURN IN SIX MONTHS CONTACT ORTHO SURGERY ABOUT HIP SURGERY SINCE IT HAS BEEN MORE THAN SIX MONTHS SINCE RADIOACTIVE IODINE TREATMENT THE DOSE OF THYROID MEDICATION SHOULD BE DECREASED. PLEASE TAKE YOUR THYROID MEDICATION FOLLOWS : Wednesday THROUGH Wednesday ONE PILL DAILY ON Wednesday NO THYROID PILL Postoperative hypothyroidism - Plan: TSH, THYROGLOBULIN REFLEX PROFILE, RENAL FUNCTION PANEL Thyroid cancer - Plan: TSH, THYROGLOBULIN REFLEX PROFILE, RENAL FUNCTION PANEL Hypocalcemia - Plan: TSH, THYROGLOBULIN REFLEX PROFILE, RENAL FUNCTION PANEL Other hypoparathyroidism - Plan: TSH, THYROGLOBULIN REFLEX PROFILE, RENAL FUNCTION PANEL Yosi Bustamante MD Professor of Internal Medicine Division of Endocrinology Department of Internal Medicine documented in this encounter Plan of Treatment Upcoming Encounters Date Type Department Care Team (Late st Contact Info) Description 07/25/2024 10:00 AM UPPER CUTTER OUT [facility] [address] [place] [phone] Yosi Bustamante MD [address] [place] [address] 2L [place] [address] 07/26/2024 10:00 AM UPPER CUTTER OUT Appointment [facility] DI[facility] [address] [place] [address] Neri Delgado MD [address] [place] [phone] 07/26/2024 10:00 AM UPPER CUTTER OUT Office Visit [facility] - ENT [address] [place] [phone] Myra Farmer, SUPERINTENDENT MENAGERIE [address] [place] [address] 2L [place] [phone] 07/26/2024 11:15 AM UPPER CUTTER OUT Office Visit [facility] - ENT [address] [place] [phone] Neri Delgado MD [address] [place] [address] [place] [address] 08/02/2024 2:20 PM UPPER CUTTER OUT Appointment [facility] [address] [place] [address] 08/02/2024 3:00 PM UPPER CUTTER OUT Office Visit [facility] Group - Hematology/Oncology [address] [place] [phone] Remi Beckett MD [address] [place] [phone] 08/18/2024 1:45 PM UPPER CUTTER OUT Office Visit [facility] - ENT [address] [place] [phone] Neri Delgado MD [address] [place] [phone] documented as of this encounter Results * (ABNORMAL) RENAL FUNCTION PANEL (12/08/2021 9:12 AM T) BUN 16 7 - 26 mg/dL 12/08/2021 10:17 AM [facility] Creatinine 0.82 0.56 - 0.96 mg/dL 12/08/2021 10:17 AM [facility] Sodium 140 136 - 145 mmol/L 12/08/2021 10:17 AM [facility] Potassium 4.6(H) 3.5 - 4.5 mmol/L 12/08/2021 10:17 AM [facility] Chloride 106 98 - 107 mmol/L 12/08/2021 10:17 AM [facility] CO2 22 22 - 29 mmol/L 12/08/2021 10:17 AM [facility] Glucose 95 70 - 115 mg/dL 12/08/2021 10:17 AM [facility] Albumin 4.0 3.4 - 5.0 g/dL 12/08/2021 10:17 AM [facility] Calcium 8.0(L) 8.4 - 10.2 mg/dL 12/08/2021 10:17 AM CDT [facility] Phosphorus 4.9 2.9 - 5.1 mg/dL 12/08/2021 10:17 AM CDT [facility] Anion Gap 17 8 - 18 12/08/2021 10:17 AM CDT [facility] BUN/Creatinine Ratio 20 7 - 23 12/08/2021 10:17 AM CDT [facility] Osmolality Calculated 291 270 - 300 mOsm/kg 12/08/2021 10:17 AM CDT [facility] eGFR by CKD-EPI 80(L) >=90 mL/min/1.7 3 m2 12/08/2021 10:17 AM CDT [facility] Blood BLOOD SPECIMEN / Unknown Lab Venipuncture / Unknown 12/08/2021 9:12 AM CDT 12/08/2021 9:25 AM CDT Yosi Bustamante MD LAB - CHEMISTRY ORD ERABLES Performing Organization Address City/[facility]/ZIP Co de Phone Number [facility] [address] [place] [address], [facility] [phone] * THYROGLOBULIN REFLEX PROFILE (12/08/2021 9:12 AM CDT) Thyroglobulin Antibody <1.0 0.0 - 0.9 IU/mL 12/10/2021 1:06 AM CDT [facility] ([facility]) Comment:Thyroglobulin Antibo dy measured by Lisbet Marcos Methodology Blood BLOOD SPECIMEN / Unknown Lab Venipuncture / Unknown 12/08/2021 9:12 AM CDT 12/08/2021 9:51 AM CDT Narrative [facility] ([facility]) - 12/10/2021 1:06 AM CDT Performed at: ??01 - [facility] [address] [facility], [place], [place] ??[id number] Kettle Fry Cook Operator: Oral Melendez PhD, Phone: ??[phone] Yosi Bustamante MD LAB - CHEMISTRY ORD ERABLES [facility] ([facility]) [address] [place] [address] documented in this encounter Visit Diagnoses Diagnosis Postoperative hypothyroidism- Primary Postsurgical hypothyroidism Thyroid cancer (HCC) Malignant neoplasm of thyroid gland Hypocalcemia Other hypoparathyroidism (HCC) documented in this encounter Care Teams Fish Farm Manager Relationship Specialty Start Date End Date Taniya Grimes MD [address] 2L DIV OF [facility] [place] [address] PCP - General 07/01/20 05/10/22 Marylu Marie DO [address] 2[address] DIV OF [facility] [place] [address] Resident - PCP Student Resident 06/26/20 01/11/22 documented as of this encounter
--- OUTSIDE RECORDS SUMMARY | 2024-07-23 07:16 | XMS_ITS | Encounter Summary ---
Author Organization [facility] Health Address [address] [place] [address] Care Team Providers Care Insurance Service Representative Name Role Phone Marylu Marie DO Unavailable [phone] Taniya Grimes MD Primary Care Provider Reason for Visit * Reason Onset Date Comments MEDICATION REFILL 10/20/2021 Encounter Details Date Type Department Care Team (Late st Contact Info) Description 10/20/2021 Refill [facility] [address] [place] [address], [place] [address] Taniya Grimes MD [address] [place] [address] [place] [address] MEDICATION REFILL Social History Tobacco [...] Exposure Response Date Recorded In the last month, have you been in contact with someone who was confirmed or suspected to have Coronavirus / COVID-19? No / Unsure 10/08/2021 4:17 PM CDT documented as of this encounter [...] Telephone Encounter - Esther Branch RN - 10/20/2021 3:53 PM CDT MEDICATION FILLED PER PROTOCOL Disposition of prescription: e-prescribed to preferred pharmacy Response to patient: None necessary documented in this encounter Plan of Treatment Upcoming Encounters Date Type Department Care Team (Late st Contact Info) Description 07/25/2024 10:00 AM TALENT SPECIALIST Office Visit [facility] - Endocrinology [address] [place] [phone] Yosi Bustamante MD [address] [place] [address] 2L [place] [address] 07/26/2024 10:00 AM TALENT SPECIALIST Appointment [facility] [address] [place] [address] Neri Delgado MD [address] [place] [phone] 07/26/2024 10:00 AM TALENT SPECIALIST Office Visit [facility] - ENT [address] [place] [phone] Myra Farmer, UNDERWRITER MORTGAGE LOAN [address] [place] [address] 2L [place] [address] 07/26/2024 11:15 AM TALENT SPECIALIST Office Visit [facility] [place] [phone] Neri Delgado MD [facility] [place] [address] 08/02/2024 2:20 PM TALENT SPECIALIST Appointment [facility] [address] [place] [address] 08/02/2024 3:00 PM TALENT SPECIALIST Office Visit [facility] - Hematology/Oncology [address] [place] [phone] Remi Beckett MD [address] [place] [phone] 08/18/2024 1:45 PM TALENT SPECIALIST Office Visit [facility] - ENT [address] [place] [phone] Neri Delgado MD [facility] [place] [address] documented as of this encounter Visit Diagnoses Not on filedocumented in this encounter Care Teams Insurance Service Representative Relationship Specialty Start Date End Date Taniya Grimes MD [address] [place] [address] 2L DIV [place] [address] PCP - General 07/01/20 05/10/22 Marylu Marie DO [address] [place] [address] 2L DIV [place] [address] Resident - PCP Student Resident 06/26/20 01/11/22 documented as of this encounter
--- OUTSIDE RECORDS SUMMARY | 2024-07-23 07:16 | XMS_ITS | Encounter Summary ---
Author Organization [facility] Address [address] [facility] [place] [address] Care Team Providers Care Technical Expert Name Role Phone Marylu Marie DO Unavailable Taniya Grimes MD Primary Care Provider Reason for Visit * Reason Onset Date Comments Urinary frequency 11/17/2021 Encounter Details Date Type Department Care Team (Late st Contact Info) Description 11/17/2021 Telephone [facility] [address] [place] [address], [place] [address] Taniya Grimes MD [address] [place] [address] OF [facility] [place] [address] Urinary frequency Social History Tobacco Use Types Packs/Day Years [...] Telephone Encounter - Lexii Birch RN - 11/20/2021 3:28 PM CDT Per IDX, scheduling detail report, pt cancelled appt today and said she was feeling a little betterand also sited the weather as a reason for cancellation. * Telephone Encounter - Lexii Birch RN - 11/17/2021 11:22 AM CDT Pt calling in and reporting she is getting frequent urge to use bathroom, but when she gets to restroom, she only dribbles. Having frequency of urination, no burning or pain. States the urine does have a strong smell. Recently was dx with UTI (10/29) when she saw Dr Marie and was treated with bactrim. She states now the symptoms are returning, and she wants to know if she should be seen again or if a second course of antibiotics could be ordered. She said she was instructed by Dr Marie to call if she had any further issues. Triage scheduled pt for first available appt with a resident for eval of her dysuria- Th11/[address] Qureshi. In last OV note, Dr Marie mentioned referral to Urogyn if she continues to have issues. There isno referral in system however. Please advise. documented in this encounter Plan of Treatment Upcoming Encounters Date Type Department Care Team (Late st Contact Info) Description 07/25/2024 10:00 AM EXPLOSIVE ORDNANCE DISPOSAL MANAGER Office Visit [facility] - Endocrinology [address] [place] [address], [place] [address] Yosi Bustamante MD [address] [place] [address] [place] [address] 07/26/2024 10:00 AM EXPLOSIVE ORDNANCE DISPOSAL MANAGER Appointment [facility] DIAGNOSTIC RAD [address] [place] [address] Neri Delgado MD [address] [place] [address] 07/26/2024 10:00 AM EXPLOSIVE ORDNANCE DISPOSAL MANAGER Office Visit [facility] - ENT [address] [place] [phone] Myra Farmer, IRRIGATOR [address] [place] [address] [place] [phone] 07/26/2024 11:15 AM EXPLOSIVE ORDNANCE DISPOSAL MANAGER Office Visit [facility] - ENT [address] [place] [phone] Neri Delgado MD [address] [place] [address] 08/02/2024 2:20 PM EXPLOSIVE ORDNANCE DISPOSAL MANAGER Appointment [facility] [address] [place] [address] 08/02/2024 3:00 PM EXPLOSIVE ORDNANCE DISPOSAL MANAGER Office Visit [facility] - Hematology/Oncology [address] [place] [phone] Remi Beckett MD [address] [place] [phone] 08/18/2024 1:45 PM EXPLOSIVE ORDNANCE DISPOSAL MANAGER Office Visit [facility] - ENT [address] [place] [phone] Neri Delgado MD [address] [place] [address] documented as of this encounter Visit Diagnoses Not on filedocumented in this encounter Care Teams Technical Expert Relationship Specialty Start Date End Date Taniya Grimes MD [address] 2L DIV OF [facility] [place] [address] PCP - General 07/01/20 05/10/22 Marylu Marie DO [address] 2L DIV OF [facility] [place] [address] Resident - PCP Student Resident 06/26/20 01/11/22 documented as of this encounter
--- OUTSIDE RECORDS SUMMARY | 2024-07-23 07:16 | XMS_ITS | Encounter Summary ---
Author Organization [facility] Address [address] [facility] [place] [address] Care Team Providers Care Leather Goods I Assembler Name Role Phone Marylu Marie DO Unavailable Taniya Grimes MD Primary Care Provider Reason for Visit * Reason Onset Date Comments MEDICATION REFILL 11/11/2021 Encounter Details Date Type Department Care Team (Late st Contact Info) Description 11/11/2021 Refill [facility] [address] [place] [address], [place] [address] Marylu Marie DO [address] [place] [address] [place] [address] MEDICATION REFILL Social History Tobacco Use Types [...] encounter Miscellaneous Notes * Telephone Encounter - Alex Smith MD - 11/11/2021 5:04 PM CDT Reviewed patient's History. Had previously been on Zyrtec for multiple Rx. Will refill at this timeas covering Provider for Dr. Marie. Alex Smith MD * Telephone Encounter - Sita Cotter RN - 11/11/2021 11:05 AM CDT Refill Request Brisa Hogan ELE: 10/29/20 NOV scheduled: 01/28/22 LRF: 09/05/20 Qty Disp: 30 # of refills: 5 Allergies: Allergies Allergen Reactions ??? Kiwi Extract Anaphylaxis Pended Medication Order: Requested Prescriptions Pending Prescriptions Disp Refills ??? cetirizine (ZYRTEC) 10 MG tablet 30 tablet 5 Sig: Take 1 (one) tablet by mouth once daily documented in this encounter Plan of Treatment Upcoming Encounters Date Type Department Care Team (Late st Contact Info) Description 07/25/2024 10:00 AM DYNAMOMETER TUNER Office Visit [facility] - Endocrinology [address] [place] [phone] Yosi Bustamante MD [address] [place] [address] [place] [address] 07/26/2024 10:00 AM DYNAMOMETER TUNER Appointment [facility] DIAGNOSTIC RAD [address] [place] [address] Neri Delgado MD [address] [place] [address] 07/26/2024 10:00 AM DYNAMOMETER TUNER Office Visit [facility] - ENT [address] [place] [phone] Myra Farmer, JUNIOR PROGRAMMER ANALYST [address] [place] [address] 2L [place] [address] 07/26/2024 11:15 AM DYNAMOMETER TUNER Office Visit [facility] - ENT [address] [place] [phone] Neri Delgado MD [address] [place] [address] 08/02/2024 2:20 PM DYNAMOMETER TUNER Appointment [facility] CENTER [address] [place] [address] 08/02/2024 3:00 PM DYNAMOMETER TUNER Office Visit [facility] - Hematology/Oncology [address] [place] [phone] Remi Beckett MD [address] [place] [phone] 08/18/2024 1:45 PM DYNAMOMETER TUNER Office Visit [facility] - ENT [address] [place] [phone] Neri Delgado MD [address] [place] [address] documented as of this encounter Visit Diagnoses Diagnosis Allergic rhinitis, unspecified seasonality, unspecified trigger documented in this encounter Care Teams Leather Goods I Assembler Relationship Specialty Start Date End Date Taniya Grimes MD [address] [place] [address] 2L DIV OF [place] [phone] PCP - General 07/01/20 05/10/22 Marylu Marie DO [address] [place] [address] Resident - PCP Student Resident 06/26/20 01/11/22 documented as of this encounter
--- OUTSIDE RECORDS SUMMARY | 2024-07-23 07:16 | XMS_ITS | Encounter Summary ---
Author Organization [facility] Address [address] [facility] [place] [address] Care Team Providers Care Trauma Doctor Name Role Phone Marylu Marie DO Unavailable [phone] Taniya Grimes MD Primary Care Provider Reason for Visit * Reason Comments Follow-up Encounter Details Date Type Department Care Team (Late st Contact Info) Description 10/24/2021 1:45 PM CDT Office Visit [facility] Otol[facility] [address] [place] [phone] Neri Delgado MD [address] [place] [phone] Thyroid cancer (HCC) (Primary Dx) Social History [...] Sign Reading Time Taken Comments Blood Pressure 127/80 10/24/2021 2:02 PM CDT Pulse 77 10/24/2021 2:02 PM CDT Temperature - - Respiratory Rate - - Oxygen Saturation - - Inhaled Oxygen Concentration - - Weight 67.6 kg (149 lb) 10/24/2021 2:02 PM CDT Height 157.5 cm (5' 2) 10/24/2021 2:02 PM CDT Body Mass Index 27.25 10/24/2021 2:02 PM CDT documented in this encounter Functional [...] Patient Instructions * Patient Instructions* Yisel Crump - 10/24/2021 2:03 PM CDT Thank you for visiting [facility] Otolaryngology - Head & Neck Surgery. We [...] an appointment, please call our office at [phone] Wednesday through Wednesday from 8:30 am to4:30 pm. You can also request a routine appointment through your [employer] account. Prescription Refills Contact your pharmacy to [...] call the medical exchangeat and ask the stitching machine operator to page the ENT physician prescriptionist. *Caller ID blocking service will need to be turned off for your call to be returned. We also specialize in Hearing Aids, Allergy testing, swallowing disorders, voice problems, cancer diagnosis, and so much more. Visit our website at [email or web address] for information about our practice and an interactive health encyclopedia. documented in this encounter Progress Notes * Marbin Zaldivar MD - 10/24/2021 2:22 PM CDT CC: Chief Complaint Patient presents with ??? Follow-up Diagnosis: Site: Thyroid Histology: PTC Stage: [id number] AJCC IVb Details: Positive margins, LVI +, PNI + (including Right RLN), nodes, JADON + Treatment History: 08/19/20: total thyroidectomy requiring sacrifice of Right RLN/tracheal resection/reanastamosis, bilateral lateral and central neck dissection. HPI: Brisa Hogan is a 61 year old female presenting for follow up of her complex thyroid cancer andassociated dysphonia/dysphagia. After surgery pt worked closely with SENIOR MARKETING ENGINEER on her voice and swallow and over has been doing well. She reports when she uses good breath support her voice isn't squeaky or weak and functional. She reports since working with [facility] after her procedure on swallow does well when she drinks slowly.Over the past few months pt had had a slight increase in the frequency of coughing/sputtering episodes with liquids. She denies any episodes of PNA, unintentional weight loss or dysphagia to solids. She denies any shortness of breath. Only slight wheezing noise when deep breathing but pt feels sheis more limited by her hip. She is down to smoking 6- 10 cigarettes per day. Medical History: Past Medical History: Past Medical [...] ??? Snoring ??? SOB (shortness of breath) 22 thyroid mass ??? Thyroid cancer 10/14/2020 ??? [...] TABLET BY MOUTH EVERYDAY AT BEDTIME ??? clonazePAM (KLONOPIN) 0.5 MG tablet Take 3 (three) tablets by mouth once daily ??? famotidine (PEPCID) 20 MG tablet Take 20 mg by mouth 2 times daily as needed ??? fluticasone propionate (FLONASE) 50 MCG/ACT nasal spray [place] 2 (two) sprays into each nostril once daily ??? gabapentin (NEURONTIN) 300 MG capsule TAKE 1 CAPSULE BY MOUTH THREE TIMES A DAY ??? ZBHBLL-WKSMJMDUK-TGQ-C-HYAL PO Take 1 tablet by mouth 3 times daily ??? levothyroxine (SYNTHROID) 112 MCG tablet Take 1 (one) tablet by mouth once daily ??? Misc Natural Products (NEURIVA PO) Take 2 capsules by mouth every morning ??? pantoprazole EC (PROTONIX) 40 MG tablet TAKE 1 TABLET BY MOUTH DAILY FOR STOMACH ??? PARoxetine (PAXIL) 40 [...] Extract Anaphylaxis Social History: Smokin+ pack-years, currently ~1/2 PPD Exam: Vitals: 10/24/21 1402 BP: 127/80 Pulse: 77 Weight: 149 lb (67.6 kg) Height: 5' 2 (1.575 m) General: [...] no lesions seen and no masses palpable Larynx by mirror: unable to visualize due to gag reflex Neck: No palpable lymphadenopathy bilaterally. Well healed anterior and lateral neck scars. The salivary glands are without palpable masses. Voice: Strong, no stridor present Neurologic: Cranial nerves III-XII grossly intact Imaging: US report (10/24 [facility] office): non-enlarged nodes bilaterally, no structural disease obvious. Outside Records Reviewed: Yes, Endocrine, labs, imaging Assessment/Plan: 1 PTC with tracheal invasion Disease status: s/p resection (thyroidectomy/ND, tracheal resection/reanastamosis and sacrifice of R RLN) - She has paramedian positioning of her R TVF and excellent compensation with effort by her left cord. She was reassured there were no structural defects. Diet: as tolerated 2. Survivorship - Smoking cessation counseling: discussed today for at least 5 minutes - Annual TSH: followed by Endocrine - Annual lung cancer screening: indicated. If not done by PCP would order in follow up. Follow up: 6 months Marbin Zaldivar MD 10/24/21 2:22 PM Associated attestation - Neri Delgado MD - 10/25/2021 2:36 PM CDT Attending Physician Supervisory Note I personally interviewed and examined the patient and agree with the Resident above. In addition I note: Locally advanced PTC T4N1b s/p resection and WARD including right RLN sacrifice. She is compensatingwell with her left vocal fold. No clinical evidence of recurrence. Continue following with endocrine. Again encouraged smoking cessation. I was present for all procedures during this visit. Neri Delgado MD documented in this encounter Plan of Treatment Upcoming Encounters Date Type Department Care Team (Late st Contact Info) Description 07/25/2024 10:00 AM LUBRICATING SPECIALIST [facility] [address] [place] [phone] Yosi Bustamante MD [address] [place] [address] 2L Div [place] [address] 07/26/2024 10:00 AM LUBRICATING SPECIALIST Appointment [facility] DIAGNOSTIC RAD [address] [place] [address] Neri Delgado MD [address] [place] [address] 07/26/2024 10:00 AM LUBRICATING SPECIALIST Office Visit [facility] - ENT [address] [place] [phone] Myra Farmer, SENIOR MARKETING ENGINEER [address] [place] [address] 2L [place] [address] 07/26/2024 11:15 AM LUBRICATING SPECIALIST Office Visit [facility] - ENT [address] [place] [phone] Neri Delgado MD [address] [place] [address] 08/02/2024 2:20 PM LUBRICATING SPECIALIST Appointment [facility] [address] [place] [address] 08/02/2024 3:00 PM LUBRICATING SPECIALIST Office Visit [facility] - Hematology/Oncology [address] [place] [phone] Remi Beckett MD [address] [place] [phone] 08/18/2024 1:45 PM LUBRICATING SPECIALIST Office Visit [facility] - ENT [address] [place] [address] Neri Delgado MD [address] [place] [address] documented as of this encounter Visit Diagnoses Diagnosis Thyroid cancer (HCC)- Primary Malignant neoplasm of thyroid gland documented in this encounter Care Teams Trauma Doctor Relationship Specialty Start Date End Date Taniya Grimes MD [address] [facility] 2L DIV OF [facility] [place] [address] PCP - General 07/01/20 05/10/22 Marylu Marie DO [address] [facility] 2L DIV OF [facility] [place] [address] Resident - PCP Student Resident 06/26/20 01/11/22 documented as of this encounter
--- OUTSIDE RECORDS SUMMARY | 2024-07-23 07:16 | XMS_ITS | Encounter Summary ---
Author Organization [facility] Health Address [address] [facility] [place] [address] Care Team Providers Care Child Psychiatrist Name Role Phone Marylu Marie DO Unavailable Taniya Grimes MD Primary Care Provider Reason for Visit * Reason Onset Date Comments Medication Issue 11/14/2021 Encounter Details Date Type Department Care Team (Late st Contact Info) Description 11/14/2021 Telephone [facility] General Internal Medicine [address] [place] [address], [place] [address] Taniya Grimes MD [address] [place] [address] [place] [address] Medication Issue Social History Tobacco Use Types [...] encounter Miscellaneous Notes * Telephone Encounter - Jessica Kenyon RN - 11/14/2021 11:19 AM CDT Insurance requires prior auth for pantoprazole EC (PROTONIX) 40 MG tablet . Prior auth request submitted on line at [employer]. Office notes submitted with request . Waiting for insurance response. Cover My Meds perez:[id number] documented in this encounter Plan of Treatment Upcoming Encounters Date Type Department Care Team (Late st Contact Info) Description 07/25/2024 10:00 AM TEST DESK TROUBLE LOCATOR Office Visit [facility] - Endocrinology [address] [place] [phone] Yosi Bustamante MD [address] [place] [address] 2L Div [place] [address] 07/26/2024 10:00 AM TEST DESK TROUBLE LOCATOR Appointment [facility] DIAGNOSTIC RAD [address] [place] [address] Neri Delgado MD [address] [place] [address] 07/26/2024 10:00 AM TEST DESK TROUBLE LOCATOR Office Visit [facility] - ENT [address] [place] [phone] Myra Farmer, ZAIN [address] [place] [address] 2L [place] [phone] 07/26/2024 11:15 AM TEST DESK TROUBLE LOCATOR Office Visit [facility] - ENT [address] [place] [phone] Neri Delgado MD [address] [place] [address] 08/02/2024 2:20 PM TEST DESK TROUBLE LOCATOR Appointment [facility] [address] [place] [address] 08/02/2024 3:00 PM TEST DESK TROUBLE LOCATOR Office Visit [facility] - Hematology/Oncology [address] [place] [phone] Remi Beckett MD [address] [place] [phone] 08/18/2024 1:45 PM TEST DESK TROUBLE LOCATOR Office Visit [facility] - ENT [address] [place] [phone] Neri Delgado MD [address] [place] [address] documented as of this encounter Visit Diagnoses Not on filedocumented in this encounter Care Teams Child Psychiatrist Relationship Specialty Start Date End Date Taniya Grimes MD [address] [place] [address] 2L DIV OF [facility] [place] [phone] PCP - General 07/01/20 05/10/22 Marylu Marie DO [address] [place] [address] 2L DIV OF [facility] [place] [address] Resident - PCP Student Resident 06/26/20 01/11/22 documented as of this encounter
--- OUTSIDE RECORDS SUMMARY | 2024-07-23 07:16 | XMS_ITS | Encounter Summary ---
Author Organization [facility] Health Address [address] [place] [address] Care Team Providers Care Mechanical Engineering Technologist Name Role Phone Marylu Marie DO Unavailable [phone] Taniya Grimes MD Primary Care Provider Reason for Visit * Reason Onset Date Comments Imaging 10/31/2021 Encounter Details Date Type Department Care Team (Late st Contact Info) Description 10/31/2021 Telephone [facility] Medicine [address] [place] [address], [place] [address] Taniya Grimes MD [address] [place] [address] OF [facility] [place] [address] Imaging Social History Tobacco Use [...] Miscellaneous Notes * Telephone Encounter - Lexii Brown, RN - 10/31/2021 10:25 AM CDT Pt states was given order for mammogram 10/29 during appt and asked if could have done at [facility] in [place], [place] since has had all other mammograms done there and insurance covers there. Instructed to call hospital before having done to verify if needs any other information and bring order with her. States taking antibiotics for UTI and will call triage next week to update on her condition per provider request. States no urgency or incontinence since started antibiotic 10/29. Sending to provider as fyi. documented in this encounter Plan of Treatment Upcoming Encounters Date Type Department Care Team (Late st Contact Info) Description 07/25/2024 10:00 AM RECORDS COORDINATOR Office Visit [facility] - Endocrinology [address] [place] [phone] Yosi Bustamante MD [address] [place] [address] [place] [address] 07/26/2024 10:00 AM RECORDS COORDINATOR Appointment [facility] DIAGNOSTIC RAD [address] [place] [phone] Neri Delgado MD [address] [place] [address] 07/26/2024 10:00 AM RECORDS COORDINATOR Office Visit [facility] - ENT [address] [place] [phone] Myra Farmer, TECHNICAL SALES ENGINEER [address] [place] [address] 2L [place] [phone] 07/26/2024 11:15 AM RECORDS COORDINATOR Office Visit [facility] - ENT [address] [place] [phone] Neri Delgado MD [address] [place] [address] 08/02/2024 2:20 PM RECORDS COORDINATOR Appointment [facility] CENTER [address] [place] [address] 08/02/2024 3:00 PM RECORDS COORDINATOR Office Visit [facility] Group - Hematology/Oncology [address] [place] [phone] Remi Beckett MD [address] [place] [phone] 08/18/2024 1:45 PM RECORDS COORDINATOR Office Visit [facility] - ENT [address] [place] [phone] Neri Delgado MD [address] [place] [address] documented as of this encounter Visit Diagnoses Not on filedocumented in this encounter Care Teams Mechanical Engineering Technologist Relationship Specialty Start Date End Date Taniya Grimes MD [address] [place] [address] 2L [place] [phone] PCP - General 07/01/20 05/10/22 Marylu Marie DO [address] [place] [address] 2L [place] [address] Resident - PCP Student Resident 06/26/20 01/11/22 documented as of this encounter
--- OUTSIDE RECORDS SUMMARY | 2024-07-23 07:16 | XMS_ITS | Encounter Summary ---
Author Organization [facility] Health Address [address] [place] [address] Care Team Providers Care Sonography Technologist Name Role Phone Marylu Marie DO Unavailable Taniya Grimes MD Primary Care Provider Reason for Visit * Reason Comments MEDICATION REFILL Medication Issue Encounter Details Date Type Department Care Team (Late st Contact Info) Description 10/29/2021 1:30 PM CDT Office Visit [facility] [address] [place] [address], [place] [address] Marylu Marie DO [address] [place] [address] [place] [address] Dysuria (Primary Dx); Acute cystitis without hematuria; Tobacco use disorder; Encounter for screening mammogram for breast cancer; Depression, unspecified depression type Social History Tobacco [...] Sign Reading Time Taken Comments Blood Pressure 130/74 10/29/2021 1:21 PM CDT Pulse 78 10/29/2021 1:21 PM CDT Temperature 36.5 ??C (97.7 ??F) 10/29/2021 1:21 PM CD T Respiratory Rate - - Oxygen Saturation 93% 10/29/2021 1:21 PM CDT Inhaled Oxygen Concentration - - Weight 69.5 kg (153 lb 3.2 oz) 10/29/2021 1:21 P M CDT Height 157.5 cm (5' 2) 10/29/2021 1:21 PM CDT Body Mass Index 28.02 10/29/2021 1:21 PM CDT documented in this encounter Functional [...] Instructions * Patient Instructions* Jessica Shukla - 10/29/2021 1:18 PM CDT [facility] is a Patient Centered Medical Home (PCMH) recognized practice. PCMH is a model of care that puts patients at the forefront of care. PCMH centers build better relationships between patients and their clinical care teams. Practices that earn this recognition have made a commitment to continuous quality improvement and a patient-centered approach to care. [facility] is committed to providing you [...] for your doctor, the office phone is [phone]. You will be given options to get [...] primary care provider. Please call us at [phone], option 1, then option 1 in the morning you would like to be seen. Our fax number is [phone]. Instructions for reaching the practice after office hours For urgent concerns that cannot wait until phone lines are open on the next day, please call [phone] to speak to the covering General Internal Medicine provider. Identify yourself as a patient in our practice and give the breaking machine operator your doctor's name. The breaking machine operator will contact the physician online content developer. You can generally expect a return call within 30 minutes. Prescription Refills Contact your pharmacy to request all refills. You may also send a Kiosked message for refills. Please allow a minimum of 48-72 hours for your prescription to be completed. Your pharmacy will notify you when your prescription is ready to be picked up. SCHEDULE YOUR OWN APPOINTMENT AT [facility] We are excited to announce that some [facility] appointments can now be scheduled online. If you are not able to access the type of appointment that you need using this service, our [facility] Scheduling department will be happy to continue to serve you. Use one of these options to schedule your next appointment today: Access self-scheduling options by visiting the [facility] Online Scheduling Webpage. Make an appointment by calling [facility] Central [phone] Visit our website at [email or web address] for information about our practice and an interactive health encyclopedia. documented in this encounter Progress Notes * Marylu Marie DO - 10/29/2021 1:34 PM CDT [facility] General Internal Medicine Established Patient Note CC: Chief Complaint Patient presents with ??? MEDICATION REFILL ??? Medication Issue Assessment & Plan: 1. Dysuria 2. Acute cystitis without hematuria Evidence of pyuria on UA. Infrequent history of UTI but associated with confusion and mood changes in the past. May be contributing to overall ill feelings today. Urinary frequency and feelings of pressure/heaviness may be 2/2 to UTI. Will treat and monitor for response. If no improvement in heaviness, will refer to urogyn for further evaluation. - URINALYSIS - POINT OF CARE (AMB) [facility] - sulfamethoxazole-trimethoprim (BACTRIM DS; SEPTRA DS) 800-160 MG tablet; Take 1 (one) tablet by mouth 2 times daily for 3 days Dispense: 6 tablet; Refill: 0 3. Tobacco use disorder Expressed motivation to quit. Shows insight into importance of cessation. Notes barriers of increased stress as well as decreased mobility and pain. Did not respond well chantix in the past and will avoid bupropion due to additional psychotropic medications. Start with nicotine replacement. - nicotine (NICODERM CQ) 14 MG/24HR patch; Apply 1 (one) patch to skin once daily Dispense: 30 patch; Refill: 6 4. Encounter for screening mammogram for breast cancer - Screening Mammogram w/ Tomosynthesis; Future 5. Depression, unspecified depression type Encouraged to reach out to psychiatrist regarding exacerbation of symptoms. May be 2/2 to acute illness. Denies SI and notes family as protective factors. Preventative Care/Health Maintenance: Immunizations - COVID19: 09/2020, 10/2020, 06/2021 - Influenza: 05/2021 - Tdap: 02/2016 - Pneumococcal: 06/2018 Colorectal cancer screening: Screening colonoscopy ordered 05/2021 HIV, Hep C: nonreactive 03/2020 Cardiovascular prevention: lipids WNL 03/2020, diabetes screening 5.5 03/2020, tobacco use advised cessation Female specific preventative care: Cervical cancer screenin11/2019, negative Breast ca screening: mammogram ordered Patient discussed with attending physician, Dr. Anaya, who agrees with my assessment and plan. Return in about 3 months (around 01/28/2022). History of Present Illness: Brisa Hogan is a 61 year old female with PMH of severe osteoarthritis, depression, tobacco usedisorder, and metastatic papillary thyroid cancer s/p resection and radioactive ablation [facility] up. No recent hospitalizations or illnesses. Increased periods of sadness and tearfulness. Son just out of nursing home. was in the hospital now s/p cardiac stenting. Also trying to quit smoking. Last appointment with psychiatrist via telephone recent, unknown exact time. Usually talks to her every three weeks. Meets with counselor as well.Also having hot flashes for approximately two months. Not able to reach the restroom quickly enough. No pain with urination, but reports tingling afterwards along with heaviness. Only occurring when seated. Feeling pressure like organs falling out. Noprolapse occurring. Two living children. One vaginal and one . Very interested in smoking cessation. Feels that hip pain and decreased mobility are contributing to mood and depressive symptoms. Describes herself as someone who likes to be outside of the house and active. Can no longer participate in activities due to hip instability and pain. Past Medical/Surgical/Family/Social History: Reviewed and updated in [facility] History tab Medications: Reviewed and updated in [facility] Medications tab Current Outpatient Medications Medication Sig Dispense Refill ??? acetaminophen (TYLENOL) 500 MG tablet Take 1,000 mg by mouth every 8 hours as needed ??? atorvastatin (LIPITOR) 40 MG tablet TAKE 1 TABLET BY MOUTH EVERYDAY AT BEDTIME 30 tablet 3 ??? clonazePAM (KLONOPIN) 0.5 MG tablet Take 1.5 (one and one-half) tablets by mouth once daily ??? famotidine (PEPCID) 20 MG tablet Take 20 mg by mouth 2 times daily as needed ??? fluticasone propionate (FLONASE) 50 MCG/ACT nasal spray [place] 2 (two) sprays into each nostril once daily 48 g 0 ??? gabapentin (NEURONTIN) 300 MG capsule TAKE 1 CAPSULE BY MOUTH THREE TIMES A DAY 90 capsule 5 ??? OUGWTT-[id number]-[id number]-C-HYAL PO Take 1 tablet by mouth 3 [...] PARoxetine (PAXIL) 40 MG tablet 2 ??? sulfamethoxazole-trimethoprim (BACTRIM DS; SEPTRA DS) 800-160 MG tablet Take 1 (one) tablet by mouth 2 times daily for 3 days 6 tablet 0 ??? thyrotropin tayo (THYROGEN) injection Inject 0.9 mg into muscle every 24 hours for 2 doses Reasons: Cancer of Thyroid 2 mL 0 ??? traZODone (DESYREL) 50 MG tablet Take 50 mg by mouth at bedtime ??? vitamin E (TOCOPHERYL) 200 UNIT capsule Take 200 Units by mouth 3 times daily No current facility-administered medications for this visit. Allergies: Reviewed and updated in Epic Allergies tab Review of Systems: Review of Systems Constitutional: Negative for chills and fever. Respiratory: Positive for shortness of breath. Cardiovascular: Negative for chest pain. Gastrointestinal: Negative for abdominal pain, blood in stool, nausea and vomiting. Genitourinary: Positive for frequency. Negative for dysuria, hematuria and urgency. Psychiatric/Behavioral: Positive for depression. Negative for suicidal ideas. The patient has insomnia. Physical Exam: BP 130/74 Pulse 78 Temp 97.7 ??F (36.5 ??C) (Temporal) Ht 5' 2 (1.575 m) Wt 153 lb 3.2 oz (69.5 kg) SpO2 93% BMI 28.02 kg/m2 Physical Exam Vitals reviewed. Constitutional: General: She is not in acute distress. Comments: Tearful throughout visit. HENT: Head: Normocephalic and atraumatic. Mouth/Throat: Comments: S/p thyroidectomy, well healed surgical scar present Cardiovascular: Rate and Rhythm: Normal rate and regular rhythm. Heart sounds: No murmur heard. Pulmonary: Effort: Pulmonary effort is normal. No respiratory distress. Breath sounds: Normal breath sounds. Abdominal: General: Bowel sounds are normal. Palpations: Abdomen is soft. Neurological: Mental Status: She is alert. Gait: Gait abnormal. Comments: Ambulatory with assistance of walker and cane. Unable to step up to exam table. Labs: Personally reviewed. Pertinent for: UA with 500 WBC, 10 RBC No nitrites Lab Preference: [address] [phone] Maryluher Frank DO 10/29/2021 Coding Rationale New or est? Established Patient Highest problem complexity: 1 acute, uncomplicated illness or injury and 2 or more stable chronic illnesses Data review: Review of result(s): Ordering of test(s): 1 unique test(s) ordered Highest level of risk: Moderate Suggested code: 27231 Associated attestation - Andria Anaya DO - 11/09/2021 9:42 PM CDT Brisa Hogan is a 61 year old female I reviewed the history and physical exam with Dr. Marie at the time of the visit. Patient presents with: Here for routine follow up. Diagnosed with thyroid cancer, now s/p resection and radiation. Awaiting hip replacement--following with Dr. Brooks. Needs to quit smoking in order to have replacement (~1/2 ppd). Struggling with depression and decreased activity--follows with psych. History and examination as documented by resident: BP 130/74 Pulse 78 Temp 97.7 ??F (36.5 ??C) (Temporal) Ht 5' 2 (1.575 m) Wt 153 lb 3.2 oz (69.5 kg) SpO2 93% BMI 28.02 kg/m2 I confirm assessment and plan as follows: Tobacco use disorder: nicotine patches Urinary symptoms: UA+, treat with bactrim, if symptoms persist refer to urogyn Follow up psych Andria Anaya DO 10/29/2021 documented in this encounter Plan of Treatment Upcoming Encounters Date Type Department Care Team (Late st Contact Info) Description 07/25/2024 10:00 AM CARDIOLOGY TEACHER Office Visit [facility] - Endocrinology [address] [place] [address], [place] [phone] Yosi Bustamante MD [address] [place] [address] [place] [address] 07/26/2024 10:00 AM CARDIOLOGY TEACHER Appointment [facility] [address] [place] [phone] Neri Delgado MD [address] [place] [phone] 07/26/2024 10:00 AM CARDIOLOGY TEACHER Office Visit [facility] - ENT [address] [place] [phone] Myra Farmer, BURNING SUPERVISOR [address] [place] [address] [place] [phone] 07/26/2024 11:15 AM CARDIOLOGY TEACHER Office Visit [facility] - ENT [address] [place] [phone] Neri Delgado MD [address] [place] [phone] 08/02/2024 2:20 PM CARDIOLOGY TEACHER Appointment [facility] [address] [place] [phone] 08/02/2024 3:00 PM CARDIOLOGY TEACHER Office Visit [facility] - Hematology/Oncology [address] [place] [phone] Remi Beckett MD [address] [place] [phone] 08/18/2024 1:45 PM CARDIOLOGY TEACHER Office Visit [facility] - ENT [address] [place] [phone] Neri Delgado MD [address] [place] [phone] documented as of this encounter Procedures Procedure Name Priority Date/Time Associated Diagnosis Comments URINALYSIS - POINT OF CARE (AMB) [facility] Routine 10/29/2021 Dysuria documented in this encounter Results * URINALYSIS - POINT OF CARE (AMB) [facility] (10/29/2021) Specific [place] UA 1.015 [facility] pH UA 6.0 [...] DO LAB - POINT OF CARE ORDERABLES [facility] [address] [place] [address] documented in this encounter Visit Diagnoses Diagnosis Dysuria- Primary Acute cystitis without hematuria Acute cystitis Tobacco use disorder Encounter for screening mammogram for breast cancer Depression, unspecified depression type documented in this encounter Care Teams Sonography Technologist Relationship Specialty Start Date End Date Taniya Grimes MD [address] 2L DIV [place] [address] PCP - General 07/01/20 05/10/22 Marylu Marie DO [address] [place] [address] Resident - PCP Student Resident 06/26/20 01/11/22 documented as of this encounter
--- OUTSIDE RECORDS SUMMARY | 2024-07-23 07:16 | XMS_ITS | Encounter Summary ---
Author Organization [facility] Health Address [address] [address] Care Team Providers Care Video Effects Editor Name Role Phone Marylu Marie DO Unavailable [phone] Taniya Grimes MD Primary Care Provider Encounter Details Date Type Department Care Team (Latest Contact Info) Description 10/24/2021 Travel Social History Tobacco Use Types Packs/Day [...] Contact Info) Description 07/25/2024 10:00 AM ELECTRIC REFRIGERATOR SERVICER [facility] End[facility] [address] [place] [phone] Yosi Bustamante MD [address] [place] [address] 2L [place] [address] 07/26/2024 10:00 AM ELECTRIC REFRIGERATOR SERVICER Appointment [facility] [address] [place] [phone] Neri Delgado MD [address] [place] [phone] 07/26/2024 10:00 AM ELECTRIC REFRIGERATOR SERVICER Office Visit [facility] - ENT [address] [place] [phone] Myra Farmer, FEEDER OPERATOR AUTOMATIC [address] [place] [address] 2L [place] [phone] 07/26/2024 11:15 AM ELECTRIC REFRIGERATOR SERVICER Office Visit [facility] - ENT [address] [place] [phone] Neri Delgado MD [address] [place] [phone] 08/02/2024 2:20 PM ELECTRIC REFRIGERATOR SERVICER Appointment [facility] [address] [place] [phone] 08/02/2024 3:00 PM ELECTRIC REFRIGERATOR SERVICER Office Visit [facility] - Hematology/Oncology [address] [place] [phone] Remi Beckett MD [address] [place] [phone] 08/18/2024 1:45 PM ELECTRIC REFRIGERATOR SERVICER Office Visit [facility] - ENT [address] [place] [phone] Neri Delgado MD [address] [place] [phone] documented as of this encounter Visit Diagnoses Not on filedocumented in this encounter Care Teams Video Effects Editor Relationship Specialty Start Date End Date Taniya Grimes MD [address] [place] [address] 2L DIV OF [facility] [place] [phone] PCP - General 07/01/20 05/10/22 Marylu Marie DO [address] [place] [address] 2L DIV [place] [place] [address] Resident - PCP Student Resident 06/26/20 01/11/22 documented as of this encounter
--- OUTSIDE RECORDS SUMMARY | 2024-07-23 07:16 | XMS_ITS | Encounter Summary ---
Author Organization [facility] Health Address [address] [facility] [place] [address] Care Team Providers Care Radioactive Waste Disposal Dispatcher Name Role Phone Marylu Marie DO Unavailable [phone] Taniya Grimes MD Primary Care Provider Encounter Details Date Type Department Care Team (Latest Contact Info) Description 10/24/2021 2:35 PM CDT - 10/24/2021 11:59 PM CDT Hospital Encounter [facility] OP DRAW STATION [address] [place] [phone] Discharge Disposition: Home or Self Care Social [...] AT BEDTIME 30 tablet 3 07/23/2021 05/13/2022 clonazePAM (KLONOPIN) 0.5 MG tablet Take 3 (three) tablets by mouth once daily 05/22/2021 10/29/2021 fluticasone propionate (FLONASE) 50 MCG/ACT nasal spray Seminary 2 (two) sprays into each nostril once daily 48 g 10/20/2021 11/25/2022 gabapentin (NEURONTIN) 300 MG capsuleIndications:Prima ry osteoarthritis of left hip TAKE 1 CAPSULE BY MOUTH THREE TIMES A DAY 90 capsule 5 10/08/2021 04/06/2022 IGGFZT-[id number]-KGW-C-H YAL PO Take 1 tablet by mouth 3 times daily 06/13/2023 levothyroxine (SYNTHROID) 112 MCG tabletIndications:Postop erative hypothyroidism Take 1 (one) tablet by mouth once daily 90 tablet 4 10/08/2021 07/06/2022 Misc Natural Products (NEURIVA PO) Take 2 capsules by mouth every morning 09/14/2022 pantoprazole EC (PROTONIX) 40 MG tabletIndications:Gastro esophageal [...] st Contact Info) Description 07/25/2024 10:00 AM FABRICATION INSPECTOR Office Visit [facility] - Endocrinology [address] [place] [phone] Yosi Bustamante MD [address] [place] [address] 2L [place] [address] 07/26/2024 10:00 AM FABRICATION INSPECTOR Appointment [facility] DIAGNOSTIC RAD [address] [place] [address] Neri Delgado MD [address] [place] [address] 07/26/2024 10:00 AM FABRICATION INSPECTOR [facility] [address] [place] [phone] Myra Farmer, PACKAGE LIFT OPERATOR [address] [place] [address] 2L [place] [phone] 07/26/2024 11:15 AM FABRICATION INSPECTOR [facility] [address] [place] [phone] Neri Delgado MD [address] [place] [address] 08/02/2024 2:20 PM FABRICATION INSPECTOR Appointment [facility] [address] [place] [address] 08/02/2024 3:00 PM FABRICATION INSPECTOR Office Visit [facility] - Hematology/Oncology [address] [place] [address], [place] [address] Remi Beckett MD [address] [place] [address] 08/18/2024 1:45 PM FABRICATION INSPECTOR Office Visit [facility] - ENT [address] [place] [phone] Neri Delgado MD [address] [place] [address] documented as of this encounter Procedures Procedure Name Priority Date/Time Associated Diagnosis Comments THYROGLOBULIN REFLEX PROFILE Routine 10/24/2021 3:04 PM CDT Postoperative hypothyroidism Thyroid cancer (HCC) Hypocalcemia Other hypoparathyroidism THYROGLOBULIN BY ANTONIETA RFLXED Routine 10/24/2021 3:04 PM CDT Postoperative hypothyroidism Thyroid cancer (HCC) Hypocalcemia Other hypoparathyroidism TSH REFLEX FREE T4 Routine 10/24/2021 3: 04 PM CDT Postoperative hypothyroidism Thyroid cancer (HCC) Hypocalcemia Other hypoparathyroidism VITAMIN D 25-HYDROXY Routine 10/24/2021 3:04 PM CDT Postoperative hypothyroidism Thyroid cancer (HCC) Hypocalcemia Other hypoparathyroidism RENAL FUNCTION PANEL Routine 10/24/2021 3:04 PM CDT Postoperative hypothyroidism Thyroid cancer (HCC) Hypocalcemia Other hypoparathyroidism T4 FREE Routine 10/24/2021 3:04 PM CDT Postoperative hypothyroidism Thyroid cancer (HCC) Hypocalcemia Other hypoparathyroidism documented in this encounter Results * THYROGLOBULIN BY ANTONIETA RFLXED (10/24/2021 3:04 PM CDT) Thyroglobulin by ANTONIETA 17.9 1.5 - 38.5 ng/mL 10/28/2021 1:06 AM CDT [facility] ([facility]) Comment: According to the National Academy of [...] is 0.1 ng/mL Thyroglobulin measured by [facility] Immunometric Assay Blood BLOOD SPECIMEN / Unknown Lab Venipuncture / Unknown 10/24/2021 3:04 PM CDT 10/24/2021 3:31 PM CDT Narrative [facility] ([facility]) - 10/28/2021 1:06 AM CDT Performed at: ??01 - [facility] [address] [place], [place] ??[id number] Manufacturing Engineering Intern: Oral Melendez PhD, Phone: ??[phone] Yosi Bustamante MD LAB - CHEMISTRY ORD ERABLES Performing Organization Address City/[facility]/ZIP Co de Phone Number [facility] ([facility]) [address] [place] [address] * T4 FREE (10/24/2021 3:04 PM CDT) Pathologist [facility] T4 Free 1.4 0.7 - 1.5 ng/dL 10/24/2021 6:02 PM CDT [facility] Blood BLOOD SPECIMEN / Unknown Lab Venipuncture / Unknown 10/24/2021 3:04 PM CDT 10/24/2021 4:55 PM CDT Yosi Bustamante MD LAB - CHEMISTRY ORD ERABLES [facility] [address] [place] [address], [facility] [phone] * VITAMIN D 25-HYDROXY (10/24/2021 3:04 PM CDT) Vitamin D, 25 Hydroxy 36.0 30.0 - 80.0 ng/mL 10/24/2021 5:29 PM CDT [facility] Comment: The recommendations for 25-Hydroxy Vitamin D clinical decision points are as follows: ? Deficient: ? <20.0 ng/mL ? Insufficient: ??20.0 - 29.9 ng/mL ? Sufficient: ? > or =30.0 ng/mL If the 25-Hydroxy Vitamin D results are inconsitent with clinical evidence, it is recommended that follow-up testing using a method such as LC/MS/MS be performed to confirm the result. Reference: ?The Endocrine Society Clinical Practice Guidelines. 2011 ? Blood BLOOD SPECIMEN / Unknown Lab Venipuncture / Unknown 10/24/2021 3:04 PM CDT 10/24/2021 4:55 PM CDT Yosi Bustamante MD LAB - CHEMISTRY ORD ERABLES Performing Organization Address [facility]/State/[facility] Co de Phone Number [address] [address], [facility] [phone] * (ABNORMAL) RENAL FUNCTION PANEL (10/24/2021 3:04 PM CDT) BUN 10 7 - 26 mg/dL 10/24/2021 5:29 PM CDT [facility] Creatinine 0.69 0.56 - 0.96 mg/dL 10/24/2021 5:29 PM CDT [facility] Sodium 141 136 - 145 mmol/L 10/24/2021 5:29 PM CDT [facility] Potassium 4.1 3.5 - 4.5 mmol/L 10/24/2021 5:29 PM CDT [facility] Chloride 105 98 - 107 mmol/L 10/24/2021 5:29 PM CDT [facility] CO2 24 22 - 29 mmol/L 10/24/2021 5:29 PM CDT [facility] Glucose 97 70 - 115 mg/dL 10/24/2021 5:29 PM CDT [facility] Albumin 4.0 3.4 - 5.0 g/dL 10/24/2021 5:29 PM CDT [facility] Calcium 8.3(L) 8.4 - 10.2 mg/dL 10/24/2021 5:29 PM T [facility] Phosphorus 3.8 2.9 - 5.1 mg/dL 10/24/2021 5:29 PM T [facility] Anion Gap 16 8 - 18 10/24/2021 5:29 PM T [facility] BUN/Creatinine Ratio 14 7 - 23 10/24/2021 5:29 PM T [facility] Osmolality Calculated 291 270 - 300 mOsm/kg 10/24/2021 5:29 PM T [facility] eGFR by CKD-EPI >90 >=90 mL/min/1.7 3 m2 10/24/2021 5:29 PM T [facility] Blood BLOOD SPECIMEN / Unknown Lab Venipuncture / Unknown 10/24/2021 3:04 PM CDT 10/24/2021 4:55 PM CDT Yosi Bustamante MD LAB - CHEMISTRY ORD ERABLES Performing Organization Address [facility]/ZIP Co de Phone Number [facility] [address] [place] [address], [facility] [phone] * THYROGLOBULIN REFLEX PROFILE (10/24/2021 3:04 PM CDT) Thyroglobulin Antibody <1.0 0.0 - 0.9 IU/mL 10/28/2021 1:06 AM CDT [facility] ([facility]) Comment:Thyroglobulin Antibo dy measured by [facility] Methodology Blood BLOOD SPECIMEN / Unknown Lab Venipuncture / Unknown 10/24/2021 3:04 PM CDT 10/24/2021 3:31 PM CDT Narrative [facility] ([facility]) - 10/28/2021 1:06 AM CDT Performed at: ??01 - [facility] [address] [place], [place] ??[id number] Manufacturing Engineering Intern: Oral Melendez PhD, Phone: ??[phone] Yosi Bustamante MD LAB - CHEMISTRY ORD JENISE Performing Organization Address City/[facility]/ZIP Co de Phone Number [facility] ([facility]) [address] [place] [address], [facility] * (ABNORMAL) TSH REFLEX FREE T4 (10/24/2021 3:04 PM CDT) TSH <0.010(L) 0.350 - 4.940 uIU/mL 10/24/2021 5:29 PM CDT [facility] Blood BLOOD SPECIMEN / Unknown Lab Venipuncture / Unknown 10/24/2021 3:04 PM CDT 10/24/2021 4:55 PM CDT Yosi Bustamante MD LAB - CHEMISTRY ORD JENISE Performing Organization Address City/[facility]/ZIP Co de Phone Number [facility] [address] [place] [address], [facility] [phone] documented in this encounter Visit Diagnoses Diagnosis Postoperative hypothyroidism- Primary Postsurgical hypothyroidism Thyroid cancer (HCC) Malignant neoplasm of thyroid gland Hypocalcemia Other hypoparathyroidism (HCC) documented in this encounter Care Teams Radioactive Waste Disposal Dispatcher Relationship Specialty Start Date End Date Taniya Grimes MD [address] [facility] 2L DIV OF [facility] [place] [address] PCP - General 07/01/20 05/10/22 Marylu Marie DO [address] [facility] 2L DIV OF [facility] [place] [address] Resident - PCP Student Resident 06/26/20 01/11/22 documented as of this encounter
--- OUTSIDE RECORDS SUMMARY | 2024-07-23 07:17 | XMS_ITS | Encounter Summary ---
Author Organization [facility] Health Address [address] [facility] [place] [address] Care Team Providers Care Senior Marketing Engineer Name Role Phone Marylu Marie DO Unavailable Taniya Grimes MD Primary Care Provider Encounter Details Date Type Department Care Team (Latest Contact Info) Description 10/17/2021 Orders Only [facility] Endocrinology, Diabetes and Metabolism [address] [place] [address], [place] [phone] Yosi Bustamante MD [address] [place] [address] of Endocrinology [place], [place] [phone] Postoperative hypothyroidism; Thyroid cancer (HCC); Hypocalcemia; Other hypoparathyroidism Social [...] st Contact Info) Description 07/25/2024 10:00 AM BIOLOGY DEPARTMENT CHAIR Office Visit [facility] - Endocrinology [address] [place] [phone] Yosi Bustamante MD [address] [place] [address] 2L [place] [address] 07/26/2024 10:00 AM BIOLOGY DEPARTMENT CHAIR Appointment [facility] DIAGNOSTIC RAD [address] [place] [address] Neri Delgado MD [address] [place] [address] 07/26/2024 10:00 AM BIOLOGY DEPARTMENT CHAIR Office Visit [facility] - ENT [address] [place] [phone] Myra Farmer, POTTERY DECORATOR [address] [place] [address] 2L [place] [address] 07/26/2024 11:15 AM BIOLOGY DEPARTMENT CHAIR Office Visit [facility] - ENT [address] [place] [phone] Neri Delgado MD [address] [place] [address] 08/02/2024 2:20 PM BIOLOGY DEPARTMENT CHAIR Appointment [facility] [address] [place] [address] 08/02/2024 3:00 PM BIOLOGY DEPARTMENT CHAIR Office Visit [facility] - Hematology/Oncology [address] [place] [phone] Remi Beckett MD [address] [place] [address] 08/18/2024 1:45 PM BIOLOGY DEPARTMENT CHAIR [facility] [address] [place] [address] Neri Delgado MD [address] [place] [address] documented as of this encounter Visit Diagnoses Diagnosis Postoperative hypothyroidism Postsurgical hypothyroidism Thyroid cancer (HCC) Malignant neoplasm of thyroid gland Hypocalcemia Other hypoparathyroidism (HCC) documented in this encounter Care Teams Senior Marketing Engineer Relationship Specialty Start Date End Date Taniya Grimes MD [address] [place] [address] 2L DIV OF [facility] [place] [address] PCP - General 07/01/20 05/10/22 Marylu Marie DO [address] [place] [address] 2L DIV OF [facility] [address] Resident - PCP Student Resident 06/26/20 01/11/22 documented as of this encounter
--- OUTSIDE RECORDS SUMMARY | 2024-07-23 07:17 | XMS_ITS | Encounter Summary ---
Author Organization [facility] Health Address [address] [facility] [place] [address] Care Team Providers Care Manager Ems Name Role Phone Marylu Marie DO Unavailable [phone] Taniya Grimes MD Primary Care Provider Encounter Details Date Type Department Care Team (Latest Contact Info) Description 10/08/2021 Travel Social History Tobacco Use Types Packs/Day [...] Contact Info) Description 07/25/2024 10:00 AM SUPERVISOR PARK WORKERS [facility] [address] [place] [phone] Yosi Bustamante MD [address] [place] [address] 2L [place] [address] 07/26/2024 10:00 AM SUPERVISOR PARK WORKERS Appointment [facility] DIAGNOSTIC RAD [address] [place] [address] Neri Delgado MD [address] [place] [address] 07/26/2024 10:00 AM SUPERVISOR PARK WORKERS Office Visit [facility] - ENT [address] [place] [phone] Myra Farmer, CASING CREW [address] [place] [address] 2L [place] [phone] 07/26/2024 11:15 AM SUPERVISOR PARK WORKERS Office Visit [facility] - ENT [address] [place] [phone] Neri Delgado MD [address] [place] [address] 08/02/2024 2:20 PM SUPERVISOR PARK WORKERS Appointment [facility] [address] [place] [address] 08/02/2024 3:00 PM SUPERVISOR PARK WORKERS Office Visit [facility]ician Group - Hematology/Oncology [address] [place] [phone] Remi Beckett MD [address] [place] [phone] 08/18/2024 1:45 PM SUPERVISOR PARK WORKERS Office Visit [facility] - ENT [address] [place] [phone] Neri Delgado MD [address] [place] [address] documented as of this encounter Visit Diagnoses Not on filedocumented in this encounter Care Teams Manager Ems Relationship Specialty Start Date End Date Taniya Grimes MD [address] [place] [address] 2L DIV OF [facility] [place] [address] PCP - General 07/01/20 05/10/22 Marylu Marie DO [address] [place] [address] 2L DIV OF [facility] [place] [address] Resident - PCP Student Resident 06/26/20 01/11/22 documented as of this encounter
--- OUTSIDE RECORDS SUMMARY | 2024-07-23 07:17 | XMS_ITS | Encounter Summary ---
Author Organization [facility] Health Address [address] [facility] [place] [address] Care Team Providers Care Road Engineer Freight Name Role Phone Marylu Marie DO Unavailable Taniya Grimes MD Primary Care Provider [phone] Reason for Visit * Reason Onset Date Comments LABS ONLY 10/15/2021 Encounter Details Date Type Department Care Team (Late st Contact Info) Description 10/15/2021 Telephone [facility] Endocrinology, Diabetes and Metabolism [address] [place] [address], [facility] [place] [phone] Yosi Bustamante MD [address] [place] [address] of [place], [place] [phone] LABS ONLY Social History Tobacco Use Types Packs/Day Years [...] encounter Miscellaneous Notes * Telephone Encounter - Yaima Morales - 10/15/2021 3:21 PM CDT I went ahead and put in another order for the patient and faxed it over to the patients preferred lab and notified the patient that they should be ready for her * Telephone Encounter - Yaima Morales - 10/15/2021 10:28 AM CDT [facility] Lab called to inform Dr Bustamante about the labwork Thyroglobulin Reflex Profile & TSH from 10/08/21 they both were canceled documented in this encounter Plan of Treatment Upcoming Encounters Date Type Department Care Team (Late st Contact Info) Description 07/25/2024 10:00 AM BUNCH TRIMMER MOLD Office Visit [facility] - Endocrinology [address] [place] [phone] Yosi Bustamante MD [address] [place] [address] [place] [address] 07/26/2024 10:00 AM BUNCH TRIMMER MOLD Appointment [facility] DIAGNOSTIC RAD [address] [place] [address] Neri Delgado MD [address] [place] [address] 07/26/2024 10:00 AM BUNCH TRIMMER MOLD Office Visit [facility] - ENT [address] [place] [phone] Myra Farmer, OFFICE RUNNER [address] [place] [address] 2L [place] [phone] 07/26/2024 11:15 AM BUNCH TRIMMER MOLD [facility] [address] [place] [phone] Neri Delgado MD [address] [place] [address] 08/02/2024 2:20 PM BUNCH TRIMMER MOLD Appointment [facility] [address] [place] [address] 08/02/2024 3:00 PM BUNCH TRIMMER MOLD Office Visit [facility] Group - Hematology/Oncology [address] [place] [phone] Remi Beckett MD [address] [place] [phone] 08/18/2024 1:45 PM BUNCH TRIMMER MOLD [facility] [address] [place] [phone] Neri Delgado MD [address] [place] [address] documented as of this encounter Visit Diagnoses Not on filedocumented in this encounter Care Teams Road Engineer Freight Relationship Specialty Start Date End Date Taniya Grimes MD [address] [place] [address] 2L DIV OF GEN [place] [phone] PCP - General 07/01/20 05/10/22 Marylu Marie DO [address] [place] [address] 2L DIV OF [place] [address] Resident - PCP Student Resident 06/26/20 01/11/22 documented as of this encounter
--- OUTSIDE RECORDS SUMMARY | 2024-07-23 07:17 | XMS_ITS | Encounter Summary ---
Author Organization [facility] Health Address [address] [facility] [place] [address] Care Team Providers Care Photographic Enlarger Operator Name Role Phone Marylu Marie DO Unavailable [phone] Taniya Grimes MD Primary Care Provider [phone] Encounter Details Date Type Department Care Team (Late st Contact Info) Description 10/15/2021 Orders Only [facility] Endocrinology, Diabetes and Metabolism [address] [place] [address], [place] [phone] Yosi Bustamante MD [address] [place] [address] of Endocrinology [place], [place] [phone] Other hypoparathyroidism Social History Tobacco Use Types [...] st Contact Info) Description 07/25/2024 10:00 AM NUTRITION THERAPIST Office Visit [facility] - Endocrinology [address] [place] [phone] Yosi Bustamante MD [address] [place] [address] 2L [place] [address] 07/26/2024 10:00 AM NUTRITION THERAPIST Appointment [facility] DIAGNOSTIC RAD [address] [place] [address] Neri Delgado MD [address] [place] [address] 07/26/2024 10:00 AM NUTRITION THERAPIST Office Visit [facility] - ENT [address] [place] [phone] Myra Farmer, PIPE ORGAN BUILDER [address] [place] [address] 2L [place] [address] 07/26/2024 11:15 AM NUTRITION THERAPIST Office Visit [facility] - ENT [address] [place] [phone] Neri Delgado MD [address] [place] [address] 08/02/2024 2:20 PM NUTRITION THERAPIST Appointment [facility] [address] [place] [address] 08/02/2024 3:00 PM NUTRITION THERAPIST Office Visit [facility] - Hematology/Oncology [address] [place] [phone] Remi Beckett MD [address] [place] [phone] 08/18/2024 1:45 PM NUTRITION THERAPIST Office Visit [facility] - ENT [address] [place] [phone] Neri Delgado MD [address] [place] [address] documented as of this encounter Visit Diagnoses Diagnosis Other hypoparathyroidism (HCC)- Primary documented in this encounter Care Teams Photographic Enlarger Operator Relationship Specialty Start Date End Date Taniya Grimes MD [address] [place] [address] 2[place] [phone] PCP - General 07/01/20 05/10/22 Marylu Marie DO [address] [place] [address] 2[place] [address] Resident - PCP Student Resident 06/26/20 01/11/22 documented as of this encounter
--- OUTSIDE RECORDS SUMMARY | 2024-07-23 07:17 | XMS_ITS | Encounter Summary ---
Author Organization [facility] Address [address] [place] [address] Care Team Providers Care Validation Technician Name Role Phone Marylu Marie DO Unavailable Taniya Grimes MD Primary Care Provider Reason for Referral * Evaluate (Routine) - Closed Specialty Diagnoses / Procedures Referred By Yuan robins Referred To Contact ENT-Otolaryngology Diagnoses Postoperative hypothyroidism Thyroid cancer (HCC) Hypocalcemia Other hypoparathyroidism (HCC) Yosi Bustamante MD [address] [place] [address] [address] [place] [address] Neri Delgado MD [address] [place] [id number] Referral ID Status Reason Start Date Expiration Date V isits Requested Visits Authorized [id number] Closed Specialty Services Required 10/08/2021 10/08/2022 1 1 Reason for Visit * Reason Comments Thyroid Cancer Thyroid Problem HYPOTHYROIDISM Thyroid Problem S/P THYROIDECTOMY, S /P RADIOACTIVE IODINE ABLATION General HYPOPARATHYROIDISM, HYPOCALCEMIA Encounter Details Date Type Department Care Team (Latest Contact Info) Description 10/08/2021 3:00 PM CDT Office Visit [facility] [address] [place] [phone] Yosi Bustamante MD [address] [place] [address] [address] [place] [address] Postoperative hypothyroidism (Primary Dx); Thyroid cancer (HCC); [...] Sign Reading Time Taken Comments Blood Pressure 118/78 10/08/2021 3:15 PM CDT Pulse 77 10/08/2021 3:15 PM CDT Temperature 36.1 ??C (96.9 ??F) 10/08/2021 3:15 PM CD T Respiratory Rate - - Oxygen Saturation 97% 10/08/2021 3:15 PM CDT Inhaled Oxygen Concentration - - Weight 71.3 kg (157 lb 3.2 oz) 10/08/2021 3:15 P M CDT Height 157.5 cm (5' 2) 10/08/2021 3:15 PM CDT Body Mass Index 28.75 10/08/2021 3:15 PM CDT documented in this encounter [...] this encounter Patient Instructions * Patient Instructions* Danette Yang - 10/08/2021 3:14 PM CDT If you have an Insulin Pump, Meter or a Continuous Glucose Monitor, please BRING IT TO EVERY VISIT and present it to the Endo rooming staff when you arrive in clinic. APPOINTMENTS: option 1 or you can send a ticketstreet message. Normal business hours are from 8:00 am to 4:30 pm Wednesday through Wednesday. Fax# is [phone]. REFILL REQUESTS: contact your pharmacy who will reach out to us. If you have changes to your prescription, you will need to contact us directly at [phone] and select option 2 or send your Normal message. We request that all prescription refills be requested during regular office phone hours. If your prescription requires a prior authorization, it may take several days for us to get approval from [employer] company before we can refill your prescription. Please do not wait until you are completely out before contacting us. MEDICAL EMERGENCY: Please call 911 or go to the nearest Emergency Room. After hours urgent calls that cannot wait until phone lines are open on the next business day are given to the Marine Equipment Preservation Inspector physician radiation control worker. Please call [phone] and identify yourself as a patient in our practice needing to speak to Marine Equipment Preservation Inspector. The portable canteen operator will contact the physician radiation control worker. You can generally expect a return call within 30 minutes. On weekends, physicians are seeing hospitalized patients and there may be a longer wait. Test and laboratory results: Our practice typically reports lab and test results through letters orMyChart. Please allow 10 days from when your tests are completed to receive the results in the mail. Labs performed outside of [facility] facility, [facility] or [facility] may delay the results getting to us. Please contact the lab and request that they are faxed to us at [phone]. IF GOING TO [facility] or [facility]- TAKE LAB ORDER WITH YOU or they may turn you away [facility]: Patients with 3 consecutively missed appointments OR 3 missed appointments in a 12 month period will no longer be seen by Endocrinology. They will be asked to seek consultation outside of [facility]. A missed appointment is defined as: ??? Arriving to a scheduled appointment too late to be seen (Patients who arrive to clinic later than their scheduled appointment time may not be seen) ??? Not showing up or calling 24-48 hours prior to an appointment ??? An appointment cancelled less than 24 hours in advance ADDRESS: [address] [place] [id number] Website: [email or web address] for additional information about [facility] and an interactive health encyclopedia. BP 118/78 (BP SITE: RIGHT ARM, BP POSITION: SITTING, BP CUFF SIZE: 11) Pulse 77 Temp 96.9 ??F (36.1??C) (Temporal) Ht 5' 2 (1.575 m) Wt 157 lb 3.2 oz (71.3 kg) SpO2 97% BMI 28.75 kg/m2 PLAN LAB SOON STANDING ORDER FOR [...] BEEN SIX MONTHS SINCE RADIOACTIVE IODINE TREATMENT documented in this encounter Progress Notes * Yosi Bustamante MD - 10/08/2021 3:00 PM CDT HISTORY / PROGRESS NOTE Date: 10/08/2021 Chief Complaint or Purpose for Referral: HYPOTHYROIDISM THYROID CANCER HYPOCALCEMIA HYPOPARATHYROIDISM History of Present Illness: 61 YEAR OLD WHITE FEMALE ELE 01/13/2021 No dysphagia OCCAS CHOKING ON LIQUIDS THROAT TIGHT (+) HEADACHES , POSTERIOR NECK (+) No dyspnea No dysphonia No change size of neck neck pain or discomfort(+) No nervousness No shakiness No palpitations Weight INCREASED Wt Readings from Last 3 Encounters: 10/08/21 157 lb 3.2 oz (71.3 kg) 05/22/21 145 lb (65.8 kg) 04/01/21 145 lb 9.6 oz (66 kg) BM daily No diarrhea No constipation nocturia ONE TIME per night No edema No proximal muscle weakness HOSP FOR KIDNEY FAILURE FOR FIVE DAYS AFTER SURGERY TOOTH EXTRACTION OUTPATIENT SINCE LAST VISIT APPETITE GOOD NO NAUSEA NO VOMITING WAITING FOR HIP SURGERY HIP PAIN LAB 03/19/2021 NUC MED PROCEDURE: I-131 thyroid therapy for metastatic papillary [...] other persons. Written informed consent was obtained. IMPRESSION: Successful oral administration of 157.6 mCi Iodine-131 for the treatment of metastatic papillary thyroid cancer. This report was approved by Dru Siu on 03/19/2021 5:28 PM . IDr. DISHA M.D. have personally reviewed and interpreted this examination/study. This report was electronically signed by DISHA ALBERT M.D. on 03/19/2021 6:06 PM . 03/24/2021 NUC MED PROCEDURE: Post I-131 therapy whole body imaging. [...] MOSELEY D.O. on 03/24/2021 3:12 PM . Results for BRISA CAICEDO ( ) as of 10/07/2021 12:31 Ref. Range 03/17/2021 10:32 03/19/2021 11:20 03/21/2021 10:47 TSH 0.350 - 4.940 uIU/mL <0.010 (L) 139.797 (H) T4 Free 0.7 - 1.5 ng/dL 1.5 1.4 Thyroglobulin by ANTONIETA 1.5 - 38.5 ng/mL 1.7 7.9 8.4 Thyroglobulin Antibody 0.0 - 0.9 IU/mL <1.0 <1.0 <1.0 Ref. Range 03/07/2020 15:19 08/21/2020 04:25 09/11/2020 14:13 11/11/2020 15:49 02/14/2021 12:30 TSH 0.350 - 4.940 uIU/mL 1.520 2.526 0.900 0.028 (L) T4 Free 0.7 - 1.5 ng/dL 1.1 1.4 Thyroglobulin by ANTONIETA 1.5 - 38.5 ng/mL 192.2 (H) 0.9 (L) 1.9 Thyroglobulin Antibody 0.0 - 0.9 IU/mL <1.0 <1.0 <1.0 Collected 08/19/2020 ??9:43 AM ?? Status: Edited [...] - Submucosal tissue involved by tumor ?? at ??2:35 PM Collected 04/18/2020 ??4:07 PM ?? Status: Final result ?? Visible to patient: No (not released) ?? Dx: Thyroid nodule ?? 0 Result Notes Component Specimen Adequacy Adequate cellularity for evaluation. Final Diagnosis Thyroid nodule, right, US-FNA: - Benign - Consistent with benign follicular nodule Collected 08/01/2020 ??2:51 PM ?? Status: Final result ?? Visible to patient: No (not released) ?? Dx: Thyroid nodule ?? 0 Result Notes Component Specimen Adequacy Adequate cellularity for evaluation. 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 at ??3:26 PM Synoptic Report THYROID GLAND 8th Edition - Protocol posted: 08/30/2019 THYROID GLAND: RESECTION - All Specimens Clinical History No known radiation exposure SPECIMEN Procedure Total thyroidectomy TUMOR Tumor Focality Multifocal Tumor Characteristics Tumor Site Right lobe Left lobe Histologic Type Papillary carcinoma Tumor Size Greatest Dimension (Centimeters): 3.2 cm Extrathyroidal Extension Present, clinical / macroscopic AND histologically confirmed Invading subcutaneous soft tissues, larynx, trachea, esophagus or recurrent laryngeal nerve (i.e., pT4a) Angioinvasion (vascular invasion) Present Lymphatic Invasion Present Perineural Invasion Present Margins Involved by carcinoma Site(s) of Involvement right tracheal margins LYMPH NODES Number of Lymph Nodes Involved 10 Tony Levels Involved Level Right Lateral Level II Right Lateral Level III Right Lateral Level IV Left Lateral Level III Left Lateral Level IV Left Lateral Level V Size of Largest Metastatic Deposit (Centimeters) 2.4 cm Extranodal Extension (JADON) Present Number of Lymph Nodes Examined 83 Tony Levels Examined Level Right Lateral Level II Right Lateral Level III Right Lateral Level IV Right Lateral Level V Left Lateral Level II Left Lateral Level III Left Lateral Level IV Left Lateral Level V PATHOLOGIC STAGE CLASSIFICATION (pTNM, AJCC 8th Edition) Primary Tumor (pT) pT4a Regional Lymph Nodes (pN) pN1b . 03/07/2020 US EXAMINATION: Thyroid sonogram HISTORY: E04.1: Thyroid nodule [...] TR 4 nodule, recommend short-term follow-up (image [id number]). The second nodule is well-circumscribed, hypoechoic, solid nodule, measuring 0.6 x 0.6 x 0.3 cm; this is a TR 4 nodule, which is not suspicious (image [id number]). The isthmus is mildly thickened. Vascularity of [...] its size. Dictated by Kendall Quiroz MD (Migrant Leader) I, Dr. RU BAILEY M.D. have personally reviewed and interpreted this examination/study. This report was electronically signed by RU BAILEY M.D. on 03/12/2020 9:04 AM . 08/01/2020 FNA BX AND US Narrative & Impression History: 60 year oldfemalerecemtly found to have a right thyroid nodule requiring FNA for further evaluation. Today patient presents for scheduled image guided biopsy and related procedures. Operators: 1.Dr. Wright, Attending Physician 2.Dr. Molly Rao, Resident Physician Anesthesia: Local - 6 mL of 1% lidocaine ??Procedure: 1.Limited ultrasound of the thyroid. 2.Ultrasound-guided fine [...] of the thyroid was performed which demonstrated . A percutaneous [...] no immediate complications associated with the procedure. ? Impression: Ultrasound-guided fine needle aspiration of a right thyroid nodule, as described above.The pathology report is pending at the time of this dictation. I, Dr. Maryse Wright, was present and performed/supervised the entire procedure. Dictated by Molly Rao M.D. (resident physician in radiology) Dr. MARYSE Mckeon M.D. have personally reviewed and interpreted this examination/study. This report was electronically signed by MARYSE WRIGHT M.D. on 08/11/2020 6:37 PM . (Brief 1-3; Ext. >4) Past Medical [...] AT BEDTIME, Disp: 30 tablet, Rfl: 3 clonazePAM (KLONOPIN) 0.5 MG tablet, Take 3 (three) tablets by mouth once daily, Disp: , Rfl: famotidine (PEPCID) 20 MG tablet, Take 20 mg by mouth 2 times daily as needed, Disp: , Rfl: fluticasone propionate (FLONASE) 50 MCG/ACT nasal spray, [place] 2 (two) sprays into each nostril once daily, Disp: 48 g, Rfl: 0 gabapentin (NEURONTIN) 300 MG capsule, TAKE 1 CAPSULE BY MOUTH THREE TIMES A DAY, Disp: 90 capsule,Rfl: 5 LONDXH-DJEEPUIKL-UCQ-C-HYAL PO, Take 1 tablet by mouth 3 times daily, Disp: , Rfl: levothyroxine (SYNTHROID) 112 MCG tablet, Take 1 (one) tablet by mouth once daily, Disp: 90 tablet,Rfl: 4 Misc Natural Products (NEURIVA PO), Take 2 capsules by mouth every morning, Disp: , Rfl: pantoprazole EC (PROTONIX) 40 MG tablet, TAKE [...] Anaphylaxis Physical Exam: Constitutional: Vital Signs: BP 118/78 (BP SITE: RIGHT ARM, BP POSITION: SITTING, BP CUFF SIZE: 11)Pulse 77 Temp 96.9 ??F (36.1 ??C) (Temporal) Ht 5' 2 (1.575 m) Wt 157 lb 3.2 oz (71.3 kg) SpO2 97%BMI 28.75 kg/m2 Well developed, well nourished, white female, no acute distress, alert and oriented, normocephalic Appearance: WNL Eyes: Conjunctiva/lids WNL and EOM Intact ENT, Mouth: Hearing WNL and External ear/nose WNL Neck: No masses, symmetrical, Thyroid not enlarged and SURG SCAR ANT AND LAT NECK , NO PALPABLE THYROID TISSUE Resp.:Effort nonlabored Lymph: Neck WNL MS: Stable without dislocation, laxity, Muscle strength and tone WNL and WALKS WITH WALKER DUE TO HIP PAIN Areas Assessed: Head/neck, R/L upper extremities, Digits/nails [...] SIX MONTHS QUIT SMOKING REFER TO ENT Postoperative hypothyroidism - Plan: PROC ULTRASOUND THYROID W/WO FNA BIOPSY, levothyroxine (SYNTHROID) 112 MCG tablet, TSH, THYROGLOBULIN REFLEX PROFILE, RENAL FUNCTION PANEL, VITAMIN D 25-HYDROXY Thyroid cancer - Plan: PROC ULTRASOUND THYROID W/WO FNA BIOPSY, TSH, THYROGLOBULIN REFLEX PROFILE, RENAL FUNCTION PANEL, VITAMIN D 25-HYDROXY Hypocalcemia - Plan: PROC ULTRASOUND THYROID W/WO FNA BIOPSY, TSH, THYROGLOBULIN REFLEX PROFILE, RENAL FUNCTION PANEL, VITAMIN D 25-HYDROXY Other hypoparathyroidism - Plan: PROC ULTRASOUND THYROID W/WO FNA BIOPSY, TSH, THYROGLOBULIN REFLEXPROFILE, RENAL FUNCTION PANEL, VITAMIN D 25-HYDROXY Yosi Bustamante MD Professor of Internal Medicine Division of Endocrinology Department of Internal Medicine documented in this encounter Procedure Notes * Yosi Bustamante MD - 10/08/2021 3:06 PM CDTAssociated Order(s): PROC ULTRASOUND THYROID W/WO FNA BIOPSY Procedure(s): CO US SOFT TISS HEAD&NCK R-T IMG Pre-Procedure Diagnose(s): Postoperative hypothyroidism; Thyroid cancer (HCC); Hypocalcemia; Other hypoparathyroidism (HCC) Ultrasound Of Thyroid Ultrasound of the Thyroid PHYSICIAN Yosi Bustamante MD FELLOW NONE Test Date: 10/08/2021 Test Indication: Patient Active Problem List: Psychophysiologic insomnia Chronic fatigue Snoring Obsessive-compulsive disorder Headache Primary osteoarthritis of left hip Nicotine dependence High cholesterol Other psoriasis Complete paralysis of right vocal cord Hoarseness Tracheal mass Lymphadenopathy of head and neck region Cellulitis Postoperative hypothyroidism Thyroid cancer Hypocalcemia Other hypoparathyroidism Neoplasm of uncertain behavior of skin Other seborrheic keratosis Depression, unspecified Referring Physician: Dr. Taniya Grimes MD Procedure Preformed: Ultrasound Only COMPARED TO: NONE [...] TREATMENT Yosi Bustamante MD Division of Endocrinology documented in this encounter Plan of Treatment Upcoming Encounters Date Type Department Care Team (Late st Contact Info) Description 07/25/2024 10:00 AM IT SALES REPRESENTATIVE Office Visit [facility] - Endocrinology [address] [place] [address], [place] [address] Yosi Bustamante MD [address] [address] [place] [address] 07/26/2024 10:00 AM IT SALES REPRESENTATIVE Appointment [facility] DIAGNOSTIC RAD [address] [place] [address] Neri Delgado MD [address] [place] [phone] 07/26/2024 10:00 AM IT SALES REPRESENTATIVE Office Visit [facility] - ENT [address] [place] [phone] Myra Farmer, ACID LOADER [address] [place] [address] [place] [phone] 07/26/2024 11:15 AM IT SALES REPRESENTATIVE Office Visit [facility] - ENT [address] [place] [phone] Neri Delgado MD [address] [place] [id number] 08/02/2024 2:20 PM IT SALES REPRESENTATIVE Appointment [facility]ION [facility] [address] [place] [phone] 08/02/2024 3:00 PM IT SALES REPRESENTATIVE Office Visit [facility] - Hematology/Oncology [address] [place] [phone] Remi Beckett MD [address] [place] [phone] 08/18/2024 1:45 PM IT SALES REPRESENTATIVE [facility] [address] [place] [phone] Neri Delgado MD [address] [place] [phone] Scheduled Referrals Name Type Priority Associated Diagnoses Orde r Schedule Ref to ENT Otol[facility]ology - [facility] Outpatient Referral Routine Postoperative hypothyroidism Thyroid cancer (HCC) Hypocalcemia Other hypoparathyroidism Expected: 10/08/2021 (Approximate), Expires: 10/08/2022 documented as of this encounter Procedures Procedure Name Priority Date/Time Associated Diagnosis Comments CO US SOFT TISS HEAD&NCK R-T IMG Routine 10/08/2021 3:06 PM CDT Postoperative hypothyroidism Thyroid cancer (HCC) Hypocalcemia Other hypoparathyroidism documented in this encounter Results * (ABNORMAL) VITAMIN D 25-HYDROXY (08/14/2022 3:21 PM IT SALES REPRESENTATIVE) Vitamin D, 25 Hydroxy 21.0(L) 30.0 - 80.0 ng/mL 08/14/2022 4:45 PM IT SALES REPRESENTATIVE [facility] Comment: The recommendations for 25-Hydroxy Vitamin [...] Lab Venipuncture / Unknown 08/14/2022 3:21 PM IT SALES REPRESENTATIVE 08/14/2022 3:39 PM IT SALES REPRESENTATIVE Yosi Bustamante MD LAB - CHEMISTRY ORD ERABLES [facility] [address] [place] [address], [facility] [phone] * (ABNORMAL) RENAL FUNCTION PANEL (08/14/2022 3:21 PM IT SALES REPRESENTATIVE) BUN 13 7 - 26 mg/dL 08/14/2022 [...] Lab Venipuncture / Unknown 08/14/2022 3:21 PM IT SALES REPRESENTATIVE 08/14/2022 3:39 PM [facility] Yosi Bustamante MD LAB - CHEMISTRY ORD ERABLES [facility] [address] [place] [address], [facility] [phone] * VITAMIN D 25-HYDROXY (05/01/2022 1:17 PM CDT) [facility] Vitamin D, 25 Hydroxy 31.0 30.0 - 80.0 ng/mL 05/01/2022 2:38 PM CDT [facility] Comment: The recommendations for 25-Hydroxy Vitamin [...] - CHEMISTRY ORD ERABLES Performing Organization Address City/State/[facility] Co de Phone Number [facility] [address] [place] [phone], [facility] [phone] * (ABNORMAL) RENAL FUNCTION PANEL (05/01/2022 1:17 PM CDT) [facility] BUN 24 7 - 26 mg/dL 05/01/2022 2:20 PM CDT [facility] Creatinine 1.05(H) 0.56 - 0.96 mg/dL 05/01/2022 2:20 PM CDT [facility] Sodium 135(L) 136 - 145 mmol/L 05/01/2022 2:20 PM [facility] Potassium 4.3 3.5 - 4.5 mmol/L 05/01/2022 2:20 PM [facility] Chloride 99 98 - 107 mmol/L 05/01/2022 2:20 PM [facility] CO2 25 22 - 29 mmol/L 05/01/2022 2:20 PM [facility] Glucose 97 70 - 115 mg/dL 05/01/2022 2:20 PM [facility] Albumin 4.0 3.4 - 5.0 g/dL 05/01/2022 2:20 PM [facility] Calcium 9.3 8.4 - 10.2 mg/dL 05/01/2022 2:20 PM [facility] Phosphorus 5.1 2.9 - 5.1 mg/dL 05/01/2022 2:20 PM [facility] Anion Gap 15 8 - 18 05/01/2022 2:20 PM [facility] BUN/Creatinine Ratio 23 7 - 23 05/01/2022 2:20 PM [facility] Osmolality Calculated 284 270 - 300 mOsm/kg 05/01/2022 2:20 PM [facility] eGFR by CKD-EPI 60(L) >=90 mL/min/1.7 3 m2 05/01/2022 2:20 PM [facility] Blood BLOOD SPECIMEN / Unknown Lab Venipuncture / Unknown 05/01/2022 1:17 PM CDT 05/01/2022 1:51 PM CDT Yosi Bustamante MD LAB - CHEMISTRY ORD ERABLES [facility] [address] [place] [address], [facility] [phone] * VITAMIN D 25-HYDROXY (10/24/2021 3:04 PM CDT) Vitamin D, 25 Hydroxy 36.0 30.0 - 80.0 ng/mL 10/24/2021 5:29 PM [facility] Comment: The recommendations for 25-Hydroxy Vitamin [...] - CHEMISTRY ORD ERABLES [facility] [address] [place] [address], [facility] [phone] * (ABNORMAL) RENAL FUNCTION PANEL (10/24/2021 3:04 PM CDT) BUN 10 7 - 26 mg/dL 10/24/2021 5:29 PM CDT [facility] Creatinine 0.69 0.56 - 0.96 mg/dL 10/24/2021 5:29 PM CDT [facility] Sodium 141 136 - 145 mmol/L 10/24/2021 5:29 PM CDT [facility] Potassium 4.1 3.5 - 4.5 mmol/L 10/24/2021 5:29 PM CDT [facility] Chloride 105 98 - 107 mmol/L 10/24/2021 5:29 PM CDT [facility] CO2 24 22 - 29 mmol/L 10/24/2021 5:29 PM CDT [facility] Glucose 97 70 - 115 mg/dL 10/24/2021 5:29 PM CDT [facility] Albumin 4.0 3.4 - 5.0 g/dL 10/24/2021 5:29 PM CDT [facility] Calcium 8.3(L) 8.4 - 10.2 mg/dL 10/24/2021 5:29 PM CDT [facility] Phosphorus 3.8 2.9 - 5.1 mg/dL 10/24/2021 5:29 PM T [facility] Anion Gap 16 8 - 18 10/24/2021 5:29 PM T [facility] BUN/Creatinine Ratio 14 7 - 23 10/24/2021 5:29 PM T [facility] Osmolality Calculated 291 270 - 300 mOsm/kg 10/24/2021 5:29 PM T [facility] eGFR by CKD-EPI >90 >=90 mL/min/1.7 3 m2 10/24/2021 5:29 PM T [facility] Blood BLOOD SPECIMEN / Unknown Lab Venipuncture / Unknown 10/24/2021 3:04 PM CDT 10/24/2021 4:55 PM CDT Yosi Bustamante MD LAB - CHEMISTRY ORD ERABLES Performing Organization Address [facility]/State/[facility] Co de Phone Number [facility] [address] [place] [phone], [facility] [phone] * VITAMIN D 25-HYDROXY (10/08/2021 4:37 PM CDT) Pathologist [facility] Vitamin D, 25 Hydroxy 35.0 30.0 - 80.0 ng/mL 10/08/2021 5:48 PM CDT [facility] Comment: The recommendations for 25-Hydroxy Vitamin [...] Reference: ?The Endocrine Society Clinical Practice Guidelines. 2010 ? Blood BLOOD SPECIMEN / Unknown Lab Venipuncture / Unknown 10/08/2021 4:37 PM CDT 10/08/2021 5:00 PM CDT Yosi Bustamante MD LAB - CHEMISTRY ORD ERABLES Performing Organization Address [facility]/State/ZIP Co de Phone Number [facility] [address] [place] [address], [facility] [phone] * (ABNORMAL) RENAL FUNCTION PANEL (10/08/2021 4:37 PM CDT) BUN 13 7 - 26 mg/dL 10/08/2021 5:32 PM [facility] Creatinine 0.68 0.56 - 0.96 mg/dL 10/08/2021 5:32 PM [facility] Sodium 141 136 - 145 mmol/L 10/08/2021 5:32 PM [facility] Potassium 4.0 3.5 - 4.5 mmol/L 10/08/2021 5:32 PM [facility] Chloride 104 98 - 107 mmol/L 10/08/2021 5:32 PM [facility] CO2 23 22 - 29 mmol/L 10/08/2021 5:32 PM [facility] Glucose 127(H) 70 - 115 mg/dL 10/08/2021 5:32 PM [facility] Albumin 3.8 3.4 - 5.0 g/dL 10/08/2021 5:32 PM [facility] Calcium 8.5 8.4 - 10.2 mg/dL 10/08/2021 5:32 PM [facility] Phosphorus 4.8 2.9 - 5.1 mg/dL 10/08/2021 5:32 PM CDT [facility] Anion Gap 18 8 - 18 10/08/2021 5:32 PM CDT [facility] BUN/Creatinine Ratio 19 7 - 23 10/08/2021 5:32 PM CDT [facility] Osmolality Calculated 294 270 - 300 mOsm/kg 10/08/2021 5:32 PM CDT [facility] eGFR by CKD-EPI >90 >=90 mL/min/1.7 3 m2 10/08/2021 5:32 PM CDT [facility] Blood BLOOD SPECIMEN / Unknown Lab Venipuncture / Unknown 10/08/2021 4:37 PM CDT 10/08/2021 5:00 PM CDT Yosi Bustamante MD LAB - CHEMISTRY ORD ERABLES [facility] [address] [place], [place] [address], [facility] [phone] * CO US SOFT TISS HEAD&NCK R-T IMG (10/08/2021 [...] (HCC) documented in this encounter Care Teams Validation Technician Relationship Specialty Start Date End Date Taniya Grimes MD [address] 2L DIV OF [facility] [place] [address] PCP - General 07/01/20 05/10/22 Marylu Marie DO [address] 2L DIV OF [facility] [place] [place] [address] Resident - PCP Student Resident 06/26/20 01/11/22 documented as of this encounter
--- OUTSIDE RECORDS SUMMARY | 2024-07-23 07:17 | XMS_ITS | Encounter Summary ---
Author Organization [facility] Health Address [address] [facility] [place] [address] Care Team Providers Care Finisher Hand Name Role Phone Marylu Marie DO Unavailable Taniya Grimes MD Primary Care Provider Encounter Details Date Type Department Care Team (Latest Contact Info) Description 10/08/2021 Orders Only [facility] Endocrinology, Diabetes and Metabolism [address] [place] [address], [place] [phone] Yosi Bustamante MD [address] [place] [address] of Endocrinology [place], [place] [phone] Postoperative hypothyroidism; Thyroid cancer (HCC); Hypocalcemia; Other [...] Contact Info) Description 07/25/2024 10:00 AM COMMERCIAL ESCROW ASSISTANT Office Visit [facility] - Endocrinology [address] [place] [phone] Yosi Bustamante MD [address] [place] [address] 2L Div [place] [address] 07/26/2024 10:00 AM COMMERCIAL ESCROW ASSISTANT Appointment [facility] DIAGNOSTIC RAD [address] [place] [address] Neri Delgado MD [address] [place] [address] 07/26/2024 10:00 AM COMMERCIAL ESCROW ASSISTANT Office Visit [facility] - ENT [address] [place] [phone] Myra Farmer, MANAGER OF HOUSEKEEPING [address] [place] [address] 2L DIV [place] [address] 07/26/2024 11:15 AM COMMERCIAL ESCROW ASSISTANT Office Visit [facility] - ENT [address] [place] [phone] Neri Delgado MD [address] [place] [address] 08/02/2024 2:20 PM COMMERCIAL ESCROW ASSISTANT Appointment [facility] [address] [place] [address] 08/02/2024 3:00 PM COMMERCIAL ESCROW ASSISTANT Office Visit [facility] - Hematology/Oncology [address] [place] [phone] Remi Beckett MD [address] [place] [address] 08/18/2024 1:45 PM COMMERCIAL ESCROW ASSISTANT [facility] - [facility] [address] [place] [address] Neri Delgado MD [address] [place] [address] documented as of this encounter Visit Diagnoses Diagnosis Postoperative hypothyroidism Postsurgical hypothyroidism Thyroid cancer (HCC) Malignant neoplasm of thyroid gland Hypocalcemia Other hypoparathyroidism (HCC) documented in this encounter Care Teams Finisher Hand Relationship Specialty Start Date End Date Taniya Grimes MD [address] [place] [address] 2L DIV OF [facility] [place] [address] PCP - General 07/01/20 05/10/22 Marylu Marie DO [address] [place] [address] 2L DIV OF [facility] [place] [address] Resident - PCP Student Resident 06/26/20 01/11/22 documented as of this encounter
--- OUTSIDE RECORDS SUMMARY | 2024-07-23 07:17 | XMS_ITS | Encounter Summary ---
Author Organization [facility] Health Address [address] [facility] [place] [address] Care Team Providers Care Transit Mechanic Name Role Phone Marylu Marie DO Unavailable Taniya Grimes MD Primary Care Provider Encounter Details Date Type Department Care Team (Latest Contact Info) Description 10/08/2021 4:20 PM CDT - 10/08/2021 11:59 PM CDT Hospital Encounter [facility] LAB OP DRAW STATION [address] [place] [address] Yosi Bustamante MD [address] [facility] 2L [facility] [place] [address] Discharge Disposition: Home or Self Care Social [...] fluticasone propionate (FLONASE) 50 MCG/ACT nasal spray Startex 2 (two) sprays into each nostril once daily 48 g 06/10/2021 10/20/2021 gabapentin (NEURONTIN) 300 MG capsuleIndications:Prima ry osteoarthritis of left hip TAKE 1 CAPSULE BY MOUTH THREE TIMES A DAY 90 capsule 5 10/08/2021 04/06/2022 [id number] YAL PO Take 1 tablet by mouth [...] st Contact Info) Description 07/25/2024 10:00 AM EXPERIMENTAL PREFLIGHT MECHANIC Office Visit [facility] Group - Endocrinology [address] [place] [phone] Yosi Bustamante MD [address] [place] [address] 2L [place] [address] 07/26/2024 10:00 AM EXPERIMENTAL PREFLIGHT MECHANIC Appointment [facility] DIAGNOSTIC RAD [address] [place] [address] Neri Delgado MD [address] [place] [address] 07/26/2024 10:00 AM EXPERIMENTAL PREFLIGHT MECHANIC Office Visit [facility] - ENT [address] [place] [phone] Myra Farmer, SIGNAL TOWER DIRECTOR [address] [place] [address] 2L [place] [address] 07/26/2024 11:15 AM EXPERIMENTAL PREFLIGHT MECHANIC Office Visit [facility] - ENT [address] [place] [phone] Neri Delgado MD [address] [place] [address] 08/02/2024 2:20 PM EXPERIMENTAL PREFLIGHT MECHANIC Appointment [facility]ENTER [address] [place] [address] 08/02/2024 3:00 PM EXPERIMENTAL PREFLIGHT MECHANIC Office Visit [facility] Group - Hematology/Oncology [address] [place] [phone] Remi Beckett MD [address] [place] [phone] 08/18/2024 1:45 PM EXPERIMENTAL PREFLIGHT MECHANIC Office Visit [facility] - ENT [address] [place] [phone] Neri Delgado MD [address] [place] [address] documented as of this encounter Procedures Procedure Name Priority Date/Time Associated Diagnosis Comments TSH REFLEX FREE T4 Routine 10/08/2021 4:37 PM CDT Thyroid cancer (HCC) Hypocalcemia Other hypoparathyroidism Postoperative hypothyroidism VITAMIN D 25-HYDROXY Routine 10/08/2021 4:37 PM CDT Postoperative hypothyroidism Thyroid cancer (HCC) Hypocalcemia Other hypoparathyroidism RENAL FUNCTION PANEL Routine 10/08/2021 4:37 PM CDT Postoperative hypothyroidism Thyroid cancer (HCC) Hypocalcemia Other hypoparathyroidism T4 FREE Routine 10/08/2021 4:37 PM CDT Thyroid cancer (HCC) Hypocalcemia Other hypoparathyroidism Postoperative hypothyroidism documented in this encounter Results * T4 FREE (10/08/2021 4:37 PM CDT) T4 Free 1.1 0.7 - 1.5 ng/dL 10/08/2021 6:22 PM CDT [facility] Blood BLOOD SPECIMEN / Unknown Lab Venipuncture / Unknown 10/08/2021 4:37 PM CDT 10/08/2021 5:00 PM CDT Yosi Bustamante MD LAB - CHEMISTRY ORD ERABLES Performing Organization Address [facility]/ZIP Co de Phone Number [facility] [address] [place] [address], [facility] [phone] * VITAMIN D 25-HYDROXY (10/08/2021 4:37 PM CDT) [facility] Vitamin D, 25 Hydroxy 35.0 30.0 - 80.0 ng/mL 10/08/2021 5:[address] [facility] Comment: The recommendations for 25-Hydroxy [...] - CHEMISTRY ORD ERABLES Performing Organization Address City/[facility]/ZIP Co de Phone Number [facility] [address] [place] [address], [place] [phone] * (ABNORMAL) RENAL FUNCTION PANEL (10/08/2021 4:37 PM CDT) [facility] BUN 13 7 - 26 mg/dL 10/08/2021 5:32 PM [facility] Creatinine 0.68 0.56 - 0.96 mg/dL 10/08/2021 5:32 PM [facility] Sodium 141 136 - 145 mmol/L 10/08/2021 5:32 PM [facility] Potassium 4.0 3.5 - 4.5 mmol/L 10/08/2021 5:32 PM [facility] Chloride 104 98 - 107 mmol/L 10/08/2021 5:32 PM [facility] CO2 23 22 - 29 mmol/L 10/08/2021 5:32 PM [facility] Glucose 127(H) 70 - 115 mg/dL 10/08/2021 5:32 PM [facility] Albumin 3.8 3.4 - 5.0 g/dL 10/08/2021 5:32 PM [facility] Calcium 8.5 8.4 - 10.2 mg/dL 10/08/2021 5:32 PM [facility] Phosphorus 4.8 2.9 - 5.1 mg/dL 10/08/2021 5:32 PM [facility] Anion Gap 18 8 - 18 10/08/2021 5:32 PM [facility] BUN/Creatinine Ratio 19 7 - 23 10/08/2021 5:32 PM [facility] Osmolality Calculated 294 270 - 300 mOsm/kg 10/08/2021 5:32 PM [facility] eGFR by CKD-EPI >90 >=90 mL/min/1.7 3 m2 10/08/2021 5:32 PM [facility] Blood BLOOD SPECIMEN / Unknown Lab Venipuncture / Unknown 10/08/2021 4:37 PM CDT 10/08/2021 5:00 PM CDT Yosi Bustamante MD LAB - CHEMISTRY ORD ERABLES [facility] [address] [place] [address], [facility] [phone] * (ABNORMAL) TSH REFLEX FREE T4 (10/08/2021 4:37 PM CDT) TSH <0.010(L) 0.350 - 4.940 uIU/mL 10/08/2021 5:48 PM CDT [facility] Blood BLOOD SPECIMEN / Unknown Lab Venipuncture / Unknown 10/08/2021 4:37 PM CDT 10/08/2021 5:00 PM CDT Yosi Bustamante MD LAB - CHEMISTRY ORD ERABLES [facility] [address] [place] [address], [facility] [phone] documented in this encounter Visit Diagnoses Diagnosis Thyroid cancer (HCC)- Primary Malignant neoplasm of thyroid gland Hypocalcemia Other hypoparathyroidism (HCC) Postoperative hypothyroidism Postsurgical hypothyroidism documented in this encounter Care Teams Transit Mechanic Relationship Specialty Start Date End Date Taniya Grimes MD [address] [facility] 2L DIV OF [facility] [place] [address] PCP - General 07/01/20 05/10/22 Marylu Marie DO [address] [facility] 2[place] [address] Resident - PCP Student Resident 06/26/20 01/11/22 documented as of this encounter
--- OUTSIDE RECORDS SUMMARY | 2024-07-23 07:18 | XMS_ITS | Encounter Summary ---
Author Organization [facility] Health Address [address] [facility] [place] [address] Care Team Providers Care Investigator Welfare Name Role Phone Marylu Marie DO Unavailable Taniya Grimes MD Primary Care Provider Reason for Visit * Reason Onset Date Comments Refill Request 04/22/2021 Encounter Details Date Type Department Care Team (Late st Contact Info) Description 04/22/2021 Telephone [facility] General Internal Medicine [address] [place] [address], [place] [address] Taniya Grimes MD [address] [place] [address] [place] [address] Refill Request Social History Tobacco Use Types Packs/Day Years Used Date Smoking Tobacco: Light Smoker Cigarettes 0.3 51 Started: 07/22/1973 Smokeless Tobacco: Never Comments:3-4 cig a day Alcohol Use Standard Drinks/Week Comments No 0 (1 standard drink = 0.6 oz pur e alcohol) Sex and Gender Information Value Date Recorded Sex Assigned at Not on file Gender Identity Not on file Sexual Orientation Not on file COVID-19 Exposure Response Date Recorded In the last month, have you been in contact with someone who was confirmed or suspected to have Coronavirus / COVID-19? No / Unsure 03/24/2021 12:15 PM CDT documented as of this encounter [...] Telephone Encounter - Zachary Hendricks RN - 04/22/2021 12:47 PM CDT Refill Request Brisa Hogan ELE: 07.11.20 NOV scheduled: 05.22.21 LRF: 4 Qty Disp: 30 # of refills: 5 Allergies: Allergies Allergen Reactions ??? Kiwi Extract Anaphylaxis Pended Medication Order: Requested Prescriptions Pending Prescriptions Disp Refills ??? pantoprazole EC (PROTONIX) 40 MG tablet 30 tablet 3 Sig: TAKE 1 TABLET BY MOUTH DAILY FOR STOMACH documented in this encounter Plan of Treatment Upcoming Encounters Date Type Department Care Team (Late st Contact Info) Description 07/25/2024 10:00 AM ORNAMENTAL METAL WORKER HELPER Office Visit [facility] - Endocrinology [address] [place] [phone] Yosi Bustamante MD [address] [place] [address] [place] [address] 07/26/2024 10:00 AM ORNAMENTAL METAL WORKER HELPER Appointment [facility] DIAGNOSTIC RAD [address] [place] [phone] Neri Delgado MD [address] [place] [address] 07/26/2024 10:00 AM ORNAMENTAL METAL WORKER HELPER Office Visit [facility] - ENT [address] [place] [phone] Myra Farmer, HOIST CYLINDER LOADER [address] [place] [address] 2L [place] [address] 07/26/2024 11:15 AM ORNAMENTAL METAL WORKER HELPER Office Visit [facility] - ENT [address] [place] [phone] Neri Delgado MD [address] [place] [address] 08/02/2024 2:20 PM ORNAMENTAL METAL WORKER HELPER Appointment [facility] [address] [place] [address] 08/02/2024 3:00 PM ORNAMENTAL METAL WORKER HELPER Office Visit [facility] - Hematology/Oncology [address] [place] [phone] Remi Beckett MD [address] [place] [phone] 08/18/2024 1:45 PM ORNAMENTAL METAL WORKER HELPER Office Visit [facility] - ENT [address] [place] [phone] Neri Delgado MD [address] [place] [address] documented as of this encounter Visit Diagnoses Diagnosis Gastroesophageal reflux disease, unspecified whether esophagitis present documented in this encounter Care Teams Investigator Welfare Relationship Specialty Start Date End Date Taniya Grimes MD [address] [place] [address] 2L DIV [place] [address] PCP - General 07/01/20 05/10/22 Marylu Marie DO [address] [place] [address] 2L DIV [place] [address] Resident - PCP Student Resident 06/26/20 01/11/22 documented as of this encounter
--- OUTSIDE RECORDS SUMMARY | 2024-07-23 07:18 | XMS_ITS | Encounter Summary ---
Author Organization [facility] Health Address [address] [facility] [place] [address] Care Team Providers Care Beveling Machine Operator Name Role Phone Marylu Marie DO Unavailable [phone] Taniya Grimes MD Primary Care Provider Reason for Visit * Reason Onset Date Comments MEDICATION REFILL 06/10/2021 Encounter Details Date Type Department Care Team (Late st Contact Info) Description 06/10/2021 Refill [facility] Medicine [address] [place] [address], [place] [address] Marylu Marie DO [address] [place] [address] [place] [address] MEDICATION REFILL Social History Tobacco Use Types [...] Telephone Encounter - Sita Cotter RN - 06/10/2021 10:52 AM REVERSE ENGINEER MEDICATION FILLED PER PROTOCOL Disposition of prescription: e-prescribed to preferred pharmacy Response to patient: None necessary RSE ENGINEER documented in this encounter Plan of Treatment Upcoming Encounters Date Type Department Care Team (Late st Contact Info) Description 07/25/2024 10:00 AM REVERSE ENGINEER [facility] [address] [place] [phone] Yosi Bustamante MD [address] [place] [address] 2L [place] [address] 07/26/2024 10:00 AM REVERSE ENGINEER Appointment [facility] DIAGNOSTIC RAD [address] [place] [address] Neri Delgado MD [address] [place] [address] 07/26/2024 10:00 AM REVERSE ENGINEER Office Visit [facility] - ENT [address] [place] [phone] Myra Farmer, YARD SWITCHER [address] [place] [address] 2L [place] [address] 07/26/2024 11:15 AM REVERSE ENGINEER Office Visit [facility] - ENT [address] [place] [phone] Neri Delgado MD [address] [place] [address] 08/02/2024 2:20 PM REVERSE ENGINEER Appointment [facility] [address] [place] [address] 08/02/2024 3:00 PM REVERSE ENGINEER Office Visit [facility] Group - Hematology/Oncology [address] [place] [phone] Remi Beckett MD [address] [place] [phone] 08/18/2024 1:45 PM REVERSE ENGINEER Office Visit [facility] Physician Group - ENT [address] [place] [phone] [place] [address] [place] [address] documented as of this encounter Visit Diagnoses Not on filedocumented in this encounter Care Teams Beveling Machine Operator Relationship Specialty Start Date End Date Taniya Grimes MD [address] [place] [address] 2L DIV OF [facility] [place] [phone] PCP - General 07/01/20 05/10/22 Marylu Marie DO [address] [place] [address] 2L DIV OF [facility] [address] Resident - PCP Student Resident 06/26/20 01/11/22 documented as of this encounter
--- OUTSIDE RECORDS SUMMARY | 2024-07-23 07:18 | XMS_ITS | Encounter Summary ---
Author Organization [facility] Health Address [address] [facility] [place] [address] Care Team Providers Care Biological Science Aide Name Role Phone Marylu Marie DO Unavailable Taniya Grimes MD Primary Care Provider [phone] Reason for Visit * Reason Onset Date Comments MEDICATION REFILL 04/11/2021 Encounter Details Date Type Department Care Team (Late st Contact Info) Description 04/11/2021 Refill [facility] [address] [place] [address], [facility] [place] [address] Taniya Grimes MD [address] [place] [address] [place] [address] MEDICATION REFILL Social History Tobacco [...] Telephone Encounter - Lexii Birch RN - 04/11/2021 12:38 PM CDT Pt states her former pcp had ordered fluticasone nasal spray for her. The medication is on her med list as historical. She is asking if Dr Marie can order the nasal spray. She states she has allergies both indoor and outdoor allergies and the Flonase helps her. Refill Request Brisa Hogan ELE: 07/11/20 NOV scheduled: 05/22/21 Allergies: Allergies Allergen Reactions ??? Kiwi Extract Anaphylaxis Pended Medication Order: Requested Prescriptions Pending Prescriptions Disp Refills ??? fluticasone propionate (FLONASE) 50 MCG/ACT nasal spray 16 g 0 Sig: Wolf 2 (two) sprays into each nostril once daily documented in this encounter Plan of Treatment Upcoming Encounters Date Type Department Care Team (Late st Contact Info) Description 07/25/2024 10:00 AM TRUST ADMINISTRATOR [facility] [address] [place] [address], [place] [phone] Yosi Bustamante MD [address] [place] [address] [place] [address] 07/26/2024 10:00 AM TRUST ADMINISTRATOR Appointment [facility] DIAGNOSTIC RAD [address] [place] [phone] Neri Delgado MD [address] [place] [address] 07/26/2024 10:00 AM TRUST ADMINISTRATOR Office Visit [facility] - ENT [address] [place] [phone] Myra Farmer, IMPACT HAMMER OPERATOR [address] [place] [address] 2L [place] [phone] 07/26/2024 11:15 AM TRUST ADMINISTRATOR Office Visit [facility] - ENT [address] [place] [phone] Neri Delgado MD [address] [place] [address] 08/02/2024 2:20 PM TRUST ADMINISTRATOR Appointment [facility] CENTER [address] [place] [address] 08/02/2024 3:00 PM TRUST ADMINISTRATOR Office Visit [facility] Physician Group - Hematology/Oncology [address] [place] [phone] Remi Beckett MD [address] [place] [phone] 08/18/2024 1:45 PM TRUST ADMINISTRATOR Office Visit [facility] - ENT [address] [place] [phone] Neri Delgado MD [address] [place] [address] documented as of this encounter Visit Diagnoses Not on filedocumented in this encounter Care Teams Biological Science Aide Relationship Specialty Start Date End Date Taniya Grimes MD [address] [place] [address] 2L DIV OF [place] [phone] PCP - General 07/01/20 05/10/22 Marylu Marie DO [address] [place] [address] 2L DIV OF [place] [address] Resident - PCP Student Resident 06/26/20 01/11/22 documented as of this encounter
--- OUTSIDE RECORDS SUMMARY | 2024-07-23 07:18 | XMS_ITS | Encounter Summary ---
Author Organization [facility] Health Address [address] [facility] [place] [address] Care Team Providers Care Thread Grinder Name Role Phone Marylu Marie DO Unavailable Taniya Grimes MD Primary Care Provider Encounter Details Date Type Department Care Team (Latest Contact Info) Description 08/22/2021 Orders Only [facility] Endocrinology, Diabetes and Metabolism [address] [place] [address], [facility] [place] [phone] Yosi Bustamante MD [address] [place] [address] of Endocrinology [place], [place] [phone] Postoperative hypothyroidism; Thyroid cancer (HCC); Hypocalcemia; Other [...] st Contact Info) Description 07/25/2024 10:00 AM INDUCTION MACHINE OPERATOR [facility] - Endocr[facility]ology [address] [place] [phone] Yosi Bustamante MD [address] [place] [address] 2L [place] [address] 07/26/2024 10:00 AM INDUCTION MACHINE OPERATOR [facility]ointment [facility] [address] [place] [address] Neri Delgado MD [address] [place] [address] 07/26/2024 10:00 AM INDUCTION MACHINE OPERATOR Office Visit [facility] - ENT [address] [place] [phone] Myra Farmer, DIE SET UP WORKER [address] [place] [address] 2L [place] [address] 07/26/2024 11:15 AM INDUCTION MACHINE OPERATOR [facility] [address] [place] [phone] Neri Delgado MD [address] [place] [address] 08/02/2024 2:20 PM INDUCTION MACHINE OPERATOR Appointment [facility] [address] [place] [address] 08/02/2024 3:00 PM INDUCTION MACHINE OPERATOR Office Visit [facility] - Hematology/Oncology [address] [place] [phone] Remi Beckett MD [address] [place] [address] 08/18/2024 1:45 PM INDUCTION MACHINE OPERATOR Office Visit [facility] - ENT [address] [place] [phone] Neri Delgado MD [address] [place] [address] documented as of this encounter Visit Diagnoses Diagnosis Postoperative hypothyroidism Postsurgical hypothyroidism Thyroid cancer (HCC) Malignant neoplasm of thyroid gland Hypocalcemia Other hypoparathyroidism (HCC) documented in this encounter Care Teams Thread Grinder Relationship Specialty Start Date End Date Taniya Grimes MD [address] [place] [address] 2L DIV OF [facility] [place] [phone] PCP - General 07/01/20 05/10/22 Marylu Marie DO [address] [place] [address] 2L DIV OF [facility] [place] [address] Resident - PCP Student Resident 06/26/20 01/11/22 documented as of this encounter
--- OUTSIDE RECORDS SUMMARY | 2024-07-23 07:18 | XMS_ITS | Encounter Summary ---
Author Organization [facility] Health Address [address] [place] [address] Care Team Providers Care Slunk Skin Curer Name Role Phone Marylu Marie DO Unavailable Taniya Grimes MD Primary Care Provider [phone] Reason for Visit * Reason Onset Date Comments MEDICATION REFILL 07/22/2021 Encounter Details Date Type Department Care Team (Late st Contact Info) Description 07/22/2021 Refill [facility] General Internal Medicine [address] [place] [address], [place] [address] Marylu Marie DO [address] [place] [address] OF [facility] [place] [address] MEDICATION REFILL Social History Tobacco Use Types [...] Telephone Encounter - Mellisa Vargas LPN - 07/22/2021 2:19 PM MOVING CONSULTANT Refill Request Brisa Hogan ELE: 05.22.21 NOV scheduled: 10/29/2021 LRF: 09.13.20 Qty Disp: 30 # of refills: 11 Allergies: Allergies Allergen Reactions ??? Kiwi Extract Anaphylaxis Pended Medication Order: Requested Prescriptions Pending Prescriptions Disp Refills ??? atorvastatin (LIPITOR) 40 MG tablet 30 tablet 3 Sig: TAKE 1 TABLET BY MOUTH EVERYDAY AT BEDTIME NG CONSULTANT documented in this encounter Plan of Treatment Upcoming Encounters Date Type Department Care Team (Late st Contact Info) Description 07/25/2024 10:00 AM MOVING CONSULTANT Office Visit [facility] - Endocrinology [address] [place] [phone] Yosi Bustamante MD [address] [place] [address] 2L Div [place] [address] 07/26/2024 10:00 AM MOVING CONSULTANT Appointment [facility] [address] [place] [phone] Neri Delgado MD [address] [place] [address] 07/26/2024 10:00 AM MOVING CONSULTANT Office Visit [facility] - ENT [address] [place] [phone] Myra Farmer, CASINO BEVERAGE SERVER [address] [place] [address] 2L [place] [phone] 07/26/2024 11:15 AM MOVING CONSULTANT Office Visit [facility] - ENT [address] [place] [phone] Neri Delgado MD [address] [place] [address] 08/02/2024 2:20 PM MOVING CONSULTANT Appointment [facility] [address] [place] [address] 08/02/2024 3:00 PM MOVING CONSULTANT Office Visit [facility] - Hematology/Oncology [address] [place] [phone] Remi Beckett MD [address] [place] [phone] 08/18/2024 1:45 PM MOVING CONSULTANT Office Visit [facility] - ENT [address] [place] [phone] Neri Delgado MD [address] [place] [address] documented as of this encounter Visit Diagnoses Diagnosis Hyperlipidemia, unspecified hyperlipidemia type documented in this encounter Care Teams Slunk Skin Curer Relationship Specialty Start Date End Date Taniya Grimes MD [address] [place] [address] 2L DIV OF [facility] [place] [address] PCP - General 07/01/20 05/10/22 Marylu Marie DO [address] [place] [address] 2L DIV OF [facility] [place] [address] Resident - PCP Student Resident 06/26/20 01/11/22 documented as of this encounter
--- OUTSIDE RECORDS SUMMARY | 2024-07-23 07:18 | XMS_ITS | Encounter Summary ---
Author Organization [facility] Health Address [address] [facility] [place] [address] Care Team Providers Care Homeworker Name Role Phone Marylu Marie DO Unavailable [phone] Taniya Grimes MD Primary Care Provider Reason for Visit * Reason Comments Refill Request Encounter Details Date Type Department Care Team (Late st Contact Info) Description 10/04/2021 Refill [facility] General Internal Medicine [address] [facility], [facility] [place] [address] Alex Smith MD [address] [place] [address] Refill Request Social History Tobacco Use Types [...] Telephone Encounter - Jessica Kenyon RN - 10/06/2021 10:13 AM CDT Refill Request Brisa Hogan ELE: 05/22/21 NOV scheduled: 10/29/21 LRF: 03/25/21 Qty Disp: 90 # of refills: 5 Allergies: Allergies Allergen Reactions ??? Kiwi Extract Anaphylaxis Pended Medication Order: Requested Prescriptions Pending Prescriptions Disp Refills ??? gabapentin (NEURONTIN) 300 MG capsule [Pharmacy Med Name: GABAPENTIN 300 MG CAPSULE] 90 capsule5 Sig: TAKE 1 CAPSULE BY MOUTH THREE TIMES A DAY documented in this encounter Plan of Treatment Upcoming Encounters Date Type Department Care Team (Late st Contact Info) Description 07/25/2024 10:[address] Office Visit [facility] - Endocrinology [address] [place] [phone] Yosi Bustamante MD [address] [place] [address] 2L [place] [address] 07/26/2024 10:[address] Appointment [facility] [address] [place] [phone] Neri Delgado MD [address] [place] [address] 07/26/2024 10:[address] Office Visit [facility] - ENT [address] [place] [phone] Myra Farmer, SUGAR CANE PLANTING EQUIPMENT OPERATOR [address] [place] [address] 2L [place] [address] 07/26/2024 11:[address] MAN Office Visit [facility] - ENT [address] [place] [phone] Neri Delgado MD [address] [place] [address] 08/02/2024 2:[address] MAN Appointment [facility] [address] [place] [address] 08/02/2024 3:[address] Office Visit [facility] - Hematology/Oncology [address] [place] [phone] Remi Beckett MD [address] [place] [phone] 08/18/2024 1:[address] MAN Office Visit [facility] - ENT [address] [place] [phone] Neri Delgado MD [address] [place] [address] documented as of this encounter Visit Diagnoses Diagnosis Primary osteoarthritis of left hip Primary localized osteoarthrosis, pelvic region and thigh documented in this encounter Care Teams Homeworker Relationship Specialty Start Date End Date Taniya Grimes MD [address] [place] [address] 2L DIV [place] [address] PCP - General 07/01/20 05/10/22 Marylu Marie DO [address] [place] [address] 2L DIV [place] [address] Resident - PCP Student Resident 06/26/20 01/11/22 documented as of this encounter
--- OUTSIDE RECORDS SUMMARY | 2024-07-23 07:18 | XMS_ITS | Encounter Summary ---
Author Organization [facility] Health Address [address] [facility] [place] [address] Care Team Providers Care Heating Mechanic Name Role Phone Marylu Marie DO Unavailable [phone] Taniya Grimes MD Primary Care Provider Reason for Visit * Reason Onset Date Comments Pain Hip 09/29/2021 Encounter Details Date Type Department Care Team (Late st Contact Info) Description 09/29/2021 Telephone [facility] General Internal Medicine [address] [place] [address], [place] [address] Taniya Grimes MD [address] [place] [address] OF [facility] [place] [address] Pain Hip Social History Tobacco Use Types Packs/Day Years [...] Telephone Encounter - Zachary Hendricks RN - 09/29/2021 1:45 PM CDT Pt called d/t having bone on bone to her L hip. Stated she cannot have surgery until she's cancer free. Stated she did a drug screen, has been seen by Ortho and is hoping pain medication can be called orthis concern. Please advise. CB#[phone] documented in this encounter Plan of Treatment Upcoming Encounters Date Type Department Care Team (Late st Contact Info) Description 07/25/2024 10:00 AM C 13 CATAPULT OPERATOR Office Visit [facility] - Endocrinology [address] [place] [phone] Yosi Bustamante MD [address] [place] [address] 2L [place] [address] 07/26/2024 10:00 AM C 13 CATAPULT OPERATOR Appointment [facility] [address] [place] [address] Neri Delgado MD [address] [place] [address] 07/26/2024 10:00 AM C 13 CATAPULT OPERATOR Office Visit [facility] - ENT [address] [place] [phone] Myra Farmer, ZAIN [address] [place] [address] 2L [place] [address] 07/26/2024 11:15 AM C 13 CATAPULT OPERATOR Office Visit [facility] - ENT [address] [place] [address], [place] [phone] Neri Delgado MD [address] [place] [address] 08/02/2024 2:20 PM C 13 CATAPULT OPERATOR Appointment [facility] 365[address] [place] [address] 08/02/2024 3:00 PM C 13 CATAPULT OPERATOR Office Visit [facility] - Hematology/Oncology [address] [place] [phone] Remi Beckett MD [address] [place] [phone] 08/18/2024 1:45 PM C 13 CATAPULT OPERATOR Office Visit [facility] - ENT [address] [place] [phone] Neri Delgado MD [facility] [place] [address] documented as of this encounter Visit Diagnoses Not on filedocumented in this encounter Care Teams Heating Mechanic Relationship Specialty Start Date End Date Taniya Grimes MD [address] [place] [address] 2L DIV OF [facility] [place] [address] PCP - General 07/01/20 05/10/22 Marylu Marie DO [address] [place] [address] 2L DIV OF [facility] [place] [address] Resident - PCP Student Resident 06/26/20 01/11/22 documented as of this encounter
--- OUTSIDE RECORDS SUMMARY | 2024-07-23 07:18 | XMS_ITS | Encounter Summary ---
Author Organization [facility] Health Address [address] [facility] [place] [address] Care Team Providers Care Aquatics Coordinator Name Role Phone Marylu Marie DO Unavailable Taniya Grimes MD Primary Care Provider Reason for Visit * Reason Onset Date Comments MEDICATION REFILL 05/08/2021 Encounter Details Date Type Department Care Team (Late st Contact Info) Description 05/08/2021 Refill [facility] Internal Medicine [address] [place] [address], [facility] [place] [phone] Taniya Grimes MD [address] [place] [address] [place] [address] MEDICATION REFILL Social History Tobacco [...] Miscellaneous Notes * Telephone Encounter - Jessica Kenyon, RN - 05/08/2021 9:35 AM CDT MEDICATION FILLED PER PROTOCOL Disposition of prescription: e-prescribed to preferred pharmacy Response to patient: None necessary documented in this encounter Plan of Treatment Upcoming Encounters Date Type Department Care Team (Late st Contact Info) Description 07/25/2024 10:00 AM GROUND PRODUCTS DIRECTOR Office Visit [facility] - Endocrinology [address] [place] [phone] Yosi Bustamante MD [address] [place] [address] 2L [place] [address] 07/26/2024 10:00 AM GROUND PRODUCTS DIRECTOR Appointment [facility] [address] [place] [address] Neri Delgado MD [address] [place] [address] 07/26/2024 10:00 AM GROUND PRODUCTS DIRECTOR Office Visit [facility] - ENT [address] [place] [phone] Myra Farmer, TRIM OPERATOR [address] [place] [address] 2L [place] [address] 07/26/2024 11:15 AM GROUND PRODUCTS DIRECTOR Office Visit [facility] - ENT [address] [place] [phone] Neri Delgado MD [address] [place] [address] 08/02/2024 2:20 PM GROUND PRODUCTS DIRECTOR Appointment [facility] [address] [place] [address] 08/02/2024 3:00 PM GROUND PRODUCTS DIRECTOR Office Visit [facility] - Hematology/Oncology [address] [place] [phone] Remi Beckett MD [address] [place] [phone] 08/18/2024 1:45 PM GROUND PRODUCTS DIRECTOR Office Visit [facility] - ENT [address] [place] [address] Neri Delgado MD [address] [place] [address] documented as of this encounter Visit Diagnoses Not on filedocumented in this encounter Care Teams Aquatics Coordinator Relationship Specialty Start Date End Date Taniya Grimes MD [address] [place] [address] 2L DIV OF [facility] [place] [address] PCP - General 07/01/20 05/10/22 Marylu Marie DO [address] [place] [address] 2L DIV OF [facility] [place] [address] Resident - PCP Student Resident 06/26/20 01/11/22 documented as of this encounter
--- OUTSIDE RECORDS SUMMARY | 2024-07-23 07:18 | XMS_ITS | Encounter Summary ---
Author Organization [facility] Health Address [address] [facility] [place] [address] Care Team Providers Care Shipyard Painter Apprentice Name Role Phone Marylu Marie DO Unavailable [phone] Taniya Grimes MD Primary Care Provider Encounter Details Date Type Department Care Team (Latest Contact Info) Description 05/02/2021 Orders Only [facility] Endocrinology, Diabetes and Metabolism [address] [place] [address], [facility] [place] [phone] Yosi Bustamante MD [address] [place] [address] of Endocrinology [place], [place] [phone] Postoperative hypothyroidism; Thyroid cancer (HCC); Hypocalcemia; Other [...] st Contact Info) Description 07/25/2024 10:00 AM MINI SHIFTER Office Visit [facility] - Endocrinology [address] [place] [phone] Yosi Bustamante MD [address] [place] [address] 2L [place] [address] 07/26/2024 10:00 AM MINI SHIFTER Appointment [facility] DI[facility]NO[facility] RAD [address] [place] [phone] Neri Delgado MD [address] [place] [address] 07/26/2024 10:00 AM MINI SHIFTER Office Visit [facility] - ENT [address] [place] [phone] Myra Farmer, PANELBEATER [address] [place] [address] 2L [place] [phone] 07/26/2024 11:15 AM MINI SHIFTER Office Visit [facility] - ENT [address] [place] [phone] Neri Delgado MD [address] [place] [address] 08/02/2024 2:20 PM MINI SHIFTER Appointment [facility] [address] [place] [address] 08/02/2024 3:00 PM MINI SHIFTER Office Visit [facility] - Hematology/Oncology [address] [place] [phone] Remi Beckett MD [address] [place] [phone] 08/18/2024 1:45 PM MINI SHIFTER Office Visit [facility] - ENT [address] [place] [phone] Neri Delgado MD [address] [place] [address] documented as of this encounter Visit Diagnoses Diagnosis Postoperative hypothyroidism Postsurgical hypothyroidism Thyroid cancer (HCC) Malignant neoplasm of thyroid gland Hypocalcemia Other hypoparathyroidism (HCC) documented in this encounter Care Teams Shipyard Painter Apprentice Relationship Specialty Start Date End Date Taniya Grimes MD [address] [place] [address] 2L DIV OF [facility] [place] [address] PCP - General 07/01/20 05/10/22 Marylu Marie DO [address] [place] [address] 2L DIV OF [facility] [place] [address] Resident - PCP Student Resident 06/26/20 01/11/22 documented as of this encounter
--- OUTSIDE RECORDS SUMMARY | 2024-07-23 07:18 | XMS_ITS | Encounter Summary ---
Author Organization [facility] Health Address [address] [facility] [address] Care Team Providers Care Fisher Trawl Line Name Role Phone Marylu Marie DO Unavailable Taniya Grimes MD Primary Care Provider Reason for Visit * Reason Onset Date Comments Results 04/08/2021 Encounter Details Date Type Department Care Team (Late st Contact Info) Description 04/08/2021 Telephone [facility] Endocrinology, Diabetes and Metabolism [address] [place] [address], [place] [phone] Yosi Fox MD [address] [place] [address] of [place], [place] [phone] Results Social History Tobacco Use Types Packs/Day [...] Miscellaneous Notes * Telephone Encounter - Yosi Fox MD - 04/17/2021 2:29 PM CDT CALLED PATIENT AND DISCUSSED NUC MED RESULTS AND LAB RESULTS AND FOLLOW UP HAS APPT IN JUN FOR WILL SCHEDULE REPEAT THYROGEN STUDY IN SPRING 2021 WILL FOLLOW LABS EVERY THREE MONTHS FOR TG AND TSH WILL DO NECK US EVERY 12 MONTHS OFFICE VISITS EVERY THREE TO SIX MONTHS YOSI FOX MD * Telephone Encounter - Jane Abdi RN - 04/08/2021 3:42 PM CDT Pt LM on RN VM requesting Dr. Fox all her back regarding [facility]BS results. States she received the letter but does not understand it and would like to speak with him directly. CB: [phone] documented in this encounter Plan of Treatment Upcoming Encounters Date Type Department Care Team (Late st Contact Info) Description 07/25/2024 10:00 AM MIXER AND SCALER Office Visit [facility] Group - Endocrinology [facility]5 [place] [phone] Yosi Fox MD [address] [place] [address] [place] [address] 07/26/2024 10:00 AM MIXER AND SCALER Appointment [facility] RAD [address] [place] [address] Neri Delgado MD [address] [place] [address] 07/26/2024 10:00 AM MIXER AND SCALER Office Visit [facility] - ENT [address] [place] [phone] Myra Farmer, LUBRICATOR GRANULATOR [address] [place] [address] 2L [place] [address] 07/26/2024 11:15 AM MIXER AND SCALER Office Visit [facility] - ENT [address] [place] [phone] Neri Delgado MD [address] [place] [address] 08/02/2024 2:20 PM MIXER AND SCALER Appointment [facility] [address] [place] [address] 08/02/2024 3:00 PM MIXER AND SCALER Office Visit [facility] Physician Group - Hematology/Oncology [address] [place] [phone] Remi Beckett MD [address] [place] [phone] 08/18/2024 1:45 PM MIXER AND SCALER Office Visit [facility] Physician Group - ENT [address] [place] [phone] Neri Delgado MD [address] [place] [address] documented as of this encounter Visit Diagnoses Not on filedocumented in this encounter Care Teams Fisher Trawl Line Relationship Specialty Start Date End Date Taniya Grimes MD [address] [place] [address] 2L DIV [place] [address] PCP - General 07/01/20 05/10/22 Marylu Marie DO [address] [place] [address] Resident - PCP Student Resident 06/26/20 01/11/22 documented as of this encounter
--- OUTSIDE RECORDS SUMMARY | 2024-07-23 07:18 | XMS_ITS | Encounter Summary ---
Author Organization [facility] Health Address [address] [place] [address] Care Team Providers Care Carry Out Clerk Name Role Phone Marylu Marie DO Unavailable [phone] Taniya Grimes MD Primary Care Provider Reason for Visit * Reason Comments Physical Encounter Details Date Type Department Care Team (Late st Contact Info) Description 05/22/2021 2:30 PM DIRECTOR OF MARKET ANALYSIS Office Visit [facility] Medicine [address] [place] [address], [place] [address] Marylu Marie DO [address] [place] [address] 2L [facility] INTERNAL [place] [address] Primary osteoarthritis of left hip (Primary Dx); Screening for colon cancer; Cigarette nicotine dependence without complication; Vaccine counseling Social History Tobacco Use Types Packs/Day Years [...] Sign Reading Time Taken Comments Blood Pressure 138/82 05/22/2021 2:42 PM DIRECTOR OF MARKET ANALYSIS Pulse 76 05/22/2021 2:42 PM DIRECTOR OF MARKET ANALYSIS Temperature 36.2 ??C (97.1 ??F) 05/22/2021 2:42 PM CS T Respiratory Rate - - Oxygen Saturation 94% 05/22/2021 2:42 PM DIRECTOR OF MARKET ANALYSIS Inhaled Oxygen Concentration - - Weight 65.8 kg (145 lb) 05/22/2021 2:42 PM DIRECTOR OF MARKET ANALYSIS Height 157.5 cm (5' 2) 05/22/2021 2:42 PM DIRECTOR OF MARKET ANALYSIS Body Mass Index 26.52 05/22/2021 2:42 PM DIRECTOR OF MARKET ANALYSIS documented in this encounter Functional Status Functional [...] this encounter Patient Instructions * Patient Instructions* Charly Desai - 05/22/2021 2:50 PM DIRECTOR OF MARKET ANALYSIS [facility] General Internal Medicine is committed to providing you with the best care possible. We areworking towards becoming a Patient Centered Medical Home (PCMH), a model of care that puts patientsat the forefront of care. PCM Centers build better relationships between patients and their clinical care teams. Practices that earn recognition have made a commitment to continuous quality improvement and a patient-centered approach to care. Shared decision making is a perez component of patient-centered health care. It is a process in whichclinicians and patients work together to make decisions based on clinical evidence that balances risk and expected outcomes with patient preferences and values. How to Contact Us Between Office Visits For scheduling routine appointments, requesting refills or leaving a message for your doctor, the office phone is [phone]. You will be given options to get [...] primary care provider. Please call us at [phone], option 1, then option 1 in the morning you would like to be seen. Our fax number is [phone]. Instructions for reaching the practice after office hours For urgent concerns that cannot wait until phone lines are open on the next business day, please call [phone] to speak to the covering General Internal Medicine provider. Identify yourself as a patient in our practice and give the magnaflux operator your doctor's name. The magnaflux operator will contact the physician public relations studies director. You can generally expect a return call within 30 minutes. Prescription Refills Contact your pharmacy to request all refills. You may also send a [email or web address] message for refills. Please allow a minimum of 48-72 hours for your prescription to be completed. Your pharmacy will notify you when your prescription is ready to be picked up. SCHEDULE YOUR OWN APPOINTMENT AT [facility] We are excited to announce that some [facility] appointments can now be scheduled online. If you are not able to access the type of appointment that you need using this service, our [facility] Scheduling department will be happy to continue to serve you. Use one of these options to schedule your next appointment today: ??? Access self-scheduling options by visiting the [facility] Online Scheduling Webpage. ??? Make an appointment by calling [facility] Central [phone] Visit our website at [email or web address] for information about our practice and an interactive health encyclopedia. CTOR OF MARKET ANALYSIS documented in this encounter Progress Notes * Marylu Marie DO - 05/22/2021 2:44 PM CST [facility] General Internal Medicine Established Patient Note CC: Chief Complaint Patient presents with ??? Physical Assessment & Plan: 1. Primary osteoarthritis of left hip Severe osteoarthritis of L hip. Following with orthopedics. Adjust tylenol dosing to 1000mg q8h, increase gabapentin to 300mg TID. Can take 300-600mg gabapentin at night. Will monitor pain level. If no improvement on new regimen in two weeks. Add PRN tramadol 50mg at night. 2. Screening for colon cancer - Screening Colonoscopy; Future 3. Cigarette nicotine dependence without complication Advised cessation. 4. Vaccine counseling Plans to obtain flu and COVID-19 booster at pharmacy. Discussed zoster vaccination as well. Questions answered. Preventative Care/Health Maintenance: Immunizations - COVID19: 09/2020, 10/2020 - Influenza: due, will obtain from pharmacy - Tdap: 02/2016 - PPSV23: 06/2018 - Zoster: discussed Colorectal cancer screening: ordered HIV, Hep C: nonreactive 03/2020 Cardiovascular prevention: lipids WNL 03/2020, diabetes screening 5.5 03/2020, tobacco use advised cessation Female specific preventative care: Cervical cancer screenin11/2019, negative Breast ca screening: follows with outside physician Patient discussed with attending physician, Dr. Grimes, who agrees with my assessment and plan. Return in about 5 months (around 10/20/2021). History of Present Illness: Brisa Hogan is a 60 year old female with PMH of severe osteoarthritis, depression, tobacco usedisorder, and metastatic thyroid cancer s/p resection and radioactive ablation presenting to GI clinic for routine followup . No recent hospitalizations or illnesses. Was diagnosed with UTI in 02/2021 and admitted to [facility] for 5 days. Presented with AMS. Calcium supplementation discontinued. Following with Dr. Colon of psychiatry and counselor Kirti. Mood does fluctuate but notes that she is staying strong for family. Caregiver to who has sever COPD. Insomnia is due to leg pain. Taking 1500mg tylenol BID and gabapentin 300mg BID. Worsening of depression usually in the winter. Down to 5 cigarettes daily. Motivated to quick in order to have orthopedic surgery. Follows with Dr. Bustamante. Undergoing radioactive ablation. Down to 5 cigarettes daily Past Medical/Surgical/Family/Social History: Reviewed and updated in [facility] History tab Medications: Reviewed and updated in [facility] Medications tab Current Outpatient Medications Medication Sig Dispense Refill ??? acetaminophen (TYLENOL) 500 MG tablet Take 1,000 mg by mouth every 8 hours as needed ??? atorvastatin (LIPITOR) 40 MG tablet TAKE 1 TABLET BY MOUTH EVERYDAY AT BEDTIME 30 tablet 11 ??? clonazePAM (KLONOPIN) 0.5 MG tablet Take 3 (three) tablets by mouth once daily ??? famotidine (PEPCID) 20 MG tablet Take 20 mg by mouth 2 times daily as needed ??? fluticasone propionate (FLONASE) 50 MCG/ACT nasal spray [place] 2 (two) sprays into each nostril once daily 16 g 0 ??? gabapentin (NEURONTIN) 300 MG capsule TAKE 1 CAPSULE BY MOUTH THREE TIMES A DAY 90 capsule 5 ??? OHSXKJ-ODFFFKRJX-SLM-C-HYAL PO Take 1 tablet by mouth 3 times daily ??? levothyroxine (SYNTHROID) 112 MCG tablet Take 1 (one) tablet by mouth once daily 90 tablet 4 ??? Misc Natural Products (NEURIVA PO) Take 2 capsules by mouth every morning ??? pantoprazole EC (PROTONIX) 40 MG tablet TAKE 1 TABLET BY MOUTH DAILY FOR STOMACH 30 tablet 3 ??? PARoxetine (PAXIL) 40 MG tablet (Patient taking differently: Take 40 mg by mouth once daily ) 2 ??? thyrotropin tayo (THYROGEN) injection Inject [...] Review of Systems: Review of Systems Constitutional: Positive for malaise/fatigue. Negative for chills and fever. HENT: Negative for congestion and sore throat. Respiratory: Negative for shortness of breath and wheezing. Cardiovascular: Negative for chest pain, palpitations and leg swelling. Gastrointestinal: Negative for abdominal pain, constipation and diarrhea. Genitourinary: Negative for dysuria. Musculoskeletal: Positive for joint pain. Negative for falls. Psychiatric/Behavioral: Positive for depression. Negative for suicidal ideas. Physical Exam: BP 138/82 Pulse 76 Temp 97.1 ??F (36.2 ??C) (Skin) Ht 5' 2 (1.575 m) Wt 145 lb (65.8 kg) SpO2 94% BMI 26.52 kg/m2 Physical Exam Constitutional: General: She is not in acute distress. HENT: Head: Normocephalic and atraumatic. Mouth/Throat: Mouth: Mucous membranes are moist. Pharynx: No posterior oropharyngeal erythema. Neck: Comments: Well healed scar present Cardiovascular: Rate and Rhythm: Normal rate and regular rhythm. Heart sounds: No murmur heard. Pulmonary: Effort: Pulmonary effort is normal. Breath sounds: Normal breath sounds. No wheezing. Abdominal: General: Bowel sounds are normal. Palpations: Abdomen is soft. Musculoskeletal: Cervical back: Neck supple. Comments: Slow gate, ambulates to exam table with cane, has walker for ambulation as well Lymphadenopathy: Cervical: No cervical adenopathy. Neurological: Mental Status: She is alert. Sensory: No sensory deficit. Gait: Gait abnormal. Psychiatric: Mood and Affect: Mood normal. Thought Content: Thought content normal. Labs: Personally reviewed. Imaging/Other diagnostic testing: Personally reviewed. Lab Preference: [facility] [address] [facility] [phone] Marylu Garciahbach, DO 05/22/2021 Coding Rationale New or est? Established Patient Highest problem complexity: 1 stable chronic illness Data review: Review of prior external note(s): 2 unique source(s) Review of result(s): 2 unique source(s) Highest level of risk: Moderate Suggested code: 81734 CTOR OF MARKET ANALYSIS Associated attestation - Taniya Grimes MD - 05/22/2021 5:13 PM DIRECTOR OF MARKET ANALYSIS Attending Physician Attestation I saw and examined the patient with the resident, and I agree with the resident's history, physicalexam, and assessment and plan. Date of Service: 05/22/2021 Taniya Grimes MD documented in this encounter Plan of Treatment Upcoming Encounters Date Type Department Care Team (Late st Contact Info) Description 07/25/2024 10:00 AM DIRECTOR OF MARKET ANALYSIS Office Visit [facility] - Endocrinology [address] [place] [address], [place] [phone] Yosi Bustamante MD [address] [place] [address] [place] [address] 07/26/2024 10:00 AM DIRECTOR OF MARKET ANALYSIS Appointment [facility] [address] [place] [address] Neri Delgado MD [address] [place] [address] 07/26/2024 10:00 AM DIRECTOR OF MARKET ANALYSIS Office Visit [facility] - ENT [address] [place] [phone] Myra Farmer, GENETIC SUPERVISOR [address] [place] [address] OF [place] [phone] 07/26/2024 11:15 AM DIRECTOR OF MARKET ANALYSIS Office Visit [facility] - ENT [address] [place] [phone] Neri Delgado MD [address] [place] [address] 08/02/2024 2:20 PM DIRECTOR OF MARKET ANALYSIS Appointment [facility] [address] [place] [address] 08/02/2024 3:00 PM DIRECTOR OF MARKET ANALYSIS Office Visit [facility] - Hematology/Oncology [address] [place] [phone] Remi Beckett MD [address] [place] [phone] 08/18/2024 1:45 PM DIRECTOR OF MARKET ANALYSIS Office Visit [facility] - ENT [address] [place] [phone] Neri Delgado MD [address] [place] [address] documented as of this encounter Visit Diagnoses Diagnosis Primary osteoarthritis of left hip- Primary Primary localized osteoarthrosis, pelvic region and thigh Screening for colon cancer Special screening for malignant neoplasms, colon Cigarette nicotine dependence without complication Tobacco use disorder Vaccine counseling documented in this encounter Care Teams Carry Out Clerk Relationship Specialty Start Date End Date Taniya Grimes MD [address] 2L DIV OF GEN INTERNAL [place] [address] PCP - General 07/01/20 05/10/22 Marylu Marie DO [address] 2L DIV OF [facility] INTERNAL [place] [address] Resident - PCP Student Resident 06/26/20 01/11/22 documented as of this encounter
--- OUTSIDE RECORDS SUMMARY | 2024-07-23 07:18 | XMS_ITS | Encounter Summary ---
Author Organization [facility] Health Address [address] [place] [address] Care Team Providers Care Dry Chain Offbearer Name Role Phone Marylu Marie DO Unavailable [phone] Taniya Grimes MD Primary Care Provider [phone] Encounter Details Date Type Department Care Team (Latest Contact Info) Description 06/27/2021 Orders Only [facility] Endocrinology, Diabetes and Metabolism [address] [place] [address], [facility] [place] [phone] Yosi Bustamante MD [address] [place] [address] of Endocrinology [place], [place] [phone] Postoperative hypothyroidism; Thyroid cancer (HCC); Hypocalcemia; Other [...] Contact Info) Description 07/25/2024 10:00 AM PRODUCTION INTERNSHIP Office [facility] - Endocrinology [address] [place] [phone] Yosi Bustamante MD [address] [place] [address] 2L [place] [address] 07/26/2024 10:00 AM PRODUCTION INTERNSHIP Appointment [facility] [address] [place] [address] Neri Delgado MD [address] [place] [address] 07/26/2024 10:00 AM PRODUCTION INTERNSHIP Office Visit [facility] - ENT [address] [place] [phone] Myra Farmer, CAN FILLING MACHINE OPERATOR [address] [place] [address] 2L [place] [address] 07/26/2024 11:15 AM PRODUCTION INTERNSHIP [facility] [address] [place] [phone] Neri Delgado MD [address] [place] [address] 08/02/2024 2:20 PM PRODUCTION INTERNSHIP Appointment [facility] [address] [place] [address] 08/02/2024 3:00 PM PRODUCTION INTERNSHIP Office Visit [facility] - Hematology/Oncology [address] [place] [phone] Remi Beckett MD [address] [place] [address] 08/18/2024 1:45 PM PRODUCTION INTERNSHIP Office Visit [facility] - ENT [address] [place] [phone] Neri Delgado MD [address] [place] [address] documented as of this encounter Visit Diagnoses Diagnosis Postoperative hypothyroidism Postsurgical hypothyroidism Thyroid cancer (HCC) Malignant neoplasm of thyroid gland Hypocalcemia Other hypoparathyroidism (HCC) documented in this encounter Care Teams Dry Chain Offbearer Relationship Specialty Start Date End Date Taniya Grimes MD [address] [place] [address] 2L DIV OF [facility] [place] [phone] PCP - General 07/01/20 05/10/22 Marylu Marie DO [address] [place] [address] 2L DIV OF [facility] [place] [address] Resident - PCP Student Resident 06/26/20 01/11/22 documented as of this encounter
--- OUTSIDE RECORDS SUMMARY | 2024-07-23 07:18 | XMS_ITS | Encounter Summary ---
Author Organization [facility] Health Address [address] [place] [address] Care Team Providers Care Director Of Product Design Name Role Phone Marylu Marie DO Unavailable [phone] Taniya Grimes MD Primary Care Provider Reason for Visit * Reason Onset Date Comments MEDICATION REFILL 09/08/2021 Encounter Details Date Type Department Care Team (Late st Contact Info) Description 09/08/2021 Refill [facility] General Internal Medicine [address] [place] [address], [place] [address] Taniya Grimes MD [address] [place] [address] [place] [address] MEDICATION REFILL Social History Tobacco [...] Telephone Encounter - Lexii Birch, RN - 09/08/2021 10:20 AM CST Calling for refill of protonix to go to [facility]. Refill Request Brisa Hogan ELE: 05/22/21 NOV scheduled: 10/29/21 LRF: 04/25/21 Qty Disp: 30 # of refills: 3 Allergies: Allergies Allergen Reactions ??? Kiwi Extract Anaphylaxis Pended Medication Order: Requested Prescriptions Pending Prescriptions Disp Refills ??? pantoprazole EC (PROTONIX) 40 MG tablet 30 tablet 3 Sig: TAKE 1 TABLET BY MOUTH DAILY FOR STOMACH LE HAND documented in this encounter Plan of Treatment Upcoming Encounters Date Type Department Care Team (Late st Contact Info) Description 07/25/2024 10:00 AM STABLE HAND Office Visit [facility] - Endocrinology [address] [place] [phone] Yosi Bustamante MD [address] [place] [address] 2L Div [place] [address] 07/26/2024 10:00 AM STABLE HAND Appointment [facility] [address] [place] [phone] Neri Delgado MD [address] [place] [address] 07/26/2024 10:00 AM STABLE HAND Office Visit [facility] - ENT [address] [place] [phone] Myra Farmer, ELECTRIC SIGN WIRER [address] [place] [address] 2L [place] [phone] 07/26/2024 11:15 AM STABLE HAND Office Visit [facility] - ENT [address] [place] [phone] Neri Delgado MD [address] [place] [address] 08/02/2024 2:20 PM STABLE HAND Appointment [facility] [address] [place] [address] 08/02/2024 3:00 PM STABLE HAND Office Visit [facility] - Hematology/Oncology [address] [place] [phone] Remi [place] MD [address] [place] [phone] 08/18/2024 1:45 PM STABLE HAND Office Visit [facility] - ENT [address] [place] [phone] Neri Delgado MD [address] [place] [address] documented as of this encounter Visit Diagnoses Diagnosis Gastroesophageal reflux disease, unspecified whether esophagitis present documented in this encounter Care Teams Director Of Product Design Relationship Specialty Start Date End Date Taniya Grimes MD [address] [place] [address] 2L DIV OF [facility] [place] [address] PCP - General 07/01/20 05/10/22 Marylu Marie DO [address] [place] [address] 2L DIV [place] [address] Resident - PCP Student Resident 06/26/20 01/11/22 documented as of this encounter
--- OUTSIDE RECORDS SUMMARY | 2024-07-23 07:18 | XMS_ITS | Encounter Summary ---
Author Organization [facility] Health Address [address] [facility] [place] [address] Care Team Providers Care Power Generation Equipment Repairer Name Role Phone Marylu Marie DO Unavailable Taniya Grimes MD Primary Care Provider Reason for Visit * Reason Comments Pain Knee LT KNEE Encounter Details Date Type Department Care Team (Latest Contact Info) Description 04/01/2021 11:30 AM CDT Office Visit [facility] - Orthopedics [address] [facility] [place] [address] Cesar Brooks MD [address] [facility] [address] [place], [place] [phone] Primary osteoarthritis of left hip (Primary Dx) Social History Tobacco Use Types [...] - Inhaled Oxygen Concentration - - Weight 66 kg (145 lb 9.6 oz) 04/01/2021 11:57 AM CDT Height 157.5 cm (5' 2) 04/01/2021 11:57 AM CDT Body Mass Index 26.63 04/01/2021 11:57 AM CDT documented in this encounter Functional [...] as of this encounter Progress Notes * Cesar Brooks MD - 04/01/2021 12:29 PM CDT Patient returns for follow-up of her left hip and left knee pain. She is wondering if they are related. She continues to smoke about 5 cigarettes a day. She is waiting to hear whether or not she has to do any further treatment for her cancer. She states her hip pain radiates all the way down to themedial aspect of her knee. She denies any falls or other injuries. She ambulates with a walker. Current Outpatient Medications on File Prior to Visit Medication Sig Dispense Refill ??? acetaminophen (TYLENOL) 500 MG tablet Take 1,000 mg by mouth every 8 hours as needed ??? atorvastatin (LIPITOR) 40 MG tablet TAKE 1 TABLET BY MOUTH EVERYDAY AT BEDTIME 30 tablet 11 ??? B Complex Vitamins (VITAMIN B COMPLEX PO) Take 1 Each by mouth once daily ??? calcitriol (ROCALTROL) 0.5 MCG capsule Take 1 (one) capsule by mouth 2 times daily Reasons: LowAmount of Calcium in the Blood (Patient not taking: Reported on 01/13/2021) 60 capsule 11 ??? clonazePAM (KLONOPIN) 0.5 MG tablet Take 0.5 mg by mouth 2 times daily ??? famotidine (PEPCID) 20 MG tablet Take 20 mg by mouth 2 times daily as needed ??? fluticasone propionate (FLONASE) 50 MCG/ACT nasal spray [place] 2 sprays into each nostril 16 g 0 ??? gabapentin (NEURONTIN) 300 MG capsule TAKE 1 CAPSULE BY MOUTH THREE TIMES A DAY 90 capsule 5 ??? NMZAOE-GVFZWSKTA-MBX-C-HYAL PO Take 1 tablet by mouth 3 times daily ??? levothyroxine (SYNTHROID) 112 MCG tablet Take 1 (one) tablet by mouth once daily 90 tablet 4 ??? Misc Natural Products (NEURIVA PO) Take 2 capsules by mouth every morning ??? [place]-3 Fatty Acids (FISH OIL) 1000 MG capsule Take 1,000 mg by mouth 3 times daily with meals. ??? pantoprazole EC (PROTONIX) 40 MG tablet TAKE 1 TABLET BY MOUTH DAILY FOR STOMACH 30 tablet 5 ??? PARoxetine (PAXIL) 40 MG tablet (Patient [...] facility-administered medications on file prior to visit. Past Medical History: Diagnosis Date ??? Anxiety [...] WITH BIOPSY ??? Polypectomy cervical Social History Occupational History ??? Not on file Tobacco Use ??? Smoking status: Light Tobacco Smoker Packs/day: 0.25 Years: 40.00 Pack years: 10.00 Types: Cigarettes Start date: 07/22/1973 ??? Smokeless tobacco: Never Used ??? Tobacco comment: 3-4 cig a day Vaping Use ??? Vaping Use: Never used Substance and Sexual Activity ??? Alcohol use: No ??? Drug use: Not Currently Types: Cocaine, Marijuana Comment: marijuana occasionally, last used 07/31/20, cocaine ??? Sexual activity: Yes Partners: Male Family History Problem Relation Name Age of [...] ??? Thyroid Disease Neg Hx Review of Systems Constitutional: Negative for chills, fever, malaise/fatigue and weight loss. Respiratory: Negative for shortness of breath. Cardiovascular: Negative for claudication and leg swelling. Musculoskeletal: Positive for joint pain. Negative for falls. Skin: Negative for itching and rash. Neurological: Negative for focal weakness. All other systems reviewed and are negative. Physical exam: Patient is awake alert Facial expressions are appropriate with the mask in place Patient is cooperative with the examination She ambulates with a walker Examination of the right hip reveals very limited range of motion with flexion to 80, abduction 10,abduction neutral, internal rotation of neutral, external rotation of 10. Distally she can dorsiflex and plantarflex her ankle and toes without difficulty. Examination of the left knee reveals intactskin without signs of infection. She has full extension with no extension lag and she can flex [id number] degrees. There is no crepitus with range of motion. X-rays: AP pelvis and AP and lateral of the left hip reveals severe osteoarthritis of the left hip with joint space obliteration, sclerosis, and osteophyte formation 4 views of the left knee reveals no significant osteoarthritis Assessment: Severe osteoarthritis left hip with right knee pain likely referred from the hip Plan: We discussed that her pain is likely being radiated from her left hip. Risks and benefits of surgery were discussed again at length today. We will see her back once she is off all nicotine for a month. Patient understood the treatment plan and all questions were answered. documented in this encounter Plan of Treatment Upcoming Encounters Date Type Department Care Team (Late st Contact Info) Description 07/25/2024 10:00 AM CLASSIFICATION COUNSELOR Office Visit [facility] - Endocrinology [address] [place] [phone] Yosi Bustamante MD [address] [place] [address] 2L [place] [address] 07/26/2024 10:00 AM CLASSIFICATION COUNSELOR Appointment [facility] DIAGNOSTIC RAD [address] [place] [address] Neri Delgado MD [address] [place] [address] 07/26/2024 10:00 AM CLASSIFICATION COUNSELOR Office Visit [facility] - ENT [address] [place] [phone] Myra Farmer, VALUE ADVISOR [address] [place] [address] 2L [place] [phone] 07/26/2024 11:15 AM CLASSIFICATION COUNSELOR Office Visit [facility] - ENT [address] [place] [phone] Neri Delgado MD [address] [place] [address] 08/02/2024 2:20 PM CLASSIFICATION COUNSELOR Appointment [facility] [address] [place] [address] 08/02/2024 3:00 PM CLASSIFICATION COUNSELOR Office Visit [facility] - Hematology/Oncology [address] [place] [phone] Remi Beckett MD [address] [place] [phone] 08/18/2024 1:45 PM CLASSIFICATION COUNSELOR Office Visit [facility] - ENT [address] [place] [phone] Neri Delgado MD [address] [place] [address] documented as of this encounter Visit Diagnoses Diagnosis Primary osteoarthritis of left hip- Primary Primary localized osteoarthrosis, pelvic region and thigh documented in this encounter Care Teams Power Generation Equipment Repairer Relationship Specialty Start Date End Date Taniya Grimes MD [address] [place] [address] 2L DIV OF [facility] [place] [address] PCP - General 07/01/20 05/10/22 Marylu Marie DO [address] [place] [address] 2L DIV OF [facility] [place] [address] Resident - PCP Student Resident 06/26/20 01/11/22 documented as of this encounter
--- OUTSIDE RECORDS SUMMARY | 2024-07-23 07:19 | XMS_ITS | Encounter Summary ---
Author Organization [facility] Health Address [address] [facility] [place] [address] Care Team Providers Care Motor Lodge Clerk Name Role Phone Marylu Marie DO Unavailable Taniya Grimes MD Primary Care Provider Reason for Referral * Radiology Services (Routine) - Closed Specialty Diagnoses / Procedures Referred By Yuan robins Referred To Contact Nuclear Medicine Diagnoses Thyroid cancer (HCC) Postoperative hypothyroidism Procedures NM THYROID WHOLE BODY SCAN Yosi Bustamante MD [address] [place] [address] [address] [place] [address] [facility] Nuclear Medicine [address] [place] [phone] Referral ID Status Reason Start Date Expiration Date Visits Re quested Visits Authorized [id number] Closed 03/03/2021 03/03/2022 1 1 Reason for Visit * Radiology Services (Routine) - Closed Specialty Diagnoses / Procedures Referred By Contricardo robins Referred To Contact Nuclear Medicine Diagnoses Thyroid cancer (HCC) Postoperative hypothyroidism Procedures NM THYROID WHOLE BODY SCAN Yosi Bustamante MD [address] [place] [address] [address] [place] [address] [facility] Nuclear Medicine [address] [place] [phone] Referral ID Status Reason Start Date Expiration Date Visits Re quested Visits Authorized [id number] Closed 03/03/2021 03/03/2022 1 1 Encounter Details Date Type Department Care Team (Latest Contact Info) Description 03/24/2021 12:30 PM CDT - 03/24/2021 11:59 PM CDT Hospital Encounter [facility] NUCLEAR MEDICINE [address] [place] [address] Yosi Bustamante MD [address] [facility] 2[address] [facility] [place] [address] Discharge Disposition: Home or Self Care Social [...] MOUTH EVERYDAY AT BEDTIME 30 tablet 11 09/13/2020 07/22/2021 B Complex Vitamins (VITAMIN B COMPLEX PO) Take 1 Each by mouth once daily 05/22/2021 calcitriol (ROCALTROL) 0.5 MCG capsuleIndications:Hypoc alcemia Take 1 (one) capsule by mouth 2 times daily Reasons: Low Amount of Calcium in the Blood 60 capsule 11 11/06/2020 05/22/2021 clonazePAM (KLONOPIN) 0.5 MG tablet Take 0.5 mg by mouth 2 times daily 03/29/2019 05/22/2021 fluticasone propionate (FLONASE) 50 MCG/ACT nasal spray [place] 2 sprays into each nostril 16 g 09/06/2019 04/11/2021 gabapentin (NEURONTIN) 300 MG capsuleIndications:Prima ry osteoarthritis of left hip TAKE 1 CAPSULE BY MOUTH THREE TIMES A DAY 90 capsule 5 03/25/2021 10/08/2021 gabapentin (NEURONTIN) 300 MG capsuleIndications:Prima ry osteoarthritis of left hip TAKE 1 CAPSULE BY MOUTH THREE TIMES A DAY 90 capsule 5 09/11/2020 03/25/2021 JOLZVX-PLEHGJSFV-ZVZ-C-H YAL PO Take 1 tablet by mouth 3 times daily 06/13/2023 levothyroxine (SYNTHROID) 112 MCG tabletIndications:Postop erative hypothyroidism Take 1 (one) tablet by mouth once daily 90 tablet 4 01/13/2021 10/08/2021 Misc Natural Products (NEURIVA PO) Take 2 capsules by mouth every morning 09/14/2022 [place]-3 Fatty Acids (FISH OIL) 1000 MG capsule Take 1,000 mg by mouth 3 times daily with meals. 11/19/2016 05/22/2021 pantoprazole EC (PROTONIX) 40 MG tabletIndications:Gastro esophageal reflux disease, unspecified whether esophagitis present TAKE 1 TABLET BY MOUTH DAILY FOR STOMACH 30 tablet 5 10/07/2020 04/22/2021 thyrotropin tayo (THYROGEN) injectionIndications:Mal ignant Neoplasm of [...] st Contact Info) Description 07/25/2024 10:00 AM POWERHOUSE OPERATOR Office Visit [facility] - Endocrinology [address] [place] [phone] Yosi Bustamante MD [address] [place] [address] 2L [place] [address] 07/26/2024 10:00 AM POWERHOUSE OPERATOR Appointment [facility] DIAGNOSTIC RAD [address] [place] [address] Neri Delgado MD [address] [place] [address] 07/26/2024 10:00 AM POWERHOUSE OPERATOR Office Visit [facility] - ENT [address] [place] [phone] Myra Farmer, PROJECTS MANAGER [address] [place] [address] 2L [place] [phone] 07/26/2024 11:15 AM POWERHOUSE OPERATOR Office Visit [facility] - ENT [address] [place] [phone] Neri Delgado MD [address] [place] [address] 08/02/2024 2:20 PM POWERHOUSE OPERATOR Appointment [facility] [address] [place] [address] 08/02/2024 3:00 PM POWERHOUSE OPERATOR Office Visit [facility] - Hematology/Oncology [address] [place] [address] [place] [phone] Remi Beckett MD [address] [place] [phone] 08/18/2024 1:45 PM POWERHOUSE OPERATOR Office Visit [facility] - ENT [address] [place] [phone] Neri Delgado MD [address] [place] [phone] documented as of this encounter Procedures Procedure Name Priority Date/Time Associated Diagnosis Comments NM THYROID WHOLE BODY SCAN Routine 03/24/2021 1:32 PM CDT Thyroid cancer (HCC) Postoperative hypothyroidism documented in this encounter Results * NM THYROID WHOLE BODY SCAN (03/24/2021 1:32 PM CDT) Anatomical Region Laterality Modality Chest Nuclear Medicine 03/24/2021 12:5 8 PM CDT Impressions 03/24/2021 3:12 PM CDT IMPRESSION: 1.Radiotracer uptake at the thyroid bed is consistent with remaining functional thyroid tissue. 2.No evidence of radiotracer activity outside the thyroid region to suggest tony or distant metastasis. This report was approved ??by Dru Siu ?? on 03/24/2021 3:01 PM . I, Dr. DIANDRA MOSELEY D.O. have personally reviewed and interpreted this examination/study. This report was electronically signed by DIANDRA MOSELEY D.O. ??on 03/24/2021 3:12 PM . Narrative 03/24/2021 3:12 PM CDT PROCEDURE: Post I-131 therapy whole body imaging. [...] region to suggest tony or distant metastasis. Procedure Note Diandra Moseley DO - 03/24/2021 PROCEDURE: Post I-131 therapy whole body imaging. [...] There is no evidence of radiotracer activity outsidethe thyroid region to suggest tony or distant [...] was electronically signed by DIANDRA MOSELEY D.O. on03/24/2021 3:12 PM . Yosi Bustamante MD NM ORDERABLES documented in this encounter Visit Diagnoses Diagnosis Thyroid cancer (HCC) Malignant neoplasm of thyroid gland Postoperative hypothyroidism Postsurgical hypothyroidism documented in this encounter Care Teams Motor [place] Clerk Relationship Specialty Start Date End Date Taniya Grimes MD [address] [place] [address] PCP - General 07/01/20 05/10/22 Marylu Marie DO [address] [place] [address] Resident - PCP Student Resident 06/26/20 01/11/22 documented as of this encounter
--- OUTSIDE RECORDS SUMMARY | 2024-07-23 07:19 | XMS_ITS | Encounter Summary ---
Author Organization [facility] Health Address [address] [facility] [place] [address] Care Team Providers Care Mines Safety Engineer Name Role Phone Marylu Marie DO Unavailable [phone] Taniya Grimes MD Primary Care Provider Encounter Details Date Type Department Care Team (Latest Contact Info) Description 03/24/2021 Travel Social History Tobacco Use Types Packs/Day [...] st Contact Info) Description 07/25/2024 10:00 AM VENDING MACHINE REFILLER Office Visit [facility] - Endocrinology [address] [place] [phone] Yosi Bustamante MD [address] [place] [address] 2L [place] [address] 07/26/2024 10:00 AM VENDING MACHINE REFILLER Appointment [facility] DIAGNOSTIC RAD [address] [place] [address] Neri Delgado MD [address] [place] [address] 07/26/2024 10:00 AM VENDING MACHINE REFILLER Office Visit [facility] - ENT [address] [place] [phone] Myra Farmer, ADVERTISEMENT COMPOSITOR [address] [place] [address] 2L [place] [address] 07/26/2024 11:15 AM VENDING MACHINE REFILLER Office Visit [facility] - ENT [address] [place] [phone] Neri Delgado MD [address] [place] [address] 08/02/2024 2:20 PM VENDING MACHINE REFILLER Appointment [facility]ION CENTER [address] [place] [address] 08/02/2024 3:00 PM VENDING MACHINE REFILLER Office Visit [facility] - Hematology/Oncology [address] [place] [phone] Remi Beckett MD [address] [place] [phone] 08/18/2024 1:45 PM VENDING MACHINE REFILLER Office Visit [facility] - ENT [address] [place] [phone] Neir Delgado MD [address] [place] [address] documented as of this encounter Visit Diagnoses Not on filedocumented in this encounter Care Teams Mines Safety Engineer Relationship Specialty Start Date End Date Taniya Grimes MD [address] [place] [address] 2L DIV OF [facility] [place] [phone] PCP - General 07/01/20 05/10/22 Marylu Marie DO [address] [place] [address] 2L DIV OF [facility] [place] [address] Resident - PCP Student Resident 06/26/20 01/11/22 documented as of this encounter
--- OUTSIDE RECORDS SUMMARY | 2024-07-23 07:19 | XMS_ITS | Encounter Summary ---
Author Organization [facility] Health Address [address] [facility] [place] [address] Care Team Providers Care Hold Worker Name Role Phone Marylu Marie DO Unavailable [phone] Taniya Grimes MD Primary Care Provider Reason for Visit * Reason Onset Date Comments Results 03/27/2021 Encounter Details Date Type Department Care Team (Late st Contact Info) Description 03/27/2021 Telephone [facility], Diabetes and Metabolism [address] [place] [address], [place] [phone] Yosi Bustamante MD [address] [place] [address] of [place], [place] [phone] Results Social History Tobacco Use Types Packs/Day [...] Telephone Encounter - Yosi Bustamante MD - 03/28/2021 2:53 PM CDT READ LETTER SENT LAST WEEK OR RESEND TO PATIENT Yosi Ortiz. MD Dianna Professor of Internal Medicine Division of Endocrinology Department of Internal Medicine * Telephone Encounter - Jane Abdi RN - 03/27/2021 12:25 PM CDT Pt requesting the results of her recent WARD and WBS. CB: [phone] documented in this encounter Plan of Treatment Upcoming Encounters Date Type Department Care Team (Late st Contact Info) Description 07/25/2024 10:00 AM SATELLITE TV TECHNICIAN Office Visit [facility] - Endocrinology [address] [place] [phone] Yosi Bustamante MD [address] [place] [address] 07/26/2024 10:00 AM SATELLITE TV TECHNICIAN Appointment [facility] DIAGNOSTIC RAD [address] [place] [phone] Neri Delgado MD [address] [place] [address] 07/26/2024 10:00 AM SATELLITE TV TECHNICIAN Office Visit [facility] - ENT [address] [place] [phone] Myra Farmer, BILLING TYPIST [address] [place] [address] 2L [place] [phone] 07/26/2024 11:15 AM SATELLITE TV TECHNICIAN Office Visit [facility] - ENT [address] [place] [phone] Neri Delgado MD [address] [place] [address] 08/02/2024 2:20 PM SATELLITE TV TECHNICIAN Appointment [facility] [address] [place] [address] 08/02/2024 3:00 PM SATELLITE TV TECHNICIAN Office Visit [facility] - Hematology/Oncology [address] [place] [phone] Remi Beckett MD [address] [place] [phone] 08/18/2024 1:45 PM SATELLITE TV TECHNICIAN Office Visit [facility] - ENT [address] [place] [phone] Neri Delgado MD [address] [place] [address] documented as of this encounter Visit Diagnoses Not on filedocumented in this encounter Care Teams Hold Worker Relationship Specialty Start Date End Date Taniya Grimes MD [address] [place] [address] 2L DIV [place] [phone] PCP - General 07/01/20 05/10/22 Marylu Marie DO [address] [place] [address] 2L DIV OF [facility] [place] [address] Resident - PCP Student Resident 06/26/20 01/11/22 documented as of this encounter
--- OUTSIDE RECORDS SUMMARY | 2024-07-23 07:19 | XMS_ITS | Encounter Summary ---
Author Organization [facility] Health Address [address] [facility] [place] [address] Care Team Providers Care Financial Accounting Analyst Name Role Phone Marylu Marie DO Unavailable Taniya Grimes MD Primary Care Provider Encounter Details Date Type Department Care Team (Latest Contact Info) Description 03/21/2021 10:13 AM CDT - 03/21/2021 11:59 PM CDT Hospital Encounter [facility] LAB OP DRAW STATION [address] [place] [phone] Discharge Disposition: Home or Self Care Social [...] have Coronavirus / COVID-19? No / Unsure 03/21/2021 10:11 AM CDT documented as of this encounter [...] fluticasone propionate (FLONASE) 50 MCG/ACT nasal spray [place] 2 sprays into each nostril 16 g 09/06/2019 04/11/2021 gabapentin (NEURONTIN) 300 MG capsuleIndications:Prima ry osteoarthritis of left hip TAKE 1 CAPSULE BY MOUTH THREE TIMES A DAY 90 capsule 5 09/11/2020 03/25/2021 [id number] YAL PO Take 1 tablet by mouth 3 times daily 06/13/2023 levothyroxine (SYNTHROID) 112 MCG tabletIndications:Postop erative hypothyroidism Take 1 (one) tablet by mouth once daily 90 tablet 4 01/13/2021 10/08/2021 Misc Natural Products (NEURIVA PO) Take 2 capsules by mouth every morning 09/14/2022 [place]-3 Fatty Acids (FISH OIL) 1000 MG capsule [...] st Contact Info) Description 07/25/2024 10:00 AM PRODUCT MARKETING COORDINATOR Office Visit [facility] - Endocrinology [address] [place] [phone] Yosi Bustamante MD [address] [place] [address] 2L [place] [address] 07/26/2024 10:00 AM PRODUCT MARKETING COORDINATOR Appointment [facility] DIAGNOSTIC RAD [address] [place] [address] Neri Delgado MD [address] [place] [address] 07/26/2024 10:00 AM PRODUCT MARKETING COORDINATOR [facility] [address] [place] [phone] Myra Farmer, SUPERINTENDENT DRILLING [employer] PRODUCTION [address] [place] [address] 2L [place] [phone] 07/26/2024 11:15 AM PRODUCT MARKETING COORDINATOR [facility] [address] [place] [phone] Neri Delgado MD [address] [place] [address] 08/02/2024 2:20 PM PRODUCT MARKETING COORDINATOR Appointment [facility] [address] [place] [address] 08/02/2024 3:00 PM PRODUCT MARKETING COORDINATOR Office Visit [facility] - Hematology/Oncology [address] [place] [phone] Remi Beckett MD [address] [place] [phone] 08/18/2024 1:45 PM PRODUCT MARKETING COORDINATOR Office Visit [facility] - ENT [address] [place] [phone] Neri Delgado MD [address] [place] [address] documented as of this encounter Procedures Procedure Name Priority Date/Time Associated Diagnosis Comments THYROGLOBULIN REFLEX PROFILE Routine 03/21/2021 10:47 AM CDT Postoperative hypothyroidism Thyroid cancer (HCC) Hypocalcemia THYROGLOBULIN BY ANTONIETA RFLXED Routine 03/21/2021 10:47 AM CDT Postoperative hypothyroidism Thyroid cancer (HCC) Hypocalcemia PTH INTACT W/O CALCIUM Routine 03/21/2021 10:47 AM CDT Postoperative hypothyroidism Thyroid cancer (HCC) Hypocalcemia Other hypoparathyroidism PTH INTACT W/O CALCIUM Routine 03/21/2021 10:47 AM CDT Postoperative hypothyroidism Thyroid cancer (HCC) Hypocalcemia VITAMIN D 25-HYDROXY Routine 03/21/2021 10:47 AM CDT Postoperative hypothyroidism Thyroid cancer (HCC) Hypocalcemia RENAL FUNCTION PANEL Routine 03/21/2021 10:47 AM CDT Postoperative hypothyroidism Thyroid cancer (HCC) Hypocalcemia documented in this encounter Results * THYROGLOBULIN BY ANTONIETA RFLXED (03/21/2021 10:47 AM CDT) Thyroglobulin by ANTONIETA 8.4 1.5 - 38.5 ng/mL 03/24/2021 5:08 PM CDT [facility] ([facility]) Comment: According to the National Academy [...] / Unknown 03/21/2021 10:47 AM CDT 03/21/2021 11:15 AM CDT Narrative [facility] ([facility]) - 03/24/2021 5:08 PM CDT Performed at: ??01 - Lab[address] ??[id number] Concrete Pile Driver Operator: Oral Melendez PhD, Phone: ??[phone] Yosi Bustamante MD LAB - CHEMISTRY ORD ERABLES [facility] ([facility]) [address] [place] [address] * THYROGLOBULIN REFLEX PROFILE (03/21/2021 10:47 AM CDT) Pathologist [facility] [place] Thyroglobulin Antibody <1.0 0.0 - 0.9 IU/mL 03/24/2021 5:08 PM CDT [facility] ([facility]) Comment:Thyroglobulin Antibo dy measured by Lisbet [place] Methodology Blood BLOOD SPECIMEN / Unknown Lab Venipuncture / Unknown 03/21/2021 10:47 AM CDT 03/21/2021 11:15 AM CDT Narrative [facility] ([facility]) - 03/24/2021 5:08 PM CDT Performed at: ??01 - [address] ??[id number] Concrete Pile Driver Operator: Oral Melendez PhD, Phone: ??[phone] Yosi Bustamante MD LAB - CHEMISTRY ORD JENISE [facility] ([facility]) [address] [place] [address] * VITAMIN D 25-HYDROXY (03/21/2021 10:47 AM CDT) Pathologist [facility] [place] Vitamin D, 25 Hydroxy 46.0 30.0 - 80.0 ng/mL 03/21/2021 12:09 PM CDT [facility] Comment: The recommendations for 25-Hydroxy Vitamin [...] CDT Yosi Bustamante MD LAB - CHEMISTRY SHANDRA BUR[facility] [address] [place] [address], [facility] [phone] * PTH INTACT W/O CALCIUM (03/21/2021 10:47 AM CDT) [facility] PTH Intact 40.5 8.0 - 77.0 pg/mL 03/21/2021 11:54 AM [facility] Blood BLOOD SPECIMEN / Unknown Lab Venipuncture / Unknown 03/21/2021 10:47 AM CDT 03/21/2021 11:25 AM CDT Yosi Bustamante MD LAB - CHEMISTRY ORD ERABLES Performing Organization Address City/[facility]/ZIP Co de Phone Number [facility] [address] [place] [address], [facility] [phone] * (ABNORMAL) RENAL FUNCTION PANEL (03/21/2021 10:47 AM CDT) [facility] BUN 8 7 - 26 mg/dL 03/21/2021 11:52 AM [facility] Creatinine 0.73 0.56 - 0.96 mg/dL 03/21/2021 11:52 AM [facility] Sodium 141 136 - 145 mmol/L 03/21/2021 11:52 AM [facility] Potassium 4.0 3.5 - 4.5 mmol/L 03/21/2021 11:52 AM [facility] Chloride 106 98 - 107 mmol/L 03/21/2021 11:52 AM [facility] CO2 23 22 - 29 mmol/L 03/21/2021 11:52 AM [facility] Glucose 88 70 - 115 mg/dL 03/21/2021 11:52 AM [facility] Albumin 3.6 3.4 - 5.0 g/dL 03/21/2021 11:52 AM [facility] Calcium 7.8(L) 8.4 - 10.2 mg/dL 03/21/2021 11:52 AM [facility] Phosphorus 4.4 2.9 - 5.1 mg/dL 03/21/2021 11:52 AM [facility] Anion Gap 16 8 - 18 03/21/2021 11:52 AM [facility] BUN/Creatinine Ratio 11 7 - 23 03/21/2021 11:52 AM [facility] Osmolality Calculated 290 270 - 300 mOsm/kg 03/21/2021 11:52 AM CDT [facility] eGFR by CKD-EPI 88(L) >=90 mL/min/1.7 3 m2 03/21/2021 11:52 AM CDT [facility] Blood BLOOD SPECIMEN / Unknown Lab Venipuncture / Unknown 03/21/2021 10:47 AM CDT 03/21/2021 11:25 AM CDT Yosi Bustamante MD LAB - CHEMISTRY ORD ERABLES [address] [address], [place] [phone] * PTH INTACT ([facility]) (03/21/2021 10:47 AM CDT) PTH Intact 42.1 8.0 - 77.0 pg/mL 03/21/2021 11:55 AM CDT [facility] Blood BLOOD SPECIMEN / Unknown Lab Venipuncture / Unknown 03/21/2021 10:47 AM CDT 03/21/2021 11:25 AM CDT Yosi Bustamante MD LAB - CHEMISTRY ORD ERABLES Performing Organization Address City/[facility]/ZIP Co de Phone Number [address] [address], [place] [phone] documented in this encounter Visit Diagnoses Diagnosis Postoperative hypothyroidism- Primary Postsurgical hypothyroidism Thyroid cancer (HCC) Malignant neoplasm of thyroid gland Hypocalcemia Other hypoparathyroidism (HCC) documented in this encounter Care Teams Financial Accounting Analyst Relationship Specialty Start Date End Date Taniya Grimes MD [facility] 2L DIV OF [facility] [place] [phone] PCP - General 07/01/20 05/10/22 Marylu Marie DO [address] [facility] 2L DIV OF [facility] [place] [address] Resident - PCP Student Resident 06/26/20 01/11/22 documented as of this encounter
--- OUTSIDE RECORDS SUMMARY | 2024-07-23 07:19 | XMS_ITS | Encounter Summary ---
Author Organization [facility] Health Address [address] [place] [address] Care Team Providers Care Town Clerk Name Role Phone Marylu Marie DO Unavailable [phone] Taniya Grimes MD Primary Care Provider Encounter Details Date Type Department Care Team (Latest Contact Info) Description 03/21/2021 Travel Social History Tobacco Use Types Packs/Day [...] st Contact Info) Description 07/25/2024 10:00 AM AERIAL PHOTOGRAMMETRIST Office Visit [facility] - Endocrinology [address] [place] [phone] Yosi Bustamante MD [address] [place] [address] 2L [place] [address] 07/26/2024 10:00 AM AERIAL PHOTOGRAMMETRIST Appointment [facility] DIAGNOSTIC RAD [address] [place] [address] Neri Delgado MD [address] [place] [address] 07/26/2024 10:00 AM AERIAL PHOTOGRAMMETRIST Office Visit [facility] - ENT [address] [place] [phone] Myra Farmer, RAND CEMENTER [address] [place] [address] 2L [place] [address] 07/26/2024 11:15 AM AERIAL PHOTOGRAMMETRIST Office Visit [facility] - ENT [address] [place] [phone] Neri Delgado MD [address] [place] [address] 08/02/2024 2:20 PM AERIAL PHOTOGRAMMETRIST Appointment [facility] [address] [place] [address] 08/02/2024 3:00 PM AERIAL PHOTOGRAMMETRIST Office Visit [facility] - Hematology/Oncology [address] [place] [phone] Remi Beckett MD [address] [place] [phone] 08/18/2024 1:45 PM AERIAL PHOTOGRAMMETRIST Office Visit [facility] - ENT [address] [place] [phone] Neri Delgado MD [address] [place] [address] documented as of this encounter Visit Diagnoses Not on filedocumented in this encounter Care Teams Town Clerk Relationship Specialty Start Date End Date Taniya Grimes MD [address] [place] [address] 2L DIV OF [facility] [place] [phone] PCP - General 07/01/20 05/10/22 Marylu Marie DO [address] [place] [address] 2L DIV OF [facility] [place] [address] Resident - PCP Student Resident 06/26/20 01/11/22 documented as of this encounter
--- OUTSIDE RECORDS SUMMARY | 2024-07-23 07:19 | XMS_ITS | Encounter Summary ---
Author Organization [facility] Health Address [address] [place] [address] Care Team Providers Care Rock Cutter Name Role Phone Marylu Marie DO Unavailable [phone] Taniya Grimes MD Primary Care Provider Encounter Details Date Type Department Care Team (Latest Contact Info) Description 03/19/2021 Travel Social History Tobacco Use Types Packs/Day [...] have Coronavirus / COVID-19? No / Unsure 03/19/2021 10:31 AM CDT documented as of this encounter [...] st Contact Info) Description 07/25/2024 10:00 AM SHOW DESIGN SUPERVISOR Office Visit [facility] - Endocrinology [address] [place] [phone] Yosi Bustamante MD [address] [place] [address] 2L [place] [address] 07/26/2024 10:00 AM SHOW DESIGN SUPERVISOR Appointment [facility] DIAGNOSTIC RAD [address] [place] [phone] Neri Delgado MD [address] [place] [address] 07/26/2024 10:00 AM SHOW DESIGN SUPERVISOR Office Visit [facility] - ENT [address] [place] [phone] Myra Farmer, CHILDREN'S MINISTER [address] [place] [address] 2L [place] [address] 07/26/2024 11:15 AM SHOW DESIGN SUPERVISOR Office Visit [facility] - ENT [address] [place] [phone] Neri Delgado MD [address] [place] [address] 08/02/2024 2:20 PM SHOW DESIGN SUPERVISOR Appointment [facility] [address] [place] [address] 08/02/2024 3:00 PM SHOW DESIGN SUPERVISOR Office Visit [facility] - Hematology/Oncology [address] [place] [phone] Remi Beckett MD [address] [place] [phone] 08/18/2024 1:45 PM SHOW DESIGN SUPERVISOR Office Visit [facility] - ENT [address] [place] [phone] Neri Delgado MD [address] [place] [address] documented as of this encounter Visit Diagnoses Not on filedocumented in this encounter Care Teams Rock Cutter Relationship Specialty Start Date End Date Taniya Grimes MD [address] [place] [address] 2L DIV OF [facility] [place] [phone] PCP - General 07/01/20 05/10/22 Marylu Marie DO [address] [place] [address] 2L DIV OF [facility] [place] [address] Resident - PCP Student Resident 06/26/20 01/11/22 documented as of this encounter
--- OUTSIDE RECORDS SUMMARY | 2024-07-23 07:19 | XMS_ITS | Encounter Summary ---
Author Organization [facility] Health Address [address] [facility] [place] [address] Care Team Providers Care Rail Transportation Operator Name Role Phone Marylu Marie DO Unavailable [phone] Taniya Grimes MD Primary Care Provider Encounter Details Date Type Department Care Team (Latest Contact Info) Description 03/19/2021 10:33 AM CDT - 03/19/2021 12:59 PM CDT Hospital Encounter [facility] LAB OP DRAW STATION [address] [place] [phone] Unknown, Provider Discharge Disposition: Home or Self [...] fluticasone propionate (FLONASE) 50 MCG/ACT nasal spray [place] 2 sprays into each nostril 16 g 09/06/2019 04/11/2021 gabapentin (NEURONTIN) 300 MG capsuleIndications:Prima ry osteoarthritis of left hip TAKE 1 CAPSULE BY MOUTH THREE TIMES A DAY 90 capsule 5 09/11/2020 03/25/2021 [id number] YAL PO Take 1 tablet by mouth 3 times daily 06/13/2023 levothyroxine (SYNTHROID) 112 MCG tabletIndications:Postop erative hypothyroidism Take 1 (one) tablet by mouth once daily 90 tablet 4 01/13/2021 10/08/2021 Misc Natural Products (NEURIVA PO) Take 2 capsules by mouth every morning 09/14/2022 [place]-3 Fatty Acids (FISH OIL) 1000 MG capsule [...] st Contact Info) Description 07/25/2024 10:00 AM STEAM PRESS TENDER Office Visit [facility] - Endocrinology [address] [place] [phone] Yosi Bustamante MD [address] [place] [address] 2L [place] [address] 07/26/2024 10:00 AM STEAM PRESS TENDER Appointment [facility] DIAGNOSTIC RAD [address] [place] [phone] Neri Delgado MD [address] [place] [address] 07/26/2024 10:00 AM STEAM PRESS TENDER Office Visit [facility] - ENT [address] [place] [phone] Myra Farmer, ZAIN [address] [place] [address] 2L [place] [phone] 07/26/2024 11:15 AM STEAM PRESS TENDER Office Visit [facility] - ENT [address] [place] [phone] Neri Delgado MD [address] [place] [address] 08/02/2024 2:20 PM STEAM PRESS TENDER Appointment [facility] [address] [place] [address] 08/02/2024 3:00 PM STEAM PRESS TENDER Office Visit [facility] - Hematology/Oncology [address] [place] [phone] Remi Beckett MD [address] [place] [phone] 08/18/2024 1:45 PM STEAM PRESS TENDER Office Visit [facility] - ENT [address] [place] [phone] Neri Delgado MD [address] [place] [address] documented as of this encounter Procedures Procedure Name Priority Date/Time Associated Diagnosis Comments THYROGLOBULIN REFLEX PROFILE Routine 03/19/2021 11:20 AM CDT Postoperative hypothyroidism Thyroid cancer (HCC) Hypocalcemia THYROGLOBULIN BY ANTONIETA RFLXED Routine 03/19/2021 11:20 AM CDT Postoperative hypothyroidism Thyroid cancer (HCC) Hypocalcemia PTH INTACT W/O CALCIUM Routine 11:20 AM CDT Postoperative hypothyroidism Thyroid cancer (HCC) Hypocalcemia TSH REFLEX FREE T4 Routine 03/19/2021 11 :20 AM CDT Postoperative hypothyroidism Thyroid cancer (HCC) Hypocalcemia VITAMIN D 25-HYDROXY Routine 03/19/2021 11:20 AM CDT Postoperative hypothyroidism Thyroid cancer (HCC) Hypocalcemia RENAL FUNCTION PANEL Routine 03/19/2021 11:20 AM CDT Postoperative hypothyroidism Thyroid cancer (HCC) Hypocalcemia T4 FREE Routine 03/19/2021 11:20 AM CDT Postoperative hypothyroidism Thyroid cancer (HCC) Hypocalcemia documented in this encounter Results * THYROGLOBULIN BY ANTONIETA RFLXED (03/19/2021 11:20 AM CDT) Thyroglobulin by ANTONIETA 7.9 1.5 - 38.5 ng/mL 03/20/2021 5:08 PM CDT [facility] ([facility]) Comment: According to the National Academy of [...] is 0.1 ng/mL Thyroglobulin measured by Lisbet [place] Immunometric Assay Blood BLOOD SPECIMEN / Unknown Lab Venipuncture / Unknown 03/19/2021 11:20 AM CDT 03/19/2021 11:28 AM CDT Narrative [facility] ([facility]) - 03/20/2021 5:08 PM CDT Performed at: ??01 - [facility] [address] [place], [place] ??[id number] Dimension Warehouse Supervisor: Oral Melendez PhD, Phone: ??[phone] Yosi Bustamante MD LAB - CHEMISTRY ORD ERABLES Performing Organization Address [facility] Co de Phone Number [facility] ([facility]) [address] [place] [address] * T4 FREE (03/19/2021 11:20 AM CDT) T4 Free 1.4 0.7 - 1.5 ng/dL 03/19/2021 1:21 PM CDT [facility]ORATORY [facility] Blood BLOOD SPECIMEN / Unknown Lab Venipuncture / Unknown 03/19/2021 11:20 AM CDT 03/19/2021 11:29 AM CDT Yosi Bustamante MD LAB - CHEMISTRY ORD ERABLES [facility] [address] [place] [address], [facility] [phone] * THYROGLOBULIN REFLEX PROFILE (03/19/2021 11:20 AM CDT) [facility] Thyroglobulin Antibody <1.0 0.0 - 0.9 IU/mL 03/20/2021 5:08 PM CDT [facility] ([facility]) Comment:Thyroglobulin Antibo dy measured by Lisbet [place] Methodology Blood BLOOD SPECIMEN / Unknown Lab Venipuncture / Unknown 03/19/2021 11:20 AM CDT 03/19/2021 11:28 AM CDT Narrative [facility] ([facility]) - 03/20/2021 5:08 PM CDT Performed at: ??01 - [facility] [address] [place], [place] ??[id number] [employer] Supervisor: Oral Melendez PhD, Phone: ??[phone] Yosi Bustamante MD LAB - CHEMISTRY ORD ERABLES [facility] ([facility]) [address] [place] [address], [facility] * VITAMIN D 25-HYDROXY (03/19/2021 11:20 AM CDT) [facility] Vitamin D, 25 Hydroxy 51.0 30.0 - 80.0 ng/mL 03/19/2021 12:23 PM CDT [facility] Comment: The recommendations for 25-Hydroxy Vitamin D [...] SPECIMEN / Unknown Lab Venipuncture / Unknown 03/19/2021 11:20 AM CDT 03/19/2021 11:29 AM CDT Yosi Bustamante MD LAB - CHEMISTRY ORD ERABLES [facility] [address] [place] [address], [facility] [phone] * (ABNORMAL) RENAL FUNCTION PANEL (03/19/2021 11:20 AM CDT) BUN 13 7 - 26 mg/dL 03/19/2021 11:58 AM [facility] Creatinine 0.75 0.56 - 0.96 mg/dL 03/19/2021 11:58 AM [facility] Sodium 144 136 - 145 mmol/L 03/19/2021 11:58 AM [facility] Potassium 4.5 3.5 - 4.5 mmol/L 03/19/2021 11:58 AM [facility] Chloride 106 98 - 107 mmol/L 03/19/2021 11:58 AM [facility] CO2 28 22 - 29 mmol/L 03/19/2021 11:58 AM [facility] Glucose 94 70 - 115 mg/dL 03/19/2021 11:58 AM [facility] Albumin 3.9 3.4 - 5.0 g/dL 03/19/2021 11:58 AM [facility] Calcium 8.1(L) 8.4 - 10.2 mg/dL 03/19/2021 11:58 AM [facility] Phosphorus 4.7 2.9 - 5.1 mg/dL 03/19/2021 11:58 AM [facility] Anion Gap 15 8 - 18 03/19/2021 11:58 AM [facility] BUN/Creatinine Ratio 17 7 - 23 03/19/2021 11:58 AM CDT [facility]OR[facility]ORY [facility] Osmolality Calculated 298 270 - 300 mOsm/kg 03/19/2021 11:58 AM CDT [facility] eGFR by CKD-EPI 85(L) >=90 mL/min/1.7 3 m2 03/19/2021 11:58 AM CDT [facility] Blood BLOOD SPECIMEN / Unknown Lab Venipuncture / Unknown 03/19/2021 11:20 AM CDT 03/19/2021 11:29 AM CDT Yosi Bustamante MD LAB - CHEMISTRY ORD ERABLES [address] [address], [facility] [phone] * PTH INTACT ([facility]) (03/19/2021 11:20 AM CDT) PTH Intact 53.9 8.0 - 77.0 pg/mL 03/19/2021 11:59 AM CDT [facility] Blood BLOOD SPECIMEN / Unknown Lab Venipuncture / Unknown 03/19/2021 11:20 AM CDT 03/19/2021 11:29 AM CDT Narrative Authorizing Provider Result Gavin Bustamante MD LAB - CHEMISTRY ORD ERABLES [address] [address], [place] [phone] * (ABNORMAL) TSH REFLEX FREE T4 (03/19/2021 11:20 AM CDT) TSH 139.797(H) 0.350 - 4.940 uIU/mL 03/19/2021 12:49 PM CDT [facility] Comment:Result obtained by yaa holliday. Blood BLOOD SPECIMEN / Unknown Lab Venipuncture / Unknown 03/19/2021 11:20 AM CDT 03/19/2021 11:29 AM CDT Narrative Authorizing Provider Result Gavin Bustamante MD LAB - CHEMISTRY ORD ERABLES [facility] [address] [place] [address], [facility] [phone] documented in this encounter Visit Diagnoses Diagnosis Postoperative hypothyroidism- Primary Postsurgical hypothyroidism Thyroid cancer (HCC) Malignant neoplasm of thyroid gland Hypocalcemia Other hypoparathyroidism (HCC) documented in this encounter Care Teams Rail Transportation Operator Relationship Specialty Start Date End Date Taniya Grimes MD [address] [facility] 2L DIV OF [facility] [place] [phone] PCP - General 07/01/20 05/10/22 Marylu Marie DO [address] [facility] [place] [address] Resident - PCP Student Resident 06/26/20 01/11/22 documented as of this encounter
--- OUTSIDE RECORDS SUMMARY | 2024-07-23 07:19 | XMS_ITS | Encounter Summary ---
Author Organization [facility] Health Address [address] [facility] [place] [address] Care Team Providers Care Meat Wrapper Name Role Phone Marylu Marie DO Unavailable Taniya Grimes MD Primary Care Provider Encounter Details Date Type Department Care Team (Latest Contact Info) Description 03/18/2021 2:00 PM CDT Clinical Support [facility] Endocrinology, Diabetes and Metabolism [address] [place] [phone] Postoperative hypothyroidism Social History Tobacco Use Types [...] have Coronavirus / COVID-19? No / Unsure 03/17/2021 10:12 AM CDT documented as of this [...] as of this encounter Progress Notes * Jane Abdi RN - 03/18/2021 2:32 PM CDT Confirmed the identity of the patient and obtain consent for the procedure, ensuing that the patient is not allergic to the medication before administration. Patient verfied that first set of labs were drawnbefore this procedure. Proper handwashing and using sterile equipment utilized during procedure.. Medication and dosage compared to prescription in chart. [facility] [address]-3 LOT - [id number] EXP - 08/2023 Patient supplied own medication. 1.2 sterile water reconstituted with thyrogen continents. Visual inspection for inappropriate appearance (cloudiness, fragments of glass or particles not present) Aspirated the contents of the vial using the needle and syringe, ensuring any air in the syringe isexpelled. Two-needle approach (changing needles after drawing up the injectable solution and beforeadministration) used. Skinned cleansed with alcohol pad. Injected via IM slowly and deeply into the Right gluteal muscle Patient tolerated well. Patient verbalized understanding of next due dates and times for labs to be drawn on Wednesday morning and Wednesday morning to be the same time and same labs. Provider will inform patient of updates as labs findings are resulted. documented in this encounter Plan of Treatment Upcoming Encounters Date Type Department Care Team (Late st Contact Info) Description 07/25/2024 10:00 AM VP INFORMATION TECHNOLOGY Office Visit [facility] - Endocrinology [address] [place] [phone] Yosi Bustamante MD [address] [place] [address] [place] [address] 07/26/2024 10:00 AM VP INFORMATION TECHNOLOGY Appointment [facility] RAD [address] [place] [address] Neri Delgado MD [address] [place] [address] 07/26/2024 10:00 AM VP INFORMATION TECHNOLOGY Office Visit [facility] - ENT [address] [place] [phone] Myra Farmer, X RAY EQUIPMENT SERVICER [address] [place] [address] [place] [phone] 07/26/2024 11:15 AM VP INFORMATION TECHNOLOGY Office Visit [facility] - ENT [address] [place] [phone] Neri Delgado MD [address] [place] [address] 08/02/2024 2:20 PM VP INFORMATION TECHNOLOGY Appointment [facility] [address] [place] [address] 08/02/2024 3:00 PM VP INFORMATION TECHNOLOGY Office Visit [facility] - Hematology/Oncology [address] [place] [phone] Remi Beckett MD [address] [place] [phone] 08/18/2024 1:45 PM VP INFORMATION TECHNOLOGY Office Visit [facility] - ENT [address] [place] [phone] Neri Delgado MD [address] [place] [address] documented as of this encounter Visit Diagnoses Diagnosis Postoperative hypothyroidism- Primary Postsurgical hypothyroidism documented in this encounter Administered Medications Inactive Administered Medications - up to 3 most recent administrations Medication Order MAR Action Action Date Dose Rate Site thyrotropin tayo (Thyrogen) injection 0.9 mg 0.9 mg, Intramuscular, ONCE, 1 dose, On Wed03/18/21 at 1500, for IM injection into the buttock only $ Given 03/18/2021 2:31 PM CDT 0.9 mg Right Dorsogluteal documented in this encounter Care Teams Meat Wrapper Relationship Specialty Start Date End Date Taniya Grimes MD [address] 2L DIV OF [facility] [place] [place] [address] PCP - General 07/01/20 05/10/22 Marylu Marie DO [address] 2L DIV OF [facility] [place] [address] Resident - PCP Student Resident 06/26/20 01/11/22 documented as of this encounter
--- OUTSIDE RECORDS SUMMARY | 2024-07-23 07:19 | XMS_ITS | Encounter Summary ---
Author Organization [facility] Health Address [address] [facility] [place] [address] Care Team Providers Care Php Lamp Developer Name Role Phone Marylu Marie DO Unavailable [phone] Taniya Grimes MD Primary Care Provider Reason for Visit * Reason Comments Refill Request Encounter Details Date Type Department Care Team (Late st Contact Info) Description 03/24/2021 Refill [facility] Internal Medicine [address] [place] [address], [place] [address] Marylu Marie DO [address] [place] [address] OF [facility] [place] [address] Refill Request Social History Tobacco Use Types [...] Telephone Encounter - Alex Smith MD - 03/25/2021 8:25 AM CDT Reviewed patient chart, taking for OA of left hip, follows with ortho. * Telephone Encounter - Lexii Birch RN - 03/24/2021 9:48 AM CDT Refill Request Brisa Hogan ELE: 07/11/20 NOV scheduled: 05/22/2021 LRF: 09/11/20` Qty Disp: 90 # of refills: 3 [...] Contact Info) Description 07/25/2024 10:00 AM INSPECTOR PRECISION ASSEMBLY Office Visit [facility] - Endocrinology [address] [place] [phone] Yosi Bustamante MD [address] [place] [address] [place] [address] 07/26/2024 10:00 AM INSPECTOR PRECISION ASSEMBLY Appointment [facility] DI[facility]IC RAD [address] [place] [address] Neri Delgado MD [address] [place] [address] 07/26/2024 10:00 AM INSPECTOR PRECISION ASSEMBLY Office Visit [facility] - ENT [address] [place] [phone] Myra Farmer, WOOL CARDER [address] [place] [address] 2L [place] [address] 07/26/2024 11:15 AM INSPECTOR PRECISION ASSEMBLY Office Visit [facility] - ENT [address] [place] [phone] Neri Delgado MD [address] [place] [address] 08/02/2024 2:20 PM INSPECTOR PRECISION ASSEMBLY Appointment [facility] [address] [place] [address] 08/02/2024 3:00 PM INSPECTOR PRECISION ASSEMBLY Office Visit [facility] - Hematology/Oncology [address] [place] [phone] Remi Beckett MD [address] [place] [phone] 08/18/2024 1:45 PM INSPECTOR PRECISION ASSEMBLY Office Visit [facility] - ENT [address] [place] [phone] Neri Delgado MD [address] [place] [address] documented as of this encounter Visit Diagnoses Diagnosis Primary osteoarthritis of left hip Primary localized osteoarthrosis, pelvic region and thigh documented in this encounter Care Teams Php Lamp Developer Relationship Specialty Start Date End Date Taniya Grimes MD [address] [place] [address] 2L DIV [place] [phone] PCP - General 07/01/20 05/10/22 Marylu Marie DO [address] [place] [address] Resident - PCP Student Resident 06/26/20 01/11/22 documented as of this encounter
--- OUTSIDE RECORDS SUMMARY | 2024-07-23 07:19 | XMS_ITS | Encounter Summary ---
Author Organization [facility] Health Address [address] [place] [address] Care Team Providers Care Softball Core Molder Name Role Phone Marylu Marie DO Unavailable Taniya Grimes MD Primary Care Provider Reason for Referral * Radiology Services (Routine) - Closed Specialty Diagnoses / Procedures Referred By Contac t Referred To Contact Nuclear Medicine Diagnoses Thyroid cancer (HCC) Postoperative hypothyroidism Procedures NM THYROID THERAPY Yosi Bustamante MD [address] [place] [address] [address] Referral ID Status Reason Start Date Expiration Date Visits Re quested Visits Authorized [id number] Closed 03/03/2021 03/03/2022 1 1 Reason for Visit * Radiology Services (Routine) - Closed Specialty Diagnoses / Procedures Referred By Contac t Referred To Contact Nuclear Medicine Diagnoses Thyroid cancer (HCC) Postoperative hypothyroidism Procedures NM THYROID THERAPY Yosi Bustamante MD [address] [facility] [place] [address] [place] [address] [facility] Nuclear Medicine [address] [place] [address] Referral ID Status Reason Start Date Expiration Date Visits Re quested Visits Authorized [id number] Closed 03/03/2021 03/03/2022 1 1 Encounter Details Date Type Department Care Team (Latest Contact Info) Description 03/19/2021 1:00 PM CDT - 03/19/2021 11:59 PM CDT Hospital Encounter [facility] NUCLEAR MEDICINE [address] [place] [address] Yosi Bustamante MD [address] [facility] [place] [address] [facility] [place] [address] Discharge Disposition: Home or Self Care Social [...] fluticasone propionate (FLONASE) 50 MCG/ACT nasal spray [place] 2 sprays into each nostril 16 g 09/06/2019 04/11/2021 gabapentin (NEURONTIN) 300 MG capsuleIndications:Prima ry osteoarthritis of left hip TAKE 1 CAPSULE BY MOUTH THREE TIMES A DAY 90 capsule 5 09/11/2020 03/25/2021 ZXPIZI-[id number]-[id number]-C-H YAL PO Take 1 tablet by mouth 3 times daily 06/13/2023 levothyroxine (SYNTHROID) 112 MCG tabletIndications:Postop erative hypothyroidism Take 1 (one) tablet by mouth once daily 90 tablet 4 01/13/2021 10/08/2021 Misc Natural Products (NEURIVA PO) Take 2 capsules by mouth every morning 09/14/2022 Danube-3 Fatty Acids (FISH OIL) 1000 MG capsule [...] Contact Info) Description 07/25/2024 10:00 AM PATIENT CASE MANAGER Office Visit [facility] - Endocrinology [address] [place] [phone] Yosi Bustamante MD [address] [place] [address] 2L [place] [address] 07/26/2024 10:00 AM PATIENT CASE MANAGER Appointment [facility] DIAGNOSTIC RAD [address] [place] [address] Neri Delgado MD [address] [place] [address] 07/26/2024 10:00 AM PATIENT CASE MANAGER Office Visit [facility] - ENT [address] [place] [phone] Myra Farmer, SHINGLE TRIMMER [address] [place] [address] 2L [place] [phone] 07/26/2024 11:15 AM PATIENT CASE MANAGER Office Visit [facility] - ENT [address] [place] [phone] Neri Delgado MD [address] [place] [address] 08/02/2024 2:20 PM PATIENT CASE MANAGER Appointment [facility] [address] [place] [address] 08/02/2024 3:00 PM PATIENT CASE MANAGER Office Visit [facility] - Hematology/Oncology [address] [place] [phone] Remi Beckett MD [address] [place] [phone] 08/18/2024 1:45 PM PATIENT CASE MANAGER Office Visit [facility] - ENT [address] [place] [address] Neri Delgado MD [address] [place] [address] documented as of this encounter Procedures Procedure Name Priority Date/Time Associated Diagnosis Comments NM THYROID THERAPY Routine 03/19/2021 2: 49 PM CDT Thyroid cancer (HCC) Postoperative hypothyroidism documented in this encounter Results * NM THYROID THERAPY (03/19/2021 2:49 PM [...] MAR Action Action Date Dose Rate Site I-131 sodium iodide THERAP capsule 157.6 millicurie 157.6 millicurie, Oral, ONCE, 1 dose, On Wed03/19/21 at 1515 $ Given 03/19/2021 2:49 PM CDT 157.6 millicuries documented in this encounter Care Teams Softball Core Molder Relationship Specialty Start Date End Date Taniya Grimes MD [address] 2L DIV OF [facility] [place] [address] PCP - General 07/01/20 05/10/22 Marylu Marie DO [address] 2L DIV OF [facility] [place] [address] Resident - PCP Student Resident 06/26/20 01/11/22 documented as of this encounter
--- OUTSIDE RECORDS SUMMARY | 2024-07-23 07:20 | XMS_ITS | Encounter Summary ---
Author Organization [facility] Health Address [address] [facility] [place] [address] Care Team Providers Care Pilot Name Role Phone Marylu Marie DO Unavailable [phone] Taniya Grimes MD Primary Care Provider Encounter Details Date Type Department Care Team (Latest Contact Info) Description 02/14/2021 Travel Social History Tobacco Use Types Packs/Day [...] have Coronavirus / COVID-19? No / Unsure 02/14/2021 12:04 PM CDT documented as of this encounter [...] st Contact Info) Description 07/25/2024 10:00 AM PARK INTERPRETIVE SPECIALIST Office Visit [facility] - Endocrinology [address] [place] [phone] Yosi Bustamante MD [address] [place] [address] 2L [place] [address] 07/26/2024 10:00 AM PARK INTERPRETIVE SPECIALIST Appointment [facility] DIAGNOSTIC RAD [address] [place] [address] Neri Delgado MD [address] [place] [address] 07/26/2024 10:00 AM PARK INTERPRETIVE SPECIALIST Office Visit [facility] - ENT [address] [place] [phone] Myra Farmer, PHARMACY BENEFITS COORDINATOR [address] [place] [address] 2L [place] [address] 07/26/2024 11:15 AM PARK INTERPRETIVE SPECIALIST Office Visit [facility] - ENT [address] [place] [phone] Neri Delgado MD [address] [place] [address] 08/02/2024 2:20 PM PARK INTERPRETIVE SPECIALIST Appointment [facility] [address] [place] [address] 08/02/2024 3:00 PM PARK INTERPRETIVE SPECIALIST Office Visit [facility] - Hematology/Oncology [address] [place] [phone] Remi Beckett MD [address] [place] [phone] 08/18/2024 1:45 PM PARK INTERPRETIVE SPECIALIST Office Visit [facility] - ENT [address] [place] [phone] Neri Delgado MD [address] [place] [address] documented as of this encounter Visit Diagnoses Not on filedocumented in this encounter Care Teams Pilot Relationship Specialty Start Date End Date Taniya Grimes MD [address] [place] [address] 2L DIV OF [facility] [place] [phone] PCP - General 07/01/20 05/10/22 Marylu Marie DO [address] [place] [address] 2L DIV OF [facility] [place] [address] Resident - PCP Student Resident 06/26/20 01/11/22 documented as of this encounter
--- OUTSIDE RECORDS SUMMARY | 2024-07-23 07:20 | XMS_ITS | Encounter Summary ---
Author Organization [facility] Health Address [address] [facility] [place] [address] Care Team Providers Care Senior Application Software Engineer Name Role Phone Marylu Marie DO Unavailable Taniya Grimes MD Primary Care Provider Encounter Details Date Type Department Care Team (Late st Contact Info) Description 03/04/2021 Orders Only [facility] Endocrinology, Diabetes and Metabolism [address] [place] [address], [place] [phone] Yosi Bustamante MD [address] [place] [address] of Endocrinology [place], [place] [phone] Thyroid cancer (HCC) ; Postoperative hypothyroidism Social [...] Contact Info) Description 07/25/2024 10:00 AM PIPE STEM ALIGNER Office Visit [facility] - Endocrinology [address] [place] [phone] Yosi Bustamante MD [address] [place] [address] 2L [place] [address] 07/26/2024 10:00 AM PIPE STEM ALIGNER Appointment [facility] DI[facility]IC RAD [address] [place] [address] Neri Delgado MD [address] [place] [address] 07/26/2024 10:00 AM PIPE STEM ALIGNER Office Visit [facility] - ENT [address] [place] [phone] Myra Farmer, DYE HOUSE SUPERVISOR [address] [place] [address] 2L [place] [address] 07/26/2024 11:15 AM PIPE STEM ALIGNER Office Visit [facility] - ENT [address] [place] [phone] Neri Delgado MD [address] [place] [address] 08/02/2024 2:20 PM PIPE STEM ALIGNER Appointment [facility] [address] [place] [address] 08/02/2024 3:00 PM PIPE STEM ALIGNER Office Visit [facility] - Hematology/Oncology [address] [place] [phone] Remi Beckett MD [address] [place] [phone] 08/18/2024 1:45 PM PIPE STEM ALIGNER Office Visit [facility] - ENT [address] [place] [phone] Neri Delgado MD [address] [place] [address] documented as of this encounter Visit Diagnoses Diagnosis Thyroid cancer (HCC)- Primary Malignant neoplasm of thyroid gland Postoperative hypothyroidism Postsurgical hypothyroidism documented in this encounter Care Teams Senior Application Software Engineer Relationship Specialty [place] [address] [place] [address] 2L DIV OF [facility] [place] [phone] PCP - General 07/01/20 05/10/22 Marylu Marie DO [address] [place] [address] 2L [place] [address] Resident - PCP Student Resident 06/26/20 01/11/22 documented as of this encounter
--- OUTSIDE RECORDS SUMMARY | 2024-07-23 07:20 | XMS_ITS | Encounter Summary ---
Author Organization [facility] Health Address [address] [facility] [place] [address] Care Team Providers Care Tree Worker Name Role Phone Marylu Marie DO Unavailable [phone] Taniya Grimes MD Primary Care Provider Encounter Details Date Type Department Care Team (Latest Contact Info) Description 03/17/2021 Travel Social History Tobacco Use Types Packs/Day [...] st Contact Info) Description 07/25/2024 10:00 AM ACID REGENERATOR Office Visit [facility] - Endocrinology [address] [place] [phone] Yosi Bustamante MD [address] [place] [address] 2L [place] [address] 07/26/2024 10:00 AM ACID REGENERATOR Appointment [facility] DIAGNOSTIC RAD [address] [place] [address] Neri Delgado MD [address] [place] [address] 07/26/2024 10:00 AM ACID REGENERATOR Office Visit [facility] - ENT [address] [place] [phone] Myra Farmer, JUICE BAR TEAM MEMBER [address] [place] [address] 2L [place] [address] 07/26/2024 11:15 AM ACID REGENERATOR Office Visit [facility] - ENT [address] [place] [phone] Neri Delgado MD [address] [place] [address] 08/02/2024 2:20 PM ACID REGENERATOR Appointment [facility] [address] [place] [address] 08/02/2024 3:00 PM ACID REGENERATOR Office Visit [facility] - Hematology/Oncology [address] [place] [phone] Remi Beckett MD [address] [place] [phone] 08/18/2024 1:45 PM ACID REGENERATOR Office Visit [facility] - ENT [address] [place] [phone] Neri Delgado MD [address] [place] [address] documented as of this encounter Visit Diagnoses Not on filedocumented in this encounter Care Teams Tree Worker Relationship Specialty Start Date End Date Taniya Grimes MD [address] [place] [address] 2L DIV OF [facility] [place] [phone] PCP - General 07/01/20 05/10/22 Marylu Marie DO [address] [place] [address] 2L DIV OF [facility] [place] [address] Resident - PCP Student Resident 06/26/20 01/11/22 documented as of this encounter
--- OUTSIDE RECORDS SUMMARY | 2024-07-23 07:20 | XMS_ITS | Encounter Summary ---
Author Organization [facility] Health Address [address] [facility] [place] [address] Care Team Providers Care Cop Winder Name Role Phone Marylu Marie DO Unavailable Taniya Grimes MD Primary Care Provider Reason for Visit * Reason Onset Date Comments Medication Issue 02/11/2021 Encounter Details Date Type Department Care Team (Late st Contact Info) Description 02/11/2021 Telephone [facility] Endocrinology, Diabetes and Metabolism [address] [place] [address], [place] [phone] Yosi Bustamante MD [address] [place] [address] [place] [address] Medication Issue Social History Tobacco Use Types [...] encounter Miscellaneous Notes * Telephone Encounter - Jane Abdi RN - 02/11/2021 2:02 PM CDT S/W the 3rd pharmacy the pt wanted the office to send the Thyrogen script to and was told that onceagain medication would be a buy and bill. LM on pt's VM explaining the situation to her. This office has tried to send the Thyrogen script to3 or 4 different pharmacies and have been told by all of them that it would have to be buy and bill(pt would have to pay out of pocket). Explained on VM that pt has 2 options- to pay out of pocket or withdrawal from her thyroid medication. This office will not try to send the script to anymore pharmacies. Will await pt's decision whether to pay out of pocket or go through withdrawal. documented in this encounter Plan of Treatment Upcoming Encounters Date Type Department Care Team (Late st Contact Info) Description 07/25/2024 10:00 AM GAME MASTER [facility] - Endocrinology [address] [place] [phone] Yosi Bustamante MD [address] [place] [address] 2L [place] [address] 07/26/2024 10:00 AM GAME MASTER Appointment [facility] [address] [place] [phone] Neri Delgado MD [address] [place] [address] 07/26/2024 10:00 AM GAME MASTER Office Visit [facility] - ENT [address] [place] [phone] Myra Farmer, CATHEAD OPERATOR [address] 2L [place] [address] 07/26/2024 11:15 AM GAME MASTER Office Visit [facility] - ENT [address] [place] [phone] Neri Delgado MD [address] [place] [address] 08/02/2024 2:20 PM GAME MASTER Appointment [facility] [address] [place] [address] 08/02/2024 3:00 PM GAME MASTER Office Visit [facility] Physician Group - Hematology/Oncology [address] [place] [phone] Remi Beckett MD [address] [place] [phone] 08/18/2024 1:45 PM GAME MASTER Office Visit [facility] - ENT [address] [place] [phone] Neri Delgado MD [address] [place] [address] documented as of this encounter Visit Diagnoses Not on filedocumented in this encounter Care Teams Cop Winder Relationship Specialty Start Date End Date Taniya Grimes MD [address] [place] [address] 2L [place] [address] PCP - General 07/01/20 05/10/22 Marylu Marie DO [address] [place] [address] 2L [place] [address] Resident - PCP Student Resident 06/26/20 01/11/22 documented as of this encounter
--- OUTSIDE RECORDS SUMMARY | 2024-07-23 07:20 | XMS_ITS | Encounter Summary ---
Author Organization [facility] Health Address [address] [facility] [place] [address] Care Team Providers Care Character Artist Name Role Phone Marylu Marie DO Unavailable [phone] Taniya Grimes MD Primary Care Provider Encounter Details Date Type Department Care Team (Late st Contact Info) Description 03/05/2021 Orders Only [facility] Endocrinology, Diabetes and Metabolism [address] [place] [address], [place] [phone] Yosi Bustamante MD [address] [place] [address] of Endocrinology [place], [place] [phone] Thyroid cancer (HCC); Postoperative hypothyroidism Social History [...] Contact Info) Description 07/25/2024 10:00 AM OUTSIDE CUTTER Office Visit [facility] Endocr[facility] [address] [place] [phone] Yosi Bustamante MD [address] [place] [address] 2L [place] [address] 07/26/2024 10:00 AM OUTSIDE CUTTER Appointment [facility] [address] [place] [address] Neri Delgado MD [address] [place] [address] 07/26/2024 10:00 AM OUTSIDE CUTTER Office Visit [facility] - ENT [address] [place] [phone] Myra Farmer, MALTER OPERATOR [address] [place] [address] 2L [place] [address] 07/26/2024 11:15 AM OUTSIDE CUTTER Office Visit [facility] - ENT [address] [place] [phone] Neri Delgado MD [address] [place] [address] 08/02/2024 2:20 PM OUTSIDE CUTTER Appointment [facility] [address] [place] [address] 08/02/2024 3:00 PM OUTSIDE CUTTER Office Visit [facility] - Hematology/Oncology [address] [place] [phone] Remi Beckett MD [address] [place] [phone] 08/18/2024 1:45 PM OUTSIDE CUTTER Office Visit [facility] - ENT [address] [place] [phone] Neri Delgado MD [address] [place] [address] documented as of this encounter Visit Diagnoses Diagnosis Thyroid cancer (HCC) Malignant neoplasm of thyroid gland Postoperative hypothyroidism Postsurgical hypothyroidism documented in this encounter Care Teams Character Artist Relationship Specialty Start Date End Date Taniya Grimes MD [address] [place] [address] 2L DIV OF [facility] [address] PCP - General 07/01/20 05/10/22 Marylu Marie DO [address] [place] [address] 2[place] [address] Resident - PCP Student Resident 06/26/20 01/11/22 documented as of this encounter
--- OUTSIDE RECORDS SUMMARY | 2024-07-23 07:20 | XMS_ITS | Encounter Summary ---
Author Organization [facility] Health Address [address] [facility] [place] [address] Care Team Providers Care Needle Loom Tender Name Role Phone Marylu Marie DO Unavailable [phone] Taniya Grimes MD Primary Care Provider Encounter Details Date Type Department Care Team (Latest Contact Info) Description 03/17/2021 10:15 AM CDT - 03/17/2021 11:59 PM CDT Hospital Encounter [facility] [address] [place] [phone] Discharge Disposition: Home or Self Care Social [...] fluticasone propionate (FLONASE) 50 MCG/ACT nasal spray [place] 2 sprays into each nostril 16 g 09/06/2019 04/11/2021 gabapentin (NEURONTIN) 300 MG capsuleIndications:Prima ry osteoarthritis of left hip TAKE 1 CAPSULE BY MOUTH THREE TIMES A DAY 90 capsule 5 09/11/2020 03/25/2021 MALMVM-CEYQRUABJ-GJT-C-H YAL PO Take 1 tablet by mouth 3 times daily 06/13/2023 levothyroxine (SYNTHROID) 112 MCG tabletIndications:Postop erative hypothyroidism Take 1 (one) tablet by mouth once daily 90 tablet 4 01/13/2021 10/08/2021 Misc Natural Products (NEURIVA PO) Take 2 capsules by mouth every morning 09/14/2022 [place]-3 Fatty Acids (FISH OIL) 1000 MG capsule [...] st Contact Info) Description 07/25/2024 10:00 AM CUSTOMER CARE CONSULTANT Office Visit [facility] - Endocrinology [address] [place] [phone] Yosi Bustamante MD [address] [place] [address] 2L [place] [address] 07/26/2024 10:00 AM CUSTOMER CARE CONSULTANT Appointment [facility] [address] [place] [address] Neri Delgado MD [address] [place] [address] 07/26/2024 10:00 AM CUSTOMER CARE CONSULTANT [facility] [address] [place] [phone] Myra Farmer, HAND SLITTER [address] [place] [address] 2L [place] [phone] 07/26/2024 11:15 AM CUSTOMER CARE CONSULTANT [facility] [address] [place] [phone] Neri Delgado MD [address] [place] [address] 08/02/2024 2:20 PM CUSTOMER CARE CONSULTANT Appointment [facility] [address] [place] [address] 08/02/2024 3:00 PM CUSTOMER CARE CONSULTANT Office Visit [facility] - Hematology/Oncology [address] [place] [phone] Remi Beckett MD [address] [place] [phone] 08/18/2024 1:45 PM CUSTOMER CARE CONSULTANT Office Visit [facility] - ENT [address] [place] [phone] Neri Delgado MD [address] [place] [address] documented as of this encounter Procedures Procedure Name Priority Date/Time Associated Diagnosis Comments THYROGLOBULIN REFLEX PROFILE Routine 03/17/2021 10:32 AM CDT Postoperative hypothyroidism Thyroid cancer (HCC) Hypocalcemia THYROGLOBULIN BY ANTONIETA RFLXED Routine 03/17/2021 10:32 AM CDT Postoperative hypothyroidism Thyroid cancer (HCC) Hypocalcemia PTH INTACT W/O CALCIUM Routine 03/17/2021 10:32 AM CDT Postoperative hypothyroidism Thyroid cancer (HCC) Hypocalcemia TSH REFLEX FREE T4 Routine 03/17/2021 10 :32 AM CDT Postoperative hypothyroidism VITAMIN D 25-HYDROXY Routine 03/17/2021 10:32 AM CDT Postoperative hypothyroidism Thyroid cancer (HCC) Hypocalcemia RENAL FUNCTION PANEL Routine 03/17/2021 10:32 AM CDT Postoperative hypothyroidism Thyroid cancer (HCC) Hypocalcemia T4 FREE Routine 03/17/2021 10:32 AM CDT Postoperative hypothyroidism documented in this encounter Results * THYROGLOBULIN BY ANTONIETA RFLXED (03/17/2021 10:32 AM CDT) Thyroglobulin by ANTONIETA 1.7 1.5 - 38.5 ng/mL 03/18/2021 5:08 PM CDT [facility] ([facility]) Comment: According to the National Academy [...] SPECIMEN / Unknown Lab Venipuncture / Unknown 03/17/2021 10:32 AM CDT 03/17/2021 10:58 AM CDT Narrative [facility] ([facility]) - 03/18/2021 5:08 PM CDT Performed at: ??01 - [facility] [address] [place], [place] ??[id number] Nc Manager: Oral Melendez PhD, Phone: ??[phone] Yosi Bustamante MD LAB - CHEMISTRY ORD ERABLES Performing Organization Address City/[facility]/ZIP Co de Phone Number [facility] ([facility]) [address] [place] [address] * T4 FREE (03/17/2021 10:32 AM CDT) T4 Free 1.5 0.7 - 1.5 ng/dL 03/17/2021 12:38 PM CDT [facility] Blood BLOOD SPECIMEN / Unknown Lab Venipuncture / Unknown 03/17/2021 10:32 AM CDT 03/17/2021 11:06 AM CDT Yosi Bustamante MD LAB - CHEMISTRY ORD ERABLES [facility] [address] [phone] [phone] * THYROGLOBULIN REFLEX PROFILE (03/17/2021 10:32 AM CDT) Pathologist [facility] Thyroglobulin Antibody <1.0 0.0 - 0.9 IU/mL 03/18/2021 5:08 PM CDT [facility] ([facility]) Comment:Thyroglobulin Antibo dy measured by Lisbet Marcos Methodology Blood BLOOD SPECIMEN / Unknown Lab Venipuncture / Unknown 03/17/2021 10:32 AM CDT 03/17/2021 10:58 AM CDT Narrative [facility] ([facility]) - 03/18/2021 5:08 PM CDT Performed at: ??01 - [facility] [address] [place], [place] ??[id number] Nc Manager: Oral Melendez PhD, Phone: ??[phone] Yosi Bustamante MD LAB - CHEMISTRY ORD ERABLES [facility] ([facility]) [address] [place] [address] * VITAMIN D 25-HYDROXY (03/17/2021 10:32 AM CDT) Pathologist [facility] Vitamin D, 25 Hydroxy 52.0 30.0 - 80.0 ng/mL 03/17/2021 11:48 AM CDT [facility] Comment: The recommendations for 25-Hydroxy [...] SPECIMEN / Unknown Lab Venipuncture / Unknown 03/17/2021 10:32 AM CDT 03/17/2021 11:06 AM CDT Yosi Bustamante MD LAB - CHEMISTRY ORD ERABLES Performing Organization Address [facility] Co de Phone Number [address] [address], [facility] [phone] * PTH INTACT W/O CALCIUM (03/17/2021 10:32 AM CDT) Pathologist [facility] PTH Intact 45.1 8.0 - 77.0 pg/mL 03/17/2021 11:34 AM CDT [facility] Blood BLOOD SPECIMEN / Unknown Lab Venipuncture / Unknown 03/17/2021 10:32 AM CDT 03/17/2021 11:05 AM CDT Yosi Bustamante MD LAB - CHEMISTRY ORD ERABLES Performing Organization Address [facility] de Phone Number [address] [address], [facility] [phone] * (ABNORMAL) RENAL FUNCTION PANEL (03/17/2021 10:32 AM CDT) Pathologist [facility] BUN 13 7 - 26 mg/dL 03/17/2021 12:20 PM [facility] Creatinine 0.82 0.56 - 0.96 mg/dL 03/17/2021 12:20 PM [facility] Sodium 142 136 - 145 mmol/L 03/17/2021 12:20 PM [facility] Potassium 4.6(H) 3.5 - 4.5 mmol/L 03/17/2021 12:20 PM [facility] Chloride 105 98 - 107 mmol/L 03/17/2021 12:20 PM [facility] CO2 23 22 - 29 mmol/L 03/17/2021 12:20 PM [facility] Glucose 94 70 - 115 mg/dL 03/17/2021 12:20 PM [facility] Albumin 4.0 3.4 - 5.0 g/dL 03/17/2021 12:20 PM [facility] Calcium 8.6 8.4 - 10.2 mg/dL 03/17/2021 12:20 PM [facility] Phosphorus 4.4 2.9 - 5.1 mg/dL 03/17/2021 12:20 PM [facility] Anion Gap 19(H) 8 - 18 03/17/2021 12:20 PM [facility] BUN/Creatinine Ratio 16 7 - 23 03/17/2021 12:20 PM [facility] Osmolality Calculated 294 270 - 300 mOsm/kg 03/17/2021 12:20 PM [facility] eGFR by CKD-EPI 77(L) >=90 mL/min/1.7 3 m2 03/17/2021 12:20 PM [facility] Blood BLOOD SPECIMEN / Unknown Lab Venipuncture / Unknown 03/17/2021 10:32 AM CDT 03/17/2021 11:06 AM CDT Yosi Bustamante MD LAB - CHEMISTRY ORD ERABLES [address] [address], [facility] [phone] * (ABNORMAL) TSH REFLEX FREE T4 (03/17/2021 10:32 AM CDT) TSH <0.010(L) 0.350 - 4.940 uIU/mL 03/17/2021 11:48 AM T [facility] Blood BLOOD SPECIMEN / Unknown Lab Venipuncture / Unknown 03/17/2021 10:32 AM CDT 03/17/2021 11:06 AM CDT Yosi Bustamante MD LAB - CHEMISTRY ORD ERABLES [address] [place] [address], [facility] [phone] documented in this encounter Visit Diagnoses Diagnosis Postoperative hypothyroidism- Primary Postsurgical hypothyroidism Thyroid cancer (HCC) Malignant neoplasm of thyroid gland Hypocalcemia Other hypoparathyroidism (HCC) documented in this encounter Care Teams Needle Loom Tender Relationship Specialty Start Date End Date Taniya Grimes MD [address] [facility] 2L DIV OF [facility] [place] [address] PCP - General 07/01/20 05/10/22 Marylu Marie DO [address] [facility] 2L [place] [address] Resident - PCP Student Resident 06/26/20 01/11/22 documented as of this encounter
--- OUTSIDE RECORDS SUMMARY | 2024-07-23 07:20 | XMS_ITS | Encounter Summary ---
Author Organization [facility] Health Address [address] [facility] [place] [address] Care Team Providers Care Associate Professor Of Psychology Name Role Phone Marylu Marie DO Unavailable Taniya Grimes MD Primary Care Provider Encounter Details Date Type Department Care Team (Late st Contact Info) Description 03/10/2021 Orders Only [facility] Endocrinology, Diabetes and Metabolism [address] [place] [address], [place] [phone] Yosi Bustamante MD [address] [place] [address] of Endocrinology [place], [place] [phone] Thyroid cancer (HCC); Postoperative hypothyroidism Social History [...] st Contact Info) Description 07/25/2024 10:00 AM OFFAL WORKER Office Visit [facility] End[facility] [address] [place] [phone] Yosi Bustamante MD [address] [place] [address] 2L [place] [address] 07/26/2024 10:00 AM OFFAL WORKER Appointment [facility] [address] [place] [address] Neri Delgado MD [address] [place] [address] 07/26/2024 10:00 AM OFFAL WORKER Office Visit [facility] - ENT [address] [place] [phone] Myra Farmer, GREASE REFINER OPERATOR [address] [place] [address] 2L [place] [address] 07/26/2024 11:15 AM OFFAL WORKER Office Visit [facility] ENT [address] [place] [phone] Neri Delgado MD [address] [place] [address] 08/02/2024 2:20 PM OFFAL WORKER Appointment [facility] [address] [place] [address] 08/02/2024 3:00 PM OFFAL WORKER Office Visit [facility] - Hematology/Oncology [address] [place] [phone] Remi Beckett MD [address] [place] [phone] 08/18/2024 1:45 PM OFFAL WORKER Office Visit [facility] Group - ENT [address] [place] [phone] Neri Delgado MD [address] [place] [address] documented as of this encounter Visit Diagnoses Diagnosis Thyroid cancer (HCC) Malignant neoplasm of thyroid gland Postoperative hypothyroidism Postsurgical hypothyroidism documented in this encounter Care Teams Associate Professor Of Psychology Relationship Specialty Start Date End Date Taniya Grimes MD [address] [place] [address] 2L DIV OF [facility] [place] [address] PCP - General 07/01/20 05/10/22 Marylu Marie DO [address] [place] [address] 2[place] [address] Resident - PCP Student Resident 06/26/20 01/11/22 documented as of this encounter
--- OUTSIDE RECORDS SUMMARY | 2024-07-23 07:20 | XMS_ITS | Encounter Summary ---
Author Organization [facility] Health Address [address] [place] [address] Care Team Providers Care Manager Biologics Name Role Phone Marylu Marie DO Unavailable Taniya Grimes MD Primary Care Provider Encounter Details Date Type Department Care Team (Latest Contact Info) Description 03/07/2021 Orders Only [facility] Endocrinology, Diabetes and Metabolism [address] [place] [address], [place] [phone] Yosi Bustamante MD [address] [place] [address] of Endocrinology [place], [place] [phone] Postoperative hypothyroidism; Thyroid cancer (HCC); Hypocalcemia; Other [...] st Contact Info) Description 07/25/2024 10:00 AM AD TRAFFICKER Office Visit [facility] - Endocrinology [address] [place] [phone] Yosi Bustamante MD [address] [place] [address] 2L [place] [address] 07/26/2024 10:00 AM AD TRAFFICKER Appointment [facility] [address] [place] [address] Neri Delgado MD [address] [place] [address] 07/26/2024 10:00 AM AD TRAFFICKER Office Visit [facility] - ENT [address] [place] [phone] Myra Farmer, C D REACTOR OPERATOR [address] [place] [address] 2L [place] [address] 07/26/2024 11:15 AM AD TRAFFICKER Office Visit [facility] - ENT [address] [place] [phone] Neri Delgado MD [address] [place] [address] 08/02/2024 2:20 PM AD TRAFFICKER Appointment [facility] [address] [place] [address] 08/02/2024 3:00 PM AD TRAFFICKER Office Visit [facility] - Hematology/Oncology [address] [place] [phone] Remi Beckett MD [address] [place] [phone] 08/18/2024 1:45 PM AD TRAFFICKER Office Visit [facility] Group - ENT [address] [place] [phone] Neri Delgado MD [facility] [place] [address] documented as of this encounter Visit Diagnoses Diagnosis Postoperative hypothyroidism Postsurgical hypothyroidism Thyroid cancer (HCC) Malignant neoplasm of thyroid gland Hypocalcemia Other hypoparathyroidism (HCC) documented in this encounter Care Teams Manager Biologics Relationship Specialty Start Date End Date Taniya Grimes MD [address] [place] [address] 2[place] [phone] PCP - General 07/01/20 05/10/22 Marylu Marie DO [address] [place] [address] 2[place] [address] Resident - PCP Student Resident 06/26/20 01/11/22 documented as of this encounter
--- OUTSIDE RECORDS SUMMARY | 2024-07-23 07:20 | XMS_ITS | Encounter Summary ---
Author Organization [facility] Health Address [address] [facility] [place] [address] Care Team Providers Care Law Office Receptionist Name Role Phone Marylu Marie DO Unavailable Taniya Grimes MD Primary Care Provider Reason for Referral * Radiology Services (Routine) - Closed Specialty Diagnoses / Procedures Referred By Contac t Referred To Contact Nuclear Medicine Diagnoses Thyroid cancer (HCC) Postoperative hypothyroidism Procedures NM THYROID WHOLE BODY SCAN Yosi Bustamante MD [address] [place] [address] 2[address] [place] [address] [facility] Medicine [address] [place] [phone] Referral ID Status Reason Start Date Expiration Date Visits Re quested Visits Authorized [id number] Closed 03/03/2021 03/03/2022 1 1 * Radiology Services (Routine) - Closed Specialty Diagnoses / Procedures Referred By Contac t Referred To Contact Nuclear Medicine Diagnoses Thyroid cancer (HCC) Postoperative hypothyroidism Procedures NM THYROID THERAPY Yosi Bustamante MD [address] [facility] [address] [place] [address] [facility] Nuclear Medicine [address] [place] [phone] Referral ID Status Reason Start Date Expiration Date Visits Re quested Visits Authorized [id number] Closed 03/03/2021 03/03/2022 1 1 Encounter Details Date Type Department Care Team ([facility] Contact Info) Description 03/03/2021 Orders Only [facility] Endocrinology, Diabetes and Metabolism [address] [place] [phone] Yosi Bustamante MD [address] [place] [address] 2L [place] [address] Thyroid cancer (HCC) ; Postoperative hypothyroidism Social [...] Encounters Date Type Department Care Team (Late Contact Info) Description 07/25/2024 10:00 AM ASSOCIATE PROFESSOR OF ENGINEERING Office Visit [facility] Endocrinology [address] [place] [phone] Yosi Bustamante MD [address] [place] [address] 2L [place] [address] 07/26/2024 10:00 AM ASSOCIATE PROFESSOR OF ENGINEERING Appointment [facility] [address] [place] [address] Neri Delgado MD [address] [place] [address] 07/26/2024 10:00 AM ASSOCIATE PROFESSOR OF ENGINEERING Office Visit [facility] - ENT [address] [place] [phone] Myra Farmer, GAME ATTENDANT [address] [place] [address] 2L [place] [phone] 07/26/2024 11:15 AM ASSOCIATE PROFESSOR OF ENGINEERING Office Visit [facility] - ENT [address] [place] [phone] Neri Delgado MD [address] [place] [address] 08/02/2024 2:20 PM ASSOCIATE PROFESSOR OF ENGINEERING Appointment [facility] [address] [place] [address] 08/02/2024 3:00 PM ASSOCIATE PROFESSOR OF ENGINEERING Office Visit [facility] - Hematology/Oncology [address] [place] [phone] Remi Beckett MD [address] [place] [phone] 08/18/2024 1:45 PM ASSOCIATE PROFESSOR OF ENGINEERING Office Visit [facility] - ENT [address] [place] [phone] Neri Delgado MD [address] [place] [address] documented as of this encounter Results * NM THYROID WHOLE [...] tony or distant metastasis. Procedure Note Diandra Moseley, DO - 03/24/2021 PROCEDURE: Post I-131 therapy [...] Dru Siu on 03/24/2021 3:[address] DIANDRA Mckeon D.O. have personally reviewed and interpreted this examination/study. This report was electronically signed by DIANDRA MOSELEY D.O. on03/24/2021 3:12 PM . Yosi Bustamante MD [place] ORDERABLES * NM THYROID THERAPY (03/19/2021 2:49 PM CDT) Anatomical Region Laterality Modality Nuclear Medicine 03/19/2021 2:41 PM CDT Impressions 03/19/2021 6:06 PM CDT IMPRESSION: Successful oral administration of 157.6 mCi Iodine-131 for the treatment of metastatic papillary thyroid cancer. This report was approved ??by Dru Siu ?? on 03/19/2021 5:[address] DISHA Mckeon M.D. have personally reviewed and interpreted [...] on03/19/2021 6:06 PM . Yosi Bustamante MD [place] ORDERABLES documented in this encounter Visit Diagnoses Diagnosis Thyroid cancer (HCC)- Primary Malignant neoplasm of thyroid gland Postoperative hypothyroidism Postsurgical hypothyroidism Thyroid cancer (HCC) Malignant neoplasm of thyroid gland Postoperative hypothyroidism Postsurgical hypothyroidism Thyroid cancer (HCC) Malignant neoplasm of thyroid gland Postoperative hypothyroidism Postsurgical hypothyroidism documented in this encounter Care Teams Law Office Receptionist Relationship Specialty Start Date End Date Taniya Grimes MD [address] 2L DIV OF [facility] [place] [address] PCP - General 07/01/20 05/10/22 Marylu Marie DO [address] 2L DIV OF [facility] [place] [address] Resident - PCP Student Resident 06/26/20 01/11/22 documented as of this encounter
--- OUTSIDE RECORDS SUMMARY | 2024-07-23 07:20 | XMS_ITS | Encounter Summary ---
Author Organization [facility] Health Address [address] [facility] [place] [address] Care Team Providers Care Aviation All Source Intelligence Name Role Phone Marylu Marie DO Unavailable Taniya Grimes MD Primary Care Provider [phone] Encounter Details Date Type Department Care Team (Latest Contact Info) Description 02/14/2021 12:05 PM CDT - 02/14/2021 11:59 PM CDT Hospital Encounter [facility] OP DRAW STATION [address] [place] [address] Cesar Brooks MD [address] [facility] [address] [place] [address] Discharge Disposition: Home or Self Care Social [...] fluticasone propionate (FLONASE) 50 MCG/ACT nasal spray [place] 2 sprays into each nostril 16 g 09/06/2019 04/11/2021 gabapentin (NEURONTIN) 300 MG capsuleIndications:Prima ry osteoarthritis of left hip TAKE 1 CAPSULE BY MOUTH THREE TIMES A DAY 90 capsule 5 09/11/2020 03/25/2021 [id number]-[id number]-HON-C-H YAL PO Take 1 tablet by mouth 3 times daily 06/13/2023 levothyroxine (SYNTHROID) 112 MCG tabletIndications:Postop erative hypothyroidism Take 1 (one) tablet by mouth once daily 90 tablet 4 01/13/2021 10/08/2021 Misc Natural Products (NEURIVA PO) Take 2 capsules by mouth every morning 09/14/2022 [place]-3 Fatty Acids (FISH OIL) 1000 MG capsule [...] st Contact Info) Description 07/25/2024 10:00 AM REFRACTORY FURNACE DESIGNER Office Visit [facility] - Endocrinology [address] [place] [phone] Yosi Bustamante MD [address] [place] [address] 2L [place] [address] 07/26/2024 10:00 AM REFRACTORY FURNACE DESIGNER Appointment [facility] DIAGNOSTIC RAD [address] [place] [address] Neri Delgado MD [address] [place] [address] 07/26/2024 10:00 AM REFRACTORY FURNACE DESIGNER Office Visit [facility] - ENT [address] [place] [phone] Myra Farmer, BUCKLE COVERER [address] [place] [address] 2L [place] [address] 07/26/2024 11:15 AM REFRACTORY FURNACE DESIGNER Office Visit [facility] - ENT [address] [place] [phone] Neri Delgado MD [address] [place] [address] 08/02/2024 2:20 PM REFRACTORY FURNACE DESIGNER Appointment [facility] [address] [place] [address] 08/02/2024 3:00 PM REFRACTORY FURNACE DESIGNER Office Visit [facility] - Hematology/Oncology [address] [place] [phone] Remi Beckett MD [address] [place] [phone] 08/18/2024 1:45 PM REFRACTORY FURNACE DESIGNER Office Visit [facility] - ENT [address] [place] [phone] Neri Delgado MD [address] [place] [address] documented as of this encounter Procedures Procedure Name Priority Date/Time Associated Diagnosis Comments PTH INTACT W/O CALCIUM Routine 02/14/2021 12:30 PM CDT Postoperative hypothyroidism Thyroid cancer (HCC) Hypocalcemia Other hypoparathyroidism TSH REFLEX FREE T4 Routine 02/14/2021 12:30 PM CDT Postoperative hypothyroidism Thyroid cancer (HCC) Hypocalcemia Other hypoparathyroidism T4 FREE Routine 02/14/2021 12:30 PM CDT Postoperative hypothyroidism Thyroid cancer (HCC) Hypocalcemia Other hypoparathyroidism documented in this encounter Results * T4 FREE (02/14/2021 12:30 PM CDT) T4 Free 1.4 0.7 - 1.5 ng/dL 02/14/2021 2:03 PM CDT [facility] Blood BLOOD SPECIMEN / Unknown Lab Venipuncture / Unknown 02/14/2021 12:30 PM CDT 02/14/2021 12:41 PM CDT Yosi Bustamante MD LAB - CHEMISTRY ORD ERABLES [address] [address], [place] [phone] * PTH INTACT ([facility]) (02/14/2021 12:30 PM CDT) PTH Intact 37.8 8.0 - 77.0 pg/mL 02/14/2021 1:16 PM CDT [facility] Blood BLOOD SPECIMEN / Unknown Lab Venipuncture / Unknown 02/14/2021 12:30 PM CDT 02/14/2021 12:41 PM CDT Yosi Bustamante MD LAB - CHEMISTRY ORD ERABLES Performing Organization Address City/[facility]/ZIP Co de Phone Number [address] [address], [place] [phone] * (ABNORMAL) TSH REFLEX FREE T4 (02/14/2021 12:30 PM CDT) TSH 0.028(L) 0.350 - 4.940 uIU/mL 02/14/2021 1:31 PM CDT [facility] Blood BLOOD SPECIMEN / Unknown Lab Venipuncture / Unknown 02/14/2021 12:30 PM CDT 02/14/2021 12:41 PM CDT Yosi Bustamante MD LAB - CHEMISTRY ORD ERABLES Performing Organization Address City/[facility]/ZIP Co de Phone Number [address] [address], [place] [phone] documented in this encounter Visit Diagnoses Diagnosis Postoperative hypothyroidism- Primary Postsurgical hypothyroidism Thyroid cancer (HCC) Malignant neoplasm of thyroid gland Hypocalcemia Other hypoparathyroidism (HCC) documented in this encounter Care Teams Aviation All Source Intelligence Relationship Specialty Start Date End Date Taniya Grimes MD [address] 2L DIV OF [place] [address] PCP - General 07/01/20 05/10/22 Marylu Marie DO [address] 2L DIV OF [facility] [place] [address] Resident - PCP Student Resident 06/26/20 01/11/22 documented as of this encounter
--- OUTSIDE RECORDS SUMMARY | 2024-07-23 07:20 | XMS_ITS | Encounter Summary ---
Author Organization [facility] Health Address [address] [facility] [place] [address] Care Team Providers Care Tenant Coordinator Name Role Phone Marylu Marie DO Unavailable Taniya Grimes MD Primary Care Provider Encounter Details Date Type Department Care Team (Latest Contact Info) Description 02/14/2021 12:05 PM CDT Hospital Encounter [facility] DIAGNOSTIC RAD OP [address] [place] [phone] Cesar Brooks MD [address] [facility] [address] [place], [place] [phone] Discharge Disposition: Home or Self Care Social [...] fluticasone propionate (FLONASE) 50 MCG/ACT nasal spray [place] 2 sprays into each nostril 16 g 09/06/2019 04/11/2021 gabapentin (NEURONTIN) 300 MG capsuleIndications:Prima ry osteoarthritis of left hip TAKE 1 CAPSULE BY MOUTH THREE TIMES A DAY 90 capsule 5 09/11/2020 03/25/2021 [id number]-SOS-C-H YAL PO Take 1 tablet by mouth 3 times daily 06/13/2023 levothyroxine (SYNTHROID) 112 MCG tabletIndications:Postop erative hypothyroidism Take 1 (one) tablet by mouth once daily 90 tablet 4 01/13/2021 10/08/2021 Misc Natural Products (NEURIVA PO) Take 2 capsules by mouth every morning 09/14/2022 [place]-3 Fatty Acids (FISH OIL) 1000 MG capsule [...] st Contact Info) Description 07/25/2024 10:00 AM WRONG ADDRESS CLERK Office Visit [facility] - Endocrinology [address] [place] [phone] Yosi Bustamante MD [address] [place] [address] 2L [place] [address] 07/26/2024 10:00 AM WRONG ADDRESS CLERK Appointment [facility] DIAGNOSTIC RAD [address] [place] [address] Neri Delgado MD [address] [place] [address] 07/26/2024 10:00 AM WRONG ADDRESS CLERK Office Visit [facility] - ENT [address] [place] [phone] Myra Farmer, RESEARCH SPECIALIST [address] [place] [address] 2L [place] [address] 07/26/2024 11:15 AM WRONG ADDRESS CLERK Office Visit [facility] - ENT [address] [place] [address] [place] [phone] Neri Delgado MD [address] [place] [address] 08/02/2024 2:20 PM WRONG ADDRESS CLERK Appointment [facility] [address] [place] [address] 08/02/2024 3:00 PM WRONG ADDRESS CLERK Office Visit [facility] - Hematology/Oncology [address] [place] [phone] [place] [address] [place] [phone] 08/18/2024 1:45 PM WRONG ADDRESS CLERK Office Visit [facility] - ENT [address] [place] [phone] Neri Delgado MD [facility]5 [place] [address] documented as of this encounter Procedures Procedure Name Priority Date/Time Associated Diagnosis Comments XR KNEE LEFT 4VW OR MORE Routine 02/14/2021 12:18 PM CDT Knee pain, unspecified chronicity, unspecified laterality documented in this encounter Results * XR KNEE LEFT 4VW OR MORE (02/14/2021 12:18 PM CDT) Anatomical Region Laterality Modality Lower Extremity Radiographic Ewa ging 02/14/2021 1:15 PM CDT Impressions 02/14/2021 [...] . Cesar Brooks MD DIAGNOSTIC IMAGING ORDERABLES documented in this encounter Visit Diagnoses Diagnosis Knee pain, unspecified chronicity, unspecified laterality documented in this encounter Care Teams Tenant Coordinator Relationship Specialty Start Date End Date Taniya Grimes MD [address] 2L DIV OF [facility] [place] [address] PCP - General 07/01/20 05/10/22 Marylu Marie DO [address] 2L DIV OF [facility] [place] [address] Resident - PCP Student Resident 06/26/20 01/11/22 documented as of this encounter
--- OUTSIDE RECORDS SUMMARY | 2024-07-23 07:20 | XMS_ITS | Encounter Summary ---
Author Organization [facility] Health Address [address] [facility] [place] [address] Care Team Providers Care Preschool Education Director Name Role Phone Marylu Marie DO Unavailable Taniya Grimes MD Primary Care Provider Reason for Visit * Reason Onset Date Comments Scheduling 03/04/2021 Encounter Details Date Type Department Care Team (Late st Contact Info) Description 03/04/2021 Telephone [facility]ology, Diabetes and Metabolism [address] [place] [address], [place] [phone] Yosi Bustamante MD [address] [place] [address] of [place], [place] [phone] Scheduling Social History Tobacco Use Types Packs/Day Years [...] Telephone Encounter - Jane Abdi RN - 03/04/2021 9:52 AM CDT Called nuc med and scheduled pt for WARD Ablation 03/19 at 1PM and WBS 03/24 at 12:30PM. Called pt to inform her that the Thyrogen protocol will be the week of March 17. Schedule as follows: Wednesday- Labs in AM, Thyrogen inj at 2PM. Wednesday- Thyrogen inj at 2PM Wednesday- Labs in AM, WARD ablation at 1PM. - Nothing Wednesday- Labs in AM Wednesday- WBS at 12:30 Counseled pt on the need for low iodine diet for the next 2 weeks, can go back to regular diet after WBS. Also informed pt that she needs to get her labs done at the same time each day. Pt verbalizedunderstanding. documented in this encounter Plan of Treatment Upcoming Encounters Date Type Department Care Team (Late st Contact Info) Description 07/25/2024 10:00 AM PARA PROFESSIONAL Office Visit [facility] - Endocrinology [address] [place] [address], [place] [address] Yosi Bustamante MD [address] [place] [address] [place] [address] 07/26/2024 10:00 AM PARA PROFESSIONAL Appointment [facility] DIAGNOSTIC RAD [address] [place] [address] Neri Delgado MD [address] [place] [address] 07/26/2024 10:00 AM PARA PROFESSIONAL Office Visit [facility] - ENT [address] [place] [phone] Myra Farmer, LOFTER [address] [place] [address] 2L [place] [phone] 07/26/2024 11:15 AM PARA PROFESSIONAL Office Visit [facility] - ENT [address] [place] [phone] Neri Delgado MD [address] [place] [address] 08/02/2024 2:20 PM PARA PROFESSIONAL Appointment [facility] [address] [place] [address] 08/02/2024 3:00 PM PARA PROFESSIONAL Office Visit [facility] - Hematology/Oncology [address] [place] [phone] Remi Beckett MD [address] [place] [phone] 08/18/2024 1:45 PM PARA PROFESSIONAL Office Visit [facility] - ENT [address] [place] [phone] Neri Delgado MD [address] [place] [address] documented as of this encounter Visit Diagnoses Not on filedocumented in this encounter Care Teams Preschool Education Director Relationship Specialty Start Date End Date Taniya Grimes MD [address] [place] [address] 2L DIV [place] [phone] PCP - General 07/01/20 05/10/22 Marylu Marie DO [address] [place] [address] Resident - PCP Student Resident 06/26/20 01/11/22 documented as of this encounter
--- OUTSIDE RECORDS SUMMARY | 2024-07-23 07:20 | XMS_ITS | Encounter Summary ---
Author Organization [facility] Health Address [address] [facility] [place] [address] Care Team Providers Care Automation Engineering Manager Name Role Phone Marylu Marie DO Unavailable Taniya Grimes MD Primary Care Provider Encounter Details Date Type Department Care Team (Latest Contact Info) Description 03/17/2021 2:00 PM CDT Clinical Support [facility] Endocrinology, Diabetes and Metabolism [address] [place] [phone] Postoperative hypothyroidism Social History Tobacco Use Types [...] Progress Notes * Jane Abdi RN - 03/17/2021 2:12 PM CDT Confirmed the identity of the patient and obtain consent for the procedure, ensuing that the patient is not allergic to the medication before administration. Patient verfied that first set of labs were drawnbefore this procedure. Proper handwashing and using sterile equipment utilized during procedure.. Medication and dosage compared to prescription in chart. [facility]- [id number] LOT - [id number] EXP - 08/28 Patient supplied own medication. 1.2 sterile water [...] via IM slowly and deeply into the Left gluteal muscle Patient tolerated well. Is to return 24 hrs for next dose. Patient verbalized understanding of next due dates and times for labs to be drawn on Wednesday morning and Wednesday to be the same time and same labs. Provider will inform patient of updates as labs findings are resulted. documented in this encounter Plan of Treatment Upcoming Encounters Date Type Department Care Team (Late st Contact Info) Description 07/25/2024 10:00 AM PERSONAL COACH Office Visit [facility] - Endocrinology [address] [place] [phone] Yosi Bustamante MD [address] [place] [address] [place] [address] 07/26/2024 10:00 AM PERSONAL COACH Appointment [facility] DIAGNOSTIC RAD [address] [place] [address] Neri Delgado MD [address] [place] [address] 07/26/2024 10:00 AM PERSONAL COACH Office Visit [facility] - ENT [address] [place] [phone] Myra Farmer, PLATFORM ATTENDANT [address] [place] [address] [place] [phone] 07/26/2024 11:15 AM PERSONAL COACH Office Visit [facility] - ENT [address] [place] [phone] Neri Delgado MD [address] [place] [address] 08/02/2024 2:20 PM PERSONAL COACH Appointment [facility] [address] [place] [address] 08/02/2024 3:00 PM PERSONAL COACH Office Visit [facility] - Hematology/Oncology [address] [place] [phone] Remi Beckett MD [address] [place] [phone] 08/18/2024 1:45 PM PERSONAL COACH Office Visit [facility] - ENT [address] [place] [phone] Neri Delgado MD [address] [place] [address] documented as of this encounter Visit Diagnoses Diagnosis Postoperative hypothyroidism- Primary Postsurgical hypothyroidism documented in this encounter Administered Medications Inactive Administered Medications - up to 3 most recent administrations Medication Order MAR Action Action Date Dose Rate Site thyrotropin tayo (Thyrogen) injection 0.9 mg 0.9 mg, Intramuscular, ONCE, 1 dose, On Wed03/17/21 at 1430, for IM injection into the buttock only $ Given 03/17/2021 2:31 PM CDT 0.9 mg Left Dorsogluteal documented in this encounter Care Teams Automation Engineering Manager Relationship Specialty Start Date End Date Taniya Grimes MD [address] 2L DIV OF [facility] [place] [address] PCP - General 07/01/20 05/10/22 Marylu Marie DO [address] 2L DIV OF [facility] [place] [address] Resident - PCP Student Resident 06/26/20 01/11/22 documented as of this encounter
--- OUTSIDE RECORDS SUMMARY | 2024-07-23 07:21 | XMS_ITS | Encounter Summary ---
Author Organization [facility] Health Address [address] [place] [address] Care Team Providers Care Global Risk Management Director Name Role Phone Marylu Marie DO Unavailable Taniya Grimes MD Primary Care Provider Reason for Visit * Reason Onset Date Comments Question 02/07/2021 Encounter Details Date Type Department Care Team (Late st Contact Info) Description 02/07/2021 Telephone [facility] End[facility]inology, Diabetes and Metabolism [address] [place] [address], [place] [phone] Yosi Bustamante MD [address] [place] [address] of [place], [place] [phone] Question Social History Tobacco Use Types Packs/Day [...] encounter Miscellaneous Notes * Telephone Encounter - Luis Reddy - 02/07/2021 1:05 PM CDT Please call pharmacy. PA is needed. documented in this encounter Plan of Treatment Upcoming Encounters Date Type Department Care Team (Late st Contact Info) Description 07/25/2024 10:00 AM LAYBOY TENDER Office Visit [facility] - Endocrinology [address] [place] [phone] Yosi Bustamante MD [address] [place] [address] 2L [place] [address] 07/26/2024 10:00 AM LAYBOY TENDER Appointment [facility] DIAGNOSTIC RAD [address] [place] [address] Neri Delgado MD [address] [place] [address] 07/26/2024 10:00 AM LAYBOY TENDER Office Visit [facility] - ENT [address] [place] [phone] Myra Farmer, ZAIN [address] [place] [address] 2L [place] [phone] 07/26/2024 11:15 AM LAYBOY TENDER Office Visit [facility] - ENT [address] [place] [phone] Neri Delgado MD [address] [place] [address] 08/02/2024 2:20 PM LAYBOY TENDER Appointment [facility] [address] [place] [address] 08/02/2024 3:00 PM LAYBOY TENDER Office Visit [facility]ician Group - Hematology/Oncology [address] [place] [phone] Remi Beckett MD [address] [place] [phone] 08/18/2024 1:45 PM LAYBOY TENDER Office Visit [facility] Group - ENT [address] [place] [phone] Neri Delgado MD [address] [place] [address] documented as of this encounter Visit Diagnoses Not on filedocumented in this encounter Care Teams Global Risk Management Director Relationship Specialty Start Date End Date Taniya Grimes MD [address] [place] [address] 2L DIV OF [facility] [phone] PCP - General 07/01/20 05/10/22 Marylu Marie DO [address] [place] [address] 2L DIV OF [facility] [place] [address] Resident - PCP Student Resident 06/26/20 01/11/22 documented as of this encounter
--- OUTSIDE RECORDS SUMMARY | 2024-07-23 07:21 | XMS_ITS | Encounter Summary ---
Author Organization [facility] Health Address [address] [facility] [place] [address] Care Team Providers Care Manager Alliance Name Role Phone Marylu Marie DO Unavailable [phone] Taniya Grimes MD Primary Care Provider Encounter Details Date Type Department Care Team (Late st Contact Info) Description 01/29/2021 Orders Only [facility] Endocrinology, Diabetes and Metabolism [address] [place] [address], [place] [phone] Yosi Bustamante MD [address] [place] [address] of Endocrinology [place], [place] [phone] Thyroid cancer (HCC) Social History Tobacco Use [...] st Contact Info) Description 07/25/2024 10:00 AM TELEX OPERATOR Office Visit [facility] Group - Endocrinology [address] [place] [phone] Yosi Bustamante MD [address] [place] [address] 2L Div [place] [address] 07/26/2024 10:00 AM TELEX OPERATOR Appointment [facility] DIAGNOSTIC RAD [address] [place] [address] Neri Delgado MD [address] [place] [address] 07/26/2024 10:00 AM TELEX OPERATOR [facility] - ENT [address] [place] [phone] Myra Farmer, SENIOR DATA ANALYST [address] [place] [address] 2L [place] [phone] 07/26/2024 11:15 AM TELEX OPERATOR [facility] ENT [address] [place] [phone] Neri Delgado MD [address] [place] [address] 08/02/2024 2:20 PM TELEX OPERATOR Appointment [facility] [address] [place] [address] 08/02/2024 3:00 PM TELEX OPERATOR Office Visit [facility] Group - Hematology/Oncology [address] [place] [phone] Remi Beckett MD [address] [place] [phone] 08/18/2024 1:45 PM TELEX OPERATOR Office Visit [facility] - ENT [address] [place] [address] Neri Delgado MD [address] [place] [address] documented as of this encounter Visit Diagnoses Diagnosis Thyroid cancer (HCC)- Primary Malignant neoplasm of thyroid gland documented in this encounter Care Teams Manager Alliance Relationship Specialty Start Date End Date Taniya Grimes MD [address] [place] [address] 2L DIV OF [facility] [place] [place] [phone] PCP - General 07/01/20 05/10/22 Marylu Marie DO [address] [place] [address] 2[place] [address] Resident - PCP Student Resident 06/26/20 01/11/22 documented as of this encounter
--- OUTSIDE RECORDS SUMMARY | 2024-07-23 07:21 | XMS_ITS | Encounter Summary ---
Author Organization [facility] Health Address [address] [facility] [place] [address] Care Team Providers Care Oil Filters Inspector Name Role Phone Marylu Marie DO Unavailable [phone] Taniya Grimes MD Primary Care Provider Reason for Visit * Reason Onset Date Comments MEDICATION REFILL 01/01/2021 Encounter Details Date Type Department Care Team (Late st Contact Info) Description 01/01/2021 Refill [facility] [address] [place] [address], [place] [phone] Yosi Bustamante MD [address] [place] [address] [place] [address] MEDICATION REFILL Social History Tobacco Use Types Packs/Day Years Used Date Smoking Tobacco: Light Smoker Cigarettes 0.3 51 Started: 07/22/1973 Smokeless Tobacco: Never Comments:1 cig a day Alcohol Use Standard Drinks/Week [...] Telephone Encounter - Jane Abdi RN - 01/01/2021 11:23 AM CDT Refill Request Brisa Hogan ELE: 10/14/20 NOV scheduled: 01/13/2021 LRF: Unknown Qty Disp: Unknown # of refills: Unknown Allergies: No Known Allergies Pended Medication Order: Requested Prescriptions Pending Prescriptions Disp Refills ??? levothyroxine (SYNTHROID) 112 MCG tablet 90 tablet 4 Sig: Take 1 (one) tablet by mouth once daily documented in this encounter Plan of Treatment Upcoming Encounters Date Type Department Care Team (Late st Contact Info) Description 07/25/2024 10:00 AM PETAL CUTTER Office Visit [facility] - Endocrinology [address] [place] [phone] Yosi Bustamante MD [address] [place] [address] 2L Div [place] [address] 07/26/2024 10:00 AM PETAL CUTTER Appointment [facility] [address] [place] [address] Neri Delgado MD [address] [place] [address] 07/26/2024 10:00 AM PETAL CUTTER Office Visit [facility] - ENT [address] [place] [phone] Myra Farmer, EMERGENCY MANAGEMENT PROGRAM SPECIALIST [address] [place] [address] 2L [place] [address] 07/26/2024 11:15 AM PETAL CUTTER Office Visit [facility] ENT [address] [place] [phone] Neri Delgado MD [address] [place] [address] 08/02/2024 2:20 PM PETAL CUTTER Appointment [facility] [address] [place] [address] 08/02/2024 3:00 PM PETAL CUTTER Office Visit [facility] - Hematology/Oncology [address] [place] [phone] Remi Beckett MD [facility] [place] [phone] 08/18/2024 1:45 PM PETAL CUTTER Office Visit [facility] - ENT [address] [place] [phone] Neri Delgado MD [facility] [place] [address] documented as of this encounter Visit Diagnoses Diagnosis Postoperative hypothyroidism- Primary Postsurgical hypothyroidism documented in this encounter Care Teams Oil Filters Inspector Relationship Specialty Start Date End Date Taniya Grimes MD [address] [place] [address] 2L DIV OF [facility] [address] PCP - General 07/01/20 05/10/22 Marylu Marie DO [address] [place] [address] 2L DIV OF [facility] [place] [address] Resident - PCP Student Resident 06/26/20 01/11/22 documented as of this encounter
--- OUTSIDE RECORDS SUMMARY | 2024-07-23 07:21 | XMS_ITS | Encounter Summary ---
Author Organization [facility] Health Address [address] [facility] [place] [address] Care Team Providers Care Retail Client Solutions Analyst Name Role Phone Marylu Marie DO Unavailable Taniya Grimes MD Primary Care Provider Reason for Visit * Reason Onset Date Comments Medication Issue 02/06/2021 Encounter Details Date Type Department Care Team (Late st Contact Info) Description 02/06/2021 Telephone [facility] Diabetes [facility] [address] [place] [address], [place] [phone] Yosi Bustamante MD [address] [place] [address] [place] [address] Medication Issue Social History Tobacco Use Types [...] Telephone Encounter - Jane Abdi RN - 02/06/2021 10:25 AM CDT Pt LM on RN VM stating she s/w her insurance company and was told to send script for Thyrogen to [facility] in [place], [place]. Script sent. documented in this encounter Plan of Treatment Upcoming Encounters Date Type Department Care Team (Late st Contact Info) Description 07/25/2024 10:00 AM JAI ALAI PLAYER [facility] [address] [place] [phone] Yosi Bustamante MD [address] [place] [address] 2L [place] [address] 07/26/2024 10:00 AM JAI ALAI PLAYER Appointment [facility] [address] [place] [address] Neri Delgado MD [address] [place] [address] 07/26/2024 10:00 AM JAI ALAI PLAYER Office Visit [facility] - ENT [address] [place] [phone] Myra Farmer, PARATRANSIT DRIVER [address] [place] [address] 2L [place] [phone] 07/26/2024 11:15 AM JAI ALAI PLAYER Office Visit [facility] ENT [address] [place] [phone] Neri Delgado MD [address] [place] [address] 08/02/2024 2:20 PM JAI ALAI PLAYER Appointment [facility] [address] [place] [address] 08/02/2024 3:00 PM JAI ALAI PLAYER Office Visit [facility] - Hematology/Oncology [address] [place] [phone] Remi Beckett MD [address] [place] [phone] 08/18/2024 1:45 PM JAI ALAI PLAYER Office Visit [facility] - ENT [address] [place] [address] Neri Delgado MD [address] [place] [address] documented as of this encounter Visit Diagnoses Diagnosis Thyroid cancer (HCC) Malignant neoplasm of thyroid gland documented in this encounter Care Teams Retail Client Solutions Analyst Relationship Specialty Start Date End Date Taniya Grimes MD [address] [facility] 2L DIV OF [facility] [place] [address] PCP - General 07/01/20 05/10/22 Marylu Marie DO [address] [facility] 2L DIV OF [facility] [place] [address] Resident - PCP Student Resident 06/26/20 01/11/22 documented as of this encounter
--- OUTSIDE RECORDS SUMMARY | 2024-07-23 07:21 | XMS_ITS | Encounter Summary ---
Author Organization [facility] Health Address [address] [facility] [place] [address] Care Team Providers Care Relay Record Clerk Name Role Phone Marylu Marie DO Unavailable Taniya Grimes MD Primary Care Provider Encounter Details Date Type Department Care Team (Late st Contact Info) Description 01/09/2021 Orders Only [facility] [address] [facility], [place] [phone] Cesar Brooks MD [address] [facility] 280 [place], [place] [phone] Knee pain, unspecified chronicity, unspecified laterality Social History Tobacco Use Types Packs/Day Years [...] st Contact Info) Description 07/25/2024 10:00 AM SPLITTER MACHINE Office Visit [facility] Group - Endocrinology [address] [place] [phone] Yosi Bustamante MD [address] [place] [address] 2L [place] [address] 07/26/2024 10:00 AM SPLITTER MACHINE Appointment [facility] [address] [place] [phone] Neri Delgado MD [address] [place] [address] 07/26/2024 10:00 AM SPLITTER MACHINE Office Visit [facility] - ENT [address] [place] [phone] Myra Farmer, CONSTRUCTION ENGINEERING MANAGER [address] [place] [address] 2L [place] [phone] 07/26/2024 11:15 AM SPLITTER MACHINE [facility] [address] [place] [phone] Neri Delgado MD [address] [place] [address] 08/02/2024 2:20 PM SPLITTER MACHINE Appointment [facility] [address] [place] [address] 08/02/2024 3:00 PM SPLITTER MACHINE Office Visit [facility] Group - Hematology/Oncology [address] [place] [phone] Remi Beckett MD [address] [place] [phone] 08/18/2024 1:45 PM SPLITTER MACHINE Office Visit [facility] - ENT [address] [place] [phone] Neri Delgado MD [address] [place] [address] documented as of this encounter Results * XR KNEE LEFT [...] Diagnoses Diagnosis Knee pain, unspecified chronicity, unspecified laterality- Primary Knee pain, unspecified chronicity, unspecified laterality documented in this encounter Care Teams Relay Record Clerk Relationship Specialty Start Date End Date Taniya Grimes MD [address] [place] [address] 2L DIV OF [facility] [place] [address] PCP - General 07/01/20 05/10/22 Marylu Marie DO [address] [place] [address] Resident - PCP Student Resident 06/26/20 01/11/22 documented as of this encounter
--- OUTSIDE RECORDS SUMMARY | 2024-07-23 07:21 | XMS_ITS | Encounter Summary ---
Author Organization [facility] Health Address [address] [facility] [place] [address] Care Team Providers Care Bike Shop Manager Name Role Phone Marylu Marie DO Unavailable Taniya Grimes MD Primary Care Provider [phone] Reason for Visit * Reason Onset Date Comments MEDICATION REFILL 02/04/2021 Encounter Details Date Type Department Care Team (Late st Contact Info) Description 02/04/2021 Refill [facility] Diabetes [facility] Metabolism [address] [place] [address], [facility] [place] [phone] Yosi Bustamante MD [address] [place] [address] [place] [address] MEDICATION REFILL Social History Tobacco Use Types [...] Telephone Encounter - Jane Abdi RN - 02/04/2021 10:28 AM CDT S/W [facility] regarding getting Thyrogen filled. Pt's insurance approve the [place] for the Thyrogen, yet pharmacy was still getting a denial when they tried to run it. S/W pt to inform her of the situation and she provided the name of another pharmacy her insurance told her could fill it. Will attempt to have it go through the second pharmacy and if it does not go through pt will need to contact her insurance again. documented in this encounter Plan of Treatment Upcoming Encounters Date Type Department Care Team (Late st Contact Info) Description 07/25/2024 10:00 AM LODGING HOUSE KEEPER Office Visit [facility] - Endocrinology [address] [place] [phone] Yosi Bustamante MD [address] [place] [address] 2L [place] [address] 07/26/2024 10:00 AM LODGING HOUSE KEEPER Appointment [facility] [address] [place] [address] Neri Delgado MD [address] [place] [address] 07/26/2024 10:00 AM LODGING HOUSE KEEPER Office Visit [facility] ENT [address] [place] [phone] Myra Farmer, HEALTHCARE PROF [address] [place] [address] 2L [place] [address] 07/26/2024 11:15 AM LODGING HOUSE KEEPER Office Visit [facility] [address] [place] [phone] Neri Delgado MD [facility]5 [place] [address] 08/02/2024 2:20 PM LODGING HOUSE KEEPER Appointment [facility] [address] [place] [address] 08/02/2024 3:00 PM LODGING HOUSE KEEPER Office Visit [facility] - Hematology/Oncology [address] [place] [phone] Remi Beckett MD [address] [place] [phone] 08/18/2024 1:45 PM LODGING HOUSE KEEPER Office Visit [facility] - ENT [address] [place] [phone] Neri Delgado MD [facility] [place] [address] documented as of this encounter Visit Diagnoses Diagnosis Thyroid cancer (HCC) Malignant neoplasm of thyroid gland documented in this encounter Care Teams Bike Shop Manager Relationship Specialty Start Date End Date Taniya Grimes MD [address] [place] [address] 2L DIV OF [facility] [place] [address] PCP - General 07/01/20 05/10/22 Marylu Marie DO [address] [place] [address] 2L DIV OF [facility] [place] [address] Resident - PCP Student Resident 06/26/20 01/11/22 documented as of this encounter
--- OUTSIDE RECORDS SUMMARY | 2024-07-23 07:21 | XMS_ITS | Encounter Summary ---
Author Organization [facility] Health Address [address] [facility] [place] [address] Care Team Providers Care Direct Response Consultant Name Role Phone Marylu Marie DO Unavailable Taniya Grimes MD Primary Care Provider [phone] Reason for Visit * Reason Onset Date Comments Medication Prior Auth Request 01/13/2021 Encounter Details Date Type Department Care Team (Late st Contact Info) Description 01/13/2021 Telephone [facility] Metabolism [address] [place] [address] Jane Abdi, boiler/chiller technician Prior Auth Request Social History Tobacco Use [...] Telephone Encounter - Jane Abdi RN - 01/13/2021 8:19 AM CDT After multiple conversations with patient's insurance, pharmacy benefits, specialty pharmacy and Thyrogen representatives pt's insurance will only allow buy and bill for Thyrogen. Dr. Dianna arrietaaware via [employer]. documented in this encounter Plan of Treatment Upcoming Encounters Date Type Department Care Team (Late st Contact Info) Description 07/25/2024 10:00 AM FILLING AND STAPLING MACHINE OPERATOR Office Visit [facility] - Endocrinology [address] [place] [phone] Yosi Bustamante MD [address] [place] [address] 2L [place] [address] 07/26/2024 10:00 AM FILLING AND STAPLING MACHINE OPERATOR Appointment [facility] [address] [place] [address] Neri Delgado MD [address] [place] [address] 07/26/2024 10:00 AM FILLING AND STAPLING MACHINE OPERATOR Office Visit [facility] - ENT [address] [place] [phone] Myra aFrmer, CARTOGRAPHY SUPERVISOR [address] [place] [address] 2L [place] [address] 07/26/2024 11:15 AM FILLING AND STAPLING MACHINE OPERATOR Office Visit [facility] - ENT [address] [place] [phone] Neri Delgado MD [address] [place] [address] 08/02/2024 2:20 PM FILLING AND STAPLING MACHINE OPERATOR Appointment [facility] [address] [place] [address] 08/02/2024 3:00 PM FILLING AND STAPLING MACHINE OPERATOR Office Visit [facility] - Hematology/Oncology [address] [place] [phone] Remi Beckett MD [address] [place] [phone] 08/18/2024 1:45 PM FILLING AND STAPLING MACHINE OPERATOR Office Visit [facility] - ENT [address] [place] [address] Neri Delgado MD [address] [place] [address] documented as of this encounter Visit Diagnoses Not on filedocumented in this encounter Care Teams Direct Response Consultant Relationship Specialty Start Date End Date Taniya Grimes MD [address] [place] [address] 2L DIV OF [facility] [place] [address] PCP - General 07/01/20 05/10/22 Marylu Marie DO [address] [place] [address] 2L [place] [address] Resident - PCP Student Resident 06/26/20 01/11/22 documented as of this encounter
--- OUTSIDE RECORDS SUMMARY | 2024-07-23 07:21 | XMS_ITS | Encounter Summary ---
Author Organization [facility] Health Address [address] [facility] [address] Care Team Providers Care Residential Leasing Manager Name Role Phone Marylu Marie DO Unavailable Taniya Grimes MD Primary Care Provider Reason for Visit * Reason Onset Date Comments Medication Issue 01/29/2021 Perhaps medicat ion issue resolved. Encounter Details Date Type Department Care Team (Late st Contact Info) Description 01/29/2021 Telephone [facility] [address] [place] [address], [place] [phone] Yosi Fox MD [address] [place] [address] [place] [address] Medication Issue (Perhaps medication issue resolved. ) Social History Tobacco Use Types Packs/Day [...] Telephone Encounter - Yosi Fox MD - 01/29/2021 11:53 AM CDT PRESCRIPTION SENT TO PHARMACY YOSI OFX MD * Telephone Encounter - Fabian Bernstein - 01/29/2021 10:16 AM CDT Patient called today stating she has found a pharmacy to have her radioactive iodine medication sent to that is approved by her insurance. Patient is now requesting iodine Rx sent to the [facility] pharmacy that i've just entered into her pharmacy list on her chart. Patient states she's spend a week on the phone with her insurance and was given this information just recently. Can we send the Rx to [facility] in [place]? Please advise. Message Routed to Dr. Fox and Luh. ELE: 01-13-2021 documented in this encounter Plan of Treatment Upcoming Encounters Date Type Department Care Team (Late st Contact Info) Description 07/25/2024 10:00 AM NATURAL FABRICATOR Office Visit [facility] - Endocrinology [address] [place] [address], [place] [address] Yosi Fox MD [address] [place] [address] [place] [address] 07/26/2024 10:00 AM NATURAL FABRICATOR Appointment [facility] [address] [place] [address] Neri Delgado MD [address] [place] [address] 07/26/2024 10:00 AM NATURAL FABRICATOR Office Visit [facility] - ENT [address] [place] [phone] Myra Farmer, BANQUET COORDINATOR [address] [place] [address] 2L [place] [phone] 07/26/2024 11:15 AM NATURAL FABRICATOR [facility] [address] [place] [phone] Neri Delgado MD [address] [place] [address] 08/02/2024 2:20 PM NATURAL FABRICATOR Appointment [facility] [address] [place] [address] 08/02/2024 3:00 PM NATURAL FABRICATOR Office Visit [facility] Group - Hematology/Oncology [address] [place] [phone] Remi Beckett MD [address] [place] [phone] 08/18/2024 1:45 PM NATURAL FABRICATOR [facility] [address] [place] [phone] Neri Delgado MD [address] [place] [address] documented as of this encounter Visit Diagnoses Not on filedocumented in this encounter Care Teams Residential Leasing Manager Relationship Specialty Start Date End Date Taniya Grimes MD [address] [place] [address] 2L DIV [place] [phone] PCP - General 07/01/20 05/10/22 Marylu Marie DO [address] [place] [address] 2L [place] [address] Resident - PCP Student Resident 06/26/20 01/11/22 documented as of this encounter
--- OUTSIDE RECORDS SUMMARY | 2024-07-23 07:21 | XMS_ITS | Encounter Summary ---
Author Organization [facility] Health Address [address] [facility] [address] [place] [address] Care Team Providers Care Salesperson Handbags Name Role Phone Marylu Marie DO Unavailable [phone] Taniya Grimes MD Primary Care Provider Reason for Visit * Reason Comments Thyroid Problem HYPOTHYROIDISM Thyroid Cancer Thyroid Problem S/P THYROIDECTOMY General HYPOPARATHYROIDISM , HYPOCALCEMIA Encounter Details Date Type Department Care Team (Latest Contact Info) Description 01/13/2021 8:40 AM CDT Office Visit [facility] Endocrinology, Diabetes and Metabolism [address] [place] [address], [facility] [place] [phone] Yosi Bustamante MD [address] [place] [address] [place] [address] Postoperative hypothyroidism (Primary Dx); Thyroid cancer (HCC); [...] Sign Reading Time Taken Comments Blood Pressure 126/72 01/13/2021 9:21 AM CDT Pulse 74 01/13/2021 9:21 AM CDT Temperature 36.6 ??C (97.9 ??F) 01/13/2021 9:21 AM CD T Respiratory Rate - - Oxygen Saturation 98% 01/13/2021 9:21 AM CDT Inhaled Oxygen Concentration - - Weight 65.5 kg (144 lb 6.4 oz) 01/13/2021 9:21 A M CDT Height 157.5 cm (5' 2) 01/13/2021 9:21 AM CDT Body Mass Index 26.41 01/13/2021 9:21 AM CDT documented in this encounter Functional [...] this encounter Patient Instructions * Patient Instructions* Luis Reddy - 01/13/2021 9:13 AM CDT If you have an Insulin Pump, Meter or a Continuous Glucose Monitor, please BRING IT TO EVERY VISIT and present it to the Endo rooming staff when you arrive in clinic. APPOINTMENTS: option 1 or you can send a [employer] message. Normal business hours are from 8:00 am to 4:30 pm Wednesday through Wednesday. Fax# is [phone]. REFILL REQUESTS: contact your pharmacy who will reach out to us. If you have changes to your prescription, you will need to contact us directly at [phone] and select option 2 or send your [employer] message. We request that all prescription refills [...] next business day are given to the Sales And Service Officer physician precision millwright. Please call [phone] and identify yourself as a patient in our practice needing to speak to Sales And Service Officer. The landfill gas collection operator will contact the physician precision millwright. You can generally expect a return call within 30 minutes. On weekends, physicians are seeing hospitalized patients and there may be a longer wait. Test and laboratory results: Our practice typically reports lab and test results through letters orMyChart. Please allow 10 days from when your tests are completed to receive the results in the mail. Labs performed outside of [facility] facility, [facility] or [email or web address] may delay the results getting to us. Please contact the lab and request that they are faxed to us at [phone]. IF GOING TO [facility] or [facility]- TAKE LAB ORDER WITH YOU or they may turn you away [facility]'s missed appointment policy is: Patients with 3 consecutively missed appointments OR 3 missed appointments in a 12 month period will no longer be seen by Endocrinology. They will be asked to seek consultation outside of [facility]. A missed appointment is defined as: ??? Arriving to a scheduled appointment too late to be seen (Patients who arrive to clinic later than their scheduled appointment time may not be seen) ??? Not showing up or calling 24-48 hours prior to an appointment ??? An appointment cancelled less than 24 hours in advance ADDRESS: [address] [place] [address], [place] [address] Website: [email or web address] for additional information about [facility] and an interactive health encyclopedia. Pulse 74 Temp 97.9 ??F (36.6 ??C) (Oral) Ht 5' 2 (1.575 m) Wt 144 lb 6.4 oz (65.5 kg) SpO2 98% BMI26.41 kg/m2 PLAN Instructions for taking levothyroxine Brand name is preferred Take thyroid pill all by itself Take thyroid pill one hour before food or 2 to 3 hours after food Heat, humidity, and direct sunlight will cause a loss of potency Never store thyroid pill in the bathroom RETURN in three months Ultrasound of neck next visit LAB orders Standing order for TSH and Tg every 8 weeks LAB ORDERS STANDING ORDERS FOR PTH, CALCIUM EVERY 8 WEEKS PATIENT WILL BUY THYROGEN FROM SPECIALTY PHARMACY WHEN DRUG RECEIVED WE WILL SCHEDULE RADIOACTIVE IODINE ABLATION IF DRUG SENT TO YOU PUT IN REFRIGERATOR AND CALL US IF DRUG SENT TO US WE WILL CALL YOU TO SCHEDULE NUC MED AND LABS NEEDED LOW IODINE DIET FOR TWO WEEKS BEFORE RADIOACTIVE IODINE ABLATION LOW-IODINE DIET GUIDELINES - SUMMARY ThyCa: Thyroid [...] ?? Most chocolate (due to milk content). [place] powder and some dark chocolates are allowed. [...] without salt, except soybeans and (according to [facility] diet) afew other beans. ?? Unsalted nuts [...] chicken or beef, oil and vinegar dressing Commerce with Matzo crackers, plain peanut butter, jelly documented in this encounter Progress Notes * Yosi Bustamante MD - 01/13/2021 8:40 AM CDT HISTORY / PROGRESS NOTE Date: 01/13/2021 Chief Complaint or Purpose for Referral: HYPOTHYROIDISM THYROID CANCER HYPOPARATHYROIDISM HYPOCALCEMIA History of Present Illness: 60 YEAR OLD WHITE FEMALE ELE 10/14/2020 No dysphagia No dyspnea No dysphonia No change size of neck No neck pain or discomfort NECK TIGHTNESS (+) No nervousness No shakiness No palpitations Weight DECREASE Wt Readings from Last 3 Encounters: 01/13/21 144 lb 6.4 oz (65.5 kg) 11/19/20 155 lb 6.4 oz (70.5 kg) 11/04/20 155 lb (70.3 kg) BM daily No diarrhea constipation(+) nocturia 0-1 per night No edema No proximal muscle weakness APPETITE NOT GOOD , HAS TO FORCE SELF TO EAT NO NAUSEA NO VOMITING HOSP FOR INCREASED CALCIUM AND RENAL PROBLEMS RECENTLY ALL CALCIUM AND VITAMIN D STOPPED UNABLE TO SEE RESULTS OF HOSP OR OUTSIDE LABS LOOKED IN CARE EVERY WHERE AND MEDIA ASKED PATIENT TO GET RECORDS FOR US THYROGEN IS BUY AND BILL ACCORDING TO [place] PATIENT SAYS SHE WILL PAY FOR MEDICATION UP [facility] HAS MED AND APPROVAL LETTER IS IN MEDIA LAB Results for MARIFER BRISA R ( ) as of 01/12/2021 10:24 Ref. Range 03/07/2020 15:19 08/21/2020 04:25 09/11/2020 14:13 11/11/2020 15:49 TSH Latest Ref Range: 0.350 - 4.940 uIU/mL 1.520 2.526 0.900 T4 Free Latest Ref Range: 0.7 - 1.5 ng/dL 1.1 Thyroglobulin by ANTONIETA Latest Ref Range: 1.5 - 38.5 ng/mL 192.2 (H) 0.9 (L) Thyroglobulin Antibody Latest Ref Range: 0.0 - 0.9 IU/mL <1.0 <1.0 Results for BRIAS CAICEDO ( ) as of 01/12/2021 10:24 Ref. Range 08/26/2020 00:41 08/27/2020 05:48 08/28/2020 05:49 08/29/2020 04:08 11/11/2020 15:49 PTH Intact Latest Ref Range: 8.0 - 77.0 pg/mL 4.4 (L) 8.2 10.7 10.1 <4.0 (L) Results for BRISA CAICEDO ( ) as of 01/12/2021 10:24 Ref. Range 08/29/2020 04:08 09/11/2020 14:13 11/11/2020 15:49 Sodium Latest Ref Range: 136 - 145 mmol/L 142 143 143 Potassium Latest Ref Range: 3.5 - 4.5 mmol/L 3.9 3.9 3.4 (L) Chloride Latest Ref Range: 98 - 107 mmol/L 103 104 104 CO2 Latest Ref Range: 22 - 29 mmol/L 27 29 27 Anion Gap Latest Ref Range: 8 - 18 16 14 15 BUN Latest Ref Range: 7 - 26 mg/dL 11 13 21 Creatinine Latest Ref Range: 0.6 - 1.2 mg/dL 0.7 0.7 0.8 eGFR Latest Ref Range: >60 mL/min/1.73 m2 >60 >60 >60 Glucose Latest Ref Range: 70 - 115 mg/dL 101 91 132 (H) Calcium Latest Ref Range: 8.4 - 10.2 mg/dL 8.0 (L) 8.5 9.8 Ionized Calcium Whole Blood Latest Units: mmol/L 1.05 Adjusted Ionized Calcium Latest Ref Range: 1.19 - 1.34 mmol/L 1.07 (L) Magnesium Latest Ref Range: 1.6 - 2.6 mg/dL 2.3 Phosphorus Latest Ref Range: 2.3 - 4.7 mg/dL 4.9 (H) 5.5 (H) 4.5 BUN/Creatinine Ratio Latest Ref Range: 7 - 23 16 19 26 (H) Albumin Latest Ref Range: 3.4 - 5.0 g/dL 2.9 (L) 3.0 (L) 4.1 pH Whole Blood Latest Ref Range: 7.35 - 7.45 7.44 Osmolality Calculated Latest Ref Range: 270 - 300 mOsm/kg 294 296 301 (H) Vitamin D, 25 Hydroxy Latest Ref Range: See comment: ng/mL 53.0 Collected: 04/18/2020 ??4:07 PM Status: Final result ?Visible to patient: No (not released) Dx: Thyroid nodule 0 Result Notes Component ?? Specimen Adequacy Adequate cellularity for evaluation. Final Diagnosis Thyroid nodule, right, US-FNA: - ??Benign - ??Consistent with benign follicular nodule ?? Collected: 08/01/2020 ??2:51 PM Status: Final result ?Visible to patient: No (not released) Dx: Thyroid nodule 0 Result Notes Component ?? Specimen Adequacy Adequate cellularity for evaluation. Final Diagnosis Thyroid, right lobe, fine needle aspiration (A): - ??Final diagnosis: Suspicious for a follicular neoplasm (TBSRTC Category IV), see comment. at ??3:26 PM ?? Collected: 08/19/2020 ??9:43 AM Status: Edited Result - FINAL ?Visible to patient: No (not released) Dx: Hoarseness; Tracheal mass; Paralysis ... 0 Result Notes Component ?? Final Diagnosis Lymph nodes, left level 2A, dissection (A): - ??No evidence of malignancy in 14 nodes (0/14) ?? Lymph nodes, left level 3, dissection (B): - ??Metastatic carcinoma in 1 of 14 nodes (1/14) ?? Lymph nodes, left level 4&5, dissection (C): - ??Metastatic carcinoma in 2 of 13 nodes (2/13) ?? Lymph nodes, right level 3, dissection (D): - ??Metastatic carcinoma in 2 of 5 nodes (2/5) ?? Lymph node, right level 2A, dissection (E): - ??Metastatic carcinoma in 2 of 22 nodes (2/22) - ??Positive for extranodal extension ?? Lymph node, right level 4/5, dissection (F): - ??Metastatic carcinoma in 1 of 12 nodes (1/12) - ??Positive for extranodal extension ?? 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 Thyroid, left lobe, hemithyroidectomy (H): - ??Papillary thyroid carcinoma with follicular architecture, multifocal - ??Nodular hyperplasia ?? Neck, left central mass, excision (I; including FSI): - ??Normocellular parathyroid tissue ?? Nerve, revision right recurrent, excision (J; including FSJ): - ??Nerve and soft tissues with no evidence of malignancy ?? Neck, central mass, dissection (K): - ??Metastatic carcinoma in 2 of 3 nodes (2/3) ?? Soft tissue, query parathyroid, excision (L; including FSL): - ??Benign fibrovascular and neural tissues ?? Thyroid, right lobe with tracheal wall, thyroidectomy (M; including FSM1-2): - ??Papillary thyroid carcinoma with tall cell features and frequent follicular architecture, with extrathyroidal extension - ??Tumor approaches inked margins - ??Superior and inferior tracheal margins involved by tumor; tumor involves tracheal mucosa - ??Benign parathyroid tissue ?? Trachea, left tracheal wall, excision (N; including FSN1): - ??No evidence of malignancy ?? Trachea, right superior tracheal wall, excision (O; including FSO1): - ??Submucosal tissue involved by tumor ?? at ??2:35 PM ? Synoptic Report THYROID GLAND 8th Edition - Protocol posted: 08/30/2019 THYROID GLAND: RESECTION - All Specimens ? Clinical History ?? No known radiation exposure SPECIMEN Procedure ?? Total thyroidectomy TUMOR Tumor Focality ?? Multifocal Tumor Characteristics ? Tumor Site ?? Right lobe ? Left lobe Histologic Type ?? Papillary carcinoma Tumor Size ?? Greatest Dimension (Centimeters): 3.2 cm Extrathyroidal Extension ?? Present, clinical / macroscopic AND histologically confirmed ? Invading subcutaneous soft tissues, larynx, trachea, esophagus or recurrent laryngeal nerve (i.e., pT4a) Angioinvasion (vascular invasion) ?? Present Lymphatic Invasion ?? Present Perineural Invasion ?? Present Margins ?? Involved by carcinoma Site(s) of Involvement ?? right tracheal margins LYMPH NODES Number of Lymph Nodes Involved ?? 10 [place]essa Levels Involved ?? Level ? Right Lateral Level II ? Right Lateral Level III ? Right Lateral Level IV ? Left Lateral Level III ? Left Lateral Level IV ? Left Lateral Level V Size of Largest Metastatic Deposit (Centimeters) ?? 2.4 cm Extranodal Extension (JADON) ?? Present Number of Lymph Nodes Examined ?? 83 [place]essa Levels Examined ?? Level ? Right Lateral Level II ? Right Lateral Level III ? Right Lateral Level IV ? Right Lateral Level V ? Left Lateral Level II ? Left Lateral Level III ? Left Lateral Level IV ? Left Lateral Level V PATHOLOGIC STAGE CLASSIFICATION (pTNM, AJCC 8th Edition) ? Primary Tumor (pT) ?? pT4a Regional Lymph Nodes (pN) ?? pN1b . ?? Resulting Agency [facility] ?? Specimen Collected: 08/19/20 ??9:43 AM Last Resulted: 09/03/20 ??7:23 AM ?? OUTSIDE RECORDS RECEIVED ON 02/14/2021 [facility] ER 12/11/2020 CC FALL AND LEFT LEG PAIN HISTORY OF CHRONIC HIP AND BACK PAIN FELL AND PAIN WORSE WEAKNESS AND SHAKINESS AND NEAR SYNCOPE DAY OF ER VISIT MEDS INCLUDED CALCITRIOL 0.5 BID, CACO3 PLUS D TWO TAB TID, CA -MG-ZINC THREE TAB TID L-T4 112, PHX SMOKER , FH X DM (+) MOTHER PE A & O X 3 ASSESSMENT [facility]CALCEM[facility] CBC WBC 12.5, H/H 13.4/41.2, PLT CT 349 BMP NA 137,K 4.1, BUN 52' CREAT 3.6 GLUCOSE 105 CALCIUM 17.1 LFT NORMAL 01/10/2021 CBC NORMAL WBC 8.7 H/H 12.7/39.[address] 344 NA 141 K 4.9 CL 106 CO2 25 BUN 16 CREAT 1.00 GLUCOSE 93 CALCIUM 8.3 LFT NORMAL ?? (Brief 1-3; Ext. >4) Past Medical History: [...] 07/22/1973 Smokeless tobacco: Never Used Tobacco comment: 1 cig a day Vaping Use Vaping Use: [...] off due to leg pain Ambulates with cane due to hip pain L Social Determinants of Health Financial Resource Strain: ? Difficulty of Paying Living Expenses: Food Insecurity: ? Worried About Running Out of Food in the Last Year: ? Ran Out of Food in the Last Year: Transportation Needs: ? Lack of Transportation (Medical): ? Lack of Transportation (Non-Medical): Physical Activity: ? Days of Exercise per Week: ? Minutes of Exercise per Session: Stress: ? Feeling of Stress : Social Connections: ? Frequency of Communication with Friends and Family: ? Frequency of Social Gatherings with Friends and Family: ? Attends Caodaism Services: ? Active Member of Clubs or Organizations: ? Attends Club or Organization Meetings: ? Marital Status: Intimate Partner Violence: ? Fear of Current or Ex-Partner: ? Emotionally Abused: ? Physically Abused: ? Sexually Abused: Current Outpatient Medications: Acetaminophen (TYLENOL 8 HOUR ARTHRITIS PAIN PO), Take by mouth as needed , Disp: , Rfl: atorvastatin (LIPITOR) 40 MG tablet, TAKE 1 TABLET BY MOUTH EVERYDAY AT BEDTIME, Disp: 30 tablet, Rfl: 11 calcitriol (ROCALTROL) 0.5 MCG capsule, Take 1 (one) capsule by mouth 2 times daily Reasons: Low Amount of Calcium in the Blood, Disp: 60 capsule, Rfl: 11 xbqqalc-hejxwbfzf-xdbi 333-133-5 MG tablet, Take 1 (one) tablet by mouth 3 times daily, Disp: , Rfl: calcium-vitamin D (OS-YANNICK 500 + D) 500-200 mg-unit tablet, Take 1 (one) tablet by mouth 3 times daily with meals, Disp: 120 tablet, Rfl: 3 cetirizine (ZYRTEC) 10 MG tablet, Take 1 (one) tablet by mouth once daily, Disp: 30 tablet, Rfl: 5 clobetasol (TEMOVATE) 0.05 % ointment, Apply to affected area 2 times daily, Disp: 60 g, Rfl: 0 clonazePAM (KLONOPIN) 0.5 MG tablet, Take 0.5 mg by mouth 2 times daily , Disp: , Rfl: famotidine (PEPCID) 20 MG tablet, Take 20 mg by mouth 2 times daily as needed, Disp: , Rfl: fluticasone propionate (FLONASE) 50 MCG/ACT nasal spray, [place] 2 sprays into each nostril, Disp: 16g, Rfl: 0 gabapentin (NEURONTIN) 300 MG capsule, TAKE 1 CAPSULE BY MOUTH THREE TIMES A DAY, Disp: 90 capsule,Rfl: 5 PNPEUQ-AVWAJMXSF-RMB-C-HYAL PO, Take 1 tablet by mouth 3 times daily, Disp: , Rfl: levothyroxine (SYNTHROID) 112 MCG tablet, Take 1 (one) tablet by mouth once daily, Disp: 90 tablet,Rfl: 4 meloxicam (MOBIC) 7.5 MG tablet, TAKE 1 TABLET BY MOUTH EVERY DAY, Disp: 60 tablet, Rfl: 2 [place]-3 Fatty Acids (FISH OIL) 1000 MG capsule, Take 1,000 mg by mouth 3 times daily with meals., Disp: , Rfl: pantoprazole EC (PROTONIX) 40 MG tablet, TAKE 1 TABLET BY MOUTH DAILY FOR STOMACH, Disp: 30 tablet,Rfl: 5 PARoxetine (PAXIL) 40 MG tablet, , Disp: , Rfl: 2 thyrotropin tayo (THYROGEN) injection, Inject 0.9 mg into muscle every 24 hours for 2 days, Disp: 2mL, Rfl: 0 traZODone (DESYREL) 50 MG tablet, Take 50 mg by mouth at bedtime, Disp: , Rfl: vitamin E (TOCOPHERYL) 400 UNIT capsule, Take 400 Units by mouth TID., Disp: , Rfl: No current facility-administered medications for this visit. No Known Allergies Physical Exam: Constitutional: Vital Signs: BP 126/72 (BP SITE: LEFT ARM, BP POSITION: SITTING, BP CUFF SIZE: 11) Pulse 74 Temp 97.9 ??F (36.6 ??C) (Oral) Ht 5' 2 (1.575 m) Wt 144 lb 6.4 oz (65.5 kg) SpO2 98% BMI 26.41 kg/m2 Well developed, well nourished, white female, no acute distress, alert and oriented, normocephalic Appearance: WNL Eyes: Conjunctiva/lids WNL and EOM Intact ENT, Mouth: Hearing WNL and External ear/nose WNL Neck: No masses, symmetrical and Thyroid not enlarged Resp.:Effort nonlabored and Ausculation WNL CVS: S1, S2; no murmurs, No carotid bruits, pulse wnl and Edema/varicosities absent Chest: NOT EXAMINED GI/Abd: NOT EXAMINED : NOT APPLICABLE Lymph: Neck WNL and SURG SCAR ANT AND LATERAL NECK, NO PALPABLE NODES OR THYROID MS: Station and gait WNL, Stable without dislocation, laxity, ROM without pain, no contracture, Muscle strength and tone WNL and USES WALKER Areas Assessed: Head/neck, R/L lower extremities, R/L upper extremities, Digits/nails and Inspection/palpatation of [...] uncertain behavior of skin Other seborrheic keratosis PLAN Instructions for taking levothyroxine Brand name is preferred Take thyroid pill all by itself Take thyroid pill one hour before food or 2 to 3 hours after food Heat, humidity, and direct sunlight will cause a loss of potency Never store thyroid pill in the bathroom RETURN in three months Ultrasound of neck next visit LAB orders Standing order for TSH and Tg every 8 weeks LAB ORDERS STANDING ORDERS FOR PTH, CALCIUM EVERY 8 WEEKS PATIENT WILL BUY THYROGEN FROM SPECIALTY PHARMACY WHEN DRUG RECEIVED WE WILL SCHEDULE RADIOACTIVE IODINE ABLATION IF DRUG SENT TO YOU PUT IN REFRIGERATOR AND CALL US IF DRUG SENT TO US WE WILL CALL YOU TO SCHEDULE NUC MED AND LABS NEEDED LOW IODINE DIET FOR TWO WEEKS BEFORE RADIOACTIVE IODINE ABLATION LOW-IODINE DIET GUIDELINES - SUMMARY ThyCa: Thyroid [...] ?? Most chocolate (due to milk content). [place] powder and some dark chocolates are allowed. [...] without salt, except soybeans and (according to [facility] diet) afew other beans. ?? Unsalted nuts [...] chicken or beef, oil and vinegar dressing Commerce with Matzo crackers, plain peanut butter, jelly Postoperative hypothyroidism - Plan: TSH, THYROGLOBULIN REFLEX PROFILE, TSH, THYROGLOBULIN REFLEX PROFILE, PTH INTACT+CALCIUM, RENAL FUNCTION PANEL, PTH INTACT+CALCIUM, RENAL FUNCTION PANEL, levothyroxine (SYNTHROID) 112 MCG tablet Thyroid cancer - Plan: TSH, THYROGLOBULIN REFLEX PROFILE, TSH, THYROGLOBULIN REFLEX PROFILE, PTH INTACT+CALCIUM, RENAL FUNCTION PANEL, PTH INTACT+CALCIUM, RENAL FUNCTION PANEL Hypocalcemia - Plan: TSH, THYROGLOBULIN REFLEX PROFILE, TSH, THYROGLOBULIN REFLEX PROFILE, PTH INTACT+CALCIUM, RENAL FUNCTION PANEL, PTH INTACT+CALCIUM, RENAL FUNCTION PANEL Other hypoparathyroidism - Plan: TSH, THYROGLOBULIN REFLEX PROFILE, TSH, THYROGLOBULIN REFLEX PROFILE, PTH INTACT+CALCIUM, RENAL FUNCTION PANEL, PTH INTACT+CALCIUM, RENAL FUNCTION PANEL Yosi Bustamante MD Professor of Internal Medicine Division of Endocrinology Department of Internal Medicine documented in this encounter Plan of Treatment Upcoming Encounters Date Type Department Care Team (Late st Contact Info) Description 07/25/2024 10:00 AM TYPEWRITER ALIGNER Office Visit [facility] - Endocrinology [address] [place] [address], [facility] [place] [phone] Yosi Bustamante MD [address] [place] [address] [place] [address] 07/26/2024 10:00 AM TYPEWRITER ALIGNER Appointment [facility] DIAGNOSTIC RAD [address] [place] [address] Neri Delgado MD [address] [place] [address] 07/26/2024 10:00 AM TYPEWRITER ALIGNER Office Visit [facility] - ENT [address] [place] [phone] Myra Farmer, KIDNEY PULLER [address] [place] [address] [place] [phone] 07/26/2024 11:15 AM TYPEWRITER ALIGNER Office Visit [facility] - ENT [address] [place] [phone] Neri Delgado MD [address] [place] [address] 08/02/2024 2:20 PM TYPEWRITER ALIGNER Appointment [facility]ION [facility]ENTER [address] [place] [phone] 08/02/2024 3:00 PM TYPEWRITER ALIGNER Office Visit [facility] - Hematology/Oncology [address] [place] [phone] Remi Beckett MD [address] [place] [phone] 08/18/2024 1:45 PM TYPEWRITER ALIGNER Office Visit [facility] - ENT [address] [place] [phone] Neri Delgado MD [address] [place] [phone] Scheduled Orders Name Type Priority Associated Diagnoses Orde r Schedule TSH Lab Routine Postoperative hypothyroidism Thyroid cancer (HCC) Hypocalcemia Other hypoparathyroidism E-8Weeks for 6 Occurrences starting 01/13/2021 until 02/13/2022 PTH INTACT+CALCIUM Lab Routine Postoperative hypothyroidism Thyroid cancer (HCC) Hypocalcemia Other hypoparathyroidism E-8Weeks for 6 Occurrences starting 01/13/2021 until 03/05/2022 documented as of this encounter Procedures Procedure Name Priority Date/Time Associated Diagnosis Comments THYROGLOBULIN REFLEX PROFILE Routine 02/14/2021 12:30 PM CDT Postoperative hypothyroidism Thyroid cancer (HCC) Hypocalcemia Other hypoparathyroidism THYROGLOBULIN BY ANTONIETA RFLXED Routine 02/14/2021 12:30 PM CDT Postoperative hypothyroidism Thyroid cancer (HCC) Hypocalcemia Other hypoparathyroidism RENAL FUNCTION PANEL Routine 02/14/2021 12:30 PM CDT Postoperative hypothyroidism Thyroid cancer (HCC) Hypocalcemia Other hypoparathyroidism documented in this encounter Results * THYROGLOBULIN BY ANTONIETA RFLXED (02/14/2021 12:30 PM CDT) Thyroglobulin by ANTONIETA 1.9 1.5 - 38.5 ng/mL 02/18/2021 9:10 AM CDT [facility] ([facility]) Comment: According to the National [...] is 0.1 ng/mL Thyroglobulin measured by Lisbet Atlas Immunometric Assay Blood BLOOD SPECIMEN / Unknown Lab Venipuncture / Unknown 02/14/2021 12:30 PM CDT 02/14/2021 12:36 PM CDT Narrative [facility] ([facility]) - 02/18/2021 9:10 AM CDT Performed at: ??01 - [facility] [address] ??[id number] Crystallographer: Oral Melendez PhD, Phone: ??[phone] Yosi Bustamante MD LAB - CHEMISTRY ORD ERABLES [facility]) [address] [place] [address], [facility] * (ABNORMAL) RENAL FUNCTION PANEL (02/14/2021 12:30 PM CDT) BUN 16 7 - 26 mg/dL 02/14/2021 1:13 PM [facility] Creatinine 0.79 0.56 - 0.96 mg/dL 02/14/2021 1:13 PM [facility] Sodium 143 136 - 145 mmol/L 02/14/2021 1:13 PM [facility] Potassium 4.7(H) 3.5 - 4.5 mmol/L 02/14/2021 1:13 PM [facility] Chloride 110(H) 98 - 107 mmol/L 02/14/2021 1:13 PM [facility] CO2 24 22 - 29 mmol/L 02/14/2021 1:13 PM [facility] Glucose 100 70 - 115 mg/dL 02/14/2021 1:13 PM [facility] Albumin 4.0 3.4 - 5.0 g/dL 02/14/2021 1:13 PM [facility] Calcium 8.0(L) 8.4 - 10.2 mg/dL 02/14/2021 1:13 PM [facility] Phosphorus 4.3 2.9 - 5.1 mg/dL 02/14/2021 1:13 PM [facility] Anion Gap 14 8 - 18 02/14/2021 1:13 PM [facility] BUN/Creatinine Ratio 20 7 - 23 02/14/2021 1:13 PM [facility] Osmolality Calculated 297 270 - 300 mOsm/kg 02/14/2021 1:13 PM [facility] eGFR by CKD-EPI 80(L) >=90 mL/min/1.7 3 m2 02/14/2021 1:13 PM [facility] Blood BLOOD SPECIMEN / Unknown Lab Venipuncture / Unknown 02/14/2021 12:30 PM CDT 02/14/2021 12:41 PM CDT Yosi Bustamante MD LAB - CHEMISTRY ORD ERABLES [facility] [address] [place] [address], [facility] [phone] * THYROGLOBULIN REFLEX PROFILE (02/14/2021 12:30 PM CDT) Thyroglobulin Antibody <1.0 0.0 - 0.9 IU/mL 02/18/2021 9:10 AM CDT [facility] ([facility]) Comment:Thyroglobulin Antibo dy measured by Lisbet Marcos Methodology Blood BLOOD SPECIMEN / Unknown Lab Venipuncture / Unknown 02/14/2021 12:30 PM CDT 02/14/2021 12:36 PM CDT Narrative [facility] ([facility]) - 02/18/2021 9:10 AM CDT Performed at: ??01 - [facility] [address] [place], [place] ??[id number] Crystallographer: Oral Melendez PhD, Phone: ??[phone] Yosi Bustamante MD LAB - CHE[facility]Y [facility]D ERABLES [facility] ([facility]) [address] [place] [address] documented in this encounter Visit Diagnoses Diagnosis Postoperative hypothyroidism- Primary Postsurgical hypothyroidism Thyroid cancer (HCC) Malignant neoplasm of thyroid gland Hypocalcemia Other hypoparathyroidism (HCC) documented in this encounter Care Teams Salesperson Handbags Relationship Specialty Start Date End Date Taniya Grimes MD [address] [facility] 2L DIV OF [facility] [place] [address] PCP - General 07/01/20 05/10/22 Marylu Marie DO [address] [facility] 2L DIV OF [facility] [place] [address] Resident - PCP Student Resident 06/26/20 01/11/22 documented as of this encounter
--- OUTSIDE RECORDS SUMMARY | 2024-07-23 07:22 | XMS_ITS | Encounter Summary ---
Author Organization [facility] Health Address [address] [place] [address] Care Team Providers Care Windlace Machine Operator Name Role Phone Marylu Marie DO Unavailable [phone] Taniya Grimes MD Primary Care Provider Encounter Details Date Type Department Care Team (Latest Contact Info) Description 11/19/2020 11:07 AM CDT - 11/19/2020 11:59 PM CDT Hospital Encounter [facility] DIAGNOSTIC RAD [facility] [address] [facility] [place] [address] Cesar Brooks MD [address] [id number] Discharge Disposition: Home or Self Care Social [...] have Coronavirus / COVID-19? No / Unsure 11/11/2020 2:32 PM CDT documented as of this encounter [...] (one) tablet by mouth at bedtime 06/25/2020 Acetaminophen (TYLENOL 8 HOUR ARTHRITIS PAIN PO) Take by mouth as needed 01/13/2021 albuterol HFA (PROVENTIL;VENTOLIN;PROAI R) 108 (90 Base) MCG/ACT inhaler Inhale 2 puffs by mouth every 4 hours as needed 07/05/2020 12/09/2020 atorvastatin (LIPITOR) 40 MG tabletIndications:Hyperli pidemia, unspecified hyperlipidemia type TAKE 1 TABLET BY MOUTH EVERYDAY AT BEDTIME 30 tablet 11 09/13/2020 07/22/2021 B Complex Vitamins (VITAMIN B COMPLEX) tablet Take by mouth DAILY. 11/19/2016 12/09/2020 calcitriol (ROCALTROL) 0.5 MCG capsuleIndications:Hypoca lcemia Take 1 (one) capsule by mouth 2 times daily Reasons: Low Amount of Calcium in the Blood 60 capsule 11 11/06/2020 05/22/2021 xapeegl-uoojgcmwt-udwr 333-133-5 MG tabletIndications:Other hypoparathyroidism (HCC) Take 1 (one) tablet by mouth 3 times daily 10/14/2020 01/13/2021 calcium-vitamin D (OS-YANNICK 500 + D) 500-200 mg-unit tabletIndications:Other hypoparathyroidism (HCC) Take 1 (one) tablet by mouth 3 times daily with meals 120 tablet 3 10/14/2020 01/13/2021 celecoxib (CELEBREX) 200 MG capsule Take 1 (one) capsule by mouth once daily 90 capsule 3 11/19/2020 12/06/2020 cetirizine (ZYRTEC) 10 MG tabletIndications:Allergi c rhinitis, unspecified seasonality, unspecified trigger Take 1 (one) tablet by mouth once daily 30 tablet 5 09/05/2020 01/13/2021 clobetasol (TEMOVATE) 0.05 % ointment Apply to affected area 2 times daily 60 g 12/26/2019 01/13/2021 clonazePAM (KLONOPIN) 0.5 MG tablet Take 0.5 mg by mouth 2 times daily 03/29/2019 05/22/2021 fluticasone propionate (FLONASE) 50 MCG/ACT nasal spray [place] 2 sprays into each nostril 16 g 09/06/2019 04/11/2021 gabapentin (NEURONTIN) 300 MG capsuleIndications:Primar y osteoarthritis of left hip TAKE 1 CAPSULE BY MOUTH THREE TIMES A DAY 90 capsule 5 09/11/2020 03/25/2021 OWJKUF-PVCUTFITW-QRL-C-HY AL PO Take 1 tablet by mouth 3 times daily 06/13/2023 levothyroxine (SYNTHROID) 112 MCG tabletIndications:Hypothy roidism,Malignant Neoplasm of Thyroid Take 1 (one) tablet by mouth daily before breakfast Reasons: Underactive Thyroid, Cancer of Thyroid 30 tablet 11 10/14/2020 12/09/2020 meloxicam (MOBIC) 7.5 MG tablet TAKE 1 TABLET BY MOUTH EVERY DAY 60 tablet 2 07/16/2020 01/13/2021 [place]-3 Fatty Acids (FISH OIL) 1000 MG capsule Take 1,000 mg by mouth 3 times daily with meals. 11/19/2016 05/22/2021 oxyCODONE, immediate release, (ROXICODONE) 5 MG tablet Take 1 (one) tablet by mouth every 4 hours as needed for Pain 48 tablet 08/29/2020 12/09/2020 pantoprazole EC (PROTONIX) 40 MG tabletIndications:Gastroe sophageal reflux disease, unspecified whether esophagitis present TAKE 1 TABLET BY MOUTH DAILY FOR STOMACH 30 tablet 5 10/07/2020 04/22/2021 senna (SENOKOT) 8.6 MG tablet Take 1 (one) tablet by mouth once daily as needed for Constipation 45 tablet 08/29/2020 12/09/2020 thyrotropin tayo (THYROGEN) injectionIndications:Post operative hypothyroidism,Thyroid cancer (HCC) Inject 0.9 mg into muscle every 24 hours for 2 days 2 mL 10/14/2020 01/13/2021 traMADol (ULTRAM) 50 MG tabletIndications:Hip pain Take one tablet up to 2-3 times a day NEEDED for pain 12 tablet 10/11/2020 12/09/2020 vitamin E (TOCOPHERYL) 400 UNIT capsule Take 400 Units by mouth TID. 11/19/2016 01/13/2021 documented as of this encounter Plan of Treatment Upcoming Encounters Date Type Department Care Team (Late st Contact Info) Description 07/25/2024 10:00 AM WARNING ANALYST [facility] [address] [place] [phone] Yosi Bustamante MD [address] [place] [address] 2L [place] [address] 07/26/2024 10:00 AM WARNING ANALYST Appointment [facility] DIAGNOSTIC RAD [address] [place] [address] Neri Delgado MD [address] [place] [address] 07/26/2024 10:00 AM WARNING ANALYST Office Visit [facility] - ENT [address] [place] [phone] Myra Farmer, BACK UP WORKER [address] [place] [address] 2L [place] [address] 07/26/2024 11:15 AM WARNING ANALYST Office Visit [facility] - ENT [address] [place] [phone] Neri Delgado MD [address] [place] [address] 08/02/2024 2:20 PM WARNING ANALYST Appointment [facility] INFUSION CENTER [address] [place] [address] 08/02/2024 3:00 PM WARNING ANALYST Office Visit [facility] - Hematology/Oncology [address] [place] [phone] Remi Beckett MD [address] [place] [phone] 08/18/2024 1:45 PM WARNING ANALYST Office Visit [facility] - ENT [address] [place] [phone] Neri Delgado MD [address] [place] [address] documented as of this encounter Procedures Procedure Name Priority Date/Time Associated Diagnosis Comments XR HIP LEFT 2VW OR MORE Routine 11/19/2020 11:38 AM CDT Primary osteoarthritis of left hip documented in this encounter Results * XR HIP LEFT 2VW OR MORE (11/19/2020 11:38 AM CDT) Anatomical Region Laterality Modality Pelvis, Lower Extremity [...] is seen. There is severe arthritis with cyln-mo-dkwu contact superiorly, subchondral cysts, sclerosis, and osteophytes. [...] is seen. There is severe arthritis with enur-mm-zorg contact superiorly, subchondral cysts, sclerosis, and osteophytes. [...] documented in this encounter Visit Diagnoses Diagnosis Primary osteoarthritis of left hip Primary localized osteoarthrosis, pelvic region and thigh documented in this encounter Care Teams Windlace Machine Operator Relationship Specialty Start Date End Date Taniya Grimes MD [address] 2L DIV OF [facility] [place] [address] PCP - General 07/01/20 05/10/22 Marylu Marie DO [address] 2L DIV OF [facility] [place] [address] Resident - PCP Student Resident 06/26/20 01/11/22 documented as of this encounter
--- OUTSIDE RECORDS SUMMARY | 2024-07-23 07:22 | XMS_ITS | Encounter Summary ---
Author Organization [facility] Address [address] [facility] [place] [address] Care Team Providers Care Patient Portal Representative Name Role Phone Marylu Marie DO Unavailable Taniya Grimes MD Primary Care Provider [phone] Reason for Visit * Reason Onset Date Comments Medication Problem 12/06/2020 Encounter Details Date Type Department Care Team (Late st Contact Info) Description 12/06/2020 Telephone [facility] [address] [place] [address] Cesar Brooks MD [address] [phone] Medication Problem Social History Tobacco Use Types Packs/Day Years [...] encounter Miscellaneous Notes * Telephone Encounter - Nohelia Jaffe MA - 12/06/2020 10:55 AM CDT Patient would like a call back from the nurse or Dr. Brooks to discuss her medication side effectsfrom celecoxib. Patient's side effects are ...... Nausea Upset stomach Fatigue Cough No appetite Hot & cold flashes Memory loss. Please advise. documented in this encounter Plan of Treatment Upcoming Encounters Date Type Department Care Team (Late st Contact Info) Description 07/25/2024 10:00 AM PONY WORKER Office Visit [facility] - Endocrinology [address] [place] [phone] Yosi Bustamante MD [address] [place] [address] 2L [place] [address] 07/26/2024 10:00 AM PONY WORKER Appointment [facility] DI[facility]NOSTIC RAD [address] [place] [phone] Neri Delgado MD [address] [place] [address] 07/26/2024 10:00 AM PONY WORKER Office Visit [facility] - ENT [address] [place] [phone] Myra Farmer, LEASE PURCHASE DRIVER [address] [place] [address] 2L [place] [phone] 07/26/2024 11:15 AM PONY WORKER [facility] [address] [place] [phone] Neri Delgado MD [facility] [place] [address] 08/02/2024 2:20 PM PONY WORKER Appointment [facility] [address] [place] [address] 08/02/2024 3:00 PM PONY WORKER Office Visit [facility] - Hematology/Oncology [address] [place] [phone] Remi Beckett MD [address] [place] [phone] 08/18/2024 1:45 PM PONY WORKER Office Visit [facility] - ENT [address] [place] [phone] Neri Delgado MD [address] [place] [phone] documented as of this encounter Visit Diagnoses Not on filedocumented in this encounter Care Teams Patient Portal Representative Relationship Specialty Start Date End Date Taniya Grimes MD [address] [place] [address] 2L DIV OF [facility] [place] [address] PCP - General 07/01/20 05/10/22 Marylu Marie DO [address] [place] [address] 2L DIV OF [facility] [place] [address] Resident - PCP Student Resident 06/26/20 01/11/22 documented as of this encounter
--- OUTSIDE RECORDS SUMMARY | 2024-07-23 07:22 | XMS_ITS | Encounter Summary ---
Author Organization [facility] Health Address [address] [place] [address] Care Team Providers Care Launch Steward Name Role Phone Marylu Marie DO Unavailable Taniya Grimes MD Primary Care Provider [phone] Reason for Visit * Reason Onset Date Comments Med Question 12/09/2020 Encounter Details Date Type Department Care Team (Late st Contact Info) Description 12/09/2020 Telephone [facility] Endocrinology, Diabetes and Metabolism [address] [place] [address], [place] [phone] Yosi Bustamante MD [address] [place] [address] of [place], [place] [phone] Med Question Social History Tobacco Use Types [...] Telephone Encounter - Jane Abdi RN - 12/09/2020 12:01 PM CDT Fax received [facility] stating pt's Thyrogen was approved for one fill; however, pt called stating she was told by a rep at [facility] that the Thyrogen can only be obtained via buy and bill. Message sent to rep from [facility] asking to help figure out where medication should be dispensed from and if it is 100% covered or can only be buy and bill (which this office is unable to do). Waiting for a reply and will update provider and pt once received. documented in this encounter Plan of Treatment Upcoming Encounters Date Type Department Care Team (Late st Contact Info) Description 07/25/2024 10:00 AM WATCH TRAIN INSPECTOR Office Visit [facility] - Endocrinology [address] [place] [phone] Yosi Bustamante MD [address] [place] [address] [place] [address] 07/26/2024 10:00 AM WATCH TRAIN INSPECTOR Appointment [facility] DIAGNOSTIC RAD [address] [place] [phone] Neri Delgado MD [address] [place] [address] 07/26/2024 10:00 AM WATCH TRAIN INSPECTOR Office Visit [facility] - ENT [address] [place] [phone] Myra Farmer, DELIVERY TECH [address] [place] [address] 2L [place] [phone] 07/26/2024 11:15 AM WATCH TRAIN INSPECTOR Office Visit [facility] - ENT [address] [place] [phone] Neri Delgado MD [address] [place] [address] 08/02/2024 2:20 PM WATCH TRAIN INSPECTOR Appointment [facility] INF[facility]ION CENTER [address] [place] [address] 08/02/2024 3:00 PM WATCH TRAIN INSPECTOR Office Visit [facility] - Hematology/Oncology [address] [place] [phone] Remi Beckett MD [address] [place] [phone] 08/18/2024 1:45 PM WATCH TRAIN INSPECTOR Office Visit [facility] - ENT [address] [place] [phone] Neri Delgado MD [address] [place] [address] documented as of this encounter Visit Diagnoses Not on filedocumented in this encounter Care Teams Launch Steward Relationship Specialty Start Date End Date Taniya Grimes MD [address] [place] [address] 2L [place] [phone] PCP - General 07/01/20 05/10/22 Marylu Marie DO [address] [place] [address] 2L [place] [address] Resident - PCP Student Resident 06/26/20 01/11/22 documented as of this encounter
--- OUTSIDE RECORDS SUMMARY | 2024-07-23 07:22 | XMS_ITS | Encounter Summary ---
Author Organization [facility] Address [address] [place] [address] Care Team Providers Care Nuclear Weapons Mechanical Specialist Name Role Phone Marylu Marie DO Unavailable Taniya Grimes MD Primary Care Provider Reason for Visit * Reason Comments Lesions New patient, right e ar lesion Encounter Details Date Type Department Care Team (Late Contact Info) Description 12/09/2020 3:00 PM CDT Office Visit [facility] General Dermatology [address] [place] [address], [place] [phone] Mee Ward MD [address] [place] [address] 3 [place] [phone] Neoplasm of uncertain behavior of skin (Primary Dx); Other psoriasis; Other seborrheic keratosis Social History Tobacco Use Types Packs/Day Years [...] this encounter Patient Instructions * Patient Instructions* Mana Hauser MD - 12/09/2020 3:46 PM CDT Thank you for visiting the [facility] Dermatology [facility] today! Please continue the following instructionsas we discussed in clinic today. 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 It is less likely a skin cancer 1) We will call you with biopsy results within 7-10 days 2) You can use CNH pillows to offload pressure on [employer] or at the store Please return to clinic pending biopsy results WOUND CARE INSTRUCTIONS If you have a bandage, please leave your bandage on overnight. Starting the next day, cleanse your wound with mild soap and water and gently pat dry. Avoid soaking in bath or dishwater. Apply petroleum jelly to the wound after cleaning the wound and, as needed, throughout the day to keep the area moist and prevent a scab from forming. Cover the wound with a Band-Aid or appropriate dressing. For pain, you may take acetaminophen (extra or regular strength), 2 tablets every four hours as needed for pain. Do not exceed the recommended limit on the directions. Avoid ibuprofen containing products or related products(Motrin, Advil, Aleve, aspirin, etc) unless prescribed by your physician. Avoid any trauma of activity that may open your surgical wound. Notify your physician if you have: Bleeding that does not stop after 20 minutes of continuous pressure. Yellowish/greenish discharge from the treated area Increasing tenderness or pain Warmth of the area and/or fever over 101 F Red streaks up the arm or leg close to the treated area documented in this encounter Progress Notes * Mana Hauser MD - 12/09/2020 3:23 PM CDT Chief Complaint Patient presents with ??? Lesions New patient, right ear lesion HPI: Brisa Hogan a 60 year old female presents for skin lesion. PMH: Thyroid cancer, OCD, nicotine dependence, PSO Concerns: Skin lesion on R ear Duration: May 2020 Symptoms: Painful when pushed on Current treatments: ?? Neosporin Effect of treatment: Less red/inflamed than prior, but never goes away Other hx: Pt only sleeps on R ear side Other hx: Pt has hx psoriasis on elbows/knees controlled with clobetasol Personal history of skin cancer: none Past medical history, social history and family history were reviewed. ROS: As per HPI above. Patient denies fever, chills and night sweats. PE: No acute distress. Mood clear/affect appropriate. Alert and oriented. Mucous membranes moist. Sclera anicteric. Visible skin exam was conducted to include the scalp, face, lips, lids/conjunctiva, ears, neck, right and left hands and forearms and was normal with the following exceptions: - Belle scaly papule on R ear antehelix - Walter to brown stuck-on, waxy appearing papules on L arm - Thin pink plaque with silvery scale on L elbow A/P: Problem List Items Addressed This Visit 1. Neoplasm of uncertain behavior of skin - Primary - R ear antehelix - Ddx includes CNH vs. NMSC vs. HAK - Shave Biopsy (see procedure note) - Post-biopsy handout given - Wound care instructions reviewed - Will call patient with biopsy results. If intervention is indicated, will make arrangements at that time -Rec starting to use OTC CNH pillow for ear Relevant Orders PROC BIOPSY OF SKIN LESION (Completed) DERMATOPATHOLOGY 2. Other psoriasis - Well controlled - Continue clobetasol ointment BID PRN to affected areas 3. Other seborrheic keratosis - L forearm - Benign, reassured patient RTC in 3 months Sun protection, sunscreen with broad spectrum protection, SPF 30 and above, and self exam discussed. Patient seen and discussed with the attending physician, Dr. Ward. Mana Hauser M.D. [facility] Dermatology Resident, PGY-3 Associated attestation - Mee Ward MD - 12/09/2020 11:31 PM CDT Attending Physician's Note Resident's assessment and care plan reviewed; patient interviewed and examined. I agree with the history of present illness, physical exam, and assessment and plan as documented by the Resident todaywith the following annotations/corrections: History of present illness/Physical exam: 60 yo F here for painful bump on R antihelix present for the past several months. Partially improved but not resolved. She also sleeps on R side due to hip pain on L side. History of psoriasis, now improved after recent thyroid cancer treatment. I confirm/revise the differential diagnosis to be Brisa was seen today for lesions. Diagnoses and all orders for this visit: Neoplasm of uncertain behavior of skin, R antihelix, favor CNH, r/o SCC - PROC BIOPSY OF SKIN LESION - DERMATOPATHOLOGY Other psoriasis, mild on L elbow - Continue home clobetasol 0.05% ointment BID Other seborrheic keratosis - Reassured Please see resident's note for detail. Mee Ward MD 12/09/2020 documented in this encounter Procedure Notes * Mana Hauser MD - 12/09/2020 3:50 PM CDTAssociated Order(s): PROC BIOPSY OF SKIN LESION Procedure(s): NE TANGNTL BX SKIN SINGLE LES Pre-Procedure Diagnose(s): Neoplasm of uncertain behavior of skin Risks, benefits and alternatives to shave biopsy were discussed with the patient. Verbal consent was obtained. Encounter Diagnosis Name Primary? Neoplasm of uncertain behavior of skin Yes Location: R ear antehelix Skin prep: Alcohol Anesthesia: 1% lidocaine with epinephrine Hemostasis: Aluminum chloride Dressing and wound care discussed. Specimen(s) placed in a patient labeled container and sent to [facility] Dermatopathology. Patient agrees to phone call for results and message if not available. Mana Hauser MD Associated attestation - Mee Ward MD - 12/09/2020 11:31 PM CDT I was present for the perez portions of the procedure. See procedure note. Mee Ward MD Clinical Entry Level Drafter of Dermatology [facility] documented in this encounter Plan of Treatment Upcoming Encounters Date Type Department Care Team (Late st Contact Info) Description 07/25/2024 10:00 AM TIRE SHOP MECHANIC Office Visit [facility] - Endocrinology [address] [place] [phone] Yosi Bustamante MD [address] [place] [address] 2L [place] [address] 07/26/2024 10:00 AM TIRE SHOP MECHANIC Appointment [facility] DI[facility]NOSTIC RAD [address] [place] [address] Neri Delgado MD [address] [place] [address] 07/26/2024 10:00 AM TIRE SHOP MECHANIC Office Visit [facility] - ENT [address] [place] [phone] Myra Farmer, BINGO ATTENDANT [address] [place] [address] 2L [place] [address] 07/26/2024 11:15 AM TIRE SHOP MECHANIC Office Visit [facility] - ENT [address] [place] [phone] Neri Delgado MD [address] [place] [address] 08/02/2024 2:20 PM TIRE SHOP MECHANIC Appointment [facility] [address] [place] [address] 08/02/2024 3:00 PM TIRE SHOP MECHANIC Office Visit [facility] - Hematology/Oncology [address] [place] [address] Remi Beckett MD [address] [place] [address] 08/18/2024 1:45 PM TIRE SHOP MECHANIC Office Visit [facility] - ENT [address] [place] [phone] Neri Delgado MD [address] [place] [address] documented as of this encounter Procedures Procedure Name Priority Date/Time Associated Diagnosis Comments NE TANGNTL BX SKIN SINGLE LES Routine 12/09/2020 3:50 PM CDT Neoplasm of uncertain behavior of skin DERMATOPATHOLOGY Routine 12/09/2020 3:33 AM CDT Neoplasm of uncertain behavior of skin documented in this encounter Results * NE TANGNTL BX SKIN SINGLE LES (12/09/2020 3:50 PM CDT) Narrative Mee Ward MD - 12/09/2020 3:50 PM CDT Mana Hauser MD ? 12/09/2020 ??3:50 PM Risks, benefits [...] a patient labeled container and sent to [facility] Dermatopathology. Patient agrees to phone call for results and message if not available. Mana Hauser MD Mee Wadr MD PROCEDURE/NIDHI R SURGICAL ORDERABLES * DERMATOPATHOLOGY (12/09/2020 3:33 AM CDT) Case Report Dermatopathology Report ? Case: [id number] ? Authorizing Provider: ??Mee Ward, ?? Collected: ? 12/09/2020 03:33 AM ? MD ? Ordering Location: ? [facility] ?Received: ?12/10/2020 05:22 AM ? Dermatology ? Pathologist: ? Ed, Mee Woods, ? MD ? Specimen: ?Skin, right ear antehelix ? 4:19 PM CDT DERMATOPATHOLOGY LABORATORY Final Diagnosis Specimen A. 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 Cheli Soliz. These tests need not be, and therefore are not, approved by the [place] Food and Drug Administration. The tests are used for clinical purposes. Billing Codes Specimen Charges Stain Charges 99117 1 4:19 PM CDT DERMATOPATHOLOGY LABORATORY Embedded Images 4:19 PM CDT DERMATOPATHOLOGY LABORATORY Pathology/Cytolo gy TISSUE SPECIMEN FROM SKIN / Unknown 12/09/2020 3:33 AM CDT 12/10/2020 5:22 AM CDT Mee Ward MD LAB - PATHOLOG Y/CYTOLOGY ORDERABLES DERMATOPATHOLOGY LABORATORY [facility] - Department of Dermatology [facility] [address] [facility], [address]rd Floor [address] [phone] documented in this encounter Visit Diagnoses Diagnosis Neoplasm of uncertain behavior of skin- Primary Other psoriasis Other seborrheic keratosis * Assessment & Plan Note - Mana Hauser MD - 12/09/2020 4:00 PM CDT Associated Problem(s): Other seborrheic keratosis - L forearm - Benign, reassured patient * Assessment & Plan Note - Mana Hauser MD - 12/09/2020 3:51 PM CDT Associated Problem(s): Other psoriasis - Well controlled - Continue clobetasol ointment BID PRN to affected areas * Assessment & Plan Note - Mana Hauser MD - 12/09/2020 3:47 PM CDT Associated Problem(s): Neoplasm of uncertain behavior of skin - R ear antehelix - Ddx includes CNH vs. NMSC vs. HAK - Shave Biopsy (see procedure note) - Post-biopsy handout given - Wound care instructions reviewed - Will call patient with biopsy results. If intervention is indicated, will make arrangements at that time -Rec starting to use OTC CNH pillow for ear documented in this encounter Care Teams Nuclear Weapons Mechanical Specialist Relationship Specialty Start Date End Date Taniya Grimes MD [address] [place] [address] OF [facility] [place] [address] PCP - General 07/01/20 05/10/22 Marylu Marie DO [address] OF [facility] [place] [address] Resident - PCP Student Resident 06/26/20 01/11/22 documented as of this encounter
--- OUTSIDE RECORDS SUMMARY | 2024-07-23 07:22 | XMS_ITS | Encounter Summary ---
Author Organization [facility] Address [address] [place] [address] Care Team Providers Care Flagstone Layer Name Role Phone Marylu Marie DO Unavailable [phone] Taniya Grimes MD Primary Care Provider Reason for Visit * Reason Onset Date Comments Medication Issue 12/06/2020 Encounter Details Date Type Department Care Team (Late st Contact Info) Description 12/06/2020 Telephone [facility] [address] [place] [address] Mary Beth Briceno, pot annealer Issue Social History Tobacco Use Types Packs/Day [...] Notes * Telephone Encounter - Mary Beth Briceno RN - 12/06/2020 12:24 PM CDT Patient called to report nausea, upset stomach and tiredness after taking the celebrex. She stoppedthe medication after just 2 doses 2 weeks ago. She says she is now having new symptoms like caugh when drinking water and memory loss. Since patient has stopped medication over 14 days ago and only took it twice, explained her symptoms are unlikely related to the celebrex and to follow up with her PCP for symptoms. She went back to taking her mobic, which she has had not symptoms with in the past. documented in this encounter Plan of Treatment Upcoming Encounters Date Type Department Care Team (Late st Contact Info) Description 07/25/2024 10:00 AM PET ADOPTION COUNSELOR Office Visit [facility] - Endocrinology [address] [place] [phone] Yosi Bustamante MD [address] [place] [address] 2L [place] [address] 07/26/2024 10:00 AM PET ADOPTION COUNSELOR Appointment [facility] DI[facility]IC RAD [address] [place] [phone] Neri Delgado MD [address] [place] [address] 07/26/2024 10:00 AM PET ADOPTION COUNSELOR Office Visit [facility] - ENT [address] [place] [phone] Myra Farmer, HARBOR POLICE LAUNCH COMMANDER [address] [place] [address] 2L [place] [phone] 07/26/2024 11:15 AM PET ADOPTION COUNSELOR [facility] [address] [place] [phone] Neri Delgado MD [address] [place] [address] 08/02/2024 2:20 PM PET ADOPTION COUNSELOR Appointment [facility] [address] [place] [address] 08/02/2024 3:00 PM PET ADOPTION COUNSELOR Office Visit [facility] - Hematology/Oncology [address] [place] [phone] [place] [address] [place] [phone] 08/18/2024 1:45 PM PET ADOPTION COUNSELOR Office Visit [facility] Group - ENT [address] [place] [phone] Neri Delgado MD [address] [place] [address] documented as of this encounter Visit Diagnoses Not on filedocumented in this encounter Care Teams Flagstone Layer Relationship Specialty Start Date End Date Taniya Grimes MD [address] [place] [address] 2L DIV OF [facility] [place] [address] PCP - General 07/01/20 05/10/22 Marylu Marie DO [address] [place] [address] 2L DIV OF [place] [address] Resident - PCP Student Resident 06/26/20 01/11/22 documented as of this encounter
--- OUTSIDE RECORDS SUMMARY | 2024-07-23 07:23 | XMS_ITS | Encounter Summary ---
Author Organization [facility] Address [address] [facility] [place] [address] Care Team Providers Care Product Manager Financial Services Name Role Phone Marylu Marie DO Unavailable Taniya Grimes MD Primary Care Provider Encounter Details Date Type Department Care Team (Latest Contact Info) Description 11/19/2020 11:07 AM CDT - 11/19/2020 11:59 PM CDT Hospital Encounter [facility]IC RAD [facility] [address] [facility] [place] [address] Cesar Brooks MD [address] [phone] Discharge Disposition: Home or Self Care Social [...] the Blood 60 capsule 11 11/06/2020 05/22/2021 [id number]-[id number] [id number] MG tabletIndications:Other hypoparathyroidism (HCC) Take 1 [...] fluticasone propionate (FLONASE) 50 MCG/ACT nasal spray [place] 2 sprays into each nostril 16 g 09/06/2019 04/11/2021 gabapentin (NEURONTIN) 300 MG capsuleIndications:Primar y osteoarthritis of left hip TAKE 1 CAPSULE BY MOUTH THREE TIMES A DAY 90 capsule 5 09/11/2020 03/25/2021 [id number] AL PO Take 1 tablet by mouth 3 times daily 06/13/2023 levothyroxine (SYNTHROID) 112 MCG tabletIndications:Hypothy roidism,Malignant Neoplasm of Thyroid Take 1 (one) tablet by mouth daily before breakfast Reasons: Underactive Thyroid, Cancer of Thyroid 30 tablet 11 10/14/2020 12/09/2020 meloxicam (MOBIC) 7.5 MG tablet TAKE 1 TABLET BY MOUTH EVERY DAY 60 tablet 2 07/16/2020 01/13/2021 Lafe-3 Fatty Acids (FISH OIL) 1000 MG capsule [...] Contact Info) Description 07/25/2024 10:00 AM SENIOR INFRASTRUCTURE ENGINEER [facility] [address] [place] [phone] Yosi Bustamante MD [address] [place] [address] 2L [place] [address] 07/26/2024 10:00 AM SENIOR INFRASTRUCTURE ENGINEER Appointment [facility] DI[facility]NOSTIC RAD [address] [place] [address] Neri Delgado MD [address] [place] [address] 07/26/2024 10:00 AM SENIOR INFRASTRUCTURE ENGINEER Office Visit [facility] - ENT [address] [place] [phone] Myra Farmer, MANUFACTURING TECHNOLOGY PROFESSOR [address] [place] [address] 2L [place] [phone] 07/26/2024 11:15 AM SENIOR INFRASTRUCTURE ENGINEER Office Visit [facility] - ENT [address] [place] [phone] Neri Delgado MD [address] [place] [address] 08/02/2024 2:20 PM SENIOR INFRASTRUCTURE ENGINEER Appointment [facility] [address] [place] [address] 08/02/2024 3:00 PM SENIOR INFRASTRUCTURE ENGINEER Office Visit [facility] - Hematology/Oncology [address] [place] [phone] Remi Beckett MD [address] [place] [phone] 08/18/2024 1:45 PM SENIOR INFRASTRUCTURE ENGINEER Office Visit [facility] - ENT [address] [place] [phone] Neri Delgado MD [address] [place] [address] documented as of this encounter Procedures Procedure Name Priority Date/Time Associated Diagnosis Comments XR PELVIS 1 OR 2VW Routine 11/19/2020 11 :38 AM CDT Primary osteoarthritis of left hip documented in this encounter Results * XR PELVIS 1 OR 2VW (11/19/2020 11:38 AM CDT) Anatomical Region Laterality Modality Pelvis Radiographic Ewa ging 11/19/2020 12:5 7 PM CDT Impressions [...] is seen. There is severe arthritis with mgxl-cq-neje contact superiorly, subchondral cysts, sclerosis, and osteophytes. [...] is seen. There is severe arthritis with iggh-uy-idit contact superiorly, subchondral cysts, sclerosis, and osteophytes. [...] thigh documented in this encounter Care Teams Product Manager Financial Services Relationship Specialty Start Date End Date Taniya Grimes MD [address] 2L DIV OF [facility] [place] [address] PCP - General 07/01/20 05/10/22 Marylu Marie DO [address] 2L DIV OF [facility] [place] [address] Resident - PCP Student Resident 06/26/20 01/11/22 documented as of this encounter
--- OUTSIDE RECORDS SUMMARY | 2024-07-23 07:23 | XMS_ITS | Encounter Summary ---
Author Organization [facility] Health Address [address] [facility] [place] [address] Care Team Providers Care Documentation Manager Name Role Phone Marylu Marie DO Unavailable [phone] Taniya Grimes MD Primary Care Provider Reason for Visit * Reason Comments Pain Ear right ear possible b ite Encounter Details Date Type Department Care Team (Late st Contact Info) Description 11/19/2020 12:40 PM CDT Office Visit [facility] General Internal Medicine [address] [facility], [place] [address] Lesion of right ear (Primary Dx) Social History Tobacco Use Types [...] Sign Reading Time Taken Comments Blood Pressure 98/59 11/19/2020 12:50 PM CDT Pulse 80 11/19/2020 12:50 PM CDT Temperature - - Respiratory Rate - - Oxygen Saturation 97% 11/19/2020 12:50 PM CDT Inhaled Oxygen Concentration - - Weight 70.5 kg (155 lb 6.4 oz) 11/19/2020 12:50 PM CDT Height - - Body Mass Index 28.42 11/04/2020 2:22 PM CDT documented in this encounter Functional [...] as of this encounter Progress Notes * Neri Chow, HYPOID GEAR TESTER-MULTI NEEDLE MACHINE OPERATOR - 11/19/2020 12:42 PM CDT Images from the original note were not included. Internal Medicine Acute Care Note CC: Chief Complaint Patient presents with ??? Pain Ear right ear possible bite PCP: Taniya Grimes MD HPI: Brisa Hogan is a 60 year old female with history of psoriasis and thyroid CA presenting for right ear lesion - possible bite. Pt reports lesion on upper part of her R ear. Has never been evaluated by a electric organ checker. Pt reports that she first noticed the lesion in May of 2020 - she states she woke up one morning and she noticed it. Initially it was purple. She reports that over time it has scaled over and continues to scab and will not heal. She reports that she picks the scab off of it and then it will become irritated. Patient also reports that she has put hydrogen peroxide on the lesion. Denies pain, purulence, heat, redness at site. Occasional bleeding and weeping if she picks the scab/cap. Past Medical History: Reviewed and Updated; see Epic History tab for details Past Surgical History: Reviewed and Updated; see Epic History tab for details Social History: Reviewed and Updated; see Epic History tab for details Current Medications: Reviewed and up to date in Epic Medication tab Allergies: No Known Allergies Review of Systems: PER HPI Physical Exam: BP 98/59 Pulse 80 Wt 155 lb 6.4 oz (70.5 kg) SpO2 97% BMI 28.42 kg/m2 Gen: NAD, conversational, pleasant, cooperative, steady gait, walking with walker Eyes: EOMI; PERRLA; anicteric, non-injected sclerae CV: normal S1, S2; RRR; no MRGs appreciated; 2+ radial, DP pulses bilaterally; no LE edema Pulm: CTAB; no wheezes or crackles Neuro:CN II-XII grossly intact; no focal neurologic deficits Psych: AOx3; calm, congruent affect Skin: 1 cm pink and shiny lesion on R ear with rough surface, see picture above Assessment and Plan: 1. Lesion of right ear - Encouraged patient to NOT put hydrogen peroxide on lesion - Encouraged patient not to pick at lesion - If lesion weeps, patient can cover with gauze - Keep ears and skin clean with normal soap and water - Encouraged sunscreen use on all sun exposed areas - Nonhealing psoriatic plaque vs actinic keratosis vs BCC - AMB Ref Dermatology - DERM-JENNA GEN; Future Patient to RTC as previously scheduled with PCP. Call with any questions or concerns in the interim. Neri Chow APRN-MULTI NEEDLE MACHINE OPERATOR Associated attestation - Andria Anaya DO - 11/19/2020 5:14 PM CDT I have reviewed the EDITING INTERN's note and agree with his assessment and plan. Andria Anaya DO documented in this encounter Plan of Treatment Upcoming Encounters Date Type Department Care Team (Late st Contact Info) Description 07/25/2024 10:00 AM INSULATION CUTTER AND FORMER Office Visit [facility] - Endocrinology [address] [place] [phone] Ysoi Bustamante MD [address] [place] [address] [place] [address] 07/26/2024 10:00 AM INSULATION CUTTER AND FORMER Appointment [facility] DIAGNOSTIC RAD [address] [place] [address] Neri Delgado MD [address] [place] [address] 07/26/2024 10:00 AM INSULATION CUTTER AND FORMER Office Visit [facility] - ENT [address] [place] [phone] Myra Farmer, CAR WASHER [address] [place] [place] [address] 2L [place] [phone] 07/26/2024 11:15 AM INSULATION CUTTER AND FORMER [facility] ENT [address] [place] [phone] Neri Delgado MD [address] [place] [address] 08/02/2024 2:20 PM INSULATION CUTTER AND FORMER Appointment [facility] INFUSION CENTER [address] [place] [address] 08/02/2024 3:00 PM INSULATION CUTTER AND FORMER Office Visit [facility] - Hematology/Oncology [address] [place] [phone] Remi Beckett MD [address] [place] [phone] 08/18/2024 1:45 PM INSULATION CUTTER AND FORMER Office Visit [facility] - ENT [address] [place] [phone] Neri Delgado MD [address] [place] [address] documented as of this encounter Visit Diagnoses Diagnosis Lesion of right ear- Primary documented in this encounter Care Teams Documentation Manager Relationship Specialty Start Date End Date Taniya Grimes MD [address] [place] [place] [address] 2L [place] [phone] PCP - General 07/01/20 05/10/22 Marylu Marie DO [address] OF [facility] [place] [address] Resident - PCP Student Resident 06/26/20 01/11/22 documented as of this encounter
--- OUTSIDE RECORDS SUMMARY | 2024-07-23 07:23 | XMS_ITS | Encounter Summary ---
Author Organization [facility] Health Address [address] [facility] [place] [address] Care Team Providers Care Finisher Screwdown Name Role Phone Marylu Marie DO Unavailable [phone] Taniya Grimes MD Primary Care Provider [phone] Encounter Details Date Type Department Care Team (Latest Contact Info) Description 11/11/2020 Travel Social History Tobacco Use Types Packs/Day [...] st Contact Info) Description 07/25/2024 10:00 AM NEW CAR MAKE READY MECHANIC Office Visit [facility] - Endocrinology [address] [place] [phone] Yosi Bustamante MD [address] [place] [address] 2L [place] [address] 07/26/2024 10:00 AM NEW CAR MAKE READY MECHANIC Appointment [facility] DIAGNOSTIC RAD [address] [place] [address] Neri Delgado MD [address] [place] [address] 07/26/2024 10:00 AM NEW CAR MAKE READY MECHANIC Office Visit [facility] - ENT [address] [place] [phone] Myra Farmer, INSIDE POLISHER [address] [place] [address] 2L [place] [address] 07/26/2024 11:15 AM NEW CAR MAKE READY MECHANIC Office Visit [facility] - ENT [address] [place] [phone] Neri Delgado MD [address] [place] [address] 08/02/2024 2:20 PM NEW CAR MAKE READY MECHANIC Appointment [facility] INFUSION CENTER [address] [place] [address] 08/02/2024 3:00 PM NEW CAR MAKE READY MECHANIC Office Visit [facility] - Hematology/Oncology [address] [place] [phone] Remi Beckett MD [address] [place] [phone] 08/18/2024 1:45 PM NEW CAR MAKE READY MECHANIC Office Visit [facility] - ENT [address] [place] [address] Neri Delgado MD [address] [place] [address] documented as of this encounter Visit Diagnoses Not on filedocumented in this encounter Care Teams Finisher Screwdown Relationship Specialty Start Date End Date Taniya Girmes MD [address] [place] [address] 2L DIV OF [facility] [place] [place] [address] PCP - General 07/01/20 05/10/22 Marylu Marie DO [address] [place] [address] [address] [address] Resident - PCP Student Resident 06/26/20 01/11/22 documented as of this encounter
--- OUTSIDE RECORDS SUMMARY | 2024-07-23 07:23 | XMS_ITS | Encounter Summary ---
Author Organization [facility] Health Address [address] [facility] [place] [address] Care Team Providers Care Kick Boxer Name Role Phone Marylu Marie DO Unavailable Taniya Grimes MD Primary Care Provider [phone] Encounter Details Date Type Department Care Team (Latest Contact Info) Description 11/11/2020 2:40 PM CDT - 11/11/2020 11:59 PM CDT Hospital Encounter [facility] OP DRAW STATION [address] [place] [address] Yosi Bustamante MD [address] [facility] [address] [facility] [place] [address] Discharge Disposition: Home or Self Care Social [...] the Blood 60 capsule 11 11/06/2020 05/22/2021 mbvxwkg-kpwygzmpa-jjod 333-133-5 MG tabletIndications:Other hypoparathyroidism (HCC) Take 1 (one) tablet by mouth 3 times daily 10/14/2020 01/13/2021 calcium-vitamin D (OS-YANNICK 500 + D) 500-200 mg-unit tabletIndications:Other hypoparathyroidism (HCC) Take 1 (one) tablet by mouth 3 times daily with meals 120 tablet 3 10/14/2020 01/13/2021 cetirizine (ZYRTEC) 10 MG tabletIndications:Allergi c rhinitis, unspecified seasonality, unspecified trigger Take 1 (one) tablet by mouth once daily 30 tablet 5 09/05/2020 01/13/2021 clobetasol (TEMOVATE) 0.05 % ointment Apply to affected area 2 times daily 60 g 12/26/2019 01/13/2021 clonazePAM (KLONOPIN) 0.5 MG tablet Take 0.5 mg by mouth 2 times daily 03/29/2019 05/22/2021 fluticasone propionate (FLONASE) 50 MCG/ACT nasal spray [place] 2 sprays into each nostril 16 g 09/06/2019 04/11/2021 gabapentin (NEURONTIN) 300 MG capsuleIndications:Primar y osteoarthritis of left hip TAKE 1 CAPSULE BY MOUTH THREE TIMES A DAY 90 capsule 5 09/11/2020 03/25/2021 DIELJR-UHRJLCVDH-CAQ-C-HY AL PO Take 1 tablet by mouth 3 times daily 06/13/2023 levothyroxine (SYNTHROID) 112 MCG tabletIndications:Hypothy roidism,Malignant Neoplasm of Thyroid Take 1 (one) tablet by mouth daily before breakfast Reasons: Underactive Thyroid, Cancer of Thyroid 30 tablet 11 10/14/2020 12/09/2020 meloxicam (MOBIC) 7.5 MG tablet TAKE 1 TABLET BY MOUTH EVERY DAY 60 tablet 2 07/16/2020 01/13/2021 [place]-3 Fatty Acids (FISH OIL) 1000 MG capsule [...] st Contact Info) Description 07/25/2024 10:00 AM MARBLE CUTTER Office Visit [facility]ician Group - Endocrinology [address] [place] [phone] Yosi Bustamante MD [address] [place] [address] 2L [place] [address] 07/26/2024 10:00 AM MARBLE CUTTER Appointment [facility] DIAGNOSTIC RAD [address] [place] [address] Neri Delgado MD [address] [place] [phone] 07/26/2024 10:00 AM MARBLE CUTTER Office Visit [facility] Physician Group - ENT [address] [place] [phone] Myra Farmer, COUNTER CHECKER [address] [place] [address] 2L [place] [address] 07/26/2024 11:15 AM MARBLE CUTTER Office Visit [facility] Group - ENT [address] [place] [phone] Neri Delgado MD [address] [place] [phone] 08/02/2024 2:20 PM MARBLE CUTTER Appointment [facility] [address] [place] [address] 08/02/2024 3:00 PM MARBLE CUTTER Office Visit [facility] Group - Hematology/Oncology [address] [place] [address] Remi Beckett MD [address] [place] [address] 08/18/2024 1:45 PM MARBLE CUTTER Office Visit [facility] Physician Group - ENT [address] [place] [phone] Neri Delgado MD [address] [place] [address] documented as of this encounter Procedures Procedure Name Priority Date/Time Associated Diagnosis Comments URINE DRUG SCREEN IMMUNOASSAY Routine 11/11/2020 3:56 PM CDT 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 current use of 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 THYROGLOBULIN REFLEX PROFILE Routine 11/11/2020 3:49 PM CDT Postoperative hypothyroidism Thyroid cancer (HCC) Hypocalcemia THYROGLOBULIN BY ANTONIETA RFLXED Routine 11/11/2020 3:49 PM CDT Postoperative hypothyroidism Thyroid cancer (HCC) Hypocalcemia PTH INTACT W/O CALCIUM Routine 3:49 PM CDT Postoperative hypothyroidism Thyroid cancer (HCC) Hypocalcemia VITAMIN D 25-HYDROXY Routine 11/11/2020 3:49 PM CDT Postoperative hypothyroidism Thyroid cancer (HCC) Hypocalcemia RENAL FUNCTION PANEL Routine 11/11/2020 3:49 PM CDT Postoperative hypothyroidism Thyroid cancer (HCC) Hypocalcemia TSH Routine 11/11/2020 3:49 PM CDT Postoperative hypothyroidism Thyroid cancer (HCC) Hypocalcemia documented in this encounter Results * URINE DRUG SCREEN COMPREHENSIVE (11/11/2020 3:56 PM CDT) Pathologist [facility] Amphetamines Screen Urine Negative Negative: < 1000 ng/mL 11/11/2020 4:50 PM [facility] Barbiturates Screen Urine Negative Negative: < 200 ng/mL 11/11/2020 4:50 PM [facility] Benzodiazepine Screen Urine Negative Negative: < 200 ng/mL 11/11/2020 4:50 PM [facility] Opiates Urine Negative Negative: < 300 ng/mL 11/11/2020 4:50 PM [facility] Cocaine Metabolites Urine Negative Negative: < 300 ng/mL 11/11/2020 4:50 PM T [facility] Phencyclidine Screen Urine Negative Negative: < 25 ng/ml 11/11/2020 4:50 PM [facility] Cannabinoids Screen Urine Negative Negative: <50 ng/mL 11/11/2020 4:50 PM [facility] Methadone Screen Urine Negative Negative: < 300 ng/mL 11/11/2020 4:50 PM [facility] Fentanyl Screen Urine Negative Negative: <1.0 ng/mL 11/11/2020 4:50 PM [facility] Urine URINE / Unknown Collection / Unknown 11/11/2020 3:56 PM CDT 11/11/2020 4:15 PM CDT [facility] - 11/11/2020 4:50 PM CDT The Urine Toxicology Screening Panel does not screen for Propoxyphene, Meprobamate, Carisoprodol, Trazodone, etye-iqh-rbovtyd medications and/or volatiles (Acetone, Isopropanol, Methanol or Ethylene Glycol). Ethanol, Salicylate, Acetaminophen, Tricyclic Antidepressants and several therapeutic drugs may be individually assayed in serum or plasma specimen. Toxicology testing by the [facility] is an aid to medical diagnosis and treatment of patients. No documented chain of custody was maintained. Results are intended to be used for clinical purposes only. ? Yaneth Evan Rahman SCISSORS GRINDER-ASSIGNMENT DESK EDITOR LAB - URINE CH EMISTRY ORDERABLES Performing Organization Address [facility]/ZIP Co de Phone Number [facility] [address] [place] [address], [facility] [phone] * (ABNORMAL) THYROGLOBULIN BY ANTONIETA RFLXED (11/11/2020 3:49 PM CDT) Pathologist [facility] Thyroglobulin by ANTONIETA 0.9(L) 1.5 - 38.5 ng/mL 11/13/2020 5:08 PM CDT [facility] ([facility]) Comment: According to the National Academy [...] SPECIMEN / Unknown Lab Venipuncture / Unknown 11/11/2020 3:49 PM CDT 11/11/2020 4:28 PM CDT Narrative [facility] ([facility]) - 11/13/2020 5:08 PM CDT Performed at: ??01 - [facility] [place] [address] [facility], [place], [place] ??[id number] Crucible Packer: Oral Melendez PhD, Phone: ??[phone] Yosi Bustamante MD LAB - CHEMISTRY ORD ERABLES Performing Organization Address City/[facility]/ZIP Co de Phone Number [facility] ([facility]) [address] [place] [address], [facility] * THYROGLOBULIN REFLEX PROFILE (11/11/2020 3:49 PM CDT) Thyroglobulin Antibody <1.0 0.0 - 0.9 IU/mL 11/13/2020 5:08 PM CDT [facility] ([facility]) Comment:Thyroglobulin Antibo dy measured by Lisbet Derry Methodology Blood BLOOD SPECIMEN / Unknown Lab Venipuncture / Unknown 11/11/2020 3:49 PM CDT 11/11/2020 4:28 PM CDT [facility]ative [facility] ([facility]) - 11/13/2020 5:08 PM CDT Performed at: ??01 - [facility] [address] [facility], [place], [place] ??[id number] Crucible Packer: Oral Melendez PhD, Phone: ??[phone] Yosi Bustamante MD LAB - CHEMISTRY ORD ERABLES [facility]) [address] [place] [address], [facility] * VITAMIN D 25-HYDROXY (11/11/2020 3:49 PM CDT) [facility] Vitamin D, 25 Hydroxy 53.0 See comment: ng/mL 11/11/2020 5:09 PM CDT [facility] Comment: The recommendations for 25-Hydroxy [...] SPECIMEN / Unknown Lab Venipuncture / Unknown 11/11/2020 3:49 PM CDT 11/11/2020 4:15 PM CDT Yosi Bustamante MD LAB - CHEMISTRY ORD ERABLES Performing Organization Address City/[facility]/ZIP Co de Phone Number [address] [address], [facility] [phone] * (ABNORMAL) PTH INTACT W/O CALCIUM (11/11/2020 3:49 PM CDT) PTH Intact <4.0(L) 8.0 - 77.0 pg/mL 11/11/2020 4:51 PM CDT [facility] Blood BLOOD SPECIMEN / Unknown Lab Venipuncture / Unknown 11/11/2020 3:49 PM CDT 11/11/2020 4:15 PM CDT Yosi Bustamante MD LAB - CHEMISTRY ORD ERABLES Performing Organization Address City/[facility]/ZIP Co de Phone Number [address] [address], [facility] [phone] * (ABNORMAL) RENAL FUNCTION PANEL (11/11/2020 3:49 PM CDT) BUN 21 7 - 26 mg/dL 11/11/2020 4:51 PM CDT [facility] Creatinine 0.8 0.6 - 1.2 mg/dL 11/11/2020 4:51 PM CDT [facility] Sodium 143 136 - 145 mmol/L 11/11/2020 4:51 PM CDT [facility] Potassium 3.4(L) 3.5 - 4.5 mmol/L 11/11/2020 4:51 PM CDT [facility] Chloride 104 98 - 107 mmol/L 11/11/2020 4:51 PM CDT [facility] CO2 27 22 - 29 mmol/L 11/11/2020 4:51 PM CDT [facility] Glucose 132(H) 70 - 115 mg/dL 11/11/2020 4:51 PM CDT [facility] Albumin 4.1 3.4 - 5.0 g/dL 11/11/2020 4:51 PM [facility] Calcium 9.8 8.4 - 10.2 mg/dL 11/11/2020 4:51 PM [facility] Phosphorus 4.5 2.3 - 4.7 mg/dL 11/11/2020 4:51 PM [facility] Anion Gap 15 8 - 18 11/11/2020 4:51 PM [facility] BUN/Creatinine Ratio 26(H) 7 - 23 11/11/2020 4:51 PM [facility] Osmolality Calculated 301(H) 270 - 300 mOsm/kg 11/11/2020 4:51 PM [facility] eGFR >60 >60 mL/min/1.7 3 m2 11/11/2020 4:51 PM [facility] Blood BLOOD SPECIMEN / Unknown Lab Venipuncture / Unknown 11/11/2020 3:49 PM CDT 11/11/2020 4:15 PM CDT Yosi Bustamante MD LAB - CHEMISTRY ORD ERABLES [address] [address], [facility] [phone] * TSH (11/11/2020 3:49 PM CDT) TSH 0.900 0.350 - 4.940 uIU/mL 11/11/2020 5:09 PM CDT [facility] Blood BLOOD SPECIMEN / Unknown Lab Venipuncture / Unknown 11/11/2020 3:49 PM CDT 11/11/2020 4:15 PM CDT Yosi Bustamante MD LAB - CHEMISTRY ORD ERABLES [address] [address], [place] [phone] documented in this encounter Visit Diagnoses Diagnosis Postoperative hypothyroidism Postsurgical hypothyroidism Thyroid cancer (HCC) Malignant neoplasm of thyroid gland Hypocalcemia 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
--- OUTSIDE RECORDS SUMMARY | 2024-07-23 07:23 | XMS_ITS | Encounter Summary ---
Author Organization [facility] Health Address [address] [place] [address] Care Team Providers Care Senior Back End Java Developer Name Role Phone Marylu Marie DO Unavailable Taniya Grimes MD Primary Care Provider [phone] Reason for Visit * Reason Comments Follow-up Encounter Details Date Type Department Care Team (Latest Contact Info) Description 11/19/2020 10:45 AM CDT Office Visit [facility] - Orthopedics [address] [facility] [place] [address] Chitra Brooks MD [address] [facility] [address] [place], [place] [id number] Primary osteoarthritis of left hip (Primary Dx) [...] as of this encounter Progress Notes * Chitra Brooks MD - 11/19/2020 12:10 PM CDT Patient returns for follow-up of her left severe osteoarthritis of her hip. She is currently undergoing treatment for thyroid cancer. She continues to smoke. She is wondering about any further delaysbefore hip replacement. She is wondering if this will disc qualify her for having a hip replacement. She is wondering about other pain medication she can take as she currently takes Tylenol and meloxicam without any improvement. She complains of pain and limited range of motion and severe pain withany ambulation. She has a walker today. She denies fevers or chills. She states she had a successful excision of her thyroid cancer. Current Outpatient Medications on File Prior to Visit Medication Sig Dispense Refill ??? Acetaminophen (TYLENOL 8 HOUR ARTHRITIS PAIN PO) Take by mouth as needed ??? albuterol HFA (PROVENTIL;VENTOLIN;PROAIR) 108 (90 Base) MCG/ACT inhaler Inhale 2 puffs by mouthevery 4 hours as needed ??? atorvastatin (LIPITOR) 40 MG tablet TAKE 1 TABLET BY MOUTH EVERYDAY AT BEDTIME 30 tablet 11 ??? B Complex Vitamins (VITAMIN B COMPLEX) tablet Take by mouth DAILY. ??? calcitriol (ROCALTROL) 0.5 MCG capsule Take 1 (one) capsule by mouth 2 times daily Reasons: LowAmount of Calcium in the Blood 60 capsule 11 ??? mwyuzez-lhjoftpsy-usvm 333-133-5 MG tablet Take 1 (one) tablet by mouth 3 times daily ??? calcium-vitamin D (OS-YANNICK 500 + D) 500-200 mg-unit tablet Take 1 (one) tablet by mouth 3 times daily with meals 120 tablet 3 ??? cetirizine (ZYRTEC) 10 MG tablet Take 1 (one) tablet by mouth once daily 30 tablet 5 ??? clobetasol (TEMOVATE) 0.05 % ointment Apply to affected area 2 times daily 60 g 0 ??? clonazePAM (KLONOPIN) 0.5 MG tablet Take 0.5 mg by mouth 2 times daily ??? famotidine (PEPCID) 20 MG tablet Take 20 mg by mouth 2 times daily as needed ??? fluticasone propionate (FLONASE) 50 MCG/ACT nasal spray [place] 2 sprays into each nostril 16 g 0 ??? gabapentin (NEURONTIN) 300 MG capsule TAKE 1 CAPSULE BY MOUTH THREE TIMES A DAY 90 capsule 5 ??? GMDBBM-AEBHQOBMB-WCZ-C-HYAL PO Take 1 tablet by mouth 3 times daily ??? levothyroxine (SYNTHROID) 112 MCG tablet Take 1 (one) tablet by mouth daily before breakfast Reasons: Underactive Thyroid, Cancer of Thyroid 30 tablet 11 ??? meloxicam (MOBIC) 7.5 MG tablet TAKE 1 TABLET BY MOUTH EVERY DAY 60 tablet 2 ??? [place]-3 Fatty Acids (FISH OIL) 1000 MG capsule Take 1,000 mg by mouth 3 times daily with meals. ??? oxyCODONE, immediate release, (ROXICODONE) 5 MG tablet Take 1 (one) tablet by mouth every 4 hours as needed for Pain 48 tablet 0 ??? pantoprazole EC (PROTONIX) 40 MG tablet TAKE 1 TABLET BY MOUTH DAILY FOR STOMACH 30 tablet 5 ??? PARoxetine (PAXIL) 40 MG tablet (Patient taking differently: Take 40 mg by mouth once daily ) 2 ??? senna (SENOKOT) 8.6 MG tablet Take 1 (one) tablet by mouth once daily as needed for Constipation 45 tablet 0 ??? thyrotropin tayo (THYROGEN) injection Inject 0.9 mg into muscle every 24 hours for 2 days 2 mL 0 ??? traMADol (ULTRAM) 50 MG tablet Take one tablet up to 2-3 times a day NEEDED for pain 12 tablet 0 ??? traZODone (DESYREL) 50 MG tablet Take 50 mg by mouth at bedtime ??? vitamin E (TOCOPHERYL) 400 UNIT capsule Take 400 Units by mouth TID. No current facility-administered medications on file prior [...] Smokeless tobacco: Never Used ??? Tobacco comment: 1 cig a day Vaping Use ??? Vaping [...] leg swelling. Musculoskeletal: Positive for joint pain. Skin: Negative for itching and rash. Neurological: Negative for focal weakness. All other systems reviewed and are negative. Physical exam: Patient is awake and alert BMI is 28 Facial expressions are appropriate with a mask in place Patient is cooperative the examination Examination left hip reveals very limited range of motion with flexion to 80, abduction 10, adduction 10, internal rotation of 10, external rotation of 10. Distally she can dorsiflex and plantar flexher ankle and toes without difficulty. She is at least a cm short on the left compared to the right. She ambulates with an antalgic gait and a walker X-rays: None obtained Assessment: Severe osteoarthritis left hip with recent diagnosis of thyroid cancer Plan: We discussed that she would have to be off all nicotine for at least 1 month prior to surgery. We basically discussed risks and benefits again today. We discussed clearances. We discussed dental clearance. We will see her back when she is off nicotine and has completed her course of chemotherapy for thyroid cancer. Patient understood the treatment plan and all questions were answered. documented in this encounter Miscellaneous Notes * Addendum Note - Chitra Brooks MD - 11/19/2020 12:35 PM CDTAddended by: CHITRA BROOKS on: 11/19/2020 12:35 PM Modules accepted: Orders documented in this encounter Plan of Treatment Upcoming Encounters Date Type Department Care Team (Late st Contact Info) Description 07/25/2024 10:00 AM DECOMMISSIONING WELL SITE MANAGER Office Visit [facility] - Endocrinology [address] [place] [address], [place] [address] Yosi Bustamante MD [address] [place] [address] [place] [address] 07/26/2024 10:00 AM DECOMMISSIONING WELL SITE MANAGER Appointment [facility] RAD [address] [place] [address] Neri Delgado MD [address] [place] [address] 07/26/2024 10:00 AM DECOMMISSIONING WELL SITE MANAGER Office Visit [facility] - ENT [address] [place] [phone] Myra Farmer, COMMERCIAL REAL ESTATE BROKER [address] [place] [address] [place] [phone] 07/26/2024 11:15 AM DECOMMISSIONING WELL SITE MANAGER Office Visit [facility] - ENT [address] [place] [phone] Neri Delgado MD [address] [place] [address] 08/02/2024 2:20 PM DECOMMISSIONING WELL SITE MANAGER Appointment [facility] [address] [place] [address] 08/02/2024 3:00 PM DECOMMISSIONING WELL SITE MANAGER Office Visit [facility] - Hematology/Oncology [address] [place] [phone] Remi Beckett MD [address] [place] [phone] 08/18/2024 1:45 PM DECOMMISSIONING WELL SITE MANAGER Office Visit [facility] - ENT [address] [place] [phone] Neri Delgado MD [address] [place] [address] documented as of this encounter Visit Diagnoses Diagnosis Primary osteoarthritis of left hip- Primary Primary localized osteoarthrosis, pelvic region and thigh documented in this encounter Care Teams Senior Back End Java Developer Relationship Specialty Start Date End Date Taniya Grimes MD [address] 2L DIV OF [facility] [place] [address] PCP - General 07/01/20 05/10/22 Marylu Marie DO [address] 2L DIV OF [facility] [place] [address] Resident - PCP Student Resident 06/26/20 01/11/22 documented as of this encounter
--- OUTSIDE RECORDS SUMMARY | 2024-07-23 07:23 | XMS_ITS | Encounter Summary ---
Author Organization [facility] Health Address [address] [facility] [place] [address] Care Team Providers Care Agricultural Engineering Technicians Name Role Phone Marylu Marei DO Unavailable Taniya Grimes MD Primary Care Provider [phone] Encounter Details Date Type Department Care Team (Late st Contact Info) Description 11/14/2020 Orders Only [facility] - Orthopedics [address] [facility], [facility] [place] [phone] Cesar Brooks MD [address] [facility] [address] [place], [place] [phone] Primary osteoarthritis of left hip Social History Tobacco Use [...] st Contact Info) Description 07/25/2024 10:00 AM BILLING AND QUALITY TECHNICIAN [facility] [address] [place] [phone] oYsi Bustamante MD [address] [place] [address] 2L [place] [address] 07/26/2024 10:00 AM BILLING AND QUALITY TECHNICIAN Appointment [facility] DIAG[facility]STIC RAD [address] [place] [address] Neri Delgado MD [address] [place] [address] 07/26/2024 10:00 AM BILLING AND QUALITY TECHNICIAN Office Visit [facility] - ENT [address] [place] [phone] Myra Farmer, AEROSPACE MECHANIC [address] [place] [address] 2L DIV [place] [phone] 07/26/2024 11:15 AM BILLING AND QUALITY TECHNICIAN Office Visit [facility] - ENT [address] [place] [phone] Neri Delgado MD [address] [place] [address] 08/02/2024 2:20 PM BILLING AND QUALITY TECHNICIAN Appointment [facility] [address] [place] [address] 08/02/2024 3:00 PM BILLING AND QUALITY TECHNICIAN Office Visit [facility] - Hematology/Oncology [address] [place] [phone] Remi Beckett MD [address] [place] [phone] 08/18/2024 1:45 PM BILLING AND QUALITY TECHNICIAN Office Visit [facility] - ENT [address] [place] [phone] Neri Delgado MD [address] [place] [address] documented as of this encounter Results * XR HIP LEFT [...] is seen. There is severe arthritis with kbra-qu-fkyu contact superiorly, subchondral cysts, sclerosis, and osteophytes. [...] is seen. There is severe arthritis with krxt-oc-dgty contact superiorly, subchondral cysts, sclerosis, and osteophytes. [...] is seen. There is severe arthritis with xcsv-tc-sqyr contact superiorly, subchondral cysts, sclerosis, and osteophytes. [...] is seen. There is severe arthritis with tzkp-du-vhau contact superiorly, subchondral cysts, sclerosis, and osteophytes. [...] Primary localized osteoarthrosis, pelvic region and thigh Primary osteoarthritis of left hip Primary localized osteoarthrosis, pelvic region and thigh Primary osteoarthritis of left hip Primary localized osteoarthrosis, pelvic region and thigh documented in this encounter Care Teams Agricultural Engineering Technicians Relationship Specialty Start Date End Date Taniya Grimes MD [address] 2L DIV OF [facility] INTERNAL [place] [address] PCP - General 07/01/20 05/10/22 Marylu Marie DO [address] 2L DIV OF [facility] INTERNAL [place] [address] Resident - PCP Student Resident 06/26/20 01/11/22 documented as of this encounter
--- OUTSIDE RECORDS SUMMARY | 2024-07-23 07:23 | XMS_ITS | Encounter Summary ---
Author Organization [facility] Health Address [address] [facility] [place] [address] Care Team Providers Care Manufacturing Team Leader Name Role Phone Marylu Marie DO Unavailable Taniya Grimes MD Primary Care Provider [phone] Encounter Details Date Type Department Care Team (Late st Contact Info) Description 11/06/2020 Orders Only [facility]ology, Diabetes and Metabolism [address] [place] [address], [place] [phone] Yosi Bustamante MD [address] [place] [address] of Endocrinology [place], [place] [phone] Postoperative hypothyroidism; Thyroid cancer (HCC); Hypocalcemia Social History Tobacco Use Types Packs/Day Years [...] st Contact Info) Description 07/25/2024 10:00 AM PLASTERER APPRENTICE Office Visit [facility] - Endocrinology [address] [place] [phone] Yosi Bustamante MD [address] [place] [address] 2L [place] [address] 07/26/2024 10:00 AM PLASTERER APPRENTICE Appointment [facility] DIAGNOSTIC RAD [address] [place] [address] Neri Delgado MD [address] [place] [address] 07/26/2024 10:00 AM PLASTERER APPRENTICE Office Visit [facility] - ENT [address] [place] [phone] Myra Farmer, RAILWAY TRACK PLANT OPERATOR [address] [place] [address] 2L [place] [address] 07/26/2024 11:15 AM PLASTERER APPRENTICE Office Visit [facility] - ENT [address] [place] [phone] Neri Delgado MD [address] [place] [address] 08/02/2024 2:20 PM PLASTERER APPRENTICE Appointment [facility] [address] [place] [address] 08/02/2024 3:00 PM PLASTERER APPRENTICE Office Visit [facility] - Hematology/Oncology [address] [place] [phone] Remi Beckett MD [address] [place] [phone] 08/18/2024 1:45 PM PLASTERER APPRENTICE Office Visit [facility] - ENT [address] [place] [phone] Neri Delgado MD [address] [place] [address] documented as of this encounter Visit Diagnoses Diagnosis Postoperative hypothyroidism Postsurgical hypothyroidism Thyroid cancer (HCC) Malignant neoplasm of thyroid gland Hypocalcemia documented in this encounter Care Teams Manufacturing Team Leader Relationship Specialty Start Date End Date Taniya Grimes MD [address] [place] [address] 2L DIV OF [facility] [place] [phone] PCP - General 07/01/20 05/10/22 Marylu Marie DO [address] [place] [address] 2[place] [address] Resident - PCP Student Resident 06/26/20 01/11/22 documented as of this encounter
--- OUTSIDE RECORDS SUMMARY | 2024-07-23 07:24 | XMS_ITS | Encounter Summary ---
Author Organization [facility] Health Address [address] [place] [address] Care Team Providers Care Production Internship Name Role Phone Marylu Marie DO Unavailable [phone] Taniya Grimes MD Primary Care Provider Encounter Details Date Type Department Care Team (Latest Contact Info) Description 09/11/2020 2:00 PM SNOWBOARD INSTRUCTOR - 09/11/2020 11:59 PM SNOWBOARD INSTRUCTOR Hospital Encounter [facility] OP DRAW STATION [address] [place] [phone] Discharge Disposition: Home or Self Care Social [...] have Coronavirus / COVID-19? No / Unsure 09/11/2020 1:58 PM SNOWBOARD INSTRUCTOR documented as of this encounter Functional Status [...] by mouth as needed 01/13/2021 albuterol HFA (PROVENTIL;VENTOLIN;IN OAIR) 108 (90 Base) MCG/ACT inhaler Inhale 2 puffs by mouth every 4 hours as needed 07/05/2020 12/09/2020 atorvastatin (LIPITOR) 40 MG tabletIndications:Hype rlipidemia, unspecified hyperlipidemia type TAKE 1 TABLET BY MOUTH EVERYDAY AT BEDTIME 30 tablet 11 09/13/2020 07/22/2021 atorvastatin (LIPITOR) 40 MG tabletIndications:Hype rlipidemia, unspecified hyperlipidemia type Take 1 tablet by mouth at bedtime 30 tablet 11 09/06/2019 09/13/2020 B Complex Vitamins (VITAMIN B COMPLEX) tablet Take by mouth DAILY. 11/19/201612/09/ 021 calcitriol (ROCALTROL) 0.5 MCG capsule Take 1 (one) capsule by mouth 2 times daily 30 capsule 1 08/29/2020 10/03/2020 kuughxc-rnrsrnhws-kegh 333-133-5 MG tablet Take 1 tablet by mouth 3 times daily 10/14/2020 calcium-vitamin D (OS-YANNICK 500 + D) 500-200 mg-unit tablet Take 2 (two) tablets by mouth 3 times daily with meals 120 tablet 2 08/29/2020 10/14/2020 cetirizine (ZYRTEC) 10 MG tabletIndications:Barron rgic rhinitis, unspecified seasonality, unspecified trigger Take 1 (one) tablet by mouth once daily 30 tablet 5 09/05/2020 01/13/2021 clobetasol (TEMOVATE) 0.05 % ointment Apply to affected area 2 times daily 60 g 12/26/2019 01/13/2021 clonazePAM (KLONOPIN) 0.5 MG tablet Take 0.5 mg by mouth 2 times daily 03/29/2019 05/22/2021 fluticasone propionate (FLONASE) 50 MCG/ACT nasal spray [place] 2 sprays into each nostril 16 g 09/06/2019 04/11/2021 gabapentin (NEURONTIN) 300 MG capsuleIndications:Nicole favio osteoarthritis of left hip TAKE 1 CAPSULE BY MOUTH THREE TIMES A DAY 90 capsule 5 09/11/2020 03/25/2021 JJPURG-HRJRQFQNY-NVZ-C -HYAL PO Take 1 tablet by mouth 3 times daily 06/13/2023 HYDROcodone-acetaminop hen (NORCO) 5-325 MG tabletIndications: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 11/19/2016 05/22/2021 oxyCODONE, immediate release, (ROXICODONE) 5 MG tablet Take 1 (one) tablet by mouth every 4 hours as needed for Pain 48 tablet 08/29/2020 12/09/2020 pantoprazole EC (PROTONIX) 40 MG tabletIndications:Justo roesophageal reflux disease with esophagitis Take 1 tablet by mouth once daily 30 tablet 5 03/25/2020 10/07/2020 senna (SENOKOT) 8.6 MG tablet Take 1 (one) tablet by mouth once daily as needed for Constipation 45 tablet 08/29/2020 12/09/2020 vitamin E (TOCOPHERYL) 400 UNIT capsule Take 400 Units by mouth TID. 11/19/2016 01/13/2021 documented as of this encounter Plan of Treatment Upcoming Encounters Date Type Department Care Team (Late st Contact Info) Description 07/25/2024 10:00 AM SNOWBOARD INSTRUCTOR Office Visit [facility] - Endocrinology [address] [place] [phone] Yosi Bustamante MD [address] [place] [address] 2L Div [place] [address] 07/26/2024 10:00 AM SNOWBOARD INSTRUCTOR Appointment [facility]AGNOSTIC RAD [address] [place] [address] Neri Delgado MD [address] [place] [address] 07/26/2024 10:00 AM SNOWBOARD INSTRUCTOR Office Visit [facility] - ENT [address] [place] [phone] Myra Farmer, LABOR ECONOMICS PROFESSOR [address] [place] [address] 2L [place] [address] 07/26/2024 11:15 AM SNOWBOARD INSTRUCTOR Office Visit [facility] - ENT [address] [place] [phone] Neri Delgado MD [address] [place] [address] 08/02/2024 2:20 PM SNOWBOARD INSTRUCTOR Appointment [facility] [address] [place] [address] 08/02/2024 3:00 PM SNOWBOARD INSTRUCTOR Office Visit [facility] - Hematology/Oncology [address] [place] [phone] Remi Beckett MD [address] [place] [phone] 08/18/2024 1:45 PM SNOWBOARD INSTRUCTOR Office Visit [facility] - ENT [address] [place] [phone] Neri Delgado MD [address] [place] [address] documented as of this encounter Procedures Procedure Name Priority Date/Time Associated Diagnosis Comments RENAL FUNCTION PANEL Routine 09/11/2020 2:13 PM SNOWBOARD INSTRUCTOR Tracheal mass Lymphadenopathy of head and neck region TSH Routine 09/11/2020 2:13 PM SNOWBOARD INSTRUCTOR High cholesterol T4 FREE Routine 09/11/2020 2:13 PM SNOWBOARD INSTRUCTOR High cholesterol documented in this encounter Results * (ABNORMAL) RENAL FUNCTION PANEL (09/11/2020 2:13 PM SNOWBOARD INSTRUCTOR) BUN 13 7 - 26 mg/dL 09/11/2020 2:56 PM [facility] Creatinine 0.7 0.6 - 1.2 mg/dL 09/11/2020 2:56 PM [facility] Sodium 143 136 - 145 mmol/L 09/11/2020 2:56 PM [facility] Potassium 3.9 3.5 - 4.5 mmol/L 09/11/2020 2:56 PM [facility] Chloride 104 98 - 107 mmol/L 09/11/2020 2:56 PM [facility] CO2 29 22 - 29 mmol/L 09/11/2020 2:56 PM [facility] Glucose 91 70 - 115 mg/dL 09/11/2020 2:56 PM [facility] Albumin 3.0(L) 3.4 - 5.0 g/dL 09/11/2020 2:56 PM [facility] Calcium 8.5 8.4 - 10.2 mg/dL 09/11/2020 2:56 PM [facility] Phosphorus 5.5(H) 2.3 - 4.7 mg/dL 09/11/2020 2:56 PM [facility] Anion Gap 14 8 - 18 09/11/2020 2:56 PM [facility] BUN/Creatinine Ratio 19 7 - 23 09/11/2020 2:56 PM SNOWBOARD INSTRUCTOR [facility] Osmolality Calculated 296 270 - 300 mOsm/kg 09/11/2020 2:56 PM SNOWBOARD INSTRUCTOR [facility] eGFR >60 >60 mL/min/1.7 3 m2 09/11/2020 2:56 PM SNOWBOARD INSTRUCTOR [facility] Blood BLOOD SPECIMEN / Unknown Lab Venipuncture / Unknown 09/11/2020 2:13 PM SNOWBOARD INSTRUCTOR 09/11/2020 2:29 PM SNOWBOARD INSTRUCTOR Dionte Comer MD LAB - CHEMISTRY [facility] [address] [address], [place] [phone] * T4 FREE (09/11/2020 2:13 PM SNOWBOARD INSTRUCTOR) T4 Free 1.1 0.7 - 1.5 ng/dL 09/11/2020 3:14 PM SNOWBOARD INSTRUCTOR [facility] Blood BLOOD SPECIMEN / Unknown Lab Venipuncture / Unknown 09/11/2020 2:13 PM SNOWBOARD INSTRUCTOR 09/11/2020 2:29 PM SNOWBOARD INSTRUCTOR Dionte Comer MD LAB - CHEMISTRY [facility] Performing Organization Address City/[facility]/ZIP Co de Phone Number [address] [address], [place] [phone] * TSH (09/11/2020 2:13 PM SNOWBOARD INSTRUCTOR) TSH 2.526 0.350 - 4.940 uIU/mL 09/11/2020 3:14 PM SNOWBOARD INSTRUCTOR [facility] Blood BLOOD SPECIMEN / Unknown Lab Venipuncture / Unknown 09/11/2020 2:13 PM SNOWBOARD INSTRUCTOR 09/11/2020 2:29 PM SNOWBOARD INSTRUCTOR Dionte Comer MD LAB - CHEMISTRY [facility] [address] [address], [place] [phone] documented in this encounter Visit Diagnoses Diagnosis High cholesterol- Primary Pure hypercholesterolemia Tracheal mass Swelling, mass, 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 Lymphadenopathy of head and neck region documented in this encounter Care Teams Production Internship Relationship Specialty Start Date End Date Taniya Grimes MD [address] 2L DIV OF [facility] [address] PCP - General 07/01/20 05/10/22 Marylu Marie DO [address] [facility] 2[facility] DIV OF [facility] [place] [address] Resident - PCP Student Resident 06/26/20 01/11/22 documented as of this encounter
--- OUTSIDE RECORDS SUMMARY | 2024-07-23 07:24 | XMS_ITS | Encounter Summary ---
Author Organization [facility] Health Address [address] [facility] [place] [address] Care Team Providers Care Automatic Machines Supervisor Name Role Phone Marylu Marie DO Unavailable Taniya Grimes MD Primary Care Provider [phone] Encounter Details Date Type Department Care Team (Late st Contact Info) Description 10/11/2020 Orders Only [facility] [address] [place] [address], [place] [address] Taniya Grimes MD [address] [place] [address] DIV OF [facility] [place] [address] Hip pain Social History Tobacco Use Types Packs/Day [...] COVID-19? No / Unsure 09/11/2020 1:58 PM PATHOLOGY SPECIALIST documented as of this encounter Functional [...] as of this encounter Progress Notes * Taniya Grimes MD - 10/11/2020 6:14 PM CDT See previous notes for info Hip pain - Plan: traMADol (ULTRAM) 50 MG tablet documented in this encounter Plan of Treatment Upcoming Encounters Date Type Department Care Team (Late st Contact Info) Description 07/25/2024 10:00 AM PATHOLOGY SPECIALIST Office Visit [facility] - Endocrinology [address] [place] [phone] Yosi Bustamante MD [address] [place] [address] 2L [place] [address] 07/26/2024 10:00 AM PATHOLOGY SPECIALIST Appointment [facility] DIAGNOSTIC RAD [address] [place] [address] Neri Delgado MD [address] [place] [address] 07/26/2024 10:00 AM PATHOLOGY SPECIALIST Office Visit [facility] - ENT [address] [place] [phone] Myra Farmer, ZANI [address] [place] [address] 2L [place] [phone] 07/26/2024 11:15 AM PATHOLOGY SPECIALIST Office Visit [facility] - ENT [address] [place] [phone] Neri Delgado MD [address] [place] [address] 08/02/2024 2:20 PM PATHOLOGY SPECIALIST Appointment [facility] [address] [place] [address] 08/02/2024 3:00 PM PATHOLOGY SPECIALIST Office Visit [facility] - Hematology/Oncology [address] [place] [phone] Remi Beckett MD [address] [place] [phone] 08/18/2024 1:45 PM PATHOLOGY SPECIALIST Office Visit [facility] - ENT [address] [place] [phone] Neri Delgado MD [address] [place] [address] documented as of this encounter Visit Diagnoses Diagnosis Hip pain- Primary Pain in joint, pelvic region and thigh documented in this encounter Care Teams Automatic Machines Supervisor Relationship Specialty Start Date End Date Taniya Grimes MD [address] [place] [address] 2L DIV OF [facility] [place] [address] PCP - General 07/01/20 05/10/22 Marylu Marie DO [address] [place] [address] 2L DIV OF [facility] [place] [address] Resident - PCP Student Resident 06/26/20 01/11/22 documented as of this encounter
--- OUTSIDE RECORDS SUMMARY | 2024-07-23 07:24 | XMS_ITS | Encounter Summary ---
Author Organization [facility] Health Address [address] [facility] [place] [address] Care Team Providers Care Dolly Driver Name Role Phone Marylu Marie DO Unavailable Taniya Grimes MD Primary Care Provider Reason for Visit * Reason Comments Refill Request Encounter Details Date Type Department Care Team (Late st Contact Info) Description 10/01/2020 Refill [facility] [address] [facility] [address] [place] [address] Marylu Marie DO [address] [facility] 2L [facility] [place] [address] Refill Request Social History Tobacco Use Types [...] COVID-19? No / Unsure 09/11/2020 1:58 PM CLOTH SANDER documented as of this encounter Functional Status [...] Telephone Encounter - Zachary Hendricks RN - 10/07/2020 2:56 PM CDT Pt called again asking for the med to please be refilled d/t severe reflux and burning to her throat. Please advise. * Telephone Encounter - Esther Branch RN - 10/01/2020 12:09 PM CDT Refill Request Brisa Hogan ELE: 07-11-20May scheduled: Visit date not found LRF: 03-25-20 Qty Disp: 30 # of refills: 5 Allergies: No Known Allergies Pended Medication Order: Requested Prescriptions Pending Prescriptions Disp Refills ??? pantoprazole EC (PROTONIX) 40 MG tablet [Pharmacy Med Name: Pantoprazole Sodium 40 MG Tablet Delayed Release] 30 tablet 4 Sig: TAKE 1 TABLET BY MOUTH DAILY FOR STOMACH documented in this encounter Plan of Treatment Upcoming Encounters Date Type Department Care Team (Late st Contact Info) Description 07/25/2024 10:00 AM CLOTH SANDER [facility] Endocr[facility]ology [address] [place] [address], [facility] [place] [address] Yosi Bustamante MD [address] [place] [address] 07/26/2024 10:00 AM CLOTH SANDER Appointment [facility] DIAGNO[facility]IC RAD [address] [place] [address] Neri Delgado MD [address] [place] [address] 07/26/2024 10:00 AM CLOTH SANDER Office Visit [facility] - ENT [address] [place] [phone] Myra Farmer, TESTER ARMATURE OR FIELDS [address] [place] [address] 2L [place] [phone] 07/26/2024 11:15 AM CLOTH SANDER Office Visit [facility] - ENT [address] [place] [phone] Neri Delgado MD [address] [place] [address] 08/02/2024 2:20 PM CLOTH SANDER Appointment [facility] [address] [place] [address] 08/02/2024 3:00 PM CLOTH SANDER Office Visit [facility] - Hematology/Oncology [address] [place] [phone] Remi Beckett MD [address] [place] [phone] 08/18/2024 1:45 PM CLOTH SANDER Office Visit [facility] - ENT [address] [place] [phone] Neri Delgado MD [address] [place] [address] documented as of this encounter Visit Diagnoses Diagnosis Gastroesophageal reflux disease, unspecified whether esophagitis present- Primary Gastroesophageal reflux disease with esophagitis documented in this encounter Care Teams Dolly Driver Relationship Specialty Start Date End Date Taniya Grimes MD [address] [place] [address] 2L DIV OF GEN [place] [phone] PCP - General 07/01/20 05/10/22 Marylu Marie DO [address] [place] [address] Resident - PCP Student Resident 06/26/20 01/11/22 documented as of this encounter
--- OUTSIDE RECORDS SUMMARY | 2024-07-23 07:24 | XMS_ITS | Encounter Summary ---
Author Organization [facility] Health Address [address] [facility] [place] [address] Care Team Providers Care Coat Joiner Name Role Phone Marylu Marie DO Unavailable [phone] Taniya Grimes MD Primary Care Provider [phone] Reason for Visit * Reason Onset Date Comments Med Question 10/03/2020 Encounter Details Date Type Department Care Team (Late st Contact Info) Description 10/03/2020 Telephone [facility] [address] [place] [address], [place] [address] Taniya Grimes MD [address] [place] [address] OF [facility] [place] [address] Med Question Social History Tobacco Use Types [...] COVID-19? No / Unsure 09/11/2020 1:58 PM STATION ENGINEER documented as of this encounter Functional [...] Telephone Encounter - Lexii Brown RN - 10/08/2020 9:06 AM CDT Images from the original note were not included. Marylu Marie, DO You 17 hours ago (3:18 PM) Follow up visit arranged with Endocrinology, Dr. Bustamante on 10/14. Will refill 30 days of medication. Please have Ms. Hogan discuss this medication with Dr. Bustamante at upcoming visit. Called pt and left message to inform of message above from provider. * Telephone Encounter - Lexii Brown RN - 10/03/2020 1:12 PM CDT Refill Request Pt states was prescribed calcitriol per Dr Flores while in hospital and asked if should still continue or not. States has first appt with oncologist is 10/14 and had contacted orthopedist for pain medications. Brisa Hogan ELE: 07/11/20 NOV scheduled: Visit date not found LRF: 08/29/20 Qty Disp: 30 # of refills: 1 Allergies: No Known Allergies Pended Medication Order: Requested Prescriptions Pending Prescriptions Disp Refills ??? calcitriol (ROCALTROL) 0.5 MCG capsule 30 capsule 1 Sig: Take 1 (one) capsule by mouth 2 times daily documented in this encounter Plan of Treatment Upcoming Encounters Date Type Department Care Team (Late st Contact Info) Description 07/25/2024 10:00 AM STATION ENGINEER Office Visit [facility] Group - Endocrinology [address] [facility], [place] [address] Yosi Bustamante MD [address] [place] [address] 2L [place] [address] 07/26/2024 10:00 AM STATION ENGINEER Appointment [facility] DIAGNOSTIC RAD [address] [place] [phone] Neri Delgado MD [address] [place] [address] 07/26/2024 10:00 AM STATION ENGINEER Office Visit [facility] - ENT [address] [place] [phone] Myra Farmer, ELECTROLYSIS INVESTIGATOR [address] [place] [address] 2L [place] [phone] 07/26/2024 11:15 AM STATION ENGINEER Office Visit [facility] - ENT [address] [place] [phone] Neri Delgdao MD [address] [place] [address] 08/02/2024 2:20 PM STATION ENGINEER Appointment [facility] [address] [place] [address] 08/02/2024 3:00 PM STATION ENGINEER Office Visit [facility] Physician Group - Hematology/Oncology [address] [place] [phone] Remi Beckett MD [address] [place] [phone] 08/18/2024 1:45 PM STATION ENGINEER Office Visit [facility] ENT [address] [place] [phone] Neri Delgado MD [address] [place] [address] documented as of this encounter Visit Diagnoses Not on filedocumented in this encounter Care Teams Coat Joiner Relationship Specialty Start Date End Date Taniya Grimes MD [address] [facility] 2L DIV OF [facility] [place] [address] PCP - General 07/01/20 05/10/22 Marylu Marie DO [address] [facility] 2L DIV OF [facility] [place] [address] Resident - PCP Student Resident 06/26/20 01/11/22 documented as of this encounter
--- OUTSIDE RECORDS SUMMARY | 2024-07-23 07:24 | XMS_ITS | Encounter Summary ---
Author Organization [facility] Health Address [address] [place] [address] Care Team Providers Care Ordnance Officer Name Role Phone Marylu Marie DO Unavailable Taniya Grimes MD Primary Care Provider Reason for Visit * Reason Comments Refill Request Encounter Details Date Type Department Care Team (Late st Contact Info) Description 09/11/2020 Refill [facility] [address] [facility] 206 [place] [address] Marylu Marie DO [address] [facility] [address] [facility] [place] [address] Refill Request Social History Tobacco Use Types [...] COVID-19? No / Unsure 09/11/2020 1:58 PM ACADEMIC TUTOR documented as of this encounter Functional Status [...] Telephone Encounter - Sita Cotter RN - 09/11/2020 4:11 PM ACADEMIC TUTOR Refill Request Brsia Hogan ELE: 07/11/20 NOV scheduled: none LRF: 09/06/19 Qty Disp: 30 # of refills: 11 Allergies: No Known Allergies Pended Medication Order: Requested Prescriptions Pending Prescriptions Disp Refills ??? atorvastatin (LIPITOR) 40 MG tablet [Pharmacy Med Name: ATORVASTATIN 40 MG TABLET] 30 tablet 11 Sig: TAKE 1 TABLET BY MOUTH EVERYDAY AT BEDTIME EMIC TUTOR documented in this encounter Plan of Treatment Upcoming Encounters Date Type Department Care Team (Late st Contact Info) Description 07/25/2024 10:00 AM ACADEMIC TUTOR Office Visit [facility] - Endocrinology [address] [place] [phone] Yosi Bustamante MD [address] [place] [address] 2L Div [place] [address] 07/26/2024 10:00 AM ACADEMIC TUTOR Appointment [facility]NO[facility] RAD [address] [place] [phone] Neri Delgado MD [address] [place] [address] 07/26/2024 10:00 AM ACADEMIC TUTOR Office Visit [facility] - ENT [address] [place] [phone] Myra Farmer, ZAIN [address] [place] [address] 2L [place] [phone] 07/26/2024 11:15 AM ACADEMIC TUTOR Office Visit [facility] - ENT [address] [place] [phone] Neri Delgado MD [address] [place] [address] 08/02/2024 2:20 PM ACADEMIC TUTOR Appointment [facility] [address] [place] [address] 08/02/2024 3:00 PM ACADEMIC TUTOR Office Visit [facility] - Hematology/Oncology [address] [place] [phone] Remi Beckett MD [address] [place] [phone] 08/18/2024 1:45 PM ACADEMIC TUTOR [facility] - ENT [address] [place] [phone] Neri Delgado MD [address] [place] [address] documented as of this encounter Visit Diagnoses Diagnosis Hyperlipidemia, unspecified hyperlipidemia type documented in this encounter Care Teams Ordnance Officer Relationship Specialty Start Date End Date Taniya Grimes MD [address] [place] [address] 2L DIV OF [facility] [place] [address] PCP - General 07/01/20 05/10/22 Marylu Marie DO [address] [place] [address] 2L DIV [place] [address] Resident - PCP Student Resident 06/26/20 01/11/22 documented as of this encounter
--- OUTSIDE RECORDS SUMMARY | 2024-07-23 07:24 | XMS_ITS | Encounter Summary ---
Author Organization [facility] Health Address [address] [facility] [place] [address] Care Team Providers Care Silicator Name Role Phone Marylu Marie DO Unavailable Taniya Grimes MD Primary Care Provider Reason for Visit * Reason Onset Date Comments Medication Prior Auth Request 10/30/2020 Encounter Details Date Type Department Care Team (Late st Contact Info) Description 10/30/2020 Telephone [facility] End[facility]inology, Diabetes and Metabolism [address] [place] [address], [facility] [place] [phone] Yosi Bustamante MD [address] [place] [address] [place] [address] Medication Prior Auth Request Social History Tobacco [...] Telephone Encounter - Jane Abdi RN - 10/31/2020 9:26 AM CDT PA for Thyrogen was approved by insurance. Pharmacy notified. * Telephone Encounter - Jane Abdi RN - 10/30/2020 1:34 PM CDT Insurance requires prior auth for Thyrogen. Prior auth request submitted on line at [employer]. Office notes submitted with request Yes. Waiting for insurance response. Cover My Meds perez:[id number] documented in this encounter Plan of Treatment Upcoming Encounters Date Type Department Care Team (Late st Contact Info) Description 07/25/2024 10:00 AM REHABILITATION CONSTRUCTION SPECIALIST Office Visit [facility] - Endocrinology [address] [place] [phone] Yosi Bustamante MD [address] [place] [address] 2L [place] [address] 07/26/2024 10:00 AM REHABILITATION CONSTRUCTION SPECIALIST Appointment [facility] DIAG[facility] RAD [address] [place] [phone] Neri Delgado MD [address] [place] [address] 07/26/2024 10:00 AM REHABILITATION CONSTRUCTION SPECIALIST Office Visit [facility] - ENT [address] [place] [phone] Myra Farmer, RN CIRCULATING [address] [place] [address] 2L [place] [phone] 07/26/2024 11:15 AM REHABILITATION CONSTRUCTION SPECIALIST Office Visit [facility] - ENT [address] [place] [phone] Neri Delgado MD [address] [place] [address] 08/02/2024 2:20 PM REHABILITATION CONSTRUCTION SPECIALIST Appointment [facility] [address] [place] [address] 08/02/2024 3:00 PM REHABILITATION CONSTRUCTION SPECIALIST Office Visit [facility] Group - Hematology/Oncology [address] [place] [phone] Remi Beckett MD [address] [place] [phone] 08/18/2024 1:45 PM REHABILITATION CONSTRUCTION SPECIALIST Office Visit [facility] - ENT [address] [place] [phone] Neri Delgado MD [address] [place] [address] documented as of this encounter Visit Diagnoses Not on filedocumented in this encounter Care Teams Silicator Relationship Specialty Start Date End Date Taniya Grimes MD [address] [place] [address] 2L DIV OF [facility] [place] [place] [address] PCP - General 07/01/20 05/10/22 Marylu Marie DO [address] [place] [address] 2L DIV OF [facility] [place] [address] Resident - PCP Student Resident 06/26/20 01/11/22 documented as of this encounter
--- OUTSIDE RECORDS SUMMARY | 2024-07-23 07:24 | XMS_ITS | Encounter Summary ---
Author Organization [facility] Health Address [address] [facility] [place] [address] Care Team Providers Care Sponge Clipper Name Role Phone Marylu Marie DO Unavailable Taniya Grimes MD Primary Care Provider Reason for Visit * Reason Comments Thyroid Cancer Thyroid Problem hypothyroidism General hypocalcemia General hypoparathyroidism Thyroid Problem s/p thyroidectomy Encounter Details Date Type Department Care Team (Latest Contact Info) Description 10/14/2020 10:20 AM CDT Office Visit [facility] [address] [place] [address], [place] [phone] Yosi Bustamante MD [address] [place] [address] [place] [address] Postoperative hypothyroidism (Primary Dx); Thyroid cancer (HCC); [...] Sign Reading Time Taken Comments Blood Pressure 118/72 10/14/2020 10:27 AM CDT Pulse 81 10/14/2020 10:27 AM CDT Temperature 36.2 ??C (97.1 ??F) 10/14/2020 10:27 AM C DT Respiratory Rate - - Oxygen Saturation 99% 10/14/2020 10:27 AM CDT Inhaled Oxygen Concentration - - Weight 68 kg (150 lb) 10/14/2020 10:27 AM CDT Height 157.5 cm (5' 2) 10/14/2020 10:27 AM CDT Body Mass Index 27.44 10/14/2020 10:27 AM CDT documented in this encounter Functional [...] this encounter Patient Instructions * Patient Instructions* Fabian Bernstein - 10/14/2020 10:27 AM CDT How to Contact Us Between Office Visits For appointments, call us at and select option 1 or you can send a [employer] message. Normal business hours are from 8:00 am to 4:30 pm Wednesday through Wednesday. Fax# is [phone]. To request refills, please contact your pharmacy who will reach out to us. If you have changes to your refill prescription, you will need to contact us directly at [phone] and select option 2 orsend your doctor a [employer] message. We request that all prescription refills be requested during regular office phone hours. If your prescription requires a prior authorization, it may take several days for us to get approval from [employer] company before we can refill your prescription. Please do not wait until you are completely out before contacting us. If you have an Insulin Pump, Meter or a Continuous Glucose Monitor, please bring it to every visit and present it to the front clerk staff when you arrive in clinic. If you have a medical emergency, please call 911 or go to the nearest Emergency Room. After hours urgent calls that cannot wait until phone lines are open on the next business day are given to the Lead Architect physician solar panel installation supervisor. Please call [phone] and identify yourself as a patient in our practice needing to speak to Lead Architect. The walking dragline operator will contact the physician solar panel installation supervisor. You can generally expect a return call within 30 minutes. On weekends, physicians are seeing hospitalizedpatients and there may be a longer wait. Test and laboratory results: Our practice typically reports lab and test results through letters orMyChart, the [facility] online patient portal. Please allow 5 days from when your tests are completed to receive the results. IF GOING TO [facility] or [employer]-MUST TAKE LAB ORDER WITH YOU !! If you did not complete your labs at a [facility] facility or at a commercial lab ([employer], [employer]) then we may not have received the results. Please contact the lab and request that they are faxed to us. Visit our website at [email or web address] for additional information about [facility] and an interactive health encyclopedia. [facility]'s missed appointment policy is: Patients with 3 consecutively missed appointments OR 3 missed appointments in a 12 month period will no longer be seen by Endocrinology. They will be asked to seek consultation outside of [facility]. A missed appointment is defined as: ??? Arriving to a scheduled appointment too late to be seen (Patients who arrive to clinic later than their scheduled appointment time may not be seen) ??? Not showing up for an appointment ??? An appointment cancelled less than 24 hours in advance NEW OFFICE: [facility], 2nd Floor, [address] [place] [address] BP 118/72 (BP SITE: RIGHT ARM, BP POSITION: SITTING, BP CUFF SIZE: 11) Pulse 81 Temp 97.1 ??F (36.2??C) (Temporal) Ht 5' 2 (1.575 m) Wt 150 lb (68 kg) SpO2 99% BMI 27.44 kg/m2 Plan Continue current dose of thyroid medication Levothyroxine 112 mcg daily New prescription to pharmacy Continue calcitriol twice a day 0.5 mcg twice a day New prescription to pharmacy Decrease the calcium 500 and vitamin D To one pill three times a day with food Continue calcium, magnesium, zinc at one pill three times a day Instructions for taking levothyroxine Brand name is preferred Take thyroid pill all by itself Take thyroid pill one hour before food or 2 to 3 hours after food Heat, humidity, and direct sunlight will cause a loss of potency Never store thyroid pill in the bathroom Lab soon Standing order for lab every 8 weeks for medication adjustment Return in three months Neck ultrasound in feb or mar, 2021 , probably after radioactive iodine ablation Follow up radioactive whole body scan one week after ablation dose and six months after ablation dose Plans for radioactive iodine ablation Prescription for thyrogen (rhTSH) given to nurse When drug available will schedule radioactive iodine ablation Lab tests before and after thyrogen injection Low iodine diet for two weeks before the radioactive iodine LOW-IODINE DIET GUIDELINES - SUMMARY ThyCa: Thyroid [...] ?? Most chocolate (due to milk content). [place] powder and some dark chocolates are allowed. [...] without salt, except soybeans and (according to [facility] diet) afew other beans. ?? Unsalted [...] chicken or beef, oil and vinegar dressing [place] with Matzo crackers, plain peanut butter, jelly documented in this encounter Progress Notes * Yosi Bustamante MD - 10/14/2020 10:20 AM CDT HISTORY / PROGRESS NOTE Date: 10/14/2020 Chief Complaint or Purpose for Referral: THYROID CANCER HYPOTHYROIDISM HYPOPARATHYROIDISM HYPOCALCEMIA History of Present Illness: 60 YEAR OLD WHITE FEMALE NEW PATIENT No dysphagia No dyspnea No dysphonia No change size of neck No neck pain or discomfort nervousness(+) Anxiety issues (+) No shakiness No palpitations Weight stable since last visit Wt Readings from Last 3 Encounters: 10/14/20 150 lb (68 kg) 09/11/20 147 lb (66.7 kg) 08/19/20 154 lb (69.9 kg) BM daily No diarrhea No constipation nocturia 1-2 times per night No edema No proximal muscle weakness Appetite good No nausea No vomiting No muscle cramps LAB Results for BRISA CAICEDO ( ) as of 10/14/2020 13:11 Ref. Range 03/07/2020 15:19 08/21/2020 04:25 09/11/2020 14:13 TSH Latest Ref Range: 0.350 - 4.940 uIU/mL 1.520 2.526 T4 Free Latest Ref Range: 0.7 - 1.5 ng/dL 1.1 Thyroglobulin by ANTONIETA Latest Ref Range: 1.5 - 38.5 ng/mL 192.2 (H) Thyroglobulin Antibody Latest Ref Range: 0.0 - 0.9 IU/mL <1.0 Results for BRISA CAICEDO ( ) as of 10/14/2020 07:48 Ref. Range 03/07/2020 15:19 08/21/2020 04:25 09/11/2020 14:13 TSH Latest Ref Range: 0.350 - 4.940 uIU/mL 1.520 2.526 T4 Free Latest Ref Range: 0.7 - 1.5 ng/dL 1.1 Thyroglobulin by ANTONIETA Latest Ref Range: 1.5 - 38.5 ng/mL 192.2 (H) Thyroglobulin Antibody Latest Ref Range: 0.0 - 0.9 IU/mL <1.0 Results for BRISA CAICEDO ( ) as of 10/14/2020 07:48 Ref. Range 08/29/2020 04:08 09/11/2020 14:13 Sodium Latest Ref Range: 136 - 145 mmol/L 142 143 Potassium Latest Ref Range: 3.5 - 4.5 mmol/L 3.9 3.9 Chloride Latest Ref Range: 98 - 107 mmol/L 103 104 CO2 Latest Ref Range: 22 - 29 mmol/L 27 29 Anion Gap Latest Ref Range: 8 - 18 16 14 BUN Latest Ref Range: 7 - 26 mg/dL 11 13 Creatinine Latest Ref Range: 0.6 - 1.2 mg/dL 0.7 0.7 eGFR Latest Ref Range: >60 mL/min/1.73 m2 >60 >60 Glucose Latest Ref Range: 70 - 115 mg/dL 101 91 Calcium Latest Ref Range: 8.4 - 10.2 mg/dL 8.0 (L) 8.5 Ionized Calcium Whole Blood Latest Units: mmol/L 1.05 Adjusted Ionized Calcium Latest Ref Range: 1.19 - 1.34 mmol/L 1.07 (L) Magnesium Latest Ref Range: 1.6 - 2.6 mg/dL 2.3 Phosphorus Latest Ref Range: 2.3 - 4.7 mg/dL 4.9 (H) 5.5 (H) BUN/Creatinine Ratio Latest Ref Range: 7 - 23 16 19 Albumin Latest Ref Range: 3.4 - 5.0 g/dL 2.9 (L) 3.0 (L) pH Whole Blood Latest Ref Range: 7.35 - 7.45 7.44 Osmolality Calculated Latest Ref Range: 270 - 300 mOsm/kg 294 296 Collected: 04/18/2020 ??4:07 PM Status: Final result ?Visible to patient: No (not released) Dx: Thyroid nodule 0 Result Notes Component Specimen Adequacy Adequate cellularity for evaluation. Final Diagnosis Thyroid nodule, right, US-FNA: - Benign - Consistent with benign follicular nodule Collected: 08/01/2020 ??2:51 PM Status: Final result ?Visible to patient: No (not released) Dx: Thyroid nodule 0 Result Notes Component Specimen Adequacy Adequate cellularity for evaluation. 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 at ??3:26 PM Collected: 08/19/2020 ??9:43 AM Status: Edited Result - FINAL ?Visible to patient: No (not released) Dx: Hoarseness; Tracheal mass; Paralysis ... 0 Result Notes Component Final Diagnosis Lymph [...] involved by tumor ?? at ??2:35 PM Synoptic Report THYROID GLAND 8th Edition [...] NODES Number of Lymph Nodes Involved 10 [place] Levels Involved Level Right Lateral Level II Right Lateral Level III Right Lateral Level IV Left Lateral Level III Left Lateral Level IV Left Lateral Level V Size of Largest Metastatic Deposit (Centimeters) 2.4 cm Extranodal Extension (JADON) Present Number of Lymph Nodes Examined 83 [place] Levels Examined Level Right Lateral Level II Right Lateral Level III Right Lateral Level IV Right Lateral Level V Left Lateral Level II Left Lateral Level III Left Lateral Level IV Left Lateral Level V PATHOLOGIC STAGE CLASSIFICATION (pTNM, AJCC 8th Edition) Primary Tumor (pT) pT4a Regional Lymph Nodes (pN) pN1b . Resulting Agency [facility] Specimen Collected: 08/19/20 ??9:43 AM Last Resulted: 09/03/20 ??7:23 AM (Brief 1-3; Ext. >4) Past Medical History: Diagnosis Date ??? Anxiety [...] LARYNGOSCOPY WITH BIOPSY ??? Polypectomy cervical Family History Problem Relation Name Age of [...] Alive ??? Thyroid Disease Neg Hx Social History Socioeconomic History ??? Marital status: Spouse name: Not on file ??? Number of children: Not on file ??? Years of education: Not on file ??? Highest education level: Not on file Occupational History ??? Not on file Tobacco [...] cocaine ??? Sexual activity: Yes Partners: Male Other Topics Concern ??? Not on file Social History Narrative Lives with , also current tobacco user, has COPD. 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 Difficulty of Paying Living Expenses: Food Insecurity: ??? Worried About Running Out of Food in the Last Year: ??? Ran Out of Food in the Last Year: Transportation Needs: ??? Lack of Transportation (Medical): ??? Lack of Transportation (Non-Medical): Physical Activity: ??? Days of Exercise per Week: ??? Minutes of Exercise per Session: Stress: ??? Feeling of Stress : Social Connections: ??? Frequency of Communication with Friends and Family: ??? Frequency of Social Gatherings with Friends and Family: ??? Attends Shinto Services: ??? Active Member of Clubs or Organizations: ??? Attends Club or Organization Meetings: ??? Marital Status: Intimate Partner Violence: ??? Fear of Current or Ex-Partner: ??? Emotionally Abused: ??? Physically Abused: ??? Sexually Abused: Current Outpatient Medications Medication Sig Dispense Refill ??? Acetaminophen (TYLENOL [...] in the Blood 60 capsule 11 ??? rrivwrq-lmqpxzymg-wlrm 333-133-5 MG tablet Take 1 (one) tablet [...] fluticasone propionate (FLONASE) 50 MCG/ACT nasal spray [place] 2 sprays into each nostril 16 g 0 ??? gabapentin (NEURONTIN) 300 MG capsule TAKE 1 CAPSULE BY MOUTH THREE TIMES A DAY 90 capsule 5 ??? [id number]-[id number]-XRY-C-HYAL PO Take 1 tablet by mouth 3 times daily ??? levothyroxine (SYNTHROID) 112 MCG tablet Take 1 (one) tablet by mouth daily before breakfast Reasons: Underactive Thyroid, Cancer of Thyroid 30 tablet 11 ??? meloxicam (MOBIC) 7.5 MG tablet TAKE 1 TABLET BY MOUTH EVERY DAY 60 tablet 2 ??? [place]-3 Fatty Acids (FISH OIL) 1000 MG capsule Take 1,000 mg by mouth 3 times daily with meals. ??? oxyCODONE, immediate release, (ROXICODONE) 5 MG tablet Take 1 (one) tablet by mouth every 4 hours as needed for Pain (Patient not taking: Reported on 10/14/2020) 48 tablet 0 ??? pantoprazole EC (PROTONIX) 40 MG tablet TAKE 1 TABLET BY MOUTH DAILY FOR STOMACH 30 tablet 5 ??? PARoxetine (PAXIL) 40 MG tablet (Patient taking differently: Take 40 mg by mouth once daily ) 2 ??? senna (SENOKOT) 8.6 MG tablet Take 1 (one) tablet by mouth once daily as needed for Constipation (Patient not taking: Reported on 10/14/2020) 45 tablet 0 ??? traMADol (ULTRAM) 50 MG tablet Take one tablet up to 2-3 times a day NEEDED for pain 12 tablet 0 ??? traZODone (DESYREL) 50 MG tablet Take 50 mg by mouth at bedtime ??? vitamin E (TOCOPHERYL) 400 UNIT capsule Take 400 Units by mouth TID. No current facility-administered medications for this visit. No Known Allergies Review of Systems: Est: 2-9, Complete 10 Level 4 or Level 5 > 10 systems Constitutional: fatigue Eyes: WNL ENT/Mouth: WNL Cardiovascular: WNL Resp: WNL GI: WNL : nocturia Musculoskeletal: pain Skin: WNL Neuro: headache Psychiatric: mood and insomnia Endocrine: WNL Hem/Lymph: anemia Allergic/Immunol: WNL All other systems negative: WNL Physical Exam: Constitutional: Vital Signs: BP 118/72 (BP SITE: RIGHT ARM, BP POSITION: SITTING, BP CUFF SIZE: 11)Pulse 81 Temp 97.1 ??F (36.2 ??C) (Temporal) Ht 5' 2 (1.575 m) Wt 150 lb (68 kg) SpO2 99% BMI 27.44 kg/m2 Well developed, well nourished, white female, no acute distress, alert and oriented, normocephalic Appearance: WNL Eyes: Conjunctiva/lids WNL and EOM Intact ENT, Mouth: Hearing WNL and External ear/nose WNL Neck: No masses, symmetrical, Thyroid not enlarged and SURG SCAR ANT AND LAT NECK Resp.:Effort nonlabored and Ausculation WNL CVS: S1, S2; no murmurs and No carotid bruits, pulse wnl Chest: NOT EXAMINED GI/Abd: NOT EXAMINED : NOT APPLICABLE Lymph: Neck WNL MS: Station and gait WNL, Stable without dislocation, laxity, ROM without pain, no contracture and Muscle strength and tone WNL Areas Assessed: Head/neck, R/L upper extremities, Digits/nails and Inspection/palpatation of above WNL Skin: No rashes/lesions/ulcers and SKIN NORMAL TEXTURE AND TURGOR Neuro: Cranial nerves intact and DTR WNL Psych: Judgement/insight WNL, Oriented X 3, Memory WNL and Mood/affect WNL ASSESSMENT Patient Active Problem List: Psychophysiologic insomnia Chronic fatigue Snoring Obsessive-compulsive disorder Headache Primary osteoarthritis of left hip Nicotine dependence High cholesterol Psoriasis Complete paralysis of right vocal cord Hoarseness Tracheal mass Lymphadenopathy of head and neck region Cellulitis Postoperative hypothyroidism Thyroid cancer Hypocalcemia Other hypoparathyroidism Plan Continue current dose of thyroid medication Levothyroxine 112 mcg daily New prescription to pharmacy GOAL FOR TSH 0.1-0.4 Continue calcitriol twice a day 0.5 mcg twice a day GOAL FOR CALCIUM LEVEL IN BLOOD 8-9 MG/DL New prescription to pharmacy Decrease the calcium 500 and vitamin D To one pill three times a day with food Continue calcium, magnesium, zinc at one pill three times a day Instructions for taking levothyroxine Brand name is preferred Take thyroid pill all by itself Take thyroid pill one hour before food or 2 to 3 hours after food Heat, humidity, and direct sunlight will cause a loss of potency Never store thyroid pill in the bathroom Lab soon Standing order for lab every 8 weeks for medication adjustment Return in three months Neck ultrasound in feb or mar, 2021 , probably after radioactive iodine ablation Follow up radioactive whole body scan one week after ablation dose and six months after ablation dose Plans for radioactive iodine ablation Prescription for thyrogen (rhTSH) given to nurse When drug available will schedule radioactive iodine ablation Lab tests before and after thyrogen injection Low iodine diet for two weeks before the radioactive iodine DISCUSSED PLANS FOR FOLLOW UP, THYROID HORMONE DOSE, TSH DESIRED RANGE, NECK ULTRASOUND , NUC MED STUDIES AND THYROGEN ORDERING LOW-IODINE DIET GUIDELINES - SUMMARY ThyCa: Thyroid [...] ?? Most chocolate (due to milk content). [place] powder and some dark chocolates are allowed. [...] chicken or beef, oil and vinegar dressing [place] with Matzo crackers, plain peanut butter, jelly Postoperative hypothyroidism - Plan: levothyroxine (SYNTHROID) 112 MCG tablet, calcitriol (ROCALTROL) 0.5 MCG capsule, TSH, RENAL FUNCTION PANEL, PTH INTACT W/O CALCIUM, VITAMIN D 25-HYDROXY, THYROGLOBULIN REFLEX PROFILE Thyroid cancer - Plan: levothyroxine (SYNTHROID) 112 MCG tablet, calcitriol (ROCALTROL) 0.5 MCG capsule, TSH, RENAL FUNCTION PANEL, PTH INTACT W/O CALCIUM, VITAMIN D 25-HYDROXY, THYROGLOBULIN REFLEX PROFILE Hypocalcemia - Plan: levothyroxine (SYNTHROID) 112 MCG tablet, calcitriol (ROCALTROL) 0.5 MCG capsule, TSH, RENAL FUNCTION PANEL, PTH INTACT W/O CALCIUM, VITAMIN D 25-HYDROXY, THYROGLOBULIN REFLEX PROFILE Other hypoparathyroidism Yosi Bustamante MD Professor of Internal Medicine Division of Endocrinology Department of Internal Medicine documented in this encounter Plan of Treatment Upcoming Encounters Date Type Department Care Team (Late st Contact Info) Description 07/25/2024 10:00 AM BENCH GRINDER Office Visit [facility] - Endocrinology [address] [place] [address], [place] [address] Yosi Bustamante MD [address] [place] [address] [place] [address] 07/26/2024 10:00 AM BENCH GRINDER Appointment [facility] [address] [place] [address] Neri Delgado MD [address] [place] [phone] 07/26/2024 10:00 AM BENCH GRINDER Office Visit [facility] - ENT [address] [place] [phone] Myra Farmer, SPRAY TECHNICIAN [address] [place] [address] [place] [phone] 07/26/2024 11:15 AM BENCH GRINDER Office Visit [facility] - ENT [address] [place] [phone] Neri Delgado MD [address] [place] [phone] 08/02/2024 2:20 PM BENCH GRINDER Appointment [facility] [address] [place] [phone] 08/02/2024 3:00 PM BENCH GRINDER Office Visit [facility] - Hematology/Oncology [address] [place] [phone] Remi Beckett MD [address] [place] [phone] 08/18/2024 1:45 PM BENCH GRINDER Office Visit [facility] - ENT [address] [place] [phone] Neri Delgado MD [address] [place] [phone] documented as of this encounter Visit Diagnoses Diagnosis Postoperative hypothyroidism- Primary Postsurgical hypothyroidism Thyroid cancer (HCC) Malignant neoplasm of thyroid gland Hypocalcemia Other hypoparathyroidism (HCC) documented in this encounter Care Teams Sponge Clipper Relationship Specialty Start Date End Date Taniya Grimes MD [address] [facility] [place] [place] [address] PCP - General 07/01/20 05/10/22 Marylu Marie DO [address] [facility] [place] [place] [address] Resident - PCP Student Resident 06/26/20 01/11/22 documented as of this encounter
--- OUTSIDE RECORDS SUMMARY | 2024-07-23 07:24 | XMS_ITS | Encounter Summary ---
Author Organization [facility] Address [address] [place] [address] Care Team Providers Care Management Trainer Name Role Phone Marylu Marie DO Unavailable [phone] Taniya Grimes MD Primary Care Provider Reason for Visit * Reason Onset Date Comments Pain Hip 10/11/2020 Encounter Details Date Type Department Care Team (Late st Contact Info) Description 10/11/2020 Telephone [facility] [address] [place] [address], [place] [address] Taniya Grimes MD [address] [place] [address] OF [facility] [place] [address] Pain Hip Social History Tobacco [...] COVID-19? No / Unsure 09/11/2020 1:58 PM AVIATION WARFARE SYSTEMS OPERATOR documented as of this encounter Functional [...] encounter Miscellaneous Notes * Telephone Encounter - Marylu Marie DO - 10/11/2020 8:43 PM CDT Telephone Encounter Contacted Ms. Hogan on mobile phone. Successful contact. She reports increase in L hip pain as unable to take ibuprofen, which previous alleviated pain. Was taking oxycodone during hospitalization and norco following hospitalization for post-surgical pain, however is now out of both medications. Oxycodone helped most. Tylenol at max dose 4g/day not alleviating hip pain. Plan was to undergo hip replacement (follows with orthopedics), however following recent CA diagnosis, surgical planning puton hold. She feels this pain is different than previous. Denies recent injury. No falls at home. Ambulating with assistance of walker, however is unable to bear weight on the L. Reports she has to save tylenol for headaches since she is unable to sleep well throughout the night. 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 Remains hoarse over the phone. Tearful as well. Following discussion with Dr. Grimes, will prescribe short course of tramadol. Encouraged patient to call orthopedics for evaluation of acute on chronic L hip pain. Has appointment on 10/[address] Bustamante to discuss plan for thyroid malignancy. She was in agreement. Marylu Marie DO 10/11/2020 8:53 PM * Telephone Encounter - Taniya Grimes MD - 10/11/2020 5:[address] Gutierrez Marie to contact pt. * Telephone Encounter - Taniya Grimes MD - 10/11/2020 5:24 PM CDT States still 'healing from cancer surgery' and 'hard for me to talk'. States when in hospital gave her oxycodone 5 mg for 'throat pain' and helped with hip pain also. States sent home with oxycodone initially and then went to Dr Comer and prescribed norco for throat pain.States out of norco now and states 'my hip is so bad I can't function' and 'can't sleep.' States has appt 10/[address] Comer told her can have hip surgery after cleared per oncology. States unable to reach orthopedics nurse until today and was told to call PCP to get pain medications. States taking maximum dose of tylenol/day and not effective for severe hip pain. States 'need relief'and states prefers oxycodone be ordered through [facility] in [place].Instructed to apply ice to hip intermittently as can tolerate anduse heat to area intermittently but warned not to fall asleep on heating pad. Please advise. documented in this encounter Plan of Treatment Upcoming Encounters Date Type Department Care Team (Late st Contact Info) Description 07/25/2024 10:00 AM AVIATION WARFARE SYSTEMS OPERATOR Office Visit [facility] Endocrinology [address] [place] [phone] Yosi Bustamante MD [address] [place] [address] 2L [place] [address] 07/26/2024 10:00 AM AVIATION WARFARE SYSTEMS OPERATOR Appointment [facility] [address] [place] [phone] Neri Delgado MD [address] [place] [address] 07/26/2024 10:00 AM AVIATION WARFARE SYSTEMS OPERATOR Office Visit [facility] - ENT [address] [place] [phone] Myra Farmer, EMERGENCY OPERATOR [address] [place] [address] 2L [place] [address] 07/26/2024 11:15 AM AVIATION WARFARE SYSTEMS OPERATOR Office Visit [facility] - [facility]NT [address] [place] [phone] Neri Delgado MD [address] [place] [address] 08/02/2024 2:20 PM AVIATION WARFARE SYSTEMS OPERATOR Appointment [facility] [address] [place] [address] 08/02/2024 3:00 PM AVIATION WARFARE SYSTEMS OPERATOR Office Visit [facility] - Hematology/Oncology [address] [place] [phone] Remi Beckett MD [address] [place] [phone] 08/18/2024 1:45 PM AVIATION WARFARE SYSTEMS OPERATOR Office Visit [facility] - ENT [address] [place] [phone] Neri Delgado MD [address] [place] [address] documented as of this encounter Visit Diagnoses Not on filedocumented in this encounter Care Teams Management Trainer Relationship Specialty Start Date End Date Taniya Grimes MD [address] [place] [address] 2L DIV OF [facility] [place] [address] PCP - General 07/01/20 05/10/22 Marylu Marie DO [address] [place] [address] 2L DIV OF [facility] [place] [address] Resident - PCP Student Resident 06/26/20 01/11/22 documented as of this encounter
--- OUTSIDE RECORDS SUMMARY | 2024-07-23 07:24 | XMS_ITS | Encounter Summary ---
Author Organization [facility] Address [address] [facility] [place] [address] Care Team Providers Care Dyeing Machine Tender Name Role Phone Marylu Marie DO Unavailable Taniya Grimes MD Primary Care Provider [phone] Reason for Visit * Reason Onset Date Comments Medication Issue 11/06/2020 Vitamin D Encounter Details Date Type Department Care Team (Late st Contact Info) Description 11/06/2020 Telephone [facility] Endocrinology, Diabetes and Metabolism [address] [place] [address], [facility] [place] [phone] Yosi Bustamante MD [address] [place] [address] [place] [address] Medication Issue (Vitamin D) Social History Tobacco Use Types Packs/Day Years [...] encounter Miscellaneous Notes * Telephone Encounter - Danette Yang - 11/06/2020 10:00 AM CDT Pt called in requesting to get prescription called into pharmacy rather than buying OTC because shestates its more expensive. Spoke to Marquita, with verbal order. Patient is advised. documented in this encounter Plan of Treatment Upcoming Encounters Date Type Department Care Team (Late st Contact Info) Description 07/25/2024 10:00 AM SILVER LAP MACHINE TENDER [facility] [address] [place] [phone] Yosi Bustamante MD [address] [place] [address] 2L [place] [address] 07/26/2024 10:00 AM SILVER LAP MACHINE TENDER Appointment [facility] [address] [place] [address] Neri Delgado MD [address] [place] [address] 07/26/2024 10:00 AM SILVER LAP MACHINE TENDER Office Visit [facility] - ENT [address] [place] [phone] Myra Farmer, CREEL SELECTOR [address] [place] [address] 2L [place] [phone] 07/26/2024 11:15 AM SILVER LAP MACHINE TENDER Office Visit [facility] [address] [place] [phone] Neri Delgado MD [address] [place] [address] 08/02/2024 2:20 PM SILVER LAP MACHINE TENDER Appointment [facility] [address] [place] [address] 08/02/2024 3:00 PM SILVER LAP MACHINE TENDER Office Visit [facility] - Hematology/Oncology [address] [place] [phone] Remi Beckett MD [address] [place] [phone] 08/18/2024 1:45 PM SILVER LAP MACHINE TENDER Office Visit [facility] - ENT [address] [place] [phone] Neri Delgado MD [address] [place] [address] documented as of this encounter Visit Diagnoses Not on filedocumented in this encounter Care Teams Dyeing Machine Tender Relationship Specialty Start Date End Date Taniya Grimes MD [address] [facility] 2L DIV OF [facility] [place] [phone] PCP - General 07/01/20 05/10/22 Marylu Marie DO [address] [facility] 2L DIV OF [facility] [place] [address] Resident - PCP Student Resident 06/26/20 01/11/22 documented as of this encounter
--- OUTSIDE RECORDS SUMMARY | 2024-07-23 07:24 | XMS_ITS | Encounter Summary ---
Author Organization [facility] Address [address] [facility] [place] [address] Care Team Providers Care Applied Marine Physics Professor Name Role Phone Marylu Marie DO Unavailable [phone] Taniya Grimes MD Primary Care Provider Reason for Visit * Reason Onset Date Comments Pain Hip 10/11/2020 Encounter Details Date Type Department Care Team (Late st Contact Info) Description 10/11/2020 Nurse Triage [facility] Internal Medicine [address] [place] [address], [place] [phone] Marylu Marie DO [address] [place] [address] OF [facility] [place] [address] Pain Hip Social History Tobacco Use Types [...] COVID-19? No / Unsure 09/11/2020 1:58 PM FOREIGN CLERK documented as of this encounter Functional Status [...] Telephone Encounter - Lexii Brown RN - 10/11/2020 3:26 PM CDT States still 'healing from cancer [...] relief'and states prefers oxycodone be ordered through [facility] in [place].Instructed to apply ice to hip intermittently as can tolerate anduse heat to area intermittently but warned not to fall asleep on heating pad. Please advise. documented in this encounter Plan of Treatment Upcoming Encounters Date Type Department Care Team (Late st Contact Info) Description 07/25/2024 10:00 AM FOREIGN CLERK Office Visit [facility] - Endocrinology [facility] [facility], [place] [phone] Yosi Bustamante MD [address] [place] [address] [place] [address] 07/26/2024 10:00 AM FOREIGN CLERK Appointment [facility] DIAG[facility]IC RAD [address] [place] [phone] Neri Delgado MD [address] [place] [address] 07/26/2024 10:00 AM FOREIGN CLERK Office Visit [facility] - ENT [address] [place] [phone] Myra Farmer, GINSENG FARMER [address] [place] [address] 2L [place] [phone] 07/26/2024 11:15 AM FOREIGN CLERK Office Visit [facility] - ENT [address] [place] [phone] Neri Delgado MD [address] [place] [address] 08/02/2024 2:20 PM FOREIGN CLERK Appointment [facility] [address] [place] [address] 08/02/2024 3:00 PM FOREIGN CLERK Office Visit [facility] - Hematology/Oncology [address] [place] [phone] Remi Beckett MD [address] [place] [phone] 08/18/2024 1:45 PM FOREIGN CLERK Office Visit [facility] E[facility] [address] [place] [phone] Neri Delgado MD [address] [place] [address] documented as of this encounter Visit Diagnoses Not on filedocumented in this encounter Care Teams Applied Marine Physics Professor Relationship Specialty Start Date End Date Taniya Grimes MD [address] [place] [address] 2L DIV [place] [phone] PCP - General 07/01/20 05/10/22 Marylu Marie DO [address] [place] [address] Resident - PCP Student Resident 06/26/20 01/11/22 documented as of this encounter
--- OUTSIDE RECORDS SUMMARY | 2024-07-23 07:24 | XMS_ITS | Encounter Summary ---
Author Organization [facility] Address [address] [facility] [place] [address] Care Team Providers Care Electrical Laboratory Technician Name Role Phone Marylu Marie DO Unavailable Taniya Grimes MD Primary Care Provider Reason for Visit * Reason Onset Date Comments COVID-19 IMMUNIZATION/INJECTION 09/25/2020 Encounter Details Date Type Department Care Team (Late st Contact Info) Description 09/25/2020 Telephone [facility] [address] [place] [address], [place] [address] Taniya Grimes MD [address] [place] [address] [place] [address] COVID-19 IMMUNIZATION/INJECTION Social History Tobacco Use Types Packs/Day Years [...] COVID-19? No / Unsure 09/11/2020 1:58 PM PROSTHETIC AIDES TEACHER documented as of this encounter Functional Status [...] Telephone Encounter - Zachary Hendricks RN - 09/25/2020 11:58 AM CDT Pt called for Covid-19 vaccine clinic resources. Did share the [facility] Hotline of [phone] and [facility] at [phone]. Denies having any further concerns at this time. documented in this encounter Plan of Treatment Upcoming Encounters Date Type Department Care Team (Late st Contact Info) Description 07/25/2024 10:00 AM PROSTHETIC AIDES TEACHER Office Visit [facility] Endocrinology [address] [place] [phone] Yois Bustamante MD [address] [place] [address] 2L [place] [address] 07/26/2024 10:00 AM PROSTHETIC AIDES TEACHER Appointment [facility] [address] [place] [phone] Neri Delgado MD [address] [place] [address] 07/26/2024 10:00 AM PROSTHETIC AIDES TEACHER Office Visit [facility] - ENT [address] [place] [phone] Myra Farmer, TALENT ACQUISITION RELATIONSHIP MANAGER [address] [place] [address] 2L [place] [phone] 07/26/2024 11:15 AM PROSTHETIC AIDES TEACHER Office Visit [facility] - ENT [address] [place] [phone] Neri Delgado MD [facility]5 [place] [address] 08/02/2024 2:20 PM PROSTHETIC AIDES TEACHER Appointment [facility] [address] [place] [address] 08/02/2024 3:00 PM PROSTHETIC AIDES TEACHER Office Visit [facility] - Hematology/Oncology [address] [place] [phone] Remi Beckett MD [address] [place] [phone] 08/18/2024 1:45 PM PROSTHETIC AIDES TEACHER Office Visit [facility] - ENT [address] [place] [phone] Neri Delgado MD [address] [place] [address] documented as of this encounter Visit Diagnoses Not on filedocumented in this encounter Care Teams Electrical Laboratory Technician Relationship Specialty Start Date End Date Taniya Grimes MD [address] [place] [address] 2L DIV OF [facility] [place] [address] PCP - General 07/01/20 05/10/22 Marylu Marie DO [address] [place] [address] 2L DIV OF [facility] [place] [address] Resident - PCP Student Resident 06/26/20 01/11/22 documented as of this encounter
--- OUTSIDE RECORDS SUMMARY | 2024-07-23 07:24 | XMS_ITS | Encounter Summary ---
Author Organization [facility] Address [address] [facility] [place] [address] Care Team Providers Care Forensic Locksmith Name Role Phone Marylu Marie DO Unavailable Taniya Grimes MD Primary Care Provider Reason for Visit * Reason Comments Lower Extremity Problem hip left Encounter Details Date Type Department Care Team (Late st Contact Info) Description 11/04/2020 2:00 PM CDT Office Visit [facility] [address] [facility] [place] [address] [facility] current use of 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 (Primary Dx); Pain management contract signed; Hip pain Social History Tobacco Use Types [...] Sign Reading Time Taken Comments Blood Pressure 136/79 11/04/2020 2:22 PM CDT Pulse 67 11/04/2020 2:22 PM CDT Temperature 36.2 ??C (97.1 ??F) 11/04/2020 2:22 PM CD T Respiratory Rate - - Oxygen Saturation 97% 11/04/2020 2:22 PM CDT Inhaled Oxygen Concentration - - Weight 70.3 kg (155 lb) 11/04/2020 2:22 PM CDT Height 157.5 cm (5' 2) 11/04/2020 2:22 PM CDT Body Mass Index 28.35 11/04/2020 2:22 PM CDT documented in this [...] this encounter Patient Instructions * Patient Instructions* Quyen Hines RN - 01/13/2021 11:41 AM CDT Just a quick message to remind you to obtain Care Everywhere authorizations at the time of the encounter. It appears that you roomed this patient and no auth was obtained. We appreciate everything you do to improve the patient and quality experience. documented in this encounter Progress Notes * Yaneth Rahman APRN-SARAH - 11/04/2020 2:46 PM CDT Brisa Hogan is a 60 year old White/ female here for left hip pain. Severe OA left hip Hip replacement on hold due to thyroid cancer Had tramadol a few weeks ago; no help On mobic 7.5--no help Cries, can't sleep Wants pain medication Had recent oxycontin--helped her pain; had recent Nash--helped PEG: A Three Item Scale Assessing Pain Intensity and Interference (From CDC.gov, 2016) PEG score = average 3 individual question scores (30% improvement from baseline is clinically meaningful) 1. What number best describes your pain on average in the past week? 0 (No pain) to 10 (Worst you can imagine) __10___ 2. What number best describes how, during the past week, pain has interfered with your enjoyment oflife? 0 (Not at all) to 10 (complete interference) ___10___ 3. What number best describes how, during the past week, pain has interfered with your general activity? 0 (Not at all) to 10 (complete interference) _10 Takes gabapentin for chronic back pain--no help Opioid risk tool completed--does have back pain and uses marijuana (states small amount) three times weekly Explained pain contract and pt signed UDS ordered--canot urinate today and needs to go home to take her 4 pm medications Past Medical History: Diagnosis Date ??? Anxiety [...] ??? 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 bqxalyc-elqhzspbr-jcaw 333-133-5 MG tablet Take 1 (one) tablet [...] fluticasone propionate (FLONASE) 50 MCG/ACT nasal spray Hardy 2 sprays into each nostril 16 g 0 ??? gabapentin (NEURONTIN) 300 MG capsule TAKE 1 CAPSULE BY MOUTH THREE TIMES A DAY 90 capsule 5 ??? ISOFTM-EEPDPELTX-OYC-C-HYAL PO Take 1 tablet by mouth 3 times daily ??? levothyroxine (SYNTHROID) 112 MCG tablet Take 1 (one) tablet by mouth daily before breakfast Reasons: Underactive Thyroid, Cancer of Thyroid 30 tablet 11 ??? meloxicam (MOBIC) 7.5 MG tablet TAKE 1 TABLET BY MOUTH EVERY DAY 60 tablet 2 ??? [place]-3 Fatty Acids (FISH OIL) 1000 MG capsule [...] No current facility-administered medications for this visit. BP 136/79 Pulse 67 Temp 97.1 ??F (36.2 ??C) Ht 5' 2 (1.575 m) Wt 155 lb (70.3 kg) SpO2 97% BMI 28.35 kg/m2 GEN - well developed, well nourished, alert, NAD, in W/C EYES - EOMI, CELESTINA, anicteric CVS - S1 S2 +, RRR, no MRG's appreciated RS - clear bilaterally, no wheezes, crackles or rubs POST CLOSING SPECIALIST - no focal neurological deficit MSK - moves all extremities; wearing left hip brace LE - no edema SKIN - no rashes or lesions; no petechiae, ecchymosis, or jaundice to visible skin PSYCH - calm, congruent affect CODY Salcido documented in this encounter Plan of Treatment Upcoming Encounters Date Type Department Care Team (Late st Contact Info) Description 07/25/2024 10:00 AM ELECTRIC REFRIGERATOR SERVICER Office Visit [facility] - Endocrinology [address] [place] [phone] Yosi Bustamante MD [address] [place] [address] 2L [place] [address] 07/26/2024 10:00 AM ELECTRIC REFRIGERATOR SERVICER Appointment [facility] RAD [address] [place] [phone] Neri Delgaod MD [address] [place] [address] 07/26/2024 10:00 AM ELECTRIC REFRIGERATOR SERVICER Office Visit [facility] - [facility] [address] [place] [phone] Myra Farmer, EDGE FINISHER [address] [place] [address] 2L [place] [phone] 07/26/2024 11:15 AM ELECTRIC REFRIGERATOR SERVICER Office Visit [facility] - ENT [address] [place] [phone] Neri Delgado MD [address] [place] [address] 08/02/2024 2:20 PM ELECTRIC REFRIGERATOR SERVICER Appointment [facility] [address] [place] [address] 08/02/2024 3:00 PM ELECTRIC REFRIGERATOR SERVICER Office Visit [facility] - Hematology/Oncology [address] [place] [phone] Remi Beckett MD [address] [place] [phone] 08/18/2024 1:45 PM ELECTRIC REFRIGERATOR SERVICER Office Visit [facility] [address] [place] [phone] Neri Delgado MD [address] [place] [address] documented as of this encounter Results * URINE DRUG SCREEN COMPREHENSIVE (11/11/2020 3:56 PM CDT) [facility] Amphetamines Screen Urine Negative Negative: < 1000 ng/mL 11/11/2020 4:50 PM CDT [facility] Barbiturates Screen Urine Negative Negative: < 200 ng/mL 11/11/2020 4:50 PM CDT [facility] Benzodiazepine Screen Urine Negative Negative: < 200 ng/mL 11/11/2020 4:50 PM CDT [facility] Opiates Urine Negative Negative: < 300 ng/mL 11/11/2020 4:50 PM CDT [facility] Cocaine Metabolites Urine Negative Negative: < 300 ng/mL 11/11/2020 4:50 PM CDT [facility] Phencyclidine Screen Urine Negative Negative: < 25 ng/ml 11/11/2020 4:50 PM CDT [facility] Cannabinoids Screen Urine Negative Negative: <50 ng/mL 11/11/2020 4:50 PM CDT [facility] Methadone Screen Urine Negative Negative: < 300 ng/mL 11/11/2020 4:50 PM CDT [facility] Fentanyl Screen Urine Negative Negative: <1.0 ng/mL 11/11/2020 4:50 PM CDT [facility] Urine URINE / Unknown Collection / Unknown 11/11/2020 3:56 PM CDT 11/11/2020 4:15 PM CDT Narrative [facility] - 11/11/2020 4:50 PM CDT The Urine Toxicology Screening Panel does not screen for Propoxyphene, Meprobamate, Carisoprodol, Trazodone, vcgn-tjm-qfamgnl medications and/or volatiles (Acetone, Isopropanol, Methanol or [...] used for clinical purposes only. ? Yaneth Rahman AWNING FRAME MAKER-PASTORAL MINISTRIES PROFESSOR LAB - URINE CH EMISTRY ORDERABLES Performing Organization Address [facility]/State/[facility] de Phone Number [facility] [address] [place] [phone], [facility] [phone] documented in this encounter Visit Diagnoses Diagnosis [facility] current use of 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- Primary Encounter for long-term (current) use of other medications Pain management contract signed Reserved for inherently not codable concepts WITHOUT codable children Hip pain Pain in joint, pelvic region and thigh documented in this encounter Care Teams Forensic Locksmith Relationship Specialty Start Date End Date Taniya Grimes MD [address] 2L DIV OF [facility] [place] [address] PCP - General 07/01/20 05/10/22 Marylu Marie DO [address] 2L DIV OF [facility] [address] Resident - PCP Student Resident 06/26/20 01/11/22 documented as of this encounter
--- OUTSIDE RECORDS SUMMARY | 2024-07-23 07:24 | XMS_ITS | Encounter Summary ---
Author Organization [facility] Health Address [address] [place] [address] Care Team Providers Care Chemistry Associate Name Role Phone Marylu Marie DO Unavailable [phone] Taniya Grimes MD Primary Care Provider Encounter Details Date Type Department Care Team (Latest Contact Info) Description 09/11/2020 Travel Social History Tobacco Use Types Packs/Day [...] COVID-19? No / Unsure 09/11/2020 1:58 PM FIELD OPERATIONS TECHNICIAN documented as of this encounter Functional [...] (Late Contact Info) Description 07/25/2024 10:00 AM FIELD OPERATIONS TECHNICIAN Office Visit [facility] - Endocrinology [address] [place] [phone] Yosi Bustamante MD [address] [place] [address] 2L [place] [address] 07/26/2024 10:00 AM FIELD OPERATIONS TECHNICIAN Appointment [facility] [address] [place] [phone] Neri Delgado MD [address] [place] [address] 07/26/2024 10:00 AM FIELD OPERATIONS TECHNICIAN Office Visit [facility] - ENT [address] [place] [phone] Myra Farmer, HEALTH EDUCATION ASSISTANT [address] [place] [address] 2L [place] [phone] 07/26/2024 11:15 AM FIELD OPERATIONS TECHNICIAN Office Visit [facility] - ENT [address] [place] [phone] Neri Delgado MD [address] [place] [address] 08/02/2024 2:20 PM FIELD OPERATIONS TECHNICIAN Appointment [facility] [address] [place] [address] 08/02/2024 3:00 PM FIELD OPERATIONS TECHNICIAN Office Visit [facility] - Hematology/Oncology [address] [place] [phone] Remi Beckett MD [address] [place] [phone] 08/18/2024 1:45 PM FIELD OPERATIONS TECHNICIAN Office Visit [facility]NT [address] [place] [address] Neri Delgado MD [address] [place] [address] documented as of this encounter Visit Diagnoses Not on filedocumented in this encounter Care Teams Chemistry Associate Relationship Specialty Start Date End Date Taniya Grimes MD [address] [place] [address] 2L DIV OF [facility] [place] [address] PCP - General 07/01/20 05/10/22 Marylu Marie DO [address] [place] [address] 2[place] [address] Resident - PCP Student Resident 06/26/20 01/11/22 documented as of this encounter
--- OUTSIDE RECORDS SUMMARY | 2024-07-23 07:24 | XMS_ITS | Encounter Summary ---
Author Organization [facility] Health Address [address] [facility] [place] [address] Care Team Providers Care Clam Dredger Name Role Phone Marylu Marie DO Unavailable Taniya Grimes MD Primary Care Provider Reason for Visit * Reason Onset Date Comments Med Question 11/06/2020 Encounter Details Date Type Department Care Team (Late st Contact Info) Description 11/06/2020 Telephone [facility] Medicine [address] [place] [address], [facility] [place] [address] Taniya Grimes MD [address] [place] [address] [place] [address] Med Question Social History Tobacco [...] Telephone Encounter - Esther Branch RN - 11/08/2020 8:05 AM CDT Called the pt and left a voicemail; relayed message from Dr. Grimes: The plain MUCINEX is fine * Telephone Encounter - Taniya Grimes MD - 11/07/2020 5:24 PM CDT The plain MUCINEX is fine * Telephone Encounter - Zachary Hendricks RN - 11/06/2020 11:31 AM CDT Pt called asking if the provider was okay with her taking Mucinex d/t having phelgm stuck in the bottom of her throat. Stated she just had thyroid surgery and was hesitant to take anything w/o the providers approval. Please advise on approval and what type of OTC Mucinex she can take. documented in this encounter Plan of Treatment Upcoming Encounters Date Type Department Care Team (Late st Contact Info) Description 07/25/2024 10:00 AM DIRECTOR OF CORPORATE COMMUNICATIONS Office Visit [facility] - Endocrinology [address] [place] [phone] Yosi Bustamante MD [address] [place] [address] [place] [address] 07/26/2024 10:00 AM DIRECTOR OF CORPORATE COMMUNICATIONS Appointment [facility] [address] [place] [phone] Neri Delgado MD [address] [place] [address] 07/26/2024 10:00 AM DIRECTOR OF CORPORATE COMMUNICATIONS Office Visit [facility] - ENT [address] [place] [phone] Myra Farmer, COLLEGE AND CAREER COUNSELOR [address] [place] [address] 2L [place] [address] 07/26/2024 11:15 AM DIRECTOR OF CORPORATE COMMUNICATIONS Office Visit [facility] - ENT [address] [place] [phone] Neri Delgado MD [address] [place] [address] 08/02/2024 2:20 PM DIRECTOR OF CORPORATE COMMUNICATIONS Appointment [facility] [address] [place] [address] 08/02/2024 3:00 PM DIRECTOR OF CORPORATE COMMUNICATIONS Office Visit [facility] - Hematology/Oncology [address] [place] [phone] Remi Beckett MD [address] [place] [phone] 08/18/2024 1:45 PM DIRECTOR OF CORPORATE COMMUNICATIONS Office Visit [facility]NT [address] [place] [phone] Neri Delgado MD [address] [place] [address] documented as of this encounter Visit Diagnoses Not on filedocumented in this encounter Care Teams Clam Dredger Relationship Specialty Start Date End Date Taniya Grimes MD [address] [place] [address] 2L DIV [place] [address] PCP - General 07/01/20 05/10/22 Marylu Marie DO [address] OF [facility] [place] [address] Resident - PCP Student Resident 06/26/20 01/11/22 documented as of this encounter
--- OUTSIDE RECORDS SUMMARY | 2024-07-23 07:24 | XMS_ITS | Encounter Summary ---
Author Organization [facility] Health Address [address] [facility] [place] [address] Care Team Providers Care Director Stars Name Role Phone Marylu Marie DO Unavailable Taniya Grimes MD Primary Care Provider [phone] Reason for Visit * Reason Onset Date Comments Pain Hip 10/21/2020 Encounter Details Date Type Department Care Team (Late st Contact Info) Description 10/21/2020 Telephone [facility] [address] [place] [address], [place] [address] Taniya Grimes MD [address] [place] [address] OF [facility] [place] [address] Pain Hip Social History Tobacco [...] Telephone Encounter - Zachary Hendricks RN - 11/01/2020 8:18 AM CDT Images from the original note were not included. Outreach #1 Successful. Scheduled an ACU apt for 11.04.20. Provider: Dillon Nicole MD You 15 hours ago (4:33 PM) BB I think it would be best if she schedules an appointment with the acute care clinic if she is in that much pain. ??I am covering Dr. Hawkins inbox currently so feel free to cc me if there are any issues getting her scheduled in acute care. Thank you Dillon Ortiz Message text * Telephone Encounter - Zachary Hendricks RN - 10/29/2020 10:07 AM CDT Pt called, stated it's been two week and is yet to hear from her provider regarding recommendationsfor her hip. Please advise. * Telephone Encounter - Esther Branch RN - 10/21/2020 9:18 AM CDT Pt calling to speak to Dr. Marie or Dr. Grimes. Pt states that the Tramadol did not help her pain at all. Pt very tearful throughout this call stating she cannot comfortable and the left hip painis unbearable. States she has tried everything at home in addition to the Tramadol without success.States that she cannot see ortho- Dr. Brooks until 11/19. States that Dr. Bustamante appt went welland he wants to see the pt back in 3 months. CB: [phone] documented in this encounter Plan of Treatment Upcoming Encounters Date Type Department Care Team (Late st Contact Info) Description 07/25/2024 10:00 AM BUILDING CONSTRUCTION INSPECTOR Office Visit [facility] - Endocrinology [address] [place] [phone] Yosi Bustamante MD [address] [place] [address] 2L [place] [address] 07/26/2024 10:00 AM BUILDING CONSTRUCTION INSPECTOR Appointment [facility] [address] [place] [address] Neri Delgado MD [address] [place] [address] 07/26/2024 10:00 AM BUILDING CONSTRUCTION INSPECTOR Office Visit [facility] - ENT [address] [place] [phone] Myra Farmer, OPERATIONS SUPERVISOR [address] [place] [address] 2L [place] [address] 07/26/2024 11:15 AM BUILDING CONSTRUCTION INSPECTOR Office Visit [facility] ENT [address] [place] [phone] Neri Delgado MD [address] [place] [address] 08/02/2024 2:20 PM BUILDING CONSTRUCTION INSPECTOR Appointment [facility] [address] [place] [address] 08/02/2024 3:00 PM BUILDING CONSTRUCTION INSPECTOR Office Visit [facility] - Hematology/Oncology [address] [place] [phone] Remi Beckett MD [address] [place] [phone] 08/18/2024 1:45 PM BUILDING CONSTRUCTION INSPECTOR Office Visit [facility] [address] [place] [address] Neri Delgado MD [address] [place] [address] documented as of this encounter Visit Diagnoses Not on filedocumented in this encounter Care Teams Director Stars Relationship Specialty Start Date End Date Taniya Grimes MD [address] [place] [address] 2L DIV OF [facility] [place] [address] PCP - General 07/01/20 05/10/22 Marylu Marie DO [address] [place] [address] 2L DIV OF [facility] [place] [address] Resident - PCP Student Resident 06/26/20 01/11/22 documented as of this encounter
--- OUTSIDE RECORDS SUMMARY | 2024-07-23 07:25 | XMS_ITS | Encounter Summary ---
Author Organization [facility] Health Address [address] [facility] [place] [address] Care Team Providers Care Jumpbasting Lining Baster Name Role Phone Marylu Marie DO Unavailable Taniya Grimes MD Primary Care Provider Reason for Visit * Reason Onset Date Comments MEDICATION REFILL 09/02/2020 Encounter Details Date Type Department Care Team (Late st Contact Info) Description 09/02/2020 Refill [facility] [address] [place] [address], [place] [address] Marylu Marie DO [address] [place] [address] [place] [address] MEDICATION REFILL Social History Tobacco Use Types [...] have Coronavirus / COVID-19? No / Unsure 08/17/2020 11:32 AM REFERRAL SPECIALIST documented as of this encounter Functional [...] Telephone Encounter - Jessica Kenyon RN - 09/02/2020 2:32 PM REFERRAL SPECIALIST Refill Request Brisa Hogan ELE: 08/08/19 NOV scheduled: Visit date not found LRF: 03/08/20 Qty Disp: 30 # of refills: 5 Allergies: No Known Allergies Pended Medication Order: Requested Prescriptions Pending Prescriptions Disp Refills ??? cetirizine (ZYRTEC) 10 MG tablet 30 tablet 5 Sig: Take 1 (one) tablet by mouth once daily RRAL SPECIALIST documented in this encounter Plan of Treatment Upcoming Encounters Date Type Department Care Team (Late st Contact Info) Description 07/25/2024 10:00 AM REFERRAL SPECIALIST Office Visit [facility] - Endocrinology [address] [place] [phone] Yosi Bustamante MD [address] [place] [address] 2L Div [place] [address] 07/26/2024 10:00 AM REFERRAL SPECIALIST Appointment [facility] [address] [place] [phone] Neri Delgado MD [address] [place] [address] 07/26/2024 10:00 AM REFERRAL SPECIALIST Office Visit [facility]NT [address] [place] [phone] Myra Farmer, RETAIL AREA MANAGER [address] [place] [address] 2L [place] [address] 07/26/2024 11:15 AM REFERRAL SPECIALIST Office Visit [facility] [address] [place] [phone] Neri Delgado MD [address] [place] [address] 08/02/2024 2:20 PM REFERRAL SPECIALIST Appointment [facility] [address] [place] [address] 08/02/2024 3:00 PM REFERRAL SPECIALIST Office Visit [facility] - Hematology/Oncology [address] [place] [phone] Remi Beckett MD [address] [place] [phone] 08/18/2024 1:45 PM REFERRAL SPECIALIST Office Visit [facility] [address] [place] [phone] Neri Delgado MD [address] [place] [address] documented as of this encounter Visit Diagnoses Diagnosis Allergic rhinitis, unspecified seasonality, unspecified trigger documented in this encounter Care Teams Jumpbasting Lining Baster Relationship Specialty Start Date End Date Taniya Grimes MD [address] [place] [address] 2L DIV OF [facility] [place] [address] PCP - General 07/01/20 05/10/22 Marylu Marie DO [address] [place] [address] 2L DIV OF [facility] [place] [address] Resident - PCP Student Resident 06/26/20 01/11/22 documented as of this encounter
--- OUTSIDE RECORDS SUMMARY | 2024-07-23 07:25 | XMS_ITS | Encounter Summary ---
Author Organization [facility] Health Address [address] [place] [address] Care Team Providers Care Supervisor Home Economics Name Role Phone Marylu Marie DO Unavailable [phone] Taniya Grimes MD Primary Care Provider Reason for Visit * Auth/Cert Specialty Diagnoses / Procedures Referred By Contricardo t Referred To Contact Diagnoses 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 TRACHEAL MASS, HOARSENESS, RIGHT VOCAL CORD PARALYSIS, LYMPHADENECTOMY HEAD AND NECK Procedures LARYNGOSCOPY WITH MICROSCOPE DISSECTION NECK EXCISION/RESECTION/REPAIR TRACHEA Referral ID Status Reason Start Date Expiration Date Visits Re quested Visits Authorized [id number] 1 1 Encounter Details Date Type Department Care Team (Latest Contact Info) Description 08/19/2020 5:05 AM VP PURCHASING - 08/29/2020 11:30 AM [facility] Hospital Encounter [facility] 6[address] ACUTE [address] [place] [address] Dionte Comer MD [address] [place] [address] Otolaryngology Discharge Disposition: Home or Self Care Social [...] COVID-19? No / Unsure 08/17/2020 11:32 AM VP PURCHASING documented as of this encounter Last Filed Vital Signs Vital Sign Reading Time Taken Comments Blood Pressure 103/65 08/29/2020 8:55 AM VP PURCHASING Pulse 85 08/29/2020 8:55 AM VP PURCHASING Temperature 36.5 ??C (97.7 ??F) 08/29/2020 8:55 AM CS T Respiratory Rate 18 08/29/2020 1:22 AM VP PURCHASING Oxygen Saturation 95% 08/29/2020 8:55 AM VP PURCHASING Inhaled Oxygen Concentration - - Weight 69.9 kg (154 lb) 08/19/2020 5:45 AM VP PURCHASING Height 154.9 cm (5' 1) 08/19/2020 5:45 AM VP PURCHASING Body Mass Index 29.1 08/19/2020 5:45 AM VP PURCHASING documented in this encounter Functional Status Functional [...] No 08/20/2020 documented as of this encounter Discharge Summaries * Fabian Flores MD - 08/29/2020 7:45 AM CST Physician Discharge Summary Elizabeth Caicedo 60 year old [id number] Admit Date: 08/19/2020 Discharge Date and time: 08/29/20 7:45 AM Admitting Physician: Dr. Comer Discharge Physician: Dr. Comer Admitting diagnosis: Thyroid mass Discharge diagnosis: same Admission condition: stable Discharge condition: stable Indication for admission: planned surgery Hospital course: Elizabeth Caicedo is a 60 year old female who presented for planned surgery for advanced thyroid mas. On 08/19/20 she underwent DIRECT LARYNGOSCOPY WITH BIOPSY, TOTAL THYROIDECTOMY WITH CENTRAL NECK DISSECTION, RIGHT AND LEFT NECK DISSECTIONS, TRACHEAL TUMOR RESECTION AND REANASTOMOSIS. Postoperatively, she was admitted to the ICU for close monitoring. Had increased neck and facialcrepitus/swelling after a bout of coughing and was put on narcotic pain medicines to decrease the amount of coughing, with gradual resolution of edema. Endocrinology was consulted for thyroid and calcium management in the setting of her surgical resection and persistent hypocalcemia. She was transferred out of the ICU to the floor on 08/24/20. Later that day she developed increased fluid output from the left neck drain suspicious for chyle leak, started on octreotide and a low fat diet. The chyle leak resolved over the next few days and she was slowly advanced from a clear liquid diet to regular diet without issues. Her drains were removed on 08/28/20 and on 08/29/20 she was discharged in stable condition with ENT follow up planned in 2 weeks. Significant Diagnostic Studies: none Discharge exam: General: no acute distress, resting comfortably Resp: unlabored breathing CV: warm and well perfused HEENT: No significant crepitus at neck or supraclavicular areas, no notable facial edema. Bilateralneck incisions intact, clean and dry. All AGUSTÍN and sergo drains removed. Neck flexed. Disposition: Home Follow up with Dr. Comer in 2 weeks on Wednesday09/11/20 at 2:15 PM. Obtain blood work (renal function panel) at that time. Call our clinic at [phone] to confirm or to reschedule that appointment. Follow up with Endocrinology (Dr. Kendall Bustamante) in 6 weeks. Obtain blood work (TSH, free T4 labs) at that time. ?? Wound care: Apply a light layer of Vaseline to incisions twice daily. It is OK to shower and let soapy water run over the incision sites. Do not soak the incision under water for a prolonged period of time. ?? Pain: You may take the pain medication as prescribed to you - if you take narcotic pain medicine, also take stool softeners as prescribed to prevent the side effect of constipation. Alternatively, you may take Tylenol and/or ibuprofen. Do not exceed 3 grams of acetaminophen (a component of Tylenol,Gordon, Percocet) over a 24 hour period. ?? Diet: You may resume your normal diet. ?? Activity: You should avoid strenuous activity for the first 2 weeks after surgery. You may then gradually return to your normal activity. ?? Special Instructions: Keep neck flexed at all times for 2 weeks from surgery (until 09/02/20), after which you may then keep your head neutral. However, you should never extend the neck until you see Dr. Comer in clinic. Alert our office and/or call the ENT resident client relationship executive after hours if you develop fevers, chills, pus or persistent drainage from the neck, or redness/warmth/increased pain at the neck, or other signs of infection. Take calcium and Vitamin D supplements as prescribed Take levothyroxine as prescribed. This thyroid medication must be 4 hours apart from any Calcium pill ?? If you start experiencing coughing, spitting, or vomiting bright red blood that does not seem to bestopping after 3-5 minutes, shortness of breath, chest pain, persistent fevers > 102 F, go to the nearest Emergency Room and call the hospital private branch exchange operator at [phone] dial [phone] and ask for the ENT resident client relationship executive. Request an appointment with Speech Therapy? Yes Home Health Care Nursing Visits? No Home Physical Therapy? No Home Medications/Prescriptions Provided: yes Current Outpatient Medications Medication Sig Dispense Refill ??? calcitriol (ROCALTROL) 0.5 MCG capsule Take 1 (one) capsule by mouth 2 times daily 30 capsule 1 ??? calcium-vitamin D (OS-YANNICK 500 + D) 500-200 mg-unit tablet Take 2 (two) tablets by mouth 3 timesdaily with meals 120 tablet 2 ??? [START ON 08/30/2020] levothyroxine (SYNTHROID) 112 MCG tablet Take 1 (one) tablet by mouth oncedaily 30 tablet 1 ??? oxyCODONE, immediate release, (ROXICODONE) 5 MG tablet Take 1 (one) tablet by mouth every 4 hours as needed for Pain 48 tablet 0 ??? senna (SENOKOT) 8.6 MG tablet Take 1 (one) tablet by mouth once daily as needed for Constipation 45 tablet 0 (Or please provide patient with copy of MAR, list of medications) Other Instructions If you have any of these symptoms: ??? Fever more than 102? Persistent pain, nausea, or vomiting ??? Persistent bleeding ??? Shortness of breath ??? Significant redness or drainage from your incision ??? Any other questions or concerns During business hours call: [phone] After 5 pm or on weekends call: and ask for the ENT resident client relationship executive. Fabian Flores MD PURCHASING documented in this encounter Discharge Instructions * Discharge Instructions* Fabian Flores MD - 08/29/2020 7:43 AM VP PURCHASING Follow up with Dr. Comer in 2 weeks on Wednesday09/11/20 at 2:15 PM. Obtain blood work (renal function panel) at that time. Call our clinic at [phone] to confirm or to reschedule that appointment. Follow up with Endocrinology (Dr. Kendall Bustamante) in 6 weeks. Obtain blood work (TSH, free T4 labs) at that time. Wound care: Apply a light layer of Vaseline to incisions twice daily. It is OK to shower and let soapy water run over the incision sites. Do not soak the incision under water for a prolonged period of time. Pain: You may take the pain medication as prescribed to you - if you take narcotic pain medicine, also take stool softeners as prescribed to prevent the side effect of constipation. Alternatively, you may take Tylenol and/or ibuprofen. Do not exceed 3 grams of acetaminophen (a component of Tylenol,Gordon, Percocet) over a 24 hour period. Diet: You may resume your normal diet. Activity: You should avoid strenuous activity for the first 2 weeks after surgery. You may then gradually return to your normal activity. Special Instructions: Keep neck flexed at all times for 2 weeks from surgery (until 09/02/20), after which you may then keep your head neutral. However, you should never extend the neck until you see Dr. Comer in clinic. Alert our office and/or call the ENT resident client relationship executive after hours if you develop fevers, chills, pus or persistent drainage from the neck, or redness/warmth/increased pain at the neck, or other signs of infection. Take calcium and Vitamin D supplements as prescribed Take levothyroxine as prescribed. This thyroid medication must be 4 hours apart from any Calcium pill If you start experiencing coughing, spitting, or vomiting bright red blood that does not seem to bestopping after 3-5 minutes, shortness of breath, chest pain, persistent fevers > 102 F, go to the nearest Emergency Room and call the hospital private branch exchange operator at [phone] dial [phone] and ask for the ENT resident client relationship executive. PURCHASING documented in this encounter Medications at Time [...] by mouth as needed 01/13/2021 albuterol HFA (PROVENTIL;VENTOLIN;GA OAIR) 108 (90 Base) MCG/ACT inhaler Inhale 2 puffs by mouth every 4 hours as needed 07/05/2020 12/09/2020 atorvastatin (LIPITOR) 40 MG tabletIndications:Hype rlipidemia, unspecified hyperlipidemia type Take 1 tablet by mouth at bedtime 30 tablet 11 09/06/2019 09/13/2020 B Complex Vitamins (VITAMIN B COMPLEX) tablet Take by mouth DAILY. 11/19/2016 021 calcitriol (ROCALTROL) 0.5 MCG capsule Take 1 (one) capsule by mouth 2 times daily 30 capsule 1 08/29/2020 10/03/2020 rzmqqrs-frcvzyyhb-ubne 333-133-5 MG tablet Take 1 tablet by mouth 3 times daily 10/14/2020 calcium-vitamin D (OS-YANNICK 500 + D) 500-200 mg-unit tablet Take 2 (two) tablets by mouth 3 times daily with meals 120 tablet 2 08/29/2020 10/14/2020 cetirizine (ZYRTEC) 10 MG tabletIndications:Barron rgic rhinitis, unspecified seasonality, unspecified trigger TAKE 1 TABLET BY MOUTH EVERY DAY 30 tablet 5 03/08/2020 09/02/2020 clobetasol (TEMOVATE) 0.05 % ointment Apply to affected area 2 times daily 60 g 12/26/2019 01/13/2021 clonazePAM (KLONOPIN) 0.5 MG tablet Take 0.5 mg by mouth 2 times daily 03/29/2019 05/22/2021 fluticasone propionate (FLONASE) 50 MCG/ACT nasal spray [place] 2 sprays into each nostril 16 g 09/06/2019 04/11/2021 gabapentin (NEURONTIN) 300 MG capsuleIndications:Nicole favio osteoarthritis of left hip TAKE 1 CAPSULE BY MOUTH THREE TIMES A DAY 90 capsule 5 03/08/2020 09/06/2020 ZAINUJ-NWQJPQLSP-MUP-C -HYAL PO Take 1 tablet by mouth 3 times daily 06/13/2023 levothyroxine (SYNTHROID) 112 MCG tablet Take 1 (one) tablet by mouth once daily 30 tablet 1 08/30/2020 10/14/2020 meloxicam (MOBIC) 7.5 MG tablet TAKE 1 TABLET BY MOUTH EVERY DAY 60 tablet 2 07/16/2020 01/13/2021 Durham-3 Fatty Acids (FISH OIL) 1000 MG capsule [...] 11/19/2016 01/13/2021 documented as of this encounter Progress Notes * Charity Kwan, sea kayaking guide - 08/29/2020 9:24 AM CST MEDICATION TO BEDSIDE DELIVERY: COMPLETE Medication to Bedside delivery was completed for Elizabeth Caicedo. ??? A total of 5 prescriptions were delivered to the patient for discharge. ??? Medications were given to NURSE (NADER) ??? This delivery included a controlled substance: YES, given to NURSE NADER ??? This delivery included medication that should be stored in the fridge: NO Thank you for allowing the outpatient pharmacy to participate in the care of Elizabeth Caicedo. If you have any questions, please contact the outpatient pharmacy at [phone]. Charity Kwan [facility] at [place] [address] [facility], First Floor [place], [place] [address] Hours of Operation Wednesday - Wednesday: 8:00am to 6:00pm Wednesday: 9:00am to 1:00pm Epic: [facility] *Ensure the patient and clinic's nearby ZIP codes box is unchecked* PURCHASING * Daiana Garcia RN - 08/29/2020 3:04 AM CST Problem: Fall Risk Goal: Fall risk and fall related injury risk are minimized (interventions related to the fall risk can be found in the flowsheet documentation) Outcome: Progressing Problem: Pain/Discomfort Goal: Patient exhibits reduced pain/discomfort as evidenced by pain scores Outcome: Progressing Problem: Thrombocytopenia/Bleeding Precautions Goal: Excessive bleeding will be minimized Outcome: Progressing PURCHASING * Ros Gonzalez COTA - 08/28/2020 2:29 PM CST [facility] Occupational Therapy Progress Note Patient: Elizabeth Caicedo Med Record Number: [id number] Date of : 1960 Age: [age] year old Face Mask: Therapist wore procedural mask and eye protection during session Tech: No ?? Discharge Recommendation: Patient should be able to return home when medically cleared by physicianteam. Therapy will continue to treat patient while in hospital. See current amount of assist neededbelow. Discharging pt at this time from OT, has met all goals, or at bseline. Conferenced with OT, agreeable to DC. Precautions: Subjective: I have all kinds of support from my , daughter, sisters, neighbors, people always want to help. At start of therapy session, patient found on edge of bed, with no alarm and family in room. Pain: Patient has 0 out of 10 pain Activities of Daily Living Feeding: NT Grooming/Bathing: not tested Upper Extremity Dressing: Independent doffing/donning gown, pt is able to tie/untie, aware of drains, pinning/unpinning, good safety. Lower Extremity Dressing: Independent doffing socks, Ind donning R sock, Min A with left sock due to L hip, Ind with donning mesh underwear and pants. Toileting/Transfers: not tested Mobility: Assist device: Straight Cane Rolling: not tested Supine to/from Sit:not tested Sit to/from Stand: Stand By Assist Bed to/from Chair: Stand By Assist Functional Mobility: SBA with cane around room Balance: Static Sitting: good Dynamic Sitting: good minus Static Standing: good Dynamic Standing: fair plus Vitals: Rest BP: HR: SpO2 SpO2 Room Air L 02 Ex/Gait/Activity Without 02 BP: HR: SpO2 Room Air Ex/Gait/Activity With 02 BP: HR: SpO2 L 02 Post Activity BP: HR: SpO2 SpO2 L 02 Room Air Observations: NAD Activity tolerance: good Cognitive/Perceptual: A&O x's 4. Pt is alert, cooperative and appropriate for therapy. Pt is pleasant, engages in conversation, and follows all simple directives, can be impulsive, baseline. Fair(+) safety awareness, insight into deficit, good attention to task. Treatment/Therapeutic Exercise: Treatment session this date focused on ADL training Functional transfer training Safety awareness Patient/Family Teaching: Mobility and Self care, Home safety, daugther in room, spouse at home and very supportive. Can get appropriate DME as needed. ?? Equipment Issued: none ?? Update Treatment Plan/Goals : DCing from OT standpoint. All goals met at baseline, will have familysupport. ?? Short Term Goals: Patient will perform grooming?Independently Patient will perform supine to sit?Independently Patient will perform sit to stand?Independently Patient will perform bed to chair?Independently ?? Hoop Bending Machine Operator Goal: Patient to be independent/baseline with functional mobility and self care and be able to safely discharge to prior level of care ?? If patient is discharged from the facility, this note serves as a discharge note if further occupational therapy visits did not occur. Following therapy session, patient left sitting EOB with good safety, daughter in room, call light close. PURCHASING * Munira Bates DO - 08/28/2020 12:38 PM CST Endocrinology Plan of Care note: Hypocalcemia post thyroidectomy if plans for home today then would discharged on the current oral regimen that patient is currentlyon here Continue Oscal 500-200 2 tabs TID Calcitriol 0.50??mcg BID Continue Levothyroxine 112 mcg and thyroid medication must be 4 hours apart from any Calcium pill - Renal function panel outpatient in 1 week with ENT follow up - TSH and free T4 in 6 weeks - pathology pending still upon discharge We will make follow up arrangements - follow up with Endocrinology in 6 weeks ?? D/w my attending Dr. Dianna Bates DO Endocrinology Fellow PURCHASING * Vince Willingham MD - 08/28/2020 12:06 PM CST Otolaryngology Progress Note 08/28/20 SUBJECTIVE: AF, VSS. No acute events overnight. Decreased tenderness around the neck. Denies tingling/numbness around lips or extremities. VITALS: Temp (30hrs) Max:98.3 ??F (36.8 ??C) Vitals: 08/27/20 1557 08/28/20 0009 08/28/20 0901 08/28/20 1156 BP: 111/64 128/77 125/89 144/83 Pulse: 86 66 86 71 Resp: 18 20 Temp: 98.3 ??F (36.8 ??C) 97.3 ??F (36.3 ??C) SpO2: 92% 98% 96% 93% Weight: Height: Intake/Output Summary (Last 24 hours) at 08/28/2020 1207 Last data filed at 08/28/2020 0851 Gross per 24 hour Intake 270 ml Output 914.5 ml Net -644.5 ml MEDICATIONS FOR CURRENT ENCOUNTER: SCHEDULED MEDICATIONS: ??? 0.9% NaCl injection 3 mL, Intracatheter, q8h ??? acetaminophen (TYLENOL) tablet 500 mg, Oral, q6h ??? atorvastatin (LIPITOR) tablet 40 mg, Oral, AT BEDTIME ??? calcitriol (ROCALTROL) capsule 0.5 mcg, Oral, BID ??? calcium-vitamin D (OS-YANNICK 500 + D) 500-200 mg-unit tablet 2 tablet, Oral, TID WC ??? clonazePAM (KlonoPIN) tablet 0.5 mg, Oral, BID ??? heparin injection 5,000 Units, Subcutaneous, q8h ??? levothyroxine (SYNTHROID) tablet 112 mcg, Oral, QDAY AT 0600 ??? melatonin tablet 3 mg, Oral, QPM ??? octreotide (SandoSTATIN) injection 100 mcg, Subcutaneous, TID ??? PARoxetine (PAXIL) tablet 40 mg, Oral, QDAY ??? polyethylene glycol 3350 (MIRALAX) packet 17 g, Oral, QDAY ??? senna (SENOKOT) tablet 8.6 mg, Oral, QDAY ??? traZODone (DESYREL) tablet 50 mg, Oral, AT BEDTIME ? [START ON 08/29/2020] pantoprazole EC (PROTONIX) tablet 40 mg, Oral, QDAY ?? CONTINUOUS MEDICATIONS: PRN MEDICATIONS: ??? 0.9% NaCl injection 1-10 mL, Intracatheter, PRN ??? albuterol-ipratropium (DUO-NEB) nebulizer solution 3 mL, Inhalation, q4h PRN ??? ibuprofen (MOTRIN) tablet 400 mg, Oral, q6h PRN ??? ondansetron (ZOFRAN) injection 4 mg, Intravenous, q6h PRN ??? oxyCODONE (ROXICODONE) oral solution 5 mg, Oral, q4h PRN ? prochlorperazine (COMPAZINE) injection 10 mg, Intravenous, q6h PRN PHYSICAL EXAM: General: no acute distress, resting comfortably Resp: unlabored breathing on nasal cannula, mild stridor CV: warm and well perfused HEENT: No significant crepitus at neck or supraclavicular areas, no notable facial edema. Bilateralneck incisions intact, sergo secured in place with suture at midline. Neck flexed with pillow behind neck. AGUSTÍN drains x2 in place at bilateral necks, left neck with small amount of ss output, right neck with small amount of ss output. Tenderness to palpation around neck incisions. 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 PLAN: - Continue low fat <25g clear liquid diet, octreotide 100mcg TID - Okay for discharge after endo home recs, tolerating diet, no more evidence of chyle leak - Will remove drains/sutures prior to d/c - PRN oxycodone for pain management and suppression of cough reflex - AGUSTÍN drains to bulb suction - neck must stay flexed at all times - f/u Endocrine recommendations: - would monitor total Ca/albumin, if less than 8 redose (corrected for albumin) Iv Ca gluconate - repeat labs in am - Continue Oscal 500-200 2 tablets TID - continue calcitriol 0.50??mcg BID - thyroglobulin 192.2 on 08/21/20 - Vit d adequate - continue Levothyroxine 112 mcg and thyroid medication must be 4 hours apart from any Calcium pill Daily Labs: CBC, BMP, Mg, Phos daily, albumin, q6h iCal Other labs- thyroglobulin reflex profile, vitamin D, urine Ca, PTH Bowel Regimen: senokot, miralax daily PT/OT, activity: AAT, PT/OT ordered 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 VTE Prophy: SCDs, q8h HSQ Endo/thyroid/parathyroid: f/u endo recs as above Drains: AGUSTÍN drains bilateral to bulb (LIS if not holding) Wound care: baci to incisions BID Stitches: bilateral necks, right medial incision opened 08/20 SW needs: likely needs HH Dispo: Floor Follow up: ENT- to be determined Endocrine- 6 weeks post surgery Vince Willingham MD Otolaryngology-Head and Neck Surgery 08/28/20 PURCHASING * Vincent Bird RN - 08/28/2020 11:20 AM CST Problem: Tobacco Use Goal: Inpatient tobacco-use cessation counseling participation Outcome: Progressing Problem: Fall Risk Goal: Fall risk and fall related injury risk are minimized (interventions related to the fall risk can be found in the flowsheet documentation) Outcome: Progressing Problem: Pain/Discomfort Goal: Patient exhibits reduced pain/discomfort as evidenced by pain scores Outcome: Progressing Problem: Thrombocytopenia/Bleeding Precautions Goal: Excessive bleeding will be minimized Outcome: Progressing PURCHASING * Kareen Barrera PT - 08/28/2020 11:00 AM CST [facility] PhysicalTherapy Progress Note Patient: Elizabeth Caicedo Med Record Number: [id number] Date of : 1960 Age: [age] year old Face Mask: therapist and patient wore mask Tech: no Discharge Recommendation: Patient should be able to return home when medically cleared by physicianteam. Therapy will continue to treat patient while in hospital. See current amount of assist neededbelow. Subjective: I don't sit around. Pt agrees to PT Patient currently using Wheeled Walker and pt confirms that she has equipment at home, no equipmentneeds to issue Mental Status: alert and oriented x 4, receptive to education At start of therapy session, patient found in bed with no alarm Pain: Patient has 0 out of 10 pain at rest and 5 out of 10 headache with mobility and RN aware Weight Bearing Status: no WB restriction, must keep neck in flexion per MD order Mobility: frequent cues to maintain neck flexion Rolling: independent Supine to Sit:Independent Sit to Supine: not tested, up in chair Sit to Stand:Stand By Assist Bed to Chair: standby assist Gait: Device: own straight cane for ambulation to/from bathroom and Wheeled Walker for ambulation in hallway Assistance: Stand By Assist Distance: 20 feet in room with own straight cane per pt insistence and 250 feet in hallway with w/w Deviations: cues to maintain neck in flexion, decreased LLE stance time and step width, decreased adrien step lengths, decreased kary; baseline left hip pain per pt with gait Balance: Static Sitting: good Dynamic sitting: good Static Standing: good with device Dynamic Standing: fair plus with device Stairs : Vitals: (*Assess the 3 levels of oxygen saturations both for room air and 02 unless rest on room air is 88% or less). Rest HR: 79 Sp02 94% RA Ex/Gait/Activity Without 02 HR: 95 Sp02 93% RA Observations: no symptom reported Activity Tolerance: Patient's activity tolerance: good Treatment/therapeutic Exercise: pt was seen for transfers, gait training, HEP seated exercises adrien UE/LE with handout provided x 10 reps to include adrien UE arm press-ups, elbow curls and shoulder abd,adrien LE full arc quads, marching and hip abd/add. Head/neck flexion positioning in recliner chair. Pt education and VS monitoring provided. Patient/Family Teaching: Gait and Mobility, head/neck positioning, use of w/w, fall prevention, HEP Patient demonstrated Good understanding of instructions given. Short Term Goals: Goal Formation With patient Patient will perform bed mobility: Independent: met Patient will transfer sit to/from stand: Independent Patient will transfer bed to/from chair: Independent Patient will ambulate 75 feet with Independent and appropriate AD Patient will ascend/descend 4 steps: Independent Hoop Bending Machine Operator Goal(s): Patient to be independent/baseline with functional mobility and self care and be able to safely discharge to prior level of care ?? Update Treatment Plan: Goals ongoing, continue PT POC to address gait disturbance and regain functional mobility independence. If patient is discharged from the facility, this note serves as a discharge note if further physical therapy visits did not occur. Following therapy session, patient left recliner chair with head/neck positioned in flexion with pillows and back reclined, call light and needs in reach. Pt refused chair alarm and instructed on need to call for assistance prior to getting up, RN, Vincent, informed. PURCHASING * Kathleen Bates RN - 08/27/2020 10:11 PM CST Problem: Tobacco Use Goal: Inpatient tobacco-use cessation counseling participation Outcome: Progressing Problem: Fall Risk Goal: Fall risk and fall related injury risk are minimized (interventions related to the fall risk can be found in the flowsheet documentation) Outcome: Progressing Problem: Low Fall Risk (Score 7-10) Goal: Patient will remain as independent as possible. Outcome: Progressing Goal: Patient will have lower fall risk. Outcome: Progressing Goal: Patient will have lower injury risk. Outcome: Progressing Goal: Patient will remain safe from falls and injury. Outcome: Progressing Goal: Patient/family will understand fall prevention measures. Outcome: Progressing Goal: Patient/family will understand injury reduction measures. Outcome: Progressing Goal: Patient/family will comply with fall program. Outcome: Progressing Goal: Patient/family verbalize fall prevention strategies to implement after discharge. Outcome: Progressing Problem: Pain/Discomfort Goal: Patient exhibits reduced pain/discomfort as evidenced by pain scores Outcome: Progressing Goal: Patient uses pharmacological and non-pharmacological pain management strategies. Outcome: Progressing Goal: Patient verbalizes acceptable level of pain relief and ability to engage in desired activity. Outcome: Progressing Problem: Thrombocytopenia/Bleeding Precautions Goal: Excessive bleeding will be minimized Outcome: Progressing Goal: Precautionary measures taken to prevent bleeding Outcome: Progressing PURCHASING * Ying Tabares PT - 08/27/2020 1:19 PM CST [facility] Department of Physical Medicine & Rehabilitation Progress Note Patient: Elizabeth Caicedo [facility] Record Number: [id number] Date of : 1960 Age: [age] year old 08/27/20 1310 Missed Visit Missed Visit Refused Patient refused therapy intervention due to RN Notified of Refusal;Fatigue PT attempted visit; patient found walking from bathroom using her cane when PT arrived, appears unsteady, and uses 2 hands on cane, with cane positioned in front of her. Assisted patient back toward the bed; patient declines working with PT, stating I'm too weak for that; they don't give me anything to eat; I'm too weak and unsteady PT explained to patient that physical therapy can help with her balance, strength and walking; patient continued to refuse, stating nothing will help me get stronger if I can't get anything to eat Patient refuses gait training/exercise/mobility at this time. Will continue to follow. PURCHASING * Charisma Truong, OT - 08/27/2020 10:59 AM CST [facility] Occupational Therapy Progress Note Patient: Elizabeth Caicedo Med Record Number: [id number] Date of : 1960 Age: [age] year old Face Mask: Therapist wore procedural mask and eye protection during session Tech: No ?? Discharge Recommendation: Patient should be able to return home when medically cleared by physicianteam. Therapy will continue to treat patient while in hospital. See current amount of assist neededbelow. ? Precautions: Fall ?? Subjective: I need to get up. ?? At start of therapy session, patient found in bed and with no alarm. ?? Pain: Patient has 0 out of 10 pain. Nurse notified. ?? Activities of Daily Living ?? Feeding: NT, hand to mouth intact Grooming/Bathing: Not tested, declined 2/2 completing this AM while standing upright at sink Upper Extremity Dressing: Stand by assist for adjusting gown in standing ?? Lower Extremity Dressing: Stand By Assist for adjusting socks while sitting upright in chair Toileting/Transfers: not tested, denies toileting need, stand by assist for transfer from bed to chair ?? Mobility: ?? Assist device: Straight Cane, ?? Rolling: not tested ?? Supine to/from Sit: Stand By Assist ?? Sit to/from Stand: Stand By Assist ?? Bed to/from Chair: Stand By Assist ?? Functional Mobility: functional house hold distance with Stand By Assist ?? Splint Issued/Checked: none ?? Splint Check Completed: N/A ? Balance: ?? Static Sitting: good ?? Dynamic Sitting: good ?? Static Standing: fair plus ?? Dynamic Standing: fair plus ? Vitals: Rest HR: 82 SpO2 ?? SpO2 100% 3 L 02 ?? Ex/Gait/Activity Without 02 HR: 88 SpO2 92%-94% Room Air Post Activity HR: 79 SpO2 ?? SpO2 96% ?? Room Air Observations: NAD. Pt denies SOB, lightheadedness, or dizziness during all activity. Pt requested to leave 02 off upon termination of session, 02 sats 96%. JOSY Goodwin notified and aware, NC in reach. ?? Activity tolerance: fair plus ? Cognitive/Perceptual: Pt is alert and oriented x4. Pt follows simple 1 step commands 100% of the time. Pt demonstrates fair safety awareness and insight into deficits. ?? Treatment/Therapeutic Exercise: Treatment session this date focused on ADL training Functional transfer training Endurance training Bed mobility Energy conservation Safety awareness ?? Patient/Family Teaching: Mobility and Self care ?? Equipment Issued: none ? Update Treatment Plan/Goals : Pt continues to benefit from skilled OT to improve independence with activities of daily living, increase strength, endurance, range of motion and decrease pain. Continue per POC. ?? Short Term Goals: Patient will perform grooming?Independently Patient will perform supine to sit?Independently Patient will perform sit to stand?Independently Patient will perform bed to chair?Independently ?? Alf Goal: Patient to be independent/baseline with functional mobility and self care and be able to safely discharge to prior level of care If patient is discharged from the facility, this note serves as a discharge note if further occupational therapy visits did not occur. Following therapy session, patient left in patient bedside chair, with chair alarm on, with call light within reach and with Christa FERRIS aware. PURCHASING * Christa Crawford RN - 08/27/2020 7:47 AM CST Problem: Tobacco Use Goal: Inpatient tobacco-use cessation counseling participation Outcome: Progressing Problem: Fall Risk Goal: Fall risk and fall related injury risk are minimized (interventions related to the fall risk can be found in the flowsheet documentation) Outcome: Progressing Problem: Low Fall Risk (Score 7-10) Goal: Patient will remain as independent as possible. Outcome: Progressing Goal: Patient will have lower fall risk. Outcome: Progressing Goal: Patient will have lower injury risk. Outcome: Progressing Goal: Patient will remain safe from falls and injury. Outcome: Progressing Goal: Patient/family will understand fall prevention measures. Outcome: Progressing Goal: Patient/family will understand injury reduction measures. Outcome: Progressing Goal: Patient/family will comply with fall program. Outcome: Progressing Goal: Patient/family verbalize fall prevention strategies to implement after discharge. Outcome: Progressing Problem: Pain/Discomfort Goal: Patient exhibits reduced pain/discomfort as evidenced by pain scores Outcome: Progressing Goal: Patient uses pharmacological and non-pharmacological pain management strategies. Outcome: Progressing Goal: Patient verbalizes acceptable level of pain relief and ability to engage in desired activity. Outcome: Progressing Problem: Thrombocytopenia/Bleeding Precautions Goal: Excessive bleeding will be minimized Outcome: Progressing Goal: Precautionary measures taken to prevent bleeding Outcome: Progressing PURCHASING * Fabian Flores MD - 08/27/2020 7:27 AM CST Otolaryngology Progress Note 08/27/20 SUBJECTIVE: AF, VSS. No acute events overnight. Decreased tenderness around the neck. Had a BM yesterday. AGUSTÍN drains with little very output in last 24 hrs (4 and 2cc). Denies tingling/numbness around lips or extremities. VITALS: Temp (30hrs) Max:98.5 ??F (36.9 ??C) Vitals: 08/26/20 0759 08/26/20 1145 08/26/20 2325 08/27/20 0428 BP: 148/67 120/62 121/79 132/89 Pulse: 78 76 69 75 Resp: 18 18 18 16 Temp: 98.1 ??F (36.7 ??C) 98.5 ??F (36.9 ??C) 97.8 ??F (36.6 ??C) 98.1 ??F (36.7 ??C) SpO2: 94% 99% 98% 98% Weight: Height: Intake/Output Summary (Last 24 hours) at 08/27/2020 0727 Last data filed at 08/27/2020 0636 Gross per 24 hour Intake 1150 ml Output 1206 ml Net -56 ml MEDICATIONS FOR CURRENT ENCOUNTER: SCHEDULED MEDICATIONS: ??? 0.9% NaCl injection 3 mL, Intracatheter, q8h ??? acetaminophen (TYLENOL) tablet 500 mg, Oral, q6h ??? atorvastatin (LIPITOR) tablet 40 mg, Oral, AT BEDTIME ??? calcitriol (ROCALTROL) capsule 0.5 mcg, Oral, BID ??? calcium-vitamin D (OS-YANNICK 500 + D) 500-200 mg-unit tablet 2 tablet, Oral, TID WC ??? clonazePAM (KlonoPIN) tablet 0.5 mg, Oral, BID ??? heparin injection 5,000 Units, Subcutaneous, q8h ??? levothyroxine (SYNTHROID) tablet 112 mcg, Oral, QDAY AT 0600 ??? melatonin tablet 3 mg, Oral, QPM ??? octreotide (SandoSTATIN) injection 100 mcg, Subcutaneous, TID ??? pantoprazole (PROTONIX) injection 40 mg, Intravenous, QDAY ??? PARoxetine (PAXIL) tablet 40 mg, Oral, QDAY ??? polyethylene glycol 3350 (MIRALAX) packet 17 g, Oral, QDAY ??? senna (SENOKOT) tablet 8.6 mg, Oral, QDAY ? traZODone (DESYREL) tablet 50 mg, Oral, AT BEDTIME ?? CONTINUOUS MEDICATIONS: PRN MEDICATIONS: ??? 0.9% NaCl injection 1-10 mL, Intracatheter, PRN ??? albuterol-ipratropium (DUO-NEB) nebulizer solution 3 mL, Inhalation, q4h PRN ??? ibuprofen (MOTRIN) tablet 400 mg, Oral, q6h PRN ??? ondansetron (ZOFRAN) injection 4 mg, Intravenous, q6h PRN ??? oxyCODONE (ROXICODONE) oral solution 5 mg, Oral, q4h PRN ? prochlorperazine (COMPAZINE) injection 10 mg, Intravenous, q6h PRN PHYSICAL EXAM: General: no acute distress, resting comfortably Resp: unlabored breathing on nasal cannula, mild stridor CV: warm and well perfused HEENT: No significant crepitus at neck or supraclavicular areas, no notable facial edema. Bilateralneck incisions intact, sergo secured in place with suture at midline. Neck flexed with pillow behind neck. AGUSTÍN drains x2 in place at bilateral necks, left neck with small amount of ss output, right neck with small amount of ss output. Tenderness to palpation around neck incisions. 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 PLAN: - Continue low fat <25g clear liquid diet, octreotide 100mcg TID - PRN oxycodone for pain management and suppression of cough reflex - AGUSTÍN drains to bulb suction (low intermittent wall suction if not holding bulb) - neck must stay flexed at all times - f/u Endocrine recommendations: - would monitor total Ca/albumin, if less than 8 redose (corrected for albumin) Iv Ca gluconate - repeat labs in am - Continue Oscal 500-200 2 tablets TID - continue calcitriol 0.50??mcg BID - thyroglobulin 192.2 on 08/21/20 - Vit d adequate - continue Levothyroxine 112 mcg and thyroid medication must be 4 hours apart from any Calcium pill Daily Labs: CBC, BMP, Mg, Phos daily, albumin, q6h iCal Other labs- thyroglobulin reflex profile, vitamin D, urine Ca, PTH Bowel Regimen: senokot, miralax daily PT/OT, activity: AAT, PT/OT ordered 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 VTE Prophy: SCDs, q8h HSQ Endo/thyroid/parathyroid: f/u endo recs as above Drains: AGUSTÍN drains bilateral to bulb (LIS if not holding) Wound care: baci to incisions BID Stitches: bilateral necks, right medial incision opened 08/20 Trach: none SW needs: likely needs Dispo: Floor Follow up: ENT- to be determined Endocrine- 6 weeks post surgery Fabian Flores MD PGY-3 Otolaryngology - Head and Neck Surgery 08/27/20 7:27 AM PURCHASING * Daiana Garcia RN - 08/26/2020 9:07 PM CST Problem: Fall Risk Goal: Fall risk and fall related injury risk are minimized (interventions related to the fall risk can be found in the flowsheet documentation) Outcome: Progressing Problem: Low Fall Risk (Score 7-10) Goal: Patient will remain as independent as possible. Outcome: Progressing Problem: Pain/Discomfort Goal: Patient exhibits reduced pain/discomfort as evidenced by pain scores Outcome: Progressing PURCHASING * Jessica Merritt RN - 08/26/2020 4:12 PM CST Referrals sent for [facility]. Ketan with [facility] for DME needs. PURCHASING * Munira Bates DO - 08/26/2020 3:29 PM CST [facility] Progress note Subjective: Taking in more po but still liquid diet, doing fine with pills, ambulating in room, not choking on liquids Objective: Vitals: BP 120/62 Pulse 76 Temp 98.5 ??F (36.9 ??C) (Oral) Resp 18 Ht 5' 1 (1.549 m) Wt 154 lb (69.9 kg) SpO2 99% BMI 29.1 kg/m2 Exam: Gen: sleeping, no distress, drains in place, hoarse voice Data: CBC: Recent Labs Component Name 08/26/20 0041 08/25/20 0416 08/24/20 0005 WBC 10.2 9.6 11.6* RBC 4.31 4.53 4.28 HGB 12.6 13.1 12.5 HCT 38.4 40.6 37.8 BMP: Recent Labs Component Name 08/26/20 0041 08/25/20 0416 08/24/20 0005 NA 144 141 142 CL 99 97* 96* CO2 33* 32* 34* BUN 9 13 8 CREATININE 0.6 0.7 0.5* CALCIUM 7.4* 7.9* 8.3* LFTs: Recent Labs Component Name 08/26/20 0041 08/25/20 0416 08/24/20 0005 03/07/20 1519 03/07/20 1519 AST - - - - 23 ALT - - - - 26 ALKPHOS - - - - 94 TBILI - - - - 0.5 ALB 2.8* 2.8* 2.9* - 3.8 - = values in this interval not displayed. Magnesium: No results for input(s): MG in the last 01246 hours. Phosphorus: Recent Labs Component Name 08/26/20 0041 08/25/20 0416 08/24/20 0005 PHOS 4.8* 6.0* 6.0* Thyroid studies: Assessment: Hypocalcemia post thyroidectomy Postoperative hypothyroidism Postoperative hypoparathyroidism, ? Temporary Thyroid cancer, pathology pending Hx tobacco abuse Hx hemoptysis Abnormal MRI brain that needs follow up still (1.Corresponding to the abnormality seen on the recent [...] available). Short interval follow-up with contrast is recommended.) ?? Recommendations: Hypocalcemia post thyroidectomy - would monitor total Ca/albumin, if Ca corrected for albumin less than 8 redose Iv Ca gluconate - Ca corrected 8.4 and would continue with orals tody - Continue Oscal 500-200 1 tab TID - continue calcitriol 0.50 mcg BID - thyroglobulin 192.2 on 08/21/20 - Vit d adequate - continue Levothyroxine 112 mcg and thyroid medication must be 4 hours apart from any Calcium pill - pathology pending still We will make follow up arrangements Munira Bates DO Endocrinology Fellow D/w my attending Dr. Bustamante PURCHASING Associated attestation - Yosi Bustamante MD - 08/26/2020 3:55 PM VP PURCHASING I HAVE SEEN AND EXAMINED THE PATIENT WITH THE ENDOCRINE FELLOW AND I AGREE WITH THE FINDINGS AND PLAN OF CARE DOCUMENTED BY THE ENDOCRINE FELLOW DATE OF SERVICE 08/26/2020 Signed electronically Yosi Bustamante MD Professor of Internal Medicine CC SUSPECTED THYROID CANCER HYPOTHYROIDISM HYPOPARATHYROIDISM HYPOCALCEMIA S 60 YEAR OLD WHITE FEMALE NO NAUSEA NO VOMITING COUGH IN THE AM (+) CLEARS WITH HOT TEA NO DYSPHAGIA NO DYSPNEA DYSPHONIA (+) NO PARESTHESIAS LAB Results for ELIZABETH CAICEDO ( ) as of 08/26/2020 15:50 Ref. Range 08/25/2020 16:06 08/26/2020 00:41 08/26/2020 06:43 08/26/2020 11:35 Sodium Latest Ref Range: 136 - 145 mmol/L 144 Potassium Latest Ref Range: 3.5 - 4.5 mmol/L 3.6 Chloride Latest Ref Range: 98 - 107 mmol/L 99 CO2 Latest Ref Range: 22 - 29 mmol/L 33 (H) Anion Gap Latest Ref Range: 8 - 18 16 BUN Latest Ref Range: 7 - 26 mg/dL 9 Creatinine Latest Ref Range: 0.6 - 1.2 mg/dL 0.6 eGFR Latest Ref Range: >60 mL/min/1.73 m2 >60 Glucose Latest Ref Range: 70 - 115 mg/dL 127 (H) Calcium Latest Ref Range: 8.4 - 10.2 mg/dL 7.4 (L) Ionized Calcium Whole Blood Latest Units: mmol/L 1.01 1.03 1.00 1.01 Adjusted Ionized Calcium Latest Ref Range: 1.19 - 1.34 mmol/L 1.03 (L) 1.01 (L) 1.01 (L) 0.99 (L) Magnesium Latest Ref Range: 1.6 - 2.6 mg/dL 1.8 Phosphorus Latest Ref Range: 2.3 - 4.7 mg/dL 4.8 (H) BUN/Creatinine Ratio Latest Ref Range: 7 - 23 15 Albumin Latest Ref Range: 3.4 - 5.0 g/dL 2.8 (L) pH Whole Blood Latest Ref Range: 7.35 - 7.45 7.43 7.36 7.42 7.36 Osmolality Calculated Latest Ref Range: 270 - 300 mOsm/kg 298 PTH Intact Latest Ref Range: 8.0 - 77.0 pg/mL 4.4 (L) WBC Latest Ref Range: 3.5 - 10.5 10??3/uL 10.2 RBC Latest Ref Range: 3.90 - 5.00 10??6/uL 4.31 Hemoglobin Latest Ref Range: 12.0 - 15.5 g/dL 12.6 Hematocrit Latest Ref Range: 35.0 - 45.0 % 38.4 MCV Latest Ref Range: 81.0 - 97.0 fL 89.1 MCH Latest Ref Range: 28.0 - 34.0 pg 29.2 MCHC Latest Ref Range: 32.0 - 36.0 g/dL 32.8 Platelet Count Latest Ref Range: 150 - 400 10??3/uL 328 RDW-SD Latest Ref Range: 36.0 - 50.0 fL 39.5 RDW Latest Ref Range: 11.2 - 14.8 % 12.0 MPV Latest Ref Range: 9.3 - 12.8 fL 9.4 nRBC Absolute Latest Ref Range: 0 10??3/uL 0.00 nRBC Auto Latest Ref Range: 0 /100 WBC 0.0 O BP 120/62 Pulse 76 Temp 98.5 ??F (36.9 ??C) (Oral) Resp 18 Ht 5' 1 (1.549 m) Wt 154 lb (69.9 kg) SpO2 99% BMI 29.1 kg/m2 Well developed, well nourished, white female, no acute distress, alert and oriented, normocephalic ASSESSMENT NO SYMPTOMS OF HYPOCALCEMIA HYPOTHYROIDISM HYPOPARATHYROIDISM SUSPECTED THYROID CANCER PATH REPORT PENDING PLAN CONTINUE LEVOTHYROXINE 112 MCG Instructions for taking levothyroxine Brand name is preferred OR SAME SOURCE Take thyroid pill all by itself Take thyroid pill one hour before food or 2 to 3 hours after food Heat, humidity, and direct sunlight will cause a loss of potency Never store thyroid pill in the bathroom CONTINUE CALCITRIOL BID CONTINUE OSCAL TID CONTINUE TO MONITOR TOTAL CALCIUM EVERY 12 HOURS Yosi Bustamante MD Professor of Internal Medicine Division of Endocrinology Department of Internal Medicine * Krissy Mendoza RN - 08/26/2020 11:46 AM CST Problem: Fall Risk Goal: Fall risk and fall related injury risk are minimized (interventions related to the fall risk can be found in the flowsheet documentation) Outcome: Progressing Problem: Low Fall Risk (Score 7-10) Goal: Patient will remain as independent as possible. Outcome: Progressing Goal: Patient will have lower fall risk. Outcome: Progressing Problem: Pain/Discomfort Goal: Patient uses pharmacological and non-pharmacological pain management strategies. Outcome: Progressing PURCHASING * Lashon Barrow, PT - 08/26/2020 11:33 AM CST [facility] PhysicalTherapy Progress Note Patient: Elizabeth Caicedo Med Record Number: [id number] Date of : 1960 Age: [age] year old Face Mask: therapist and patient wore mask Tech: no Discharge Recommendation: Patient should be able to return home when medically cleared by physicianteam. Therapy will continue to treat patient while in hospital. See current amount of assist neededbelow. Subjective: Reports that she will walk Patient currently using Wheeled Walker and needs equipment if d/c home. Mental Status: alert and oriented x 3 At start of therapy session, patient found in bed. Pain: Patient has 0 out of 10 pain Weight Bearing Status: no restrictions Mobility: Rolling: not tested Supine to Sit:Independent Sit to Supine: Independent Sit to Stand:Stand By Assist Bed to Chair: not tested Gait: Device:Wheeled Walker Assistance: Stand By Assist Distance: 100 feet x 1, 150 feet x 1 Deviations: Balance: Static Sitting: good Dynamic sitting: good Static Standing: good Dynamic Standing: good Stairs : NT Vitals: (*Assess the 3 levels of oxygen saturations both for room air and 02 unless rest on room air is 88% or less). Rest BP: HR: Sp02 Sp02 97% Room Air L O2 RA Ex/Gait/Activity Without 02 BP: HR: Sp02 89% Room Air RA Ex/Gait/Activity With 02 BP: HR: Sp02 L O2 Post Activity BP: HR: Sp02 Sp02 94% L O2 Room Air RA Observations: some SOB at end of ambulation, O2 sat back up after about 15 seconds of deep breathing Activity Tolerance: Patient's activity tolerance: good Treatment/therapeutic Exercise: gait, mobility and transfers Patient/Family Teaching: Gait and Mobility Patient demonstrated Good understanding of instructions given. Short Term Goals: Goal Formation With patient Patient will perform bed mobility: Independent: met Patient will transfer sit to/from stand: Independent Patient will transfer bed to/from chair: Independent Patient will ambulate 75 feet with Independent and appropriate AD Patient will ascend/descend 4 steps: Independent Alf Goal(s): Patient to be independent/baseline with functional mobility and self care and be able to safely discharge to prior level of care ?? Update Treatment Plan: Continue as per plan If patient is discharged from the facility, this note serves as a discharge note if further physical therapy visits did not occur. Following therapy session, patient left in bed. PURCHASING * Charisma Truong OT - 08/26/2020 10:09 AM CST [facility] Occupational Therapy Progress Note Patient: Elizabeth Caicedo Med Record Number: [id number] Date of : 1960 Age: [age] year old Face Mask: Therapist wore procedural mask and eye protection during session Tech: No Discharge Recommendation: Patient should be able to return home when medically cleared by physicianteam. Therapy will continue to treat patient while in hospital. See current amount of assist neededbelow. Precautions: Fall Subjective: I want to get cleaned up. At start of therapy session, patient found in bed and with no alarm. Pain: Patient has 0 out of 10 pain. Nurse notified. Activities of Daily Living Feeding: NT, hand to mouth intact Grooming/Bathing: Stand By Assist with set up for bathing UB while sitting upright in chair, moderate assist for bathing LB while sitting upright in chair, stand by assist for bathing prateek area in standing. Stand by assist for combing hair while sitting upright in chair Upper Extremity Dressing: Minimal assist for doffing/donning gown while sitting upright in chair 2/2 drain and line management Lower Extremity Dressing: Stand By Assist for doffing/donning socks while sitting upright in chair Toileting/Transfers: not tested, denies toileting need, stand by assist for transfer from bed to chair Mobility: Assist device: Straight Cane, portable oxygen tank Rolling: not tested Supine to/from Sit:Stand By Assist Sit to/from Stand: Stand By Assist Bed to/from Chair: Stand By Assist Functional Mobility: in room with Stand By Assist Splint Issued/Checked: none Splint Check Completed: N/A Balance: Static Sitting: good Dynamic Sitting: good Static Standing: fair plus Dynamic Standing: fair plus Vitals: Rest HR: 79 SpO2 SpO2 100% 3 L 02 Ex/Gait/Activity Without 02 HR: 88 SpO2 90%-94% Room Air Ex/Gait/Activity With 02 HR: 82 SpO2 95%-100% 3 L 02 Post Activity HR: 79 SpO2 SpO2 100% 3 L 02 Room Air Observations: NAD. Pt denies SOB, lightheadedness, or dizziness during all activity. Pt continues to benefit from min verbal cues for PLB while completing ADLs Activity tolerance: fair plus Cognitive/Perceptual: Pt is alert and oriented x4. Pt follows simple 1 step commands 100% of the time. Pt demonstrates fair safety awareness and insight into deficits. Treatment/Therapeutic Exercise: Treatment session this date focused on ADL training Functional transfer training Endurance training Bed mobility Energy conservation Safety awareness Patient/Family Teaching: Mobility and Self care Equipment Issued: none Update Treatment Plan/Goals : Pt continues to benefit from skilled OT to improve independence with activities of daily living, increase strength, endurance, range of motion and decrease pain. Continue per POC. Short Term Goals: Patient will perform grooming Independently Patient will perform supine to sit Independently Patient will perform sit to stand Independently Patient will perform bed to chair Independently ?? Hoop Bending Machine Operator Goal: Patient to be independent/baseline with functional mobility and self care and be able to safely discharge to prior level of care If patient is discharged from the facility, this note serves as a discharge note if further occupational therapy visits did not occur. Following therapy session, patient left in patient bedside chair, with chair alarm on, with call light within reach and with RNKrissy aware. PURCHASING * Juliette Parrish RD/CANDE - 08/26/2020 9:07 AM CST Clinical Nutrition Comments: Pt screened for LOS criteria. Intakes are adequate, consuming 75-100% of meals. No GI issues noted, last BM 08/25. No nutrition interventions warranted at this time. RD will continue to monitor. Diet order accuracy Current diet order: Clear Liquids Nutrition recommendation: agree with current nutrition order P.O.Intake for the past 48 hrs:% Meal Taken Av % Min: 75 % Max: 100 % Height: 5' 1 (154.9 cm) Weight: 154 lb (69.9 kg) Body mass index is 29.1 kg/m??.BMI Range: Overweight Laboratory values reviewed. Medications noted. No acute nutrition issues identified at this time. Recommendations: Advance diet as medically able Monitor nutrition per nutrition guidelines. PURCHASING * Vince Willingham MD - 08/26/2020 7:02 AM CST Otolaryngology Progress Note 08/26/20 SUBJECTIVE: AF, VSS. No acute events overnight. Some milky drainage from neck over the weekend concerning for chyle leak. She feels this has since slowed and the fluid appears less milky and more red again. Pain/tenderness around neck stable. Feels some tightness with breathing in the mornings that dissipates throughout the day. VITALS: Temp (30hrs) Max:98.5 ??F (36.9 ??C) Vitals: 08/25/208 08/25/20 2017 08/26/20 0005 08/26/20 0420 BP: 126/71 129/67 144/88 Pulse: 72 77 72 Resp: 18 18 Temp: 98.5 ??F (36.9 ??C) 98.3 ??F (36.8 ??C) 98 ??F (36.7 ??C) SpO2: 97% 96% 99% 97% Weight: Height: Intake/Output Summary (Last 24 hours) at 08/26/2020 0703 Last data filed at 08/26/2020 0605 Gross per 24 hour Intake 1450 ml Output 752 ml Net 698 ml MEDICATIONS FOR CURRENT ENCOUNTER: SCHEDULED MEDICATIONS: ??? 0.9% NaCl injection 3 mL, Intracatheter, q8h ??? acetaminophen (TYLENOL) tablet 500 mg, Oral, q6h ??? atorvastatin (LIPITOR) tablet 40 mg, Oral, AT BEDTIME ??? calcitriol (ROCALTROL) capsule 0.5 mcg, Oral, BID ??? calcium-vitamin D (OS-YANNICK 500 + D) 500-200 mg-unit tablet 2 tablet, Oral, TID WC ??? clonazePAM (KlonoPIN) tablet 0.5 mg, Oral, BID ??? heparin injection 5,000 Units, Subcutaneous, q8h ??? levothyroxine (SYNTHROID) tablet 112 mcg, Oral, QDAY AT 0600 ??? melatonin tablet 3 mg, Oral, QPM ??? octreotide (SandoSTATIN) injection 100 mcg, Subcutaneous, TID ??? pantoprazole (PROTONIX) injection 40 mg, Intravenous, QDAY ??? PARoxetine (PAXIL) tablet 40 mg, Oral, QDAY ??? polyethylene glycol 3350 (MIRALAX) packet 17 g, Oral, QDAY ??? senna (SENOKOT) tablet 8.6 mg, Oral, QDAY ??? traZODone (DESYREL) tablet 50 mg, Oral, AT BEDTIME ? [COMPLETED] calcium gluconate 2 g in 100 mL NaCl 0.675%, Intravenous, Once ?? CONTINUOUS MEDICATIONS: PRN MEDICATIONS: ??? 0.9% NaCl injection 1-10 mL, Intracatheter, PRN ??? ibuprofen (MOTRIN) tablet 400 mg, Oral, q6h PRN ??? ondansetron (ZOFRAN) injection 4 mg, Intravenous, q6h PRN ??? oxyCODONE (ROXICODONE) oral solution 5 mg, Oral, q4h PRN ? prochlorperazine (COMPAZINE) injection 10 mg, Intravenous, q6h PRN PHYSICAL EXAM: General: no acute distress, resting comfortably Resp: unlabored breathing on nasal cannula, mild stridor CV: warm and well perfused HEENT: No significant crepitus at neck or supraclavicular areas, no notable facial edema. Bilateralneck incisions intact, sergo secured in place with suture at midline. Neck flexed with pillow behind neck. AGUSTÍN drains x2 in place at bilateral necks, left neck with ss output, right neck with mostlyss output slightly cloudy, holding bulb suction. Tenderness to palpation around neck incisions. 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 PLAN: - Continue low fat <25g diet, octreotide 100mcg TID - PRN oxycodone for pain management and suppression of cough reflex - AGUSTÍN drains to bulb suction (low intermittent wall suction if not holding bulb) - neck must stay flexed at all times - f/u Endocrine recommendations: - would monitor total Ca/albumin, if less than 8 redose Iv Ca gluconate will give 2g IV CaCO3 todayfor total Ca 7.9, iCal 1.01 - repeat labs in am - Continue Oscal 500-200 TID - continue calcitriol 0.50??mcg BID - thyroglobulin 192.2 on 08/21/20 - Vit d adequate - continue Levothyroxine 112 mcg and thyroid medication must be 4 hours apart from any Calcium pill Daily Labs: CBC, BMP, Mg, Phos daily, albumin, q6h iCal Other labs- thyroglobulin reflex profile, vitamin D, urine Ca, PTH Bowel Regimen: senokot, miralax daily PT/OT, activity: AAT, PT/OT ordered 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 VTE Prophy: SCDs, q8h HSQ Endo/thyroid/parathyroid: f/u endo recs as above Drains: AGUSTÍN drains bilateral to bulb (LIS if not holding) Wound care: baci to incisions BID Stitches: bilateral necks, right medial incision opened 08/20 Trach: none SW needs: likely needs Dispo: Floor Follow up: ENT- to be determined Endocrine- 6 weeks post surgery Fabian Flores MD PGY-3 Otolaryngology - Head and Neck Surgery 08/26/20 7:03 AM PURCHASING * Daiana Garcia RN - 08/25/2020 11:16 PM CST Problem: Pain/Discomfort Goal: Patient exhibits reduced pain/discomfort as evidenced by pain scores 08/25/20202314 by Daiana Garcia RN Outcome: Progressing 08/25/20202311 by Daiana Garcia RN Outcome: Progressing Problem: Thrombocytopenia/Bleeding Precautions Goal: Excessive bleeding will be minimized Outcome: Progressing PURCHASING * Krissy Mendoza RN - 08/25/2020 12:17 PM CST Problem: Low Fall Risk (Score 7-10) Goal: Patient will remain as independent as possible. Outcome: Progressing Goal: Patient will have lower fall risk. Outcome: Progressing Goal: Patient will have lower injury risk. Outcome: Progressing Problem: Pain/Discomfort Goal: Patient exhibits reduced pain/discomfort as evidenced by pain scores Outcome: Progressing Goal: Patient uses pharmacological and non-pharmacological pain management strategies. Outcome: Progressing Goal: Patient verbalizes acceptable level of pain relief and ability to engage in desired activity. Outcome: Progressing PURCHASING * Munira Bates DO - 08/25/2020 9:25 AM CST Endocrinology Plan of care Note Calcium trend reviewed Phosphorus increasing Ca corrected for albumin above 8 today. Recommendation: Would hold on the Iv Ca for today and adjust po regimen Increase Oscal to 2 tabs TID Continue Calcitriol 0.5 mcg BID Continue levothyroxine 112 mcg daily Pathology pending Munira Bates DO Endocrinology Fellow PURCHASING * Fabian Flores MD - 08/25/2020 9:08 AM CST Otolaryngology Progress Note 08/25/20 SUBJECTIVE: Had episode of increased coughing yesterday after drinking some water, and subsequently had increased drainage through left neck drain of milky white fluid concerning for chyle leak. She feels this has since slowed and the fluid appears less milky and more red again. Passing gas but still no BM. Denies tingling/numbness around lips/fingers/toes. Slight increased pain around neck. VITALS: Temp (30hrs) Max:99.2 ??F (37.3 ??C) Vitals: 02/20/210308/25/20 0023 08/25/20 0355 08/25/20 0825 BP: 147/79 104/67 144/76 110/52 Pulse: 70 69 76 72 Resp: 18 18 18 19 Temp: 98.2 ??F (36.8 ??C) 98 ??F (36.7 ??C) 98.1 ??F (36.7 ??C) 97.5 ??F (36.4 ??C) SpO2: 99% 99% 100% 95% Weight: Height: Intake/Output Summary (Last 24 hours) at 08/25/2020 0909 Last data filed at 08/25/2020 0417 Gross per 24 hour Intake 900 ml Output 1230 ml Net -330 ml MEDICATIONS FOR CURRENT ENCOUNTER: SCHEDULED MEDICATIONS: ??? 0.9% NaCl injection 3 mL, Intracatheter, q8h ??? acetaminophen (TYLENOL) tablet 500 mg, Oral, q6h ??? atorvastatin (LIPITOR) tablet 40 mg, Oral, AT BEDTIME ??? calcitriol (ROCALTROL) capsule 0.5 mcg, Oral, BID ??? calcium-vitamin D (OS-YANNICK 500 + D) 500-200 mg-unit tablet 2 tablet, Oral, TID WC ??? clonazePAM (KlonoPIN) tablet 0.5 mg, Oral, BID ??? heparin injection 5,000 Units, Subcutaneous, q8h ??? levothyroxine (SYNTHROID) tablet 112 mcg, Oral, QDAY AT 0600 ??? melatonin tablet 3 mg, Oral, QPM ??? octreotide (SandoSTATIN) injection 100 mcg, Subcutaneous, TID ??? pantoprazole (PROTONIX) injection 40 mg, Intravenous, QDAY ??? PARoxetine (PAXIL) tablet 40 mg, Oral, QDAY ??? polyethylene glycol 3350 (MIRALAX) packet 17 g, Oral, QDAY ??? senna (SENOKOT) tablet 8.6 mg, Oral, QDAY ? traZODone (DESYREL) tablet 50 mg, Oral, AT BEDTIME ?? CONTINUOUS MEDICATIONS: PRN MEDICATIONS: ??? 0.9% NaCl injection 1-10 mL, Intracatheter, PRN ??? ibuprofen (MOTRIN) tablet 400 mg, Oral, q6h PRN ??? ondansetron (ZOFRAN) injection 4 mg, Intravenous, q6h PRN ??? oxyCODONE (ROXICODONE) oral solution 5 mg, Oral, q4h PRN ? prochlorperazine (COMPAZINE) injection 10 mg, Intravenous, q6h PRN PHYSICAL EXAM: General: no acute distress, resting comfortably Resp: unlabored breathing on nasal cannula, mild stridor CV: warm and well perfused HEENT: No significant crepitus at neck or supraclavicular areas, no notable facial edema. Bilateralneck incisions intact, sergo secured in place with suture at midline. Neck flexed with pillow behind neck. AGUSTÍN drains x2 in place at bilateral necks, left neck with ss output, right neck with mostlyss output slightly cloudy, holding bulb suction. Tenderness to palpation around neck incisions. 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 PLAN: - start low fat <25g diet, octreotide 100mcg TID - PRN oxycodone for pain management and suppression of cough reflex - AGUSTÍN drains to bulb suction (low intermittent wall suction if not holding bulb) - neck must stay flexed at all times - f/u Endocrine recommendations: - would monitor total Ca/albumin, if less than 8 redose Iv Ca gluconate will give 2g IV CaCO3 todayfor total Ca 7.9, iCal 1.01 - repeat labs in am - Continue Oscal 500-200 TID - continue calcitriol 0.50??mcg BID - thyroglobulin 192.2 on 08/21/20 - Vit d adequate - continue Levothyroxine 112 mcg and thyroid medication must be 4 hours apart from any Calcium pill Daily Labs: CBC, BMP, Mg, Phos daily, albumin, q6h iCal Other labs- thyroglobulin reflex profile, vitamin D, urine Ca, PTH Bowel Regimen: senokot, miralax daily PT/OT, activity: AAT, PT/OT ordered 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 VTE Prophy: SCDs, q8h HSQ Endo/thyroid/parathyroid: f/u endo recs as above Drains: AGUSTÍN drains bilateral to bulb (LIS if not holding) Wound care: baci to incisions BID Stitches: bilateral necks, right medial incision opened 08/20 Trach: none SW needs: likely needs HH Dispo: Floor Follow up: ENT- to be determined Endocrine- 6 weeks post surgery Fabian Flores MD PGY-3 Otolaryngology - Head and Neck Surgery 08/25/20 9:09 AM PURCHASING * Samuel Pena RN - 08/25/2020 12:35 AM CST Problem: Tobacco Use Goal: Inpatient tobacco-use cessation counseling participation Outcome: Progressing Problem: Fall Risk Goal: Fall risk and fall related injury risk are minimized (interventions related to the fall risk can be found in the flowsheet documentation) Outcome: Progressing PURCHASING * Colton Khan MD - 08/24/2020 4:11 PM CST ENT PLAN OF CARE ENT called to bedside due to increased AGUSTÍN output with new finding of milky white fluid. On exam, patient has milky white fluid in left AGUSTÍN tubing, neck soft, mildly tender to palpation diffusely on both sides. Patient had coughing/gagging episode ~3 hours ago. Was in chair and then returned to bed but denies any episodes of neck pain or sudden neck movement. No shortness of breath, increased neck or chest pain. Denies malaise or subjective fever. Findings appear consistent with chyle leak. Plan - start low fat clear liquid diet - start octreotide 100mc TID subq - close I/O, monitor drain output Colton Khan MD Otolaryngology - Head & Neck Surgery 08/24/2020 4:16 PM PURCHASING * Libia Yanez RN - 08/24/2020 7:37 AM CST Patient lying in bed. Low/locked. Bed alarm on. Call merrill with in reach. No distress noted at present time 1525 left AGUSTÍN drain collection is milky white. 80ml. Notified ENT. At bedside. Will make patient NPOat this time (per order). Patient states she has no discomfort at this time. 1919 unable to give report to Samuel FERRIS. Charge nurse could not find him. Report given to Lizy FERRIS. PURCHASING * Fabian Flores MD - 08/24/2020 6:58 AM CST Otolaryngology Progress Note 08/24/20 SUBJECTIVE: No acute events overnight. Breathing slightly more labored this morning but says it is usually in the morning and also worse with dryness. Passing gas, no BMs, voiding spontaneously. Stable tenderness at the neck. VITALS: Temp (30hrs) Max:99 ??F (37.2 ??C) Vitals: 08/23/20 2040 08/23/20 2043 08/24/20 0007 08/24/20 0400 BP: 156/79 152/82 158/87 Pulse: 80 76 80 Resp: 20 Temp: 98.5 ??F (36.9 ??C) 98.9 ??F (37.2 ??C) 99 ??F (37.2 ??C) SpO2: (!) 88% 98% 98% 99% Weight: Height: Intake/Output Summary (Last 24 hours) at 08/24/2020 0658 Last data filed at 08/24/2020 0600 Gross per 24 hour Intake 2255.61 ml Output 2470 ml Net -214.39 ml MEDICATIONS FOR CURRENT ENCOUNTER: SCHEDULED MEDICATIONS: ??? 0.9% NaCl injection 3 mL, Intracatheter, q8h ??? 0.9% NaCl injection 3 mL, Intracatheter, q8h ??? acetaminophen (TYLENOL) tablet 500 mg, Enteral Tube, q6h ??? atorvastatin (LIPITOR) tablet 40 mg, Enteral Tube, AT BEDTIME ??? calcitriol (ROCALTROL) capsule 0.5 mcg, Oral, BID ??? calcium-vitamin D (OS-YANNICK 500 + D) 500-200 mg-unit tablet 1 tablet, Enteral Tube, TID WC ??? clonazePAM (KlonoPIN) tablet 0.5 mg, Enteral Tube, BID ??? heparin injection 5,000 Units, Subcutaneous, q8h ??? levothyroxine (SYNTHROID) tablet 112 mcg, Enteral Tube, QDAY AT 0600 ??? melatonin tablet 3 mg, Enteral Tube, QPM ??? pantoprazole (PROTONIX) injection 40 mg, Intravenous, QDAY ??? PARoxetine (PAXIL) tablet 40 mg, Enteral Tube, QDAY ??? senna (SENOKOT) tablet 8.6 mg, Enteral Tube, QDAY ??? traZODone (DESYREL) tablet 50 mg, Enteral Tube, AT BEDTIME ? [COMPLETED] calcium gluconate 4 g in dextrose 5 % 1,040 mL IVPB Bolus, Intravenous, Once ?? CONTINUOUS MEDICATIONS: PRN MEDICATIONS: ??? 0.9% NaCl injection 1-10 mL, Intracatheter, PRN ??? 0.9% NaCl injection 1-10 mL, Intracatheter, PRN ??? ibuprofen (MOTRIN) tablet 400 mg, Enteral Tube, q6h PRN ??? ondansetron (ZOFRAN) injection 4 mg, Intravenous, q6h PRN ??? oxyCODONE (ROXICODONE) oral solution 5 mg, Enteral Tube, q4h PRN ? prochlorperazine (COMPAZINE) injection 10 mg, Intravenous, q6h PRN PHYSICAL EXAM: General: no acute distress, resting comfortably Resp: unlabored breathing on nasal cannula, mild stridor CV: warm and well perfused HEENT: mild crepitus present at the bilateral neck and supraclavicular areas. Bilateral neck incisions intact, sergo secured in place with suture. Neck flexed with pillow behind neck. AGUSTÍN drains x2 in place at bilateral necks, holding bulb suction. 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 PLAN: - Transfer to floor (orders in) - Continue modified consistency diet (per LACE ROLLER OPERATOR recs), may consider d/cing Dobhoff tube if tolerates diet - PRN oxycodone for pain management and suppression of cough reflex - AGUSTÍN drains to bulb suction (low intermittent wall suction if not holding bulb) - neck must stay flexed at all times - f/u Endocrine recommendations: - would monitor total Ca/albumin, if less than 8 redose Iv Ca gluconate - repeat labs in am - Continue Oscal 500-200 1 tab TID - continue calcitriol 0.50??mcg BID - thyroglobulin 192.2 on 08/21/20 - Vit d adequate - continue Levothyroxine 112 mcg and thyroid medication must be 4 hours apart from any Calcium pill Daily Labs: CBC, BMP, Mg, Phos daily, albumin, q6h iCal Other labs- thyroglobulin reflex profile, vitamin D, urine Ca, PTH Bowel Regimen: senokot daily PT/OT, activity: AAT, PT/OT ordered LACE ROLLER OPERATOR: saw 08/23-recommending modified consistency diet VTE Prophy: SCDs, q8h HSQ Endo/thyroid/parathyroid: f/u endo recs as above Drains: AGUSTÍN drains bilateral to bulb (LIS if not holding) Wound care: baci to incisions BID Stitches: bilateral necks, right medial incision opened 08/20 Trach: none SW needs: likely needs HH Dispo: Transfer to Floor Follow up: ENT- to be determined Endocrine- 6 weeks post surgery Fabian Flores MD PGY-3 Otolaryngology - Head and Neck Surgery 08/24/20 7:47 AM PURCHASING * Lashon Barrow, PT - 08/23/2020 3:46 PM CST [facility] Physical Therapy Initial Evaluation Note Patient: Elizabeth Caicedo Med Record Number: [id number] Date of : 1960 Age: [age] year old Co treat with OT Face mask: PT and OT and patient wore mask Tech: no Discharge Recommendation: Patient should be able to return home when medically cleared by physicianteam. Therapy will continue to treat patient while in hospital. See current amount of assist neededbelow. Recommend home health PT In addition to the 1:1 evaluation of the patient, additional eval time was spent completing the chart review prior to the assessment, completing the multidisciplinary plan of care and education plan post evaluation and communicating results of the eval to other treatment team members. Patient currently using Wheeled Walker and has equipment at home. No equipment needs if d/c home. Nurse contacted regarding patient status and/or discharge plan. Physician Orders: Evaluation and Treat PRECAUTIONS: Activity Level as tolerated DIAGNOSIS: Patient Active Problem List: Psychophysiologic insomnia Chronic fatigue Snoring Obsessive-compulsive disorder Headache Primary osteoarthritis of left hip Nicotine dependence High cholesterol Psoriasis Complete paralysis of right vocal cord Hoarseness Tracheal mass Lymphadenopathy of head and neck region Cellulitis Past Medical History: Diagnosis Date ??? Anxiety and depression ??? Degenerative disc disease, lumbar ??? Disorder of thyroid mass on thyroid - right ??? GERD (gastroesophageal reflux disease) ??? High cholesterol ??? HLD (hyperlipidemia) ??? Osteoarthritis of one hip, left ??? Psoriasis ??? Seasonal allergies ??? Snoring ??? SOB (shortness of breath) 2/2 thyroid mass ??? Tracheal mass SUBJECTIVE: Agrees to work with therapy PATIENT GOALS: go home Home living: Type of Residence: (mobile home) Lives with:: Spouse Steps to Enter: 4 Handrails: Outdoor Home Structure: One Story Primary Bedroom: First Floor Primary Bathroom: First Floor Bathroom : Walk in Shower Equipment At Home: Cane-Straight;Walker-4 Wheeled with Seat Prior Function: Mobility: Ambulate-In Home ;With Assistive Device Fallen Within 6 Mos: No Have Help at Home?: Yes, there is help at home now At start of therapy session, patient found in bed and with bed alarm on Pain: Patient has 0/10 pain Follow-up for pain: No follow-up for pain indicated and patient agreed to proceed with treatment OBJECTIVE: General Appearance: Precautions: IV's: Peripheral line, Oxygen and Drains Vitals: (*Assess the 3 levels of oxygen saturations both for room air and 02 unless rest on room air is 88% or less). Rest BP: 142/81 HR: 76 Sp02 Sp02 97% Room Air L O2 Ex/Gait/Activity Without 02 BP: HR: Sp02 Room Air Ex/Gait/Activity With 02 BP: HR: Sp02 L O2 Post Activity BP: HR: Sp02 Sp02 L O2 Room Air Observations: no signs or symptoms of distress MENTAL STATUS: Alert and oriented times 3 DIRECTION FOLLOWING: Able to follow multi-step commands 100% ROM: WNL x 4 STRENGTH: WFL x 4 FUNCTIONAL MOBILITY Not Tested Not Applicable Independent Stand by Assist Minimal Moderate Maximum Dependent Rolling x Scooting x Supine to/from sit x Sit to/from Stand x Bed to/ chair x Observation: BALANCE: Sitting Static: good Dynamic: good Standing Static: good Dynamic: good minus Observation: GAIT: Weight Bearing: no restrictions Distance: 50 feet Device: Wheeled Walker Assistance: Stand By Assist Balance: good minus Steps: NT fair endurance Observation: ACTIVITY TOLERANCE: Patient's activity tolerance: good TREATMENT/INTERVENTIONS: evaluation EDUCATION: While performing PT, Patient was instructed in:Functional mobility training/weight bearing status Patient demonstrated Good understanding of instructions given. Patient not applicable for education due to . INFORMED CONSENT TO TREATMENT: Plan of care including recommended therapy, goals and frequency, discussed with patient who understands and agrees to proceed. ASSESSMENT: Patient would benefit from additional Physical Therapy to achieve the following functional goals toenhance independence. Short Term Goals: Goal Formation With patient Patient will perform bed mobility: Independent Patient will transfer sit to/from stand: Independent Patient will transfer bed to/from chair: Independent Patient will ambulate 75 feet with Independent and appropriate AD Patient will ascend/descend 4 steps: Independent Alf Goal(s): Patient to be independent/baseline with functional mobility and self care and be able to safely discharge to prior level of care Equipment Issued: gait belt Plan: If patient is discharged from the facility, this note serves as a discharge summary if further physical therapy visits did not occur. Following therapy session, patient left in patient bedside chair, with chair alarm on and with calllight within reach PURCHASING * Munira Bates DO - 08/23/2020 2:08 PM CST [facility] Progress note Subjective: Taking in some jello, liquids, going to work with therapy, wants to use her home cane but doesn't have here, denies paraesthesias Objective: Vitals: BP 142/81 Pulse 75 Temp 98.4 ??F (36.9 ??C) (Oral) Resp 15 Ht 5' 1 (1.549 m) Wt 154 lb (69.9 kg) SpO2 97% BMI 29.1 kg/m2 Exam: Gen: sleeping, no distress, drains in place Data: CBC: Recent Labs Component Name 08/22/20 2350 08/21/20 2344 08/20/20 2324 WBC 13.1* 10.3 12.6* RBC 3.91 3.94 4.41 HGB 11.4* 11.4* 12.9 HCT 35.4 35.7 40.2 BMP: Recent Labs Component Name 08/23/20 0428 08/22/20 2350 08/22/20 1105 NA 142 145 145 CL 98 99 99 CO2 32* 35* 33* BUN 7 6* 6* CREATININE 0.5* 0.6 0.5* CALCIUM 7.3* 7.6* 7.5* LFTs: Recent Labs Component Name 08/23/20 0428 08/22/20 1105 03/07/20 1519 AST - - 23 ALT - - 26 ALKPHOS - - 94 TBILI - - 0.5 ALB 2.8* 3.0* 3.8 Magnesium: No results for input(s): MG in the last 18971 hours. 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 Temporary Thyroid cancer, pathology pending Hx tobacco abuse Hx hemoptysis Abnormal MRI brain that needs follow up still (1.Corresponding to the abnormality seen on the recent [...] available). Short interval follow-up with contrast is recommended.) ?? Recommendations: Hypocalcemia post thyroidectomy - would monitor total Ca/albumin, if less than 8 redose Iv Ca gluconate - borderline today and down trending, will reorder 4 gms of Ca gluconate in 1 L D5 over 12 hours, repeat labs in am - Continue Oscal 500-200 1 tab TID - continue calcitriol 0.50 mcg BID - thyroglobulin 192.2 on 08/21/20 - Vit d adequate - continue Levothyroxine 112 mcg and thyroid medication must be 4 hours apart from any Calcium pill - pathology pending still We will make follow up arrangements Munira Bates DO Endocrinology Fellow D/w my attending Dr. Bustamante PURCHASING Associated attestation - Yosi Bustamante MD - 08/23/2020 2:32 PM VP PURCHASING I HAVE SEEN AND EXAMINED THE PATIENT WITH THE ENDOCRINE FELLOW AND I AGREE WITH THE FINDINGS AND PLAN OF CARE DOCUMENTED BY THE ENDOCRINE FELLOW DATE OF SERVICE 08/23/2020 Signed electronically Yosi Bustamante MD Professor of Internal Medicine * Kym Priest OT - 08/23/2020 1:44 PM CST [facility] Occupational Therapy Initial Evaluation Note Patient: Elizabeth Caicedo [facility] Record Number: [id number] Date of : 1960 Age: [age] year old Face Mask: OT wore procedure mask and eye protection throughout session Tech: No Discharge Recommendation: Patient should be able to return home when medically cleared by physicianteam. In addition to the 1:1 evaluation of the patient, additional eval time was spent completing the chart review prior to the assessment, completing the multidisciplinary plan of care and education plan post evaluation and communicating results of the eval to other treatment team members. Plan: ADL training Adaptive equipment training Functional transfer training Bed mobility Safety awareness Physician Orders: Evaluation and Treat Precautions: Fall DIAGNOSIS: Patient Active Problem List: Psychophysiologic insomnia Chronic fatigue Snoring Obsessive-compulsive disorder Headache Primary osteoarthritis of left hip Nicotine dependence High cholesterol Psoriasis Complete paralysis of right vocal cord Hoarseness Tracheal mass Lymphadenopathy of head and neck region Cellulitis Past Medical History: Diagnosis Date ??? Anxiety and depression ??? Degenerative disc disease, lumbar ??? Disorder of thyroid mass on thyroid - right ??? GERD (gastroesophageal reflux disease) ??? High cholesterol ??? HLD (hyperlipidemia) ??? Osteoarthritis of one hip, left ??? Psoriasis ??? Seasonal allergies ??? Snoring ??? SOB (shortness of breath) 2/2 thyroid mass ??? Tracheal mass SUBJECTIVE: Patient reports independence with ADLs and functional mobility with SPC prior to admission. PATIENT GOALS: To return home Home living: Type of Residence: (mobile home) Lives with:: Spouse Steps to Enter: 4 Handrails: Outdoor Home Structure: One Story Primary Bedroom: First Floor Primary Bathroom: First Floor Bathroom : Walk in Shower Equipment At Home: Cane-Straight;Walker-4 Wheeled with Seat Prior Function: Mobility: Ambulate-In Home ;With Assistive Device Fallen Within 6 Mos: No Have Help at Home?: Yes, there is help at home now At start of therapy session, patient found in bed and with no alarm. Pain: Patient has no c/o pain Follow-up for pain: No follow-up for pain indicated and patient agreed to proceed with treatment OBJECTIVE: General Appearance: 60 y/o female, supine in NAD Precautions: IV's: Peripheral line, Oxygen and Drains Edema: None noted Vitals: Rest BP: 142/81 HR: 76 SpO2 97% 2L O2 Ex/Gait/Activity Without 02 BP: HR: SpO2 90% Room Air Post Activity BP: HR: 87 SpO2 92% RA Observations: No s/s observed Cognitive: Alert and oriented x 3, follows 1-step commands 100%. Patient with fair safety awarenessand insight. Perceptual: Intact Upper extremity range of motion: B UE AROM WFL Upper extremity strength: B UE WFL Tone: No abnormal tone noted Coordination: B/L serial opposition intact Sensation: Intact Patient's activity tolerance: fair FUNCTIONAL MOBILITY Not tested Independent Stand by Assist Minimal Moderate Maximum Dependent Rolling x Supine to/from sit x Sit to/from Standing x Bed to/from chair x Patient ambulates functional household distances with SBA and use of w/w Balance: Static Sitting: good Dynamic Sitting: good Static Standing: fair Dynamic Standing: fair Activities of Daily Living Feeding: Independent to drink from straw Grooming/Bathing: not tested Upper Extremity Dressing: not tested Lower Extremity Dressing: Stand By Assist to adjust socks seated EOB Toileting/Transfers: not tested Splint Issued/Checked: none TREATMENT / EDUCATION / EVALUATION: Purpose of Occupational Therapy evaluation explained. While performing mobility and self care, Patient was instructed in: Functional mobility training/weight bearing status, Safety awareness/fall precaution, Discharge plan, Self care training and Use of adaptive equipment Presented to patient who demonstrates Fair understanding of instructions given. INFORMED CONSENT TO TREATMENT: Plan of care including recommended therapy, goals and frequency, as well as potential risks and benefits of treatment/assessment explained to patient. Patient understands and agrees to proceed. ASSESSMENT: Pt continues to benefit from skilled OT to improve independence with activities of daily living, increase strength, endurance, range of motion and decrease pain. Functional performance limited due to: limited activities of daily living, decreased mobility and decreased safety awareness Nurse and PT contacted regarding patient status and/or discharge plan. Short Term Goals: Patient will perform grooming Independently Patient will perform supine to sit Independently Patient will perform sit to stand Independently Patient will perform bed to chair Independently Hoop Bending Machine Operator Goal: Patient to be independent/baseline with functional mobility and self care and be able to safely discharge to prior level of care If patient is discharged from the facility, this note serves as a discharge summary if further occupational therapy visits did not occur. Following therapy session, patient left in patient bedside chair, with call light within reach and with RN, Andria kasper. PURCHASING * Wilian La MD - 08/23/2020 11:20 AM CST Otolaryngology Progress Note 08/23/20 SUBJECTIVE: No acute events overnight. No labored breathing or significant coughing. Sleepy this morning. Denies numbness/tingling of lips/fingers Adjusted iCa 0.95(0.98) VITALS: Temp (30hrs) Max:99.6 ??F (37.6 ??C) Vitals: 08/23/20 0700 08/23/20 0800 08/23/20 0900 08/23/20 1000 BP: 145/80 144/91 158/87 145/86 Pulse: 74 81 75 75 Resp: 14 15 15 16 Temp: 98 ??F (36.7 ??C) SpO2: 96% 95% 95% 97% Weight: Height: Intake/Output Summary (Last 24 hours) at 08/23/2020 1120 Last data filed at 08/23/2020 0800 Gross per 24 hour Intake 680 ml Output 2238 ml Net -1558 ml MEDICATIONS FOR CURRENT ENCOUNTER: SCHEDULED MEDICATIONS: ??? 0.9% NaCl injection 3 mL, Intracatheter, q8h ??? 0.9% NaCl injection 3 mL, Intracatheter, q8h ??? acetaminophen (TYLENOL) tablet 500 mg, Enteral Tube, q6h ??? atorvastatin (LIPITOR) tablet 40 mg, Enteral Tube, AT BEDTIME ??? calcitriol (ROCALTROL) capsule 0.5 mcg, Oral, BID ??? calcium-vitamin D (OS-YANNICK 500 + D) 500-200 mg-unit tablet 1 tablet, Enteral Tube, TID WC ??? clonazePAM (KlonoPIN) tablet 0.5 mg, Enteral Tube, BID ??? heparin injection 5,000 Units, Subcutaneous, q8h ??? levothyroxine (SYNTHROID) tablet 112 mcg, Enteral Tube, QDAY AT 0600 ??? melatonin tablet 3 mg, Enteral Tube, QPM ??? pantoprazole (PROTONIX) injection 40 mg, Intravenous, QDAY ??? PARoxetine (PAXIL) tablet 40 mg, Enteral Tube, QDAY ??? senna (SENOKOT) tablet 8.6 mg, Enteral Tube, QDAY ? traZODone (DESYREL) tablet 50 mg, Enteral Tube, AT BEDTIME ?? CONTINUOUS MEDICATIONS: PRN MEDICATIONS: ??? 0.9% NaCl injection 1-10 mL, Intracatheter, PRN ??? 0.9% NaCl injection 1-10 mL, Intracatheter, PRN ??? ibuprofen (MOTRIN) tablet 400 mg, Enteral Tube, q6h PRN ??? ondansetron (ZOFRAN) injection 4 mg, Intravenous, q6h PRN ??? oxyCODONE (ROXICODONE) oral solution 5 mg, Enteral Tube, q4h PRN ? prochlorperazine (COMPAZINE) injection 10 mg, Intravenous, q6h PRN PHYSICAL EXAM: General: no acute distress, resting comfortably Resp: unlabored breathing on nasal cannula, mild stridor CV: warm and well perfused HEENT: crepitus present but decreased at the bilateral neck and supraclavicular areas, almost completely resolved from the face and periorbital region. Bilateral neck incisions intact, sergo secured in place with suture. Neck flexed with pillow behind neck. AGUSTÍN drains x2 in place at bilateral necks, unable to hold bulb suction- on low intermittent wall suction . 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 PLAN: - Transfer to floor - Start modified consistency diet (per LACE ROLLER OPERATOR recs) - PRN oxycodone for pain management and suppression of cough reflex - AGUSTÍN drains to low intermittent wall suction - nebulized saline TID - neck must stay flexed at all times - f/u endocrine recommendations: synthroid 112mcg QD, Calcitriol 0.5mcg BID, Os- Yannick 500-200 TID (follow-up further endocrine recs today, iCa downtrending) Daily Labs: CBC, BMP, Mg, Phos daily, albumin, q6h iCal Other labs- thyroglobulin reflex profile, vitamin D, urine Ca, PTH Bowel Regimen: senokot daily PT/OT, activity: AAT, PT/OT ordered LACE ROLLER OPERATOR: manjinder 08/23-recommending modified consistency diet VTE Prophy: SCDs, q8h HSQ Endo/thyroid/parathyroid: f/u endo recs as above Drains: AGUSTÍN drains bilateral to LIS Wound care: baci to incisions BID Stitches: bilateral necks, right medial incision opened 08/20 Trach: none SW needs: likely needs Dispo: Floor F/u: ENT- to be determined Endocrine- 6 weeks post surgery Sharif La MD Otolaryngology Head & Neck Surgery PGY-2 08/23/2020 PURCHASING * Myra Ignacio, LACE ROLLER OPERATOR - 08/23/2020 8:50 AM CST [facility] Speech Language Pathology Speech Pathology Swallow Therapy Patient: Elizabeth Caicedo Med Record Number [id number] Date of : 1960 Age: [age] year old Elizabeth Caicedo is seen today at bedside for dysphagia therapy. She reports swallowing is going better. She denies coughing/choking with eating/drinking. Swallowing Therapy Food and/or liquid administered: Water, jello, applesauce and pudding Techniques: Single sips of thin liquid Signs or symptoms of aspiration: Intermittent delayed throat clearing with water Adherence to instruction: 100% IMPRESSION: Ms. Caicedo presents with oropharyngeal??dysphagia secondary to thyroid cancer s/p direct laryngoscopy with biopsy, total thyroidectomy with central neck dissection, bilateral neck dissections, tracheal tumor resection and reanastomosis on 08/19/20. She was previously seen for MBS on 08/07which demonstrated incomplete pharyngeal clearance due to reduced pharyngeal constriction and UES distention.??Airway protection is??complete.??There is shallow penetration during the swallow. No??aspiration is detected in this exam. She demonstrated intermittent delayed throat clearing with thinliquids today. Otherwise, she tolerated all trials without difficulty. I recommend she drink singlesips to reduce risk of aspiration. PLAN: Continue swallow therapy during inpatient stay 1-3x per week. Recommend advancing diet as tolerated. Swallowing strategies: Single sips of thin liquid Careful ANA ROSA precautions: upright during meals and for 30-60 minutes after meals. Oral hygiene at least twice each day- defer oral hygiene recommendations to otolaryngology MDs. If patient is discharged from the facility, this note serves as a discharge note if further speech therapy visits did not occur. Myra Ignacio MA, CCC-LACE ROLLER OPERATOR, B[employer]-S Speech Language Pathologist Department of Otolaryngology- Head and Neck Surgery PURCHASING * Munira Bates DO - 08/22/2020 10:25 AM CST [facility] Endocrinology Progress note Subjective: Sleeping, not present this am when seen, d/w primary team on phone Objective: Vitals: BP 170/86 Pulse 67 Temp 98.9 ??F (37.2 ??C) (Oral) Resp 9 Ht 5' 1 (1.549 m) Wt 154 lb (69.9 kg) SpO2 93% BMI 29.1 kg/m2 Exam: Gen: sleeping, no distress, drains in place Data: CBC: Recent Labs Component Name 08/21/20 2344 08/20/20 2324 08/19/20 2348 WBC 10.3 12.6* 15.3* RBC 3.94 4.41 4.82 HGB 11.4* 12.9 14.3 HCT 35.7 40.2 43.7 BMP: Recent Labs Component Name 08/21/20 2344 08/20/20 2324 08/19/20 2348 NA 144 136 137 CL 101 98 103 CO2 34* 30* 24 BUN 5* 7 10 CREATININE 0.6 0.7 0.7 CALCIUM 8.2* 8.2* 7.7* LFTs: Recent Labs Component Name 03/07/20 1519 AST 23 ALT 26 ALKPHOS 94 TBILI 0.5 ALB 3.8 Magnesium: No results for input(s): MG in the last 52269 hours. 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 Temporary Thyroid cancer, pathology pending Hx tobacco abuse Hx hemoptysis Abnormal MRI brain that needs follow up still (1.Corresponding to the abnormality seen on the recent [...] available). Short interval follow-up with contrast is recommended.) ?? Recommendations: Hypocalcemia post thyroidectomy - RFP ordered for today - if total Ca corrected for albumin greater than 8 will hold on further IV calcium gluconate today - Continue Oscal 500-200 1 tab TID - continue calcitriol 0.50 mcg BID - thyroglobulin reflex panel in process - Vit d adequate - continue Levothyroxine 112 mcg and thyroid medication must be 4 hours apart from any Calcium pill - pathology pending still We will make follow up arrangements Munira Bates DO Endocrinology Fellow D/w my attending Dr. Bustamante PURCHASING Associated attestation - Yosi Bustamante MD - 08/22/2020 11:00 AM VP PURCHASING I HAVE SEEN AND EXAMINED THE PATIENT WITH THE ENDOCRINE FELLOW AND I AGREE WITH THE FINDINGS AND PLAN OF CARE DOCUMENTED BY THE ENDOCRINE FELLOW DATE OF SERVICE 08/22/2020 Signed electronically Yosi Bustamante MD Professor of Internal Medicine * Beatriz Aguero RN - 08/22/2020 10:01 AM CST A Chart Review has been conducted by Case Management. Insurance: [facility]- Anticipated level of care at discharge: Unknown Anticipate Home with Home Care Pending Therapy evaluations when appropriate per ENT. Discharge Plan: Anticipate Home with Home Care Basic Needs Assessment (BNA) Score: 7 PCP: Taniya Grimes MD ; Pager: [phone]; Per nursing assessments: 08/19/20 admit 60 year old female with a thyroid mass with tracheal involvement who presents for scheduled procedures. 07/25: re- demonstration of??paratracheal mass on CT PE atOSH of 2.8 x 2.6cm??with interval development of dysphagia and hoarseness. On 08/19/20 S/P direct laryngoscopy with biopsy, total thyroidectomy with central neck dissection, bilateral neck dissections, tracheal tumor resection and reanastomosis. 08/20/20 Post op Day 1 Right medial incision opened at bedside this AM about 1cm to allow egress of air accumulation. Today, Bilateral neck incisions intact, sergo secured in place with suture. Neck flexed with pillow behind neck. AGUSTÍN drains x2 in place at bilateral necks, unable to hold bulb suction- on low intermittent wall suction. Plan to start clear liquids today. PMH: Lumbar disc disease, osteoarthritis, mood disorder, HLD, and thyroid mass with tracheal involvement. Transportation ([facility]): Pending DC disposition [facility][1] Cash Accountant/Support: Boogie Caicedo Spouse Home/Functional Status: Functional and Cognitive Status Is person deaf or have serious hearing difficulty?: No Is person blind or have serious difficulty seeing?: No Does person have serious difficulty walking/climbing stairs?: No Does person have difficulty dressing/bathing?: No Does person have difficulty doing errands alone?: No Does person have difficulty concentrating/remembering/making decisions?: No Equipment with patient: None Assistive Devices: Cane Will continue to follow. For any questions or needs please contact: [employer] Name/Phone number: Beatriz Aguero RN., ICU x [phone] PURCHASING * Myra Ignacio, LACE ROLLER OPERATOR - 08/22/2020 9:41 AM CST [facility] Physical Medicine and Rehabilitation Speech Therapy Bedside Swallow Evaluation Patient: Elizabeth Caicedo [facility] Record Number: [id number] Date of : 1960 Age: [age] year old Patient Active Problem List: Psychophysiologic insomnia Chronic fatigue Snoring Obsessive-compulsive disorder Headache Primary osteoarthritis of left hip Nicotine dependence High cholesterol Psoriasis Complete paralysis of right vocal cord Hoarseness Tracheal mass Lymphadenopathy of head and neck region Cellulitis Past Medical History: Diagnosis Date ??? Anxiety and depression ??? Degenerative disc disease, lumbar ??? Disorder of thyroid mass on thyroid - right ??? GERD (gastroesophageal reflux disease) ??? High cholesterol ??? HLD (hyperlipidemia) ??? Osteoarthritis of one hip, left ??? Psoriasis ??? Seasonal allergies ??? Snoring ??? SOB (shortness of breath) 2/2 thyroid mass ??? Tracheal mass Swallow Recommendations Unable to make recommendations at this time due to limited evaluation. Recommend small sips at slow rate to reduce risk of aspiration. Discharge Recommendations: Follow up as an outpatient. Current Diet: DIET CLEAR LIQUID REASON FOR REFERRAL: Elizabeth Caicedo is a 60 year old old female who has been referred today for aclinical swallowing evaluation s/p direct laryngoscopy with biopsy, total thyroidectomy with central neck dissection, bilateral neck dissections, tracheal tumor resection and reanastomosis on 08/19/20. She reports swallowing is about the same post-surgically. She has been coughing with liquids. She is currently on full liquid diet. Pain: Patient did not report pain. Past Medical History: Pulmonary status: 2L via nasal cannula Pulmonary history: Tracheal resection Neurological history: None reported Esophageal history: None reported Systemic/metabolic history: None reported Oral Motor Clinical Assessment: Mental Status: Decreased alertness due to fatigue Breathing Status: Oxygen via nasal cannula Head & Neck ROM: WNL Face (CN VII): Symmetrical at rest. WNL for ROM. Jaw (CN V): WNL for strength and ROM. Lips (CN VII): WNL for strength and ROM. Tongue (XII): Midline upon protrusion. WNL for strength and ROM. Palate (CN IX, X) is bilaterally symmetric and mobile Resonance (CN IX) is normal Vocal quality (CN X) is weak Pitch/Volume: Elevated for pitch MPT: 7 seconds. Intelligibility: Judged as 100% intelligible for age and gender. Dentition: Full and in good condition with good chewing surfaces. Oral dryness: None Trial Swallows: Patient was difficult to arose, however once alert she was given two trials of ice chips. On one trial, she demonstrated immediate coughing. She drank multiple successive sips from straw and demonstrated delayed coughing. She was unable to stay awake for additional assessment, despite several attempts to awaken patient. ASSESSMENT: Swallow: Oropharyngeal dysphagia Behavior: Lethargic Cognitive-Communication: WFL with no further need for assessment. Speech/Language: WFL with no further need for assessment. IMPRESSIONS: Elizbaeth Caicedo presents with oropharyngeal dysphagia secondary to thyroid cancer s/pdirect laryngoscopy with biopsy, total thyroidectomy with central neck dissection, bilateral neck dissections, tracheal tumor resection and reanastomosis on 08/19/20. She was previously seen for MBS on 08/07 which demonstrated incomplete pharyngeal clearance due to reduced pharyngeal constriction andUES distention. Airway protection is complete. There is shallow penetration during the swallow. No aspiration is detected in this exam. Unfortunately, she was unable to participate in this exam today. I am unable to make diet recommendations at this time. Should she continue on clear liquid diet, as order by team, I recommend small sips at slow rate to reduce risk of aspiration. Treatment: Evaluation Instruction in and use of strategies and swallow guidelines completed. Education: Patient, Nurse and Physician instructed in recommendations and indicated understanding. Informed consent to treatment: Plan of care including recommended therapy, goals, and frequency, aswell as potential risks and benefits of treatment/assessment explained to patient. Patient understands and agrees to proceed. Short Term Goals Patient to demonstrate no clinical signs/symptoms of aspiration or difficulty swallowing with recommended diet. Patient to demonstrate understanding of swallow guidelines and strategies. Hoop Bending Machine Operator Goal (s): Patient to be independent/baseline with functional mobility and self care and be able to safely discharge to prior level of care. PLAN: Speech therapy is recommended to improve swallow function. Unable to make recommendations today. I will return tomorrow to reassess. If continuing on ordered diet, recommend small sips at slow rate to reduce risk of aspiration. Careful ANA ROSA precautions Oral hygiene at least twice each day Myra Ignacio MA, CCC-LACE ROLLER OPERATOR, [facility] Speech Language Pathologist Department of Otolaryngology- Head and Neck Surgery PURCHASING * Wilian La MD - 08/22/2020 7:24 AM CST Otolaryngology Progress Note 08/22/20 SUBJECTIVE: No acute events overnight. Breathing a bit more comfortably this morning. Coughing less Adjusted iCa 1.08(1.15) WBC 10.3 (12.6), Hgb 11.4 (12.9) VITALS: Temp (30hrs) Max:99.1 ??F (37.3 ??C) Vitals: 08/22/20 0100 08/22/20 0200 08/22/20 0300 08/22/20 0400 BP: 139/74 136/68 114/65 127/74 Pulse: 87 86 82 77 Resp: 13 13 13 Temp: 98.6 ??F (37 ??C) 98.7 ??F (37.1 ??C) SpO2: 93% 94% 95% 99% Weight: Height: Intake/Output Summary (Last 24 hours) at 08/22/2020 0724 Last data filed at 08/22/2020 0400 Gross per 24 hour Intake 1700.55 ml Output 2659 ml Net -958.45 ml MEDICATIONS FOR CURRENT ENCOUNTER: SCHEDULED MEDICATIONS: ??? 0.9% NaCl injection 3 mL, Intracatheter, q8h ??? 0.9% NaCl injection 3 mL, Intracatheter, q8h ??? acetaminophen (TYLENOL) tablet 500 mg, Enteral Tube, q6h ??? atorvastatin (LIPITOR) tablet 40 mg, Enteral Tube, AT BEDTIME ??? calcitriol (ROCALTROL) capsule 0.5 mcg, Oral, BID ??? calcium-vitamin D (OS-YANNICK 500 + D) 500-200 mg-unit tablet 1 tablet, Enteral Tube, TID WC ??? clonazePAM (KlonoPIN) tablet 0.5 mg, Enteral Tube, BID ??? heparin injection 5,000 Units, Subcutaneous, q8h ??? levothyroxine (SYNTHROID) tablet 112 mcg, Enteral Tube, QDAY AT 0600 ??? magnesium sulfate 2 g in 50 mL bolus, Intravenous, Once ??? melatonin tablet 3 mg, Enteral Tube, QPM ??? oxyCODONE (ROXICODONE) oral solution 7.5 mg, Enteral Tube, q4h ??? pantoprazole (PROTONIX) injection 40 mg, Intravenous, QDAY ??? PARoxetine (PAXIL) tablet 40 mg, Enteral Tube, QDAY ??? senna (SENOKOT) tablet 8.6 mg, Enteral Tube, QDAY ??? traZODone (DESYREL) tablet 50 mg, Enteral Tube, AT BEDTIME ? [COMPLETED] calcium gluconate 4 g in dextrose 5 % 1,040 mL IVPB Bolus, Intravenous, Once CONTINUOUS MEDICATIONS: ? dextrose 5% and 0.45% NaCl with KCl 20 mEq infusion, Intravenous, Continuous PRN MEDICATIONS: ??? 0.9% NaCl injection 1-10 mL, Intracatheter, PRN ??? 0.9% NaCl injection 1-10 mL, Intracatheter, PRN ??? atropine injection 0.4 mg, Intravenous, Once PRN ??? diphenhydrAMINE (BENADRYL) injection 25 mg, Intravenous, Once PRN ??? fentaNYL (PF) (SUBLIMAZE) injection 25 mcg, Intravenous, q10 min PRN ??? HYDROmorphone (DILAUDID) injection 0.5 mg, Intravenous, q10 min PRN ??? ibuprofen (MOTRIN) tablet 400 mg, Enteral Tube, q6h PRN ??? ondansetron (ZOFRAN) injection 4 mg, Intravenous, q6h PRN ??? prochlorperazine (COMPAZINE) injection 10 mg, Intravenous, Once PRN ? prochlorperazine (COMPAZINE) injection 10 mg, Intravenous, q6h PRN PHYSICAL EXAM: General: no acute distress, resting comfortably Resp: unlabored breathing on nasal cannula, mild stridor CV: warm and well perfused HEENT: crepitus present but decreased at the bilateral neck and supraclavicular areas, almost completely resolved from the face and periorbital region. Bilateral neck incisions intact, sergo secured in place with suture. Neck flexed with pillow behind neck. AGUSTÍN drains x2 in place at bilateral necks, unable to hold bulb suction- on low intermittent wall suction . 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 PLAN: - Start clear liquid diet - scheduled oxycodone for pain management and suppression of cough reflex - AGUSTÍN drains to low intermittent wall suction - nebulized saline TID - neck must stay flexed at all times - f/u endocrine recommendations: synthroid 112mcg QD, Calcitriol 0.5mcg BID, Calcium carbonate 500 TID with food, Vit. 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 VTE Prophy: SCDs, q8h HSQ Endo/thyroid/parathyroid: f/u endo recs as above Drains: AGUSTÍN drains bilateral to LIS Wound care: baci to incisions BID Stitches: bilateral necks, right medial incision opened 08/20 Trach: none SW needs: likely needs HH Dispo: 3ICU F/u: ENT- to be determined Endocrine- 6 weeks post surgery Sharif La MD Otolaryngology Head & Neck Surgery PGY-2 08/22/2020 PURCHASING * Munira Bates, DO - 08/21/2020 4:27 PM CST [facility] Progress note Subjective: Trying to eat some slush with assistance from when seen this afternoon Objective: Vitals: BP 166/96 Pulse 73 Temp 98 ??F (36.7 ??C) (Oral) Resp 19 Ht 5' 1 (1.549 m) Wt 154 lb (69.9 kg) SpO2 96% BMI 29.1 kg/m2 Exam: Gen: Awake, NAD, 2 drains, sx site intact Data: CBC: Recent Labs Component Name 08/20/20232308/19/20234708/01/20 1627 WBC 12.6* 15.3* 9.0 RBC 4.41 4.82 4.91 HGB 12.9 14.3 14.2 HCT 40.2 43.7 43.5 BMP: Recent Labs Component Name 08/20/20232308/19/20234708/01/20 1627 NA 136 137 141 CL 98 103 100 CO2 30* 24 32* BUN 7 10 12 CREATININE 0.7 0.7 0.8 CALCIUM 8.2* 7.7* 9.4 LFTs: Recent Labs Component Name 03/07/20 1519 AST 23 ALT 26 ALKPHOS 94 TBILI 0.5 ALB 3.8 Magnesium: No results for input(s): MG in the last 92856 hours. Phosphorus: Recent Labs Component Name 08/20/20232308/19/202347 PHOS 4.5 6.5* Thyroid studies: Assessment: Hypocalcemia post thyroidectomy Postoperative hypothyroidism Postoperative hypoparathyroidism, ? Temporary Thyroid cancer, pathology pending Hx tobacco abuse Hx hemoptysis Abnormal MRI brain that needs follow up still (1.Corresponding to the abnormality seen on the recent [...] available). Short interval follow-up with contrast is recommended.) ?? Recommendations: Hypocalcemia post thyroidectomy - monitor ionized calcium every 6 hrs. Check Mg and Phos levels if not done so. Keep Mg > 2 as hypomagnesia is associated with PTH resistence - Oscal 500-200 1 tab TID - Start calcitriol 0.50 mcg daily - give 4 amps of Ca gluconate in 1 L over 12 hours again today - ordered again - Check Ionized calcium Q6H - thyroglobulin reflex panel in process Vit d adequate continue Levothyroxine 112 mcg and thyroid medication must be 4 hours apart from any Calcium pill We will make follow up arrangements Munira Bates, DO Endocrinology PURCHASING Associated attestation - Yosi Bustamante MD - 08/21/2020 8:05 PM VP PURCHASING I HAVE SEEN AND EXAMINED THE PATIENT WITH THE ENDOCRINE FELLOW AND I AGREE WITH THE FINDINGS AND PLAN OF CARE DOCUMENTED BY THE ENDOCRINE FELLOW DATE OF SERVICE 08/21/2020 Signed electronically Yosi Bustamante MD Professor of Internal Medicine CC HYPOTHYROIDISM HYPOCALCEMIA S/P THYROIDECTOMY SUSPECTED THYROID CANCER ( BASED ON FNA BIOPSY ) S 60 YEAR OLD WHITE FEMALE NO PAIN TRYING TO EAT TODAY FEEDING PATIENT DYSPHONIA ( +) NO PARESTHESIAS LAB Results for MARIFERELIZABETH MADDEN ( ) as of 08/21/2020 19:51 Ref. Range 03/07/2020 15:19 08/20/2020 05:08 Hemoglobin A1c Latest Ref Range: 4.4 - 6.3 % 5.5 Estimated Average Glucose Latest Units: mg/dL 111 PTH Intact Latest Ref Range: 8.0 - 77.0 pg/mL <4.0 (L) TSH Latest Ref Range: 0.350 - 4.940 uIU/mL 1.520 Results for MARIFER, ELIZABETH R ( ) as of 08/21/2020 19:51 Ref. Range 08/20/2020 23:04 08/20/2020 23:24 08/21/2020 04:25 08/21/2020 11:07 08/21/2020 12:01 08/21/2020 17:34 Sodium Latest Ref Range: 136 - 145 mmol/L 136 Potassium Latest Ref Range: 3.5 - 4.5 mmol/L 3.7 Chloride Latest Ref Range: 98 - 107 mmol/L 98 CO2 Latest Ref Range: 22 - 29 mmol/L 30 (H) Anion Gap Latest Ref Range: 8 - 18 12 BUN Latest Ref Range: 7 - 26 mg/dL 7 Creatinine Latest Ref Range: 0.6 - 1.2 mg/dL 0.7 eGFR Latest Ref Range: >60 mL/min/1.73 m2 >60 Glucose Latest Ref Range: 70 - 115 mg/dL 133 (H) Calcium Latest Ref Range: 8.4 - 10.2 mg/dL 8.2 (L) Ionized Calcium Whole Blood Latest Units: mmol/L 1.18 1.14 1.09 1.08 Adjusted Ionized Calcium Latest Ref Range: 1.19 - 1.34 mmol/L 1.16 (L) 1.12 (L) 1.08 (L) 1.06 (L) Magnesium Latest Ref Range: 1.6 - 2.6 mg/dL 1.5 (L) 1.7 Phosphorus Latest Ref Range: 2.3 - 4.7 mg/dL 4.5 BUN/Creatinine Ratio Latest Ref Range: 7 - 23 10 pH Whole Blood Latest Ref Range: 7.35 - 7.45 7.37 7.37 7.39 7.36 Osmolality Calculated Latest Ref Range: 270 - 300 mOsm/kg 282 Vitamin D, 25 Hydroxy Latest Ref Range: See comment: ng/mL 32.0 07/24/2020 CT IMPRESSION: 1. A mildly enlarged left level 3 lymph node measuring 1.4 x 2.2 cm. This is indeterminant but can be malignant. 2. A 2.8 x 2.0 cm hypoattenuating nodule in the right lobe of the thyroid gland. It causes mass effect on the right posterior aspect of the upper trachea. These nodule has previously been biopsied with a sonogram guided thyroid fine needle aspiration. However, this may have increased in size. Given the presence of an enlarged cervical lymph node, thyroid sonogram evaluation with possible rebiopsy is recommended to exclude malignancy. 3. Incidental note of a 1 cm-year-old defined enhancing lesion in the posterior right putamen without mass effect. Recommend a dedicated brain MRI without and with contrast to further evaluate. This report was electronically signed by JOSE E WAN M.D. on 07/24/2020 3:16 PM . 08/17/2020 MRI IMPRESSION: 1.Corresponding to the abnormality seen on [...] 3/4 cervical lymph node. I, Dr. CHANTELL ROSALES have personally reviewed and interpreted this examination/study. This report was electronically signed by CHANTELL ROSALES on 08/19/2020 11:14 AM . ASSESSMENT SUSPECTED THYROID CANCER PATHOLOGY PENDING HYPOTHYROIDISM S/P THYROIDECTOMY BRAIN LESION HYPOCALCEMIA PLAN CONTINUE LEVOTHYROXINE 112 MCG DAILY Instructions for taking levothyroxine Brand name is preferred OR SAME SOURCE Take thyroid pill all by itself Take thyroid pill one hour before food or 2 to 3 hours after food Heat, humidity, and direct sunlight will cause a loss of potency Never store thyroid pill in the bathroom LAB IN SIX WEEKS TSH AND QUANTITATIVE THYROGLOBULIN CALCITRIOL 0.50 MCG EVERY 12 HOURS CA-CO3 500 MG TID WITH FOOD VITAMIN D 2000 UNITS DAILY MONITOR CALCIUM, PHOSPHORUS, PTH, URINE CALCIUM, ALBUMIN Yosi Bustamante MD Professor of Internal Medicine Division of Endocrinology Department of Internal Medicine * Isa Jimenez MD - 08/21/2020 11:58 AM CST Otolaryngology Progress Note 08/21/20 SUBJECTIVE: No acute events overnight. Patient feels about the same this morning, not sure if her breathing is any worse this morning. States she feels hungry and thirsty. Coughing brown secretions up, but not coughing as frequently VITALS: Temp (30hrs) Max:99.4 ??F (37.4 ??C) Vitals: 08/21/20 0800 08/21/20 0900 08/21/20 1000 08/21/20 1100 BP: 164/75 145/94 117/77 117/77 Pulse: 82 79 87 77 Resp: 10 14 15 14 Temp: 98.8 ??F (37.1 ??C) SpO2: 94% 95% 96% 96% Weight: Height: Intake/Output Summary (Last 24 hours) at 08/21/2020 1159 Last data filed at 08/21/2020 0800 Gross per 24 hour Intake 3084.59 ml Output 2546 ml Net 538.59 ml MEDICATIONS FOR CURRENT ENCOUNTER: SCHEDULED MEDICATIONS: ??? 0.9% NaCl injection 3 mL, Intracatheter, q8h ??? 0.9% NaCl injection 3 mL, Intracatheter, q8h ??? acetaminophen (TYLENOL) tablet 500 mg, Enteral Tube, q6h ??? atorvastatin (LIPITOR) tablet 40 mg, Enteral Tube, AT BEDTIME ??? calcitriol (ROCALTROL) capsule 0.5 mcg, Oral, BID ??? calcium gluconate 4 g in dextrose 5 % 1,040 mL IVPB Bolus, Intravenous, Once ??? calcium-vitamin D (OS-YANNICK 500 + D) 500-200 mg-unit tablet 1 tablet, Enteral Tube, TID WC ??? clonazePAM (KlonoPIN) tablet 0.5 mg, Enteral Tube, BID ??? heparin injection 5,000 Units, Subcutaneous, q8h ??? levothyroxine (SYNTHROID) tablet 112 mcg, Enteral Tube, QDAY AT 0600 ??? melatonin tablet 3 mg, Enteral Tube, QPM ??? oxyCODONE (ROXICODONE) oral solution 7.5 mg, Enteral Tube, q4h ??? pantoprazole (PROTONIX) injection 40 mg, Intravenous, QDAY ??? PARoxetine (PAXIL) tablet 40 mg, Enteral Tube, QDAY ??? senna (SENOKOT) tablet 8.6 mg, Enteral Tube, QDAY ??? traZODone (DESYREL) tablet 50 mg, Enteral Tube, AT BEDTIME ??? [COMPLETED] calcium gluconate 4 g in dextrose 5 % 1,040 mL IVPB Bolus, Intravenous, Once ??? [COMPLETED] magnesium sulfate 2 g in 50 mL bolus, Intravenous, Once ? [] vitamin D (ergocalciferol) (DRISDOL) 1.25 MG (61377 UT) capsule 50,000 Units, Oral, Once CONTINUOUS MEDICATIONS: ? dextrose 5% and 0.45% NaCl with KCl 20 mEq infusion, Intravenous, Continuous PRN MEDICATIONS: ??? 0.9% NaCl injection 1-10 mL, Intracatheter, PRN ??? 0.9% NaCl injection 1-10 mL, Intracatheter, PRN ??? atropine injection 0.4 mg, Intravenous, Once PRN ??? diphenhydrAMINE (BENADRYL) injection 25 mg, Intravenous, Once PRN ??? fentaNYL (PF) (SUBLIMAZE) injection 25 mcg, Intravenous, q10 min PRN ??? HYDROmorphone (DILAUDID) injection 0.5 mg, Intravenous, q10 min PRN ??? ondansetron (ZOFRAN) injection 4 mg, Intravenous, q6h PRN ??? prochlorperazine (COMPAZINE) injection 10 mg, Intravenous, Once PRN ? prochlorperazine (COMPAZINE) injection 10 mg, Intravenous, q6h PRN PHYSICAL EXAM: General: no acute distress, resting comfortably Resp: unlabored breathing on nasal cannula, mild stridor CV: warm and well perfused HEENT: crepitus present but decreased at the bilateral neck and supraclavicular areas, almost completely resolved from the face and periorbital region. Bilateral neck incisions intact, sergo secured in place with suture. Neck flexed with pillow behind neck. AGUSTÍN drains x2 in place at bilateral necks, unable to hold bulb suction- on low intermittent wall suction . 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 PLAN: - Start clear liquid diet - scheduled oxycodone for pain management and suppression of cough reflex - AGUSTÍN drains to low intermittent wall suction - nebulized saline TID - neck must stay flexed at all times - f/u endocrine recommendations: synthroid 112mcg, Calcitriol 50mcg qday, Calcium carbonate 500 qidwith food, IV calcium until serum calcium optimal (4amps ca gluconate in 1000 mL D5 W infused over 12 hours), Vit. 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 She feels that there is something stuck in her throat that she can't get out. Reports pain around the incision sites. Feels like she can breathe okay with mouth open but not well through her nose. VITALS: Temp (30hrs) Max:100.3 ??F (37.9 ??C) Vitals: 08/20/20 0400 08/20/20 0500 08/20/20 0600 08/20/20 0700 BP: 135/76 147/74 122/72 127/75 Pulse: 75 75 72 77 Resp: 15 11 14 12 Temp: 97.7 ??F (36.5 ??C) SpO2: 96% 95% 94% 95% Weight: Height: Intake/Output Summary (Last 24 hours) at 08/20/2020 0809 Last data filed at 08/20/2020 0600 Gross per 24 hour Intake 4965.13 ml Output 4007 ml Net 958.13 ml MEDICATIONS FOR CURRENT ENCOUNTER: ?? SCHEDULED MEDICATIONS: ? 0.9% NaCl injection 3 mL, Intracatheter, q8h ? 0.9% NaCl injection 3 mL, Intracatheter, q8h ? acetaminophen (TYLENOL) tablet 500 mg, Enteral Tube, q6h ? atorvastatin (LIPITOR) tablet 40 mg, Oral, AT BEDTIME ? calcium carbonate (500mg Ca /5 mL) suspension, Oral, TID ? clonazePAM (KlonoPIN) tablet 0.5 mg, Oral, BID ? fentaNYL (PF) (SUBLIMAZE) injection 50 mcg, Intravenous, Once ? oxyCODONE (immediate release) (ROXICODONE) tablet 7.5 mg, Enteral Tube, q4h ? pantoprazole EC (PROTONIX) tablet 40 mg, Oral, QDAY ? PARoxetine (PAXIL) tablet 40 mg, Oral, QDAY ? sodium chloride (Inhalant) 7 % nebulizer solution 4 mL, Inhalation, TID ? traZODone (DESYREL) tablet 50 mg, Oral, AT BEDTIME ? [COMPLETED] calcium gluconate 2 g in 100 mL NaCl 0.675%, Intravenous, Once ?? CONTINUOUS MEDICATIONS: ? dextrose 5% and 0.45% NaCl with KCl 20 mEq infusion, Intravenous, Continuous ?? PRN MEDICATIONS: ? 0.9% NaCl injection 1-10 mL, Intracatheter, PRN ? 0.9% NaCl injection 1-10 mL, Intracatheter, PRN ? acetaminophen (TYLENOL) tablet 1,000 mg, Oral, Once PRN ? atropine injection 0.4 mg, Intravenous, Once PRN ? diphenhydrAMINE (BENADRYL) injection 25 mg, Intravenous, Once PRN ? fentaNYL (PF) (SUBLIMAZE) injection 25 mcg, Intravenous, q10 min PRN ? HYDROmorphone (DILAUDID) injection 0.5 mg, Intravenous, q10 min PRN ? ondansetron (ZOFRAN) injection 4 mg, Intravenous, q6h PRN ? prochlorperazine (COMPAZINE) injection 10 mg, Intravenous, Once PRN ? prochlorperazine (COMPAZINE) injection 10 mg, Intravenous, q6h PRN PHYSICAL EXAM: General: no acute distress, resting comfortably Resp: unlabored breathing on nasal cannula CV: warm and well perfused HEENT: significant crepitus at the bilateral neck and supraclavicular areas as well as diffusely inthe facial tissues and periorbital regions. Bilateral neck incisions intact, sergo secured in place with suture. Neck flexed with pillow behind neck. AGUSTÍN drains x2 in place at bilateral necks, unable to hold bulb suction. 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: TBD VTE Prophy: SCDs, q8h HSQ Endo/thyroid/parathyroid: will consult Endocrine regarding calcium levels, thyroid replacement, appreciate recs Drains: AGUSTÍN drains bilateral to LIS Wound care: baci to incisions BID Stitches: bilateral necks, right medial incision opened at bedside today Trach: none SW needs: likely needs HH Dispo: 3ICU Fabian Flores MD PGY-3 Otolaryngology - Head and Neck Surgery 08/20/20 8:27 AM PURCHASING * Mariah King RN - 08/20/2020 4:57 AM CST Ongoing PURCHASING documented in this encounter H&P Notes * Isa Jimenez MD - 08/19/2020 6:58 AM CST Otolaryngology Pre-Procedure History and Physical DATE: 08/19/2020 TIME: 6:58 AM PROCEDURE: total thyroid, b/l neck dissection, tracheal resection Chief Complaint (CC): thyroid mass HISTORY OF PRESENT ILLNESS (HPI): Elizabeth Caicedo is a 60 year old female with a history of lumbar disc disease, osteoarthritis, mood disorder, HLD, and thyroid mass with tracheal involvement who presents for scheduled procedures. No significant changes in health, medications, or allergies since last visit to clinic. COVID-19 negative on 08/15/20. Treatment History: 03/24: biopsied thyroid nodule measuring 1.8 x 1.5 x 1.3cm, reportedly negative per patient 07/25: re-demonstration of paratracheal mass on CT PE at OSH of 2.8 x 2.6cm with interval development of dysphagia and hoarseness PAST MEDICAL HISTORY (PMH): Major Medical Past Medical History: Diagnosis Date ??? Anxiety and depression ??? Degenerative disc disease, lumbar ??? Disorder of thyroid mass on thyroid - right ??? GERD (gastroesophageal reflux disease) ??? High cholesterol ??? HLD (hyperlipidemia) ??? Osteoarthritis of one hip, left ??? Psoriasis ??? Seasonal allergies ??? Snoring ??? SOB (shortness of breath) 2/2 thyroid mass ??? Tracheal mass Surgical Past Surgical History: Procedure Laterality Date ??? Bilateral Tubal Ligation (BTL) ??? Section ??? ENDOSCOPY, COLON, DIAGNOSTIC no polyp ??? Polypectomy cervical Family Family History Problem Relation Name Age of [...] Alive ??? None Known Sister Status: Alive Social History Tobacco Use ??? Smoking status: Light Tobacco Smoker Packs/day: 0.25 Years: 40.00 Pack years: 10.00 Types: Cigarettes Start date: 07/22/1973 ??? Smokeless tobacco: Never Used ??? Tobacco comment: 1 cig a day Substance Use Topics ??? Alcohol use: No MEDICATIONS Current Facility-Administered Medications Medication Dose Route Frequency Provider Last Rate Last Admin ??? 0.9% NaCl infusion rate and volume 250 mL Intravenous Once PRN Isa Jimenez MD ??? 0.9% NaCl injection 3 mL 3 mL Intracatheter q8h Isa Jimenez MD And ??? 0.9% NaCl injection 1-10 mL 1-10 mL Intracatheter PRN Isa Jimenez MD Current Outpatient Medications Medication Sig Dispense Refill ??? Acetaminophen (TYLENOL 8 HOUR ARTHRITIS PAIN PO) Take by mouth as needed ??? albuterol HFA (PROVENTIL;VENTOLIN;PROAIR) 108 (90 Base) MCG/ACT inhaler Inhale 2 puffs by mouthevery 4 hours as needed ??? atorvastatin (LIPITOR) 40 MG tablet Take 1 tablet by mouth at bedtime 30 tablet 11 ??? B Complex Vitamins (VITAMIN B COMPLEX) tablet Take by mouth DAILY. ??? fodjsiv-crclovcou-hfbz 333-133-5 MG tablet Take 1 tablet by mouth 3 times daily ??? cetirizine (ZYRTEC) 10 MG tablet TAKE 1 TABLET BY MOUTH EVERY DAY 30 tablet 5 ??? clobetasol (TEMOVATE) 0.05 % ointment Apply to affected area 2 times daily 60 g 0 ??? clonazePAM (KLONOPIN) 0.5 MG tablet Take 0.5 mg by mouth 2 times daily ??? famotidine (PEPCID) 20 MG tablet Take 20 mg by mouth 2 times daily as needed ??? fluticasone propionate (FLONASE) 50 MCG/ACT nasal spray [place] 2 sprays into each nostril 16 g 0 ??? gabapentin (NEURONTIN) 300 MG capsule TAKE 1 CAPSULE BY MOUTH THREE TIMES A DAY (Patient takingdifferently: Take 300 mg by mouth 3 times daily ) 90 capsule 5 ??? QXTJST-[id number]-PBS-C-HYAL PO Take 1 tablet by mouth 3 times daily ??? meloxicam (MOBIC) 7.5 MG tablet TAKE 1 TABLET BY MOUTH EVERY DAY 60 tablet 2 ??? [place]-3 Fatty Acids (FISH OIL) 1000 MG capsule Take 1,000 mg by mouth 3 times daily with meals. ??? pantoprazole EC (PROTONIX) 40 MG tablet Take 1 tablet by mouth once daily 30 tablet 5 ??? PARoxetine (PAXIL) 40 MG tablet (Patient taking differently: Take 40 mg by mouth once daily ) 2 ??? traZODone (DESYREL) 50 MG tablet Take 50 mg by mouth at bedtime ??? vitamin E (TOCOPHERYL) 400 UNIT capsule Take 400 Units by mouth TID. REVIEW OF SYSTEMS 11 point review of systems was obtained and is negative except for as noted in the HPI and per medical sales consultant notes PHYSICAL EXAM BP 138/75 Pulse 58 Temp 97.2 ??F (36.2 ??C) (Temporal) Resp 19 Ht 5' 1 (1.549 m) Wt 154 lb (69.9 kg) SpO2 98% BMI 29.1 kg/m2 General: NAD, alert HEENT: Eyes: EOMI Ears: normal shape and position of pinnae Nose: nares patent Oral Cavity, Oropharynx: moist mucosa Dental: normal for age Laryngopharynx by mirror: deferred Neck: palpable neck disease and left level V, R level III Cardiovascular: warm and well perfused Respiratory: unlabored, breathy voice Gastrointestinal/Genitourinary: non-distended abdomen Hematology/Lymphatic: palpable bilateral lymphadenopathy Neuro/Psych: alert, oriented Mental Status/Memory: intact Integumentary/Musculoskeletal: moves all extremities well RADIOLOGY CT neck- intraluminal right sided and posterior lateral neck soft tissue mass with ill defined borders and potential invasion of lateral wall of esophagus, bilateral tony disease MRI reviewed LABS COVID-19 negative 08/15/2008/01 path- FNA suspicious for follicular neoplasm DIAGNOSIS 60 year old female with likely advanced thyroid mass. PLAN OF CARE -To OR for direct laryngoscopy, bronchoscopy, esophagoscopy, possible tracheostomy, bilateral neck dissection, total thyroidectomy, central neck dissection, tracheal resection with reanastomosis, possible partial cervical esophagectomy, possible pedicled flap, possible vagus to recurrent laryngeal n erve transposition - risks, benefits, alternatives, and potential complications discussed and patient wishes to proceed - consent signed and in chart Resident signature: Isa Jimenez MD PURCHASING Associated attestation - Dionte Comer MD - 08/19/2020 7:14 AM VP PURCHASING I saw and examined the patient on the date of surgery with the resident and I agree with the documentation, with the following additions/addenda: Interval history: spoke at length by phone at 2030 last night with patient; she and were overwhelmed by the possible options and extent of disease after MRI was done Wednesday. We discussed necks, parathyroid, nerve graft/transposition, tracheal resection, possible esophageal resection, feeding tube, tracheostomy, prolonged stay >7 days, need for more surgery Physical exam: unchanged, though depressed appearing today Plan: OR today, consent in chart documented in this encounter Consult Notes * Munira Bates DO - 08/20/2020 10:10 AM CST [facility] INPATIENT Endocrinology Consultation Note Patient Name: Elizabeth Caicedo PCP: Taniya Grimes MD Date of Admission: 08/19/2020 Date of Service: 08/20/2020 Consulting Physician: Dionte Comer MD Reason for Consultation: hypocalcemia post thyroidectomy HPI: Patient is a 60 year old female who underwent a total thyroidectomy with central neck dissection as well as L/R neck dissections and tracheal resection and esophageal muscle resection along withparathyroid implantation of the Right deltoid. Postoperative findings per op note: - Differentiated thyroid cancer of right lobe with concern for esophageal invasion and probable tracheal invasion. 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 - Right recurrent laryngeal nerve paralysis. Pt had US of thyroid in 03/2020 showing thyroid nodules: 1.3 cm right lobe nodule, category TR [...] No follow-up is needed given its size. Had R nodule biopsy, Ct guided needle biopsy by IR on 04/18/20 Fine needle aspiration of right thyroid nodule was performed using 25 gauge needles under ultrasound guidance. 4 passes were made and the needle entries were documented. Pathology was adequate and per report consistent with benign follicular nodule. Pt had a CTA of her Chest done for hemoptysis , for a preop work for hip issues per the patient. Was done on 07/05/2020. Showed no PE or acute cardiopulmonary abnormality. Did show a Right paratrachealmass which may arise from the thyroid. Underwent CT scan neck showing enlargement R side nodule on 07/24/20. Had repeat FNA on 08/01/20. 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 + smoker Denies family hx of thyroid cancer. Denies radiation hx to the neck. This am patient is post op day 1 and labs showing: Results for ELIZABETH CAICEDO ( ) as of 08/20/2020 10:21 Ref. Range 08/20/2020 05:08 Ionized Calcium Whole Blood Latest Units: mmol/L 1.01 Adjusted Ionized Calcium Latest Ref Range: 1.19 - 1.34 mmol/L 0.98 (L) pH Whole Blood Latest Ref Range: 7.35 - 7.45 7.35 PTH Intact Latest Ref Range: 8.0 - 77.0 pg/mL <4.0 (L) ?? PMHx: Past Medical History: Diagnosis Date ??? Anxiety and depression ??? Degenerative disc disease, lumbar ??? Disorder of thyroid mass on thyroid - right ??? GERD (gastroesophageal reflux disease) ??? High cholesterol ??? HLD (hyperlipidemia) ??? Osteoarthritis of one hip, left ??? Psoriasis ??? Seasonal allergies ??? Snoring ??? SOB (shortness of breath) 2/2 thyroid mass ??? Tracheal mass PSurgHx: Past Surgical History: Procedure Laterality Date ??? Bilateral Tubal Ligation (BTL) ??? Section ??? ENDOSCOPY, COLON, DIAGNOSTIC no polyp ??? Polypectomy cervical Outpt Meds: Prior to Admission Medications Prescriptions Last Dose Informant Patient Reported? Taking? Acetaminophen (TYLENOL 8 HOUR ARTHRITIS PAIN PO) 08/19/2020 at 0330 Yes Yes Sig: Take by mouth as needed B Complex Vitamins (VITAMIN B COMPLEX) tablet 08/18/2020 at Unknown time No Yes Sig: Take by mouth DAILY. [id number] PO 08/17/2020 Yes No Sig: Take 1 tablet by mouth 3 times daily [place]-3 Fatty Acids (FISH OIL) 1000 MG capsule 08/12/2020 No No Sig: Take 1,000 mg by mouth 3 times daily with meals. PARoxetine (PAXIL) 40 MG tablet 08/19/2020 at 0330 No Yes Patient taking differently: Take 40 mg by mouth once daily albuterol HFA (PROVENTIL;VENTOLIN;PROAIR) 108 (90 Base) MCG/ACT inhaler 08/18/2020 at Unknown time Yes Yes Sig: Inhale 2 puffs by mouth every 4 hours as needed atorvastatin (LIPITOR) 40 MG tablet 08/18/2020 at Unknown time No Yes Sig: Take 1 tablet by mouth at bedtime [id number]-[id number] [id number] MG tablet 08/17/2020 Yes No Sig: Take 1 tablet by mouth 3 times daily cetirizine (ZYRTEC) 10 MG tablet 08/19/2020 at 0330 No Yes Sig: TAKE 1 TABLET BY MOUTH EVERY DAY clobetasol (TEMOVATE) 0.05 % ointment 08/16/2020 at Unknown time No Yes Sig: Apply to affected area 2 times daily clonazePAM (KLONOPIN) 0.5 MG tablet 08/18/2020 at Unknown time Yes Yes Sig: Take 0.5 mg by mouth 2 times daily famotidine (PEPCID) 20 MG tablet 08/18/2020 at Unknown time Yes Yes Sig: Take 20 mg by mouth 2 times daily as needed fluticasone propionate (FLONASE) 50 MCG/ACT nasal spray 08/19/2020 at 0330 Yes Yes Sig: Colona 2 sprays into each nostril gabapentin (NEURONTIN) 300 MG capsule 08/19/2020 at 0330 No Yes Sig: TAKE 1 CAPSULE BY MOUTH THREE TIMES A DAY Patient taking differently: Take 300 mg by mouth 3 times daily meloxicam (MOBIC) 7.5 MG tablet 08/12/2020 No No Sig: TAKE 1 TABLET BY MOUTH EVERY DAY pantoprazole EC (PROTONIX) 40 MG tablet 08/19/2020 at 0330 No Yes Sig: Take 1 tablet by mouth once daily traZODone (DESYREL) 50 MG tablet 08/17/2020 at Unknown time Yes Yes Sig: Take 50 mg by mouth at bedtime vitamin E (TOCOPHERYL) 400 UNIT capsule 08/12/2020 No No Sig: Take 400 Units by mouth TID. Facility-Administered Medications: None Current Meds: Outpatient Medications Marked as Taking for the 08/19/20 encounter (Hospital Encounter) Medication Sig ??? Acetaminophen (TYLENOL 8 HOUR ARTHRITIS PAIN PO) Take by mouth as needed ??? albuterol HFA (PROVENTIL;VENTOLIN;PROAIR) 108 (90 Base) MCG/ACT inhaler Inhale 2 puffs by mouthevery 4 hours as needed ??? atorvastatin (LIPITOR) 40 MG tablet Take 1 tablet by mouth at bedtime ??? B Complex Vitamins (VITAMIN B COMPLEX) tablet Take by mouth DAILY. ??? cetirizine (ZYRTEC) 10 MG tablet TAKE 1 TABLET BY MOUTH EVERY DAY ??? clobetasol (TEMOVATE) 0.05 % ointment Apply to affected area 2 times daily ??? clonazePAM (KLONOPIN) 0.5 MG tablet Take 0.5 mg by mouth 2 times daily ??? famotidine (PEPCID) 20 MG tablet Take 20 mg by mouth 2 times daily as needed ??? fluticasone propionate (FLONASE) 50 MCG/ACT nasal spray Colona 2 sprays into each nostril ??? gabapentin (NEURONTIN) 300 MG capsule TAKE 1 CAPSULE BY MOUTH THREE TIMES A DAY (Patient takingdifferently: Take 300 mg by mouth 3 times daily ) ??? pantoprazole EC (PROTONIX) 40 MG tablet Take 1 tablet by mouth once daily ??? PARoxetine (PAXIL) 40 MG tablet (Patient taking differently: Take 40 mg by mouth once daily ) ??? traZODone (DESYREL) 50 MG tablet Take 50 mg by mouth at bedtime All:No Known Allergies FamHx: Family History Problem Relation Name Age of [...] Alive ??? None Known Sister Status: Alive SocHx: Social History Tobacco Use ??? Smoking status: Light Tobacco Smoker Packs/day: 0.25 Years: 40.00 Pack years: 10.00 Types: Cigarettes Start date: 07/22/1973 ??? Smokeless tobacco: Never Used ??? Tobacco comment: 1 cig a day Substance Use Topics ??? Alcohol use: No Review of Systems: Gen: denies f/chills/heat/cold intolerance Eye/vision: denies double vision, pain, visual field cuts ENT: denies dysphagia/disphonia Resp: + cough and hemoptysis CV: denies chest pain/palpitations/CESPEDES GI: denies abdominal pain, diarrhea, constipation, nausea/vomiting : denies dysuria, nocturia, incontinence ENDO: Endocrine ROS: negative Extr: denies swelling, decreased ROM Neuro:denies tremor/seizure/tingling Psych: denies memory problems All other review of systems negative Physical Exam: Constitutional: BP 127/75 Pulse 78 Temp 99.1 ??F (37.3 ??C) (Oral) Resp 13 Ht 5' 1 (1.549 m) Wt 154 lb (69.9 kg) SpO2 95% BMI 29.1 kg/m2 General appearance alert, cooperative, no distress, appears stated age Head Normocephalic, without obvious abnormality, atraumatic, neck flexed forward Eyes conjunctivae/corneas clear. PERRL, eyelids slightly swollen Nose Nares normal. Septum midline. Mucosa normal. No drainage or sinus tenderness. Throat Lips, mucosa, and tongue normal. Teeth and gums normal Thyroid Absent, two agustín drains intact, sutures intact, Lungs clear to auscultation bilaterally Chest wall no tenderness Heart regular rate and rhythm, S1, S2 normal, no murmur, click, rub or gallop Abdomen soft, non-tender. Bowel sounds normal. No masses, No organomegaly Extremities extremities normal, atraumatic, no cyanosis or edema Pulses 2+ and symmetric Skin Skin color, texture, turgor normal. No rashes or lesions Lymph nodes Cervical, supraclavicular, and axillary nodes normal. Neurologic Cranial nerves 2 thru 12 grossly normal, moves all extremities well CBC: Recent Labs Component Name 08/19/20234708/01/20 1627 03/07/20 1519 WBC 15.3* 9.0 7.9 RBC 4.82 4.91 4.54 HGB 14.3 14.2 13.3 HCT 43.7 43.5 40.5 BMP: Recent Labs Component Name 08/19/20 2348 08/01/20 1627 03/07/20 1519 NA 137 141 143 CL 103 100 106 CO2 24 32* 33* BUN 10 12 13 CREATININE 0.7 0.8 0.8 CALCIUM 7.7* 9.4 8.8 LFTs: Recent Labs Component Name 03/07/20 1519 AST 23 ALT 26 ALKPHOS 94 TBILI 0.5 ALB 3.8 Magnesium: No results for input(s): MG in the last 42616 hours. Phosphorus: Recent Labs Component Name 08/19/20 2348 PHOS 6.5* Thyroid studies: Lab results smartLinks are not currently available Recent Labs Component Name 03/07/20 1519 HGBA1C 5.5 Recent Labs Component Name 03/07/20 1519 TSH 1.520 No results for input(s): MICROALBCREA in the last 08200 hours. Recent Labs Component Name 03/07/20 1519 HGBA1C 5.5 Recent Labs Component Name 08/19/20 2348 08/01/20 1627 03/07/20 1519 POTASSIUM 4.5 3.9 3.9 CO2 24 32* 33* BUN 10 12 13 CREATININE 0.7 0.8 0.8 GLUCOSE 204* 82 57* CALCIUM 7.7* 9.4 8.8 Recent Labs Component Name 03/07/20 1519 CHOL 150 TRIG 93 HDL 51 LDLCALC 80 FINE NEEDLE ASPIRATION - THYROID (STL): [id number] Order: [id number] Collected: 04/18/2020 ??4:07 PM Status: Final result ?Visible to patient: No (not released) Dx: Thyroid nodule Component Specimen Adequacy Adequate cellularity for evaluation. Final Diagnosis Thyroid nodule, right, US-FNA: - Benign - Consistent with benign follicular nodule FINE NEEDLE ASPIRATION - THYROID (STL): [id number] Order: [id number] Collected: 08/01/2020 ??2:51 PM Status: Final result ?Visible to patient: No (not released) Dx: Thyroid nodule Component Specimen Adequacy Adequate cellularity for evaluation. 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 at ??3:26 PM Clinical History The patient is a 60 year-old??woman??recently found to have a right thyroid nodule who underwent fine needle aspiration of the nodule on 08/01/2020. CT neck (07/24/2020) A 2.8 x 2.0 cm hypoattenuating nodule in the right lobe of the thyroid gland causing mass effect. Gross Description 1 pap stained slide, 1 cell block from 30cc collection fluid Microscopic Description A ThinPrep slide shows a hypercellular aspirate consisting of a small amount of colloid, abundant lymphocytes, and clusters of follicular epithelium with enlarged nuclei, prominent nucleoli, elevatedN:C ratios, and hyperchromasia. The cell block shows nuclear clearing in cells forming follicles. ?? Comment: Although the nuclear atypia is concerning for papillary-like nuclear changes, however the overall architecture is more in keeping with a follicular neoplasm. The histopathologic follow-up ofcases diagnosed as such includes follicular adenoma, follicular carcinoma, and follicular variant of papillary thyroid carcinoma, including its indolent counterpart NIFTP. Disclaimer The performance characteristics of all immunohistochemical and indirect immunofluorescence stains (if any) cited in this report were determined by the [facility] of [facility]. Some of these tests rely on the use of analyte-specific reagents and are subject to specific labeling requirements by the US Food and Drug Administration. Such tests were developed by the [facility] and have not been cleared or approved by the FDA. The FDA has determined that such clearance and approval is not necessary. These tests are used for clinical purposes and should not be regarded as investigational or for research. This laboratory is certified under the Clinical Laboratory Improvement Amendments (CLIA) as qualified to perform high complexity clinical laboratory testing. ?? This case has been personally reviewed and interpreted by the attending (teaching) pathologist. US thyroid 03/07/2020 EXAMINATION: Thyroid sonogram ?? HISTORY: E04.1: Thyroid nodule ?? COMPARISON: No prior study is available for comparison at the time of this dictation. ?? FINDINGS: ?? Right thyroid lobe: 4.2 x 2.5 x 1.8 cm Left thyroid lobe: 4.0 x 1.4 x 1.2 cm Isthmus: 5 mm ?? There are 3 nodules in the right lobe of the thyroid: ?? The first nodule is a well-circumscribed, hypoechoic [...] 2 nodule, which is nonsuspicious (image [id number]). ?? There are 2 nodules in the left lobe of the thyroid: ?? The first is a well-circumscribed hypoechoic with calcifications, measuring approximately 0.9 x 0.8 x 0.5 cm; this is a TR 4 nodule, recommend short-term follow-up (image [id number]). The second nodule is well-circumscribed, hypoechoic, solid nodule, measuring 0.6 x 0.6 x 0.3 cm; this is a TR 4 nodule, which is not suspicious (image [id number]). ?? The isthmus is mildly thickened. Vascularity of the thyroid is normal. ? IMPRESSION: 1.3 cm right lobe nodule, category [...] suspicious). No follow-up is needed given its size CT neck soft tissue 07/24/2020 IMPRESSION: ?? 1. A mildly enlarged left level 3 lymph node measuring 1.4 x 2.2 cm. This is indeterminant but can be malignant. ?? 2. A 2.8 x 2.0 cm hypoattenuating nodule in the right lobe of the thyroid gland. It causes mass effect on the right posterior aspect of the upper trachea. These nodule has previously been biopsied with a sonogram guided thyroid fine needle aspiration. However, this may have increased in size. Given the presence of an enlarged cervical lymph node, thyroid sonogram evaluation with possible rebiopsy is recommended to exclude malignancy. ?? 3. Incidental note of a 1 cm-year-old defined enhancing lesion in the posterior right putamen without mass effect. Recommend a dedicated brain MRI without and with contrast to further evaluate.. MRI brain 08/17/2020 IMPRESSION: ?? 1.Corresponding to the abnormality seen on the [...] enlarged left level 3/4 cervical lymph node. ?? I, Dr. CHANTELL ROSALES have personally reviewed and interpreted this examination/study. Assessment: Hypocalcemia post thyroidectomy Postoperative hypothyroidism Postoperative hypoparathyroidism, ? Temporary Thyroid cancer, pathology pending Hx tobacco abuse Hx hemoptysis Abnormal MRI brain that needs follow up still (1.Corresponding to the abnormality seen on the recent [...] available). Short interval follow-up with contrast is recommended.) Recommendations: Hypocalcemia post thyroidectomy -monitor ionized calcium every 6 hrs. Check Mg and Phos levels if not done so. Keep Mg > 2 as hypomagnesia is associated with PTH resistence - Would give a one time dose of ergocalciferol 50K now while waiting for vitamin D level - Start Oscal 500-200 1 tab TID and stop the current dose of calcium carbonate - Start calcitriol 0.50 mcg daily - give 4 amps of Ca gluconate in 1 L over 12 hours now - ordered - Check Ionized calcium Q6H; and if still < 1.1 --> give 1 gram of IV calcium gluconate and give additional 0.25 mcg of calcitriol and increases calcitriol daily dose Add thyroglobulin reflex panel in am Check Vitamin D level in am Start Levothyroxine 112 mcg daily in am and thyroid medication must be 4 hours apart from any Calcium pill We will make follow up arrangements in office for this patient Munira Bates, DO Endocrinology, Diabetes & Metabolism PURCHASING Associated attestation - Yosi Bustamante MD - 08/20/2020 4:19 PM VP PURCHASING I HAVE SEEN AND EXAMINED THE PATIENT WITH THE ENDOCRINE FELLOW AND I AGREE WITH THE FINDINGS AND PLAN OF CARE DOCUMENTED BY THE ENDOCRINE FELLOW DATE OF SERVICE 08/20/2020 Cc Suspected thyroid cancer Hypothyroidism Hypocalcemia Hypoparathyroidism S/p thyroidectomy S/p surgical parathyroidectomy S 60 year old white female Thyroid nodule found on CT scan or CXR when patient was being evaluated for hemoptysis Patient was stopping smoking so she could have hip replacement surgery Hemoptysis occurred and CT was done A paratracheal mass was identified Patient had one FNA biopsy that was negative and a subsequent FNA biopsy was suspicious for malignancy This led to current thyroidectomy and lymph node removal Post op has hypocalcemia and low PTH on lab also No paresthesias when we came to see patient But she is on IV calcium No family history of thyroid problems No radiation exposure Dysphagia to liquids pre op No dyspnea or CESPEDES but was limited by hip pain No dysphonia pre op No prior thyroid problems Chart reviewed including care everywhere and media and results section in [facility] Results for ELIZABETH CAICEDO ( ) as of 08/20/2020 16:11 Ref. Range 03/07/2020 15:19 08/20/2020 05:08 Hemoglobin A1c Latest Ref Range: 4.4 - 6.3 % 5.5 Estimated Average Glucose Latest Units: mg/dL 111 PTH Intact Latest Ref Range: 8.0 - 77.0 pg/mL <4.0 (L) TSH Latest Ref Range: 0.350 - 4.940 uIU/mL 1.520 Results for ELIZABETH CAICEDO ( ) as of 08/20/2020 16:11 Ref. Range 08/19/2020 18:16 08/19/2020 23:48 08/20/2020 05:08 08/20/2020 11:41 Sodium Latest Ref Range: 136 - 145 mmol/L 137 Potassium Latest Ref Range: 3.5 - 4.5 mmol/L 4.5 Chloride Latest Ref Range: 98 - 107 mmol/L 103 CO2 Latest Ref Range: 22 - 29 mmol/L 24 Anion Gap Latest Ref Range: 8 - 18 15 BUN Latest Ref Range: 7 - 26 mg/dL 10 Creatinine Latest Ref Range: 0.6 - 1.2 mg/dL 0.7 eGFR Latest Ref Range: >60 mL/min/1.73 m2 >60 Glucose Latest Ref Range: 70 - 115 mg/dL 204 (H) Calcium Latest Ref Range: 8.4 - 10.2 mg/dL 7.7 (L) Ionized Calcium Whole Blood Latest Units: mmol/L 1.09 1.10 1.01 1.13 Adjusted Ionized Calcium Latest Ref Range: 1.19 - 1.34 mmol/L 0.96 (L) 1.05 (L) 0.98 (L) 1.08 (L) Magnesium Latest Ref Range: 1.6 - 2.6 mg/dL 1.6 Phosphorus Latest Ref Range: 2.3 - 4.7 mg/dL 6.5 (H) BUN/Creatinine Ratio Latest Ref Range: 7 - 23 14 pH Whole Blood Latest Ref Range: 7.35 - 7.45 7.16 (L) 7.30 (L) 7.35 7.31 (L) Osmolality Calculated Latest Ref Range: 270 - 300 mOsm/kg 289 Collected: 04/18/2020 4:07 PM Status: Final result Visible to patient: No (not released) Dx: Thyroid nodule Component Specimen Adequacy Adequate cellularity for evaluation. Final Diagnosis Thyroid nodule, right, US-FNA: - Benign - Consistent with benign follicular nodule Collected: 08/01/2020 2:51 PM Status: Final result Visible to patient: No (not released) Dx: Thyroidnodule Component Specimen Adequacy Adequate cellularity for evaluation. 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 Plan Start levothyroxine 112 mcg daily Instructions for taking levothyroxine Brand name is preferred or same source Take thyroid pill all by itself Take thyroid pill one hour before food or 2 to 3 hours after food Heat, humidity, and direct sunlight will cause a loss of potency Never store thyroid pill in the bathroom Thyroid medication must be four hours away form any calcium pills Calcitriol 50 mcg daily Calcium carbonate 500 mg qid with food Iv calcium until serum calcium optimal : 4 amps ca gluconate in 1000 ml D5 W infused over 12 hours Vitamin D 50,000 units times once now Lab : thyroglobulin reflex profile, vitamin D , Lab every 12 hours : calcium and albumin, phosphorus , magnesium Follow up endocrine clinic six weeks post surgery Signed electronically Yosi Bustamante MD Professor of Internal Medicine documented in this encounter OR Notes * Brief Op Note - Isa Jimenez MD - 08/19/2020 8:34 AM CST Brief Op Note Procedure: DIRECT LARYNGOSCOPY WITH BIOPSY, TOTAL THYROIDECTOMY WITH CENTRAL NECK DISSECTION, RIGHTAND LEFT NECK DISSECTIONS, TRACHEAL TUMOR RESECTION AND REANASTOMOSIS Patient Name: Elizabeth Caicedo Date of Service: 08/19/2020 Pre-Op Diagnosis: TRACHEAL MASS, HOARSENESS, RIGHT VOCAL CORD PARALYSIS, LYMPHADENECTOMY HEAD AND NECK Post-Op Diagnosis: SAME Surgeon(s) and Role: * Dionte Comer MD - Primary * Isa Jimenez MD - Resident - Assisting * Dorian Merrill MD Anesthesia Type: general ETT Complications: none Findings: R thyroid mass invading trachea, resection with reanastomosis EBL: 135 mL Urine Output : 1010 mL IV Fluid Intake: see anesthesia report Drains: Drain 1 Channel Bulb Right Neck (Active) Drain 2 Channel Bulb Left Neck (Active) Drain 3 Open None Other (Comment) Neck (Active) Specimen(s): Order Name Source Comment Collection Info Order Time PATHOLOGY TISSUE Soft Tissue, Other Pre-op diagnosis: TRACHEAL MASS, HOARSENESS, RIGHT VOCAL CORD PARALYSIS, LYMPHADENECTOMY HEAD AND NECK Collected By: Dionte Comer MD 08/19/2020 11:46 AM Release to patient Immediate Isa Jimenez MD PURCHASING Associated attestation - Dionte Comer MD - 08/19/2020 4:13 PM VP PURCHASING I have reviewed the above brief operative note as entered by the resident and agree with the above description; however, for the most definitive information providers should refer to the full operative note as dictated. Edmar Comer MD * Operative - Dorian Merrill MD - 08/19/2020 8:34 AM CST [facility] DIVISION OF PEDIATRIC OTOLARYNGOLOGY- HEAD & NECK SURGERY OPERATIVE REPORT PATIENT NAME: Elizabeth Caicedo DATE OF : 1960 CSN: [id number] DATE OF OPERATION: 08/19/2020 0730 Pre Operative Diagnoses: Thyroid cancer with tracheal invasion Post Operative Diagnoses: Same Procedure: Cricotracheal resection and re-anastomosis Surgeon: Dorian Merrill M.D. Business Unit Director: Isa Jimenez M.D. Anesthesia: General Indications: Elizabeth is a now 60 year old female with a history of thyroid cancer invading her larynx and trachea with resultant right RLN paralysis Findings: Thyroid tumor invading right lateral and posterior tracheal richardson radiographically and intraoperatively; tumor invading the right lateral and anterior portion of cricoid cartilage intraoperatively with sacrifice of right RLN Description: The patient had already been brought to the operating room and placed in the supine position, placed under general anesthesia, and the majority of the ablative portion completed by Dr. Comer (to be dictated separately). At this point, the neck had been opened, left thyroid lobectomy completed with id entification and preservation of RLN, bilateral lateral and central neck dissections completed, andthe right thyroid lobe and tumor was nearly dissected free from esophagus and was pedicled on the right lateral trachea. Stay sutures of 2-0 prolene were placed in the anterior aspect of the trachea, distal to the involved segment. Blunt dissection completed separation of trachea and esophagus and a sergo was placed in the constitution party wall. A vertical incision was made in the anterior midline along the obviously involvedsegment. A reinforced ETT was then placed into the distal trachea through this incision, and the indwelling ETT was removed. Looking within the tracheal lumen, tumor could be easily visualized, and appropriate oncologic margins were taken, which included a cut at the inferior edge of cricoid on theright to remove tracheal rings 1-4 on the right and then the right half of trachealis. This left the left half of tracheal rings 1-4 that were resected and sent separately. It was then noted that theinferior portion of the cricoid was involved with tumor on the right anterolateral portion, so a portion of cricoid was resected and sent as another margin. Dissection was then performed in a blunt manner to free the distal trachea for mobilization anteriorly, and proximally the larynx had already been mobilized as well. The distal trachea was mobilized posteriorly, keeping its posterolateral attachments for good blood supply. Next, 4-0 PDS was then used in a simple interrupted fashion with extraluminal knots to close the trachealis. The patient was intubated transnasally, and the endotracheal tube was advanced such that the cuff was distal to the anastomosis. At this point, the 4-0 PDS was continued to be placed in a simple interrupted fashion with extraluminal knots. Complete, tension-free closure was noted. Irrigation was then performed. The wound was filled with irrigation, the cuff was deflated, and a Valsalva was performed with no anastomotic leak noted to 30 cm H2O. The previously-placed stay sutures in the distal trachea were threaded into a suture passer from the genioglossus suspension kit, which was looped around the hyoid bone. These sutures were then tied, and the knots were slid up towards the hyoid bone. The strap muscles were then reapproximated in the midline such that they were deepto these internal Reynaldo sutures. Closure of the wound was then completed by Dr. Comer as dictated separately. The patient was then turned back to the care of Anesthesia for extubation, which was uneventful and there were no stridor or retractions noted. The patient tolerated the procedure well. Dorian Merrill M.D. was present from the insertion to the removal of the endoscopes, and any other essential portions of the procedure, and was involved in all medical decision-making. Specimens: per Dr. Comer's operative report Estimated Blood Loss: minimal for this portion Complications: none Postop Disposition/Plan: - Per Dr. Comer PURCHASING * Operative - Dionte Comer MD - 08/19/2020 8:34 AM CST NAME: ELIZABETH CAICEDO : 1960 AGE: 60 PROC DATE: 08/19/2020 SEX: F SURGEON: Dionte Comer MD PREOPERATIVE DIAGNOSES: 1. Differentiated thyroid cancer of right lobe with concern for esophageal invasion and probable tracheal invasion. 2. 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 3. Right recurrent laryngeal nerve paralysis. POSTOPERATIVE DIAGNOSES: 1. Differentiated thyroid cancer of right lobe with concern for esophageal invasion and probable tracheal invasion. 2. 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 3. Right recurrent laryngeal nerve paralysis. PROCEDURES PERFORMED: 1. Bilateral modified radical neck dissection, CPT code 87092-63. 2. Total thyroidectomy with central neck dissection and tracheal resection and esophageal muscle resection, CPT code 67467. 3. Parathyroid implantation of the right deltoid, CPT code 21654. 4. Laryngoscopy, diagnostic, CPT code 22764. 5. Rigid esophagoscopy, diagnostic, CPT code 79521. SURGEON: Edmar Comer MD CHANCERY CLERK: Isa Jimenez MD ESTIMATED BLOOD LOSS: 125 mL INDICATIONS FOR PROCEDURE: The patient is a 60-year-old woman who presented to my clinic with longstanding hoarseness and a scan concerning for metastatic thyroid cancer. Fine needle aspirations werenot completely diagnostic, based on clinical examination and tracheoscopy which revealed an intraluminal mass, she underwent informed consent for the aforementioned procedures. Preoperative MRI revealed possible esophageal invasion. OPERATIVE FINDINGS: 1. Laryngoscopy revealed a posterior/right side tracheal wall mass consistent with known carcinoma. 2. Rigid esophagoscopy revealed no intraluminal extension of tumor; esophageal temp probe was placed for assistance during the case. 3. Bilateral adenopathy, left level 4, 5 as well as the left level 2A suspicious and right level 4,5 and right level 3/2A junction suspicious. 4. Central neck dissection with suspicious adenopathy. 5. Gross total invasion of the wall of the trachea extending to the anterior wall, and into the muscular wall of the esophagus, and with eventual negative margins on right recurrent laryngeal nerve. 6. Cricotracheal resection and anastomosis performed and dictated by Dr. Dorian Merrill. 7. Identified a remaining parathyroid gland removed with central neck was reimplanted into the right deltoid. DESCRIPTION OF PROCEDURE: The patient was identified, marked, and consent confirmed in the preoperative holding area. She was brought back under the care of anesthesia and underwent induction of general anesthetic. We performed a limited surgical timeout for the diagnostic portion of the procedure.A maxillary alveolar ridge tooth guard was placed, and I used the Dedo laryngoscope to obtain a view of the larynx, which had normal anatomy other than an absence of motion of the right side of the larynx. We then used an operating telescope to evaluate and obtained photodocumentation of the posterior/right side tracheal mass which extended up to the cricoid shelf. I then placed and secured a nerve monitoring tube. Next, I brought the rigid esophagoscope on to the field, and was able to easily pass this into the cervical esophagus. I then inverted this to look at the anterior wall of the esophagus as well as the right side, and there was no evidence of extension of tumor into the lumen of the esophagus. The patient was then placed in gentle neck extension, and a low cervical extension wasthen marked and infiltrated with local anesthetic. The patient was then prepped and draped in the usual sterile fashion. We then performed a complete surgical timeout for the remainder of the procedures. We began the procedure by incising sharply through the skin and subcutaneous tissue. We elevated subplatysmal flaps inferiorly and placed stay hooks. We then elevated subplatysmal flap superiorly up to the level of the hyoid, as well as the inferior border of each submandibular gland. First, we dissected along the left neck, with the anterior border of the sternocleidomastoid as our initial landmark, dissecting down onto the cervical sensory rootlets, and then dissecting along the anterior border of the sternocleidomastoid until we easily identified the spinal accessory nerve in its expected location. It stimulated appropriately. We then dissected into the crease between the internal jugular vessel. Next, we dissected down into the left level 4/5 junction. Here, we encountered suspicious adenopathy and reflected this off of the deep cervical fascia. However, as we did this, despite using clamp and tie technique in the area proximal to the thoracic duct, we had an intraoperative chyle leak, which was recognized and controlled utilizing multiple 2-0 silk sutures in [id number] fashion. We checked this area again twice, throughout the case, and did not notice any further leak including with anesthesia performing a Valsalva. We then reflected the contents of the next levels off of the carotid sheath, and incised sharply off the internal jugular, and then passed them off the field for permanent section. We then proceeded with the right neck dissection, utilizing similar technique along the anterior border of the sternocleidomastoid muscle, down to the level of the cervical sensory rootlets, and thenuntil we identified the spinal accessory nerve. Here, there was some suspicious adenopathy in the level 2A/3 junction, medial to the internal jugular, so we reflected this over on to the lateral aspect to keep it in continuity with the specimen. As we dissected down to the level of the transverse cervical vessels and level 5, we reflected the entire specimen from lateral to medial, used clamp andtie technique for accessory thoracic duct, and then incised the entire specimen sharply off the contents of the carotid sheath. We then divided the specimen and passed it off the field for permanent section. With both neck dissections completed, we then identified the midline raphae, and identified the face of the thyroid gland with lateralization of the sternohyoid muscles. Next, we performed the left thyroid lobectomy, utilizing a standard technique along the lateral border of the gland, ligating themiddle thyroid vein, and we were able to easily control the superior pole vessels with excellent access. As we reflected the gland from lateral to medial, we easily identified the recurrent laryngealnerve and traced it upward into the joint, and divided Sharif ligament, and then we controlled the inferior pole vessels reflected this onto the face of the trachea. Here, we began to note dense adhesi ons just to the right of midline of the thyroid isthmus, which was suggestive of tumor. For this reason, we truncated the lobe to provide better visualization and sent this as a separate specimen. Next, we began to dissect along the lateral border of the right thyroid lobe. However, as we did so, it became clear that there was a dense adhesion to the junction of the invasion of the esophagus. We then elected to control the superior thyroid vessels utilizing clamp and tie technique. As we reflected the specimen from lateral to medial, it was fixed to the cervical esophagus, we dissected out tothe common carotid artery, and then began to reflect the specimen from lateral to medial. We again easily identify the recurrent laryngeal nerve, but it went directly into tumor and was widely thickened and clearly invaded grossly. We then took a margin, which was initially positive, so we sent an additional nerve margin, which was negative for tumor entirely. Meanwhile, we dissected through the muscular layers of the esophagus, with care taken to grossly remove the tumor without any injury to the mucosa or submucosa. Next, in preparation for completion of the resection cuts with en Joseph left this in place, and began to dissect the central neck, as there was obvious palpable disease, left greater than right. We dissected inferiorly along the recurrent laryngeal nerve on the left side, and at this point, we encountered what appeared to be devascularized parathyroid tissue. Sentthis for frozen section, which was confirmed as parathyroid tissue. Meanwhile, we dissected inferiorly down to the level of the innominate artery, crossed what appeared to be thymic tissue, and then reflected the specimen from lateral to medial onto the right side, so we were able to remove all of the remaining contents of the central neck on that side as well and passed it off the field for permanent section. This left us with a significant length of trachea that could be mobilized by Dr. Merrillfor the reanastomosis. At this point, with the frozen section confirmed that parathyroid tissue andconcern for longstanding hyperparathyroidism, I took the remaining parathyroid, stored in saline, minced it into tiny pieces, and then injected it with 1.5 mL of sterile saline into the right deltoidmuscle. Meanwhile, Dr. Merrill and I observed the invasion of the tumor, and as I dissected across thecommon constitution party wall, we decided to make our anterior cut through the trachea to better visualize the tumor. Dr. Merrill made the cuts down the midline, and we withdrew the endotracheal tube and replaced it with a reinforced tube and secured through the neck. Using intermittent apnea technique, Dr. Merrill then completed the tracheal cuts in conjunction with me. We then performed the anastomosis as well as mobilization of the trachea after we confirmed that there was no significant gross disease, only suggestion of microscopic disease up into the cricoid margins, which would not be amenable to furtherresection. At the conclusion of the case, I was present for the patient's extubation, which was uneventful andshe was easily transported to recovery. SPECIMEN: Right level 2A, 3, 4/5; left level 2A, 3, 4/5, central neck dissection; left thyroid lobe; right thyroid lobe with tracheal and esophageal invasion, stitch less for orientation; revision superior margin into cricoid, inked true margin; left central neck mass for frozen; additional paratracheal mass, query parathyroid for frozen. DRAINS: [place] to the central neck and 19-[place] round to each lateral deep neck. COMPLICATIONS: None. DISPOSITION: Recovery and then intensive care unit. MD ONOFRE Durbin/REBECCA.[id number] Doc ID: [id number] Voice Job ID: [id number] PURCHASING documented in this encounter Miscellaneous Notes * Coding Query - Dionte Comer MD - 08/29/2020 11:30 AM CST Pathology Confirmation Doctor, the Pathologist is not considered a treating physician, therefore; inpatient coding guidelines prohibit code assignments based solely on the content of pathology reports. Please review the pathology report(s) in this record and document below, or in the body of the medical record the post- pathology, diagnosis/es for this patient visit. ABNORMAL PATHOLOGY FINDING: CODING GUIDELINES Abnormal findings on the pathology report are not coded and reported unless the provider indicatestheir clinical significance. This ensures that the documentation and the codes reported are consistent with the attending physician's interpretation. Dr. 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 PLEASE DOCUMENT YOUR RESPONSE BELOW: __x__Yes ____No ____Other Diagnosis (specify): ____Clinically undetermined/unknown ____Edmar Comer MD, [facility] Physician Signature Date/Time 09/03/2020 This is part of the medical record PURCHASING documented in this encounter Plan of Treatment Upcoming Encounters Date Type Department Care Team (Late st Contact Info) Description 07/25/2024 10:00 AM VP PURCHASING Office Visit [facility] - Endocrinology [address] [place] [address], [place] [address] Yosi Bustamante MD [address] [place] [address] [place] [address] 07/26/2024 10:00 AM VP PURCHASING Appointment [facility]STIC [facility] [address] [place] [phone] Neri Delgado MD [address] [place] [phone] 07/26/2024 10:00 AM VP PURCHASING Office Visit [facility] - ENT [address] [place] [phone] Myra Farmer, LACE ROLLER OPERATOR [address] [place] [address] [place] [phone] 07/26/2024 11:15 AM VP PURCHASING Office Visit [facility] - ENT [address] [place] [phone] Neri Delgado MD [address] [place] [phone] 08/02/2024 2:20 PM VP PURCHASING Appointment [facility] [address] [place] [address] 08/02/2024 3:00 PM VP PURCHASING Office Visit [facility] - Hematology/Oncology [address] [place] [phone] Remi Beckett MD [address] [place] [phone] 08/18/2024 1:45 PM VP PURCHASING Office Visit [facility] - ENT [address] [place] [phone] Neri Delgado MD [address] [place] [phone] documented as of this encounter Procedures Procedure Name Priority Date/Time Associated Diagnosis Comments CALCIUM IONIZED WHOLE BLOOD Routine 08/29/2020 4:08 AM VP PURCHASING PTH INTACT W/O CALCIUM AM Draw 08/29/2020 4:08 AM VP PURCHASING CBC W/O DIFFERENTIAL Routine 08/29/2020 4:08 AM VP PURCHASING BASIC METABOLIC PANEL (CALCIUM TOTAL) Routine 08/29/2020 4:08 AM VP PURCHASING PHOSPHORUS BLOOD Routine 08/29/2020 4:08 AM VP PURCHASING MAGNESIUM BLOOD Routine 08/29/2020 4:08 AM VP PURCHASING ALBUMIN BLOOD Routine 08/29/2020 4:08 AM VP PURCHASING CALCIUM IONIZED WHOLE BLOOD Routine 08/28/2020 9:42 PM VP PURCHASING CALCIUM IONIZED WHOLE BLOOD Routine 08/28/2020 4:05 PM VP PURCHASING CALCIUM IONIZED WHOLE BLOOD Routine 08/28/2020 11:54 AM VP PURCHASING CALCIUM IONIZED WHOLE BLOOD Routine 08/28/2020 5:49 AM VP PURCHASING PTH INTACT W/O CALCIUM AM Draw 08/28/2020 5:49 AM VP PURCHASING CBC W/O DIFFERENTIAL Routine 08/28/2020 5:49 AM VP PURCHASING BASIC METABOLIC PANEL (CALCIUM TOTAL) Routine 08/28/2020 5:49 AM VP PURCHASING PHOSPHORUS BLOOD Routine 08/28/2020 5:49 AM VP PURCHASING MAGNESIUM BLOOD Routine 08/28/2020 5:49 AM VP PURCHASING ALBUMIN BLOOD Routine 08/28/2020 5:49 AM VP PURCHASING CALCIUM IONIZED WHOLE BLOOD Routine 08/27/2020 4:53 PM VP PURCHASING GLUCOSE - POINT OF CARE Routine 08/27/2020 4:27 PM VP PURCHASING CALCIUM IONIZED WHOLE BLOOD Routine 08/27/2020 11:41 AM VP PURCHASING CALCIUM IONIZED WHOLE BLOOD Routine 08/27/2020 5:48 AM VP PURCHASING PTH INTACT W/O CALCIUM AM Draw 08/27/2020 5:48 AM VP PURCHASING CBC W/O DIFFERENTIAL Routine 08/27/2020 5:48 AM VP PURCHASING BASIC METABOLIC PANEL (CALCIUM TOTAL) Routine 08/27/2020 5:48 AM VP PURCHASING PHOSPHORUS BLOOD Routine 08/27/2020 5:48 AM VP PURCHASING MAGNESIUM BLOOD Routine 08/27/2020 5:48 AM VP PURCHASING ALBUMIN BLOOD Routine 08/27/2020 5:48 AM VP PURCHASING CALCIUM IONIZED WHOLE BLOOD Routine 08/26/2020 4:20 PM VP PURCHASING CALCIUM IONIZED WHOLE BLOOD Routine 08/26/2020 11:35 AM VP PURCHASING CALCIUM IONIZED WHOLE BLOOD Routine 08/26/2020 6:43 AM VP PURCHASING CALCIUM IONIZED WHOLE BLOOD Routine 08/26/2020 12:41 AM VP PURCHASING PTH INTACT W/O CALCIUM AM Draw 08/26/2020 12:41 AM VP PURCHASING CBC W/O DIFFERENTIAL Routine 08/26/2020 12:41 AM VP PURCHASING BASIC METABOLIC PANEL (CALCIUM TOTAL) Routine 08/26/2020 12:41 AM VP PURCHASING PHOSPHORUS BLOOD Routine 08/26/2020 12:4 1 AM VP PURCHASING MAGNESIUM BLOOD Routine 08/26/2020 12:41 AM VP PURCHASING ALBUMIN BLOOD Routine 08/26/2020 12:41 AM VP PURCHASING CALCIUM IONIZED WHOLE BLOOD Routine 08/25/2020 4:06 PM VP PURCHASING CALCIUM URINE RANDOM Routine 08/25/2020 1:12 PM VP PURCHASING CALCIUM IONIZED WHOLE BLOOD Routine 08/25/2020 10:53 AM VP PURCHASING CALCIUM IONIZED WHOLE BLOOD Routine 08/25/2020 9:04 AM VP PURCHASING CALCIUM IONIZED WHOLE BLOOD Routine 08/25/2020 4:16 AM VP PURCHASING PTH INTACT W/O CALCIUM AM Draw 08/25/2020 4:16 AM VP PURCHASING CBC W/O DIFFERENTIAL Routine 08/25/2020 4:16 AM VP PURCHASING BASIC METABOLIC PANEL (CALCIUM TOTAL) Routine 08/25/2020 4:16 AM VP PURCHASING PHOSPHORUS BLOOD Routine 08/25/2020 4:16 AM VP PURCHASING MAGNESIUM BLOOD Routine 08/25/2020 4:16 AM VP PURCHASING ALBUMIN BLOOD Routine 08/25/2020 4:16 AM VP PURCHASING CALCIUM IONIZED WHOLE BLOOD Routine 08/24/2020 4:50 PM VP PURCHASING CALCIUM IONIZED WHOLE BLOOD Routine 08/24/2020 10:42 AM VP PURCHASING CALCIUM IONIZED WHOLE BLOOD Routine 08/24/2020 4:17 AM VP PURCHASING CALCIUM URINE RANDOM Routine 08/24/2020 2:48 AM VP PURCHASING CALCIUM IONIZED WHOLE BLOOD Routine 08/24/2020 12:05 AM VP PURCHASING PTH INTACT W/O CALCIUM AM Draw 08/24/2020 12:05 AM VP PURCHASING CBC W/O DIFFERENTIAL Routine 08/24/2020 12:05 AM VP PURCHASING BASIC METABOLIC PANEL (CALCIUM TOTAL) Routine 08/24/2020 12:05 AM VP PURCHASING PHOSPHORUS BLOOD Routine 08/24/2020 12:0 5 AM VP PURCHASING ALBUMIN BLOOD AM Draw 08/24/2020 12:05 AM VP PURCHASING CALCIUM IONIZED WHOLE BLOOD Routine 08/23/2020 5:31 PM VP PURCHASING OT EVAL AND TREAT Routine 08/23/2020 11: 25 AM VP PURCHASING CALCIUM IONIZED WHOLE BLOOD Routine 08/23/2020 10:49 AM VP PURCHASING MAGNESIUM BLOOD Routine 08/23/2020 10:49 AM VP PURCHASING CALCIUM URINE RANDOM Routine 08/23/2020 5:04 AM VP PURCHASING CALCIUM IONIZED WHOLE BLOOD Routine 08/23/2020 4:28 AM VP PURCHASING PTH INTACT W/O CALCIUM AM Draw 08/23/2020 4:28 AM VP PURCHASING BASIC METABOLIC PANEL (CALCIUM TOTAL) Add on 08/23/2020 4:28 AM VP PURCHASING ALBUMIN BLOOD AM Draw 08/23/2020 4:28 AM VP PURCHASING PREPARE RBC LEUKOREDUCED UNIT Routine 08/23/2020 2:17 AM VP PURCHASING CALCIUM IONIZED WHOLE BLOOD Routine 08/22/2020 11:50 PM VP PURCHASING CBC W/O DIFFERENTIAL Routine 08/22/2020 11:50 PM VP PURCHASING BASIC METABOLIC PANEL (CALCIUM TOTAL) Routine 08/22/2020 11:50 PM VP PURCHASING PHOSPHORUS BLOOD Routine 08/22/2020 11:5 0 PM VP PURCHASING CALCIUM IONIZED WHOLE BLOOD Routine 08/22/2020 4:36 PM VP PURCHASING CALCIUM IONIZED WHOLE BLOOD Routine 08/22/2020 11:05 AM VP PURCHASING RENAL FUNCTION PANEL STAT 08/22/2020 11:05 AM VP PURCHASING MAGNESIUM BLOOD Routine 08/22/2020 11:05 AM VP PURCHASING CALCIUM IONIZED WHOLE BLOOD Routine 08/22/2020 5:04 AM VP PURCHASING CBC W/O DIFFERENTIAL Routine 08/21/2020 11:44 PM VP PURCHASING BASIC METABOLIC PANEL (CALCIUM TOTAL) Routine 08/21/2020 11:44 PM VP PURCHASING PHOSPHORUS BLOOD Routine 08/21/2020 11:4 4 PM VP PURCHASING MAGNESIUM BLOOD Routine 08/21/2020 11:44 PM VP PURCHASING CALCIUM IONIZED WHOLE BLOOD Routine 08/21/2020 11:43 PM VP PURCHASING CALCIUM IONIZED WHOLE BLOOD Routine 08/21/2020 5:34 PM VP PURCHASING MAGNESIUM BLOOD Routine 08/21/2020 12:01 PM VP PURCHASING CALCIUM IONIZED WHOLE BLOOD Routine 08/21/2020 11:07 AM VP PURCHASING CALCIUM IONIZED WHOLE BLOOD Routine 08/21/2020 4:25 AM VP PURCHASING THYROGLOBULIN REFLEX PROFILE AM Draw 08/21/2020 4:25 AM VP PURCHASING THYROGLOBULIN BY ANTONIETA RFLXED Routine 08/21/2020 4:25 AM VP PURCHASING VITAMIN D 25-HYDROXY AM Draw 08/21/2020 4:25 AM VP PURCHASING CBC W/O DIFFERENTIAL Routine 08/20/2020 11:24 PM VP PURCHASING BASIC METABOLIC PANEL (CALCIUM TOTAL) Routine 08/20/2020 11:24 PM VP PURCHASING PHOSPHORUS BLOOD Routine 08/20/2020 11:2 4 PM VP PURCHASING MAGNESIUM BLOOD Routine 08/20/2020 11:24 PM VP PURCHASING CALCIUM IONIZED WHOLE BLOOD Routine 08/20/2020 11:04 PM VP PURCHASING CALCIUM IONIZED WHOLE BLOOD Routine 08/20/2020 5:46 PM VP PURCHASING CALCIUM IONIZED WHOLE BLOOD Routine 08/20/2020 11:41 AM VP PURCHASING CALCIUM IONIZED WHOLE BLOOD Routine 08/20/2020 5:08 AM VP PURCHASING PTH INTACT W/O CALCIUM AM Draw 08/20/2020 5:08 AM VP PURCHASING CALCIUM IONIZED WHOLE BLOOD Routine 08/19/2020 11:48 PM VP PURCHASING CBC W/O DIFFERENTIAL Routine 08/19/2020 11:48 PM VP PURCHASING BASIC METABOLIC PANEL (CALCIUM TOTAL) Routine 08/19/2020 11:48 PM VP PURCHASING PHOSPHORUS BLOOD Routine 08/19/2020 11:4 8 PM VP PURCHASING MAGNESIUM BLOOD Routine 08/19/2020 11:48 PM VP PURCHASING CALCIUM IONIZED WHOLE BLOOD Routine 08/19/2020 6:16 PM VP PURCHASING XR ABDOMEN KUB PORTABLE STAT 08/19/2020 4:52 PM VP PURCHASING Tracheal mass PATHOLOGY TISSUE Routine 08/19/2020 9:43 AM VP PURCHASING 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 EXCISION/RESECTION/R EPAIR TRACHEA 08/19/2020 8:34 AM VP PURCHASING 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 Special Needs Supine, STORZ VIDEO TOWER, LARYNGEAL TELESCOPES, LEICA Laryngeal Microscope W/ 400 MM LENS RLN monitoring,DS 2 DISSECTION NECK 08/19/2020 8:34 AM VP PURCHASING 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 Special Needs Supine, STORZ VIDEO TOWER, LARYNGEAL TELESCOPES, LEICA Laryngeal Microscope W/ 400 MM LENS RLN monitoring,DS 2/8 LARYNGOSCOPY WITH MICROSCOPE 08/19/2020 8:34 AM VP PURCHASING 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 Special Needs Supine, STORZ VIDEO TOWER, LARYNGEAL TELESCOPES, LEICA Laryngeal Microscope W/ 400 MM LENS RLN monitoring,DS 2/8 TYPE + SCREEN PANEL MARAL 08/19/2020 6 :18 AM VP PURCHASING documented in this encounter Results * (ABNORMAL) RENAL FUNCTION PANEL (09/11/2020 2:13 PM VP PURCHASING) BUN 13 7 - 26 mg/dL 09/11/2020 2:56 PM [facility] Creatinine 0.7 0.6 - 1.2 mg/dL 09/11/2020 2:56 PM [facility] Sodium 143 136 - 145 mmol/L 09/11/2020 2:56 PM [facility] Potassium 3.9 3.5 - 4.5 mmol/L 09/11/2020 2:56 PM [facility] Chloride 104 98 - 107 mmol/L 09/11/2020 2:56 PM [facility] CO2 29 22 - 29 mmol/L 09/11/2020 2:56 PM [facility] Glucose 91 70 - 115 mg/dL 09/11/2020 2:56 PM [facility] Albumin 3.0(L) 3.4 - 5.0 g/dL 09/11/2020 2:56 PM [facility] Calcium 8.5 8.4 - 10.2 mg/dL 09/11/2020 2:56 PM [facility] Phosphorus 5.5(H) 2.3 - 4.7 mg/dL 09/11/2020 2:56 PM [facility] Anion Gap 14 8 - 18 09/11/2020 2:56 PM [facility] BUN/Creatinine Ratio 19 7 - 23 09/11/2020 2:56 PM [facility] Osmolality Calculated 296 270 - 300 mOsm/kg 09/11/2020 2:56 PM [facility] eGFR >60 >60 mL/min/1.7 3 m2 09/11/2020 2:56 PM [facility] Blood BLOOD SPECIMEN / Unknown Lab Venipuncture / Unknown 09/11/2020 2:13 PM VP PURCHASING 09/11/2020 2:29 PM VP PURCHASING Dionte Comer MD LAB - CHEMISTRY [facility] [address] [place] [phone], [facility] [place] [phone] * (ABNORMAL) CALCIUM IONIZED WHOLE BLOOD (08/29/2020 4:08 AM VP PURCHASING) Ionized Calcium Whole Blood 1.05 mmol/L 08/29/2020 4:58 AM [facility] Adjusted Ionized Calcium 1.07(L) 1.19 - 1.34 mmol/L 08/29/2020 4:58 AM [facility] pH Whole Blood 7.44 7.35 - 7.45 08/29/2020 4:58 AM [facility] Blood WHOLE BLOOD SPECIMEN / Unknown Lab Venipuncture / Unknown 08/29/2020 4:08 AM VP PURCHASING 08/29/2020 4:57 AM VP PURCHASING Dionte Comer MD LAB - CHEMISTRY [facility] [address] [phone], [facility] [place] [phone] * (ABNORMAL) PHOSPHORUS BLOOD (08/29/2020 4:08 AM VP PURCHASING) Phosphorus 4.9(H) 2.3 - 4.7 mg/dL 08/29/2020 5:28 AM [facility] Blood BLOOD SPECIMEN / Unknown Lab Venipuncture / Unknown 08/29/2020 4:08 AM VP PURCHASING 08/29/2020 5:00 AM VP PURCHASING Dionte Comer MD LAB - CHEMISTRY [facility] [address] [place] [address], [facility] [place] [phone] * MAGNESIUM BLOOD (08/29/2020 4:08 AM VP PURCHASING) Pathologist [facility] Magnesium 2.3 1.6 - 2.6 mg/dL 08/29/2020 5:28 AM [facility] Blood BLOOD SPECIMEN / Unknown Lab Venipuncture / Unknown 08/29/2020 4:08 AM VP PURCHASING 08/29/2020 5:00 AM VP PURCHASING Dionte Comer MD LAB - CHEMISTRY [facility] [address] [phone], [facility] [place] [phone] * (ABNORMAL) CBC W/O DIFFERENTIAL (08/29/2020 4:08 AM VP PURCHASING) Pathologist [facility] WBC 11.2(H) 3.5 - 10.5 10? 3 /uL 08/29/2020 5:12 AM [facility] RBC 4.27 3.90 - 5.00 10? 6 /uL 08/29/2020 5:12 AM [facility] Hemoglobin 12.3 12.0 - 15.5 g/dL 08/29/2020 5:12 AM [facility] Hematocrit 38.0 35.0 - 45.0 % 08/29/2020 5:12 AM [facility] MCV 89.0 81.0 - 97.0 fL 08/29/2020 5:12 AM [facility] MCH 28.8 28.0 - 34.0 pg 08/29/2020 5:12 AM [facility] MCHC 32.4 32.0 - 36.0 g/dL 08/29/2020 5:12 AM [facility] Platelet Count 380 150 - 400 10? 3 /uL 08/29/2020 5:12 AM [facility] RDW-SD 40.0 36.0 - 50.0 fL 08/29/2020 5:12 AM [facility] RDW-CV 12.4 11.2 - 14.8 % 08/29/2020 5:12 AM [facility] MPV 9.8 9.3 - 12.8 fL 08/29/2020 5:12 AM [facility] nRBC Absolute 0.00 0 10? 3 /uL 08/29/2020 5:12 AM [facility] nRBC Auto 0.0 0 /100 WBC 08/29/2020 5:12 AM [facility] Blood BLOOD SPECIMEN / Unknown Lab Venipuncture / Unknown 08/29/2020 4:08 AM [facility] 08/29/2020 5:00 AM [facility] Dionte Comer MD LAB - HEMATOLOGY ORD ERABLES [address] [address], [facility] [place] [phone] * (ABNORMAL) ALBUMIN BLOOD (08/29/2020 4:08 AM [facility]) Albumin 2.9(L) 3.4 - 5.0 g/dL 08/29/2020 5:28 AM [facility] Blood BLOOD SPECIMEN / Unknown Lab Venipuncture / Unknown 08/29/2020 4:08 AM [facility] 08/29/2020 5:00 AM [facility] Dionte Comer MD LAB - CHEMISTRY ORDE RABHORTENCIA [address] [address], [place] [phone] * (ABNORMAL) BASIC METABOLIC PANEL (CALCIUM TOTAL) (08/29/2020 4:08 AM [facility]) BUN 11 7 - 26 mg/dL 08/29/2020 5:28 AM [facility] Creatinine 0.7 0.6 - 1.2 mg/dL 08/29/2020 5:28 AM [facility] Sodium 142 136 - 145 mmol/L 08/29/2020 5:28 AM [facility] Potassium 3.9 3.5 - 4.5 mmol/L 08/29/2020 5:28 AM [facility] Chloride 103 98 - 107 mmol/L 08/29/2020 5:28 AM [facility] CO2 27 22 - 29 mmol/L 08/29/2020 5:28 AM [facility] Glucose 101 70 - 115 mg/dL 08/29/2020 5:28 AM [facility] Calcium 8.0(L) 8.4 - 10.2 mg/dL 08/29/2020 5:28 AM [facility] Anion Gap 16 8 - 18 08/29/2020 5:28 AM [facility] BUN/Creatinine Ratio 16 7 - 23 08/29/2020 5:28 AM [facility] Osmolality Calculated 294 270 - 300 mOsm/kg 08/29/2020 5:28 AM [facility] eGFR >60 >60 mL/min/1.7 3 m2 08/29/2020 5:28 AM [facility] Blood BLOOD SPECIMEN / Unknown Lab Venipuncture / Unknown 08/29/2020 4:08 AM [facility] 08/29/2020 5:00 AM [facility] Dionte Comer MD LAB - CHEMISTRY ASH [employer]ER [address] [address], [facility] [place] [phone] * PTH INTACT W/O CALCIUM (08/29/2020 4:08 AM [facility]) PTH Intact 10.1 8.0 - 77.0 pg/mL 08/29/2020 5:33 AM [facility] Blood BLOOD SPECIMEN / Unknown Lab Venipuncture / Unknown 08/29/2020 4:08 AM [facility] 08/29/2020 5:00 AM [facility] Dionte Comer MD LAB - CHEMISTRY ASH [employer] [address] [address], [place] [phone] * (ABNORMAL) CALCIUM IONIZED WHOLE BLOOD (08/28/2020 9:42 PM [facility]) Ionized Calcium Whole Blood 1.09 mmol/L 08/28/2020 9:47 PM [facility] Adjusted Ionized Calcium 1.11(L) 1.19 - 1.34 mmol/L 08/28/2020 9:47 PM [facility] pH Whole Blood 7.43 7.35 - 7.45 08/28/2020 9:47 PM [facility] Blood WHOLE BLOOD SPECIMEN / Unknown Lab Venipuncture / Unknown 08/28/2020 9:42 PM [facility] 08/28/2020 9:45 PM [facility] Dionte Comer MD LAB - CHEMISTRY [employer] [address] [address], [facility] [place] [phone] * (ABNORMAL) CALCIUM IONIZED WHOLE BLOOD (08/28/2020 4:05 PM [facility]) Ionized Calcium Whole Blood 1.02 mmol/L 08/28/2020 4:11 PM [facility] Adjusted Ionized Calcium 1.03(L) 1.19 - 1.34 mmol/L 08/28/2020 4:11 PM [facility] pH Whole Blood 7.42 7.35 - 7.45 08/28/2020 4:11 PM [facility] Blood WHOLE BLOOD SPECIMEN / Unknown Lab Venipuncture / Unknown 08/28/2020 4:05 PM [facility] 08/28/2020 4:09 PM [facility] Dionte Comer MD LAB - CHEMISTRY [employer] [address] [address], [facility] [place] [phone] * (ABNORMAL) CALCIUM IONIZED WHOLE BLOOD (08/28/2020 11:54 AM [facility]) Ionized Calcium Whole Blood 1.04 mmol/L 08/28/2020 12:12 PM [facility] Adjusted Ionized Calcium 1.05(L) 1.19 - 1.34 mmol/L 08/28/2020 12:12 PM [facility] pH Whole Blood 7.41 7.35 - 7.45 08/28/2020 12:12 PM [facility] Blood WHOLE BLOOD SPECIMEN / Unknown Lab Venipuncture / Unknown 08/28/2020 11:54 AM [facility] 08/28/2020 12:04 PM [facility] Dionte Comer MD LAB - CHEMISTRY [employer] [address] [address], [place] [phone] * (ABNORMAL) PHOSPHORUS BLOOD (08/28/2020 5:49 AM [facility]) Phosphorus 5.5(H) 2.3 - 4.7 mg/dL 08/28/2020 6:37 AM [facility] Blood BLOOD SPECIMEN / Unknown Lab Venipuncture / Unknown 08/28/2020 5:49 AM [facility] 08/28/2020 6:04 AM [facility] Dionte Comer MD LAB - CHEMISTRY [employer] Performing Organization Address City/[facility]/ZIP Co de Phone Number [address] [address], [place] [phone] * MAGNESIUM BLOOD (08/28/2020 5:49 AM [facility]) Magnesium 2.2 1.6 - 2.6 mg/dL 08/28/2020 6:37 AM [facility] Blood BLOOD SPECIMEN / Unknown Lab Venipuncture / Unknown 08/28/2020 5:49 AM [facility] 08/28/2020 6:04 AM [facility] Dionte Comer MD LAB - CHEMISTRY [employer] [address] [address], [place] [phone] * (ABNORMAL) CBC W/O DIFFERENTIAL (08/28/2020 5:49 AM [facility]) WBC 11.1(H) 3.5 - 10.5 10? 3 /uL 08/28/2020 6:28 AM [facility] RBC 3.99 3.90 - 5.00 10? 6 /uL 08/28/2020 6:28 AM [facility] Hemoglobin 11.6(L) 12.0 - 15.5 g/dL 08/28/2020 6:28 AM [facility] Hematocrit 35.4 35.0 - 45.0 % 08/28/2020 6:28 AM [facility] MCV 88.7 81.0 - 97.0 fL 08/28/2020 6:28 AM [facility] MCH 29.1 28.0 - 34.0 pg 08/28/2020 6:28 AM [facility] MCHC 32.8 32.0 - 36.0 g/dL 08/28/2020 6:28 AM [facility] Platelet Count 332 150 - 400 10? 3 /uL 08/28/2020 6:28 AM [facility] RDW-SD 39.4 36.0 - 50.0 fL 08/28/2020 6:28 AM [facility] RDW-CV 12.2 11.2 - 14.8 % 08/28/2020 6:28 AM [facility] MPV 9.8 9.3 - 12.8 fL 08/28/2020 6:28 AM [facility] nRBC Absolute 0.00 0 10? 3 /uL 08/28/2020 6:28 AM [facility] nRBC Auto 0.0 0 /100 WBC 08/28/2020 6:28 AM [facility] Blood BLOOD SPECIMEN / Unknown Lab Venipuncture / Unknown 08/28/2020 5:49 AM [facility] 08/28/2020 6:03 AM [facility] Dionte Comer MD LAB - HEMATOLOGY ORD ERABLES [facility] [address] [place] [address], [facility] [place] [phone] * (ABNORMAL) ALBUMIN BLOOD (08/28/2020 5:49 AM [facility]) Pathologist [facility] Albumin 2.9(L) 3.4 - 5.0 g/dL 08/28/2020 6:37 AM [facility] Blood BLOOD SPECIMEN / Unknown Lab Venipuncture / Unknown 08/28/2020 5:49 AM [facility] 08/28/2020 6:04 AM [facility] Dionte Comer MD LAB - CHEMISTRY [employer]ER [facility] [address] [place] [address], [facility] [place] [phone] * (ABNORMAL) BASIC METABOLIC PANEL (CALCIUM TOTAL) (08/28/2020 5:49 AM [facility]) Pathologist [facility] BUN 12 7 - 26 mg/dL 08/28/2020 6:37 AM [facility] Creatinine 0.7 0.6 - 1.2 mg/dL 08/28/2020 6:37 AM [facility] Sodium 142 136 - 145 mmol/L 08/28/2020 6:37 AM [facility] Potassium 3.9 3.5 - 4.5 mmol/L 08/28/2020 6:37 AM [facility] Chloride 103 98 - 107 mmol/L 08/28/2020 6:37 AM [facility] CO2 29 22 - 29 mmol/L 08/28/2020 6:37 AM [facility] Glucose 101 70 - 115 mg/dL 08/28/2020 6:37 AM [facility] Calcium 7.3(L) 8.4 - 10.2 mg/dL 08/28/2020 6:37 AM [facility] Anion Gap 14 8 - 18 08/28/2020 6:37 AM [facility] BUN/Creatinine Ratio 17 7 - 23 08/28/2020 6:37 AM [facility] Osmolality Calculated 294 270 - 300 mOsm/kg 08/28/2020 6:37 AM [facility] eGFR >60 >60 mL/min/1.7 3 m2 08/28/2020 6:37 AM [facility] Blood BLOOD SPECIMEN / Unknown Lab Venipuncture / Unknown 08/28/2020 5:49 AM [facility] 08/28/2020 6:04 AM [facility] Dionte Comer MD LAB - CHEMISTRY [employer]SH [employer]ER [address] [address], [place] [phone] * PTH INTACT W/O CALCIUM (08/28/2020 5:49 AM [facility]) PTH Intact 10.7 8.0 - 77.0 pg/mL 08/28/2020 7:17 AM [facility] Blood BLOOD SPECIMEN / Unknown Lab Venipuncture / Unknown 08/28/2020 5:49 AM [facility] 08/28/2020 6:46 AM [facility] Dionte Comer MD LAB - CHEMISTRY [employer]ER Performing Organization Address [facility]/ZIP Co de Phone Number [address] [address], [place] [phone] * (ABNORMAL) CALCIUM IONIZED WHOLE BLOOD (08/28/2020 5:49 AM [facility]) Ionized Calcium Whole Blood 1.04 mmol/L 08/28/2020 6:03 AM [facility] Adjusted Ionized Calcium 1.04(L) 1.19 - 1.34 mmol/L 08/28/2020 6:03 AM [facility] pH Whole Blood 7.40 7.35 - 7.45 08/28/2020 6:03 AM [facility] Blood WHOLE BLOOD SPECIMEN / Unknown Lab Venipuncture / Unknown 08/28/2020 5:49 AM [facility] 08/28/2020 6:01 AM [facility] Dionte Comer MD LAB - CHEMISTRY [employer] Performing Organization Address City/[facility]/ZIP Co de Phone Number [address] [address], [place] [phone] * (ABNORMAL) CALCIUM IONIZED WHOLE BLOOD (08/27/2020 4:53 PM [facility]) Ionized Calcium Whole Blood 1.05 mmol/L 08/27/2020 4:59 PM [facility] Adjusted Ionized Calcium 1.06(L) 1.19 - 1.34 mmol/L 08/27/2020 4:59 PM [facility] pH Whole Blood 7.41 7.35 - 7.45 08/27/2020 4:59 PM [facility] Blood WHOLE BLOOD SPECIMEN / Unknown Lab Venipuncture / Unknown 08/27/2020 4:53 PM [facility] 08/27/2020 4:57 PM [facility] Dionte Comer MD LAB - CHEMISTRY ORDE OWEN [address] [address], [place] [phone] * (ABNORMAL) GLUCOSE - POINT OF CARE (08/27/2020 4:27 PM [facility]) Glucose WB/POC 157(H) 70 - 115 mg/dL 08/27/2020 4:32 PM [facility] Specimen Type Arterial/C apillary 08/27/2020 4:32 PM [facility] Blood BLOOD SPECIMEN / Unknown 08/27/2020 4:27 PM [facility] 08/27/2020 4:32 PM [facility] Dionte Comer MD LAB - POINT OF CARE ORDERABLES [facility] [address] [place] [address], [place] [phone] * (ABNORMAL) CALCIUM IONIZED WHOLE BLOOD (08/27/2020 11:41 AM [facility]) Ionized Calcium Whole Blood 1.03 mmol/L 08/27/2020 11:53 AM [facility] Adjusted Ionized Calcium 1.03(L) 1.19 - 1.34 mmol/L 08/27/2020 11:53 AM [facility] pH Whole Blood 7.40 7.35 - 7.45 08/27/2020 11:53 AM [facility] Blood WHOLE BLOOD SPECIMEN / Unknown Lab Venipuncture / Unknown 08/27/2020 11:41 AM [facility] 08/27/2020 11:48 AM [facility] Dionte Comer MD LAB - CHEMISTRY [employer]ER Performing Organization Address City/[facility]/ZIP Co de Phone Number [address] [address], [place] [phone] * (ABNORMAL) PHOSPHORUS BLOOD (08/27/2020 5:48 AM [facility]) Phosphorus 5.4(H) 2.3 - 4.7 mg/dL 08/27/2020 6:22 AM [facility] Blood BLOOD SPECIMEN / Unknown Lab Venipuncture / Unknown 08/27/2020 5:48 AM [facility] 08/27/2020 5:57 AM [facility] Dionte Comer MD LAB - CHEMISTRY [employer]ER Performing Organization Address [facility]/ZIP Co de Phone Number [address] [address], [place] [phone] * MAGNESIUM BLOOD (08/27/2020 5:48 AM [facility]) Magnesium 2.1 1.6 - 2.6 mg/dL 08/27/2020 6:22 AM [facility] Blood BLOOD SPECIMEN / Unknown Lab Venipuncture / Unknown 08/27/2020 5:48 AM [facility] 08/27/2020 5:57 AM [facility] Dionte Comer MD LAB - CHEMISTRY [employer]ER Performing Organization Address City/[facility]/ZIP Co de Phone Number [address] [address], [place] [phone] * (ABNORMAL) CBC W/O DIFFERENTIAL (08/27/2020 5:48 AM [facility]) WBC 9.5 3.5 - 10.5 10? 3 /uL 08/27/2020 6:18 AM [facility] RBC 3.84(L) 3.90 - 5.00 10? 6 /uL 08/27/2020 6:18 AM [facility] Hemoglobin 11.3(L) 12.0 - 15.5 g/dL 08/27/2020 6:18 AM [facility] Hematocrit 34.4(L) 35.0 - 45.0 % 08/27/2020 6:18 AM [facility] MCV 89.6 81.0 - 97.0 fL 08/27/2020 6:18 AM [facility] MCH 29.4 28.0 - 34.0 pg 08/27/2020 6:18 AM [facility] MCHC 32.8 32.0 - 36.0 g/dL 08/27/2020 6:18 AM [facility] Platelet Count 327 150 - 400 10? 3 /uL 08/27/2020 6:18 AM [facility] RDW-SD 39.7 36.0 - 50.0 fL 08/27/2020 6:18 AM [facility] RDW-CV 12.2 11.2 - 14.8 % 08/27/2020 6:18 AM [facility] MPV 9.6 9.3 - 12.8 fL 08/27/2020 6:18 AM [facility] nRBC Absolute 0.00 0 10? 3 /uL 08/27/2020 6:18 AM [facility] nRBC Auto 0.0 0 /100 WBC 08/27/2020 6:18 AM [facility] Blood BLOOD SPECIMEN / Unknown Lab Venipuncture / Unknown 08/27/2020 5:48 AM [facility] 08/27/2020 5:56 AM [facility] Dionte Comer MD LAB - HEMATOLOGY ORD ERABLES [address] [address], [facility] [place] [phone] * (ABNORMAL) ALBUMIN BLOOD (08/27/2020 5:48 AM [facility]) Albumin 2.8(L) 3.4 - 5.0 g/dL 08/27/2020 6:22 AM [facility] Blood BLOOD SPECIMEN / Unknown Lab Venipuncture / Unknown 08/27/2020 5:48 AM [facility] 08/27/2020 5:57 AM [facility] Dionte Comer MD LAB - CHEMISTRY [employer]SH [employer]ER [facility] [address] [place] [address], [facility] [place] [phone] * (ABNORMAL) BASIC METABOLIC PANEL (CALCIUM TOTAL) (08/27/2020 5:48 AM [facility]) BUN 9 7 - 26 mg/dL 08/27/2020 6:22 AM [facility] Creatinine 0.6 0.6 - 1.2 mg/dL 08/27/2020 6:22 AM [facility] Sodium 143 136 - 145 mmol/L 08/27/2020 6:22 AM [facility] Potassium 3.7 3.5 - 4.5 mmol/L 08/27/2020 6:22 AM [facility] Chloride 99 98 - 107 mmol/L 08/27/2020 6:22 AM [facility] CO2 32(H) 22 - 29 mmol/L 08/27/2020 6:22 AM [facility] Glucose 109 70 - 115 mg/dL 08/27/2020 6:22 AM [facility] Calcium 7.4(L) 8.4 - 10.2 mg/dL 08/27/2020 6:22 AM [facility] Anion Gap 16 8 - 18 08/27/2020 6:22 AM [facility] BUN/Creatinine Ratio 15 7 - 23 08/27/2020 6:22 AM [facility] Osmolality Calculated 295 270 - 300 mOsm/kg 08/27/2020 6:22 AM [facility] eGFR >60 >60 mL/min/1.7 3 m2 08/27/2020 6:22 AM [facility] Blood BLOOD SPECIMEN / Unknown Lab Venipuncture / Unknown 08/27/2020 5:48 AM [facility] 08/27/2020 5:57 AM [facility] Dionte Comer MD LAB - CHEMISTRY ASH [employer]ER [address] [address], [facility] [place] [phone] * PTH INTACT W/O CALCIUM (08/27/2020 5:48 AM [facility]) PTH Intact 8.2 8.0 - 77.0 pg/mL 08/27/2020 6:27 AM [facility] Blood BLOOD SPECIMEN / Unknown Lab Venipuncture / Unknown 08/27/2020 5:48 AM [facility] 08/27/2020 5:56 AM [facility] Dionte Comer MD LAB - CHEMISTRY ASH [employer]ER Performing Organization Address City/[facility]/ZIP Co de Phone Number [address] [address], [facility] [place] [phone] * (ABNORMAL) CALCIUM IONIZED WHOLE BLOOD (08/27/2020 5:48 AM [facility]) Ionized Calcium Whole Blood 1.01 mmol/L 08/27/2020 6:12 AM [facility] Adjusted Ionized Calcium 1.02(L) 1.19 - 1.34 mmol/L 08/27/2020 6:12 AM [facility] pH Whole Blood 7.41 7.35 - 7.45 08/27/2020 6:12 AM [facility] Blood WHOLE BLOOD SPECIMEN / Unknown Lab Venipuncture / Unknown 08/27/2020 5:48 AM [facility] 08/27/2020 5:54 AM [facility] Dionte Comer MD LAB - CHEMISTRY ASH [employer]ER [address] [address], [facility] [place] [phone] * (ABNORMAL) CALCIUM IONIZED WHOLE BLOOD (08/26/2020 4:20 PM [facility]) Ionized Calcium Whole Blood 1.05 mmol/L 08/26/2020 4:26 PM [facility] Adjusted Ionized Calcium 1.03(L) 1.19 - 1.34 mmol/L 08/26/2020 4:26 PM [facility] pH Whole Blood 7.36 7.35 - 7.45 08/26/2020 4:26 PM [facility] Blood WHOLE BLOOD SPECIMEN / Unknown Lab Venipuncture / Unknown 08/26/2020 4:20 PM [facility] 08/26/2020 4:23 PM [facility] Dionte Comer MD LAB - CHEMISTRY ASH WE[employer]ER [address] [address], [facility] [place] [phone] * (ABNORMAL) CALCIUM IONIZED WHOLE BLOOD (08/26/2020 11:35 AM [facility]) Ionized Calcium Whole Blood 1.01 mmol/L 08/26/2020 11:41 AM [facility] Adjusted Ionized Calcium 0.99(L) 1.19 - 1.34 mmol/L 08/26/2020 11:41 AM [facility] pH Whole Blood 7.36 7.35 - 7.45 08/26/2020 11:41 AM [facility] Blood WHOLE BLOOD SPECIMEN / Unknown Lab Venipuncture / Unknown 08/26/2020 11:35 AM [facility] 08/26/2020 11:39 AM [facility] Dionte Comer MD LAB - CHEMISTRY ASH WE[employer]ER [address] [address], [place] [phone] * (ABNORMAL) CALCIUM IONIZED WHOLE BLOOD (08/26/2020 6:43 AM [facility]) Ionized Calcium Whole Blood 1.00 mmol/L 08/26/2020 6:50 AM [facility] Adjusted Ionized Calcium 1.01(L) 1.19 - 1.34 mmol/L 08/26/2020 6:50 AM [facility] pH Whole Blood 7.42 7.35 - 7.45 08/26/2020 6:50 AM [facility] Blood WHOLE BLOOD SPECIMEN / Unknown Lab Venipuncture / Unknown 08/26/2020 6:43 AM [facility] 08/26/2020 6:48 AM [facility] Dionte Comer MD LAB - CHEMISTRY ASH [employer]ER Performing Organization Address City/[facility]/ZIP Co de Phone Number [address] [address], [facility] [place] [phone] * (ABNORMAL) PHOSPHORUS BLOOD (08/26/2020 12:41 AM [facility]) Phosphorus 4.8(H) 2.3 - 4.7 mg/dL 08/26/2020 1:15 AM [facility] Blood BLOOD SPECIMEN / Unknown Lab Venipuncture / Unknown 08/26/2020 12:41 AM [facility] 08/26/2020 12:47 AM [facility] Dionte Comer MD LAB - CHEMISTRY ASH WE[employer]ER Performing Organization Address City/[facility]/ZIP Co de Phone Number [address] [address], [place] [phone] * MAGNESIUM BLOOD (08/26/2020 12:41 AM [facility]) Magnesium 1.8 1.6 - 2.6 mg/dL 08/26/2020 1:15 AM [facility] Blood BLOOD SPECIMEN / Unknown Lab Venipuncture / Unknown 08/26/2020 12:41 AM [facility] 08/26/2020 12:47 AM [facility] Dionte Comer MD LAB - CHEMISTRY ASH [employer]ER Performing Organization Address City/[facility]/ZIP Co de Phone Number [address] [address], [place] [phone] * CBC W/O DIFFERENTIAL (08/26/2020 12:41 AM [facility]) WBC 10.2 3.5 - 10.5 10? 3 /uL 08/26/2020 12:54 AM [facility] RBC 4.31 3.90 - 5.00 10? 6 /uL 08/26/2020 12:54 AM [facility] Hemoglobin 12.6 12.0 - 15.5 g/dL 08/26/2020 12:54 AM [facility] Hematocrit 38.4 35.0 - 45.0 % 08/26/2020 12:54 AM [facility] MCV 89.1 81.0 - 97.0 fL 08/26/2020 12:54 AM [facility] MCH 29.2 28.0 - 34.0 pg 08/26/2020 12:54 AM [facility] MCHC 32.8 32.0 - 36.0 g/dL 08/26/2020 12:54 AM [facility] Platelet Count 328 150 - 400 10? 3 /uL 08/26/2020 12:54 AM [facility] RDW-SD 39.5 36.0 - 50.0 fL 08/26/2020 12:54 AM [facility] RDW-CV 12.0 11.2 - 14.8 % 08/26/2020 12:54 AM [facility] MPV 9.4 9.3 - 12.8 fL 08/26/2020 12:54 AM [facility] nRBC Absolute 0.00 0 10? 3 /uL 08/26/2020 12:54 AM [facility] nRBC Auto 0.0 0 /100 WBC 08/26/2020 12:54 AM [facility] Blood BLOOD SPECIMEN / Unknown Lab Venipuncture / Unknown 08/26/2020 12:41 AM [facility] 08/26/2020 12:47 AM [facility] Dionte Comer MD LAB - HEMATOLOGY ORD ERABLES [facility] [address] [place] [address], [facility] [place] [phone] * (ABNORMAL) ALBUMIN BLOOD (08/26/2020 12:41 AM [facility]) Albumin 2.8(L) 3.4 - 5.0 g/dL 08/26/2020 1:15 AM [facility] Blood BLOOD SPECIMEN / Unknown Lab Venipuncture / Unknown 08/26/2020 12:41 AM [facility] 08/26/2020 12:47 AM [facility] Dionte Comer MD LAB - CHEMISTRY ASH WEAVER Performing Organization Address City/[facility] Co de Phone Number [facility] [address] [place] [address] [phone] * (ABNORMAL) BASIC METABOLIC PANEL (CALCIUM TOTAL) (08/26/2020 12:41 AM [facility]) Pathologist [facility] BUN 9 7 - 26 mg/dL 08/26/2020 1:15 AM [facility] Creatinine 0.6 0.6 - 1.2 mg/dL 08/26/2020 1:15 AM [facility] Sodium 144 136 - 145 mmol/L 08/26/2020 1:15 AM [facility] Potassium 3.6 3.5 - 4.5 mmol/L 08/26/2020 1:15 AM [facility] Chloride 99 98 - 107 mmol/L 08/26/2020 1:15 AM [facility] CO2 33(H) 22 - 29 mmol/L 08/26/2020 1:15 AM [facility] Glucose 127(H) 70 - 115 mg/dL 08/26/2020 1:15 AM [facility] Calcium 7.4(L) 8.4 - 10.2 mg/dL 08/26/2020 1:15 AM [facility] Anion Gap 16 8 - 18 08/26/2020 1:15 AM [facility] BUN/Creatinine Ratio 15 7 - 23 08/26/2020 1:15 AM [facility] Osmolality Calculated 298 270 - 300 mOsm/kg 08/26/2020 1:15 AM [facility] eGFR >60 >60 mL/min/1.7 3 m2 08/26/2020 1:15 AM [facility] Blood BLOOD SPECIMEN / Unknown Lab Venipuncture / Unknown 08/26/2020 12:41 AM [facility] 08/26/2020 12:47 AM [facility] Dionte Comer MD LAB - CHEMISTRY [facility] [address] [address], [place] [phone] * (ABNORMAL) PTH INTACT W/O CALCIUM (08/26/2020 12:41 AM [facility]) PTH Intact 4.4(L) 8.0 - 77.0 pg/mL 08/26/2020 1:31 AM [facility] Blood BLOOD SPECIMEN / Unknown Lab Venipuncture / Unknown 08/26/2020 12:41 AM [facility] 08/26/2020 12:47 AM [facility] Dionte Comer MD LAB - CHEMISTRY [facility] Performing Organization Address [facility]/ZIP Co de Phone Number [address] [address], [place] [phone] * (ABNORMAL) CALCIUM IONIZED WHOLE BLOOD (08/26/2020 12:41 AM [facility]) Ionized Calcium Whole Blood 1.03 mmol/L 08/26/2020 1:08 AM [facility] Adjusted Ionized Calcium 1.01(L) 1.19 - 1.34 mmol/L 08/26/2020 1:08 AM [facility] pH Whole Blood 7.36 7.35 - 7.45 08/26/2020 1:08 AM [facility] Blood WHOLE BLOOD SPECIMEN / Unknown Lab Venipuncture / Unknown 08/26/2020 12:41 AM [facility] 08/26/2020 12:47 AM [facility] Dionte Comer MD LAB - CHEMISTRY [facility] [address] [address], [place] [phone] * (ABNORMAL) CALCIUM IONIZED WHOLE BLOOD (08/25/2020 4:06 PM [facility]) Ionized Calcium Whole Blood 1.01 mmol/L 08/25/2020 4:13 PM [facility] Adjusted Ionized Calcium 1.03(L) 1.19 - 1.34 mmol/L 08/25/2020 4:13 PM [facility] pH Whole Blood 7.43 7.35 - 7.45 08/25/2020 4:13 PM [facility] Blood WHOLE BLOOD SPECIMEN / Unknown Lab Venipuncture / Unknown 08/25/2020 4:06 PM [facility] 08/25/2020 4:10 PM [facility] Dionte Comer MD LAB - CHEMISTRY [facility] [address] [address], [place] [phone] * CALCIUM URINE RANDOM (08/25/2020 1:12 PM [facility]) Pathologist [facility] Calcium Random Urine 5.5 Not Established mg/dL 08/25/2020 1:41 PM [facility] Urine URINE SPECIMEN OBTAINED BY CLEAN CATCH PROCEDURE / Unknown Collection / Unknown 08/25/2020 1:12 PM [facility] 08/25/2020 1:32 PM [facility] Dionte Comer MD LAB - URINE CHEMISTR Y ORDERABLES [address] [address], [place] [phone] * (ABNORMAL) CALCIUM IONIZED WHOLE BLOOD (08/25/2020 10:53 AM [facility]) Ionized Calcium Whole Blood 1.05 mmol/L 08/25/2020 11:09 AM [facility] Adjusted Ionized Calcium 1.01(L) 1.19 - 1.34 mmol/L 08/25/2020 11:09 AM [facility] pH Whole Blood 7.33(L) 7.35 - 7.45 08/25/2020 11:09 AM [facility] Blood WHOLE BLOOD SPECIMEN / Unknown Lab Venipuncture / Unknown 08/25/2020 10:53 AM [facility] 08/25/2020 11:07 AM [facility] Dionte Comer MD LAB - CHEMISTRY [facility] [address] [address], [place] [phone] * (ABNORMAL) CALCIUM IONIZED WHOLE BLOOD (08/25/2020 9:04 AM [facility]) Ionized Calcium Whole Blood 1.00 mmol/L 08/25/2020 9:26 AM [facility] Adjusted Ionized Calcium 1.00(L) 1.19 - 1.34 mmol/L 08/25/2020 9:26 AM [facility] pH Whole Blood 7.40 7.35 - 7.45 08/25/2020 9:26 AM [facility] Blood WHOLE BLOOD SPECIMEN / Unknown Lab Venipuncture / Unknown 08/25/2020 9:04 AM [facility] 08/25/2020 9:24 AM [facility] Dionte Comer MD LAB - CHEMISTRY [facility] Performing Organization Address City/[facility]/ZIP Co de Phone Number [address] [address], [place] [phone] * (ABNORMAL) PHOSPHORUS BLOOD (08/25/2020 4:16 AM [facility]) Phosphorus 6.0(H) 2.3 - 4.7 mg/dL 08/25/2020 5:09 AM [facility] PURCH[facility] Blood BLOOD SPECIMEN / Unknown Venipuncture / Unknown 08/25/2020 4:16 AM VP PURCHASING 08/25/2020 4:42 AM [facility]ING Dionte Comer MD LAB - CHEMISTRY [facility] [address] [address], [place] [phone] * MAGNESIUM BLOOD (08/25/2020 4:16 AM [facility]CHASING) Magnesium 1.9 1.6 - 2.6 mg/dL 08/25/2020 5:09 AM [facility] Blood BLOOD SPECIMEN / Unknown Venipuncture / Unknown 08/25/2020 4:16 AM [facility]CHASING 08/25/2020 4:42 AM [facility]CHASING Dionte Comer MD LAB - CHEMISTRY [facility] Organization Address City/State/[facility] Co de Phone Number [facility] [address] [place] [address], [facility] [place] [phone] * CBC W/O DIFFERENTIAL (08/25/2020 4:16 AM [facility]) Pathologist [facility] WBC 9.6 3.5 - 10.5 10? 3 /uL 08/25/2020 4:52 AM [facility] RBC 4.53 3.90 - 5.00 10? 6 /uL 08/25/2020 4:52 AM [facility] Hemoglobin 13.1 12.0 - 15.5 g/dL 08/25/2020 4:52 AM [facility] Hematocrit 40.6 35.0 - 45.0 % 08/25/2020 4:52 AM [facility] MCV 89.6 81.0 - 97.0 fL 08/25/2020 4:52 AM [facility] MCH 28.9 28.0 - 34.0 pg 08/25/2020 4:52 AM [facility] MCHC 32.3 32.0 - 36.0 g/dL 08/25/2020 4:52 AM [facility] Platelet Count 327 150 - 400 10? 3 /uL 08/25/2020 4:52 AM [facility] RDW-SD 40.0 36.0 - 50.0 fL 08/25/2020 4:52 AM [facility] RDW-CV 12.2 11.2 - 14.8 % 08/25/2020 4:52 AM [facility] MPV 10.1 9.3 - 12.8 fL 08/25/2020 4:52 AM [facility] nRBC Absolute 0.00 0 10? 3 /uL 08/25/2020 4:52 AM [facility] nRBC Auto 0.0 0 /100 WBC 08/25/2020 4:52 AM [facility] Blood BLOOD SPECIMEN / Unknown Venipuncture / Unknown 08/25/2020 4:16 AM [facility] 08/25/2020 4:42 AM [facility]ING Dionte Comer MD LAB - HEMATOLOGY ORD ERABLES Performing Organization Address City/[facility]/ZIP Co de Phone Number [address] [address], [facility] [place] [phone] * (ABNORMAL) ALBUMIN BLOOD (08/25/2020 4:16 AM [facility]) Pathologist [facility] Albumin 2.8(L) 3.4 - 5.0 g/dL 08/25/2020 5:09 AM [facility] Blood BLOOD SPECIMEN / Unknown Venipuncture / Unknown 08/25/2020 4:16 AM [facility]ING 08/25/2020 4:42 AM [facility]CHASING Dionte Comer MD LAB - CHEMISTRY ORDE RABHORTENCIA Performing Organization Address City/[facility]/ZIP Co de Phone Number [address] [address], [facility] [place] [phone] * (ABNORMAL) BASIC METABOLIC PANEL (CALCIUM TOTAL) (08/25/2020 4:16 AM [facility]) Pathologist [facility] BUN 13 7 - 26 mg/dL 08/25/2020 5:09 AM [facility] Creatinine 0.7 0.6 - 1.2 mg/dL 08/25/2020 5:09 AM [facility] Sodium 141 136 - 145 mmol/L 08/25/2020 5:09 AM [facility] Potassium 3.6 3.5 - 4.5 mmol/L 08/25/2020 5:09 AM [facility] Chloride 97(L) 98 - 107 mmol/L 08/25/2020 5:09 AM [facility] CO2 32(H) 22 - 29 mmol/L 08/25/2020 5:09 AM [facility] Glucose 116(H) 70 - 115 mg/dL 08/25/2020 5:09 AM [facility] Calcium 7.9(L) 8.4 - 10.2 mg/dL 08/25/2020 5:09 AM [facility] Anion Gap 16 8 - 18 08/25/2020 5:09 AM [facility] BUN/Creatinine Ratio 19 7 - 23 08/25/2020 5:09 AM [facility] Osmolality Calculated 293 270 - 300 mOsm/kg 08/25/2020 5:09 AM [facility] eGFR >60 >60 mL/min/1.7 3 m2 08/25/2020 5:09 AM [facility] Blood BLOOD SPECIMEN / Unknown Venipuncture / Unknown 08/25/2020 4:16 AM [facility]ING 08/25/2020 4:42 AM [facility]ING Dionte Comer MD LAB - CHEMISTRY [employer] [employer] Performing Organization Address City/[facility]/ZIP Co de Phone Number [address] [address], [facility] [place] [phone] * (ABNORMAL) PTH INTACT W/O CALCIUM (08/25/2020 4:16 AM [facility]) PTH Intact <4.0(L) 8.0 - 77.0 pg/mL 08/25/2020 5:11 AM [facility] Blood BLOOD SPECIMEN / Unknown Venipuncture / Unknown 08/25/2020 4:16 AM [facility]ING 08/25/2020 4:42 AM [facility]ING Dionte Comer MD LAB - CHEMISTRY [facility] [employer] [address] [address], [place] [phone] * (ABNORMAL) CALCIUM IONIZED WHOLE BLOOD (08/25/2020 4:16 AM [facility]) Ionized Calcium Whole Blood 1.04 mmol/L 08/25/2020 4:43 AM [facility] Adjusted Ionized Calcium 1.01(L) 1.19 - 1.34 mmol/L 08/25/2020 4:43 AM [facility] pH Whole Blood 7.35 7.35 - 7.45 08/25/2020 4:43 AM [facility] Blood WHOLE BLOOD SPECIMEN / Unknown Venipuncture / Unknown 08/25/2020 4:16 AM [facility] 08/25/2020 4:39 AM [facility] Dionte Comer MD LAB - CHEMISTRY [facility] [address] [address], [facility] [place] [phone] * (ABNORMAL) CALCIUM IONIZED WHOLE BLOOD (08/24/2020 4:50 PM [facility]) Ionized Calcium Whole Blood 1.03 mmol/L 08/24/2020 5:01 PM [facility] Adjusted Ionized Calcium 1.05(L) 1.19 - 1.34 mmol/L 08/24/2020 5:01 PM [facility] pH Whole Blood 7.43 7.35 - 7.45 08/24/2020 5:01 PM [facility] Blood WHOLE BLOOD SPECIMEN / Unknown Venipuncture / Unknown 08/24/2020 4:50 PM [facility]ING 08/24/2020 4:59 PM [facility]ASING Dionte Comer MD LAB - CHEMISTRY [facility] [address] [address], [facility] [place] [phone] * (ABNORMAL) CALCIUM IONIZED WHOLE BLOOD (08/24/2020 10:42 AM [facility]) Ionized Calcium Whole Blood 1.04 mmol/L 08/24/2020 10:49 AM [facility] Adjusted Ionized Calcium 1.01(L) 1.19 - 1.34 mmol/L 08/24/2020 10:49 AM [facility] pH Whole Blood 7.35 7.35 - 7.45 08/24/2020 10:49 AM [facility] Blood WHOLE BLOOD SPECIMEN / Unknown Venipuncture / Unknown 08/24/2020 10:42 AM [facility]ING 08/24/2020 10:47 AM [facility] Dionte Comer MD LAB - CHEMISTRY [employer] [employer] Performing Organization Address City/[facility]/ZIP Co de Phone Number [address] [address], [place] [phone] * (ABNORMAL) CALCIUM IONIZED WHOLE BLOOD (08/24/2020 4:17 AM [facility]) Ionized Calcium Whole Blood 1.10 mmol/L 08/24/2020 4:35 AM [facility] Adjusted Ionized Calcium 1.08(L) 1.19 - 1.34 mmol/L 08/24/2020 4:35 AM [facility] pH Whole Blood 7.36 7.35 - 7.45 08/24/2020 4:35 AM [facility] Blood WHOLE BLOOD SPECIMEN / Unknown Venipuncture / Unknown 08/24/2020 4:17 AM [facility]ING 08/24/2020 4:33 AM [facility] Dionte Comer MD LAB - CHEMISTRY [employer] [employer] Performing Organization Address City/[facility]/ZIP Co de Phone Number [address] [address], [place] [phone] * CALCIUM URINE RANDOM (08/24/2020 2:48 AM [facility]) Calcium Random Urine 13.6 Not Established mg/dL 08/24/2020 3:17 AM [facility] Urine URINE SPECIMEN OBTAINED BY CLEAN CATCH PROCEDURE / Unknown Collection / Unknown 08/24/2020 2:48 AM [facility]ASING 08/24/2020 3:09 AM [facility] Dionte Comer MD LAB - URINE CHEMISTR Y ORDERABLES [address] [address], [place] [phone] * (ABNORMAL) ALBUMIN BLOOD (08/24/2020 12:05 AM [facility]) Albumin 2.9(L) 3.4 - 5.0 g/dL 08/24/2020 12:55 AM [facility] Blood BLOOD SPECIMEN / Unknown Venipuncture / Unknown 08/24/2020 12:05 AM [facility]ING 08/24/2020 12:29 AM [facility] Dionte Comer MD LAB - CHEMISTRY [facility] [address] [address], [place] [phone] * (ABNORMAL) PTH INTACT W/O CALCIUM (08/24/2020 12:05 AM [facility]) PTH Intact <4.0(L) 8.0 - 77.0 pg/mL 08/24/2020 1:04 AM [facility] Blood BLOOD SPECIMEN / Unknown Venipuncture / Unknown 08/24/2020 12:05 AM [facility]ASING 08/24/2020 12:29 AM [facility]ASING Dionte Comer MD LAB - CHEMISTRY [facility] [employer] Performing Organization Address [facility]/ZIP Co de Phone Number [address] [address], [place] [phone] * (ABNORMAL) PHOSPHORUS BLOOD (08/24/2020 12:05 AM [facility]AS[facility]) Phosphorus 6.0(H) 2.3 - 4.7 mg/dL 08/24/2020 12:55 AM [facility] Blood BLOOD SPECIMEN / Unknown Venipuncture / Unknown 08/24/2020 12:05 AM [facility]CHASING 08/24/2020 12:29 AM [facility]ASING Dionte Comer MD LAB - CHEMISTRY [employer] [employer] Performing Organization Address City/[facility]/ZIP Co de Phone Number [address] [address], [place] [phone] * (ABNORMAL) CBC W/O DIFFERENTIAL (08/24/2020 12:05 AM [facility]) WBC 11.6(H) 3.5 - 10.5 10? 3 /uL 08/24/2020 12:58 AM [facility] RBC 4.28 3.90 - 5.00 10? 6 /uL 08/24/2020 12:58 AM [facility] Hemoglobin 12.5 12.0 - 15.5 g/dL 08/24/2020 12:58 AM [facility] Hematocrit 37.8 35.0 - 45.0 % 08/24/2020 12:58 AM [facility] MCV 88.3 81.0 - 97.0 fL 08/24/2020 12:58 AM [facility] MCH 29.2 28.0 - 34.0 pg 08/24/2020 12:58 AM [facility] MCHC 33.1 32.0 - 36.0 g/dL 08/24/2020 12:58 AM [facility] Platelet Count 282 150 - 400 10? 3 /uL 08/24/2020 12:58 AM [facility] RDW-SD 39.6 36.0 - 50.0 fL 08/24/2020 12:58 AM [facility] RDW-CV 12.3 11.2 - 14.8 % 08/24/2020 12:58 AM [facility] MPV 10.1 9.3 - 12.8 fL 08/24/2020 12:58 AM [facility] nRBC Absolute 0.00 0 10? 3 /uL 08/24/2020 12:58 AM [facility] nRBC Auto 0.0 0 /100 WBC 08/24/2020 12:58 AM [facility] Blood BLOOD SPECIMEN / Unknown Venipuncture / Unknown 08/24/2020 12:05 AM [facility]ING 08/24/2020 12:25 AM [facility] Dionte Comer MD LAB - HEMATOLOGY ORD ERABLES [facility] [address] [place] [address], [facility] [place] [phone] * (ABNORMAL) BASIC METABOLIC PANEL (CALCIUM TOTAL) (08/24/2020 12:05 AM [facility]) Pathologist [facility] BUN 8 7 - 26 mg/dL 08/24/2020 12:55 AM [facility] Creatinine 0.5(L) 0.6 - 1.2 mg/dL 08/24/2020 12:55 AM [facility] Sodium 142 136 - 145 mmol/L 08/24/2020 12:55 AM [facility] Potassium 3.3(L) 3.5 - 4.5 mmol/L 08/24/2020 12:55 AM [facility] Chloride 96(L) 98 - 107 mmol/L 08/24/2020 12:55 AM [facility] CO2 34(H) 22 - 29 mmol/L 08/24/2020 12:55 AM [facility] Glucose 112 70 - 115 mg/dL 08/24/2020 12:55 AM [facility] Calcium 8.3(L) 8.4 - 10.2 mg/dL 08/24/2020 12:55 AM [facility] Anion Gap 15 8 - 18 08/24/2020 12:55 AM [facility] BUN/Creatinine Ratio 16 7 - 23 08/24/2020 12:55 AM [facility] Osmolality Calculated 293 270 - 300 mOsm/kg 08/24/2020 12:55 AM [facility] eGFR >60 >60 mL/min/1.7 3 m2 08/24/2020 12:55 AM [facility] Blood BLOOD SPECIMEN / Unknown Venipuncture / Unknown 08/24/2020 12:05 AM [facility] 08/24/2020 12:29 AM [facility] Dionte Comer MD LAB - CHEMISTRY [facility] [employer] Organization Address City/State/ZIP Co de Phone Number [facility] [address] [place] [address], [facility] [place] [phone] * (ABNORMAL) CALCIUM IONIZED WHOLE BLOOD (08/24/2020 12:05 AM [facility]) Pathologist [facility] Ionized Calcium Whole Blood 1.11 mmol/L 08/24/2020 12:28 AM [facility] Adjusted Ionized Calcium 1.09(L) 1.19 - 1.34 mmol/L 08/24/2020 12:28 AM [facility] pH Whole Blood 7.36 7.35 - 7.45 08/24/2020 12:28 AM [facility] Blood WHOLE BLOOD SPECIMEN / Unknown Venipuncture / Unknown 08/24/2020 12:05 AM [facility] 08/24/2020 12:25 AM [facility] Dionte Comer MD LAB - CHEMISTRY [employer] [employer] [address] [address], [employer] [phone] * (ABNORMAL) CALCIUM IONIZED WHOLE BLOOD (08/23/2020 5:31 PM [facility]) Ionized Calcium Whole Blood 1.95 mmol/L 08/23/2020 5:40 PM [facility] Adjusted Ionized Calcium 1.94(H) 1.19 - 1.34 mmol/L 08/23/2020 5:40 PM [facility] pH Whole Blood 7.39 7.35 - 7.45 08/23/2020 5:40 PM [facility] Blood WHOLE BLOOD SPECIMEN / Unknown Venipuncture / Unknown 08/23/2020 5:31 PM [facility] 08/23/2020 5:38 PM [facility] Dionte Comer MD LAB - CHEMISTRY SAH WEAVER [address] [address], [place] [phone] * MAGNESIUM BLOOD (08/23/2020 10:49 AM [facility]) Magnesium 1.8 1.6 - 2.6 mg/dL 08/23/2020 11:31 AM [facility] Blood BLOOD SPECIMEN / Unknown Venipuncture / Unknown 08/23/2020 10:49 AM [facility] 08/23/2020 11:00 AM [facility] Dionte Comer MD LAB - CHEMISTRY [employer] [employer] [address] [address], [facility] [place] [phone] * (ABNORMAL) CALCIUM IONIZED WHOLE BLOOD (08/23/2020 10:49 AM [facility]) Ionized Calcium Whole Blood 0.97 mmol/L 08/23/2020 10:59 AM [facility] Adjusted Ionized Calcium 0.95(L) 1.19 - 1.34 mmol/L 08/23/2020 10:59 AM [facility] pH Whole Blood 7.36 7.35 - 7.45 08/23/2020 10:59 AM [facility] Blood WHOLE BLOOD SPECIMEN / Unknown Venipuncture / Unknown 08/23/2020 10:49 AM [facility] 08/23/2020 10:57 AM [facility] Dionte Comer MD LAB - CHEMISTRY [employer] Performing Organization Address City/[facility]/ZIP Co de Phone Number [address] [address], [facility] [place] [phone] * CALCIUM URINE RANDOM (08/23/2020 5:04 AM [facility]) Calcium Random Urine 8.3 Not Established mg/dL 08/23/2020 5:29 AM [facility] Urine URINE SPECIMEN OBTAINED BY CLEAN CATCH PROCEDURE / Unknown Collection / Unknown 08/23/2020 5:04 AM [facility] 08/23/2020 5:20 AM [facility] Dionte Comer MD LAB - URINE CHEMISTR Y ORDERABLES [address] [address], [facility] [place] [phone] * (ABNORMAL) BASIC METABOLIC PANEL (CALCIUM TOTAL) (08/23/2020 4:28 AM [facility]) BUN 7 7 - 26 mg/dL 08/23/2020 10:07 AM [facility] Creatinine 0.5(L) 0.6 - 1.2 mg/dL 08/23/2020 10:07 AM [facility] Sodium 142 136 - 145 mmol/L 08/23/2020 10:07 AM [facility] Potassium 3.5 3.5 - 4.5 mmol/L 08/23/2020 10:07 AM [facility] Chloride 98 98 - 107 mmol/L 08/23/2020 10:07 AM [facility] CO2 32(H) 22 - 29 mmol/L 08/23/2020 10:07 AM [facility] Glucose 99 70 - 115 mg/dL 08/23/2020 10:07 AM [facility] Calcium 7.3(L) 8.4 - 10.2 mg/dL 08/23/2020 10:07 AM [facility] Anion Gap 16 8 - 18 08/23/2020 10:07 AM [facility] BUN/Creatinine Ratio 14 7 - 23 08/23/2020 10:07 AM [facility] Osmolality Calculated 292 270 - 300 mOsm/kg 08/23/2020 10:07 AM [facility] eGFR >60 >60 mL/min/1.7 3 m2 08/23/2020 10:07 AM [facility] Blood BLOOD SPECIMEN / Unknown Venipuncture / Unknown 08/23/2020 4:28 AM [facility] 08/23/2020 4:35 AM [facility] Dionte Comer MD LAB - CHEMISTRY ASH [employer] Organization Address City/State/[facility] Co de Phone Number [facility] [address] [place] [address], [facility] [place] [phone] * (ABNORMAL) CALCIUM IONIZED WHOLE BLOOD (08/23/2020 4:28 AM [facility]) Ionized Calcium Whole Blood 1.01 mmol/L 08/23/2020 4:36 AM [facility] Adjusted Ionized Calcium 0.98(L) 1.19 - 1.34 mmol/L 08/23/2020 4:36 AM [facility] pH Whole Blood 7.35 7.35 - 7.45 08/23/2020 4:36 AM [facility] Blood WHOLE BLOOD SPECIMEN / Unknown Venipuncture / Unknown 08/23/2020 4:28 AM [facility] 08/23/2020 4:32 AM [facility] Dionte Comer MD LAB - CHEMISTRY [employer] [employer] Performing Organization Address City/[facility]/ZIP Co de Phone Number [address] [address], [place] [phone] * (ABNORMAL) ALBUMIN BLOOD (08/23/2020 4:28 AM [facility]) Albumin 2.8(L) 3.4 - 5.0 g/dL 08/23/2020 4:54 AM [facility] Blood BLOOD SPECIMEN / Unknown Venipuncture / Unknown 08/23/2020 4:28 AM [facility] 08/23/2020 4:35 AM [facility] Dionte Comer MD LAB - CHEMISTRY [employer] [employer]ER Performing Organization Address [facility]/ZIP Co de Phone Number [address] [address], [place] [phone] * (ABNORMAL) PTH INTACT W/O CALCIUM (08/23/2020 4:28 AM [facility]) PTH Intact <4.0(L) 8.0 - 77.0 pg/mL 08/23/2020 5:11 AM [facility] Blood BLOOD SPECIMEN / Unknown Venipuncture / Unknown 08/23/2020 4:28 AM [facility] 08/23/2020 4:35 AM [facility] Dionte Comer MD LAB - CHEMISTRY ASH [employer]ER Performing Organization Address City/[facility]/ZIP Co de Phone Number [address] [address], [place] [phone] * PREPARE (CROSSMATCH) RBC UNIT(S), 2 Units (08/23/2020 2:17 AM [facility]) Unit Description AS1 LR PRBC [facility] Unit ABO B [facility] Unit Rh POS [facility] Product Number R02 [facility] B LOOD [facility] Unit Donor # [id number] [facility] Unit Status released [facility] BLOO D BANK LAB Product Code [id number] [facility] Blood Type Barcode 7300 [facility] Expiration Date S BLOOD BANK LAB Unit Description AS1 LR PRBC [facility] Unit ABO B [facility] Unit Rh POS [facility] Product Number R02 [facility] B LOOD [facility] Unit Donor # [id number] [facility] Unit Status released [facility] BLOO D BANK [facility] Product Code [id number] [facility] BLO OD BANK LAB Blood Type Barcode 7300 [facility] Expiration Date S BLOOD BANK LAB Blood Bank BLOOD SPECIMEN / Unknown 08/19/2020 6:25 AM [facility] Dionte Comer MD LAB - BLOOD BANK ORD ERABLES [facility] [address] [place] [address], [facility] [place] [phone] * (ABNORMAL) PHOSPHORUS BLOOD (08/22/2020 11:50 PM [facility]) Pathologist [facility] Phosphorus 5.0(H) 2.3 - 4.7 mg/dL 08/23/2020 12:22 AM [facility] Blood BLOOD SPECIMEN / Unknown Venipuncture / Unknown 08/22/2020 11:50 PM [facility] 08/22/2020 6:16 PM [facility] Dionte Comer MD LAB - CHEMISTRY ORDSrinivas WEAVER [address] [address], [facility] [place] [phone] * (ABNORMAL) CBC W/O DIFFERENTIAL (08/22/2020 11:50 PM [facility]) Pathologist [facility] WBC 13.1(H) 3.5 - 10.5 10? 3 /uL 08/23/2020 12:02 AM [facility] RBC 3.91 3.90 - 5.00 10? 6 /uL 08/23/2020 12:02 AM [facility] Hemoglobin 11.4(L) 12.0 - 15.5 g/dL 08/23/2020 12:02 AM [facility] Hematocrit 35.4 35.0 - 45.0 % 08/23/2020 12:02 AM [facility] MCV 90.5 81.0 - 97.0 fL 08/23/2020 12:02 AM [facility] MCH 29.2 28.0 - 34.0 pg 08/23/2020 12:02 AM [facility] MCHC 32.2 32.0 - 36.0 g/dL 08/23/2020 12:02 AM [facility] Platelet Count 273 150 - 400 10? 3 /uL 08/23/2020 12:02 AM [facility] RDW-SD 40.9 36.0 - 50.0 fL 08/23/2020 12:02 AM [facility] RDW-CV 12.4 11.2 - 14.8 % 08/23/2020 12:02 AM [facility] MPV 9.6 9.3 - 12.8 fL 08/23/2020 12:02 AM [facility] nRBC Absolute 0.00 0 10? 3 /uL 08/23/2020 12:02 AM [facility] nRBC Auto 0.0 0 /100 WBC 08/23/2020 12:02 AM [facility] Blood BLOOD SPECIMEN / Unknown Venipuncture / Unknown 08/22/2020 11:50 PM [facility] 08/22/2020 6:16 PM [facility] Dionte Comer MD LAB - HEMATOLOGY ORD ERABLES [facility] [address] [place] [address], [facility] [place] [phone] * (ABNORMAL) BASIC METABOLIC PANEL (CALCIUM TOTAL) (08/22/2020 11:50 PM [facility]) BUN 6(L) 7 - 26 mg/dL 08/23/2020 12:22 AM [facility] Creatinine 0.6 0.6 - 1.2 mg/dL 08/23/2020 12:22 AM [facility] Sodium 145 136 - 145 mmol/L 08/23/2020 12:22 AM [facility] Potassium 3.6 3.5 - 4.5 mmol/L 08/23/2020 12:22 AM [facility] Chloride 99 98 - 107 mmol/L 08/23/2020 12:22 AM [facility] CO2 35(H) 22 - 29 mmol/L 08/23/2020 12:22 AM [facility] Glucose 104 70 - 115 mg/dL 08/23/2020 12:22 AM [facility] Calcium 7.6(L) 8.4 - 10.2 mg/dL 08/23/2020 12:22 AM [facility] Anion Gap 15 8 - 18 08/23/2020 12:22 AM [facility] BUN/Creatinine Ratio 10 7 - 23 08/23/2020 12:22 AM [facility] Osmolality Calculated 298 270 - 300 mOsm/kg 08/23/2020 12:22 AM [facility] eGFR >60 >60 mL/min/1.7 3 m2 08/23/2020 12:22 AM [facility] Blood BLOOD SPECIMEN / Unknown Venipuncture / Unknown 08/22/2020 11:50 PM [facility] 08/22/2020 6:16 PM [facility] Dionte Comer MD LAB - CHEMISTRY [facility] [address] [place] [id number], [facility] [place] [phone] * (ABNORMAL) CALCIUM IONIZED WHOLE BLOOD (08/22/2020 11:50 PM [facility]) Pathologist [facility] Ionized Calcium Whole Blood 1.02 mmol/L 08/22/2020 11:55 PM [facility] Adjusted Ionized Calcium 0.99(L) 1.19 - 1.34 mmol/L 08/22/2020 11:55 PM [facility] pH Whole Blood 7.34(L) 7.35 - 7.45 08/22/2020 11:55 PM [facility] Blood WHOLE BLOOD SPECIMEN / Unknown Venipuncture / Unknown 08/22/2020 11:50 PM [facility] 08/22/2020 11:54 PM [facility] Dionte Comer MD LAB - CHEMISTRY [facility] [address] [address], [facility] [place] [phone] * (ABNORMAL) CALCIUM IONIZED WHOLE BLOOD (08/22/2020 4:36 PM [facility]) Ionized Calcium Whole Blood 0.93 mmol/L 08/22/2020 4:43 PM [facility] Adjusted Ionized Calcium 0.92(L) 1.19 - 1.34 mmol/L 08/22/2020 4:43 PM [facility] pH Whole Blood 7.39 7.35 - 7.45 08/22/2020 4:43 PM [facility] Blood WHOLE BLOOD SPECIMEN / Unknown Venipuncture / Unknown 08/22/2020 4:36 PM [facility] 08/22/2020 4:41 PM [facility] Dionte Comer MD LAB - CHEMISTRY [facility] [address] [address], [facility] [place] [phone] * (ABNORMAL) RENAL FUNCTION PANEL (08/22/2020 11:05 AM [facility]) BUN 6(L) 7 - 26 mg/dL 08/22/2020 11:36 AM [facility] Creatinine 0.5(L) 0.6 - 1.2 mg/dL 08/22/2020 11:36 AM [facility] Sodium 145 136 - 145 mmol/L 08/22/2020 11:36 AM [facility] Potassium 3.9 3.5 - 4.5 mmol/L 08/22/2020 11:36 AM [facility] Chloride 99 98 - 107 mmol/L 08/22/2020 11:36 AM [facility] CO2 33(H) 22 - 29 mmol/L 08/22/2020 11:36 AM [facility] Glucose 118(H) 70 - 115 mg/dL 08/22/2020 11:36 AM [facility] Albumin 3.0(L) 3.4 - 5.0 g/dL 08/22/2020 11:36 AM [facility] Calcium 7.5(L) 8.4 - 10.2 mg/dL 08/22/2020 11:36 AM [facility] Phosphorus 4.9(H) 2.3 - 4.7 mg/dL 08/22/2020 11:36 AM [facility] Anion Gap 17 8 - 18 08/22/2020 11:36 AM [facility] BUN/Creatinine Ratio 12 7 - 23 08/22/2020 11:36 AM [facility] Osmolality Calculated 299 270 - 300 mOsm/kg 08/22/2020 11:36 AM [facility] eGFR >60 >60 mL/min/1.7 3 m2 08/22/2020 11:36 AM [facility] Blood BLOOD SPECIMEN / Unknown Venipuncture / Unknown 08/22/2020 11:05 AM [facility] 08/22/2020 11:12 AM [facility] Dionte Comer MD LAB - CHEMISTRY [facility] [address] [place] [address], [facility] [place] [phone] * MAGNESIUM BLOOD (08/22/2020 11:05 AM [facility]) Magnesium 1.9 1.6 - 2.6 mg/dL 08/22/2020 11:36 AM [facility] Blood BLOOD SPECIMEN / Unknown Venipuncture / Unknown 08/22/2020 11:05 AM [facility] 08/22/2020 11:12 AM [facility] Dionte Comer MD LAB - CHEMISTRY [facility] [address] [phone], [facility] [place] [phone] * (ABNORMAL) CALCIUM IONIZED WHOLE BLOOD (08/22/2020 11:05 AM [facility]) Ionized Calcium Whole Blood 1.04 mmol/L 08/22/2020 11:12 AM [facility] PURCHASING [facility] Adjusted Ionized Calcium 1.01(L) 1.19 - 1.34 mmol/L 08/22/2020 11:12 AM [facility] pH Whole Blood 7.35 7.35 - 7.45 08/22/2020 11:12 AM [facility] Blood WHOLE BLOOD SPECIMEN / Unknown Venipuncture / Unknown 08/22/2020 11:05 AM VP PURCHASING 08/22/2020 11:11 AM VP PURCHASING Dionte Comer MD LAB - CHEMISTRY [facility] Performing Organization Address [facility]/ZIP Co de Phone Number [address] [address], [facility] [place] [phone] * (ABNORMAL) CALCIUM IONIZED WHOLE BLOOD (08/22/2020 5:04 AM VP PURCHASING) Ionized Calcium Whole Blood 1.11 mmol/L 08/22/2020 5:09 AM [facility] Adjusted Ionized Calcium 1.08(L) 1.19 - 1.34 mmol/L 08/22/2020 5:09 AM [facility] pH Whole Blood 7.35 7.35 - 7.45 08/22/2020 5:09 AM [facility] Blood WHOLE BLOOD SPECIMEN / Unknown Venipuncture / Unknown 08/22/2020 5:04 AM [facility] PURCHASING 08/22/2020 5:07 AM VP PURCHASING Dionte Comer MD LAB - CHEMISTRY [facility] [employer] [address] [address], [facility] [place] [phone] * PHOSPHORUS BLOOD (08/21/2020 11:44 PM VP PURCHASING) Pathologist [facility] Phosphorus 4.4 2.3 - 4.7 mg/dL 08/22/2020 12:20 AM [facility] Blood BLOOD SPECIMEN / Unknown Venipuncture / Unknown 08/21/2020 11:44 PM VP PURCHASING 08/21/2020 6:16 PM VP PURCHASING Dionte Comer MD LAB - CHEMISTRY [employer] [employer] [address] [address], [facility] [place] [phone] * MAGNESIUM BLOOD (08/21/2020 11:44 PM VP PURCHASING) Pathologist [facility] Magnesium 1.6 1.6 - 2.6 mg/dL 08/22/2020 12:20 AM [facility] Blood BLOOD SPECIMEN / Unknown Venipuncture / Unknown 08/21/2020 11:44 PM VP PURCHASING 08/21/2020 6:16 PM [facility] PURCHASING Dionte Comer MD LAB - CHEMISTRY ASH WE[employer]ER [address] [address], [facility] [place] [phone] * (ABNORMAL) CBC W/O DIFFERENTIAL (08/21/2020 11:44 PM VP PURCHASING) [facility] WBC 10.3 3.5 - 10.5 10? 3 /uL 08/21/2020 11:55 PM [facility] RBC 3.94 3.90 - 5.00 10? 6 /uL 08/21/2020 11:55 PM [facility] Hemoglobin 11.4(L) 12.0 - 15.5 g/dL 08/21/2020 11:55 PM [facility] Hematocrit 35.7 35.0 - 45.0 % 08/21/2020 11:55 PM [facility] MCV 90.6 81.0 - 97.0 fL 08/21/2020 11:55 PM [facility] MCH 28.9 28.0 - 34.0 pg 08/21/2020 11:55 PM [facility] MCHC 31.9(L) 32.0 - 36.0 g/dL 08/21/2020 11:55 PM [facility] Platelet Count 270 150 - 400 10? 3 /uL 08/21/2020 11:55 PM [facility] RDW-SD 41.8 36.0 - 50.0 fL 08/21/2020 11:55 PM [facility] RDW-CV 12.4 11.2 - 14.8 % 08/21/2020 11:55 PM [facility] MPV 9.6 9.3 - 12.8 fL 08/21/2020 11:55 PM [facility] nRBC Absolute 0.00 0 10? 3 /uL 08/21/2020 11:55 PM [facility] nRBC Auto 0.0 0 /100 WBC 08/21/2020 11:55 PM [facility] Blood BLOOD SPECIMEN / Unknown Venipuncture / Unknown 08/21/2020 11:44 PM VP PURCHASING 08/21/2020 6:16 PM VP PURCHASING Dionte Comer MD LAB - HEMATOLOGY ORD ERABLES [facility] [address] [place] [address], [facility] [place] [phone] * (ABNORMAL) BASIC METABOLIC PANEL (CALCIUM TOTAL) (08/21/2020 11:44 PM VP PURCHASING) BUN 5(L) 7 - 26 mg/dL 08/22/2020 12:20 AM [facility] Creatinine 0.6 0.6 - 1.2 mg/dL 08/22/2020 12:20 AM [facility] Sodium 144 136 - 145 mmol/L 08/22/2020 12:20 AM [facility] Potassium 3.6 3.5 - 4.5 mmol/L 08/22/2020 12:20 AM [facility] Chloride 101 98 - 107 mmol/L 08/22/2020 12:20 AM [facility] CO2 34(H) 22 - 29 mmol/L 08/22/2020 12:20 AM [facility] Glucose 117(H) 70 - 115 mg/dL 08/22/2020 12:20 AM [facility] Calcium 8.2(L) 8.4 - 10.2 mg/dL 08/22/2020 12:20 AM [facility] Anion Gap 13 8 - 18 08/22/2020 12:20 AM [facility] BUN/Creatinine Ratio 8 7 - 23 08/22/2020 12:20 AM [facility] Osmolality Calculated 296 270 - 300 mOsm/kg 08/22/2020 12:20 AM [facility] eGFR >60 >60 mL/min/1.7 3 m2 08/22/2020 12:20 AM [facility] Blood BLOOD SPECIMEN / Unknown Venipuncture / Unknown 08/21/2020 11:44 PM VP PURCHASING 08/21/2020 6:16 PM VP PURCHASING Dionte Comer MD LAB - CHEMISTRY [employer] Performing Organization Address City/[facility]/ZIP Co de Phone Number [address] [address], [facility] [place] [phone] * (ABNORMAL) CALCIUM IONIZED WHOLE BLOOD (08/21/2020 11:43 PM VP PURCHASING) [facility] Ionized Calcium Whole Blood 1.17 mmol/L 08/21/2020 11:50 PM [facility] Adjusted Ionized Calcium 1.15(L) 1.19 - 1.34 mmol/L 08/21/2020 11:50 PM [facility] pH Whole Blood 7.37 7.35 - 7.45 08/21/2020 11:50 PM [facility] Blood WHOLE BLOOD SPECIMEN / Unknown Venipuncture / Unknown 08/21/2020 11:43 PM VP PURCHASING 08/21/2020 11:49 PM VP PURCHASING Dionte Comer MD LAB - CHEMISTRY [employer] Performing Organization Address City/[facility]/ZIP Co de Phone Number [address] [address], [place] [phone] * (ABNORMAL) CALCIUM IONIZED WHOLE BLOOD (08/21/2020 5:34 PM VP PURCHASING) Ionized Calcium Whole Blood 1.08 mmol/L 08/21/2020 5:44 PM [facility] Adjusted Ionized Calcium 1.06(L) 1.19 - 1.34 mmol/L 08/21/2020 5:44 PM [facility] pH Whole Blood 7.36 7.35 - 7.45 08/21/2020 5:44 PM [facility] Blood WHOLE BLOOD SPECIMEN / Unknown Venipuncture / Unknown 08/21/2020 5:34 PM VP PURCHASING 08/21/2020 5:42 PM VP PURCHASING Dionte Comer MD LAB - CHEMISTRY A[employer]ER [address] [address], [facility] [place] [phone] * MAGNESIUM BLOOD (08/21/2020 12:01 PM VP PURCHASING) Pathologist [facility] Magnesium 1.7 1.6 - 2.6 mg/dL 08/21/2020 12:38 PM [facility] Blood BLOOD SPECIMEN / Unknown Venipuncture / Unknown 08/21/2020 12:01 PM VP PURCHASING 08/21/2020 12:16 PM [facility]CHASING Dionte Comer MD LAB - CHEMISTRY A[employer]ER [address] [address], [place] [phone] * (ABNORMAL) CALCIUM IONIZED WHOLE BLOOD (08/21/2020 11:07 AM VP PURCHASING) Ionized Calcium Whole Blood 1.09 mmol/L 08/21/2020 11:13 AM [facility] Adjusted Ionized Calcium 1.08(L) 1.19 - 1.34 mmol/L 08/21/2020 11:13 AM [facility] pH Whole Blood 7.39 7.35 - 7.45 08/21/2020 11:13 AM [facility] Blood WHOLE BLOOD SPECIMEN / Unknown Venipuncture / Unknown 08/21/2020 11:07 AM VP PURCHASING 08/21/2020 11:11 AM VP PURCHASING Dionte Comer MD LAB - CHEMISTRY ASH WE[employer]ER [facility] [address] [place], [place] [id number], [facility] [place] [phone] * (ABNORMAL) THYROGLOBULIN BY ANTONIETA RFLXED (08/21/2020 4:25 AM VP PURCHASING) Thyroglobulin by ANTONIETA 192.2(H) 1.5 - 38.5 ng/mL 08/22/2020 6:07 PM VP PURCHASING [facility] ([facility]) Comment: According to the National Academy [...] is 0.1 ng/mL Thyroglobulin measured by Lisbet [place] Immunometric Assay Blood BLOOD SPECIMEN / Unknown Venipuncture / Unknown 08/21/2020 4:25 AM VP PURCHASING 08/21/2020 4:49 AM VP PURCHASING Narrative [facility] ([facility]) - 08/22/2020 6:07 PM VP PURCHASING Performed at: ??01 - [facility] [address] [place], [place] ??[id number] Rn Cardiology: Oral Melendez PhD, Phone: ??[phone] Dionte Comer MD LAB - CHEMISTRY A[facility] [employer]ER Performing Organization Address City/[facility]/ZIP Co de Phone Number [facility] ([facility]) [address] [place] [address] * (ABNORMAL) CALCIUM IONIZED WHOLE BLOOD (08/21/2020 4:25 AM VP PURCHASING) Ionized Calcium Whole Blood 1.14 mmol/L 08/21/2020 4:31 AM VP PURCHASING [facility] Adjusted Ionized Calcium 1.12(L) 1.19 - 1.34 mmol/L 08/21/2020 4:31 AM [facility] pH Whole Blood 7.37 7.35 - 7.45 08/21/2020 4:31 AM [facility] Blood WHOLE BLOOD SPECIMEN / Unknown Venipuncture / Unknown 08/21/2020 4:25 AM VP PURCHASING 08/21/2020 4:28 AM VP PURCHASING Dionte Comer MD LAB - CHEMISTRY A[employer]ER Performing Organization Address City/[facility]/ZIP Co de Phone Number [facility] [address] [place] [address], [facility] [place] [phone] * THYROGLOBULIN REFLEX PROFILE (08/21/2020 4:25 AM VP PURCHASING) Thyroglobulin Antibody <1.0 0.0 - 0.9 IU/mL 08/22/2020 6:07 PM VP PURCHASING [facility] ([facility]) Comment:Thyroglobulin Antibo dy measured by Lisbet [place] Methodology Blood BLOOD SPECIMEN / Unknown Venipuncture / Unknown 08/21/2020 4:25 AM VP PURCHASING 08/21/2020 4:49 AM VP PURCHASING Narrative [facility] ([facility]) - 08/22/2020 6:07 PM VP PURCHASING Performed at: ??01 - [facility] [address] ??[id number] Rn Cardiology: Oral Melendez PhD, Phone: ??[phone] Dionte Comer MD LAB - CHEMISTRY A[employer]ER Performing Organization Address City/[facility]/ZIP Co de Phone Number [facility] ([facility]) [address] [place] [address] * VITAMIN D 25-HYDROXY (08/21/2020 4:25 AM VP PURCHASING) Vitamin D, 25 Hydroxy 32.0 See comment: ng/mL 08/21/2020 5:18 AM VP [facility] Comment: The recommendations for 25-Hydroxy Vitamin [...] 2011 ? Blood BLOOD SPECIMEN / Unknown Venipuncture / Unknown 08/21/2020 4:25 AM VP PURCHASING 08/21/2020 4:29 AM VP PURCHASING Dionte Comer MD LAB - CHEMISTRY A[employer]ER Performing Organization Address City/[facility]/ZIP Co de Phone Number [address] [address], [employer] [phone] * PHOSPHORUS BLOOD (08/20/2020 11:24 PM VP PURCHASING) Phosphorus 4.5 2.3 - 4.7 mg/dL 08/21/2020 12:00 AM [facility] Blood BLOOD SPECIMEN / Unknown Venipuncture / Unknown 08/20/2020 11:24 PM VP PURCHASING 08/20/2020 6:16 PM VP PURCHASING Dionte Comer MD LAB - CHEMISTRY ASH [employer]ER Performing Organization Address [facility] Co de Phone Number [address] [address], [employer] [phone] * (ABNORMAL) MAGNESIUM BLOOD (08/20/2020 11:24 PM VP PURCHASING) Magnesium 1.5(L) 1.6 - 2.6 mg/dL 08/21/2020 12:00 AM VP PURCHASING [facility] Blood BLOOD SPECIMEN / Unknown Venipuncture / Unknown 08/20/2020 11:24 PM VP PURCHASING 08/20/2020 6:16 PM VP PURCHASING Dionte Comer MD LAB - CHEMISTRY ASH WE[employer]ER [facility] [address] [place] [address], [facility] [place] [phone] * (ABNORMAL) CBC W/O DIFFERENTIAL (08/20/2020 11:24 PM VP PURCHASING) WBC 12.6(H) 3.5 - 10.5 10? 3 /uL 08/20/2020 11:40 PM [facility] RBC 4.41 3.90 - 5.00 10? 6 /uL 08/20/2020 11:40 PM [facility] Hemoglobin 12.9 12.0 - 15.5 g/dL 08/20/2020 11:40 PM [facility] Hematocrit 40.2 35.0 - 45.0 % 08/20/2020 11:40 PM [facility] MCV 91.2 81.0 - 97.0 fL 08/20/2020 11:40 PM [facility] MCH 29.3 28.0 - 34.0 pg 08/20/2020 11:40 PM [facility] MCHC 32.1 32.0 - 36.0 g/dL 08/20/2020 11:40 PM [facility] Platelet Count 261 150 - 400 10? 3 /uL 08/20/2020 11:40 PM [facility] RDW-SD 43.8 36.0 - 50.0 fL 08/20/2020 11:40 PM [facility] RDW-CV 13.0 11.2 - 14.8 % 08/20/2020 11:40 PM [facility] MPV 9.6 9.3 - 12.8 fL 08/20/2020 11:40 PM [facility] nRBC Absolute 0.00 0 10? 3 /uL 08/20/2020 11:40 PM [facility] nRBC Auto 0.0 0 /100 WBC 08/20/2020 11:40 PM [facility] Blood BLOOD SPECIMEN / Unknown Venipuncture / Unknown 08/20/2020 11:24 PM VP PURCHASING 08/20/2020 6:16 PM [facility]CHASING Dionte Comer MD LAB - HEMATOLOGY ORD ERABLES [facility] [address] [place] [address], [facility] [place] [phone] * (ABNORMAL) BASIC METABOLIC PANEL (CALCIUM TOTAL) (08/20/2020 11:24 PM VP PURCHASING) BUN 7 7 - 26 mg/dL 08/21/2020 12:00 AM [facility] Creatinine 0.7 0.6 - 1.2 mg/dL 08/21/2020 12:00 AM [facility] Sodium 136 136 - 145 mmol/L 08/21/2020 12:00 AM [facility] Potassium 3.7 3.5 - 4.5 mmol/L 08/21/2020 12:00 AM [facility] Chloride 98 98 - 107 mmol/L 08/21/2020 12:00 AM [facility] CO2 30(H) 22 - 29 mmol/L 08/21/2020 12:00 AM [facility] Glucose 133(H) 70 - 115 mg/dL 08/21/2020 12:00 AM [facility] Calcium 8.2(L) 8.4 - 10.2 mg/dL 08/21/2020 12:00 AM [facility] Anion Gap 12 8 - 18 08/21/2020 12:00 AM [facility] BUN/Creatinine Ratio 10 7 - 23 08/21/2020 12:00 AM [facility] Osmolality Calculated 282 270 - 300 mOsm/kg 08/21/2020 12:00 AM [facility] eGFR >60 >60 mL/min/1.7 3 m2 08/21/2020 12:00 AM [facility] Blood BLOOD SPECIMEN / Unknown Venipuncture / Unknown 08/20/2020 11:24 PM VP PURCHASING 08/20/2020 6:16 PM VP [facility]CHASING Dionte Comer MD LAB - CHEMISTRY ASH WE[employer]ER [address] [address], [facility] [place] [phone] * (ABNORMAL) CALCIUM IONIZED WHOLE BLOOD (08/20/2020 11:04 PM VP PURCHASING) Ionized Calcium Whole Blood 1.18 mmol/L 08/20/2020 11:13 PM VP PURCHASING [facility] Adjusted Ionized Calcium 1.16(L) 1.19 - 1.34 mmol/L 08/20/2020 11:13 PM VP PURCHASING [facility] pH Whole Blood 7.37 7.35 - 7.45 08/20/2020 11:13 PM VP PURCHASING [facility] Blood WHOLE BLOOD SPECIMEN / Unknown Venipuncture / Unknown 08/20/2020 11:04 PM VP PURCHASING 08/20/2020 11:10 PM VP PURCHASING Dionte Comer MD LAB - CHEMISTRY ASH WE[employer]ER [address] [address], [facility] [place] [phone] * (ABNORMAL) CALCIUM IONIZED WHOLE BLOOD (08/20/2020 5:46 PM VP PURCHASING) Ionized Calcium Whole Blood 1.17 mmol/L 08/20/2020 5:55 PM VP PURCHASING [facility] Adjusted Ionized Calcium 1.16(L) 1.19 - 1.34 mmol/L 08/20/2020 5:55 PM VP PURCHASING [facility] pH Whole Blood 7.38 7.35 - 7.45 08/20/2020 5:55 PM VP PURCHASING [facility] Blood WHOLE BLOOD SPECIMEN / Unknown Venipuncture / Unknown 08/20/2020 5:46 PM VP PURCHASING 08/20/2020 5:53 PM VP PURCHASING Dionte Comer MD LAB - CHEMISTRY ASH WEAVER [address] [address], [place] [phone] * (ABNORMAL) CALCIUM IONIZED WHOLE BLOOD (08/20/2020 11:41 AM VP PURCHASING) Ionized Calcium Whole Blood 1.13 mmol/L 08/20/2020 11:48 AM [facility] Adjusted Ionized Calcium 1.08(L) 1.19 - 1.34 mmol/L 08/20/2020 11:48 AM [facility] pH Whole Blood 7.31(L) 7.35 - 7.45 08/20/2020 11:48 AM [facility] Blood WHOLE BLOOD SPECIMEN / Unknown Venipuncture / Unknown 08/20/2020 11:41 AM VP PURCHASING 08/20/2020 11:46 AM VP PURCHASING Dionte oCmer MD LAB - CHEMISTRY ASH WEAVER Performing Organization Address [facility]/ZIP Co de Phone Number [address] [address], [facility] [place] [phone] * (ABNORMAL) CALCIUM IONIZED WHOLE BLOOD (08/20/2020 5:08 AM VP PURCHASING) Ionized Calcium Whole Blood 1.01 mmol/L 08/20/2020 5:14 AM [facility] Adjusted Ionized Calcium 0.98(L) 1.19 - 1.34 mmol/L 08/20/2020 5:14 AM [facility] pH Whole Blood 7.35 7.35 - 7.45 08/20/2020 5:14 AM [facility] Blood WHOLE BLOOD SPECIMEN / Unknown Venipuncture / Unknown 08/20/2020 5:08 AM VP PURCHASING 08/20/2020 5:12 AM VP PURCHASING Dionte Comer MD LAB - CHEMISTRY ASH WEAVER [address] [address], [place] [phone] * (ABNORMAL) PTH INTACT W/O CALCIUM (08/20/2020 5:08 AM VP PURCHASING) PTH Intact <4.0(L) 8.0 - 77.0 pg/mL 08/20/2020 5:43 AM VP PURCHASING [facility] Blood BLOOD SPECIMEN / Unknown Venipuncture / Unknown 08/20/2020 5:08 AM VP PURCHASING 08/20/2020 5:12 AM [facility]CHASING Dionte Comer MD LAB - CHEMISTRY ASH WE[employer]ER Performing Organization Address City/[facility]/ZIP Co de Phone Number [address] [address], [place] [phone] * (ABNORMAL) PHOSPHORUS BLOOD (08/19/2020 11:48 PM VP PURCHASING) Phosphorus 6.5(H) 2.3 - 4.7 mg/dL 08/20/2020 12:30 AM VP PURCHASING [facility] Blood BLOOD SPECIMEN / Unknown Venipuncture / Unknown 08/19/2020 11:48 PM VP PURCHASING 08/19/2020 6:16 PM VP PURCHASING Dionte Comer MD LAB - CHEMISTRY ASH WE[employer]ER Performing Organization Address [facility]/ZIP Co de Phone Number [address] [address], [place] [phone] * MAGNESIUM BLOOD (08/19/2020 11:48 PM VP PURCHASING) Magnesium 1.6 1.6 - 2.6 mg/dL 08/20/2020 12:30 AM VP PURCHASING [facility] Blood BLOOD SPECIMEN / Unknown Venipuncture / Unknown 08/19/2020 11:48 PM VP PURCHASING 08/19/2020 6:16 PM VP PURCHASING Dionte Comer MD LAB - CHEMISTRY ASH WE[employer]ER Performing Organization Address City/[facility]/ZIP Co de Phone Number [address] [address], [facility] [place] [phone] * (ABNORMAL) CBC W/O DIFFERENTIAL (08/19/2020 11:48 PM VP PURCHASING) WBC 15.3(H) 3.5 - 10.5 10? 3 /uL 08/20/2020 12:05 AM [facility] RBC 4.82 3.90 - 5.00 10? 6 /uL 08/20/2020 12:05 AM [facility] Hemoglobin 14.3 12.0 - 15.5 g/dL 08/20/2020 12:05 AM [facility] Hematocrit 43.7 35.0 - 45.0 % 08/20/2020 12:05 AM [facility] MCV 90.7 81.0 - 97.0 fL 08/20/2020 12:05 AM [facility] MCH 29.7 28.0 - 34.0 pg 08/20/2020 12:05 AM [facility] MCHC 32.7 32.0 - 36.0 g/dL 08/20/2020 12:05 AM [facility] Platelet Count 280 150 - 400 10? 3 /uL 08/20/2020 12:05 AM [facility] RDW-SD 43.7 36.0 - 50.0 fL 08/20/2020 12:05 AM [facility] RDW-CV 13.1 11.2 - 14.8 % 08/20/2020 12:05 AM [facility] MPV 9.4 9.3 - 12.8 fL 08/20/2020 12:05 AM [facility] nRBC Absolute 0.00 0 10? 3 /uL 08/20/2020 12:05 AM [facility] nRBC Auto 0.0 0 /100 WBC 08/20/2020 12:05 AM [facility] Blood BLOOD SPECIMEN / Unknown Venipuncture / Unknown 08/19/2020 11:48 PM VP PURCHASING 08/19/2020 6:16 PM [facility]CHASING Dionte Comer MD LAB - HEMATOLOGY ORD ERABLES [address] [address], [facility] [place] [phone] * (ABNORMAL) BASIC METABOLIC PANEL (CALCIUM TOTAL) (08/19/2020 11:48 PM VP PURCHASING) BUN 10 7 - 26 mg/dL 08/20/2020 12:30 AM [facility] Creatinine 0.7 0.6 - 1.2 mg/dL 08/20/2020 12:30 AM [facility] Sodium 137 136 - 145 mmol/L 08/20/2020 12:30 AM [facility] Potassium 4.5 3.5 - 4.5 mmol/L 08/20/2020 12:30 AM [facility] Chloride 103 98 - 107 mmol/L 08/20/2020 12:30 AM [facility] CO2 24 22 - 29 mmol/L 08/20/2020 12:30 AM [facility] Glucose 204(H) 70 - 115 mg/dL 08/20/2020 12:30 AM [facility] Calcium 7.7(L) 8.4 - 10.2 mg/dL 08/20/2020 12:30 AM [facility] Anion Gap 15 8 - 18 08/20/2020 12:30 AM [facility] BUN/Creatinine Ratio 14 7 - 23 08/20/2020 12:30 AM [facility] Osmolality Calculated 289 270 - 300 mOsm/kg 08/20/2020 12:30 AM [facility] eGFR >60 >60 mL/min/1.7 3 m2 08/20/2020 12:30 AM [facility] Blood BLOOD SPECIMEN / Unknown Venipuncture / Unknown 08/19/2020 11:48 PM VP PURCHASING 08/19/2020 6:16 PM [facility] Dionte Comer MD LAB - CHEMISTRY ASH WEAVER [facility] Organization Address City/State/[facility] Co de Phone Number [facility] [address] [place] [address], [facility] [place] [phone] * (ABNORMAL) CALCIUM IONIZED WHOLE BLOOD (08/19/2020 11:48 PM [facility]) Ionized Calcium Whole Blood 1.10 mmol/L 08/20/2020 12:02 AM [facility] Adjusted Ionized Calcium 1.05(L) 1.19 - 1.34 mmol/L 08/20/2020 12:02 AM [facility] pH Whole Blood 7.30(L) 7.35 - 7.45 08/20/2020 12:02 AM VP PURCHASING [facility] Blood WHOLE BLOOD SPECIMEN / Unknown Venipuncture / Unknown 08/19/2020 11:48 PM VP PURCHASING 08/19/2020 11:55 PM [facility] Dionte Comer MD LAB - CHEMISTRY ASH [employer]ER Performing Organization Address [facility]/ZIP Co de Phone Number [address] [address], [facility] [place] [phone] * (ABNORMAL) CALCIUM IONIZED WHOLE BLOOD (08/19/2020 6:16 PM [facility]CHASING) Ionized Calcium Whole Blood 1.09 mmol/L 08/19/2020 6:30 PM [facility] Adjusted Ionized Calcium 0.96(L) 1.19 - 1.34 mmol/L 08/19/2020 6:30 PM [facility] pH Whole Blood 7.16(L) 7.35 - 7.45 08/19/2020 6:30 PM [facility] Blood WHOLE BLOOD SPECIMEN / Unknown Venipuncture / Unknown 08/19/2020 6:16 PM [facility] 08/19/2020 6:25 PM [facility] Dionte Comer MD LAB - CHEMISTRY ASH WEAVER Performing Organization Address [facility] Co de Phone Number [address] [address], [facility] [place] [phone] * XR ABDOMEN KUB PORTABLE (08/19/2020 4:52 PM [facility]) Anatomical Region Laterality Modality Abdomen Radiographic Antonieta ging 08/20/2020 7:32 AM [facility] Impressions 08/20/2020 9:00 AM [facility] Findings/impression: 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 Dictated by Kendall Quiroz MD (president and ceo). I, Dr. ROGER HOUSE have personally reviewed and interpreted this examination/study. This report was electronically signed by ROGER HOUSE ??on 08/20/2020 9:00 AM . 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 Findings/impression: 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 Dictated by Kendall Quiroz MD (president and ceo). I, Dr. ROGER HOUSE have personally reviewed and interpreted this examination/study. This report was electronically signed by ROGER HOUSE on 08/20/2020 9:00 AM . Dionte Comer MD DIAGNOSTIC IMAGING O RDERABLES * PATHOLOGY TISSUE (08/19/2020 9:43 AM [facility]) Case Report Surgical Pathology Report ? Case: [id number] ? Authorizing Provider: ??Dionte Comer MD ?Collected: ? 08/19/2020 11:45 AM ? Ordering Location: ? [facility] ?Received: ?08/20/2020 06:05 AM ? Pathologist: ? Michelle Anthony MD ? Specimens: ?? A) - Lymph Node, Regional Resection, Left level 2A ? B) - Lymph Node, Regional Resection, Left level 3 ? C) - Lymph Node, Regional Resection, Left level 4 & 5 ? D) - Lymph Node, Regional Resection, Right level 3 ? E) - Lymph Node, Regional Resection, right level 2a ? F) - Lymph Node, Regional Resection, right level 4/5 ? G) - Soft Tissue, Other, Right recurrent laryngeal nerve - FROZEN ? H) - Thyroid Lobe, Left thyroid lobe - PERM ? I) - Soft Tissue, Other, Left central neck mass - FROZEN ? J) - Soft Tissue, Other, Revision right recurrent laryngeal nerve, clip not true ? margin - FROZEN ? K) - Soft Tissue Mass, Central neck dissection - PERM ? L) - Parathyroid, Query parathyroid - FROZEN ? M) - Thyroid Lobe, right thyroid lobectomy with tracheal wall, short stitch superior, ? long stitch anterior ? N) - Trachea, left tracheal wall, short stitch superior, long stitch anterior ? O) - Trachea, right superior tracheal wall ink true margin ? 1 7:23 AM [facility] Final Diagnosis Lymph nodes, left level 2A, dissection (A): - No evidence of malignancy in 14 nodes (0/14) Lymph nodes, left level 3, dissection (B): - Metastatic carcinoma in 1 of 14 nodes (1/14) Lymph nodes, left level 4&5, dissection (C): - Metastatic carcinoma in 2 of 13 nodes (2/13) Lymph [...] FSO1): - Submucosal tissue involved by tumor 7:23 AM [facility] Microscopic Description and Comment Hematoxylin and eosin stained sections demonstrate a follicular neoplasm with nuclear clearing and grooves, crowding and overlapping: The nuclear features of papillary thyroid carcinoma. Much of the tumor has follicular architecture although in some areas looks more classically papillary or trabecular. In addition, there are several areas which show tall cell phenotype (for which the height of the cell is 3 times its width). There is clear extrathyroidal extension with involvement of tracheal mucosa, which appears to be present at the inferior right tracheal margin in lymphovascular spaces and focally present at the superior right tracheal margin reexcision. Multiple lymph nodes show metastatic carcinoma. Please see synoptic for further details. 1 7:23 AM [facility] Clinical History The patient is a 60 year old woman with thyroid mass and involvement with trachea, suspicious for follicular neoplasm. 1 7:23 AM [facility] Intraoperative Consultation Brought fresh to the frozen section room, specimen G) right recurrent laryngeal nerve consists of a minute, tovar piece of tissue measuring 0.3 x 0.2 x 0.2 cm. Frozen as FSG1 entirely. FSG1, Right recurrent laryngeal nerve - Perineural invasion, involved by tumor Michelle Anthony M.D., Ph.D. Brought fresh to the frozen section room, specimen I) left central neck mass consists of a tovar tissue measuring 0.3 x 0.3 x 0.2 cm. Frozen as FS I1 entirely. FSI1, Left central neck mass - Negative for tumor - Consistent with parathyroid Michelle Anthony M.D., Ph.D. Brought fresh to the frozen section room, specimen J) revision right recurrent laryngeal nerve, clip not true margin consists of a length of tovar tissue, measuring 0.7 x 0.2 cm with a clip on one end. The specimen is inked as follows: Yellow-clip end; blue-opposite end. Frozen as FSJ1 entirely. FSJ1, Revision right recurrent laryngeal nerve, clip not true margin - Negative for tumor Michelle Anthony M.D., Ph.D. Brought fresh to the frozen section room, specimen L) query parathyroid consists of 2 portions of tissue, 1 tovar-brown measuring 0.3 x 0.3 x 0.3 cm and 1 yellow adipose tissue measuring 0.7 x 0.5 x 0.3 cm. Frozen entirely as FSL1. FSL1, Query parathyroid - Benign fibrovascular and adipose tissue Michelle Anthony M.D., Ph.D. Brought fresh to the frozen section room, specimen M) right thyroid lobectomy with tracheal wall, short stitch superior, long stitch anterior consists of portion of thyroid with attached tracheal wall; thyroid measuring 2.5 (A-P) by 3.5 (S-I) by 2.5 (L-R) cm; trachea measuring 2 x 2 cm. Superior and inferior margins shaved and frozen as FSM1 (superior) and FSM2 (inferior). Superior thyroid-inked blue. Rest for permanent. FSM1, Superior tracheal margin en face - Positive for tumor FSM2, Inferior tracheal margin en face - Positive in outer soft tissue Michelle Anthony M.D., Ph.D. Brought fresh to the frozen section room, specimen N) left tracheal wall, short superior, long anterior consists of a trachea measuring 2.5 x 2.3 x 0.3 cm. The superior is inked blue, and inferior is inked green, shaved and frozen as FSN1. Rest for permanent. FSN1, Left superior tracheal margin en face and left inferior tracheal margin en face - Both are negative for tumor Michelle Anthony M.D., Ph.D. Brought fresh to the frozen section room, specimen O) superior tracheal wall, ink true margin consists of a trachea measuring 1.2 x 0.4 x 0.2 cm. Inked blue by surgeon on true margin, re-inked blue. Frozen en face as FSO1. FSO1, Right superior tracheal wall, ink on true margin - Positive for tumor Michelle Anthony M.D., Ph.D. 1 7:23 AM [facility] Gross Description The requisition and specimen label(s) are identified with the patient's name, Elizabeth Caicedo. Received in formalin, specimen A, are multiple fragments of fibroadipose tissue, 6 x 0.5 x 1.4 cm in aggregate. Multiple lymph nodes are identified, 0.4-1.7 cm in greatest dimension. Entirely submitted to include all identifiable lymph nodes as follows: A1-1 bisected lymph node A2-A3 whole lymph nodes, E2-W9-xsmhdbvfp adipose tissue. Received in formalin, specimen B is a 5 x 4.5 x 0.7 cm aggregate of pink to yellow-tovar fibroadipose tissue. Multiple lymph nodes are identified, 0.3-1.3 cm in greatest dimension. Entirely submitted as follows: B1-2 bisected lymph nodes, 1 differentially inked green, B2-whole lymph nodes, S5-S0-ogucevmwg adipose tissue Received in formalin, specimen C is a 5 x 3 x 1.4 cm aggregate of fibroadipose tissue. Multiple lymph nodes are identified, 0.3-2.4 cm in greatest dimension. The largest lymph node is grossly positive. Entirely submitted as follows: C1-C2-1 multiply sectioned lymph node, C3-C4-whole lymph nodes and adipose tissue, G4-W1-jxncmmsft adipose tissue with possible nodes. Received in formalin, specimen D is a 4.5 x 2.5 x 0.7 cm aggregate of fibroadipose tissue. Multiple lymph nodes are identified, 0.3-0.8 cm in greatest dimension. Entirely submitted as follows: D1-2 Lymph nodes bisected and 1 differentially inked green, D2-whole lymph nodes, D3-remaining adipose tissue Received in formalin, specimen E is a 5.7 x 2.5 x 1.3 cm aggregate of fibroadipose tissue. Multiple lymph nodes are identified, 0.5-1.2 cm in greatest dimension. Entirely submitted as follows: E1-E2-2 bisected lymph nodes in each cassette and 1 differentially inked green, E3-E4 whole lymph nodes, E5-E6 remaining adipose tissue. Received in formalin, specimen F is a 6.5 x 3 x 0.7 cm fibroadipose tissue fragment. Multiple lymph nodes are identified, 0.4-1.5 cm in greatest dimension. Fur Polisher sections are submitted to include all identifiable lymph nodes as follows: F1-1 bisected lymph node, F2-F3 whole lymph nodes, F4-adipose tissue. Received in formalin after frozen section, specimen G are fragments as described in the intraoperative consultation. The frozen section remnant is entirely submitted in cassette G1. Received in formalin, specimen H is a 4.0 g, 4 x 2.9 x 1.1 cm thyroid lobe. The surface is roughened with fibrous adhesions. The isthmic margin is identified, inked green. The remainder of the specimen is inked black. Located within the upper pole is an area of tovar, irregular, nodularity measuring 1.2 x 1.5 x 0.9 cm, abutting the inked surface, and >1 cm from isthmic margin. The remaining cut surfaces are brown-tovar with multiple glassy nodules, 0.1-0.4 cm in greatest dimension. Entirely submitted sequentially as follows: H1-H2 upper pole, H3-H4-mid pole, H5-H6 lower pole. Received in formalin after frozen section, specimen I are fragments as described in the intraoperative consultation. The frozen section is entirely submitted in cassette I1. Received in formalin after frozen section, originally labeled specimen K and relabeled specimen J are fragments as described in the intraoperative consultation. The frozen section remnant is entirely submitted in cassette J1. Received in formalin, originally labelled as L, and relabeled specimen K are multiple fragments of fibroadipose tissue, 4 x 2 x 0.6 cm in greatest dimension. 2 lymph nodes are identified, 1.3 x 0.5 cm in 1 x 0.7 x 0.5 cm. Entirely submitted as follows: K1-2 bisected lymph nodes, 1 differentially inked green, K2-adipose tissue. Received in formalin after frozen section, originally labeled M, relabeled as specimen L are fragments as described in the intraoperative consultation. The frozen section remnant is entirely submitted in cassette L1. Received in formalin after frozen section, originally labeled N and relabeled as specimen M are fragments as described in the intraoperative consultation. The specimen is inked as follows: anterior edge - orange, the remainder of the surface-black. Sectioning shows a 3.2 x 2.2 x 2 cm tovar, firm, irregular lesion involving 95% of the thyroid and invading into the trachea. A portion of the mass is partially calcified. At the mid anterior part of the thyroid a disrupted fragment of soft tissue is present measuring 1.5 x 1.2 x 0.7 cm with brown-tovar, mildly firm, unremarkable cut surfaces. Fur Polisher sections submitted as follows (to include every other slice of thyroid): M1-superior tracheal margin, frozen section control, M2-inferior tracheal margin, frozen section control, M3-upper portion of thyroid, M4-M5-mid portion of thyroid, M6-inferior portion of thyroid, M7-M8 - disrupted brown-tovar soft tissue. Received in formalin after frozen section, originally labeled O and relabelled as specimen N is as described in the intraoperative consultation. The anterior half is inked orange, the posterior half is inked jackie, and the remainder of the specimen is serially sectioned. The specimen is entirely submitted as follows: N1-superior and inferior tracheal margins, frozen section control, V7-R5-ckxzulbug cross sections. Received in formalin after frozen section, originally labeled P and relabeled as specimen O are fragments as described in the intraoperative consultation. The frozen section is entirely submitted in cassette O1. LJ 7:23 AM [facility] Addendum 1 A [place]-8 immunostain performed on specimen G, the frozen remnant of the right recurrent laryngeal nerve, highlights the tumor cells with weak nuclear reactivity. 7:23 AM [facility] Addendum electronically signed by Michelle Anthony MD on 09/03/2020 at 7:23 AM Disclaimer The performance characteristics of all immunohistochemical and indirect immunofluorescence stains (if any) cited in this report were determined by the Histopathology Laboratory of [facility]. Some of these tests were developed [...] and interpreted by the attending (teaching) pathologist. 7:23 AM [facility] Synoptic Report THYROID GLAND ??(THYROID GLAND: RESECTION - All Specimens) 8th Edition - Protocol posted: 08/30/2019 ?? Clinical History: ?No known radiation exposure SPECIMEN ?? Procedure: ?Total thyroidectomy TUMOR ?? Tumor Focality: ?Multifocal ?? Tumor Characteristics: ? Tumor Site: ?Right lobe ? Tumor Site: ?Left lobe ? Histologic Type: ?Papillary carcinoma ? Tumor Size: ?Greatest Dimension (Centimeters): 3.2 cm ? Extrathyroidal Extension: ?Present, clinical / macroscopic AND histologically confirmed ? : ?Invading subcutaneous soft tissues, larynx, trachea, esophagus or recurrent laryngeal nerve (i.e., pT4a) ? Angioinvasion (vascular invasion): ?Present ? Lymphatic Invasion: ?Present ? Perineural Invasion: ?Present ? Margins: ?Involved by carcinoma ? Site(s) of Involvement: ?right tracheal margins LYMPH NODES ?? Number of Lymph Nodes Involved: ?10 ?? Tony Levels Involved: ?Level ?? Tony Levels Involved: ?Right Lateral Level II ?? Tony Levels Involved: ?Right Lateral Level III ?? Tony Levels Involved: ?Right Lateral Level IV ?? Tony Levels Involved: ?Left Lateral Level III ?? Tony Levels Involved: ?Left Lateral Level IV ?? Tony Levels Involved: ?Left Lateral Level V ?? Size of Largest Metastatic Deposit (Centimeters): ?2.4 cm ?? Extranodal Extension (JADON): ?Present ?? Number of Lymph Nodes Examined: ?83 ? Tony Levels Examined: ?Level ? Tony Levels Examined: ?Right Lateral Level II ? Tony Levels Examined: ?Right Lateral Level III ? Tony Levels Examined: ?Right Lateral Level IV ? Tony Levels Examined: ?Right Lateral Level V ? Tony Levels Examined: ?Left Lateral Level II ? Tony Levels Examined: ?Left Lateral Level III ? Tony Levels Examined: ?Left Lateral Level IV ? Tony Levels Examined: ?Left Lateral Level V PATHOLOGIC STAGE CLASSIFICATION (pTNM, AJCC 8th Edition) ? 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 Regional Lymph Nodes (pN): ?pN1b 1 7:23 AM [facility] Embedded Images 1 7:23 AM [facility] Biopsy, Excision (Lymph Node, Regional Resection) 08/19/2020 9:43 AM [facility] 08/20/2020 6:05 AM [facility] Comment:Pre-op diagnosis: TRACHEAL MASS, HOARSENESS, RIGHT VOCAL CORD PARALYSIS, LYMPHADENECTOMY HEAD AND NECK Biopsy, Excision (Lymph Node, Regional Resection) 08/19/2020 9:43 AM [facility] 08/20/2020 6:05 AM [facility] Comment:Pre-op diagnosis: TRACHEAL MASS, HOARSENESS, RIGHT VOCAL CORD PARALYSIS, LYMPHADENECTOMY HEAD AND NECK Biopsy, Excision (Lymph Node, Regional Resection) 08/19/2020 9:43 AM [facility] 08/20/2020 6:05 AM [facility] Comment:Pre-op diagnosis: TRACHEAL MASS, HOARSENESS, RIGHT VOCAL CORD PARALYSIS, LYMPHADENECTOMY HEAD AND NECK Lymph Node Dissection (Lymph Node, Regional Resection) 08/19/2020 10:07 AM [facility] 08/20/2020 6:05 AM [facility] Comment:Pre-op diagnosis: TRACHEAL MASS, HOARSENESS, RIGHT VOCAL CORD PARALYSIS, LYMPHADENECTOMY HEAD AND NECK Lymph Node Dissection (Lymph Node, Regional Resection) 08/19/2020 10:27 AM [facility] 08/20/2020 6:05 AM [facility] Comment:Pre-op diagnosis: TRACHEAL MASS, HOARSENESS, RIGHT VOCAL CORD PARALYSIS, LYMPHADENECTOMY HEAD AND NECK Lymph Node Dissection (Lymph Node, Regional Resection) 08/19/2020 10:28 AM [facility] 08/20/2020 6:05 AM [facility] Comment:Pre-op diagnosis: TRACHEAL MASS, HOARSENESS, RIGHT VOCAL CORD PARALYSIS, LYMPHADENECTOMY HEAD AND NECK Biopsy, Excision (Soft Tissue, Other) 08/19/2020 11:45 AM [facility] 08/20/2020 6:05 AM [facility] Comment:Pre-op diagnosis: TRACHEAL MASS, HOARSENESS, RIGHT VOCAL CORD PARALYSIS, LYMPHADENECTOMY HEAD AND NECK Biopsy, Excision ENTIRE LOBE OF THYROID GLAND / Unknown 08/19/2020 11:55 AM [facility] 08/20/2020 6:05 AM [facility] Comment:Pre-op diagnosis: TRACHEAL MASS, HOARSENESS, RIGHT VOCAL CORD PARALYSIS, LYMPHADENECTOMY HEAD AND NECK Biopsy, Excision (Soft Tissue, Other) 08/19/2020 12:06 PM [facility] 08/20/2020 6:05 AM [facility] Comment:Pre-op diagnosis: TRACHEAL MASS, HOARSENESS, RIGHT VOCAL CORD PARALYSIS, LYMPHADENECTOMY HEAD AND NECK Biopsy, Excision (Soft Tissue, Other) 08/19/2020 12:09 PM [facility] 08/20/2020 6:05 AM [facility] Comment:Pre-op diagnosis: TRACHEAL MASS, HOARSENESS, RIGHT VOCAL CORD PARALYSIS, LYMPHADENECTOMY HEAD AND NECK Biopsy, Excision SOFT TISSUE MASS / Unknown 08/19/2020 12:16 PM [facility] 08/20/2020 6:05 AM [facility] Comment:Pre-op diagnosis: TRACHEAL MASS, HOARSENESS, RIGHT VOCAL CORD PARALYSIS, LYMPHADENECTOMY HEAD AND NECK Biopsy, Excision (Parathyroid) 08/19/2020 12:19 PM [facility] 08/20/2020 6:05 AM [facility] Comment:Pre-op diagnosis: TRACHEAL MASS, HOARSENESS, RIGHT VOCAL CORD PARALYSIS, LYMPHADENECTOMY HEAD AND NECK Resection with Tumor ENTIRE LOBE OF THYROID GLAND / Unknown 08/19/2020 1:15 PM [facility] 08/20/2020 6:05 AM [facility] Comment:Pre-op diagnosis: TRACHEAL MASS, HOARSENESS, RIGHT VOCAL CORD PARALYSIS, LYMPHADENECTOMY HEAD AND NECK Biopsy, Excision ENTIRE TRACHEA / Unknown 08/19/2020 1:24 PM [facility] 08/20/2020 6:05 AM [facility] Comment:Pre-op diagnosis: TRACHEAL MASS, HOARSENESS, RIGHT VOCAL CORD PARALYSIS, LYMPHADENECTOMY HEAD AND NECK Biopsy, Excision ENTIRE TRACHEA / Unknown 08/19/2020 1:25 PM [facility] 08/20/2020 6:05 AM [facility] Comment:Pre-op diagnosis: TRACHEAL MASS, HOARSENESS, RIGHT VOCAL CORD PARALYSIS, LYMPHADENECTOMY HEAD AND NECK Dionte Comer MD LAB - PATHOLOGY/CYTO LOGY ORDERABLES Performing Organization Address City/[facility]/ZIP Co de Phone Number [facility] [address] [place] [address], [facility] [place] [phone] * TYPE + SCREEN PANEL (08/19/2020 6:18 AM [facility]) Antibody Screen NEG 7:03 AM [facility] ABO Rh B POS 08/19/2020 7:03 AM [facility] Blood Bank BLOOD SPECIMEN / Unknown Venipuncture / Unknown 08/19/2020 6:18 AM [facility] 08/19/2020 6:25 AM [facility] Dionte Comer MD LAB - BLOOD BANK ORD ERABLES Performing Organization Address City/[facility]/ZIP Co de Phone Number [facility] [address] [id number], [facility] [place] [phone] documented in this encounter Visit Diagnoses Diagnosis Lymphadenopathy of head and neck region- Primary Tracheal mass Swelling, mass, 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 Hoarseness Dysphonia 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, mass, 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 0.9% NaCl injection 3 mL 3 mL, Intracatheter, EVERY 8 HOURS, First dose on 08/18/20 at 1545, Until Discontinued, Flush peripheral IV catheter with 3 mL of normal saline every 8 hours. $ Given 08/29/2020 5:30 AM [facility] 3 mL $ Given 08/28/2020 8:15 PM [facility] 3 mL $ Given 08/28/2020 1:21 PM [facility] 3 mL 0.9% NaCl injection 3 mL 3 mL, Intracatheter, EVERY 8 HOURS, First dose on Wed08/19/20 at 1700, Until Discontinued, Flush peripheral IV catheter with 3 mL of normal saline every 8 hours. $ Given 08/23/2020 8:25 PM [facility] 3 mL $ Given 08/23/2020 1:28 PM [facility] 3 mL $ Given 08/23/2020 5:33 AM [facility] 3 mL acetaminophen (TYLENOL) tablet 1,000 mg 1,000 mg, Oral, ONCE PRN, pain, 1 dose, Starting on Wed08/19/20 at 1626, Until Wed08/21/20 at 1127, For pain, if not given in OR if not given in last 6 hours., PACU $ Given 08/21/2020 11:27 AM [facility] 1,000 mg acetaminophen (TYLENOL) tablet 500 mg 500 mg, Enteral Tube, EVERY 6 HOURS, First dose on Wed08/19/20 at 1800, Until Discontinued $ Given 08/24/2020 12:00 PM [facility] 500 mg NG Tube $ Given 08/23/2020 11:54 PM [facility] 500 mg N G Tube $ Given 08/23/2020 6:10 PM [facility] 500 mg NG Tube acetaminophen (TYLENOL) tablet 500 mg 500 mg, Oral, EVERY 6 HOURS, First dose (after last modification) on Wed08/24/20 at 1800, Until Discontinued $ Given 08/29/2020 5:29 AM [facility] 500 mg $ Given 08/28/2020 11:31 PM [facility] 500 mg $ Given 08/28/2020 5:21 PM [facility] 500 mg albuterol-ipratropium (DUO-NEB) nebulizer solution 3 mL 3 mL, Inhalation, EVERY 4 HOURS PRN, Shortness of Breath, Wheezing, Starting on Wed08/26/20 at 1138, Until Wed08/29/20 at 1230 atorvastatin (LIPITOR) tablet 40 mg 40 mg, Oral, AT BEDTIME, First dose on Wed08/19/20 at 2100, Until Discontinued $ Given 08/19/2020 8:41 PM [facility] 40 mg atorvastatin (LIPITOR) tablet 40 mg 40 mg, Enteral Tube, AT BEDTIME, First dose (after last modification) on Wed08/20/20 at 2100, Until Discontinued $ Given 08/23/2020 8:28 PM [facility] 40 mg NG Tube $ Given 08/22/2020 8:15 PM [facility] 40 mg NG Tube $ Given 08/21/2020 9:08 PM [facility] 40 mg NG Tube atorvastatin (LIPITOR) tablet 40 mg 40 mg, Oral, AT BEDTIME, First dose (after last modification) on Wed08/24/20 at 2100, Until Discontinued $ Given 08/28/2020 8:15 PM [facility] 40 mg $ Given 08/27/2020 8:53 PM [facility] 40 mg $ Given 08/26/2020 8:03 PM [facility] 40 mg calcitriol (ROCALTROL) capsule 0.5 mcg 0.5 mcg, Oral, DAILY, First dose (after last modification) on Wed08/21/20 at 0900, Until Discontinued, Administer via G-tube if possible $ Given 08/21/2020 11:28 AM [facility] 0.5 mcg calcitriol (ROCALTROL) capsule 0.5 mcg 0.5 mcg, Oral, 2 TIMES DAILY, First dose (after last modification) on Wed08/21/20 at 2100, Until Discontinued, Administer via G-tube if possible $ Given 08/29/2020 9:05 AM [facility] 0.5 mcg $ Given 08/28/2020 8:19 PM [facility] 0.5 mcg $ Given 08/28/2020 8:50 AM [facility] 0.5 mcg calcium carbonate (500mg Ca /5 mL) suspension 2,500 mg, Oral, 3 TIMES DAILY, First dose on Wed08/19/20 at 2100, Until Discontinued, Shake well before using. $ Given 08/19/2020 9:22 PM [facility] 2,500 mg calcium carbonate (500mg Ca /5 mL) suspension 2,500 mg, Enteral Tube, 3 TIMES DAILY, First dose (after last modification) on Wed08/20/20 at 0900, Until Discontinued, Shake well before using. $ Given 08/20/2020 11:23 AM [facility] 2,500 mg NG Tube calcium gluconate 1 g in dextrose 5 % 60 mL IVPB bolus 1 g, at 120 mL/hr, Intravenous, ONCE, 1 dose, On Wed08/20/20 at 0900 $ New Bag/Syringe 08/20/2020 9:22 AM [facility] 1 g 120 mL/hr calcium gluconate 2 g in 100 mL NaCl 0.675% 2 g, at 100 mL/hr, Intravenous, ONCE, 1 dose, On Wed08/19/20 at 1930 $ New Bag/Syringe 08/19/2020 8:03 PM [facility] 2 g 100 mL/hr calcium gluconate 2 g in 100 mL NaCl 0.675% 2 g, at 100 mL/hr, Intravenous, ONCE, 1 dose, On Wed08/25/20 at 1000 $ New Bag/Syringe 08/25/2020 1:06 PM [facility] 2 g 100 mL/hr calcium gluconate 4 g in dextrose 5 % 1,040 mL IVPB Bolus 4 g, at 86.67 mL/hr, Intravenous, ONCE, 1 dose, On Wed08/20/20 at 1000, 4 gm in 1 L , run over 12 hours $ New Bag/Syringe 08/20/2020 10:00 AM [facility] 4 g 86.67 mL/hr calcium gluconate 4 g in dextrose 5 % 1,040 mL IVPB Bolus 4 g, at 86.67 mL/hr, Intravenous, ONCE, 1 dose, On Wed08/21/20 at 1200, In 1 L d5 and run over 12 hours $ New Bag/Syringe 08/21/2020 12:17 PM [facility] 4 g 86.67 mL/hr calcium gluconate 4 g in dextrose 5 % 1,040 mL IVPB Bolus 4 g, at 86.67 mL/hr, Intravenous, ONCE, 1 dose, On Wed08/23/20 at 1330, 4 gms in 1 L D5 over 12 hours $ New Bag/Syringe 08/23/2020 2:11 PM [facility] 4 g 86.67 mL/hr calcium-vitamin D (OS-YANNICK 500 + D) 500-200 mg-unit tablet 1 tablet 1 tablet, Enteral Tube, 3 TIMES DAILY WITH MEALS, First dose on Wed08/20/20 at 1800, Until Discontinued $ Given 08/24/2020 12:01 PM [facility] 1 tablet NG Tube $ Given 08/24/2020 8:40 AM [facility] 1 tablet NG Tube $ Given 08/23/2020 6:10 PM [facility] 1 tablet NG Tube calcium-vitamin D (OS-YANNICK 500 + D) 500-200 mg-unit tablet 1 tablet 1 tablet, Oral, 3 TIMES DAILY WITH MEALS, First dose (after last modification) on Wed08/24/20 at 1800, Until Discontinued $ Given 08/24/2020 5:07 PM [facility] 1 tablet calcium-vitamin D (OS-YANNICK 500 + D) 500-200 mg-unit tablet 2 tablet 2 tablet, Oral, 3 TIMES DAILY WITH MEALS, First dose (after last modification) on Wed08/25/20 at 1200, Until Discontinued $ Given 08/29/2020 9:05 AM [facility] 2 tablets $ Given 08/28/2020 5:21 PM [facility] 2 tablets $ Given 08/28/2020 12:09 PM [facility] 2 tablets clonazePAM (KlonoPIN) tablet 0.5 mg 0.5 mg, Oral, 2 TIMES DAILY, First dose on Wed08/19/20 at 2100, Until Discontinued $ Given 08/19/2020 8:41 PM [facility] 0.5 mg clonazePAM (KlonoPIN) tablet 0.5 mg 0.5 mg, Enteral Tube, 2 TIMES DAILY, First dose (after last modification) on Wed08/20/20 at 0945, Until Discontinued $ Given 08/24/2020 8:38 AM [facility] 0.5 mg NG Tu be $ Given 08/23/2020 8:28 PM [facility] 0.5 mg NG Tube $ Given 08/23/2020 8:14 AM [facility] 0.5 mg NG Tube clonazePAM (KlonoPIN) tablet 0.5 mg 0.5 mg, Oral, 2 TIMES DAILY, First dose (after last modification) on Wed08/24/20 at 2100, Until Discontinued $ Given 08/29/2020 9:05 AM [facility] 0.5 mg $ Given 08/28/2020 8:15 PM [facility] 0.5 mg $ Given 08/28/2020 8:50 AM [facility] 0.5 mg dextrose 5% and 0.45% NaCl with KCl 20 mEq infusion at 100 mL/hr, Intravenous, CONTINUOUS, Starting on Wed08/19/20 at 1700, Until Wed08/22/20 at 1953, Post-op $ New Bag/Syringe 08/22/2020 6:48 PM [facility] 1 00 mL/hr $ New Bag/Syringe 08/22/2020 4:15 AM [facility] 100 mL /hr $ New Bag/Syringe 08/20/2020 8:26 PM [facility] 100 mL /hr fentaNYL (PF) (SUBLIMAZE) injection 50 mcg 50 mcg, Intravenous, ONCE, 1 dose, On Wed08/20/20 at 0815 $ Given 08/20/2020 8:15 AM [facility] 50 mcg heparin injection 5,000 Units 5,000 Units, Subcutaneous, EVERY 8 HOURS, First dose on Wed08/20/20 at 0900, Until Discontinued $ Given 08/29/2020 5:30 AM VP PURCHASING 5,000 Units Right Arm $ Given 08/28/2020 10:30 PM VP PURCHASING 5,000 Units Right Arm $ Given 08/28/2020 1:19 PM VP PURCHASING 5,000 Units L eft Arm ibuprofen (MOTRIN) tablet 400 mg 400 mg, Oral, EVERY 6 HOURS PRN, Mild Pain, Starting on Wed08/24/20 at 1312, Until Wed08/29/20 at 1230, Maximum allowable amount = 3200 mg / 24 hours. $ Given 08/24/2020 5:01 PM VP PURCHASING 400 mg levothyroxine (SYNTHROID) tablet 112 mcg 112 mcg, Enteral Tube, DAILY AT 0600, First dose on Wed08/21/20 at 0600, Until Discontinued, Take in the morning on an empty stomach. Do not give within 4 hours of antacids, iron or calcium supplements. $ Given 08/24/2020 4:13 AM VP PURCHASING 112 mcg G Tube $ Given 08/23/2020 5:32 AM VP PURCHASING 112 mcg NG Tube $ Given 08/22/2020 5:15 AM VP PURCHASING 112 mcg NG Tube levothyroxine (SYNTHROID) tablet 112 mcg 112 mcg, Oral, DAILY AT 0600, First dose (after last modification) on Wed08/25/20 at 0600, Until Discontinued, Take in the morning on an empty stomach. Do not give within 4 hours of antacids, iron or calcium supplements. $ Given 08/29/2020 5:29 AM VP PURCHASING 112 mcg $ Given 08/28/2020 5:36 AM VP PURCHASING 112 mcg $ Given 08/27/2020 6:30 AM VP PURCHASING 112 mcg magnesium sulfate 2 g in 50 mL bolus 2 g, at 25 mL/hr, Administer over 120 Minutes, Intravenous, ONCE, 1 dose, On Wed08/21/20 at 0530, Infuse at 1 gm/hr $ New Bag/Syringe 08/21/2020 5:26 AM VP PURCHASING 2 g 25 mL/hr magnesium sulfate 2 g in 50 mL bolus 2 g, at 25 mL/hr, Administer over 120 Minutes, Intravenous, ONCE, 1 dose, On Wed08/22/20 at 0545, Infuse at 1 gm/hr $ New Bag/Syringe 08/22/2020 7:28 AM VP PURCHASING 2 g 25 mL/hr melatonin tablet 3 mg 3 mg, Enteral Tube, EVERY EVENING, First dose on Wed08/20/20 at 1845, Until Discontinued $ Given 08/21/2020 4:50 PM VP PURCHASING 3 mg NG Tube $ Given 08/20/2020 8:26 PM VP PURCHASING 3 mg NG Tube melatonin tablet 3 mg 3 mg, Oral, EVERY EVENING, First dose (after last modification) on Wed08/24/20 at 1700, Until Discontinued $ Given 08/27/2020 4:03 PM VP PURCHASING 3 mg $ Given 08/26/2020 5:35 PM VP PURCHASING 3 mg $ Given 08/25/2020 6:17 PM VP PURCHASING 3 mg octreotide (SandoSTATIN) injection 100 mcg 100 mcg, Subcutaneous, 3 TIMES DAILY, First dose on Wed08/24/20 at 1700, Until Discontinued $ Given 08/29/2020 9:05 AM VP PURCHASING 100 mcg Abd Left Lower Quadrant $ Given 08/28/2020 8:16 PM VP PURCHASING 100 mcg Ri ght Arm $ Given 08/28/2020 1:19 PM VP PURCHASING 100 mcg Le ft Arm ondansetron (ZOFRAN) injection 4 mg 4 mg, Intravenous, EVERY 6 HOURS PRN, Nausea/Vomiting, Starting on Wed08/19/20 at 1654, Until Josi 08/29/20 at 1230, Administer over 2 to 5 minutes. $ Given 08/21/2020 5:36 PM VP PURCHASING 4 mg oxyCODONE (immediate release) (ROXICODONE) tablet 10 mg 10 mg, Enteral Tube, EVERY 4 HOURS PRN, Severe Pain, Starting on Wed08/19/20 at 1654, Until Wed08/20/20 at 0809 $ Given 08/20/2020 3:30 AM VP PURCHASING 10 mg NG Tu be oxyCODONE (immediate release) (ROXICODONE) tablet 5 mg 5 mg, Enteral Tube, EVERY 4 HOURS PRN, Moderate Pain, Starting on Wed08/19/20 at 1654, Until Wed08/20/20 at 0809 $ Given 08/19/2020 8:41 PM VP PURCHASING 5 mg NG Tube oxyCODONE (ROXICODONE) oral solution 5 mg 5 mg, Enteral Tube, EVERY 4 HOURS PRN, Severe Pain, Starting on Josi 08/22/20 at 1142, Until 08/24/20 at 1312 $ Given 08/24/2020 8:38 AM VP PURCHASING 5 mg NG Tube $ Given 08/24/2020 4:13 AM VP PURCHASING 5 mg NG Tube $ Given 08/23/2020 11:54 PM VP PURCHASING 5 mg N G Tube oxyCODONE (ROXICODONE) oral solution 5 mg 5 mg, Oral, EVERY 4 HOURS PRN, Severe Pain, Starting on 08/24/20 at 1312, Until Josi 08/29/20 at 1230 $ Given 08/29/2020 3:59 AM VP PURCHASING 5 mg $ Given 08/28/2020 4:15 PM VP PURCHASING 5 mg $ Given 08/28/2020 10:36 AM VP PURCHASING 5 mg oxyCODONE (ROXICODONE) oral solution 7.5 mg 7.5 mg, Enteral Tube, EVERY 4 HOURS, First dose (after last modification) on Wed08/20/20 at 1200, Until Discontinued $ Given 08/22/2020 8:07 AM VP PURCHASING 7.5 mg NG Tu be $ Given 08/22/2020 5:16 AM VP PURCHASING 7.5 mg NG Tube $ Given 08/22/2020 1:06 AM VP PURCHASING 7.5 mg NG Tube pantoprazole (PROTONIX) injection 40 mg 40 mg, Intravenous, DAILY, First dose on Wed08/20/20 at 1000, Until Discontinued, For every 40 mg of pantoprazole mix with 10 mL Normal Saline (final concentration = 4 mg/mL). Inject SLOWLY over 2 min. $ Given 08/28/2020 8:50 AM VP PURCHASING 40 mg $ Given 08/27/2020 8:49 AM VP PURCHASING 40 mg $ Given 08/26/2020 8:55 AM VP PURCHASING 40 mg pantoprazole EC (PROTONIX) tablet 40 mg 40 mg, Oral, DAILY, First dose on [facility] 08/29/20 at 0900, Until Discontinued, Do not crush, chew, or cut in half. $ Given 08/29/2020 9:05 AM VP PURCHASING 40 mg PARoxetine (PAXIL) tablet 40 mg 40 mg, Enteral Tube, DAILY, First dose (after last modification) on Wed08/20/20 at 0930, Until Discontinued $ Given 08/24/2020 8:40 AM VP PURCHASING 40 mg NG Tube $ Given 08/23/2020 8:14 AM VP PURCHASING 40 mg NG Tube $ Given 08/22/2020 8:07 AM VP PURCHASING 40 mg NG Tube PARoxetine (PAXIL) tablet 40 mg 40 mg, Oral, DAILY, First dose (after last modification) on [place] 08/25/20 at 0900, Until Discontinued $ Given 08/29/2020 9:05 AM VP PURCHASING 40 mg $ Given 08/28/2020 8:50 AM VP PURCHASING 40 mg $ Given 08/27/2020 8:49 AM VP PURCHASING 40 mg polyethylene glycol 3350 (MIRALAX) packet 17 g 17 g, Oral, DAILY, First dose on [place] 08/25/20 at 0900, Until Discontinued, Mix in 8 ounces of water, juice, soda, coffee or tea prior to administration HOLD FOR BM IN LAST 48 HRS $ Given 08/29/2020 9:05 AM VP PURCHASING 17 g $ Given 08/27/2020 8:49 AM VP PURCHASING 17 g $ Given 08/26/2020 8:56 AM VP PURCHASING 17 g senna (SENOKOT) tablet 8.6 mg 8.6 mg, Enteral Tube, DAILY, First dose on Wed08/20/20 at 0900, Until Discontinued $ Given 08/24/2020 8:40 AM VP PURCHASING 8.6 mg NG Tu be $ Given 08/23/2020 8:14 AM VP PURCHASING 8.6 mg NG Tube $ Given 08/22/2020 8:07 AM VP PURCHASING 8.6 mg NG Tube senna (SENOKOT) tablet 8.6 mg 8.6 mg, Oral, DAILY, First dose (after last modification) on Wed08/25/20 at 0900, Until Discontinued $ Given 08/29/2020 9:05 AM VP PURCHASING 8.6 mg $ Given 08/27/2020 8:49 AM VP PURCHASING 8.6 mg $ Given 08/26/2020 8:56 AM VP PURCHASING 8.6 mg sodium chloride (Inhalant) 7 % nebulizer solution 4 mL 4 mL, Inhalation, 3 TIMES DAILY, First dose on Wed08/20/20 at 0900, Until Discontinued $ Given 08/20/2020 12:[address] 4 mL $ Given 08/20/2020 8:21 AM VP PURCHASING 4 mL traZODone (DESYREL) tablet 50 mg 50 mg, Oral, AT BEDTIME, First dose on Wed08/19/20 at 2100, Until Discontinued $ Given 08/19/2020 8:41 PM VP PURCHASING 50 mg traZODone (DESYREL) tablet 50 mg 50 mg, Enteral Tube, AT BEDTIME, First dose (after last modification) on Wed08/20/20 at 2100, Until Discontinued $ Given 08/23/2020 8:28 PM VP PURCHASING 50 mg NG Tube $ Given 08/22/2020 8:16 PM VP PURCHASING 50 mg NG Tube $ Given 08/21/2020 9:07 PM VP PURCHASING 50 mg NG Tube traZODone (DESYREL) tablet 50 mg 50 mg, Oral, AT BEDTIME, First dose (after last modification) on 08/24/20 at 2100, Until Discontinued $ Given 08/28/2020 8:15 PM VP PURCHASING 50 mg $ Given 08/27/2020 8:53 PM VP PURCHASING 50 mg $ Given 08/26/2020 8:03 PM VP PURCHASING 50 mg documented in this encounter Active and Recently Administered Medications Times are shown in VP PURCHASING. Scheduled Medication Order 08/27/2020 08/28/2020 08/29/2020 0.9% NaCl injection 3 mL(Linked Group 1) 3 mL, Intracatheter, EVERY 8 HOURS, First dose on Wed08/18/20 at 1545, Until Discontinued, Flush peripheral IV catheter with 3 mL of normal saline every 8 hours. 0631 ($ Given - Provider: Daiana Garcia RN)1401 ($ Given - Provider: Christa Crawford RN)2054 ($ Given - Provider: Kathleen Bates RN) 0535 ($ Given - Provider: Kathleen Bates RN)1321 ($ Given - Provider: Vincent Bird, JOSY)2014 ($ Given - Provider: Daiana Garcia RN) 0530 ($ Given - Provider: Daiana Garcia RN) acetaminophen (TYLENOL) tablet 500 mg 500 mg, Oral, EVERY 6 HOURS, First dose (after last modification) on Wed08/24/20 at 1800, Until Discontinued 0044 (Not Administered - Provider: Daiana Garcia RN - Reason: Patient sleeping)0630 ($ Given - Provider: Daiana Garcia RN)1158 ($ Given - Provider: Christa Crawford RN)1752 ($ Given - Provider: Christa Crawford RN) 0028 ($ Given - Provider: Kathleen Bates RN)0536 ($ Given - Provider: Kathleen Bates RN)1209 ($ Given - Provider: Vincent Bird, JOSY)1721 ($ Given - Provider: Vincent Bird, JSOY)2331 ($ Given - Provider: Daiana Garcia RN) 0529 ($ Given - Provider: Daiana Garcia RN) atorvastatin (LIPITOR) tablet 40 mg 40 mg, Oral, AT BEDTIME, First dose (after last modification) on Wed08/24/20 at 2100, Until Discontinued 2052 ($ Given - Provider: Kathleen Bates RN) 2014 ($ Given - Provider: Daiana Garcia RN) calcitriol (ROCALTROL) capsule 0.5 mcg 0.5 mcg, Oral, 2 TIMES DAILY, First dose (after last modification) on Wed08/21/20 at 2100, Until Discontinued, Administer via G-tube if possible 0849 ($ Given - Provider: Christa Crawford RN)2053 ($ Given - Provider: Kathleen Bates RN) 0850 ($ Given - Provider: Vincent Bird JOSY)2019 ($ Given - Provider: Daiana Garcia RN) 0905 ($ Given - Provider: Nader Ross, JOYS) calcium-vitamin D (OS-YANNICK 500 + D) 500-200 mg-unit tablet 2 tablet 2 tablet, Oral, 3 TIMES DAILY WITH MEALS, First dose (after last modification) on Wed08/25/20 at 1200, Until Discontinued 0849 ($ Given - Provider: Christa Crawford RN)1158 ($ Given - Provider: Christa Crawford RN)1752 ($ Given - Provider: Christa Crawford, RN) 0850 ($ Given - Provider: Vincent Bird, RN)1209 ($ Given - Provider: Vincent Bird, RN)1721 ($ Given - Provider: Vincent Bird, JOSY) 0905 ($ Given - Provider: Nader Ross, JOSY) clonazePAM (KlonoPIN) tablet 0.5 mg 0.5 mg, Oral, 2 TIMES DAILY, First dose (after last modification) on Wed08/24/20 at 2100, Until Discontinued 0849 ($ Given - Provider: Christa Crawford RN)2052 ($ Given - Provider: Kathleen Bates RN) 0850 ($ Given - Provider: Vincent Bird, JOSY)2014 ($ Given - Provider: Daiana Garcia, JOSY) 0905 ($ Given - Provider: Nader Ross, JOSY) heparin injection 5,000 Units 5,000 Units, Subcutaneous, EVERY 8 HOURS, First dose on Wed08/20/20 at 0900, Until Discontinued 0630 ($ Given - Provider: Daiana Garcia, JOSY)1401 ($ Given - Provider: Christa Crawford RN)205 ($ Given - Provider: Kathleen Bates RN) 0535 ($ Given - Provider: Kathleen Bates RN)1319 ($ Given - Provider: Vincent Bird, JOSY)2230 ($ Given - Provider: Daiana Garcia, JOSY) 0530 ($ Given - Provider: Daiana Garcia, JOSY) levothyroxine (SYNTHROID) tablet 112 mcg 112 mcg, Oral, DAILY AT 0600, First dose (after last modification) on Wed21 at 0600, Until Discontinued, Take in the morning on an empty stomach. Do not give within 4 hours of antacids, iron or calcium supplements. 0630 ($ Given - Provider: Daiana Garcia RN) 0536 ($ Given - Provider: Kathleen Bates RN) 0529 ($ Given - Provider: Daiana Garcia RN) melatonin tablet 3 mg 3 mg, Oral, EVERY EVENING, First dose (after last modification) on 08/24/20 at 1700, Until Discontinued 1603 ($ Given - Provider: Christa Crawford RN) 1724 (Not Administered - Provider: Vincent Bird, JOSY - Reason: Refused-Patient) octreotide (SandoSTATIN) injection 100 mcg 100 mcg, Subcutaneous, 3 TIMES DAILY, First dose on Wed08/24/20 at 1700, Until Discontinued 0849 ($ Given - Provider: Christa Crawford RN)1401 ($ Given - Provider: Christa Crawford RN)2053 ($ Given - Provider: Kathleen Bates RN) 0850 ($ Given - Provider: Vincent Bird, JOSY)1319 ($ Given - Provider: Vincent Bird, RN)2016 ($ Given - Provider: Daiana Garcia RN) 0905 ($ Given - Provider: Nader Ross, JOSY) pantoprazole (PROTONIX) injection 40 mg (CANCELED) 40 mg, Intravenous, DAILY, First dose on Wed08/20/20 at 1000, Until Discontinued, For every 40 mg of pantoprazole mix with 10 mL Normal Saline (final concentration = 4 mg/mL). Inject SLOWLY over 2 min. 0849 ($ Given - Provider: Christa Crawford RN) 0850 ($ Given - Provider: Vincent Bird, JOSY) pantoprazole EC (PROTONIX) tablet 40 mg 40 mg, Oral, DAILY, First dose on Wed08/29/20 at 0900, Until Discontinued, Do not crush, chew, or cut in half. 0905 ($ Given - Provider: Nader Ross, JOSY) PARoxetine (PAXIL) tablet 40 mg 40 mg, Oral, DAILY, First dose (after last modification) on Wed08/25/20 at 0900, Until Discontinued 0849 ($ Given - Provider: Christa Crawford RN) 0850 ($ Given - Provider: Vincent Bird, JOSY) 09 ($ Given - Provider: Nader Ross, JOSY) polyethylene glycol 3350 (MIRALAX) packet 17 g 17 g, Oral, DAILY, First dose on 08/25/20 at 0900, Until Discontinued, Mix in 8 ounces of water, juice, soda, coffee or tea prior to administration HOLD FOR BM IN LAST 48 HRS 0849 ($ Given - Provider: Christa Crawford RN) 0850 (Not Administered - Provider: Vincent Bird, JOSY - Reason: Refused-Patient) 09 ($ Given - Provider: Nader Ross, JOSY) senna (SENOKOT) tablet 8.6 mg 8.6 mg, Oral, DAILY, First dose (after last modification) on 08/25/20 at 0900, Until Discontinued 0849 ($ Given - Provider: Christa Crawford RN) 0850 (Not Administered - Provider: Vincent Bird, JOSY - Reason: Refused-Patient) 09 ($ Given - Provider: Nader Ross, JOSY) traZODone (DESYREL) tablet 50 mg 50 mg, Oral, AT BEDTIME, First dose (after last modification) on 08/24/20 at 2100, Until Discontinued 2052 ($ Given - Provider: Kathleen Bates, RN) 2014 ($ Given - Provider: Daiana Garcia RN) PRN Medication Order 08/27/2020 08/28/2020 08/29/2020 0.9% NaCl injection 1-10 mL(Linked Group 1) 1-10 mL, Intracatheter, PRN, Other, peripheral line flush, Starting on 08/18/20 at 1512, Until Josi 08/29/20 at 1230, Flush peripheral IV catheter with 1-10 mL of normal saline before and after medications and prn to clear blood from the line or to verify patency. albuterol-ipratropium (DUO-NEB) nebulizer solution 3 mL 3 mL, Inhalation, EVERY 4 HOURS PRN, Shortness of Breath, Wheezing, Starting on 08/26/20 at 1138, Until Josi 08/29/20 at 1230 ibuprofen (MOTRIN) tablet 400 mg 400 mg, Oral, EVERY 6 HOURS PRN, Mild Pain, Starting on 08/24/20 at 1312, Until Josi 08/29/20 at 1230, Maximum allowable amount = 3200 mg / 24 hours. ondansetron (ZOFRAN) injection 4 mg 4 mg, Intravenous, EVERY 6 HOURS PRN, Nausea/Vomiting, Starting on 08/19/20 at 1654, Until Josi 08/29/20 at 1230, Administer over 2 to 5 minutes. oxyCODONE (ROXICODONE) oral solution 5 mg 5 mg, Oral, EVERY 4 HOURS PRN, Severe Pain, Starting on 08/24/20 at 1312, Until Josi 08/29/20 at 1230 0438 ($ Given - Provider: Daiana Garcia RN)1603 ($ Given - Provider: Christa Crawford, JOSY)2245 ($ Given - Provider: Kathleen Bates RN) 1036 ($ Given - Provider: Vincent Bird, JOSY)1615 ($ Given - Provider: Vincent Bird, JOSY) 0359 ($ Given - Provider: Daiana Garcia, JOSY) prochlorperazine (COMPAZINE) injection 10 mg 10 mg, Intravenous, EVERY 6 HOURS PRN, Nausea/Vomiting, Starting on 08/19/20 at 1654, Until Josi 08/29/20 at 1230, Max intravenous rate = 5 mg/min Linked Groups Order Group 1: SALINE LOCK, INSERT AND MAINTAIN (CANCELED) Routine, CONTINUOUS, Starting on Wed08/18/20 at 1515, Until Specified, New collection And 0.9% NaCl injection 3 mLJump to med 3 mL, Intracatheter, EVERY 8 HOURS, First dose on Wed08/18/20 at 1545, Until Discontinued, Flush peripheral IV catheter with 3 mL of normal saline every 8 hours. And 0.9% NaCl injection 1-10 mLJump to med 1-10 mL, Intracatheter, PRN, Other, peripheral line flush, Starting on Wed08/18/20 at 1512, Until Josi 08/29/20 at 1230, Flush peripheral IV catheter with 1-10 mL of normal saline before and after medications and prn to clear blood from the line or to verify patency. documented in this encounter Care Teams Supervisor Home Economics Relationship Specialty Start Date End Date Taniya Grimes MD [address] DIV OF [employer] [place] [address] PCP - General 07/01/20 05/10/22 Marylu Marie DO [address] [place] [employer] [place] [address] Resident - PCP Student Resident 06/26/20 01/11/22 documented as of this encounter
--- OUTSIDE RECORDS SUMMARY | 2024-07-23 07:25 | XMS_ITS | Encounter Summary ---
Author Organization [facility] Health Address [address] [place] [address] Care Team Providers Care Technology Solutions Architect Name Role Phone Marylu Marie DO Unavailable Taniya Grimes MD Primary Care Provider Reason for Visit * Reason Onset Date Comments MEDICATION REFILL 09/06/2020 Encounter Details Date Type Department Care Team (Late st Contact Info) Description 09/06/2020 Refill [facility] [address] [place] [address], [place] [phone] Marylu Marie DO [address] [place] [address] [place] [address] MEDICATION REFILL Social History Tobacco Use Types [...] COVID-19? No / Unsure 09/11/2020 1:58 PM FINANCIAL AID documented as of this encounter Functional Status [...] Telephone Encounter - Sita Cotter RN - 09/06/2020 2:26 PM FINANCIAL AID Refill Request Brisa Hogan ELE: 07/11/20 NOV scheduled: none LRF: 03/08/20 Qty Disp: 90 # of refills: 5 Allergies: No Known Allergies Pended Medication Order: Requested Prescriptions Pending Prescriptions Disp Refills ??? gabapentin (NEURONTIN) 300 MG capsule 90 capsule 5 Sig: TAKE 1 CAPSULE BY MOUTH THREE TIMES A DAY NCIAL AID documented in this encounter Plan of Treatment Upcoming Encounters Date Type Department Care Team (Late st Contact Info) Description 07/25/2024 10:00 AM FINANCIAL AID Office Visit [facility] - Endocrinology [address] [place] [phone] Yosi Bustamante MD [address] [place] [address] 2L [place] [address] 07/26/2024 10:00 AM FINANCIAL AID Appointment [facility] [address] [place] [phone] Neri Delgado MD [address] [place] [phone] 07/26/2024 10:00 AM FINANCIAL AID Office Visit [facility] - ENT [address] [place] [phone] Myra Faremr, VASCULAR RADIOLOGIST [address] [place] [address] 2L [place] [phone] 07/26/2024 11:15 AM FINANCIAL AID Office Visit [facility] - ENT [address] [place] [phone] Neri Delgado MD [address] [place] [phone] 08/02/2024 2:20 PM FINANCIAL AID Appointment [facility] [address] [place] [phone] 08/02/2024 3:00 PM FINANCIAL AID Office Visit [facility] - Hematology/Oncology [address] [place] [phone] Remi Beckett MD [address] [place] [phone] 08/18/2024 1:45 PM FINANCIAL AID Office Visit [facility] - ENT [address] [place] [phone] Neri Delgado MD [address] [place] [phone] documented as of this encounter Visit Diagnoses Diagnosis Primary osteoarthritis of left hip Primary localized osteoarthrosis, pelvic region and thigh documented in this encounter Care Teams Technology Solutions Architect Relationship Specialty Start Date End Date Taniya Grimes MD [address] [place] [address] [address] DIV [place] [phone] PCP - General 07/01/20 05/10/22 Marylu Marie DO [address] [place] [address] [address] DIV [place] [address] Resident - PCP Student Resident 06/26/20 01/11/22 documented as of this encounter
--- OUTSIDE RECORDS SUMMARY | 2024-07-23 07:25 | XMS_ITS | Encounter Summary ---
Author Organization [facility] Address [address] [facility] [place] [address] Care Team Providers Care Beater And Pulper Feeder Name Role Phone Marylu Marie DO Unavailable [phone] Taniya Grimes MD Primary Care Provider [phone] Reason for Visit * Reason Comments Neck Mass Encounter Details Date Type Department Care Team (Late st Contact Info) Description 09/11/2020 2:15 PM RISK AND INSURANCE CONSULTANT Office Visit [facility] [address] [place] [phone] Dionte Comer MD [address] [place] [address] [place] [address] Tracheal mass (Primary Dx); Complete paralysis of right vocal cord; Lymphadenopathy of head and neck region Social History Tobacco Use Types Packs/Day Years Used Date Smoking Tobacco: Light Smoker Cigarettes 0.3 51 Started: 07/22/1973 Smokeless Tobacco: Never Tobacco Cessation:Counseling Given: No Comments:1 cig a day Alcohol Use Standard [...] COVID-19? No / Unsure 09/11/2020 1:58 PM RISK AND INSURANCE CONSULTANT documented as of this encounter Last Filed Vital Signs Vital Sign Reading Time Taken Comments Blood Pressure 123/74 09/11/2020 2:44 PM RISK AND INSURANCE CONSULTANT Pulse 82 09/11/2020 2:44 PM RISK AND INSURANCE CONSULTANT Temperature 36.1 ??C (97 ??F) 09/11/2020 2:44 PM RISK AND INSURANCE CONSULTANT Respiratory Rate - - Oxygen Saturation - - Inhaled Oxygen Concentration - - Weight 66.7 kg (147 lb) 09/11/2020 2:44 PM RISK AND INSURANCE CONSULTANT Height 157.5 cm (5' 2) 09/11/2020 2:44 PM RISK AND INSURANCE CONSULTANT Body Mass Index 26.89 09/11/2020 2:44 PM RISK AND INSURANCE CONSULTANT documented in this encounter Functional Status Functional [...] as of this encounter Progress Notes * Dionte Comer MD - 09/11/2020 6:14 PM CST Otolaryngology Clinic Note Date: 09/11/2020 Patient Name: Brisa Hogan : 1960 Chief Complaint Patient presents with ??? Neck Mass Treatment History: 03/24: biopsied thyroid nodule measuring 1.8 x 1.5 x 1.3cm, reportedly negative per patient 07/25: re-demonstration of paratracheal mass on CT PE at OSH of 2.8 x 2.6cm with interval development of dysphagia and hoarseness 08/19/20: total thyroid, bilateral necks, sacrifice of R RLN, tracheal resection/reanastamosis, esophageal muscular resection as margin, bilateral and central necks (LN+) - Souleymane/Desirae HPI: Brisa Hogan is a 60 year old female with PMH s/f lumbar DDD, osteoarthritis, mood disorder, and HLD presented to my clinic for invasive tracheal mass and was found on imaging to have subglottic tracheal and esophageal muscular involvement as well as bilateral adenopathy. She is now status posttracheal resection with a esophageal muscle resection for margin, sacrifice of recurrent laryngeal nerve on the right side (was paralyzed preoperatively) and bilateral neck dissections with reanastomose the trachea, subcutaneous emphysema, postoperative chyle leak. The chyle leak resolved prior to discharge. 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 She has mild supra-incisional edema. She has occasional neck pain and swelling. Her voice is essentially unchanged. She is still having some pain with movement and predominantly affecting her sleep. ROS: A comprehensive 11-point review of systems was performed with pertinent findings as documentedin the HPI, while the patient also reports: Neck swelling, Voice changes No fever but felt run down for a few days Air leak from trachea resolved Current Outpatient Medications Medication Sig Dispense Refill [...] 2 times daily 30 capsule 1 ??? ngmhvyq-bdvpcpzci-ltpv 333-133-5 MG tablet Take 1 tablet by mouth 3 times daily ??? calcium-vitamin D (OS-YANNICK 500 + D) 500-200 mg-unit tablet Take 2 (two) tablets by mouth 3 timesdaily with meals 120 tablet 2 ??? cetirizine (ZYRTEC) 10 MG tablet Take [...] (FLONASE) 50 MCG/ACT nasal spray [place] 2 sprays into each nostril 16 g 0 ??? gabapentin (NEURONTIN) 300 MG capsule TAKE 1 CAPSULE BY MOUTH THREE TIMES A DAY 90 capsule 5 ??? XMSXRL-DXGRHWWSG-CSU-C-HYAL PO Take 1 tablet by mouth 3 times daily ??? HYDROcodone-acetaminophen (NORCO) 5-325 MG tablet Take 1 (one) tablet by mouth every 8 hours asneeded for Pain 30 tablet 0 ??? levothyroxine (SYNTHROID) 112 MCG tablet Take 1 (one) tablet by mouth once daily 30 tablet 1 ??? meloxicam (MOBIC) 7.5 MG tablet TAKE 1 TABLET BY MOUTH EVERY DAY 60 tablet 2 ??? [place]-3 Fatty Acids (FISH OIL) 1000 MG capsule [...] needed for Constipation 45 tablet 0 ??? traZODone (DESYREL) 50 MG tablet Take 50 mg by mouth at bedtime ??? vitamin E (TOCOPHERYL) 400 UNIT capsule Take 400 Units by mouth TID. No current facility-administered medications for this visit. ALLERGIES: Patient has no known allergies. Past Medical History: Diagnosis Date ??? Anxiety and depression ??? Degenerative disc disease, lumbar ??? Disorder of thyroid mass on thyroid - right ??? GERD (gastroesophageal reflux disease) ??? High cholesterol ??? HLD (hyperlipidemia) ??? Osteoarthritis of one hip, left ??? Psoriasis ??? Seasonal allergies ??? Snoring ??? SOB (shortness of breath) 2/2 thyroid mass ??? Tracheal mass Past Surgical History: Procedure [...] None Known Sister Status: Alive Social History Socioeconomic History ??? Marital status: [...] Tobacco comment: 1 cig a day Substance and Sexual Activity ??? Alcohol use: [...] with cane due to hip pain L Physical Exam: Vitals: 09/11/20 1444 BP: 123/74 Pulse: 82 Temp: 97 ??F (36.1 ??C) Weight: 147 lb (66.7 kg) Height: 5' 2 (1.575 m) Estimated body mass index is 26.89 kg/m?? as calculated from the following: Height as of this encounter: 5' 2 (1.575 m). Weight as of this encounter: 147 lb (66.7 kg). General: NAD, hoarse essentially unchanged from preoperative Eyes: EOMI, normal conjunctivae and lids Ears: EACs clear, TM intact bilaterally with normal landmarks without effusion Nose: Moist nasal mucosa bilaterally, no masses or lesions noted, no drainage Oral Cavity, Oropharynx: Fair dentition, no lesions/masses/ulcerations noted, symmetric tongue mobility Neck: Postsurgical changes of the neck with a pinpoint area consistent with her prior tracheocutaneous fistula without evidence of air leak. There is mild supra-incisional edema, left greater than right and can be easily massaged clear with pressure. Neuro: CN 3-12 grossly intact bilaterally other than known sacrifice of right recurrent laryngeal. Resp: Comfortable on room air, no increased work of breathing or stridor significantly, moves largevolumes of air quickly without audible stridor CV: Extremities WWP Psych: appropriate mood and affect No notes on file Pathology IMPRESSION: ?? 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 Plan: - Referral to Dr. Bustamante, who saw her in the hospital, as she is due to prepare for radioactiveiodine treatment for her severe disease - endocrinology fellow cc'd - no need for scope examination today as she is moving air very well - given the current smoking status for this patient, particularly given the need for reduction of irritation and scarring of her anastomosis of the trachea. I have asked her for 4 weeks of smoking cessation to begin as soon as possible. I spent nearly 5 minutes with her discussing this. Dionte Comer MD Otolaryngology-Head and Neck Surgery 09/11/20 AND INSURANCE CONSULTANT documented in this encounter Plan of Treatment Upcoming Encounters Date Type Department Care Team (Late st Contact Info) Description 07/25/2024 10:00 AM RISK AND INSURANCE CONSULTANT Office Visit [facility] - Endocrinology [address] [place] [address], [place] [phone] Yosi Bustamante MD [address] [place] [address] [place] [address] 07/26/2024 10:00 AM RISK AND INSURANCE CONSULTANT Appointment [facility] [address] [place] [phone] Neri Delgado MD [address] [place] [phone] 07/26/2024 10:00 AM RISK AND INSURANCE CONSULTANT Office Visit [facility] - ENT [address] [place] [phone] Myra Farmer, PSYCHOLOGICAL ASSISTANT [address] [place] [address] [place] [phone] 07/26/2024 11:15 AM RISK AND INSURANCE CONSULTANT Office Visit [facility] - ENT [address] [place] [phone] Neri Delgado MD [address] [place] [phone] 08/02/2024 2:20 PM RISK AND INSURANCE CONSULTANT Appointment [facility] [address] [place] [phone] 08/02/2024 3:00 PM RISK AND INSURANCE CONSULTANT Office Visit [facility] - Hematology/Oncology [address] [place] [phone] Remi Beckett MD [address] [place] [phone] 08/18/2024 1:45 PM RISK AND INSURANCE CONSULTANT Office Visit [facility] - ENT [address] [place] [phone] Neri Delgado MD [address] [place] [phone] documented as of this encounter Visit Diagnoses Diagnosis Tracheal mass- Primary Swelling, mass, 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 Complete paralysis of right vocal cord Lymphadenopathy of head and neck region documented in this encounter Care Teams Beater And Pulper Feeder Relationship Specialty Start Date End Date Taniya Grimes MD [address] 2L DIV OF [facility] [place] [address] PCP - General 07/01/20 05/10/22 Marylu Marie DO [address] DIV OF [facility] [place] [address] Resident - PCP Student Resident 06/26/20 01/11/22 documented as of this encounter
--- OUTSIDE RECORDS SUMMARY | 2024-07-23 07:26 | XMS_ITS | Encounter Summary ---
Author Organization [facility] Address [address] [place] [address] Care Team Providers Care Packaging Sales Name Role Phone Marylu Marie DO Unavailable Taniya Grimes MD Primary Care Provider Reason for Visit * Radiology Services (Routine) - Closed Specialty Diagnoses / Procedures Referred By Yuan robins Referred To Contact MRI Diagnoses Neck mass Procedures MRI BRAIN WO CONTRAST Dionte Comer MD [address] [place] [address] [place] [address] Referral ID Status Reason Start Date Expiration Date Visits Re quested Visits Authorized [id number] Closed 08/09/2020 02/07/2021 1 1 Encounter Details Date Type Department Care Team (Latest Contact Info) Description 08/17/2020 12:20 PM SHRIMP PEELING MACHINE TENDER - 08/17/2020 11:59 PM [facility] Hospital Encounter [facility] MRI [address] [place] [phone] Dionte Comer MD [address] [facility] 2L DEPT OF OTOLARYNGOLOGY [place], [place] [phone] Discharge Disposition: Home or Self Care Social [...] COVID-19? No / Unsure 08/17/2020 11:32 AM SHRIMP PEELING MACHINE TENDER documented as of this encounter Functional Status Functional Status Response Date of Assess ment Is person deaf or have serious hearing difficult y? No 08/01/2020 Is person blind or have serious difficulty seein g? No 08/01/2020 Does person have serious dif ficulty walking/climbing stairs? No 08/01/2020 Does person have difficulty dressing/bathing? No 08/01/2020 Does person have difficulty doing errands alone? No 08/01/2020 Cognitive Status Response Date of Assessm ent Does person have difficulty concentrating/remembering/making decisions? No 08/01/2020 documented as of this encounter Medications at [...] times daily 30 capsule 1 08/29/2020 10/03/2020 ivchzan-bdviqezze-vesz 333-133-5 MG tablet Take 1 tablet by [...] fluticasone propionate (FLONASE) 50 MCG/ACT nasal spray [place] 2 sprays into each nostril 16 g 09/06/2019 04/11/2021 gabapentin (NEURONTIN) 300 MG capsuleIndications:Nicole favio osteoarthritis of left hip TAKE 1 CAPSULE BY MOUTH THREE TIMES A DAY 90 capsule 5 03/08/2020 09/06/2020 IEECYM-XMERTPSBB-DZU-C -HYAL PO Take 1 tablet by mouth 3 times daily 06/13/2023 levothyroxine (SYNTHROID) 112 MCG tablet Take 1 (one) tablet by mouth once daily 30 tablet 1 08/30/2020 10/14/2020 meloxicam (MOBIC) 7.5 MG tablet TAKE 1 TABLET BY MOUTH EVERY DAY 60 tablet 2 07/16/2020 01/13/2021 [place]-3 Fatty Acids (FISH OIL) 1000 MG capsule [...] st Contact Info) Description 07/25/2024 10:00 AM SHRIMP PEELING MACHINE TENDER Office Visit [facility] - Endocrinology [address] [place] [phone] Yosi Bustamante MD [address] [place] [address] 2L [place] [address] 07/26/2024 10:00 AM SHRIMP PEELING MACHINE TENDER Appointment [facility] [address] [place] [phone] Neri Delgado MD [address] [place] [phone] 07/26/2024 10:00 AM SHRIMP PEELING MACHINE TENDER Office Visit [facility] - ENT [address] [place] [phone] Myra Farmer, COUNTER CHECKER [address] [place] [address] 2L [place] [phone] 07/26/2024 11:15 AM SHRIMP PEELING MACHINE TENDER Office Visit [facility] - ENT [address] [place] [phone] Neri Delgado MD [address] [place] [phone] 08/02/2024 2:20 PM SHRIMP PEELING MACHINE TENDER Appointment [facility] [address] [place] [address] 08/02/2024 3:00 PM SHRIMP PEELING MACHINE TENDER Office Visit [facility] - Hematology/Oncology [address] [place] [phone] [place] [address] [place] [phone] 08/18/2024 1:45 PM SHRIMP PEELING MACHINE TENDER Office Visit [facility] - ENT [address] [place] [phone] Neri Delgado MD [address] [place] [address] documented as of this encounter Procedures Procedure Name Priority Date/Time Associated Diagnosis Comments MRI BRAIN WO CONTRAST Routine 08/17/2020 1:40 PM SHRIMP PEELING MACHINE TENDER Neck mass documented in this encounter Results * MRI BRAIN WO CONTRAST (08/17/2020 1:40 PM SHRIMP PEELING MACHINE TENDER) Anatomical Region Laterality Modality Head Magnetic Resonan ce 08/19/2020 7:32 AM SHRIMP PEELING MACHINE TENDER Impressions 08/19/2020 11:14 AM SHRIMP PEELING MACHINE TENDER IMPRESSION: 1.Corresponding to the abnormality seen on [...] level 3/4 cervical lymph node. I, Dr. MELA SNELL have personally reviewed and interpreted this examination/study. This report was electronically signed by MELA SNELL ??on 08/19/2020 11:14 AM . Narrative 08/19/2020 11:14 AM SHRIMP PEELING MACHINE TENDER EXAMINATION: MRI of the brain without contrast [...] spine demonstrate multilevel degenerative changes. Procedure Note Mela Snell MD - 08/19/2020 EXAMINATION: MRI of [...] level 3/4 cervical lymph node. I, Dr. MELA SNELL have personally reviewed and interpreted this examination/study. This report was electronically signed by MELA SNELL on 08/19/2020 11:14 AM . Dionte Comer MD MR ORDERABLES documented in this encounter Visit Diagnoses Diagnosis Neck mass Swelling, mass, or lump in head and neck documented in this encounter Care Teams Packaging Sales Relationship Specialty Start Date End Date Taniya Grimes MD [address] 2[address] DIV OF [facility] [place] [address] PCP - General 07/01/20 05/10/22 Marylu Marie DO [address] DIV OF [facility] [place] [address] Resident - PCP Student Resident 06/26/20 01/11/22 documented as of this encounter
--- OUTSIDE RECORDS SUMMARY | 2024-07-23 07:26 | XMS_ITS | Encounter Summary ---
Author Organization [facility] Address [address] [place] [place] [address] Care Team Providers Care Can Cleaner Name Role Phone Marylu Marie DO Unavailable Taniya Grimes MD Primary Care Provider Reason for Visit * Auth/Cert Specialty Diagnoses / Procedures Referred By Yuan t Referred To Contact Diagnoses 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 TRACHEAL MASS, HOARSENESS, RIGHT VOCAL CORD PARALYSIS, LYMPHADENECTOMY HEAD AND NECK Procedures LARYNGOSCOPY WITH MICROSCOPE DISSECTION NECK EXCISION/RESECTION/REPAIR TRACHEA Referral ID Status Reason Start Date Expiration Date Visits Re quested Visits Authorized [id number] 1 1 Encounter Details Date Type Department Care Team (Late st Contact Info) Description 08/19/2020 7:30 AM VARNISH FILTERER - 08/19/2020 3:05 PM VARNISH FILTERER Surgery [facility] [address] [place] [address] Dionte Comer MD [facility] [place] [address] DIRECT LARYNGOSCOPY WITH BIOPSY Surgery Details Date/Time Status Location OR Service Patient Class Case Class Case Type Trauma Case? 08/19/2020 7:30 AM Posted [facility] OR OR 09 ENT Parts Cataloguer Admit Surgical Panel 1 Procedure LRB Anes Op Region Wound Class Comments DIRECT LARYNGOSCOPY WITH BIOPSY N/A General Mouth Clean Contaminated TOTAL THYROIDECTOMY WITH STEVEN TRAL NECK DISSECTION, RIGHT AND LEFT NECK DISSECTIONS N/A General Neck Clean TRACHEAL TUMOR RESECTION N/A General Neck Clean Surgeon Surgeon Role Service Panel Dionte Comer MD Primary ENT 1 Dionte Comer MD Primary ENT 1 Dorian Merrill MD ENT 1 Isa Jimenez MD Resident - Assisting ENT 1 Special Needs Supine, STORZ VIDEO TOWER, LARYNGEAL TELESCOPES, LEICA Laryngeal Microscope W/ 400 MM LENS RLN monitoring,DS 08/12 documented in this encounter Social History Tobacco [...] COVID-19? No / Unsure 08/17/2020 11:32 AM VARNISH FILTERER documented as of this encounter Last Filed Vital Signs Vital Sign Reading Time Taken Comments Blood Pressure 138/75 08/19/2020 6:15 AM VARNISH FILTERER Pulse 58 08/19/2020 6:15 AM VARNISH FILTERER Temperature 36.2 ??C (97.2 ??F) 08/19/2020 5:45 AM CS T Respiratory Rate 19 08/19/2020 6:15 AM VARNISH FILTERER Oxygen Saturation 98% 08/19/2020 6:15 AM VARNISH FILTERER Inhaled Oxygen Concentration - - Weight 69.9 kg (154 lb) 08/19/2020 5:45 AM VARNISH FILTERER Height 154.9 cm (5' 1) 08/19/2020 5:45 AM VARNISH FILTERER Body Mass Index 29.1 08/19/2020 5:45 AM VARNISH FILTERER documented in this encounter Functional Status Functional [...] Discharge Summary Elizabeth Caicedo 60 year old [id number] Admit Date: 08/19/2020 Discharge Date and time: [...] at that time. Call our clinic at [phone] to confirm or to reschedule that appointment. [...] 3 grams of acetaminophen (a component of Tylenol,[place], Percocet) over a 24 hour period. ?? [...] our office and/or call the ENT resident immigration attorney after hours if you develop fevers, chills, [...] nearest Emergency Room and call the hospital ball truing machine operator at [phone] dial 0 and ask for the ENT resident immigration attorney. Request an appointment with Speech Therapy? Yes [...] questions or concerns During business hours call: [phone] After 5 pm or on weekends call: and ask for the ENT resident immigration attorney. Fabian Flores MD ISH FILTERER documented in this encounter Discharge Instructions * Discharge Instructions* Fabian Flores MD - 08/29/2020 7:43 AM VARNISH FILTERER Follow up with Dr. Comer in 2 weeks on Wednesday09/11/20 at 2:15 PM. Obtain blood work (renal function panel) at that time. Call our clinic at [phone] to confirm or to reschedule that appointment. [...] 3 grams of acetaminophen (a component of Tylenol,[place], Percocet) over a 24 hour period. Diet: [...] our office and/or call the ENT resident immigration attorney after hours if you develop fevers, chills, [...] nearest Emergency Room and call the hospital ball truing machine operator at [phone] dial 0 and ask for the ENT resident immigration attorney. ISH FILTERER documented in this encounter Medications at Time [...] times daily 30 capsule 1 08/29/2020 10/03/2020 [id number]-[id number]-lwvu [id number] MG tablet Take 1 tablet by [...] fluticasone propionate (FLONASE) 50 MCG/ACT nasal spray [place] 2 sprays into each nostril 16 g 09/06/2019 04/11/2021 gabapentin (NEURONTIN) 300 MG capsuleIndications:Nicole favio osteoarthritis of left hip TAKE 1 CAPSULE BY MOUTH THREE TIMES A DAY 90 capsule 5 03/08/2020 09/06/2020 [id number]-C -HYAL PO Take 1 tablet by mouth 3 times daily 06/13/2023 levothyroxine (SYNTHROID) 112 MCG tablet Take 1 (one) tablet by mouth once daily 30 tablet 1 08/30/2020 10/14/2020 meloxicam (MOBIC) 7.5 MG tablet TAKE 1 TABLET BY MOUTH EVERY DAY 60 tablet 2 07/16/2020 01/13/2021 [place]-3 Fatty Acids (FISH OIL) 1000 MG capsule [...] of this encounter Progress Notes * Charity Kwan CPhT - 08/29/2020 9:24 AM CST MEDICATION TO [...] questions, please contact the outpatient pharmacy at [phone]. Charity Kwan CPhT [facility] at [address] [place], [place] [address] Hours of Operation Wednesday - Wednesday: 8:00am to 6:00pm Wednesday: 9:00am to 1:00pm Epic: [facility] *Ensure the patient and clinic's nearby ZIP codes box is unchecked* ISH FILTERER * aDiana Garcia RN - 08/29/2020 3:04 AM CST Problem: Fall Risk Goal: Fall risk and fall related injury risk are minimized (interventions related to the fall risk can be found in the flowsheet documentation) Outcome: Progressing Problem: Pain/Discomfort Goal: Patient exhibits reduced pain/discomfort as evidenced by pain scores Outcome: Progressing Problem: Thrombocytopenia/Bleeding Precautions Goal: Excessive bleeding will be minimized Outcome: Progressing ISH FILTERER * Ros Gonzalez MITCHELL - 08/28/2020 2:29 PM CST [facility] Occupational Therapy Progress Note Patient: Elizabeth Caicedo [facility] Record Number: [id number] Date of : 1960 Age: [age] year [...] Patient will perform bed to chair?Independently ?? Prison Goal: Patient to be independent/baseline with functional mobility and self care and be able to safely discharge to prior level of care ?? If patient is discharged from the facility, this note serves as a discharge note if further occupational therapy visits did not occur. Following therapy session, patient left sitting EOB with good safety, daughter in room, call light close. ISH FILTERER * Munira Bates DO - 08/28/2020 12:38 [...] attending Dr. Dianna Bates DO Endocrinology Fellow ISH FILTERER * Vince Willingham MD - 08/28/2020 12:06 [...] miralax daily PT/OT, activity: AAT, PT/OT ordered BIOINFORMATICS ENGINEER: continue eval VTE Prophy: SCDs, q8h HSQ Endo/thyroid/parathyroid: f/u endo recs as above Drains: AGUSTÍN drains bilateral to bulb (LIS if not holding) Wound care: baci to incisions BID Stitches: bilateral necks, right medial incision opened 08/20 needs: likely needs HH Dispo: Floor Follow up: ENT- to be determined Endocrine- 6 weeks post surgery Vince Willingham MD Otolaryngology-Head and Neck Surgery 08/28/20 ISH FILTERER * Vincent Bird RN - 08/28/2020 11:20 [...] Excessive bleeding will be minimized Outcome: Progressing ISH FILTERER * Kareen Barrera PT - 08/28/2020 11:00 AM CST [facility] PhysicalTherapy Progress Note Patient: Elizabeth Caicedo [facility] Record Number: [id number] Date of : 1960 Age: [age] year [...] AD Patient will ascend/descend 4 steps: Independent Chocolate Dipper Goal(s): Patient to be independent/baseline with functional [...] prior to getting up, RN, Vincent, informed. ISH FILTERER * Kathleen Bates RN - 08/27/2020 10:11 [...] measures taken to prevent bleeding Outcome: Progressing ISH FILTERER * Ying Tabares PT - 08/27/2020 1:19 PM CST [facility] Department of Physical Medicine & Rehabilitation Progress Note Patient: Elizabeth Caicedo [facility] Record Number: [id number] Date of : 1960 Age: [age] year [...] at this time. Will continue to follow. ISH FILTERER * Charisma Truong, OT - 08/27/2020 10:59 AM CST [facility] Occupational Therapy Progress Note Patient: Elizabeth Caicedo [facility] Record Number: [id number] Date of : 1960 Age: [age] year [...] Patient will perform bed to chair?Independently ?? Prison Goal: Patient to be independent/baseline with functional [...] within reach and with Christa FERRIS aware. ISH FILTERER * Christa Crawford RN - 08/27/2020 7:47 [...] measures taken to prevent bleeding Outcome: Progressing ISH FILTERER * Fabian Flores MD - 08/27/2020 7:27 [...] miralax daily PT/OT, activity: AAT, PT/OT ordered BIOINFORMATICS ENGINEER: continue eval VTE Prophy: SCDs, q8h HSQ [...] Head and Neck Surgery 08/27/20 7:27 AM ISH FILTERER * Daiana Garcia RN - 08/26/2020 9:07 [...] as evidenced by pain scores Outcome: Progressing ISH FILTERER * Jessica Merritt RN - 08/26/2020 4:12 PM CST Referrals sent for [facility]. Ketan with [facility] for DME needs. ISH FILTERER * Munira Bates DO - 08/26/2020 3:29 PM CST [facility] Endocrinology Progress note Subjective: Taking in more [...] Data: CBC: Recent Labs Component Name 08/26/20 00408/25/20 0416 08/24/20 0005 WBC 10.2 9.6 11.6* RBC 4.31 4.53 4.28 HGB 12.6 13.1 12.5 HCT 38.4 40.6 37.8 BMP: Recent Labs Component Name 08/26/20 00408/25/20 0416 08/24/20 0005 NA 144 141 142 CL 99 97* 96* CO2 33* 32* 34* BUN 9 13 8 CREATININE 0.6 0.7 0.5* CALCIUM 7.4* 7.9* 8.3* LFTs: Recent Labs Component Name 08/26/204008/25/20 0416 08/24/20 0005 03/07/20 1519 03/07/20 1519 AST - - - - 23 ALT - - - - 26 ALKPHOS - - - - 94 TBILI - - - - 0.5 ALB 2.8* 2.8* 2.9* - 3.8 - = values in this interval not displayed. Magnesium: No results for input(s): MG in the last 03811 hours. Phosphorus: Recent Labs Component Name 08/26/20 00408/25/20 0416 08/24/20 0005 PHOS 4.8* 6.0* 6.0* [...] Endocrinology Fellow D/w my attending Dr. Bustamante ISH FILTERER Associated attestation - Yosi Bustamante MD - 08/26/2020 3:55 PM VARNISH FILTERER I HAVE SEEN AND EXAMINED THE PATIENT [...] and non-pharmacological pain management strategies. Outcome: Progressing ISH FILTERER * Lashon Barrow PT - 08/26/2020 11:33 AM CST [facility] PhysicalTherapy Progress Note Patient: Elizabeth Caicedo [facility] Record Number: [id number] Date of : 1960 Age: [age] year [...] AD Patient will ascend/descend 4 steps: Independent Chocolate Dipper Goal(s): Patient to be independent/baseline with functional mobility and self care and be able to safely discharge to prior level of care ?? Update Treatment Plan: Continue as per plan If patient is discharged from the facility, this note serves as a discharge note if further physical therapy visits did not occur. Following therapy session, patient left in bed. ISH FILTERER * Charisma Truong OT - 08/26/2020 10:09 AM CST [facility] Occupational Therapy Progress Note Patient: Elizabeth Caicedo Med Record Number: [id number] Date of : 1960 Age: [age] year [...] will perform bed to chair Independently ?? Chocolate Dipper Goal: Patient to be independent/baseline with functional [...] call light within reach and with RN, Krissy aware. ISH FILTERER * Juliette Parrish RD/CANDE - 08/26/2020 9:07 [...] medically able Monitor nutrition per nutrition guidelines. ISH FILTERER * Vince Willingham MD - 08/26/2020 7:02 [...] Temp (30hrs) Max:98.5 ??F (36.9 ??C) Vitals: 08/25/20195708/25/20 2017 08/26/20 0005 08/26/20 0420 BP: 126/71 129/67 144/88 Pulse: 72 77 72 Resp: 20 18 18 18 Temp: 98.5 ??F (36.9 ??C) [...] miralax daily PT/OT, activity: AAT, PT/OT ordered BIOINFORMATICS ENGINEER: continue eval VTE Prophy: SCDs, q8h HSQ [...] Head and Neck Surgery 08/26/20 7:03 AM ISH FILTERER * Daiana Garcia RN - 08/25/2020 11:16 PM CST Problem: Pain/Discomfort Goal: Patient exhibits reduced pain/discomfort as evidenced by pain scores 08/25/2020 2315 by Daiana Garcia RN Outcome: Progressing 08/25/2020 2312 by Daiana Garcia RN Outcome: Progressing Problem: Thrombocytopenia/Bleeding Precautions Goal: Excessive bleeding will be minimized Outcome: Progressing ISH FILTERER * Krissy Mendoza RN - 08/25/2020 12:17 [...] to engage in desired activity. Outcome: Progressing ISH FILTERER * Munira Bates DO - 08/25/2020 9:25 AM CST Endocrinology Plan of care Note Calcium trend reviewed Phosphorus increasing Ca corrected for albumin above 8 today. Recommendation: Would hold on the Iv Ca for today and adjust po regimen Increase Oscal to 2 tabs TID Continue Calcitriol 0.5 mcg BID Continue levothyroxine 112 mcg daily Pathology pending Munira Bates DO Endocrinology Fellow ISH FILTERER * Fabian Flores MD - 08/25/2020 9:08 [...] Temp (30hrs) Max:99.2 ??F (37.3 ??C) Vitals: 08/24/20 2104 08/25/20 0023 08/25/20 0355 08/25/20 0825 BP: 147/79 [...] miralax daily PT/OT, activity: AAT, PT/OT ordered BIOINFORMATICS ENGINEER: continue eval VTE Prophy: SCDs, q8h HSQ [...] Head and Neck Surgery 08/25/20 9:09 AM ISH FILTERER * Samuel Pena RN - 08/25/2020 12:35 AM CST Problem: Tobacco Use Goal: Inpatient tobacco-use cessation counseling participation Outcome: Progressing Problem: Fall Risk Goal: Fall risk and fall related injury risk are minimized (interventions related to the fall risk can be found in the flowsheet documentation) Outcome: Progressing ISH FILTERER * Colton Khan MD - 08/24/2020 4:11 [...] Head & Neck Surgery 08/24/2020 4:16 PM ISH FILTERER * Libia Yanez RN - 08/24/2020 7:37 [...] find him. Report given to Lizy FERRIS. ISH FILTERER * Fabian Flores MD - 08/24/2020 6:58 [...] 152/82 158/87 Pulse: 80 76 80 Resp: 18 20 Temp: 98.5 ??F (36.9 ??C) 98.9 [...] in) - Continue modified consistency diet (per BIOINFORMATICS ENGINEER recs), may consider d/cing Dobhoff tube if [...] senokot daily PT/OT, activity: AAT, PT/OT ordered BIOINFORMATICS ENGINEER: saw 08/23-recommending modified consistency diet VTE Prophy: SCDs, q8h HSQ Endo/thyroid/parathyroid: f/u endo recs as above Drains: AGUSTÍN drains bilateral to bulb (LIS if not holding) Wound care: baci to incisions BID Stitches: bilateral necks, right medial incision opened 08/20 Trach: none SW needs: likely needs Dispo: Transfer to Floor Follow up: ENT- to be determined Endocrine- 6 weeks post surgery Fabian Flores MD PGY-3 Otolaryngology - Head and Neck Surgery 08/24/20 7:47 AM ISH FILTERER * Lashon Barrwo, PT - 08/23/2020 3:46 PM CST [facility] Physical Therapy Initial Evaluation Note Patient: Elizabeth Caicedo Med Record Number: [id number] Date of : 1960 Age: [age] year [...] AD Patient will ascend/descend 4 steps: Independent Chocolate Dipper Goal(s): Patient to be independent/baseline with functional [...] alarm on and with calllight within reach ISH FILTERER * Munira Bates, DO - 08/23/2020 2:08 PM CST U [...] place Data: CBC: Recent Labs Component Name 08/22/20234908/21/20234308/20/20 2324 WBC 13.1* 10.3 12.6* RBC 3.91 3.94 4.41 HGB 11.4* 11.4* 12.9 HCT 35.4 35.7 40.2 BMP: Recent Labs Component Name 08/23/2042708/22/20 23508/22/20 1105 NA 142 145 145 CL 98 99 99 CO2 32* 35* 33* BUN 7 6* 6* CREATININE 0.5* 0.6 0.5* CALCIUM 7.3* 7.6* 7.5* LFTs: Recent Labs Component Name 08/23/2042708/22/20 1105 03/07/20 1519 AST - - 23 ALT - - 26 ALKPHOS - - 94 TBILI - - 0.5 ALB 2.8* 3.0* 3.8 Magnesium: No results for input(s): MG in the last 90516 hours. Phosphorus: Recent Labs Component Name 08/22/20234908/22/20 11008/21/20 2344 PHOS 5.0* 4.9* 4.4 Thyroid studies: [...] Endocrinology Fellow D/w my attending Dr. Bustamante ISH FILTERER Associated attestation - Yosi Bustamante MD - 08/23/2020 2:32 PM VARNISH FILTERER I HAVE SEEN AND EXAMINED THE PATIENT WITH THE ENDOCRINE FELLOW AND I AGREE WITH THE FINDINGS AND PLAN OF CARE DOCUMENTED BY THE ENDOCRINE FELLOW DATE OF SERVICE 08/23/2020 Signed electronically Yosi Bustamante MD Professor of Internal Medicine * Kym Priest OT - 08/23/2020 1:44 PM CST [facility] Occupational Therapy Initial Evaluation Note Patient: Elizabeth Caicedo [facility] Record Number: [id number] Date of : 1960 Age: [age] year [...] Patient will perform bed to chair Independently Prison Goal: Patient to be independent/baseline with functional mobility and self care and be able to safely discharge to prior level of care If patient is discharged from the facility, this note serves as a discharge summary if further occupational therapy visits did not occur. Following therapy session, patient left in patient bedside chair, with call light within reach and with RNAndria. ISH FILTERER * Wilian La MD - 08/23/2020 11:20 [...] floor - Start modified consistency diet (per BIOINFORMATICS ENGINEER recs) - PRN oxycodone for pain management [...] senokot daily PT/OT, activity: AAT, PT/OT ordered BIOINFORMATICS ENGINEER: saw 08/23-recommending modified consistency diet VTE Prophy: SCDs, q8h HSQ Endo/thyroid/parathyroid: f/u endo recs as above Drains: AGUSTÍN drains bilateral to LIS Wound care: baci to incisions BID Stitches: bilateral necks, right medial incision opened 08/20 Trach: none SW needs: likely needs HH Dispo: Floor F/u: ENT- to be determined Endocrine- 6 weeks post surgery Sharif La MD Otolaryngology Head & Neck Surgery PGY-2 08/23/2020 ISH FILTERER * Myra Ignacio, BIOINFORMATICS ENGINEER - 08/23/2020 8:50 AM CST [facility] Speech Language Pathology Speech Pathology Swallow Therapy Patient: Elizabeth Caicedo [facility] Record Number [id number] Date of : 1960 Age: [age] year [...] visits did not occur. Myra Ignacio MA, CCC-BIOINFORMATICS ENGINEER, B[employer]-S Speech Language Pathologist Department of Otolaryngology- Head and Neck Surgery ISH FILTERER * Munira Bates, DO - 08/22/2020 10:25 AM CST [facility] Endocrinology Progress note Subjective: Sleeping, not present this am when seen, d/w primary team on phone Objective: Vitals: BP 170/86 Pulse 67 Temp 98.9 ??F (37.2 ??C) (Oral) Resp 9 Ht 5' 1 (1.549 m) Wt 154 lb (69.9 kg) SpO2 93% BMI 29.1 kg/m2 Exam: Gen: sleeping, no distress, drains in place Data: CBC: Recent Labs Component Name 08/21/20234308/20/20232308/19/202347 WBC 10.3 12.6* 15.3* RBC 3.94 4.41 4.82 HGB 11.4* 12.9 14.3 HCT 35.7 40.2 43.7 BMP: Recent Labs Component Name 08/21/20234308/20/20232308/19/20 2348 NA 144 136 137 CL 101 98 103 CO2 34* 30* 24 BUN 5* 7 10 CREATININE 0.6 0.7 0.7 CALCIUM 8.2* 8.2* 7.7* LFTs: Recent Labs Component Name 03/07/20 1519 AST 23 ALT 26 ALKPHOS 94 TBILI 0.5 ALB 3.8 Magnesium: No results for input(s): MG in the last 11508 hours. Phosphorus: Recent Labs Component Name 08/21/20234308/20/20232308/19/208 PHOS 4.4 4.5 6.5* Thyroid studies: Assessment: [...] will make follow up arrangements Munira Bates, Endocrinology Fellow D/w my attending Dr. Bustamante ISH FILTERER Associated attestation - Yosi Bustamante MD - 08/22/2020 11:00 AM VARNISH FILTERER I HAVE SEEN AND EXAMINED THE PATIENT WITH THE ENDOCRINE FELLOW AND I AGREE WITH THE FINDINGS AND PLAN OF CARE DOCUMENTED BY THE ENDOCRINE FELLOW DATE OF SERVICE 08/22/2020 Signed electronically Yosi Bustamante MD Professor of Internal Medicine * Beatriz Aguero RN - 08/22/2020 10:01 AM CST A Chart Review has been conducted by Case Management. Insurance: [facility]- Anticipated level of care at discharge: Unknown Anticipate Home with Home Care Pending Therapy evaluations when appropriate per ENT. Discharge Plan: Anticipate Home with Home Care Basic Needs Assessment (BNA) Score: 7 PCP: Taniya Grimes MD ; Pager: [phone]; Per nursing assessments: 08/19/20 admit 60 year [...] and thyroid mass with tracheal involvement. [facility] Pending DC disposition [place] Insurance Pest Control Applicator/Support: [employer] [place] Spouse Home/Functional Status: Functional and Cognitive Status [...] For any questions or needs please contact: Digital Marketing Analyst Name/Phone number: Beatriz Aguero RN., ICU x [phone] ISH FILTERER * Myra Ignacio SLP - 08/22/2020 9:41 AM CST [facility] Physical Medicine and Rehabilitation Speech Therapy Bedside Swallow Evaluation Patient: Elizabeth Caicedo [facility] Record Number: [id number] Date of : 1960 Age: [age] year [...] with no further need for assessment. IMPRESSIONS: Elizabeth Ciacedo presents with oropharyngeal dysphagia secondary to thyroid [...] demonstrate understanding of swallow guidelines and strategies. Prison Goal (s): Patient to be independent/baseline with [...] least twice each day Myra Ignacio MA, CCC-BIOINFORMATICS ENGINEER, [facility] Speech Language Pathologist Department of Otolaryngology- Head and Neck Surgery ISH FILTERER * Wilian La MD - 08/22/2020 7:24 [...] PT/OT, activity: AAT, hold PT/OT for now BIOINFORMATICS ENGINEER: TBD VTE Prophy: SCDs, q8h HSQ Endo/thyroid/parathyroid: f/u endo recs as above Drains: AGUSTÍN drains bilateral to LIS Wound care: baci to incisions BID Stitches: bilateral necks, right medial incision opened 08/20 Trach: none SW needs: likely needs HH Dispo: 3ICU F/u: ENT- to be determined Endocrine- 6 weeks post surgery Sharif La MD Otolaryngology Head & Neck Surgery PGY-2 08/22/2020 ISH FILTERER * Munira Bates DO - 08/21/2020 4:27 PM CST [facility] [...] intact Data: CBC: Recent Labs Component Name 08/20/20232308/19/20 2348 08/01/20 1627 WBC 12.6* 15.3* 9.0 RBC 4.41 4.82 4.91 HGB 12.9 14.3 14.2 HCT 40.2 43.7 43.5 BMP: Recent Labs Component Name 08/20/20232308/19/20 2348 08/01/20 1627 NA 136 137 141 CL 98 103 100 CO2 30* 24 32* BUN 7 10 12 CREATININE 0.7 0.7 0.8 CALCIUM 8.2* 7.7* 9.4 LFTs: Recent Labs Component Name 03/07/20 1519 AST 23 ALT 26 ALKPHOS 94 TBILI 0.5 ALB 3.8 Magnesium: No results for input(s): MG in the last 84676 hours. Phosphorus: Recent Labs Component Name 08/20/20 2324 08/19/20 2348 PHOS 4.5 6.5* Thyroid studies: Assessment: Hypocalcemia [...] follow up arrangements Munira Bates DO Endocrinology ISH FILTERER Associated attestation - Yosi Bustamante MD - 08/21/2020 8:05 PM VARNISH FILTERER I HAVE SEEN AND EXAMINED THE PATIENT [...] ( +) NO PARESTHESIAS LAB Results for ELIZABETH CAICEDO ( ) as of 08/21/2020 19:51 Ref. Range 03/07/2020 15:19 08/20/2020 05:08 Hemoglobin A1c Latest Ref Range: 4.4 - 6.3 % 5.5 Estimated Average Glucose Latest Units: mg/dL 111 PTH Intact Latest Ref Range: 8.0 - 77.0 pg/mL <4.0 (L) TSH Latest Ref Range: 0.350 - 4.940 uIU/mL 1.520 Results for ELIZABETH CAICEDO ( ) as of 08/21/2020 19:51 Ref. [...] [] vitamin D (ergocalciferol) (DRISDOL) 1.25 MG (10583 UT) capsule 50,000 Units, Oral, Once CONTINUOUS [...] W infused over 12 hours), Vit. D 89070 Units x1 Daily Labs: CBC, BMP, Mg, Phos daily, q6h iCal q12 hours- calcium, albumin, phosphorous, magnesium Other labs- thyroglobulin reflex profile, vitamin D Diet: NPO for now Bowel Regimen: senokot daily PT/OT, activity: AAT, hold PT/OT for now BIOINFORMATICS ENGINEER: TBD VTE Prophy: SCDs, q8h HSQ Endo/thyroid/parathyroid: f/u endo recs as above Drains: AGUSTÍN drains bilateral to LIS Wound care: baci to incisions BID Stitches: bilateral necks, right medial incision opened 08/20 Trach: none SW needs: likely needs Dispo: 3ICU F/u: ENT- to be determined Endocrine- 6 weeks post surgery Isa Jimenez MD ISH FILTERER * Fabian Flores MD - 08/20/2020 8:09 [...] PT/OT, activity: AAT, hold PT/OT for now BIOINFORMATICS ENGINEER: TBD VTE Prophy: SCDs, q8h HSQ Endo/thyroid/parathyroid: will consult Endocrine regarding calcium levels, thyroid replacement, appreciate recs Drains: AGUSTÍN drains bilateral to LIS Wound care: baci to incisions BID Stitches: bilateral necks, right medial incision opened at bedside today Trach: none SW needs: likely needs HH Dispo: 3ICU Fabian Flores MD PGY-3 Otolaryngology - Head and Neck Surgery 08/20/20 8:27 AM ISH FILTERER * Mariah King RN - 08/20/2020 4:57 AM CST Ongoing ISH FILTERER documented in this encounter H&P Notes * [...] COMPLEX) tablet Take by mouth DAILY. ??? iqetqrq-qnuxydrma-oeri 333-133-5 MG tablet Take 1 tablet by [...] fluticasone propionate (FLONASE) 50 MCG/ACT nasal spray [place] 2 sprays into each nostril 16 g 0 ??? gabapentin (NEURONTIN) 300 MG capsule TAKE 1 CAPSULE BY MOUTH THREE TIMES A DAY (Patient takingdifferently: Take 300 mg by mouth 3 times daily ) 90 capsule 5 ??? RWEEHK-IAXZLRFLF-EBP-C-HYAL PO Take 1 tablet by mouth 3 times daily ??? meloxicam (MOBIC) 7.5 MG tablet TAKE 1 TABLET BY MOUTH EVERY DAY 60 tablet 2 ??? 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 + smoker Denies family hx of thyroid [...] No Yes Sig: Take by mouth DAILY. YEEIPV-CBBKYMQIX-VPZ-C-HYAL PO 08/17/2020 Yes No Sig: Take 1 tablet by mouth 3 times daily Lakota-3 Fatty Acids (FISH OIL) 1000 MG capsule [...] Take 1 tablet by mouth at bedtime hxcbobo-jmjgookdd-xqpl 333-133-5 MG tablet 08/17/2020 Yes No Sig: [...] spray 08/19/2020 at 0330 Yes Yes Sig: [place] 2 sprays into each nostril gabapentin (NEURONTIN) [...] fluticasone propionate (FLONASE) 50 MCG/ACT nasal spray [place] 2 sprays into each nostril ??? gabapentin [...] extremities well CBC: Recent Labs Component Name 08/19/208 08/01/207 03/07/20 1519 WBC 15.3* 9.0 7.9 RBC 4.82 4.91 4.54 HGB 14.3 14.2 13.3 HCT 43.7 43.5 40.5 BMP: Recent Labs Component Name 08/19/208 08/01/20 1627 03/07/20 1519 NA 137 141 143 CL 103 100 106 CO2 24 32* 33* BUN 10 12 13 CREATININE 0.7 0.8 0.8 CALCIUM 7.7* 9.4 8.8 LFTs: Recent Labs Component Name 03/07/20 1519 AST 23 ALT 26 ALKPHOS 94 TBILI 0.5 ALB 3.8 Magnesium: No results for input(s): MG in the last 67641 hours. Phosphorus: Recent Labs Component Name 08/19/20 2348 PHOS 6.5* Thyroid studies: Lab results smartLinks are not currently available Recent Labs Component Name 03/07/20 1519 HGBA1C 5.5 Recent Labs Component Name 03/07/20 1519 TSH 1.520 No results for input(s): MICROALBCREA in the last 18781 hours. Recent Labs Component Name 03/07/20 1519 HGBA1C 5.5 Recent Labs Component Name 08/19/20 2348 08/01/20 1627 03/07/20 1519 POTASSIUM 4.5 3.9 3.9 CO2 24 32* 33* BUN 10 12 13 CREATININE 0.7 0.8 0.8 GLUCOSE 204* 82 57* CALCIUM 7.7* 9.4 8.8 Recent Labs Component Name 03/07/20 1519 CHOL 150 TRIG 93 HDL 51 LDLCALC 80 FINE NEEDLE ASPIRATION - THYROID (STL): [id number] Order: [id number] Collected: 04/18/2020 ??4:07 PM Status: Final result ?Visible to patient: No (not released) Dx: Thyroid nodule Component Specimen Adequacy Adequate cellularity for evaluation. Final Diagnosis Thyroid nodule, right, US-FNA: - Benign - Consistent with benign follicular nodule FINE NEEDLE ASPIRATION - THYROID (STL): [id number] Order: [id number] Collected: 08/01/2020 ??2:51 PM Status: Final result [...] were determined by the Histopathology Laboratory of [facility]. Some of these tests rely on the use of analyte-specific reagents and are subject to specific labeling requirements by the [place] Food and Drug Administration. Such tests were developed by the Histology Laboratory of [facility] and have not been cleared or approved [...] TR 4 nodule, recommend short-term follow-up (image [id number]). The second nodule is well-circumscribed, hypoechoic, solid nodule, measuring 0.6 x 0.6 x 0.3 cm; this is a TR 4 nodule, which is not suspicious (image [id number]). ?? The isthmus is mildly thickened. Vascularity [...] in office for this patient Munira Bates, Endocrinology, Diabetes & Metabolism ISH FILTERER Associated attestation - Yosi Bustamante MD - 08/20/2020 4:19 PM VARNISH FILTERER I HAVE SEEN AND EXAMINED THE PATIENT [...] everywhere and media and results section in [facility] Results for ELIZABETH CAICEDO ( ) as [...] Release to patient Immediate Isa Jimenez MD ISH FILTERER Associated attestation - Dionte Comer MD - 08/19/2020 4:13 PM VARNISH FILTERER I have reviewed the above brief operative note as entered by the resident and agree with the above description; however, for the most definitive information providers should refer to the full operative note as dictated. Edmar Comer MD * Operative - Dorian Merrill MD - 08/19/2020 8:34 AM CST [facility] DIVISION OF PEDIATRIC OTOLARYNGOLOGY- HEAD & NECK SURGERY OPERATIVE REPORT PATIENT NAME: Elizabeth Caicedo DATE OF : 1960 CSN: [id number] DATE OF OPERATION: 08/19/2020 0730 Pre Operative Diagnoses: Thyroid cancer with tracheal invasion Post Operative Diagnoses: Same Procedure: Cricotracheal resection and re-anastomosis Surgeon: Dorian Merrill M.D. Supervisor Blood Donor Recruiters: Isa Jimenez M.D. Anesthesia: General Indications: Elizabeth [...] and a sergo was placed in the democrat wall. A vertical incision was made in [...] none Postop Disposition/Plan: - Per Dr. Comer ISH FILTERER * Operative - Dionte Comer MD - [...] Bilateral modified radical neck dissection, CPT code 96014-39. 2. Total thyroidectomy with central neck dissection and tracheal resection and esophageal muscle resection, CPT code 27556. 3. Parathyroid implantation of the right deltoid, CPT code 33977. 4. Laryngoscopy, diagnostic, CPT code 01103. 5. Rigid esophagoscopy, diagnostic, CPT code 53145. SURGEON: Edmar Comer MD HOME AND FAMILY LIVING PROFESSOR: Isa Jimenez MD ESTIMATED BLOOD LOSS: 125 [...] controlled utilizing multiple 2-0 silk sutures in hfymfe-dr-fzoam fashion. We checked this area again twice, [...] for completion of the resection cuts with Dr. Merrill, en left this in place, and began to [...] tumor, and as I dissected across thecommon democrat wall, we decided to make our anterior [...] paratracheal mass, query parathyroid for frozen. DRAINS: Sergo to the central neck and 19-[place] round to each lateral deep neck. COMPLICATIONS: None. DISPOSITION: Recovery and then intensive care unit. Dionte Comer MD /[facility].[id number] Doc ID: [id number] Voice Job ID: [id number] ISH FILTERER documented in this encounter Miscellaneous Notes * [...] Diagnosis (specify): ____Clinically undetermined/unknown ____Edmar Comer MD, [facility] Physician Signature Date/Time 09/03/2020 This is part of the medical record ISH FILTERER documented in this encounter Plan of Treatment Upcoming Encounters Date Type Department Care Team (Late st Contact Info) Description 07/25/2024 10:00 AM VARNISH FILTERER Office Visit [facility] - Endocrinology [address] [place] [phone] Yosi Bustamante MD [address] [place] [address] 2L [place] [address] 07/26/2024 10:00 AM VARNISH FILTERER Appointment [facility] [address] [place] [address] Neri Delgado MD [address] [place] [phone] 07/26/2024 10:00 AM VARNISH FILTERER Office Visit [facility] - ENT [address] [place] [phone] Myra Farmer, BIOINFORMATICS ENGINEER [address] [place] [address] 2L [place] [phone] 07/26/2024 11:15 AM VARNISH FILTERER Office Visit [facility] - ENT [address] [place] [phone] Neri Delgado MD [address] [place] [phone] 08/02/2024 2:20 PM VARNISH FILTERER Appointment [facility] [address] [place] [address] 08/02/2024 3:00 PM VARNISH FILTERER Office Visit [facility] - Hematology/Oncology [address] [place] [phone] Remi Beckett MD [address] [place] [phone] 08/18/2024 1:45 PM VARNISH FILTERER Office Visit [facility] - ENT [address] [place] [phone] Neri Delgado MD [facility] [place] [address] documented as of this encounter Procedures Procedure Name Priority Date/Time Associated Diagnosis Comments CALCIUM IONIZED WHOLE BLOOD Routine 08/29/2020 4:08 AM VARNISH FILTERER PTH INTACT W/O CALCIUM AM Draw 08/29/2020 4:08 AM VARNISH FILTERER CBC W/O DIFFERENTIAL Routine 08/29/2020 4:08 AM VARNISH FILTERER BASIC METABOLIC PANEL (CALCIUM TOTAL) Routine 08/29/2020 4:08 AM VARNISH FILTERER PHOSPHORUS BLOOD Routine 08/29/2020 4:08 AM VARNISH FILTERER MAGNESIUM BLOOD Routine 08/29/2020 4:08 AM VARNISH FILTERER ALBUMIN BLOOD Routine 08/29/2020 4:08 AM VARNISH FILTERER CALCIUM IONIZED WHOLE BLOOD Routine 08/28/2020 9:42 PM VARNISH FILTERER CALCIUM IONIZED WHOLE BLOOD Routine 08/28/2020 4:05 PM VARNISH FILTERER CALCIUM IONIZED WHOLE BLOOD Routine 08/28/2020 11:54 AM VARNISH FILTERER CALCIUM IONIZED WHOLE BLOOD Routine 08/28/2020 5:49 AM VARNISH FILTERER PTH INTACT W/O CALCIUM AM Draw 08/28/2020 5:49 AM VARNISH FILTERER CBC W/O DIFFERENTIAL Routine 08/28/2020 5:49 AM VARNISH FILTERER BASIC METABOLIC PANEL (CALCIUM TOTAL) Routine 08/28/2020 5:49 AM VARNISH FILTERER PHOSPHORUS BLOOD Routine 08/28/2020 5:49 AM VARNISH FILTERER MAGNESIUM BLOOD Routine 08/28/2020 5:49 AM VARNISH FILTERER ALBUMIN BLOOD Routine 08/28/2020 5:49 AM VARNISH FILTERER CALCIUM IONIZED WHOLE BLOOD Routine 08/27/2020 4:53 PM VARNISH FILTERER GLUCOSE - POINT OF CARE Routine 08/27/2020 4:27 PM VARNISH FILTERER CALCIUM IONIZED WHOLE BLOOD Routine 08/27/2020 11:41 AM VARNISH FILTERER CALCIUM IONIZED WHOLE BLOOD Routine 08/27/2020 5:48 AM VARNISH FILTERER PTH INTACT W/O CALCIUM AM Draw 08/27/2020 5:48 AM VARNISH FILTERER CBC W/O DIFFERENTIAL Routine 08/27/2020 5:48 AM VARNISH FILTERER BASIC METABOLIC PANEL (CALCIUM TOTAL) Routine 08/27/2020 5:48 AM VARNISH FILTERER PHOSPHORUS BLOOD Routine 08/27/2020 5:48 AM VARNISH FILTERER MAGNESIUM BLOOD Routine 08/27/2020 5:48 AM VARNISH FILTERER ALBUMIN BLOOD Routine 08/27/2020 5:48 AM VARNISH FILTERER CALCIUM IONIZED WHOLE BLOOD Routine 08/26/2020 4:20 PM VARNISH FILTERER CALCIUM IONIZED WHOLE BLOOD Routine 08/26/2020 11:35 AM VARNISH FILTERER CALCIUM IONIZED WHOLE BLOOD Routine 08/26/2020 6:43 AM VARNISH FILTERER CALCIUM IONIZED WHOLE BLOOD Routine 08/26/2020 12:41 AM VARNISH FILTERER PTH INTACT W/O CALCIUM AM Draw 08/26/2020 12:41 AM VARNISH FILTERER CBC W/O DIFFERENTIAL Routine 08/26/2020 12:41 AM VARNISH FILTERER BASIC METABOLIC PANEL (CALCIUM TOTAL) Routine 08/26/2020 12:41 AM VARNISH FILTERER PHOSPHORUS BLOOD Routine 08/26/2020 12:4 1 AM VARNISH FILTERER MAGNESIUM BLOOD Routine 08/26/2020 12:41 AM VARNISH FILTERER ALBUMIN BLOOD Routine 08/26/2020 12:41 AM VARNISH FILTERER CALCIUM IONIZED WHOLE BLOOD Routine 08/25/2020 4:06 PM VARNISH FILTERER CALCIUM URINE RANDOM Routine 08/25/2020 1:12 PM VARNISH FILTERER CALCIUM IONIZED WHOLE BLOOD Routine 08/25/2020 10:53 AM VARNISH FILTERER CALCIUM IONIZED WHOLE BLOOD Routine 08/25/2020 9:04 AM VARNISH FILTERER CALCIUM IONIZED WHOLE BLOOD Routine 08/25/2020 4:16 AM VARNISH FILTERER PTH INTACT W/O CALCIUM AM Draw 08/25/2020 4:16 AM VARNISH FILTERER CBC W/O DIFFERENTIAL Routine 08/25/2020 4:16 AM VARNISH FILTERER BASIC METABOLIC PANEL (CALCIUM TOTAL) Routine 08/25/2020 4:16 AM VARNISH FILTERER PHOSPHORUS BLOOD Routine 08/25/2020 4:16 AM VARNISH FILTERER MAGNESIUM BLOOD Routine 08/25/2020 4:16 AM VARNISH FILTERER ALBUMIN BLOOD Routine 08/25/2020 4:16 AM VARNISH FILTERER CALCIUM IONIZED WHOLE BLOOD Routine 08/24/2020 4:50 PM VARNISH FILTERER CALCIUM IONIZED WHOLE BLOOD Routine 08/24/2020 10:42 AM VARNISH FILTERER CALCIUM IONIZED WHOLE BLOOD Routine 08/24/2020 4:17 AM VARNISH FILTERER CALCIUM URINE RANDOM Routine 08/24/2020 2:48 AM VARNISH FILTERER CALCIUM IONIZED WHOLE BLOOD Routine 08/24/2020 12:05 AM VARNISH FILTERER PTH INTACT W/O CALCIUM AM Draw 08/24/2020 12:05 AM VARNISH FILTERER CBC W/O DIFFERENTIAL Routine 08/24/2020 12:05 AM VARNISH FILTERER BASIC METABOLIC PANEL (CALCIUM TOTAL) Routine 08/24/2020 12:05 AM VARNISH FILTERER PHOSPHORUS BLOOD Routine 08/24/2020 12:0 5 AM VARNISH FILTERER ALBUMIN BLOOD AM Draw 08/24/2020 12:05 AM VARNISH FILTERER CALCIUM IONIZED WHOLE BLOOD Routine 08/23/2020 5:31 PM VARNISH FILTERER OT EVAL AND TREAT Routine 08/23/2020 11: 25 AM VARNISH FILTERER CALCIUM IONIZED WHOLE BLOOD Routine 08/23/2020 10:49 AM VARNISH FILTERER MAGNESIUM BLOOD Routine 08/23/2020 10:49 AM VARNISH FILTERER CALCIUM URINE RANDOM Routine 08/23/2020 5:04 AM VARNISH FILTERER CALCIUM IONIZED WHOLE BLOOD Routine 08/23/2020 4:28 AM VARNISH FILTERER PTH INTACT W/O CALCIUM AM Draw 08/23/2020 4:28 AM VARNISH FILTERER BASIC METABOLIC PANEL (CALCIUM TOTAL) Add on 08/23/2020 4:28 AM VARNISH FILTERER ALBUMIN BLOOD AM Draw 08/23/2020 4:28 AM VARNISH FILTERER PREPARE RBC LEUKOREDUCED UNIT Routine 08/23/2020 2:17 AM VARNISH FILTERER CALCIUM IONIZED WHOLE BLOOD Routine 08/22/2020 11:50 PM VARNISH FILTERER CBC W/O DIFFERENTIAL Routine 08/22/2020 11:50 PM VARNISH FILTERER BASIC METABOLIC PANEL (CALCIUM TOTAL) Routine 08/22/2020 11:50 PM VARNISH FILTERER PHOSPHORUS BLOOD Routine 08/22/2020 11:5 0 PM VARNISH FILTERER CALCIUM IONIZED WHOLE BLOOD Routine 08/22/2020 4:36 PM VARNISH FILTERER CALCIUM IONIZED WHOLE BLOOD Routine 08/22/2020 11:05 AM VARNISH FILTERER RENAL FUNCTION PANEL STAT 08/22/2020 11:05 AM VARNISH FILTERER MAGNESIUM BLOOD Routine 08/22/2020 11:05 AM VARNISH FILTERER CALCIUM IONIZED WHOLE BLOOD Routine 08/22/2020 5:04 AM VARNISH FILTERER CBC W/O DIFFERENTIAL Routine 08/21/2020 11:44 PM VARNISH FILTERER BASIC METABOLIC PANEL (CALCIUM TOTAL) Routine 08/21/2020 11:44 PM VARNISH FILTERER PHOSPHORUS BLOOD Routine 08/21/2020 11:4 4 PM VARNISH FILTERER MAGNESIUM BLOOD Routine 08/21/2020 11:44 PM VARNISH FILTERER CALCIUM IONIZED WHOLE BLOOD Routine 08/21/2020 11:43 PM VARNISH FILTERER CALCIUM IONIZED WHOLE BLOOD Routine 08/21/2020 5:34 PM VARNISH FILTERER MAGNESIUM BLOOD Routine 08/21/2020 12:01 PM VARNISH FILTERER CALCIUM IONIZED WHOLE BLOOD Routine 08/21/2020 11:07 AM VARNISH FILTERER CALCIUM IONIZED WHOLE BLOOD Routine 08/21/2020 4:25 AM VARNISH FILTERER THYROGLOBULIN REFLEX PROFILE AM Draw 08/21/2020 4:25 AM VARNISH FILTERER THYROGLOBULIN BY ANTONIETA RFLXED Routine 08/21/2020 4:25 AM VARNISH FILTERER VITAMIN D 25-HYDROXY AM Draw 08/21/2020 4:25 AM VARNISH FILTERER CBC W/O DIFFERENTIAL Routine 08/20/2020 11:24 PM VARNISH FILTERER BASIC METABOLIC PANEL (CALCIUM TOTAL) Routine 08/20/2020 11:24 PM VARNISH FILTERER PHOSPHORUS BLOOD Routine 08/20/2020 11:2 4 PM VARNISH FILTERER MAGNESIUM BLOOD Routine 08/20/2020 11:24 PM VARNISH FILTERER CALCIUM IONIZED WHOLE BLOOD Routine 08/20/2020 11:04 PM VARNISH FILTERER CALCIUM IONIZED WHOLE BLOOD Routine 08/20/2020 5:46 PM VARNISH FILTERER CALCIUM IONIZED WHOLE BLOOD Routine 08/20/2020 11:41 AM VARNISH FILTERER CALCIUM IONIZED WHOLE BLOOD Routine 08/20/2020 5:08 AM VARNISH FILTERER PTH INTACT W/O CALCIUM AM Draw 08/20/2020 5:08 AM VARNISH FILTERER CALCIUM IONIZED WHOLE BLOOD Routine 08/19/2020 11:48 PM VARNISH FILTERER CBC W/O DIFFERENTIAL Routine 08/19/2020 11:48 PM VARNISH FILTERER BASIC METABOLIC PANEL (CALCIUM TOTAL) Routine 08/19/2020 11:48 PM VARNISH FILTERER PHOSPHORUS BLOOD Routine 08/19/2020 11:4 8 PM VARNISH FILTERER MAGNESIUM BLOOD Routine 08/19/2020 11:48 PM VARNISH FILTERER CALCIUM IONIZED WHOLE BLOOD Routine 08/19/2020 6:16 PM VARNISH FILTERER XR ABDOMEN KUB PORTABLE STAT 08/19/2020 4:52 PM VARNISH FILTERER Tracheal mass PATHOLOGY TISSUE Routine 08/19/2020 9:43 AM VARNISH FILTERER 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 EXCISION/RESECTION/R EPAIR TRACHEA 08/19/2020 8:34 AM VARNISH FILTERER 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 Special Needs Supine, STORZ VIDEO TOWER, LARYNGEAL TELESCOPES, LEICA Laryngeal Microscope W/ 400 MM LENS RLN monitoring,DS 2/8 DISSECTION NECK 08/19/2020 8:34 AM VARNISH FILTERER 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 Special Needs Supine, STORZ VIDEO TOWER, LARYNGEAL TELESCOPES, LEICA Laryngeal Microscope W/ 400 MM LENS RLN monitoring,DS 2/8 LARYNGOSCOPY WITH MICROSCOPE 08/19/2020 8:34 AM VARNISH FILTERER 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 Special Needs Supine, STORZ VIDEO TOWER, LARYNGEAL TELESCOPES, LEICA Laryngeal Microscope W/ 400 MM LENS RLN monitoring,DS 2/8 TYPE + SCREEN PANEL MARAL 08/19/2020 6 :18 AM VARNISH FILTERER documented in this encounter Results * (ABNORMAL) RENAL FUNCTION PANEL (09/11/2020 2:13 PM VARNISH FILTERER) BUN 13 7 - 26 mg/dL 09/11/2020 2:56 PM [facility] Creatinine 0.7 0.6 - 1.2 mg/dL 09/11/2020 2:56 PM [facility] Sodium 143 136 - 145 mmol/L 09/11/2020 2:56 PM [facility] Potassium 3.9 3.5 - 4.5 mmol/L 09/11/2020 2:56 PM [facility] Chloride 104 98 - 107 mmol/L 09/11/2020 2:56 PM [facility] CO2 29 22 - 29 mmol/L 09/11/2020 2:56 PM [facility] Glucose 91 70 - 115 mg/dL 09/11/2020 2:56 [address] [facility] Albumin 3.0(L) 3.4 - 5.0 g/dL 09/11/2020 2:56 PM [facility] Calcium 8.5 8.4 - 10.2 mg/dL 09/11/2020 2:56 PM [facility] Phosphorus 5.5(H) 2.3 - 4.7 mg/dL 09/11/2020 2:56 PM [facility] Anion Gap 14 8 - 18 09/11/2020 2:56 PM [facility] BUN/Creatinine Ratio 19 7 - 23 09/11/2020 2:56 PM [facility] Osmolality Calculated 296 270 - 300 mOsm/kg 09/11/2020 2:56 PM [facility] eGFR >60 >60 mL/min/1.7 3 m2 09/11/2020 2:56 PM [facility] Blood BLOOD SPECIMEN / Unknown Lab Venipuncture / Unknown 09/11/2020 2:13 PM VARNISH FILTERER 09/11/2020 2:29 PM VARNISH FILTERER Dionte Comer MD LAB - CHEMISTRY [facility] [address] [place] [phone], [facility] [phone] * (ABNORMAL) CALCIUM IONIZED WHOLE BLOOD (08/29/2020 4:08 AM VARNISH FILTERER) Ionized Calcium Whole Blood 1.05 mmol/L 08/29/2020 4:58 AM [facility] Adjusted Ionized Calcium 1.07(L) 1.19 - 1.34 mmol/L 08/29/2020 4:58 AM [facility] pH Whole Blood 7.44 7.35 - 7.45 08/29/2020 4:58 AM [facility] Blood WHOLE BLOOD SPECIMEN / Unknown Lab Venipuncture / Unknown 08/29/2020 4:08 AM VARNISH FILTERER 08/29/2020 4:57 AM VARNISH FILTERER Dionte Comer MD LAB - CHEMISTRY [facility] [address] [phone], [facility] [phone] * (ABNORMAL) PHOSPHORUS BLOOD (08/29/2020 4:08 AM VARNISH FILTERER) Pathologist [facility] Phosphorus 4.9(H) 2.3 - 4.7 mg/dL 08/29/2020 5:28 AM VARNISH FILTERER [facility] Blood BLOOD SPECIMEN / Unknown Lab Venipuncture / Unknown 08/29/2020 4:08 AM VARNISH FILTERER 08/29/2020 5:00 AM VARNISH FILTERER Dionte Comer MD LAB - CHEMISTRY [facility] Performing Organization Address [facility]/ZIP Co de Phone Number [address] [address], [facility] [phone] * MAGNESIUM BLOOD (08/29/2020 4:08 AM VARNISH FILTERER) [facility] Magnesium 2.3 1.6 - 2.6 mg/dL 08/29/2020 5:28 AM [facility] Blood BLOOD SPECIMEN / Unknown Lab Venipuncture / Unknown 08/29/2020 4:08 AM VARNISH FILTERER 08/29/2020 5:00 AM VARNISH FILTERER Dionte Comer MD LAB - CHEMISTRY [facility] Performing Organization Address [facility]/ZIP Co de Phone Number [address] [address], [facility] [phone] * (ABNORMAL) CBC W/O DIFFERENTIAL (08/29/2020 4:08 AM VARNISH FILTERER) Pathologist [facility] WBC 11.2(H) 3.5 - 10.5 10? 3 /uL 08/29/2020 5:12 AM [facility] RBC 4.27 3.90 - 5.00 10? 6 /uL 08/29/2020 5:12 AM [facility] Hemoglobin 12.3 12.0 - 15.5 g/dL 08/29/2020 5:12 AM [facility] Hematocrit 38.0 35.0 - 45.0 % 08/29/2020 5:12 AM [facility] MCV 89.0 81.0 - 97.0 fL 08/29/2020 5:12 AM [facility] MCH 28.8 28.0 - 34.0 pg 08/29/2020 5:12 AM [facility] MCHC 32.4 32.0 - 36.0 g/dL 08/29/2020 5:12 AM [facility] Platelet Count 380 150 - 400 10? 3 /uL 08/29/2020 5:12 AM [facility] RDW-SD 40.0 36.0 - 50.0 fL 08/29/2020 5:12 AM [facility] RDW-CV 12.4 11.2 - 14.8 % 08/29/2020 5:12 AM [facility] MPV 9.8 9.3 - 12.8 fL 08/29/2020 5:12 AM [facility] nRBC Absolute 0.00 0 10? 3 /uL 08/29/2020 5:12 AM [facility] nRBC Auto 0.0 0 /100 WBC 08/29/2020 5:12 AM [facility] Blood BLOOD SPECIMEN / Unknown Lab Venipuncture / Unknown 08/29/2020 4:08 AM VARNISH FILTERER 08/29/2020 5:00 AM VARNISH FILTERER Dionte Comer MD LAB - HEMATOLOGY ORD [facility] [address] [place] [phone], [facility] [phone] * (ABNORMAL) ALBUMIN BLOOD (08/29/2020 4:08 AM VARNISH FILTERER) Albumin 2.9(L) 3.4 - 5.0 g/dL 08/29/2020 5:28 AM [facility] Blood BLOOD SPECIMEN / Unknown Lab Venipuncture / Unknown 08/29/2020 4:08 AM VARNISH FILTERER 08/29/2020 5:00 AM VARNISH FILTERER Dionte Comer MD LAB - CHEMISTRY [facility] [address] [place] [address], [place] [phone] * (ABNORMAL) BASIC METABOLIC PANEL (CALCIUM TOTAL) (08/29/2020 4:08 AM [facility]) BUN 11 7 - 26 mg/dL 08/29/2020 5:28 AM [facility] Creatinine 0.7 0.6 - 1.2 mg/dL 08/29/2020 5:28 AM [facility] Sodium 142 136 - 145 mmol/L 08/29/2020 5:28 AM [facility] Potassium 3.9 3.5 - 4.5 mmol/L 08/29/2020 5:28 AM [facility] Chloride 103 98 - 107 mmol/L 08/29/2020 5:28 AM [facility] CO2 27 22 - 29 mmol/L 08/29/2020 5:28 AM [facility] Glucose 101 70 - 115 mg/dL 08/29/2020 5:28 AM [facility] Calcium 8.0(L) 8.4 - 10.2 mg/dL 08/29/2020 5:28 AM [facility] Anion Gap 16 8 - 18 08/29/2020 5:28 AM [facility] BUN/Creatinine Ratio 16 7 - 23 08/29/2020 5:28 AM [facility] Osmolality Calculated 294 270 - 300 mOsm/kg 08/29/2020 5:28 AM [facility] eGFR >60 >60 mL/min/1.7 3 m2 08/29/2020 5:28 AM [facility] Blood BLOOD SPECIMEN / Unknown Lab Venipuncture / Unknown 08/29/2020 4:08 AM VARNISH FILTERER 08/29/2020 5:00 AM [facility] Dionte Comer MD LAB - CHEMISTRY [facility] [address] [place] [address], [place] [phone] * PTH INTACT W/O CALCIUM (08/29/2020 4:08 AM [facility]) PTH Intact 10.1 8.0 - 77.0 pg/mL 08/29/2020 5:33 AM [facility] Blood BLOOD SPECIMEN / Unknown Lab Venipuncture / Unknown 08/29/2020 4:08 AM [facility] 08/29/2020 5:00 AM [facility] Dionte Comer MD LAB - CHEMISTRY [facility] [address] [address], [facility] [phone] * (ABNORMAL) CALCIUM IONIZED WHOLE BLOOD (08/28/2020 9:42 PM [facility]) Ionized Calcium Whole Blood 1.09 mmol/L 08/28/2020 9:47 PM [facility] Adjusted Ionized Calcium 1.11(L) 1.19 - 1.34 mmol/L 08/28/2020 9:47 PM [facility] pH Whole Blood 7.43 7.35 - 7.45 08/28/2020 9:47 PM [facility] Blood WHOLE BLOOD SPECIMEN / Unknown Lab Venipuncture / Unknown 08/28/2020 9:42 PM [facility] 08/28/2020 9:45 PM [facility] Dionte Comer MD LAB - CHEMISTRY [facility] [address] [address], [facility] [phone] * (ABNORMAL) CALCIUM IONIZED WHOLE BLOOD (08/28/2020 4:05 PM [facility]) Ionized Calcium Whole Blood 1.02 mmol/L 08/28/2020 4:11 PM [facility] Adjusted Ionized Calcium 1.03(L) 1.19 - 1.34 mmol/L 08/28/2020 4:11 PM [facility] pH Whole Blood 7.42 7.35 - 7.45 08/28/2020 4:11 PM [facility] Blood WHOLE BLOOD SPECIMEN / Unknown Lab Venipuncture / Unknown 08/28/2020 4:05 PM [facility] 08/28/2020 4:09 PM [facility] Dionte Comer MD LAB - CHEMISTRY [facility] [address] [address], [place] [phone] * (ABNORMAL) CALCIUM IONIZED WHOLE BLOOD (08/28/2020 11:54 AM [facility]) Ionized Calcium Whole Blood 1.04 mmol/L 08/28/2020 12:12 PM [facility] Adjusted Ionized Calcium 1.05(L) 1.19 - 1.34 mmol/L 08/28/2020 12:12 PM [facility] [facility] pH Whole Blood 7.41 7.35 - 7.45 08/28/2020 12:12 PM [facility] [employer] Blood WHOLE BLOOD SPECIMEN / Unknown Lab Venipuncture / Unknown 08/28/2020 11:54 AM [employer] 08/28/2020 12:04 PM [employer] Dionte Comer MD LAB - CHEMISTRY ASH WEAVER Performing Organization Address City/[facility]/ZIP Co de Phone Number [address] [address], [place] [phone] * (ABNORMAL) PHOSPHORUS BLOOD (08/28/2020 5:49 AM [employer]) Phosphorus 5.5(H) 2.3 - 4.7 mg/dL 08/28/2020 6:37 AM [employer] [facility] Blood BLOOD SPECIMEN / Unknown Lab Venipuncture / Unknown 08/28/2020 5:49 AM [employer] 08/28/2020 6:04 AM [employer] Dionte Comer MD LAB - CHEMISTRY ASH WEAVER [address] [address], [place] [phone] * MAGNESIUM BLOOD (08/28/2020 5:49 AM [employer]ER) Pathologist [facility] Magnesium 2.2 1.6 - 2.6 mg/dL 08/28/2020 6:37 [address] [facility] Blood BLOOD SPECIMEN / Unknown Lab Venipuncture / Unknown 08/28/2020 5:49 AM [employer] 08/28/2020 6:04 AM [employer] Dionte Comer MD LAB - CHEMISTRY ASH WEAVER Performing Organization Address City/State/[facility] Co de Phone Number [facility] [address] [place] [phone], [facility] [phone] * (ABNORMAL) CBC W/O DIFFERENTIAL (08/28/2020 5:49 AM [facility]) [facility] WBC 11.1(H) 3.5 - 10.5 10? 3 /uL 08/28/2020 6:28 AM [facility] RBC 3.99 3.90 - 5.00 10? 6 /uL 08/28/2020 6:28 AM [facility] Hemoglobin 11.6(L) 12.0 - 15.5 g/dL 08/28/2020 6:28 AM [facility] Hematocrit 35.4 35.0 - 45.0 % 08/28/2020 6:28 AM [facility] MCV 88.7 81.0 - 97.0 fL 08/28/2020 6:28 AM [facility] MCH 29.1 28.0 - 34.0 pg 08/28/2020 6:28 AM [facility] MCHC 32.8 32.0 - 36.0 g/dL 08/28/2020 6:28 AM [facility] Platelet Count 332 150 - 400 10? 3 /uL 08/28/2020 6:28 AM [facility] RDW-SD 39.4 36.0 - 50.0 fL 08/28/2020 6:28 AM [facility] RDW-CV 12.2 11.2 - 14.8 % 08/28/2020 6:28 AM [facility] MPV 9.8 9.3 - 12.8 fL 08/28/2020 6:28 AM [facility] nRBC Absolute 0.00 0 10? 3 /uL 08/28/2020 6:28 AM [facility] nRBC Auto 0.0 0 /100 WBC 08/28/2020 6:28 AM [facility] Blood BLOOD SPECIMEN / Unknown Lab Venipuncture / Unknown 08/28/2020 5:49 AM [employer] 08/28/2020 6:03 AM [employer] Dionte Comer MD LAB - HEMATOLOGY ORD ERABLES Performing Organization Address City/[facility]/ZIP Co de Phone Number [address] [address], [facility] [phone] * (ABNORMAL) ALBUMIN BLOOD (08/28/2020 5:49 AM [employer]) Pathologist [facility] Albumin 2.9(L) 3.4 - 5.0 g/dL 08/28/2020 6:37 AM [facility] Blood BLOOD SPECIMEN / Unknown Lab Venipuncture / Unknown 08/28/2020 5:49 AM [employer] 08/28/2020 6:04 AM [employer] Dionte Comer MD LAB - CHEMISTRY ORDE OWEN Performing Organization Address City/[facility]/ZIP Co de Phone Number [address] [address], [facility] [phone] * (ABNORMAL) BASIC METABOLIC PANEL (CALCIUM TOTAL) (08/28/2020 5:49 AM [employer]) Pathologist [facility] BUN 12 7 - 26 mg/dL 08/28/2020 6:37 AM [facility] Creatinine 0.7 0.6 - 1.2 mg/dL 08/28/2020 6:37 AM [facility] Sodium 142 136 - 145 mmol/L 08/28/2020 6:37 AM [facility] Potassium 3.9 3.5 - 4.5 mmol/L 08/28/2020 6:37 AM [facility] Chloride 103 98 - 107 mmol/L 08/28/2020 6:37 AM [facility] CO2 29 22 - 29 mmol/L 08/28/2020 6:37 AM [facility] Glucose 101 70 - 115 mg/dL 08/28/2020 6:37 AM [facility] Calcium 7.3(L) 8.4 - 10.2 mg/dL 08/28/2020 6:37 AM [facility] Anion Gap 14 8 - 18 08/28/2020 6:37 AM [facility] BUN/Creatinine Ratio 17 7 - 23 08/28/2020 6:37 AM [facility] Osmolality Calculated 294 270 - 300 mOsm/kg 08/28/2020 6:37 AM [facility] eGFR >60 >60 mL/min/1.7 3 m2 08/28/2020 6:37 AM [facility] Blood BLOOD SPECIMEN / Unknown Lab Venipuncture / Unknown 08/28/2020 5:49 AM [employer] 08/28/2020 6:04 AM [employer] Dionte Comer MD LAB - CHEMISTRY ASH WEAVER [address] [address], [facility] [phone] * PTH INTACT W/O CALCIUM (08/28/2020 5:49 AM [employer]) PTH Intact 10.7 8.0 - 77.0 pg/mL 08/28/2020 7:17 AM [facility] Blood BLOOD SPECIMEN / Unknown Lab Venipuncture / Unknown 08/28/2020 5:49 AM [employer] 08/28/2020 6:46 AM [employer] Dionte Comer MD LAB - CHEMISTRY ASH WEAVER [address] [address], [place] [phone] * (ABNORMAL) CALCIUM IONIZED WHOLE BLOOD (08/28/2020 5:49 AM [employer]) Ionized Calcium Whole Blood 1.04 mmol/L 08/28/2020 6:03 AM [facility] Adjusted Ionized Calcium 1.04(L) 1.19 - 1.34 mmol/L 08/28/2020 6:03 AM [facility] pH Whole Blood 7.40 7.35 - 7.45 08/28/2020 6:03 AM [facility] Blood WHOLE BLOOD SPECIMEN / Unknown Lab Venipuncture / Unknown 08/28/2020 5:49 AM [employer] 08/28/2020 6:01 AM [employer] Dionte Comer MD LAB - CHEMISTRY ASH WEAVER [address] [address], [facility] [phone] * (ABNORMAL) CALCIUM IONIZED WHOLE BLOOD (08/27/2020 4:53 PM [employer]) Ionized Calcium Whole Blood 1.05 mmol/L 08/27/2020 4:59 PM [facility] Adjusted Ionized Calcium 1.06(L) 1.19 - 1.34 mmol/L 08/27/2020 4:59 PM [facility] pH Whole Blood 7.41 7.35 - 7.45 08/27/2020 4:59 PM [facility] Blood WHOLE BLOOD SPECIMEN / Unknown Lab Venipuncture / Unknown 08/27/2020 4:53 PM [employer] 08/27/2020 4:57 PM [employer] Dionte Comer MD LAB - CHEMISTRY ASH WEAVER [address] [address], [place] [phone] * (ABNORMAL) GLUCOSE - POINT OF CARE (08/27/2020 4:27 PM [employer]) Glucose WB/POC 157(H) 70 - 115 mg/dL 08/27/2020 4:32 PM [facility] Specimen Type Arterial/C apillary 08/27/2020 4:32 PM [facility] [facility] Blood BLOOD SPECIMEN / Unknown 08/27/2020 4:27 PM [employer] 08/27/2020 4:32 PM [employer] Dionte Comer MD LAB - POINT OF CARE ORDERABLES [address] [address], [place] [phone] * (ABNORMAL) CALCIUM IONIZED WHOLE BLOOD (08/27/2020 11:41 AM [employer]) Ionized Calcium Whole Blood 1.03 mmol/L 08/27/2020 11:53 AM [employer] [facility] Adjusted Ionized Calcium 1.03(L) 1.19 - 1.34 mmol/L 08/27/2020 11:53 AM [employer] [facility] pH Whole Blood 7.40 7.35 - 7.45 08/27/2020 11:53 AM [facility] Blood WHOLE BLOOD SPECIMEN / Unknown Lab Venipuncture / Unknown 08/27/2020 11:41 AM [employer] 08/27/2020 11:48 AM [employer] Dionte Comer MD LAB - CHEMISTRY ASH WEAVER Performing Organization Address City/[facility]/ZIP Co de Phone Number [address] [address], [place] [phone] * (ABNORMAL) PHOSPHORUS BLOOD (08/27/2020 5:48 AM [employer]) Phosphorus 5.4(H) 2.3 - 4.7 mg/dL 08/27/2020 6:22 AM [employer] [facility] Blood BLOOD SPECIMEN / Unknown Lab Venipuncture / Unknown 08/27/2020 5:48 AM [employer] 08/27/2020 5:57 AM [employer] Dionte Comer MD LAB - CHEMISTRY ASH WEAVER [address] [address], [place] [phone] * MAGNESIUM BLOOD (08/27/2020 5:48 AM [employer]) Magnesium 2.1 1.6 - 2.6 mg/dL 08/27/2020 6:22 AM [facility] Blood BLOOD SPECIMEN / Unknown Lab Venipuncture / Unknown 08/27/2020 5:48 AM [employer] 08/27/2020 5:57 AM [employer] Dionte Comer MD LAB - CHEMISTRY ASH Dubose Organization Address City/State/ZIP Co de Phone Number [facility] [address] [place] [phone] [phone] * (ABNORMAL) CBC W/O DIFFERENTIAL (08/27/2020 5:48 AM [employer]) WBC 9.5 3.5 - 10.5 10? 3 /uL 08/27/2020 6:18 AM [facility] RBC 3.84(L) 3.90 - 5.00 10? 6 /uL 08/27/2020 6:18 AM [facility] Hemoglobin 11.3(L) 12.0 - 15.5 g/dL 08/27/2020 6:18 AM [facility] Hematocrit 34.4(L) 35.0 - 45.0 % 08/27/2020 6:18 AM [facility] MCV 89.6 81.0 - 97.0 fL 08/27/2020 6:18 AM [facility] MCH 29.4 28.0 - 34.0 pg 08/27/2020 6:18 AM [facility] MCHC 32.8 32.0 - 36.0 g/dL 08/27/2020 6:18 AM [facility] Platelet Count 327 150 - 400 10? 3 /uL 08/27/2020 6:18 AM [facility] RDW-SD 39.7 36.0 - 50.0 fL 08/27/2020 6:18 AM [facility] RDW-CV 12.2 11.2 - 14.8 % 08/27/2020 6:18 AM [facility] MPV 9.6 9.3 - 12.8 fL 08/27/2020 6:18 AM [facility] nRBC Absolute 0.00 0 10? 3 /uL 08/27/2020 6:18 AM [facility] nRBC Auto 0.0 0 /100 WBC 08/27/2020 6:18 AM [facility] Blood BLOOD SPECIMEN / Unknown Lab Venipuncture / Unknown 08/27/2020 5:48 AM [employer] 08/27/2020 5:56 AM [employer] Dionte Comer MD LAB - HEMATOLOGY ORD ERABLES [address] [address], [facility] [phone] * (ABNORMAL) ALBUMIN BLOOD (08/27/2020 5:48 AM [employer]) Albumin 2.8(L) 3.4 - 5.0 g/dL 08/27/2020 6:22 AM [facility] Blood BLOOD SPECIMEN / Unknown Lab Venipuncture / Unknown 08/27/2020 5:48 AM [employer] 08/27/2020 5:57 AM [employer] Dionte Comer MD LAB - CHEMISTRY ORDE RABHORTENCIA [address] [address], [facility] [phone] * (ABNORMAL) BASIC METABOLIC PANEL (CALCIUM TOTAL) (08/27/2020 5:48 AM [employer]) BUN 9 7 - 26 mg/dL 08/27/2020 6:22 AM [facility] Creatinine 0.6 0.6 - 1.2 mg/dL 08/27/2020 6:22 AM [facility] Sodium 143 136 - 145 mmol/L 08/27/2020 6:22 AM [facility] Potassium 3.7 3.5 - 4.5 mmol/L 08/27/2020 6:22 AM [facility] Chloride 99 98 - 107 mmol/L 08/27/2020 6:22 AM [facility] CO2 32(H) 22 - 29 mmol/L 08/27/2020 6:22 AM [facility] Glucose 109 70 - 115 mg/dL 08/27/2020 6:22 AM [facility] Calcium 7.4(L) 8.4 - 10.2 mg/dL 08/27/2020 6:22 AM [facility] Anion Gap 16 8 - 18 08/27/2020 6:22 AM [facility] BUN/Creatinine Ratio 15 7 - 23 08/27/2020 6:22 AM [facility] Osmolality Calculated 295 270 - 300 mOsm/kg 08/27/2020 6:22 AM [facility] eGFR >60 >60 mL/min/1.7 3 m2 08/27/2020 6:22 AM [facility] Blood BLOOD SPECIMEN / Unknown Lab Venipuncture / Unknown 08/27/2020 5:48 AM [employer] 08/27/2020 5:57 AM [employer] Dionte Comer MD LAB - CHEMISTRY ASH WEAVER [address] [address], [place] [phone] * PTH INTACT W/O CALCIUM (08/27/2020 5:48 AM [employer]) PTH Intact 8.2 8.0 - 77.0 pg/mL 08/27/2020 6:27 AM [facility] Blood BLOOD SPECIMEN / Unknown Lab Venipuncture / Unknown 08/27/2020 5:48 AM [employer] 08/27/2020 5:56 AM [employer] Dionte Comer MD LAB - CHEMISTRY ASH WEAVER [address] [address], [place] [phone] * (ABNORMAL) CALCIUM IONIZED WHOLE BLOOD (08/27/2020 5:48 AM [employer]) Ionized Calcium Whole Blood 1.01 mmol/L 08/27/2020 6:12 AM [facility] Adjusted Ionized Calcium 1.02(L) 1.19 - 1.34 mmol/L 08/27/2020 6:12 AM [facility] pH Whole Blood 7.41 7.35 - 7.45 08/27/2020 6:12 AM [facility] Blood WHOLE BLOOD SPECIMEN / Unknown Lab Venipuncture / Unknown 08/27/2020 5:48 AM [employer] 08/27/2020 5:54 AM [employer] Dionte Comer MD LAB - CHEMISTRY ASH WEAVER [address] [address], [facility] [phone] * (ABNORMAL) CALCIUM IONIZED WHOLE BLOOD (08/26/2020 4:20 PM [employer]) Ionized Calcium Whole Blood 1.05 mmol/L 08/26/2020 4:26 PM [facility] Adjusted Ionized Calcium 1.03(L) 1.19 - 1.34 mmol/L 08/26/2020 4:26 PM [facility] pH Whole Blood 7.36 7.35 - 7.45 08/26/2020 4:26 PM [facility] Blood WHOLE BLOOD SPECIMEN / Unknown Lab Venipuncture / Unknown 08/26/2020 4:20 PM [employer] 08/26/2020 4:23 PM [employer] Dionte Comer MD LAB - CHEMISTRY ASH WEAVER [address] [address], [facility] [phone] * (ABNORMAL) CALCIUM IONIZED WHOLE BLOOD (08/26/2020 11:35 AM [employer]) Ionized Calcium Whole Blood 1.01 mmol/L 08/26/2020 11:41 AM [facility] Adjusted Ionized Calcium 0.99(L) 1.19 - 1.34 mmol/L 08/26/2020 11:41 AM [facility] pH Whole Blood 7.36 7.35 - 7.45 08/26/2020 11:41 AM [facility] Blood WHOLE BLOOD SPECIMEN / Unknown Lab Venipuncture / Unknown 08/26/2020 11:35 AM [employer] 08/26/2020 11:39 AM [employer] Dionte Comer MD LAB - CHEMISTRY ASH WEAVER [address] [address], [place] [phone] * (ABNORMAL) CALCIUM IONIZED WHOLE BLOOD (08/26/2020 6:43 AM [employer]) [facility] Ionized Calcium Whole Blood 1.00 mmol/L 08/26/2020 6:50 AM [employer] [facility] Adjusted Ionized Calcium 1.01(L) 1.19 - 1.34 mmol/L 08/26/2020 6:50 AM [employer] [facility] pH Whole Blood 7.42 7.35 - 7.45 08/26/2020 6:50 AM [employer] [facility] Blood WHOLE BLOOD SPECIMEN / Unknown Lab Venipuncture / Unknown 08/26/2020 6:43 AM [employer] 08/26/2020 6:48 AM [employer] Dionte Comer MD LAB - CHEMISTRY ASH WEAVER [address] [address], [place] [phone] * (ABNORMAL) PHOSPHORUS BLOOD (08/26/2020 12:41 AM [employer]) [facility] Phosphorus 4.8(H) 2.3 - 4.7 mg/dL 08/26/2020 1:15 AM [employer] [facility] Blood BLOOD SPECIMEN / Unknown Lab Venipuncture / Unknown 08/26/2020 12:41 AM [employer] 08/26/2020 12:47 AM [employer] Dionte Comer MD LAB - CHEMISTRY ASH WEAVER [address] [address], [place] [phone] * MAGNESIUM BLOOD (08/26/2020 12:41 AM [employer]ER) Magnesium 1.8 1.6 - 2.6 mg/dL 08/26/2020 1:15 AM [facility] Blood BLOOD SPECIMEN / Unknown Lab Venipuncture / Unknown 08/26/2020 12:41 AM [employer] 08/26/2020 12:47 AM [employer] Dionte Comer MD LAB - CHEMISTRY ASH WEAVER Performing Organization Address City/[facility] Co de Phone Number [facility] [address] [place] [phone] [phone] * CBC W/O DIFFERENTIAL (08/26/2020 12:41 AM [employer] FIL[employer]ER) WBC 10.2 3.5 - 10.5 10? 3 /uL 08/26/2020 12:54 AM [facility] RBC 4.31 3.90 - 5.00 10? 6 /uL 08/26/2020 12:54 AM [facility] Hemoglobin 12.6 12.0 - 15.5 g/dL 08/26/2020 12:54 AM [facility] Hematocrit 38.4 35.0 - 45.0 % 08/26/2020 12:54 AM [facility] MCV 89.1 81.0 - 97.0 fL 08/26/2020 12:54 AM [facility] MCH 29.2 28.0 - 34.0 pg 08/26/2020 12:54 AM [facility] MCHC 32.8 32.0 - 36.0 g/dL 08/26/2020 12:54 AM [facility] Platelet Count 328 150 - 400 10? 3 /uL 08/26/2020 12:54 AM [facility] RDW-SD 39.5 36.0 - 50.0 fL 08/26/2020 12:54 AM [facility] RDW-CV 12.0 11.2 - 14.8 % 08/26/2020 12:54 AM [facility] MPV 9.4 9.3 - 12.8 fL 08/26/2020 12:54 AM [facility] nRBC Absolute 0.00 0 10? 3 /uL 08/26/2020 12:54 AM [facility] nRBC Auto 0.0 0 /100 WBC 08/26/2020 12:54 AM [facility] Blood BLOOD SPECIMEN / Unknown Lab Venipuncture / Unknown 08/26/2020 12:41 AM [employer] 08/26/2020 12:47 AM [employer] Dionte Comer MD LAB - HEMATOLOGY ORD ERABLES [address] [address], [facility] [phone] * (ABNORMAL) ALBUMIN BLOOD (08/26/2020 12:41 AM [employer] FILTERER) Pathologist [facility] Albumin 2.8(L) 3.4 - 5.0 g/dL 08/26/2020 1:15 AM [facility] Blood BLOOD SPECIMEN / Unknown Lab Venipuncture / Unknown 08/26/2020 12:41 AM [employer] 08/26/2020 12:47 AM [employer] Dionte Comer MD LAB - CHEMISTRY ORDE RABHORTENCIA [address] [address], [facility] [phone] * (ABNORMAL) BASIC METABOLIC PANEL (CALCIUM TOTAL) (08/26/2020 12:41 AM [employer]) BUN 9 7 - 26 mg/dL 08/26/2020 1:15 AM [facility] Creatinine 0.6 0.6 - 1.2 mg/dL 08/26/2020 1:15 AM [facility] Sodium 144 136 - 145 mmol/L 08/26/2020 1:15 AM [facility] Potassium 3.6 3.5 - 4.5 mmol/L 08/26/2020 1:15 AM [facility] Chloride 99 98 - 107 mmol/L 08/26/2020 1:15 AM [facility] CO2 33(H) 22 - 29 mmol/L 08/26/2020 1:15 AM [facility] [employer] Glucose 127(H) 70 - 115 mg/dL 08/26/2020 1:15 AM [facility] Calcium 7.4(L) 8.4 - 10.2 mg/dL 08/26/2020 1:15 AM [facility] Anion Gap 16 8 - 18 08/26/2020 1:15 AM [facility] BUN/Creatinine Ratio 15 7 - 23 08/26/2020 1:15 AM [facility] Osmolality Calculated 298 270 - 300 mOsm/kg 08/26/2020 1:15 AM [facility] eGFR >60 >60 mL/min/1.7 3 m2 08/26/2020 1:15 AM [facility] Blood BLOOD SPECIMEN / Unknown Lab Venipuncture / Unknown 08/26/2020 12:41 AM [employer] 08/26/2020 12:47 AM [employer] Dionte Comer MD LAB - CHEMISTRY ASH WEAVER Performing Organization Address City/[facility]/ZIP Co de Phone Number [address] [address], [facility] [phone] * (ABNORMAL) PTH INTACT W/O CALCIUM (08/26/2020 12:41 AM [employer]) PTH Intact 4.4(L) 8.0 - 77.0 pg/mL 08/26/2020 1:31 AM [facility] Blood BLOOD SPECIMEN / Unknown Lab Venipuncture / Unknown 08/26/2020 12:41 AM [employer] 08/26/2020 12:47 AM [employer] Dionte Comer MD LAB - CHEMISTRY ASH WEAVER [address] [address], [facility] [phone] * (ABNORMAL) CALCIUM IONIZED WHOLE BLOOD (08/26/2020 12:41 AM [facility] [employer]) Ionized Calcium Whole Blood 1.03 mmol/L 08/26/2020 1:08 AM [facility] Adjusted Ionized Calcium 1.01(L) 1.19 - 1.34 mmol/L 08/26/2020 1:08 AM [facility] pH Whole Blood 7.36 7.35 - 7.45 08/26/2020 1:08 AM [facility] Blood WHOLE BLOOD SPECIMEN / Unknown Lab Venipuncture / Unknown 08/26/2020 12:41 AM [employer] 08/26/2020 12:47 AM [employer] Dionte Comer MD LAB - CHEMISTRY ASH WEAVER Performing Organization Address City/[facility]/ZIP Co de Phone Number [facility] [address] [place] [phone], [facility] [phone] * (ABNORMAL) CALCIUM IONIZED WHOLE BLOOD (08/25/2020 4:06 PM [facility] [employer]) Ionized Calcium Whole Blood 1.01 mmol/L 08/25/2020 4:13 PM [facility] Adjusted Ionized Calcium 1.03(L) 1.19 - 1.34 mmol/L 08/25/2020 4:13 PM [facility] pH Whole Blood 7.43 7.35 - 7.45 08/25/2020 4:13 PM [facility] Blood WHOLE BLOOD SPECIMEN / Unknown Lab Venipuncture / Unknown 08/25/2020 4:06 PM [employer] 08/25/2020 4:10 PM [employer] Dionte Comer MD LAB - CHEMISTRY ASH WEAVER Performing Organization Address City/[facility]/ZIP Co de Phone Number [address] [address], [facility] [phone] * CALCIUM URINE RANDOM (08/25/2020 1:12 PM [employer]) Calcium Random Urine 5.5 Not Established mg/dL 08/25/2020 1:41 PM [employer] Urine URINE SPECIMEN OBTAINED BY CLEAN CATCH PROCEDURE / Unknown Collection / Unknown 08/25/2020 1:12 PM [employer] 08/25/2020 1:32 PM [employer] Dionte Comer MD LAB - URINE CHEMISTR Y ORDERABLES Performing Organization Address [facility]/ZIP Co de Phone Number [address] [address], [place] [phone] * (ABNORMAL) CALCIUM IONIZED WHOLE BLOOD (08/25/2020 10:53 AM [facility]) Ionized Calcium Whole Blood 1.05 mmol/L 08/25/2020 11:09 [address] [facility] Adjusted Ionized Calcium 1.01(L) 1.19 - 1.34 mmol/L 08/25/2020 11:09 AM [facility] pH Whole Blood 7.33(L) 7.35 - 7.45 08/25/2020 11:09 AM [facility] Blood WHOLE BLOOD SPECIMEN / Unknown Lab Venipuncture / Unknown 08/25/2020 10:53 AM [employer] 08/25/2020 11:07 AM [employer] Dionte Comer MD LAB - CHEMISTRY ASH WEAVER Performing Organization Address [facility]/ZIP Co de Phone Number [address] [address], [place] [phone] * (ABNORMAL) CALCIUM IONIZED WHOLE BLOOD (08/25/2020 9:04 AM [facility] [employer]) Ionized Calcium Whole Blood 1.00 mmol/L 08/25/2020 9:26 AM [facility] Adjusted Ionized Calcium 1.00(L) 1.19 - 1.34 mmol/L 08/25/2020 9:26 AM [facility] pH Whole Blood 7.40 7.35 - 7.45 08/25/2020 9:26 AM [facility] Blood WHOLE BLOOD SPECIMEN / Unknown Lab Venipuncture / Unknown 08/25/2020 9:04 AM [facility] 08/25/2020 9:24 AM [facility] Dionte Comer MD LAB - CHEMISTRY [facility] Performing Organization Address City/[facility]/ZIP Co de Phone Number [address] [address], [place] [phone] * (ABNORMAL) PHOSPHORUS BLOOD (08/25/2020 4:16 AM [facility]) Phosphorus 6.0(H) 2.3 - 4.7 mg/dL 08/25/2020 5:09 AM [facility] Blood BLOOD SPECIMEN / Unknown Venipuncture / Unknown 08/25/2020 4:16 AM [facility] 08/25/2020 4:42 AM [facility] Dionte Comer MD LAB - CHEMISTRY [facility] [address] [place] [id number], [facility] [phone] * MAGNESIUM BLOOD (08/25/2020 4:16 AM [facility]) Pathologist [facility] Magnesium 1.9 1.6 - 2.6 mg/dL 08/25/2020 5:09 AM [facility] Blood BLOOD SPECIMEN / Unknown Venipuncture / Unknown 08/25/2020 4:16 AM [facility] 08/25/2020 4:42 AM [facility] Dionte Comer MD LAB - CHEMISTRY [facility] [address] [address], [facility] [phone] * CBC W/O DIFFERENTIAL (08/25/2020 4:16 AM [facility]) Pathologist [facility] WBC 9.6 3.5 - 10.5 10? 3 /uL 08/25/2020 4:52 AM [facility] RBC 4.53 3.90 - 5.00 10? 6 /uL 08/25/2020 4:52 AM [facility] Hemoglobin 13.1 12.0 - 15.5 g/dL 08/25/2020 4:52 AM [facility] Hematocrit 40.6 35.0 - 45.0 % 08/25/2020 4:52 AM [facility] MCV 89.6 81.0 - 97.0 fL 08/25/2020 4:52 AM [facility] MCH 28.9 28.0 - 34.0 pg 08/25/2020 4:52 AM [facility] MCHC 32.3 32.0 - 36.0 g/dL 08/25/2020 4:52 AM [facility] Platelet Count 327 150 - 400 10? 3 /uL 08/25/2020 4:52 AM [facility] RDW-SD 40.0 36.0 - 50.0 fL 08/25/2020 4:52 AM [facility] RDW-CV 12.2 11.2 - 14.8 % 08/25/2020 4:52 AM [facility] MPV 10.1 9.3 - 12.8 fL 08/25/2020 4:52 AM [facility] nRBC Absolute 0.00 0 10? 3 /uL 08/25/2020 4:52 AM [facility] nRBC Auto 0.0 0 /100 WBC 08/25/2020 4:52 AM [facility] Blood BLOOD SPECIMEN / Unknown Venipuncture / Unknown 08/25/2020 4:16 AM [facility] 08/25/2020 4:42 AM [facility] Dinote Comer MD LAB - HEMATOLOGY ORD ERABLES [address] [address], [facility] [phone] * (ABNORMAL) ALBUMIN BLOOD (08/25/2020 4:16 AM [facility]) Albumin 2.8(L) 3.4 - 5.0 g/dL 08/25/2020 5:09 AM [facility] Blood BLOOD SPECIMEN / Unknown Venipuncture / Unknown 08/25/2020 4:16 AM [facility] 08/25/2020 4:42 AM [facility] Dionte Comer MD LAB - CHEMISTRY ORDE [facility] [address] [address], [place] [phone] * (ABNORMAL) BASIC METABOLIC PANEL (CALCIUM TOTAL) (08/25/2020 4:16 AM [facility]) BUN 13 7 - 26 mg/dL 08/25/2020 5:09 AM [facility] Creatinine 0.7 0.6 - 1.2 mg/dL 08/25/2020 5:09 AM [facility] Sodium 141 136 - 145 mmol/L 08/25/2020 5:09 AM [facility] Potassium 3.6 3.5 - 4.5 mmol/L 08/25/2020 5:09 AM [facility] Chloride 97(L) 98 - 107 mmol/L 08/25/2020 5:09 AM [facility] CO2 32(H) 22 - 29 mmol/L 08/25/2020 5:09 AM [facility] Glucose 116(H) 70 - 115 mg/dL 08/25/2020 5:09 AM [facility] Calcium 7.9(L) 8.4 - 10.2 mg/dL 08/25/2020 5:09 AM [facility] Anion Gap 16 8 - 18 08/25/2020 5:09 AM [facility] BUN/Creatinine Ratio 19 7 - 23 08/25/2020 5:09 AM [facility] Osmolality Calculated 293 270 - 300 mOsm/kg 08/25/2020 5:09 AM [facility] eGFR >60 >60 mL/min/1.7 3 m2 08/25/2020 5:09 AM [facility] Blood BLOOD SPECIMEN / Unknown Venipuncture / Unknown 08/25/2020 4:16 AM [facility] 08/25/2020 4:42 AM [facility] Dionte Comer MD LAB - CHEMISTRY [facility] Organization Address City/State/ZIP Co de Phone Number [address] [address], [facility] [phone] * (ABNORMAL) PTH INTACT W/O CALCIUM (08/25/2020 4:16 AM [facility]) PTH Intact <4.0(L) 8.0 - 77.0 pg/mL 08/25/2020 5:11 AM [facility] Blood BLOOD SPECIMEN / Unknown Venipuncture / Unknown 08/25/2020 4:16 AM [facility] [employer] 08/25/2020 4:42 AM [facility] [employer]ER Dionte Comer MD LAB - CHEMISTRY ASH WEAVER Performing Organization Address City/[facility]/ZIP Co de Phone Number [facility] [address] [place] [phone], [facility] [phone] * (ABNORMAL) CALCIUM IONIZED WHOLE BLOOD (08/25/2020 4:16 AM [facility] [employer]) Ionized Calcium Whole Blood 1.04 mmol/L 08/25/2020 4:43 AM [facility] [employer] Adjusted Ionized Calcium 1.01(L) 1.19 - 1.34 mmol/L 08/25/2020 4:[address] [facility] pH Whole Blood 7.35 7.35 - 7.45 08/25/2020 4:43 AM [facility] Blood WHOLE BLOOD SPECIMEN / Unknown Venipuncture / Unknown 08/25/2020 4:16 AM [employer] 08/25/2020 4:39 AM [employer]ER Dionte Comer MD LAB - CHEMISTRY ASH WE[employer]ER [address] [address], [facility] [phone] * (ABNORMAL) CALCIUM IONIZED WHOLE BLOOD (08/24/2020 4:50 PM [facility] [employer]) Ionized Calcium Whole Blood 1.03 mmol/L 08/24/2020 5:01 PM [employer] [employer] Adjusted Ionized Calcium 1.05(L) 1.19 - 1.34 mmol/L 08/24/2020 5:01 PM [facility] pH Whole Blood 7.43 7.35 - 7.45 08/24/2020 5:01 PM [facility] Blood WHOLE BLOOD SPECIMEN / Unknown Venipuncture / Unknown 08/24/2020 4:50 PM [employer] 08/24/2020 4:59 PM [employer] Dionte Comer MD LAB - CHEMISTRY ASH WE[employer]ER [address] [address], [place] [phone] * (ABNORMAL) CALCIUM IONIZED WHOLE BLOOD (08/24/2020 10:42 AM [facility]) Ionized Calcium Whole Blood 1.04 mmol/L 08/24/2020 10:49 AM [employer] [employer] Adjusted Ionized Calcium 1.01(L) 1.19 - 1.34 mmol/L 08/24/2020 10:49 AM [facility] pH Whole Blood 7.35 7.35 - 7.45 08/24/2020 10:49 AM [facility] Blood WHOLE BLOOD SPECIMEN / Unknown Venipuncture / Unknown 08/24/2020 10:42 AM [employer] 08/24/2020 10:47 AM [employer] Dionte Comer MD LAB - CHEMISTRY ASH WE[employer]ER [address] [address], [place] [phone] * (ABNORMAL) CALCIUM IONIZED WHOLE BLOOD (08/24/2020 4:17 AM [employer]) Ionized Calcium Whole Blood 1.10 mmol/L 08/24/2020 4:35 AM [employer] Adjusted Ionized Calcium 1.08(L) 1.19 - 1.34 mmol/L 08/24/2020 4:35 AM [facility] pH Whole Blood 7.36 7.35 - 7.45 08/24/2020 4:35 AM [facility] Blood WHOLE BLOOD SPECIMEN / Unknown Venipuncture / Unknown 08/24/2020 4:17 AM [employer] 08/24/2020 4:33 AM [employer] Dionte Comer MD LAB - CHEMISTRY ASH WE[employer]ER [address] [address], [place] [phone] * CALCIUM URINE RANDOM (08/24/2020 2:48 AM [employer]) Calcium Random Urine 13.6 Not Established mg/dL 08/24/2020 3:17 AM [employer] [employer] Urine URINE SPECIMEN OBTAINED BY CLEAN CATCH PROCEDURE / Unknown Collection / Unknown 08/24/2020 2:48 AM [employer] 08/24/2020 3:09 AM [employer] Dionte Comer MD LAB - URINE CHEMISTR Y ORDERABLES [address] [address], [place] [phone] * (ABNORMAL) ALBUMIN BLOOD (08/24/2020 12:05 AM [facility]) Albumin 2.9(L) 3.4 - 5.0 g/dL 08/24/2020 12:55 AM [employer] [employer] Blood BLOOD SPECIMEN / Unknown Venipuncture / Unknown 08/24/2020 12:05 AM [employer] 08/24/2020 12:29 AM [employer] Dionte Comer MD LAB - CHEMISTRY ASH WEAVER Performing Organization Address [facility]/ZIP Co de Phone Number [address] [address], [place] [phone] * (ABNORMAL) PTH INTACT W/O CALCIUM (08/24/2020 12:05 AM [employer] [employer]) PTH Intact <4.0(L) 8.0 - 77.0 pg/mL 08/24/2020 1:04 AM [employer] [employer] Blood BLOOD SPECIMEN / Unknown Venipuncture / Unknown 08/24/2020 12:05 AM [employer] 08/24/2020 12:29 AM [employer] Dionte Comer MD LAB - CHEMISTRY ASH WE[employer]ER Performing Organization Address City/[facility]/ZIP Co de Phone Number [address] [address], [place] [phone] * (ABNORMAL) PHOSPHORUS BLOOD (08/24/2020 12:05 AM [employer]) Phosphorus 6.0(H) 2.3 - 4.7 mg/dL 08/24/2020 12:55 AM [facility] Blood BLOOD SPECIMEN / Unknown Venipuncture / Unknown 08/24/2020 12:05 AM [employer] 08/24/2020 12:29 AM [employer] Dionte Comer MD LAB - CHEMISTRY ASH WEAVER [facility] [address] [place] [address], [facility] [phone] * (ABNORMAL) CBC W/O DIFFERENTIAL (08/24/2020 12:05 AM [facility]) WBC 11.6(H) 3.5 - 10.5 10? 3 /uL 08/24/2020 12:58 AM [facility] RBC 4.28 3.90 - 5.00 10? 6 /uL 08/24/2020 12:58 AM [facility] Hemoglobin 12.5 12.0 - 15.5 g/dL 08/24/2020 12:58 AM [facility] Hematocrit 37.8 35.0 - 45.0 % 08/24/2020 12:58 AM [facility] MCV 88.3 81.0 - 97.0 fL 08/24/2020 12:58 AM [facility] MCH 29.2 28.0 - 34.0 pg 08/24/2020 12:58 AM [facility] MCHC 33.1 32.0 - 36.0 g/dL 08/24/2020 12:58 AM [facility] Platelet Count 282 150 - 400 10? 3 /uL 08/24/2020 12:58 AM [facility] RDW-SD 39.6 36.0 - 50.0 fL 08/24/2020 12:58 AM [facility] RDW-CV 12.3 11.2 - 14.8 % 08/24/2020 12:58 AM [facility] MPV 10.1 9.3 - 12.8 fL 08/24/2020 12:58 AM [facility] nRBC Absolute 0.00 0 10? 3 /uL 08/24/2020 12:58 AM [facility] nRBC Auto 0.0 0 /100 WBC 08/24/2020 12:58 AM [facility] Blood BLOOD SPECIMEN / Unknown Venipuncture / Unknown 08/24/2020 12:05 AM [employer] 08/24/2020 12:25 AM [facility] Dionte Comer MD LAB - HEMATOLOGY ORD ERABLES [facility] [address] [place] [address], [facility] [phone] * (ABNORMAL) BASIC METABOLIC PANEL (CALCIUM TOTAL) (08/24/2020 12:05 AM [facility]) BUN 8 7 - 26 mg/dL 08/24/2020 12:55 AM [facility] Creatinine 0.5(L) 0.6 - 1.2 mg/dL 08/24/2020 12:55 AM [facility] Sodium 142 136 - 145 mmol/L 08/24/2020 12:55 AM [facility] Potassium 3.3(L) 3.5 - 4.5 mmol/L 08/24/2020 12:55 AM [facility] Chloride 96(L) 98 - 107 mmol/L 08/24/2020 12:55 AM [facility] CO2 34(H) 22 - 29 mmol/L 08/24/2020 12:55 AM [facility] Glucose 112 70 - 115 mg/dL 08/24/2020 12:55 AM [facility] Calcium 8.3(L) 8.4 - 10.2 mg/dL 08/24/2020 12:55 AM [facility] Anion Gap 15 8 - 18 08/24/2020 12:55 AM [facility] BUN/Creatinine Ratio 16 7 - 23 08/24/2020 12:55 AM [facility] Osmolality Calculated 293 270 - 300 mOsm/kg 08/24/2020 12:55 AM [facility] eGFR >60 >60 mL/min/1.7 3 m2 08/24/2020 12:55 AM [facility] Blood BLOOD SPECIMEN / Unknown Venipuncture / Unknown 08/24/2020 12:05 AM [employer] 08/24/2020 12:29 AM [employer] Dionte Comer MD LAB - CHEMISTRY ASH WEAVER [address] [address], [facility] [phone] * (ABNORMAL) CALCIUM IONIZED WHOLE BLOOD (08/24/2020 12:05 AM [facility]) Ionized Calcium Whole Blood 1.11 mmol/L 08/24/2020 12:28 AM [facility] Adjusted Ionized Calcium 1.09(L) 1.19 - 1.34 mmol/L 08/24/2020 12:28 AM [facility] pH Whole Blood 7.36 7.35 - 7.45 08/24/2020 12:28 AM [facility] Blood WHOLE BLOOD SPECIMEN / Unknown Venipuncture / Unknown 08/24/2020 12:05 AM [employer] 08/24/2020 12:25 AM [employer] Dionte Comer MD LAB - CHEMISTRY ASH WEAVER [address] [address], [facility] [phone] * (ABNORMAL) CALCIUM IONIZED WHOLE BLOOD (08/23/2020 5:31 PM [employer]) Ionized Calcium Whole Blood 1.95 mmol/L 08/23/2020 5:40 PM [facility] Adjusted Ionized Calcium 1.94(H) 1.19 - 1.34 mmol/L 08/23/2020 5:40 PM [facility] pH Whole Blood 7.39 7.35 - 7.45 08/23/2020 5:40 PM [facility] Blood WHOLE BLOOD SPECIMEN / Unknown Venipuncture / Unknown 08/23/2020 5:31 PM [employer] 08/23/2020 5:38 PM [employer] Dionte Comer MD LAB - CHEMISTRY ASH WE[employer]ER [address] [address], [place] [phone] * MAGNESIUM BLOOD (08/23/2020 10:49 AM [employer]) Magnesium 1.8 1.6 - 2.6 mg/dL 08/23/2020 11:31 AM [facility] [employer] Blood BLOOD SPECIMEN / Unknown Venipuncture / Unknown 08/23/2020 10:49 AM [employer]ER 08/23/2020 11:00 AM [employer]ER Dionte Comer MD LAB - CHEMISTRY ASH WEAVER Performing Organization Address [facility] Co de Phone Number [address] [address], [place] [phone] * (ABNORMAL) CALCIUM IONIZED WHOLE BLOOD (08/23/2020 10:49 AM [employer]) Ionized Calcium Whole Blood 0.97 mmol/L 08/23/2020 10:59 AM [employer]ER [facility] Adjusted Ionized Calcium 0.95(L) 1.19 - 1.34 mmol/L 08/23/2020 10:59 AM [facility] pH Whole Blood 7.36 7.35 - 7.45 08/23/2020 10:59 AM [employer] [facility] Blood WHOLE BLOOD SPECIMEN / Unknown Venipuncture / Unknown 08/23/2020 10:49 AM [employer] 08/23/2020 10:57 AM [employer]ER Dionte Comer MD LAB - CHEMISTRY ASH WE[employer]ER Performing Organization Address City/[facility]/ZIP Co de Phone Number [address] [address], [place] [phone] * CALCIUM URINE RANDOM (08/23/2020 5:04 AM [employer]ER) Calcium Random Urine 8.3 Not Established mg/dL 08/23/2020 5:29 AM [facility] Urine URINE SPECIMEN OBTAINED BY CLEAN CATCH PROCEDURE / Unknown Collection / Unknown 08/23/2020 5:04 AM [employer]ER 08/23/2020 5:20 AM [facility] Dionte Comer MD LAB - URINE CHEMISTR Y ORDERABLES [facility] [address] [place] [address], [facility] [phone] * (ABNORMAL) BASIC METABOLIC PANEL (CALCIUM TOTAL) (08/23/2020 4:28 AM [facility]) BUN 7 7 - 26 mg/dL 08/23/2020 10:07 AM [facility] Creatinine 0.5(L) 0.6 - 1.2 mg/dL 08/23/2020 10:07 AM [facility] Sodium 142 136 - 145 mmol/L 08/23/2020 10:07 AM [facility] Potassium 3.5 3.5 - 4.5 mmol/L 08/23/2020 10:07 AM [facility] Chloride 98 98 - 107 mmol/L 08/23/2020 10:07 AM [facility] CO2 32(H) 22 - 29 mmol/L 08/23/2020 10:07 AM [facility] Glucose 99 70 - 115 mg/dL 08/23/2020 10:07 AM [facility] Calcium 7.3(L) 8.4 - 10.2 mg/dL 08/23/2020 10:07 AM [facility] Anion Gap 16 8 - 18 08/23/2020 10:07 AM [facility] BUN/Creatinine Ratio 14 7 - 23 08/23/2020 10:07 AM [facility] Osmolality Calculated 292 270 - 300 mOsm/kg 08/23/2020 10:07 AM [facility] eGFR >60 >60 mL/min/1.7 3 m2 08/23/2020 10:07 AM [facility] Blood BLOOD SPECIMEN / Unknown Venipuncture / Unknown 08/23/2020 4:28 AM [employer] 08/23/2020 4:35 AM [employer] Dionte Comer MD LAB - CHEMISTRY ASH WEAVER [address] [address], [facility] [phone] * (ABNORMAL) CALCIUM IONIZED WHOLE BLOOD (08/23/2020 4:28 AM V[employer] FILTERER) Pathologist [facility] Ionized Calcium Whole Blood 1.01 mmol/L 08/23/2020 4:36 AM [facility] Adjusted Ionized Calcium 0.98(L) 1.19 - 1.34 mmol/L 08/23/2020 4:36 AM [facility] pH Whole Blood 7.35 7.35 - 7.45 08/23/2020 4:36 AM [facility] Blood WHOLE BLOOD SPECIMEN / Unknown Venipuncture / Unknown 08/23/2020 4:28 AM [employer] 08/23/2020 4:32 AM [employer] Dionte Comer MD LAB - CHEMISTRY ASH WEAVER [address] [address], [facility] [phone] * (ABNORMAL) ALBUMIN BLOOD (08/23/2020 4:28 AM [employer]TERER) Pathologist [facility] Albumin 2.8(L) 3.4 - 5.0 g/dL 08/23/2020 4:54 AM [facility] Blood BLOOD SPECIMEN / Unknown Venipuncture / Unknown 08/23/2020 4:28 AM [employer] 08/23/2020 4:35 AM [employer] Dionte Comer MD LAB - CHEMISTRY ASH WE[employer]ER [address] [address], [facility] [phone] * (ABNORMAL) PTH INTACT W/O CALCIUM (08/23/2020 4:28 AM [employer]) PTH Intact <4.0(L) 8.0 - 77.0 pg/mL 08/23/2020 5:11 AM [facility]ARN[facility] FILTERER [facility] Blood BLOOD SPECIMEN / Unknown Venipuncture / Unknown 08/23/2020 4:28 AM [employer] 08/23/2020 4:35 AM [employer] Dionte Comer MD LAB - CHEMISTRY ASH WEAVER Performing Organization Address City/[facility]/ZIP Co de Phone Number [address] [address], [facility] [phone] * PREPARE (CROSSMATCH) RBC UNIT(S), 2 Units (08/23/2020 2:17 AM VARN[facility] FILTERER) Unit Description AS1 LR PRBC [facility] Unit ABO B [facility] Unit Rh POS [facility] Product Number R02 [facility] B LOOD [facility] Unit Donor # [id number] [facility] Unit Status released [facility] BLOO D [facility] Product Code [id number] [facility] Blood Type Barcode 7300 [facility] Expiration Date [id number] S BLOOD [facility]ANK LAB Unit Description AS1 LR PRBC [facility] Unit ABO B [facility] Unit Rh POS [facility] Product Number R02 [facility] LO[facility] Unit Donor # [id number] [facility] Unit Status released [facility] D [facility] Product Code [id number] [facility] BLO OD [facility] Blood Type Barcode 7300 [facility] Expiration Date [id number] S BLOOD BANK LAB Blood Bank BLOOD SPECIMEN / Unknown 08/19/2020 6:25 AM [employer] Dionte Comer MD LAB - BLOOD BANK ORD JENISE Performing Organization Address [facility]/ZIP Co de Phone Number [facility] [address] [place] [address], [facility] [phone] * (ABNORMAL) PHOSPHORUS BLOOD (08/22/2020 11:50 PM [employer] FILTERER) Pathologist [facility] Phosphorus 5.0(H) 2.3 - 4.7 mg/dL 08/23/2020 12:22 [address] [facility] Blood BLOOD SPECIMEN / Unknown Venipuncture / Unknown 08/22/2020 11:50 PM [employer] 08/22/2020 6:16 PM [employer] Dionte Comer MD LAB - CHEMISTRY ASH WEAVER [facility] Organization Address City/State/ZIP Co de Phone Number [facility] [address] [place] [address], [facility] [phone] * (ABNORMAL) CBC W/O DIFFERENTIAL (08/22/2020 11:50 PM [employer]) WBC 13.1(H) 3.5 - 10.5 10? 3 /uL 08/23/2020 12:02 AM [facility] RBC 3.91 3.90 - 5.00 10? 6 /uL 08/23/2020 12:02 AM [facility] Hemoglobin 11.4(L) 12.0 - 15.5 g/dL 08/23/2020 12:02 AM [facility] Hematocrit 35.4 35.0 - 45.0 % 08/23/2020 12:02 AM [facility] MCV 90.5 81.0 - 97.0 fL 08/23/2020 12:02 AM [facility] MCH 29.2 28.0 - 34.0 pg 08/23/2020 12:02 AM [facility] MCHC 32.2 32.0 - 36.0 g/dL 08/23/2020 12:02 AM [facility] Platelet Count 273 150 - 400 10? 3 /uL 08/23/2020 12:02 AM [facility] RDW-SD 40.9 36.0 - 50.0 fL 08/23/2020 12:02 AM [facility] RDW-CV 12.4 11.2 - 14.8 % 08/23/2020 12:02 AM [facility] MPV 9.6 9.3 - 12.8 fL 08/23/2020 12:02 AM [facility] nRBC Absolute 0.00 0 10? 3 /uL 08/23/2020 12:02 AM [facility] nRBC Auto 0.0 0 /100 WBC 08/23/2020 12:02 AM [facility] Blood BLOOD SPECIMEN / Unknown Venipuncture / Unknown 08/22/2020 11:50 PM [employer] 08/22/2020 6:16 PM [employer] Dionte Comer MD LAB - HEMATOLOGY ORD ERABLES Performing Organization Address City/[facility]/ZIP Co de Phone Number [facility] [address] [place] [address], [facility] [phone] * (ABNORMAL) BASIC METABOLIC PANEL (CALCIUM TOTAL) (08/22/2020 11:50 PM [employer]) BUN 6(L) 7 - 26 mg/dL 08/23/2020 12:22 AM [facility] Creatinine 0.6 0.6 - 1.2 mg/dL 08/23/2020 12:22 AM [facility] Sodium 145 136 - 145 mmol/L 08/23/2020 12:22 AM [facility] Potassium 3.6 3.5 - 4.5 mmol/L 08/23/2020 12:22 AM [facility] Chloride 99 98 - 107 mmol/L 08/23/2020 12:22 AM [facility] CO2 35(H) 22 - 29 mmol/L 08/23/2020 12:22 AM [facility] Glucose 104 70 - 115 mg/dL 08/23/2020 12:22 AM [facility] Calcium 7.6(L) 8.4 - 10.2 mg/dL 08/23/2020 12:22 AM [facility] Anion Gap 15 8 - 18 08/23/2020 12:22 AM [facility] BUN/Creatinine Ratio 10 7 - 23 08/23/2020 12:22 AM [facility] Osmolality Calculated 298 270 - 300 mOsm/kg 08/23/2020 12:22 AM [facility] eGFR >60 >60 mL/min/1.7 3 m2 08/23/2020 12:22 AM [facility] Blood BLOOD SPECIMEN / Unknown Venipuncture / Unknown 08/22/2020 11:50 PM [employer] 08/22/2020 6:16 PM [facility] [employer] Dionte Comer MD LAB - CHEMISTRY ASH WEAVER [address] [address], [facility] [phone] * (ABNORMAL) CALCIUM IONIZED WHOLE BLOOD (08/22/2020 11:50 PM [facility]) Ionized Calcium Whole Blood 1.02 mmol/L 08/22/2020 11:55 PM [employer]ER [facility] Adjusted Ionized Calcium 0.99(L) 1.19 - 1.34 mmol/L 08/22/2020 11:55 PM [employer] pH Whole Blood 7.34(L) 7.35 - 7.45 08/22/2020 11:55 PM [facility] Blood WHOLE BLOOD SPECIMEN / Unknown Venipuncture / Unknown 08/22/2020 11:50 PM [employer] 08/22/2020 11:54 PM [employer] Dionte Comer MD LAB - CHEMISTRY ASH WEAVER Performing Organization Address [facility]/ZIP Co de Phone Number [address] [address], [facility] [phone] * (ABNORMAL) CALCIUM IONIZED WHOLE BLOOD (08/22/2020 4:36 PM [facility] [employer]) Ionized Calcium Whole Blood 0.93 mmol/L 08/22/2020 4:43 PM [employer] Adjusted Ionized Calcium 0.92(L) 1.19 - 1.34 mmol/L 08/22/2020 4:43 PM [employer] pH Whole Blood 7.39 7.35 - 7.45 08/22/2020 4:43 PM [employer] Blood WHOLE BLOOD SPECIMEN / Unknown Venipuncture / Unknown 08/22/2020 4:36 PM [employer] 08/22/2020 4:41 PM [employer] Dionte Comer MD LAB - CHEMISTRY ORDE RABLES [facility] [address] [place] [address], [facility] [phone] * (ABNORMAL) RENAL FUNCTION PANEL (08/22/2020 11:05 AM [facility]) BUN 6(L) 7 - 26 mg/dL 08/22/2020 11:36 AM [facility] Creatinine 0.5(L) 0.6 - 1.2 mg/dL 08/22/2020 11:36 AM [facility] Sodium 145 136 - 145 mmol/L 08/22/2020 11:36 AM [facility] Potassium 3.9 3.5 - 4.5 mmol/L 08/22/2020 11:36 AM [facility] Chloride 99 98 - 107 mmol/L 08/22/2020 11:36 AM [facility] CO2 33(H) 22 - 29 mmol/L 08/22/2020 11:36 AM [facility] Glucose 118(H) 70 - 115 mg/dL 08/22/2020 11:36 AM [facility] Albumin 3.0(L) 3.4 - 5.0 g/dL 08/22/2020 11:36 AM [facility] Calcium 7.5(L) 8.4 - 10.2 mg/dL 08/22/2020 11:36 AM [facility] Phosphorus 4.9(H) 2.3 - 4.7 mg/dL 08/22/2020 11:36 AM [facility] Anion Gap 17 8 - 18 08/22/2020 11:36 AM [facility] BUN/Creatinine Ratio 12 7 - 23 08/22/2020 11:36 AM [facility] Osmolality Calculated 299 270 - 300 mOsm/kg 08/22/2020 11:36 AM [facility] eGFR >60 >60 mL/min/1.7 3 m2 08/22/2020 11:36 AM [facility] Blood BLOOD SPECIMEN / Unknown Venipuncture / Unknown 08/22/2020 11:05 AM [facility] 08/22/2020 11:12 AM [facility] Dionte Comer MD LAB - CHEMISTRY ASH WE[employer]ER [address] [address], [facility] [phone] * MAGNESIUM BLOOD (08/22/2020 11:05 AM [facility] [employer]) Magnesium 1.9 1.6 - 2.6 mg/dL 08/22/2020 11:36 AM [facility] Blood BLOOD SPECIMEN / Unknown Venipuncture / Unknown 08/22/2020 11:05 AM [facility] 08/22/2020 11:12 AM [facility] [employer] Dionte Comer MD LAB - CHEMISTRY ASH WE[employer]ER Performing Organization Address City/[facility]/ZIP Co de Phone Number [address] [address], [facility] [phone] * (ABNORMAL) CALCIUM IONIZED WHOLE BLOOD (08/22/2020 11:05 AM [facility] [employer]) Ionized Calcium Whole Blood 1.04 mmol/L 08/22/2020 11:12 AM [facility] Adjusted Ionized Calcium 1.01(L) 1.19 - 1.34 mmol/L 08/22/2020 11:12 AM [facility] pH Whole Blood 7.35 7.35 - 7.45 08/22/2020 11:12 AM [facility] Blood WHOLE BLOOD SPECIMEN / Unknown Venipuncture / Unknown 08/22/2020 11:05 AM [facility] [employer] 08/22/2020 11:11 AM [facility] Dionte Comer MD LAB - CHEMISTRY ASH WE[employer]ER [address] [address], [place] [phone] * (ABNORMAL) CALCIUM IONIZED WHOLE BLOOD (08/22/2020 5:04 AM [facility]) Ionized Calcium Whole Blood 1.11 mmol/L 08/22/2020 5:09 AM [facility] Adjusted Ionized Calcium 1.08(L) 1.19 - 1.34 mmol/L 08/22/2020 5:09 AM [facility] pH Whole Blood 7.35 7.35 - 7.45 08/22/2020 5:09 AM [facility] Blood WHOLE BLOOD SPECIMEN / Unknown Venipuncture / Unknown 08/22/2020 5:04 AM [facility] 08/22/2020 5:07 AM [facility] Dionte Comer MD LAB - CHEMISTRY [facility] [address] [address], [place] [phone] * PHOSPHORUS BLOOD (08/21/2020 11:44 PM [facility]) Phosphorus 4.4 2.3 - 4.7 mg/dL 08/22/2020 12:20 AM [facility] Blood BLOOD SPECIMEN / Unknown Venipuncture / Unknown 08/21/2020 11:44 PM [facility] 08/21/2020 6:16 PM [facility] Dionte Comer MD LAB - CHEMISTRY [facility] Performing Organization Address City/[facility]/ZIP Co de Phone Number [address] [address], [place] [phone] * MAGNESIUM BLOOD (08/21/2020 11:44 PM [facility]) Magnesium 1.6 1.6 - 2.6 mg/dL 08/22/2020 12:20 AM [facility] Blood BLOOD SPECIMEN / Unknown Venipuncture / Unknown 08/21/2020 11:44 PM [facility] 08/21/2020 6:16 PM [facility] Dionte Comer MD LAB - CHEMISTRY [facility] [address] [address], [place] [phone] * (ABNORMAL) CBC W/O DIFFERENTIAL (08/21/2020 11:44 PM [facility]) WBC 10.3 3.5 - 10.5 10? 3 /uL 08/21/2020 11:55 PM [facility] RBC 3.94 3.90 - 5.00 10? 6 /uL 08/21/2020 11:55 PM [facility] Hemoglobin 11.4(L) 12.0 - 15.5 g/dL 08/21/2020 11:55 PM [facility] Hematocrit 35.7 35.0 - 45.0 % 08/21/2020 11:55 PM [facility] MCV 90.6 81.0 - 97.0 fL 08/21/2020 11:55 PM [facility] MCH 28.9 28.0 - 34.0 pg 08/21/2020 11:55 PM [facility] MCHC 31.9(L) 32.0 - 36.0 g/dL 08/21/2020 11:55 PM [facility] Platelet Count 270 150 - 400 10? 3 /uL 08/21/2020 11:55 PM [facility] RDW-SD 41.8 36.0 - 50.0 fL 08/21/2020 11:55 PM [facility] RDW-CV 12.4 11.2 - 14.8 % 08/21/2020 11:55 PM [facility] MPV 9.6 9.3 - 12.8 fL 08/21/2020 11:55 PM [facility] nRBC Absolute 0.00 0 10? 3 /uL 08/21/2020 11:55 PM [facility] nRBC Auto 0.0 0 /100 WBC 08/21/2020 11:55 PM [facility] Blood BLOOD SPECIMEN / Unknown Venipuncture / Unknown 08/21/2020 11:44 PM [facility] 08/21/2020 6:16 PM [facility] Dionte Comer MD LAB - HEMATOLOGY ORD ERABLES [facility] [address] [place] [address], [facility] [phone] * (ABNORMAL) BASIC METABOLIC PANEL (CALCIUM TOTAL) (08/21/2020 11:44 PM [facility]) BUN 5(L) 7 - 26 mg/dL 08/22/2020 12:20 AM [facility] Creatinine 0.6 0.6 - 1.2 mg/dL 08/22/2020 12:20 AM [facility] Sodium 144 136 - 145 mmol/L 08/22/2020 12:20 AM [facility] Potassium 3.6 3.5 - 4.5 mmol/L 08/22/2020 12:20 AM [facility] Chloride 101 98 - 107 mmol/L 08/22/2020 12:20 AM [facility] CO2 34(H) 22 - 29 mmol/L 08/22/2020 12:20 AM [facility] Glucose 117(H) 70 - 115 mg/dL 08/22/2020 12:20 AM [facility] Calcium 8.2(L) 8.4 - 10.2 mg/dL 08/22/2020 12:20 AM [facility] Anion Gap 13 8 - 18 08/22/2020 12:20 AM [facility] BUN/Creatinine Ratio 8 7 - 23 08/22/2020 12:20 AM [facility] Osmolality Calculated 296 270 - 300 mOsm/kg 08/22/2020 12:20 AM [facility] eGFR >60 >60 mL/min/1.7 3 m2 08/22/2020 12:20 AM [facility] Blood BLOOD SPECIMEN / Unknown Venipuncture / Unknown 08/21/2020 11:44 PM [facility] 08/21/2020 6:16 PM [facility] Dionte Comer MD LAB - CHEMISTRY [facility] Organization Address City/State/ZIP Co de Phone Number [address] [address], [facility] [phone] * (ABNORMAL) CALCIUM IONIZED WHOLE BLOOD (08/21/2020 11:43 PM [facility]TERER) Ionized Calcium Whole Blood 1.17 mmol/L 08/21/2020 11:50 PM [facility] Adjusted Ionized Calcium 1.15(L) 1.19 - 1.34 mmol/L 08/21/2020 11:50 PM [facility] pH Whole Blood 7.37 7.35 - 7.45 08/21/2020 11:50 PM [facility] Blood WHOLE BLOOD SPECIMEN / Unknown Venipuncture / Unknown 08/21/2020 11:43 PM [facility] 08/21/2020 11:49 PM [facility] [employer] Dionte Comer MD LAB - CHEMISTRY [facility] [address] [address], [facility] [phone] * (ABNORMAL) CALCIUM IONIZED WHOLE BLOOD (08/21/2020 5:34 PM [facility]) Ionized Calcium Whole Blood 1.08 mmol/L 08/21/2020 5:44 PM [facility] Adjusted Ionized Calcium 1.06(L) 1.19 - 1.34 mmol/L 08/21/2020 5:44 PM [facility] pH Whole Blood 7.36 7.35 - 7.45 08/21/2020 5:44 PM [facility] Blood WHOLE BLOOD SPECIMEN / Unknown Venipuncture / Unknown 08/21/2020 5:34 PM [facility] [employer] 08/21/2020 5:42 PM [employer] [employer] Dionte Comer MD LAB - CHEMISTRY [facility] [address] [address], [facility] [phone] * MAGNESIUM BLOOD (08/21/2020 12:01 PM [facility] [employer]) Magnesium 1.7 1.6 - 2.6 mg/dL 08/21/2020 12:38 PM [facility] Blood BLOOD SPECIMEN / Unknown Venipuncture / Unknown 08/21/2020 12:01 PM [facility] [employer] 08/21/2020 12:16 PM [facility] [employer] Dionte Comer MD LAB - CHEMISTRY [employer] [employer] Performing Organization Address City/[facility]/ZIP Co de Phone Number [address] [address], [facility] [phone] * (ABNORMAL) CALCIUM IONIZED WHOLE BLOOD (08/21/2020 11:07 AM [facility] FIL[employer]) Ionized Calcium Whole Blood 1.09 mmol/L 08/21/2020 11:13 AM [facility] [employer] Adjusted Ionized Calcium 1.08(L) 1.19 - 1.34 mmol/L 08/21/2020 11:13 AM [facility] [employer] pH Whole Blood 7.39 7.35 - 7.45 08/21/2020 11:13 AM [facility] Blood WHOLE BLOOD SPECIMEN / Unknown Venipuncture / Unknown 08/21/2020 11:07 AM [facility] [employer] 08/21/2020 11:11 AM [employer]ER Dionte Comer MD LAB - CHEMISTRY A[employer] WE[employer]ER Performing Organization Address [facility] Co de Phone Number [address] [address], [facility] [phone] * (ABNORMAL) THYROGLOBULIN BY ANTONIETA RFLXED (08/21/2020 4:25 AM [facility] FILTERER) [facility] Thyroglobulin by ANTONIETA 192.2(H) 1.5 - 38.5 ng/mL 08/22/2020 6:07 PM [facility]ARN[facility]TERER [facility] ([facility]) Comment: According to the National [...] Unknown Venipuncture / Unknown 08/21/2020 4:25 AM [facility] FILTERER 08/21/2020 4:49 AM [facility]ARN[facility] FILTERER Narrative [facility] ([facility]) - 08/22/2020 6:07 PM [facility]ARNISH FILTERER Performed at: ??01 - [facility] [address] [place], [place] ??[id number] Supervisor Instrument Mechanics: Oral Melendez PhD, Phone: ??[phone] Dionte Comer MD LAB - CHEMISTRY ASH WE[employer]) [address] [place] [address], [facility] * (ABNORMAL) CALCIUM IONIZED WHOLE BLOOD (08/21/2020 4:25 AM [facility]ARN[facility] FILTERER) Pathologist [facility] Ionized Calcium Whole Blood 1.14 mmol/L 08/21/2020 4:31 AM [facility] Adjusted Ionized Calcium 1.12(L) 1.19 - 1.34 mmol/L 08/21/2020 4:31 AM [facility] pH Whole Blood 7.37 7.35 - 7.45 08/21/2020 4:31 AM [facility] Blood WHOLE BLOOD SPECIMEN / Unknown Venipuncture / Unknown 08/21/2020 4:25 AM [facility] [employer] 08/21/2020 4:28 AM [employer] FILTERER Dionte Comer MD LAB - CHEMISTRY ASH WEAVER [facility] [place] [phone] [phone] * THYROGLOBULIN REFLEX PROFILE (08/21/2020 4:25 AM [facility] FILTERER) Thyroglobulin Antibody <1.0 0.0 - 0.9 IU/mL 08/22/2020 6:07 PM [facility]ARN[facility] FILTERER [facility] ([facility]) Comment:Thyroglobulin Antibo dy measured by Lisbet Marcos Methodology Blood BLOOD SPECIMEN / Unknown Venipuncture / Unknown 08/21/2020 4:25 AM [facility] FILTERER 08/21/2020 4:49 AM VARNISH FILTERER Narrative [facility] ([facility]) - 08/22/2020 6:07 PM VARN[facility] FILTERER Performed at: ??01 - [facility] [address], [place] ??[id number] Supervisor Instrument Mechanics: Oral Melendez PhD, Phone: ??[phone] Dionte Comer MD LAB - CHEMISTRY ASH WE[employer]ER [facility] ([facility]) [address] [place] [address] * VITAMIN D 25-HYDROXY (08/21/2020 4:25 AM [facility] FILTERER) Vitamin D, 25 Hydroxy 32.0 See comment: ng/mL 08/21/2020 5:18 AM [facility] Comment: The recommendations for 25-Hydroxy Vitamin [...] Unknown Venipuncture / Unknown 08/21/2020 4:25 AM [facility] [employer]TERER 08/21/2020 4:29 AM [employer] FILTERER Dionte Comer MD LAB - CHEMISTRY ASH WE[employer]ER [facility] [address] [place] [address], [facility] [phone] * PHOSPHORUS BLOOD (08/20/2020 11:24 PM [facility]ARN[facility] FILTERER) Pathologist [facility] Phosphorus 4.5 2.3 - 4.7 mg/dL 08/21/2020 12:00 AM [facility] Blood BLOOD SPECIMEN / Unknown Venipuncture / Unknown 08/20/2020 11:24 PM [facility] [employer]TERER 08/20/2020 6:16 PM [employer] FILTERER Dionte Comer MD LAB - CHEMISTRY [employer] [employer]ER Performing Organization Address [facility]/ZIP Co de Phone Number [address] [address], [facility] [phone] * (ABNORMAL) MAGNESIUM BLOOD (08/20/2020 11:24 PM [facility] FILTERER) Magnesium 1.5(L) 1.6 - 2.6 mg/dL 08/21/2020 12:00 AM [facility] Blood BLOOD SPECIMEN / Unknown Venipuncture / Unknown 08/20/2020 11:24 PM [facility] [employer]TERER 08/20/2020 6:16 PM [facility] FILTERER Dionte Comer MD LAB - CHEMISTRY [employer] [employer]ER Performing Organization Address [facility]/ZIP Co de Phone Number [address] [address], [facility] [phone] * (ABNORMAL) CBC W/O DIFFERENTIAL (08/20/2020 11:24 PM [facility] FILTERER) WBC 12.6(H) 3.5 - 10.5 10? 3 /uL 08/20/2020 11:40 PM [facility] RBC 4.41 3.90 - 5.00 10? 6 /uL 08/20/2020 11:40 PM [facility] Hemoglobin 12.9 12.0 - 15.5 g/dL 08/20/2020 11:40 PM [facility] Hematocrit 40.2 35.0 - 45.0 % 08/20/2020 11:40 PM [facility] MCV 91.2 81.0 - 97.0 fL 08/20/2020 11:40 PM [facility] MCH 29.3 28.0 - 34.0 pg 08/20/2020 11:40 PM [facility] MCHC 32.1 32.0 - 36.0 g/dL 08/20/2020 11:40 PM [facility] Platelet Count 261 150 - 400 10? 3 /uL 08/20/2020 11:40 PM [facility] RDW-SD 43.8 36.0 - 50.0 fL 08/20/2020 11:40 PM [facility] RDW-CV 13.0 11.2 - 14.8 % 08/20/2020 11:40 PM [facility] MPV 9.6 9.3 - 12.8 fL 08/20/2020 11:40 PM [facility] nRBC Absolute 0.00 0 10? 3 /uL 08/20/2020 11:40 PM [facility] nRBC Auto 0.0 0 /100 WBC 08/20/2020 11:40 PM [facility] Blood BLOOD SPECIMEN / Unknown Venipuncture / Unknown 08/20/2020 11:24 PM [facility] [employer]ER 08/20/2020 6:16 PM VARNISH FILTERER Dionte Comer MD LAB - HEMATOLOGY ORD ERABLES [facility] [address] [place] [address], [facility] [phone] * (ABNORMAL) BASIC METABOLIC PANEL (CALCIUM TOTAL) (08/20/2020 11:24 PM [facility] FILTERER) BUN 7 7 - 26 mg/dL 08/21/2020 12:00 AM [facility] Creatinine 0.7 0.6 - 1.2 mg/dL 08/21/2020 12:00 AM [facility] Sodium 136 136 - 145 mmol/L 08/21/2020 12:00 AM [facility] Potassium 3.7 3.5 - 4.5 mmol/L 08/21/2020 12:00 AM [facility] Chloride 98 98 - 107 mmol/L 08/21/2020 12:00 AM [facility] CO2 30(H) 22 - 29 mmol/L 08/21/2020 12:00 AM [facility] Glucose 133(H) 70 - 115 mg/dL 08/21/2020 12:00 AM [facility] Calcium 8.2(L) 8.4 - 10.2 mg/dL 08/21/2020 12:00 AM [facility] Anion Gap 12 8 - 18 08/21/2020 12:00 AM [facility] BUN/Creatinine Ratio 10 7 - 23 08/21/2020 12:00 AM [facility] Osmolality Calculated 282 270 - 300 mOsm/kg 08/21/2020 12:00 AM [facility] eGFR >60 >60 mL/min/1.7 3 m2 08/21/2020 12:00 AM [facility] Blood BLOOD SPECIMEN / Unknown Venipuncture / Unknown 08/20/2020 11:24 PM [facility] [employer] 08/20/2020 6:16 PM [facility] FILTERER Dionte Comer MD LAB - CHEMISTRY ASH WE[employer]ER Performing Organization Address City/[facility]/ZIP Co de Phone Number [address] [address], [facility] [phone] * (ABNORMAL) CALCIUM IONIZED WHOLE BLOOD (08/20/2020 11:04 PM V[facility] FILTERER) Ionized Calcium Whole Blood 1.18 mmol/L 08/20/2020 11:13 PM [facility] Adjusted Ionized Calcium 1.16(L) 1.19 - 1.34 mmol/L 08/20/2020 11:13 PM [facility] pH Whole Blood 7.37 7.35 - 7.45 08/20/2020 11:13 PM [facility] Blood WHOLE BLOOD SPECIMEN / Unknown Venipuncture / Unknown 08/20/2020 11:04 PM [facility] [employer]ER 08/20/2020 11:10 PM [employer] [employer]ER Dionte Comer MD LAB - CHEMISTRY ASH WE[employer]ER [address] [address], [facility] [phone] * (ABNORMAL) CALCIUM IONIZED WHOLE BLOOD (08/20/2020 5:46 PM [facility] FILTERER) Ionized Calcium Whole Blood 1.17 mmol/L 08/20/2020 5:55 PM [facility] Adjusted Ionized Calcium 1.16(L) 1.19 - 1.34 mmol/L 08/20/2020 5:55 PM [facility] pH Whole Blood 7.38 7.35 - 7.45 08/20/2020 5:55 PM [facility] Blood WHOLE BLOOD SPECIMEN / Unknown Venipuncture / Unknown 08/20/2020 5:46 PM [facility] [employer]ER 08/20/2020 5:53 PM [facility] FILTERER Dionte Comer MD LAB - CHEMISTRY ASH WE[employer]ER [facility] [address] [place] [address], [facility] [phone] * (ABNORMAL) CALCIUM IONIZED WHOLE BLOOD (08/20/2020 11:41 AM [facility] FILTERER) Ionized Calcium Whole Blood 1.13 mmol/L 08/20/2020 11:48 AM [facility] Adjusted Ionized Calcium 1.08(L) 1.19 - 1.34 mmol/L 08/20/2020 11:48 AM [facility] pH Whole Blood 7.31(L) 7.35 - 7.45 08/20/2020 11:48 AM [facility] Blood WHOLE BLOOD SPECIMEN / Unknown Venipuncture / Unknown 08/20/2020 11:41 AM [facility] FILTERER 08/20/2020 11:46 AM [facility] FILTERER Dionte Comer MD LAB - CHEMISTRY ASH WEAVER [facility] [address] [place] [address], [place] [phone] * (ABNORMAL) CALCIUM IONIZED WHOLE BLOOD (08/20/2020 5:08 AM V[facility] FILTERER) Ionized Calcium Whole Blood 1.01 mmol/L 08/20/2020 5:14 AM [facility] Adjusted Ionized Calcium 0.98(L) 1.19 - 1.34 mmol/L 08/20/2020 5:14 AM [facility] pH Whole Blood 7.35 7.35 - 7.45 08/20/2020 5:14 AM [facility] FILTER[facility] Blood WHOLE BLOOD SPECIMEN / Unknown Venipuncture / Unknown 08/20/2020 5:08 AM [employer] FILTERER 08/20/2020 5:12 AM [employer] FILTERER Dionte Comer MD LAB - CHEMISTRY ASH WEAVER [address] [address], [place] [phone] * (ABNORMAL) PTH INTACT W/O CALCIUM (08/20/2020 5:08 AM VARN[facility] FILTERER) PTH Intact <4.0(L) 8.0 - 77.0 pg/mL 08/20/2020 5:43 AM [facility] FILTERER [facility] Blood BLOOD SPECIMEN / Unknown Venipuncture / Unknown 08/20/2020 5:08 AM [facility] FILTERER 08/20/2020 5:12 AM [employer] FILTERER Dionte Comer MD LAB - CHEMISTRY ASH WEAVER Performing Organization Address City/[facility]/ZIP Co de Phone Number [address] [address], [place] [phone] * (ABNORMAL) PHOSPHORUS BLOOD (08/19/2020 11:48 PM [facility] FILTERER) Phosphorus 6.5(H) 2.3 - 4.7 mg/dL 08/20/2020 12:30 AM [facility] FILTERER [facility] Blood BLOOD SPECIMEN / Unknown Venipuncture / Unknown 08/19/2020 11:48 PM [employer]TERER 08/19/2020 6:16 PM [employer] FILTERER Dionte Comer MD LAB - CHEMISTRY ASH WE[employer]ER [address] [address], [place] [phone] * MAGNESIUM BLOOD (08/19/2020 11:48 PM [facility] FILTERER) Magnesium 1.6 1.6 - 2.6 mg/dL 08/20/2020 12:30 AM [facility] Blood BLOOD SPECIMEN / Unknown Venipuncture / Unknown 08/19/2020 11:48 PM [facility] FILTERER 08/19/2020 6:16 PM [employer]ARN[employer] FILTERER Dionte Comer MD LAB - CHEMISTRY ASH WEAVER [facility] Organization Address City/State/ZIP Co de Phone Number [facility] [address] [place] [address], [facility] [phone] * (ABNORMAL) CBC W/O DIFFERENTIAL (08/19/2020 11:48 PM V[facility] FILTERER) WBC 15.3(H) 3.5 - 10.5 10? 3 /uL 08/20/2020 12:05 AM [facility] RBC 4.82 3.90 - 5.00 10? 6 /uL 08/20/2020 12:05 AM [facility] Hemoglobin 14.3 12.0 - 15.5 g/dL 08/20/2020 12:05 AM [facility] Hematocrit 43.7 35.0 - 45.0 % 08/20/2020 12:05 AM [facility] MCV 90.7 81.0 - 97.0 fL 08/20/2020 12:05 AM [facility] MCH 29.7 28.0 - 34.0 pg 08/20/2020 12:05 AM [facility] MCHC 32.7 32.0 - 36.0 g/dL 08/20/2020 12:05 AM [facility] Platelet Count 280 150 - 400 10? 3 /uL 08/20/2020 12:05 AM [facility] RDW-SD 43.7 36.0 - 50.0 fL 08/20/2020 12:05 AM [facility] RDW-CV 13.1 11.2 - 14.8 % 08/20/2020 12:05 AM [facility] MPV 9.4 9.3 - 12.8 fL 08/20/2020 12:05 AM [facility] nRBC Absolute 0.00 0 10? 3 /uL 08/20/2020 12:05 AM [facility] nRBC Auto 0.0 0 /100 WBC 08/20/2020 12:05 AM [facility] Blood BLOOD SPECIMEN / Unknown Venipuncture / Unknown 08/19/2020 11:48 PM [facility] [employer]ER 08/19/2020 6:16 PM [employer] FILTERER Dionte Comer MD LAB - HEMATOLOGY ORD ERABLES [facility] [address] [place] [address], [facility] [phone] * (ABNORMAL) BASIC METABOLIC PANEL (CALCIUM TOTAL) (08/19/2020 11:48 PM [facility] FILTERER) BUN 10 7 - 26 mg/dL 08/20/2020 12:30 AM [facility] Creatinine 0.7 0.6 - 1.2 mg/dL 08/20/2020 12:30 AM [facility] Sodium 137 136 - 145 mmol/L 08/20/2020 12:30 AM [facility] Potassium 4.5 3.5 - 4.5 mmol/L 08/20/2020 12:30 AM [facility] Chloride 103 98 - 107 mmol/L 08/20/2020 12:30 AM [facility] CO2 24 22 - 29 mmol/L 08/20/2020 12:30 AM [facility] Glucose 204(H) 70 - 115 mg/dL 08/20/2020 12:30 AM [facility] Calcium 7.7(L) 8.4 - 10.2 mg/dL 08/20/2020 12:30 AM [facility] Anion Gap 15 8 - 18 08/20/2020 12:30 AM [facility] BUN/Creatinine Ratio 14 7 - 23 08/20/2020 12:30 AM [facility] Osmolality Calculated 289 270 - 300 mOsm/kg 08/20/2020 12:30 AM [facility] eGFR >60 >60 mL/min/1.7 3 m2 08/20/2020 12:30 AM [facility] Blood BLOOD SPECIMEN / Unknown Venipuncture / Unknown 08/19/2020 11:48 PM [facility] [employer] 08/19/2020 6:16 PM [employer]ER Dionte Comer MD LAB - CHEMISTRY ASH WEAVER [address] [address], [facility] [phone] * (ABNORMAL) CALCIUM IONIZED WHOLE BLOOD (08/19/2020 11:48 PM [facility] FILTERER) Ionized Calcium Whole Blood 1.10 mmol/L 08/20/2020 12:02 AM [facility] [employer] Adjusted Ionized Calcium 1.05(L) 1.19 - 1.34 mmol/L 08/20/2020 12:02 AM [facility] pH Whole Blood 7.30(L) 7.35 - 7.45 08/20/2020 12:02 AM [facility] [employer] Blood WHOLE BLOOD SPECIMEN / Unknown Venipuncture / Unknown 08/19/2020 11:48 PM [facility] FIL[employer]ER 08/19/2020 11:55 PM [facility]TERER Dionte Comer MD LAB - CHEMISTRY ASH WEAVER Performing Organization Address [facility]/ZIP Co de Phone Number [address] [address], [facility] [phone] * (ABNORMAL) CALCIUM IONIZED WHOLE BLOOD (08/19/2020 6:16 PM [facility] FILTERER) Ionized Calcium Whole Blood 1.09 mmol/L 08/19/2020 6:30 PM [facility] [employer] Adjusted Ionized Calcium 0.96(L) 1.19 - 1.34 mmol/L 08/19/2020 6:30 PM [facility] [employer] pH Whole Blood 7.16(L) 7.35 - 7.45 08/19/2020 6:30 PM [facility] [employer] Blood WHOLE BLOOD SPECIMEN / Unknown Venipuncture / Unknown 08/19/2020 6:16 PM [employer] FILTERER 08/19/2020 6:25 PM [employer]TERER Dionte Comer MD LAB - CHEMISTRY ASH WEAVER [facility] [address] [place] [address], [facility] [phone] * XR ABDOMEN KUB PORTABLE (08/19/2020 4:52 PM V[employer] FILTERER) Anatomical Region Laterality Modality Abdomen Radiographic Antonieta ging 08/20/2020 7:32 AM [facility] FILTERER Impressions 08/20/2020 9:00 AM [facility] FILTERER Findings/impression: 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 Dictated by Kendall Quiroz MD (resident physician in radiology). I, Dr. ROGER HOUSE have personally reviewed and interpreted this examination/study. This report was electronically signed by ROGER HOUSE ??on 08/20/2020 9:00 AM . Narrative 08/20/2020 9:00 AM [facility] EXAMINATION: XR ABDOMEN KUB PORTABLE HISTORY: J39.8: [...] the stomach. Dictated by Kendall Quiroz MD (resident physician in radiology). I, Dr. ROGER HOUSE have personally reviewed and interpreted this examination/study. This report was electronically signed by ROGER HOUSE on 08/20/2020 9:00 AM . Dionte Comer MD DIAGNOSTIC IMAGING O RDERABLES * PATHOLOGY TISSUE (08/19/2020 9:43 AM VARNISH FILTERER) Case Report Surgical Pathology Report ? Case: [id number] ? Authorizing Provider: ??Dionte Comer MD ?Collected: [...] ink true margin ? 1 7:23 AM [facility] Final Diagnosis Lymph nodes, left [...] Submucosal tissue involved by tumor 7:23 AM [facility] Microscopic Description and Comment [...] carcinoma. Please see synoptic for further details. 7:23 AM [facility] Clinical History The patient is a 60 year old woman with thyroid mass and involvement with trachea, suspicious for follicular neoplasm. 7:23 AM [facility] Intraoperative Consultation Brought fresh [...] Michelle Anthony M.D., Ph.D. 1 7:23 AM [facility] Gross Description The requisition [...] bisected lymph node A2-A3 whole lymph nodes, L0-L9-uwggcyiul adipose tissue. Received in formalin, specimen B is a 5 x 4.5 x 0.7 cm aggregate of pink to yellow-tovar fibroadipose tissue. Multiple lymph nodes are identified, 0.3-1.3 cm in greatest dimension. Entirely submitted as follows: B1-2 bisected lymph nodes, 1 differentially inked green, B2-whole lymph nodes, Y0-M4-kczssgscm adipose tissue Received in formalin, specimen C is a 5 x 3 x 1.4 cm aggregate of fibroadipose tissue. Multiple lymph nodes are identified, 0.3-2.4 cm in greatest dimension. The largest lymph node is grossly positive. Entirely submitted as follows: C1-C2-1 multiply sectioned lymph node, C3-C4-whole lymph nodes and adipose tissue, H5-G0-wwiqoglcm adipose tissue with possible nodes. Received in [...] are identified, 0.4-1.5 cm in greatest dimension. Environmental Engineering Intern sections are submitted to include all identifiable [...] with brown-tovar, mildly firm, unremarkable cut surfaces. Environmental Engineering Intern sections submitted as follows (to include every [...] and inferior tracheal margins, frozen section control, X9-P3-iftkglsvn cross sections. Received in formalin after frozen section, originally labeled P and relabeled as specimen O are fragments as described in the intraoperative consultation. The frozen section is entirely submitted in cassette O1. LJ 7:23 AM [facility] Addendum 1 A Ord-8 immunostain performed on specimen G, the frozen remnant of the right recurrent laryngeal nerve, highlights the tumor cells with weak nuclear reactivity. 7:23 AM [facility] Addendum electronically signed by Michelle Anthony MD on 09/03/2020 at 7:23 AM Disclaimer The performance characteristics of all immunohistochemical and indirect immunofluorescence stains (if any) cited in this report were determined by the Histopathology Laboratory of [facility]. Some of these tests were developed by [...] by the attending (teaching) pathologist. 7:23 AM [facility] Synoptic Report THYROID GLAND [...] (pT): ?pT4a Regional Lymph Nodes (pN): ?pN1b 7:23 AM [facility] Embedded Images 7:23 AM [facility] Biopsy, Excision (Lymph Node, Regional Resection) 08/19/2020 9:43 AM [facility] 08/20/2020 6:05 AM [facility] Comment:Pre-op diagnosis: TRACHEAL MASS, HOARSENESS, RIGHT VOCAL CORD PARALYSIS, LYMPHADENECTOMY HEAD AND NECK Biopsy, Excision (Lymph Node, Regional Resection) 08/19/2020 9:43 AM [facility] 08/20/2020 6:05 AM [facility] Comment:Pre-op diagnosis: TRACHEAL MASS, HOARSENESS, RIGHT VOCAL CORD PARALYSIS, LYMPHADENECTOMY HEAD AND NECK Biopsy, Excision (Lymph Node, Regional Resection) 08/19/2020 9:43 AM [facility] 08/20/2020 6:05 AM [facility] Comment:Pre-op diagnosis: TRACHEAL MASS, HOARSENESS, RIGHT VOCAL CORD PARALYSIS, LYMPHADENECTOMY HEAD AND NECK Lymph Node Dissection (Lymph Node, Regional Resection) 08/19/2020 10:07 AM [facility] [employer] 08/20/2020 6:05 AM [facility] Comment:Pre-op diagnosis: TRACHEAL MASS, HOARSENESS, RIGHT VOCAL CORD PARALYSIS, LYMPHADENECTOMY HEAD AND NECK Lymph Node Dissection (Lymph Node, Regional Resection) 08/19/2020 10:27 AM [facility] [employer]ER 08/20/2020 6:05 AM [facility] Comment:Pre-op diagnosis: TRACHEAL MASS, HOARSENESS, RIGHT VOCAL CORD PARALYSIS, LYMPHADENECTOMY HEAD AND NECK Lymph Node Dissection (Lymph Node, Regional Resection) 08/19/2020 10:28 AM [facility] [employer]ER 08/20/2020 6:05 AM [facility] Comment:Pre-op diagnosis: TRACHEAL MASS, HOARSENESS, RIGHT VOCAL CORD PARALYSIS, LYMPHADENECTOMY HEAD AND NECK Biopsy, Excision (Soft Tissue, Other) 08/19/2020 11:45 AM [facility] [employer] 08/20/2020 6:05 AM [facility] Comment:Pre-op diagnosis: TRACHEAL MASS, HOARSENESS, RIGHT VOCAL CORD PARALYSIS, LYMPHADENECTOMY HEAD AND NECK Biopsy, Excision ENTIRE LOBE OF THYROID GLAND / Unknown 08/19/2020 11:55 AM [facility] [employer] 08/20/2020 6:05 AM VARNISH FILTERER Comment:Pre-op diagnosis: TRACHEAL MASS, HOARSENESS, RIGHT VOCAL CORD PARALYSIS, LYMPHADENECTOMY HEAD AND NECK Biopsy, Excision (Soft Tissue, Other) 08/19/2020 12:06 PM [employer]ARNISH FILTERER 08/20/2020 6:05 AM VARNISH FILTERER Comment:Pre-op diagnosis: TRACHEAL MASS, HOARSENESS, RIGHT VOCAL CORD PARALYSIS, LYMPHADENECTOMY HEAD AND NECK Biopsy, Excision (Soft Tissue, Other) 08/19/2020 12:09 PM VARNISH FILTERER 08/20/2020 6:05 AM VARNISH FILTERER Comment:Pre-op diagnosis: TRACHEAL MASS, HOARSENESS, RIGHT VOCAL CORD PARALYSIS, LYMPHADENECTOMY HEAD AND NECK Biopsy, Excision SOFT TISSUE MASS / Unknown 08/19/2020 12:16 PM [employer]ARNISH FILTERER 08/20/2020 6:05 AM VARNISH FILTERER Comment:Pre-op diagnosis: TRACHEAL MASS, HOARSENESS, RIGHT VOCAL CORD PARALYSIS, LYMPHADENECTOMY HEAD AND NECK Biopsy, Excision (Parathyroid) 08/19/2020 12:19 PM [employer]ARNISH FILTERER 08/20/2020 6:05 AM VARNISH FILTERER Comment:Pre-op diagnosis: TRACHEAL MASS, HOARSENESS, RIGHT VOCAL CORD PARALYSIS, LYMPHADENECTOMY HEAD AND NECK Resection with Tumor ENTIRE LOBE OF THYROID GLAND / Unknown 08/19/2020 1:15 PM VARNISH FILTERER 08/20/2020 6:05 AM VARNISH FILTERER Comment:Pre-op diagnosis: TRACHEAL MASS, HOARSENESS, RIGHT VOCAL CORD PARALYSIS, LYMPHADENECTOMY HEAD AND NECK Biopsy, Excision ENTIRE TRACHEA / Unknown 08/19/2020 1:24 PM VARNISH FILTERER 08/20/2020 6:05 AM VARNISH FILTERER Comment:Pre-op diagnosis: TRACHEAL MASS, HOARSENESS, RIGHT VOCAL CORD PARALYSIS, LYMPHADENECTOMY HEAD AND NECK Biopsy, Excision ENTIRE TRACHEA / Unknown 08/19/2020 1:25 PM VARNISH FILTERER 08/20/2020 6:05 AM VARNISH FILTERER Comment:Pre-op diagnosis: TRACHEAL MASS, HOARSENESS, RIGHT VOCAL CORD PARALYSIS, LYMPHADENECTOMY HEAD AND NECK Dionte Comer MD LAB - PATHOLOGY/CYTO LOGY ORDERABLES Performing Organization Address City/State/[facility] Co de Phone Number [facility] PATHOLOGY LAB [facility] [place], [place] [address] [phone] * TYPE + SCREEN PANEL (08/19/2020 6:18 AM VARNISH FILTERER) Antibody Screen NEG 7:03 AM VARNISH FILTERER [facility] ABO Rh B POS 08/19/2020 7:03 AM VARNISH FILTERER [facility] Blood Bank BLOOD SPECIMEN / Unknown Venipuncture / Unknown 08/19/2020 6:18 AM VARNISH FILTERER 08/19/2020 6:25 AM VARNISH FILTERER Dionte Comer MD LAB - BLOOD BANK ORD ERABLES [facility]OD [facility] LAB [address] [place] [address], [facility] [phone] documented in this encounter Visit Diagnoses Diagnosis Lymphadenopathy of head and neck region- Primary Tracheal mass Swelling, mass, 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 Hoarseness Dysphonia 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, mass, 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 Hoarseness Dysphonia Paralysis of right vocal cord documented in this encounter Admitting Diagnoses Diagnosis Tracheal mass Swelling, mass, 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 documented in this encounter Administered Medications Inactive Administered Medications - up to 3 most recent administrations Medication Order MAR Action Action Date Dose Rate Site 0.9% NaCl injection 1-10 mL 1-10 mL, Intracatheter, PRN, Other, peripheral line flush, Starting on [place] 08/18/20 at 1512, Until Josi 08/29/20 at 1230, Flush peripheral IV catheter with 1-10 mL of normal saline before and after medications and prn to clear blood from the line or to verify patency. 0.9% NaCl injection 3 mL 3 mL, Intracatheter, EVERY 8 HOURS, First dose on [place] 08/18/20 at 1545, Until Discontinued, Flush peripheral IV catheter with 3 mL of normal saline every 8 hours. $ Given 08/29/2020 5:30 AM VARNISH FILTERER 3 mL $ Given 08/28/2020 8:15 PM VARNISH FILTERER 3 mL $ Given 08/28/2020 1:21 PM VARNISH FILTERER 3 mL acetaminophen (TYLENOL) tablet 500 mg 500 mg, Oral, EVERY 6 HOURS, First dose (after last modification) on 08/24/20 at 1800, Until Discontinued $ Given 08/29/2020 5:29 AM VARNISH FILTERER 500 mg $ Given 08/28/2020 11:31 PM VARNISH FILTERER 500 mg $ Given 08/28/2020 5:21 PM VARNISH FILTERER 500 mg albuterol-ipratropium (DUO-NEB) nebulizer solution 3 mL 3 mL, Inhalation, EVERY 4 HOURS PRN, Shortness of Breath, Wheezing, Starting on Wed08/26/20 at 1138, Until Josi 08/29/20 at 1230 atorvastatin (LIPITOR) tablet 40 mg 40 mg, Oral, AT BEDTIME, First dose (after last modification) on 08/24/20 at 2100, Until Discontinued $ Given 08/28/2020 8:15 PM VARNISH FILTERER 40 mg $ Given 08/27/2020 8:53 PM VARNISH FILTERER 40 mg $ Given 08/26/2020 8:03 PM VARNISH FILTERER 40 mg bacitracin topical ointment PRN, Starting on Wed08/19/20 at 1524, Until Wed08/19/20 at 1553, Intra-op $ Given 08/19/2020 3:24 PM VARNISH FILTERER 1 packet Ope rative Site calcitriol (ROCALTROL) capsule 0.5 mcg 0.5 mcg, Oral, 2 TIMES DAILY, First dose (after last modification) on Wed08/21/20 at 2100, Until Discontinued, Administer via G-tube if possible $ Given 08/29/2020 9:05 AM VARNISH FILTERER 0.5 mcg $ Given 08/28/2020 8:19 PM VARNISH FILTERER 0.5 mcg $ Given 08/28/2020 8:50 AM VARNISH FILTERER 0.5 mcg calcium-vitamin D (OS-YANNICK 500 + D) 500-200 mg-unit tablet 2 tablet 2 tablet, Oral, 3 TIMES DAILY WITH MEALS, First dose (after last modification) on Wed08/25/20 at 1200, Until Discontinued $ Given 08/29/2020 9:05 AM VARNISH FILTERER 2 tablets $ Given 08/28/2020 5:21 PM VARNISH FILTERER 2 tablets $ Given 08/28/2020 12:09 PM VARNISH FILTERER 2 tablets clonazePAM (KlonoPIN) tablet 0.5 mg 0.5 mg, Oral, 2 TIMES DAILY, First dose (after last modification) on Wed08/24/20 at 2100, Until Discontinued $ Given 08/29/2020 9:05 AM VARNISH FILTERER 0.5 mg $ Given 08/28/2020 8:15 PM VARNISH FILTERER 0.5 mg $ Given 08/28/2020 8:50 AM VARNISH FILTERER 0.5 mg heparin injection 5,000 Units 5,000 Units, Subcutaneous, EVERY 8 HOURS, First dose on Wed08/20/20 at 0900, Until Discontinued $ Given 08/29/2020 5:30 AM VARNISH FILTERER 5,000 Units Right Arm $ Given 08/28/2020 10:30 PM VARNISH FILTERER 5,000 Units Right Arm $ Given 08/28/2020 1:19 PM VARNISH FILTERER 5,000 Units L eft Arm ibuprofen (MOTRIN) tablet 400 mg 400 mg, Oral, EVERY 6 HOURS PRN, Mild Pain, Starting on 08/24/20 at 1312, Until Josi 08/29/20 at 1230, Maximum allowable amount = 3200 mg / 24 hours. $ Given 08/24/2020 5:01 PM VARNISH FILTERER 400 m g levothyroxine (SYNTHROID) tablet 112 mcg 112 mcg, Oral, DAILY AT 0600, First dose (after last modification) on 08/25/20 at 0600, Until Discontinued, Take in the morning on an empty stomach. Do not give within 4 hours of antacids, iron or calcium supplements. $ Given 08/29/2020 5:29 AM VARNISH FILTERER 112 mcg $ Given 08/28/2020 5:36 AM VARNISH FILTERER 112 mcg $ Given 08/27/2020 6:30 AM VARNISH FILTERER 112 mcg lidocaine 1% - EPINEPHrine 1:100,000 injection PRN, Starting on 08/19/20 at 0849, Until 08/19/20 at 1514, Intra-op $ Given 08/19/2020 8:49 AM VARNISH FILTERER 6 mL melatonin tablet 3 mg 3 mg, Oral, EVERY EVENING, First dose (after last modification) on 08/24/20 at 1700, Until Discontinued $ Given 08/27/2020 4:03 PM VARNISH FILTERER 3 mg $ Given 08/26/2020 5:35 PM VARNISH FILTERER 3 mg $ Given 08/25/2020 6:17 PM VARNISH FILTERER 3 mg octreotide (SandoSTATIN) injection 100 mcg 100 mcg, Subcutaneous, 3 TIMES DAILY, First dose on 08/24/20 at 1700, Until Discontinued $ Given 08/29/2020 9:05 AM VARNISH FILTERER 100 mcg Abd Left Lower Quadrant $ Given 08/28/2020 8:16 PM VARNISH FILTERER 100 mcg Ri ght Arm $ Given 08/28/2020 1:19 PM VARNISH FILTERER 100 mcg Le ft Arm ondansetron (ZOFRAN) injection 4 mg 4 mg, Intravenous, EVERY 6 HOURS PRN, Nausea/Vomiting, Starting on 08/19/20 at 1654, Until Josi 08/29/20 at 1230, Administer over 2 to 5 minutes. $ Given 08/21/2020 5:36 PM VARNISH FILTERER 4 mg oxyCODONE (ROXICODONE) oral solution 5 mg 5 mg, Oral, EVERY 4 HOURS PRN, Severe Pain, Starting on 08/24/20 at 1312, Until Josi 08/29/20 at 1230 $ Given 08/29/2020 3:59 AM VARNISH FILTERER 5 mg $ Given 08/28/2020 4:15 PM VARNISH FILTERER 5 mg $ Given 08/28/2020 10:36 AM VARNISH FILTERER 5 mg pantoprazole EC (PROTONIX) tablet 40 mg 40 mg, Oral, DAILY, First dose on [facility] 08/29/20 at 0900, Until Discontinued, Do not crush, chew, or cut in half. $ Given 08/29/2020 9:05 AM VARNISH FILTERER 40 mg PARoxetine (PAXIL) tablet 40 mg 40 mg, Oral, DAILY, First dose (after last modification) on [place] 08/25/20 at 0900, Until Discontinued $ Given 08/29/2020 9:05 AM VARNISH FILTERER 40 mg $ Given 08/28/2020 8:50 AM VARNISH FILTERER 40 mg $ Given 08/27/2020 8:49 AM VARNISH FILTERER 40 mg polyethylene glycol 3350 (MIRALAX) packet 17 g 17 g, Oral, DAILY, First dose on [place] 08/25/20 at 0900, Until Discontinued, Mix in 8 ounces of water, juice, soda, coffee or tea prior to administration HOLD FOR BM IN LAST 48 HRS $ Given 08/29/2020 9:05 AM VARNISH FILTERER 17 g $ Given 08/27/2020 8:49 AM VARNISH FILTERER 17 g $ Given 08/26/2020 8:56 AM VARNISH FILTERER 17 g senna (SENOKOT) tablet 8.6 mg 8.6 mg, Oral, DAILY, First dose (after last modification) on [place] 08/25/20 at 0900, Until Discontinued $ Given 08/29/2020 9:05 AM VARNISH FILTERER 8.6 mg $ Given 08/27/2020 8:49 AM VARNISH FILTERER 8.6 mg $ Given 08/26/2020 8:56 AM VARNISH FILTERER 8.6 mg traZODone (DESYREL) tablet 50 mg 50 mg, Oral, AT BEDTIME, First dose (after last modification) on [facility] 08/24/20 at 2100, Until Discontinued $ Given 08/28/2020 8:15 PM VARNISH FILTERER 50 mg $ Given 08/27/2020 8:53 PM VARNISH FILTERER 50 mg $ Given 08/26/2020 8:03 PM VARNISH FILTERER 50 mg documented in this encounter Active and Recently Administered Medications Times are shown in VARNISH FILTERER. Scheduled Medication Order 08/27/2020 08/28/2020 08/29/2020 0.9% [...] RN)1321 ($ Given - Provider: Vincent Bird, RN)2014 ($ Given - Provider: Daiana Garcia RN) 0530 ($ Given - Provider: Daiana Garcia RN) acetaminophen (TYLENOL) tablet 500 mg 500 mg, Oral, EVERY 6 HOURS, First dose (after last modification) on [facility] 08/24/20 at 1800, Until Discontinued 43 (Not Administered - Provider: Daiana Garcia RN - Reason: Patient sleeping)0630 ($ Given - Provider: Daiana Garcia RN)1158 ($ Given - Provider: Christa Crawford RN)1752 ($ Given - Provider: Christa Crawford RN) 0028 ($ Given - Provider: Kathleen Bates RN)0536 ($ Given - Provider: Kathleen Bates RN)1209 ($ Given - Provider: Vincent Bird, RN)1721 ($ Given - Provider: Vincent Bird, RN)2331 ($ Given - Provider: Daiana Garcia RN) 0529 ($ Given - Provider: Daiana Garcia RN) atorvastatin (LIPITOR) tablet 40 mg 40 mg, Oral, AT BEDTIME, First dose (after last modification) on 08/24/20 at 2100, Until Discontinued 2052 ($ Given - Provider: Kathleen Bates RN) 2014 ($ Given - Provider: Daiana Garcia, RN) calcitriol (ROCALTROL) capsule 0.5 mcg 0.5 mcg, Oral, 2 TIMES DAILY, First dose (after last modification) on Wed08/21/20 at 2100, Until Discontinued, Administer via G-tube if possible 0849 ($ Given - Provider: Christa Crawford RN)2053 ($ Given - Provider: Kathleen Bates RN) 0850 ($ Given - Provider: Vincent Bird, RN)2018 ($ Given - Provider: Daiana Garcia, JOSY) 0905 ($ Given - Provider: Nader Ross, RN) calcium-vitamin D (OS-YANNICK 500 + D) 500-200 mg-unit tablet 2 tablet 2 tablet, Oral, 3 TIMES DAILY WITH MEALS, First dose (after last modification) on Wed08/25/20 at 1200, Until Discontinued 0849 ($ Given - Provider: Christa Crawford RN)1158 ($ Given - Provider: Christa Crawford RN)1752 ($ Given - Provider: Christa Crawford RN) 0850 ($ Given - Provider: Vincent Bird, JOSY)1209 ($ Given - Provider: Vincent Bird, RN)1721 [...] 0850 ($ Given - Provider: Vincent Bird, RN)2014 ($ Given - Provider: Daiana Garcia, JOSY) 0905 ($ Given - Provider: Nader Ross, JOSY) heparin injection 5,000 Units 5,000 Units, Subcutaneous, EVERY 8 HOURS, First dose on Wed08/20/20 at 0900, Until Discontinued 0630 ($ Given - Provider: Daiana Garcia, JOSY)1401 ($ Given - Provider: Christa Crawford RN)2053 ($ Given - Provider: Kathleen Bates RN) 0535 ($ Given - Provider: Kathleen Bates RN)1319 ($ Given - Provider: Vincent Bird, JOSY)2230 ($ Given - Provider: Daiana Garcia RN) 0530 ($ Given - Provider: Daiana Garcia RN) levothyroxine (SYNTHROID) tablet 112 mcg 112 mcg, [...] modification) on Wed08/24/20 at 1700, Until Discontinued 1603 ($ Given [...] Bird, RN)2016 ($ Given - Provider: Daiana Garcia, JOSY) 0905 ($ Given - Provider: Nader Ross RN) pantoprazole (PROTONIX) injection 40 mg (CANCELED) 40 [...] 40 mg, Oral, DAILY, First dose on [place] 08/29/20 at 0900, Until Discontinued, Do not [...] RN) 2014 ($ Given - Provider: Daiana Garcia, JOSY) PRN Medication Order 08/27/2020 08/28/2020 08/29/2020 0.9% [...] Garcia RN)1603 ($ Given - Provider: Christa Crawford RN)2245 ($ Given - Provider: Kathleen Bates RN) 1036 ($ Given - Provider: Vincent Bird, JOSY)1615 ($ Given - Provider: Vincent Bird, JOSY) 0359 ($ Given - Provider: Daiana Garcia RN) prochlorperazine (COMPAZINE) injection 10 mg 10 mg, Intravenous, EVERY 6 HOURS PRN, Nausea/Vomiting, Starting on 08/19/20 at 1654, Until Josi 08/29/20 at 1230, Max intravenous rate = 5 mg/min Linked Groups Order Group 1: SALINE LOCK, INSERT AND MAINTAIN (CANCELED) Routine, CONTINUOUS, Starting on 08/18/20 at 1515, Until Specified, New collection And [...] patency. documented in this encounter Care Teams Can Cleaner Relationship Specialty Start Date End Date Taniya Grimes MD [address] DIV OF [facility] [place] [address] PCP - General 07/01/20 05/10/22 Marylu Marie DO [address] DIV OF [facility] [place] [address] Resident - PCP Student Resident 06/26/20 01/11/22 documented as of this encounter
--- OUTSIDE RECORDS SUMMARY | 2024-07-23 07:26 | XMS_ITS | Encounter Summary ---
Author Organization [facility] Health Address [address] [place] [address] Care Team Providers Care Flue Tile Press Operator Name Role Phone Marylu Marie DO Unavailable [phone] Taniya Grimes MD Primary Care Provider [phone] Encounter Details Date Type Department Care Team (Latest Contact Info) Description 08/17/2020 Travel Social History Tobacco Use Types Packs/Day [...] COVID-19? No / Unsure 08/17/2020 11:32 AM AIR CONDITIONING ENGINEER documented as of this encounter Functional [...] No 08/01/2020 documented as of this encounter Plan of Treatment Upcoming Encounters Date Type Department Care Team (Late Contact Info) Description 07/25/2024 10:00 AM AIR CONDITIONING ENGINEER Office Visit [facility] - Endocrinology [address] [place] [phone] Yosi Bustamante MD [address] [place] [address] [address] [place] [address] 07/26/2024 10:00 AM AIR CONDITIONING ENGINEER Appointment [facility] [address] [place] [address] Neri Delgado MD [address] [place] [phone] 07/26/2024 10:00 AM AIR CONDITIONING ENGINEER Office Visit [facility] - ENT [address] [place] [phone] Myra Farmer, SEATER ASSEMBLER [address] [place] [address] [address]L [place] [phone] 07/26/2024 11:15 AM AIR CONDITIONING ENGINEER Office Visit [facility] - ENT [address] [place] [phone] Neri Delgado MD [address] [place] [phone] 08/02/2024 2:20 PM AIR CONDITIONING ENGINEER Appointment [facility] [address] [place] [phone] 08/02/2024 3:00 PM AIR CONDITIONING ENGINEER Office Visit [facility] - Hematology/Oncology [address] [place] [phone] Remi Beckett MD [address] [place] [phone] 08/18/2024 1:45 PM AIR CONDITIONING ENGINEER Office Visit [facility] - ENT [address] [place] [address] Neri Delgado MD [address] [place] [phone] documented as of this encounter Visit Diagnoses Not on filedocumented in this encounter Care Teams Flue Tile Press Operator Relationship Specialty Start Date End Date Taniya Grimes MD [address] [place] [address] [address] DIV OF [facility] [place] [phone] PCP - General 07/01/20 05/10/22 Marylu Marie DO [address] [place] [address] [address] [address] Resident - PCP Student Resident 06/26/20 01/11/22 documented as of this encounter
--- OUTSIDE RECORDS SUMMARY | 2024-07-23 07:26 | XMS_ITS | Encounter Summary ---
Author Organization [facility] Address [address] [address] Care Team Providers Care Claims Adjuster Name Role Phone Marylu Marie DO Unavailable [phone] Taniya Grimes MD Primary Care Provider Reason for Visit * Auth/Cert Specialty Diagnoses / Procedures Referred By Contac t Referred To Contact Diagnoses 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 TRACHEAL MASS, HOARSENESS, RIGHT VOCAL CORD PARALYSIS, LYMPHADENECTOMY HEAD AND NECK Procedures LARYNGOSCOPY WITH MICROSCOPE DISSECTION NECK EXCISION/RESECTION/REPAIR TRACHEA Referral ID Status Reason Start Date Expiration Date Visits Re quested Visits Authorized [id number] 1 1 Encounter Details Date Type Department Care Team (Late st Contact Info) Description 08/19/2020 7:33 AM AUTOMATIC MOUNTER Anesthesia Event [facility] [address] [place] [address] Unruly Parker MD [facility] [address] [facility] [place] [address] Anesthesia Record Procedure Summary Procedure Name Responsible Anesthesiologist Anesthesia Start Time Anesthesia Stop Time DIRECT LARYNGOSCOPY WITH BIOPSY (Mouth) Unruly Parker MD 08/19/20 0733 08/19/20 1600 Events Date Time Event Comment 08/19/2020 0718 0733 Pt In Room 0733 An Start 0733 An Start Data 0733 Quick Note Pt c/o bad pain to lower back, hip and down leg. Pt voices this is an ongoing problem. Winces with moving self over to OR table. Addl Fentanyl given. Propped pt's legs up on pillows to pt's satisfaction once over to OR table. 0735 Anes Timeout 0736 PT Reassessment 0736 Induction 0738 Timeout Anesthesia part icipated in timeout at the time documented in the record by nursing. 0745 An Intubation 0800 Anes Ready 0832 Time Out Anesthesia part icipated in timeout at the time documented in the record by nursing 0834 Proc Start 1033 Quick Note Surgeon leaning on RUE BP cuff. She acknowledged this. 1041 Quick Note Valsalva, per s urgeon request 1044 Quick Note Valsalva per mazariegos rgeon's request 1047 Quick Note Valsalva per mazariegos rgeon's request 1205 Quick Note Ezio hugger tur kandy down to medium 1208 Quick Note Sodalime change d out. 1224 Quick Note Surgeons switch ing out, currently a pause in surgical stimulation. Ezio hugger turned off since temp 38 1236 Quick Note Surgeon request ed ETT cuff deflated for suturing around tracheal area. 1238 Quick Note ETT cuff reinfl ated as instructed by surgeon. 1253 Quick Note Surgeon's have accessed trachea with #6 armored ETT. First deflated original ETT cuff, pulled back to surgeon's command, new ETT inserted into tracheal incision. New ETT cuff inflated, +EtCO2. Old ETT removed from Pt's mouth. 1259 Quick Note Surgeons workin g directly in the airway, taking ETT/trach in and out frequently. 1321 Quick Note Surgeon request s paralytic for remainder of case. Estimating 1.75hrs. 1328 Quick Note Roho pillow def lated per surgeon's request 1410 An Intubation 1451 Quick Note Valsalva per mazariegos rgeon's request. 1534 Proc Stop 1534 An Emergence 1544 Extubation 1549 an stop data 1549 Pt out of Room 1549 ANPTO2 1600 An Stop Meds Name Total fentaNYL 100 mcg/2ml injection 200 mcg lidocaine PF 2% 100 mg propofol 200mg/20mL injection 150 mg succinylcholine 20 mg/mL injection 100 m g rocuronium 50 mg/5 mL injection 105 mg phenylephrine 100 mcg/mL injection 600 m cg ondansetron 4mg/2mL injection 8 mg dexamethasone 10 mg/ml PF injection 4 mg hydromorphone 2 mg/10mL prefilled syring e 3 mg glycopyrrolate 0.4 mg/2mL injection 1.2 mg ceFAZolin (ANCEF) syringe 2,000 mg 4 g phenylephrine 20 mg in 250 mL 1.86 mg sugammadex 200 mg/2mL injection 280 mg famotidine 20 mg/2mL injection 20 mg NS (0.9% NaCl) 1,000 mL LR (Lactated ringers) 2,000 mL * Agents Name Insp. N2O Exp. Sevoflurane Exp. N2O O2 Air Insp. Sevoflurane N2O * Blood No blood administrations on file. Lines, Drains, and Airways Type Details Placement Removal Peripheral IV Date: 08/19/20; Time : 0619; Orientation: Left; Placed By: JOSY Buchanan; Tolerance: Well 08/19/20 0619 by Chanel Johnston RN 08/25/20 1640 by Krissy Mendoza RN ETT Date: 08/19/20; Time : 0745; Placed By: SOCO Bran; Vent: easy mask; Induction: Standard IV; Blade Type: Other (comments); Laryngoscopy View: Grade 2 (partial cords); Placement: Oral; Tube Type: Cuffed-inflated; Tube Size(mm): 6 MM; Depth of Insertion: 24 CM; Measured From: lips; Attempts: 1; Cuff Infated: Air; Verified By: Direct visualization, CO2 Monitor 08/19/20 0745 by Norma Santana APRN-CRNA 08/19/20 1423 by Norma Santana APRN-CRNA Urethral Catheter 08/19/20; 0750; Sera Holley RN; Temperature probe; No; 16; 10 mL; Yes, Seal Intact; 08/19/20; 1540; Per protocol; Sangita Mccall RN 08/19/20 0750 by Wilma Borrego RN 08/19/20 1540 by Sangita Barrow RN ETT Date: 08/19/20; Time : 1410; Placed By: SOCO Bran; Vent: mask not attempted; Induction: Other (Comments); Blade Type: Young; Blade Size: 2; Laryngoscopy View: Grade 2 (partial cords); Intubation Adjuncts: Stylet; Tube: Endotracheal Tube; Placement: Oral; Tube Type: Cuffed-inflated; Tube Size(mm): 8 MM; Depth of Insertion: 23 CM; Measured From: teeth; Attempts: 1; Cuff Infated: Air; Verified By: Direct visualization, CO2 Monitor 08/19/20 1410 by oNrma Santana, JEWELRY SALES-FABRIC WORKER FITTER 08/19/20 1544 by Norma Santana, JEWELRY SALES-FABRIC WORKER FITTER Drain 08/19/20; 1507; Ana pierre MD; 1; Channel; Bulb; 19 Fr.; Bard; [id number]; [id number]; Right; Neck; General Anesthesia; 08/28/20; 1611; ENT 08/19/20 1507 by Sangita Barrow RN 08/28/20 1611 by Vincent Bird, JOSY Drain 08/19/20; 1507; Ana pierre MD; 2; Channel; Bulb; 19 Fr.; Bard; [id number]; [id number]; Left; Neck; General Anesthesia; 08/29/20; 1133 08/19/20 1507 by Sangita Barrow RN 08/29/20 1133 by Nader Ross RN Drain 08/19/20; 1508; Ana pierre MD; 3; Open; None; 0.25in; [facility]; [place]; Other (Comment) (Central); Neck; General Anesthesia; 08/28/20; 1611; ENT 08/19/20 1508 by Sangita Barrow RN 08/28/20 1611 by Vincent Bird, RN Procedural Site (Incision) 08/19/20; 1525; Neck; Incision closed with sutures, covered with bacitracin ointment; 08/29/20; 1730 08/19/20 1525 by Sangita Barrow RN 08/29/20 1730 by Generic, Auto Release Gastric Tube 08/19/20; 1530; Ana pierre MD; NGT; Nostril/Nare; 8; General Anesthesia; 08/24/20; 0913; ENT 08/19/20 1530 by Sangita Barrow RN 08/24/20 0913 by Libia Yanez RN documented in this encounter Social History [...] Recorded PHQ2 TOTAL SCORE 1 11/25/2022 [facility] - Occupational [...] No 08/01/2020 documented as of this encounter Progress Notes * Junior Booth DO - 08/20/2020 8:39 AM CST ANESTHESIA POSTOP EVALUATION NOTE Procedure: DIRECT LARYNGOSCOPY WITH BIOPSY (N/A Mouth) TOTAL THYROIDECTOMY WITH CENTRAL NECK DISSECTION, RIGHT AND LEFT NECK DISSECTIONS (N/A Neck) TRACHEAL TUMOR RESECTION (N/A Neck) Brisa Hogan is a 60 year old female Patient Vitals for the past 6 hrs: BP Temp Pulse Resp SpO2 Pain Rating Score #1 Pain Scale/Observation 08/20/20 0300 126/83 -- 70 13 97 % -- -- 08/20/20 0330 -- -- -- -- -- 8 N 08/20/20 0400 135/76 97.7 ??F (36.5 ??C) 75 15 96 % 0 N 08/20/20 0423 -- -- -- -- -- 1 N 08/20/20 0500 147/74 -- 75 11 95 % -- -- 08/20/20 0600 122/72 -- 72 14 94 % 0 N 08/20/20 0700 127/75 -- 77 12 95 % -- -- Anesthesia Type: general ETT Pre-op Diagnosis Codes: * Tracheal mass [J39.8] * Hoarseness [R49.0] * Paralysis of right vocal cord [J38.01] Mental Status: awake, alert and oriented Respiratory Function: natural Cardiac Function: stable Postop Pain: adequate Postop Hydration: adequate Postop Nausea: none Assessment: no apparent anesthetic complications, patient tolerated procedure well and no evidence of recall Patient Disposition: Release from Anesthesia Care COMPLICATIONS: No complications documented. MATIC MOUNTER * Maryjane Chapman MD - 08/19/2020 7:43 PM CST ANESTHESIA POSTOP EVALUATION NOTE Procedure: DIRECT LARYNGOSCOPY WITH BIOPSY (N/A Mouth) TOTAL THYROIDECTOMY WITH CENTRAL NECK DISSECTION, RIGHT AND LEFT NECK DISSECTIONS (N/A Neck) TRACHEAL TUMOR RESECTION (N/A Neck) Brisa Hogan is a 60 year old female Patient Vitals for the past 6 hrs: BP Temp Pulse Resp SpO2 Pain Scale/Observation 08/19/20 1555 143/74 (!) 100.3 ??F (37.9 ??C) 86 12 96 % -- 08/19/20 1600 150/78 -- 85 9 96 % -- 08/19/20 1605 136/76 -- 84 13 92 % -- 08/19/20 1610 135/71 99.8 ??F (37.7 ??C) 85 12 94 % -- 08/19/20 1615 138/72 -- 84 13 94 % -- 08/19/20 1620 152/76 -- 85 13 95 % -- 08/19/20 1630 164/83 -- 87 13 94 % -- 08/19/20 1640 159/81 -- 96 11 91 % -- 08/19/20 1650 173/81 -- 92 14 91 % -- 08/19/20 1700 157/72 -- 90 14 92 % -- 08/19/20 1730 155/81 -- 87 13 92 % -- 08/19/20 1750 -- -- -- -- -- CPOT 08/19/20 1800 166/79 98.6 ??F (37 ??C) 101 19 93 % -- 08/19/20 1900 136/63 -- 75 12 95 % -- Anesthesia Type: general ETT Pre-op Diagnosis Codes: * Tracheal mass [J39.8] * Hoarseness [R49.0] * Paralysis of right vocal cord [J38.01] Mental Status: arousable Neuro Status: No numbness, tingling or visual disturbances Respiratory Function: natural Cardiac Function: stable Postop Pain: acceptable to the patient Postop Hydration: adequate Postop Nausea: none Assessment: no apparent anesthetic complications, patient tolerated procedure well and no evidence of recall Patient Disposition: Follow Up Needed COMPLICATIONS: No complications documented. MATIC MOUNTER * Unruly Parker MD - 08/01/2020 3:33 PM CST ANESTHESIA PREOPERATIVE EVALUATION NOTE Procedure: LARYNGOSCOPY WITH MICROSCOPE (N/A Mouth) DISSECTION NECK (N/A Neck) EXCISION/RESECTION/REPAIR TRACHEA (N/A Neck) NPO status: *Except Oral meds with H2O (08/01/2020 1:44 PM) Last Solids/Dairy: 2000 (08/01/2020 1:44 PM) Last Clear Liquids: 1100 (08/01/2020 1:44 PM) Vitals: No data found. ANESTHESIA PRE-EVALUATION NOTE History of Present Illness: 60 year old female recently found to have a right thyroid nodule requiring FNA for further evaluation. Today patient presents for scheduled image guided biopsy and related procedures. Patient seen inPAT clinic as well for evaluation for scheduled procedure. PMH of: ??? Anxiety and depression ? Degenerative disc disease, lumbar ? HLD (hyperlipidemia) ? Osteoarthritis of one hip, left ? Psoriasis Scheduled for above procedure with Dr. Comer on 08/19/20. Covid test scheduled 08/15/20 prior to procedure. Previous Airway Management: No Hx Available Physical Exam: Orientation X3 Airway/Mallampati Score: II Mouth Opening Distance: 2.5 fingerwidths Neck ROM: full TM Distance: > 3 FB Teeth: normal and caps/crowns (missing one upper molar) Heart: normal - S1 S2 Lungs: clear to ausculation bilaterally Review of Systems: History of anesthetic complications: No Malignant Hyperthermia: No GERD: No Poor Exercise Tolerance: No Recent Chest Pain: No Shortness of Breath: No AICD/Pacemaker: No Renal Disease: No Diagnostic Tests: Lab(s) reviewed: Yes. Other Findings: CT neck w/ con IMPRESSION: ?? 1. A mildly enlarged left [...] without and with contrast to further evaluate. ANESTHESIA PLAN ASA Score: 2 NPO Status: Patient instructed to be NPO after midnight Anesthesia Plan: general and general ETT Planned Induction: intravenous Planned Postop Destination: PACU Anesthetic plan was discussed with: patient Anesthetic Plan discussion was: Consented The patient's procedural Anesthetic Plan was discussed with the FABRIC WORKER FITTER and resident. BMI, Height, Weight Tobacco History Estimated body mass index is 29.27 kg/m?? as calculated from the following: Height as of an earlier encounter on 08/01/20: 1.549 m (5' 1). Weight as of an earlier encounter on 08/01/20: 70.3 kg (154 lb 14.4 oz). Social History Tobacco Use Smoking Status Light Tobacco Smoker ??? Packs/day: 0.25 ??? Types: Cigarettes ??? Start date: 07/22/1973 Smokeless Tobacco Never Used Alcohol History Drug History Social History Substance and Sexual Activity Alcohol Use No Social History Substance and Sexual Activity Drug Use Not Currently ??? Types: Cocaine, Marijuana Comment: Outpatient Medications: Inpatient Medications: No outpatient medications have been marked as taking for the 08/01/20 encounter (Hospital Encounter)with [facility]. No current facility-administered medications for this encounter. Facility-Administered Medications Ordered in Other Encounters Medication Dose Last Admin ??? lidocaine PF 1.5 mL at 08/01/20 1447 Allergies: No Known Allergies Relevant Problems No relevant active problems Problem List: Patient Active Problem List Diagnosis Date Noted ??? Complete paralysis of right vocal cord 07/24/2020 Priority: Not Prioritized ??? Hoarseness 07/24/2020 Priority: Not Prioritized ??? 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 Lymphadenopathy of head and neck region 07/24/2020 Priority: Not Prioritized ??? Psoriasis Priority: Not Prioritized ??? High cholesterol 09/06/2019 Priority: Not Prioritized ??? Primary osteoarthritis of left hip 12/07/2018 Priority: Not Prioritized ??? Nicotine dependence 11/19/2016 Priority: Not Prioritized ??? Psychophysiologic insomnia 11/19/2016 ??? Chronic fatigue 11/19/2016 ??? Snoring 11/19/2016 ??? Obsessive-compulsive disorder 11/19/2016 counting ??? Headache 11/19/2016 Medical History: Past Medical History: Diagnosis Date ??? Anxiety and depression ??? Degenerative disc disease, lumbar ??? 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 HLD (hyperlipidemia) ??? Osteoarthritis of one hip, left ??? Psoriasis Surgical History: Past Surgical History: Procedure Laterality Date ??? Bilateral Tubal Ligation (BTL) ??? Section ??? ENDOSCOPY, COLON, DIAGNOSTIC no polyp ??? Polypectomy cervical Lab Results: No results found for requested labs within last 120 days. Recent Labs Result Component Current Result eGFR >60 (07/24/2020) Anesthesia Inpatient Preoperative Evaluation Summary: Perioperative Cardiac Risk Index: Stratification based on 2014 ACC/AHA Guidelines Perioperative risk of a Major Adverse Cardiac Event (MACE). Add one point (0-6) for each positive RCRI (Revised Cardiac Risk Index) Is the surgery high-risk? no Intraperitoneal Intrathoracic Major vascular (includes suprainguinal AVF) Neurosurgical spine or craniotomy History of ischemic heart disease? no Recent VT with 60 days = very high risk of MACE, requires cardiac consultation History of VT > 60 days History of positive stress test Current chest pain considered due to myocardial ischemia Use of nitrate therapy ECG with pathologic Q waves History of congestive heart failure? no Pulmonary edema, bilateral rales or S3 gallop Paroxysmal nocturnal dyspnea CXR showing pulmonary vascular congestion History of cerebrovascular disease? no Prior TIA or stroke Carotid bruit on exam? no Copy and paste any recent carotid duplex results here Insulin-dependent Diabetes? no Preoperative creatinine > 2 mg/dl? no RCRI correlation with MACE (www.mdcalc.com/holzcpb-muwtimg-tsuz-bshew-[email or web address]-pijphxnjp-risk, originally validated by Barbara Sequeira Circulation. 1999;100:7428-1630) 0 Points - 0.4% risk 1 Point - 0.9% risk 2 Points - 6.6% risk 3 or more Points - 11% risk This patient has RCRI of 0 and correlated risk of MACE = 0.4 % If MACE < 1%, no further testing [...] with attending, as further workup may beindicated. Consults: Cardiology / medicine risk stratification requested: no Other consults pending: no CIEDs (cardiovascular implantable electronic device): Patient does not have any CIEDs Information needed: (orthopedic dentist, mode, indication for CIED, battery life, magnet function, PM dependence): Call PAT director or switchboard mechanic to discuss any patient with a CIED Timing of interrogation should be: Within 1 year for PM // Within 6 months for AICD Most recent EKG and Additional Cardiac Testing: EKG: (n/a) EKG needed within 1 month if known CAD EKG needed within 3 months if: (based upon 2014 ACC / AHA guidelines) - ASA > 2 OR any RCRI (including high risk surgery) Echo: (n/a) Anticoagulants: Patient is not currently receiving anti-coagulant nor anti-platelet agents: Previous Transfusions / Blood Products: Procedure does not represent a high risk for significant blood loss. Previous blood transfusion? no If high risk procedure or risk of blood loss > 250 ml, then order: - 1st Type and Screen in PAT AND 2nd Type and Screen for DOS -OR- - If patient is not seen in PAT then order a T&S for DOS (We will need an additional re-type which blood bank will automatically send to [facility]. [facility] requires a 2nd confirmatory T&S before releasing crossmatched blood) Additional Laboratory Testing: Labs ordered for DOS: - CBC w/o diff if ASA >2 OR expected blood loss >250 OR previously abnormal - BMP is ASA >2 OR taking diuretics, K+ supplements, GUSTABO-I, ARBs -OR- any RCRI (including high risk procedure) - for patients with DM, refer to PCP or digital content manager for BG >200 - CMP (instead of BMP) for patient with chronic liver disease or previously abnormal -PT/ PTT/ INR if recent use of anticoagulants (VKAs, DTIs, fXa-I) OR vascular procedures Additional testing needed on DOS as below: - EPOC blood glucose on DOS - EPOC whole blood K+ for patient with ESRD or poorly controlled K+ - EPOC Urine HCG if female patient of reproductive age SUMMARY: Brisa Hogan is a 60 year old female presenting for LARYNGOSCOPY WITH MICROSCOPE (N/A Mouth) DISSECTION NECK (N/A Neck) EXCISION/RESECTION/REPAIR TRACHEA (N/A Neck). This patient is classified as ASA 2, and has RCRI score of 0, which correlates with a MACE risk of 0.4%. Inpatient preoperative evaluation will be complete including review of all pending consults, CIEDs,review of labs ordered in PAT. (Please note that the evaluation is NOT complete until all the abovehave been reviewed) The patient is medically optimized for this procedure. According to the 2014 ACC/ AHA guidelines, patient does not need further workup. Physical exam and preoperative plan to be discussed with attending day of surgery. Final clearance pending evaluation by the attending Anesthesiologist. Addendum CBC and BMP reviewed. Additionally, I note labs to be within normal limits. PAT evaluation is now complee. Adair Cabrera DO Anesthesiology and Critical Care 08/01/2020 3:33 PM MATIC MOUNTER documented in this encounter Procedure Notes * Unruly Parker MD - 08/19/2020 2:20 PM CSTAssociated Order(s): ETT Placement Endotracheal Tube Placement: Patient Location: OR. Intubation Event Date/Time: 08/19/2020 2:10 PM Procedure: intubation ([id number]). Procedure Section: Sedation: under general anesthesia. Indications for Airway Management: anesthesia Procedure pretreatments used? No Induction: other - please comment Patient Position: supine Mask Ventilation: not attempted. Blade Type: Young [...] ETT in proper place. Tube secured with: adhesive tape. Dentition unchanged? Yes Difficult Airway? No. Procedure Start Time: 08/19/2020 2:10 PM. Staff Section Anesthesia Provider: Norma Santana APRN-FABRIC WORKER FITTER, Performed the procedure Provider #1: Unruly Parker MD. Additional Comments: reintubated orally after having had ETT in tracheal incision. Under continuousgeneral anesthesia. MATIC MOUNTER * Unruly Parker MD - 08/19/2020 8:34 AM CSTAssociated Order(s): ETT Placement Endotracheal Tube Placement: Patient Location: OR. Intubation Event Date/Time: 08/19/2020 7:45 AM Procedure: intubation ([id number]). Procedure Section: Sedation: under general anesthesia. Indications for Airway Management: anesthesia Procedure pretreatments used? No Induction: standard IV Patient Position: sniffing Mask Ventilation: easy. Blade Type: other - [...] ETT in proper place. Tube secured with: adhesive tape. Dentition unchanged? Yes Difficult Airway? No. Procedure Start Time: 08/19/2020 7:45 AM. Staff Section Anesthesia Provider: Norma Santana APRN-CRNA Provider #1: Unruly Parker MD. Additional Comments: IV induction, then Dr. Comer did largyngoscopy and placed #6 nerve monitoring ETT after using LTA, ETT secured with pink tape and tegaderms. Surgeon placed tegaderms over eyes. . MATIC MOUNTER documented in this encounter Miscellaneous Notes * Anesthesia Transfer of Care - Norma Santana APRN-CRNA - 08/19/2020 4:00 PM CST ANESTHESIA TRANSFER OF CARE NOTE Today's Date: 08/19/2020 Date of : 1960 Patient: Brisa Hogan Procedure(s): DIRECT LARYNGOSCOPY WITH BIOPSY TOTAL THYROIDECTOMY WITH CENTRAL NECK DISSECTION, RIGHT AND LEFT NECK DISSECTIONS TRACHEAL TUMOR RESECTION Surgeon(s): Primary: Dionte Comer MD Resident - Assisting: Isa Jimenez MD Preop Diagnosis: Pre-op Diagnois: * Tracheal mass [J39.8] * Hoarseness [R49.0] * Paralysis of right vocal cord [J38.01] Pre-op Meds (From admission, onward) Start Stop Status Route Frequency Ordered 08/18/20 151 0.9% NaCl infusion rate and volume 08/19 1510 Verified IV ONCE PRN 08/18/20 1513 08/18/20 1512 0.9% NaCl injection 1-10 mL -- Dispensed IK PRN 08/18/20 1513 08/18/20 1545 0.9% NaCl injection 3 mL -- Dispensed IK EVERY 8 HOURS 08/18/20 151 Post-op Diagnosis: * Tracheal mass [J39.8] * Hoarseness [R49.0] * Paralysis of right vocal cord [J38.01] . No Known Allergies Vitals: No data found. Lines, Drains, and Airways Type Details Placement Removal Peripheral IV Date: 08/19/20; Time: 06; Orientation: Left; Location: Antecubital; Placed By: JOSY Buchanan; Gauge: 20 Gauge; Tolerance: Well 08/19/20 0619 by Chanel Johnston RN ETT Date: 08/19/20; Time: 0745; Placed By: SOCO Bran; Vent: easy mask; Induction: Standard IV; Blade Type: Other (comments); Laryngoscopy View: Grade 2 (partial cords); Placement: Oral; Tube Type: Cuffed-inflated; Tube Size(mm): 6 MM; Depth of Insertion: 24 CM; Measured From: lips;Attempts: 1; Cuff Infated: Air; Verified By: Direct visualization, CO2 Monitor 08/19/20 0745 by Norma Santana APRN-CRNA 08/19/20 1423 by Norma Santana APRN-CRNA ETT Date: 08/19/20; Time: 1410; Placed By: SOCO Bran; Vent: mask not attempted; Induction: Other (Comments); Blade Type: Young; Blade Size: 2; Laryngoscopy View: Grade 2 (partial cords); Intubation Adjuncts: Stylet; Tube: Endotracheal Tube; Placement: Oral; Tube Type: Cuffed-inflated; Tube Size(mm): 8 MM; Depth of Insertion: 23 CM; Measured From: teeth; Attempts: 1; Cuff Infated: Air; Verified By: Direct visualization, CO2 Monitor 08/19/20 1410 by Norma Santana APRN-FABRIC WORKER FITTER 08/19/20 1544 by Norma Santana APRN-CRNA Drain 08/19/20; 1507; Ana Comer MD; 1; Channel; Bulb; 19 Fr.; Bard; [id number]; [id number]; Right; Neck; General Anesthesia 08/19/20 1507 by Sangita Mccall RN Drain 08/19/20; 1507; Ana Comer MD; 2; Channel; Bulb; 19 Fr.; Bard; [id number]; [id number]; Left; Neck; General Anesthesia 08/19/20 1507 by Sangita Mccall RN Drain 08/19/20; 1508; Ana Comer MD; 3; Open; None; 0.25in; [facility]; [place]; Other (Comment) (Central); Neck; General Anesthesia 08/19/20 1508 by Sangita Mccall RN Gastric Tube 08/19/20; 1530; Ana Comer MD; NGT; Nostril/Nare; 8; General Anesthesia 08/19/20 1530 by Sangita Mccall RN Intraprocedure I/O Totals Intake LR (Lactated ringers) 2000.00 mL NS (0.9% NaCl) 1000.00 mL I.V. 1900 mL Total Intake 4900 mL Output Urine 1410 mL Estimated Blood Loss 135 mL Total Output 1545 mL Net Net Volume 3355 mL Patient Transfer Location: PACU Transport Airway: [...] understanding of report from the receiving PACUteam. SOCO Bran MATIC MOUNTER documented in this encounter Plan of Treatment Upcoming Encounters Date Type Department Care Team (Late st Contact Info) Description 07/25/2024 10:00 AM AUTOMATIC MOUNTER Office Visit [facility] - Endocrinology [address] [place] [address] Yosi Bustamante MD [address] [place] [address] [place] [address] 07/26/2024 10:00 AM AUTOMATIC MOUNTER Appointment [facility] [address] [place] [phone] Neri Delgado MD [address] [place] [id number] 07/26/2024 10:00 AM AUTOMATIC MOUNTER Office Visit [facility] - ENT [address] [place] [phone] Myra Farmer, DEAF INTERPRETER [address] [place] [address] [place] [address] 07/26/2024 11:15 AM AUTOMATIC MOUNTER Office Visit [facility] - ENT [address] [place] [phone] Neri Delgado MD [address] [place] [phone] 08/02/2024 2:20 PM AUTOMATIC MOUNTER Appointment [facility] [address] [place] [address] 08/02/2024 3:00 PM AUTOMATIC MOUNTER Office Visit [facility] - Hematology/Oncology [address] [place] [phone] Remi Beckett MD [address] [place] [phone] 08/18/2024 1:45 PM AUTOMATIC MOUNTER Office Visit [facility] - ENT [address] [place] [phone] Neri Delgado MD [address] [place] [phone] documented as of this encounter Procedures Procedure Name Priority Date/Time Associated Diagnosis Comments ENDOTRACHEAL TUBE NOTE Routine 08/19/2020 2:20 PM AUTOMATIC MOUNTER ENDOTRACHEAL TUBE NOTE Routine 08/19/2020 8:34 AM AUTOMATIC MOUNTER documented in this encounter Results * ETT LINE PERFORMABLE (08/19/2020 2:20 PM AUTOMATIC MOUNTER) Narrative Unruly Parker MD - 08/19/2020 2:20 PM AUTOMATIC MOUNTER Unruly Parker MD ? 08/27/2020 ??7:46 AM Endotracheal Tube Placement: ? Patient Location: OR. Intubation Event Date/Time: ??08/19/2020 2:10 PM Procedure: intubation (95083). Procedure Section: ?? Sedation: under general anesthesia. [...] Staff Section ?? Anesthesia Provider: Norma Santana APRN-FABRIC WORKER FITTER, Performed the procedure Provider #1: Unruly Parker MD. Additional Comments: reintubated orally after having had ETT in tracheal incision. Under continuous general anesthesia. Unruly Parker MD GENERAL ANESTHESIA O RDERABLES * ETT LINE PERFORMABLE (08/19/2020 8:34 AM AUTOMATIC MOUNTER) Narrative Unruly Parker MD - 08/19/2020 8:34 AM AUTOMATIC MOUNTER Unruly Parker MD ? 08/27/2020 ??7:46 AM Endotracheal Tube Placement: ? Patient Location: OR. Intubation Event Date/Time: ??08/19/2020 7:45 AM Procedure: intubation (24990). Procedure Section: ?? Sedation: under general anesthesia. [...] Staff Section ?? Anesthesia Provider: Norma Santana APRN-FABRIC WORKER FITTER Provider #1: Unruly Parker MD. Additional Comments: IV induction, then Dr. Comer did largyngoscopy and placed #6 nerve monitoring ETT after using LTA, ETT secured with pink tape and tegaderms. Surgeon placed tegaderms over eyes. . Unruly Parker MD GENERAL ANESTHESIA O RDERABLES documented in this encounter Visit Diagnoses Not on filedocumented in this encounter Administered Medications Inactive Administered Medications - up to 3 most recent administrations Medication Order MAR Action Action Date Dose Rate Site 0.9% NaCl infusion Intravenous, CONTINUOUS PRN, Starting on Wed08/19/20 at 0800, Until Wed08/19/20 at 1600, Anesthesia Intra-op $ New Bag/Syringe 08/19/2020 8:00 AM AUTOMATIC MOUNTER ceFAZolin (ANCEF) syringe 2,000 mg 2,000 mg (2 g), Intravenous, PRE-OP MULTIPLE, Starting on Wed08/19/20 at 0545, Until Wed08/19/20 at 1514, Administer 30 minutes prior to surgical incision. Administer over 3-5 minutes., Indication for anti-infective therapy: Surgical prophylaxis, Pre-op $ Given 08/19/2020 12:00 PM AUTOMATIC MOUNTER 2 g $ Given 08/19/2020 8:00 AM AUTOMATIC MOUNTER 2 g Dexamethasone Sod Phosphate PF injection Intravenous, PRN, Starting on Wed08/19/20 at 0846, Until Wed08/19/20 at 1600, Anesthesia Intra-op $ Given 08/19/2020 8:46 AM AUTOMATIC MOUNTER 4 mg famotidine (PEPCID) injection PRN, Starting on Wed08/19/20 at 1531, Until Wed08/19/20 at 1600, Anesthesia Intra-op $ Given 08/19/2020 3:31 PM AUTOMATIC MOUNTER 20 mg fentaNYL (PF) (SUBLIMAZE) injection Intravenous, PRN, Starting on Wed08/19/20 at 0728, Until Wed08/19/20 at 1600, Anesthesia Intra-op $ Given 08/19/2020 7:33 AM AUTOMATIC MOUNTER 100 mcg $ Given 08/19/2020 7:28 AM AUTOMATIC MOUNTER 100 mcg glycopyrrolate (ROBINUL) injection Intravenous, PRN, Starting on Wed08/19/20 at 0846, Until Wed08/19/20 at 1600, Anesthesia Intra-op $ Given 08/19/2020 9:23 AM AUTOMATIC MOUNTER 0.4 mg $ Given 08/19/2020 8:46 AM AUTOMATIC MOUNTER 0.4 mg $ Given 08/19/2020 8:09 AM AUTOMATIC MOUNTER 0.4 mg HYDROmorphone HCl-NaCl 2-0.9 MG/10ML-% SOSY Intravenous, PRN, Starting on Wed08/19/20 at 0950, Until Wed08/19/20 at 1600, Anesthesia Intra-op $ Given 08/19/2020 2:54 PM AUTOMATIC MOUNTER 1 mg $ Given 08/19/2020 1:21 PM AUTOMATIC MOUNTER 0.5 mg $ Given 08/19/2020 12:39 PM AUTOMATIC MOUNTER 0.5 mg lactated ringers infusion Intravenous, CONTINUOUS PRN, Starting on Wed08/19/20 at 0728, Until Wed08/19/20 at 1600, Anesthesia Intra-op $ New Bag/Syringe 08/19/2020 3:46 PM AUTOMATIC MOUNTER $ New Bag/Syringe 08/19/2020 8:05 AM AUTOMATIC MOUNTER $ New Bag/Syringe 08/19/2020 7:28 AM AUTOMATIC MOUNTER lidocaine hcl (PF) (XYLOCAINE MPF) 2 % injection Infiltration, PRN, Starting on Wed08/19/20 at 0736, Until Wed08/19/20 at 1600, Anesthesia Intra-op $ Given 08/19/2020 7:36 AM AUTOMATIC MOUNTER 100 mg Ondansetron HCl (ZOFRAN) injection Intravenous, PRN, Starting on Wed08/19/20 at 0846, Until Wed08/19/20 at 1600, Anesthesia Intra-op $ Given 08/19/2020 3:31 PM AUTOMATIC MOUNTER 4 mg $ Given 08/19/2020 8:46 AM AUTOMATIC MOUNTER 4 mg phenylephrine 100 mcg/mL injection Intravenous, PRN, Starting on Wed08/19/20 at 0809, Until Wed08/19/20 at 1600, Anesthesia Intra-op $ Given 08/19/2020 9:17 AM AUTOMATIC MOUNTER 200 mcg $ Given 08/19/2020 8:21 AM AUTOMATIC MOUNTER 200 mcg $ Given 08/19/2020 8:09 AM AUTOMATIC MOUNTER 200 mcg phenylephrine 20 mg in 250 mL NACL 0.9% infusion CONTINUOUS PRN, Starting on Wed08/19/20 at 0927, Until Wed08/19/20 at 1600, Anesthesia Intra-op Rate Change 08/19/2020 1:12 PM AUTOMATIC MOUNTER 0.03 mcg/kg/min 1.57 mL/hr Restarted 08/19/2020 12:25 PM AUTOMATIC MOUNTER 0.05 mcg/kg/min 2.62 mL /hr Rate Change 08/19/2020 12:06 PM AUTOMATIC MOUNTER 0.05 mcg/kg/min 2.62 m L/hr propofol (DIPRIVAN) injection Intravenous, PRN, Starting on Wed08/19/20 at 0736, Until Wed08/19/20 at 1600, Anesthesia Intra-op $ Given 08/19/2020 7:36 AM AUTOMATIC MOUNTER 150 mg rocuronium (ZEMURON) injection Intravenous, PRN, Starting on Wed08/19/20 at 0736, Until Wed08/19/20 at 1600, Anesthesia Intra-op $ Given 08/19/2020 2:54 PM AUTOMATIC MOUNTER 50 mg $ Given 08/19/2020 1:21 PM AUTOMATIC MOUNTER 50 mg $ Given 08/19/2020 7:36 AM AUTOMATIC MOUNTER 5 mg succinylcholine (ANECTINE) injection Intravenous, PRN, Starting on Wed08/19/20 at 0736, Until Wed08/19/20 at 1600, Anesthesia Intra-op $ Given 08/19/2020 7:36 AM AUTOMATIC MOUNTER 100 mg sugammadex (BRIDION) injection PRN, Starting on Wed08/19/20 at 1530, Until Wed08/19/20 at 1600, Anesthesia Intra-op $ Given 08/19/2020 3:30 PM AUTOMATIC MOUNTER 280 mg documented in this encounter Care Teams Claims Adjuster Relationship Specialty Start Date End Date Taniya Grimes MD [address] [place] [address] PCP - General 07/01/20 05/10/22 Marylu Marie DO [address] OF [facility] [place] [address] Resident - PCP Student Resident 06/26/20 01/11/22 documented as of this encounter
--- OUTSIDE RECORDS SUMMARY | 2024-07-23 07:26 | XMS_ITS | Encounter Summary ---
Author Organization [facility] Health Address [address] [place] [address] Care Team Providers Care Hot Molder Name Role Phone Marylu Marie DO Unavailable Taniya Grimes MD Primary Care Provider Encounter Details Date Type Department Care Team (Latest Contact Info) Description 08/15/2020 Travel Social History Tobacco Use Types Packs/Day [...] have Coronavirus / COVID-19? No / Unsure 08/15/2020 10:13 AM WOMENS VOLLEYBALL COACH documented as of this encounter Functional Status [...] (Late Contact Info) Description 07/25/2024 10:00 AM WOMENS VOLLEYBALL COACH Office Visit [facility] - Endocrinology [address] [place] [phone] Yosi Bustamante MD [address] [place] [address] 2L [place] [address] 07/26/2024 10:00 AM WOMENS VOLLEYBALL COACH Appointment [facility] [address] [place] [phone] Neri Delgado MD [address] [place] [address] 07/26/2024 10:00 AM WOMENS VOLLEYBALL COACH Office Visit [facility] - ENT [address] [place] [phone] Myra Farmer, STRUCTURED CABLING TECHNICIAN [address] [place] [address] 2L [place] [phone] 07/26/2024 11:15 AM WOMENS VOLLEYBALL COACH Office Visit [facility] [address] [place] [phone] Neri Delgado MD [address] [place] [phone] 08/02/2024 2:20 PM WOMENS VOLLEYBALL COACH Appointment [facility] [address] [place] [address] 08/02/2024 3:00 PM WOMENS VOLLEYBALL COACH Office Visit [facility] - Hematology/Oncology [address] [place] [phone] Remi Beckett MD [address] [place] [phone] 08/18/2024 1:45 PM WOMENS VOLLEYBALL COACH Office Visit [facility] - ENT [address] [place] [phone] Neri Delgado MD [address] [place] [address] documented as of this encounter Visit Diagnoses Not on filedocumented in this encounter Care Teams Hot Molder Relationship Specialty Start Date End Date Taniya Grimes MD [address] [place] [address] 2L DIV OF [facility] [place] [address] PCP - General 07/01/20 05/10/22 Marylu Marie DO [address] [place] [address] 2L [place] [address] Resident - PCP Student Resident 06/26/20 01/11/22 documented as of this encounter
--- OUTSIDE RECORDS SUMMARY | 2024-07-23 07:26 | XMS_ITS | Encounter Summary ---
Author Organization [facility] Health Address [address] [place] [address] Care Team Providers Care Casting Machine Set Up Operator Name Role Phone Marylu Marie DO Unavailable Taniya Grimes MD Primary Care Provider Reason for Visit * Radiology Services (Routine) - Closed Specialty Diagnoses / Procedures Referred By Yuan t Referred To Contact MRI Diagnoses Neck mass Procedures MRI NECK SOFT TISSUE WWO CONT Dionte Comer MD [address] [place] [address] [place] [address] Referral ID Status Reason Start Date Expiration Date Visits Re quested Visits Authorized [id number] Closed 08/09/2020 02/07/2021 1 1 Encounter Details Date Type Department Care Team (Latest Contact Info) Description 08/17/2020 12:15 PM SALES RECEPTIONIST - 08/17/2020 12:19 PM [facility] Hospital Encounter [facility] MRI [address] [place] [phone] Dionte Comer MD [address] [facility] 2L [place] [address] Discharge Disposition: Home or Self Care Social [...] COVID-19? No / Unsure 08/17/2020 11:32 AM SALES RECEPTIONIST documented as of this encounter Functional Status [...] times daily 30 capsule 1 08/29/2020 10/03/2020 [id number]-[id number] 333-133-5 MG tablet Take 1 tablet by [...] fluticasone propionate (FLONASE) 50 MCG/ACT nasal spray [place] 2 sprays into each nostril 16 g 09/06/2019 04/11/2021 gabapentin (NEURONTIN) 300 MG capsuleIndications:Nicole favio osteoarthritis of left hip TAKE 1 CAPSULE BY MOUTH THREE TIMES A DAY 90 capsule 5 03/08/2020 09/06/2020 [id number]-C -HYAL PO Take 1 tablet by mouth 3 times daily 06/13/2023 levothyroxine (SYNTHROID) 112 MCG tablet Take 1 (one) tablet by mouth once daily 30 tablet 1 08/30/2020 10/14/2020 meloxicam (MOBIC) 7.5 MG tablet TAKE 1 TABLET BY MOUTH EVERY DAY 60 tablet 2 07/16/2020 01/13/2021 [place]-3 Fatty Acids (FISH OIL) 1000 MG capsule [...] st Contact Info) Description 07/25/2024 10:00 AM SALES RECEPTIONIST Office Visit [facility] - Endocrinology [address] [place] [phone] Yosi Bustamante MD [address] [place] [address] 2L [place] [address] 07/26/2024 10:00 AM SALES RECEPTIONIST Appointment [facility] [address] [place] [address] Neri Delgado MD [address] [place] [address] 07/26/2024 10:00 AM SALES RECEPTIONIST Office Visit [facility] - ENT [address] [place] [phone] Myra Farmer, LOCKSTITCH LINING MAKER [address] [place] [address] 2L [place] [address] 07/26/2024 11:15 AM SALES RECEPTIONIST Office Visit [facility] - ENT [address] [place] [phone] Neri Delgado MD [address] [place] [address] 08/02/2024 2:20 PM SALES RECEPTIONIST Appointment [facility] [address] [place] [address] 08/02/2024 3:00 PM SALES RECEPTIONIST Office Visit [facility] - Hematology/Oncology [facility] [place] [phone] [place] [address] [place] [phone] 08/18/2024 1:45 PM SALES RECEPTIONIST Office Visit [facility] - ENT [address] [place] [phone] [place] [address] [place] [address] documented as of this encounter Procedures Procedure Name Priority Date/Time Associated Diagnosis Comments MRI NECK SOFT TISSUE WWO CONT Routine 08/17/2020 1:39 PM SALES RECEPTIONIST Neck mass documented in this encounter Results * MRI NECK SOFT TISSUE WWO CONT (08/17/2020 1:39 PM SALES RECEPTIONIST) Anatomical Region Laterality Modality Head Magnetic Resonan ce 08/19/2020 7:32 AM SALES RECEPTIONIST Impressions 08/19/2020 11:14 AM SALES RECEPTIONIST IMPRESSION: 1.Corresponding to the abnormality seen on [...] 11:14 AM . Narrative 08/19/2020 11:14 AM SALES RECEPTIONIST EXAMINATION: MRI of the brain without contrast [...] head and neck documented in this encounter Administered Medications Inactive Administered Medications - up to 3 most recent administrations Medication Order MAR Action Action Date Dose Rate Site gadobutrol (GADAVIST) injection Intravenous, CONTRAST ONCE, Starting on 08/17/20 at 1236, Until 08/18/20 at 0120 $ Given - Contrast 08/17/2020 1:40 PM SALES RECEPTIONIST 7 mL documented in this encounter Care Teams Casting Machine Set Up Operator Relationship Specialty Start Date End Date Taniya Grimes MD [address] 2L DIV OF [facility] [address] PCP - General 07/01/20 05/10/22 Marylu Marie DO [address] 2L DIV OF [facility] [place] [address] Resident - PCP Student Resident 06/26/20 01/11/22 documented as of this encounter
--- OUTSIDE RECORDS SUMMARY | 2024-07-23 07:27 | XMS_ITS | Encounter Summary ---
Author Organization [facility] Health Address [address] [facility] [place] [address] Care Team Providers Care Golf Ball Marker Name Role Phone Marylu Marie DO Unavailable Taniya Grimes MD Primary Care Provider [phone] Reason for Visit * Reason Comments Ear Pain R ear elevated wound with scab ~5 cm with reddness around area. No obvious drainage. Started 08/05/20. Pt states possible spider bite but did not see spider. A&Ox4. Encounter Details Date Type Department Care Team (Late st Contact Info) Description 08/07/2020 2:50 PM CAREERS ADVISER - 08/07/2020 6:09 PM CAREERS ADVISER Emergency [facility] [address] [place] [phone] Encounter for administrative examinations, unspecified Discharge Disposition: Left Against Medical Advice/Discontinued Care Social History Tobacco Use Types Packs/Day [...] have Coronavirus / COVID-19? No / Unsure 07/26/2020 11:45 AM CAREERS ADVISER documented as of this encounter Last Filed Vital Signs Vital Sign Reading Time Taken Comments Blood Pressure - - Pulse 66 08/07/2020 2:51 PM CAREERS ADVISER Temperature 36.5 ??C (97.7 ??F) 08/07/2020 2:51 PM CS T Respiratory Rate 18 08/07/2020 2:51 PM CAREERS ADVISER Oxygen Saturation 96% 08/07/2020 2:51 PM CAREERS ADVISER Inhaled Oxygen Concentration - - Weight 68.5 kg (151 lb) 08/07/2020 2:51 PM CAREERS ADVISER Height 154.9 cm (5' 1) 08/07/2020 2:51 PM CAREERS ADVISER Body Mass Index 28.53 08/07/2020 2:51 PM CAREERS ADVISER documented in this encounter Functional Status Functional [...] by mouth as needed 01/13/2021 albuterol HFA (PROVENTIL;VENTOLIN;ME OAIR) 108 (90 Base) MCG/ACT inhaler Inhale [...] times daily 30 capsule 1 08/29/2020 10/03/2020 [id number] 333-133-5 MG tablet Take 1 tablet by [...] fluticasone propionate (FLONASE) 50 MCG/ACT nasal spray [place] 2 sprays into each nostril 16 g 09/06/2019 04/11/2021 gabapentin (NEURONTIN) 300 MG capsuleIndications:Nicole favio osteoarthritis of left hip TAKE 1 CAPSULE BY MOUTH THREE TIMES A DAY 90 capsule 5 03/08/2020 09/06/2020 [id number]-RZZ-C -HYAL PO Take 1 tablet by mouth 3 times daily 06/13/2023 levothyroxine (SYNTHROID) 112 MCG tablet Take 1 (one) tablet by mouth once daily 30 tablet 1 08/30/2020 10/14/2020 meloxicam (MOBIC) 7.5 MG tablet TAKE 1 TABLET BY MOUTH EVERY DAY 60 tablet 2 07/16/2020 01/13/2021 [place]-3 Fatty Acids (FISH OIL) 1000 MG capsule [...] 11/19/2016 01/13/2021 documented as of this encounter ED Notes * Talisha Leo RN - 08/07/2020 6:07 PM CST Pt decided to leave because she only had half a tank of oxygen to get home with. ERS ADVISER * Edna Shukla - 08/07/2020 4:07 PM CST Pt ambulated to the bathroom without difficulty; no distress noted at this time. ERS ADVISER * Milly Galindo RN - 08/07/2020 3:18 PM CST Pt states she has thryroid surgery due to ca scheduled for and is requesting to get ear evaluated prior to surgery. ERS ADVISER documented in this encounter Plan of Treatment Upcoming Encounters Date Type Department Care Team (Late st Contact Info) Description 07/25/2024 10:00 AM CAREERS ADVISER Office Visit [facility] - Endocrinology [address] [place] [phone] Yosi Bustamante MD [address] [place] [address] [place] [address] 07/26/2024 10:00 AM CAREERS ADVISER Appointment [facility] RAD [address] [place] [phone] Neri Delgado MD [address] [place] [address] 07/26/2024 10:00 AM CAREERS ADVISER Office Visit [facility] - ENT [address] [place] [phone] yMra Farmer, MOLD MOVER [address] [place] [address] [address] [place] [address] 07/26/2024 11:15 AM CAREERS ADVISER Office Visit [facility] - ENT [address] [place] [phone] Neri Delgado MD [address] [place] [address] 08/02/2024 2:20 PM CAREERS ADVISER Appointment [facility] [address] [place] [address] 08/02/2024 3:00 PM CAREERS ADVISER Office Visit [facility] - Hematology/Oncology [address] [place] [phone] Remi Beckett MD [address] [place] [phone] 08/18/2024 1:45 PM CAREERS ADVISER Office Visit [facility] - ENT [address] [place] [phone] Neri Delgado MD [address] [place] [address] documented as of this encounter Visit Diagnoses Diagnosis Encounter for administrative examinations, unspecified documented in this encounter Care Teams Golf Ball Marker Relationship Specialty Start Date End Date Taniya Grimes MD [address] [place] [address] [address]L DIV [place] [phone] PCP - General 07/01/20 05/10/22 Marylu Marie DO [address] [address] Resident - PCP Student Resident 06/26/20 01/11/22 documented as of this encounter
--- OUTSIDE RECORDS SUMMARY | 2024-07-23 07:27 | XMS_ITS | Encounter Summary ---
Author Organization [facility] Address [address] [facility] [place] [address] Care Team Providers Care Mining Machinery Assembler Name Role Phone Marylu Marie DO Unavailable Taniya Grimes MD Primary Care Provider Reason for Referral * Radiology Services (Routine) - Closed Specialty Diagnoses / Procedures Referred By Yuan t Referred To Contact MRI Diagnoses Neck mass Procedures MRI BRAIN WO CONTRAST Dionte Comer MD [address] [facility] 2L [place] [address] Referral ID Status Reason Start Date Expiration Date Visits Re quested Visits Authorized [id number] Closed 08/09/2020 02/07/2021 1 1 ELING RAMP SUPERVISOR * Radiology Services (Routine) - Closed Specialty Diagnoses / Procedures Referred By Yuan t Referred To Contact MRI Diagnoses Neck mass Procedures MRI NECK SOFT TISSUE WWO CONT Dionte Comer MD [address] [facility] 2L [place] [address] Referral ID Status Reason Start Date Expiration Date Visits Re quested Visits Authorized [id number] Closed 08/09/2020 02/07/2021 1 1 ELING RAMP SUPERVISOR Encounter Details Date Type Department Care Team (Late st Contact Info) Description 08/07/2020 Orders Only [facility] Otolaryngology [facility] [place] [address] Mariah Nunn RN Neck mass Social History Tobacco Use Types Packs/Day Years [...] COVID-19? No / Unsure 07/26/2020 11:45 AM REFUELING RAMP SUPERVISOR documented as of this encounter Functional Status [...] st Contact Info) Description 07/25/2024 10:00 AM REFUELING RAMP SUPERVISOR Office Visit [facility] - Endocrinology [address] [place] [phone] Yosi Bustamante MD [address] [place] [address] [place] [address] 07/26/2024 10:00 AM REFUELING RAMP SUPERVISOR Appointment [facility] [address] [place] [phone] Neri Delgado MD [address] [place] [address] 07/26/2024 10:00 AM REFUELING RAMP SUPERVISOR Office Visit [facility] - ENT [address] [place] [phone] Myra Farmer, EDGE INKER [address] [place] [address] [place] [phone] 07/26/2024 11:15 AM REFUELING RAMP SUPERVISOR Office Visit [facility] - ENT [address] [place] [phone] Neri Delgado MD [address] [place] [address] 08/02/2024 2:20 PM REFUELING RAMP SUPERVISOR Appointment [facility] [address] [place] [address] 08/02/2024 3:00 PM REFUELING RAMP SUPERVISOR Office Visit [facility] - Hematology/Oncology [address] [place] [phone] Remi Beckett MD [address] [place] [phone] 08/18/2024 1:45 PM REFUELING RAMP SUPERVISOR Office Visit [facility] - ENT [address] [place] [phone] Neri Delgado MD [address] [place] [address] documented as of this encounter Results * MRI BRAIN WO CONTRAST (08/17/2020 1:40 PM REFUELING RAMP SUPERVISOR) Anatomical Region Laterality Modality Head Magnetic Resonan ce 08/19/2020 7:32 AM REFUELING RAMP SUPERVISOR Impressions 08/19/2020 11:14 AM REFUELING RAMP SUPERVISOR IMPRESSION: 1.Corresponding to the abnormality seen on [...] 11:14 AM . Narrative 08/19/2020 11:14 AM REFUELING RAMP SUPERVISOR EXAMINATION: MRI of the brain without contrast [...] SOFT TISSUE WWO CONT (08/17/2020 1:39 PM REFUELING RAMP SUPERVISOR) Anatomical Region Laterality Modality Head Magnetic Resonan ce 08/19/2020 7:32 AM REFUELING RAMP SUPERVISOR Impressions 08/19/2020 11:14 AM REFUELING RAMP SUPERVISOR IMPRESSION: 1.Corresponding to the abnormality seen on [...] 11:14 AM . Narrative 08/19/2020 11:14 AM REFUELING RAMP SUPERVISOR EXAMINATION: MRI of the brain without contrast [...] in this encounter Visit Diagnoses Diagnosis Neck mass- Primary Swelling, mass, or lump in head and neck Neck mass Swelling, mass, or lump in head and neck Neck mass Swelling, mass, or lump in head and neck documented in this encounter Care Teams Mining Machinery Assembler Relationship Specialty Start Date End Date Taniya Grimes MD [address] [facility] [address] 2L DIV OF [facility] [place] [address] PCP - General 07/01/20 05/10/22 Marylu Marie DO [address] [facility] DIV OF [facility] [place] [address] Resident - PCP Student Resident 06/26/20 01/11/22 documented as of this encounter
--- OUTSIDE RECORDS SUMMARY | 2024-07-23 07:27 | XMS_ITS | Encounter Summary ---
Author Organization [facility] Health Address [address] [facility] [place] [address] Care Team Providers Care Medical Management Specialist Name Role Phone Marylu Marie DO Unavailable Taniya Grimes MD Primary Care Provider Reason for Visit * Reason Onset Date Comments Spider Bite 08/08/2020 Encounter Details Date Type Department Care Team (Late st Contact Info) Description 08/08/2020 Telephone [facility] General Internal Medicine [address] [place] [address], [place] [address] Taniya Grimes MD [address] [place] [address] [place] [address] Spider Bite Social History Tobacco Use Types Packs/Day Years [...] COVID-19? No / Unsure 07/26/2020 11:45 AM LINEMAN documented as of this encounter Functional Status [...] No 08/01/2020 documented as of this encounter Miscellaneous Notes * Telephone Encounter - Esther Branch RN - 08/08/2020 8:58 AM LINEMAN Pt calling requesting to speak to the pcp as she thinks that she was bit by a spider in the right ear. Pt states she was at [facility] ED last evening although was not seen as the wait time was too long. Triage instructed the pt that an ACS appt is necessary to evaluate the ear. Pt agreeable and transferred to scheduling. MAN documented in this encounter Plan of Treatment Upcoming Encounters Date Type Department Care Team (Late st Contact Info) Description 07/25/2024 10:00 AM LINEMAN Office Visit [facility] - Endocrinology [address] [place] [phone] Yosi Bustamante MD [address] [place] [address] 2L Div [place] [address] 07/26/2024 10:00 AM LINEMAN Appointment [facility] [address] [place] [phone] Neri Delgado MD [address] [place] [address] 07/26/2024 10:00 AM LINEMAN Office Visit [facility] - ENT [address] [place] [phone] Myra Farmer, CIVIL DESIGN TECHNICIAN [address] [place] [address] 2L [place] [phone] 07/26/2024 11:15 AM LINEMAN Office Visit [facility] - ENT [address] [place] [phone] Neri Delgado MD [address] [place] [address] 08/02/2024 2:20 PM LINEMAN Appointment [facility] [address] [place] [address] 08/02/2024 3:00 PM LINEMAN Office [facility] - Hematology/Oncology [address] [place] [phone] [place] [address] [place] [phone] 08/18/2024 1:45 PM LINEMAN Office Visit [facility] - ENT [address] [place] [phone] Neri Delgado MD [address] [place] [address] documented as of this encounter Visit Diagnoses Not on filedocumented in this encounter Care Teams Medical Management Specialist Relationship Specialty Start Date End Date Taniya Grimes MD [address] [place] [address] 2L DIV OF [facility] [place] [address] PCP - General 07/01/20 05/10/22 Marylu Marie DO [address] [place] [address] 2L DIV OF [facility] [place] [address] Resident - PCP Student Resident 06/26/20 01/11/22 documented as of this encounter
--- OUTSIDE RECORDS SUMMARY | 2024-07-23 07:27 | XMS_ITS | Encounter Summary ---
Author Organization [facility] Health Address [address] [facility] [place] [address] Care Team Providers Care Education Administrator Name Role Phone Marylu Marie DO Unavailable [phone] Taniya Griems MD Primary Care Provider Reason for Visit * Reason Comments Insect bite Encounter Details Date Type Department Care Team (Late st Contact Info) Description 08/08/2020 11:10 AM MARKER MACHINE ATTENDANT Office Visit [facility] General Internal Medicine [facility] [facility] [place] [address] Cellulitis of other specified site (Primary Dx) Social History Tobacco Use Types [...] COVID-19? No / Unsure 07/26/2020 11:45 AM MARKER MACHINE ATTENDANT documented as of this encounter Last Filed Vital Signs Vital Sign Reading Time Taken Comments Blood Pressure 123/74 08/08/2020 11:34 AM MARKER MACHINE ATTENDANT Pulse 74 08/08/2020 11:34 AM MARKER MACHINE ATTENDANT Temperature 36.6 ??C (97.9 ??F) 08/08/2020 11:[address] Respiratory Rate 18 08/08/2020 11:34 AM MARKER MACHINE ATTENDANT Oxygen Saturation 95% 08/08/2020 11:34 AM MARKER MACHINE ATTENDANT Inhaled Oxygen Concentration - - Weight 69.4 kg (153 lb) 08/08/2020 11:34 AM MARKER MACHINE ATTENDANT Height 154.9 cm (5' 1) 08/08/2020 11:34 AM MARKER MACHINE ATTENDANT Body Mass Index 28.91 08/08/2020 11:34 AM MARKER MACHINE ATTENDANT documented in this encounter Functional Status Functional [...] No 08/01/2020 documented as of this encounter Patient Instructions * Patient Instructions* Johann العراقي - 08/08/2020 11:34 AM MARKER MACHINE ATTENDANT Ms. Hogan, You were seen in the General Internal Medicine clinic today for insect bite. Here are your instructions: ??? Take Clindamycin three times a day for 5 days ??? Let us know if your ear redness/pain does not improve Please feel free to contact us in between visits with any questions or concerns. How to Contact Us Between Office Visits If you need to make an appointment with your doctor, please do so before you leave today. If you become ill and need to be seen before your next visit, you can call for a same day appointment through the Acute Care Service. Acute Care appointments with one of the physicains in the practice are generally made thesame day that you need to be seen. Please call us at [phone], option 1 thenoption 1 in the morning you would like to be seen. For scheduling routine appointments, requesting refills or leaving a message for your doctor, the office phone is [phone]. You will be given options to get to the assistance you need. Phone lines are open from 8:00 am to4:30 pm Wednesday through Wednesday. All prescription refills must be requested during regular office phone hours. Our fax number is [phone]. After hours urgent calls that cannot wait untill phone lines are open on the next business day are given to the General Internal Medicine physician quality liaison. Please call [phone]. Identify yourself as a patient in our practice and give the bench machine operator your doctor's name. The bench machine operator will contact the physician quality liaison. You can generally expect a return call within 30 minutes. On weekends, physicians are seeing hospitalized patients and there maybe a longer wait. Visit our website at [email or web address] for information about our practice and an interactive health encyclopedia. Our clinic's missed appointment policy is: - Patients with 3 consecutively missed appointments OR 3 missed appointments in a 12 month period will no longer be seen by General Internal Medicine. They will be asked to seek Primary Care outside of [facility]. - A missed appointment is defined as: * An appointment cancelled less than 24 hours in advance *Arriving to a scheduled appointment too late to be seen (Patients who arrive to clinic later than their scheduled appointment time may not be seen) * Not showing up for an appointment ER MACHINE ATTENDANT documented in this encounter Progress Notes * Thomas Higuera MD - 08/09/2020 10:15 AM CST Attending Physician's note Brisa Hogan is a 60 year old female who is here for insect bite I have verified the documentation of the medical student including all history, exam, and medical decision-making details. I have personally performed a physical exam and have personally reviewed thedata to support my medical decision-making as outlined in the medical student???s note, and I arrive independently at the same conclusion. In addition I note: Interval history: Problem Cellulitis Woke up 5d prior to presentation w/ right ear pain and wound, 2 day prior had some purulent drainage from the site. Flushed with hydrogen peroxide. No fevers chills. No insects seen On examination, I find: BP 123/74 Pulse 74 Temp 97.9 ??F (36.6 ??C) (Temporal) Resp 18 Ht 5' 1 (1.549 m) Wt 153 lb (69.4 kg) SpO2 95% BMI 28.91 kg/m2 Physical Exam Constitutional: She is well-developed, well-nourished, and in no distress. HENT: Right Ear: Tympanic membrane normal. No foreign bodies. Tympanic membrane is not erythematous. Left Ear: Tympanic membrane, external ear and ear canal normal. Erythematous EAC on right Skin: There is erythema (R ear w/ central eschar w/ warmth/tenderness, no fluctuance). Assessment/Plan: Problem List Items Addressed This Visit Cellulitis - Primary Inner/outer ear inflammation, cellulitis vs other, reported purulence -Treatment for purulent cellulitis, 5d clindamycin -f/u if no improvement Relevant Medications clindamycin (CLEOCIN) 300 MG capsule See note by student for further details. 08/08/2020 Thomas Gallegos MD Coding Rationale New or est? Established Patient Total time spent on date of encounter: 20 minutes Highest problem complexity: 1 acute, uncomplicated illness or injury Highest level of risk: Moderate Suggested code: 11227 ER MACHINE ATTENDANT * Fabian Benoit - 08/08/2020 11:54 AM CST [facility] General Internal Medicine Acute Care Patient Note CC: Chief Complaint Patient presents with ??? Insect bite Assessment & Plan: #Right ear wound #Secondary Cellulitis to insect bite -Improving -erythema, edema, warmth, open -ddx:infection vs insect bite vs cat scratch -negative constitutional sx Plan: Clindamycin TID X5 days Patient discussed with attending physician, Dr. Higuera, who agrees with my assessment and plan. History of Present Illness: Brisa Hogan is a 60 year old female with follicular thyroid neoplasm, OCD, psoriasis, HLD, a smoking hx, vocal cord paralysis, presenting to [facility] clinic for right ear wound. She explains that shewoke up at her normal time with an open wound and pain on 08/04/20 which worsened until 08/08, when itbegan to improve. She went to the ED for it 08/07/20 but didn't want to wait too long for it. She swapna rizes that a spider bit her, or possibly her cat scratched her. She flushed it with hydrogen peroxide and squeezed some yellow, thick purulence out of it. She has never experienced this before. [place] in a mobile home and have multiple cats. She notes no new constitutional symptoms since this began- fever/chills/shakes/ n/v/diarrhea/myalgias/malaise. She wonders if this is impact her ability to have surgery 08/19/20 for her thyroid neoplasm. Past Medical History: Reviewed and updated in [...] COMPLEX) tablet Take by mouth DAILY. ??? zdjcqwr-smbbwnmcr-hmpg 333-133-5 MG tablet Take 1 tablet by [...] fluticasone propionate (FLONASE) 50 MCG/ACT nasal spray [place] 2 sprays into each nostril 16 g 0 ??? gabapentin (NEURONTIN) 300 MG capsule TAKE 1 CAPSULE BY MOUTH THREE TIMES A DAY (Patient takingdifferently: Take 300 mg by mouth 3 times daily ) 90 capsule 5 ??? AOLLAF-CYXDVHUQL-OQV-C-HYAL PO Take 1 tablet by mouth 3 times daily ??? meloxicam (MOBIC) 7.5 MG tablet TAKE 1 TABLET BY MOUTH EVERY DAY 60 tablet 2 ??? [place]-3 Fatty Acids (FISH OIL) 1000 MG capsule [...] Systems: Review of Systems Constitutional: Negative for chills, diaphoresis and fever. HENT: Positive for ear discharge and ear pain. Negative for hearing loss and tinnitus. Physical Exam: BP 123/74 Pulse 74 Temp 97.9 ??F (36.6 ??C) (Temporal) Resp 18 Ht 5' 1 (1.549 m) Wt 153 lb (69.4 kg) SpO2 95% BMI 28.91 kg/m2 Physical Exam Constitutional: She appears distressed. HENT: Head: Normocephalic and atraumatic. Erythema/edema on auricle visible anterior and posterior with an open wound centrally Without fluctuance/induration External auditory canal erythema Cardiovascular: Normal rate, regular rhythm and normal heart sounds. Pulmonary/Chest: Effort normal and breath sounds normal. Fabian Benoit 08/08/2020 ER MACHINE ATTENDANT documented in this encounter Plan of Treatment Upcoming Encounters Date Type Department Care Team (Late st Contact Info) Description 07/25/2024 10:00 AM MARKER MACHINE ATTENDANT Office Visit [facility] - Endocrinology [address] [place] [phone] Yosi Bustamante MD [address] [place] [address] [place] [address] 07/26/2024 10:00 AM MARKER MACHINE ATTENDANT Appointment [facility] [address] [place] [phone] Neri Delgado MD [address] [place] [address] 07/26/2024 10:00 AM MARKER MACHINE ATTENDANT Office Visit [facility] - ENT [address] [place] [phone] Myra Farmer, SLASHER SAWYER [address] [place] [address] [place] [phone] 07/26/2024 11:15 AM MARKER MACHINE ATTENDANT Office Visit [facility] - ENT [address] [place] [phone] Neri Delgado MD [address] [place] [phone] 08/02/2024 2:20 PM MARKER MACHINE ATTENDANT Appointment [facility] [address] [place] [address] 08/02/2024 3:00 PM MARKER MACHINE ATTENDANT Office Visit [facility] - Hematology/Oncology [address] [place] [phone] Remi Beckett MD [address] [place] [phone] 08/18/2024 1:45 PM MARKER MACHINE ATTENDANT Office Visit [facility] - ENT [address] [place] [phone] Neri Delgado MD [address] [place] [address] documented as of this encounter Visit Diagnoses Diagnosis Cellulitis of other specified site- Primary * Assessment & Plan Note - Thomas Higuera MD - 08/09/2020 10:14 AM MARKER MACHINE ATTENDANT Associated Problem(s): Cellulitis Inner/outer ear inflammation, cellulitis vs other, reported purulence -Treatment for purulent cellulitis, 5d clindamycin -f/u if no improvement ER MACHINE ATTENDANT documented in this encounter Care Teams Education Administrator Relationship Specialty Start Date End Date Taniya Grimes MD [address] 2L DIV OF [facility] [place] [address] PCP - General 07/01/20 05/10/22 Marylu Marie DO [address] 2L DIV OF [facility] [place] [address] Resident - PCP Student Resident 06/26/20 01/11/22 documented as of this encounter
--- OUTSIDE RECORDS SUMMARY | 2024-07-23 07:27 | XMS_ITS | Encounter Summary ---
Author Organization [facility] Health Address [address] [place] [address] Care Team Providers Care Log Marker Name Role Phone Marylu Marie DO Unavailable Taniya Grimes MD Primary Care Provider Reason for Visit * Auth/Cert Specialty Diagnoses / Procedures Referred By Contac t Referred To Contact Diagnoses Thyroid nodule Procedures US THYROID FNA Referral ID Status Reason Start Date Expiration Date Visits Re quested Visits Authorized [id number] 1 1 Encounter Details Date Type Department Care Team (Latest Contact Info) Description 08/01/2020 2:00 PM GRAIN BROKER AND MARKET OPERATOR - 08/01/2020 4:14 PM [facility] Hospital Encounter [facility] [address] [place] [address] Dionte Comer MD [address] [place] [address] Marcela Goodrich MD [facility] [address] [phone] Discharge Disposition: Home or Self Care Anesthesia [...] Room 1549 ANPTO2 1600 An Stop Meds * Agents No agents on file. * Blood No blood administrations on file. Lines, Drains, and Airways Type Details Placement Removal Peripheral IV Date: 08/19/20; Time : 618; Orientation: Left; Placed By: JOSY Buchanan; Tolerance: [...] CO2 Monitor 08/19/20 1410 by Norma Santana APRN-CRNA 08/19/20 1544 by Norma Santana APRN-CRNA Drain 08/19/20; 1507; Ana pierre MD; 1; Channel; Bulb; 19 Fr.; Bard; [id number]; [id number]; Right; Neck; General Anesthesia; 08/28/20; 1611; ENT 08/19/20 1507 by Sangita Barrow RN 08/28/20 1611 by Vincent Bird RN Drain 08/19/20; 1507; Ana pierre MD; 2; Channel; Bulb; 19 Fr.; Bard; [id number]; [id number]; Left; Neck; General Anesthesia; 08/29/20; 1133 08/19/20 1507 by Sangita Barrow RN 08/29/20 1133 by Nader Ross RN Drain 08/19/20; 1508; Ana pierre MD; 3; Open; None; 0.25in; [facility]; [place]; Other (Comment) (Central); Neck; General Anesthesia; 08/28/20; 1611; ENT 08/19/20 1508 by Sangita Barrow RN 08/28/20 1611 by Vincent Bird RN Procedural Site (Incision) 08/19/20; 1525; Neck; [...] COVID-19? No / Unsure 07/26/2020 11:45 AM GRAIN BROKER AND MARKET OPERATOR documented as of this encounter Last Filed Vital Signs Vital Sign Reading Time Taken Comments Blood Pressure 144/76 08/01/2020 3:44 PM GRAIN BROKER AND MARKET OPERATOR Pulse 63 08/01/2020 3:44 PM GRAIN BROKER AND MARKET OPERATOR Temperature 36.3 ??C (97.3 ??F) 08/01/2020 3:44 PM CS T Respiratory Rate 16 08/01/2020 3:44 PM GRAIN BROKER AND MARKET OPERATOR Oxygen Saturation 98% 08/01/2020 3:44 PM GRAIN BROKER AND MARKET OPERATOR Inhaled Oxygen Concentration - - Weight 70.3 kg (154 lb 14.4 oz) 08/01/2020 3:44 PM GRAIN BROKER AND MARKET OPERATOR Height 154.9 cm (5' 1) 08/01/2020 3:44 PM GRAIN BROKER AND MARKET OPERATOR Body Mass Index 29.27 08/01/2020 3:44 PM GRAIN BROKER AND MARKET OPERATOR documented in this encounter Functional Status [...] by mouth as needed 01/13/2021 albuterol HFA (PROVENTIL;VENTOLIN;[place] OAIR) 108 (90 Base) MCG/ACT inhaler Inhale 2 puffs by mouth every 4 hours as needed 07/05/2020 12/09/2020 atorvastatin (LIPITOR) 40 MG tabletIndications:Hype rlipidemia, unspecified hyperlipidemia type Take 1 tablet by mouth at bedtime 30 tablet 11 09/06/2019 09/13/2020 B Complex Vitamins (VITAMIN B COMPLEX) tablet Take by mouth DAILY. 11/19/2016 calcitriol (ROCALTROL) 0.5 MCG capsule Take 1 (one) capsule by mouth 2 times daily 30 capsule 1 08/29/2020 10/03/2020 dzaghqm-kdomydpkn-ffae 333-133-5 MG tablet Take 1 tablet by [...] fluticasone propionate (FLONASE) 50 MCG/ACT nasal spray [place] 2 sprays into each nostril 16 g 09/06/2019 04/11/2021 gabapentin (NEURONTIN) 300 MG capsuleIndications:Nicole stahl osteoarthritis of left hip TAKE 1 CAPSULE BY MOUTH THREE TIMES A DAY 90 capsule 5 03/08/2020 09/06/2020 [id number]-[id number]-PAT-C -HYAL PO Take 1 tablet by mouth 3 times daily 06/13/2023 levothyroxine (SYNTHROID) 112 MCG tablet Take 1 (one) tablet by mouth once daily 30 tablet 1 08/30/2020 10/14/2020 meloxicam (MOBIC) 7.5 MG tablet TAKE 1 TABLET BY MOUTH EVERY DAY 60 tablet 2 07/16/2020 01/13/2021 [place]-3 Fatty Acids (FISH OIL) 1000 MG capsule [...] st Contact Info) Description 07/25/2024 10:00 AM GRAIN BROKER AND MARKET OPERATOR Office Visit [facility] - Endocrinology [address] [place] [phone] Yosi Bustamante MD [address] [place] [address] 2L [place] [address] 07/26/2024 10:00 AM GRAIN BROKER AND MARKET OPERATOR Appointment [facility] [address] [place] [address] Neri Delgado MD [address] [place] [address] 07/26/2024 10:00 AM GRAIN BROKER AND MARKET OPERATOR Office Visit [facility] - ENT [address] [place] [phone] Myra Farmer, INDUSTRIAL SALES ENGINEER [address] [place] [address] 2L [place] [address] 07/26/2024 11:15 AM GRAIN BROKER AND MARKET OPERATOR Office Visit [facility] - ENT [address] [place] [phone] Neri Delgado MD [address] [place] [address] 08/02/2024 2:20 PM GRAIN BROKER AND MARKET OPERATOR Appointment [facility] [address] [place] [address] 08/02/2024 3:00 PM GRAIN BROKER AND MARKET OPERATOR Office Visit [facility] - Hematology/Oncology [address] [place] [phone] Remi Beckett MD [address] [place] [address] 08/18/2024 1:45 PM GRAIN BROKER AND MARKET OPERATOR Office Visit [facility] - ENT [address] [place] [address] Neri Delgado MD [address] [place] [address] documented as of this encounter Visit Diagnoses Diagnosis Pre-op evaluation- Primary Preoperative examination, unspecified documented in this encounter Care Teams Log Marker Relationship Specialty Start Date End Date Taniya Grimes MD [address] [place] [address] 2L DIV OF [facility] [place] [address] PCP - General 07/01/20 05/10/22 Marylu Marie DO [address] [place] [address] 2[place] [address] Resident - PCP Student Resident 06/26/20 01/11/22 documented as of this encounter
--- OUTSIDE RECORDS SUMMARY | 2024-07-23 07:27 | XMS_ITS | Encounter Summary ---
Author Organization [facility] Health Address [address] [place] [address] Care Team Providers Care Caul Fat Puller Name Role Phone FrankMarylu Unavailable Taniya Grimes MD Primary Care Provider Reason for Referral * Radiology Services (Routine) - Closed Specialty Diagnoses / Procedures Referred By Yuan robins Referred To Contact Radiology Diagnoses Other dysphagia Dysphagia, unspecified type Complete paralysis of right vocal cord Procedures FL SWALLOWING FUNCTION STUDY Nolvia Chun APRN-CNP [address] [place] [address] [facility] Rad [address] [place] [address] Referral ID Status Reason Start Date Expiration Date Visits Re quested Visits Authorized [id number] Closed 07/25/2020 07/25/2021 1 1 ER AUTOMATIC Reason for Visit * Radiology Services (Routine) - Closed Specialty Diagnoses / Procedures Referred By Yuan robins Referred To Contact Radiology Diagnoses Other dysphagia Dysphagia, unspecified type Complete paralysis of right vocal cord Procedures FL SWALLOWING FUNCTION STUDY Nolvia Chun APRN-CNP [address] [place] [address] [facility] Rad [address] [place] [address] Referral ID Status Reason Start Date Expiration Date Visits Re quested Visits Authorized [id number] Closed 07/25/2020 07/25/2021 1 1 Encounter Details Date Type Department Care Team (Latest Contact Info) Description 08/07/2020 2:00 PM HEMMER AUTOMATIC - 08/07/2020 11:59 PM HEMMER AUTOMATIC Hospital Encounter [facility] [address] [place] [address] Nolvia Chun, ALGOLOGIST-WINDOW FRAMER [address] [place] [address] Discharge Disposition: Home or Self Care Social [...] COVID-19? No / Unsure 07/26/2020 11:45 AM HEMMER AUTOMATIC documented as of this encounter Functional Status [...] by mouth as needed 01/13/2021 albuterol HFA (PROVENTIL;VENTOLIN;[place] OAIR) 108 (90 Base) MCG/ACT inhaler Inhale [...] times daily 30 capsule 1 08/29/2020 10/03/2020 gsugyzt-wtjwykkgi-smal 333-133-5 MG tablet Take 1 tablet by [...] fluticasone propionate (FLONASE) 50 MCG/ACT nasal spray [place] 2 sprays into each nostril 16 g 09/06/2019 04/11/2021 gabapentin (NEURONTIN) 300 MG capsuleIndications:Nicole stahl osteoarthritis of left hip TAKE 1 CAPSULE BY MOUTH THREE TIMES A DAY 90 capsule 5 03/08/2020 09/06/2020 ZRSLUR-JTNVZUTJR-ZBH-C -HYAL PO Take 1 tablet by mouth 3 times daily 06/13/2023 levothyroxine (SYNTHROID) 112 MCG tablet Take 1 (one) tablet by mouth once daily 30 tablet 1 08/30/2020 10/14/2020 meloxicam (MOBIC) 7.5 MG tablet TAKE 1 TABLET BY MOUTH EVERY DAY 60 tablet 2 07/16/2020 01/13/2021 [place] Cbc Base-3 Fatty Acids (FISH OIL) 1000 MG capsule [...] st Contact Info) Description 07/25/2024 10:00 AM HEMMER AUTOMATIC Office Visit [facility] - Endocrinology [address] [place] [phone] Yosi Bustamante MD [address] [place] [address] 2L [place] [address] 07/26/2024 10:00 AM HEMMER AUTOMATIC Appointment [facility] [address] [place] [phone] Neri Delgado MD [address] [place] [address] 07/26/2024 10:00 AM HEMMER AUTOMATIC Office Visit [facility] - ENT [address] [place] [phone] Myra Farmer, ENGINEERING TEACHER [address] [place] [address] 07/26/2024 11:15 AM HEMMER AUTOMATIC Office Visit [facility] - ENT [address] [place] [phone] Neri Delgado MD [address] [place] [address] 08/02/2024 2:20 PM HEMMER AUTOMATIC Appointment [facility] [address] [place] [address] 08/02/2024 3:00 PM HEMMER AUTOMATIC Office Visit [facility] - Hematology/Oncology [address] [place] [phone] Remi Beckett MD [address] [place] [phone] 08/18/2024 1:45 PM HEMMER AUTOMATIC Office Visit [facility] - ENT [address] [place] [phone] Neri Delgado MD [address] [place] [phone] documented as of this encounter Procedures Procedure Name Priority Date/Time Associated Diagnosis Comments FL SWALLOWING FUNCTION STUDY Routine 08/07/2020 3:25 PM HEMMER AUTOMATIC Other dysphagia Dysphagia, unspecified type Complete paralysis of right vocal cord documented in this encounter Results * FL SWALLOWING FUNCTION STUDY (08/07/2020 3:25 PM HEMMER AUTOMATIC) Anatomical Region Laterality Modality Chest Radiographic Ewa ging 08/07/2020 3:11 PM HEMMER AUTOMATIC Impressions 08/07/2020 3:16 PM HEMMER AUTOMATIC IMPRESSION: Fluoroscopic assistance was provided for a modified barium swallow test performed by Speech Therapy. Please see the Speech Therapy report for details. Report dictated by Jonathan Andre DO (transporter radiology). I, Dr. ROGER SAWYERASTICH have personally reviewed and interpreted this examination/study. This report was electronically signed by ROGER HOUSE ??on 08/07/2020 3:16 PM . Narrative 08/07/2020 3:16 PM HEMMER AUTOMATIC EXAMINATION: Modified barium swallow HISTORY: R13.19: Other [...] details. Report dictated by Jonathan Andre DO (transporter radiology). Mike, Dr. ROGER HOUSE have personally reviewed and interpreted this examination/study. This report was electronically signed by ROGER HOUSE on 08/07/2020 3:16 PM . Nolvia Chun APRN-SARAH FLUOROSCOPY ORDERA BLES documented in this encounter Visit Diagnoses Diagnosis Dysphagia, unspecified type Complete paralysis of right vocal cord documented in this encounter Administered Medications Inactive Administered Medications - up to 3 most recent administrations Medication Order MAR Action Action Date Dose Rate Site barium (E-Z-DISK) tablet 700 mg 700 mg, Oral, ONCE, 1 dose, On Wed08/07/20 at 1530 $ Given - Contrast 08/07/2020 2:35 PM HEMMER AUTOMATIC 700 mg barium (LIQUID E-Z-PAQUE) 60 % suspension Oral, ONCE, 1 dose, On Wed08/07/20 at 1530, . WASTE DISPOSAL INSTRUCTIONS: Black Bin Disposal required. $ Given - Contrast 08/07/2020 2:35 PM HEMMER AUTOMATIC 20 mL barium (Varibar) 40 % paste PSTE Oral, ONCE, 1 dose, On Wed08/07/20 at 1530 $ Given - Contrast 08/07/2020 2:35 PM HEMMER AUTOMATIC 10 mL barium (VARIBAR) 40 % suspension Oral, ONCE, 1 dose, On Wed08/07/20 at 1530 $ Given - Contrast 08/07/2020 2:35 PM HEMMER AUTOMATIC 40 mL documented in this encounter Care Teams Caul Fat Puller Relationship Specialty Start Date End Date Taniya Grimes MD [address] 2L DIV OF [facility] [place] [address] PCP - General 07/01/20 05/10/22 Marylu Marie DO [address] 2L DIV OF [facility] [place] [address] Resident - PCP Student Resident 06/26/20 01/11/22 documented as of this encounter
--- OUTSIDE RECORDS SUMMARY | 2024-07-23 07:27 | XMS_ITS | Encounter Summary ---
Author Organization [facility] Health Address [address] [place] [address] Care Team Providers Care Manager Bilingual Name Role Phone Marylu Marie DO Unavailable [phone] Taniya Grimes MD Primary Care Provider Encounter Details Date Type Department Care Team (Latest Contact Info) Description 08/15/2020 9:50 AM QUALITY ASSURANCE SUPERVISOR TRIM - 08/15/2020 11:59 PM [facility] Hospital Encounter [facility] [address] [place] [address] Dionte Comer MD [address] [place] [address] Discharge Disposition: Home or Self Care Social [...] COVID-19? No / Unsure 08/15/2020 10:13 AM QUALITY ASSURANCE SUPERVISOR TRIM documented as of this encounter Functional Status [...] by mouth as needed 01/13/2021 albuterol HFA (PROVENTIL;VENTOLIN;[place] OAIR) 108 (90 Base) MCG/ACT inhaler Inhale [...] times daily 30 capsule 1 08/29/2020 10/03/2020 qkezlwl-hdofdcwzu-ayyp 333-133-5 MG tablet Take 1 tablet by [...] fluticasone propionate (FLONASE) 50 MCG/ACT nasal spray [place] 2 sprays into each nostril 16 g 09/06/2019 04/11/2021 gabapentin (NEURONTIN) 300 MG capsuleIndications:Nicole stahl osteoarthritis of left hip TAKE 1 CAPSULE BY MOUTH THREE TIMES A DAY 90 capsule 5 03/08/2020 09/06/2020 OPLXSB-XCZUOJSVL-WKY-C -HYAL PO Take 1 tablet by mouth 3 times daily 06/13/2023 levothyroxine (SYNTHROID) 112 MCG tablet Take 1 (one) tablet by mouth once daily 30 tablet 1 08/30/2020 10/14/2020 meloxicam (MOBIC) 7.5 MG tablet TAKE 1 TABLET BY MOUTH EVERY DAY 60 tablet 2 07/16/2020 01/13/2021 [place]-3 Fatty Acids (FISH OIL) 1000 MG capsule [...] st Contact Info) Description 07/25/2024 10:00 AM QUALITY ASSURANCE SUPERVISOR TRIM Office Visit [facility] - Endocrinology [address] [facility] [place] [address] Yosi Bustamante MD [address] [place] [address] 2L [place] [address] 07/26/2024 10:00 AM QUALITY ASSURANCE SUPERVISOR TRIM Appointment [facility] [address] [place] [address] Neri Delgado MD [address] [place] [address] 07/26/2024 10:00 AM QUALITY ASSURANCE SUPERVISOR TRIM Office Visit [facility] - ENT [address] [place] [phone] Myra Farmer, CASTABLES WORKER [address] [place] [address] 2L [place] [phone] 07/26/2024 11:15 AM QUALITY ASSURANCE SUPERVISOR TRIM Office Visit [facility] - ENT [address] [place] [phone] Neri Delgado MD [address] [place] [phone] 08/02/2024 2:20 PM QUALITY ASSURANCE SUPERVISOR TRIM Appointment [facility] [address] [place] [address] 08/02/2024 3:00 PM QUALITY ASSURANCE SUPERVISOR TRIM Office Visit [facility] - Hematology/Oncology [address] [place] [phone] Remi Beckett MD [address] [place] [phone] 08/18/2024 1:45 PM QUALITY ASSURANCE SUPERVISOR TRIM Office Visit [facility] - ENT [address] [place] [phone] Neri Delgado MD [address] [place] [phone] documented as of this encounter Procedures Procedure Name Priority Date/Time Associated Diagnosis Comments SARS-COV-2 (COVID-19) IN HOUSE Routine 08/15/2020 11:01 AM QUALITY ASSURANCE SUPERVISOR TRIM Hoarseness 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 Lymphadenopathy of head and neck region documented in this encounter Results * SARS-COV-2 (COVID-19) IN HOUSE (08/15/2020 11:01 AM QUALITY ASSURANCE SUPERVISOR TRIM) COVID-19 PCR Not detected Not detected 08/15/2020 4:50 PM QUALITY ASSURANCE SUPERVISOR TRIM [facility] Microbiology SPECIMEN FROM NASOPHARYNGEAL STRUCTURE / Unknown Collection / Unknown 08/15/2020 11:01 AM QUALITY ASSURANCE SUPERVISOR TRIM 08/15/2020 11:01 AM QUALITY ASSURANCE SUPERVISOR TRIM Narrative [facility] - 08/15/2020 4:50 PM QUALITY ASSURANCE SUPERVISOR TRIM This nucleic acid amplification assay performance was validated by [facility]. This test has been [...] Comer MD LAB - MICROBIOLOGY O RDERABLES [facility] [address] [place] [address], [facility] [phone] documented in this encounter Visit Diagnoses Diagnosis Hoarseness Dysphonia Tracheal mass Swelling, mass, 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 Complete paralysis of right vocal cord Lymphadenopathy of head and neck region documented in this encounter Care Teams Manager Bilingual Relationship Specialty Start Date End Date Taniya Grimes MD [address] 2L DIV OF [facility] [place] [address] PCP - General 07/01/20 05/10/22 Marylu Marie DO [address] 2L DIV OF [facility] [place] [address] Resident - PCP Student Resident 06/26/20 01/11/22 documented as of this encounter
--- OUTSIDE RECORDS SUMMARY | 2024-07-23 07:27 | XMS_ITS | Encounter Summary ---
Author Organization [facility] Health Address [address] [facility] [place] [address] Care Team Providers Care Travel Director Name Role Phone Marylu Marie DO Unavailable Taniya Grimes MD Primary Care Provider Reason for Visit * Auth/Cert Specialty Diagnoses / Procedures Referred By Contac t Referred To Contact Diagnoses Thyroid nodule Procedures US THYROID FNA Referral ID Status Reason Start Date Expiration Date Visits Re quested Visits Authorized [id number] 1 1 Encounter Details Date Type Department Care Team (Latest Contact Info) Description 08/01/2020 4:15 PM PLASTICS PATTERNMAKER - 08/01/2020 11:59 PM [facility] Hospital Encounter [facility] LAB OP DRAW STATION [address] [place] [address] Dionte Comer MD [address] [place] [address] Marcela Goodrich MD [facility] [address] [address] Discharge Disposition: Home or Self Care Social [...] COVID-19? No / Unsure 07/26/2020 11:45 AM PLASTICS PATTERNMAKER documented as of this encounter Functional Status [...] by mouth as needed 01/13/2021 albuterol HFA (PROVENTIL;VENTOLIN;NJ OAIR) 108 (90 Base) MCG/ACT inhaler Inhale [...] times daily 30 capsule 1 08/29/2020 10/03/2020 dnzrcuf-kkhgcnyax-zreb 333-133-5 MG tablet Take 1 tablet by [...] fluticasone propionate (FLONASE) 50 MCG/ACT nasal spray [place] 2 sprays into each nostril 16 g 09/06/2019 04/11/2021 gabapentin (NEURONTIN) 300 MG capsuleIndications:Nicole favio osteoarthritis of left hip TAKE 1 CAPSULE BY MOUTH THREE TIMES A DAY 90 capsule 5 03/08/2020 09/06/2020 MNXQHD-BASONHTYN-RLH-C -HYAL PO Take 1 tablet by mouth 3 times daily 06/13/2023 levothyroxine (SYNTHROID) 112 MCG tablet Take 1 (one) tablet by mouth once daily 30 tablet 1 08/30/2020 10/14/2020 meloxicam (MOBIC) 7.5 MG tablet TAKE 1 TABLET BY MOUTH EVERY DAY 60 tablet 2 07/16/2020 01/13/2021 Gibson-3 Fatty Acids (FISH OIL) 1000 MG capsule [...] st Contact Info) Description 07/25/2024 10:00 AM PLASTICS PATTERNMAKER [facility] [address] [place] [phone] Yosi Bustamante MD [address] [place] [address] 2L [place] [address] 07/26/2024 10:00 AM PLASTICS PATTERNMAKER Appointment [facility] DIAGNOSTIC RAD [address] [place] [phone] Neri Delgado MD [address] [place] [address] 07/26/2024 10:00 AM PLASTICS PATTERNMAKER Office Visit [facility] - ENT [address] [place] [phone] Myra Farmer, BRASS CHASER [address] [place] [address] 2L [place] [phone] 07/26/2024 11:15 AM PLASTICS PATTERNMAKER Office Visit [facility] - ENT [address] [place] [phone] Neri Delgado MD [address] [place] [address] 08/02/2024 2:20 PM PLASTICS PATTERNMAKER Appointment [facility] INFUSION CENTER [address] [place] [address] 08/02/2024 3:00 PM PLASTICS PATTERNMAKER Office Visit [facility] - Hematology/Oncology [address] [place] [phone] Remi Beckett MD [address] [place] [phone] 08/18/2024 1:45 PM PLASTICS PATTERNMAKER Office Visit [facility] - ENT [address] [place] [phone] Neri Delgado MD [address] [place] [phone] documented as of this encounter Procedures Procedure Name Priority Date/Time Associated Diagnosis Comments CBC W/O DIFFERENTIAL Routine 08/01/2020 4:27 PM PLASTICS PATTERNMAKER Pre-op evaluation BASIC METABOLIC PANEL (CALCIUM TOTAL) Routine 08/01/2020 4:27 PM PLASTICS PATTERNMAKER Pre-op evaluation documented in this encounter Results * CBC W/O DIFFERENTIAL (08/01/2020 4:27 PM PLASTICS PATTERNMAKER) WBC 9.0 3.5 - 10.5 10? 3 /uL 08/01/2020 5:07 PM [facility] RBC 4.91 3.90 - 5.00 10? 6 /uL 08/01/2020 5:07 PM [facility] Hemoglobin 14.2 12.0 - 15.5 g/dL 08/01/2020 5:07 PM [facility] Hematocrit 43.5 35.0 - 45.0 % 08/01/2020 5:07 PM [facility] MCV 88.6 81.0 - 97.0 fL 08/01/2020 5:07 PM [facility] MCH 28.9 28.0 - 34.0 pg 08/01/2020 5:07 PM [facility] MCHC 32.6 32.0 - 36.0 g/dL 08/01/2020 5:07 PM [facility] Platelet Count 276 150 - 400 10? 3 /uL 08/01/2020 5:07 PM [facility] RDW-SD 41.0 36.0 - 50.0 fL 08/01/2020 5:07 PM [facility] RDW-CV 12.5 11.2 - 14.8 % 08/01/2020 5:07 PM [facility] MPV 9.5 9.3 - 12.8 fL 08/01/2020 5:07 PM [facility] nRBC Absolute 0.00 0 10? 3 /uL 08/01/2020 5:07 PM [facility] nRBC Auto 0.0 0 /100 WBC 08/01/2020 5:07 PM [facility] Blood BLOOD SPECIMEN / Unknown Lab Venipuncture / Unknown 08/01/2020 4:27 PM PLASTICS PATTERNMAKER 08/01/2020 5:01 PM PLASTICS PATTERNMAKER Dionte Comer MD LAB - HEMATOLOGY ORD ERABLES [facility] [address] [place] [address], [facility] [phone] * (ABNORMAL) BASIC METABOLIC PANEL (CALCIUM TOTAL) (08/01/2020 4:27 PM PLASTICS PATTERNMAKER) BUN 12 7 - 26 mg/dL 08/01/2020 5:26 PM [facility] Creatinine 0.8 0.6 - 1.2 mg/dL 08/01/2020 5:26 PM [facility] Sodium 141 136 - 145 mmol/L 08/01/2020 5:26 PM [facility] Potassium 3.9 3.5 - 4.5 mmol/L 08/01/2020 5:26 PM [facility] Chloride 100 98 - 107 mmol/L 08/01/2020 5:26 PM [facility] CO2 32(H) 22 - 29 mmol/L 08/01/2020 5:26 PM [facility] Glucose 82 70 - 115 mg/dL 08/01/2020 5:26 PM [facility] Calcium 9.4 8.4 - 10.2 mg/dL 08/01/2020 5:26 PM [facility] Anion Gap 13 8 - 18 08/01/2020 5:26 PM [facility] BUN/Creatinine Ratio 15 7 - 23 08/01/2020 5:26 PM [facility] Osmolality Calculated 291 270 - 300 mOsm/kg 08/01/2020 5:26 PM [facility] eGFR >60 >60 mL/min/1.7 3 m2 08/01/2020 5:26 PM PLASTICS PATTERNMAKER [facility] Blood BLOOD SPECIMEN / Unknown Lab Venipuncture / Unknown 08/01/2020 4:27 PM PLASTICS PATTERNMAKER 08/01/2020 5:01 PM PLASTICS PATTERNMAKER Dionte Comer MD LAB - CHEMISTRY [place] [facility] [address] [place] [address], [facility] [phone] documented in this encounter Visit Diagnoses Diagnosis Pre-op evaluation- Primary Preoperative examination, unspecified documented in this encounter Care Teams Travel Director Relationship Specialty Start Date End Date Taniya Grimes MD [address] [facility] 2L DIV OF [facility] [phone] PCP - General 07/01/20 05/10/22 Marylu Marie DO [address] [place] [address] 2[place] [address] Resident - PCP Student Resident 06/26/20 01/11/22 documented as of this encounter
--- OUTSIDE RECORDS SUMMARY | 2024-07-23 07:27 | XMS_ITS | Encounter Summary ---
Author Organization [facility] Health Address [address] [place] [address] Care Team Providers Care Sequins Stringer Name Role Phone Marylu Marie DO Unavailable [phone] Taniya Grimes MD Primary Care Provider [phone] Encounter Details Date Type Department Care Team (Late st Contact Info) Description 08/07/2020 Testing Visit [facility] Otolaryngology [address] [place] [phone] Myra Farmer, MEASUREMENT AND VERIFICATION ENGINEER [address] [place] [address] [place] [address] Oropharyngeal dysphagia ; Complete paralysis of right vocal cord; Tracheal mass Social History Tobacco Use Types Packs/Day [...] COVID-19? No / Unsure 07/26/2020 11:45 AM ANTI AIR WARFARE OPERATIONS OFFICER documented as of this encounter Functional [...] as of this encounter Progress Notes * Myra Ignacio, MEASUREMENT AND VERIFICATION ENGINEER - 08/07/2020 5:02 PM CST Images from the original note were not included. [facility] Speech Language Pathology Modified Barium Swallow Patient: Brisa Hogan Med Record Number [id number] Date of : 1960 Age: [age] year old Referring Physician: Dr. Comer Diagnosis: Patient Active Problem List: Psychophysiologic insomnia Chronic fatigue Snoring Obsessive-compulsive disorder Headache Primary osteoarthritis of left hip Nicotine dependence High cholesterol Psoriasis Complete paralysis of right vocal cord Hoarseness Tracheal mass Lymphadenopathy of head and neck region Past Medical History: Diagnosis Date ??? Anxiety and depression ??? Degenerative disc disease, lumbar ??? Disorder of thyroid mass on thyroid - right ??? GERD (gastroesophageal reflux disease) ??? High cholesterol ??? HLD (hyperlipidemia) ??? Osteoarthritis of one hip, left ??? Psoriasis ??? Seasonal allergies ??? Snoring ??? SOB (shortness of breath) 2/2 thyroid mass ??? Tracheal mass Subjective: Brisa Hogan is a 60 year old female with history of dysphagia to liquids beginningin July 2020. This was around the same time as her voice changed. She reports she has to take single sips or she cough/choke. She eats a regular diet. No recent chest infections. Weight has been stable. FOIS: 7, Total oral diet with no restrictions Weight: Wt Readings from Last 3 Encounters: 08/07/20 151 lb (68.5 kg) 08/01/20 154 lb 14.4 oz (70.3 kg) 08/01/20 154 lb 14.4 oz (70.3 kg) Height: Ht Readings from Last 3 Encounters: 08/07/20 5' 1 (1.549 m) 08/01/20 5' 1 (1.549 m) 08/01/20 5' 1 (1.549 m) Clinical Observations and Exam Cognitive/Mental Status: Patient appears alert, oriented with no cognitive impairments that will interfere with therapy intervention. Ambulatory status: Reduced due to hip pain Cranial nerve function: CN V, VII, IX, X, and XII were judged as within normal limits for swallowing function. Voice is weak and elevated in pitch. MODIFIED BARIUM SWALLOW STUDY: Procedure: This procedure was performed in conjunction with radiology using lateral and owrueaxh-qs-euqrpfzcr views. The patient was given the following items in the lateral view: Varibar thin liquid barium (5 cc, 5 cc, single sip, consecutive drinking task), nectar thick liquid barium (5 cc, single sip, consecutive drinking task), pudding by teaspoon. AP screen was performed with 20cc E-Z Paque Liquid Barium Sulfate Suspension (60% w/v) and 13mm barium tablet. Oral Stage: Oral transit is characterized by adequate oral containment with complete lingua-velar valving. Lingua-palatal stripping and tongue base retraction is complete. Pharyngeal Stage: Pharyngeal response is timely. Pharyngeal clearance is reduced, consistent with trace to mild base of tongue, vallecular and pyriform sinus residue. Residue clears with a spontaneous second swallow. Posterior pharyngeal wave is present but reduced. The epiglottis completely inverts. In AP view, lateral pharyngeal constriction is symmetrical and complete. Airway protection is complete. There is shallow penetration during the swallow. No aspiration is detected in this exam. Esophageal Stage: PES is patent, although somewhat irregular anteriorly at C4-C5 in the lateral andAP views. There is a cervical spine osteophyte at C4-5 with posterior impingement on the UES. A 13 mm barium tablet was transiently retained at the LES. Impressions: Brisa Hogan presents with oropharyngeal dysphagia secondary to thyroid cancer. She presents with incomplete pharyngeal clearance due to reduced pharyngeal constriction and UES distention. Airway protection is complete. There is shallow penetration during the swallow. No aspirationis detected in this exam. Results and recommendations from this evaluation were reviewed with the patient. I recommend she continue with current diet. I will review with Dr. Comer. Patient demonstrated good understanding of instructions given. Informed Consent to Treatment: Plan of care including recommended therapy, goals and frequency, as well as potential risks and benefits of treatment/assessment explained to the patient who understands and agrees to proceed. Patient and her were instructed regarding the above techniques, recommendations and plan ofcare and verbalized understanding. Guidelines were posted (inpatient only): n/a Goals: Short Term Goal(s): Patient to receive instruction in compensatory swallowing strategies and/or recommendations and verbalize understanding. Half-Way Goal(s): Patient to tolerate least restrictive diet without complications. Plan: Continue with current diet. Careful ANA ROSA precautions Oral hygiene at least twice each day Myra Ignacio MA, CCC-MEASUREMENT AND VERIFICATION ENGINEER, [facility] Speech Language Pathologist Department of Otolaryngology- Head and Neck Surgery AIR WARFARE OPERATIONS OFFICER documented in this encounter Plan of Treatment Upcoming Encounters Date Type Department Care Team (Late st Contact Info) Description 07/25/2024 10:00 AM ANTI AIR WARFARE OPERATIONS OFFICER Office Visit [facility] - Endocrinology [address] [place] [phone] Yosi Bustamante MD [address] [place] [address] 2L [place] [address] 07/26/2024 10:00 AM ANTI AIR WARFARE OPERATIONS OFFICER Appointment [facility] DIAGNOSTIC RAD [address] [place] [phone] Neri Delgado MD [address] [place] [address] 07/26/2024 10:00 AM ANTI AIR WARFARE OPERATIONS OFFICER Office Visit [facility] - ENT [address] [place] [phone] Myra Farmer MEASUREMENT AND VERIFICATION ENGINEER [address] [place] [address] 2L [place] [phone] 07/26/2024 11:15 AM ANTI AIR WARFARE OPERATIONS OFFICER Office Visit [facility] - ENT [address] [place] [phone] Neri Delgado MD [address] [place] [phone] 08/02/2024 2:20 PM ANTI AIR WARFARE OPERATIONS OFFICER Appointment [facility] INFUSION CENTER [address] [place] [address] 08/02/2024 3:00 PM ANTI AIR WARFARE OPERATIONS OFFICER Office Visit [facility] - Hematology/Oncology [address] [place] [phone] Remi Beckett MD [address] [place] [phone] 08/18/2024 1:45 PM ANTI AIR WARFARE OPERATIONS OFFICER Office Visit [facility] - ENT [address] [place] [phone] Neri Delgado MD [address] [place] [address] documented as of this encounter Visit Diagnoses Diagnosis Oropharyngeal dysphagia- Primary Dysphagia, oropharyngeal phase 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
--- OUTSIDE RECORDS SUMMARY | 2024-07-23 07:28 | XMS_ITS | Encounter Summary ---
Author Organization [facility] Health Address [address] [facility] [address] Care Team Providers Care Compliance Spec Name Role Phone Marylu Marie DO Unavailable [phone] Taniya Grimes MD Primary Care Provider Encounter Details Date Type Department Care Team (Latest Contact Info) Description 07/26/2020 Travel Social History Tobacco Use Types Packs/Day Years Used Date Smoking Tobacco: Light Smoker Cigarettes 0.3 51 Started: 07/22/1973 Smokeless Tobacco: Never Alcohol [...] COVID-19? No / Unsure 07/26/2020 11:45 AM HYDRAULIC CORRUGATING MACHINE OPERATOR documented as of this encounter Plan of Treatment Upcoming Encounters Date Type Department Care Team (Late st Contact Info) Description 07/25/2024 10:00 AM HYDRAULIC CORRUGATING MACHINE OPERATOR [facility] [address] [place] [address], [place] [phone] Yosi Bustamante MD [address] [place] [address] [place] [address] 07/26/2024 10:00 AM HYDRAULIC CORRUGATING MACHINE OPERATOR Appointment [facility] DIAGNOSTIC RAD [address] [place] [phone] Neri Delgado MD [address] [place] [address] 07/26/2024 10:00 AM HYDRAULIC CORRUGATING MACHINE OPERATOR Office Visit [facility] - ENT [address] [place] [phone] Myra Farmer, PRODUCT/INDUSTRY CONSULTANT [address] [place] [address] 2L [place] [phone] 07/26/2024 11:15 AM HYDRAULIC CORRUGATING MACHINE OPERATOR Office Visit [facility] Phys[facility] Group - ENT [address] [place] [phone] Neri Delgado MD [address] [place] [address] 08/02/2024 2:20 PM HYDRAULIC CORRUGATING MACHINE OPERATOR Appointment [facility] INFUSION CENTER [address] [place] [address] 08/02/2024 3:00 PM HYDRAULIC CORRUGATING MACHINE OPERATOR Office Visit [facility] Group - Hematology/Oncology [address] [place] [phone] Remi Beckett MD [address] [place] [phone] 08/18/2024 1:45 PM HYDRAULIC CORRUGATING MACHINE OPERATOR Office Visit [facility] - ENT [address] [place] [phone] Neri Delgado MD [address] [place] [address] documented as of this encounter Visit Diagnoses Not on filedocumented in this encounter Care Teams Compliance Spec Relationship Specialty Start Date End Date Taniya Grimes MD [address] [place] [address] 2L DIV [place] [phone] PCP - General 07/01/20 05/10/22 Marylu Marie DO [address] [place] [address] Resident - PCP Student Resident 06/26/20 01/11/22 documented as of this encounter
--- OUTSIDE RECORDS SUMMARY | 2024-07-23 07:28 | XMS_ITS | Encounter Summary ---
Author Organization [facility] Health Address [address] [place] [address] Care Team Providers Care Checker Name Role Phone GaribaldiMarylu jerry DO Unavailable [phone] Taniya Grimes MD Primary Care Provider Reason for Referral * Radiology Services (Routine) - Closed Specialty Diagnoses / Procedures Referred By Yuan robins Referred To Contact Radiology Diagnoses Other dysphagia Dysphagia, unspecified type Complete paralysis of right vocal cord Procedures FL SWALLOWING FUNCTION STUDY Nolvia Chun APRN-CNP [address] [place] [address] [facility] Diagnostic Rad [address] [place] [address] Referral ID Status Reason Start Date Expiration Date Visits Re quested Visits Authorized [id number] Closed 07/25/2020 07/25/2021 1 1 SEWER Encounter Details Date Type Department Care Team (Late st Contact Info) Description 07/25/2020 Orders Only [facility] [address] [place] [phone] Nolvia Chun APRN-CNP [address] [place], [place] [phone] Other dysphagia ; Dysphagia, unspecified type; Complete paralysis of right vocal cord Social History Tobacco Use Types Packs/Day Years [...] have Coronavirus / COVID-19? No / Unsure 07/02/2020 12:45 PM TOE SEWER documented as of this encounter Plan of Treatment Upcoming Encounters Date Type Department Care Team (Late st Contact Info) Description 07/25/2024 10:00 AM TOE SEWER Office Visit [facility] Group - Endocrinology [address] [place] [phone] Yosi Bustamante MD [address] [place] [address] 2L [place] [address] 07/26/2024 10:00 AM TOE SEWER Appointment [facility] DIAGNOSTIC RAD [address] [place] [address] Nrei Delgado MD [address] [place] [address] 07/26/2024 10:00 AM TOE SEWER Office Visit [facility] - ENT [address] [place] [phone] Myra Farmer, RO[address] [place] [address] 2L [place] [address] 07/26/2024 11:15 AM TOE SEWER Office Visit [facility] - ENT [address] [place] [phone] Neri Delgado MD [address] [place] [address] 08/02/2024 2:20 PM TOE SEWER Appointment [facility] [address] [place] [address] 08/02/2024 3:00 PM TOE SEWER Office Visit [facility] - Hematology/Oncology [address] [place] [phone] Remi Beckett MD [address] [place] [phone] 08/18/2024 1:45 PM TOE SEWER Office Visit [facility] - ENT [address] [place] [phone] Neri Delgado MD [address] [place] [address] documented as of this encounter Results * FL SWALLOWING FUNCTION STUDY (08/07/2020 3:25 PM TOE SEWER) Anatomical Region Laterality Modality Chest Radiographic Ewa ging 08/07/2020 3:11 PM TOE SEWER Impressions 08/07/2020 3:16 PM TOE SEWER IMPRESSION: Fluoroscopic assistance was provided for a modified barium swallow test performed by Speech Therapy. Please see the Speech Therapy report for details. Report dictated by Jonathan Andre DO (residential real estate appraiser). I, Dr. JOSHUA HOUSE have personally reviewed and interpreted this examination/study. This report was electronically signed by JOSHUA HOUSE ??on 08/07/2020 3:16 PM . Narrative 08/07/2020 3:16 PM TOE SEWER EXAMINATION: Modified barium swallow HISTORY: R13.19: Other dysphagia R13.10: Dysphagia, unspecified type J38.01: Complete paralysis of right vocal cord COMPARISON: No prior study is available for comparison. FLUOROSCOPY TIME: 1.6 minutes Procedure Note Joshua House DO - 08/07/2020 EXAMINATION: Modified barium [...] details. Report dictated by Jonathan Andre DO (residential real estate appraiser). I, Dr. JOSHUA HOUSE have personally reviewed and interpreted this examination/study. This report was electronically signed by JOSHUA HOUSE on 08/07/2020 3:16 PM . Nolvia Chun [employer] PORT[employer] DEVELOPER-CARE TEAM COORDINATOR SCHEDULER FLUOROSCOPY ORDERA BLES documented in this encounter Visit Diagnoses Diagnosis Dysphagia, unspecified type Complete paralysis of right vocal cord Dysphagia, unspecified type Complete paralysis of right vocal cord documented in this encounter Care Teams Checker Relationship Specialty Start Date End Date Taniya Grimes MD [address] 2L DIV OF [facility] [place] [address] PCP - General 07/01/20 05/10/22 Marylu Marie DO [address] 2L DIV OF [facility] [place] [address] Resident - PCP Student Resident 06/26/20 01/11/22 documented as of this encounter
--- OUTSIDE RECORDS SUMMARY | 2024-07-23 07:28 | XMS_ITS | Encounter Summary ---
Author Organization [facility] Address [address] [facility] [place] [address] Care Team Providers Care Welder Explosion Name Role Phone Marylu Marie DO Unavailable [phone] Taniya Grimes MD Primary Care Provider Encounter Details Date Type Department Care Team (Late Contact Info) Description 07/25/2020 Orders Only [facility] [address] [place] [address] [phone] Mariah Nunn, RN Neck mass Social History Tobacco Use [...] COVID-19? No / Unsure 07/02/2020 12:45 PM SUGAR REPROCESS OPERATOR HEAD documented as of this encounter Plan of Treatment Upcoming Encounters Date Type Department Care Team (Late Contact Info) Description 07/25/2024 10:00 AM SUGAR REPROCESS OPERATOR HEAD Office Visit [facility] - Endocrinology [address] [place] [address] [phone] Yosi Bustaamnte MD [address] [place] [address] [place] [address] 07/26/2024 10:00 AM SUGAR REPROCESS OPERATOR HEAD Appointment [facility] [address] [place] [phone] Neri Delgado MD [address] [place] [phone] 07/26/2024 10:00 AM SUGAR REPROCESS OPERATOR HEAD Office Visit [facility] - ENT [address] [place] [address] [phone] Myra Farmer, BENCH MOLDER [address] [place] [address] [place] [phone] 07/26/2024 11:15 AM SUGAR REPROCESS OPERATOR HEAD Office Visit [facility] - ENT [address] [place] [address] [phone] Neri Delgado MD [address] [place] [phone] 08/02/2024 2:20 PM SUGAR REPROCESS OPERATOR HEAD Appointment [facility] [address] [place] [phone] 08/02/2024 3:00 PM SUGAR REPROCESS OPERATOR HEAD Office Visit [facility] - Hematology/Oncology [address] [place] [address] [phone] Remi Beckett MD [address] [place] [phone] 08/18/2024 1:45 PM SUGAR REPROCESS OPERATOR HEAD Office Visit [facility] ENT [address] [place] [address] [phone] Neri Delgado MD [address] [place] [phone] documented as of this encounter Visit Diagnoses Diagnosis Neck mass- Primary Swelling, mass, or lump in head and neck documented in this encounter Care Teams Welder Explosion Relationship Specialty Start Date End Date Taniya Grimes MD [address] 2L DIV OF [facility] [place] [address] PCP - General 07/01/20 05/10/22 Marylu Marie DO [address] 2[address] DIV OF [facility] [place] [address] Resident - PCP Student Resident 06/26/20 01/11/22 documented as of this encounter
--- OUTSIDE RECORDS SUMMARY | 2024-07-23 07:28 | XMS_ITS | Encounter Summary ---
Author Organization [facility] Address [address] [facility] [place] [address] Care Team Providers Care Paper Maker Name Role Phone Marylu Marie DO Unavailable Taniya Grimes MD Primary Care Provider Reason for Visit * Auth/Cert Specialty Diagnoses / Procedures Referred By Contac t Referred To Contact Diagnoses Thyroid nodule Procedures US THYROID FNA Referral ID Status Reason Start Date Expiration Date Visits Re quested Visits Authorized [id number] 1 1 Encounter Details Date Type Department Care Team (Latest Contact Info) Description 08/01/2020 12:21 PM PIPELINE TECHNICIAN - 08/01/2020 3:27 PM PIPELINE TECHNICIAN Hospital Encounter [facility] [address] [place] [address] Dionte Comer MD [address] [place] [address] Marcela Goodrich MD [facility] [address] [phone] [facility] Discharge Disposition: Home or Self Care Social [...] COVID-19? No / Unsure 07/26/2020 11:45 AM PIPELINE TECHNICIAN documented as of this encounter Last Filed Vital Signs Vital Sign Reading Time Taken Comments Blood Pressure 146/68 08/01/2020 3:05 PM PIPELINE TECHNICIAN Pulse 64 08/01/2020 3:15 PM PIPELINE TECHNICIAN Temperature 36.4 ??C (97.6 ??F) 08/01/2020 1 2:47 PM PIPELINE TECHNICIAN Respiratory Rate 27 08/01/2020 3:15 PM PIPELINE TECHNICIAN Oxygen Saturation 99% 08/01/2020 3:15 PM PIPELINE TECHNICIAN Inhaled Oxygen Concentration - - Weight 70.3 kg (154 lb 14.4 oz) 021 12:47 PM PIPELINE TECHNICIAN Height 154.9 cm (5' 1) 08/01/2020 12:4 7 PM PIPELINE TECHNICIAN Body Mass Index 29.27 08/01/2020 12:47 PM PIPELINE TECHNICIAN documented in this encounter Functional Status Functional [...] No 08/01/2020 documented as of this encounter Discharge Instructions * Discharge Instructions* Josephine Calderón, JOSY - 08/01/2020 3:09 PM PIPELINE TECHNICIAN Images from the original note were not included. Patient Education Thyroid Nodules WHAT YOU NEED TO KNOW: Thyroid nodules are growths on your thyroid gland. Your thyroid makes hormones that help control your body temperature, heart rate, and growth. The hormones also control how fast your body uses food for energy. Some nodules are lumps of tissue, and others are filled with fluid. DISCHARGE INSTRUCTIONS: Medicines: ?? Thyroid medicine is given to bring your thyroid hormone levels back to a normal range. ?? Radioactive iodine is given to damage cells in your thyroid gland and decrease the size of your nodules. ?? Take your medicine as directed. Contact your healthcare provider if you think your medicine is not helping or if you have side effects. Tell him or her if you are allergic to any medicine. Keep a list of the medicines, vitamins, and herbs you take. Include the amounts, and when and why you take them. Bring the list or the pill bottles to follow-up visits. Carry your medicine list with you in case of an emergency. Patient Education Thyroid Fine-Needle Aspiration Biopsy WHAT YOU NEED TO KNOW: Thyroid fine-needle aspiration biopsy is a procedure to remove tissue and fluid from a nodule (lump) in your thyroid gland. This test helps your healthcare provider diagnose thyroid cancer or find thyroid nodules that are not cancer. Your healthcare provider uses the results to decide if you need more treatment. DISCHARGE INSTRUCTIONS: Call your local emergency number (911 in the ) for any of the following: ?? You have sudden trouble breathing or shortness of breath. ?? You have sudden, severe arm pain with weakness, numbness, or tingling in your arm or fingers. Seek care immediately if: ?? You have more pain, swelling, and bruising in your neck. ?? You have a fast heart rate. ?? You feel pain when you speak or swallow. ?? You have sudden swelling at the biopsy site. If this happens, apply pressure and seek care immediately. ?? You have a pulsing lump in your neck. Call your doctor or package crimper if: ?? You have discomfort or pain at the site of the biopsy. ?? You have a bruise or a purple, swollen lump at the site of the biopsy. ?? You have questions or concerns about your condition or care. Self-care: ?? Place a cold compress or ice bag on your neck to ease swelling and discomfort. Ask your healthcare provider how long and how often to do this. Any swelling and bruising should go away after several days. ?? Ask your healthcare provider when you can return to your normal activities. Follow up with your doctor or package crimper as directed: Write down your questions so you remember to ask them during your visits. ?? Copyright [employer] 2020 Information is for End User's use only and may not be sold, redistributed or otherwise used for commercial purposes. All illustrations and images included in CareNotes?? are the copyrighted property of [employer] or [employer] The above information is an ortho/prosthetic aide only. It is not intended as medical advice for individual conditions or treatments. Talk to your doctor, nurse or pharmacist before following any medical regimen to see if it is safe and effective for you. LINE TECHNICIAN documented in this encounter Medications at Time [...] by mouth as needed 01/13/2021 albuterol HFA (PROVENTIL;VENTOLIN;WI OAIR) 108 (90 Base) MCG/ACT inhaler Inhale [...] times daily 30 capsule 1 08/29/2020 10/03/2020 calcium-vitamin D (OS-YANNICK 500 + D) 500-200 [...] fluticasone propionate (FLONASE) 50 MCG/ACT nasal spray Ozan 2 sprays into each nostril 16 g 09/06/2019 04/11/2021 gabapentin (NEURONTIN) 300 MG capsuleIndications:Nicole favio osteoarthritis of left hip TAKE 1 CAPSULE BY MOUTH THREE TIMES A DAY 90 capsule 5 03/08/2020 09/06/2020 CGQNPO-SBFYTNBDO-HQN-C -HYAL PO Take 1 tablet by mouth 3 times daily 06/13/2023 levothyroxine (SYNTHROID) 112 MCG tablet Take 1 (one) tablet by mouth once daily 30 tablet 1 08/30/2020 10/14/2020 meloxicam (MOBIC) 7.5 MG tablet TAKE 1 TABLET BY MOUTH EVERY DAY 60 tablet 2 07/16/2020 01/13/2021 Mead-3 Fatty Acids (FISH OIL) 1000 MG capsule [...] as of this encounter Progress Notes * Cyrus Mcdonald RN - 08/01/2020 3:00 PM CST Bedside report given to post-op JOSY Burton for transfer of care. LINE TECHNICIAN * Cyrus Mcdonald RN - 08/01/2020 2:55 PM CST Post op notified patient finished with procedure. LINE TECHNICIAN * Cyrus Mcdonald RN - 08/01/2020 2:54 PM CST Interventional Radiology Nursing - End Procedure Note Sedation: None Sedation start time: N/A Procedure start time: 1425 hours Procedure end time: 1450 hours Additional drugs: None Contrast: NONE Fluoroscopy time: NONE LINE TECHNICIAN * Cyrus Mcdonald RN - 08/01/2020 1:59 PM CST Patient identified verbally and with armband. Pt to IR suite via stretcher. Patient to remain on stretcher during procedure. Placed in semi-fowlers position. Pt connected to continuous radiation monitor, NIBP, and pulse ox. Suction set up available at beside. NAD noted. LINE TECHNICIAN * Jeanna Dailey RN - 2020 2:50 PM CST Appt confirmed with pt. Pt verbalized understanding of pre procedure instructions. LINE TECHNICIAN documented in this encounter H&P Notes * Molly Rao MD - 08/01/2020 10:49 AM CST Vascular & Interventional Radiology Short Pre-Procedure History & Physical Patient: Brisa Hogan Age: [age] year old Date of : 1960 Date: 08/01/2020 Location: VIR Subjective: 60 year old female recemtly found to have a right thyroid nodule requiring FNA for further evaluation. Today patient presents for scheduled image guided biopsy and related procedures. Past Medical History: Diagnosis Date ??? Anxiety and depression ??? Degenerative disc disease, lumbar ??? HLD (hyperlipidemia) ??? Osteoarthritis of one hip, left ??? Psoriasis Past Surgical History: Procedure Laterality Date ??? Bilateral Tubal Ligation (BTL) ??? Section ??? ENDOSCOPY, COLON, DIAGNOSTIC no polyp ??? Polypectomy cervical (Not in a hospital admission) No Known Allergies Social History Tobacco Use ??? Smoking status: Light Tobacco Smoker Packs/day: 0.25 Types: Cigarettes Start date: 07/22/1973 ??? Smokeless tobacco: Never Used Substance Use Topics ??? Alcohol [...] Alive ??? None Known Sister Status: Alive ROS: Pertinent positive and negatives are mentioned above. All other systems reviewed were negative. Objective: Physical examination: No data found. General: well nourished, NAD Eyes: no scleral icterus, no lid lag ENT: atraumatic, MMM Neck: supple, trachea midline Lungs: normal respiratory effort, no accessory muscle use Cardiovascular: RRR, no murmurs Abdomen: soft, nontender, nondistended Extremities: warm, no pitting edema Psychiatric: AOx3, appropriate mood and affect Laboratory results: Recent Labs Component Name 03/07/20 1519 WBC 7.9 HGB 13.3 HCT 40.5 PLTCOUNT 266 No results for input(s): INR in the last 81515 hours. Recent Labs Component Name 07/24/20 1427 03/07/20 1519 NA - 143 GLUCOSE - 57* CREATININE - 0.8 EGFR >60 >60 Recent Labs Component Name 03/07/20 1519 ALB 3.8 TBILI 0.5 ALT 26 AST 23 ALKPHOS 94 Imaging: Relevant imaging studies were personally reviewed by myself and the IR attending. Pre-Sedation Evaluation: Level: Moderate with Versed and Fentanyl ASA: II. Patient with mild systemic disease Mallampati: II (soft palate, uvula, fauces visible) Fasting status: Regular Meal > 8 hours Informed consent obtained? Yes Pre-procedure vitals reviewed? Yes History of prior adverse reaction to sedation or anesthesia? No Based on the above information, the patient is an appropriate candidate for the level of sedation planned. Assessment: 60 year old female recemtly found to have a right thyroid nodule requiring FNA for further evaluation. Today patient presents for scheduled image guided biopsy and related procedures. Plan: 1. Pertinent labs and relevant imaging studies were reviewed. 2. Informed consent was obtained from the patient after explaining the risks, benefits, and alternatives of the procedure. Risks include but are not limited to infection, bleeding, and injury to surrounding structures. Additional risks include: neck pain 3. All questions were answered to the best of my ability. 4. Planned procedure: image guided biopsy and related procedures Molly Rao MD PGY-2 Vamp Stitcher LINE TECHNICIAN documented in this encounter OR Notes * Brief Op Note - Molly Rao MD - 08/01/2020 2:55 PM CST Vascular & Interventional Radiology Brief Post-Procedure Note Patient: Brisa Woody Hogan Attending: Maryse Wright MD Retail Banker: MD Trinity Ruvalcaba (MS4) Diagnosis/Indication: Indeterminate thyroid nodule Procedure: Ultrasound-guided FNA of a right sided thyroid nodule Findings: Limited US showed right thyroid nodule. Successful FNA performed with 25G needles. Anesthesia: Local with 1% Lidocaine Additional medications given: None Estimated blood loss: Minimal Specimens: 7 total passes. Samples deemed adequate for interpretation by pathologist prior to completion of procedure. Immediate complications: None Time out and final pre-procedure assessment completed immediately prior to start of procedure. Intra-procedure orders and medication record reviewed. Medications and doses administered by staff as verbally ordered. See detailed procedure note with images in PACS. Molly Rao MD PGY-2 Vamp Stitcher LINE TECHNICIAN documented in this encounter Plan of Treatment Upcoming Encounters Date Type Department Care Team (Late st Contact Info) Description 07/25/2024 10:00 AM PIPELINE TECHNICIAN Office Visit [facility] - Endocrinology [address] [place] [phone] Yosi Bustamante MD [address] [place] [address] 2L Div [place] [address] 07/26/2024 10:00 AM PIPELINE TECHNICIAN Appointment [facility] [address] [place] [address] Neri Delgado MD [address] [place] [phone] 07/26/2024 10:00 AM PIPELINE TECHNICIAN Office Visit [facility] - ENT [address] [place] [phone] Myra Farmer, LITHOGRAPH PRESS FEEDER [address] [place] [address] 2L [place] [phone] 07/26/2024 11:15 AM PIPELINE TECHNICIAN Office Visit [facility] - ENT [address] [place] [phone] Neri Delgado MD [address] [place] [phone] 08/02/2024 2:20 PM PIPELINE TECHNICIAN Appointment [facility] [address] [place] [phone] 08/02/2024 3:00 PM PIPELINE TECHNICIAN Office Visit [facility] - Hematology/Oncology [address] [place] [phone] Remi Beckett MD [address] [place] [phone] 08/18/2024 1:45 PM PIPELINE TECHNICIAN Office Visit [facility] - ENT [address] [place] [phone] Neri Delgado MD [address] [place] [address] documented as of this encounter Procedures Procedure Name Priority Date/Time Associated Diagnosis Comments FINE NEEDLE ASPIRATION - THYROID (STL) Routine 08/01/2020 2:51 PM PIPELINE TECHNICIAN Thyroid nodule US THYROID FNA Routine 08/01/2020 2:41 PM PIPELINE TECHNICIAN Thyroid nodule documented in this encounter Results * FINE NEEDLE ASPIRATION - THYROID (STL) (08/01/2020 2:51 PM PIPELINE TECHNICIAN) Case Report Medical Cytology Report ? Case: [id number] ? Authorizing Provider: ??Maryse Wright MD ? Collected: ? 08/01/2020 02:51 PM ? Ordering Location: ? [facility] ?Received: ?08/01/2020 03:15 PM ? Pathologist: ? Jhonny Young MD ? Specimen: ?Thyroid, right nodule ? 08/05/2020 3:26 PM PIPELINE TECHNICIAN [facility] Specimen Adequacy Adequate cellularity for evaluation. 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 08/05/2020 3:26 PM [facility] Clinical History The patient is a 60 year-old woman recently found to have a right thyroid nodule who underwent fine needle aspiration of the nodule on 08/01/2020. CT neck (07/24/2020) A 2.8 x 2.0 cm hypoattenuating nodule in the right lobe of the thyroid gland causing mass effect. 08/05/2020 3:26 PM [facility] Gross Description 1 pap stained slide, 1 cell block from 30cc collection fluid 08/05/2020 3:26 PM [facility] Microscopic Description A [...] its indolent counterpart NIFTP. 08/05/2020 3:26 PM [facility] Disclaimer The performance characteristics of all immunohistochemical and indirect immunofluorescence stains (if any) cited in this report were determined by the Histopathology Laboratory of [facility]. Some of these tests rely on the use of analyte-specific reagents and are subject to specific labeling requirements by the [place] Food and Drug Administration. Such tests were developed by the Histology Laboratory of [facility] and have not been cleared or approved [...] the attending (teaching) pathologist. 08/05/2020 3:26 PM PIPELINE TECHNICIAN [facility] Embedded Images 08/05/2020 3:26 PM PIPELINE TECHNICIAN [facility] Pathology/Cytolo gy SPECIMEN FROM THYROID OBTAINED BY THYROIDECTOMY / Unknown Collection / Unknown 08/01/2020 2:51 PM PIPELINE TECHNICIAN 08/01/2020 3:15 PM PIPELINE TECHNICIAN Maryse Wright MD LAB - PATHOLOGY/CYTO LOGY ORDERABLES [facility] [address] [place] [address], [facility] [[email or web address]] [phone] * US THYROID FNA (08/01/2020 2:41 PM PIPELINE TECHNICIAN) Anatomical Region Laterality Modality X-Ray Angiograph y 08/01/2020 2:59 PM PIPELINE TECHNICIAN Impressions 08/11/2020 6:37 PM PIPELINE TECHNICIAN Impression: Ultrasound-guided fine needle aspiration of a right thyroid nodule, as described above.The pathology report is pending at the time of this dictation. I, Dr. Maryse Wright, was present and performed/supervised the entire procedure. Dictated by Molly Rao M.D. (vice president of software engineering) I, Dr. MARYSE WRIGHT M.D. have personally reviewed and interpreted this examination/study. This report was electronically signed by AMRYSE WRIGHT M.D. ??on 08/11/2020 6:37 PM . Narrative 08/11/2020 6:37 PM PIPELINE TECHNICIAN History: 60 year oldfemalerecemtly found to have [...] associated with the procedure. Procedure Note Maryse Wright MD - 08/11/2020 History: 60 year oldfemalerecemtly found to have a right thyroid nodule requiring FNA for further evaluation. Today patient presents forscheduled image guided biopsy and related procedures. Operators: 1.Dr. Wright, Attending Physician 2.Dr. Molly Roa, Resident Physician Anesthesia: Local - 6 mL [...] is pending at the timeof this dictation. Dr. Maryse Mckeon, was present and performed/supervised the entire procedure. Dictated by Molly Rao M.D. (vice president of software engineering) Dr. MARYSE Mckeon M.D. have personally reviewed and interpreted this examination/study. This report was electronically signed by MARYSE WRIGHT M.D. on08/11/2020 6:37 PM . Dionte Comer MD US ORDERABLES documented in this encounter Visit Diagnoses Diagnosis Thyroid nodule Nontoxic uninodular goiter documented in this encounter Administered Medications Inactive Administered Medications - up to 3 most recent administrations Medication Order MAR Action Action Date Dose Rate Site lidocaine (XYLOCAINE) 1 % injection Subcutaneous, ONCE PRN, Starting on Josi 08/01/20 at 1420, Until Josi 08/01/20 at 1726 $ Given 08/01/2020 5:26 PM PIPELINE TECHNICIAN 1.5 mL See C omments $ Given 08/01/2020 2:20 PM PIPELINE TECHNICIAN 10 mL Se e Comments lidocaine PF (XYLOCAINE MPF) 1 % injection Epidural, ONCE PRN, Starting on Josi 08/01/20 at 1420, Until Josi 08/01/20 at 1534 documented in this encounter Active and Recently Administered Medications Times are shown in PIPELINE TECHNICIAN. PRN Medication Order 07/30/2020 2020 08/01/2020 lidocaine (XYLOCAINE) 1 % injection Subcutaneous, ONCE PRN, Starting on Josi 08/01/20 at 1420, Until Josi 08/01/20 at 1726 1420 ($ Given - Prov ider: Cyrus Mcdonald RN - Comment: to table)1726 ($ Given - Provider: Maryse Wright MD - Comment: right neck) lidocaine PF (XYLOCAINE MPF) 1 % injection Epidural, ONCE PRN, Starting on Josi 08/01/20 at 1420, Until Josi 08/01/20 at 1534 1420 (Not Administer ed - Provider: Cyrus Mcdonald RN - Reason: See Comments - Comment: Incorrect lido - not administered)1447 (Not Administered - Provider: Maryse Wright MD - Reason: See Comments - Comment: Incorrect lidocaine - did not administer) documented in this encounter Care Teams Paper Maker Relationship Specialty Start Date End Date Taniya Grimes MD [address] 2[address] DIV OF [facility] [place] [phone] PCP - General 07/01/20 05/10/22 Marylu Marie DO [address] 2[address] DIV OF [facility] [place] [address] Resident - PCP Student Resident 06/26/20 01/11/22 documented as of this encounter
--- OUTSIDE RECORDS SUMMARY | 2024-07-23 07:28 | XMS_ITS | Encounter Summary ---
Author Organization [facility] Health Address [address] [facility] [place] [address] Care Team Providers Care Ventilating Engineer Name Role Phone Marylu Marie DO Unavailable [phone] Taniya Grimes MD Primary Care Provider [phone] Reason for Visit * Reason Onset Date Comments Appointment 2020 Encounter Details Date Type Department Care Team (Late st Contact Info) Description 2020 Telephone [facility] - Orth[facility]ics [address] [place] [phone] Kendra Garay Appointment Social History Tobacco Use Types Packs/Day [...] COVID-19? No / Unsure 07/26/2020 11:45 AM MIDDLE SCHOOL TECHNOLOGY TEACHER documented as of this encounter Miscellaneous Notes * Telephone Encounter - Kendra Garay - 2020 2:16 PM CST Spoke with the patient about rescheduling her Wednesday08/06/2020 3:15 pm appointment. Patient states that she is having surgery on 08/19/2020 and will call back after that to reschedule. LE SCHOOL TECHNOLOGY TEACHER documented in this encounter Plan of Treatment Upcoming Encounters Date Type Department Care Team (Late st Contact Info) Description 07/25/2024 10:00 AM MIDDLE SCHOOL TECHNOLOGY TEACHER [facility] [address] [place] [phone] Yosi Bustamante MD [address] [place] [address] 2L [place] [address] 07/26/2024 10:00 AM MIDDLE SCHOOL TECHNOLOGY TEACHER Appointment [facility] DIAGNOSTIC RAD [address] [place] [phone] Neri Delgado MD [address] [place] [address] 07/26/2024 10:00 AM MIDDLE SCHOOL TECHNOLOGY TEACHER [facility] [address] [place] [phone] Myra Farmer, BOTTLE WASHER MACHINE [address] [place] [address] 2L [place] [phone] 07/26/2024 11:15 AM MIDDLE SCHOOL TECHNOLOGY TEACHER Office [facility] [address] [place] [phone] Neri Delgado MD [address] [place] [address] 08/02/2024 2:20 PM MIDDLE SCHOOL TECHNOLOGY TEACHER Appointment [facility] [address] [place] [address] 08/02/2024 3:00 PM MIDDLE SCHOOL TECHNOLOGY TEACHER Office Visit [facility] - Hematology/Oncology [address] [place] [phone] Remi Beckett MD [address] [place] [phone] 08/18/2024 1:45 PM MIDDLE SCHOOL TECHNOLOGY TEACHER Office Visit [facility] [address] [place] [phone] Neri Delgado MD [address] [place] [address] documented as of this encounter Visit Diagnoses Not on filedocumented in this encounter Care Teams Ventilating Engineer Relationship Specialty Start Date End Date Taniya Grimes MD [address] [place] [address] 2L DIV OF [facility] [place] [phone] PCP - General 07/01/20 05/10/22 Marylu Marie DO [address] [place] [address] 2L DIV OF [facility] [place] [address] Resident - PCP Student Resident 06/26/20 01/11/22 documented as of this encounter
--- OUTSIDE RECORDS SUMMARY | 2024-07-23 07:28 | XMS_ITS | Encounter Summary ---
Author Organization [facility] Health Address [address] [facility] [place] [address] Care Team Providers Care Assistant Professor Of Religion Name Role Phone Marylu Marie DO Unavailable Taniya Grimes MD Primary Care Provider Reason for Referral * Radiology Services (Routine) - Closed Specialty Diagnoses / Procedures Referred By Yuan robins Referred To Contact Interventional Radiology Diagnoses Thyroid nodule Procedures US THYROID FNA Dionte Comer MD [facility] [place] [address] [facility] Ivr [address] [place] [address] Referral ID Status Reason Start Date Expiration Date Visits Re quested Visits Authorized [id number] Closed 07/26/2020 10/24/2020 1 1 SAFETY REPRESENTATIVE Encounter Details Date Type Department Care Team (Late st Contact Info) Description 07/26/2020 Orders Only [facility] RAD CSM 3L [address] [facility], [place] [address] Brandi Mock, QUALITY INTERNSHIP-SARAH [address] [facility] FIRST LEVEL [place] [address] Thyroid nodule Social History Tobacco Use Types Packs/Day Years [...] COVID-19? No / Unsure 07/02/2020 12:45 PM SITE SAFETY REPRESENTATIVE documented as of this encounter Plan of Treatment Upcoming Encounters Date Type Department Care Team (Late st Contact Info) Description 07/25/2024 10:00 AM SITE SAFETY REPRESENTATIVE Office Visit [facility] - Endocrinology [address] [place] [phone] Yosi Bustamante MD [address] [place] [address] 2L [place] [address] 07/26/2024 10:00 AM SITE SAFETY REPRESENTATIVE Appointment [facility] DIAGNOSTIC RAD [address] [place] [phone] Neri Delgado MD [address] [place] [address] 07/26/2024 10:00 AM SITE SAFETY REPRESENTATIVE Office Visit [facility] - ENT [address] [place] [phone] Myra Farmer, VEHICLE DAMAGE APPRAISER [address] [place] [address] 2L [place] [phone] 07/26/2024 11:15 AM SITE SAFETY REPRESENTATIVE Office Visit [facility] - ENT [address] [place] [phone] Neri Delgado MD [address] [place] [address] 08/02/2024 2:20 PM SITE SAFETY REPRESENTATIVE Appointment [facility] [address] [place] [address] 08/02/2024 3:00 PM SITE SAFETY REPRESENTATIVE Office Visit [facility] - Hematology/Oncology [address] [place] [phone] Remi Beckett MD [address] [place] [phone] 08/18/2024 1:45 PM SITE SAFETY REPRESENTATIVE Office Visit [facility] - ENT [address] [place] [phone] Neri Delgado MD [address] [place] [address] documented as of this encounter Results * US THYROID FNA (08/01/2020 2:41 PM SITE SAFETY REPRESENTATIVE) Anatomical Region Laterality Modality X-Ray Angiograph y 08/01/2020 2:59 PM SITE SAFETY REPRESENTATIVE Impressions 08/11/2020 6:37 PM SITE SAFETY REPRESENTATIVE Impression: Ultrasound-guided fine needle aspiration of a right thyroid nodule, as described above.The pathology report is pending at the time of this dictation. I, Dr. Juma Wright, was present and performed/supervised the entire procedure. Dictated by Molly Rao M.D. (radiology clerk) I, Dr. JUMA WRIGHT M.D. have personally reviewed and interpreted this examination/study. This report was electronically signed by JUMA WRIGHT M.D. ??on 08/11/2020 6:37 PM . Narrative 08/11/2020 6:37 PM SITE SAFETY REPRESENTATIVE History: 60 year oldfemalerecemtly found to have [...] complications associated with the procedure. Procedure Note Juma Wright MD - 08/11/2020 History: 60 year [...] is pending at the timeof this dictation. Mike, Dr. Juma Wright, was present and performed/supervised the entire procedure. Dictated by Molly Rao M.D. (radiology clerk) Dr. JUMA Mckeon M.D. have personally reviewed and interpreted this examination/study. This report was electronically signed by JUMA WRIGHT M.D. on08/11/2020 6:37 PM . Dionte Comer MD ORDERABLES documented in this encounter Visit Diagnoses Diagnosis Thyroid nodule- Primary Nontoxic uninodular goiter Thyroid nodule Nontoxic uninodular goiter documented in this encounter Care Teams Assistant Professor Of Religion Relationship Specialty Start Date End Date Taniya Grimes MD [address] 2L DIV OF [facility] [address] PCP - General 07/01/20 05/10/22 Marylu Marie DO [address] 2L [place] [address] Resident - PCP Student Resident 06/26/20 01/11/22 documented as of this encounter
--- OUTSIDE RECORDS SUMMARY | 2024-07-23 07:29 | XMS_ITS | Encounter Summary ---
Author Organization [facility] Health Address [address] [facility] [place] [address] Care Team Providers Care Content Analyst Name Role Phone Unavailable Primary Care Provider Unavailabl e Encounter Details Date Type Department Care Team (Latest Contact Info) Description 05/13/2020 Travel Social History Tobacco Use Types Packs/Day Years Used Date Smoking Tobacco: Every Day Cigarettes 0.3 51 Started: 07/22/1973 Smokeless Tobacco: [...] have Coronavirus / COVID-19? No / Unsure 05/13/2020 2:56 PM COAT CHECKER documented as of this encounter Plan of Treatment Upcoming Encounters Date Type Department Care Team (Late st Contact Info) Description 07/25/2024 10:00 AM COAT CHECKER Office Visit [facility] - Endocrinology [address] [place] [address], [place] [phone] Yosi Bustamante MD [address] [place] [address] [place] [address] 07/26/2024 10:00 AM COAT CHECKER Appointment [facility] DIAGNOSTIC RAD [address] [place] [phone] Neri Delgado MD [facility]5 [place] [address] 07/26/2024 10:00 AM COAT CHECKER Office Visit [facility] - ENT [address] [place] [phone] Myra Farmer, CAPACITY PLANNING ANALYST [address] [place] [address] [place] [phone] 07/26/2024 11:15 AM COAT CHECKER Office Visit [facility] [address] [place] [phone] Neri Delgado MD [address] [place] [address] 08/02/2024 2:20 PM COAT CHECKER Appointment [facility] [address] [place] [address] 08/02/2024 3:00 PM COAT CHECKER Office Visit [facility]ician Group - Hematology/Oncology [address] [place] [phone] Remi Beckett MD [address] [place] [phone] 08/18/2024 1:45 PM COAT CHECKER Office Visit [facility] E[facility] [address] [place] [phone] Neri Delgado MD [address] [place] [address] documented as of this encounter Visit Diagnoses Not on filedocumented in this encounter
--- OUTSIDE RECORDS SUMMARY | 2024-07-23 07:29 | XMS_ITS | Encounter Summary ---
Author Organization [facility] Health Address [address] [place] [address] Care Team Providers Care Director Of National Sales Name Role Phone Unavailable Primary Care Provider Unavailabl e Reason for Visit * Reason Onset Date Comments Appointment 05/14/2020 Encounter Details Date Type Department Care Team (Late Contact Info) Description 05/14/2020 Telephone [facility] [address] [place] [phone] Kendra Garay Appointment Social History Tobacco Use [...] COVID-19? No / Unsure 05/13/2020 2:56 PM ADAPTIVE PHYSICAL EDUCATION TEACHER documented as of this encounter Miscellaneous Notes * Telephone Encounter - Kendra Garay - 05/14/2020 3:50 PM CST Spoke with patient about appointment change from 05/16/2020 at 11:15 to 05/21/2020 at 11:00 TIVE PHYSICAL EDUCATION TEACHER documented in this encounter Plan of Treatment Upcoming Encounters Date Type Department Care Team (Late Contact Info) Description 07/25/2024 10:00 AM ADAPTIVE PHYSICAL EDUCATION TEACHER Office Visit [facility] - Endocrinology [address] [place] [phone] Yosi Bustamante MD [address] [place] [address] 2L [place] [address] 07/26/2024 10:00 AM ADAPTIVE PHYSICAL EDUCATION TEACHER Appointment [facility] DIAGNOSTIC RAD [address] [place] [phone] Neri Delgado MD [address] [place] [address] 07/26/2024 10:00 AM ADAPTIVE PHYSICAL EDUCATION TEACHER Office Visit [facility] - ENT [address] [place] [phone] Myra Farmer, AIR LIAISON AND SPECIAL STAFF [address] [place] [address] 2L [place] [phone] 07/26/2024 11:15 AM ADAPTIVE PHYSICAL EDUCATION TEACHER Office Visit [facility] - ENT [address] [place] [phone] Neri Delgado MD [address] [place] [address] 08/02/2024 2:20 PM ADAPTIVE PHYSICAL EDUCATION TEACHER Appointment [facility] [address] [place] [address] 08/02/2024 3:00 PM ADAPTIVE PHYSICAL EDUCATION TEACHER Office Visit [facility] Group - Hematology/Oncology [address] [place] [phone] Remi Beckett MD [address] [place] [phone] 08/18/2024 1:45 PM ADAPTIVE PHYSICAL EDUCATION TEACHER Office Visit [facility] - ENT [address] [place] [phone] Neri Delgado MD [address] [place] [address] documented as of this encounter Visit Diagnoses Not on filedocumented in this encounter
--- OUTSIDE RECORDS SUMMARY | 2024-07-23 07:29 | XMS_ITS | Encounter Summary ---
Author Organization [facility] Health Address [address] [facility] [place] [address] Care Team Providers Care Advertising Sales Consultant Name Role Phone Marylu Marie DO Unavailable Taniya Grimes MD Primary Care Provider Encounter Details Date Type Department Care Team (Latest Contact Info) Description 07/02/2020 Travel Social History Tobacco Use Types Packs/Day [...] COVID-19? No / Unsure 07/02/2020 12:45 PM METABOLIC SPECIALIST documented as of this encounter Plan of Treatment Upcoming Encounters Date Type Department Care Team (Late st Contact Info) Description 07/25/2024 10:00 AM METABOLIC SPECIALIST [facility] [address] [place] [address], [place] [address] Yosi Bustamante MD [address] [place] [address] [place] [address] 07/26/2024 10:00 AM METABOLIC SPECIALIST Appointment [facility] DIAGNOSTIC RAD [address] [place] [phone] Neri Delgado MD [address] [place] [address] 07/26/2024 10:00 AM METABOLIC SPECIALIST Office Visit [facility] - ENT [address] [place] [phone] Myra Farmer, HYDROMETEOROLOGY TEACHER [address] [place] [address] 2L [place] [phone] 07/26/2024 11:15 AM METABOLIC SPECIALIST [facility] [address] [place] [phone] Neri Delgado MD [address] [place] [address] 08/02/2024 2:20 PM METABOLIC SPECIALIST Appointment [facility] [address] [place] [address] 08/02/2024 3:00 PM METABOLIC SPECIALIST Office Visit [facility] - Hematology/Oncology [address] [place] [phone] Remi Beckett MD [address] [place] [phone] 08/18/2024 1:45 PM METABOLIC SPECIALIST Office Visit [facility] - ENT [address] [place] [phone] Neri Delgado MD [address] [place] [address] documented as of this encounter Visit Diagnoses Not on filedocumented in this encounter Care Teams Advertising Sales Consultant Relationship Specialty Start Date End Date Taniya Grimes MD [address] [place] [address] 2L DIV OF [place] [phone] PCP - General 07/01/20 05/10/22 Marylu Marie DO [address] [place] [address] Resident - PCP Student Resident 06/26/20 01/11/22 documented as of this encounter
--- OUTSIDE RECORDS SUMMARY | 2024-07-23 07:29 | XMS_ITS | Encounter Summary ---
Author Organization [facility] Health Address [address] [facility] [place] [address] Care Team Providers Care Frame Polisher Name Role Phone Marylu Marie DO Unavailable Taniya Grimes MD Primary Care Provider Reason for Referral * Radiology Services (Routine) - Closed Specialty Diagnoses / Procedures Referred By Contac t Referred To Contact CT Scan Diagnoses Right foot pain Procedures MRI FOOT RIGHT WO CONTRAST Samantha Nuñez PA No Information available Referral ID Status Reason Start Date Expiration Date Visits Re quested Visits Authorized [id number] Closed 06/04/2020 12/01/2020 1 1 SHAVER HELPER Reason for Visit * Radiology Services (Routine) - Closed Specialty Diagnoses / Procedures Referred By Contac t Referred To Contact CT Scan Diagnoses Right foot pain Procedures MRI FOOT RIGHT WO CONTRAST Samantha Nuñez PA No Information available Referral ID Status Reason Start Date Expiration Date Visits Re quested Visits Authorized [id number] Closed 06/04/2020 12/01/2020 1 1 Encounter Details Date Type Department Care Team (Late st Contact Info) Description 07/02/2020 12:54 PM POLE SHAVER HELPER - 07/02/2020 11:59 PM POLE SHAVER HELPER Hospital Encounter [facility] MRI [address] [place] [address] Samantha Nuñez PA No Information available Discharge Disposition: Home or Self Care Social [...] COVID-19? No / Unsure 07/02/2020 12:45 PM POLE SHAVER HELPER documented as of this encounter Medications at [...] (one) tablet by mouth at bedtime 06/25/2020 atorvastatin (LIPITOR) 40 MG tabletIndications:Hyperl ipidemia, unspecified hyperlipidemia type Take 1 tablet by mouth at bedtime 30 tablet 11 09/06/2019 09/13/2020 B Complex Vitamins (VITAMIN B COMPLEX) tablet Take by mouth DAILY. 11/19/2016 12/09/2020 cetirizine (ZYRTEC) 10 MG tabletIndications:Allerg ic rhinitis, unspecified seasonality, unspecified trigger TAKE 1 TABLET BY MOUTH EVERY DAY 30 tablet 5 03/08/2020 09/02/2020 clobetasol (TEMOVATE) 0.05 % ointment Apply to affected area 2 times daily 60 g 12/26/2019 01/13/2021 clonazePAM (KLONOPIN) 0.5 MG tablet Take 0.5 mg by mouth 2 times daily 03/29/2019 05/22/2021 Cyanocobalamin (B-12) 100 MCG Take 6 mcg by mouth DAILY. 11/19/2016 08/01/2020 fluticasone propionate (FLONASE) 50 MCG/ACT nasal spray Creola 2 sprays into each nostril 16 g 09/06/2019 04/11/2021 folic acid 400 MCG tablet Take 400 mcg by mouth DAILY. 11/19/2016 08/01/2020 gabapentin (NEURONTIN) 300 MG capsuleIndications:Prima ry osteoarthritis of left hip TAKE 1 CAPSULE BY MOUTH THREE TIMES A DAY 90 capsule 5 03/08/2020 09/06/2020 lidocaine (LMX 4) 4 % cream 06/12/2019 08/01/2020 magnesium 500 MG tablet Take 500 tablets by mouth DAILY. 11/19/2016 08/01/2020 meloxicam (MOBIC) 7.5 MG tabletIndications:Osteoa rthritis Take 1 tablet by mouth once daily Reasons: Joint Damage causing Pain and Loss of Function 60 tablet 2 02/27/2020 07/16/2020 Leggett-3 Fatty Acids (FISH OIL) 1000 MG capsule Take 1,000 mg by mouth 3 times daily with meals. 11/19/2016 05/22/2021 pantoprazole EC (PROTONIX) 40 MG tabletIndications:Gastro esophageal reflux disease with esophagitis Take 1 tablet by mouth once daily 30 tablet 5 03/25/2020 10/07/2020 Riboflavin (B-2) 100 MG Take 1.7 mg by mouth DAILY. 11/19/2016 08/01/2020 traZODone (DESYREL) 100 MG tablet 1 11/09/2016 07/24/2020 venlafaxine XR 24hr (EFFEXOR XR) 37.5 MG capsule Take 1 capsule by mouth DAILY. 11/05/2016 08/01/2020 vitamin E (TOCOPHERYL) 400 UNIT capsule Take 400 Units by mouth TID. 11/19/2016 01/13/2021 Zinc 50 MG Take 50 mg by mouth DAILY. 11/19/2016 08/01/2020 documented as of this encounter Plan of Treatment Upcoming Encounters Date Type Department Care Team (Late st Contact Info) Description 07/25/2024 10:00 AM POLE SHAVER HELPER Office Visit [facility] Physician Group - Endocrinology [address] [place] [phone] Yosi Bustamante MD [address] [place] [address] [place] [address] 07/26/2024 10:00 AM POLE SHAVER HELPER Appointment [facility] DIAGNOSTIC RAD [address] [place] [phone] Neri Delgado MD [address] [place] [address] 07/26/2024 10:00 AM POLE SHAVER HELPER Office Visit [facility] - ENT [address] [place] [phone] Myra Farmer, TOGGLE PRESS FOLDER AND FEEDER [address] [place] [address] [place] [phone] 07/26/2024 11:15 AM POLE SHAVER HELPER Office Visit [facility] - ENT [address] [place] [phone] Neri Delgado MD [address] [place] [address] 08/02/2024 2:20 PM POLE SHAVER HELPER Appointment [facility] [address] [place] [address] 08/02/2024 3:00 PM POLE SHAVER HELPER Office Visit [facility] Physician Group - Hematology/Oncology [address] [place] [phone] Remi Beckett MD [address] [place] [phone] 08/18/2024 1:45 PM POLE SHAVER HELPER Office Visit [facility] - ENT [address] [place] [phone] Neri Delgado MD [address] [place] [address] documented as of this encounter Procedures Procedure Name Priority Date/Time Associated Diagnosis Comments MRI FOOT RIGHT WO CONTRAST Routine 07/02/2020 1:48 PM POLE SHAVER HELPER Right foot pain documented in this encounter Results * MRI FOOT RIGHT WO CONTRAST (07/02/2020 1:48 PM POLE SHAVER HELPER) Anatomical Region Laterality Modality Ankle / Foot Magnetic Resonan ce 07/02/2020 2:35 PM POLE SHAVER HELPER Impressions 07/02/2020 3:19 PM POLE SHAVER HELPER IMPRESSION: 1. No fracture or stress fracture. [...] 3:19 PM . Narrative 07/02/2020 3:19 PM POLE SHAVER HELPER Exam: ??MRI FOOT RIGHT WO CONTRAST History: ??M79.671: Right foot pain . Persistent pain in the second metatarsal, bursitis versus fracture versus Aceves neuroma Comparison: Right foot Radiographs dated 04/02/2020 TECHNIQUE: Images were obtained in the axial, sagittal, and coronal planes using T1 and fluid sensitive fat suppressed sequences without contrast. The [id number] was set to evaluate the area of [...] sensitive fat suppressed sequences without contrast. The temim-kh-dadr was set to evaluate the area of [...] 3:19 PM . Samantha FRANKS MR ORDERABLES documented in this encounter Visit Diagnoses Diagnosis Right foot pain Pain in limb documented in this encounter Care Teams Frame Polisher Relationship Specialty Start Date End Date Taniya Grimes MD [address] 2L DIV OF [facility] [place] [address] PCP - General 07/01/20 05/10/22 Marylu Marie DO [address] 2L DIV OF [facility] [place] [address] Resident - PCP Student Resident 06/26/20 01/11/22 documented as of this encounter
--- OUTSIDE RECORDS SUMMARY | 2024-07-23 07:29 | XMS_ITS | Encounter Summary ---
Author Organization [facility] Health Address [address] [place] [address] Care Team Providers Care Lip And Gate Builder Name Role Phone Marylu Marie DO Unavailable Taniya Grimes MD Primary Care Provider Reason for Visit * Reason Comments Refill Request Encounter Details Date Type Department Care Team (Late Contact Info) Description 07/15/2020 Refill [facility] - Orthopedics [address] [place] [phone] Cesar Brooks MD [address] [phone] Refill Request Social History Tobacco Use Types [...] COVID-19? No / Unsure 07/02/2020 12:45 PM CUT FILER documented as of this encounter Plan of Treatment Upcoming Encounters Date Type Department Care Team (Late Contact Info) Description 07/25/2024 10:00 AM CUT FILER Office Visit [facility] - Endocrinology [address] [place] [phone] Yosi Bustamante MD [address] [place] [address] 2L [place] [address] 07/26/2024 10:00 AM CUT FILER Appointment [facility] [address] [place] [phone] Neri Delgado MD [address] [place] [address] 07/26/2024 10:00 AM CUT FILER Office Visit [facility] - ENT [address] [place] [phone] Myra Farmer, ZINC SKIMMER [address] [place] [address] 2L [place] [phone] 07/26/2024 11:15 AM CUT FILER Office Visit [facility] - ENT [address] [place] [phone] Neri Delgado MD [address] [place] [address] 08/02/2024 2:20 PM CUT FILER Appointment [facility] [address] [place] [address] 08/02/2024 3:00 PM CUT FILER Office Visit [facility] - Hematology/Oncology [address] [place] [phone] Remi Beckett MD [address] [place] [phone] 08/18/2024 1:45 PM CUT FILER Office Visit [facility] ENT [address] [place] [phone] Neri Delgado MD [address] [place] [address] documented as of this encounter Visit Diagnoses Not on filedocumented in this encounter Care Teams Lip And Gate Builder Relationship Specialty Start Date End Date Taniya Grimes MD [address] [facility] 2L DIV OF [facility] [place] [address] PCP - General 07/01/20 05/10/22 Marylu Marie DO [address] [facility] 2L DIV OF [facility] [place] [address] Resident - PCP Student Resident 06/26/20 01/11/22 documented as of this encounter
--- OUTSIDE RECORDS SUMMARY | 2024-07-23 07:29 | XMS_ITS | Encounter Summary ---
Author Organization [facility] Health Address [address] [facility] [place] [address] Care Team Providers Care Tank Cleaning Supervisor Name Role Phone Marylu Marie DO Unavailable [phone] Taniya Grimes MD Primary Care Provider Reason for Visit * Reason Onset Date Comments Results 07/18/2020 Encounter Details Date Type Department Care Team (Late st Contact Info) Description 07/18/2020 Telephone [facility] [address] [place] [address], [place] [phone] Marylu Bajwa APRN-CNP [address] [place] [address] [place] [address] Results Social History Tobacco Use Types Packs/Day [...] COVID-19? No / Unsure 07/02/2020 12:45 PM CAR COOPER documented as of this encounter Miscellaneous Notes * Telephone Encounter - Marylu Bajwa APRN-CNP - 07/18/2020 2:39 PM CAR COOPER Called patient to review results of MRI right foot. She states she is still having pain despite treatment in the short ACB. She has been wearing crocs lately. I recommend she go back into the boot and follow up with Dr. Taylor to review her MRI and discuss surgical vs conservative treatment options. Patient verbalized understanding and agrees with plan. She was transferred to our customer service receptionist, Vianey, to schedule her follow up with Dr. Taylor. COOPER documented in this encounter Plan of Treatment Upcoming Encounters Date Type Department Care Team (Late st Contact Info) Description 07/25/2024 10:00 AM CAR COOPER Office Visit [facility] - Endocrinology [address] [place] [phone] Yosi Bustamante MD [address] [place] [address] 2L [place] [address] 07/26/2024 10:00 AM CAR COOPER Appointment [facility] [address] [place] [phone] Neri Delgado MD [address] [place] [address] 07/26/2024 10:00 AM CAR COOPER Office Visit [facility]ician Group - ENT [address] [place] [phone] Myra Farmer, EVENT MANAGER [address] [place] [address] 2L [place] [phone] 07/26/2024 11:15 AM CAR COOPER Office Visit [facility] - ENT [address] [place] [phone] Neri Delgado MD [address] [place] [phone] 08/02/2024 2:20 PM CAR COOPER Appointment [facility] [address] [place] [address] 08/02/2024 3:00 PM CAR COOPER Office Visit [facility] - Hematology/Oncology [address] [place] [phone] Remi Beckett MD [address] [place] [address] 08/18/2024 1:45 PM CAR COOPER Office Visit [facility]NT [address] [place] [phone] Neri Delgado MD [address] [place] [phone] documented as of this encounter Visit Diagnoses Not on filedocumented in this encounter Care Teams Tank Cleaning Supervisor Relationship Specialty Start Date End Date Taniya Grimes MD [address] [place] [address] 2L DIV OF [facility] [place] [address] PCP - General 07/01/20 05/10/22 Marylu Marie DO [address] [place] [address] 2[place] [address] Resident - PCP Student Resident 06/26/20 01/11/22 documented as of this encounter
--- OUTSIDE RECORDS SUMMARY | 2024-07-23 07:29 | XMS_ITS | Encounter Summary ---
Author Organization [facility] Health Address [address] [facility] [place] [address] Care Team Providers Care Urgent Care Name Role Phone Marylu Marie DO Unavailable Taniya Grimes MD Primary Care Provider Reason for Visit * Reason Comments Establish Care Neck Mass Results Same Day CT Scan Encounter Details Date Type Department Care Team (Late st Contact Info) Description 07/24/2020 3:00 PM PULP MILL OPERATOR Office Visit [facility] Otolaryngology [address] [place] [phone] Dionte Comer MD [address] [place] [address] [place] [address] Tracheal mass (Primary Dx); Hoarseness; Complete paralysis of right vocal cord; Lymphadenopathy of head and neck region; Cigarette nicotine dependence without complication Social History Tobacco Use Types Packs/Day Years [...] COVID-19? No / Unsure 07/02/2020 12:45 PM PULP MILL OPERATOR documented as of this encounter Last Filed Vital Signs Vital Sign Reading Time Taken Comments Blood Pressure 117/56 07/24/2020 3:29 PM PULP MILL OPERATOR Pulse 76 07/24/2020 3:29 PM PULP MILL OPERATOR Temperature - - Respiratory Rate - - Oxygen Saturation - - Inhaled Oxygen Concentration - - Weight 70.2 kg (154 lb 12.8 oz) 07/24/2020 3:29 PM PULP MILL OPERATOR Height 157.5 cm (5' 2) 07/24/2020 3:29 PM PULP MILL OPERATOR Body Mass Index 28.31 07/24/2020 3:29 PM PULP MILL OPERATOR documented in this encounter Patient Instructions * Patient Instructions* Jacoby Jay - 07/24/2020 2:50 PM PULP MILL OPERATOR Thank you for visiting [facility] Otolaryngology - Head & Neck [...] it???s time for you to contact us. ??? To MAKE - CHANGE - CANCEL an office appointment If you become ill, need to be seen before your next scheduled appointment, or need to cancel or reschedule an appointment, please call our office at [phone] Wednesday through Wednesday from 8:30 am to4:30 pm. You can also request a routine appointment through your [email or web address] account. ??? Prescription Refills Contact your pharmacy to request all refills. The pharmacy will need to fax the request to us at . Please allow a minimum of 48-72 hours for your prescription to be completed. Your pharmacy will notify you when your prescription is ready to be picked up. ??? Medical Emergency / After Hours Contact Information If you have a medical emergency, please call 911 or go to the nearest emergency room. For urgent medical calls which cannot wait until the office opens, please call the medical exchangeat and ask the oil well perforator operator to page the ENT physician apprenticeship consultant. *Caller ID blocking service will need to be turned off for your call to be returned. We also specialize in Hearing Aids, Allergy testing, swallowing disorders, voice problems, cancer diagnosis, and so much more. Visit our website at [email or web address] for information about our practice and an interactive health encyclopedia. MILL OPERATOR documented in this encounter Progress Notes * Vince Willingham MD - 07/24/2020 3:45 PM CST Otolaryngology Clinic Note Date: 07/24/2020 Patient Name: Brisa Hogan : 1960 Chief Complaint Patient presents with ??? Establish Care ??? Neck Mass ??? Results Same Day CT Scan Treatment History: 03/24: biopsied thyroid nodule measuring 1.8 x 1.5 x 1.3cm, reportedly negative per patient 07/25: re-demonstration of paratracheal mass on CT PE at OSH of 2.8 x 2.6cm with interval development of dysphagia and hoarseness HPI: Brisa Hogan is a 59 year old female with PMH s/f lumbar DDD, osteoarthritis, mood disorder, and HLD who presents for evaluation of thyroid nodule and left neck nodule. Voice comes and goes, started noticing voice change around the first of the year. Also notes funny cough and has aspiration of thin liquids. ROS: A comprehensive review of systems was performed with pertinent findings as documented in the HPI, while the patient also reports: Head: headaches, Cig withdraws Neck: pain, stiffness, swelling Current Outpatient Medications Medication Sig Dispense Refill ??? albuterol HFA (PROVENTIL;VENTOLIN;PROAIR) 108 (90 Base) [...] 0 ??? clonazePAM (KLONOPIN) 0.5 MG tablet ??? Cyanocobalamin (B-12) 100 MCG Take 6 mcg by mouth DAILY. ??? famotidine (PEPCID) 20 MG tablet Take 20 mg by mouth 2 times daily as needed ??? fluticasone propionate (FLONASE) 50 MCG/ACT nasal spray Hornick 2 sprays into each nostril 16 g 0 ??? folic acid 400 MCG tablet Take 400 mcg by mouth DAILY. ??? gabapentin (NEURONTIN) 300 MG capsule TAKE 1 CAPSULE BY MOUTH THREE TIMES A DAY 90 capsule 5 ??? lidocaine (LMX 4) 4 % cream ??? magnesium 500 MG tablet Take 500 tablets by mouth DAILY. ??? meloxicam (MOBIC) 7.5 MG tablet TAKE 1 TABLET BY MOUTH EVERY DAY 60 tablet 2 ??? montelukast (SINGULAIR) 10 MG tablet Take 10 mg by mouth once daily ??? [place]-3 Fatty Acids (FISH OIL) 1000 MG capsule Take 1,000 mg by mouth 3 times daily with meals. ??? pantoprazole EC (PROTONIX) 40 MG tablet Take 1 tablet by mouth once daily 30 tablet 5 ??? PARoxetine (PAXIL) 40 MG tablet 2 ??? Riboflavin (B-2) 100 MG Take 1.7 mg by mouth DAILY. ??? traZODone (DESYREL) 50 MG tablet Take 50 mg by mouth at bedtime ??? venlafaxine XR 24hr (EFFEXOR XR) 37.5 MG capsule Take 1 capsule by mouth DAILY. ??? vitamin E (TOCOPHERYL) 400 UNIT capsule Take 400 Units by mouth TID. ??? Zinc 50 MG Take 50 mg by mouth DAILY. No current facility-administered medications for this visit. Facility-Administered Medications Ordered in Other Visits Medication Dose Route Frequency Provider Last Rate Last Admin ??? iopamidol (ISOVUE 370) 76 % contrast Intravenous Contrast - Once Nolvia Chun APRN-ORDNANCE EQUIPMENT WORKER 100 mLat 07/24/20 1431 ALLERGIES: Patient has no known allergies. Past Medical History: Diagnosis Date ??? Anxiety and depression ??? Degenerative disc disease, lumbar ??? HLD (hyperlipidemia) ??? Osteoarthritis of one hip, left ??? Psoriasis Past Surgical History: Procedure Laterality Date ??? Bilateral Tubal Ligation (BTL) ??? Section ??? ENDOSCOPY, COLON, DIAGNOSTIC no polyp ??? Polypectomy cervical Family History Problem Relation [...] 07/22/1973 ??? Smokeless tobacco: Never Used Substance and Sexual Activity ??? Alcohol use: No ??? Drug use: Not Currently Types: Cocaine, Marijuana Comment: ??? Sexual activity: Yes Partners: Male Other Topics Concern ??? Not on file Social History Narrative Lives with , also current tobacco user, has COPD. 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 as calculated from the following: Height as of this encounter: 5' 2 (1.575 m). Weight as of this encounter: 154 lb 12.8 oz (70.2 kg). General: NAD, hoarse Eyes: EOMI, normal conjunctivae and lids Ears: EACs clear, TM intact bilaterally with normal landmarks Nose: Moist nasal mucosa bilaterally, no masses or lesions noted, no drainage Oral Cavity, Oropharynx: Fair dentition, no lesions/masses/ulcerations noted, symmetric tongue mobility Neck: Left level III nodule palpable, possible right-sided node in level II Neuro: CN 2-12 grossly intact bilaterally Resp: Comfortable on room air, no increased work of breathing or stridor CV: Extremities WWP Psych: appropriate mood and affect Procedure Note Endoscopy Type: Laryngoscopy without stroboscopy Endoscope: Flexible 4mm Scope Anesthesia: Lidocaine 2% and Neosynephrine 1/2% (nasal) and Lidocaine 1% with Epinphrine 1:100,000 2-3 ml (tracheal-percutaneous thru cricothyroid membrane using 25G 5/8 needle) Procedure Details: The patient was sitting upright in a chair with the head in a slightly anterior sniffing position. The topical anesthesia was administered and then adequate time was allowed for an anesthetic effect.The endoscope was passed thru the nasal cavity with the tongue retracted anteriorly. The tip of theendoscope was positioned in the oropharynx which allowed [...] mass at the posterior wall Condition: Stable. Patient tolerated procedure well. Complications: None I was present for the entirety of the procedure. Pathology IMPRESSION: ?? 1. A mildly enlarged left [...] without and with contrast to further evaluate. Assessment: Brisa Hogan is a 59 year old female with thyroid mass concerning for poorly differentiated thyroid cancer, likely staging [id number], overall stage IVb. Plan: Definitive treatment of this disease is most likely to be accomplished with primary surgical intervention with likely subsequent adjuvant radiation and/or chemotherapy. Surgery would most likely include total thyroidectomy, tracheal resection and re-anastomosis, and bilateral neck dissection plus central neck dissection. The risks, benefits, and alternatives of the proposed treatments were discussed, including the risk of pain, bleeding, infection, damage to surrounding structures including therecurrent laryngeal nerve and other important neurovascular structures, and need for further interventions. All of the patient's questions were answered and she has made an informed decision to proceed with surgery. We also had the patient meet with Myra Ignacio, who will be working closely with them after surgery to optimize speech and swallowing outcomes, and Nolvia Chun, who will also be working with the patient as they proceed through their course of therapy. Given the current smoking status for this patient, I attempted to relate the importance of smoking cessation. We discussed the risks for upper aerodigestive cancers as well as lung and other malignancies. I also explained that many people require several, even more than a dozen, attempts before ultimately being free of tobacco products. She relates that she is down to about two cigarettes per dayand voices understanding of the importance of quitting completely before attempt of a tracheal resection and re-anastomosis to optimize wound healing. Vince Willingham MD Otolaryngology-Head and Neck Surgery 07/24/20 MILL OPERATOR Associated attestation - Dionte Comer MD - 07/24/2020 11:38 PM PULP MILL OPERATOR I saw and examined the patient with/after Dr. Willingham on 07/24/2020. I have reviewed the history, physical, and imaging (when appropriate), and I confirm the history, exam, assessment and plan. Please see the above note for further details. In addition, I note: Additional history: As documented, she had some mild discomfort and with subsequent evaluated with a fine-needle aspiration was reportedly nondiagnostic or atypia of undetermined significance, I cannot see that result currently. However, she subsequently developed breathy voice, voice breaks, aspiration of liquids, we can cough. She denies significant dysphagia of solids. No palpable neck masses. She underwent a CT contrast today. Exam addenda: As documented, she has palpable neck disease and left level V and right level III. She has mildly breathy dysphonic with a slightly weakened cough. She has no intraoral lesions or oral mucosal lesions of note despite her smoking history. I independently reviewed her CT scan which demonstrates intraluminal right sided and posterior lateral neck soft tissue mass with ill-defined borders and potential invasion of the lateral wall of theesophagus as well. She has tony disease bilaterally in level III on the right and level 4/5 of theleft. No definitive central neck disease. I was present for and supervised the endoscopic examination which demonstrates lateralized paralysis of the right true vocal cord, no other laryngeal lesion, and transtracheal injection allowed us toevaluate that there is a soft tissue mass below the level of the cricoid cartilage that is hyperemic and concerning for lisa invasion. Assessment/Plan: As documented, this is likely advanced thyroid malignancy. - I would like for her to obtain a modified barium swallow to see if she has compensatory maneuvers, as well as the potential of intraluminal involvement of the esophagus - she would need the aforementioned surgery as documented by Dr. Willingham - nearly 5 minutes on the importance of smoking cessation for the success of the surgery, particularly the tracheal resection portion of the procedure - if we can obtain an expedited repeat fine-needle aspiration, potentially ultrasound-guided of thelateral neck tony disease, this would confirm the diagnosis Edmar Comer MD * Jacoby Jay - 07/24/2020 2:50 PM CST Review of Systems Brisa reports the following:Head: headaches, Cig withdraws Neck: pain, stiffness, swelling MILL OPERATOR documented in this encounter Procedure Notes * Vince Willingham MD - 07/24/2020 5:22 PM CSTAssociated Order(s): PROC ENDOSCOPY-LARYNX Procedure(s): GA LARYNGOSCOPY,FLEX FIBER,DIAGNOSTIC Pre-Procedure Diagnose(s): Hoarseness Procedure Note Endoscopy Type: Laryngoscopy without stroboscopy Endoscope: Flexible 4mm Scope Anesthesia: Lidocaine 2% and Neosynephrine 1/2% (nasal) and Lidocaine 1% with Epinphrine 1:100,000 2-3 ml (tracheal-percutaneous thru cricothyroid membrane using 25G 5/8 needle) Procedure Details: The patient was sitting upright in a chair with the head in a slightly anterior sniffing position. The topical anesthesia was administered and then adequate time was allowed for an anesthetic effect.The endoscope was passed thru the nasal cavity with the tongue retracted anteriorly. The tip of theendoscope was positioned in the oropharynx which allowed [...] mass at the posterior wall Condition: Stable. Patient tolerated procedure well. Complications: None I was present for the entirety of the procedure. MILL OPERATOR documented in this encounter Plan of Treatment Upcoming Encounters Date Type Department Care Team (Late st Contact Info) Description 07/25/2024 10:00 AM PULP MILL OPERATOR [facility] - Endocrinology [address] [place] [phone] Yosi Bustamante MD [address] [place] [address] [place] [address] 07/26/2024 10:00 AM PULP MILL OPERATOR Appointment [facility] [address] [place] [phone] Neri Delgado MD [address] [place] [address] 07/26/2024 10:00 AM PULP MILL OPERATOR Office Visit [facility] Group - ENT [address] [place] [phone] Myra Farmer, FOOD SERVICE DIRECTOR [address] [place] [address] [place] [phone] 07/26/2024 11:15 AM PULP MILL OPERATOR Office Visit [facility] - ENT [address] [place] [phone] Neri Delgado MD [address] [place] [address] 08/02/2024 2:20 PM PULP MILL OPERATOR Appointment [facility] [address] [place] [address] 08/02/2024 3:00 PM PULP MILL OPERATOR Office Visit [facility] Group - Hematology/Oncology [address] [place] [phone] Remi Beckett MD [address] [place] [phone] 08/18/2024 1:45 PM PULP MILL OPERATOR Office Visit [facility] Group - ENT [address] [place] [phone] Neri Delgado MD [address] [place] [phone] documented as of this encounter Procedures Procedure Name Priority Date/Time Associated Diagnosis Comments GA LARYNGOSCOPY,FLEX FIBER,DIAGNOSTIC Routine 07/24/2020 5:22 PM PULP MILL OPERATOR Hoarseness documented in this encounter Results * SARS-COV-2 (COVID-19) IN HOUSE (08/15/2020 11:01 AM PULP MILL OPERATOR) COVID-19 PCR Not detected Not detected 08/15/2020 4:50 PM PULP MILL OPERATOR [facility] Microbiology SPECIMEN FROM NASOPHARYNGEAL STRUCTURE / Unknown Collection / Unknown 08/15/2020 11:01 AM PULP MILL OPERATOR 08/15/2020 11:01 AM PULP MILL OPERATOR Narrative [facility] - 08/15/2020 4:50 PM PULP MILL OPERATOR This nucleic acid amplification assay performance was validated by [facility]. This test has been [...] Comer MD LAB - [facility] [address] [place] [address], [facility] [phone] * GA LARYNGOSCOPY,FLEX FIBER,DIAGNOSTIC (07/24/2020 5:22 PM PULP MILL OPERATOR) Narrative Vince Willingham MD - 07/24/2020 5:22 PM PULP MILL OPERATOR Vince Willingham MD ? 07/24/2020 11:38 PM [...] Dionte Comer MD PROCEDURE/MINOR SURG ICAL ORDERABLES documented in this encounter Visit Diagnoses Diagnosis Tracheal mass- Primary Swelling, mass, 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 Hoarseness Dysphonia Complete paralysis of right vocal cord Lymphadenopathy of head and neck region Cigarette nicotine dependence without complication Tobacco use disorder documented in this encounter Care Teams Urgent Care Relationship Specialty Start Date End Date Taniya Grimes MD [address] 2L DIV OF [facility] [place] [address] PCP - General 07/01/20 05/10/22 Marylu Marie DO [address] 2L DIV OF [facility] [place] [address] Resident - PCP Student Resident 06/26/20 01/11/22 documented as of this encounter
--- OUTSIDE RECORDS SUMMARY | 2024-07-23 07:29 | XMS_ITS | Encounter Summary ---
Author Organization [facility] Health Address [address] [place] [address] Care Team Providers Care Shop Laborer Name Role Phone NikepMarylu jerry DO Unavailable [phone] Taniya Grimes MD Primary Care Provider Reason for Referral * Radiology Services (Routine) - Closed Specialty Diagnoses / Procedures Referred By Yuan robins Referred To Contact CT Scan Diagnoses Neck mass Procedures CT NECK SOFT TISSUE W Nolvia Tam APRN-CNP [address] [place] [address] [facility] [address] [place] [address] Referral ID Status Reason Start Date Expiration Date Visits Re quested Visits Authorized [id number] Closed 07/17/2020 01/13/2021 1 1 CAL SECRETARY TEACHER Encounter Details Date Type Department Care Team (Late st Contact Info) Description 07/15/2020 Orders Only [facility] [address] [place] [address] Nolvia Chun APRN-CNP [address] [place], [place] [phone] Neck mass Social History Tobacco Use Types [...] COVID-19? No / Unsure 07/02/2020 12:45 PM MEDICAL SECRETARY TEACHER documented as of this encounter Plan of Treatment Upcoming Encounters Date Type Department Care Team (Late st Contact Info) Description 07/25/2024 10:00 AM MEDICAL SECRETARY TEACHER Office Visit [facility] - Endocrinology [address] [place] [phone] Yosi Bustamante MD [address] [place] [address] 2L [place] [address] 07/26/2024 10:00 AM MEDICAL SECRETARY TEACHER Appointment [facility] DI[facility]IC RAD [address] [place] [address] Neri Delgado MD [address] [place] [address] 07/26/2024 10:00 AM MEDICAL SECRETARY TEACHER Office Visit [facility] - ENT [address] [place] [phone] Myra Farmer, PORTABLE MACHINE SANDER [address] [place] [address] 2L [place] [address] 07/26/2024 11:15 AM MEDICAL SECRETARY TEACHER Office Visit [facility] - ENT [address] [place] [phone] Neri Delgado MD [address] [place] [address] 08/02/2024 2:20 PM MEDICAL SECRETARY TEACHER Appointment [facility] [address] [place] [address] 08/02/2024 3:00 PM MEDICAL SECRETARY TEACHER Office Visit [facility] - Hematology/Oncology [address] [place] [phone] Remi Beckett MD [address] [place] [address] 08/18/2024 1:45 PM MEDICAL SECRETARY TEACHER Office Visit [facility] - ENT [address] [place] [phone] Neri Delgado MD [address] [place] [address] documented as of this encounter Results * CT NECK SOFT TISSUE W CONT (07/24/2020 2:46 PM MEDICAL SECRETARY TEACHER) Anatomical Region Laterality Modality Head Computed Tomogra phy 07/24/2020 2:54 PM MEDICAL SECRETARY TEACHER Impressions 07/24/2020 3:16 PM MEDICAL SECRETARY TEACHER IMPRESSION: 1. A mildly enlarged left level [...] evaluate. This report was electronically signed by WILLIAM QIU M.D. ??on 07/24/2020 3:16 PM . Narrative 07/24/2020 3:16 PM MEDICAL SECRETARY TEACHER EXAMINATION: ??Computed tomography (CT) of the neck with contrast HISTORY: R22.1: Neck mass TECHNIQUE: CT of the neck was performed following the uneventful administration of100 mL Isovue-370 intravenous contrast according to standard protocol. FINDINGS: No prior study is available for comparison at the time of this dictation. There is an irregular hypoenhancing nodule in the right lobe of the thyroid gland, measuring 2.4 x 1.8 cm. There is mild mass effect on and protrusion into the upper trachea. This nodule has been previously biopsied with a sonographic guided fine needle aspiration on 07/19/2019. Please correlate with the to the pathological result. There is a mildly enlarged left level 3 lymph node, measuring approximately 2.8 x 2.0 cm (series 4 image 75). The muscles of the neck appear normal. The cervical internal carotid arteries and internal jugular veins appear normal. Fascial planes are preserved and the deep spaces of the neck appear normal. The visualized airway appears normal. The visualized portions of the posterior fossa and brain appear normal. There is cervical degenerative disc and joint disease. The visualized orbits and paranasal sinuses appear normal. A calcified nodule is noted in the right upper lobe of the lung. There is a 1 cm ill-defined enhancing lesion in the posterior aspect of the right putamen. No mass effect identified. Procedure Note William Qiu MD - 07/24/2020 EXAMINATION: Computed tomography (CT) of the neck with contrast HISTORY: R22.1: Neck mass TECHNIQUE: CT of the neck was performed following the uneventful administration of100 mL Isovue-370 intravenous contrast according to standard protocol. FINDINGS: No prior study is available for comparison at the time of this dictation. There is an irregular hypoenhancing nodule in the right lobe of the thyroid gland, measuring 2.4 x 1.8 cm. There is mild mass effect on and protrusion into the upper trachea. This nodule has been previously biopsied with a sonographic guided fine needle aspiration on 07/19/2019. Please correlate with the to the pathological result. There is a mildly enlarged left level 3 lymph node, measuring approximately 2.8 x 2.0 cm (series 4 image 75). The muscles of the neck appear normal. The cervical internal carotid arteries and internaljugular veins appear normal. Fascial planes are preserved and the deep spaces of the neck appear normal. The visualized airway appears normal. The visualized portions of the posterior fossa and brain appear normal.There is cervical degenerative disc and joint disease. The visualized orbitsand paranasal sinuses appear normal. A calcified nodule is noted in the right upper lobe of the lung. There is a 1 cm ill-defined enhancing lesion in the posterior aspect of the right putamen. No mass effect identified. IMPRESSION: 1. A mildly enlarged left level 3 lymph node measuring 1.4 x 2.2 cm.This is indeterminant but can be malignant. 2. A 2.8 x 2.0 cm hypoattenuating nodule in the right lobe of thethyroid gland. It causes mass effect on the right posterior aspect of the upper trachea. These nodule has previously been biopsied with a sonogramguided thyroid fine needle aspiration. However, this may have increased insize. Given the presence of an enlarged cervical lymph node, thyroid sonogram evaluation with possible rebiopsy is recommended to exclude malignancy. 3. Incidental note of a 1 cm-year-old defined enhancing lesion in the posterior right putamen without mass effect. Recommend a dedicated brain MRI without and with contrast to further evaluate. This report was electronically signed by WILLIAM QIU M.D. on 07/24/2020 3:16 PM . Nolvia Chun CARPENTER LABOR SUPERVISOR-REGISTERED DIETICIAN CT ORDERABLES documented in this encounter Visit Diagnoses Diagnosis Neck mass- Primary Swelling, mass, or lump in head and neck Neck mass Swelling, mass, or lump in head and neck documented in this encounter Care Teams Shop Laborer Relationship Specialty Start Date End Date Taniya Grimes MD [address] 2L DIV OF [facility] [place] [address] PCP - General 07/01/20 05/10/22 Marylu Marie DO [address] 2L DIV OF [facility] [place] [address] Resident - PCP Student Resident 06/26/20 01/11/22 documented as of this encounter
--- OUTSIDE RECORDS SUMMARY | 2024-07-23 07:29 | XMS_ITS | Encounter Summary ---
Author Organization [facility] Health Address [address] [facility] [place] [address] Care Team Providers Care Size Painter Name Role Phone Marylu Marie DO Unavailable Taniya Grimes MD Primary Care Provider Reason for Visit * Reason Comments Abnormal Imaging Encounter Details Date Type Department Care Team (Late st Contact Info) Description 07/11/2020 3:30 PM LIFESTYLE DIRECTOR Video Visit [facility] General Internal Medicine [address] [place] [address], [place] [phone] Marylu Marie DO [address] [place] [address] OF [facility] [place] [address] Thyroid nodule ; Hemoptysis; Tobacco use disorder Social History Tobacco Use Types Packs/Day Years [...] COVID-19? No / Unsure 07/02/2020 12:45 PM LIFESTYLE DIRECTOR documented as of this encounter Progress Notes * Marylu Marie DO - 07/11/2020 1:05 PM CST Telemedicine Note Today's visit was conducted virtually due to COVID-19 countermeasures. The patient has given verbalconsent to have today's visit conducted by this same means with treatment provided remotely. The patient verbally consents to the billing and collection practices of the provider's medical group. Patient location: Home This encounter was performed using: audio Reason for not using video for visit: patient does not have the technology Total time spent on visit on date of encounter is: 35 minutes with 30 minutes spent in medical discussion Assessment & Plan Brisa is a 59 year old female who has completed a telemedicine encounter regardin. Thyroid nodule Medical records obtained from [facility] and under media tab of patient's chart. Previously biopsied nodule measuring 1.8 x 1.5 x 1.3cm in 03/2020, now with noted paratracheal mass on CT PE atOSH of 2.8 x 2.6cm as of 07/2020. Interval development of dysphagia and hoarseness. - Personally spoke with coronary care unit nurse ENT to discuss case. Their office will call patient to set up follow up next week and determine need for further imaging at that time. - Counseled patient regarding worsening symptoms including respiratory distress, progressive hemoptysis, or orthopnea at which time she should proceed to ED for further evaluation. 2. Hemoptysis Improving. Denies chest pain. No PE seen on imaging. Counseling on worsening symptoms and when to seek emergency care. 3. Tobacco use disorder 10+ pack year smoking. Counseling on continued tobacco cessation, congratulated on progress. Immunizations - Tdap: 02/2016 - Influenza: 03/2019 - PCV13: 06/2018 Colorectal cancer screening: will need to discuss at future visit, patient reports this has been completed in previous 10 years Lung cancer screenin07/17/2019, Lung-RADS 1 Hep C: nonreactive 03/2020 Lipid screening: WNL 03/2020 DM screening: HgA1c 5.5 03/2020 ?? Female specific HCM Cervical cancer screenin11/2019, negative for HPV or malignancy Breast ca screening: completed yesterday per patient, results pending Plan of care was discussed with attending physician, Dr. Grimes. Return to clinic as previously scheduled. Subjective Chief Complaint Patient presents with ??? Abnormal Imaging Brisa Hogan is a 59 year old female with PMHx of lumbar DDD, osteoarthritis, mood disorder, and HLD presenting to [facility] for follow up. Acute concerns include abnormality seen on CXR imaging during recent ED visit. On 07/05 she developed hemoptysis, small clot when coughing. Went to [facility] ED where they performed CXR which showed mass on thyroid. She expressed she had known thyroid nodule which was recently biopsied and found to be benign follicular nodule. She received prednisone in the ED, and was discharged with albuterol and montelukast. Now feels as if something is pressing on the esophagus. Associated with dysphagia to liquids and voice hoarseness developing today. Denies SOB, chest pain. R side of neck is somewhat sore and associated with mild right sided NG. Ms. Hogan provided verbal consent to obtain records from [facility] for ER visit dated 07/05. Of note was tested for COVID on 06/26 which was negative - symptoms included coughing, rhinorrhea, and NG. No smoking since Thursday 07/06. A comprehensive 10 system ROS was reviewed. Pertinent positives and negatives are included in HPI or PMH. The remainder of the 10 system ROS was negative. Objective General: Hoarse voice, unable to conduct further examination over the phone US Thyroid 03/07/2020 There are 3 nodules in the right [...] TR 4 nodule, recommend short-term follow-up (image [id number]). The second nodule is well-circumscribed, hypoechoic, solid nodule, measuring 0.6 x 0.6 x 0.3 cm; this is a TR 4 nodule, which is not suspicious (image [id number]). ?? The isthmus is mildly thickened. Vascularity of the thyroid is normal. FNA 04/18/2020 Specimen Adequacy Adequate cellularity for evaluation. Final Diagnosis Thyroid nodule, right, US-FNA: - Benign - Consistent with benign follicular nodule Marylu Marie DO STYLE DIRECTOR Associated attestation - Taniya Grimes MD - 07/11/2020 10:43 PM LIFESTYLE DIRECTOR The supervising physician and/or patient is not physically present with the resident and the supervising physician is concurrently monitoring the patient care through appropriate telecommunication technology. Attending Physician Attestation I spoke with the patient with the resident, and I agree with the resident's history, and assessmentand plan. Date of Service: 07/11/2020 Taniya Grimes MD documented in this encounter Plan of Treatment Upcoming Encounters Date Type Department Care Team (Late st Contact Info) Description 07/25/2024 10:00 AM LIFESTYLE DIRECTOR Office Visit [facility] Physician Group - Endocrinology [address] [place] [phone] Yosi Bustamante MD [address] [place] [address] 2L Div [place] [address] 07/26/2024 10:00 AM LIFESTYLE DIRECTOR Appointment [facility] DIAGNOSTIC RAD [address] [place] [phone] Neri Delgado MD [address] [place] [address] 07/26/2024 10:00 AM LIFESTYLE DIRECTOR Office Visit [facility] - ENT [address] [place] [phone] Myra Farmer, BRICK PAVER [address] [place] [address] 2L [place] [phone] 07/26/2024 11:15 AM LIFESTYLE DIRECTOR [facility] [address] [place] [phone] Neri Delgado MD [address] [place] [address] 08/02/2024 2:20 PM LIFESTYLE DIRECTOR Appointment [facility] [address] [place] [address] 08/02/2024 3:00 PM LIFESTYLE DIRECTOR Office Visit [facility] Physician Group - Hematology/Oncology [address] [place] [phone] Remi Beckett MD [address] [place] [phone] 08/18/2024 1:45 PM LIFESTYLE DIRECTOR Office Visit [facility] Physician Group - ENT [address] [place] [phone] Neri Delgado MD [address] [place] [address] documented as of this encounter Visit Diagnoses Diagnosis Thyroid nodule- Primary Nontoxic uninodular goiter Hemoptysis Tobacco use disorder documented in this encounter Care Teams Size Painter Relationship Specialty Start Date End Date Taniya Grimes MD [address] [place] [address] 2L DIV OF [facility] [place] [address] PCP - General 07/01/20 05/10/22 Marylu Marie DO [address] [place] [address] 2L DIV OF [facility] [place] [address] Resident - PCP Student Resident 06/26/20 01/11/22 documented as of this encounter
--- OUTSIDE RECORDS SUMMARY | 2024-07-23 07:29 | XMS_ITS | Encounter Summary ---
Author Organization [facility] Health Address [address] [place] [address] Care Team Providers Care Repair Department Supervisor Name Role Phone DietrichMarylu jerry DO Unavailable Taniya Grimes MD Primary Care Provider Reason for Referral * Radiology Services (Routine) - Closed Specialty Diagnoses / Procedures Referred By Contac t Referred To Contact CT Scan Diagnoses Neck mass Procedures CT NECK SOFT TISSUE W Nolvia Tam APRN-CNP [address] [place] [address] [facility] [address] [place] [phone] Referral ID Status Reason Start Date Expiration Date Visits Re quested Visits Authorized [id number] Closed 07/17/2020 01/13/2021 1 1 MILLING MACHINE HAND Reason for Visit * Radiology Services (Routine) - Closed Specialty Diagnoses / Procedures Referred By Contricardo robins Referred To Contact CT Scan Diagnoses Neck mass Procedures CT NECK SOFT TISSUE W Nolvia Tam APRN-CNP [address] [place] [address] [facility] [address] [facility] [place] [address] Referral ID Status Reason Start Date Expiration Date Visits Re quested Visits Authorized [id number] Closed 07/17/2020 01/13/2021 1 1 Encounter Details Date Type Department Care Team (Latest Contact Info) Description 07/24/2020 2:21 PM WOOD MILLING MACHINE HAND - 07/24/2020 11:59 PM WOOD MILLING MACHINE HAND Hospital Encounter [facility] CAT SCAN [address] [place] [address] ChunNolvia, COOK FRY-RENTAL CLERK TOOL AND EQUIPMENT [address] [place] [address] Discharge Disposition: Home or Self Care Social [...] COVID-19? No / Unsure 07/02/2020 12:45 PM WOOD MILLING MACHINE HAND documented as of this encounter Medications at [...] by mouth at bedtime 06/25/2020 albuterol HFA (PROVENTIL;VENTOLIN;PROA IR) 108 (90 Base) MCG/ACT inhaler Inhale 2 puffs by mouth every 4 hours as needed 07/05/2020 12/09/2020 atorvastatin (LIPITOR) 40 MG tabletIndications:Hyperl ipidemia, unspecified [...] fluticasone propionate (FLONASE) 50 MCG/ACT nasal spray Rippey 2 sprays into each nostril 16 g [...] DAILY. 11/19/2016 08/01/2020 meloxicam (MOBIC) 7.5 MG tablet TAKE 1 TABLET BY MOUTH EVERY DAY 60 tablet 2 07/16/2020 01/13/2021 montelukast (SINGULAIR) 10 MG tablet Take 10 mg by mouth once daily 07/05/2020 08/01/2020 [place]-3 Fatty Acids (FISH OIL) 1000 MG capsule Take 1,000 mg by mouth 3 times daily with meals. 11/19/2016 05/22/2021 pantoprazole EC (PROTONIX) 40 MG tabletIndications:Gastro esophageal reflux disease with esophagitis Take 1 tablet by mouth once daily 30 tablet 5 03/25/2020 10/07/2020 Riboflavin (B-2) 100 MG Take 1.7 mg by mouth DAILY. 11/19/2016 08/01/2020 venlafaxine XR 24hr (EFFEXOR XR) 37.5 MG [...] Contact Info) Description 07/25/2024 10:00 AM WOOD MILLING MACHINE HAND Office Visit [facility] Physician Group - Endocrinology [address] [place] [phone] Yosi Bustamante MD [address] [place] [address] 2L [place] [address] 07/26/2024 10:00 AM WOOD MILLING MACHINE HAND Appointment [facility] RAD [address] [place] [phone] Neri Delgado MD [address] [place] [address] 07/26/2024 10:00 AM WOOD MILLING MACHINE HAND Office Visit [facility] - ENT [address] [place] [phone] Myra Farmer, WILDLIFE VETERINARIAN [address] [place] [address] 2L [place] [phone] 07/26/2024 11:15 AM WOOD MILLING MACHINE HAND Office Visit [facility] Physician Group - ENT [address] [place] [phone] Neri Delgado MD [address] [place] [address] 08/02/2024 2:20 PM WOOD MILLING MACHINE HAND Appointment [facility] [address] [place] [address] 08/02/2024 3:00 PM WOOD MILLING MACHINE HAND Office Visit [facility] Physician Group - Hematology/Oncology [address] [place] [phone] Remi Beckett MD [address] [place] [phone] 08/18/2024 1:45 PM WOOD MILLING MACHINE HAND Office Visit [facility] Phys[facility] Group - ENT [address] [place] [phone] Neri Delgado MD [address] [place] [address] documented as of this encounter Procedures Procedure Name Priority Date/Time Associated Diagnosis Comments CT NECK SOFT TISSUE W CONT Routine 07/24/2020 2:46 PM WOOD MILLING MACHINE HAND Neck mass CREATININE - POCT INTERFACED Routine 07/24/2020 2:27 PM WOOD MILLING MACHINE HAND documented in this encounter Results * CT NECK SOFT TISSUE W CONT (07/24/2020 2:46 PM WOOD MILLING MACHINE HAND) Anatomical Region Laterality Modality Head Computed Tomogra phy 07/24/2020 2:54 PM WOOD MILLING MACHINE HAND Impressions 07/24/2020 3:16 PM WOOD MILLING MACHINE HAND IMPRESSION: 1. A mildly enlarged left level [...] 3:16 PM . Narrative 07/24/2020 3:16 PM WOOD MILLING MACHINE HAND EXAMINATION: ??Computed tomography (CT) of the neck [...] on 07/24/2020 3:16 PM . Nolvia Chun APRN-RENTAL CLERK TOOL AND EQUIPMENT CT ORDERABLES * CREATININE - POCT INTERFACED (07/24/2020 2:27 PM WOOD MILLING MACHINE HAND) Creatinine POCT 0.67 0.30 - 1.30 mg/dL 07/24/2020 3:13 PM WOOD MILLING MACHINE HAND [facility] eGFR >60 >60 mL/min/1.7 3 m2 07/24/2020 3:13 PM WOOD MILLING MACHINE HAND [facility] Blood BLOOD SPECIMEN / Unknown 07/24/2020 2:27 PM WOOD MILLING MACHINE HAND 07/24/2020 3:13 PM WOOD MILLING MACHINE HAND Nolvia Chun COOK FRY-RENTAL CLERK TOOL AND EQUIPMENT LAB - POINT OF CAR E ORDERABLES [address] [phone], [facility] [phone] documented in this encounter Visit Diagnoses Diagnosis Neck mass Swelling, mass, or lump in head and neck documented in this encounter Administered Medications Inactive Administered Medications - up to 3 most recent administrations Medication Order MAR Action Action Date Dose Rate Site iopamidol (ISOVUE 370) 76 % contrast Intravenous, CONTRAST ONCE, Starting on Wed07/24/20 at 1422, Until Josi 07/25/20 at 0136 $ Given - Contrast 07/24/2020 2:31 PM WOOD MILLING MACHINE HAND 100 mL documented in this encounter Care Teams Repair Department Supervisor Relationship Specialty Start Date End Date Taniya Grimes MD [address] 2L DIV OF [facility] [place] [address] PCP - General 07/01/20 05/10/22 Marylu Marie DO [address] 2L DIV OF [facility] [place] [address] Resident - PCP Student Resident 06/26/20 01/11/22 documented as of this encounter
--- OUTSIDE RECORDS SUMMARY | 2024-07-23 07:29 | XMS_ITS | Encounter Summary ---
Author Organization [facility] Health Address [address] [facility] [place] [address] Care Team Providers Care School Based Therapist Name Role Phone Unavailable Primary Care Provider Unavailabl e Reason for Referral * Radiology Services (Routine) - Closed Specialty Diagnoses / Procedures Referred By Yuan t Referred To Contact CT Scan Diagnoses Right foot pain Procedures MRI FOOT RIGHT WO CONTRAST Samantha Nuñez PA No Information available Referral ID Status Reason Start Date Expiration Date Visits Re quested Visits Authorized [id number] Closed 06/04/2020 12/01/2020 1 1 IT COLLECTION SPECIALIST Reason for Visit * Reason Comments Pain Foot right Encounter Details Date Type Department Care Team (Late st Contact Info) Description 06/04/2020 2:30 PM CREDIT COLLECTION SPECIALIST Office Visit [facility] - Orthopedics [address] [place] [address] Samantha Nuñez PA No Information available Right foot pain (Primary Dx) Social History Tobacco Use [...] COVID-19? No / Unsure 05/13/2020 2:56 PM CREDIT COLLECTION SPECIALIST documented as of this encounter Last Filed Vital Signs Vital Sign Reading Time Taken Comments Blood Pressure - - Pulse - - Temperature - - Respiratory Rate - - Oxygen Saturation - - Inhaled Oxygen Concentration - - Weight 69.6 kg (153 lb 6.4 oz) 06/04/2020 2:38 P M CREDIT COLLECTION SPECIALIST Height 154.9 cm (5' 1) 06/04/2020 2:38 PM CREDIT COLLECTION SPECIALIST Body Mass Index 28.98 06/04/2020 2:38 PM CREDIT COLLECTION SPECIALIST documented in this encounter Patient Instructions * Patient Instructions* Samantha Nuñez PA - 06/04/2020 3:04 PM CREDIT COLLECTION SPECIALIST Images from the original note were not included. - [email or web address] Orth[facility] Brisa Hogan 06/04/2020 Thank you for coming in to see us today. Work/School Excuse: Excused from Work/School on 06/04/20 DIAGNOSIS: Right foot pain - Plan: MRI FOOT RIGHT WO CONTRAST Plan: We discussed and recommended conservative treatment and education which includes: icing 20 minutes at a time, 3 to 5 times daily, anti-inflammatory medications, tylenol, MRI and boot Follow up: Results of MRI will be called to you via phone with plan for treatment as well Call or return to clinic prn if these symptoms worsen or fail to improve as anticipated. If approved to take by your primary care physician, NSAIDs (non-steroidal anti- inflammatory drugs) such as Aleve/naproxen and Motrin/ibuprofen are suggested to relieve inflammation and pain for a short course of therapy for 10 days, advised to take with food. If you develop any adverse side effectssuch as dysphasia, stomach pain, or changes in bladder, please discontinue the medication immediately. Please take the following to promote bone health: ?? Multivitamin 1 tablet daily ?? Vitamin D3 and Calcium as directed by your primary care provider. Cryotherapy is commonly used to reduce temperature, inflammation, pain, muscle spasm and symptoms of delayed onset muscle soreness. There are various methods of ice application such as ice pack, coldpack, cold water immersion, ice massage. You may apply ice to the affected area for 10 minutes at atime. To Find out more info about your diagnosis, visit: [email or web address].org/ Patient was educated and given information regarding their diagnosis today. [facility] Orthopaedic office contact information: Please contact our call center at , option #1 to make an appointment Our Locations: [facility] [address] [place] [address], [address], [place] [address] Please contact the MA at , if you have any further questions or concerns. Critical access hospital [address] [place] [address] Please contact the office at if you have any further questions or concerns. Sincerely, MARQUEZ Beckwith PA-C [email or web address] IT COLLECTION SPECIALIST documented in this encounter Progress Notes * Samantha Nuñez PA - 06/04/2020 2:58 PM CST ESTABLISHED PATIENT VISIT Patient ID: Brisa Hogan is a 59 year old female. CHIEF COMPLAINT Right foot pain HISTORY OF PRESENT ILLNESS: Patient is a 59 year old female who presents for return evaluation of right foot pain. Patient was last seen on 04/18/2020 and was instructed to continue offloading the foot with cast shoe. She feelsthat the pain has lessened in intensity but there are moments of sharp pain at the base of the second toe that spreads into the heads of the metatarsals. Pain is located over the dorsal/plantar aspect of the 2nd metatarsal. Pain is intermittent stabbing. Symptoms worsen with walking. Symptoms are relieved with rest and use of the cast shoe; ice helps also. MEDICAL/SURGICAL/FAMILY/SOCIAL HISTORY-reviewed in chart REVIEW OF SYSTEMS - Constitutional: negative for fever, chills, night sweats; denies numbness/tingling in the foot PHYSICAL EXAM: Alert, oriented and cooperative. Mood and affect appropriate. Gait without deviation. Skin warm and dry. Standing posture erect without forward leaning or hyperlordosis. Respirations even unlabored. No cyanosis, clubbing or edema. The??right??foot &??ankle is neurovascularly intact with no active skin lesions. There is no??swelling throughout dorsal or plantar aspect. There is minimal swelling around the lateral malleolus.??There??is??tenderness between 2nd and 3rd metatarsal head on the plantar aspect.??Full dorsiflexion and plantar flexion range of motion, without pain. There??is not??pain with inversion. There is not??pain at the proximal syndesmosis with palpation. The longitudinal arch is within normal limits. IMAGING: No new films today. ASSESSMENT: Persistent right foot pain despite conservative treatment TREATMENT PLAN: 59 year old female with persistent pain in the right foot despite offloading with cast shoe. I recommend MRI of the right foot to evaluate for Aceves's neuroma versus fracture versus severe bursitis.Results will be called to patient and possible consult to Dr. Taylor made should there be a surgical issue. 1. Patient was counseled to the nature of the diagnosis and demonstrated understanding. All questions answered. 2. PT: hold for now 3. Rx: none at this time 4. Lifting/Activity restrictions: none 5. Follow up via telephone s/p MRI 6. Follow up Imaging: MRI next Samantha Nuñez [facility] Orthopaedic Surgery Collaborative practice with Dr. Jef Gipson, Dr. Faith Bond, and Dr. Cesar Brooks. IT COLLECTION SPECIALIST * Carly Romero - 06/04/2020 2:36 PM CST Right foot f/u. Pt reports she has transitioned from the postop shoe. She has sharp pain out the blue. Swelling has decreased. IT COLLECTION SPECIALIST documented in this encounter Plan of Treatment Upcoming Encounters Date Type Department Care Team (Late st Contact Info) Description 07/25/2024 10:00 AM CREDIT COLLECTION SPECIALIST Office Visit [facility] - Endocrinology [address] [place] [address], [employer] [place] [address] Yosi Bustamante MD [address] [place] [address] [place] [address] 07/26/2024 10:00 AM CREDIT COLLECTION SPECIALIST Appointment [facility] DIAGNOSTIC RAD [address] [place] [phone] Neri Delgado MD [address] [place] [address] 07/26/2024 10:00 AM CREDIT COLLECTION SPECIALIST Office Visit [facility] - ENT [address] [place] [phone] Myra Farmer, EMAIL MARKETER [address] [place] [address] [place] [phone] 07/26/2024 11:15 AM CREDIT COLLECTION SPECIALIST Office Visit [facility] - ENT [address] [place] [address] [phone] Neri Delgado MD [address] [place] [address] 08/02/2024 2:20 PM CREDIT COLLECTION SPECIALIST Appointment [facility] INFUSION CENTER [address] [place] [address] 08/02/2024 3:00 PM CREDIT COLLECTION SPECIALIST Office Visit [facility] - Hematology/Oncology [address] [place] [phone] Remi Beckett MD [address] [place] [address] [phone] 08/18/2024 1:45 PM CREDIT COLLECTION SPECIALIST Office Visit [facility] - ENT [address] [place] [phone] Neri Delgado MD [address] [place] [address] documented as of this encounter Results * MRI FOOT RIGHT WO CONTRAST (07/02/2020 1:48 PM CREDIT COLLECTION SPECIALIST) Anatomical Region Laterality Modality Ankle / Foot Magnetic Resonan ce 07/02/2020 2:35 PM CREDIT COLLECTION SPECIALIST Impressions 07/02/2020 3:19 PM CREDIT COLLECTION SPECIALIST IMPRESSION: 1. No fracture or stress fracture. [...] 3:19 PM . Narrative 07/02/2020 3:19 PM CREDIT COLLECTION SPECIALIST Exam: ??MRI FOOT RIGHT WO CONTRAST History: ??M79.671: Right foot pain . Persistent pain in the second metatarsal, bursitis versus fracture versus Aceves neuroma Comparison: Right foot Radiographs dated 04/02/2020 TECHNIQUE: Images were obtained in the axial, sagittal, and coronal planes using T1 and fluid sensitive fat suppressed sequences without contrast. The koljb-wz-zwep was set to evaluate the area of [...] sensitive fat suppressed sequences without contrast. The wteqm-el-eira was set to evaluate the area of [...] this encounter Visit Diagnoses Diagnosis Right foot pain- Primary Pain in limb Right foot pain Pain in limb documented in this encounter
--- OUTSIDE RECORDS SUMMARY | 2024-07-23 07:29 | XMS_ITS | Encounter Summary ---
Author Organization [facility] Health Address [address] [facility] [place] [place] [address] Care Team Providers Care Induction Machine Setter Name Role Phone Marylu Marie DO Unavailable Taniya Grimes MD Primary Care Provider Reason for Visit * Reason Onset Date Comments Results 06/26/2020 Encounter Details Date Type Department Care Team (Late st Contact Info) Description 06/26/2020 Telephone [facility] INTERNAL MED [address] [place] [phone] Marylu Marie DO [address] [facility] 2L [facility] INTERNAL MEDICINE [place], [place] [phone] Results Social History Tobacco Use Types Packs/Day [...] on file documented as of this encounter Miscellaneous Notes * Telephone Encounter - Esther Branch RN - 07/02/2020 10:20 AM SALES ORDER COORDINATOR Pt calling to inform pcp that her Covid test from 06/29 resulted negative. S ORDER COORDINATOR * Telephone Encounter - Marylu Marie DO - 06/26/2020 2:57 PM CST Telephone Encounter Documentation: Called patient to discuss previous biopsy results - benign follicular nodule on thyroid CT guided biopsy. Ms. Hogan reported she has been experiencing general feeling unwell and increased cough this week. Was tested for COVID-19 today. Lives with who has COPD and occasionally visit with mother.Counseled on mask wearing and isolation while awaiting results. Questions answered; she was thankful for the call. She will update our office when test is resulted. Marylu Marie DO 06/26/2020 2:59 PM S ORDER COORDINATOR documented in this encounter Plan of Treatment Upcoming Encounters Date Type Department Care Team (Late st Contact Info) Description 07/25/2024 10:00 AM SALES ORDER COORDINATOR Office Visit [facility] - Endocrinology [address] [place] [phone] Yosi Bustamante MD [address] [place] [address] 2L [place] [address] 07/26/2024 10:00 AM SALES ORDER COORDINATOR Appointment [facility] DIAGNOSTIC RAD [address] [place] [phone] Neri Delgado MD [address] [place] [address] 07/26/2024 10:00 AM SALES ORDER COORDINATOR Office Visit [facility] - ENT [address] [place] [address] [phone] Myra Farmer, BACK DIGGER OPERATOR [address] [place] [address] 2[address] [place] [phone] 07/26/2024 11:15 AM SALES ORDER COORDINATOR Office Visit [facility] - ENT [address] [place] [address] [phone] Neri Delgado MD [address] [place] [address] 08/02/2024 2:20 PM SALES ORDER COORDINATOR Appointment [facility] INFUSION CENTER [address] [place] [address] 08/02/2024 3:00 PM SALES ORDER COORDINATOR Office Visit [facility] - Hematology/Oncology [address] [place] [phone] Remi Beckett MD [address] [place] [phone] 08/18/2024 1:45 PM SALES ORDER COORDINATOR Office Visit [facility] - ENT [address] [place] [phone] Neri Delgado MD [address] [place] [address] documented as of this encounter Visit Diagnoses Not on filedocumented in this encounter Care Teams Induction Machine Setter Relationship Specialty Start Date End Date Taniya Grimes MD [address] [facility] 2L DIV OF [facility] [place] [phone] PCP - General 07/01/20 05/10/22 Marylu Marie DO [address] [facility] 2L DIV OF [facility] [place] [address] Resident - PCP Student Resident 06/26/20 01/11/22 documented as of this encounter
--- OUTSIDE RECORDS SUMMARY | 2024-07-23 07:30 | XMS_ITS | Encounter Summary ---
Author Organization [facility] Health Address [address] [place] [address] Care Team Providers Care Meter Inspector Name Role Phone Unavailable Primary Care Provider Unavailabl e Encounter Details Date Type Department Care Team (Late Contact Info) Description 02/26/2020 Orders Only [facility] - Orthopedics [address] [place] [phone] Cesar Brooks MD [address] [address] Arthralgia of hip, unspecified laterality Social History Tobacco Use Types Packs/Day Years Used Date Smoking Tobacco: Every Day Cigarettes 0.5 51 Started: 07/22/1973 Smokeless Tobacco: Never Alcohol Use Standard Drinks/Week Comments No 0 (1 standard drink = 0.6 oz pur e alcohol) Sex and Gender Information Value Date Recorded Sex Assigned at Not on file Gender Identity Not on file Sexual Orientation Not on file documented as of this encounter Plan of Treatment Upcoming Encounters Date Type Department Care Team (Late Contact Info) Description 07/25/2024 10:00 AM BUSINESS CONTINUITY DIRECTOR Office Visit [facility] - Endocrinology [address] [place] [address] [phone] Yosi Bustamante MD [address] [place] [address] [place] [address] 07/26/2024 10:00 AM BUSINESS CONTINUITY DIRECTOR Appointment [facility] DIAGNOSTIC RAD [address] [place] [phone] Neri Delgado MD [address] [place] [address] 07/26/2024 10:00 AM BUSINESS CONTINUITY DIRECTOR Office Visit [facility] - ENT [address] [place] [phone] Myra Farmer, SOCIAL MEDIA CONTENT MANAGER [address] [place] [address] [place] [phone] 07/26/2024 11:15 AM BUSINESS CONTINUITY DIRECTOR Office Visit [facility] - ENT [address] [place] [address] [phone] Neri Delgado MD [address] [place] [address] 08/02/2024 2:20 PM BUSINESS CONTINUITY DIRECTOR Appointment [facility]ION [facility] [address] [place] [address] 08/02/2024 3:00 PM BUSINESS CONTINUITY DIRECTOR Office Visit [facility] - Hematology/Oncology [address] [place] [phone] Remi Beckett MD [address] [place] [phone] 08/18/2024 1:45 PM BUSINESS CONTINUITY DIRECTOR Office Visit [facility] - ENT [address] [place] [phone] Neri Delgado MD [address] [place] [address] documented as of this encounter Results * XR PELVIS 1 OR 2VW (02/27/2020 1:12 PM CDT) Anatomical Region Laterality Modality Pelvis Radiographic Ewa ging 02/27/2020 1:59 PM CDT Impressions 02/27/2020 2:01 PM CDT IMPRESSION: Severe left hip arthritis, progressed. This report was electronically signed by NICO MEEHAN MD ??on 02/27/2020 2:01 PM . Narrative 02/27/2020 2:01 PM CDT Exam: 1. ??XR PELVIS 1 view 2. XR HIP LEFT 2VW History: ??M25.559: Arthralgia of hip, unspecified laterality Comparison: Left hip radiographs dated 08/10/2018 Findings: Left hip: No acute fracture or dislocation is present. There is severe arthritis with tgjs-ty-xeqe contact, subchondral sclerosis, cysts, and osteophytes. Coexisting femoral head avascular necrosis is difficult to exclude. Pelvis: There is no displaced pelvic fracture. The pubic symphysis, sacroiliac joints, and right hip joint space are normal. Procedure Note Nico Meehan MD - 02/27/2020 Exam: 1. XR PELVIS 1 view 2. XR HIP LEFT 2VW History: M25.559: Arthralgia of hip, unspecified laterality Comparison: Left hip radiographs dated 08/10/2018 Findings: Left hip: No acute fracture or dislocation is present. There is severe arthritis with uhvv-dj-mchd contact, subchondral sclerosis, cysts, andosteophytes. Coexisting femoral head avascular necrosis is difficult to exclude. Pelvis: There is no displaced pelvic fracture. The pubic symphysis, sacroiliac joints, and right hip joint space are normal. IMPRESSION: Severe left hip arthritis, progressed. This report was electronically signed by NICO MEEHAN MD on02/27/2020 2:01 PM . Cesar Brooks MD DIAGNOSTIC IMAGING ORDERABLES * XR HIP LEFT 2VW OR MORE (02/27/2020 1:12 PM CDT) Anatomical Region Laterality Modality Pelvis, Lower Extremity Radiogra [facility] 02/27/2020 1:59 PM CDT Impressions 02/27/2020 2:01 PM CDT IMPRESSION: Severe left hip arthritis, progressed. This report was electronically signed by NICO MEEHAN MD ??on 02/27/2020 2:01 PM . Narrative 02/27/2020 2:01 PM CDT Exam: 1. ??XR PELVIS 1 view 2. XR HIP LEFT 2VW History: ??M25.559: Arthralgia of hip, unspecified laterality Comparison: Left hip radiographs dated 08/10/2018 Findings: Left hip: No acute fracture or dislocation is present. There is severe arthritis with ubvj-st-ukds contact, subchondral sclerosis, cysts, and osteophytes. Coexisting femoral head avascular necrosis is difficult to exclude. Pelvis: There is no displaced pelvic fracture. The pubic symphysis, sacroiliac joints, and right hip joint space are normal. Procedure Note Nico Meehan MD - 02/27/2020 Exam: 1. XR PELVIS 1 view 2. XR HIP LEFT 2VW History: M25.559: Arthralgia of hip, unspecified laterality Comparison: Left hip radiographs dated 08/10/2018 Findings: Left hip: No acute fracture or dislocation is present. There is severe arthritis with akdh-zx-okas contact, subchondral sclerosis, cysts, andosteophytes. Coexisting femoral head avascular necrosis is difficult to exclude. Pelvis: There is no displaced pelvic fracture. The pubic symphysis, sacroiliac joints, and right hip joint space are normal. IMPRESSION: Severe left hip arthritis, progressed. This report was electronically signed by NICO MEEHAN MD on02/27/2020 2:01 PM . Cesar Brooks MD DIAGNOSTIC IMAGING ORDERABLES documented in this encounter Visit Diagnoses Diagnosis Arthralgia of hip, unspecified laterality- Primary Arthralgia of hip, unspecified laterality Arthralgia of hip, unspecified laterality documented in this encounter
--- OUTSIDE RECORDS SUMMARY | 2024-07-23 07:30 | XMS_ITS | Encounter Summary ---
Author Organization [facility] Health Address [address] [facility] [place] [address] Care Team Providers Care Jd Edwards Name Role Phone Unavailable Primary Care Provider Unavailabl e Reason for Visit * Reason Comments Pain Foot Encounter Details Date Type Department Care Team (Late st Contact Info) Description 04/02/2020 12:30 PM CDT Office Visit [facility] - Orthopedics [address] [place] [address], [place] [address] Marylu Bajwa APRN-CNP [address] [place] [address] [place] [address] Right foot pain (Primary Dx) Social History [...] on file documented as of this encounter Patient Instructions * Patient Instructions* Marylu Bajwa APRN-CNP - 04/02/2020 1:09 PM CDT Images from the original note were not included. - [email or web address] Orthopaedic Surgery Clinic Brisa Hogan 04/02/2020 Thank you for coming in to see us today. Work/School Excuse: Excused from Work/School on 04/02/20 DIAGNOSIS: Right foot pain Plan: We discussed and recommended conservative treatment and education which includes: icing 20 minutes at a time, 3 to 5 times daily and bracing Follow up: As needed. Call or return to clinic prn if these symptoms worsen or fail to improve as anticipated. If approved to take by your primary care physician, NSAIDs (non-steroidal anti- inflammatory drugs) such as Aleve/naproxen and Motrin/ibuprofen are suggested to relieve inflammation and pain for a short course of therapy for 3 weeks, advised to take with food. If you develop any adverse side effectssuch as dysphasia, stomach pain, or changes in bladder, please discontinue the medication immediately. Please take the following to promote bone health: ?? Multivitamin 1 tablet daily ?? Vitamin D3 2000 IU 1 tablet daily ?? Calcium 600mg with Vitamin D 400 IU 2 tablets daily Cryotherapy is commonly used to reduce temperature, [...] and given information regarding their diagnosis today. [facility]opaedic office contact information: Please contact our call center at , option #1 to make an appointment Our Locations: [facility] Office: [address] [place] [address], [place] [address] Please contact the MA at , if you have any further questions or concerns. [facility] [address] [place] [address] [address], [place] [address] Please contact the MA at , if you have any further questions or concerns. [facility] [address] [place] [address] Please contact JOSY [phone] if you have any further questions or concerns. Sincerely, Marylu Bajwa APRN [email or web address] documented in this encounter Progress Notes * Marylu Bajwa APRN-CNP - 04/02/2020 12:51 PM CDT [facility] [address] [facility] [address] Dept: [phone] Dept Today we had the pleasure of seeing Brisa Hogan in our [facility] Orthopaedic Surgery Clinic for Chief Complaint Patient presents with ??? Pain Foot Brisa Hogan is a 59 year old female who has right foot pain. Pain is located to both the dorsal and plantar aspect. The patient first noted symptoms 1 month ago. There was no trauma, injury, or bruising ever noted. She locates most of her pain around the 2nd toe. She's under Dr. Brooks's carefor severe hip OA and working towards quitting smoking for surgical clearance. She has been walkingwith a cane x 1 year due to hip pain. She is unable to wear a tennis shoe or supportive shoe due topain. She's been wearing slippers since they stretch. Associated with pain are symptoms of swellingon the dorsal and plantar aspects. She notes lateral swelling bilaterally, that's been present for years and not bothersome. Symptoms are exacerbated by walking for prolonged periods of time. Standing is nonpainful. Factors which relieve the pain include icing both sides of the foot. she is not taking anything for pain.Treatment efforts have included ice and rest. she ambulates with a cane. she has not been to physical therapy. she has not had any injections for her foot. Work: [employer] 3 days/week Current Smoker: Yes Past Medical History: Diagnosis Date ??? Anxiety and depression ??? Degenerative disc disease, lumbar ??? HLD (hyperlipidemia) ??? Osteoarthritis of one hip, left ??? Psoriasis Past Surgical History: Procedure Laterality Date ??? Section ??? ENDOSCOPY, COLON, DIAGNOSTIC no polyp ??? HX STERILIZATION ??? Polypectomy cervical Family History Problem Relation [...] Sister Status: Alive Social History Tobacco Use Smoking Status Current Every Day Smoker ??? Packs/day: 0.50 ??? Start date: 07/22/1973 Smokeless Tobacco Never Used REVIEW OF SYSTEMS: also refer to HPI General/Constitutional: No fever, chills, night sweats, insomnia, appetite changes, or unexplained weight changes Endocrine: No thyroid problems, No diabetes Cardiovascular: No exertional chest pain, or palpitations Respiratory/Pulmonary: No dyspnea or SOB Psychiatric: No changes in mood or behavior HEENT: No changes to hearing or eye sight. No sore throats, vertigo, or tinnitus Gastrointestinal: No GI upset, No nausea, vomiting or diarrhea Skin: No skin rashes or skin lesions Neurologic: No numbness and tingling, No dizziness or visual disturbances Musculoskeletal: positive joint pain or stiffness, no muscle aches, no leg cramping Physical Examination There were no vitals filed for this visit. Estimated body mass index is 29.49 kg/m?? as calculated from the following: Height as of 11/23/19: 1.524 m (5'). Weight as of 02/27/20: 68.5 kg (151 lb). The patient is awake, alert, oriented and they are pleasant to speak with. Gait is antalgic with a cane. Evaluation of the uninjured right foot & ankle noted no skin lesions, neurovascularly intact. There was no swelling or deformity. Ligamentously stable. Full range of motion. Good strength throughout. The right foot & ankle is neurovascularly intact with no active skin lesions. There is no swelling throughout dorsal or plantar aspect. There is minimal swelling around the lateral malleolus. There is tenderness between 2nd and 3rd metatarsal head on the plantar aspect. Full dorsiflexion and plantar flexion range of motion, without pain. Metatarsal head squeeze test is negative. Anterior drawer is negative. Talar tilt is negative. There is not pain with inversion. There is not pain at the proximal syndesmosis with palpation. The longitudinal arch is within normal limits. Taylor test is negative. Radiographs were reviewed by me in office: plain films show mild first MTP joint degenerative change with mild soft tissue swelling. No fracture or dislocation. Impression: Right foot pain, differential diagnosis to include metatarsal head bursitis vs. Aceves's neuroma. Assessment: This is a 59 year old female with Right foot pain Plan: The patient was counseled as to her diagnosis and demonstrated understanding. Provided patient with a walking boot to offload the foot. No Restrictions: activity as tolerated Continue icing with NSAIDs and/or tylenol as needed for pain. Patient was counseled as to the following conservative interventions: - Recommend 2000 units Vitamin D daily for bone health - May try 1500 to 2000 mg Glucosamine/chondriotin/MSM daily for joint pain. - Smoking cessation was discussed with the patient. Follow up in 2 weeks. If no improvement after being in the boot, consider evaluation by foot and ankle service. Marylu Bajwa APRN documented in this encounter Plan of Treatment Upcoming Encounters Date Type Department Care Team (Late st Contact Info) Description 07/25/2024 10:00 AM CERTIFIED NUTRITIONIST Office Visit [facility] - Endocrinology [address] [place] [phone] Yosi Bustamante MD [address] [place] [address] [place] [address] 07/26/2024 10:00 AM CERTIFIED NUTRITIONIST Appointment [facility] [address] [place] [phone] Neri Delgado MD [address] [place] [address] 07/26/2024 10:00 AM CERTIFIED NUTRITIONIST Office Visit [facility] - ENT [address] [place] [phone] Myra Farmer, LUMBER HANDLER [address] [place] [address] [place] [phone] 07/26/2024 11:15 AM CERTIFIED NUTRITIONIST Office Visit [facility] - ENT [address] [place] [phone] Neri Delgado MD [address] [place] [address] 08/02/2024 2:20 PM CERTIFIED NUTRITIONIST Appointment [facility] [address] [place] [address] 08/02/2024 3:00 PM CERTIFIED NUTRITIONIST Office Visit [facility] - Hematology/Oncology [address] [place] [phone] Remi Beckett MD [address] [place] [phone] 08/18/2024 1:45 PM CERTIFIED NUTRITIONIST Office Visit [facility] - ENT [address] [place] [phone] Neri Delgado MD [address] [place] [address] documented as of this encounter Visit Diagnoses Diagnosis Right foot pain- Primary Pain in limb documented in this encounter
--- OUTSIDE RECORDS SUMMARY | 2024-07-23 07:30 | XMS_ITS | Encounter Summary ---
Author Organization [facility] Health Address [address] [place] [address] Care Team Providers Care Machine Compositor Name Role Phone Unavailable Primary Care Provider Unavailabl e Encounter Details Date Type Department Care Team (Late st Contact Info) Description 04/18/2020 11:15 AM CDT Office Visit [facility] - Orthopedics [address] [place] [address], [place] [address] Taniya Grimes MD [address] [place] [address] 2L DIV OF [facility] [place] [address] Samantha Nuñez PA No Information available Mina Rodas MD [address] [facility] [address] [place], [place] [phone] Right foot pain (Primary Dx) Social History [...] or suspected to have Coronavirus / COVID-19? Unable to assess 04/18/2020 11:24 AM CD T documented as of this encounter Patient Instructions * Patient Instructions* Samantha Nuñez PA - 04/18/2020 11:50 AM CDT Images from the original note were not included. - [email or web address] Orthopaedic Surgery Clinic Brisa Hogan 04/18/2020 Thank you for coming in to see us today. Work/School Excuse: Excused from Work/School on 04/18/20 DIAGNOSIS: Right foot pain Plan: We discussed and recommended conservative treatment and education which includes: icing 20 minutes at a time, 3 to 5 times daily, tylenol and boot Follow up: 4 weeks Call or return to clinic prn if [...] and given information regarding their diagnosis today. [facility] office contact information: Please contact our call center at , option #1 to make an appointment Our Locations: [facility] [address] [place] [address], [address], [place] [address] Please contact the MA at , if you have any further questions or concerns. [facility] [address] [place] [address] Please contact the office at if you have any further questions or concerns. Sincerely, Samantha Nuñez [facility] [place] [email or web address] documented in this encounter Progress Notes * Samantha Nuñez PA - 04/18/2020 11:42 AM CDT ESTABLISHED PATIENT VISIT Patient ID: Brisa Hogan is a 59 year old female. CHIEF COMPLAINT Right foot pain HISTORY OF PRESENT ILLNESS: Patient is a 59 year old female who presents for return evaluation of right foot pain for about 6 weeks. Patient was last seen on 04/02/2020 for this pain and was placed into a cast shoe. Ultimately it has been helpful and she notes the pain and swelling are improving. Pain is located over the dorsal/plantar aspect of the 2nd metatarsal. Pain is intermittent stabbing. Symptoms worsen with walking. Symptoms are relieved with rest and use of the cast shoe; ice helps also. MEDICAL/SURGICAL/FAMILY/SOCIAL HISTORY-reviewed in chart REVIEW OF SYSTEMS - Constitutional: negative for fever, chills, night sweats; Urinary: negative forurinary retention or incontinence; GI: negative for bowel incontinence PHYSICAL EXAM: Alert, oriented and cooperative. Mood and affect appropriate. Skin warm and dry. Standing posture erect without forward leaning or hyperlordosis. Respirations even unlabored. No cyanosis, clubbing or edema. The patient is awake, alert, oriented and they are pleasant to speak with. Gait is antalgic with a cane. ?? Evaluation of the uninjured right foot & ankle noted no skin lesions, neurovascularly intact. There was no swelling or deformity. Ligamentously stable. Full range of motion. Good strength throughout. ?? The right foot & ankle is neurovascularly intact with no active skin lesions. There is no swelling throughout dorsal or plantar aspect. There is minimal swelling around the lateral malleolus. There is tenderness between 2nd and 3rd metatarsal head on the plantar aspect. Full dorsiflexion and plantar flexion range of motion, without pain. There is not pain with inversion. There is not pain at the proximal syndesmosis with palpation. The longitudinal arch is within normal limits. IMAGING: No new films today. ASSESSMENT: Improving right 2nd metatarsal head pain TREATMENT PLAN: 59 year old female with improving pain in the right 2nd metatarsal head with differential to include Aceves's neuroma versus metatarsal bursitis. 1. Patient was counseled to the nature of their diagnosis and demonstrated understanding 2. PT: none today 3. Rx: none today, continue current medication 4. Lifting/Activity restrictions: continue to use cast shoe for ambulation 5. Follow up in 4 weeks 6. Follow up Imaging: none MARQUEZ Beckwith, PA-C [facility] Orthopaedic Surgery Collaborative practice with Dr. Gavin Comer, Dr. Jef Gipson, Dr. Faith Bond, and Dr. Minor. * Carly Romero - 04/18/2020 11:32 AM CDT Right foot pain f/u. Pt reports some improvement but continued soreness when standing prolonged periods. documented in this encounter Plan of Treatment Upcoming Encounters Date Type Department Care Team (Late st Contact Info) Description 07/25/2024 10:00 AM BANQUET PREP COOK Office Visit [facility] - Endocrinology [address] [place] [phone] Yosi Bustamante MD [address] [place] [address] 2L [place] [address] 07/26/2024 10:00 AM BANQUET PREP COOK Appointment [facility] [address] [place] [phone] Neri Delgado MD [address] [place] [address] 07/26/2024 10:00 AM BANQUET PREP COOK Office Visit [facility] - ENT [address] [place] [phone] Myra Farmer, ZAIN [address] [place] [address] 2L [place] [phone] 07/26/2024 11:15 AM BANQUET PREP COOK Office Visit [facility] - ENT [address] [place] [phone] Neri Delgado MD [address] [place] [address] 08/02/2024 2:20 PM BANQUET PREP COOK Appointment [facility] [address] [place] [address] 08/02/2024 3:00 PM BANQUET PREP COOK Office Visit [facility] - Hematology/Oncology [address] [place] [phone] Remi Beckett MD [address] [place] [phone] 08/18/2024 1:45 PM BANQUET PREP COOK Office Visit [facility] - ENT [address] [place] [phone] Neri Delgado MD [address] [place] [address] documented as of this encounter Visit Diagnoses Diagnosis Right foot pain- Primary Pain in limb documented in this encounter
--- OUTSIDE RECORDS SUMMARY | 2024-07-23 07:30 | XMS_ITS | Encounter Summary ---
Author Organization [facility] Health Address [address] [facility] [place] [address] Care Team Providers Care Design Supervisor Name Role Phone Unavailable Primary Care Provider Unavailabl e Reason for Referral * Radiology Services (Routine) - Closed Specialty Diagnoses / Procedures Referred By Contac t Referred To Contact Ultrasound Diagnoses Thyroid nodule Procedures CT GUIDED NEEDLE BIOPSY THYROID (62638) US THYROID FNA Taniya Grimes MD [address] [facility] 2L DIV [place] [address] [facility] [address] [place] [address] Referral ID Status Reason Start Date Expiration Date Visits Re quested Visits Authorized [id number] Closed 03/27/2020 06/26/2020 1 1 Encounter Details Date Type Department Care Team (Late st Contact Info) Description 03/18/2020 Orders Only [facility] [address]L [address] [facility], [place] [address] Brandi Mock, SWIMMING POOL SERVICEPERSON-MINE EQUIPMENT DESIGN ENGINEER [address] [facility] FIRST [place] [address] Thyroid nodule Social History Tobacco [...] st Contact Info) Description 07/25/2024 10:00 AM UNIVERSITY TUTOR Office Visit [facility] - Endocrinology [address] [place] [phone] Yosi Bustamante MD [address] [place] [address] 2L [place] [address] 07/26/2024 10:00 AM UNIVERSITY TUTOR Appointment [facility] [address] [place] [phone] Neri Delgado MD [address] [place] [address] 07/26/2024 10:00 AM UNIVERSITY TUTOR Office Visit [facility] - ENT [address] [place] [phone] Myra Farmer, SECURITY DELIVERY SPECIALIST [address] [place] [address] 2L [place] [phone] 07/26/2024 11:15 AM UNIVERSITY TUTOR Office Visit [facility] - ENT [address] [place] [phone] Neri Delgado MD [address] [place] [address] 08/02/2024 2:20 PM UNIVERSITY TUTOR Appointment [facility] [address] [place] [address] 08/02/2024 3:00 PM UNIVERSITY TUTOR Office Visit [facility] - Hematology/Oncology [address] [place] [phone] Remi Beckett MD [address] [place] [phone] 08/18/2024 1:45 PM UNIVERSITY TUTOR Office Visit [facility] - ENT [address] [place] [phone] Neri Delgado MD [address] [place] [address] documented as of this encounter Results * CT GUIDED NEEDLE BIOPSY THYROID (49392) (04/18/2020 4:07 PM CDT) Anatomical Region Laterality [...] 5), was referred for ultrasound-guided fine-needle aspiration. Disbursing Officer: Dr. Milan Quarles, Attending Physician Anesthesia: Local [...] (TR 5), wasreferred for ultrasound-guided fine-needle aspiration. Disbursing Officer: Dr. Milan Quarles, Attending Physician Anesthesia: Local [...] PM . Taniya Grimes MD CT ORDERABLES documented in this encounter Visit Diagnoses Diagnosis Thyroid nodule- Primary Nontoxic uninodular goiter Thyroid nodule Nontoxic uninodular goiter documented in this encounter
--- OUTSIDE RECORDS SUMMARY | 2024-07-23 07:30 | XMS_ITS | Encounter Summary ---
Author Organization [facility] Health Address [address] [facility] [place] [address] Care Team Providers Care Pipe Finishing Supervisor Name Role Phone Unavailable Primary Care Provider Unavailabl e Encounter Details Date Type Department Care Team (Late st Contact Info) Description 04/02/2020 12:38 PM CDT - 04/02/2020 11:59 PM CDT Hospital Encounter [facility] [address] [facility] [address] Marylu Bajwa, GRANTS AND CONTRACTS ASSISTANT-INFORMATION TECHNOLOGY COORDINATOR [address] [facility] [place] [address] Discharge Disposition: Home or Self Care Social [...] on file documented as of this encounter Medications at Time of Discharge Medication Sig Dispensed Refills Start Date End Date PARoxetine (PAXIL) 40 MG tablet Take 1 (one) tablet by mouth once daily 2 11/14/2016 atorvastatin (LIPITOR) 40 MG tabletIndications:Hyperl ipidemia, unspecified [...] propionate (FLONASE) 50 MCG/ACT nasal spray [place] 2 sprays into each nostril 16 g 09/06/2019 04/11/2021 folic acid 400 MCG tablet Take 400 mcg by mouth DAILY. 11/19/2016 08/01/2020 gabapentin (NEURONTIN) 300 MG capsuleIndications:Prima ry osteoarthritis of left hip TAKE 1 CAPSULE BY MOUTH THREE TIMES A DAY 90 capsule 5 03/08/2020 09/06/2020 ibuprofen (MOTRIN) 800 MG tablet 1 10/14/2016 04/18/2020 lidocaine (LMX 4) 4 % cream 06/12/2019 08/01/2020 magnesium 500 MG tablet Take 500 tablets by mouth DAILY. 11/19/2016 08/01/2020 meloxicam (MOBIC) 7.5 MG tabletIndications:Osteoa rthritis Take 1 tablet by mouth once daily Reasons: Joint Damage causing Pain and Loss of Function 60 tablet 2 02/27/2020 07/16/2020 [place]-3 Fatty Acids (FISH OIL) 1000 MG capsule [...] st Contact Info) Description 07/25/2024 10:00 AM COLDFUSION Office Visit [facility] - Endocrinology [address] [place] [phone] Yosi Bustamante MD [address] [place] [address] 2L [place] [address] 07/26/2024 10:00 AM COLDFUSION Appointment [facility] [address] [place] [phone] Neri Delgado MD [address] [place] [address] 07/26/2024 10:00 AM COLDFUSION Office Visit [facility] - ENT [address] [place] [phone] Myra Farmer, VENUE MANAGER [address] [place] [address] 2L [place] [phone] 07/26/2024 11:15 AM COLDFUSION Office Visit [facility] - ENT [address] [place] [phone] Neri Delgado MD [address] [place] [address] 08/02/2024 2:20 PM COLDFUSION Appointment [facility] [address] [place] [address] 08/02/2024 3:00 PM COLDFUSION Office Visit [facility] - Hematology/Oncology [address] [place] [phone] Remi Beckett MD [address] [place] [phone] 08/18/2024 1:45 PM COLDFUSION Office Visit [facility] - ENT [address] [place] [phone] Neri Delgado MD [address] [place] [address] documented as of this encounter Procedures Procedure Name Priority Date/Time Associated Diagnosis Comments XR FOOT RIGHT 3VW OR MORE Routine 04/02/2020 12:40 PM CDT Right foot pain documented in this encounter Results * XR FOOT RIGHT 3VW OR MORE (04/02/2020 12:40 PM CDT) Anatomical Region Laterality Modality Ankle / Foot Radiographic Ewa ging 04/02/2020 1:11 PM CDT Impressions 04/02/2020 1:12 PM CDT IMPRESSION: Mild first metatarsophalangeal joint degenerative change. This report was electronically signed by NICO DU MD ??on 04/02/2020 1:12 PM . Narrative [...] calcaneal spurs are visible. Procedure Note Nico Du MD - 04/02/2020 Exam: XR FOOT RIGHT [...] This report was electronically signed by NICO DU MD on04/02/2020 1:12 PM . Marylu Bajwa GRANTS AND CONTRACTS ASSISTANT-INFORMATION TECHNOLOGY COORDINATOR DIAGNOSTIC IMAG ING ORDERABLES documented in this encounter Visit Diagnoses Diagnosis Right foot pain Pain in limb documented in this encounter
--- OUTSIDE RECORDS SUMMARY | 2024-07-23 07:30 | XMS_ITS | Encounter Summary ---
Author Organization [facility] Health Address [address] [facility] [place] [address] Care Team Providers Care Bag Loader Machine Operator Name Role Phone Unavailable Primary Care Provider Unavailabl e Encounter Details Date Type Department Care Team (Late Contact Info) Description 04/01/2020 Orders Only [facility] Orthoped[facility] [address] [place] [address] [phone] Marylu Bajwa, MUSIC COORDINATOR-PORTFOLIO CONSULTANT [address] [place] [address] DIV [place] [address] Right foot pain Social History Tobacco Use Types Packs/Day [...] (Late Contact Info) Description 07/25/2024 10:00 AM CONDITIONER TUMBLER Office Visit [facility] - Endocrinology [address] [place] [address] [phone] Yosi Bustamante MD [address] [place] [address] [place] [address] 07/26/2024 10:00 AM CONDITIONER TUMBLER Appointment [facility] [address] [place] [phone] Neri Delgado MD [address] [place] [address] 07/26/2024 10:00 AM CONDITIONER TUMBLER Office Visit [facility] - ENT [address] [place] [address] [phone] Myra Farmer, FINANCIAL SUPERVISOR [address] [place] [address] [place] [phone] 07/26/2024 11:15 AM CONDITIONER TUMBLER Office Visit [facility] - ENT [address] [place] [address] [phone] Neri Delgado MD [address] [place] [address] 08/02/2024 2:20 PM CONDITIONER TUMBLER Appointment [facility] [address] [place] [address] 08/02/2024 3:00 PM CONDITIONER TUMBLER Office Visit [facility] - Hematology/Oncology [address] [place] [address] [phone] Remi Beckett MD [address] [place] [phone] 08/18/2024 1:45 PM CONDITIONER TUMBLER Office Visit [facility]NT [address] [place] [address] [phone] Neri Delgado MD [address] [place] [address] documented as of this encounter Results * XR FOOT RIGHT [...] MD on04/02/2020 1:12 PM . Marylu Bajwa APRN-PORTFOLIO CONSULTANT DIAGNOSTIC IMAG ING ORDERABLES documented in this encounter Visit Diagnoses Diagnosis Right foot pain- Primary Pain in limb Right foot pain Pain in limb documented in this encounter
--- OUTSIDE RECORDS SUMMARY | 2024-07-23 07:30 | XMS_ITS | Encounter Summary ---
Author Organization [facility] Health Address [address] [facility] [place] [address] Care Team Providers Care Auto Service Advisor Name Role Phone Unavailable Primary Care Provider Unavailabl e Reason for Visit * Reason Comments Refill Request Encounter Details Date Type Department Care Team (Late st Contact Info) Description 03/06/2020 Refill [facility] [address] [facility] [address] [place] [address] Marylu Marie DO [address] OF [facility] [place] [address] Refill Request Social History Tobacco Use Types [...] Telephone Encounter - Esther Branch RN - 03/08/2020 8:21 AM CDT Refill Request Brisa Hogan ELE: 02-15-20May due: 6 month f/u MAY scheduled: 08-22-20 Allergies: No Known Allergies Pended Medication Order: Requested Prescriptions Pending Prescriptions Disp Refills ??? cetirizine (ZYRTEC) 10 MG tablet [Pharmacy Med Name: CETIRIZINE HCL 10 MG TABLET] 30 tablet 5 Sig: TAKE 1 TABLET BY MOUTH EVERY DAY ??? gabapentin (NEURONTIN) 300 MG capsule [Pharmacy Med Name: GABAPENTIN 300 MG CAPSULE] 90 capsule5 Sig: TAKE 1 CAPSULE BY MOUTH THREE TIMES A DAY documented in this encounter Plan of Treatment Upcoming Encounters Date Type Department Care Team (Late st Contact Info) Description 07/25/2024 10:00 AM CREDIT REPORTING CLERK Office Visit [facility] - Endocrinology [address] [place] [phone] Yosi Bustamante MD [address] [place] [address] 2L [place] [address] 07/26/2024 10:00 AM CREDIT REPORTING CLERK Appointment [facility] [address] [place] [phone] Neri Delgado MD [address] [place] [address] 07/26/2024 10:00 AM CREDIT REPORTING CLERK Office Visit [facility] - ENT [address] [place] [phone] Myra Farmer, PHARMACY SCHEDULER [address] [place] [address] 2L [place] [phone] 07/26/2024 11:15 AM CREDIT REPORTING CLERK Office Visit [facility] - ENT [address] [place] [phone] Neri Delgado MD [address] [place] [address] 08/02/2024 2:20 PM CREDIT REPORTING CLERK Appointment [facility] [address] [place] [address] 08/02/2024 3:00 PM CREDIT REPORTING CLERK Office Visit [facility] - Hematology/Oncology [address] [place] [address] [phone] Remi Beckett MD [address] [place] [address] 08/18/2024 1:45 PM CREDIT REPORTING CLERK Office Visit [facility] [address] [place] [phone] Neri Delgado MD [address] [place] [address] documented as of this encounter Visit Diagnoses Diagnosis Allergic rhinitis, unspecified seasonality, unspecified trigger Primary osteoarthritis of left hip Primary localized osteoarthrosis, pelvic region and thigh documented in this encounter
--- OUTSIDE RECORDS SUMMARY | 2024-07-23 07:30 | XMS_ITS | Encounter Summary ---
Author Organization [facility] Health Address [address] [place] [address] Care Team Providers Care Profile Saw Setup Operator Name Role Phone Unavailable Primary Care Provider Unavailabl e Reason for Visit * Reason Onset Date Comments Medication Prior Auth Request 03/25/2020 Encounter Details Date Type Department Care Team (Late Contact Info) Description 03/25/2020 Telephone [facility] [address] [place] [address], [facility] [place] [phone] Taniya Grimes MD [address] [place] [address] [place] [phone] Medication Prior Auth Request Social History Tobacco [...] Telephone Encounter - Mellisa Vargas LPN - 03/25/2020 12:09 PM CDT Insurance requires prior auth for Pantoprazole. Prior auth request submitted on line at [email or web address]. Office notes submitted with request Yes. Waiting for insurance response. Cover My Meds perez:[email or web address] documented in this encounter Plan of Treatment Upcoming Encounters Date Type Department Care Team (Late Contact Info) Description 07/25/2024 10:00 AM CHECK OUT CLERK [facility] [address] [place] [phone] Yosi Bustamante MD [address] [place] [address] 2L Div [place] [address] 07/26/2024 10:00 AM CHECK OUT CLERK Appointment [facility] RAD [address] [place] [phone] Neri Delgado MD [address] [place] [address] 07/26/2024 10:00 AM CHECK OUT CLERK Office Visit [facility] ENT [address] [place] [address] [phone] Myra Farmer, RIVET TOSSER [address] [place] [address] 2L [place] [address] 07/26/2024 11:15 AM CHECK OUT CLERK Office Visit [facility] [address] [place] [phone] Neri Delgado MD [address] [place] [address] 08/02/2024 2:20 PM CHECK OUT CLERK Appointment [facility] [address] [place] [address] 08/02/2024 3:00 PM CHECK OUT CLERK Office Visit [facility] - Hematology/Oncology [address] [place] [address] [phone] Remi Beckett MD [address] [place] [phone] 08/18/2024 1:45 PM CHECK OUT CLERK Office Visit [facility] E[facility] [address] [place] [address], [place] [phone] Neri Delgado MD [address] [place] [address] documented as of this encounter Visit Diagnoses Not on filedocumented in this encounter
--- OUTSIDE RECORDS SUMMARY | 2024-07-23 07:30 | XMS_ITS | Encounter Summary ---
Author Organization [facility] Health Address [address] [facility] [place] [address] Care Team Providers Care Elementary Tutor Name Role Phone Unavailable Primary Care Provider Unavailabl e Encounter Details Date Type Department Care Team (Latest Contact Info) Description 02/27/2020 12:57 PM CDT Hospital Encounter [facility] [address] [facility] [place] [phone] Cesar Brooks MD [address] [facility] [address] [place] [address] Discharge Disposition: Home or Self Care Social [...] rhinitis, unspecified seasonality, unspecified trigger Take 1 tablet by mouth once daily 30 tablet 5 09/15/2019 03/08/2020 clobetasol (TEMOVATE) 0.05 % ointment Apply to affected area 2 times daily 60 g 12/26/2019 01/13/2021 clonazePAM (KLONOPIN) 0.5 MG tablet Take 0.5 mg by mouth 2 times daily 03/29/2019 05/22/2021 Cyanocobalamin (B-12) 100 MCG Take 6 mcg by mouth DAILY. 11/19/2016 08/01/2020 fluticasone propionate (FLONASE) 50 MCG/ACT nasal spray Com[place] 2 sprays into each nostril 16 g 09/06/2019 04/11/2021 folic acid 400 MCG tablet Take 400 mcg by mouth DAILY. 11/19/2016 08/01/2020 gabapentin (NEURONTIN) 300 MG capsuleIndications:Prima ry osteoarthritis of left hip Take 1 capsule by mouth 3 times daily 90 capsule 5 09/06/2019 03/08/2020 ibuprofen (MOTRIN) 800 MG tablet 1 10/14/2016 04/18/2020 lidocaine (LMX 4) 4 % cream 06/12/2019 08/01/2020 magnesium 500 MG tablet Take 500 tablets by mouth DAILY. 11/19/2016 08/01/2020 [place]-3 Fatty Acids (FISH OIL) 1000 MG capsule Take 1,000 mg by mouth 3 times daily with meals. 11/19/2016 05/22/2021 pantoprazole EC (PROTONIX) 40 MG tabletIndications:Gastro esophageal reflux disease with esophagitis TAKE 1 TABLET BY MOUTH EVERY DAY 30 tablet 5 11/18/2019 03/22/2020 Riboflavin (B-2) 100 MG Take 1.7 mg [...] Contact Info) Description 07/25/2024 10:00 AM HEALTH SERVICES COORDINATOR Office [facility] - Endocrinology [address] [place] [phone] Yosi Bustamante MD [address] [place] [address] 2L [place] [address] 07/26/2024 10:00 AM HEALTH SERVICES COORDINATOR Appointment [facility] RAD [address] [place] [phone] Neri Delgado MD [address] [place] [address] 07/26/2024 10:00 AM HEALTH SERVICES COORDINATOR Office Visit [facility] - ENT [address] [place] [phone] Myra Farmer, FIRST LINE SUPERVISOR [address] [place] [address] 2L DIV [place] [address] 07/26/2024 11:15 AM HEALTH SERVICES COORDINATOR Office Visit [facility] - ENT [address] [place] [address] [phone] Neri Delgado MD [address] [place] [address] 08/02/2024 2:20 PM HEALTH SERVICES COORDINATOR Appointment [facility] [address] [place] [address] 08/02/2024 3:00 PM HEALTH SERVICES COORDINATOR Office Visit [facility] - Hematology/Oncology [address] [place] [address] [phone] Remi Beckett MD [address] [place] [phone] 08/18/2024 1:45 PM HEALTH SERVICES COORDINATOR Office Visit [facility] - ENT [address] [place] [address], [place] [phone] Neri Delgado MD [address] [place] [address] documented as of this encounter Procedures Procedure Name Priority Date/Time Associated Diagnosis Comments XR HIP LEFT 2VW OR MORE Routine 02/27/2020 1:12 PM CDT Arthralgia of hip, unspecified laterality documented in this encounter Results * XR HIP LEFT 2VW OR MORE (02/27/2020 1:12 PM CDT) Anatomical Region Laterality Modality Pelvis, Lower Extremity [facility] 02/27/2020 1:59 PM CDT Impressions 02/27/2020 [...] is present. There is severe arthritis with ovlx-wc-fqmn contact, subchondral sclerosis, cysts, and osteophytes. Coexisting [...] is present. There is severe arthritis with lenw-ec-iwbk contact, subchondral sclerosis, cysts, andosteophytes. Coexisting femoral [...] Visit Diagnoses Diagnosis Arthralgia of hip, unspecified laterality documented in this encounter
--- OUTSIDE RECORDS SUMMARY | 2024-07-23 07:30 | XMS_ITS | Encounter Summary ---
Author Organization [facility] Health Address [address] [facility] [place] [address] Care Team Providers Care Tank Wagon Operator Name Role Phone Unavailable Primary Care Provider Unavailabl e Reason for Visit * Radiology Services (Routine) - Closed Specialty Diagnoses / Procedures Referred By Yuan t Referred To Contact Ultrasound Diagnoses Thyroid nodule Procedures US THYROID Marylu Marie DO [address] [facility] 2L DIV OF [facility] [place] [address] [phone] Referral ID Status Reason Start Date Expiration Date Visits Re quested Visits Authorized [id number] Closed 02/15/2020 02/14/2021 1 1 Encounter Details Date Type Department Care Team (Latest Contact Info) Description 03/07/2020 2:30 PM CDT - 03/07/2020 2:31 PM CDT Hospital Encounter [address] [phone] Marylu Marie DO [address] [place] [address] 2L DIV OF [facility] [place] [address] Discharge Disposition: Home or Self Care Social [...] EVERY DAY 30 tablet 5 03/08/2020 09/02/2020 cetirizine (ZYRTEC) 10 MG tabletIndications:Allerg ic rhinitis, [...] fluticasone propionate (FLONASE) 50 MCG/ACT nasal spray [place] 2 sprays into each nostril 16 g 09/06/2019 04/11/2021 folic acid 400 MCG tablet Take 400 mcg by mouth DAILY. 11/19/2016 08/01/2020 gabapentin (NEURONTIN) 300 MG capsuleIndications:Prima ry osteoarthritis of left hip TAKE 1 CAPSULE BY MOUTH THREE TIMES A DAY 90 capsule 5 03/08/2020 09/06/2020 gabapentin (NEURONTIN) 300 MG capsuleIndications:Prima ry osteoarthritis [...] of Function 60 tablet 2 02/27/2020 07/16/2020 [place]-3 Fatty Acids (FISH OIL) 1000 MG capsule [...] Contact Info) Description 07/25/2024 10:00 AM COMMUNITY SERVICES MANAGER Office Visit [facility] - Endocrinology [address] [place] [phone] Yosi Bustamante MD [address] [place] [address] [place] [address] 07/26/2024 10:00 AM COMMUNITY SERVICES MANAGER Appointment [facility] DI[facility]IC RAD [address] [place] [phone] Neri Delgado MD [address] [place] [address] 07/26/2024 10:00 AM COMMUNITY SERVICES MANAGER Office Visit [facility] - ENT [address] [place] [address] [phone] Myra Farmer, SILK CREPE MACHINE OPERATOR [address] [place] [address] [place] [phone] 07/26/2024 11:15 AM COMMUNITY SERVICES MANAGER Office Visit [facility] - [facility]NT [address] [place] [phone] Neri Delgado MD [address] [place] [address] 08/02/2024 2:20 PM COMMUNITY SERVICES MANAGER Appointment [facility] [address] [place] [address] 08/02/2024 3:00 PM COMMUNITY SERVICES MANAGER Office Visit [facility] - Hematology/Oncology [address] [place] [address] [phone] Remi Beckett MD [address] [place] [phone] 08/18/2024 1:45 PM COMMUNITY SERVICES MANAGER Office Visit [facility] - ENT [address] [place] [phone] Neri Delgado MD [address] [place] [address] documented as of this encounter Procedures Procedure Name Priority Date/Time Associated Diagnosis Comments US THYROID Routine 03/07/2020 3:06 PM CDT Thyroid nodule documented in this encounter Results * US THYROID (03/07/2020 3:06 PM CDT) Anatomical Region Laterality Modality Chest Ultrasound 03/07/2020 2:58 PM CDT Impressions 03/12/2020 9:04 AM CDT [...] its size. Dictated by Kendall Quiroz MD (Occupational Health Physician) I, Dr. SARAH CARRENO M.D. have personally reviewed and interpreted this examination/study. This report was electronically signed by SARAH CARRENO M.D. ??on 03/12/2020 9:04 AM . Narrative [...] TR 4 nodule, recommend short-term follow-up (image [id number]). The second nodule is well-circumscribed, hypoechoic, solid nodule, measuring 0.6 x 0.6 x 0.3 cm; this is a TR 4 nodule, which is not suspicious (image [id number]). The isthmus is mildly thickened. Vascularity of the thyroid is normal. Procedure Note Sarah Carreno MD - 03/12/2020 EXAMINATION: Thyroid sonogram HISTORY: [...] TR 4 nodule, recommend short-term follow-up (image [id number]). The second nodule is well-circumscribed, hypoechoic, solid nodule, measuring 0.6 x 0.6 x 0.3 cm; this is a TR 4 nodule, which is not suspicious (image [id number]). The isthmus is mildly thickened. Vascularity of [...] its size. Dictated by Kendall Quiroz MD (Occupational Health Physician) I, Dr. SARAH CARRENO M.D. have personally reviewed and interpreted this examination/study. This report was electronically signed by SARAH CARRENO M.D. on 03/12/2020 9:04 AM . Marylu GARCIA ORDERABLES documented in this encounter Visit Diagnoses Diagnosis Thyroid nodule Nontoxic uninodular goiter documented in this encounter
--- OUTSIDE RECORDS SUMMARY | 2024-07-23 07:30 | XMS_ITS | Encounter Summary ---
Author Organization [facility] Health Address [address] [facility] [place] [address] Care Team Providers Care Paving Inspector Name Role Phone Unavailable Primary Care Provider Unavailabl e Encounter Details Date Type Department Care Team (Latest Contact Info) Description 01/12/2020 Travel Social History Tobacco Use Types Packs/Day [...] have Coronavirus / COVID-19? Unable to assess 01/12/2020 3:54 PM CDT documented as of this encounter Plan of Treatment Upcoming Encounters Date Type Department Care Team (Late st Contact Info) Description 07/25/2024 10:00 AM ORAL SURGERY TECHNICIAN Office Visit [facility] - Endocrinology [address] [place] [address], [place] [phone] Yosi Bustamante MD [address] [place] [address] [place] [address] 07/26/2024 10:00 AM ORAL SURGERY TECHNICIAN Appointment [facility] [address] [place] [phone] Neri Delgado MD [facility] [place] [address] 07/26/2024 10:00 AM ORAL SURGERY TECHNICIAN Office Visit [facility] - ENT [address] [place] [phone] Myra Farmer, VENDING MECHANIC [address] [place] [address] [place] [phone] 07/26/2024 11:15 AM ORAL SURGERY TECHNICIAN Office Visit [facility]NT [address] [place] [phone] Neri Delgado MD [address] [place] [phone] 08/02/2024 2:20 PM ORAL SURGERY TECHNICIAN Appointment [facility] [address] [place] [address] 08/02/2024 3:00 PM ORAL SURGERY TECHNICIAN Office Visit [facility] Group - Hematology/Oncology [address] [place] [phone] Remi Beckett MD [address] [place] [address] [phone] 08/18/2024 1:45 PM ORAL SURGERY TECHNICIAN Office Visit [facility] [address] [place] [address] [phone] Neri Delgado MD [address] [place] [address] documented as of this encounter Visit Diagnoses Not on filedocumented in this encounter
--- OUTSIDE RECORDS SUMMARY | 2024-07-23 07:30 | XMS_ITS | Encounter Summary ---
Author Organization [facility] Health Address [address] [facility] [place] [address] Care Team Providers Care Plant Taxonomist Name Role Phone Unavailable Primary Care Provider Unavailabl e Encounter Details Date Type Department Care Team (Latest Contact Info) Description 03/07/2020 2:32 PM CDT - 03/07/2020 11:59 PM CDT Hospital Encounter [facility] [address] [place] [phone] Marylu Marie DO [address] OF [facility] [place] [address] Discharge Disposition: Home or Self Care Social [...] fluticasone propionate (FLONASE) 50 MCG/ACT nasal spray [place] 2 sprays into each nostril 16 g [...] of Function 60 tablet 2 02/27/2020 07/16/2020 Ava-3 Fatty Acids (FISH OIL) 1000 MG capsule [...] Contact Info) Description 07/25/2024 10:00 AM SECURITY PROFESSIONALS Office Visit [facility] - Endocrinology [address] [place] [phone] Yosi Bustamante MD [address] [place] [address] 2L [place] [address] 07/26/2024 10:00 AM SECURITY PROFESSIONALS Appointment [facility] [address] [place] [address] Neri Delgado MD [address] [place] [address] 07/26/2024 10:00 AM SECURITY PROFESSIONALS Office Visit [facility] - ENT [address] [place] [phone] Myra Farmer, [employer] SU[employer] [address] [place] [address] 2L [place] [address] 07/26/2024 11:15 AM SECURITY PROFESSIONALS Office Visit [facility] ENT [address] [place] [phone] Neri Delgado MD [address] [place] [address] 08/02/2024 2:20 PM SECURITY PROFESSIONALS Appointment [facility] [address] [place] [address] 08/02/2024 3:00 PM SECURITY PROFESSIONALS Office Visit [facility] - Hematology/Oncology [address] [place] [phone] [place] [address] [place] [phone] 08/18/2024 1:45 PM SECURITY PROFESSIONALS Office Visit [facility] - ENT [address] [place] [phone] Neri Delgado MD [address] [place] [phone] documented as of this encounter Procedures Procedure Name Priority Date/Time Associated Diagnosis Comments HEPATITIS C AB SCREEN RFLX NAAT QUANT Routine 03/07/2020 3:19 PM CDT Encounter for hepatitis C screening test for low risk patient HEMOGLOBIN A1C Routine 03/07/2020 3:19 PM CDT Diabetes mellitus screening CBC W/O DIFFERENTIAL Routine 03/07/2020 3:19 PM CDT Well adult exam COMPREHENSIVE METABOLIC PANEL Routine 03/07/2020 3:19 PM CDT Hyperlipidemia, unspecified hyperlipidemia type TSH Routine 03/07/2020 3:19 PM CDT Thyroid nodule LIPID PROFILE Routine 03/07/2020 3:19 PM CDT Hyperlipidemia, unspecified hyperlipidemia type documented in this encounter Results * (ABNORMAL) COMPREHENSIVE METABOLIC PANEL (03/07/2020 3:19 PM CDT) BUN 13 7 - 26 mg/dL 03/07/2020 4:12 PM CDT [facility] Creatinine 0.8 0.6 - 1.2 mg/dL 03/07/2020 4:12 PM [facility] Sodium 143 136 - 145 mmol/L 03/07/2020 4:12 PM [facility] Potassium 3.9 3.5 - 4.5 mmol/L 03/07/2020 4:12 PM [facility] Chloride 106 98 - 107 mmol/L 03/07/2020 4:12 PM [facility] CO2 33(H) 22 - 29 mmol/L 03/07/2020 4:12 PM [facility] Glucose 57(L) 70 - 115 mg/dL 03/07/2020 4:12 PM [facility] Calcium 8.8 8.4 - 10.2 mg/dL 03/07/2020 4:12 PM [facility] Protein Total 7.1 6.0 - 8.3 g/dL 03/07/2020 4:12 PM [facility] Albumin 3.8 3.4 - 5.0 g/dL 03/07/2020 4:12 PM [facility] Bilirubin Total 0.5 0.2 - 1.2 mg/dL 03/07/2020 4:12 PM [facility] Alkaline Phosphatase 94 40 - 150 Units/L 03/07/2020 4:12 PM [facility] ALT 26 0 - 55 Units/L 03/07/2020 4:12 PM [facility] AST 23 5 - 34 Units/L 03/07/2020 4:12 PM [facility] Anion Gap 8 8 - 18 03/07/2020 4:12 PM [facility] BUN/Creatinine Ratio 16 7 - 23 03/07/2020 4:12 PM [facility] Osmolality Calculated 294 270 - 300 mOsm/kg 03/07/2020 4:12 PM [facility] Albumin/Globulin Ratio 1.2 1.1 - 2.3 03/07/2020 4:12 PM [facility] eGFR >60 >60 mL/min/1.7 3 m2 03/07/2020 4:12 PM [facility] Blood BLOOD SPECIMEN / Unknown Lab Venipuncture / Unknown 03/07/2020 3:19 PM CDT 03/07/2020 3:45 PM CDT Marylu Marie DO LAB - CHEMISTRY [facility] Performing Organization Address [facility]/ZIP Co de Phone Number [facility] [address] [place], [place] [phone], [facility] [phone] * LIPID PROFILE (03/07/2020 3:19 PM CDT) Cholesterol Total 150 <200 mg/dL 03/07/2020 4:12 PM CDT [facility] HDL 51 >40 mg/dL 03/07/2020 4:12 PM CDT [facility] Comment: ATP III Classification of HDL Cholesterol: ? <40 mg/dL: ??Considered a major risk factor. ? >60 mg/dL: ??Considered a negative risk factor. ? LDL Calculated 80 <100 mg/dL 03/07/2020 4:12 PM CDT [facility] Comment: ATP III Classification of LDL Cholesterol: ?<100 mg/dL: ??Optimal ? 100 - 129 mg/dL: ??Near Optimal/Above Optimal ? 130 - 159 mg/dL: ??Borderline High ? 160 - 189 mg/dL: ??High ?>190 mg/dL: ??Very High ? Triglycerides 93 <150 mg/dL 03/07/2020 4:12 PM CDT [facility] Comment: ATP III Classification of Triglycerides: ?<150 mg/dL: ??Normal ? 150 - 199 mg/dL: ??Borderline High ? 200 - 400 mg/dL: ??High ?>500 mg/dL: ??Very High Blood BLOOD SPECIMEN / Unknown Lab Venipuncture / Unknown 03/07/2020 3:19 PM CDT 03/07/2020 3:45 PM CDT Marylu Marie DO LAB - CHEMISTRY [place] [place] [address] [place] [address], [facility] [phone] * HEMOGLOBIN A1C (03/07/2020 3:19 PM CDT) Pathologist [facility] Hemoglobin A1c 5.5 4.4 - 6.3 % 03/08/2020 9:49 AM CDT [facility] Estimated Average Glucose 111 mg/dL 03/08/2020 9:49 AM CDT [facility] Comment: HbA1c Interpretation: Treatment target values recommended by ADA and other clinical organizations should be used to evaluate metabolic control in patients. Treatment Target Values: Normal : < 5.7% Pre-diabetes: 5.7-6.4% Diabetes: Equal to or greater than 6.5% Reference: [place] [employer] Standards of Care in Diabetes -2014 In patients 70 years and older consider HbA1c target range of 7.0-7.5% Reference: ??Diabetes Mellitus in Older People: Position Statement on behalf of the International Association of Gerontology and Geriatrics (IAGG), the Diabetes Working Democrat for Older People (EDWPOP), and the International Task Force of Experts in Diabetes. ??Jus Blackman, et al. J [place] [employer] Association. 2012 Test results diagnostic of diabetes should be repeated for confirmation. The Sebia Capillary 2 assay for the measurement of HbA1c is a National Glycohemoglobin Standardization Program (NGSP)certified method. Blood BLOOD SPECIMEN / Unknown Lab Venipuncture / Unknown 03/07/2020 3:19 PM CDT 03/07/2020 3:43 PM CDT Marylu Marie DO LAB - CHEMISTRY [place] [address] [place] [address], [facility] [phone] * HEPATITIS C AB SCREEN RFLX NAAT QUANT (03/07/2020 3:19 PM CDT) [facility] Hepatitis C Antibody Non-react oswaldo Non-reac tive 03/07/2020 4:28 PM CDT [facility] Comment:Hepatitis C Antibody screen indicates no [...] 3:19 PM CDT 03/07/2020 3:43 PM CDT [facility] LAB - CHEMISTRY [facility] Performing Organization Address City/[facility]/ZIP Co de Phone Number [address] [address], [facility] [phone] * TSH (03/07/2020 3:19 PM CDT) Pathologist [facility] TSH 1.520 0.350 - 4.940 uIU/mL 03/07/2020 4:30 PM CDT [facility] Blood BLOOD SPECIMEN / Unknown Lab Venipuncture / Unknown 03/07/2020 3:19 PM CDT 03/07/2020 3:45 PM CDT [facility] LAB - CHEMISTRY [facility] [address] [address], [facility] [phone] * CBC W/O DIFFERENTIAL (03/07/2020 3:19 PM CDT) Pathologist [facility] WBC 7.9 3.5 - 10.5 10? 3 /uL 03/07/2020 4:02 PM CDT [facility] RBC 4.54 3.90 - 5.00 10? 6 /uL 03/07/2020 4:02 PM T [facility] Hemoglobin 13.3 12.0 - 15.5 g/dL 03/07/2020 4:02 PM T [facility] Hematocrit 40.5 35.0 - 45.0 % 03/07/2020 4:02 PM T [facility] MCV 89.2 81.0 - 97.0 fL 03/07/2020 4:02 PM T [facility] MCH 29.3 28.0 - 34.0 pg 03/07/2020 4:02 PM [facility] 32.8 32.0 - 36.0 g/dL 03/07/2020 4:02 PM [facility] Platelet Count 266 150 - 400 10? 3 /uL 03/07/2020 4:02 PM T [facility] RDW-SD 41.3 36.0 - 50.0 fL 03/07/2020 4:02 PM [facility] RDW-CV 12.5 11.2 - 14.8 % 03/07/2020 4:02 PM [facility] MPV 9.8 9.3 - 12.8 fL 03/07/2020 4:02 PM [facility] nRBC Absolute 0.00 0 10? 3 /uL 03/07/2020 4:02 PM [facility] nRBC Auto 0.0 0 /100 WBC 03/07/2020 4:02 PM [facility] Blood BLOOD SPECIMEN / Unknown Lab Venipuncture / Unknown 03/07/2020 3:19 PM CDT 03/07/2020 3:43 PM CDT Marylu Marie DO LAB - HEMATOLOGY ORD ERABLES Performing Organization Address City/State/[facility] Co de Phone Number [facility] [address] [place] [phone], [facility] [phone] documented in this encounter Visit Diagnoses Diagnosis Well adult exam Routine general medical examination at a health care facility Thyroid nodule Nontoxic uninodular goiter Encounter for hepatitis C screening test for low risk patient Diabetes mellitus screening Screening for diabetes mellitus Hyperlipidemia, unspecified hyperlipidemia type documented in this encounter
--- OUTSIDE RECORDS SUMMARY | 2024-07-23 07:30 | XMS_ITS | Encounter Summary ---
Author Organization [facility] Health Address [address] [facility] [place] [address] Care Team Providers Care Demolition Expert Name Role Phone Unavailable Primary Care Provider Unavailabl e Reason for Visit * Reason Onset Date Comments Order 02/01/2020 Encounter Details Date Type Department Care Team (Late st Contact Info) Description 02/01/2020 Telephone [facility] [address] [facility] [address] [place] [address] Marylu Marie DO [address] OF [facility] [place] [address] Order Social History Tobacco Use Types Packs/Day Years [...] PM CDT documented as of this encounter Miscellaneous Notes * Telephone Encounter - Lyudmila Stafford - 02/02/2020 1:37 PM CDT Order has been faxed per request * Telephone Encounter - Andria Anaya DO - 02/02/2020 10:30 AM CDT New order placed. Forwarded to [facility] front end assistant to print and fax. * Telephone Encounter - Haleigh Delgadillo, JOSY - 02/01/2020 2:01 PM CDT Marcelle Train Gate Attendant is calling from [facility] asking for Dr. Anaya to please Sign the pt's order for Mammogram Screening ICD-10 Code Z12.31, as pt is Medicaid, and TNs apprised her that Medicaid is not longer accepting Student Resident NPI's, all orders must be signed by the Attending. documented in this encounter Plan of Treatment Upcoming Encounters Date Type Department Care Team (Late st Contact Info) Description 07/25/2024 10:00 AM AUTOMOBILE SPRING REPAIRER Office Visit [facility] - Endocrinology [address] [place] [phone] Yosi Bustamante MD [address] [place] [address] 2L Div [place] [address] 07/26/2024 10:00 AM AUTOMOBILE SPRING REPAIRER Appointment [facility] RAD [address] [place] [phone] Neri Delgado MD [address] [place] [address] 07/26/2024 10:00 AM AUTOMOBILE SPRING REPAIRER Office Visit [facility] - ENT [address] [place] [phone] Myra Farmer, CAR STOWER [address] [place] [address] 2L [place] [phone] 07/26/2024 11:15 AM AUTOMOBILE SPRING REPAIRER Office Visit [facility] - ENT [address] [place] [phone] Neri Delgado MD [address] [place] [address] 08/02/2024 2:20 PM AUTOMOBILE SPRING REPAIRER Appointment [facility] [address] [place] [address] 08/02/2024 3:00 PM AUTOMOBILE SPRING REPAIRER Office Visit [facility] - Hematology/Oncology [address] [place] [phone] Remi Beckett MD [address] [place] [phone] 08/18/2024 1:45 PM AUTOMOBILE SPRING REPAIRER Office Visit [facility] - ENT [address] [place] [phone] Neri Delgado MD [address] [place] [address] documented as of this encounter Visit Diagnoses Diagnosis Breast cancer screening- Primary Breast screening, unspecified documented in this encounter
--- OUTSIDE RECORDS SUMMARY | 2024-07-23 07:30 | XMS_ITS | Encounter Summary ---
Author Organization [facility] Health Address [address] [facility] [address] Care Team Providers Care Referral Management Liaison Name Role Phone Unavailable Primary Care Provider Unavailabl e Reason for Visit * Reason Onset Date Comments MEDICATION REFILL 03/22/2020 Encounter Details Date Type Department Care Team (Late st Contact Info) Description 03/22/2020 [facility] [address] [place] [address], [place] [address] Marylu Marie DO [address] [place] [address] OF [facility] [place] [address] MEDICATION REFILL Social History Tobacco Use Types [...] encounter Miscellaneous Notes * Telephone Encounter - Jennifer Galo - 03/22/2020 8:43 AM CDT Refill Request Brisa Hogan ELE: 02/15/20May due: 08/22/20May scheduled: 08/22/20 LRF: 11/18/19 Qty Disp: 30 # of refills: 5 Allergies: No Known Allergies Pended Medication Order: Requested Prescriptions Pending Prescriptions Disp Refills ??? pantoprazole EC (PROTONIX) 40 MG tablet 30 tablet 5 Sig: Take 1 tablet by mouth once daily documented in this encounter Plan of Treatment Upcoming Encounters Date Type Department Care Team (Late st Contact Info) Description 07/25/2024 10:00 AM PLASMA PROCESSOR Office Visit [facility] - Endocrinology [address] [place] [phone] Yosi Bustamante MD [address] [place] [address] 2L [place] [address] 07/26/2024 10:00 AM PLASMA PROCESSOR Appointment [facility] [address] [place] [phone] Neri Delgado MD [address] [place] [phone] 07/26/2024 10:00 AM PLASMA PROCESSOR Office Visit [facility] - ENT [address] [place] [phone] Myra Farmer, PUBLIC SAFETY POLICE [address] [place] [address] 2L [place] [phone] 07/26/2024 11:15 AM PLASMA PROCESSOR Office Visit [facility] - ENT [address] [place] [phone] Neri Delgado MD [address] [place] [phone] 08/02/2024 2:20 PM PLASMA PROCESSOR Appointment [facility] [address] [place] [address] 08/02/2024 3:00 PM PLASMA PROCESSOR Office Visit [facility] - Hematology/Oncology [address] [place] [phone] Remi Beckett MD [address] [place] [phone] 08/18/2024 1:45 PM PLASMA PROCESSOR Office Visit [facility] ENT [address] [place] [phone] Neri Delgado MD [address] [place] [phone] documented as of this encounter Visit Diagnoses Diagnosis Gastroesophageal reflux disease with esophagitis documented in this encounter
--- OUTSIDE RECORDS SUMMARY | 2024-07-23 07:30 | XMS_ITS | Encounter Summary ---
Author Organization [facility] Health Address [address] [facility] [place] [address] Care Team Providers Care Communications Department Head Name Role Phone Unavailable Primary Care Provider Unavailabl e Reason for Visit * Consultation (Routine) - Closed Specialty Diagnoses / Procedures Referred By Yuan t Referred To Contact Orthopedics Diagnoses Primary osteoarthritis of left hip Marylu Marie DO [address] [place] [address] DIV [facility] [place] [address] Cesar Brooks MD [address] [facility] [address] [place] [address] Referral ID Status Reason Start Date Expiration Date V isits Requested Visits Authorized [id number] Closed Specialty Services Required 02/15/2020 02/14/2021 1 1 Encounter Details Date Type Department Care Team (Latest Contact Info) Description 02/27/2020 1:30 PM CDT Office Visit [facility] - Orthopedics [address] [place] [address], [place] [phone] Cesar Brooks MD [address] [facility] [address] [place], [place] [id number] Primary osteoarthritis of left hip (Primary Dx) [...] - Inhaled Oxygen Concentration - - Weight 68.5 kg (151 lb) 02/27/2020 1:57 PM CDT Height - - Body Mass Index 29.49 11/23/2019 10:13 AM CDT documented in this encounter Progress Notes * Cesar Brooks MD - 02/27/2020 3:30 PM CDT Patient presents for evaluation of left hip pain. She has had left pain for years getting worse over the last year. She saw another surgeon who said he would operate on her unless the quit smoking. She has not done any physical therapy for her hip. She complains of pain catching and grinding in theleft groin as well as radiation into her low back. She states she can not stand or walk for any prolonged period of time due to the severe hip pain. She states any motion hurts the left hip. She denies any right hip pain. She states she does have a bad back as well. She has taken gabapentin and ibuprofen with minimal improvement. She has not tried meloxicam. She continues to use nicotine. She knows she needs to stop. She denies any injuries to the hip previously. She denies any previous injections in the left hip. Current Outpatient Medications on File Prior to Visit Medication Sig Dispense Refill ??? atorvastatin (LIPITOR) 40 MG tablet Take 1 tablet by mouth at bedtime 30 tablet 11 ??? B Complex Vitamins (VITAMIN B COMPLEX) tablet Take by mouth DAILY. ??? cetirizine (ZYRTEC) 10 MG tablet Take 1 tablet by mouth once daily (Patient not taking: Reported on 02/15/2020) 30 tablet 5 ??? clobetasol (TEMOVATE) 0.05 % ointment Apply to affected area 2 times daily 60 g 0 ??? clonazePAM (KLONOPIN) 0.5 MG tablet ??? Cyanocobalamin (B-12) 100 MCG Take 6 mcg by mouth DAILY. ??? fluticasone propionate (FLONASE) 50 MCG/ACT nasal spray [place] 2 sprays into each nostril 16 g 0 ??? folic acid 400 MCG tablet Take 400 mcg by mouth DAILY. ??? gabapentin (NEURONTIN) 300 MG capsule Take 1 capsule by mouth 3 times daily 90 capsule 5 ??? ibuprofen (MOTRIN) 800 MG tablet 1 ??? lidocaine (LMX 4) 4 % cream ??? magnesium 500 MG tablet Take 500 tablets by mouth DAILY. ??? [place]-3 Fatty Acids (FISH OIL) 1000 MG capsule Take 1,000 mg by mouth 3 times daily with meals. ??? pantoprazole EC (PROTONIX) 40 MG tablet TAKE 1 TABLET BY MOUTH EVERY DAY 30 tablet 5 ??? PARoxetine (PAXIL) 40 MG tablet 2 ??? Riboflavin (B-2) 100 MG Take 1.7 mg by mouth DAILY. ??? traZODone (DESYREL) 100 MG tablet 1 ??? venlafaxine XR 24hr (EFFEXOR XR) 37.5 MG capsule Take 1 capsule by mouth DAILY. ??? vitamin E (TOCOPHERYL) 400 UNIT capsule Take 400 Units by mouth TID. ??? Zinc 50 MG Take 50 mg by mouth DAILY. No current facility-administered medications on file prior to visit. Past Medical History: Diagnosis Date ??? Anxiety and depression ??? Degenerative disc disease, lumbar ??? HLD (hyperlipidemia) ??? Osteoarthritis of one hip, left ??? Psoriasis Past Surgical History: Procedure Laterality Date ??? Section ??? ENDOSCOPY, COLON, DIAGNOSTIC no polyp ??? HX STERILIZATION ??? Polypectomy cervical Social History Occupational History ??? Not on file Tobacco Use ??? Smoking status: Current Every Day Smoker Packs/day: 0.50 Start date: 07/22/1973 ??? Smokeless tobacco: Never Used Substance and Sexual Activity ??? Alcohol use: No ??? Drug use: Not Currently Types: Cocaine, Marijuana Comment: ??? Sexual activity: Yes Partners: Male Family [...] Alive ??? None Known Sister Status: Alive Review of Systems Constitutional: Negative for chills, fever, malaise/fatigue and weight loss. Respiratory: Negative for shortness of breath. Cardiovascular: Negative for claudication and leg swelling. Musculoskeletal: Positive for back pain and joint pain. Negative for falls. Skin: Negative for itching and rash. Neurological: Negative for focal weakness. All other systems reviewed and are negative. Physical exam: Patient is awake and alert Facial expressions are appropriate with a mask in place Height is 5 ft and weight is 151 lb for a BMI of 29.5 Patient is cooperative with the examination Examination of the left hip reveals pain with any range of motion. I can flex her to 90, abduction 20, adduction neutral, internal rotation of neutral, external rotation of 20 with pain at all extremes. She has a positive Stinchfield straight leg raise test. She is short about 5 mm on the left vance red to the right. Distally she can dorsiflex and plantar flex her ankle and toes without difficulty X-rays: AP pelvis and AP and lateral the left hip reveals severe osteoarthritis of the left hip with joint space obliteration, sclerosis, and osteophyte formation with subchondral cyst formation Assessment: Severe left hip osteoarthritis Plan: We discussed trying a different anti-inflammatory and we will prescribe meloxicam. We discussed physical therapy and gave her a prescription for this. We discussed medical and dental clearancesand she will start working on these as she continues to work on quitting her nicotine. We discussedshe would have to be off all patches or gums before any surgical intervention. We will see her back3 weeks after she is off all nicotine for possible surgical discussions and scheduling. Patient understood the treatment plan all questions were answered documented in this encounter Plan of Treatment Upcoming Encounters Date Type Department Care Team (Late st Contact Info) Description 07/25/2024 10:00 AM TEXTILE BAG SEWER Office Visit [facility] - Endocrinology [address] [facility], [place] [phone] Yosi Bustamante MD [address] [place] [address] [address] [place] [address] 07/26/2024 10:00 AM TEXTILE BAG SEWER Appointment [facility] [address] [place] [phone] Neri Delgado MD [address] [place] [phone] 07/26/2024 10:00 AM TEXTILE BAG SEWER Office Visit [facility] - ENT [address] [place] [phone] Myra Farmer, LICENSED APPRAISER [address] [place] [address] [address] [place] [phone] 07/26/2024 11:15 AM TEXTILE BAG SEWER Office Visit [facility] - ENT [address] [place] [phone] Neri Delgado MD [address] [place] [phone] 08/02/2024 2:20 PM TEXTILE BAG SEWER Appointment [facility] [address] [place] [phone] 08/02/2024 3:00 PM TEXTILE BAG SEWER Office Visit [facility] - Hematology/Oncology [address] [place] [phone] Remi Beckett MD [address] [place] [phone] 08/18/2024 1:45 PM TEXTILE BAG SEWER Office Visit [facility] - ENT [address] [place] [phone] Neri Delgado MD [address] [place] [phone] documented as of this encounter Visit Diagnoses Diagnosis Primary osteoarthritis of left hip- Primary Primary localized osteoarthrosis, pelvic region and thigh documented in this encounter
--- OUTSIDE RECORDS SUMMARY | 2024-07-23 07:30 | XMS_ITS | Encounter Summary ---
Author Organization [facility] Health Address [address] [facility] [place] [address] Care Team Providers Care Gum Cook Name Role Phone Unavailable Primary Care Provider Unavailabl e Reason for Referral * Radiology Services (Routine) - Closed Specialty Diagnoses / Procedures Referred By Yuan t Referred To Contact Ultrasound Diagnoses Thyroid nodule Procedures US THYROID [place]ates[place]lu manzano, DO [address] [facility] 2[address] [facility] [place] [address] [facility] [address] [place] [address] Referral ID Status Reason Start Date Expiration Date Visits Re quested Visits Authorized [id number] Closed 02/15/2020 02/14/2021 1 1 * Consultation (Routine) - Closed Specialty Diagnoses / Procedures Referred By Contac t Referred To Contact Orthopedics Diagnoses Primary osteoarthritis of left hip [place] EstatesMarylu manzano, DO [address] [facility] [address] [facility] [place] [address] Cesar Brooks MD [address] [facility] [address] [place] [address] Referral ID Status Reason Start Date Expiration Date V isits Requested Visits Authorized [id number] Closed Specialty Services Required 02/15/2020 02/14/2021 1 1 Reason for Visit * Reason Comments Follow-up Encounter Details Date Type Department Care Team (Late st Contact Info) Description 02/15/2020 3:00 PM CDT Office Visit [facility] Internal Medicine [address] [place] [address] [place] EstatesMarylu manzano DO [address] [facility] [place] [address] Primary osteoarthritis of left hip (Primary Dx); Psoriasis; Tobacco use disorder; Thyroid nodule; Health care maintenance; Encounter for hepatitis C screening test for low risk patient; Hyperlipidemia, unspecified hyperlipidemia type; Diabetes mellitus screening Social History Tobacco Use Types Packs/Day Years [...] Sign Reading Time Taken Comments Blood Pressure 122/80 02/15/2020 3:44 PM CDT Pulse 74 02/15/2020 3:44 PM CDT Temperature 36.5 ??C (97.7 ??F) 02/15/2020 3:44 PM CD T Respiratory Rate - - Oxygen Saturation 97% 02/15/2020 3:44 PM CDT Inhaled Oxygen Concentration - - Weight 68.9 kg (152 lb) 02/15/2020 3:44 PM CDT Height - - Body Mass Index 29.69 11/23/2019 10:13 AM CDT documented in this encounter Patient Instructions * Patient Instructions* Cindi Mccormack - 02/15/2020 3:44 PM CDT How to Contact Us Between Office [...] to be seen. Please call us at [phone], option 1 thenoption 1 in the morning you would like to be seen. For scheduling routine appointments, requesting refills or leaving a message for your doctor, the office phone is [phone]. You will be given options to get to the assistance you need. Phone lines are open from 8:00 am to4:30 pm Wednesday through Wednesday. All prescription refills must be requested during regular office phone hours. Our fax number is [phone]. After hours urgent calls that cannot wait untill phone lines are open on the next day are given to the General Internal Medicine physician solutions architect consultant. Please call [phone]. Identify yourself as a patient in our practice and give the second floor operator your doctor's name. The second floor operator will contact the physician solutions architect consultant. You can generally expect a return call within 30 minutes. On weekends, physicians are seeing hospitalized patients and there maybe a longer wait. Visit our website at [email or web address] for information about our practice and an interactive health encyclopedia. Our clinic's missed appointment policy is: - Patients with 3 consecutively missed appointments OR 3 missed appointments in a 12 month period will no longer be seen by General Internal Medicine. They will be asked to seek Primary Care outside of [facility]. - A missed appointment is defined as: * An appointment cancelled less than 24 hours in advance *Arriving to a scheduled appointment too late to be seen (Patients who arrive to clinic later than their scheduled appointment time may not be seen) * Not showing up for an appointment Our office is on the move! Beginning March 04, your [facility] doctor will see you in a new location. [facility] Specialized Medicine 2nd Floor [address] [place] [address] documented in this encounter Progress Notes * Marylu Marie DO - 02/15/2020 3:00 PM CDT [facility] General Internal Medicine Established Patient Note CC: Chief Complaint Patient presents with ??? Follow-up History of Present Illness: Brisa Hogan is a 59 year old female with PMHx of lumbar DDD, osteoarthritis, mood disorder, and HLD presenting to [facility] for follow up. Left hip pain/low back pain - located in the left groin, ambulating with a cane, leg gives out, hearing crackle when moving the leg. Associated with muscle pain in the L leg. Unable to do therapy exercises due to pain. Ibuprofen and biofreeze for pain control. Gabapentin TID. Psychiatry every three months. Dr. Foster ([phone]). Doing virtual visits currently. Has a therapist as well - Vianey ([phone]). Tobacco use - insurance won't pay for hypnosis, was taking chantix and had weight gain so discontinued the medication. Smoking no more than 10 cigarettes per day. Does not finish the cigarettes. Tried quitting cold turkey and got down to 7 cigarettes but was unable to go down more. Dr. Bennett ([phone]) in GI in [place], [place] where she last had colonoscopy. Past Medical History: Reviewed and updated in [...] urinary frequency, urinary urgency, urinary incontinence MS: joint pain, muscle pain, back pain Neuro: focal weakness, numbness/tingling, LOC, lightheadedness, vertigo, headache Skin: rash Heme: easy bruising Endocrine: heat intolerance; cold intolerance, polyuria, polydipsia Physical Exam: BP 122/80 Pulse 74 Temp 97.7 ??F (36.5 ??C) (Oral) Wt 152 lb (68.9 kg) SpO2 97% BMI 29.69 kg/m2 Gen: NAD, conversational, pleasant, cooperative, Eyes: EOMI; anicteric, non-injected sclerae Mouth: moist oral mucous membrane Neck: supple with normal ROM; no thyromegaly CV: normal S1, S2; RRR; no murmurs appreciated, no LE edema bilaterally Pulm: CTAB; no wheezes or crackles GI: abd soft, NT to palpation; +BS MS: tenderness to palpation of L hip, ambulating with cane, slow gait Neuro: Clear speech, answering questions appropriately, no focal deficits noted Psych: AOx3; calm, congruent affect Skin: erythematous plaques on the extensor surfaces of the LE R>L Labs: Personally reviewed. Imaging/Other diagnostic testing: Personally reviewed. Pertinent for: Low dose CT 07/27/2019 Lung-RADS 1 negative, thyroid nodule noted in the right lobe measuring 4.2mm Assessment & Plan: 1. Primary osteoarthritis of left hip Present for years, previous xray of hip with degenerative changes. Seen previously by [facility] who instructed tobacco cessation prior to evaluation. Limiting mobility. Has participated in PT, currently unable to do exercises. - AMB REFERRAL TO ORTHOPEDICS; Future 2. Psoriasis Currently using topical clobetasol. May benefit from systemic therapy. Is not established with dermatology. - AMB REFERRAL TO DERMATOLOGY; Future 3. Tobacco use disorder Counseled patient on cessation. 4. Thyroid nodule Incidental finding, 4.2mm nodule noted in R lobe on low dose CT for lung cancer screening. - US THYROID; Future - TSH; Future 5. Health care maintenance No colonoscopy records available. Patient saw Dr. Bennett for last colonoscopy and believes this was within 10 years. Will obtain records at next office visit and bring to future appointment. 6. Encounter for hepatitis C screening test for low risk patient Reordered. - HEPATITIS C AB SCREEN RFLX NAAT QUANT; Future 7. Hyperlipidemia, unspecified hyperlipidemia type Reordered. Continue atorvastatin. - LIPID PROFILE; Future - COMPREHENSIVE METABOLIC PANEL; Future 8. Diabetes mellitus screening Reordered. - HEMOGLOBIN A1C; Future Preventative Care/Health Maintenance: Immunizations - Tdap: 02/2016 - Influenza: 03/2019 - PCV13: 06/2018 Colorectal cancer screening: patient will obtain records from Dr. Bennett Lung cancer screenin07/17/2019, Lung-RADS 1 Lipid screening: ordered DM screening: ordered Depression screening: PHQ-9 score of 11 Female specific HCM Cervical cancer screenin11/2019, negative for HPV or malignancy Breast ca screening: completed yesterday per patient, results pending Patient discussed with attending physician, Dr. Grimes, who agrees with my assessment and plan. Return to clinic in 6 months or PRN if worsening symptoms. Taniya Grimes MD 02/15/2020 11:47 PM Associated attestation - Taniya Grimes MD - 02/24/2020 11:47 PM CDT Attending Physician Attestation I saw and examined the patient with the resident, and I agree with the resident's history, physicalexam, and assessment and plan. Date of Service: 02/15/2020 Taniya Grimes MD documented in this encounter Plan of Treatment Upcoming Encounters Date Type Department Care Team (Late st Contact Info) Description 07/25/2024 10:00 AM LOUNGE CAR ATTENDANT Office Visit [facility] - Endocrinology [address] [place] [phone] Yosi Bustamante MD [address] [place] [address] 2L [place] [address] 07/26/2024 10:00 AM LOUNGE CAR ATTENDANT Appointment [facility] [address] [place] [phone] Neri Delgado MD [address] [place] [address] 07/26/2024 10:00 AM LOUNGE CAR ATTENDANT Office Visit [facility] - ENT [address] [place] [phone] Myra aFrmer, SECURITY COMPLIANCE SPECIALIST [address] [place] [address] 2L [place] [phone] 07/26/2024 11:15 AM LOUNGE CAR ATTENDANT Office Visit [facility] - ENT [address] [place] [phone] Neri Delgado MD [address] [place] [address] 08/02/2024 2:20 PM LOUNGE CAR ATTENDANT Appointment [facility] [address] [place] [phone] 08/02/2024 3:00 PM LOUNGE CAR ATTENDANT Office Visit [facility] Group - Hematology/Oncology [address] [place] [phone] Remi Beckett MD [address] [place] [phone] 08/18/2024 1:45 PM LOUNGE CAR ATTENDANT Office Visit [facility]ician Group - ENT [address] [place] [phone] Neri Delgado MD [address] [place] [phone] Scheduled Referrals Name Type Priority Associated Diagnoses Orde r Schedule AMB REFERRAL TO ORTHOPEDICS Outpatient Referral Routine Primary osteoarthritis of left hip 1 Occurrences starting 02/15/2020 until 02/14/2021 documented as of this encounter Results * (ABNORMAL) COMPREHENSIVE METABOLIC PANEL (03/07/2020 3:19 PM CDT) BUN 13 7 - 26 mg/dL 03/07/2020 4:12 PM [facility] Creatinine 0.8 0.6 - 1.2 mg/dL 03/07/2020 4:12 PM T [facility] Sodium 143 136 - 145 mmol/L 03/07/2020 4:12 PM CDT [facility] Potassium 3.9 3.5 - 4.5 mmol/L 03/07/2020 4:12 PM T [facility] Chloride 106 98 - 107 mmol/L 03/07/2020 4:12 PM T [facility] CO2 33(H) 22 - 29 mmol/L 03/07/2020 4:12 PM T [facility] Glucose 57(L) 70 - 115 mg/dL 03/07/2020 4:12 PM [facility] Calcium 8.8 8.4 - 10.2 mg/dL 03/07/2020 4:12 PM [facility] Protein Total 7.1 6.0 - 8.3 g/dL 03/07/2020 4:12 PM [facility] Albumin 3.8 3.4 - 5.0 g/dL 03/07/2020 4:12 PM [facility] Bilirubin Total 0.5 0.2 - 1.2 mg/dL 03/07/2020 4:12 PM [facility] Alkaline Phosphatase 94 40 - 150 Units/L 03/07/2020 4:12 PM [facility] ALT 26 0 - 55 Units/L 03/07/2020 4:12 PM [facility] AST 23 5 - 34 Units/L 03/07/2020 4:12 PM [facility] Anion Gap 8 8 - 18 03/07/2020 4:12 PM [facility] BUN/Creatinine Ratio 16 7 - 23 03/07/2020 4:12 PM [facility] Osmolality Calculated 294 270 - 300 mOsm/kg 03/07/2020 4:12 PM [facility] Albumin/Globulin Ratio 1.2 1.1 - 2.3 03/07/2020 4:12 PM [facility] eGFR >60 >60 mL/min/1.7 3 m2 03/07/2020 4:12 PM [facility] Blood BLOOD SPECIMEN / Unknown Lab Venipuncture / Unknown 03/07/2020 3:19 PM CDT 03/07/2020 3:45 PM CDT Marylu Marie DO LAB - CHEMISTRY ASH WEAVER [facility] [address] [place] [address], [facility] [phone] * LIPID PROFILE (03/07/2020 3:19 PM CDT) Cholesterol Total 150 <200 mg/dL 03/07/2020 4:12 PM [facility] HDL 51 >40 mg/dL 03/07/2020 4:12 PM T [facility] Comment: ATP III Classification of HDL Cholesterol: ? <40 mg/dL: ??Considered a major risk factor. ? >60 mg/dL: ??Considered a negative risk factor. ? LDL Calculated 80 <100 mg/dL 03/07/2020 4:12 PM T [facility] Comment: ATP III Classification of LDL Cholesterol: ?<100 mg/dL: ??Optimal ? 100 - 129 mg/dL: ??Near Optimal/Above Optimal ? 130 - 159 mg/dL: ??Borderline High ? 160 - 189 mg/dL: ??High ?>190 mg/dL: ??Very High ? Triglycerides 93 <150 mg/dL 03/07/2020 4:12 PM [facility] Comment: ATP III Classification of Triglycerides: ?<150 mg/dL: ??Normal ? 150 - 199 mg/dL: ??Borderline High ? 200 - 400 mg/dL: ??High ?>500 mg/dL: ??Very High Blood BLOOD SPECIMEN / Unknown Lab Venipuncture / Unknown 03/07/2020 3:19 PM CDT 03/07/2020 3:45 PM CDT Marylu Marie DO LAB - CHEMISTRY ASH WEAVER Performing Organization Address [facility]/State/ZIP Co de Phone Number [facility] [address] [place] [address], [facility] [phone] * HEMOGLOBIN A1C (03/07/2020 3:19 PM CDT) Hemoglobin A1c 5.5 4.4 - 6.3 % 03/08/2020 9:49 AM CDT [facility] Estimated Average Glucose 111 mg/dL 03/08/2020 9:49 AM T [facility] Comment: HbA1c Interpretation: Treatment target values recommended by ADA and other clinical organizations should be used to evaluate metabolic control in patients. Treatment Target Values: Normal : < 5.7% Pre-diabetes: 5.7-6.4% Diabetes: Equal to or greater than 6.5% Reference: [place] Diabetes Association Standards of Care in Diabetes -2014 In patients 70 years and older consider HbA1c target range of 7.0-7.5% Reference: ??Diabetes Mellitus in Older People: Position Statement on behalf of the International Association of Gerontology and Geriatrics (IAGG), the Diabetes Working Libertarian for Older People (EDWPOP), and the International Task Force of Experts in Diabetes. ??Jus Blackman, et al. J [employer] Medical Directors Association. 2012 Test results diagnostic of diabetes should be repeated for confirmation. The Sebia Capillary 2 assay for the measurement of HbA1c is a National Glycohemoglobin Standardization Program (NGSP)certified method. Blood BLOOD SPECIMEN / Unknown Lab Venipuncture / Unknown 03/07/2020 3:19 PM CDT 03/07/2020 3:43 PM CDT aMrylu Marie DO LAB - CHEMISTRY ASH WEAVER Performing Organization Address City/[facility]/ZIP Co de Phone Number [address] [address], [facility] [phone] * HEPATITIS C AB SCREEN RFLX NAAT QUANT (03/07/2020 3:19 PM CDT) Hepatitis C Antibody Non-react oswaldo Non-reac tive 03/07/2020 4:28 PM CDT [facility] Comment:Hepatitis C Antibody screen indicates [...] PM CDT 03/07/2020 3:43 PM CDT Marylu Garciahbach LAB - CHEMISTRY ASH [employer] [address] [address], [facility] [phone] * TSH (03/07/2020 3:19 PM CDT) TSH 1.520 0.350 - 4.940 uIU/mL 03/07/2020 4:30 PM CDT [facility] Blood BLOOD SPECIMEN / Unknown Lab Venipuncture / Unknown 03/07/2020 3:19 PM CDT 03/07/2020 3:45 PM CDT Marylu Marie DO LAB - CHEMISTRY SHANDRAE OWEN [address] [address], [facility] [phone] * US THYROID (03/07/2020 3:06 PM CDT) [...] its size. Dictated by Kendall Quiroz MD (Is Analyst) I, Dr. SARAH CARRENO M.D. have personally [...] TR 4 nodule, recommend short-term follow-up (image [id number]). The second nodule is well-circumscribed, hypoechoic, solid nodule, measuring 0.6 x 0.6 x 0.3 cm; this is a TR 4 nodule, which is not suspicious (image [id number]). The isthmus is mildly thickened. Vascularity of [...] TR 4 nodule, recommend short-term follow-up (image [id number]). The second nodule is well-circumscribed, hypoechoic, solid nodule, measuring 0.6 x 0.6 x 0.3 cm; this is a TR 4 nodule, which is not suspicious (image [id number]). The isthmus is mildly thickened. Vascularity of [...] its size. Dictated by Kendall Quiroz MD (Is Analyst) I, Dr. SARAH CARRENO M.D. have personally reviewed and interpreted this examination/study. This report was electronically signed by SARAH CARRENO M.D. on 03/12/2020 9:04 AM . Marylu GARCIA ORDERABLES documented in this encounter Visit Diagnoses Diagnosis Primary osteoarthritis of left hip- Primary Primary localized osteoarthrosis, pelvic region and thigh Psoriasis Other psoriasis Tobacco use disorder Thyroid nodule Nontoxic uninodular goiter Health care maintenance Unspecified general medical examination Encounter for hepatitis C screening test for low risk patient Hyperlipidemia, unspecified hyperlipidemia type Diabetes mellitus screening Screening for diabetes mellitus Thyroid nodule Nontoxic uninodular goiter documented in this encounter
--- OUTSIDE RECORDS SUMMARY | 2024-07-23 07:30 | XMS_ITS | Encounter Summary ---
Author Organization [facility] Health Address [address] [facility] [place] [address] Care Team Providers Care Insurance Law Specialist Name Role Phone Unavailable Primary Care Provider Unavailabl e Encounter Details Date Type Department Care Team (Latest Contact Info) Description 02/27/2020 12:57 PM CDT Hospital Encounter [facility] CSM [address] [facility] [place] [address] Cesar Brooks MD [address] [facility] [address] [place] [address] Discharge Disposition: Home or Self Care Social [...] fluticasone propionate (FLONASE) 50 MCG/ACT nasal spray Kinney 2 sprays into each nostril 16 g [...] 500 tablets by mouth DAILY. 11/19/2016 08/01/2020 Grabill-3 Fatty Acids (FISH OIL) 1000 MG capsule [...] Contact Info) Description 07/25/2024 10:00 AM CLINIC CMA [facility] [address] [place] [phone] Yosi Bustamante MD [address] [place] [address] 2L Div [place] [address] 07/26/2024 10:00 AM CLINIC CMA Appointment [facility] [address] [place] [address] Neri Delgado MD [address] [place] [phone] 07/26/2024 10:00 AM CLINIC CMA Office Visit [facility] - ENT [address] [place] [phone] Myra Farmer, ASSEMBLER ADJUSTER [address] [place] [address] 2L [place] [address] 07/26/2024 11:15 AM CLINIC CMA Office Visit [facility] - ENT [address] [place] [phone] Neri Delgado MD [address] [place] [address] 08/02/2024 2:20 PM CLINIC CMA Appointment [facility] [address] [place] [address] 08/02/2024 3:00 PM CLINIC CMA Office Visit [facility] - Hematology/Oncology [address] [place] [phone] Remi Beckett MD [address] [place] [phone] 08/18/2024 1:45 PM CLINIC CMA Office Visit [facility] - ENT [address] [place] [address], [place] [phone] Neri Delgado MD [address] [place] [address] documented as of this encounter Procedures Procedure Name Priority Date/Time Associated Diagnosis Comments XR PELVIS 1 OR 2VW Routine 02/27/2020 1: 12 PM CDT Arthralgia of hip, unspecified laterality [...] is present. There is severe arthritis with qkjs-[id number] contact, subchondral sclerosis, cysts, and osteophytes. Coexisting [...] is present. There is severe arthritis with vgoh-[id number] contact, subchondral sclerosis, cysts, andosteophytes. Coexisting femoral [...]
--- OUTSIDE RECORDS SUMMARY | 2024-07-23 07:30 | XMS_ITS | Encounter Summary ---
Author Organization [facility] Health Address [address] [place] [address] Care Team Providers Care Electroslag Welding Machine Operator Name Role Phone Unavailable Primary Care Provider Unavailabl e Encounter Details Date Type Department Care Team (Late Contact Info) Description 04/05/2020 Orders Only [facility] CSM [address] [facility], [place] [phone] Brandi Mock, WEB PRESS OPERATOR ASSISTANT-WATER QUALITY TECHNICIAN [address] [place] [address] FIRST LEVEL [place] [address] Thyroid nodule Social History Tobacco Use Types [...] (Late Contact Info) Description 07/25/2024 10:00 AM GEAR KEEPER Office Visit [facility] - Endocrinology [address] [facility], [place] [address] Yosi Bustamante MD [address] [place] [address] 2L [place] [address] 07/26/2024 10:00 AM GEAR KEEPER Appointment [facility] [address] [place] [phone] Neri Delgado MD [address] [place] [phone] 07/26/2024 10:00 AM GEAR KEEPER Office Visit [facility] - ENT [address] [place] [phone] Myra Farmer, METHODS STUDY ANALYST [address] [place] [address] [place] [phone] 07/26/2024 11:15 AM GEAR KEEPER Office Visit [facility] - ENT [address] [place] [phone] Neri Delgado MD [address] [place] [address] 08/02/2024 2:20 PM GEAR KEEPER Appointment [facility] [address] [place] [address] 08/02/2024 3:00 PM GEAR KEEPER Office Visit [facility] - Hematology/Oncology [address] [place] [phone] Remi Beckett MD [address] [place] [phone] 08/18/2024 1:45 PM GEAR KEEPER Office Visit [facility] [address] [place] [phone] Neri Delgado MD [address] [place] [phone] documented as of this encounter Visit Diagnoses Diagnosis Thyroid nodule- Primary Nontoxic uninodular goiter documented in this encounter
--- OUTSIDE RECORDS SUMMARY | 2024-07-23 07:30 | XMS_ITS | Encounter Summary ---
Author Organization [facility] Health Address [address] [place] [address] Care Team Providers Care Blockmason Name Role Phone Unavailable Primary Care Provider Unavailabl e Reason for Visit * Radiology Services (Routine) - Closed Specialty Diagnoses / Procedures Referred By Contac t Referred To Contact Ultrasound Diagnoses Thyroid nodule Procedures CT GUIDED NEEDLE BIOPSY THYROID (77270) US THYROID FNA Taniya Grimes MD [address] [facility] 2L DIV OF [facility] [place] [address] [facility] Us [address] [place] [address] Referral ID Status Reason Start Date Expiration Date Visits Re quested Visits Authorized [id number] Closed 03/27/2020 06/26/2020 1 1 Encounter Details Date Type Department Care Team (Latest Contact Info) Description 04/18/2020 12:42 PM CDT - 04/18/2020 4:59 PM CDT Hospital Encounter [facility] IVR [address] [place] [address] Taniya Grimes MD [address] [facility] 2L DIV OF [facility] [place] [address] Mina Rodsa MD [address] [address] [facility] Discharge Disposition: Home or Self Care Social History Tobacco Use Types Packs/Day Years Used Date Smoking Tobacco: Every Day Cigarettes 0.3 51 Started: 07/22/1973 Smokeless Tobacco: Never Tobacco Cessation:Ready to Q uit: No; Counseling Given: Yes Alcohol Use Standard Drinks/Week Comments No 0 [...] CD T documented as of this encounter Last Filed Vital Signs Vital Sign Reading Time Taken Comments Blood Pressure 138/86 04/18/2020 4:30 PM CDT Pulse 66 04/18/2020 4:30 PM CDT Temperature 36.2 ??C (97.1 ??F) 04/18/2020 4:25 PM CD T Respiratory Rate 17 04/18/2020 4:30 PM CDT Oxygen Saturation 100% 04/18/2020 4:30 PM CDT Inhaled Oxygen Concentration - - Weight 65.8 kg (145 lb) 04/18/2020 2:04 PM CDT Height 154.9 cm (5' 1) 04/18/2020 2:04 PM CDT Body Mass Index 27.4 04/18/2020 2:04 PM CDT documented in this encounter Medications at Time [...] fluticasone propionate (FLONASE) 50 MCG/ACT nasal spray Calhoun 2 sprays into each nostril 16 g [...] of Function 60 tablet 2 02/27/2020 07/16/2020 Eugene-3 Fatty Acids (FISH OIL) 1000 MG capsule [...] 11/19/2016 08/01/2020 documented as of this encounter Progress Notes * Marylu Camejo RN - 04/18/2020 4:55 PM CDT Dc instructions given as ordered; pt verbalized understanding. dressing to surgical site C/D/I. pt had no sedation and ambulated to parking lot accompanied by family * Conchis Wright RN - 04/18/2020 4:07 PM CDT Procedure completed tolerated well, VSS and no complaint of discomfort,BAND AID dressing applied which is clean,dry and intact . Moved to bay #17 without incident.Report given to Marylu FERRIS no questions or concerns * Conchis Wright RN - 04/18/2020 3:45 PM CDT Transported patient from from pre op area room #17, completed timeout with Vivi FERRIS. Admitted to IR CT Lab via stretcher without incident where patient will stay for procedure . Monitor attached VSS, no complaint of pain or discomfort. * Radha Mckenzie RN - 04/18/2020 1:30 PM CDT Pre-procedure instructions discussed with patient. Patient denies questions. documented in this encounter H&P Notes * Meg Quarles MD - 04/18/2020 3:41 PM CDT Vascular & Interventional Radiology Short Pre-Procedure History & Physical Patient: Brisa Hogan Age: [age] year old Date of : 1960 Date: 04/18/2020 Location: VIR Subjective: 59 year old female with right thyroid nodule planned for FNA (fine needle aspiration). Past Medical History: Diagnosis Date ??? Anxiety and depression ??? Degenerative disc disease, lumbar ??? HLD (hyperlipidemia) ??? Osteoarthritis of one hip, left ??? Psoriasis Past Surgical History: Procedure Laterality Date ??? Bilateral Tubal Ligation (BTL) ??? Section ??? ENDOSCOPY, COLON, DIAGNOSTIC no polyp ??? Polypectomy cervical Medications Prior to Admission Medication Sig Dispense Refill ??? atorvastatin (LIPITOR) [...] fluticasone propionate (FLONASE) 50 MCG/ACT nasal spray Calhoun 2 sprays into each nostril 16 g 0 ??? folic acid 400 MCG tablet Take 400 mcg by mouth DAILY. ??? gabapentin (NEURONTIN) 300 MG capsule TAKE 1 CAPSULE BY MOUTH THREE TIMES A DAY 90 capsule 5 ??? lidocaine (LMX 4) 4 % cream ??? magnesium 500 MG tablet Take 500 tablets by mouth DAILY. ??? meloxicam (MOBIC) 7.5 MG tablet Take 1 tablet by mouth once daily Reasons: Joint Damage causingPain and Loss of Function 60 tablet 2 ??? Eugene-3 Fatty Acids (FISH OIL) 1000 MG capsule [...] Take 50 mg by mouth DAILY. No Known Allergies Social History Tobacco Use ??? Smoking status: Current Every Day Smoker Packs/day: 0.25 Types: Cigarettes Start date: [...] systems reviewed were negative. Objective: Physical examination: Patient Vitals for the past 8 hrs: BP Pulse Resp SpO2 Height Weight 04/18/20 1415 116/57 75 14 97 % -- -- 04/18/20 1411 -- 71 10 99 % -- -- 04/18/20 1410 129/77 -- -- -- -- -- 04/18/20 1404 -- -- -- -- 1.549 m (5' 1) 65.8 kg (145 lb) General: well nourished, NAD Eyes: no scleral [...] results for input(s): INR in the last 44734 hours. Recent Labs Component Name 03/07/20 1519 NA 143 GLUCOSE 57* CREATININE 0.8 EGFR >60 Recent Labs Component Name 03/07/20 1519 ALB 3.8 TBILI 0.5 ALT 26 AST 23 ALKPHOS 94 Imaging: Relevant imaging studies were personally reviewed by myself and the IR attending. Assessment: 59 year old female with right thyroid nodule planned for FNA (fine needle aspiration). Plan: 1. Pertinent labs and relevant imaging studies were reviewed. 2. Informed consent was obtained from the patient after explaining the risks, benefits, and alternatives of the procedure. Risks include but are not limited to infection, bleeding, and injury to surrounding structures. 3. All questions were answered to the best of my ability. 4. Planned procedure: Image guided right thyroid nodule FNA. MEG QUARLES M.D; TYLER outbound telemarketer Chief, Vascular and Interventional Radiology Page: [phone] documented in this encounter OR Notes * Brief Op Note - Meg Quarles MD - 04/18/2020 4:04 PM CDT Vascular & Interventional Radiology Brief Post-Procedure Note Patient: Brisa Hogan Attending: Meg Quarles MD Banding Machine Operator: Kartik Greer MS4 Diagnosis/Indication: Right thyroid nodule Procedure: Image guided right thyroid nodule FNA was performed 4 passes were made and the sample was sent in cytofix. Anesthesia: Local with 1% Lidocaine Additional medications given: None Estimated blood loss: Minimal Specimens: FNA thyroid Immediate complications: None Follow-up: per team. Time out and final pre-procedure assessment completed immediately prior to start of procedure. Intra-procedure orders and medication record reviewed. Medications and doses administered by staff as verbally ordered. See detailed procedure note with images in PACS. documented in this encounter Plan of Treatment Upcoming Encounters Date Type Department Care Team (Late st Contact Info) Description 07/25/2024 10:00 AM OPERATING SYSTEMS PROGRAMMER Office Visit [facility] - Endocrinology [address] [place] [address], [place] [address] Yosi Bustamante MD [address] [place] [address] [place] [address] 07/26/2024 10:00 AM OPERATING SYSTEMS PROGRAMMER Appointment [facility] [address] [place] [address] Neri Delgado MD [address] [place] [address] 07/26/2024 10:00 AM OPERATING SYSTEMS PROGRAMMER Office Visit [facility] - ENT [address] [place] [phone] Myra Farmer, GREEN PIPEFITTER [address] [place] [address] [place] [phone] 07/26/2024 11:15 AM OPERATING SYSTEMS PROGRAMMER Office Visit [facility] - ENT [address] [place] [phone] Neri Delgado MD [address] [place] [address] 08/02/2024 2:20 PM OPERATING SYSTEMS PROGRAMMER Appointment [facility] [address] [place] [address] 08/02/2024 3:00 PM OPERATING SYSTEMS PROGRAMMER Office Visit [facility] - Hematology/Oncology [address] [place] [phone] Remi Beckett MD [address] [place] [phone] 08/18/2024 1:45 PM OPERATING SYSTEMS PROGRAMMER Office Visit [facility] - ENT [address] [place] [phone] Neri Delgado MD [address] [place] [address] documented as of this encounter Procedures Procedure Name Priority Date/Time Associated Diagnosis Comments CT GUIDED NEEDLE PLACEMENT Routine 04/18/2020 4:07 PM CDT Thyroid nodule FINE NEEDLE ASPIRATION - THYROID (STL) Routine 04/18/2020 4:07 PM CDT Thyroid nodule documented in this encounter Results * CT GUIDED NEEDLE BIOPSY THYROID (37592) (04/18/2020 4:07 PM CDT) Anatomical Region Laterality [...] 5), was referred for ultrasound-guided fine-needle aspiration. General Manager: Dr. Milan Quarles, Attending Physician Anesthesia: Local [...] (TR 5), wasreferred for ultrasound-guided fine-needle aspiration. General Manager: Dr. Milan Quarles, Attending Physician Anesthesia: Local [...] . Taniya Grimes MD CT ORDERABLES * FINE NEEDLE ASPIRATION - THYROID (STL) (04/18/2020 4:07 PM CDT) Case Report Medical Cytology Report ? Case: [id number] ? Authorizing Provider: ??Meg Quarles MD Collected: ? 04/18/2020 04:07 PM ? Ordering Location: ? [facility] ?Received: ?04/19/2020 07:09 AM ? Pathologist: ? Juli Dick MD ? Specimen: ?Thyroid, Right nodule ? 04/22/2020 11:14 AM CDT [facility] Specimen Adequacy Adequate cellularity for evaluation. 04/22/2020 11:14 AM CDT [facility] Final Diagnosis Thyroid nodule, right, US-FNA: - Benign - Consistent with benign follicular nodule 04/22/2020 11:14 AM [facility] Clinical History Thyroid nodule 04/22/2020 11:14 [facility] Gross Description 1 pap stained slide and 1 cell block from 30cc collection fluid. 04/22/2020 11:14 AM [facility] Microscopic Description Many follicular cells clusters with many of them showing Hurthle cell changes. Abundant colloid. Scant macrophages. 04/22/2020 11:14 AM [facility] Disclaimer The performance characteristics of all immunohistochemical and indirect immunofluorescence stains (if any) cited in this report were determined by the Histopathology Laboratory of [facility]. Some of these tests rely on the use of analyte-specific reagents and are subject to specific labeling requirements by the US Food and Drug Administration. Such tests were developed by the Histology Laboratory of [facility] and have not been cleared or [...] and interpreted by the attending (teaching) pathologist. 04/22/2020 11:14 AM [facility] Embedded Images 04/22/2020 11:[address] [facility] Pathology/Cytolo gy SPECIMEN FROM THYROID OBTAINED BY THYROIDECTOMY / Unknown Collection / Unknown 04/18/2020 4:07 PM CDT 04/19/2020 7:09 AM CDT Meg Quarles MD LAB - PATHOLOGY/C YTOLOGY ORDERABLES [facility] [address] [place], [place] [phone] [place] [address] documented in this encounter Visit Diagnoses Diagnosis Thyroid nodule Nontoxic uninodular goiter documented in this encounter Administered Medications Inactive Administered Medications - up to 3 most recent administrations Medication Order MAR Action Action Date Dose Rate Site lidocaine (XYLOCAINE) 1 % injection Subcutaneous, ONCE PRN, Starting on Josi 04/18/20 at 1555, Until Josi 04/18/20 at 1555 $ Given 04/18/2020 3:55 PM CDT 5 mL See C omments documented in this encounter Active and Recently Administered Medications Times are shown in CDT. PRN Medication Order 04/16/2020 04/17/2020 04/18/2020 lidocaine (XYLOCAINE) 1 % injection (COMPLETED) Subcutaneous, ONCE PRN, Starting on Josi 04/18/20 at 1555, Until Josi 04/18/20 at 1555 1555 ($ Given - Prov ider: Conchis Wright RN - Comment: to table) documented in this encounter
--- OUTSIDE RECORDS SUMMARY | 2024-07-23 07:30 | XMS_ITS | Encounter Summary ---
Author Organization [facility] Health Address [address] [facility] [place] [address] Care Team Providers Care Weights And Measures Inspector Name Role Phone Unavailable Primary Care Provider Unavailabl e Encounter Details Date Type Department Care Team (Late Contact Info) Description 03/14/2020 Orders Only [facility] [address] [place] [phone] Marylu Marie DO [address] [place] [address] OF [facility] [place] [address] Thyroid nodule Social History Tobacco Use Types [...] on file documented as of this encounter Progress Notes * Marylu Marie DO - 03/14/2020 4:00 PM CDT Referral placed for IR follow up of TR 5 thyroid nodule for evaluation and FNA. Communicated to patient via telephone. documented in this encounter Plan of Treatment Upcoming Encounters Date Type Department Care Team (Late Contact Info) Description 07/25/2024 10:00 AM AIRCRAFT CAPTAIN Office Visit [facility] - Endocrinology [address] [place] [phone] Yosi Bustamante MD [address] [place] [address] 2L [place] [address] 07/26/2024 10:00 AM AIRCRAFT CAPTAIN Appointment [facility] [address] [place] [address] Neri Delgado MD [address] [place] [address] 07/26/2024 10:00 AM AIRCRAFT CAPTAIN [facility] [address] [place] [phone] Myra Farmer, JEWEL HOLE FINISH OPENER [address] [place] [address] 2L [place] [phone] 07/26/2024 11:15 AM AIRCRAFT CAPTAIN Office Visit [facility] - ENT [address] [place] [phone] Neri Delgado MD [address] [place] [address] 08/02/2024 2:20 PM AIRCRAFT CAPTAIN Appointment [facility] [address] [place] [address] 08/02/2024 3:00 PM AIRCRAFT CAPTAIN Office Visit [facility] - Hematology/Oncology [address] [place] [phone] Remi Beckett MD [address] [place] [phone] 08/18/2024 1:45 PM AIRCRAFT CAPTAIN Office Visit [facility] - ENT [address] [place] [phone] Neri Delgado MD [address] [place] [address] documented as of this encounter Visit Diagnoses Diagnosis Thyroid nodule- Primary Nontoxic uninodular goiter documented in this encounter
--- OUTSIDE RECORDS SUMMARY | 2024-07-23 07:30 | XMS_ITS | Encounter Summary ---
Author Organization [facility] Health Address [address] [place] [address] Care Team Providers Care Senior Product Designer Name Role Phone Unavailable Primary Care Provider Unavailabl e Encounter Details Date Type Department Care Team (Latest Contact Info) Description 04/18/2020 Travel Social History Tobacco Use Types Packs/Day [...] CD T documented as of this encounter Plan of Treatment Upcoming Encounters Date Type Department Care Team (Late st Contact Info) Description 07/25/2024 10:00 AM DATABASE ADMINISTRATION PROJECT MANAGER Office Visit [facility] - Endocrinology [address] [place] [address], [place] [phone] Yosi Bustamante MD [address] [place] [address] [place] [address] 07/26/2024 10:00 AM DATABASE ADMINISTRATION PROJECT MANAGER Appointment [facility] [address] [place] [phone] Neri Delgado MD [facility] [place] [address] 07/26/2024 10:00 AM DATABASE ADMINISTRATION PROJECT MANAGER Office Visit [facility] - ENT [address] [place] [phone] Myra Farmer, STARTER MECHANIC [address] [place] [address] [place] [phone] 07/26/2024 11:15 AM DATABASE ADMINISTRATION PROJECT MANAGER Office Visit [facility] - ENT [address] [place] [phone] Neri Delgado MD [address] [place] [address] 08/02/2024 2:20 PM DATABASE ADMINISTRATION PROJECT MANAGER Appointment [facility] [address] [place] [address] 08/02/2024 3:00 PM DATABASE ADMINISTRATION PROJECT MANAGER Office Visit [facility] - Hematology/Oncology [address] [place] [phone] Remi Beckett MD [address] [place] [phone] 08/18/2024 1:45 PM DATABASE ADMINISTRATION PROJECT MANAGER Office Visit [facility] - ENT [address] [place] [phone] Neri Delgado MD [address] [place] [address] documented as of this encounter Visit Diagnoses Not on filedocumented in this encounter
--- OUTSIDE RECORDS SUMMARY | 2024-07-23 07:31 | XMS_ITS | Encounter Summary ---
Author Organization [facility] Health Address [address] [facility] [place] [address] Care Team Providers Care Vamp Maker Name Role Phone Unavailable Primary Care Provider Unavailabl e Encounter Details Date Type Department Care Team (Late st Contact Info) Description 01/12/2020 Orders Only [facility] [address] [place] [address] Marylu Marie DO [address] [facility] 2L DIV OF [facility] [place] [address] Screening mammogram, encounter for Social History Tobacco Use Types Packs/Day Years [...] PM CDT documented as of this encounter Progress Notes * Samanta Ortiz RN - 01/12/2020 4:35 PM CDT Order faxed and confirmed to [facility] as requested. * Marylu Marie DO - 01/12/2020 3:43 PM CDT Mammogram order placed to [facility]. documented in this encounter Plan of Treatment Upcoming Encounters Date Type Department Care Team (Late st Contact Info) Description 07/25/2024 10:00 AM RICE CLEANING MACHINE TENDER Office Visit [facility] - Endocrinology [address] [place] [phone] Yosi Bustamante MD [address] [place] [address] 2L [place] [address] 07/26/2024 10:00 AM RICE CLEANING MACHINE TENDER Appointment [facility] [address] [place] [address] Neri Delgado MD [address] [place] [address] 07/26/2024 10:00 AM RICE CLEANING MACHINE TENDER Office Visit [facility] - ENT [address] [place] [phone] Myra Farmer, HIGH MAN [address] [place] [address] 2L [place] [phone] 07/26/2024 11:15 AM RICE CLEANING MACHINE TENDER Office Visit [facility] - ENT [address] [place] [phone] Neri Delgado MD [address] [place] [address] 08/02/2024 2:20 PM RICE CLEANING MACHINE TENDER Appointment [facility] [address] [place] [address] 08/02/2024 3:00 PM RICE CLEANING MACHINE TENDER Office Visit [facility] - Hematology/Oncology [address] [place] [phone] [place] [address] [place] [phone] 08/18/2024 1:45 PM RICE CLEANING MACHINE TENDER Office Visit [facility] - ENT [address] [place] [phone] Neri Delgado MD [address] [place] [address] documented as of this encounter Visit Diagnoses Diagnosis Screening mammogram, encounter for- Primary documented in this encounter
--- OUTSIDE RECORDS SUMMARY | 2024-07-23 07:31 | XMS_ITS | Encounter Summary ---
Author Organization [facility] Health Address [address] [facility] [place] [address] Care Team Providers Care Center Human Resources Manager Name Role Phone Unavailable Primary Care Provider Unavailabl e Reason for Visit * Reason Onset Date Comments Medication Issue 09/26/2019 Encounter Details Date Type Department Care Team (Late st Contact Info) Description 09/26/2019 Telephone [facility] [address] [facility] [address] [place] [address] Marylu Marie DO [address] OF [facility] [place] [address] Medication Issue Social History Tobacco Use Types [...] Telephone Encounter - Marylu Marie DO - 09/26/2019 3:46 PM CDT Called patient regarding increase in heartburn symptoms. Began taking pepcid 20mg TID which did notalleviate symptoms. Notes resolution of symptoms with pepcid 40mg BID. Reports history of esophageal erosions. Instructed patient to discontinue pepcid. Will trial pantoprazole 40mg once daily and monitor symptoms. Requested call back if symptoms worsen or do not improve. Patient expressed understanding and was in agreement with plan. Discussed with attending physician, Dr. Anaya. Marylu Marie DO 09/26/2019 4:04 PM * Telephone Encounter - Tiffanie Crump, RN - 09/26/2019 9:48 AM CDT Patient has doubled pepcid to 40mg 2 times a day. Advised that she may be taking too much of this medication Please advise May need a med change [phone] documented in this encounter Plan of Treatment Upcoming Encounters Date Type Department Care Team (Late st Contact Info) Description 07/25/2024 10:00 AM INSURANCE ADMINISTRATIVE ASSISTANT [facility] [address] [place] [phone] Yosi Bustamante MD [address] [place] [address] 2L [place] [address] 07/26/2024 10:00 AM INSURANCE ADMINISTRATIVE ASSISTANT Appointment [facility] [address] [place] [address] Neri Delgado MD [address] [place] [address] 07/26/2024 10:00 AM INSURANCE ADMINISTRATIVE ASSISTANT Office Visit [facility] - ENT [address] [place] [phone] Myra Farmer, SOLAR SALES REP [address] [place] [address] 2L [place] [phone] 07/26/2024 11:15 AM INSURANCE ADMINISTRATIVE ASSISTANT Office Visit [facility] - ENT [address] [place] [phone] Neri Delgado MD [address] [place] [address] 08/02/2024 2:20 PM INSURANCE ADMINISTRATIVE ASSISTANT Appointment [facility] [address] [place] [address] 08/02/2024 3:00 PM INSURANCE ADMINISTRATIVE ASSISTANT Office Visit [facility] - Hematology/Oncology [address] [place] [phone] Remi Beckett MD [address] [place] [phone] 08/18/2024 1:45 PM INSURANCE ADMINISTRATIVE ASSISTANT Office Visit [facility] - ENT [address] [place] [phone] Neri Delgado MD [address] [place] [address] documented as of this encounter Visit Diagnoses Diagnosis Gastroesophageal reflux disease with esophagitis- Primary documented in this encounter
--- OUTSIDE RECORDS SUMMARY | 2024-07-23 07:31 | XMS_ITS | Encounter Summary ---
Author Organization [facility] Health Address [address] [facility] [place] [address] Care Team Providers Care Barrel Assembly Inspector Name Role Phone Unavailable Primary Care Provider Unavailabl e Reason for Visit * Reason Comments Refill Request Encounter Details Date Type Department Care Team (Late st Contact Info) Description 11/17/2019 Refill [facility] [address] [facility] 206 [place] [address] Marylu Marie DO [address] OF [facility] [place] [address] Refill Request Social History Tobacco Use Types [...] Telephone Encounter - Mellisa Vargas LPN - 11/17/2019 7:49 AM CDT Refill Request Brisa Hogan ELE: 09.06.19 NOV scheduled: 12.13.19 LRF: 09.26.19 Qty Disp: 30 # of refills: 1 Allergies: No Known Allergies Pended Medication Order: Requested Prescriptions Pending Prescriptions Disp Refills ??? pantoprazole EC (PROTONIX) 40 MG tablet [Pharmacy Med Name: PANTOPRAZOLE SOD DR 40 MG TAB] 30 tablet 1 Sig: TAKE 1 TABLET BY MOUTH EVERY DAY documented in this encounter Plan of Treatment Upcoming Encounters Date Type Department Care Team (Late st Contact Info) Description 07/25/2024 10:00 AM PROMOTOR GROUP TICKET SALES Office Visit [facility] - Endocrinology [address] [place] [phone] Yosi Bustamante MD [address] [place] [address] 2L [place] [address] 07/26/2024 10:00 AM PROMOTOR GROUP TICKET SALES Appointment [facility] [address] [place] [phone] Neri Delgado MD [address] [place] [address] 07/26/2024 10:00 AM PROMOTOR GROUP TICKET SALES Office Visit [facility] - ENT [address] [place] [phone] Myra Farmer, GASSER MACHINE OPERATOR [address] [place] [address] 2L [place] [phone] 07/26/2024 11:15 AM PROMOTOR GROUP TICKET SALES Office Visit [facility] - ENT [address] [place] [phone] Neri Delgado MD [address] [place] [address] 08/02/2024 2:20 PM PROMOTOR GROUP TICKET SALES Appointment [facility] [address] [place] [address] 08/02/2024 3:00 PM PROMOTOR GROUP TICKET SALES Office Visit [facility] - Hematology/Oncology [address] [place] [phone] Remi Beckett MD [address] [place] [phone] 08/18/2024 1:45 PM PROMOTOR GROUP TICKET SALES Office Visit [facility] [address] [place] [phone] Neri Delgado MD [facility]5 [place] [address] documented as of this encounter Visit Diagnoses Diagnosis Gastroesophageal reflux disease with esophagitis documented in this encounter
--- OUTSIDE RECORDS SUMMARY | 2024-07-23 07:31 | XMS_ITS | Encounter Summary ---
Author Organization [facility] Address [address] [place] [address] Care Team Providers Care Warp Dresser Name Role Phone Marylu Marie DO Unavailable [phone] Taniya Grimes MD Primary Care Provider Rocio Barcenas MD Unavailable Adriana Adams DO Unavailable Eliane Tillman MD Primary Care Provider [phone] Joseph Manaznares MD Primary Care Provider [phone] Taniya Grimes MD Primary Care Provider Joseph Manzanares MD Primary Care Provider [phone] Tiana Naylor DO Unavailable [phone] Tiana Naylor DO Primary Care Provider Joseph Manzanares MD Unavailable Yaya Villatoro MD Primary Care Provider [phone] Reason for Visit * Reason Onset Date Comments MEDICATION REFILL 09/14/2019 Encounter Details Date Type Department Care Team (Late st Contact Info) Description 09/14/2019 Refill [facility] [address] [place] [address] [place] [address] Marylu Marie DO [address] 2L [facility] INTERNAL MEDICINE [place], [place] [phone] MEDICATION REFILL Social History Tobacco Use Types [...] encounter Miscellaneous Notes * Telephone Encounter - Mario Hammond - 09/14/2019 9:41 AM CDT Patient requesting refills for the following Zyrtec 10 mg medications. Pt stated she was confused on her medications, and has not taken this medicine in over a year. Reports she does want a refill tohelp with her runny nose, and headaches ELE: 09/06/2019 NOV: 12/13/2019 Problem List Identified: office visit on Medication attached per refill protocol/guidlines for further review by provider yes PCP / Resident PCP verified yes Allergies Reviewed yes Pharmacy Reviewed yes Medication details entered yes Office visit within the last six months yes if not within last 6 months route to GIM-scheduling as well. Office visit greater than 12 months no routed to GIM scheduling ONLY no. documented in this encounter Plan of Treatment Upcoming Encounters Date Type Department Care Team (Late st Contact Info) Description 07/25/2024 10:00 AM YARN WORKER Office Visit [facility] Endocrinology [address] [place] [phone] Yosi Bustamante MD [address] [place] [address] [place] [address] 07/26/2024 10:00 AM YARN WORKER Appointment [facility] [address] [place] [phone] Neri Delgado MD [address] [place] [address] 07/26/2024 10:00 AM YARN WORKER Office Visit [facility] - ENT [address] [place] [phone] Myra Farmer, DYER HELPER [address] [place] [address] 2L [place] [phone] 07/26/2024 11:15 AM YARN WORKER Office Visit [facility] - ENT [address] [place] [phone] Neri Delgado MD [address] [place] [address] 08/02/2024 2:20 PM YARN WORKER Appointment [facility] [address] [place] [address] 08/02/2024 3:00 PM YARN WORKER Office Visit [facility] - Hematology/Oncology [address] [place] [phone] Remi Beckett MD [address] [place] [phone] 08/18/2024 1:45 PM YARN WORKER Office Visit [facility] - ENT [address] [place] [phone] Neri Delgado MD [address] [place] [address] documented as of this encounter Visit Diagnoses Diagnosis Allergic rhinitis, unspecified seasonality, unspecified trigger- Primary documented in this encounter Care Teams Warp Dresser Relationship Specialty Start Date End Date Taniya Grimes MD [address] [place] [address] 2L DIV [place] [phone] PCP - General 07/01/20 05/10/22 Eliane Tillman MD [address] [place] [phone] PCP - General 05/11/22 06/09/22 Joseph Manzanares MD [address] [place] [phone] PCP - General Internal Medicine 06/10/22 07/14/22 Taniya Grimes MD [address] 2L DIV [place] [phone] PCP - General 07/15/22 10/06/22 Joseph Manzanares MD [address] [place] [phone] PCP - General Internal Medicine 10/07/22 04/20/23 Tiana Naylor DO [address] [facility] [place] [address] PCP - General Internal Medicine 04/21/23 05/03/23 Yaya Villatoro MD [address] [phone] PCP - General Internal Medicine 05/04/23 Marylu Marie DO [address] 2L DIV OF [facility] [place] [address] Resident - PCP Student Resident 06/26/20 01/11/22 Rocio Barcenas MD [address] [place] [phone] Resident - PCP Internal Medicine 01/12/22 04/05/22 Adriana Adams DO [address] [place] [address] Resident - PCP Internal Medicine 04/06/22 01/12/23 Tiana Naylor DO [address] [facility] [place] [address] Resident - PCP Internal Medicine 01/13/23 04/20/23 Joseph Manzanares MD [address] [place] [phone] Internal Medicine 04/21/23 documented as of this encounter
--- OUTSIDE RECORDS SUMMARY | 2024-07-23 07:31 | XMS_ITS | Encounter Summary ---
Author Organization [facility] Health Address [address] [facility] [place] [address] Care Team Providers Care Manager Knowledge Name Role Phone Unavailable Primary Care Provider Unavailabl e Reason for Visit * Reason Onset Date Comments MEDICATION REFILL 12/18/2019 Encounter Details Date Type Department Care Team (Late st Contact Info) Description 12/18/2019 Refill [facility] [address] [facility] 206 [place] [address] Marylu Marie DO [address] OF [facility] [place] [address] MEDICATION REFILL Social History Tobacco Use Types [...] encounter Miscellaneous Notes * Telephone Encounter - Roxie Frias RN - 12/18/2019 1:59 PM CDT Refill Request Brisa Hogan ELE: 09.06.2019May due: NOV scheduled: no schedule available LRF: Qty Disp: # of refills: Allergies: No Known Allergies Pended Medication Order: Requested Prescriptions Pending Prescriptions Disp Refills ??? clobetasol (TEMOVATE) 0.05 % ointment 60 g 2 Sig: Apply to affected area 2 times daily documented in this encounter Plan of Treatment Upcoming Encounters Date Type Department Care Team (Late st Contact Info) Description 07/25/2024 10:00 AM TIME CLERK Office Visit [facility] - Endocrinology [address] [place] [phone] Yosi Bustamante MD [address] [place] [address] 2L [place] [address] 07/26/2024 10:00 AM TIME CLERK Appointment [facility] [address] [place] [phone] Neri Delgado MD [address] [place] [address] 07/26/2024 10:00 AM TIME CLERK Office Visit [facility] - ENT [address] [place] [phone] Myra Farmer, PROPERTY UTILIZATION OFFICER [address] [place] [address] 2L [place] [phone] 07/26/2024 11:15 AM TIME CLERK Office Visit [facility] - ENT [address] [place] [phone] Neri Delgado MD [address] [place] [address] 08/02/2024 2:20 PM TIME CLERK Appointment [facility] [address] [place] [address] 08/02/2024 3:00 PM TIME CLERK Office Visit [facility] - Hematology/Oncology [address] [place] [phone] Remi Beckett MD [address] [place] [phone] 08/18/2024 1:45 PM TIME CLERK Office Visit [facility] [address] [place] [phone] Neri Delgado MD [address] [place] [address] documented as of this encounter Visit Diagnoses Not on filedocumented in this encounter
--- OUTSIDE RECORDS SUMMARY | 2024-07-23 07:31 | XMS_ITS | Encounter Summary ---
Author Organization [facility] Health Address [address] [facility] [place] [address] Care Team Providers Care Grants Director Name Role Phone Unavailable Primary Care Provider Unavailabl e Reason for Visit * Reason Onset Date Comments Referral 01/11/2020 Encounter Details Date Type Department Care Team (Late st Contact Info) Description 01/11/2020 Telephone [facility] [address] [facility] 206 [place] [address] Marylu Marie DO [address] OF [facility] [place] [address] Referral Social History Tobacco Use Types Packs/Day Years [...] Miscellaneous Notes * Telephone Encounter - Haleigh Delgadillo RN - 01/11/2020 12:38 PM CDT Pt calling stating that she has been sent a letter stating that it is time for her to have her Mammogram, and is asking for a Referral to: [facility] [address] [place], [place] [address] documented in this encounter Plan of Treatment Upcoming Encounters Date Type Department Care Team (Late st Contact Info) Description 07/25/2024 10:00 AM FARMWORKERS Office Visit [facility] - Endocrinology [address] [place] [phone] Yosi Bustamante MD [address] [place] [address] 2L [place] [address] 07/26/2024 10:00 AM FARMWORKERS Appointment [facility] [address] [place] [phone] Neri Delgado MD [address] [place] [address] 07/26/2024 10:00 AM FARMWORKERS Office Visit [facility] - ENT [address] [place] [phone] Myra Farmer, INFORMATICA MDM ARCHITECT [address] [place] [address] 2L [place] [address] 07/26/2024 11:15 AM FARMWORKERS Office Visit [facility] ENT [address] [place] [phone] Neri Delgado MD [address] [place] [address] 08/02/2024 2:20 PM FARMWORKERS Appointment [facility] [address] [place] [address] 08/02/2024 3:00 PM FARMWORKERS Office Visit [facility] - Hematology/Oncology [address] [place] [phone] Remi Beckett MD [address] [place] [phone] 08/18/2024 1:45 PM FARMWORKERS Office Visit [facility] ENT [address] [place] [phone] Neri Delgado MD [address] [place] [address] documented as of this encounter Visit Diagnoses Not on filedocumented in this encounter
--- OUTSIDE RECORDS SUMMARY | 2024-07-23 07:31 | XMS_ITS | Encounter Summary ---
Author Organization [facility] Health Address [address] [place] [address] Care Team Providers Care Mechanical Project Engineer Name Role Phone Unavailable Primary Care Provider Unavailabl e Reason for Visit * Reason Comments Well Women Exam Encounter Details Date Type Department Care Team (Latest Contact Info) Description 11/23/2019 10:00 AM CDT Office Visit [facility] Ob[facility] Gynecology and Women's Health [address] [place] [address] Tati pino, Lexii Ortiz MD [address] [place] [address] Well woman exam with routine gynecological exam (Primary Dx) Social History Tobacco Use Types [...] Sign Reading Time Taken Comments Blood Pressure 130/80 11/23/2019 10:13 AM CDT Pulse - - Temperature 36.3 ??C (97.3 ??F) 11/23/2019 10:13 AM C DT Respiratory Rate - - Oxygen Saturation - - Inhaled Oxygen Concentration - - Weight 68 kg (150 lb) 11/23/2019 10:13 AM CDT Height 152.4 cm (5') 11/23/2019 10:13 AM CDT Body Mass Index 29.29 11/23/2019 10:13 AM CDT documented in this encounter Progress Notes * Lexii Dillard MD - 11/23/2019 10:00 AM CDT General instrument technician apprentice Patient Progress Note: History of Present Illness: Ms. Hogan is a 59 year old female who presents with well woman. H/o DJD, anxiety and depression. New to me. H/o tubal ligation and c/s. Gynecologic history: Last mammogram: up to date Breast self exam:yes Menarche age:10 Menopausal no Pap smear history: wnl Sexually transmitted diseases:no Sexual concerns:no Obstetrical history: OB History No obstetric history on file. Medical history: Past Medical History: No date: Anxiety and depression No date: Degenerative disc disease, lumbar No date: HLD (hyperlipidemia) No date: Osteoarthritis of one hip, left No date: Psoriasis Surgical history: Past Surgical History: No date: Section No date: ENDOSCOPY, COLON, DIAGNOSTIC Comment: no polyp No date: HX STERILIZATION No date: Polypectomy Comment: cervical Social history: Social History Socioeconomic History Marital status: Spouse name: Not on file Number of children: Not on file Years of education: Not on file Highest education level: Not on file Occupational History Not on file Social Needs Financial resource strain: Not on file Food insecurity Worry: Not on file Inability: Not on file Transportation needs Medical: Not on file Non-medical: Not on file Tobacco Use Smoking status: Current Every Day Smoker Packs/day: 0.50 Start date: 07/22/1973 Smokeless tobacco: Never Used Substance and Sexual Activity Alcohol use: No Drug use: Not Currently Types: Cocaine, Marijuana Comment: Sexual activity: Not on file Lifestyle Physical activity Days per week: Not on file Minutes per session: Not on file Stress: Not on file Relationships Social connections Talks on phone: Not on file Gets together: Not on file Attends taoism service: Not on file Active member of club or organization: Not on file Attends meetings of clubs or organizations: Not on file Relationship status: Not on file Intimate partner violence Fear of current or ex partner: Not on file Emotionally abused: Not on file Physically abused: Not on file Forced sexual activity: Not on file Other Topics Concerns: Not on file Social History Narrative Not on file Medications: Current Outpatient Medications: atorvastatin (LIPITOR) 40 MG tablet, Take 1 tablet by mouth at bedtime, Disp: 30 tablet, Rfl: 11 B Complex Vitamins (VITAMIN B COMPLEX) tablet, Take by mouth DAILY., Disp: , Rfl: cetirizine (ZYRTEC) 10 MG tablet, Take 1 tablet by mouth once daily, Disp: 30 tablet, Rfl: 5 clobetasol (TEMOVATE) 0.05 % ointment, , Disp: , Rfl: 0 clonazePAM (KLONOPIN) 0.5 MG tablet, , Disp: , Rfl: Cyanocobalamin (B-12) 100 MCG, Take 6 mcg by mouth DAILY., Disp: , Rfl: fluticasone propionate (FLONASE) 50 MCG/ACT nasal spray, [place] 2 sprays into each nostril, Disp: 16g, Rfl: 0 folic acid 400 MCG tablet, Take 400 mcg by mouth DAILY., Disp: , Rfl: gabapentin (NEURONTIN) 300 MG capsule, Take 1 capsule by mouth 3 times daily, Disp: 90 capsule, Rfl: 5 ibuprofen (MOTRIN) 800 MG tablet, , Disp: , Rfl: 1 lidocaine (LMX 4) 4 % cream, , Disp: , Rfl: magnesium 500 MG tablet, Take 500 tablets by mouth DAILY., Disp: , Rfl: [place]-3 Fatty Acids (FISH OIL) 1000 MG capsule, Take 1,000 mg by mouth 3 times daily with meals., Disp: , Rfl: pantoprazole EC (PROTONIX) 40 MG tablet, TAKE 1 TABLET BY MOUTH EVERY DAY, Disp: 30 tablet, Rfl: 5 PARoxetine (PAXIL) 40 MG tablet, , Disp: , Rfl: 2 Riboflavin (B-2) 100 MG, Take 1.7 mg by mouth DAILY., Disp: , Rfl: traZODone (DESYREL) 100 MG tablet, , Disp: , Rfl: 1 venlafaxine XR 24hr (EFFEXOR XR) 37.5 MG capsule, Take 1 capsule by mouth DAILY., Disp: , Rfl: vitamin E (TOCOPHERYL) 400 UNIT capsule, Take 400 Units by mouth TID., Disp: , Rfl: Zinc 50 MG, Take 50 mg by mouth DAILY., Disp: , Rfl: No current facility-administered medications for this visit. Allergies: No Known Allergies Review of Systems: Pertinent items are noted in HPI. Physical examination: There were no vitals filed for this visit. General: within normal limits Skin: within normal limits Neck: within normal limits Nodes: Neck: within normal limits Axillary: within normal limits Groin: within normal limits Breasts: within normal limits Breast discharge no Lungs: within normal limits Cardiovascular system: Heart:within normal limits Peripheral vascular system:within normal limits Abdomen: Masses:no Hernia: no Hepatosplenomegaly: no Neurologic: alert, oriented x3, affect appropriate, no focal neurological deficits, moves all extremities well,no involuntary movements, reflexes at knee and ankle intact Psychiatric: Affect:within normal limits External Genitalia: within normal limits Urethral meatus: within normal limits Urethra: within normal limits Bladder: within normal limits Vagina: within normal limits Cervix: within normal limits Uterus: Position: mid Shape:wnl Size: wnl Mobility: yes, nt15 Adnexae: within normal limits Anus/Perineum: within normal limits Rectovaginal exam: within normal limits Assessment and Plan: Time spent counseling patient: 15 minutes Total face to face time: 15 minutes Patient counseled on: diet, exercise, mammograms No diagnosis found. 1. Annual 2. Felicia 3. Pap/hpv: 4. vulvar GL 5. Planning on quitting smoking - needs hip surgery. 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 . Mother with limited mobility. with COPD Next visit in 1 year documented in this encounter Plan of Treatment Upcoming Encounters Date Type Department Care Team (Late st Contact Info) Description 07/25/2024 10:00 AM ORAL AND MAXILLOFACIAL SURGERY RESIDENT Office Visit [facility] - Endocrinology [address] [place] [address], [place] [address] Yosi Bustamante MD [address] [place] [address] [place] [address] 07/26/2024 10:00 AM ORAL AND MAXILLOFACIAL SURGERY RESIDENT Appointment [facility] [address] [place] [address] Neri Delgado MD [address] [place] [address] 07/26/2024 10:00 AM ORAL AND MAXILLOFACIAL SURGERY RESIDENT Office Visit [facility] - ENT [address] [place] [phone] Myra Farmer, GARNETT MACHINE OPERATOR [address] [place] [address] [place] [phone] 07/26/2024 11:15 AM ORAL AND MAXILLOFACIAL SURGERY RESIDENT Office Visit [facility] - ENT [address] [place] [address] [phone] Neri Delgado MD [address] [place] [address] 08/02/2024 2:20 PM ORAL AND MAXILLOFACIAL SURGERY RESIDENT Appointment [facility] [address] [place] [address] 08/02/2024 3:00 PM ORAL AND MAXILLOFACIAL SURGERY RESIDENT Office Visit [facility] - Hematology/Oncology [address] [place] [phone] Remi Beckett MD [address] [place] [phone] 08/18/2024 1:45 PM ORAL AND MAXILLOFACIAL SURGERY RESIDENT Office Visit [facility] - ENT [address] [place] [address] [phone] Neri Delgado MD [address] [place] [address] documented as of this encounter Procedures Procedure Name Priority Date/Time Associated Diagnosis Comments HPV DETECTION HIGH RISK LEE Routine 11/23/2019 10:00 AM CDT Well woman exam with routine gynecological exam PAP IMAGE-GUIDED W HPV Routine 11/23/2019 10:00 AM CDT Well woman exam with routine gynecological exam documented in this encounter Results * HPV DETECTION HIGH RISK LEE (11/23/2019 10:00 AM CDT) High Risk Human Papilloma Result Not Detected Not Detected 11/28/2019 3:43 PM CDT [facility] High Risk Human Papilloma Interp 11/28/2019 3:43 PM CDT [facility] Comment:High Risk Human Taurus lloma Virus was Not Detected. Pathology/Cytolo gy MISCELLANEOUS SAMPLES / Unknown 11/23/2019 10:00 AM CDT 11/24/2019 11:39 AM CDT Narrative [facility] - 11/28/2019 3:43 PM CDT [...] clinical information). Lexii Dillard MD LAB - [facility] IOLOGY ORDERABLES Performing Organization Address City/State/[facility] Co de Phone Number [facility] [address] [place] [address], [facility] [phone] * PAP IMAGE-GUIDED W HPV (11/23/2019 10:00 AM CDT) Pathologist [facility] Case Report Gynecologic Cytology Report ? Case: [id number] ? Authorizing Provider: ??Tati pino, Lexii Ortiz, Collected: ? 11/23/2019 10:00 AM ? MD ? Ordering Location: ? [facility] ? Received: ?11/24/2019 11:39 AM ? Gynecology and Women's ? Health ? First Screen: ?Marcio Yanez ? Specimen: ?THINPREP - IMAGE GUIDED, Cervix/Endocervix [...] 10:17 AM CDT [facility] Interpretation BEAD INSPECTOR Negative for intraepithelial lesion or malignancy. 11/29/2019 10:17 AM CDT [facility] Other Atrophic changes. 020 10:17 AM CDT [facility] Pap Footnote This specimen was evaluated by the ThinPrep Imaging System along with the an additional manual rescreening by a supervisory civil engineer and/or pathologist. 11/29/2019 10:17 AM CDT [facility] Embedded Images 0 10:17 AM CDT [facility] Pathology/Cytolo gy MISCELLANEOUS SAMPLES / Unknown 11/23/2019 10:00 AM CDT 11/24/2019 11:39 AM CDT Lexii Dillard MD LAB - PATHOL OGY/CYTOLOGY ORDERABLES Performing Organization Address City/State/[facility] Phone Number [facility] [address] [phone] documented in this encounter Visit Diagnoses Diagnosis Well woman exam with routine gynecological exam- Primary Routine gynecological examination documented in this encounter
--- OUTSIDE RECORDS SUMMARY | 2024-07-23 07:31 | XMS_ITS | Encounter Summary ---
Author Organization [facility] Health Address [address] [facility] [place] [address] Care Team Providers Care Managing Partner Name Role Phone Unavailable Primary Care Provider Unavailabl e Reason for Visit * Reason Comments Establish Care Encounter Details Date Type Department Care Team (Late st Contact Info) Description 09/06/2019 3:00 PM SHEET METAL SMITH Office Visit [facility] General Internal Medicine [address] [facility] [address] [place] [address] Marylu Marie DO [address] DIV OF [facility] [address] Encounter to establish care (Primary Dx); Well adult exam; Hyperlipidemia, unspecified hyperlipidemia type; Primary osteoarthritis of left hip; Gastroesophageal reflux disease with esophagitis Social History Tobacco Use Types Packs/Day Years [...] Sign Reading Time Taken Comments Blood Pressure 122/64 09/06/2019 3:20 PM SHEET METAL SMITH Pulse 88 09/06/2019 3:20 PM SHEET METAL SMITH Temperature 36.2 ??C (97.1 ??F) 09/06/2019 3:20 PM CS T Respiratory Rate - - Oxygen Saturation - - Inhaled Oxygen Concentration - - Weight 65.8 kg (145 lb) 09/06/2019 3:20 PM SHEET METAL SMITH Height 152.4 cm (5') 09/06/2019 3:20 PM SHEET METAL SMITH Body Mass Index 28.32 09/06/2019 3:20 PM SHEET METAL SMITH documented in this encounter Patient Instructions * Patient Instructions* Charo German - 09/06/2019 3:22 PM SHEET METAL SMITH How to Contact Us Between Office Visits [...] to be seen. Please call us at [phone], option 1 thenoption 1 in the morning you would like to be seen. For scheduling routine appointments, requesting refills or leaving a message for your doctor, the office phone is [phone]. You will be given options to get to the assistance you need. Phone lines are open from 8:00 am to4:30 pm Wednesday through Wednesday. All prescription refills must be requested during regular office phone hours. Our fax number is [phone]. After hours urgent calls that cannot wait untill phone lines are open on the next business day are given to the General Internal Medicine physician hydro generation supervisor. Please call [phone]. Identify yourself as a patient in our practice and give the gravity prospecting operator helper your doctor's name. The gravity prospecting operator helper will contact the physician hydro generation supervisor. You can generally expect a return call within 30 minutes. On weekends, physicians are seeing hospitalized patients and there maybe a longer wait. Visit our website at [email or web address] for information about our practice and an interactive health encyclopedia. Our clinic's missed appointment policy is: - Patients with 3 consecutively missed appointments OR 3 missed appointments in a 12 month period will no longer be seen by General Internal Medicine. They will be asked to seek Primary Care outside of [facility]. - A missed appointment is defined as: * An appointment cancelled less than 24 hours in advance *Arriving to a scheduled appointment too late to be seen (Patients who arrive to clinic later than their scheduled appointment time may not be seen) * Not showing up for an appointment T METAL SMITH documented in this encounter Progress Notes * Marylu Marie, - 09/06/2019 3:00 PM CST [facility] General Internal Medicine New Patient Note CC: Chief Complaint Patient presents with ??? Establish Care History of Present Illness: Brisa Hogan is a 59 year old female presenting to [facility] clinic to establish care. Previously followed with Dr. Viridiana Hopper at [facility]. [facility] in early 2019. Has history of lumbar DDD associated with nerve pain which shoots down the L leg. Takes gabapentin for relief. Was taking 300mg BID, but recently increased to TID. Symptoms currently controlled; has good days and bad. Reports osteoarthritis in the L hip as well. Ambulates with cane as needed. Takes ibuprofen for pain. Recently completed course of PT which significantly helped. She is compliant with exercises at home twice daily. Previously saw surgeon to be evaluated for replacement, but was not deemed good candidate until she can complete smoking cessation. Smoking 7 cigarettes daily. Following with psychiatrist, Dr. Destiny Foster, regularly (every 3 months). Taking trazodone, paroxetine, clonazepam, and venlafaxine for insomnia, anxiety and depression. Participates in therapy aswell as. Reports good mood, and denies exacerbation of symptoms. Takes atorvastatin for HLD. Denies history of CO, CAD, or CVA. Has seasonal allergies for which sheuses fluticasone. Psoriatic symptoms controlled with clobetasol; aggravated by certain clothing. Past Medical History: Reviewed and updated in [...] negative Gen: fevers, chills, unintentional weight change 15-20 pounds in 6 months, appetite change Eyes: change in vision, blurry vision Ears: change in hearing, tinnitus, ear pain Throat: dysphagia, sore throat Nose: rhinorrhea, nasal pain, seasonal allergies Neck: neck masses/lumps CV: chest pain, palpitations, edema Pulm: SOB, CESPEDES, cough GI: abd pain, nausea, vomiting, diarrhea, constipation, melena, BRBPR : dysuria, hematuria, urinary frequency, urinary urgency, urinary incontinence MS: generalized arthralgias, generalized myalgias, back pain, left hip pain Neuro: focal weakness, numbness/tingling, lightheadedness Skin: rash Heme: easy bruising Physical Exam: BP 122/64 Pulse 88 Temp 97.1 ??F (36.2 ??C) (Oral) Ht 5' (1.524 m) Wt 145 lb (65.8 kg) BMI 28.32 kg/m2 Gen: NAD, conversational, pleasant, cooperative Eyes: EOMI; anicteric, non-injected sclerae Mouth: moist oral mucous membrane; no lesions or sores appreciated Ears: bilateral external auditory canals without erythema Nose: pink nasal mucosa without drainage Neck: supple with normal ROM; no LAD CV: normal S1, S2; RRR; no murmurs appreciated, no LE edema bilaterally Pulm: CTAB; no wheezes or crackles GI: abd soft, NT to palpation; +BS MS: no tenderness to palpation of joints, no reproducible pain to ROM testing in the LE Neuro: CN II-XII grossly intact; 5/5 strength in bilateral UE, LE; no focal neurologic deficits Psych: AOx3; calm, congruent affect Skin: erythematous plaques over the extensor surfaces of the LE Assessment & Plan: 1. Encounter to establish care Previous available records reviewed. PMH, PSH, medications and family history reviewed with patient. Patient to obtain records from recent low dose CT imaging, colonoscopy and bring to next appointment. These tests were performed at [facility]. 2. Well adult exam - CBC W/O DIFFERENTIAL; Future - COMPREHENSIVE METABOLIC PANEL; Future - HEMOGLOBIN A1C; Future - AMB Ref OBGYN - BEL 400; Future 3. Hyperlipidemia, unspecified hyperlipidemia type - LIPID PROFILE; Future - atorvastatin (LIPITOR) 40 MG tablet; Take 1 tablet by mouth at bedtime Dispense: 30 tablet; Refill: 11 4. Primary osteoarthritis of left hip Symptoms controlled. Ambulating with cane PRN. Will need to establish care with orthopedics. Working on smoking cessation. - gabapentin (NEURONTIN) 300 MG capsule; Take 1 capsule by mouth 3 times daily Dispense: 90 capsule; Refill: 5 5. Gastroesophageal reflux disease with esophagitis Previously controlled with ranitidine, currently taking Prilosec. Will trial famotidine and continue to monitor symptoms. - famotidine (PEPCID) 20 MG tablet; Take 1 tablet by mouth 2 times daily Dispense: 60 tablet; Refill: 5 Preventative Care/Health Maintenance: Immunizations - Tdap: 02/2016 - Influenza: 03/2019 - PCV13: 06/2018 Colorectal cancer screenin Lung cancer screening: recent low dose CT at [facility], patient will try to obtain records Lipid screening: ordered; on statin DM screening: ordered Depression screening: PHQ-9 score of 4 Female specific HCM Cervical cancer screenin, referral to gas operation manager Preconception counseling: Menopause at age 57 Breast ca screenin Patient discussed with attending physician, Dr. Tillman, who agrees with my assessment and plan. Return to clinic in 3 months. Marylu Marie DO 09/06/2019 3:48 PM T METAL SMITH Associated attestation - Eliane Tillman MD - 09/08/2019 10:38 AM SHEET METAL SMITH IM Attending-Outpatient Clinic note New visit Patient was seen and examined during IM clinic encounter. Prior notes and problems reviewed. The assessment and plan were elaborated under my supervision and are as detailed in 's note This patient was seen, evaluated and I have reviewed and discussed the pertinent data/physical findings/assessment/plan as outlined in note. Summary has been added below. Assessment and Plan: - Psoriasis: stable, on topical colbestasol - OA with Lt hip pain, chronic lower back pain: on gabapentin, may have surgery however she was asked to stop smoking first - Hypercholestrolemia: on statin - Anxiety and depression: trazodone, venlafaxine and paroxetine 40, already following with psychiatrist and psychotherapist - Tobacco use: counseled - Preventive care: Mammo: due, will order Other preventive care measures are with the previous provider at OR, patient already has records, she will bring records next time. A/P, Medications, follow up and plan of care as detailed in Dr. Marie's note and discussed with patient and with resident. Eliane Tillman MD, FACP documented in this encounter Plan of Treatment Upcoming Encounters Date Type Department Care Team (Late st Contact Info) Description 07/25/2024 10:00 AM SHEET METAL SMITH Office Visit [facility] - Endocrinology [address] [place] [phone] Yosi Bustamante MD [address] [place] [address] [address]L Div [place] [address] 07/26/2024 10:00 AM SHEET METAL SMITH Appointment [facility] [address] [place] [address] Neri Delgado MD [address] [place] [address] 07/26/2024 10:00 AM SHEET METAL SMITH Office Visit [facility] - ENT [address] [place] [phone] Myra Farmer, PROOF LOAD MECHANIC [address] [place] [address] [address] [place] [address] 07/26/2024 11:15 AM SHEET METAL SMITH Office Visit [facility] - ENT [address] [place] [phone] Neri Delgado MD [address] [place] [address] 08/02/2024 2:20 PM SHEET METAL SMITH Appointment [facility] [address] [place] [address] 08/02/2024 3:00 PM SHEET METAL SMITH Office Visit [facility] - Hematology/Oncology [address] [place] [phone] Remi Beckett MD [address] [place] [phone] 08/18/2024 1:45 PM SHEET METAL SMITH Office Visit [facility] - ENT [address] [place] [address] Neri Delgado MD [address] [place] [address] documented as of this encounter Results * CBC W/O DIFFERENTIAL (03/07/2020 3:19 PM CDT) WBC 7.9 3.5 - 10.5 10? 3 /uL 03/07/2020 4:02 PM [facility] RBC 4.54 3.90 - 5.00 10? 6 /uL 03/07/2020 4:02 PM [facility] Hemoglobin 13.3 12.0 - 15.5 g/dL 03/07/2020 4:02 PM [facility] Hematocrit 40.5 35.0 - 45.0 % 03/07/2020 4:02 PM [facility] MCV 89.2 81.0 - 97.0 fL 03/07/2020 4:02 PM [facility] MCH 29.3 28.0 - 34.0 pg 03/07/2020 4:02 PM [facility] MCHC 32.8 32.0 - 36.0 g/dL 03/07/2020 4:02 PM [facility] Platelet Count 266 150 - 400 10? 3 /uL 03/07/2020 4:02 PM [facility] RDW-SD 41.3 36.0 - 50.0 fL 03/07/2020 4:02 PM [facility] RDW-CV 12.5 11.2 - 14.8 % 03/07/2020 4:02 PM [facility] MPV 9.8 9.3 - 12.8 fL 03/07/2020 4:02 PM [facility] nRBC Absolute 0.00 0 10? 3 /uL 03/07/2020 4:02 PM [facility] nRBC Auto 0.0 0 /100 WBC 03/07/2020 4:02 PM [facility] Blood BLOOD SPECIMEN / Unknown Lab Venipuncture / Unknown 03/07/2020 3:19 PM CDT 03/07/2020 3:43 PM CDT Marylu Marie DO LAB - HEMATOLOGY ORD ERABLES Performing Organization Address City/State/[facility] Co de Phone Number [facility] [address] [phone], [facility] [phone] documented in this encounter Visit Diagnoses Diagnosis Encounter to establish care- Primary Reserved for inherently not codable concepts WITHOUT codable children Well adult exam Routine general medical examination at a health care facility Hyperlipidemia, unspecified hyperlipidemia type Primary osteoarthritis of left hip Primary localized osteoarthrosis, pelvic region and thigh Gastroesophageal reflux disease with esophagitis documented in this encounter
--- OUTSIDE RECORDS SUMMARY | 2024-07-23 07:31 | XMS_ITS | Encounter Summary ---
Author Organization [facility] Address [address] [place] [address] Care Team Providers Care Top Dyeing Machine Loader Name Role Phone Unavailable Primary Care Provider Unavailabl e Reason for Visit * Reason Onset Date Comments General 09/22/2019 Encounter Details Date Type Department Care Team (Late st Contact Info) Description 09/22/2019 Telephone [facility] General Internal Medicine [address] [facility] [address] [place] [address] Marylu Marie DO [address] OF [facility] [place] [address] General Social History Tobacco Use Types Packs/Day [...] Telephone Encounter - Haleigh Delgadillo RN - 09/22/2019 9:34 AM CDT Patient calling in asking about symptoms for Calderon Virus, c/o a h/a on top of her head, a little cough with white to yellow secretions, is chronic COPD patient and so she is worried about getting the virus. Also she heard that two basket ball players tested positive which increased her fears. Pt did not have a fever, had not been out of the country, did not have lower respiratory symptoms, was just stressing about the virus. Fears allayed, she voiced understanding to self quarantine, drink lots of fluids, could take Delsym for her cough. documented in this encounter Plan of Treatment Upcoming Encounters Date Type Department Care Team (Late st Contact Info) Description 07/25/2024 10:00 AM FASHION MARKETER Office Visit [facility] - Endocrinology [address] [place] [phone] Yosi Bustamante MD [address] [place] [address] 2L [place] [address] 07/26/2024 10:00 AM FASHION MARKETER Appointment [facility] [address] [place] [phone] Neri Delgado MD [address] [place] [address] 07/26/2024 10:00 AM FASHION MARKETER Office Visit [facility] - ENT [address] [place] [phone] Myra Farmer, FREIGHT RATE ANALYST [address] [place] [address] 2L [place] [phone] 07/26/2024 11:15 AM FASHION MARKETER Office Visit [facility] - ENT [address] [place] [phone] Neri Delgado MD [address] [place] [address] 08/02/2024 2:20 PM FASHION MARKETER Appointment [facility] [address] [place] [address] 08/02/2024 3:00 PM FASHION MARKETER Office Visit [facility] - Hematology/Oncology [address] [place] [phone] Remi Beckett MD [address] [place] [address] 08/18/2024 1:45 PM FASHION MARKETER Office Visit [facility] - ENT [address] [place] [phone] Neri Delgado MD [address] [place] [phone] documented as of this encounter Visit Diagnoses Not on filedocumented in this encounter
--- OUTSIDE RECORDS SUMMARY | 2024-07-23 07:36 | XMS_ITS | Encounter Summary ---
Author Organization [facility] Address [address] [place] [address]. [place] [address] [place] [address] Care Team Providers Care Instructor Of Nursing Name Role Phone Brenda Hopper MD Primary Care Provider [phone] Reason for Visit * Reason Onset Date Comments Surgery Questions 05/23/2019 Encounter Details Date Type Department Care Team (Late st Contact Info) Description 05/23/2019 Telephone [facility] Multispecialty Care - [facility] [address] [facility], [address] [place] [phone] Kemar Mckenna MD [address] [place] [address] Surgery Questions Social History Tobacco Use Types Packs/Day Years Used Date Smoking Tobacco: Every Day Cigarettes Smokeless Tobacco: Never Alcohol Use Standard Drinks/Week Comments No 0 (1 standard drink = 0.6 oz pur e alcohol) Comments No Sex and Gender Information Value Date Recorded Sex Assigned at Not on file Legal Sex Female 1:20 PM CDT Gender Identity Not on file Sexual Orientation Not on file documented as of this encounter Progress Notes * Samanta Cr MA - 05/23/2019 2:04 PM CST I asked Delisa if she needs to be off the nicotine patches before she can schedule her surgery. I toldthe patient she does need to be off the patches. PAGNE MAKER * Lexii Combs - 05/23/2019 1:05 PM CST Patient calling with some surgery questions ( Hip Surgery). She has a question about the patch. Patient call back number [phone]. PAGNE MAKER documented in this encounter Plan of Treatment Not on file documented as of this encounter Visit Diagnoses Not on filedocumented in this encounter Care Teams Instructor Of Nursing Relationship Specialty Start Date End Date Brenda Hopper MD [address] [address] PCP - General FAMILY PRACTICE 10/07/18 documented as of this encounter
--- OUTSIDE RECORDS SUMMARY | 2024-07-23 07:36 | XMS_ITS | Encounter Summary ---
Author Organization [facility] Address [address] [place] [address]. [place], [place] [address] [place] [address] Care Team Providers Care Manufacturer'S Representative Name Role Phone Brenda Hopper MD Primary Care Provider [phone] Encounter Details Date Type Department Care Team (Latest Contact Info) Description 10/07/2018 2:25 PM CDT - 10/07/2018 11:59 PM CDT Hospital Encounter [facility] Diagnostic Imaging [address] [place] [address] Wolf Flores MD [address] [facility] [place] [phone] (Work) Discharge Disposition: Home or Self Care (Routine Discharge) Social History Tobacco Use Types Packs/Day Years [...] this encounter Medications at Time of Discharge atorvastatin 40 MG tablet Take 40 mg by mouth. 11/09/2016 B Complex Vitamins (VITAMIN B COMPLEX OR) 11/19/2016 cetirizine 10 MG tablet Take 10 mg by mouth. 11/09/2016 clobetasol 0.05 % ointment 11/09/2016 clonazePAM 0.5 MG tablet Take 0.5 mg by mouth daily as needed. 2 07/05/2018 Cyanocobalamin (B-12) 100 MCG Tab Take 6 mcg by mouth. 11/19/2016 famotidine 20 MG tablet 11/09/2016 fish oil 1000 MG Cap capsule Take 1,000 mg by mouth. 11/19/2016 fluticasone propionate 50 MCG/ACT nasal spray 1 spray by Each Nostril route daily. 0 07/22/2018 folic acid 400 MCG tablet Take 400 mcg by mouth. 11/19/2016 gabapentin 300 MG capsule Take 300 mg by mouth 2 (two) times daily. 1 07/18/2018 ibuprofen 800 MG tablet 10/14/2016 MAGNESIUM OR Take 500 tablets by mouth. 11/19/2016 niacin 50 MG tablet Take 20 mg by mouth. 11/19/2016 omeprazole 20 MG capsule Take 20 mg by mouth. 11/19/2016 ondansetron 4 MG disintegrating tablet Take 1 tablet (4 mg total) by mouth every 8 (eight) hours as needed. 12 tablet 08/31/2017 paroxetine 40 MG tablet 11/14/2016 Pyridoxine HCl (B-6) 100 MG Tab Take 2 mg by mouth. 11/19/2016 Riboflavin (B-2) 100 MG Tab Take 1.7 mg by mouth. 11/19/2016 trazodone 100 MG tablet 11/09/2016 triamcinolone 0.5 % cream 0 04/20/2018 venlafaxine XR 37.5 MG 24 hr capsule Take 1 capsule by mouth. 11/05/2016 VENTOLIN HFA 108 (90 Base) MCG/ACT inhaler 2 12/09/2017 vitamin B-1 (B-1) 100 MG tablet Take 1.5 mg by mouth. 11/19/2016 vitamin D3, cholecalciferol, 1000 UNIT Tab tablet Take 1,000 Units by mouth. 11/19/2016 vitamin E 400 UNIT capsule Take 400 Units by mouth. 11/19/2016 Zinc 50 MG Tab Take 50 mg by mouth. 11/19/2016 documented as of this encounter Plan of Treatment Not on file documented as of this encounter Procedures Procedure Name Priority Date/Time Associated Diagnosis Comments XR FOOT RT 3V Routine 10/07/2018 2:43 PM CDT Pain in right foot documented in this encounter Results * XR FOOT RT 3V (10/07/2018 2:43 PM CDT) Anatomical Region Laterality Modality Foot Radiographic Ewa ging 10/07/2018 2:58 PM CDT Impressions 10/07/2018 3:02 PM CDT =====IMPRESSION:===== 1. No acute fracture or dislocation. 2. Mild degenerative changes and slight hallux valgus. 3. Soft tissue swelling of the forefoot greatest laterally. 4. Plantar calcaneal spur. Narrative 10/07/2018 3:02 PM CDT Examination: Right foot 3 views Exam date/time: 10/07/2018 2:35 PM Reason For Exam: ??Right foot pain. Recent injury. ?? Comparison: None. Findings: ?No acute fracture or dislocation. Slight hallux valgus and mild degenerative changes the first metatarsophalangeal joint. There may be a small erosion of the dorsal aspect of the first metatarsal head. Moderate plantar calcaneal spur. Small enthesophytes and partial tendon ossification of the Achilles insertion. No radiopaque foreign body. Mild to moderate soft tissue swelling of the forefoot greater laterally. Milder soft tissue swelling of the medial forefoot overlying the first metatarsal head. Procedure Note Jhonny Vazquez MD - 10/07/2018 Examination: Right foot 3 views Exam date/time: 10/07/2018 2:35 PM Reason For Exam: Right foot pain. Recent injury. Comparison: None. Findings: No acute fracture or dislocation. Slight hallux valgus and mild degenerative changes the first metatarsophalangeal joint. There maybe a small erosion of the dorsal aspect of the first metatarsal head.Moderate plantar calcaneal spur. Small enthesophytes and partial tendonossification of the Achilles insertion. No radiopaque foreign body. Mild to moderate soft tissue swelling of the forefoot greater laterally. Milder softtissue swelling of the medial forefoot overlying the first metatarsal head. =====IMPRESSION:===== 1. No acute fracture or dislocation. 2. Mild degenerative changes and slight hallux valgus. 3. Soft tissue swelling of the forefoot greatest laterally. 4. Plantar calcaneal spur. Wolf Flores MD GENERAL IMAGING Final Result documented in this encounter Visit Diagnoses Diagnosis Pain in right foot Pain in limb documented in this encounter Care Teams Manufacturer'S Representative Relationship Specialty Start Date End Date Brenda Hopper MD [address] [address] PCP - General FAMILY PRACTICE 10/07/18 documented as of this encounter
--- OUTSIDE RECORDS SUMMARY | 2024-07-23 07:36 | XMS_ITS | Encounter Summary ---
Author Organization [facility] Address [address] [place] [address]. [place] [address] [place] [address] Care Team Providers Care Card Table Attendant Name Role Phone Brenda Hopper MD Primary Care Provider [phone] Encounter Details Date Type Department Care Team (Latest Contact Info) Description 12/09/2018 Scan HEALTH INFO [facility] Scanned, Documents Social History Tobacco Use Types Packs/Day Years [...] on filedocumented in this encounter Care Teams Card Table Attendant Relationship Specialty Start Date End Date Brenda Hopper MD [address] [phone] PCP - General FAMILY PRACTICE 10/07/18 documented as of this encounter
--- OUTSIDE RECORDS SUMMARY | 2024-07-23 07:36 | XMS_ITS | Encounter Summary ---
Author Organization [facility] Address [address] [place] [address]. [place] [address] [place] [address] Care Team Providers Care Neck Band Maker Name Role Phone Brenda Hopper MD Primary Care Provider [phone] Encounter Details Date Type Department Care Team (Late st Contact Info) Description 12/02/2018 Orders Only [facility] Medical Group Multispecialty Care - [address] [place] [phone] Angeline Graves MA Social History Tobacco Use Types Packs/Day Years [...] on filedocumented in this encounter Care Teams Neck Band Maker Relationship Specialty Start Date End Date Brenda Hopper MD 3 [facility] [address] [place], [place] [phone] PCP - General FAMILY PRACTICE 10/07/18 documented as of this encounter
--- OUTSIDE RECORDS SUMMARY | 2024-07-23 07:36 | XMS_ITS | Encounter Summary ---
Author Organization [facility] Address [address] [place] [address]. [place], [place] [address] [place] [address] Care Team Providers Care Sliver Lapper Name Role Phone None, Provider Primary Care Provider Unavaila ble Reason for Visit * Reason Comments Leg Pain Encounter Details Date Type Department Care Team (Late st Contact Info) Description 08/10/2018 5:20 PM TELEGRAPH INSPECTOR - 08/10/2018 6:18 PM TELEGRAPH INSPECTOR Emergency [facility] [place] [address] Gustavo Goodman PA [address] [place] [address] Leg Pain Discharge Disposition: Home or Self Care (Routine [...] Sign Reading Time Taken Comments Blood Pressure 107/83 08/10/2018 3:22 PM TELEGRAPH INSPECTOR Pulse 77 08/10/2018 3:22 PM TELEGRAPH INSPECTOR Temperature 36.7 ??C (98.1 ??F) 08/10/2018 3:22 PM CS T Respiratory Rate 18 08/10/2018 3:22 PM TELEGRAPH INSPECTOR Oxygen Saturation 95% 08/10/2018 3:22 PM TELEGRAPH INSPECTOR Inhaled Oxygen Concentration - - Weight 72.5 kg (159 lb 12.8 oz) 08/10/2018 3:21 PM TELEGRAPH INSPECTOR Height 157.5 cm (5' 2) 08/10/2018 3:21 PM TELEGRAPH INSPECTOR Body Mass Index 29.23 08/10/2018 3:21 PM TELEGRAPH INSPECTOR documented in this encounter Discharge Instructions * Attachments The following attachments cannot be sent through Care Everywhere. * Degenerative Disc Disease Discharge Instructions (Croatian) documented in this encounter Medications at Time [...] Tab Take 50 mg by mouth. 11/19/2016 baclofen 10 MG tablet Take 1 tablet (10 mg total) by mouth 3 (three) times daily for 10 days. 30 tablet 08/10/2018 9 documented as of this encounter ED Notes * TINY Gr - 08/10/2018 5:58 PM CST ED NOTE Chief Complaint Chief Complaint Patient presents with ??? Leg Pain History of Present Illness 58-year-old female presenting to emergency department complaint of pain that radiates to left leg the past several months. Recently had outpatient MRI however not able to follow-up to go over resultswith her doctor. Patient states there is no acute change in pain however just wants to know what isgoing on. Request that I review MRI results with her. Patient denies numbness, weakness or paresthesias distally. No other complaints at this time. Medical History ALLERGIES: No Known Allergies MEDICATIONS: Prior to Admission medications Medication Sig Start Date End Date Taking? Authorizing Provider baclofen 10 MG tablet Take 1 tablet (10 mg total) by mouth 3 (three) times daily for 10 days. 08/10/18 08/20/18 Yes TINY Gr ondansetron 4 MG disintegrating tablet Take 1 tablet (4 mg total) by mouth every 8 (eight) hours asneeded. 08/31/17 Chandu Varela MD PAST MEDICAL HISTORY: Past Medical History: Diagnosis Date ??? Acid reflux ??? High cholesterol PAST SURGICAL HISTORY: Past Surgical History: Procedure Laterality Date ??? SECTION FAMILY HISTORY: No family history on file. SOCIAL HISTORY: Social History Tobacco Use ??? Smoking status: Current Every Day Smoker Packs/day: 0.50 ??? Smokeless tobacco: Never Used Substance Use Topics ??? Alcohol use: No ??? Drug use: No Review of Systems Review of Systems Constitutional: Negative for activity change and appetite change. HENT: Negative for congestion, ear discharge, ear pain and sore throat. Respiratory: Negative for cough and shortness of breath. Cardiovascular: Negative for chest pain. Gastrointestinal: Negative for abdominal pain, nausea and vomiting. Musculoskeletal: Negative for back pain and neck pain. Neurological: Negative for dizziness, syncope and light-headedness. Physical Exam Filed Vitals: 08/10/18 1521 08/10/18 1522 BP: 107/83 107/83 Pulse: 77 77 Resp: 18 18 Temp: 98.1 ??F (36.7 ??C) 98.1 ??F (36.7 ??C) TempSrc: Tympanic SpO2: 95% 95% Weight: 72.5 kg (159 lb 12.8 oz) Height: 5' 2 (1.575 m) Physical Exam Constitutional: She is oriented to person, place, and time. She appears well- developed and well-nourished. No distress. HENT: Head: Normocephalic. Nose: Nose normal. Mouth/Throat: Oropharynx is clear and moist. Neck: Normal range of motion. Neck supple. Cardiovascular: Normal rate, regular rhythm and normal heart sounds. Pulmonary/Chest: Effort normal and breath sounds normal. Musculoskeletal: Normal range of motion. She exhibits no tenderness. Patient ambulates with a cane. No neurovascular deficits. Normal strength. Pain increased with external range of motion of left hip Neurological: She is alert and oriented to person, place, and time. Skin: Skin is warm and dry. Psychiatric: She has a normal mood and affect. Her behavior is normal. Judgment and thought contentnormal. Nursing note and vitals reviewed. Diagnostic Studies / Procedures ELECTROCARDIOGRAMS: No results found for this visit on 08/10/18. LABORATORY STUDIES: No results found for this visit on 08/10/18. IMAGING STUDIES XR HIP LT 2V Final Result by User, [id number] (08/10 161) Examination: Left hip. Exam time: 1605 hours. Clinical history: Chronic pain. No recent injury. Comparison: None. Technique: Two views. Findings: No fracture, dislocation or other acute bony abnormality is identified. There are marked degenerative changes manifested by joint space narrowing, subchondral sclerosis and acetabular osteophyte formation. No other significant bone or joint abnormality is noted. The soft tissues are unremarkable. IMPRESSION: No acute findings. Degenerative changes as described. Course / Medical Decision Making X-ray with no acute abnormalities. There is arthritis of the hip. Reviewed MRI results that patientbrought with her. Significant for multiple lumbar disc bulges. Patient is ambulating without difficulty. No neurological deficits. Will refer for pain management follow-up Medications - No data to display Clinical Impression Degenerative disc disease, lumbar (Primary) Hip arthritis Current Discharge Medication List START taking these medications Details baclofen 10 MG tablet Take 1 tablet (10 mg total) by mouth 3 (three) times daily for 10 days. Qty: 30 tablet, Refills: 0 Class: Print Disposition: Discharge Follow-Up: Lizy Llanes MD [facility] [address] [place] [address] Schedule an appointment as soon as possible for a visit in 1 week As needed TINY Gr 08/10/2018 TINY Gr 08/10/18 1803 Cosigned by Severiano Goldstein MD at 08/10/2018 10:25 PM TELEGRAPH INSPECTOR GRAPH INSPECTOR GRAPH INSPECTOR * TINY Le-C - 08/10/2018 3:33 PM CST [facility] [place] [place] EMERGENCY DEPARTMENT ENCOUNTER Medical Screening Examination 08/10/18 3:34 PM Chief Complaint : Leg Pain HPI : Brisa Hogan is a 58-year-old female who presents to the ED with complaints of left leg and hip pain for the past 6 months. She recently had an MRI and wants to switch providers. She deniesany new falls, injury or trauma. She denies leg swelling or skin changes. Vital Signs: Filed Vitals: 08/10/18 1521 08/10/18 1522 BP: 107/83 107/83 Pulse: 77 77 Resp: 18 18 Temp: 98.1 ??F (36.7 ??C) 98.1 ??F (36.7 ??C) TempSrc: Tympanic SpO2: 95% 95% Weight: 72.5 kg (159 lb 12.8 oz) Height: 5' 2 (1.575 m) Physical exam: A brief physical exam was completed to facilitate/expedite patient care. Plan: Necessary labs/imaging/medications ordered to initiate pt care. Norberto Sanchez PA-C 08/10/18 1534 Cosigned by Alli Guajardo DO at 08/11/2018 3:16 PM TELEGRAPH INSPECTOR GRAPH INSPECTOR GRAPH INSPECTOR * Nader Gaming RN - 08/10/2018 3:24 PM CST PT came into ED with c/o left leg pain. PT has a history of pain, and recently had an MRI. PT reports pain is worsening. PT vitals stable. NADER GAMING RN GRAPH INSPECTOR documented in this encounter Plan of Treatment Not on file documented as of this encounter Procedures Procedure Name Priority Date/Time Associated Diagnosis Comments XR HIP LT 2V STAT 08/10/2018 4:12 PM TELEGRAPH INSPECTOR documented in this encounter Results * XR HIP LT 2V (08/10/2018 4:12 PM TELEGRAPH INSPECTOR) Anatomical Region Laterality Modality Hip Radiographic Ewa ging 08/10/2018 4:16 PM TELEGRAPH INSPECTOR Impressions 08/10/2018 4:18 PM TELEGRAPH INSPECTOR IMPRESSION: No acute findings. Degenerative changes as described. Narrative 08/10/2018 4:18 PM TELEGRAPH INSPECTOR Examination: Left hip. Exam time: 1605 hours. Clinical history: Chronic pain. No recent injury. Comparison: None. Technique: Two views. Findings: No fracture, dislocation or other acute bony abnormality is identified. ??There are marked degenerative changes manifested by joint space narrowing, subchondral sclerosis and acetabular osteophyte formation. No other significant bone or joint abnormality is noted. ?The soft tissues are ? unremarkable. Procedure Note Daniele Mendenhall MD - 08/10/2018 Examination: Left hip. Exam time: 1605 hours. Clinical history: Chronic pain. No recent injury. Comparison: None. Technique: Two views. Findings: No fracture, dislocation or other acute bony abnormality is identified. There are marked degenerative changes manifested by joint space narrowing, subchondral sclerosis and acetabular osteophyteformation. No other significant bone or joint abnormality is noted. The soft tissues are unremarkable. IMPRESSION: No acute findings. Degenerative changes as described. Norberto Sanchez PA-C GENERAL IMAGING Final R esult documented in this encounter Visit Diagnoses Diagnosis Degenerative disc disease, lumbar- Primary Degeneration of lumbar or lumbosacral intervertebral disc Hip arthritis Unspecified arthropathy, pelvic region and thigh documented in this encounter Care Teams Sliver Lapper Relationship Specialty Start Date End Date None, ProviderMD PCP - General 08/10/18 10/06/18 documented as of this encounter
--- OUTSIDE RECORDS SUMMARY | 2024-07-23 07:36 | XMS_ITS | Encounter Summary ---
Author Organization [facility] Address [address] [place] [address]. [place], [place] [address] [place] [address] Care Team Providers Care Senior Counsel Commercial Name Role Phone Brenda Hopper MD Primary Care Provider [phone] Reason for Visit * Reason Comments New Patient Left hip pain * Consultation/Treatment (Routine) - Closed Specialty Diagnoses / Procedures Referred By Contac t Referred To Contact ORTHOPAEDIC SURGERY / ORTHOPAEDICS Diagnoses Left hip pain Brenda Hopper MD [address] [facility] [address] [place] [address] Phone: tel: fax: Madeline Bucio MD Phone: tel: fax: Referral ID Status Reason Start Date Expiration Date Visits Re quested Visits Authorized [id number] Closed 11/22/2018 11/23/2019 100 100 Encounter Details Date Type Department Care Team (Latest Contact Info) Description 12/07/2018 2:00 PM CDT Office Visit [facility] - [address] [place] [id number] Madeline Bucio MD [address] [place] [address] [phone] New Patient (Left hip pain) Social History Tobacco Use Types Packs/Day Years [...] Reading Time Taken Comments Blood Pressure 138/87 12/07/2018 2:08 PM CDT Pulse 76 12/07/2018 2:08 PM CDT Temperature 36.5 ??C (97.7 ??F) 12/07/2018 2:08 PM CD T Respiratory Rate - - Oxygen Saturation - - Inhaled Oxygen Concentration - - Weight 69 kg (152 lb 1.6 oz) 12/07/2018 2:08 PM CDT Height 157.5 cm (5' 2) 12/07/2018 2:08 PM CDT Body Mass Index 27.82 12/07/2018 2:08 PM CDT documented in this encounter Progress Notes * Madeline Bucio MD - 12/07/2018 2:00 PM CDT Images from the original note were not included. Office Visit Reason for Visit: New Patient (Left hip pain) History of Present Illness: She is here for evaluation of her left hip. She had groin pain and deep hip pain for the past year or more. Is gotten progressively worse. It interferes with her activities of daily living. She works[employer]. 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 Therefore she is able to take some breaks. She thought this is her back initially and now she is been told it is her hip. Smokes half pack cigarettes per day. She is been trying to quit. Vitals: Filed Vitals: 12/07/18 1408 BP: 138/87 Pulse: 76 Temp: 97.7 ??F (36.5 ??C) Weight: 69 kg (152 lb 1.6 oz) Height: 5' 2 (1.575 m) Physical Exam: Physical Exam Constitutional: She is oriented to person, place, and time. She appears well- developed and well-nourished. HENT: Head: Normocephalic. Eyes: EOM are normal. Cardiovascular: Intact distal pulses. Pulmonary/Chest: Effort normal. No respiratory distress. Neurological: She is alert and oriented to person, place, and time. Psychiatric: She has a normal mood and affect. Ortho: She is able walk with limp favoring the left hip. She has pain with any hip flexion. She is able toget to full extension of the hip when she lays supine. At 90 degrees hip flexion on the left side she has 50 degrees external rotation 10 degrees internal rotation. On the right side at 70 and 20. With the end range of motion both external and internal rotation on the left side. Dorsalis pedis pulse palpable bilaterally. No swelling or open areas to the legs bilaterally. No motor deficits throughthe bilateral lower extremities. Prior x-rays reviewed which show severe left hip osteoarthritis. Assessment: Severe left hip osteoarthritis. Plan: Left total hip arthroplasty. She needs to quit smoking. She will call us when she has quit smoking and we will order a nicotine test. Once she has a negative nicotine test we will put her on the schedule for a left total hip arthroplasty. Procedures Summary: Brisa was seen today for new patient. Diagnoses and all orders for this visit: Primary osteoarthritis of left hip ROS: Review of Systems Constitutional: Negative for chills, fever and malaise/fatigue. Cardiovascular: Negative for chest pain and palpitations. Gastrointestinal: Negative for constipation, diarrhea, nausea and vomiting. Genitourinary: Negative for frequency and urgency. Neurological: Negative for dizziness and headaches. Psychiatric/Behavioral: Negative for depression. The patient is not nervous/anxious. Medications: Current Outpatient Medications: ??? atorvastatin 40 MG tablet, Take 40 mg by mouth., Disp: , Rfl: ??? B Complex Vitamins (VITAMIN B COMPLEX OR), , Disp: , Rfl: ??? cetirizine 10 MG tablet, Take 10 mg by mouth., Disp: , Rfl: ??? clobetasol 0.05 % ointment, , Disp: , Rfl: ??? clonazePAM 0.5 MG tablet, Take 0.5 mg by mouth daily as needed., Disp: , Rfl: 2 ??? Cyanocobalamin (B-12) 100 MCG Tab, Take 6 mcg by mouth., Disp: , Rfl: ??? famotidine 20 MG tablet, , Disp: , Rfl: ??? fish oil 1000 MG Cap capsule, Take 1,000 mg by mouth., Disp: , Rfl: ??? fluticasone propionate 50 MCG/ACT nasal spray, 1 spray by Each Nostril route daily., Disp: , Rfl: 0 ??? folic acid 400 MCG tablet, Take 400 mcg by mouth., Disp: , Rfl: ??? gabapentin 300 MG capsule, Take 300 mg by mouth 2 (two) times daily., Disp: , Rfl: 1 ??? ibuprofen 800 MG tablet, , Disp: , Rfl: ??? MAGNESIUM OR, Take 500 tablets by mouth., Disp: , Rfl: ??? niacin 50 MG tablet, Take 20 mg by mouth., Disp: , Rfl: ??? omeprazole 20 MG capsule, Take 20 mg by mouth., Disp: , Rfl: ??? ondansetron 4 MG disintegrating tablet, Take 1 tablet (4 mg total) by mouth every 8 (eight) hours as needed., Disp: 12 tablet, Rfl: 0 ??? paroxetine 40 MG tablet, , Disp: , Rfl: ??? Pyridoxine HCl (B-6) 100 MG Tab, Take 2 mg by mouth., Disp: , Rfl: ??? Riboflavin (B-2) 100 MG Tab, Take 1.7 mg by mouth., Disp: , Rfl: ??? trazodone 100 MG tablet, , Disp: , Rfl: ??? triamcinolone 0.5 % cream, , Disp: , Rfl: 0 ??? venlafaxine XR 37.5 MG 24 hr capsule, Take 1 capsule by mouth., Disp: , Rfl: ??? VENTOLIN HFA 108 (90 Base) MCG/ACT inhaler, , Disp: , Rfl: 2 ??? vitamin B-1 (B-1) 100 MG tablet, Take 1.5 mg by mouth., Disp: , Rfl: ??? vitamin D3, cholecalciferol, 1000 UNIT Tab tablet, Take 1,000 Units by mouth., Disp: , Rfl: ??? vitamin E 400 UNIT capsule, Take 400 Units by mouth., Disp: , Rfl: ??? Zinc 50 MG Tab, Take 50 mg by mouth., Disp: , Rfl: Allergies: No Known Allergies Medical History: Past Medical History: Diagnosis Date ??? Acid reflux ??? High cholesterol Surgical History: Past Surgical History: Procedure Laterality Date ??? SECTION Social History: Social History Socioeconomic History ??? Marital status: Spouse name: Not on file ??? Number of children: Not on file ??? Years of education: Not on file ??? Highest education level: Not on file Occupational History ??? Not on file Social Needs ??? Financial resource strain: Not on file ??? Food insecurity: Worry: Not on file Inability: Not on file ??? Transportation needs: Medical: Not on file Non-medical: Not on file Tobacco Use ??? Smoking status: Current Every Day Smoker Packs/day: 0.50 ??? Smokeless tobacco: Never Used Substance and Sexual Activity ??? Alcohol use: No ??? Drug use: No ??? Sexual activity: Not Currently Lifestyle ??? Physical activity: Days per week: Not on file Minutes per session: Not on file ??? Stress: Not on file Relationships ??? Social connections: Talks on phone: Not on file Gets together: Not on file Attends catholic service: Not on file Active member of club or organization: Not on file Attends meetings of clubs or organizations: Not on file Relationship status: Not on file ??? Intimate partner violence: Fear of current or ex partner: Not on file Emotionally abused: Not on file Physically abused: Not on file Forced sexual activity: Not on file Other Topics Concern ??? Not on file Social History Narrative ??? Not on file Family History: No family history on file. MADELINE BUCIO MD 12/07/2018 documented in this encounter Plan of Treatment Not on file documented as of this encounter Visit Diagnoses Diagnosis Primary osteoarthritis of left hip- Primary Primary localized osteoarthrosis, pelvic region and thigh documented in this encounter Care Teams Senior Counsel Commercial Relationship Specialty Start Date End Date Brenda Hopper MD [address] [address] PCP - General FAMILY PRACTICE 10/07/18 documented as of this encounter
--- OUTSIDE RECORDS SUMMARY | 2024-07-23 07:36 | XMS_ITS | Clinical Summary ---
Author Organization [facility] Address [address] [place] [address]. [place] [address] [place] [address] Care Team Providers Care Software Support Engineer Name Role Phone Brenda Hopper MD Primary Care Provider [phone] Allergies No known active allergies Medications ondansetron 4 MG disintegrating tablet Take 1 tablet (4 mg total) by mouth every 8 (eight) hours as needed. 12 tablet 8 Active VENTOLIN HFA 108 (90 Base) MCG/ACT inhaler 2 8 Active atorvastatin 40 MG tablet Take 40 mg by mouth. 7 Active B Complex Vitamins (VITAMIN B COMPLEX OR) 7 Active cetirizine 10 MG tablet Take 10 mg by mouth. 7 Active vitamin D3, cholecalciferol, 1000 UNIT Tab tablet Take 1,000 Units by mouth. 7 Active clobetasol 0.05 % ointment 7 Active clonazePAM 0.5 MG tablet Take 0.5 mg by mouth daily as needed. 2 9 Active Cyanocobalamin (B-12) 100 MCG Tab Take 6 mcg by mouth. 7 Active famotidine 20 MG tablet 7 Active fluticasone propionate 50 MCG/ACT nasal spray 1 spray by Each Nostril route daily. 0 9 Active folic acid 400 MCG tablet Take 400 mcg by mouth. 7 Active gabapentin 300 MG capsule Take 300 mg by mouth 2 (two) times daily. 1 9 Active ibuprofen 800 MG tablet 7 Active MAGNESIUM OR Take 500 tablets by mouth. 7 Active niacin 50 MG tablet Take 20 mg by mouth. 7 Active fish oil 1000 MG Cap capsule Take 1,000 mg by mouth. 7 Active omeprazole 20 MG capsule Take 20 mg by mouth. 7 Active paroxetine 40 MG tablet 7 Active Pyridoxine HCl (B-6) 100 MG Tab Take 2 mg by mouth. 7 Active Riboflavin (B-2) 100 MG Tab Take 1.7 mg by mouth. 7 Active vitamin B-1 (B-1) 100 MG tablet Take 1.5 mg by mouth. 7 Active trazodone 100 MG tablet 7 Active triamcinolone 0.5 % cream 0 8 Active venlafaxine XR 37.5 MG 24 hr capsule Take 1 capsule by mouth. 7 Active vitamin E 400 UNIT capsule Take 400 Units by mouth. 7 Active Zinc 50 MG Tab Take 50 mg by mouth. 7 Active Active Problems Problem Noted Date Diagnosed Date Primary osteoarthritis of left hip 12/07/2018 Chronic fatigue 11/19/2016 Headache 11/19/2016 Nicotine dependence, uncomplicated 11/19/2016 Obsessive-compulsive disorder 11/19/2016 Overview (12/02/2018): Overview: counting Psychophysiologic insomnia 11/19/2016 Pure hypercholesterolemia 11/19/2016 Snoring 11/19/2016 Immunizations Name Administration Dates Next Due Influenza (Generic) 04/29/2015 Influenza Adult (Generic) 05/12/2017,04/15/2016 Pneumococcal (Prevnar 13) 06/22/2018 Tdap (Generic) 02/05/2016 Social History Tobacco Use Types Packs/Day Years [...] 12/07/2018 2:08 PM CD T Respiratory Rate 18 08/10/2018 3:22 PM DUBBING MACHINE OPERATOR Oxygen Saturation 95% 08/10/2018 3:22 PM DUBBING MACHINE OPERATOR Inhaled Oxygen Concentration - - Weight 69 kg (152 lb 1.6 oz) 12/07/2018 2:08 PM CDT Height 157.5 cm (5' 2) 12/07/2018 2:08 PM CDT Body Mass Index 27.82 12/07/2018 2:08 PM CDT Plan of Treatment Health Maintenance Due Date Last Done Comments Colorectal Cancer Screening Colonoscopy (10 Years) 1958 Hepatitis C 1976 Mammogram Screening 1998 Zoster Vaccines (1 of 2) 2008 Pneumococcal Vaccine: 65+ Years (2 of 2 - PPSV23 or PCV20) 08/17/2018 06/22/2018 Pneumococcal Vaccine: Pediatrics (0 to 5 Years) and At-Risk Patients (6 to 64 Years) (2 of 2 - PPSV23 or PCV20) 08/17/2018 06/22/2018 Dexa Scan (General) 2023 COVID-19 Vaccine ( - 2023-2 5 season) 2024 Influenza Adult (#1) 2024 05/12/2017, 04/15/2016, 04/29/2015 DTaP, Tdap and Td Vaccines ( 2 - Td or Tdap) 02/04/2026 02/05/2016 RSV Immunization or 60+ Years (1 - 1-dose 75+ series) 2033 Meningococcal Vaccine Aged Out No griffin tello eligible based on patient's age to complete this topic RSV Immunizations Under 20 Months Aged Out No longer eligible b ased on patient's age to complete this topic Insurance [employer] [address] Care Teams Software Support Engineer Relationship Specialty Start Date End Date Brenda Hopper MD [address] [id number] PCP - General FAMILY PRACTICE 10/07/18
--- OUTSIDE RECORDS SUMMARY | 2024-07-23 07:37 | XMS_ITS | Encounter Summary ---
Author Organization [facility] Address [address] [place] [address]. [place] [address] [place] [address] Care Team Providers Care Candy Mixer Name Role Phone Joseph Purcell MD Primary Care Provider Unavailable Encounter Details Date Type Department Care Team (Late st Contact Info) Description 04/12/[address] [facility] [address] [place] [address] [place] [address] [place] [phone] Social History Tobacco Use Types Packs/Day Years Used Date Smoking Tobacco: Never Assessed Comments Unknown Sex and Gender Information Value Date Recorded Sex Assigned at Not on file Legal Sex Female 1:20 PM CDT Gender Identity Not on file Sexual Orientation Not on file documented as of this encounter Plan of Treatment Not on file documented as of this encounter Visit Diagnoses Not on filedocumented in this encounter Care Teams Candy Mixer Relationship Specialty Start Date End Date Joseph Purcell MD PCP - General 04/12/17 documented as of this encounter
--- OUTSIDE RECORDS SUMMARY | 2024-07-23 07:37 | XMS_ITS | Encounter Summary ---
Author Organization [facility] Address [address] [place] [address]. [place], [place] [id number] [place] [address] Care Team Providers Care Automatic Winder Operator Name Role Phone Joseph Purcell MD Primary Care Provider Unavailable Encounter Details Date Type Department Care Team (Late st Contact Info) Description 02/01/1993 [place] [address] Joseph Purcell MD Social History Tobacco Use Types Packs/Day Years [...] filedocumented in this encounter Care Teams Automatic Winder Operator Relationship Specialty Start Date End Date Joseph Purcell MD PCP - General 04/12/17 documented as of this encounter
--- OUTSIDE RECORDS SUMMARY | 2024-07-23 07:37 | XMS_ITS | Encounter Summary ---
Author Organization [facility] Address [address] [place] [address]. [place] [address] [place] [address] Care Team Providers Care Media Production Support Manager Name Role Phone Joseph Purcell MD Primary Care Provider Unavailable Encounter Details Date Type Department Care Team (Late st Contact Info) Description 04/05/2007 Abstract [facility] [address] [place] [address] [place] [address] [place] [phone] Social History Tobacco Use Types Packs/Day [...] on filedocumented in this encounter Care Teams Media Production Support Manager Relationship Specialty Start Date End Date Joseph Purcell MD PCP - General 04/12/17 documented as of this encounter
--- OUTSIDE RECORDS SUMMARY | 2024-07-23 07:37 | XMS_ITS | Encounter Summary ---
Author Organization [facility] Address [address] [place] [address]. [place] [address] [place] [address] Care Team Providers Care Oceanographic Meteorologist Name Role Phone Joseph Purcell MD Primary Care Provider Unavailable Reason for Visit * Reason Comments Acid Reflux Encounter Details Date Type Department Care Team (Late st Contact Info) Description 08/30/2017 9:46 PM COURIER DELIVERY DRIVER - 08/31/2017 2:37 AM COURIER DELIVERY DRIVER Emergency [facility] [place] [address] Fransisca De León MD [address] [place] [address] Power Cedeno MD [address] [place] [id number] Acid Reflux Discharge Disposition: Home or Self Care (Routine [...] Sign Reading Time Taken Comments Blood Pressure 114/67 08/31/2017 2:16 AM COURIER DELIVERY DRIVER Pulse 73 08/31/2017 2:16 AM COURIER DELIVERY DRIVER Temperature 36.6 ??C (97.8 ??F) 08/30/2017 9:40 PM CS T Respiratory Rate 18 08/31/2017 2:16 AM COURIER DELIVERY DRIVER Oxygen Saturation 93% 08/31/2017 2:16 AM COURIER DELIVERY DRIVER Inhaled Oxygen Concentration - - Weight 72.9 kg (160 lb 11.5 oz) 08/30/2017 9:40 PM COURIER DELIVERY DRIVER Height 157.5 cm (5' 2) 08/30/2017 9:40 PM COURIER DELIVERY DRIVER Body Mass Index 29.4 08/30/2017 9:40 PM COURIER DELIVERY DRIVER documented in this encounter Discharge Instructions * Discharge Instructions* Fransisca De León MD - 08/31/2017 1:51 AM COURIER DELIVERY DRIVER Images from the original note were not included. Close follow-up without fail till resolution and further diagnostic imaging as indicated with handson reassessment. Acid Reflux (Gastroesophageal Reflux Disease) Discharge Instructions, Adult About this topic GERD stands for gastroesophageal reflux disease. It is sometimes just called reflux. Normally, foodgoes from the mouth through the food pipe and then into the belly. The food pipe is also called theesophagus. This condition happens when the contents of the belly leak into the food pipe. This leaking can irritate the food pipe. You may feel a burning pain in your chest called heartburn. You may have burping, bloating, and belly pain after eating. GERD can be treated in many different ways. Sometimes, doctors use drugs or suggest changes in lifestyle. Other times, diet changes or surgery is needed. What care is needed at home? ?? Ask your doctor what you need to do when you go home. Make sure you ask questions if you do not understand what the doctor says. This way you will know what you need to do. ?? Maintain a healthy weight. ?? Avoid stress. ?? Avoid belts and clothes that are too tight. ?? Eat small meals more often. Do not skip meals. Do not eat large meals to make up for missed meals. ?? Avoid eating 2 to 3 hours before bedtime. ?? Do not to lie down for at least 2 hours after eating. ?? Raise the head of your bed 6 to 8 inches (15 to 20 cm). Use wooden blocks under the head of the bed. Just sleeping with your head raised on pillows is not enough. It can cause discomfort and make your signs worse. ?? Do not drink beer, wine, and mixed drinks (alcohol). ?? Do not smoke. What follow-up care is needed? Your doctor may ask you to make visits to the office to check on your progress. Be sure to keep these visits. What drugs may be needed? The doctor may order drugs to: ?? Relieve heartburn ?? Prevent reflux ?? Lessen acid production ?? Heal the esophageal lining Will physical activity be limited? Your physical activities will not be limited. What changes to diet are needed? ?? Limit caffeine intake. ?? Avoid eating oranges, berries, tomatoes, and other foods high in acid. ?? Eat only small amounts of spicy, fatty, and fried foods, or avoid them altogether. ?? Keep track of the foods that cause your signs to become worse. Avoid or limit these food items. What problems could happen? ?? Asthma ?? Precancerous changes in the food pipe ?? Long-term cough ?? Dental problems ?? Higher risk of cancer of the food pipe. This is esophageal cancer. ?? Narrowing of the food pipe. This is a stricture. ?? Open sore in the food pipe. This is an ulcer. When do I need to call the doctor? ?? Pain or a feeling of food getting stuck in your throat ?? Frequent throwing up or throwing up fluid that looks like blood or coffee grounds ?? Pain in the chest or upper part of the belly ?? Very bad heartburn that lasts for a long time ?? Cough, hoarseness of voice, or bad breath ?? Wheezing, shortness of breath or other problems breathing ?? Unintended weight loss or not wanting to eat ?? You are not feeling better in 2 to 3 days or you are feeling worse Teach Back: Helping You Understand The Teach Back Method helps you understand the information we are giving you. The idea is simple. After talking with the staff, tell them in your own words what you were just told. This helps to makesure the staff has covered each thing clearly. It also helps to explain things that may have been abit confusing. Before going home, make sure you are able to do these: ?? I can tell you about my condition. ?? I can tell you what changes I need to make with my eating habits to ease the reflux. ?? I can tell you what I will do if I am throwing up fluid that looks like blood or coffee grounds. Where can I learn more? National Digestive Diseases Information Clearinghouse http://digestive.niddk.nih.gov/ddiseases/pubs/gerd/ Last Reviewed Date 2013-12-13 Consumer Information Use and Disclaimer This information is not specific medical advice and does not replace information you receive from your health care provider. This is only a brief summary of general information. It does NOT include all information about conditions, illnesses, injuries, tests, procedures, treatments, therapies, discharge instructions or life-style choices that may apply to you. You must talk with your health care provider for complete information about your health and treatment options. This information should not be used to decide whether or not to accept your health care provider???s advice, instructions or recommendations. Only your health care provider has the knowledge and training to provide advice that is right for you. Copyright Copyright ?? 2017 [employer]. and its affiliates and/or licensors. All rights reserved. Acid Reflux (Gastroesophageal Reflux Disease) in Adults The Basics Written by the doctors and editors at [facility] What is acid reflux???--??Acid reflux is when the acid that is normally in your stomach backs up into the esophagus, tube that carries food from your mouth to your stomach (figure 1). Another term for acid reflux is gastroesophageal reflux disease, or GERD. What are the symptoms of acid reflux???--??The symptoms include: ?Burning in the chest, known as heartburn ?Burning in the throat or an acid taste in the throat ?Stomach or chest pain ?Trouble swallowing ?Having a raspy voice or a sore throat ?Unexplained cough Is there anything I can do on my own to improve my symptoms???--??Yes. You might feel better if you: ?Lose weight (if you are overweight) ?Raise the head of your bed by 6 to 8 inches (for example, by putting blocks of wood or rubber under 2 legs of the bed or a Styrofoam wedge under the mattress) ?Avoid foods that make your symptoms worse (examples include coffee, chocolate, alcohol, peppermint, and fatty foods) ?Cut down on the amount of alcohol you drink ?Stop smoking, if you smoke ?Eat a bunch of small meals each day, rather than 2 or 3 big meals ?Avoid lying down for 3 hours after a meal What treatments can help with my acid reflux???--??There are a few main types of medicines that canhelp with the symptoms of acid reflux: antacids, surface acting agents, histamine blockers, and proton pump inhibitors (table 1). All of these medicines work by reducing or blocking stomach acid. Butthey each do that in a different way. Antacids and surface acting agents can relieve mild symptoms, but they work only for a short time. Histamine blockers are stronger and last longer than antacids and surface acting agents. You can buyantacids and most histamine blockers without a prescription. Proton pump inhibitors are the most effective medicines in treating GERD. Some of these medicines are sold without a prescription. But there are other versions that your doctor or nurse can prescribe. Sometimes acid reflux medicines are less expensive if you get them with a prescription. Other timesnonprescription medicines are less expensive. If cost is a concern for you, ask your pharmacist howyou might reduce the cost of your medicines. Should I see a doctor or nurse about my acid reflux???--??Some people can manage their acid reflux on their own by changing their habits or taking nonprescription medicines. But you should see a doctor or nurse if: ?Your symptoms are severe or last a long time ?You cannot seem to control your symptoms ?You have had symptoms for many years You should also see a doctor or nurse right away if you: ?Have trouble swallowing, or feel as though food gets stuck on the way down ?Lose weight when you are not trying to ?Have chest pain ?Choke when you eat ?Vomit blood or have bowel movements that are red, black, or look like tar What if my child or teenager has acid reflux???--??If your child or teenager has acid reflux, take him or her to see a doctor or nurse. Do not give your child medicines to treat acid reflux without talking to a doctor or nurse. In children, acid reflux can be caused by a number of problems. It's important to have a doctor or nurse check for these problems before trying any treatments. All topics are updated as new evidence becomes available and our peer review process is complete. This topic retrieved from [employer] on: Jan 19, 2017. Topic 90742 Version 9.0 Release: 25.3 - C25.159 ?2017??[employer]??All rights reserved. figure 1: Upper digestive tract The upper digestive tract includes the esophagus??(the tube than connects the mouth to the stomach), the stomach, and the duodenum (the first part of the small intestine). Graphic 46801 Version 5.0 table 1: Medicines used to reduce stomach acid Medicine type Medicine name examples Antacids* Calcium carbonate (sample brand name: Tums) Aluminum hydroxide, magnesium hydroxide, and simethicone (sample brand name: Maalox) Surface agents Sucralfate (brand name: Carafate) Histamine blockers Ranitidine (brand name: Zantac) Famotidine (brand name: Pepcid) Cimetidine (brand name: Tagamet) Proton pump inhibitors Omeprazole (brand name: Prilosec) Esomeprazole (brand name: Nexium) Pantoprazole (brand name: Protonix) Lansoprazole (brand name: Prevacid) Dexlansoprazole (brand name: Dexilant) Rabeprazole (brand name: AcipHex) Graphic 33657 Version 10.0 Consumer Information Use and Disclaimer This information is not specific medical advice and does not replace information you receive from your health care provider. This is only a brief summary of general information. It does NOT include all information about conditions, illnesses, injuries, tests, procedures, treatments, therapies, discharge instructions or life-style choices that may apply to you. You must talk with your health care provider for complete information about your health and treatment options. This information should not be used to decide whether or not to accept your health care provider's advice, instructions or recommendations. Only your health care provider has the knowledge and training to provide advice that is right for you.The use of [employer] content is governed by the [employer] Terms of Use. ??2017 [employer] All rights reserved. Copyright ?2017??[employer]??All rights reserved. IER DELIVERY DRIVER documented in this encounter Medications at Time of Discharge atorvastatin 40 MG tablet Take 40 mg by mouth. 11/09/2016 B Complex Vitamins (VITAMIN B COMPLEX OR) 11/19/2016 cetirizine 10 MG tablet Take 10 mg by mouth. 11/09/2016 clobetasol 0.05 % ointment 11/09/2016 Cyanocobalamin (B-12) 100 MCG Tab Take 6 mcg by mouth. 11/19/2016 famotidine 20 MG tablet 11/09/2016 fish oil 1000 MG Cap capsule Take 1,000 mg by mouth. 11/19/2016 folic acid 400 MCG tablet Take 400 mcg by mouth. 11/19/2016 ibuprofen 800 MG tablet 10/14/2016 MAGNESIUM OR [...] mouth. 11/19/2016 trazodone 100 MG tablet 11/09/2016 venlafaxine XR 37.5 MG 24 hr capsule Take 1 capsule by mouth. 11/05/2016 vitamin B-1 (B-1) 100 MG tablet Take 1.5 mg by mouth. 11/19/2016 vitamin D3, cholecalciferol, 1000 UNIT Tab tablet Take 1,000 Units by mouth. 11/19/2016 vitamin E 400 UNIT capsule Take 400 Units by mouth. 11/19/2016 Zinc 50 MG Tab Take 50 mg by mouth. 11/19/2016 documented as of this encounter ED Notes * Fransisca De León MD - 08/31/2017 1:18 AM CST Chief Complaint Chief Complaint Patient presents with ??? Acid Reflux History of Present Illness Patient is a 57-year-old female presenting with acid reflux. History provided by: Patient (I have had bad acid reflux all day been belching a lot with sourness gas in my throat) Acid Reflux Location: Acid reflux symptoms epigastric into chest and throat Quality: Belching sourness gassy Severity: Mild Onset quality: Gradual Duration: Since this morning. Timing: Intermittent Progression: Waxing and waning Chronicity: Recurrent Context: Acid reflux symptoms Relieved by: Nothing no better with Prilosec Pepcid Worsened by: Acid reflux GERD Ineffective treatments: Prilosec Pepcid Associated symptoms: no abdominal pain, no chest pain, no congestion, no cough, no diarrhea, no fatigue, no fever, no rash, no shortness of breath, no sore throat, no vomiting and no wheezing Associated symptoms comment: Feeling weak and shaky belching a lot associated headache Risk factors: GERD gastritis on upper endoscopy eval 3 months ago negative colonoscopy 1 year ago Medical History ALLERGIES: No Known Allergies MEDICATIONS: Prior to Admission medications Medication Sig Start Date End Date Taking? Authorizing Provider ondansetron 4 MG disintegrating tablet Take 1 tablet (4 mg total) by mouth every 8 (eight) hours asneeded. 08/31/17 Yes Fransisca De León MD PAST MEDICAL HISTORY: Past Medical History: Diagnosis Date ??? Acid reflux ??? High cholesterol PAST SURGICAL HISTORY: Past Surgical History: Procedure Laterality Date ??? SECTION FAMILY HISTORY: No family history on file. SOCIAL HISTORY: Social History Substance Use Topics ??? Smoking status: Current Every Day Smoker Packs/day: 0.50 ??? Smokeless tobacco: Never Used ??? Alcohol use No Review of Systems Review of Systems Constitutional: Negative for chills, fatigue and fever. HENT: Negative for congestion, dental problem, ear discharge, facial swelling, sinus pressure and sore throat. Eyes: Negative for pain. Respiratory: Negative for cough, chest tightness, shortness of breath and wheezing. Cardiovascular: Negative for chest pain. Gastrointestinal: Negative for abdominal pain, diarrhea and vomiting. Endocrine: Negative for heat intolerance and polydipsia. Genitourinary: Negative for enuresis and hematuria. Musculoskeletal: Negative for gait problem and joint swelling. Skin: Negative for pallor and rash. Allergic/Immunologic: Negative for environmental allergies. Neurological: Negative for facial asymmetry and numbness. Hematological: Negative for adenopathy. Does not bruise/bleed easily. Psychiatric/Behavioral: Negative for confusion, decreased concentration and dysphoric mood. All other systems reviewed and are negative. Physical Exam Filed Vitals: 08/30/17 2140 08/31/17 0009 BP: 109/84 132/69 Pulse: 78 70 Resp: 18 18 Temp: 97.8 ??F (36.6 ??C) TempSrc: Oral SpO2: 96% 97% Weight: 72.9 kg (160 lb 11.5 oz) Height: 5' 2 (1.575 m) Physical Exam Constitutional: She is oriented to person, place, and time. Vital signs are normal. She appears well-developed. Non-toxic appearance. She does not have a sickly appearance. She does not appear ill. No distress. Well-appearing belching a lot abdomen is soft HENT: Head: Normocephalic. Eyes: EOM are normal. Neck: No JVD present. No tracheal deviation present. No thyromegaly present. Cardiovascular: Normal rate and regular rhythm. No murmur heard. Pulmonary/Chest: No respiratory distress. She has no wheezes. Abdominal: There is no tenderness. There is no rebound. Musculoskeletal: She exhibits no edema. Neurological: She is alert and oriented to person, place, and time. She displays normal reflexes. No cranial nerve deficit. Skin: Skin is warm and dry. No rash noted. Psychiatric: She has a normal mood and affect. Her behavior is normal. Thought content normal. Nursing note and vitals reviewed. 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: john : 1960 Requested By: FRANSISCA DE LEÓN Order Number: [id number] Reading MD: Measurements Intervals [place] Rate: 71 P: 54 [place]: 130 QRS: 53 QRSD: 85 T: 59 QT: 395 QTc: 432 Interpretive Statements SINUS RHYTHM POSSIBLE LEFT ATRIAL ENLARGEMENT No previous ECG available for comparison LABORATORY STUDIES: Results for orders placed or performed during the hospital encounter of 08/30/17 CBC W/DIFF AUTOMATED Result Value Ref Range WBC 12.2 (H) 4.8 - 10.8 x10'3/uL RBC 4.70 4.20 - 5.40 x10'6/uL HGB 13.8 12.0 - 16.0 G/DL HCT 41.8 38.0 - 48.0 % MCV 88.9 81.0 - 99.0 FL MCH 29.4 27.0 - 31.0 PG MCHC 33.0 32.0 - 36.0 G/DL RDW 12.4 11.5 - 14.5 % PLT 301 130 - 400 x10'3/uL MPV 9.6 9.3 - 12.2 FL NEUTROPHILS 59.3 43.0 - 65.0 % LYMPHOCYTES 26.7 20.0 - 46.0 % MONOCYTES 9.4 5.0 - 12.0 % EOSINOPHILS 3.8 (H) 1.0 - 3.0 % BASOPHILS 0.5 0.0 - 1.0 % IMMATURE GRANS 0.3 0.0 - 1.0 % COMPREHENSIVE METABOLIC PANEL Result Value Ref Range GLUCOSE 86 70 - 99 MG/DL BUN 15 7 - 18 MG/DL CREATININE 0.71 0.55 - 1.02 MG/DL SODIUM 141 136 - 145 MMOL/L POTASSIUM 4.0 3.5 - 5.1 MMOL/L CHLORIDE 109 (H) 100 - 108 MMOL/L CO2 25.0 21 - 32 MMOL/L CALCIUM 8.3 (L) 8.5 - 10.1 MG/DL TOTAL BILIRUBIN 0.1 (L) 0.2 - 1.2 MG/DL TOTAL PROTEIN 7.1 6.4 - 8.2 G/DL ALBUMIN 3.8 3.4 - 5.0 G/DL AST 23 15 - 37 U/L ALT 24 14 - 55 U/L ALK PHOS 92 50 - 136 U/L ANION GAP 11.0 8 - 20 MMOL/L BUN CREATININE RATIO 21.1 6 - 26 A/G RATIO 1.2 1.0 - 2.0 RATIO eGFR Non-Afr. Amer. >60 >60 ML/MIN/1.73 M2 eGFR Afr. Amer. >60 >60 ML/MIN/1.73 M2 LIPASE Result Value Ref Range LIPASE 194 73 - 393 UNITS/L IMAGING STUDIES No orders to display ED Course / Medical Decision Making Workup Notes Comment By Time Symptoms system with acid reflux nothing to suggest acute abdomen nor acute coronary syndrome Fransisca De León MD 08/31 0124 Feeling much better asymptomatic now with IV fluids IV Pepcid ready to go Fransisca De León MD 08/31 0148 [facility] Number of Diagnoses or Management Options Diagnosis management comments: Suspect acid reflux nothing to suggest acute coronary syndrome acuteabdomen check lab Clinical Impression Acid reflux disease (Primary) Leukocytosis, unspecified type Disposition: Discharge Fransisca De León MD 08/31/17 0152 IER DELIVERY DRIVER * Tiffanie Jiménez RN - 08/30/2017 9:41 PM CST I have had acid reflux all day long, I am not coughing up anything, I can't lay down without it burning. IER DELIVERY DRIVER documented in this encounter Plan of Treatment Not on file documented as of this encounter Procedures Procedure Name Priority Date/Time Associated Diagnosis Comments ECG 12-LEAD STAT 08/31/2017 8:02 AM COURIER DELIVERY DRIVER COMPREHENSIVE METABOLIC PANEL STAT 08/30/2017 9:52 PM COURIER DELIVERY DRIVER CBC W/DIFF AUTOMATED STAT 08/30/2017 9:52 PM COURIER DELIVERY DRIVER LIPASE STAT 08/30/2017 9:52 PM COURIER DELIVERY DRIVER documented in this encounter Results * ECG 12 lead (08/31/2017 8:02 AM COURIER DELIVERY DRIVER) 08/31/2017 8:02 AM COURIER DELIVERY DRIVER Narrative [facility] - 08/31/2017 8:02 AM COURIER DELIVERY DRIVER ?[facility] ? [address] [place] ? Test Date: ?2017-08-30 Pat Name: ? BRISA MARIFER ? Department: ?? 41 ? Room: ? EXAM13 Gender: ? Female ? Dining Room Cashier: ?? lp : ?1960 ? Requested By: FRANSISCA DAKOTAHPOONAMGABRIEL Order Number: [id number] ? Reading MD: ?? Law Renee ? Measurements Intervals ?[place] ? Rate: ? 71 ? P: ?54 [place]: ? 130 ?QRS: ?53 QRSD: ? 85 ? T: ?59 QT: ? 395 ? QTc: ?432 ? Interpretive Statements SINUS RHYTHM POSSIBLE LEFT ATRIAL ENLARGEMENT No previous ECG available for comparison Dr. Fransisca De León M.D. Other ischemic changes, not STEMI Preliminary EKG interpretation by ED Physician CRITICAL ALERT ISSUED ON 08-30-2017 21:51:51 IER DELIVERY DRIVER Procedure Note Law Renee MD - 08/31/[address] Test Date: 2017-08-30 Pat Name: BRISA CAICEDO Department: 41 Room: [facility] Gender: Female Dining Room Cashier: ojhn : 1960 Requested By: FILI Order Number: [id number] Reading MD: Law Renee Measurements Intervals [place] Rate: 71 P: 54 [place]: 130 QRS: 53 QRSD: 85 T: 59 QT: 395 QTc: 432 Interpretive Statements SINUS RHYTHM POSSIBLE LEFT ATRIAL ENLARGEMENT No previous ECG available for comparison Dr. Fransisca De León M.D. Other ischemic changes, not STEMI Preliminary EKG interpretation by ED Physician CRITICAL ALERT ISSUED ON 08-30-2017 21:51:51 IER DELIVERY DRIVER Fransisca De León MD ECG ORDERABLES Final Result Performing Organization Address City/[facility]/ZIP Co de Phone Number [facility] * LIPASE (08/30/2017 9:52 PM COURIER DELIVERY DRIVER) LIPASE 194 73 - 393 UNITS/L 08/30/2017 10:30 PM COURIER DELIVERY DRIVER [facility] 08/30/2017 9:52 PM COURIER DELIVERY DRIVER Fransisca De León MD LABORATORY Final Result Performing Organization Address City/[facility]/ZIP Co de Phone Number [facility] [address] [place] [address], [place] [phone] * (ABNORMAL) COMPREHENSIVE METABOLIC PANEL (08/30/2017 9:52 PM [facility] GLUCOSE 86 70 - 99 MG/DL 08/30/2017 10:30 PM [facility] BUN 15 7 - 18 MG/DL 08/30/2017 10:30 PM [facility] CREATININE S/P/B 0.71 0.55 - 1.02 MG/DL 08/30/2017 10:30 PM [facility] SODIUM S/P/B 141 136 - 145 MMOL/L 08/30/2017 10:30 PM [facility] POTASSIUM S/P/B 4.0 3.5 - 5.1 MMOL/L 08/30/2017 10:30 PM [facility] CHLORIDE S/P/B 109(H) 100 - 108 MMOL/L 08/30/2017 10:30 PM [facility] CO2 25.0 21 - 32 MMOL/L 08/30/2017 10:30 PM [facility] CALCIUM S/P/B 8.3(L) 8.5 - 10.1 MG/DL 08/30/2017 10:30 PM [facility] BILIRUBIN TOTAL S/P/B 0.1(L) 0.2 - 1.2 MG/DL 08/30/2017 10:30 PM [facility] TOTAL PROTEIN S/P/B 7.1 6.4 - 8.2 G/DL 08/30/2017 10:30 PM [facility] ALBUMIN S/P/B 3.8 3.4 - 5.0 G/DL 08/30/2017 10:30 PM [facility] AST 23 15 - 37 U/L 08/30/2017 10:30 PM [facility] ALT 24 14 - 55 U/L 08/30/2017 10:30 PM [facility] ALKALINE PHOSPHATASE S/P/B 92 50 - 136 U/L 08/30/2017 10:30 PM [facility] ANION GAP 11.0 8 - 20 MMOL/L 08/30/2017 10:30 PM [facility] BUN CREATININE RATIO 21.1 6 - 26 08/30/2017 10:30 PM [facility] A/G RATIO 1.2 1.0 - 2.0 RATIO 08/30/2017 10:30 PM [facility] EGFR NON-AFR. AMER. >60 >60 ML/MIN/1.7 3 M2 08/30/2017 10:30 PM [facility] EGFR AFR. AMER. >60 >60 ML/MIN/1.7 3 M2 08/30/2017 10:30 PM [facility] Comment: NOTE: eGFR is not calculated for patients <18 years of age. This is an estimated GFR (CKD EPI) and should not be used for calculating drug doses. 08/30/2017 9:52 PM COURIER DELIVERY DRIVER Fransisca De León MD LABORATORY Final Result [facility] [address] [place] [address], * (ABNORMAL) CBC W/DIFF AUTOMATED (08/30/2017 9:52 PM COURIER DELIVERY DRIVER) WBC 12.2(H) 4.8 - 10.8 x10'3/uL 08/30/2017 10:08 PM [facility] RBC 4.70 4.20 - 5.40 x10'6/uL 08/30/2017 10:08 PM [facility] HGB 13.8 12.0 - 16.0 G/DL 08/30/2017 10:08 PM [facility] HCT 41.8 38.0 - 48.0 % 08/30/2017 10:08 PM [facility] MCV 88.9 81.0 - 99.0 FL 08/30/2017 10:08 PM [facility] MCH 29.4 27.0 - 31.0 PG 08/30/2017 10:08 PM [facility] MCHC 33.0 32.0 - 36.0 G/DL 08/30/2017 10:08 PM [facility] RDW 12.4 11.5 - 14.5 % 08/30/2017 10:08 PM [facility] PLT 301 130 - 400 x10'3/uL 08/30/2017 10:08 PM [facility] MPV 9.6 9.3 - 12.2 FL 08/30/2017 10:08 PM [facility] NEUTROPHILS % 59.3 43.0 - 65.0 % 08/30/2017 10:08 PM [facility] LYMPHOCYTES % 26.7 20.0 - 46.0 % 08/30/2017 10:08 PM [facility] MONOCYTES % 9.4 5.0 - 12.0 % 08/30/2017 10:08 PM [facility] EOSINOPHILS 3.8(H) 1.0 - 3.0 % 08/30/2017 10:08 PM [facility] BASOPHILS 0.5 0.0 - 1.0 % 08/30/2017 10:08 PM [facility] IMMATURE GRANS % 0.3 0.0 - 1.0 % 08/30/2017 10:08 PM [facility] 08/30/2017 9:52 PM COURIER DELIVERY DRIVER Fransisca De León MD LABORATORY Final Result [facility] [address] [place] [address], documented in this encounter Visit Diagnoses Diagnosis Acid reflux disease- Primary Esophageal reflux Leukocytosis, unspecified type documented in this encounter Administered Medications Inactive Administered Medications - up to 3 most recent administrations Medication Order MAR Action Action Date Dose Rate Site famotidine (PEPCID) injection 40 mg 40 mg, Intravenous, Once, 1 dose, On e 08/31/17 at 0100, IV Push over 2 minutes Given 08/31/2017 12:48 AM COURIER DELIVERY DRIVER 40 mg ondansetron (ZOFRAN) injection 4 mg 4 mg, Intravenous, Every 1 hour PRN, Nausea, 2 doses, Starting on Wed08/31/17 at 0033, Until Tu08/31/17 at 0437, IV push over 2-5 minutes. Given 08/31/2017 12:48 AM COURIER DELIVERY DRIVER 4 mg sodium chloride 0.9% bolus infusion SOLN 1,000 mL 1,000 mL, Intravenous, Administer over 15 Minutes, Once, 1 dose, On Wed08/31/17 at 0100 New Bag 08/31/2017 12:48 AM COURIER DELIVERY DRIVER 1,000 mLs documented in this encounter Active and Recently Administered Medications Times are shown in COURIER DELIVERY DRIVER. Scheduled Medication Order 08/29/2017 08/30/2017 08/31/2017 famotidine (PEPCID) injection 40 mg (COMPLETED) 40 mg, Intravenous, Once, 1 dose, On Wed08/31/17 at 0100, IV Push over 2 minutes 0048 (Given - Provid er: Nolvia Villalobos RN) sodium chloride 0.9% bolus infusion SOLN 1,000 mL (COMPLETED) 1,000 mL, Intravenous, Administer over 15 Minutes, Once, 1 dose, On Wed08/31/17 at 0100 0048 (New Bag - Prov ider: Nolvia Villalobos RN)0232 (Infusion Stop Time - Provider: Nolvia Villalobos RN) PRN Medication Order 08/29/2017 08/30/2017 08/31/2017 ondansetron (ZOFRAN) injection 4 mg 4 mg, Intravenous, Every 1 hour PRN, Nausea, 2 doses, Starting on Wed08/31/17 at 0033, Until Wed08/31/17 at 0437, IV push over 2-5 minutes. 0048 (Given - Provid er: Nolvia Villalobos RN) documented in this encounter Care Teams Oceanographic Meteorologist Relationship Specialty Start Date End Date Md Generic Conversion, PCP - General 04/12/17 documented as of this encounter
--- OUTSIDE RECORDS SUMMARY | 2024-07-23 07:37 | XMS_ITS | Encounter Summary ---
Author Organization [facility] Address [address] [place] [address]. [place], [place] [address] [place] [id number] Care Team Providers Care Log Rafter Name Role Phone Joseph Romero MD Primary Care Provider Unavailable Encounter Details Date Type Department Care Team (Late st Contact Info) Description 04/12/2017 Emergency [facility] [place] [address] Casey Sheridan MD Social History Tobacco Use Types Packs/Day [...] Name Priority Date/Time Associated Diagnosis Comments URINALYSIS WI REFLEX TO CULTURE STAT 04/12/2017 3:31 PM CDT URINE BACTERIA CULTURE Routine 04/12/2017 3:31 PM CDT documented in this encounter Results * CULTURE URINE (04/12/2017 3:31 PM CDT) SPEC DESCRIPTION URINE CLEAN CATCH 04/12/2017 4:[address] [facility] SPECIAL REQUESTS NO SPECIAL REQUEST 04/12/2017 4:[address] [facility] CULTURE RESULT >100,000 COL/ML BETA STREPTOCOCCUS GROUP B SUSCEPTIBILTY NOT ROUTINELY PERFORMED. SAVING ISOLATE FOR 5 DAYS. CONTACT MICROBIOLOGY DEPARTMENT IF FURTHER WORKUP IS INDICATED. 04/14/2017 11:[address] [facility] CULTURE RESULT POLYMICROBIAL GROWTH CONSISTENT WITH NORMAL GENITAL TIMMY. ?? SUSCEPTIBILITIES NOT ROUTINELY PERFORMED. 04/14/2017 11:[address] [facility] URINE SPECIMEN OBTAINED BY CLEAN CATCH PROCEDURE / Unknown 04/12/2017 3:31 PM CDT 04/12/2017 4:02 PM CDT us Generic Conversion Md ROMERO MICROBIOLOGY - GENERAL ORDERABLES Final Result [facility] [place] [address], [place] [phone] * (ABNORMAL) URINALYSIS WI REFLEX TO CULTURE (04/12/2017 3:31 PM CDT) SPECIMEN TYPE URINE CLEAN CATCH 04/12/2017 3:[address] [facility] COLOR (U) YELLOW 04/12/2017 3:[address] [facility] TRANSPARENCY CLOUDY 04/12/2017 3:[address] [facility] SPECIFIC GRAVITY (U) 1.014 1.001 - 1.030 04/12/2017 3:[address] [facility] U PH 6.0 5.0 - 9.0 04/12/2017 3:[address] [facility] LEUKOCYTES (U) LARGE(A) NEGATIVE 04/12/2017 3:[address] [facility] NITRITES NEGATIVE NEGATIVE 04/12/2017 3:[address] [facility] PROTEIN (U) NEGATIVE <30 MG/DL 04/12/2017 3:[address] [facility] URINE GLUCOSE NEGATIVE NEGATIVE MG/DL 04/12/2017 3:[address] [facility] KETONES MG/DL (U) NEGATIVE NEGATIVE MG/DL 04/12/2017 3:[address] [facility] UROBILINOGEN NEGATIVE NEGATIVE MG/DL 04/12/2017 3:[address] [facility] BILIRUBIN (U) NEGATIVE NEGATIVE MG/DL 04/12/2017 3:[address] [facility] BLOOD (U) NEGATIVE NEGATIVE 04/12/2017 3:[address] [facility] CULTURE & SENSITIVITY INDICATED? SPECIMEN SETUP FOR CULTURE 04/12/2017 3:[address] [facility] SQUAMOUS EPITHELIALS MANY /LPF 04/12/2017 4:[address] [facility] RENAL EPI RARE /HPF 04/12/2017 4:[address] [facility] MUCUS RARE /LPF 04/12/2017 4:[address] [facility] WBC/HPF 3 <6 /HPF 04/12/2017 4:[address] [facility] RBC/HPF 2 <6 /HPF 04/12/2017 4:[address] [facility] 04/12/2017 3:31 PM CDT 04/12/2017 3:37 PM CDT us Generic Conversion Md ROMERO URINE ORDERABLES Final Result [facility] [place] [address], [place] [phone] documented in this encounter Visit Diagnoses Diagnosis Acute bronchitis documented in this encounter Care Teams Log Rafter Relationship Specialty Start Date End Date Joseph Romero MD PCP - General 04/12/17 documented as of this encounter
--- OUTSIDE RECORDS SUMMARY | 2024-07-23 07:38 | XMS_ITS | Clinical Summary ---
Author Organization [facility] doherty [employer] Address [address] [place] [address] Care Team Providers Care Mountain Or Glacier Guide Name Role Phone Taniya Grimes MD Primary Care Provider [phone] Allergies Active Allergy Reactions Criticality Noted Date Comments Kiwi Anaphylaxis High 01/10/2021 Medications atorvastatin (LIPITOR) 40 mg tablet TAKE 1 TABLET BY MOUTH EVERYDAY AT BEDTIME 1 Active famotidine (PEPCID) 20 mg tablet Take 20 mg by mouth 2 times daily as needed. 0 Active pantoprazole (PROTONIX) 40 mg Tablet, Delayed Release (E.C.) TAKE 1 TABLET BY MOUTH DAILY FOR STOMACH 1 Active fluticasone propionate (FLONASE) 50 mcg/spray [place], Suspension nasal inhaler Administer 2 Sprays in each nostril. 9 Active gabapentin (NEURONTIN) 300 mg capsule TAKE 1 CAPSULE BY MOUTH THREE TIMES A DAY 9 Active traZODone (DESYREL) 50 mg tablet Take 50 mg by mouth. 0 Active clonazePAM (KlonoPIN) 0.5 mg Tablet Take 0.5 mg by mouth 2 times daily. 9 Active levothyroxine 112 mcg tablet Take 112 mcg by mouth daily. 1 Active GLUCOSAM-CHONDR JOV-K-CXRMOXVMT ORAL Take 1 Tablet by mouth. Active PARoxetine HCl (PAXIL) 40 mg tablet Take 40 mg by mouth daily. Active vitamin E 200 unit Capsule Take 200 Units by mouth daily. Active vitamin B complex (B COMPLEX 1 ORAL) Take by mouth. Active Fish Oil-[place]-3 Fatty Acids 360-1,200 mg Capsule Take 3 Capsules by mouth. Active acetaminophen (TYLENOL) 500 mg tablet Take 1,000 mg by mouth every 8 hours as needed. Active Active Problems No known active problems Family History Medical History Relation Name Comments Diabetes Mother Relation Name Status Comments Brother 1 Alive Brother 2 Alive Daughter Alive Father Mother Alive Sister 1 Alive Sister 2 Alive Sister 3 Alive Son Alive Social History Tobacco Use Types Packs/Day Years Used Date Smoking Tobacco: Every Day Cigarettes Tobacco Cessation:Ready to Q uit: Yes; Counseling Given: No Comments:3-5 cigarrettes per day Alcohol Use Standard Drinks/Week Comments Never 0 (1 standard drink = 0.6 oz pur e alcohol) Comments Unknown Sex and Gender Information Value Date Recorded Sex Assigned at Not on file Legal Sex Female 9:53 AM CDT Gender Identity Not on file Sexual Orientation Not on file Last Filed Vital Signs Vital Sign Reading Time Taken Comments Blood Pressure 120/74 01/10/2021 11:09 AM CDT Pulse 80 01/10/2021 11:09 AM CDT Temperature 36.7 ??C (98.1 ??F) 01/10/2021 11:09 AM C DT Respiratory Rate - - Oxygen Saturation 96% 01/10/2021 11:09 AM CDT Inhaled Oxygen Concentration - - Weight 63.3 kg (139 lb 9.6 oz) 01/10/2021 11:09 AM CDT Height 157.5 cm (5' 2) 01/10/2021 11:09 AM CDT Body Mass Index 25.53 01/10/2021 11:09 AM CDT Plan of Treatment Health Maintenance Due Date Last Done Comments BREAST CANCER SCREENING 1998 COLORECTAL SCREENING 2003 Colorectal Cancer Screening 2003 FIT-DNA Q 3 years 2003 FIT/FOBT Q 1 year 2003 Flex Sig/CT Colonography Q 5 years 2003 ZOSTER VACCINE (1 of 2) 2008 PNEUMOCOCCAL VACCINE 65+ YEA RS (2 of 2 - PPSV23) 08/17/2018 06/22/2018 OSTEOPOROSIS SCREENING 2023 INFLUENZA VACCINE (#1) 2024 05/13/2020, 2018 DTAP/TDAP/TD VACCINES (2 - Td or Tdap) 02/04/2026 RSV VACCINE (60+ or ) (1 - 1-dose 75+ series) 2033 Insurance GENERIC MEDICAID MANAGED Care Teams Mountain Or Glacier Guide Relationship Specialty Start Date End Date Taniya Grimes MD PCP - General Pediatrics 01/23/21
--- OUTSIDE RECORDS SUMMARY | 2024-07-23 07:38 | XMS_ITS | Encounter Summary ---
Author Organization [facility] Address [address] [place] [address] Care Team Providers Care Job Development Specialist Name Role Phone Unavailable Primary Care Provider Unavailabl e Encounter Details Date Type Department Care Team (Late st Contact Info) Description 01/14/2021 Orders Only [facility] Oncology and Hematology - Abdirashid [address] [facility] [address] [place] [address] Luigi Jane MD [address] [facility] [address] [place] [address] Thyroid cancer Social History Tobacco Use Types Packs/Day Years Used Date Smoking Tobacco: Every Day Cigarettes Comments:3-5 cigarrettes per day Alcohol Use Standard [...] have Coronavirus / COVID-19? No / Unsure 01/10/2021 10:41 AM CDT documented as of this encounter Plan of Treatment Not on file documented as of this encounter Procedures Procedure Name Priority Date/Time Associated Diagnosis Comments BASIC METABOLIC PANEL Routine 01/10/2021 documented in this encounter Results * BASIC METABOLIC PANEL (01/10/2021) Blood us Abstract Provider CHEMISTRY ORDERABLES Final Res ult documented in this encounter Visit Diagnoses Diagnosis Thyroid cancer Malignant neoplasm of thyroid gland documented in this encounter
--- OUTSIDE RECORDS SUMMARY | 2024-07-23 07:38 | XMS_ITS | Encounter Summary ---
Author Organization [facility] Address [address] [place] [address] Care Team Providers Care Professor Of Literacy Name Role Phone Unavailable Primary Care Provider Unavailabl e Encounter Details Date Type Department Care Team (Late st Contact Info) Description 06/26/2020 3:00 PM MUD ENGINEER Rapid Evaluation [facility] Community Testing [facility] [address] [place] [address] Social History Tobacco Use Types Packs/Day Years Used Date Smoking Tobacco: Never Assessed Comments Unknown Sex and Gender Information Value Date Recorded Sex Assigned at Not on file Legal Sex Female 2:37 PM MUD ENGINEER Gender Identity Not on file Sexual Orientation Not on file documented as of this encounter Plan of Treatment Not on file documented as of this encounter Visit Diagnoses Not on filedocumented in this encounter
--- OUTSIDE RECORDS SUMMARY | 2024-07-23 07:38 | XMS_ITS | Encounter Summary ---
Author Organization [facility] Address [address] [place] [address] Care Team Providers Care Commercial Cleaner Name Role Phone Unavailable Primary Care Provider Unavailabl e Encounter Details Date Type Department Care Team (Late st Contact Info) Description 06/26/2020 Lab Requisition [facility] Community Testing [facility] [address] [place] [address] Miles, [place] [address] [place] [address] Social History Tobacco Use Types Packs/Day Years Used Date Smoking Tobacco: Never Assessed Comments Unknown Sex and Gender Information Value Date Recorded Sex Assigned at Not on file Legal Sex Female 2:37 PM FACILITY SALES AND ADMIN Gender Identity Not on file Sexual Orientation Not on file documented as of this encounter Plan of Treatment Not on file documented as of this encounter Procedures Procedure Name Priority Date/Time Associated Diagnosis Comments SARS-COV-2 PCR [facility] ONLY Routine 06/26/2020 2:47 PM FACILITY SALES AND ADMIN documented in this encounter Visit Diagnoses Not on filedocumented in this encounter
--- OUTSIDE RECORDS SUMMARY | 2024-07-23 07:38 | XMS_ITS | Clinical Summary ---
Author Organization [facility] Address [address] [place] [address] Care Team Providers Care Manufacturing Applications Engineer Name Role Phone Unavailable Primary Care Provider Unavailabl e Social History Tobacco Use Types Packs/Day Years Used Date Smoking Tobacco: Never Assessed Comments Unknown Sex and Gender Information Value Date Recorded Sex Assigned at Not on file Legal Sex Female 2:37 PM COMB FIXER Gender Identity Not on file Sexual Orientation Not on file Plan of Treatment Health Maintenance Due Date Last Done Comments DEXA Bone Density 1958 Hepatitis C Virus (HCV) Screening 1958 Pap Smear 1979 Cervical Cancer Screening (CCS) 1988 HPV/Cotest 1988 Colonoscopy 2003 Colorectal Cancer Screening 2003 Cologuard 2008 Immunochemical Fecal Occult Blood 2008 Mammogram 2008 Zoster Immunization (1 of 2) 2008 Pneumococcal Immunization (5 0+ years) (2 of 2 - PPSV23) 06/22/2019 06/22/2018 Influenza Immunization (#1) 2024 11/0 03/2020, 05/12/2017, 04/15/2016 SARS-COV-2 Immunization ( season) 2024 Respiratory Syncytial Virus (RSV) Immunization (Adult) (1 - 1-dose 75+ series) 2033 DTaP/Tdap/Td Immunization Discontinued 02/05/2016 TdaP Immunization Completed 02/05/2016 Pneumococcal Immunization Combined Discontinued 06/22/2018 Hepatitis B Immunization Aged Out No longer eligible based on patient's age to complete this topic Meningococcal Immunization (ACWY) Aged Out No longer eligible based on patient's age to complete this topic Rotavirus Immunization Aged Out No lo nger eligible based on patient's age to complete this topic
--- OUTSIDE RECORDS SUMMARY | 2024-07-23 07:39 | XMS_ITS | Continuity of Care Document ---
Author Organization [employer] Address [address] [place] [address] Phone Care Team Providers Care Design And Sales Consultant Name Role Phone Yaya Villatoro MD Unavailable Unavailab le Allergies, Adverse Reactions, Alerts Substance Reaction Status Criticality kiwi Active No Information Medications Medication Instructions Dosage Effective Dates (start - stop) Status Comments atorvastatin 40 mg tablet take 1 tablet by oral route every day at bedtime 40 MG - Active CYCLOBENZAPRINE 5 MG TABLET TAKE 1 TABLET BY MOUTH THREE TIMES A DAY NEEDED - Active gabapentin 300 mg capsule take 1 capsule by oral route 3 times every day 300 MG - Active CELECOXIB 200 MG CAPSULE TAKE 1 CAPSULE BY MOUTH EVERY DAY NEEDED - Active PANTOPRAZOLE SOD DR 40 MG TAB TAKE 1 TABLET BY MOUTH EVERY DAY - Active OXYBUTYNIN CL ER 5 MG TABLET TAKE 1 TABLET BY MOUTH EVERY DAY - Active clobetasol 0.05 % topical ointment apply by topical route 2 times every day a thin layer to the affected area(s) as needed 0.00 - Active albuterol sulfate HFA 90 mcg/actuation aerosol inhaler inhale 2 puffs by Inhalation route every 4 - 6 hours as needed for wheezing - Active Lenvima 20 mg/day (10 mg x 2) capsule take by oral route every day at the same time each day per package directions 0.00 - Active hydroxyzine HCl 10 mg tablet - Active calcitriol 0.5 mcg capsule take 2 capsule by oral route every day 1 MCG - Active bupropion HCl 100 mg tablet take 2 tablet by oral route every day 200 MG - Active paroxetine 40 mg tablet take 1 tablet by oral route every day 40 MG - Active trazodone 50 mg tablet take 1 tablet by oral route every day at bedtime 50 MG - Active levothyroxine 112 mcg tablet take 1 tablet by oral route every day 112 MCG - Active famotidine 20 mg tablet take 1 tablet by oral route 2 times every day as needed - Active Procedures Procedure Date CBC, INC PLATELETS AND DIFFERENTIAL COMPREHEN METABOLIC PANEL [facility] FREE T4 (FT4) HEMOGLOBIN A1C HGA1C, GLYCO PARATHYROID HORMONE (PTH) THYROID STIMULATION HORMONE(TSH) 2023 VITAMIN D, 25-HYDROXY ROUTINE VENIPUNCTURE OFFICE [id number] BODY MASS INDEX DOCD SYST BP LT 130 MM HG DIAST BP < 80 MM HG PNEUMOVAX ADM MEDICARE Pneumococcal Conjugate Vaccine (PCV20) CBC, INC PLATELETS AND DIFFERENTIAL COMPREHEN METABOLIC PANEL [facility] 4 HEMOGLOBIN A1C HGA1C, GLYCO ROUTINE VENIPUNCTURE PHOSPHORUS (PO4), INORGANIC (S) 024 VITAMIN D, 25-HYDROXY OFFICE [id number] BODY MASS INDEX DOCD SYST BP LT 130 MM HG DIAST BP < 80 MM HG Clin depression screen doc OFFICE [id number] BODY MASS INDEX DOCD SYST BP GE 130 - 139MM HG DIAST BP 80-89 MM HG Admin influenza virus vac FLU VAC NO PRSV 4 CHRIS, 0.5mL DOSAGE CBC, INC PLATELETS AND DIFFERENTIAL COMPREHEN METABOLIC PANEL CMP Sep-05-202 3 HEMOGLOBIN A1C HGA1C, GLYCO LIPID PANEL MICROALBUMIN, QN (URINE) CREATININE, (U-R) THYROID STIMULATION HORMONE(TSH) 2022 ROUTINE VENIPUNCTURE URINALYSIS, DIPSTICK (UA) - Office Lab S OFFICE [id number] BODY MASS INDEX DOCD SYST BP GE 130 - 139MM HG DIAST BP 80-89 MM HG Clin depression screen doc Advance Directives Directive Yes / No Effective Date File Name Life Support Not Answered N/A N/A Intubation Not Answered N/A N/A Antibiotics Not Answered N/A N/A IV Fluid Support Not Answered N/A N/A Tube Feed Not Answered N/A N/A Other Directive N/A N/A WARNING:The information contained in this section is historical and is provided for information only and does not constitute a legal document or any assurance that the information is still accurate. Please verify the information with the landa of the legal document before using it for clinical purposes. Encounters Encounter Description Practice Location Reason(s) For Visit Diagnoses Date Provider Providers Copied on Encounter [facility], [address], [place], [place], [address] , tel: [phone] [place] Dysphagia, oropharyngeal phase 5 Foersterling Yaya. [address] [place] [address], [place], [place], [address], . tel:[phone] [facility], [address], [place], [place], [address] , [place] tel: [phone] [place] No Information 5 Foersterling Yaya. [address] [place] [address], [place], [place], [address], [place]. tel:[phone] [facility], [address], [place], [place], [address] , tel: [phone] [place] No Information 4 Foersterling Yaya. [address] [place] [address], [facility] [address], [place], [place], [address], [place]. tel:[phone] [facility], [address], [place], [place], [address] , tel: [phone] [place] Thyroid cancer Jun- 4 Foersterling Yaya. [address] [place] [address], [facility] [address], [place], [place], [address], [place]. tel:[phone] [facility], [address], [place], [place], [address] , [place] tel: [phone] [place] Malignant neoplasm of thyroid glandSpecific developmental disorder of motor function Jun-0 4 Foersterling Yaya. [address] [place] [address], [facility] [address], [place], [place], [address], [place]. tel:[phone] [facility], [address], [place], [place], [address] , tel: [phone] [place] No Information 4 Foersterling Yaya. [address] [place] [address], [facility] [address], [place], [address], [place]. tel:[phone] [facility], [address], [place], [place], [address] , [place] tel: [phone] [place] No Information 4 Foersterling Yaya. [address] [place] [address], [place] [address], [place], [place], [address], . tel:[phone] OFFICE [id number] TAILED [facility], [address], [place], [place], [address] , tel: [phone] [place] 3 month follow up. (chief complaint) Secondary malignant neoplasm of boneGastroesopha geal reflux disease, unspecified whether esophagitis presentOveractiv e bladderMajor depressive disorder, recurrent, moderateBody mass index [BMI] 23.0-23.9, adultPrediabetes Postprocedural hypothyroidismLu mbar radiculopathyHyp erlipidemia, unspecified hyperlipidemia typeMalignant neoplasm of thyroid glandOsteoarthri tis of left hip, unspecified osteoarthritis typeOther hypoparathyroidi smTobacco useMild protein-calorie malnutrition 4 Foersterling Yaya. [address] [place] [address], [facility] [address], [place], [place], [address], [place]. tel:[phone] Referring Provider: Yaya dominguez, [address] [facility] [address], [place], [address] . tel:[phone] [facility], [address], [place], [place], [address] , [place] tel:[phone] [place] Malignant neoplasm of thyroid gland 4 Foersterling Yaya. [address] [place] [address], [place] [address], [place], [place], [address], [place]. tel:[phone] [facility], [address], [place], [place], [address] , tel: [phone] [place] Skin neoplasmSecondar y malignant neoplasm of boneMalignant neoplasm of thyroid gland 4 Foersterling Yaya. [address], [facility] [address], [place], [place], [address], [place]. tel:[phone] [facility], [address], [place], [place], [address] , [place] tel:[phone] [place] No Information 4 Foersterling Yaya. [address] [place] [address], [facility] [address], [place], [address], [place]. tel:[phone] OFFICE [id number] TAILED [facility], [address], [place], [address] , [place] tel: [phone] [place] chronic conditions . (chief complaint) Malignant neoplasm of thyroid glandSecondary malignant neoplasm of bonePostprocedur al hypothyroidismBo dy mass index [BMI] 26.0-26.9, adultOther hypoparathyroidi smMajor depressive disorder, recurrent, moderateLumbar radiculopathyOst eoarthritis of left hip, unspecified osteoarthritis typeHyperlipidem ia, unspecified hyperlipidemia typeGastroesopha geal reflux disease, unspecified whether esophagitis presentOveractiv e bladderOverweigh t (BMI 25.0-29.9)Predia betesTobacco useEncounter for immunization 4 Shauna Javier. [address] [place] [address], [place], [place], [address], . tel:[phone] Referring Provider: Yaya dominguez, [address] [place] [address], [place], [address] . tel:[phone] [facility], [address], [place], [place], [address] , [place] tel: [phone] [place] Malignant neoplasm of thyroid gland 4 Shauna Javier. [address] [place] [address], [place], [address], [place]. tel:[phone] OFFICE [id number] [facility], [address], [place], [place], [address] , tel: [phone] [place] chronic conditions . (chief complaint) Body mass index [BMI] 27.0-27.9, adultMalignant neoplasm of thyroid glandSecondary malignant neoplasm of bonePostprocedur al hypothyroidismMa baudilio depressive disorder, recurrent, moderateLumbar radiculopathyOst eoarthritis of left hip, unspecified osteoarthritis typeHyperlipidem ia, unspecified hyperlipidemia typeGastroesopha geal reflux disease, unspecified whether esophagitis presentOveractiv e bladderOverweigh t (BMI 25.0-29.9)Other hypoparathyroidi sm 3 Shauna Javier. [address] [place] [address], [place] [address], [place], [address], [place]. tel:[phone] Referring Provider: Yaya dominguez, [address] [place] [address], [place], [address] . tel:[phone] [facility], [address], [place], [place], [address] , [place] tel: [phone] [place] Left hip painPostprocedur al hypothyroidism 3 Shauna Javier. [address] [place] [address], [address], [place], [place], [address], . tel:[phone] OFFICE DEOCU-JKX-NT [facility], [address], [place], [place], [address] , [place] tel: [phone] [facility] patient to establish care. (chief complaint) Body mass index [BMI] 25.0-25.9, adultHyperlipide niru, unspecified hyperlipidemia typePostprocedur al hypothyroidismOv eractive bladderEncounter for screening for diabetes mellitusMajor depressive disorder, recurrent, moderateMalignan t neoplasm of thyroid glandSecondary malignant neoplasm of boneGastroesopha geal reflux disease, unspecified whether esophagitis presentOther hypoparathyroidi smLumbar radiculopathyOst eoarthritis of left hip, unspecified osteoarthritis typeEncounter for immunization 3 Shauna Javier. [address] [place] [address], [address], [place], [place], [address], . tel:[phone] Referring Provider: Yaya dominguez, [address], [place], [address] . tel:[phone] Family History Family Member Type Diagnosis Age At Onset No Information Immunizations Vaccine Date Status Comments Pneumococcal conjugate PCV20 administered Source: New Immunization Record Fluzone Quad, preservative free, split virus, 0.5mL dosage administered Source: New Immuniza tion Record Pfizer (Bivalent Booster) COVID Vac, 30mcg/0.3mL, 12+ years administered Note: @ [facility] , per EP IC ; Source: Other Registry SHINGRIX (Zoster vaccine recombinant, adjuvanted) administered Note: @ [facility] , p er EPIC ; Source: Other Registry Pfizer (Bivalent Booster) COVID Vac, 30mcg/0.3mL, 12+ years administered Note: @ [facility] , per EP IC ; Source: Other Registry Pfizer (Bivalent Booster) COVID Vac, 30mcg/0.3mL, 12+ years administered Note: @ [facility] , per EP IC ; Source: Other Registry Pfizer matthew-sucrose Bivalent 3 mcg/0.2 mL dosage administered Note: @ [facility] , per EP IC ; Source: Other Registry Pfizer matthew-sucrose Bivalent 3 mcg/0.2 mL dosage administered Note: @ [facility] , per EP IC ; Source: Other Registry Tdap administered Note: @ [facility] , p er EPIC ; Source: Other Registry Payers Payer name Insurance type Covered constitution party ID Magali méndez(s) [employer] [id number] MEDICAID [facility] [id number] [facility] [employer] [id number] MEDICAID [facility] [id number] [facility] [employer] [id number] Social History Type Description Quantity Date Captured Comments Alcohol Use Details Unknown Caffeine Use Details Unknown Tobacco Use Status Smoking Status No Information Sex Female Sexual Orientation Straight or heterosexual Gender Identity Female Chief Complaint And Reason For Visit No Information Reason For Referral Reason For Referral No Information Plan Of Treatment Date Type Action Status Goal Dietary management education , guidance, and counseling completed Goal Dietary management education , guidance, and counseling completed Goal Dietary management education , guidance, and counseling completed Goal Dietary management education , guidance, and counseling completed Referral Ordered: Neri Delgado -Allopathic & Osteopathic Physicians : Otolaryngology (related to Dysphagia, oropharyngeal phase) ordered Referral Referred To: Remi Beckett [address] [place], [place], [phone] Ordered: Referrals: Internal Medicine. Remi Beckett. Evaluation/diagnostic/treatment - Level 3 ordered Referral Ordered: Sandra Limon -Neurology (related to Specific developmental disorder of motor function) ordered Referral Ordered: Marcio Mcintosh -Radiotherapy (related to Malignant neoplasm of thyroid gland) ordered Referral Referred To: Sandra Limon [address] [place], [phone] Ordered: Referrals: Neurology. Sandra Limon. Evaluation/diagnostic/treatment - Level 3 ordered Referral Referred To: Neri Delgado [address] [place], [place], [phone] Ordered: Referrals: Otolaryngology. Neri Delgado. Evaluation/diagnostic/treatment - Level 3 ordered Referral Referred To: Marcio Mcintosh [address] [place], [place], [phone] Ordered: Referrals: Radiotherapy. Marcio Mcintosh. Evaluation/diagnostic/treatment - Level 3 Appointment date/timeframe: 11/24/2023 ordered Referral Referred To: Dr. Neri Delgado Ordered: Referrals: Otolaryngology. Dr. Neri Delgado. Evaluation/diagnostic/treatment - Level 3 Appointment date/timeframe: 08/06/2023 ordered Referral Ordered: SCREENING MAMMOGRAM (CAD) ordered Referral Referred To: Cesar Brooks MD [address]
[facility] [address] [place], [phone] Ordered: Referrals: Orthopedic Surgery. Cesar Brooks MD. Evaluation/diagnostic/treatment - Level 3 ordered Referral Referred To: Yosi Bustamante MD [address]
[place], [phone] Ordered: Referrals: Endocrinology, Diabetes and Metabolism. Yosi Bustamante MD. Evaluation/diagnostic/treatment - Level 3 ordered History Of Present Illness Encounter Date Complaint History Of Prese nt Illness 3 month follow up. 63 y/o female here for follow up on chronic conditions. Metastatic thyroid cancer with metastatic disease to the cervical and thoracic spine. She is followed by medical oncologist, endocrinology, ENT, radiation oncology and neurosurgery. She is currently treated with Lenvima by her oncologist. She needs a refill on celecoxib which she finds helps her neck pain significantly and is well tolerated. She has another PCT scan scheduled this Wednesday. Hypothyroidism: monitored and managed by endocrinology, Dr. Bustamante. She denies symptoms or hypo or hyperthyroidism at this time with her current levothyroxine dosing. Hypoparathyroidism: She denies symptoms of hypocalcemia. She is treated by endocrinology and is taking calcitriol. Major depression: She reports that mood is stable with current treatment from her psychiatrist - Dr. Deng. She is no longer on clonazepam. She remains on paroxetine, bupropion, and trazodone. She denies SI or HI. Malnutrition - see MNA screening form. Weight is down 20 lbs since last visit here on 09/16/2019. She attributes this to her cancer treatments. She does have nausea for which she has prochlorperazine and ondansetron if needed. She is following up with ENT for her swallowing issues. Lumbar radiculopathy: She reports that this is stable with gabapentin. She follows up with pain management - Dr. Echevarria.Osteoarthritis of hip: She reports that she follows up with ortho. Stable at this time.Hyperlipidemia: She denies any myalgias with atorvastatin.GERD: She reports that symptoms are better now with reduced Lenvima dosing. She continues pantoprazole. Overactive bladder and incontinence: She reports that symptoms are stable with oxybutynin.Prediabetes - Patient reports no polyuria, dysuria or excessive thirstTobacco Dependence - Patient relapsed with smoking and is currently smoking 5 cigarettes daily. chronic conditions. 63 y/o femal e here for follow up on chronic conditions. Metastatic thyroid cancer: She denies any enlarged lymph nodes or new neck changes. She is followed by endocrinology, ENT, radiation oncology and neurosurgery. She also sees pain management for her chronic neck pain which remains stable with current therapy. PET scan has been ordered by her manager gas due to rising thyroglobulin level. Hypothyroidism: monitored and managed by endocrinology, Dr. Bustamante. She denies symptoms or hypo or hyperthyroidism at this time with her current levothyroxine dosing. Hypoparathyroidism: She denies symptoms of hypocalcemia. She is treated by endocrinology and is taking calcitriol. Major depression: She reports that mood is stable with current treatment from her psychiatrist - Dr. Deng. She is no longer on clonazepam. She remains on paroxetine, bupropion, and trazodone. She denies SI or HI. Patient has scheduled an appointment with behavioral therapist. Lumbar radiculopathy: She reports that this is stable with gabapentin. She follows up with pain management - Dr. Echevarria.Osteoarthritis of hip: She reports that she follows up with ortho. Stable at this time.Hyperlipidemia: She denies any myalgias with atorvastatin.GERD: She reports overall good control with pantoprazole. She occasionally takes famotidine if needed. Overactive bladder and incontinence: She reports that symptoms are stable with oxybutynin.Pre-Diabetes - Patient reports no polyuria, dysuria or excessive thirstTobacco Dependence - Patient relapsed with smoking and is currently smoking 5 cigarettes daily. Overweight: weight is unchanged since last visit. chronic conditions. A 62 y/o fem amilcar here for follow up on chronic conditions.Metastatic thyroid cancer: She denies any enlarged lymph nodes or new neck changes. She is followed by endocrinology, ENT, radiation oncology and neurosurgery. She also sees pain management for her chronic neck pain which remains stable with current therapy. Hypothyroidism: Managed by endocrinology, Dr. Bustamante. She had repeat thyroid blood work drawn at outside lab earlier today and follows up with Dr. Bustamante on Wednesday. Hypoparathyroidism: She denies symptoms of hypocalcemia. She is treated by endocrinology and is taking calcitriol as directed.Major depression: She reports that mood is stable. She is seeing a new psychiatrist - Dr. Deng. She is no longer on clonazepam. She remains on paroxetine, bupropion, and trazodone. She denies SI or HI.Lumbar radiculopathy: She reports that this is stable with gabapentin. She follows up with pain management - Dr. Echevarria.Osteoarthritis of hip: She reports that she follows up with ortho. Stable at this time.Hyperlipidemia: She denies any myalgias with atorvastatin.GERD: She reports overall good control with pantoprazole. She occasionally takes famotidine if needed. Overactive bladder and incontinence: She reports that symptoms are stable with oxybutynin.Overweight: She has gained 6 lbs since last visit. new patient to establish care. [age] year old female - new patient - here to establish care. She reports that went on disability recently due to her chronic medical condtions.She has an extensive medical history including:Metastatic thyroid cancer - She had thyroidectomy and radioactive iodine treatment in 2020 with subsequent recurrence and metastatic disease to the cervical spine in 2022. This required extensive cervical spine surgery with decompression and fusion and external beam radiation. She is followed by endocrinology, ENT, radiation oncology and neurosurgery. She also sees pain management for her chronic pain. She reports that her neck pain is stable with current therapy.Hypothyroidism - managed by endocrinology - Dr. Bustamante. She is on levothyroxine. She denies symptoms of hyper or hypothyroidism at this time.Hypoparathyroidism - she denies symptoms of hypocalcemia. She is followed by endocrinology.Major depression - she is treated by psychiatrist. Currently stable with paroxetine, bupropion, trazodone and clonazepam from her psychiatrist. She denies SI or HI.Lumbar radiculopathy - she reports that this is stable with gabapentin. She follows up with pain management - Dr. Echevarria.Osteoarthritis of hip - she reports that she follows up with ortho. Stable at this time.Hyperlipidemia - she denies any myalgias with atorvastatin.GERD - she reports good control with pantoprazole. Her GI is Dr. Bennett in [place], [place].Overactive bladder and incontinence - she reports that symptoms are stable with oxybutynin. Functional Status Date Functional Assessmen t No Information Instructions Date Instruction Additional Infor mathew weight is down 20 lb s since her last visit in September. See MNA screening form. Counseled patient on strategies for optimizing caloric and protein intake including protein shake supplements. Check CBC, CMP and thyroid studies today. Related to Mild protein-calorie malnutrition Chronic. Patient fol lows up with orthopedics and pain management. Patient ambulates with a cane. Related to Osteoarthritis of left hip, unspecified osteoarthritis type Continue atorvastatin. Related t o Hyperlipidemia, unspecified hyperlipidemia type Treated by endocrino logy. She is asymptomatic. Continue calcitriol. Check PTH, calcium and vit D. 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 She now has metastatic disease to C2, C4, C5, C7 and T1. She is being treated with Lenvima by her oncologist - dose had to be decreased due to side effects/mucositis which is better now. She has another MRI and PET scan scheduled this Wednesday. Continue to follow up with medical oncology, endocrinology, radiation oncology, ENT and neurosurgery as planned. Check CBC and CMP. Related to Malignant neoplasm of thyroid gland Stable with oxybutynin. Related to Overactive bladder Osseous metastasis t o the C5 and C6 vertebrae with tumor extension into the epidural space and left neural foramina form C4-5 to C6-7 requiring C2-T2 fusion and decompression C3-C7 and resection of extramedullary spine tumor. s/p external beam radiation therapy. There has been progression of disease and she now has metastatic disease to C2, C4, C5, C7 and T1. Currently treated with Lenvima by her oncologist. Continue to follow up with medical oncology, neurosurgery, radiation oncology and endocrinology as planned. Repeat MRI an PET scan scheduled this Wednesday. Check CMP and CBC today. Related to Secondary malignant neoplasm of bone stable with gabapent in. Patient follows up with pain management - Dr. Echevarria. Related to Lumbar radiculopathy Controlled with pant oprazole. Patient occasionally takes famotidine if needed. Related to Gastroesophageal reflux disease, unspecified whether esophagitis present Last A1c was improve d, down to 5.6% on 09/16/23. She is asymptomatic. Continue working on diet and exercise. Recheck A1c today. Related to Prediabetes managed by psychiatr ist - Dr. Deng. Mood is stable with current treatment including paroxetine, bupropion, and trazodone. She denies SI or HI. She is scheduled to meet with behavioral therapist. Continue to follow up with psychiatrist as planned. Related to Major depressive disorder, recurrent, moderate treated by endocrino logy - Dr. Bustamante. Continue levothyroxine as directed by Dr. Bustamante. Will check TSH and free T4 and forward results to him. Related to Postprocedural hypothyroidism Dietary management e ducation, guidance, and counseling Related to Body mass index (BMI) 23.0-23.9, adult adminstered Prevnar 20 vaccine in office today. Related to Encounter for immunization Last A1c was 5.9% on 03/09/23. She is asymptomatic. Continue working on diet and exercise. Check A1c today. Related to Prediabetes Follow up in 3 month sRHM: Counseled patient to get updated COVID vaccine and Shingrix #2 at her pharmacy. Up to date with colonoscopy, repeat in 2026. She is scheduled for mammogram. Reminded her to complete bone density scan.Charting performed by Erin Mcclendon acting as scribe for Yaya Villatoro MD.Koki Villatoro MD: I reviewed the chart and agree with and approve of the documentation. Related to Body mass index [BMI] 26.0-26.9, adult Stable with oxybutynin. Related to Overactive bladder BMI today of 27.07. Dietary counseling provided. Related to Overweight (BMI 25.0-29.9) Controlled with pant oprazole. Patient occasionally takes famotidine if needed. Related to Gastroesophageal reflux disease, unspecified whether esophagitis present Continue atorvastatin. Related t o Hyperlipidemia, unspecified hyperlipidemia type stable with gabapent in. Patient follows up with pain management - Dr. Echevarria. Related to Lumbar radiculopathy Treated by endocrino ion. She is asymptomatic. Continue calcitriol. Calcium level normal on most recent lab work. Related to Other hypoparathyroidism managed by psychiatr ist - Dr. Deng. Mood is stable with current treatment including paroxetine, bupropion, and trazodone. She denies SI or HI. She is scheduled to meet with behavioral therapist. Continue to follow up with psychiatrist as planned. Related to Major depressive disorder, recurrent, moderate Chronic. Patient fol lows up with orthopedics and pain management. Patient ambulates with a cane. Continue working on home exercises and follow up with ortho as planned. 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 MRI ordered by radiation oncologist and PET scan has been ordered by manager gas due to her rising thyroglobulin level. Continue to follow up with endocrinology, radiation oncology, ENT and neurosurgery as planned. 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 s/p external beam radiation therapy. Follow up with neurosurgery, radiation oncology and endocrinology as planned. Thyroglobulin level has been rising. PET scan and MRI have been ordered by endocrinology and radiation oncology respectively. Check CMP and CBC today. Related to Secondary malignant neoplasm of bone monitored and treate d by endocrinology - Dr. Bustamante. Continue levothyroxine as directed by Dr. Bustamante. Related to Postprocedural hypothyroidism Dietary management e ducation, guidance, and counseling Related to Body mass index (BMI) 26.0-26.9, adult Treated by endocrino ion. She is asymptomatic. Continue calcitriol. Calcium level normal on recent lab work. Related to Other hypoparathyroidism BMI today of 27.07. Dietary counseling provided.Follow up in 3-6 monthsRHM: Counsele patient to get updated COVID vaccine and Shingrix #2 at her pharmacy. Up to date with colonoscopy, repeat in 2026. She is scheduled for mammogram. Reminded her to complete bone density scan. Related to Overweight (BMI 25.0-29.9) Continue atorvastatin. Related t o Hyperlipidemia, unspecified hyperlipidemia type Controlled with pant oprazole. Patient occasionally takes famotidine if needed. Related to Gastroesophageal reflux disease, unspecified whether esophagitis present Stable with oxybutynin. Related to Overactive bladder Chronic. Patient fol lows up with orthopedics and pain management. Patient ambulates with a cane. Continue working on home exercises and follow up with ortho as planned. Related to Osteoarthritis of left hip, unspecified osteoarthritis type Patient symptoms are stable with gabapentin. Patient reports that she follows up with pain management - Dr. Echevarria. Related to Lumbar radiculopathy Treated by endocrino logy - Dr. Bustamante. Continue levothyroxine as directed. Repeat thyroid lab work drawn earlier today in advance of her upcoming endocrinology appointment next week. Related to Postprocedural hypothyroidism Patient is now an avina new psychiatrist -Dr. Deng. Mood is stable with current treatment including paroxetine, bupropion, and trazodone from her psychiatrist. She denies SI or HI. Continue to follow up with psychiatrist as planned. Related to Major depressive disorder, recurrent, moderate Charting performed sukhdeep Avalos, acting as scribe for Dr. Yaya Villatoro MD: I reviewed the chart and agree with and approve of the documentation. 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 Continue to follow up with endocrinology, radiation oncology, ENT and neurosurgery as planned. 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 s/p external beam radiation therapy. Follow up with neurosurgery, radiation oncology and endocrinology as planned. Related to Secondary malignant neoplasm of bone Dietary management e ducation, guidance, and counseling Related to Body mass index (BMI) 27.0-27.9, adult Medication management seasonal flu vaccine administered today[facility].Counseled patient to schedule bone density scan.Colonoscopy up to date in 2017 - no polyps per patient.Counseled patient to get second Shingrix vaccine at her pharmacy.Follow up in 3 months. Related to Encounter for immunization counseled patient on diet and exercise. Related to Body mass index [BMI] 25.0-25.9, adult check A1c today. Related to Enco unter for screening for diabetes mellitus stable with oxybutynin. Check UA . Related to Overactive bladder chronic. She follows up with orthopedics and pain management. Continue working on home exercises and follow up with ortho as planned. Related to Osteoarthritis of left hip, unspecified osteoarthritis type controlled with pantoprazole. Re lated to Gastroesophageal reflux disease, unspecified whether esophagitis present treated by psychiatr ist. Mood is stable with current treatment including paroxetine, bupropion, trazodone and clonazepam from her psychiatrist. She denies SI or HI. Continue to follow up with psychiatrist as planned. Related to Major depressive disorder, recurrent, moderate patient reports that her symptoms are stable with gabapentin. She reports that she follows up with pain management - Dr. Echevarria. Related to Lumbar radiculopathy followed by endocrin ology. She is asymptomatic. Will check calcium level today. Related to Other hypoparathyroidism treated by endocrino logy - Dr. Bustamante. Continue levothyroxine. Will check TSH today. Related to Postprocedural hypothyroidism continue atorvastati n. Check FLP today. Related to Hyperlipidemia, unspecified hyperlipidemia type 62 year old female - new patient - here to establish care. 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 Continue to follow up with endocrinology, radiation oncology, ENT and neurosurgery as planned. Related to Malignant neoplasm of thyroid gland osseous metastasis t o the C5 and C6 vertebrae with tumor extension into the epidural space and left neural foramina form C4-5 to C6-7 requiring C2-T2 fusiona nd decompression C3-C7 and resection of extramedullary spine tumor. s/p external beam radiation therapy. She is scheduled for another MRI later this month. Follow up with neurosurgery, radiation oncology and endocrinology as planned. Related to Secondary malignant neoplasm of bone Disease prevention Dietary management e ducation, guidance, and counseling Related to Body mass index (BMI) 25.0-25.9, adult Assessments Type Assessment Date assessment Dysphagia, oropharyngeal phase J Patient Care Teams Name Effective Dates (start - stop) Status Members No Information
--- OUTSIDE RECORDS SUMMARY | 2024-07-23 07:39 | XMS_ITS | Encounter Summary ---
Author Organization [employer] Address [address] [facility] Attn: Epic Prelude ADT YAMEL LARSON [phone] Care Team Providers Care Movie Shot Cameraman Name Role Phone Unavailable Primary Care Provider Unavailabl e Encounter Details Date Type Department Care Team (Latest Contact Info) Description 01/10/2021 Travel Social History Tobacco Use Types Packs/Day [...]
--- OUTSIDE RECORDS SUMMARY | 2024-07-23 07:39 | XMS_ITS | Encounter Summary ---
Author Organization [facility] Address [address] [place] [address] Care Team Providers Care Radial Drill Press Set Up Operator Name Role Phone Unavailable Primary Care Provider Unavailabl e Reason for Visit * Reason Comments Establish Care hospital fu Encounter Details Date Type Department Care Team (Late st Contact Info) Description 01/10/2021 10:30 AM CDT Office Visit [facility] Oncology and Hematology - Abdirashid [address] [facility] [address] [place] [address] Luigi Jane MD [address] [facility] [address] [place] [address] Thyroid cancer (Primary Dx) Social History Tobacco Use Types [...] Mass Index 25.53 01/10/2021 11:09 AM CDT documented in this encounter Progress Notes * Luigi Jane MD - 01/10/2021 12:04 PM CDT HEMATOLOGY / ONCOLOGY PROGRESS NOTE Patient Identification: Name: Brisa Hogan Age: 60 y.o. Sex: female : 1960 DIAGNOSIS Poorly differentiated thyroid carcinoma [id number] stage IVb disease multifocal disease with metastatic carcinoma in 2 of 3 lymph nodes in the neck, treatment approaches inked margin and superior and inferior tracheal margin involved by the tumor. Status post left-sided thyroidectomy done on 2020. CURRENT TREATMENT Plan to have radioactive iodine ablation TREATMENT HISTORY SUBJECTIVE Patient came into the office for follow-up visit after being discharged from the hospital. She is feeling much better and more stronger. Denies any bleeding and bruising. Weight and appetite stable. Review of system Constitutional: denies fevers, sweats, fatigue, malaise, weight loss HEENT: denies sinus congestion, hearing or vision problems Respiratory: denies cough, dyspnea, wheeze Cardiovascular: denies chest pain, exertional chest pressure/discomfort, nausea, syncope, shortnessof breath GI: denies constipation, diarrhea, dsyphagia, reflux symptoms, vomiting, melena : denies dysuria, frequency, incontinence, urgency Integumentary system: no lymphadenopathy, sweats, flushing Musculoskeletal: denies: myalgia, arthralgia Neurological: denies blurry or disturbed vision, numbness/weakness, dizziness Skin: No lumps, bumps or rashes. Objective: Vital signs in last 24 hours: As per nursing note Exam: General appearance: alert, cooperative, no distress, appears stated age Head: normocephalic, without obvious abnormality, atraumatic Eyes: conjunctivae/corneas clear, EOM's intact Ears: normal external ear canals AU Nose: Nares normal. Septum midline. Mucosa normal. No drainage or sinus tenderness Throat: Lips, mucosa, and tongue normal. Teeth and gums normal Neck: supple, symmetrical, trachea midline. Lungs: clear to auscultation bilaterally Heart: regular rate and rhythm, S1, S2 normal, no murmur, click, rub or gallop Abdomen: soft, non-tender. Bowel sounds normal. No masses, No organomegaly Extremities: extremities normal, atraumatic, no cyanosis or edema Skin: Skin color, texture, turgor normal. No rashes or lesions Lymph nodes: No lymphadenopathy Neuro: No obvious focal deficit PATH LABS @IMAGEIMP@ Assessment: Plan: There are no problems to display for this patient. Poorly differentiated thyroid carcinoma [id number] stage IVb disease multifocal disease with metastatic carcinoma in 2 of 3 lymph nodes in the neck, treatment approaches inked margin and superior and inferior tracheal margin involved by the tumor. Status post left-sided thyroidectomy done on 2020. Thyroglobulin level came back 1.8 in the hospital with thyroglobulin antibody less than one. I haverecommended her to follow-up with Dr. Bustamante for radioactive iodine ablation therapy. I will see her back in 3 months with repeat neck ultrasound and labs. Hypercalcemia. Calcium supplement has been discontinued. We will check calcium level today. Hypothyroidism. Patient will continue levothyroxine 112 mcg daily. Last TSH in the hospital was normal. ? TOBACCO COUNSELING She is not a tobacco user. 01/10/2021 Luigi Jane MD documented in this encounter Plan of Treatment Scheduled Orders Name Type Priority Associated Diagnoses Orde r Schedule CBC WITH DIFFERENTIAL Lab Stat Thyroid cancer Expected: 01/10/2021, Expires: 01/10/2022 documented as of this encounter Visit Diagnoses Diagnosis Thyroid cancer- Primary Malignant neoplasm of thyroid gland documented in this encounter
--- OUTSIDE RECORDS SUMMARY | 2024-07-26 08:22 | XMS_ITS | Encounter Summary ---
Author Organization [facility] Address [address] [place] [address] Care Team Providers Care Motorcycle Subassembly Repairer Name Role Phone Joseph Manzanares MD Unavailable Yaya Villatoro MD Primary Care Provider [phone] Encounter Details Date Type Department Care Team [...] Recorded Patient Health Questionnaire-2 Score 0 07/06/2024 [facility] - [...] Care Team (Late st Contact Info) Description 08/02/2024 2:20 PM CVOR NURSE Appointment [facility] [address] [place] [phone] 08/02/2024 3:00 PM CVOR NURSE Office Visit [facility] - Hematology/Oncology [address] [place] [phone] Remi Beckett MD [address] [place] [phone] 08/18/2024 1:45 PM CVOR NURSE Office Visit [facility] - ENT [address] [place] [phone] Neri Delgado MD [address] [place] [phone] 08/30/2024 2:20 PM CVOR NURSE Appointment [facility] [address] [place] [phone] documented as of this encounter Visit Diagnoses Not on filedocumented in this encounter Care Teams Motorcycle Subassembly Repairer Relationship Specialty Start Date End Date Yaya Villatoro MD [address] [place] [phone] PCP - General Internal Medicine 05/04/23 Joseph Manzanares MD [address] [place] [phone] Internal Medicine 04/21/23 documented as of this encounter
--- OUTSIDE RECORDS SUMMARY | 2024-07-26 08:22 | XMS_ITS | Referral Summary ---
Author Organization [facility] Health Address [address] [place] [address] Care Team Providers Care Power Plant Technician Name Role Phone Joseph Manzanares MD Unavailable Yaya Villatoro MD Primary Care Provider [phone] Source Comments [facility],non-owned Affiliates and Associated Physician Practices is amultiple site organization consisting of ambulatory clinics and hospital sitesin [place], [place], [place] and [place]. This disclosure is being madepursuant to the Care Everywhere program and may not contain all information available regarding this patient. Last updated 18.[facility] Encounters Date Type Department Care Team Description 07/13/2024 Telephone [facility] - ENT [address], [place] [address] Andria Aldana RN Concerns 07/12/2024 Travel 07/07/2024 Travel 07/07/2024 11:23 AM PUBLISHING AGENT - 07/07/2024 1:03 PM PUBLISHING AGENT Hospital Encounter [facility] CAT SCAN [address] [place] [address] Remi Beckett MD Discharge Disposition: Home or Self Care 07/07/2024 11:23 AM PUBLISHING AGENT - 07/07/2024 1:03 PM PUBLISHING AGENT Hospital Encounter [facility] CAT SCAN [address] [place] [address] Remi Beckett MD Discharge Disposition: Home or Self Care 07/07/2024 1:04 PM PUBLISHING AGENT - 07/07/2024 11:59 PM PUBLISHING AGENT Hospital Encounter [facility] [address] [place] [address] Remi Beckett MD Discharge Disposition: Home or Self Care 07/07/2024 10:00 AM PUBLISHING AGENT - 07/07/2024 11:22 AM PUBLISHING AGENT Hospital Encounter [facility] NUCLEAR MEDICINE [address] [place] [address] Remi Beckett MD Discharge Disposition: Home or Self Care 07/06/2024 2:00 PM PUBLISHING AGENT Hospital Encounter [facility] Cancer Care - Radiation Oncology [address] [place] [address] Marcio Mcintosh MD 07/06/2024 Travel 07/06/2024 11:56 AM PUBLISHING AGENT - 07/06/2024 1:59 PM PUBLISHING AGENT Hospital Encounter [facility] Imaging Services - MRI [address] [place] [address] Marcio Mcintosh MD Radiation Oncology Discharge Disposition: Home or Self Care 07/06/2024 Refill [facility] - Hematology/Oncolog y [address] [place] [address] Remi Beckett MD Refill Request 07/06/2024 2:00 PM PUBLISHING AGENT Office Visit [facility] Health Cancer Care - Rad/Onc [address] [place] [address] Marcio Mcintosh MD Cancer, metastatic to bone (HCC) (Primary Dx); Metastasis to bone (HCC); Papillary carcinoma of thyroid (HCC); Thyroid cancer (CMS/HCC); Secondary malignant neoplasm of bone (HCC) 07/05/2024 Refill [facility] - Hematology/Oncolog y [address] [place] [address] Remi Beckett MD Refill Request 06/19/2024 Travel 06/15/2024 2:36 PM PUBLISHING AGENT - 06/15/2024 11:59 PM PUBLISHING AGENT Hospital Encounter [facility] CANCER CARE DRAWSTATION [address] [facility] [place] [address] Discharge Disposition: Home or Self Care 06/15/2024 Travel 06/15/2024 2:20 PM PUBLISHING AGENT - 06/15/2024 2:35 PM PUBLISHING AGENT Hospital Encounter [facility] INFUSION CENTER [address] [place] [address] Remi Beckett MD Discharge Disposition: Home or Self Care 06/15/2024 3:00 PM PUBLISHING AGENT Office Visit [facility] - Hematology/Oncolog y [address] [place] [address] Remi Beckett MD Papillary carcinoma of thyroid (HCC) (Primary Dx); Metastasis to bone (HCC); Mucositis due to antineoplastic therapy; Encounter for antineoplastic chemotherapy 06/08/2024 Travel 05/24/2024 Orders Only [facility] - Hematology/Oncolog y [address] [place] [address] Darryl العراقي RN 05/24/2024 Travel from Last [...] HCl (Narcan) 4 MG/0.1ML nasal spray [place] 1 (one) spray into the nose as [...] seen Assessment & Plan (08/09/2020 10:15 AM PUBLISHING AGENT): Inner/outer ear inflammation, cellulitis vs other, reported [...] areas Immunizations Name Administration Dates Next Due COVID [place] BIVALENT 12Y+ 30mcg/0.3ML 10/21/2022 Covid Pfizer primary [...] Recorded Patient Health Questionnaire-2 Score 0 07/06/2024 [facility] - [...] Comments Blood Pressure 129/57 07/06/2024 1:53 PM PUBLISHING AGENT Pulse 85 07/06/2024 1:53 PM PUBLISHING AGENT Temperature 36.4 ??C (97.5 ??F) 07/06/2024 1:53 PM CS T Respiratory Rate 18 07/06/2024 1:53 PM PUBLISHING AGENT Oxygen Saturation 95% 07/06/2024 1:53 PM PUBLISHING AGENT Inhaled Oxygen Concentration - - Weight 49.3 kg (108 lb 11.2 oz) 06/15/2024 3:01 PM PUBLISHING AGENT Height 157.5 cm (5' 2) 03/20/2024 2:39 [...] st Contact Info) Description 08/02/2024 2:20 PM PUBLISHING AGENT Appointment [facility]ION [facility] [address] [place] [address] 08/02/2024 3:00 PM PUBLISHING AGENT Office Visit [facility] - Hematology/Oncology [address] [place] [address] Remi Beckett MD [address] [place] [phone] 08/18/2024 1:45 PM PUBLISHING AGENT Office Visit [facility] - ENT [address] [place] [phone] Neri Delgado MD [address] [place] [address] 08/30/2024 2:20 PM PUBLISHING AGENT Appointment [facility] [address] [place] [address] Medical Devices Implanted Type Area Social Security Specialist Device Identifier Shelf Expiration Date Model / Serial / Lot Savage Bone Void Ca Slf Stimulan Implanted:Qty: 1 on 10/02/2022 by Coy Gómez MD at [facility] N/A: Spine Cervical Biocompstes 04/03/2025 620-005 / / [id number] Description:mixed with 500mg vancomycin powder Screw Set M6 Spne Oc Upr Thor Infnt Implanted:Qty: 11 on 10/02/2022 by Coy Gómez MD at [facility] N/A: Spine Cervical Medtronic Sofamor Danek Spine [id number] / / [place] Spnl 240mm 3.5mm Std Implanted:Qty: 1 on 10/02/2022 by Coy Gómez MD at [facility] N/A: Spine Cervical Medtronic Inc [id number] / / Savage Bone Void 10ml Dbm Grftn Algrf Ptty Implanted:Qty: 1 on 10/02/2022 by Coy Gómez MD at [facility] N/A: Spine Cervical Med[employer]onic Inc [id number] / / Screw 3.5mm 16mm Ma Spne Bone Implanted:Qty: 4 on 10/02/2022 by Coy Gómez MD at [facility] N/A: Spine Cervical Medtronic Inc [id number] / / Screw 3.5mm 20mm Ma Spne Bone Implanted:Qty: 1 on 10/02/2022 by Coy Gómez MD at [facility] N/A: Spine Cervical Med[employer]onic Inc [id number] / / Screw 3.5mm 18mm Ma Spne Bone Implanted:Qty: 1 on 10/02/2022 by Coy Gómez MD at [facility] N/A: Spine Cervical Medtronic Inc [id number] / / Screw 3.5mm 22mm Ma Spne Bone Implanted:Qty: 1 on 10/02/2022 by Coy Gómez MD at [facility] N/A: Spine Cervical Med[employer]onic Inc [id number] / / Screw 4mm 20mm Ma Spne Bone Implanted:Qty: 1 on 10/02/2022 by Coy Gómez MD at [facility] N/A: Spine Cervical Med[employer]onic Inc [id number] / / Screw 4.5mm 28mm Ma Spne Bone Implanted:Qty: 2 on 10/02/2022 by Coy Gómez MD at [facility] N/A: Spine Cervical Med[employer]onic Inc [id number] / / Screw 4.5mm 32mm Ma Spne Infnt Nonster Implanted:Qty: 1 on 10/02/2022 by Coy Gómez MD at [facility] N/A: Spine Cervical Medtronic Inc [id number] / / Procedures Procedure Name Priority Date/Time Associated Diagnosis Comments NM BONE SCAN WHOLE BODY Routine 07/07/2024 1:44 PM PUBLISHING AGENT Cancer, metastatic to bone (HCC) CT NECK SOFT TISSUE W CONT Routine 07/07/2024 12:11 PM PUBLISHING AGENT Papillary carcinoma of thyroid (HCC) CT CHEST ABDOMEN PELVIS W CONT Routine 07/07/2024 12:08 PM PUBLISHING AGENT Papillary carcinoma of thyroid (HCC) MRI CERVICAL SPINE WWO CONT Routine 07/06/2024 1:17 PM PUBLISHING AGENT Metastasis to bone (HCC) Secondary malignant neoplasm of bone (HCC) THYROGLOBULIN BY ANTONIETA RFLXED Routine 06/15/2024 2:41 PM PUBLISHING AGENT Thyroid cancer (HCC) Postoperative hypothyroidism Malignant tumor of thyroid gland (HCC) Cancer, metastatic to bone (HCC) Hypocalcemia Other hypoparathyroidism (HCC) Papillary carcinoma of thyroid (HCC) MAGNESIUM BLOOD STAT 06/15/2024 2:41 PM PUBLISHING AGENT VITAMIN D 25-HYDROXY MARAL 06/15/2024 2:41 PM PUBLISHING AGENT PHOSPHORUS BLOOD Routine 06/15/2024 2:41 PM PUBLISHING AGENT Postoperative hypothyroidism Thyroid cancer (HCC) Hypocalcemia Other hypoparathyroidism (HCC) Malignant tumor of thyroid gland (HCC) Cancer, metastatic to bone (HCC) THYROGLOBULIN REFLEX PROFILE Routine 06/15/2024 2:41 PM PUBLISHING AGENT Thyroid cancer (HCC) Postoperative hypothyroidism Malignant tumor of thyroid gland (HCC) Cancer, metastatic to bone (HCC) Hypocalcemia Other hypoparathyroidism (HCC) Papillary carcinoma of thyroid (HCC) TSH Routine 06/15/2024 2:41 PM PUBLISHING AGENT Thyroid cancer (HCC) Postoperative hypothyroidism Malignant tumor of thyroid gland (HCC) Cancer, metastatic to bone (HCC) Hypocalcemia Other hypoparathyroidism (HCC) Papillary carcinoma of thyroid (HCC) COMPREHENSIVE METABOLIC PANEL STAT 06/15/2024 2:41 PM PUBLISHING AGENT Papillary carcinoma of thyroid (HCC) CBC W AUTO DIFFERENTIAL STAT 06/15/2024 2:41 PM PUBLISHING AGENT Papillary carcinoma of thyroid (HCC) HIV-1 HIV-2 ANTIBODY + HIV P24 AG PANEL Routine 08/14/2022 3:21 PM PUBLISHING AGENT Preventative health care SCAN ONLY HIS OPIOID [...] Bone Scan Whole Body (07/07/2024 1:44 PM PUBLISHING AGENT) Anatomical Region Laterality Modality Abdomen Nuclear Medicine 07/07/2024 10:5 1 AM PUBLISHING AGENT Impressions 07/07/2024 3:49 PM PUBLISHING AGENT IMPRESSION: 1. Intense radiotracer uptake within left pelvis, consistent with severe osteoarthritis seen in the prior PET/CT from 02/25/2024. 2. Moderate radiotracer uptake within lower neck anteriorly which may relate to post treatment changes, follow-up is recommended. > Dictated by Daphne Reis MD (Granulator Operator) 07/07/2024 10:51 AM ITiesha DO have personally reviewed and interpreted this examination/study. > Interpreting Provider: Tiesha Sy DO on 07/07/2024 3:49 PM Narrative 07/07/2024 3:49 PM PUBLISHING AGENT PROCEDURE: ??NM BONE SCAN WHOLE BODY DATE/TIME OF EXAM: ??07/07/2024 10:45 AM CLINICAL INFORMATION: None relevant/not provided if blank. Indication: C79.51: Cancer, metastatic to bone (HCC) HISTORY: A 63-year-old female with metastatic papillary thyroid carcinoma diagnosed in 2020 status post total thyroidectomy, cervical and thoracic spine metastasis status post radiotherapy. Currently on immunotherapy. TECHNIQUE: The patient was injected with 24.9 mCi of nzptuwxgog27-a MDP IV in the right antecubital fossa. [...] hip joint. There are multiple sites of sjdu-ej-lmnodiag increased uptake in the bilateral shoulders and [...] patient was injected with 24.9 mCi of wjypxqxxdu48-s MDPIV in the right antecubital fossa. Anterior [...] hip joint. There are multiple sites of bzuo-ub-ljhexjuc increased uptake in the bilateral shoulders and spine consistent with degenerative disease. IMPRESSION: 1. Intense radiotracer uptake within left pelvis, consistent with severe osteoarthritis seen in the prior PET/CT from 02/25/2024. 2. Moderate radiotracer uptake within lower neck anteriorly which may relate to post treatment changes, follow-up is recommended. > Dictated by Daphne Reis MD (Granulator Operator) 07/07/2024 10:51AM I, Tiesha Sy DO have personally reviewed and interpreted this examination/study. > Interpreting Provider: Tiesha Sy DO on 07/07/2024 3:49 PM Remi Beckett MD NM ORDERABLES * CT Neck Soft Tissue W Cont (07/07/2024 12:11 PM PUBLISHING AGENT) Anatomical Region Laterality Modality Head Computed Tomogra phy 07/09/2024 9:47 AM PUBLISHING AGENT Impressions 07/09/2024 10:08 AM PUBLISHING AGENT IMPRESSION: 1. A 9 x 7 x [...] 07/09/2024 10:08 AM Narrative 07/09/2024 10:08 AM PUBLISHING AGENT PROCEDURE: ??CT NECK SOFT TISSUE W CONT, DATE/TIME OF EXAM: ??07/07/2024 12:12 PM, LOCATION ??[facility] INDICATION: C73: Papillary carcinoma of thyroid (HCC) [...] CONT, DATE/TIME OF EXAM: 2:12 PM, LOCATION [facility] INDICATION: C73: Papillary carcinoma of thyroid (HCC) [...] Abdomen Pelvis W Cont (07/07/2024 12:08 PM PUBLISHING AGENT) Anatomical Region Laterality Modality Chest, Abdomen, Pelvis Computed Tomography 07/07/2024 1:01 PM PUBLISHING AGENT Impressions 07/07/2024 4:00 PM PUBLISHING AGENT Impression: 1.Changes of total thyroidectomy. 2.Minimal enhancement around the gallbladder fundus, this can be seen in adenomyomatosis. Right upper quadrant ultrasound may be obtained for further evaluation if clinically indicated. 3.Partially imaged osseous changes in the lower cervical and upper thoracic spine at site of treated metastasis are better evaluated on MRI from 11/23/2023. > Dictated by [facility] ??(radiology transcriptionist). IVaishali MD have personally reviewed and interpreted this examination/study. > Interpreting Provider: Vaishali Herrera MD on 07/07/2024 4:00 PM Narrative 07/07/2024 4:00 PM PUBLISHING AGENT PROCEDURE: ??CT CHEST ABDOMEN PELVIS W CONT, DATE/TIME OF EXAM: ??07/07/2024 12:09 PM, LOCATION ??[facility] INDICATION: C73: Papillary carcinoma of thyroid (HCC) [...] changes of the left hip joint with wcaw-ef-zexs contact. Partially imaged posterior spinal fusion hardware. Bone changes in the left aspect of partially imaged C7 at the site of treated metastasis. Soft tissues: Normal. Procedure Note Lorena Herrera MD - 07/07/2024 PROCEDURE: CT CHEST ABDOMEN PELVIS W CONT, DATE/TIME OF EXAM: 07/07/2024 12:09 PM, LOCATION [facility] INDICATION: C73: Papillary carcinoma of thyroid (HCC) [...] osteoarthritic changes ofthe left hip joint with dtld-rj-ecno contact. Partially imaged posteriorspinal fusion hardware. Bone [...] from 11/23/2023. > Dictated by Donald NATH, [facility] (radiology transcriptionist). IVaishali MD have personally reviewed and interpreted this examination/study. > Interpreting Provider: Vaishali Herrera MD on 07/07/2024 4:00 PM Remi Beckett MD CT ORDERABLES * MRI Cervical Spine Wwo Cont (07/06/2024 1:17 PM PUBLISHING AGENT) Anatomical Region Laterality Modality Spine Magnetic Resonan ce 07/06/2024 3:40 PM PUBLISHING AGENT Impressions 07/07/2024 6:34 AM PUBLISHING AGENT IMPRESSION: 1. 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 No definite evidence of severe central canal stenosis or intramedullary tumor is seen. IMPRESSION: Normal cervical spine MRI performed without and with IV contrast. > Interpreting Provider: Primitivo Martin MD on 07/07/2024 6:34 AM Narrative 07/07/2024 6:34 AM PUBLISHING AGENT PROCEDURE: ??MRI CERVICAL SPINE WWO CONT DATE/TIME [...] * THYROGLOBULIN REFLEX PROFILE (06/15/2024 2:41 PM PUBLISHING AGENT) Pathologist [facility] Thyroglobulin Antibody <1.0 0.0 - 0.9 IU/mL 06/16/2024 4:09 PM PUBLISHING AGENT [facility] ([facility]) Comment: Thyroglobulin Antibody measured by [facility] [place] Methodology It should be noted that the presence of thyroglobulin antibodies may not be pathogenic nor diagnostic, especially at very low levels. The assay safety assistant has found that four percent of individuals without evidence of thyroid disease or autoimmunity will have positive TgAb levels up to 4 IU/mL. Blood BLOOD SPECIMEN / Unknown Lab Venipuncture / Unknown 06/15/2024 2:41 PM PUBLISHING AGENT 06/15/2024 2:42 PM PUBLISHING AGENT Narrative [facility] ([facility]) - 06/16/2024 4:09 PM PUBLISHING AGENT Performed at: ??01 - [address] ??[id number] Hatch Tender: Oral Melendez PhD, Phone: ??[phone] Yosi Bustamante MD LAB - CHEMISTRY ORD JENISE Performing Organization Address City/[facility]/ZIP Co de Phone Number [facility] ([facility]) [address] [place] [address], [facility] * (ABNORMAL) THYROGLOBULIN BY ANTONIETA RFLXED (06/15/2024 2:41 PM PUBLISHING AGENT) Thyroglobulin by ANTONIETA 100.7(H) 1.5 - 38.5 ng/mL 06/16/2024 4:09 PM PUBLISHING AGENT [facility] ([facility]) Comment: According to the National Academy [...] Lab Venipuncture / Unknown 06/15/2024 2:41 PM PUBLISHING AGENT 06/15/2024 2:42 PM PUBLISHING AGENT Narrative [facility] ([facility]) - 06/16/2024 4:09 PM PUBLISHING AGENT Performed at: ??01 - [facility] ??[id number] Hatch Tender: Oral Melendez PhD, Phone: ??[phone] Yosi Bustamante MD LAB - CHEMISTRY ORD JENISE [facility] ([facility]) [address] [place] [address], [facility] * VITAMIN D 25-HYDROXY (06/15/2024 2:41 PM PUBLISHING AGENT) Vitamin D, 25 Hydroxy 47.3 30.0 - 80.0 ng/mL 06/15/2024 3:38 PM PUBLISHING AGENT [facility] Comment: The recommendations for 25-Hydroxy [...] Lab Venipuncture / Unknown 06/15/2024 2:41 PM PUBLISHING AGENT 06/15/2024 2:47 PM PUBLISHING AGENT Remi Beckett MD LAB - CHEMISTRY ORDERABLES Performing Organization Address [facility]/State/[facility] Co de Phone Number [facility] [address] [place] [address], [facility] [phone] * (ABNORMAL) CBC WITH DIFFERENTIAL (06/15/2024 2:41 PM PUBLISHING AGENT) WBC 9.8 4.0 - 10.7 x10E9/L 06/15/2024 2:55 PM [facility] RBC Count 5.23(H) 3.90 - 5.20 x10E12/L 06/15/2024 2:55 PM [facility] Hemoglobin 16.0(H) 11.9 - 15.8 g/dL 06/15/2024 2:55 PM [facility] Hematocrit 45.9 34.8 - 46.1 % 06/15/2024 2:55 PM [facility] MCV 87.8 80.0 - 98.0 fL 06/15/2024 2:55 PM [facility] MCH 30.6 26.7 - 33.6 pg 06/15/2024 2:55 PM [facility] MCHC 34.9 31.7 - 36.3 g/dL 06/15/2024 2:55 PM [facility] RDW-CV 13.5 11.3 - 14.8 % 06/15/2024 2:55 PM [facility] Platelet Count 285 150 - 420 x10E9/L 06/15/2024 2:55 PM [facility] MPV 9.5 7.8 - 11.4 fL 06/15/2024 2:55 PM [facility] Neutrophil % 68.5 41.0 - 74.0 % 06/15/2024 2:55 PM [facility] Lymphocyte % 20.6 17.0 - 47.0 % 06/15/2024 2:55 PM [facility] Monocyte % 9.0 3.0 - 11.0 % 06/15/2024 2:55 PM [facility] Eosinophil % 1.2 0.0 - 7.0 % 06/15/2024 2:55 PM [facility] Basophil % 0.5 0.0 - 1.6 % 06/15/2024 2:55 PM [facility] Immature Granulocytes % 0.2 0.0 - 1.0 % 06/15/2024 2:55 PM [facility] Neutrophil Absolute 6.69 1.60 - 7.50 x10E9/L 06/15/2024 2:55 PM [facility] Lymphocyte Absolute 2.01 1.00 - 4.40 x10E9/L 06/15/2024 2:55 PM [facility] Monocyte Absolute 0.88 0.15 - 1.00 x10E9/L 06/15/2024 2:55 PM [facility] Eosinophil Absolute 0.12 0.00 - 0.60 x10E9/L 06/15/2024 2:55 PM [facility] Basophil Absolute 0.05 0.00 - 0.13 x10E9/L 06/15/2024 2:55 PM [facility] Blood BLOOD SPECIMEN / Unknown Lab Venipuncture / Unknown 06/15/2024 2:41 PM PUBLISHING AGENT 06/15/2024 2:47 PM PUBLISHING AGENT Remi Beckett MD LAB - HEMATOLOGY ORDERABLES [facility] [address] [place] [address], [facility] [phone] * (ABNORMAL) COMPREHENSIVE METABOLIC PANEL (06/15/2024 2:41 PM PUBLISHING AGENT) BUN 28(H) 7 - 26 mg/dL 06/15/2024 3:20 PM [facility] Creatinine 0.86 0.56 - 0.96 mg/dL 06/15/2024 3:20 PM [facility] Sodium 138 136 - 145 mmol/L 06/15/2024 3:20 PM [facility] Potassium 4.1 3.5 - 4.5 mmol/L 06/15/2024 3:20 PM [facility] Chloride 103 98 - 107 mmol/L 06/15/2024 3:20 PM [facility] CO2 22 22 - 29 mmol/L 06/15/2024 3:20 PM [facility] Glucose 104(H) 70 - 99 mg/dL 06/15/2024 3:20 PM [facility] Calcium 10.2 8.4 - 10.2 mg/dL 06/15/2024 3:20 PM [facility] Protein Total 8.1 6.0 - 8.3 g/dL 06/15/2024 3:20 PM [facility] Albumin 4.0 3.4 - 5.0 g/dL 06/15/2024 3:20 PM [facility] Bilirubin Total 0.3 0.2 - 1.2 mg/dL 06/15/2024 3:20 PM [facility] Alkaline Phosphatase 78 40 - 150 U/L 06/15/2024 3:20 PM [facility] ALT 13 5 - 55 U/L 06/15/2024 3:20 PM [facility] AST 16 5 - 34 U/L 06/15/2024 3:20 PM [facility] Anion Gap 13 6 - 16 06/15/2024 3:20 PM [facility] BUN/Creatinine Ratio 33(H) 7 - 23 06/15/2024 3:20 PM [facility] Osmolality Calculated 292 275 - 295 mOsm/kg 06/15/2024 3:20 PM [facility] Albumin/Globulin Ratio 1.0(L) 1.1 - 2.3 06/15/2024 3:20 PM [facility] eGFR by CKD-EPI 75(L) >=90 mL/min/1.7 3 m2 06/15/2024 3:20 PM [facility] Blood BLOOD SPECIMEN / Unknown Lab Venipuncture / Unknown 06/15/2024 2:41 PM PUBLISHING AGENT 06/15/2024 2:47 PM PUBLISHING AGENT Remi Beckett MD LAB - CHEMISTRY ORDERABLES Performing Organization Address City/[facility]/ZIP Co de Phone Number [address] [address], [facility] [phone] * (ABNORMAL) PHOSPHORUS BLOOD (06/15/2024 2:41 PM PUBLISHING AGENT) Phosphorus 6.5(H) 2.9 - 5.1 mg/dL 06/15/2024 3:20 PM PUBLISHING AGENT [facility] Blood BLOOD SPECIMEN / Unknown Lab Venipuncture / Unknown 06/15/2024 2:41 PM PUBLISHING AGENT 06/15/2024 2:47 PM PUBLISHING AGENT Yosi Bustamante MD LAB - CHEMISTRY ORD ERABLES [address] [address], [facility] [phone] * MAGNESIUM BLOOD (06/15/2024 2:41 PM PUBLISHING AGENT) Magnesium 1.7 1.6 - 2.6 mg/dL 06/15/2024 3:20 PM PUBLISHING AGENT [facility] Blood BLOOD SPECIMEN / Unknown Lab Venipuncture / Unknown 06/15/2024 2:41 PM PUBLISHING AGENT 06/15/2024 2:47 PM PUBLISHING AGENT Remi Beckett MD LAB - CHEMISTRY ORDERABLES Performing Organization Address [facility]/ZIP Co de Phone Number [address] [address], [facility] [phone] * (ABNORMAL) TSH (06/15/2024 2:41 PM PUBLISHING AGENT) [facility] TSH 0.029(L) 0.350 - 4.940 uIU/mL 06/15/2024 3:38 PM PUBLISHING AGENT [facility] Blood BLOOD SPECIMEN / Unknown Lab Venipuncture / Unknown 06/15/2024 2:41 PM PUBLISHING AGENT 06/15/2024 2:47 PM PUBLISHING AGENT Yosi Bustamante MD LAB - CHEMISTRY ORD ERABLES Performing Organization Address [facility] Co de Phone Number [address] [address], [facility] [phone] * HIV-1 HIV-2 ANTIBODY + HIV P24 AG PANEL (New on 11/18) (08/14/2022 3:21 PM PUBLISHING AGENT) [facility] HIV Antigen/Antibod y 1 & 2 Non-reacti ve Non-react oswaldo 08/14/2022 4:18 PM PUBLISHING AGENT [facility] Comment:No Laboratory eviden ce of HIV infection. Blood BLOOD SPECIMEN / Unknown Lab Venipuncture / Unknown 08/14/2022 3:21 PM PUBLISHING AGENT 08/14/2022 3:33 PM PUBLISHING AGENT Adriana Adams DO LAB - CHEMISTRY ORDSrinivas WEAVER Performing Organization Address [facility]/ZIP Co de Phone Number [address] [address], [place] [phone] * SCAN ONLY HIS OPIOID MED AGREEMENT (11/04/2020) Historical Provider SCANNING ONLY * HEPATITIS C AB SCREEN RFLX NAAT QUANT (03/07/2020 3:19 PM CDT) [facility] Hepatitis C Antibody Non-react oswaldo Non-reac tive 03/07/2020 4:28 PM CDT [facility] Comment:Hepatitis C Antibody screen indicates no [...] Marie DO LAB - CHEMISTRY SHANDRAE OWEN Performing Organization Address City/[facility]/ZIP Co de Phone Number [facility] [address] [place] [address], [facility] [phone] * HPV DETECTION HIGH RISK LEE (11/23/2019 10:00 AM CDT) High Risk Human Papilloma Result Not Detected Not Detected 11/28/2019 3:43 PM CDT [facility] High Risk Human Papilloma Interp 11/28/2019 3:43 PM CDT [facility] Comment:High Risk Human Taurus lloma Virus was Not Detected. Pathology/Cytolo gy MISCELLANEOUS SAMPLES / Unknown 11/23/2019 10:00 AM CDT 11/24/2019 11:39 AM CDT Narrative [facility] - 11/28/2019 3:43 PM CDT [...] - MICROB IOLOGY ORDERABLES Performing Organization Address [facility]/ZIP Co de Phone Number [facility] [address] [place] [address], [facility] [phone] from Last 3 Months or Most Recently Relevant to Health Maintenance Advance Directives * Full Code (Latest Code Status on File) Date Activated Date Inactivated Comments 10/02/2022 10:55 AM 10/07/2022 1:12 PM * Full Code Date Activated Date Inactivated Comments 08/19/2020 4:54 PM 08/29/2020 12:30 PM Care Teams Power Plant Technician Relationship Specialty Start Date End Date Yaya Villatoro MD [address] [phone] PCP - General Internal Medicine 05/04/23 Joseph Manzanares MD [address] [place] [phone] Internal Medicine 04/21/23
--- OUTSIDE RECORDS SUMMARY | 2024-07-26 08:22 | XMS_ITS | Encounter Summary ---
Author Organization [facility] Health Address [address] [place] [address] Care Team Providers Care Rail Track Layer Name Role Phone Joseph Manzanares MD Unavailable Yaya Villatoro MD Primary Care Provider [phone]- [phone] Reason for Visit * Reason Comments Refill Request Encounter Details Date Type Department Care Team (Late st Contact Info) Description 07/06/2024 Refill [facility] - Hematology/Oncology [address] [place] [address] Remi Beckett MD [address] [place] [address] Refill Request Social History Tobacco [...] Recorded Patient Health Questionnaire-2 Score 0 07/06/[address] [facility] of Occupat ional Health - Occupational Stress [...] st Contact Info) Description 08/02/2024 2:20 PM ATTENDING AMBULATORY CARE Appointment [facility] [address] [place] [phone] 08/02/2024 3:00 PM ATTENDING AMBULATORY CARE Office Visit [facility] - Hematology/Oncology [address] [place] [phone] Remi Beckett MD [address] [place] [phone] 08/18/2024 1:45 PM ATTENDING AMBULATORY CARE Office Visit [facility] - ENT [address] [place] [phone] Neri Delgado MD [address] [place] [phone] 08/30/2024 2:20 PM ATTENDING AMBULATORY CARE Appointment [facility] [address] [place] [phone] documented as of this encounter Visit Diagnoses Diagnosis Papillary carcinoma of thyroid (HCC) Malignant neoplasm of thyroid gland documented in this encounter Care Teams Rail Track Layer Relationship Specialty Start Date End Date Yaya Villatoro MD [address] [place] [phone] PCP - General Internal Medicine 05/04/23 Joseph Manzanares MD [address] [place] [phone] Internal Medicine 04/21/23 documented as of this encounter
--- OUTSIDE RECORDS SUMMARY | 2024-07-26 08:22 | XMS_ITS | Encounter Summary ---
Author Organization [facility] Health Address [address] [facility] [place] [address] Care Team Providers Care Mill Machinist Name Role Phone Joseph Manzanares MD Unavailable Yaya Villatoro MD Primary Care Provider [phone]- [phone] Reason for Referral * Radiology Services (Routine) - Closed Specialty Diagnoses / Procedures Referred By Contac t Referred To Contact Hematology-Oncology Diagnoses Cancer, metastatic to bone (HCC) Procedures NM Bone Scan Whole Body Remi Beckett MD [address] [place] [address] Referral ID Status Reason Start Date Expiration Date Visits Re quested Visits Authorized [id number] Closed 05/29/2024 05/29/2025 1 1 DENTIAL SALES Reason for Visit * Radiology Services (Routine) - Closed Specialty Diagnoses / Procedures Referred By Contac t Referred To Contact Hematology-Oncology Diagnoses Cancer, metastatic to bone (HCC) Procedures NM Bone Scan Whole Body Remi Beckett MD [address] [place] [address] Referral ID Status Reason Start Date Expiration Date Visits Re quested Visits Authorized [id number] Closed 05/29/2024 05/29/2025 1 1 Encounter Details Date Type Department Care Team (Latest Contact Info) Description 07/07/2024 10:00 AM RESIDENTIAL SALES - 07/07/2024 11:22 AM RESIDENTIAL SALES Hospital Encounter [facility] [address] [place] [address] Remi Beckett MD [address] [place] [address] Discharge Disposition: Home or Self [...] Recorded Patient Health Questionnaire-2 Score 0 07/06/2024 [facility] [place] of Occupat ional Health - Occupational Stress [...] 2 times daily 08/28/2022 calcium 500 mg tabletIndications:[place] stasis to bone (HCC) Take 1 (one) [...] HCl (Narcan) 4 MG/0.1ML nasal spray [place] 1 (one) spray into the nose as [...] vitamin D3 (Cholecalciferol) 10 MCG (400 UNIT) tabletIndications:[place] stasis to bone (HCC) Take 1 (one) tablet by mouth once daily 30 tablet 06/15/2024 documented as of this encounter Plan of Treatment Upcoming Encounters Date Type Department Care Team (Late st Contact Info) Description 08/02/2024 2:20 PM RESIDENTIAL SALES Appointment [facility] [address] [place] [phone] 08/02/2024 3:00 PM RESIDENTIAL SALES Office Visit [facility] - Hematology/Oncology [address] [place] [phone] Remi Beckett MD [address] [place] [phone] 08/18/2024 1:45 PM RESIDENTIAL SALES Office Visit [facility] - ENT [address] [place] [phone] Neri Delgado MD [address] [place] [place] [phone] 08/30/2024 2:20 PM RESIDENTIAL SALES Appointment [facility] [address] [place] [address] documented as of this encounter Procedures Procedure Name Priority Date/Time Associated Diagnosis Comments NM BONE SCAN WHOLE BODY Routine 07/07/2024 1:44 PM RESIDENTIAL SALES Cancer, metastatic to bone (HCC) documented in this encounter Results * NM Bone Scan Whole Body (07/07/2024 1:44 PM RESIDENTIAL SALES) Anatomical Region Laterality Modality Abdomen Nuclear Medicine 07/07/2024 10:5 1 AM RESIDENTIAL SALES Impressions 07/07/2024 3:49 PM RESIDENTIAL SALES IMPRESSION: 1. Intense radiotracer uptake within left pelvis, consistent with severe osteoarthritis seen in the prior PET/CT from 02/25/2024. 2. Moderate radiotracer uptake within lower neck anteriorly which may relate to post treatment changes, follow-up is recommended. > Dictated by Daphne Reis MD (Maintenance Man) 07/07/2024 10:51 AM ITiesha DO have personally reviewed and interpreted this examination/study. > Interpreting Provider: Tiesha Sy DO on 07/07/2024 3:49 PM Narrative 07/07/2024 3:49 PM RESIDENTIAL SALES PROCEDURE: ??NM BONE SCAN WHOLE BODY DATE/TIME [...] hip joint. There are multiple sites of [id number] increased uptake in the bilateral shoulders and [...] patient was injected with 24.9 mCi of -m MDPIV in the right antecubital fossa. Anterior [...] hip joint. There are multiple sites of [id number] increased uptake in the bilateral shoulders and spine consistent with degenerative disease. IMPRESSION: 1. Intense radiotracer uptake within left pelvis, consistent with severe osteoarthritis seen in the prior PET/CT from 02/25/2024. 2. Moderate radiotracer uptake within lower neck anteriorly which may relate to post treatment changes, follow-up is recommended. > Dictated by Dahpne Reis MD (Maintenance Man) 07/07/2024 10:51AM ITiesha DO have personally reviewed [...] at 1130 $ Given 07/07/2024 11:07 AM RESIDENTIAL SALES 24.9 millicuries documented in this encounter Care Teams Mill Machinist Relationship Specialty Start Date End Date Yaya Villatoro MD [address] [facility] [address] [place] [phone] PCP - General Internal Medicine 05/04/23 Joseph Manzanares MD [address] [place] [phone] Internal Medicine 04/21/23 documented as of this encounter
--- OUTSIDE RECORDS SUMMARY | 2024-07-26 08:22 | XMS_ITS | Patient Health Summary ---
Author Organization [facility] Address [address] [place] [address] Care Team Providers Care Bellhop Name Role Phone Joseph Manzanares MD Unavailable Yaya Villatoro MD Primary Care Provider [phone] Note from [facility],non-owned Affiliates and Associated Physician Practices is amultiple site organization consisting of ambulatory clinics and hospital sitesin [place], [place], [place] and [place]. This disclosure is being madepursuant to the Care Everywhere program and may not contain all information available regarding this patient. Last updated 18.[facility] Allergies * Kiwi Extract(Anaphylaxis) [...] naloxone HCl (Narcan) 4 MG/0.1ML nasal spray [place] 1 (one) spray into the nose as [...] Recorded Patient Health Questionnaire-2 Score 0 07/06/2024 [facility] of Occupat ional Health - Occupational Stress [...] Comments Blood Pressure 129/57 07/06/2024 1:53 PM GYM SUPERVISOR Pulse 85 07/06/2024 1:53 PM GYM SUPERVISOR Temperature 36.4 ??C (97.5 ??F) 07/06/2024 1:53 PM CS T Respiratory Rate 18 07/06/2024 1:53 PM GYM SUPERVISOR Oxygen Saturation 95% 07/06/2024 1:53 PM GYM SUPERVISOR Inhaled Oxygen Concentration - - Weight 49.3 kg (108 lb 11.2 oz) 06/15/2024 3:01 PM GYM SUPERVISOR Height 157.5 cm (5' 2) 03/20/2024 2:39 PM CDT Body Mass Index 19.88 03/20/2024 2:39 PM CDT Medical Devices Implanted Type Area Sports Development Officer Device Identifier Shelf Expiration Date Model / Serial / Lot Savage Bone Void Ca Slf Stimulan Implanted:Qty: 1 on 10/02/2022 by Coy Gómez MD at [facility] N/A: Spine Cervical Biocompstes 04/03/2025 620-005 / / [id number] Description:mixed with 500mg vancomycin powder Screw Set M6 Spne Oc Upr Thor Infnt Implanted:Qty: 11 on 10/02/2022 by Coy Gómez MD at [facility] N/A: Spine Cervical Medtronic Sofamor Danek Spine [id number] / / Donovan Spnl 240mm 3.5mm Std Implanted:Qty: 1 on 10/02/2022 by Coy Gómez MD at [facility] N/A: Spine Cervical Medtronic Inc [id number] / / Savage Bone Void 10ml Dbm Grftn Algrf Ptty Implanted:Qty: 1 on 10/02/2022 by Coy Gómez MD at [facility] N/A: Spine Cervical Medtronic Inc [id number] / / Screw 3.5mm 16mm Ma Spne Bone Implanted:Qty: 4 on 10/02/2022 by Coy Gómez MD at [facility] N/A: Spine Cervical Medtronic Inc [id number] / / Screw 3.5mm 20mm Ma Spne Bone Implanted:Qty: 1 on 10/02/2022 by Coy Gómez MD at [facility] N/A: Spine Cervical Medtronic Inc [id number] / / Screw 3.5mm 18mm Ma Spne Bone Implanted:Qty: 1 on 10/02/2022 by Coy Gómez MD at [facility] N/A: Spine Cervical Medtronic Inc [id number] / / Screw 3.5mm 22mm Ma Spne Bone Implanted:Qty: 1 on 10/02/2022 by Coy Gómez MD at [facility] N/A: Spine Cervical Medtronic Inc [id number] / / Screw 4mm 20mm Ma Spne Bone Implanted:Qty: 1 on 10/02/2022 by Coy Gómez MD at [facility] N/A: Spine Cervical Medtronic Inc [id number] / / Screw 4.5mm 28mm Ma Spne Bone Implanted:Qty: 2 on 10/02/2022 by Coy Gómez MD at [facility] N/A: Spine Cervical Medtronic Inc [id number] / / Screw 4.5mm 32mm Ma Spne Infnt Nonster Implanted:Qty: 1 on 10/02/2022 by Coy Gómez MD at [facility] N/A: Spine Cervical Medtronic Inc [id number] / / Procedures * NM BONE SCAN [...] for Papillary carcinoma of thyroid (HCC) * WI LARYNGOSCOPY,FLEX FIBER,DIAGNOSTIC(Performed 02/27/2024) Performed for Thyroid cancer [...] (HCC), Cancer, metastatic to bone (HCC) * WI US SOFT TISS HEAD&NCK R-T IMG(Performed 10/25/2023) [...] Performed for Hypocalcemia, Thyroid cancer (CMS/HCC) * WI LARYNGOSCOPY,FLEX FIBER,DIAGNOSTIC(Performed 08/06/2023) Performed for Hoarseness * [...] * CREATININE - POCT INTERFACED(Performed 03/25/2023) * WI LARYNGOSCOPY,FLEX FIBER,DIAGNOSTIC(Performed 01/29/2023) Performed for S/P cervical [...] cancer (HCC), Hypocalcemia, Other hypoparathyroidism (CMS/HCC) * WI US SOFT TISS HEAD&NCK R-T IMG(Performed 11/02/2022) [...] for Postoperative hypothyroidism, Thyroid cancer (HCC) * WI LARYNGOSCOPY,FLEX FIBER,DIAGNOSTIC(Performed 08/21/2022) Performed for Hoarseness * [...] cancer (HCC), Hypocalcemia, Other hypoparathyroidism (CMS/HCC) * WI US SOFT TISS HEAD&NCK R-T IMG(Performed 07/02/2022) [...] Thyroid cancer (HCC), Hypocalcemia, Other hypoparathyroidism * WI DRAIN/INJECT LARGE JOINT/BURSA(Performed 02/27/2022) Performed for Nontraumatic tear of left rotator cuff, unspecified tear extent * XR SHOULDER LEFT 2VW OR MORE(Performed 02/27/2022) Performed for Left shoulder pain, unspecified chronicity * PATHOLOGY TISSUE(Performed 02/05/2022) Performed for Thyroid cancer (HCC) * DISSECTION NECK(Performed 02/05/2022) Performed for Thyroid cancer (HCC) * ENDOTRACHEAL TUBE NOTE(Performed 02/05/2022) * WI LARYNGOSCOPY,FLEX FIBER,DIAGNOSTIC(Performed 01/28/2022) Performed for Thyroid cancer [...] Thyroid cancer (HCC), Hypocalcemia, Other hypoparathyroidism * WI US SOFT TISS HEAD&NCK R-T IMG(Performed 10/08/2021) [...] Knee pain, unspecified chronicity, unspecified laterality * WI TANGNTL BX SKIN SINGLE LES(Performed 12/09/2020) Performed for Neoplasm of uncertain behavior of skin * DERMATOPATHOLOGY(Performed 12/09/2020) Performed for Neoplasm of uncertain behavior of skin * XR HIP LEFT 2VW OR MORE(Performed 11/19/2020) Performed for Primary osteoarthritis of left hip * XR PELVIS 1 OR 2VW(Performed 11/19/2020) Performed for Primary osteoarthritis of left hip * URINE DRUG SCREEN IMMUNOASSAY(Performed 11/11/2020) Performed for senior care current use of 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 * THYROGLOBULIN [...] FNA(Performed 08/01/2020) Performed for Thyroid nodule * WI LARYNGOSCOPY,FLEX FIBER,DIAGNOSTIC(Performed 07/24/2020) Performed for Hoarseness * [...] Bone Scan Whole Body (07/07/2024 1:44 PM GYM SUPERVISOR) Anatomical Region Laterality Modality Abdomen Nuclear Medicine 07/07/2024 10:5 1 AM GYM SUPERVISOR Impressions 07/07/2024 3:49 PM GYM SUPERVISOR IMPRESSION: 1. Intense radiotracer uptake within left pelvis, consistent with severe osteoarthritis seen in the prior PET/CT from 02/25/2024. 2. Moderate radiotracer uptake within lower neck anteriorly which may relate to post treatment changes, follow-up is recommended. > Dictated by Daphne Reis MD (Underground Electrician) 07/07/2024 10:51 AM ITiesha DO have personally reviewed and interpreted this examination/study. > Interpreting Provider: Tiesha Sy DO on 07/07/2024 3:49 PM Narrative 07/07/2024 3:49 PM GYM SUPERVISOR PROCEDURE: ??NM BONE SCAN WHOLE BODY DATE/TIME OF EXAM: ??07/07/2024 10:45 AM CLINICAL INFORMATION: None relevant/not provided if blank. Indication: C79.51: Cancer, metastatic to bone (HCC) HISTORY: A 63-year-old female with metastatic papillary thyroid carcinoma diagnosed in 2020 status post total thyroidectomy, cervical and thoracic spine metastasis status post radiotherapy. Currently on immunotherapy. TECHNIQUE: The patient was injected with 24.9 mCi of puuhfbkssi30-f MDP IV in the right antecubital fossa. [...] hip joint. There are multiple sites of drrf-ro-mwpgqxmf increased uptake in the bilateral shoulders and [...] patient was injected with 24.9 mCi of rfkxapmkei51-p MDPIV in the right antecubital fossa. Anterior [...] hip joint. There are multiple sites of ihns-mq-xdrpnfue increased uptake in the bilateral shoulders and spine consistent with degenerative disease. IMPRESSION: 1. Intense radiotracer uptake within left pelvis, consistent with severe osteoarthritis seen in the prior PET/CT from 02/25/2024. 2. Moderate radiotracer uptake within lower neck anteriorly which may relate to post treatment changes, follow-up is recommended. > Dictated by Daphne Reis MD (Underground Electrician) 07/07/2024 10:51AM ITiesha DO have personally reviewed and interpreted this examination/study. > Interpreting Provider: Tiesha Sy DO on 07/07/2024 3:49 PM Remi Beckett MD NM ORDERABLES * CT Neck Soft Tissue W Cont (07/07/2024 12:11 PM GYM SUPERVISOR) Only the most recent of3 resultswithin the time period is included. Anatomical Region Laterality Modality Head Computed Tomogra phy 07/09/2024 9:47 AM GYM SUPERVISOR Impressions 07/09/2024 10:08 AM GYM SUPERVISOR IMPRESSION: 1. A 9 x 7 x [...] 07/09/2024 10:08 AM Narrative 07/09/2024 10:08 AM GYM SUPERVISOR PROCEDURE: ??CT NECK SOFT TISSUE W CONT, DATE/TIME OF EXAM: ??07/07/2024 12:12 PM, LOCATION ??[facility] INDICATION: C73: Papillary carcinoma [...] CONT, DATE/TIME OF EXAM: 2:12 PM, LOCATION [facility] INDICATION: C73: Papillary carcinoma [...] Abdomen Pelvis W Cont (07/07/2024 12:08 PM GYM SUPERVISOR) Anatomical Region Laterality Modality Chest, Abdomen, Pelvis Computed Tomography 07/07/2024 1:01 PM GYM SUPERVISOR Impressions 07/07/2024 4:00 PM GYM SUPERVISOR Impression: 1.Changes of total thyroidectomy. 2.Minimal enhancement around the gallbladder fundus, this can be seen in adenomyomatosis. Right upper quadrant ultrasound may be obtained for further evaluation if clinically indicated. 3.Partially imaged osseous changes in the lower cervical and upper thoracic spine at site of treated metastasis are better evaluated on MRI from 11/23/2023. > Dictated by Donald Mayer [facility], [facility] ??(osteopathic resident). IVaishali MD have personally reviewed and interpreted this examination/study. > Interpreting Provider: Vaishali Herrera MD on 07/07/2024 4:00 PM Narrative 07/07/2024 4:00 PM GYM SUPERVISOR PROCEDURE: ??CT CHEST ABDOMEN PELVIS W CONT, DATE/TIME OF EXAM: ??07/07/2024 12:09 PM, LOCATION ??[facility] INDICATION: C73: Papillary carcinoma [...] changes of the left hip joint with thjw-kh-pvav contact. Partially imaged posterior spinal fusion hardware. Bone changes in the left aspect of partially imaged C7 at the site of treated metastasis. Soft tissues: Normal. Procedure Note Lorena Herrera MD - 07/07/2024 PROCEDURE: CT CHEST ABDOMEN PELVIS W CONT, DATE/TIME OF EXAM: 07/07/2024 12:09 PM, LOCATION [facility] INDICATION: C73: Papillary carcinoma [...] osteoarthritic changes ofthe left hip joint with mugr-zj-wjzu contact. Partially imaged posteriorspinal fusion hardware. Bone [...] > Dictated by Donald NATH, [facility] (osteopathic resident). I, ENella Herrera MD have personally reviewed and interpreted this examination/study. > Interpreting Provider: Vaishali Herrera MD on 07/07/2024 4:00 PM [address]i [address]ett MD CT ORDERABLES * MRI Cervical Spine Wwo Cont (07/06/2024 1:17 PM GYM SUPERVISOR) Only the most recent of7 resultswithin the time period is included. Anatomical Region Laterality Modality Spine Magnetic Resonan ce 07/06/2024 3:40 PM GYM SUPERVISOR Impressions 07/07/2024 6:34 AM GYM SUPERVISOR IMPRESSION: 1. 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 No definite evidence of severe central canal stenosis or intramedullary tumor is seen. IMPRESSION: Normal cervical spine MRI performed without and with IV contrast. > Interpreting Provider: Primitivo Martin MD on 07/07/2024 6:34 AM Narrative 07/07/2024 6:34 AM GYM SUPERVISOR PROCEDURE: ??MRI CERVICAL SPINE WWO CONT DATE/TIME [...] * THYROGLOBULIN REFLEX PROFILE (06/15/2024 2:41 PM GYM SUPERVISOR) Only the most recent of23 resultswithin the time period is included. Thyroglobulin Antibody <1.0 0.0 - 0.9 IU/mL 06/16/2024 4:09 PM GYM SUPERVISOR [facility] ([facility]) Comment: Thyroglobulin Antibody measured by Lisbet Marcos Methodology It should be noted that the presence of thyroglobulin antibodies may not be pathogenic nor diagnostic, especially at very low levels. The assay masonry inspector has found that four percent of individuals without evidence of thyroid disease or autoimmunity will have positive TgAb levels up to 4 IU/mL. Blood BLOOD SPECIMEN / Unknown Lab Venipuncture / Unknown 06/15/2024 2:41 PM GYM SUPERVISOR 06/15/2024 2:42 PM GYM SUPERVISOR Narrative [facility] ([facility]) - 06/16/2024 4:09 PM GYM SUPERVISOR Performed at: ??01 - [facility] [address] ??[id number] Laundry Aide: Oral Melendez PhD, Phone: ??[phone] Yosi Bustamante MD LAB - CHEMISTRY ORD ERABLES Performing Organization Address City/[facility]/ZIP Co de Phone Number [facility] ([facility]) [address] [place] [address] * (ABNORMAL) THYROGLOBULIN BY ANTONIETA RFLXED (06/15/2024 2:41 PM GYM SUPERVISOR) Only the most recent of23 resultswithin the time period is included. Thyroglobulin by ANTONIETA 100.7(H) 1.5 - 38.5 ng/mL 06/16/2024 4:09 PM GYM SUPERVISOR [facility] ([facility]) Comment: According to the National Academy [...] Lab Venipuncture / Unknown 06/15/2024 2:41 PM GYM SUPERVISOR 06/15/2024 2:42 PM GYM SUPERVISOR Narrative [facility] ([facility]) - 06/16/2024 4:09 PM GYM SUPERVISOR Performed at: ?? - [facility] [address] ??[id number] Laundry Aide: Oral Melendez PhD, Phone: ??[phone] Yosi Bustamante MD LAB - CHEMISTRY ORD ERABLES [facility] ([facility]) [address] [place] [address] * VITAMIN D 25-HYDROXY (06/15/2024 2:41 PM GYM SUPERVISOR) Only the most recent of10 resultswithin the time period is included. Vitamin D, 25 Hydroxy 47.3 30.0 - 80.0 ng/mL 06/15/2024 3:38 PM GYM SUPERVISOR [facility] Comment: The recommendations for 25-Hydroxy [...] Lab Venipuncture / Unknown 06/15/2024 2:41 PM GYM SUPERVISOR 06/15/2024 2:47 PM GYM SUPERVISOR Remi Beckett MD LAB - CHEMISTRY ORDERABLES Performing Organization Address [facility]/State/ZIP Co de Phone Number [address] [address], [facility] [phone] * (ABNORMAL) CBC WITH DIFFERENTIAL (06/15/2024 2:41 PM GYM SUPERVISOR) Only the most recent of15 resultswithin the time period is included. Pathologist [facility] WBC 9.8 4.0 - 10.7 x10E9/L 06/15/2024 [...] Lab Venipuncture / Unknown 06/15/2024 2:41 PM GYM SUPERVISOR 06/15/2024 2:47 PM GYM SUPERVISOR Remi Beckett MD LAB - HEMATOLOGY ORDERABLES [facility] [address] [place] [address], [facility] [phone] * (ABNORMAL) COMPREHENSIVE METABOLIC PANEL (06/15/2024 2:41 PM GYM SUPERVISOR) Only the most recent of9 resultswithin the [...] Lab Venipuncture / Unknown 06/15/2024 2:41 PM GYM SUPERVISOR 06/15/2024 2:47 PM GYM SUPERVISOR eRmi Beckett MD LAB - CHEMISTRY ORDERABLES [facility] [address] [place] [address], [facility] [phone] * (ABNORMAL) PHOSPHORUS BLOOD (06/15/2024 2:41 PM GYM SUPERVISOR) Only the most recent of20 resultswithin the time period is included. Phosphorus 6.5(H) 2.9 - 5.1 mg/dL 06/15/2024 3:20 PM [facility] Blood BLOOD SPECIMEN / Unknown Lab Venipuncture / Unknown 06/15/2024 2:41 PM GYM SUPERVISOR 06/15/2024 2:47 PM GYM SUPERVISOR Yosi Bustamante MD LAB - CHEMISTRY ORD ERABLES Performing Organization Address [facility]/ZIP Co de Phone Number [address] [address], [facility] [phone] * MAGNESIUM BLOOD (06/15/2024 2:41 PM GYM SUPERVISOR) Only the most recent of18 resultswithin the time period is included. Magnesium 1.7 1.6 - 2.6 mg/dL 06/15/2024 3:20 PM GYM SUPERVISOR [facility] Blood BLOOD SPECIMEN / Unknown Lab Venipuncture / Unknown 06/15/2024 2:41 PM GYM SUPERVISOR 06/15/2024 2:47 PM GYM SUPERVISOR Remi Beckett MD LAB - CHEMISTRY ORDERABLES Performing Organization Address [facility] Co de Phone Number [address] [address], [facility] [phone] * (ABNORMAL) TSH (06/15/2024 2:41 PM GYM SUPERVISOR) Only the most recent of9 resultswithin the time period is included. TSH 0.029(L) 0.350 - 4.940 uIU/mL 06/15/2024 3:38 PM GYM SUPERVISOR [facility] Blood BLOOD SPECIMEN / Unknown Lab Venipuncture / Unknown 06/15/2024 2:41 PM GYM SUPERVISOR 06/15/2024 2:47 PM GYM SUPERVISOR Yosi Bustamante MD LAB - CHEMISTRY ORD ERABLES Performing Organization Address [facility]/ZIP Co de Phone Number [address] [address], [facility] [phone] * WI LARYNGOSCOPY,FLEX FIBER,DIAGNOSTIC (02/27/2024 9:28 AM CDT) Narrative Neri Delgado MD - 02/27/2024 9:28 AM CDT Neri Delgado MD ? 02/27/2024 ??9:32 AM Procedure Note Anesthesia: Lidocaine 2% and Stone-Synephrine 1/2% Endoscopy Type: ??Flexible Cvzuk-Mlrrvwmafjfxyb-Aguyjsytdvts Procedure Details: ??Informed consent was obtained. ??The [...] lung zone. > Dictated by Tex Andrew (Underground Electrician) 02/25/2024 10:45 AM ITiesha DO have personally [...] lung zone. > Dictated by Tex Andrew (Underground Electrician) 02/25/2024 10:45 AM I, Tiesha Sy DO have personally reviewed and interpreted this examination/study. > Interpreting Provider: Tiesha Sy DO on 02/25/2024 4:00 PM Marcio Mcintosh MD NM ORDERABLES * GLUCOSE SCREEN - POCT (IP) [facility] (02/25/2024 10:15 AM CDT) Only the most recent of3 resultswithin the time period is included. Glucose WB/POC 101 70 - 115 mg/dL [facility] Blood BLOOD SPECIMEN / Unknown 02/25/2024 10:15 AM CDT Marcio Mcintosh MD LAB - POINT OF CARE ORDERABLES Performing Organization Address City/State/[facility] Co de Phone Number [facility] [address] [place] [address], [facility] [phone] * MRI BRAIN WWO CONTRAST (11/05/2023 3:45 [...] DATE/TIME OF EXAM: ??11/05/2023 3:45 PM, LOCATION ??[facility] INDICATION: C73: Malignant tumor of thyroid [...] CONTRAST, DATE/TIME OF EXAM: 11/05/2023 3:45PM, LOCATION [facility] INDICATION: C73: Malignant tumor of thyroid [...] B SURFACE ANTIBODY (11/04/2023 11:07 AM CDT) [facility] Hepatitis B Virus Surface Antibody Non-react oswaldo Non-react oswaldo 11/04/2023 12:05 PM CDT [facility] Comment: < 8 mIU/mL Hepatitis B surface Antibody (HBsAb). Nonreactive for HBsAb - individual is considered not immune to Hepatitis B Virus infection. Hepatitis B Surface Antibody Quantitative 0.0 <8.0 mIU/mL 11/04/2023 12:05 PM CDT [facility] Comment: Hepatitis B Surface Antibody Numeric Result Interpretation: ? Nonreactive: ?<8.0 mIU/mL ? Indeterminate: ??8.0 - 12.0 mIU/mL ? Reactive: ?>12.0 mIU/mL ? Blood BLOOD SPECIMEN / Unknown Lab Venipuncture / Unknown 11/04/2023 11:07 AM CDT 11/04/2023 11:13 AM CDT Remi Beckett MD LAB - CHEMISTRY ORDERABLES [facility] [address] [place] [address], [facility] [phone] * HEPATITIS B CORE ANTIBODY TOTAL (11/04/2023 11:07 AM CDT) HBc Antibody Total Non-reacti ve Non-reacti ve 11/04/2023 12:05 PM CDT [facility] Blood BLOOD SPECIMEN / Unknown Lab Venipuncture / Unknown 11/04/2023 11:07 AM CDT 11/04/2023 11:13 AM CDT Remi Beckett MD LAB - CHEMISTRY ORDERABLES Performing Organization Address [facility]/ZIP Co de Phone Number [address] [address], [facility] [phone] * HEPATITIS B SURFACE ANTIGEN W RFLX CONFIRMATION (11/04/2023 11:07 AM CDT) Pathologist [facility] Hepatitis B Virus Surface Antigen Non-reacti ve Non-reacti ve 11/04/2023 12:05 PM CDT [facility] Blood BLOOD SPECIMEN / Unknown Lab Venipuncture / Unknown 11/04/2023 11:07 AM CDT 11/04/2023 11:13 AM CDT Remi Beckett MD LAB - CHEMISTRY ORDERABLES Performing Organization Address [facility] de Phone Number [address] [address], [facility] [phone] * EKG 12-LEAD (11/01/2023 11:15 AM CDT) Only the most recent of2 resultswithin the time period is included. Pathologist [facility] Ventricular Rate 81 BPM [facility] Atrial Rate 81 BPM [facility] P-R Interval 118 ms [facility] QRS Duration ms 86 ms [facility] Q-T Interval ms 398 ms [facility] QTC Calculation (Bezet) 462 ms [facility] Calculated P South Heart 58 degrees [facility] Calculated R South Heart 35 degrees [facility] Calculated T South Heart 44 degrees [facility] Interpretation EKG NORMAL SINUS RHYTHM POSSIBLE LEFT ATRIAL ENLARGEMENT BORDERLINE ECG WHEN COMPARED WITH ECG OF 14-SEP-2022 13:58, NO SIGNIFICANT CHANGE WAS FOUND Confirmed by CLARE ROMERO, JAE ([id number]) on 11/03/2023 8:25:26 PM [facility] 11/01/2023 11:1 5 AM CDT 11/03/2023 8:25 PM T Remi Beckett MD ECG ORDERABLES [facility] * (ABNORMAL) RENAL FUNCTION PANEL (10/25/2023 2:45 PM CDT) Only the most recent of15 resultswithin the time period is included. BUN 10 7 - 26 mg/dL 10/25/2023 3:37 PM [facility] Creatinine 0.81 0.56 - 0.96 mg/dL 10/25/2023 3:37 PM [facility] Sodium 139 136 - 145 mmol/L 10/25/2023 3:37 PM [facility] Potassium 3.8 3.5 - 4.5 mmol/L 10/25/2023 3:37 PM [facility] Chloride 103 98 - 107 mmol/L 10/25/2023 3:37 PM [facility] CO2 27 22 - 29 mmol/L 10/25/2023 3:37 PM [facility] Glucose 88 70 - 115 mg/dL 10/25/2023 3:37 PM [facility] Albumin 3.9 3.4 - 5.0 g/dL 10/25/2023 3:37 PM [facility] Calcium 8.8 8.4 - 10.2 mg/dL 10/25/2023 3:37 PM [facility] Phosphorus 4.7 2.9 - 5.1 mg/dL 10/25/2023 3:37 PM [facility] Anion Gap 9 6 - 16 10/25/2023 3:37 PM [facility] BUN/Creatinine Ratio 12 7 - 23 10/25/2023 3:37 PM [facility] Osmolality Calculated 286 275 - 295 mOsm/kg 10/25/2023 3:37 PM [facility] eGFR by CKD-EPI 81(L) >=90 mL/min/1.7 3 m2 10/25/2023 3:37 PM CDT [facility] Blood BLOOD SPECIMEN / Unknown Lab Venipuncture / Unknown 10/25/2023 2:45 PM CDT 10/25/2023 3:03 PM CDT Yosi Bustamante MD LAB - CHEMISTRY ORD ERABLES Performing Organization Address [facility]/ZIP Co de Phone Number [facility] [address] [place] [address], [facility] [phone] * [place] US SOFT TISS HEAD&NCK R-T IMG (10/25/2023 [...] Aria Session Summary (10/22/2023 11:18 AM CDT) [facility] Course ID [id number] ine RAD ONC TREATMENT Course First Treatment [...] resultswithin the time period is included. Pathologist [facility] TSH <0.010(L) 0.350 - 4.940 uIU/mL 10/21/2023 3:49 PM CDT [facility] Blood BLOOD SPECIMEN / Unknown Lab Venipuncture / Unknown 10/21/2023 2:50 PM CDT 10/21/2023 3:04 PM CDT Remi Beckett MD LAB - CHEMISTRY ORDERABLES [address] [address], [facility] [phone] * T4 FREE (10/21/2023 2:50 PM CDT) Only the most recent of14 resultswithin the time period is included. T4 Free 1.4 0.7 - 1.5 ng/dL 10/21/2023 4:22 PM CDT [facility] Blood BLOOD SPECIMEN / Unknown Lab Venipuncture / Unknown 10/21/2023 2:50 PM CDT 10/21/2023 3:04 PM CDT Remi Beckett MD LAB - CHEMISTRY ORDERABLES Performing Organization Address City/[facility]/ZIP Co de Phone Number [address] [address], [place] [phone] * [facility] BLOOD DRAW (10/21/2023 2:49 PM CDT) Pathologist [facility] Blood Sent to [facility] 10/22/2023 9:00 AM CDT [facility] ([facility]) Comment:Collection and sendo ut completed. Blood BLOOD SPECIMEN / Unknown Lab Venipuncture / Unknown 10/21/2023 2:49 PM CDT 10/22/2023 8:33 AM CDT Remi Beckett MD LAB - HEMATOLOGY ORDERABLES [facility] ([facility]) [address], [address] [place] [address] * [facility] XF (10/21/2023 2:37 PM CDT) Pathology/Cytolo gy MISCELLANEOUS SAMPLES / Unknown 10/21/2023 2:37 PM CDT 10/21/2023 2:37 PM CDT Remi Beckett MD LAB - PATHOLOGY/ CYTOLOGY ORDERABLES Performing Organization Address [facility] Co de Phone Number [facility] [address], [address] [place] [address] * [facility] XT (10/21/2023 2:37 PM CDT) Pathology/Cytolo gy MISCELLANEOUS SAMPLES / Unknown 10/21/2023 2:37 PM CDT 10/21/2023 2:37 PM CDT Remi Beckett MD LAB - PATHOLOGY/ CYTOLOGY ORDERABLES Performing Organization Address [facility] de Phone Number [facility] [address], [address] [place] [address] * Rad Onc Aria Session Summary (10/21/2023 11:19 AM CDT) Course ID [id number] ine RAD ONC TREATMENT Course First Treatment [...] RADIATION ONCOLOGY O RDERABLES Performing Organization Address [facility] Co de Phone Number RAD ONC TREATMENT * Rad Onc Aria Session Summary (10/20/2023 11:11 AM CDT) Course ID [id number] ine RAD ONC TREATMENT Course First Treatment [...] RADIATION ONCOLOGY O RDERABLES Performing Organization Address [facility] Co de Phone Number RAD ONC TREATMENT * Rad Onc Aria Session Summary (10/19/2023 11:25 AM CDT) Course ID [id number] ine RAD ONC TREATMENT Course First Treatment [...] RADIATION ONCOLOGY O RDERABLES Performing Organization Address [facility] Co de Phone Number RAD ONC TREATMENT * Rad Onc Aria Session Summary (10/18/2023 1:44 PM CDT) Course ID [id number] ine RAD ONC TREATMENT Course First Treatment [...] ONCOLOGY O RDERABLES RAD ONC TREATMENT * WI LARYNGOSCOPY,FLEX FIBER,DIAGNOSTIC (08/06/2023 3:02 PM GYM SUPERVISOR) Narrative Evelyn Ugadle MD - 08/06/2023 3:02 PM GYM SUPERVISOR Evelyn Ugalde MD ? 08/06/2023 ??4:01 PM Procedure Note Anesthesia: Lidocaine 2% and Stone-Synephrine 1/2% Endoscopy Type: ??Flexible Mpses-Icjvqpkrwasdoa-Nrgygyhunptz Procedure Details: ??Informed consent was obtained. ??The [...] - 1.30 mg/dL 03/25/2023 12:27 PM CDT [facility] eGFR 73(L) >90 mL/min/1.7 3 m2 03/25/2023 12:27 PM CDT [facility] Blood BLOOD SPECIMEN / Unknown 03/25/2023 12:24 PM CDT 03/25/2023 12:26 PM CDT Marcio Mcintosh MD LAB - POINT OF CARE ORDERABLES Performing Organization Address City/State/[facility] de Phone Number [facility] [address] [place] [address], [facility] [phone] * WI LARYNGOSCOPY,FLEX FIBER,DIAGNOSTIC (01/29/2023 4:13 PM CDT) Narrative Neri Delgado MD - 01/29/2023 4:13 PM CDT Neri Delgado MD ? 01/30/2023 ??7:14 AM Procedure Note Anesthesia: Lidocaine 2% and Stone-Synephrine 1/2% Endoscopy Type: ??Flexible Saota-Cvqfqvseozksmy-Qwnrvmrnbega Procedure Details: ??Informed consent was obtained. ??The [...] Attending staff: Dr. Gerard Kay MD., Ph.D. Pediatric Medical Assistant: MD Ishaan. The procedure and risks were [...] Nicotine <5 ng/mL 11/06/2022 12:39 AM CDT [facility] ([facility]) Comment: INTERPRETIVE INFORMATION: Nicotine and Metabolites, [...] developed and its performance characteristics determined by [facility]. It has not been cleared or approved by the US Food and Drug Administration. This test was performed in a CLIA certified laboratory and is intended for clinical purposes. Performed By: [facility] [address] [place] [id number] Business Performance Analyst: Devaughn Dacosta MD, PhD Cotinine 128 ng/mL 11/06/2022 12:39 AM CDT [facility] ([facility]) Comment: Consistent with use of a nicotine-containing product within 1 week of specimen collection. ??Cotinine is the major metabolite of nicotine. ??The half-life of cotinine is approximately 16 hours. Blood BLOOD SPECIMEN / Unknown Lab Venipuncture / Unknown 11/02/2022 12:46 PM CDT 11/02/2022 1:20 PM CDT Yosi Bustamante MD LAB - CHEMISTRY ORD ERABLES [facility] ([facility]) [address] [place] [address], [facility] * WI US SOFT TISS HEAD&NCK R-T IMG (11/02/2022 [...] 7 - 26 mg/dL 10/07/2022 12:43 AM [facility] Creatinine 0.56 0.56 - 0.96 mg/dL 10/07/2022 12:43 AM [facility] Sodium 143 136 - 145 mmol/L 10/07/2022 12:43 AM [facility] Potassium 3.8 3.5 - 4.5 mmol/L 10/07/2022 12:43 AM [facility] Chloride 106 98 - 107 mmol/L 10/07/2022 12:43 AM [facility] CO2 25 22 - 29 mmol/L 10/07/2022 12:43 AM CDT [facility] Glucose 92 70 - 115 mg/dL 10/07/2022 12:43 AM CDT [facility] Calcium 9.0 8.4 - 10.2 mg/dL 10/07/2022 12:43 AM T [facility] Anion Gap 16 8 - 18 10/07/2022 12:43 AM T [facility] BUN/Creatinine Ratio 27(H) 7 - 23 10/07/2022 12:43 AM T [facility] Osmolality Calculated 296 270 - 300 mOsm/kg 10/07/2022 12:43 AM [facility] eGFR by CKD-EPI >90 >=90 mL/min/1.7 3 m2 10/07/2022 12:43 AM [facility] Blood BLOOD SPECIMEN / Unknown Lab Venipuncture / Unknown 10/07/2022 12:12 AM CDT 10/07/2022 12:19 AM CDT Coy Gómez MD LAB - CHEMISTRY [facility] Organization Address City/State/ZIP Co de Phone Number [facility] [address] [place] [address], [facility] [phone] * PREPARE (CROSSMATCH) RBC UNIT(S), 2 Units (10/06/2022 1:17 AM CDT) Only the most recent of2 resultswithin the time period is included. Unit Description AS1 LR PRBC [facility] Unit ABO B [facility] Unit Rh POS [facility] Product Number R02 [facility] Unit Donor # [id number] [facility] Unit Status released [facility] Product Code [id number] [facility] Blood Type Barcode 7300 [facility] Expiration Date [id number] [facility] Unit Description -1 LR PRBC LV [facility] Unit ABO B [facility] Unit Rh POS [facility] Product Number R52 [facility] Unit Donor # [id number] [facility] Unit Status released [facility] Product Code [id number] [facility] Blood Type Barcode 7300 [facility] Expiration Date [id number] [facility] Blood Bank BLOOD SPECIMEN / Unknown 10/02/2022 6:49 AM CDT Coy Gómez MD LAB - BLOOD BANK ORD ERABLES [facility] [address] [place] [address], [facility] [phone] * XR THORACIC SPINE 3VW (10/04/2022 9:40 AM CDT) Anatomical Region Laterality Modality Spine Radiographic Antonieta ging 10/04/2022 9:44 AM CDT Impressions 10/04/2022 12:48 PM CDT IMPRESSION: 1.Postsurgical changes from posterior C2-T2 fusion and C3-C7 decompression are present with paired rods and interpedicular screws. The surgical hardware appears intact. 2.No evidence of cervical spine fracture or malalignment. Report dictated by Kalin Kumar M.D. (osteopathic resident) I, Roger House DO have personally reviewed and interpreted this examination/study. > Interpreting Provider: Roger House DO on 10/04/2022 12:48 PM Narrative 10/04/2022 12:48 PM CDT PROCEDURE: ??XR CERVICAL SPINE 2 OR 3VW, XR THORACIC SPINE 3VW, DATE/TIME OF EXAM: ??10/04/2022 9:41 AM, LOCATION ??[facility] INDICATION: C79.51: Cancer, metastatic to bone (CMS/HCC) ADDITIONAL CLINICAL INFORMATION: Ordering Provider Reason For Exam: ??post op (accession [id number]), s/p PSIF (accession [id number]) COMPARISON: None. TECHNIQUE: AP and lateral views [...] 3VW, DATE/TIMEOF EXAM: 10/04/2022 9:41 AM, LOCATION [facility] INDICATION: C79.51: Cancer, metastatic to bone (CMS/HCC) ADDITIONAL CLINICAL INFORMATION: Ordering Provider Reason For Exam: post op (accession [id number]), s/pPSIF (accession [id number]) COMPARISON: None. TECHNIQUE: AP and lateral views [...] 1.Postsurgical changes from posterior C2-T2 fusion and C3-C4apoziaxopljlu are present with paired rods and interpedicular screws. The surgical hardware appears intact. 2.No evidence of cervical spine fracture or malalignment. Report dictated by Kalin Kumar M.D. (osteopathic resident) Roger Mckeon DO have personally reviewed and [...] malalignment. Report dictated by Kalin Kumar M.D. (osteopathic resident) IRoger DO have personally reviewed and interpreted this examination/study. > Interpreting Provider: Roger House DO on 10/04/2022 12:48 PM Narrative 10/04/2022 12:48 PM CDT PROCEDURE: ??XR CERVICAL SPINE 2 OR 3VW, XR THORACIC SPINE 3VW, DATE/TIME OF EXAM: ??10/04/2022 9:41 AM, LOCATION ??[facility] INDICATION: C79.51: Cancer, metastatic to bone (CMS/HCC) ADDITIONAL CLINICAL INFORMATION: Ordering Provider Reason For Exam: ??post op (accession [id number]), s/p PSIF (accession [id number]) COMPARISON: None. TECHNIQUE: AP and lateral views [...] 3VW, DATE/TIMEOF EXAM: 10/04/2022 9:41 AM, LOCATION [facility] INDICATION: C79.51: Cancer, metastatic to bone (CMS/HCC) ADDITIONAL CLINICAL INFORMATION: Ordering Provider Reason For Exam: post op (accession [id number]), s/pPSIF (accession [id number]) COMPARISON: None. TECHNIQUE: AP and lateral views [...] 1.Postsurgical changes from posterior C2-T2 fusion and C3-R4uuvsehfjmglcc are present with paired rods and interpedicular screws. The surgical hardware appears intact. 2.No evidence of cervical spine fracture or malalignment. Report dictated by Kalin Kumar M.D. (osteopathic resident) I, Roger House DO have personally reviewed and interpreted this examination/study. > Interpreting Provider: Roger House DO on 10/04/2022 12:48 PM Coy Gómez MD DIAGNOSTIC IMAGING O RDERABLES * PT-INR [facility] (10/02/2022 12:59 PM CDT) Only the most recent of2 resultswithin the time period is included. PT 12.9 12.1 - 14.8 Seconds 10/02/2022 1:54 PM CDT [facility] INR 1.0 See Comment 10/02/2022 1:54 PM CDT [facility] Comment:The suggested therap eutic range for standard coumadin (warfarin) therapy is an INR of 2.0-3.0. For high-risk patients (Mechanical Mitral Valve Prosthesis, etc.), the suggested prophylactic therapeutic range is an INR of 2.5-3.5. Blood BLOOD SPECIMEN / Unknown Venipuncture / Unknown 10/02/2022 12:59 PM CDT 10/02/2022 1:27 PM CDT Coy Gómez MD LAB - COAGULATION OR DERABLES Performing Organization Address [facility]/ZIP Co de Phone Number [facility] [address] [place] [address], [facility] [phone] * [place] OARM SURGERY (10/02/2022 11:17 AM CDT) Narrative [facility] - 10/02/2022 11:48 AM CDT Fluoroscopy was used for this exam in the OR. Please see the Operative report. Coy Gómez MD FLUOROSCOPY ORDERABL ES Performing Organization Address [facility] Co de Phone Number [facility] * [place] RONNY SURGERY (10/02/2022 11:17 AM CDT) Narrative [facility] - 10/02/2022 11:18 AM CDT Fluoroscopy was used for this exam in the OR. Please see the Operative report. Coy Gómez MD FLUOROSCOPY ORDERABL ES Performing Organization Address [facility]/ZIP Co de Phone Number [facility] * PATHOLOGY TISSUE (10/02/2022 9:59 AM CDT) Only the most recent of3 resultswithin the time period is included. Case Report Surgical Pathology Report ? Case: [id number] ? Authorizing Provider: ??Coy Gómez MD ?Collected: ? 10/02/2022 09:59 AM ? Ordering Location: ? [facility] ?Received: ?10/02/2022 11:08 AM ? Pathologist: ? Edin Scales MD ? Specimens: ?? A) - Spinal Cord, extradural tumor ? B) - Spinal Cord, extradural tumor ? 10/06/2022 1:13 PM [facility] Final Diagnosis Spinal cord, extradural tumor, resection (A): - Metastatic carcinoma. - See comment. Spinal cord, extradural tumor, resection (B): - Metastatic carcinoma. - See comment. Comment: The histopathological and immunohistochemical features of this tumor, along with the patient's history, are compatible with a metastatic thyroid carcinoma. 10/06/2022 1:13 PM [facility] Microscopic Description and Comment [...] negative for CK20 immunostaining. 10/06/2022 1:13 PM [facility] Clinical History 10/06/2022 1:13 PM [facility] Gross Description The requisition [...] cassette labeled B1. /ML 10/06/2022 1:13 PM [facility] Disclaimer The performance characteristics of all immunohistochemical and indirect immunofluorescence stains (if any) cited in this report were determined by the Histopathology Laboratory of [facility]. Some of these tests were developed [...] the attending (teaching) pathologist. 10/06/2022 1:13 PM [facility] Embedded Images 10/06/2022 1:13 PM [facility] Biopsy, Excision ENTIRE SPINAL CORD / Unknown 10/02/2022 9:59 AM CDT 10/02/2022 11:08 AM CDT Comment:Pre-op diagnosis: spine tumor Biopsy, Excision ENTIRE SPINAL CORD / Unknown 10/02/2022 10:42 AM CDT 10/02/2022 2:56 PM CDT Comment:Pre-op diagnosis: spine tumor Coy Gómez MD LAB - PATHOLOGY/CYTO LOGY ORDERABLES [facility] [address] [phone] * ETT LINE PERFORMABLE (10/02/2022 8:28 AM CDT) Narrative Ioana Reddy MD - 10/02/2022 8:28 AM CDT Ioana Reddy MD ? 10/02/2022 ??8:29 AM Endotracheal Tube Placement: ? Patient Location: OR. Intubation Event Date/Time: ??10/02/2022 7:35 AM Procedure: intubation ([id number]). Procedure Section: ?? Induction: standard IV Patient [...] Note Patient Location: OR. Procedure: Arterial Line ([id number]). Procedure Section ?? Indications: continuous blood pressure [...] included. Antibody Screen NEG 7:31 AM CDT [facility] ABO Rh B POS 10/02/2022 7:31 AM CDT [facility] Blood Bank BLOOD SPECIMEN / Unknown Venipuncture / Unknown 10/02/2022 6:41 AM CDT 10/02/2022 6:49 AM CDT Coy Gómez MD LAB - BLOOD BANK ORD ERABLES [facility] [address] [place] [address], [facility] [phone] * CT CUSTOM SHOULDER LT REPLACEMENT (09/25/2022 11:47 AM CDT) Anatomical Region Laterality Modality Upper Extremity Computed Tomogra phy 09/25/2022 2:53 PM CDT Narrative 09/26/2022 10:35 AM CDT PROCEDURE: ??CT CUSTOM SHOULDER LT REPLACEMENT, DATE/TIME OF EXAM: 09/25/2022 11:48 AM, LOCATION ??[facility] INDICATION: M12.812: Rotator cuff arthropathy of [...] shoulder. Report dictated by Wayne Carbajal MD (osteopathic resident) Zi Mckeon MD have personally reviewed and interpreted this examination/study. > Interpreting Provider: Zi Vee MD on 09/26/2022 10:35 AM Procedure Note Zi Vee MD - 09/26/2022 PROCEDURE: CT CUSTOM SHOULDER LT REPLACEMENT, DATE/TIME OF EXAM: 09/25/2022 11:48 AM, LOCATION [facility] INDICATION: M12.812: Rotator cuff arthropathy of [...] shoulder. Report dictated by Wayne Carbajal MD (osteopathic resident) Zi Mckeon MD have personally reviewed and [...] RADIATION ONCOLOGY O RDERABLES Performing Organization Address [facility] Co de Phone Number RAD ONC TREATMENT [...] RADIATION ONCOLOGY O RDERABLES Performing Organization Address [facility] de Phone Number RAD ONC TREATMENT * PTT [facility] (09/14/2022 3:13 PM CDT) Pathologist [facility] APTT 27.8 23.0 - 38.4 Seconds 09/14/2022 4:22 PM CDT [facility] Comment:Suggested therapeuti c range for full dose I.V. unfractionated heparin therapy for venous thromboembolism is 71 to 109 seconds. Blood BLOOD SPECIMEN / Unknown Lab Venipuncture / Unknown 09/14/2022 3:13 PM CDT 09/14/2022 4:00 PM CDT Coy Gómez MD LAB - COAGULATION OR DERABLES [facility] [address] [place] [address], [facility] [phone] * XR CHEST 2VW (09/14/2022 3:08 PM CDT) Anatomical Region Laterality Modality Chest Radiographic Antonieta ging 09/14/2022 3:09 PM CDT Narrative 09/14/2022 3:54 PM CDT PROCEDURE: ??XR CHEST 2VW, DATE/TIME OF EXAM: ??09/14/2022 3:09 PM, LOCATION [facility] INDICATION: Z01.818: Pre-op testing ADDITIONAL CLINICAL INFORMATION: COMPARISON: No prior study is available for comparison. FINDINGS/IMPRESSION: Calcified granuloma of right upper lung field is seen. There is no focal consolidation, pleural effusion, or pneumothorax. The cardiomediastinal silhouette is normal. The visible bony thorax is intact. > Dictated by Wayne Carbajal MD (osteopathic resident). Zi Mckeon MD have personally reviewed and interpreted this examination/study. > Interpreting Provider: Zi Vee MD on 09/14/2022 3:54 PM Procedure Note Zi Vee MD - 09/14/2022 PROCEDURE: XR CHEST 2VW, DATE/TIME OF EXAM: 09/14/2022 3:09 PM, LOCATION [facility] INDICATION: Z01.818: Pre-op testing ADDITIONAL CLINICAL INFORMATION: COMPARISON: No prior study is available for comparison. FINDINGS/IMPRESSION: Calcified granuloma of right upper lung field is seen. There is no focal consolidation, pleural effusion, or pneumothorax. The cardiomediastinal silhouette is normal. The visible bony thorax is intact. > Dictated by Wayne Carbajal MD (osteopathic resident). Zi Mckeon MD have personally reviewed and interpreted this examination/study. > Interpreting Provider: Zi Vee MD on 33:54 PM Coy Gómez MD DIAGNOSTIC IMAGING O RDERABLES * WI LARYNGOSCOPY,FLEX FIBER,DIAGNOSTIC (08/21/2022 2:38 PM GYM SUPERVISOR) Narrative Neri Delgado MD - 08/21/2022 2:38 PM GYM SUPERVISOR Fabian Flores MD ? 08/22/2022 10:25 AM Procedure Note Endoscopy Type: ??Laryngoscopy without stroboscopy [id number] Endoscope: Flexible 4mm Scope Anesthesia: Lidocaine 2% [...] TUMOR LOCAL SPECT CT (08/19/2022 3:24 PM GYM SUPERVISOR) Anatomical Region Laterality Modality Nuclear Medicine 08/19/2022 3:55 PM GYM SUPERVISOR Impressions 08/19/2022 4:38 PM GYM SUPERVISOR Impression: Focal uptake in anteriorly in the left aspect of the mid cervical spine, suggestive of metastatic disease. Further evaluation with MRI cervical spine is recommended to better evaluate the site of the recurrence and the proximity to the spinal cord. Results discussed with Dr. Bustamante by Dr. Sy on 08/19/2022 at 3:35 PM. > Dictated by Donald Mayer MD (Underground Electrician) 08/19/2022 4:15 PM Tiesha Mckeon DO have personally reviewed and interpreted this examination/study. > Interpreting Provider: Tiesha Sy DO on 08/19/2022 4:38 PM Narrative 08/19/2022 4:38 PM GYM SUPERVISOR PROCEDURE: ??NM THYROID WHOLE BODY SCAN, NM TUMOR LOCAL SPECT CT, DATE/TIME OF EXAM: ??08/19/2022 3:24 PM, LOCATION ??[facility] INDICATION: E89.0: Postoperative hypothyroidism [...] CT,DATE/TIME OF EXAM: 08/19/2022 3:24 PM, LOCATION [facility] INDICATION: E89.0: Postoperative hypothyroidism [...] PM. > Dictated by Donald Mayer MD (Underground Electrician) 08/19/2022 4:15 PM ITiesha DO have personally reviewed and interpreted this examination/study. > Interpreting Provider: Tiesha Sy DO on 08/19/2022 4:38 PM Yosi Bustamante MD NM ORDERABLES * NM THYROID WHOLE BODY SCAN (08/19/2022 3:24 PM GYM SUPERVISOR) Only the most recent of2 resultswithin the time period is included. Anatomical Region Laterality Modality Chest Nuclear Medicine 08/19/2022 3:55 PM GYM SUPERVISOR Impressions 08/19/2022 4:38 PM GYM SUPERVISOR Impression: Focal uptake in anteriorly in the left aspect of the mid cervical spine, suggestive of metastatic disease. Further evaluation with MRI cervical spine is recommended to better evaluate the site of the recurrence and the proximity to the spinal cord. Results discussed with Dr. Bustamante by Dr. Sy on 08/19/2022 at 3:35 PM. > Dictated by Donald Mayer MD (Underground Electrician) 08/19/2022 4:15 PM Tiesha Mckeon DO have personally reviewed and interpreted this examination/study. > Interpreting Provider: Tiesha Sy DO on 08/19/2022 4:38 PM Narrative 08/19/2022 4:38 PM GYM SUPERVISOR PROCEDURE: ??NM THYROID WHOLE BODY SCAN, NM TUMOR LOCAL SPECT CT, DATE/TIME OF EXAM: ??08/19/2022 3:24 PM, LOCATION ??[facility] INDICATION: E89.0: Postoperative hypothyroidism [...] CT,DATE/TIME OF EXAM: 08/19/2022 3:24 PM, LOCATION [facility] INDICATION: E89.0: Postoperative hypothyroidism [...] PM. > Dictated by Donald Mayer MD (Underground Electrician) 08/19/2022 4:15 PM ITiesha DO have personally reviewed and interpreted this examination/study. > Interpreting Provider: Tiesha Sy DO on 08/19/2022 4:38 PM Yosi Bustamante MD NM ORDERABLES * DRUG SCREEN TOX URINE PANEL (IN HOUSE) (08/14/2022 4:09 PM GYM SUPERVISOR) Only the most recent of2 resultswithin the time period is included. Amphetamines Screen Urine Negative Negative: < 1000 ng/mL 08/14/2022 5:03 PM GYM SUPERVISOR [facility] Barbiturates Screen Urine Negative Negative: < 200 ng/mL 08/14/2022 5:03 PM GYM SUPERVISOR [facility] Benzodiazepine Screen Urine Negative Negative: < 200 ng/mL 08/14/2022 5:03 PM [facility] Opiates Urine Negative Negative: < 300 ng/mL 08/14/2022 5:03 PM [facility] Cocaine Metabolites Urine Negative Negative: < 300 ng/mL 08/14/2022 5:03 PM [facility] Phencyclidine Screen Urine Negative Negative: < 25 ng/ml 08/14/2022 5:03 PM [facility] Cannabinoids Screen Urine Negative Negative: <50 ng/mL 08/14/2022 5:03 PM [facility] Methadone Screen Urine Negative Negative: < 300 ng/mL 08/14/2022 5:03 PM [facility] Fentanyl Screen Urine Negative Negative: <1.5 ng/mL 08/14/2022 5:03 PM [facility] Urine URINE / Unknown Collection / Unknown 08/14/2022 4:09 PM [facility] 08/14/2022 4:25 PM [facility] - 08/14/2022 5:03 PM [facility] The Urine Toxicology Screening Panel does not screen for Propoxyphene, Meprobamate, Carisoprodol, Trazodone, zrry-gsx-jmlqhxj medications and/or volatiles (Acetone, Isopropanol, Methanol or Ethylene Glycol). Ethanol, Salicylate, Acetaminophen, Tricyclic Antidepressants and several therapeutic drugs may be individually assayed in serum or plasma specimen. Toxicology testing by the [facility] is an aid to medical diagnosis and treatment of patients. No documented chain of custody was maintained. Results are intended to be used for clinical purposes only. ? Adriana Sunq DO LAB - URINE CHEMISTR Y ORDERABLES Performing Organization Address [facility]/ZIP Co de Phone Number [address] [address], [place] [phone] * HIV-1 HIV-2 ANTIBODY + HIV P24 AG PANEL (New on 11/18) (08/14/2022 3:21 PM GYM SUPERVISOR) HIV Antigen/Antibod y 1 & 2 Non-reacti ve Non-react oswaldo 08/14/2022 4:18 PM GYM SUPERVISOR [facility] Comment:No Laboratory eviden ce of HIV infection. Blood BLOOD SPECIMEN / Unknown Lab Venipuncture / Unknown 08/14/2022 3:21 PM GYM SUPERVISOR 08/14/2022 3:33 PM GYM SUPERVISOR Adrianarainer Wagonerq DO LAB - CHEMISTRY ORDE RABHORTENCIA Performing Organization Address [facility] Co de Phone Number [address] [address], [place] [phone] * [place] US SOFT TISS HEAD&NCK R-T IMG (07/02/2022 11:41 AM GYM SUPERVISOR) Narrative Yosi Bustamante MD - 07/02/2022 11:41 AM GYM SUPERVISOR Yosi Bustamante MD ? 07/02/2022 11:47 AM [...] ?? Most chocolate (due to milk content). ??Pearson powder and some dark chocolates are allowed. [...] chicken or beef, oil and vinegar dressing [place] with Matzo crackers, plain peanut butter, jelly [...] DATE/TIME OF EXAM: ??04/10/2022 1:55 PM, LOCATION ??[facility] INDICATION: M25.512: Left shoulder pain, [...] DATE/TIME OF EXAM: 04/10/2022 1:55 PM, LOCATION [facility] INDICATION: M25.512: Left shoulder pain, [...] DATE/TIME OF EXAM: ??03/29/2022 4:40 PM, LOCATION ??[facility] INDICATION: M75.102: Nontraumatic tear of left [...] DATE/TIME OF EXAM: 03/29/2022 4:40 PM, LOCATION [facility] INDICATION: M75.102: Nontraumatic tear of left [...] AM Kami Willingham PA-C MR ORDERABLES * WI DRAIN/INJECT LARGE JOINT/BURSA (02/27/2022 2:13 PM CDT) [...] complication. ?? There was zero blood loss. Kmai Willingham PA-C PROCEDURE/MINOR SURG ICAL ORDERABLES * ETT LINE PERFORMABLE (02/05/2022 10:47 AM CDT) Narrative Kendra Smith Anes Asst - 02/05/2022 10:47 AM CDT Kendra Smith Anes Asst ? 02/05/2022 10:51 AM Endotracheal Tube Placement: ? Patient Location: OR. Intubation Event Date/Time: ??02/05/2022 10:39 AM Procedure: intubation (12482). Procedure Section: ?? Sedation: under general anesthesia. [...] Rachel Aviles MD GENERAL ANESTHESIA ORDERABLES * WI LARYNGOSCOPY,FLEX FIBER,DIAGNOSTIC (01/28/2022 12:24 PM CDT) Narrative Neri Delgado MD - 01/28/2022 12:24 PM CDT Neri Delgado MD ? 01/28/2022 12:26 PM Procedure Note Anesthesia: Lidocaine 2% and Stone-Synephrine 1/2% Endoscopy Type: ??Flexible Muuwu-Iumsfcddrcwzjg-Ikdrbwjtbzha Procedure Details: ??Informed consent was obtained. ??The [...] POINT OF CARE (AMB) [facility] (10/29/2021) Specific [place] UA 1.015 [facility] pH UA 6.0 [...] - POINT OF CARE ORDERABLES [facility] [address] [place] [address] * WI US SOFT TISS HEAD&NCK R-T IMG (10/08/2021 [...] PROCEDURE/MINOR MADELINE GICAL ORDERABLES * PTH INTACT ([facility]) (03/21/2021 10:47 AM CDT) Only the most recent of14 resultswithin the time period is included. PTH Intact 42.1 8.0 - 77.0 pg/mL 03/21/2021 11:55 AM CDT [facility] Blood BLOOD SPECIMEN / Unknown Lab Venipuncture / Unknown 03/21/2021 10:47 AM CDT 03/21/2021 11:25 AM CDT Yosi Bustamante MD LAB - CHEMISTRY ORD ERABLES [facility] [address] [place] [address], [place] [phone] * NM THYROID THERAPY (03/19/2021 2:49 PM [...] There is no effusion. Procedure Note Nico Meehna MD - 02/14/2021 Exam: XR KNEE LEFT 4VW History: M25.569: Knee pain, unspecified chronicity, unspecified laterality Comparison: None. Findings: No fracture or dislocation is present. The joint spaces are normal.There is no effusion. IMPRESSION: Normal. This report was electronically signed by NICO MEEHAN MD on02/14/2021 1:15 PM . Cesar Brooks MD DIAGNOSTIC IMAGING ORDERABLES * WI TANGNTL BX SKIN SINGLE LES (12/09/2020 3:50 [...] a patient labeled container and sent to [facility] Dermatopathology. Patient agrees to phone call for results and message if not available. [place] MD Mee Ward MD PROCEDURE/NIDHI R SURGICAL ORDERABLES * DERMATOPATHOLOGY (12/09/2020 3:33 AM CDT) Case Report Dermatopathology Report ? Case: [id number] ? Authorizing Provider: ??Mee Ward, ?? Collected: [...] characteristic determined by the Dermatopathology Laboratory at [facility], directed by Dr. Cheli Soliz. These tests need not be, and therefore are not, approved by the [place] Food and Drug Administration. The tests are used for clinical purposes. Billing Codes Specimen Charges Stain Charges 50325 1 4:19 PM CDT [facility] Embedded Images 4:19 PM CDT [facility]ERMATOPATHOLOGY LABORATORY Pathology/Cytolo gy TISSUE SPECIMEN FROM SKIN / Unknown 12/09/2020 3:33 AM CDT 12/10/2020 5:22 AM CDT Mee Ward MD LAB - PATHOLOG Y/CYTOLOGY ORDERABLES DERMATOPATHOLOGY LABORATORY [facility] Department of Dermatology [address], [address] [phone] * XR HIP LEFT 2VW OR MORE [...] is seen. There is severe arthritis with chjo-zn-opbg contact superiorly, subchondral cysts, sclerosis, and osteophytes. [...] is seen. There is severe arthritis with zanm-gx-nhjo contact superiorly, subchondral cysts, sclerosis, and osteophytes. [...] is seen. There is severe arthritis with edac-wu-eaxx contact superiorly, subchondral cysts, sclerosis, and osteophytes. [...] is seen. There is severe arthritis with moot-dh-mvkx contact superiorly, subchondral cysts, sclerosis, and osteophytes. [...] CALCIUM IONIZED WHOLE BLOOD (08/29/2020 4:08 AM GYM SUPERVISOR) Only the most recent of37 resultswithin the time period is included. Ionized Calcium Whole Blood 1.05 mmol/L 08/29/2020 4:58 AM [facility] Adjusted Ionized Calcium 1.07(L) 1.19 - 1.34 mmol/L 08/29/2020 4:58 AM [facility] pH Whole Blood 7.44 7.35 - 7.45 08/29/2020 4:58 AM [facility] Blood WHOLE BLOOD SPECIMEN / Unknown Lab Venipuncture / Unknown 08/29/2020 4:08 AM GYM SUPERVISOR 08/29/2020 4:57 AM GYM SUPERVISOR Dionte Comer MD LAB - CHEMISTRY [facility] [address] [place] [address], [facility] [phone] * (ABNORMAL) CBC W/O DIFFERENTIAL (08/29/2020 4:08 AM [facility]) Only the most recent of12 resultswithin the time period is included. WBC 11.2(H) 3.5 - 10.5 10? 3 /uL 08/29/2020 5:12 AM [facility] RBC 4.27 3.90 - 5.00 10? 6 /uL 08/29/2020 5:12 AM [facility] Hemoglobin 12.3 12.0 - 15.5 g/dL 08/29/2020 5:12 AM [facility] Hematocrit 38.0 35.0 - 45.0 % 08/29/2020 5:12 AM [facility] MCV 89.0 81.0 - 97.0 fL 08/29/2020 5:12 AM [facility] MCH 28.8 28.0 - 34.0 pg 08/29/2020 5:12 AM [facility] MCHC 32.4 32.0 - 36.0 g/dL 08/29/2020 5:12 AM [facility] Platelet Count 380 150 - 400 10? 3 /uL 08/29/2020 5:12 AM [facility] RDW-SD 40.0 36.0 - 50.0 fL 08/29/2020 5:12 AM [facility] RDW-CV 12.4 11.2 - 14.8 % 08/29/2020 5:12 AM [facility] MPV 9.8 9.3 - 12.8 fL 08/29/2020 5:12 AM [facility] nRBC Absolute 0.00 0 10? 3 /uL 08/29/2020 5:12 AM [facility] nRBC Auto 0.0 0 /100 WBC 08/29/2020 5:12 AM [facility] Blood BLOOD SPECIMEN / Unknown Lab Venipuncture / Unknown 08/29/2020 4:08 AM GYM SUPERVISOR 08/29/2020 5:00 AM GYM SUPERVISOR Dionte Comer MD LAB - HEMATOLOGY ORD ERABLES [address] [address], [place] [phone] * (ABNORMAL) ALBUMIN BLOOD (08/29/2020 4:08 AM GYM SUPERVISOR) Only the most recent of7 resultswithin the time period is included. Albumin 2.9(L) 3.4 - 5.0 g/dL 08/29/2020 5:28 AM GYM SUPERVISOR [facility] Blood BLOOD SPECIMEN / Unknown Lab Venipuncture / Unknown 08/29/2020 4:08 AM GYM SUPERVISOR 08/29/2020 5:00 AM GYM SUPERVISOR Dionte Comer MD LAB - CHEMISTRY ORDE RABLES Performing Organization Address City/[facility]/ZIP Co de Phone Number [address] [address], [place] [phone] * (ABNORMAL) GLUCOSE - POINT OF CARE (08/27/2020 4:27 PM GYM SUPERVISOR) Glucose WB/POC 157(H) 70 - 115 mg/dL 08/27/2020 4:32 PM GYM SUPERVISOR [facility] Specimen Type Arterial/C apillary 08/27/2020 4:32 PM GYM SUPERVISOR [facility] Blood BLOOD SPECIMEN / Unknown 08/27/2020 4:27 PM GYM SUPERVISOR 08/27/2020 4:32 PM GYM SUPERVISOR Dionte Comer MD LAB - POINT OF CARE ORDERABLES [address] [address], [place] [phone] * CALCIUM URINE RANDOM (08/25/2020 1:12 PM GYM SUPERVISOR) Only the most recent of3 resultswithin the time period is included. Calcium Random Urine 5.5 Not Established mg/dL 08/25/2020 1:41 PM GYM SUPERVISOR [facility] Urine URINE SPECIMEN OBTAINED BY CLEAN CATCH PROCEDURE / Unknown Collection / Unknown 08/25/2020 1:12 PM GYM SUPERVISOR 08/25/2020 1:32 PM GYM SUPERVISOR Dionte Comer MD LAB - URINE CHEMISTR Y ORDERABLES [facility] [address] [place] [address], [facility] [phone] * XR ABDOMEN KUB PORTABLE (08/19/2020 4:52 PM GYM SUPERVISOR) Anatomical Region Laterality Modality Abdomen Radiographic Antonieta ging 08/20/2020 7:32 AM GYM SUPERVISOR Impressions 08/20/2020 9:00 AM GYM SUPERVISOR Findings/impression: 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 Dictated by Kendall Quiroz MD (osteopathic resident). I, Dr. ROGER HOUSE have personally reviewed and interpreted this examination/study. This report was electronically signed by ROGER HOUSE ??on 08/20/2020 9:00 AM . 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 Findings/impression: 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 Dictated by Kendall Quiroz MD (osteopathic resident). I, Dr. ROGER HOUSE have personally reviewed and interpreted this examination/study. This report was electronically signed by ROGER HOUSE on 08/20/2020 9:00 AM . Dionte Comer MD DIAGNOSTIC IMAGING O RDERABLES * ETT LINE PERFORMABLE (08/19/2020 2:20 PM GYM SUPERVISOR) Narrative Parker, Unruly, MD - 08/19/2020 2:20 PM GYM SUPERVISOR Unruly Parker MD ? 08/27/2020 ??7:46 AM Endotracheal Tube Placement: ? Patient Location: OR. Intubation Event Date/Time: ??08/19/2020 2:10 PM Procedure: intubation (69715). Procedure Section: ?? Sedation: under general anesthesia. [...] Staff Section ?? Anesthesia Provider: Norma Santana APRN-FLAME GOUGER, Performed the procedure Provider #1: Unruly Parker MD. Additional Comments: reintubated orally after having had ETT in tracheal incision. Under continuous general anesthesia. Unruly Parker MD GENERAL ANESTHESIA O RDERABLES * ETT LINE PERFORMABLE (08/19/2020 8:34 AM [facility]) Narrative Unruly Parker MD - 08/19/2020 8:34 AM GYM SUPERVISOR Unruly Parker MD ? 08/27/2020 ??7:46 AM Endotracheal Tube Placement: ? Patient Location: OR. Intubation Event Date/Time: ??08/19/2020 7:45 AM Procedure: intubation (75192). Procedure Section: ?? Sedation: under general anesthesia. [...] Staff Section ?? Anesthesia Provider: Norma Santana APRN-FLAME GOUGER Provider #1: Unruly Parker MD. Additional Comments: IV induction, then Dr. Comer did largyngoscopy and placed #6 nerve monitoring ETT after using LTA, ETT secured with pink tape and tegaderms. Surgeon placed tegaderms over eyes. . Unruly Parker MD GENERAL ANESTHESIA O RDERABLES * MRI BRAIN WO CONTRAST (08/17/2020 1:40 PM GYM SUPERVISOR) Anatomical Region Laterality Modality Head Magnetic Resonan ce 08/19/2020 7:32 AM GYM SUPERVISOR Impressions 08/19/2020 11:14 AM GYM SUPERVISOR IMPRESSION: 1.Corresponding to the abnormality seen [...] 11:14 AM . Narrative 08/19/2020 11:14 AM GYM SUPERVISOR EXAMINATION: MRI of the brain without [...] enlarged left level 3/4 cervical lymph node. Mike, Dr. CHANTELL SNELL have personally reviewed and interpreted this examination/study. This report was electronically signed by CHANTELL SNELL on 08/19/2020 11:14 AM . Dionte oCmer MD MR ORDERABLES * MRI NECK SOFT TISSUE WWO CONT (08/17/2020 1:39 PM GYM SUPERVISOR) Anatomical Region Laterality Modality Head Magnetic Resonan ce 08/19/2020 7:32 AM GYM SUPERVISOR Impressions 08/19/2020 11:14 AM GYM SUPERVISOR IMPRESSION: 1.Corresponding to the abnormality seen [...] 11:14 AM . Narrative 08/19/2020 11:14 AM GYM SUPERVISOR EXAMINATION: MRI of the brain without [...] SARS-COV-2 (COVID-19) IN HOUSE (08/15/2020 11:01 AM GYM SUPERVISOR) COVID-19 PCR Not detected Not detected 08/15/2020 4:50 PM GYM SUPERVISOR [facility] MICROBIOLOGY Microbiology SPECIMEN FROM NASOPHARYNGEAL STRUCTURE / Unknown Collection / Unknown 08/15/2020 11:01 AM GYM SUPERVISOR 08/15/2020 11:01 AM GYM SUPERVISOR Narrative [facility] MICRO[facility] - 08/15/2020 4:50 PM GYM SUPERVISOR This nucleic acid amplification assay performance was validated by [facility] Microbiology Laboratory. This test has been authorized [...] Comer MD LAB - MICROBIOLOGY O RDERABLES [facility] MICROBIOLOG[facility] [address] [place] [address], [facility] [phone] * CT SWALLOWING FUNCTION STUDY (08/07/2020 3:25 PM GYM SUPERVISOR) Anatomical Region Laterality Modality Chest Radiographic Antonieta ging 08/07/2020 3:11 PM GYM SUPERVISOR Impressions 08/07/2020 3:16 PM GYM SUPERVISOR IMPRESSION: Fluoroscopic assistance was provided for a modified barium swallow test performed by Speech Therapy. Please see the Speech Therapy report for details. Report dictated by Jonathan Andre DO (osteopathic resident). I, Dr. ROGER HOUSE have personally reviewed and interpreted this examination/study. This report was electronically signed by ROGER HOUSE ??on 08/07/2020 3:16 PM . Narrative 08/07/2020 3:16 PM GYM SUPERVISOR EXAMINATION: Modified barium swallow HISTORY: R13.19: Other [...] details. Report dictated by Jonathan Andre DO (osteopathic resident). I, Dr. ROGER HOUSE have personally reviewed and interpreted this examination/study. This report was electronically signed by ROGER HOUSE on 08/07/2020 3:16 PM . Nolvia Srinivas Chun BUSINESS INVESTOR-LIFEGUARD FLUOROSCOPY ORDERA BLES * FINE NEEDLE ASPIRATION - THYROID (STL) (08/01/2020 2:51 PM GYM SUPERVISOR) Only the most recent of2 resultswithin the time period is included. Case Report Medical Cytology Report ? Case: [id number] ? Authorizing Provider: ??Maryse Lovett MD ? Collected: ? 08/01/2020 02:51 PM ? Ordering Location: ? [facility] ?Received: ?08/01/2020 03:15 PM ? Pathologist: ? Jhonny Young MD ? Specimen: ?Thyroid, right nodule ? 08/05/2020 3:26 PM GYM SUPERVISOR [facility] Specimen Adequacy Adequate cellularity for evaluation. 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 08/05/2020 3:26 PM [facility] Clinical History The patient is a 60 year-old woman recently found to have a right thyroid nodule who underwent fine needle aspiration of the nodule on 08/01/2020. CT neck (07/24/2020) A 2.8 x 2.0 cm hypoattenuating nodule in the right lobe of the thyroid gland causing mass effect. 08/05/2020 3:26 PM [facility] Gross Description 1 pap stained slide, 1 cell block from 30cc collection fluid 08/05/2020 3:26 PM [facility] Microscopic Description [...] its indolent counterpart NIFTP. 08/05/2020 3:26 PM [facility] Disclaimer The performance characteristics of all immunohistochemical and indirect immunofluorescence stains (if any) cited in this report were determined by the Histopathology Laboratory of [facility]. Some of these tests rely on the use of analyte-specific reagents and are subject to specific labeling requirements by the [place] Food and Drug Administration. Such tests were developed by the Histology Laboratory of [facility] and have not been cleared or [...] the attending (teaching) pathologist. 08/05/2020 3:26 PM [facility] Embedded Images 08/05/2020 3:26 PM GYM SUPERVISOR [facility] Pathology/Cytolo gy SPECIMEN FROM THYROID OBTAINED BY THYROIDECTOMY / Unknown Collection / Unknown 08/01/2020 2:51 PM GYM SUPERVISOR 08/01/2020 3:15 PM GYM SUPERVISOR Maryse Lovett MD LAB - PATHOLOGY/CYTO LOGY ORDERABLES [facility] [address] [phone] * US THYROID FNA (08/01/2020 2:41 PM GYM SUPERVISOR) Anatomical Region Laterality Modality X-Ray Angiograph y 08/01/2020 2:59 PM GYM SUPERVISOR Impressions 08/11/2020 6:37 PM GYM SUPERVISOR Impression: Ultrasound-guided fine needle aspiration of a right thyroid nodule, as described above.The pathology report is pending at the time of this dictation. I, Dr. Maryse Lovett, was present and performed/supervised the entire procedure. Dictated by Molly Rao M.D. (osteopathic resident) I, Dr. MARYSE LOVETT M.D. have personally reviewed and interpreted this examination/study. This report was electronically signed by MARYSE LOVETT M.D. ??on 08/11/2020 6:37 PM . Narrative 08/11/2020 6:37 PM GYM SUPERVISOR History: 60 year oldfemalerecemtly found to have [...] entire procedure. Dictated by Molly Rao M.D. (osteopathic resident) Dr. MARYSE Mckeon M.D. have personally reviewed and interpreted this examination/study. This report was electronically signed by MARYSE LOVETT M.D. on08/11/2020 6:37 PM . Dionte Comer MD US ORDERABLES * WI LARYNGOSCOPY,FLEX FIBER,DIAGNOSTIC (07/24/2020 5:22 PM GYM SUPERVISOR) Narrative Vince Willingham MD - 07/24/2020 5:22 PM GYM SUPERVISOR Vince Willingham MD ? 07/24/2020 11:38 PM [...] RADIOLOGY XRAY RESULTS ORDER (07/24/2020 4:26 PM GYM SUPERVISOR) Anatomical Region Laterality Modality Other Narrative 07/24/2020 4:26 PM GYM SUPERVISOR Ordered by an unspecified provider. Scanned Document IMAGING * MRI FOOT RIGHT WO CONTRAST (07/02/2020 1:48 PM GYM SUPERVISOR) Anatomical Region Laterality Modality Ankle / Foot Magnetic Resonan ce 07/02/2020 2:35 PM GYM SUPERVISOR Impressions 07/02/2020 3:19 PM GYM SUPERVISOR IMPRESSION: 1. No fracture or stress fracture. [...] 3:19 PM . Narrative 07/02/2020 3:19 PM GYM SUPERVISOR Exam: ??MRI FOOT RIGHT WO CONTRAST History: ??M79.671: Right foot pain . Persistent pain in the second metatarsal, bursitis versus fracture versus Aceves neuroma Comparison: Right foot Radiographs dated 04/02/2020 TECHNIQUE: Images were obtained in the axial, sagittal, and coronal planes using T1 and fluid sensitive fat suppressed sequences without contrast. The oetlm-ug-txcl was set to evaluate the area of [...] sensitive fat suppressed sequences without contrast. The ucxeh-hl-vmqp was set to evaluate the area of [...] ORDERABLES * CT GUIDED NEEDLE BIOPSY THYROID (49418) (04/18/2020 4:07 PM CDT) Anatomical Region Laterality [...] 5), was referred for ultrasound-guided fine-needle aspiration. Surgical Aides Teacher: Dr. Milan Quarles, Attending Physician Anesthesia: Local [...] (TR 5), wasreferred for ultrasound-guided fine-needle aspiration. Surgical Aides Teacher: Dr. Milan Quarles, Attending Physician Anesthesia: Local [...] MD on04/02/2020 1:12 PM . Marylu Bajwa BUSINESS INVESTOR-LIFEGUARD DIAGNOSTIC IMAG ING ORDERABLES * HEPATITIS C AB SCREEN RFLX NAAT QUANT (03/07/2020 3:19 PM CDT) Hepatitis C Antibody Non-react oswaldo Non-reac tive 03/07/2020 4:28 PM CDT [facility] Comment:Hepatitis C Antibody screen indicates no [...] Marie DO LAB - CHEMISTRY [facility] [address] [place] [address], [facility] [phone] * HEMOGLOBIN A1C (03/07/2020 3:19 PM CDT) Hemoglobin A1c 5.5 4.4 - 6.3 % 03/08/2020 9:49 AM CDT [facility] Estimated Average Glucose 111 mg/dL 03/08/2020 9:49 AM CDT [facility] Comment: HbA1c Interpretation: Treatment target values recommended by ADA and other clinical organizations should be used to evaluate metabolic control in patients. Treatment Target Values: Normal : < 5.7% Pre-diabetes: 5.7-6.4% Diabetes: Equal to or greater than 6.5% Reference: [place] [employer] Standards of Care in Diabetes -2014 In patients 70 years and older consider HbA1c target range of 7.0-7.5% Reference: ??Diabetes Mellitus in Older People: Position Statement on behalf of the International Association of Gerontology and Geriatrics (IAGG), the Diabetes Working Democrat for Older People (EDWPOP), and the International Task Force of Experts in Diabetes. ??Jus Blackman, et al. J [place] [employer]. 2012 Test results diagnostic of diabetes should be repeated for confirmation. The Sebia Capillary 2 assay for the measurement of HbA1c is a National Glycohemoglobin Standardization Program (NGSP)certified method. Blood BLOOD SPECIMEN / Unknown Lab Venipuncture / Unknown 03/07/2020 3:19 PM CDT 03/07/2020 3:43 PM CDT Marylu Marie DO LAB - CHEMISTRY [facility] Organization Address City/State/[facility] de Phone Number [facility] [address] [place] [address], [facility] [phone] * LIPID PROFILE (03/07/2020 3:19 PM CDT) Cholesterol Total 150 <200 mg/dL 03/07/2020 4:12 PM CDT [facility] HDL 51 >40 mg/dL 03/07/2020 4:12 PM CDT [facility] Comment: ATP III Classification of HDL Cholesterol: ? <40 mg/dL: ??Considered a major risk factor. ? >60 mg/dL: ??Considered a negative risk factor. ? LDL Calculated 80 <100 mg/dL 03/07/2020 4:12 PM CDT [facility] Comment: ATP III Classification of LDL Cholesterol: ?<100 mg/dL: ??Optimal ? 100 - 129 mg/dL: ??Near Optimal/Above Optimal ? 130 - 159 mg/dL: ??Borderline High ? 160 - 189 mg/dL: ??High ?>190 mg/dL: ??Very High ? Triglycerides 93 <150 mg/dL 03/07/2020 4:12 PM CDT [facility] Comment: ATP III Classification of Triglycerides: ?<150 mg/dL: ??Normal ? 150 - 199 mg/dL: ??Borderline High ? 200 - 400 mg/dL: ??High ?>500 mg/dL: ??Very High Blood BLOOD SPECIMEN / Unknown Lab Venipuncture / Unknown 03/07/2020 3:19 PM CDT 03/07/2020 3:45 PM CDT Marylu Marie DO LAB - CHEMISTRY [facility] Organization Address [facility]/State/[facility] Co de Phone Number [address] [address], [facility] [phone] * US THYROID (03/07/2020 3:06 PM CDT) [...] its size. Dictated by Kendall Quiroz MD (Underground Electrician) I, Dr. RU BAILEY M.D. have personally [...] TR 4 nodule, recommend short-term follow-up (image [id number]). The second nodule is well-circumscribed, hypoechoic, solid nodule, measuring 0.6 x 0.6 x 0.3 cm; this is a TR 4 nodule, which is not suspicious (image [id number]). The isthmus is mildly thickened. Vascularity of [...] TR 4 nodule, recommend short-term follow-up (image [id number]). The second nodule is well-circumscribed, hypoechoic, solid nodule, measuring 0.6 x 0.6 x 0.3 cm; this is a TR 4 nodule, which is not suspicious (image [id number]). The isthmus is mildly thickened. Vascularity of [...] its size. Dictated by Kendall Quiroz MD (Underground Electrician) I, Dr. RU BAILEY M.D. have personally reviewed and interpreted this examination/study. This report was electronically signed by RU BAILEY M.D. on 03/12/2020 9:04 AM . Marylu Marie DO US ORDERABLES * HPV DETECTION HIGH RISK LEE (11/23/2019 10:00 AM CDT) High Risk Human Papilloma Result Not Detected Not Detected 11/28/2019 3:43 PM CDT [facility] High Risk Human Papilloma Interp 11/28/2019 3:43 PM CDT [facility] Comment:High Risk Human Taurus lloma Virus was Not Detected. Pathology/Cytolo gy MISCELLANEOUS SAMPLES / Unknown 11/23/2019 10:00 AM CDT 11/24/2019 11:39 AM CDT Narrative [facility] - 11/28/2019 3:43 PM CDT [...] - MICROB IOLOGY ORDERABLES Performing Organization Address City/State/[facility] Phone Number [facility] [address] [phone] * PAP IMAGE-GUIDED W HPV (11/23/2019 10:00 AM CDT) Case Report Gynecologic Cytology Report ? Case: [id number] ? Authorizing Provider: ??Tati pino, Lexii Ortiz, [...] 10:17 AM CDT [facility] Interpretation PERFORMANCE MAKEUP ARTIST Negative for intraepithelial lesion or malignancy. 11/29/2019 10:17 AM CDT [facility] Other Atrophic changes. 020 10:17 AM CDT [facility] Pap Footnote This specimen was evaluated by the ThinPrep Imaging System along with the an additional manual rescreening by a food service cashier and/or pathologist. 11/29/2019 10:17 AM CDT [facility] Embedded Images 0 10:17 AM CDT [facility] Pathology/Cytolo gy MISCELLANEOUS SAMPLES / Unknown 11/23/2019 10:00 AM CDT 11/24/2019 11:39 AM CDT Lexii Dillard MD LAB - PATHOL OGY/CYTOLOGY ORDERABLES Performing Organization Address City/State/[facility] Co de Phone Number [facility] [address] [phone] Care Teams Bellhop Relationship Specialty Start Date End Date Yaya Villatoro MD [address] [facility] [address] [place] [address] PCP - General Internal Medicine 05/04/23 Joseph Manzanares MD [address] [place] [address] Internal Medicine 04/21/23
--- OUTSIDE RECORDS SUMMARY | 2024-07-26 08:22 | XMS_ITS | Encounter Summary ---
Author Organization [facility] Health Address [address] [facility] [place] [address] Care Team Providers Care Commercial Announcer Name Role Phone Joseph Manzanares MD Unavailable Yaya Villatoro MD Primary Care Provider +1- [phone] Reason for Visit * Radiology Services (Routine) - Closed Specialty Diagnoses / Procedures Referred By Yuan t Referred To Contact Hematology-Oncology Diagnoses Papillary carcinoma of thyroid (HCC) Procedures CT Neck Soft Tissue W Cont Remi Beckett MD [address] [place] [address] Referral ID Status Reason Start Date Expiration Date Visits Re quested Visits Authorized [id number] Closed 05/31/2024 05/31/2025 1 1 Encounter Details Date Type Department Care Team (Latest Contact Info) Description 07/07/2024 11:23 AM INCOME TAX ADJUSTER - 07/07/2024 1:03 PM [facility] [[email or web address] Hospital Encounter [facility] CAT SCAN [address] [place] [phone] Remi Beckett MD [address] [place] [address] Discharge Disposition: Home or Self [...] Recorded Patient Health Questionnaire-2 Score 0 07/06/2024 [facility] [place] of Occupat ional Health - Occupational [...] 2 times daily 08/28/2022 calcium 500 mg tabletIndications:[place] stasis to bone (HCC) Take 1 (one) [...] naloxone HCl (Narcan) 4 MG/0.1ML nasal spray [employer] 1 (one) spray into the nose as [...] vitamin D3 (Cholecalciferol) 10 MCG (400 UNIT) tabletIndications:[place] stasis to bone (HCC) Take 1 (one) tablet by mouth once daily 30 tablet 06/15/2024 documented as of this encounter Plan of Treatment Upcoming Encounters Date Type Department Care Team (Late st Contact Info) Description 08/02/2024 2:20 PM INCOME TAX ADJUSTER Appointment [facility] [address] [place] [address] 08/02/2024 3:00 PM INCOME TAX ADJUSTER Office Visit [facility] - Hematology/Oncology [address] [place] [phone] Remi Beckett MD [address] [place] [phone] 08/18/2024 1:45 PM INCOME TAX ADJUSTER Office Visit [facility] - ENT [address] [place] [phone] Neri Delgado MD [address] [place] [address] 08/30/2024 2:20 PM INCOME TAX ADJUSTER Appointment [facility] [address] [place] [address] documented as of this encounter Procedures Procedure Name Priority Date/Time Associated Diagnosis Comments CT NECK SOFT TISSUE W CONT Routine 07/07/2024 12:11 PM INCOME TAX ADJUSTER Papillary carcinoma of thyroid (HCC) documented in this encounter Results * CT Neck Soft Tissue W Cont (07/07/2024 12:11 PM INCOME TAX ADJUSTER) Anatomical Region Laterality Modality Head Computed Tomogra phy 07/09/2024 9:47 AM INCOME TAX ADJUSTER Impressions 07/09/2024 10:08 AM INCOME TAX ADJUSTER IMPRESSION: 1. A 9 x 7 x [...] 07/09/2024 10:08 AM Narrative 07/09/2024 10:08 AM INCOME TAX ADJUSTER PROCEDURE: ??CT NECK SOFT TISSUE W CONT, DATE/TIME OF EXAM: ??07/07/2024 12:12 PM, LOCATION ??[facility] INDICATION: C73: Papillary carcinoma of thyroid (HCC) [...] CONT, DATE/TIME OF EXAM: 2:12 PM, LOCATION [facility] INDICATION: C73: Papillary carcinoma of thyroid (HCC) [...] Intravenous, CONTRAST ONCE, Starting on Wed07/07/24 at 1123, Until 07/08/24 at 0131 $ Given - Contrast 07/07/2024 12:12 PM INCOME TAX ADJUSTER 50 mL documented in this encounter Care Teams Commercial Announcer Relationship Specialty Start Date End Date Yaya Villatoro MD [address] [facility] [address] [place] [phone] PCP - General Internal Medicine 05/04/23 Joseph Manzanares MD [address] [place] [phone] Internal Medicine 04/21/23 documented as of this encounter
--- OUTSIDE RECORDS SUMMARY | 2024-07-26 08:22 | XMS_ITS | Encounter Summary ---
Author Organization [facility] Health Address [address] [facility] [place] [address] Care Team Providers Care Orthotic Finish Grinding Technician Name Role Phone Joseph Manzanares MD Unavailable Yaya Villatoro MD Primary Care Provider +1- [phone] Reason for Referral * Radiology Services (Routine) - Closed Specialty Diagnoses / Procedures Referred By Yuan robins Referred To Contact Hematology-Oncology Diagnoses Papillary carcinoma of thyroid (HCC) Procedures CT Chest Abdomen Pelvis W Remi Jefferson MD [address] [place] [address] Referral ID Status Reason Start Date Expiration Date Visits Re quested Visits Authorized [id number] Closed 05/31/2024 05/31/2025 1 1 STARTER Reason for Visit * Radiology Services (Routine) - Closed Specialty Diagnoses / Procedures Referred By Yuan robins Referred To Contact Hematology-Oncology Diagnoses Papillary carcinoma of thyroid (HCC) Procedures CT Chest Abdomen Pelvis W Remi Jefferson MD [address] [place] [address] Referral ID Status Reason Start Date Expiration Date Visits Re quested Visits Authorized [id number] Closed 05/31/2024 05/31/2025 1 1 Encounter Details Date Type Department Care Team (Latest Contact Info) Description 07/07/2024 11:23 AM LOOM STARTER - 07/07/2024 1:03 PM LOOM STARTER Hospital Encounter [facility] CAT SCAN [address] [place] [address] Remi Beckett MD [address] [place] [address] Discharge Disposition: Home or Self [...] Recorded Patient Health Questionnaire-2 Score 0 07/06/2024 [facility] [place] of Occupat ional Health - Occupational Stress [...] the money to buy more. Never true 03/31/20 23 Within the past 12 months, t [...] 2 times daily 08/28/2022 calcium 500 mg tabletIndications:[place] stasis to bone (HCC) Take 1 (one) [...] naloxone HCl (Narcan) 4 MG/0.1ML nasal spray [employer] 1 (one) spray into the nose as [...] 4 06/10/2022 pantoprazole EC (Protonix) 40 MG tabletIndications:[place] roesophageal reflux disease, unspecified whether esophagitis present [...] vitamin D3 (Cholecalciferol) 10 MCG (400 UNIT) tabletIndications:[place] stasis to bone (HCC) Take 1 (one) tablet by mouth once daily 30 tablet 06/15/2024 documented as of this encounter Plan of Treatment Upcoming Encounters Date Type Department Care Team (Late st Contact Info) Description 08/02/2024 2:20 PM LOOM STARTER Appointment [facility] [address] [place] [address] 08/02/2024 3:00 PM LOOM STARTER Office Visit [facility] - Hematology/Oncology [address] [place] [phone] Remi Beckett MD [address] [place] [phone] 08/18/2024 1:45 PM LOOM STARTER Office Visit [facility] - ENT [address] [place] [phone] Neri Delgado MD [address] [place] [address] 08/30/2024 2:20 PM LOOM STARTER Appointment [facility] [address] [place] [address] documented as of this encounter Procedures Procedure Name Priority Date/Time Associated Diagnosis Comments CT CHEST ABDOMEN PELVIS W CONT Routine 07/07/2024 12:08 PM LOOM STARTER Papillary carcinoma of thyroid (HCC) documented in this encounter Results * CT Chest Abdomen Pelvis W Cont (07/07/2024 12:08 PM LOOM STARTER) Anatomical Region Laterality Modality Chest, Abdomen, Pelvis Computed Tomography 07/07/2024 1:01 PM LOOM STARTER Impressions 07/07/2024 4:00 PM LOOM STARTER Impression: 1.Changes of total thyroidectomy. 2.Minimal enhancement around the gallbladder fundus, this can be seen in adenomyomatosis. Right upper quadrant ultrasound may be obtained for further evaluation if clinically indicated. 3.Partially imaged osseous changes in the lower cervical and upper thoracic spine at site of treated metastasis are better evaluated on MRI from 11/23/2023. > Dictated by Donald NATH, [facility] ??(president & founder). IVaishali MD have personally reviewed and interpreted this examination/study. > Interpreting Provider: Vaishali Herrera MD on 07/07/2024 4:00 PM Narrative 07/07/2024 4:00 PM LOOM STARTER PROCEDURE: ??CT CHEST ABDOMEN PELVIS W CONT, DATE/TIME OF EXAM: ??07/07/2024 12:09 PM, LOCATION ??[facility] INDICATION: C73: Papillary carcinoma of thyroid (HCC) [...] changes of the left hip joint with wggq-ls-qclv contact. Partially imaged posterior spinal fusion hardware. Bone changes in the left aspect of partially imaged C7 at the site of treated metastasis. Soft tissues: Normal. Procedure Note Lorena Herrera MD - 07/07/2024 PROCEDURE: CT CHEST ABDOMEN PELVIS W CONT, DATE/TIME OF EXAM: 07/07/2024 12:09 PM, LOCATION [facility] INDICATION: C73: Papillary carcinoma of thyroid (HCC) [...] osteoarthritic changes ofthe left hip joint with ljra-zr-cdmi contact. Partially imaged posteriorspinal fusion hardware. Bone [...] from 11/23/2023. > Dictated by Donald NATH, [facility] (president & founder). IVaishali MD have personally reviewed and interpreted [...] $ Given - Contrast 07/07/2024 11:46 AM LOOM STARTER 100 mL documented in this encounter Care Teams Orthotic Finish Grinding Technician Relationship Specialty Start Date End Date Yaya Villatoro MD [address] [facility] [address] [place] [address] PCP - General Internal Medicine 05/04/23 Joseph Manzanares MD [address] [place] [phone] Internal Medicine 04/21/23 documented as of this encounter
--- OUTSIDE RECORDS SUMMARY | 2024-07-26 08:22 | XMS_ITS | Encounter Summary ---
Author Organization [facility] Health Address [address] [facility] [place] [address] Care Team Providers Care Python Programmer Name Role Phone Joseph Manzanares MD Unavailable Yaya Villatoro MD Primary Care Provider +1- [phone] Reason for Visit * Radiology Services (Routine) - Closed Specialty Diagnoses / Procedures Referred By Yuan robins Referred To Contact MRI Diagnoses Metastasis to bone (HCC) Secondary malignant neoplasm of bone (HCC) Procedures MRI Cervical Spine Wwo Cont Marcio Mcintosh MD [address] [place] [address] [facility] Mri [address] [place] [address] Referral ID Status Reason Start Date Expiration Date Visits Re quested Visits Authorized [id number] Closed 06/06/2024 09/04/2024 1 1 Encounter Details Date Type Department Care Team (Latest Contact Info) Description 07/06/2024 11:56 AM SPOT FACER - 07/06/2024 1:59 PM [facility] Hospital Encounter [facility] Health Imaging Services - MRI [address] [place] [address] Marcio Mcintosh MD [address] [place] [address] Radiation Oncology Discharge Disposition: Home [...] Recorded Patient Health Questionnaire-2 Score 0 07/06/2024 [facility] [place] of Occupat ional Health - Occupational Stress [...] 2 times daily 08/28/2022 calcium 500 mg tabletIndications:[place] stasis to bone (HCC) Take 1 (one) [...] naloxone HCl (Narcan) 4 MG/0.1ML nasal spray [place] 1 (one) spray into the nose as [...] vitamin D3 (Cholecalciferol) 10 MCG (400 UNIT) tabletIndications:[place] stasis to bone (HCC) Take 1 (one) tablet by mouth once daily 30 tablet 06/15/2024 documented as of this encounter Plan of Treatment Upcoming Encounters Date Type Department Care Team (Late st Contact Info) Description 08/02/2024 2:20 PM SPOT FACER Appointment [facility] [address] [place] [address] 08/02/2024 3:00 PM SPOT FACER Office Visit [facility] - Hematology/Oncology [address] [place] [phone] Remi Beckett MD [address] [place] [address] [phone] 08/18/2024 1:45 PM SPOT FACER Office Visit [facility] - ENT [address] [place] [phone] Neri Delgado MD [address] [place] [address] 08/30/2024 2:20 PM SPOT FACER Appointment [facility] [address] [place] [address] documented as of this encounter Procedures Procedure Name Priority Date/Time Associated Diagnosis Comments MRI CERVICAL SPINE WWO CONT Routine 07/06/2024 1:17 PM SPOT FACER Metastasis to bone (HCC) Secondary malignant neoplasm of bone (HCC) documented in this encounter Results * MRI Cervical Spine Wwo Cont (07/06/2024 1:17 PM SPOT FACER) Anatomical Region Laterality Modality Spine Magnetic Resonan ce 07/06/2024 3:40 PM SPOT FACER Impressions 07/07/2024 6:34 AM SPOT FACER IMPRESSION: 1. 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 No definite evidence of severe central canal stenosis or intramedullary tumor is seen. IMPRESSION: Normal cervical spine MRI performed without and with IV contrast. > Interpreting Provider: Primitivo Martin MD on 07/07/2024 6:34 AM Narrative 07/07/2024 6:34 AM SPOT FACER PROCEDURE: ??MRI CERVICAL SPINE WWO CONT DATE/TIME [...] Starting on Josi 07/06/24 at 1238, Until 07/07/24 at 0132 $ Given - Contrast 07/06/2024 1:01 PM SPOT FACER 10 mL documented in this encounter Care Teams Python Programmer Relationship Specialty Start Date End Date Yaya Villatoro MD [address] [facility] [address] [place] [phone] PCP - General Internal Medicine 05/04/23 Joseph Manzanares MD [address] [place] [phone] Internal Medicine 04/21/23 documented as of this encounter
--- OUTSIDE RECORDS SUMMARY | 2024-07-26 08:22 | XMS_ITS ---
Author Organization [facility] Address [address] [facility] [place] [address] Care Team Providers Care Car Park Attendant Name Role Phone Joseph Manzanares MD Unavailable Yaya Villatoro MD Primary Care Provider +1- [phone] Active Problems Problem Noted Date Diagnosed Date [...] seen Assessment & Plan (08/09/2020 10:15 AM OPHTHALMIC TECHNICIAN APPRENTICE): Inner/outer ear inflammation, cellulitis vs other, reported [...]
--- OUTSIDE RECORDS SUMMARY | 2024-07-26 08:22 | XMS_ITS | Encounter Summary ---
Author Organization [facility] Health Address [address] [facility] [address] Care Team Providers Care Pipe Coremaker Name Role Phone Joseph Manzanares MD Unavailable Yaya Villatoro MD Primary Care Provider +1- [phone] Encounter Details Date Type Department Care Team (Late st Contact Info) Description 07/06/2024 2:00 PM [facility] Hospital Encounter [facility] - Radiation Oncology [address] [place] [address] Marcio Mcintosh MD [address] [place], [place] [phone] Social History Tobacco Use Types Packs/Day Years [...] Recorded Patient Health Questionnaire-2 Score 0 07/06/2024 [facility] of Occupat ional [...] st Contact Info) Description 08/02/2024 2:20 PM SVP BUSINESS DEVELOPMENT Appointment [facility] [address] [place] [address] 08/02/2024 3:00 PM SVP BUSINESS DEVELOPMENT Office Visit [facility] - Hematology/Oncology [address] [place] [phone] Remi Beckett MD [address] [place] [phone] 08/18/2024 1:45 PM SVP BUSINESS DEVELOPMENT Office Visit [facility] - ENT [address] [place] [phone] Neri Delgado MD [address] [place] [address] 08/30/2024 2:20 PM SVP BUSINESS DEVELOPMENT Appointment [facility] [address] [place] [address] documented as of this encounter Visit Diagnoses Not on filedocumented in this encounter Care Teams Pipe Coremaker Relationship Specialty Start Date End Date Yaya Villatoro MD [address] [place] [phone] PCP - General Internal Medicine 05/04/23 Joseph Manzanares MD [address] [place] [phone] Internal Medicine 04/21/23 documented as of this encounter
--- OUTSIDE RECORDS SUMMARY | 2024-07-26 08:22 | XMS_ITS | Encounter Summary ---
Author Organization [facility] Health Address [address] [place] [address] Care Team Providers Care Junior Bookkeeper Name Role Phone Joseph Manzanares MD Unavailable Yaya Villatoro MD Primary Care Provider +1- [phone] Encounter Details Date Type Department Care Team [...] Recorded Patient Health Questionnaire-2 Score 0 07/06/2024 [facility] of Occupat ional Health - [...] st Contact Info) Description 08/02/2024 2:20 PM RECEIVING INSPECTOR Appointment [facility] [address] [place] [address] 08/02/2024 3:00 PM RECEIVING INSPECTOR Office Visit [facility] - Hematology/Oncology [address] [place] [phone] Remi Beckett MD [address] [place] [phone] 08/18/2024 1:45 PM RECEIVING INSPECTOR Office Visit [facility] - ENT [address] [place] [phone] Neri Delgado MD [address] [place] [phone] 08/30/2024 2:20 PM RECEIVING INSPECTOR Appointment [facility] [address] [place] [address] documented as of this encounter Visit Diagnoses Not on filedocumented in this encounter Care Teams Junior Bookkeeper Relationship Specialty Start Date End Date Yaya Villatoro MD [address] [place] [phone] PCP - General Internal Medicine 05/04/23 Joseph Manzanares MD [address] [place] [phone] Internal Medicine 04/21/23 documented as of this encounter
--- OUTSIDE RECORDS SUMMARY | 2024-07-26 08:22 | XMS_ITS | Encounter Summary ---
Author Organization [facility] Health Address [address] [place] [address] Care Team Providers Care Radiology Assistant Name Role Phone Joseph Manzanares MD Unavailable Yaya Villatoro MD Primary Care Provider +1- [phone] Reason for Visit * Reason Onset Date Comments Concerns 07/13/2024 Encounter Details Date Type Department Care Team (Late st Contact Info) Description 07/13/2024 Telephone [facility] - ENT [address] [place] [phone] Andria Aldana, JOSY Concerns Social History Tobacco [...] Recorded Patient Health Questionnaire-2 Score 0 07/06/2024 [facility] of Occupat ional Health [...] GORAN Green for scheduling A.CHAR Aldana, RN N SERVICES ASSISTANT documented in this encounter Plan of Treatment Upcoming Encounters Date Type Department Care Team (Late st Contact Info) Description 08/02/2024 2:20 PM HUMAN SERVICES ASSISTANT Appointment [facility] [address] [place] [address] 08/02/2024 3:00 PM HUMAN SERVICES ASSISTANT Office Visit [facility] - Hematology/Oncology [address] [place] [phone] Remi Beckett MD [address] [place] [phone] 08/18/2024 1:45 PM HUMAN SERVICES ASSISTANT Office Visit [facility] [address] [place] [phone] Neri Delgado MD [address] [place] [address] 08/30/2024 2:20 PM HUMAN SERVICES ASSISTANT Appointment [facility] [address] [place] [address] documented as of this encounter Visit Diagnoses Not on filedocumented in this encounter Care Teams Radiology Assistant Relationship Specialty Start Date End Date Yaya Villatoro MD [address] [facility] [address] [place] [phone] PCP - General Internal Medicine 05/04/23 Joseph Manzanares MD [address] [place] [phone] Internal Medicine 04/21/23 documented as of this encounter
--- OUTSIDE RECORDS SUMMARY | 2024-07-26 08:22 | XMS_ITS | Clinical Summary ---
Author Organization [facility] Address [address] [place] [address] Care Team Providers Care Brazing Furnace Operator Name Role Phone Joseph Manzanares MD Unavailable Yaya Villatoro MD Primary Care Provider [phone] Source Comments [facility],non-owned Affiliates and Associated Physician Practices is amultiple site organization consisting of ambulatory clinics and hospital sitesin [place], [place], [place] and [place]. This disclosure is being madepursuant to the Care Everywhere program and may not contain all information available regarding this patient. Last updated 18.[facility] Allergies Active Allergy Reactions Criticality Noted Date [...] naloxone HCl (Narcan) 4 MG/0.1ML nasal spray [place] 1 (one) spray into the nose as [...] seen Assessment & Plan (08/09/2020 10:15 AM ELECTRON MICROSCOPIST): Inner/outer ear inflammation, cellulitis vs other, reported [...] Telephone [facility] [address] [place] [address] Andria Aldana RN Concerns 07/12/2024 Travel 07/07/2024 1:04 PM ELECTRON MICROSCOPIST - 07/07/2024 11:59 PM ELECTRON MICROSCOPIST Hospital Encounter [facility] NUCLEAR MEDICINE [address] [place] [phone] Remi Beckett MD Discharge Disposition: Home or Self Care 07/07/2024 11:23 AM ELECTRON MICROSCOPIST - 07/07/2024 1:03 PM ELECTRON MICROSCOPIST Hospital Encounter [facility] CAT SCAN [facility] [place] [address] Remi Beckett MD Discharge Disposition: Home or Self Care 07/07/2024 11:23 AM ELECTRON MICROSCOPIST - 07/07/2024 1:03 PM ELECTRON MICROSCOPIST Hospital Encounter [facility] CAT SCAN [facility] [place] [address] Remi Beckett MD Discharge Disposition: Home or Self Care 07/07/2024 10:00 AM ELECTRON MICROSCOPIST - 07/07/2024 11:22 AM ELECTRON MICROSCOPIST Hospital Encounter [facility] NUCLEAR MEDICINE [address] [place] [phone] Remi Beckett MD Discharge Disposition: Home or Self Care 07/07/2024 Travel 07/06/2024 2:00 PM ELECTRON MICROSCOPIST Hospital Encounter [facility] Cancer Care - Radiation Oncology [address] [place] [address] Marcio Mcintosh MD 07/06/2024 2:00 PM ELECTRON MICROSCOPIST Office Visit [facility] Health Cancer Care - Rad/Onc [address] [place] [address] Marcio Mcintosh MD Cancer, metastatic to bone (HCC) (Primary Dx); Metastasis to bone (HCC); Papillary carcinoma of thyroid (HCC); Thyroid cancer (CMS/HCC); Secondary malignant neoplasm of bone (HCC) 07/06/2024 11:56 AM ELECTRON MICROSCOPIST - 07/06/2024 1:59 PM ELECTRON MICROSCOPIST Hospital Encounter [facility] Health Imaging Services - MRI [address] [place] [address] Marcio Mcintosh MD Radiation Oncology Discharge Disposition: Home or Self Care 07/06/2024 Travel 07/06/2024 Refill [facility] - Hematology/Oncolog y [address] [place] [phone] Remi Beckett MD Refill Request 07/05/2024 Refill [facility] - Hematology/Oncolog y [address] [place] [phone] Remi Beckett MD Refill Request 06/19/2024 Travel 06/15/2024 3:00 PM ELECTRON MICROSCOPIST Office Visit [facility] - Hematology/Oncolog y [address] [place] [phone] Remi Beckett MD Papillary carcinoma of thyroid (HCC) (Primary Dx); Metastasis to bone (HCC); Mucositis due to antineoplastic therapy; Encounter for antineoplastic chemotherapy 06/15/2024 2:36 PM ELECTRON MICROSCOPIST - 06/15/2024 11:59 PM ELECTRON MICROSCOPIST Hospital Encounter [facility] CANCER CARE DRAWSTATION [address] [place] [address], [address] [place] [address] Discharge Disposition: Home or Self Care 06/15/2024 2:20 PM ELECTRON MICROSCOPIST - 06/15/2024 2:35 PM ELECTRON MICROSCOPIST Hospital Encounter [facility] [address] [place] [address] Remi Beckett MD Discharge Disposition: Home or Self Care 06/15/2024 Travel 06/08/2024 Travel 05/24/2024 Orders Only [facility] - Hematology/Oncolog y [address] [place] [address] Darryl العراقي RN 05/24/2024 Travel [...] Recorded Patient Health Questionnaire-2 Score 0 07/06/2024 [facility] [place] [facility] Occupat ional Health - Occupational Stress [...] Comments Blood Pressure 129/57 07/06/2024 1:53 PM ELECTRON MICROSCOPIST Pulse 85 07/06/2024 1:53 PM ELECTRON MICROSCOPIST Temperature 36.4 ??C (97.5 ??F) 07/06/2024 1:53 PM CS T Respiratory Rate 18 07/06/2024 1:53 PM ELECTRON MICROSCOPIST Oxygen Saturation 95% 07/06/2024 1:53 PM ELECTRON MICROSCOPIST Inhaled Oxygen Concentration - - Weight 49.3 kg (108 lb 11.2 oz) 06/15/2024 3:01 PM ELECTRON MICROSCOPIST Height 157.5 cm (5' 2) 03/20/2024 2:39 PM CDT Body Mass Index 19.88 03/20/2024 2:39 PM CDT Plan of Treatment Upcoming Encounters Date Type Department Care Team (Late st Contact Info) Description 08/02/2024 2:20 PM ELECTRON MICROSCOPIST Appointment [facility] [address] [place] [address] 08/02/2024 3:00 PM ELECTRON MICROSCOPIST Office Visit [facility] - Hematology/Oncology [address] [place] [phone] Remi Beckett MD [address] [place] [address] 08/18/2024 1:45 PM ELECTRON MICROSCOPIST Office Visit [facility] - ENT [address] [place] [address] Neri Delgado MD [address] [place] [address] 08/30/2024 2:20 PM ELECTRON MICROSCOPIST Appointment [facility] [address] [place] [phone] Health Maintenance Due Date Last Done Comments [...] of 2) 12/16/2022 10/21/2022 COVID-19 VACCINE ( season) 2024 10/21/2022, 12/08/2021, 12/08/2021, Additional history [...] this topic Medical Devices Implanted Type Area Office Technology Professor Device Identifier Shelf Expiration Date Model / Serial / Lot Savage Bone Void Ca Slf Stimulan Implanted:Qty: 1 on 10/02/2022 by Coy Gómez MD at [facility] N/A: Spine Cervical Biocompstes 04/03/2025 620-005 / / [id number] Description:mixed with 500mg vancomycin powder Screw Set M6 Spne Oc Upr Thor Infnt Implanted:Qty: 11 on 10/02/2022 by Coy Gómez MD at [facility] N/A: Spine Cervical Medtronic Sofamor Danek Spine [id number] / / Donovan Spnl 240mm 3.5mm Std Implanted:Qty: 1 on 10/02/2022 by Coy Gómez MD at [facility] N/A: Spine Cervical Medtronic Inc [id number] / / Savage Bone Void 10ml Dbm Grftn Algrf Ptty Implanted:Qty: 1 on 10/02/2022 by Coy Gómez MD at [facility] N/A: Spine Cervical Medtronic Inc [id number] / / Screw 3.5mm 16mm Ma Spne Bone Implanted:Qty: 4 on 10/02/2022 by Coy Gómez MD at [facility] N/A: Spine Cervical Medtronic Inc [id number] / / Screw 3.5mm 20mm Ma Spne Bone Implanted:Qty: 1 on 10/02/2022 by Coy Gómez MD at [facility] N/A: Spine Cervical Medtronic Inc [id number] / / Screw 3.5mm 18mm Ma Spne Bone Implanted:Qty: 1 on 10/02/2022 by Coy Gómez MD at [facility] N/A: Spine Cervical Medtronic Inc [id number] / / Screw 3.5mm 22mm Ma Spne Bone Implanted:Qty: 1 on 10/02/2022 by Coy Gómez MD at [facility] N/A: Spine Cervical Medtronic Inc [id number] / / Screw 4mm 20mm Ma Spne Bone Implanted:Qty: 1 on 10/02/2022 by Coy Gómez MD at [facility] N/A: Spine Cervical Medtronic Inc [id number] / / Screw 4.5mm 28mm Ma Spne Bone Implanted:Qty: 2 on 10/02/2022 by Coy Gómez MD at [facility] N/A: Spine Cervical Medtronic Inc [id number] / / Screw 4.5mm 32mm Ma Spne Infnt Nonster Implanted:Qty: 1 on 10/02/2022 by Coy Gómez MD at [facility] N/A: Spine Cervical Medtronic Inc [id number] / / Procedures Procedure Name Priority Date/Time Associated Diagnosis Comments NM BONE SCAN WHOLE BODY Routine 07/07/2024 1:44 PM ELECTRON MICROSCOPIST Cancer, metastatic to bone (HCC) CT NECK SOFT TISSUE W CONT Routine 07/07/2024 12:11 PM ELECTRON MICROSCOPIST Papillary carcinoma of thyroid (HCC) CT CHEST ABDOMEN PELVIS W CONT Routine 07/07/2024 12:08 PM ELECTRON MICROSCOPIST Papillary carcinoma of thyroid (HCC) MRI CERVICAL SPINE WWO CONT Routine 07/06/2024 1:17 PM ELECTRON MICROSCOPIST Metastasis to bone (HCC) Secondary malignant neoplasm of bone (HCC) THYROGLOBULIN BY ANTONIETA RFLXED Routine 06/15/2024 2:41 PM ELECTRON MICROSCOPIST Thyroid cancer (HCC) Postoperative hypothyroidism Malignant tumor of thyroid gland (HCC) Cancer, metastatic to bone (HCC) Hypocalcemia Other hypoparathyroidism (HCC) Papillary carcinoma of thyroid (HCC) MAGNESIUM BLOOD STAT 06/15/2024 2:41 PM ELECTRON MICROSCOPIST VITAMIN D 25-HYDROXY MARAL 06/15/2024 2:41 PM ELECTRON MICROSCOPIST PHOSPHORUS BLOOD Routine 06/15/2024 2:41 PM ELECTRON MICROSCOPIST Postoperative hypothyroidism Thyroid cancer (HCC) Hypocalcemia Other hypoparathyroidism (HCC) Malignant tumor of thyroid gland (HCC) Cancer, metastatic to bone (HCC) THYROGLOBULIN REFLEX PROFILE Routine 06/15/2024 2:41 PM ELECTRON MICROSCOPIST Thyroid cancer (HCC) Postoperative hypothyroidism Malignant tumor of thyroid gland (HCC) Cancer, metastatic to bone (HCC) Hypocalcemia Other hypoparathyroidism (HCC) Papillary carcinoma of thyroid (HCC) TSH Routine 06/15/2024 2:41 PM ELECTRON MICROSCOPIST Thyroid cancer (HCC) Postoperative hypothyroidism Malignant tumor of thyroid gland (HCC) Cancer, metastatic to bone (HCC) Hypocalcemia Other hypoparathyroidism (HCC) Papillary carcinoma of thyroid (HCC) COMPREHENSIVE METABOLIC PANEL STAT 06/15/2024 2:41 PM ELECTRON MICROSCOPIST Papillary carcinoma of thyroid (HCC) CBC W AUTO DIFFERENTIAL STAT 06/15/2024 2:41 PM ELECTRON MICROSCOPIST Papillary carcinoma of thyroid (HCC) HIV-1 HIV-2 ANTIBODY + HIV P24 AG PANEL Routine 08/14/2022 3:21 PM ELECTRON MICROSCOPIST Preventative health care SCAN ONLY HIS OPIOID [...] Bone Scan Whole Body (07/07/2024 1:44 PM ELECTRON MICROSCOPIST) Anatomical Region Laterality Modality Abdomen Nuclear Medicine 07/07/2024 10:5 1 AM ELECTRON MICROSCOPIST Impressions 07/07/2024 3:49 PM ELECTRON MICROSCOPIST IMPRESSION: 1. Intense radiotracer uptake within left pelvis, consistent with severe osteoarthritis seen in the prior PET/CT from 02/25/2024. 2. Moderate radiotracer uptake within lower neck anteriorly which may relate to post treatment changes, follow-up is recommended. > Dictated by Daphne Reis MD (Malt Roaster) 07/07/2024 10:51 AM ITiesha DO have personally reviewed and interpreted this examination/study. > Interpreting Provider: Tiesha Sy DO on 07/07/2024 3:49 PM Narrative 07/07/2024 3:49 PM ELECTRON MICROSCOPIST PROCEDURE: ??NM BONE SCAN WHOLE BODY DATE/TIME OF EXAM: ??07/07/2024 10:45 AM CLINICAL INFORMATION: None relevant/not provided if blank. Indication: C79.51: Cancer, metastatic to bone (HCC) HISTORY: A 63-year-old female with metastatic papillary thyroid carcinoma diagnosed in 2020 status post total thyroidectomy, cervical and thoracic spine metastasis status post radiotherapy. Currently on immunotherapy. TECHNIQUE: The patient was injected with 24.9 mCi of fbpefgdmqm22-b MDP IV in the right antecubital fossa. [...] hip joint. There are multiple sites of duje-nz-djhvvpsm increased uptake in the bilateral shoulders and [...] patient was injected with 24.9 mCi of yvlkxnxylr31-n MDPIV in the right antecubital fossa. Anterior [...] hip joint. There are multiple sites of kzng-to-khgiovfs increased uptake in the bilateral shoulders and spine consistent with degenerative disease. IMPRESSION: 1. Intense radiotracer uptake within left pelvis, consistent with severe osteoarthritis seen in the prior PET/CT from 02/25/2024. 2. Moderate radiotracer uptake within lower neck anteriorly which may relate to post treatment changes, follow-up is recommended. > Dictated by Daphne Reis MD (Malt Roaster) 07/07/2024 10:51AM I, Tiesha Sy DO have personally reviewed and interpreted this examination/study. > Interpreting Provider: Tiesha Sy DO on 07/07/2024 3:49 PM Remi Beckett MD NM ORDERABLES * CT Neck Soft Tissue W Cont (07/07/2024 12:11 PM ELECTRON MICROSCOPIST) Anatomical Region Laterality Modality Head Computed Tomogra phy 07/09/2024 9:47 AM ELECTRON MICROSCOPIST Impressions 07/09/2024 10:08 AM ELECTRON MICROSCOPIST IMPRESSION: 1. A 9 x 7 x [...] 07/09/2024 10:08 AM Narrative 07/09/2024 10:08 AM ELECTRON MICROSCOPIST PROCEDURE: ??CT NECK SOFT TISSUE W CONT, DATE/TIME OF EXAM: ??07/07/2024 12:12 PM, LOCATION ??[facility] INDICATION: C73: Papillary carcinoma of thyroid [...] CONT, DATE/TIME OF EXAM: 2:12 PM, LOCATION [facility] INDICATION: C73: Papillary carcinoma of thyroid [...] Abdomen Pelvis W Cont (07/07/2024 12:08 PM ELECTRON MICROSCOPIST) Anatomical Region Laterality Modality Chest, Abdomen, Pelvis Computed Tomography 07/07/2024 1:01 PM ELECTRON MICROSCOPIST Impressions 07/07/2024 4:00 PM ELECTRON MICROSCOPIST Impression: 1.Changes of total thyroidectomy. 2.Minimal enhancement around the gallbladder fundus, this can be seen in adenomyomatosis. Right upper quadrant ultrasound may be obtained for further evaluation if clinically indicated. 3.Partially imaged osseous changes in the lower cervical and upper thoracic spine at site of treated metastasis are better evaluated on MRI from 11/23/2023. > Dictated by Donald NATH, [facility] ??(vice president marketing & development). IVaishali MD have personally reviewed and interpreted this examination/study. > Interpreting Provider: Vaishali Herrera MD on 07/07/2024 4:00 PM Narrative 07/07/2024 4:00 PM ELECTRON MICROSCOPIST PROCEDURE: ??CT CHEST ABDOMEN PELVIS W CONT, DATE/TIME OF EXAM: ??07/07/2024 12:09 PM, LOCATION ??[facility] INDICATION: C73: Papillary carcinoma of thyroid [...] changes of the left hip joint with zkeb-pj-wlcs contact. Partially imaged posterior spinal fusion hardware. Bone changes in the left aspect of partially imaged C7 at the site of treated metastasis. Soft tissues: Normal. Procedure Note Lorena Herrera MD - 07/07/2024 PROCEDURE: CT CHEST ABDOMEN PELVIS W CONT, DATE/TIME OF EXAM: 07/07/2024 12:09 PM, LOCATION [facility] INDICATION: C73: Papillary carcinoma of thyroid [...] osteoarthritic changes ofthe left hip joint with umbi-ln-xfgh contact. Partially imaged posteriorspinal fusion hardware. Bone [...] from 11/23/2023. > Dictated by Donald NATH, [facility] (vice president marketing & development). IVaishali MD have personally reviewed and interpreted this examination/study. > Interpreting Provider: Vaishali Herrera MD on 07/07/2024 4:00 PM Remi Beckett MD CT ORDERABLES * MRI Cervical Spine Wwo Cont (07/06/2024 1:17 PM ELECTRON MICROSCOPIST) Anatomical Region Laterality Modality Spine Magnetic Resonan ce 07/06/2024 3:40 PM ELECTRON MICROSCOPIST Impressions 07/07/2024 6:34 AM ELECTRON MICROSCOPIST IMPRESSION: 1. 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 No definite evidence of severe central canal stenosis or intramedullary tumor is seen. IMPRESSION: Normal cervical spine MRI performed without and with IV contrast. > Interpreting Provider: Primitivo Martin MD on 07/07/2024 6:34 AM Narrative 07/07/2024 6:34 AM ELECTRON MICROSCOPIST PROCEDURE: ??MRI CERVICAL SPINE WWO CONT DATE/TIME [...] * THYROGLOBULIN REFLEX PROFILE (06/15/2024 2:41 PM ELECTRON MICROSCOPIST) Thyroglobulin Antibody <1.0 0.0 - 0.9 IU/mL 06/16/2024 4:09 PM ELECTRON MICROSCOPIST [facility] ([facility]) Comment: Thyroglobulin Antibody measured by [facility] [place] Methodology It should be noted that the presence of thyroglobulin antibodies may not be pathogenic nor diagnostic, especially at very low levels. The assay molder apprentice has found that four percent of individuals without evidence of thyroid disease or autoimmunity will have positive TgAb levels up to 4 IU/mL. Blood BLOOD SPECIMEN / Unknown Lab Venipuncture / Unknown 06/15/2024 2:41 PM ELECTRON MICROSCOPIST 06/15/2024 2:42 PM ELECTRON MICROSCOPIST Narrative [facility] ([facility]) - 06/16/2024 4:09 PM ELECTRON MICROSCOPIST Performed at: ??01 - Lab[address] [place] ??[id number] Buffer Inflated Pad: Oral Melendez PhD, Phone: ??[phone] Yosi Bustamante MD LAB - CHEMISTRY ORD ERABLES Performing Organization Address [facility]/ZIP Co de Phone Number [facility] ([facility]) [address] [place] [address] * (ABNORMAL) THYROGLOBULIN BY ANTONIETA RFLXED (06/15/2024 2:41 PM ELECTRON MICROSCOPIST) Thyroglobulin by ANTONIETA 100.7(H) 1.5 - 38.5 ng/mL 06/16/2024 4:09 PM ELECTRON MICROSCOPIST [facility] ([facility]) Comment: According to [...] Lab Venipuncture / Unknown 06/15/2024 2:41 PM ELECTRON MICROSCOPIST 06/15/2024 2:42 PM ELECTRON MICROSCOPIST Narrative [facility] ([facility]) - 06/16/2024 4:09 PM ELECTRON MICROSCOPIST Performed at: ??01 - [facility] [address] ??[id number] Buffer Inflated Pad: Oral Melendez PhD, Phone: ??[phone] Yosi Bustamante MD LAB - CHEMISTRY ORD ERABLES Performing Organization Address City/[facility]/ZIP Co de Phone Number [facility] ([facility]) [address] [place] [address], [facility] * VITAMIN D 25-HYDROXY (06/15/2024 2:41 PM ELECTRON MICROSCOPIST) Vitamin D, 25 Hydroxy 47.3 30.0 - 80.0 ng/mL 06/15/2024 3:38 PM ELECTRON MICROSCOPIST [facility] Comment: The recommendations for [...] Lab Venipuncture / Unknown 06/15/2024 2:41 PM ELECTRON MICROSCOPIST 06/15/2024 2:47 PM ELECTRON MICROSCOPIST Remi Beckett MD LAB - CHEMISTRY ORDERABLES Performing Organization Address [facility]/State/[facility] Co de Phone Number [facility] [address] [place] [phone], [facility] [phone] * (ABNORMAL) CBC WITH DIFFERENTIAL (06/15/2024 2:41 PM ELECTRON MICROSCOPIST) [facility] WBC 9.8 4.0 - 10.7 x10E9/L 06/15/2024 [...] Lab Venipuncture / Unknown 06/15/2024 2:41 PM ELECTRON MICROSCOPIST 06/15/2024 2:47 PM ELECTRON MICROSCOPIST Remi Beckett MD LAB - HEMATOLOGY ORDERABLES [facility] [address] [place] [address], [facility] [phone] * (ABNORMAL) COMPREHENSIVE METABOLIC PANEL (06/15/2024 2:41 PM ELECTRON MICROSCOPIST) BUN 28(H) 7 - 26 mg/dL 06/15/2024 [...] 33(H) 7 - 23 06/15/2024 3:20 PM ELECTRON MICROSCOPIST [facility] Osmolality Calculated 292 275 - 295 mOsm/kg 06/15/2024 3:20 PM [facility] Albumin/Globulin Ratio 1.0(L) 1.1 - 2.3 06/15/2024 3:20 PM ELECTRON MICROSCOPIST [facility] eGFR by CKD-EPI 75(L) >=90 mL/min/1.7 3 m2 06/15/2024 3:20 PM ELECTRON MICROSCOPIST [facility] Blood BLOOD SPECIMEN / Unknown Lab Venipuncture / Unknown 06/15/2024 2:41 PM ELECTRON MICROSCOPIST 06/15/2024 2:47 PM ELECTRON MICROSCOPIST Remi Beckett MD LAB - CHEMISTRY ORDERABLES Performing Organization Address City/[facility]/ZIP Co de Phone Number [address] [address], [facility] [phone] * (ABNORMAL) PHOSPHORUS BLOOD (06/15/2024 2:41 PM ELECTRON MICROSCOPIST) Phosphorus 6.5(H) 2.9 - 5.1 mg/dL 06/15/2024 3:20 PM ELECTRON MICROSCOPIST [facility] Blood BLOOD SPECIMEN / Unknown Lab Venipuncture / Unknown 06/15/2024 2:41 PM ELECTRON MICROSCOPIST 06/15/2024 2:47 PM ELECTRON MICROSCOPIST Yosi Bustamante MD LAB - CHEMISTRY ORD ERABLES [address] [address], [place] [phone] * MAGNESIUM BLOOD (06/15/2024 2:41 PM ELECTRON MICROSCOPIST) Magnesium 1.7 1.6 - 2.6 mg/dL 06/15/2024 3:20 PM ELECTRON MICROSCOPIST [facility] Blood BLOOD SPECIMEN / Unknown Lab Venipuncture / Unknown 06/15/2024 2:41 PM ELECTRON MICROSCOPIST 06/15/2024 2:47 PM ELECTRON MICROSCOPIST Remi Beckett MD LAB - CHEMISTRY ORDERABLES Performing Organization Address [facility]/ZIP Co de Phone Number [address] [address], [facility] [phone] * (ABNORMAL) TSH (06/15/2024 2:41 PM ELECTRON MICROSCOPIST) Pathologist [facility] TSH 0.029(L) 0.350 - 4.940 uIU/mL 06/15/2024 3:38 PM ELECTRON MICROSCOPIST [facility] Blood BLOOD SPECIMEN / Unknown Lab Venipuncture / Unknown 06/15/2024 2:41 PM ELECTRON MICROSCOPIST 06/15/2024 2:47 PM ELECTRON MICROSCOPIST Yosi uBstamante MD LAB - CHEMISTRY ORD ERABLES Performing Organization Address [facility] Co de Phone Number [address] [address], [facility] [phone] * HIV-1 HIV-2 ANTIBODY + HIV P24 AG PANEL (New on 11/18) (08/14/2022 3:21 PM ELECTRON MICROSCOPIST) [facility] HIV Antigen/Antibod y 1 & 2 Non-reacti ve Non-react oswaldo 08/14/2022 4:18 PM ELECTRON MICROSCOPIST [facility] Comment:No Laboratory eviden ce of HIV infection. Blood BLOOD SPECIMEN / Unknown Lab Venipuncture / Unknown 08/14/2022 3:21 PM ELECTRON MICROSCOPIST 08/14/2022 3:33 PM ELECTRON MICROSCOPIST Adriana Adams DO LAB - CHEMISTRY ORDE OWEN Performing Organization Address City/[facility]/ZIP Co de Phone Number [address] [address], [facility] [phone] * SCAN ONLY HIS OPIOID MED AGREEMENT (11/04/2020) Historical Provider SCANNING ONLY * HEPATITIS C AB SCREEN RFLX NAAT QUANT (03/07/2020 3:19 PM CDT) Pathologist [facility] Hepatitis C Antibody Non-react oswaldo Non-reac tive 03/07/2020 4:28 PM CDT [facility] Comment:Hepatitis C Antibody screen indicates no serologic evidence of past or current infection with Hepatitis C Virus. Patients with unexplained liver disease who are immunocompromised or suspected of having acute Hepatitis C infection may benefit from Nucleic Acid Test (MICAHEL) for Hepatitis C Viral RNA to confirm Hepatitis C status. Blood BLOOD SPECIMEN / Unknown Lab Venipuncture / Unknown 03/07/2020 3:19 PM CDT 03/07/2020 3:43 PM CDT Marylu Marie DO LAB - CHEMISTRY ORDE OWEN Performing Organization Address City/[facility]/ZIP Co de Phone Number [facility] [address] [place] [address], [facility] [phone] * HPV DETECTION HIGH RISK LEE (11/23/2019 10:00 AM CDT) High Risk Human Papilloma Result Not Detected Not Detected 11/28/2019 3:43 PM CDT [facility] High Risk Human Papilloma Interp 11/28/2019 3:43 PM CDT [facility] Comment:High Risk Human Taurus lloma Virus was Not Detected. Pathology/Cytolo gy MISCELLANEOUS SAMPLES / Unknown 11/23/2019 10:00 AM CDT 11/24/2019 11:39 AM CDT Narrative [facility] - 11/28/2019 3:43 PM CDT [...] - MICROB IOLOGY ORDERABLES Performing Organization Address City/[facility]/ZIP Co de Phone Number [facility] [address] [place], [place] [address] [place] [address] from Last 3 Months or Most Recently Relevant to Health Maintenance Advance Directives * Full Code (Latest Code Status on File) Date Activated Date Inactivated Comments 10/02/2022 10:55 AM 10/07/2022 1:12 PM * Full Code Date Activated Date Inactivated Comments 08/19/2020 4:54 PM 08/29/2020 12:30 PM Care Teams Brazing Furnace Operator Relationship Specialty Start Date End Date Yaya Villatoro MD [address] [facility] [address] [place] [phone] PCP - General Internal Medicine 05/04/23 Joseph Manzanares MD [address] [place] [phone] Internal Medicine 04/21/23
--- OUTSIDE RECORDS SUMMARY | 2024-07-26 08:22 | XMS_ITS | Encounter Summary ---
Author Organization [facility] Health Address [address] [facility] [place] [address] Care Team Providers Care Mounter Smoking Pipe Name Role Phone Joseph Manzanares MD Unavailable Yaya Villatoro MD Primary Care Provider +1- [phone] Reason for Visit * Radiology Services (Routine) - Closed Specialty Diagnoses / Procedures Referred By Contac t Referred To Contact Hematology-Oncology Diagnoses Cancer, metastatic to bone (HCC) Procedures NM Bone Scan Whole Body Remi Beckett MD [address] [place] [address] Referral ID Status Reason Start Date Expiration Date Visits Re quested Visits Authorized [id number] Closed 05/29/2024 05/29/2025 1 1 Encounter Details Date Type Department Care Team (Latest Contact Info) Description 07/07/2024 1:04 PM ANIMAL CARETAKER - 07/07/2024 11:59 PM [facility] Hospital Encounter [facility] NUCLEAR MEDICINE [address] [place] [phone] Remi Beckett MD [address] [place] [address] Discharge Disposition: Home or Self [...] Recorded Patient Health Questionnaire-2 Score 0 07/06/2024 [facility] [...] 2 times daily 08/28/2022 calcium 500 mg tabletIndications:Fortine stasis to bone (HCC) Take 1 (one) [...] naloxone HCl (Narcan) 4 MG/0.1ML nasal spray [place] 1 (one) spray into the nose as [...] vitamin D3 (Cholecalciferol) 10 MCG (400 UNIT) tabletIndications:Fortine stasis to bone (HCC) Take 1 (one) tablet by mouth once daily 30 tablet 06/15/2024 documented as of this encounter Plan of Treatment Upcoming Encounters Date Type Department Care Team (Late st Contact Info) Description 08/02/2024 2:20 PM ANIMAL CARETAKER Appointment [facility] INFUSION CENTER [address] [place] [address] 08/02/2024 3:00 PM ANIMAL CARETAKER Office Visit [facility] - Hematology/Oncology [address] [place] [phone] Remi Beckett MD [address] [place] [phone] 08/18/2024 1:45 PM ANIMAL CARETAKER Office Visit [facility] - ENT [address] [place] [phone] Neri Delgado MD [address] [place] [address] 08/30/2024 2:20 PM ANIMAL CARETAKER Appointment [facility] [address] [place] [address] documented as of this encounter Procedures Procedure Name Priority Date/Time Associated Diagnosis Comments NM BONE SCAN WHOLE BODY Routine 07/07/2024 1:44 PM ANIMAL CARETAKER Cancer, metastatic to bone (HCC) documented in this encounter Results * NM Bone Scan Whole Body (07/07/2024 1:44 PM ANIMAL CARETAKER) Anatomical Region Laterality Modality Abdomen Nuclear Medicine 07/07/2024 10:5 1 AM ANIMAL CARETAKER Impressions 07/07/2024 3:49 PM ANIMAL CARETAKER IMPRESSION: 1. Intense radiotracer uptake within left pelvis, consistent with severe osteoarthritis seen in the prior PET/CT from 02/25/2024. 2. Moderate radiotracer uptake within lower neck anteriorly which may relate to post treatment changes, follow-up is recommended. > Dictated by Daphne Reis MD (Canteen Attendant) 07/07/2024 10:51 AM ITiesha DO have personally reviewed and interpreted this examination/study. > Interpreting Provider: Tiesha Sy DO on 07/07/2024 3:49 PM Narrative 07/07/2024 3:49 PM ANIMAL CARETAKER PROCEDURE: ??NM BONE SCAN WHOLE BODY DATE/TIME OF EXAM: ??07/07/2024 10:45 AM CLINICAL INFORMATION: None relevant/not provided if blank. Indication: C79.51: Cancer, metastatic to bone (HCC) HISTORY: A 63-year-old female with metastatic papillary thyroid carcinoma diagnosed in 2020 status post total thyroidectomy, cervical and thoracic spine metastasis status post radiotherapy. Currently on immunotherapy. TECHNIQUE: The patient was injected with 24.9 mCi of tsnulizymg72-k MDP IV in the right antecubital fossa. [...] hip joint. There are multiple sites of bdua-qb-vjpoyzjy increased uptake in the bilateral shoulders and [...] patient was injected with 24.9 mCi of kypyzwgbow37-p MDPIV in the right antecubital fossa. Anterior [...] hip joint. There are multiple sites of oybd-bg-qrwwffwo increased uptake in the bilateral shoulders and spine consistent with degenerative disease. IMPRESSION: 1. Intense radiotracer uptake within left pelvis, consistent with severe osteoarthritis seen in the prior PET/CT from 02/25/2024. 2. Moderate radiotracer uptake within lower neck anteriorly which may relate to post treatment changes, follow-up is recommended. > Dictated by Daphne Reis MD (Canteen Attendant) 07/07/2024 10:51AM I, Tiesha Sy DO have personally reviewed and interpreted this examination/study. > Interpreting Provider: Tiesha Sy DO on 07/07/2024 3:49 PM Remi Beckett MD NM ORDERABLES documented in this encounter Visit Diagnoses Not on filedocumented in this encounter Care Teams Mounter Smoking Pipe Relationship Specialty Start Date End Date Yaya Villatoro MD [address] [phone] PCP - General Internal Medicine 05/04/23 Joseph Manzanares MD [address] [place] [phone] Internal Medicine 04/21/23 documented as of this encounter
--- OUTSIDE RECORDS SUMMARY | 2024-07-26 08:22 | XMS_ITS | Encounter Summary ---
Author Organization [facility] Health Address [address] [place] [address] Care Team Providers Care Cutter Down Name Role Phone Joseph Manzanares MD Unavailable Yaya Villatoro MD Primary Care Provider +1- [phone] Encounter Details Date Type Department Care Team [...] Patient Health Questionnaire-2 Score 0 07/06/2024 [facility] of Occupat ional [...] st Contact Info) Description 08/02/2024 2:20 PM INTERIOR DESIGN CONSULTANT Appointment [facility] INFUSION CENTER [address] [place] [address] 08/02/2024 3:00 PM INTERIOR DESIGN CONSULTANT Office Visit [facility] - Hematology/Oncology [address] [place] [phone] Remi Beckett MD [address] [place] [phone] 08/18/2024 1:45 PM INTERIOR DESIGN CONSULTANT Office Visit [facility] - ENT [address] [place] [phone] Neri Delgado MD [address] [place] [address] 08/30/2024 2:20 PM INTERIOR DESIGN CONSULTANT Appointment [facility] [address] [place] [address] documented as of this encounter Visit Diagnoses Not on filedocumented in this encounter Care Teams Cutter Down Relationship Specialty Start Date End Date Yaya Villatoro MD [address] [place] [phone] PCP - General Internal Medicine 05/04/23 Joseph Manzanares MD [address] [place] [phone] Internal Medicine 04/21/23 documented as of this encounter
--- OUTSIDE RECORDS SUMMARY | 2024-07-26 08:23 | XMS_ITS | Encounter Summary ---
Author Organization [facility] Health Address [address] [address] Care Team Providers Care Cash Application Clerk Name Role Phone Joseph Manzanares MD Unavailable Yaya Villatoro MD Primary Care Provider +1- [phone] Encounter Details Date Type Department Care Team [...] Date Recorded PHQ2 TOTAL SCORE 1 11/25/2022 [facility] - Occupational [...] st Contact Info) Description 08/02/2024 2:20 PM HEALTH CARE ANALYST Appointment [facility]ION CENTER [address] [place] [address] 08/02/2024 3:00 PM HEALTH CARE ANALYST Office Visit [facility] - Hematology/Oncology [address] [place] [phone] Remi Beckett MD [address] [place] [phone] 08/18/2024 1:45 PM HEALTH CARE ANALYST Office Visit [facility] - ENT [address] [place] [phone] Neri Delgado MD [address] [place] [address] 08/30/2024 2:20 PM HEALTH CARE ANALYST Appointment [facility] [address] [place] [address] documented as of this encounter Visit Diagnoses Not on filedocumented in this encounter Care Teams Cash Application Clerk Relationship Specialty Start Date End Date Yaya Villatoro MD [address] [place] [phone] PCP - General Internal Medicine 05/04/23 Joseph Manzanares MD [address] [place] [phone] Internal Medicine 04/21/23 documented as of this encounter
--- OUTSIDE RECORDS SUMMARY | 2024-07-26 08:23 | XMS_ITS | Encounter Summary ---
Author Organization [facility] Address [address] [place] [address] Care Team Providers Care Disaster Recovery Consultant Name Role Phone Joseph Manzanares MD Unavailable Yaya Villatoro MD Primary Care Provider [phone]- [phone] Reason for Visit * Oncology Prior Authorization (Routine) - Authorized Specialty Diagnoses / Procedures Referred By Contac t Referred To Contact Diagnoses Metastasis to bone (HCC) Procedures SC INJECTION DENOSUMAB 1 MG Remi Beckett MD [address] [place] [phone] [facility] [address] [place] [address] Referral ID Status Reason Start Date Expiration Date V isits Requested Visits Authorized [id number] Authorized 04/21/2024 10/22/2024 6 6 Encounter Details Date Type Department Care Team (Latest Contact Info) Description 06/15/2024 2:20 PM ARMOR SENIOR SERGEANT - 06/15/2024 2:35 PM ARMOR SENIOR SERGEANT Hospital Encounter [facility] [address] [place] [address] Remi Beckett MD [facility] [place] [phone] Discharge Disposition: Home or Self [...] HCl (Narcan) 4 MG/0.1ML nasal spray [place] 1 (one) spray into the nose as [...] st Contact Info) Description 08/02/2024 2:20 PM ARMOR SENIOR SERGEANT Appointment [facility] [address] [place] [address] 08/02/2024 3:00 PM ARMOR SENIOR SERGEANT Office Visit [facility] - Hematology/Oncology [address] [place] [phone] Remi Beckett MD [address] [place] [phone] 08/18/2024 1:45 PM ARMOR SENIOR SERGEANT Office Visit [facility] - ENT [address] [place] [phone] Neri Delgado MD [address] [place] [phone] 08/30/2024 2:20 PM ARMOR SENIOR SERGEANT Appointment [facility] [address] [place] [address] documented as of this encounter Procedures Procedure Name Priority Date/Time Associated Diagnosis Comments VITAMIN D 25-HYDROXY MARAL 06/15/2024 2:41 PM ARMOR SENIOR SERGEANT MAGNESIUM BLOOD STAT 06/15/2024 2:41 PM ARMOR SENIOR SERGEANT documented in this encounter Results * MAGNESIUM BLOOD (06/15/2024 2:41 PM ARMOR SENIOR SERGEANT) Magnesium 1.7 1.6 - 2.6 mg/dL 06/15/2024 3:20 [address] ARMOR SENIOR SERGEANT [facility] Blood BLOOD SPECIMEN / Unknown Lab Venipuncture / Unknown 06/15/2024 2:41 PM ARMOR SENIOR SERGEANT 06/15/2024 2:47 PM ARMOR SENIOR SERGEANT Remi Beckett MD LAB - CHEMISTRY ORDERABLES Performing Organization Address City/[facility]/ZIP Co de Phone Number [facility] [address] [place] [address], [place] [phone] * VITAMIN D 25-HYDROXY (06/15/2024 2:41 PM ARMOR SENIOR SERGEANT) Vitamin D, 25 Hydroxy 47.3 30.0 - 80.0 ng/mL 06/15/2024 3:38 PM ARMOR SENIOR SERGEANT [facility] Comment: The recommendations for 25-Hydroxy [...] Lab Venipuncture / Unknown 06/15/2024 2:41 PM ARMOR SENIOR SERGEANT 06/15/2024 2:47 PM ARMOR SENIOR SERGEANT Remi Beckett MD LAB - CHEMISTRY ORDERABLES Performing Organization Address [facility] Co de Phone Number [facility] [address] [place] [address], [place] [phone] documented in this encounter Visit Diagnoses Diagnosis Metastasis to bone (HCC)- Primary Secondary malignant neoplasm of bone and bone marrow documented in this encounter Care Teams Disaster Recovery Consultant Relationship Specialty Start Date End Date Yaya Villatoro MD [address] [phone] PCP - General Internal Medicine 05/04/23 Joseph Manzanares MD [address] [place] [phone] Internal Medicine 04/21/23 documented as of this encounter
--- OUTSIDE RECORDS SUMMARY | 2024-07-26 08:23 | XMS_ITS | Encounter Summary ---
Author Organization [facility] Health Address [address] [facility] [place] [address] Care Team Providers Care Plate Colorer Name Role Phone Joseph Manzanares MD Unavailable Yaya Villatoro MD Primary Care Provider +1- [phone] Encounter Details Date Type Department Care Team (Late st Contact Info) Description 05/24/2024 Orders Only [facility] - Hematology/Oncology [address] [place] [phone] Darryl العراقي, JOSY Social History Tobacco Use [...] 11/25/2022 [facility] - Occupational Stress Questionnaire Answer Date [...] st Contact Info) Description 08/02/2024 2:20 PM HOUSE WORKER GENERAL Appointment [facility] [address] [place] [address] 08/02/2024 3:00 PM HOUSE WORKER GENERAL Office Visit [facility] - Hematology/Oncology [address] [place] [phone] Remi Beckett MD [address] [place] [phone] 08/18/2024 1:45 PM HOUSE WORKER GENERAL Office Visit [facility] - ENT [address] [place] [phone] Neri Delgado MD [address] [place] [address] 08/30/2024 2:20 PM HOUSE WORKER GENERAL Appointment [facility] [address] [place] [address] documented as of this encounter Visit Diagnoses Not on filedocumented in this encounter Care Teams Plate Colorer Relationship Specialty Start Date End Date Yaya Villatoro MD [address] [place] [phone] PCP - General Internal Medicine 05/04/23 Joseph Manzanares MD [address] [place] [phone] Internal Medicine 04/21/23 documented as of this encounter
--- OUTSIDE RECORDS SUMMARY | 2024-07-26 08:23 | XMS_ITS | Encounter Summary ---
Author Organization [facility] Health Address [address] [facility] [place] [address] Care Team Providers Care Cardiac Cath Lab Radiology Technologist Name Role Phone Joseph Manzanares MD Unavailable Yaya Villatoro MD Primary Care Provider [phone]- [phone] Encounter Details Date Type Department Care Team (Latest Contact Info) Description 06/15/2024 2:36 PM CORPORATE REAL ESTATE MANAGER - 06/15/2024 11:59 PM [facility] Hospital Encounter [facility] [address] [facility], 2nd [place] [address] Discharge Disposition: Home or Self Care Social [...] 2 times daily 08/28/2022 calcium 500 mg tabletIndications:Roberta stasis to bone (HCC) Take 1 (one) [...] naloxone HCl (Narcan) 4 MG/0.1ML nasal spray [place] 1 (one) spray into the nose as [...] vitamin D3 (Cholecalciferol) 10 MCG (400 UNIT) tabletIndications:Roberta stasis to bone (HCC) Take 1 (one) [...] st Contact Info) Description 08/02/2024 2:20 PM CORPORATE REAL ESTATE MANAGER Appointment [facility] [address] [place] [address] 08/02/2024 3:00 PM CORPORATE REAL ESTATE MANAGER Office Visit [facility] - Hematology/Oncology [address] [place] [address] [phone] Remi Beckett MD [address] [place] [address] [phone] 08/18/2024 1:45 PM CORPORATE REAL ESTATE MANAGER Office Visit [facility] - ENT [address] [place] [address] [phone] Neri Delgado MD [address] [place] [phone] 08/30/2024 2:20 PM CORPORATE REAL ESTATE MANAGER Appointment [facility] [address] [place] [address] documented as of this encounter Procedures Procedure Name Priority Date/Time Associated Diagnosis Comments THYROGLOBULIN REFLEX PROFILE Routine 06/15/2024 2:41 PM CORPORATE REAL ESTATE MANAGER Thyroid cancer (HCC) Postoperative hypothyroidism Malignant tumor of thyroid gland (HCC) Cancer, metastatic to bone (HCC) Hypocalcemia Other hypoparathyroidism (HCC) Papillary carcinoma of thyroid (HCC) THYROGLOBULIN BY ANTONIETA RFLXED Routine 06/15/2024 2:41 PM CORPORATE REAL ESTATE MANAGER Thyroid cancer (HCC) Postoperative hypothyroidism Malignant tumor of thyroid gland (HCC) Cancer, metastatic to bone (HCC) Hypocalcemia Other hypoparathyroidism (HCC) Papillary carcinoma of thyroid (HCC) CBC W AUTO DIFFERENTIAL STAT 06/15/2024 2:41 PM CORPORATE REAL ESTATE MANAGER Papillary carcinoma of thyroid (HCC) COMPREHENSIVE METABOLIC PANEL STAT 06/15/2024 2:41 PM CORPORATE REAL ESTATE MANAGER Papillary carcinoma of thyroid (HCC) PHOSPHORUS BLOOD Routine 06/15/2024 2:41 PM CORPORATE REAL ESTATE MANAGER Postoperative hypothyroidism Thyroid cancer (HCC) Hypocalcemia Other hypoparathyroidism (HCC) Malignant tumor of thyroid gland (HCC) Cancer, metastatic to bone (HCC) TSH Routine 06/15/2024 2:41 PM CORPORATE REAL ESTATE MANAGER Thyroid cancer (HCC) Postoperative hypothyroidism Malignant tumor of thyroid gland (HCC) Cancer, metastatic to bone (HCC) Hypocalcemia Other hypoparathyroidism (HCC) Papillary carcinoma of thyroid (HCC) documented in this encounter Results * (ABNORMAL) THYROGLOBULIN BY ANTONIETA RFLXED (06/15/2024 2:41 PM CORPORATE REAL ESTATE MANAGER) Thyroglobulin by ANTONIETA 100.7(H) 1.5 - 38.5 ng/mL 06/16/2024 4:09 PM CORPORATE REAL ESTATE MANAGER [facility] ([facility]) Comment: According to the National Academy [...] is 0.1 ng/mL Thyroglobulin measured by [employer] [place] Immunometric Assay Blood BLOOD SPECIMEN / Unknown Lab Venipuncture / Unknown 06/15/2024 2:41 PM CORPORATE REAL ESTATE MANAGER 06/15/2024 2:42 PM CORPORATE REAL ESTATE MANAGER Narrative [facility] ([facility]) - 06/16/2024 4:09 PM CORPORATE REAL ESTATE MANAGER Performed at: ??01 - [facility] [address] [place], [place] ??[id number] [employer]: Oral Melendez PhD, Phone: ??[phone] Yosi Bustamante MD LAB - CHEMISTRY ORD ERABLES [facility]) [address] [place] [address] * (ABNORMAL) PHOSPHORUS BLOOD (06/15/2024 2:41 PM CORPORATE REAL ESTATE MANAGER) Phosphorus 6.5(H) 2.9 - 5.1 mg/dL 06/15/2024 3:20 PM CORPORATE REAL ESTATE MANAGER [facility] Blood BLOOD SPECIMEN / Unknown Lab Venipuncture / Unknown 06/15/2024 2:41 PM CORPORATE REAL ESTATE MANAGER 06/15/2024 2:47 PM CORPORATE REAL ESTATE MANAGER Yosi Bustamante MD LAB - CHEMISTRY ORD ERABLES Performing Organization Address City/[facility]/ZIP Co de Phone Number [facility] [address] [place] [address], [facility] [phone] * THYROGLOBULIN REFLEX PROFILE (06/15/2024 2:41 PM CORPORATE REAL ESTATE MANAGER) Thyroglobulin Antibody <1.0 0.0 - 0.9 IU/mL 06/16/2024 4:09 PM CORPORATE REAL ESTATE MANAGER [facility] ([facility]) Comment: Thyroglobulin Antibody measured by [email or web address] Methodology It should be noted that the presence of thyroglobulin antibodies may not be pathogenic nor diagnostic, especially at very low levels. The assay unloading checker has found that four percent of individuals without evidence of thyroid disease or autoimmunity will have positive TgAb levels up to 4 IU/mL. Blood BLOOD SPECIMEN / Unknown Lab Venipuncture / Unknown 06/15/2024 2:41 PM CORPORATE REAL ESTATE MANAGER 06/15/2024 2:42 PM CORPORATE REAL ESTATE MANAGER Narrative [facility] ([facility]) - 06/16/2024 4:09 PM CORPORATE REAL ESTATE MANAGER Performed at: ??01 - [facility] [address] [place], [place] ??[id number] [employer]: Oral Melendez PhD, Phone: ??[phone] Yosi Bustamante MD LAB - CHEMISTRY ORD ERABLES Performing Organization Address City/[facility]/ZIP Co de Phone Number [facility] ([facility]) [address] [place] [address] * (ABNORMAL) TSH (06/15/2024 2:41 PM CORPORATE REAL ESTATE MANAGER) TSH 0.029(L) 0.350 - 4.940 uIU/mL 06/15/2024 3:38 PM CORPORATE REAL ESTATE MANAGER [facility] Blood BLOOD SPECIMEN / Unknown Lab Venipuncture / Unknown 06/15/2024 2:41 PM CORPORATE REAL ESTATE MANAGER 06/15/2024 2:47 PM CORPORATE REAL ESTATE MANAGER Yosi Bustamante MD LAB - CHEMISTRY ORD ERABLES [facility] [address] [place] [address], [facility] [phone] * (ABNORMAL) COMPREHENSIVE METABOLIC PANEL (06/15/2024 2:41 PM CORPORATE REAL ESTATE MANAGER) BUN 28(H) 7 - 26 mg/dL 06/15/2024 3:20 PM [facility] Creatinine 0.86 0.56 - 0.96 mg/dL 06/15/2024 3:20 PM [facility] Sodium 138 136 - 145 mmol/L 06/15/2024 3:20 PM [facility] Potassium 4.1 3.5 - 4.5 mmol/L 06/15/2024 3:20 PM [facility] Chloride 103 98 - 107 mmol/L 06/15/2024 3:20 PM [facility] CO2 22 22 - 29 mmol/L 06/15/2024 3:20 PM [facility] Glucose 104(H) 70 - 99 mg/dL 06/15/2024 3:20 PM [facility] Calcium 10.2 8.4 - 10.2 mg/dL 06/15/2024 3:20 PM [facility] Protein Total 8.1 6.0 - 8.3 g/dL 06/15/2024 3:20 PM [facility] Albumin 4.0 3.4 - 5.0 g/dL 06/15/2024 3:20 PM [facility] Bilirubin Total 0.3 0.2 - 1.2 mg/dL 06/15/2024 3:20 PM [facility] Alkaline Phosphatase 78 40 - 150 U/L 06/15/2024 3:20 PM [facility] ALT 13 5 - 55 U/L 06/15/2024 3:20 PM [facility] AST 16 5 - 34 U/L 06/15/2024 3:20 PM [facility] Anion Gap 13 6 - 16 06/15/2024 3:20 PM [facility] BUN/Creatinine Ratio 33(H) 7 - 23 06/15/2024 3:20 PM [facility] Osmolality Calculated 292 275 - 295 mOsm/kg 06/15/2024 3:20 PM [facility] Albumin/Globulin Ratio 1.0(L) 1.1 - 2.3 06/15/2024 3:20 PM [facility] eGFR by CKD-EPI 75(L) >=90 mL/min/1.7 3 m2 06/15/2024 3:20 PM [facility] Blood BLOOD SPECIMEN / Unknown Lab Venipuncture / Unknown 06/15/2024 2:41 PM CORPORATE REAL ESTATE MANAGER 06/15/2024 2:47 PM CORPORATE REAL ESTATE MANAGER Remi Beckett MD LAB - CHEMISTRY ORDERABLES [facility] [address] [place] [address], [facility] [phone] * (ABNORMAL) CBC WITH DIFFERENTIAL (06/15/2024 2:41 PM CORPORATE REAL ESTATE MANAGER) WBC 9.8 4.0 - 10.7 x10E9/L 06/15/2024 2:55 PM [facility] RBC Count 5.23(H) 3.90 - 5.20 x10E12/L 06/15/2024 2:55 PM [facility] Hemoglobin 16.0(H) 11.9 - 15.8 g/dL 06/15/2024 2:55 PM [facility] Hematocrit 45.9 34.8 - 46.1 % 06/15/2024 2:55 PM [facility] MCV 87.8 80.0 - 98.0 fL 06/15/2024 2:55 PM [facility] MCH 30.6 26.7 - 33.6 pg 06/15/2024 2:55 PM [facility] MCHC 34.9 31.7 - 36.3 g/dL 06/15/2024 2:55 PM [facility] RDW-CV 13.5 11.3 - 14.8 % 06/15/2024 2:55 PM [facility] Platelet Count 285 150 - 420 x10E9/L 06/15/2024 2:55 PM [facility] MPV 9.5 7.8 - 11.4 fL 06/15/2024 2:55 PM [facility] Neutrophil % 68.5 41.0 - 74.0 % 06/15/2024 2:55 PM [facility] Lymphocyte % 20.6 17.0 - 47.0 % 06/15/2024 2:55 PM [facility] Monocyte % 9.0 3.0 - 11.0 % 06/15/2024 2:55 PM [facility] Eosinophil % 1.2 0.0 - 7.0 % 06/15/2024 2:55 PM [facility] Basophil % 0.5 0.0 - 1.6 % 06/15/2024 2:55 PM [facility] Immature Granulocytes % 0.2 0.0 - 1.0 % 06/15/2024 2:55 PM [facility] Neutrophil Absolute 6.69 1.60 - 7.50 x10E9/L 06/15/2024 2:55 PM [facility] Lymphocyte Absolute 2.01 1.00 - 4.40 x10E9/L 06/15/2024 2:55 PM [facility] Monocyte Absolute 0.88 0.15 - 1.00 x10E9/L 06/15/2024 2:55 PM [facility] Eosinophil Absolute 0.12 0.00 - 0.60 x10E9/L 06/15/2024 2:55 PM [facility] Basophil Absolute 0.05 0.00 - 0.13 x10E9/L 06/15/2024 2:55 PM [facility] Blood BLOOD SPECIMEN / Unknown Lab Venipuncture / Unknown 06/15/2024 2:41 PM CORPORATE REAL ESTATE MANAGER 06/15/2024 2:47 PM CORPORATE REAL ESTATE MANAGER Remi Beckett MD LAB - HEMATOLOGY ORDERABLES [facility] [address] [place] [address], [facility] [phone] documented in this encounter Visit Diagnoses Diagnosis Postoperative hypothyroidism Postsurgical hypothyroidism Thyroid cancer (HCC) Malignant neoplasm of thyroid gland Hypocalcemia Other hypoparathyroidism (HCC) Malignant tumor of thyroid gland (HCC) Malignant neoplasm of thyroid gland Cancer, metastatic to bone (HCC) Secondary malignant neoplasm of bone and bone marrow Papillary carcinoma of thyroid (HCC) Malignant neoplasm of thyroid gland documented in this encounter Care Teams Cardiac Cath Lab Radiology Technologist Relationship Specialty Start Date End Date Yaya Villatoro MD [address] [facility] [address] [place] [phone] PCP - General Internal Medicine 05/04/23 Joseph Manzanares MD [address] [place] [phone] Internal Medicine 04/21/23 documented as of this encounter
--- OUTSIDE RECORDS SUMMARY | 2024-07-26 08:23 | XMS_ITS | Encounter Summary ---
Author Organization [facility] Health Address [address] [facility] [place] [address] Care Team Providers Care Television Installer Helper Name Role Phone Joseph Manzanares MD Unavailable Yaya Villatoro MD Primary Care Provider [phone]- [phone] Reason for Visit * Auth/Cert (Routine) Specialty Diagnoses / Procedures Referred By Contac t Referred To Contact Referral ID Status Reason Start Date Expiration Date Visits Re quested Visits Authorized [id number] 1 1 Encounter Details Date Type Department Care Team (Latest Contact Info) Description 04/17/2024 3:04 PM CDT - 04/17/2024 11:59 PM CDT Hospital Encounter [facility] [address] [facility], 2nd [place] [address] Discharge Disposition: Home or Self Care Social [...] TOTAL SCORE 1 11/25/2022 [facility] of Occupat ional Health - Occupational Stress [...] naloxone HCl (Narcan) 4 MG/0.1ML nasal spray [place] 1 (one) spray into the nose as [...] 01/24/2024 lenvatinib (Lenvima) 10 & 4 MG capsuleIndications:Cristiano rajinder carcinoma of thyroid (HCC) Take one 10 mg capsule and one 4 mg capsule (14 mg total) once daily. 60 Each 2 04/17/2024 documented as of this encounter Plan of Treatment Upcoming Encounters Date Type Department Care Team (Late st Contact Info) Description 08/02/2024 2:20 PM STATE GAME PROTECTOR Appointment [facility] [address] [place] [address] 08/02/2024 3:00 PM STATE GAME PROTECTOR Office Visit [facility] - Hematology/Oncology [address] [place] [phone] Remi Beckett MD [address] [place] [phone] 08/18/2024 1:45 PM STATE GAME PROTECTOR Office Visit [facility] - ENT [address] [place] [phone] Neri Delgado MD [address] [place] [phone] 08/30/2024 2:20 PM STATE GAME PROTECTOR Appointment [facility] [address] [place] [phone] documented as of this encounter Procedures Procedure [...] 4.0 - 10.7 x10E9/L 04/17/2024 3:14 PM [facility] RBC Count 5.28(H) 3.90 - 5.20 x10E12/L 04/17/2024 3:14 PM [facility] Hemoglobin 15.2 11.9 - 15.8 g/dL 04/17/2024 3:14 PM [facility] Hematocrit 44.6 34.8 - 46.1 % 04/17/2024 3:14 PM [facility] MCV 84.5 80.0 - 98.0 fL 04/17/2024 3:14 PM [facility] MCH 28.8 26.7 - 33.6 pg 04/17/2024 3:14 PM [facility] MCHC 34.1 31.7 - 36.3 g/dL 04/17/2024 3:14 PM [facility] RDW-CV 14.6 11.3 - 14.8 % 04/17/2024 3:14 PM [facility] Platelet Count 279 150 - 420 x10E9/L 04/17/2024 3:14 PM [facility] MPV 9.4 7.8 - 11.4 fL 04/17/2024 3:14 PM [facility] Neutrophil % 73.6 41.0 - 74.0 % 04/17/2024 3:14 PM [facility] Lymphocyte % 16.9(L) 17.0 - 47.0 % 04/17/2024 3:14 PM [facility] Monocyte % 7.1 3.0 - 11.0 % 04/17/2024 3:14 PM [facility] Eosinophil % 1.8 0.0 - 7.0 % 04/17/2024 3:14 PM [facility] Basophil % 0.4 0.0 - 1.6 % 04/17/2024 3:14 PM [facility] Immature Granulocytes % 0.2 0.0 - 1.0 % 04/17/2024 3:14 PM [facility] Neutrophil Absolute 7.01 1.60 - 7.50 x10E9/L 04/17/2024 3:14 PM [facility] Lymphocyte Absolute 1.61 1.00 - 4.40 x10E9/L 04/17/2024 3:14 PM [facility] Monocyte Absolute 0.68 0.15 - 1.00 x10E9/L 04/17/2024 3:14 PM [facility] Eosinophil Absolute 0.17 0.00 - 0.60 x10E9/L 04/17/2024 3:14 PM [facility] Basophil Absolute 0.04 0.00 - 0.13 x10E9/L 04/17/2024 3:14 PM [facility] Blood BLOOD SPECIMEN / Unknown Lab Venipuncture / Unknown 04/17/2024 3:07 PM CDT 04/17/2024 3:11 PM T Remi Beckett MD LAB - HEMATOLOGY ORDERABLES [facility] [address] [place] [address], [facility] [phone] * (ABNORMAL) COMPREHENSIVE METABOLIC PANEL (04/17/2024 3:07 PM CDT) BUN 25 7 - 26 mg/dL 04/17/2024 4:02 PM [facility] Creatinine 0.73 0.56 - 0.96 mg/dL 04/17/2024 4:02 PM [facility] Sodium 138 136 - 145 mmol/L 04/17/2024 4:02 PM [facility] Potassium 4.2 3.5 - 4.5 mmol/L 04/17/2024 4:02 PM [facility] Chloride 103 98 - 107 mmol/L 04/17/2024 4:02 PM [facility] CO2 23 22 - 29 mmol/L 04/17/2024 4:02 PM [facility] Glucose 95 70 - 115 mg/dL 04/17/2024 4:02 PM [facility] Calcium 9.4 8.4 - 10.2 mg/dL 04/17/2024 4:02 PM [facility] Protein Total 7.5 6.0 - 8.3 g/dL 04/17/2024 4:02 PM [facility] Albumin 3.8 3.4 - 5.0 g/dL 04/17/2024 4:02 PM [facility] Bilirubin Total 0.3 0.2 - 1.2 mg/dL 04/17/2024 4:02 PM [facility] Alkaline Phosphatase 80 40 - 150 U/L 04/17/2024 4:02 PM [facility] ALT 9 5 - 55 U/L 04/17/2024 4:02 PM [facility] AST 16 5 - 34 U/L 04/17/2024 4:02 PM [facility] Anion Gap 12 6 - 16 04/17/2024 4:02 PM [facility] BUN/Creatinine Ratio 34(H) 7 - 23 04/17/2024 4:02 PM [facility] Osmolality Calculated 290 275 - 295 mOsm/kg 04/17/2024 4:02 PM [facility] Albumin/Globulin Ratio 1.0(L) 1.1 - 2.3 04/17/2024 4:02 PM [facility] eGFR by CKD-EPI >90 >=90 mL/min/1.7 3 m2 04/17/2024 4:02 PM [facility] Blood BLOOD SPECIMEN / Unknown Lab Venipuncture / Unknown 04/17/2024 3:07 PM CDT 04/17/2024 3:11 PM CDT Remi Beckett MD LAB - CHEMISTRY ORDERABLES Performing Organization Address [facility] Co de Phone Number [facility] [address] [place] [address] [phone] documented in this encounter Visit Diagnoses Diagnosis Encounter for antineoplastic chemotherapy Papillary carcinoma of thyroid (HCC) Malignant neoplasm of thyroid gland documented in this encounter Care Teams Television Installer Helper Relationship Specialty Start Date End Date Yaya Villatoro MD [address] [facility] [address] [place] [address] PCP - General Internal Medicine 05/04/23 Joseph Manzanares MD [address] [place] [address] Internal Medicine 04/21/23 documented as of this encounter
--- OUTSIDE RECORDS SUMMARY | 2024-07-26 08:23 | XMS_ITS | Encounter Summary ---
Author Organization [facility] Health Address [address] [facility] [address] Care Team Providers Care Reconciliation Specialist Name Role Phone Joseph Manzanares MD Unavailable Yaya Villatoro MD Primary Care Provider [phone]- [phone] Reason for Visit * Reason Comments Refill Request Encounter Details Date Type Department Care Team (Late st Contact Info) Description 07/05/2024 Refill [facility] - Hematology/Oncology [address] [place] [address] Remi Beckett MD [address] [place] [address] Refill Request Social History Tobacco [...] Recorded Patient Health Questionnaire-2 Score 0 07/06/2024 [facility] [place] of Occupat ional Health - Occupational Stress [...] st Contact Info) Description 08/02/2024 2:20 PM ELEMENTARY READING SPECIALIST Appointment [facility] [address] [place] [address] 08/02/2024 3:00 PM ELEMENTARY READING SPECIALIST Office Visit [facility] - Hematology/Oncology [address] [place] [phone] Remi Beckett MD [address] [place] [phone] 08/18/2024 1:45 PM ELEMENTARY READING SPECIALIST Office Visit [facility] - ENT [address] [place] [phone] Neri Delgado MD [address] [place] [address] 08/30/2024 2:20 PM ELEMENTARY READING SPECIALIST Appointment [facility] [address] [place] [phone] documented as of this encounter Visit Diagnoses Diagnosis Papillary carcinoma of thyroid (HCC) Malignant neoplasm of thyroid gland documented in this encounter Care Teams Reconciliation Specialist Relationship Specialty Start Date End Date Yaya Villatoro MD [address] [place] [phone] PCP - General Internal Medicine 05/04/23 Joseph Manzanares MD [address] [place] [phone] Internal Medicine 04/21/23 documented as of this encounter
--- OUTSIDE RECORDS SUMMARY | 2024-07-26 08:23 | XMS_ITS | Encounter Summary ---
Author Organization [facility] Health Address [address] [facility] [place] [address] Care Team Providers Care Linotype Machinist Name Role Phone Joseph Manzanares MD Unavailable Yaya Villatoro MD Primary Care Provider [phone]- [phone] Encounter Details Date Type Department Care Team (Late st Contact Info) Description 04/21/2024 Orders Only [facility] - Hematology/Oncology [address] [place] [address] Remi Beckett MD [address] [place] [address] Social History Tobacco Use Types [...] st Contact Info) Description 08/02/2024 2:20 PM BILINGUAL MIDDLE SCHOOL TEACHER Appointment [facility] [address] [place] [phone] 08/02/2024 3:00 PM BILINGUAL MIDDLE SCHOOL TEACHER Office Visit [facility] - Hematology/Oncology [address] [place] [phone] Remi Beckett MD [address] [place] [phone] 08/18/2024 1:45 PM BILINGUAL MIDDLE SCHOOL TEACHER Office Visit [facility] - ENT [address] [place] [phone] Neri Delgado MD [address] [place] [address] 08/30/2024 2:20 PM BILINGUAL MIDDLE SCHOOL TEACHER Appointment [facility] [address] [place] [phone] documented as of this encounter Visit Diagnoses Not on filedocumented in this encounter Care Teams Linotype Machinist Relationship Specialty Start Date End Date Yaya Villatoro MD [address] [place] [phone] PCP - General Internal Medicine 05/04/23 Joseph Manzanares MD [address] [place] [phone] Internal Medicine 04/21/23 documented as of this encounter
--- OUTSIDE RECORDS SUMMARY | 2024-07-26 08:23 | XMS_ITS | Encounter Summary ---
Author Organization [facility] Address [address] [facility] [place] [address] Care Team Providers Care Assembler Gold Frame Name Role Phone Joseph Manzanares MD Unavailable Yaya Villatoro MD Primary Care Provider +1- [phone] Reason for Visit * Reason Comments Follow-up Encounter Details Date Type Department Care Team (Late st Contact Info) Description 07/06/2024 2:00 PM EXTERIOR WORK HELPER Office Visit [facility] Cancer Care - Rad/Onc [address] [place] [phone] Marcio Mcintosh MD [address] [place] [address] Cancer, metastatic to bone (HCC) [...] Recorded Patient Health Questionnaire-2 Score 0 07/06/2024 [facility] of Occupat ional Health - Occupational Stress [...] Comments Blood Pressure 129/57 07/06/2024 1:53 PM EXTERIOR WORK HELPER Pulse 85 07/06/2024 1:53 PM EXTERIOR WORK HELPER Temperature 36.4 ??C (97.5 ??F) 07/06/2024 1:53 PM CS T Respiratory Rate 18 07/06/2024 1:53 PM EXTERIOR WORK HELPER Oxygen Saturation 95% 07/06/2024 1:53 PM EXTERIOR WORK HELPER Inhaled Oxygen Concentration - - Weight - [...] Marcio Mcintosh MD - 07/06/2024 2:44 PM EXTERIOR WORK HELPER Latest Reference Range & Units 12/10/23 10:54 03/07/24 12:53 03/20/24 14:41 06/15/24 14:41 TSH 0.350 - 4.940 uIU/mL <0.010 (L) 0.616 0.028 (L) 0.029 (L) Thyroglobulin by ANTONIETA 1.5 - 38.5 ng/mL 352.5 (H) 174.0 (H) 236.1 (H) 100.7 (H) Thyroglobulin Antibody 0.0 - 0.9 IU/mL <1.0 <1.0 <1.0 <1.0 (L): Data is abnormally low (H): Data is abnormally high RIOR WORK HELPER documented in this encounter Progress Notes * Marcio Mcinotsh MD - 07/06/2024 2:43 PM CST Images from the original note were not included. Return Patient Visit Radiation Oncology [facility] ENCOUNTER DATE: 07/06/2024 PATIENT IDENTIFICATION Brisa iKnney 1960 Autopopulated Data Chief Complaint: Chief Complaint [...] 5 fractions ending on 10/22/2023 Referring MD: Filling Station Equipment Mechanic: Yosi Bustamante MD ENT Surgeon: Neri Delgado [...] 5 mm. She underwent palliative radiotherapy with 5259-4286 cGy in 5 fractions delivered via IMRT [...] naloxone HCl (Narcan) 4 MG/0.1ML nasal spray [place] 1 (one) spray into the nose as [...] based finding. We would like to see Brisa in 3 month(s) for a follow up [...] clarification. Marcio Mcintosh MD 07/06/2024 2:43 PM RIOR WORK HELPER documented in this encounter Plan of Treatment Upcoming Encounters Date Type Department Care Team (Late st Contact Info) Description 08/02/2024 2:20 PM EXTERIOR WORK HELPER Appointment [facility] [address] [place] [address] 08/02/2024 3:00 PM EXTERIOR WORK HELPER Office Visit [facility] - Hematology/Oncology [address] [place] [address] Remi Beckett MD [address] [place] [phone] 08/18/2024 1:45 PM EXTERIOR WORK HELPER Office Visit [facility] - ENT [address] [place] [address] Neri Delgado MD [address] [place] [address] 08/30/2024 2:20 PM EXTERIOR WORK HELPER Appointment [facility] [address] [place] [phone] documented as of this encounter Visit Diagnoses [...] marrow documented in this encounter Care Teams Assembler Gold Frame Relationship Specialty Start Date End Date Yaya Villatoro MD [address] [place] [phone] PCP - General Internal Medicine 05/04/23 Joseph Manzanares MD [address] [place] [phone] Internal Medicine 04/21/23 documented as of this encounter
--- OUTSIDE RECORDS SUMMARY | 2024-07-26 08:23 | XMS_ITS | Encounter Summary ---
Author Organization [facility] Address [address] [facility] [place] [address] Care Team Providers Care Manager Test Name Role Phone Joseph Manzanares MD Unavailable Yaya Villatoro MD Primary Care Provider +1- [phone] Reason for Visit * Reason Onset Date Comments Appointment 04/14/2024 See note. Encounter Details Date Type Department Care Team (Late Contact Info) Description 04/14/2024 Telephone [facility] - Hematology/Oncology [address] [place] [address] Remi Beckett MD [address] [place] [address] Appointment (See note. ) Social [...] Date Recorded PHQ2 TOTAL SCORE 1 11/25/2022 [facility] of Occupat ional Health - [...] encounter Miscellaneous Notes * Telephone Encounter - Aminah Chandler - 04/14/2024 3:01 PM CDT Called to confirm appt with Dr. Beckett. Patient did not answer and I could not leave a VM, cause it was full. documented in this encounter Plan of Treatment Upcoming Encounters Date Type Department Care Team (Late st Contact Info) Description 08/02/2024 2:20 PM LUSTERER Appointment [facility] [address] [place] [phone] 08/02/2024 3:00 PM LUSTERER Office Visit [facility] - Hematology/Oncology [address] [place] [phone] Remi Beckett MD [address] [place] [phone] 08/18/2024 1:45 PM LUSTERER Office Visit [facility] - ENT [address] [place] [phone] Neri Delgado MD [address] [place] [address] 08/30/2024 2:20 PM LUSTERER Appointment [facility] [address] [place] [phone] documented as of this encounter Visit Diagnoses Not on filedocumented in this encounter Care Teams Manager Test Relationship Specialty Start Date End Date Yaya Villatoro MD [address] [place] [address] PCP - General Internal Medicine 05/04/23 Joseph Manzanares MD [address] [place] [phone] Internal Medicine 04/21/23 documented as of this encounter
--- OUTSIDE RECORDS SUMMARY | 2024-07-26 08:23 | XMS_ITS | Encounter Summary ---
Author Organization [facility] Address [address] [place] [address] Care Team Providers Care Prosthetics Assistant Name Role Phone Joseph Manzanares MD Unavailable Yaya Villatoro MD Primary Care Provider +1- [phone] Encounter Details Date Type Department Care Team [...] st Contact Info) Description 08/02/2024 2:20 PM DIE DEVELOPER Appointment [facility] [address] [place] [address] 08/02/2024 3:00 PM DIE DEVELOPER Office Visit [facility] - Hematology/Oncology [address] [place] [phone] Remi Beckett MD [address] [place] [phone] 08/18/2024 1:45 PM DIE DEVELOPER Office Visit [facility] - ENT [address] [place] [phone] Neri Delgado MD [address] [place] [address] 08/30/2024 2:20 PM DIE DEVELOPER Appointment [facility] [address] [place] [phone] documented as of this encounter Visit Diagnoses Not on filedocumented in this encounter Care Teams Prosthetics Assistant Relationship Specialty Start Date End Date Yaya Villatoro MD [address] [place] [phone] PCP - General Internal Medicine 05/04/23 Joseph Manzanares MD [address] [place] [phone] Internal Medicine 04/21/23 documented as of this encounter
--- OUTSIDE RECORDS SUMMARY | 2024-07-26 08:23 | XMS_ITS | Encounter Summary ---
Author Organization [facility] Address [address] [facility] [place] [address] Care Team Providers Care Temper Mill Operator Name Role Phone Joseph Manzanares MD Unavailable Yaya Villatoro MD Primary Care Provider +1- [phone] Reason for Visit * Consult, Test & Treat (Routine) - Pending Review Specialty Diagnoses / Procedures Referred By Contricardo t Referred To Contact Hematology and Oncology / Oncology-Medical Diagnoses Secondary malignant neoplasm of bone (HCC) Yaya Villatoro MD [address] [phone] Remi Beckett MD [address] [place] [address] Referral ID Status Reason Start Date Expiration Date V isits Requested Visits Authorized [id number] Pending Review 06/13/2024 12/12/2024 1 1 Encounter Details Date Type Department Care Team (Latest Contact Info) Description 06/15/2024 3:00 PM SSIS SSRS DEVELOPER Office Visit [facility] - Hematology/Oncology [address] [place] [address] Remi Beckett MD [address] [place] [phone] Papillary carcinoma of thyroid (HCC) [...] Date Recorded PHQ2 TOTAL SCORE 1 11/25/2022 [facility] of Occupat ional Health - [...] Comments Blood Pressure 129/84 06/15/2024 3:01 PM SSIS SSRS DEVELOPER Pulse 99 06/15/2024 3:01 PM SSIS SSRS DEVELOPER Temperature 36.8 ??C (98.2 ??F) 06/15/2024 3:01 PM CS T Respiratory Rate 16 06/15/2024 3:01 PM SSIS SSRS DEVELOPER Oxygen Saturation 97% 06/15/2024 3:01 PM SSIS SSRS DEVELOPER Inhaled Oxygen Concentration - - Weight 49.3 kg (108 lb 11.2 oz) 06/15/2024 3:01 PM SSIS SSRS DEVELOPER Height - - Body Mass Index 19.88 [...] 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 --10/2023: Discussed with her auto wrecker Dr. Bustamante. She is not a good candidate for repeatRAI, which also does not have good bone/HALAL BUTCHER penetration. Hence decided to initiate lenvatinib 24 [...] HCl (Narcan) 4 MG/0.1ML nasal spray [place] 1 (one) spray into the nose as [...] with treatment as scheduled. Remi Beckett MD Drug Safety Specialistnutrition partner Department of Hematology & Medical Oncology [facility]: SSRS DEVELOPER documented in this encounter Plan of Treatment Upcoming Encounters Date Type Department Care Team (Late st Contact Info) Description 08/02/2024 2:20 PM SSIS SSRS DEVELOPER Appointment [facility] [address] [place], [place] [phone] 08/02/2024 3:00 PM SSIS SSRS DEVELOPER Office Visit [facility] - Hematology/Oncology [address] [place] [phone] Remi Beckett MD [address] [place] [phone] 08/18/2024 1:45 PM SSIS SSRS DEVELOPER Office Visit [facility] - ENT [address] [place] [phone] Neri Delgado MD [address] [place] [address] 08/30/2024 2:20 PM SSIS SSRS DEVELOPER Appointment [facility] [address] [place] [address] Scheduled Orders Name Type Priority Associated Diagnoses [...] chemotherapy documented in this encounter Care Teams Temper Mill Operator Relationship Specialty Start Date End Date Yaya Villatoro MD [address] [place] [phone] PCP - General Internal Medicine 05/04/23 Joseph Manzanares MD [address] [place] [phone] Internal Medicine 04/21/23 documented as of this encounter
--- OUTSIDE RECORDS SUMMARY | 2024-07-26 08:23 | XMS_ITS | Encounter Summary ---
Author Organization [facility] Address [address] [place] [address] Care Team Providers Care Brass Wind Instrument Maker Name Role Phone Joseph Manzanares MD Unavailable Yaya Villatoro MD Primary Care Provider +1- [phone] Encounter Details Date Type Department Care Team [...] Date Recorded PHQ2 TOTAL SCORE 1 11/25/2022 [facility] of Occupat ional Health - Occupational Stress [...] st Contact Info) Description 08/02/2024 2:20 PM MANAGER LVN Appointment [facility] [address] [place] [phone] 08/02/2024 3:00 PM MANAGER LVN Office Visit [facility] - Hematology/Oncology [address] [place] [phone] Remi Beckett MD [address] [place] [phone] 08/18/2024 1:45 PM MANAGER LVN Office Visit [facility] - ENT [address] [place] [phone] Neri Delgado MD [address] [place] [address] 08/30/2024 2:20 PM MANAGER LVN Appointment [facility] [address] [place] [phone] documented as of this encounter Visit Diagnoses Not on filedocumented in this encounter Care Teams Brass Wind Instrument Maker Relationship Specialty Start Date End Date Yaya Villatoro MD [address] [place] [phone] PCP - General Internal Medicine 05/04/23 Joseph Manzanares MD [address] [place] [phone] Internal Medicine 04/21/23 documented as of this encounter
--- OUTSIDE RECORDS SUMMARY | 2024-07-26 08:23 | XMS_ITS | Encounter Summary ---
Author Organization [facility] Address [address] [place] [address] Care Team Providers Care Cam Specialist Name Role Phone Joseph Manzanares MD Unavailable Yaya Villatoro MD Primary Care Provider +1- [phone] Encounter Details Date Type Department Care Team [...] Date Recorded PHQ2 TOTAL SCORE 1 11/25/2022 [facility] of Occupat ional Health - [...] st Contact Info) Description 08/02/2024 2:20 PM SPECIAL AGENT FBI Appointment [facility] [address] [place] [address] 08/02/2024 3:00 PM SPECIAL AGENT FBI Office Visit [facility] - Hematology/Oncology [address] [place] [phone] Remi Beckett MD [address] [place] [phone] 08/18/2024 1:45 PM SPECIAL AGENT FBI Office Visit [facility] - ENT [address] [place] [phone] Neri Delgado MD [address] [place] [address] 08/30/2024 2:20 PM SPECIAL AGENT FBI Appointment [facility] [address] [place] [address] documented as of this encounter Visit Diagnoses Not on filedocumented in this encounter Care Teams Cam Specialist Relationship Specialty Start Date End Date Yaya Villatoro MD [address] [place] [phone] PCP - General Internal Medicine 05/04/23 Joseph Manzanares MD [address] [place] [phone] Internal Medicine 04/21/23 documented as of this encounter
--- OUTSIDE RECORDS SUMMARY | 2024-07-26 08:23 | XMS_ITS | Encounter Summary ---
Author Organization [facility] Address [address] [facility] [place] [address] Care Team Providers Care Connection Worker Name Role Phone Joseph Manzanares MD Unavailable Yaya Villatoro MD Primary Care Provider +1- [phone] Encounter Details Date Type Department Care Team [...] Date Recorded PHQ2 TOTAL SCORE 1 11/25/2022 [facility] of Occupat ional Health [...] st Contact Info) Description 08/02/2024 2:20 PM BEAM PRESS OPERATOR Appointment [facility] [address] [place] [phone] 08/02/2024 3:00 PM BEAM PRESS OPERATOR Office Visit [facility] - Hematology/Oncology [address] [place] [phone] Remi Beckett MD [address] [place] [phone] 08/18/2024 1:45 PM BEAM PRESS OPERATOR Office Visit [facility] - ENT [address] [place] [phone] Neri Delgado MD [address] [place] [address] 08/30/2024 2:20 PM BEAM PRESS OPERATOR Appointment [facility] [address] [place] [phone] documented as of this encounter Visit Diagnoses Not on filedocumented in this encounter Care Teams Connection Worker Relationship Specialty Start Date End Date Yaya Villatoro MD [address] [place] [phone] PCP - General Internal Medicine 05/04/23 Joseph Manzanares MD [address] [place] [phone] Internal Medicine 04/21/23 documented as of this encounter
--- OUTSIDE RECORDS SUMMARY | 2024-07-26 08:23 | XMS_ITS | Encounter Summary ---
Author Organization [facility] Address [address] [place] [address] Care Team Providers Care Etl Analyst Developer Name Role Phone Joseph Manzanares MD Unavailable Yaya Villatoro MD Primary Care Provider [phone]- [phone] Reason for Referral * Radiology Services (Routine) - Closed Specialty Diagnoses / Procedures Referred By Yuan robins Referred To Contact Hematology-Oncology Diagnoses Cancer, metastatic to bone (HCC) Procedures NM Bone Scan Whole Body Remi Daniels MD [address] [place] [address] Referral ID Status Reason Start Date Expiration Date Visits Re quested Visits Authorized [id number] Closed 05/29/2024 05/29/2025 1 1 * Radiology Services (Routine) - Closed Specialty Diagnoses / Procedures Referred By Yuan robins Referred To Contact Hematology-Oncology Diagnoses Papillary carcinoma of thyroid (HCC) Procedures CT Neck Soft Tissue W Remi [place] MD [address] [place] [address] Referral ID Status Reason Start Date Expiration Date Visits Re quested Visits Authorized [id number] Closed 05/31/2024 05/31/2025 1 1 * Radiology Services (Routine) - Closed Specialty Diagnoses / Procedures Referred By Contricardo robins Referred To Contact Hematology-Oncology Diagnoses Papillary carcinoma of thyroid (HCC) Procedures CT Chest Abdomen Pelvis W Cont Remi Daniels MD [address] [place] [address] Referral ID Status Reason Start Date Expiration Date Visits Re quested Visits Authorized [id number] Closed 05/31/2024 05/31/2025 1 1 Reason for Visit * Reason Comments Follow-up Follow up * Auth/Cert (Routine) Specialty Diagnoses / Procedures Referred By Yuan robins Referred To Contact Referral ID Status Reason Start Date Expiration Date Visits Re quested Visits Authorized [id number] 1 1 Encounter Details Date Type Department Care Team (Latest Contact Info) Description 04/17/2024 3:20 PM CDT Office Visit [facility] - Hematology/Oncology [address] [place] [phone] Remi Daniels MD [address] [place] [address] Papillary carcinoma of thyroid (HCC) [...] Recorded PHQ2 TOTAL SCORE 1 11/25/2022 [facility] [place] [facility] - Occupational [...] and distant recurrence in spine diagnosed 10/02/2022, PD-[id number], no targetable mutations TREATMENT HISTORY: - Total [...] free T4 1.4. --10/2023: Discussed with her peoplesoft financials consultant Dr. Bustamante. She is not a good candidate for repeatRAI, which also does not have good bone/SHAKER WASHER penetration. Hence decided to initiate lenvatinib 24 [...] naloxone HCl (Narcan) 4 MG/0.1ML nasal spray [place] 1 (one) spray into the nose as [...] with treatment as scheduled. Remi Daniels MD Manager Of Securityentry level marketing representative Department of Hematology & Medical Oncology [facility]: documented in this encounter Miscellaneous Notes * Addendum Note - Remi Daniels MD - 04/19/2024 12:36 PM CDTAddended by: REMI DANIELS on: 04/19/2024 12:36 PM Modules accepted: Orders documented in this encounter Plan of Treatment Upcoming Encounters Date Type Department Care Team (Late st Contact Info) Description 08/02/2024 2:20 PM COTTON EXPERT Appointment [facility] [address] [place] [address] 08/02/2024 3:00 PM COTTON EXPERT Office Visit [facility] - Hematology/Oncology [address] [place] [phone] Remi Daniels MD [address] [place] [phone] 08/18/2024 1:45 PM COTTON EXPERT Office Visit [facility] - ENT [address] [place] [phone] Neri Delgado MD [address] [place] [address] 08/30/2024 2:20 PM COTTON EXPERT Appointment [facility] [address] [place] [phone] documented as of this encounter Results * NM Bone Scan Whole Body (07/07/2024 1:44 PM COTTON EXPERT) Anatomical Region Laterality Modality Abdomen Nuclear Medicine 07/07/2024 10:5 1 AM COTTON EXPERT Impressions 07/07/2024 3:49 PM COTTON EXPERT IMPRESSION: 1. Intense radiotracer uptake within left pelvis, consistent with severe osteoarthritis seen in the prior PET/CT from 02/25/2024. 2. Moderate radiotracer uptake within lower neck anteriorly which may relate to post treatment changes, follow-up is recommended. > Dictated by Daphne Reis MD (Roll Icer Machine) 07/07/2024 10:51 AM ITiesha DO have personally reviewed and interpreted this examination/study. > Interpreting Provider: Tiesha Sy DO on 07/07/2024 3:49 PM Narrative 07/07/2024 3:49 PM COTTON EXPERT PROCEDURE: ??NM BONE SCAN WHOLE BODY DATE/TIME OF EXAM: ??07/07/2024 10:45 AM CLINICAL INFORMATION: None relevant/not provided if blank. Indication: C79.51: Cancer, metastatic to bone (HCC) HISTORY: A 63-year-old female with metastatic papillary thyroid carcinoma diagnosed in 2020 status post total thyroidectomy, cervical and thoracic spine metastasis status post radiotherapy. Currently on immunotherapy. TECHNIQUE: The patient was injected with 24.9 mCi of lyutraggpl91-a MDP IV in the right antecubital fossa. [...] hip joint. There are multiple sites of srqp-xz-volpiwbm increased uptake in the bilateral shoulders and [...] patient was injected with 24.9 mCi of nlrjvkvszo34-a MDPIV in the right antecubital fossa. Anterior [...] hip joint. There are multiple sites of vsow-gq-rjtcnuzd increased uptake in the bilateral shoulders and spine consistent with degenerative disease. IMPRESSION: 1. Intense radiotracer uptake within left pelvis, consistent with severe osteoarthritis seen in the prior PET/CT from 02/25/2024. 2. Moderate radiotracer uptake within lower neck anteriorly which may relate to post treatment changes, follow-up is recommended. > Dictated by Daphne Reis MD (Roll Icer Machine) 07/07/2024 10:51AM I, Tiesha Sy DO have personally reviewed and interpreted this examination/study. > Interpreting Provider: Tiesha Sy DO on 07/07/2024 3:49 PM Remi Daniels MD NM ORDERABLES * CT Neck Soft Tissue W Cont (07/07/2024 12:11 PM COTTON EXPERT) Anatomical Region Laterality Modality Head Computed Tomogra phy 07/09/2024 9:47 AM COTTON EXPERT Impressions 07/09/2024 10:08 AM COTTON EXPERT IMPRESSION: 1. A 9 x 7 x [...] 07/09/2024 10:08 AM Narrative 07/09/2024 10:08 AM COTTON EXPERT PROCEDURE: ??CT NECK SOFT TISSUE W CONT, DATE/TIME OF EXAM: ??07/07/2024 12:12 PM, LOCATION ??[facility] INDICATION: C73: Papillary carcinoma of thyroid (HCC) [...] CONT, DATE/TIME OF EXAM: 2:12 PM, LOCATION [facility] INDICATION: C73: Papillary carcinoma of thyroid (HCC) [...] Abdomen Pelvis W Cont (07/07/2024 12:08 PM COTTON EXPERT) Anatomical Region Laterality Modality Chest, Abdomen, Pelvis Computed Tomography 07/07/2024 1:01 PM COTTON EXPERT Impressions 07/07/2024 4:00 PM COTTON EXPERT Impression: 1.Changes of total thyroidectomy. 2.Minimal enhancement around the gallbladder fundus, this can be seen in adenomyomatosis. Right upper quadrant ultrasound may be obtained for further evaluation if clinically indicated. 3.Partially imaged osseous changes in the lower cervical and upper thoracic spine at site of treated metastasis are better evaluated on MRI from 11/23/2023. > Dictated by Donald [facility] ??(residential director). IVaishali MD have personally reviewed and interpreted this examination/study. > Interpreting Provider: Vaishali Herrera MD on 07/07/2024 4:00 PM Narrative 07/07/2024 4:00 PM COTTON EXPERT PROCEDURE: ??CT CHEST ABDOMEN PELVIS W CONT, DATE/TIME OF EXAM: ??07/07/2024 12:09 PM, LOCATION ??[facility] INDICATION: C73: Papillary carcinoma of thyroid (HCC) [...] changes of the left hip joint with uuod-wi-jpwp contact. Partially imaged posterior spinal fusion hardware. Bone changes in the left aspect of partially imaged C7 at the site of treated metastasis. Soft tissues: Normal. Procedure Note Lorena Herrera MD - 07/07/2024 PROCEDURE: CT CHEST ABDOMEN PELVIS W CONT, DATE/TIME OF EXAM: 07/07/2024 12:09 PM, LOCATION [facility] INDICATION: C73: Papillary carcinoma of thyroid (HCC) [...] osteoarthritic changes ofthe left hip joint with kmoj-kw-cvep contact. Partially imaged posteriorspinal fusion hardware. Bone [...] MRI from 11/23/2023. > Dictated by [facility] [employer] [facility] (residential director). IVaishali MD have personally reviewed and interpreted [...] gland documented in this encounter Care Teams Etl Analyst Developer Relationship Specialty Start Date End Date Yaya Villatoro MD [address] [phone] PCP - General Internal Medicine 05/04/23 Joseph Manzanares MD [address] [place] [address] Internal Medicine 04/21/23 documented as of this encounter
--- OUTSIDE RECORDS SUMMARY | 2024-07-26 08:23 | XMS_ITS | Encounter Summary ---
Author Organization [facility] Address [address] [place] [address] Care Team Providers Care Auto Adjudication Specialist Name Role Phone Joseph Manzanares MD Unavailable Yaya Villatoro MD Primary Care Provider +1- [phone] Encounter Details Date Type Department Care Team [...] st Contact Info) Description 08/02/2024 2:20 PM PROCUREMENT ACCOUNTANT Appointment [facility] [address] [place] [address] 08/02/2024 3:00 PM PROCUREMENT ACCOUNTANT Office Visit [facility] - Hematology/Oncology [address] [place] [phone] Remi Beckett MD [address] [place] [phone] 08/18/2024 1:45 PM PROCUREMENT ACCOUNTANT Office Visit [facility] - ENT [address] [place] [phone] Neri Delgado MD [address] [place] [address] 08/30/2024 2:20 PM PROCUREMENT ACCOUNTANT Appointment [facility] [address] [place] [phone] documented as of this encounter Visit Diagnoses Not on filedocumented in this encounter Care Teams Auto Adjudication Specialist Relationship Specialty Start Date End Date Yaya Villatoro MD [address] [place] [phone] PCP - General Internal Medicine 05/04/23 Joseph Manzanares MD [address] [place] [phone] Internal Medicine 04/21/23 documented as of this encounter
--- OUTSIDE RECORDS SUMMARY | 2024-07-26 08:23 | XMS_ITS | Encounter Summary ---
Author Organization [facility] Address [address] [place] [address] Care Team Providers Care Music Assistant Name Role Phone Joseph Manzanares MD Unavailable Yaya Villatoro MD Primary Care Provider +1- [phone] Reason for Visit * Reason Comments Refill Request Encounter Details Date Type Department Care Team (Late st Contact Info) Description 04/11/2024 Refill [facility] - Endocrinology [address] [place] [address], [place] [address] Yosi Bustamante MD [address] [place] [address] [place] [address] Refill Request Social History Tobacco Use Types [...] st Contact Info) Description 08/02/2024 2:20 PM NETWORK SYSTEMS CONSULTANT Appointment [facility] [address] [place] [address] 08/02/2024 3:00 PM NETWORK SYSTEMS CONSULTANT Office Visit [facility] - Hematology/Oncology [address] [place] [phone] Remi Beckett MD [address] [place] [phone] 08/18/2024 1:45 PM NETWORK SYSTEMS CONSULTANT Office Visit [facility] - ENT [address] [place] [phone] Neri Delgado MD [address] [place] [address] 08/30/2024 2:20 PM NETWORK SYSTEMS CONSULTANT Appointment [facility] [address] [place] [address] documented as of this encounter Visit Diagnoses Diagnosis Postoperative hypothyroidism Postsurgical hypothyroidism Thyroid cancer (HCC) Malignant neoplasm of thyroid gland Malignant tumor of thyroid gland (HCC) Malignant neoplasm of thyroid gland Cancer, metastatic to bone (HCC) Secondary malignant neoplasm of bone and bone marrow documented in this encounter Care Teams Music Assistant Relationship Specialty Start Date End Date Yaya Villatoro MD [address] [place] [phone] PCP - General Internal Medicine 05/04/23 Joseph Manzanares MD [address] [place] [address] Internal Medicine 04/21/23 documented as of this encounter
--- OUTSIDE RECORDS SUMMARY | 2024-07-26 08:23 | XMS_ITS | Encounter Summary ---
Author Organization [facility] Health Address [address] [facility] [place] [address] Care Team Providers Care General Ledger Accountant Name Role Phone Joseph Manzanares MD Unavailable Yaya Villatoro MD Primary Care Provider +1- [phone] Encounter Details Date Type Department Care Team [...] Date Recorded PHQ2 TOTAL SCORE 1 11/25/2022 [facility] [...] Contact Info) Description 08/02/2024 2:20 PM MANAGER BENCH Appointment [facility] [address] [place] [address] 08/02/2024 3:00 PM MANAGER BENCH Office Visit [facility] - Hematology/Oncology [address] [place] [phone] Remi Beckett MD [address] [place] [phone] 08/18/2024 1:45 PM MANAGER BENCH Office Visit [facility] - ENT [address] [place] [phone] Neri Delgado MD [address] [place] [phone] 08/30/2024 2:20 PM MANAGER BENCH Appointment [facility] [address] [place] [phone] documented as of this encounter Visit Diagnoses Not on filedocumented in this encounter Care Teams General Ledger Accountant Relationship Specialty Start Date End Date Yaya Villatoro MD [address] [place] [phone] PCP - General Internal Medicine 05/04/23 Joseph Manzanares MD [address] [place] [phone] Internal Medicine 04/21/23 documented as of this encounter
--- OUTSIDE RECORDS SUMMARY | 2024-07-26 08:24 | XMS_ITS | Encounter Summary ---
Author Organization [facility] Address [address] [facility] [place] [address] Care Team Providers Care Management Services Technician Name Role Phone Joseph Manzanares MD Unavailable Yaya Villatoro MD Primary Care Provider +1- [phone] Reason for Referral * Radiology Services (Routine) - Pending Review Specialty Diagnoses / Procedures Referred By Yuan robins Referred To Contact ENT-Otolaryngology Diagnoses Oropharyngeal dysphagia Procedures FL Swallowing Function Study Neri Delgado MD [address] [place] [phone] [facility] [address] [place] [phone] Referral ID Status Reason Start Date Expiration Date V isits Requested Visits Authorized [id number] Pending Review 03/13/2024 03/13/2025 1 1 Encounter Details Date Type Department Care Team (Late st Contact Info) Description 03/13/2024 Orders Only [facility] - ENT [address] [place] [phone] Neri Delgado MD [address] [place] [phone] Oropharyngeal dysphagia Social History Tobacco Use [...] st Contact Info) Description 08/02/2024 2:20 PM BOW REHAIRER Appointment [facility] [address] [place] [address] 08/02/2024 3:00 PM BOW REHAIRER Office Visit [facility] - Hematology/Oncology [address] [place] [phone] Remi Beckett MD [address] [place] [phone] 08/18/2024 1:45 PM BOW REHAIRER Office Visit [facility] - ENT [address] [place] [phone] Neri Delgado MD [address] [place] [address] 08/30/2024 2:20 PM BOW REHAIRER Appointment [facility] [address] [place] [address] Scheduled Orders Name Type Priority Associated Diagnoses Orde r Schedule FL Swallowing Function Study Imaging Routine Oropharyngeal dysphagia 1 Occurrences starting 03/13/2024 until 03/13/2025 documented as of this encounter Visit Diagnoses Diagnosis Oropharyngeal dysphagia- Primary Dysphagia, oropharyngeal phase documented in this encounter Care Teams Management Services Technician Relationship Specialty Start Date End Date Yaya Villatoro MD [address] [facility] [address] [place] [address] PCP - General Internal Medicine 05/04/23 Joseph Manzanares MD [address] [place] [address] Internal Medicine 04/21/23 documented as of this encounter
--- OUTSIDE RECORDS SUMMARY | 2024-07-26 08:24 | XMS_ITS | Encounter Summary ---
Author Organization [facility] Address [address] [place] [address] Care Team Providers Care Aboriginal Education Worker Coordinator Name Role Phone Joseph Manzanares MD Unavailable Yaya Villatoro MD Primary Care Provider +1- [phone] Reason for Visit * Reason Onset Date Comments Appointment 02/29/2024 Encounter Details Date Type Department Care Team ([facility] Contact Info) Description 02/29/2024 Telephone [facility] [address] [place] [address] Alize French RN Appointment Social History Tobacco Use Types [...] Date Recorded PHQ2 TOTAL SCORE 1 11/25/2022 [facility] - [...] st Contact Info) Description 08/02/2024 2:20 PM CARPENTERS Appointment [facility] [address] [place] [phone] 08/02/2024 3:00 PM CARPENTERS Office Visit [facility] - Hematology/Oncology [address] [place] [phone] Remi Beckett MD [address] [place] [phone] 08/18/2024 1:45 PM CARPENTERS Office Visit [facility] - ENT [address] [place] [phone] Neri Delgado MD [address] [place] [address] 08/30/2024 2:20 PM CARPENTERS Appointment [facility] [address] [place] [phone] documented as of this encounter Visit Diagnoses Not on filedocumented in this encounter Care Teams Aboriginal Education Worker Coordinator Relationship Specialty Start Date End Date Yaya Villatoor MD [address] [phone] PCP - General Internal Medicine 05/04/23 Joseph Manzanares MD [address] [place] [phone] Internal Medicine 04/21/23 documented as of this encounter
--- OUTSIDE RECORDS SUMMARY | 2024-07-26 08:24 | XMS_ITS | Encounter Summary ---
Author Organization [facility] Health Address [address] [place] [address] Care Team Providers Care Electromyographic Technician Name Role Phone Joseph Manzanares MD Unavailable Yaya Villatoro MD Primary Care Provider [phone]- [phone] Reason for Visit * Reason Comments Cancer - 2 WK F/U Encounter Details Date Type Department Care Team (Latest Contact Info) Description 03/20/2024 3:00 PM CDT Office Visit [facility] - Hematology/Oncology [address] [place] [address] Remi Beckett MD [address] [place] [address] Papillary carcinoma of thyroid (HCC) [...] Date Recorded PHQ2 TOTAL SCORE 1 11/25/2022 [facility] Occupat ional Health - Occupational Stress [...] the physicians and other specialists at the [facility] On[facility]. [facility] Hematology/Oncology Clinic: For symptom management or prescription questions during business hours (Mon-Fri 8AM-4:30PM), pleasecall the triage nurse. Outside of business hours, please call the hematology/oncology doctor on-call. Hem/Onc Doctor On-Call (After hours, weekends, holidays): [phone], Dial [phone] (Dispersion Mixer) and askfor the hematology/oncology fellow on-call and [...] and distant recurrence in spine diagnosed 10/02/2022, [id number], no targetable mutations TREATMENT HISTORY: - Total [...] free T4 1.4. --10/2023: Discussed with her funeral service manager Dr. Bustamante. She is not a good candidate for repeatRAI, which also does not have good bone/JOURNEYMAN PRESS OPERATOR penetration. Hence decided to initiate lenvatinib 24 [...] naloxone HCl (Narcan) 4 MG/0.1ML nasal spray [place] 1 (one) spray into the nose as [...] with treatment as scheduled. Remi Beckett MD [employer] Hatcher[employer] Workerspice miller Department of Hematology & Medical Oncology [facility]: documented in this encounter Plan of Treatment Upcoming Encounters Date Type Department Care Team (Late st Contact Info) Description 08/02/2024 2:20 PM HEALTH SAFETY COORDINATOR Appointment [facility] [address] [place] [phone] 08/02/2024 3:00 PM HEALTH SAFETY COORDINATOR Office Visit [facility] - Hematology/Oncology [address] [place] [phone] Remi Beckett MD [address] [place] [phone] 08/18/2024 1:45 PM HEALTH SAFETY COORDINATOR Office Visit [facility] - ENT [address] [place] [phone] Neri Delgado MD [address] [place] [phone] 08/30/2024 2:20 PM HEALTH SAFETY COORDINATOR Appointment [facility] [address] [place] [phone] documented as of this encounter Results * (ABNORMAL) CBC WITH DIFFERENTIAL (04/17/2024 3:07 PM CDT) [facility] WBC 9.5 4.0 - 10.7 x10E9/L 04/17/2024 3:14 PM CDT [facility] RBC Count 5.28(H) 3.90 - 5.20 x10E12/L 04/17/2024 3:14 PM CDT [facility] Hemoglobin 15.2 11.9 - 15.8 g/dL 04/17/2024 3:14 PM CDT [facility] Hematocrit 44.6 34.8 - 46.1 % 04/17/2024 3:14 PM CDT [facility] MCV 84.5 80.0 - 98.0 fL 04/17/2024 3:14 PM CDT [facility] MCH 28.8 26.7 - 33.6 pg 04/17/2024 3:14 PM [facility] MCHC 34.1 31.7 - 36.3 g/dL 04/17/2024 3:14 PM [facility] RDW-CV 14.6 11.3 - 14.8 % 04/17/2024 3:14 PM [facility] Platelet Count 279 150 - 420 x10E9/L 04/17/2024 3:14 PM [facility] MPV 9.4 7.8 - 11.4 fL 04/17/2024 3:14 PM [facility] Neutrophil % 73.6 41.0 - 74.0 % 04/17/2024 3:14 PM [facility] Lymphocyte % 16.9(L) 17.0 - 47.0 % 04/17/2024 3:14 PM [facility] Monocyte % 7.1 3.0 - 11.0 % 04/17/2024 3:14 PM [facility] Eosinophil % 1.8 0.0 - 7.0 % 04/17/2024 3:14 PM [facility] Basophil % 0.4 0.0 - 1.6 % 04/17/2024 3:14 PM [facility] Immature Granulocytes % 0.2 0.0 - 1.0 % 04/17/2024 3:14 PM [facility] Neutrophil Absolute 7.01 1.60 - 7.50 x10E9/L 04/17/2024 3:14 PM [facility] Lymphocyte Absolute 1.61 1.00 - 4.40 x10E9/L 04/17/2024 3:14 PM [facility] Monocyte Absolute 0.68 0.15 - 1.00 x10E9/L 04/17/2024 3:14 PM [facility] Eosinophil Absolute 0.17 0.00 - 0.60 x10E9/L 04/17/2024 3:14 PM [facility] Basophil Absolute 0.04 0.00 - 0.13 x10E9/L 04/17/2024 3:14 PM [facility] Blood BLOOD SPECIMEN / Unknown Lab Venipuncture / Unknown 04/17/2024 3:07 PM CDT 04/17/2024 3:11 PM T Remi Beckett MD LAB - HEMATOLOGY ORDERABLES [facility] [address] [place] [address], [facility] [phone] * (ABNORMAL) COMPREHENSIVE METABOLIC PANEL (04/17/2024 3:07 PM CDT) BUN 25 7 - 26 mg/dL 04/17/2024 4:02 PM [facility] Creatinine 0.73 0.56 - 0.96 mg/dL 04/17/2024 4:02 PM [facility] Sodium 138 136 - 145 mmol/L 04/17/2024 4:02 PM [facility] Potassium 4.2 3.5 - 4.5 mmol/L 04/17/2024 4:02 PM [facility] Chloride 103 98 - 107 mmol/L 04/17/2024 4:02 PM [facility] CO2 23 22 - 29 mmol/L 04/17/2024 4:02 PM [facility] Glucose 95 70 - 115 mg/dL 04/17/2024 4:02 PM [facility] Calcium 9.4 8.4 - 10.2 mg/dL 04/17/2024 4:02 PM [facility] Protein Total 7.5 6.0 - 8.3 g/dL 04/17/2024 4:02 PM [facility] Albumin 3.8 3.4 - 5.0 g/dL 04/17/2024 4:02 PM [facility] Bilirubin Total 0.3 0.2 - 1.2 mg/dL 04/17/2024 4:02 PM [facility] Alkaline Phosphatase 80 40 - 150 U/L 04/17/2024 4:02 PM [facility] ALT 9 5 - 55 U/L 04/17/2024 4:02 PM [facility] AST 16 5 - 34 U/L 04/17/2024 4:02 PM [facility] Anion Gap 12 6 - 16 04/17/2024 4:02 PM [facility] BUN/Creatinine Ratio 34(H) 7 - 23 04/17/2024 4:02 PM [facility] Osmolality Calculated 290 275 - 295 mOsm/kg 04/17/2024 4:02 PM [facility] Albumin/Globulin Ratio 1.0(L) 1.1 - 2.3 04/17/2024 4:02 PM [facility] eGFR by CKD-EPI >90 >=90 mL/min/1.7 3 m2 04/17/2024 4:02 PM [facility] Blood BLOOD SPECIMEN / Unknown Lab Venipuncture / Unknown 04/17/2024 3:07 PM CDT 04/17/2024 3:11 PM CDT Remi Beckett MD LAB - CHEMISTRY ORDERABLES Performing Organization Address City/State/[facility] Co de Phone Number [facility] [address] [place] [address], [facility] [phone] documented in this encounter Visit Diagnoses Diagnosis Papillary carcinoma of thyroid (HCC)- Primary Malignant neoplasm of thyroid gland Encounter for antineoplastic chemotherapy Cancer, metastatic to bone (HCC) Secondary malignant neoplasm of bone and bone marrow Mucositis due to antineoplastic therapy Mucositis (ulcerative) due to antineoplastic therapy documented in this encounter Care Teams Electromyographic Technician Relationship Specialty Start Date End Date Yaya Villatoro MD [address] [facility] [address] [place] [phone] PCP - General Internal Medicine 05/04/23 Joseph Manzanares MD [address] [place] [phone] Internal Medicine 04/21/23 documented as of this encounter
--- OUTSIDE RECORDS SUMMARY | 2024-07-26 08:24 | XMS_ITS | Encounter Summary ---
Author Organization [facility] Health Address [address] [facility] [place] [address] Care Team Providers Care Jewelry Technician Name Role Phone Joseph Manzanares MD Unavailable Yaya Villatoro MD Primary Care Provider [phone]- [phone] Encounter Details Date Type Department Care Team (Latest Contact Info) Description 03/20/2024 2:37 PM CDT - 03/20/2024 11:59 PM CDT Hospital Encounter [facility] [address] [facility], 2nd [place] [address] Discharge Disposition: Home or Self Care Social [...] naloxone HCl (Narcan) 4 MG/0.1ML nasal spray [place] 1 (one) spray into the nose as [...] st Contact Info) Description 08/02/2024 2:20 PM CDL B DRIVER Appointment [facility] [address] [place] [phone] 08/02/2024 3:00 PM CDL B DRIVER Office Visit [facility] - Hematology/Oncology [address] [place] [phone] Remi Beckett MD [address] [place] [phone] 08/18/2024 1:45 PM CDL B DRIVER Office Visit [facility] - ENT [address] [place] [phone] Neri Delgado MD [address] [place] [address] 08/30/2024 2:20 PM CDL B DRIVER Appointment [facility] [address] [place] [phone] documented as of this encounter Procedures Procedure [...] - 38.5 ng/mL 03/21/2024 5:09 PM CDT [facility] ([facility]) Comment: According to the National Academy [...] 2:41 PM CDT 03/20/2024 2:42 PM CDT [facility] ([facility]) - 03/21/2024 5:09 PM CDT Performed at: ??01 - [facility] [address] [facility], [place], [place] ??[id number] Pediatric Radiologist: Oral Melendez PhD, Phone: ??[phone] Yosi Bustamante MD LAB - CHEMISTRY ORD ERABLES [facility] ([facility]) [address] [place] [address] * (ABNORMAL) PHOSPHORUS BLOOD (03/20/2024 2:41 PM CDT) [facility] Phosphorus 5.7(H) 2.9 - 5.1 mg/dL 03/20/2024 3:19 PM CDT [facility] Blood BLOOD SPECIMEN / Unknown Lab Venipuncture / Unknown 03/20/2024 2:41 PM CDT 03/20/2024 2:50 PM CDT Yosi Bustamante MD LAB - CHEMISTRY ORD ERABLES [facility] [address] [place] [phone], [facility] [phone] * THYROGLOBULIN REFLEX PROFILE (03/20/2024 2:41 PM CDT) [facility] Thyroglobulin Antibody <1.0 0.0 - 0.9 IU/mL 03/21/2024 5:09 PM CDT [facility] ([facility]) Comment: Thyroglobulin Antibody measured by Lisbet [place] Methodology It should be noted that the presence of thyroglobulin antibodies may not be pathogenic nor diagnostic, especially at very low levels. The assay band tumbler has found that four percent of individuals without evidence of thyroid disease or autoimmunity will have positive TgAb levels up to 4 IU/mL. Blood BLOOD SPECIMEN / Unknown Lab Venipuncture / Unknown 03/20/2024 2:41 PM CDT 03/20/2024 2:42 PM CDT Narrative [facility] ([facility]) - 03/21/2024 5:09 PM CDT Performed at: ??01 - [facility] [address] [place], [place] ??[id number] Pediatric Radiologist: Oral Melendez PhD, Phone: ??[phone] Yosi Bustamante MD LAB - CHEMISTRY ORD ERABLES [facility] ([facility]) [address] [place] [address], [facility] * (ABNORMAL) TSH (03/20/2024 2:41 PM CDT) [facility] TSH 0.028(L) 0.350 - 4.940 uIU/mL 03/20/2024 3:36 PM [facility] Blood BLOOD SPECIMEN / Unknown Lab Venipuncture / Unknown 03/20/2024 2:41 PM CDT 03/20/2024 2:50 PM CDT Yosi Bustamante MD LAB - CHEMISTRY ORD ERABLES Performing Organization Address [facility]/ZIP Co de Phone Number [facility] [address] [place] [address] [phone] * (ABNORMAL) COMPREHENSIVE METABOLIC PANEL (03/20/2024 2:41 PM CDT) BUN 19 7 - 26 mg/dL 03/20/2024 3:19 PM [facility] Creatinine 0.69 0.56 - 0.96 mg/dL 03/20/2024 3:19 PM [facility] Sodium 139 136 - 145 mmol/L 03/20/2024 3:19 PM [facility] Potassium 4.1 3.5 - 4.5 mmol/L 03/20/2024 3:19 PM [facility] Chloride 108(H) 98 - 107 mmol/L 03/20/2024 3:19 PM [facility] CO2 24 22 - 29 mmol/L 03/20/2024 3:19 PM [facility] Glucose 104 70 - 115 mg/dL 03/20/2024 3:19 PM [facility] Calcium 9.5 8.4 - 10.2 mg/dL 03/20/2024 3:19 PM [facility] Protein Total 7.7 6.0 - 8.3 g/dL 03/20/2024 3:19 PM [facility] Albumin 4.0 3.4 - 5.0 g/dL 03/20/2024 3:19 PM [facility] Bilirubin Total 0.2 0.2 - 1.2 mg/dL 03/20/2024 3:19 PM [facility] Alkaline Phosphatase 83 40 - 150 U/L 03/20/2024 3:19 PM [facility] ALT 11 5 - 55 U/L 03/20/2024 3:19 PM [facility] AST 17 5 - 34 U/L 03/20/2024 3:19 PM [facility] Anion Gap 7 6 - 16 03/20/2024 3:19 PM [facility] BUN/Creatinine Ratio 28(H) 7 - 23 03/20/2024 3:19 PM [facility] Osmolality Calculated 291 275 - 295 mOsm/kg 03/20/2024 3:19 PM [facility] Albumin/Globulin Ratio 1.1 1.1 - 2.3 03/20/2024 3:19 PM [facility] eGFR by CKD-EPI >90 >=90 mL/min/1.7 3 m2 03/20/2024 3:19 PM [facility] Blood BLOOD SPECIMEN / Unknown Lab Venipuncture / Unknown 03/20/2024 2:41 PM CDT 03/20/2024 2:50 PM CDT Remi Beckett MD LAB - CHEMISTRY ORDERABLES [facility] [address] [place] [phone], [facility] [phone] * CBC WITH DIFFERENTIAL (03/20/2024 2:41 PM CDT) WBC 7.8 4.0 - 10.7 x10E9/L 03/20/2024 2:59 PM [facility] RBC Count 4.93 3.90 - 5.20 x10E12/L 03/20/2024 2:59 PM [facility] Hemoglobin 14.6 11.9 - 15.8 g/dL 03/20/2024 2:59 PM [facility] Hematocrit 41.8 34.8 - 46.1 % 03/20/2024 2:59 PM [facility] MCV 84.8 80.0 - 98.0 fL 03/20/2024 2:59 PM [facility] MCH 29.6 26.7 - 33.6 pg 03/20/2024 2:59 PM [facility] MCHC 34.9 31.7 - 36.3 g/dL 03/20/2024 2:59 PM [facility] RDW-CV 13.9 11.3 - 14.8 % 03/20/2024 2:59 PM [facility] Platelet Count 297 150 - 420 x10E9/L 03/20/2024 2:59 PM [facility] MPV 9.3 7.8 - 11.4 fL 03/20/2024 2:59 PM [facility] Neutrophil % 67.8 41.0 - 74.0 % 03/20/2024 2:59 PM [facility] Lymphocyte % 20.7 17.0 - 47.0 % 03/20/2024 2:59 PM [facility] Monocyte % 9.1 3.0 - 11.0 % 03/20/2024 2:59 PM [facility] Eosinophil % 1.5 0.0 - 7.0 % 03/20/2024 2:59 PM [facility] Basophil % 0.6 0.0 - 1.6 % 03/20/2024 2:59 PM [facility] Immature Granulocytes % 0.3 0.0 - 1.0 % 03/20/2024 2:59 PM [facility] Neutrophil Absolute 5.31 1.60 - 7.50 x10E9/L 03/20/2024 2:59 PM [facility] Lymphocyte Absolute 1.62 1.00 - 4.40 x10E9/L 03/20/2024 2:59 PM [facility] Monocyte Absolute 0.71 0.15 - 1.00 x10E9/L 03/20/2024 2:59 PM [facility] Eosinophil Absolute 0.12 0.00 - 0.60 x10E9/L 03/20/2024 2:59 PM [facility] Basophil Absolute 0.05 0.00 - 0.13 x10E9/L 03/20/2024 2:59 PM [facility] Blood BLOOD SPECIMEN / Unknown Lab Venipuncture / Unknown 03/20/2024 2:41 PM CDT 03/20/2024 2:50 PM CDT Remi Beckett MD LAB - HEMATOLOGY ORDERABLES Performing Organization Address City/State/[facility] Co de Phone Number [address] [address], [facility] [phone] documented in this encounter Visit Diagnoses Diagnosis Postoperative hypothyroidism Postsurgical hypothyroidism Thyroid cancer (HCC) Malignant neoplasm of thyroid gland Hypocalcemia Other hypoparathyroidism (HCC) Malignant tumor of thyroid gland (HCC) Malignant neoplasm of thyroid gland Cancer, metastatic to bone (HCC) Secondary malignant neoplasm of bone and bone marrow Papillary carcinoma of thyroid (HCC) Malignant neoplasm of thyroid gland documented in this encounter Care Teams Jewelry Technician Relationship Specialty Start Date End Date Yaya Villatoro MD [address] [phone] PCP - General Internal Medicine 05/04/23 Joseph Manzanares MD [address] [place] [phone] Internal Medicine 04/21/23 documented as of this encounter
--- OUTSIDE RECORDS SUMMARY | 2024-07-26 08:24 | XMS_ITS | Encounter Summary ---
Author Organization [facility] Health Address [address] [facility] [place] [address] Care Team Providers Care Silhouette Artist Name Role Phone Joseph Manzanares MD Unavailable Yaya Villatoro MD Primary Care Provider [phone]- [phone] Reason for Visit * Reason Onset Date Comments Nutrition Consult 03/08/2024 Encounter Details Date Type Department Care Team (Late st Contact Info) Description 03/08/2024 Telephone [facility] - E[facility] [address] [place] [phone] Aimee Santiago, HAI/LD Nutrition Consult Social History Tobacco Use Types [...] HLD Diagnosis: Site: Thyroid Histology: PTC Stage: [id number] AJCC IVb Details: Positive margins, LVI +, [...] kg (124 lb) Estimated Nutrition Needs: Calories: 3727-4561 kcal (25-30 kcal/kg of abw 55.5 kg) [...] again at a later date. GRACE Chacon, HAIN, LD documented in this encounter Plan of Treatment Upcoming Encounters Date Type Department Care Team (Late st Contact Info) Description 08/02/2024 2:20 PM CLOTH TESTER QUALITY Appointment [facility] [address] [place] [phone] 08/02/2024 3:00 PM CLOTH TESTER QUALITY Office Visit [facility] - Hematology/Oncology [address] [place] [phone] Remi Beckett MD [address] [place] [phone] 08/18/2024 1:45 PM CLOTH TESTER QUALITY Office Visit [facility] - ENT [address] [place] [phone] Neri Delgado MD [address] [place] [phone] 08/30/2024 2:20 PM CLOTH TESTER QUALITY Appointment [facility] [address] [place] [phone] documented as of this encounter Visit Diagnoses Not on filedocumented in this encounter Care Teams Silhouette Artist Relationship Specialty Start Date End Date Yaya Villatoro MD [address] [facility] [address] [place] [phone] PCP - General Internal Medicine 05/04/23 Joseph Manzanares MD [address] [place] [phone] Internal Medicine 04/21/23 documented as of this encounter
--- OUTSIDE RECORDS SUMMARY | 2024-07-26 08:24 | XMS_ITS | Encounter Summary ---
Author Organization [facility] Health Address [address] [facility] [place] [address] Care Team Providers Care Safety Representative Name Role Phone Joseph Manzanares MD Unavailable Yaya Villatoro MD Primary Care Provider [phone]- [phone] Encounter Details Date Type Department Care Team (Late st Contact Info) Description 03/01/2024 Orders Only [facility] - Hematology/Oncology [address] [place] [phone] Remi Beckett MD [address] [place] [phone] Papillary carcinoma of thyroid (HCC) [...] Date Recorded PHQ2 TOTAL SCORE 1 11/25/2022 [facility] - Occupational [...] st Contact Info) Description 08/02/2024 2:20 PM CLIENT ADVOCATE Appointment [facility] [address] [place] [phone] 08/02/2024 3:00 PM CLIENT ADVOCATE Office Visit [facility] - Hematology/Oncology [address] [place] [phone] Remi Beckett MD [address] [place] [phone] 08/18/2024 1:45 PM CLIENT ADVOCATE Office Visit [facility] - ENT [address] [place] [phone] Neri Delgado MD [address] [place] [phone] 08/30/2024 2:20 PM CLIENT ADVOCATE Appointment [facility] [address] [place] [phone] documented as of this encounter Visit Diagnoses Diagnosis Papillary carcinoma of thyroid (HCC) Malignant neoplasm of thyroid gland documented in this encounter Care Teams Safety Representative Relationship Specialty Start Date End Date Yaya Villatoro MD [address] [place] [phone] PCP - General Internal Medicine 05/04/23 Joseph Manzanares MD [address] [place] [phone] Internal Medicine 04/21/23 documented as of this encounter
--- OUTSIDE RECORDS SUMMARY | 2024-07-26 08:24 | XMS_ITS | Encounter Summary ---
Author Organization [facility] Health Address [address] [facility] [place] [address] Care Team Providers Care Architecture Professor Name Role Phone Joseph Manzanares MD Unavailable Yaya Villatoro MD Primary Care Provider +1- [phone] Encounter Details Date Type Department Care Team [...] st Contact Info) Description 08/02/2024 2:20 PM LOCOMOTIVE OPERATOR HELPER Appointment [facility] [address] [place] [address] 08/02/2024 3:00 PM LOCOMOTIVE OPERATOR HELPER Office Visit [facility] - Hematology/Oncology [address] [place] [phone] Remi Beckett MD [address] [place] [phone] 08/18/2024 1:45 PM LOCOMOTIVE OPERATOR HELPER Office Visit [facility] - ENT [address] [place] [phone] Neri Delgado MD [address] [place] [phone] 08/30/2024 2:20 PM LOCOMOTIVE OPERATOR HELPER Appointment [facility] [address] [place] [phone] documented as of this encounter Visit Diagnoses Not on filedocumented in this encounter Care Teams Architecture Professor Relationship Specialty Start Date End Date Yaya Villatoro MD [address] [place] [phone] PCP - General Internal Medicine 05/04/23 Joseph Manzanares MD [address] [place] [phone] Internal Medicine 04/21/23 documented as of this encounter
--- OUTSIDE RECORDS SUMMARY | 2024-07-26 08:24 | XMS_ITS | Encounter Summary ---
Author Organization [facility] Health Address [address] [facility] [place] [address] Care Team Providers Care Center Lead Consultant Name Role Phone Joseph Manzanares MD Unavailable Yaya Villatoro MD Primary Care Provider +1- [phone] Reason for Visit * Reason Onset Date Comments Nutrition Consult 03/22/2024 Encounter Details Date Type Department Care Team (Late st Contact Info) Description 03/22/2024 Telephone [facility] [address] [place] [phone] Aimee Santiago, HAI/LD Nutrition Consult Social History [...] HLD Diagnosis: Site: Thyroid Histology: PTC Stage: [id number] AJCC IVb Details: Positive margins, LVI +, [...] QD due to mucositis) Comments: Per hemonc VARNISH MAKER note 03/13- pt was off Lenvatinib x1 [...] st Contact Info) Description 08/02/2024 2:20 PM AUTOMOBILE SERVICE STATION MANAGER Appointment [facility] [address] [place] [address] 08/02/2024 3:00 PM AUTOMOBILE SERVICE STATION MANAGER Office Visit [facility] - Hematology/Oncology [address] [place] [phone] Remi Beckett MD [address] [place] [phone] 08/18/2024 1:45 PM AUTOMOBILE SERVICE STATION MANAGER Office Visit [facility] - ENT [address] [place] [phone] Neri Delgado MD [address] [place] [address] 08/30/2024 2:20 PM AUTOMOBILE SERVICE STATION MANAGER Appointment [facility] [address] [place] [address] documented as of this encounter Visit Diagnoses Not on filedocumented in this encounter Care Teams Center Lead Consultant Relationship Specialty Start Date End Date Yaya Villatoro MD [address] [place] [phone] PCP - General Internal Medicine 05/04/23 Joseph Manzanares MD [address] [place] [phone] Internal Medicine 04/21/23 documented as of this encounter
--- OUTSIDE RECORDS SUMMARY | 2024-07-26 08:24 | XMS_ITS | Encounter Summary ---
Author Organization [facility] Health Address [address] [facility] [place] [address] Care Team Providers Care Kiln Setter Name Role Phone Joseph Manzanares MD Unavailable Yaya Villatoro MD Primary Care Provider +1- [phone] Reason for Visit * Reason Comments Follow-up Follow up Encounter Details Date Type Department Care Team (Late st Contact Info) Description 03/07/2024 12:40 PM CDT Office Visit [facility] - Hematology/Oncology [address] [place] [address] Shannan Benavides APRN-SARAH [address] [place] [address] Papillary carcinoma of thyroid (HCC) [...] Date Recorded PHQ2 TOTAL SCORE 1 11/25/2022 [facility] [place] of Occupat ional Health - Occupational Stress [...] Patient Instructions * Patient Instructions* Shannan Benavides APRN-SARAH - 03/07/2024 1:38 PM CDT Thank you for entrusting your healthcare to the physicians and other specialists at the [facility] Hematology & Oncology Clinic. Darryl FERRIS- [phone] Please call us if you do not hear from the pharmacy regarding your medications [facility] Hematology/Oncology Clinic: For symptom management or prescription questions during business hours (Mon-Fri 8AM-4:30PM), pleasecall the triage nurse. Outside of business hours, please call the hematology/oncology doctor on-call. Hem/Onc Doctor On-Call (After hours, weekends, holidays): , Dial 0 (Assistant Product Manager) and ask for the hematology/oncology fellow on-call [...] free T4 1.4. --10/2023: Discussed with her sales account associate Dr. Bustamante. She is not a good candidate for repeatRAI, which also does not have good bone/CASING CLEANER penetration. Hence decided to initiate lenvatinib 24 [...] naloxone HCl (Narcan) 4 MG/0.1ML nasal spray [place] 1 (one) spray into the nose as [...] lung zone. > Dictated by Tex Andrew (Supervisor Gate Services) 02/25/2024 10:45 AM Jared Mckeon DO have [...] the health record, and care coordination. Tc BAILEY[facility]cology documented in this encounter Plan of Treatment Upcoming Encounters Date Type Department Care Team (Late st Contact Info) Description 08/02/2024 2:20 PM MATERIALS ASSISTANT Appointment [facility] [address] [place] [phone] 08/02/2024 3:00 PM MATERIALS ASSISTANT Office Visit [facility] - Hematology/Oncology [address] [place] [phone] Remi Beckett MD [address] [place] [phone] 08/18/2024 1:45 PM MATERIALS ASSISTANT Office Visit [facility] - ENT [address] [place] [phone] Neri Delgado MD [address] [place] [address] 08/30/2024 2:20 PM MATERIALS ASSISTANT Appointment [facility] [address] [place] [address] documented as of this encounter Visit Diagnoses Diagnosis Papillary carcinoma of thyroid (HCC)- Primary Malignant neoplasm of thyroid gland documented in this encounter Care Teams Kiln Setter Relationship Specialty Start Date End Date Yaya Villatoro MD [facility] [address] [phone] PCP - General Internal Medicine 05/04/23 Joseph Manzanares MD [facility] [place] [address] Internal Medicine 04/21/23 documented as of this encounter
--- OUTSIDE RECORDS SUMMARY | 2024-07-26 08:24 | XMS_ITS | Encounter Summary ---
Author Organization [facility] Health Address [address] [facility] [place] [address] Care Team Providers Care Car Shunter Name Role Phone Joseph Manzanares MD Unavailable Yaya Villatoro MD Primary Care Provider +1- [phone] Reason for Referral * Radiology Services (Routine) - Closed Specialty Diagnoses / Procedures Referred By Yuan robins Referred To Contact MRI Diagnoses Metastasis to bone (HCC) Secondary malignant neoplasm of bone (HCC) Procedures MRI Cervical Spine Wwo Cont Marcio Mcintosh MD [address] [place] [address] [facility] [address] [place] [address] Referral ID Status Reason Start Date Expiration Date Visits Re quested Visits Authorized [id number] Closed 06/06/2024 09/04/2024 1 1 Reason for Visit * Radiation Therapy (Elective) - Closed Specialty Diagnoses / Procedures Referred By Yuan robins Referred To Contact Radiation Oncology Diagnoses Secondary malignant neoplasm of bone (HCC) Procedures FOLLOW UP Yaya Villatoro MD [address] [phone] Marcio Mcintosh MD [address] [place] [address] Referral ID Status Reason Start Date Expiration Date V isits Requested Visits Authorized [id number] Closed Insurance Mandate 11/24/2023 05/26/2024 2 2 Encounter Details Date Type Department Care Team (Latest Contact Info) Description 03/07/2024 2:00 PM CDT - 03/07/2024 11:59 PM CDT Hospital Encounter [facility] [address] [place] [address] Marcio Mcintosh MD [address] [place] [address] Discharge Disposition: Home or Self [...] Date Recorded PHQ2 TOTAL SCORE 1 11/25/2022 [facility] [place] of Occupat ional Health - Occupational Stress [...] (two) tablets by mouth Every 6 Hours (03,,15,) atorvastatin (Lipitor) 40 MG tabletIndications:Hyperl ipidemia, unspecified [...] naloxone HCl (Narcan) 4 MG/0.1ML nasal spray [place] 1 (one) spray into the nose as [...] Return Patient Visit Department of Radiation Oncology [facility] ENCOUNTER DATE: 03/07/2024 PATIENT IDENTIFICATION Brisa Walters [...] 5 fractions ending on 10/22/2023 Referring MD: Alteration Worker: Yosi Bustamante MD ENT Surgeon: Neri Delgado [...] 5 mm. She underwent palliative radiotherapy with 2295-3042 cGy in 5 fractions delivered via IMRT [...] Seasonal allergies Snoring SOB (shortness of breath) 2 thyroid mass Thyroid cancer (HCC) 10/14/2020 Tracheal [...] naloxone HCl (Narcan) 4 MG/0.1ML nasal spray [place] 1 (one) spray into the nose as [...] lung zone. > Dictated by Tex Andrew (Machine Feeder Raw Stock) 02/25/2024 10:45 AM Jared Mckeon DO have [...] st Contact Info) Description 08/02/2024 2:20 PM RECRUITER MANAGER Appointment [facility] [address] [place] [address] 08/02/2024 3:00 PM RECRUITER MANAGER Office Visit [facility] - Hematology/Oncology [address] [place] [phone] Remi Beckett MD [address] [place] [phone] 08/18/2024 1:45 PM RECRUITER MANAGER Office Visit [facility] - ENT [address] [place] [phone] Neri Delgado MD [address] [place] [address] 08/30/2024 2:20 PM RECRUITER MANAGER Appointment [facility] [address] [place] [phone] documented as of this encounter Results * MRI Cervical Spine Wwo Cont (07/06/2024 1:17 PM RECRUITER MANAGER) Anatomical Region Laterality Modality Spine Magnetic Resonan ce 07/06/2024 3:40 PM RECRUITER MANAGER Impressions 07/07/2024 6:34 AM RECRUITER MANAGER IMPRESSION: 1. 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 No definite evidence of severe central canal stenosis or intramedullary tumor is seen. IMPRESSION: Normal cervical spine MRI performed without and with IV contrast. > Interpreting Provider: Primitivo Martin MD on 07/07/2024 6:34 AM Narrative 07/07/2024 6:34 AM RECRUITER MANAGER PROCEDURE: ??MRI CERVICAL SPINE WWO CONT [...] marrow documented in this encounter Care Teams Car Shunter Relationship Specialty Start Date End Date Yaya Villatoro MD [address] [facility] [address] [place] [phone] PCP - General Internal Medicine 05/04/23 Joseph Manzanares MD [address] [place] [phone] Internal Medicine 04/21/23 documented as of this encounter
--- OUTSIDE RECORDS SUMMARY | 2024-07-26 08:24 | XMS_ITS | Encounter Summary ---
Author Organization [facility] Health Address [address] [facility] [place] [address] Care Team Providers Care Boarder Machine Name Role Phone Joseph Manzanares MD Unavailable Yaya Villatoro MD Primary Care Provider +1- [phone] Encounter Details Date Type Department Care Team [...] st Contact Info) Description 08/02/2024 2:20 PM LINEN ATTENDANT Appointment [facility] [address] [place] [address] 08/02/2024 3:00 PM LINEN ATTENDANT Office Visit [facility] - Hematology/Oncology [address] [place] [phone] Remi Beckett MD [address] [place] [phone] 08/18/2024 1:45 PM LINEN ATTENDANT Office Visit [facility] - ENT [address] [place] [phone] Neri Delgado MD [address] [place] [address] 08/30/2024 2:20 PM LINEN ATTENDANT Appointment [facility] [address] [place] [phone] documented as of this encounter Visit Diagnoses Not on filedocumented in this encounter Care Teams Boarder Machine Relationship Specialty Start Date End Date Yaya Villatoro MD [address] [place] [phone] PCP - General Internal Medicine 05/04/23 Joseph Manzanares MD [address] [place] [phone] Internal Medicine 04/21/23 documented as of this encounter
--- OUTSIDE RECORDS SUMMARY | 2024-07-26 08:24 | XMS_ITS | Encounter Summary ---
Author Organization [facility] Health Address [address] [facility] [place] [address] Care Team Providers Care Php Mysql Developer Name Role Phone Joseph Manzanares MD Unavailable Yaya Villatoro MD Primary Care Provider +1- [phone] Encounter Details Date Type Department Care Team [...] st Contact Info) Description 08/02/2024 2:20 PM ASSISTANT FACILITY MANAGER Appointment [facility] [address] [place] [address] 08/02/2024 3:00 PM ASSISTANT FACILITY MANAGER Office Visit [facility] - Hematology/Oncology [address] [place] [phone] Remi Beckett MD [address] [place] [phone] 08/18/2024 1:45 PM ASSISTANT FACILITY MANAGER Office Visit [facility] - ENT [address] [place] [phone] Neri Delgado MD [address] [place] [address] 08/30/2024 2:20 PM ASSISTANT FACILITY MANAGER Appointment [facility] [address] [place] [address] documented as of this encounter Visit Diagnoses Not on filedocumented in this encounter Care Teams Php Mysql Developer Relationship Specialty Start Date End Date Yaya Villatoro MD [address] [place] [phone] PCP - General Internal Medicine 05/04/23 Joseph Manzanares MD [address] [place] [phone] Internal Medicine 04/21/23 documented as of this encounter
--- OUTSIDE RECORDS SUMMARY | 2024-07-26 08:24 | XMS_ITS | Encounter Summary ---
Author Organization [facility] Health Address [address] [facility] [place] [address] Care Team Providers Care Proposal Rep Name Role Phone Joseph Manzanares MD Unavailable Yaya Villatoro MD Primary Care Provider +1- [phone] Encounter Details Date Type Department Care Team (Latest Contact Info) Description 03/07/2024 12:49 PM CDT - 03/07/2024 1:59 PM CDT Hospital Encounter [facility] [address] [facility], [address] [place] [address] Discharge Disposition: Home or Self Care Social [...] naloxone HCl (Narcan) 4 MG/0.1ML nasal spray [place] 1 (one) spray into the nose as [...] Upcoming Encounters Date Type Department Care Team (Bo duarte Contact Info) Description 08/02/2024 2:20 PM FILLER SHREDDER HELPER Appointment [facility] [address] [place] [phone] 08/02/2024 3:00 PM FILLER SHREDDER HELPER Office Visit [facility] - Hematology/Oncology [address] [place] [phone] Remi Beckett MD [address] [place] [phone] 08/18/2024 1:45 PM FILLER SHREDDER HELPER Office Visit [facility] - ENT [address] [place] [phone] Neri Delgado MD [address] [place] [phone] 08/30/2024 2:20 PM FILLER SHREDDER HELPER Appointment [facility] [address] [place] [phone] documented as of this encounter Procedures Procedure [...] 38.5 ng/mL 03/09/2024 9:12 AM CDT [facility] ([facility]) Comment: According to the National [...] is 0.1 ng/mL Thyroglobulin measured by [facility] [place] Immunometric Assay Blood BLOOD SPECIMEN / Unknown Lab Venipuncture / Unknown 03/07/2024 12:53 PM CDT 03/07/2024 1:00 PM CDT Narrative [facility] ([facility]) - 03/09/2024 9:12 AM CDT Performed at: ??01 - [facility] [address] [place], [place] ??[id number] Systems Engineering Manager: Oral Melendez PhD, Phone: ??[phone] Yosi Bustamante MD LAB - CHEMISTRY ORD ERABLES [facility] ([facility]) [address] [place] [address], [facility] * (ABNORMAL) PHOSPHORUS BLOOD (03/07/2024 12:53 PM CDT) Phosphorus 5.2(H) 2.9 - 5.1 mg/dL 03/07/2024 1:32 PM CDT [facility] Blood BLOOD SPECIMEN / Unknown Lab Venipuncture / Unknown 03/07/2024 12:53 PM CDT 03/07/2024 1:04 PM CDT Yosi Bustamante MD LAB - CHEMISTRY ORD ERABLES Performing Organization Address City/[facility]/ZIP Co de Phone Number [facility] [address] [place] [address], [facility] [phone] * THYROGLOBULIN REFLEX PROFILE (03/07/2024 12:53 PM CDT) Thyroglobulin Antibody <1.0 0.0 - 0.9 IU/mL 03/09/2024 9:12 AM CDT [facility] ([facility]) Comment: Thyroglobulin Antibody measured by [facility] It should be noted that the presence of thyroglobulin antibodies may not be pathogenic nor diagnostic, especially at very low levels. The assay psych rn has found that four percent of individuals without evidence of thyroid disease or autoimmunity will have positive TgAb levels up to 4 IU/mL. Blood BLOOD SPECIMEN / Unknown Lab Venipuncture / Unknown 03/07/2024 12:53 PM CDT 03/07/2024 1:00 PM CDT Narrative [facility] ([facility]) - 03/09/2024 9:12 AM CDT Performed at: ??01 - [facility] [place] [address] ??[id number] Systems Engineering Manager: Oral Melendez PhD, Phone: ??[phone] Yosi Bustamante MD LAB - CHEMISTRY ORD ERABLES [facility] ([facility]) [address] [place] [address], [facility] * TSH (03/07/2024 12:53 PM CDT) TSH 0.616 0.350 - 4.940 uIU/mL 03/07/2024 1:50 PM CDT [facility] Blood BLOOD SPECIMEN / Unknown Lab Venipuncture / Unknown 03/07/2024 12:53 PM CDT 03/07/2024 1:04 PM CDT Yosi Bustamante MD LAB - CHEMISTRY ORD ERABLES [facility] [address] [place] [address], [facility] [phone] * (ABNORMAL) COMPREHENSIVE METABOLIC PANEL (03/07/2024 12:53 PM CDT) BUN 28(H) 7 - 26 mg/dL 03/07/2024 1:32 PM [facility] Creatinine 0.78 0.56 - 0.96 mg/dL 03/07/2024 1:32 PM [facility] Sodium 134(L) 136 - 145 mmol/L 03/07/2024 1:32 PM [facility] Potassium 4.0 3.5 - 4.5 mmol/L 03/07/2024 1:32 PM [facility] Chloride 99 98 - 107 mmol/L 03/07/2024 1:32 PM [facility] CO2 24 22 - 29 mmol/L 03/07/2024 1:32 PM [facility] Glucose 91 70 - 115 mg/dL 03/07/2024 1:32 PM [facility] Calcium 9.4 8.4 - 10.2 mg/dL 03/07/2024 1:32 PM [facility] Protein Total 7.6 6.0 - 8.3 g/dL 03/07/2024 1:32 PM [facility] Albumin 3.8 3.4 - 5.0 g/dL 03/07/2024 1:32 PM [facility] Bilirubin Total 0.3 0.2 - 1.2 mg/dL 03/07/2024 1:32 PM [facility] Alkaline Phosphatase 85 40 - 150 U/L 03/07/2024 1:32 PM [facility] ALT 12 5 - 55 U/L 03/07/2024 1:32 PM [facility] AST 14 5 - 34 U/L 03/07/2024 1:32 PM [facility] Anion Gap 11 6 - 16 03/07/2024 1:32 PM [facility] BUN/Creatinine Ratio 36(H) 7 - 23 03/07/2024 1:32 PM [facility] Osmolality Calculated 283 275 - 295 mOsm/kg 03/07/2024 1:32 PM [facility] Albumin/Globulin Ratio 1.0(L) 1.1 - 2.3 03/07/2024 1:32 PM [facility] eGFR by CKD-EPI 84(L) >=90 mL/min/1.7 3 m2 03/07/2024 1:32 PM [facility] Blood BLOOD SPECIMEN / Unknown Lab Venipuncture / Unknown 03/07/2024 12:53 PM CDT 03/07/2024 1:04 PM T Remi Beckett MD LAB - CHEMISTRY ORDERABLES [address] [address] [phone] * (ABNORMAL) CBC WITH DIFFERENTIAL (03/07/2024 12:53 PM CDT) WBC 8.9 4.0 - 10.7 x10E9/L 03/07/2024 1:07 PM [facility] RBC Count 5.21(H) 3.90 - 5.20 x10E12/L 03/07/2024 1:07 PM [facility] Hemoglobin 15.0 11.9 - 15.8 g/dL 03/07/2024 1:07 PM [facility] Hematocrit 44.5 34.8 - 46.1 % 03/07/2024 1:07 PM [facility] MCV 85.4 80.0 - 98.0 fL 03/07/2024 1:07 PM [facility] MCH 28.8 26.7 - 33.6 pg 03/07/2024 1:07 PM [facility] MCHC 33.7 31.7 - 36.3 g/dL 03/07/2024 1:07 PM [facility] RDW-CV 13.8 11.3 - 14.8 % 03/07/2024 1:07 PM [facility] Platelet Count 265 150 - 420 x10E9/L 03/07/2024 1:07 PM [facility] MPV 9.6 7.8 - 11.4 fL 03/07/2024 1:07 PM [facility] Neutrophil % 74.6(H) 41.0 - 74.0 % 03/07/2024 1:07 PM [facility] Lymphocyte % 16.8(L) 17.0 - 47.0 % 03/07/2024 1:07 PM [facility] Monocyte % 7.1 3.0 - 11.0 % 03/07/2024 1:07 PM [facility] Eosinophil % 1.0 0.0 - 7.0 % 03/07/2024 1:07 PM [facility] Basophil % 0.3 0.0 - 1.6 % 03/07/2024 1:07 PM [facility] Immature Granulocytes % 0.2 0.0 - 1.0 % 03/07/2024 1:07 PM [facility] Neutrophil Absolute 6.59 1.60 - 7.50 x10E9/L 03/07/2024 1:07 PM [facility] Lymphocyte Absolute 1.49 1.00 - 4.40 x10E9/L 03/07/2024 1:07 PM [facility] Monocyte Absolute 0.63 0.15 - 1.00 x10E9/L 03/07/2024 1:07 PM [facility] Eosinophil Absolute 0.09 0.00 - 0.60 x10E9/L 03/07/2024 1:07 PM [facility] Basophil Absolute 0.03 0.00 - 0.13 x10E9/L 03/07/2024 1:07 PM [facility] Blood BLOOD SPECIMEN / Unknown Lab Venipuncture / Unknown 03/07/2024 12:53 PM CDT 03/07/2024 1:03 PM T Remi Beckett MD LAB - HEMATOLOGY ORDERABLES [facility] [address] [place] [address], [facility] [phone] documented in this encounter Visit Diagnoses Diagnosis Postoperative hypothyroidism Postsurgical hypothyroidism Thyroid cancer (HCC) Malignant neoplasm of thyroid gland Hypocalcemia Other hypoparathyroidism (HCC) Malignant tumor of thyroid gland (HCC) Malignant neoplasm of thyroid gland Cancer, metastatic to bone (HCC) Secondary malignant neoplasm of bone and bone marrow Papillary carcinoma of thyroid (HCC) Malignant neoplasm of thyroid gland documented in this encounter Care Teams Proposal Rep Relationship Specialty Start Date End Date Yaya Villatoro MD [address] [phone] PCP - General Internal Medicine 05/04/23 Joseph Manzanares MD [address] [place] [phone] Internal Medicine 04/21/23 documented as of this encounter
--- OUTSIDE RECORDS SUMMARY | 2024-07-26 08:24 | XMS_ITS | Encounter Summary ---
Author Organization [facility] Health Address [address] [facility] [place] [address] Care Team Providers Care Machine Operators Name Role Phone Joseph Manzanares MD Unavailable Yaya Villatoro MD Primary Care Provider +1- [phone] Reason for Visit * Reason Onset Date Comments Appointment 02/25/2024 See note Encounter Details Date Type Department Care Team (Late Contact Info) Description 02/25/2024 Telephone [facility] - H[facility]ology/Oncology [address] [place] [address] Delvis Bethea Appointment (See note) [...] st Contact Info) Description 08/02/2024 2:20 PM PEST LOCATOR Appointment [facility] [address] [place] [phone] 08/02/2024 3:00 PM PEST LOCATOR Office Visit [facility] - Hematology/Oncology [address] [place] [phone] Remi Beckett MD [address] [place] [phone] 08/18/2024 1:45 PM PEST LOCATOR Office Visit [facility] ENT [address] [place] [phone] Neri Delgado MD [address] [place] [phone] 08/30/2024 2:20 PM PEST LOCATOR Appointment [facility] [address] [place] [address] documented as of this encounter Visit Diagnoses Not on filedocumented in this encounter Care Teams Machine Operators Relationship Specialty Start Date End Date Yaya Villatoro MD [address] [place] [phone] PCP - General Internal Medicine 05/04/23 Joseph Manzanares MD [address] [place] [phone] Internal Medicine 04/21/23 documented as of this encounter
--- OUTSIDE RECORDS SUMMARY | 2024-07-26 08:24 | XMS_ITS | Encounter Summary ---
Author Organization [facility] Health Address [address] [place] [address] Care Team Providers Care Burrer Hand Name Role Phone Joseph Manzanares MD Unavailable Yaya Villatoro MD Primary Care Provider +1- [phone] Encounter Details Date Type Department Care Team [...] Date Recorded PHQ2 TOTAL SCORE 1 11/25/2022 [facility] of Occupat ional Health - [...] st Contact Info) Description 08/02/2024 2:20 PM SERVICES CLERK Appointment [facility] [address] [place] [phone] 08/02/2024 3:00 PM SERVICES CLERK Office Visit [facility] - Hematology/Oncology [address] [place] [phone] Remi Beckett MD [address] [place] [phone] 08/18/2024 1:45 PM SERVICES CLERK Office Visit [facility] - ENT [address] [place] [phone] Neri Delgado MD [address] [place] [address] 08/30/2024 2:20 PM SERVICES CLERK Appointment [facility] [address] [place] [address] documented as of this encounter Visit Diagnoses Not on filedocumented in this encounter Care Teams Burrer Hand Relationship Specialty Start Date End Date Yaya Villatoro MD [address] [place] [phone] PCP - General Internal Medicine 05/04/23 Joseph Manzanares MD [address] [place] [phone] Internal Medicine 04/21/23 documented as of this encounter
--- OUTSIDE RECORDS SUMMARY | 2024-07-26 08:24 | XMS_ITS | Encounter Summary ---
Author Organization [facility] Health Address [address] [place] [address] Care Team Providers Care Compounder Helper Name Role Phone Joseph Manzanares MD Unavailable Yaya Villatoro MD Primary Care Provider +1- [phone] Encounter Details Date Type Department Care Team (Late st Contact Info) Description 02/25/2024 Orders Only [facility] - ENT [address] [place] [phone] Neri Delgado MD [address] [place] [address] Oropharyngeal dysphagia ; Chronic pain after cancer [...] st Contact Info) Description 08/02/2024 2:20 PM TALLOW MAKER Appointment [facility] [address] [place] [address] 08/02/2024 3:00 PM TALLOW MAKER Office Visit [facility] - Hematology/Oncology [address] [place] [phone] Remi Beckett MD [address] [place] [phone] 08/18/2024 1:45 PM TALLOW MAKER Office Visit [facility] - ENT [address] [place] [phone] Neri Delgado MD [address] [place] [phone] 08/30/2024 2:20 PM TALLOW MAKER Appointment [facility] [address] [place] [address] documented as of this encounter Visit Diagnoses Diagnosis Oropharyngeal dysphagia- Primary Dysphagia, oropharyngeal phase Chronic pain after cancer treatment documented in this encounter Care Teams Compounder Helper Relationship Specialty Start Date End Date Yaya Villatoro MD [address] [place] [phone] PCP - General Internal Medicine 05/04/23 Joseph Manzanares MD [address] [place] [phone] Internal Medicine 04/21/23 documented as of this encounter
--- OUTSIDE RECORDS SUMMARY | 2024-07-26 08:24 | XMS_ITS | Encounter Summary ---
Author Organization [facility] Health Address [address] [facility] [place] [address] Care Team Providers Care Coremaking Machine Setter Name Role Phone Joseph Manzanares MD Unavailable Yaya Villatoro MD Primary Care Provider +1- [phone] Reason for Visit * Reason Comments Dysphagia oropharyngeal dyspha chino/new sore in throat Sore Throat Painful to swallow / sore in throat * Consult, Test & Treat (Routine) - Closed Specialty Diagnoses / Procedures Referred By Contact Referred To Contact Otolaryngology / ENT-Otolaryngology Yaya Villatoro MD [address] [phone] Neri Delgado MD [address] [place] [address] Referral ID Status Reason Start Date Expiration Date Visits Re quested Visits Authorized [id number] Closed 02/22/2024 08/24/2024 1 1 Encounter Details Date Type Department Care Team (Late st Contact Info) Description 02/25/2024 2:30 PM CDT Office Visit [facility] - ENT [address] [place] [phone] Marcio Mcintosh MD [address] [place] [address] Neri Delgado MD [address] [place] [phone] Thyroid cancer (HCC) (Primary Dx); Odynophagia Social [...] 1 11/25/2022 [facility] of Occupat ional Health - [...] 2:20 PM CDT Thank you for visiting [facility] Otolaryngology - Head & Neck Surgery. [...] an appointment, please call our office at [phone] Wednesday through Wednesday from 8:30 am to4:30 pm. You can also request a routine appointment through your [employer] account. Prescription Refills Contact your pharmacy to [...] the medical exchange at and ask the screen printing press operator to page the ENT physician immigration attorney. *Caller ID blocking service will need to be turned off for your call to be returned. We also specialize in Hearing Aids, Allergy testing, swallowing disorders, voice problems, cancer diagnosis, and so much more. Visit our website at [email or web address] for information about our practice and an interactive health encyclopedia. documented in this encounter Progress Notes * Neri Delgado MD - 02/27/2024 9:21 AM CDT CC: Chief Complaint Patient presents with Dysphagia oropharyngeal dysphagia/new sore in throat Sore Throat Painful to swallow /sore in throat Diagnosis: Site: Thyroid Histology: PTC Stage: [id number] AJCC IVb Details: Positive margins, LVI +, [...] naloxone HCl (Narcan) 4 MG/0.1ML nasal spray [place] 1 (one) spray into the nose as [...] 2% and Stone-Synephrine 1/2% Endoscopy Type: Flexible Ryytj-Kuinfmnxwrrqlf-Whpxfnoszopt Procedure Details: Informed consent was obtained. The [...] fusion likely contributing to dysphagia. Discussed with EXCHANGE CLERK. - would still like to repeat MBS [...] on flex scope today Follow up: pending [facility] Neri Delgado MD 9:29 AM 02/27/24 documented in this encounter Procedure Notes * Neri Delgado MD - 02/27/2024 9:28 AM CDTAssociated Order(s): PROC ENDOSCOPY-LARYNX Procedure(s): IL LARYNGOSCOPY,FLEX FIBER,DIAGNOSTIC Pre-Procedure Diagnose(s): Thyroid cancer (HCC); Odynophagia Procedure Note Anesthesia: Lidocaine 2% and Stone-Synephrine 1/2% Endoscopy Type: Flexible Afegr-Cvoumvwxbopbfm-Cbbpqquafnta Procedure Details: Informed consent was obtained. The [...] st Contact Info) Description 08/02/2024 2:20 PM GLASSINE MACHINE TENDER Appointment [facility] [address] [place] [phone] 08/02/2024 3:00 PM GLASSINE MACHINE TENDER Office Visit [facility] - Hematology/Oncology [address] [place] [phone] Remi Beckett MD [address] [place] [phone] 08/18/2024 1:45 PM GLASSINE MACHINE TENDER Office Visit [facility] - ENT [address] [place] [phone] Neri Delgado MD [address] [place] [address] 08/30/2024 2:20 PM GLASSINE MACHINE TENDER Appointment [facility] [address] [place] [address] documented as of this encounter Procedures Procedure Name Priority Date/Time Associated Diagnosis Comments IL LARYNGOSCOPY,FLEX FIBER,DIAGNOSTIC Routine 02/27/2024 9:28 AM CDT Thyroid cancer (HCC) Odynophagia documented in this encounter Results * IL LARYNGOSCOPY,FLEX FIBER,DIAGNOSTIC (02/27/2024 9:28 AM CDT) Narrative Neri Delgado MD - 02/27/2024 9:28 AM CDT Neri Delgado MD ? 02/27/2024 ??9:32 AM Procedure Note Anesthesia: Lidocaine 2% and Stone-Synephrine 1/2% Endoscopy Type: ??Flexible Rzjhz-Pyqqrhdwhcuenp-Rajwxejbeusv Procedure Details: ??Informed consent was obtained. ??The [...] unspecified documented in this encounter Care Teams Coremaking Machine Setter Relationship Specialty Start Date End Date Yaya Villatoro MD [address] [phone] PCP - General Internal Medicine 05/04/23 Joseph Manzanares MD [address] [place] [phone] Internal Medicine 04/21/23 documented as of this encounter
--- OUTSIDE RECORDS SUMMARY | 2024-07-26 08:25 | XMS_ITS | Encounter Summary ---
Author Organization [facility] Health Address [address] [place] [address] Care Team Providers Care Launderette Attendant Name Role Phone Joseph Manzanares MD Unavailable Yaya Villatoro MD Primary Care Provider +1- [phone] Reason for Visit * Reason Onset Date Comments Medication Prior Auth Request 12/27/2023 Encounter Details Date Type Department Care Team (Late st Contact Info) Description 12/27/2023 Telephone [facility] - Hematology/Oncology [address] [place] [phone] Remi Beckett MD [address] [place] [phone] Medication Prior Auth Request Social [...] 12/24/2023 Submitted via: Cover My Meds ([place]: [id number]) Insurance: [employer] ([employer]) (p: [phone]) (f: [phone]) Case/Reference number: ID: [id number] RX Card Billing Info: BIN: [id number] PCN: [id number] GROUP: [id number] ID: [id number] Patient name on RX card Brisa Walters. Had to submit PA as such. documented in this encounter Plan of Treatment Upcoming Encounters Date Type Department Care Team (Late st Contact Info) Description 08/02/2024 2:20 PM PRINCIPAL PLANNER Appointment [facility] [address] [place] [address] 08/02/2024 3:00 PM PRINCIPAL PLANNER Office Visit [facility] - Hematology/Oncology [address] [place] [phone] Remi Beckett MD [address] [place] [phone] 08/18/2024 1:45 PM PRINCIPAL PLANNER Office Visit [facility] - ENT [address] [place] [phone] Neri Delgado MD [address] [place] [address] 08/30/2024 2:20 PM PRINCIPAL PLANNER Appointment [facility] [address] [place] [address] documented as of this encounter Visit Diagnoses Not on filedocumented in this encounter Care Teams Launderette Attendant Relationship Specialty Start Date End Date Yaya Villatoro MD [address] [phone] PCP - General Internal Medicine 05/04/23 Joseph Manzanares MD [address] [place] [phone] Internal Medicine 04/21/23 documented as of this encounter
--- OUTSIDE RECORDS SUMMARY | 2024-07-26 08:25 | XMS_ITS | Encounter Summary ---
Author Organization [facility] Health Address [address] [facility] [place] [address] Care Team Providers Care Parquet Floor Layer Name Role Phone Joseph Manzanares MD Unavailable Yaya Villatoro MD Primary Care Provider +1- [phone] Reason for Visit * Reason Onset Date Comments Medication Prior Auth Request 12/24/2023 Encounter Details Date Type Department Care Team (Late st Contact Info) Description 12/24/2023 Telephone [facility] - Hematology/Oncology [address] [place] [phone] Remi Beckett MD [address] [place] [phone] Medication Prior Auth Request Social [...] Recorded PHQ2 TOTAL SCORE 1 11/25/2022 [facility] of Occupat ional [...] PA for Lenvima has been submitted via [facility] Preston: [id number] Per Insurance: Sharath is reviewing your PA request. You may close this dialog, return to your dashboard, and perform other tasks. To check for an update later, open this request again from your dashboard. If Sharath has not replied within 24 hours for urgent requests or within 48 hours for standard requests, please contact [facility] at [phone]. Note will be updated once determination has been reached. documented in this encounter Plan of Treatment Upcoming Encounters Date Type Department Care Team (Late st Contact Info) Description 08/02/2024 2:20 PM BINDER TECHNICIAN Appointment [facility] [address] [place] [phone] 08/02/2024 3:00 PM BINDER TECHNICIAN Office Visit [facility] - Hematology/Oncology [address] [place] [phone] Remi Beckett MD [address] [place] [phone] 08/18/2024 1:45 PM BINDER TECHNICIAN Office Visit [facility] - ENT [address] [place] [phone] Neri Delgado MD [address] [place] [address] 08/30/2024 2:20 PM BINDER TECHNICIAN Appointment [facility] [address] [place] [address] documented as of this encounter Visit Diagnoses Not on filedocumented in this encounter Care Teams Parquet Floor Layer Relationship Specialty Start Date End Date Yaya Villatoro MD [address] [facility] [address] [place] [phone] PCP - General Internal Medicine 05/04/23 Joseph Manzanares MD [address] [place] [phone] Internal Medicine 04/21/23 documented as of this encounter
--- OUTSIDE RECORDS SUMMARY | 2024-07-26 08:25 | XMS_ITS | Encounter Summary ---
Author Organization [facility] Health Address [address] [place] [address] Care Team Providers Care Director Translation Name Role Phone Joseph Manzanares MD Unavailable Yaya Villatoro MD Primary Care Provider +1- [phone] Encounter Details Date Type Department Care Team [...] st Contact Info) Description 08/02/2024 2:20 PM CRANE HOOKER Appointment [facility] [address] [place] [address] 08/02/2024 3:00 PM CRANE HOOKER Office Visit [facility] - Hematology/Oncology [address] [place] [phone] Remi Beckett MD [address] [place] [phone] 08/18/2024 1:45 PM CRANE HOOKER Office Visit [facility] - ENT [address] [place] [phone] Neri Delgado MD [address] [place] [address] 08/30/2024 2:20 PM CRANE HOOKER Appointment [facility] [address] [place] [address] documented as of this encounter Visit Diagnoses Not on filedocumented in this encounter Care Teams Director Translation Relationship Specialty Start Date End Date Yaya Villatoro MD [address] [place] [phone] PCP - General Internal Medicine 05/04/23 Joseph Manzanares MD [address] [place] [phone] Internal Medicine 04/21/23 documented as of this encounter
--- OUTSIDE RECORDS SUMMARY | 2024-07-26 08:25 | XMS_ITS | Encounter Summary ---
Author Organization [facility] Health Address [address] [facility] [place] [address] Care Team Providers Care Bingo Checker Name Role Phone Joseph Manzanares MD Unavailable Yaya Villatoro MD Primary Care Provider +1- [phone] Encounter Details Date Type Department Care Team (Latest Contact Info) Description 01/14/2024 11:09 AM CDT - 01/14/2024 11:59 PM T Hospital Encounter [facility] [address] [place] [address] Yaya Villatoro MD [address] [facility] [address] [place] [phone] Discharge Disposition: Home or Self [...] Date Recorded PHQ2 TOTAL SCORE 1 11/25/2022 [facility] [place] of Occupat ional Health - Occupational Stress [...] naloxone HCl (Narcan) 4 MG/0.1ML nasal spray [place] 1 (one) spray into the nose as [...] mouth once a day. 90 Each 12/14/2023 documented as of this encounter Plan of Treatment Upcoming Encounters Date Type Department Care Team (Late st Contact Info) Description 08/02/2024 2:20 PM TROMBONE SLIDE ASSEMBLER Appointment [facility] [address] [place] [address] 08/02/2024 3:00 PM TROMBONE SLIDE ASSEMBLER Office Visit [facility] - Hematology/Oncology [address] [place] [phone] Remi Beckett MD [address] [place] [phone] 08/18/2024 1:45 PM TROMBONE SLIDE ASSEMBLER Office Visit [facility] - ENT [address] [place] [phone] Neri Delgado MD [address] [place] [address] 08/30/2024 2:20 PM TROMBONE SLIDE ASSEMBLER Appointment [facility] [address] [place] [address] documented as of this encounter Procedures Procedure Name Priority Date/Time Associated Diagnosis Comments CBC W AUTO DIFFERENTIAL STAT 01/14/2024 11:13 AM CDT Papillary carcinoma of thyroid (HCC) COMPREHENSIVE METABOLIC PANEL STAT 01/14/2024 11:13 AM CDT Papillary carcinoma of thyroid (HCC) documented in this encounter Results * (ABNORMAL) COMPREHENSIVE METABOLIC PANEL (01/14/2024 11:13 AM CDT) BUN 38(H) 7 - 26 mg/dL 01/14/2024 11:44 AM [facility] Creatinine 0.94 0.56 - 0.96 mg/dL 01/14/2024 11:44 AM [facility] Sodium 137 136 - 145 mmol/L 01/14/2024 11:44 AM [facility] Potassium 4.0 3.5 - 4.5 mmol/L 01/14/2024 11:44 AM [facility] Chloride 105 98 - 107 mmol/L 01/14/2024 11:44 AM [facility] CO2 21(L) 22 - 29 mmol/L 01/14/2024 11:44 AM [facility] Glucose 101 70 - 115 mg/dL 01/14/2024 11:44 AM [facility] Calcium 9.0 8.4 - 10.2 mg/dL 01/14/2024 11:44 AM [facility] Protein Total 7.6 6.0 - 8.3 g/dL 01/14/2024 11:44 AM [facility] Albumin 3.6 3.4 - 5.0 g/dL 01/14/2024 11:44 AM [facility] Bilirubin Total 0.3 0.2 - 1.2 mg/dL 01/14/2024 11:44 AM [facility] Alkaline Phosphatase 97 40 - 150 U/L 01/14/2024 11:44 AM [facility] ALT 20 5 - 55 U/L 01/14/2024 11:44 AM [facility] AST 20 5 - 34 U/L 01/14/2024 11:44 AM [facility] Anion Gap 11 6 - 16 01/14/2024 11:44 AM [facility] BUN/Creatinine Ratio 40(H) 7 - 23 01/14/2024 11:44 AM [facility] Osmolality Calculated 293 275 - 295 mOsm/kg 01/14/2024 11:44 AM [facility] Albumin/Globulin Ratio 0.9(L) 1.1 - 2.3 01/14/2024 11:44 AM [facility] eGFR by CKD-EPI 67(L) >=90 mL/min/1.7 3 m2 01/14/2024 11:44 AM [facility] Blood BLOOD SPECIMEN / Unknown Lab Venipuncture / Unknown 01/14/2024 11:13 AM CDT 01/14/2024 11:18 AM CDT Remi Beckett MD LAB - CHEMISTRY ORDERABLES Performing Organization Address City/State/[facility] Co de Phone Number [facility] [address] [place] [phone] [phone] * (ABNORMAL) CBC WITH DIFFERENTIAL (01/14/2024 11:13 AM T) WBC 8.6 4.0 - 10.7 x10E9/L 01/14/2024 11:30 AM [facility] RBC Count 5.49(H) 3.90 - 5.20 x10E12/L 01/14/2024 11:30 AM [facility] Hemoglobin 15.3 11.9 - 15.8 g/dL 01/14/2024 11:30 AM [facility] Hematocrit 44.4 34.8 - 46.1 % 01/14/2024 11:30 AM [facility] MCV 80.9 80.0 - 98.0 fL 01/14/2024 11:30 AM [facility] MCH 27.9 26.7 - 33.6 pg 01/14/2024 11:30 AM [facility] MCHC 34.5 31.7 - 36.3 g/dL 01/14/2024 11:30 AM [facility] RDW-CV 13.3 11.3 - 14.8 % 01/14/2024 11:30 AM [facility] Platelet Count 275 150 - 420 x10E9/L 01/14/2024 11:30 AM [facility] MPV 10.0 7.8 - 11.4 fL 01/14/2024 11:30 AM [facility] Neutrophil % 65.6 41.0 - 74.0 % 01/14/2024 11:30 AM [facility] Lymphocyte % 19.0 17.0 - 47.0 % 01/14/2024 11:30 AM [facility] Monocyte % 8.8 3.0 - 11.0 % 01/14/2024 11:30 AM [facility] Eosinophil % 5.8 0.0 - 7.0 % 01/14/2024 11:30 AM [facility] Basophil % 0.6 0.0 - 1.6 % 01/14/2024 11:30 AM [facility] Immature Granulocytes % 0.2 0.0 - 1.0 % 01/14/2024 11:30 AM [facility] Neutrophil Absolute 5.67 1.60 - 7.50 x10E9/L 01/14/2024 11:30 AM [facility] Lymphocyte Absolute 1.64 1.00 - 4.40 x10E9/L 01/14/2024 11:30 AM [facility] Monocyte Absolute 0.76 0.15 - 1.00 x10E9/L 01/14/2024 11:30 AM [facility] Eosinophil Absolute 0.50 0.00 - 0.60 x10E9/L 01/14/2024 11:30 AM [facility] Basophil Absolute 0.05 0.00 - 0.13 x10E9/L 01/14/2024 11:30 AM [facility] Blood BLOOD SPECIMEN / Unknown Lab Venipuncture / Unknown 01/14/2024 11:13 AM CDT 01/14/2024 11:18 AM T Remi Beckett MD LAB - HEMATOLOGY ORDERABLES [facility] [address] [place] [address] [phone] documented in this encounter Visit Diagnoses Diagnosis Papillary carcinoma of thyroid (HCC) Malignant neoplasm of thyroid gland documented in this encounter Care Teams Bingo Checker Relationship Specialty Start Date End Date Yaya Villatoro MD [address] [facility] [address] [place] [phone] PCP - General Internal Medicine 05/04/23 Joseph Manzanares MD [address] [place] [phone] Internal Medicine 04/21/23 documented as of this encounter
--- OUTSIDE RECORDS SUMMARY | 2024-07-26 08:25 | XMS_ITS | Encounter Summary ---
Author Organization [facility] Health Address [address] [facility] [address] Care Team Providers Care International Relations Teacher Name Role Phone Joseph Manzanares MD Unavailable Yaya Villatoro MD Primary Care Provider +1- [phone] Encounter Details Date Type Department Care Team (Latest Contact Info) Description 02/07/2024 2:56 PM CDT - 02/07/2024 11:59 PM CDT Hospital Encounter [facility] [address] [facility], 2nd [place] [address] Discharge Disposition: Home or Self Care Social [...] naloxone HCl (Narcan) 4 MG/0.1ML nasal spray [place] 1 (one) spray into the nose as [...] st Contact Info) Description 08/02/2024 2:20 PM EQUIPMENT ASSOCIATE Appointment [facility] [address] [place] [address] 08/02/2024 3:00 PM EQUIPMENT ASSOCIATE Office Visit [facility] - Hematology/Oncology [address] [place] [address] [phone] Remi Beckett MD [address] [place] [phone] 08/18/2024 1:45 PM EQUIPMENT ASSOCIATE Office Visit [facility] - ENT [address] [place] [address] [phone] Neri Delgado MD [address] [place] [address] 08/30/2024 2:20 PM EQUIPMENT ASSOCIATE Appointment [facility] [address] [place] [address] documented as of this encounter Procedures Procedure Name Priority Date/Time Associated Diagnosis Comments CBC W AUTO DIFFERENTIAL STAT 02/07/2024 3:06 PM CDT Papillary carcinoma of thyroid (HCC) COMPREHENSIVE METABOLIC PANEL STAT 02/07/2024 3:06 PM CDT Papillary carcinoma of thyroid (HCC) documented in this encounter Results * (ABNORMAL) COMPREHENSIVE METABOLIC PANEL (02/07/2024 3:06 PM CDT) BUN 27(H) 7 - 26 mg/dL 02/07/2024 3:59 PM CDT [facility] Creatinine 0.68 0.56 - 0.96 mg/dL 02/07/2024 3:59 PM CDT [facility] Sodium 134(L) 136 - 145 mmol/L 02/07/2024 3:59 PM CDT [facility] Potassium 4.2 3.5 - 4.5 mmol/L 02/07/2024 3:59 PM CDT [facility] Chloride 102 98 - 107 mmol/L 02/07/2024 3:59 PM CDT [facility] CO2 23 22 - 29 mmol/L 02/07/2024 3:59 PM [facility] Glucose 93 70 - 115 mg/dL 02/07/2024 3:59 PM [facility] Calcium 8.5 8.4 - 10.2 mg/dL 02/07/2024 3:59 PM [facility] Protein Total 7.2 6.0 - 8.3 g/dL 02/07/2024 3:59 PM [facility] Albumin 3.6 3.4 - 5.0 g/dL 02/07/2024 3:59 PM [facility] Bilirubin Total 0.3 0.2 - 1.2 mg/dL 02/07/2024 3:59 PM [facility] Alkaline Phosphatase 94 40 - 150 U/L 02/07/2024 3:59 PM [facility] ALT 17 5 - 55 U/L 02/07/2024 3:59 PM [facility] AST 18 5 - 34 U/L 02/07/2024 3:59 PM [facility] Anion Gap 9 6 - 16 02/07/2024 3:59 PM [facility] BUN/Creatinine Ratio 40(H) 7 - 23 02/07/2024 3:59 PM [facility] Osmolality Calculated 283 275 - 295 mOsm/kg 02/07/2024 3:59 PM [facility] Albumin/Globulin Ratio 1.0(L) 1.1 - 2.3 02/07/2024 3:59 PM [facility] eGFR by CKD-EPI >90 >=90 mL/min/1.7 3 m2 02/07/2024 3:59 PM [facility] Blood BLOOD SPECIMEN / Unknown Lab Venipuncture / Unknown 02/07/2024 3:06 PM CDT 02/07/2024 3:28 PM T Remi Beckett MD LAB - CHEMISTRY ORDERABLES [facility] [address] [place] [address], [facility] [phone] * CBC WITH DIFFERENTIAL (02/07/2024 3:06 PM CDT) [facility] WBC 8.7 4.0 - 10.7 x10E9/L 02/07/2024 3:33 PM [facility] RBC Count 5.00 3.90 - 5.20 x10E12/L 02/07/2024 3:33 PM [facility] Hemoglobin 14.3 11.9 - 15.8 g/dL 02/07/2024 3:33 PM [facility] Hematocrit 42.5 34.8 - 46.1 % 02/07/2024 3:33 PM [facility] MCV 85.0 80.0 - 98.0 fL 02/07/2024 3:33 PM [facility] MCH 28.6 26.7 - 33.6 pg 02/07/2024 3:33 PM [facility] MCHC 33.6 31.7 - 36.3 g/dL 02/07/2024 3:33 PM [facility] RDW-CV 13.8 11.3 - 14.8 % 02/07/2024 3:33 PM [facility] Platelet Count 313 150 - 420 x10E9/L 02/07/2024 3:33 PM [facility] MPV 9.4 7.8 - 11.4 fL 02/07/2024 3:33 PM [facility] Neutrophil % 69.0 41.0 - 74.0 % 02/07/2024 3:33 PM [facility] Lymphocyte % 20.4 17.0 - 47.0 % 02/07/2024 3:33 PM [facility] Monocyte % 7.7 3.0 - 11.0 % 02/07/2024 3:33 PM [facility] Eosinophil % 2.0 0.0 - 7.0 % 02/07/2024 3:33 PM [facility] Basophil % 0.7 0.0 - 1.6 % 02/07/2024 3:33 PM [facility] Immature Granulocytes % 0.2 0.0 - 1.0 % 02/07/2024 3:33 PM [facility] Neutrophil Absolute 5.98 1.60 - 7.50 x10E9/L 02/07/2024 3:33 PM CDT [facility] Lymphocyte Absolute 1.77 1.00 - 4.40 x10E9/L 02/07/2024 3:33 PM CDT [facility] Monocyte Absolute 0.67 0.15 - 1.00 x10E9/L 02/07/2024 3:33 PM CDT [facility] Eosinophil Absolute 0.17 0.00 - 0.60 x10E9/L 02/07/2024 3:33 PM CDT [facility] Basophil Absolute 0.06 0.00 - 0.13 x10E9/L 02/07/2024 3:33 PM CDT [facility] Blood BLOOD SPECIMEN / Unknown Lab Venipuncture / Unknown 02/07/2024 3:06 PM CDT 02/07/2024 3:28 PM CDT Remi Beckett MD LAB - HEMATOLOGY ORDERABLES Performing Organization Address [facility] de Phone Number [facility] [address] [place] [address] [phone] documented in this encounter Visit Diagnoses Diagnosis Papillary carcinoma of thyroid (HCC) Malignant neoplasm of thyroid gland documented in this encounter Care Teams International Relations Teacher Relationship Specialty Start Date End Date Yaya Villatoro MD [address] [phone] PCP - General Internal Medicine 05/04/23 Joseph Manzanares MD [address] [place] [phone] Internal Medicine 04/21/23 documented as of this encounter
--- OUTSIDE RECORDS SUMMARY | 2024-07-26 08:25 | XMS_ITS | Encounter Summary ---
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 Cancer, metastatic to bone (HCC) Procedures MRI CERVICAL SPINE WWO CONT Marcio Mcintosh MD [address] [place] [address] [facility] Mri [address] [place] [address] Referral ID Status Reason Start Date Expiration Date Visits Re quested Visits Authorized [id number] Closed 02/25/2024 05/25/2024 1 1 Encounter Details Date Type Department Care Team (Latest Contact Info) Description 02/25/2024 11:30 AM CDT - 02/25/2024 11:59 PM CDT Hospital Encounter [facility] MRI [address] [place] [address] Marcio Mcintosh MD [address] [place] [address] Discharge Disposition: Home or Self [...] naloxone HCl (Narcan) 4 MG/0.1ML nasal spray [place] 1 (one) spray into the nose as [...] Contact Info) Description 08/02/2024 2:20 PM LOCOMOTIVE ELECTRICIAN Appointment [facility] [address] [place] [address] 08/02/2024 3:00 PM LOCOMOTIVE ELECTRICIAN Office Visit [facility] - Hematology/Oncology [address] [place] [phone] Remi Beckett MD [address] [place] [phone] 08/18/2024 1:45 PM LOCOMOTIVE ELECTRICIAN Office Visit [facility] - ENT [address] [place] [address] [phone] Neri Delgado MD [address] [place] [address] 08/30/2024 2:20 PM LOCOMOTIVE ELECTRICIAN Appointment [facility] [address] [place] [address] documented as of this encounter Procedures Procedure [...] DATE/TIME OF EXAM: ??02/25/2024 12:38 PM, LOCATION ??[facility] INDICATION: C73: Thyroid cancer (HCC) C79.51: Metastasis [...] DATE/TIME OF EXAM: 02/25/2024 12:38 PM, LOCATION [facility] INDICATION: C73: Thyroid cancer (HCC) C79.51: Metastasis [...] mL documented in this encounter Care Teams Sound Recordist Relationship Specialty Start Date End Date Yaya Villatoro MD [address] [place] [address] PCP - General Internal Medicine 05/04/23 Joseph Manzanares MD [address] [place] [phone] Internal Medicine 04/21/23 documented as of this encounter
--- OUTSIDE RECORDS SUMMARY | 2024-07-26 08:25 | XMS_ITS | Encounter Summary ---
Author Organization [facility] Health Address [address] [facility] [place] [address] Care Team Providers Care At Risk Paraprofessional Name Role Phone Joseph Manzanares MD Unavailable Yaya Villatoro MD Primary Care Provider +1- [phone] Encounter Details Date Type Department Care Team [...] st Contact Info) Description 08/02/2024 2:20 PM CANDY ATTENDANT Appointment [facility] [address] [place] [address] 08/02/2024 3:00 PM CANDY ATTENDANT Office Visit [facility] - Hematology/Oncology [address] [place] [phone] Remi Beckett MD [address] [place] [phone] 08/18/2024 1:45 PM CANDY ATTENDANT Office Visit [facility] - ENT [address] [place] [phone] Neri Delgado MD [address] [place] [address] 08/30/2024 2:20 PM CANDY ATTENDANT Appointment [facility] [address] [place] [address] documented as of this encounter Visit Diagnoses Not on filedocumented in this encounter Care Teams At Risk Paraprofessional Relationship Specialty Start Date End Date Yaya Villatoor MD [address] [place] [phone] PCP - General Internal Medicine 05/04/23 Joseph Manzanares MD [address] [place] [phone] Internal Medicine 04/21/23 documented as of this encounter
--- OUTSIDE RECORDS SUMMARY | 2024-07-26 08:25 | XMS_ITS | Encounter Summary ---
Author Organization [facility] Health Address [address] 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 --10/2023: Discussed with her rehab therapist Dr. Bustamante. She is not a good candidate for repeatRAI, which also does not have good bone/PRESETTER OPERATOR penetration. Hence decided to initiate lenvatinib [...] naloxone HCl (Narcan) 4 MG/0.1ML nasal spray [place] 1 (one) spray into the nose as [...] complications. Eliceo Pena MD, PGY-IV Hematology-Oncology Fellow [facility] Attending Physician Supervisory Note I personally interviewed and examined the patient with the warehouse helper. I confirm the findings and agree with the assessment and plan. Remi Beckett MD Tool Maker Benchspinner operator Department of Hematology & Medical Oncology [facility]: documented in this encounter Plan of Treatment Upcoming Encounters Date Type Department Care Team (Late st Contact Info) Description 08/02/2024 2:20 PM STUDIO PRODUCER Appointment [facility] [address] [place] [address] 08/02/2024 3:00 PM STUDIO PRODUCER Office Visit [facility] - Hematology/Oncology [address] [place] [phone] Remi Beckett MD [address] [place] [phone] 08/18/2024 1:45 PM STUDIO PRODUCER Office Visit [facility] - ENT [address] [place] [address] [phone] Neri Delgado MD [address] [place] [address] 08/30/2024 2:20 PM STUDIO PRODUCER Appointment [facility] [place] [address] documented as of this encounter Visit Diagnoses Diagnosis Encounter for antineoplastic chemotherapy- Primary Papillary carcinoma of thyroid (HCC) Malignant neoplasm of thyroid gland Cancer, metastatic to bone (HCC) Secondary malignant neoplasm of bone and bone marrow Mucositis due to antineoplastic therapy Mucositis (ulcerative) due to antineoplastic therapy Left shoulder pain, unspecified chronicity documented in this encounter Care Teams Napping Machine Operator Relationship Specialty Start Date End Date Yaya Villatoro MD [address] [phone] PCP - General Internal Medicine 05/04/23 Joseph Manzanares MD [address] [place] [address] Internal Medicine 04/21/23 documented as of this encounter
--- OUTSIDE RECORDS SUMMARY | 2024-07-26 08:25 | XMS_ITS | Encounter Summary ---
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 Pet Op [address] [place] [address] Referral ID Status Reason Start Date Expiration Date Visits Re quested Visits Authorized [id number] Closed 02/25/2024 05/25/2024 1 1 Encounter Details Date Type Department Care Team (Latest Contact Info) Description 02/25/2024 10:41 AM CDT - 02/25/2024 11:29 AM CDT Hospital Encounter [facility] PET [address] [place] [address] Marcio Mcintosh MD [address] [place] [address] Discharge Disposition: Home or Self [...] naloxone HCl (Narcan) 4 MG/0.1ML nasal spray [place] 1 (one) spray into the nose as [...] st Contact Info) Description 08/02/2024 2:20 PM PAYMENT PROCESSOR Appointment [facility] [address] [place] [address] 08/02/2024 3:00 PM PAYMENT PROCESSOR Office Visit [facility] - Hematology/Oncology [address] [place] [address] [phone] Remi Beckett MD [address] [place] [phone] 08/18/2024 1:45 PM PAYMENT PROCESSOR Office Visit [facility] - ENT [address] [place] [address] [phone] Neri Delgado MD [address] [place] [address] 08/30/2024 2:20 PM PAYMENT PROCESSOR Appointment [facility] [address] [place] [address] documented as of this encounter Procedures Procedure [...] lung zone. > Dictated by Tex Andrew (Insurance Professional) 02/25/2024 10:45 AM ITiesha DO have personally [...] lung zone. > Dictated by Tex Andrew (Insurance Professional) 02/25/2024 10:45 AM Tiesha Mckeon DO have personally reviewed and interpreted this examination/study. > Interpreting Provider: Tiesha Sy DO on 02/25/2024 4:00 PM Marcio Mcintosh MD [place] ORDERABLES documented in this encounter Visit Diagnoses Not on filedocumented in this encounter Care Teams Concrete Technician Relationship Specialty Start Date End Date Yaya Villatoro MD [address] [phone] PCP - General Internal Medicine 05/04/23 Joseph Manzanares MD [address] [place] [phone] Internal Medicine 04/21/23 documented as of this encounter
--- OUTSIDE RECORDS SUMMARY | 2024-07-26 08:25 | XMS_ITS | Encounter Summary ---
Author Organization [facility] Health Address [address] [facility] [place] [address] Care Team Providers Care Braker Passenger Train Name Role Phone Joseph Manzanares MD Unavailable Yaya Villatoro MD Primary Care Provider +1- [phone] Encounter Details Date Type Department Care Team [...] st Contact Info) Description 08/02/2024 2:20 PM CASH SPECIALIST Appointment [facility] [address] [place] [address] 08/02/2024 3:00 PM CASH SPECIALIST Office Visit [facility] - Hematology/Oncology [address] [place] [phone] Remi Beckett MD [address] [place] [phone] 08/18/2024 1:45 PM CASH SPECIALIST Office Visit [facility] - ENT [address] [place] [phone] Neri Delgado MD [address] [place] [address] 08/30/2024 2:20 PM CASH SPECIALIST Appointment [facility] [address] [place] [address] documented as of this encounter Visit Diagnoses Not on filedocumented in this encounter Care Teams Braker Passenger Train Relationship Specialty Start Date End Date Yaya Villatoro MD [address] [place] [phone] PCP - General Internal Medicine 05/04/23 Jsoeph Manzanares MD [address] [place] [phone] Internal Medicine 04/21/23 documented as of this encounter
--- OUTSIDE RECORDS SUMMARY | 2024-07-26 08:25 | XMS_ITS | Encounter Summary ---
Author Organization [facility] Health Address [address] [facility] [place] [address] Care Team Providers Care Salesperson Driver Name Role Phone Joseph Manzanares MD Unavailable Yaya Villatoro MD Primary Care Provider +1- [phone] Encounter Details Date Type Department Care Team [...] st Contact Info) Description 08/02/2024 2:20 PM WARP PLACER Appointment [facility] [address] [place] [address] 08/02/2024 3:00 PM WARP PLACER Office Visit [facility] - Hematology/Oncology [address] [place] [phone] Remi Beckett MD [address] [place] [phone] 08/18/2024 1:45 PM WARP PLACER Office Visit [facility] - ENT [address] [place] [phone] Neri Delgado MD [address] [place] [address] 08/30/2024 2:20 PM WARP PLACER Appointment [facility] [address] [place] [address] documented as of this encounter Visit Diagnoses Not on filedocumented in this encounter Care Teams Salesperson Driver Relationship Specialty Start Date End Date Yaya Villatoro MD [address] [place] [phone] PCP - General Internal Medicine 05/04/23 Joseph Manzanares MD [address] [place] [phone] Internal Medicine 04/21/23 documented as of this encounter
--- OUTSIDE RECORDS SUMMARY | 2024-07-26 08:25 | XMS_ITS | Encounter Summary ---
Author Organization [facility] Health Address [address] [facility] [address] [place] [address] Care Team Providers Care Catering Convention Services Manager Name Role Phone Joseph Manzanares MD Unavailable Yaya Villatoro MD Primary Care Provider +1- [phone] Encounter Details Date Type Department Care Team [...] st Contact Info) Description 08/02/2024 2:20 PM PLEXIGLAS FORMER Appointment [facility] [address] [place] [address] 08/02/2024 3:00 PM PLEXIGLAS FORMER Office Visit [facility] - Hematology/Oncology [address] [place] [phone] Remi Beckett MD [address] [place] [phone] 08/18/2024 1:45 PM PLEXIGLAS FORMER Office Visit [facility] - ENT [address] [place] [phone] Neri Delgado MD [address] [place] [address] 08/30/2024 2:20 PM PLEXIGLAS FORMER Appointment [facility] [address] [place] [place] [address] documented as of this encounter Visit Diagnoses Not on filedocumented in this encounter Care Teams Catering Convention Services Manager Relationship Specialty Start Date End Date Yaya Villatoro MD [address] [place] [phone] PCP - General Internal Medicine 05/04/23 Joseph Manzanares MD [address] [place] [address] [phone] Internal Medicine 04/21/23 documented as of this encounter
--- OUTSIDE RECORDS SUMMARY | 2024-07-26 08:25 | XMS_ITS | Encounter Summary ---
Author Organization [facility] Health Address [address] [facility] [place] [address] Care Team Providers Care Timber Feller Name Role Phone Joseph Manzanares MD Unavailable Yaya Villatoro MD Primary Care Provider +1- [phone] Reason for Visit * Reason Comments Refill Request Encounter Details Date Type Department Care Team (Late st Contact Info) Description 12/17/2023 Refill [facility] - [facility] Med [address] [facility], [place] [address] Tiana Naylor, DO [address] [facility] [place] [address] Refill Request Social History Tobacco Use Types [...] st Contact Info) Description 08/02/2024 2:20 PM CALENDER INSPECTOR Appointment [facility] [address] [place] [address] 08/02/2024 3:00 PM CALENDER INSPECTOR Office Visit [facility] - Hematology/Oncology [address] [place] [address] [phone] Remi Beckett MD [address] [place] [phone] 08/18/2024 1:45 PM CALENDER INSPECTOR Office Visit [facility] - ENT [address] [place] [address] [phone] Neri Delgado MD [address] [place] [address] 08/30/2024 2:20 PM CALENDER INSPECTOR Appointment [facility] [address] [place] [phone] documented as of this encounter Visit Diagnoses Diagnosis Hyperlipidemia, unspecified hyperlipidemia type documented in this encounter Care Teams Timber Feller Relationship Specialty Start Date End Date Yaya Villatoro MD [address] [place] [phone] PCP - General Internal Medicine 05/04/23 Joseph Manzanares MD [address] [place] [address] [phone] Internal Medicine 04/21/23 documented as of this encounter
--- OUTSIDE RECORDS SUMMARY | 2024-07-26 08:25 | XMS_ITS | Encounter Summary ---
Author Organization [facility] Address [address] [place] [address] Care Team Providers Care Microbiology Lab Assistant Name Role Phone Joseph Manzanares MD Unavailable Yaya Villatoro MD Primary Care Provider [phone]- [phone] Encounter Details Date Type Department Care Team [...] st Contact Info) Description 08/02/2024 2:20 PM PERINATAL SOCIAL WORKER Appointment [facility] [address] [place] [address] 08/02/2024 3:00 PM PERINATAL SOCIAL WORKER Office Visit [facility] - Hematology/Oncology [address] [place] [phone] Remi Beckett MD [address] [place] [phone] 08/18/2024 1:45 PM PERINATAL SOCIAL WORKER Office Visit [facility] - ENT [address] [place] [phone] Neri Delgado MD [address] [place] [address] 08/30/2024 2:20 PM PERINATAL SOCIAL WORKER Appointment [facility] [address] [place] [phone] documented as of this encounter Visit Diagnoses Not on filedocumented in this encounter Care Teams Microbiology Lab Assistant Relationship Specialty Start Date End Date Yaya Villatoro MD [address] [place] [phone] PCP - General Internal Medicine 05/04/23 Joseph Manzanares MD [address] [place] [phone] Internal Medicine 04/21/23 documented as of this encounter
--- OUTSIDE RECORDS SUMMARY | 2024-07-26 08:25 | XMS_ITS | Encounter Summary ---
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 Cancer, metastatic to bone (HCC) Procedures PET CT WHOLE BODY Marcio Mcintosh MD [address] [place] [address] [facility] [address] [place] [address] Referral ID Status Reason Start Date Expiration Date Visits Re quested Visits Authorized [id number] Closed 02/25/2024 05/25/2024 1 1 Reason for Visit * Radiology Services (Routine) - Closed Specialty Diagnoses / Procedures Referred By Contac t Referred To Contact Positron Emission Tomography Diagnoses Thyroid cancer (HCC) Metastasis to bone (HCC) Papillary carcinoma of thyroid (HCC) 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 Cancer, metastatic to bone (HCC) Procedures PET CT WHOLE BODY Marcio Mcintosh MD [address] [place] [address] [facility] [address] [place] [address] Referral ID Status Reason Start Date Expiration Date Visits Re quested Visits Authorized [id number] Closed 02/25/2024 05/25/2024 1 1 Encounter Details Date Type Department Care Team (Latest Contact Info) Description 02/25/2024 9:45 AM CDT - 02/25/2024 10:40 AM CDT Hospital Encounter [facility] [address] [place] [phone] Marcio Mcintosh MD [address] [place] [address] Discharge Disposition: Home or Self [...] 1 11/25/[address]22 [facility] - Occupational Stress Questionnaire Answer Date [...] naloxone HCl (Narcan) 4 MG/0.1ML nasal spray Victoria 1 (one) spray into the nose as [...] st Contact Info) Description 08/02/2024 2:20 PM CHILDREN'S TUTOR Appointment [facility] [address] [place] [address] 08/02/2024 3:00 PM CHILDREN'S TUTOR Office Visit [facility] - Hematology/Oncology [address] [place] [phone] Remi Beckett MD [address] [place] [address] 08/18/2024 1:45 PM CHILDREN'S TUTOR Office Visit [facility] - ENT [address] [place] [address] Neri Delgado MD [address] [place] [address] 08/30/2024 2:20 PM CHILDREN'S TUTOR Appointment [facility] [address] [place] [address] documented as of this encounter Procedures Procedure Name Priority Date/Time Associated Diagnosis Comments PET CT WHOLE BODY Routine 02/25/2024 11: 50 AM CDT Thyroid cancer (CMS/HCC) Metastasis to bone (HCC) Papillary carcinoma of thyroid (HCC) 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 > Dictated by Tex Andrew (Proof Sorter) 02/25/2024 10:45 AM ITiesha, DO have personally reviewed and interpreted this [...] for clinical correlation. Procedure Note Tiesha Sy, - 02/25/2024 PROCEDURE: PET CT WHOLE BODY [...] lung zone. > Dictated by Tex Andrew (Proof Sorter) 02/25/2024 10:45 AM I, Tiesha Sy DO have personally reviewed and interpreted this examination/study. > Interpreting Provider: Tiesha Sy DO on 02/25/2024 4:00 PM Marcio Mcintosh MD NM ORDERABLES * GLUCOSE SCREEN - POCT (IP) [facility] (02/25/2024 10:15 AM CDT) Glucose WB/POC 101 70 - 115 mg/dL [facility] POCT TESTING Blood BLOOD SPECIMEN / Unknown 02/25/2024 10:15 AM CDT Marcio Mcintosh MD LAB - POINT OF CARE ORDERABLES [facility] POCT TEST[facility] [address] [place] [address], [facility] [phone] documented in this encounter Visit Diagnoses Diagnosis [...] millicuries documented in this encounter Care Teams Manager Commission Relationship Specialty Start Date End Date Yaya Villatoro MD [address] [place] [phone] PCP - General Internal Medicine 05/04/23 Joseph Manzanares MD [address] [place] [phone] Internal Medicine 04/21/23 documented as of this encounter
--- OUTSIDE RECORDS SUMMARY | 2024-07-26 08:25 | XMS_ITS | Encounter Summary ---
Author Organization [facility] Address [address] [place] [address] Care Team Providers Care General Accounting Manager Name Role Phone Joseph Manzanares MD Unavailable Yaya Villatoro MD Primary Care Provider [phone]- [phone] Reason for Referral * Consultation (Routine) - Pending Review Specialty Diagnoses / Procedures Referred By Yuan robins Referred To Contact Diagnoses Papillary carcinoma of thyroid (HCC) Remi Beckett MD [address] [place] [address] [address] [place] Referral ID Status Reason Start Date Expiration Date Visits Requested Visits Authorized [id number] Pending Review Specialty Services Required 01/14/2024 01/13/2025 1 1 Reason for Visit * Reason Comments Follow-up 4wk Pain Arm Left numb Pain Leg Left Encounter Details Date Type Department Care Team (Latest Contact Info) Description 01/14/2024 11:20 AM CDT Office Visit [facility] - Hematology/Oncology [address] [place] [address] Remi Beckett MD [address] [place] [address] Papillary carcinoma of thyroid (HCC) [...] Date Recorded PHQ2 TOTAL SCORE 1 11/25/2022 [facility]at [facility] - Occupational Stress [...] the physicians and other specialists at the [facility] Hematology & On[facility]. [facility]: For symptom management or prescription questions during business hours (Mon-Fri 8AM-4:30PM), pleasecall the triage nurse. Outside of business hours, please call the hematology/oncology doctor on-call. 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 --10/2023: Discussed with her electrician apprentice powerhouse Dr. Bustamante. She is not a good candidate for repeatRAI, which also does not have good bone/CHRONOMETER ASSEMBLER penetration. Hence decided to initiate lenvatinib 24 [...] naloxone HCl (Narcan) 4 MG/0.1ML nasal spray Page 1 (one) spray into the nose as [...] dehydration, wound healing complications. Remi Beckett MD [employer] Specialistcare connector Department of Hematology & Medical Oncology [facility]: documented in this encounter Plan of Treatment Upcoming Encounters Date Type Department Care Team (Late st Contact Info) Description 08/02/2024 2:20 PM PILOT BOAT OPERATOR Appointment [facility] [address] [place] [phone] 08/02/2024 3:00 PM PILOT BOAT OPERATOR [facility] - [facility]ology/Oncology [address] [place] [phone] Remi Beckett MD [address] [place] [phone] 08/18/2024 1:45 PM PILOT BOAT OPERATOR Office Visit [facility] - ENT [address] [place] [phone] Neri Delgado MD [address] [place] [address] 08/30/2024 2:20 PM PILOT BOAT OPERATOR Appointment [facility] [address] [place] [phone] Scheduled Referrals Name Type Priority Associated Diagnoses [...] marrow documented in this encounter Care Teams General Accounting Manager Relationship Specialty Start Date End Date Yaya Villatoro MD [address] [place] [phone] PCP - General Internal Medicine 05/04/23 Joseph Manzanares MD [address] [place] [phone] Internal Medicine 04/21/23 documented as of this encounter
--- OUTSIDE RECORDS SUMMARY | 2024-07-26 08:25 | XMS_ITS | Encounter Summary ---
Author Organization [facility] Health Address [address] [place] [address] Care Team Providers Care Geological Science Teacher Name Role Phone Joseph Manzanares MD Unavailable Yaya Villatoro MD Primary Care Provider [phone] Encounter Details Date Type Department Care Team (Late st Contact Info) Description 12/10/2023 Orders Only [facility] - Hematology/Oncology [address] [place] [address] Remi Beckett MD [address] [place] [address] Papillary carcinoma of thyroid (HCC) [...] Date Recorded PHQ2 TOTAL SCORE 1 11/25/2022 [facility] [...] st Contact Info) Description 08/02/2024 2:20 PM [facility] Appointment [facility] [address] [place] [phone] 08/02/2024 3:00 PM [facility] GROWER Office Visit [facility] - Hematology/Oncology [address] [place] [phone] Remi Beckett MD [address] [place] [phone] 08/18/2024 1:45 PM [facility] Office Visit [facility] - ENT [address] [place] [phone] Neri Delgado MD [address] [place] [phone] 08/30/2024 2:20 PM [facility]OWER Appointment [facility] [address] [place] [phone] Scheduled Orders Name Type Priority Associated Diagnoses [...] (ABNORMAL) COMPREHENSIVE METABOLIC PANEL (06/15/2024 2:41 PM [facility] GROWER) BUN 28(H) 7 - 26 mg/dL 06/15/2024 3:20 PM [facility] Creatinine 0.86 0.56 - 0.96 mg/dL 06/15/2024 3:20 PM [facility] Sodium 138 136 - 145 mmol/L 06/15/2024 3:20 PM [facility] Potassium 4.1 3.5 - 4.5 mmol/L 06/15/2024 3:20 PM [facility] Chloride 103 98 - 107 mmol/L 06/15/2024 3:20 PM [facility] CO2 22 22 - 29 mmol/L 06/15/2024 3:20 PM [facility] Glucose 104(H) 70 - 99 mg/dL 06/15/2024 3:20 PM [facility] Calcium 10.2 8.4 - 10.2 mg/dL 06/15/2024 3:20 PM [facility] Protein Total 8.1 6.0 - 8.3 g/dL 06/15/2024 3:20 PM [facility] Albumin 4.0 3.4 - 5.0 g/dL 06/15/2024 3:20 PM [facility] Bilirubin Total 0.3 0.2 - 1.2 mg/dL 06/15/2024 3:20 PM [facility] Alkaline Phosphatase 78 40 - 150 U/L 06/15/2024 3:20 PM [facility] ALT 13 5 - 55 U/L 06/15/2024 3:20 PM [facility] AST 16 5 - 34 U/L 06/15/2024 3:20 PM [facility] Anion Gap 13 6 - 16 06/15/2024 3:20 PM [facility] BUN/Creatinine Ratio 33(H) 7 - 23 06/15/2024 3:20 PM [facility] Osmolality Calculated 292 275 - 295 mOsm/kg 06/15/2024 3:20 PM [facility] Albumin/Globulin Ratio 1.0(L) 1.1 - 2.3 06/15/2024 3:20 PM [facility] eGFR by CKD-EPI 75(L) >=90 mL/min/1.7 3 m2 06/15/2024 3:20 PM [facility] Blood BLOOD SPECIMEN / Unknown Lab Venipuncture / Unknown 06/15/2024 2:41 PM [facility] 06/15/2024 2:47 PM [facility] Remi Beckett MD LAB - CHEMISTRY ORDERABLES [facility] [address] [place] [address], [facility] [phone] * (ABNORMAL) CBC WITH DIFFERENTIAL (06/15/2024 2:41 PM [facility]) WBC 9.8 4.0 - 10.7 x10E9/L 06/15/2024 2:55 PM [facility] RBC Count 5.23(H) 3.90 - 5.20 x10E12/L 06/15/2024 2:55 PM [facility] Hemoglobin 16.0(H) 11.9 - 15.8 g/dL 06/15/2024 2:55 PM [facility] Hematocrit 45.9 34.8 - 46.1 % 06/15/2024 2:55 PM [facility] MCV 87.8 80.0 - 98.0 fL 06/15/2024 2:55 PM [facility] MCH 30.6 26.7 - 33.6 pg 06/15/2024 2:55 PM [facility] MCHC 34.9 31.7 - 36.3 g/dL 06/15/2024 2:55 PM [facility] RDW-CV 13.5 11.3 - 14.8 % 06/15/2024 2:55 PM [facility] Platelet Count 285 150 - 420 x10E9/L 06/15/2024 2:55 PM [facility] MPV 9.5 7.8 - 11.4 fL 06/15/2024 2:55 PM [facility] Neutrophil % 68.5 41.0 - 74.0 % 06/15/2024 2:55 PM [facility] Lymphocyte % 20.6 17.0 - 47.0 % 06/15/2024 2:55 PM [facility] Monocyte % 9.0 3.0 - 11.0 % 06/15/2024 2:55 PM [facility] Eosinophil % 1.2 0.0 - 7.0 % 06/15/2024 2:55 PM [facility] Basophil % 0.5 0.0 - 1.6 % 06/15/2024 2:55 PM [facility] Immature Granulocytes % 0.2 0.0 - 1.0 % 06/15/2024 2:55 PM [facility] Neutrophil Absolute 6.69 1.60 - 7.50 x10E9/L 06/15/2024 2:55 PM [facility] Lymphocyte Absolute 2.01 1.00 - 4.40 x10E9/L 06/15/2024 2:55 PM [facility] Monocyte Absolute 0.88 0.15 - 1.00 x10E9/L 06/15/2024 2:55 PM [facility] Eosinophil Absolute 0.12 0.00 - 0.60 x10E9/L 06/15/2024 2:55 PM [facility] Basophil Absolute 0.05 0.00 - 0.13 x10E9/L 06/15/2024 2:55 PM [facility] Blood BLOOD SPECIMEN / Unknown Lab Venipuncture / Unknown 06/15/2024 2:41 PM [facility] 06/15/2024 2:47 PM [facility] Remi Beckett MD LAB - HEMATOLOGY ORDERABLES Performing Organization Address [facility] Co de Phone Number [address] [address], [facility] [phone] * (ABNORMAL) COMPREHENSIVE METABOLIC PANEL (03/20/2024 2:41 PM CDT) BUN 19 7 - 26 mg/dL 03/20/2024 3:19 PM [facility] Creatinine 0.69 0.56 - 0.96 mg/dL 03/20/2024 3:19 PM [facility] Sodium 139 136 - 145 mmol/L 03/20/2024 3:19 PM [facility] Potassium 4.1 3.5 - 4.5 mmol/L 03/20/2024 3:19 PM [facility] Chloride 108(H) 98 - 107 mmol/L 03/20/2024 3:19 PM [facility] CO2 24 22 - 29 mmol/L 03/20/2024 3:19 PM [facility] Glucose 104 70 - 115 mg/dL 03/20/2024 3:19 PM [facility] Calcium 9.5 8.4 - 10.2 mg/dL 03/20/2024 3:19 PM [facility] Protein Total 7.7 6.0 - 8.3 g/dL 03/20/2024 3:19 PM [facility] Albumin 4.0 3.4 - 5.0 g/dL 03/20/2024 3:19 PM [facility] Bilirubin Total 0.2 0.2 - 1.2 mg/dL 03/20/2024 3:19 PM [facility] Alkaline Phosphatase 83 40 - 150 U/L 03/20/2024 3:19 PM [facility] ALT 11 5 - 55 U/L 03/20/2024 3:19 PM [facility] AST 17 5 - 34 U/L 03/20/2024 3:19 PM [facility] Anion Gap 7 6 - 16 03/20/2024 3:19 PM [facility] BUN/Creatinine Ratio 28(H) 7 - 23 03/20/2024 3:19 PM [facility] Osmolality Calculated 291 275 - 295 mOsm/kg 03/20/2024 3:19 PM [facility] Albumin/Globulin Ratio 1.1 1.1 - 2.3 03/20/2024 3:19 PM [facility] eGFR by CKD-EPI >90 >=90 mL/min/1.7 3 m2 03/20/2024 3:19 PM [facility] Blood BLOOD SPECIMEN / Unknown Lab Venipuncture / Unknown 03/20/2024 2:41 PM CDT 03/20/2024 2:50 PM T Remi Beckett MD LAB - CHEMISTRY ORDERABLES Performing Organization Address City/State/[facility] Co de Phone Number [facility] [address] [phone] [phone] * CBC WITH DIFFERENTIAL (03/20/2024 2:41 PM CDT) [facility] WBC 7.8 4.0 - 10.7 x10E9/L 03/20/2024 2:59 PM [facility] RBC Count 4.93 3.90 - 5.20 x10E12/L 03/20/2024 2:59 PM [facility] Hemoglobin 14.6 11.9 - 15.8 g/dL 03/20/2024 2:59 PM [facility] Hematocrit 41.8 34.8 - 46.1 % 03/20/2024 2:59 PM [facility] MCV 84.8 80.0 - 98.0 fL 03/20/2024 2:59 PM [facility] MCH 29.6 26.7 - 33.6 pg 03/20/2024 2:59 PM [facility] MCHC 34.9 31.7 - 36.3 g/dL 03/20/2024 2:59 PM [facility] RDW-CV 13.9 11.3 - 14.8 % 03/20/2024 2:59 PM [facility] Platelet Count 297 150 - 420 x10E9/L 03/20/2024 2:59 PM [facility] MPV 9.3 7.8 - 11.4 fL 03/20/2024 2:59 PM [facility] Neutrophil % 67.8 41.0 - 74.0 % 03/20/2024 2:59 PM [facility] Lymphocyte % 20.7 17.0 - 47.0 % 03/20/2024 2:59 PM [facility] Monocyte % 9.1 3.0 - 11.0 % 03/20/2024 2:59 PM [facility] Eosinophil % 1.5 0.0 - 7.0 % 03/20/2024 2:59 PM [facility] Basophil % 0.6 0.0 - 1.6 % 03/20/2024 2:59 PM [facility] Immature Granulocytes % 0.3 0.0 - 1.0 % 03/20/2024 2:59 PM [facility] Neutrophil Absolute 5.31 1.60 - 7.50 x10E9/L 03/20/2024 2:59 PM [facility] Lymphocyte Absolute 1.62 1.00 - 4.40 x10E9/L 03/20/2024 2:59 PM [facility] Monocyte Absolute 0.71 0.15 - 1.00 x10E9/L 03/20/2024 2:59 PM [facility] Eosinophil Absolute 0.12 0.00 - 0.60 x10E9/L 03/20/2024 2:59 PM [facility] Basophil Absolute 0.05 0.00 - 0.13 x10E9/L 03/20/2024 2:59 PM [facility] Blood BLOOD SPECIMEN / Unknown Lab Venipuncture / Unknown 03/20/2024 2:41 PM CDT 03/20/2024 2:50 PM CDT Remi Beckett MD LAB - HEMATOLOGY ORDERABLES [facility] [address] [place] [phone] [phone] * (ABNORMAL) COMPREHENSIVE METABOLIC PANEL (03/07/2024 12:53 PM CDT) BUN 28(H) 7 - 26 mg/dL 03/07/2024 1:32 PM [facility] Creatinine 0.78 0.56 - 0.96 mg/dL 03/07/2024 1:32 PM [facility] Sodium 134(L) 136 - 145 mmol/L 03/07/2024 1:32 PM [facility] Potassium 4.0 3.5 - 4.5 mmol/L 03/07/2024 1:32 PM [facility] Chloride 99 98 - 107 mmol/L 03/07/2024 1:32 PM [facility] CO2 24 22 - 29 mmol/L 03/07/2024 1:32 PM [facility] Glucose 91 70 - 115 mg/dL 03/07/2024 1:32 PM [facility] Calcium 9.4 8.4 - 10.2 mg/dL 03/07/2024 1:32 PM [facility] Protein Total 7.6 6.0 - 8.3 g/dL 03/07/2024 1:32 PM [facility] Albumin 3.8 3.4 - 5.0 g/dL 03/07/2024 1:32 PM [facility] Bilirubin Total 0.3 0.2 - 1.2 mg/dL 03/07/2024 1:32 PM [facility] Alkaline Phosphatase 85 40 - 150 U/L 03/07/2024 1:32 PM [facility] ALT 12 5 - 55 U/L 03/07/2024 1:32 PM [facility] AST 14 5 - 34 U/L 03/07/2024 1:32 PM [facility] Anion Gap 11 6 - 16 03/07/2024 1:32 PM [facility] BUN/Creatinine Ratio 36(H) 7 - 23 03/07/2024 1:32 PM [facility] Osmolality Calculated 283 275 - 295 mOsm/kg 03/07/2024 1:32 PM [facility] Albumin/Globulin Ratio 1.0(L) 1.1 - 2.3 03/07/2024 1:32 PM [facility] eGFR by CKD-EPI 84(L) >=90 mL/min/1.7 3 m2 03/07/2024 1:32 PM [facility] Blood BLOOD SPECIMEN / Unknown Lab Venipuncture / Unknown 03/07/2024 12:53 PM CDT 03/07/2024 1:04 PM T Remi Beckett MD LAB - CHEMISTRY ORDERABLES [facility] [address] [place] [address], [facility] [phone] * (ABNORMAL) CBC WITH DIFFERENTIAL (03/07/2024 12:53 PM CDT) WBC 8.9 4.0 - 10.7 x10E9/L 03/07/2024 1:07 PM [facility] RBC Count 5.21(H) 3.90 - 5.20 x10E12/L 03/07/2024 1:07 PM [facility] Hemoglobin 15.0 11.9 - 15.8 g/dL 03/07/2024 1:07 PM [facility] Hematocrit 44.5 34.8 - 46.1 % 03/07/2024 1:07 PM [facility] MCV 85.4 80.0 - 98.0 fL 03/07/2024 1:07 PM [facility] MCH 28.8 26.7 - 33.6 pg 03/07/2024 1:07 PM [facility] MCHC 33.7 31.7 - 36.3 g/dL 03/07/2024 1:07 PM [facility] RDW-CV 13.8 11.3 - 14.8 % 03/07/2024 1:07 PM [facility] Platelet Count 265 150 - 420 x10E9/L 03/07/2024 1:07 PM [facility] MPV 9.6 7.8 - 11.4 fL 03/07/2024 1:07 PM [facility] Neutrophil % 74.6(H) 41.0 - 74.0 % 03/07/2024 1:07 PM [facility] Lymphocyte % 16.8(L) 17.0 - 47.0 % 03/07/2024 1:07 PM [facility] Monocyte % 7.1 3.0 - 11.0 % 03/07/2024 1:07 PM [facility] Eosinophil % 1.0 0.0 - 7.0 % 03/07/2024 1:07 PM [facility] Basophil % 0.3 0.0 - 1.6 % 03/07/2024 1:07 PM [facility] Immature Granulocytes % 0.2 0.0 - 1.0 % 03/07/2024 1:07 PM [facility] Neutrophil Absolute 6.59 1.60 - 7.50 x10E9/L 03/07/2024 1:07 PM [facility] Lymphocyte Absolute 1.49 1.00 - 4.40 x10E9/L 03/07/2024 1:07 PM [facility] Monocyte Absolute 0.63 0.15 - 1.00 x10E9/L 03/07/2024 1:07 PM [facility] Eosinophil Absolute 0.09 0.00 - 0.60 x10E9/L 03/07/2024 1:07 PM [facility] Basophil Absolute 0.03 0.00 - 0.13 x10E9/L 03/07/2024 1:07 PM [facility] Blood BLOOD SPECIMEN / Unknown Lab Venipuncture / Unknown 03/07/2024 12:53 PM CDT 03/07/2024 1:03 PM CDT Remi Beckett MD LAB - HEMATOLOGY ORDERABLES Performing Organization Address [facility] Co de Phone Number [facility] [address] [place] [phone] [phone] * (ABNORMAL) COMPREHENSIVE METABOLIC PANEL (02/07/2024 3:06 PM CDT) BUN 27(H) 7 - 26 mg/dL 02/07/2024 3:59 PM [facility] Creatinine 0.68 0.56 - 0.96 mg/dL 02/07/2024 3:59 PM [facility] Sodium 134(L) 136 - 145 mmol/L 02/07/2024 3:59 PM [facility] Potassium 4.2 3.5 - 4.5 mmol/L 02/07/2024 3:59 PM [facility] Chloride 102 98 - 107 mmol/L 02/07/2024 3:59 PM [facility] CO2 23 22 - 29 mmol/L 02/07/2024 3:59 PM [facility] Glucose 93 70 - 115 mg/dL 02/07/2024 3:59 PM [facility] Calcium 8.5 8.4 - 10.2 mg/dL 02/07/2024 3:59 PM [facility] Protein Total 7.2 6.0 - 8.3 g/dL 02/07/2024 3:59 PM [facility] Albumin 3.6 3.4 - 5.0 g/dL 02/07/2024 3:59 PM [facility] Bilirubin Total 0.3 0.2 - 1.2 mg/dL 02/07/2024 3:59 PM [facility] Alkaline Phosphatase 94 40 - 150 U/L 02/07/2024 3:59 PM [facility] ALT 17 5 - 55 U/L 02/07/2024 3:59 PM [facility] AST 18 5 - 34 U/L 02/07/2024 3:59 PM [facility] Anion Gap 9 6 - 16 02/07/2024 3:59 PM [facility] BUN/Creatinine Ratio 40(H) 7 - 23 02/07/2024 3:59 PM [facility] Osmolality Calculated 283 275 - 295 mOsm/kg 02/07/2024 3:59 PM [facility] Albumin/Globulin Ratio 1.0(L) 1.1 - 2.3 02/07/2024 3:59 PM [facility] eGFR by CKD-EPI >90 >=90 mL/min/1.7 3 m2 02/07/2024 3:59 PM [facility] Blood BLOOD SPECIMEN / Unknown Lab Venipuncture / Unknown 02/07/2024 3:06 PM CDT 02/07/2024 3:[address] [facility] Remi Beckett MD LAB - CHEMISTRY ORDERABLES [facility] [address] [place] [address], [facility] [phone] * CBC WITH DIFFERENTIAL (02/07/2024 3:[address] [facility]) WBC 8.7 4.0 - 10.7 x10E9/L 02/07/2024 3:33 PM [facility] RBC Count 5.00 3.90 - 5.20 x10E12/L 02/07/2024 3:33 PM [facility] Hemoglobin 14.3 11.9 - 15.8 g/dL 02/07/2024 3:33 PM [facility] Hematocrit 42.5 34.8 - 46.1 % 02/07/2024 3:33 PM [facility] MCV 85.0 80.0 - 98.0 fL 02/07/2024 3:33 PM [facility] MCH 28.6 26.7 - 33.6 pg 02/07/2024 3:33 PM [facility] MCHC 33.6 31.7 - 36.3 g/dL 02/07/2024 3:33 PM [facility] RDW-CV 13.8 11.3 - 14.8 % 02/07/2024 3:33 PM [facility] Platelet Count 313 150 - 420 x10E9/L 02/07/2024 3:33 PM [facility] MPV 9.4 7.8 - 11.4 fL 02/07/2024 3:33 PM [facility] Neutrophil % 69.0 41.0 - 74.0 % 02/07/2024 3:33 PM [facility] Lymphocyte % 20.4 17.0 - 47.0 % 02/07/2024 3:33 PM [facility] Monocyte % 7.7 3.0 - 11.0 % 02/07/2024 3:33 PM [facility] Eosinophil % 2.0 0.0 - 7.0 % 02/07/2024 3:33 PM [facility] Basophil % 0.7 0.0 - 1.6 % 02/07/2024 3:33 PM [facility] Immature Granulocytes % 0.2 0.0 - 1.0 % 02/07/2024 3:33 PM [facility] Neutrophil Absolute 5.98 1.60 - 7.50 x10E9/L 02/07/2024 3:33 PM [facility] Lymphocyte Absolute 1.77 1.00 - 4.40 x10E9/L 02/07/2024 3:33 PM [facility] Monocyte Absolute 0.67 0.15 - 1.00 x10E9/L 02/07/2024 3:33 PM [facility] Eosinophil Absolute 0.17 0.00 - 0.60 x10E9/L 02/07/2024 3:33 PM [facility] Basophil Absolute 0.06 0.00 - 0.13 x10E9/L 02/07/2024 3:33 PM [facility] Blood BLOOD SPECIMEN / Unknown Lab Venipuncture / Unknown 02/07/2024 3:06 PM CDT 02/07/2024 3:28 PM CDT Remi Beckett MD LAB - HEMATOLOGY ORDERABLES [facility] [address] [place] [address], [facility] [phone] * (ABNORMAL) COMPREHENSIVE METABOLIC PANEL (01/14/2024 11:13 AM CDT) BUN 38(H) 7 - 26 mg/dL 01/14/2024 11:44 AM [facility] Creatinine 0.94 0.56 - 0.96 mg/dL 01/14/2024 11:44 AM [facility] Sodium 137 136 - 145 mmol/L 01/14/2024 11:44 AM [facility] Potassium 4.0 3.5 - 4.5 mmol/L 01/14/2024 11:44 AM [facility] Chloride 105 98 - 107 mmol/L 01/14/2024 11:44 AM [facility] CO2 21(L) 22 - 29 mmol/L 01/14/2024 11:44 AM [facility] Glucose 101 70 - 115 mg/dL 01/14/2024 11:44 AM [facility] Calcium 9.0 8.4 - 10.2 mg/dL 01/14/2024 11:44 AM [facility] Protein Total 7.6 6.0 - 8.3 g/dL 01/14/2024 11:44 AM [facility] Albumin 3.6 3.4 - 5.0 g/dL 01/14/2024 11:44 AM [facility] Bilirubin Total 0.3 0.2 - 1.2 mg/dL 01/14/2024 11:44 AM [facility] Alkaline Phosphatase 97 40 - 150 U/L 01/14/2024 11:44 AM [facility] ALT 20 5 - 55 U/L 01/14/2024 11:44 AM [facility] AST 20 5 - 34 U/L 01/14/2024 11:44 AM [facility] Anion Gap 11 6 - 16 01/14/2024 11:44 AM [facility] BUN/Creatinine Ratio 40(H) 7 - 23 01/14/2024 11:44 AM [facility] Osmolality Calculated 293 275 - 295 mOsm/kg 01/14/2024 11:44 AM [facility] Albumin/Globulin Ratio 0.9(L) 1.1 - 2.3 01/14/2024 11:44 AM [facility] eGFR by CKD-EPI 67(L) >=90 mL/min/1.7 3 m2 01/14/2024 11:44 AM [facility] Blood BLOOD SPECIMEN / Unknown Lab Venipuncture / Unknown 01/14/2024 11:13 AM CDT 01/14/2024 11:[address] [facility] Remi Beckett MD LAB - CHEMISTRY ORDERABLES Performing Organization Address City/[facility] de Phone Number [facility] [address] [place] [phone], [facility] [phone] * (ABNORMAL) CBC WITH DIFFERENTIAL (01/14/2024 11:13 AM T) WBC 8.6 4.0 - 10.7 x10E9/L 01/14/2024 11:30 AM [facility] RBC Count 5.49(H) 3.90 - 5.20 x10E12/L 01/14/2024 11:30 AM [facility] Hemoglobin 15.3 11.9 - 15.8 g/dL 01/14/2024 11:30 AM [facility] Hematocrit 44.4 34.8 - 46.1 % 01/14/2024 11:30 AM [facility] MCV 80.9 80.0 - 98.0 fL 01/14/2024 11:30 AM [facility] MCH 27.9 26.7 - 33.6 pg 01/14/2024 11:30 AM [facility] MCHC 34.5 31.7 - 36.3 g/dL 01/14/2024 11:30 AM [facility] RDW-CV 13.3 11.3 - 14.8 % 01/14/2024 11:30 AM [facility] Platelet Count 275 150 - 420 x10E9/L 01/14/2024 11:30 AM [facility] MPV 10.0 7.8 - 11.4 fL 01/14/2024 11:30 AM [facility] Neutrophil % 65.6 41.0 - 74.0 % 01/14/2024 11:30 AM [facility] Lymphocyte % 19.0 17.0 - 47.0 % 01/14/2024 11:30 AM [facility] Monocyte % 8.8 3.0 - 11.0 % 01/14/2024 11:30 AM [facility] Eosinophil % 5.8 0.0 - 7.0 % 01/14/2024 11:30 AM [facility] Basophil % 0.6 0.0 - 1.6 % 01/14/2024 11:30 AM [facility] Immature Granulocytes % 0.2 0.0 - 1.0 % 01/14/2024 11:30 AM [facility] Neutrophil Absolute 5.67 1.60 - 7.50 x10E9/L 01/14/2024 11:30 AM [facility] Lymphocyte Absolute 1.64 1.00 - 4.40 x10E9/L 01/14/2024 11:30 AM [facility] Monocyte Absolute 0.76 0.15 - 1.00 x10E9/L 01/14/2024 11:30 AM [facility] Eosinophil Absolute 0.50 0.00 - 0.60 x10E9/L 01/14/2024 11:30 AM CDT [facility] Basophil Absolute 0.05 0.00 - 0.13 x10E9/L 01/14/2024 11:30 AM CDT [facility] Blood BLOOD SPECIMEN / Unknown Lab Venipuncture / Unknown 01/14/2024 11:13 AM CDT 01/14/2024 11:18 AM CDT Remi Beckett MD LAB - HEMATOLOGY ORDERABLES [facility] [address] [place] [address], [facility] [phone] documented in this encounter Visit Diagnoses Diagnosis Papillary carcinoma of thyroid (HCC)- Primary Malignant neoplasm of thyroid gland documented in this encounter Care Teams [employer] Teacher Relationship Specialty Start Date End Date Yaya Villatoro MD [address] [facility] [address] [place] [id number] PCP - General Internal Medicine 05/04/23 Joseph Manzanares MD [address] [place] [id number] Internal Medicine 04/21/23 documented as of this encounter
--- OUTSIDE RECORDS SUMMARY | 2024-07-26 08:26 | XMS_ITS | Encounter Summary ---
Author Organization [facility] Health Address [address] [place] [address] Care Team Providers Care Dermatological Surgeon Name Role Phone Joseph Manzanares MD Unavailable Yaya Villatoro MD Primary Care Provider +1- [phone] Encounter Details Date Type Department Care Team [...] st Contact Info) Description 08/02/2024 2:20 PM GREEN CHAIN OFFBEARER Appointment [facility] [address] [place] [address] 08/02/2024 3:00 PM GREEN CHAIN OFFBEARER Office Visit [facility] - Hematology/Oncology [address] [place] [phone] Remi Beckett MD [address] [place] [phone] 08/18/2024 1:45 PM GREEN CHAIN OFFBEARER Office Visit [facility] - ENT [address] [place] [phone] Neri Delgado MD [address] [place] [address] 08/30/2024 2:20 PM GREEN CHAIN OFFBEARER Appointment [facility] [address] [place] [address] documented as of this encounter Visit Diagnoses Not on filedocumented in this encounter Care Teams Dermatological Surgeon Relationship Specialty Start Date End Date Yaya Villatoro MD [address] [place] [phone] PCP - General Internal Medicine 05/04/23 Joseph Manzanares MD [address] [place] [phone] Internal Medicine 04/21/23 documented as of this encounter
--- OUTSIDE RECORDS SUMMARY | 2024-07-26 08:26 | XMS_ITS | Encounter Summary ---
Author Organization [facility] Health Address [address] [place] [address] Care Team Providers Care Conference Assistant Name Role Phone Joseph Manzanares MD Unavailable Yaya Villatoro MD Primary Care Provider +1- [phone] Encounter Details Date Type Department Care Team [...] st Contact Info) Description 08/02/2024 2:20 PM PROCESS COORDINATOR Appointment [facility] [address] [place] [address] 08/02/2024 3:00 PM PROCESS COORDINATOR Office Visit [facility] - Hematology/Oncology [address] [place] [phone] Remi Beckett MD [address] [place] [phone] 08/18/2024 1:45 PM PROCESS COORDINATOR Office Visit [facility] - ENT [address] [place] [phone] Neri Delgado MD [address] [place] [address] 08/30/2024 2:20 PM PROCESS COORDINATOR Appointment [facility] [address] [place] [phone] documented as of this encounter Visit Diagnoses Not on filedocumented in this encounter Care Teams Conference Assistant Relationship Specialty Start Date End Date Yaya Villatoro MD [address] [place] [phone] PCP - General Internal Medicine 05/04/23 Joseph Manzanares MD [address] [place] [phone] Internal Medicine 04/21/23 documented as of this encounter
--- OUTSIDE RECORDS SUMMARY | 2024-07-26 08:26 | XMS_ITS | Encounter Summary ---
Author Organization [facility] Address [address] [place] [address] Care Team Providers Care Industrial Gas Servicer Name Role Phone Joseph Manzanares MD Unavailable Yaya Villatoro MD Primary Care Provider +1- [phone] Reason for Referral * Evaluate & Treat (Routine) - Closed Specialty Diagnoses / Procedures Referred By Yuan t Referred To Contact Neurology Diagnoses Motor skills disorder Remi Beckett MD [address] [place] [address] Sandra Mckeon MD [address] [address] Referral ID Status Reason Start Date Expiration Date V isits Requested Visits Authorized [id number] Closed Specialty Services Required 11/04/2023 11/03/2024 1 1 Reason for Visit * Reason Comments Follow-up Encounter Details Date Type Department Care Team (Latest Contact Info) Description 11/04/2023 11:00 AM CDT Office Visit [facility] - Hematology/Oncology [address] [place] [address] Remi Beckett MD [address] [place] [address] Malignant tumor of thyroid gland [...] Date Recorded PHQ2 TOTAL SCORE 1 11/25/2022 [facility] [place] of Occupat ional Health - Occupational Stress [...] the physicians and other specialists at the [facility]. [facility]: For symptom management or prescription questions during business hours (Mon-Fri 8AM-4:30PM), pleasecall the triage nurse. Outside of business hours, please call the hematology/oncology doctor on-call. Hem/Onc Doctor On-Call (After hours, weekends, holidays): [phone], Dial 0 (Paper Box Cutter) and askfor the hematology/oncology fellow on-call and [...] free T4 1.4. --10/2023: Discussed with her surgical manager Dr. Bustamante. She is not a good candidate for repeatRAI, which also does not have good bone/PIPE FITTER AMMONIA penetration. Hence decided to initiate lenvatinib 24 [...] breath) 08/06 thyroid mass ??? Thyroid cancer (HCC) 10/14/2020 [...] naloxone HCl (Narcan) 4 MG/0.1ML nasal spray [place] 1 (one) spray into the nose as [...] questions/concerns in the meantime. 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 She is currently going to rehab to get stronger. She also experiences pain, the pain is in the neck and pain between her shoulders, intermittent, sharp, moderate to severe, causes her to wake up at night. She has started using Cameron which brings the pain down to 0/10, averages to 2 pills a day, uses celebrex and gabapentin as adjuncts. Since she can't close her right hand she needs help with ADLs. She denies any nausea or vomiting, hasbeen feeling quite tired after strating radiation. Her [...] Completed 2400 Gy to the cervical spine (Arnalod) 09/30/2023: MRI cervical spine: Redemonstration of postoperative [...] by mouth 3 times daily ??? HYDROcodone-acetaminophen (Cameron) 5-325 MG tablet Take 1 (one) tablet by mouth every 8 hours asneeded for Pain ??? hydrOXYzine HCl (Atarax) 25 MG tablet Take 1 (one) tablet to 2 (two) tablets by mouth as needed ??? levothyroxine (Synthroid) 112 MCG tablet Take 1 (one) tablet by mouth daily before breakfast Reasons: Cancer of Thyroid, Underactive Thyroid ??? naloxone HCl (Narcan) 4 MG/0.1ML nasal spray [place] 1 (one) spray into the nose as [...] DATE/TIME OF EXAM: 10/06/2023 3:39 PM, LOCATION [facility] INDICATION: E89.0: Postoperative hypothyroidism [...] inguinal nodes. Musculoskeletal: Postoperative changes of a [id number] instrumented spinal fusion. There are multifocal areas [...] receptionist). > Dictated by Froylan Ny DO (Facial Operator) 10/06/2023 3:25 PM ITiesha DO have personally reviewed and interpreted this examinati on/study. > Interpreting Provider: Tiesha Sy DO on 10/06/2023 5:11 PM MRI CERVICAL SPINE WWO CONT Result Date: 10/01/2023 PROCEDURE: MRI CERVICAL SPINE WWO CONT, DATE/TIME OF EXAM: 10/01/2023 10:44 AM, LOCATION [facility] INDICATION: C79.51: Cancer, metastatic [...] and the response rate among patients with [id number] thyroid cancer (SELECT trial). The median progression-free [...] directed treatments Will get in touch her surgical manager Blood pressure monitoring at home for the first two weeks RTC in two weeks Plan discussed with Dr. Beckett documented in this encounter Plan of Treatment Upcoming Encounters Date Type Department Care Team (Late st Contact Info) Description 08/02/2024 2:20 PM RADIOLOGY ORDERLY Appointment [facility] [address] [place] [address] 08/02/2024 3:00 PM RADIOLOGY ORDERLY Office Visit [facility] - Hematology/Oncology [address] [place] [address] Remi Beckett MD [address] [place] [address] 08/18/2024 1:45 PM RADIOLOGY ORDERLY Office Visit [facility] - ENT [address] [place] [address] [place] [address] [place] [address] 08/30/2024 2:20 PM RADIOLOGY ORDERLY Appointment [facility] [address] [place] [phone] Scheduled Referrals Name Type Priority Associated Diagnoses Order Schedule Ref to Neurology - [facility] Outpatient Referral Routine Motor skills disorder 1 Occurrences starting 11/04/2023 until 11/03/2024 documented as of this encounter Results * (ABNORMAL) COMPREHENSIVE METABOLIC PANEL (12/10/2023 10:54 AM CDT) BUN 30(H) 7 - 26 mg/dL 12/10/2023 11:26 AM [facility] Creatinine 0.77 0.56 - 0.96 mg/dL 12/10/2023 11:26 AM [facility] Sodium 139 136 - 145 mmol/L 12/10/2023 11:26 AM [facility] Potassium 4.3 3.5 - 4.5 mmol/L 12/10/2023 11:26 AM [facility] Chloride 108(H) 98 - 107 mmol/L 12/10/2023 11:26 AM [facility] CO2 21(L) 22 - 29 mmol/L 12/10/2023 11:26 AM [facility] Glucose 101 70 - 115 mg/dL 12/10/2023 11:26 AM [facility] Calcium 9.3 8.4 - 10.2 mg/dL 12/10/2023 11:26 AM [facility] Protein Total 7.8 6.0 - 8.3 g/dL 12/10/2023 11:26 AM [facility] Albumin 4.1 3.4 - 5.0 g/dL 12/10/2023 11:26 AM [facility] Bilirubin Total 0.3 0.2 - 1.2 mg/dL 12/10/2023 11:26 AM [facility] Alkaline Phosphatase 83 40 - 150 U/L 12/10/2023 11:26 AM [facility] ALT 17 5 - 55 U/L 12/10/2023 11:26 AM [facility] AST 17 5 - 34 U/L 12/10/2023 11:26 AM [facility] Anion Gap 10 6 - 16 12/10/2023 11:26 AM [facility] BUN/Creatinine Ratio 39(H) 7 - 23 12/10/2023 11:26 AM [facility] Osmolality Calculated 294 275 - 295 mOsm/kg 12/10/2023 11:26 AM [facility] Albumin/Globulin Ratio 1.1 1.1 - 2.3 12/10/2023 11:26 AM [facility] eGFR by CKD-EPI 86(L) >=90 mL/min/1.7 3 m2 12/10/2023 11:26 AM [facility] Blood BLOOD SPECIMEN / Unknown Lab Venipuncture / Unknown 12/10/2023 10:54 AM CDT 12/10/2023 10:56 AM T Remi Beckett MD LAB - CHEMISTRY ORDERABLES Performing Organization Address City/State/[facility] Co de Phone Number [address] [address], [facility] [phone] * (ABNORMAL) CBC WITH DIFFERENTIAL (12/10/2023 10:54 AM T) WBC 7.7 4.0 - 10.7 x10E9/L 12/10/2023 10:59 AM [facility] RBC Count 5.36(H) 3.90 - 5.20 x10E12/L 12/10/2023 10:59 AM [facility] Hemoglobin 14.9 11.9 - 15.8 g/dL 12/10/2023 10:59 AM [facility] Hematocrit 45.1 34.8 - 46.1 % 12/10/2023 10:59 AM [facility] MCV 84.1 80.0 - 98.0 fL 12/10/2023 10:59 AM [facility] MCH 27.8 26.7 - 33.6 pg 12/10/2023 10:59 AM [facility] MCHC 33.0 31.7 - 36.3 g/dL 12/10/2023 10:59 AM [facility] RDW-CV 13.1 11.3 - 14.8 % 12/10/2023 10:59 AM [facility] Platelet Count 285 150 - 420 x10E9/L 12/10/2023 10:59 AM [facility] MPV 9.6 7.8 - 11.4 fL 12/10/2023 10:59 AM [facility] Neutrophil % 70.4 41.0 - 74.0 % 12/10/2023 10:59 AM [facility] Lymphocyte % 17.0 17.0 - 47.0 % 12/10/2023 10:59 AM [facility] Monocyte % 9.4 3.0 - 11.0 % 12/10/2023 10:59 AM [facility] Eosinophil % 2.2 0.0 - 7.0 % 12/10/2023 10:59 AM [facility] Basophil % 0.6 0.0 - 1.6 % 12/10/2023 10:59 AM [facility] Immature Granulocytes % 0.4 0.0 - 1.0 % 12/10/2023 10:59 AM [facility] Neutrophil Absolute 5.42 1.60 - 7.50 x10E9/L 12/10/2023 10:59 AM [facility] Lymphocyte Absolute 1.31 1.00 - 4.40 x10E9/L 12/10/2023 10:59 AM [facility] Monocyte Absolute 0.72 0.15 - 1.00 x10E9/L 12/10/2023 10:59 AM [facility] Eosinophil Absolute 0.17 0.00 - 0.60 x10E9/L 12/10/2023 10:59 AM CDT [facility] Basophil Absolute 0.05 0.00 - 0.13 x10E9/L 12/10/2023 10:59 AM CDT [facility] Blood BLOOD SPECIMEN / Unknown Lab Venipuncture / Unknown 12/10/2023 10:54 AM CDT 12/10/2023 10:56 AM CDT Remi Beckett MD LAB - HEMATOLOGY ORDERABLES Performing Organization Address City/State/[facility] Co de Phone Number [facility] [address] [place] [address], [facility] [phone] documented in this encounter Visit Diagnoses Diagnosis Malignant tumor of thyroid gland (HCC)- Primary Malignant neoplasm of thyroid gland Motor skills disorder Developmental coordination disorder Encounter for antineoplastic chemotherapy Cancer, metastatic to bone (HCC) Secondary malignant neoplasm of bone and bone marrow documented in this encounter Care Teams Industrial Gas Servicer Relationship Specialty Start Date End Date Yaya Villatoro MD [address] [facility] [address] [place] [phone] PCP - General Internal Medicine 05/04/23 Joseph Manzanares MD [address] [place] [phone] Internal Medicine 04/21/23 documented as of this encounter
--- OUTSIDE RECORDS SUMMARY | 2024-07-26 08:26 | XMS_ITS | Encounter Summary ---
Author Organization [facility] Health Address [address] [place] [address] Care Team Providers Care Ct Scan Special Procedures Technologist Name Role Phone Joseph Manzanares MD Unavailable Yaya Villatoro MD Primary Care Provider +1- [phone] Encounter Details Date Type Department Care Team (Latest Contact Info) Description 12/10/2023 10:49 AM CDT - 12/10/2023 11:59 PM T Hospital Encounter [facility] [address] [place] [address] Yaya Villatoro MD [address] [facility] [address] [place] [address] Discharge Disposition: Home or Self [...] Date Recorded PHQ2 TOTAL SCORE 1 11/25/2022 [facility] [place] of Occupat ional Health - Occupational Stress [...] naloxone HCl (Narcan) 4 MG/0.1ML nasal spray [place] 1 (one) spray into the nose as [...] x 10 MG & 4 MG capsuleIndications:Cristiano rajinder carcinoma of thyroid (HCC) Take two 10 mg capsules and one 4 mg capsule (24 mg total) by mouth once a day. 90 Each 12/10/2023 documented as of this encounter Plan of Treatment Upcoming Encounters Date Type Department Care Team (Late st Contact Info) Description 08/02/2024 2:20 PM ANIMAL FEEDER Appointment [facility] [address] [place] [address] 08/02/2024 3:00 PM ANIMAL FEEDER Office Visit [facility] - Hematology/Oncology [address] [place] [phone] Remi Beckett MD [address] [place] [phone] 08/18/2024 1:45 PM ANIMAL FEEDER Office Visit [facility] - ENT [address] [place] [phone] Neri Delgado MD [address] [place] [address] 08/30/2024 2:20 PM ANIMAL FEEDER Appointment [facility] [address] [place] [address] documented as of this encounter Procedures Procedure [...] - 38.5 ng/mL 12/13/2023 6:08 PM CDT [facility] ([facility]) Comment: According to the National Academy of [...] AM CDT 12/10/2023 10:56 AM CDT Narrative [facility] ([facility]) - 12/13/2023 6:08 PM CDT Performed at: ??01 - [facility] [address] [place], [place] ??[id number] Supervisor [employer]: Oral Melendez PhD, Phone: ??[phone] Yosi Bustamante MD LAB - CHEMISTRY ORD ERABLES [facility] ([facility]) [address] [place] [address] * PHOSPHORUS BLOOD (12/10/2023 10:54 AM CDT) Phosphorus 4.8 2.9 - 5.1 mg/dL 12/10/2023 11:26 AM [facility] Blood BLOOD SPECIMEN / Unknown Lab Venipuncture / Unknown 12/10/2023 10:54 AM CDT 12/10/2023 10:56 AM CDT Yosi Bustamante MD LAB - CHEMISTRY ORD ERABLES [facility] [address] [place] [address], [facility] [phone] * (ABNORMAL) COMPREHENSIVE METABOLIC PANEL (12/10/2023 10:54 AM CDT) BUN 30(H) 7 - 26 mg/dL 12/10/2023 11:26 AM [facility] Creatinine 0.77 0.56 - 0.96 mg/dL 12/10/2023 11:26 AM [facility] Sodium 139 136 - 145 mmol/L 12/10/2023 11:26 AM [facility] Potassium 4.3 3.5 - 4.5 mmol/L 12/10/2023 11:26 AM [facility] Chloride 108(H) 98 - 107 mmol/L 12/10/2023 11:26 AM [facility] CO2 21(L) 22 - 29 mmol/L 12/10/2023 11:26 AM [facility] Glucose 101 70 - 115 mg/dL 12/10/2023 11:26 AM [facility] Calcium 9.3 8.4 - 10.2 mg/dL 12/10/2023 11:26 AM [facility] Protein Total 7.8 6.0 - 8.3 g/dL 12/10/2023 11:26 AM [facility] Albumin 4.1 3.4 - 5.0 g/dL 12/10/2023 11:26 AM [facility] Bilirubin Total 0.3 0.2 - 1.2 mg/dL 12/10/2023 11:26 AM [facility] Alkaline Phosphatase 83 40 - 150 U/L 12/10/2023 11:26 AM [facility] ALT 17 5 - 55 U/L 12/10/2023 11:26 AM [facility] AST 17 5 - 34 U/L 12/10/2023 11:26 AM [facility] Anion Gap 10 6 - 16 12/10/2023 11:26 AM [facility] BUN/Creatinine Ratio 39(H) 7 - 23 12/10/2023 11:26 AM [facility] Osmolality Calculated 294 275 - 295 mOsm/kg 12/10/2023 11:26 AM [facility] Albumin/Globulin Ratio 1.1 1.1 - 2.3 12/10/2023 11:26 AM [facility] eGFR by CKD-EPI 86(L) >=90 mL/min/1.7 3 m2 12/10/2023 11:26 AM [facility] Blood BLOOD SPECIMEN / Unknown Lab Venipuncture / Unknown 12/10/2023 10:54 AM CDT 12/10/2023 10:56 AM T Remi Beckett MD LAB - CHEMISTRY ORDERABLES Performing Organization Address City/State/[facility] Co de Phone Number [facility] [address] [place] [address], [facility] [phone] * (ABNORMAL) CBC WITH DIFFERENTIAL (12/10/2023 10:54 AM CDT) WBC 7.7 4.0 - 10.7 x10E9/L 12/10/2023 10:59 AM [facility] RBC Count 5.36(H) 3.90 - 5.20 x10E12/L 12/10/2023 10:59 AM [facility] Hemoglobin 14.9 11.9 - 15.8 g/dL 12/10/2023 10:59 AM [facility] Hematocrit 45.1 34.8 - 46.1 % 12/10/2023 10:59 AM [facility] MCV 84.1 80.0 - 98.0 fL 12/10/2023 10:59 AM [facility] MCH 27.8 26.7 - 33.6 pg 12/10/2023 10:59 AM [facility] MCHC 33.0 31.7 - 36.3 g/dL 12/10/2023 10:59 AM [facility] RDW-CV 13.1 11.3 - 14.8 % 12/10/2023 10:59 AM [facility] Platelet Count 285 150 - 420 x10E9/L 12/10/2023 10:59 AM [facility] MPV 9.6 7.8 - 11.4 fL 12/10/2023 10:59 AM [facility] Neutrophil % 70.4 41.0 - 74.0 % 12/10/2023 10:59 AM [facility] Lymphocyte % 17.0 17.0 - 47.0 % 12/10/2023 10:59 AM [facility] Monocyte % 9.4 3.0 - 11.0 % 12/10/2023 10:59 AM [facility] Eosinophil % 2.2 0.0 - 7.0 % 12/10/2023 10:59 AM [facility] Basophil % 0.6 0.0 - 1.6 % 12/10/2023 10:59 AM [facility] Immature Granulocytes % 0.4 0.0 - 1.0 % 12/10/2023 10:59 AM [facility] Neutrophil Absolute 5.42 1.60 - 7.50 x10E9/L 12/10/2023 10:59 AM [facility] Lymphocyte Absolute 1.31 1.00 - 4.40 x10E9/L 12/10/2023 10:59 AM [facility] Monocyte Absolute 0.72 0.15 - 1.00 x10E9/L 12/10/2023 10:59 AM [facility] Eosinophil Absolute 0.17 0.00 - 0.60 x10E9/L 12/10/2023 10:59 AM [facility] Basophil Absolute 0.05 0.00 - 0.13 x10E9/L 12/10/2023 10:59 AM CDT [facility] Blood BLOOD SPECIMEN / Unknown Lab Venipuncture / Unknown 12/10/2023 10:54 AM CDT 12/10/2023 10:56 AM CDT Remi Beckett MD LAB - HEMATOLOGY ORDERABLES Performing Organization Address City/[facility]/ZIP Co de Phone Number [facility] [address] [place] [address], [facility] [phone] * THYROGLOBULIN REFLEX PROFILE (12/10/2023 10:54 AM CDT) Thyroglobulin Antibody <1.0 0.0 - 0.9 IU/mL 12/13/2023 6:08 PM CDT [facility] ([facility]) Comment: Thyroglobulin Antibody measured by Lisbet Corona Methodology It should be noted that the presence of thyroglobulin antibodies may not be pathogenic nor diagnostic, especially at very low levels. The assay frame changer has found that four percent of individuals without evidence of thyroid disease or autoimmunity will have positive TgAb levels up to 4 IU/mL. Blood BLOOD SPECIMEN / Unknown Lab Venipuncture / Unknown 12/10/2023 10:54 AM CDT 12/10/2023 10:56 AM CDT Narrative [facility] ([facility]) - 12/13/2023 6:08 PM CDT Performed at: ??01 - [facility] [address] [place], [place] ??[id number] Supervisor [employer]: Oral Melendez PhD, Phone: ??[phone] Yosi Bustamante MD LAB - CHEMISTRY ORD ERABLES [facility] [address] [place] [address] * (ABNORMAL) TSH (12/10/2023 10:54 AM CDT) TSH <0.010(L) 0.350 - 4.940 uIU/mL 12/10/2023 11:43 AM CDT [facility] Blood BLOOD SPECIMEN / Unknown Lab Venipuncture / Unknown 12/10/2023 10:54 AM CDT 12/10/2023 10:56 AM CDT Yosi Bustamante MD LAB - CHEMISTRY ORD ERABLES Performing Organization Address City/State/[facility] Co de Phone Number [facility] [address] [place] [address], [facility] [phone] documented in this encounter Visit Diagnoses Diagnosis Postoperative hypothyroidism Postsurgical hypothyroidism Thyroid cancer (HCC) Malignant neoplasm of thyroid gland Hypocalcemia Other hypoparathyroidism (HCC) Malignant tumor of thyroid gland (HCC) Malignant neoplasm of thyroid gland Cancer, metastatic to bone (HCC) Secondary malignant neoplasm of bone and bone marrow documented in this encounter Care Teams Ct Scan Special Procedures Technologist Relationship Specialty Start Date End Date Yaya Villatoro MD [address] [facility] [address] [place] [phone] PCP - General Internal Medicine 05/04/23 Joseph Manzanares MD [address] [place] [phone] Internal Medicine 04/21/23 documented as of this encounter
--- OUTSIDE RECORDS SUMMARY | 2024-07-26 08:26 | XMS_ITS | Encounter Summary ---
Author Organization [facility] Health Address [address] [facility] [place] [address] Care Team Providers Care Java Development Team Lead Name Role Phone Joseph Manzanares MD Unavailable Yaya Villatoro MD Primary Care Provider +1- [phone] Reason for Visit * Reason Onset Date Comments General 10/29/2023 Encounter Details Date Type Department Care Team ([facility] Contact Info) Description 10/29/2023 Telephone [facility] ONC [address] [place] [address] Alize French RN General Social History Tobacco Use Types [...] AM CDT The patient initially called r/t [facility] pharmacy not being able to process prescription. The patient was called back, informed [facility] could not process the prescription r/t the prescription was originally e-prescribed at [facility], they had process the prescription, and that the prescription is now available at [facility] pharmacy. The patient inquired if she could [...] st Contact Info) Description 08/02/2024 2:20 PM PARTNER MARKETING INTERN Appointment [facility] [address] [place] [address] 08/02/2024 3:00 PM PARTNER MARKETING INTERN Office Visit [facility] - Hematology/Oncology [address] [place] [address] [phone] Remi Beckett MD [address] [place] [phone] 08/18/2024 1:45 PM PARTNER MARKETING INTERN Office Visit [facility] - ENT [address] [place] [phone] Neri Delgado MD [address] [place] [address] 08/30/2024 2:20 PM PARTNER MARKETING INTERN Appointment [facility] [address] [place] [address] documented as of this encounter Visit Diagnoses Not on filedocumented in this encounter Care Teams Java Development Team Lead Relationship Specialty Start Date End Date Yaya Villatoro MD [address] [facility] [address] [place] [phone] PCP - General Internal Medicine 05/04/23 Joseph Manzanares MD [address] [place] [address] Internal Medicine 04/21/23 documented as of this encounter
--- OUTSIDE RECORDS SUMMARY | 2024-07-26 08:26 | XMS_ITS | Encounter Summary ---
Author Organization [facility] Address [address] [facility] [place] [address] Care Team Providers Care Tactical Debriefer Officer Name Role Phone Joseph Manzanares MD Unavailable Yaya Villatoro MD Primary Care Provider +1- [phone] Reason for Visit * Radiology Services (Routine) - Closed Specialty Diagnoses / Procedures Referred By Yuan robins Referred To Contact MRI Diagnoses Cervical spine tumor Cancer, metastatic to bone (HCC) Papillary carcinoma of thyroid (HCC) Procedures MRI CERVICAL SPINE WWO CONT Marcio Mcintosh MD [address] [place] [address] [facility] Mri [address] [place] [address] Referral ID Status Reason Start Date Expiration Date Visits Re quested Visits Authorized [id number] Closed 11/23/2023 02/21/2024 1 1 Encounter Details Date Type Department Care Team (Latest Contact Info) Description 11/23/2023 5:06 PM CDT - 11/23/2023 11:59 PM CDT Hospital Encounter [facility] MRI [address] [place] [address] Marcio Mcintosh MD [address] [place] [address] Discharge Disposition: Home or Self [...] PHQ2 TOTAL SCORE 1 11/25/2022 [facility] [place] of Occupat ional Health - Occupational Stress [...] naloxone HCl (Narcan) 4 MG/0.1ML nasal spray [place] 1 (one) spray into the nose as [...] st Contact Info) Description 08/02/2024 2:20 PM GREETING CARD EDITOR Appointment [facility] [address] [place] [address] 08/02/2024 3:00 PM GREETING CARD EDITOR Office Visit [facility] - Hematology/Oncology [address] [place] [address] [phone] Remi Beckett MD [address] [place] [phone] 08/18/2024 1:45 PM GREETING CARD EDITOR Office Visit [facility] - ENT [address] [place] [address] [phone] Neri Delgado MD [address] [place] [address] 08/30/2024 2:20 PM GREETING CARD EDITOR Appointment [facility] [address] [place] [address] documented as of this encounter Procedures Procedure [...] recommended. Report dictated by Kendall Quiroz MD (co founder and president). I, Toñito Lucia MD have personally reviewed [...] recommended. Report dictated by Kendall Quiroz MD (co founder and president). I, Toñito Lucia MD have personally reviewed [...] mL documented in this encounter Care Teams Tactical Debriefer Officer Relationship Specialty Start Date End Date Yaya Villatoro MD [address] [facility] [address] [place] [phone] PCP - General Internal Medicine 05/04/23 Joseph Manzanares MD [address] [place] [phone] Internal Medicine 04/21/23 documented as of this encounter
--- OUTSIDE RECORDS SUMMARY | 2024-07-26 08:26 | XMS_ITS | Encounter Summary ---
Author Organization [facility] Health Address [address] [place] [address] Care Team Providers Care Admin Assistant Name Role Phone Joseph Manzanares MD Unavailable Yaya Villatoro MD Primary Care Provider +1- [phone] Reason for Visit * Reason Onset Date Comments Fever 12/02/2023 cough Cough 12/02/2023 Sore Throat 12/02/2023 Encounter Details Date Type Department Care Team (Late st Contact Info) Description 12/02/2023 Telephone [facility] - Hematology/Oncology [address] [place] [address] Josefina Ribeiro RN Fever (cough); [...] st Contact Info) Description 08/02/2024 2:20 PM UROLOGY SURGEON Appointment [facility] [address] [place] [address] 08/02/2024 3:00 PM UROLOGY SURGEON Office Visit [facility] - Hematology/Oncology [address] [place] [address] [phone] Remi Beckett MD [address] [place] [phone] 08/18/2024 1:45 PM UROLOGY SURGEON Office Visit [facility]NT [address] [place] [address] [phone] Neri Delgado MD [address] [place] [address] 08/30/2024 2:20 PM UROLOGY SURGEON Appointment [facility] [address] [place] [address] documented as of this encounter Visit Diagnoses Not on filedocumented in this encounter Care Teams Admin Assistant Relationship Specialty Start Date End Date Yaya Villatoro MD [address] [facility] [address] [place] [phone] PCP - General Internal Medicine 05/04/23 Joseph Manzanares MD [address] [place] [phone] Internal Medicine 04/21/23 documented as of this encounter
--- OUTSIDE RECORDS SUMMARY | 2024-07-26 08:26 | XMS_ITS | Encounter Summary ---
Author Organization [facility] Address [address] [facility] [place] [address] Care Team Providers Care Claim Manager Name Role Phone Joseph Manzanares MD Unavailable Yaya Villatoro MD Primary Care Provider +1- [phone] Reason for Referral * Laboratory Services (Routine) - Pending Review Specialty Diagnoses / Procedures Referred By Yuan robins Referred To Contact Hematology and Oncology Diagnoses Papillary carcinoma of thyroid (HCC) Procedures TEMPUS XT Remi Daniels MD [address] [place] [address] Referral ID Status Reason Start Date Expiration Date V isits Requested Visits Authorized [id number] Pending Review 12/10/2023 12/09/2024 1 1 Reason for Visit * Reason Comments Follow-up Malignant tumor of t hyroid gland Encounter Details Date Type Department Care Team (Latest Contact Info) Description 12/10/2023 10:40 AM CDT Office Visit [facility] - Hematology/Oncology [address] [place] [address] Remi Daniels MD [address] [place] [address] Papillary carcinoma of thyroid (HCC) [...] 11/25/2022 [facility] of Occupat ional [facility] - Occupational Stress Questionnaire Answer Date [...] the physicians and other specialists at the [facility] On[facility]. [facility]: For symptom management or prescription questions during business hours (Mon-Fri 8AM-4:30PM), pleasecall the triage nurse. Outside of business hours, please call the hematology/oncology doctor on-call. Hem/Onc Doctor On-Call (After hours, weekends, holidays): [phone], Dial [phone] (Freight Team Associate) and askfor the hematology/oncology fellow on-call and [...] T4 1.4. --10/2023: Discussed with her director of hospitality Dr. Bustamante. She is not a good candidate for repeatRAI, which also does not have good bone/PARTS RUNNER penetration. Hence decided to initiate lenvatinib 24 [...] scheduled forrepeat radioactive iodine therapy with her director of hospitality in the near future. Appetite is good. [...] naloxone HCl (Narcan) 4 MG/0.1ML nasal spray [place] 1 (one) spray into the nose as [...] questions/concerns in the meantime. Remi Daniels MD Horticultural Farm Managerair brake rigger Department of Hematology & Medical Oncology [facility]: documented in this encounter Miscellaneous [...] radioiodine-refractory thyroid cancer. N. Engl. J. Med. 2015;372():621-630. URL: http://www.ncbi.nlm.nih.gov/pubmed/[email or web address] Patient Characteristics: Well Differentiated Thyroid Cancer Including [...] st Contact Info) Description 08/02/2024 2:20 PM COMMERCIAL SALES DIRECTOR Appointment [facility] [address] [place] [address] 08/02/2024 3:00 PM COMMERCIAL SALES DIRECTOR Office Visit [facility] - Hematology/Oncology [address] [place] [phone] Remi Daniels MD [address] [place] [phone] 08/18/2024 1:45 PM COMMERCIAL SALES DIRECTOR Office Visit [facility] ENT [address] [place] [address] [phone] Neri Delgado MD [address] [place] [address] 08/30/2024 2:20 PM COMMERCIAL SALES DIRECTOR Appointment [facility] [address] [place] [address] Pending Results Name Type Priority Associated Diagnoses [...] marrow documented in this encounter Care Teams Claim Manager Relationship Specialty Start Date End Date Yaya Villatoro MD [address] [phone] PCP - General Internal Medicine 05/04/23 Joseph Manzanares MD [address] [place] [phone] Internal Medicine 04/21/23 documented as of this encounter
--- OUTSIDE RECORDS SUMMARY | 2024-07-26 08:26 | XMS_ITS | Encounter Summary ---
Author Organization [facility] Health Address [address] [facility] [place] [address] Care Team Providers Care Chairman And Ceo Name Role Phone Joseph Manzanares MD Unavailable Yaya Villatoro MD Primary Care Provider +1- [phone] Reason for Visit * Reason Onset Date Comments Appointment 11/02/2023 Encounter Details Date Type Department Care Team ([facility] Contact Info) Description 11/02/2023 Telephone [facility] ONC [address] [place] [address] Aliez French RN Appointment Social History Tobacco Use [...] st Contact Info) Description 08/02/2024 2:20 PM PUMP ATTENDANT Appointment [facility] [address] [place] [address] 08/02/2024 3:00 PM PUMP ATTENDANT Office Visit [facility] - Hematology/Oncology [address] [place] [phone] Remi Beckett MD [address] [place] [phone] 08/18/2024 1:45 PM PUMP ATTENDANT Office Visit [facility] [address] [place] [phone] Neri Delgado MD [address] [place] [address] 08/30/2024 2:20 PM PUMP ATTENDANT Appointment [facility] [address] [place] [address] documented as of this encounter Visit Diagnoses Not on filedocumented in this encounter Care Teams Chairman And Ceo Relationship Specialty Start Date End Date Yaya Villatoro MD [address] [facility] [address] [place] [phone] PCP - General Internal Medicine 05/04/23 Joseph Manzanares MD [address] [place] [phone] Internal Medicine 04/21/23 documented as of this encounter
--- OUTSIDE RECORDS SUMMARY | 2024-07-26 08:26 | XMS_ITS | Encounter Summary ---
Author Organization [facility] Health Address [address] [facility] [place] [address] Care Team Providers Care Slot Machine Key Person Name Role Phone Joseph Manzanares MD Unavailable Yaya Villatoro MD Primary Care Provider +1- [phone] Reason for Visit * Reason Onset Date Comments Appointment 12/03/2023 See note Encounter Details Date Type Department Care Team (Late Contact Info) Description 12/03/2023 Telephone [facility] - Hematology/Oncology [address] [place] [address] Delvis Bethea Appointment (See note) [...] Recorded PHQ2 TOTAL SCORE 1 11/25/2022 [facility] of Occupat ional Health [...] st Contact Info) Description 08/02/2024 2:20 PM PROFESSIONAL SKATEBOARDER Appointment [facility] [address] [place] [address] 08/02/2024 3:00 PM PROFESSIONAL SKATEBOARDER Office Visit [facility] - Hematology/Oncology [address] [place] [address] [phone] Remi Beckett MD [address] [place] [phone] 08/18/2024 1:45 PM PROFESSIONAL SKATEBOARDER Office Visit [facility] [address] [place] [phone] Neri Delgado MD [address] [place] [address] 08/30/2024 2:20 PM PROFESSIONAL SKATEBOARDER Appointment [facility] [address] [place] [address] documented as of this encounter Visit Diagnoses Not on filedocumented in this encounter Care Teams Slot Machine Key Person Relationship Specialty Start Date End Date Yaya Villatoro MD [address] [place] [phone] PCP - General Internal Medicine 05/04/23 Joseph Manzanares MD [address] [place] [phone] Internal Medicine 04/21/23 documented as of this encounter
--- OUTSIDE RECORDS SUMMARY | 2024-07-26 08:26 | XMS_ITS | Encounter Summary ---
Author Organization [facility] Health Address [address] [facility] [place] [address] Care Team Providers Care Commercial Intelligence Manager Name Role Phone Joseph Manzanares MD Unavailable Yaya Villatoro MD Primary Care Provider +1- [phone] Reason for Visit * Reason Onset Date Comments General 10/28/2023 Encounter Details Date Type Department Care Team ([facility] Contact Info) Description 10/28/2023 Telephone [facility] ONC [address] [place] [address] Alize French RN General Social [...] PM CDT Spoke with the patient per Mixpanelt message from Andria FERRIS, informed Dr Mcintosh is prescribing an antifungal agent. The patient requested the prescription be sent to [facility] pharmacy. The patient reported going to the dentist and being prescribed Augmentin for gum/jaw abscess. Dr. Mcintosh informed. documented in this encounter Plan of Treatment Upcoming Encounters Date Type Department Care Team (Late st Contact Info) Description 08/02/2024 2:20 PM DRYWALLER Appointment [facility] [address] [place] [address] 08/02/2024 3:00 PM DRYWALLER Office Visit [facility] - Hematology/Oncology [address] [place] [phone] Remi Beckett MD [address] [place] [phone] 08/18/2024 1:45 PM DRYWALLER Office Visit [facility] [address] [place] [address] [phone] Neri Delgado MD [address] [place] [address] 08/30/2024 2:20 PM DRYWALLER Appointment [facility] [address] [place] [address] documented as of this encounter Visit Diagnoses Not on filedocumented in this encounter Care Teams Commercial Intelligence Manager Relationship Specialty Start Date End Date Yaya Villatoro MD 1031 [facility] [address] [place] [phone] PCP - General Internal Medicine 05/04/23 Joseph Manzanares MD [address] [place] [phone] Internal Medicine 04/21/23 documented as of this encounter
--- OUTSIDE RECORDS SUMMARY | 2024-07-26 08:26 | XMS_ITS | Encounter Summary ---
Author Organization [facility] Health Address [address] [place] [address] Care Team Providers Care Government Documents Librarian Name Role Phone Joseph Manzanares MD Unavailable Yaya Villatoro MD Primary Care Provider +1- [phone] Encounter Details Date Type Department Care Team (Latest Contact Info) Description 11/04/2023 11:06 AM CDT - 11/04/2023 12:14 PM [facility] Hospital Encounter [facility] [address] [facility] [address] [place] [address] Yaya Villatoro MD [address] [facility] [address] [place] [address] Discharge Disposition: Home or Self [...] Date Recorded PHQ2 TOTAL SCORE 1 11/25/2022 [facility] [place] of Occupat ional Health - Occupational Stress [...] naloxone HCl (Narcan) 4 MG/0.1ML nasal spray [place] 1 (one) spray into the nose as [...] st Contact Info) Description 08/02/2024 2:20 PM MARKETING SPECIALIST Appointment [facility] [address] [place] [address] 08/02/2024 3:00 PM MARKETING SPECIALIST Office Visit [facility] - Hematology/Oncology [facility]1 [place] [phone] Remi Beckett MD [address] [place] [phone] 08/18/2024 1:45 PM MARKETING SPECIALIST Office Visit [facility] - ENT [address] [place] [phone] Neri Delgado MD [address] [place] [address] 08/30/2024 2:20 PM MARKETING SPECIALIST Appointment [facility] [address] [place] [address] documented as of this encounter Procedures Procedure [...] ve Non-reacti ve 11/04/2023 12:05 PM CDT [facility] Blood BLOOD SPECIMEN / Unknown Lab Venipuncture / Unknown 11/04/2023 11:07 AM CDT 11/04/2023 11:13 AM CDT Remi Beckett MD LAB - CHEMISTRY ORDERABLES [facility] [address] [place] [address], [place] [phone] * HEPATITIS B SURFACE ANTIBODY (11/04/2023 11:07 AM CDT) Hepatitis B Virus Surface Antibody Non-react oswaldo Non-react oswaldo 11/04/2023 12:05 PM CDT [facility] Comment: < 8 mIU/mL Hepatitis B surface Antibody (HBsAb). Nonreactive for HBsAb - individual is considered not immune to Hepatitis B Virus infection. Hepatitis B Surface Antibody Quantitative 0.0 <8.0 mIU/mL 11/04/2023 12:05 PM CDT [facility] Comment: Hepatitis B Surface Antibody Numeric Result Interpretation: ? Nonreactive: ?<8.0 mIU/mL ? Indeterminate: ??8.0 - 12.0 mIU/mL ? Reactive: ?>12.0 mIU/mL ? Blood BLOOD SPECIMEN / Unknown Lab Venipuncture / Unknown 11/04/2023 11:07 AM CDT 11/04/2023 11:13 AM CDT Remi Beckett MD LAB - CHEMISTRY ORDERABLES Performing Organization Address City/[facility]/ZIP Co de Phone Number [address] [address], [facility] [phone] * HEPATITIS B CORE ANTIBODY TOTAL (11/04/2023 11:07 AM CDT) HBc Antibody Total Non-reacti ve Non-reacti ve 11/04/2023 12:05 PM CDT [facility] Blood BLOOD SPECIMEN / Unknown Lab Venipuncture / Unknown 11/04/2023 11:07 AM CDT 11/04/2023 11:13 AM CDT Remi Beckett MD LAB - CHEMISTRY ORDERABLES Performing Organization Address [facility]/ZIP Co de Phone Number [address] [address], [place] [phone] documented in this encounter Visit Diagnoses Diagnosis Encounter for antineoplastic chemotherapy- Primary documented in this encounter Care Teams Government Documents Librarian Relationship Specialty Start Date End Date Yaya Villatoro MD [address] [phone] PCP - General Internal Medicine 05/04/23 Joseph Manzanares MD [address] [place] [address] Internal Medicine 04/21/23 documented as of this encounter
--- OUTSIDE RECORDS SUMMARY | 2024-07-26 08:26 | XMS_ITS | Encounter Summary ---
Author Organization [facility] Health Address [address] [facility] [place] [address] Care Team Providers Care Tripoler Name Role Phone Joseph Manzanares MD Unavailable Yaya Villatoro MD Primary Care Provider +1- [phone] Reason for Visit * Radiology Services (Routine) - Closed Specialty Diagnoses / Procedures Referred By Contac t Referred To Contact Hematology-Oncology Diagnoses Malignant tumor of thyroid gland (HCC) Procedures MRI BRAIN WWO CONTRAST Remi Beckett MD [address] [place] [address] Referral ID Status Reason Start Date Expiration Date Visits Re quested Visits Authorized [id number] Closed 10/29/2023 11/27/2023 1 1 Encounter Details Date Type Department Care Team (Latest Contact Info) Description 11/05/2023 2:30 PM CDT - 11/05/2023 11:59 PM CDT Hospital Encounter [facility] MRI [address] [place] [phone] Remi Beckett MD [address] [place] [address] Discharge Disposition: Home or Self [...] naloxone HCl (Narcan) 4 MG/0.1ML nasal spray [place] 1 (one) spray into the nose as [...] st Contact Info) Description 08/02/2024 2:20 PM STOPPER MAKER Appointment [facility] [address] [place] [address] 08/02/2024 3:00 PM STOPPER MAKER Office Visit [facility] - Hematology/Oncology [address] [place] [phone] Remi Beckett MD [address] [place] [address] 08/18/2024 1:45 PM STOPPER MAKER Office Visit [facility] - ENT [address] [place] [address] Neri Delgado MD [address] [place] [address] 08/30/2024 2:20 PM STOPPER MAKER Appointment [facility] [address] [place] [address] documented as of this encounter Procedures Procedure [...] DATE/TIME OF EXAM: ??11/05/2023 3:45 PM, LOCATION ??[facility] INDICATION: C73: Malignant tumor of thyroid gland [...] CONTRAST, DATE/TIME OF EXAM: 11/05/2023 3:45PM, LOCATION [facility] INDICATION: C73: Malignant tumor of thyroid gland [...] mL documented in this encounter Care Teams Tripoler Relationship Specialty Start Date End Date Yaya Villatoro MD [address] [facility] [address] [place] [phone] PCP - General Internal Medicine 05/04/23 Joseph Manzanares MD [address] [place] [phone] Internal Medicine 04/21/23 documented as of this encounter
--- OUTSIDE RECORDS SUMMARY | 2024-07-26 08:26 | XMS_ITS | Encounter Summary ---
Author Organization [facility] Health Address [address] [place] [address] Care Team Providers Care Business Services Vice President Name Role Phone Joseph Manzanares MD Unavailable Yaya Villatoro MD Primary Care Provider +1- [phone] Encounter Details Date Type Department Care Team [...] Date Recorded PHQ2 TOTAL SCORE 1 11/25/2022 [facility]at ional [facility] [...] st Contact Info) Description 08/02/2024 2:20 PM SCHEDULER Appointment [facility] [address] [place] [address] 08/02/2024 3:00 PM SCHEDULER Office Visit [facility] - Hematology/Oncology [address] [place] [phone] Remi Beckett MD [address] [place] [phone] 08/18/2024 1:45 PM SCHEDULER Office Visit [facility] - ENT [address] [place] [phone] Neri Delgado MD [address] [place] [address] 08/30/2024 2:20 PM SCHEDULER Appointment [facility] [address] [place] [address] documented as of this encounter Visit Diagnoses Not on filedocumented in this encounter Care Teams Business Services Vice President Relationship Specialty Start Date End Date Yaya Villatoro MD [address] [place] [phone] PCP - General Internal Medicine 05/04/23 Joseph Manzanares MD [address] [place] [phone] Internal Medicine 04/21/23 documented as of this encounter
--- OUTSIDE RECORDS SUMMARY | 2024-07-26 08:26 | XMS_ITS | Encounter Summary ---
Author Organization 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 Cancer, metastatic to bone (HCC) Procedures PET CT WHOLE BODY Marcio Mcintosh MD [address] [place] [address] [facility] [address] [place] [address] Referral ID Status Reason Start Date Expiration Date Visits Re quested Visits Authorized [id number] Closed 02/25/2024 05/25/2024 1 1 * Radiology Services (Routine) - Closed Specialty Diagnoses / Procedures Referred By Yuan robins Referred To Contact MRI Diagnoses Thyroid cancer (HCC) Metastasis to bone (HCC) Papillary carcinoma of thyroid (HCC) 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 Cancer, metastatic to bone (HCC) Procedures MRI CERVICAL SPINE WWO Marcio Hendrix MD [address] [place] [address] [facility] [address] [place] [address] Referral ID Status Reason Start Date Expiration Date Visits Re quested Visits Authorized [id number] Closed 02/25/2024 05/25/2024 1 1 Reason for Visit * Consult, Test & Treat (Routine) - Closed Specialty Diagnoses / Procedures Referred By Contricardo t Referred To Contact Radiation Oncology Diagnoses Neoplasm of unspecified behavior of bone, soft tissue, and skin Procedures FOLLOW UP Yaya Villatoro MD [address] [phone] Marcio Mcintosh MD [address] [place] [address] Referral ID Status Reason Start Date Expiration Date V isits Requested Visits Authorized [id number] Closed Insurance Mandate 11/24/2023 05/26/2024 1 1 Encounter Details Date Type Department Care Team (Latest Contact Info) Description 11/24/2023 10:52 AM CDT - 11/24/2023 11:59 PM CDT Hospital Encounter [facility] ONC [address] [place] [address] Marcio Mcintosh MD [facility] [place] [address] Discharge Disposition: Home or Self [...] Recorded PHQ2 TOTAL SCORE 1 11/25/2022 [facility] of Occupat ional Health - Occupational Stress [...] naloxone HCl (Narcan) 4 MG/0.1ML nasal spray [place] 1 (one) spray into the nose as [...] Return Patient Visit Department of Radiation Oncology [facility] ENCOUNTER DATE: 11/24/2023 PATIENT IDENTIFICATION Brisa Walters [...] 5 fractions ending on 10/22/2023 Referring MD: Snuff Container Inspector: Yosi Bustamante MD ENT Surgeon: Neri Delgado [...] 5 mm. She underwent palliative radiotherapy with 3832-6126 cGy in 5 fractions delivered via IMRT [...] naloxone HCl (Narcan) 4 MG/0.1ML nasal spray [place] 1 (one) spray into the nose as [...] follow-up. Report dictated by Froylan Ny DO (human resources vice president). > Dictated by Froylan Ny DO (Nutrition Technician) 10/06/2023 3:25 PM ITiesha DO have [...] of this note, please contact the author [facility] [place] physicians for clarification. Marcio Mcintosh MD 11/24/2023 11:39 AM documented in this encounter Plan of Treatment Upcoming Encounters Date Type Department Care Team (Late st Contact Info) Description 08/02/2024 2:20 PM STILL OPERATOR GIN Appointment [facility] [address] [place] [address] 08/02/2024 3:00 PM STILL OPERATOR GIN Office Visit [facility] - Hematology/Oncology [address] [place] [phone] Remi Beckett MD [address] [place] [phone] 08/18/2024 1:45 PM STILL OPERATOR GIN Office Visit [facility] - ENT [address] [place] [phone] Neri Delgado MD [address] [place] [address] 08/30/2024 2:20 PM STILL OPERATOR GIN Appointment [facility] [address] [place], [place] [phone] documented as of this encounter Results * [...] DATE/TIME OF EXAM: ??02/25/2024 12:38 PM, LOCATION ??[facility] INDICATION: C73: Thyroid cancer (HCC) C79.51: [...] DATE/TIME OF EXAM: 02/25/2024 12:38 PM, LOCATION [facility] INDICATION: C73: Thyroid cancer (HCC) C79.51: [...] lung zone. > Dictated by Tex Andrew (Nutrition Technician) 02/25/2024 10:45 AM ITiesha DO have personally [...] lung zone. > Dictated by Tex Andrew (Nutrition Technician) 02/25/2024 10:45 AM I, Tiesha Sy DO [...] marrow documented in this encounter Care Teams Treating Engineer Relationship Specialty Start Date End Date Yaya Villatoro MD [address] [facility] [address] [place] [phone] PCP - General Internal Medicine 05/04/23 Joseph Manzanares MD [address] [place] [phone] Internal Medicine 04/21/23 documented as of this encounter
--- OUTSIDE RECORDS SUMMARY | 2024-07-26 08:26 | XMS_ITS | Encounter Summary ---
Author Organization [facility] Health Address [address] [place] [address] Care Team Providers Care Aircraft Loadmaster Superintendent Name Role Phone Joseph Manzanares MD Unavailable Yaya Villatoro MD Primary Care Provider [phone]- [phone] Encounter Details Date Type Department Care Team (Latest Contact Info) Description 11/04/2023 12:15 PM CDT - 11/04/2023 11:59 PM CDT Hospital Encounter [facility] [address] [place], [place] [phone] Marcio Mcintosh MD [address] [place], [place] [phone] Discharge Disposition: Home or Self Care Social [...] naloxone HCl (Narcan) 4 MG/0.1ML nasal spray [place] 1 (one) spray into the nose as [...] Return Patient Visit Department of Radiation Oncology [facility] ENCOUNTER DATE: 11/04/2023 PATIENT IDENTIFICATION Brisa Hogan [...] 5 fractions ending on 10/22/2023 Referring MD: Equity Director: Yosi Bustamante MD ENT Surgeon: Neri Delgado [...] 5 mm. She underwent palliative radiotherapy with 6664-1137 cGy in 5 fractions delivered via IMRT [...] naloxone HCl (Narcan) 4 MG/0.1ML nasal spray [place] 1 (one) spray into the nose as [...] Report dictated by Froylan Ny DO (residential carpenter). > Dictated by Froylan Ny DO (Data Sciences Director) 10/06/2023 3:25 PM ITiesha DO have personally [...] this note, please contact the [facility] for clarification. Marcio Mcintosh MD 11/10/2023 10:10 AM documented in this encounter Plan of Treatment Upcoming Encounters Date Type Department Care Team (Late st Contact Info) Description 08/02/2024 2:20 PM SUPPLIES PACKER Appointment [facility] [address] [place] [address] 08/02/2024 3:00 PM SUPPLIES PACKER Office Visit [facility] - Hematology/Oncology [address] [place] [phone] Remi Beckett MD [address] [place] [phone] 08/18/2024 1:45 PM SUPPLIES PACKER Office Visit [facility] - ENT [address] [place] [phone] Neri Delgado MD [address] [place] [address] 08/30/2024 2:20 PM SUPPLIES PACKER Appointment [facility] [address] [place] [address] documented as of this encounter Visit Diagnoses Diagnosis Cervical spine tumor- Primary Neoplasm of unspecified nature of bone, soft tissue, and skin Metastasis to bone (HCC) Secondary malignant neoplasm of bone and bone marrow Papillary carcinoma of thyroid (HCC) Malignant neoplasm of thyroid gland Sore throat Acute pharyngitis documented in this encounter Care Teams Aircraft Loadmaster Superintendent Relationship Specialty Start Date End Date Yaya Villatoro MD [address] [place] [phone] PCP - General Internal Medicine 05/04/23 Joseph Manzanares MD [address] [place] [phone] Internal Medicine 04/21/23 documented as of this encounter
--- OUTSIDE RECORDS SUMMARY | 2024-07-26 08:26 | XMS_ITS | Encounter Summary ---
Author Organization [facility] Health Address [address] [place] [address] Care Team Providers Care Animal Control Supervisor Name Role Phone Joseph Manzanares MD Unavailable Yaya Villatoro MD Primary Care Provider +1- [phone] Encounter Details Date Type Department Care Team [...] Date Recorded PHQ2 TOTAL SCORE 1 11/25/2022 [facility] of Occupat ional [...] st Contact Info) Description 08/02/2024 2:20 PM HAND ALTERATIONS SEAMSTRESS Appointment [facility] [address] [place] [address] 08/02/2024 3:00 PM HAND ALTERATIONS SEAMSTRESS Office Visit [facility] - Hematology/Oncology [address] [place] [phone] Remi Beckett MD [address] [place] [phone] 08/18/2024 1:45 PM HAND ALTERATIONS SEAMSTRESS Office Visit [facility] - ENT [address] [place] [phone] Neri Delgado MD [address] [place] [phone] 08/30/2024 2:20 PM HAND ALTERATIONS SEAMSTRESS Appointment [facility] [address] [place] [address] documented as of this encounter Visit Diagnoses Not on filedocumented in this encounter Care Teams Animal Control Supervisor Relationship Specialty Start Date End Date Yaya Villatoro MD [address] [place] [phone] PCP - General Internal Medicine 05/04/23 Joseph Manzanares MD [address] [place] [phone] Internal Medicine 04/21/23 documented as of this encounter
--- OUTSIDE RECORDS SUMMARY | 2024-07-26 08:26 | XMS_ITS | Encounter Summary ---
Author Organization [facility] Health Address [address] [facility] [place] [address] Care Team Providers Care Street Light Inspector Name Role Phone Joseph Manzanares MD Unavailable Yaya Villatoro MD Primary Care Provider [phone]- [phone] Reason for Referral * OP/Amb RFL Auth (Routine) - Pending Review Specialty Diagnoses / Procedures Referred By Contricardo t Referred To Contact Diagnoses Malignant tumor of thyroid gland (HCC) Procedures EKG 12-LEAD Remi Beckett MD [address] [place] [address] Referral ID Status Reason Start Date Expiration Date V isits Requested Visits Authorized [id number] Pending Review 10/21/2023 10/20/2024 1 1 Encounter Details Date Type Department Care Team (Latest Contact Info) Description 11/01/2023 11:00 AM CDT - 11/01/2023 11:59 PM CDT Hospital Encounter [facility] EKG/HOLTER [address] [place] [phone] Unknown, Provider Discharge Disposition: Home [...] naloxone HCl (Narcan) 4 MG/0.1ML nasal spray [place] 1 (one) spray into the nose as [...] daily 7 tablet 10/28/2023 4 HYDROcodone-acetaminophe n ([place]) 5-325 MG tabletIndications:Cervic al spine tumor,Cancer, metastatic [...] st Contact Info) Description 08/02/2024 2:20 PM ROLL FORMING MACHINE SET UP OPERATOR Appointment [facility] [address] [place] [phone] 08/02/2024 3:00 PM ROLL FORMING MACHINE SET UP OPERATOR Office Visit [facility] - Hematology/Oncology [address] [place] [phone] Remi Beckett MD [address] [place] [phone] 08/18/2024 1:45 PM ROLL FORMING MACHINE SET UP OPERATOR Office Visit [facility] - ENT [address] [place] [phone] Neri Delgado MD [address] [place] [phone] 08/30/2024 2:20 PM ROLL FORMING MACHINE SET UP OPERATOR Appointment [facility] [address] [place] [address] documented as of this encounter Procedures Procedure Name Priority Date/Time Associated Diagnosis Comments EKG 12-LEAD Routine 11/01/2023 11:15 AM CDT Malignant tumor of thyroid gland (HCC) documented in this encounter Results * EKG 12-LEAD (11/01/2023 11:15 AM CDT) Ventricular Rate 81 BPM [facility] MUSE Atrial Rate 81 BPM [facility] MUSE P-R Interval 118 ms [facility] MUSE QRS Duration ms 86 ms [facility] MUSE Q-T Interval ms 398 ms [facility] MUSE QTC Calculation (Bezet) 462 ms [facility]USE Calculated P [place] 58 degrees [facility] Calculated R [place] 35 degrees [facility] MUSE Calculated T [place] 44 degrees [facility] MUSE Interpretation EKG NORMAL SINUS RHYTHM POSSIBLE LEFT ATRIAL ENLARGEMENT BORDERLINE ECG WHEN COMPARED WITH ECG OF 14-SEP-2022 13:58, NO SIGNIFICANT CHANGE WAS FOUND Confirmed by CLARE ROMERO, JAE ([id number]) on 11/03/2023 8:25:26 PM [facility] MUSE 11/01/2023 11:1 5 AM CDT 11/03/2023 8:25 PM CDT Remi Beckett MD ECG ORDERABLES [facility] M[facility] documented in this encounter Visit Diagnoses Diagnosis Malignant tumor of thyroid gland (HCC) Malignant neoplasm of thyroid gland documented in this encounter Care Teams Street Light Inspector Relationship Specialty Start Date End Date Yaya Villatoro MD [address] [facility] [address] [place] [phone] PCP - General Internal Medicine 05/04/23 Joseph Manzanares MD [address] [place] [phone] Internal Medicine 04/21/23 documented as of this encounter
--- OUTSIDE RECORDS SUMMARY | 2024-07-26 08:27 | XMS_ITS | Encounter Summary ---
Author Organization [facility] Health Address [address] [facility] [place] [address] Care Team Providers Care Elementary Classroom Teacher Name Role Phone Joseph Manzanares MD Unavailable Yaya Villatoro MD Primary Care Provider +1- [phone] Encounter Details Date Type Department Care Team (Late st Contact Info) Description 10/18/2023 Oncology Treatment Summary [facility] RAD ONC [facility] [place], [place] [phone] Unknown, Provider Social History Tobacco Use Types [...] st Contact Info) Description 08/02/2024 2:20 PM GROUNDS CARETAKER Appointment [facility] [address] [place] [address] 08/02/2024 3:00 PM GROUNDS CARETAKER Office Visit [facility] - Hematology/Oncology [address] [place] [phone] Remi Beckett MD [address] [place] [phone] 08/18/2024 1:45 PM GROUNDS CARETAKER Office Visit [facility] - ENT [address] [place] [phone] Neri Delgado MD [address] [place] [phone] 08/30/2024 2:20 PM GROUNDS CARETAKER Appointment [facility] [address] [place] [address] documented as of this encounter Procedures Procedure [...] Summary (10/22/2023 11:18 AM CDT) Course ID [id number] ine RAD ONC TREATMENT Course First Treatment [...] Summary (10/21/2023 11:19 AM CDT) Course ID [id number] ine RAD ONC TREATMENT Course First Treatment [...] Summary (10/20/2023 11:11 AM CDT) Course ID [id number] ine RAD ONC TREATMENT Course First Treatment [...] Summary (10/19/2023 11:25 AM CDT) Course ID [id number] ine RAD ONC TREATMENT Course First Treatment [...] RADIATION ONCOLOGY O RDERABLES Performing Organization Address City/State/[facility] Co de Phone Number RAD ONC TREATMENT * Rad Onc Aria Session Summary (10/18/2023 1:44 PM CDT) Course ID [id number] ine RAD ONC TREATMENT Course First Treatment [...] filedocumented in this encounter Care Teams Elementary Classroom Teacher Relationship Specialty Start Date End Date Yaya Villatoro MD [address] [phone] PCP - General Internal Medicine 05/04/23 Joseph Manzanares MD [address] [place] [address] Internal Medicine 04/21/23 documented as of this encounter
--- OUTSIDE RECORDS SUMMARY | 2024-07-26 08:27 | XMS_ITS | Encounter Summary ---
Author Organization [facility] Health Address [address] [facility] [place] [address] Care Team Providers Care Pellet Preparation Operator Name Role Phone Joseph Manzanares MD Unavailable Yaya Villatoro MD Primary Care Provider +1- [phone] Encounter Details Date Type Department Care Team (Latest Contact Info) Description 09/09/2023 1:32 PM DEMO COORDINATOR - 09/09/2023 11:59 PM [facility] Hospital Encounter [facility] LAB OP DRAW STATION [address] [place] [phone] Discharge Disposition: Home or Self Care Social [...] Recorded PHQ2 TOTAL SCORE 1 11/25/2022 [facility] Occupat ional Health [...] naloxone HCl (Narcan) 4 MG/0.1ML nasal spray [place] 1 (one) spray into the nose as [...] st Contact Info) Description 08/02/2024 2:20 PM DEMO COORDINATOR Appointment [facility] [address] [place] [address] 08/02/2024 3:00 PM DEMO COORDINATOR Office Visit [facility] - Hematology/Oncology [address] [place] [phone] Remi Beckett MD [address] [place] [phone] 08/18/2024 1:45 PM DEMO COORDINATOR Office Visit [facility] - ENT [address] [place] [address] [phone] Neri Delgado MD [address] [place] [address] 08/30/2024 2:20 PM DEMO COORDINATOR Appointment [facility] [address] [place] [address] documented as of this encounter Procedures Procedure Name Priority Date/Time Associated Diagnosis Comments THYROGLOBULIN REFLEX PROFILE Routine 09/09/2023 1:43 PM DEMO COORDINATOR Hypocalcemia Thyroid cancer (CMS/HCC) THYROGLOBULIN BY ANTONIETA RFLXED Routine 09/09/2023 1:43 PM DEMO COORDINATOR Hypocalcemia Thyroid cancer (CMS/HCC) TSH REFLEX FREE T4 Routine 09/09/2023 1: 43 PM DEMO COORDINATOR Hypocalcemia Thyroid cancer (CMS/HCC) RENAL FUNCTION PANEL Routine 09/09/2023 1:43 PM DEMO COORDINATOR Hypocalcemia Thyroid cancer (CMS/HCC) T4 FREE Routine 09/09/2023 1:43 PM DEMO COORDINATOR Hypocalcemia Thyroid cancer (CMS/HCC) documented in this encounter Results * (ABNORMAL) THYROGLOBULIN BY ANTONIETA RFLXED (09/09/2023 1:43 PM DEMO COORDINATOR) Thyroglobulin by ANTONIETA 385.5(H) 1.5 - 38.5 ng/mL 09/10/2023 7:08 PM DEMO COORDINATOR [facility] ([facility]) Comment: According to the National Academy of [...] is 0.1 ng/mL Thyroglobulin measured by [employer] Immunometric Assay Blood BLOOD SPECIMEN / Unknown Lab Venipuncture / Unknown 09/09/2023 1:43 PM DEMO COORDINATOR 09/09/2023 2:18 PM DEMO COORDINATOR Narrative [facility] ([facility]) - 09/10/2023 7:08 PM DEMO COORDINATOR Performed at: ??01 - [facility] [address] ??[id number] Semiconductor Wafer Inspector: Oral Melendez PhD, Phone: ??[phone] Yosi Bustamante MD LAB - CHEMISTRY ORD ERABLES [facility]) [address] [place] [address] * T4 FREE (09/09/2023 1:43 PM DEMO COORDINATOR) T4 Free 1.4 0.7 - 1.5 ng/dL 09/09/2023 3:52 PM DEMO COORDINATOR [facility] Blood BLOOD SPECIMEN / Unknown Lab Venipuncture / Unknown 09/09/2023 1:43 PM DEMO COORDINATOR 09/09/2023 2:26 PM DEMO COORDINATOR Yosi Bustamante MD LAB - CHEMISTRY ORD ERABLES Performing Organization Address [facility] Co de Phone Number [address] [address], [facility] [phone] * (ABNORMAL) TSH REFLEX FREE T4 (09/09/2023 1:43 PM DEMO COORDINATOR) [facility] TSH 0.010(L) 0.350 - 4.940 uIU/mL 09/09/2023 3:18 PM DEMO COORDINATOR [facility] Blood BLOOD SPECIMEN / Unknown Lab Venipuncture / Unknown 09/09/2023 1:43 PM DEMO COORDINATOR 09/09/2023 2:26 PM DEMO COORDINATOR Yosi Bustamante MD LAB - CHEMISTRY ORD ERABLES Performing Organization Address [facility]/ZIP Co de Phone Number [address] [address], [facility] [phone] * THYROGLOBULIN REFLEX PROFILE (09/09/2023 1:43 PM DEMO COORDINATOR) Pathologist [facility] Thyroglobulin Antibody <1.0 0.0 - 0.9 IU/mL 09/10/2023 7:08 PM DEMO COORDINATOR [facility] ([facility]) Comment: Thyroglobulin Antibody measured by [employer] It should be noted that the presence of thyroglobulin antibodies may not be pathogenic nor diagnostic, especially at very low levels. The assay unemployment benefits claims taker has found that four percent of individuals without evidence of thyroid disease or autoimmunity will have positive TgAb levels up to 4 IU/mL. Blood BLOOD SPECIMEN / Unknown Lab Venipuncture / Unknown 09/09/2023 1:43 PM DEMO COORDINATOR 09/09/2023 2:18 PM DEMO COORDINATOR Narrative [facility] ([facility]) - 09/10/2023 7:08 PM DEMO COORDINATOR Performed at: ??01 - [facility] [place] [address] [place], [place] ??[id number] Semiconductor Wafer Inspector: Oral Melendez PhD, Phone: ??[phone] Yosi Bustamante MD LAB - CHEMISTRY ORD ERABLES [facility]) [address] [place] [address], [facility] * (ABNORMAL) RENAL FUNCTION PANEL (09/09/2023 1:43 PM DEMO COORDINATOR) BUN 15 7 - 26 mg/dL 09/09/2023 3:08 PM [facility] Creatinine 0.80 0.56 - 0.96 mg/dL 09/09/2023 3:08 PM [facility] Sodium 139 136 - 145 mmol/L 09/09/2023 3:08 PM [facility] Potassium 3.7 3.5 - 4.5 mmol/L 09/09/2023 3:08 PM [facility] Chloride 104 98 - 107 mmol/L 09/09/2023 3:08 PM [facility] CO2 24 22 - 29 mmol/L 09/09/2023 3:08 PM [facility] Glucose 103 70 - 115 mg/dL 09/09/2023 3:08 PM [facility] Albumin 3.8 3.4 - 5.0 g/dL 09/09/2023 3:08 PM [facility] Calcium 8.9 8.4 - 10.2 mg/dL 09/09/2023 3:08 PM [facility] Phosphorus 4.7 2.9 - 5.1 mg/dL 09/09/2023 3:08 PM [facility] Anion Gap 11 6 - 16 09/09/2023 3:08 PM [facility] BUN/Creatinine Ratio 19 7 - 23 09/09/2023 3:08 PM [facility] Osmolality Calculated 289 275 - 295 mOsm/kg 09/09/2023 3:08 PM [facility] eGFR by CKD-EPI 82(L) >=90 mL/min/1.7 3 m2 09/09/2023 3:08 PM [facility] Blood BLOOD SPECIMEN / Unknown Lab Venipuncture / Unknown 09/09/2023 1:43 PM DEMO COORDINATOR 09/09/2023 2:26 PM DEMO COORDINATOR Yosi Bustamante MD LAB - CHEMISTRY ORD ERABLES [facility] [address] [place] [address], [facility] [phone] documented in this encounter Visit Diagnoses Diagnosis Hypocalcemia- Primary Thyroid cancer (CMS/HCC) Malignant neoplasm of thyroid gland documented in this encounter Care Teams Pellet Preparation Operator Relationship Specialty Start Date End Date Yaya Villatoro MD [address] [facility] [address] [place] [address] PCP - General Internal Medicine 05/04/23 Joseph Manzanares MD [address] [place] [phone] Internal Medicine 04/21/23 documented as of this encounter
--- OUTSIDE RECORDS SUMMARY | 2024-07-26 08:27 | XMS_ITS | Encounter Summary ---
Author Organization [facility] Address [address] [facility] [address] Care Team Providers Care Pigment Pumper Name Role Phone Joseph Manzanares MD Unavailable Yaya Villatoro MD Primary Care Provider [phone]- [phone] Reason for Referral * Evaluate & Treat (Routine) - Closed Specialty Diagnoses / Procedures Referred By Yuan robins Referred To Contact Oncology-Medical Diagnoses Thyroid cancer (HCC) Neri Delgado MD [address] [place] [phone] MD [address] [place] [address] Referral ID Status Reason Start Date Expiration Date V isits Requested Visits Authorized [id number] Closed Specialty Services Required 10/14/2023 10/13/2024 1 1 Encounter Details Date Type Department Care Team (Late st Contact Info) Description 10/14/2023 Orders Only [facility] - ENT [address] [place] [phone] Neri Delgado MD [address] [place] [phone] Thyroid cancer (HCC) Social History Tobacco Use [...] st Contact Info) Description 08/02/2024 2:20 PM DEXTRINE MIXER Appointment [facility] [address] [place] [address] 08/02/2024 3:00 PM DEXTRINE MIXER Office Visit [facility] Group - Hematology/Oncology [address] [place] [phone] Remi Beckett MD [address] [place] [phone] 08/18/2024 1:45 PM DEXTRINE MIXER Office Visit [facility] - ENT [address] [place] [phone] Neri Delgado MD [address] [place] [phone] 08/30/2024 2:20 PM DEXTRINE MIXER Appointment [facility] [address] [place] [address] Scheduled Referrals Name Type Priority Associated Diagnoses Order Schedule AMB REFERRAL TO HEMATOLOGY ONCOLOGY Outpatient Referral Routine Thyroid cancer (HCC) 1 Occurrences starting 10/14/2023 until 10/13/2024 documented as of this encounter Visit Diagnoses Diagnosis Thyroid cancer (HCC)- Primary Malignant neoplasm of thyroid gland documented in this encounter Care Teams Pigment Pumper Relationship Specialty Start Date End Date Yaya Villatoro MD [address] [phone] PCP - General Internal Medicine 05/04/23 Joseph Manzanares MD [address] [place] [address] Internal Medicine 04/21/23 documented as of this encounter
--- OUTSIDE RECORDS SUMMARY | 2024-07-26 08:27 | XMS_ITS | Encounter Summary ---
Author Organization [facility] Address [address] [facility] [place] [address] Care Team Providers Care Clinical Staff Pharmacist Name Role Phone Joseph Manzanares MD Unavailable Yaya Villatoro MD Primary Care Provider +1- [phone] Reason for Visit * Radiology Services (Routine) - Closed Specialty Diagnoses / Procedures Referred By Contact Referred To Contact Positron Emission Tomography Diagnoses Postoperative hypothyroidism Thyroid cancer (HCC) Other hypoparathyroidism (HCC) Procedures PET CT WHOLE BODY Yosi Bustamante MD [address] [place] [address] [address] [place] [address] [facility] Pet Op [address] [place] [address] Referral ID Status Reason Start Date Expiration Date Visits Re quested Visits Authorized [id number] Closed 10/04/2023 01/02/2024 1 1 Encounter Details Date Type Department Care Team (Latest Contact Info) Description 10/06/2023 1:46 PM CDT - 10/06/2023 11:59 PM CDT Hospital Encounter [facility] PET [address] [place] [address] Yosi Bustamante MD [address] [place] [address] [address] [place] [address] Discharge Disposition: Home or Self Care Social [...] naloxone HCl (Narcan) 4 MG/0.1ML nasal spray [place] 1 (one) spray into the nose as [...] st Contact Info) Description 08/02/2024 2:20 PM ROPEMAN Appointment [facility] [address] [place] [address] 08/02/2024 3:00 PM ROPEMAN Office Visit [facility]ician Group - Hematology/Oncology [address] [place] [phone] Remi Beckett MD [address] [place] [phone] 08/18/2024 1:45 PM ROPEMAN Office Visit [facility]ician Group - ENT [address] [place] [phone] Neri Delgado MD [address] [place] [address] 08/30/2024 2:20 PM ROPEMAN Appointment [facility] [address] [place] [address] documented as of this encounter Procedures Procedure Name Priority Date/Time Associated Diagnosis Comments PET CT WHOLE BODY Routine 10/06/2023 3:3 9 PM CDT Postoperative hypothyroidism Thyroid cancer (HCC) Other hypoparathyroidism GLUCOSE SCREEN - POCT (IP) [facility] STAT 10/06/2023 1:40 PM CDT documented in this encounter Results * GLUCOSE SCREEN - POCT (IP) [facility] (10/06/2023 1:40 PM CDT) Glucose WB/POC 98 70 - 115 mg/dL [facility] POCT TESTING Blood BLOOD SPECIMEN / Unknown 10/06/2023 1:40 PM CDT Yosi Bustamante MD LAB - POINT OF CARE ORDERABLES [facility] POCT TESTING [address] [place] [address], [facility] [phone] documented in this encounter Visit Diagnoses Not [...] millicuries documented in this encounter Care Teams Clinical Staff Pharmacist Relationship Specialty Start Date End Date Yaya Villatoro MD [address] [facility] [address] [place] [phone] PCP - General Internal Medicine 05/04/23 Joseph Manzanares MD [address] [place] [phone] Internal Medicine 04/21/23 documented as of this encounter
--- OUTSIDE RECORDS SUMMARY | 2024-07-26 08:27 | XMS_ITS | Encounter Summary ---
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 To make an appointment: Please call us at [phone], option 1. To requesting refills or leaving a message for your doctor, Please call [phone], option 2. This is the option to speak to a nurse if they are available. We request that all prescription refills be requested during regular office phone hours. Phone lines are open from 8:00 am to 4:30 pm Wednesday through Wednesday. Our fax number is [phone]. After hours urgent calls that cannot wait untill phone lines are open on the next business day are given to the Endocrine physician window unit air conditioning mechanic. Please call [phone] and identify yourself as a patient in our practice with your doctor's name. The press operator heavy duty will contact the physician window unit air conditioning mechanic. You can g enerally expect a return call within 30 minutes. On weekends, physicians are seeing hospitalized patients and there may be a longer wait. Test and laboratory results: Our practice typically reports lab and test results through letters orMYChart, the [employer] online patient portal. Please allow 5 days from when your tests are completed to receive the results. Visit our website at [email or web address] for additional information about [employer] and an interactive health encyclopedia. PLAN THYROID/NECK [...] <1.0 <1.0 <1.0 <1.0 <1.0 <1.0 <1.0 [facility] Reference Range & Units 03/07/20 15:19 [...] IU/mL <1.0 <1.0 <1.0 <1.0 <1.0 <1.0 [facility] Reference Range & Units 10/07/22 00:12 12/24/22 [...] 288 Albumin/Globulin Ratio 1.1 - 2.3 1.1 [facility] Reference Range & Units 10/21/23 14:50 WBC [...] DATE/TIME OF EXAM: 10/06/2023 3:39 PM, LOCATION [facility] INDICATION: E89.0: Postoperative hypothyroidism C73: Thyroid [...] DATE/TIME OF EXAM: 08/19/2022 3:24 PM, LOCATION [facility] INDICATION: E89.0: Postoperative hypothyroidism C73: Thyroid [...] Stress: No Stress Concern Present (10/02/2022) ? [facility] of Occupational Health - Occupational Stress Questionnaire [...] daily, Disp: 90 capsule, Rfl: 5 HYDROcodone-acetaminophen ([place]) 5-325 MG tablet, Take 1 (one) tablet [...] naloxone HCl (Narcan) 4 MG/0.1ML nasal spray, [place] 1 (one) spray into the nose as [...] st Contact Info) Description 08/02/2024 2:20 PM SECURITY COMPLIANCE ENGINEER Appointment [facility] [address] [place] [address] 08/02/2024 3:00 PM SECURITY COMPLIANCE ENGINEER Office Visit [facility] - Hematology/Oncology [address] [place] [phone] Remi Beckett MD [address] [place] [phone] 08/18/2024 1:45 PM SECURITY COMPLIANCE ENGINEER Office Visit [facility] - ENT [address] [place] [phone] Neri Delgado MD [address] [place] [address] 08/30/2024 2:20 PM SECURITY COMPLIANCE ENGINEER Appointment [facility] [address] [place] [address] documented as of this encounter Procedures Procedure [...] 7 - 26 mg/dL 10/25/2023 3:37 PM CDT [facility] Creatinine 0.81 0.56 - 0.96 mg/dL 10/25/2023 3:37 PM CDT [facility] Sodium 139 136 - 145 mmol/L 10/25/2023 3:37 PM CDT [facility] Potassium 3.8 3.5 - 4.5 mmol/L 10/25/2023 3:37 PM CDT [facility] Chloride 103 98 - 107 mmol/L 10/25/2023 3:37 PM CDT [facility] CO2 27 22 - 29 mmol/L 10/25/2023 3:37 PM CDT [facility] Glucose 88 70 - 115 mg/dL 10/25/2023 3:37 PM [facility] Albumin 3.9 3.4 - 5.0 g/dL 10/25/2023 3:37 PM [facility] Calcium 8.8 8.4 - 10.2 mg/dL 10/25/2023 3:37 PM [facility] Phosphorus 4.7 2.9 - 5.1 mg/dL 10/25/2023 3:37 PM T [facility] Anion Gap 9 6 - 16 10/25/2023 3:37 PM [facility] BUN/Creatinine Ratio 12 7 - 23 10/25/2023 3:37 PM [facility] Osmolality Calculated 286 275 - 295 mOsm/kg 10/25/2023 3:37 PM [facility] eGFR by CKD-EPI 81(L) >=90 mL/min/1.7 3 m2 10/25/2023 3:37 PM [facility] Blood BLOOD SPECIMEN / Unknown Lab Venipuncture / Unknown 10/25/2023 2:45 PM CDT 10/25/2023 3:03 PM CDT Yosi Bustamante MD LAB - CHEMISTRY ORD ERABLES Performing Organization Address [facility] Co de Phone Number [facility] [address] [place] [address], [facility] [phone] * CO US SOFT TISS HEAD&NCK R-T IMG (10/25/2023 [...] marrow documented in this encounter Care Teams Heel Turner Relationship Specialty Start Date End Date Yaya Villatoro MD [address] [facility] [address] [place] [phone] PCP - General Internal Medicine 05/04/23 Joseph Manzanares MD [address] [place] [phone] Internal Medicine 04/21/23 documented as of this encounter
--- OUTSIDE RECORDS SUMMARY | 2024-07-26 08:27 | XMS_ITS | Encounter Summary ---
Author Organization [facility] Health Address [address] [facility] [place] [address] Care Team Providers Care Antique Furniture Repairer Name Role Phone Joseph Manzanares MD Unavailable Yaya Villatoro MD Primary Care Provider +1- [phone] Encounter Details Date Type Department Care Team [...] Date Recorded PHQ2 TOTAL SCORE 1 11/25/2022 [facility] of Occupat ional Health - [...] st Contact Info) Description 08/02/2024 2:20 PM TECHNOLOGY RISK INTERN Appointment [facility] [address] [place] [address] 08/02/2024 3:00 PM TECHNOLOGY RISK INTERN Office Visit [facility] Group - Hematology/Oncology [address] [place] [phone] Remi Beckett MD [address] [place] [phone] 08/18/2024 1:45 PM TECHNOLOGY RISK INTERN Office Visit [facility] - ENT [address] [place] [phone] Neri Delgado MD [address] [place] [address] 08/30/2024 2:20 PM TECHNOLOGY RISK INTERN Appointment [facility] [address] [place] [address] documented as of this encounter Visit Diagnoses Not on filedocumented in this encounter Care Teams Antique Furniture Repairer Relationship Specialty Start Date End Date Yaya Villatoro MD [address] [place] [phone] PCP - General Internal Medicine 05/04/23 Joseph Manzanares MD [address] [place] [phone] Internal Medicine 04/21/23 documented as of this encounter
--- OUTSIDE RECORDS SUMMARY | 2024-07-26 08:27 | XMS_ITS | Encounter Summary ---
Author Organization [facility] Health Address [address] [place] [address] Care Team Providers Care Fire Eater Name Role Phone Joseph Manzanares MD Unavailable Yaya Villatoro MD Primary Care Provider +1- [phone] Encounter Details Date Type Department Care Team [...] st Contact Info) Description 08/02/2024 2:20 PM AUTOMATION AND CONTROLS SUPERVISOR Appointment [facility] [address] [place] [address] 08/02/2024 3:00 PM AUTOMATION AND CONTROLS SUPERVISOR Office Visit [facility]ician Group - Hematology/Oncology [address] [place] [phone] Remi Beckett MD [address] [place] [phone] 08/18/2024 1:45 PM AUTOMATION AND CONTROLS SUPERVISOR Office Visit [facility] - ENT [address] [place] [phone] Neri Delgado MD [address] [place] [address] 08/30/2024 2:20 PM AUTOMATION AND CONTROLS SUPERVISOR Appointment [facility] [address] [place] [address] documented as of this encounter Visit Diagnoses Not on filedocumented in this encounter Care Teams Fire Eater Relationship Specialty Start Date End Date Yaya Villatoro MD [address] [place] [phone] PCP - General Internal Medicine 05/04/23 Joseph Manzanares MD [address] [place] [phone] Internal Medicine 04/21/23 documented as of this encounter
--- OUTSIDE RECORDS SUMMARY | 2024-07-26 08:27 | XMS_ITS | Encounter Summary ---
Author Organization [facility] Address [address] [place] [address] Care Team Providers Care Administrative Assistant Coordinator Name Role Phone Joseph Manzanares MD Unavailable Yaya Villatoro MD Primary Care Provider +1- [phone] Reason for Referral * Radiology Services (Routine) - Closed Specialty Diagnoses / Procedures Referred By Contact Referred To Contact Positron Emission Tomography Diagnoses Postoperative hypothyroidism Thyroid cancer (HCC) Other hypoparathyroidism (HCC) Procedures PET CT WHOLE BODY Yosi Bustamante MD [facility] [address] [place] [address] [facility] Pet Op [address] [place] [address] Referral ID Status Reason Start Date Expiration Date Visits Re quested Visits Authorized [id number] Closed 10/04/2023 01/02/2024 1 1 Reason for Visit * Radiology Services (Routine) - Closed Specialty Diagnoses / Procedures Referred By Contact Referred To Contact Positron Emission Tomography Diagnoses Postoperative hypothyroidism Thyroid cancer (HCC) Other hypoparathyroidism (HCC) Procedures PET CT WHOLE BODY Yosi Bustamante MD [address] [facility] [address] [place] [address] [facility] Pet Op [address] [place] [address] Referral ID Status Reason Start Date Expiration Date Visits Re quested Visits Authorized [id number] Closed 10/04/2023 01/02/2024 1 1 Encounter Details Date Type Department Care Team (Latest Contact Info) Description 10/06/2023 1:29 PM CDT - 10/06/2023 1:45 PM CDT Hospital Encounter [facility] PET [address] [place] [address] Yosi Bustamante MD [address] [facility] [address] [facility] [place] [address] Discharge Disposition: Home or Self Care Social [...] Recorded PHQ2 TOTAL SCORE 1 11/25/2022 [facility] [place] of Occupat ional Health - Occupational Stress [...] naloxone HCl (Narcan) 4 MG/0.1ML nasal spray [place] 1 (one) spray into the nose as [...] st Contact Info) Description 08/02/2024 2:20 PM ORE DRYER Appointment [facility] [address] [place] [address] 08/02/2024 3:00 PM ORE DRYER Office Visit [facility] - Hematology/Oncology [address] [place] [phone] Remi Beckett MD [address] [place] [phone] 08/18/2024 1:45 PM ORE DRYER Office Visit [facility] - ENT [address] [place] [phone] Neri Delgado MD [address] [place] [address] 08/30/2024 2:20 PM ORE DRYER Appointment [facility] [address] [place] [address] documented as of this encounter Procedures Procedure [...] dictated by Froylan Ny DO (vice president underwriting). > Dictated by Froylan Ny DO (Supervisor Drying) 10/06/2023 3:25 PM Tiesha Mckeon DO have personally reviewed and interpreted this examination/study. > Interpreting Provider: Tiesha Sy DO on 10/06/2023 5:11 PM Narrative 10/06/2023 5:11 PM CDT PROCEDURE: ??PET CT WHOLE BODY, DATE/TIME OF EXAM: ??10/06/2023 3:39 PM, LOCATION ??[facility] INDICATION: E89.0: Postoperative hypothyroidism C73: Thyroid cancer [...] DATE/TIME OF EXAM: 10/06/2023 3:39 PM, LOCATION [facility] INDICATION: E89.0: Postoperative hypothyroidism C73: Thyroid cancer [...] dictated by Froylan Ny DO (vice president underwriting). > Dictated by Froylan Ny DO (Supervisor Drying) 10/06/2023 3:25 PM ITiesha DO have personally reviewed and interpreted this examination/study. > Interpreting Provider: Tiesha Sy DO on 10/06/2023 5:11 PM Yosi Bustamante MD [place] ORDERABLES documented in this encounter Visit Diagnoses Diagnosis Postoperative hypothyroidism Postsurgical hypothyroidism Thyroid cancer (HCC) Malignant neoplasm of thyroid gland Other hypoparathyroidism (HCC) documented in this encounter Care Teams Administrative Assistant Coordinator Relationship Specialty Start Date End Date Yaya Villatoro MD [address] [place] [address] PCP - General Internal Medicine 05/04/23 Joseph Manzanares MD [address] [place] [phone] Internal Medicine 04/21/23 documented as of this encounter
--- OUTSIDE RECORDS SUMMARY | 2024-07-26 08:27 | XMS_ITS | Encounter Summary ---
Author Organization [facility] Address [address] [place] [address] Care Team Providers Care Drier Attendant Name Role Phone Joseph Manzanares MD Unavailable Yaya Villatoro MD Primary Care Provider +1- [phone] Encounter Details Date Type Department Care Team (Latest Contact Info) Description 10/20/2023 10:56 AM CDT - 10/20/2023 11:59 PM CDT Hospital Encounter [facility] RAD ONC [address] [place], [place] [phone] Marcio Mcintosh MD [address] [place], [place] [phone] Discharge Disposition: Home or Self Care Social [...] naloxone HCl (Narcan) 4 MG/0.1ML nasal spray [place] 1 (one) spray into the nose as [...] dose 1 mL 06/14/2023 10/25/2023 HYDROcodone-acetamino phen ([place]) 5-325 MG tabletIndications:Cer vical spine tumor,Cancer, metastatic [...] st Contact Info) Description 08/02/2024 2:20 PM MILK TREATER Appointment [facility] [address] [place] [address] 08/02/2024 3:00 PM MILK TREATER Office Visit [facility] - Hematology/Oncology [address] [place] [phone] Remi Beckett MD [address] [place] [phone] 08/18/2024 1:45 PM MILK TREATER Office Visit [facility] - ENT [address] [place] [phone] Neri Delgado MD [address] [place] [address] 08/30/2024 2:20 PM MILK TREATER Appointment [facility] [address] [place] [address] documented as of this encounter Visit Diagnoses [...] marrow documented in this encounter Care Teams Drier Attendant Relationship Specialty Start Date End Date Yaya Vlilatoro MD [address] [place] [phone] PCP - General Internal Medicine 05/04/23 Joseph Manzanares MD [address] [place] [address] Internal Medicine 04/21/23 documented as of this encounter
--- OUTSIDE RECORDS SUMMARY | 2024-07-26 08:27 | XMS_ITS | Encounter Summary ---
Author Organization [facility] Health Address [address] [facility] [place] [address] Care Team Providers Care Business Technology Teacher Name Role Phone Joseph Manzanares MD Unavailable Yaya Villatoro MD Primary Care Provider +1- [phone] Reason for Visit * Reason Onset Date Comments Appointment 09/28/2023 Encounter Details Date Type Department Care Team ([facility] Contact Info) Description 09/28/2023 Telephone [facility] ONC [address] [place] [address] Alize French RN Appointment Social [...] st Contact Info) Description 08/02/2024 2:20 PM BISTRO ATTENDANT Appointment [facility] [address] [place] [address] 08/02/2024 3:00 PM BISTRO ATTENDANT Office Visit [facility] - Hematology/Oncology [address] [place] [phone] Remi Beckett MD [address] [place] [phone] 08/18/2024 1:45 PM BISTRO ATTENDANT Office Visit [facility] - ENT [address] [place] [phone] Neri Delgado MD [address] [place] [address] 08/30/2024 2:20 PM BISTRO ATTENDANT Appointment [facility] [address] [place] [address] documented as of this encounter Visit Diagnoses Not on filedocumented in this encounter Care Teams Business Technology Teacher Relationship Specialty Start Date End Date Yaya Villatoro MD [address] [phone] PCP - General Internal Medicine 05/04/23 Joseph Manzanares MD [address] [place] [phone] Internal Medicine 04/21/23 documented as of this encounter
--- OUTSIDE RECORDS SUMMARY | 2024-07-26 08:27 | XMS_ITS | Encounter Summary ---
Author Organization [facility] Address [address] [facility] [place] [address] Care Team Providers Care Ip Network Architect Name Role Phone Joseph Manzanares MD Unavailable Yaya Villatoro MD Primary Care Provider +1- [phone] Encounter Details Date Type Department Care Team [...] st Contact Info) Description 08/02/2024 2:20 PM FOAM DISPENSER Appointment [facility] [address] [place] [address] 08/02/2024 3:00 PM FOAM DISPENSER Office Visit [facility] - Hematology/Oncology [address] [place] [phone] Remi Beckett MD [address] [place] [phone] 08/18/2024 1:45 PM FOAM DISPENSER Office Visit [facility] - ENT [address] [place] [phone] Neri Delgado MD [address] [place] [address] 08/30/2024 2:20 PM FOAM DISPENSER Appointment [facility] [address] [place] [address] documented as of this encounter Visit Diagnoses Not on filedocumented in this encounter Care Teams Ip Network Architect Relationship Specialty Start Date End Date Yaya Villatoro MD [address] [place] [phone] PCP - General Internal Medicine 05/04/23 Joseph Manzanares MD [address] [place] [phone] Internal Medicine 04/21/23 documented as of this encounter
--- OUTSIDE RECORDS SUMMARY | 2024-07-26 08:27 | XMS_ITS | Encounter Summary ---
Author Organization [facility] Address [address] [facility] [place] [address] Care Team Providers Care Annual Giving Director Name Role Phone Joseph Manzanares MD Unavailable Yaya Villatoro MD Primary Care Provider +1- [phone] Encounter Details Date Type Department Care Team (Late st Contact Info) Description 10/28/2023 Orders Only [facility] [address] [place], [place] [phone] Marcio Mcintosh MD [address] [place], [place] [phone] Social History Tobacco Use Types Packs/Day Years [...] Date Recorded PHQ2 TOTAL SCORE 1 11/25/2022 [facility] of Occupat ional Health - Occupational [...] [facility] [address] [facility] [phone] [facility] Date of Visit: 10/28/2023 Brisa Hogan [id number] Informed of sore throat and will Rx diflucan since just completed her RT and she has steroid nasal spray. She will need to inform us of any changes or worsening. Marcio Mcintosh MD 10/28/2023 3:54 PM documented in this encounter Plan of Treatment Upcoming Encounters Date Type Department Care Team (Late st Contact Info) Description 08/02/2024 2:20 PM BALL MILL OPERATOR Appointment [facility] [address] [place] [address] 08/02/2024 3:00 PM BALL MILL OPERATOR Office Visit [facility] - Hematology/Oncology [address] [place] [address] [phone] Remi Beckett MD [address] [place] [phone] 08/18/2024 1:45 PM BALL MILL OPERATOR Office Visit [facility] E[facility] [address] [place] [phone] Neri Delgado MD [address] [place] [address] 08/30/2024 2:20 PM BALL MILL OPERATOR Appointment [facility] [address] [place] [address] documented as of this encounter Visit Diagnoses Not on filedocumented in this encounter Care Teams Annual Giving Director Relationship Specialty Start Date End Date Yaya Villatoro MD [facility] [address] [phone] PCP - General Internal Medicine 05/04/23 Joseph Manzanares MD [address] [place] [phone] Internal Medicine 04/21/23 documented as of this encounter
--- OUTSIDE RECORDS SUMMARY | 2024-07-26 08:27 | XMS_ITS | Encounter Summary ---
Author Organization [facility] Address [address] [place] [address] Care Team Providers Care Hris Developer Name Role Phone Joseph Manzanares MD Unavailable Yaya Villatoro MD Primary Care Provider +1- [phone] Reason for Visit * Reason Onset Date Comments Appointment 10/13/2023 Encounter Details Date Type Department Care Team (Late st Contact Info) Description 10/13/2023 Telephone [facility] - Centralized Scheduling [address] [place] [phone] Yosi Bustamante MD [address] [place] [address] Appointment Social History Tobacco Use Types Packs/Day [...] her and get her rescheduled. Callback number: [phone] documented in this encounter Plan of Treatment Upcoming Encounters Date Type Department Care Team (Late st Contact Info) Description 08/02/2024 2:20 PM RETAIL BUSINESS MANAGER Appointment [facility] [address] [place] [address] 08/02/2024 3:00 PM RETAIL BUSINESS MANAGER Office Visit [facility] - Hematology/Oncology [address] [place] [phone] Remi Beckett MD [address] [place] [phone] 08/18/2024 1:45 PM RETAIL BUSINESS MANAGER Office Visit [facility] ENT [address] [place] [phone] Neri Delgado MD [address] [place] [address] 08/30/2024 2:20 PM RETAIL BUSINESS MANAGER Appointment [facility] [address] [place] [address] documented as of this encounter Visit Diagnoses Not on filedocumented in this encounter Care Teams Hris Developer Relationship Specialty Start Date End Date Yaya Villatoro MD [address] [facility] [address] [place] [phone] PCP - General Internal Medicine 05/04/23 Joseph Manzanares MD [address] [place] [phone] Internal Medicine 04/21/23 documented as of this encounter
--- OUTSIDE RECORDS SUMMARY | 2024-07-26 08:27 | XMS_ITS | Encounter Summary ---
Author Organization [facility] Health Address [address] [place] [address] Care Team Providers Care Peoplesoft Administrator Name Role Phone Joseph Manzanares MD Unavailable Yaya Villatoro MD Primary Care Provider +1- [phone] Encounter Details Date Type Department Care Team (Latest Contact Info) Description 10/21/2023 11:00 AM CDT - 10/21/2023 2:44 PM CDT Hospital Encounter [facility] ONC [address] [place] [address] Marcio Mcintosh MD [address] [place], [place] [phone] Discharge Disposition: Home or Self Care Social [...] HCl (Narcan) 4 MG/0.1ML nasal spray [place] 1 (one) spray into the nose as [...] dose 1 mL 06/14/2023 10/25/2023 HYDROcodone-acetamino phen ([place]) 5-325 MG tabletIndications:Cer vical spine tumor,Cancer, metastatic [...] st Contact Info) Description 08/02/2024 2:20 PM PHOTO COLORER Appointment [facility] [address] [place] [address] 08/02/2024 3:00 PM PHOTO COLORER Office Visit [facility] - Hematology/Oncology [address] [place] [phone] Remi Beckett MD [address] [place] [phone] 08/18/2024 1:45 PM PHOTO COLORER Office Visit [facility] - ENT [address] [place] [phone] Neri Delgado MD [facility]5 [place] [address] 08/30/2024 2:20 PM PHOTO COLORER Appointment [facility] [address] [place] [address] documented as of this encounter Visit Diagnoses Not on filedocumented in this encounter Care Teams Peoplesoft Administrator Relationship Specialty Start Date End Date Yaya Villatoro MD [address] [place] [phone] PCP - General Internal Medicine 05/04/23 Joseph Manzanares MD [address] [place] [phone] Internal Medicine 04/21/23 documented as of this encounter
--- OUTSIDE RECORDS SUMMARY | 2024-07-26 08:27 | XMS_ITS | Encounter Summary ---
Author Organization [facility] Health Address [address] [facility] [place] [address] Care Team Providers Care Fabric Cutter Name Role Phone Joseph Manzanares MD Unavailable Yaya Villatoro MD Primary Care Provider +1- [phone] Reason for Visit * Reason Onset Date Comments Question 10/28/2023 Encounter Details Date Type Department Care Team (Late st Contact Info) Description 10/28/2023 Telephone [facility] [address] [place] [phone] Radha Joel, JOSY Question Social History Tobacco [...] Recorded PHQ2 TOTAL SCORE 1 11/25/2022 [facility] of Occupat ional Health - Occupational Stress [...] st Contact Info) Description 08/02/2024 2:20 PM CRAYON SORTING MACHINE FEEDER Appointment [facility] [address] [place] [address] 08/02/2024 3:00 PM CRAYON SORTING MACHINE FEEDER Office Visit [facility] - Hematology/Oncology [address] [place] [phone] Remi Beckett MD [address] [place] [phone] 08/18/2024 1:45 PM CRAYON SORTING MACHINE FEEDER Office Visit [facility] - ENT [address] [place] [phone] Neri Delgado MD [address] [place] [address] 08/30/2024 2:20 PM CRAYON SORTING MACHINE FEEDER Appointment [facility] [address] [place] [address] documented as of this encounter Visit Diagnoses Not on filedocumented in this encounter Care Teams Fabric Cutter Relationship Specialty Start Date End Date Yaya Villatoro MD [address] [place] [phone] PCP - General Internal Medicine 05/04/23 Joseph Manzanares MD [address] [place] [phone] Internal Medicine 04/21/23 documented as of this encounter
--- OUTSIDE RECORDS SUMMARY | 2024-07-26 08:27 | XMS_ITS | Encounter Summary ---
Author Organization [facility] Address [address] [facility] [place] [address] Care Team Providers Care Mechanical Design Engineer Products Name Role Phone Joseph Manzanares MD Unavailable Yaya Vilaltoro MD Primary Care Provider +1- [phone] Encounter Details Date Type Department Care Team [...] st Contact Info) Description 08/02/2024 2:20 PM FIELD OPERATIONS SUPERVISOR Appointment [facility] [address] [place] [address] 08/02/2024 3:00 PM FIELD OPERATIONS SUPERVISOR Office Visit [facility] - Hematology/Oncology [address] [place] [phone] Remi Beckett MD [address] [place] [phone] 08/18/2024 1:45 PM FIELD OPERATIONS SUPERVISOR Office Visit [facility] - ENT [address] [place] [phone] Neri Delgado MD [address] [place] [address] 08/30/2024 2:20 PM FIELD OPERATIONS SUPERVISOR Appointment [facility] [address] [place] [address] documented as of this encounter Visit Diagnoses Not on filedocumented in this encounter Care Teams Mechanical Design Engineer Products Relationship Specialty Start Date End Date Yaya Villatoro MD [address] [place] [phone] PCP - General Internal Medicine 05/04/23 Joseph Manzanares MD [address] [place] [address] [phone] Internal Medicine 04/21/23 documented as of this encounter
--- OUTSIDE RECORDS SUMMARY | 2024-07-26 08:27 | XMS_ITS | Encounter Summary ---
Author Organization [facility] Health Address [address] [facility] [place] [address] Care Team Providers Care Property Condition Assessor Name Role Phone Joseph Manzanares MD Unavailable Yaya Villatoro MD Primary Care Provider [phone]- [phone] Encounter Details Date Type Department Care Team (Latest Contact Info) Description 10/25/2023 2:25 PM CDT - 10/25/2023 11:59 PM CDT Hospital Encounter [facility] OP DRAW STATION [address] [place] [address] Yaya Villatoro MD [address] [facility] [address] [place] [address] Discharge Disposition: Home or Self [...] naloxone HCl (Narcan) 4 MG/0.1ML nasal spray [place] 1 (one) spray into the nose as [...] 1 mL 2 10/25/2023 4 HYDROcodone-acetaminophe n ([place]) 5-325 MG tabletIndications:Cervic al spine tumor,Cancer, metastatic to bone (HCC),Thyroid cancer (HCC),Malignant tumor of thyroid gland (HCC),Secondary malignant neoplasm of bone (HCC) Take 1 (one) tablet by mouth every 8 hours as needed for Pain 12 tablet 10/20/2023 4 documented as of this encounter Plan of Treatment Upcoming Encounters Date Type Department Care Team (Late st Contact Info) Description 08/02/2024 2:20 PM SKILLS TRAINER Appointment [facility] [address] [place] [address] 08/02/2024 3:00 PM SKILLS TRAINER Office Visit [facility] - Hematology/Oncology [address] [place] [address] Remi Beckett MD [address] [place] [phone] 08/18/2024 1:45 PM SKILLS TRAINER Office Visit [facility] - ENT [address] [place] [phone] Neri Delgado MD [address] [place] [address] 08/30/2024 2:20 PM SKILLS TRAINER Appointment [facility] [address] [place] [address] documented as of this encounter Procedures Procedure [...] 38.5 ng/mL 10/27/2023 7:08 PM CDT [facility] ([facility]) Comment: Results confirmed on dilution. According to [...] 2:45 PM CDT 10/25/2023 2:[address] [facility] ([facility]) - 10/27/2023 7:08 PM CDT Performed at: ??01 - [facility] [address] [place], [place] ??[id number] Clinical Services Professional: Oral Melendez PhD, Phone: ??[phone] Yosi Bustamante MD LAB - CHEMISTRY ORD ERABLES [facility] ([facility]) [address] [place] [address] * (ABNORMAL) RENAL FUNCTION PANEL (10/25/2023 2:45 PM CDT) BUN 10 7 - 26 mg/dL 10/25/2023 3:37 PM CDT [facility] Creatinine 0.81 0.56 - 0.96 mg/dL 10/25/2023 3:37 PM CDT [facility] Sodium 139 136 - 145 mmol/L 10/25/2023 3:37 PM CDT [facility] Potassium 3.8 3.5 - 4.5 mmol/L 10/25/2023 3:37 PM CDT [facility] Chloride 103 98 - 107 mmol/L 10/25/2023 3:37 PM CDT [facility] CO2 27 22 - 29 mmol/L 10/25/2023 3:37 PM CDT [facility] Glucose 88 70 - 115 mg/dL 10/25/2023 3:37 PM CDT [facility] Albumin 3.9 3.4 - 5.0 g/dL 10/25/2023 3:37 PM CDT [facility] Calcium 8.8 8.4 - 10.2 mg/dL 10/25/2023 3:37 PM CDT [facility] Phosphorus 4.7 2.9 - 5.1 mg/dL 10/25/2023 3:37 PM CDT [facility] Anion Gap 9 6 - 16 10/25/2023 3:37 PM CDT [facility] BUN/Creatinine Ratio 12 7 - 23 10/25/2023 3:37 PM CDT [facility] Osmolality Calculated 286 275 - 295 mOsm/kg 10/25/2023 3:37 PM CDT [facility] eGFR by CKD-EPI 81(L) >=90 mL/min/1.7 3 m2 10/25/2023 3:37 PM CDT [facility] Blood BLOOD SPECIMEN / Unknown Lab Venipuncture / Unknown 10/25/2023 2:45 PM CDT 10/25/2023 3:03 PM CDT Yosi Bustamante MD LAB - CHEMISTRY ORD ERABLES [facility] [address] [place] [address], [facility] [phone] * THYROGLOBULIN REFLEX PROFILE (10/25/2023 2:45 PM CDT) Pathologist [facility] Thyroglobulin Antibody <1.0 0.0 - 0.9 IU/mL 10/27/2023 7:08 PM CDT [facility] ([facility]) Comment: Thyroglobulin Antibody measured by Lisbet Lyons Methodology It should be noted that the presence of thyroglobulin antibodies may not be pathogenic nor diagnostic, especially at very low levels. The assay supervisor pipeline has found that four percent of individuals without evidence of thyroid disease or autoimmunity will have positive TgAb levels up to 4 IU/mL. Blood BLOOD SPECIMEN / Unknown Lab Venipuncture / Unknown 10/25/2023 2:45 PM CDT 10/25/2023 2:58 PM CDT Narrative [facility] ([facility]) - 10/27/2023 7:08 PM CDT Performed at: ??[address], [place] ??[id number] Clinical Services Professional: Oral Melendez PhD, Phone: ??[phone] Yosi Bustamante MD LAB - CHEMISTRY ORD MATTBLES Performing Organization Address City/[facility]/ZIP Co de Phone Number [facility] ([facility]) [address] [place] [address], [facility] * (ABNORMAL) TSH (10/25/2023 2:45 PM CDT) TSH <0.010(L) 0.350 - 4.940 uIU/mL 10/25/2023 3:55 PM CDT [facility] Blood BLOOD SPECIMEN / Unknown Lab Venipuncture / Unknown 10/25/2023 2:45 PM CDT 10/25/2023 3:03 PM CDT Yosi Bustamante MD LAB - CHEMISTRY ORD JENISE Performing Organization Address City/[facility]/ZIP Co de Phone Number [facility] [address] [place] [address], [facility] [phone] documented in this encounter Visit Diagnoses Diagnosis Postoperative hypothyroidism Postsurgical hypothyroidism Thyroid cancer (HCC) Malignant neoplasm of thyroid gland Hypocalcemia Other hypoparathyroidism (HCC) Malignant tumor of thyroid gland (HCC) Malignant neoplasm of thyroid gland Cancer, metastatic to bone (HCC) Secondary malignant neoplasm of bone and bone marrow documented in this encounter Care Teams Property Condition Assessor Relationship Specialty Start Date End Date Yaya Villatoro MD [address] [phone] PCP - General Internal Medicine 05/04/23 Joseph Manzanares MD [address] [place] [phone] Internal Medicine 04/21/23 documented as of this encounter
--- OUTSIDE RECORDS SUMMARY | 2024-07-26 08:27 | XMS_ITS | Encounter Summary ---
Author Organization [facility] Health Address [address] [place] [address] Care Team Providers Care Registered Appraiser Name Role Phone Joseph Manzanares MD Unavailable Yaya Villatoro MD Primary Care Provider +1- [phone] Encounter Details Date Type Department Care Team [...] st Contact Info) Description 08/02/2024 2:20 PM VIDEO EDITING INTERN Appointment [facility] [address] [place] [address] 08/02/2024 3:00 PM VIDEO EDITING INTERN Office Visit [facility] - Hematology/Oncology [address] [place] [phone] Remi Beckett MD [address] [place] [phone] 08/18/2024 1:45 PM VIDEO EDITING INTERN Office Visit [facility] - ENT [address] [place] [phone] Neri Delgado MD [address] [place] [address] 08/30/2024 2:20 PM VIDEO EDITING INTERN Appointment [facility] [address] [place] [address] documented as of this encounter Visit Diagnoses Not on filedocumented in this encounter Care Teams Registered Appraiser Relationship Specialty Start Date End Date Yaya Villatoro MD [address] [place] [phone] PCP - General Internal Medicine 05/04/23 Joseph Manzanares MD [address] [place] [phone] Internal Medicine 04/21/23 documented as of this encounter
--- OUTSIDE RECORDS SUMMARY | 2024-07-26 08:27 | XMS_ITS | Encounter Summary ---
Author Organization [facility] Address [address] [place] [address] Care Team Providers Care Block Mason Name Role Phone Joseph Manzanares MD Unavailable Yaya Villatoro MD Primary Care Provider +1- [phone] Reason for Referral * Radiology Services (Routine) - Closed Specialty Diagnoses / Procedures Referred By Contac t Referred To Contact MRI Diagnoses Cancer, metastatic to bone (HCC) Cervical spine tumor Procedures MRI CERVICAL SPINE WWO Marcio Hendrix MD [address] [place] [address] [facility] [address] [place] [phone] Referral ID Status Reason Start Date Expiration Date Visits Re quested Visits Authorized [id number] Closed 10/01/2023 12/30/2023 1 1 Reason for Visit * Radiology Services (Routine) - Closed Specialty Diagnoses / Procedures Referred By Contac t Referred To Contact MRI Diagnoses Cancer, metastatic to bone (HCC) Cervical spine tumor Procedures MRI CERVICAL SPINE WWO Marcio Hendrix MD [address] [place] [address] [facility] [address] [place] [phone] Referral ID Status Reason Start Date Expiration Date Visits Re quested Visits Authorized [id number] Closed 10/01/2023 12/30/2023 1 1 Encounter Details Date Type Department Care Team (Latest Contact Info) Description 10/01/2023 9:30 AM CDT - 10/01/2023 11:59 PM CDT Hospital Encounter [facility] MRI [address] [place] [address] Marcio Mcintosh MD [address] [place] [address] Discharge Disposition: Home or Self Care Social [...] Recorded PHQ2 TOTAL SCORE 1 11/25/2022 [facility] Occupat ional [facility] - Occupational Stress [...] naloxone HCl (Narcan) 4 MG/0.1ML nasal spray [place] 1 (one) spray into the nose as [...] st Contact Info) Description 08/02/2024 2:20 PM MAINFRAME SYSTEMS ENGINEER Appointment [facility] [address] [place] [address] 08/02/2024 3:00 PM MAINFRAME SYSTEMS ENGINEER Office Visit [facility] - Hematology/Oncology [address] [place] [phone] Remi Beckett MD [address] [place] [phone] 08/18/2024 1:45 PM MAINFRAME SYSTEMS ENGINEER Office Visit [facility] - ENT [address] [place] [phone] Neri Delgado MD [address] [place] [address] 08/30/2024 2:20 PM MAINFRAME SYSTEMS ENGINEER Appointment [facility] [address] [place] [address] documented as of this encounter Procedures Procedure [...] attention recommended on follow-up. > Interpreting Provider: Paerl Jean-Baptiste MD on 10/01/2023 5:54 PM Narrative 10/01/2023 5:54 PM CDT PROCEDURE: ??MRI CERVICAL SPINE WWO CONT, DATE/TIME OF EXAM: ??10/01/2023 10:44 AM, LOCATION ??[facility] INDICATION: C79.51: Cancer, metastatic to bone (HCC) [...] DATE/TIME OF EXAM: 10/01/2023 10:44 AM, LOCATION [facility] INDICATION: C79.51: Cancer, metastatic to bone (HCC) [...] tissues are again noted in the left C5-[id number] foramen extending into the adjacent ventral epidural [...] new enhancing soft tissue in the left C4-[id number] foramina. Residual soft tissue enhancing lesions in the left C5-[id number] foramina, left C6-C7 neural foramina also involving [...] mL documented in this encounter Care Teams Block Mason Relationship Specialty Start Date End Date Yaya Villatoro MD [address] [facility] [address] [place] [phone] PCP - General Internal Medicine 05/04/23 Joseph Manzanares MD [address] [place] [address] Internal Medicine 04/21/23 documented as of this encounter
--- OUTSIDE RECORDS SUMMARY | 2024-07-26 08:27 | XMS_ITS | Encounter Summary ---
Author Organization [facility] Address [address] [facility] [place] [address] Care Team Providers Care Disc Pad Grinder Name Role Phone Joseph Manzanares MD Unavailable Yaya Villatoro MD Primary Care Provider [phone]- [phone] Reason for Referral * Radiology Services (Routine) - Closed Specialty Diagnoses / Procedures Referred By Contac t Referred To Contact Hematology-Oncology Diagnoses Malignant tumor of thyroid gland (HCC) Procedures MRI BRAIN WWO CONTRAST Remi Beckett MD [address] [place] [address] Referral ID Status Reason Start Date Expiration Date Visits Re quested Visits Authorized [id number] Closed 10/29/2023 11/27/2023 1 1 * Laboratory Services (Routine) - Pending Review Specialty Diagnoses / Procedures Referred By Contac t Referred To Contact Hematology and Oncology Diagnoses Malignant tumor of thyroid gland (HCC) Procedures TEMPUS XF Remi Beckett MD [address] [place] [address] Referral ID Status Reason Start Date Expiration Date V isits Requested Visits Authorized [id number] Pending Review 10/21/2023 10/20/2024 1 1 * Laboratory Services (Routine) - Closed Specialty Diagnoses / Procedures Referred By Contricardo t Referred To Contact Hematology and Oncology Diagnoses Malignant tumor of thyroid gland (HCC) Procedures TEMPUS XT Remi Beckett MD [address] [place] [address] Referral ID Status Reason Start Date Expiration Date Visits Re quested Visits Authorized [id number] Closed 10/21/2023 10/20/2024 1 1 * Consultation (Routine) - Pending Review Specialty Diagnoses / Procedures Referred By Yuan robins Referred To Contact Diagnoses Cancer, metastatic to bone (HCC) Remi Beckett MD [address] [place] [address] Referral ID Status Reason Start Date Expiration Date Visits Requested Visits Authorized [id number] Pending Review Specialty Services Required 10/21/2023 10/20/2024 1 1 * OP/Amb RFL Auth (Routine) - Pending Review Specialty Diagnoses / Procedures Referred By Yuan robins Referred To Contact Diagnoses Malignant tumor of thyroid gland (HCC) Procedures EKG 12-LEAD Remi Beckett MD [address] [place] [address] Referral ID Status Reason Start Date Expiration Date V isits Requested Visits Authorized [id number] Pending Review 10/21/2023 10/20/2024 1 1 Reason for Visit * Reason Comments Establish Care Thyroid cancer Encounter Details Date Type Department Care Team (Latest Contact Info) Description 10/21/2023 1:20 PM CDT Office Visit [facility] - Hematology/Oncology [address] [place] [phone] Remi Beckett MD [address] [place] [phone] Malignant tumor of thyroid gland (HCC) [...] Date Recorded PHQ2 TOTAL SCORE 1 11/25/2022 [facility] of Occupat ional Health - Occupational Stress [...] the physicians and other specialists at the [facility]. [facility]: For symptom management or prescription questions during business hours (Mon-Fri 8AM-4:30PM), pleasecall the triage nurse. Outside of business hours, please call the hematology/oncology doctor on-call. 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 She is currently going to rehab to get stronger. She also experiences pain, the pain is in the neck and pain between her shoulders, intermittent, sharp, moderate to severe, causes her to wake up at night. She has started using Ophelia which brings the pain down to 0/10, [...] by mouth 3 times daily ??? HYDROcodone-acetaminophen (Ophelia) 5-325 MG tablet Take 1 (one) tablet [...] naloxone HCl (Narcan) 4 MG/0.1ML nasal spray [place] 1 (one) spray into the nose as [...] of disease LABS: Recent Labs Component Name 10/07/22 0012 10/05/22223310/05/226 WBC 8.1 8.9 9.3 RBC 3.03* 3.18* [...] DATE/TIME OF EXAM: 10/06/2023 3:39 PM, LOCATION [facility] INDICATION: E89.0: Postoperative hypothyroidism [...] inguinal nodes. Musculoskeletal: Postoperative changes of a C2-[id number] instrumented spinal fusion. There are multifocal areas [...] Report dictated by Froylan Ny DO (residential fee appraiser). > Dictated by Froylan Ny DO (Jersey Knitter) 10/06/2023 3:25 PM ITiesha DO have personally reviewed and interpreted this examinati on/study. > Interpreting Provider: Tiesha Sy DO on 10/06/2023 5:11 PM MRI CERVICAL SPINE WWO CONT Result Date: 10/01/2023 PROCEDURE: MRI CERVICAL SPINE WWO CONT, DATE/TIME OF EXAM: 10/01/2023 10:44 AM, LOCATION [facility] INDICATION: C79.51: Cancer, metastatic [...] and the response rate among patients with [id number] thyroid cancer (SELECT trial). The median progression-free [...] directed treatments Will get in touch her appointment clerk Blood pressure monitoring at home for the first two weeks RTC in two weeks Plan discussed with Dr. Sujit Robles Hem Onc fellow DOI: [id number] Associated attestation - Remi Beckett MD - 10/26/2023 3:31 PM CDT Attending Physician Supervisory Note I personally interviewed and examined the patient with the bathhouse attendant. 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 Discussed benefits/risks. I will reach out to her appointment clerk to see if further WARD treatment would [...] RTC in 2 weeks. Remi Beckett MD Dog And Cat Food Cookthree dimensional map modeler Department of Hematology & Medical Oncology [facility]: documented in this encounter Plan of Treatment Upcoming Encounters Date Type Department Care Team (Late st Contact Info) Description 08/02/2024 2:20 PM BABY NURSE Appointment [facility] [address] [place] [address] 08/02/2024 3:00 PM BABY NURSE Office Visit [facility] - Hematology/Oncology [address] [place] [phone] Remi Beckett MD [address] [place] [phone] 08/18/2024 1:45 PM BABY NURSE Office Visit [facility] - ENT [address] [place] [phone] Neri Delgado MD [address] [place] [phone] 08/30/2024 2:20 PM BABY NURSE Appointment [facility] [address] [place] [phone] Scheduled Referrals Name Type Priority Associated Diagnoses [...] DATE/TIME OF EXAM: ??11/05/2023 3:45 PM, LOCATION ??[facility] INDICATION: C73: Malignant tumor [...] CONTRAST, DATE/TIME OF EXAM: 11/05/2023 3:45PM, LOCATION [facility] INDICATION: C73: Malignant tumor [...] oswaldo Non-react oswaldo 11/04/2023 12:05 PM CDT [facility] Comment: < 8 mIU/mL Hepatitis B surface Antibody (HBsAb). Nonreactive for HBsAb - individual is considered not immune to Hepatitis B Virus infection. Hepatitis B Surface Antibody Quantitative 0.0 <8.0 mIU/mL 11/04/2023 12:05 PM CDT [facility] Comment: Hepatitis B Surface Antibody Numeric Result Interpretation: ? Nonreactive: ?<8.0 mIU/mL ? Indeterminate: ??8.0 - 12.0 mIU/mL ? Reactive: ?>12.0 mIU/mL ? Blood BLOOD SPECIMEN / Unknown Lab Venipuncture / Unknown 11/04/2023 11:07 AM CDT 11/04/2023 11:13 AM CDT Remi Beckett MD LAB - CHEMISTRY ORDERABLES Performing Organization Address [facility] Co de Phone Number [address] [address], [place] [phone] * HEPATITIS B CORE ANTIBODY TOTAL (11/04/2023 11:07 AM CDT) Pathologist [facility] HBc Antibody Total Non-reacti ve Non-reacti ve 11/04/2023 12:05 PM CDT [facility] Blood BLOOD SPECIMEN / Unknown Lab Venipuncture / Unknown 11/04/2023 11:07 AM CDT 11/04/2023 11:13 AM CDT Remi Beckett MD LAB - CHEMISTRY ORDERABLES Performing Organization Address [facility] Co de Phone Number [address] [address], [place] [facility] [phone] * EKG 12-LEAD (11/01/2023 11:15 AM CDT) Ventricular Rate [address] BPM [facility] MUSE Atrial Rate 81 BPM [facility] P-R Interval 118 ms [facility] QRS Duration ms 86 [address] [facility] Q-T Interval ms 398 ms [facility] QTC Calculation (Bezet) 462 ms [facility] MUSE Calculated P [place] 58 [address] [facility] MUSE Calculated R [place] 35 [address] [facility] MUSE Calculated T [place] 44 [address] [facility] MUSE Interpretation EKG NORMAL SINUS RHYTHM POSSIBLE LEFT ATRIAL ENLARGEMENT BORDERLINE ECG WHEN COMPARED WITH ECG OF 14-SEP-2022 13:58, NO SIGNIFICANT CHANGE WAS FOUND Confirmed by CLARE ROMERO, JAE ([id number]) on 11/03/2023 8:25:[address] [facility] MUSE 11/01/2023 11:1 5 AM CDT 11/03/2023 8:25 PM CDT Remi Beckett MD ECG ORDERABLES [facility] * (ABNORMAL) COMPREHENSIVE METABOLIC PANEL (10/21/2023 2:50 PM CDT) BUN 14 7 - 26 mg/dL 10/21/2023 3:32 PM [facility] Creatinine 0.80 0.56 - 0.96 mg/dL 10/21/2023 3:32 PM [facility] Sodium 138 136 - 145 mmol/L 10/21/2023 3:32 PM [facility] Potassium 3.6 3.5 - 4.5 mmol/L 10/21/2023 3:32 PM [facility] Chloride 103 98 - 107 mmol/L 10/21/2023 3:32 PM [facility] CO2 22 22 - 29 mmol/L 10/21/2023 3:32 PM [facility] Glucose 122(H) 70 - 115 mg/dL 10/21/2023 3:32 PM [facility] Calcium 8.8 8.4 - 10.2 mg/dL 10/21/2023 3:32 PM [facility] Protein Total 7.4 6.0 - 8.3 g/dL 10/21/2023 3:32 PM [facility] Albumin 3.8 3.4 - 5.0 g/dL 10/21/2023 3:32 PM [facility] Bilirubin Total 0.2 0.2 - 1.2 mg/dL 10/21/2023 3:32 PM [facility] Alkaline Phosphatase 85 40 - 150 U/L 10/21/2023 3:32 PM [facility] ALT 15 5 - 55 U/L 10/21/2023 3:32 PM [facility] AST 16 5 - 34 U/L 10/21/2023 3:32 PM [facility] Anion Gap 13 6 - 16 10/21/2023 3:32 PM [facility] BUN/Creatinine Ratio 18 7 - 23 10/21/2023 3:32 PM [facility] Osmolality Calculated 288 275 - 295 mOsm/kg 10/21/2023 3:32 PM [facility] Albumin/Globulin Ratio 1.1 1.1 - 2.3 10/21/2023 3:32 PM [facility] eGFR by CKD-EPI 82(L) >=90 mL/min/1.7 3 m2 10/21/2023 3:32 PM [facility] Blood BLOOD SPECIMEN / Unknown Lab Venipuncture / Unknown 10/21/2023 2:50 PM CDT 10/21/2023 3:04 PM CDT Remi Beckett MD LAB - CHEMISTRY ORDERABLES [facility] [address] [place] [phone], [facility] [phone] * CBC W/ DIFFERENTIAL (10/21/2023 2:50 PM CDT) WBC 7.6 4.0 - 10.7 x10E9/L 10/21/2023 3:09 PM [facility] RBC Count 4.83 3.90 - 5.20 x10E12/L 10/21/2023 3:09 PM [facility] Hemoglobin 13.7 11.9 - 15.8 g/dL 10/21/2023 3:09 PM [facility] Hematocrit 41.1 34.8 - 46.1 % 10/21/2023 3:09 PM [facility] MCV 85.1 80.0 - 98.0 fL 10/21/2023 3:09 PM [facility] MCH 28.4 26.7 - 33.6 pg 10/21/2023 3:09 PM [facility] MCHC 33.3 31.7 - 36.3 g/dL 10/21/2023 3:09 PM [facility] RDW-CV 13.1 11.3 - 14.8 % 10/21/2023 3:09 PM [facility] Platelet Count 290 150 - 420 x10E9/L 10/21/2023 3:09 PM [facility] MPV 9.6 7.8 - 11.4 fL 10/21/2023 3:09 PM [facility] Neutrophil % 68.6 41.0 - 74.0 % 10/21/2023 3:09 PM [facility] Lymphocyte % 19.8 17.0 - 47.0 % 10/21/2023 3:09 PM [facility] Monocyte % 9.3 3.0 - 11.0 % 10/21/2023 3:09 PM [facility] Eosinophil % 1.6 0.0 - 7.0 % 10/21/2023 3:09 PM [facility] Basophil % 0.4 0.0 - 1.6 % 10/21/2023 3:09 PM [facility] Immature Granulocytes % 0.3 0.0 - 1.0 % 10/21/2023 3:09 PM [facility] Neutrophil Absolute 5.24 1.60 - 7.50 x10E9/L 10/21/2023 3:09 PM [facility] Lymphocyte Absolute 1.51 1.00 - 4.40 x10E9/L 10/21/2023 3:09 PM [facility] Monocyte Absolute 0.71 0.15 - 1.00 x10E9/L 10/21/2023 3:09 PM [facility] Eosinophil Absolute 0.12 0.00 - 0.60 x10E9/L 10/21/2023 3:09 PM [facility] Basophil Absolute 0.03 0.00 - 0.13 x10E9/L 10/21/2023 3:09 PM CDT [facility] Blood BLOOD SPECIMEN / Unknown Lab Venipuncture / Unknown 10/21/2023 2:50 PM CDT 10/21/2023 3:04 PM CDT Remi Beckett MD LAB - HEMATOLOGY ORDERABLES [facility] [place] [address] [place] [address], [facility] [phone] * [facility] BLOOD DRAW (10/21/2023 2:49 PM CDT) Blood Sent to [facility] 10/22/2023 9:00 AM CDT [facility] ([facility]) Comment:Collection and sendo ut completed. Blood BLOOD SPECIMEN / Unknown Lab Venipuncture / Unknown 10/21/2023 2:49 PM CDT 10/22/2023 8:33 AM CDT Remi Beckett MD LAB - HEMATOLOGY ORDERABLES Performing Organization Address City/[facility]/ZIP Co de Phone Number [facility] ([facility]) [address] [place] [address] * [facility] XF (10/21/2023 2:37 PM CDT) Pathology/Cytolo gy MISCELLANEOUS SAMPLES / Unknown 10/21/2023 2:37 PM CDT 10/21/2023 2:37 PM CDT Remi Beckett MD LAB - PATHOLOGY/ CYTOLOGY ORDERABLES [facility] ([facility]) [address] [place] [address] * [facility] XT (10/21/2023 2:37 PM CDT) Pathology/Cytolo gy MISCELLANEOUS SAMPLES / Unknown 10/21/2023 2:37 PM CDT 10/21/2023 2:37 PM CDT Remi Beckett MD LAB - PATHOLOGY/ CYTOLOGY ORDERABLES [facility] ([facility]) [address] [place] [address] documented in this encounter Visit Diagnoses Diagnosis Malignant tumor of thyroid gland (HCC)- Primary Malignant neoplasm of thyroid gland Cancer, metastatic to bone (HCC) Secondary malignant neoplasm of bone and bone marrow Encounter for antineoplastic chemotherapy Malignant tumor of thyroid gland (HCC) Malignant neoplasm of thyroid gland documented in this encounter Care Teams Disc Pad Grinder Relationship Specialty Start Date End Date Yaya Villatoro MD [address] [facility] [address] [place] [phone] PCP - General Internal Medicine 05/04/23 Joseph Manzanares MD [address] [place] [phone] Internal Medicine 04/21/23 documented as of this encounter
--- OUTSIDE RECORDS SUMMARY | 2024-07-26 08:27 | XMS_ITS | Encounter Summary ---
Author Organization [facility] Health Address [address] [facility] [place] [address] Care Team Providers Care Lead Security Officer Name Role Phone Joseph Manzanares MD Unavailable Yaya Villatoro MD Primary Care Provider [phone]- [phone] Encounter Details Date Type Department Care Team (Latest Contact Info) Description 10/21/2023 2:45 PM CDT - 10/21/2023 11:59 PM CDT Hospital Encounter [facility] [address] [facility], [address] [place] [address] Discharge Disposition: Home or Self Care Social [...] naloxone HCl (Narcan) 4 MG/0.1ML nasal spray [place] 1 (one) spray into the nose as [...] dose 1 mL 06/14/2023 10/25/2023 HYDROcodone-acetamino phen ([place]) 5-325 MG tabletIndications:Cer vical spine tumor,Cancer, metastatic [...] st Contact Info) Description 08/02/2024 2:20 PM HOME HEALTH RN Appointment [facility] [address] [place] [address] 08/02/2024 3:00 PM HOME HEALTH RN Office Visit [facility] - Hematology/Oncology [address] [place] [phone] Remi Beckett MD [address] [place] [phone] 08/18/2024 1:45 PM HOME HEALTH RN Office Visit [facility] - ENT [address] [place] [phone] Neri Delgado MD [address] [place] [address] 08/30/2024 2:20 PM HOME HEALTH RN Appointment [facility] [address] [place] [address] documented as of this encounter Procedures Procedure [...] * T4 FREE (10/21/2023 2:50 PM CDT) Pathologist [facility] T4 Free 1.4 0.7 - 1.5 ng/dL 10/21/2023 4:22 PM CDT [facility] Blood BLOOD SPECIMEN / Unknown Lab Venipuncture / Unknown 10/21/2023 2:50 PM CDT 10/21/2023 3:04 PM CDT Remi Beckett MD LAB - CHEMISTRY ORDERABLES [facility] [address] [place] [address], [facility] [phone] * (ABNORMAL) COMPREHENSIVE METABOLIC PANEL (10/21/2023 2:50 PM CDT) Pathologist [facility] BUN 14 7 - 26 mg/dL 10/21/2023 3:32 PM CDT [facility] Creatinine 0.80 0.56 - 0.96 mg/dL 10/21/2023 3:32 PM [facility] Sodium 138 136 - 145 mmol/L 10/21/2023 3:32 PM [facility] Potassium 3.6 3.5 - 4.5 mmol/L 10/21/2023 3:32 PM [facility] Chloride 103 98 - 107 mmol/L 10/21/2023 3:32 PM [facility] CO2 22 22 - 29 mmol/L 10/21/2023 3:32 PM [facility] Glucose 122(H) 70 - 115 mg/dL 10/21/2023 3:32 PM [facility] Calcium 8.8 8.4 - 10.2 mg/dL 10/21/2023 3:32 PM [facility] Protein Total 7.4 6.0 - 8.3 g/dL 10/21/2023 3:32 PM [facility] Albumin 3.8 3.4 - 5.0 g/dL 10/21/2023 3:32 PM [facility] Bilirubin Total 0.2 0.2 - 1.2 mg/dL 10/21/2023 3:32 PM [facility] Alkaline Phosphatase 85 40 - 150 U/L 10/21/2023 3:32 PM [facility] ALT 15 5 - 55 U/L 10/21/2023 3:32 PM [facility] AST 16 5 - 34 U/L 10/21/2023 3:32 PM [facility] Anion Gap 13 6 - 16 10/21/2023 3:32 PM [facility] BUN/Creatinine Ratio 18 7 - 23 10/21/2023 3:32 PM [facility] Osmolality Calculated 288 275 - 295 mOsm/kg 10/21/2023 3:32 PM [facility] Albumin/Globulin Ratio 1.1 1.1 - 2.3 10/21/2023 3:32 PM [facility] eGFR by CKD-EPI 82(L) >=90 mL/min/1.7 3 m2 10/21/2023 3:32 PM [facility] Blood BLOOD SPECIMEN / Unknown Lab Venipuncture / Unknown 10/21/2023 2:50 PM CDT 10/21/2023 3:04 PM CDT Remi Beckett MD LAB - CHEMISTRY ORDERABLES [facility] [address] [place] [address], [facility] [phone] * CBC W/ DIFFERENTIAL (10/21/2023 2:50 PM CDT) WBC 7.6 4.0 - 10.7 x10E9/L 10/21/2023 3:09 PM CDT [facility] RBC Count 4.83 3.90 - 5.20 x10E12/L 10/21/2023 3:09 PM T [facility] Hemoglobin 13.7 11.9 - 15.8 g/dL 10/21/2023 3:09 PM [facility] Hematocrit 41.1 34.8 - 46.1 % 10/21/2023 3:09 PM [facility] MCV 85.1 80.0 - 98.0 fL 10/21/2023 3:09 PM T [facility] MCH 28.4 26.7 - 33.6 pg 10/21/2023 3:09 PM [facility] MCHC 33.3 31.7 - 36.3 g/dL 10/21/2023 3:09 PM T [facility] RDW-CV 13.1 11.3 - 14.8 % 10/21/2023 3:09 PM [facility] Platelet Count 290 150 - 420 x10E9/L 10/21/2023 3:09 PM T [facility] MPV 9.6 7.8 - 11.4 fL 10/21/2023 3:09 PM [facility] Neutrophil % 68.6 41.0 - 74.0 % 10/21/2023 3:09 PM [facility] Lymphocyte % 19.8 17.0 - 47.0 % 10/21/2023 3:09 PM [facility] Monocyte % 9.3 3.0 - 11.0 % 10/21/2023 3:09 PM [facility] Eosinophil % 1.6 0.0 - 7.0 % 10/21/2023 3:09 PM CDT [facility] Basophil % 0.4 0.0 - 1.6 % 10/21/2023 3:09 PM CDT [facility] Immature Granulocytes % 0.3 0.0 - 1.0 % 10/21/2023 3:09 PM CDT [facility] Neutrophil Absolute 5.24 1.60 - 7.50 x10E9/L 10/21/2023 3:09 PM CDT [facility] Lymphocyte Absolute 1.51 1.00 - 4.40 x10E9/L 10/21/2023 3:09 PM CDT [facility] Monocyte Absolute 0.71 0.15 - 1.00 x10E9/L 10/21/2023 3:09 PM CDT [facility] Eosinophil Absolute 0.12 0.00 - 0.60 x10E9/L 10/21/2023 3:09 PM CDT [facility] Basophil Absolute 0.03 0.00 - 0.13 x10E9/L 10/21/2023 3:09 PM CDT [facility] Blood BLOOD SPECIMEN / Unknown Lab Venipuncture / Unknown 10/21/2023 2:50 PM CDT 10/21/2023 3:04 PM CDT Remi Beckett MD LAB - HEMATOLOGY ORDERABLES Performing Organization Address [facility] Co de Phone Number [address] [address], [facility] [phone] * (ABNORMAL) TSH REFLEX FREE T4 (10/21/2023 2:50 PM CDT) TSH <0.010(L) 0.350 - 4.940 uIU/mL 10/21/2023 3:49 PM CDT [facility] Blood BLOOD SPECIMEN / Unknown Lab Venipuncture / Unknown 10/21/2023 2:50 PM CDT 10/21/2023 3:04 PM CDT Remi Beckett MD LAB - CHEMISTRY ORDERABLES [facility] [address] [place] [address], [facility] [phone] documented in this encounter Visit Diagnoses Diagnosis Malignant tumor of thyroid gland (HCC)- Primary Malignant neoplasm of thyroid gland documented in this encounter Care Teams Lead Security Officer Relationship Specialty Start Date End Date Yaya Villatoro MD [address] [facility] [address] [place] [address] PCP - General Internal Medicine 05/04/23 Joseph Manzanares MD [address] [place] [phone] Internal Medicine 04/21/23 documented as of this encounter
--- OUTSIDE RECORDS SUMMARY | 2024-07-26 08:27 | XMS_ITS | Encounter Summary ---
Author Organization [facility] Health Address [address] [place] [address] Care Team Providers Care Business Department Chair Name Role Phone Joseph Manzanares MD Unavailable Yaya Villatoro MD Primary Care Provider [phone]- [phone] Reason for Visit * Reason Onset Date Comments Appointment 10/15/2023 Encounter Details Date Type Department Care Team ([facility] Contact Info) Description 10/15/2023 Telephone [facility] [address] [place] [address] Alize French RN Appointment Social [...] st Contact Info) Description 08/02/2024 2:20 PM ULTRASOUND TECH Appointment [facility] [address] [place] [address] 08/02/2024 3:00 PM ULTRASOUND TECH Office Visit [facility] Physician Group - Hematology/Oncology [address] [place] [phone] Remi Beckett MD [address] [place] [phone] 08/18/2024 1:45 PM ULTRASOUND TECH Office Visit [facility] - ENT [address] [place] [address] [phone] Neri Delgado MD [address] [place] [id number] 08/30/2024 2:20 PM ULTRASOUND TECH Appointment [facility] [address] [place] [phone] documented as of this encounter Visit Diagnoses Not on filedocumented in this encounter Care Teams Business Department Chair Relationship Specialty Start Date End Date Yaya Villatoro MD [address] [place] [phone] PCP - General Internal Medicine 05/04/23 Joseph Manzanares MD [address] [place] [phone] Internal Medicine 04/21/23 documented as of this encounter
--- OUTSIDE RECORDS SUMMARY | 2024-07-26 08:27 | XMS_ITS | Encounter Summary ---
Author Organization [facility] Health Address [address] [facility] [facility] [place] [address] Care Team Providers Care Foster Winder Name Role Phone Joseph Manzanares MD Unavailable Yaya Villatoro MD Primary Care Provider +1- [phone] Encounter Details Date Type Department Care Team (Latest Contact Info) Description 10/18/2023 1:02 PM CDT - 10/18/2023 11:59 PM CDT Hospital Encounter [facility] [address] [place], [place] [phone] Marcio Mcintosh MD [address] [place], [place] [phone] Discharge Disposition: Home or Self Care Social [...] naloxone HCl (Narcan) 4 MG/0.1ML nasal spray [place] 1 (one) spray into the nose as [...] dose 1 mL 06/14/2023 10/25/2023 HYDROcodone-acetamino phen ([place]) 5-325 MG tabletIndications:Cer vical spine tumor,Cancer, metastatic [...] Contact Info) Description 08/02/2024 2:20 PM ORE ROASTER Appointment [facility] [address] [place] [address] 08/02/2024 3:00 PM ORE ROASTER Office Visit [facility] - Hematology/Oncology [address] [place] [address] Remi Beckett MD [address] [place] [phone] 08/18/2024 1:45 PM ORE ROASTER Office Visit [facility] - ENT 12[address] [place] [address] Neri Delgado MD [facility]5 [place] [address] 08/30/2024 2:20 PM ORE ROASTER Appointment [facility] [address] [place] [address] documented as of this encounter Visit Diagnoses Not on filedocumented in this encounter Care Teams Foster Winder Relationship Specialty Start Date End Date Yaya Villatoro MD [address] [place] [phone] PCP - General Internal Medicine 05/04/23 Joseph Manzanares MD [address] [place] [phone] Internal Medicine 04/21/23 documented as of this encounter
--- OUTSIDE RECORDS SUMMARY | 2024-07-26 08:27 | XMS_ITS | Encounter Summary ---
Author Organization [facility] Address [address] [place] [address] Care Team Providers Care Deep Well Contractor Name Role Phone Joseph Manzanares MD Unavailable Yaya Villatoro MD Primary Care Provider +1- [phone] Reason for Referral * Consultation (Routine) - Pending Review Specialty Diagnoses / Procedures Referred By Yuan robins Referred To Contact Diagnoses Cervical spine tumor Cancer, metastatic to bone (HCC) Thyroid cancer (HCC) Malignant tumor of thyroid gland (HCC) Secondary malignant neoplasm of bone (HCC) Marcio Mcintosh MD [address] [place] [address] Referral ID Status Reason Start Date Expiration Date Visits Requested Visits Authorized [id number] Pending Review Specialty Services Required 10/11/2023 10/10/2024 99 99 * Radiology Services (Routine) - Closed Specialty Diagnoses / Procedures [facility] Referred To Contact Diagnoses Cervical spine tumor Cancer, metastatic to bone (HCC) Thyroid cancer (HCC) Malignant tumor of thyroid gland (HCC) Secondary malignant neoplasm of bone (HCC) Procedures CT RAD THERAPY WO CONTRAST Marcio Mcintosh MD [address] [place] [address] [facility] [address] [place] [phone] Referral ID Status Reason Start Date Expiration Date Visits Re quested Visits Authorized [id number] Closed 10/18/2023 01/16/2024 1 1 Encounter Details Date Type Department Care Team (Latest Contact Info) Description 10/11/2023 3:00 PM CDT - 10/11/2023 11:59 PM CDT Hospital Encounter [facility] [address] [place] [address] Marcio Mcintosh MD [address] [place], [place] [phone] Discharge Disposition: Home or Self Care Social [...] Recorded PHQ2 TOTAL SCORE 1 11/25/2022 [facility] [place] of Occupat ional Health - Occupational Stress [...] Body Mass Index 25.94 08/06/2023 2:26 PM CEMENT TRUCK LOADER documented in this encounter Functional Status [...] naloxone HCl (Narcan) 4 MG/0.1ML nasal spray [place] 1 (one) spray into the nose as [...] dose 1 mL 06/14/2023 10/25/2023 HYDROcodone-acetamino phen ([place]) 5-325 MG tabletIndications:Cer vical spine tumor,Cancer, metastatic [...] Return Patient Visit Department of Radiation Oncology [facility] ENCOUNTER DATE: 10/11/2023 PATIENT IDENTIFICATION Brisa Hogan [...] at the C1- T2 region. Referring MD: Rum Processing Operator:?Yosi Bustamante MD ENT Surgeon: ??Neri Delgado MD [...] and was planned for future surgery. ?? Birsa??has underwent surgical stabiliation and decompression on 10/02/2022. [...] naloxone HCl (Narcan) 4 MG/0.1ML nasal spray [place] 1 (one) spray into the nose as [...] Report dictated by Froylan Ny DO (radiology tech). > Dictated by Froylan Ny DO (Nanotechnology Engineering Technologist) 10/06/2023 3:25 PM Tiesha Mckeon DO have [...] st Contact Info) Description 08/02/2024 2:20 PM CEMENT TRUCK LOADER Appointment [facility] [address] [place] [address] 08/02/2024 3:00 PM CEMENT TRUCK LOADER Office Visit [facility] - Hematology/Oncology [address] [place] [phone] Remi Beckett MD [address] [place] [phone] 08/18/2024 1:45 PM CEMENT TRUCK LOADER [facility] [address] [place] [phone] Neri Delgado MD [address] [place] [address] 08/30/2024 2:20 PM CEMENT TRUCK LOADER Appointment [facility] [address] [place] [phone] Pending Results Name Type Priority Associated Diagnoses [...] marrow documented in this encounter Care Teams Deep Well Contractor Relationship Specialty Start Date End Date Yaya Villatoro MD [address] [phone] PCP - General Internal Medicine 05/04/23 Joseph Manzanares MD [address] [place] [phone] Internal Medicine 04/21/23 documented as of this encounter
--- OUTSIDE RECORDS SUMMARY | 2024-07-26 08:27 | XMS_ITS | Encounter Summary ---
Author Organization [facility] Address [address] [facility] [place] [address] Care Team Providers Care Industrial Accountant Name Role Phone Joseph Manzanares MD Unavailable Yaya Villatoro MD Primary Care Provider +1- [phone] Reason for Visit * Radiology Services (Routine) - Closed Specialty Diagnoses / Procedures Referred By Contac t Referred To Contact Diagnoses Cervical spine tumor Cancer, metastatic to bone (HCC) Thyroid cancer (HCC) Malignant tumor of thyroid gland (HCC) Secondary malignant neoplasm of bone (HCC) Procedures CT RAD THERAPY WO CONTRAST Marcio Mcintosh MD [address] [place] [address] [phone] Referral ID Status Reason Start Date Expiration Date Visits Re quested Visits Authorized [id number] Closed 10/18/2023 01/16/2024 1 1 Encounter Details Date Type Department Care Team (Latest Contact Info) Description 10/12/2023 12:59 PM CDT - 10/12/2023 11:59 PM CDT Hospital Encounter [facility]5 [place] [address] Marcio Mcintosh MD [address] [place] [address] Discharge Disposition: Home or Self [...] Date Recorded PHQ2 TOTAL SCORE 1 11/25/2022 [facility] [place] of Occupat ional Health - Occupational Stress [...] naloxone HCl (Narcan) 4 MG/0.1ML nasal spray [place] 1 (one) spray into the nose as [...] dose 1 mL 06/14/2023 10/25/2023 HYDROcodone-acetamino phen ([place]) 5-325 MG tabletIndications:Cer vical spine tumor,Cancer, metastatic [...] Contact Info) Description 08/02/2024 2:20 PM PILOT PLANT OPERATOR Appointment [facility] [address] [place] [address] 08/02/2024 3:00 PM PILOT PLANT OPERATOR Office Visit [facility] - Hematology/Oncology [address] [place] [phone] Remi Beckett MD [address] [place] [phone] 08/18/2024 1:45 PM PILOT PLANT OPERATOR Office Visit [facility] - ENT [address] [place] [phone] Neri Delgado MD [address] [place] [address] 08/30/2024 2:20 PM PILOT PLANT OPERATOR Appointment [facility] [address] [place] [phone] Pending Results Name Type Priority Associated Diagnoses [...] documented in this encounter Care Teams Industrial Accountant Relationship Specialty Start Date End Date Yaya Villatoro MD [address] [place] [phone] PCP - General Internal Medicine 05/04/23 Joseph Mnazanares MD [address] [place] [address] Internal Medicine 04/21/23 documented as of this encounter
--- OUTSIDE RECORDS SUMMARY | 2024-07-26 08:27 | XMS_ITS | Encounter Summary ---
Author Organization [facility] Health Address [address] [facility] [place] [address] Care Team Providers Care Plant Electrical Engineer Name Role Phone Joseph Manzanares MD Unavailable Yaya Villatoro MD Primary Care Provider +1- [phone] Encounter Details Date Type Department Care Team (Late st Contact Info) Description 10/27/2023 Orders Only [facility] - Endocrinology [address] [place] [address], [place] [phone] Yosi Bustamante MD [address] [place] [address] [place] [address] Thyroid cancer (HCC) ; Postoperative hypothyroidism; Malignant [...] Date Recorded PHQ2 TOTAL SCORE 1 11/25/2022 [facility] of Occupat ional Health - [...] st Contact Info) Description 08/02/2024 2:20 PM TUNNEL KILN REPAIRER Appointment [facility] [address] [place] [address] 08/02/2024 3:00 PM TUNNEL KILN REPAIRER Office Visit [facility] - Hematology/Oncology [address] [place] [phone] Remi Beckett MD [address] [place] [phone] 08/18/2024 1:45 PM TUNNEL KILN REPAIRER Office Visit [facility] - ENT [address] [place] [phone] Neri Delgado MD [address] [place] [address] 08/30/2024 2:20 PM TUNNEL KILN REPAIRER Appointment [facility] [address] [place] [phone] documented as of this encounter Visit Diagnoses Diagnosis Thyroid cancer (HCC)- Primary Malignant neoplasm of thyroid gland Postoperative hypothyroidism Postsurgical hypothyroidism Malignant tumor of thyroid gland (HCC) Malignant neoplasm of thyroid gland Cancer, metastatic to bone (HCC) Secondary malignant neoplasm of bone and bone marrow documented in this encounter Care Teams Plant Electrical Engineer Relationship Specialty Start Date End Date Yaya Villatoro MD [address] [place] [phone] PCP - General Internal Medicine 10/31/23 Joseph Manzanares MD [address] [place] [address] Internal Medicine 04/21/23 documented as of this encounter
--- OUTSIDE RECORDS SUMMARY | 2024-07-26 08:27 | XMS_ITS | Encounter Summary ---
Author Organization [facility] Health Address [address] [facility] [place] [address] Care Team Providers Care Camouflage Specialist Name Role Phone Joseph Manzanares MD Unavailable Yaya Villatoro MD Primary Care Provider +1- [phone] Encounter Details Date Type Department Care Team [...] Description 08/02/2024 2:20 PM MILK TREATER Appointment [facility] [address] [place] [address] 08/02/2024 3:00 PM MILK TREATER Office Visit [facility] - Hematology/Oncology [address] [place] [phone] Remi Beckett MD [address] [place] [phone] 08/18/2024 1:45 PM MILK TREATER Office Visit [facility] - ENT [address] [place] [phone] Neri Delgado MD [address] [place] [address] 08/30/2024 2:20 PM MILK TREATER Appointment [facility] [address] [place] [address] documented as of this encounter Visit Diagnoses Not on filedocumented in this encounter Care Teams Camouflage Specialist Relationship Specialty Start Date End Date Yaya Villatoro MD [address] [place] [phone] PCP - General Internal Medicine 05/04/23 Joseph Manzanares MD [address] [place] [phone] Internal Medicine 04/21/23 documented as of this encounter
--- OUTSIDE RECORDS SUMMARY | 2024-07-26 08:27 | XMS_ITS | Encounter Summary ---
Author Organization [facility] Address [address] [facility] [place] [address] Care Team Providers Care Pipelaying Fitter Name Role Phone Joseph Manzanares MD Unavailable Yaya Villatoro MD Primary Care Provider +1- [phone] Reason for Referral * Radiology Services (Routine) - Closed Specialty Diagnoses / Procedures Referred By Yuan robins Referred To Contact MRI Diagnoses Cervical spine tumor Cancer, metastatic to bone (HCC) Papillary carcinoma of thyroid (HCC) Procedures MRI CERVICAL SPINE WWO CONT Marcio Mcintosh MD [address] [place] [address] [facility] [address] [place] [phone] Referral ID Status Reason Start Date Expiration Date Visits Re quested Visits Authorized [id number] Closed 11/23/2023 02/21/2024 1 1 Encounter Details Date Type Department Care Team (Late st Contact Info) Description 10/28/2023 Orders Only [facility] RAD ONC [address] [place] [address] Marcio Mcintosh MD [address] [place] [address] Cervical spine tumor ; Cancer, [...] st Contact Info) Description 08/02/2024 2:20 PM GRINDING WHEEL FACER Appointment [facility] [address] [place] [address] 08/02/2024 3:00 PM GRINDING WHEEL FACER Office Visit [facility] - Hematology/Oncology [address] [place] [phone] Remi Beckett MD [address] [place] [phone] 08/18/2024 1:45 PM GRINDING WHEEL FACER Office Visit [facility] - ENT [address] [place] [phone] Neri Delgado MD [address] [place] [address] 08/30/2024 2:20 PM GRINDING WHEEL FACER Appointment [facility] [address] [place] [address] documented as of this encounter Results * [...] recommended. Report dictated by Kendall Quiroz MD (residential designer). I, Toñito Lucia MD have personally reviewed [...] recommended. Report dictated by Kendall Quiroz MD (residential designer). I, Toñito Lucia MD have personally reviewed [...] gland documented in this encounter Care Teams Pipelaying Fitter Relationship Specialty Start Date End Date Yaya Villatoro MD [address] [phone] PCP - General Internal Medicine 05/04/23 Joseph Manzanares MD [address] [place] [phone] Internal Medicine 04/21/23 documented as of this encounter
--- OUTSIDE RECORDS SUMMARY | 2024-07-26 08:27 | XMS_ITS | Encounter Summary ---
Author Organization [facility] Health Address [address] [facility] [place] [address] Care Team Providers Care Interior Design Project Manager Name Role Phone Joseph Manzanares MD Unavailable Yaya Villatoro MD Primary Care Provider +1- [phone] Encounter Details Date Type Department Care Team (Latest Contact Info) Description 10/19/2023 11:00 AM CDT - 10/19/2023 11:59 PM CDT Hospital Encounter [facility] [address] [place] [address] Marcio Mcintosh MD [address] [place], [place] [phone] Discharge Disposition: Home or Self Care Social [...] naloxone HCl (Narcan) 4 MG/0.1ML nasal spray [place] 1 (one) spray into the nose as [...] dose 1 mL 06/14/2023 10/25/2023 HYDROcodone-acetamino phen ([place]) 5-325 MG tabletIndications:Cer vical spine tumor,Cancer, metastatic [...] st Contact Info) Description 08/02/2024 2:20 PM OCCUPATIONAL THERAPY INSTRUCTOR Appointment [facility] [address] [place] [address] 08/02/2024 3:00 PM OCCUPATIONAL THERAPY INSTRUCTOR Office Visit [facility] - Hematology/Oncology [address] [place] [phone] Remi Beckett MD [address] [place] [phone] 08/18/2024 1:45 PM OCCUPATIONAL THERAPY INSTRUCTOR Office Visit [facility] - ENT [address] [place] [phone] Neri Delgado MD [facility]5 [place] [address] 08/30/2024 2:20 PM OCCUPATIONAL THERAPY INSTRUCTOR Appointment [facility] [address] [place] [address] documented as of this encounter Visit Diagnoses Not on filedocumented in this encounter Care Teams Interior Design Project Manager Relationship Specialty Start Date End Date Yaya Villatoro MD [address] [place] [phone] PCP - General Internal Medicine 05/04/23 Joseph Manzanares MD [address] [place] [phone] Internal Medicine 04/21/23 documented as of this encounter
--- OUTSIDE RECORDS SUMMARY | 2024-07-26 08:27 | XMS_ITS | Encounter Summary ---
Author Organization [facility] Health Address [address] [facility] [place] [address] Care Team Providers Care Petroleum Products District Supervisor Name Role Phone Joseph Manzanares MD Unavailable Yaya Villatoro MD Primary Care Provider +1- [phone] Encounter Details Date Type Department Care Team (Latest Contact Info) Description 10/18/2023 1:02 PM CDT - 10/18/2023 11:59 PM CDT Hospital Encounter [facility] [address] [place], [place] [phone] Marcio Mcintosh MD [address] [place], [place] [phone] Discharge Disposition: Home or Self Care Social [...] Body Mass Index 25.9 08/06/2023 2:26 PM SIDING STAPLER documented in this encounter Functional Status Functional [...] naloxone HCl (Narcan) 4 MG/0.1ML nasal spray [place] 1 (one) spray into the nose as [...] dose 1 mL 06/14/2023 10/25/2023 HYDROcodone-acetamino phen ([place]) 5-325 MG tabletIndications:Cer vical spine tumor,Cancer, metastatic [...] Treatment Patient Visit Department of Radiation Oncology [facility] ENCOUNTER DATE: 10/18/2023 PATIENT IDENTIFICATION Brisa [...] Eye: Ears: Salivary Glands: Salivary Glands: 0-no global director air and climate change baseline Pharynx and Esophagus: Pharynx and Esophagus: 0-No global director air and climate change baseline Larynx: Larynx: 0-No change in baseline Upper GI: Upper GI: 0-no global director air and climate change baseline Lower GI including pelvis: Lower GI including pelvis: 0-No global director air and climate change baseline Lungs: Lungs: 0-No global director air and climate change baseline Other: MEDICATIONS: Current Outpatient Medications: ??? [...] Disp: 90 capsule, Rfl: 5 ??? HYDROcodone-acetaminophen ([place]) 5-325 MG tablet, Take 1 (one) tablet [...] naloxone HCl ([place]arc[place]) 4 MG/0.1ML nasal spray, [place] 1 (one) spray into the nose as [...] not currently available Recent Labs Component Name 04/05/23 0012 WBC 8.1 Recent Labs Component Name [...] st Contact Info) Description 08/02/2024 2:20 PM SIDING STAPLER Appointment [facility] [address] [place] [address] 08/02/2024 3:00 PM SIDING STAPLER Office Visit [facility] - Hematology/Oncology [address] [place] [phone] Remi Beckett MD [address] [place] [phone] 08/18/2024 1:45 PM SIDING STAPLER Office Visit [facility] - ENT [address] [place] [phone] Neri Delgado MD [address] [place] [address] 08/30/2024 2:20 PM SIDING STAPLER Appointment [facility] [address] [place] [address] documented as of this encounter Visit Diagnoses Diagnosis Cancer, metastatic to bone (HCC)- Primary Secondary malignant neoplasm of bone and bone marrow documented in this encounter Care Teams Petroleum Products District Supervisor Relationship Specialty Start Date End Date Yaya Villatoro MD [facility] [address] [phone] PCP - General Internal Medicine 05/04/23 Joseph Manzanares MD [address] [place] [phone] Internal Medicine 04/21/23 documented as of this encounter
--- OUTSIDE RECORDS SUMMARY | 2024-07-26 08:27 | XMS_ITS | Encounter Summary ---
Author Organization [facility] Health Address [address] [facility] [place] [address] Care Team Providers Care Pro Shop Attendant Name Role Phone Joseph Manzanares MD Unavailable Yaya Villatoro MD Primary Care Provider +1- [phone] Encounter Details Date Type Department Care Team (Late st Contact Info) Description 10/28/2023 Orders Only [facility] [address] [place], [place] [phone] Marcio Mcintosh MD [address] [place], [place] [phone] Social History Tobacco Use Types Packs/Day Years [...] st Contact Info) Description 08/02/2024 2:20 PM BUCKLE WIRE INSERTER Appointment [facility] [address] [place] [address] 08/02/2024 3:00 PM BUCKLE WIRE INSERTER Office Visit [facility] Group - Hematology/Oncology [address] [place] [phone] Remi Beckett MD [address] [place] [phone] 08/18/2024 1:45 PM BUCKLE WIRE INSERTER [facility] [address] [place] [phone] Neri Delgado MD [address] [place] [address] 08/30/2024 2:20 PM BUCKLE WIRE INSERTER Appointment [facility] [address] [place] [address] documented as of this encounter Visit Diagnoses Not on filedocumented in this encounter Care Teams Pro Shop Attendant Relationship Specialty Start Date End Date Yaya Villatoro MD [address] [place] [phone] PCP - General Internal Medicine 05/04/23 Joseph Manzanares MD [address] [place] [phone] Internal Medicine 04/21/23 documented as of this encounter
--- OUTSIDE RECORDS SUMMARY | 2024-07-26 08:27 | XMS_ITS | Encounter Summary ---
Author Organization [facility] Health Address [address] [place] [address] Care Team Providers Care Dough Molder Hand Name Role Phone Joseph Manzanares MD Unavailable Yaya Villatoro MD Primary Care Provider +1- [phone] Encounter Details Date Type Department Care Team (Late st Contact Info) Description 10/21/2023 Orders Only [facility] - Hematology/Oncology [address] [place] [phone] Amadeo Robles MD [address] [facility] [place] [phone] Social History Tobacco Use Types Packs/Day Years [...] st Contact Info) Description 08/02/2024 2:20 PM HVAC DESIGN MECHANICAL ENGINEER Appointment [facility] [place] [address] 08/02/2024 3:00 PM HVAC DESIGN MECHANICAL ENGINEER Office Visit [facility] Group - Hematology/Oncology [address] [place] [phone] Remi Beckett MD [address] [place] [phone] 08/18/2024 1:45 PM HVAC DESIGN MECHANICAL ENGINEER Office Visit [facility] - ENT [address] [place] [phone] Neri Delgado MD [address] [place] [address] 08/30/2024 2:20 PM HVAC DESIGN MECHANICAL ENGINEER Appointment [facility] [address] [place] [address] documented as of this encounter Visit Diagnoses Not on filedocumented in this encounter Care Teams Dough Molder Hand Relationship Specialty Start Date End Date Yaya Villatoro MD [address] [phone] PCP - General Internal Medicine 05/04/23 Joseph Manzanares MD [address] [place] [phone] Internal Medicine 04/21/23 documented as of this encounter
--- OUTSIDE RECORDS SUMMARY | 2024-07-26 08:27 | XMS_ITS | Encounter Summary ---
Author Organization [facility] Health Address [address] [facility] [place] [address] Care Team Providers Care Open End Spinning Operator Name Role Phone Joseph Manzanares MD Unavailable Yaya Villatoro MD Primary Care Provider +1- [phone] Reason for Visit * Reason Onset Date Comments Appointment 10/15/2023 Spoke with pt. r egarding an appt. on Wednesday10-19-2023 @ 10:[address] Herman Encounter Details Date Type Department Care Team (Late st Contact Info) Description 10/15/2023 Telephone [facility] - Hematology/Oncology [address] [place] [address] Blaine Herman MD [address] [place] [address] Appointment (Spoke with pt. regarding [...] st Contact Info) Description 08/02/2024 2:20 PM GRAND SCRIBE Appointment [facility] [address] [place] [address] 08/02/2024 3:00 PM GRAND SCRIBE Office Visit [facility] - Hematology/Oncology [address] [place] [phone] Remi Beckett MD [address] [place] [phone] 08/18/2024 1:45 PM GRAND SCRIBE Office Visit [facility] - ENT [address] [place] [phone] Neri Delgado MD [address] [place] [address] 08/30/2024 2:20 PM GRAND SCRIBE Appointment [facility] [address] [place] [address] documented as of this encounter Visit Diagnoses Not on filedocumented in this encounter Care Teams Open End Spinning Operator Relationship Specialty Start Date End Date Yaya Villatoro MD [address] [facility] [address] [place] [phone] PCP - General Internal Medicine 05/04/23 Joseph Manzanares MD [address] [place] [phone] Internal Medicine 04/21/23 documented as of this encounter
--- OUTSIDE RECORDS SUMMARY | 2024-07-26 08:27 | XMS_ITS | Encounter Summary ---
Author Organization [facility] Health Address [address] [facility] [place] [address] Care Team Providers Care Funeral Service Manager Name Role Phone Joseph Manzanares MD Unavailable Yaya Villatoro MD Primary Care Provider +1- [phone] Encounter Details Date Type Department Care Team (Latest Contact Info) Description 10/22/2023 10:57 AM CDT - 10/22/2023 11:59 PM CDT Hospital Encounter [facility] [address] [place], [place] [phone] Marcio Mcintosh MD [address] [place], [place] [phone] Discharge Disposition: Home or Self Care Social [...] Date Recorded PHQ2 TOTAL SCORE 1 11/25/2022 [facility] - Occupational [...] naloxone HCl (Narcan) 4 MG/0.1ML nasal spray [place] 1 (one) spray into the nose as [...] dose 1 mL 06/14/2023 10/25/2023 HYDROcodone-acetamino phen (Fritch) 5-325 MG tabletIndications:Cer vical spine tumor,Cancer, metastatic [...] st Contact Info) Description 08/02/2024 2:20 PM CLINICAL OB Appointment [facility] [address] [place] [address] 08/02/2024 3:00 PM CLINICAL OB Office Visit [facility] - Hematology/Oncology [address] [place] [address] Remi Beckett MD [address] [place] [phone] 08/18/2024 1:45 PM CLINICAL OB Office Visit [facility] - ENT [address] [place] [address] Neri Delgado MD [facility]5 [place] [address] 08/30/2024 2:20 PM CLINICAL OB Appointment [facility] [address] [place] [address] documented as of this encounter Visit Diagnoses Not on filedocumented in this encounter Care Teams Funeral Service Manager Relationship Specialty Start Date End Date Yaya Villatoro MD [address] [place] [phone] PCP - General Internal Medicine 05/04/23 Joseph Manzanares MD [address] [place] [phone] Internal Medicine 04/21/23 documented as of this encounter
--- OUTSIDE RECORDS SUMMARY | 2024-07-26 08:27 | XMS_ITS | Encounter Summary ---
Author Organization [facility] Health Address [address] [place] [address] Care Team Providers Care Pan Operator Name Role Phone Joseph Manzanares MD Unavailable Yaya Villatoro MD Primary Care Provider +1- [phone] Encounter Details Date Type Department Care Team [...] st Contact Info) Description 08/02/2024 2:20 PM MOLD FORMS BUILDER Appointment [facility] [address] [place] [address] 08/02/2024 3:00 PM MOLD FORMS BUILDER Office Visit [facility] - Hematology/Oncology [address] [place] [phone] Remi Beckett MD [address] [place] [phone] 08/18/2024 1:45 PM MOLD FORMS BUILDER Office Visit [facility] - ENT [address] [place] [phone] Neri Delgado MD [address] [place] [address] 08/30/2024 2:20 PM MOLD FORMS BUILDER Appointment [facility] [address] [place] [address] documented as of this encounter Visit Diagnoses Not on filedocumented in this encounter Care Teams Pan Operator Relationship Specialty Start Date End Date Yaya Villatoro MD [address] [place] [phone] PCP - General Internal Medicine 05/04/23 Joseph Manzanares MD [address] [place] [phone] Internal Medicine 04/21/23 documented as of this encounter
--- OUTSIDE RECORDS SUMMARY | 2024-07-26 08:27 | XMS_ITS | Encounter Summary ---
Author Organization [facility] Health Address [address] [place] [address] Care Team Providers Care Oil Pipeline Dispatcher Name Role Phone Joseph Manzanares MD Unavailable Yaya Villatoro MD Primary Care Provider +1- [phone] Reason for Visit * Reason Onset Date Comments Appointment 10/14/2023 Encounter Details Date Type Department Care Team (Late st Contact Info) Description 10/14/2023 Telephone [facility] - Hematology/Oncology [address] [place] [address] Mackenzie Alcala, RN Appointment Social [...] Miscellaneous Notes * Telephone Encounter - Mackenzie Alcala, RN - 10/14/2023 1:47 PM CDT Spoke [...] st Contact Info) Description 08/02/2024 2:20 PM INDUSTRIAL TRACTOR DRIVER Appointment [facility] [address] [place] [address] 08/02/2024 3:00 PM INDUSTRIAL TRACTOR DRIVER Office Visit [facility] - Hematology/Oncology [address] [place] [phone] Remi Beckett MD [address] [place] [phone] 08/18/2024 1:45 PM INDUSTRIAL TRACTOR DRIVER Office Visit [facility] - ENT [address] [place] [phone] Neri Delgado MD [address] [place] [address] 08/30/2024 2:20 PM INDUSTRIAL TRACTOR DRIVER Appointment [facility] [address] [place] [address] documented as of this encounter Visit Diagnoses Not on filedocumented in this encounter Care Teams Oil Pipeline Dispatcher Relationship Specialty Start Date End Date Yaya Villatoro MD [address] [facility] [address] [place] [phone] PCP - General Internal Medicine 05/04/23 Joseph Manzanares MD [address] [place] [phone] Internal Medicine 04/21/23 documented as of this encounter
--- OUTSIDE RECORDS SUMMARY | 2024-07-26 08:28 | XMS_ITS | Encounter Summary ---
Author Organization [facility] Health Address [address] [facility] [place] [address] Care Team Providers Care Meter Mechanic Name Role Phone Joseph Manzanares MD Unavailable Yaya Villatoro MD Primary Care Provider +1- [phone] Encounter Details Date Type Department Care Team (Late st Contact Info) Description 06/02/2023 Orders Only [facility] - Orthopedic Surgery [address] [place] [phone] Cesar Brooks MD 1031 [facility] [address] [place], [place] [phone] Left hip pain Social History Tobacco Use [...] Contact Info) Description 08/02/2024 2:20 PM ANIMAL COP Appointment [facility]5 [place] [address] 08/02/2024 3:00 PM ANIMAL COP Office Visit [facility] - Hematology/Oncology [address] [place] [phone] Remi Beckett MD [address] [place] [phone] 08/18/2024 1:45 PM ANIMAL COP Office Visit [facility] - ENT [address] [place] [phone] Neri Delgado MD [address] [place] [address] 08/30/2024 2:20 PM ANIMAL COP Appointment [facility] [address] [place] [address] Scheduled Orders Name Type Priority Associated Diagnoses Orde r Schedule XR PELVIS W LEFT HIP 2VW Imaging Routine Left hip pain 1 Occurrences starting 06/02/2023 until 06/02/2024 documented as of this encounter Visit Diagnoses Diagnosis Left hip pain- Primary Pain in joint, pelvic region and thigh documented in this encounter Care Teams Meter Mechanic Relationship Specialty Start Date End Date Yaya Villatoro MD [facility] [address] [phone] PCP - General Internal Medicine 05/04/23 Joseph Manzanares MD [address] [place] [address] Internal Medicine 04/21/23 documented as of this encounter
--- OUTSIDE RECORDS SUMMARY | 2024-07-26 08:28 | XMS_ITS | Encounter Summary ---
Author Organization [facility] Address [address] [facility] [place] [address] Care Team Providers Care Lead Ramp Agent Name Role Phone Joseph Manzanares MD Unavailable Yaya Villatoro MD Primary Care Provider +1- [phone] Reason for Visit * Reason Comments Thyroid Cancer Thyroid Problem Hypothyroidism S/p t hyroidectomy * Consult, Test & Treat (Routine) - Closed Specialty Diagnoses / Procedures Referred By Contricardo t Referred To Contact Endocrinology Diagnoses Postprocedural hypothyroidism Procedures [place] UNLISTED E/M SERVICE Yaya Villatoro MD 1031 [facility] 300 [place] [address] Yosi Bustamante MD [address] [place] [address] [address] [place] [address] Referral ID Status Reason Start Date Expiration Date Visits Re quested Visits Authorized [id number] Closed 05/05/2023 11/03/2023 1 1 Encounter Details Date Type Department Care Team (Latest Contact Info) Description 06/14/2023 10:00 AM DYE LINE OPERATOR Office Visit [facility] - Endocrinology [address] [place] [address], [place] [phone] Yosi Bustamante MD [address] [place] [address] [address] [place] [address] Postoperative hypothyroidism (Primary Dx); Thyroid cancer (HCC); [...] Comments Blood Pressure 126/84 06/14/2023 10:10 AM DYE LINE OPERATOR Pulse 85 06/14/2023 10:10 AM DYE LINE OPERATOR Temperature - - Respiratory Rate 17 06/14/2023 10:10 AM DYE LINE OPERATOR Oxygen Saturation 97% 06/14/2023 10:10 AM DYE LINE OPERATOR Inhaled Oxygen Concentration - - Weight 65.8 kg (145 lb) 06/14/2023 10:10 AM DYE LINE OPERATOR Height 157.5 cm (5' 2) 06/14/2023 10:10 AM DYE LINE OPERATOR Body Mass Index 26.52 06/14/2023 10:10 AM DYE LINE OPERATOR documented in this encounter Functional Status [...] Yosi Bustamante MD - 06/13/2023 8:26 AM DYE LINE OPERATOR BP 126/84 (BP SITE: RIGHT ARM, BP POSITION: SITTING, BP Cuff Size: A) Pulse 85 Resp 17 Ht 1.575 m (5' 2) Wt 65.8 kg (145 lb) SpO2 97% How to Contact Us Between Office Visits Please make your follow up appointment before you leave the office today. If you are unable to makethe appointment today, please contact us at [phone]. To make an appointment: Please call us at [phone], option 1. To requesting refills or leaving a message for your doctor, Please call [phone], option 2. This is the option to speak to a nurse if they are available. We request that all prescription refills be requested during regular office phone hours. Phone lines are open from 8:00 am to 4:30 pm Wednesday through Wednesday. Our fax number is [phone]. After hours urgent calls that cannot wait untill phone lines are open on the next business day are given to the Endocrine physician electronics utility worker. Please call [phone] and identify yourself as a patient in our practice with your doctor's name. The channel process plant operator will contact the physician electronics utility worker. You can g enerally expect a return call within 30 minutes. On weekends, physicians are seeing hospitalized patients and there may be a longer wait. Test and laboratory results: Our practice typically reports lab and test results through letters orMYChart, the [employer] online patient portal. Please allow 5 days from when your tests are completed to receive the results. Visit our website at [email or web address] for additional information about [employer] and an interactive health encyclopedia. PLAN CONTINUE [...] TO PHARMACY TO SEE IF PA NEEDED LINE OPERATOR documented in this encounter Progress Notes [...] 0.9 IU/mL <1.0 <1.0 <1.0 <1.0 <1.0 [facility] Reference Range & Units 03/07/20 15:19 [...] DATE/TIME OF EXAM: 08/19/2022 3:24 PM, LOCATION [facility] INDICATION: E89.0: Postoperative hypothyroidism C73: Thyroid [...] Stress: No Stress Concern Present (10/02/2022) ? [facility] - Occupational Stress Questionnaire [...] naloxone HCl (Narcan) 4 MG/0.1ML nasal spray, [place] 1 (one) spray into the nose as [...] Division of Endocrinology Department of Internal Medicine LINE OPERATOR documented in this encounter Plan of Treatment Upcoming Encounters Date Type Department Care Team (Late st Contact Info) Description 08/02/2024 2:20 PM DYE LINE OPERATOR Appointment [facility] [address] [place] [address] 08/02/2024 3:00 PM DYE LINE OPERATOR Office Visit [facility] - Hematology/Oncology [address] [place] [phone] Remi Beckett MD [address] [place] [phone] 08/18/2024 1:45 PM DYE LINE OPERATOR Office Visit [facility] - ENT [address] [place] [phone] Neri Delgado MD [address] [place] [address] 08/30/2024 2:20 PM DYE LINE OPERATOR Appointment [facility] [address] [place] [address] documented as of this encounter Visit Diagnoses Diagnosis Postoperative hypothyroidism- Primary Postsurgical hypothyroidism Thyroid cancer (HCC) Malignant neoplasm of thyroid gland Hypocalcemia Other hypoparathyroidism (HCC) documented in this encounter Care Teams Lead Ramp Agent Relationship Specialty Start Date End Date Yaya Villatoro MD [address] [place] [phone] PCP - General Internal Medicine 05/04/23 Joseph Manzanares MD [address] [place] [phone] Internal Medicine 04/21/23 documented as of this encounter
--- OUTSIDE RECORDS SUMMARY | 2024-07-26 08:28 | XMS_ITS | Encounter Summary ---
Author Organization [facility] Health Address [address] [facility] [place] [address] Care Team Providers Care Automat Watcher Name Role Phone Joseph Manzanares MD Unavailable Yaya Villatoro MD Primary Care Provider [phone]- [phone] Encounter Details Date Type Department Care Team (Late st Contact Info) Description 06/08/2023 Telephone [facility] - Endocrinology [address] [place] [address], [place] [phone] Yosi Bustamante MD [address] [place] [address] of [place], [place] [phone] Social History Tobacco Use Types Packs/Day Years [...] TOTAL SCORE 1 11/25/2022 [facility] of Occupat ional Health - [...] Jaquelin Izquierdo LPN - 06/08/2023 10:30 AM UNITIZER Patient called regarding lab orders being placed. Patient stated she will have them done before herappointment IZER * Telephone Encounter - June Denise - [...] is 06/14/23. Thanks. Patient Call Back number: [phone] IZER documented in this encounter Plan of Treatment Upcoming Encounters Date Type Department Care Team (Late st Contact Info) Description 08/02/2024 2:20 PM UNITIZER Appointment [facility] [address] [place] [address] 08/02/2024 3:00 PM UNITIZER Office Visit [facility] - Hematology/Oncology [address] [place] [phone] Remi Beckett MD [address] [place] [address] 08/18/2024 1:45 PM UNITIZER Office Visit [facility] - ENT [address] [place] [address] Neri Delgado MD [facility]5 [place] [address] 08/30/2024 2:20 PM UNITIZER Appointment [facility] [address] [place] [address] documented as of this encounter Visit Diagnoses Not on filedocumented in this encounter Care Teams Automat Watcher Relationship Specialty Start Date End Date Yaya Villatoro MD 1031 [facility] 300 [place] [phone] PCP - General Internal Medicine 05/04/23 Joseph Manzanares MD [address] [place] [phone] Internal Medicine 04/21/23 documented as of this encounter
--- OUTSIDE RECORDS SUMMARY | 2024-07-26 08:28 | XMS_ITS | Encounter Summary ---
Author Organization [facility] Health Address [address] [facility] [place] [address] Care Team Providers Care Head Sugar Reprocess Operator Name Role Phone Joseph Manzanares MD Unavailable Yaya Villatoro MD Primary Care Provider +1- [phone] Reason for Visit * Reason Comments Med Change Request Encounter Details Date Type Department Care Team (Late Contact Info) Description 05/31/2023 Refill [facility] - Internal Med [address] [facility], [place] [address] Tiana Naylor, DO [address] [facility] [place], [place] [phone] Med Change Request Social History Tobacco Use [...] Mady Jalloh RN - 05/31/2023 2:45 PM HIGH LIFT OPERATOR Refill Request ELE:11/25/2022 NOV scheduled: 06/09/2023 LRF: 02/22/2023 Qty Disp: 48g # of refills: 0 Allergies: Allergies Allergen Reactions ??? Kiwi Extract Anaphylaxis Pended Medication Order: Requested Prescriptions Pending Prescriptions Disp Refills ??? fluticasone propionate (Flonase) 50 MCG/ACT nasal spray [Pharmacy Med Name: FLUTICASONE PROP 50MCG SPRAY] 1 Sig: SPRAY 2 SPRAYS INTO EACH NOSTRIL EVERY DAY LIFT OPERATOR documented in this encounter Plan of Treatment Upcoming Encounters Date Type Department Care Team (Late st Contact Info) Description 08/02/2024 2:20 PM HIGH LIFT OPERATOR Appointment [facility] [address] [place] [address] 08/02/2024 3:00 PM HIGH LIFT OPERATOR Office Visit [facility] - Hematology/Oncology [address] [place] [phone] Remi Beckett MD [address] [place] [phone] 08/18/2024 1:45 PM HIGH LIFT OPERATOR Office Visit [facility] - ENT [address] [place] [phone] Neri Delgado MD [address] [place] [address] 08/30/2024 2:20 PM HIGH LIFT OPERATOR Appointment [facility] [address] [place] [address] documented as of this encounter Visit Diagnoses Diagnosis Allergic rhinitis, unspecified seasonality, unspecified trigger documented in this encounter Care Teams Head Sugar Reprocess Operator Relationship Specialty Start Date End Date Yaya Villatoro MD [address] [phone] PCP - General Internal Medicine 05/04/23 Joseph Manzanares MD [address] [place] [phone] Internal Medicine 04/21/23 documented as of this encounter
--- OUTSIDE RECORDS SUMMARY | 2024-07-26 08:28 | XMS_ITS | Encounter Summary ---
Author Organization [facility] Health Address [address] [facility] [place] [address] Care Team Providers Care Life Skills Coordinator Name Role Phone Joseph Manzanares MD Unavailable Yaya Villatoro MD Primary Care Provider +1- [phone] Encounter Details Date Type Department Care Team [...] Date Recorded PHQ2 TOTAL SCORE 1 11/25/2022 [facility] of Occupat ional Health - [...] st Contact Info) Description 08/02/2024 2:20 PM TRACTOR DRIVER TEAMSTER Appointment [facility] [address] [place] [address] 08/02/2024 3:00 PM TRACTOR DRIVER TEAMSTER Office Visit [facility] - Hematology/Oncology [address] [place] [phone] Remi Beckett MD [address] [place] [phone] 08/18/2024 1:45 PM TRACTOR DRIVER TEAMSTER Office Visit [facility] - ENT [address] [place] [phone] Neri Delgado MD [address] [place] [address] 08/30/2024 2:20 PM TRACTOR DRIVER TEAMSTER Appointment [facility] [address] [place] [address] documented as of this encounter Visit Diagnoses Not on filedocumented in this encounter Care Teams Life Skills Coordinator Relationship Specialty Start Date End Date Yaya Villatoro MD [address] [place] [phone] PCP - General Internal Medicine 05/04/23 Joseph Manzanares MD [address] [place] [phone] Internal Medicine 04/21/23 documented as of this encounter
--- OUTSIDE RECORDS SUMMARY | 2024-07-26 08:28 | XMS_ITS | Encounter Summary ---
Author Organization [facility] Health Address [address] [facility] [place] [address] Care Team Providers Care Administrative Medical Director Name Role Phone Joseph Manzanares MD Primary Care Provider [phone] Tiana Naylor DO Unavailable [phone] Encounter Details Date Type Department Care [...] st Contact Info) Description 08/02/2024 2:20 PM CONVERTING TECHNICIAN Appointment [facility] [address] [place] [address] 08/02/2024 3:00 PM CONVERTING TECHNICIAN Office Visit [facility] - Hematology/Oncology [address] [place] [phone] Remi Beckett MD [address] [place] [phone] 08/18/2024 1:45 PM CONVERTING TECHNICIAN Office Visit [facility] - ENT [address] [place] [phone] Neri Delgado MD [address] [place] [address] 08/30/2024 2:20 PM CONVERTING TECHNICIAN Appointment [facility] [address] [place] [address] documented as of this encounter Visit Diagnoses Not on filedocumented in this encounter Care Teams Administrative Medical Director Relationship Specialty Start Date End Date Joseph Manzanares MD [address] [place] [phone] PCP - General Internal Medicine 10/07/22 04/20/23 Tiana Naylor DO [address] [facility] [place] [place] [address] Resident - PCP Internal Medicine 01/13/23 04/20/23 documented as of this encounter
--- OUTSIDE RECORDS SUMMARY | 2024-07-26 08:28 | XMS_ITS | Encounter Summary ---
Author Organization [facility] Health Address [address] [facility] [place] [address] Care Team Providers Care Tire Balancer Name Role Phone Joseph Manzanares MD Primary Care Provider [phone] Tiana Naylor DO Unavailable [phone] Reason for Referral * Radiology Services (Routine) - Closed Specialty Diagnoses / Procedures Referred By Yuan robins Referred To Contact MRI Diagnoses Cancer, metastatic to bone (HCC) Cervical spine tumor Procedures MRI CERVICAL SPINE WWO CONT Marcio Mcintosh MD [address] [place] [address] [facility] Mri [address] [place] [phone] Referral ID Status Reason Start Date Expiration Date Visits Re quested Visits Authorized [id number] Closed 10/01/2023 12/30/2023 1 1 Encounter Details Date Type Department Care Team (Latest Contact Info) Description 03/25/2023 1:00 PM CDT - 03/25/2023 11:59 PM CDT Hospital Encounter [facility] RAD ON[facility] [place] [address] Marcio Mcintosh MD [address] [place] [address] Discharge Disposition: Home or Self [...] naloxone HCl (Narcan) 4 MG/0.1ML nasal spray Fowler 1 (one) spray into the nose as [...] A DAY 60 capsule 11 02/22/2022 05/28/2023 [id number]-VGBRXWKHL-UFBL PO Take by mouth once daily 06/13/2023 [...] NOSTRIL EVERY DAY 48 g 02/22/2023 06/01/2023 FWXDNG-ASNABIBYF-UZU-C-H YAL PO Take 1 tablet by mouth [...] Return Patient Visit Department of Radiation Oncology [facility] ENCOUNTER DATE: 03/25/2023 PATIENT IDENTIFICATION Brisa Hogan 1960 Autopopulated Data Chief Complaint: No chief complaint on file. Diagnosis: 1. 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 Since our last visit, Brsia has felt no changes but regular sore [...] Membrances: Mucous Membranes: Dry Eye: Eyes: 0-No chart changer baseline (blurry vision - will find an eye doctor) Ears: Salivary Glands: Salivary Glands: 0-no chart changer baseline Pharynx and Esophagus: Pharynx and Esophagus: 0-No chart changer baseline Larynx: Larynx: 0-No change in baseline Upper GI: Upper GI: 0-no chart changer baseline Lower GI including pelvis: Lower GI including pelvis: 0-No chart changer baseline Lungs: Lungs: 0-No chart changer baseline Other: PAST MEDICAL HISTORY Past [...] CAPSULE BY MOUTH TWICE A DAY ??? IWQLTOS-XBTPTUOQK-PNYM PO Take by mouth once daily (Patient [...] capsule by mouth 3 times daily ??? GUNDOM-PCZBXPHWM-DJO-C-HYAL PO Take 1 tablet by mouth 3 [...] naloxone HCl (Narcan) 4 MG/0.1ML nasal spray Fowler 1 (one) spray into the nose as [...] disorder noted, abnormal findings: LUE weakness to protection chief industrial plant and elbow flexion extension. RADIOGRAPHIC IMAGES: No [...] st Contact Info) Description 08/02/2024 2:20 PM POULTRY PROCESSING SUPERVISOR Appointment [facility] [address] [place] [address] 08/02/2024 3:00 PM POULTRY PROCESSING SUPERVISOR Office Visit [facility] - Hematology/Oncology [address] [place] [phone] [place] [address] [place] [phone] 08/18/2024 1:45 PM POULTRY PROCESSING SUPERVISOR Office Visit [facility] - ENT [address] [place] [phone] Neri Delgado MD [address] [place] [address] 08/30/2024 2:20 PM POULTRY PROCESSING SUPERVISOR Appointment [facility] [address] [place] [address] documented as of this encounter Results * [...] DATE/TIME OF EXAM: ??10/01/2023 10:44 AM, LOCATION ??[facility] INDICATION: C79.51: Cancer, metastatic to bone (HCC) [...] DATE/TIME OF EXAM: 10/01/2023 10:44 AM, LOCATION [facility] INDICATION: C79.51: Cancer, metastatic to bone (HCC) [...] tissues are again noted in the left C5-I4kqbjsc foramen extending into the adjacent ventral epidural [...] new enhancing soft tissue in the left C4-D2whloxb foramina. Residual soft tissue enhancing lesions in the left C5-E0ugzlgl foramina, left C6-C7 neural foramina also involving [...] skin documented in this encounter Care Teams Tire Balancer Relationship Specialty Start Date End Date Joseph Manzanares MD [address] [place] [address] PCP - General Internal Medicine 10/07/22 04/20/23 Tiana Naylor DO [address] [place] [address] Resident - PCP Internal Medicine 01/13/23 04/20/23 documented as of this encounter
--- OUTSIDE RECORDS SUMMARY | 2024-07-26 08:28 | XMS_ITS | Encounter Summary ---
Author Organization [facility] Health Address [address] [place] [address] Care Team Providers Care Human Capital Analyst Name Role Phone Joseph Manzanares MD Unavailable Yaya Villatoro MD Primary Care Provider [phone] Reason for Visit * Reason Comments Med Change Request Encounter Details Date Type Department Care Team (Late Contact Info) Description 06/27/2023 Refill [facility] - Internal Med [address] [facility], [place] [phone] Tiana Naylor, DO [address] [place], [place] [id number] Med Change Request Social History Tobacco Use [...] st Contact Info) Description 08/02/2024 2:20 PM BOAT RIGGER Appointment [facility] [address] [place] [address] 08/02/2024 3:00 PM BOAT RIGGER Office Visit [facility] - Hematology/Oncology [address] [place] [phone] Remi Beckett MD [address] [place] [phone] 08/18/2024 1:45 PM BOAT RIGGER Office Visit [facility] - ENT [address] [place] [phone] Neri Delgado MD [address] [place] [address] 08/30/2024 2:20 PM BOAT RIGGER Appointment [facility] [address] [place] [address] documented as of this encounter Visit Diagnoses Diagnosis Allergic rhinitis, unspecified seasonality, unspecified trigger documented in this encounter Care Teams Human Capital Analyst Relationship Specialty Start Date End Date Yaya Villatoro MD [address] [place] [phone] PCP - General Internal Medicine 05/04/23 Joseph Manzanares MD [address] [place] [phone] Internal Medicine 04/21/23 documented as of this encounter
--- OUTSIDE RECORDS SUMMARY | 2024-07-26 08:28 | XMS_ITS | Encounter Summary ---
Author Organization [facility] Health Address [address] [address] [place] [address] Care Team Providers Care Starchmaker Name Role Phone Joseph Manzanares MD Unavailable Yaya Villatoro MD Primary Care Provider [phone] Encounter Details Date Type Department Care Team [...] st Contact Info) Description 08/02/2024 2:20 PM AGENCY CASHIER Appointment [facility] [address] [place] [address] 08/02/2024 3:00 PM AGENCY CASHIER Office Visit [facility] - Hematology/Oncology [address] [place] [phone] Reim Beckett MD [address] [place] [phone] 08/18/2024 1:45 PM AGENCY CASHIER Office Visit [facility] - ENT [address] [place] [phone] Neri Delgado MD [address] [place] [address] 08/30/2024 2:20 PM AGENCY CASHIER Appointment [facility] [address] [place] [address] documented as of this encounter Visit Diagnoses Not on filedocumented in this encounter Care Teams Starchmaker Relationship Specialty Start Date End Date Yaya Villatoro MD [address] [place] [phone] PCP - General Internal Medicine 05/04/23 Joseph Manzanares MD [address] [place] [phone] Internal Medicine 04/21/23 documented as of this encounter
--- OUTSIDE RECORDS SUMMARY | 2024-07-26 08:28 | XMS_ITS | Encounter Summary ---
Author Organization [facility] Health Address [address] [place] [address] Care Team Providers Care Healthcare Translator Name Role Phone Joseph Manzanares MD Unavailable Yaya Villatoro MD Primary Care Provider [phone] Encounter Details Date Type Department Care Team [...] st Contact Info) Description 08/02/2024 2:20 PM COUNTRY SALES MANAGER Appointment [facility] [address] [place] [address] 08/02/2024 3:00 PM COUNTRY SALES MANAGER Office Visit [facility] - Hematology/Oncology [address] [place] [phone] Remi Beckett MD [address] [place] [phone] 08/18/2024 1:45 PM COUNTRY SALES MANAGER Office Visit [facility] - ENT [address] [place] [phone] Neri Delgado MD [address] [place] [address] 08/30/2024 2:20 PM COUNTRY SALES MANAGER Appointment [facility] [address] [place] [address] documented as of this encounter Visit Diagnoses Not on filedocumented in this encounter Care Teams Healthcare Translator Relationship Specialty Start Date End Date Yaya Villatoro MD [address] [place] [phone] PCP - General Internal Medicine 05/04/23 Joseph Manzanares MD [address] [place] [phone] Internal Medicine 04/21/23 documented as of this encounter
--- OUTSIDE RECORDS SUMMARY | 2024-07-26 08:28 | XMS_ITS | Encounter Summary ---
Author Organization [facility] Health Address [address] [facility] [address] Care Team Providers Care Toe Stripper Name Role Phone Joseph Manzanares MD Unavailable Yaya Villatoro MD Primary Care Provider [phone] Reason for Visit * Reason Comments Refill Request Encounter Details Date Type Department Care Team (Late st Contact Info) Description 05/28/2023 Refill [facility] - Endocrinology [address] [place] [address], [place] [address] Yosi Bustamante MD [address] [place] [address] [place] [address] Refill Request Social History Tobacco Use Types [...] Date Recorded PHQ2 TOTAL SCORE 1 11/25/2022 [facility] Occupat ional Health - [...] DAYS STARTING 07-05-22 AND END ON 07-25-22 SPERSON BURIAL NEEDS documented in this encounter Plan of Treatment Upcoming Encounters Date Type Department Care Team (Late st Contact Info) Description 08/02/2024 2:20 PM SALESPERSON BURIAL NEEDS Appointment [facility] [address] [place] [address] 08/02/2024 3:00 PM SALESPERSON BURIAL NEEDS Office Visit [facility] - Hematology/Oncology [address] [place] [phone] Remi Beckett MD [address] [place] [address] 08/18/2024 1:45 PM SALESPERSON BURIAL NEEDS Office Visit [facility] - ENT [address] [place] [phone] Neri Delgado MD [address] [place] [address] 08/30/2024 2:20 PM SALESPERSON BURIAL NEEDS Appointment [facility] [address] [place] [address] documented as of this encounter Visit Diagnoses Diagnosis Postoperative hypothyroidism Postsurgical hypothyroidism Thyroid cancer (HCC) Malignant neoplasm of thyroid gland Hypocalcemia Other hypoparathyroidism (HCC) documented in this encounter Care Teams Toe Stripper Relationship Specialty Start Date End Date Yaya Villatoro MD [address] [place] [phone] PCP - General Internal Medicine 05/04/23 Joseph Manzanares MD [address] [place] [phone] Internal Medicine 04/21/23 documented as of this encounter
--- OUTSIDE RECORDS SUMMARY | 2024-07-26 08:28 | XMS_ITS | Encounter Summary ---
Author Organization [facility] Health Address [address] [place] [address] Care Team Providers Care Chargeback Specialist Name Role Phone ShaistaTiana taylor Primary Care Provider [phone] Joseph Manzanares MD Unavailable Reason for Visit * Reason Comments Refill Request Encounter Details Date Type Department Care Team (Late st Contact Info) Description 04/21/2023 Refill [facility] - Endocrinology [address] [place] [address], [place] [address] Yosi Bustamante MD [address] [place] [address] [place] [address] Refill Request Social History Tobacco Use Types [...] st Contact Info) Description 08/02/2024 2:20 PM SUPERVISOR PUBLIC MESSAGE SERVICE Appointment [facility] [address] [place] [address] 08/02/2024 3:00 PM SUPERVISOR PUBLIC MESSAGE SERVICE Office Visit [facility] - Hematology/Oncology [address] [place] [phone] Remi Beckett MD [address] [place] [phone] 08/18/2024 1:45 PM SUPERVISOR PUBLIC MESSAGE SERVICE Office Visit [facility] - ENT [address] [place] [phone] Neri Delgado MD [address] [place] [address] 08/30/2024 2:20 PM SUPERVISOR PUBLIC MESSAGE SERVICE Appointment [facility] [address] [place] [address] documented as of this encounter Visit Diagnoses Diagnosis Postoperative hypothyroidism Postsurgical hypothyroidism Thyroid cancer (HCC) Malignant neoplasm of thyroid gland Hypocalcemia Other hypoparathyroidism (HCC) documented in this encounter Care Teams Chargeback Specialist Relationship Specialty Start Date End Date Tiana Naylor DO [address] [facility] [place] [address] PCP - General Internal Medicine 04/21/23 05/03/23 Joseph Manzanares MD [address] [place] [phone] Internal Medicine 04/21/23 documented as of this encounter
--- OUTSIDE RECORDS SUMMARY | 2024-07-26 08:28 | XMS_ITS | Encounter Summary ---
Author Organization [facility] Health Address [address] [facility] [place] [address] Care Team Providers Care Distillery Worker Name Role Phone Joseph Manzanares MD Unavailable Yaya Villatoro MD Primary Care Provider [phone] Encounter Details Date Type Department Care Team (Late st Contact Info) Description 06/08/2023 Orders Only [facility] - Endocrinology [address] [place] [address], [place] [phone] Yosi Bustamante MD [address] [place] [address] [place] [address] Postoperative hypothyroidism ; Thyroid cancer (HCC) Social [...] Date Recorded PHQ2 TOTAL SCORE 1 11/25/2022 [facility] of Occupat ional Health - Occupational Stress [...] st Contact Info) Description 08/02/2024 2:20 PM SQUARE SHEAR OPERATOR Appointment [facility] [address] [place] [address] 08/02/2024 3:00 PM SQUARE SHEAR OPERATOR Office Visit [facility] - Hematology/Oncology [address] [place] [phone] Remi Beckett MD [address] [place] [phone] 08/18/2024 1:45 PM SQUARE SHEAR OPERATOR Office Visit [facility] - ENT [address] [place] [address] [phone] Neri Delgado MD [address] [place] [address] 08/30/2024 2:20 PM SQUARE SHEAR OPERATOR Appointment [facility] [address] [place] [address] documented as of this encounter Visit Diagnoses Diagnosis Postoperative hypothyroidism- Primary Postsurgical hypothyroidism Thyroid cancer (HCC) Malignant neoplasm of thyroid gland documented in this encounter Care Teams Distillery Worker Relationship Specialty Start Date End Date Yaya Villatoro MD [address] [place] [phone] PCP - General Internal Medicine 05/04/23 Joseph Manzanares MD [address] [place] [phone] Internal Medicine 04/21/23 documented as of this encounter
--- OUTSIDE RECORDS SUMMARY | 2024-07-26 08:28 | XMS_ITS | Encounter Summary ---
Author Organization [facility] Health Address [address] [place] [address] Care Team Providers Care Groundskeeper Porter Name Role Phone Joseph Manzanares MD Unavailable Yaya Villatoro MD Primary Care Provider [phone] Encounter Details Date Type Department Care Team [...] st Contact Info) Description 08/02/2024 2:20 PM COMMUTATOR PRESSER Appointment [facility] [address] [place] [address] 08/02/2024 3:00 PM COMMUTATOR PRESSER Office Visit [facility] - Hematology/Oncology [address] [place] [phone] Remi Beckett MD [address] [place] [phone] 08/18/2024 1:45 PM COMMUTATOR PRESSER Office Visit [facility] - ENT [address] [place] [phone] Neri Delgado MD [address] [place] [address] 08/30/2024 2:20 PM COMMUTATOR PRESSER Appointment [facility] [address] [place] [address] documented as of this encounter Visit Diagnoses Not on filedocumented in this encounter Care Teams Groundskeeper Porter Relationship Specialty Start Date End Date Yaya Villatoro MD [address] [place] [phone] PCP - General Internal Medicine 05/04/23 Joseph Manzanares MD [address] [place] [phone] Internal Medicine 04/21/23 documented as of this encounter
--- OUTSIDE RECORDS SUMMARY | 2024-07-26 08:28 | XMS_ITS | Encounter Summary ---
Author Organization [facility] Health Address [address] [facility] [place] [address] Care Team Providers Care Music Promoter Name Role Phone Joseph Manzanares MD Primary Care Provider [phone] Tiana Naylor DO Unavailable [phone] Reason for Visit * Reason Comments Pain Hip Encounter Details Date Type Department Care Team (Late st Contact Info) Description 04/01/2023 1:00 PM CDT Office Visit [facility] Health Pain Care [address] [facility] [address] [place] [address] Vivi Romero, PROMOTION MANAGER-BOTTOM POUNDER CEMENT SHOES [address] [facility] [address] [place] [address] Primary osteoarthritis of both hips (Primary Dx) [...] Date Recorded PHQ2 TOTAL SCORE 1 11/25/2022 [facility] [place] of Occupat ional Health - Occupational [...] Index score today: 30 * Vivi Romero, PROMOTION MANAGER-BOTTOM POUNDER CEMENT SHOES - 04/01/2023 1:06 PM CDT Brisa Hogan [...] TWICE A DAY 60 capsule 11 ??? JUHCPSV-YQOBWLSHU-HSAR PO Take by mouth once daily (Patient [...] 3 times daily 90 capsule 5 ??? OGEEUU-MUTUEWHJU-UKR-C-HYAL PO Take 1 tablet by mouth 3 [...] st Contact Info) Description 08/02/2024 2:20 PM METAL BUILDINGS ASSEMBLER Appointment [facility] [address] [place] [address] 08/02/2024 3:00 PM METAL BUILDINGS ASSEMBLER Office Visit [facility] - Hematology/Oncology [address] [place] [phone] Remi Beckett MD [address] [place] [phone] 08/18/2024 1:45 PM METAL BUILDINGS ASSEMBLER Office Visit [facility] - ENT [address] [place] [phone] Neri Delgado MD [address] [place] [address] 08/30/2024 2:20 PM METAL BUILDINGS ASSEMBLER Appointment [facility] [address] [place] [address] documented as of this encounter Visit Diagnoses Diagnosis Primary osteoarthritis of both hips- Primary Primary localized osteoarthrosis, pelvic region and thigh documented in this encounter Care Teams Music Promoter Relationship Specialty Start Date End Date Joseph Manzanares MD [address] [place] [phone] PCP - General Internal Medicine 10/07/22 04/20/23 Tiana Naylor DO [address] [facility] [place] [place] [address] Resident - PCP Internal Medicine 01/13/23 04/20/23 documented as of this encounter
--- OUTSIDE RECORDS SUMMARY | 2024-07-26 08:28 | XMS_ITS | Encounter Summary ---
Author Organization [facility] Health Address [address] [facility] [place] [address] Care Team Providers Care Gas Engine Performance Engineer Name Role Phone Joseph Manzanares MD Unavailable Yaya Villatoro MD Primary Care Provider [phone] Encounter Details Date Type Department Care Team [...] Date Recorded PHQ2 TOTAL SCORE 1 11/25/2022 [facility] of Occupat ional Health - Occupational [...] st Contact Info) Description 08/02/2024 2:20 PM LANDSCAPE HORTICULTURE INSTRUCTOR Appointment [facility] [address] [place] [address] 08/02/2024 3:00 PM LANDSCAPE HORTICULTURE INSTRUCTOR Office Visit [facility] - Hematology/Oncology [address] [place] [phone] Remi Beckett MD [address] [place] [phone] 08/18/2024 1:45 PM LANDSCAPE HORTICULTURE INSTRUCTOR Office Visit [facility] - ENT [address] [place] [phone] Neri Delgado MD [address] [place] [address] 08/30/2024 2:20 PM LANDSCAPE HORTICULTURE INSTRUCTOR Appointment [facility] [address] [place] [address] documented as of this encounter Visit Diagnoses Not on filedocumented in this encounter Care Teams Gas Engine Performance Engineer Relationship Specialty Start Date End Date Yaya Villatoro MD [address] [place] [phone] PCP - General Internal Medicine 05/04/23 Joseph Manzanares MD [address] [place] [phone] Internal Medicine 04/21/23 documented as of this encounter
--- OUTSIDE RECORDS SUMMARY | 2024-07-26 08:28 | XMS_ITS | Encounter Summary ---
Author Organization [facility] Health Address [address] [facility] [place] [address] Care Team Providers Care Loop Tacker Name Role Phone Joseph Manzanares MD Unavailable Yaya Villatoro MD Primary Care Provider [phone] Encounter Details Date Type Department Care Team (Latest Contact Info) Description 06/10/2023 12:13 PM ELECTRIC TRACK SWITCH MAINTAINER - 06/10/2023 11:59 PM [facility] Hospital Encounter [facility] LAB OP DRAW STATION [address] [place] [phone] Discharge Disposition: Home or Self Care Social [...] A DAY 60 capsule 11 05/28/2023 06/14/2023 FWVNLDL-RJKLLQMOF-CVTD PO Take by mouth once daily 06/13/2023 [...] mouth 3 times daily with meals 06/13/2023 XQATZL-DVMSSZFRB-RAV-C-H YAL PO Take 1 tablet by mouth [...] st Contact Info) Description 08/02/2024 2:20 PM ELECTRIC TRACK SWITCH MAINTAINER Appointment [facility] [address] [place] [address] 08/02/2024 3:00 PM ELECTRIC TRACK SWITCH MAINTAINER Office Visit [facility] - Hematology/Oncology [address] [place] [address] Remi Beckett MD [address] [place] [address] 08/18/2024 1:45 PM ELECTRIC TRACK SWITCH MAINTAINER Office Visit [facility] - ENT [address] [place] [address] Neri Delgado MD [address] [place] [address] 08/30/2024 2:20 PM ELECTRIC TRACK SWITCH MAINTAINER Appointment [facility] [address] [place] [address] documented as of this encounter Procedures Procedure Name Priority Date/Time Associated Diagnosis Comments THYROGLOBULIN REFLEX PROFILE Routine 06/10/2023 12:29 PM ELECTRIC TRACK SWITCH MAINTAINER Postoperative hypothyroidism Thyroid cancer (HCC) Hypocalcemia Other hypoparathyroidism THYROGLOBULIN BY ANTONIETA RFLXED Routine 06/10/2023 12:29 PM ELECTRIC TRACK SWITCH MAINTAINER Postoperative hypothyroidism Thyroid cancer (HCC) Hypocalcemia Other hypoparathyroidism TSH Routine 06/10/2023 12:29 PM ELECTRIC TRACK SWITCH MAINTAINER Postoperative hypothyroidism Thyroid cancer (HCC) Hypocalcemia Other hypoparathyroidism documented in this encounter Results * (ABNORMAL) THYROGLOBULIN BY ANTONIETA RFLXED (06/10/2023 12:29 PM ELECTRIC TRACK SWITCH MAINTAINER) Thyroglobulin by ANTONIETA 141.9(H) 1.5 - 38.5 ng/mL 06/11/2023 6:08 PM ELECTRIC TRACK SWITCH MAINTAINER [facility] ([facility]) Comment: According to the National [...] Lab Venipuncture / Unknown 06/10/2023 12:29 PM ELECTRIC TRACK SWITCH MAINTAINER 06/10/2023 12:42 PM ELECTRIC TRACK SWITCH MAINTAINER Narrative [facility] ([facility]) - 06/11/2023 6:08 PM ELECTRIC TRACK SWITCH MAINTAINER Performed at: ??01 - [facility] [address] [place], [place] ??[id number] Solar Energy Consultant And Designer: Oral Melendez PhD, Phone: ??[phone] Yosi Bustamante MD LAB - CHEMISTRY ORD ERABLES Performing Organization Address City/[facility]/ZIP Co de Phone Number [facility] ([facility]) [address] [place] [address] * THYROGLOBULIN REFLEX PROFILE (06/10/2023 12:29 PM ELECTRIC TRACK SWITCH MAINTAINER) Thyroglobulin Antibody <1.0 0.0 - 0.9 IU/mL 06/11/2023 6:08 PM ELECTRIC TRACK SWITCH MAINTAINER [facility] ([facility]) Comment:Thyroglobulin Antibo dy measured by Lisbet Marcos Methodology Blood BLOOD SPECIMEN / Unknown Lab Venipuncture / Unknown 06/10/2023 12:29 PM ELECTRIC TRACK SWITCH MAINTAINER 06/10/2023 12:42 PM ELECTRIC TRACK SWITCH MAINTAINER Narrative [facility] ([facility]) - 06/11/2023 6:08 PM ELECTRIC TRACK SWITCH MAINTAINER Performed at: ??01 - [facility] [address] [place], [place] ??[id number] Solar Energy Consultant And Designer: Oral Melendez PhD, Phone: ??[phone] Yosi Bustamante MD LAB - CHEMISTRY ORD ERABLES Performing Organization Address City/[facility]/ZIP Co de Phone Number [facility] ([facility]) [address] [place] [address] * (ABNORMAL) TSH (06/10/2023 12:29 PM ELECTRIC TRACK SWITCH MAINTAINER) TSH <0.010(L) 0.350 - 4.940 uIU/mL 06/10/2023 1:41 PM ELECTRIC TRACK SWITCH MAINTAINER [facility] Blood BLOOD SPECIMEN / Unknown Lab Venipuncture / Unknown 06/10/2023 12:29 PM ELECTRIC TRACK SWITCH MAINTAINER 06/10/2023 12:49 PM ELECTRIC TRACK SWITCH MAINTAINER Yosi Bustamante MD LAB - CHEMISTRY ORD ERABLES [facility] [address] [place] [address], [facility] [phone] documented in this encounter Visit Diagnoses Diagnosis Postoperative hypothyroidism Postsurgical hypothyroidism Thyroid cancer (HCC) Malignant neoplasm of thyroid gland Hypocalcemia Other hypoparathyroidism (HCC) documented in this encounter Care Teams Loop Tacker Relationship Specialty Start Date End Date Yaya Villatoro MD [address] [facility] [address] [place] [phone] PCP - General Internal Medicine 05/04/23 Joseph Manzanares MD [address] [place] [address] Internal Medicine 04/21/23 documented as of this encounter
--- OUTSIDE RECORDS SUMMARY | 2024-07-26 08:28 | XMS_ITS | Encounter Summary ---
Author Organization [facility] Health Address [address] [facility] [place] [address] Care Team Providers Care Ballpoint Pens Assembler Name Role Phone Tiana Naylor DO Primary Care Provider [phone] Joseph Manzanares MD Unavailable Reason for Visit * Reason Comments Refill Request Encounter Details Date Type Department Care Team (Late st Contact Info) Description 04/21/2023 Refill [facility] - Internal Med [address] [facility] [place] [address] Tiana Naylor DO [address] [facility] [place], [place] [phone] Refill Request Social History Tobacco Use Types [...] st Contact Info) Description 08/02/2024 2:20 PM COBBLER SOLE Appointment [facility] [address] [place] [address] 08/02/2024 3:00 PM COBBLER SOLE Office Visit [facility] - Hematology/Oncology [address] [place] [phone] Remi Beckett MD [address] [place] [phone] 08/18/2024 1:45 PM COBBLER SOLE Office Visit [facility] - ENT [address] [place] [phone] Neri Delgado MD [address] [place] [address] 08/30/2024 2:20 PM COBBLER SOLE Appointment [facility] [address] [place] [address] documented as of this encounter Visit Diagnoses Diagnosis Hyperlipidemia, unspecified hyperlipidemia type documented in this encounter Care Teams Ballpoint Pens Assembler Relationship Specialty Start Date End Date Tiana Naylor DO [address] [place] [address] PCP - General Internal Medicine 04/21/23 05/03/23 Joseph Manzanares MD [address] [place] [phone] Internal Medicine 04/21/23 documented as of this encounter
--- OUTSIDE RECORDS SUMMARY | 2024-07-26 08:28 | XMS_ITS | Encounter Summary ---
Author Organization [facility] Address [address] [facility] [place] [address] Care Team Providers Care Candlemaker Name Role Phone Joseph Manzanares MD Unavailable Yaya Villatoro MD Primary Care Provider [phone] Reason for Visit * Reason Comments Establish Care 6 month cervical spi nal fusion * Consult, Test & Treat (Routine) - Closed Specialty Diagnoses / Procedures Referred By Contact Referred To Contact Otolaryngology / ENT-Otolaryngology Yaya Villatoro MD [address] [address] Neri Delgado MD [address] [place] [address] Referral ID Status Reason Start Date Expiration Date Visits Re quested Visits Authorized [id number] Closed 08/02/2023 01/31/2024 1 1 Encounter Details Date Type Department Care Team (Late st Contact Info) Description 08/06/2023 2:00 PM PASSENGER RELATIONS REPRESENTATIVE Office Visit [facility] - ENT [address] [place] [phone] Neri Delgado MD [address] [place] [address] Hoarseness (Primary Dx); Oropharyngeal dysphagia Social History [...] Comments Blood Pressure 130/72 08/06/2023 2:26 PM PASSENGER RELATIONS REPRESENTATIVE Pulse 92 08/06/2023 2:26 PM PASSENGER RELATIONS REPRESENTATIVE Temperature - - Respiratory Rate - - Oxygen Saturation - - Inhaled Oxygen Concentration - - Weight 64.7 kg (142 lb 9.6 oz) 08/06/2023 2:26 P M PASSENGER RELATIONS REPRESENTATIVE Height 157.5 cm (5' 2) 08/06/2023 2:26 PM PASSENGER RELATIONS REPRESENTATIVE Body Mass Index 26.08 08/06/2023 2:26 PM PASSENGER RELATIONS REPRESENTATIVE documented in this encounter Functional Status Functional [...] Priscilla Bernstein MA - 08/06/2023 2:26 PM PASSENGER RELATIONS REPRESENTATIVE Thank you for visiting [facility] Otolaryngology - Head & [...] an appointment, please call our office at [phone] Wednesday through Wednesday from 8:30 am to4:30 pm. You can also request a routine appointment through your [employer] account. Prescription Refills Contact your pharmacy to [...] the medical exchange at and ask the stemming machine operator to page the ENT physician litigation secretary. *Caller ID blocking service will need to be turned off for your call to be returned. We also specialize in Hearing Aids, Allergy testing, swallowing disorders, voice problems, cancer diagnosis, and so much more. Visit our website at [email or web address] for information about our practice and an interactive health encyclopedia. ENGER RELATIONS REPRESENTATIVE documented in this encounter Progress Notes * Evelyn Ugalde MD - 08/06/2023 2:24 PM CST CC: Chief Complaint Patient presents with ??? Establish Care 6 month cervical spinal fusion Diagnosis: Site: Thyroid Histology: PTC Stage: [id number] AJCC IVb Details: Positive margins, LVI +, [...] naloxone HCl (Narcan) 4 MG/0.1ML nasal spray [place] 1 (one) spray into the nose as [...] fusion likely contributing to dysphagia. Discussed with SHIRT HEMMER. - MBS ordered 3. 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 Sandy Ugalde MD Otolaryngology and Head and Neck Surgery Resident 08/06/23 ENGER RELATIONS REPRESENTATIVE Associated attestation - Neri Delgado MD - 08/06/2023 4:01 PM PASSENGER RELATIONS REPRESENTATIVE Attending Physician Supervisory Note I personally interviewed [...] 3:02 PM CSTAssociated Order(s): PROC ENDOSCOPY-LARYNX Procedure(s): [place] LARYNGOSCOPY,FLEX FIBER,DIAGNOSTIC Pre-Procedure Diagnose(s): Hoarseness Procedure Note Anesthesia: Lidocaine 2% and Stone-Synephrine 1/2% Endoscopy Type: Flexible Odzfy-Hsixatnhinqcrg-Rofwlhohrdev Procedure Details: Informed consent was obtained. The [...] The patient tolerated procedure well. Complications: None ENGER RELATIONS REPRESENTATIVE documented in this encounter Plan of Treatment Upcoming Encounters Date Type Department Care Team (Late st Contact Info) Description 08/02/2024 2:20 PM PASSENGER RELATIONS REPRESENTATIVE Appointment [facility] [address] [place] [address] 08/02/2024 3:00 PM PASSENGER RELATIONS REPRESENTATIVE Office Visit [facility] - Hematology/Oncology [address] [place] [phone] Remi Beckett MD [address] [place] [phone] 08/18/2024 1:45 PM PASSENGER RELATIONS REPRESENTATIVE Office Visit [facility] - ENT [address] [place] [phone] Neri Delgado MD [address] [place] [address] 08/30/2024 2:20 PM PASSENGER RELATIONS REPRESENTATIVE Appointment [facility] [address] [place] [address] documented as of this encounter Procedures Procedure Name Priority Date/Time Associated Diagnosis Comments [place] LARYNGOSCOPY,FLEX FIBER,DIAGNOSTIC Routine 08/06/2023 3:02 PM PASSENGER RELATIONS REPRESENTATIVE Hoarseness documented in this encounter Results * MO LARYNGOSCOPY,FLEX FIBER,DIAGNOSTIC (08/06/2023 3:02 PM PASSENGER RELATIONS REPRESENTATIVE) Narrative Evelyn Ugalde MD - 08/06/2023 3:02 PM PASSENGER RELATIONS REPRESENTATIVE Evelyn Ugalde MD ? 08/06/2023 ??4:01 PM Procedure Note Anesthesia: Lidocaine 2% and Stone-Synephrine 1/2% Endoscopy Type: ??Flexible Hrzaw-Jvfdkpkwazopum-Nvxvwuecsvxx Procedure Details: ??Informed consent was obtained. ??The [...] phase documented in this encounter Care Teams Candlemaker Relationship Specialty Start Date End Date Yaya Villatoro MD [address] [phone] PCP - General Internal Medicine 05/04/23 Joseph Manzanares MD [address] [place] [phone] Internal Medicine 04/21/23 documented as of this encounter
--- OUTSIDE RECORDS SUMMARY | 2024-07-26 08:29 | XMS_ITS | Encounter Summary ---
Author Organization [facility] Address [address] [facility] [place] [address] Care Team Providers Care Weaving Inspector Name Role Phone Adriana Adams DO Unavailable Joseph Manzanares MD Primary Care Provider [phone] Reason for Referral * Radiology Services (Routine) - Closed Specialty Diagnoses / Procedures Referred By Yuan robins Referred To Contact Diagnoses Cervical spine tumor Cancer, metastatic to bone (HCC) Thyroid cancer (HCC) Procedures MRI CERVICAL SPINE WWO CONT Marcio Mcintosh MD [address] [place] [address] [address] Referral ID Status Reason Start Date Expiration Date Visits Re quested Visits Authorized [id number] Closed 03/25/2023 06/23/2023 1 1 Encounter Details Date Type Department Care Team (Latest Contact Info) Description 12/24/2022 11:30 AM CDT - 12/24/2022 11:59 PM CDT Hospital Encounter [facility] [place] [address] Marcio Mcintosh MD [address] [place] [address] Discharge Disposition: Home or Self [...] A DAY 60 capsule 11 02/22/2022 05/28/2023 FWCEYKV-STQRIUOXV-OBMG PO Take by mouth once daily 06/13/2023 [...] sprayIndications:Allergi c rhinitis, unspecified seasonality, unspecified trigger Delaplane 2 (two) sprays into each nostril once daily 48 g 11/25/2022 02/22/2023 DPNQRR-PQUEYOQZG-PTM-C-H YAL PO Take 1 tablet by mouth [...] Return Patient Visit Department of Radiation Oncology [facility] ENCOUNTER DATE: 12/24/2022 PATIENT IDENTIFICATION Brisa Hogan [...] 2 fractions ending on 09/21/2022 Referring MD: Rf Test Technician:?Yosi Bustamante MD ENT Surgeon: ??Neri Delgado MD [...] Membrances: Mucous Membranes: Dry Eye: Eyes: 0-No twisting frame changer baseline Ears: Salivary Glands: Salivary Glands: 0-no twisting frame changer baseline Pharynx and Esophagus: Pharynx and Esophagus: 0-No twisting frame changer baseline Larynx: Larynx: 0-No change in baseline Upper GI: Upper GI: 0-no twisting frame changer baseline Lower GI including pelvis: Lower GI including pelvis: 0-No twisting frame changer baseline Lungs: Lungs: 0-No twisting frame changer baseline Other: Other: (left lower arm and [...] CAPSULE BY MOUTH TWICE A DAY ??? FCHDQAX-JKQZRUPGV-ABQO PO Take by mouth once daily ??? [...] fluticasone propionate (Flonase) 50 MCG/ACT nasal spray Delaplane 2 (two) sprays into each nostril once daily (Patient not taking: Reported on 12/24/2022) ??? gabapentin (Neurontin) 300 MG capsule Take 1 (one) capsule by mouth 3 times daily ??? GWQDRG-CEHUDSPFF-DBW-C-HYAL PO Take 1 tablet by mouth 3 [...] of this note, please contact the author [facility] for clarification. Marcio Mcintosh MD 12/24/2022 12:43 PM documented in this encounter Plan of Treatment Upcoming Encounters Date Type Department Care Team (Late st Contact Info) Description 08/02/2024 2:20 PM IT PROGRAM ENGAGEMENT DIRECTOR Appointment [facility] [address] [place] [address] 08/02/2024 3:00 PM IT PROGRAM ENGAGEMENT DIRECTOR Office Visit [facility] - Hematology/Oncology [address] [place] [phone] Remi Beckett MD [address] [place] [phone] 08/18/2024 1:45 PM IT PROGRAM ENGAGEMENT DIRECTOR Office Visit [facility] - ENT [address] [place] [phone] Neri Delgado MD [address] [place] [address] 08/30/2024 2:20 PM IT PROGRAM ENGAGEMENT DIRECTOR Appointment [facility] [address] [place] [address] documented as of this encounter Results * [...] EXAM: ??03/25/2023 12:55 PM, LOCATION ??[facility] INDICATION: D49.2: Cervical spine tumor C79.51: Cancer, [...] EXAM: 03/25/2023 12:55 PM, LOCATION [facility] INDICATION: D49.2: Cervical spine tumor C79.51: Cancer, [...] gland documented in this encounter Care Teams Weaving Inspector Relationship Specialty Start Date End Date Joseph Manzanares MD [address] [place] [phone] PCP - General Internal Medicine 10/07/22 04/20/23 Adriana Adams DO [address] [place] [phone] Resident - PCP Internal Medicine 04/06/22 01/12/23 documented as of this encounter
--- OUTSIDE RECORDS SUMMARY | 2024-07-26 08:29 | XMS_ITS | Encounter Summary ---
Author Organization [facility] Address [address] [facility] [place] [place] [address] Care Team Providers Care Qa Test Analyst Name Role Phone Joseph Manzanares MD Primary Care Provider [phone] Tiana Naylor DO Unavailable [phone] Reason for Referral * Evaluate (Routine) - Closed Specialty Diagnoses / Procedures Referred By Contac t Referred To Contact ENT-Otolaryngology Diagnoses S/P cervical spinal fusion Coy Gómez MD [address] [place] [address] [address] [place] [address] [facility] [address] [phone] Referral ID Status Reason Start Date Expiration Date V isits Requested Visits Authorized [id number] Closed Specialty Services Required 01/20/2023 01/20/2024 1 1 Reason for Visit * Reason Comments Post-Op Neck surgery Encounter Details Date Type Department Care Team (Late st Contact Info) Description 01/20/2023 11:15 AM CDT Office Visit [facility] - Neurosurgery [address] [place] [phone] Coy Gómez MD [address] [place] [address] [address] [place] [address] S/P cervical spinal fusion (Primary [...] Recorded PHQ2 TOTAL SCORE 1 11/25/2022 [facility] - [...] information For any questions please call Heather [phone] documented in this encounter Progress Notes * Anaya Bach APRN-CNP - 01/20/2023 11:15 AM CDT NEUROSURGERY CLINIC NOTE Chief Complaint (CC): follow up HISTORY OF PRESENT ILLNESS (HPI): Brisa Hogan is a 62 year old female with??metastatic??high risk papillary thyroid cancer??(dI7uC5sVs - IVb) s/p??salvage total thyroidectomy and neck [...] ??? calcitriol (Rocaltrol) 0.5 MCG capsule ??? YMYOLYA-DTXDEMXFS-VTYL PO ??? celecoxib (CeleBREX) 200 MG capsule ??? cetirizine (ZYRTEC) 10 MG tablet ??? clonazePAM (KLONOPIN) 0.5 MG tablet ??? cyclobenzaprine (Flexeril) 5 MG tablet ??? famotidine (PEPCID) 20 MG tablet ??? fish oil/omega-3 fatty acids (PROMEGA;CARDI-OMEGA 3) 1000 MG capsule ??? fluticasone propionate (Flonase) 50 MCG/ACT nasal spray ??? gabapentin (Neurontin) 300 MG capsule ??? LIMOBI-HLJICJSUU-JIP-C-HYAL PO ??? levothyroxine (Synthroid) 112 MCG tablet [...] symmetric, sensation intact ?? Deltoid Bicep Tricep Bleach Chlorinator Wrist Ext Finger ext Hip Flexor Quad Hamstring Tib Ant Gastroc EHL Right 5 5 5 5 5 5 5 5 5 5 5 5 Left 0 1 0 5 5 5 4 5 5 5 5 5 RADIOLOGY PROCEDURE: MRI CERVICAL SPINE WWO CONT, DATE/TIME OF EXAM: 12/24/2022 11:32 AM, LOCATION [facility] ?? INDICATION: D48.5: Neoplasm of uncertain behavior [...] st Contact Info) Description 08/02/2024 2:20 PM HAZARDOUS MATERIALS ANALYST Appointment [facility] [address] [place] [address] 08/02/2024 3:00 PM HAZARDOUS MATERIALS ANALYST Office Visit [facility] - Hematology/Oncology [address] [place] [address] Remi Beckett MD [address] [place] [phone] 08/18/2024 1:45 PM HAZARDOUS MATERIALS ANALYST Office Visit [facility] - ENT [address] [place] [phone] Neri Delgado MD [address] [place] [address] 08/30/2024 2:20 PM HAZARDOUS MATERIALS ANALYST Appointment [facility] [address] [place] [address] Scheduled Referrals Name Type Priority Associated Diagnoses Order Schedule Ref to ENT Otolaryngology - [facility] Referral Routine S/P cervical spinal fusion 1 Occurrences starting 01/20/2023 until 01/21/2024 documented as of this encounter Visit Diagnoses Diagnosis S/P cervical spinal fusion- Primary Arthrodesis status documented in this encounter Care Teams Qa Test Analyst Relationship Specialty [place] [address] [place] [phone] PCP - General Internal Medicine 10/07/22 04/20/23 Tiana Naylor DO [address] [facility] [place] [place] [address] Resident - PCP Internal Medicine 01/13/23 04/20/23 documented as of this encounter
--- OUTSIDE RECORDS SUMMARY | 2024-07-26 08:29 | XMS_ITS | Encounter Summary ---
Author Organization [facility] Health Address [address] [facility] [place] [address] Care Team Providers Care Hemp Fiber Taker Off Name Role Phone Adriana Adams DO Unavailable Joseph Manzanares MD Primary Care Provider [phone] Encounter Details Date Type Department Care Team [...] st Contact Info) Description 08/02/2024 2:20 PM GELATIN DYNAMITE PACKING OPERATOR Appointment [facility] [place] [address] 08/02/2024 3:00 PM GELATIN DYNAMITE PACKING OPERATOR Office Visit [facility] - Hematology/Oncology [address] [place] [phone] Remi Beckett MD [address] [place] [phone] 08/18/2024 1:45 PM GELATIN DYNAMITE PACKING OPERATOR Office Visit [facility] - ENT [address] [place] [phone] Neri Delgado MD [address] [place] [address] 08/30/2024 2:20 PM GELATIN DYNAMITE PACKING OPERATOR Appointment [facility] [address] [place] [address] documented as of this encounter Visit Diagnoses Not on filedocumented in this encounter Care Teams Hemp Fiber Taker Off Relationship Specialty Start Date End Date Joseph Manzanares MD [address] [place] [phone] PCP - General Internal Medicine 10/07/22 04/20/23 Adriana Adams DO [address] [place] [phone] Resident - PCP Internal Medicine 04/06/22 01/12/23 documented as of this encounter
--- OUTSIDE RECORDS SUMMARY | 2024-07-26 08:29 | XMS_ITS | Encounter Summary ---
Author Organization [facility] Health Address [address] [facility] [place] [address] Care Team Providers Care Card Lacer Jacquard Name Role Phone Joseph Manzanares MD Primary Care Provider [phone] Tiana Naylor DO Unavailable [phone] Encounter Details Date Type Department Care Team (Latest Contact Info) Description 01/20/2023 12:25 PM CDT - 01/20/2023 11:59 PM CDT Hospital Encounter [facility] OP DRAW STATION [address] [place] [phone] Discharge Disposition: Home or Self Care Social [...] A DAY 60 capsule 11 02/22/2022 05/28/2023 [id number]-LVUGNXKDI-IOMA PO Take by mouth once daily 06/13/2023 [...] sprayIndications:Allergi c rhinitis, unspecified seasonality, unspecified trigger [place]wood 2 (two) sprays into each nostril once daily 48 g 11/25/2022 02/22/2023 NOSPYZ-KXZSZLQID-AZA-C-H YAL PO Take 1 tablet by mouth [...] st Contact Info) Description 08/02/2024 2:20 PM DOG GROOMER Appointment [facility] [address] [place] [address] 08/02/2024 3:00 PM DOG GROOMER Office Visit [facility] - Hematology/Oncology [address] [place] [address] Remi Beckett MD [address] [place] [address] 08/18/2024 1:45 PM DOG GROOMER Office Visit [facility] - ENT [address] [place] [address] Neri Delgado MD [address] [place] [address] 08/30/2024 2:20 PM DOG GROOMER Appointment [facility] [address] [place] [address] documented as of this encounter Procedures Procedure [...] 38.5 ng/mL 01/21/2023 6:08 PM CDT [facility] ([facility]) Comment: According [...] is 0.1 ng/mL Thyroglobulin measured by Lisbet [place] Immunometric Assay Blood BLOOD SPECIMEN / Unknown Lab Venipuncture / Unknown 01/20/2023 12:43 PM CDT 01/20/2023 1:03 PM CDT Narrative [facility] ([facility]) - 01/21/2023 6:08 PM CDT Performed at: ??01 - [facility] [address] [facility], [place], [place] ??[id number] Pan Shaker: Oral Melendez PhD, Phone: ??[phone] Yosi Bustamante MD LAB - CHEMISTRY ORD ERABLES Performing Organization Address City/[facility]/ZIP Co de Phone Number [facility]) [address] [place] [address] * (ABNORMAL) T4 FREE (01/20/2023 12:43 PM CDT) Pathologist [facility] T4 Free 1.6(H) 0.7 - 1.5 ng/dL 01/20/2023 2:30 PM CDT [facility] Blood BLOOD SPECIMEN / Unknown Lab Venipuncture / Unknown 01/20/2023 12:43 PM CDT 01/20/2023 1:09 PM CDT Yosi Bustamante MD LAB - CHEMISTRY ORD ERABLES [facility] [address] [address], [facility] [phone] * THYROGLOBULIN REFLEX PROFILE (01/20/2023 12:43 PM CDT) Pathologist [facility] Thyroglobulin Antibody <1.0 0.0 - 0.9 IU/mL 01/21/2023 6:08 PM CDT [facility] ([facility]) Comment:Thyroglobulin Antibo dy measured by Lisbet Brooklyn Methodology Blood BLOOD SPECIMEN / Unknown Lab Venipuncture / Unknown 01/20/2023 12:43 PM CDT 01/20/2023 1:03 PM CDT Narrative [facility] ([facility]) - 01/21/2023 6:08 PM CDT Performed at: ??01 - [facility] [address] [facility], [place], [place] ??[id number] Pan Shaker: Oral Melendez PhD, Phone: ??[phone] Yosi Bustamante MD LAB - CHEMISTRY ORD ERABLES Performing Organization Address City/[facility]/ZIP Co de Phone Number [facility] ([facility]) [address] [place] [address] * (ABNORMAL) TSH REFLEX FREE T4 (01/20/2023 12:43 PM CDT) TSH <0.010(L) 0.350 - 4.940 uIU/mL 01/20/2023 1:57 PM CDT [facility] Blood BLOOD SPECIMEN / Unknown Lab Venipuncture / Unknown 01/20/2023 12:43 PM CDT 01/20/2023 1:09 PM CDT Yosi Bustamante MD LAB - CHEMISTRY ORD ERABLES Performing Organization Address City/[facility]/ZIP Co de Phone Number [facility] [address] [place] [address], [facility] [phone] documented in this encounter Visit Diagnoses Diagnosis Postoperative hypothyroidism- Primary Postsurgical hypothyroidism Thyroid cancer (HCC) Malignant neoplasm of thyroid gland Hypocalcemia Other hypoparathyroidism (HCC) documented in this encounter Care Teams Card Lacer Jacquard Relationship Specialty Start Date End Date Joseph Manzanares MD [address] [place] [address] PCP - General Internal Medicine 10/07/22 04/20/23 Tiana Naylor DO [address] [facility] [place] [address] Resident - PCP Internal Medicine 01/13/23 04/20/23 documented as of this encounter
--- OUTSIDE RECORDS SUMMARY | 2024-07-26 08:29 | XMS_ITS | Encounter Summary ---
Author Organization [facility] Health Address [address] [facility] [place] [address] Care Team Providers Care Bat Boy/Girl Name Role Phone Joseph Manzanares MD Primary Care Provider [phone] Tiana Naylor DO Unavailable [phone] Reason for Visit * Reason Onset Date Comments MEDICATION REFILL 01/13/2023 Encounter Details Date Type Department Care Team (Late st Contact Info) Description 01/13/2023 Refill [facility] - Internal Med [address] [facility] [place] [phone] Joseph Manzanares MD [address] [place] [address] MEDICATION REFILL Social History Tobacco [...] st Contact Info) Description 08/02/2024 2:20 PM FOOD ADVISER Appointment [address] [address] 08/02/2024 3:00 PM FOOD ADVISER Office Visit [facility] - Hematology/Oncology [address] [place] [phone] Remi Beckett MD [address] [place] [address] 08/18/2024 1:45 PM FOOD ADVISER [facility] [address] [place] [phone] Neri Delgado MD [address] [place] [address] 08/30/2024 2:20 PM FOOD ADVISER Appointment [facility] [address] [place] [address] documented as of this encounter Visit Diagnoses Diagnosis Gastroesophageal reflux disease, unspecified whether esophagitis present documented in this encounter Care Teams Bat Boy/Girl Relationship Specialty Start Date End Date Joseph Manzanares MD [address] [place] [phone] PCP - General Internal Medicine 10/07/22 04/20/23 Tiana Naylor DO [address] [place] [address] Resident - PCP Internal Medicine 01/13/23 04/20/23 documented as of this encounter
--- OUTSIDE RECORDS SUMMARY | 2024-07-26 08:29 | XMS_ITS | Encounter Summary ---
Author Organization [facility] Health Address [address] [facility] [place] [address] Care Team Providers Care Chain Mender Name Role Phone Joseph Manzanares MD Primary Care Provider [phone] Tiana Naylor DO Unavailable [phone] Reason for Visit * Treatment (Routine) - Closed Specialty Diagnoses / Procedures Referred By Contricardo t Referred To Contact Radiology / Pain Management Diagnoses Unilateral primary osteoarthritis, left hip Procedures AR DRAIN/INJECT LARGE JOINT/BURSA Gerard Gallegos MD [facility] [place] [address] [facility] Pain Management [address] [place] [address] Referral ID Status Reason Start Date Expiration Date Visits Re quested Visits Authorized [id number] Closed 12/24/2022 06/25/2023 1 1 Encounter Details Date Type Department Care Team (Latest Contact Info) Description 01/14/2023 1:03 PM CDT - 01/14/2023 11:59 PM T Hospital Encounter [facility] Health Pain Care [address] [address] Gerard Gallegos MD [address] [place] [phone] Discharge Disposition: Home or Self Care [...] headache, or any other problems, please call [phone] or the after hours answering service at [phone] and tell them your physician's name. The exchange willalert the physician publications editor. May remove band-aid in the morning on [...] A DAY 60 capsule 11 02/22/2022 05/28/2023 [id number]-LNWNUYPMD-LJVS PO Take by mouth once daily 06/13/2023 [...] sprayIndications:Allergi c rhinitis, unspecified seasonality, unspecified trigger Leonardo 2 (two) sprays into each nostril once daily 48 g 11/25/2022 02/22/2023 [id number]-KDUZMHASN-JWW-C-H YAL PO Take 1 tablet by mouth [...] hip intra-articular steroid injection Gerard Kay MD/PhD [employer] Superintendent Chronic Pain Management documented in this encounter Procedure Notes * Gerard Gallegos MD - 01/14/2023 2:27 PM CDTAssociated Order(s): PAIN MANAGEMENT PROCEDURE TIME PROCEDURE NOTE - LEFT Hip intra-articular steroid injection Primary pain complaint: Hip Pain Pre-procedure diagnosis: Hip arthritis Post-procedure diagnosis: Same Attending staff: Dr. Gerard Kay MD., Ph.D. Electrical Power Station Technician: MD Ishaan. The procedure and risks were [...] st Contact Info) Description 08/02/2024 2:20 PM MANUFACTURING CONTROLLER Appointment [facility] [address] [place] [address] 08/02/2024 3:00 PM MANUFACTURING CONTROLLER Office Visit [facility] - Hematology/Oncology [address] [place] [phone] [place] [address] [place] [phone] 08/18/2024 1:45 PM MANUFACTURING CONTROLLER Office Visit [facility] - ENT [address] [place] [phone] Neri Delgado MD [address] [place] [address] 08/30/2024 2:20 PM MANUFACTURING CONTROLLER Appointment [facility] [address] [place] [address] documented as of this encounter Procedures Procedure [...] Attending staff: Dr. Gerard Kay MD., Ph.D. Electrical Power Station Technician: MD Ishaan. The procedure and risks were [...] Starting on Josi 01/14/23 at 1315, Until Wed01/14/23 at 1422, Created by cabinet override $ Given 01/14/2023 2:22 PM CDT 5 mL Left Hip lidocaine (Xylocaine PF) 1% injection ADS Med 1 dose, Starting on Josi 01/14/23 at 1315, Until Wed01/14/23 at 1423, Created by cabinet override lidocaine [...] Hip documented in this encounter Care Teams Chain Mender Relationship Specialty Start Date End Date Joseph Manzanares MD [address] [place] [address] PCP - General Internal Medicine 10/07/22 04/20/23 Tiana Naylor DO [address] [place] [address] Resident - PCP Internal Medicine 01/13/23 04/20/23 documented as of this encounter
--- OUTSIDE RECORDS SUMMARY | 2024-07-26 08:29 | XMS_ITS | Encounter Summary ---
Author Organization [facility] Health Address [address] [facility] [place] [address] Care Team Providers Care Bacteriologist Soil Name Role Phone Joseph Manzanares MD Primary Care Provider [phone] Tiana Naylor DO Unavailable [phone] Reason for Visit * Reason Onset Date Comments MEDICATION REFILL 02/03/2023 Rx Medication Issue 02/03/2023 Encounter Details Date Type Department Care Team (Late st Contact Info) Description 02/03/2023 Refill [facility] - [facility] Med [address] [facility] [place] [address] Joseph Manzanares MD [address] [place] [address] MEDICATION REFILL; Rx Medication Issue [...] Recorded PHQ2 TOTAL SCORE 1 11/25/2022 [facility] [place] of Occupat ional Health - Occupational Stress [...] st Contact Info) Description 08/02/2024 2:20 PM PRODUCT EXAMINER Appointment [facility] [address] [place] [address] 08/02/2024 3:00 PM PRODUCT EXAMINER Office Visit [facility] - Hematology/Oncology [address] [place] [phone] Remi Beckett MD [address] [place] [place] [phone] 08/18/2024 1:45 PM PRODUCT EXAMINER Office Visit [facility] - ENT [address] [place] [phone] Neri Delgado MD [address] [place] [address] 08/30/2024 2:20 PM PRODUCT EXAMINER Appointment [facility] [address] [place] [address] documented as of this encounter Visit Diagnoses Diagnosis Gastroesophageal reflux disease, unspecified whether esophagitis present documented in this encounter Care Teams Bacteriologist Soil Relationship Specialty Start Date End Date Joseph Manzanares MD [address] [place] [phone] PCP - General Internal Medicine 10/07/22 04/20/23 Tiana Naylor DO [address] [facility] [place] [address] Resident - PCP Internal Medicine 01/13/23 04/20/23 documented as of this encounter
--- OUTSIDE RECORDS SUMMARY | 2024-07-26 08:29 | XMS_ITS | Encounter Summary ---
Author Organization [facility] Health Address [address] [facility] [place] [address] Care Team Providers Care Meter Record Clerk Name Role Phone Adriana Adams DO Unavailable Joseph Manzanares MD Primary Care Provider [phone] Encounter Details Date Type Department Care Team [...] Contact Info) Description 08/02/2024 2:20 PM MANAGER CLIENT Appointment [facility] [place] [address] 08/02/2024 3:00 PM MANAGER CLIENT Office Visit [facility] - Hematology/Oncology [address] [place] [phone] Remi Beckett MD [address] [place] [phone] 08/18/2024 1:45 PM MANAGER CLIENT Office Visit [facility] [address] [place] [phone] Neri Delgado MD [address] [place] [address] 08/30/2024 2:20 PM MANAGER CLIENT Appointment [facility] [address] [place] [address] documented as of this encounter Visit Diagnoses Not on filedocumented in this encounter Care Teams Meter Record Clerk Relationship Specialty Start Date End Date Joseph Manzanares MD [address] [place] [phone] PCP - General Internal Medicine 10/07/22 04/20/23 Adriana Adams DO [address] [place] [phone] Resident - PCP Internal Medicine 04/06/22 01/12/23 documented as of this encounter
--- OUTSIDE RECORDS SUMMARY | 2024-07-26 08:29 | XMS_ITS | Encounter Summary ---
Author Organization [facility] Health Address [address] [facility] [place] [address] Care Team Providers Care X Ray Tech Name Role Phone Joseph Manzanares MD Primary Care Provider [phone] Tiana Naylor DO Unavailable [phone] Reason for Visit * Reason Comments Refill Request Encounter Details Date Type Department Care Team (Late st Contact Info) Description 02/21/2023 Refill [facility] - Internal Med [address] [place] [address], [place] [phone] Andria Anaya DO [address] [place] [address] 2L [facility] [place] [address] Refill Request Social History Tobacco [...] Date Recorded PHQ2 TOTAL SCORE 1 11/25/2022 [facility] of Occupat ional [...] Contact Info) Description 08/02/2024 2:20 PM FIELD TAX AUDITOR Appointment [facility] [address] [place] [address] 08/02/2024 3:00 PM FIELD TAX AUDITOR Office Visit [facility] - Hematology/Oncology [address] [place] [phone] Remi Beckett MD [address] [place] [phone] 08/18/2024 1:45 PM FIELD TAX AUDITOR Office Visit [facility] - ENT [address] [place] [phone] Neri Delgado MD [address] [place] [address] 08/30/2024 2:20 PM FIELD TAX AUDITOR Appointment [facility] [address] [place] [address] documented as of this encounter Visit Diagnoses Diagnosis Allergic rhinitis, unspecified seasonality, unspecified trigger documented in this encounter Care Teams X Ray Tech Relationship Specialty Start Date End Date Joseph Manzanares MD [address] [place] [address] PCP - General Internal Medicine 10/07/22 04/20/23 Tiana Naylor DO [address] [place] [address] Resident - PCP Internal Medicine 01/13/23 04/20/23 documented as of this encounter
--- OUTSIDE RECORDS SUMMARY | 2024-07-26 08:29 | XMS_ITS | Encounter Summary ---
Author Organization [facility] Health Address [address] [facility] [place] [address] Care Team Providers Care Life Science Taxonomist Name Role Phone Joseph Manzanares MD Primary Care Provider [phone] Tiana Naylor DO Unavailable [phone] Encounter Details Date Type Department Care [...] Date Recorded PHQ2 TOTAL SCORE 1 11/25/2022 [facility] [place] of Occupat ional Health - Occupational Stress [...] st Contact Info) Description 08/02/2024 2:20 PM BINDERY ASSISTANT Appointment [facility] [place] [address] 08/02/2024 3:00 PM BINDERY ASSISTANT Office Visit [facility] - Hematology/Oncology [address] [place] [phone] Remi Beckett MD [address] [place] [phone] 08/18/2024 1:45 PM BINDERY ASSISTANT Office Visit [facility] - ENT [address] [place] [phone] Neri Delgado MD [address] [place] [address] 08/30/2024 2:20 PM BINDERY ASSISTANT Appointment [facility] [address] [place] [address] documented as of this encounter Visit Diagnoses Not on filedocumented in this encounter Care Teams Life Science Taxonomist Relationship Specialty Start Date End Date Joseph Manzanares MD [address] [place] [phone] PCP - General Internal Medicine 10/07/22 04/20/23 Tiana Naylor, [address] [facility] [place] [address] Resident - PCP Internal Medicine 01/13/23 04/20/23 documented as of this encounter
--- OUTSIDE RECORDS SUMMARY | 2024-07-26 08:29 | XMS_ITS | Encounter Summary ---
Author Organization [facility] Health Address [address] [facility] [place] [address] Care Team Providers Care Diamond Cleaner Name Role Phone Joseph Manzanares MD Primary Care Provider [phone] Tiana Naylor DO Unavailable [phone] Encounter Details Date Type Department Care [...] PHQ2 TOTAL SCORE 1 11/25/2022 [facility] [place] of Occupat ional Health - Occupational Stress [...] st Contact Info) Description 08/02/2024 2:20 PM DIRECTOR CALL Appointment [facility] [place] [address] 08/02/2024 3:00 PM DIRECTOR CALL Office Visit [facility] - Hematology/Oncology [address] [place] [phone] Remi Beckett MD [address] [place] [phone] 08/18/2024 1:45 PM DIRECTOR CALL Office Visit [facility] - [facility] [address] [place] [phone] Neri Delgado MD [address] [place] [address] 08/30/2024 2:20 PM DIRECTOR CALL Appointment [facility] [address] [place] [address] documented as of this encounter Visit Diagnoses Not on filedocumented in this encounter Care Teams Diamond Cleaner Relationship Specialty Start Date End Date Joseph Manzanares MD [address] [place] [phone] PCP - General Internal Medicine 10/07/22 04/20/23 Tiana Naylor, [address] [facility] [place] [address] Resident - PCP Internal Medicine 01/13/23 04/20/23 documented as of this encounter
--- OUTSIDE RECORDS SUMMARY | 2024-07-26 08:29 | XMS_ITS | Encounter Summary ---
Author Organization [facility] Health Address [address] [facility] [place] [address] Care Team Providers Care Cloud Engagement Partner Name Role Phone Joseph Manzanares MD Primary Care Provider [phone] Tiana Naylor DO Unavailable [phone] Reason for Visit * Reason Comments Pain Hip Encounter Details Date Type Department Care Team (Late st Contact Info) Description 02/11/2023 1:40 PM CDT Office Visit [facility] Health Pain Care [address] [facility] [address] [place] [address] Vivi Romero, TYING MACHINE OPERATOR LUMBER-CENTERLESS GRINDER [address] [facility] [address] [place], [place] [phone] Primary osteoarthritis of both hips (Primary Dx) [...] hip pain pain. She rates the pain 310 today. ?? What was the worst your [...] TWICE A DAY 60 capsule 11 ??? GOFDUYI-AMIXVHOEV-MODL PO Take by mouth once daily ??? [...] fluticasone propionate (Flonase) 50 MCG/ACT nasal spray [place] 2 (two) sprays into each nostril once daily 48 g 0 ??? gabapentin (Neurontin) 300 MG capsule Take 1 (one) capsule by mouth 3 times daily 90 capsule 5 ??? IUQGMF-DULJBIXAF-MGJ-C-HYAL PO Take 1 tablet by mouth 3 [...] this patient???s care. Sincerely, Vivi Romero APRN, HEARINGS REPORTER . * Nolvia Parisi, RT(R) - 02/11/2023 [...] Contact Info) Description 08/02/2024 2:20 PM COTTON PICKER OPERATOR Appointment [facility] [address] [place] [address] 08/02/2024 3:00 PM COTTON PICKER OPERATOR Office Visit [facility] Group - Hematology/Oncology [address] [place] [phone] Remi Beckett MD [address] [place] [phone] 08/18/2024 1:45 PM COTTON PICKER OPERATOR Office Visit [facility] - ENT [address] [place] [phone] Neri Delgado MD [address] [place] [address] 08/30/2024 2:20 PM COTTON PICKER OPERATOR Appointment [facility] [address] [place] [address] documented as of this encounter Visit Diagnoses Diagnosis Primary osteoarthritis of both hips- Primary Primary localized osteoarthrosis, pelvic region and thigh documented in this encounter Care Teams Cloud Engagement Partner Relationship Specialty [place] [address] [place] [phone] PCP - General Internal Medicine 10/07/22 04/20/23 Tiana Naylor DO [address] [place] [address] Resident - PCP Internal Medicine 01/13/23 04/20/23 documented as of this encounter
--- OUTSIDE RECORDS SUMMARY | 2024-07-26 08:29 | XMS_ITS | Encounter Summary ---
Author Organization [facility] Health Address [address] [place] [address] Care Team Providers Care Compliance Manager Name Role Phone Joseph Manzanares MD Primary Care Provider [phone] Tiana Naylor DO Unavailable [phone] Encounter Details Date Type Department Care [...] Date Recorded PHQ2 TOTAL SCORE 1 11/25/2022 [facility] of Occupat ional Health - Occupational Stress [...] st Contact Info) Description 08/02/2024 2:20 PM COUNTY TREASURER Appointment [facility] [place] [address] 08/02/2024 3:00 PM COUNTY TREASURER Office Visit [facility] - Hematology/Oncology [address] [place] [phone] Remi Beckett MD [address] [place] [phone] 08/18/2024 1:45 PM COUNTY TREASURER Office Visit [facility] - ENT [address] [place] [phone] Neri Delgado MD [address] [place] [address] 08/30/2024 2:20 PM COUNTY TREASURER Appointment [facility] [address] [place] [address] documented as of this encounter Visit Diagnoses Not on filedocumented in this encounter Care Teams Compliance Manager Relationship Specialty Start Date End Date Joseph Manzanares MD [address] [place] [phone] PCP - General Internal Medicine 10/07/22 04/20/23 Tiana Naylor, [address] [facility] [place] [address] Resident - PCP Internal Medicine 01/13/23 04/20/23 documented as of this encounter
--- OUTSIDE RECORDS SUMMARY | 2024-07-26 08:29 | XMS_ITS | Encounter Summary ---
Author Organization [facility] Address [address] [facility] [place] [address] Care Team Providers Care Vegetable Cook Name Role Phone Adriana Adams DO Unavailable Joseph Manzanares MD Primary Care Provider [phone] Reason for Visit * Radiology Services (Routine) - Closed Specialty Diagnoses / Procedures Referred By Yuan robins Referred To Contact Diagnoses Neoplasm of uncertain behavior of skin Thyroid cancer (HCC) Procedures MRI CERVICAL SPINE WWO CONT Marcio Mcintosh MD [address] [place] [address] [address] Referral ID Status Reason Start Date Expiration Date Visits Re quested Visits Authorized [id number] Closed 12/15/2022 12/15/2023 1 1 Encounter Details Date Type Department Care Team (Latest Contact Info) Description 12/24/2022 10:30 AM CDT - 12/24/2022 11:29 AM CDT Hospital Encounter [facility] MRI [address] [place] [phone] Marcio Mcintosh MD [address] [place] [address] Discharge Disposition: Home or Self [...] Date Recorded PHQ2 TOTAL SCORE 1 11/25/2022 [facility] of Occupat ional Health - Occupational Stress [...] A DAY 60 capsule 11 02/22/2022 05/28/2023 PHBTKTQ-TMMZNHTGR-RXVN PO Take by mouth once daily 06/13/2023 [...] sprayIndications:Allergi c rhinitis, unspecified seasonality, unspecified trigger [place] 2 (two) sprays into each nostril once daily 48 g 11/25/2022 02/22/2023 QJDAQZ-NYFOJQDKR-NUM-C-H YAL PO Take 1 tablet by mouth [...] st Contact Info) Description 08/02/2024 2:20 PM CHIEF SCIENTIFIC OFFICER Appointment [facility] [address] [place] [address] 08/02/2024 3:00 PM CHIEF SCIENTIFIC OFFICER Office Visit [facility] - Hematology/Oncology [address] [place] [phone] Remi Beckett MD [address] [place] [phone] 08/18/2024 1:45 PM CHIEF SCIENTIFIC OFFICER Office Visit [facility] - ENT [address] [place] [phone] Neri Delgado MD [address] [place] [address] 08/30/2024 2:20 PM CHIEF SCIENTIFIC OFFICER Appointment [facility] [address] [place] [address] documented as of this encounter Procedures Procedure [...] DATE/TIME OF EXAM: ??12/24/2022 11:32 AM, LOCATION ??[facility] INDICATION: 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 [...] history of metastatichigh risk papillary thyroid cancer (mR9dB2pQt - IVb) s/psalvage total thyroidectomyrequiringsacrifice ofrightRLN/tracheal resection/re-anastomosis,bilateral lateraland central neck tlalyhqifeuf00/04/2022with right neck residual/recurrent diseaseand metastases to the [...] the left vertebral artery.The patient presented to [facility] for electiveC2-T2 fusion and decompression C3-C7 and [...] DATE/TIME OF EXAM: 12/24/2022 11:32 AM, LOCATION [facility] 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 eGFR 89(L) >90 mL/min/1.7 3 m2 12/24/2022 11:01 AM CDT [facility] Blood BLOOD SPECIMEN / Unknown 12/24/2022 10:59 AM CDT 12/24/2022 11:01 AM CDT Marcio Mcintosh MD LAB - POINT OF CARE ORDERABLES [facility] [address] [place] [address], [facility] [phone] documented in this encounter Visit Diagnoses Diagnosis Neoplasm of uncertain behavior of skin Thyroid cancer (HCC) Malignant neoplasm of thyroid gland documented in this encounter Administered Medications Inactive Administered Medications - up to 3 most recent administrations Medication Order MAR Action Action Date Dose Rate Site gadobutrol (Gadavist) injection Intravenous, CONTRAST ONCE, Starting on Josi 12/24/22 at 1132, Until 12/25/22 at 0135 $ Given - Contrast 12/24/2022 11:32 AM CDT 6 mL documented in this encounter Care Teams Vegetable Cook Relationship Specialty Start Date End Date Joseph Manzanares MD [address] [place] [phone] PCP - General Internal Medicine 10/07/22 04/20/23 Adriana Adams DO [address] [place] [phone] Resident - PCP Internal Medicine 04/06/22 01/12/23 documented as of this encounter
--- OUTSIDE RECORDS SUMMARY | 2024-07-26 08:29 | XMS_ITS | Encounter Summary ---
Author Organization [facility] Health Address [address] [place] [address] Care Team Providers Care Assistant Tennis Coach Name Role Phone Adriana Adams DO Unavailable Joseph Manzanares MD Primary Care Provider [phone] Encounter Details Date Type Department Care Team [...] st Contact Info) Description 08/02/2024 2:20 PM HOCKEY SCOUT Appointment [facility] [place] [address] 08/02/2024 3:00 PM HOCKEY SCOUT Office Visit [facility] - Hematology/Oncology [address] [place] [phone] Remi Beckett MD [address] [place] [phone] 08/18/2024 1:45 PM HOCKEY SCOUT Office Visit [facility] - ENT [address] [place] [phone] Neri Delgado MD [address] [place] [address] 08/30/2024 2:20 PM HOCKEY SCOUT Appointment [facility] [address] [place] [address] documented as of this encounter Visit Diagnoses Not on filedocumented in this encounter Care Teams Assistant Tennis Coach Relationship Specialty Start Date End Date Joseph Manzanares MD [address] [place] [phone] PCP - General Internal Medicine 10/07/22 04/20/23 Adriana Adams DO [address] [place] [phone] Resident - PCP Internal Medicine 04/06/22 01/12/23 documented as of this encounter
--- OUTSIDE RECORDS SUMMARY | 2024-07-26 08:29 | XMS_ITS | Encounter Summary ---
Author Organization [facility] Health Address [address] [place] [address] Care Team Providers Care Key Attendant Name Role Phone Adriana Adams DO Unavailable Joseph Manzanares MD Primary Care Provider [phone] Reason for Visit * Treatment (Routine) - Closed Specialty Diagnoses / Procedures Referred By Yuan t Referred To Contact Radiology / Pain Management Diagnoses Unilateral primary osteoarthritis, left hip Procedures GA DRAIN/INJECT LARGE JOINT/BURSA Gerard Gallegos MD [address] [place] [phone] [facility] [address] [place] [address] Referral ID Status Reason Start Date Expiration Date Visits Re quested Visits Authorized [id number] Closed 12/10/2022 12/10/2023 1 1 Encounter Details Date Type Department Care Team (Latest Contact Info) Description 12/10/2022 3:06 PM CDT - 12/10/2022 11:59 PM CDT Hospital Encounter [facility] Health Pain Care [address] [address] Gerard Gallegos MD [address] [place] [phone] Discharge Disposition: Home or Self Care [...] headache, or any other problems, please call [phone] or the after hours answering service at [phone] and tell them your physician's name. The exchange willalert the physician underwriting operations manager. May remove band-aid in the morning on [...] A DAY 60 capsule 11 02/22/2022 05/28/2023 DFHTWWV-LOKIGXXXA-RBWN PO Take by mouth once daily 06/13/2023 [...] sprayIndications:Allergi c rhinitis, unspecified seasonality, unspecified trigger [place] 2 (two) sprays into each nostril once daily 48 g 11/25/2022 02/22/2023 XCRUKC-DODQLXNNQ-SFB-C-H YAL PO Take 1 tablet by mouth [...] hip intra-articular steroid injection Gerard Kay MD/PhD Saddle Lining Stitcher [facility] documented in this encounter Procedure Notes * Gerard Gallegos MD - 12/10/2022 11:59 PM CDTAssociated Order(s): PAIN MANAGEMENT PROCEDURE TIME PROCEDURE NOTE - LEFT Hip intra-articular steroid injection Primary pain complaint: Hip Pain Pre-procedure diagnosis: Hip arthritis Post-procedure diagnosis: Same Attending staff: Dr. Gerard Kay MD., Ph.D. Media Services Coordinator: MD Ishaan. The procedure and risks were [...] st Contact Info) Description 08/02/2024 2:20 PM MALT LOADER Appointment [facility] [address] [place] [address] 08/02/2024 3:00 PM MALT LOADER Office Visit [facility] [place] [facility] - Hematology/Oncology [address] [place] [phone] Remi Beckett MD [address] [place] [address] 08/18/2024 1:45 PM MALT LOADER Office Visit [facility] [place] [facility] - ENT [address] [place] [phone] Neri Delgado MD [address] [place] [address] 08/30/2024 2:20 PM MALT LOADER Appointment [facility] [address] [place] [address] documented as of this encounter Procedures Procedure [...] Attending staff: Dr. Gerard Kay MD., Ph.D. Media Services Coordinator: MD Ishaan. The procedure and risks were [...] Hip documented in this encounter Care Teams Key Attendant Relationship Specialty Start Date End Date Joseph Manzanares MD [address] [place] [address] PCP - General Internal Medicine 10/07/22 04/20/23 Adriana Adams DO [address] [place] [phone] Resident - PCP Internal Medicine 04/06/22 01/12/23 documented as of this encounter
--- OUTSIDE RECORDS SUMMARY | 2024-07-26 08:29 | XMS_ITS | Encounter Summary ---
Author Organization [facility] Health Address [address] [facility] [place] [address] Care Team Providers Care Call Specialist Name Role Phone Joseph Manzanares MD Primary Care Provider [phone] Tiana Naylor DO Unavailable [phone] Reason for Visit * Reason Onset Date Comments MEDICATION REFILL 02/16/2023 Encounter Details Date Type Department Care Team (Late st Contact Info) Description 02/16/2023 Refill [facility] - Internal Med [address] [facility], [place] [address] Tiana Naylor DO [address] [facility] [place], [place] [phone] MEDICATION REFILL Social History Tobacco Use Types [...] Date Recorded PHQ2 TOTAL SCORE 1 11/25/2022 [facility] of Occupat ional Health - Occupational [...] Gim Csm 2l 08/12/22 Office Visit Adriana Adams, DO Aff Slu Gim Csm 2l 06/10/22 [...] st Contact Info) Description 08/02/2024 2:20 PM BEE PRODUCER Appointment [address] [address] 08/02/2024 3:00 PM BEE PRODUCER [facility] [address] [place] [address] Remi Beckett MD [address] [place] [phone] 08/18/2024 1:45 PM BEE PRODUCER Office Visit [facility] - ENT [address] [place] [phone] Neri Delgado MD [address] [place] [address] 08/30/2024 2:20 PM BEE PRODUCER Appointment [facility] [address] [place] [address] documented as of this encounter Visit Diagnoses Diagnosis Hyperlipidemia, unspecified hyperlipidemia type documented in this encounter Care Teams Call Specialist Relationship Specialty Start [place] [address] [place] [phone] PCP - General Internal Medicine 10/07/22 04/20/23 Tiana Naylor DO [address] [facility]?? [place] [address] Resident - PCP Internal Medicine 01/13/23 04/20/23 documented as of this encounter
--- OUTSIDE RECORDS SUMMARY | 2024-07-26 08:29 | XMS_ITS | Encounter Summary ---
Author Organization [facility] Health Address [address] [place] [address] Care Team Providers Care Triage Assistant Name Role Phone Joseph Manzanares MD Primary Care Provider Tiana Naylor DO Unavailable [phone] Reason for Visit * Reason Comments Throat Problem * Evaluate (Routine) - Closed Specialty Diagnoses / Procedures Referred By Yuan robins Referred To Contact ENT-Otolaryngology Diagnoses S/P cervical spinal fusion Coy Gómez MD [address] [place] [address] [place] [address] [facility] [address] [place] [phone] Referral ID Status Reason Start Date Expiration Date V isits Requested Visits Authorized [id number] Closed Specialty Services Required 01/20/2023 01/20/2024 1 1 Encounter Details Date Type Department Care Team (Late st Contact Info) Description 01/29/2023 3:30 PM CDT Office Visit [facility] - ENT [address] [place] [phone] Neri Delgado MD [address] [place] [address] Thyroid cancer (HCC) (Primary Dx); S/P [...] 3:24 PM CDT Thank you for visiting [facility] Otolaryngology - Head & Neck Surgery. [...] an appointment, please call our office at [phone] Wednesday through Wednesday from 8:30 am to4:30 pm. You can also request a routine appointment through your [employer] account. Prescription Refills Contact your pharmacy to [...] the medical exchange at and ask the sole leveling machine operator to page the ENT physician director of application development. *Caller ID blocking service will need to be turned off for your call to be returned. We also specialize in Hearing Aids, Allergy testing, swallowing disorders, voice problems, cancer diagnosis, and so much more. Visit our website at [email or web address] for information about our practice and an interactive health encyclopedia. documented in this encounter Progress Notes * Rod Esquivel - 01/29/2023 3:30 PM CDT CC: Chief Complaint Patient presents with ??? Throat Problem Diagnosis: Site: Thyroid Histology: PTC Stage: K7pS3tPw AJCC IVb Details: Positive margins, LVI +, [...] CAPSULE BY MOUTH TWICE A DAY ??? JJSEARL-PAFJMNIUJ-HPQB PO Take by mouth once daily ??? [...] fluticasone propionate (Flonase) 50 MCG/ACT nasal spray Vincent 2 (two) sprays into each nostril once daily ??? gabapentin (Neurontin) 300 MG capsule Take 1 (one) capsule by mouth 3 times daily ??? TLGJYA-JOAUEMZMP-ONO-C-HYAL PO Take 1 tablet by mouth 3 [...] 2% and Stone-Synephrine 1/2% Endoscopy Type: Flexible Efisc-Iohmrgfjxiwrnl-Oqsprmizedbw Procedure Details: Informed consent was obtained. The [...] and right neck mass excision), completion of AWRD, s/p cervical spinal fusion and resection of extramedullary spine tumor. 2. dysphagia, likely multifactorial in origin Disease status: s/p radiation therapy and cervical spinal fusion likely contributing to dysphagia. Discuss with NEON ELECTRICIAN and re-evaluate at follow-up appointment in 6 [...] consideringthe extent of therapy she has underwent. NEON ELECTRICIAN eval today. Can consider MBS to further evaluate or vocal cord injection if symptoms worsen. Neri Delgado MD documented in this encounter Procedure Notes * Neri Delgado MD - 01/29/2023 4:13 PM CDTAssociated Order(s): PROC ENDOSCOPY-LARYNX Procedure(s): OR LARYNGOSCOPY,FLEX FIBER,DIAGNOSTIC Pre-Procedure Diagnose(s): S/P cervical spinal fusion Procedure Note Anesthesia: Lidocaine 2% and Stone-Synephrine 1/2% Endoscopy Type: Flexible Pgbwc-Fhblrieprwifvo-Dvtzeqskfxpy Procedure Details: Informed consent was obtained. The [...] st Contact Info) Description 08/02/2024 2:[address] [facility] [address] [place] [address] 08/02/2024 3:00 PM CARD BOXER Office Visit [facility] - Hematology/Oncology [address] [place] [phone] Remi Beckett MD [address] [place] [phone] 08/18/2024 1:45 PM CARD BOXER Office Visit [facility] - ENT [address] [place] [phone] Neri Delgado MD [address] [place] [address] 08/30/2024 2:20 [address] [facility] [address] [place] [address] documented as of this encounter Procedures Procedure Name Priority Date/Time Associated Diagnosis Comments OR LARYNGOSCOPY,FLEX FIBER,DIAGNOSTIC Routine 01/29/2023 4:13 PM CDT S/P cervical spinal fusion documented in this encounter Results * OR LARYNGOSCOPY,FLEX FIBER,DIAGNOSTIC (01/29/2023 4:13 PM CDT) Narrative Neri Delgado MD - 01/29/2023 4:13 PM CDT Neri Delgado MD ? 01/30/2023 ??7:14 AM Procedure Note Anesthesia: Lidocaine 2% and Stone-Synephrine 1/2% Endoscopy Type: ??Flexible Rhjfs-Ieechjvpqbpkhl-Sdaqkioxeruj Procedure Details: ??Informed consent was obtained. ??The [...] status documented in this encounter Care Teams Triage Assistant Relationship Specialty Start Date End Date Joseph Manzanares MD [address] [place] [address] PCP - General Internal Medicine 10/07/22 04/20/23 Tiana Naylor DO [address] [place] [address] Resident - PCP Internal Medicine 01/13/23 04/20/23 documented as of this encounter
--- OUTSIDE RECORDS SUMMARY | 2024-07-26 08:29 | XMS_ITS | Encounter Summary ---
Author Organization [facility] Health Address [address] [facility] [place] [address] Care Team Providers Care Repairer Welding Systems And Equipment Name Role Phone Rizwanalenny Adriana CHE Unavailable Joseph Manzanares MD Primary Care Provider Tiana Naylor DO Unavailable [phone] Tiana Naylor DO Primary Care Provider [phone] Joseph Manzanares MD Unavailable Yaya Villatoro MD Primary Care Provider [phone] Encounter Details Date Type Department Care Team (Late st Contact Info) Description 12/14/2022 Telephone [facility] - Centralized Scheduling [address] [place] [address] Coy Gómez MD [address] [place] [address] Social History Tobacco Use Types Packs/Day Years [...] Recorded PHQ2 TOTAL SCORE 1 11/25/2022 [facility] [place] of Occupat ional Health - Occupational Stress [...] st Contact Info) Description 08/02/2024 2:20 PM JACK TAMP OPERATOR Appointment [facility] [address] [place] [address] 08/02/2024 3:00 PM JACK TAMP OPERATOR Office Visit [facility] - Hematology/Oncology [address] [place] [phone] Remi Beckett MD [address] [place] [phone] 08/18/2024 1:45 PM JACK TAMP OPERATOR Office Visit [facility] - ENT [address] [place] [phone] Neri Delgado MD [address] [address] 08/30/2024 2:20 PM JACK TAMP OPERATOR Appointment [facility] [address] [place] [address] documented as of this encounter Visit Diagnoses Not on filedocumented in this encounter Care Teams Repairer Welding Systems And Equipment Relationship Specialty Start Date End Date Joseph Manzanares MD [address] [place] [address] PCP - General Internal Medicine 10/07/22 04/20/23 Tiana Naylor DO [address] [place] [address] PCP - General Internal Medicine 04/21/23 05/03/23 Yaya Villatoro MD [address] [phone] PCP - General Internal Medicine 05/04/23 Adriana Adams DO [address] [place] [phone] Resident - PCP Internal Medicine 04/06/22 01/12/23 Tiana Naylor DO [address] [place] [address] Resident - PCP Internal Medicine 01/13/23 04/20/23 Joseph Manzanares MD [address] [place] [phone] Internal Medicine 04/21/23 documented as of this encounter
--- OUTSIDE RECORDS SUMMARY | 2024-07-26 08:29 | XMS_ITS | Encounter Summary ---
Author Organization [facility] Health Address [address] [facility] [place] [address] Care Team Providers Care Green Chain Worker Name Role Phone Joseph Manzanares MD Primary Care Provider [phone] Tiana Naylor DO Unavailable [phone] Encounter Details Date Type Department Care [...] Recorded PHQ2 TOTAL SCORE 1 11/25/2022 [facility] [place] of Occupat ional Health - Occupational Stress [...] st Contact Info) Description 08/02/2024 2:20 PM PERFORMANCE ANALYST Appointment [facility] [place] [address] 08/02/2024 3:00 PM PERFORMANCE ANALYST Office Visit [facility] - Hematology/Oncology [address] [place] [phone] Remi Beckett MD [address] [place] [phone] 08/18/2024 1:45 PM PERFORMANCE ANALYST Office Visit [facility] [address] [place] [phone] Neri Delagdo MD [address] [place] [address] 08/30/2024 2:20 PM PERFORMANCE ANALYST Appointment [facility] [address] [place] [address] documented as of this encounter Visit Diagnoses Not on filedocumented in this encounter Care Teams Green Chain Worker Relationship Specialty Start Date End Date Joseph Manzanares MD [address] [place] [phone] PCP - General Internal Medicine 10/07/22 04/20/23 Tiana Naylor, [address] [facility] [place] [address] Resident - PCP Internal Medicine 01/13/23 04/20/23 documented as of this encounter
--- OUTSIDE RECORDS SUMMARY | 2024-07-26 08:29 | XMS_ITS | Encounter Summary ---
Author Organization [facility] Address [address] [facility] [place] [address] Care Team Providers Care Credit Operations Specialist Name Role Phone Joseph Manzanares MD Primary Care Provider [phone] Tiana Naylor DO Unavailable [phone] Reason for Visit * Radiology Services (Routine) - Closed Specialty Diagnoses / Procedures Referred By Yuan t Referred To Contact Diagnoses Cervical spine tumor Cancer, metastatic to bone (HCC) Thyroid cancer (HCC) Procedures MRI CERVICAL SPINE WWO CONT Marcio Mcintosh MD [address] [place] [address] [phone] Referral ID Status Reason Start Date Expiration Date Visits Re quested Visits Authorized [id number] Closed 03/25/2023 06/23/2023 1 1 Encounter Details Date Type Department Care Team (Latest Contact Info) Description 03/25/2023 11:30 AM CDT - 03/25/2023 12:59 PM T Hospital Encounter [facility] MRI [address] [place] [phone] Marcio Mcintosh MD [address] [place] [address] Discharge Disposition: Home or Self [...] Date Recorded PHQ2 TOTAL SCORE 1 11/25/2022 [facility] [place] of Occupat ional Health - Occupational Stress [...] A DAY 60 capsule 11 02/22/2022 05/28/2023 [id number]-[id number]-[id number] PO Take by mouth once daily 06/13/2023 [...] NOSTRIL EVERY DAY 48 g 02/22/2023 06/01/2023 XANKID-[id number]-OSO-C-H YAL PO Take 1 tablet by mouth 3 times daily 06/13/2023 levothyroxine (Synthroid) 112 MCG tabletIndications:Postop erative hypothyroidism TAKE 1 TABLET BY MOUTH EVERY DAY 90 tablet 4 07/06/2022 06/14/2023 [facility] Natural Products (NEURIVA PO) Take 1 tablet by mouth 2 times daily 06/13/2023 vitamin E (TOCOPHERYL) 200 UNIT capsule Take 1 (one) capsule by mouth 3 times daily 06/13/2023 documented as of this encounter Plan of Treatment Upcoming Encounters Date Type Department Care Team (Late st Contact Info) Description 08/02/2024 2:20 PM PROP SAWYER Appointment [facility] [address] [place] [address] 08/02/2024 3:00 PM PROP SAWYER Office Visit [facility] - Hematology/Oncology [address] [place] [phone] Remi Becektt MD [address] [place] [phone] 08/18/2024 1:45 PM PROP SAWYER Office Visit [facility] - ENT [address] [place] [phone] Neri Delgado MD [address] [place] [address] 08/30/2024 2:20 PM PROP SAWYER Appointment [facility] [address] [place] [address] documented as of this encounter Procedures Procedure [...] Shelli Escamilla MD have personally reviewed and interpreted this examination/study. > Interpreting Provider: Shelli Escamilla MD on 03/26/2023 2:43 PM Narrative 03/26/2023 2:43 PM CDT PROCEDURE: ??MRI CERVICAL SPINE WWO CONT, DATE/TIME OF EXAM: ??03/25/2023 12:55 PM, LOCATION ??[facility] INDICATION: D49.2: Cervical spine tumor C79.51: Cancer, [...] DATE/TIME OF EXAM: 03/25/2023 12:55 PM, LOCATION [facility] INDICATION: D49.2: Cervical spine tumor C79.51: Cancer, [...] - 1.30 mg/dL 03/25/2023 12:27 PM CDT [facility] eGFR 73(L) >90 mL/min/1.7 3 m2 03/25/2023 12:27 PM CDT [facility] Blood BLOOD SPECIMEN / Unknown 03/25/2023 12:24 PM CDT 03/25/2023 12:26 PM CDT Marcio Mcintosh MD LAB - POINT OF CARE ORDERABLES [address] [address], [facility] [phone] documented in this encounter Visit Diagnoses Diagnosis [...] mL documented in this encounter Care Teams Credit Operations Specialist Relationship Specialty Start Date End Date Joseph Manzanares MD [address] [place] [address] PCP - General Internal Medicine 10/07/22 04/20/23 Tiana Naylor DO [address] [place] [address] Resident - PCP Internal Medicine 01/13/23 04/20/23 documented as of this encounter
--- OUTSIDE RECORDS SUMMARY | 2024-07-26 08:29 | XMS_ITS | Encounter Summary ---
Author Organization [facility] Health Address [address] [place] [address] Care Team Providers Care Fingernail Sculptor Name Role Phone Adriana Adams DO Unavailable Joseph Manzanares MD Primary Care Provider [phone] Encounter Details Date Type Department Care Team [...] Contact Info) Description 08/02/2024 2:20 PM NETWORK FIREWALL ENGINEER Appointment [facility] [place] [address] 08/02/2024 3:00 PM NETWORK FIREWALL ENGINEER Office Visit [facility] - Hematology/Oncology [address] [place] [phone] Remi Beckett MD [address] [place] [phone] 08/18/2024 1:45 PM NETWORK FIREWALL ENGINEER Office Visit [facility] - ENT [address] [place] [phone] Neri Delgado MD [address] [place] [address] 08/30/2024 2:20 PM NETWORK FIREWALL ENGINEER Appointment [facility] [address] [place] [address] documented as of this encounter Visit Diagnoses Not on filedocumented in this encounter Care Teams Fingernail Sculptor Relationship Specialty Start Date End Date Joseph Manzanares MD [address] [place] [phone] PCP - General Internal Medicine 10/07/22 04/20/23 Adriana Adams DO [address] [place] [phone] Resident - PCP Internal Medicine 04/06/22 01/12/23 documented as of this encounter
--- OUTSIDE RECORDS SUMMARY | 2024-07-26 08:30 | XMS_ITS | Encounter Summary ---
Author Organization [facility] Address [address] [place] [address] Care Team Providers Care Insurance Account Representative Name Role Phone Adriana Adams DO Unavailable Joseph Manzanares MD Primary Care Provider [phone] Reason for Visit * Auth/Cert (Routine) Specialty Diagnoses / Procedures Referred By Yuan t Referred To Contact Referral ID Status Reason Start Date Expiration Date Visits Re quested Visits Authorized [id number] 1 1 Encounter Details Date Type Department Care Team (Late st Contact Info) Description 11/05/2022 8:00 AM CDT Home Care Visit [facility] at Home Home Health [address] [place] [phone] Kendra Smyth OT OT OASIS DISCHARGE Social [...] Date Recorded PHQ2 TOTAL SCORE 0 09/02/2022 [facility] [place] of Occupat ional Health - Occupational Stress [...] st Contact Info) Description 08/02/2024 2:20 PM BUS PERSON DISHWASHER Appointment [facility] [address] [place] [address] 08/02/2024 3:00 PM BUS PERSON DISHWASHER Office Visit [facility] - Hematology/Oncology [address] [place] [phone] Remi Beckett MD [address] [place] [phone] 08/18/2024 1:45 PM BUS PERSON DISHWASHER Office Visit [facility] - ENT [address] [place] [phone] Neri Delgado MD [address] [place] [address] 08/30/2024 2:20 PM BUS PERSON DISHWASHER Appointment [facility] [address] [place] [address] documented as of this encounter Visit Diagnoses [...] cues. documented in this encounter Care Teams Insurance Account Representative Relationship Specialty Start Date End Date Joseph Manzanares MD [address] [place] [phone] PCP - General Internal Medicine 10/07/22 04/20/23 Adriana Adams DO [address] [place] [phone] Resident - PCP Internal Medicine 04/06/22 01/12/23 documented as of this encounter
--- OUTSIDE RECORDS SUMMARY | 2024-07-26 08:30 | XMS_ITS | Encounter Summary ---
Author Organization [facility] Health Address [address] [place] [address] Care Team Providers Care Entry Level Name Role Phone Adriana Adams DO Unavailable Joseph Manzanares MD Primary Care Provider [phone] Encounter Details Date Type Department Care Team [...] Date Recorded PHQ2 TOTAL SCORE 0 09/02/2022 [facility] [place] of Occupat ional Health - Occupational Stress [...] st Contact Info) Description 08/02/2024 2:20 PM CENSUS TAKER Appointment [facility] [address] [place] [address] 08/02/2024 3:00 PM CENSUS TAKER [facility] - H[facility]ology/Oncology [address] [place] [phone] Remi Beckett MD [address] [place] [phone] 08/18/2024 1:45 PM CENSUS TAKER [facility] [address] [place] [phone] Neri Delgado MD [address] [place] [address] 08/30/2024 2:20 PM CENSUS TAKER Appointment [facility] [address] [place] [address] documented as of this encounter Visit Diagnoses Not on filedocumented in this encounter Care Teams Entry Level Relationship Specialty Start Date End Date Joseph Manzanares MD [address] [place] [phone] PCP - General Internal Medicine 10/07/22 04/20/23 Adriana Adams DO [address] [place] [phone] Resident - PCP Internal Medicine 04/06/22 01/12/23 documented as of this encounter
--- OUTSIDE RECORDS SUMMARY | 2024-07-26 08:30 | XMS_ITS | Encounter Summary ---
Author Organization [facility] Address [address] [facility] [place] [address] Care Team Providers Care Remote Medical Coder Name Role Phone Adriana Adams DO Unavailable Joseph Manzanares MD Primary Care Provider [phone] Reason for Visit * Reason Comments Follow-up Encounter Details Date Type Department Care Team (Late Contact Info) Description 11/25/2022 3:00 PM CDT Office Visit [facility] - Internal Med [address] [place] [phone] Adriana Adams DO [address] [place] [address] Preventative health care (Primary Dx); [...] PHQ2 TOTAL SCORE 1 11/25/2022 [facility] of Occupat ional Health - Occupational Stress [...] Ms. Hogan, You were seen in the [facility] Internal Medicine clinic for follow-up. Below is [...] Adams DO - 11/25/2022 4:03 PM CDT [facility] General Internal Medicine Established Patient Note CC: Chief Complaint Patient presents with ??? Follow-up History of Present Illness: Brisa Hogan is a 62 year old female w/PMHx thyroid cancer presenting to [facility] clinic for establishing care. - 08/2019 thyroid [...] as well 08/12/22: - 07/06/22-07/12/22 admitted to [facility] for UTI, oxybutynin rx'd last visit, and [...] and healing well; currently [place] [facility] [place] Needs mammogram, colonoscopy, well-woman's exam (orders [...] testing: Personally reviewed. Assessment & Plan: # [id number] thyroid cancer (PTC) s/p total thyroidectomy requiring sacrifice of Right RLN/tracheal resection/reanastomosis, bilateral lateral and central neck dissection, and WARD - S/p C2-T2 fusion and decompression C3-C7 and resection extramedullary spine tumor, ??extramedullay tumor at C4,5,6, done 10/2022 Plan: - Follows with endocrine - Receiving [place]ocet from [facility] for recent surgery. Has been taking 1-2 [...] in symptoms Plan: - Continue oxybutynin - Ob-facilities planner follow-up for well-woman exam. Preventative Care/Health Maintenance: [...] st Contact Info) Description 08/02/2024 2:20 PM YEAST CULTURE OPERATOR Appointment [address] [address] 08/02/2024 3:00 PM YEAST CULTURE OPERATOR Office Visit [facility] - Hematology/Oncology [address] [place] [phone] Remi Beckett MD [address] [place] [phone] 08/18/2024 1:45 PM YEAST CULTURE OPERATOR Office Visit [facility] - ENT [address] [place] [address] [phone] Neri Delgado MD [address] [place] [address] 08/30/2024 2:20 PM YEAST CULTURE OPERATOR Appointment [facility] [address] [place] [address] documented as of this encounter Visit Diagnoses Diagnosis Preventative health care- Primary Routine general medical examination at a health care facility Allergic rhinitis, unspecified seasonality, unspecified trigger documented in this encounter Care Teams Remote Medical Coder Relationship Specialty Start Date End Date Joseph Manzanares MD [address] [place] [phone] PCP - General Internal Medicine 10/07/22 04/20/23 Adriana Adams DO [address] [place] [phone] Resident - PCP Internal Medicine 04/06/22 01/12/23 documented as of this encounter
--- OUTSIDE RECORDS SUMMARY | 2024-07-26 08:30 | XMS_ITS | Encounter Summary ---
Author Organization [facility] Health Address [address] [place] [address] Care Team Providers Care Drawbridge Operator Name Role Phone Adriana Adams DO Unavailable Joseph Manzanares MD Primary Care Provider [phone] Encounter Details Date Type Department Care Team [...] Date Recorded PHQ2 TOTAL SCORE 0 09/02/2022 [facility] [place] of Occupat ional Health - Occupational Stress [...] st Contact Info) Description 08/02/2024 2:20 PM MARBLE CHIP TERRAZZO WORKER Appointment [facility] [address] [place] [address] 08/02/2024 3:00 PM MARBLE CHIP TERRAZZO WORKER Office Visit [facility] Group - Hematology/Oncology [address] [place] [phone] Remi Beckett MD [address] [place] [phone] 08/18/2024 1:45 PM MARBLE CHIP TERRAZZO WORKER Office Visit [facility] - ENT [address] [place] [phone] Neri Delgado MD [address] [place] [address] 08/30/2024 2:20 PM MARBLE CHIP TERRAZZO WORKER Appointment [facility] [address] [place] [address] documented as of this encounter Visit Diagnoses Not on filedocumented in this encounter Care Teams Drawbridge Operator Relationship Specialty Start Date End Date Joseph Manzanares MD [address] [place] [phone] PCP - General Internal Medicine 10/07/22 04/20/23 Adriana Adams DO [address] [place] [phone] Resident - PCP Internal Medicine 04/06/22 01/12/23 documented as of this encounter
--- OUTSIDE RECORDS SUMMARY | 2024-07-26 08:30 | XMS_ITS | Encounter Summary ---
Author Organization [facility] Health Address [address] [place] [address] Care Team Providers Care Authorization Nurse Name Role Phone Adriana Adams DO Unavailable Joseph Manzanares MD Primary Care Provider [phone] Encounter Details Date Type Department Care Team [...] st Contact Info) Description 08/02/2024 2:20 PM CUSTOMER SERVICE ATTENDANT Appointment [facility] [place] [address] 08/02/2024 3:00 PM CUSTOMER SERVICE ATTENDANT Office Visit [facility] Group - Hematology/Oncology [address] [place] [phone] Remi Beckett MD [address] [place] [phone] 08/18/2024 1:45 PM CUSTOMER SERVICE ATTENDANT Office Visit [facility] - [facility] [address] [place] [phone] Neri Delgado MD [address] [place] [address] 08/30/2024 2:20 PM CUSTOMER SERVICE ATTENDANT Appointment [facility] [address] [place] [address] documented as of this encounter Visit Diagnoses Not on filedocumented in this encounter Care Teams Authorization Nurse Relationship Specialty Start Date End Date Joseph Manzanares MD [address] [place] [phone] PCP - General Internal Medicine 10/07/22 04/20/23 Adriana Adams DO [address] [place] [phone] Resident - PCP Internal Medicine 04/06/22 01/12/23 documented as of this encounter
--- OUTSIDE RECORDS SUMMARY | 2024-07-26 08:30 | XMS_ITS | Encounter Summary ---
Author Organization [facility] Health Address [address] [place] [address] Care Team Providers Care Licensing Manager Name Role Phone Adriana Adams DO Unavailable Joseph Manzanares MD Primary Care Provider Encounter Details Date [...] st Contact Info) Description 08/02/2024 2:20 PM WOOD MODEL MAKER Appointment [facility] [place] [address] 08/02/2024 3:00 PM WOOD MODEL MAKER Office Visit [facility] Group - Hematology/Oncology [address] [place] [phone] Remi Beckett MD [address] [place] [phone] 08/18/2024 1:45 PM WOOD MODEL MAKER Office Visit [facility] [address] [place] [phone] Neri Delgado MD [address] [place] [address] 08/30/2024 2:20 PM WOOD MODEL MAKER Appointment [facility] [address] [place] [address] documented as of this encounter Visit Diagnoses Not on filedocumented in this encounter Care Teams Licensing Manager Relationship Specialty Start Date End Date Joseph Manzanares MD [address] [place] [phone] PCP - General Internal Medicine 10/07/22 04/20/23 Adriana Adams DO [address] [place] [phone] Resident - PCP Internal Medicine 04/06/22 01/12/23 documented as of this encounter
--- OUTSIDE RECORDS SUMMARY | 2024-07-26 08:30 | XMS_ITS | Encounter Summary ---
Author Organization [facility] Health Address [address] [place] [address] Care Team Providers Care Machine Bookkeeper Name Role Phone Adriana Adams DO Unavailable Joseph Manzanares MD Primary Care Provider [phone] Reason for Visit * Auth/Cert (Routine) Specialty Diagnoses / Procedures Referred By Yuan t Referred To Contact Referral ID Status Reason Start Date Expiration Date Visits Re quested Visits Authorized [id number] 1 1 Encounter Details Date Type Department Care Team (Late st Contact Info) Description 11/03/2022 8:00 AM CDT Home Care Visit [facility] Health at Home Home Health [address] [place] [phone] Kendra Smyth OT OT HOME VISIT Social [...] Date Recorded PHQ2 TOTAL SCORE 0 09/02/2022 [facility] [place] of Occupat ional Health - Occupational Stress [...] She would like the orders sent to [facility] if possible: Fax number is [phone] She is doing well in her home and is compliant with her UE and LE HEP thus far. Thank you for htis referral. Please contact me with any questions or concerns. documented in this encounter Plan of Treatment Upcoming Encounters Date Type Department Care Team (Late st Contact Info) Description 08/02/2024 2:20 PM FINANCE ASSOCIATE Appointment [facility] [address] [place] [address] 08/02/2024 3:00 PM FINANCE ASSOCIATE Office Visit [facility] Group - Hematology/Oncology [address] [place] [phone] Remi Beckett MD [address] [place] [phone] 08/18/2024 1:45 PM FINANCE ASSOCIATE [facility] [address] [place] [phone] Neri Delgado MD [address] [place] [address] 08/30/2024 2:20 PM FINANCE ASSOCIATE Appointment [facility] [address] [place] [address] documented as of this encounter Visit Diagnoses [...] ADLs Progressing No Waiting on patient to pick up truck driver shower bars and sock aide to finish [...] pain/fatigue. documented in this encounter Care Teams Machine Bookkeeper Relationship Specialty Start Date End Date Joseph Manzanares MD [address] [place] [phone] PCP - General Internal Medicine 10/07/22 04/20/23 Adriana Adams DO [address] [place] [address] Resident - PCP Internal Medicine 04/06/22 01/12/23 documented as of this encounter
--- OUTSIDE RECORDS SUMMARY | 2024-07-26 08:30 | XMS_ITS | Encounter Summary ---
Author Organization [facility] Health Address [address] [place] [address] Care Team Providers Care Plug Stitcher Name Role Phone Adriana Adams DO Unavailable Joseph Manzanares MD Primary Care Provider [phone] Reason for Visit * Auth/Cert (Routine) Specialty Diagnoses / Procedures Referred By Yuan t Referred To Contact Referral ID Status Reason Start Date Expiration Date Visits Re quested Visits Authorized [id number] 1 1 Encounter Details Date Type Department Care Team (Late st Contact Info) Description 10/27/2022 9:35 AM CDT Home Care Visit [facility] Health at Home Home Health [address] [place] [phone] Mary Beth Sun, PT PT HOME VISIT [...] Date Recorded PHQ2 TOTAL SCORE 0 09/02/2022 [facility] [place] of Occupat ional Health - Occupational Stress [...] st Contact Info) Description 08/02/2024 2:20 PM PEDIATRIC SPEECH THERAPIST Appointment [facility] [address] [place] [address] 08/02/2024 3:00 PM PEDIATRIC SPEECH THERAPIST Office Visit [facility] - Hematology/Oncology [address] [place] [phone] Remi Beckett MD [address] [place] [address] 08/18/2024 1:45 PM PEDIATRIC SPEECH THERAPIST Office Visit [facility] - ENT [address] [place] [phone] Neri Delgado MD [address] [place] [address] 08/30/2024 2:20 PM PEDIATRIC SPEECH THERAPIST Appointment [facility] [address] [place] [address] documented as of this encounter Visit Diagnoses [...] Disciplines: PT (/Hospice) Decreased bed mobility. 10/14/2022 Resolved on 10/27/2022 [...] scheduled/docume nted intervention Decreased Strength Disciplines: PT (/Hospice) Decreased strength in lower extremities related to [...] in this visit Surgical Wound Disciplines: PT (HH/Hospice) Neck incision-posteri or 10/14/2022 Active 1 goal [...] Orders Description: Leave incision open to air. Jones to be removed at surgeon follow up on 10/21/22. Monitor for s/s infection. Notify surgeon of concerns. Problem:Surgical Wound Completed Incision open to air. Jones removed at MD appointment on 10/21. No s/s infection. Written wound care instructions in home. documented in this encounter Care Teams Plug Stitcher Relationship Specialty Start Date End Date Joseph Manzanares MD [address] [place] [phone] PCP - General Internal Medicine 10/07/22 04/20/23 Adriana Adams DO [address] [place] [address] Resident - PCP Internal Medicine 04/06/22 01/12/23 documented as of this encounter
--- OUTSIDE RECORDS SUMMARY | 2024-07-26 08:30 | XMS_ITS | Encounter Summary ---
Author Organization [facility] Health Address [address] [place] [address] Care Team Providers Care Safety Investigator Name Role Phone Adriana Adams DO Unavailable Joseph Manzanares MD Primary Care Provider [phone] Reason for Visit * Auth/Cert (Routine) Specialty Diagnoses / Procedures Referred By Yuan t Referred To Contact Referral ID Status Reason Start Date Expiration Date Visits Re quested Visits Authorized [id number] 1 1 Encounter Details Date Type Department Care Team (Latest Contact Info) Description 10/30/2022 9:35 AM CDT Home Care Visit [facility] Home Health [address] [place] [phone] Mary Beth Sun, MAXINE PT DISCIPLINE DISCHARGE Social History Tobacco Use [...] Recorded PHQ2 TOTAL SCORE 0 09/02/2022 [facility] [place] of Occupat ional Health - Occupational Stress [...] st Contact Info) Description 08/02/2024 2:20 PM WELDING PANTOGRAPH MACHINE OPERATOR Appointment [facility] [address] [place] [address] 08/02/2024 3:00 PM WELDING PANTOGRAPH MACHINE OPERATOR Office Visit [facility] - Hematology/Oncology [address] [place] [address] Remi Beckett MD [address] [place] [address] 08/18/2024 1:45 PM WELDING PANTOGRAPH MACHINE OPERATOR Office Visit [facility] - ENT [address] [place] [address] [place] [address] [place] [address] 08/30/2024 2:20 PM WELDING PANTOGRAPH MACHINE OPERATOR Appointment [facility] [place] [address] documented as of this encounter Visit Diagnoses Not on filedocumented in this encounter Home Health Visit - Care Plan Visit Details Visit Type -PT Discipline Di joby Discipline -Physical Therapy Problems Problem Description Start [...] this visit Home Exercise Program Disciplines: PT (/Hospice) Requires instruction of home program for therapeutic exercise. 10/14/2022 Resolved on 10/30/2022 1 goal linked to scheduled/docume nted intervention 1 goal intervention scheduled/documen june in this visit Surgical Wound Disciplines: PT (HH/Hospice) Neck incision-posteri or 10/14/2022 Resolved on 10/30/2022 [...] Orders Description: Leave incision open to air. Patterson to be removed at surgeon follow up on 10/21/22. Monitor for s/s infection. Notify surgeon of concerns. Problem:Surgical Wound Completed Incision open to air. Cristhian removed at MD appointment on 10/21. Incision is closed/healed. No s/s infection. Written wound care instructions in home. documented in this encounter Care Teams Safety Investigator Relationship Specialty Start Date End Date Joseph Manzanares MD [address] [place] [phone] PCP - General Internal Medicine 10/07/22 04/20/23 Adriana Adams DO [address] [place] [phone] Resident - PCP Internal Medicine 04/06/22 01/12/23 documented as of this encounter
--- OUTSIDE RECORDS SUMMARY | 2024-07-26 08:30 | XMS_ITS | Encounter Summary ---
Author Organization [facility] Health Address [address] [place] [address] Care Team Providers Care Morning News Anchor Name Role Phone Adriana Adams DO Unavailable Joseph Manzanares MD Primary Care Provider [phone] Encounter Details Date Type Department Care Team [...] Date Recorded PHQ2 TOTAL SCORE 0 09/02/2022 [facility] [place] of Occupat ional Health - Occupational Stress [...] st Contact Info) Description 08/02/2024 2:20 PM FUNCTIONAL ARCHITECT Appointment [facility] [address] [place] [address] 08/02/2024 3:00 PM FUNCTIONAL ARCHITECT [facility]On[facility] [address] [place] [phone] Remi Beckett MD [address] [place] [phone] 08/18/2024 1:45 PM FUNCTIONAL ARCHITECT [facility] [address] [place] [phone] Neri eDlgado MD [address] [place] [address] 08/30/2024 2:20 PM FUNCTIONAL ARCHITECT Appointment [facility] [address] [place] [address] documented as of this encounter Visit Diagnoses Not on filedocumented in this encounter Care Teams Morning News Anchor Relationship Specialty Start Date End Date Joseph Manzanares MD [address] [place] [phone] PCP - General Internal Medicine 10/07/22 04/20/23 Adriana Adams DO [address] [place] [phone] Resident - PCP Internal Medicine 04/06/22 01/12/23 documented as of this encounter
--- OUTSIDE RECORDS SUMMARY | 2024-07-26 08:30 | XMS_ITS | Encounter Summary ---
Author Organization [facility] Health Address [address] [place] [address] Care Team Providers Care Research Rn Spec Name Role Phone Adriana Adams DO Unavailable Joseph Manzanares MD Primary Care Provider [phone] Encounter Details Date Type Department Care Team [...] Date Recorded PHQ2 TOTAL SCORE 0 09/02/2022 [facility] [place] of Occupat ional Health - Occupational Stress [...] st Contact Info) Description 08/02/2024 2:20 PM MOTION PICTURE CRITIC Appointment [facility] [address] [place] [address] 08/02/2024 3:00 PM MOTION PICTURE CRITIC [facility] [address] [place] [phone] Remi Beckett MD [address] [place] [phone] 08/18/2024 1:45 PM MOTION PICTURE CRITIC [facility] [address] [place] [phone] Neri Delgado MD [address] [place] [address] 08/30/2024 2:20 PM MOTION PICTURE CRITIC Appointment [facility] [address] [place] [address] documented as of this encounter Visit Diagnoses Not on filedocumented in this encounter Care Teams Research Rn Spec Relationship Specialty Start Date End Date Joseph Manzanares MD [address] [place] [phone] PCP - General Internal Medicine 10/07/22 04/20/23 Adriana Adams DO [address] [place] [phone] Resident - PCP Internal Medicine 04/06/22 01/12/23 documented as of this encounter
--- OUTSIDE RECORDS SUMMARY | 2024-07-26 08:30 | XMS_ITS | Encounter Summary ---
Author Organization [facility] Health Address [address] [facility] [place] [address] Care Team Providers Care Events Administrative Assistant Name Role Phone Adriana Adams DO Unavailable Joseph Manzanares MD Primary Care Provider [phone] Reason for Visit * Reason Comments Thyroid Problem Thyroid cancerHypoth yroidism Encounter Details Date Type Department Care Team (Latest Contact Info) Description 11/02/2022 10:20 AM CDT Office Visit [facility] Endocrinology, Diabetes and Metabolism [address] [place] [address], [facility] [place] [phone] Yosi Bustamante MD [address] [place] [address] [place] [address] Postoperative hypothyroidism (Primary Dx); Thyroid cancer (HCC); [...] Date Recorded PHQ2 TOTAL SCORE 0 09/02/2022 [facility] of Occupat ional Health - Occupational Stress [...] makethe appointment today, please contact us at [phone]. To make an appointment: Please call us at [phone], option 1. To requesting refills or leaving a message for your doctor, Please call [phone], option 2. This is the option to speak to a nurse if they are available. We request that all prescription refills be requested during regular office phone hours. Phone lines are open from 8:00 am to 4:30 pm Wednesday through Wednesday. Our fax number is [phone]. After hours urgent calls that cannot wait untill phone lines are open on the next are given to the Endocrine physician educational audiologist. Please call [phone] and identify yourself as a patient in our practice with your doctor's name. The plastic cablemaking machine operator will contact the physician educational audiologist. You can g enerally expect a return call within 30 minutes. On weekends, physicians are seeing hospitalized patients and there may be a longer wait. Test and laboratory results: Our practice typically reports lab and test results through letters orMYChart, the [employer] online patient portal. Please allow 5 days from when your tests are completed to receive the results. Visit our website at [email or web address] for additional information about [employer] and an interactive health encyclopedia. PLAN THYROID/NECK [...] 0.9 IU/mL <1.0 <1.0 <1.0 <1.0 <1.0 [facility] Reference Range & Units 03/19/21 11:20 03/21/21 [...] DATE/TIME OF EXAM: 08/19/2022 3:24 PM, LOCATION [facility] INDICATION: E89.0: Postoperative hypothyroidism C73: Thyroid cancer [...] Stress: No Stress Concern Present (10/02/2022) ? [facility] of Occupational Health - Occupational Stress Questionnaire [...] TWICE A DAY, Disp: 60 capsule, Rfl:11 [id number] PO, Take by mouth once daily, Disp: [...] fluticasone propionate (FLONASE) 50 MCG/ACT nasal spray, [place] 2 (two) sprays into each nostril once daily, Disp: 48 g, Rfl: 0 gabapentin (Neurontin) 300 MG capsule, Take 1 (one) capsule by mouth 3 times daily, Disp: 90 capsule, Rfl: 5 [id number]-[id number]-RYB-C-HYAL PO, Take 1 tablet by mouth 3 [...] PROC ULTRASOUND THYROID W/WO FNA BIOPSY Procedure(s): DE US SOFT TISS HEAD&NCK R-T IMG Pre-Procedure [...] st Contact Info) Description 08/02/2024 2:20 PM POLICE DISTRICT SWITCHBOARD OPERATOR Appointment [facility] [address] [place] [address] 08/02/2024 3:00 PM POLICE DISTRICT SWITCHBOARD OPERATOR Office Visit [facility] - Hematology/Oncology [address] [place] [phone] Remi Beckett MD [address] [place] [phone] 08/18/2024 1:45 PM POLICE DISTRICT SWITCHBOARD OPERATOR Office Visit [facility] - ENT [address] [place] [phone] Neri Gallegos MD [address] [place] [address] 08/30/2024 2:20 PM POLICE DISTRICT SWITCHBOARD OPERATOR Appointment [facility] [address] [place] [address] documented as of this encounter Procedures Procedure Name Priority Date/Time Associated Diagnosis Comments DE US SOFT TISS HEAD&NCK R-T IMG Routine 11/02/2022 12:21 PM CDT Postoperative hypothyroidism Thyroid cancer (HCC) Hypocalcemia Other hypoparathyroidism (CMS/HCC) documented in this encounter Results * DE US SOFT TISS HEAD&NCK R-T IMG (11/02/2022 [...] (HCC) documented in this encounter Care Teams Events Administrative Assistant Relationship Specialty Start Date End Date Joseph Manzanares MD [address] [place] [phone] PCP - General Internal Medicine 10/07/22 04/20/23 Adriana Adams DO [address] [place] [phone] Resident - PCP Internal Medicine 04/06/22 01/12/23 documented as of this encounter
--- OUTSIDE RECORDS SUMMARY | 2024-07-26 08:30 | XMS_ITS | Encounter Summary ---
Author Organization [facility] Address [address] [facility] [place] [address] Care Team Providers Care Bowling Ball Assembler Name Role Phone Adriana Adams DO Unavailable Joseph Manzanares MD Primary Care Provider [phone] Reason for Visit * Reason Onset Date Comments MEDICATION REFILL 10/27/2022 Encounter Details Date Type Department Care Team (Late st Contact Info) Description 10/27/2022 Refill [facility] Pediatrics - Neurosurgery [address] [place] [address] Aleena Henry MD [address] [place] [address] MEDICATION REFILL Social History Tobacco Use Types [...] Recorded PHQ2 TOTAL SCORE 0 09/02/2022 [facility] [place] of Occupat ional Health - Occupational Stress [...] Contact Info) Description 08/02/2024 2:20 PM ANIMAL CONTROL SPECIALIST Appointment [facility] [address] [place] [address] 08/02/2024 3:00 PM ANIMAL CONTROL SPECIALIST Office Visit 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
--- OUTSIDE RECORDS SUMMARY | 2024-07-26 08:30 | XMS_ITS | Encounter Summary ---
Author Organization [facility] Health Address [address] [place] [address] Care Team Providers Care Health Center Associate Name Role Phone Adriana Adams DO Unavailable Joseph Manzanares MD Primary Care Provider [phone] Reason for Visit * Reason Comments Pain Hip Shoulder Pain Encounter Details Date Type Department Care Team (Latest Contact Info) Description 11/19/2022 11:30 AM CDT Office Visit [facility] Care [address] [facility] [address] [place] [address] Gerard Gallegos MD [address] [place] [phone] Osteoarthritis of left hip, unspecified osteoarthritis type [...] Date Recorded PHQ2 TOTAL SCORE 0 09/02/2022 [facility] of Occupat ional Health - [...] October 2022 at Location: home visits thr [facility] With improvement in hip pain. Medications tried [...] discuss injections for pain control. Pt ambulates withport bolivar and states walking aggravates her hip. Pt [...] taking:Reported on 11/19/2022) 60 capsule 11 ??? [id number] PO Take by mouth once daily (Patient [...] fluticasone propionate (FLONASE) 50 MCG/ACT nasal spray [place] 2 (two) sprays into each nostril once daily 48 g 0 ??? [id number]-[id number]-[id number]-C-HYAL PO Take 1 tablet by mouth 3 [...] Ht 1.6 m (5' 3) Wt 63 kg (139 lb) Past Results: Recent Labs Component Name [...] of Service => 11/19/22 Gerard Kay MD/PhD Beef Cattle Farm Worker Chronic Pain Management * Heather Hernadez RN [...] October 2022 at Location: home visits thr [facility] With improvement in hip pain. Medications tried for pain management include: Percocet (prescribed after neck surgery, she is out of the medication), Gabapentin, Celebrex, Lidocaine patch . Blood thinners taking currently are:none: documented in this encounter Plan of Treatment Upcoming Encounters Date Type Department Care Team (Late st Contact Info) Description 08/02/2024 2:20 PM OILSEED MEAT PRESSER Appointment [facility] [address] [place] [address] 08/02/2024 3:00 PM OILSEED MEAT PRESSER Office Visit [facility] - Hematology/Oncology [address] [place] [phone] Remi Beckett MD [address] [place] [phone] 08/18/2024 1:45 PM OILSEED MEAT PRESSER Office Visit [facility] - ENT [address] [place] [phone] Neri Delgado MD [address] [place] [address] 08/30/2024 2:20 PM OILSEED MEAT PRESSER Appointment [facility] [address] [place] [address] documented as of this encounter Visit Diagnoses Diagnosis Osteoarthritis of left hip, unspecified osteoarthritis type- Primary Left hip pain Pain in joint, pelvic region and thigh Smoking Tobacco use disorder Greater trochanteric bursitis of left hip Enthesopathy of hip region documented in this encounter Care Teams Health Center Associate Relationship Specialty Start Date End Date Joseph Manzanares MD [facility] [place] [phone] PCP - General Internal Medicine 10/07/22 04/20/23 Adriana Adams DO [address] [place] [phone] Resident - PCP Internal Medicine 04/06/22 01/12/23 documented as of this encounter
--- OUTSIDE RECORDS SUMMARY | 2024-07-26 08:30 | XMS_ITS | Encounter Summary ---
Author Organization [facility] Health Address [address] [place] [address] Care Team Providers Care Java Software Developer Name Role Phone Adriana Adams DO Unavailable Joseph Manzanares MD Primary Care Provider [phone] Encounter Details Date Type Department Care Team (Latest Contact Info) Description 11/02/2022 12:10 PM CDT - 11/02/2022 11:59 PM CDT Hospital Encounter [facility] OP DRAW STATION [address] [place] [phone] Discharge Disposition: Home or Self Care Social [...] Date Recorded PHQ2 TOTAL SCORE 0 09/02/2022 [facility] [place] of Occupat ional Health - Occupational Stress [...] A DAY 60 capsule 11 02/22/2022 05/28/2023 [id number] PO Take by mouth once daily 06/13/2023 [...] fluticasone propionate (FLONASE) 50 MCG/ACT nasal spray [place] 2 (two) sprays into each nostril once daily 48 g 10/20/2021 11/25/2022 gabapentin (Neurontin) 300 MG capsuleIndications:Prima ry osteoarthritis of left hip Take 1 (one) capsule by mouth 3 times daily 90 capsule 5 04/06/2022 11/19/2022 [id number]-FGM-C-H YAL PO Take 1 tablet by mouth [...] st Contact Info) Description 08/02/2024 2:20 PM TOPOGRAPHIC COMPUTATOR Appointment [facility] [address] [place] [address] 08/02/2024 3:00 PM TOPOGRAPHIC COMPUTATOR Office Visit [facility] Group - Hematology/Oncology [address] [place] [address] Remi Beckett MD [address] [place] [address] 08/18/2024 1:45 PM TOPOGRAPHIC COMPUTATOR Office Visit [facility] - ENT [address] [place] [address] [place] [address] [place] [address] 08/30/2024 2:20 PM TOPOGRAPHIC COMPUTATOR Appointment [facility] [address] [place] [address] documented as of this encounter Procedures Procedure [...] Nicotine <5 ng/mL 11/06/2022 12:39 AM CDT [employer] ([facility]) Comment: INTERPRETIVE INFORMATION: Nicotine and Metabolites, ?Serum [...] developed and its performance characteristics determined by [employer]. It has not been cleared or approved by the US Food and Drug Administration. This test was performed in a CLIA certified laboratory and is intended for clinical purposes. Performed By: [place] [address] Problem Manager: Devaughn Dacosta MD, PhD Cotinine 128 ng/mL 11/06/2022 12:39 AM CDT [facility]) Comment: Consistent with use of a nicotine-containing product within 1 week of specimen collection. ??Cotinine is the major metabolite of nicotine. ??The half-life of cotinine is approximately 16 hours. Blood BLOOD SPECIMEN / Unknown Lab Venipuncture / Unknown 11/02/2022 12:46 PM CDT 11/02/2022 1:20 PM CDT Narrative Authorizing Provider Result Gavin Bustamante MD LAB - CHEMISTRY ORD ERABLES [facility]) [address] [place] [address] * TSH REFLEX FREE T4 (11/02/2022 12:46 PM CDT) TSH 1.600 0.350 - 4.940 uIU/mL 11/02/2022 2:12 PM CDT [facility] Blood BLOOD SPECIMEN / Unknown Lab Venipuncture / Unknown 11/02/2022 12:46 PM CDT 11/02/2022 1:25 PM CDT Yosi Bustamante MD LAB - CHEMISTRY ORD ERABLES [place] [id number] [place] [address], [facility] [phone] * (ABNORMAL) THYROGLOBULIN BY ANTONIETA RFLXED (11/02/2022 12:44 PM CDT) Thyroglobulin by ANTONIETA 65.1(H) 1.5 - 38.5 ng/mL 11/03/2022 7:08 PM CDT [facility] ([facility]) Comment: According to the National Academy of [...] is 0.1 ng/mL Thyroglobulin measured by [facility] [place] Immunometric Assay Blood BLOOD SPECIMEN / Unknown Lab Venipuncture / Unknown 11/02/2022 12:44 PM CDT 11/02/2022 1:20 PM CDT Narrative [facility] ([facility]) - 11/03/2022 7:08 PM CDT Performed at: ?? - [facility] [address] [place], [place] ??[id number] Crisis Clinician: Oral Melendez PhD, Phone: ??[phone] Yosi Bustamante MD LAB - CHEMISTRY ORD ERABLES Performing Organization Address City/[facility]/ZIP Co de Phone Number [facility] ([facility]) [address] [place] [address] * THYROGLOBULIN REFLEX PROFILE (11/02/2022 12:44 PM CDT) Thyroglobulin Antibody <1.0 0.0 - 0.9 IU/mL 11/03/2022 7:08 PM CDT [facility] ([facility]) Comment:Thyroglobulin Antibo dy measured by [facility] [employer] Blood BLOOD SPECIMEN / Unknown Lab Venipuncture / Unknown 11/02/2022 12:44 PM CDT 11/02/2022 1:20 PM CDT Narrative [facility] ([facility]) - 11/03/2022 7:08 PM CDT Performed at: ??01 - [facility] [address] [place], [place] ??[id number] Crisis Clinician: Oral Melendez PhD, Phone: ??[phone] Yosi Bustamante MD LAB - CHEMISTRY ORD ERABLES [facility] ([facility]) [address] [place] [address] documented in this encounter Visit Diagnoses Diagnosis Pre-op testing- Primary Preoperative examination, unspecified Postoperative hypothyroidism Postsurgical hypothyroidism Thyroid cancer (HCC) Malignant neoplasm of thyroid gland Hypocalcemia Other hypoparathyroidism (HCC) documented in this encounter Care Teams Java Software Developer Relationship Specialty Start Date End Date Joseph Manzanares MD [address] [place] [phone] PCP - General Internal Medicine 10/07/22 04/20/23 Adriana Adams DO [address] [place] [phone] Resident - PCP Internal Medicine 04/06/22 01/12/23 documented as of this encounter
--- OUTSIDE RECORDS SUMMARY | 2024-07-26 08:30 | XMS_ITS | Encounter Summary ---
Author Organization [facility] Health Address [address] [place] [address] Care Team Providers Care General Assignment Reporter Name Role Phone Adriana Adams DO Unavailable Joseph Manzanares MD Primary Care Provider [phone] Reason for Visit * Auth/Cert (Routine) Specialty Diagnoses / Procedures Referred By Yuan t Referred To Contact Referral ID Status Reason Start Date Expiration Date Visits Re quested Visits Authorized [id number] 1 1 Encounter Details Date Type Department Care Team (Late st Contact Info) Description 10/27/2022 8:00 AM CDT Home Care Visit [facility] Health at Home Home Health [address] [place] [phone] Kendra Smyth OT OT HOME VISIT Social [...] PHQ2 TOTAL SCORE 0 09/02/2022 [facility] [place] of Occupat ional Health - Occupational Stress [...] st Contact Info) Description 08/02/2024 2:20 PM ORNAMENTAL IRONWORKING SUPERVISOR Appointment [facility] [address] [place] [address] 08/02/2024 3:00 PM ORNAMENTAL IRONWORKING SUPERVISOR Office Visit [facility] - Hematology/Oncology [address] [place] [phone] Remi Beckett MD [address] [place] [phone] 08/18/2024 1:45 PM ORNAMENTAL IRONWORKING SUPERVISOR Office Visit [facility] - ENT [address] [place] [phone] Neri Delgado MD [address] [place] [address] 08/30/2024 2:20 PM ORNAMENTAL IRONWORKING SUPERVISOR Appointment [facility] [address] [place] [address] documented as of this encounter Visit Diagnoses [...] the sock aide and grab bars from [facility]. Waiting for sock aid to be [...] thening documented in this encounter Care Teams General Assignment Reporter Relationship Specialty Start Date End Date Joseph Manzanares MD [address] [place] [phone] PCP - General Internal Medicine 10/07/22 04/20/23 Adriana Adams DO [address] [place] [phone] Resident - PCP Internal Medicine 04/06/22 01/12/23 documented as of this encounter
--- OUTSIDE RECORDS SUMMARY | 2024-07-26 08:30 | XMS_ITS | Encounter Summary ---
Author Organization [facility] Health Address [address] [place] [address] Care Team Providers Care Solutions Sales Executive Name Role Phone Adriana Adams DO Unavailable Joseph Manzanares MD Primary Care Provider [phone] Encounter Details Date Type Department Care Team [...] Date Recorded PHQ2 TOTAL SCORE 0 09/02/2022 [facility] [place] of Occupat ional Health - Occupational Stress [...] st Contact Info) Description 08/02/2024 2:20 PM BDR Appointment [facility] [address] [place] [address] 08/02/2024 3:00 PM BDR [facility] - Hematology/Oncology [address] [place] [phone] Remi Beckett MD [address] [place] [phone] 08/18/2024 1:45 PM BDR [facility] [address] [place] [phone] Neri Delgado MD [address] [place] [address] 08/30/2024 2:20 PM BDR Appointment [facility] [address] [place] [address] documented as of this encounter Visit Diagnoses Not on filedocumented in this encounter Care Teams Solutions Sales Executive Relationship Specialty Start Date End Date Joseph Manzanares MD [address] [place] [phone] PCP - General Internal Medicine 10/07/22 04/20/23 Adriana Adams DO [address] [place] [phone] Resident - PCP Internal Medicine 04/06/22 01/12/23 documented as of this encounter
--- OUTSIDE RECORDS SUMMARY | 2024-07-26 08:30 | XMS_ITS | Encounter Summary ---
Author Organization [facility] Health Address [address] [facility] [place] [address] Care Team Providers Care Net Lead Developer Name Role Phone Adriana Adams DO Unavailable Joseph Manzanares MD Primary Care Provider [phone] Encounter Details Date Type Department Care Team (Late st Contact Info) Description 11/19/2022 Orders Only [facility] [address] [place] [phone] Coy Gómez MD [address] [facility] 2L [place] [address] Spinal cord tumor ; S/P cervical spinal [...] Date Recorded PHQ2 TOTAL SCORE 0 09/02/2022 [facility] of Occupat ional Health - [...] st Contact Info) Description 08/02/2024 2:20 PM SANDER PORTABLE MACHINE Appointment [facility] [address] [place] [address] 08/02/2024 3:00 PM SANDER PORTABLE MACHINE Office Visit [facility] - Hematology/Oncology [address] [place] [phone] Remi Beckett MD [address] [place] [phone] 08/18/2024 1:45 PM SANDER PORTABLE MACHINE Office Visit [facility] [address] [place] [phone] Neri Delgado MD [address] [place] [address] 08/30/2024 2:20 PM SANDER PORTABLE MACHINE Appointment [facility] [address] [place] [address] documented as of this encounter Visit Diagnoses Diagnosis 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
--- OUTSIDE RECORDS SUMMARY | 2024-07-26 08:30 | XMS_ITS | Encounter Summary ---
Author Organization [facility] Health Address [address] [place] [address] Care Team Providers Care Director Television Name Role Phone Adriana Adams DO Unavailable Joseph Manzanares MD Primary Care Provider [phone] Encounter Details Date Type Department Care Team (Latest Contact Info) Description 11/19/2022 1:45 PM CDT Office Visit [facility] - Neurosurgery [address] [facility], [place] [address] Merle Parker, GENERAL ENGINEER-SUPPLY OFFICER [address] [place] [address] [place] [address] Spinal cord tumor (Primary Dx); Fusion of [...] PHQ2 TOTAL SCORE 0 09/02/2022 [facility] of Occupat ional Health - Occupational Stress [...] January For any questions call Heather at [phone] documented in this encounter Progress Notes * Merle Parker APRN-CNP - 11/19/2022 1:03 PM CDT Neurosurgery Clinic Progress Note Chief Complaint (CC): Follow up surgery HISTORY OF PRESENT ILLNESS (HPI): Patient is a 62 year old female with a history of 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 The patient presented to [facility] for elective C2-T2 fusion and decompression C3-C7 [...] ??? calcitriol (Rocaltrol) 0.5 MCG capsule ??? [id number]-[id number] PO ??? celecoxib (CeleBREX) 200 MG capsule ??? cetirizine (ZYRTEC) 10 MG tablet ??? clonazePAM (KLONOPIN) 0.5 MG tablet ??? cyclobenzaprine (Flexeril) 5 MG tablet ??? famotidine (PEPCID) 20 MG tablet ??? fish oil/omega-3 fatty acids (PROMEGA;CARDI-OMEGA 3) 1000 MG capsule ??? fluticasone propionate (FLONASE) 50 MCG/ACT nasal spray ??? gabapentin (Neurontin) 300 MG capsule ??? ICEZTR-RFNJQHGSK-OBI-C-HYAL PO ??? levothyroxine (Synthroid) 112 MCG tablet [...] and tone are normal. Deltoid Bicep Tricep Microstrategy Architect Developer Wrist Ext Finger ext Hip Flexor Quad [...] history of metastatic??high risk papillary thyroid cancer ([id number] - IVb) with metastasis to the spine [...] st Contact Info) Description 08/02/2024 2:20 PM THREAD SPOOLER Appointment [facility] [address] [place] [address] 08/02/2024 3:00 PM THREAD SPOOLER Office Visit [facility] - Hematology/Oncology [address] [place] [phone] Remi Beckett MD [address] [place] [phone] 08/18/2024 1:45 PM THREAD SPOOLER Office Visit 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
--- OUTSIDE RECORDS SUMMARY | 2024-07-26 08:30 | XMS_ITS | Encounter Summary ---
Author Organization [facility] Health Address [address] [place] [address] Care Team Providers Care Sap Security Consultant Name Role Phone Adriana Adams DO Unavailable Joseph Manzanares MD Primary Care Provider [phone] Reason for Visit * Auth/Cert (Routine) Specialty Diagnoses / Procedures Referred By Yuan t Referred To Contact Referral ID Status Reason Start Date Expiration Date Visits Re quested Visits Authorized [id number] 1 1 Encounter Details Date Type Department Care Team (Late st Contact Info) Description 10/29/2022 8:00 AM CDT Home Care Visit [facility] Health at Home Home Health [address] [place] [phone] Kendra Smyth OT OT HOME VISIT Social [...] Date Recorded PHQ2 TOTAL SCORE 0 09/02/2022 [facility] [place] of Occupat ional Health - Occupational [...] st Contact Info) Description 08/02/2024 2:20 PM CAR SERVICER Appointment [facility] [address] [place] [address] 08/02/2024 3:00 PM CAR SERVICER Office [facility] - Hematology/Oncology [address] [place] [phone] Remi Beckett MD [address] [place] [phone] 08/18/2024 1:45 PM CAR SERVICER Office Visit [facility] [address] [place] [phone] Neri Delgado MD [address] [place] [address] 08/30/2024 2:20 PM CAR SERVICER Appointment [facility] [address] [place] [address] documented as of this encounter Visit Diagnoses [...] aide is now in and patient to sampler pickup tomorrow. Will f/u next session. Upper Extremity [...] noted. documented in this encounter Care Teams Sap Security Consultant Relationship Specialty Start Date End Date Joseph Manzanares MD [address] [place] [address] PCP - General Internal Medicine 10/07/22 04/20/23 Adriana Adams DO [address] [place] [address] Resident - PCP Internal Medicine 04/06/22 01/12/23 documented as of this encounter
--- OUTSIDE RECORDS SUMMARY | 2024-07-26 08:30 | XMS_ITS | Encounter Summary ---
Author Organization [facility] Health Address [address] [place] [address] Care Team Providers Care Heel Seat Fitter Name Role Phone Adriana Adams DO Unavailable Joseph Manzanares MD Primary Care Provider [phone] Reason for Visit * Reason Comments Refill Request Encounter Details Date Type Department Care Team (Late Contact Info) Description 10/28/2022 Refill [facility] [address] [place] [address], [place] [phone] Yosi Bustamante MD [address] [place] [address] of Endocrinology [place], [place] [phone] Refill Request Social History Tobacco Use Types [...] Date Recorded PHQ2 TOTAL SCORE 0 09/02/2022 [facility] [place] of Occupat ional Health - Occupational Stress [...] st Contact Info) Description 08/02/2024 2:20 PM GUIDE DOG MOBILITY INSTRUCTOR Appointment [facility] [address] [place] [address] 08/02/2024 3:00 PM GUIDE DOG MOBILITY INSTRUCTOR Office Visit [facility] - Hematology/Oncology [address] [place] [phone] Remi Beckett MD [address] [place] [phone] 08/18/2024 1:45 PM GUIDE DOG MOBILITY INSTRUCTOR Office Visit [facility] - ENT [address] [place] [address] Neri Delgado MD [address] [place] [address] 08/30/2024 2:20 PM GUIDE DOG MOBILITY INSTRUCTOR Appointment [facility] [address] [place] [address] documented as of this encounter Visit Diagnoses Diagnosis Postoperative hypothyroidism Postsurgical hypothyroidism Thyroid cancer (HCC) Malignant neoplasm of thyroid gland Hypocalcemia Other hypoparathyroidism (HCC) documented in this encounter Care Teams Heel Seat Fitter Relationship Specialty Start Date End Date Joseph Manzanares MD [facility] [place] [phone] PCP - General Internal Medicine 10/07/22 04/20/23 Adriana Adams DO [address] [place] [phone] Resident - PCP Internal Medicine 04/06/22 01/12/23 documented as of this encounter
--- OUTSIDE RECORDS SUMMARY | 2024-07-26 08:31 | XMS_ITS | Encounter Summary ---
Author Organization [facility] Health Address [address] [place] [address] Care Team Providers Care Edging Supervisor Name Role Phone Adriana Adams DO Unavailable Joseph Manzanares MD Primary Care Provider [phone] Reason for Visit * Auth/Cert (Routine) Specialty Diagnoses / Procedures Referred By Yuan t Referred To Contact Referral ID Status Reason Start Date Expiration Date Visits Re quested Visits Authorized [id number] 1 1 Encounter Details Date Type Department Care Team (Late st Contact Info) Description 10/20/2022 9:45 AM CDT Home Care Visit [facility] Health at Home Home Health [address] [place] [phone] Kendra Smyth OT OT HOME VISIT Social [...] Date Recorded PHQ2 TOTAL SCORE 0 09/02/2022 [facility] [place] of Occupat ional Health - Occupational Stress [...] st Contact Info) Description 08/02/2024 2:20 PM WEATHER STRIPPER Appointment [facility] [address] [place] [address] 08/02/2024 3:00 PM WEATHER STRIPPER Office Visit [facility] - Hematology/Oncology [address] [place] [phone] Remi Beckett MD [address] [place] [phone] 08/18/2024 1:45 PM WEATHER STRIPPER Office Visit [facility] - ENT [address] [place] [phone] Neri Delgado MD [address] [place] [address] 08/30/2024 2:20 PM WEATHER STRIPPER Appointment [facility] [address] [place] [address] documented as of this encounter Visit Diagnoses [...] well. documented in this encounter Care Teams Edging Supervisor Relationship Specialty Start Date End Date Joseph Manzanares MD [address] [place] [phone] PCP - General Internal Medicine 10/07/22 04/20/23 Adriana Adams DO [address] [place] [phone] Resident - PCP Internal Medicine 04/06/22 01/12/23 documented as of this encounter
--- OUTSIDE RECORDS SUMMARY | 2024-07-26 08:31 | XMS_ITS | Encounter Summary ---
Author Organization [facility] Health Address [address] [place] [place] [address] Care Team Providers Care Editing Internship Name Role Phone Adriana Adams DO Unavailable Joseph Manzanares MD Primary Care Provider [phone] Reason for Visit * Reason Onset Date Comments Courtesy Visit 10/15/2022 Tuck in call att empted Encounter Details Date Type Department Care Team (Late st Contact Info) Description 10/15/2022 Telephone [facility] at Home Scheduling [address] [place] [address] Emily Montaño Courtesy Visit (Tuck [...] Date Recorded PHQ2 TOTAL SCORE 0 09/02/2022 [facility] [place] of Occupat ional Health - Occupational Stress [...] Emily Montaño - 10/15/2022 10:45 AM CDT Tuck in call attempted. Called home number - reached patient's who stated patient was sleeping. was not at SOC visit and unable to provide answers to follow up questions. Time permitting, office to call back later. documented in this encounter Plan of Treatment Upcoming Encounters Date Type Department Care Team (Late st Contact Info) Description 08/02/2024 2:20 PM PUMP HOUSE TECHNICIAN Appointment [facility] [address] [place] [address] 08/02/2024 3:00 PM PUMP HOUSE TECHNICIAN Office Visit [facility] - Hematology/Oncology [address] [place] [phone] Remi Beckett MD [address] [place] [phone] 08/18/2024 1:45 PM PUMP HOUSE TECHNICIAN Office Visit [facility] E[facility] [address] [place] [phone] Neri Delgado MD [address] [place] [address] 08/30/2024 2:20 PM PUMP HOUSE TECHNICIAN Appointment [facility] [address] [place] [address] documented as of this encounter Visit Diagnoses Not on filedocumented in this encounter Care Teams Editing Internship Relationship Specialty Start Date End Date Joseph Manzanares MD [address] [place] [phone] PCP - General Internal Medicine 10/07/22 04/20/23 Adriana Adams DO [address] [place] [address] Resident - PCP Internal Medicine 04/06/22 01/12/23 documented as of this encounter
--- OUTSIDE RECORDS SUMMARY | 2024-07-26 08:31 | XMS_ITS | Encounter Summary ---
Author Organization [facility] Health Address [address] [place] [address] Care Team Providers Care Office Copy Selector Name Role Phone Adriana Adams DO Unavailable Joseph Manzanares MD Primary Care Provider [phone] Encounter Details Date Type Department Care Team [...] Date Recorded PHQ2 TOTAL SCORE 0 09/02/2022 [facility] [place] of Occupat ional Health - Occupational Stress [...] st Contact Info) Description 08/02/2024 2:20 PM PROJECT ENG Appointment [facility] [address] [place] [address] 08/02/2024 3:00 PM PROJECT ENG [facility]Oncology [address] [place] [phone] Remi Beckett MD [address] [place] [phone] 08/18/2024 1:45 PM PROJECT ENG [facility] [address] [place] [phone] Neri Delgado MD [address] [place] [address] 08/30/2024 2:20 PM PROJECT ENG Appointment [facility] [address] [place] [address] documented as of this encounter Visit Diagnoses Not on filedocumented in this encounter Care Teams Office Copy Selector Relationship Specialty Start Date End Date Joseph Manzanares MD [address] [place] [phone] PCP - General Internal Medicine 10/07/22 04/20/23 Adriana Adams DO [address] [place] [phone] Resident - PCP Internal Medicine 04/06/22 01/12/23 documented as of this encounter
--- OUTSIDE RECORDS SUMMARY | 2024-07-26 08:31 | XMS_ITS | Encounter Summary ---
Author Organization [facility] Address [address] [place] [address] Care Team Providers Care Certified Juvenile Probation Officer Name Role Phone Adriana Adams DO Unavailable Joseph Manzanares MD Primary Care Provider [phone] Reason for Visit * Reason Onset Date Comments MEDICATION REFILL 10/12/2022 Encounter Details Date Type Department Care Team (Late st Contact Info) Description 10/12/2022 Telephone Transitional Care at [address] [phone] Nereida Anaya RN MEDICATION REFILL Social History Tobacco Use Types [...] Date Recorded PHQ2 TOTAL SCORE 0 09/02/2022 [facility] [place] of Occupat ional Health - Occupational Stress [...] st Contact Info) Description 08/02/2024 2:20 PM SEO COORDINATOR Appointment [facility] [address] [place] [address] 08/02/2024 3:00 PM SEO COORDINATOR Office Visit [facility] Group - Hematology/Oncology [address] [place] [phone] Remi Beckett MD [address] [place] [phone] 08/18/2024 1:45 PM SEO COORDINATOR Office Visit [facility] [address] [place] [phone] Neri Delgado MD [address] [place] [address] 08/30/2024 2:20 PM SEO COORDINATOR Appointment [facility] [address] [place] [address] documented as of this encounter Visit Diagnoses Diagnosis 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
--- OUTSIDE RECORDS SUMMARY | 2024-07-26 08:31 | XMS_ITS | Encounter Summary ---
Author Organization [facility] Health Address [address] [facility] [place] [address] Care Team Providers Care Residential Specialist Name Role Phone Adriana Adams DO Unavailable Joseph Manzanares MD Primary Care Provider [phone] Reason for Visit * Reason Onset Date Comments Home Health 10/07/2022 Encounter Details Date Type Department Care Team (Late Contact Info) Description 10/07/2022 Telephone [facility] General Internal Medicine [address] [place] [address], [place] [address] Taniya Grimes MD [address] [place] [address] OF [facility] [place] [address] Home Health Social History Tobacco [...] Date Recorded PHQ2 TOTAL SCORE 0 09/02/2022 [facility] [place] of Occupat ional Health - Occupational Stress [...] and relayed message: Joseph Manzanares MD You; Rizwanalenny, Adriana, DO 5 minutes ago (3:04 PM) [place] That's fine, will follow * Telephone Encounter - Esther Branch RN - 10/07/2022 2:47 PM CDT Bina with [facility] Home health calling asking the PCP/Dr. Manzanares to follow home health orders-PT/OT services are ordered at this time. Pt was discharged from [facility] today. Has the F2F documentation. Please advise. CB: [phone] documented in this encounter Plan of Treatment Upcoming Encounters Date Type Department Care Team (Late st Contact Info) Description 08/02/2024 2:20 PM PHYSICAL EDUCATION TEACHER Appointment [facility] [address] [place] [address] 08/02/2024 3:00 PM PHYSICAL EDUCATION TEACHER Office Visit [facility] - Hematology/Oncology [address] [place] [phone] Remi Beckett MD [address] [place] [phone] 08/18/2024 1:45 PM PHYSICAL EDUCATION TEACHER Office Visit [facility] - ENT [address] [place] [phone] Neri Delgado MD [address] [place] [address] 08/30/2024 2:20 PM PHYSICAL EDUCATION TEACHER Appointment [facility] [address] [place] [address] documented as of this encounter Visit Diagnoses Not on filedocumented in this encounter Care Teams Residential Specialist Relationship Specialty Start Date End Date Joseph Manzanares MD [address] [place] [phone] PCP - General Internal Medicine 10/07/22 04/20/23 Adriana Adams DO [address] [place] [phone] Resident - PCP Internal Medicine 04/06/22 01/12/23 documented as of this encounter
--- OUTSIDE RECORDS SUMMARY | 2024-07-26 08:31 | XMS_ITS | Encounter Summary ---
Author Organization [facility] Health Address [address] [facility] [place] [address] Care Team Providers Care Glassware Maker Name Role Phone Adriana Adams DO Unavailable Joseph Manzanares MD Primary Care Provider [phone] Reason for Visit * Auth/Cert (Routine) Specialty Diagnoses / Procedures Referred By Contac t Referred To Contact Referral ID Status Reason Start Date Expiration Date Visits Re quested Visits Authorized [id number] 1 1 Encounter Details Date Type Department Care Team (Latest Contact Info) Description 10/14/2022 10:30 AM CDT Home Care Visit [facility] Health at Home Home Health [address] [place] [phone] Anaya Bach, PRESSER AND BLOCKER KNITTED GOODS-RECYCLING DIRECTOR [address] [place] [address] Waleska White, PT PT OASIS START OF [...] Date Recorded PHQ2 TOTAL SCORE 0 09/02/2022 [facility] of Occupat ional [facility] - Occupational Stress Questionnaire Answer Date [...] health physical therapy s/p hospitalization at [facility] from 10/02/22 - 10/07/22 s/p C2-T2 fusion [...] Contact Info) Description 08/02/2024 2:20 PM CORPORATE LEGAL MANAGER Appointment [facility] [address] [place] [address] 08/02/2024 3:00 PM CORPORATE LEGAL MANAGER Office Visit [facility] - Hematology/Oncology [address] [place] [phone] Remi Beckett MD [address] [place] [phone] 08/18/2024 1:45 PM CORPORATE LEGAL MANAGER Office Visit [facility] - ENT [address] [place] [phone] Neri Delgado MD [address] [place] [address] 08/30/2024 2:20 PM CORPORATE LEGAL MANAGER Appointment [facility] [address] [place] [address] Scheduled Referrals Name Type Priority Associated Diagnoses [...] june in this visit Pain Disciplines: PT (HH/Hospice) Acute pain of grade 6 on a [...] scheduled/documen june intervention Decreased Strength Disciplines: PT (/Hospice) Decreased [...] understanding documented in this encounter Care Teams Glassware Maker Relationship Specialty Start Date End Date Joseph Manzanares MD [address] [place] [phone] PCP - General Internal Medicine 10/07/22 04/20/23 Adriana Adams DO [address] [place] [phone] Resident - PCP Internal Medicine 04/06/22 01/12/23 documented as of this encounter
--- OUTSIDE RECORDS SUMMARY | 2024-07-26 08:31 | XMS_ITS | Encounter Summary ---
Author Organization [facility] Health Address [address] [place] [address] Care Team Providers Care Gis Analyst Developer Name Role Phone Adriana Adams DO Unavailable Joseph Manzanares MD Primary Care Provider [phone] Reason for Visit * Auth/Cert (Routine) Specialty Diagnoses / Procedures Referred By Yuan t Referred To Contact Referral ID Status Reason Start Date Expiration Date Visits Re quested Visits Authorized [id number] 1 1 Encounter Details Date Type Department Care Team (Late st Contact Info) Description 10/23/2022 9:35 AM CDT Home Care Visit [facility] Health at Home Home Health [address] [place] [phone] Mary Beth Sun, PT PT HOME VISIT [...] Date Recorded PHQ2 TOTAL SCORE 0 09/02/2022 [facility] [place] of Occupat ional Health - Occupational Stress [...] st Contact Info) Description 08/02/2024 2:20 PM ANALYTICS INTERN Appointment [facility] [address] [place] [address] 08/02/2024 3:00 PM ANALYTICS INTERN Office Visit [facility] - Hematology/Oncology [address] [place] [phone] [place] [address] [place] [phone] 08/18/2024 1:45 PM ANALYTICS INTERN Office Visit [facility] - ENT [address] [place] [address] Neri Delgado MD [address] [place] [address] 08/30/2024 2:20 PM ANALYTICS INTERN Appointment [facility] [address] [place] [address] documented as of this encounter Visit Diagnoses [...] home. documented in this encounter Care Teams Gis Analyst Developer Relationship Specialty Start Date End Date Joseph Manzanares MD [address] [place] [phone] PCP - General Internal Medicine 10/07/22 04/20/23 Adriana Adams DO [address] [place] [phone] Resident - PCP Internal Medicine 04/06/22 01/12/23 documented as of this encounter
--- OUTSIDE RECORDS SUMMARY | 2024-07-26 08:31 | XMS_ITS | Encounter Summary ---
Author Organization [facility] Health Address [address] [place] [place] [address] Care Team Providers Care Ethylbenzene Converter Helper Name Role Phone Adriana Adams DO Unavailable Joseph Manzanares MD Primary Care Provider [phone] Reason for Visit * Auth/Cert (Routine) Specialty Diagnoses / Procedures Referred By Yuan t Referred To Contact Referral ID Status Reason Start Date Expiration Date Visits Re quested Visits Authorized [id number] 1 1 Encounter Details Date Type Department Care Team (Late st Contact Info) Description 10/21/2022 Home Care Visit [facility] Home Health [address] [place] [address] Kendra Smyth, OT CARE CONFERENCE [...] st Contact Info) Description 08/02/2024 2:20 PM GEOPOLITICS TEACHER Appointment [facility] [address] [place] [address] 08/02/2024 3:00 PM GEOPOLITICS TEACHER Office Visit [facility] - Hematology/Oncology [address] [place] [phone] Remi Beckett MD [address] [place] [phone] 08/18/2024 1:45 PM GEOPOLITICS TEACHER Office Visit [facility] - ENT [address] [place] [phone] Neri Delgado MD [address] [place] [address] 08/30/2024 2:20 PM GEOPOLITICS TEACHER Appointment [facility] [address] [place] [address] documented as of this encounter Visit Diagnoses [...] Scheduled documented in this encounter Care Teams Ethylbenzene Converter Helper Relationship Specialty Start Date End Date Joseph Manzanares MD [address] [place] [phone] PCP - General Internal Medicine 10/07/22 04/20/23 Adriana Adams DO [address] [place] [phone] Resident - PCP Internal Medicine 04/06/22 01/12/23 documented as of this encounter
--- OUTSIDE RECORDS SUMMARY | 2024-07-26 08:31 | XMS_ITS | Encounter Summary ---
Author Organization [facility] Health Address [address] [place] [address] Care Team Providers Care Project Safety Manager Name Role Phone Adriana Adams DO Unavailable Joseph Manzanares MD Primary Care Provider [phone] Encounter Details Date Type Department Care Team [...] Date Recorded PHQ2 TOTAL SCORE 0 09/02/2022 [facility] [place] of Occupat ional Health - Occupational Stress [...] st Contact Info) Description 08/02/2024 2:20 PM TOOLING SUPERVISOR Appointment [facility] [address] [place] [address] 08/02/2024 3:00 PM TOOLING SUPERVISOR [facility] - Hematology/Oncology [address] [place] [phone] Remi Beckett MD [address] [place] [phone] 08/18/2024 1:45 PM TOOLING SUPERVISOR [facility] ENT [address] [place] [phone] Neri Delgado MD [address] [place] [address] 08/30/2024 2:20 PM TOOLING SUPERVISOR Appointment [facility] [address] [place] [address] documented as of this encounter Visit Diagnoses Not on filedocumented in this encounter Care Teams Project Safety Manager Relationship Specialty Start Date End Date Joseph Manzanares MD [address] [place] [phone] PCP - General Internal Medicine 10/07/22 04/20/23 Adriana Adams DO [address] [place] [phone] Resident - PCP Internal Medicine 04/06/22 01/12/23 documented as of this encounter
--- OUTSIDE RECORDS SUMMARY | 2024-07-26 08:31 | XMS_ITS | Encounter Summary ---
Author Organization [facility] Health Address [address] [place] [address] Care Team Providers Care Fowl Blood Tester Name Role Phone Adriana Adams DO Unavailable Joseph Manzanares MD Primary Care Provider [phone] Reason for Visit * Auth/Cert (Routine) Specialty Diagnoses / Procedures Referred By Yuan t Referred To Contact Referral ID Status Reason Start Date Expiration Date Visits Re quested Visits Authorized [id number] 1 1 Encounter Details Date Type Department Care Team (Late st Contact Info) Description 10/15/2022 Home Care Visit [facility] Health [address] [place] [address] Rocio Ignacio, RN CASE COMMUNICATION [...] Date Recorded PHQ2 TOTAL SCORE 0 09/02/2022 [facility] of Occupat ional Health [...] st Contact Info) Description 08/02/2024 2:20 PM PIPE INSULATOR HELPER Appointment [facility] [address] [place] [address] 08/02/2024 3:00 PM PIPE INSULATOR HELPER Office Visit [facility] - Hematology/Oncology [address] [place] [phone] Remi Beckett MD [address] [place] [phone] 08/18/2024 1:45 PM PIPE INSULATOR HELPER Office Visit [facility] - ENT [address] [place] [phone] Neri Delgado MD [address] [place] [address] 08/30/2024 2:20 PM PIPE INSULATOR HELPER Appointment [facility] [address] [place] [address] documented as of this encounter Visit Diagnoses [...] Scheduled documented in this encounter Care Teams Fowl Blood Tester Relationship Specialty Start Date End Date Joseph Manzanares MD [address] [place] [phone] PCP - General Internal Medicine 10/07/22 04/20/23 Adriana Adams DO [address] [place] [phone] Resident - PCP Internal Medicine 04/06/22 01/12/23 documented as of this encounter
--- OUTSIDE RECORDS SUMMARY | 2024-07-26 08:31 | XMS_ITS | Encounter Summary ---
Author Organization [facility] Health Address [address] [place] [address] Care Team Providers Care Supervisor Orchard Name Role Phone Adriana Adams DO Unavailable Joseph Manzanares MD Primary Care Provider Encounter Details Date Type Department Care Team (Late st Contact Info) Description 10/08/2022 Home Care Visit [facility] Health [address] [place] [address] Mary Beth Sun, PT CASE [...] Date Recorded PHQ2 TOTAL SCORE 0 09/02/2022 [facility] [place] of Occupat ional Health - Occupational Stress [...] st Contact Info) Description 08/02/2024 2:20 PM CREDIT RELATIONSHIP MANAGER Appointment [address] [address] 08/02/2024 3:00 PM CREDIT RELATIONSHIP MANAGER Office Visit [facility] - Hematology/Oncology [address] [place] [phone] Remi Beckett MD [address] [place] [phone] 08/18/2024 1:45 PM CREDIT RELATIONSHIP MANAGER Office Visit [facility] - ENT [address] [place] [phone] Neri Delgado MD [address] [place] [address] 08/30/2024 2:20 PM CREDIT RELATIONSHIP MANAGER Appointment [facility] [address] [place] [address] documented as of this encounter Visit Diagnoses Not on filedocumented in this encounter Care Teams Supervisor Orchard Relationship Specialty Start Date End Date Joseph Manzanares MD [address] [place] [phone] PCP - General Internal Medicine 10/07/22 04/20/23 Adriana Adams DO [address] [place] [phone] Resident - PCP Internal Medicine 04/06/22 01/12/23 documented as of this encounter
--- OUTSIDE RECORDS SUMMARY | 2024-07-26 08:31 | XMS_ITS | Encounter Summary ---
Author Organization [facility] Address [address] [facility] [place] [address] Care Team Providers Care Concrete Wall Grinder Operator Name Role Phone Adriana Adams DO Unavailable Joseph Manzanares MD Primary Care Provider Reason for Visit * Reason Comments Hospital Discharge Encounter Details Date Type Department Care Team (Latest Contact Info) Description 10/21/2022 1:00 PM CDT Office Visit [facility]itional [facility] at [address] [phone] Intradural extramedullary spinal tumor (Primary [...] Date Recorded PHQ2 TOTAL SCORE 0 09/02/2022 [facility] [place] of Occupat ional Health - Occupational Stress [...] vaccine shamir with no appointment necessary at [facility] ([facility]) Outpatient Pharmacy: [address] [place] [address]. . Shingles Shot (Shingrix): For those over the age of 50, a 2-dose series should be given 2-6 months apart regardless of previous shingles outbreak or previously received older formulation of vaccine (Zostavax) Today you were given: Shingrix (shingles) COVID bivalent booster documented in this encounter Progress Notes * Marlena Yao PharmD - 10/21/2022 2:00 PM CDT [facility] Medication Reconciliation Note: Clarified [...] 1 CAPSULE BY MOUTH TWICE A DAY [id number]-[id number] PO Take by mouth once daily [START [...] fluticasone propionate (FLONASE) 50 MCG/ACT nasal spray Manly 2 (two) sprays into each nostril oncedaily gabapentin (Neurontin) 300 MG capsule Take 1 (one) capsule by mouth 3 times daily HGKOXA-ANORUMIYU-SGX-C-HYAL PO Take 1 tablet by mouth 3 [...] by: Marlena Yao PharmD 10/21/22 2:[address] [facility] Vaccination Note: Brisa Hogan is a 62 year old female who was screened for vaccination needs. The patient was provided education regarding need for: COVID booster (Pfizer/Moderna) and Shingles vaccine (Shingrix) vaccine(s). Patient was given COVID booster (Pfizer/Moderna) and Shingles vaccine (Shingrix) vaccine(s) by [facility]. Patient experienced [...] Assessment and Plan: #Metastatic??high risk papillary thyroid cancer??(gP6mS3oKi - IVb) s/p??salvage total thyroidectomyand neck dissection??on??02/05/2022 [...] PM Appointment with Mary Beth Sun at [facility] Scheduling ([phone]) [address] [facility] [address] October TBD Appointment with Kendra Smyth at [facility] Scheduling ([phone]) [address] [facility] [address] Sunday October 23, 2022 TBD Appointment with Mary Beth Sun at [facility] Scheduling ([phone]) [address] [place] [address] Thursday October 27, 2022 TBD Appointment with Kendra Smyth at [facility] Scheduling ([phone]) [address] [facility] [address] Thursday October 27, 2022 TBD Appointment with Mary Beth Sun at [facility] Scheduling ([phone]) [address] [place] [address] October TBD Appointment with Kendra Smyth at [facility] Scheduling ([phone]) [address] [facility] [address] Sunday October 30, 2022 TBD Appointment with Mary Beth Sun at [facility] Scheduling ([phone]) [address] [facility] [address] Wednesday November 02, 2022 10:20 AM Appointment with Yosi Bustamante at [facility] Endocrinology, Diabetes and Metabolism ([phone]) [address] [place] [phone] Thursday November 03, 2022 TBD Appointment with Kendra Smyth at [facility] Scheduling ([phone]) [address] [facility] [address] November TBD Appointment with Kendra Smyth at [facility] Scheduling ([phone]) [address] [facility] [address] November 3:15 PM Appointment with Merle Parker at [facility] Neurosurgery ([phone]) [address] [facility] [address] November 11:30 AM Appointment with Gerard Gallegos at [facility] Medical Group ([phone]) 10[address] [facility] [address] [facility] [address] Friday November 25, 2022 3:00 PM Appointment with Adriana Adams at [facility] General Internal Medicine ([phone]) [address] [facility] [address] December 10:30 AM Appointment with [facility] MRI SCANNER 3 1.5T at [facility] MRI ([phone]) [address] [facility] [address] December 11:30 AM Appointment with Marcio Mcintosh at [facility] RAD ONC ([phone]) [address] [facility] [address] Complexity of Medical Decision-Making: moderate Subjective: Brisa Hogan is an 62 year old female who presents for follow up after planned hospital admission for cervical extramedullary tumor dissection with [facility] neurosurgery. Procedure was tolerated well and she [...] least 2 attempts): 10/12, 10/20 Date of Bvjt-bw-Qpki Visit: 10/21/2022 Database Coordinator used: N (Y/N) If yes, Database Coordinator Name/ID#: n/a Previous Report(s) Reviewed: office notes, operative report, lab reports, xray reports Hospital discharge summary Brief hospital course adapted from [facility] MD:10/02/22 - 10/07/22 62 year old??female??with??metastatic??high risk papillary thyroid cancer??(xZ0iU5gSx - IVb) s/p??salvage total thyroidectomy and neck dissection??on??02/05/2022??with right neck residual/recurrent disease??and metastases to the spine??s/p revision right central neck dissection. She underwent C2-H8djuoob and decompression C3-C7 and resection extramedullary spine [...] TWICE A DAY 60 capsule 11 ??? HCODYSO-ABHKKMUSI-UFLC PO Take by mouth once daily ??? [...] fluticasone propionate (FLONASE) 50 MCG/ACT nasal spray Manly 2 (two) sprays into each nostril once daily 48 g 0 ??? gabapentin (Neurontin) 300 MG capsule Take 1 (one) capsule by mouth 3 times daily 90 capsule 5 ??? PLLBQB-LZGKCBCNY-XUD-C-HYAL PO Take 1 tablet by mouth 3 [...] baseline. Sensory: No sensory deficit. Lab Preference: [address] [address] Samantha Ambrocio PA-C 10/21/2022 documented in this encounter Plan of Treatment Upcoming Encounters Date Type Department Care Team (Late st Contact Info) Description 08/02/2024 2:20 PM SHEET ROCK TAPER HELPER Appointment [facility] [address] [place] [address] 08/02/2024 3:00 PM SHEET ROCK TAPER HELPER Office Visit [facility] - Hematology/Oncology [address] [place] [address] Remi Beckett MD [address] [place] [address] 08/18/2024 1:45 PM SHEET ROCK TAPER HELPER Office Visit 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
--- OUTSIDE RECORDS SUMMARY | 2024-07-26 08:31 | XMS_ITS | Encounter Summary ---
Author Organization [facility] Health Address [address] [place] [address] Care Team Providers Care And Taxi Instructor Bus Trolley Name Role Phone Adriana Adams DO Unavailable Joseph Manzanares MD Primary Care Provider [phone] Reason for Visit * Auth/Cert (Routine) Specialty Diagnoses / Procedures Referred By Yuan t Referred To Contact Referral ID Status Reason Start Date Expiration Date Visits Re quested Visits Authorized [id number] 1 1 Encounter Details Date Type Department Care Team (Late st Contact Info) Description 10/15/2022 Home Care Visit [facility] [address] [place] [address] Waleska White, PT CASE COMMUNICATION [...] Date Recorded PHQ2 TOTAL SCORE 0 09/02/2022 [facility] Occupat ional Health - [...] st Contact Info) Description 08/02/2024 2:20 PM AUDITOR INTERNAL Appointment [facility] [address] [place] [address] 08/02/2024 3:00 PM AUDITOR INTERNAL Office Visit [facility] - Hematology/Oncology [address] [place] [phone] Remi Beckett MD [address] [place] [phone] 08/18/2024 1:45 PM AUDITOR INTERNAL Office Visit [facility] - ENT [address] [place] [phone] Neri Delgado MD [address] [place] [address] 08/30/2024 2:20 PM AUDITOR INTERNAL Appointment [facility] [address] [place] [address] documented as of this encounter Visit Diagnoses [...] Scheduled documented in this encounter Care Teams And Taxi Instructor Bus Trolley Relationship Specialty Start Date End Date Joseph Manzanares MD [address] [place] [phone] PCP - General Internal Medicine 10/07/22 04/20/23 Adriana Adams DO [address] [place] [phone] Resident - PCP Internal Medicine 04/06/22 01/12/23 documented as of this encounter
--- OUTSIDE RECORDS SUMMARY | 2024-07-26 08:31 | XMS_ITS | Encounter Summary ---
Author Organization [facility] Health Address [address] [place] [address] Care Team Providers Care Fabricator Assembler Metal Products Name Role Phone Adriana Adams DO Unavailable Joseph Manzanares MD Primary Care Provider [phone] Reason for Visit * Auth/Cert (Routine) Specialty Diagnoses / Procedures Referred By Yuan t Referred To Contact Referral ID Status Reason Start Date Expiration Date Visits Re quested Visits Authorized [id number] 1 1 Encounter Details Date Type Department Care Team (Latest Contact Info) Description 10/14/2022 10:25 AM CDT Home Care Visit [facility] [address] [place] [phone] Kendra Smyth, ADITYA OT INITIAL EVALUATION Social [...] Date Recorded PHQ2 TOTAL SCORE 0 09/02/2022 [facility] of Occupat ional Health - Occupational [...] Patient referred to OT s/p hospitalization at [facility] 10/02-10/07 for C2-T2 fusion and decomp c3-c7. Hx of thryoid ca dx in 2019; thyroidectomy [id number]; then began to lose function in L [...] st Contact Info) Description 08/02/2024 2:20 PM LOCK TECHNICIAN Appointment [facility] [address] [place] [address] 08/02/2024 3:00 PM LOCK TECHNICIAN Office Visit [facility] - Hematology/Oncology [address] [place] [phone] Remi Beckett MD [address] [place] [phone] 08/18/2024 1:45 PM LOCK TECHNICIAN Office Visit [facility] - ENT [address] [place] [phone] Neri Delgado MD [address] [place] [address] 08/30/2024 2:20 PM LOCK TECHNICIAN Appointment [facility] [address] [place] [address] documented as of this encounter Visit Diagnoses [...] education. documented in this encounter Care Teams Fabricator Assembler Metal Products Relationship Specialty Start Date End Date Joseph Manzanares MD [address] [place] [phone] PCP - General Internal Medicine 10/07/22 04/20/23 Adriana Adams DO [address] [place] [phone] Resident - PCP Internal Medicine 04/06/22 01/12/23 documented as of this encounter
--- OUTSIDE RECORDS SUMMARY | 2024-07-26 08:31 | XMS_ITS | Encounter Summary ---
Author Organization [facility] Health Address [address] [facility] [place] [address] Care Team Providers Care Manager Lan Name Role Phone Adriana Adams DO Unavailable Joseph Manzanares MD Primary Care Provider [phone] Encounter Details Date Type Department Care Team (Late st Contact Info) Description 10/21/2022 Orders Only [facility] [address] [place] [phone] Von Ray MD [address] [facility] [place] [phone] Social History Tobacco Use Types Packs/Day Years [...] Date Recorded PHQ2 TOTAL SCORE 0 09/02/2022 [facility] [place] [facility] Occupat ional Health - Occupational Stress [...] st Contact Info) Description 08/02/2024 2:20 PM GYMNASIUM TEACHER Appointment [facility] [address] [place] [address] 08/02/2024 3:00 PM GYMNASIUM TEACHER Office Visit [facility] - Hematology/Oncology [address] [place] [phone] Remi Beckett MD [address] [place] [phone] 08/18/2024 1:45 PM GYMNASIUM TEACHER Office Visit [facility] - ENT [address] [place] [phone] Neri Delgado MD [address] [place] [address] 08/30/2024 2:20 PM GYMNASIUM TEACHER Appointment [facility] [address] [place] [address] documented as of this encounter Visit Diagnoses Not on filedocumented in this encounter Care Teams Manager Lan Relationship Specialty Start Date End Date Joseph Manzanares MD [address] [place] [phone] PCP - General Internal Medicine 10/07/22 04/20/23 Adriana Adams DO [address] [place] [phone] Resident - PCP Internal Medicine 04/06/22 01/12/23 documented as of this encounter
--- OUTSIDE RECORDS SUMMARY | 2024-07-26 08:31 | XMS_ITS | Encounter Summary ---
Author Organization [facility] Health Address [address] [place] [address] Care Team Providers Care Clothing Busheler Name Role Phone Adriana Adams DO Unavailable Joseph Manzanares MD Primary Care Provider Encounter Details Date Type Department Care Team (Late st Contact Info) Description 10/14/2022 Plan of Care Documentation [facility] [address] [place] [address] Social History Tobacco Use Types [...] Date Recorded PHQ2 TOTAL SCORE 0 09/02/2022 [facility] of Occupat ional Health - Occupational Stress [...] st Contact Info) Description 08/02/2024 2:20 PM FOLDER INSPECTOR Appointment [facility] [address] [place] [address] 08/02/2024 3:00 PM FOLDER INSPECTOR Office Visit [facility] - Hematology/Oncology [address] [place] [address] [phone] Remi Beckett MD [address] [place] [phone] 08/18/2024 1:45 PM FOLDER INSPECTOR Office Visit [facility] - ENT [address] [place] [phone] Neri Delgado MD [address] [place] [address] 08/30/2024 2:20 PM FOLDER INSPECTOR Appointment [facility] [address] [place] [address] documented as of this encounter Visit Diagnoses Not on filedocumented in this encounter Care Teams Clothing Busheler Relationship Specialty Start Date End Date Joseph Manzanares MD [address] [place] [phone] PCP - General Internal Medicine 10/07/22 04/20/23 Adriana Adams DO [address] [place] [phone] Resident - PCP Internal Medicine 04/06/22 01/12/23 documented as of this encounter
--- OUTSIDE RECORDS SUMMARY | 2024-07-26 08:31 | XMS_ITS | Encounter Summary ---
Author Organization [facility] Address [address] [place] [address] Care Team Providers Care Plate Mounter Name Role Phone Adriana Adams DO Unavailable Joseph Manzanares MD Primary Care Provider [phone] Reason for Visit * Reason Onset Date Comments Reminder Call 10/20/2022 Encounter Details Date Type Department Care Team (Late st Contact Info) Description 10/20/2022 Telephone Transitional Care at [address] [phone] Mary Beth Aguero, RN Reminder [...] TOTAL SCORE 0 09/02/2022 [facility] [place] of Occupat ional Health - Occupational Stress [...] Encounter - Mary Beth Aguero RN - 10/20/2022 10:50 AM CDT Attempted to contact patient to confirm [facility] appointment scheduled for tomorrow at 1300. No answer, VM left, will await call back. documented in this encounter Plan of Treatment Upcoming Encounters Date Type Department Care Team (Late st Contact Info) Description 08/02/2024 2:20 PM WORKERS COMPENSATION CLAIMS ANALYST Appointment [facility] [address] [place] [address] 08/02/2024 3:00 PM WORKERS COMPENSATION CLAIMS ANALYST Office Visit [facility] - Hematology/Oncology [address] [place] [phone] Remi Beckett MD [address] [place] [address] [phone] 08/18/2024 1:45 PM WORKERS COMPENSATION CLAIMS ANALYST Office Visit [facility] - ENT [address] [place] [phone] Neri Delgado MD [address] [place] [address] 08/30/2024 2:20 PM WORKERS COMPENSATION CLAIMS ANALYST Appointment [facility] [address] [place] [address] documented as of this encounter Visit Diagnoses Not on filedocumented in this encounter Care Teams Plate Mounter Relationship Specialty Start Date End Date Joseph Manzanares MD [address] [place] [phone] PCP - General Internal Medicine 10/07/22 04/20/23 Adriana Adams DO [address] [place] [phone] Resident - PCP Internal Medicine 04/06/22 01/12/23 documented as of this encounter
--- OUTSIDE RECORDS SUMMARY | 2024-07-26 08:32 | XMS_ITS | Encounter Summary ---
Author Organization [facility] Health Address [address] [place] [address] Care Team Providers Care Parking Enforcement Officer Name Role Phone Adriana Adams DO Unavailable Taniya Grimes MD Primary Care Provider Reason for Visit * Auth/Cert (Routine) Specialty Diagnoses / Procedures Referred By Yuan t Referred To Contact Diagnoses Cervical spine tumor spine tumor Procedures FUSION POSTERIOR CERVICAL (PCF) Referral ID Status Reason Start Date Expiration Date Visits Re quested Visits Authorized [id number] 1 1 Encounter Details Date Type Department Care Team (Late st Contact Info) Description 10/02/2022 7:27 AM CDT Anesthesia Event [facility] [address] [place] [phone] Maryjane Chapman MD [address] [place] [address] Ioana Reddy MD [address] [facility] [place] [address] Anesthesia Record Procedure Summary Procedure Name Responsible [...] MD Arterial Line Date: 10/02/22; Time : 07; Placed By: Ioana Reddy MD; Location: [...] Recorded PHQ2 TOTAL SCORE 0 09/02/2022 [facility] - Occupational Stress Questionnaire Answer Date [...] No / Unsure 09/02/2022 2:14 PM STORE DIRECTOR documented as of this encounter Functional Status [...] Cardiac Function: stable Postop Pain: adequate (Dilaudid TOURIST ADVISER) Postop Hydration: requires support (IVF 75 cc/hr) [...] PM and Within 6 months for AICD Urania Information needed (spa host, mode, indication for CIED, battery life, magnet function): If Biotronik device AND PM dependent AND surgical site above umbilicus then call local office at [phone] to schedule reprogramming of CIED (into asynchronous [...] being admitted then order: IP Consult to Senior Tax Accountant (comment regarding consult for undiagnosed ALLISON) - Follow steps 2 and 3 above If pt has STOP-BANG >=5 with undiagnosed ALLISON and is outpatient and interested in setting up a sleep study then: - send [employer] message to [employer] and cc Dr. Rodriguez The patient was educated about potential implications of ALLISON on their perioperative course and recommendations for follow-up care and disease management were addressed, including inpatient consult tosleep medicine as above no VIII. Known or suspected difficult airway no and complete previous airway management section above If yes then: update [employer] problem list to include: difficult airway and [...] for the 09/14/22 encounter (Hospital Encounter) with [facility] 1 Medication Sig Last Dose ??? acetaminophen Take 2 (two) tablets by mouth every 6 hours as needed 09/14/2022 ??? atorvastatin TAKE 1 TABLET BY MOUTH EVERYDAY AT BEDTIME 09/14/2022 ??? buPROPion SR 12hr Take 1 (one) tablet by mouth 2 times daily 09/14/2022 ??? calcitriol TAKE 1 CAPSULE BY MOUTH TWICE A DAY 09/14/2022 ??? [id number]-[id number]-YVZN PO Take by mouth once daily 09/14/2022 [...] daily with meals 09/14/2022 ??? fluticasone propionate [place] 2 (two) sprays into each nostril once daily 09/14/2022 ??? gabapentin Take 1 (one) capsule by mouth 3 times daily 09/14/2022 ??? RVLMOJ-ICZDQXGMK-LAP-C-HYAL PO Take 1 tablet by mouth 3 [...] DIRECT LARYNGOSCOPY WITH BIOPSY ??? Polypectomy cervical STEAM PIPE FITTER Status: No LMP recorded. Patient is postmenopausal. [...] Event Date/Time: 10/02/2022 7:35 AM Procedure: intubation (17373). Procedure Section: Induction: standard IV Patient Position: [...] Note Patient Location: OR. Procedure: Arterial Line (13443). Procedure Section Indications: continuous blood pressure monitoring. [...] 1055 10/02/22 1200 fish oil/omega-3 fatty acids (Promega;Cardi-[place] 3) capsule 1,000 mg Note to Pharmacy: OP sig: Take 1 (one) capsule by mouth 3 times daily with meals -- Sent PO 3 TIMES DAILY WITH MEALS 10/02/22 1059 10/02/22 1130 fluticasone propionate (Flonase) nasal spray 2 spray Note to Pharmacy: OP sig: [place] 2 (two) sprays into each nostril [...] 10/02/22 1130 HYDROmorphone (Dilaudid) 10 mg/50 mL TOURIST ADVISER -- Verified IV TOURIST ADVISER 10/02/22 1100 10/02/22 1053 labetalol (Normodyne; Trandate) [...] Placement Removal Peripheral IV Date: 10/02/22; Time: 644; Orientation: Posterior, Right; Location: Hand; Placed By:Anaya [...] st Contact Info) Description 08/02/2024 2:20 PM STORE DIRECTOR Appointment [facility] [address] [place] [address] 08/02/2024 3:00 PM STORE DIRECTOR Office Visit [facility] - Hematology/Oncology [address] [place] [phone] Remi Beckett MD [address] [place] [phone] 08/18/2024 1:45 PM STORE DIRECTOR Office Visit [facility] - ENT [address] [place] [phone] Neri Delgado MD [address] [place] [address] 08/30/2024 2:20 PM STORE DIRECTOR Appointment [facility] [address] [place] [address] documented as of this encounter Procedures Procedure [...] Event Date/Time: ??10/02/2022 7:35 AM Procedure: intubation (90969). Procedure Section: ?? Induction: standard IV Patient [...] Note Patient Location: OR. Procedure: Arterial Line (52481). Procedure Section ?? Indications: continuous blood pressure [...] 0759, Until Wed10/02/22 at 1131, Anesthesia Intra-op Rate Change 10/02/2022 9:32 AM [...] mg documented in this encounter Care Teams Parking Enforcement Officer Relationship Specialty Start Date End Date Taniya Grmies MD [address] [place] [phone] PCP - General 07/15/22 10/06/22 Adriana Adams DO [address] [place] [address] Resident - PCP Internal Medicine 04/06/22 01/12/23 documented as of this encounter
--- OUTSIDE RECORDS SUMMARY | 2024-07-26 08:32 | XMS_ITS | Encounter Summary ---
Author Organization [facility] Health Address [address] [facility] [address] Care Team Providers Care Radio Script Writer Name Role Phone Adriana Aadms DO Unavailable Taniya Grimes MD Primary Care Provider Encounter Details Date Type Department Care Team (Latest Contact Info) Description 09/14/2022 2:00 PM CDT - 09/14/2022 2:17 PM CDT Hospital Encounter [facility] PAT [address] [place] [address] Coy Gómez MD [address] [facility] 2L [place] [address] Discharge Disposition: Home or Self Care Anesthesia [...] An Intubation 0738 Insert Art Line 0751 [place] Pins Applied 0756 Pt Repositioned 0822 Anes [...] Coronavirus/COVID-19? No / Unsure 09/02/2022 2:14 PM ELECTRICAL TROUBLESHOOTER documented as of this encounter Functional Status [...] A DAY 60 capsule 11 02/22/2022 05/28/2023 [id number]-[id number]-[id number] PO Take by mouth once daily 06/13/2023 [...] fluticasone propionate (FLONASE) 50 MCG/ACT nasal spray Issue 2 (two) sprays into each nostril once daily 48 g 10/20/2021 11/25/2022 gabapentin (Neurontin) 300 MG capsuleIndications:Nicole stahl osteoarthritis of left hip Take 1 (one) capsule by mouth 3 times daily 90 capsule 5 04/06/2022 11/19/2022 [id number]-MZD-C -HYAL PO Take 1 tablet by mouth [...] st Contact Info) Description 08/02/2024 2:20 PM ELECTRICAL TROUBLESHOOTER Appointment [facility] [address] [place] [address] 08/02/2024 3:00 PM ELECTRICAL TROUBLESHOOTER Office Visit [facility] - Hematology/Oncology [address] [place] [phone] Remi Beckett MD [address] [place] [phone] 08/18/2024 1:45 PM ELECTRICAL TROUBLESHOOTER Office Visit [facility] - ENT [address] [place] [phone] Neri Delgado MD [address] [place] [address] 08/30/2024 2:20 PM ELECTRICAL TROUBLESHOOTER Appointment [facility] [address] [place] [address] documented as of this encounter Procedures Procedure Name Priority Date/Time Associated Diagnosis Comments TYPE + SCREEN PANEL Routine 09/14/2022 3 :13 PM CDT Preop examination documented in this encounter Results * TYPE + SCREEN PANEL (09/14/2022 3:13 PM CDT) Antibody Screen NEG 3:56 PM CDT [facility] ABO Rh B POS 09/14/2022 3:56 PM CDT [facility] Blood Bank BLOOD SPECIMEN / Unknown Lab Venipuncture / Unknown 09/14/2022 3:13 PM CDT 09/14/2022 3:20 PM CDT Juan Rodriguez MD LAB - BLOOD BANK ORD ERABLES [facility] [address] [place] [address], [facility] [phone] documented in this encounter Visit Diagnoses Diagnosis Preop examination- Primary Preoperative examination, unspecified documented in this encounter Care Teams Radio Script Writer Relationship Specialty Start Date End Date Taniya Grimes MD [address] [facility] 2L DIV OF [facility] [place] [phone] PCP - General 07/15/22 10/06/22 Adriana Adams DO [address] [place] [phone] Resident - PCP Internal Medicine 04/06/22 01/12/23 documented as of this encounter
--- OUTSIDE RECORDS SUMMARY | 2024-07-26 08:32 | XMS_ITS | Encounter Summary ---
Author Organization [facility] Health Address [address] [facility] [place] [address] Care Team Providers Care Preparation Supervisor Name Role Phone Adriana Adams DO Unavailable Taniya Grimes MD Primary Care Provider [phone] Reason for Visit * Reason Onset Date Comments MEDICATION REFILL 09/07/2022 Encounter Details Date Type Department Care Team (Late st Contact Info) Description 09/07/2022 Refill [facility] [address] [place] [phone] Adriana Adams DO [address] [place] [phone] MEDICATION REFILL Social History Tobacco [...] Coronavirus/COVID-19? No / Unsure 09/02/2022 2:14 PM VETERINARIAN EPIDEMIOLOGIST documented as of this encounter Functional Status [...] reapply a new patch 12 hours later. RINARIAN EPIDEMIOLOGIST documented in this encounter Plan of Treatment Upcoming Encounters Date Type Department Care Team (Late st Contact Info) Description 08/02/2024 2:20 PM VETERINARIAN EPIDEMIOLOGIST Appointment [facility] [address] [place] [address] 08/02/2024 3:00 PM VETERINARIAN EPIDEMIOLOGIST Office Visit [facility] - Hematology/Oncology [address] [place] [phone] Remi Beckett MD [address] [place] [phone] 08/18/2024 1:45 PM VETERINARIAN EPIDEMIOLOGIST Office Visit [facility] - ENT [address] [place] [phone] Neri Delgado MD [address] [place] [address] 08/30/2024 2:20 PM VETERINARIAN EPIDEMIOLOGIST Appointment [facility] [address] [place] [address] documented as of this encounter Visit Diagnoses Not on filedocumented in this encounter Care Teams Preparation Supervisor Relationship Specialty Start Date End Date Taniya Grimes MD [address] [facility] [place] [phone] PCP - General 07/15/22 10/06/22 Adriana Adams DO [address] [place] [phone] Resident - PCP Internal Medicine 04/06/22 01/12/23 documented as of this encounter
--- OUTSIDE RECORDS SUMMARY | 2024-07-26 08:32 | XMS_ITS | Encounter Summary ---
Author Organization [facility] Health Address [address] [place] [address] Care Team Providers Care Therapeutic Radiologist Name Role Phone Adriana Adams DO Unavailable Taniya Grimes MD Primary Care Provider [phone] Reason for Visit * Reason Onset Date Comments Question 09/29/2022 Encounter Details Date Type Department Care Team (Late st Contact Info) Description 09/29/2022 Telephone [facility] [address] [place] [phone] Neri Delgado MD [address] [place] [phone] Question Social History Tobacco Use Types Packs/Day [...] Coronavirus/COVID-19? No / Unsure 09/02/2022 2:14 PM TOP PRECIPITATOR OPERATOR HELPER documented as of this encounter [...] She doesn't know if she has strep. [phone] documented in this encounter Plan of Treatment Upcoming Encounters Date Type Department Care Team (Late st Contact Info) Description 08/02/2024 2:20 PM TOP PRECIPITATOR OPERATOR HELPER Appointment [facility] [address] [place] [address] 08/02/2024 3:00 PM TOP PRECIPITATOR OPERATOR HELPER Office Visit [facility] - Hematology/Oncology [address] [place] [address] Remi Beckett MD [address] [place] [address] 08/18/2024 1:45 PM TOP PRECIPITATOR OPERATOR HELPER Office Visit [facility] - ENT [address] [place] [phone] Neri Delgado MD [address] [place] [address] 08/30/2024 2:20 PM TOP PRECIPITATOR OPERATOR HELPER Appointment [facility] [address] [place] [address] documented as of this encounter Visit Diagnoses Not on filedocumented in this encounter Care Teams Therapeutic Radiologist Relationship Specialty Start Date End Date Taniya Grimes MD [address] [place] [address] OF [facility] [place] [phone] PCP - General 07/15/22 10/06/22 Adriana Adams DO [address] [place] [phone] Resident - PCP Internal Medicine 04/06/22 01/12/23 documented as of this encounter
--- OUTSIDE RECORDS SUMMARY | 2024-07-26 08:32 | XMS_ITS | Encounter Summary ---
Author Organization [facility] Address [address] [place] [address] Care Team Providers Care Filler Shredding Machine Loader Name Role Phone Adriana Adams DO Unavailable Taniya Grimes MD Primary Care Provider Reason for Referral * Radiology Services (Routine) - Closed Specialty Diagnoses / Procedures Referred By Yuan robins Referred To Contact Diagnoses Neoplasm of uncertain behavior of skin Thyroid cancer (HCC) Procedures MRI CERVICAL SPINE WWO CONT Marcio Mcintosh MD [address] [place] [address] [phone] Referral ID Status Reason Start Date Expiration Date Visits Re quested Visits Authorized [id number] Closed 12/15/2022 12/15/2023 1 1 Encounter Details Date Type Department Care Team (Latest Contact Info) Description 09/21/2022 2:06 PM CDT - 09/21/2022 11:59 PM CDT Hospital Encounter [facility] [place] [address] Marcio Mcintosh MD [address] [place] [address] Discharge Disposition: Home or Self [...] Coronavirus/COVID-19? No / Unsure 09/02/2022 2:14 PM [employer] documented as of this encounter Last Filed [...] A DAY 60 capsule 11 02/22/2022 05/28/2023 [id number] PO Take by mouth once daily 06/13/2023 [...] propionate (FLONASE) 50 MCG/ACT nasal spray [place] 2 (two) sprays into each nostril once daily 48 g 10/20/2021 11/25/2022 gabapentin (Neurontin) 300 MG capsuleIndications:Nicole stahl osteoarthritis of left hip Take 1 (one) capsule by mouth 3 times daily 90 capsule 5 04/06/2022 11/19/2022 [id number] -HYAL PO Take 1 tablet by mouth [...] Treatment Patient Visit Department of Radiation Oncology [facility] ENCOUNTER DATE: 09/21/2022 PATIENT IDENTIFICATION Brisa Hogan [...] week SUBJECTIVE: Ms. Brisa Hogan is a 62 year old female who presents for an on treatment visit. Brisa has presented with a friend describing nausea, [...] Membrances: Mucous Membranes: Moist Eye: Eyes: 0-No changer fixer baseline Ears: Salivary Glands: Salivary Glands: 0-no changer fixer baseline Pharynx and Esophagus: Pharynx and Esophagus: 0-No changer fixer baseline Larynx: Larynx: 0-No change in baseline Upper GI: Upper GI: 0-no changer fixer baseline Lower GI including pelvis: Lower GI including pelvis: 0-No changer fixer baseline Lungs: Lungs: 0-No changer fixer baseline Other: MEDICATIONS: Current Outpatient Medications: ??? [...] DAY, Disp: 60 capsule, Rfl: 11 ??? [id number] PO, Take by mouth once daily, Disp: [...] fluticasone propionate (FLONASE) 50 MCG/ACT nasal spray, [place] 2 (two) sprays into each nostrilonce daily, Disp: 48 g, Rfl: 0 ??? gabapentin (Neurontin) 300 MG capsule, Take 1 (one) capsule by mouth 3 times daily, Disp: 90 capsule, Rfl: 5 ??? [id number] PO, Take 1 tablet by mouth 3 [...] Contact Info) Description 08/02/2024 2:20 PM [employer] Appointment [facility] [address] [place] [phone] 08/02/2024 3:00 PM [employer] Office Visit [facility] - Hematology/Oncology [address] [place] [phone] Remi Beckett MD [address] [place] [phone] 08/18/2024 1:45 PM [employer] Office Visit [facility] - ENT [address] [place] [phone] Neri Delgado MD [address] [place] [phone] 08/30/2024 2:20 PM [employer] Appointment [facility] [address] [place] [phone] documented as of this encounter Procedures Procedure [...] DATE/TIME OF EXAM: ??12/24/2022 11:32 AM, LOCATION ??[facility] INDICATION: 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 for electiveC2-T2 fusion and decompression C3-C7 [...] gland documented in this encounter Care Teams Filler Shredding Machine Loader Relationship Specialty Start Date End Date Taniya Grimes MD [address] [place] [place] [address] PCP - General 07/15/22 10/06/22 Adriana Adams DO [address] [place] [address] Resident - PCP Internal Medicine 04/06/22 01/12/23 documented as of this encounter
--- OUTSIDE RECORDS SUMMARY | 2024-07-26 08:32 | XMS_ITS | Encounter Summary ---
Author Organization [facility] Address [address] [facility] [address] [place] [address] Care Team Providers Care Compliance Examiner Name Role Phone Adriana Adams DO Unavailable Taniya Grimes MD Primary Care Provider Reason for Visit * Auth/Cert (Routine) Specialty Diagnoses / Procedures Referred By Contac t Referred To Contact Diagnoses Cervical spine tumor spine tumor Procedures FUSION POSTERIOR CERVICAL (PCF) Referral ID Status Reason Start Date Expiration Date Visits Re quested Visits Authorized [id number] 1 1 Encounter Details Date Type Department Care Team (Late st Contact Info) Description 10/02/2022 7:30 AM CDT - 10/02/2022 12:35 PM CDT Surgery [facility] [address] [place] [address] Coy Gómez MD [address] [facility] 2L [place] [address] C2-T2 fusion and decompression C3-C7 and resection extramedullary spine tumor Surgery Details Date/Time Status Location OR Service Patient Class Case Class Case Type Trauma Case? 10/02/2022 7:30 AM Posted [facility] OR OR 15 Neurosurgery Research And Development Tester Admit Surgical Elective > 5 days Panel 1 Procedure LRB Anes Op Region Wound Class Comments C2-T2 fusion and decompressi on C3-C7 and resection extramedullary spine tumor N/A General Shiloh n Surgeon Surgeon Role Service Panel Coy Gómez MD Primary Neurosurgery 1 Carloz Corea MD Resident - Assisting [facility] 1 Brady Guerrero MD Resident - Assisting [...] Recorded PHQ2 TOTAL SCORE 0 09/02/2022 [facility] [place] of Occupat ional Health - Occupational Stress [...] Coronavirus/COVID-19? No / Unsure 09/02/2022 2:14 PM FINANCIAL INSTITUTION BRANCH MANAGER documented as of this encounter Last Filed [...] Physician Discharge Summary Patient ID: Elizabeth Hogan [id number] 62 year old 1960 Admit date: 10/02/2022 [...] Condition: good Indication for Admission: Hospital Course: atbianca is a 62 year old female with metastatic??high risk papillary thyroid cancer??(jE4wT6lJz - IVb) s/p??salvage total thyroidectomy and neck [...] place, time) Motor: ?? Deltoid Bicep Tricep Beverage Manager Wrist Ext Finger ext Hip Flexor Quad Hamstring Tib Ant Gastroc EHL Right 5 5 5 5 5 5 5 5 5 5 5 5 Left 1 1 4 4+ 4+ 4+ 4 5 5 5 5 5 ? Disposition:home Patient Instructions: Numb cream Neurosurgery Inpatient Discharge Instructions If you have any questions about the instructions below please call: [phone], ask for the Neurosurgery resident biofuels production associate. Diet: regular diet Wound care after surgery: [...] you were sent home on please call [phone], and ask for the Neurosurgery resident biofuels production associate. Do not sign important papers or make [...] clinic appointment information call Heather Oreilly at [phone]. - Also, you can call Outpatient Automatic Pinsetter Mechanic at [phone] 2) Please see your family doctor for [...] any questions about these instructions please call: [phone], ask for the Neurosurgery resident biofuels production associate. This list of medications is preliminary and [...] 1 CAPSULE BY MOUTH TWICE A DAY [id number]-[id number] PO Take by mouth once daily cetirizine [...] fluticasone propionate (FLONASE) 50 MCG/ACT nasal spray Blodgett 2 (two) sprays into each nostril oncedaily gabapentin (Neurontin) 300 MG capsule Take 1 (one) capsule by mouth 3 times daily [id number]-VDOTUFQTI-HKZ-C-HYAL PO Take 1 tablet by mouth 3 [...] Medicine Relationship: PCP - General [address] [facility] 2L DIV OF GEN INTERNAL MEDICINE [facility] [address] Next Steps: Follow up Coy Gómez MD Specialty: Neurological Surgery [address] [facility] DIV OF NEUROSURGERY [facility] [address] Next Steps: Follow up Von Ray MD, 10/06/2022 at 4:11 PM documented in this encounter Discharge Instructions * Discharge Instructions* Von Ray MD - 10/06/2022 4:15 PM CDT Numb cream Neurosurgery Inpatient Discharge Instructions If you have any questions about the instructions below please call: [phone], ask for the Neurosurgery resident biofuels production associate. Diet: regular diet Wound care after surgery: [...] you were sent home on please call [phone], and ask for the Neurosurgery resident biofuels production associate. Do not sign important papers or make [...] clinic appointment information call Heather Oreilly at [phone]. - Also, you can call Outpatient Automatic Pinsetter Mechanic at [phone] 2) Please see your family doctor for [...] any questions about these instructions please call: [phone], ask for the Neurosurgery resident biofuels production associate. documented in this encounter Medications at Time [...] A DAY 60 capsule 11 02/22/2022 05/28/2023 [id number]-[id number]-TPTZ PO Take by mouth once daily 06/13/2023 [...] fluticasone propionate (FLONASE) 50 MCG/ACT nasal spray Blodgett 2 (two) sprays into each nostril once daily 48 g 10/20/2021 11/25/2022 gabapentin (Neurontin) 300 MG capsuleIndications:Nicole stahl osteoarthritis of left hip Take 1 (one) capsule by mouth 3 times daily 90 capsule 5 04/06/2022 11/19/2022 [id number]-RNLHDXYGD-TEP-C -HYAL PO Take 1 tablet by mouth [...] Kaye - 10/07/2022 12:12 PM CDT Discharge Automatic Pinsetter Mechanic received request from to arrange follow-up appointment for Patientwith Neurosurgery. This field underwriter called [phone] and spoke with Zeny . Automatic Pinsetter Mechanic was able to obtain a follow-up appointment for Patient with FRICTION PAINT MACHINE TENDER Merle Parker on 11/12/22 at 3:15pm. This field underwriter called [phone]. Per patient verbalized understanding of future appointment. No further follow-up needs from tinware lithograph press operator indicated at this time. Shannon Kaye, Discharge Automatic Pinsetter Mechanic 10/08/2022 * Myra Cho - 10/07/2022 12:12 PM CDT Discharge Automatic Pinsetter Mechanic received request from Dr. Ray to reschedule follow-up appointment for Patient with Neurosurgery . This field underwriter called [phone] and spoke with Juma. Automatic Pinsetter Mechanic was able to obtain follow-up appointment for Patient with Dr. Gómez on Friday January 13, 2023 at 10:00 am. No further follow-up needs from tinware lithograph press operator indicated at this time. Myra Cho, Discharge Automatic Pinsetter Mechanic 10/22/2022 * Ellen Huston RN - 10/07/2022 [...] old female with metastatic??high risk papillary thyroid cancer??(sI4rO6cVf - IVb) s/p??salvage total thyroidectomy and neck [...] mg, Oral, BID fish oil/omega-3 fatty acids (Promega;Cardi-Bridgewater 3) capsule 1,000 mg, Oral, TID WC [...] place, time) Motor: ?? 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 4/3 POSTOP EVALUATION NOTE. Procedure: C2-T2 fusion and decompression C3-C7 and resection extramedullary spine tumor [facility] referrals pending. Payer/Plan Subscriber Name Rel Member # Group # [employer] * EDISONELIZABETHHiral Bowen [id number] ATTN CLAIMS DEPARTMENT, [address] Continued Care and Services - Admitted Since 10/02/2022 Home Medical Care Service Provider Request Status Selected Services Address Phone Fax Patient Preferred [facility] Pending - Request Sent N/A [address], [place] [address] [phone] -- [facility] Pending - Request Sent N/A [address] [facility] [address] [phone] -- [facility] ([facility] Pending - Request Sent N/A [address], [facility] [address] [phone] -- [facility] Home Care (formerly [facility]) Pending - Request Sent N/A [address] [facility] [place] [address] -- [facility] - HH Pending - Request Sent N/A [address], [facility] [address] -- [facility] Pending - Request Sent N/A [address], [address], [place] [id number] -- Lives with: Spouse Physical Limitations: Wheelchair Bound Has Medicaid youth worker through vendor: [employer] Requires Assistance With: Mobility;Hygiene;Housekeeping;Meal Preparation;Medication Administration;Shopping - assistance from sister and daughter Preferred Pharmacy: [id number] [address] [facility] [address] [address] [facility] [address] Advance Directive: No Advance Directive Information Given: Refused Information Would you like assistance on completing and executing or revising an Advance Directive?: No READMISSION RISK SCORE is 14 at 4:00 PM 10/06/2022. Met with patient at bedside Family Support (name and phone): Extended Emergency Contact Information Primary Emergency Contact: Boogie Hogan Address: [facility] [place], [place] [address] [place] [address] of Health System Relation: Spouse Secondary Emergency Contact: isaac jules Address: [address] [place] [address] Mobile Relation: Sister Patient or inside account representative requests care coordination reach out to family or caregiver listed above regarding discharge planning and at time of discharge? No Patient/Family provided with list of resources? No Preferred Provider / High Quality Network List given?: No Reason for provider choice: Pt. choice - Pt. choice Equipment at Home: Walker-2 Wheeled List DME pt. requires but does not have.: None B Operator Referral: No Will continue to follow. For any questions or needs please contact: Delivery Architect Name/Phone number: Torsten Lynn RN [phone] * [...] Music Therapist Sacha Ngo visited patient in [facility] room. Patient was observed sitting up in chair, alert and oriented. Patient stated that she loves music. During interventions, patient closed her eyes, breathed slowly and deeply, and mouthed familiar lyrics. At conclusion of session, no nonverbal indicators of distress observed, and patient reported increased feelings of relaxation and calm. Sacha Ngo, [facility], [place]- 10/06/2022 10:31 AM * Yaneth Camejo [...] old female with metastatic??high risk papillary thyroid cancer??(vV2hG4bOd - IVb) s/p??salvage total thyroidectomy and neck [...] Oral, BID ?? fish oil/omega-3 fatty acids (Promega;Cardi-Bridgewater 3) capsule 1,000 mg, Oral, TID WC [...] place, time) Motor: ?? Deltoid Bicep Tricep Beverage Manager Wrist Ext Finger ext Hip Flexor Quad [...] Percocet for pain control PT: home with Sergio SQ for VTE ppx Pepcid for GI ppx SPL evaluation- mild aspiration risk Advance diet as tolerated Activity as tolerated Fabio Sheikh, BANK VAULT CUSTODIAN-TURBO GENERATOR OILER 1:46 AM 10/06/22 To reach Neurosurgery for questions: From 7am to 5pm please call the [facility] for Neurosurgery From 5pm to 7am please refer to [employer]) to reach the resident biofuels production associate (changes daily) Secure chat can be used for non-urgent issues only, please expect a reasonable amount of time for responses * Natasha Bar, PT - 10/05/2022 4:23 PM CDT [facility] Physical Medicine and Rehabilitation Physical Therapy Progress Note Patient: Elizabeth Hogan [facility] Record Number: [id number] Date of : 1960 Age: [age] year [...] will ascend/descent 3 steps with minimal assist Delinquent Tax Collector Goal(s): Patient to be independent with functional [...] Marrufo SLP - 10/05/2022 3:20 PM CDT [facility] Physical Medicine and Rehabilitation Bedside Swallow Assessment Patient: Elizabeth Hogan [facility] Record Number: [id number] Date of : 1960 Age: [age] year [...] Impression - Pharyngeal: Mild Education/Interventions: While performing FOAM GUN OPERATOR, Patient was instructed in: goals of treatment [...] precautions., Patient will follow recommended swallowing strategies. Chcf Goal (s): Patient to be independent/baseline with functional mobility and self care and be able to safely discharge to prior level of care. Alli Schmid M.A., [facility]-FOAM GUN OPERATOR Speech Language Pathologist [phone] * Pravin Dennis [...] female metastatic high risk papillary thyroid cancer (aA7vC2bRm - IVb) s/psalvage total thyroidectomy??and neck dissection [...] mg, Oral, BID fish oil/omega-3 fatty acids (Promega;Cardi-Bridgewater 3) capsule 1,000 mg, Oral, TID WC [...] preop exam (shownbelow) ? Deltoid Bicep Tricep Beverage Manager Wrist Ext Finger ext Hip Flexor Quad [...] tolerated - Activity as tolerated - DC AUTOMOTIVE PARTS COUNTER ASSISTANT today - SPL evaluation - Still has [...] female metastatic high risk papillary thyroid cancer (sP2sC3uYx - IVb) s/psalvage total thyroidectomy??and neck dissection [...] mg, Oral, BID fish oil/omega-3 fatty acids (Promega;Cardi-Bridgewater 3) capsule 1,000 mg, Oral, TID WC [...] preop exam (shownbelow) ? Deltoid Bicep Tricep Beverage Manager Wrist Ext Finger ext Hip Flexor Quad [...] English PT - 10/03/2022 9:37 AM CDT [facility] Physical Medicine and Rehabilitation Physical Therapy Initial Evaluation Note Patient: Elizaebth Hogan [facility] Record Number: [id number] Date of : 1960 Age: [age] year [...] adult female found lying in bed in [facility] LDAs: IV's: Peripheral line and Drains Edema: [...] will ascend/descent 3 steps with minimal assist Delinquent Tax Collector Goal(s): Patient to be independent with functional [...] female metastatic high risk papillary thyroid cancer (wN9mS6jVi - IVb) s/psalvage total thyroidectomy??and neck dissection [...] Oral, BID ?? fish oil/omega-3 fatty acids (Promega;Cardi-Bridgewater 3) capsule 1,000 mg, Oral, TID WC [...] preop exam (shownbelow) ? Deltoid Bicep Tricep Beverage Manager Wrist Ext Finger ext Hip Flexor Quad [...] CDT NEUROSURGERY POST-OP NOTE : SUBJECTIVE Elizabeth Wodoy Hogan is POD 0 s/p C2-T2 fusion [...] preop exam (shownbelow) ?? Deltoid Bicep Tricep Beverage Manager Wrist Ext Finger ext Hip Flexor Quad [...] with metastatic high risk papillary thyroid cancer (dS9wQ5sUl - IVb) s/p salvage total thyroidectomy??requiring??sacrifice of [...] ??? Lymphadenopathy of head and neck region [facility] NEURO SPINAL SURGERY HIGH RISK VARIABLES [...] ??? calcitriol (Rocaltrol) 0.5 MCG capsule ??? [id number]-[id number] PO ??? celecoxib (CELEBREX) 200 MG capsule ??? cetirizine (ZYRTEC) 10 MG tablet ??? clonazePAM (KLONOPIN) 0.5 MG tablet ??? cyclobenzaprine (Flexeril) 5 MG tablet ??? famotidine (PEPCID) 20 MG tablet ??? fish oil/omega-3 fatty acids (PROMEGA;CARDI-OMEGA 3) 1000 MG capsule ??? fluticasone propionate (FLONASE) 50 MCG/ACT nasal spray ??? gabapentin (Neurontin) 300 MG capsule ??? SREZHH-JSVIHGYGM-KIY-C-HYAL PO ??? levothyroxine (Synthroid) 112 MCG tablet [...] alert, appropriate Neuro: a Deltoid Bicep Tricep Beverage Manager Wrist Ext Finger ext Hip Flexor Quad [...] DATE/TIME OF EXAM: 08/21/2022 3:59 PM, LOCATION [facility] INDICATION: C73: Thyroid cancer (CMS/HCC) E89.0: [...] with metastatic high risk papillary thyroid cancer (tZ1lX0sZg - IVb) s/p salvage total thyroidectomy??requiring??sacrifice of [...] you for this referral. Bina El RN [facility] real estate administrator Liaison [facility] [phone] * Ananya El RN - 10/07/2022 12:12 PM CDT VERIFICATION HAS FINISHED & REFERRAL COMPLETED. Bina El RN [facility] real estate administrator Liaison [facility] [phone] * Darian Carrillo MSW - 10/06/2022 3:39 PM CDTAssociated Order(s): IP CONSULT TO ORTHOTIST SW aware this pt's plan is for home health. CM is aware of this discharge plan. SW to continue to follow for any other SW needs. MARIO Machuca 10/06/2022 * Dariela Ramirez RD/ERLIN - 10/03/2022 3:39 PM CDTAssociated Order(s): IP CONSULT TO NUTRITIONAL SERV Initial Nutrition Assessment Brief Synopsis: Patient is at Nutrition Risk; Specific criteria can be found in assessment below Nutrition Plan: Regular diet order +Ensure Plus High Protein (1.5 kcal) TID w/ meals (350 kcal, 20 grams pro, 40 grams CHO) Recommendations to Physician: Consult FOAM GUN OPERATOR d/t pt reporting having difficulty with swallowing [...] denies N/V/D/C at this time. 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 Pt receiving daily senna. Labs reviewed; Ca (7.9). RD will continue to follow. Assessment: Med/Surg History and Clinical Diagnoses: 62 year old female metastatic high risk papillary thyroid cancer (yG8fZ4pEe - IVb) s/p salvage total thyroidectomy and [...] Pain affecting intake: No Estimated Needs: KCAL: 0501-7968 (25-30 kcal/kg ABW) Protein (g): 76-127 (1.2-2.0 [...] 20 mg ??? fish oil/omega-3 fatty acids (Promega;Cardi-Bridgewater 3) capsule 1,000 mg ??? fluticasone propionate (Flonase) nasal spray 2 spray ??? gabapentin (Neurontin) capsule 300 mg ??? heparin injection 5,000 Units ??? hydrALAZINE (Apresoline) injection 10 mg ??? HYDROmorphone (Dilaudid) 10 mg/50 mL AUTOMOTIVE PARTS COUNTER ASSISTANT ??? labetalol (Normodyne; Trandate) injection 10 mg [...] resection extramedullary spine tumor Patient Name: Elizabeth R Edison Date of Service: 10/02/2022 Pre-Op Diagnosis: spine tumor Post-Op Diagnosis: extramedullary cervical spine tumor Surgeon(s) and Role: * Coy Gómez MD - Primary * Carloz Corea MD - Resident - Assisting * Brady Guerrero MD - Resident - Assisting Office Service Coordinator(s): none Anesthesia Type: general ETT Complications: none [...] Implant Name Type Inv. Item Serial No. Mechanical Operator Lot No. LRB No. Used Action Savage Bone Void Ca Slf Stimulan Savage Bone Void 10Cc 20Cc Ca Slf Stimulan Biocompstes [id number] N/A 1 Implanted Savage Bone Void 10Ml [...] REPORT NAME: Elizabeth Hogan : 1960 CSN: [id number] DATE OF SERVICE: 10/02/22 PROCEDURE PERFORMED: 1. [...] Hogan??is a 61 year old??female??with aggressive PTC (qE4bF2x) s/p thyroidectomy, tracheal resection/reanastamosis, bilateral neck dissections [...] and infiltrated with local anesthetic with epinephrine. [place] were inserted for somatic somatosensory evoked potential [...] for stereotactic screw insertion. Very briefly a packing machine pilot can router hole was drilled in the left standard entry point for pars screw at C2. A stereotactic drill was used to create a packing machine pilot can router hole into the pars followed by stereotactic And stereotactic screw insertion. After removing every instrument the packing machine pilot can router hole was palpated in order to ensure [...] Implant Name Type Inv. Item Serial No. Mechanical Operator Lot No. LRB No. Used Action Savage Bone Void Ca Slf Stimulan Savage Bone Void 10Cc 20Cc Ca Slf Stimulan Biocompstes [id number] N/A 1 Implanted Savage Bone Void 10Ml [...] st Contact Info) Description 08/02/2024 2:20 PM FINANCIAL INSTITUTION BRANCH MANAGER Appointment [facility] [address] [place] [id number] 08/02/2024 3:00 PM FINANCIAL INSTITUTION BRANCH MANAGER [facility] Hematology/Oncology [address] [place] [phone] [place] [address] [place] [phone] 08/18/2024 1:45 PM FINANCIAL INSTITUTION BRANCH MANAGER [facility] E[facility] [address] [place] [phone] Neri Delgado MD [address] [place] [phone] 08/30/2024 2:20 PM FINANCIAL INSTITUTION BRANCH MANAGER Appointment [facility] [address] [place] [address] Scheduled Referrals Name Type Priority Associated Diagnoses [...] PRONE, C-ARM, O-ARM Kinevo scope NEUROMONITORING (SSEP,MEP,EMG), Spongecell--Samir notified 09/28 TYPE + SCREEN PANEL MARAL 10/02/2022 6 :41 AM CDT Preop examination documented in this encounter Results * CARDIAC EKG ORDER (10/09/2022 12:58 PM CDT) Narrative 10/09/2022 12:58 PM CDT Ordered by an unspecified provider. Scanned Document CARDIAC SERVICES ORD ERABLES * (ABNORMAL) PHOSPHORUS BLOOD (10/07/2022 12:12 AM CDT) Phosphorus 5.3(H) 2.9 - 5.1 mg/dL 10/07/2022 12:43 AM CDT [facility] Blood BLOOD SPECIMEN / Unknown Lab Venipuncture / Unknown 10/07/2022 12:12 AM CDT 10/07/2022 12:19 AM CDT Coy Gómez MD LAB - CHEMISTRY ASH WEAVER Performing Organization Address City/[facility]/ZIP Co de Phone Number [address] [address], [facility] [phone] * MAGNESIUM BLOOD (10/07/2022 12:12 AM CDT) Magnesium 1.7 1.6 - 2.6 mg/dL 10/07/2022 12:43 AM T [facility] Blood BLOOD SPECIMEN / Unknown Lab Venipuncture / Unknown 10/07/2022 12:12 AM CDT 10/07/2022 12:19 AM CDT Coy Gómez MD LAB - CHEMISTRY ASH WEAVER [address] [address], [facility] [phone] * (ABNORMAL) CBC W AUTO DIFFERENTIAL (10/07/2022 12:12 AM CDT) WBC 8.1 3.5 - 10.5 10? 3 /uL 10/07/2022 1:08 AM [facility] RBC 3.03(L) 3.80 - 5.20 10? 6 /uL 10/07/2022 1:08 AM [facility] Hemoglobin 9.2(L) 12.0 - 15.6 g/dL 10/07/2022 1:08 AM [facility] Hematocrit 27.3(L) 35.0 - 45.0 % 10/07/2022 1:08 AM [facility] MCV 90.1 80.7 - 98.3 fL 10/07/2022 1:08 AM [facility] MCH 30.4 26.7 - 34.0 pg 10/07/2022 1:08 AM [facility] MCHC 33.7 30.8 - 35.9 g/dL 10/07/2022 1:08 AM [facility] RDW-SD 43.9 36.0 - 50.0 fL 10/07/2022 1:08 AM [facility] RDW-CV 13.4 11.2 - 14.8 % 10/07/2022 1:08 AM [facility] Platelet Count 263 150 - 400 10? 3 /uL 10/07/2022 1:08 AM [facility] MPV 10.3 9.4 - 12.9 fL 10/07/2022 1:08 AM [facility] nRBC Absolute 0.00 0 10? 3 /uL 10/07/2022 1:08 AM [facility] nRBC Auto 0.0 0 /100 WBC 10/07/2022 1:08 AM [facility] Neutrophils % 59.0 35.0 - 70.0 % 10/07/2022 1:08 AM [facility] Lymphocytes % 25.1 20.0 - 43.0 % 10/07/2022 1:08 AM [facility] Monocytes % 12.4 5.0 - 13.0 % 10/07/2022 1:08 AM [facility] Eosinophils % 2.4 0.0 - 6.0 % 10/07/2022 1:08 AM [facility] Basophil % 0.7 0.0 - 2.0 % 10/07/2022 1:08 AM [facility] Neutrophils Absolute 4.75 1.60 - 7.00 10? 3 /uL 10/07/2022 1:08 AM [facility] Lymphocyte Absolute 2.02 1.10 - 3.90 10? 3 /uL 10/07/2022 1:08 AM [facility] Monocytes Absolute 1.00 0.26 - 1.07 10? 3 /uL 10/07/2022 1:08 AM [facility] Eosinophils Absolute 0.19 0.00 - 0.47 10? 3 /uL 10/07/2022 1:08 AM [facility] Basophils Absolute 0.06 0.00 - 0.08 10? 3 /uL 10/07/2022 1:08 AM [facility] Immature Granulocytes % 0.4 0.0 - 1.0 % 10/07/2022 1:08 AM [facility] Immature Granulocytes Absolute 0.03 10/07/2022 1:08 AM [facility] Blood BLOOD SPECIMEN / Unknown Lab Venipuncture / Unknown 10/07/2022 12:12 AM CDT 10/07/2022 12:19 AM T Coy Gómez MD LAB - HEMATOLOGY ORD ERABLES [facility] [address] [place] [address], [facility] [phone] * (ABNORMAL) BASIC METABOLIC PANEL (CALCIUM TOTAL) (10/07/2022 12:12 AM [facility]) BUN 15 7 - 26 mg/dL 10/07/2022 12:43 AM [facility] Creatinine 0.56 0.56 - 0.96 mg/dL 10/07/2022 12:43 AM [facility] Sodium 143 136 - 145 mmol/L 10/07/2022 12:43 AM [facility] Potassium 3.8 3.5 - 4.5 mmol/L 10/07/2022 12:43 AM [facility] Chloride 106 98 - 107 mmol/L 10/07/2022 12:43 AM [facility] CO2 25 22 - 29 mmol/L 10/07/2022 12:43 AM [facility] Glucose 92 70 - 115 mg/dL 10/07/2022 12:43 AM [facility] Calcium 9.0 8.4 - 10.2 mg/dL 10/07/2022 12:43 AM [facility] Anion Gap 16 8 - 18 10/07/2022 12:43 AM [facility] BUN/Creatinine Ratio 27(H) 7 - 23 10/07/2022 12:43 AM [facility] Osmolality Calculated 296 270 - 300 mOsm/kg 10/07/2022 12:43 AM [facility] eGFR by CKD-EPI >90 >=90 mL/min/1.7 3 m2 10/07/2022 12:43 AM CDT [facility] Blood BLOOD SPECIMEN / Unknown Lab Venipuncture / Unknown 10/07/2022 12:12 AM CDT 10/07/2022 12:19 AM CDT Coy Gómez MD LAB - CHEMISTRY ASH WE[employer]ER Performing Organization Address City/[facility]/ZIP Co de Phone Number [facility] [address] [place] [phone], [facility] [phone] * PREPARE (CROSSMATCH) RBC UNIT(S), 2 Units (10/06/2022 1:17 AM CDT) Pathologist [facility] [place] Unit Description AS1 LR PRBC [facility] Unit ABO B [facility] B[facility] Unit Rh POS [facility] Product Number R02 [facility] B LOOD [facility] Unit Donor # [id number] [facility] Unit Status released [facility] BLOO D BANK LAB Product Code [id number] [facility] OD BANK LAB Blood Type Barcode 7300 [facility] Expiration Date [id number] S BLOOD BANK LAB Unit Description -1 LR PRBC LV [facility] Unit ABO B [facility] B[facility] Unit Rh POS [facility]OD [facility] Product Number R52 [facility] B LOOD [facility]ANK LAB Unit Donor # [id number] [facility] Unit Status released [facility] D [facility] Product Code [id number] [facility] OD BANK LAB Blood Type Barcode 7300 [facility] Expiration Date [id number] S BLOOD BANK LAB Blood Bank BLOOD SPECIMEN / Unknown 10/02/2022 6:49 AM CDT Coy Gómez MD LAB - BLOOD BANK ORD JENISE Performing Organization Address City/[facility]/ZIP Co de Phone Number [facility] [address] [place] [address], [facility] [phone] * PHOSPHORUS BLOOD (10/05/2022 10:34 PM CDT) Pathologist [facility] [place] Phosphorus 4.6 2.9 - 5.1 mg/dL 10/05/2022 11:04 PM CDT [facility] Blood BLOOD SPECIMEN / Unknown Lab Venipuncture / Unknown 10/05/2022 10:34 PM CDT 10/05/2022 10:39 PM CDT Coy Gómez MD LAB - CHEMISTRY ASH [employer]ER [address] [address], [facility] [phone] * MAGNESIUM BLOOD (10/05/2022 10:34 PM CDT) Magnesium 1.6 1.6 - 2.6 mg/dL 10/05/2022 11:04 PM CDT [facility] Blood BLOOD SPECIMEN / Unknown Lab Venipuncture / Unknown 10/05/2022 10:34 PM CDT 10/05/2022 10:39 PM CDT Coy Gómez MD LAB - CHEMISTRY ASH WE[employer]ER [address] [address], [facility] [phone] * (ABNORMAL) CBC W AUTO DIFFERENTIAL (10/05/2022 10:34 PM CDT) WBC 8.9 3.5 - 10.5 10? 3 /uL 10/05/2022 11:09 PM [facility] RBC 3.18(L) 3.80 - 5.20 10? 6 /uL 10/05/2022 11:09 PM [facility] Hemoglobin 9.7(L) 12.0 - 15.6 g/dL 10/05/2022 11:09 PM [facility] Hematocrit 29.2(L) 35.0 - 45.0 % 10/05/2022 11:09 PM [facility] MCV 91.8 80.7 - 98.3 fL 10/05/2022 11:09 PM T [facility] MCH 30.5 26.7 - 34.0 pg 10/05/2022 11:09 PM [facility] MCHC 33.2 30.8 - 35.9 g/dL 10/05/2022 11:09 PM [facility] RDW-SD 45.3 36.0 - 50.0 fL 10/05/2022 11:09 PM [facility] RDW-CV 13.3 11.2 - 14.8 % 10/05/2022 11:09 PM [facility] Platelet Count 239 150 - 400 10? 3 /uL 10/05/2022 11:09 PM [facility] MPV 10.3 9.4 - 12.9 fL 10/05/2022 11:09 PM [facility] nRBC Absolute 0.00 0 10? 3 /uL 10/05/2022 11:09 PM [facility] nRBC Auto 0.0 0 /100 WBC 10/05/2022 11:09 PM [facility] Neutrophils % 67.4 35.0 - 70.0 % 10/05/2022 11:09 PM [facility] Lymphocytes % 18.0(L) 20.0 - 43.0 % 10/05/2022 11:09 PM [facility] Monocytes % 11.6 5.0 - 13.0 % 10/05/2022 11:09 PM [facility] Eosinophils % 1.8 0.0 - 6.0 % 10/05/2022 11:09 PM [facility] Basophil % 0.6 0.0 - 2.0 % 10/05/2022 11:09 PM [facility] Neutrophils Absolute 6.03 1.60 - 7.00 10? 3 /uL 10/05/2022 11:09 PM [facility] Lymphocyte Absolute 1.61 1.10 - 3.90 10? 3 /uL 10/05/2022 11:09 PM [facility] Monocytes Absolute 1.04 0.26 - 1.07 10? 3 /uL 10/05/2022 11:09 PM [facility] Eosinophils Absolute 0.16 0.00 - 0.47 10? 3 /uL 10/05/2022 11:09 PM [facility] Basophils Absolute 0.05 0.00 - 0.08 10? 3 /uL 10/05/2022 11:09 PM [facility] Immature Granulocytes % 0.6 0.0 - 1.0 % 10/05/2022 11:09 PM [facility] Immature Granulocytes Absolute 0.05 10/05/2022 11:09 PM [facility] Blood BLOOD SPECIMEN / Unknown Lab Venipuncture / Unknown 10/05/2022 10:34 PM CDT 10/05/2022 10:39 PM CDT Coy Gómez MD LAB - HEMATOLOGY ORD ERABLES [facility] [address] [place] [address], [facility] [phone] * (ABNORMAL) BASIC METABOLIC PANEL (CALCIUM TOTAL) (10/05/2022 10:34 PM CDT) BUN 19 7 - 26 mg/dL 10/05/2022 11:04 PM [facility] Creatinine 0.53(L) 0.56 - 0.96 mg/dL 10/05/2022 11:04 PM [facility] Sodium 140 136 - 145 mmol/L 10/05/2022 11:04 PM [facility] Potassium 3.7 3.5 - 4.5 mmol/L 10/05/2022 11:04 PM [facility] Chloride 106 98 - 107 mmol/L 10/05/2022 11:04 PM [facility] CO2 25 22 - 29 mmol/L 10/05/2022 11:04 PM [facility] Glucose 118(H) 70 - 115 mg/dL 10/05/2022 11:04 PM [facility] Calcium 8.6 8.4 - 10.2 mg/dL 10/05/2022 11:04 PM [facility] Anion Gap 13 8 - 18 10/05/2022 11:04 PM [facility] BUN/Creatinine Ratio 36(H) 7 - 23 10/05/2022 11:04 PM [facility] Osmolality Calculated 293 270 - 300 mOsm/kg 10/05/2022 11:04 PM CDT [facility] eGFR by CKD-EPI >90 >=90 mL/min/1.7 3 m2 10/05/2022 11:04 PM CDT [facility] Blood BLOOD SPECIMEN / Unknown Lab Venipuncture / Unknown 10/05/2022 10:34 PM CDT 10/05/2022 10:39 PM CDT Coy Gómez MD LAB - CHEMISTRY ASH WEAVER [address] [address], [place] [phone] * PHOSPHORUS BLOOD (10/05/2022 4:36 AM CDT) Phosphorus 3.6 2.9 - 5.1 mg/dL 10/05/2022 7:15 AM CDT [facility] Blood BLOOD SPECIMEN / Unknown Lab Venipuncture / Unknown 10/05/2022 4:36 AM CDT 10/05/2022 6:45 AM CDT Coy Gómez MD LAB - CHEMISTRY ASH WE[employer]ER Performing Organization Address [facility]/ZIP Co de Phone Number [address] [address], [place] [phone] * MAGNESIUM BLOOD (10/05/2022 4:36 AM CDT) Magnesium 1.7 1.6 - 2.6 mg/dL 10/05/2022 7:15 AM CDT [facility] Blood BLOOD SPECIMEN / Unknown Lab Venipuncture / Unknown 10/05/2022 4:36 AM CDT 10/05/2022 6:45 AM CDT Coy Gómez MD LAB - CHEMISTRY ASH [employer]ER Performing Organization Address City/[facility]/ZIP Co de Phone Number [address] [address], [place] [phone] * (ABNORMAL) CBC W AUTO DIFFERENTIAL (10/05/2022 4:36 AM CDT) WBC 9.3 3.5 - 10.5 10? 3 /uL 10/05/2022 6:55 AM [facility] RBC 3.32(L) 3.80 - 5.20 10? 6 /uL 10/05/2022 6:55 AM [facility] Hemoglobin 10.2(L) 12.0 - 15.6 g/dL 10/05/2022 6:55 AM [facility] Hematocrit 30.5(L) 35.0 - 45.0 % 10/05/2022 6:55 AM [facility] MCV 91.9 80.7 - 98.3 fL 10/05/2022 6:55 AM [facility] MCH 30.7 26.7 - 34.0 pg 10/05/2022 6:55 AM [facility] MCHC 33.4 30.8 - 35.9 g/dL 10/05/2022 6:55 AM [facility] RDW-SD 45.2 36.0 - 50.0 fL 10/05/2022 6:55 AM [facility] RDW-CV 13.5 11.2 - 14.8 % 10/05/2022 6:55 AM [facility] Platelet Count 239 150 - 400 10? 3 /uL 10/05/2022 6:55 AM [facility] MPV 10.9 9.4 - 12.9 fL 10/05/2022 6:55 AM [facility] nRBC Absolute 0.00 0 10? 3 /uL 10/05/2022 6:55 AM [facility] nRBC Auto 0.0 0 /100 WBC 10/05/2022 6:55 AM [facility] Neutrophils % 68.2 35.0 - 70.0 % 10/05/2022 6:55 AM [facility] Lymphocytes % 19.3(L) 20.0 - 43.0 % 10/05/2022 6:55 AM [facility] Monocytes % 10.3 5.0 - 13.0 % 10/05/2022 6:55 AM [facility] Eosinophils % 1.4 0.0 - 6.0 % 10/05/2022 6:55 AM [facility] Basophil % 0.5 0.0 - 2.0 % 10/05/2022 6:55 AM [facility] Neutrophils Absolute 6.32 1.60 - 7.00 10? 3 /uL 10/05/2022 6:55 AM [facility] Lymphocyte Absolute 1.79 1.10 - 3.90 10? 3 /uL 10/05/2022 6:55 AM [facility] Monocytes Absolute 0.96 0.26 - 1.07 10? 3 /uL 10/05/2022 6:55 AM [facility] Eosinophils Absolute 0.13 0.00 - 0.47 10? 3 /uL 10/05/2022 6:55 AM [facility] Basophils Absolute 0.05 0.00 - 0.08 10? 3 /uL 10/05/2022 6:55 AM [facility] Immature Granulocytes % 0.3 0.0 - 1.0 % 10/05/2022 6:55 AM [facility] Immature Granulocytes Absolute 0.03 10/05/2022 6:55 AM [facility] Blood BLOOD SPECIMEN / Unknown Lab Venipuncture / Unknown 10/05/2022 4:36 AM CDT 10/05/2022 6:47 AM CDT Coy Gómez MD LAB - HEMATOLOGY ORD ERABLES Performing Organization Address [facility] Co de Phone Number [address] [address] [phone] * (ABNORMAL) BASIC METABOLIC PANEL (CALCIUM TOTAL) (10/05/2022 4:36 AM CDT) BUN 10 7 - 26 mg/dL 10/05/2022 7:15 AM [facility] Creatinine 0.59 0.56 - 0.96 mg/dL 10/05/2022 7:15 AM [facility] Sodium 143 136 - 145 mmol/L 10/05/2022 7:15 AM CDT [facility] Potassium 3.7 3.5 - 4.5 mmol/L 10/05/2022 7:15 AM [facility] Chloride 103 98 - 107 mmol/L 10/05/2022 7:15 AM [facility] CO2 25 22 - 29 mmol/L 10/05/2022 7:15 AM [facility] Glucose 90 70 - 115 mg/dL 10/05/2022 7:15 AM [facility] Calcium 8.3(L) 8.4 - 10.2 mg/dL 10/05/2022 7:15 AM [facility] Anion Gap 19(H) 8 - 18 10/05/2022 7:15 AM [facility] BUN/Creatinine Ratio 17 7 - 23 10/05/2022 7:15 AM [facility] Osmolality Calculated 295 270 - 300 mOsm/kg 10/05/2022 7:15 AM [facility] eGFR by CKD-EPI >90 >=90 mL/min/1.7 3 m2 10/05/2022 7:15 AM [facility] Blood BLOOD SPECIMEN / Unknown Lab Venipuncture / Unknown 10/05/2022 4:36 AM CDT 10/05/2022 6:45 AM CDT Coy Gómez MD LAB - CHEMISTRY ASH WE[employer]ER [facility] Organization Address City/State/ZIP Co de Phone Number [facility] [address] [place] [address], [facility] [phone] * XR CERVICAL SPINE 2 OR 3VW [...] malalignment. Report dictated by Kalin Kumar M.D. (residential program worker) I, Joshua Gaytan, DO have personally reviewed and interpreted this examination/study. > Interpreting Provider: Joshua Gaytan DO on 10/04/2022 12:48 PM Narrative 10/04/2022 12:48 PM CDT PROCEDURE: ??XR CERVICAL SPINE 2 OR 3VW, XR THORACIC SPINE 3VW, DATE/TIME OF EXAM: ??10/04/2022 9:41 AM, LOCATION ??[facility] INDICATION: C79.51: Cancer, metastatic to bone (CMS/HCC) ADDITIONAL CLINICAL INFORMATION: Ordering Provider Reason For Exam: ??post op (accession [id number]), s/p PSIF (accession [id number]) COMPARISON: None. TECHNIQUE: AP and lateral views [...] 3VW, DATE/TIMEOF EXAM: 10/04/2022 9:41 AM, LOCATION [facility] INDICATION: C79.51: Cancer, metastatic to bone (CMS/HCC) ADDITIONAL CLINICAL INFORMATION: Ordering Provider Reason For Exam: post op (accession [id number]), s/pPSIF (accession [id number]) COMPARISON: None. TECHNIQUE: AP and lateral views [...] 1.Postsurgical changes from posterior C2-T2 fusion and C3-M6jclbqdnwejkdw are present with paired rods and interpedicular screws. The surgical hardware appears intact. 2.No evidence of cervical spine fracture or malalignment. Report dictated by Kalin Kumar M.D. (residential program worker) Joshua Mckeon DO have personally reviewed and [...] malalignment. Report dictated by Kalin Kumar M.D. (residential program worker) Joshua Mckeon DO have personally reviewed and interpreted this examination/study. > Interpreting Provider: Jsohua Gaytan DO on 10/04/2022 12:48 PM Narrative 10/04/2022 12:48 PM CDT PROCEDURE: ??XR CERVICAL SPINE 2 OR 3VW, XR THORACIC SPINE 3VW, DATE/TIME OF EXAM: ??10/04/2022 9:41 AM, LOCATION ??[facility] INDICATION: C79.51: Cancer, metastatic to bone (CMS/HCC) ADDITIONAL CLINICAL INFORMATION: Ordering Provider Reason For Exam: ??post op (accession [id number]), s/p PSIF (accession [id number]) COMPARISON: None. TECHNIQUE: AP and lateral views [...] 3VW, DATE/TIMEOF EXAM: 10/04/2022 9:41 AM, LOCATION [facility] INDICATION: C79.51: Cancer, metastatic to bone (CMS/HCC) ADDITIONAL CLINICAL INFORMATION: Ordering Provider Reason For Exam: post op (accession [id number]), s/pPSIF (accession [id number]) COMPARISON: None. TECHNIQUE: AP and lateral views [...] 1.Postsurgical changes from posterior C2-T2 fusion and C3-B3oolugkyiodker are present with paired rods and interpedicular screws. The surgical hardware appears intact. 2.No evidence of cervical spine fracture or malalignment. Report dictated by Kalin Kumar M.D. (residential program worker) I, Joshua Gaytan DO have personally reviewed and interpreted this examination/study. > Interpreting Provider: Joshua Gaytan DO on 10/04/2022 12:48 PM Coy Gómez MD DIAGNOSTIC IMAGING O RDERABLES * PHOSPHORUS BLOOD (10/04/2022 12:07 AM CDT) Phosphorus 3.1 2.9 - 5.1 mg/dL 10/04/2022 1:00 AM CDT [facility] Blood BLOOD SPECIMEN / Unknown Venipuncture / Unknown 10/04/2022 12:07 AM CDT 10/04/2022 12:35 AM CDT Coy Gómez MD LAB - CHEMISTRY ASH WE[employer]ER Performing Organization Address [facility]/ZIP Co de Phone Number [address] [address], [facility] [phone] * MAGNESIUM BLOOD (10/04/2022 12:07 AM CDT) Magnesium 1.8 1.6 - 2.6 mg/dL 10/04/2022 1:00 AM CDT [facility] Blood BLOOD SPECIMEN / Unknown Venipuncture / Unknown 10/04/2022 12:07 AM CDT 10/04/2022 12:35 AM CDT Coy Gómez MD LAB - CHEMISTRY ASH WEAVER Performing Organization Address City/[facility]/ZIP Co de Phone Number [address] [address], [place] [phone] * (ABNORMAL) CBC W AUTO DIFFERENTIAL (10/04/2022 12:07 AM [facility]) WBC 9.2 3.5 - 10.5 10? 3 /uL 10/04/2022 12:45 AM [facility] RBC 3.10(L) 3.80 - 5.20 10? 6 /uL 10/04/2022 12:45 AM [facility] Hemoglobin 9.4(L) 12.0 - 15.6 g/dL 10/04/2022 12:45 AM [facility] Hematocrit 28.7(L) 35.0 - 45.0 % 10/04/2022 12:45 AM [facility] MCV 92.6 80.7 - 98.3 fL 10/04/2022 12:45 AM [facility] MCH 30.3 26.7 - 34.0 pg 10/04/2022 12:45 AM [facility] MCHC 32.8 30.8 - 35.9 g/dL 10/04/2022 12:45 AM [facility] RDW-SD 47.0 36.0 - 50.0 fL 10/04/2022 12:45 AM [facility] RDW-CV 13.9 11.2 - 14.8 % 10/04/2022 12:45 AM [facility] Platelet Count 212 150 - 400 10? 3 /uL 10/04/2022 12:45 AM [facility] MPV 10.1 9.4 - 12.9 fL 10/04/2022 12:45 AM [facility] nRBC Absolute 0.00 0 10? 3 /uL 10/04/2022 12:45 AM [facility] nRBC Auto 0.0 0 /100 WBC 10/04/2022 12:45 AM [facility] Neutrophils % 68.3 35.0 - 70.0 % 10/04/2022 12:45 AM [facility] Lymphocytes % 17.4(L) 20.0 - 43.0 % 10/04/2022 12:45 AM [facility] Monocytes % 13.4(H) 5.0 - 13.0 % 10/04/2022 12:45 AM [facility] Eosinophils % 0.4 0.0 - 6.0 % 10/04/2022 12:45 AM [facility] Basophil % 0.2 0.0 - 2.0 % 10/04/2022 12:45 AM [facility] Neutrophils Absolute 6.25 1.60 - 7.00 10? 3 /uL 10/04/2022 12:45 AM [facility] Lymphocyte Absolute 1.60 1.10 - 3.90 10? 3 /uL 10/04/2022 12:45 AM [facility] Monocytes Absolute 1.23(H) 0.26 - 1.07 10? 3 /uL 10/04/2022 12:45 AM [facility] Eosinophils Absolute 0.04 0.00 - 0.47 10? 3 /uL 10/04/2022 12:45 AM [facility] Basophils Absolute 0.02 0.00 - 0.08 10? 3 /uL 10/04/2022 12:45 AM [facility] Immature Granulocytes % 0.3 0.0 - 1.0 % 10/04/2022 12:45 AM [facility] Immature Granulocytes Absolute 0.03 10/04/2022 12:45 AM [facility] Blood BLOOD SPECIMEN / Unknown Venipuncture / Unknown 10/04/2022 12:07 AM CDT 10/04/2022 12:35 AM CDT Coy Gómez MD LAB - HEMATOLOGY ORD ERABLES Performing Organization Address [facility]/State/[facility] Co de Phone Number [facility] [address] [place] [phone] [phone] * (ABNORMAL) BASIC METABOLIC PANEL (CALCIUM TOTAL) (10/04/2022 12:07 AM CDT) BUN 17 7 - 26 mg/dL 10/04/2022 1:00 AM [facility] Creatinine 0.59 0.56 - 0.96 mg/dL 10/04/2022 1:00 AM [facility] Sodium 141 136 - 145 mmol/L 10/04/2022 1:00 AM [facility] Potassium 3.9 3.5 - 4.5 mmol/L 10/04/2022 1:00 AM [facility] Chloride 104 98 - 107 mmol/L 10/04/2022 1:00 AM [facility] CO2 26 22 - 29 mmol/L 10/04/2022 1:00 AM [facility] Glucose 117(H) 70 - 115 mg/dL 10/04/2022 1:00 AM [facility] Calcium 7.6(L) 8.4 - 10.2 mg/dL 10/04/2022 1:00 AM [facility] Anion Gap 15 8 - 18 10/04/2022 1:00 AM [facility] BUN/Creatinine Ratio 29(H) 7 - 23 10/04/2022 1:00 AM [facility] Osmolality Calculated 295 270 - 300 mOsm/kg 10/04/2022 1:00 AM [facility] eGFR by CKD-EPI >90 >=90 mL/min/1.7 3 m2 10/04/2022 1:00 AM [facility] Blood BLOOD SPECIMEN / Unknown Venipuncture / Unknown 10/04/2022 12:07 AM CDT 10/04/2022 12:35 AM CDT Coy Gómez MD LAB - CHEMISTRY ASH WEAVER [address] [address], [facility] [phone] * PHOSPHORUS BLOOD (10/02/2022 11:25 PM CDT) Phosphorus 4.8 2.9 - 5.1 mg/dL 10/03/2022 12:09 AM [facility] Blood BLOOD SPECIMEN / Unknown Venipuncture / Unknown 10/02/2022 11:25 PM CDT 10/02/2022 11:30 PM CDT Coy Gómez MD LAB - CHEMISTRY [facility] [address] [address], [facility] [phone] * MAGNESIUM BLOOD (10/02/2022 11:25 PM CDT) Magnesium 1.8 1.6 - 2.6 mg/dL 10/03/2022 12:09 AM [facility] Blood BLOOD SPECIMEN / Unknown Venipuncture / Unknown 10/02/2022 11:25 PM CDT 10/02/2022 11:30 PM CDT Coy Gómez MD LAB - CHEMISTRY [facility] Organization Address City/State/ZIP Co de Phone Number [facility] [address] [place] [address], [facility] [phone] * (ABNORMAL) CBC W AUTO DIFFERENTIAL (10/02/2022 11:25 PM CDT) WBC 11.9(H) 3.5 - 10.5 10? 3 /uL 10/03/2022 12:07 AM [facility] RBC 3.96 3.80 - 5.20 10? 6 /uL 10/03/2022 12:07 AM [facility] Hemoglobin 12.0 12.0 - 15.6 g/dL 10/03/2022 12:07 AM [facility] Hematocrit 35.1 35.0 - 45.0 % 10/03/2022 12:07 AM [facility] MCV 88.6 80.7 - 98.3 fL 10/03/2022 12:07 AM [facility] MCH 30.3 26.7 - 34.0 pg 10/03/2022 12:07 AM [facility] MCHC 34.2 30.8 - 35.9 g/dL 10/03/2022 12:07 AM [facility] RDW-SD 42.8 36.0 - 50.0 fL 10/03/2022 12:07 AM [facility] RDW-CV 13.2 11.2 - 14.8 % 10/03/2022 12:07 AM [facility] Platelet Count 297 150 - 400 10? 3 /uL 10/03/2022 12:07 AM [facility] MPV 10.2 9.4 - 12.9 fL 10/03/2022 12:07 AM [facility] nRBC Absolute 0.00 0 10? 3 /uL 10/03/2022 12:07 AM [facility] nRBC Auto 0.0 0 /100 WBC 10/03/2022 12:07 AM [facility] Neutrophils % 84.5(H) 35.0 - 70.0 % 10/03/2022 12:07 AM [facility] Lymphocytes % 8.4(L) 20.0 - 43.0 % 10/03/2022 12:07 AM [facility] Monocytes % 6.5 5.0 - 13.0 % 10/03/2022 12:07 AM [facility] Eosinophils % 0.0 0.0 - 6.0 % 10/03/2022 12:07 AM [facility] Basophil % 0.2 0.0 - 2.0 % 10/03/2022 12:07 AM [facility] Neutrophils Absolute 10.06(H) 1.60 - 7.00 10? 3 /uL 10/03/2022 12:07 AM [facility] Lymphocyte Absolute 1.00(L) 1.10 - 3.90 10? 3 /uL 10/03/2022 12:07 AM [facility] Monocytes Absolute 0.77 0.26 - 1.07 10? 3 /uL 10/03/2022 12:07 AM [facility] Eosinophils Absolute 0.00 0.00 - 0.47 10? 3 /uL 10/03/2022 12:07 AM [facility] Basophils Absolute 0.02 0.00 - 0.08 10? 3 /uL 10/03/2022 12:07 AM [facility] Immature Granulocytes % 0.4 0.0 - 1.0 % 10/03/2022 12:07 AM [facility] Immature Granulocytes Absolute 0.05 10/03/2022 12:07 AM [facility] [facility] Blood BLOOD SPECIMEN / Unknown Venipuncture / Unknown 10/02/2022 11:25 PM CDT 10/02/2022 11:30 PM CDT Coy Gómez MD LAB - HEMATOLOGY ORD ERABLES [facility] [address] [place] [address], [facility] [phone] * (ABNORMAL) BASIC METABOLIC PANEL (CALCIUM TOTAL) (10/02/2022 11:25 PM CDT) BUN 16 7 - 26 mg/dL 10/03/2022 12:09 AM [facility] Creatinine 0.61 0.56 - 0.96 mg/dL 10/03/2022 12:09 AM [facility] Sodium 139 136 - 145 mmol/L 10/03/2022 12:09 AM [facility] Potassium 4.5 3.5 - 4.5 mmol/L 10/03/2022 12:09 AM [facility] Chloride 105 98 - 107 mmol/L 10/03/2022 12:09 AM [facility] CO2 21(L) 22 - 29 mmol/L 10/03/2022 12:09 AM [facility] Glucose 129(H) 70 - 115 mg/dL 10/03/2022 12:09 AM [facility] Calcium 7.9(L) 8.4 - 10.2 mg/dL 10/03/2022 12:09 AM [facility] Anion Gap 18 8 - 18 10/03/2022 12:09 AM [facility] BUN/Creatinine Ratio 26(H) 7 - 23 10/03/2022 12:09 AM [facility] Osmolality Calculated 291 270 - 300 mOsm/kg 10/03/2022 12:09 AM [facility] eGFR by CKD-EPI >90 >=90 mL/min/1.7 3 m2 10/03/2022 12:09 AM [facility] Blood BLOOD SPECIMEN / Unknown Venipuncture / Unknown 10/02/2022 11:25 PM CDT 10/02/2022 11:30 PM CDT Coy Gómez MD LAB - CHEMISTRY ASH WEAVER Performing Organization Address City/[facility]/ZIP Co de Phone Number [address] [address], [facility] [phone] * (ABNORMAL) PHOSPHORUS BLOOD (10/02/2022 2:30 PM CDT) Pathologist [facility] [place] Phosphorus 5.3(H) 2.9 - 5.1 mg/dL 10/02/2022 3:06 PM CDT [facility] Blood BLOOD SPECIMEN / Unknown Venipuncture / Unknown 10/02/2022 2:30 PM CDT 10/02/2022 2:41 PM CDT Coy Gómez MD LAB - CHEMISTRY ASH WEAVER Performing Organization Address City/[facility]/ZIP Co de Phone Number [address] [address], [facility] [phone] * MAGNESIUM BLOOD (10/02/2022 2:30 PM CDT) Pathologist [facility] [place] Magnesium 1.9 1.6 - 2.6 mg/dL 10/02/2022 3:06 PM CDT [facility] Blood BLOOD SPECIMEN / Unknown Venipuncture / Unknown 10/02/2022 2:30 PM CDT 10/02/2022 2:41 PM CDT Coy Gómez MD LAB - CHEMISTRY ASH WEAVER Performing Organization Address City/[facility]/ZIP Co de Phone Number [address] [address], [place] [phone] * (ABNORMAL) BASIC METABOLIC PANEL (CALCIUM TOTAL) (10/02/2022 2:30 PM CDT) Pathologist [facility] [place] BUN 16 7 - 26 mg/dL 10/02/2022 3:06 PM CDT [facility] Creatinine 0.75 0.56 - 0.96 mg/dL 10/02/2022 3:06 PM CDT [facility] Sodium 141 136 - 145 mmol/L 10/02/2022 3:06 PM CDT [facility] Potassium 4.1 3.5 - 4.5 mmol/L 10/02/2022 3:06 PM [facility] Chloride 106 98 - 107 mmol/L 10/02/2022 3:06 PM [facility] CO2 23 22 - 29 mmol/L 10/02/2022 3:06 PM [facility] Glucose 143(H) 70 - 115 mg/dL 10/02/2022 3:06 PM [facility] Calcium 7.8(L) 8.4 - 10.2 mg/dL 10/02/2022 3:06 PM [facility] Anion Gap 16 8 - 18 10/02/2022 3:06 PM [facility] BUN/Creatinine Ratio 21 7 - 23 10/02/2022 3:06 PM [facility] Osmolality Calculated 296 270 - 300 mOsm/kg 10/02/2022 3:06 PM [facility] eGFR by CKD-EPI 89(L) >=90 mL/min/1.7 3 m2 10/02/2022 3:06 PM [facility] Blood BLOOD SPECIMEN / Unknown Venipuncture / Unknown 10/02/2022 2:30 PM CDT 10/02/2022 2:41 PM CDT Coy Gómez MD LAB - CHEMISTRY ASH WEAVER [facility] Organization Address City/State/ZIP Co de Phone Number [facility] [address] [place] [address], [facility] [phone] * (ABNORMAL) CBC W AUTO DIFFERENTIAL (10/02/2022 12:59 PM CDT) WBC 9.9 3.5 - 10.5 10? 3 /uL 10/02/2022 1:37 PM CDT [facility] RBC 4.06 3.80 - 5.20 10? 6 /uL 10/02/2022 1:37 PM [facility] Hemoglobin 12.3 12.0 - 15.6 g/dL 10/02/2022 1:37 PM T [facility] Hematocrit 37.7 35.0 - 45.0 % 10/02/2022 1:37 PM [facility] MCV 92.9 80.7 - 98.3 fL 10/02/2022 1:37 PM [facility] MCH 30.3 26.7 - 34.0 pg 10/02/2022 1:37 PM [facility] MCHC 32.6 30.8 - 35.9 g/dL 10/02/2022 1:37 PM [facility] RDW-SD 45.9 36.0 - 50.0 fL 10/02/2022 1:37 PM [facility] RDW-CV 13.6 11.2 - 14.8 % 10/02/2022 1:37 PM [facility] Platelet Count 236 150 - 400 10? 3 /uL 10/02/2022 1:37 PM [facility] MPV 10.3 9.4 - 12.9 fL 10/02/2022 1:37 PM [facility] Immature Platelet Fraction 2.3 1.1 - 6.2 % 10/02/2022 1:37 PM [facility] nRBC Absolute 0.00 0 10? 3 /uL 10/02/2022 1:37 PM [facility] nRBC Auto 0.0 0 /100 WBC 10/02/2022 1:37 PM [facility] Neutrophils % 87.3(H) 35.0 - 70.0 % 10/02/2022 1:37 PM [facility] Lymphocytes % 10.0(L) 20.0 - 43.0 % 10/02/2022 1:37 PM [facility] Monocytes % 1.8(L) 5.0 - 13.0 % 10/02/2022 1:37 PM [facility] Eosinophils % 0.2 0.0 - 6.0 % 10/02/2022 1:37 PM [facility] Basophil % 0.4 0.0 - 2.0 % 10/02/2022 1:37 PM [facility] Neutrophils Absolute 8.64(H) 1.60 - 7.00 10? 3 /uL 10/02/2022 1:37 PM [facility] Lymphocyte Absolute 0.99(L) 1.10 - 3.90 10? 3 /uL 10/02/2022 1:37 PM CDT [facility] Monocytes Absolute 0.18(L) 0.26 - 1.07 10? 3 /uL 10/02/2022 1:37 PM CDT [facility] Eosinophils Absolute 0.02 0.00 - 0.47 10? 3 /uL 10/02/2022 1:37 PM CDT [facility] Basophils Absolute 0.04 0.00 - 0.08 10? 3 /uL 10/02/2022 1:37 PM CDT [facility] Immature Granulocytes % 0.3 0.0 - 1.0 % 10/02/2022 1:37 PM CDT [facility] Immature Granulocytes Absolute 0.03 10/02/2022 1:37 PM CDT [facility] Blood BLOOD SPECIMEN / Unknown Venipuncture / Unknown 10/02/2022 12:59 PM CDT 10/02/2022 1:27 PM CDT Coy Gómez MD LAB - HEMATOLOGY ORD ERABLES Performing Organization Address [facility] Co de Phone Number [address] [address] [phone] * PT-INR [facility] (10/02/2022 12:59 PM CDT) PT 12.9 12.1 - 14.8 Seconds 10/02/2022 1:54 PM CDT [facility] INR 1.0 See Comment 10/02/2022 1:54 PM T [facility] Comment:The suggested therap eutic range for standard coumadin (warfarin) therapy is an INR of 2.0-3.0. For high-risk patients (Mechanical Mitral Valve Prosthesis, etc.), the suggested prophylactic therapeutic range is an INR of 2.5-3.5. Blood BLOOD SPECIMEN / Unknown Venipuncture / Unknown 10/02/2022 12:59 PM CDT 10/02/2022 1:27 PM CDT Coy Gómez MD LAB - COAGULATION OR DERABLES Performing Organization Address City/[facility]/ZIP Co de Phone Number [address] [place] [address], [facility] [phone] * [place] RONNY SURGERY (10/02/2022 11:17 AM CDT) Narrative [facility] RADIOLOGY - 10/02/2022 11:18 AM CDT Fluoroscopy was used for this exam in the OR. Please see the Operative report. Coy Gómez MD FLUOROSCOPY ORDERABL ES Performing Organization Address [facility] de Phone Number [facility] RADIOLOGY * FL OARM SURGERY (10/02/2022 11:17 AM CDT) Narrative [facility] RADIOLOGY - 10/02/2022 11:48 AM CDT Fluoroscopy was used for this exam in the OR. Please see the Operative report. Coy Gómez MD FLUOROSCOPY ORDERABL ES Performing Organization Address [facility] de Phone Number [facility] RADIOLOGY * PATHOLOGY TISSUE (10/02/2022 9:59 AM CDT) Case Report Surgical Pathology Report ? Case: [id number] ? Authorizing Provider: ??Coy Gómez MD ?Collected: ? 10/02/2022 09:59 AM ? Ordering Location: ? [facility] ?Received: ?10/02/2022 11:08 AM ? Pathologist: ? Edin Scales MD ? Specimens: ?? A) - Spinal Cord, extradural tumor ? B) - Spinal Cord, extradural tumor ? 10/06/2022 1:13 PM [facility] Final Diagnosis Spinal cord, extradural tumor, resection (A): - Metastatic carcinoma. - See comment. Spinal cord, extradural tumor, resection (B): - Metastatic carcinoma. - See comment. Comment: The histopathological and immunohistochemical features of this tumor, along with the patient's history, are compatible with a metastatic thyroid carcinoma. 10/06/2022 1:13 PM [facility] Microscopic Description and Comment Frozen [...] negative for CK20 immunostaining. 10/06/2022 1:13 PM [facility] Clinical History 10/06/2022 1:13 PM [facility] Gross Description The requisition and specimen(s) are identified with the patient's Elizabethsarina Hogan. Received fresh, specimen A, are 2 pink 0.5 x 0.3 x 0.1 cm rubbery tissues which are submitted for touch prep and frozen section. The frozen section residue is entirely submitted in 1 cassette labeled A1. /ML The requisition and specimen(s) are identified with the patient's Elizabethsarina Hogan. Received in formalin, specimen B, is an irregular 1.2 x 0.5 x 0.2 cm pink-yellow rubbery tissue which is submitted in toto in 1 cassette labeled B1. /ML 10/06/2022 1:13 PM CDT [facility] PATHOLOG[facility] LAB Disclaimer The performance characteristics of all immunohistochemical and indirect immunofluorescence stains (if any) cited in this report were determined by the Histopathology Laboratory of [facility]. Some of these tests were developed by [...] attending (teaching) pathologist. 10/06/2022 1:13 PM CDT [facility] Embedded Images 10/06/2022 1:13 PM CDT [facility] Biopsy, Excision ENTIRE SPINAL CORD / Unknown 10/02/2022 9:59 AM CDT 10/02/2022 11:08 AM CDT Comment:Pre-op diagnosis: spine tumor Biopsy, Excision ENTIRE SPINAL CORD / Unknown 10/02/2022 10:42 AM CDT 10/02/2022 2:56 PM CDT Comment:Pre-op diagnosis: spine tumor Coy Gómez MD LAB - PATHOLOGY/CYTO LOGY ORDERABLES Performing Organization Address [facility] Phone Number [facility] LAB [facility] [phone] * TYPE + SCREEN PANEL (10/02/2022 6:41 AM CDT) Antibody Screen NEG 7:31 AM CDT [facility] BLOOD BANK LAB ABO Rh B POS 10/02/2022 7:31 AM CDT [facility] B[facility]OD [facility] LAB Blood Bank BLOOD SPECIMEN / Unknown Venipuncture / Unknown 10/02/2022 6:41 AM CDT 10/02/2022 6:49 AM CDT Coy Gómez MD LAB - BLOOD BANK ORD ERABLES [facility] B[facility]OD [facility] LAB [address] [place] [address], [facility] [phone] documented in this encounter Visit Diagnoses Diagnosis [...] Starting on Josi 10/01/22 at 2028, Until 10/07/22 at 1312, Flush peripheral IV catheter with [...] mcg 0.5 mcg, Oral, 2 TIMES DAILY (04,16), First dose on Wed10/02/22 at 1600, Until [...] CDT 20 mg fish oil/omega-3 fatty acids (Promega;Cardi-[place] 3) capsule 1,000 mg 1,000 mg, Oral, [...] Kwan RN)1744 ($ Given - Provider: Felicity Kwan RN) [...] 0835 ($ Given - Provider: Felicity Kwan RN)210 ($ Given - Provider: Yaneth Camejo RN) 0827 ($ Given - Provider: Ellen Huston RN) calcitriol (Rocaltrol) capsule 0.5 mcg 0.5 mcg, Oral, 2 TIMES DAILY (), First dose on Wed10/02/22 at 1600, Until Discontinued 0552 ($ Given - Provider: Jarocho Higgins RN)1507 ($ Given - Provider: Prvain Dennis RN) 0516 ($ Given - Provider: [...] ($ Given - Provider: Pravin Dennis RN) 08 ($ Given - Provider: Felicity Kwan, JOSY) 0828 ($ Given - Provider: Ellen Huston, JOSY) famotidine (Pepcid) tablet 20 mg 20 mg, Oral, 2 TIMES DAILY, First dose on Wed10/02/22 at 1130, Until Discontinued 0839 ($ Given - Provider: Pravin Dennis RN)2050 ($ Given - Provider: Yaneth Camejo RN) 08 ($ Given - Provider: Felicity Kwan, JOSY)2054 ($ Given - Provider: Yaneth Camejo, JOSY) 0828 ($ Given - Provider: Ellen Huston, JOSY) fish oil/omega-3 fatty acids (Promega;Cardi-[place] 3) capsule 1,000 mg 1,000 mg, Oral, [...] JOSY) 0835 ($ Given - Provider: Felicity Kwan [...] 0516 ($ Given - Provider: Yaneth Camejo, JOSY)1459 ($ Given - Provider: Felicity Kwan RN)2103 ($ Given - Provider: Yaneth Camejo RN) 0532 ($ Given - Provider: Yaneth Camejo [...] ($ Given - Provider: Ellen Huston, RN) lidocaine (Lidoderm) 5 % patch 1 [...] Refused-Patient) 0829 ($ Given - Provider: Felicity Kwan, JOSY) 0827 ($ Given - Provider: Ellen Huston, RN) nicotine (Nicoderm CQ) patch 14 mg [...] RN) 0829 ($ Given - Provider: Ellen Huston RN) pantoprazole EC (Protonix) tablet 40 mg 40 [...] Given - Provider: Felicity Kwan RN) 0828 (Not Administered - Provider: Ellen Huston [...] dose on Wed10/02/22 at 1130, Until Discontinued 840 (Not Administered - Provider: Pravin Dennis RN - Reason: Refused-Patient)1412 (Not Administered - Provider: Pravin Dennis RN [...] ($ Given - Provider: Yaneth Camejo RN) 05 ($ Given - Provider: Yaneth Camejo RN) 040 ($ Given - Provider: Yaneth Camejo RN) [...] JOSY) 0407 ($ Given - Provider: Yaneth Camejo [...] MAR. 1803 ($ Given - Provider: Felicity Kwan, JOSY) [...] swallow. documented in this encounter Care Teams Compliance Examiner Relationship Specialty Start Date End Date Taniya Grimes MD [address] [place] [phone] PCP - General 07/15/22 10/06/22 Adriana Adams DO [address] [place] [address] Resident - PCP Internal Medicine 04/06/22 01/12/23 documented as of this encounter
--- OUTSIDE RECORDS SUMMARY | 2024-07-26 08:32 | XMS_ITS | Encounter Summary ---
Author Organization [facility] Health Address [address] [facility] [place] [address] Care Team Providers Care Ultrasound Supervisor Name Role Phone Adriana Adams DO Unavailable Taniya Grimes MD Primary Care Provider [phone] Reason for Visit * Reason Onset Date Comments Future Appointment 09/14/2022 Encounter Details Date Type Department Care Team (Late st Contact Info) Description 09/14/[address] [address] Haleigh Hurt, JOSY Future Appointment [...] Coronavirus/COVID-19? No / Unsure 09/02/2022 2:14 PM REGULATORY AFFAIRS STRATEGY SPECIALIST documented as of this encounter Functional [...] Miscellaneous Notes * Telephone Encounter - Haleigh Hurt, RN - 09/14/2022 11:14 AM CDT Called patient to set up follow-up with Dr. Mcintosh and [facility]. Patient agreed to come in tomorrow, 09/15/22, at 1PM. documented in this encounter Plan of Treatment Upcoming Encounters Date Type Department Care Team (Late st Contact Info) Description 08/02/2024 2:20 PM REGULATORY AFFAIRS STRATEGY SPECIALIST Appointment [facility] [address] [place] [address] 08/02/2024 3:00 PM REGULATORY AFFAIRS STRATEGY SPECIALIST Office Visit [facility] - Hematology/Oncology [address] [place] [phone] Remi Beckett MD [address] [place] [phone] 08/18/2024 1:45 PM REGULATORY AFFAIRS STRATEGY SPECIALIST Office [facility] - ENT [address] [place] [phone] Neri Delgado MD [address] [place] [phone] 08/30/2024 2:20 PM REGULATORY AFFAIRS STRATEGY SPECIALIST Appointment [facility] [address] [place] [address] documented as of this encounter Visit Diagnoses Not on filedocumented in this encounter Care Teams Ultrasound Supervisor Relationship Specialty Start Date End Date Taniya Grimes MD [address] [place] [address] OF [facility] [place] [phone] PCP - General 07/15/22 10/06/22 Adriana Adams DO [address] [place] [address] Resident - PCP Internal Medicine 04/06/22 01/12/23 documented as of this encounter
--- OUTSIDE RECORDS SUMMARY | 2024-07-26 08:32 | XMS_ITS | Encounter Summary ---
Author Organization [facility] Health Address [address] [facility] [place] [address] Care Team Providers Care Warehouse Distribution Specialist Name Role Phone Adriana Adams DO Unavailable Taniya Grimes MD Primary Care Provider Reason for Visit * Reason Onset Date Comments Follow-up 09/30/2022 Encounter Details Date Type Department Care Team ([facility] Contact Info) Description 09/30/2022 Telephone [facility] [address] [facility], [place] [phone] Heather Oreilly Follow-up Social History Tobacco Use [...] Coronavirus/COVID-19? No / Unsure 09/02/2022 2:14 PM RETURNED CASE INSPECTOR documented as of this encounter Functional [...] encounter Miscellaneous Notes * Telephone Encounter - Heather Oreilly - 09/30/2022 4:29 PM CDT Contact patient. Reviewed surgery instructions for Wednesday arrival time 0530am to [facility] 1st floor Rubi Díaz. NPO after midnight. Patient verbalize understanding with no further questions. documented in this encounter Plan of Treatment Upcoming Encounters Date Type Department Care Team (Late st Contact Info) Description 08/02/2024 2:20 PM RETURNED CASE INSPECTOR Appointment [facility] [address] [place] [phone] 08/02/2024 3:00 PM RETURNED CASE INSPECTOR Office Visit [facility] - Hematology/Oncology [address] [place] [phone] Remi Beckett MD [address] [place] [phone] 08/18/2024 1:45 PM RETURNED CASE INSPECTOR [facility] [address] [place] [phone] Neri Delgado MD [address] [place] [phone] 08/30/2024 2:20 PM RETURNED CASE INSPECTOR Appointment [facility] [address] [place] [phone] documented as of this encounter Visit Diagnoses Not on filedocumented in this encounter Care Teams Warehouse Distribution Specialist Relationship Specialty Start Date End Date Taniya Grimes MD [address] [place] [address] OF [facility] [place] [address] PCP - General 07/15/22 10/06/22 Adriana Adams DO [address] [place] [address] Resident - PCP Internal Medicine 04/06/22 01/12/23 documented as of this encounter
--- OUTSIDE RECORDS SUMMARY | 2024-07-26 08:32 | XMS_ITS | Encounter Summary ---
Author Organization [facility] Address [address] [place] [address] Care Team Providers Care Electrical System Specialist Name Role Phone Adriana Adams DO Unavailable Taniya Grimes MD Primary Care Provider Joseph Manzanares MD Primary Care Provider [phone] Reason for Referral * (Routine) - Closed Specialty Diagnoses / Procedures Referred By Contac t Referred To Contact Procedures Follow up with provider Coy Gómez MD [address] [place] [address] Coy Gómez MD [address] [place] [address] Referral ID Status Reason Start Date Expiration Date Visits Re quested Visits Authorized [id number] Closed 10/06/2022 10/06/2023 1 1 * Transfer of Care (Routine) - Closed Specialty Diagnoses / Procedures Referred By Contac t Referred To Contact Procedures Follow up with Primary Care Provider (PCP) Coy Gómez MD [address] [place] [address] Referral ID Status Reason Start Date Expiration Date Visits Re quested Visits Authorized [id number] Closed 10/06/2022 10/06/2023 1 1 * Home Health Care (Routine) - Closed Specialty Diagnoses / Procedures Referred By Yuan robins Referred To Contact Home Health Services Diagnoses Cancer, metastatic to bone (HCC) Cervical spine tumor Anaya Bach APRN-CNP [facility] [facility] [address] [place] [address] [facility] Scheduling [address] [place] [address] Referral ID Status Reason Start Date Expiration Date V isits Requested Visits Authorized [id number] Closed Specialty Services Required 10/05/2022 10/05/2023 999 999 Reason for Visit * Auth/Cert (Routine) Specialty Diagnoses / Procedures Referred By Yuan robins Referred To Contact Diagnoses Cervical spine tumor spine tumor Procedures FUSION POSTERIOR CERVICAL (PCF) Referral ID Status Reason Start Date Expiration Date Visits Re quested Visits Authorized [id number] 1 1 Encounter Details Date Type Department Care Team (Latest Contact Info) Description 10/02/2022 5:55 AM CDT - 10/07/2022 12:12 PM CDT Hospital Encounter [facility] 7[address] ACUTE [address] [place] [address] Coy Gómez MD [address] [facility] [address] [facility] [place] [address] Surgery General Discharge Disposition: Home Health Care [...] Date Recorded PHQ2 TOTAL SCORE 0 09/02/2022 [facility] - [...] Coronavirus/COVID-19? No / Unsure 09/02/2022 2:14 PM ROTARY CUTTER OPERATOR documented as of this encounter Last [...] Physician Discharge Summary Patient ID: Elizabeth Caicedo [id number] 62 year old 1960 Admit date: 10/02/2022 [...] old female with metastatic??high risk papillary thyroid cancer??(uX6qQ2lDu - IVb) s/p??salvage total thyroidectomy and neck [...] place, time) Motor: ?? Deltoid Bicep Tricep Pediatric Physiatrist Wrist Ext Finger ext Hip Flexor Quad Hamstring Tib Ant Gastroc EHL Right 5 5 5 5 5 5 5 5 5 5 5 5 Left 1 1 4 4+ 4+ 4+ 4 5 5 5 5 5 ? Disposition:home Patient Instructions: Numb cream Neurosurgery Inpatient Discharge Instructions If you have any questions about the instructions below please call: [phone], ask for the Neurosurgery resident aviation engineer. Diet: regular diet Wound care after surgery: [...] you were sent home on please call [phone], and ask for the Neurosurgery resident aviation engineer. Do not sign important papers or make [...] clinic appointment information call Heather Oreilly at [phone]. - Also, you can call Outpatient Wellness Trainer at [phone] 2) Please see your family doctor for [...] any questions about these instructions please call: [phone], ask for the Neurosurgery resident aviation engineer. This list of medications is preliminary and [...] 1 CAPSULE BY MOUTH TWICE A DAY KYKPDAN-KPIUVYQJO-PRUF PO Take by mouth once daily cetirizine [...] fluticasone propionate (FLONASE) 50 MCG/ACT nasal spray [place] 2 (two) sprays into each nostril oncedaily gabapentin (Neurontin) 300 MG capsule Take 1 (one) capsule by mouth 3 times daily ZEYYTF-YDUUOCJAA-MQW-C-HYAL PO Take 1 tablet by mouth 3 [...] [address] DIV OF GEN [facility] [address] Next Steps: Follow up Coy Gómez MD Specialty: Neurological Surgery [address] DIV OF NEUROSURGERY [facility] [address] Next Steps: Follow up Von Ray MD, 10/06/2022 at 4:11 PM documented in this encounter Discharge Instructions * Discharge Instructions* Von Ray MD - 10/06/2022 4:15 PM CDT Numb cream Neurosurgery Inpatient Discharge Instructions If you have any questions about the instructions below please call: [phone], ask for the Neurosurgery resident aviation engineer. Diet: regular diet Wound care after surgery: [...] you were sent home on please call [phone], and ask for the Neurosurgery resident aviation engineer. Do not sign important papers or make [...] clinic appointment information call Heather Oreilly at [phone]. - Also, you can call Outpatient Wellness Trainer at [phone] 2) Please see your family doctor for [...] any questions about these instructions please call: [phone], ask for the Neurosurgery resident aviation engineer. documented in this encounter Medications at Time [...] A DAY 60 capsule 11 02/22/2022 05/28/2023 OVXVQJO-LXLBXOHLA-DUPN PO Take by mouth once daily 06/13/2023 [...] fluticasone propionate (FLONASE) 50 MCG/ACT nasal spray [place] 2 (two) sprays into each nostril once daily 48 g 10/20/2021 11/25/2022 gabapentin (Neurontin) 300 MG capsuleIndications:Nicole favio osteoarthritis of left hip Take 1 (one) capsule by mouth 3 times daily 90 capsule 5 04/06/2022 11/19/2022 UZJYUZ-MXSFDKQEU-ULY-C -HYAL PO Take 1 tablet by mouth [...] Kaye - 10/07/2022 12:12 PM CDT Discharge Wellness Trainer received request from to arrange follow-up appointment for Patientwith Neurosurgery. This feature writer called [phone] and spoke with Zeny . Wellness Trainer was able to obtain a follow-up appointment for Patient with CASINO OPERATIONS SUPERVISOR Merle Parker on 11/12/22 at 3:15pm. This feature writer called [phone]. Per patient verbalized understanding of future appointment. No further follow-up needs from director of quality control indicated at this time. Shannon Kaye, Discharge Wellness Trainer 10/08/2022 * Myra Cho - 10/07/2022 12:12 PM CDT Discharge Wellness Trainer received request from Dr. Ray to reschedule follow-up appointment for Patient with Neurosurgery . This feature writer called [phone] and spoke with Juma. Wellness Trainer was able to obtain follow-up appointment for Patient with Dr. Gómez on Friday January 13, 2023 at 10:00 am. No further follow-up needs from director of quality control indicated at this time. Myra Cho, Discharge Wellness Trainer 10/22/2022 * Ellen Huston RN - 10/07/2022 [...] old female with metastatic??high risk papillary thyroid cancer??(cJ4hW3xTk - IVb) s/p??salvage total thyroidectomy and neck [...] mg, Oral, BID fish oil/omega-3 fatty acids (Promega;Cardi-[place] 3) capsule 1,000 mg, Oral, TID WC [...] place, time) Motor: ?? Deltoid Bicep Tricep Pediatric Physiatrist Wrist Ext Finger ext Hip Flexor Quad [...] From 5pm to 7am please refer to [employer]) to reach the resident aviation engineer (changes daily) Secure chat can be used [...] Case Management Initial Assessment Anticipated Discharge Date: 04/04/23 - Pending pain conctrol Transportation at Discharge: [...] patient's preference is to stay within the 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 10/05 POSTOP EVALUATION NOTE. Procedure: C2-T2 fusion and decompression C3-C7 and resection extramedullary spine tumor [facility] referrals pending. Payer/Plan Subscriber Name Rel Member # Group # [employer] * ELIZABETH CAICEDO [id number] [facility] [place] CLAIMS DEPARTMENT, [address] Continued Care and Services - Admitted Since 10/02/2022 Home Medical Care Service Provider Request Status Selected Services Address Phone Fax Patient Preferred [facility] Pending - Request Sent N/A [address] [facility] [address], [facility] [address] [phone] -- [facility] Pending - Request Sent N/A [address] [facility] [address] [phone] -- [facility] Pending - Request Sent N/A [address] [facility] [address] [address] -- [facility] (formerly [facility]) Pending - Request Sent N/A [address] [facility] [address] -- [facility] - Pending - Request Sent N/A [address], [facility] [address] -- Josselyn Brown Pending - Request Sent N/A [address], [address], [place] [address] -- Lives with: Spouse Physical Limitations: Wheelchair Bound Has Medicaid heating worker through vendor: [employer] Requires Assistance With: Mobility;Hygiene;Housekeeping;Meal Preparation;Medication Administration;Shopping - assistance from sister and daughter Preferred Pharmacy: [facility]/pharmacy #[id number] - [address] [facility] [address] [address] [facility] [address] Advance Directive: No Advance Directive Information Given: Refused Information Would you like assistance on completing and executing or revising an Advance Directive?: No READMISSION RISK SCORE is 14 at 4:00 PM 10/06/2022. Met with patient at bedside Family Support (name and phone): Extended Emergency Contact Information Primary Emergency Contact: Boogie Caicedo Address: [address] [place] [address] Relation: Spouse Secondary Emergency Contact: isaac jules Address: [address] [place] [address] Mobile Relation: Sister Patient or b2b outside sales representative requests care coordination reach out to family or caregiver listed above regarding discharge planning and at time of discharge? No Patient/Family provided with list of resources? No Preferred Provider / High Quality Network List given?: No Reason for provider choice: Pt. choice - Pt. choice Equipment at Home: Walker-2 Wheeled List DME pt. requires but does not have.: None Newspaper Copy Editor Referral: No Will continue to follow. For any questions or needs please contact: Geriatric Nurse Practitioner Name/Phone number: Torsten Lynn RN [phone] * [...] Music Therapist Sacha Ngo visited patient in [facility] room. Patient was observed sitting up in chair, alert and oriented. Patient stated that she loves music. During interventions, patient closed her eyes, breathed slowly and deeply, and mouthed familiar lyrics. At conclusion of session, no nonverbal indicators of distress observed, and patient reported increased feelings of relaxation and calm. Sacha Ngo, [facility], [place]- 10/06/2022 10:31 AM * Yaneth Camejo RN [...] desired activity. Outcome: Progressing * Fabio Sheikh APRN-RECREATION SPECIALIST - 10/06/2022 1:46 AM CDT Neurosurgery Progress Note Elizabeth Caicedo 10/06/22 Hospital Day: 4 Subjective: Patient is a 62 year old female with metastatic??high risk papillary thyroid cancer??(jX5iB2bDb - IVb) s/p??salvage total thyroidectomy and neck [...] Oral, BID ?? fish oil/omega-3 fatty acids (Promega;Cardi-[place] 3) capsule 1,000 mg, Oral, TID WC [...] place, time) Motor: ?? Deltoid Bicep Tricep Pediatric Physiatrist Wrist Ext Finger ext Hip Flexor Quad [...] for pain control PT: home with HH [place] [facility] for VTE ppx Pepcid for GI ppx SPL evaluation- mild aspiration risk Advance diet as tolerated Activity as tolerated Fabio Sheikh APRN-RECREATION SPECIALIST 1:46 AM 10/06/22 To reach Neurosurgery for questions: From 7am to 5pm please call the [facility] for Neurosurgery From 5pm to 7am please refer to [employer]) to reach the resident aviation engineer (changes daily) Secure chat can be used for non-urgent issues only, please expect a reasonable amount of time for responses * Natasha Bar, PT - 10/05/2022 4:23 PM CDT [facility] Physical Medicine and Rehabilitation Physical Therapy Progress Note Patient: Elizabeth Caicedo [facility] Record Number: [id number] Date of : 1960 Age: [age] year [...] will ascend/descent 3 steps with minimal assist Database Security Expert Goal(s): Patient to be independent with functional [...] heels, side tray in front of pt imerdinner coming soon. * Alli Marrufo SLP - 10/05/2022 3:20 PM CDT [facility] Physical Medicine and Rehabilitation Bedside Swallow Assessment Patient: Elizabeth Caicedo [facility] Record Number: [id number] Date of : 1960 Age: [age] year [...] Impression - Pharyngeal: Mild Education/Interventions: While performing PROJECT CONSULTANT, Patient was instructed in: goals of treatment [...] precautions., Patient will follow recommended swallowing strategies. Database Security Expert Goal (s): Patient to be independent/baseline with functional mobility and self care and be able to safely discharge to prior level of care. Alli Schmid M.A., [facility]-PROJECT CONSULTANT Speech Language Pathologist [phone] * Pravin Dennis [...] female metastatic high risk papillary thyroid cancer (hT1sN5vPa - IVb) s/psalvage total thyroidectomy??and neck dissection [...] mg, Oral, BID fish oil/omega-3 fatty acids (Promega;Cardi-[place] 3) capsule 1,000 mg, Oral, TID WC [...] preop exam (shownbelow) ? Deltoid Bicep Tricep Pediatric Physiatrist Wrist Ext Finger ext Hip Flexor Quad [...] tolerated - Activity as tolerated - DC PREMIUM NOTE INTEREST CALCULATOR CLERK today - SPL evaluation - Still has [...] female metastatic high risk papillary thyroid cancer (fR8sU0tVi - IVb) s/psalvage total thyroidectomy??and neck dissection [...] mg, Oral, BID fish oil/omega-3 fatty acids (Promega;Cardi-[place] 3) capsule 1,000 mg, Oral, TID WC [...] preop exam (shownbelow) ? Deltoid Bicep Tricep Pediatric Physiatrist Wrist Ext Finger ext Hip Flexor Quad [...] English, PT - 10/03/2022 9:37 AM CDT [facility] Physical Medicine and Rehabilitation Physical Therapy Initial Evaluation Note Patient: Elizabeth Caicedo [facility] Record Number: [id number] Date of : 1960 Age: [age] year [...] will ascend/descent 3 steps with minimal assist Database Security Expert Goal(s): Patient to be independent with functional [...] female metastatic high risk papillary thyroid cancer (zV3oF1wZk - IVb) s/psalvage total thyroidectomy??and neck dissection [...] Oral, BID ?? fish oil/omega-3 fatty acids (Promega;Cardi-[place] 3) capsule 1,000 mg, Oral, TID WC [...] preop exam (shownbelow) ? Deltoid Bicep Tricep Pediatric Physiatrist Wrist Ext Finger ext Hip Flexor Quad [...] preop exam (shownbelow) ?? Deltoid Bicep Tricep Pediatric Physiatrist Wrist Ext Finger ext Hip Flexor Quad [...] with metastatic high risk papillary thyroid cancer (aT8hW0kSi - IVb) s/p salvage total thyroidectomy??requiring??sacrifice of [...] ??? Lymphadenopathy of head and neck region [facility] NEURO SPINAL SURGERY HIGH RISK VARIABLES Metastatic [...] breath) 22 thyroid mass ??? Thyroid cancer (CMS/HCC) 10/14/2020 [...] ??? calcitriol (Rocaltrol) 0.5 MCG capsule ??? [id number]-[id number]-SCHF PO ??? celecoxib (CELEBREX) 200 MG capsule ??? cetirizine (ZYRTEC) 10 MG tablet ??? clonazePAM (KLONOPIN) 0.5 MG tablet ??? cyclobenzaprine (Flexeril) 5 MG tablet ??? famotidine (PEPCID) 20 MG tablet ??? fish oil/omega-3 fatty acids (PROMEGA;CARDI-OMEGA 3) 1000 MG capsule ??? fluticasone propionate (FLONASE) 50 MCG/ACT nasal spray ??? gabapentin (Neurontin) 300 MG capsule ??? XJFPRY-RFDRTYDKD-TCV-C-HYAL PO ??? levothyroxine (Synthroid) 112 MCG tablet [...] alert, appropriate Neuro: a Deltoid Bicep Tricep Pediatric Physiatrist Wrist Ext Finger ext Hip Flexor Quad [...] DATE/TIME OF EXAM: 08/21/2022 3:59 PM, LOCATION [facility] INDICATION: C73: Thyroid cancer (CMS/HCC) E89.0: [...] with metastatic high risk papillary thyroid cancer (kQ0vM7lJz - IVb) s/p salvage total thyroidectomy??requiring??sacrifice of [...] you for this referral. Bina El RN [facility] solutions specialist Liaison [facility] [phone] * Ananya El RN - 10/07/2022 12:12 PM CDT VERIFICATION HAS FINISHED & REFERRAL COMPLETED. Bina El RN [facility] solutions specialist Liaison [facility] [phone] * Darian Carrillo MSW - 10/06/2022 3:39 PM CDTAssociated Order(s): IP CONSULT TO FIRE ALARM MECHANIC SW aware this pt's plan is for home health. CM is aware of this discharge plan. SW to continue to follow for any other SW needs. MARIO Machuca 10/06/2022 * JordansrinivasDariela, RD/LD - 10/03/2022 3:39 PM CDTAssociated Order(s): IP CONSULT TO NUTRITIONAL SERV Initial Nutrition Assessment Brief Synopsis: Patient is at Nutrition Risk; Specific criteria can be found in assessment below Nutrition Plan: Regular diet order +Ensure Plus High Protein (1.5 kcal) TID w/ meals (350 kcal, 20 grams pro, 40 grams CHO) Recommendations to Physician: Consult PROJECT CONSULTANT d/t pt reporting having difficulty with swallowing [...] denies N/V/D/C at this time. 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 Pt receiving daily senna. Labs reviewed; Ca (7.9). RD will continue to follow. Assessment: Med/Surg History and Clinical Diagnoses: 62 year old female metastatic high risk papillary thyroid cancer (jZ9tP0eVe - IVb) s/p salvage total thyroidectomy and [...] Pain affecting intake: No Estimated Needs: KCAL: 6022-2700 (25-30 kcal/kg ABW) Protein (g): 76-127 (1.2-2.0 [...] 20 mg ??? fish oil/omega-3 fatty acids (Promega;Cardi-[place] 3) capsule 1,000 mg ??? fluticasone propionate (Flonase) nasal spray 2 spray ??? gabapentin (Neurontin) capsule 300 mg ??? heparin injection 5,000 Units ??? hydrALAZINE (Apresoline) injection 10 mg ??? HYDROmorphone (Dilaudid) 10 mg/50 mL PREMIUM NOTE INTEREST CALCULATOR CLERK ??? labetalol (Normodyne; Trandate) injection 10 mg [...] Brady Guerrero MD - Resident - Assisting Inspector Repairer Sandstone(s): none Anesthesia Type: general ETT Complications: none [...] Implant Name Type Inv. Item Serial No. Field Spec Lot No. LRB No. Used Action Savage Bone Void Ca Slf Stimulan Savage Bone Void 10Cc 20Cc Ca Slf Stimulan Biocompstes [id number] N/A 1 Implanted Savage Bone Void 10Ml [...] OPERATIVE REPORT NAME: Elizabeth Caicedo : 1960 [facility]: [id number] DATE OF SERVICE: 10/02/22 PROCEDURE PERFORMED: 1. [...] Caicedo??is a 61 year old??female??with aggressive PTC (uK2tV0a) s/p thyroidectomy, tracheal resection/reanastamosis, bilateral neck dissections [...] and infiltrated with local anesthetic with epinephrine. Bethany were inserted for somatic somatosensory evoked potential monitoring and motor evoked potential monitoring as well as direct stimulation. The back of the neck was prepped and draped in usual fashion. After surgical timeout sharp dissection and monopolar cautery were used to carry subperiosteal dissection out over the subaxial spine extending to cervical level 2and thoracic level 2. A spinous process clamp was affixed to the C2 spinous process and an O- arm spin obtained and used for stereotactic screw insertion. Very briefly a pilot supervisor hole was drilled in the left standard entry point for pars screw at C2. A stereotactic drill was used to create a pilot supervisor holeinto the pars followed by stereotactic And stereotactic screw insertion. After removing every instrument the pilot supervisor hole was palpated in order to ensure that there were no bony breaches. In that manner we were able to insert bilateral C2 pars screws bilateral pedicle screws at C3 with unilateral pedicle screws at right C4-6 and 7. We were also able to insert bilateral pedicle screws at thoracic level 1 and 2. Following her screw insertion we began our cervical laminectomy using a high-speed drill to create an osteotomy at the junction of [...] 6 in an effort to try to determineif we could sacrifice those nerve roots and completely resect the tumor off of the dura. We noticedthat the tumor had infiltrated into the nerve [...] a stimulation and were able to obtain positivecontrols on the right but known positive controls on the left and areas where we would expect and thus we were unsure whether we would permanently remove function by removing those nerve roots and aswe did not expect that there would be a oncologic benefit we elected to remove all easily dissectible soft tissue and satisfied ourselves with our decompression. Satisfied with our tumor resection decompression we contoured to titanium rods and inserted them into the pedicle screws bilaterally final tightening. X-rays confirmed adequate positioning of her instrumentation. EMG and nerve conductionstudies were stable throughout the procedure. We then decorticated all available bone and placed a combination of demineralized bone matrix crushed autograft and vancomycin beads in the gutters bilaterally. The wound was washed out and closed ended subfascial drain tunneled inferiorly and sutured to the skin and connected to Hemovac drain. The wound was closed with layered Vicryl jess of the skin. I intend to remove the jess after 3 weeks as the patient had recently undergone radiation therapy. All counts were correct at the end of the case. DRAINS: Cervical subfacial EBL: 150 ml Coy Gómez MD 10/02/22 10:37 AM Implant Name Type Inv. Item Serial No. Field Spec Lot No. LRB No. Used Action Savage Bone Void Ca Slf Stimulan Savage Bone Void 10Cc 20Cc Ca Slf Stimulan Biocompstes [id number] N/A 1 Implanted Savage Bone Void 10Ml [...] st Contact Info) Description 08/02/2024 2:20 PM ROTARY CUTTER OPERATOR Appointment [facility] [address] [place] [phone] 08/02/2024 3:00 PM ROTARY CUTTER OPERATOR Office Visit [facility] - Hematology/Oncology [address] [place] [phone] Remi Beckett MD [address] [place] [phone] 08/18/2024 1:45 PM ROTARY CUTTER OPERATOR Office Visit [facility] - ENT [address] [place] [phone] Neri Delgado MD [address] [place] [address] 08/30/2024 2:20 PM ROTARY CUTTER OPERATOR Appointment [facility] [address] [place] [address] Scheduled Referrals Name Type Priority Associated Diagnoses [...] PRONE, C-ARM, O-ARM Kinevo scope NEUROMONITORING (SSEP,MEP,EMG), X[employer] TechnologiesTRONIC--Samir notified mk 09/28 TYPE + SCREEN PANEL MARAL 10/02/2022 6 :41 AM CDT Preop examination documented in this encounter Results * CARDIAC EKG ORDER (10/09/2022 12:58 PM CDT) Narrative 10/09/2022 12:58 PM CDT Ordered by an unspecified provider. Scanned Document CARDIAC SERVICES ORD ERABLES * (ABNORMAL) PHOSPHORUS BLOOD (10/07/2022 12:12 AM CDT) Phosphorus 5.3(H) 2.9 - 5.1 mg/dL 10/07/2022 12:43 AM CDT [facility] Blood BLOOD SPECIMEN / Unknown Lab Venipuncture / Unknown 10/07/2022 12:12 AM CDT 10/07/2022 12:19 AM CDT Coy Gómez MD LAB - CHEMISTRY ORDSrinivas [facility] [address] [place] [address], [facility] [phone] * MAGNESIUM BLOOD (10/07/2022 12:12 AM CDT) Magnesium 1.7 1.6 - 2.6 mg/dL 10/07/2022 12:43 AM CDT [facility] Blood BLOOD SPECIMEN / Unknown Lab Venipuncture / Unknown 10/07/2022 12:12 AM CDT 10/07/2022 12:19 AM CDT Coy Gómez MD LAB - CHEMISTRY ASH [facility] Organization Address City/State/ZIP Co de Phone Number [facility] [address] [place] [address], [facility] [phone] * (ABNORMAL) CBC W AUTO DIFFERENTIAL (10/07/2022 12:12 AM CDT) WBC 8.1 3.5 - 10.5 10? 3 /uL 10/07/2022 1:08 AM [facility] RBC 3.03(L) 3.80 - 5.20 10? 6 /uL 10/07/2022 1:08 AM [facility] Hemoglobin 9.2(L) 12.0 - 15.6 g/dL 10/07/2022 1:08 AM [facility] Hematocrit 27.3(L) 35.0 - 45.0 % 10/07/2022 1:08 AM [facility] MCV 90.1 80.7 - 98.3 fL 10/07/2022 1:08 AM [facility] MCH 30.4 26.7 - 34.0 pg 10/07/2022 1:08 AM [facility] MCHC 33.7 30.8 - 35.9 g/dL 10/07/2022 1:08 AM [facility] RDW-SD 43.9 36.0 - 50.0 fL 10/07/2022 1:08 AM [facility] RDW-CV 13.4 11.2 - 14.8 % 10/07/2022 1:08 AM [facility] Platelet Count 263 150 - 400 10? 3 /uL 10/07/2022 1:08 AM [facility] MPV 10.3 9.4 - 12.9 fL 10/07/2022 1:08 AM [facility] nRBC Absolute 0.00 0 10? 3 /uL 10/07/2022 1:08 AM [facility] nRBC Auto 0.0 0 /100 WBC 10/07/2022 1:08 AM [facility] Neutrophils % 59.0 35.0 - 70.0 % 10/07/2022 1:08 AM [facility] Lymphocytes % 25.1 20.0 - 43.0 % 10/07/2022 1:08 AM [facility] Monocytes % 12.4 5.0 - 13.0 % 10/07/2022 1:08 AM [facility] Eosinophils % 2.4 0.0 - 6.0 % 10/07/2022 1:08 AM [facility] Basophil % 0.7 0.0 - 2.0 % 10/07/2022 1:08 AM [facility] Neutrophils Absolute 4.75 1.60 - 7.00 10? 3 /uL 10/07/2022 1:08 AM [facility] Lymphocyte Absolute 2.02 1.10 - 3.90 10? 3 /uL 10/07/2022 1:08 AM [facility] Monocytes Absolute 1.00 0.26 - 1.07 10? 3 /uL 10/07/2022 1:08 AM [facility] Eosinophils Absolute 0.19 0.00 - 0.47 10? 3 /uL 10/07/2022 1:08 AM [facility] Basophils Absolute 0.06 0.00 - 0.08 10? 3 /uL 10/07/2022 1:08 AM [facility] Immature Granulocytes % 0.4 0.0 - 1.0 % 10/07/2022 1:08 AM [facility] Immature Granulocytes Absolute 0.03 10/07/2022 1:08 AM [facility] Blood BLOOD SPECIMEN / Unknown Lab Venipuncture / Unknown 10/07/2022 12:12 AM CDT 10/07/2022 12:19 AM CDT Coy Gómez MD LAB - HEMATOLOGY ORD ERABLES [facility] [address] [place] [address], [facility] [phone] * (ABNORMAL) BASIC METABOLIC PANEL (CALCIUM TOTAL) (10/07/2022 12:12 AM CDT) BUN 15 7 - 26 mg/dL 10/07/2022 12:43 AM [facility] Creatinine 0.56 0.56 - 0.96 mg/dL 10/07/2022 12:43 AM [facility] Sodium 143 136 - 145 mmol/L 10/07/2022 12:43 AM [facility] Potassium 3.8 3.5 - 4.5 mmol/L 10/07/2022 12:43 AM [facility] Chloride 106 98 - 107 mmol/L 10/07/2022 12:43 AM [facility] CO2 25 22 - 29 mmol/L 10/07/2022 12:43 AM [facility] Glucose 92 70 - 115 mg/dL 10/07/2022 12:43 AM [facility] Calcium 9.0 8.4 - 10.2 mg/dL 10/07/2022 12:43 AM [facility] Anion Gap 16 8 - 18 10/07/2022 12:43 AM [facility] BUN/Creatinine Ratio 27(H) 7 - 23 10/07/2022 12:43 AM [facility] Osmolality Calculated 296 270 - 300 mOsm/kg 10/07/2022 12:43 AM [facility] eGFR by CKD-EPI >90 >=90 mL/min/1.7 3 m2 10/07/2022 12:43 AM [facility] Blood BLOOD SPECIMEN / Unknown Lab Venipuncture / Unknown 10/07/2022 12:12 AM CDT 10/07/2022 12:19 AM CDT Coy Gómez MD LAB - CHEMISTRY [facility] Organization Address City/State/ZIP Co de Phone Number [facility] [address] [place] [phone], [facility] [phone] * PREPARE (CROSSMATCH) RBC UNIT(S), 2 Units (10/06/2022 1:17 AM CDT) Unit Description AS1 LR PRBC [facility]OD [facility] Unit ABO B [facility] Unit Rh POS [facility] Product Number R02 [facility] B LOOD BANK LAB Unit Donor # [id number] [facility] Unit Status released [facility] BLOO D BANK LAB Product Code [id number] [facility] BLO OD [facility]ANK [facility] Blood Type Barcode 7300 [facility] Expiration Date [id number] S BLOOD [facility]ANK [facility] Unit Description -1 LR PRBC LV [facility] BLOOD [facility] Unit ABO B [facility]OD [facility] Unit Rh POS [facility] B[facility]OD [facility] Product Number R52 [facility] B LOOD BANK LAB Unit Donor # [id number] [facility] BLOOD [facility] Unit Status released [facility] BLOO D [facility] Product Code [id number] [facility] BLO OD BANK LAB Blood Type Barcode 7300 [facility] BLOOD [facility] Expiration Date [id number] S BLOOD BANK LAB Blood Bank BLOOD SPECIMEN / Unknown 10/02/2022 6:49 AM CDT Coy Gómez MD LAB - BLOOD BANK ORD ERABLES [facility] [address] [place] [address], [facility] [phone] * PHOSPHORUS BLOOD (10/05/2022 10:34 PM CDT) Phosphorus 4.6 2.9 - 5.1 mg/dL 10/05/2022 11:04 PM CDT [facility] Blood BLOOD SPECIMEN / Unknown Lab Venipuncture / Unknown 10/05/2022 10:34 PM CDT 10/05/2022 10:39 PM CDT Coy Gómez MD LAB - CHEMISTRY [facility] [employer] [address] [address], [place] [phone] * MAGNESIUM BLOOD (10/05/2022 10:34 PM CDT) Magnesium 1.6 1.6 - 2.6 mg/dL 10/05/2022 11:04 PM CDT [facility] Blood BLOOD SPECIMEN / Unknown Lab Venipuncture / Unknown 10/05/2022 10:34 PM CDT 10/05/2022 10:39 PM CDT Coy Gómez MD LAB - CHEMISTRY [employer] [facility] [address] [place] [address], [facility] [phone] * (ABNORMAL) CBC W AUTO DIFFERENTIAL (10/05/2022 10:34 PM CDT) WBC 8.9 3.5 - 10.5 10? 3 /uL 10/05/2022 11:09 PM [facility] RBC 3.18(L) 3.80 - 5.20 10? 6 /uL 10/05/2022 11:09 PM [facility] Hemoglobin 9.7(L) 12.0 - 15.6 g/dL 10/05/2022 11:09 PM [facility] Hematocrit 29.2(L) 35.0 - 45.0 % 10/05/2022 11:09 PM [facility] MCV 91.8 80.7 - 98.3 fL 10/05/2022 11:09 PM [facility] MCH 30.5 26.7 - 34.0 pg 10/05/2022 11:09 PM [facility] MCHC 33.2 30.8 - 35.9 g/dL 10/05/2022 11:09 PM [facility] RDW-SD 45.3 36.0 - 50.0 fL 10/05/2022 11:09 PM [facility] RDW-CV 13.3 11.2 - 14.8 % 10/05/2022 11:09 PM [facility] Platelet Count 239 150 - 400 10? 3 /uL 10/05/2022 11:09 PM [facility] MPV 10.3 9.4 - 12.9 fL 10/05/2022 11:09 PM [facility] nRBC Absolute 0.00 0 10? 3 /uL 10/05/2022 11:09 PM [facility] nRBC Auto 0.0 0 /100 WBC 10/05/2022 11:09 PM [facility] Neutrophils % 67.4 35.0 - 70.0 % 10/05/2022 11:09 PM [facility] Lymphocytes % 18.0(L) 20.0 - 43.0 % 10/05/2022 11:09 PM [facility] Monocytes % 11.6 5.0 - 13.0 % 10/05/2022 11:09 PM [facility] Eosinophils % 1.8 0.0 - 6.0 % 10/05/2022 11:09 PM [facility] Basophil % 0.6 0.0 - 2.0 % 10/05/2022 11:09 PM [facility] Neutrophils Absolute 6.03 1.60 - 7.00 10? 3 /uL 10/05/2022 11:09 PM [facility] Lymphocyte Absolute 1.61 1.10 - 3.90 10? 3 /uL 10/05/2022 11:09 PM [facility] Monocytes Absolute 1.04 0.26 - 1.07 10? 3 /uL 10/05/2022 11:09 PM [facility] Eosinophils Absolute 0.16 0.00 - 0.47 10? 3 /uL 10/05/2022 11:09 PM [facility] Basophils Absolute 0.05 0.00 - 0.08 10? 3 /uL 10/05/2022 11:09 PM [facility] Immature Granulocytes % 0.6 0.0 - 1.0 % 10/05/2022 11:09 PM [facility] Immature Granulocytes Absolute 0.05 10/05/2022 11:09 PM [facility] Blood BLOOD SPECIMEN / Unknown Lab Venipuncture / Unknown 10/05/2022 10:34 PM CDT 10/05/2022 10:39 PM T Coy Gómez MD LAB - HEMATOLOGY ORD ERABLES [facility] [address] [place] [address], [facility] [phone] * (ABNORMAL) BASIC METABOLIC PANEL (CALCIUM TOTAL) (10/05/2022 10:34 PM CDT) BUN 19 7 - 26 mg/dL 10/05/2022 11:04 PM [facility] Creatinine 0.53(L) 0.56 - 0.96 mg/dL 10/05/2022 11:04 PM [facility] Sodium 140 136 - 145 mmol/L 10/05/2022 11:04 PM [facility] Potassium 3.7 3.5 - 4.5 mmol/L 10/05/2022 11:04 PM [facility] Chloride 106 98 - 107 mmol/L 10/05/2022 11:04 PM [facility] CO2 25 22 - 29 mmol/L 10/05/2022 11:04 PM [facility] Glucose 118(H) 70 - 115 mg/dL 10/05/2022 11:04 PM [facility] Calcium 8.6 8.4 - 10.2 mg/dL 10/05/2022 11:04 PM [facility] Anion Gap 13 8 - 18 10/05/2022 11:04 PM [facility] BUN/Creatinine Ratio 36(H) 7 - 23 10/05/2022 11:04 PM [facility] Osmolality Calculated 293 270 - 300 mOsm/kg 10/05/2022 11:04 PM [facility] eGFR by CKD-EPI >90 >=90 mL/min/1.7 3 m2 10/05/2022 11:04 PM [facility] Blood BLOOD SPECIMEN / Unknown Lab Venipuncture / Unknown 10/05/2022 10:34 PM CDT 10/05/2022 10:39 PM CDT Coy Gómez MD LAB - CHEMISTRY [employer] Organization Address City/State/ZIP Co de Phone Number [facility] [address] [place] [phone], [facility] [phone] * PHOSPHORUS BLOOD (10/05/2022 4:36 AM CDT) Pathologist [facility] Phosphorus 3.6 2.9 - 5.1 mg/dL 10/05/2022 7:15 AM CDT [facility] Blood BLOOD SPECIMEN / Unknown Lab Venipuncture / Unknown 10/05/2022 4:36 AM CDT 10/05/2022 6:45 AM CDT Coy Gómez MD LAB - CHEMISTRY [employer] [employer] [address] [address], [facility] [phone] * MAGNESIUM BLOOD (10/05/2022 4:36 AM CDT) Magnesium 1.7 1.6 - 2.6 mg/dL 10/05/2022 7:15 AM CDT [facility] Blood BLOOD SPECIMEN / Unknown Lab Venipuncture / Unknown 10/05/2022 4:36 AM CDT 10/05/2022 6:45 AM CDT Coy Gómez MD LAB - CHEMISTRY [employer] [employer] [address] [address], [facility] [phone] * (ABNORMAL) CBC W AUTO DIFFERENTIAL (10/05/2022 4:36 AM CDT) WBC 9.3 3.5 - 10.5 10? 3 /uL 10/05/2022 6:55 AM [facility] RBC 3.32(L) 3.80 - 5.20 10? 6 /uL 10/05/2022 6:55 AM [facility] Hemoglobin 10.2(L) 12.0 - 15.6 g/dL 10/05/2022 6:55 AM [facility] Hematocrit 30.5(L) 35.0 - 45.0 % 10/05/2022 6:55 AM [facility] MCV 91.9 80.7 - 98.3 fL 10/05/2022 6:55 AM T [facility] MCH 30.7 26.7 - 34.0 pg 10/05/2022 6:55 AM [facility] MCHC 33.4 30.8 - 35.9 g/dL 10/05/2022 6:55 AM [facility] RDW-SD 45.2 36.0 - 50.0 fL 10/05/2022 6:55 AM [facility] RDW-CV 13.5 11.2 - 14.8 % 10/05/2022 6:55 AM [facility] Platelet Count 239 150 - 400 10? 3 /uL 10/05/2022 6:55 AM [facility] MPV 10.9 9.4 - 12.9 fL 10/05/2022 6:55 AM [facility] nRBC Absolute 0.00 0 10? 3 /uL 10/05/2022 6:55 AM [facility] nRBC Auto 0.0 0 /100 WBC 10/05/2022 6:55 AM [facility] Neutrophils % 68.2 35.0 - 70.0 % 10/05/2022 6:55 AM [facility] Lymphocytes % 19.3(L) 20.0 - 43.0 % 10/05/2022 6:55 AM [facility] Monocytes % 10.3 5.0 - 13.0 % 10/05/2022 6:55 AM [facility] Eosinophils % 1.4 0.0 - 6.0 % 10/05/2022 6:55 AM [facility] Basophil % 0.5 0.0 - 2.0 % 10/05/2022 6:55 AM [facility] Neutrophils Absolute 6.32 1.60 - 7.00 10? 3 /uL 10/05/2022 6:55 AM [facility] Lymphocyte Absolute 1.79 1.10 - 3.90 10? 3 /uL 10/05/2022 6:55 AM [facility] Monocytes Absolute 0.96 0.26 - 1.07 10? 3 /uL 10/05/2022 6:55 AM [facility] Eosinophils Absolute 0.13 0.00 - 0.47 10? 3 /uL 10/05/2022 6:55 AM [facility] Basophils Absolute 0.05 0.00 - 0.08 10? 3 /uL 10/05/2022 6:55 AM [facility] Immature Granulocytes % 0.3 0.0 - 1.0 % 10/05/2022 6:55 AM [facility] Immature Granulocytes Absolute 0.03 10/05/2022 6:55 AM [facility] Blood BLOOD SPECIMEN / Unknown Lab Venipuncture / Unknown 10/05/2022 4:36 AM CDT 10/05/2022 6:47 AM CDT Coy Gómez MD LAB - HEMATOLOGY ORD ERABLES [facility] [address] [place] [address], [facility] [phone] * (ABNORMAL) BASIC METABOLIC PANEL (CALCIUM TOTAL) (10/05/2022 4:36 AM CDT) BUN 10 7 - 26 mg/dL 10/05/2022 7:15 AM [facility] Creatinine 0.59 0.56 - 0.96 mg/dL 10/05/2022 7:15 AM [facility] Sodium 143 136 - 145 mmol/L 10/05/2022 7:15 AM [facility] Potassium 3.7 3.5 - 4.5 mmol/L 10/05/2022 7:15 AM [facility] Chloride 103 98 - 107 mmol/L 10/05/2022 7:15 AM [facility] CO2 25 22 - 29 mmol/L 10/05/2022 7:15 AM [facility] Glucose 90 70 - 115 mg/dL 10/05/2022 7:15 AM [facility] Calcium 8.3(L) 8.4 - 10.2 mg/dL 10/05/2022 7:15 AM [facility] Anion Gap 19(H) 8 - 18 10/05/2022 7:15 AM [facility] BUN/Creatinine Ratio 17 7 - 23 10/05/2022 7:15 AM [facility] Osmolality Calculated 295 270 - 300 mOsm/kg 10/05/2022 7:15 AM CDT [facility] eGFR by CKD-EPI >90 >=90 mL/min/1.7 3 m2 10/05/2022 7:15 AM CDT [facility] Blood BLOOD SPECIMEN / Unknown Lab Venipuncture / Unknown 10/05/2022 4:36 AM CDT 10/05/2022 6:45 AM CDT Coy Gómez MD LAB - CHEMISTRY [employer] [facility] Organization Address City/State/ZIP Co de Phone Number [facility] [address] [place] [address], [facility] [phone] * XR CERVICAL SPINE 2 OR 3VW (10/04/2022 9:40 AM CDT) Anatomical Region Laterality Modality Spine Radiographic Wea ging 10/04/2022 9:44 AM CDT Impressions 10/04/2022 12:48 PM CDT IMPRESSION: 1.Postsurgical changes from posterior C2-T2 fusion and C3-C7 decompression are present with paired rods and interpedicular screws. The surgical hardware appears intact. 2.No evidence of cervical spine fracture or malalignment. Report dictated by Kalin Kumar M.D. (student services vice president) I, Joshua Gaytan DO have personally reviewed and interpreted this examination/study. > Interpreting Provider: Joshua Gaytan DO on 10/04/2022 12:48 PM Narrative 10/04/2022 12:48 PM CDT PROCEDURE: ??XR CERVICAL SPINE 2 OR 3VW, XR THORACIC SPINE 3VW, DATE/TIME OF EXAM: ??10/04/2022 9:41 AM, LOCATION ??[facility] INDICATION: C79.51: Cancer, metastatic to bone (CMS/HCC) ADDITIONAL CLINICAL INFORMATION: Ordering Provider Reason For Exam: ??post op (accession [id number]), s/p PSIF (accession [id number]) COMPARISON: None. TECHNIQUE: AP and lateral views [...] 3VW, DATE/TIMEOF EXAM: 10/04/2022 9:41 AM, LOCATION [facility] INDICATION: C79.51: Cancer, metastatic to bone (CMS/HCC) ADDITIONAL CLINICAL INFORMATION: Ordering Provider Reason For Exam: post op (accession [id number]), s/pPSIF (accession [id number]) COMPARISON: None. TECHNIQUE: AP and lateral views [...] 1.Postsurgical changes from posterior C2-T2 fusion and C3-N5zmvphykjjxuvn are present with paired rods and interpedicular screws. The surgical hardware appears intact. 2.No evidence of cervical spine fracture or malalignment. Report dictated by Kalin Kumar M.D. (student services vice president) Joshua Mckeon DO have personally reviewed and [...] malalignment. Report dictated by Kalin Kumar M.D. (student services vice president) Joshua Mckeon DO have personally reviewed and interpreted this examination/study. > Interpreting Provider: Joshua Gaytan DO on 10/04/2022 12:48 PM Narrative 10/04/2022 12:48 PM CDT PROCEDURE: ??XR CERVICAL SPINE 2 OR 3VW, XR THORACIC SPINE 3VW, DATE/TIME OF EXAM: ??10/04/2022 9:41 AM, LOCATION ??[facility] INDICATION: C79.51: Cancer, metastatic to bone ([facility] ADDITIONAL CLINICAL INFORMATION: Ordering Provider Reason For Exam: ??post op (accession [id number]), s/p PSIF (accession [id number]) COMPARISON: None. TECHNIQUE: AP and lateral views [...] 3VW, DATE/TIMEOF EXAM: 10/04/2022 9:41 AM, LOCATION [facility] INDICATION: C79.51: Cancer, metastatic to bone (CMS/HCC) ADDITIONAL CLINICAL INFORMATION: Ordering Provider Reason For Exam: post op (accession [id number]), s/pPSIF (accession [id number]) COMPARISON: None. TECHNIQUE: AP and lateral views [...] 1.Postsurgical changes from posterior C2-T2 fusion and C3-R4rgmwucbflmrid are present with paired rods and interpedicular screws. The surgical hardware appears intact. 2.No evidence of cervical spine fracture or malalignment. Report dictated by Kalin Kumar M.D. (student services vice president) I, Joshua Gaytan DO have personally reviewed and interpreted this examination/study. > Interpreting Provider: Joshua Gaytan DO on 10/04/2022 12:48 PM Coy Gómez MD DIAGNOSTIC IMAGING O RDERABLES * PHOSPHORUS BLOOD (10/04/2022 12:07 AM CDT) Phosphorus 3.1 2.9 - 5.1 mg/dL 10/04/2022 1:00 AM CDT [facility] Blood BLOOD SPECIMEN / Unknown Venipuncture / Unknown 10/04/2022 12:07 AM CDT 10/04/2022 12:35 AM CDT Coy Gómez MD LAB - CHEMISTRY [employer] Performing Organization Address City/[facility]/ZIP Co de Phone Number [address] [phone], [facility] [phone] * MAGNESIUM BLOOD (10/04/2022 12:07 AM CDT) Magnesium 1.8 1.6 - 2.6 mg/dL 10/04/2022 1:00 AM T [facility] Blood BLOOD SPECIMEN / Unknown Venipuncture / Unknown 10/04/2022 12:07 AM CDT 10/04/2022 12:35 AM CDT Coy Gómez MD LAB - CHEMISTRY [employer] Performing Organization Address City/[facility]/ZIP Co de Phone Number [address] [address], [facility] [phone] * (ABNORMAL) CBC W AUTO DIFFERENTIAL (10/04/2022 12:07 AM CDT) WBC 9.2 3.5 - 10.5 10? 3 /uL 10/04/2022 12:45 AM [facility] RBC 3.10(L) 3.80 - 5.20 10? 6 /uL 10/04/2022 12:45 AM [facility] Hemoglobin 9.4(L) 12.0 - 15.6 g/dL 10/04/2022 12:45 AM [facility] Hematocrit 28.7(L) 35.0 - 45.0 % 10/04/2022 12:45 AM [facility] MCV 92.6 80.7 - 98.3 fL 10/04/2022 12:45 AM [facility] MCH 30.3 26.7 - 34.0 pg 10/04/2022 12:45 AM [facility] MCHC 32.8 30.8 - 35.9 g/dL 10/04/2022 12:45 AM [facility] RDW-SD 47.0 36.0 - 50.0 fL 10/04/2022 12:45 AM [facility] RDW-CV 13.9 11.2 - 14.8 % 10/04/2022 12:45 AM [facility] Platelet Count 212 150 - 400 10? 3 /uL 10/04/2022 12:45 AM [facility] MPV 10.1 9.4 - 12.9 fL 10/04/2022 12:45 AM [facility] nRBC Absolute 0.00 0 10? 3 /uL 10/04/2022 12:45 AM [facility] nRBC Auto 0.0 0 /100 WBC 10/04/2022 12:45 AM [facility] Neutrophils % 68.3 35.0 - 70.0 % 10/04/2022 12:45 AM [facility] Lymphocytes % 17.4(L) 20.0 - 43.0 % 10/04/2022 12:45 AM [facility] Monocytes % 13.4(H) 5.0 - 13.0 % 10/04/2022 12:45 AM [facility] Eosinophils % 0.4 0.0 - 6.0 % 10/04/2022 12:45 AM [facility] Basophil % 0.2 0.0 - 2.0 % 10/04/2022 12:45 AM [facility] Neutrophils Absolute 6.25 1.60 - 7.00 10? 3 /uL 10/04/2022 12:45 AM [facility] Lymphocyte Absolute 1.60 1.10 - 3.90 10? 3 /uL 10/04/2022 12:45 AM [facility] Monocytes Absolute 1.23(H) 0.26 - 1.07 10? 3 /uL 10/04/2022 12:45 AM [facility] Eosinophils Absolute 0.04 0.00 - 0.47 10? 3 /uL 10/04/2022 12:45 AM [facility] Basophils Absolute 0.02 0.00 - 0.08 10? 3 /uL 10/04/2022 12:45 AM [facility] Immature Granulocytes % 0.3 0.0 - 1.0 % 10/04/2022 12:45 AM [facility] Immature Granulocytes Absolute 0.03 10/04/2022 12:45 AM [facility] Blood BLOOD SPECIMEN / Unknown Venipuncture / Unknown 10/04/2022 12:07 AM CDT 10/04/2022 12:35 AM T Coy Gómez MD LAB - HEMATOLOGY ORD ERABLES [facility] [address] [place] [address], [facility] [phone] * (ABNORMAL) BASIC METABOLIC PANEL (CALCIUM TOTAL) (10/04/2022 12:07 AM CDT) BUN 17 7 - 26 mg/dL 10/04/2022 1:00 AM [facility] Creatinine 0.59 0.56 - 0.96 mg/dL 10/04/2022 1:00 AM [facility] Sodium 141 136 - 145 mmol/L 10/04/2022 1:00 AM [facility] Potassium 3.9 3.5 - 4.5 mmol/L 10/04/2022 1:00 AM [facility] Chloride 104 98 - 107 mmol/L 10/04/2022 1:00 AM [facility] CO2 26 22 - 29 mmol/L 10/04/2022 1:00 AM [facility] Glucose 117(H) 70 - 115 mg/dL 10/04/2022 1:00 AM [facility] Calcium 7.6(L) 8.4 - 10.2 mg/dL 10/04/2022 1:00 AM [facility] Anion Gap 15 8 - 18 10/04/2022 1:00 AM [facility] BUN/Creatinine Ratio 29(H) 7 - 23 10/04/2022 1:00 AM [facility] Osmolality Calculated 295 270 - 300 mOsm/kg 10/04/2022 1:00 AM CDT [facility] eGFR by CKD-EPI >90 >=90 mL/min/1.7 3 m2 10/04/2022 1:00 AM CDT [facility] Blood BLOOD SPECIMEN / Unknown Venipuncture / Unknown 10/04/2022 12:07 AM CDT 10/04/2022 12:35 AM CDT Coy Gómez MD LAB - CHEMISTRY [facility] [address] [address], [place] [phone] * PHOSPHORUS BLOOD (10/02/2022 11:25 PM CDT) Phosphorus 4.8 2.9 - 5.1 mg/dL 10/03/2022 12:09 AM CDT [facility] Blood BLOOD SPECIMEN / Unknown Venipuncture / Unknown 10/02/2022 11:25 PM CDT 10/02/2022 11:30 PM CDT Coy Gómez MD LAB - CHEMISTRY [facility] Performing Organization Address [facility]/ZIP Co de Phone Number [address] [address], [place] [phone] * MAGNESIUM BLOOD (10/02/2022 11:25 PM CDT) Magnesium 1.8 1.6 - 2.6 mg/dL 10/03/2022 12:09 AM CDT [facility] Blood BLOOD SPECIMEN / Unknown Venipuncture / Unknown 10/02/2022 11:25 PM CDT 10/02/2022 11:30 PM CDT Coy Gómez MD LAB - CHEMISTRY [facility] Performing Organization Address City/[facility]/ZIP Co de Phone Number [address] [address], [place] [phone] * (ABNORMAL) CBC W AUTO DIFFERENTIAL (10/02/2022 11:25 PM CDT) WBC 11.9(H) 3.5 - 10.5 10? 3 /uL 10/03/2022 12:07 AM [facility] RBC 3.96 3.80 - 5.20 10? 6 /uL 10/03/2022 12:07 AM [facility] Hemoglobin 12.0 12.0 - 15.6 g/dL 10/03/2022 12:07 AM [facility] Hematocrit 35.1 35.0 - 45.0 % 10/03/2022 12:07 AM [facility] MCV 88.6 80.7 - 98.3 fL 10/03/2022 12:07 AM [facility] MCH 30.3 26.7 - 34.0 pg 10/03/2022 12:07 AM [facility] MCHC 34.2 30.8 - 35.9 g/dL 10/03/2022 12:07 AM [facility] RDW-SD 42.8 36.0 - 50.0 fL 10/03/2022 12:07 AM [facility] RDW-CV 13.2 11.2 - 14.8 % 10/03/2022 12:07 AM [facility] Platelet Count 297 150 - 400 10? 3 /uL 10/03/2022 12:07 AM [facility] MPV 10.2 9.4 - 12.9 fL 10/03/2022 12:07 AM [facility] nRBC Absolute 0.00 0 10? 3 /uL 10/03/2022 12:07 AM [facility] nRBC Auto 0.0 0 /100 WBC 10/03/2022 12:07 AM [facility] Neutrophils % 84.5(H) 35.0 - 70.0 % 10/03/2022 12:07 AM [facility] Lymphocytes % 8.4(L) 20.0 - 43.0 % 10/03/2022 12:07 AM [facility] Monocytes % 6.5 5.0 - 13.0 % 10/03/2022 12:07 AM [facility] Eosinophils % 0.0 0.0 - 6.0 % 10/03/2022 12:07 AM [facility] Basophil % 0.2 0.0 - 2.0 % 10/03/2022 12:07 AM [facility] Neutrophils Absolute 10.06(H) 1.60 - 7.00 10? 3 /uL 10/03/2022 12:07 AM [facility] Lymphocyte Absolute 1.00(L) 1.10 - 3.90 10? 3 /uL 10/03/2022 12:07 AM [facility] Monocytes Absolute 0.77 0.26 - 1.07 10? 3 /uL 10/03/2022 12:07 AM [facility] Eosinophils Absolute 0.00 0.00 - 0.47 10? 3 /uL 10/03/2022 12:07 AM [facility] Basophils Absolute 0.02 0.00 - 0.08 10? 3 /uL 10/03/2022 12:07 AM [facility] Immature Granulocytes % 0.4 0.0 - 1.0 % 10/03/2022 12:07 AM [facility] Immature Granulocytes Absolute 0.05 10/03/2022 12:07 AM [facility] Blood BLOOD SPECIMEN / Unknown Venipuncture / Unknown 10/02/2022 11:25 PM CDT 10/02/2022 11:30 PM CDT Coy Gómez MD LAB - HEMATOLOGY ORD ERABLES Performing Organization Address City/[facility] Co de Phone Number [facility] [address] [place] [address], [facility] [phone] * (ABNORMAL) BASIC METABOLIC PANEL (CALCIUM TOTAL) (10/02/2022 11:25 PM CDT) BUN 16 7 - 26 mg/dL 10/03/2022 12:09 AM [facility] Creatinine 0.61 0.56 - 0.96 mg/dL 10/03/2022 12:09 AM [facility] Sodium 139 136 - 145 mmol/L 10/03/2022 12:09 AM [facility] Potassium 4.5 3.5 - 4.5 mmol/L 10/03/2022 12:09 AM [facility] Chloride 105 98 - 107 mmol/L 10/03/2022 12:09 AM [facility] CO2 21(L) 22 - 29 mmol/L 10/03/2022 12:09 AM [facility] Glucose 129(H) 70 - 115 mg/dL 10/03/2022 12:09 AM [facility] Calcium 7.9(L) 8.4 - 10.2 mg/dL 10/03/2022 12:09 AM [facility] Anion Gap 18 8 - 18 10/03/2022 12:09 AM [facility] BUN/Creatinine Ratio 26(H) 7 - 23 10/03/2022 12:09 AM [facility] Osmolality Calculated 291 270 - 300 mOsm/kg 10/03/2022 12:09 AM [facility] eGFR by CKD-EPI >90 >=90 mL/min/1.7 3 m2 10/03/2022 12:09 AM [facility] Blood BLOOD SPECIMEN / Unknown Venipuncture / Unknown 10/02/2022 11:25 PM CDT 10/02/2022 11:30 PM CDT Coy Gómez MD LAB - CHEMISTRY ASH WEAEVR Performing Organization Address City/[facility]/ZIP Co de Phone Number [address] [address], [facility] [phone] * (ABNORMAL) PHOSPHORUS BLOOD (10/02/2022 2:30 PM CDT) Phosphorus 5.3(H) 2.9 - 5.1 mg/dL 10/02/2022 3:06 PM CDT [facility] Blood BLOOD SPECIMEN / Unknown Venipuncture / Unknown 10/02/2022 2:30 PM CDT 10/02/2022 2:41 PM CDT Coy Gómez MD LAB - CHEMISTRY ASH WEAVER [address] [place] [address], [facility] [phone] * MAGNESIUM BLOOD (10/02/2022 2:30 PM CDT) Magnesium 1.9 1.6 - 2.6 mg/dL 10/02/2022 3:06 PM [facility] Blood BLOOD SPECIMEN / Unknown Venipuncture / Unknown 10/02/2022 2:30 PM CDT 10/02/2022 2:41 PM CDT Coy Gómez MD LAB - CHEMISTRY ASH WEAVER [facility] Organization Address City/State/ZIP Co de Phone Number [address] [address], [facility] [phone] * (ABNORMAL) BASIC METABOLIC PANEL (CALCIUM TOTAL) (10/02/2022 2:30 PM CDT) Pathologist [facility] BUN 16 7 - 26 mg/dL 10/02/2022 3:06 PM [facility] Creatinine 0.75 0.56 - 0.96 mg/dL 10/02/2022 3:06 PM [facility] Sodium 141 136 - 145 mmol/L 10/02/2022 3:06 PM [facility] Potassium 4.1 3.5 - 4.5 mmol/L 10/02/2022 3:06 PM [facility] Chloride 106 98 - 107 mmol/L 10/02/2022 3:06 PM [facility] CO2 23 22 - 29 mmol/L 10/02/2022 3:06 PM [facility] Glucose 143(H) 70 - 115 mg/dL 10/02/2022 3:06 PM [facility] Calcium 7.8(L) 8.4 - 10.2 mg/dL 10/02/2022 3:06 PM [facility] Anion Gap 16 8 - 18 10/02/2022 3:06 PM [facility] BUN/Creatinine Ratio 21 7 - 23 10/02/2022 3:06 PM [facility] Osmolality Calculated 296 270 - 300 mOsm/kg 10/02/2022 3:06 PM [facility] eGFR by CKD-EPI 89(L) >=90 mL/min/1.7 3 m2 10/02/2022 3:06 PM [facility] Blood BLOOD SPECIMEN / Unknown Venipuncture / Unknown 10/02/2022 2:30 PM CDT 10/02/2022 2:41 PM CDT Coy Gómez MD LAB - CHEMISTRY ASH WEAVER [facility] Organization Address City/State/ZIP Co de Phone Number [facility] [address] [place] [address], [facility] [phone] * (ABNORMAL) CBC W AUTO DIFFERENTIAL (10/02/2022 12:59 PM CDT) WBC 9.9 3.5 - 10.5 10? 3 /uL 10/02/2022 1:37 PM [facility] RBC 4.06 3.80 - 5.20 10? 6 /uL 10/02/2022 1:37 PM [facility] Hemoglobin 12.3 12.0 - 15.6 g/dL 10/02/2022 1:37 PM [facility] Hematocrit 37.7 35.0 - 45.0 % 10/02/2022 1:37 PM [facility] MCV 92.9 80.7 - 98.3 fL 10/02/2022 1:37 PM [facility] MCH 30.3 26.7 - 34.0 pg 10/02/2022 1:37 PM [facility] MCHC 32.6 30.8 - 35.9 g/dL 10/02/2022 1:37 PM [facility] RDW-SD 45.9 36.0 - 50.0 fL 10/02/2022 1:37 PM [facility] RDW-CV 13.6 11.2 - 14.8 % 10/02/2022 1:37 PM [facility] Platelet Count 236 150 - 400 10? 3 /uL 10/02/2022 1:37 PM [facility] MPV 10.3 9.4 - 12.9 fL 10/02/2022 1:37 PM [facility] Immature Platelet Fraction 2.3 1.1 - 6.2 % 10/02/2022 1:37 PM [facility] nRBC Absolute 0.00 0 10? 3 /uL 10/02/2022 1:37 PM [facility] nRBC Auto 0.0 0 /100 WBC 10/02/2022 1:37 PM [facility] Neutrophils % 87.3(H) 35.0 - 70.0 % 10/02/2022 1:37 PM [facility] Lymphocytes % 10.0(L) 20.0 - 43.0 % 10/02/2022 1:37 PM [facility] Monocytes % 1.8(L) 5.0 - 13.0 % 10/02/2022 1:37 PM [facility] Eosinophils % 0.2 0.0 - 6.0 % 10/02/2022 1:37 PM [facility] Basophil % 0.4 0.0 - 2.0 % 10/02/2022 1:37 PM [facility] Neutrophils Absolute 8.64(H) 1.60 - 7.00 10? 3 /uL 10/02/2022 1:37 PM [facility] Lymphocyte Absolute 0.99(L) 1.10 - 3.90 10? 3 /uL 10/02/2022 1:37 PM [facility] Monocytes Absolute 0.18(L) 0.26 - 1.07 10? 3 /uL 10/02/2022 1:37 PM [facility] Eosinophils Absolute 0.02 0.00 - 0.47 10? 3 /uL 10/02/2022 1:37 PM [facility] Basophils Absolute 0.04 0.00 - 0.08 10? 3 /uL 10/02/2022 1:37 PM [facility] Immature Granulocytes % 0.3 0.0 - 1.0 % 10/02/2022 1:37 PM [facility] Immature Granulocytes Absolute 0.03 10/02/2022 1:37 PM [facility] Blood BLOOD SPECIMEN / Unknown Venipuncture / Unknown 10/02/2022 12:59 PM CDT 10/02/2022 1:27 PM CDT Coy Gómez MD LAB - HEMATOLOGY ORD ERABLES Performing Organization Address [facility]/ZIP Co de Phone Number [facility] [address] [place] [address], [facility] [phone] * PT-INR [facility] (10/02/2022 12:59 PM CDT) PT 12.9 12.1 - 14.8 Seconds 10/02/2022 1:54 PM CDT [facility] INR 1.0 See Comment 10/02/2022 1:54 PM CDT [facility] Comment:The suggested therap eutic range for standard coumadin (warfarin) therapy is an INR of 2.0-3.0. For high-risk patients (Mechanical Mitral Valve Prosthesis, etc.), the suggested prophylactic therapeutic range is an INR of 2.5-3.5. Blood BLOOD SPECIMEN / Unknown Venipuncture / Unknown 10/02/2022 12:59 PM CDT 10/02/2022 1:27 PM CDT Coy Gómez MD LAB - COAGULATION OR DERABLES Performing Organization Address [facility]/ZIP Co de Phone Number [facility] [address] [place] [address], [facility] [phone] * [place] RONNY SURGERY (10/02/2022 11:17 AM CDT) Narrative [facility] RADIOLOGY - 10/02/2022 11:18 AM CDT Fluoroscopy was used for this exam in the OR. Please see the Operative report. Coy Gómez MD FLUOROSCOPY ORDERABL ES [facility] * FL OARM SURGERY (10/02/2022 11:17 AM CDT) Narrative [facility] - 10/02/2022 11:48 AM CDT Fluoroscopy was used for this exam in the OR. Please see the Operative report. Coy Gómez MD FLUOROSCOPY ORDERABL ES [facility] * PATHOLOGY TISSUE (10/02/2022 9:59 AM CDT) Case Report Surgical Pathology Report ? Case: [id number] ? Authorizing Provider: ??Coy Gómez MD ?Collected: ? 10/02/2022 09:59 AM ? Ordering Location: ? [facility] OP ?Received: ?10/02/2022 11:08 AM ? [...] a metastatic thyroid carcinoma. 10/06/2022 1:13 PM [facility] Microscopic Description and Comment [...] negative for CK20 immunostaining. 10/06/2022 1:13 PM [facility] Clinical History 10/06/2022 1:13 PM [facility] Gross Description The requisition [...] cassette labeled B1. /ML 10/06/2022 1:13 PM [facility] Disclaimer The performance characteristics of all immunohistochemical and indirect immunofluorescence stains (if any) cited in this report were determined by the Histopathology Laboratory of [facility]. Some of these tests were [...] the attending (teaching) pathologist. 10/06/2022 1:13 PM [facility] Embedded Images 10/06/2022 1:13 PM CDT [facility] Biopsy, Excision ENTIRE SPINAL CORD / Unknown 10/02/2022 9:59 AM CDT 10/02/2022 11:08 AM CDT Comment:Pre-op diagnosis: spine tumor Biopsy, Excision ENTIRE SPINAL CORD / Unknown 10/02/2022 10:42 AM CDT 10/02/2022 2:56 PM CDT Comment:Pre-op diagnosis: spine tumor Coy Gómez MD LAB - PATHOLOGY/CYTO LOGY ORDERABLES Performing Organization Address City/[facility]/ZIP Co de Phone Number [facility] [address] [place], [place] [id number] [place] [address] * TYPE + SCREEN PANEL (10/02/2022 6:41 AM CDT) Antibody Screen NEG 7:31 AM CDT [facility] ABO Rh B POS 10/02/2022 7:31 AM CDT [facility] Blood Bank BLOOD SPECIMEN / Unknown Venipuncture / Unknown 10/02/2022 6:41 AM CDT 10/02/2022 6:49 AM CDT Coy Gómez MD LAB - BLOOD BANK ORD ERABLES Performing Organization Address [facility] Co de Phone Number [facility] [address] [place] [address], [facility] [phone] documented in this encounter Visit Diagnoses Diagnosis [...] CDT 50 mcg fish oil/omega-3 fatty acids (Promega;Cardi-[place] 3) capsule 1,000 mg 1,000 mg, Oral, [...] than 70. HYDROmorphone (Dilaudid) 10 mg/50 mL PREMIUM NOTE INTEREST CALCULATOR CLERK PREMIUM NOTE INTEREST CALCULATOR CLERK Dose: 0.2 mg, PREMIUM NOTE INTEREST CALCULATOR CLERK Lockout Interval: 10 Minutes, One Hour Limit\Max Limit: 1.2 mg, Clinician Bolus (Load): 0.4 mg, Intravenous, PREMIUM NOTE INTEREST CALCULATOR CLERK, Starting on Wed10/02/22 at 1130, Until Wed10/05/22 at 0909, PREMIUM NOTE INTEREST CALCULATOR CLERK Pump Therapy: Normal Risk (PREMIUM NOTE INTEREST CALCULATOR CLERK Only) $ New Bag/Syringe 10/04/2022 10:31 AM [...] Felicity Kwan RN - Reason: IV Currently Infusing)205 (Not Administered - Provider: Yaneth Camejo RN [...] Kwan, JOSY)1744 ($ Given - Provider: Felicity Kwan, JOSY) 0010 ($ Given - Provider: Yaneht Camejo RN)0532 (Not Administered - Provider: Yaneth [...] Camejo RN) 08 ($ Given - Provider: Ellen Huston, JOSY) calcitriol (Rocaltrol) capsule 0.5 mcg 0.5 mcg, [...] Provider: Yaneth Camejo RN - Reason: Refused-Patient) 0826 (Not Administered - Provider: Ellen Huston RN [...] Ellen Huston, JOSY) fish oil/omega-3 fatty acids (Promega;Cardi-[place] 3) capsule 1,000 mg 1,000 mg, Oral, [...] Kwan RN)1458 ($ Given - Provider: Felicity Kwan, JOSY)2055 ($ Given - Provider: Yaneth Camejo, RN) 0827 ($ Given - Provider: Ellen Huston, JOSY) heparin injection 5,000 Units 5,000 Units, Subcutaneous, EVERY 8 HOURS, First dose on Wed10/03/22 at 1400, Until Discontinued 0552 ($ Given - Provider: Jarocho Higgins RN)1507 ($ Given - Provider: Pravin Dennis RN)2100 ($ Given - Provider: Yaneth Camejo, JOSY) 0516 ($ Given - Provider: Yaneth Camejo, JOSY)1459 ($ Given - Provider: Felicity Kwan, JOSY)2103 [...] Dennis RN)2255 (Removed - Provider: Yaneth Camejo, JOSY) 1220 ($ Applied - Provider: Felicity Kwan, JOSY) 0017 (Removed - Provider: Yaneth Camejo, JOSY) loratadine (Claritin) tablet 10 mg 10 mg, [...] required. 0840 (Not Administered - Provider: Pravin Reser, RN - Reason: Refused-Patient) 0829 ($ Given [...] 1034 ($ New Bag/Syringe - Provider: Salome Lucero, JOSY) 0011 ($ New Bag/Syringe - Provider: Yaneth Camejo, JOSY) PRN Medication Order 10/05/2022 10/06/2022 10/07/2022 0.9% [...] 0516 ($ Given - Provider: Yaneth Camejo, JOSY) 0407 ($ Given - Provider: Yaneth [...] patient request must be documented in the 1802 ($ Given - Provider: Felicity Kwan RN) [...] swallow. documented in this encounter Care Teams Electrical System Specialist Relationship Specialty Start Date End Date Taniya Grimes MD [address] [facility] [address] [facility] [place] [address] PCP - General 07/15/22 10/06/22 Joseph Manzanares MD [address] [place] [address] PCP - General Internal Medicine 10/07/22 04/20/23 Adriana Adams DO [address] [place] [address] Resident - PCP Internal Medicine 04/06/22 01/12/23 documented as of this encounter
--- OUTSIDE RECORDS SUMMARY | 2024-07-26 08:32 | XMS_ITS | Encounter Summary ---
Author Organization [facility] Health Address [address] [facility] [place] [address] Care Team Providers Care Mechanical Assembler Name Role Phone Adriana Adams DO Unavailable Taniya Grimes MD Primary Care Provider Encounter Details Date Type Department Care Team (Latest Contact Info) Description 09/14/2022 3:05 PM CDT Hospital Encounter [facility] [address] [facility] [place] [address] Coy Gómez MD [address] [facility] 2[address] DIV OF NEUROSURGERY [place], [place] [phone] Discharge Disposition: Home or Self Care Social [...] Coronavirus/COVID-19? No / Unsure 09/02/2022 2:14 PM BACK TENDER PAPER MACHINE documented as of this encounter Functional Status [...] A DAY 60 capsule 11 02/22/2022 05/28/2023 [id number]-[id number] PO Take by mouth once daily 06/13/2023 [...] fluticasone propionate (FLONASE) 50 MCG/ACT nasal spray [place] 2 (two) sprays into each nostril once daily 48 g 10/20/2021 11/25/2022 gabapentin (Neurontin) 300 MG capsuleIndications:Nicole favio osteoarthritis of left hip Take 1 (one) capsule by mouth 3 times daily 90 capsule 5 04/06/2022 11/19/2022 [id number]-SBR-C -HYAL PO Take 1 tablet by mouth [...] st Contact Info) Description 08/02/2024 2:20 PM BACK TENDER PAPER MACHINE Appointment [facility] [address] [place] [address] 08/02/2024 3:00 PM BACK TENDER PAPER MACHINE [facility]Oncology [address] [place] [phone] Remi Beckett MD [address] [place] [phone] 08/18/2024 1:45 PM BACK TENDER PAPER MACHINE Office Visit [facility] - ENT [address] [place] [phone] eNri Delgado MD [address] [place] [address] 08/30/2024 2:20 PM BACK TENDER PAPER MACHINE Appointment [facility] [address] [place] [address] documented as of this encounter Visit Diagnoses Not on filedocumented in this encounter Care Teams Mechanical Assembler Relationship Specialty Start Date End Date Taniya Grimes MD [address] [place] [phone] PCP - General 07/15/22 10/06/22 Adriana Adams DO [address] [place] [phone] Resident - PCP Internal Medicine 04/06/22 01/12/23 documented as of this encounter
--- OUTSIDE RECORDS SUMMARY | 2024-07-26 08:32 | XMS_ITS | Encounter Summary ---
Author Organization [facility] Health Address [address] [facility] [place] [address] Care Team Providers Care Enamel Shader Name Role Phone Adriana Adams DO Unavailable Taniya Grimes MD Primary Care Provider Reason for Visit * Reason Onset Date Comments Imaging 09/03/2022 Encounter Details Date Type Department Care Team (Late st Contact Info) Description 09/03/2022 Telephone [facility] - [facility]ics [address] [facility], [place] [address] Mary Beth Lauren MD [address] [place] [address] [address] [place] [address] Imaging Social History Tobacco Use [...] Coronavirus/COVID-19? No / Unsure 09/02/2022 2:14 PM MARINE ELECTRICIAN APPRENTICE documented as of this encounter Functional Status [...] she agrees to day and time. Tm NE ELECTRICIAN APPRENTICE documented in this encounter Plan of Treatment Upcoming Encounters Date Type Department Care Team (Late st Contact Info) Description 08/02/2024 2:20 PM MARINE ELECTRICIAN APPRENTICE Appointment [facility] [address] [place] [address] 08/02/2024 3:00 PM MARINE ELECTRICIAN APPRENTICE Office Visit [facility] - Hematology/Oncology [address] [place] [phone] Remi Beckett MD [address] [place] [phone] 08/18/2024 1:45 PM MARINE ELECTRICIAN APPRENTICE Office Visit [facility] - ENT [address] [place] [phone] Neri Delgado MD [address] [place] [address] 08/30/2024 2:20 PM MARINE ELECTRICIAN APPRENTICE Appointment [facility] [address] [place] [phone] documented as of this encounter Visit Diagnoses Not on filedocumented in this encounter Care Teams Enamel Shader Relationship Specialty Start Date End Date Tainya Grimes MD [address] [facility] [place] [address] PCP - General 07/15/22 10/06/22 Adriana Adams DO [address] [place] [address] Resident - PCP Internal Medicine 04/06/22 01/12/23 documented as of this encounter
--- OUTSIDE RECORDS SUMMARY | 2024-07-26 08:32 | XMS_ITS | Encounter Summary ---
Author Organization [facility] Address [address] [facility] [place] [address] Care Team Providers Care Solar Electric Practitioner Name Role Phone Adriana Adams DO Unavailable Taniya Grimes MD Primary Care Provider [phone] Reason for Visit * Radiology Services (Routine) - Closed Specialty Diagnoses / Procedures Referred By Contricardo t Referred To Contact Diagnoses Neoplasm of uncertain behavior of skin Procedures CT RAD THERAPY WO CONTRAST Marcio Mcintosh MD [address] [place] [address] [address] Referral ID Status Reason Start Date Expiration Date Visits Re quested Visits Authorized [id number] Closed 09/17/2022 03/16/2023 1 1 Encounter Details Date Type Department Care Team (Latest Contact Info) Description 09/15/2022 1:51 PM CDT - 09/15/2022 11:59 PM CDT Hospital Encounter [facility] [address] [place], [place] [phone] Marcio Mcintosh MD [address] [place] [address] Discharge Disposition: Home or Self [...] Coronavirus/COVID-19? No / Unsure 09/02/2022 2:14 PM SERVICE DISMANTLER documented as of this encounter Functional Status [...] A DAY 60 capsule 11 02/22/2022 05/28/2023 [id number]-HOAH PO Take by mouth once daily 06/13/2023 [...] fluticasone propionate (FLONASE) 50 MCG/ACT nasal spray [place] 2 (two) sprays into each nostril once daily 48 g 10/20/2021 11/25/2022 gabapentin (Neurontin) 300 MG capsuleIndications:Nicole stahl osteoarthritis of left hip Take 1 (one) capsule by mouth 3 times daily 90 capsule 5 04/06/2022 11/19/2022 PGUFAS-MBIXOTPRD-BMI-C -HYAL PO Take 1 tablet by mouth [...] st Contact Info) Description 08/02/2024 2:20 PM SERVICE DISMANTLER Appointment [facility] [address] [place] [address] 08/02/2024 3:00 PM SERVICE DISMANTLER [facility]Oncology [address] [place] [phone] Remi Beckett MD [address] [place] [phone] 08/18/2024 1:45 PM SERVICE DISMANTLER Office Visit [facility] - ENT [address] [place] [phone] Neri Delgado MD [facility] [place] [address] 08/30/2024 2:20 PM SERVICE DISMANTLER Appointment [facility] [address] [place] [address] Pending Results Name Type Priority Associated Diagnoses Date /Time CT RAD THERAPY WO CONTRAST Imaging Routine Neoplasm of uncertain behavior of skin 09/15/2022 2:21 PM CDT documented as of this encounter Visit Diagnoses Diagnosis Neoplasm of uncertain behavior of skin documented in this encounter Care Teams Solar Electric Practitioner Relationship Specialty Start Date End Date Taniya Grimes MD [address] [place] [address] [address] DIV [place] [address] PCP - General 07/15/22 10/06/22 Adriana Adams DO [address] [place] [phone] Resident - PCP Internal Medicine 04/06/22 01/12/23 documented as of this encounter
--- OUTSIDE RECORDS SUMMARY | 2024-07-26 08:32 | XMS_ITS | Encounter Summary ---
Author Organization [facility] Health Address [address] [facility] [place] [address] Care Team Providers Care Project Engineer Name Role Phone Adriana Adams DO Unavailable Taniya Grimes MD Primary Care Provider Reason for Visit * Reason Onset Date Comments General 09/29/2022 Encounter Details Date Type Department Care Team (Late Contact Info) Description 09/29/[address] [address] Haleigh Hurt, JOSY General Social History Tobacco Use Types [...] Coronavirus/COVID-19? No / Unsure 09/02/2022 2:14 PM GAS STOVE SERVICER HELPER documented as of this encounter Functional [...] compounds, the script was called in to [facility] pharmacy. Patient will come over and pick it up. Patient verbalized understanding. documented in this encounter Plan of Treatment Upcoming Encounters Date Type Department Care Team (Late st Contact Info) Description 08/02/2024 2:20 PM GAS STOVE SERVICER HELPER Appointment [facility] [address] [place] [phone] 08/02/2024 3:00 PM GAS STOVE SERVICER HELPER Office Visit [facility] - Hematology/Oncology [address] [place] [phone] Remi Beckett MD [address] [place] [phone] 08/18/2024 1:45 PM GAS STOVE SERVICER HELPER Office Visit [facility] - ENT [address] [place] [phone] Neri Delgado MD [address] [place] [phone] 08/30/2024 2:20 PM GAS STOVE SERVICER HELPER Appointment [facility] [address] [place] [address] documented as of this encounter Visit Diagnoses Not on filedocumented in this encounter Care Teams Project Engineer Relationship Specialty Start Date End Date Taniya Grimes MD [address] [place] [phone] PCP - General 07/15/22 10/06/22 Adriana Adams DO [address] [place] [address] Resident - PCP Internal Medicine 04/06/22 01/12/23 documented as of this encounter
--- OUTSIDE RECORDS SUMMARY | 2024-07-26 08:32 | XMS_ITS | Encounter Summary ---
Author Organization [facility] Health Address [address] [place] [address] Care Team Providers Care Industrial Electrician Journeyman Name Role Phone Adriana Adams DO Unavailable [...] Coronavirus/COVID-19? No / Unsure 09/02/2022 2:14 PM REPAIR CLERK documented as of this encounter Functional [...] st Contact Info) Description 08/02/2024 2:20 PM REPAIR CLERK Appointment [facility] [place] [address] 08/02/2024 3:00 PM REPAIR CLERK Office Visit [facility] Group - Hematology/Oncology [address] [place] [phone] Remi Beckett MD [address] [place] [phone] 08/18/2024 1:45 PM REPAIR CLERK [facility] [address] [place] [phone] Neri Delgado MD [address] [place] [phone] 08/30/2024 2:20 PM REPAIR CLERK Appointment [facility] [address] [place] [phone] documented as of this encounter Visit Diagnoses Not on filedocumented in this encounter Care Teams Industrial Electrician Journeyman Relationship Specialty Start Date End Date Taniya Grimes MD [address] [place] [address] [address] DIV [place] [address] PCP - General 07/15/22 10/06/22 Adriana Adams DO [address] [place] [phone] Resident - PCP Internal Medicine 04/06/22 01/12/23 documented as of this encounter
--- OUTSIDE RECORDS SUMMARY | 2024-07-26 08:32 | XMS_ITS | Encounter Summary ---
Author Organization [facility] Address [address] [facility] [place] [address] Care Team Providers Care Motorcycle Subassembler Name Role Phone Adriana Adams DO Unavailable Taniya Grimes MD Primary Care Provider Reason for Referral * Radiology Services (Routine) - Closed Specialty Diagnoses / Procedures Referred By Contricardo t Referred To Contact Diagnoses Neoplasm of uncertain behavior of skin Procedures CT RAD THERAPY WO CONTRAST Marcio Mcintosh MD [address] [place] [address] [address] Referral ID Status Reason Start Date Expiration Date Visits Re quested Visits Authorized [id number] Closed 09/17/2022 03/16/2023 1 1 Encounter Details Date Type Department Care Team (Latest Contact Info) Description 09/15/2022 12:51 PM CDT - 09/15/2022 1:50 PM CDT Hospital Encounter [facility] RAD ONC [facility] [place], [place] [phone] Marcio Mcintosh MD [facility]8 [place] [address] Discharge Disposition: Home or Self [...] Coronavirus/COVID-19? No / Unsure 09/02/2022 2:14 PM SUMMER ANALYST documented as of this encounter Last [...] A DAY 60 capsule 11 02/22/2022 05/28/2023 [id number] PO Take by mouth once daily 06/13/2023 [...] fluticasone propionate (FLONASE) 50 MCG/ACT nasal spray [place] 2 (two) sprays into each nostril once daily 48 g 10/20/2021 11/25/2022 gabapentin (Neurontin) 300 MG capsuleIndications:Nicole stahl osteoarthritis of left hip Take 1 (one) capsule by mouth 3 times daily 90 capsule 5 04/06/2022 11/19/2022 RECAMS-LGDTRMRVQ-SML-C -HYAL PO Take 1 tablet by mouth [...] Return Patient Visit Department of Radiation Oncology [facility] ENCOUNTER DATE: 09/15/2022 PATIENT IDENTIFICATION Brisa Hogan 1960 Autopopulated Data Chief Complaint: No chief complaint on file. Diagnosis: 1. Neoplasm of uncertain behavior of skin 2. 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, stage TxNxM1, s/p Resection of primary thyroid andRAI of 157.6mCi Referring MD: Polisher Brass: Yosi Bustamante MD ENT Surgeon: Neri Delgado [...] Membrances: Mucous Membranes: Moist Eye: Eyes: 0-No policy change clerk baseline Ears: Salivary Glands: Salivary Glands: 0-no policy change clerk baseline Pharynx and Esophagus: Pharynx and Esophagus: 0-No policy change clerk baseline Larynx: Larynx: 0-No change in baseline Upper GI: Upper GI: 0-no policy change clerk baseline Lower GI including pelvis: Lower GI including pelvis: 0-No policy change clerk baseline Lungs: Lungs: 0-No policy change clerk baseline Other: PAST MEDICAL HISTORY [...] CAPSULE BY MOUTH TWICE A DAY ??? [id number]-WNOJ PO Take by mouth once daily ??? [...] fluticasone propionate (FLONASE) 50 MCG/ACT nasal spray [place] 2 (two) sprays into each nostril once daily ??? gabapentin (Neurontin) 300 MG capsule Take 1 (one) capsule by mouth 3 times daily ??? [id number]-GFJHIDDQX-SZF-C-HYAL PO Take 1 tablet by mouth 3 [...] PM. > Dictated by Donald Mayer MD (Cilnical Scientist) 08/19/2022 4:15 PM Tiesha Mckeon DO have [...] PM. > Dictated by Donald Mayer MD (Cilnical Scientist) 08/19/2022 4:15 PM Tiesha Mckeon DO have [...] st Contact Info) Description 08/02/2024 2:20 PM SUMMER ANALYST Appointment [facility] [address] [place] [address] 08/02/2024 3:00 PM SUMMER ANALYST Office Visit [facility] - Hematology/Oncology [address] [place] [phone] Remi Beckett MD [address] [place] [phone] 08/18/2024 1:45 PM SUMMER ANALYST Office Visit [facility] - ENT [address] [place] [phone] Neri Delgado MD [address] [place] [address] 08/30/2024 2:20 PM SUMMER ANALYST Appointment [facility] [address] [place] [phone] Pending Results Name Type Priority Associated Diagnoses [...] gland documented in this encounter Care Teams Motorcycle Subassembler Relationship Specialty Start Date End Date Taniya Grimes MD [address] [place] [address] 2L DIV [place] [phone] PCP - General 07/15/22 10/06/22 Adriana Adams DO [address] [place] [phone] Resident - PCP Internal Medicine 04/06/22 01/12/23 documented as of this encounter
--- OUTSIDE RECORDS SUMMARY | 2024-07-26 08:32 | XMS_ITS | Encounter Summary ---
Author Organization [facility] Address [address] [place] [address] Care Team Providers Care Salesperson Wigs Name Role Phone Adriana Adams DO Unavailable Taniya Grimes MD Primary Care Provider [phone] Encounter Details Date Type Department Care Team (Late st Contact Info) Description 09/08/2022 Orders Only [facility] [address] [facility], [place] [phone] Coy Gómez MD [facility] 2L DIV OF NEUROSURGERY [place], [place] [phone] Cervical spine tumor Social History Tobacco Use [...] Coronavirus/COVID-19? No / Unsure 09/02/2022 2:14 PM LANDSCAPE NURSERYMAN documented as of this encounter Functional Status [...] Contact Info) Description 08/02/2024 2:20 PM LANDSCAPE NURSERYMAN Appointment [facility]5 [place] [address] 08/02/2024 3:00 PM LANDSCAPE NURSERYMAN Office Visit [facility] - Hematology/Oncology [address] [place] [phone] Remi Beckett MD [address] [place] [phone] 08/18/2024 1:45 PM LANDSCAPE NURSERYMAN Office Visit [facility] - ENT [address] [place] [phone] Neri Delgado MD [address] [place] [address] 08/30/2024 2:20 PM LANDSCAPE NURSERYMAN Appointment [facility] [address] [place] [address] documented as of this encounter Visit Diagnoses Diagnosis 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
--- OUTSIDE RECORDS SUMMARY | 2024-07-26 08:32 | XMS_ITS | Encounter Summary ---
Author Organization [facility] Address [address] [place] [address] Care Team Providers Care Auto Detailer Name Role Phone Adriana Adams DO Unavailable Taniya Grimes MD Primary Care Provider [phone] Reason for Referral * Procedure (Routine) - Closed Specialty Diagnoses / Procedures Referred By Contac t Referred To Contact Cardiology Diagnoses Pre-op testing Procedures EKG 12-LEAD Coy Gómez MD [address] [facility] 2L [place] [address] Referral ID Status Reason Start Date Expiration Date Visits Re quested Visits Authorized [id number] Closed 09/02/2022 09/02/2023 1 1 Encounter Details Date Type Department Care Team (Latest Contact Info) Description 09/14/2022 2:18 PM CDT - 09/14/2022 2:49 PM CDT Hospital Encounter [facility] EKG/HOLTER [address] [place] [address] Coy Gómez MD [address] [facility] 2L [place] [address] Discharge Disposition: Home or Self Care Social [...] Coronavirus/COVID-19? No / Unsure 09/02/2022 2:14 PM GREASE MAKER HEAD documented as of this encounter Functional Status [...] A DAY 60 capsule 11 02/22/2022 05/28/2023 [id number]-[id number]-VVHI PO Take by mouth once daily 06/13/2023 [...] fluticasone propionate (FLONASE) 50 MCG/ACT nasal spray [place] 2 (two) sprays into each nostril once daily 48 g 10/20/2021 11/25/2022 gabapentin (Neurontin) 300 MG capsuleIndications:Nicole stahl osteoarthritis of left hip Take 1 (one) capsule by mouth 3 times daily 90 capsule 5 04/06/2022 11/19/2022 [id number]-JJBYKUDFQ-HSD-C -HYAL PO Take 1 tablet by mouth [...] st Contact Info) Description 08/02/2024 2:20 PM GREASE MAKER HEAD Appointment [facility] [address] [place] [address] 08/02/2024 3:00 PM GREASE MAKER HEAD Office Visit [facility] - Hematology/Oncology [address] [place] [phone] Remi Beckett MD [address] [place] [phone] 08/18/2024 1:45 PM GREASE MAKER HEAD Office Visit [facility] - ENT [address] [place] [phone] Neri Delgado MD [address] [place] [address] 08/30/2024 2:20 PM GREASE MAKER HEAD Appointment [facility] [address] [place] [address] documented as of this encounter Procedures Procedure Name Priority Date/Time Associated Diagnosis Comments EKG 12-LEAD Routine 09/14/2022 1:58 PM CDT Pre-op testing documented in this encounter Results * EKG 12-LEAD (09/14/2022 1:58 PM CDT) Ventricular Rate 87 BPM SL MUSE Atrial Rate 87 BPM [facility] MUSE P-R Interval 118 ms [facility] MUSE QRS Duration ms 80 ms [facility] MUSE Q-T Interval ms 376 ms [facility] MUSE QTC Calculation (Bezet) 452 ms [facility] MUSE Calculated P [place] 52 degrees SL MUSE Calculated R [place] 39 degrees [facility] MUSE Calculated T [place] 56 degrees [facility] MUSE Interpretation EKG NORMAL SINUS RHYTHM NONSPECIFIC ST ABNORMALITY ABNORMAL ECG NO PREVIOUS ECGS AVAILABLE Confirmed by Lulu ROMERO, Hermelinda ([id number]) on 09/14/2022 11:29:48 PM [facility] MUSE 09/14/2022 1:58 PM CDT 09/14/2022 11:29 PM CDT Coy Gómez MD ECG ORDERABLES [facility] MUSE documented in this encounter Visit Diagnoses Diagnosis Pre-op testing Preoperative examination, unspecified documented in this encounter Care Teams Auto Detailer Relationship Specialty Start Date End Date Taniya Grimes MD [address] [place] [address] 2L DIV OF [employer] [place] [phone] PCP - General 07/15/22 10/06/22 Adriana Adams DO [address] [place] [phone] Resident - PCP Internal Medicine 04/06/22 01/12/23 documented as of this encounter
--- OUTSIDE RECORDS SUMMARY | 2024-07-26 08:32 | XMS_ITS | Encounter Summary ---
Author Organization [facility] Address [address] [facility] [place] [address] Care Team Providers Care Lockstitch Tunnel Elastic Operator Name Role Phone Adriana Adams DO Unavailable Taniya Grimes MD Primary Care Provider Encounter Details Date Type Department Care Team (Latest Contact Info) Description 09/18/2022 10:31 AM CDT - 09/18/2022 11:59 PM CDT Hospital Encounter [facility] [address] [place], [place] [phone] Marcio Mcintosh MD [address] [place], [place] [phone] Discharge Disposition: Home or Self Care Social [...] Coronavirus/COVID-19? No / Unsure 09/02/2022 2:14 PM MEASUREMENT OPERATOR documented as of this encounter Functional [...] A DAY 60 capsule 11 02/22/2022 05/28/2023 [id number]-[id number]-BCIS PO Take by mouth once daily 06/13/2023 [...] fluticasone propionate (FLONASE) 50 MCG/ACT nasal spray [place] 2 (two) sprays into each nostril once daily 48 g 10/20/2021 11/25/2022 gabapentin (Neurontin) 300 MG capsuleIndications:Nicole favio osteoarthritis of left hip Take 1 (one) capsule by mouth 3 times daily 90 capsule 5 04/06/2022 11/19/2022 [id number]-[id number]-CEB-C -HYAL PO Take 1 tablet by mouth [...] st Contact Info) Description 08/02/2024 2:20 PM MEASUREMENT OPERATOR Appointment [facility] [address] [place] [address] 08/02/2024 3:00 PM MEASUREMENT OPERATOR Office Visit [facility] - Hematology/Oncology [address] [place] [phone] Remi Beckett MD [address] [place] [phone] 08/18/2024 1:45 PM MEASUREMENT OPERATOR Office Visit [facility] - ENT [address] [place] [phone] Neri Delgado MD [address] [place] [address] 08/30/2024 2:20 PM MEASUREMENT OPERATOR Appointment [facility] [address] [place] [address] documented as of this encounter Procedures Procedure [...] on filedocumented in this encounter Care Teams Lockstitch Tunnel Elastic Operator Relationship Specialty Start Date End Date Taniya Grimes MD [address] [facility] 2L [facility] [place] [phone] PCP - General 07/15/22 10/06/22 Adriana Adams DO [address] [place] [address] Resident - PCP Internal Medicine 04/06/22 01/12/23 documented as of this encounter
--- OUTSIDE RECORDS SUMMARY | 2024-07-26 08:32 | XMS_ITS | Encounter Summary ---
Author Organization [facility] Address [address] [facility] [place] [address] Care Team Providers Care National Coverage Specialist Name Role Phone Adriana Adams DO Unavailable Taniya Grimes MD Primary Care Provider [phone] Encounter Details Date Type Department Care Team [...] Coronavirus/COVID-19? No / Unsure 09/02/2022 2:14 PM PARTS DRIVER documented as of this encounter Functional [...] st Contact Info) Description 08/02/2024 2:20 PM PARTS DRIVER Appointment [facility] [place] [address] 08/02/2024 3:00 PM PARTS DRIVER Office Visit [facility] - Hematology/Oncology [address] [place] [phone] Remi Beckett MD [address] [place] [phone] 08/18/2024 1:45 PM PARTS DRIVER [facility] [address] [place] [phone] Neri Delgado MD [address] [place] [address] 08/30/2024 2:20 PM PARTS DRIVER Appointment [facility] [address] [place] [address] documented as of this encounter Visit Diagnoses Not on filedocumented in this encounter Care Teams National Coverage Specialist Relationship Specialty Start Date End Date Taniya Grimes MD [address] [place] [address] 2L DIV OF [place] [address] PCP - General 07/15/22 10/06/22 Adriana Adams DO [address] [place] [phone] Resident - PCP Internal Medicine 04/06/22 01/12/23 documented as of this encounter
--- OUTSIDE RECORDS SUMMARY | 2024-07-26 08:32 | XMS_ITS | Encounter Summary ---
Author Organization [facility] Address [address] [facility] [place] [address] Care Team Providers Care Sports Complex Attendant Name Role Phone Adriana Adams DO Unavailable Taniya Grimes MD Primary Care Provider Reason for Visit * Reason Onset Date Comments Future Appointment 09/17/2022 Encounter Details Date Type Department Care Team (Late st Contact Info) Description 09/17/[address] [address] Haleigh Hurt, JOSY Future Appointment [...] Coronavirus/COVID-19? No / Unsure 09/02/2022 2:14 PM LOGISTICS SUPPLY OFFICER documented as of this encounter Functional [...] st Contact Info) Description 08/02/2024 2:20 PM LOGISTICS SUPPLY OFFICER Appointment [facility] [address] [place] [address] 08/02/2024 3:00 PM LOGISTICS SUPPLY OFFICER Office Visit [facility] - Hematology/Oncology [address] [place] [phone] Remi Beckett MD [address] [place] [phone] 08/18/2024 1:45 PM LOGISTICS SUPPLY OFFICER Office Visit [facility] - ENT [address] [place] [phone] Neri Delgado MD [address] [place] [address] 08/30/2024 2:20 PM LOGISTICS SUPPLY OFFICER Appointment [facility] [address] [place] [address] documented as of this encounter Visit Diagnoses Not on filedocumented in this encounter Care Teams Sports Complex Attendant Relationship Specialty Start Date End Date Taniya Grimes MD [address] [place] [address] PCP - General 07/15/22 10/06/22 Adriana Adams DO [address] [place] [address] Resident - PCP Internal Medicine 04/06/22 01/12/23 documented as of this encounter
--- OUTSIDE RECORDS SUMMARY | 2024-07-26 08:32 | XMS_ITS | Encounter Summary ---
Author Organization [facility] Address [address] [facility] [place] [address] Care Team Providers Care Email Marketing Processor Name Role Phone Adriana Adams DO Unavailable Taniya Grimes MD Primary Care Provider [phone] Encounter Details Date Type Department Care Team (Latest Contact Info) Description 09/14/2022 3:06 PM CDT - 09/14/2022 11:59 PM CDT Hospital Encounter [facility] DIAGNOSTIC RAD OP [address] [place] [address] Coy Gómez MD [address] [facility] 2[place] [address] Discharge Disposition: Home or Self Care Social [...] Coronavirus/COVID-19? No / Unsure 09/02/2022 2:14 PM CLEANING TECHNICIAN documented as of this encounter Functional [...] A DAY 60 capsule 11 02/22/2022 05/28/2023 [id number]-YTUERBRID-VANA PO Take by mouth once daily 06/13/2023 [...] fluticasone propionate (FLONASE) 50 MCG/ACT nasal spray [place] 2 (two) sprays into each nostril once daily 48 g 10/20/2021 11/25/2022 gabapentin (Neurontin) 300 MG capsuleIndications:Nicole stahl osteoarthritis of left hip Take 1 (one) capsule by mouth 3 times daily 90 capsule 5 04/06/2022 11/19/2022 FLJXJV-XGIZEWHTW-HDK-C -HYAL PO Take 1 tablet by mouth [...] st Contact Info) Description 08/02/2024 2:20 PM CLEANING TECHNICIAN Appointment [facility] [address] [place] [address] 08/02/2024 3:00 PM CLEANING TECHNICIAN Office Visit [facility] - Hematology/Oncology [address] [place] [phone] Remi Beckett MD [address] [place] [phone] 08/18/2024 1:45 PM CLEANING TECHNICIAN Office Visit [facility] - ENT [address] [place] [phone] Neri Delgado MD [address] [place] [address] 08/30/2024 2:20 PM CLEANING TECHNICIAN Appointment [facility] [address] [place] [address] documented as of this encounter Procedures Procedure [...] DATE/TIME OF EXAM: ??09/14/2022 3:09 PM, LOCATION [facility] INDICATION: Z01.818: Pre-op testing ADDITIONAL CLINICAL INFORMATION: COMPARISON: No prior study is available for comparison. FINDINGS/IMPRESSION: Calcified granuloma of right upper lung field is seen. There is no focal consolidation, pleural effusion, or pneumothorax. The cardiomediastinal silhouette is normal. The visible bony thorax is intact. > Dictated by Wayne Carbajal MD (vice president payer). Zi Mckeon MD have personally reviewed and interpreted this examination/study. > Interpreting Provider: Zi Vee MD on 09/14/2022 3:54 PM Procedure Note Zi Vee MD - 09/14/2022 PROCEDURE: XR CHEST 2VW, DATE/TIME OF EXAM: 09/14/2022 3:09 PM, LOCATION [facility] INDICATION: Z01.818: Pre-op testing ADDITIONAL CLINICAL INFORMATION: COMPARISON: No prior study is available for comparison. FINDINGS/IMPRESSION: Calcified granuloma of right upper lung field is seen. There is no focal consolidation, pleural effusion, or pneumothorax. The cardiomediastinal silhouette is normal. The visible bony thorax is intact. > Dictated by Wayne Carbajal MD (vice president payer). Zi Mckeon MD have personally reviewed and interpreted this examination/study. > Interpreting Provider: Zi Vee MD on 3/13/68065:54 PM Coy Gómez MD DIAGNOSTIC IMAGING O RDERABLES documented in this encounter Visit Diagnoses Diagnosis Pre-op testing Preoperative examination, unspecified documented in this encounter Care Teams Email Marketing Processor Relationship Specialty Start Date End Date Taniya Grimes MD [address] [place] [phone] PCP - General 07/15/22 10/06/22 Adriana Adams DO [address] [place] [phone] Resident - PCP Internal Medicine 04/06/22 01/12/23 documented as of this encounter
--- OUTSIDE RECORDS SUMMARY | 2024-07-26 08:32 | XMS_ITS | Encounter Summary ---
Author Organization [facility] Address [address] [facility] [place] [address] Care Team Providers Care Infantryman Name Role Phone Adriana Adams DO Unavailable Taniya Grimes MD Primary Care Provider Joseph Manzanares MD Primary Care Provider [phone] Encounter Details Date Type Department Care Team (Late st Contact Info) Description 09/29/2022 Orders Only [facility] RAD [facility]C [address] [place] [address] Marcio Mcintosh MD [address] [place] [address] Social History Tobacco Use Types Packs/Day Years [...] Coronavirus/COVID-19? No / Unsure 09/02/2022 2:14 PM CITY ADMINISTRATOR documented as of this encounter Functional Status [...] st Contact Info) Description 08/02/2024 2:20 PM CITY ADMINISTRATOR Appointment [facility] [address] [place] [address] 08/02/2024 3:00 PM CITY ADMINISTRATOR Office Visit [facility] - Hematology/Oncology [address] [place] [phone] Remi Beckett MD [address] [place] [phone] 08/18/2024 1:45 PM CITY ADMINISTRATOR Office Visit [facility] - ENT [address] [place] [phone] Neri Delgado MD [address] [place] [address] 08/30/2024 2:20 PM CITY ADMINISTRATOR Appointment [facility] [address] [place] [address] documented as of this encounter Visit Diagnoses Not on filedocumented in this encounter Care Teams Infantryman Relationship Specialty Start Date End Date Taniya Grimes MD [address] [place] [address] OF [place] [phone] PCP - General 07/15/22 10/06/22 Joseph Manzanares MD [address] [place] [phone] PCP - General Internal Medicine 10/07/22 04/20/23 Adriana Adams DO [address] [place] [phone] Resident - PCP Internal Medicine 04/06/22 01/12/23 documented as of this encounter
--- OUTSIDE RECORDS SUMMARY | 2024-07-26 08:32 | XMS_ITS | Encounter Summary ---
Author Organization [facility] Health Address [address] [facility] [place] [address] Care Team Providers Care Emergency Management Director Name Role Phone Adriana Adams DO Unavailable Taniya Grimes MD Primary Care Provider Encounter Details Date Type Department Care Team (Latest Contact Info) Description 09/14/2022 2:50 PM CDT - 09/14/2022 3:04 PM CDT Hospital Encounter [facility] LAB OP DRAW STATION [address] [place] [address] Coy Gómez MD [address] [facility] 2L [facility] [place] [address] Discharge Disposition: Home or Self Care Social [...] Coronavirus/COVID-19? No / Unsure 09/02/2022 2:14 PM BLACKSMITH ASSISTANT documented as of this encounter Functional [...] A DAY 60 capsule 11 02/22/2022 05/28/2023 VVXHYLW-[id number]-IDBA PO Take by mouth once daily 06/13/2023 [...] fluticasone propionate (FLONASE) 50 MCG/ACT nasal spray [place] 2 (two) sprays into each nostril once daily 48 g 10/20/2021 11/25/2022 gabapentin (Neurontin) 300 MG capsuleIndications:Nicole stahl osteoarthritis of left hip Take 1 (one) capsule by mouth 3 times daily 90 capsule 5 04/06/2022 11/19/2022 JOQJNO-CTEOUZOLU-FVL-C -HYAL PO Take 1 tablet by mouth [...] st Contact Info) Description 08/02/2024 2:20 PM BLACKSMITH ASSISTANT Appointment [facility] [address] [place] [address] 08/02/2024 3:00 PM BLACKSMITH ASSISTANT Office Visit [facility] - Hematology/Oncology [address] [place] [phone] Remi Beckett MD [address] [place] [phone] 08/18/2024 1:45 PM BLACKSMITH ASSISTANT Office Visit [facility] - ENT [address] [place] [phone] Neri Delgado MD [address] [place] [address] 08/30/2024 2:20 PM BLACKSMITH ASSISTANT Appointment [facility] [address] [place] [address] documented as of this encounter Procedures Procedure Name Priority Date/Time Associated Diagnosis Comments PTT [facility] Routine 09/14/2022 3:13 PM CDT Pre-op testing PT-INR [facility] Routine 09/14/2022 3:13 PM CDT Pre-op testing CBC W AUTO DIFFERENTIAL Routine 09/14/2022 3:13 PM CDT Pre-op testing BASIC METABOLIC PANEL (CALCIUM TOTAL) Routine 09/14/2022 3:13 PM CDT Pre-op testing documented in this encounter Results * PTT [facility] (09/14/2022 3:13 PM CDT) APTT 27.8 23.0 - 38.4 Seconds 09/14/2022 4:22 PM CDT [facility] Comment:Suggested therapeuti c range for full dose I.V. unfractionated heparin therapy for venous thromboembolism is 71 to 109 seconds. Blood BLOOD SPECIMEN / Unknown Lab Venipuncture / Unknown 09/14/2022 3:13 PM CDT 09/14/2022 4:00 PM CDT Coy Gómez MD LAB - COAGULATION OR DERABLES Performing Organization Address [facility]/State/[facility] Co de Phone Number [facility] [address] [place] [address], [facility] [phone] * PT-INR [facility] (09/14/2022 3:13 PM CDT) PT 12.8 12.1 - 14.8 Seconds 09/14/2022 4:21 PM CDT [facility] INR 1.0 See Comment 09/14/2022 4:21 PM CDT [facility] Comment:The suggested therap eutic range for standard coumadin (warfarin) therapy is an INR of 2.0-3.0. For high-risk patients (Mechanical Mitral Valve Prosthesis, etc.), the suggested prophylactic therapeutic range is an INR of 2.5-3.5. Blood BLOOD SPECIMEN / Unknown Lab Venipuncture / Unknown 09/14/2022 3:13 PM CDT 09/14/2022 4:00 PM CDT Coy Gómez MD LAB - COAGULATION OR DERABLES [facility] [address] [place] [address], [facility] [phone] * (ABNORMAL) CBC WITH DIFFERENTIAL (09/14/2022 3:13 PM CDT) WBC 6.7 3.5 - 10.5 10? 3 /uL 09/14/2022 4:11 PM T [facility] RBC 4.31 3.80 - 5.20 10? 6 /uL 09/14/2022 4:11 PM [facility] Hemoglobin 13.1 12.0 - 15.6 g/dL 09/14/2022 4:11 PM [facility] Hematocrit 39.2 35.0 - 45.0 % 09/14/2022 4:11 PM [facility] MCV 91.0 80.7 - 98.3 fL 09/14/2022 4:11 PM [facility] MCH 30.4 26.7 - 34.0 pg 09/14/2022 4:11 PM [facility] MCHC 33.4 30.8 - 35.9 g/dL 09/14/2022 4:11 PM [facility] RDW-SD 42.2 36.0 - 50.0 fL 09/14/2022 4:11 PM [facility] RDW-CV 12.8 11.2 - 14.8 % 09/14/2022 4:11 PM [facility] Platelet Count 256 150 - 400 10? 3 /uL 09/14/2022 4:11 PM [facility] MPV 9.7 9.4 - 12.9 fL 09/14/2022 4:11 PM [facility] nRBC Absolute 0.00 0 10? 3 /uL 09/14/2022 4:11 PM [facility] nRBC Auto 0.0 0 /100 WBC 09/14/2022 4:11 PM [facility] Neutrophils % 61.2 35.0 - 70.0 % 09/14/2022 4:11 PM [facility] Lymphocytes % 26.3 20.0 - 43.0 % 09/14/2022 4:11 PM [facility] Monocytes % 9.9 5.0 - 13.0 % 09/14/2022 4:11 PM [facility] Eosinophils % 0.9 0.0 - 6.0 % 09/14/2022 4:11 PM T [facility] Basophil % 1.4 0.0 - 2.0 % 09/14/2022 4:11 PM [facility] Neutrophils Absolute 4.08 1.60 - 7.00 10? 3 /uL 09/14/2022 4:11 PM [facility] Lymphocyte Absolute 1.75 1.10 - 3.90 10? 3 /uL 09/14/2022 4:11 PM T [facility] Monocytes Absolute 0.66 0.26 - 1.07 10? 3 /uL 09/14/2022 4:11 PM T [facility] Eosinophils Absolute 0.06 0.00 - 0.47 10? 3 /uL 09/14/2022 4:11 PM [facility] Basophils Absolute 0.09(H) 0.00 - 0.08 10? 3 /uL 09/14/2022 4:11 PM [facility] Immature Granulocytes % 0.3 0.0 - 1.0 % 09/14/2022 4:11 PM [facility] Immature Granulocytes Absolute 0.02 09/14/2022 4:11 PM [facility] Blood BLOOD SPECIMEN / Unknown Lab Venipuncture / Unknown 09/14/2022 3:13 PM CDT 09/14/2022 4:00 PM CDT Coy Gómez MD LAB - HEMATOLOGY ORD ERABLES [facility] [address] [place] [address], [facility] [phone] * (ABNORMAL) BASIC METABOLIC PANEL (CALCIUM TOTAL) (09/14/2022 3:13 PM CDT) BUN 12 7 - 26 mg/dL 09/14/2022 4:25 PM [facility] Creatinine 0.93 0.56 - 0.96 mg/dL 09/14/2022 4:25 PM [facility] Sodium 140 136 - 145 mmol/L 09/14/2022 4:25 PM [facility] Potassium 3.9 3.5 - 4.5 mmol/L 09/14/2022 4:25 PM [facility] Chloride 103 98 - 107 mmol/L 09/14/2022 4:25 PM [facility] CO2 27 22 - 29 mmol/L 09/14/2022 4:25 PM [facility] Glucose 98 70 - 115 mg/dL 09/14/2022 4:25 PM [facility] Calcium 9.0 8.4 - 10.2 mg/dL 09/14/2022 4:25 PM [facility] Anion Gap 14 8 - 18 09/14/2022 4:25 PM [facility] BUN/Creatinine Ratio 13 7 - 23 09/14/2022 4:25 PM [facility] Osmolality Calculated 290 270 - 300 mOsm/kg 09/14/2022 4:25 PM [facility] eGFR by CKD-EPI 69(L) >=90 mL/min/1.7 3 m2 09/14/2022 4:25 PM [facility] Blood BLOOD SPECIMEN / Unknown Lab Venipuncture / Unknown 09/14/2022 3:13 PM CDT 09/14/2022 4:00 PM CDT Coy Gómez MD LAB - CHEMISTRY ASH WEAVER [facility] [address] [place] [address], [facility] [phone] documented in this encounter Visit Diagnoses Diagnosis Pre-op testing Preoperative examination, unspecified documented in this encounter Care Teams Emergency Management Director Relationship Specialty Start Date End Date Taniya Grimes MD [address] [place] [address] OF [facility] [place] [address] PCP - General 07/15/22 10/06/22 Adriana Adams DO [address] [place] [address] Resident - PCP Internal Medicine 04/06/22 01/12/23 documented as of this encounter
--- OUTSIDE RECORDS SUMMARY | 2024-07-26 08:32 | XMS_ITS | Encounter Summary ---
Author Organization [facility] Address [address] [facility] [place] [address] Care Team Providers Care Category Development Analyst Name Role Phone Adriana Adams DO Unavailable Taniya Grimes MD Primary Care Provider Reason for Visit * Radiology Services (Routine) - Closed Specialty Diagnoses / Procedures Referred By Yuan robins Referred To Contact CT Scan Diagnoses Rotator cuff arthropathy of left shoulder Pre-op testing Procedures CT CUSTOM SHOULDER LT REPLACEMENT Mary Beth Lauren MD [address] [facility] [address] [place] [address] [facility] [address] [place] [address] Referral ID Status Reason Start Date Expiration Date Visits Re quested Visits Authorized [id number] Closed 09/23/2022 09/23/2023 1 1 Encounter Details Date Type Department Care Team (Latest Contact Info) Description 09/25/2022 11:35 AM CDT - 09/25/2022 11:59 PM CDT [facility] [address] [place] [address] Mary Beth Lauren MD [address] [facility] [address] [place] [address] Discharge Disposition: Home or Self [...] Coronavirus/COVID-19? No / Unsure 09/02/2022 2:14 PM PROFESSOR OF ENGINEERING documented as of this encounter Functional Status [...] A DAY 60 capsule 11 02/22/2022 05/28/2023 [id number]-[id number]-URUP PO Take by mouth once daily 06/13/2023 [...] fluticasone propionate (FLONASE) 50 MCG/ACT nasal spray [place] 2 (two) sprays into each nostril once daily 48 g 10/20/2021 11/25/2022 gabapentin (Neurontin) 300 MG capsuleIndications:Nicole stahl osteoarthritis of left hip Take 1 (one) capsule by mouth 3 times daily 90 capsule 5 04/06/2022 11/19/2022 HXBGRE-QPWULIZGV-FJR-C -HYAL PO Take 1 tablet by mouth [...] st Contact Info) Description 08/02/2024 2:20 PM PROFESSOR OF ENGINEERING Appointment [facility] [address] [place] [address] 08/02/2024 3:00 PM PROFESSOR OF ENGINEERING Office Visit [facility] - Hematology/Oncology [address] [place] [phone] Remi Beckett MD [address] [place] [address] 08/18/2024 1:45 PM PROFESSOR OF ENGINEERING Office Visit [facility] - ENT [address] [place] [address] Neri Delgado MD [address] [place] [address] 08/30/2024 2:20 PM PROFESSOR OF ENGINEERING Appointment [facility] [address] [place] [address] documented as of this encounter Procedures Procedure [...] DATE/TIME OF EXAM: 09/25/2022 11:48 AM, LOCATION ??[facility] INDICATION: M12.812: Rotator cuff arthropathy of [...] shoulder. Report dictated by Wayne Carbajal MD (vice president payment) Zi Mckeon MD have personally reviewed and interpreted this examination/study. > Interpreting Provider: Zi Vee MD on 09/26/2022 10:35 AM Procedure Note Zi Vee MD - 09/26/2022 PROCEDURE: CT CUSTOM SHOULDER LT REPLACEMENT, DATE/TIME OF EXAM: 09/25/2022 11:48 AM, LOCATION [facility] INDICATION: M12.812: Rotator cuff arthropathy of [...] shoulder. Report dictated by Wayne Carbajal MD (vice president payment) I, Zi Vee MD have personally reviewed and interpreted this examination/study. > Interpreting Provider: Zi Vee MD on 0:35 AM Mary Beth Lauren MD CT ORDERABLES documented in this encounter Visit Diagnoses Diagnosis Rotator cuff arthropathy of left shoulder Pre-op testing Preoperative examination, unspecified documented in this encounter Care Teams Category Development Analyst Relationship Specialty Start Date End Date Taniya Grimes MD [address] OF [facility] [place] [place] [phone] PCP - General 07/15/22 10/06/22 Adriana Adams DO [address] [place] [address] Resident - PCP Internal Medicine 04/06/22 01/12/23 documented as of this encounter
--- OUTSIDE RECORDS SUMMARY | 2024-07-26 08:33 | XMS_ITS | Encounter Summary ---
Author Organization [facility] Address [address] [facility] [place] [address] Care Team Providers Care Clamp Remover Name Role Phone Adriana Adams DO Unavailable Taniya Grimes MD Primary Care Provider Reason for Referral * Radiology Services (Routine) - Closed Specialty Diagnoses / Procedures Referred By Yuan robins Referred To Contact CT Scan Diagnoses Rotator cuff arthropathy of left shoulder Pre-op testing Procedures CT CUSTOM SHOULDER LT REPLACEMENT Mary Beth Lauren MD [address] [facility] [address] [place] [address] [facility] [address] [place] [address] Referral ID Status Reason Start Date Expiration Date Visits Re quested Visits Authorized [id number] Closed 09/23/2022 09/23/2023 1 1 NISTRATIVE RESOURCES ASSOCIATE Encounter Details Date Type Department Care Team (Late st Contact Info) Description 09/03/2022 Orders Only [facility] - [facility]opedics [address] [facility], [place] [address] Mary Beth Lauren MD [address] [facility] [address] [place] [address] Rotator cuff arthropathy of left [...] Coronavirus/COVID-19? No / Unsure 09/02/2022 2:14 PM ADMINISTRATIVE RESOURCES ASSOCIATE documented as of this encounter Functional [...] st Contact Info) Description 08/02/2024 2:20 PM ADMINISTRATIVE RESOURCES ASSOCIATE Appointment [facility] [address] [place] [address] 08/02/2024 3:00 PM ADMINISTRATIVE RESOURCES ASSOCIATE Office Visit [facility] - Hematology/Oncology [address] [place] [phone] Remi Beckett MD [address] [place] [phone] 08/18/2024 1:45 PM ADMINISTRATIVE RESOURCES ASSOCIATE Office Visit [facility] - ENT [address] [place] [phone] Neri Delgado MD [address] [place] [address] 08/30/2024 2:20 PM ADMINISTRATIVE RESOURCES ASSOCIATE Appointment [facility] [address] [place] [address] documented as of this encounter Results * CT CUSTOM SHOULDER LT REPLACEMENT (09/25/2022 11:47 AM CDT) Anatomical Region Laterality Modality Upper Extremity Computed Tomogra phy 09/25/2022 2:53 PM CDT Narrative 09/26/2022 10:35 AM CDT PROCEDURE: ??CT CUSTOM SHOULDER LT REPLACEMENT, DATE/TIME OF EXAM: 09/25/2022 11:48 AM, LOCATION ??[facility] INDICATION: M12.812: Rotator cuff arthropathy of [...] shoulder. Report dictated by Wayne Carbajal MD (plant operations vice president) I, Zi Vee MD have personally reviewed and interpreted this examination/study. > Interpreting Provider: Zi Vee MD on 09/26/2022 10:35 AM Procedure Note Zi Vee MD - 09/26/2022 PROCEDURE: CT CUSTOM SHOULDER LT REPLACEMENT, DATE/TIME OF EXAM: 09/25/2022 11:48 AM, LOCATION [facility] INDICATION: M12.812: Rotator cuff arthropathy of [...] shoulder. Report dictated by Wayne Carbajal MD (plant operations vice president) I, Zi Vee MD have personally reviewed and interpreted this examination/study. > Interpreting Provider: Zi Vee MD on 0:35 AM Mary Beth Lauren MD CT ORDERABLES documented in this encounter Visit Diagnoses Diagnosis Rotator cuff arthropathy of left shoulder- Primary Pre-op testing Preoperative examination, unspecified Rotator cuff arthropathy of left shoulder Pre-op testing Preoperative examination, unspecified documented in this encounter Care Teams Clamp Remover Relationship Specialty Start Date End Date Taniya Grimes MD [address] [place] [address] PCP - General 07/15/22 10/06/22 Adriana Adams DO [address] [place] [address] Resident - PCP Internal Medicine 04/06/22 01/12/23 documented as of this encounter
--- OUTSIDE RECORDS SUMMARY | 2024-07-26 08:33 | XMS_ITS | Encounter Summary ---
Author Organization [facility] Health Address [address] [facility] [place] [address] Care Team Providers Care Glaze Carrier Name Role Phone Adriana Adams DO Unavailable [...] Coronavirus/COVID-19? No / Unsure 09/02/2022 2:14 PM JAWBONE BREAKER documented as of this encounter Functional Status [...] st Contact Info) Description 08/02/2024 2:20 PM JAWBONE BREAKER Appointment [facility] [address] [place] [address] 08/02/2024 3:00 PM JAWBONE BREAKER Office Visit [facility] - Hematology/Oncology [address] [place] [phone] Remi Beckett MD [address] [place] [phone] 08/18/2024 1:45 PM JAWBONE BREAKER Office Visit [facility] - ENT [address] [place] [phone] Neri Delgado MD [address] [place] [address] 08/30/2024 2:20 PM JAWBONE BREAKER Appointment [facility] [address] [place] [address] documented as of this encounter Visit Diagnoses Not on filedocumented in this encounter Care Teams Glaze Carrier Relationship Specialty Start Date End Date Taniya Grimes MD [address] [place] [address] 2L DIV OF [facility] [place] [address] PCP - General 07/15/22 10/06/22 Adriana Adams DO [address] [place] [phone] Resident - PCP Internal Medicine 04/06/22 01/12/23 documented as of this encounter
--- OUTSIDE RECORDS SUMMARY | 2024-07-26 08:33 | XMS_ITS | Encounter Summary ---
Author Organization [facility] Health Address [address] [facility] [place] [address] Care Team Providers Care Tablet Tester Name Role Phone Adriana Adams DO Unavailable Taniya Grimes MD Primary Care Provider Encounter Details Date Type Department Care Team (Late st Contact Info) Description 08/25/2022 Orders Only [facility] Endocrinology, Diabetes and Metabolism [address] [place] [address], [place] [phone] Yosi Bustamante MD [address] [place] [address] Div of Endocrinology [place], [place] [phone] Thyroid cancer (HCC); Postoperative hypothyroidism Social History [...] Coronavirus/COVID-19? No / Unsure 09/02/2022 2:14 PM LOWER SCHOOL MUSIC TEACHER documented as of this encounter Functional [...] st Contact Info) Description 08/02/2024 2:20 PM LOWER SCHOOL MUSIC TEACHER Appointment [facility] [address] [place] [address] 08/02/2024 3:00 PM LOWER SCHOOL MUSIC TEACHER Office Visit [facility] - Hematology/Oncology [address] [place] [phone] Remi Beckett MD [address] [place] [phone] 08/18/2024 1:45 PM LOWER SCHOOL MUSIC TEACHER Office Visit [facility] [address] [place] [phone] Neri Delgado MD [address] [place] [phone] 08/30/2024 2:20 PM LOWER SCHOOL MUSIC TEACHER Appointment [facility] [address] [place] [address] documented as of this encounter Visit Diagnoses Diagnosis Thyroid cancer (HCC) Malignant neoplasm of thyroid gland Postoperative hypothyroidism Postsurgical hypothyroidism documented in this encounter Care Teams Tablet Tester Relationship Specialty Start Date End Date Taniya Grimes MD [address] [place] [address] 2L DIV OF [facility] [place] [phone] PCP - General 07/15/22 10/06/22 Adriana Adams DO [address] [place] [phone] Resident - PCP Internal Medicine 04/06/22 01/12/23 documented as of this encounter
--- OUTSIDE RECORDS SUMMARY | 2024-07-26 08:33 | XMS_ITS | Encounter Summary ---
Author Organization [facility] Health Address [address] [facility] [place] [address] Care Team Providers Care Supply Controller Name Role Phone Adriana Adams DO [...] Contact Info) Description 08/02/2024 2:20 PM LOGISTICS ENGINEERING MANAGER Appointment [facility] [address] [place] [address] 08/02/2024 3:00 PM LOGISTICS ENGINEERING MANAGER Office Visit [facility] - Hematology/Oncology [address] [place] [address] Remi Beckett MD [address] [place] [address] 08/18/2024 1:45 PM LOGISTICS ENGINEERING MANAGER Office Visit [facility] - ENT [address] [place] [phone] Neri Delgado MD [address] [place] [address] 08/30/2024 2:20 PM LOGISTICS ENGINEERING MANAGER Appointment [facility] [address] [place] [address] documented as of this encounter Visit Diagnoses Not on filedocumented in this encounter Care Teams Supply Controller Relationship Specialty Start Date End Date Taniya Grimes MD [address] [place] [address] 2L DIV [place] [phone] PCP - General 07/15/22 10/06/22 Adriana Adams DO [address] [place] [phone] Resident - PCP Internal Medicine 04/06/22 01/12/23 documented as of this encounter
--- OUTSIDE RECORDS SUMMARY | 2024-07-26 08:33 | XMS_ITS | Encounter Summary ---
Author Organization [facility] Health Address [address] [facility] [place] [address] Care Team Providers Care Manager Of Construction Name Role Phone Adriana Adams DO Unavailable Taniya Grimes MD Primary Care Provider Encounter Details Date Type Department Care Team (Late st Contact Info) Description 08/13/2022 Orders Only [facility] Endocrinology, Diabetes and Metabolism [address] [place] [address], Second Level [phone] Yosi Bustamante MD [address] [place] [address] Div of Endocrinology [place], [place] [phone] Postoperative hypothyroidism ; Thyroid cancer (HCC) Social [...] st Contact Info) Description 08/02/2024 2:20 PM SENIOR PAYROLL ADMINISTRATOR Appointment [facility] [address] [place] [address] 08/02/2024 3:00 PM SENIOR PAYROLL ADMINISTRATOR Office Visit [facility] - Hematology/Oncology [address] [place] [phone] Remi Beckett MD [address] [place] [phone] 08/18/2024 1:45 PM SENIOR PAYROLL ADMINISTRATOR Office Visit [facility] - ENT [address] [place] [phone] Neri Delgado MD [address] [place] [address] 08/30/2024 2:20 PM SENIOR PAYROLL ADMINISTRATOR Appointment [facility] [address] [place] [address] documented as of this encounter Visit Diagnoses Diagnosis Postoperative hypothyroidism- Primary Postsurgical hypothyroidism Thyroid cancer (HCC) Malignant neoplasm of thyroid gland documented in this encounter Care Teams Manager Of Construction Relationship Specialty Start Date End Date Taniya Grimes MD [address] [place] [address] 2L DIV OF GEN INTERNAL MEDICINE [phone] PCP - General 07/15/22 10/06/22 Adriana Adams DO [address] [place] [phone] Resident - PCP Internal Medicine 04/06/22 01/12/23 documented as of this encounter
--- OUTSIDE RECORDS SUMMARY | 2024-07-26 08:33 | XMS_ITS | Encounter Summary ---
Author Organization [facility] Address [address] [facility] [place] [address] Care Team Providers Care Mobile Home Set Up Person Name Role Phone Adriana Adams DO Unavailable Taniya Grimes MD Primary Care Provider [phone] Reason for Visit * Reason Comments UTI Follow-up Encounter Details Date Type Department Care Team (Late st Contact Info) Description 08/12/2022 3:00 PM TANNERY GUMMER Office Visit [facility] General Internal Medicine [address] [place] [phone] Adriana Adams DO [address] [place] [address] Preventative health care (Primary Dx); Thyroid cancer [...] Comments Blood Pressure 128/85 08/12/2022 2:53 PM TANNERY GUMMER Pulse 82 08/12/2022 2:53 PM TANNERY GUMMER Temperature 36.3 ??C (97.3 ??F) 08/12/2022 2:53 PM CS T Respiratory Rate - - Oxygen Saturation 98% 08/12/2022 2:53 PM TANNERY GUMMER Inhaled Oxygen Concentration - - Weight 70.3 kg (155 lb) 08/12/2022 2:53 PM TANNERY GUMMER Height 157.5 cm (5' 2) 08/12/2022 2:53 PM TANNERY GUMMER Body Mass Index 28.35 08/12/2022 2:53 PM TANNERY GUMMER documented in this encounter Functional Status Functional [...] Adriana Adams DO - 08/12/2022 3:50 PM TANNERY GUMMER Ms. Hogan, You were seen in the [facility] for follow-up. Below is a summary of your visit. 1) You received the pneumonia vaccine while you were here. 2) you will need to get bloodwork downstairs 3) We highly recommend you getting the shingles vaccine 4) Please remember to get your colonoscopy and mammogram scheduled when possible. ERY GUMMER documented in this encounter Progress Notes * Adriana Adams DO - 08/12/2022 3:00 PM CST [facility] General Internal Medicine New Patient Note CC: Chief Complaint Patient presents with ??? UTI Follow-up History of Present Illness: Brisa Hogan is a 62 year old female w/PMHx thyroid cancer presenting to [facility] clinic for establishing care. - 08/2019 thyroid [...] Interval History: 08/12/22: - 07/06/22-07/12/22 admitted to [facility] for UTI, oxybutynin rx'd last visit, and [...] Past Medical History: Reviewed and updated in Rollbase (acquired by [employer]) History tab Past Surgical History: Reviewed and updated in Epic History tab Family History: Reviewed and updated in Epic History tab Social History: Reviewed and updated in Epic History tab Medications: Reviewed and updated in Epic Medications tab Allergies: Reviewed and updated in Rollbase (acquired by [employer]) Allergies tab Review of Systems: Bold if [...] testing: Personally reviewed. 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 Preventative Care/Health Maintenance: [...] DO 06/10/2022 3:28 PM PGY-3 Internal Medicine ERY GUMMER Associated attestation - Alejo Finch III, MD - 08/20/2022 1:57 PM TANNERY GUMMER Attending Physician Attestation I discussed the patient and reviewed the resident's note at the time of the visit and I agree with history, physical exam, assessment, and plan. Date of service: 08/12/2022 Alejo Finch III, MD documented in this encounter Plan of Treatment Upcoming Encounters Date Type Department Care Team (Late st Contact Info) Description 08/02/2024 2:20 PM TANNERY GUMMER Appointment [facility] [address] [place] [address] 08/02/2024 3:00 PM TANNERY GUMMER [facility] - Hematology/Oncology [address] [place] [phone] Remi Beckett MD [address] [place] [phone] 08/18/2024 1:45 PM TANNERY GUMMER Office Visit [facility] - ENT [address] [place] [phone] Neri Delgado MD [address] [place] [phone] 08/30/2024 2:20 PM TANNERY GUMMER Appointment [facility] [address] [place] [phone] documented as of this encounter Results * HIV-1 HIV-2 ANTIBODY + HIV P24 AG PANEL (New on 11/18) (08/14/2022 3:21 PM TANNERY GUMMER) HIV Antigen/Antibod y 1 & 2 Non-reacti ve Non-react oswaldo 08/14/2022 4:18 PM TANNERY GUMMER [facility] Comment:No Laboratory eviden ce of HIV infection. Blood BLOOD SPECIMEN / Unknown Lab Venipuncture / Unknown 08/14/2022 3:21 PM TANNERY GUMMER 08/14/2022 3:33 PM TANNERY GUMMER Adriana Adams DO LAB - CHEMISTRY [facility] [address] [place] [address], [facility] [phone] documented in this encounter Visit Diagnoses Diagnosis Preventative health care- Primary Routine general medical examination at a health care facility Thyroid cancer (HCC) Malignant neoplasm of thyroid gland documented in this encounter Care Teams Mobile Home Set Up Person Relationship Specialty Start Date End Date Taniya Grimes MD [address] DIV OF [facility] [place] [phone] PCP - General 07/15/22 10/06/22 Adriana Adams DO [address] [place] [address] Resident - PCP Internal Medicine 04/06/22 01/12/23 documented as of this encounter
--- OUTSIDE RECORDS SUMMARY | 2024-07-26 08:33 | XMS_ITS | Encounter Summary ---
Author Organization [facility] Address [address] [address] Care Team Providers Care Human Services Worker Name Role Phone Adriana Adams DO Unavailable Taniya Grimes MD Primary Care Provider Reason for Referral * Procedure (Routine) - Closed Specialty Diagnoses / Procedures Referred By Contac t Referred To Contact Cardiology Diagnoses Pre-op testing Procedures EKG 12-LEAD Coy Gómez MD [address] [place] [address] [address] [place] [address] Referral ID Status Reason Start Date Expiration Date Visits Re quested Visits Authorized [id number] Closed 09/02/2022 09/02/2023 1 1 ND PLANNER Reason for Visit * Reason Comments Consultation Spinal Canal Stenosi s With Cord Compress Encounter Details Date Type Department Care Team (Late st Contact Info) Description 09/02/2022 9:00 AM DEMAND PLANNER Office Visit [facility] [address] [place] [address], [place] [address] Coy Gómez MD [address] [facility] [address]L [place] [address] Pre-op testing (Primary Dx) Social History Tobacco [...] Coronavirus/COVID-19? No / Unsure 09/02/2022 2:14 PM DEMAND PLANNER documented as of this encounter Last Filed Vital Signs Vital Sign Reading Time Taken Comments Blood Pressure 130/75 09/02/2022 9:00 AM DEMAND PLANNER Pulse 87 09/02/2022 9:00 AM DEMAND PLANNER Temperature 36.8 ??C (98.2 ??F) 09/02/2022 9:00 AM CS T Respiratory Rate 18 09/02/2022 9:00 AM DEMAND PLANNER Oxygen Saturation 95% 09/02/2022 9:00 AM DEMAND PLANNER Inhaled Oxygen Concentration - - Weight 70.3 kg (155 lb) 09/02/2022 9:00 AM DEMAND PLANNER Height 157.5 cm (5' 2) 09/02/2022 9:00 AM DEMAND PLANNER Body Mass Index 28.35 09/02/2022 9:00 AM DEMAND PLANNER documented in this encounter Functional Status Functional [...] Instructions* Heather Oreilly - 09/02/2022 9:46 AM DEMAND PLANNER Surgery date 10/02/2022 will need to arrive at 0530am to [facility] 1st floor ACU (Rubi Díaz) NPO (nothing to eat or drink) after midnight Call pre admission testing 3 weeks prior to surgery for anesthesia clearance at [phone] Hold Asprin and NSAIDs 7 days prior to surgery For any questions please call Heather at [phone] ND PLANNER documented in this encounter Progress Notes * Coy Gómez MD - 09/02/2022 8:41 AM CST NEUROSURGERY CLINIC NOTE Chief Complaint (CC): HISTORY OF PRESENT ILLNESS (HPI): Brisa Hogan is a 61 year old female with aggressive PTC ([id number]) s/p thyroidectomy, tracheal resection/reanastamosis, bilateral neck dissections [...] ??? calcitriol (Rocaltrol) 0.5 MCG capsule ??? [id number] PO ??? celecoxib (CELEBREX) 200 MG capsule ??? cetirizine (ZYRTEC) 10 MG tablet ??? clonazePAM (KLONOPIN) 0.5 MG tablet ??? cyclobenzaprine (Flexeril) 5 MG tablet ??? famotidine (PEPCID) 20 MG tablet ??? fish oil/omega-3 fatty acids (PROMEGA;CARDI-OMEGA 3) 1000 MG capsule ??? fluticasone propionate (FLONASE) 50 MCG/ACT nasal spray ??? gabapentin (Neurontin) 300 MG capsule ??? [id number]-[id number]-BEV-C-HYAL PO ??? levothyroxine (Synthroid) 112 MCG tablet [...] neck healed Neuro: a Deltoid Bicep Tricep Heel Seam Rubber Wrist Ext Finger ext Hip Flexor Quad [...] DATE/TIME OF EXAM: 08/21/2022 3:59 PM, LOCATION [facility] ?? INDICATION: C73: Thyroid cancer (CMS/HCC) E89.0: [...] injection fo the left shoulder and hip. ND PLANNER documented in this encounter Plan of Treatment Upcoming Encounters Date Type Department Care Team (Late st Contact Info) Description 08/02/2024 2:20 PM DEMAND PLANNER Appointment [facility] [address] [place] [phone] 08/02/2024 3:00 PM DEMAND PLANNER Office Visit [facility] - Hematology/Oncology [address] [place] [phone] Remi Beckett MD [address] [place] [phone] 08/18/2024 1:45 PM DEMAND PLANNER Office Visit [facility] - ENT [address] [place] [phone] Neri Delgado MD [address] [place] [phone] 08/30/2024 2:20 PM DEMAND PLANNER Appointment [facility] [address] [place] [phone] documented as of this encounter Results * PTT [facility] (09/14/2022 3:13 PM CDT) APTT 27.8 23.0 - 38.4 Seconds 09/14/2022 4:22 PM CDT [facility] Comment:Suggested therapeuti c range for full dose I.V. unfractionated heparin therapy for venous thromboembolism is 71 to 109 seconds. Blood BLOOD SPECIMEN / Unknown Lab Venipuncture / Unknown 09/14/2022 3:13 PM CDT 09/14/2022 4:00 PM CDT Coy Gómez MD LAB - COAGULATION OR DERABLES Performing Organization Address City/[facility]/ZIP Co de Phone Number [place] [id number] [place] [address], [place] [phone] * PT-INR [facility] (09/14/2022 3:13 PM CDT) PT 12.8 12.1 - 14.8 Seconds 09/14/2022 4:21 PM CDT [facility] INR 1.0 See Comment 09/14/2022 4:21 PM CDT [facility] Comment:The suggested therap eutic range for standard coumadin (warfarin) therapy is an INR of 2.0-3.0. For high-risk patients (Mechanical Mitral Valve Prosthesis, etc.), the suggested prophylactic therapeutic range is an INR of 2.5-3.5. Blood BLOOD SPECIMEN / Unknown Lab Venipuncture / Unknown 09/14/2022 3:13 PM CDT 09/14/2022 4:00 PM CDT Coy Gómez MD LAB - COAGULATION OR DERABLES Performing Organization Address [facility]/ZIP Co de Phone Number [facility] [address] [place] [address], [place] [phone] * (ABNORMAL) CBC WITH DIFFERENTIAL (09/14/2022 3:13 PM CDT) WBC 6.7 3.5 - 10.5 10? 3 /uL 09/14/2022 4:11 PM CDT [facility] RBC 4.31 3.80 - 5.20 10? 6 /uL 09/14/2022 4:11 PM CDT [facility] Hemoglobin 13.1 12.0 - 15.6 g/dL 09/14/2022 4:11 PM CDT [facility] Hematocrit 39.2 35.0 - 45.0 % 09/14/2022 4:11 PM CDT [facility] MCV 91.0 80.7 - 98.3 fL 09/14/2022 4:11 PM CDT [facility] MCH 30.4 26.7 - 34.0 pg 09/14/2022 4:11 PM CDT [facility] MCHC 33.4 30.8 - 35.9 g/dL 09/14/2022 4:11 PM [facility] RDW-SD 42.2 36.0 - 50.0 fL 09/14/2022 4:11 PM [facility] RDW-CV 12.8 11.2 - 14.8 % 09/14/2022 4:11 PM [facility] Platelet Count 256 150 - 400 10? 3 /uL 09/14/2022 4:11 PM [facility] MPV 9.7 9.4 - 12.9 fL 09/14/2022 4:11 PM [facility] nRBC Absolute 0.00 0 10? 3 /uL 09/14/2022 4:11 PM [facility] nRBC Auto 0.0 0 /100 WBC 09/14/2022 4:11 PM [facility] Neutrophils % 61.2 35.0 - 70.0 % 09/14/2022 4:11 PM [facility] Lymphocytes % 26.3 20.0 - 43.0 % 09/14/2022 4:11 PM [facility] Monocytes % 9.9 5.0 - 13.0 % 09/14/2022 4:11 PM [facility] Eosinophils % 0.9 0.0 - 6.0 % 09/14/2022 4:11 PM [facility] Basophil % 1.4 0.0 - 2.0 % 09/14/2022 4:11 PM [facility] Neutrophils Absolute 4.08 1.60 - 7.00 10? 3 /uL 09/14/2022 4:11 PM [facility] Lymphocyte Absolute 1.75 1.10 - 3.90 10? 3 /uL 09/14/2022 4:11 PM [facility] Monocytes Absolute 0.66 0.26 - 1.07 10? 3 /uL 09/14/2022 4:11 PM [facility] Eosinophils Absolute 0.06 0.00 - 0.47 10? 3 /uL 09/14/2022 4:11 PM [facility] Basophils Absolute 0.09(H) 0.00 - 0.08 10? 3 /uL 09/14/2022 4:11 PM CDT [facility] Immature Granulocytes % 0.3 0.0 - 1.0 % 09/14/2022 4:11 PM [facility] Immature Granulocytes Absolute 0.02 09/14/2022 4:11 PM [facility] Blood BLOOD SPECIMEN / Unknown Lab Venipuncture / Unknown 09/14/2022 3:13 PM CDT 09/14/2022 4:00 PM CDT Coy Gómez MD LAB - HEMATOLOGY ORD ERABLES [facility] [address] [place] [address], [place] [phone] * (ABNORMAL) BASIC METABOLIC PANEL (CALCIUM TOTAL) (09/14/2022 3:13 PM CDT) BUN 12 7 - 26 mg/dL 09/14/2022 4:25 PM [facility] Creatinine 0.93 0.56 - 0.96 mg/dL 09/14/2022 4:25 PM [facility] Sodium 140 136 - 145 mmol/L 09/14/2022 4:25 PM [facility] Potassium 3.9 3.5 - 4.5 mmol/L 09/14/2022 4:25 PM [facility] Chloride 103 98 - 107 mmol/L 09/14/2022 4:25 PM [facility] CO2 27 22 - 29 mmol/L 09/14/2022 4:25 PM [facility] Glucose 98 70 - 115 mg/dL 09/14/2022 4:25 PM [facility] Calcium 9.0 8.4 - 10.2 mg/dL 09/14/2022 4:25 PM [facility] Anion Gap 14 8 - 18 09/14/2022 4:25 PM [facility] BUN/Creatinine Ratio 13 7 - 23 09/14/2022 4:25 PM [facility] Osmolality Calculated 290 270 - 300 mOsm/kg 09/14/2022 4:25 PM [facility] eGFR by CKD-EPI 69(L) >=90 mL/min/1.7 3 m2 09/14/2022 4:25 PM CDT [facility] Blood BLOOD SPECIMEN / Unknown Lab Venipuncture / Unknown 09/14/2022 3:13 PM CDT 09/14/2022 4:00 PM CDT Coy Gómez MD LAB - CHEMISTRY [facility] Organization Address City/State/ZIP Co de Phone Number [facility] [address] [place] [address], [place] [phone] * XR CHEST 2VW (09/14/2022 3:08 PM CDT) Anatomical Region Laterality Modality Chest Radiographic Ewa ging 09/14/2022 3:09 PM CDT Narrative 09/14/2022 3:54 PM CDT PROCEDURE: ??XR CHEST 2VW, DATE/TIME OF EXAM: ??09/14/2022 3:09 PM, LOCATION [facility] INDICATION: Z01.818: Pre-op testing ADDITIONAL CLINICAL INFORMATION: COMPARISON: No prior study is available for comparison. FINDINGS/IMPRESSION: Calcified granuloma of right upper lung field is seen. There is no focal consolidation, pleural effusion, or pneumothorax. The cardiomediastinal silhouette is normal. The visible bony thorax is intact. > Dictated by Wayne Carbajal MD (vice president of sales). I, Zi Vee MD have personally reviewed and interpreted this examination/study. > Interpreting Provider: Zi Vee MD on 09/14/2022 3:54 PM Procedure Note Zi Vee MD - 09/14/2022 PROCEDURE: XR CHEST 2VW, DATE/TIME OF EXAM: 09/14/2022 3:09 PM, LOCATION [facility] INDICATION: Z01.818: Pre-op testing ADDITIONAL CLINICAL INFORMATION: COMPARISON: No prior study is available for comparison. FINDINGS/IMPRESSION: Calcified granuloma of right upper lung field is seen. There is no focal consolidation, pleural effusion, or pneumothorax. The cardiomediastinal silhouette is normal. The visible bony thorax is intact. > Dictated by Wayne Carbajal MD (vice president of sales). I, Zi Vee MD have personally reviewed and interpreted this examination/study. > Interpreting Provider: Zi Vee MD on 33:54 PM Coy Gómez MD DIAGNOSTIC IMAGING O RDERABLES * EKG 12-LEAD (09/14/2022 1:58 PM CDT) Ventricular Rate 87 BPM [facility] Atrial Rate 87 BPM [facility] P-R Interval 118 ms [facility] QRS Duration ms 80 ms [facility] Q-T Interval ms 376 ms [facility] QTC Calculation (Bezet) 452 ms [facility] Calculated P Strawberry 52 degrees [facility] Calculated R [place]raw[place] 39 degrees [facility] Calculated T Strawberry 56 degrees [facility] Interpretation EKG NORMAL SINUS RHYTHM NONSPECIFIC ST ABNORMALITY ABNORMAL ECG NO PREVIOUS ECGS AVAILABLE Confirmed by Lulu ROMERO, Hermelinda ([id number]) on 09/14/2022 11:29:48 PM [facility] MUSE 09/14/2022 1:58 PM CDT 09/14/2022 11:29 PM CDT Coy Gómez MD ECG ORDERABLES [facility] M[facility] documented in this encounter Visit Diagnoses Diagnosis Pre-op testing- Primary Preoperative examination, unspecified Pre-op testing Preoperative examination, unspecified documented in this encounter Care Teams Human Services Worker Relationship Specialty Start Date End Date Taniya Grimes MD [address] DIV OF [facility] [place] [phone] PCP - General 07/15/22 10/06/22 Adriana Adams DO [address] [place] [phone] Resident - PCP Internal Medicine 04/06/22 01/12/23 documented as of this encounter
--- OUTSIDE RECORDS SUMMARY | 2024-07-26 08:33 | XMS_ITS | Encounter Summary ---
Author Organization [facility] Address [address] [facility] [place] [address] Care Team Providers Care Residential Sales Representative Name Role Phone Adriana Adams DO Unavailable Taniya Grimes MD Primary Care Provider Reason for Visit * Reason Onset Date Comments Referral 08/26/2022 Encounter Details Date Type Department Care Team (Late Contact Info) Description 08/26/[address] [address] Haleigh Hurt, [employer] senior officer Social History Tobacco Use Types Packs/Day Years [...] Haleigh Hurt RN - 08/26/2022 1:54 PM COUNSELLORS Referral received from Dr. Bustamante for this patient to be seen by Radiation Medicine. left with patient to set up appointment. Contact information left. SELLORS documented in this encounter Plan of Treatment Upcoming Encounters Date Type Department Care Team (Late st Contact Info) Description 08/02/2024 2:20 PM COUNSELLORS Appointment [facility] [address] [place] [phone] 08/02/2024 3:00 PM COUNSELLORS Office Visit [facility] - Hematology/Oncology [address] [place] [phone] Remi Beckett MD [address] [place] [phone] 08/18/2024 1:45 PM COUNSELLORS Office Visit [facility] - ENT [address] [place] [phone] Neri Delgado MD [address] [place] [address] 08/30/2024 2:20 PM COUNSELLORS Appointment [facility] [address] [place] [phone] documented as of this encounter Visit Diagnoses Not on filedocumented in this encounter Care Teams Residential Sales Representative Relationship Specialty Start Date End Date Taniya Grimes MD [address] [place] [address] [address] [place] [phone] PCP - General 07/15/22 10/06/22 Adriana Adams DO [address] [place] [phone] Resident - PCP Internal Medicine 04/06/22 01/12/23 documented as of this encounter
--- OUTSIDE RECORDS SUMMARY | 2024-07-26 08:33 | XMS_ITS | Encounter Summary ---
Author Organization [facility] Health Address [address] [facility] [place] [address] Care Team Providers Care Sporting Goods Sales Associate Name Role Phone Adriana Adams DO Unavailable Taniya Grimes MD Primary Care Provider [phone] Encounter Details Date Type Department Care Team (Latest Contact Info) Description 08/21/2022 2:44 PM SPACE STUDIES FACULTY MEMBER - 08/21/2022 3:09 PM [facility] Hospital Encounter [facility] OP DRAW STATION [address] [place] [address] [phone] Discharge Disposition: Home or Self Care Social [...] A DAY 60 capsule 11 02/22/2022 05/28/2023 [id number]-[id number]-PQKE PO Take by mouth once daily 06/13/2023 [...] fluticasone propionate (FLONASE) 50 MCG/ACT nasal spray [place] 2 (two) sprays into each nostril once daily 48 g 10/20/2021 11/25/2022 gabapentin (Neurontin) 300 MG capsuleIndications:Prima ry osteoarthritis of left hip Take 1 (one) capsule by mouth 3 times daily 90 capsule 5 04/06/2022 11/19/2022 [id number]-[id number]-UWM-C-H YAL PO Take 1 tablet by mouth [...] st Contact Info) Description 08/02/2024 2:20 PM SPACE STUDIES FACULTY MEMBER Appointment [facility] [address] [place] [address] 08/02/2024 3:00 PM SPACE STUDIES FACULTY MEMBER Office Visit [facility] - Hematology/Oncology [address] [place] [address] [phone] Remi Beck[place] MD [address] [place] [address] [phone] 08/18/2024 1:45 PM SPACE STUDIES FACULTY MEMBER Office Visit [facility] - ENT [address] [place] [address] [phone] Neri Delgado MD [address] [place] [address] 08/30/2024 2:20 PM SPACE STUDIES FACULTY MEMBER Appointment [facility] [address] [place] [address] documented as of this encounter Procedures Procedure Name Priority Date/Time Associated Diagnosis Comments THYROGLOBULIN REFLEX PROFILE Routine 08/21/2022 2:58 PM SPACE STUDIES FACULTY MEMBER Postoperative hypothyroidism Thyroid cancer (HCC) THYROGLOBULIN BY ANTONIETA RFLXED Routine 08/21/2022 2:58 PM SPACE STUDIES FACULTY MEMBER Postoperative hypothyroidism Thyroid cancer (HCC) documented in this encounter Results * THYROGLOBULIN BY ANTONIETA RFLXED (08/21/2022 2:58 PM SPACE STUDIES FACULTY MEMBER) Thyroglobulin by ANTONIETA TNP ng/mL 08/26/2022 5:08 PM SPACE STUDIES FACULTY MEMBER [facility] ([facility]) Comment: Test not performed. Insufficient specimen to perform or complete analysis. Contacted: Liliane Graham 02-22-23 According to the National Academy of Clinical Biochemistry, the reference interval for Thyroglobulin (TG) should be related to euthyroid patients and not for patients who underwent thyroidectomy. TG reference intervals for these patients depend on the residual mass of the thyroid tissue left after surgery. Establishing a post-operative baseline is recommended. The assay limit of quantitation is 0.1 ng/mL Thyroglobulin measured by Lisbet [place] Immunometric Assay Blood BLOOD SPECIMEN / Unknown Lab Venipuncture / Unknown 08/21/2022 2:58 PM SPACE STUDIES FACULTY MEMBER 08/21/2022 3:38 PM SPACE STUDIES FACULTY MEMBER Narrative [facility] ([facility]) - 08/26/2022 5:08 PM SPACE STUDIES FACULTY MEMBER Performed at: ??01 - [address] ??[id number] Him Coder: Oral Melendez PhD, Phone: ??[phone] Yosi Bustamante MD LAB - CHEMISTRY ORD ERABLES Performing Organization Address [facility] Phone Number [facility] ([facility]) [address] [place] [address], [facility] * THYROGLOBULIN REFLEX PROFILE (08/21/2022 2:58 PM SPACE STUDIES FACULTY MEMBER) Thyroglobulin Antibody <1.0 0.0 - 0.9 IU/mL 08/26/2022 5:08 PM SPACE STUDIES FACULTY MEMBER [facility] ([facility]) Comment:Thyroglobulin Antibo dy measured by Lisbet Marcos Methodology Blood BLOOD SPECIMEN / Unknown Lab Venipuncture / Unknown 08/21/2022 2:58 PM SPACE STUDIES FACULTY MEMBER 08/21/2022 3:38 PM SPACE STUDIES FACULTY MEMBER Narrative [facility] ([facility]) - 08/26/2022 5:08 PM SPACE STUDIES FACULTY MEMBER Performed at: ??01 - [facility] ??[id number] Him Coder: Oral Melendez PhD, Phone: ??[phone] Yosi Bustamante MD LAB - CHEMISTRY ORD ERABLES Performing Organization Address City/[facility] Co de Phone Number [facility] ([facility]) [address] [place] [phone], [facility] documented in this encounter Visit Diagnoses Diagnosis Postoperative hypothyroidism Postsurgical hypothyroidism Thyroid cancer (HCC) Malignant neoplasm of thyroid gland documented in this encounter Care Teams Sporting Goods Sales Associate Relationship Specialty Start Date End Date Taniya Grimes MD [address] [place] [address] PCP - General 07/15/22 10/06/22 Adriana Adams DO [address] [place] [address] Resident - PCP Internal Medicine 04/06/22 01/12/23 documented as of this encounter
--- OUTSIDE RECORDS SUMMARY | 2024-07-26 08:33 | XMS_ITS | Encounter Summary ---
Author Organization [facility] Health Address [address] [facility] [place] [address] Care Team Providers Care Chip Drier Name Role Phone Adriana Adams DO Unavailable Taniya Grimes MD Primary Care Provider Encounter Details Date Type Department Care Team (Late st Contact Info) Description 08/20/2022 Orders Only [facility] - Orthopedics [facility] [facility], [place] [address] Mary Beth Lauren MD [address] [place] [address] [address] [place] [address] Pre-op testing Social History Tobacco [...] st Contact Info) Description 08/02/2024 2:20 PM COMEDIAN Appointment [facility] [address] [place] [phone] 08/02/2024 3:00 PM COMEDIAN Office Visit [facility] - Hematology/Oncology [address] [place] [phone] Remi [place] MD [address] [place] [phone] 08/18/2024 1:45 PM COMEDIAN Office Visit [facility] - ENT [address] [place] [phone] Neri Delgado MD [address] [place] [address] 08/30/2024 2:20 PM COMEDIAN Appointment [facility] [address] [place] [phone] documented as of this encounter Visit Diagnoses Diagnosis Pre-op testing- Primary Preoperative examination, unspecified documented in this encounter Care Teams Chip Drier Relationship Specialty Start Date End Date Taniya Grimes MD [address] [place] [address] [address] DIV [place] [address] PCP - General 07/15/22 10/06/22 Adriana Adams DO [facility] [place] [phone] Resident - PCP Internal Medicine 04/06/22 01/12/23 documented as of this encounter
--- OUTSIDE RECORDS SUMMARY | 2024-07-26 08:33 | XMS_ITS | Encounter Summary ---
Author Organization [facility] Address [address] [facility] [place] [address] Care Team Providers Care Director Supply Chain Name Role Phone Adriana Adams DO Unavailable Taniya Grimes MD Primary Care Provider Reason for Referral * Radiology Services (Routine) - Closed Specialty Diagnoses / Procedures Referred By Contac t Referred To Contact Nuclear Medicine Diagnoses Postoperative hypothyroidism Thyroid cancer (HCC) Hypocalcemia Other hypoparathyroidism (HCC) Procedures NM TUMOR LOCAL SPECT CT Yosi Bustamante MD [address] [place] [address] [address] [place] [address] [facility] Nuclear Medicine [address] [place] [phone] Referral ID Status Reason Start Date Expiration Date Visits Re quested Visits Authorized [id number] Closed 08/19/2022 08/19/2023 1 1 Y COOKER HELPER Reason for Visit * Radiology Services (Routine) - Closed Specialty Diagnoses / Procedures Referred By Contac t Referred To Contact Nuclear Medicine Diagnoses Postoperative hypothyroidism Thyroid cancer (HCC) Hypocalcemia Other hypoparathyroidism (HCC) Procedures NM THYROID WHOLE BODY SCAN Yosi Bustamante MD [address] [facility] [address] [place] [address] Referral ID Status Reason Start Date Expiration Date Visits Re quested Visits Authorized [id number] Closed 08/24/2022 08/24/2023 1 1 Encounter Details Date Type Department Care Team (Latest Contact Info) Description 08/19/2022 1:26 PM CANDY COOKER HELPER - 08/19/2022 11:59 PM [facility] Hospital Encounter [facility] NUCLEAR MEDICINE [address] [place] [address] Yosi Bustamante MD [address] [facility] [address] [facility] [place] [address] Discharge Disposition: Home or Self Care Social [...] A DAY 60 capsule 11 02/22/2022 05/28/2023 [id number]-XOUP PO Take by mouth once daily 06/13/2023 [...] fluticasone propionate (FLONASE) 50 MCG/ACT nasal spray [place] 2 (two) sprays into each nostril once daily 48 g 10/20/2021 11/25/2022 gabapentin (Neurontin) 300 MG capsuleIndications:Prima ry osteoarthritis of left hip Take 1 (one) capsule by mouth 3 times daily 90 capsule 5 04/06/2022 11/19/2022 [id number]-[id number]-XMW-C-H YAL PO Take 1 tablet by mouth [...] six day supply. 21 tablet 04/10/2022 09/14/2022 [facility] Natural Products (NEURIVA PO) Take 2 capsules [...] Contact Info) Description 08/02/2024 2:20 PM CANDY COOKER HELPER Appointment [facility] [address] [place] [address] 08/02/2024 3:00 PM CANDY COOKER HELPER Office Visit [facility] - Hematology/Oncology [address] [place] [phone] Remi [place] MD [address] [place] [phone] 08/18/2024 1:45 PM CANDY COOKER HELPER Office Visit [facility] - ENT [address] [place] [address] Neri Delgado MD [address] [place] [address] 08/30/2024 2:20 PM CANDY COOKER HELPER Appointment [facility] [address] [place] [address] documented as of this encounter Procedures Procedure Name Priority Date/Time Associated Diagnosis Comments NM THYROID WHOLE BODY SCAN Routine 08/19/2022 3:24 PM CANDY COOKER HELPER Postoperative hypothyroidism Thyroid cancer (HCC) Hypocalcemia Other hypoparathyroidism (CMS/HCC) NM TUMOR LOCAL SPECT CT Routine 08/19/2022 3:24 PM CANDY COOKER HELPER Postoperative hypothyroidism Thyroid cancer (HCC) Hypocalcemia Other hypoparathyroidism (CMS/HCC) documented in this encounter Results * NM TUMOR LOCAL SPECT CT (08/19/2022 3:24 PM CANDY COOKER HELPER) Anatomical Region Laterality Modality Nuclear Medicine 08/19/2022 3:55 PM CANDY COOKER HELPER Impressions 08/19/2022 4:38 PM CANDY COOKER HELPER Impression: Focal uptake in anteriorly in the left aspect of the mid cervical spine, suggestive of metastatic disease. Further evaluation with MRI cervical spine is recommended to better evaluate the site of the recurrence and the proximity to the spinal cord. Results discussed with Dr. Bustamante by Dr. Sy on 08/19/2022 at 3:35 PM. > Dictated by Donald Mayer MD (Mate Chief) 08/19/2022 4:15 PM Tiesha Mckeon DO have personally reviewed and interpreted this examination/study. > Interpreting Provider: Tiesha Sy DO on 08/19/2022 4:38 PM Narrative 08/19/2022 4:38 PM CANDY COOKER HELPER PROCEDURE: ??NM THYROID WHOLE BODY SCAN, NM TUMOR LOCAL SPECT CT, DATE/TIME OF EXAM: ??08/19/2022 3:24 PM, LOCATION ??[facility] INDICATION: E89.0: Postoperative hypothyroidism C73: Thyroid [...] CT,DATE/TIME OF EXAM: 08/19/2022 3:24 PM, LOCATION [facility] INDICATION: E89.0: Postoperative [...] PM. > Dictated by Donald Mayer MD (Mate Chief) 08/19/2022 4:15 PM I, Tiesha Sy DO [...] (HCC) documented in this encounter Care Teams Director Supply Chain Relationship Specialty Start Date End Date Taniya Grimes MD [address] [place] [phone] PCP - General 07/15/22 10/06/22 Adriana Adams DO [address] [place] [address] Resident - PCP Internal Medicine 04/06/22 01/12/23 documented as of this encounter
--- OUTSIDE RECORDS SUMMARY | 2024-07-26 08:33 | XMS_ITS | Encounter Summary ---
Author Organization [facility] Health Address [address] [facility] [place] [address] Care Team Providers Care Fish Hatchery Superintendent Name Role Phone Adriana Adams DO Unavailable Taniya Grimes MD Primary Care Provider [phone] Reason for Visit * Reason Comments Thyroid Problem 6m hypothyroidism Encounter Details Date Type Department Care Team (Late st Contact Info) Description 08/21/2022 1:30 PM ONLINE PROJECT MANAGER Office Visit [facility] [address] [place] [phone] Neri Delgado MD [address] [place] [phone] 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 [...] Comments Blood Pressure 144/92 08/21/2022 1:38 PM ONLINE PROJECT MANAGER Pulse 85 08/21/2022 1:38 PM ONLINE PROJECT MANAGER Temperature - - Respiratory Rate - - Oxygen Saturation - - Inhaled Oxygen Concentration - - Weight 71.9 kg (158 lb 9.6 oz) 08/21/2022 1:38 P M ONLINE PROJECT MANAGER Height 157.5 cm (5' 2) 08/21/2022 1:38 PM ONLINE PROJECT MANAGER Body Mass Index 29.01 08/21/2022 1:38 PM ONLINE PROJECT MANAGER documented in this encounter Functional Status [...] Priscilla Bernstein MA - 08/21/2022 11:34 AM ONLINE PROJECT MANAGER Thank you for visiting [facility] Otolaryngology - Head & Neck Surgery. [...] an appointment, please call our office at [phone] Wednesday through Wednesday from 8:30 am to4:30 pm. You can also request a routine appointment through your [email or web address] account. Prescription Refills Contact your pharmacy to [...] the medical exchange at and ask the photocopy operator to page the ENT physician recreation program coordinator. *Caller ID blocking service will need to be turned off for your call to be returned. We also specialize in Hearing Aids, Allergy testing, swallowing disorders, voice problems, cancer diagnosis, and so much more. Visit our website at [email or web address] for information about our practice and an interactive health encyclopedia. NE PROJECT MANAGER documented in this encounter Progress Notes * Fabian Flores MD - 08/21/2022 1:55 PM CST CC: Chief Complaint Patient presents with ??? Thyroid Problem 6m hypothyroidism Diagnosis: Site: Thyroid Histology: PTC Stage: [id number] AJCC IVb Details: Positive margins, LVI +, [...] CAPSULE BY MOUTH TWICE A DAY ??? [id number]-[id number]-ODOO PO Take by mouth once daily ??? [...] fluticasone propionate (FLONASE) 50 MCG/ACT nasal spray [place] 2 (two) sprays into each nostril once daily ??? gabapentin (Neurontin) 300 MG capsule Take 1 (one) capsule by mouth 3 times daily ??? [id number]-RBJOLLMTY-LFT-C-HYAL PO Take 1 tablet by mouth 3 [...] Procedure Note Endoscopy Type: Laryngoscopy without stroboscopy 62044 Endoscope: Flexible 4mm Scope Anesthesia: Lidocaine 2% [...] Head and Neck Surgery 08/21/22 2:37 PM NE PROJECT MANAGER Associated attestation - Neri Delgado MD - 08/22/2022 10:25 AM ONLINE PROJECT MANAGER Attending Physician Supervisory Note I personally [...] 2:38 PM CSTAssociated Order(s): PROC ENDOSCOPY-LARYNX Procedure(s): CT LARYNGOSCOPY,FLEX FIBER,DIAGNOSTIC Pre-Procedure Diagnose(s): Hoarseness Procedure Note Endoscopy Type: Laryngoscopy without stroboscopy 45138 Endoscope: Flexible 4mm Scope Anesthesia: Lidocaine 2% [...] present for the entirety of the procedure. NE PROJECT MANAGER documented in this encounter Plan of Treatment Upcoming Encounters Date Type Department Care Team (Late st Contact Info) Description 08/02/2024 2:20 PM ONLINE PROJECT MANAGER Appointment [facility] [address] [place] [address] 08/02/2024 3:00 PM ONLINE PROJECT MANAGER Office Visit [facility] - Hematology/Oncology [address] [place] [phone] Remi Beck[place] MD [address] [place] [phone] 08/18/2024 1:45 PM ONLINE PROJECT MANAGER Office Visit [facility] - ENT [address] [place] [phone] Neri Delgado MD [address] [place] [address] 08/30/2024 2:20 PM ONLINE PROJECT MANAGER Appointment [facility] [address] [place] [address] documented as of this encounter Procedures Procedure Name Priority Date/Time Associated Diagnosis Comments CT LARYNGOSCOPY,FLEX FIBER,DIAGNOSTIC Routine 08/21/2022 2:38 PM ONLINE PROJECT MANAGER Hoarseness documented in this encounter Results * CT LARYNGOSCOPY,FLEX FIBER,DIAGNOSTIC (08/21/2022 2:38 PM ONLINE PROJECT MANAGER) Narrative Neri Delgado MD - 08/21/2022 2:38 PM ONLINE PROJECT MANAGER Fabian Flores MD ? 08/22/2022 10:25 AM Procedure Note Endoscopy Type: ??Laryngoscopy without stroboscopy 71641 Endoscope: Flexible 4mm Scope Anesthesia: Lidocaine 2% [...] gland documented in this encounter Care Teams Fish Hatchery Superintendent Relationship Specialty Start Date End Date Taniya Grimes MD [address] [place] [address] PCP - General 07/15/22 10/06/22 Adriana Adams DO [address] [place] [address] Resident - PCP Internal Medicine 04/06/22 01/12/23 documented as of this encounter
--- OUTSIDE RECORDS SUMMARY | 2024-07-26 08:33 | XMS_ITS | Encounter Summary ---
Author Organization [facility] Address [address] [facility] [place] [place] [address] Care Team Providers Care Middle School Sports Coach Name Role Phone Adriana Adams DO Unavailable Taniya Grimes MD Primary Care Provider Reason for Visit * Reason Onset Date Comments Appointment 07/24/2022 Encounter Details Date Type Department Care Team (Late st Contact Info) Description 07/24/2022 Telephone Transitional Care at [address] [phone] Milly Jensen MA Appointment Social [...] Coronavirus/COVID-19? No / Unsure 06/25/2022 10:01 AM CHIROPRACTIC NEUROLOGIST documented as of this encounter Functional Status [...] Milly Jensen MA - 07/24/2022 1:14 PM CHIROPRACTIC NEUROLOGIST Received call from patient that they needed to cancel their [facility]GE appointment on 07/24/22 due to not feeling well. Patient states she will be following up with her PCP. OPRACTIC NEUROLOGIST documented in this encounter Plan of Treatment Upcoming Encounters Date Type Department Care Team (Late st Contact Info) Description 08/02/2024 2:20 PM CHIROPRACTIC NEUROLOGIST Appointment [facility] [address] [place] [phone] 08/02/2024 3:00 PM CHIROPRACTIC NEUROLOGIST Office Visit [facility] - Hematology/Oncology [address] [place] [phone] Remi [place] MD [address] [place] [phone] 08/18/2024 1:45 PM CHIROPRACTIC NEUROLOGIST Office Visit [facility] - ENT [address] [place] [phone] Neri Delgado MD [address] [place] [address] 08/30/2024 2:20 PM CHIROPRACTIC NEUROLOGIST Appointment [facility] [address] [place] [address] documented as of this encounter Visit Diagnoses Not on filedocumented in this encounter Care Teams Middle School Sports Coach Relationship Specialty Start Date End Date Taniya Grimes MD [address] [place] [address] DIV OF [facility] [place] [phone] PCP - General 07/15/22 10/06/22 Adriana Adams DO [address] [place] [phone] Resident - PCP Internal Medicine 04/06/22 01/12/23 documented as of this encounter
--- OUTSIDE RECORDS SUMMARY | 2024-07-26 08:33 | XMS_ITS | Encounter Summary ---
Author Organization [facility] Health Address [address] [facility] [place] [address] Care Team Providers Care Clerical Associate Name Role Phone Adriana Adasm DO Unavailable Taniya Grimes MD Primary Care Provider Encounter Details Date Type Department Care Team (Latest Contact Info) Description 08/07/2022 12:50 PM HEALTH SCIENCES DEAN - 08/07/2022 11:59 PM [facility] Hospital Encounter [facility] LAB OP DRAW STATION [address] [place] [phone] Discharge Disposition: Home or Self Care Social [...] A DAY 60 capsule 11 02/22/2022 05/28/2023 [id number] PO Take by mouth once daily 06/13/2023 [...] fluticasone propionate (FLONASE) 50 MCG/ACT nasal spray [place] 2 (two) sprays into each nostril once daily 48 g 10/20/2021 11/25/2022 gabapentin (Neurontin) 300 MG capsuleIndications:Nicole favio osteoarthritis of left hip Take 1 (one) capsule by mouth 3 times daily 90 capsule 5 04/06/2022 11/19/2022 [id number]-[id number]-C -HYAL PO Take 1 tablet by mouth [...] Contact Info) Description 08/02/2024 2:20 PM HEALTH SCIENCES DEAN Appointment [facility] [address] [place] [address] 08/02/2024 3:00 PM HEALTH SCIENCES DEAN Office Visit [facility] - Hematology/Oncology [address] [place] [phone] Remi Beckett MD [address] [place] [phone] 08/18/2024 1:45 PM HEALTH SCIENCES DEAN Office Visit [facility] - ENT [address] [place] [phone] Neri Delgado MD [address] [place] [address] 08/30/2024 2:20 PM HEALTH SCIENCES DEAN Appointment [facility] [address] [place] [address] documented as of this encounter Procedures Procedure Name Priority Date/Time Associated Diagnosis Comments THYROGLOBULIN REFLEX PROFILE Routine 08/07/2022 12:59 PM HEALTH SCIENCES DEAN Postoperative hypothyroidism Thyroid cancer (HCC) Hypocalcemia Other hypoparathyroidism (CMS/HCC) THYROGLOBULIN BY ANTONIETA RFLXED Routine 08/07/2022 12:59 PM HEALTH SCIENCES DEAN Postoperative hypothyroidism Thyroid cancer (HCC) Hypocalcemia Other hypoparathyroidism (CMS/HCC) TSH REFLEX FREE T4 Routine 08/07/2022 12 :58 PM HEALTH SCIENCES DEAN Thyroid cancer (HCC) T4 FREE Routine 08/07/2022 12:58 PM HEALTH SCIENCES DEAN Thyroid cancer (HCC) documented in this encounter Results * (ABNORMAL) THYROGLOBULIN BY ANTONIETA RFLXED (08/07/2022 12:59 PM HEALTH SCIENCES DEAN) Thyroglobulin by ANTONIETA 383.0(H) 1.5 - 38.5 ng/mL 08/14/2022 5:08 PM HEALTH SCIENCES DEAN [facility] ([facility]) Comment: Results confirmed on dilution. According to [...] Lab Venipuncture / Unknown 08/07/2022 12:59 PM HEALTH SCIENCES DEAN 08/07/2022 2:07 PM HEALTH SCIENCES DEAN Narrative [facility] ([facility]) - 08/14/2022 5:08 PM HEALTH SCIENCES DEAN Performed at: ??01 - [facility] [address] [place], [place] ??[id number] Screen Operator: Oral Melendez PhD, Phone: ??[phone] Yosi Bustamante MD LAB - CHEMISTRY ORD ERABLES [facility] ([facility]) [address] [place] [address], [facility] * THYROGLOBULIN REFLEX PROFILE (08/07/2022 12:59 PM HEALTH SCIENCES DEAN) Thyroglobulin Antibody <1.0 0.0 - 0.9 IU/mL 08/14/2022 5:08 PM HEALTH SCIENCES DEAN [facility] ([facility]) Comment:Thyroglobulin Antibo dy measured by Lisbet Marcos Methodology Blood BLOOD SPECIMEN / Unknown Lab Venipuncture / Unknown 08/07/2022 12:59 PM HEALTH SCIENCES DEAN 08/07/2022 2:07 PM HEALTH SCIENCES DEAN Narrative [facility] ([facility]) - 08/14/2022 5:08 PM HEALTH SCIENCES DEAN Performed at: ??01 - [facility] [address] [facility], [place], [place] ??[id number] Screen Operator: Oral Melendez PhD, Phone: ??[phone] Yosi Bustamante MD LAB - CHEMISTRY ORD ERABLES Performing Organization Address City/[facility]/ZIP Co de Phone Number [facility] ([facility]) [address] [place] [address] * (ABNORMAL) T4 FREE (08/07/2022 12:58 PM HEALTH SCIENCES DEAN) T4 Free <0.4(L) 0.7 - 1.5 ng/dL 08/07/2022 4:00 PM HEALTH SCIENCES DEAN [facility] LABORATORY [facility] Blood BLOOD SPECIMEN / Unknown Lab Venipuncture / Unknown 08/07/2022 12:58 PM HEALTH SCIENCES DEAN 08/07/2022 2:10 PM HEALTH SCIENCES DEAN Yosi Bustamante MD LAB - CHEMISTRY ORD ERABLES Performing Organization Address City/[facility]/ZIP Co de Phone Number [address] [address], [facility] [phone] * (ABNORMAL) TSH REFLEX FREE T4 (08/07/2022 12:58 PM HEALTH SCIENCES DEAN) TSH 165.839(H) 0.350 - 4.940 uIU/mL 08/07/2022 3:27 PM HEALTH SCIENCES DEAN [facility] Comment:Result obtained by yaa holliday. Blood BLOOD SPECIMEN / Unknown Lab Venipuncture / Unknown 08/07/2022 12:58 PM HEALTH SCIENCES DEAN 08/07/2022 2:10 PM HEALTH SCIENCES DEAN Yosi Bustamante MD LAB - CHEMISTRY ORD ERABLES [facility] [address] [place] [address], [facility] [phone] documented in this encounter Visit Diagnoses Diagnosis Thyroid cancer (HCC)- Primary Malignant neoplasm of thyroid gland Postoperative hypothyroidism Postsurgical hypothyroidism Hypocalcemia Other hypoparathyroidism (HCC) documented in this encounter Care Teams Clerical Associate Relationship Specialty Start Date End Date Taniya Grimes MD [address] OF [facility] [place] [phone] PCP - General 07/15/22 10/06/22 Adriana Adams DO [address] [place] [phone] Resident - PCP Internal Medicine 04/06/22 01/12/23 documented as of this encounter
--- OUTSIDE RECORDS SUMMARY | 2024-07-26 08:33 | XMS_ITS | Encounter Summary ---
Author Organization [facility] Health Address [address] [place] [address] Care Team Providers Care Backfiller Name Role Phone Adriana Adams DO Unavailable [...] Contact Info) Description 08/02/2024 2:20 PM METAL SOLDERER Appointment [facility] [address] [place] [address] 08/02/2024 3:00 PM METAL SOLDERER Office Visit [facility] - Hematology/Oncology [address] [place] [address] Remi Beckett MD [address] [place] [address] 08/18/2024 1:45 PM METAL SOLDERER Office Visit [facility] - ENT [address] [place] [phone] Neri Delgado MD [address] [place] [address] 08/30/2024 2:20 PM METAL SOLDERER Appointment [facility] [address] [place] [address] documented as of this encounter Visit Diagnoses Not on filedocumented in this encounter Care Teams Backfiller Relationship Specialty Start Date End Date Taniya Grimes MD [address] [place] [address] 2L DIV [place] [phone] PCP - General 07/15/22 10/06/22 Adriana Adams DO [address] [place] [phone] Resident - PCP Internal Medicine 04/06/22 01/12/23 documented as of this encounter
--- OUTSIDE RECORDS SUMMARY | 2024-07-26 08:33 | XMS_ITS | Encounter Summary ---
Author Organization [facility] Health Address [address] [facility] [place] [address] Care Team Providers Care Dulite Machine Bluer Name Role Phone Adriana Adams DO Unavailable Taniya Grimes MD Primary Care Provider Reason for Visit * Reason Onset Date Comments ABN Follow-Up 08/25/2022 REVIEWED THE MRI FINDINGS AND WBS FINDINGS INFORMED PATIENT OF REFERRALS TO RADIATION ONCOLOGY AND NEUROSURGERY Encounter Details Date Type Department Care Team (Late st Contact Info) Description 08/25/2022 Telephone [facility] Endocrinology, Diabetes and Metabolism [address] [place] [address], [facility] [place] [address] Yosi Bustamante MD [address] [place] [address] [place] [address] ABN Follow-Up (REVIEWED THE MRI FINDINGS AND [...] Yosi Bustamante MD - 08/25/2022 9:47 AM ELECTRONIC MASKING SYSTEM OPERATOR ----- Message from Mela Snell MD sent at 08/24/2022 3:04 PM ELECTRONIC MASKING SYSTEM OPERATOR ----- Hi Dr. Bustamante, I am reading [...] I can add anything else. Thanks Mela TRONIC MASKING SYSTEM OPERATOR documented in this encounter Plan of Treatment Upcoming Encounters Date Type Department Care Team (Late st Contact Info) Description 08/02/2024 2:20 PM ELECTRONIC MASKING SYSTEM OPERATOR Appointment [facility] [address] [place] [address] 08/02/2024 3:00 PM ELECTRONIC MASKING SYSTEM OPERATOR Office Visit [facility] - Hematology/Oncology [address] [place] [phone] Remi Beckett MD [address] [place] [phone] 08/18/2024 1:45 PM ELECTRONIC MASKING SYSTEM OPERATOR Office Visit [facility] - ENT [address] [place] [phone] Neri Delgado MD [address] [place] [address] 08/30/2024 2:20 PM ELECTRONIC MASKING SYSTEM OPERATOR Appointment [facility] [address] [place] [address] documented as of this encounter Visit Diagnoses Not on filedocumented in this encounter Care Teams Dulite Machine Bluer Relationship Specialty Start Date End Date Taniya Grimes MD [address] [facility] [place] [address] PCP - General 07/15/22 10/06/22 Adriana Adams DO [address] [place] [address] Resident - PCP Internal Medicine 04/06/22 01/12/23 documented as of this encounter
--- OUTSIDE RECORDS SUMMARY | 2024-07-26 08:33 | XMS_ITS | Encounter Summary ---
Author Organization [facility] Health Address [address] [place] [address] Care Team Providers Care Filler Shredder Helper Name Role Phone Adriana Adams DO [...] st Contact Info) Description 08/02/2024 2:20 PM CLASSICS TEACHER Appointment [facility] [address] [place] [address] 08/02/2024 3:00 PM CLASSICS TEACHER Office Visit [facility] Group - Hematology/Oncology [address] [place] [address] Remi Beckett MD [address] [place] [address] 08/18/2024 1:45 PM CLASSICS TEACHER Office Visit [facility] - ENT [address] [place] [phone] Neri Delgado MD [address] [place] [address] 08/30/2024 2:20 PM CLASSICS TEACHER Appointment [facility] [address] [place] [address] documented as of this encounter Visit Diagnoses Not on filedocumented in this encounter Care Teams Filler Shredder Helper Relationship Specialty Start Date End Date Taniya Grimes MD [address] [place] [address] 2L [place] [phone] PCP - General 07/15/22 10/06/22 Adriana Adams DO [address] [place] [phone] Resident - PCP Internal Medicine 04/06/22 01/12/23 documented as of this encounter
--- OUTSIDE RECORDS SUMMARY | 2024-07-26 08:33 | XMS_ITS | Encounter Summary ---
Author Organization [facility] Health Address [address] [place] [address] Care Team Providers Care Engine Repairer Production Name Role Phone Adriana Adams DO Unavailable Taniya Grimes MD Primary Care Provider [phone] Encounter Details Date Type Department Care Team [...] Contact Info) Description 08/02/2024 2:20 PM FOOD AND BEVERAGE ASSISTANT MANAGER Appointment [facility] [address] [place] [address] 08/02/2024 3:00 PM FOOD AND BEVERAGE ASSISTANT MANAGER Office Visit [facility] Group - Hematology/Oncology [address] [place] [address] Remi Beckett MD [address] [place] [address] 08/18/2024 1:45 PM FOOD AND BEVERAGE ASSISTANT MANAGER Office Visit [facility] - ENT [address] [place] [phone] Neri Delgado MD [address] [place] [address] 08/30/2024 2:20 PM FOOD AND BEVERAGE ASSISTANT MANAGER Appointment [facility] [address] [place] [address] documented as of this encounter Visit Diagnoses Not on filedocumented in this encounter Care Teams Engine Repairer Production Relationship Specialty Start Date End Date Taniya Grimes MD [address] [place] [address] 2L [place] [phone] PCP - General 07/15/22 10/06/22 Adriana Adams DO [address] [place] [phone] Resident - PCP Internal Medicine 04/06/22 01/12/23 documented as of this encounter
--- OUTSIDE RECORDS SUMMARY | 2024-07-26 08:33 | XMS_ITS | Encounter Summary ---
Author Organization [facility] Health Address [address] [facility] [place] [address] Care Team Providers Care Qa Consultant Name Role Phone Adriana Adams DO Unavailable Taniya Grimes MD Primary Care Provider Encounter Details Date Type Department Care Team (Latest Contact Info) Description 08/14/2022 2:42 PM ZINC MINER - 08/14/2022 11:59 PM [facility] Hospital Encounter [facility] LAB OP DRAW STATION [address] [place] [phone] Discharge Disposition: Home or Self Care Social [...] A DAY 60 capsule 11 02/22/2022 05/28/2023 [id number] PO Take by mouth once daily 06/13/2023 [...] fluticasone propionate (FLONASE) 50 MCG/ACT nasal spray [place] 2 (two) sprays into each nostril once daily 48 g 10/20/2021 11/25/2022 gabapentin (Neurontin) 300 MG capsuleIndications:Prima ry osteoarthritis of left hip Take 1 (one) capsule by mouth 3 times daily 90 capsule 5 04/06/2022 11/19/2022 [id number]-[id number]-H YAL PO Take 1 tablet by mouth [...] st Contact Info) Description 08/02/2024 2:20 PM ZINC MINER Appointment [facility] [address] [place] [address] 08/02/2024 3:00 PM ZINC MINER Office Visit [facility] Group - Hematology/Oncology [address] [place] [phone] Remi Beckett MD [address] [place] [phone] 08/18/2024 1:45 PM ZINC MINER Office Visit [facility] - ENT [address] [place] [phone] Neri Delgado MD [address] [place] [address] 08/30/2024 2:20 PM ZINC MINER Appointment [facility] [address] [place] [address] documented as of this encounter Procedures Procedure Name Priority Date/Time Associated Diagnosis Comments URINE DRUG SCREEN IMMUNOASSAY Routine 08/14/2022 4:09 PM ZINC MINER Left shoulder pain, unspecified chronicity THYROGLOBULIN REFLEX PROFILE Routine 08/14/2022 3:21 PM ZINC MINER Postoperative hypothyroidism Thyroid cancer (HCC) Hypocalcemia Other hypoparathyroidism (CMS/HCC) THYROGLOBULIN BY ANTONIETA RFLXED Routine 08/14/2022 3:21 PM ZINC MINER Postoperative hypothyroidism Thyroid cancer (HCC) Hypocalcemia Other hypoparathyroidism (CMS/HCC) HIV-1 HIV-2 ANTIBODY + HIV P24 AG PANEL Routine 08/14/2022 3:21 PM ZINC MINER Preventative health care TSH REFLEX FREE T4 Routine 08/14/2022 3: 21 PM ZINC MINER Postoperative hypothyroidism Thyroid cancer (HCC) VITAMIN D 25-HYDROXY Routine 08/14/2022 3:21 PM ZINC MINER Postoperative hypothyroidism Thyroid cancer (HCC) Hypocalcemia Other hypoparathyroidism (CMS/HCC) RENAL FUNCTION PANEL Routine 08/14/2022 3:21 PM ZINC MINER Postoperative hypothyroidism Thyroid cancer (HCC) Hypocalcemia Other hypoparathyroidism (CMS/HCC) T4 FREE Routine 08/14/2022 3:21 PM ZINC MINER Postoperative hypothyroidism Thyroid cancer (HCC) documented in this encounter Results * DRUG SCREEN TOX URINE PANEL (IN HOUSE) (08/14/2022 4:09 PM ZINC MINER) Pathologist [facility] Amphetamines Screen Urine Negative Negative: < 1000 ng/mL 08/14/2022 5:03 PM [facility] Barbiturates Screen Urine Negative Negative: < 200 ng/mL 08/14/2022 5:03 PM [facility] Benzodiazepine Screen Urine Negative Negative: < 200 ng/mL 08/14/2022 5:03 PM [facility] Opiates Urine Negative Negative: < 300 ng/mL 08/14/2022 5:03 PM [facility] Cocaine Metabolites Urine Negative Negative: < 300 ng/mL 08/14/2022 5:03 PM [facility] Phencyclidine Screen Urine Negative Negative: < 25 ng/ml 08/14/2022 5:03 PM [facility] Cannabinoids Screen Urine Negative Negative: <50 ng/mL 08/14/2022 5:03 PM [facility] Methadone Screen Urine Negative Negative: < 300 ng/mL 08/14/2022 5:03 PM [facility] Fentanyl Screen Urine Negative Negative: <1.5 ng/mL 08/14/2022 5:03 PM [facility] Urine URINE / Unknown Collection / Unknown 08/14/2022 4:09 PM [facility] 08/14/2022 4:25 PM [facility] - 08/14/2022 5:03 PM ZINC MINER The Urine Toxicology Screening Panel does not screen for Propoxyphene, Meprobamate, Carisoprodol, Trazodone, gcst-elc-vvzzvgl medications and/or volatiles (Acetone, Isopropanol, Methanol or Ethylene Glycol). Ethanol, Salicylate, Acetaminophen, Tricyclic Antidepressants and several therapeutic drugs may be individually assayed in serum or plasma specimen. Toxicology testing by the [facility] is an aid to medical diagnosis and treatment of patients. No documented chain of custody was maintained. Results are intended to be used for clinical purposes only. ? Adriana Adams DO LAB - URINE CHEMISTR Y ORDERABLES Performing Organization Address [facility]/State/[facility] Co de Phone Number [facility] [address] [place] [phone], [facility] [phone] * (ABNORMAL) THYROGLOBULIN BY ANTONIETA RFLXED (08/14/2022 3:21 PM ZINC MINER) Thyroglobulin by ANTONIETA 629.0(H) 1.5 - 38.5 ng/mL 08/18/2022 6:08 PM ZINC MINER [facility] ([facility]) Comment: Results confirmed on dilution. According [...] is 0.1 ng/mL Thyroglobulin measured by Lisbet Custer Immunometric Assay Blood BLOOD SPECIMEN / Unknown Lab Venipuncture / Unknown 08/14/2022 3:21 PM ZINC MINER 08/14/2022 3:33 PM ZINC MINER Narrative [facility] ([facility]) - 08/18/2022 6:08 PM ZINC MINER Performed at: ??01 - [facility] [place] [address] [facility], [place], [place] ??[id number] Building Insulation Supervisor: Oral Melendez PhD, Phone: ??[phone] Yosi Bustamante MD LAB - CHEMISTRY ORD JENISE [facility] ([facility]) [address] [place] [address], [facility] * (ABNORMAL) T4 FREE (08/14/2022 3:21 PM ZINC MINER) Pathologist [facility] T4 Free <0.4(L) 0.7 - 1.5 ng/dL 08/14/2022 5:33 PM ZINC MINER [facility] Blood BLOOD SPECIMEN / Unknown Lab Venipuncture / Unknown 08/14/2022 3:21 PM ZINC MINER 08/14/2022 3:39 PM ZINC MINER Yosi Bustamante MD LAB - CHEMISTRY ASH WEAVER [facility] [address] [place] [address], [facility] [phone] * HIV-1 HIV-2 ANTIBODY + HIV P24 AG PANEL (New on 11/18) (08/14/2022 3:21 PM ZINC MINER) Pathologist [facility] HIV Antigen/Antibod y 1 & 2 Non-reacti ve Non-react oswaldo 08/14/2022 4:18 PM ZINC MINER [facility] Comment:No Laboratory eviden ce of HIV infection. Blood BLOOD SPECIMEN / Unknown Lab Venipuncture / Unknown 08/14/2022 3:21 PM ZINC MINER 08/14/2022 3:33 PM ZINC MINER Adriana Adams DO LAB - CHEMISTRY ORDSrinivas WEAVER Performing Organization Address [facility]/ZIP Co de Phone Number [facility] [address] [place] [address], [facility] [phone] * THYROGLOBULIN REFLEX PROFILE (08/14/2022 3:21 PM ZINC MINER) [facility] Thyroglobulin Antibody <1.0 0.0 - 0.9 IU/mL 08/18/2022 6:08 PM ZINC MINER [facility] ([facility]) Comment:Thyroglobulin Antibo dy measured by Lisbet Custer Methodology Blood BLOOD SPECIMEN / Unknown Lab Venipuncture / Unknown 08/14/2022 3:21 PM ZINC MINER 08/14/2022 3:33 PM ZINC MINER Narrative [facility] ([facility]) - 08/18/2022 6:08 PM ZINC MINER Performed at: ??01 - [facility] [place] [id number] [place], [place] ??[id number] Building Insulation Supervisor: Oral Melendez PhD, Phone: ??[phone] Yosi Bustamante MD LAB - CHEMISTRY ORD JNEISE Performing Organization Address [facility]/ZIP Co de Phone Number [facility] ([facility]) [address] [place] [address] * (ABNORMAL) VITAMIN D 25-HYDROXY (08/14/2022 3:21 PM ZINC MINER) [facility] Vitamin D, 25 Hydroxy 21.0(L) 30.0 - 80.0 ng/mL 08/14/2022 4:45 PM ZINC MINER [facility] Comment: The recommendations for [...] Lab Venipuncture / Unknown 08/14/2022 3:21 PM ZINC MINER 08/14/2022 3:39 PM ZINC MINER Yosi Bustamante MD LAB - CHEMISTRY ORD ERABLES [facility] [address] [place] [address], [facility] [phone] * (ABNORMAL) RENAL FUNCTION PANEL (08/14/2022 3:21 PM ZINC MINER) BUN 13 7 - 26 mg/dL 08/14/2022 4:15 PM [facility] Creatinine 1.11(H) 0.56 - 0.96 mg/dL 08/14/2022 4:15 PM [facility] Sodium 138 136 - 145 mmol/L 08/14/2022 4:15 PM [facility] Potassium 3.6 3.5 - 4.5 mmol/L 08/14/2022 4:15 PM [facility] Chloride 103 98 - 107 mmol/L 08/14/2022 4:15 PM [facility] CO2 23 22 - 29 mmol/L 08/14/2022 4:15 PM [facility] Glucose 84 70 - 115 mg/dL 08/14/2022 4:15 PM [facility] Albumin 3.7 3.4 - 5.0 g/dL 08/14/2022 4:15 PM [facility] Calcium 8.3(L) 8.4 - 10.2 mg/dL 08/14/2022 4:15 PM [facility] Phosphorus 4.2 2.9 - 5.1 mg/dL 08/14/2022 4:15 PM [facility] Anion Gap 16 8 - 18 08/14/2022 4:15 PM [facility] BUN/Creatinine Ratio 12 7 - 23 08/14/2022 4:15 PM [facility] Osmolality Calculated 285 270 - 300 mOsm/kg 08/14/2022 4:15 PM [facility] eGFR by CKD-EPI 56(L) >=90 mL/min/1.7 3 m2 08/14/2022 4:15 PM [facility] Blood BLOOD SPECIMEN / Unknown Lab Venipuncture / Unknown 08/14/2022 3:21 PM ZINC MINER 08/14/2022 3:39 PM ZINC MINER Yosi Bustamante MD LAB - CHEMISTRY SHANDRA BURDEN [address] [address], [facility] [phone] * (ABNORMAL) TSH REFLEX FREE T4 (08/14/2022 3:21 PM ZINC MINER) TSH 208.891(H) 0.350 - 4.940 uIU/mL 08/14/2022 5:01 PM [facility] Comment:Result obtained by yaa holliday. Blood BLOOD SPECIMEN / Unknown Lab Venipuncture / Unknown 08/14/2022 3:21 PM ZINC MINER 08/14/2022 3:39 PM ZINC MINER Yosi Bustamante MD LAB - CHEMISTRY ASH WEAVER Performing Organization Address City/[facility]/ZIP Co de Phone Number [address] [address], [facility] [phone] documented in this encounter Visit Diagnoses Diagnosis Postoperative hypothyroidism- Primary Postsurgical hypothyroidism Thyroid cancer (HCC) Malignant neoplasm of thyroid gland Hypocalcemia Other hypoparathyroidism (HCC) Left shoulder pain, unspecified chronicity Preventative health care Routine general medical examination at a health care facility documented in this encounter Care Teams Qa Consultant Relationship Specialty Start Date End Date Taniya Grimes MD [address] OF [facility] [place] [address] PCP - General 07/15/22 10/06/22 Adriana Adams DO [address] [place] [address] Resident - PCP Internal Medicine 04/06/22 01/12/23 documented as of this encounter
--- OUTSIDE RECORDS SUMMARY | 2024-07-26 08:33 | XMS_ITS | Encounter Summary ---
Author Organization [facility] Health Address [address] [place] [address] Care Team Providers Care Director Plans Name Role Phone Adriana Adams DO Unavailable Taniya Grimes MD Primary Care Provider [phone] Encounter Details Date Type Department Care Team (Latest Contact Info) Description 09/02/2022 10:00 AM GAS STOVE SERVICER HELPER - 09/02/2022 11:59 PM GAS STOVE SERVICER HELPER Hospital Encounter [facility] [place] [address] Gustavo Owens MD [address] [place] [address] [phone] Discharge Disposition: Home or Self Care Social [...] SERVICER HELPER documented as of this encounter Last Filed Vital Signs Vital Sign Reading Time Taken Comments Blood Pressure 152/100 09/02/2022 10:29 AM GAS STOVE SERVICER HELPER Pulse 82 09/02/2022 10:29 AM GAS STOVE SERVICER HELPER Temperature 36.7 ??C (98 ??F) 09/02/2022 10:29 AM GAS STOVE SERVICER HELPER Respiratory Rate 20 09/02/2022 10:29 AM GAS STOVE SERVICER HELPER Oxygen Saturation 99% 09/02/2022 10:29 AM GAS STOVE SERVICER HELPER Inhaled Oxygen Concentration - - Weight 70.5 kg (155 lb 6.4 oz) 09/02/2022 10:29 AM GAS STOVE SERVICER HELPER Height - - Body Mass Index 28.42 09/02/2022 9:00 AM GAS STOVE SERVICER HELPER documented in this encounter Functional Status Functional [...] A DAY 60 capsule 11 02/22/2022 05/28/2023 [id number] PO Take by mouth once daily 06/13/2023 [...] fluticasone propionate (FLONASE) 50 MCG/ACT nasal spray [place] 2 (two) sprays into each nostril once daily 48 g 10/20/2021 11/25/2022 gabapentin (Neurontin) 300 MG capsuleIndications:Nicole stahl osteoarthritis of left hip Take 1 (one) capsule by mouth 3 times daily 90 capsule 5 04/06/2022 11/19/2022 KQOGNH-LNPJFVMFW-JRG-C -HYAL PO Take 1 tablet by mouth [...] six day supply. 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 Negative surgical margin obtainedon the left tracheal wall excision site. The [...] received treatment with ablative I 131 administration shereceived 157.6 mCi on 03/19/2021. During endocrinology clinic [...] TWICE A DAY 60 capsule 11 ??? [id number]-PYCOZPBLP-BPPU PO Take by mouth once daily ??? [...] fluticasone propionate (FLONASE) 50 MCG/ACT nasal spray [place] 2 (two) sprays into each nostril once daily 48 g 0 ??? gabapentin (Neurontin) 300 MG capsule Take 1 (one) capsule by mouth 3 times daily 90 capsule 5 ??? RXMWFJ-ZTCZKTVLQ-KZS-C-HYAL PO Take 1 tablet by mouth 3 [...] Membrances: Mucous Membranes: Moist Eye: Eyes: 0-No acid changer baseline Ears: Salivary Glands: Salivary Glands: 0-no acid changer baseline Pharynx and Esophagus: Pharynx and Esophagus: 0-No acid changer baseline Larynx: Larynx: 0-No change in baseline Upper GI: Upper GI: 0-no acid changer baseline Lower GI including pelvis: Lower GI including pelvis: 0-No acid changer baseline Lungs: Lungs: 0-No acid changer baseline Other: ECOG Performance Status: 2 Physical [...] arm. 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 Musculoskeletal: No tenderness elicited on palpation [...] Assessment / Impression: 62-year-old with surgical stage: [id number] AJCC IVb papillary thyroid cancer Now with [...] symptoms associated with the proposed therapy andpossible ocean transportation intermediary side effects. I used diagrams to illustrate [...] of multimodality cancer care. Gustavo Owens MD STOVE SERVICER HELPER * Favio Choi RN - 09/02/2022 10:46 AM CST NCCN distress 8. Patient refuses to see switch operators supervisor today and does not want switch operators supervisor to call her either. Patient's sister, Rocio, with her. STOVE SERVICER HELPER documented in this encounter Plan of Treatment Upcoming Encounters Date Type Department Care Team (Late st Contact Info) Description 08/02/2024 2:20 PM GAS STOVE SERVICER HELPER Appointment [address] [address] 08/02/2024 3:00 PM GAS STOVE SERVICER HELPER Office Visit [facility] - Hematology/Oncology [address] [place] [phone] Remi Beckett MD [address] [place] [address] 08/18/2024 1:45 PM GAS STOVE SERVICER HELPER Office Visit [facility] - ENT [address] [place] [phone] Neri Delgado MD [address] [place] [address] 08/30/2024 2:20 PM GAS STOVE SERVICER HELPER Appointment [facility] [address] [place] [address] documented as of this encounter Visit Diagnoses Not on filedocumented in this encounter Care Teams Director Plans Relationship Specialty Start Date End Date Taniya Grimes MD [address] [place] [address] [place] [phone] PCP - General 07/15/22 10/06/22 Adriana Adams DO [address] [place] [phone] Resident - PCP Internal Medicine 04/06/22 01/12/23 documented as of this encounter
--- OUTSIDE RECORDS SUMMARY | 2024-07-26 08:33 | XMS_ITS | Encounter Summary ---
Author Organization [facility] Health Address [address] [facility] [place] [address] Care Team Providers Care Kettle Operator Head Name Role Phone Adriana Adams DO Unavailable Taniya Grimes MD Primary Care Provider Reason for Visit * Radiology Services (Routine) - Closed Specialty Diagnoses / Procedures Referred By Yuan robins Referred To Contact Nuclear Medicine Diagnoses Postoperative hypothyroidism Thyroid cancer (HCC) Hypocalcemia Other hypoparathyroidism (HCC) Procedures NM THYROID WHOLE BODY SCAN Yosi Bustamante MD [address] [place] [address] 2[place] [address] Referral ID Status Reason Start Date Expiration Date Visits Re quested Visits Authorized [id number] Closed 08/24/2022 08/24/2023 1 1 Encounter Details Date Type Department Care Team (Latest Contact Info) Description 08/18/2022 2:00 PM POWDER CARRIER - 08/18/2022 11:59 PM [facility] Hospital Encounter [facility] [address] [place] [address] Yosi Bustamnate MD [address] [place] [address] [address]L Div [place], [place] [phone] Discharge Disposition: Home or Self Care Social [...] A DAY 60 capsule 11 02/22/2022 05/28/2023 [id number] PO Take by mouth once daily 06/13/2023 [...] fluticasone propionate (FLONASE) 50 MCG/ACT nasal spray [place] 2 (two) sprays into each nostril once daily 48 g 10/20/2021 11/25/2022 gabapentin (Neurontin) 300 MG capsuleIndications:Prima ry osteoarthritis of left hip Take 1 (one) capsule by mouth 3 times daily 90 capsule 5 04/06/2022 11/19/2022 [id number]-GHVDUQMVR-LOP-C-H YAL PO Take 1 tablet by mouth [...] six day supply. 21 tablet 04/10/2022 09/14/2022 [facility] Natural Products (NEURIVA PO) Take [...] st Contact Info) Description 08/02/2024 2:20 PM POWDER CARRIER Appointment [facility] [address] [place] [address] 08/02/2024 3:00 PM POWDER CARRIER Office [facility] - Hematology/Oncology [address] [place] [phone] Remi Beckett MD [address] [place] [phone] 08/18/2024 1:45 PM POWDER CARRIER Office Visit [facility] - ENT [address] [place] [phone] Neri Delgado MD [address] [place] [address] 08/30/2024 2:20 PM POWDER CARRIER Appointment [facility] [address] [place] [address] documented as of this encounter Procedures Procedure Name Priority Date/Time Associated Diagnosis Comments NM TUMOR LOCAL SPECT CT Routine 08/19/2022 3:24 PM POWDER CARRIER Postoperative hypothyroidism Thyroid cancer (HCC) Hypocalcemia Other hypoparathyroidism (CMS/HCC) NM THYROID WHOLE BODY SCAN Routine 08/19/2022 3:24 PM POWDER CARRIER Postoperative hypothyroidism Thyroid cancer (HCC) Hypocalcemia Other hypoparathyroidism (CMS/HCC) documented in this encounter Results * NM TUMOR LOCAL SPECT CT (08/19/2022 3:24 PM POWDER CARRIER) Anatomical Region Laterality Modality Nuclear Medicine 08/19/2022 3:55 PM POWDER CARRIER Impressions 08/19/2022 4:38 PM POWDER CARRIER Impression: Focal uptake in anteriorly in the left aspect of the mid cervical spine, suggestive of metastatic disease. Further evaluation with MRI cervical spine is recommended to better evaluate the site of the recurrence and the proximity to the spinal cord. Results discussed with Dr. Bustamante by Dr. Sy on 08/19/2022 at 3:35 PM. > Dictated by Donald Mayer MD (Clinical Law Professor) 08/19/2022 4:15 PM ITiesha DO have personally reviewed and interpreted this examination/study. > Interpreting Provider: Tiesha Sy DO on 08/19/2022 4:38 PM Narrative 08/19/2022 4:38 PM POWDER CARRIER PROCEDURE: ??NM THYROID WHOLE BODY SCAN, NM TUMOR LOCAL SPECT CT, DATE/TIME OF EXAM: ??08/19/2022 3:24 PM, LOCATION ??[facility] INDICATION: E89.0: Postoperative hypothyroidism C73: Thyroid [...] CT,DATE/TIME OF EXAM: 08/19/2022 3:24 PM, LOCATION [facility] INDICATION: E89.0: Postoperative hypothyroidism C73: Thyroid [...] PM. > Dictated by Donald Mayer MD (Clinical Law Professor) 08/19/2022 4:15 PM Tiesha Mckeon DO have personally reviewed and interpreted this examination/study. > Interpreting Provider: Tiesha Sy DO on 08/19/2022 4:38 PM Yosi Bustamante MD NM ORDERABLES * NM THYROID WHOLE BODY SCAN (08/19/2022 3:24 PM POWDER CARRIER) Anatomical Region Laterality Modality Chest Nuclear Medicine 08/19/2022 3:55 PM POWDER CARRIER Impressions 08/19/2022 4:38 PM POWDER CARRIER Impression: Focal uptake in anteriorly in the left aspect of the mid cervical spine, suggestive of metastatic disease. Further evaluation with MRI cervical spine is recommended to better evaluate the site of the recurrence and the proximity to the spinal cord. Results discussed with Dr. Bustamante by Dr. Sy on 08/19/2022 at 3:35 PM. > Dictated by Donald Mayer MD (Clinical Law Professor) 08/19/2022 4:15 PM Tiesha Mckeon DO have personally reviewed and interpreted this examination/study. > Interpreting Provider: Tiesha Sy DO on 08/19/2022 4:38 PM Narrative 08/19/2022 4:38 PM POWDER CARRIER PROCEDURE: ??NM THYROID WHOLE BODY SCAN, NM TUMOR LOCAL SPECT CT, DATE/TIME OF EXAM: ??08/19/2022 3:24 PM, LOCATION ??[facility] INDICATION: E89.0: Postoperative hypothyroidism C73: Thyroid [...] CT,DATE/TIME OF EXAM: 08/19/2022 3:24 PM, LOCATION [facility] INDICATION: E89.0: Postoperative hypothyroidism C73: Thyroid [...] PM. > Dictated by Donald Mayer MD (Clinical Law Professor) 08/19/2022 4:15 PM ITiesha DO have personally [...] at 1500 $ Given 08/18/2022 2:39 PM POWDER CARRIER 3.25 millicuries documented in this encounter Care Teams Kettle Operator Head Relationship Specialty Start Date End Date Taniya Grimes MD [address] [facility] 2L DIV OF [facility] [place] [phone] PCP - General 07/15/22 10/06/22 Adriana Adams DO [address] [place] [phone] Resident - PCP Internal Medicine 04/06/22 01/12/23 documented as of this encounter
--- OUTSIDE RECORDS SUMMARY | 2024-07-26 08:33 | XMS_ITS | Encounter Summary ---
Author Organization [facility] Address [address] [facility] [place] [address] Care Team Providers Care Technical Aide Name Role Phone Adriana Adams DO Unavailable Taniya Grimes MD Primary Care Provider Reason for Referral * Radiology Services (Urgent) - Closed Specialty Diagnoses / Procedures Referred By Yuan robins Referred To Contact MRI Diagnoses Thyroid cancer (HCC) Postoperative hypothyroidism Procedures MRI CERVICAL SPINE WWO CONT Yosi Bustamante MD [address] [place] [address] 2[place] [address] [facility] [address] [place] [address] Referral ID Status Reason Start Date Expiration Date Visits Re quested Visits Authorized [id number] Closed 08/19/2022 08/19/2023 1 1 NESS AND FINANCIAL COUNSEL Encounter Details Date Type Department Care Team (Late st Contact Info) Description 08/19/2022 Orders Only [facility] Endocrinology, Diabetes and Metabolism [address] [facility], [place] [address] Yosi Bustamante MD [address] [place] [address] 2[place] [address] Thyroid cancer (HCC) ; Postoperative hypothyroidism Social [...] st Contact Info) Description 08/02/2024 2:20 PM BUSINESS AND FINANCIAL COUNSEL Appointment [facility] [address] [place] [address] 08/02/2024 3:00 PM BUSINESS AND FINANCIAL COUNSEL Office Visit [facility] - Hematology/Oncology [address] [place] [phone] Remi Beckett MD [address] [place] [phone] 08/18/2024 1:45 PM BUSINESS AND FINANCIAL COUNSEL Office Visit [facility] - ENT [address] [place] [phone] Neri Delgado MD [address] [place] [address] 08/30/2024 2:20 PM BUSINESS AND FINANCIAL COUNSEL Appointment [facility] [address] [place] [address] documented as of this encounter Results * MRI CERVICAL SPINE WWO CONT (08/21/2022 3:59 PM BUSINESS AND FINANCIAL COUNSEL) Anatomical Region Laterality Modality Spine Magnetic Resonan ce 08/24/2022 2:49 PM BUSINESS AND FINANCIAL COUNSEL Impressions 08/24/2022 8:18 PM BUSINESS AND FINANCIAL COUNSEL IMPRESSION: 1.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 [...] 08/24/2022 8:18 PM Narrative 08/24/2022 8:18 PM BUSINESS AND FINANCIAL COUNSEL PROCEDURE: ??MRI CERVICAL SPINE WWO CONT, DATE/TIME OF EXAM: ??08/21/2022 3:59 PM, LOCATION ??[facility] INDICATION: C73: Thyroid cancer (CMS/HCC) E89.0: [...] CONT, DATE/TIME OF EXAM: :59 PM, LOCATION [facility] INDICATION: C73: Thyroid cancer (CMS/HCC) E89.0: [...] hypothyroidism documented in this encounter Care Teams Technical Aide Relationship Specialty Start Date End Date Taniya Grimes MD [address] [facility] 2L DIV OF [facility] [place] [phone] PCP - General 07/15/22 10/06/22 Adriana Adams DO [address] [place] [phone] Resident - PCP Internal Medicine 04/06/22 01/12/23 documented as of this encounter
--- OUTSIDE RECORDS SUMMARY | 2024-07-26 08:33 | XMS_ITS | Encounter Summary ---
Author Organization [facility] Health Address [address] [facility] [place] [address] Care Team Providers Care Time Clock Repairer Name Role Phone Adriana Adams DO Unavailable Taniya Grimes MD Primary Care Provider Reason for Visit * Reason Onset Date Comments Pre-op Clearance 07/23/2022 Encounter Details Date Type Department Care Team (Late st Contact Info) Description 07/23/2022 Telephone [facility] - Orthopedics [address] [place] [address], [place] [address] Mary Beth Lauren MD [address] [place] [address] [address] [place] [address] Pre-op Clearance Social History Tobacco [...] Coronavirus/COVID-19? No / Unsure 06/25/2022 10:01 AM AIR HOLE DRILLER documented as of this encounter Functional Status [...] st Contact Info) Description 08/02/2024 2:20 PM AIR HOLE DRILLER Appointment [facility] [address] [place] [address] 08/02/2024 3:00 PM AIR HOLE DRILLER Office Visit [facility] - Hematology/Oncology [address] [place] [phone] Remi Beckett MD [address] [place] [phone] 08/18/2024 1:45 PM AIR HOLE DRILLER Office Visit [facility] - ENT [address] [place] [phone] Neri Delgado MD [address] [place] [address] 08/30/2024 2:20 PM AIR HOLE DRILLER Appointment [facility] [address] [place] [address] documented as of this encounter Visit Diagnoses Not on filedocumented in this encounter Care Teams Time Clock Repairer Relationship Specialty Start Date End Date Taniya Grimes MD [address] [place] [address] 2L DIV [place] [phone] PCP - General 07/15/22 10/06/22 Adriana Adams DO [facility] [place] [phone] Resident - PCP Internal Medicine 04/06/22 01/12/23 documented as of this encounter
--- OUTSIDE RECORDS SUMMARY | 2024-07-26 08:33 | XMS_ITS | Encounter Summary ---
Author Organization [facility] Address [address] [facility] [place] [address] Care Team Providers Care Special Population Paraprofessional Name Role Phone Adriana Adams DO Unavailable Taniya Grimes MD Primary Care Provider Reason for Visit * Radiology Services (Urgent) - Closed Specialty Diagnoses / Procedures Referred By Yuan robins Referred To Contact MRI Diagnoses Thyroid cancer (HCC) Postoperative hypothyroidism Procedures MRI CERVICAL SPINE WWO CONT Yosi Bustamante MD [address] [place] [address] 2L [place] [address] [facility] [address] [place] [address] Referral ID Status Reason Start Date Expiration Date Visits Re quested Visits Authorized [id number] Closed 08/19/2022 08/19/2023 1 1 Encounter Details Date Type Department Care Team (Latest Contact Info) Description 08/21/2022 3:10 PM CO FOUNDER AND CEO - 08/21/2022 11:59 PM [facility] Hospital Encounter [facility] MRI [address] [place] [address] Yosi Bustamante MD [address] [place] [address] 2L Div [place], [place] [phone] Discharge Disposition: Home or Self Care Social [...] A DAY 60 capsule 11 02/22/2022 05/28/2023 [id number] PO Take by mouth once daily 06/13/2023 [...] fluticasone propionate (FLONASE) 50 MCG/ACT nasal spray [place] 2 (two) sprays into each nostril once daily 48 g 10/20/2021 11/25/2022 gabapentin (Neurontin) 300 MG capsuleIndications:Prima ry osteoarthritis of left hip Take 1 (one) capsule by mouth 3 times daily 90 capsule 5 04/06/2022 11/19/2022 XOHTOJ-NXWLZBXNU-XFM-C-H YAL PO Take 1 tablet by mouth [...] six day supply. 21 tablet 04/10/2022 09/14/2022 [facility] Natural Products (NEURIVA PO) [...] st Contact Info) Description 08/02/2024 2:20 PM CO FOUNDER AND CEO Appointment [facility] [address] [place] [address] 08/02/2024 3:00 PM CO FOUNDER AND CEO Office Visit [facility] - Hematology/Oncology [address] [place] [phone] Remi Beckett MD [address] [place] [phone] 08/18/2024 1:45 PM CO FOUNDER AND CEO Office Visit [facility] - ENT [address] [place] [phone] Neri Delgado MD [address] [place] [address] 08/30/2024 2:20 PM CO FOUNDER AND CEO Appointment [facility] [address] [place] [address] documented as of this encounter Procedures Procedure Name Priority Date/Time Associated Diagnosis Comments MRI CERVICAL SPINE WWO CONT [place] 08/21/2022 3:59 PM CO FOUNDER AND CEO Thyroid cancer (HCC) Postoperative hypothyroidism documented in this encounter Results * MRI CERVICAL SPINE WWO CONT (08/21/2022 3:59 PM CO FOUNDER AND CEO) Anatomical Region Laterality Modality Spine Magnetic Resonan ce 08/24/2022 2:49 PM CO FOUNDER AND CEO Impressions 08/24/2022 8:18 PM CO FOUNDER AND CEO IMPRESSION: 1.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 [...] 08/24/2022 8:18 PM Narrative 08/24/2022 8:18 PM CO FOUNDER AND CEO PROCEDURE: ??MRI CERVICAL SPINE WWO CONT, DATE/TIME OF EXAM: ??08/21/2022 3:59 PM, LOCATION ??[facility] INDICATION: C73: Thyroid cancer (CMS/HCC) E89.0: Postoperative [...] CONT, DATE/TIME OF EXAM: :59 PM, LOCATION [facility] INDICATION: C73: Thyroid cancer (CMS/HCC) E89.0: Postoperative [...] $ Given - Contrast 08/21/2022 3:49 PM CO FOUNDER AND CEO 7 mL documented in this encounter Care Teams Special Population Paraprofessional Relationship Specialty Start Date End Date Taniya Grimes MD [address] [place] [address] PCP - General 07/15/22 10/06/22 Adriana Adams DO [address] [place] [address] Resident - PCP Internal Medicine 04/06/22 01/12/23 documented as of this encounter
--- OUTSIDE RECORDS SUMMARY | 2024-07-26 08:33 | XMS_ITS | Encounter Summary ---
Author Organization [facility] Health Address [address] [facility] [place] [address] Care Team Providers Care Filemaker Developer Name Role Phone Adriana Adams DO Unavailable Taniya Grimes MD Primary Care Provider Reason for Visit * Reason Onset Date Comments MEDICATION REFILL 07/28/2022 Encounter Details Date Type Department Care Team (Late st Contact Info) Description 07/28/2022 Refill [facility] Internal Medicine [address] [place] [address], [place] [address] Taniya Grimes MD [address] [place] [address] [place] [address] MEDICATION REFILL Social History Tobacco [...] Esther Branch RN - 07/28/2022 10:11 AM HEAVY DUTY PRESS OPERATOR Pt calling requesting refills on her meds as ordered at [facility]. Requesting Cyclobenzaprine 5mg TID PRN [...] reapply a new patch 12 hours later. Y DUTY PRESS OPERATOR documented in this encounter Plan of Treatment Upcoming Encounters Date Type Department Care Team (Late st Contact Info) Description 08/02/2024 2:20 PM HEAVY DUTY PRESS OPERATOR Appointment [facility] [address] [place] [address] 08/02/2024 3:00 PM HEAVY DUTY PRESS OPERATOR Office Visit [facility] - Hematology/Oncology [address] [place] [phone] Remi Beckett MD [address] [place] [phone] 08/18/2024 1:45 PM HEAVY DUTY PRESS OPERATOR Office Visit [facility] - ENT [address] [place] [phone] Neri Delgado MD [address] [place] [address] 08/30/2024 2:20 PM HEAVY DUTY PRESS OPERATOR Appointment [facility] [address] [place] [address] documented as of this encounter Visit Diagnoses Not on filedocumented in this encounter Care Teams Filemaker Developer Relationship Specialty Start Date End Date Taniya Grimes MD [address] [place] [address] 2L [place] [phone] PCP - General 07/15/22 10/06/22 Adriana Adams DO [address] [place] [phone] Resident - PCP Internal Medicine 04/06/22 01/12/23 documented as of this encounter
--- OUTSIDE RECORDS SUMMARY | 2024-07-26 08:34 | XMS_ITS | Encounter Summary ---
Author Organization [facility] Address [address] [facility] [place] [address] Care Team Providers Care Internal Corrosion Specialist Name Role Phone Adriana Adams DO Unavailable Joseph Manzanares MD Primary Care Provider [phone] Encounter Details Date Type Department Care Team (Late st Contact Info) Description 06/16/2022 Orders Only [facility] Pediatrics - Orthopedics [address] [facility] [place] [address] Mary Beth Lauren MD [address] [facility] [address] [place] [address] Social History Tobacco Use Types [...] st Contact Info) Description 08/02/2024 2:20 PM BONE PULLER Appointment [facility] [address] [place] [address] 08/02/2024 3:00 PM BONE PULLER Office Visit [facility] - Hematology/Oncology [address] [place] [phone] Remi Beckett MD [address] [place] [phone] 08/18/2024 1:45 PM BONE PULLER Office Visit [facility] - ENT [address] [place] [phone] Neri Delgado MD [address] [place] [address] 08/30/2024 2:20 PM BONE PULLER Appointment [facility] [address] [place] [address] documented as of this encounter Visit Diagnoses Not on filedocumented in this encounter Care Teams Internal Corrosion Specialist Relationship Specialty Start Date End Date Joseph Manzanares MD [address] [place] [phone] PCP - General Internal Medicine 06/10/22 07/14/22 Adriana Adams DO [facility] [place] [phone] Resident - PCP Internal Medicine 04/06/22 01/12/23 documented as of this encounter
--- OUTSIDE RECORDS SUMMARY | 2024-07-26 08:34 | XMS_ITS | Encounter Summary ---
Author Organization [facility] Address [address] [facility] [place] [address] Care Team Providers Care Sales Vice President Name Role Phone Adriana Adams DO Unavailable Joseph Manzanares MD Primary Care Provider [phone] Encounter Details Date Type Department Care Team (Late st Contact Info) Description 06/17/2022 Orders Only [facility] [address] [place] [address] Mary Beth Lauren MD [address] [facility] DO[address] [place] [address] Rotator cuff arthropathy of left shoulder Social [...] st Contact Info) Description 08/02/2024 2:20 PM LIVESTOCK BROKER Appointment [facility] [address] [place] [address] 08/02/2024 3:00 PM LIVESTOCK BROKER Office Visit [facility] - Hematology/Oncology [address] [place] [phone] Remi Beckett MD [address] [place] [phone] 08/18/2024 1:45 PM LIVESTOCK BROKER Office Visit [facility] - ENT [address] [place] [phone] Neri Delgado MD [address] [place] [address] 08/30/2024 2:20 PM LIVESTOCK BROKER Appointment [facility] [address] [place] [address] documented as of this encounter Visit Diagnoses Diagnosis Rotator cuff arthropathy of left shoulder- Primary documented in this encounter Care Teams Sales Vice President Relationship Specialty Start Date End Date Joseph Manzanares MD [address] [place] [phone] PCP - General Internal Medicine 06/10/22 07/14/[address] [facility]8 [place] [phone] Resident - PCP Internal Medicine 04/06/22 01/12/23 documented as of this encounter
--- OUTSIDE RECORDS SUMMARY | 2024-07-26 08:34 | XMS_ITS | Encounter Summary ---
Author Organization [facility] Address [address] [place] [address] Care Team Providers Care Mother Tester Name Role Phone Adriana Adams DO Unavailable Joseph Manzanares MD Primary Care Provider [phone] Encounter Details Date Type Department Care Team (Latest Contact Info) Description 07/02/2022 11:45 AM PROCESS SERVER - 07/02/2022 11:59 PM PROCESS SERVER Hospital Encounter [facility] OP DRAW STATION [address] [place] [phone] Discharge Disposition: Home or Self Care Social [...] Coronavirus/COVID-19? No / Unsure 06/25/2022 10:01 AM PROCESS SERVER documented as of this encounter Functional Status [...] A DAY 60 capsule 11 02/22/2022 05/28/2023 ZRFPNLL-IGTHFLQWD-JGIY PO Take by mouth once daily 06/13/2023 [...] fluticasone propionate (FLONASE) 50 MCG/ACT nasal spray Indiahoma 2 (two) sprays into each nostril once daily 48 g 10/20/2021 11/25/2022 gabapentin (Neurontin) 300 MG capsuleIndications:Nicole favio osteoarthritis of left hip Take 1 (one) capsule by mouth 3 times daily 90 capsule 5 04/06/2022 11/19/2022 XETLET-WYOEIRWDZ-JXW-C -HYAL PO Take 1 tablet by mouth [...] Contact Info) Description 08/02/2024 2:20 PM PROCESS SERVER Appointment [facility] [address] [place] [address] 08/02/2024 3:00 PM PROCESS SERVER Office Visit [facility] - Hematology/Oncology [address] [place] [phone] Remi Beckett MD [address] [place] [phone] 08/18/2024 1:45 PM PROCESS SERVER Office Visit [facility] - ENT [address] [place] [address] [phone] Neri Delgado MD [address] [place] [address] 08/30/2024 2:20 PM PROCESS SERVER Appointment [facility] [address] [place] [address] documented as of this encounter Procedures Procedure Name Priority Date/Time Associated Diagnosis Comments THYROGLOBULIN REFLEX PROFILE Routine 07/02/2022 12:44 PM PROCESS SERVER Postoperative hypothyroidism Thyroid cancer (HCC) Hypocalcemia Other hypoparathyroidism (CMS/HCC) THYROGLOBULIN BY ANTONIETA RFLXED Routine 07/02/2022 12:44 PM PROCESS SERVER Postoperative hypothyroidism Thyroid cancer (HCC) Hypocalcemia Other hypoparathyroidism (CMS/HCC) TSH REFLEX FREE T4 Routine 07/02/2022 12 :44 PM PROCESS SERVER Postoperative hypothyroidism Thyroid cancer (HCC) Hypocalcemia Other hypoparathyroidism (CMS/HCC) T4 FREE Routine 07/02/2022 12:44 PM PROCESS SERVER Postoperative hypothyroidism Thyroid cancer (HCC) Hypocalcemia Other hypoparathyroidism (CMS/HCC) documented in this encounter Results * (ABNORMAL) THYROGLOBULIN BY ANTONIETA RFLXED (07/02/2022 12:44 PM PROCESS SERVER) Thyroglobulin by ANTONIETA 205.9(H) 1.5 - 38.5 ng/mL 07/03/2022 6:08 PM PROCESS SERVER [facility] ([facility]) Comment: According to the National [...] Lab Venipuncture / Unknown 07/02/2022 12:44 PM PROCESS SERVER 07/02/2022 2:08 PM PROCESS SERVER Narrative [facility] ([facility]) - 07/03/2022 6:08 PM PROCESS SERVER Performed at: ??01 - [facility] [address] [place], [place] ??[id number] Ems Helicopter Pilot: Oral Melendez PhD, Phone: ??[phone] Yosi Bustamante MD LAB - CHEMISTRY ORD ERABLES [facility] ([facility]) [address] [place] [address], [facility] * THYROGLOBULIN REFLEX PROFILE (07/02/2022 12:44 PM PROCESS SERVER) Thyroglobulin Antibody <1.0 0.0 - 0.9 IU/mL 07/03/2022 6:08 PM PROCESS SERVER [facility] ([facility]) Comment:Thyroglobulin Antibo dy measured by Lisbet Easton [employer] Blood BLOOD SPECIMEN / Unknown Lab Venipuncture / Unknown 07/02/2022 12:44 PM PROCESS SERVER 07/02/2022 2:08 PM PROCESS SERVER Narrative [facility] ([facility]) - 07/03/2022 6:08 PM PROCESS SERVER Performed at: ??01 - [facility] [address] [facility], [place], [place] ??[id number] Ems Helicopter Pilot: Oral Melendez PhD, Phone: ??[phone] Yosi Bustamante MD LAB - CHEMISTRY ORD ERABLES [facility] ([facility]) [address] [place] [address], [facility] * T4 FREE (07/02/2022 12:44 PM PROCESS SERVER) T4 Free 1.2 0.7 - 1.5 ng/dL 07/02/2022 3:14 PM PROCESS SERVER [facility] Blood BLOOD SPECIMEN / Unknown Lab Venipuncture / Unknown 07/02/2022 12:44 PM PROCESS SERVER 07/02/2022 2:24 PM PROCESS SERVER Yosi Bustamante MD LAB - CHEMISTRY ORD ERABLES Performing Organization Address City/[facility]/ZIP Co de Phone Number [address] [address], [place] [phone] * TSH REFLEX FREE T4 (07/02/2022 12:44 PM PROCESS SERVER) TSH 1.008 0.350 - 4.940 uIU/mL 07/02/2022 3:14 PM PROCESS SERVER [facility] Blood BLOOD SPECIMEN / Unknown Lab Venipuncture / Unknown 07/02/2022 12:44 PM PROCESS SERVER 07/02/2022 2:24 PM PROCESS SERVER Yosi Bustamante MD LAB - CHEMISTRY ORD ERABLES [address] [address], [place] [phone] documented in this encounter Visit Diagnoses Diagnosis Postoperative hypothyroidism- Primary Postsurgical hypothyroidism Thyroid cancer (HCC) Malignant neoplasm of thyroid gland Hypocalcemia Other hypoparathyroidism (HCC) documented in this encounter Care Teams Mother Tester Relationship Specialty Start Date End Date Joseph Manzanares MD [address] [place] [phone] PCP - General Internal Medicine 06/10/22 07/14/22 Adriana Adams DO [address] [place] [phone] Resident - PCP Internal Medicine 04/06/22 01/12/23 documented as of this encounter
--- OUTSIDE RECORDS SUMMARY | 2024-07-26 08:34 | XMS_ITS | Encounter Summary ---
Author Organization [facility] Address [address] [place] [address] Care Team Providers Care Glass Setter Name Role Phone Adriana Adams DO Unavailable Joseph Manzanares MD Primary Care Provider Reason for Visit * Reason Onset Date Comments Hospital Follow-up 07/13/2022 Encounter Details Date Type Department Care Team (Late st Contact Info) Description 07/13/2022 Telephone [facility] General Internal Medicine [address] [place] [address] Joseph Manzanares MD [address] [place] [address] Hospital Follow-up Social History Tobacco [...] Coronavirus/COVID-19? No / Unsure 06/25/2022 10:01 AM CANDLE WRAPPER documented as of this encounter Functional Status [...] She is home now and supposed to mushroom picker oral antibiotics. No appts available with Dr Adams till August. Attempted to be Transferred to [facility] to schedule hosp f/u. Spoke to pharmacist Eve. Staff will call her to schedule. Relayed information to patient. Pt also scheduled for earlier f/u with Dr Adams for 08/12/22. She asked for help scheduling her [place] Thyroid whole body scan . Spoke to Isa in [place] and she states she will call nurse at [facility] and discuss when is best time to schedule the test. The test requires coming in for contrast and coming back following day. LE WRAPPER documented in this encounter Plan of Treatment Upcoming Encounters Date Type Department Care Team (Late st Contact Info) Description 08/02/2024 2:20 PM CANDLE WRAPPER Appointment [facility] [address] [place] [address] 08/02/2024 3:00 PM CANDLE WRAPPER Office Visit [facility] - Hematology/Oncology [address] [place] [phone] Remi Beckett MD [address] [place] [address] 08/18/2024 1:45 PM CANDLE WRAPPER Office Visit [facility] - ENT [address] [place] [address], [place] [phone] Neri Delgado MD [address] [place] [address] 08/30/2024 2:20 PM CANDLE WRAPPER Appointment [facility] [address] [place] [address] documented as of this encounter Visit Diagnoses Not on filedocumented in this encounter Care Teams Glass Setter Relationship Specialty Start Date End Date Joseph Manzanares MD [address] [place] [phone] PCP - General Internal Medicine 06/10/22 07/14/22 Adriana Adams DO [address] [place] [phone] Resident - PCP Internal Medicine 04/06/22 01/12/23 documented as of this encounter
--- OUTSIDE RECORDS SUMMARY | 2024-07-26 08:34 | XMS_ITS | Encounter Summary ---
Author Organization [facility] Address [address] [facility] [place] [address] Care Team Providers Care Credit Relationship Manager Name Role Phone Adriana Adams DO Unavailable Joseph Manzanares MD Primary Care Provider [phone] Encounter Details Date Type Department Care Team [...] Coronavirus/COVID-19? No / Unsure 06/25/2022 10:01 AM UTILITY OPERATOR YARN documented as of this encounter Functional Status [...] st Contact Info) Description 08/02/2024 2:20 PM UTILITY OPERATOR YARN Appointment [facility] [address] [place] [address] 08/02/2024 3:00 PM UTILITY OPERATOR YARN Office Visit [facility] - Hematology/Oncology [address] [place] [address] [phone] Remi Beckett MD [address] [place] [address] [phone] 08/18/2024 1:45 PM UTILITY OPERATOR YARN Office Visit [facility] - ENT [address] [place] [address] [phone] Neri Delgado MD [address] [place] [address] 08/30/2024 2:20 PM UTILITY OPERATOR YARN Appointment [facility] [address] [place] [address] documented as of this encounter Visit Diagnoses Not on filedocumented in this encounter Care Teams Credit Relationship Manager Relationship Specialty Start Date End Date Joseph Manzanares MD [address] [place] [address] [phone] PCP - General Internal Medicine 06/10/22 07/14/22 Adriana Adams DO [address] [place] [phone] Resident - PCP Internal Medicine 04/06/22 01/12/23 documented as of this encounter
--- OUTSIDE RECORDS SUMMARY | 2024-07-26 08:34 | XMS_ITS | Encounter Summary ---
Author Organization [facility] Address [address] [facility] [place] [address] Care Team Providers Care Reactor Kettle Operator Name Role Phone Adriana Adams DO Unavailable Joseph Manzanares MD Primary Care Provider [phone] Encounter Details Date Type Department Care Team [...] Coronavirus/COVID-19? No / Unsure 06/25/2022 10:01 AM IRRIGATION ENGINEER documented as of this encounter Functional [...] st Contact Info) Description 08/02/2024 2:20 PM IRRIGATION ENGINEER Appointment [facility] [address] [place] [address] 08/02/2024 3:00 PM IRRIGATION ENGINEER Office Visit [facility] - Hematology/Oncology [address] [place] [phone] Remi Beckett MD [address] [place] [address] [phone] 08/18/2024 1:45 PM IRRIGATION ENGINEER Office Visit [facility] - ENT [address] [place] [address] [phone] Neri Delgado MD [address] [place] [address] 08/30/2024 2:20 PM IRRIGATION ENGINEER Appointment [facility] [address] [place] [address] documented as of this encounter Visit Diagnoses Not on filedocumented in this encounter Care Teams Reactor Kettle Operator Relationship Specialty Start Date End Date Joseph Manzanares MD [address] [place] [address] [phone] PCP - General Internal Medicine 06/10/22 07/14/22 Adriana Adams DO [address] [place] [phone] Resident - PCP Internal Medicine 04/06/22 01/12/23 documented as of this encounter
--- OUTSIDE RECORDS SUMMARY | 2024-07-26 08:34 | XMS_ITS | Encounter Summary ---
Author Organization [facility] Address [address] [facility] [place] [address] Care Team Providers Care Ship Loader Name Role Phone Adriana Adams DO Unavailable Joseph Manzanares MD Primary Care Provider Taniya Grimes MD Primary Care Provider Reason for Visit * Reason Onset Date Comments Question 06/17/2022 Encounter Details Date Type Department Care Team (Late st Contact Info) Description 06/17/2022 Telephone [facility] Endocrinology, Diabetes and Metabolism [address] [place] [address], [place] [address] Yosi Bustamante MD [address] [place] [address] [place] [address] Question Social History Tobacco Use Types Packs/Day [...] Coronavirus/COVID-19? No / Unsure 06/25/2022 10:01 AM BULLDOZER MECHANIC documented as of this encounter Functional [...] Kassie Rand RN - 06/17/2022 4:19 PM BULLDOZER MECHANIC Pt called and reported she has a torn rotator cuff. Pt would like to have her shoulder surgery before thyroid treatment. Pt is wondering if she could postpone treatment? Please advise. DOZER MECHANIC documented in this encounter Plan of Treatment Upcoming Encounters Date Type Department Care Team (Late st Contact Info) Description 08/02/2024 2:20 PM BULLDOZER MECHANIC Appointment [facility] [address] [place] [address] 08/02/2024 3:00 PM BULLDOZER MECHANIC Office Visit [facility] - Hematology/Oncology [address] [place] [phone] Remi Beckett MD [address] [place] [phone] 08/18/2024 1:45 PM BULLDOZER MECHANIC Office Visit [facility] - ENT [address] [place] [phone] Neri Delgado MD [address] [place] [address] 08/30/2024 2:20 PM BULLDOZER MECHANIC Appointment [facility] [address] [place] [address] documented as of this encounter Visit Diagnoses Not on filedocumented in this encounter Care Teams Ship Loader Relationship Specialty Start Date End Date Joseph Manzanares MD [address] [place] [phone] PCP - General Internal Medicine 06/10/22 07/14/22 Taniya Grimes MD [address] [place] [phone] PCP - General 07/15/22 10/06/22 Adriana Adams DO [address] [place] [phone] Resident - PCP Internal Medicine 04/06/22 01/12/23 documented as of this encounter
--- OUTSIDE RECORDS SUMMARY | 2024-07-26 08:34 | XMS_ITS | Encounter Summary ---
Author Organization [facility] Address [address] [facility] [place] [address] Care Team Providers Care Nut Threader Name Role Phone Adriana Adams DO Unavailable Taniya Grimes MD Primary Care Provider Reason for Visit * Reason Onset Date Comments Reminder Call 07/23/2022 Encounter Details Date Type Department Care Team (Late st Contact Info) Description 07/23/2022 Telephone Transitional Care at [address] [phone] Mary Beth Aguero, RN Reminder [...] Coronavirus/COVID-19? No / Unsure 06/25/2022 10:01 AM BENEFITS CONSULTING ANALYST documented as of this encounter Functional Status [...] patient to bring any DC paperwork from [facility]. FITS CONSULTING ANALYST documented in this encounter Plan of Treatment Upcoming Encounters Date Type Department Care Team (Late st Contact Info) Description 08/02/2024 2:20 PM BENEFITS CONSULTING ANALYST Appointment [facility] [address] [place] [address] 08/02/2024 3:00 PM BENEFITS CONSULTING ANALYST Office Visit [facility] - Hematology/Oncology [address] [place] [phone] Remi Beckett MD [address] [place] [phone] 08/18/2024 1:45 PM BENEFITS CONSULTING ANALYST Office Visit [facility] - ENT [address] [place] [phone] Neri Delgado MD [address] [place] [address] 08/30/2024 2:20 PM BENEFITS CONSULTING ANALYST Appointment [facility] [address] [place] [address] documented as of this encounter Visit Diagnoses Not on filedocumented in this encounter Care Teams Nut Threader Relationship Specialty Start Date End Date Taniya Grimes MD [address] [place] [address] OF [facility] [place] [phone] PCP - General 07/15/22 10/06/22 Adriana Adams DO [address] [place] [phone] Resident - PCP Internal Medicine 04/06/22 01/12/23 documented as of this encounter
--- OUTSIDE RECORDS SUMMARY | 2024-07-26 08:34 | XMS_ITS | Encounter Summary ---
Author Organization [facility] Address [address] [facility] [place] [address] Care Team Providers Care Cvir Tech Name Role Phone Adriana Adams DO Unavailable Joseph Manzanares MD Primary Care Provider [phone] Reason for Visit * Reason Comments Transitional Care Encounter Details Date Type Department Care Team (Late st Contact Info) Description 07/13/2022 Transitional Care Transitional Care at [address] [phone] Anaya Benavidez, information and data architect analyst Social History Tobacco Use Types Packs/Day Years [...] Coronavirus/COVID-19? No / Unsure 06/25/2022 10:01 AM METER AND SERVICE LINE INSPECTOR documented as of this encounter Functional [...] telephone: Patient with recent IP discharge from [facility] on [facility]. This RN contacted Brisa Hogan by telephone ([phone]) to complete 48 hour post-discharge follow-up contact [...] time. Patient was encouraged to call this field underwriter with questions, concerns, barriers to care, and/or additional resources if needed. Patient verbalized understanding and agreement with plan. This RN will continue to provide post-discharge monitoring until patient completes [facility] follow up. Call Duration: 5 min Anaya Benavidez RN, BSN Construction Carpenter, [facility] Office: [phone] 07/13/2022 R AND SERVICE LINE INSPECTOR documented in this encounter Plan of Treatment Upcoming Encounters Date Type Department Care Team (Late st Contact Info) Description 08/02/2024 2:20 PM METER AND SERVICE LINE INSPECTOR Appointment [address] [address] 08/02/2024 3:00 PM METER AND SERVICE LINE INSPECTOR Office Visit [facility] - Hematology/Oncology [address] [place] [phone] Remi Beckett MD [address] [place] [phone] 08/18/2024 1:45 PM METER AND SERVICE LINE INSPECTOR Office Visit [facility] - ENT [address] [place] [phone] Neri Delgado MD [address] [place] [address] 08/30/2024 2:20 PM METER AND SERVICE LINE INSPECTOR Appointment [facility] [address] [place] [address] documented as of this encounter Visit Diagnoses Not on filedocumented in this encounter Care Teams Cvir Tech Relationship Specialty Start Date End Date Joseph Manzanares MD [address] [place] [phone] PCP - General Internal Medicine 06/10/22 07/14/22 Adriana Adams DO [address] [place] [address] Resident - PCP Internal Medicine 04/06/22 01/12/23 documented as of this encounter
--- OUTSIDE RECORDS SUMMARY | 2024-07-26 08:34 | XMS_ITS | Encounter Summary ---
Author Organization [facility] Health Address [address] [place] [address] Care Team Providers Care Process Control Operator Name Role Phone Adriana Adams DO Unavailable Eliane Tillman MD Primary Care Provider [phone] Joseph Manzanares MD Primary Care Provider [phone] Reason for Visit * Reason Onset Date Comments Med Question 06/04/2022 Encounter Details Date Type Department Care Team (Late st Contact Info) Description 06/04/2022 Telephone [facility] End[facility]ology, Diabetes and Metabolism [address] [place] [address], [place] [address] Yosi Bustamante MD [address] [place] [address] [place] [address] Med Question Social History Tobacco Use Types [...] Coronavirus/COVID-19? No / Unsure 06/25/2022 10:01 AM GRAIN SACKER documented as of this encounter Functional Status [...] you could send her Thyrogen injection to [facility] at [address] [facility] [address] [address]. -Sammy N SACKER documented in this encounter Plan of Treatment Upcoming Encounters Date Type Department Care Team (Late st Contact Info) Description 08/02/2024 2:20 PM GRAIN SACKER Appointment [facility] [address] [place] [address] 08/02/2024 3:00 PM GRAIN SACKER Office Visit [facility] - Hematology/Oncology [address] [place] [phone] Remi Beckett MD [address] [place] [phone] 08/18/2024 1:45 PM GRAIN SACKER Office Visit [facility] - ENT [address] [place] [phone] Neri Delgado MD [address] [place] [address] 08/30/2024 2:20 PM GRAIN SACKER Appointment [facility] [address] [place] [address] documented as of this encounter Visit Diagnoses Not on filedocumented in this encounter Care Teams Process Control Operator Relationship Specialty Start Date End Date Eliane Tillman MD [address] [place] [phone] PCP - General 05/11/22 06/09/22 Joseph Manzanares MD [address] [place] [phone] PCP - General Internal Medicine 06/10/22 07/14/22 Adriana Adams DO [address] [place] [phone] Resident - PCP Internal Medicine 04/06/22 01/12/23 documented as of this encounter
--- OUTSIDE RECORDS SUMMARY | 2024-07-26 08:34 | XMS_ITS | Encounter Summary ---
Author Organization [facility] Health Address [address] [facility] [place] [address] Care Team Providers Care Investigation Officer Name Role Phone Adriana Adams DO Unavailable Joseph Manzanares MD Primary Care Provider [phone] Reason for Visit * Reason Comments Establish Care Encounter Details Date Type Department Care Team (Latest Contact Info) Description 06/10/2022 1:30 PM BOTTOM CRANE OPERATOR Office Visit [facility] General Internal Medicine [address] [place] [phone] Adriana Adams DO [address] [place] [address] Left shoulder pain, unspecified chronicity [...] Comments Blood Pressure 115/68 06/10/2022 2:00 PM BOTTOM CRANE OPERATOR Pulse 94 06/10/2022 2:00 PM BOTTOM CRANE OPERATOR Temperature 36.1 ??C (96.9 ??F) 06/10/2022 2:00 PM CS T Respiratory Rate - - Oxygen Saturation 94% 06/10/2022 2:00 PM BOTTOM CRANE OPERATOR Inhaled Oxygen Concentration - - Weight 71.7 kg (158 lb) 06/10/2022 2:00 PM BOTTOM CRANE OPERATOR Height 157.5 cm (5' 2) 06/10/2022 2:00 PM BOTTOM CRANE OPERATOR Body Mass Index 28.9 06/10/2022 2:00 PM BOTTOM CRANE OPERATOR documented in this encounter Functional Status [...] Adriana Adams DO - 06/10/2022 3:15 PM BOTTOM CRANE OPERATOR Ms. Hogan, you were seen in the [facility] Internal Medicine clinic to establish care. Below [...] medication for your urinary incontinence called oxybutynin. OM CRANE OPERATOR documented in this encounter Progress Notes * Adriana Adams DO - 06/10/2022 2:09 PM CST [facility] General Internal Medicine New Patient Note [...] testing: Personally reviewed. Assessment & Plan: # [id number] thyroid cancer (PTC) s/p total thyroidectomy requiring [...] start oxybutynin. Rx sent to pharmacy - Ob-paper grader follow-up for well-woman exam. Preventative Care/Health Maintenance: [...] DO 06/10/2022 6:07 PM PGY-3 Internal Medicine OM CRANE OPERATOR Associated attestation - Joseph Manzanares MD - 06/11/2022 11:07 PM BOTTOM CRANE OPERATOR Attending Physician Attestation I saw and examined the patient with the resident, and I agree with the resident's history, physicalexam, and assessment and plan. Date of Service: 06/10/2022 Joseph Manzanares MD documented in this encounter Plan of Treatment Upcoming Encounters Date Type Department Care Team (Late st Contact Info) Description 08/02/2024 2:20 PM BOTTOM CRANE OPERATOR Appointment [facility] [address] [place] [address] 08/02/2024 3:00 PM BOTTOM CRANE OPERATOR Office Visit [facility] Group - Hematology/Oncology [address] [place] [phone] Remi Beckett MD [address] [place] [phone] 08/18/2024 1:45 PM BOTTOM CRANE OPERATOR Office Visit [facility] - ENT [address] [place] [phone] Neri Delgado MD [address] [place] [address] 08/30/2024 2:20 PM BOTTOM CRANE OPERATOR Appointment [facility] [address] [place] [address] documented as of this encounter Results * DRUG SCREEN TOX URINE PANEL (IN HOUSE) (08/14/2022 4:09 PM BOTTOM CRANE OPERATOR) Amphetamines Screen Urine Negative Negative: < 1000 ng/mL 08/14/2022 5:03 PM [facility] Barbiturates Screen Urine Negative Negative: < 200 ng/mL 08/14/2022 5:03 PM [facility] Benzodiazepine Screen Urine Negative Negative: < 200 ng/mL 08/14/2022 5:03 PM [facility] Opiates Urine Negative Negative: < 300 ng/mL 08/14/2022 5:03 PM [facility] Cocaine Metabolites Urine Negative Negative: < 300 ng/mL 08/14/2022 5:03 PM [facility] Phencyclidine Screen Urine Negative Negative: < 25 ng/ml 08/14/2022 5:03 PM [facility] Cannabinoids Screen Urine Negative Negative: <50 ng/mL 08/14/2022 5:03 PM [facility] Methadone Screen Urine Negative Negative: < 300 ng/mL 08/14/2022 5:03 PM [facility] Fentanyl Screen Urine Negative Negative: <1.5 ng/mL 08/14/2022 5:03 PM [facility] Urine URINE / Unknown Collection / Unknown 08/14/2022 4:09 PM BOTTOM CRANE OPERATOR 08/14/2022 4:25 PM [facility] - 08/14/2022 5:03 PM BOTTOM CRANE OPERATOR The Urine Toxicology Screening Panel does not screen for Propoxyphene, Meprobamate, Carisoprodol, Trazodone, assn-ygx-oabigzn medications and/or volatiles (Acetone, Isopropanol, Methanol or Ethylene Glycol). Ethanol, Salicylate, Acetaminophen, Tricyclic Antidepressants and several therapeutic drugs may be individually assayed in serum or plasma specimen. Toxicology testing by the [facility] is an aid to medical diagnosis and treatment of patients. No documented chain of custody was maintained. Results are intended to be used for clinical purposes only. ? Adriana Adams DO LAB - URINE CHEMISTR Y ORDERABLES Performing Organization Address [facility]/State/[facility] Co de Phone Number [facility] [address] [place] [address], [facility] [phone] documented in this encounter Visit Diagnoses Diagnosis [...] type documented in this encounter Care Teams Investigation Officer Relationship Specialty Start Date End Date Joseph Manzanares MD [address] [place] [address] PCP - General Internal Medicine 06/10/22 07/14/22 Adriana Adams DO [address] [place] [address] Resident - PCP Internal Medicine 04/06/22 01/12/23 documented as of this encounter
--- OUTSIDE RECORDS SUMMARY | 2024-07-26 08:34 | XMS_ITS | Encounter Summary ---
Author Organization [facility] Health Address [address] [facility] [address] Care Team Providers Care Bank And Savings Securities Trader Name Role Phone Adriana Adams DO Unavailable Eliane Tillman MD Primary Care Provider [phone] Encounter Details Date Type Department Care Team (Late st Contact Info) Description 05/20/2022 Orders Only [facility] End[facility]ology, Diabetes and Metabolism [address] [place] [address], [place] [phone] Yosi Bustamante MD [address] [place] [address] Div of Endocrinology [place], [place] [phone] Postoperative hypothyroidism ; Thyroid cancer (HCC) Social [...] st Contact Info) Description 08/02/2024 2:20 PM CORK FLOOR INSTALLER Appointment [facility] [address] [place] [address] 08/02/2024 3:00 PM CORK FLOOR INSTALLER Office Visit [facility] - Hematology/Oncology [address] [place] [phone] Remi Beckett MD [address] [place] [phone] 08/18/2024 1:45 PM CORK FLOOR INSTALLER Office Visit [facility] - ENT [address] [place] [phone] Neri Delgado MD [address] [place] [address] 08/30/2024 2:20 PM CORK FLOOR INSTALLER Appointment [facility] [address] [place] [address] documented as of this encounter Visit Diagnoses Diagnosis Postoperative hypothyroidism- Primary Postsurgical hypothyroidism Thyroid cancer (HCC) Malignant neoplasm of thyroid gland documented in this encounter Care Teams Bank And Savings Securities Trader Relationship Specialty Start Date End Date Eliane Tillman MD [facility] [place] [phone] PCP - General 05/11/22 06/09/22 Adriana Adams DO [address] [place] [phone] Resident - PCP Internal Medicine 04/06/22 01/12/23 documented as of this encounter
--- OUTSIDE RECORDS SUMMARY | 2024-07-26 08:34 | XMS_ITS | Encounter Summary ---
Author Organization [facility] Health Address [address] [facility] [place] [address] Care Team Providers Care Leak Hunter Name Role Phone Adriana Adams DO Unavailable Joseph Manzanares MD Primary Care Provider [phone] Reason for Visit * Reason Comments Refill Request Encounter Details Date Type Department Care Team (Late st Contact Info) Description 07/03/2022 Refill [facility], Diabetes and Metabolism [address] [place] [address], [facility] [place] [phone] Yosi Bustamante MD [address] [place] [address] of Endocrinology [place], [place] [phone] Refill Request Social History Tobacco Use Types [...] Coronavirus/COVID-19? No / Unsure 06/25/2022 10:01 AM GRANTS SPECIALIST documented as of this encounter Functional [...] st Contact Info) Description 08/02/2024 2:20 PM GRANTS SPECIALIST Appointment [facility] [address] [place] [address] 08/02/2024 3:00 PM GRANTS SPECIALIST Office Visit [facility] - Hematology/Oncology [address] [place] [phone] Remi Beckett MD [address] [place] [phone] 08/18/2024 1:45 PM GRANTS SPECIALIST Office Visit [facility] ENT [address] [place] [phone] Neri Delgado MD [address] [place] [address] 08/30/2024 2:20 PM GRANTS SPECIALIST Appointment [facility] [address] [place] [address] documented as of this encounter Visit Diagnoses Diagnosis Postoperative hypothyroidism Postsurgical hypothyroidism documented in this encounter Care Teams Leak Hunter Relationship Specialty Start Date End Date Joseph Manzanares MD [address] [place] [phone] PCP - General Internal Medicine 06/10/22 07/14/22 Adriana Adams DO [address] [place] [address] Resident - PCP Internal Medicine 04/06/22 01/12/23 documented as of this encounter
--- OUTSIDE RECORDS SUMMARY | 2024-07-26 08:34 | XMS_ITS | Encounter Summary ---
Author Organization [facility] Health Address [address] [facility] [place] [address] Care Team Providers Care Chisel Trimmer Name Role Phone Adriana Adams DO Unavailable Eliane Tillman MD Primary Care Provider [phone] Reason for Visit * Reason Onset Date Comments Surgery Consult 05/21/2022 Encounter Details Date Type Department Care Team (Late st Contact Info) Description 05/21/2022 Telephone [facility] Orthopedic Surgery [address] [place] [address] Radha Garcia, bushel worker Consult Social History Tobacco Use Types Packs/Day [...] back by end of day. Radha Garcia RN BSN [employer] Dept of Orthopedic Surgery [facility] Email: [email or web address] ABLE PINCH RIVETER documented in this encounter Plan of Treatment Upcoming Encounters Date Type Department Care Team (Late st Contact Info) Description 08/02/2024 2:20 PM PORTABLE PINCH RIVETER Appointment [facility] [address] [place] [address] 08/02/2024 3:00 PM PORTABLE PINCH RIVETER Office Visit [facility] - Hematology/Oncology [address] [place] [phone] Remi Beckett MD [address] [place] [phone] 08/18/2024 1:45 PM PORTABLE PINCH RIVETER Office Visit [facility] - ENT [address] [place] [phone] Neri Delgado MD [address] [place] [address] 08/30/2024 2:20 PM PORTABLE PINCH RIVETER Appointment [facility] [address] [place] [address] documented as of this encounter Visit Diagnoses Not on filedocumented in this encounter Care Teams Chisel Trimmer Relationship Specialty Start Date End Date Eliane Tillman MD [address] [place] [address] PCP - General 05/11/22 06/09/22 Adriana Adams DO [address] [place] [phone] Resident - PCP Internal Medicine 04/06/22 01/12/23 documented as of this encounter
--- OUTSIDE RECORDS SUMMARY | 2024-07-26 08:34 | XMS_ITS | Encounter Summary ---
Author Organization [facility] Address [address] [facility] [place] [address] Care Team Providers Care Instructor Technical Training Name Role Phone Adriana Adams DO Unavailable Joseph Manzanraes MD Primary Care Provider [phone] Reason for Referral * Radiology Services (Routine) - Closed Specialty Diagnoses / Procedures Referred By Contac t Referred To Contact Nuclear Medicine Diagnoses Postoperative hypothyroidism Thyroid cancer (HCC) Hypocalcemia Other hypoparathyroidism (HCC) Procedures NM THYROID WHOLE BODY SCAN Yosi Bustamante MD [address] [place] [address] [address] [address] Referral ID Status Reason Start Date Expiration Date Visits Re quested Visits Authorized [id number] Closed 08/24/2022 08/24/2023 1 1 UIT INSTALLER Reason for Visit * Reason Comments Thyroid Problem THYROID CANCER HYPOT HYROIDISM S/P THYROIDECTOMY Encounter Details Date Type Department Care Team (Latest Contact Info) Description 07/02/2022 10:00 AM CONDUIT INSTALLER Office Visit [facility] [address] [place] [address], [place] [address] Yosi Bustamante MD [address] [place] [address] 2[address] [place] [address] Postoperative hypothyroidism (Primary Dx); Thyroid cancer (HCC); [...] Coronavirus/COVID-19? No / Unsure 06/25/2022 10:01 AM CONDUIT INSTALLER documented as of this encounter Last Filed Vital Signs Vital Sign Reading Time Taken Comments Blood Pressure 122/82 07/02/2022 10:31 AM CONDUIT INSTALLER Pulse 104 07/02/2022 10:31 AM CONDUIT INSTALLER Temperature 37 ??C (98.6 ??F) 07/02/2022 10:31 AM CONDUIT INSTALLER Respiratory Rate 18 07/02/2022 10:31 AM CONDUIT INSTALLER Oxygen Saturation 98% 07/02/2022 10:31 AM CONDUIT INSTALLER Inhaled Oxygen Concentration - - Weight 70.3 kg (155 lb) 07/02/2022 10:31 AM CONDUIT INSTALLER Height 157.5 cm (5' 2) 07/02/2022 10:31 AM CONDUIT INSTALLER Body Mass Index 28.35 07/02/2022 10:31 AM CONDUIT INSTALLER documented in this encounter Functional Status Functional [...] Yosi Bustamante MD - 07/02/2022 10:31 AM CONDUIT INSTALLER If you have an Insulin Pump, Meter or a Continuous Glucose Monitor, please BRING IT TO EVERY VISIT and present it to the Endo rooming staff when you arrive in clinic. APPOINTMENTS: option 1 or you can send a Taltopia message. Normal business hours are from 8:00 am to 4:30 pm Wednesday through Wednesday. Fax# is [phone]. REFILL REQUESTS: contact your pharmacy who will reach out to us. If you have changes to your prescription, you will need to contact us directly at [phone] and select option 3 or send your [employer] Taltopia message. We request that all prescription refills be requested during regular office phone hours. If your prescription requires a prior authorization, it may take several days for us to get approval from [employer] company before we can refill your prescription. Please do not wait until you are completely out before contacting us. MEDICAL EMERGENCY: Please call 911 or go to the nearest Emergency Room. After hours urgent calls that cannot wait until phone lines are open on the next business day are given to the Carbon Dioxide Operator physician seed production field supervisor. Please call [phone] and identify yourself as a patient in our practice needing to speak to Carbon Dioxide Operator. The ordering box operator will contact the physician seed production field supervisor. You can generally expect a return call within 30 minutes. On weekends, physicians are seeing hospitalized patients and there may be a longer wait. Test and laboratory results: Our practice typically reports lab and test results through letters orMyChart. Please allow 10 days from when your tests are completed to receive the results in the mail. Labs performed outside of [facility] facility, [facility] or [facility] may delay the results getting to us. Please contact the lab and request that they are faxed to us at [phone]. IF GOING TO [facility] or [facility]- TAKE LAB ORDER WITH YOU or they may turn you away [facility] missed appointment policy is: Patients with 3 consecutively missed appointments OR 3 missed appointments in a 12 month period will no longer be seen by Endocrinology. They will be asked to seek consultation outside of [facility]. A missed appointment is defined as: Arriving to a scheduled appointment too late to be seen (Patients who arrive to clinic later than their scheduled appointment time may not be seen) Not showing up or calling 24-48 hours prior to an appointment An appointment cancelled less than 24 hours in advance ADDRESS: [address] [place] [address] Website: [email or web address] for additional information about [facility] and an interactive health encyclopedia. [...] #3. Most chocolate (due to milk content). [place] powder and some dark chocolates are allowed. [...] chicken or beef, oil and vinegar dressing [place] with Matzo crackers, plain peanut butter, jelly UIT INSTALLER documented in this encounter Progress Notes * [...] - 0.9 IU/mL <1.0 <1.0 <1.0 <1.0 [facility] Reference Range & Units 08/21/20 04:25 09/11/20 [...] TWICE A DAY, Disp: 60 capsule, Rfl:11 [id number] PO, Take by mouth once daily, Disp: [...] fluticasone propionate (FLONASE) 50 MCG/ACT nasal spray, [place] 2 (two) sprays into each nostril once daily, Disp: 48 g, Rfl: 0 gabapentin (Neurontin) 300 MG capsule, Take 1 (one) capsule by mouth 3 times daily, Disp: 90 capsule, Rfl: 5 [id number] PO, Take 1 tablet by mouth 3 [...] ?? Most chocolate (due to milk content). [place] powder and some dark chocolates are allowed. [...] chicken or beef, oil and vinegar dressing [place] with Matzo crackers, plain peanut butter, jelly [...] Division of Endocrinology Department of Internal Medicine UIT INSTALLER documented in this encounter Procedure Notes * Yosi Bustamante MD - 07/02/2022 11:41 AM CSTAssociated Order(s): PROC ULTRASOUND THYROID W/WO FNA BIOPSY Procedure(s): MD US SOFT TISS HEAD&NCK R-T IMG Pre-Procedure [...] ?? Most chocolate (due to milk content). [place] powder and some dark chocolates are allowed. [...] chicken or beef, oil and vinegar dressing [place] with Matzo crackers, plain peanut butter, jelly Yosi Bustamante MD Division of Endocrinology UIT INSTALLER documented in this encounter Plan of Treatment Upcoming Encounters Date Type Department Care Team (Late st Contact Info) Description 08/02/2024 2:20 PM CONDUIT INSTALLER Appointment [facility] [address] [place] [address] 08/02/2024 3:00 PM CONDUIT INSTALLER Office Visit [facility] - Hematology/Oncology [facility] [place] [phone] Remi Beckett MD [address] [place] [phone] 08/18/2024 1:45 PM CONDUIT INSTALLER Office Visit [facility] - ENT [address] [place] [phone] Neri Delgado MD [address] [place] [address] 08/30/2024 2:20 PM CONDUIT INSTALLER Appointment [facility] [address] [place] [address] documented as of this encounter Procedures Procedure Name Priority Date/Time Associated Diagnosis Comments MD US SOFT TISS HEAD&NCK R-T IMG Routine 07/02/2022 11:41 AM CONDUIT INSTALLER Postoperative hypothyroidism Thyroid cancer (HCC) Hypocalcemia Other hypoparathyroidism (CMS/HCC) documented in this encounter Results * NM THYROID WHOLE BODY SCAN (08/19/2022 3:24 PM CONDUIT INSTALLER) Anatomical Region Laterality Modality Chest Nuclear Medicine 08/19/2022 3:55 PM CONDUIT INSTALLER Impressions 08/19/2022 4:38 PM CONDUIT INSTALLER Impression: Focal uptake in anteriorly in the left aspect of the mid cervical spine, suggestive of metastatic disease. Further evaluation with MRI cervical spine is recommended to better evaluate the site of the recurrence and the proximity to the spinal cord. Results discussed with Dr. Bustamante by Dr. Sy on 08/19/2022 at 3:35 PM. > Dictated by Donald Mayer MD (Video Game Creator) 08/19/2022 4:15 PM Tiesha Mckeon DO have personally reviewed and interpreted this examination/study. > Interpreting Provider: Tiesha Sy DO on 08/19/2022 4:38 PM Narrative 08/19/2022 4:38 PM CONDUIT INSTALLER PROCEDURE: ??NM THYROID WHOLE BODY SCAN, NM TUMOR LOCAL SPECT CT, DATE/TIME OF EXAM: ??08/19/2022 3:24 PM, LOCATION ??[facility] INDICATION: E89.0: Postoperative hypothyroidism C73: Thyroid [...] CT,DATE/TIME OF EXAM: 08/19/2022 3:24 PM, LOCATION [facility] INDICATION: E89.0: Postoperative hypothyroidism C73: Thyroid [...] PM. > Dictated by Donald Mayer MD (Video Game Creator) 08/19/2022 4:15 PM ITiesha DO have personally reviewed and interpreted this examination/study. > Interpreting Provider: Tiesha Sy DO on 08/19/2022 4:38 PM Yosi Bustamante MD NM ORDERABLES * MD US SOFT TISS HEAD&NCK R-T IMG (07/02/2022 11:41 AM CONDUIT INSTALLER) Narrative Yosi Bustamante MD - 07/02/2022 11:41 AM CONDUIT INSTALLER Yosi Bustamante MD ? 07/02/2022 11:47 AM [...] ?? Most chocolate (due to milk content). ??[place] powder and some dark chocolates are allowed. [...] chicken or beef, oil and vinegar dressing [place] with Matzo crackers, plain peanut butter, jelly [...] (HCC) documented in this encounter Care Teams Instructor Technical Training Relationship Specialty Start Date End Date Joseph Manzanares MD [address] [place] [phone] PCP - General Internal Medicine 06/10/22 07/14/22 Adriana Adams DO [address] [place] [address] Resident - PCP Internal Medicine 04/06/22 01/12/23 documented as of this encounter
--- OUTSIDE RECORDS SUMMARY | 2024-07-26 08:35 | XMS_ITS | Encounter Summary ---
Author Organization [facility] Address [address] [place] [address] Care Team Providers Care Industrial Economist Name Role Phone Adriana Adams DO Unavailable Eliane Tillman MD Primary Care Provider [phone] Reason for Visit * Reason Onset Date Comments MEDICATION REFILL 05/11/2022 Encounter Details Date Type Department Care Team (Late st Contact Info) Description 05/11/2022 Refill [facility] [address] [place] [address] Adriana Adams DO [address] [place] [phone] MEDICATION REFILL Social History Tobacco Use Types [...] Encounter - Lexii Birch, RN - 05/11/2022 10:57 AM CST Calling for Protonix and atorvastatin. Protonix added to the refill request. Refill Request Brisa Hogan ELE: 12/18/21 NOV scheduled: 06/10/2022 Sunq NDR LRF: 01/12/22 Qty [...] TABLET BY MOUTH ONCE DAILY FOR STOMACH CE MESSENGER HELPER * Telephone Encounter - Jennifer Galo - [...] 1 TABLET BY MOUTH EVERYDAY AT BEDTIME CE MESSENGER HELPER documented in this encounter Plan of Treatment Upcoming Encounters Date Type Department Care Team (Late st Contact Info) Description 08/02/2024 2:20 PM OFFICE MESSENGER HELPER Appointment [address] [address] 08/02/2024 3:00 PM OFFICE MESSENGER HELPER Office Visit [facility] - Hematology/Oncology [address] [place] [phone] Remi Beckett MD [address] [place] [phone] 08/18/2024 1:45 PM OFFICE MESSENGER HELPER Office Visit [facility] - ENT [address] [place] [phone] Neri Delgado MD [address] [place] [address] 08/30/2024 2:20 PM OFFICE MESSENGER HELPER Appointment [facility] [address] [place] [address] documented as of this encounter Visit Diagnoses Diagnosis Hyperlipidemia, unspecified hyperlipidemia type Gastroesophageal reflux disease, unspecified whether esophagitis present documented in this encounter Care Teams Industrial Economist Relationship Specialty Start Date End Date Eliane Tillman MD [address] [place] [phone] PCP - General 05/11/22 06/09/22 Adriana Adams DO [facility] [place] [phone] Resident - PCP Internal Medicine 04/06/22 01/12/23 documented as of this encounter
--- OUTSIDE RECORDS SUMMARY | 2024-07-26 08:35 | XMS_ITS | Encounter Summary ---
Author Organization [facility] Health Address [address] [facility] [place] [address] Care Team Providers Care Engineering And Operations Director Name Role Phone Taniya Grimes MD Primary [...] st Contact Info) Description 08/02/2024 2:20 PM PLANNING ASSISTANT Appointment [facility] [address] [place] [address] 08/02/2024 3:00 PM PLANNING ASSISTANT Office Visit [facility] - Hematology/Oncology [address] [place] [address] Remi Beckett MD [address] [place] [address] 08/18/2024 1:45 PM PLANNING ASSISTANT Office Visit [facility] - ENT [address] [place] [phone] Neri Delgado MD [address] [place] [address] 08/30/2024 2:20 PM PLANNING ASSISTANT Appointment [facility] [address] [place] [address] documented as of this encounter Visit Diagnoses Not on filedocumented in this encounter Care Teams Engineering And Operations Director Relationship Specialty Start Date End Date Taniya Grimes MD [address] [place] [address] [address] DIV [place] [phone] PCP - General 07/01/20 05/10/22 Adriana Adams DO [address] [place] [phone] Resident - PCP Internal Medicine 04/06/22 01/12/23 documented as of this encounter
--- OUTSIDE RECORDS SUMMARY | 2024-07-26 08:35 | XMS_ITS | Encounter Summary ---
Author Organization [facility] Health Address [address] [facility] [place] [address] Care Team Providers Care Interpretative Dancer Name Role Phone Taniya Grimes MD Primary Care Provider [phone] Adriana Adams DO Unavailable Encounter Details Date Type Department Care Team (Latest Contact Info) Description 04/10/2022 1:50 PM CDT - 04/10/2022 2:52 PM CDT Hospital Encounter [facility]STIC [facility] CSM [address] [facility] [place] [address] Mary Beth Lauren MD [address] [facility] [address] [place] [address] Discharge Disposition: Home or Self [...] A DAY 60 capsule 11 02/22/2022 05/28/2023 [id number] PO Take by mouth once daily 06/13/2023 [...] fluticasone propionate (FLONASE) 50 MCG/ACT nasal spray [place] 2 (two) sprays into each nostril once daily 48 g 10/20/2021 11/25/2022 gabapentin (Neurontin) 300 MG capsuleIndications:Nicole favio osteoarthritis of left hip Take 1 (one) capsule by mouth 3 times daily 90 capsule 5 04/06/2022 11/19/2022 [id number] -HYAL PO Take 1 tablet by mouth [...] st Contact Info) Description 08/02/2024 2:20 PM ACROBATIC RIGGER Appointment [facility] [address] [place] [address] 08/02/2024 3:00 PM ACROBATIC RIGGER Office Visit [facility] - Hematology/Oncology [address] [place] [phone] Remi Beckett MD [address] [place] [address] 08/18/2024 1:45 PM ACROBATIC RIGGER Office Visit [facility] - ENT [address] [place] [address] [place] [address] [place] [address] 08/30/2024 2:20 PM ACROBATIC RIGGER Appointment [facility] [address] [place] [address] documented as of this encounter Procedures Procedure [...] DATE/TIME OF EXAM: ??04/10/2022 1:55 PM, LOCATION ??[facility] INDICATION: M25.512: Left shoulder pain, unspecified chronicity [...] DATE/TIME OF EXAM: 04/10/2022 1:55 PM, LOCATION [facility] INDICATION: M25.512: Left shoulder pain, unspecified chronicity [...] chronicity documented in this encounter Care Teams Interpretative Dancer Relationship Specialty Start Date End Date Taniya Grimes MD [address] [place] [address] PCP - General 07/01/20 05/10/22 Adriana Adams DO [address] [place] [address] Resident - PCP Internal Medicine 04/06/22 01/12/23 documented as of this encounter
--- OUTSIDE RECORDS SUMMARY | 2024-07-26 08:35 | XMS_ITS | Encounter Summary ---
Author Organization [facility] Health Address [address] [facility] [place] [address] Care Team Providers Care Irrigation Technician Name Role Phone Taniya Grimes MD Primary Care Provider Adriana Adams DO Unavailable Encounter Details Date Type Department Care Team (Latest Contact Info) Description 04/10/2022 2:53 PM CDT - 04/10/2022 11:59 PM CDT Hospital Encounter [facility] RAD CSM [address] [facility] [place] [address] Mary Beth Lauren MD [address] [facility] [address] [place] [address] Discharge Disposition: Home or Self [...] A DAY 60 capsule 11 02/22/2022 05/28/2023 [id number] PO Take by mouth once daily 06/13/2023 [...] fluticasone propionate (FLONASE) 50 MCG/ACT nasal spray [place] 2 (two) sprays into each nostril once daily 48 g 10/20/2021 11/25/2022 gabapentin (Neurontin) 300 MG capsuleIndications:Nicole favio osteoarthritis of left hip Take 1 (one) capsule by mouth 3 times daily 90 capsule 5 04/06/2022 11/19/2022 [id number]-C -HYAL PO Take 1 tablet by mouth 3 times daily 06/13/2023 levothyroxine (SYNTHROID) 112 MCG tabletIndications:Post operative hypothyroidism Take 1 (one) tablet by mouth once daily 90 tablet 4 10/08/2021 07/06/2022 methylPREDNISolone (Medrol Dosepak) 4 MG tablet Take by mouth as directed Follow package insert dosing for six day supply. 21 tablet 04/10/2022 09/14/2022 [facility] Natural Products (NEURIVA PO) Take 2 capsules [...] st Contact Info) Description 08/02/2024 2:20 PM INSURANCE COUNSEL Appointment [address] [address] 08/02/2024 3:00 PM INSURANCE COUNSEL Office Visit [facility] - Hematology/Oncology [address] [place] [phone] Remi Beckett MD [address] [place] [phone] 08/18/2024 1:45 PM INSURANCE COUNSEL Office Visit [facility] - ENT [address] [place] [phone] Neri Delgado MD [address] [place] [address] 08/30/2024 2:20 PM INSURANCE COUNSEL Appointment [facility] [address] [place] [address] documented as of this encounter Procedures Procedure [...] DATE/TIME OF EXAM: ??04/10/2022 3:00 PM, LOCATION ??[facility] INDICATION: M54.2: Neck pain ADDITIONAL CLINICAL INFORMATION: [...] 3VW, DATE/TIME OF EXAM: 23:00 PM, LOCATION [facility] INDICATION: M54.2: Neck pain ADDITIONAL CLINICAL INFORMATION: [...] Cervicalgia documented in this encounter Care Teams Irrigation Technician Relationship Specialty Start Date End Date Taniya Grimes MD [address] [facility] [address] [facility] [place] [address] PCP - General 07/01/20 05/10/22 Adriana Adams DO [address] [place] [address] Resident - PCP Internal Medicine 04/06/22 01/12/23 documented as of this encounter
--- OUTSIDE RECORDS SUMMARY | 2024-07-26 08:35 | XMS_ITS | Encounter Summary ---
Author Organization [facility] Health Address [address] [place] [address] Care Team Providers Care Global Project Manager Name Role Phone Taniya Grimes MD Primary Care Provider Adriana Adams DO Unavailable Encounter Details Date Type Department Care Team (Latest Contact Info) Description 05/01/2022 1:08 PM CDT - 05/01/2022 11:59 PM CDT Hospital Encounter [facility] OP DRAW STATION [address] [place] [phone] Discharge Disposition: Home or Self Care Social [...] A DAY 60 capsule 11 02/22/2022 05/28/2023 FVYLFCO-GEMATFOTI-BFHK PO Take by mouth once daily 06/13/2023 [...] fluticasone propionate (FLONASE) 50 MCG/ACT nasal spray [place] 2 (two) sprays into each nostril once daily 48 g 10/20/2021 11/25/2022 gabapentin (Neurontin) 300 MG capsuleIndications:Nicole stahl osteoarthritis of left hip Take 1 (one) capsule by mouth 3 times daily 90 capsule 5 04/06/2022 11/19/2022 [id number]-FFFJUCKGV-JAI-C -HYAL PO Take 1 tablet by mouth 3 times daily 06/13/2023 levothyroxine (SYNTHROID) 112 MCG tabletIndications:Post operative hypothyroidism Take 1 (one) tablet by mouth once daily 90 tablet 4 10/08/2021 07/06/2022 methylPREDNISolone (Medrol Dosepak) 4 MG tablet Take by mouth as directed Follow package insert dosing for six day supply. 21 tablet 04/10/2022 09/14/2022 [facility] Natural Products (NEURIVA PO) Take 2 capsules [...] st Contact Info) Description 08/02/2024 2:20 PM FOXING CLOSER Appointment [facility] [address] [place] [address] 08/02/2024 3:00 PM FOXING CLOSER Office Visit [facility] - Hematology/Oncology [address] [place] [phone] Remi Beckett MD [address] [place] [address] 08/18/2024 1:45 PM FOXING CLOSER Office Visit [facility] - ENT [address] [place] [address] Neri Delgado MD [address] [place] [address] 08/30/2024 2:20 PM FOXING CLOSER Appointment [facility] [address] [place] [address] documented as of this encounter Procedures Procedure [...] BY ANTONIETA RFLXED (05/01/2022 1:17 PM CDT) Thyroglobulin by ANTONIETA 151.8(H) 1.5 - 38.5 ng/mL 05/05/2022 1:06 AM CDT [facility] ([facility]) Comment: According to the National Academy [...] is 0.1 ng/mL Thyroglobulin measured by Lisbet Jefferson Immunometric Assay Blood BLOOD SPECIMEN / Unknown Lab Venipuncture / Unknown 05/01/2022 1:17 PM CDT 05/01/2022 1:42 PM CDT Narrative [facility] ([facility]) - 05/05/2022 1:06 AM CDT Performed at: ??01 - [address] ??[id number] Epitaxial Reactor Technician: Oral Melendez PhD, Phone: ??[phone] Yosi Bustamante MD LAB - CHEMISTRY ORD ERABLES Performing Organization Address [facility] de Phone Number [facility] ([facility]) [address] [place] [phone], [facility] * THYROGLOBULIN REFLEX PROFILE (05/01/2022 1:17 PM CDT) Thyroglobulin Antibody <1.0 0.0 - 0.9 IU/mL 05/05/2022 1:06 AM CDT [facility] ([facility]) Comment:Thyroglobulin Antibo dy measured by Lisbet Jefferson Methodology Blood BLOOD SPECIMEN / Unknown Lab Venipuncture / Unknown 05/01/2022 1:17 PM CDT 05/01/2022 1:42 PM CDT Narrative [facility] ([facility]) - 05/05/2022 1:06 AM CDT Performed at: ??01 - [address] ??[id number] Epitaxial Reactor Technician: Oral Melendez PhD, Phone: ??[phone] Yosi Bustamante MD LAB - CHEMISTRY ORD ERABLES Performing Organization Address [facility] Co de Phone Number [facility] ([facility]) [address] [place] [address], [facility] * VITAMIN D 25-HYDROXY (05/01/2022 1:17 PM CDT) [facility] Vitamin D, 25 Hydroxy 31.0 30.0 - 80.0 ng/mL 05/01/2022 2:38 PM CDT [facility] [...] - CHEMISTRY ORD ERABLES Performing Organization Address [facility]/State/ZIP Co de Phone Number [facility] [address] [place] [phone], [facility] [phone] * (ABNORMAL) RENAL FUNCTION PANEL (05/01/2022 1:17 PM CDT) [facility] BUN 24 7 - 26 mg/dL 05/01/2022 2:20 PM CDT [facility] Creatinine 1.05(H) 0.56 - 0.96 mg/dL 05/01/2022 2:20 PM CDT [facility] Sodium 135(L) 136 - 145 mmol/L 05/01/2022 2:20 PM [facility] Potassium 4.3 3.5 - 4.5 mmol/L 05/01/2022 2:20 PM [facility] Chloride 99 98 - 107 mmol/L 05/01/2022 2:20 PM [facility] CO2 25 22 - 29 mmol/L 05/01/2022 2:20 PM [facility] Glucose 97 70 - 115 mg/dL 05/01/2022 2:20 PM [facility] Albumin 4.0 3.4 - 5.0 g/dL 05/01/2022 2:20 PM [facility] Calcium 9.3 8.4 - 10.2 mg/dL 05/01/2022 2:20 PM [facility] Phosphorus 5.1 2.9 - 5.1 mg/dL 05/01/2022 2:20 PM [facility] Anion Gap 15 8 - 18 05/01/2022 2:20 PM [facility] BUN/Creatinine Ratio 23 7 - 23 05/01/2022 2:20 PM [facility] Osmolality Calculated 284 270 - 300 mOsm/kg 05/01/2022 2:20 PM [facility] eGFR by CKD-EPI 60(L) >=90 mL/min/1.7 3 m2 05/01/2022 2:20 PM [facility] Blood BLOOD SPECIMEN / Unknown Lab Venipuncture / Unknown 05/01/2022 1:17 PM CDT 05/01/2022 1:51 PM CDT Yosi Bustamante MD LAB - CHEMISTRY ORD ERABLES [facility] [address] [place] [phone], [facility] [phone] * TSH REFLEX FREE T4 (05/01/2022 1:17 PM CDT) TSH 0.769 0.350 - 4.940 uIU/mL 05/01/2022 2:38 PM [facility] Blood BLOOD SPECIMEN / Unknown Lab Venipuncture / Unknown 05/01/2022 1:17 PM CDT 05/01/2022 1:51 PM CDT Yosi Bustamante MD LAB - CHEMISTRY ORD ERABLES [facility] [address] [place] [address], [facility] [phone] documented in this encounter Visit Diagnoses Diagnosis Postoperative hypothyroidism- Primary Postsurgical hypothyroidism Thyroid cancer (HCC) Malignant neoplasm of thyroid gland Hypocalcemia Other hypoparathyroidism (HCC) documented in this encounter Care Teams Global Project Manager Relationship Specialty Start Date End Date Taniya Grimes MD [facility] [place] [phone] PCP - General 07/01/20 05/10/22 Adriana Adams DO [address] [place] [phone] Resident - PCP Internal Medicine 04/06/22 01/12/23 documented as of this encounter
--- OUTSIDE RECORDS SUMMARY | 2024-07-26 08:35 | XMS_ITS | Encounter Summary ---
Author Organization [facility] Health Address [address] [place] [address] Care Team Providers Care Regulatory Affairs Coordinator Name Role Phone Taniya Grimes MD Primary Care Provider Adriana Adams DO Unavailable Eliane Tillman MD Primary Care Provider [phone] Joseph Manzanares MD Primary Care Provider Taniya Grimes MD Primary Care Provider Reason for Visit * Reason Comments Shoulder Pain Encounter Details Date Type Department Care Team (Late st Contact Info) Description 04/10/2022 1:45 PM CDT Office Visit [facility] [address] [place] [address], [place] [address] Mary Beth Lauren MD [address] [place] [address] [address] [place] [address] Neck pain (Primary Dx) Social [...] Coronavirus/COVID-19? No / Unsure 06/25/2022 10:01 AM TAX PREPARER documented as of this encounter Functional Status [...] survey that will be sent to you.* [facility] Orthopaedic office contact information: [facility] [address] [facility], [address] [facility], [place] [address] [facility] [address] [place] [address]. [phone] Please do not hesitate to contact me with questions regarding her or any other patient in the future. Our clinical nurse, Liliane Rivera can be reached at or [email or web address] Sincerely, Mary Beth Lauren MD documented in this encounter Progress Notes * Mary Beth Lauren MD - 04/10/2022 2:16 PM CDT Images from the original note were not included. Mary Beth Lauren MD [facility] Orthopa[facility] Sports Medicine Adult and [...] TWICE A DAY 60 capsule 11 ??? GAHQXIP-MCHWEBDTT-SAQA PO Take by mouth once daily ??? [...] fluticasone propionate (FLONASE) 50 MCG/ACT nasal spray [place] 2 (two) sprays into each nostril once daily 48 g 0 ??? gabapentin (Neurontin) 300 MG capsule Take 1 (one) capsule by mouth 3 times daily 90 capsule 5 ??? VAWRIW-LPDPTXLUI-PPM-C-HYAL PO Take 1 tablet by mouth 3 [...] licensed medical personnel including physician assistants, nurses, surgical services director, and orthopaedic residents. Questions were invited and [...] day supply. Dispense: 21 tablet Refill: 0 Ednton Merrill MS4 I personally saw, evaluated, examined [...] at . Sincerely, Mary Beth Lauren MD PREPARER documented in this encounter Plan of Treatment Upcoming Encounters Date Type Department Care Team (Late st Contact Info) Description 08/02/2024 2:20 PM TAX PREPARER Appointment [facility] [address] [place] [address] 08/02/2024 3:00 PM TAX PREPARER Office Visit [facility] - Hematology/Oncology [address] [place] [phone] Remi Beckett MD [address] [place] [phone] 08/18/2024 1:45 PM TAX PREPARER Office Visit [facility] - ENT [address] [place] [phone] Neri Delgado MD [address] [place] [address] 08/30/2024 2:20 PM TAX PREPARER Appointment [facility] [address] [place] [address] documented as of this encounter Results * [...] DATE/TIME OF EXAM: ??04/10/2022 3:00 PM, LOCATION [facility] INDICATION: M54.2: Neck pain ADDITIONAL CLINICAL INFORMATION: [...] 3VW, DATE/TIME OF EXAM: 23:00 PM, LOCATION [facility] INDICATION: M54.2: Neck pain ADDITIONAL CLINICAL INFORMATION: [...] Cervicalgia documented in this encounter Care Teams Regulatory Affairs Coordinator Relationship Specialty Start Date End Date Taniya Grimes MD [address] OF [facility] [place] [phone] PCP - General 07/01/20 05/10/22 Eliane Tillman MD [address] [place] [phone] PCP - General 05/11/22 06/09/22 Joseph Manzanares MD [facility]5 [place] [phone] PCP - General Internal Medicine 06/10/22 07/14/22 Taniya Grimes MD [address] [place] [phone] PCP - General 07/15/22 10/06/22 Adriana Adams DO [facility] [place] [phone] Resident - PCP Internal Medicine 04/06/22 01/12/23 documented as of this encounter
--- OUTSIDE RECORDS SUMMARY | 2024-07-26 08:35 | XMS_ITS | Encounter Summary ---
Author Organization [facility] Health Address [address] [facility] [place] [address] Care Team Providers Care Basket Operator Name Role Phone Adriana Adams DO Unavailable Eliane Tillman MD Primary Care Provider [phone] Reason for Visit * Reason Onset Date Comments Medication Issue 05/11/2022 Encounter Details Date Type Department Care Team (Late st Contact Info) Description 05/11/2022 Telephone [facility] Internal Medicine [address] [facility] [place] [phone] Eliane Tillman MD [address] [place] [phone] Medication Issue Social History Tobacco Use [...] RN - 05/11/2022 11:27 AM CST Phoned [facility] and spoke to Lisa. She states they [...] find the med and request an override. ICE OBSERVER CHIEF * Telephone Encounter - Lexii Birch RN - 05/11/2022 11:07 AM CST Pt stating she had he celebrex refilled but can't locate the bottle. She said she told [facility] but cannot get this refilled till July it is too soon to fill. Will need to call [facility] and see they can request an override of thee medication due to losing the med. ICE OBSERVER CHIEF documented in this encounter Plan of Treatment Upcoming Encounters Date Type Department Care Team (Late st Contact Info) Description 08/02/2024 2:20 PM SERVICE OBSERVER CHIEF Appointment [facility] [address] [place] [address] 08/02/2024 3:00 PM SERVICE OBSERVER CHIEF Office Visit [facility] - Hematology/Oncology [address] [place] [phone] Remi Beckett MD [address] [place] [address] 08/18/2024 1:45 PM SERVICE OBSERVER CHIEF Office Visit [facility] - ENT [address] [place] [phone] Neri Delgado MD [address] [place] [address] 08/30/2024 2:20 PM SERVICE OBSERVER CHIEF Appointment [facility] [address] [place] [address] documented as of this encounter Visit Diagnoses Not on filedocumented in this encounter Care Teams Basket Operator Relationship Specialty Start Date End Date Eliane Tillman MD [facility]8 [place] [phone] PCP - General 05/11/22 06/09/22 Adriana Adams DO [facility] [place] [phone] Resident - PCP Internal Medicine 04/06/22 01/12/23 documented as of this encounter
--- OUTSIDE RECORDS SUMMARY | 2024-07-26 08:35 | XMS_ITS | Encounter Summary ---
Author Organization [facility] Health Address [address] [facility] [place] [address] Care Team Providers Care Customs Consultant Name Role Phone Adriana Adams DO Unavailable Eliane Tillman MD Primary Care Provider [phone] Reason for Visit * Reason Onset Date Comments MEDICATION REFILL 05/13/2022 Encounter Details Date Type Department Care Team (Late st Contact Info) Description 05/13/2022 Refill [facility] [address] [place] [address] Adriana Adams DO [address] [place] [phone] MEDICATION REFILL Social History Tobacco Use Types [...] Mellisa Vargas LPN - 05/13/2022 12:45 PM PLASTIC DIE MAKER APPRENTICE Refill Request Brisa Woody Edison ELE: 6.16.22 Keyanna NOV scheduled: 06/10/2022 LRF: 1.19.22 Qty Disp: 30 # of refills: 3 Allergies: Allergies Allergen Reactions ??? Kiwi Extract Anaphylaxis ??? Shellfish Allergy Other Passed out after eating lobster but can eat shrimp and crab Pended Medication Order: Requested Prescriptions Pending Prescriptions Disp Refills ??? atorvastatin (Lipitor) 40 MG tablet 30 tablet 3 Sig: TAKE 1 TABLET BY MOUTH EVERYDAY AT BEDTIME TIC DIE MAKER APPRENTICE documented in this encounter Plan of Treatment Upcoming Encounters Date Type Department Care Team (Late st Contact Info) Description 08/02/2024 2:20 PM PLASTIC DIE MAKER APPRENTICE Appointment [facility] [address] [place] [address] 08/02/2024 3:00 PM PLASTIC DIE MAKER APPRENTICE Office Visit [facility] - Hematology/Oncology [address] [place] [phone] Remi Beckett MD [address] [place] [phone] 08/18/2024 1:45 PM PLASTIC DIE MAKER APPRENTICE Office Visit [facility] [address] [place] [phone] Neri Delgado MD [address] [place] [address] 08/30/2024 2:20 PM PLASTIC DIE MAKER APPRENTICE Appointment [facility] [address] [place] [address] documented as of this encounter Visit Diagnoses Diagnosis Hyperlipidemia, unspecified hyperlipidemia type documented in this encounter Care Teams Customs Consultant Relationship Specialty Start Date End Date Eliane Tillman MD [address] [place] [phone] PCP - General 05/11/22 06/09/22 Adriana Adams DO [address] [place] [phone] Resident - PCP Internal Medicine 04/06/22 01/12/23 documented as of this encounter
--- OUTSIDE RECORDS SUMMARY | 2024-07-26 08:35 | XMS_ITS | Encounter Summary ---
Author Organization [facility] Health Address [address] [facility] [place] [address] Care Team Providers Care Weigher And Mixer Name Role Phone Adriana Adams DO Unavailable Eliane Tillman MD Primary Care Provider [phone] Reason for Visit * Reason Onset Date Comments MEDICATION REFILL 05/12/2022 Encounter Opened In Error 05/12/2022 Encounter Details Date Type Department Care Team (Late st Contact Info) Description 05/12/2022 Refill [facility] [address] [facility] [place] [phone] Adriana Adams DO [address] [place] [phone] MEDICATION REFILL; Encounter Opened In Error Social [...] Sita Cotter RN - 05/12/2022 11:43 AM RECREATIONAL THERAPY AIDE Brisa Hogan encounter was opened in error. Please disregard any activity associated with this encounter. EATIONAL THERAPY AIDE documented in this encounter Plan of Treatment Upcoming Encounters Date Type Department Care Team (Late st Contact Info) Description 08/02/2024 2:20 PM RECREATIONAL THERAPY AIDE Appointment [facility] [address] [place] [address] 08/02/2024 3:00 PM RECREATIONAL THERAPY AIDE Office Visit [facility] - Hematology/Oncology [address] [place] [phone] Remi Beckett MD [address] [place] [phone] 08/18/2024 1:45 PM RECREATIONAL THERAPY AIDE Office Visit [facility] [address] [place] [phone] Neri Delgado MD [address] [place] [address] 08/30/2024 2:20 PM RECREATIONAL THERAPY AIDE Appointment [facility] [address] [place] [address] documented as of this encounter Visit Diagnoses Diagnosis ERRONEOUS ENCOUNTER--DISREGARD- Primary documented in this encounter Care Teams Weigher And Mixer Relationship Specialty Start Date End Date Eliane Tillman MD [address] [place] [phone] PCP - General 05/11/22 06/09/22 Adriana Adams DO [address] [place] [address] Resident - PCP Internal Medicine 04/06/22 01/12/23 documented as of this encounter
--- OUTSIDE RECORDS SUMMARY | 2024-07-26 08:35 | XMS_ITS | Encounter Summary ---
Author Organization [facility] Health Address [address] [place] [address] Care Team Providers Care Bat Lathe Operator Name Role Phone Adriana Adams DO Unavailable Eliane Tillman MD Primary Care Provider [phone] Joseph Manzanares MD Primary Care Provider Taniya Grimes MD Primary Care Provider Reason for Visit * Reason Onset Date Comments Follow-up 05/15/2022 Encounter Details Date Type Department Care Team (Late st Contact Info) Description 05/15/2022 Telephone [facility] Endocrinology, Diabetes and Metabolism [address] [place] [address], [facility] [place] [address] Yosi Bustamante MD [address] [place] [address] [place] [address] Follow-up Social History Tobacco Use [...] Coronavirus/COVID-19? No / Unsure 06/25/2022 10:01 AM SUPERINTENDENT GENERAL documented as of this encounter Functional Status [...] Kassie Rand RN - 05/15/2022 2:55 PM SUPERINTENDENT GENERAL Called pt about thyrogen protocol. Pt reported all the dates provided will work for her. Mailed documentation to pt for reference. RINTENDENT GENERAL documented in this encounter Plan of Treatment Upcoming Encounters Date Type Department Care Team (Late st Contact Info) Description 08/02/2024 2:20 PM SUPERINTENDENT GENERAL Appointment [facility] [address] [place] [address] 08/02/2024 3:00 PM SUPERINTENDENT GENERAL Office Visit [facility] - Hematology/Oncology [address] [place] [phone] Remi Beckett MD [address] [place] [phone] 08/18/2024 1:45 PM SUPERINTENDENT GENERAL Office Visit [facility] E[facility] [address] [place] [phone] Neri Delgado MD [address] [place] [address] 08/30/2024 2:20 PM SUPERINTENDENT GENERAL Appointment [facility] [address] [place] [address] documented as of this encounter Visit Diagnoses Not on filedocumented in this encounter Care Teams Bat Lathe Operator Relationship Specialty Start Date End Date Eliane Tillman MD [address] [place] [phone] PCP - General 05/11/22 06/09/22 Joseph Manzanares MD [address] [place] [phone] PCP - General Internal Medicine 06/10/22 07/14/22 Taniya Grimes MD [address] [place] [phone] PCP - General 07/15/22 10/06/22 Adriana Adams DO [address] [place] [phone] Resident - PCP Internal Medicine 04/06/22 01/12/23 documented as of this encounter
--- OUTSIDE RECORDS SUMMARY | 2024-07-26 08:35 | XMS_ITS | Encounter Summary ---
Author Organization [facility] Health Address [address] [place] [address] Care Team Providers Care Chain Maker Machine Name Role Phone Taniya Grimes MD Primary Care Provider [phone] Adriana Adams DO Unavailable Encounter Details Date Type Department Care Team (Late st Contact Info) Description 04/06/2022 Orders Only [facility] [address] [place] [address], [place] [address] Mary Beth Lauren MD [address] [place] [address] [address] [place] [address] Left shoulder pain, unspecified chronicity [...] st Contact Info) Description 08/02/2024 2:20 PM BUDGET ASSISTANT Appointment [facility] [address] [place] [address] 08/02/2024 3:00 PM BUDGET ASSISTANT Office Visit [facility] - Hematology/Oncology [address] [place] [phone] Remi Beckett MD [address] [place] [phone] 08/18/2024 1:45 PM BUDGET ASSISTANT Office Visit [facility] [address] [place] [phone] Neri Delgado MD [address] [place] [address] 08/30/2024 2:20 PM BUDGET ASSISTANT Appointment [facility] [address] [place] [address] documented as of this encounter Results * [...] DATE/TIME OF EXAM: ??04/10/2022 1:55 PM, LOCATION ??[facility] INDICATION: M25.512: Left shoulder pain, unspecified [...] DATE/TIME OF EXAM: 04/10/2022 1:55 PM, LOCATION [facility] INDICATION: M25.512: Left shoulder pain, unspecified [...] chronicity documented in this encounter Care Teams Chain Maker Machine Relationship Specialty Start Date End Date Taniya Grimes MD [address] [place] [address] PCP - General 07/01/20 05/10/22 Adriana Adams DO [address] [place] [address] Resident - PCP Internal Medicine 04/06/22 01/12/23 documented as of this encounter
--- OUTSIDE RECORDS SUMMARY | 2024-07-26 08:35 | XMS_ITS | Encounter Summary ---
Author Organization [facility] Health Address [address] [facility] [address] Care Team Providers Care Audit Tech Name Role Phone Taniya Grimes MD Primary Care Provider Adriana Adams DO Unavailable Reason for Visit * Reason Onset Date Comments MEDICATION REFILL 04/06/2022 Encounter Details Date Type Department Care Team (Late st Contact Info) Description 04/06/2022 Refill [facility] [address] [place] [phone] Adriana Adams DO [address] [place] [phone] MEDICATION REFILL Social History Tobacco Use Types [...] ELE: 6.16.22 Keyanna NOV scheduled: 06/10/2022 LRF: 4.6.22 Qty Disp: 90 # of refills: 5 [...] st Contact Info) Description 08/02/2024 2:20 PM BUFFER OPERATOR Appointment [facility] [address] [place] [address] 08/02/2024 3:00 PM BUFFER OPERATOR Office Visit [facility] - Hematology/Oncology [address] [place] [phone] Remi Beckett MD [address] [place] [phone] 08/18/2024 1:45 PM BUFFER OPERATOR Office Visit [facility] - ENT [address] [place] [phone] Neri Delgado MD [address] [place] [address] 08/30/2024 2:20 PM BUFFER OPERATOR Appointment [facility] [address] [place] [address] documented as of this encounter Visit Diagnoses Diagnosis Primary osteoarthritis of left hip Primary localized osteoarthrosis, pelvic region and thigh documented in this encounter Care Teams Audit Tech Relationship Specialty Start Date End Date Taniya Grimes MD [address] [place] [address] PCP - General 07/01/20 05/10/22 Adriana Adams DO [address] [place] [address] Resident - PCP Internal Medicine 04/06/22 01/12/23 documented as of this encounter
--- OUTSIDE RECORDS SUMMARY | 2024-07-26 08:36 | XMS_ITS | Encounter Summary ---
Author Organization [facility] Health Address [address] [facility] [place] [address] Care Team Providers Care Informatics Application Analyst Name Role Phone Taniya Grimes MD Primary Care Provider Rocio Barcenas MD Unavailable Reason for Visit * Reason Comments Thyroid Problem Encounter Details Date Type Department Care Team (Late st Contact Info) Description 01/28/2022 10:45 AM CDT Office Visit [facility] Otol[facility] [address] [place] [phone] Neri Delgado MD [address] [place] [address] Thyroid cancer (HCC) (Primary Dx) Social History [...] Patient Instructions * Patient Instructions* Yisel Crump Cat - 01/28/2022 10:53 AM CDT Thank you for visiting [facility] Otolaryngology - Head & Neck Surgery. [...] an appointment, please call our office at [phone] Wednesday through Wednesday from 8:30 am to4:30 pm. You can also request a routine appointment through your [employer] account. Prescription Refills Contact your pharmacy to [...] call the medical exchangeat and ask the label machine operator to page the ENT physician senior contract specialist. *Caller ID blocking service will need to be turned off for your call to be returned. We also specialize in Hearing Aids, Allergy testing, swallowing disorders, voice problems, cancer diagnosis, and so much more. Visit our website at [email or web address] for information about our practice and an interactive health encyclopedia. documented in this encounter Progress Notes * Justin Valverde MD - 01/28/2022 11:34 AM CDT CC: Chief Complaint Patient presents with ??? Thyroid Problem Diagnosis: Site: Thyroid Histology: PTC Stage: [id number] AJCC IVb Details: Positive margins, LVI +, [...] propionate (FLONASE) 50 MCG/ACT nasal spray [place] 2 (two) sprays into each nostril once daily ??? gabapentin (NEURONTIN) 300 MG capsule TAKE 1 CAPSULE BY MOUTH THREE TIMES A DAY ??? BCYRUG-JULAEMWHL-HUO-C-HYAL PO Take 1 tablet by mouth 3 [...] 12:24 PM CDTAssociated Order(s): PROC ENDOSCOPY-LARYNX Procedure(s): MI LARYNGOSCOPY,FLEX FIBER,DIAGNOSTIC Pre-Procedure Diagnose(s): Thyroid cancer (HCC) Procedure Note Anesthesia: Lidocaine 2% and Stone-Synephrine 1/2% Endoscopy Type: Flexible Qqptn-Hagoasswbpkekc-Oqmvkryjegrm Procedure Details: Informed consent was obtained. The patient was placed in the sitting position. After topical anesthesia and decongestion, the 4 mm laryngoscope was passed. The nasal cavities, nasopharynx, oropharynx, hypopharynx, and larynx were all examined. Vocal cords were examined during resp iration and phonation. Findings: -Right vocal cord is fixed, foreshortened, and slightly bowed. However the left vocal cord is ableto fully compensate and create good glottic closure. Disposition: The patient tolerated procedure well. Complications: None documented in this encounter Plan of Treatment Upcoming Encounters Date Type Department Care Team (Late st Contact Info) Description 08/02/2024 2:20 PM DRIER OPERATOR HELPER Appointment [facility] [address] [place] [address] 08/02/2024 3:00 PM DRIER OPERATOR HELPER Office Visit [facility] - Hematology/Oncology [address] [place] [phone] Remi Beckett MD [address] [place] [phone] 08/18/2024 1:45 PM DRIER OPERATOR HELPER Office Visit [facility] - ENT [address] [place] [phone] Neri Delgado MD [address] [place] [address] 08/30/2024 2:20 PM DRIER OPERATOR HELPER Appointment [facility] [address] [place] [address] documented as of this encounter Procedures Procedure Name Priority Date/Time Associated Diagnosis Comments MI LARYNGOSCOPY,FLEX FIBER,DIAGNOSTIC Routine 01/28/2022 12:24 PM CDT Thyroid cancer (HCC) documented in this encounter Results * MI LARYNGOSCOPY,FLEX FIBER,DIAGNOSTIC (01/28/2022 12:24 PM CDT) Narrative Neri Delgado MD - 01/28/2022 12:24 PM CDT Neri Delgado MD ? 01/28/2022 12:26 PM Procedure Note Anesthesia: Lidocaine 2% and Stone-Synephrine 1/2% Endoscopy Type: ??Flexible Pplqt-Oinjjigzmweoca-Ystwimlwkbao Procedure Details: ??Informed consent was obtained. ??The [...] gland documented in this encounter Care Teams Informatics Application Analyst Relationship Specialty Start Date End Date Taniya Grimes MD [address] OF [facility] [address] PCP - General 07/01/20 05/10/22 Rocio Barcenas MD [address] [facility] [place] [phone] Resident - PCP Internal Medicine 01/12/22 04/05/22 documented as of this encounter
--- OUTSIDE RECORDS SUMMARY | 2024-07-26 08:36 | XMS_ITS | Encounter Summary ---
Author Organization [facility] Health Address [address] [facility] [place] [address] Care Team Providers Care Bonderizer Name Role Phone Taniya Grimes MD Primary Care Provider [phone] Rocio Barcenas MD Unavailable Reason for Visit * Reason Onset Date Comments MEDICATION REFILL 01/14/2022 Encounter Details Date Type Department Care Team (Late st Contact Info) Description 01/14/2022 Refill [facility] [address] [place] [address], [place] [phone] Taniya Grimes MD [address] [place] [address] [place] [phone] MEDICATION REFILL Social History Tobacco Use Types [...] start the fills. Please advise. Refill Request Brisa Hogan ELE: 12.18.21May scheduled: 01.28.22 LRF: 11.19.20 [...] st Contact Info) Description 08/02/2024 2:20 PM FENCE MANUFACTURE SUPERVISOR Appointment [facility] [address] [place] [address] 08/02/2024 3:00 PM FENCE MANUFACTURE SUPERVISOR Office Visit [facility] - Hematology/Oncology [address] [place] [phone] Remi Beckett MD [address] [place] [phone] 08/18/2024 1:45 PM FENCE MANUFACTURE SUPERVISOR Office Visit [facility] - ENT [address] [place] [phone] Neri Delgado MD [address] [place] [address] 08/30/2024 2:20 PM FENCE MANUFACTURE SUPERVISOR Appointment [facility] [address] [place] [address] documented as of this encounter Visit Diagnoses Diagnosis Primary osteoarthritis of left hip- Primary Primary localized osteoarthrosis, pelvic region and thigh documented in this encounter Care Teams Bonderizer Relationship Specialty Start Date End Date Taniya Grimes MD [address] OF [facility] [place] [address] PCP - General 07/01/20 05/10/22 Rocio Barcenas MD [address] [facility] [place] [phone] Resident - PCP Internal Medicine 01/12/22 04/05/22 documented as of this encounter
--- OUTSIDE RECORDS SUMMARY | 2024-07-26 08:36 | XMS_ITS | Encounter Summary ---
Author Organization [facility] Address [address] [place] [address] Care Team Providers Care Lab Pack Chemist Name Role Phone Taniya Grimes MD Primary Care Provider Rocio Barcenas MD Unavailable Adriana Adams DO Unavailable Eliane Tillman MD Primary Care Provider [phone] Joseph Manzanares MD Primary Care Provider Taniya Grimes MD Primary Care Provider Joseph Manzanares MD Primary Care Provider Tiana Naylor DO Unavailable [phone] Tiana Naylor DO Primary Care Provider [phone] Joseph Manzanares MD Unavailable Yaya Villatoro MD Primary Care Provider [phone] Encounter Details Date Type Department Care Team (Late st Contact Info) Description 02/23/2022 Telephone [facility] Endocrinology, Diabetes and Metabolism [address] [place] [address], [facility] [place] [phone] Yosi Bustamante MD [address] [place] [address] [place] [address] Social History Tobacco Use Types Packs/Day Years [...] 06/12/2022. Please advise. Patient Call Back number: [phone] documented in this encounter Plan of Treatment Upcoming Encounters Date Type Department Care Team (Late st Contact Info) Description 08/02/2024 2:20 PM DIETARY CLERK Appointment [facility] [address] [place] [address] 08/02/2024 3:00 PM DIETARY CLERK Office Visit [facility] - Hematology/Oncology [address] [place] [phone] Remi Beckett MD [address] [place] [phone] 08/18/2024 1:45 PM DIETARY CLERK Office Visit [facility] - ENT [address] [place] [phone] Neri Delgado MD [address] [place] [address] 08/30/2024 2:20 PM DIETARY CLERK Appointment [facility] [address] [place] [address] documented as of this encounter Visit Diagnoses Not on filedocumented in this encounter Care Teams Lab Pack Chemist Relationship Specialty Start Date End Date Taniya Grimes MD [address] [place] [address] [address] [phone] PCP - General 07/01/20 05/10/22 Eliane Tillman MD [address] [place] [phone] PCP - General 05/11/22 06/09/22 Joseph Manzanares MD [address] [place] [phone] PCP - General Internal Medicine 06/10/22 07/14/22 Taniya Grimes MD [address] [place] [address] [address] DIV OF [facility] [place] [address] PCP - General 07/15/22 10/06/22 Joseph Manzanares MD [facility] [place] [phone] PCP - General Internal Medicine 10/07/22 04/20/23 Tiana Naylor, [address] [place] [address] PCP - General Internal Medicine 04/21/23 05/03/23 Yaya Villatoro MD [address] [facility] [address] [place] [phone] PCP - General Internal Medicine 05/04/23 Rocio Barcenas MD [address] [place] [phone] Resident - PCP Internal Medicine 01/12/22 04/05/22 Adriana Adams DO [address] [place] [phone] Resident - PCP Internal Medicine 04/06/22 01/12/23 Tiana Naylor DO [address] [facility] [place] [address] Resident - PCP Internal Medicine 01/13/23 04/20/23 Joseph Manzanares MD [address] [place] [phone] Internal Medicine 04/21/23 documented as of this encounter
--- OUTSIDE RECORDS SUMMARY | 2024-07-26 08:36 | XMS_ITS | Encounter Summary ---
Author Organization [facility] Health Address [address] [facility] [place] [address] Care Team Providers Care Sap Solution Manager Consultant Name Role Phone Marylu Marie DO Unavailable [phone] Taniya Grimes MD Primary Care Provider Encounter Details Date Type Department Care Team (Late st Contact Info) Description 12/25/2021 Orders Only [facility] Endocrinology, Diabetes and Metabolism [address] [place] [address], [place] [phone] Yosi Bustamante MD [address] [place] [address] Div of Endocrinology [place], [place] [phone] Thyroid cancer (HCC); Postoperative hypothyroidism Social History [...] st Contact Info) Description 08/02/2024 2:20 PM CABLE ENGINEER Appointment [facility] [address] [place] [address] 08/02/2024 3:00 PM CABLE ENGINEER Office Visit [facility] - Hematology/Oncology [address] [place] [phone] Remi Beckett MD [address] [place] [phone] 08/18/2024 1:45 PM CABLE ENGINEER Office Visit [facility] - ENT [address] [place] [phone] Neri Delgado MD [address] [place] [address] 08/30/2024 2:20 PM CABLE ENGINEER Appointment [facility] [address] [place] [address] documented as of this encounter Visit Diagnoses Diagnosis Thyroid cancer (HCC) Malignant neoplasm of thyroid gland Postoperative hypothyroidism Postsurgical hypothyroidism documented in this encounter Care Teams Sap Solution Manager Consultant Relationship Specialty Start Date End Date Taniya Grimes MD [address] [place] [address] [address] DIV OF [facility] [place] [address] PCP - General 07/01/20 05/10/22 Marylu Marie DO [address] [place] [address] 2[address] DIV OF [facility] [place] [address] Resident - PCP Student Resident 06/26/20 01/11/22 documented as of this encounter
--- OUTSIDE RECORDS SUMMARY | 2024-07-26 08:36 | XMS_ITS | Encounter Summary ---
Author Organization [facility] Health Address [address] [facility] [place] [address] Care Team Providers Care Underwriting Analyst Name Role Phone Taniya Grimes MD [...] st Contact Info) Description 08/02/2024 2:20 PM FURNACE COOLER Appointment [facility] [address] [place] [address] 08/02/2024 3:00 PM FURNACE COOLER [facility] - [facility]ology/Oncology [address] [place] [phone] Remi Beckett MD [address] [place] [phone] 08/18/2024 1:45 PM FURNACE COOLER [facility] [address] [place] [phone] Neri Delgado MD [address] [place] [address] 08/30/2024 2:20 PM FURNACE COOLER Appointment [facility] [address] [place] [address] documented as of this encounter Visit Diagnoses Not on filedocumented in this encounter Care Teams Underwriting Analyst Relationship Specialty Start Date End Date Taniya Grimes MD [facility] DIV OF [facility] [place] [phone] PCP - General 07/01/20 05/10/22 Rocio Barcenas MD [address] [facility] [place] [place] [address] Resident - PCP Internal Medicine 01/12/22 04/05/22 documented as of this encounter
--- OUTSIDE RECORDS SUMMARY | 2024-07-26 08:36 | XMS_ITS | Encounter Summary ---
Author Organization [facility] Health Address [address] [facility] [place] [address] Care Team Providers Care Automatic Machine Attendant Name Role Phone Taniya Grimes MD Primary Care Provider Rocio Barcenas MD Unavailable Reason for Visit * Auth/Cert Specialty Diagnoses / Procedures Referred By Yuan robins Referred To Contact Diagnoses Thyroid cancer (HCC) THYROID CANCER Procedures DISSECTION NECK Referral ID Status Reason Start Date Expiration Date Visits Re quested Visits Authorized [id number] 1 1 Encounter Details Date Type Department Care Team (Latest Contact Info) Description 02/05/2022 7:34 AM CDT - 02/05/2022 2:59 PM CDT Hospital Encounter [facility] [address] [place] [phone] Neri Delgado MD [address] [place] [address] Surgery General Discharge Disposition: Home or Self [...] PO) Take by mouth once daily 12/24/2022 ONSUCOL-NEPPIWBMZ-MGMA PO Take by mouth once daily 06/13/2023 [...] fluticasone propionate (FLONASE) 50 MCG/ACT nasal spray [place] 2 (two) sprays into each nostril once daily 48 g 10/20/2021 11/25/2022 gabapentin (NEURONTIN) 300 MG capsuleIndications:Nicole stahl osteoarthritis of left hip TAKE 1 CAPSULE BY MOUTH THREE TIMES A DAY 90 capsule 5 10/08/2021 04/06/2022 EMUTDC-TEIDXKLMS-QYW-C -HYAL PO Take 1 tablet by mouth [...] concerns at this time. [facility] P[facility]. Per report from Yessenia FERRIS in PACU pt tolerated po ice chips and water. Pt taken to the bathroom per wheelchair. Pt has all belongings. Pt transported to the front lobby to be discharged home with . * [...] questions, please contact the outpatient pharmacy at [phone]. Mary Beth Gonzalez CPhT [facility] at [address], First Floor [place], [place] [address] Hours of Operation Wednesday - Wednesday: 8:00am to 6:00pm Wednesday: 9:00am to 1:00pm Epic: [facility] *Ensure the patient and clinic's [...] fluticasone propionate (FLONASE) 50 MCG/ACT nasal spray [place] 2 (two) sprays into each nostril once daily 48 g 0 ??? gabapentin (NEURONTIN) 300 MG capsule TAKE 1 CAPSULE BY MOUTH THREE TIMES A DAY 90 capsule 5 ??? IQGHYY-DXEQBFYWJ-LCI-C-HYAL PO Take 1 tablet by mouth 3 [...] 61 year old female with aggressive PTC ([id number]) s/p thyroidectomy, tracheal resection/reanastamosis, bilateral neck dissections [...] 2. Enhancing right central neck mass. RESIDENT: wSati Wilcox MD PROCEDURE: Excision of right central [...] anesthesia was induced. She was orotracheally intubated without difficulty. The neck was extended with a shoulder roll. Three centimeters of her previous neck incision was injected just to the right of midline with local anesthetic and marked. The neck was then p repped and draped in the usual sterile fashion. The skin was divided with a 15 blade scalpel, continued down through the platysma. Subplatysmal flaps were elevated. We mobilized the sternocleidomastoid muscle laterally, identified the internal jugular vein and mobilized this laterally as well. Withthese protected, we then divided through the strap muscle above and below the palpable notch and then these right-sided strap musculature from the left along the scarred midline raphe. We then worked through the deep tissue down to the perichondrium over the thyroid cartilage. The mass was fully removed. I then took additional sample of tissue just deep to this, which likely included the small portion of the cricothyroid musculature. Hemostasis was ensured and the wound was copiouslyirrigated and closed in layers using 3-0 Vicryl deep and Exofin skin glue on the surface. The patient was then returned to the care of the anesthesiologist, awakened, extubated, and taken to postop recovery room in stable condition. COMPLICATIONS: None. ESTIMATED BLOOD LOSS: 10 mL DISPOSITION: Home. Neri Delgado MD /[facility] .[id number] Doc ID: [id number] Voice Job ID: [id number] * Brief Op Note - Joycelyn Wilcox MD - 02/05/2022 11:03 AM CDT Brief Op Note Procedure: EXCISION RIGHT CENTRAL NECK MASS Patient Name: Brisa Caicedo Date of Service: 02/05/2022 Pre-Op Diagnosis: THYROID CANCER Post-Op Diagnosis: same Surgeon(s) and Role: * Neri Delgado MD - Primary * Joycelyn Wilcox MD - Resident - Assisting Gas Tender(s): none Anesthesia Type: general ETT Complications: none [...] st Contact Info) Description 08/02/2024 2:20 PM CHANGE ADVISOR Appointment [facility] [address] [place] [phone] 08/02/2024 3:00 PM CHANGE ADVISOR Office Visit [facility] - Hematology/Oncology [address] [place] [phone] Remi Beckett MD [address] [place] [phone] 08/18/2024 1:45 PM CHANGE ADVISOR Office Visit [facility] - ENT [address] [place] [phone] Neri Delgado MD [address] [place] [address] 08/30/2024 2:20 PM CHANGE ADVISOR Appointment [facility] [address] [place] [phone] documented as of this encounter Procedures Procedure Name Priority Date/Time Associated Diagnosis Comments PATHOLOGY TISSUE Routine 02/05/2022 11:2 4 AM CDT Thyroid cancer (HCC) DISSECTION NECK 02/05/2022 11:03 AM CDT Thyroid cancer (HCC) Special Needs SUPINE, HAVE THE NIMS AVAILABLE IN THE ROOMDS 02/02 documented in this encounter Results * PATHOLOGY TISSUE (02/05/2022 11:24 AM CDT) Case Report Surgical Pathology Report ? Case: [id number] ? Authorizing Provider: ??Neri Delgado MD ?Collected: ? 02/05/2022 11:24 AM ? Ordering Location: ? [facility] ?Received: ?02/05/2022 01:03 PM ? Pathologist: ? Munira Chavez MD ? Specimens: ?? A) - Neck, right central neck mass ? B) - Neck, additional tissue over thyroid cartilage ? 12/27/2023 9:39 AM [facility] Final Diagnosis Soft tissue, right central neck mass, excision (A): - Recurrent/residual papillary thyroid carcinoma (1.7 cm), infiltrating skeletal muscle - Margins free of malignancy (0.2 cm) Soft tissue, additional tissue over thyroid cartilage, excision (B): - Benign skeletal muscle 12/27/2023 9:39 AM [facility] Microscopic Description and Comment The sections show nests of neoplastic cells with nuclear clearing and grooves, crowding and overlapping that form papillary and follicular architecture. These sections were compared with the sections from the patient's prior hemithyroidectomy ([id number]). These findings best represent recurrence of the patient's known papillary thyroid carcinoma. 12/27/2023 9:39 AM [facility] Clinical History The patient is a 61-year-old female with a history of locally advance papillary thyroid and an enhancing right central neck mass. Operative procedures/findings: excision of neck mass- palpable tumor approximately 1 cm overlying the thyroid cartilage. 12/27/2023 9:39 AM [facility] Gross Description The [...] is submitted B1. SP 12/27/2023 9:39 AM [facility] Addendum 1 A request for xT solid tumor sequencing, PD-L1 22C3, and MMR IHC was received 12/10/23 for patient Brisa Walters from Dr. Remi Beckett. The test is to be performed on tissue from case [id number]. The case report, slides, and blocks for the cited accession were retrieved from the archives. The pathologist whose signature appears below reviewed the original pathology report, examined candidate H&E slides, and selected the block (A1) appropriate to the specifications of the ordered molecular analysis. The tissue was forwarded to [facility] where the subject molecular tests will be performed. 12/27/2023 9:39 AM [facility] Addendum electronically signed by Munira Chavez MD on 12/13/2023 at 1:32 PM Addendum 2 A second [facility] request was received 12/24/23. 12/27/2023 9:39 AM [facility] Addendum electronically signed by Munira Chavez MD on 12/27/2023 at 9:39 AM Disclaimer The performance characteristics of all immunohistochemical and indirect immunofluorescence stains (if any) cited in this report were determined by the Histopathology Laboratory of [facility]. Some of these tests were developed by [...] attending (teaching) pathologist. 12/27/2023 9:39 AM CDT [facility] Embedded Images 12/27/2023 9:39 AM CDT [facility] Biopsy, Excision ENTIRE NECK / Unknown 02/05/2022 11:24 AM CDT 02/05/2022 1:03 PM CDT Comment:Pre-op diagnosis: THYROID CANCER Biopsy, Excision ENTIRE NECK / Unknown 02/05/2022 11:29 AM CDT 02/05/2022 1:03 PM CDT Comment:Pre-op diagnosis: THYROID CANCER Neri Delgado MD LAB - PATHOLOGY/CYTO LOGY ORDERABLES Performing Organization Address City/State/[facility] Co de Phone Number [facility] [address] [phone] documented in this encounter Visit Diagnoses Diagnosis [...] at 1220, Until Josi 02/05/22 at 1559, Maximum total of 4 doses. [...] Moderate Pain, 4 doses, Starting on Josi 02/05/22 at 1220, Until Josi 02/05/22 at 1559, Maximum total of 4 doses. [...] PRN, Nausea/Vomiting, 1 dose, Starting on Josi 8 at 1220, Until Josi 8 at 1559, First choice, PACU oxyCODONE [...] MAR. documented in this encounter Care Teams Automatic Machine Attendant Relationship Specialty Start Date End Date Taniya Grimes MD [address] OF [facility] [place] [address] PCP - General 07/01/20 05/10/22 Rocio Barcenas MD [address] [facility] [place] [address] Resident - PCP Internal Medicine 01/12/22 04/05/22 documented as of this encounter
--- OUTSIDE RECORDS SUMMARY | 2024-07-26 08:36 | XMS_ITS | Encounter Summary ---
Author Organization [facility] Health Address [address] [address] Care Team Providers Care Cyber Operator Name Role Phone Taniya Grimes MD [...] st Contact Info) Description 08/02/2024 2:20 PM SANDWICH WRAPPER Appointment [facility] [address] [place] [address] 08/02/2024 3:00 PM SANDWICH WRAPPER Office Visit [facility] - Hematology/Oncology [address] [place] [phone] Remi Beckett MD [address] [place] [address] 08/18/2024 1:45 PM SANDWICH WRAPPER [facility] [address] [place] [address] Neri Delgado MD [address] [place] [address] 08/30/2024 2:20 PM SANDWICH WRAPPER Appointment [facility] [address] [place] [address] documented as of this encounter Visit Diagnoses Not on filedocumented in this encounter Care Teams Cyber Operator Relationship Specialty Start Date End Date Taniya Grimes MD [address] DIV OF [facility] [place] [phone] PCP - General 07/01/20 05/10/22 Rocio Barcenas MD [address] [facility] [place] [address] Resident - PCP Internal Medicine 01/12/22 04/05/22 documented as of this encounter
--- OUTSIDE RECORDS SUMMARY | 2024-07-26 08:36 | XMS_ITS | Encounter Summary ---
Author Organization [facility] Health Address [address] [facility] [place] [address] Care Team Providers Care Dispute Resolution Specialist Name Role Phone Taniya Grimes MD Primary Care Provider [phone] Rocoi Barcenas MD Unavailable Reason for Visit * Reason Onset Date Comments Update 01/30/2022 Encounter Details Date Type Department Care Team (Late st Contact Info) Description 01/30/2022 Telephone [facility] Endocrinology, Diabetes and Metabolism [address] [place] [address], [facility] [place] [phone] Yosi Bustamante MD [address] [place] [address] [place] [address] Update Social History Tobacco Use Types Packs/Day [...] it is [place]. Seeing anesthesiologist today, surgery Feb 05to remove the lump on her throat. ELE 6.6.22 RTC: 06/12/22 (TUS) Pt wanted you to know about this. documented in this encounter Plan of Treatment Upcoming Encounters Date Type Department Care Team (Late st Contact Info) Description 08/02/2024 2:20 PM CONCRETE FORM SETTER AND FINISHER Appointment [facility] [address] [place] [phone] 08/02/2024 3:00 PM CONCRETE FORM SETTER AND FINISHER Office Visit [facility] - Hematology/Oncology [address] [place] [phone] Remi Beckett MD [address] [place] [phone] 08/18/2024 1:45 PM CONCRETE FORM SETTER AND FINISHER Office Visit [facility] - ENT [address] [place] [phone] Neri Delgado MD [address] [place] [address] 08/30/2024 2:20 PM CONCRETE FORM SETTER AND FINISHER Appointment [facility] [address] [place] [phone] documented as of this encounter Visit Diagnoses Not on filedocumented in this encounter Care Teams Dispute Resolution Specialist Relationship Specialty Start Date End Date Taniya Grimes MD [address] [place] [address] OF [facility] [place] [phone] PCP - General 07/01/20 05/10/22 Rocio Barcenas MD [address] [place] [address] [place] [address] Resident - PCP Internal Medicine 01/12/22 04/05/22 documented as of this encounter
--- OUTSIDE RECORDS SUMMARY | 2024-07-26 08:36 | XMS_ITS | Encounter Summary ---
Author Organization [facility] Health Address [address] [facility] [place] [address] Care Team Providers Care C++ Quant Developer Name Role Phone Taniya Grimes MD Primary Care Provider Rocio Barcenas MD Unavailable Reason for Visit * Reason Comments Surgical Followup Neck mass Encounter Details Date Type Department Care Team (Late st Contact Info) Description 02/18/2022 10:15 AM CDT Office Visit [facility] Otol[facility]ology [address] [place] [phone] Neri Delgado MD [address] [place] [phone] Thyroid cancer (HCC) (Primary Dx); Complete paralysis [...] 10:17 AM CDT Thank you for visiting [facility] Otolaryngology - Head & [...] an appointment, please call our office at [phone] Wednesday through Wednesday from 8:30 am to4:30 pm. You can also request a routine appointment through your [email or web address] account. Prescription Refills Contact your pharmacy to [...] call the medical exchangeat and ask the ripsaw operator to page the ENT physician online advertising director. *Caller ID blocking service will need to be turned off for your call to be returned. We also specialize in Hearing Aids, Allergy testing, swallowing disorders, voice problems, cancer diagnosis, and so much more. Visit our website at [email or web address] for information about our practice and an interactive health encyclopedia. documented in this encounter Progress Notes * Neri Sweeney, CRISELDA-NEWBORN PHOTOGRAPHER - 02/18/2022 10:20 AM CDT CC: Chief Complaint Patient presents with ??? Surgical Followup Neck mass Diagnosis: Site: Thyroid Histology: PTC Stage: V9qP8mLj AJCC IVb Details: Positive margins, LVI +, [...] PO) Take by mouth once daily ??? NUWKNIR-OVQISTMWE-TMRX PO Take by mouth once daily ??? [...] propionate (FLONASE) 50 MCG/ACT nasal spray [place] 2 (two) sprays into each nostril once daily ??? gabapentin (NEURONTIN) 300 MG capsule TAKE 1 CAPSULE BY MOUTH THREE TIMES A DAY ??? TNVZEG-DVJEHKPDJ-NVO-C-HYAL PO Take 1 tablet by mouth 3 [...] 6 months or sooner if needed ?? I, BRIAN Simons acted as scribe for Neri Delgado MD [...] st Contact Info) Description 08/02/2024 2:20 PM SATELLITE INSTRUCTION FACILITATOR Appointment [facility] [address] [place] [address] 08/02/2024 3:00 PM SATELLITE INSTRUCTION FACILITATOR Office Visit [facility] - Hematology/Oncology [address] [place] [phone] Remi Beckett MD [address] [place] [address] 08/18/2024 1:45 PM SATELLITE INSTRUCTION FACILITATOR Office Visit [facility] - ENT [address] [place] [phone] Neri Delgado MD [address] [place] [address] 08/30/2024 2:20 PM SATELLITE INSTRUCTION FACILITATOR Appointment [facility] [address] [place] [address] documented as of this encounter Visit Diagnoses Diagnosis Thyroid cancer (HCC)- Primary Malignant neoplasm of thyroid gland Complete paralysis of right vocal cord Hoarseness Dysphonia Cigarette nicotine dependence without complication Tobacco use disorder Epigastric pain Abdominal pain, epigastric documented in this encounter Care Teams C++ Quant Developer Relationship Specialty Start Date End Date Taniya Grimes MD [address] OF [facility] [place] [address] PCP - General 07/01/20 05/10/22 Rocio Barcenas MD [address] [place] [address] Resident - PCP Internal Medicine 01/12/22 04/05/22 documented as of this encounter
--- OUTSIDE RECORDS SUMMARY | 2024-07-26 08:36 | XMS_ITS | Encounter Summary ---
Author Organization [facility] Health Address [address] [facility] [place] [address] Care Team Providers Care Radiological Technologist Name Role Phone Taniya Grimes MD Primary Care Provider Rocio Barcenas MD Unavailable Encounter Details Date Type Department Care Team (Latest Contact Info) Description 01/30/2022 2:30 PM CDT - 01/30/2022 11:59 PM CDT Hospital Encounter [facility] [address] [place] [phone] Taniya Grimes MD [address] [facility] [address] [facility] [place] [phone] Discharge Disposition: Home or Self Care Anesthesia [...] 1143 by Cristina Karimi RN 02/05/222058 by Generic, Auto Release documented in this encounter Social [...] PO) Take by mouth once daily 12/24/2022 FSTDDST-GFALVEHPG-UPLH PO Take by mouth once daily 06/13/2023 [...] fluticasone propionate (FLONASE) 50 MCG/ACT nasal spray [place] 2 (two) sprays into each nostril once daily 48 g 10/20/2021 11/25/2022 gabapentin (NEURONTIN) 300 MG capsuleIndications:Nicole stahl osteoarthritis of left hip TAKE 1 CAPSULE BY MOUTH THREE TIMES A DAY 90 capsule 5 10/08/2021 04/06/2022 XQMFTL-MQBFUOSFG-VLX-C -HYAL PO Take 1 tablet by mouth [...] st Contact Info) Description 08/02/2024 2:20 PM DOUBLE CUT OFF SAW OPERATOR Appointment [facility] [address] [place] [address] 08/02/2024 3:00 PM DOUBLE CUT OFF SAW OPERATOR Office Visit [facility] - Hematology/Oncology [address] [place] [phone] Remi Beckett MD [address] [place] [phone] 08/18/2024 1:45 PM DOUBLE CUT OFF SAW OPERATOR Office Visit [facility] - ENT [address] [place] [phone] Neri Delgado MD [address] [place] [address] 08/30/2024 2:20 PM DOUBLE CUT OFF SAW OPERATOR Appointment [facility] [address] [place] [phone] documented as of this encounter Visit Diagnoses Not on filedocumented in this encounter Care Teams Radiological Technologist Relationship Specialty Start Date End Date Taniya Grimes MD [address] [place] [address] [address] DIV [place] [phone] PCP - General 07/01/20 05/10/22 Rocio Barcenas MD [address] [place] [address] [place] [phone] Resident - PCP Internal Medicine 01/12/22 04/05/22 documented as of this encounter
--- OUTSIDE RECORDS SUMMARY | 2024-07-26 08:36 | XMS_ITS | Encounter Summary ---
Author Organization [facility] Address [address] [place] [address] Care Team Providers Care Gizzard Skin Remover Name Role Phone Taniya Grimes MD Primary Care Provider Rocio Barcenas MD Unavailable Reason for Referral * Radiology Services (Routine) - Closed Specialty Diagnoses / Procedures Referred By Yuan robins Referred To Contact MRI Diagnoses Nontraumatic tear of left rotator cuff, unspecified tear extent Procedures MRI SHOULDER LEFT WO CONTRAST Kami Willingham PA-C [address] [place] [address] Referral ID Status Reason Start Date Expiration Date Visits Re quested Visits Authorized [id number] Closed 03/19/2022 03/19/2023 1 1 Reason for Visit * Reason Comments Shoulder Pain Left shoulder pain Encounter Details Date Type Department Care Team (Late st Contact Info) Description 02/27/2022 12:30 PM CDT Office Visit [facility] [address] [facility], [place] [address] Kami Willingham PA-C [address] [facility] 1L - DOOR 3,4 [place] [address] Nontraumatic tear of left rotator [...] benefits of supplements such as: Vitamin D3 3854-8341 units daily, Glucosamine/chondriotin 500 to 2000 mg daily, and , Turmeric 1000mg daily (a natural anti-inflammatory). To Find out more info about your diagnosis, visit: [email or web address] PT Facilities recommended (all are centralized scheduling numbers) [facility] PT: [email or web address], [facility] PT: [phone] [facility]: [email or web address], , [email or web address]: [email or web address], [facility]: [email or web address], [facility]: [email or web address] [facility] physical therapy: [email or web address], ([place] locations) [facility] Orthopaedic office contact information: [facility] Repatcher line for assistance with appointments at: or , option 2 Office @ [facility], [address] [address] Please contact our staff at [phone], if you have any further questions or concerns. Office @ [facility]; [facility] [address] [place] [address] Please contact JOSY Carroll at , if you have any further questions or concerns. Office @ [facility]; [facility] [address] [place], [place] [address] [address], [place] [address] Office @ [facility] location: [address] [facility] [address], [place] [address] , [facility] location: [address] [place] [address] Sincerely, Kami Willingham MPA, PA-C [email or web address] documented in this encounter Progress Notes * Kami Willingham PA-C - 02/27/2022 1:44 PM CDT Images from the original note were not included. Dear Dr. Taniya Grimes MD ; Today, 02/27/22, we had the pleasure treating Brisa Hogan at [facility] [...] TWICE A DAY 60 capsule 11 ??? [id number]-NYVT PO Take by mouth once daily ??? [...] fluticasone propionate (FLONASE) 50 MCG/ACT nasal spray [place] 2 (two) sprays into each nostril once daily 48 g 0 ??? gabapentin (NEURONTIN) 300 MG capsule TAKE 1 CAPSULE BY MOUTH THREE TIMES A DAY 90 capsule 5 ??? [id number]-[id number]-LSF-C-HYAL PO Take 1 tablet by mouth 3 [...] test is negative. Posterior apprehension is negative. Gaston's test is positive. Shoulder impingement test is [...] CDTAssociated Order(s): PROC INJECTION JOINT (SMALL/INTERMED/MAJOR) Procedure(s): PA DRAIN/INJECT LARGE JOINT/BURSA Pre-Procedure Diagnose(s): Nontraumatic tear [...] st Contact Info) Description 08/02/2024 2:20 PM COAL WEIGHER Appointment [facility] [address] [place] [address] 08/02/2024 3:00 PM COAL WEIGHER Office Visit [facility] - Hematology/Oncology [address] [place] [phone] Remi Beckett MD [address] [place] [phone] 08/18/2024 1:45 PM COAL WEIGHER Office Visit [facility] - ENT [address] [place] [phone] Neri Delgado MD [address] [place] [address] 08/30/2024 2:20 PM COAL WEIGHER Appointment [facility] [address] [place] [address] documented as of this encounter Procedures Procedure Name Priority Date/Time Associated Diagnosis Comments PA DRAIN/INJECT LARGE JOINT/BURSA Routine 02/27/2022 2:13 PM [...] DATE/TIME OF EXAM: ??03/29/2022 4:40 PM, LOCATION ??[facility] INDICATION: M75.102: Nontraumatic tear of left rotator [...] DATE/TIME OF EXAM: 03/29/2022 4:40 PM, LOCATION [facility] INDICATION: M75.102: Nontraumatic tear of left rotator [...] AM Kami Willingham PA-C MR ORDERABLES * PA DRAIN/INJECT LARGE JOINT/BURSA (02/27/2022 2:13 PM CDT) [...] Shoulder documented in this encounter Care Teams Gizzard Skin Remover Relationship Specialty Start Date End Date Taniya Grimes MD [address] [place] [address] PCP - General 07/01/20 05/10/22 Rocio Barcenas MD [address] [facility] [place] [place] [address] Resident - PCP Internal Medicine 01/12/22 04/05/22 documented as of this encounter
--- OUTSIDE RECORDS SUMMARY | 2024-07-26 08:36 | XMS_ITS | Encounter Summary ---
Author Organization [facility] Address [address] [facility] [place] [address] Care Team Providers Care Core Assembly Supervisor Name Role Phone Taniya Grimes MD Primary Care Provider [phone] Rocio Barcenas MD Unavailable Reason for Visit * Radiology Services (Routine) - Closed Specialty Diagnoses / Procedures Referred By Yuan robins Referred To Contact CT Scan Diagnoses Thyroid cancer (HCC) Procedures CT NECK SOFT TISSUE W CONT Neri Delgado MD [address] [place] [address] [facility] [address] [place] [address] Referral ID Status Reason Start Date Expiration Date Visits Re quested Visits Authorized [id number] Closed 01/14/2022 01/14/2023 1 1 Encounter Details Date Type Department Care Team (Latest Contact Info) Description 01/28/2022 9:18 AM CDT - 01/28/2022 11:59 PM CDT Hospital Encounter [facility] CAT SCAN [address] [place] [address] Neri Delgado MD [facility] [place] [address] Discharge Disposition: Home or Self [...] fluticasone propionate (FLONASE) 50 MCG/ACT nasal spray [place] 2 (two) sprays into each nostril once daily 48 g 10/20/2021 11/25/2022 gabapentin (NEURONTIN) 300 MG capsuleIndications:Nicole favio osteoarthritis of left hip TAKE 1 CAPSULE BY MOUTH THREE TIMES A DAY 90 capsule 5 10/08/2021 04/06/2022 LUROMN-[id number]-ICA-C -HYAL PO Take 1 tablet by mouth [...] st Contact Info) Description 08/02/2024 2:20 PM CHEMICAL EDUCATOR Appointment [facility] [address] [place] [address] 08/02/2024 3:00 PM CHEMICAL EDUCATOR Office Visit [facility] - Hematology/Oncology [address] [place] [phone] Remi Beckett MD [address] [place] [address] 08/18/2024 1:45 PM CHEMICAL EDUCATOR Office Visit [facility] - ENT [address] [place] [phone] Neri Delgado MD [address] [place] [address] 08/30/2024 2:20 PM CHEMICAL EDUCATOR Appointment [facility] [address] [place] [address] documented as of this encounter Procedures Procedure [...] - 1.30 mg/dL 01/28/2022 9:40 AM CDT [facility] eGFR 79(L) >90 mL/min/1.7 3 m2 01/28/2022 9:40 AM CDT [facility] Blood BLOOD SPECIMEN / Unknown 01/28/2022 9:26 AM CDT 01/28/2022 9:39 AM CDT Neri Delgado MD LAB - POINT OF CARE ORDERABLES [facility] [address] [place] [address], [facility] [phone] documented in this encounter Visit Diagnoses Diagnosis [...] mL documented in this encounter Care Teams Core Assembly Supervisor Relationship Specialty Start Date End Date Taniya Grimes MD [address] [facility] [place] [phone] PCP - General 07/01/20 05/10/22 Rocio Barcenas MD [address] [facility] [place] [address] Resident - PCP Internal Medicine 01/12/22 04/05/22 documented as of this encounter
--- OUTSIDE RECORDS SUMMARY | 2024-07-26 08:36 | XMS_ITS | Encounter Summary ---
Author Organization [facility] Address [address] [facility] [place] [address] Care Team Providers Care Stand Grinder Name Role Phone Taniya Grimes MD Primary Care Provider [phone] Rocio Barcenas MD Unavailable Encounter Details Date Type Department Care Team (Late st Contact Info) Description 02/26/2022 Orders Only [facility] [address] [facility], [place] [phone] Kami Willingham PADuglas [address] [facility] 1L - DO[address]4 [place] [address] Left shoulder pain, unspecified chronicity [...] st Contact Info) Description 08/02/2024 2:20 PM BULK INTAKE WORKER Appointment [facility] [address] [place] [address] 08/02/2024 3:00 PM BULK INTAKE WORKER Office Visit [facility] - Hematology/Oncology [address] [place] [phone] Remi Beckett MD [address] [place] [phone] 08/18/2024 1:45 PM BULK INTAKE WORKER Office Visit [facility] [address] [place] [phone] Neri Delgado MD [address] [place] [address] 08/30/2024 2:20 PM BULK INTAKE WORKER Appointment [facility] [address] [place] [address] documented as of this encounter Results * [...] DATE/TIME OF EXAM: ??02/27/2022 12:57 PM, LOCATION ??[facility] INDICATION: M25.512: Left shoulder pain, [...] DATE/TIME OF EXAM: 02/27/2022 12:57 PM, LOCATION [facility] INDICATION: M25.512: Left shoulder pain, [...] chronicity documented in this encounter Care Teams Stand Grinder Relationship Specialty Start Date End Date Taniya Grimes MD [address] [facility] [address] [facility] [place] [address] PCP - General 07/01/20 05/10/22 Rocio Barcenas MD [address] [facility] [place] [address] Resident - PCP Internal Medicine 01/12/22 04/05/22 documented as of this encounter
--- OUTSIDE RECORDS SUMMARY | 2024-07-26 08:36 | XMS_ITS | Encounter Summary ---
Author Organization [facility] Address [address] [facility] [place] [address] Care Team Providers Care Division Chief Name Role Phone Taniya Grimes MD Primary Care Provider Rocio Barcenas MD Unavailable Encounter Details Date Type Department Care Team (Latest Contact Info) Description 03/19/2022 12:20 PM CDT - 03/19/2022 11:59 PM CDT Hospital Encounter [facility] OP DRAW STATION [address] [place] [phone] Discharge Disposition: Home or Self Care Social [...] A DAY 60 capsule 11 02/22/2022 05/28/2023 [id number] PO Take by mouth once daily 06/13/2023 [...] fluticasone propionate (FLONASE) 50 MCG/ACT nasal spray [place] 2 (two) sprays into each nostril once daily 48 g 10/20/2021 11/25/2022 gabapentin (NEURONTIN) 300 MG capsuleIndications:Nicole stahl osteoarthritis of left hip TAKE 1 CAPSULE BY MOUTH THREE TIMES A DAY 90 capsule 5 10/08/2021 04/06/2022 ADOTVT-LNTROYZYH-HOS-C -HYAL PO Take 1 tablet by mouth [...] st Contact Info) Description 08/02/2024 2:20 PM CONTACT LENS FITTER Appointment [facility] [address] [place] [address] 08/02/2024 3:00 PM CONTACT LENS FITTER Office Visit [facility] - Hematology/Oncology [address] [place] [phone] Remi Beckett MD [address] [place] [phone] 08/18/2024 1:45 PM CONTACT LENS FITTER Office Visit [facility] - ENT [address]25 [place] [address] Neri Delgado MD 1225 [place] [address] 08/30/2024 2:20 PM CONTACT LENS FITTER Appointment [facility] [address] [place] [address] documented as of this encounter Procedures Procedure [...] 38.5 ng/mL 03/21/2022 12:06 AM CDT [facility] ([facility]) Comment: According to the National Academy of [...] PM CDT 03/19/2022 1:04 PM CDT Narrative [facility] ([facility]) - 03/21/2022 12:06 AM CDT Performed at: ??01 - [facility] [address] [facility], [place], [place] ??[id number] Taping Supervisor: Oral Melendez PhD, Phone: ??[phone] Yosi Bustamante MD LAB - CHEMISTRY ORD ERABLES [facility]) [address] [place] [address] * T4 FREE (03/19/2022 12:31 PM CDT) T4 Free 1.1 0.7 - 1.5 ng/dL 03/19/2022 2:26 PM CDT [facility] Blood BLOOD SPECIMEN / Unknown Lab Venipuncture / Unknown 03/19/2022 12:31 PM CDT 03/19/2022 1:05 PM CDT Yosi Bustamante MD LAB - CHEMISTRY ORD ERABLES [facility] [address] [place] [address], [facility] [phone] * (ABNORMAL) RENAL FUNCTION PANEL (03/19/2022 12:31 PM CDT) BUN 14 7 - 26 mg/dL 03/19/2022 1:36 PM CDT [facility] Creatinine 0.81 0.56 - 0.96 mg/dL 03/19/2022 1:36 PM CDT [facility] Sodium 140 136 - 145 mmol/L 03/19/2022 1:36 PM CDT [facility] Potassium 4.2 3.5 - 4.5 mmol/L 03/19/2022 1:36 PM CDT [facility] Chloride 103 98 - 107 mmol/L 03/19/2022 1:36 PM [facility] CO2 25 22 - 29 mmol/L 03/19/2022 1:36 PM [facility] Glucose 94 70 - 115 mg/dL 03/19/2022 1:36 PM [facility] Albumin 4.0 3.4 - 5.0 g/dL 03/19/2022 1:36 PM [facility] Calcium 8.9 8.4 - 10.2 mg/dL 03/19/2022 1:36 PM [facility] Phosphorus 4.9 2.9 - 5.1 mg/dL 03/19/2022 1:36 PM [facility] Anion Gap 16 8 - 18 03/19/2022 1:36 PM [facility] BUN/Creatinine Ratio 17 7 - 23 03/19/2022 1:36 PM [facility] Osmolality Calculated 290 270 - 300 mOsm/kg 03/19/2022 1:36 PM [facility] eGFR by CKD-EPI 82(L) >=90 mL/min/1.7 3 m2 03/19/2022 1:36 PM [facility] Blood BLOOD SPECIMEN / Unknown Lab Venipuncture / Unknown 03/19/2022 12:31 PM CDT 03/19/2022 1:05 PM CDT Yosi Bustamante MD LAB - CHEMISTRY ORD ERABLES [facility] [address] [place] [phone], [facility] [phone] * THYROGLOBULIN REFLEX PROFILE (03/19/2022 12:31 PM CDT) Thyroglobulin Antibody <1.0 0.0 - 0.9 IU/mL 03/21/2022 12:06 AM CDT [facility] ([facility]) Comment:Thyroglobulin Antibo dy measured by Lisbet Marcos Methodology Blood BLOOD SPECIMEN / Unknown Lab Venipuncture / Unknown 03/19/2022 12:31 PM CDT 03/19/2022 1:04 PM CDT Narrative [facility] ([facility]) - 03/21/2022 12:06 AM CDT Performed at: ??01 - [facility] [place] [address] [place], [place] ??[id number] Taping Supervisor: Oral Melendez PhD, Phone: ??[phone] Yosi Bustamante MD LAB - CHEMISTRY ORD ERABLES Performing Organization Address City/[facility]/ZIP Co de Phone Number [facility] ([facility]) [address] [place] [address], [facility] * (ABNORMAL) TSH REFLEX FREE T4 (03/19/2022 12:31 PM CDT) TSH 0.261(L) 0.350 - 4.940 uIU/mL 03/19/2022 1:54 PM CDT [facility] Blood BLOOD SPECIMEN / Unknown Lab Venipuncture / Unknown 03/19/2022 12:31 PM CDT 03/19/2022 1:05 PM CDT Yosi Bustamante MD LAB - CHEMISTRY ORD ERABLES Performing Organization Address City/[facility]/ZIP Co de Phone Number [facility] [address] [place] [address], [facility] [phone] documented in this encounter Visit Diagnoses Diagnosis Thyroid cancer (HCC)- Primary Malignant neoplasm of thyroid gland Hypocalcemia Other hypoparathyroidism (HCC) Postoperative hypothyroidism Postsurgical hypothyroidism documented in this encounter Care Teams Division Chief Relationship Specialty Start Date End Date Taniya Grimes MD [address] OF [facility] [place] [phone] PCP - General 07/01/20 05/10/22 Rocio Barcenas MD [address] [facility] [place] [phone] Resident - PCP Internal Medicine 01/12/22 04/05/22 documented as of this encounter
--- OUTSIDE RECORDS SUMMARY | 2024-07-26 08:36 | XMS_ITS | Encounter Summary ---
Author Organization [facility] Address [address] [place] [address] Care Team Providers Care Freelance Court Reporter Name Role Phone Taniya Grimes MD Primary Care Provider Rocio Barcenas MD Unavailable Reason for Visit * Reason Onset Date Comments Imaging Results 03/31/2022 Encounter Details Date Type Department Care Team (Late st Contact Info) Description 03/31/2022 Telephone [facility] [address] [place] [address] Kami Willingham PA-C [address] [place] [address] Imaging Results Social History Tobacco [...] the plan and all follow-up steps. Kami Willingham MPA, PA-C documented in this encounter Plan of Treatment Upcoming Encounters Date Type Department Care Team (Late st Contact Info) Description 08/02/2024 2:20 PM HEMODIALYSIS TECHNICIAN Appointment [facility] [address] [place] [address] 08/02/2024 3:00 PM HEMODIALYSIS TECHNICIAN Office Visit [facility] - Hematology/Oncology [address] [place] [phone] Remi Beckett MD [address] [place] [phone] 08/18/2024 1:45 PM HEMODIALYSIS TECHNICIAN Office Visit [facility] - ENT [address] [place] [phone] Neri Delgado MD [address] [place] [address] 08/30/2024 2:20 PM HEMODIALYSIS TECHNICIAN Appointment [facility] [address] [place] [address] documented as of this encounter Visit Diagnoses Not on filedocumented in this encounter Care Teams Freelance Court Reporter Relationship Specialty Start Date End Date Taniya Grimes MD [address] [place] [address] [address] [facility] [place] [phone] PCP - General 07/01/20 05/10/22 Rocio Barcenas MD [facility] [place] [phone] Resident - PCP Internal Medicine 01/12/22 04/05/22 documented as of this encounter
--- OUTSIDE RECORDS SUMMARY | 2024-07-26 08:36 | XMS_ITS | Encounter Summary ---
Author Organization [facility] Address [address] [place] [address] Care Team Providers Care Typing Element Machine Operator Name Role Phone Taniya Grimes MD Primary Care Provider Rocio Barcenas MD Unavailable Reason for Visit * Auth/Cert Specialty Diagnoses / Procedures Referred By Yuan robins Referred To Contact Diagnoses Thyroid cancer (HCC) THYROID CANCER Procedures DISSECTION NECK Referral ID Status Reason Start Date Expiration Date Visits Re quested Visits Authorized [id number] 1 1 Encounter Details Date Type Department Care Team (Late st Contact Info) Description 02/05/2022 10:05 AM CDT - 02/05/2022 12:29 PM CDT Surgery [facility] [address] [place] [phone] Neri Delgado MD [address] [place] [address] EXCISION RIGHT CENTRAL NECK MASS Surgery Details Date/Time Status Location OR Service Patient Class Case Class Case Type Trauma Case? 02/05/2022 10:[address] [facility] OR OR 06 ENT Surgery Day Care [...] PO) Take by mouth once daily 12/24/2022 [id number]-[id number]-GCZO PO Take by mouth once daily 06/13/2023 [...] fluticasone propionate (FLONASE) 50 MCG/ACT nasal spray [place] 2 (two) sprays into each nostril once daily 48 g 10/20/2021 11/25/2022 gabapentin (NEURONTIN) 300 MG capsuleIndications:Nicole stahl osteoarthritis of left hip TAKE 1 CAPSULE BY MOUTH THREE TIMES A DAY 90 capsule 5 10/08/2021 04/06/2022 [id number]-[id number]-[id number]-C -HYAL PO Take 1 tablet by mouth [...] concerns at this time. Pt has prescription from[facility]. Pt PIV removed. Per report from Yessenia FERRIS in PACU pt tolerated po ice chips and water. Pt taken to the bathroom per wheelchair. Pt has all belongings. [facility] with . * [...] pharmacy at [phone]. Mary Beth Gonzalez CPhT [facility] at [facility] [address] [facility], First Floor [place], [place] [address] Hours of Operation Wednesday - Wednesday: 8:00am to 6:00pm Wednesday: 9:00am to 1:00pm Epic: [facility] *Ensure the patient and [...] fluticasone propionate (FLONASE) 50 MCG/ACT nasal spray [place] 2 (two) sprays into each nostril once daily 48 g 0 ??? gabapentin (NEURONTIN) 300 MG capsule TAKE 1 CAPSULE BY MOUTH THREE TIMES A DAY 90 capsule 5 ??? [id number]-BKQXBQZBU-BPQ-C-HYAL PO Take 1 tablet by mouth 3 [...] 61 year old female with aggressive PTC ([id number]) s/p thyroidectomy, tracheal resection/reanastamosis, bilateral neck dissections [...] mL DISPOSITION: Home. Neri Delgado MD SM/gabriella .[id number] Doc ID: [id number] Voice Job ID: [id number] * Brief Op Note - Joycelyn Wilcox MD - 02/05/2022 11:03 AM CDT Brief Op Note Procedure: EXCISION RIGHT CENTRAL NECK MASS Patient Name: Brisa Caicedo Date of Service: 02/05/2022 Pre-Op Diagnosis: THYROID CANCER Post-Op Diagnosis: same Surgeon(s) and Role: * Neri Delgado MD - Primary * Joycelyn Wilcox MD - Resident - Assisting Liaison Officer(s): none Anesthesia Type: general ETT Complications: none [...] st Contact Info) Description 08/02/2024 2:20 PM FRAMING MILL SUPERVISOR Appointment [facility] [address] [place] [address] 08/02/2024 3:00 PM FRAMING MILL SUPERVISOR Office Visit [facility] [place] [facility] - Hematology/Oncology [address] [place] [phone] Remi Beckett MD [address] [place] [phone] 08/18/2024 1:45 PM FRAMING MILL SUPERVISOR Office Visit [facility] [place] [facility] - ENT [address] [place] [phone] Neri Delgado MD [address] [place] [address] 08/30/2024 2:20 PM FRAMING MILL SUPERVISOR Appointment [facility] [address] [place] [address] documented as of this encounter Procedures Procedure Name Priority Date/Time Associated Diagnosis Comments PATHOLOGY TISSUE Routine 02/05/2022 11:2 4 AM CDT Thyroid cancer (HCC) DISSECTION NECK 02/05/2022 11:03 AM CDT Thyroid cancer (HCC) Special Needs SUPINE, HAVE THE NIMS AVAILABLE IN THE ROOMDS 02/02 documented in this encounter Results * PATHOLOGY TISSUE (02/05/2022 11:24 AM CDT) Case Report Surgical Pathology Report ? Case: [id number] ? Authorizing Provider: ??Neri Delgado MD ?Collected: ? 02/05/2022 11:24 AM ? Ordering Location: ? [facility] ?Received: ?02/05/2022 01:03 PM ? Pathologist: ? Munira Chavez MD ? Specimens: ?? A) - Neck, right central neck mass ? B) - Neck, additional tissue over thyroid cartilage ? 12/27/2023 9:39 AM CDT [facility] Final Diagnosis Soft tissue, right central neck mass, excision (A): - Recurrent/residual papillary thyroid carcinoma (1.7 cm), infiltrating skeletal muscle - Margins free of malignancy (0.2 cm) Soft tissue, additional tissue over thyroid cartilage, excision (B): - Benign skeletal muscle 12/27/2023 9:39 AM [facility] Microscopic Description and Comment The sections show nests of neoplastic cells with nuclear clearing and grooves, crowding and overlapping that form papillary and follicular architecture. These sections were compared with the sections from the patient's prior hemithyroidectomy ([id number]). These findings best represent recurrence of the patient's known papillary thyroid carcinoma. 12/27/2023 9:39 AM [facility] Clinical History The patient is a 61-year-old female with a history of locally advance papillary thyroid and an enhancing right central neck mass. Operative procedures/findings: excision of neck mass- palpable tumor approximately 1 cm overlying the thyroid cartilage. 12/27/2023 9:39 AM [facility] Gross Description The requisition [...] is submitted B1. SP 12/27/2023 9:39 AM [facility] Addendum 1 A request for xT solid tumor sequencing, PD-L1 22C3, and MMR IHC was received 12/10/23 for patient Brisa Benavidesord from Dr. Remi Beckett. The test is to be performed on tissue from case [id number]. The case report, slides, and blocks for the cited accession were retrieved from the archives. The pathologist whose signature appears below reviewed the original pathology report, examined candidate H&E slides, and selected the block (A1) appropriate to the specifications of the ordered molecular analysis. The tissue was forwarded to [facility] where the subject molecular tests will be performed. 12/27/2023 9:39 AM [facility] Addendum electronically signed by Munira Chavez MD on 12/13/2023 at 1:32 PM Addendum 2 A second [employer] request was received 12/24/23. 12/27/2023 9:39 AM [facility] Addendum electronically signed by Munira Chavez MD on 12/27/2023 at 9:39 AM Disclaimer The performance characteristics of all immunohistochemical and indirect immunofluorescence stains (if any) cited in this report were determined by the Histopathology Laboratory of [facility]. Some of these tests were developed by [...] the attending (teaching) pathologist. 12/27/2023 9:39 AM [facility] Embedded Images 12/27/2023 9:39 AM [facility] Biopsy, Excision ENTIRE NECK / Unknown 02/05/2022 11:24 AM CDT 02/05/2022 1:03 PM CDT Comment:Pre-op diagnosis: THYROID CANCER Biopsy, Excision ENTIRE NECK / Unknown 02/05/2022 11:29 AM CDT 02/05/2022 1:03 PM CDT Comment:Pre-op diagnosis: THYROID CANCER Neri Delgado MD LAB - PATHOLOGY/CYTO LOGY ORDERABLES Performing Organization Address City/State/[facility] Co de Phone Number [facility] [address] [phone] documented in this encounter Visit Diagnoses Diagnosis [...] 1051, Until Josi 8 at 1205, Intra-op $ Given 02/05/2022 10:51 [...] 0745, Until Josi 02/05/22 at 1559, Pre-op 0745 (Due) PRN Medication [...] 1225 ($ Given - Prov ider: Yessenia Galvan, CRISELDA-APPLICATION SUPPORT DEVELOPER) fentaNYL (PF) (Sublimaze) injection 50 mcg 50 [...] ($ Given - Prov ider: Yessenia Galvan APRN-APPLICATION SUPPORT DEVELOPER) lidocaine 1% (Xylocaine-MPF) - EPINEPHrine 1:100,000 injection (CANCELED) PRN, Starting on Josi 02/05/22 at 1051, Until Josi 02/05/22 at 1205, Intra-op 1051 ($ Given - [...] MAR. documented in this encounter Care Teams Typing Element Machine Operator Relationship Specialty Start Date End Date Taniya Grimes MD [address] [place] [address] PCP - General 07/01/20 05/10/22 Rocio Barcenas MD [address] [facility] [place] [address] Resident - PCP Internal Medicine 01/12/22 04/05/22 documented as of this encounter
--- OUTSIDE RECORDS SUMMARY | 2024-07-26 08:36 | XMS_ITS | Encounter Summary ---
Author Organization [facility] Address [address] [facility] [place] [address] Care Team Providers Care Whirley Operator Name Role Phone Taniya Grimes MD Primary Care Provider Rocio Barcenas MD Unavailable Reason for Visit * Auth/Cert Specialty Diagnoses / Procedures Referred By Contac t Referred To Contact Diagnoses Thyroid cancer (HCC) THYROID CANCER Procedures DISSECTION NECK Referral ID Status Reason Start Date Expiration Date Visits Re quested Visits Authorized [id number] 1 1 Encounter Details Date Type Department Care Team (Late st Contact Info) Description 02/05/2022 10:29 AM CDT Anesthesia Event [facility] [address] [place] [phone] Rachel Aviles MD [address] [facility] [place] [phone] Anesthesia Record Procedure Summary Procedure Name Responsible [...] Left; Placed By: marcelino; Tolerance: Well 02/05/22 08 by Beatriz White RN 02/05/22 1450 by Milly Veloz RN ETT Date: 02/05/22; Time : 1038; Placed By: Mukund Arriaga; Vent: easy [...] reviewed: Yes (08/2017 NSR) Lab(s) reviewed: Yes ([facility] 12/08/21 reviewed: Cr 0.82, K 4.6.). Anes [...] taking for the 01/30/22 encounter (Hospital Encounter)with [facility] PAT ROOM 1. No current facility-administered medications [...] DIRECT LARYNGOSCOPY WITH BIOPSY ??? 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 Patient is postmenopausal. Postmenopausal OB History No obstetric history on file. Covid Vaccine: Lab Results: Recent Labs Base Name 12/25/21 1156 [id number] Recent Labs Component Name 10/29/21 0000 [...] PM and Within 6 months for AICD [place] Information needed (tassel snipper, mode, indication for CIED, battery life, magnet [...] feel Tired, Observed apnea, high blood Pressure, BMI>35, Age > 50, Neck circumference > 18 [...] Event Date/Time: 02/05/2022 10:39 AM Procedure: intubation (01147). Procedure Section: Sedation: under general anesthesia. Indications [...] procedural Anesthetic Plan was discussed with the litigation legal assistant. BMI, Height, Weight Tobacco History Estimated [...] needed 02/05/2022 at 0630 ??? fluticasone propionate [place] 2 (two) sprays into each nostril once [...] DIRECT LARYNGOSCOPY WITH BIOPSY ??? 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 Patient is postmenopausal. Postmenopausal OB History No obstetric history on file. Covid Vaccine: Lab Results: Recent Labs Base Name 12/25/21 1156 [id number] 101 Recent Labs Component Name 10/29/21 0000 [...] Contact Info) Description 08/02/2024 2:20 PM CLIENT BUSINESS MANAGER Appointment [facility] [address] [place] [address] 08/02/2024 3:00 PM CLIENT BUSINESS MANAGER Office Visit [facility] - Hematology/Oncology [address] [place] [phone] Remi Beckett MD [address] [place] [phone] 08/18/2024 1:45 PM CLIENT BUSINESS MANAGER Office Visit [facility] - ENT [address] [place] [phone] Neri Delgado MD [address] [place] [address] 08/30/2024 2:20 PM CLIENT BUSINESS MANAGER Appointment [facility] [address] [place] [address] documented as of this encounter Procedures Procedure [...] Event Date/Time: ??02/05/2022 10:39 AM Procedure: intubation (43685). Procedure Section: ?? Sedation: under general anesthesia. [...] mg documented in this encounter Care Teams Whirley Operator Relationship Specialty Start Date End Date Taniya Grimes MD [address] OF [employer] [place] [phone] PCP - General 07/01/20 05/10/22 Rocio Barcenas MD [address] [facility] [place] [phone] Resident - PCP Internal Medicine 01/12/22 04/05/22 documented as of this encounter
--- OUTSIDE RECORDS SUMMARY | 2024-07-26 08:36 | XMS_ITS | Encounter Summary ---
Author Organization [facility] Health Address [address] [facility] [place] [address] [address]iders Care Lane Marker Installer Name Role Phone Taniya Grimes MD Primary Care Provider [phone] Rocio Barcenas MD Unavailable Encounter Details Date [...] st Contact Info) Description 08/02/2024 2:20 PM KAIAWHINA Appointment [facility] [address] [place] [address] 08/02/2024 3:00 PM KAIAWHINA Office Visit [facility] - Hematology/Oncology [address] [place] [address] Remi Beckett MD [address] [place] [address] 08/18/2024 1:45 PM KAIAWHINA [facility] [address] [place] [address] Neri Delgado MD [address] [place] [address] 08/30/2024 2:20 PM KAIAWHINA Appointment [facility] [address] [place] [address] documented as of this encounter Visit Diagnoses Not on filedocumented in this encounter Care Teams Lane Marker Installer Relationship Specialty Start Date End Date Taniya Grimes MD [address] DIV OF [facility] [place] [phone] PCP - General 07/01/20 05/10/22 Rocio Barcenas MD [address] [facility] [place] [address] Resident - PCP Internal Medicine 01/12/22 04/05/22 documented as of this encounter
--- OUTSIDE RECORDS SUMMARY | 2024-07-26 08:36 | XMS_ITS | Encounter Summary ---
Author Organization [facility] Health Address [address] [facility] [place] [address] Care Team Providers Care Foreign Clerk Name Role Phone Taniya Grimes MD Primary Care Provider Rocio Barcenas MD Unavailable Encounter Details Date Type Department Care Team (Latest Contact Info) Description 02/27/2022 12:43 PM CDT - 02/27/2022 11:59 PM CDT Hospital Encounter [facility] [address]L [address] [facility] [place] [address] Kami Willingham, PABetoC [address] [facility] 1L - DOOR 3,4 [place] [phone] Discharge Disposition: Home or Self Care Social [...] A DAY 60 capsule 11 02/22/2022 05/28/2023 [id number] PO Take by mouth once daily 06/13/2023 [...] fluticasone propionate (FLONASE) 50 MCG/ACT nasal spray [place] 2 (two) sprays into each nostril once daily 48 g 10/20/2021 11/25/2022 gabapentin (NEURONTIN) 300 MG capsuleIndications:Nicole favio osteoarthritis of left hip TAKE 1 CAPSULE BY MOUTH THREE TIMES A DAY 90 capsule 5 10/08/2021 04/06/2022 [id number]-JPNXGMXZH-RRD-C -HYAL PO Take 1 tablet by mouth [...] st Contact Info) Description 08/02/2024 2:20 PM MEDICAL SUPPORT ASSISTANT Appointment [address] [address] 08/02/2024 3:00 PM MEDICAL SUPPORT ASSISTANT Office Visit [facility] - Hematology/Oncology [address] [place] [phone] Remi Beckett MD [address] [place] [address] 08/18/2024 1:45 PM MEDICAL SUPPORT ASSISTANT Office Visit [facility] - ENT [address] [place] [phone] Neri Delgado MD [address] [place] [address] 08/30/2024 2:20 PM MEDICAL SUPPORT ASSISTANT Appointment [facility] [address] [place] [address] documented as of this encounter Procedures Procedure [...] DATE/TIME OF EXAM: ??02/27/2022 12:57 PM, LOCATION ??[facility] INDICATION: M25.512: Left shoulder [...] DATE/TIME OF EXAM: 02/27/2022 12:57 PM, LOCATION [facility] INDICATION: M25.512: Left shoulder [...] chronicity documented in this encounter Care Teams Foreign Clerk Relationship Specialty Start Date End Date Taniya Grimes MD [address] OF [facility] [place] [address] PCP - General 07/01/20 05/10/22 Rocio Barcenas MD [address] [facility] [place] [address] Resident - PCP Internal Medicine 01/12/22 04/05/22 documented as of this encounter
--- OUTSIDE RECORDS SUMMARY | 2024-07-26 08:36 | XMS_ITS | Encounter Summary ---
Author Organization [facility] Health Address [address] [facility] [place] [address] Care Team Providers Care Fruit Harvester Machine Operator Name Role Phone Taniya Grimes MD Primary Care Provider Rocio Barcenas MD Unavailable Adriana Adams DO Unavailable Eliane Tillman MD Primary Care Provider [phone] Joseph Manzanares MD Primary Care Provider Taniya Grimes MD Primary Care Provider Joseph Manzanares MD Primary Care Provider Tiana Naylor DO Unavailable [phone] Tiana Naylor DO Primary Care Provider Joseph Manzanares MD Unavailable Yaya Villatoro MD Primary Care Provider [phone] Encounter Details Date Type Department Care Team (Late st Contact Info) Description 01/28/2022 Telephone [facility] [address] [place] [address] Taniya Grimes MD [address] [address] Social History Tobacco Use Types [...] st Contact Info) Description 08/02/2024 2:20 PM LABORATORY TECHNOLOGY TEACHER Appointment [facility] [address] [place] [address] 08/02/2024 3:00 PM LABORATORY TECHNOLOGY TEACHER Office Visit [facility] - Hematology/Oncology [address] [place] [phone] Remi Beckett MD [address] [place] [address] 08/18/2024 1:45 PM LABORATORY TECHNOLOGY TEACHER Office Visit [facility] - ENT [address] [place] [phone] Neri Delgado MD [facility] [place] [address] 08/30/2024 2:20 PM LABORATORY TECHNOLOGY TEACHER Appointment [facility] [address] [place] [address] documented as of this encounter Visit Diagnoses Not on filedocumented in this encounter Care Teams Fruit Harvester Machine Operator Relationship Specialty Start Date End Date Taniya Grimes MD [address] [place] [address] [address] DIV OF [facility] [place] [phone] PCP - General 07/01/20 05/10/22 Eliane Tillman MD [address] [place] [phone] PCP - General 05/11/22 06/09/22 Joseph Manzanares MD [address] [place] [phone] PCP - General Internal Medicine 06/10/22 07/14/22 Taniya Grimes MD [address] [place] [address] 2L [facility] [place] [address] PCP - General 07/15/22 10/06/22 Joseph Manzanares MD [facility] [place] [phone] PCP - General Internal Medicine 10/07/22 04/20/23 Tiana Naylor DO [address] [place] [address] PCP - General Internal Medicine 04/21/23 05/03/23 Yaya Villatoro MD [address] [facility] [address] [place] [phone] PCP - General Internal Medicine 05/04/23 Rocio Barcenas MD [address] [place] [place] [phone] Resident - PCP Internal Medicine 01/12/22 04/05/22 Adriana Adams DO [address] [place] [phone] Resident - PCP Internal Medicine 04/06/22 01/12/23 Tiana Naylor DO [address] [place] [address] Resident - PCP Internal Medicine 01/13/23 04/20/23 Joseph Manzanares MD [address] [place] [phone] Internal Medicine 04/21/23 documented as of this encounter
--- OUTSIDE RECORDS SUMMARY | 2024-07-26 08:36 | XMS_ITS | Encounter Summary ---
Author Organization [facility] Health Address [address] [facility] [place] [address] Care Team Providers Care Threat Analyst Name Role Phone Taniya Grimes MD Primary Care Provider [phone] Rocio Barcenas MD Unavailable Reason for Visit * Reason Comments Refill Request Encounter Details Date Type Department Care Team (Late st Contact Info) Description 01/12/2022 Refill [facility] [address] [place] [address], [place] [address] Marylu Marie DO [address] [place] [address] OF [facility] [place] [address] Refill Request Social History Tobacco Use Types [...] st Contact Info) Description 08/02/2024 2:20 PM PRODUCER Appointment [facility] [address] [place] [address] 08/02/2024 3:00 PM PRODUCER Office Visit [facility] Group - Hematology/Oncology [address] [place] [phone] Remi Beckett MD [address] [place] [phone] 08/18/2024 1:45 PM PRODUCER Office [facility] - ENT [address] [place] [phone] Neri Delgado MD [address] [place] [address] 08/30/2024 2:20 PM PRODUCER Appointment [facility] [address] [place] [address] documented as of this encounter Visit Diagnoses Diagnosis Gastroesophageal reflux disease, unspecified whether esophagitis present documented in this encounter Care Teams Threat Analyst Relationship Specialty Start Date End Date Taniya Grimes MD [address] [place] [address] DIV OF [facility] [place] [address] PCP - General 07/01/20 05/10/22 Rocio Barcenas MD [address] [facility] [place] [address] Resident - PCP Internal Medicine 01/12/22 04/05/22 documented as of this encounter
--- OUTSIDE RECORDS SUMMARY | 2024-07-26 08:36 | XMS_ITS | Encounter Summary ---
Author Organization [facility] Health Address [address] [facility] [place] [address] Care Team Providers Care Technical Adjuster Name Role Phone Taniya Grimes MD Primary Care Provider Rocio Barcenas MD Unavailable Reason for Visit * Reason Comments Thyroid Problem THYROID CANCER HYPOT HYROIDISM S/P THYROIDECTOMY S/P RADIOACTIVE IODINE ABLATION ELEVATED THYROGLOBULIN S/P SECOND SURGERY Encounter Details Date Type Department Care Team (Latest Contact Info) Description 03/17/2022 4:00 PM CDT Office Visit [facility] Endocrinology, Diabetes and Metabolism [address] [place] [address], [place] [phone] Yosi Bustamante MD [address] [place] [address] [place] [address] Postoperative hypothyroidism (Primary Dx); Thyroid cancer (HCC); [...] option 1 or you can send a Bery[employer]ium message. Normal business hours are from 8:00 am to 4:30 pm Wednesday through Wednesday. Fax# is [phone]. REFILL REQUESTS: contact your pharmacy who will reach out to us. If you have changes to your prescription, you will need to contact us directly at [phone] and select option 3 or send your [employer]s message. We request that all prescription refills [...] next business day are given to the Mash Filter Press Operator physician supervisor bakery sanitation. Please call [phone] and identify yourself as a patient in our practice needing to speak to Mash Filter Press Operator. The bulk system operator will contact the physician supervisor bakery sanitation. You can generally expect a return call within 30 minutes. On weekends, physicians are seeing hospitalized patients and there may be a longer wait. Test and laboratory results: Our practice typically reports lab and test results through letters orMyChart. Please allow 10 days from when your tests are completed to receive the results in the mail. Labs performed outside of [facility] facility, [facility] or [facility] may delay the results getting to us. Please contact the lab and request that they are faxed to us at [phone]. IF GOING TO [facility] or [facility]- TAKE LAB ORDER WITH YOU or they may turn you away [facility]'s missed appointment policy is: Patients with 3 consecutively missed appointments OR 3 missed appointments in a 12 month period will no longer be seen by Endocrinology. They will be asked to seek consultation outside of [facility]. A missed appointment is defined as: Arriving to a scheduled appointment too late to be seen (Patients who arrive to clinic later than their scheduled appointment time may not be seen) Not showing up or calling 24-48 hours prior to an appointment An appointment cancelled less than 24 hours in advance ADDRESS: [address] [place] [address], [place] [address] Website: [email or web address] for additional information about [facility] and an interactive health encyclopedia. BP 131/92 [...] Chambers MD - 03/17/2022 6:08 PM CDT [facility] Endocrinology Follow up Note Date of Service- [...] ??on 12/25/2021 2:07 PM . ?? 03/24/2021 [facility] PROCEDURE: Post I-131 therapy whole [...] CAPSULE BY MOUTH TWICE A DAY ??? [id number]-KIZUSSSZM-OMWU PO Take by mouth once daily ??? [...] fluticasone propionate (FLONASE) 50 MCG/ACT nasal spray [place] 2 (two) sprays into each nostril once daily ??? gabapentin (NEURONTIN) 300 MG capsule TAKE 1 CAPSULE BY MOUTH THREE TIMES A DAY ??? JORUYO-GAQNRMUZX-DAR-C-HYAL PO Take 1 tablet by mouth 3 [...] results for input(s): MICROALBCREA in the last 16910 hours. Recent Labs Component Name 03/07/20 1519 [...] D.O. on 12/25/2021 2:07 PM . 03/24/2021 [facility] PROCEDURE: Post I-131 therapy whole [...] TWICE A DAY, Disp: 60 capsule, Rfl:11 [id number]-[id number]-ZDKP PO, Take by mouth once daily, Disp: [...] fluticasone propionate (FLONASE) 50 MCG/ACT nasal spray, [place] 2 (two) sprays into each nostril once daily, Disp: 48 g, Rfl: 0 gabapentin (NEURONTIN) 300 MG capsule, TAKE 1 CAPSULE BY MOUTH THREE TIMES A DAY, Disp: 90 capsule,Rfl: 5 MXCVWO-RNHNYRMCO-RHF-C-HYAL PO, Take 1 tablet by mouth 3 [...] st Contact Info) Description 08/02/2024 2:20 PM COMMUNICATIONS SUPERVISOR Appointment [address] [address] 08/02/2024 3:00 PM COMMUNICATIONS SUPERVISOR Office Visit [facility] - Hematology/Oncology [address] [place] [phone] [place] [address] [place] [phone] 08/18/2024 1:45 PM COMMUNICATIONS SUPERVISOR Office Visit [facility] - ENT [address] [place] [phone] Neri Delgado MD [address] [place] [address] 08/30/2024 2:20 PM COMMUNICATIONS SUPERVISOR Appointment [facility] [address] [place] [address] documented as of this encounter Results * (ABNORMAL) RENAL FUNCTION PANEL (03/19/2022 12:31 PM CDT) BUN 14 7 - 26 mg/dL 03/19/2022 1:36 PM [facility] Creatinine 0.81 0.56 - 0.96 mg/dL 03/19/2022 1:36 PM [facility] Sodium 140 136 - 145 mmol/L 03/19/2022 1:36 PM [facility] Potassium 4.2 3.5 - 4.5 mmol/L 03/19/2022 1:36 PM [facility] Chloride 103 98 - 107 mmol/L 03/19/2022 1:36 PM [facility] CO2 25 22 - 29 mmol/L 03/19/2022 1:36 PM [facility] Glucose 94 70 - 115 mg/dL 03/19/2022 1:36 PM [facility] Albumin 4.0 3.4 - 5.0 g/dL 03/19/2022 1:36 PM [facility] Calcium 8.9 8.4 - 10.2 mg/dL 03/19/2022 1:36 PM [facility] Phosphorus 4.9 2.9 - 5.1 mg/dL 03/19/2022 1:36 PM CDT [facility] Anion Gap 16 8 - 18 03/19/2022 1:36 PM CDT [facility] BUN/Creatinine Ratio 17 7 - 23 03/19/2022 1:36 PM T [facility] Osmolality Calculated 290 270 - 300 mOsm/kg 03/19/2022 1:36 PM CDT [facility] eGFR by CKD-EPI 82(L) >=90 mL/min/1.7 3 m2 03/19/2022 1:36 PM CDT [facility] Blood BLOOD SPECIMEN / Unknown Lab Venipuncture / Unknown 03/19/2022 12:31 PM CDT 03/19/2022 1:05 PM CDT Yosi Bustamante MD LAB - CHEMISTRY ORD ERABLES [facility] [address] [place] [address] [phone] documented in this encounter Visit Diagnoses Diagnosis Postoperative hypothyroidism- Primary Postsurgical hypothyroidism Thyroid cancer (HCC) Malignant neoplasm of thyroid gland Hypocalcemia Other hypoparathyroidism (HCC) documented in this encounter Care Teams Technical Adjuster Relationship Specialty Start Date End Date Taniya Grimes MD [address] [place] [phone] PCP - General 07/01/20 05/10/22 Rocio Barcenas MD [address] [facility] [place] [place] [phone] Resident - PCP Internal Medicine 01/12/22 04/05/22 documented as of this encounter
--- OUTSIDE RECORDS SUMMARY | 2024-07-26 08:36 | XMS_ITS | Encounter Summary ---
Author Organization [facility] Health Address [address] [facility] [place] [address] Care Team Providers Care Web Press Roll Tender Name Role Phone Taniya Grimes MD Primary Care Provider Rocio Barcenas MD Unavailable Reason for Visit * Radiology Services (Routine) - Closed Specialty Diagnoses / Procedures Referred By Yuan robins Referred To Contact MRI Diagnoses Nontraumatic tear of left rotator cuff, unspecified tear extent Procedures MRI SHOULDER LEFT WO CONTRAST Kami Willingham PA-C [address] [facility] 1L - DOOR 3,4 [place] [address] Referral ID Status Reason Start Date Expiration Date Visits Re quested Visits Authorized [id number] Closed 03/19/2022 03/19/2023 1 1 Encounter Details Date Type Department Care Team (Latest Contact Info) Description 03/29/2022 3:30 PM CDT - 03/29/2022 11:59 PM CDT Hospital Encounter [facility] MRI [address] [place] [address] Kami Willingham PA-C [address] [facility] 1L - DOOR 3,4 [place] [address] Discharge Disposition: Home or Self [...] A DAY 60 capsule 11 02/22/2022 05/28/2023 [id number]-[id number]-JITU PO Take by mouth once daily 06/13/2023 [...] fluticasone propionate (FLONASE) 50 MCG/ACT nasal spray Gilberts 2 (two) sprays into each nostril once daily 48 g 10/20/2021 11/25/2022 gabapentin (NEURONTIN) 300 MG capsuleIndications:Nicole stahl osteoarthritis of left hip TAKE 1 CAPSULE BY MOUTH THREE TIMES A DAY 90 capsule 5 10/08/2021 04/06/2022 DTWMES-RYSEWLGWK-JMZ-C -HYAL PO Take 1 tablet by mouth [...] st Contact Info) Description 08/02/2024 2:20 PM PERSONAL COACH Appointment [facility] [address] [place] [address] 08/02/2024 3:00 PM PERSONAL COACH Office Visit [facility] - Hematology/Oncology [address] [place] [phone] Remi Beckett MD [address] [place] [phone] 08/18/2024 1:45 PM PERSONAL COACH Office Visit [facility] - ENT [address] [place] [phone] Neri Delgado MD [address] [place] [address] 08/30/2024 2:20 PM PERSONAL COACH Appointment [facility] [address] [place] [address] documented as of this encounter Procedures Procedure [...] DATE/TIME OF EXAM: ??03/29/2022 4:40 PM, LOCATION ??[facility] INDICATION: M75.102: Nontraumatic tear of left [...] DATE/TIME OF EXAM: 03/29/2022 4:40 PM, LOCATION [facility] INDICATION: M75.102: Nontraumatic tear of left [...] extent documented in this encounter Care Teams Web Press Roll Tender Relationship Specialty Start Date End Date Taniya Griems MD [address] INTERNAL [place] [address] PCP - General 07/01/20 05/10/22 Rocio Barcenas MD [address] [place] [address] Resident - PCP Internal Medicine 01/12/22 04/05/22 documented as of this encounter
--- OUTSIDE RECORDS SUMMARY | 2024-07-26 08:36 | XMS_ITS | Encounter Summary ---
Author Organization [facility] Health Address [address] [facility] [address] Care Team Providers Care Sales Force Administrator Name Role Phone Taniya Grimes MD Primary [...] st Contact Info) Description 08/02/2024 2:20 PM VENEER SANDER Appointment [facility] [address] [place] [address] 08/02/2024 3:00 PM VENEER SANDER Office Visit [facility] - Hematology/Oncology [address] [place] [address] Remi Beckett MD [address] [place] [address] 08/18/2024 1:45 PM VENEER SANDER [facility] - [facility] [address] [place] [address] Neri Delgado MD [address] [place] [address] 08/30/2024 2:20 PM VENEER SANDER Appointment [facility] [address] [place] [address] documented as of this encounter Visit Diagnoses Not on filedocumented in this encounter Care Teams Sales Force Administrator Relationship Specialty Start Date End Date Taniya Grimes MD [address] DIV OF [facility] [place] [phone] PCP - General 07/01/20 05/10/22 Rocio Barcenas MD [address] [facility] [place] [address] Resident - PCP Internal Medicine 01/12/22 04/05/22 documented as of this encounter
--- OUTSIDE RECORDS SUMMARY | 2024-07-26 08:36 | XMS_ITS | Encounter Summary ---
Author Organization [facility] Address [address] [place] [address] Care Team Providers Care Software Configuration Specialist Name Role Phone Marylu Marie DO Unavailable [phone] Taniya Grimes MD Primary Care Provider Reason for Referral * Radiology Services (Routine) - Closed Specialty Diagnoses / Procedures Referred By Yuan robins Referred To Contact CT Scan Diagnoses Thyroid cancer (HCC) Procedures CT NECK [place] [address] [place] [address] [facility] [address] [place] [address] Referral ID Status Reason Start Date Expiration Date Visits Re quested Visits Authorized [id number] Closed 01/14/2022 01/14/2023 1 1 Encounter Details Date Type Department Care Team (Late st Contact Info) Description 01/08/2022 Orders Only [facility] Otolaryngology [address] [place] [phone] Neri Delgado MD [address] [place] [address] Thyroid cancer (HCC) Social History Tobacco Use [...] st Contact Info) Description 08/02/2024 2:20 PM BARREL TURNER Appointment [facility] [address] [place] [address] 08/02/2024 3:00 PM BARREL TURNER Office Visit [facility] Group - Hematology/Oncology [address] [place] [phone] [place] [address] [place] [phone] 08/18/2024 1:45 PM BARREL TURNER Office Visit [facility] - ENT [address] [place] [phone] Neri Delgado MD [address] [place] [address] 08/30/2024 2:20 PM BARREL TURNER Appointment [facility] [address] [place] [address] documented as of this encounter Results * [...] gland documented in this encounter Care Teams Software Configuration Specialist Relationship Specialty Start Date End Date Taniya Grimes MD [address] DIV OF [facility] [place] [address] PCP - General 07/01/20 05/10/22 Marylu Marie DO [address] DIV OF [facility] [place] [address] Resident - PCP Student Resident 06/26/20 01/11/22 documented as of this encounter
--- OUTSIDE RECORDS SUMMARY | 2024-07-26 08:36 | XMS_ITS | Encounter Summary ---
Author Organization [facility] Health Address [address] [facility] [place] [address] Care Team Providers Care Foster Care Case Manager Name Role Phone Taniya Grimes MD Primary Care Provider Rocio Barcenas MD Unavailable Reason for Visit * Reason Comments Refill Request Encounter Details Date Type Department Care Team (Late st Contact Info) Description 02/20/2022 Refill [facility] Endocrinology, Diabetes and Metabolism [address] [place] [address], [place] [phone] Yosi Bustamante MD [address] [place] [address] [place] [address] Refill Request Social History Tobacco Use Types [...] Contact Info) Description 08/02/2024 2:20 PM ADMINISTRATIVE SERVICES SPECIALIST Appointment [facility] [address] [place] [address] 08/02/2024 3:00 PM ADMINISTRATIVE SERVICES SPECIALIST Office Visit [facility] - Hematology/Oncology [address] [place] [phone] Remi Beckett MD [address] [place] [phone] 08/18/2024 1:45 PM ADMINISTRATIVE SERVICES SPECIALIST Office Visit [facility] - ENT [address] [place] [phone] Neri Delgado MD [address] [place] [address] 08/30/2024 2:20 PM ADMINISTRATIVE SERVICES SPECIALIST Appointment [facility] [address] [place] [address] documented as of this encounter Visit Diagnoses Diagnosis Postoperative hypothyroidism Postsurgical hypothyroidism Thyroid cancer (HCC) Malignant neoplasm of thyroid gland Hypocalcemia documented in this encounter Care Teams Foster Care Case Manager Relationship Specialty Start Date End Date Taniya Grimes MD [address] [place] [address] PCP - General 07/01/20 05/10/22 Rocio Barcenas MD [address] [place] [phone] Resident - PCP Internal Medicine 01/12/22 04/05/22 documented as of this encounter
--- OUTSIDE RECORDS SUMMARY | 2024-07-26 08:36 | XMS_ITS | Encounter Summary ---
Author Organization [facility] Health Address [address] [facility] [place] [address] Care Team Providers Care Supervisor Garage Name Role Phone Marylu Marie DO Unavailable [phone] Taniya Grimes MD Primary Care Provider Encounter [...] Contact Info) Description 08/02/2024 2:20 PM SUPERVISOR VENEER Appointment [facility] [address] [place] [address] 08/02/2024 3:00 PM SUPERVISOR VENEER Office Visit [facility] - Hematology/Oncology [address] [place] [phone] Remi Beckett MD [address] [place] [phone] 08/18/2024 1:45 PM SUPERVISOR VENEER Office Visit [facility] - ENT [address] [place] [phone] Neri Delgado MD [address] [place] [address] 08/30/2024 2:20 PM SUPERVISOR VENEER Appointment [facility] [address] [place] [address] documented as of this encounter Visit Diagnoses Not on filedocumented in this encounter Care Teams Supervisor Garage Relationship Specialty Start Date End Date Taniya Grimes MD [address] [facility] 2L DIV OF [facility] [place] [address] PCP - General 07/01/20 05/10/22 Marylu Marie DO [address] [facility] 2L DIV OF [facility] [place] [address] Resident - PCP Student Resident 06/26/20 01/11/22 documented as of this encounter
--- OUTSIDE RECORDS SUMMARY | 2024-07-26 08:37 | XMS_ITS | Encounter Summary ---
Author Organization [facility] Health Address [address] [place] [address] Care Team Providers Care Associate Property Manager Name Role Phone Marylu Marie DO Unavailable Taniya Grimes MD Primary Care Provider Reason for Visit * Reason Onset Date Comments Imaging 10/31/2021 Encounter Details Date Type Department Care Team (Late st Contact Info) Description 10/31/2021 Telephone [facility] General Internal Medicine [address] [place] [address], [place] [address] Taniya Grimes MD [address] [place] [address] [place] [address] Imaging Social History Tobacco Use [...] and asked if could have done at [facility] in [place], [place] since has had all other mammograms [...] st Contact Info) Description 08/02/2024 2:20 PM MELLOWING MACHINE OPERATOR Appointment [facility] [address] [place] [address] 08/02/2024 3:00 PM MELLOWING MACHINE OPERATOR Office Visit [facility] - Hematology/Oncology [address] [place] [phone] Remi Beckett MD [address] [place] [phone] 08/18/2024 1:45 PM MELLOWING MACHINE OPERATOR Office Visit [facility] - ENT [address] [place] [phone] Neri Delgado MD [address] [place] [address] 08/30/2024 2:20 PM MELLOWING MACHINE OPERATOR Appointment [facility] [address] [place] [address] documented as of this encounter Visit Diagnoses Not on filedocumented in this encounter Care Teams Associate Property Manager Relationship Specialty Start Date End Date Taniya Grimes MD [address] DIV OF [facility] [place] [address] PCP - General 07/01/20 05/10/22 Marylu Marie DO [address] DIV OF [facility] [place] [address] Resident - PCP Student Resident 06/26/20 01/11/22 documented as of this encounter
--- OUTSIDE RECORDS SUMMARY | 2024-07-26 08:37 | XMS_ITS | Encounter Summary ---
Author Organization [facility] Health Address [address] [facility] [address] [place] [address] Care Team Providers Care Travel Med Surg Rn Name Role Phone Marylu Marie DO Unavailable [phone] Taniya Grimes MD Primary Care Provider Encounter [...] st Contact Info) Description 08/02/2024 2:20 PM ETL SOFTWARE ENGINEER Appointment [facility] [address] [place] [address] 08/02/2024 3:00 PM ETL SOFTWARE ENGINEER Office Visit [facility] Group - Hematology/Oncology [address] [place] [phone] Remi Beckett MD [address] [place] [phone] 08/18/2024 1:45 PM ETL SOFTWARE ENGINEER Office Visit [facility] - ENT [address] [place] [phone] Neri Delgado MD [address] [place] [address] 08/30/2024 2:20 PM ETL SOFTWARE ENGINEER Appointment [facility] [address] [place] [address] documented as of this encounter Visit Diagnoses Not on filedocumented in this encounter Care Teams Travel Med Surg Rn Relationship Specialty Start Date End Date Taniya Grimes MD [address] [place] [address] 2L DIV OF [facility] [place] [address] PCP - General 07/01/20 05/10/22 Marylu Marie DO [address] [place] [address] 2L DIV OF [facility] [place] [address] Resident - PCP Student Resident 06/26/20 01/11/22 documented as of this encounter
--- OUTSIDE RECORDS SUMMARY | 2024-07-26 08:37 | XMS_ITS | Encounter Summary ---
Author Organization [facility] Health Address [address] [place] [address] Care Team Providers Care Bisque Tile Burner Name Role Phone Marylu Marie DO Unavailable [phone] Taniya Grimes MD Primary Care Provider Reason for Visit * Reason Comments MEDICATION REFILL Medication Issue Encounter Details Date Type Department Care Team (Late st Contact Info) Description 10/29/2021 1:30 PM CDT Office Visit [facility] Internal Medicine [address] [place] [address], [place] [address] Marylu Marie DO [address] [place] [address] [place] [address] Dysuria (Primary Dx); Acute cystitis without hematuria; [...] Jessica Shukla - 10/29/2021 1:18 PM CDT [facility] Internal Medicine is a Patient Centered Medical Home (PCMH) recognized practice. PCMH is a model of care that puts patients at the forefront of care. PCMH centers build better relationships between patients and their clinical care teams. Practices that earn this recognition have made a commitment to continuous quality improvement and a patient-centered approach to care. [facility] Internal Medicine is committed to providing [...] for your doctor, the office phone is [phone]. You will be given options to get [...] primary care provider. Please call us at [phone], option 1, then option 1 in the morning you would like to be seen. Our fax number is [phone]. Instructions for reaching the practice after office hours For urgent concerns that cannot wait until phone lines are open on the next business day, please call [phone] to speak to the covering General Internal Medicine provider. Identify yourself as a patient in our practice and give the electrostatic paint operator your doctor's name. The electrostatic paint operator will contact the physician hearing care professional. You can generally expect a return call within 30 minutes. Prescription Refills Contact your pharmacy to request all refills. You may also send a [employer] message for refills. Please allow a minimum of 48-72 hours for your prescription to be completed. Your pharmacy will notify you when your prescription is ready to be picked up. SCHEDULE YOUR OWN APPOINTMENT AT [facility] We are excited to announce that some [facility] appointments can now be scheduled online. If you are not able to access the type of appointment that you need using this service, our [facility] Scheduling department will be happy to continue to serve you. Use one of these options to schedule your next appointment today: Access self-scheduling options by visiting the [facility] Online Scheduling Webpage. Make an appointment by calling [facility] Central [phone] Visit our website at [email or web address] for information about our practice and an interactive health encyclopedia. documented in this encounter Progress Notes * Marylu Marie DO - 10/29/2021 1:34 PM CDT [facility] Internal Medicine Established Patient Note CC: Chief [...] cancer s/p resection and radioactive ablation presentingto GI clinic for routine follow up. No recent hospitalizations or illnesses. Increased periods of sadness and tearfulness. Son just out of detention. was in the hospital now s/p cardiac [...] Past Medical/Surgical/Family/Social History: Reviewed and updated in [facility] History tab Medications: Reviewed and updated in [facility] Medications tab Current Outpatient Medications Medication [...] fluticasone propionate (FLONASE) 50 MCG/ACT nasal spray [place] 2 (two) sprays into each nostril once daily 48 g 0 ??? gabapentin (NEURONTIN) 300 MG capsule TAKE 1 CAPSULE BY MOUTH THREE TIMES A DAY 90 capsule 5 ??? [id number]-C-[id number] PO Take 1 tablet by mouth 3 [...] WBC, 10 RBC No nitrites Lab Preference: [address] [address] Marylu Marie DO 10/29/2021 Coding Rationale New or est? Established Patient Highest problem complexity: 1 acute, uncomplicated illness or injury and 2 or more stable chronic illnesses Data review: Review of result(s): Ordering of test(s): 1 unique test(s) ordered Highest level of risk: Moderate Suggested code: 50780 Associated attestation - Andria Anaya DO - [...] st Contact Info) Description 08/02/2024 2:20 PM BIT AND SHANK DEPARTMENT SUPERVISOR Appointment [facility] [address] [place] [address] 08/02/2024 3:00 PM BIT AND SHANK DEPARTMENT SUPERVISOR Office Visit [facility] Physician Group - Hematology/Oncology [facility] [place] [phone] Remi Beckett MD [facility] [place] [phone] 08/18/2024 1:45 PM BIT AND SHANK DEPARTMENT SUPERVISOR Office Visit [facility]ician [facility] - ENT [address] [place] [phone] Neri Delgado MD [address] [place] [address] 08/30/2024 2:20 PM BIT AND SHANK DEPARTMENT SUPERVISOR Appointment [facility] [address] [place] [address] documented as of this encounter Procedures Procedure Name Priority Date/Time Associated Diagnosis Comments URINALYSIS - POINT OF CARE (AMB) [facility] Routine 10/29/2021 Dysuria documented in this encounter Results * URINALYSIS - POINT OF CARE (AMB) [facility] (10/29/2021) Specific [place] UA 1.015 [facility] pH UA 6.0 [...] - POINT OF CARE ORDERABLES [facility] [address] [facility] [place] [address] documented in this encounter Visit Diagnoses Diagnosis Dysuria- Primary Acute cystitis without hematuria Acute cystitis Tobacco use disorder Encounter for screening mammogram for breast cancer Depression, unspecified depression type documented in this encounter Care Teams Bisque Tile Burner Relationship Specialty Start Date End Date Taniya Grimes MD [address] [place] [address] DIV OF [facility] [place] [address] PCP - General 07/01/20 05/10/22 Marylu Marie DO [address] OF [facility] [place] [address] Resident - PCP Student Resident 06/26/20 01/11/22 documented as of this encounter
--- OUTSIDE RECORDS SUMMARY | 2024-07-26 08:37 | XMS_ITS | Encounter Summary ---
Author Organization [facility] Health Address [address] [facility] [place] [address] Care Team Providers Care Window Repairer Name Role Phone Marylu Marie DO Unavailable [phone] Taniya Grimes MD Primary Care Provider Reason for Visit * Reason Onset Date Comments Pain Arm 12/16/2021 Numbness 12/16/2021 [place] 12/16/2021 Encounter Details Date Type Department Care Team (Late st Contact Info) Description 12/16/2021 Telephone [facility] General Internal Medicine [address] [place] [address], [place] [address] Taniya Grimes MD [address] [place] [address] DIV OF [facility] [place] [address] Pain Arm; Numbness; [place] Social History Tobacco [...] were not included. Called Nolvia in scheduling [phone] and informed of message below from provider and states will call carir. Wilma Briceño MD You 2 hours ago [...] st Contact Info) Description 08/02/2024 2:20 PM CREATIVE ASSISTANT Appointment [facility] [address] [place] [phone] 08/02/2024 3:00 PM CREATIVE ASSISTANT [facility] - [facility]ology/Oncology [address] [place] [address] Remi Beckett MD [address] [place] [address] 08/18/2024 1:45 PM CREATIVE ASSISTANT Office Visit [facility] - ENT [address] [place] [address] Neri Delgado MD [address] [place] [address] 08/30/2024 2:20 PM CREATIVE ASSISTANT Appointment [facility] [address] [place] [address] documented as of this encounter Visit Diagnoses Not on filedocumented in this encounter Care Teams Window Repairer Relationship Specialty Start Date End Date Taniya Grimes MD [address] [facility] 2L DIV OF [facility] [place] [address] PCP - General 07/01/20 05/10/22 [place] [address] [place] [address] 2L DIV OF [facility] [place] [address] Resident - PCP Student Resident 06/26/20 01/11/22 documented as of this encounter
--- OUTSIDE RECORDS SUMMARY | 2024-07-26 08:37 | XMS_ITS | Encounter Summary ---
Author Organization [facility] Health Address [address] [facility] [place] [address] Care Team Providers Care Tableau Lead Name Role Phone Marylu Marie DO Unavailable [phone] Taniya Grimes MD Primary Care Provider Reason for Visit * Reason Comments Pain Arm left arm pain Encounter Details Date Type Department Care Team (Late st Contact Info) Description 12/18/2021 1:30 PM CDT Office Visit [facility] General Internal Medicine [address] [facility] [place] [address] Wilma Briceño MD [address] [place], [place] [phone] Arm weakness (Primary Dx) Social History Tobacco [...] Jessica Shukla - 12/18/2021 1:47 PM CDT [facility] Internal Medicine is a Patient Centered Medical Home (PCMH) recognized practice. PCMH is a model of care that puts patients at the forefront of care. PCMH centers build better relationships between patients and their clinical care teams. Practices that earn this recognition have made a commitment to continuous quality improvement and a patient-centered approach to care. [facility] Internal Medicine is committed to providing [...] for your doctor, the office phone is [phone]. You will be given options to get [...] primary care provider. Please call us at [phone], option 1, then option 1 in the morning you would like to be seen. Our fax number is [phone]. Instructions for reaching the practice after office hours For urgent concerns that cannot wait until phone lines are open on the next business day, please call [phone] to speak to the covering General Internal Medicine provider. Identify yourself as a patient in our practice and give the mud jack operator your doctor's name. The mud jack operator will contact the physician demolition hammer operator. You can generally expect a return call within 30 minutes. Prescription Refills Contact your pharmacy to request all refills. You may also send a [employer] message for refills. Please allow a minimum of 48-72 hours for your prescription to be completed. Your pharmacy will notify you when your prescription is ready to be picked up. SCHEDULE YOUR OWN APPOINTMENT AT [facility] We are excited to announce that some [facility] appointments can now be scheduled online. If you are not able to access the type of appointment that you need using this service, our [facility] Scheduling department will be happy to continue to serve you. Use one of these options to schedule your next appointment today: Access self-scheduling options by visiting the [facility] Online Scheduling Webpage. Make an appointment by calling [facility] Central [phone] Visit our website at [email or web address] for information about our practice and an interactive health encyclopedia. documented in this encounter Progress Notes * Wilma Briceño MD - 12/18/2021 2:00 PM CDT [facility] General Internal Medicine Acute Care Patient Note CC: Chief Complaint Patient presents with ??? Pain Arm left arm pain History of Present Illness: Brisa Hogan is a 61 year old female presenting to GI clinic for arm pain. Has had chronic [...] fluticasone propionate (FLONASE) 50 MCG/ACT nasal spray [place] 2 (two) sprays into each nostril once daily 48 g 0 ??? gabapentin (NEURONTIN) 300 MG capsule TAKE 1 CAPSULE BY MOUTH THREE TIMES A DAY 90 capsule 5 ??? [id number]-C-[id number] PO Take 1 tablet by mouth 3 [...] st Contact Info) Description 08/02/2024 2:20 PM RADIO DIRECTOR Appointment [facility] [address] [place] [address] 08/02/2024 3:00 PM RADIO DIRECTOR Office Visit [facility] Physician Group - Hematology/Oncology [address] [place] [phone] Remi Beckett MD [address] [place] [phone] 08/18/2024 1:45 PM RADIO DIRECTOR Office Visit [facility] Physician Group - ENT [address] [place] [phone] Neri Delgado MD [address] [place] [address] 08/30/2024 2:20 PM RADIO DIRECTOR Appointment [facility] [address] [place] [address] documented as of this encounter Visit Diagnoses Diagnosis Arm weakness- Primary Other musculoskeletal symptoms referable to limbs documented in this encounter Care Teams Tableau Lead Relationship Specialty Start Date End Date Taniya Grimes MD [address] [place] [address] DIV OF [facility] [place] [phone] PCP - General 07/01/20 05/10/22 Marylu Marie DO [address] [place] [address] Resident - PCP Student Resident 06/26/20 01/11/22 documented as of this encounter
--- OUTSIDE RECORDS SUMMARY | 2024-07-26 08:37 | XMS_ITS | Encounter Summary ---
Author Organization [facility] Health Address [address] [facility] [place] [address] Care Team Providers Care Transportation Clerk Name Role Phone Marylu Marie DO Unavailable Taniya Grimes MD Primary Care Provider Reason for Visit * Reason Onset Date Comments Medication Issue 11/14/2021 Encounter Details Date Type Department Care Team (Late st Contact Info) Description 11/14/2021 Telephone [facility] General Internal Medicine [address] [place] [address], [place] [address] Taniya Grimes MD [address] [place] [address] [place] [address] Medication Issue Social History Tobacco [...] Prior auth request submitted on line at [employer]. Office notes submitted with request . Waiting for insurance response. Cover My Meds perez:[id number] documented in this encounter Plan of Treatment Upcoming Encounters Date Type Department Care Team (Late st Contact Info) Description 08/02/2024 2:20 PM TRUCK SHOP SUPERVISOR Appointment [facility] [address] [place] [address] 08/02/2024 3:00 PM TRUCK SHOP SUPERVISOR Office Visit [facility] Physician Group - Hematology/Oncology [address] [place] [phone] Remi Beckett MD [address] [place] [phone] 08/18/2024 1:45 PM TRUCK SHOP SUPERVISOR Office Visit [facility] - ENT [address] [place] [phone] Neri Delgado MD [address] [place] [address] 08/30/2024 2:20 PM TRUCK SHOP SUPERVISOR Appointment [facility] [address] [place] [address] documented as of this encounter Visit Diagnoses Not on filedocumented in this encounter Care Teams Transportation Clerk Relationship Specialty Start Date End Date Taniya Grmies MD [address] [place] [address] OF [facility] [place] [address] PCP - General 07/01/20 05/10/22 Marylu Marie DO [address] OF [facility] [place] [address] Resident - PCP Student Resident 06/26/20 01/11/22 documented as of this encounter
--- OUTSIDE RECORDS SUMMARY | 2024-07-26 08:37 | XMS_ITS | Encounter Summary ---
Author Organization [facility] Health Address [address] [facility] [place] [address] Care Team Providers Care Liner Helper Name Role Phone Marylu Marie DO Unavailable Taniya Grimes MD Primary Care Provider Reason for Visit * Reason Onset Date Comments Urinary frequency 11/17/2021 Encounter Details Date Type Department Care Team (Late st Contact Info) Description 11/17/2021 Telephone [facility] Internal Medicine [address] [place] [address], [place] [address] Taniya Grimes MD [address] [place] [address] [place] [address] Urinary frequency Social History Tobacco [...] st Contact Info) Description 08/02/2024 2:20 PM ROOFING APPLICATOR Appointment [facility] [address] [place] [address] 08/02/2024 3:00 PM ROOFING APPLICATOR Office Visit [facility] Physician Group - Hematology/Oncology [address] [place] [address] Remi Beckett MD [address] [place] [phone] 08/18/2024 1:45 PM ROOFING APPLICATOR Office Visit [facility] Physician Group - ENT [address] [place] [phone] Neri Delgado MD [address] [place] [address] 08/30/2024 2:20 PM ROOFING APPLICATOR Appointment [facility] [address] [place] [address] documented as of this encounter Visit Diagnoses Not on filedocumented in this encounter Care Teams Liner Helper Relationship Specialty Start Date End Date Taniya Grimes MD [address] [place] [address] 2L DIV OF [facility] [place] [phone] PCP - General 07/01/20 05/10/22 Marylu Marie DO [address] [place] [address] [address] [address] Resident - PCP Student Resident 06/26/20 01/11/22 documented as of this encounter
--- OUTSIDE RECORDS SUMMARY | 2024-07-26 08:37 | XMS_ITS | Encounter Summary ---
Author Organization [facility] Address [address] [facility] [place] [address] Care Team Providers Care Marine Firefighter Name Role Phone Marylu Marie DO Unavailable [phone] Taniya Grimes MD Primary Care Provider Reason for Referral * Radiology Services (Routine) - Closed Specialty Diagnoses / Procedures Referred By Contac t Referred To Contact Positron Emission Tomography Diagnoses Thyroid cancer (HCC) Postoperative hypothyroidism Procedures PET CT WHOLE BODY Yosi Fox MD [address] [place] [address] [address] [place] [address] [facility] Pet Op [address] [place] [address] Referral ID Status Reason Start Date Expiration Date Visits Re quested Visits Authorized [id number] Closed 12/22/2021 12/22/2022 1 1 Encounter Details Date Type Department Care Team (Late st Contact Info) Description 12/10/2021 Orders Only [facility] Endocrinology, Diabetes and Metabolism [address] [facility], [place] [address] Yosi Fox MD [address] [place] [address] 2L Div [place], [place] [phone] Thyroid cancer (HCC) ; Postoperative hypothyroidism Social [...] st Contact Info) Description 08/02/2024 2:20 PM ENCODING MACHINE OPERATOR Appointment [facility] [address] [place] [address] 08/02/2024 3:00 PM ENCODING MACHINE OPERATOR Office Visit [facility] Physician Group - Hematology/Oncology [address] [place] [phone] Remi Beckett MD [address] [place] [phone] 08/18/2024 1:45 PM ENCODING MACHINE OPERATOR Office Visit [facility] - ENT [address] [place] [phone] Neri Delgado MD [address] [place] [address] 08/30/2024 2:20 PM ENCODING MACHINE OPERATOR Appointment [facility] [address] [place] [address] documented as of this encounter Results * [...] on12/25/2021 2:07 PM . Yosi Fox MD [place] ORDERABLES documented in this encounter Visit Diagnoses Diagnosis Thyroid cancer (HCC)- Primary Malignant neoplasm of thyroid gland Postoperative hypothyroidism Postsurgical hypothyroidism Thyroid cancer (HCC) Malignant neoplasm of thyroid gland Postoperative hypothyroidism Postsurgical hypothyroidism documented in this encounter Care Teams Marine Firefighter Relationship Specialty Start Date End Date Taniya Grimes MD [address] 2L DIV OF [facility] [place] [address] PCP - General 07/01/20 05/10/22 Marylu Marie DO [address] DIV OF [facility] [place] [address] Resident - PCP Student Resident 06/26/20 01/11/22 documented as of this encounter
--- OUTSIDE RECORDS SUMMARY | 2024-07-26 08:37 | XMS_ITS | Encounter Summary ---
Author Organization [facility] Health Address [address] [place] [address] Care Team Providers Care Trench Digger Name Role Phone Marylu Marie DO Unavailable Taniya Grimes MD Primary Care Provider Reason for Visit * Reason Onset Date Comments MEDICATION REFILL 11/11/2021 Encounter Details Date Type Department Care Team (Late st Contact Info) Description 11/11/2021 Refill [facility] General Internal Medicine [address] [place] [address], [place] [address] Marylu Marie DO [address] [place] [address] [place] [address] MEDICATION REFILL Social History Tobacco Use Types [...] st Contact Info) Description 08/02/2024 2:20 PM STAPLE PROCESSING MACHINE OPERATOR Appointment [facility] [address] [place] [address] 08/02/2024 3:00 PM STAPLE PROCESSING MACHINE OPERATOR Office Visit [facility] - Hematology/Oncology [address] [place] [phone] Remi Beckett MD [address] [place] [address] 08/18/2024 1:45 PM STAPLE PROCESSING MACHINE OPERATOR Office Visit [facility] - ENT [address] [place] [address] Neri Delgado MD [address] [place] [address] 08/30/2024 2:20 PM STAPLE PROCESSING MACHINE OPERATOR Appointment [facility] [address] [place] [address] documented as of this encounter Visit Diagnoses Diagnosis Allergic rhinitis, unspecified seasonality, unspecified trigger documented in this encounter Care Teams Trench Digger Relationship Specialty Start Date End Date Taniya Grimes MD [facility] 2L DIV OF [facility] [place] [address] PCP - General 07/01/20 05/10/22 Marylu Marie DO [address] [place] [address] 2L DIV OF [facility] [place] [address] Resident - PCP Student Resident 06/26/20 01/11/22 documented as of this encounter
--- OUTSIDE RECORDS SUMMARY | 2024-07-26 08:37 | XMS_ITS | Encounter Summary ---
Author Organization [facility] Address [address] [place] [address] Care Team Providers Care Geology Professor Name Role Phone Marylu Marie DO Unavailable [phone] Taniya Grimes MD Primary Care Provider Encounter [...] st Contact Info) Description 08/02/2024 2:20 PM AIX SYSTEM ADMINISTRATOR Appointment [facility] [address] [place] [address] 08/02/2024 3:00 PM AIX SYSTEM ADMINISTRATOR Office Visit [facility] - Hematology/Oncology [address] [place] [phone] Remi Beckett MD [address] [place] [phone] 08/18/2024 1:45 PM AIX SYSTEM ADMINISTRATOR Office Visit [facility] - ENT [address] [place] [phone] Neri Delgado MD [address] [place] [address] 08/30/2024 2:20 PM AIX SYSTEM ADMINISTRATOR Appointment [facility] [address] [place] [address] documented as of this encounter Visit Diagnoses Not on filedocumented in this encounter Care Teams Geology Professor Relationship Specialty Start Date End Date Taniya Grimes MD [address] [facility] 2[address] DIV OF [facility] [place] [address] PCP - General 07/01/20 05/10/22 Marylu Marie DO [address] [facility] [address] DIV OF [facility] [place] [address] Resident - PCP Student Resident 06/26/20 01/11/22 documented as of this encounter
--- OUTSIDE RECORDS SUMMARY | 2024-07-26 08:37 | XMS_ITS | Encounter Summary ---
Author Organization [facility] Address [address] [facility] [place] [address] Care Team Providers Care Funeral Professional Name Role Phone Marylu Marie DO Unavailable Taniya Grimes MD Primary Care Provider Reason for Visit * Radiology Services (Routine) - Closed Specialty Diagnoses / Procedures Referred By Contac t Referred To Contact Positron Emission Tomography Diagnoses Thyroid cancer (HCC) Postoperative hypothyroidism Procedures PET CT WHOLE BODY Yosi Fox MD [address] [place] [address] 2[place] [address] [facility] Pet Op [address] [place] [address] Referral ID Status Reason Start Date Expiration Date Visits Re quested Visits Authorized [id number] Closed 12/22/2021 12/22/2022 1 1 Encounter Details Date Type Department Care Team (Latest Contact Info) Description 12/25/2021 11:27 AM CDT - 12/25/2021 11:59 PM CDT Hospital Encounter [facility] [address] [place] [address] Yosi Fox MD [address] [place] [address] 2[address] [place] [address] Discharge Disposition: Home or Self Care Social [...] fluticasone propionate (FLONASE) 50 MCG/ACT nasal spray [place] 2 (two) sprays into each nostril once daily 48 g 10/20/2021 11/25/2022 gabapentin (NEURONTIN) 300 MG capsuleIndications:Prima ry osteoarthritis of left hip TAKE 1 CAPSULE BY MOUTH THREE TIMES A DAY 90 capsule 5 10/08/2021 04/06/2022 CGLZOE-AKSOVOZDZ-JLE-C-H YAL PO Take 1 tablet by mouth [...] st Contact Info) Description 08/02/2024 2:20 PM RESPIRATORY SUPPORT TECHNICIAN Appointment [facility] [address] [place] [address] 08/02/2024 3:00 PM RESPIRATORY SUPPORT TECHNICIAN Office Visit [facility] - Hematology/Oncology [address] [place] [phone] Remi Beckett MD [address] [place] [phone] 08/18/2024 1:45 PM RESPIRATORY SUPPORT TECHNICIAN Office Visit [facility] - ENT [address] [place] [phone] Neir Delgado MD [address] [place] [address] 08/30/2024 2:20 PM RESPIRATORY SUPPORT TECHNICIAN Appointment [facility] [address] [place] [address] documented as of this encounter Procedures Procedure [...] filedocumented in this encounter Care Teams Funeral Professional Relationship Specialty Start Date End Date Taniya Grimes MD [address] 2[address] DIV OF [place] [address] PCP - General 07/01/20 05/10/22 Marylu Marie DO [address] 2[address] DIV OF [facility] [place] [address] Resident - PCP Student Resident 06/26/20 01/11/22 documented as of this encounter
--- OUTSIDE RECORDS SUMMARY | 2024-07-26 08:37 | XMS_ITS | Encounter Summary ---
Author Organization [facility] Address [address] [place] [address] Care Team Providers Care Dyed Raw Stock Blower Feeder Name Role Phone FrankMarylu DO Unavailable Taniya Grimes MD Primary Care Provider [phone] Reason for Referral * Radiology Services (Routine) - Closed Specialty Diagnoses / Procedures Referred By Contac t Referred To Contact Positron Emission Tomography Diagnoses Thyroid cancer (HCC) Postoperative hypothyroidism Procedures PET CT WHOLE BODY Yosi Fox MD [address] [place] [address] [address] [place] [address] [facility] [address] [place] [address] Referral ID Status Reason Start Date Expiration Date Visits Re quested Visits Authorized [id number] Closed 12/22/2021 12/22/2022 1 1 Reason for Visit * Radiology Services (Routine) - Closed Specialty Diagnoses / Procedures Referred By Contac t Referred To Contact Positron Emission Tomography Diagnoses Thyroid cancer (HCC) Postoperative hypothyroidism Procedures PET CT WHOLE BODY Yosi Fox MD [address] [place] [address] [address] [place] [address] [facility] Op [address] [place] [address] Referral ID Status Reason Start Date Expiration Date Visits Re quested Visits Authorized [id number] Closed 12/22/2021 12/22/2022 1 1 Encounter Details Date Type Department Care Team (Latest Contact Info) Description 12/25/2021 11:14 AM CDT - 12/25/2021 11:26 AM CDT Hospital Encounter [facility] PET [address] [place] [address] Yosi Fox MD [address] [place] [address] Discharge Disposition: Home or Self Care Social [...] fluticasone propionate (FLONASE) 50 MCG/ACT nasal spray [place] 2 (two) sprays into each nostril once daily 48 g 10/20/2021 11/25/2022 gabapentin (NEURONTIN) 300 MG capsuleIndications:Prima ry osteoarthritis of left hip TAKE 1 CAPSULE BY MOUTH THREE TIMES A DAY 90 capsule 5 10/08/2021 04/06/2022 WUDVIN-UXIXCZLIJ-AFA-C-H YAL PO Take 1 tablet by mouth [...] st Contact Info) Description 08/02/2024 2:20 PM CARETAKER RESORT Appointment [facility] [address] [place] [address] 08/02/2024 3:00 PM CARETAKER RESORT Office Visit [facility] - Hematology/Oncology [address] [place] [phone] Remi Beckett MD [address] [place] [phone] 08/18/2024 1:45 PM CARETAKER RESORT Office Visit [facility] - ENT [address] [place] [phone] Neri Delgado MD [address] [place] [address] 08/30/2024 2:20 PM CARETAKER RESORT Appointment [facility] [address] [place] [address] documented as of this encounter Procedures Procedure Name Priority Date/Time Associated Diagnosis Comments PET CT WHOLE BODY Routine 12/25/2021 1:2 3 PM CDT Thyroid cancer (HCC) Postoperative hypothyroidism GLUCOSE SCREEN - POCT (IP) [facility] STAT 12/25/2021 11:56 AM CDT documented in [...] 12/25/2021 1:54 PM . I, Dr. DIANDRA MOSELEY, D.O. have personally reviewed and interpreted this [...] PM . Yosi Fox MD NM ORDERABLES * GLUCOSE SCREEN - POCT (IP) [facility] (12/25/2021 11:56 AM CDT) Glucose WB/POC 101 70 - 115 mg/dL [facility] POCT TESTING Blood BLOOD SPECIMEN / Unknown 12/25/2021 11:56 AM CDT Yosi Fox MD LAB - POINT OF CARE ORDERABLES [facility] POCT TESTING [address] [place] [address], [facility] [phone] documented in this encounter Visit Diagnoses Diagnosis [...] millicuries documented in this encounter Care Teams Dyed Raw Stock Blower Feeder Relationship Specialty Start Date End Date Taniya Grimes MD [address] [place] [address] OF [facility] [place] [phone] PCP - General 07/01/20 05/10/22 Marylu Marie DO [address] [place] [address] Resident - PCP Student Resident 06/26/20 01/11/22 documented as of this encounter
--- OUTSIDE RECORDS SUMMARY | 2024-07-26 08:37 | XMS_ITS | Encounter Summary ---
Author Organization [facility] Address [address] [facility] [address] Care Team Providers Care Engineer Geophysical Laboratory Name Role Phone Marylu Marie DO Unavailable Taniya Grimes MD Primary Care Provider Reason for Visit * Reason Comments Thyroid Problem THYROID CANCER HYPOT HYROIDISM Encounter Details Date Type Department Care Team (Latest Contact Info) Description 12/08/2021 8:00 AM CDT Office Visit [facility] Endocrinology, Diabetes and Metabolism [address] [place] [address], [place] [phone] Yosi Bustamante MD [address] [place] [address] [place] [address] Postoperative hypothyroidism (Primary Dx); Thyroid cancer (HCC); [...] option 1 or you can send a [employer] message. Normal business hours are from 8:00 am to 4:30 pm Wednesday through Wednesday. Fax# is [phone]. REFILL REQUESTS: contact your pharmacy who will reach out to us. If you have changes to your prescription, you will need to contact us directly at [phone] and select option 3 or send your [employer] message. We request that all prescription refills [...] next business day are given to the M[facility] physician production statistical clerk. Please call [phone] and identify yourself as a patient in our practice needing to speak to Mft. The tool machine set up operator will contact the physician production statistical clerk. You can generally expect a return call within 30 minutes. On weekends, physicians are seeing hospitalized patients and there may be a longer wait. Test and laboratory results: Our practice typically reports lab and test results through letters orMyChart. Please allow 10 days from when your tests are completed to receive the results in the mail. Labs performed outside of [facility] facility, [facility] or [facility] may delay the results getting to us. Please contact the lab and request that they are faxed to us at [phone]. IF GOING TO [facility] or [facility]- TAKE LAB ORDER WITH YOU or they may turn you away [facility]'s missed appointment policy is: Patients with 3 consecutively missed appointments OR 3 missed appointments in a 12 month period will no longer be seen by Endocrinology. They will be asked to seek consultation outside of [facility]. A missed appointment is defined as: Arriving to a scheduled appointment too late to be seen (Patients who arrive to clinic later than their scheduled appointment time may not be seen) Not showing up or calling 24-48 hours prior to an appointment An appointment cancelled less than 24 hours in advance ADDRESS: [address] [place] [address], [place] [address] Website: [email or web address] for additional information about [facility] and an interactive health encyclopedia. BP 132/76 [...] 0.0 - 0.9 IU/mL <1.0 [4] Specific [place] UA 1.015 PH UA 6.0 Protein UA - NEG Blood Urine POCT +- 10Ery/uL Ketones UA POCT - NEG Nitrite UA - NEG Glucose UA - NEG Bilirubin UA POCT -NEG Urobilinogen UA - 0.2 mg/dL WBC UA 3+ 500 [place]/uL [facility] Reference Range & Units 02/14/21 12:30 03/17/21 [...] fluticasone propionate (FLONASE) 50 MCG/ACT nasal spray, [place] 2 (two) sprays into each nostril once daily, Disp: 48 g, Rfl: 0 gabapentin (NEURONTIN) 300 MG capsule, TAKE 1 CAPSULE BY MOUTH THREE TIMES A DAY, Disp: 90 capsule,Rfl: 5 DBSVXA-SDVBIXBOW-SQW-C-HYAL PO, Take 1 tablet by mouth 3 [...] Contact Info) Description 08/02/2024 2:20 PM CUSTOMER CARE MANAGER Appointment [facility] [address] [place] [address] 08/02/2024 3:00 PM CUSTOMER CARE MANAGER Office Visit [facility] - Hematology/Oncology [address] [place] [phone] Remi Beckett MD [address] [place] [phone] 08/18/2024 1:45 PM CUSTOMER CARE MANAGER Office Visit [facility] - ENT [address] [place] [phone] Neri Delgado MD [address] [place] [address] 08/30/2024 2:20 PM CUSTOMER CARE MANAGER Appointment [facility] [address] [place] [address] documented as of this encounter Results * (ABNORMAL) RENAL FUNCTION PANEL (12/08/2021 9:12 AM CDT) BUN 16 7 - 26 mg/dL 12/08/2021 10:17 AM CDT [facility] Creatinine 0.82 0.56 - 0.96 mg/dL 12/08/2021 10:17 AM [facility] Sodium 140 136 - 145 mmol/L 12/08/2021 10:17 AM [facility] Potassium 4.6(H) 3.5 - 4.5 mmol/L 12/08/2021 10:17 AM [facility] Chloride 106 98 - 107 mmol/L 12/08/2021 10:17 AM [facility] CO2 22 22 - 29 mmol/L 12/08/2021 10:17 AM [facility] Glucose 95 70 - 115 mg/dL 12/08/2021 10:17 AM [facility] Albumin 4.0 3.4 - 5.0 g/dL 12/08/2021 10:17 AM [facility] Calcium 8.0(L) 8.4 - 10.2 mg/dL 12/08/2021 10:17 AM [facility] Phosphorus 4.9 2.9 - 5.1 mg/dL 12/08/2021 10:17 AM [facility] Anion Gap 17 8 - 18 12/08/2021 10:17 AM [facility] BUN/Creatinine Ratio 20 7 - 23 12/08/2021 10:17 AM [facility] Osmolality Calculated 291 270 - 300 mOsm/kg 12/08/2021 10:17 AM [facility] eGFR by CKD-EPI 80(L) >=90 mL/min/1.7 3 m2 12/08/2021 10:17 AM [facility] Blood BLOOD SPECIMEN / Unknown Lab Venipuncture / Unknown 12/08/2021 9:12 AM CDT 12/08/2021 9:25 AM T Yosi Bustamante MD LAB - CHEMISTRY ORD ERABLES [facility] [address] [place] [phone], [facility] [phone] * THYROGLOBULIN REFLEX PROFILE (12/08/2021 9:12 AM T) Thyroglobulin Antibody <1.0 0.0 - 0.9 IU/mL 12/10/2021 1:06 AM CDT [facility] ([facility]) Comment:Thyroglobulin Antibo dy measured by [facility] [place] Methodology Blood BLOOD SPECIMEN / Unknown Lab Venipuncture / Unknown 12/08/2021 9:12 AM CDT 12/08/2021 9:51 AM CDT Narrative [facility] ([facility]) - 12/10/2021 1:06 AM CDT Performed at: ??01 - [facility] [address] [place], [place] ??[id number] Enforcement Manager: Oral Melendez PhD, Phone: ??[phone] Yosi Bustamante MD LAB - CHEMISTRY ORD ERABLES [facility] ([facility]) [address] [place] [address] documented in this encounter Visit Diagnoses Diagnosis Postoperative hypothyroidism- Primary Postsurgical hypothyroidism Thyroid cancer (HCC) Malignant neoplasm of thyroid gland Hypocalcemia Other hypoparathyroidism (HCC) documented in this encounter Care Teams Engineer Geophysical Laboratory Relationship Specialty Start Date End Date Taniya Grimes MD [address] 2[address] DIV OF [facility] [place] [address] PCP - General 07/01/20 05/10/22 Marylu Marie DO [address] 2[address] DIV OF [facility] [address] Resident - PCP Student Resident 06/26/20 01/11/22 documented as of this encounter
--- OUTSIDE RECORDS SUMMARY | 2024-07-26 08:37 | XMS_ITS | Encounter Summary ---
Author Organization [facility] Address [address] [facility] [place] [address] Care Team Providers Care Volumetric Weigher Name Role Phone Marylu Marie DO Unavailable [phone] Taniya Grimes MD Primary Care Provider Encounter Details Date Type Department Care Team (Latest Contact Info) Description 12/08/2021 8:53 AM CDT - 12/08/2021 11:59 PM CDT Hospital Encounter [facility] [address] [place] [phone] Discharge Disposition: Home or Self Care Social [...] fluticasone propionate (FLONASE) 50 MCG/ACT nasal spray [place] 2 (two) sprays into each nostril once daily 48 g 10/20/2021 11/25/2022 gabapentin (NEURONTIN) 300 MG capsuleIndications:Prima ry osteoarthritis of left hip TAKE 1 CAPSULE BY MOUTH THREE TIMES A DAY 90 capsule 5 10/08/2021 04/06/2022 XMXAMH-CNLYVBWPC-YCP-C-H YAL PO Take 1 tablet by mouth [...] st Contact Info) Description 08/02/2024 2:20 PM COMB WINDER Appointment [facility] [address] [place] [address] 08/02/2024 3:00 PM COMB WINDER Office Visit [facility] - Hematology/Oncology [address] [place] [phone] Remi Beckett MD [address] [place] [phone] 08/18/2024 1:45 PM COMB WINDER Office Visit [facility] - ENT [address] [place] [phone] Neri Delgado MD [address] [place] [address] 08/30/2024 2:20 PM COMB WINDER Appointment [facility] [address] [place] [address] documented as of this encounter Procedures Procedure [...] 38.5 ng/mL 12/10/2021 1:06 AM CDT [facility] ([facility]) Comment: According to the National Academy [...] CDT 12/08/2021 9:51 AM CDT Narrative [facility] ([facility]) - 12/10/2021 1:06 AM CDT Performed at: ??01 - [facility] [address] [place], [place] ??[id number] Member Certification Manager: Oral Melendez PhD, Phone: ??[phone] Yosi Bustamante MD LAB - CHEMISTRY ORD ERABLES [facility] ([facility]) [address] [place] [address], [facility] * T4 FREE (12/08/2021 9:12 AM CDT) T4 Free 1.2 0.7 - 1.5 ng/dL 12/08/2021 10:50 AM CDT [facility] Blood BLOOD SPECIMEN / Unknown Lab Venipuncture / Unknown 12/08/2021 9:12 AM CDT 12/08/2021 9:25 AM T Yosi Bustamante MD LAB - CHEMISTRY ORD ERABLES [facility] [address] [place] [address], [facility] [phone] * (ABNORMAL) RENAL FUNCTION PANEL (12/08/2021 9:12 AM CDT) BUN 16 7 - 26 mg/dL 12/08/2021 10:17 AM [facility] Creatinine 0.82 0.56 - 0.96 mg/dL 12/08/2021 10:17 AM [facility] Sodium 140 136 - 145 mmol/L 12/08/2021 10:17 AM [facility] Potassium 4.6(H) 3.5 - 4.5 mmol/L 12/08/2021 10:17 AM [facility] Chloride 106 98 - 107 mmol/L 12/08/2021 10:17 AM [facility] CO2 22 22 - 29 mmol/L 12/08/2021 10:17 AM [facility] Glucose 95 70 - 115 mg/dL 12/08/2021 10:17 AM [facility] Albumin 4.0 3.4 - 5.0 g/dL 12/08/2021 10:17 AM [facility] Calcium 8.0(L) 8.4 - 10.2 mg/dL 12/08/2021 10:17 AM [facility] Phosphorus 4.9 2.9 - 5.1 mg/dL 12/08/2021 10:17 AM [facility] Anion Gap 17 8 - 18 12/08/2021 10:17 AM [facility] BUN/Creatinine Ratio 20 7 - 23 12/08/2021 10:17 AM [facility] Osmolality Calculated 291 270 - 300 mOsm/kg 12/08/2021 10:17 AM [facility] eGFR by CKD-EPI 80(L) >=90 mL/min/1.7 3 m2 12/08/2021 10:17 AM CDT [facility] Blood BLOOD SPECIMEN / Unknown Lab Venipuncture / Unknown 12/08/2021 9:12 AM CDT 12/08/2021 9:25 AM CDT Yosi Bustamante MD LAB - CHEMISTRY ORD ERABLES Performing Organization Address City/[facility]/ZIP Co de Phone Number [facility] [address] [place] [phone], [facility] [phone] * THYROGLOBULIN REFLEX PROFILE (12/08/2021 9:12 AM CDT) Thyroglobulin Antibody <1.0 0.0 - 0.9 IU/mL 12/10/2021 1:06 AM CDT [facility] ([facility]) Comment:Thyroglobulin Antibo dy measured by Lisbet [facility] Methodology Blood BLOOD SPECIMEN / Unknown Lab Venipuncture / Unknown 12/08/2021 9:12 AM CDT 12/08/2021 9:51 AM CDT Narrative [facility] ([facility]) - 12/10/2021 1:06 AM CDT Performed at: ??01 - [facility] [address] [place], [place] ??[id number] Member Certification Manager: Oral Melendez PhD, Phone: ??[phone] Yosi Bustamante MD LAB - CHEMISTRY ORD ERABLES Performing Organization Address City/[facility]/ZIP Co de Phone Number [facility] ([facility]) [address] [place] [address] * (ABNORMAL) TSH REFLEX FREE T4 (12/08/2021 9:12 AM CDT) TSH <0.010(L) 0.350 - 4.940 uIU/mL 12/08/2021 10:17 AM CDT [facility] Blood BLOOD SPECIMEN / Unknown Lab Venipuncture / Unknown 12/08/2021 9:12 AM CDT 12/08/2021 9:25 AM CDT Yosi Bustamante MD LAB - CHEMISTRY ORD JENISE [facility] [address] [place] [address], [facility] [phone] documented in this encounter Visit Diagnoses Diagnosis Postoperative hypothyroidism- Primary Postsurgical hypothyroidism Thyroid cancer (HCC) Malignant neoplasm of thyroid gland Hypocalcemia Other hypoparathyroidism (HCC) documented in this encounter Care Teams Volumetric Weigher Relationship Specialty Start Date End Date Taniya Grimes MD [address] [facility] 2L DIV OF [facility] [place] [phone] PCP - General 07/01/20 05/10/22 Marylu Marie DO [address] [facility] 2L DIV [facility] [place] [address] Resident - PCP Student Resident 06/26/20 01/11/22 documented as of this encounter
--- OUTSIDE RECORDS SUMMARY | 2024-07-26 08:37 | XMS_ITS | Encounter Summary ---
Author Organization [facility] Health Address [address] [place] [address] Care Team Providers Care Construction Producer Name Role Phone Marylu Marie DO Unavailable Taniya Grimes MD Primary Care Provider Reason for Visit * Reason Onset Date Comments Medication Prior Auth Request 11/19/2021 Encounter Details Date Type Department Care Team (Late st Contact Info) Description 11/19/2021 Telephone [facility] General Internal Medicine [address] [place] [address], [place] [phone] Marylu Marie DO [address] [place] [address] OF [facility] [place] [address] Medication Prior Auth Request Social History Tobacco [...] Prior auth request submitted on line at [employer]. Office notes submitted with request Yes. Waiting for insurance response. Cover My Meds perez:[email or web address] documented in this encounter Plan of Treatment Upcoming Encounters Date Type Department Care Team (Late st Contact Info) Description 08/02/2024 2:20 PM RAIL SPECIALIST Appointment [facility] [address] [place] [address] 08/02/2024 3:00 PM RAIL SPECIALIST Office Visit [facility] Physician Group - Hematology/Oncology [address] [place] [phone] Remi Beckett MD [address] [place] [phone] 08/18/2024 1:45 PM RAIL SPECIALIST Office Visit [facility] - ENT [address] [place] [phone] Neri Delgado MD [address] [place] [address] 08/30/2024 2:20 PM RAIL SPECIALIST Appointment [facility] [address] [place] [address] documented as of this encounter Visit Diagnoses Not on filedocumented in this encounter Care Teams Construction Producer Relationship Specialty Start Date End Date Taniya Grimes MD [address] DIV OF [facility] [place] [address] PCP - General 07/01/20 05/10/22 Marylu aMrie DO [address] DIV OF [facility] [place] [address] Resident - PCP Student Resident 06/26/20 01/11/22 documented as of this encounter
--- OUTSIDE RECORDS SUMMARY | 2024-07-26 08:38 | XMS_ITS | Encounter Summary ---
Author Organization [facility] Health Address [address] [place] [address] Care Team Providers Care Change Attendant Name Role Phone Marylu Marie DO Unavailable [phone] Taniya Grimes MD Primary Care Provider Reason for Visit * Reason Comments Refill Request Encounter Details Date Type Department Care Team (Late st Contact Info) Description 10/04/2021 Refill [facility] General Internal Medicine [address] [facility], [place] [address] Alex Smith MD [address] [place] [address] Refill Request Social History Tobacco [...] st Contact Info) Description 08/02/2024 2:20 PM RELISH BLENDER Appointment [facility] [address] [place] [address] 08/02/2024 3:00 PM RELISH BLENDER Office Visit [facility] Physician Group - Hematology/Oncology [address] [place] [phone] Remi Beckett MD [address] [place] [phone] 08/18/2024 1:45 PM RELISH BLENDER Office Visit [facility] [address] [place] [phone] Neri Delgado MD [address] [place] [address] 08/30/2024 2:20 PM RELISH BLENDER Appointment [facility] [place] [address] documented as of this encounter Visit Diagnoses Diagnosis Primary osteoarthritis of left hip Primary localized osteoarthrosis, pelvic region and thigh documented in this encounter Care Teams Change Attendant Relationship Specialty Start Date End Date Taniya Grimes MD [address] DIV OF [facility] [place] [address] PCP - General 07/01/20 05/10/22 Marylu Marie DO [address] DIV OF [facility] [place] [address] Resident - PCP Student Resident 06/26/20 01/11/22 documented as of this encounter
--- OUTSIDE RECORDS SUMMARY | 2024-07-26 08:38 | XMS_ITS | Encounter Summary ---
Author Organization [facility] Health Address [address] [facility] [place] [address] Care Team Providers Care Organizational Development Director Name Role Phone Marylu Marie DO Unavailable [phone] Taniya Grimes MD Primary Care Provider Encounter Details Date Type Department Care Team (Latest Contact Info) Description 10/24/2021 2:35 PM CDT - 10/24/2021 11:59 PM CDT Hospital Encounter [facility] LAB OP DRAW [place] [address] [place] [address] [phone] Discharge Disposition: Home or Self Care Social [...] propionate (FLONASE) 50 MCG/ACT nasal spray [place] 2 (two) sprays into each nostril once daily 48 g 10/20/2021 11/25/2022 gabapentin (NEURONTIN) 300 MG capsuleIndications:Prima ry osteoarthritis of left hip TAKE 1 CAPSULE BY MOUTH THREE TIMES A DAY 90 capsule 5 10/08/2021 04/06/2022 [id number] YAL PO Take 1 tablet by mouth [...] st Contact Info) Description 08/02/2024 2:20 PM AUTO RENTAL CLERK Appointment [facility] INF[facility]ION CENTER [address] [place] [address] 08/02/2024 3:00 PM AUTO RENTAL CLERK Office Visit [facility] Physician Group - Hematology/Oncology [address] [place] [address] [phone] Remi Beckett MD [address] [place] [phone] 08/18/2024 1:45 PM AUTO RENTAL CLERK Office Visit [facility] Physician Group - ENT [address] [place] [phone] Neri Delgado MD [address] [place] [address] 08/30/2024 2:20 PM AUTO RENTAL CLERK Appointment [facility] IN[facility]ION CENTER [address] [place] [address] documented as of this encounter Procedures Procedure [...] 38.5 ng/mL 10/28/2021 1:06 AM CDT [facility] ([facility]) Comment: According to the National [...] CDT 10/24/2021 3:31 PM CDT Narrative [facility] ([facility]) - 10/28/2021 1:06 AM CDT Performed at: ??01 - [facility] [address] [place], [place] ??[id number] Resident Inspector: Oral Melendez PhD, Phone: ??[phone] Yosi Bustamante MD LAB - CHEMISTRY ORD ERABLES [facility] ([facility]) [address] [place] [address] * T4 FREE (10/24/2021 3:04 PM CDT) T4 Free 1.4 0.7 - 1.5 ng/dL 10/24/2021 6:02 PM CDT [facility] Blood BLOOD SPECIMEN / Unknown Lab Venipuncture / Unknown 10/24/2021 3:04 PM CDT 10/24/2021 4:55 PM CDT Yosi Bustamante MD LAB - CHEMISTRY ORD ERABLES Performing Organization Address City/[facility]/ZIP Co de Phone Number [facility] [address] [place] [address], [facility] [phone] * VITAMIN D 25-HYDROXY (10/24/2021 3:04 PM CDT) [facility] Vitamin D, 25 Hydroxy 36.0 30.0 - [...] City/[facility]/ZIP Co de Phone Number [facility] [address] [place] [address] [phone] * (ABNORMAL) RENAL FUNCTION PANEL (10/24/2021 3:04 PM CDT) BUN 10 7 - 26 mg/dL 10/24/2021 5:29 PM [facility] Creatinine 0.69 0.56 - 0.96 mg/dL 10/24/2021 5:29 PM [facility] Sodium 141 136 - 145 mmol/L 10/24/2021 5:29 PM [facility] Potassium 4.1 3.5 - 4.5 mmol/L 10/24/2021 5:29 PM [facility] Chloride 105 98 - 107 mmol/L 10/24/2021 5:29 PM [facility] CO2 24 22 - 29 mmol/L 10/24/2021 5:29 PM [facility] Glucose 97 70 - 115 mg/dL 10/24/2021 5:29 PM [facility] Albumin 4.0 3.4 - 5.0 g/dL 10/24/2021 5:29 PM [facility] Calcium 8.3(L) 8.4 - 10.2 mg/dL 10/24/2021 5:29 PM [facility] Phosphorus 3.8 2.9 - 5.1 mg/dL 10/24/2021 5:29 PM [facility] Anion Gap 16 8 - 18 10/24/2021 5:29 PM [facility] BUN/Creatinine Ratio 14 7 - 23 10/24/2021 5:29 PM [facility] Osmolality Calculated 291 270 - 300 mOsm/kg 10/24/2021 5:29 PM [facility] eGFR by CKD-EPI >90 >=90 mL/min/1.7 3 m2 10/24/2021 5:29 PM [facility] Blood BLOOD SPECIMEN / Unknown Lab Venipuncture / Unknown 10/24/2021 3:04 PM CDT 10/24/2021 4:55 PM T Yosi Bustamante MD LAB - CHEMISTRY ORD ERABLES [facility] LABORATORY [facility] [address] [place] [address], [place] [phone] * THYROGLOBULIN REFLEX PROFILE (10/24/2021 3:04 PM CDT) Thyroglobulin Antibody <1.0 0.0 - 0.9 IU/mL 10/28/2021 1:06 AM CDT [facility] ([facility]) Comment:Thyroglobulin Antibo dy measured by Lis[facility] Blood BLOOD SPECIMEN / Unknown Lab Venipuncture / Unknown 10/24/2021 3:04 PM CDT 10/24/2021 3:31 PM CDT Narrative [facility] ([facility]) - 10/28/2021 1:06 AM CDT Performed at: ??01 - [facility] [address] [place] [address], [place], [place] ??[id number] Resident Inspector: Oral Melendez PhD, Phone: ??[phone] Yosi Bustamante MD LAB - CHEMISTRY ORD ERABLES Performing Organization Address [facility]/ZIP Co de Phone Number [facility] ([facility]) [address] [place] [address] * (ABNORMAL) TSH REFLEX FREE T4 (10/24/2021 3:04 PM CDT) Pathologist [facility] TSH <0.010(L) 0.350 - 4.940 uIU/mL 10/24/2021 5:29 PM CDT [facility] LABORATORY [facility] Blood BLOOD SPECIMEN / Unknown Lab Venipuncture / Unknown 10/24/2021 3:04 PM CDT 10/24/2021 4:55 PM CDT Yosi Bustamante MD LAB - CHEMISTRY ORD ERABLES Performing Organization Address City/[facility]/ZIP Co de Phone Number [facility] [address] [place] [address], [place] [phone] documented in this encounter Visit Diagnoses Diagnosis Postoperative hypothyroidism- Primary Postsurgical hypothyroidism Thyroid cancer (HCC) Malignant neoplasm of thyroid gland Hypocalcemia Other hypoparathyroidism (HCC) documented in this encounter Care Teams Organizational Development Director Relationship Specialty Start Date End Date Taniya Grimes MD [address] DIV OF [facility] [place] [address] PCP - General 07/01/20 05/10/22 Marylu Marie DO [address] DIV OF [facility] [place] [address] Resident - PCP Student Resident 06/26/20 01/11/22 documented as of this encounter
--- OUTSIDE RECORDS SUMMARY | 2024-07-26 08:38 | XMS_ITS | Encounter Summary ---
Author Organization [facility] Health Address [address] [facility] [place] [address] Care Team Providers Care Foreman Or Supervisor And Operator Name Role Phone Marylu Marie DO Unavailable [phone] Taniya Grimes MD Primary Care Provider Encounter Details Date Type Department Care Team (Latest Contact Info) Description 10/17/2021 Orders Only [facility] Endocrinology, Diabetes and Metabolism [address] [place] [address], [place] [phone] Yosi Bustamante MD [address] [place] [address] of Endocrinology [place], [place] [phone] Postoperative hypothyroidism; Thyroid cancer (HCC); Hypocalcemia; Other [...] st Contact Info) Description 08/02/2024 2:20 PM HAT AND CAP SEWER Appointment [facility] [address] [place] [address] 08/02/2024 3:00 PM HAT AND CAP SEWER Office Visit [facility] - Hematology/Oncology [address] [place] [phone] Remi Beckett MD [address] [place] [phone] 08/18/2024 1:45 PM HAT AND CAP SEWER Office Visit [facility] - ENT [address] [place] [phone] Neri Delgado MD [address] [place] [address] 08/30/2024 2:20 PM HAT AND CAP SEWER Appointment [facility] [address] [place] [address] documented as of this encounter Visit Diagnoses Diagnosis Postoperative hypothyroidism Postsurgical hypothyroidism Thyroid cancer (HCC) Malignant neoplasm of thyroid gland Hypocalcemia Other hypoparathyroidism (HCC) documented in this encounter Care Teams Foreman Or Supervisor And Operator Relationship Specialty Start Date End Date Taniya Grimes MD [address] [place] [address] OF [facility] [place] [phone] PCP - General 07/01/20 05/10/22 Marylu Marie DO [facility] [address] OF [facility] [place] [address] Resident - PCP Student Resident 06/26/20 01/11/22 documented as of this encounter
--- OUTSIDE RECORDS SUMMARY | 2024-07-26 08:38 | XMS_ITS | Encounter Summary ---
Author Organization [facility] [place] Health Address [address] [place] [address] Care Team Providers Care Grinding Machine Operator Portable Name Role Phone Marylu Marie DO Unavailable [phone] Taniya Grimes MD Primary Care Provider Reason for Visit * Reason Onset Date Comments MEDICATION REFILL 07/22/2021 Encounter Details Date Type Department Care Team (Late st Contact Info) Description 07/22/2021 Refill [facility] General Internal Medicine [address] [place] [address], [place] [address] Marylu Marie DO [address] [place] [address] [place] [address] MEDICATION REFILL Social History Tobacco Use Types [...] Mellisa Vargas LPN - 07/22/2021 2:19 PM ADVERTISING OPERATIONS MANAGER Refill Request Brisa Hogan ELE: 05.22.21 NOV scheduled: 10/29/2021 LRF: 09.13.20 Qty Disp: 30 # of refills: 11 Allergies: Allergies Allergen Reactions ??? Kiwi Extract Anaphylaxis Pended Medication Order: Requested Prescriptions Pending Prescriptions Disp Refills ??? atorvastatin (LIPITOR) 40 MG tablet 30 tablet 3 Sig: TAKE 1 TABLET BY MOUTH EVERYDAY AT BEDTIME RTISING OPERATIONS MANAGER documented in this encounter Plan of Treatment Upcoming Encounters Date Type Department Care Team (Late st Contact Info) Description 08/02/2024 2:20 PM ADVERTISING OPERATIONS MANAGER Appointment [facility] [address] [place] [address] 08/02/2024 3:00 PM ADVERTISING OPERATIONS MANAGER Office Visit [facility] - Hematology/Oncology [address] [place] [phone] Remi Beckett MD [address] [place] [phone] 08/18/2024 1:45 PM ADVERTISING OPERATIONS MANAGER Office Visit [facility] - ENT [address] [place] [phone] Neri Delgado MD [address] [place] [address] 08/30/2024 2:20 PM ADVERTISING OPERATIONS MANAGER Appointment [facility] [address] [place] [address] documented as of this encounter Visit Diagnoses Diagnosis Hyperlipidemia, unspecified hyperlipidemia type documented in this encounter Care Teams Grinding Machine Operator Portable Relationship Specialty Start Date End Date Taniya Grimes MD [address] DIV OF [facility] [place] [address] PCP - General 07/01/20 05/10/22 Marylu Marie DO [address] [place] [address] Resident - PCP Student Resident 06/26/20 01/11/22 documented as of this encounter
--- OUTSIDE RECORDS SUMMARY | 2024-07-26 08:38 | XMS_ITS | Encounter Summary ---
Author Organization [facility] Health Address [address] [place] [address] Care Team Providers Care Field Rep Name Role Phone Marylu Marie DO Unavailable Taniya Grimes MD Primary Care Provider Reason for Visit * Reason Comments Physical Encounter Details Date Type Department Care Team (Late st Contact Info) Description 05/22/2021 2:30 PM DEAF TEACHER Office Visit [facility] General Internal Medicine [address] [place] [address], [place] [address] Marylu Marie DO [address] [place] [address] 2[address] [facility] [place] [address] Primary osteoarthritis of left hip (Primary Dx); [...] Comments Blood Pressure 138/82 05/22/2021 2:42 PM DEAF TEACHER Pulse 76 05/22/2021 2:42 PM DEAF TEACHER Temperature 36.2 ??C (97.1 ??F) 05/22/2021 2:42 PM CS T Respiratory Rate - - Oxygen Saturation 94% 05/22/2021 2:42 PM DEAF TEACHER Inhaled Oxygen Concentration - - Weight 65.8 kg (145 lb) 05/22/2021 2:42 PM DEAF TEACHER Height 157.5 cm (5' 2) 05/22/2021 2:42 PM DEAF TEACHER Body Mass Index 26.52 05/22/2021 2:42 PM DEAF TEACHER documented in this encounter Functional Status Functional [...] Instructions* Charly Desai - 05/22/2021 2:50 PM DEAF TEACHER [facility] General Internal Medicine is committed to [...] for your doctor, the office phone is [phone]. You will be given options to get [...] primary care provider. Please call us at [phone], option 1, then option 1 in the morning you would like to be seen. Our fax number is [phone]. Instructions for reaching the practice after office hours For urgent concerns that cannot wait until phone lines are open on the next business day, please call [phone] to speak to the covering General Internal Medicine provider. Identify yourself as a patient in our practice and give the block breaker operator your doctor's name. The block breaker operator will contact the physician educational technology specialist. You can generally expect a return call within 30 minutes. Prescription Refills Contact your pharmacy to request all refills. You may also send a [facility] [facility] message for refills. Please allow a minimum of 48-72 hours for your prescription to be completed. Your pharmacy will notify you when your prescription is ready to be picked up. SCHEDULE YOUR OWN APPOINTMENT AT [facility] We are excited to announce that some [facility] appointments can now be scheduled online. If you are not able to access the type of appointment that you need using this service, our [facility] Scheduling department will be happy to continue to serve you. Use one of these options to schedule your next appointment today: ??? Access self-scheduling options by visiting the [facility] Online Scheduling Webpage. ??? Make an appointment by calling [facility] Central [phone] Visit our website at [email or web address] for information about our practice and an interactive health encyclopedia. TEACHER documented in this encounter Progress Notes * Marylu Marie DO - 05/22/2021 2:44 PM CST [facility] General Internal Medicine Established Patient Note CC: [...] with UTI in 02/2021 and admitted to [facility] for 5 days. Presented with AMS. Calcium [...] Past Medical/Surgical/Family/Social History: Reviewed and updated in Epic History [...] propionate (FLONASE) 50 MCG/ACT nasal spray [place] 2 (two) sprays into each nostril once daily 16 g 0 ??? gabapentin (NEURONTIN) 300 MG capsule TAKE 1 CAPSULE BY MOUTH THREE TIMES A DAY 90 capsule 5 ??? [id number] PO Take 1 tablet by mouth 3 [...] Imaging/Other diagnostic testing: Personally reviewed. Lab Preference: [address] [phone] Marylu Frank, DO 05/22/2021 Coding Rationale New or est? Established Patient Highest problem complexity: 1 stable chronic illness Data review: Review of prior external note(s): 2 unique source(s) Review of result(s): 2 unique source(s) Highest level of risk: Moderate Suggested code: 41086 TEACHER Associated attestation - Taniya Grimes MD - 05/22/2021 5:13 PM DEAF TEACHER Attending Physician Attestation I saw and examined the patient with the resident, and I agree with the resident's history, physicalexam, and assessment and plan. Date of Service: 05/22/2021 Taniya Grimes MD documented in this encounter Plan of Treatment Upcoming Encounters Date Type Department Care Team (Late st Contact Info) Description 08/02/2024 2:20 PM DEAF TEACHER Appointment [facility] [address] [place] [address] 08/02/2024 3:00 PM DEAF TEACHER Office Visit [facility] Group - Hematology/Oncology [facility] [place] [phone] [place] [address] [place] [phone] 08/18/2024 1:45 PM DEAF TEACHER Office Visit [facility] [address] [place] [address] Neri Delgado MD [address] [place] [address] 08/30/2024 2:20 PM DEAF TEACHER Appointment [facility] [address] [place] [address] documented as of this encounter Visit Diagnoses Diagnosis Primary osteoarthritis of left hip- Primary Primary localized osteoarthrosis, pelvic region and thigh Screening for colon cancer Special screening for malignant neoplasms, colon Cigarette nicotine dependence without complication Tobacco use disorder Vaccine counseling documented in this encounter Care Teams Field Rep Relationship Specialty Start Date End Date Taniya Grimes MD [address] [place] [address] 2L DIV OF [facility] [place] [address] PCP - General 07/01/20 05/10/22 Marylu Marie DO [address] [place] [address] 2L DIV OF [facility] [place] [address] Resident - PCP Student Resident 06/26/20 01/11/22 documented as of this encounter
--- OUTSIDE RECORDS SUMMARY | 2024-07-26 08:38 | XMS_ITS | Encounter Summary ---
Author Organization [facility] Health Address [address] [facility] [place] [address] Care Team Providers Care Can Filling Room Sweeper Name Role Phone Marylu Marie DO Unavailable Taniya Grimes MD Primary Care Provider [phone] Reason for Visit * Reason Onset Date Comments LABS ONLY 10/15/2021 Encounter Details Date Type Department Care Team (Late st Contact Info) Description 10/15/2021 Telephone [facility] Endocrinology, Diabetes and Metabolism [address] [place] [address], [facility] [place] [phone] Yosi Bustamante MD [address] [place] [address] [place] [address] LABS ONLY Social History Tobacco Use Types [...] Yaima Morales - 10/15/2021 10:28 AM CDT [facility] Lab called to inform Dr Bustamante about the labwork Thyroglobulin Reflex Profile & TSH from 10/08/21 they both were canceled documented in this encounter Plan of Treatment Upcoming Encounters Date Type Department Care Team (Late st Contact Info) Description 08/02/2024 2:20 PM PUBLIC AFFAIRS DIRECTOR Appointment [facility] [address] [place] [address] 08/02/2024 3:00 PM PUBLIC AFFAIRS DIRECTOR Office Visit [facility] - Hematology/Oncology [address] [place] [phone] [place] [address] [place] [phone] 08/18/2024 1:45 PM PUBLIC AFFAIRS DIRECTOR Office Visit [facility] - ENT [address] [place] [phone] Neri Delgado MD [address] [place] [address] 08/30/2024 2:20 PM PUBLIC AFFAIRS DIRECTOR Appointment [facility] [address] [place] [address] documented as of this encounter Visit Diagnoses Not on filedocumented in this encounter Care Teams Can Filling Room Sweeper Relationship Specialty Start Date End Date Taniya Grimes MD [address] [facility] 2L DIV OF [facility] [place] [address] PCP - General 07/01/20 05/10/22 Marylu Marie DO [address] [facility] 2L DIV OF [facility] [place] [place] [address] Resident - PCP Student Resident 06/26/20 01/11/22 documented as of this encounter
--- OUTSIDE RECORDS SUMMARY | 2024-07-26 08:38 | XMS_ITS | Encounter Summary ---
Author Organization [facility] Health Address [address] [facility] [place] [address] Care Team Providers Care Rotor Pilot Name Role Phone Marylu Marie DO Unavailable Taniya Grimes MD Primary Care Provider [phone] Encounter Details Date Type Department Care Team (Latest Contact Info) Description 10/08/2021 4:20 PM CDT - 10/08/2021 11:59 PM CDT Hospital Encounter [facility] OP DRAW STATION [address] [place] [address] Yosi Bustamante MD [address] [facility] 2L [facility] [place] [address] Discharge Disposition: Home or Self Care Social [...] fluticasone propionate (FLONASE) 50 MCG/ACT nasal spray [place] 2 (two) sprays into each nostril once daily 48 g 06/10/2021 10/20/2021 gabapentin (NEURONTIN) 300 MG capsuleIndications:Prima ry osteoarthritis of left hip TAKE 1 CAPSULE BY MOUTH THREE TIMES A DAY 90 capsule 5 10/08/2021 04/06/2022 [id number]-C-H YAL PO Take 1 tablet by mouth [...] st Contact Info) Description 08/02/2024 2:20 PM POWER MACHINE OPERATOR Appointment [facility] [address] [place] [address] 08/02/2024 3:00 PM POWER MACHINE OPERATOR Office Visit [facility] - Hematology/Oncology [address] [place] [phone] Remi Beckett MD [address] [place] [phone] 08/18/2024 1:45 PM POWER MACHINE OPERATOR Office Visit [facility] - ENT [address] [place] [phone] Neri Delgado MD [address] [place] [address] 08/30/2024 2:20 PM POWER MACHINE OPERATOR Appointment [facility] [address] [place] [address] documented as of this encounter Procedures Procedure [...] - 1.5 ng/dL 10/08/2021 6:22 PM CDT [facility] Blood BLOOD SPECIMEN / Unknown Lab Venipuncture / Unknown 10/08/2021 4:37 PM CDT 10/08/2021 5:00 PM CDT Yosi Bustamante MD LAB - CHEMISTRY ORD ERABLES Performing Organization Address City/State/[facility] Co de Phone Number [facility] [address] [place] [phone], [facility] [phone] * VITAMIN D 25-HYDROXY (10/08/2021 4:37 PM CDT) Vitamin D, 25 Hydroxy 35.0 30.0 - 80.0 ng/mL 10/08/2021 5:48 PM CDT [facility] Comment: The recommendations for 25-Hydroxy Vitamin [...] - CHEMISTRY ORD ERABLES Performing Organization Address [facility]/ZIP Co de Phone Number [facility] [address] [place] [address], [facility] [phone] * (ABNORMAL) RENAL FUNCTION PANEL (10/08/2021 4:37 PM CDT) BUN 13 7 - 26 mg/dL 10/08/2021 5:32 PM [facility] Creatinine 0.68 0.56 - 0.96 mg/dL 10/08/2021 5:32 PM [facility] Sodium 141 136 - 145 mmol/L 10/08/2021 5:32 PM [facility] Potassium 4.0 3.5 - 4.5 mmol/L 10/08/2021 5:32 PM [facility] Chloride 104 98 - 107 mmol/L 10/08/2021 5:32 PM [facility] CO2 23 22 - 29 mmol/L 10/08/2021 5:32 PM [facility] Glucose 127(H) 70 - 115 mg/dL 10/08/2021 5:32 PM [facility] Albumin 3.8 3.4 - 5.0 g/dL 10/08/2021 5:32 PM [facility] Calcium 8.5 8.4 - 10.2 mg/dL 10/08/2021 5:32 PM [facility] Phosphorus 4.8 2.9 - 5.1 mg/dL 10/08/2021 5:32 PM [facility] Anion Gap 18 8 - 18 10/08/2021 5:32 PM [facility] BUN/Creatinine Ratio 19 7 - 23 10/08/2021 5:32 PM [facility] Osmolality Calculated 294 270 - 300 mOsm/kg 10/08/2021 5:32 PM CDT [facility] eGFR by CKD-EPI >90 >=90 mL/min/1.7 3 m2 10/08/2021 5:32 PM CDT [facility] Blood BLOOD SPECIMEN / Unknown Lab Venipuncture / Unknown 10/08/2021 4:37 PM CDT 10/08/2021 5:00 PM CDT Yosi Bustamante MD LAB - CHEMISTRY ORD ERABLES [facility] [address] [place] [address], [facility] [phone] * (ABNORMAL) TSH REFLEX FREE T4 (10/08/2021 4:37 PM CDT) TSH <0.010(L) 0.350 - 4.940 uIU/mL 10/08/2021 5:48 PM CDT [facility] Blood BLOOD SPECIMEN / Unknown Lab Venipuncture / Unknown 10/08/2021 4:37 PM CDT 10/08/2021 5:00 PM CDT Yosi Bustamante MD LAB - CHEMISTRY ORD ERABLES Performing Organization Address City/[facility]/ZIP Co de Phone Number [facility] [address] [place] [address], [place] [phone] documented in this encounter Visit Diagnoses Diagnosis Thyroid cancer (HCC)- Primary Malignant neoplasm of thyroid gland Hypocalcemia Other hypoparathyroidism (HCC) Postoperative hypothyroidism Postsurgical hypothyroidism documented in this encounter Care Teams Rotor Pilot Relationship Specialty Start Date End Date Taniya Grimes MD [address] [place] [address] 2L DIV OF [facility] [place] [phone] PCP - General 07/01/20 05/10/22 [place] [address] [place] [address] 2L DIV OF [facility] [place] [address] Resident - PCP Student Resident 06/26/20 01/11/22 documented as of this encounter
--- OUTSIDE RECORDS SUMMARY | 2024-07-26 08:38 | XMS_ITS | Encounter Summary ---
Author Organization [facility] Health Address [address] [facility] [place] [address] Care Team Providers Care Cabinet And Trim Installer Name Role Phone Marylu Marie DO Unavailable [phone] Taniya Grimes MD Primary Care Provider Encounter [...] st Contact Info) Description 08/02/2024 2:20 PM GRAPHICS COORDINATOR Appointment [facility] [address] [place] [address] 08/02/2024 3:00 PM GRAPHICS COORDINATOR Office Visit [facility] Phys[facility] Group - Hematology/Oncology [address] [place] [phone] Remi Beckett MD [address] [place] [phone] 08/18/2024 1:45 PM GRAPHICS COORDINATOR Office Visit [facility] - ENT [address] [place] [phone] Neri Delgado MD [address] [place] [address] 08/30/2024 2:20 PM GRAPHICS COORDINATOR Appointment [facility] [address] [place] [address] documented as of this encounter Visit Diagnoses Not on filedocumented in this encounter Care Teams Cabinet And Trim Installer Relationship Specialty Start Date End Date Taniya Grimes MD [address] [place] [address] 2L DIV OF [facility] [place] [address] PCP - General 07/01/20 05/10/22 Marylu Marie DO [address] [place] [address] 2L DIV OF [facility] [place] [address] Resident - PCP Student Resident 06/26/20 01/11/22 documented as of this encounter
--- OUTSIDE RECORDS SUMMARY | 2024-07-26 08:38 | XMS_ITS | Encounter Summary ---
Author Organization [facility] Health Address [address] [facility] [place] [address] Care Team Providers Care Flue Lining Dipper Name Role Phone Marylu Marie DO Unavailable [phone] Taniya Grimes MD Primary Care Provider [phone] Reason for Visit * Reason Onset Date Comments Refill Request 04/22/2021 Encounter Details Date Type Department Care Team (Late st Contact Info) Description 04/22/2021 Telephone [facility] General Internal Medicine [address] [place] [address], [place] [address] Taniya Grimes MD [address] [place] [address] [place] [address] Refill Request Social History Tobacco [...] Hogan ELE: 07.11.20 NOV scheduled: 05.22.21 LRF: 10.07.20 Qty Disp: 30 # of refills: 5 [...] st Contact Info) Description 08/02/2024 2:20 PM STORY WRITER Appointment [facility] [address] [place] [address] 08/02/2024 3:00 PM STORY WRITER Office Visit [facility] Group - Hematology/Oncology [address] [place] [phone] Remi Beckett MD [address] [place] [phone] 08/18/2024 1:45 PM STORY WRITER Office Visit [facility] - ENT [address] [place] [phone] Neri Delgado MD [address] [place] [address] 08/30/2024 2:20 PM STORY WRITER Appointment [facility] [address] [place] [address] documented as of this encounter Visit Diagnoses Diagnosis Gastroesophageal reflux disease, unspecified whether esophagitis present documented in this encounter Care Teams Flue Lining Dipper Relationship Specialty Start Date End Date Taniya Grimes MD [address] 2L DIV OF [facility] [place] [address] PCP - General 07/01/20 05/10/22 Marylu Marie DO [address] 2L DIV OF [facility] [place] [address] Resident - PCP Student Resident 06/26/20 01/11/22 documented as of this encounter
--- OUTSIDE RECORDS SUMMARY | 2024-07-26 08:38 | XMS_ITS | Encounter Summary ---
Author Organization [facility] Health Address [address] [facility] [place] [address] Care Team Providers Care Motel Front Desk Attendant Name Role Phone Marylu Marie DO Unavailable Taniya Grimes MD Primary Care Provider Reason for Visit * Reason Onset Date Comments MEDICATION REFILL 05/08/2021 Encounter Details Date Type Department Care Team (Late st Contact Info) Description 05/08/2021 Refill [facility] General Internal Medicine [address] [place] [address], [place] [phone] Taniya Grimes MD [address] [place] [address] [place] [phone] MEDICATION REFILL Social History Tobacco Use Types [...] st Contact Info) Description 08/02/2024 2:20 PM FIRE EXTINGUISHER MECHANIC Appointment [facility] [address] [place] [address] 08/02/2024 3:00 PM FIRE EXTINGUISHER MECHANIC Office Visit [facility] Physician Group - Hematology/Oncology [address] [place] [phone] Remi Beckett MD [address] [place] [phone] 08/18/2024 1:45 PM FIRE EXTINGUISHER MECHANIC Office Visit [facility] - ENT [address] [place] [phone] Neri Delgado MD [address] [place] [address] 08/30/2024 2:20 PM FIRE EXTINGUISHER MECHANIC Appointment [facility] [address] [place] [address] documented as of this encounter Visit Diagnoses Not on filedocumented in this encounter Care Teams Motel Front Desk Attendant Relationship Specialty Start Date End Date Taniya Grimes MD [address] [place] [address] OF [facility] [place] [address] PCP - General 07/01/20 05/10/22 Marylu Marie DO [address] OF [facility] [place] [address] Resident - PCP Student Resident 06/26/20 01/11/22 documented as of this encounter
--- OUTSIDE RECORDS SUMMARY | 2024-07-26 08:38 | XMS_ITS | Encounter Summary ---
Author Organization [facility] Health Address [address] [place] [address] Care Team Providers Care Agents' Records Clerk Name Role Phone Marylu Marie DO Unavailable [phone] Taniya Grimes MD Primary Care Provider [phone] Encounter Details Date Type Department Care Team (Latest Contact Info) Description 08/22/2021 Orders Only [facility] Endocrinology, Diabetes and Metabolism [address] [place] [address], [place] [phone] Yosi Bustamante MD [address] [place] [address] of Endocrinology [place], [place] [phone] Postoperative hypothyroidism; Thyroid cancer (HCC); Hypocalcemia; Other [...] st Contact Info) Description 08/02/2024 2:20 PM GENETICS PHYSICIAN Appointment [facility] [address] [place] [address] 08/02/2024 3:00 PM GENETICS PHYSICIAN Office Visit [facility] - Hematology/Oncology [address] [place] [phone] Remi Beckett MD [address] [place] [phone] 08/18/2024 1:45 PM GENETICS PHYSICIAN Office Visit [facility] - ENT [address] [place] [phone] Neri Delgado MD [address] [place] [address] 08/30/2024 2:20 PM GENETICS PHYSICIAN Appointment [facility] [address] [place] [address] documented as of this encounter Visit Diagnoses Diagnosis Postoperative hypothyroidism Postsurgical hypothyroidism Thyroid cancer (HCC) Malignant neoplasm of thyroid gland Hypocalcemia Other hypoparathyroidism (HCC) documented in this encounter Care Teams Agents' Records Clerk Relationship Specialty Start Date End Date Taniya Grimes MD [address] [place] [address] 2L DIV OF [facility] [place] [address] PCP - General 07/01/20 05/10/22 Marylu Marie DO [address] [place] [address] 2L DIV OF [facility] [place] [address] Resident - PCP Student Resident 06/26/20 01/11/22 documented as of this encounter
--- OUTSIDE RECORDS SUMMARY | 2024-07-26 08:38 | XMS_ITS | Encounter Summary ---
Author Organization [facility] Health Address [address] [facility] [place] [address] Care Team Providers Care Sleep Technician Name Role Phone Marylu Marie DO Unavailable [phone] Taniya Grimes MD Primary Care Provider Reason for Visit * Reason Onset Date Comments MEDICATION REFILL 10/20/2021 Encounter Details Date Type Department Care Team (Late st Contact Info) Description 10/20/2021 Refill [facility] Internal Medicine [address] [place] [address], [place] [phone] Taniya Grimes MD [address] [place] [address] [place] [phone] MEDICATION REFILL Social History Tobacco Use Types [...] st Contact Info) Description 08/02/2024 2:20 PM ASBESTOS MICROSCOPIST Appointment [facility] [address] [place] [address] 08/02/2024 3:00 PM ASBESTOS MICROSCOPIST Office Visit [facility] - Hematology/Oncology [address] [place] [phone] Remi Beckett MD [address] [place] [phone] 08/18/2024 1:45 PM ASBESTOS MICROSCOPIST Office Visit [facility] - ENT [address] [place] [phone] Neri Delgado MD [address] [place] [address] 08/30/2024 2:20 PM ASBESTOS MICROSCOPIST Appointment [facility] [address] [place] [address] documented as of this encounter Visit Diagnoses Not on filedocumented in this encounter Care Teams Sleep Technician Relationship Specialty Start Date End Date Taniya Grimes MD [address] 2L DIV OF [facility] [place] [address] PCP - General 07/01/20 05/10/22 Marylu Marie DO [address] 2L DIV OF [facility] [place] [address] Resident - PCP Student Resident 06/26/20 01/11/22 documented as of this encounter
--- OUTSIDE RECORDS SUMMARY | 2024-07-26 08:38 | XMS_ITS | Encounter Summary ---
Author Organization [facility] Health Address [address] [facility] [place] [address] Care Team Providers Care Chiller Hand Name Role Phone Marylu Marie DO Unavailable Taniya Grimes MD Primary Care Provider Reason for Visit * Reason Onset Date Comments MEDICATION REFILL 04/11/2021 Encounter Details Date Type Department Care Team (Late st Contact Info) Description 04/11/2021 Refill [facility] Internal Medicine [address] [place] [address], [place] [phone] Taniya Grimes MD [address] [place] [address] [place] [phone] MEDICATION REFILL Social History Tobacco Use Types [...] MCG/ACT nasal spray 16 g 0 Sig: [place] 2 (two) sprays into each nostril once daily documented in this encounter Plan of Treatment Upcoming Encounters Date Type Department Care Team (Late st Contact Info) Description 08/02/2024 2:20 PM OVERLOCK COLLAR SETTER Appointment [facility] [address] [place] [address] 08/02/2024 3:00 PM OVERLOCK COLLAR SETTER Office Visit [facility] - Hematology/Oncology [address] [place] [phone] Remi Beckett MD [address] [place] [phone] 08/18/2024 1:45 PM OVERLOCK COLLAR SETTER Office Visit [facility] - ENT [address] [place] [phone] Neri Delgado MD [address] [place] [address] 08/30/2024 2:20 PM OVERLOCK COLLAR SETTER Appointment [facility] [address] [place] [address] documented as of this encounter Visit Diagnoses Not on filedocumented in this encounter Care Teams Chiller Hand Relationship Specialty Start Date End Date Taniya Grimes MD [address] [facility] 2L DIV OF [facility] [place] [address] PCP - General 07/01/20 05/10/22 Marylu Marie DO [address] [facility] 2L DIV OF [facility] [place] [address] Resident - PCP Student Resident 06/26/20 01/11/22 documented as of this encounter
--- OUTSIDE RECORDS SUMMARY | 2024-07-26 08:38 | XMS_ITS | Encounter Summary ---
Author Organization [facility] Health Address [address] [facility] [place] [address] Care Team Providers Care Filament Wound Parts Fabricator Name Role Phone Marylu Marie DO Unavailable Taniya Grimes MD Primary Care Provider Encounter Details Date Type Department Care Team (Latest Contact Info) Description 06/27/2021 Orders Only [facility] Endocrinology, Diabetes and Metabolism [address] [place] [address], [place] [phone] Yosi Bustamante MD [address] [place] [address] of Endocrinology [place], [place] [phone] Postoperative hypothyroidism; Thyroid cancer (HCC); Hypocalcemia; Other [...] st Contact Info) Description 08/02/2024 2:20 PM CAMPUS CHAPLAIN Appointment [facility] [address] [place] [address] 08/02/2024 3:00 PM CAMPUS CHAPLAIN Office Visit [facility] - Hematology/Oncology [address] [place] [phone] Remi Beckett MD [address] [place] [phone] 08/18/2024 1:45 PM CAMPUS CHAPLAIN Office Visit [facility] - ENT [address] [place] [phone] Neri Delgado MD [address] [place] [address] 08/30/2024 2:20 PM CAMPUS CHAPLAIN Appointment [facility] [address] [place] [address] documented as of this encounter Visit Diagnoses Diagnosis Postoperative hypothyroidism Postsurgical hypothyroidism Thyroid cancer (HCC) Malignant neoplasm of thyroid gland Hypocalcemia Other hypoparathyroidism (HCC) documented in this encounter Care Teams Filament Wound Parts Fabricator Relationship Specialty Start Date End Date Taniya Grimes MD [address] [place] [address] 2L DIV OF [facility] [place] [address] PCP - General 07/01/20 05/10/22 Marylu Marie DO [address] [place] [address] 2L DIV OF [facility] [place] [address] Resident - PCP Student Resident 06/26/20 01/11/22 documented as of this encounter
--- OUTSIDE RECORDS SUMMARY | 2024-07-26 08:38 | XMS_ITS | Encounter Summary ---
Author Organization [facility] Address [address] [facility] [place] [address] Care Team Providers Care Membership Director Name Role Phone Marylu Marie DO Unavailable [phone] Taniya Grimes MD Primary Care Provider [phone] Reason for Visit * Reason Onset Date Comments Pain Hip 09/29/2021 Encounter Details Date Type Department Care Team (Late st Contact Info) Description 09/29/2021 Telephone [facility] General Internal Medicine [address] [place] [address], [place] [address] Taniya Grimes MD [address] [place] [address] OF [facility] [place] [address] Pain Hip Social History Tobacco [...] can be called orthis concern. Please advise. [phone] documented in this encounter Plan of Treatment Upcoming Encounters Date Type Department Care Team (Late st Contact Info) Description 08/02/2024 2:20 PM KILNMAN Appointment [facility] [address] [place] [address] 08/02/2024 3:00 PM KILNMAN Office Visit [facility] - Hematology/Oncology [address] [place] [phone] Remi Beckett MD [address] [place] [phone] 08/18/2024 1:45 PM KILNMAN Office Visit [facility] - ENT [address] [place] [phone] Neri Delgado MD [address] [place] [address] 08/30/2024 2:20 PM KILNMAN Appointment [facility] [address] [place] [address] documented as of this encounter Visit Diagnoses Not on filedocumented in this encounter Care Teams Membership Director Relationship Specialty Start Date End Date Taniya Grimes MD [address] 2L DIV OF GEN [place] [address] PCP - General 07/01/20 05/10/22 Marylu Marie DO [address] 2L DIV OF GEN [place] [address] Resident - PCP Student Resident 06/26/20 01/11/22 documented as of this encounter
--- OUTSIDE RECORDS SUMMARY | 2024-07-26 08:38 | XMS_ITS | Encounter Summary ---
Author Organization [facility] Health Address [address] [place] [address] Care Team Providers Care Production Ski Repairer Name Role Phone Marylu Marie DO Unavailable Taniya Grimes MD Primary Care Provider Reason for Visit * Reason Onset Date Comments Results 04/08/2021 Encounter Details Date Type Department Care Team (Late st Contact Info) Description 04/08/2021 Telephone [facility] Endocrinology, Diabetes and Metabolism [address] [place] [address], [place] [phone] Yosi Fox MD [address] [place] [address] [place] [address] Results Social History Tobacco Use Types Packs/Day [...] like to speak with him directly. CB: [phone] documented in this encounter Plan of Treatment Upcoming Encounters Date Type Department Care Team (Late st Contact Info) Description 08/02/2024 2:20 PM DIET THERAPIST Appointment [facility] [address] [place] [address] 08/02/2024 3:00 PM DIET THERAPIST Office Visit [facility] - Hematology/Oncology [address] [place] [phone] Remi Beckett MD [address] [place] [address] 08/18/2024 1:45 PM DIET THERAPIST Office Visit [facility] - ENT [address] [place] [phone] Neri Delgado MD [address] [place] [address] 08/30/2024 2:20 PM DIET THERAPIST Appointment [facility] [address] [place] [phone] documented as of this encounter Visit Diagnoses Not on filedocumented in this encounter Care Teams Production Ski Repairer Relationship Specialty Start Date End Date Taniya Grimes MD [address] [facility] 2L DIV OF [facility] [place] [address] PCP - General 07/01/20 05/10/22 Marylu Marie DO [address] [facility] 2L DIV OF [facility] [place] [address] Resident - PCP Student Resident 06/26/20 01/11/22 documented as of this encounter
--- OUTSIDE RECORDS SUMMARY | 2024-07-26 08:38 | XMS_ITS | Encounter Summary ---
Author Organization [facility] Health Address [address] [facility] [place] [address] Care Team Providers Care Director Organizational Name Role Phone Marylu Marie DO Unavailable Taniya Grimes MD Primary Care Provider Encounter Details Date Type Department Care Team (Latest Contact Info) Description 05/02/2021 Orders Only [facility] End[facility]inology, Diabetes and Metabolism [address] [place] [address], [place] [phone] Yosi Bustamante MD [address] [place] [address] of Endocrinology [place], [place] [phone] Postoperative hypothyroidism; Thyroid cancer (HCC); Hypocalcemia; Other [...] st Contact Info) Description 08/02/2024 2:20 PM REFRIGERATING TECHNICIAN Appointment [facility] [address] [place] [address] 08/02/2024 3:00 PM REFRIGERATING TECHNICIAN Office Visit [facility] - Hematology/Oncology [address] [place] [phone] Remi Beckett MD [address] [place] [phone] 08/18/2024 1:45 PM REFRIGERATING TECHNICIAN Office Visit [facility] - ENT [address] [place] [phone] Neir Delgado MD [address] [place] [phone] 08/30/2024 2:20 PM REFRIGERATING TECHNICIAN Appointment [facility] [address] [place] [phone] documented as of this encounter Visit Diagnoses Diagnosis Postoperative hypothyroidism Postsurgical hypothyroidism Thyroid cancer (HCC) Malignant neoplasm of thyroid gland Hypocalcemia Other hypoparathyroidism (HCC) documented in this encounter Care Teams Director Organizational Relationship Specialty Start Date End Date Taniya rGimes MD [address] [place] [address] 2L DIV OF [facility] [place] [address] PCP - General 07/01/20 05/10/22 Marylu Marie DO [address] [place] [address] 2L DIV OF [facility] [place] [address] Resident - PCP Student Resident 06/26/20 01/11/22 documented as of this encounter
--- OUTSIDE RECORDS SUMMARY | 2024-07-26 08:38 | XMS_ITS | Encounter Summary ---
Author Organization [facility] Health Address [address] [facility] [place] [address] Care Team Providers Care Professor Of Languages Name Role Phone Marylu Marie DO Unavailable [phone] Taniya Grimes MD Primary Care Provider Encounter Details Date Type Department Care Team (Late st Contact Info) Description 10/15/2021 Orders Only [facility], Diabetes and Metabolism [address] [place] [address], [place] [phone] Yosi Bustamante MD [address] [place] [address] of Endocrinology [place], [place] [phone] Other hypoparathyroidism Social History Tobacco Use Types [...] Contact Info) Description 08/02/2024 2:20 PM AUTO SERVICE DISPATCHER Appointment [facility] [address] [place] [address] 08/02/2024 3:00 PM AUTO SERVICE DISPATCHER Office Visit [facility] - Hematology/Oncology [address] [place] [phone] Remi Beckett MD [address] [place] [phone] 08/18/2024 1:45 PM AUTO SERVICE DISPATCHER Office Visit [facility] [address] [place] [phone] Neri Delgado MD [address] [place] [address] 08/30/2024 2:20 PM AUTO SERVICE DISPATCHER Appointment [facility] [address] [place] [phone] documented as of this encounter Visit Diagnoses Diagnosis Other hypoparathyroidism (HCC)- Primary documented in this encounter Care Teams Professor Of Languages Relationship Specialty Start Date End Date Taniya Grimes MD [address] [place] [address] [address] [phone] PCP - General 07/01/20 05/10/22 Marylu Marie DO [address] [place] [address] [address] [place] [address] Resident - PCP Student Resident 06/26/20 01/11/22 documented as of this encounter
--- OUTSIDE RECORDS SUMMARY | 2024-07-26 08:38 | XMS_ITS | Encounter Summary ---
Author Organization [facility] Health Address [address] [facility] [place] [address] Care Team Providers Care Shale Processing Technician Name Role Phone Marylu Marie DO Unavailable Taniya Grimes MD Primary Care Provider Reason for Visit * Reason Onset Date Comments MEDICATION REFILL 09/08/2021 Encounter Details Date Type Department Care Team (Late st Contact Info) Description 09/08/2021 Refill [facility] [address] [place] [address], [place] [phone] Taniya Grimes MD [address] [place] [address] [place] [phone] MEDICATION REFILL Social History Tobacco Use Types [...] 1 TABLET BY MOUTH DAILY FOR STOMACH ERTY AND SUPPLY OFFICER documented in this encounter Plan of Treatment Upcoming Encounters Date Type Department Care Team (Late st Contact Info) Description 08/02/2024 2:20 PM PROPERTY AND SUPPLY OFFICER Appointment [facility] [address] [place] [address] 08/02/2024 3:00 PM PROPERTY AND SUPPLY OFFICER Office Visit [facility] - Hematology/Oncology [address] [place] [phone] Remi Beckett MD [address] [place] [phone] 08/18/2024 1:45 PM PROPERTY AND SUPPLY OFFICER Office Visit [facility] [address] [place] [phone] Neri Delgado MD [address] [place] [phone] 08/30/2024 2:20 PM PROPERTY AND SUPPLY OFFICER Appointment [facility] [address] [place] [phone] documented as of this encounter Visit Diagnoses Diagnosis Gastroesophageal reflux disease, unspecified whether esophagitis present documented in this encounter Care Teams Shale Processing Technician Relationship Specialty Start Date End Date Taniya Grimes MD [address] [facility] 2L DIV [facility] [place] [address] PCP - General 07/01/20 05/10/22 Marylu Marie DO [address] [facility] 2L DIV [facility] [place] [address] Resident - PCP Student Resident 06/26/20 01/11/22 documented as of this encounter
--- OUTSIDE RECORDS SUMMARY | 2024-07-26 08:38 | XMS_ITS | Encounter Summary ---
Author Organization [facility] Health Address [address] [place] [address] Care Team Providers Care Svp Name Role Phone Marylu Marie DO Unavailable Taniya Grimes MD Primary Care Provider Reason for Visit * Reason Onset Date Comments MEDICATION REFILL 06/10/2021 Encounter Details Date Type Department Care Team (Late st Contact Info) Description 06/10/2021 Refill [facility] Medicine [address] [place] [address], [place] [address] Marylu Marie DO [address] [place] [address] [place] [address] MEDICATION REFILL Social History Tobacco Use Types [...] Sita Cotter RN - 06/10/2021 10:52 AM ASSESSMENT MANAGER MEDICATION FILLED PER PROTOCOL Disposition of prescription: e-prescribed to preferred pharmacy Response to patient: None necessary SSMENT MANAGER documented in this encounter Plan of Treatment Upcoming Encounters Date Type Department Care Team (Late st Contact Info) Description 08/02/2024 2:20 PM ASSESSMENT MANAGER Appointment [facility] [address] [place] [phone] 08/02/2024 3:00 PM ASSESSMENT MANAGER Office Visit [facility] - Hematology/Oncology [address] [place] [phone] Remi Beckett MD [address] [place] [phone] 08/18/2024 1:45 PM ASSESSMENT MANAGER Office Visit [facility] [address] [place] [phone] Neri Delgado MD [address] [place] [address] 08/30/2024 2:20 PM ASSESSMENT MANAGER Appointment [facility] [address] [place] [phone] documented as of this encounter Visit Diagnoses Not on filedocumented in this encounter Care Teams Svp Relationship Specialty Start Date End Date Taniya Grimes MD [address] [place] [address] OF [facility] [place] [address] PCP - General 07/01/20 05/10/22 Marylu Marie DO [address] [place] [address] Resident - PCP Student Resident 06/26/20 01/11/22 documented as of this encounter
--- OUTSIDE RECORDS SUMMARY | 2024-07-26 08:38 | XMS_ITS | Encounter Summary ---
Author Organization [facility] Health Address [address] [facility] [place] [address] Care Team Providers Care Exhauster Name Role Phone Marylu Marie DO Unavailable Taniya Grimes MD Primary Care Provider Encounter Details Date Type Department Care Team (Latest Contact Info) Description 10/08/2021 Orders Only [facility] End[facility]ology, Diabetes and Metabolism [address] [place] [address], [place] [phone] Yosi Bustamante MD [address] [place] [address] of Endocrinology [place], [place] [phone] Postoperative hypothyroidism; Thyroid cancer (HCC); Hypocalcemia; Other [...] st Contact Info) Description 08/02/2024 2:20 PM SAFETY INSPECTOR Appointment [facility] [address] [place] [phone] 08/02/2024 3:00 PM SAFETY INSPECTOR Office Visit [facility] - Hematology/Oncology [address] [place] [phone] Remi Beckett MD [address] [place] [phone] 08/18/2024 1:45 PM SAFETY INSPECTOR Office Visit [facility] [address] [place] [phone] Neri Delgado MD [address] [place] [address] 08/30/2024 2:20 PM SAFETY INSPECTOR Appointment [facility] [address] [place] [phone] documented as of this encounter Visit Diagnoses Diagnosis Postoperative hypothyroidism Postsurgical hypothyroidism Thyroid cancer (HCC) Malignant neoplasm of thyroid gland Hypocalcemia Other hypoparathyroidism (HCC) documented in this encounter Care Teams Exhauster Relationship Specialty Start Date End Date Taniya Grimes MD [address] [place] [address] OF [facility] [place] [phone] PCP - General 07/01/20 05/10/22 Marylu Marie DO [facility] [address] OF [facility] [place] [address] Resident - PCP Student Resident 06/26/20 01/11/22 documented as of this encounter
--- OUTSIDE RECORDS SUMMARY | 2024-07-26 08:38 | XMS_ITS | Encounter Summary ---
Author Organization [facility] Address [address] [facility] [place] [address] Care Team Providers Care Windows Infrastructure Engineer Name Role Phone Marylu Marie DO Unavailable Taniya Grimes MD Primary Care Provider [phone] Reason for Referral * Evaluate (Routine) - Closed Specialty Diagnoses / Procedures Referred By Yuan robins Referred To Contact ENT-Otolaryngology Diagnoses Postoperative hypothyroidism Thyroid cancer (HCC) Hypocalcemia Other hypoparathyroidism (HCC) Yosi Bustamante MD [address] [place] [address] [address] [place] [address] Neri Delgado MD [facility] [place] [address] Referral ID Status Reason Start Date Expiration Date V isits Requested Visits Authorized [id number] Closed Specialty Services Required 10/08/2021 10/08/2022 1 1 Reason for Visit * Reason Comments Thyroid Cancer Thyroid Problem HYPOTHYROIDISM Thyroid Problem S/P THYROIDECTOMY, S /P RADIOACTIVE IODINE ABLATION General HYPOPARATHYROIDISM, HYPOCALCEMIA Encounter Details Date Type Department Care Team (Latest Contact Info) Description 10/08/2021 3:00 PM CDT Office Visit [facility] [address] [place] [phone] Yosi Bustamante MD [address] [place] [address] [address] [place] [address] Postoperative hypothyroidism (Primary Dx); Thyroid cancer (HCC); [...] option 1 or you can send a [employer] message. Normal business hours are from 8:00 am to 4:30 pm Wednesday through Wednesday. Fax# is [phone]. REFILL REQUESTS: contact your pharmacy who will reach out to us. If you have changes to your prescription, you will need to contact us directly at [phone] and select option 2 or send your [employer] message. We request that all prescription refills be requested during regular office phone hours. If your prescription requires a prior authorization, it may take several days for us to get approval from [employer] company before we can refill your prescription. Please do not wait until you are completely out before contacting us. MEDICAL EMERGENCY: Please call 911 or go to the nearest Emergency Room. After hours urgent calls that cannot wait until phone lines are open on the next business day are given to the [employer] physician client integration manager. Please call [phone] and identify yourself as a patient in our practice needing to speak to [employer]. The bench shear operator will contact the physician client integration manager. You can generally expect a return call within 30 minutes. On weekends, physicians are seeing hospitalized patients and there may be a longer wait. Test and laboratory results: Our practice typically reports lab and test results through letters orMyChart. Please allow 10 days from when your tests are completed to receive the results in the mail. Labs performed outside of [facility] facility, [facility] or [facility] may delay the results getting to us. Please contact the lab and request that they are faxed to us at [phone]. IF GOING TO [facility] or [facility]- TAKE LAB ORDER WITH YOU or they may turn you away [facility]'s missed appointment policy is: Patients with 3 consecutively missed appointments OR 3 missed appointments in a 12 month period will no longer be seen by Endocrinology. They will be asked to seek consultation outside of [facility]. A missed appointment is defined as: ??? Arriving to a scheduled appointment too late to be seen (Patients who arrive to clinic later than their scheduled appointment time may not be seen) ??? Not showing up or calling 24-48 hours prior to an appointment ??? An appointment cancelled less than 24 hours in advance ADDRESS: [address] [place] [id number] Website: [email or web address] for additional information about [facility] and an interactive health encyclopedia. BP 118/78 [...] 03/19/2021 5:28 PM . I, Dr. DISHA ALBERT M.D. have personally reviewed and interpreted this [...] on 03/24/2021 3:12 PM . Results for MARIFERBRISA ( ) as of 10/07/2021 12:31 Ref. [...] TR 4 nodule, recommend short-term follow-up (image [id number]). The second nodule is well-circumscribed, hypoechoic, solid nodule, measuring 0.6 x 0.6 x 0.3 cm; this is a TR 4 nodule, which is not suspicious (image [id number]). The isthmus is mildly thickened. Vascularity of [...] its size. Dictated by Kendall Quiroz MD (Jailer) I, Dr. RU BAILEY M.D. have personally [...] Dictated by Molly Rao M.D. (vice president network development) Dr. MARYSE Mckeon M.D. have personally reviewed [...] fluticasone propionate (FLONASE) 50 MCG/ACT nasal spray, [place] 2 (two) sprays into each nostril once daily, Disp: 48 g, Rfl: 0 gabapentin (NEURONTIN) 300 MG capsule, TAKE 1 CAPSULE BY MOUTH THREE TIMES A DAY, Disp: 90 capsule,Rfl: 5 [id number]-[id number]-BRT-C-HYAL PO, Take 1 tablet by mouth 3 [...] PROC ULTRASOUND THYROID W/WO FNA BIOPSY Procedure(s): MN US SOFT TISS HEAD&NCK R-T IMG Pre-Procedure [...] st Contact Info) Description 08/02/2024 2:20 PM SWITCH CREW SUPERVISOR Appointment [facility] [address] [place] [address] 08/02/2024 3:00 PM SWITCH CREW SUPERVISOR Office Visit [facility] - Hematology/Oncology [address] [place] [phone] Remi Beckett MD [address] [place] [phone] 08/18/2024 1:45 PM SWITCH CREW SUPERVISOR Office Visit [facility] - ENT [address] [place] [address] Neri Delgado MD [address] [place] [address] 08/30/2024 2:20 PM SWITCH CREW SUPERVISOR Appointment [facility] [address] [place] [address] Scheduled Referrals Name Type Priority Associated Diagnoses Orde r Schedule Ref to ENT Otol[facility]ology - [facility] Outpatient Referral Routine Postoperative hypothyroidism Thyroid cancer (HCC) Hypocalcemia Other hypoparathyroidism Expected: 10/08/2021 (Approximate), Expires: 10/08/2022 documented as of this encounter Procedures Procedure Name Priority Date/Time Associated Diagnosis Comments MN US SOFT TISS HEAD&NCK R-T IMG Routine 10/08/2021 3:06 PM CDT Postoperative hypothyroidism Thyroid cancer (HCC) Hypocalcemia Other hypoparathyroidism documented in this encounter Results * (ABNORMAL) VITAMIN D 25-HYDROXY (08/14/2022 3:21 PM SWITCH CREW SUPERVISOR) Vitamin D, 25 Hydroxy 21.0(L) 30.0 - 80.0 ng/mL 08/14/2022 4:45 PM SWITCH CREW SUPERVISOR [facility] Comment: The recommendations for 25-Hydroxy [...] Lab Venipuncture / Unknown 08/14/2022 3:21 PM SWITCH CREW SUPERVISOR 08/14/2022 3:39 PM SWITCH CREW SUPERVISOR Yosi Bustamante MD LAB - CHEMISTRY ORD ERABLES [facility] [address] [place] [address], [facility] [phone] * (ABNORMAL) RENAL FUNCTION PANEL (08/14/2022 3:21 PM SWITCH CREW SUPERVISOR) BUN 13 7 - 26 mg/dL 08/14/2022 4:15 PM [facility] Creatinine 1.11(H) 0.56 - 0.96 mg/dL 08/14/2022 4:15 PM [facility] Sodium 138 136 - 145 mmol/L 08/14/2022 4:15 PM [facility] Potassium 3.6 3.5 - 4.5 mmol/L 08/14/2022 4:15 PM [facility] Chloride 103 98 - 107 mmol/L 08/14/2022 4:15 PM [facility] CO2 23 22 - 29 mmol/L 08/14/2022 4:15 PM [facility] Glucose 84 70 - 115 mg/dL 08/14/2022 4:15 PM [facility] Albumin 3.7 3.4 - 5.0 g/dL 08/14/2022 4:15 PM [facility] Calcium 8.3(L) 8.4 - 10.2 mg/dL 08/14/2022 4:15 PM [facility] Phosphorus 4.2 2.9 - 5.1 mg/dL 08/14/2022 4:15 PM [facility] Anion Gap 16 8 - 18 08/14/2022 4:15 PM [facility] BUN/Creatinine Ratio 12 7 - 23 08/14/2022 4:15 PM [facility] Osmolality Calculated 285 270 - 300 mOsm/kg 08/14/2022 4:15 PM [facility] eGFR by CKD-EPI 56(L) >=90 mL/min/1.7 3 m2 08/14/2022 4:15 PM [facility] Blood BLOOD SPECIMEN / Unknown Lab Venipuncture / Unknown 08/14/2022 3:21 PM SWITCH CREW SUPERVISOR 08/14/2022 3:39 PM [facility] Yosi Bustamante MD LAB - CHEMISTRY ORD ERABLES [facility] [address] [place] [address], [facility] [phone] * VITAMIN D 25-HYDROXY (05/01/2022 1:17 PM CDT) Pathologist [facility] Vitamin D, 25 Hydroxy 31.0 30.0 - 80.0 ng/mL 05/01/2022 2:38 PM CDT [facility] Comment: The recommendations for 25-Hydroxy Vitamin [...] Bustamante MD LAB - CHEMISTRY ORD ERABLES [facility] [address] [place] [address], [facility] [phone] * (ABNORMAL) RENAL FUNCTION PANEL (05/01/2022 1:17 PM CDT) BUN 24 7 - 26 mg/dL 05/01/2022 2:20 PM [facility] Creatinine 1.05(H) 0.56 - 0.96 mg/dL 05/01/2022 2:20 PM [facility] Sodium 135(L) 136 - 145 mmol/L 05/01/2022 2:20 PM [facility] Potassium 4.3 3.5 - 4.5 mmol/L 05/01/2022 2:20 PM [facility] Chloride 99 98 - 107 mmol/L 05/01/2022 2:20 PM [facility] CO2 25 22 - 29 mmol/L 05/01/2022 2:20 PM [facility] Glucose 97 70 - 115 mg/dL 05/01/2022 2:20 PM [facility] Albumin 4.0 3.4 - 5.0 g/dL 05/01/2022 2:20 PM [facility] Calcium 9.3 8.4 - 10.2 mg/dL 05/01/2022 2:20 PM [facility] Phosphorus 5.1 2.9 - 5.1 mg/dL 05/01/2022 2:20 PM [facility] Anion Gap 15 8 - 18 05/01/2022 2:20 PM [facility] BUN/Creatinine Ratio 23 7 - 23 05/01/2022 2:20 PM [facility] Osmolality Calculated 284 270 - 300 mOsm/kg 05/01/2022 2:20 PM [facility] eGFR by CKD-EPI 60(L) >=90 mL/min/1.7 3 m2 05/01/2022 2:20 PM [facility] Blood BLOOD SPECIMEN / Unknown Lab Venipuncture / Unknown 05/01/2022 1:17 PM CDT 05/01/2022 1:51 PM CDT Yosi Bustamante MD LAB - CHEMISTRY ORD ERABLES Performing Organization Address City/[facility]/ZIP Co de Phone Number [facility] [address] [place] [address], [facility] [phone] * VITAMIN D 25-HYDROXY (10/24/2021 3:04 PM CDT) [facility] Vitamin D, 25 Hydroxy 36.0 30.0 - 80.0 ng/mL 10/24/2021 5:29 PM CDT [facility] Comment: The recommendations for 25-Hydroxy Vitamin [...] ORD ERABLES Performing Organization Address [facility]/ZIP Co de Phone Number [facility] [address] [place] [address], [facility] [phone] * (ABNORMAL) RENAL FUNCTION PANEL (10/24/2021 3:04 PM CDT) BUN 10 7 - 26 mg/dL 10/24/2021 5:29 PM [facility] Creatinine 0.69 0.56 - 0.96 mg/dL 10/24/2021 5:29 PM [facility] Sodium 141 136 - 145 mmol/L 10/24/2021 5:29 PM [facility] Potassium 4.1 3.5 - 4.5 mmol/L 10/24/2021 5:29 PM [facility] Chloride 105 98 - 107 mmol/L 10/24/2021 5:29 PM [facility] CO2 24 22 - 29 mmol/L 10/24/2021 5:29 PM [facility] Glucose 97 70 - 115 mg/dL 10/24/2021 5:29 PM [facility] Albumin 4.0 3.4 - 5.0 g/dL 10/24/2021 5:29 PM [facility] Calcium 8.3(L) 8.4 - 10.2 mg/dL 10/24/2021 5:29 PM [facility] Phosphorus 3.8 2.9 - 5.1 mg/dL 10/24/2021 5:29 PM [facility] Anion Gap 16 8 - 18 10/24/2021 5:29 PM [facility] BUN/Creatinine Ratio 14 7 - 23 10/24/2021 5:29 PM [facility] Osmolality Calculated 291 270 - 300 mOsm/kg 10/24/2021 5:29 PM [facility] eGFR by CKD-EPI >90 >=90 mL/min/1.7 3 m2 10/24/2021 5:29 PM [facility] Blood BLOOD SPECIMEN / Unknown Lab Venipuncture / Unknown 10/24/2021 3:04 PM CDT 10/24/2021 4:55 PM T Yosi Bustamante MD LAB - CHEMISTRY ORD ERABLES [facility] [address] [place] [address], [facility] [phone] * VITAMIN D 25-HYDROXY (10/08/2021 4:37 PM CDT) [facility] Vitamin D, 25 Hydroxy 35.0 30.0 - 80.0 ng/mL 10/08/2021 5:48 PM CDT [facility] Comment: The recommendations for 25-Hydroxy Vitamin [...] CHEMISTRY ORD ERABLES [facility] [address] [place] [address], [facility] [phone] * (ABNORMAL) RENAL FUNCTION PANEL (10/08/2021 4:37 PM CDT) [facility] BUN 13 7 - 26 mg/dL 10/08/2021 5:32 PM CDT [facility] Creatinine 0.68 0.56 - 0.96 mg/dL 10/08/2021 5:32 PM CDT [facility] Sodium 141 136 - 145 mmol/L 10/08/2021 5:32 PM T [facility] Potassium 4.0 3.5 - 4.5 mmol/L 10/08/2021 5:32 PM [facility] Chloride 104 98 - 107 mmol/L 10/08/2021 5:32 PM [facility] CO2 23 22 - 29 mmol/L 10/08/2021 5:32 PM [facility] Glucose 127(H) 70 - 115 mg/dL 10/08/2021 5:32 PM [facility] Albumin 3.8 3.4 - 5.0 g/dL 10/08/2021 5:32 PM [facility] Calcium 8.5 8.4 - 10.2 mg/dL 10/08/2021 5:32 PM [facility] Phosphorus 4.8 2.9 - 5.1 mg/dL 10/08/2021 5:32 PM [facility] Anion Gap 18 8 - 18 10/08/2021 5:32 PM [facility] BUN/Creatinine Ratio 19 7 - 23 10/08/2021 5:32 PM [facility] Osmolality Calculated 294 270 - 300 mOsm/kg 10/08/2021 5:32 PM [facility] eGFR by CKD-EPI >90 >=90 mL/min/1.7 3 m2 10/08/2021 5:32 PM [facility] Blood BLOOD SPECIMEN / Unknown Lab Venipuncture / Unknown 10/08/2021 4:37 PM CDT 10/08/2021 5:00 PM CDT Yosi Bustamante MD LAB - CHEMISTRY ORD ERABLES [facility] [address] [place] [address], [facility] [phone] * [place] US SOFT TISS HEAD&NCK R-T IMG (10/08/2021 [...] (HCC) documented in this encounter Care Teams Windows Infrastructure Engineer Relationship Specialty Start Date End Date Taniya Grimes MD [address] DIV [place] [address] PCP - General 07/01/20 05/10/22 Marylu Marie DO [address] DIV OF [facility] [place] [address] Resident - PCP Student Resident 06/26/20 01/11/22 documented as of this encounter
--- OUTSIDE RECORDS SUMMARY | 2024-07-26 08:38 | XMS_ITS | Encounter Summary ---
Author Organization [facility] Health Address [address] [facility] [place] [address] Care Team Providers Care Turpentiner Name Role Phone Marylu Marie DO Unavailable Taniya Grimes MD Primary Care Provider Reason for Visit * Reason Comments Follow-up Encounter Details Date Type Department Care Team (Late st Contact Info) Description 10/24/2021 1:45 PM CDT Office Visit [facility] Otol[facility] [address] [place] [phone] Neri Delgado MD [address] [place] [phone] Thyroid cancer (HCC) (Primary Dx) Social History [...] 2:03 PM CDT Thank you for visiting [facility] Otolaryngology - Head & Neck [...] an appointment, please call our office at [phone] Wednesday through Wednesday from 8:30 am to4:30 pm. You can also request a routine appointment through your [employer] account. Prescription Refills Contact your pharmacy to [...] call the medical exchangeat and ask the slitter and cutter operator to page the ENT physician microbiology quality control technician. *Caller ID blocking service will need to be turned off for your call to be returned. We also specialize in Hearing Aids, Allergy testing, swallowing disorders, voice problems, cancer diagnosis, and so much more. Visit our website at [email or web address] for information about our practice and an interactive health encyclopedia. documented in this encounter Progress Notes * Marbin Zaldivar MD - 10/24/2021 2:22 PM CDT CC: Chief Complaint Patient presents with ??? Follow-up Diagnosis: Site: Thyroid Histology: PTC Stage: [id number] AJCC IVb Details: Positive margins, LVI +, PNI + (including Right RLN), nodes, JADON + Treatment History: 08/19/20: total thyroidectomy requiring sacrifice of Right RLN/tracheal resection/reanastamosis, bilateral lateral and central neck dissection. HPI: Brisa Hogan is a 61 year old female presenting for follow up of her complex thyroid cancer andassociated dysphonia/dysphagia. After surgery pt worked closely with [employer] EMERGENCY SERVICES MANAGER on her voice and swallow and over [...] fluticasone propionate (FLONASE) 50 MCG/ACT nasal spray [place] 2 (two) sprays into each nostril once daily ??? gabapentin (NEURONTIN) 300 MG capsule TAKE 1 CAPSULE BY MOUTH THREE TIMES A DAY ??? [id number]-C-HYAL PO Take 1 tablet by mouth 3 [...] III-XII grossly intact Imaging: US report (10/24 [facility] office): non-enlarged nodes bilaterally, no structural disease [...] st Contact Info) Description 08/02/2024 2:20 PM STEEL DIE PRINTER Appointment [facility] [address] [place] [address] 08/02/2024 3:00 PM STEEL DIE PRINTER Office Visit [facility] - Hematology/Oncology [address] [place] [phone] Remi Beckett MD [address] [place] [phone] 08/18/2024 1:45 PM STEEL DIE PRINTER Office Visit [facility] - ENT [address] [place] [phone] Neri Delgado MD [address] [place] [address] 08/30/2024 2:20 PM STEEL DIE PRINTER Appointment [facility] [address] [place] [address] documented as of this encounter Visit Diagnoses Diagnosis Thyroid cancer (HCC)- Primary Malignant neoplasm of thyroid gland documented in this encounter Care Teams Turpentiner Relationship Specialty Start Date End Date Taniya Grimes MD [address] [place] [address] OF [facility] [place] [address] PCP - General 07/01/20 05/10/22 Marylu Marie DO [address] OF [facility] [place] [address] Resident - PCP Student Resident 06/26/20 01/11/22 documented as of this encounter
--- OUTSIDE RECORDS SUMMARY | 2024-07-26 08:39 | XMS_ITS | Encounter Summary ---
Author Organization [facility] Health Address [address] [facility] [place] [address] Care Team Providers Care Director Teen Post Name Role Phone Marylu Marie DO Unavailable [phone] Taniya Grimes MD Primary Care Provider Reason for Visit * Reason Comments Refill Request Encounter Details Date Type Department Care Team (Late st Contact Info) Description 03/24/2021 Refill [facility] [address] [place] [address], [place] [address] Marylu Marie DO [address] [place] [address] OF [facility] [place] [address] Refill Request Social History Tobacco Use Types [...] st Contact Info) Description 08/02/2024 2:20 PM WELL BLOWER Appointment [facility] [address] [place] [address] 08/02/2024 3:00 PM WELL BLOWER Office Visit [facility] - Hematology/Oncology [address] [place] [phone] Remi Beckett MD [address] [place] [address] 08/18/2024 1:45 PM WELL BLOWER Office Visit [facility] - ENT [address] [place] [address] Neri Delgado MD [address] [place] [phone] 08/30/2024 2:20 PM WELL BLOWER Appointment [facility] [address] [place] [address] documented as of this encounter Visit Diagnoses Diagnosis Primary osteoarthritis of left hip Primary localized osteoarthrosis, pelvic region and thigh documented in this encounter Care Teams Director Teen Post Relationship Specialty Start Date End Date Taniya Grimes MD [address] [place] [address] [address] DIV OF [facility] [place] [address] PCP - General 07/01/20 05/10/22 Marylu Marie DO [address] [place] [address] [address] DIV OF [facility] [place] [address] Resident - PCP Student Resident 06/26/20 01/11/22 documented as of this encounter
--- OUTSIDE RECORDS SUMMARY | 2024-07-26 08:39 | XMS_ITS | Encounter Summary ---
Author Organization [facility] Health Address [address] [facility] [place] [address] Care Team Providers Care Real Estate Recruiter Name Role Phone Marylu Marie DO Unavailable [phone] Taniya Grimes MD Primary Care Provider Encounter [...] st Contact Info) Description 08/02/2024 2:20 PM MEAT AND POULTRY INSPECTOR Appointment [facility] [address] [place] [address] 08/02/2024 3:00 PM MEAT AND POULTRY INSPECTOR Office Visit [facility] - Hematology/Oncology [address] [place] [phone] Remi Beckett MD [address] [place] [phone] 08/18/2024 1:45 PM MEAT AND POULTRY INSPECTOR Office Visit [facility] - ENT [address] [place] [phone] Neri Delgado MD [address] [place] [phone] 08/30/2024 2:20 PM MEAT AND POULTRY INSPECTOR Appointment [facility] [address] [place] [address] documented as of this encounter Visit Diagnoses Not on filedocumented in this encounter Care Teams Real Estate Recruiter Relationship Specialty Start Date End Date Taniya Grimes MD [address] [place] [address] [address] [place] [address] PCP - General 07/01/20 05/10/22 Marylu Marie DO [address] [place] [address] [address] [place] [address] Resident - PCP Student Resident 06/26/20 01/11/22 documented as of this encounter
--- OUTSIDE RECORDS SUMMARY | 2024-07-26 08:39 | XMS_ITS | Encounter Summary ---
Author Organization [facility] Health Address [address] [place] [address] Care Team Providers Care Branch Logistics Supervisor Name Role Phone Marylu Marie DO Unavailable [phone] Taniya Grimes MD Primary Care Provider Reason for Visit * Reason Onset Date Comments Results 03/27/2021 Encounter Details Date Type Department Care Team (Late st Contact Info) Description 03/27/2021 Telephone [facility], Diabetes and Metabolism [address] [place] [address], [place] [phone] Yosi Bustamante MD [address] [place] [address] [place] [address] Results Social History Tobacco Use Types Packs/Day [...] LAST WEEK OR RESEND TO PATIENT Yosi Diana. MD Dianna Professor of Internal Medicine Division of Endocrinology Department of Internal Medicine * Telephone Encounter - Jane Abdi RN - 03/27/2021 12:25 PM CDT Pt requesting the results of her recent WARD and WBS. CB: [phone] documented in this encounter Plan of Treatment Upcoming Encounters Date Type Department Care Team (Late st Contact Info) Description 08/02/2024 2:20 PM LIVING NURSE Appointment [facility] [address] [place] [address] 08/02/2024 3:00 PM LIVING NURSE Office [facility] - H[facility]ology/Oncology [address] [place] [phone] Remi Beckett MD [address] [place] [phone] 08/18/2024 1:45 PM LIVING NURSE Office Visit [facility] - ENT [address] [place] [phone] Neri Delgado MD [address] [place] [address] 08/30/2024 2:20 PM LIVING NURSE Appointment [facility] [address] [place] [address] documented as of this encounter Visit Diagnoses Not on filedocumented in this encounter Care Teams Branch Logistics Supervisor Relationship Specialty Start Date End Date Taniya Grimes MD [address] DIV OF [facility] [place] [address] PCP - General 07/01/20 05/10/22 Marylu Marie DO [address] DIV OF [facility] [place] [address] Resident - PCP Student Resident 06/26/20 01/11/22 documented as of this encounter
--- OUTSIDE RECORDS SUMMARY | 2024-07-26 08:39 | XMS_ITS | Encounter Summary ---
Author Organization [facility] Address [address] [facility] [place] [address] Care Team Providers Care Financial Investment Adviser Name Role Phone FrankMarylu DO Unavailable Taniya Grimes MD Primary Care Provider [phone] Reason for Referral * Radiology Services (Routine) - Closed Specialty Diagnoses / Procedures Referred By Yuan t Referred To Contact Nuclear Medicine Diagnoses Thyroid cancer (HCC) Postoperative hypothyroidism Procedures NM THYROID THERAPY Yosi Bustamante MD [address] [place] [address] [address] [place] [address] [facility] Medicine [address] [place] [phone] Referral ID Status Reason Start Date Expiration Date Visits Re quested Visits Authorized [id number] Closed 03/03/2021 03/03/2022 1 1 Reason for Visit * Radiology Services (Routine) - Closed Specialty Diagnoses / Procedures Referred By Yuan robins Referred To Contact Nuclear Medicine Diagnoses Thyroid cancer (HCC) Postoperative hypothyroidism Procedures NM THYROID THERAPY Yosi Bustamante MD [address] [place] [address] [address] [place] [address] [facility] Nuclear Medicine [address] [place] [phone] Referral ID Status Reason Start Date Expiration Date Visits Re quested Visits Authorized [id number] Closed 03/03/2021 03/03/2022 1 1 Encounter Details Date Type Department Care Team (Latest Contact Info) Description 03/19/2021 1:00 PM CDT - 03/19/2021 11:59 PM CDT Hospital Encounter [facility] NUC[facility]AR MEDICINE [address] [place] [address] Yosi Bustamante MD [address] [place] [address] Discharge Disposition: Home or Self Care Social [...] A DAY 90 capsule 5 09/11/2020 03/25/2021 [id number]-[id number]-EAD-C-H YAL PO Take 1 tablet by mouth 3 times daily 06/13/2023 levothyroxine (SYNTHROID) 112 MCG tabletIndications:Postop erative hypothyroidism Take 1 (one) tablet by mouth once daily 90 tablet 4 01/13/2021 10/08/2021 Misc Natural Products (NEURIVA PO) Take 2 capsules by mouth every morning 09/14/2022 [place]-3 Fatty Acids (FISH OIL) 1000 MG capsule [...] st Contact Info) Description 08/02/2024 2:20 PM PHOTOGRAPHIC AIDE Appointment [facility] [address] [place] [address] 08/02/2024 3:00 PM PHOTOGRAPHIC AIDE Office Visit [facility]ician Group - Hematology/Oncology [address] [place] [phone] Remi Beckett MD [address] [place] [phone] 08/18/2024 1:45 PM PHOTOGRAPHIC AIDE Office Visit [facility] - ENT [address] [place] [phone] Neri Delgado MD [address] [place] [address] 08/30/2024 2:20 PM PHOTOGRAPHIC AIDE Appointment [facility] [address] [place] [address] documented as of this encounter Procedures Procedure [...] Dru Siu on 03/19/2021 5:[address] DISHA [...] millicuries documented in this encounter Care Teams Financial Investment Adviser Relationship Specialty Start Date End Date Taniya Grimes MD [address] DIV OF [facility] [place] [address] PCP - General 07/01/20 05/10/22 Marylu Marie DO [address] DIV OF [facility] [place] [address] Resident - PCP Student Resident 06/26/20 01/11/22 documented as of this encounter
--- OUTSIDE RECORDS SUMMARY | 2024-07-26 08:39 | XMS_ITS | Encounter Summary ---
Author Organization [facility] Health Address [address] [facility] [address] [place] [address] Care Team Providers Care Screen Printing Loader Unloader Name Role Phone Marylu Marie DO Unavailable [phone] Taniya Grimes MD Primary Care Provider Encounter [...] Contact Info) Description 08/02/2024 2:20 PM DEAF AND HARD OF HEARING TEACHER Appointment [facility] [address] [place] [phone] 08/02/2024 3:00 PM DEAF AND HARD OF HEARING TEACHER Office Visit [facility] - Hematology/Oncology [address] [place] [phone] Remi Beckett MD [address] [place] [phone] 08/18/2024 1:45 PM DEAF AND HARD OF HEARING TEACHER Office Visit [facility] - ENT [address] [place] [phone] Neri Delgado MD [address] [place] [address] 08/30/2024 2:20 PM DEAF AND HARD OF HEARING TEACHER Appointment [facility] [address] [place] [address] documented as of this encounter Visit Diagnoses Not on filedocumented in this encounter Care Teams Screen Printing Loader Unloader Relationship Specialty Start Date End Date Taniya Grimes MD [address] [place] [address] [address] [place] [address] PCP - General 07/01/20 05/10/22 Marylu Marie DO [address] [place] [address] [address] [place] [address] Resident - PCP Student Resident 06/26/20 01/11/22 documented as of this encounter
--- OUTSIDE RECORDS SUMMARY | 2024-07-26 08:39 | XMS_ITS | Encounter Summary ---
Author Organization [facility] Health Address [address] [place] [address] Care Team Providers Care Machine Staker Name Role Phone Marylu Marie DO Unavailable [phone] Taniya Grimes MD Primary Care Provider Encounter Details Date Type Department Care Team (Latest Contact Info) Description 03/19/2021 10:33 AM CDT - 03/19/2021 12:59 PM CDT Hospital Encounter [facility] OP DRAW STATION [address] [place] [phone] Unknown, Provider Discharge Disposition: Home or Self [...] fluticasone propionate (FLONASE) 50 MCG/ACT nasal spray [place] 2 sprays into each nostril 16 g 09/06/2019 04/11/2021 gabapentin (NEURONTIN) 300 MG capsuleIndications:Prima ry osteoarthritis of left hip TAKE 1 CAPSULE BY MOUTH THREE TIMES A DAY 90 capsule 5 09/11/2020 03/25/2021 [id number]-[id number]-WED-C-H YAL PO Take 1 tablet by mouth 3 times daily 06/13/2023 levothyroxine (SYNTHROID) 112 MCG tabletIndications:Postop erative hypothyroidism Take 1 (one) tablet by mouth once daily 90 tablet 4 01/13/2021 10/08/2021 Misc Natural Products (NEURIVA PO) Take 2 capsules by mouth every morning 09/14/2022 [place]-3 Fatty Acids (FISH OIL) 1000 MG capsule [...] Contact Info) Description 08/02/2024 2:20 PM PRINCIPAL JAVA SOFTWARE ENGINEER Appointment [facility] [address] [place] [address] 08/02/2024 3:00 PM PRINCIPAL JAVA SOFTWARE ENGINEER Office Visit [facility] - Hematology/Oncology [address] [place] [phone] Remi Beckett MD [address] [place] [phone] 08/18/2024 1:45 PM PRINCIPAL JAVA SOFTWARE ENGINEER Office Visit [facility] - ENT [address] [place] [phone] Neri Delgado MD [address] [place] [address] 08/30/2024 2:20 PM PRINCIPAL JAVA SOFTWARE ENGINEER Appointment [facility] [address] [place] [address] documented as of this encounter Procedures Procedure [...] 38.5 ng/mL 03/20/2021 5:08 PM CDT [facility] ([facility]) Comment: According to the National Academy [...] is 0.1 ng/mL Thyroglobulin measured by Lisbet [place] Immunometric Assay Blood BLOOD SPECIMEN / Unknown Lab Venipuncture / Unknown 03/19/2021 11:20 AM CDT 03/19/2021 11:28 AM CDT [facility] ([facility]) - 03/20/2021 5:08 PM CDT Performed at: ??01 - [facility] [address], [place], [place] ??[id number] Acute Care Nurse Practitioner: Oral Melendez PhD, Phone: ??[phone] Yosi Bustamante MD LAB - CHEMISTRY ORD ERABLES [facility] ([facility]) [address] [place] [address] * T4 FREE (03/19/2021 11:20 AM CDT) [facility] T4 Free 1.4 0.7 - 1.5 ng/dL 03/19/2021 1:21 PM CDT [facility] HOSPITAL Blood BLOOD SPECIMEN / Unknown Lab Venipuncture / Unknown 03/19/2021 11:20 AM CDT 03/19/2021 11:29 AM CDT Yosi Bustamante MD LAB - CHEMISTRY ORD ERABLES Performing Organization Address City/[facility]/ZIP Co de Phone Number [facility] [place] [phone], [facility] [phone] * THYROGLOBULIN REFLEX PROFILE (03/19/2021 11:20 AM CDT) [facility] Thyroglobulin Antibody <1.0 0.0 - 0.9 IU/mL 03/20/2021 5:08 PM CDT [facility] ([facility]) Comment:Thyroglobulin Antibo dy measured by Lisbet Marcos Methodology Blood BLOOD SPECIMEN / Unknown Lab Venipuncture / Unknown 03/19/2021 11:20 AM CDT 03/19/2021 11:28 AM CDT [facility]ative [facility]) - 03/20/2021 5:08 PM CDT Performed at: ??01 - [address] ??[id number] Acute Care Nurse Practitioner: Oral Melendez PhD, Phone: ??[phone] Yosi Bustamante MD LAB - CHEMISTRY ORD ERABLES [facility] ([facility]) [address] [place] [address] * VITAMIN D 25-HYDROXY (03/19/2021 11:20 AM CDT) [facility] Vitamin D, 25 Hydroxy 51.0 30.0 - 80.0 ng/mL 03/19/2021 12:23 PM [facility] Comment: The recommendations for 25-Hydroxy Vitamin [...] - CHEMISTRY ORD ERABLES Performing Organization Address [facility] Co de Phone Number [facility] [address] [place] [phone], [facility] [phone] * (ABNORMAL) RENAL FUNCTION PANEL (03/19/2021 11:20 AM CDT) [facility] BUN 13 7 - 26 mg/dL 03/19/2021 11:58 AM [facility] Creatinine 0.75 0.56 - 0.96 mg/dL 03/19/2021 11:58 AM [facility] Sodium 144 136 - 145 mmol/L 03/19/2021 11:58 AM [facility] Potassium 4.5 3.5 - 4.5 mmol/L 03/19/2021 11:58 AM [facility] Chloride 106 98 - 107 mmol/L 03/19/2021 11:58 AM [facility] CO2 28 22 - 29 mmol/L 03/19/2021 11:58 AM [facility] Glucose 94 70 - 115 mg/dL 03/19/2021 11:58 AM [facility] Albumin 3.9 3.4 - 5.0 g/dL 03/19/2021 11:58 AM [facility] Calcium 8.1(L) 8.4 - 10.2 mg/dL 03/19/2021 11:58 AM [facility] Phosphorus 4.7 2.9 - 5.1 mg/dL 03/19/2021 11:58 AM [facility] Anion Gap 15 8 - 18 03/19/2021 11:58 AM [facility] BUN/Creatinine Ratio 17 7 - 23 03/19/2021 11:58 AM [facility] Osmolality Calculated 298 270 - 300 mOsm/kg 03/19/2021 11:58 AM [facility] eGFR by CKD-EPI 85(L) >=90 mL/min/1.7 3 m2 03/19/2021 11:58 AM [facility] Blood BLOOD SPECIMEN / Unknown Lab Venipuncture / Unknown 03/19/2021 11:20 AM CDT 03/19/2021 11:29 AM CDT Yosi Bustamante MD LAB - CHEMISTRY ORD ERABLES Performing Organization Address City/State/[facility] Co de Phone Number [facility] [address] [place] [address], [facility] [phone] * PTH INTACT ([facility]) (03/19/2021 11:20 AM CDT) PTH Intact 53.9 8.0 - 77.0 pg/mL 03/19/2021 11:59 AM [facility] Blood BLOOD SPECIMEN / Unknown Lab Venipuncture / Unknown 03/19/2021 11:20 AM CDT 03/19/2021 11:29 AM CDT Yosi Bustamante MD LAB - CHEMISTRY ORD ERABLES Performing Organization Address City/[facility]/ZIP Co de Phone Number [facility] [address] [place] [address], [facility] [phone] * (ABNORMAL) TSH REFLEX FREE T4 (03/19/2021 11:20 AM CDT) TSH 139.797(H) 0.350 - 4.940 uIU/mL 03/19/2021 12:[address] [facility] Comment:Result obtained by yaa holliday. Blood BLOOD SPECIMEN / Unknown Lab Venipuncture / Unknown 03/19/2021 11:20 AM CDT 03/19/2021 11:29 AM CDT Yosi Bustamante MD LAB - CHEMISTRY ORD ERABLES Performing Organization Address City/[facility]/ZIP Co de Phone Number [facility] [address] [place] [address], [facility] [phone] documented in this encounter Visit Diagnoses Diagnosis Postoperative hypothyroidism- Primary Postsurgical hypothyroidism Thyroid cancer (HCC) Malignant neoplasm of thyroid gland Hypocalcemia Other hypoparathyroidism (HCC) documented in this encounter Care Teams Machine Staker Relationship Specialty Start Date End Date Taniya Grimes MD [address] [facility] 2L DIV OF [facility] [place] [address] PCP - General 07/01/20 05/10/22 Marylu Marie DO [address] [facility] 2[address] DIV [facility] [place] [address] Resident - PCP Student Resident 06/26/20 01/11/22 documented as of this encounter
--- OUTSIDE RECORDS SUMMARY | 2024-07-26 08:39 | XMS_ITS | Encounter Summary ---
Author Organization [facility] Address [address] [place] [address] Care Team Providers Care Cloth Hand Name Role Phone FrankMarylu DO Unavailable Taniya Grimes MD Primary Care Provider Reason for Referral * Radiology Services (Routine) - Closed Specialty Diagnoses / Procedures Referred By Contac t Referred To Contact Nuclear Medicine Diagnoses Thyroid cancer (HCC) Postoperative hypothyroidism Procedures NM THYROID WHOLE BODY SCAN Yosi Bustamante MD [address] [place] [address] [address] [place] [address] [facility] Medicine [address] [place] [phone] Referral ID Status Reason Start Date Expiration Date Visits Re quested Visits Authorized [id number] Closed 03/03/2021 03/03/2022 1 1 Reason for Visit * Radiology Services (Routine) - Closed Specialty Diagnoses / Procedures Referred By Contac t Referred To Contact Nuclear Medicine Diagnoses Thyroid cancer (HCC) Postoperative hypothyroidism Procedures NM THYROID WHOLE BODY SCAN Yosi Bustamante MD [facility] [address] [place] [address] [facility] [place] Nuclear Medicine [address] [place] [phone] Referral ID Status Reason Start Date Expiration Date Visits Re quested Visits Authorized [id number] Closed 03/03/2021 03/03/2022 1 1 Encounter Details Date Type Department Care Team (Latest Contact Info) Description 03/24/2021 12:30 PM CDT - 03/24/2021 11:59 PM CDT Hospital Encounter [facility] N[facility]IC[facility] [address] [place] [address] Yosi Bustamante MD [address] [facility] 2[address] [facility] [place] [address] Discharge Disposition: Home or Self Care Social [...] fluticasone propionate (FLONASE) 50 MCG/ACT nasal spray [place] 2 sprays into each nostril 16 g 09/06/2019 04/11/2021 gabapentin (NEURONTIN) 300 MG capsuleIndications:Prima ry osteoarthritis of left hip TAKE 1 CAPSULE BY MOUTH THREE TIMES A DAY 90 capsule 5 03/25/2021 10/08/2021 gabapentin (NEURONTIN) 300 MG capsuleIndications:Prima ry osteoarthritis of left hip TAKE 1 CAPSULE BY MOUTH THREE TIMES A DAY 90 capsule 5 09/11/2020 03/25/2021 [id number]-[id number]-RGX-C-H YAL PO Take 1 tablet by mouth 3 times daily 06/13/2023 levothyroxine (SYNTHROID) 112 MCG tabletIndications:Postop erative hypothyroidism Take 1 (one) tablet by mouth once daily 90 tablet 4 01/13/2021 10/08/2021 Misc Natural Products (NEURIVA PO) Take 2 capsules by mouth every morning 09/14/2022 [place]-3 Fatty Acids (FISH OIL) 1000 MG capsule [...] st Contact Info) Description 08/02/2024 2:20 PM MAINSPRING FORMER Appointment [facility] [address] [place] [address] 08/02/2024 3:00 PM MAINSPRING FORMER Office Visit [facility] - Hematology/Oncology [address] [place] [phone] Remi Beckett MD [address] [place] [phone] 08/18/2024 1:45 PM MAINSPRING FORMER Office Visit [facility] - ENT [address] [place] [phone] Neri Delgado MD [address] [place] [phone] 08/30/2024 2:20 PM MAINSPRING FORMER Appointment [facility] [address] [place] [address] documented as of this encounter Procedures Procedure [...] hypothyroidism documented in this encounter Care Teams Cloth Hand Relationship Specialty Start Date End Date Taniya Grimes MD [address] 2[address] DIV OF [facility] [place] [address] PCP - General 07/01/20 05/10/22 Marylu Marie DO [address] 2[address] DIV OF [facility] [place] [address] Resident - PCP Student Resident 06/26/20 01/11/22 documented as of this encounter
--- OUTSIDE RECORDS SUMMARY | 2024-07-26 08:39 | XMS_ITS | Encounter Summary ---
Author Organization [facility] Health Address [address] [place] [address] Care Team Providers Care Forensic Analyst Name Role Phone Marylu Marie DO Unavailable [phone] Taniya Grimes MD Primary Care Provider Encounter [...] Contact Info) Description 08/02/2024 2:20 PM SECURITY ASSURANCE ANALYST Appointment [facility] [address] [place] [address] 08/02/2024 3:00 PM SECURITY ASSURANCE ANALYST Office Visit [facility] - Hematology/Oncology [address] [place] [phone] Remi Beckett MD [address] [place] [phone] 08/18/2024 1:45 PM SECURITY ASSURANCE ANALYST Office Visit [facility] - ENT [address] [place] [phone] Neri Delgado MD [address] [place] [phone] 08/30/2024 2:20 PM SECURITY ASSURANCE ANALYST Appointment [facility] [address] [place] [address] documented as of this encounter Visit Diagnoses Not on filedocumented in this encounter Care Teams Forensic Analyst Relationship Specialty Start Date End Date Taniya Grimes MD [address] [place] [address] 2[place] [address] PCP - General 07/01/20 05/10/22 Marylu Marie DO [address] [place] [address] [address] [address] Resident - PCP Student Resident 06/26/20 01/11/22 documented as of this encounter
--- OUTSIDE RECORDS SUMMARY | 2024-07-26 08:39 | XMS_ITS | Encounter Summary ---
Author Organization [facility] Health Address [address] [place] [address] Care Team Providers Care Director Of Quantitative Research Name Role Phone Marylu Marie DO Unavailable Taniya Grimes MD Primary Care Provider Reason for Visit * Reason Comments Pain Knee LT KNEE Encounter Details Date Type Department Care Team (Latest Contact Info) Description 04/01/2021 11:30 AM CDT Office Visit [facility] - Orthopedics [address] [facility] [place] [address] Cesar [place] MD [address] [phone] Primary osteoarthritis of left hip (Primary Dx) [...] fluticasone propionate (FLONASE) 50 MCG/ACT nasal spray [place] 2 sprays into each nostril 16 g 0 ??? gabapentin (NEURONTIN) 300 MG capsule TAKE 1 CAPSULE BY MOUTH THREE TIMES A DAY 90 capsule 5 ??? SFIGFZ-QFOEXMRAR-ZQO-C-HYAL PO Take 1 tablet by mouth 3 times daily ??? levothyroxine (SYNTHROID) 112 MCG tablet Take 1 (one) tablet by mouth once daily 90 tablet 4 ??? Misc Natural Products (NEURIVA PO) Take 2 capsules by mouth every morning ??? [place]-3 Fatty Acids (FISH OIL) 1000 MG capsule [...] Alive ??? Depression Sister ??? Other Sister oxchilt ??? Arthritis Sister ??? Diabetes Sister ??? [...] no extension lag and she can flex [id number] degrees. There is no crepitus with range [...] st Contact Info) Description 08/02/2024 2:20 PM SECRETARY BOARD OF COMMISSIONERS Appointment [facility] [address] [place] [address] 08/02/2024 3:00 PM SECRETARY BOARD OF COMMISSIONERS Office Visit [facility] - Hematology/Oncology [address] [place] [phone] Remi Beckett MD [address] [place] [phone] 08/18/2024 1:45 PM SECRETARY BOARD OF COMMISSIONERS Office Visit [facility] - ENT [address] [place] [phone] Neri Delgado MD [address] [place] [phone] 08/30/2024 2:20 PM SECRETARY BOARD OF COMMISSIONERS Appointment [facility] [address] [place] [address] documented as of this encounter Visit Diagnoses Diagnosis Primary osteoarthritis of left hip- Primary Primary localized osteoarthrosis, pelvic region and thigh documented in this encounter Care Teams Director Of Quantitative Research Relationship Specialty Start Date End Date Taniya Grimes MD [address] 2[address] DIV [place] [address] PCP - General 07/01/20 05/10/22 Marylu Marie DO [address] 2[address] DIV [place] [address] Resident - PCP Student Resident 06/26/20 01/11/22 documented as of this encounter
--- OUTSIDE RECORDS SUMMARY | 2024-07-26 08:39 | XMS_ITS | Encounter Summary ---
Author Organization [facility] Health Address [address] [place] [address] Care Team Providers Care Skidder Driver Name Role Phone Marylu Marie DO Unavailable [phone] Taniya Grimes MD Primary Care Provider Encounter Details Date Type Department Care Team (Latest Contact Info) Description 03/21/2021 10:13 AM CDT - 03/21/2021 11:59 PM CDT Hospital Encounter [facility] [address] [place] [phone] Discharge Disposition: Home or Self Care Social [...] fluticasone propionate (FLONASE) 50 MCG/ACT nasal spray [place] 2 sprays into each nostril 16 g 09/06/2019 04/11/2021 gabapentin (NEURONTIN) 300 MG capsuleIndications:Prima ry osteoarthritis of left hip TAKE 1 CAPSULE BY MOUTH THREE TIMES A DAY 90 capsule 5 09/11/2020 03/25/2021 [id number]-[id number]-PXU-C-H YAL PO Take 1 tablet by mouth 3 times daily 06/13/2023 levothyroxine (SYNTHROID) 112 MCG tabletIndications:Postop erative hypothyroidism Take 1 (one) tablet by mouth once daily 90 tablet 4 01/13/2021 10/08/2021 Misc Natural Products (NEURIVA PO) Take 2 capsules by mouth every morning 09/14/2022 [place]-3 Fatty Acids (FISH OIL) 1000 MG capsule [...] st Contact Info) Description 08/02/2024 2:20 PM SEAFOOD PROCESS WORKER Appointment [facility] [address] [place] [address] 08/02/2024 3:00 PM SEAFOOD PROCESS WORKER Office Visit [facility] - Hematology/Oncology [address] [place] [phone] Remi Beckett MD [address] [place] [phone] 08/18/2024 1:45 PM SEAFOOD PROCESS WORKER Office Visit [facility] - ENT [address] [place] [phone] Neri Delgado MD [address] [place] [address] 08/30/2024 2:20 PM SEAFOOD PROCESS WORKER Appointment [facility] [address] [place] [address] documented as of this encounter Procedures Procedure [...] 38.5 ng/mL 03/24/2021 5:08 PM CDT [facility] ([facility]) Comment: According to the National Academy of [...] AM CDT 03/21/2021 11:15 AM CDT Narrative [facility] ([facility]) - 03/24/2021 5:08 PM CDT Performed at: ??01 - [facility] [address] ??[id number] Photographic Reproduction Technician: Oral Melendez PhD, Phone: ??[phone] Yosi Bustamante MD LAB - CHEMISTRY ORD ERABLES [facility] ([facility]) [address] [place] [address], [facility] * THYROGLOBULIN REFLEX PROFILE (03/21/2021 10:47 AM CDT) [facility] Thyroglobulin Antibody <1.0 0.0 - 0.9 IU/mL 03/24/2021 5:08 PM CDT [facility] ([facility]) Comment:Thyroglobulin Antibo dy measured by [facility] [place] [facility] Blood BLOOD SPECIMEN / Unknown Lab Venipuncture / Unknown 03/21/2021 10:47 AM CDT 03/21/2021 11:15 AM CDT Narrative [facility] ([facility]) - 03/24/2021 5:08 PM CDT Performed at: ??01 - [facility] [address] [place], [place] ??[id number] Photographic Reproduction Technician: Oral Melendez PhD, Phone: ??[phone] Yosi Bustamante MD LAB - CHEMISTRY ORD ERABLES [facility] ([facility]) [address] [place] [address], [facility] * VITAMIN D 25-HYDROXY (03/21/2021 10:47 AM CDT) [facility] Vitamin D, 25 Hydroxy 46.0 30.0 - 80.0 ng/mL 03/21/2021 12:09 PM CDT [facility] Comment: The recommendations for 25-Hydroxy [...] - CHEMISTRY ORD ERABLES Performing Organization Address [facility] Co de Phone Number [address] [address], [place] [phone] * PTH INTACT W/O CALCIUM (03/21/2021 10:47 AM CDT) Pathologist [facility] PTH Intact 40.5 8.0 - 77.0 pg/mL 03/21/2021 11:54 AM CDT [facility] Blood BLOOD SPECIMEN / Unknown Lab Venipuncture / Unknown 03/21/2021 10:47 AM CDT 03/21/2021 11:25 AM CDT Yosi Bustamante MD LAB - CHEMISTRY ORD ERABLES Performing Organization Address [facility] de Phone Number [address] [address], [place] [phone] * (ABNORMAL) RENAL FUNCTION PANEL (03/21/2021 10:47 AM CDT) BUN 8 7 - 26 mg/dL 03/21/2021 11:52 AM [facility] Creatinine 0.73 0.56 - 0.96 mg/dL 03/21/2021 11:52 AM T [facility] Sodium 141 136 - 145 mmol/L 03/21/2021 11:52 AM [facility] Potassium 4.0 3.5 - 4.5 mmol/L 03/21/2021 11:52 AM [facility] Chloride 106 98 - 107 mmol/L 03/21/2021 11:52 AM CDT [facility] CO2 23 22 - 29 mmol/L 03/21/2021 11:52 AM [facility] Glucose 88 70 - 115 mg/dL 03/21/2021 11:52 AM [facility] Albumin 3.6 3.4 - 5.0 g/dL 03/21/2021 11:52 AM [facility] Calcium 7.8(L) 8.4 - 10.2 mg/dL 03/21/2021 11:52 AM [facility] Phosphorus 4.4 2.9 - 5.1 mg/dL 03/21/2021 11:52 AM [facility] Anion Gap 16 8 - 18 03/21/2021 11:52 AM [facility] BUN/Creatinine Ratio 11 7 - 23 03/21/2021 11:52 AM [facility] Osmolality Calculated 290 270 - 300 mOsm/kg 03/21/2021 11:52 AM [facility] eGFR by CKD-EPI 88(L) >=90 mL/min/1.7 3 m2 03/21/2021 11:52 AM [facility] Blood BLOOD SPECIMEN / Unknown Lab Venipuncture / Unknown 03/21/2021 10:47 AM CDT 03/21/2021 11:25 AM CDT Yosi Bustamante MD LAB - CHEMISTRY ORD ERABLES Performing Organization Address City/[facility]/ZIP Co de Phone Number [address] [address], [facility] [phone] * PTH INTACT ([facility]) (03/21/2021 10:47 AM CDT) PTH Intact 42.1 8.0 - 77.0 pg/mL 03/21/2021 11:55 AM CDT [facility] Blood BLOOD SPECIMEN / Unknown Lab Venipuncture / Unknown 03/21/2021 10:47 AM CDT 03/21/2021 11:25 AM CDT Yosi Bustamante MD LAB - CHEMISTRY ORD ERABLES [address] [place] [address], [facility] [phone] documented in this encounter Visit Diagnoses Diagnosis Postoperative hypothyroidism- Primary Postsurgical hypothyroidism Thyroid cancer (HCC) Malignant neoplasm of thyroid gland Hypocalcemia Other hypoparathyroidism (HCC) documented in this encounter Care Teams Skidder Driver Relationship Specialty Start Date End Date Taniya Grimes MD [address] OF [facility] [place] [address] PCP - General 07/01/20 05/10/22 Marylu Marie DO [address] [place] [address] Resident - PCP Student Resident 06/26/20 01/11/22 documented as of this encounter
--- OUTSIDE RECORDS SUMMARY | 2024-07-26 08:40 | XMS_ITS | Encounter Summary ---
Author Organization [facility] Health Address [address] [facility] [place] [address] Care Team Providers Care Induction Coordination Engineer Name Role Phone Marylu Marie DO Unavailable Taniya Grimes MD Primary Care Provider Encounter Details Date Type Department Care Team (Latest Contact Info) Description 02/14/2021 12:05 PM CDT - 02/14/2021 11:59 PM CDT Hospital Encounter [facility] OP DRAW STATION [address] [place] [address] Cesar Brooks MD [address] [facility] [address] [place] [address] Discharge Disposition: Home or Self Care Social [...] fluticasone propionate (FLONASE) 50 MCG/ACT nasal spray [place] 2 sprays into each nostril 16 g 09/06/2019 04/11/2021 gabapentin (NEURONTIN) 300 MG capsuleIndications:Prima ry osteoarthritis of left hip TAKE 1 CAPSULE BY MOUTH THREE TIMES A DAY 90 capsule 5 09/11/2020 03/25/2021 JWKIXY-[id number]-KZW-C-H YAL PO Take 1 tablet by mouth 3 times daily 06/13/2023 levothyroxine (SYNTHROID) 112 MCG tabletIndications:Postop erative hypothyroidism Take 1 (one) tablet by mouth once daily 90 tablet 4 01/13/2021 10/08/2021 Misc Natural Products (NEURIVA PO) Take 2 capsules by mouth every morning 09/14/2022 [place]-3 Fatty Acids (FISH OIL) 1000 MG capsule [...] st Contact Info) Description 08/02/2024 2:20 PM OUTREACH CONSULTANT Appointment [facility] [address] [place] [address] 08/02/2024 3:00 PM OUTREACH CONSULTANT Office Visit [facility] - Hematology/Oncology [address] [place] [phone] Remi Beckett MD [address] [place] [phone] 08/18/2024 1:45 PM OUTREACH CONSULTANT Office Visit [facility] - ENT [address] [place] [phone] Neri Delgado MD [address] [place] [address] 08/30/2024 2:20 PM OUTREACH CONSULTANT Appointment [facility] [address] [place] [address] documented as of this encounter Procedures Procedure [...] - 1.5 ng/dL 02/14/2021 2:03 PM CDT [facility] Blood BLOOD SPECIMEN / Unknown Lab Venipuncture / Unknown 02/14/2021 12:30 PM CDT 02/14/2021 12:41 PM CDT Yosi Bustamante MD LAB - CHEMISTRY ORD ERABLES [address] [address], [place] [phone] * PTH INTACT ([facility]) (02/14/2021 12:30 PM CDT) PTH Intact 37.8 8.0 - 77.0 pg/mL 02/14/2021 1:16 PM CDT [facility] Blood BLOOD SPECIMEN / Unknown Lab Venipuncture / Unknown 02/14/2021 12:30 PM CDT 02/14/2021 12:41 PM CDT Yosi Bustamante MD LAB - CHEMISTRY ORD ERABLES [address] [address], [place] [phone] * (ABNORMAL) TSH REFLEX FREE T4 (02/14/2021 12:30 PM CDT) TSH 0.028(L) 0.350 - 4.940 uIU/mL 02/14/2021 1:31 PM CDT [facility] Blood BLOOD SPECIMEN / Unknown Lab Venipuncture / Unknown 02/14/2021 12:30 PM CDT 02/14/2021 12:41 PM CDT Yosi Bustamante MD LAB - CHEMISTRY ORD ERABLES [facility] [address] [place] [address], [place] [phone] documented in this encounter Visit Diagnoses Diagnosis Postoperative hypothyroidism- Primary Postsurgical hypothyroidism Thyroid cancer (HCC) Malignant neoplasm of thyroid gland Hypocalcemia Other hypoparathyroidism (HCC) documented in this encounter Care Teams Induction Coordination Engineer Relationship Specialty Start Date End Date Taniya Grimes MD [address] [facility] [address] DIV OF [facility] [place] [address] PCP - General 07/01/20 05/10/22 Marylu Marie DO [address] [facility] 2L [place] [address] Resident - PCP Student Resident 06/26/20 01/11/22 documented as of this encounter
--- OUTSIDE RECORDS SUMMARY | 2024-07-26 08:40 | XMS_ITS | Encounter Summary ---
Author Organization [facility] Health Address [address] [facility] [place] [address] Care Team Providers Care Regional Sales Trainer Name Role Phone Marylu Marie DO Unavailable [phone] Taniya Grimes MD Primary Care Provider [phone] Reason for Visit * Reason Onset Date Comments Question 02/07/2021 Encounter Details Date Type Department Care Team (Late st Contact Info) Description 02/07/2021 Telephone [facility] End[facility]ology, Diabetes and Metabolism [address] [place] [address], [facility] [place] [phone] Yosi Bustamante MD [address] [place] [address] of [place], [place] [phone] Question Social History Tobacco Use Types Packs/Day [...] st Contact Info) Description 08/02/2024 2:20 PM DANCE ENTERTAINER Appointment [facility] [address] [place] [address] 08/02/2024 3:00 PM DANCE ENTERTAINER Office Visit [facility] - Hematology/Oncology [address] [place] [address] [phone] Remi Beckett MD [address] [place] [phone] 08/18/2024 1:45 PM DANCE ENTERTAINER Office Visit [facility] - ENT [address] [place] [phone] Neri Delgado MD [address] [place] [address] 08/30/2024 2:20 PM DANCE ENTERTAINER Appointment [facility] [address] [place] [address] documented as of this encounter Visit Diagnoses Not on filedocumented in this encounter Care Teams Regional Sales Trainer Relationship Specialty Start Date End Date Taniya Grimes MD [address] [place] [address] OF [facility] [place] [address] PCP - General 07/01/20 05/10/22 Marylu Marie DO [address] OF [facility] [place] [address] Resident - PCP Student Resident 06/26/20 01/11/22 documented as of this encounter
--- OUTSIDE RECORDS SUMMARY | 2024-07-26 08:40 | XMS_ITS | Encounter Summary ---
Author Organization [facility] Health Address [address] [facility] [place] [address] Care Team Providers Care Lead Software Tester Name Role Phone Marylu Marie DO Unavailable Taniya Grimes MD Primary Care Provider Reason for Visit * Reason Onset Date Comments Medication Issue 02/11/2021 Encounter Details Date Type Department Care Team (Late st Contact Info) Description 02/11/2021 Telephone [facility] Endocrinology, Diabetes and Metabolism [address] [place] [address], [facility] [place] [phone] Yosi Bustamante MD [address] [place] [address] [place] [address] Medication Issue Social History Tobacco Use Types [...] Contact Info) Description 08/02/2024 2:20 PM HAND III CUTTER Appointment [facility] [address] [place] [address] 08/02/2024 3:00 PM HAND III CUTTER Office Visit [facility] - Hematology/Oncology [address] [place] [address] [phone] Remi Beckett MD [address] [place] [phone] 08/18/2024 1:45 PM HAND III CUTTER Office Visit [facility] - ENT [address] [place] [phone] Neri Delgado MD [address] [place] [address] 08/30/2024 2:20 PM HAND III CUTTER Appointment [facility] [address] [place] [address], [place] [address] documented as of this encounter Visit Diagnoses Not on filedocumented in this encounter Care Teams Lead Software Tester Relationship Specialty Start Date End Date Taniya Grimes MD [address] [facility] DIV OF [facility] [place] [address] PCP - General 07/01/20 05/10/22 Marylu Marie DO [address] DIV OF [facility] [place] [address] Resident - PCP Student Resident 06/26/20 01/11/22 documented as of this encounter
--- OUTSIDE RECORDS SUMMARY | 2024-07-26 08:40 | XMS_ITS | Encounter Summary ---
Author Organization [facility] Address [address] [facility] [place] [address] Care Team Providers Care Ocean Export Account Manager Name Role Phone FrankMarylu DO Unavailable [phone] Taniya Grimes MD Primary Care Provider Reason for Referral * Radiology Services (Routine) - Closed Specialty Diagnoses / Procedures Referred By Contac t Referred To Contact Nuclear Medicine Diagnoses Thyroid cancer (HCC) Postoperative hypothyroidism Procedures NM THYROID WHOLE BODY SCAN Yosi Bustamante MD [address] [place] [address] [address] [place] [address] [facility] [address] [place] [phone] Referral ID Status Reason Start Date Expiration Date Visits Re quested Visits Authorized [id number] Closed 03/03/2021 03/03/2022 1 1 * Radiology Services (Routine) - Closed Specialty Diagnoses / Procedures Referred By Contac t Referred To Contact Nuclear Medicine Diagnoses Thyroid cancer (HCC) Postoperative hypothyroidism Procedures NM THYROID THERAPY Yosi Bustamante MD [address] [place] [address] [address] [place] [address] [facility] Nuclear Medicine [address] [place] [phone] Referral ID Status Reason Start Date Expiration Date Visits Re quested Visits Authorized [id number] Closed 03/03/2021 03/03/2022 1 1 Encounter Details Date Type Department Care Team ([facility] Contact Info) Description 03/03/2021 Orders Only [facility]ology, Diabetes and Metabolism [address] [place] [address], [place] [address] Yosi Bustamante MD [address] [place] [address] 2L [place] [address] Thyroid cancer (HCC) ; Postoperative hypothyroidism Social [...] Department Care Team (Late Contact Info) Description 08/02/2024 2:20 PM SEA CAPTAIN Appointment [facility] [address] [place] [address] 08/02/2024 3:00 PM SEA CAPTAIN Office Visit [facility] - Hematology/Oncology [address] [place] [phone] [place] [address] [place] [phone] 08/18/2024 1:45 PM SEA CAPTAIN Office Visit [facility] - ENT [address] [place] [phone] Neri Delgado MD [address] [place] [address] 08/30/2024 2:20 PM SEA CAPTAIN Appointment [facility] [address] [place] [address] documented as of this encounter Results * [...] Siu ?? on 03/19/2021 5:28 PM . IDr. DISHA [...] on03/19/2021 6:06 PM . Yosi Bustamante MD MD ORDERABLES documented in this encounter Visit Diagnoses Diagnosis Thyroid cancer (HCC)- Primary Malignant neoplasm of thyroid gland Postoperative hypothyroidism Postsurgical hypothyroidism Thyroid cancer (HCC) Malignant neoplasm of thyroid gland Postoperative hypothyroidism Postsurgical hypothyroidism Thyroid cancer (HCC) Malignant neoplasm of thyroid gland Postoperative hypothyroidism Postsurgical hypothyroidism documented in this encounter Care Teams Ocean Export Account Manager Relationship Specialty Start Date End Date Taniya Grimes MD [address] 2[address] DIV OF [facility] [place] [address] PCP - General 07/01/20 05/10/22 Marylu Marie DO [address] DIV OF [facility] [place] [address] Resident - PCP Student Resident 06/26/20 01/11/22 documented as of this encounter
--- OUTSIDE RECORDS SUMMARY | 2024-07-26 08:40 | XMS_ITS | Encounter Summary ---
Author Organization [facility] Health Address [address] [place] [address] Care Team Providers Care Manager Business Information Name Role Phone Marylu Marie DO Unavailable Taniya Grimes MD Primary Care Provider [phone] Encounter Details Date Type Department Care Team (Latest Contact Info) Description 03/17/2021 2:00 PM CDT Clinical Support [facility], Diabetes and Metabolism [address] [place] [phone] Postoperative hypothyroidism Social History Tobacco Use Types [...] and dosage compared to prescription in chart. [facility]- [id number] LOT - [id number] - 08/28 Patient supplied own medication. 1.2 [...] st Contact Info) Description 08/02/2024 2:20 PM EXECUTIVE MARKETING ASSISTANT Appointment [facility] [address] [place] [address] 08/02/2024 3:00 PM EXECUTIVE MARKETING ASSISTANT Office Visit [facility] Group - Hematology/Oncology [address] [place] [phone] Remi Beckett MD [address] [place] [phone] 08/18/2024 1:45 PM EXECUTIVE MARKETING ASSISTANT Office Visit [facility] - ENT [address] [place] [phone] Neri Delgado MD [facility]5 [place] [address] 08/30/2024 2:20 PM EXECUTIVE MARKETING ASSISTANT Appointment [facility] [address] [place] [address] documented as of this encounter Visit Diagnoses [...] Dorsogluteal documented in this encounter Care Teams Manager Business Information Relationship Specialty Start Date End Date Taniya Grimes MD [address] [place] [address] 2L DIV OF [facility] [place] [address] PCP - General 07/01/20 05/10/22 Marylu Marie DO [address] [place] [address] 2[address] DIV OF [facility] [address] Resident - PCP Student Resident 06/26/20 01/11/22 documented as of this encounter
--- OUTSIDE RECORDS SUMMARY | 2024-07-26 08:40 | XMS_ITS | Encounter Summary ---
Author Organization [facility] Health Address [address] [facility] [place] [address] Care Team Providers Care Production Control Analyst Name Role Phone Marylu Marie DO Unavailable Taniya Grimes MD Primary Care Provider Encounter Details Date Type Department Care Team (Late st Contact Info) Description 03/10/2021 Orders Only [facility] End[facility]inology, Diabetes and Metabolism [address] [place] [address], [place] [phone] Yosi Bustamante MD [address] [place] [address] Div of Endocrinology [place], [place] [phone] Thyroid cancer (HCC); Postoperative hypothyroidism Social History [...] st Contact Info) Description 08/02/2024 2:20 PM PLUNGER MACHINE OPERATOR Appointment [facility] [place] [address] 08/02/2024 3:00 PM PLUNGER MACHINE OPERATOR Office Visit [facility] - Hematology/Oncology [address] [place] [phone] Remi Beckett MD [address] [place] [phone] 08/18/2024 1:45 PM PLUNGER MACHINE OPERATOR Office Visit [facility] - ENT [address] [place] [phone] Neri Delgado MD [address] [place] [address] 08/30/2024 2:20 PM PLUNGER MACHINE OPERATOR Appointment [facility] [address] [place] [address] documented as of this encounter Visit Diagnoses Diagnosis Thyroid cancer (HCC) Malignant neoplasm of thyroid gland Postoperative hypothyroidism Postsurgical hypothyroidism documented in this encounter Care Teams Production Control Analyst Relationship Specialty Start Date End Date Taniya Grimes MD [address] [place] [address] 2[address] DIV OF [facility] [place] [address] PCP - General 07/01/20 05/10/22 Marylu Marie DO [address] [place] [address] 2L DIV OF [facility] [place] [address] Resident - PCP Student Resident 06/26/20 01/11/22 documented as of this encounter
--- OUTSIDE RECORDS SUMMARY | 2024-07-26 08:40 | XMS_ITS | Encounter Summary ---
Author Organization [facility] Health Address [address] [place] [address] Care Team Providers Care Hook And Eye Sewing Machine Operator Name Role Phone Marylu Marie DO Unavailable [phone] Taniya Grimes MD Primary Care Provider Encounter [...] st Contact Info) Description 08/02/2024 2:20 PM REEL OPERATOR Appointment [facility] [address] [place] [address] 08/02/2024 3:00 PM REEL OPERATOR Office Visit [facility] - Hematology/Oncology [address] [place] [phone] Remi Beckett MD [address] [place] [phone] 08/18/2024 1:45 PM REEL OPERATOR Office Visit [facility] - ENT [address] [place] [phone] Neri Delgado MD [address] [place] [address] 08/30/2024 2:20 PM REEL OPERATOR Appointment [facility] [address] [place] [address] documented as of this encounter Visit Diagnoses Not on filedocumented in this encounter Care Teams Hook And Eye Sewing Machine Operator Relationship Specialty Start Date End Date Taniya Grimes MD [address] [place] [address] [address] [address] PCP - General 07/01/20 05/10/22 Marylu Marie DO [address] [place] [address] [address] [address] Resident - PCP Student Resident 06/26/20 01/11/22 documented as of this encounter
--- OUTSIDE RECORDS SUMMARY | 2024-07-26 08:40 | XMS_ITS | Encounter Summary ---
Author Organization [facility] Health Address [address] [facility] [place] [address] Care Team Providers Care Clinic Nurse Name Role Phone Marylu Marie DO Unavailable [phone] Taniya Grimes MD Primary Care Provider Encounter Details Date Type Department Care Team (Latest Contact Info) Description 03/18/2021 2:00 PM CDT Clinical Support [facility], Diabetes and Metabolism [address] [place] [phone] Postoperative hypothyroidism Social History Tobacco Use Types [...] and dosage compared to prescription in chart. [facility]- [id number] LOT - [id number] EXP - 08/2023 Patient supplied own medication. [...] st Contact Info) Description 08/02/2024 2:20 PM SAW MAKER Appointment [facility] [address] [place] [address] 08/02/2024 3:00 PM SAW MAKER Office Visit [facility] - Hematology/Oncology [address] [place] [phone] Remi Beckett MD [address] [place] [address] 08/18/2024 1:45 PM SAW MAKER Office Visit [facility] - ENT [address] [place] [phone] Neri Delgado MD [address] [place] [address] 08/30/2024 2:20 PM SAW MAKER Appointment [facility] [address] [place] [address] documented as of this encounter Visit Diagnoses [...] Dorsogluteal documented in this encounter Care Teams Clinic Nurse Relationship Specialty Start Date End Date Taniya Grimes MD [address] [place] [address] 2L DIV OF [facility] [place] [address] PCP - General 07/01/20 05/10/22 Marylu Marie DO [address] [place] [address] 2L DIV [facility] [place] [address] Resident - PCP Student Resident 06/26/20 01/11/22 documented as of this encounter
--- OUTSIDE RECORDS SUMMARY | 2024-07-26 08:40 | XMS_ITS | Encounter Summary ---
Author Organization [facility] Health Address [address] [place] [address] Care Team Providers Care Participant Administrator Name Role Phone Marylu Marie DO Unavailable [phone] Taniya Grimes MD Primary Care Provider Encounter Details Date Type Department Care Team (Latest Contact Info) Description 02/14/2021 12:05 PM CDT Hospital Encounter [facility] [address] [place] [address] Cesar Brooks MD [address] [facility] [address] [place], [place] [phone] Discharge Disposition: Home or Self Care Social [...] fluticasone propionate (FLONASE) 50 MCG/ACT nasal spray [place] 2 sprays into each nostril 16 g 09/06/2019 04/11/2021 gabapentin (NEURONTIN) 300 MG capsuleIndications:Prima ry osteoarthritis of left hip TAKE 1 CAPSULE BY MOUTH THREE TIMES A DAY 90 capsule 5 09/11/2020 03/25/2021 [id number]-H YAL PO Take 1 tablet by mouth 3 times daily 06/13/2023 levothyroxine (SYNTHROID) 112 MCG tabletIndications:Postop erative hypothyroidism Take 1 (one) tablet by mouth once daily 90 tablet 4 01/13/2021 10/08/2021 Misc Natural Products (NEURIVA PO) Take 2 capsules by mouth every morning 09/14/2022 [place]-3 Fatty Acids (FISH OIL) 1000 MG capsule [...] st Contact Info) Description 08/02/2024 2:20 PM LEGAL EDITOR Appointment [facility] [address] [place] [address] 08/02/2024 3:00 PM LEGAL EDITOR Office Visit [facility] Group - Hematology/Oncology [address] [place] [phone] Remi Beckett MD [address] [place] [phone] 08/18/2024 1:45 PM LEGAL EDITOR Office Visit [facility] - ENT [address] [place] [phone] Neri Delgado MD [address] [place] [address] 08/30/2024 2:20 PM LEGAL EDITOR Appointment [facility] [address] [place] [address] documented as of this encounter Procedures Procedure [...] laterality documented in this encounter Care Teams Participant Administrator Relationship Specialty Start Date End Date Taniya Grimes MD [address] 2L DIV OF [facility] [address] PCP - General 07/01/20 05/10/22 Marylu Marie DO [address] 2L DIV OF [facility] [address] Resident - PCP Student Resident 06/26/20 01/11/22 documented as of this encounter
--- OUTSIDE RECORDS SUMMARY | 2024-07-26 08:40 | XMS_ITS | Encounter Summary ---
Author Organization [facility] Health Address [address] [facility] [place] [address] Care Team Providers Care Pesticide Control Inspector Name Role Phone Marylu Marie DO Unavailable Taniya Grimes MD Primary Care Provider [phone] Encounter Details Date Type Department Care Team (Late st Contact Info) Description 03/05/2021 Orders Only [facility], Diabetes and Metabolism [address] [place] [address], [place] [phone] Yosi Bustamante MD [address] [place] [address] Div of Endocrinology [place], [place] [phone] Thyroid cancer (HCC); Postoperative hypothyroidism Social History [...] st Contact Info) Description 08/02/2024 2:20 PM RN HOME CARE Appointment [facility] [place] [address] 08/02/2024 3:00 PM RN HOME CARE Office Visit [facility] - Hematology/Oncology [address] [place] [phone] Remi Beckett MD [address] [place] [phone] 08/18/2024 1:45 PM RN HOME CARE Office Visit [facility] - ENT [address] [place] [phone] Neri Delgado MD [address] [place] [address] 08/30/2024 2:20 PM RN HOME CARE Appointment [facility] [address] [place] [phone] documented as of this encounter Visit Diagnoses Diagnosis Thyroid cancer (HCC) Malignant neoplasm of thyroid gland Postoperative hypothyroidism Postsurgical hypothyroidism documented in this encounter Care Teams Pesticide Control Inspector Relationship Specialty Start Date End Date Taniya Grimes MD [address] [place] [address] 2L DIV OF [facility] [place] [address] PCP - General 07/01/20 05/10/22 Marylu Marie DO [address] [place] [address] 2L DIV OF [facility] [place] [address] Resident - PCP Student Resident 06/26/20 01/11/22 documented as of this encounter
--- OUTSIDE RECORDS SUMMARY | 2024-07-26 08:40 | XMS_ITS | Encounter Summary ---
Author Organization [facility] Health Address [address] [facility] [place] [address] Care Team Providers Care Leg Assembler Name Role Phone Marylu Marie DO Unavailable Taniya Grimes MD Primary Care Provider [phone] Encounter Details Date Type Department Care Team (Latest Contact Info) Description 03/07/2021 Orders Only [facility], Diabetes and Metabolism [address] [place] [address], [place] [phone] Yosi Bustamante MD [address] [place] [address] of Endocrinology [place], [place] [phone] Postoperative hypothyroidism; Thyroid cancer (HCC); Hypocalcemia; Other [...] st Contact Info) Description 08/02/2024 2:20 PM LINE HELPER Appointment [facility] [address] [place] [address] 08/02/2024 3:00 PM LINE HELPER Office Visit [facility] Group - Hematology/Oncology [address] [place] [address] [phone] Remi Beckett MD [address] [place] [phone] 08/18/2024 1:45 PM LINE HELPER Office Visit [facility] ENT [address] [place] [phone] Neri Delgado MD [address] [place] [address] 08/30/2024 2:20 PM LINE HELPER Appointment [facility] [address] [place] [address] documented as of this encounter Visit Diagnoses Diagnosis Postoperative hypothyroidism Postsurgical hypothyroidism Thyroid cancer (HCC) Malignant neoplasm of thyroid gland Hypocalcemia Other hypoparathyroidism (HCC) documented in this encounter Care Teams Leg Assembler Relationship Specialty Start Date End Date Taniya Grimes MD [address] [place] [address] 2L DIV OF [facility] [place] [address] PCP - General 07/01/20 05/10/22 Marylu Marie DO [address] [place] [address] [address] [address] Resident - PCP Student Resident 06/26/20 01/11/22 documented as of this encounter
--- OUTSIDE RECORDS SUMMARY | 2024-07-26 08:40 | XMS_ITS | Encounter Summary ---
Author Organization [facility] Health Address [address] [facility] [place] [address] Care Team Providers Care Telephone Clerk Telegraph Office Name Role Phone Marylu Marie DO Unavailable Taniya Grimes MD Primary Care Provider [phone] Reason for Visit * Reason Onset Date Comments MEDICATION REFILL 02/04/2021 Encounter Details Date Type Department Care Team (Late st Contact Info) Description 02/04/2021 Refill [facility], Diabetes and Metabolism [address] [place] [address], [facility] [place] [phone] Yosi Bustamante MD [address] [place] [address] [place] [address] MEDICATION REFILL Social History Tobacco Use Types [...] RN - 02/04/2021 10:28 AM CDT [facility] regarding getting Thyrogen filled. Pt's insurance [...] Contact Info) Description 08/02/2024 2:20 PM SAW HANDLE ASSEMBLER Appointment [facility] [address] [place] [address] 08/02/2024 3:00 PM SAW HANDLE ASSEMBLER Office Visit [facility] - Hematology/Oncology [address] [place] [phone] Remi Beckett MD [address] [place] [phone] 08/18/2024 1:45 PM SAW HANDLE ASSEMBLER Office Visit [facility] [address] [place] [phone] Neri Delgado MD [address] [place] [address] 08/30/2024 2:20 PM SAW HANDLE ASSEMBLER Appointment [facility] [address] [place] [phone] documented as of this encounter Visit Diagnoses Diagnosis Thyroid cancer (HCC) Malignant neoplasm of thyroid gland documented in this encounter Care Teams Telephone Clerk Telegraph Office Relationship Specialty Start Date End Date aTniya Grimes MD [address] 2L DIV OF GEN [place] [address] PCP - General 07/01/20 05/10/22 Marylu Marie DO [address] 2L DIV OF [facility] [place] [address] Resident - PCP Student Resident 06/26/20 01/11/22 documented as of this encounter
--- OUTSIDE RECORDS SUMMARY | 2024-07-26 08:40 | XMS_ITS | Encounter Summary ---
Author Organization [facility] Health Address [address] [facility] [place] [address] Care Team Providers Care Petroleum Laboratory Technician Name Role Phone Marylu Marie DO Unavailable [phone] Taniya Grimes MD Primary Care Provider Encounter Details Date Type Department Care Team (Latest Contact Info) Description 03/17/2021 10:15 AM CDT - 03/17/2021 11:59 PM CDT Hospital Encounter [facility] OP DRAW STATION [address] [place] [phone] Discharge Disposition: Home or Self Care Social [...] (FLONASE) 50 MCG/ACT nasal spray [place] 2 sprays into each nostril 16 g 09/06/2019 04/11/2021 gabapentin (NEURONTIN) 300 MG capsuleIndications:Prima ry osteoarthritis of left hip TAKE 1 CAPSULE BY MOUTH THREE TIMES A DAY 90 capsule 5 09/11/2020 03/25/2021 [id number] YAL PO Take 1 tablet by mouth 3 times daily 06/13/2023 levothyroxine (SYNTHROID) 112 MCG tabletIndications:Postop erative hypothyroidism Take 1 (one) tablet by mouth once daily 90 tablet 4 01/13/2021 10/08/2021 Misc Natural Products (NEURIVA PO) Take 2 capsules by mouth every morning 09/14/2022 [place]-3 Fatty Acids (FISH OIL) 1000 MG capsule [...] st Contact Info) Description 08/02/2024 2:20 PM ASSET AVAILABILITY LEADER Appointment [facility] [address] [place] [address] 08/02/2024 3:00 PM ASSET AVAILABILITY LEADER Office Visit [facility] - Hematology/Oncology [address] [place] [phone] Remi Beckett MD [address] [place] [phone] 08/18/2024 1:45 PM ASSET AVAILABILITY LEADER Office Visit [facility] - ENT [address] [place] [phone] Neri Delgado MD [address] [place] [address] 08/30/2024 2:20 PM ASSET AVAILABILITY LEADER Appointment [facility] [address] [place] [address] documented as of this encounter Procedures Procedure [...] 38.5 ng/mL 03/18/2021 5:08 PM CDT [facility] ([facility]) Comment: According to the National Academy of [...] 10:32 AM CDT 03/17/2021 10:58 AM CDT [facility] ([facility]) - 03/18/2021 5:08 PM CDT Performed at: ??01 - [facility] [address] ??[id number] [employer]: Oral Melendez PhD, Phone: ??[phone] Yosi Bustamante MD LAB - CHEMISTRY ORD ERABLES [facility] ([facility]) [address] [place] [address] * T4 FREE (03/17/2021 10:32 AM CDT) [facility] T4 Free 1.5 0.7 - 1.5 ng/dL 03/17/2021 12:38 PM CDT [facility] Blood BLOOD SPECIMEN / Unknown Lab Venipuncture / Unknown 03/17/2021 10:32 AM CDT 03/17/2021 11:06 AM CDT Yosi Bustamante MD LAB - CHEMISTRY SHANDRA [employer] [facility] [address] [address], [facility] [phone] * THYROGLOBULIN REFLEX PROFILE (03/17/2021 10:32 AM CDT) [facility] Thyroglobulin Antibody <1.0 0.0 - 0.9 IU/mL 03/18/2021 5:08 PM CDT [facility] ([facility]) Comment:Thyroglobulin Antibo dy measured by Lisbet Thida Methodology Blood BLOOD SPECIMEN / Unknown Lab Venipuncture / Unknown 03/17/2021 10:32 AM CDT 03/17/2021 10:58 AM CDT Narrative [facility] ([facility]) - 03/18/2021 5:08 PM CDT Performed at: ??01 - [facility] [address] [place], [place] ??[id number] [employer]: Oral Melendez PhD, Phone: ??[phone] Yosi Bustamante MD LAB - CHEMISTRY SHANDRA BURDEN [facility] ([facility]) [address] [place] [address] * VITAMIN D 25-HYDROXY (03/17/2021 10:32 AM CDT) [facility] Vitamin D, 25 Hydroxy 52.0 30.0 - 80.0 ng/mL 03/17/2021 11:48 AM CDT [facility] Comment: The recommendations for 25-Hydroxy Vitamin [...] - CHEMISTRY ORD ERABLES Performing Organization Address [facility] Co de Phone Number [address] [address], [facility] [phone] * PTH INTACT W/O CALCIUM (03/17/2021 10:32 AM CDT) PTH Intact 45.1 8.0 - 77.0 pg/mL 03/17/2021 11:34 AM CDT [facility] Blood BLOOD SPECIMEN / Unknown Lab Venipuncture / Unknown 03/17/2021 10:32 AM CDT 03/17/2021 11:05 AM CDT Yosi Bustamante MD LAB - CHEMISTRY ORD ERABLES Performing Organization Address City/[facility]/ZIP Co de Phone Number [facility] [address] [place] [phone] [phone] * (ABNORMAL) RENAL FUNCTION PANEL (03/17/2021 10:32 AM CDT) BUN 13 7 - 26 mg/dL 03/17/2021 12:[address] [facility] Creatinine 0.82 0.56 - 0.96 mg/dL 03/17/2021 12:[address] [facility] Sodium 142 136 - 145 mmol/L 03/17/2021 12:[address] [facility] Potassium 4.6(H) 3.5 - 4.5 mmol/L 03/17/2021 12:[address] [facility] Chloride 105 98 - 107 mmol/L 03/17/2021 12:[address] [facility] CO2 23 22 - 29 mmol/L 03/17/2021 12:[address] [facility] Glucose 94 70 - 115 mg/dL 03/17/2021 12:[address] [facility] Albumin 4.0 3.4 - 5.0 g/dL 03/17/2021 12:[address] [facility] Calcium 8.6 8.4 - 10.2 mg/dL 03/17/2021 12:[address] [facility] Phosphorus 4.4 2.9 - 5.1 mg/dL 03/17/2021 12:[address] [facility] Anion Gap 19(H) 8 - 18 03/17/2021 12:[address] [facility] BUN/Creatinine Ratio 16 7 - 23 03/17/2021 12:[address] [facility] Osmolality Calculated 294 270 - 300 mOsm/kg 03/17/2021 12:[address] [facility] eGFR by CKD-EPI 77(L) >=90 mL/min/1.7 3 m2 03/17/2021 12:[address] [facility] Blood BLOOD SPECIMEN / Unknown Lab Venipuncture / Unknown 03/17/2021 10:32 AM CDT 03/17/2021 11:06 AM T Yosi Bustamante MD LAB - CHEMISTRY ORD ERABLES [facility] [address] [place] [address], [place] [phone] * (ABNORMAL) TSH REFLEX FREE T4 (03/17/2021 10:32 AM CDT) TSH <0.010(L) 0.350 - 4.940 uIU/mL 03/17/2021 11:48 AM CDT [facility] Blood BLOOD SPECIMEN / Unknown Lab Venipuncture / Unknown 03/17/2021 10:32 AM CDT 03/17/2021 11:06 AM CDT Yosi Bustamante MD LAB - CHEMISTRY ORD MATTBLES Performing Organization Address [facility]/ZIP Co de Phone Number [facility] [address] [place] [address], [facility] [phone] documented in this encounter Visit Diagnoses Diagnosis Postoperative hypothyroidism- Primary Postsurgical hypothyroidism Thyroid cancer (HCC) Malignant neoplasm of thyroid gland Hypocalcemia Other hypoparathyroidism (HCC) documented in this encounter Care Teams Petroleum Laboratory Technician Relationship Specialty Start Date End Date Taniya Grimes MD [address] 2L DIV OF [employer] [place] [place] [address] PCP - General 07/01/20 05/10/22 Marylu Marie DO [address] 2L DIV OF [employer] [place] [place] [address] Resident - PCP Student Resident 06/26/20 01/11/22 documented as of this encounter
--- OUTSIDE RECORDS SUMMARY | 2024-07-26 08:40 | XMS_ITS | Encounter Summary ---
Author Organization [facility] Health Address [address] [facility] [place] [address] Care Team Providers Care Acid Tank Cleaner Name Role Phone Marylu Marie DO Unavailable Taniya Grimes MD Primary Care Provider [phone] Encounter Details Date Type Department Care Team (Late st Contact Info) Description 03/04/2021 Orders Only [facility], Diabetes and Metabolism [address] [place] [address], [place] [phone] Yosi Bustamante MD [address] [place] [address] Div of Endocrinology [place], [place] [phone] Thyroid cancer (HCC) ; Postoperative hypothyroidism Social [...] st Contact Info) Description 08/02/2024 2:20 PM CASHIER ASSISTANT Appointment [facility] [address] [place] [address] 08/02/2024 3:00 PM CASHIER ASSISTANT Office Visit [facility] - Hematology/Oncology [address] [place] [phone] Remi Beckett MD [address] [place] [phone] 08/18/2024 1:45 PM CASHIER ASSISTANT Office Visit [facility] - ENT [address] [place] [phone] Neri Delgado MD [address] [place] [phone] 08/30/2024 2:20 PM CASHIER ASSISTANT Appointment [facility] [address] [place] [phone] documented as of this encounter Visit Diagnoses Diagnosis Thyroid cancer (HCC)- Primary Malignant neoplasm of thyroid gland Postoperative hypothyroidism Postsurgical hypothyroidism documented in this encounter Care Teams Acid Tank Cleaner Relationship Specialty Start Date End Date Taniya Grimes MD [address] [place] [address] 2L DIV OF [facility] [place] [address] PCP - General 07/01/20 05/10/22 Marylu Marie DO [address] [place] [address] 2L DIV OF [facility] [place] [address] Resident - PCP Student Resident 06/26/20 01/11/22 documented as of this encounter
--- OUTSIDE RECORDS SUMMARY | 2024-07-26 08:40 | XMS_ITS | Encounter Summary ---
Author Organization [facility] Health Address [address] [place] [address] Care Team Providers Care Optics Engineer Name Role Phone Marylu Marie DO Unavailable Taniya Grimes MD Primary Care Provider Encounter Details Date Type Department Care Team (Late st Contact Info) Description 01/29/2021 Orders Only [facility] Endocrinology, Diabetes and Metabolism [address] [place] [address], [place] [phone] Yosi Bustamante MD [address] [place] [address] Div of Endocrinology [place], [place] [phone] Thyroid cancer (HCC) Social History Tobacco Use [...] st Contact Info) Description 08/02/2024 2:20 PM WEB CONTENT DIRECTOR Appointment [facility] [address] [place] [address] 08/02/2024 3:00 PM WEB CONTENT DIRECTOR Office Visit [facility] - Hematology/Oncology [address] [place] [phone] Remi Beckett MD [address] [place] [phone] 08/18/2024 1:45 PM WEB CONTENT DIRECTOR Office Visit [facility] - ENT [address] [place] [phone] Neri Delgado MD [address] [place] [address] 08/30/2024 2:20 PM WEB CONTENT DIRECTOR Appointment [facility] [address] [place] [address] documented as of this encounter Visit Diagnoses Diagnosis Thyroid cancer (HCC)- Primary Malignant neoplasm of thyroid gland documented in this encounter Care Teams Optics Engineer Relationship Specialty Start Date End Date Taniya Grimes MD [address] [place] [address] 2L DIV OF [facility] [place] [address] PCP - General 07/01/20 05/10/22 Marylu Marie DO [address] [place] [address] 2L DIV OF [facility] [place] [address] Resident - PCP Student Resident 06/26/20 01/11/22 documented as of this encounter
--- OUTSIDE RECORDS SUMMARY | 2024-07-26 08:40 | XMS_ITS | Encounter Summary ---
Author Organization [facility] Health Address [address] [place] [address] Care Team Providers Care Experience Specialist Name Role Phone Marylu Marie DO Unavailable Taniya Grimes MD Primary Care Provider Reason for Visit * Reason Onset Date Comments Scheduling 03/04/2021 Encounter Details Date Type Department Care Team (Late st Contact Info) Description 03/04/2021 Telephone [facility] End[facility]ology, Diabetes and Metabolism [address] [place] [address], [place] [phone] Yosi Bustamante MD [address] [place] [address] [place] [address] Scheduling Social History Tobacco Use Types Packs/Day [...] st Contact Info) Description 08/02/2024 2:20 PM PARACHUTE HARNESS RIGGER Appointment [facility] [address] [place] [address] 08/02/2024 3:00 PM PARACHUTE HARNESS RIGGER Office Visit [facility] - Hematology/Oncology [address] [place] [phone] Remi Beckett MD [address] [place] [address] 08/18/2024 1:45 PM PARACHUTE HARNESS RIGGER Office Visit [facility] - ENT [address] [place] [address], [place] [address] Neri Delgado MD [address] [place] [address] 08/30/2024 2:20 PM PARACHUTE HARNESS RIGGER Appointment [facility] [address] [place] [address] documented as of this encounter Visit Diagnoses Not on filedocumented in this encounter Care Teams Experience Specialist Relationship Specialty Start Date End Date Taniya Grimes MD [address] [facility] 2L DIV OF [facility] [place] [address] PCP - General 07/01/20 05/10/22 Marylu Marie DO [address] [facility] 2L DIV OF [facility] [place] [address] Resident - PCP Student Resident 06/26/20 01/11/22 documented as of this encounter
--- OUTSIDE RECORDS SUMMARY | 2024-07-26 08:40 | XMS_ITS | Encounter Summary ---
Author Organization [facility] Health Address [address] [facility] [place] [address] Care Team Providers Care Project Account Manager Name Role Phone Marylu Marie DO Unavailable [phone] Taniya Grimes MD Primary Care Provider Encounter [...] Contact Info) Description 08/02/2024 2:20 PM HAND ROUTER OPERATOR Appointment [facility] [address] [place] [address] 08/02/2024 3:00 PM HAND ROUTER OPERATOR Office Visit [facility] - Hematology/Oncology [address] [place] [phone] Remi Beckett MD [address] [place] [phone] 08/18/2024 1:45 PM HAND ROUTER OPERATOR Office Visit [facility] - ENT [address] [place] [phone] Neri Delgado MD [address] [place] [address] 08/30/2024 2:20 PM HAND ROUTER OPERATOR Appointment [facility] [address] [place] [address] documented as of this encounter Visit Diagnoses Not on filedocumented in this encounter Care Teams Project Account Manager Relationship Specialty Start Date End Date Taniya Grimes MD [address] [place] [address] 2[place] [address] PCP - General 07/01/20 05/10/22 Marylu Marie DO [address] [place] [address] [place] [address] Resident - PCP Student Resident 06/26/20 01/11/22 documented as of this encounter
--- OUTSIDE RECORDS SUMMARY | 2024-07-26 08:40 | XMS_ITS | Encounter Summary ---
Author Organization [facility] Health Address [address] [facility] [place] [address] Care Team Providers Care Sales Hunter Name Role Phone Marylu Marie DO Unavailable Taniya Grimes MD Primary Care Provider Reason for Visit * Reason Onset Date Comments Medication Issue 02/06/2021 Encounter Details Date Type Department Care Team (Late st Contact Info) Description 02/06/2021 Telephone [facility] End[facility]ology, Diabetes and Metabolism [address] [place] [address], [facility] [place] [phone] Yosi Bustamante MD [address] [place] [address] [place] [address] Medication Issue Social History Tobacco Use Types [...] told to send script for Thyrogen to [facility] in [place], [place]. Script sent. documented in this encounter Plan of Treatment Upcoming Encounters Date Type Department Care Team (Late st Contact Info) Description 08/02/2024 2:20 PM STATISTICIAN Appointment [facility] [address] [place] [address] 08/02/2024 3:00 PM STATISTICIAN Office Visit [facility] - Hematology/Oncology [address] [place] [phone] Remi Beckett MD [address] [place] [phone] 08/18/2024 1:45 PM STATISTICIAN Office Visit [facility] - ENT [address] [place] [phone] Neri Delgado MD [address] [place] [address] 08/30/2024 2:20 PM STATISTICIAN Appointment [facility] [address] [place] [address] documented as of this encounter Visit Diagnoses Diagnosis Thyroid cancer (HCC) Malignant neoplasm of thyroid gland documented in this encounter Care Teams Sales Hunter Relationship Specialty Start Date End Date Taniya Grimes MD [address] [place] [address] DIV OF [facility] [place] [address] PCP - General 07/01/20 05/10/22 Marylu Marie DO [address] [place] [address] Resident - PCP Student Resident 06/26/20 01/11/22 documented as of this encounter
--- OUTSIDE RECORDS SUMMARY | 2024-07-26 08:41 | XMS_ITS | Encounter Summary ---
Author Organization [facility] Health Address [address] [facility] [place] [address] Care Team Providers Care Rectification Printer Name Role Phone Marylu Marei DO Unavailable [phone] Taniya Grimes MD Primary Care Provider [phone] Reason for Visit * Reason Onset Date Comments Medication Issue 01/29/2021 Perhaps medicat ion issue resolved. Encounter Details Date Type Department Care Team (Late st Contact Info) Description 01/29/2021 Telephone [facility] [address] [facility], [place] [phone] Yosi Fox MD [address] [place] [address] [place] [address] Medication Issue (Perhaps medication issue resolved. ) [...] AM CDT PRESCRIPTION SENT TO PHARMACY YOSI FOX MD * Telephone Encounter - Fabian Bernstein - 01/29/2021 10:16 AM CDT Patient called today stating she has found a pharmacy to have her radioactive iodine medication sent to that is approved by her insurance. Patient is now requesting iodine Rx sent to the [facility] that i've just entered into her pharmacy list on her chart. Patient states she's spend a week on the phone with her insurance and was given this information just recently. Can we send the Rx to [facility] in [place]? Please advise. Message Routed to Dr. Fox and Luh. ELE: 01-13-2021 documented in this encounter Plan of Treatment Upcoming Encounters Date Type Department Care Team (Late st Contact Info) Description 08/02/2024 2:20 PM SPECIALIST WOUND CARE Appointment [facility] [address] [place] [address] 08/02/2024 3:00 PM SPECIALIST WOUND CARE Office Visit [facility] - Hematology/Oncology [address] [place] [address] Remi Beckett MD [address] [place] [address] 08/18/2024 1:45 PM SPECIALIST WOUND CARE [facility] [address] [place] [phone] Neri Delgado MD [address] [place] [address] 08/30/2024 2:20 PM SPECIALIST WOUND CARE Appointment [facility] [address] [place] [address] documented as of this encounter Visit Diagnoses Not on filedocumented in this encounter Care Teams Rectification Printer Relationship Specialty Start Date End Date Taniya Grimes MD [address] [facility] 2L DIV OF [facility] [place] [address] PCP - General 07/01/20 05/10/22 Marylu Marie DO [address] [facility] 2L DIV OF [facility] [place] [address] Resident - PCP Student Resident 06/26/20 01/11/22 documented as of this encounter
--- OUTSIDE RECORDS SUMMARY | 2024-07-26 08:41 | XMS_ITS | Encounter Summary ---
Author Organization [facility] Health Address [address] [facility] [place] [address] Care Team Providers Care Interface Control Officer Name Role Phone Marylu Marie DO Unavailable [phone] Taniya Grimes MD Primary Care Provider [phone] Encounter Details Date Type Department Care Team (Late st Contact Info) Description 11/14/2020 Orders Only [facility] - Orthopedics [address] [facility] [place] [place] [phone] Cesar Brooks MD [address] [facility] [address] [place], [place] [phone] Primary osteoarthritis of left hip Social History [...] st Contact Info) Description 08/02/2024 2:20 PM SOFTWARE MANAGER Appointment [facility] [address] [place] [address] 08/02/2024 3:00 PM SOFTWARE MANAGER Office Visit [facility] Group - Hematology/Oncology [address] [place] [phone] Remi Beckett MD [address] [place] [phone] 08/18/2024 1:45 PM SOFTWARE MANAGER Office Visit [facility] - ENT [address] [place] [phone] Neri Delgado MD [address] [place] [address] 08/30/2024 2:20 PM SOFTWARE MANAGER Appointment [facility] [address] [place] [address] documented as of this encounter Results * XR HIP LEFT 2VW OR MORE (11/19/2020 11:38 AM CDT) Anatomical Region Laterality Modality Pelvis, Lower Extremity Radiogra [facility] 11/19/2020 12:5 7 PM CDT Impressions [...] is seen. There is severe arthritis with pfqf-bp-uhqv contact superiorly, subchondral cysts, sclerosis, and osteophytes. [...] is seen. There is severe arthritis with zgbg-qi-bgdd contact superiorly, subchondral cysts, sclerosis, and osteophytes. [...] is seen. There is severe arthritis with kfoh-oh-rxjf contact superiorly, subchondral cysts, sclerosis, and osteophytes. [...] is seen. There is severe arthritis with kera-fg-awra contact superiorly, subchondral cysts, sclerosis, and osteophytes. [...] thigh documented in this encounter Care Teams Interface Control Officer Relationship Specialty Start Date End Date Taniya Grimes MD [address] 2L DIV OF [facility] [place] [address] PCP - General 07/01/20 05/10/22 Marylu Marie DO [address] 2L DIV OF [facility] [place] [address] Resident - PCP Student Resident 06/26/20 01/11/22 documented as of this encounter
--- OUTSIDE RECORDS SUMMARY | 2024-07-26 08:41 | XMS_ITS | Encounter Summary ---
Author Organization [facility] Health Address [address] [facility] [place] [address] Care Team Providers Care Automobile Seat Cover Installer Name Role Phone Marylu Marie DO Unavailable [phone] Taniya Grimes MD Primary Care Provider Reason for Visit * Reason Onset Date Comments Med Question 12/09/2020 Encounter Details Date Type Department Care Team (Late st Contact Info) Description 12/09/2020 Telephone [facility] Endocrinology, Diabetes and Metabolism [address] [place] [address], [facility] [place] [phone] Yosi Bustamante MD [address] [place] [address] [place] [address] Med Question Social History Tobacco Use Types [...] - 12/09/2020 12:01 PM CDT Fax received [facility] stating pt's Thyrogen was approved for one fill; however, pt called stating she was told by a rep at [facility] that the Thyrogen can only be obtained via buy and bill. Message sent to rep from [facility] asking to help figure out where medication [...] st Contact Info) Description 08/02/2024 2:20 PM FEED MIXER HELPER Appointment [facility] [address] [place] [address] 08/02/2024 3:00 PM FEED MIXER HELPER Office Visit [facility] Group - Hematology/Oncology [address] [place] [phone] Remi Beckett MD [address] [place] [phone] 08/18/2024 1:45 PM FEED MIXER HELPER Office Visit [facility] - ENT [address] [place] [phone] Neri Delgado MD [address] [place] [address] 08/30/2024 2:20 PM FEED MIXER HELPER Appointment [facility] [address] [place] [address] documented as of this encounter Visit Diagnoses Not on filedocumented in this encounter Care Teams Automobile Seat Cover Installer Relationship Specialty Start Date End Date Taniya Grimes MD [address] 2L DIV OF [facility] [place] [address] PCP - General 07/01/20 05/10/22 Marylu Marie DO [address] 2L DIV OF [facility] [place] [address] Resident - PCP Student Resident 06/26/20 01/11/22 documented as of this encounter
--- OUTSIDE RECORDS SUMMARY | 2024-07-26 08:41 | XMS_ITS | Encounter Summary ---
Author Organization [facility] Health Address [address] [facility] [place] [address] Care Team Providers Care Home Delivery Driver Name Role Phone Marylu Marie DO Unavailable [phone] Taniya Grimes MD Primary Care Provider Encounter Details Date Type Department Care Team (Late st Contact Info) Description 11/06/2020 Orders Only [facility] Endocrinology, Diabetes and Metabolism [address] [place] [address], [place] [phone] Yosi Bustamante MD [address] [place] [address] of Endocrinology [place], [place] [phone] Postoperative hypothyroidism; Thyroid cancer (HCC); Hypocalcemia Social [...] st Contact Info) Description 08/02/2024 2:20 PM MILLING OPERATOR Appointment [facility] [address] [place] [address] 08/02/2024 3:00 PM MILLING OPERATOR Office Visit [facility] - Hematology/Oncology [address] [place] [phone] Remi Beckett MD [address] [place] [phone] 08/18/2024 1:45 PM MILLING OPERATOR Office Visit [facility] - ENT [address] [place] [phone] Neri Delgado MD [address] [place] [address] 08/30/2024 2:20 PM MILLING OPERATOR Appointment [facility] [address] [place] [address] documented as of this encounter Visit Diagnoses Diagnosis Postoperative hypothyroidism Postsurgical hypothyroidism Thyroid cancer (HCC) Malignant neoplasm of thyroid gland Hypocalcemia documented in this encounter Care Teams Home Delivery Driver Relationship Specialty Start Date End Date Taniya Grimes MD [address] [place] [address] 2L DIV OF [facility] [place] [address] PCP - General 07/01/20 05/10/22 Marylu Marie DO [address] [place] [address] 2L DIV OF [facility] [place] [address] Resident - PCP Student Resident 06/26/20 01/11/22 documented as of this encounter
--- OUTSIDE RECORDS SUMMARY | 2024-07-26 08:41 | XMS_ITS | Encounter Summary ---
Author Organization [facility] Health Address [address] [facility] [place] [address] Care Team Providers Care Peoplesoft Financial Developer Name Role Phone Marylu Marie DO Unavailable [phone] Taniya Grimes MD Primary Care Provider Encounter Details Date Type Department Care Team (Latest Contact Info) Description 11/19/2020 11:07 AM CDT - 11/19/2020 11:59 PM CDT Hospital Encounter [facility] DIAGNOSTIC RAD [facility] [address] [facility] [place] [address] Cesar Brooks MD 1031 [facility] [address] [place], [place] [phone] Discharge Disposition: Home or Self Care Social [...] the Blood 60 capsule 11 11/06/2020 05/22/2021 mfvtytm-sbkhpusvc-udfu 333-133-5 MG tabletIndications:Other hypoparathyroidism (HCC) Take 1 [...] fluticasone propionate (FLONASE) 50 MCG/ACT nasal spray [place] 2 sprays into each nostril 16 g 09/06/2019 04/11/2021 gabapentin (NEURONTIN) 300 MG capsuleIndications:Primar y osteoarthritis of left hip TAKE 1 CAPSULE BY MOUTH THREE TIMES A DAY 90 capsule 5 09/11/2020 03/25/2021 [id number]-[id number]-UBC-C-HY AL PO Take 1 tablet by mouth 3 times daily 06/13/2023 levothyroxine (SYNTHROID) 112 MCG tabletIndications:Hypothy roidism,Malignant Neoplasm of Thyroid Take 1 (one) tablet by mouth daily before breakfast Reasons: Underactive Thyroid, Cancer of Thyroid 30 tablet 11 10/14/2020 12/09/2020 meloxicam (MOBIC) 7.5 MG tablet TAKE 1 TABLET BY MOUTH EVERY DAY 60 tablet 2 07/16/2020 01/13/2021 [place]-3 Fatty Acids (FISH OIL) 1000 MG capsule [...] Contact Info) Description 08/02/2024 2:20 PM MEDICAL RESEARCH TECH Appointment [facility] [address] [place] [address] 08/02/2024 3:00 PM MEDICAL RESEARCH TECH Office Visit [facility] Group - Hematology/Oncology [address] [place] [phone] Remi Beckett MD [address] [place] [phone] 08/18/2024 1:45 PM MEDICAL RESEARCH TECH Office Visit [facility] - ENT [address] [place] [phone] Neri Delgado MD [address] [place] [address] 08/30/2024 2:20 PM MEDICAL RESEARCH TECH Appointment [facility] [address] [place] [address] documented as of this encounter Procedures Procedure [...] is seen. There is severe arthritis with iqdq-zh-dclu contact superiorly, subchondral cysts, sclerosis, and osteophytes. [...] is seen. There is severe arthritis with qebk-ks-dzmj contact superiorly, subchondral cysts, sclerosis, and osteophytes. [...] thigh documented in this encounter Care Teams Peoplesoft Financial Developer Relationship Specialty Start Date End Date Taniya Grimes MD [address] [place] [address] PCP - General 07/01/20 05/10/22 Marylu Marie DO [address] [place] [address] Resident - PCP Student Resident 06/26/20 01/11/22 documented as of this encounter
--- OUTSIDE RECORDS SUMMARY | 2024-07-26 08:41 | XMS_ITS | Encounter Summary ---
Author Organization [facility] Health Address [address] [facility] [place] [address] Care Team Providers Care Trauma Coordinator Name Role Phone Marylu Marie DO Unavailable Taniya Grimes MD Primary Care Provider Reason for Visit * Reason Comments Pain Ear right ear possible b ite Encounter Details Date Type Department Care Team (Late st Contact Info) Description 11/19/2020 12:40 PM CDT Office Visit [facility] General Internal Medicine [address] [facility], [facility] [place] [address] Lesion of right ear (Primary Dx) Social [...] this encounter Progress Notes * Neri Chow, LIVESTOCK EXHIBITOR-SEXUAL ASSAULT NURSE - 11/19/2020 12:42 PM CDT Images from [...] ear. Has never been evaluated by a med aide. Pt reports that she first noticed the [...] or concerns in the interim. Neri Chow APRN-SEXUAL ASSAULT NURSE Associated attestation - Andria Anaya DO - 11/19/2020 5:14 PM CDT I have reviewed the SPIRAL GEAR GENERATOR's note and agree with his assessment and plan. Andria Anaya DO documented in this encounter Plan of Treatment Upcoming Encounters Date Type Department Care Team (Late st Contact Info) Description 08/02/2024 2:20 PM GUEST SERVICES MANAGER Appointment [facility] [address] [place] [address] 08/02/2024 3:00 PM GUEST SERVICES MANAGER Office Visit [facility] - Hematology/Oncology [address] [place] [address] Remi Beckett MD [address] [place] [phone] 08/18/2024 1:45 PM GUEST SERVICES MANAGER Office Visit [facility] - ENT [address] [place] [address] Neri Delgado MD [address] [place] [address] 08/30/2024 2:20 PM GUEST SERVICES MANAGER Appointment [facility] [address] [place] [address] documented as of this encounter Visit Diagnoses Diagnosis Lesion of right ear- Primary documented in this encounter Care Teams Trauma Coordinator Relationship Specialty Start Date End Date Taniya Grimes MD [address] [place] [address] 2L DIV OF [facility] [place] [address] PCP - General 07/01/20 05/10/22 Marylu Marie DO [address] [place] [address] 2[place] [address] Resident - PCP Student Resident 06/26/20 01/11/22 documented as of this encounter
--- OUTSIDE RECORDS SUMMARY | 2024-07-26 08:41 | XMS_ITS | Encounter Summary ---
Author Organization [facility] Health Address [address] [place] [address] Care Team Providers Care Awning Hanger Helper Name Role Phone Marylu Marie DO Unavailable Taniya Grimes MD Primary Care Provider [phone] Encounter Details Date Type Department Care Team [...] st Contact Info) Description 08/02/2024 2:20 PM ENVIRONMENTAL COMPLIANCE SPECIALIST Appointment [facility] [place] [address] 08/02/2024 3:00 PM ENVIRONMENTAL COMPLIANCE SPECIALIST Office Visit [facility] - Hematology/Oncology [address] [place] [phone] Remi Beckett MD [address] [place] [phone] 08/18/2024 1:45 PM ENVIRONMENTAL COMPLIANCE SPECIALIST Office Visit [facility] - ENT [address] [place] [phone] Neri Delgado MD [address] [place] [address] 08/30/2024 2:20 PM ENVIRONMENTAL COMPLIANCE SPECIALIST Appointment [facility] [address] [place] [address] documented as of this encounter Visit Diagnoses Not on filedocumented in this encounter Care Teams Awning Hanger Helper Relationship Specialty Start Date End Date Taniya Grimes MD [address] [place] [address] [address] [place] [address] PCP - General 07/01/20 05/10/22 Marylu Marie DO [address] [place] [address] [address] [place] [address] Resident - PCP Student Resident 06/26/20 01/11/22 documented as of this encounter
--- OUTSIDE RECORDS SUMMARY | 2024-07-26 08:41 | XMS_ITS | Encounter Summary ---
Author Organization [facility] Health Address [address] [facility] [place] [address] Care Team Providers Care Medical Education Manager Name Role Phone Marylu Marie DO Unavailable [phone] Taniya Grimes MD Primary Care Provider Reason for Visit * Reason Onset Date Comments Medication Problem 12/06/2020 Encounter Details Date Type Department Care Team (Late st Contact Info) Description 12/06/2020 Telephone [facility] [address] [place] [address] Cesar [place] MD [address] [phone] Medication Problem Social History Tobacco Use Types [...] st Contact Info) Description 08/02/2024 2:20 PM CARRY IN WORKER Appointment [facility] [address] [place] [address] 08/02/2024 3:00 PM CARRY IN WORKER Office Visit [facility] - Hematology/Oncology [address] [place] [phone] Remi Beckett MD [address] [place] [phone] 08/18/2024 1:45 PM CARRY IN WORKER Office Visit [facility] - ENT [address] [place] [phone] Neri Delgado MD [address] [place] [address] 08/30/2024 2:20 PM CARRY IN WORKER Appointment [facility] [address] [place] [address] documented as of this encounter Visit Diagnoses Not on filedocumented in this encounter Care Teams Medical Education Manager Relationship Specialty Start Date End Date Taniya Grimes MD [address] 2[address] DIV OF [facility] [place] [address] PCP - General 07/01/20 05/10/22 Marylu Marie DO [address] 2[address] DIV OF [facility] [place] [address] Resident - PCP Student Resident 06/26/20 01/11/22 documented as of this encounter
--- OUTSIDE RECORDS SUMMARY | 2024-07-26 08:41 | XMS_ITS | Encounter Summary ---
Author Organization [facility] Health Address [address] [facility] [place] [address] Care Team Providers Care Dump Grader Name Role Phone Marylu Marie DO Unavailable Taniya Grimes MD Primary Care Provider Reason for Visit * Reason Onset Date Comments Medication Prior Auth Request 01/13/2021 Encounter Details Date Type Department Care Team (Late st Contact Info) Description 01/13/2021 Telephone [facility] Endocrinology, Diabetes and Metabolism [address] [place] [address] Jane Abdi, paint booth operator Prior Auth Request Social History Tobacco Use [...] buy and bill for Thyrogen. Dr. Dianna nails via [employer]. documented in this encounter Plan of Treatment Upcoming Encounters Date Type Department Care Team (Late st Contact Info) Description 08/02/2024 2:20 PM HIGH TENSION TESTER Appointment [facility] [address] [place] [address] 08/02/2024 3:00 PM HIGH TENSION TESTER Office Visit [facility] - Hematology/Oncology [address] [place] [phone] Remi Beckett MD [address] [place] [phone] 08/18/2024 1:45 PM HIGH TENSION TESTER Office Visit [facility] - ENT [address] [place] [phone] Neri Delgado MD [address] [place] [phone] 08/30/2024 2:20 PM HIGH TENSION TESTER Appointment [facility] [address] [place] [address] documented as of this encounter Visit Diagnoses Not on filedocumented in this encounter Care Teams Dump Grader Relationship Specialty Start Date End Date Taniya Grimes MD [address] [place] [address] [address] DIV [place] [phone] PCP - General 07/01/20 05/10/22 Marylu Marie DO [address] [place] [address] 2[address] DIV OF [facility] [place] [address] Resident - PCP Student Resident 06/26/20 01/11/22 documented as of this encounter
--- OUTSIDE RECORDS SUMMARY | 2024-07-26 08:41 | XMS_ITS | Encounter Summary ---
Author Organization [facility] Health Address [address] [facility] [place] [address] Care Team Providers Care Mining Engineer Name Role Phone Marylu Marie DO Unavailable Taniya Grimes MD Primary Care Provider [phone] Encounter Details Date Type Department Care Team (Latest Contact Info) Description 11/11/2020 2:40 PM CDT - 11/11/2020 11:59 PM CDT Hospital Encounter [facility]RAW [facility] [address] [place] [address] Yosi Bustamante MD [address] [facility] [address] [facility] [place] [address] Discharge Disposition: Home or Self Care Social [...] the Blood 60 capsule 11 11/06/2020 05/22/2021 pclikhx-[id number]-avmi 333-133-5 MG tabletIndications:Other hypoparathyroidism (HCC) Take 1 [...] fluticasone propionate (FLONASE) 50 MCG/ACT nasal spray [place] 2 sprays into each nostril 16 g 09/06/2019 04/11/2021 gabapentin (NEURONTIN) 300 MG capsuleIndications:Primar y osteoarthritis of left hip TAKE 1 CAPSULE BY MOUTH THREE TIMES A DAY 90 capsule 5 09/11/2020 03/25/2021 [id number]-XZEFOWGKS-TXR-C-[id number] AL PO Take 1 tablet by mouth 3 times daily 06/13/2023 levothyroxine (SYNTHROID) 112 MCG tabletIndications:Hypothy roidism,Malignant Neoplasm of Thyroid Take 1 (one) tablet by mouth daily before breakfast Reasons: Underactive Thyroid, Cancer of Thyroid 30 tablet 11 10/14/2020 12/09/2020 meloxicam (MOBIC) 7.5 MG tablet TAKE 1 TABLET BY MOUTH EVERY DAY 60 tablet 2 07/16/2020 01/13/2021 [place]-3 Fatty Acids (FISH OIL) 1000 MG capsule [...] st Contact Info) Description 08/02/2024 2:20 PM PRESIDENT ERGONOMIC CONSULTING Appointment [facility] [address] [place] [address] 08/02/2024 3:00 PM PRESIDENT ERGONOMIC CONSULTING Office Visit [facility] - Hematology/Oncology [address] [place] [phone] Remi Beckett MD [address] [place] [phone] 08/18/2024 1:45 PM PRESIDENT ERGONOMIC CONSULTING Office Visit [facility] - ENT [address] [place] [phone] Neri Delgado MD [address] [place] [address] 08/30/2024 2:20 PM PRESIDENT ERGONOMIC CONSULTING Appointment [facility] [address] [place] [address] documented as of this encounter Procedures Procedure Name Priority Date/Time Associated Diagnosis Comments URINE DRUG SCREEN IMMUNOASSAY Routine 11/11/2020 3:56 PM CDT nursing home current use of 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 THYROGLOBULIN REFLEX [...] DRUG SCREEN COMPREHENSIVE (11/11/2020 3:56 PM CDT) [facility] Amphetamines Screen Urine Negative Negative: < 1000 ng/mL 11/11/2020 4:50 PM CDT [facility] Barbiturates Screen Urine Negative Negative: < 200 ng/mL 11/11/2020 4:50 PM CDT [facility] Benzodiazepine Screen Urine Negative Negative: < 200 ng/mL 11/11/2020 4:50 PM [facility] Opiates Urine Negative Negative: < 300 ng/mL 11/11/2020 4:50 PM T [facility] Cocaine Metabolites Urine Negative Negative: < 300 ng/mL 11/11/2020 4:50 PM [facility] Phencyclidine Screen Urine Negative Negative: < 25 ng/ml 11/11/2020 4:50 PM CDT [facility] Cannabinoids Screen Urine Negative Negative: <50 ng/mL 11/11/2020 4:50 PM CDT [facility] Methadone Screen Urine Negative Negative: < 300 ng/mL 11/11/2020 4:50 PM [facility] Fentanyl Screen Urine Negative Negative: <1.0 ng/mL 11/11/2020 4:50 PM [facility] Urine URINE / Unknown Collection / Unknown 11/11/2020 3:56 PM CDT 11/11/2020 4:15 PM CDT [facility] - 11/11/2020 4:50 PM CDT The Urine Toxicology Screening Panel does not screen for Propoxyphene, Meprobamate, Carisoprodol, Trazodone, jrrp-rju-trvbfdj medications and/or volatiles (Acetone, Isopropanol, Methanol or Ethylene Glycol). Ethanol, Salicylate, Acetaminophen, Tricyclic Antidepressants and several therapeutic drugs may be individually assayed in serum or plasma specimen. Toxicology testing by the [facility] is an aid to medical diagnosis and treatment of patients. No documented chain of custody was maintained. Results are intended to be used for clinical purposes only. ? Yaneth Rahman OCC THERAPIST-COP LAB - URINE CH EMISTRY ORDERABLES Performing Organization Address City/State/[facility] Co de Phone Number [address] [address], [facility] [phone] * (ABNORMAL) THYROGLOBULIN BY ANTONIETA RFLXED (11/11/2020 3:49 PM CDT) Thyroglobulin by ANTONIETA 0.9(L) 1.5 - 38.5 ng/mL 11/13/2020 5:08 PM CDT [facility] ([facility]) Comment: According to the National Academy [...] PM CDT 11/11/2020 4:28 PM CDT Narrative [facility] ([facility]) - 11/13/2020 5:08 PM CDT Performed at: ??01 - [facility] ??[id number] Alligator Shear Operator: Oral Melendez PhD, Phone: ??[phone] Yosi Bustamante MD LAB - CHEMISTRY ORD ERABLES Performing Organization Address [facility]/ZIP Co de Phone Number [facility] ([facility]) [address] [place] [address], [facility] * THYROGLOBULIN REFLEX PROFILE (11/11/2020 3:49 PM CDT) Thyroglobulin Antibody <1.0 0.0 - 0.9 IU/mL 11/13/2020 5:08 PM CDT [facility] ([facility]) Comment:Thyroglobulin Antibo dy measured by Lisbet [place] Method[facility] Blood BLOOD SPECIMEN / Unknown Lab Venipuncture / Unknown 11/11/2020 3:49 PM CDT 11/11/2020 4:28 PM CDT Narrative [facility] ([facility]) - 11/13/2020 5:08 PM CDT Performed at: ??01 - [address] ??[id number] Alligator Shear Operator: Oral Melendez PhD, Phone: ??[phone] Yosi Bustamante MD LAB - CHEMISTRY ORD ERABLES Performing Organization Address City/[facility]/ZIP Co de Phone Number [facility] ([facility]) [address] [place] [address], [facility] * VITAMIN D 25-HYDROXY (11/11/2020 3:49 PM CDT) Vitamin D, 25 Hydroxy 53.0 See comment: ng/mL 11/11/2020 5:09 PM CDT [facility] Comment: The recommendations for [...] [facility]/ZIP Co de Phone Number [address] [address], [place] [phone] * (ABNORMAL) PTH INTACT W/O CALCIUM (11/11/2020 3:49 PM CDT) PTH Intact <4.0(L) 8.0 - 77.0 pg/mL 11/11/2020 4:51 PM CDT [facility] Blood BLOOD SPECIMEN / Unknown Lab Venipuncture / Unknown 11/11/2020 3:49 PM CDT 11/11/2020 4:15 PM CDT Yosi Bustamante MD LAB - CHEMISTRY ORD ERABLES Performing Organization Address City/[facility]/ZIP Co de Phone Number [address] [address], [place] [phone] * (ABNORMAL) RENAL FUNCTION PANEL (11/11/2020 3:49 PM CDT) BUN 21 7 - 26 mg/dL 11/11/2020 4:51 PM [facility] Creatinine 0.8 0.6 - 1.2 mg/dL 11/11/2020 4:51 PM [facility] Sodium 143 136 - 145 mmol/L 11/11/2020 4:51 PM [facility] Potassium 3.4(L) 3.5 - 4.5 mmol/L 11/11/2020 4:51 PM [facility] Chloride 104 98 - 107 mmol/L 11/11/2020 4:51 PM [facility] CO2 27 22 - 29 mmol/L 11/11/2020 4:51 PM [facility] Glucose 132(H) 70 - 115 mg/dL 11/11/2020 4:51 PM [facility] Albumin 4.1 3.4 - 5.0 g/dL 11/11/2020 4:51 PM [facility] Calcium 9.8 8.4 - 10.2 mg/dL 11/11/2020 4:51 PM [facility] Phosphorus 4.5 2.3 - 4.7 mg/dL 11/11/2020 4:51 PM [facility] Anion Gap 15 8 - 18 11/11/2020 4:51 PM [facility] BUN/Creatinine Ratio 26(H) 7 - 23 11/11/2020 4:51 PM [facility] Osmolality Calculated 301(H) 270 - 300 mOsm/kg 11/11/2020 4:51 PM [facility] eGFR >60 >60 mL/min/1.7 3 m2 11/11/2020 4:51 PM [facility] Blood BLOOD SPECIMEN / Unknown Lab Venipuncture / Unknown 11/11/2020 3:49 PM CDT 11/11/2020 4:15 PM T Yosi Bustamante MD LAB - CHEMISTRY ORD ERABLES [facility] [address] [place] [address], [facility] [phone] * TSH (11/11/2020 3:49 PM CDT) TSH 0.900 0.350 - 4.940 uIU/mL 11/11/2020 5:09 PM CDT [facility] Blood BLOOD SPECIMEN / Unknown Lab Venipuncture / Unknown 11/11/2020 3:49 PM CDT 11/11/2020 4:15 PM CDT Yosi Bustamante MD LAB - CHEMISTRY ORD ERABLES [facility] [address] [place] [address], [facility] [phone] documented in this encounter Visit Diagnoses Diagnosis Postoperative hypothyroidism Postsurgical hypothyroidism Thyroid cancer (HCC) Malignant neoplasm of thyroid gland Hypocalcemia intermodal customer service current use of 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 Encounter for long-term (current) use of other medications documented in this encounter Care Teams Mining Engineer Relationship Specialty Start Date End Date Taniya Grimes MD [address] DIV OF [facility] [place] [address] PCP - General 07/01/20 05/10/22 Marylu Marie DO [address] DIV OF [facility] [place] [address] Resident - PCP Student Resident 06/26/20 01/11/22 documented as of this encounter
--- OUTSIDE RECORDS SUMMARY | 2024-07-26 08:41 | XMS_ITS | Encounter Summary ---
Author Organization [facility] Health Address [address] [place] [address] Care Team Providers Care Language Teacher Name Role Phone Marylu Marie DO Unavailable [phone] Taniya Grimes MD Primary Care Provider Reason for Visit * Reason Comments Thyroid Problem HYPOTHYROIDISM Thyroid Cancer Thyroid Problem S/P THYROIDECTOMY General HYPOPARATHYROIDISM , HYPOCALCEMIA Encounter Details Date Type Department Care Team (Latest Contact Info) Description 01/13/2021 8:40 AM CDT Office Visit [facility] Endocrinology, Diabetes and Metabolism [address] [place] [address], [facility] [place] [phone] Yosi Bustamante MD [address] [place] [address] [place] [address] Postoperative hypothyroidism (Primary Dx); Thyroid cancer (HCC); [...] option 1 or you can send a [employer] Ocean message. Normal business hours are from 8:00 am to 4:30 pm Wednesday through Wednesday. Fax# is [phone]. REFILL REQUESTS: contact your pharmacy who will reach out to us. If you have changes to your prescription, you will need to contact us directly at [phone] and select option 2 or send your [employer] message. We request that all prescription refills [...] next business day are given to the Tipple Operator physician ironworker helper shop. Please call [phone] and identify yourself as a patient in our practice needing to speak to Tipple Operator. The paper bag press operator will contact the physician ironworker helper shop. You can generally expect a return call [...] outside of [facility] facility, [facility] or [facility] may delay the results getting to us. Please contact the lab and request that they are faxed to us at [phone]. IF GOING TO [facility] or [facility]- TAKE LAB ORDER WITH YOU [...] less than 24 hours in advance ADDRESS: [address] [place] [address], [place] [address] Website: [email or web address] for additional information about [facility] and an interactive health encyclopedia. Pulse 74 [...] ?? Most chocolate (due to milk content). [place] powder and some dark chocolates are allowed. [...] without salt, except soybeans and (according to [facility] diet) afew other beans. ?? [...] chicken or beef, oil and vinegar dressing Radom with Matzo crackers, plain peanut butter, jelly [...] LETTER IS IN MEDIA LAB Results for BRISA CAICEDO ( ) [...] - 0.9 IU/mL <1.0 <1.0 Results for BRISA CAICEDO ( ) [...] AM ?? OUTSIDE RECORDS RECEIVED ON 02/14/2021 [facility] ER 12/11/2020 CC FALL AND [...] Gatherings with Friends and Family: ? Attends Evangelical Services: ? Active Member of Clubs or [...] the Blood, Disp: 60 capsule, Rfl: 11 kgkxyhh-gwefcaref-ajpx 333-133-5 MG tablet, Take 1 (one) tablet [...] fluticasone propionate (FLONASE) 50 MCG/ACT nasal spray, [place] 2 sprays into each nostril, Disp: 16g, Rfl: 0 gabapentin (NEURONTIN) 300 MG capsule, TAKE 1 CAPSULE BY MOUTH THREE TIMES A DAY, Disp: 90 capsule,Rfl: 5 SPLJIV-[id number]-PTR-C-HYAL PO, Take 1 tablet by mouth 3 times daily, Disp: , Rfl: levothyroxine (SYNTHROID) 112 MCG tablet, Take 1 (one) tablet by mouth once daily, Disp: 90 tablet,Rfl: 4 meloxicam (MOBIC) 7.5 MG tablet, TAKE 1 TABLET BY MOUTH EVERY DAY, Disp: 60 tablet, Rfl: 2 [place]-3 Fatty Acids (FISH OIL) 1000 MG capsule, [...] ?? Most chocolate (due to milk content). [place] powder and some dark chocolates are allowed. [...] without salt, except soybeans and (according to [facility] diet) afew other beans. ?? [...] chicken or beef, oil and vinegar dressing [place] with Matzo crackers, plain peanut butter, jelly [...] st Contact Info) Description 08/02/2024 2:20 PM COMMODITY SUPERVISOR Appointment [facility] [address] [place] [address] 08/02/2024 3:00 PM COMMODITY SUPERVISOR Office Visit [facility] - Hematology/Oncology [address] [place] [address] Remi Beckett MD [address] [place] [address] 08/18/2024 1:45 PM COMMODITY SUPERVISOR Office Visit [facility] - ENT [address] [place] [address] Neri Delgado MD [address] [place] [address] 08/30/2024 2:20 PM COMMODITY SUPERVISOR Appointment [facility] [address] [place] [address] Scheduled Orders Name Type Priority Associated Diagnoses [...] 38.5 ng/mL 02/18/2021 9:10 AM CDT [facility] ([facility]) Comment: According to the [...] 12:30 PM CDT 02/14/2021 12:36 PM CDT [facility] ([facility]) - 02/18/2021 9:10 AM CDT Performed at: ??01 - [facility] [address] [place], [place] ??[id number] Sociology Faculty Member: Oral Melendez PhD, Phone: ??[phone] Yosi Bustamante MD LAB - CHEMISTRY ORD ERABLES [facility] ([facility]) [address] [place] [address], [facility] * (ABNORMAL) RENAL FUNCTION PANEL (02/14/2021 12:30 PM CDT) BUN 16 7 - 26 mg/dL 02/14/2021 1:13 PM CDT [facility] Creatinine 0.79 0.56 - 0.96 mg/dL 02/14/2021 1:13 PM T [facility] Sodium 143 136 - 145 mmol/L 02/14/2021 1:13 PM T [facility] Potassium 4.7(H) 3.5 - 4.5 mmol/L 02/14/2021 1:13 PM [facility] Chloride 110(H) 98 - 107 mmol/L 02/14/2021 1:13 PM [facility] CO2 24 22 - 29 mmol/L 02/14/2021 1:13 PM T [facility] Glucose 100 70 - 115 mg/dL 02/14/2021 1:13 PM [facility] Albumin 4.0 3.4 - 5.0 g/dL 02/14/2021 1:13 PM T [facility] Calcium 8.0(L) 8.4 - 10.2 mg/dL 02/14/2021 1:13 PM [facility] Phosphorus 4.3 2.9 - 5.1 mg/dL 02/14/2021 1:13 PM CDT [facility] Anion Gap 14 8 - 18 02/14/2021 1:13 PM CDT [facility] BUN/Creatinine Ratio 20 7 - 23 02/14/2021 1:13 PM CDT [facility] Osmolality Calculated 297 270 - 300 mOsm/kg 02/14/2021 1:13 PM T [facility] eGFR by CKD-EPI 80(L) >=90 mL/min/1.7 3 m2 02/14/2021 1:13 PM CDT [facility] Blood BLOOD SPECIMEN / Unknown Lab Venipuncture / Unknown 02/14/2021 12:30 PM CDT 02/14/2021 12:41 PM CDT Yosi Bustamante MD LAB - CHEMISTRY ORD ERABLES Performing Organization Address City/[facility]/ZIP Co de Phone Number [facility] [address] [place] [address], [facility] [phone] * THYROGLOBULIN REFLEX PROFILE (02/14/2021 12:30 PM CDT) Thyroglobulin Antibody <1.0 0.0 - 0.9 IU/mL 02/18/2021 9:10 AM CDT [facility] ([facility]) Comment:Thyroglobulin Antibo dy measured by Lisbet [place] Methodology Blood BLOOD SPECIMEN / Unknown Lab Venipuncture / Unknown 02/14/2021 12:30 PM CDT 02/14/2021 12:36 PM CDT Narrative [facility] ([facility]) - 02/18/2021 9:10 AM CDT Performed at: ??01 - [facility] [address] [place], [place] ??[id number] Sociology Faculty Member: Oral Melendez PhD, Phone: ??[phone] Yosi Bustamante MD LAB - CHEMISTRY ORD ERABLES [facility] ([facility]) [address] [place] [address], [facility] documented in this encounter Visit Diagnoses Diagnosis Postoperative hypothyroidism- Primary Postsurgical hypothyroidism Thyroid cancer (HCC) Malignant neoplasm of thyroid gland Hypocalcemia Other hypoparathyroidism (HCC) documented in this encounter Care Teams Language Teacher Relationship Specialty Start Date End Date Taniya Grimes MD [address] 2[address] DIV OF [facility] [place] [address] PCP - General 07/01/20 05/10/22 Marylu Marie DO [address] DIV OF [facility] [place] [address] Resident - PCP Student Resident 06/26/20 01/11/22 documented as of this encounter
--- OUTSIDE RECORDS SUMMARY | 2024-07-26 08:41 | XMS_ITS | Encounter Summary ---
Author Organization [facility] Health Address [address] [place] [address] Care Team Providers Care Tank Calibrator Name Role Phone Marylu Marie DO Unavailable [phone] Taniya Grimes MD Primary Care Provider [phone] Reason for Visit * Reason Onset Date Comments Med Question 11/06/2020 Encounter Details Date Type Department Care Team (Late st Contact Info) Description 11/06/2020 Telephone [facility] General Internal Medicine [address] [place] [address], [place] [address] Taniya Grimes MD [address] [place] [address] [place] [address] Med Question Social History Tobacco [...] st Contact Info) Description 08/02/2024 2:20 PM PLANT ATTENDANT OR ASSISTANT OPERATOR Appointment [facility] [address] [place] [address] 08/02/2024 3:00 PM PLANT ATTENDANT OR ASSISTANT OPERATOR Office Visit [facility] - Hematology/Oncology [address] [place] [phone] Remi Beckett MD [address] [place] [address] 08/18/2024 1:45 PM PLANT ATTENDANT OR ASSISTANT OPERATOR Office Visit [facility] ENT [address] [place] [address] Neri Delgado MD [address] [place] [address] 08/30/2024 2:20 PM PLANT ATTENDANT OR ASSISTANT OPERATOR Appointment [facility] [address] [place] [address] documented as of this encounter Visit Diagnoses Not on filedocumented in this encounter Care Teams Tank Calibrator Relationship Specialty Start Date End Date Taniya Grimes MD [address] [facility] 2L DIV OF [facility] [place] [address] PCP - General 07/01/20 05/10/22 [place] [address] [place] [address] 2L DIV OF [facility] [place] [address] Resident - PCP Student Resident 06/26/20 01/11/22 documented as of this encounter
--- OUTSIDE RECORDS SUMMARY | 2024-07-26 08:41 | XMS_ITS | Encounter Summary ---
Author Organization [facility] Health Address [address] [facility] [place] [address] Care Team Providers Care Detonator Assembler Name Role Phone Marylu Marie DO Unavailable Taniya Grimes MD Primary Care Provider Reason for Visit * Reason Comments Lower Extremity Problem hip left Encounter Details Date Type Department Care Team (Late st Contact Info) Description 11/04/2020 2:00 PM CDT Office Visit [facility] General Internal Medicine [address] [facility], [place] [address] intermediate current use of 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 (Primary Dx); [...] in this encounter Progress Notes * Yaneth aRhman APRN-SARAH - 11/04/2020 2:46 PM CDT Brisa Hogan is a 60 year old White/ female here for left hip pain. Severe OA left hip Hip replacement on hold due to thyroid cancer Had tramadol a few weeks ago; no help On mobic 7.5--no help Cries, can't sleep Wants pain medication Had recent oxycontin--helped her pain; had recent [place]--helped PEG: A Three Item Scale Assessing Pain [...] in the Blood 60 capsule 11 ??? [id number]-reurboeqc-ccph 333-133-5 MG tablet Take 1 (one) tablet [...] fluticasone propionate (FLONASE) 50 MCG/ACT nasal spray [place] 2 sprays into each nostril 16 g 0 ??? gabapentin (NEURONTIN) 300 MG capsule TAKE 1 CAPSULE BY MOUTH THREE TIMES A DAY 90 capsule 5 ??? [id number]-C-HYAL PO Take 1 tablet by mouth 3 times daily ??? levothyroxine (SYNTHROID) 112 MCG tablet Take 1 (one) tablet by mouth daily before breakfast Reasons: Underactive Thyroid, Cancer of Thyroid 30 tablet 11 ??? meloxicam (MOBIC) 7.5 MG tablet TAKE 1 TABLET BY MOUTH EVERY DAY 60 tablet 2 ??? [place]-3 Fatty Acids (FISH OIL) 1000 MG capsule [...] clear bilaterally, no wheezes, crackles or rubs SIDEHAND - no focal neurological deficit MSK - moves all extremities; wearing left hip brace LE - no edema SKIN - no rashes or lesions; no petechiae, ecchymosis, or jaundice to visible skin PSYCH - calm, congruent affect CODY Salcido documented in this encounter Plan of Treatment Upcoming Encounters Date Type Department Care Team (Late st Contact Info) Description 08/02/2024 2:20 PM IT SUPPORT ENGINEER Appointment [facility] [address] [place] [address] 08/02/2024 3:00 PM IT SUPPORT ENGINEER Office Visit [facility] - Hematology/Oncology [address] [place] [phone] Remi Beckett MD [address] [place] [phone] 08/18/2024 1:45 PM IT SUPPORT ENGINEER Office Visit [facility] - ENT [address] [place] [phone] Neri Delgado MD [address] [place] [address] 08/30/2024 2:20 PM IT SUPPORT ENGINEER Appointment [facility] [address] [place] [phone] documented as of this encounter Results * URINE DRUG SCREEN COMPREHENSIVE (11/11/2020 3:56 PM CDT) [facility] Amphetamines Screen Urine Negative Negative: < 1000 ng/mL 11/11/2020 4:50 PM CDT [facility] Barbiturates Screen Urine Negative Negative: < 200 ng/mL 11/11/2020 4:50 PM CDT [facility] Benzodiazepine Screen Urine Negative Negative: < 200 ng/mL 11/11/2020 4:50 PM CDT [facility] Opiates Urine Negative Negative: < 300 ng/mL 11/11/2020 4:50 PM CDT [facility] Cocaine Metabolites Urine Negative Negative: < 300 ng/mL 11/11/2020 4:50 PM CDT [facility] Phencyclidine Screen Urine Negative Negative: < 25 ng/ml 11/11/2020 4:50 PM CDT [facility] Cannabinoids Screen Urine Negative Negative: <50 ng/mL 11/11/2020 4:50 PM T [facility] Methadone Screen Urine Negative Negative: < 300 ng/mL 11/11/2020 4:50 PM [facility] Fentanyl Screen Urine Negative Negative: <1.0 ng/mL 11/11/2020 4:50 PM [facility] Urine URINE / Unknown Collection / Unknown 11/11/2020 3:56 PM CDT 11/11/2020 4:15 PM CDT [facility] - 11/11/2020 4:50 PM CDT The Urine Toxicology Screening Panel does not screen for Propoxyphene, Meprobamate, Carisoprodol, Trazodone, mctk-dck-fksxwob medications and/or volatiles (Acetone, Isopropanol, Methanol or Ethylene Glycol). Ethanol, Salicylate, Acetaminophen, Tricyclic Antidepressants and several therapeutic drugs may be individually assayed in serum or plasma specimen. Toxicology testing by the [facility] is an aid to medical diagnosis and treatment of patients. No documented chain of custody was maintained. Results are intended to be used for clinical purposes only. ? Yaneth Evan Rahman ACOUSTICAL [employer] SUPERVISOR-STAGE SETTING PAINTER APPRENTICE LAB - URINE CH EMISTRY ORDERABLES [facility] [address] [place] [address], [facility] [phone] documented in this encounter Visit Diagnoses Diagnosis intermediate current use of 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- Primary Encounter for long-term (current) use of other medications Pain management contract signed Reserved for inherently not codable concepts WITHOUT codable children Hip pain Pain in joint, pelvic region and thigh documented in this encounter Care Teams Detonator Assembler Relationship Specialty Start Date End Date Taniya Grimes MD [address] [facility] 2L DIV OF [facility] [place] [phone] PCP - General 07/01/20 05/10/22 Marylu Marie DO [address] [facility] 2[place] [address] Resident - PCP Student Resident 06/26/20 01/11/22 documented as of this encounter
--- OUTSIDE RECORDS SUMMARY | 2024-07-26 08:41 | XMS_ITS | Encounter Summary ---
Author Organization [facility] Health Address [address] [facility] [place] [address] Care Team Providers Care Clay Thrower Name Role Phone Marylu Marie DO Unavailable [phone] Taniya Grimes MD Primary Care Provider [phone] Reason for Visit * Reason Comments Follow-up Encounter Details Date Type Department Care Team (Latest Contact Info) Description 11/19/2020 10:45 AM CDT Office Visit [facility] - Orthopedics 12[address] [facility] [place] [address] Chitra Brooks MD [address] [phone] Primary osteoarthritis of left hip (Primary Dx) [...] in the Blood 60 capsule 11 ??? kuokzkl-xerytziad-ymqo 333-133-5 MG tablet Take 1 (one) tablet [...] fluticasone propionate (FLONASE) 50 MCG/ACT nasal spray [place] 2 sprays into each nostril 16 g 0 ??? gabapentin (NEURONTIN) 300 MG capsule TAKE 1 CAPSULE BY MOUTH THREE TIMES A DAY 90 capsule 5 ??? [id number]-[id number]-FOB-C-HYAL PO Take 1 tablet by mouth 3 times daily ??? levothyroxine (SYNTHROID) 112 MCG tablet Take 1 (one) tablet by mouth daily before breakfast Reasons: Underactive Thyroid, Cancer of Thyroid 30 tablet 11 ??? meloxicam (MOBIC) 7.5 MG tablet TAKE 1 TABLET BY MOUTH EVERY DAY 60 tablet 2 ??? [place]-3 Fatty Acids (FISH OIL) 1000 MG [...] st Contact Info) Description 08/02/2024 2:20 PM CHEESE WRAPPER Appointment [facility] [address] [place] [address] 08/02/2024 3:00 PM CHEESE WRAPPER Office Visit [facility] - Hematology/Oncology [address] [place] [phone] Remi Beckett MD [address] [place] [address] 08/18/2024 1:45 PM CHEESE WRAPPER Office Visit [facility] - ENT [address] [place] [phone] Neri Delgado MD [address] [place] [address] 08/30/2024 2:20 PM CHEESE WRAPPER Appointment [facility] [address] [place] [address] documented as of this encounter Visit Diagnoses Diagnosis Primary osteoarthritis of left hip- Primary Primary localized osteoarthrosis, pelvic region and thigh documented in this encounter Care Teams Clay Thrower Relationship Specialty Start Date End Date Taniya Grimes MD [address] [place] [address] 2L DIV OF [facility] [place] [address] PCP - General 07/01/20 05/10/22 Marylu Marie DO [address] [place] [address] 2L DIV OF [facility] [place] [address] Resident - PCP Student Resident 06/26/20 01/11/22 documented as of this encounter
--- OUTSIDE RECORDS SUMMARY | 2024-07-26 08:41 | XMS_ITS | Encounter Summary ---
Author Organization [facility] Health Address [address] [facility] [place] [address] Care Team Providers Care Tower Hand Name Role Phone Marylu Marie DO Unavailable [phone] Taniya Grimes MD Primary Care Provider Reason for Visit * Reason Onset Date Comments Medication Issue 12/06/2020 Encounter Details Date Type Department Care Team (Late st Contact Info) Description 12/06/2020 Telephone [facility] Orthopedic Surgery [address] [place] [address] Mary Beth Briceno, multiple tube winding machine operator Issue Social History Tobacco Use Types Packs/Day [...] st Contact Info) Description 08/02/2024 2:20 PM DOLL WIG MAKER Appointment [facility] [address] [place] [address] 08/02/2024 3:00 PM DOLL WIG MAKER Office Visit [facility] - Hematology/Oncology [address] [place] [phone] Remi Beckett MD [address] [place] [phone] 08/18/2024 1:45 PM DOLL WIG MAKER Office Visit [facility] E[facility] [address] [place] [phone] Neri Delgado MD [address] [place] [address] 08/30/2024 2:20 PM DOLL WIG MAKER Appointment [facility] [address] [place] [address] documented as of this encounter Visit Diagnoses Not on filedocumented in this encounter Care Teams Tower Hand Relationship Specialty Start Date End Date Taniya Grimes MD [address] 2L DIV OF [facility] [place] [address] PCP - General 07/01/20 05/10/22 Marylu Marie DO [address] 2L DIV OF [facility] [place] [address] Resident - PCP Student Resident 06/26/20 01/11/22 documented as of this encounter
--- OUTSIDE RECORDS SUMMARY | 2024-07-26 08:41 | XMS_ITS | Encounter Summary ---
Author Organization [facility] Health Address [address] [facility] [place] [address] Care Team Providers Care Embroidery Patternmaker Name Role Phone Marylu Marie DO Unavailable Taniya Grimes MD Primary Care Provider [phone] Reason for Visit * Reason Onset Date Comments MEDICATION REFILL 01/01/2021 Encounter Details Date Type Department Care Team (Late st Contact Info) Description 01/01/2021 Refill [facility] Endocrinology, Diabetes and Metabolism [address] [place] [address], [facility] [place] [phone] Yosi Bustamante MD [address] [place] [address] [place] [address] MEDICATION REFILL Social History Tobacco Use Types [...] st Contact Info) Description 08/02/2024 2:20 PM LEAD FORMER Appointment [facility] [address] [place] [address] 08/02/2024 3:00 PM LEAD FORMER Office Visit [facility] - Hematology/Oncology [address] [place] [phone] Remi Beckett MD [address] [place] [phone] 08/18/2024 1:45 PM LEAD FORMER Office Visit [facility] [address] [place] [phone] Neri Delgado MD [address] [place] [address] 08/30/2024 2:20 PM LEAD FORMER Appointment [facility] [address] [place] [address] documented as of this encounter Visit Diagnoses Diagnosis Postoperative hypothyroidism- Primary Postsurgical hypothyroidism documented in this encounter Care Teams Embroidery Patternmaker Relationship Specialty Start Date End Date Taniya Grimes MD [address] 2L DIV OF [facility] [place] [address] PCP - General 07/01/20 05/10/22 Marylu Marie DO [address] 2L DIV OF [facility] [place] [address] Resident - PCP Student Resident 06/26/20 01/11/22 documented as of this encounter
--- OUTSIDE RECORDS SUMMARY | 2024-07-26 08:41 | XMS_ITS | Encounter Summary ---
Author Organization [facility] Health Address [address] [facility] [place] [address] Care Team Providers Care Mental Health Nurse Name Role Phone Marylu Marie DO Unavailable Taniya Grimes MD Primary Care Provider Reason for Visit * Reason Onset Date Comments Medication Issue 11/06/2020 Vitamin D Encounter Details Date Type Department Care Team (Late st Contact Info) Description 11/06/2020 Telephone [facility] Endocrinology, Diabetes and Metabolism [address] [place] [address], [facility] [place] [phone] Yosi Bustamante MD [address] [place] [address] [place] [address] Medication Issue (Vitamin D) Social History Tobacco [...] st Contact Info) Description 08/02/2024 2:20 PM INSTRUMENTAL MUSICIAN Appointment [facility] [address] [place] [address] 08/02/2024 3:00 PM INSTRUMENTAL MUSICIAN Office Visit [facility] - Hematology/Oncology [address] [place] [phone] Remi Beckett MD [address] [place] [phone] 08/18/2024 1:45 PM INSTRUMENTAL MUSICIAN Office Visit [facility] [address] [place] [phone] Neri Delgado MD [address] [place] [address] 08/30/2024 2:20 PM INSTRUMENTAL MUSICIAN Appointment [facility] [address] [place] [address] documented as of this encounter Visit Diagnoses Not on filedocumented in this encounter Care Teams Mental Health Nurse Relationship Specialty Start Date End Date Taniay Grimes MD [address] [place] [address] DIV OF [facility] [place] [phone] PCP - General 07/01/20 05/10/22 Marylu Marie DO [address] [place] [address] Resident - PCP Student Resident 06/26/20 01/11/22 documented as of this encounter
--- OUTSIDE RECORDS SUMMARY | 2024-07-26 08:41 | XMS_ITS | Encounter Summary ---
Author Organization [facility] Health Address [address] [facility] [place] [address] Care Team Providers Care Sewer Hand Name Role Phone Marylu Marie DO Unavailable [phone] Taniya Grimes MD Primary Care Provider Encounter Details Date Type Department Care Team (Late st Contact Info) Description 01/09/2021 Orders Only [facility] Orthopedics [address] [facility], [place] [phone] Cesar Brooks MD 10[address] [facility] [address] [place], [place] [phone] Knee pain, unspecified chronicity, unspecified laterality Social [...] st Contact Info) Description 08/02/2024 2:20 PM TRUSTEE OF ESTATE Appointment [facility] [address] [place] [address] 08/02/2024 3:00 PM TRUSTEE OF ESTATE Office Visit [facility] - Hematology/Oncology [address] [place] [phone] Remi Beckett MD [address] [place] [phone] 08/18/2024 1:45 PM TRUSTEE OF ESTATE Office Visit [facility] - ENT [address] [place] [phone] Neri Delgado MD [address] [place] [phone] 08/30/2024 2:20 PM TRUSTEE OF ESTATE Appointment [facility] [address] [place] [phone] documented as of this encounter Results * [...] laterality documented in this encounter Care Teams Sewer Hand Relationship Specialty Start Date End Date Taniya Grimes MD [address] 2L DIV OF [facility] [place] [address] PCP - General 07/01/20 05/10/22 Marylu Marie DO [address] 2L DIV OF [facility] [place] [address] Resident - PCP Student Resident 06/26/20 01/11/22 documented as of this encounter
--- OUTSIDE RECORDS SUMMARY | 2024-07-26 08:41 | XMS_ITS | Encounter Summary ---
Author Organization [facility] Health Address [address] [facility] [place] [address] Care Team Providers Care Electrical Control Assembler Name Role Phone Marylu Marie DO Unavailable [phone] Taniya Grimes MD Primary Care Provider Encounter Details Date Type Department Care Team (Latest Contact Info) Description 11/19/2020 11:07 AM CDT - 11/19/2020 11:59 PM CDT Hospital Encounter [facility] DIAGNOSTIC RAD [facility] [address] [facility] [place] [address] Cesar Brooks MD 1031 [facility] 280 [place], [place] [phone] Discharge Disposition: Home or Self Care Social [...] the Blood 60 capsule 11 11/06/2020 05/22/2021 jkktbuo-faaazhkuh-uxcu 333-133-5 MG tabletIndications:Other hypoparathyroidism (HCC) Take 1 [...] fluticasone propionate (FLONASE) 50 MCG/ACT nasal spray [place] 2 sprays into each nostril 16 g 09/06/2019 04/11/2021 gabapentin (NEURONTIN) 300 MG capsuleIndications:Primar y osteoarthritis of left hip TAKE 1 CAPSULE BY MOUTH THREE TIMES A DAY 90 capsule 5 09/11/2020 03/25/2021 [id number]-[id number]-CHX-C-HY AL PO Take 1 tablet by mouth 3 times daily 06/13/2023 levothyroxine (SYNTHROID) 112 MCG tabletIndications:Hypothy roidism,Malignant Neoplasm of Thyroid Take 1 (one) tablet by mouth daily before breakfast Reasons: Underactive Thyroid, Cancer of Thyroid 30 tablet 11 10/14/2020 12/09/2020 meloxicam (MOBIC) 7.5 MG tablet TAKE 1 TABLET BY MOUTH EVERY DAY 60 tablet 2 07/16/2020 01/13/2021 [place]-3 Fatty Acids (FISH OIL) 1000 MG capsule [...] st Contact Info) Description 08/02/2024 2:20 PM COSTUME CUTTER Appointment [facility] [address] [place] [address] 08/02/2024 3:00 PM COSTUME CUTTER Office Visit [facility] - Hematology/Oncology [address] [place] [phone] Remi Beckett MD [address] [place] [phone] 08/18/2024 1:45 PM COSTUME CUTTER Office Visit [facility] - ENT [address] [place] [phone] Neri Delgado MD [address] [place] [address] 08/30/2024 2:20 PM COSTUME CUTTER Appointment [facility] [address] [place] [address] documented as of this encounter Procedures Procedure [...] is seen. There is severe arthritis with gexf-wd-qtpn contact superiorly, subchondral cysts, sclerosis, and osteophytes. [...] is seen. There is severe arthritis with dlsb-wx-inlo contact superiorly, subchondral cysts, sclerosis, and osteophytes. [...] thigh documented in this encounter Care Teams Electrical Control Assembler Relationship Specialty Start Date End Date Taniya Grimes MD [address] [place] [address] PCP - General 07/01/20 05/10/22 Marylu Marie DO [address] OF [facility] [place] [address] Resident - PCP Student Resident 06/26/20 01/11/22 documented as of this encounter
--- OUTSIDE RECORDS SUMMARY | 2024-07-26 08:41 | XMS_ITS | Encounter Summary ---
Author Organization [facility] Health Address [address] [facility] [place] [address] Care Team Providers Care Wool Washing Machine Operator Name Role Phone Marylu Marie DO Unavailable Taniya Grimes MD Primary Care Provider Reason for Visit * Reason Comments Lesions New patient, right e ar lesion Encounter Details Date Type Department Care Team (Late st Contact Info) Description 12/09/2020 3:00 PM CDT Office Visit [facility] General Dermatology [address] [place] [address], [facility] [place] [phone] Mee Ward MD [address] [place] [address] [place] [phone] Neoplasm of uncertain behavior of skin (Primary [...] PM CDT Thank you for visiting the [facility] Dermatology Clinic today! Please continue the following instructionsas we discussed in clinic today. 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 Ward. Mana Hauser M.D. [facility] Resident, PGY-3 Associated attestation - Mee [...] Order(s): PROC BIOPSY OF SKIN LESION Procedure(s): KS TANGNTL BX SKIN SINGLE LES Pre-Procedure Diagnose(s): [...] a patient labeled container and sent to [facility] Dermatopathology. Patient agrees to phone call for results and message if not available. Mana Hauser MD Associated attestation - Mee Ward MD - 12/09/2020 11:31 PM CDT I was present for the perez portions of the procedure. See procedure note. Mee Ward MD Clinical Computerized Machine Fabric Cutter of Dermatology [facility] documented in this encounter Plan of Treatment Upcoming Encounters Date Type Department Care Team (Late st Contact Info) Description 08/02/2024 2:20 PM PRE PRESS OPERATOR Appointment [facility] [address] [place] [address] 08/02/2024 3:00 PM PRE PRESS OPERATOR Office Visit [facility] Physician Group - Hematology/Oncology [address] [place] [phone] Remi Beckett MD [address] [place] [phone] 08/18/2024 1:45 PM PRE PRESS OPERATOR Office Visit [facility] Physician Group - ENT [address] [place] [phone] Neri Delgado MD [address] [place] [address] 08/30/2024 2:20 PM PRE PRESS OPERATOR Appointment [facility] [address] [place] [phone] documented as of this encounter Procedures Procedure Name Priority Date/Time Associated Diagnosis Comments KS TANGNTL BX SKIN SINGLE LES Routine 12/09/2020 3:50 PM CDT Neoplasm of uncertain behavior of skin DERMATOPATHOLOGY Routine 12/09/2020 3:33 AM CDT Neoplasm of uncertain behavior of skin documented in this encounter Results * KS TANGNTL BX SKIN SINGLE LES (12/09/2020 3:50 [...] a patient labeled container and sent to [facility] Dermatopathology. Patient agrees to phone call for results and message if not available. Mana Hauser MD Mee Ward MD PROCEDURE/NIDHI Mckay SURGICAL ORDERABLES * DERMATOPATHOLOGY (12/09/2020 3:33 AM CDT) Case Report Dermatopathology Report ? Case: [id number] ? Authorizing Provider: ??Mee Ward, ?? Collected: ? 12/09/2020 03:33 AM ? MD ? Ordering Location: ? [facility] ?Received: ?12/10/2020 05:22 AM ? Dermatology ? Pathologist: ? Mee Ward, ? MD ? Specimen: ?Skin, right ear antehelix ? 1 4:19 PM CDT DERMATOPATHOLOGY LABORATORY Final Diagnosis Specimen A. 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 The specimen consists of a shave biopsy measuring 6x5x2 mm. Jar 0. 1 4:19 PM CDT DERMATOPATHOLOGY LABORATORY Microscopic Description Specimen A. SKIN, right ear antehelix: There is epidermal hyperplasia overlying dilated blood vessels and fibroplasia. 1 4:19 PM CDT DERMATOPATHOLOGY LABORATORY Disclaimer An external and internal positive and negative controls are appropriate for the histochemical, immunohistochemical and immunofluorescence stain(s) in this case (if any), except where stated explicitly. The performance characteristics of the stain(s) cited in this report were developed and its performance characteristic determined by the Dermatopathology Laboratory at [facility], directed by Dr. Cheli Soliz. These tests need not be, and therefore are not, approved by the [place] Food and Drug Administration. The tests are used for clinical purposes. Billing Codes Specimen Charges Stain Charges 46942 1 1 4:19 PM CDT DERMATOPATHOLOGY LABORATORY Embedded Images 1 4:19 PM CDT DERMATOPATHOLOGY LABORATORY Pathology/Cytolo gy TISSUE SPECIMEN FROM SKIN / Unknown 12/09/2020 3:33 AM CDT 12/10/2020 5:22 AM CDT Mee Ward MD LAB - PATHOLOG Y/CYTOLOGY ORDERABLES DERMATOPATHOLOGY LABORATORY [facility] - Department of Dermatology [address], [address] [phone] documented in this encounter Visit Diagnoses Diagnosis [...] ear documented in this encounter Care Teams Wool Washing Machine Operator Relationship Specialty Start Date End Date Taniya Grimes MD [address] DIV OF [facility] [place] [place] [address] PCP - General 07/01/20 05/10/22 Marylu Marie DO [address] DIV OF [facility] [place] [address] Resident - PCP Student Resident 06/26/20 01/11/22 documented as of this encounter
--- OUTSIDE RECORDS SUMMARY | 2024-07-26 08:42 | XMS_ITS | Encounter Summary ---
Author Organization [facility] Health Address [address] [facility] [place] [address] Care Team Providers Care Property Field Adjuster Name Role Phone Brushy CreekMarylu jerry DO Unavailable [phone] Taniya Grimes MD Primary Care Provider Encounter Details Date Type Department Care Team (Latest Contact Info) Description 09/11/2020 2:00 PM AUDITING MANAGER - 09/11/2020 11:59 PM AUDITING MANAGER Hospital Encounter [facility] OP DRAW STATION [address] [place] [phone] Discharge Disposition: Home or Self Care Social [...] COVID-19? No / Unsure 09/11/2020 1:58 PM AUDITING MANAGER documented as of this encounter Functional Status [...] by mouth as needed 01/13/2021 albuterol HFA (PROVENTIL;VENTOLIN;IL OAIR) 108 (90 Base) MCG/ACT inhaler Inhale [...] times daily 30 capsule 1 08/29/2020 10/03/2020 gcsqtzg-vyxpgjjeu-hbox 333-133-5 MG tablet Take 1 tablet by [...] fluticasone propionate (FLONASE) 50 MCG/ACT nasal spray Sem[place] 2 sprays into each nostril 16 g 09/06/2019 04/11/2021 gabapentin (NEURONTIN) 300 MG capsuleIndications:Nicole favio osteoarthritis of left hip TAKE 1 CAPSULE BY MOUTH THREE TIMES A DAY 90 capsule 5 09/11/2020 03/25/2021 [id number]-[id number]-CWO-C -HYAL PO Take 1 tablet by mouth [...] EVERY DAY 60 tablet 2 07/16/2020 01/13/2021 [place]-3 Fatty Acids (FISH OIL) 1000 MG capsule [...] st Contact Info) Description 08/02/2024 2:20 PM AUDITING MANAGER Appointment [facility] [address] [place] [phone] 08/02/2024 3:00 PM AUDITING MANAGER Office Visit [facility] - Hematology/Oncology [address] [place] [phone] Remi Beckett MD [address] [place] [phone] 08/18/2024 1:45 PM AUDITING MANAGER Office Visit [facility] - ENT [address] [place] [address] [phone] Neri Delgado MD [address] [place] [phone] 08/30/2024 2:20 PM AUDITING MANAGER Appointment [facility] [address] [place] [phone] documented as of this encounter Procedures Procedure Name Priority Date/Time Associated Diagnosis Comments RENAL FUNCTION PANEL Routine 09/11/2020 2:13 PM AUDITING MANAGER Tracheal mass Lymphadenopathy of head and neck region TSH Routine 09/11/2020 2:13 PM AUDITING MANAGER High cholesterol T4 FREE Routine 09/11/2020 2:13 PM AUDITING MANAGER High cholesterol documented in this encounter Results * (ABNORMAL) RENAL FUNCTION PANEL (09/11/2020 2:13 PM AUDITING MANAGER) BUN 13 7 - 26 mg/dL 09/11/2020 2:56 PM [facility] Creatinine 0.7 0.6 - 1.2 mg/dL 09/11/2020 2:56 PM [facility] Sodium 143 136 - 145 mmol/L 09/11/2020 2:56 PM [facility] Potassium 3.9 3.5 - 4.5 mmol/L 09/11/2020 2:56 PM [facility] Chloride 104 98 - 107 mmol/L 09/11/2020 2:56 PM [facility] CO2 29 22 - 29 mmol/L 09/11/2020 2:56 PM [facility] Glucose 91 70 - 115 mg/dL 09/11/2020 2:56 PM [facility] Albumin 3.0(L) 3.4 - 5.0 g/dL 09/11/2020 2:56 PM [facility] Calcium 8.5 8.4 - 10.2 mg/dL 09/11/2020 2:56 PM [facility] Phosphorus 5.5(H) 2.3 - 4.7 mg/dL 09/11/2020 2:56 PM [facility] Anion Gap 14 8 - 18 09/11/2020 2:56 PM [facility] BUN/Creatinine Ratio 19 7 - 23 09/11/2020 2:56 PM [facility] Osmolality Calculated 296 270 - 300 mOsm/kg 09/11/2020 2:56 PM [facility] eGFR >60 >60 mL/min/1.7 3 m2 09/11/2020 2:56 PM [facility] Blood BLOOD SPECIMEN / Unknown Lab Venipuncture / Unknown 09/11/2020 2:13 PM AUDITING MANAGER 09/11/2020 2:29 PM AUDITING MANAGER Dionte Comer MD LAB - CHEMISTRY [facility] [address] [place] [address], [facility] [place] [phone] * T4 FREE (09/11/2020 2:13 PM AUDITING MANAGER) T4 Free 1.1 0.7 - 1.5 ng/dL 09/11/2020 3:14 PM [facility] Blood BLOOD SPECIMEN / Unknown Lab Venipuncture / Unknown 09/11/2020 2:13 PM AUDITING MANAGER 09/11/2020 2:29 PM AUDITING MANAGER Dionte Comer MD LAB - CHEMISTRY [facility] [address] [place] [address], [place] [phone] * TSH (09/11/2020 2:13 PM AUDITING MANAGER) TSH 2.526 0.350 - 4.940 uIU/mL 09/11/2020 3:14 PM AUDITING MANAGER [facility] Blood BLOOD SPECIMEN / Unknown Lab Venipuncture / Unknown 09/11/2020 2:13 PM AUDITING MANAGER 09/11/2020 2:29 PM AUDITING MANAGER Dionte Comer MD LAB - CHEMISTRY [facility] [address] [place] [address], [place] [phone] documented in this encounter Visit Diagnoses Diagnosis High cholesterol- Primary Pure hypercholesterolemia Tracheal mass Swelling, mass, 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 Lymphadenopathy of head and neck region documented in this encounter Care Teams Property Field Adjuster Relationship Specialty Start Date End Date Taniya Grimes MD [address] DIV OF [facility] [place] [address] PCP - General 07/01/20 05/10/22 Marylu Marie DO [address] DIV OF [facility] [place] [address] Resident - PCP Student Resident 06/26/20 01/11/22 documented as of this encounter
--- OUTSIDE RECORDS SUMMARY | 2024-07-26 08:42 | XMS_ITS | Encounter Summary ---
Author Organization [facility] Health Address [address] [facility] [place] [address] Care Team Providers Care Media Relations Manager Name Role Phone Marylu Marie DO Unavailable Taniya Grimes MD Primary Care Provider Reason for Visit * Reason Onset Date Comments Med Question 10/03/2020 Encounter Details Date Type Department Care Team (Late st Contact Info) Description 10/03/2020 Telephone [facility] General Internal Medicine [address] [place] [address], [place] [phone] Taniya Grimes MD [address] [place] [address] OF [facility] [place] [address] Med Question Social History Tobacco [...] COVID-19? No / Unsure 09/11/2020 1:58 PM TICKET WORKER documented as of this encounter Functional Status [...] refill 30 days of medication. Please have Edison discuss this medication with Dr. Bustamante at [...] st Contact Info) Description 08/02/2024 2:20 PM TICKET WORKER Appointment [facility] [address] [place] [phone] 08/02/2024 3:00 PM TICKET WORKER Office Visit [facility] - Hematology/Oncology [address] [place] [address] Remi Beckett MD [address] [place] [phone] 08/18/2024 1:45 PM TICKET WORKER Office Visit [facility] - ENT [address] [place] [phone] Neri Delgado MD [address] [place] [phone] 08/30/2024 2:20 PM TICKET WORKER Appointment [facility] [address] [place] [address] documented as of this encounter Visit Diagnoses Not on filedocumented in this encounter Care Teams Media Relations Manager Relationship Specialty Start Date End Date Taniya Grimes MD [address] [place] [address] [address] DIV OF [facility] [place] [address] PCP - General 07/01/20 05/10/22 Marylu Marie DO [address] [place] [address] [address] [address] Resident - PCP Student Resident 06/26/20 01/11/22 documented as of this encounter
--- OUTSIDE RECORDS SUMMARY | 2024-07-26 08:42 | XMS_ITS | Encounter Summary ---
Author Organization [facility] Health Address [address] [facility] [place] [address] Care Team Providers Care Delivery Agent Name Role Phone Marylu Marie DO Unavailable Taniya Grimes MD Primary Care Provider Reason for Visit * Reason Onset Date Comments Medication Prior Auth Request 10/30/2020 Encounter Details Date Type Department Care Team (Late st Contact Info) Description 10/30/2020 Telephone [facility] Endocrinology, Diabetes and Metabolism [address] [place] [address], [facility] [place] [phone] Yosi Bustamante MD [address] [place] [address] [place] [address] Medication Prior Auth Request Social History Tobacco [...] Prior auth request submitted on line at [employer]. Office notes submitted with request Yes. Waiting for insurance response. Cover My Meds perez:[email or web address] documented in this encounter Plan of Treatment Upcoming Encounters Date Type Department Care Team (Late st Contact Info) Description 08/02/2024 2:20 PM SANDWICH MACHINE OPERATOR Appointment [facility] [address] [place] [phone] 08/02/2024 3:00 PM SANDWICH MACHINE OPERATOR Office Visit [facility] - Hematology/Oncology [address] [place] [phone] Remi Beckett MD [address] [place] [phone] 08/18/2024 1:45 PM SANDWICH MACHINE OPERATOR [facility] [address] [place] [phone] Neri Delgado MD [address] [place] [phone] 08/30/2024 2:20 PM SANDWICH MACHINE OPERATOR Appointment [facility] [address] [place] [address] documented as of this encounter Visit Diagnoses Not on filedocumented in this encounter Care Teams Delivery Agent Relationship Specialty Start Date End Date Taniya Grimes MD [address] DIV OF [facility] [place] [address] PCP - General 07/01/20 05/10/22 Marylu Marie DO [address] [facility] [address] DIV OF [facility] [address] Resident - PCP Student Resident 06/26/20 01/11/22 documented as of this encounter
--- OUTSIDE RECORDS SUMMARY | 2024-07-26 08:42 | XMS_ITS | Encounter Summary ---
Author Organization [facility] Health Address [address] [facility] [place] [address] Care Team Providers Care Usability Strategist Name Role Phone Marylu Marie DO Unavailable Taniya Grimes MD Primary Care Provider Reason for Visit * Reason Onset Date Comments COVID-19 IMMUNIZATION/INJECTION 09/25/2020 Encounter Details Date Type Department Care Team (Late st Contact Info) Description 09/25/2020 Telephone [facility] Internal Medicine [address] [place] [address], [facility] [address] Taniya Grimes MD [address] [place] [address] [place] [address] COVID-19 IMMUNIZATION/INJECTION Social History Tobacco [...] COVID-19? No / Unsure 09/11/2020 1:58 PM PRODUCTION PLANNING MANAGER documented as of this encounter Functional [...] Covid-19 vaccine clinic resources. Did share the [facility] Hotline of [phone] and [facility] Dept at [phone]. Denies having any further concerns at this time. documented in this encounter Plan of Treatment Upcoming Encounters Date Type Department Care Team (Late st Contact Info) Description 08/02/2024 2:20 PM PRODUCTION PLANNING MANAGER Appointment [facility] [address] [place] [phone] 08/02/2024 3:00 PM PRODUCTION PLANNING MANAGER Office Visit [facility] - Hematology/Oncology [address] [place] [phone] Remi Beckett MD [address] [place] [phone] 08/18/2024 1:45 PM PRODUCTION PLANNING MANAGER Office Visit [facility] - ENT [address] [place] [phone] Neri Delgado MD [address] [place] [phone] 08/30/2024 2:20 PM PRODUCTION PLANNING MANAGER Appointment [facility] [address] [place] [phone] documented as of this encounter Visit Diagnoses Not on filedocumented in this encounter Care Teams Usability Strategist Relationship Specialty Start Date End Date Taniya Grimes MD [address] DIV OF [facility] [place] [address] PCP - General 07/01/20 05/10/22 Marylu Marie DO [address] [address] Resident - PCP Student Resident 06/26/20 01/11/22 documented as of this encounter
--- OUTSIDE RECORDS SUMMARY | 2024-07-26 08:42 | XMS_ITS | Encounter Summary ---
Author Organization [facility] Health Address [address] [facility] [place] [address] Care Team Providers Care Exchange Architect Name Role Phone Marylu Marie DO Unavailable Taniya Grimes MD Primary Care Provider Reason for Visit * Reason Comments Refill Request Encounter Details Date Type Department Care Team (Late st Contact Info) Description 09/11/2020 Refill [facility] Internal Medicine [address] [facility] [address] [place] [address] Marylu Marie DO [address] [facility] 2L [facility] [place] [address] Refill Request Social History Tobacco Use Types [...] COVID-19? No / Unsure 09/11/2020 1:58 PM ENTERPRISE SOFTWARE DEVELOPER documented as of this encounter Functional [...] Sita Cotter RN - 09/11/2020 4:11 PM ENTERPRISE SOFTWARE DEVELOPER Refill Request Brisa Hogan ELE: 07/11/20 NOV scheduled: none LRF: 09/06/19 Qty Disp: 30 # of refills: 11 Allergies: No Known Allergies Pended Medication Order: Requested Prescriptions Pending Prescriptions Disp Refills ??? atorvastatin (LIPITOR) 40 MG tablet [Pharmacy Med Name: ATORVASTATIN 40 MG TABLET] 30 tablet 11 Sig: TAKE 1 TABLET BY MOUTH EVERYDAY AT BEDTIME RPRISE SOFTWARE DEVELOPER documented in this encounter Plan of Treatment Upcoming Encounters Date Type Department Care Team (Late st Contact Info) Description 08/02/2024 2:20 PM ENTERPRISE SOFTWARE DEVELOPER Appointment [facility] [address] [place] [phone] 08/02/2024 3:00 PM ENTERPRISE SOFTWARE DEVELOPER Office Visit [facility] - Hematology/Oncology [address] [place] [phone] Remi Beckett MD [address] [place] [phone] 08/18/2024 1:45 PM ENTERPRISE SOFTWARE DEVELOPER Office Visit [facility] - ENT [address] [place] [phone] Neri Delgado MD [address] [place] [phone] 08/30/2024 2:20 PM ENTERPRISE SOFTWARE DEVELOPER Appointment [facility] [address] [place] [phone] documented as of this encounter Visit Diagnoses Diagnosis Hyperlipidemia, unspecified hyperlipidemia type documented in this encounter Care Teams Exchange Architect Relationship Specialty Start Date End Date Taniya Grimes MD [address] [facility] 2L DIV OF [facility] [place] [place] [address] PCP - General 07/01/20 05/10/22 Marylu Marie DO [address] [facility] 2L DIV OF [facility] [place] [address] Resident - PCP Student Resident 06/26/20 01/11/22 documented as of this encounter
--- OUTSIDE RECORDS SUMMARY | 2024-07-26 08:42 | XMS_ITS | Encounter Summary ---
Author Organization [facility] Health Address [address] [facility] [place] [address] Care Team Providers Care Budget Accountant Name Role Phone Marylu Marie DO Unavailable [phone] Taniya Grimes MD Primary Care Provider Reason for Visit * Reason Comments Neck Mass Encounter Details Date Type Department Care Team (Late st Contact Info) Description 09/11/2020 2:15 PM PHOTOGRAPHIC EQUIPMENT TECHNICIAN Office Visit [facility] Otolaryngology [address] [place] [phone] Dionte Comer MD [address] [place] [address] DEPT OF OTOLARYNGOLOGY [place], [place] [phone] Tracheal mass (Primary Dx); Complete paralysis of [...] COVID-19? No / Unsure 09/11/2020 1:58 PM PHOTOGRAPHIC EQUIPMENT TECHNICIAN documented as of this encounter Last Filed Vital Signs Vital Sign Reading Time Taken Comments Blood Pressure 123/74 09/11/2020 2:44 PM PHOTOGRAPHIC EQUIPMENT TECHNICIAN Pulse 82 09/11/2020 2:44 PM PHOTOGRAPHIC EQUIPMENT TECHNICIAN Temperature 36.1 ??C (97 ??F) 09/11/2020 2:44 PM PHOTOGRAPHIC EQUIPMENT TECHNICIAN Respiratory Rate - - Oxygen Saturation - - Inhaled Oxygen Concentration - - Weight 66.7 kg (147 lb) 09/11/2020 2:44 PM PHOTOGRAPHIC EQUIPMENT TECHNICIAN Height 157.5 cm (5' 2) 09/11/2020 2:44 PM PHOTOGRAPHIC EQUIPMENT TECHNICIAN Body Mass Index 26.89 09/11/2020 2:44 PM PHOTOGRAPHIC EQUIPMENT TECHNICIAN documented in this encounter Functional Status [...] 2 times daily 30 capsule 1 ??? vqfvdpm-cyfceqdne-tgoz 333-133-5 MG tablet Take 1 tablet by [...] fluticasone propionate (FLONASE) 50 MCG/ACT nasal spray [place] 2 sprays into each nostril 16 g 0 ??? gabapentin (NEURONTIN) 300 MG capsule TAKE 1 CAPSULE BY MOUTH THREE TIMES A DAY 90 capsule 5 ??? IMDBUV-NUVYMZDHR-VCH-C-HYAL PO Take 1 tablet by mouth 3 [...] MOUTH EVERY DAY 60 tablet 2 ??? [place]-3 Fatty Acids (FISH OIL) 1000 MG capsule [...] concerning for poorly differentiated thyroid cancer, staging [id number], overall stage IVb. Plan: - Referral to [...] Comer MD Otolaryngology-Head and Neck Surgery 09/11/20 OGRAPHIC EQUIPMENT TECHNICIAN documented in this encounter Plan of Treatment Upcoming Encounters Date Type Department Care Team (Late st Contact Info) Description 08/02/2024 2:20 PM PHOTOGRAPHIC EQUIPMENT TECHNICIAN Appointment [facility] [address] [place] [address] 08/02/2024 3:00 PM PHOTOGRAPHIC EQUIPMENT TECHNICIAN Office Visit [facility] - Hematology/Oncology [address] [place] [address] Remi Beckett MD [address] [place] [address] 08/18/2024 1:45 PM PHOTOGRAPHIC EQUIPMENT TECHNICIAN Office Visit [facility] - ENT [address] [place] [phone] Neri Delgado MD [address] [place] [address] 08/30/2024 2:20 PM PHOTOGRAPHIC EQUIPMENT TECHNICIAN Appointment [facility] [address] [place] [address] documented as of this encounter Visit Diagnoses Diagnosis Tracheal mass- Primary Swelling, mass, 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 Complete paralysis of right vocal cord Lymphadenopathy of head and neck region documented in this encounter Care Teams Budget Accountant Relationship Specialty Start Date End Date Taniya Grimes MD [address] [place] [address] 2L DIV [place] [phone] PCP - General 07/01/20 05/10/22 Marylu Marie DO [address] [place] [address] [address] DIV [place] [facility] [place] [address] Resident - PCP Student Resident 06/26/20 01/11/22 documented as of this encounter
--- OUTSIDE RECORDS SUMMARY | 2024-07-26 08:42 | XMS_ITS | Encounter Summary ---
Author Organization [facility] Health Address [address] [place] [address] Care Team Providers Care Sharepoint Net Developer Name Role Phone Marylu Marie DO Unavailable [phone] Taniya Grimes MD Primary Care Provider [phone] Encounter Details Date Type Department Care Team [...] COVID-19? No / Unsure 09/11/2020 1:58 PM MARKETING DATA SPECIALIST documented as of this encounter Functional [...] Contact Info) Description 08/02/2024 2:20 PM MARKETING DATA SPECIALIST Appointment [facility] [place] [address] 08/02/2024 3:00 PM MARKETING DATA SPECIALIST Office Visit [facility] Physician Group - Hematology/Oncology [address] [place] [phone] Remi Beckett MD [address] [place] [phone] 08/18/2024 1:45 PM MARKETING DATA SPECIALIST Office Visit [facility] - ENT [address] [place] [phone] Neri Delgado MD [address] [place] [address] 08/30/2024 2:20 PM MARKETING DATA SPECIALIST Appointment [facility] [address] [place] [address] documented as of this encounter Visit Diagnoses Not on filedocumented in this encounter Care Teams Sharepoint Net Developer Relationship Specialty Start Date End Date Taniya Grimes MD [address] [place] [address] [address] [address] PCP - General 07/01/20 05/10/22 Marylu Marie DO [address] [place] [address] [address] [address] Resident - PCP Student Resident 06/26/20 01/11/22 documented as of this encounter
--- OUTSIDE RECORDS SUMMARY | 2024-07-26 08:42 | XMS_ITS | Encounter Summary ---
Author Organization [facility] Health Address [address] [place] [address] Care Team Providers Care Criminal Court Judge Name Role Phone Marylu Marie DO Unavailable [phone] Taniya Grimes MD Primary Care Provider Reason for Visit * Reason Onset Date Comments Pain Hip 10/11/2020 Encounter Details Date Type Department Care Team (Late st Contact Info) Description 10/11/2020 Telephone [facility] Internal Medicine [address] [place] [address], [place] [address] Taniya Grmies MD [address] [place] [address] OF [facility] [place] [address] Pain Hip Social History Tobacco [...] COVID-19? No / Unsure 09/11/2020 1:58 PM OBSERVER HELPER documented as of this encounter Functional [...] relief'and states prefers oxycodone be ordered through [facility] [place].Instructed to apply ice to hip intermittently as can tolerate anduse heat to area intermittently but warned not to fall asleep on heating pad. Please advise. documented in this encounter Plan of Treatment Upcoming Encounters Date Type Department Care Team (Late st Contact Info) Description 08/02/2024 2:20 PM OBSERVER HELPER Appointment [facility] [address] [place] [address] 08/02/2024 3:00 PM OBSERVER HELPER Office Visit [facility] - Hematology/Oncology [facility] [place] [phone] Remi Beckett MD [address] [place] [address] 08/18/2024 1:45 PM OBSERVER HELPER Office Visit [facility] - ENT [address] [place] [phone] Neri Delgado MD [address] [place] [address] 08/30/2024 2:20 PM OBSERVER HELPER Appointment [facility] [address] [place] [address] documented as of this encounter Visit Diagnoses Not on filedocumented in this encounter Care Teams Criminal Court Judge Relationship Specialty Start Date End Date Taniya Grimes MD [address] 2[address] DIV OF [facility] [place] [address] PCP - General 07/01/20 05/10/22 Marylu Marie DO [address] 2[address] DIV OF [facility] [place] [address] Resident - PCP Student Resident 06/26/20 01/11/22 documented as of this encounter
--- OUTSIDE RECORDS SUMMARY | 2024-07-26 08:42 | XMS_ITS | Encounter Summary ---
Author Organization [facility] Health Address [address] [facility] [place] [address] Care Team Providers Care Superintendent Radio Communications Name Role Phone Marylu Marie DO Unavailable Taniya Grimes MD Primary Care Provider Reason for Visit * Reason Comments Refill Request Encounter Details Date Type Department Care Team (Late st Contact Info) Description 10/01/2020 Refill [facility] Internal Medicine [address] [facility] [address] [place] [address] Marylu Marie DO [address] [facility] 2L [facility] [place] [address] Refill Request Social History Tobacco Use Types [...] COVID-19? No / Unsure 09/11/2020 1:58 PM ED TECH documented as of this encounter Functional Status [...] st Contact Info) Description 08/02/2024 2:20 PM ED TECH Appointment [facility] [address] [place] [address] 08/02/2024 3:00 PM ED TECH Office Visit [facility] - Hematology/Oncology [address] [place] [phone] Remi Beckett MD [address] [place] [phone] 08/18/2024 1:45 PM ED TECH Office Visit [facility] - ENT [address] [place] [address] Neri Delgado MD [facility] [place] [address] 08/30/2024 2:20 PM ED TECH Appointment [address] [address] documented as of this encounter Visit Diagnoses Diagnosis Gastroesophageal reflux disease, unspecified whether esophagitis present- Primary Gastroesophageal reflux disease with esophagitis documented in this encounter Care Teams Superintendent Radio Communications Relationship Specialty Start Date End Date Taniya Grimes MD [address] [place] [address] 2[address] DIV OF [facility] [place] [address] PCP - General 07/01/20 05/10/22 Marylu Marie DO [address] [place] [address] 2[address] DIV OF [facility] [place] [address] Resident - PCP Student Resident 06/26/20 01/11/22 documented as of this encounter
--- OUTSIDE RECORDS SUMMARY | 2024-07-26 08:42 | XMS_ITS | Encounter Summary ---
Author Organization [facility] Health Address [address] [place] [address] Care Team Providers Care Construction Code Administrator Name Role Phone Marylu Marie DO Unavailable [phone] Taniya Grimes MD Primary Care Provider Reason for Visit * Reason Onset Date Comments MEDICATION REFILL 09/02/2020 Encounter Details Date Type Department Care Team (Late st Contact Info) Description 09/02/2020 Refill [facility] [address] [place] [address], [place] [address] Marylu Marie DO [address] [place] [address] [place] [address] MEDICATION REFILL Social History Tobacco Use Types [...] COVID-19? No / Unsure 08/17/2020 11:32 AM ANALYTICS LEAD documented as of this encounter Functional [...] Jessica Kenyon RN - 09/02/2020 2:32 PM ANALYTICS LEAD Refill Request Brisa Hogan ELE: 08/08/19 NOV scheduled: Visit date not found LRF: 03/08/20 Qty Disp: 30 # of refills: 5 Allergies: No Known Allergies Pended Medication Order: Requested Prescriptions Pending Prescriptions Disp Refills ??? cetirizine (ZYRTEC) 10 MG tablet 30 tablet 5 Sig: Take 1 (one) tablet by mouth once daily YTICS LEAD documented in this encounter Plan of Treatment Upcoming Encounters Date Type Department Care Team (Late st Contact Info) Description 08/02/2024 2:20 PM ANALYTICS LEAD Appointment [facility] [address] [place] [address] 08/02/2024 3:00 PM ANALYTICS LEAD Office Visit [facility] - Hematology/Oncology [address] [place] [phone] Remi Beckett MD [address] [place] [phone] 08/18/2024 1:45 PM ANALYTICS LEAD Office Visit [facility] - ENT [address] [place] [phone] Neri Delgado MD [address] [place] [address] 08/30/2024 2:20 PM ANALYTICS LEAD Appointment [facility] [address] [place] [address] documented as of this encounter Visit Diagnoses Diagnosis Allergic rhinitis, unspecified seasonality, unspecified trigger documented in this encounter Care Teams Construction Code Administrator Relationship Specialty Start Date End Date Taniya Grimes MD [address] [facility] 2L DIV OF [facility] [place] [address] PCP - General 07/01/20 05/10/22 Marylu Marie DO [address] [facility] 2L DIV OF [facility] [place] [address] Resident - PCP Student Resident 06/26/20 01/11/22 documented as of this encounter
--- OUTSIDE RECORDS SUMMARY | 2024-07-26 08:42 | XMS_ITS | Encounter Summary ---
Author Organization [facility] Health Address [address] [facility] [place] [address] Care Team Providers Care Corporate Paralegal Name Role Phone Marylu Marie DO Unavailable [phone] Taniya Grimes MD Primary Care Provider [phone] Reason for Visit * Reason Onset Date Comments Pain Hip 10/21/2020 Encounter Details Date Type Department Care Team (Late st Contact Info) Description 10/21/2020 Telephone [facility] [address] [place] [address], [place] [address] Taniya Grimes MD [address] [place] [address] OF [facility] [place] [address] Pain Hip Social History Tobacco [...] the pt back in 3 months. CB: [phone] documented in this encounter Plan of Treatment Upcoming Encounters Date Type Department Care Team (Late st Contact Info) Description 08/02/2024 2:20 PM QUALIFIED CRAFT WORKER ELECTRICIAN Appointment [facility] [address] [place] [address] 08/02/2024 3:00 PM QUALIFIED CRAFT WORKER ELECTRICIAN Office Visit [facility] - Hematology/Oncology [address] [place] [phone] Remi Beckett MD [address] [place] [phone] 08/18/2024 1:45 PM QUALIFIED CRAFT WORKER ELECTRICIAN Office Visit [facility] - ENT [address] [place] [phone] Neri Delgado MD [address] [place] [address] 08/30/2024 2:20 PM QUALIFIED CRAFT WORKER ELECTRICIAN Appointment [facility] [address] [place] [address] documented as of this encounter Visit Diagnoses Not on filedocumented in this encounter Care Teams Corporate Paralegal Relationship Specialty Start Date End Date Taniya Grimes MD [address] [place] [address] 2L DIV OF [facility] [place] [address] PCP - General 07/01/20 05/10/22 Marylu Marie DO [address] [place] [address] 2[place] [address] Resident - PCP Student Resident 06/26/20 01/11/22 documented as of this encounter
--- OUTSIDE RECORDS SUMMARY | 2024-07-26 08:42 | XMS_ITS | Encounter Summary ---
Author Organization [facility] Health Address [address] [facility] [place] [address] Care Team Providers Care Service Assistant Name Role Phone Marylu Marie DO Unavailable Taniya Grimes MD Primary Care Provider [phone] Reason for Visit * Reason Comments Thyroid Cancer Thyroid Problem hypothyroidism General hypocalcemia General hypoparathyroidism Thyroid Problem s/p thyroidectomy Encounter Details Date Type Department Care Team (Latest Contact Info) Description 10/14/2020 10:20 AM CDT Office Visit [facility] Endocrinology, Diabetes and Metabolism [address] [place] [address], [place] [phone] Yosi Bustamante MD [address] [place] [address] [place] [address] Postoperative hypothyroidism (Primary Dx); Thyroid cancer (HCC); [...] option 1 or you can send a [employer] message. Normal business hours are from 8:00 am to 4:30 pm Wednesday through Wednesday. Fax# is [phone]. To request refills, please contact your pharmacy who will reach out to us. If you have changes to your refill prescription, you will need to contact us directly at [phone] and select option 2 orsend your doctor a [employer] message. We request that all prescription refills be requested during regular office phone hours. If your prescription requires a prior authorization, it may take several days for us to get approval from [employer] company before we can refill your prescription. Please do not wait until you are completely out before contacting us. If you have an Insulin Pump, Meter or a Continuous Glucose Monitor, please bring it to every visit and present it to the motel front desk clerk staff when you arrive in clinic. If you have a medical emergency, please call 911 or go to the nearest Emergency Room. After hours urgent calls that cannot wait until phone lines are open on the next business day are given to the Director Of Convention Services physician pss delivery professional. Please call [phone] and identify yourself as a patient in our practice needing to speak to Director Of Convention Services. The transcribing machine operator will contact the physician pss delivery professional. You can generally expect a return call within 30 minutes. On weekends, physicians are seeing hospitalizedpatients and there may be a longer wait. Test and laboratory results: Our practice typically reports lab and test results through letters orMyChart, the [facility] online patient portal. Please allow 5 days from when your tests are completed to receive the results. IF GOING TO [employer] or [employer]-MUST TAKE LAB ORDER WITH YOU !! If you did not complete your labs at a [facility] facility or at a commercial lab ([employer], [employer]) then we may not have received the results. Please contact the lab and request that they are faxed to us. Visit our website at [email or web address] for additional information about [facility] and an interactive health encyclopedia. [facility]'s missed appointment policy is: Patients with 3 consecutively missed appointments OR 3 missed appointments in a 12 month period will no longer be seen by Endocrinology. They will be asked to seek consultation outside of [facility]. A missed appointment is defined as: ??? Arriving to a scheduled appointment too late to be seen (Patients who arrive to clinic later than their scheduled appointment time may not be seen) ??? Not showing up for an appointment ??? An appointment cancelled less than 24 hours in advance NEW OFFICE: [facility], 2nd Floor, [address] [place] [address] BP 118/72 (BP SITE: RIGHT ARM, BP [...] ?? Most chocolate (due to milk content). [place] powder and some dark chocolates are allowed. [...] without salt, except soybeans and (according to [facility] diet) afew other beans. ?? Unsalted [...] chicken or beef, oil and vinegar dressing [place] with Matzo crackers, plain peanut butter, jelly [...] Lymph Nodes (pN) pN1b . Resulting Agency [facility] Specimen Collected: 08/19/20 ??9:43 AM Last Resulted: [...] Gatherings with Friends and Family: ??? Attends Jain Services: ??? Active Member of Clubs or [...] in the Blood 60 capsule 11 ??? dqmvjxg-jlbuhheqz-lrat 333-133-5 MG tablet Take 1 (one) tablet [...] fluticasone propionate (FLONASE) 50 MCG/ACT nasal spray [place] 2 sprays into each nostril 16 g 0 ??? gabapentin (NEURONTIN) 300 MG capsule TAKE 1 CAPSULE BY MOUTH THREE TIMES A DAY 90 capsule 5 ??? QHKIRS-HEKQNKUGB-UWL-C-HYAL PO Take 1 tablet by mouth 3 times daily ??? levothyroxine (SYNTHROID) 112 MCG tablet Take 1 (one) tablet by mouth daily before breakfast Reasons: Underactive Thyroid, Cancer of Thyroid 30 tablet 11 ??? meloxicam (MOBIC) 7.5 MG tablet TAKE 1 TABLET BY MOUTH EVERY DAY 60 tablet 2 ??? [place]-3 Fatty Acids (FISH OIL) 1000 MG capsule [...] ?? Most chocolate (due to milk content). [place] powder and some dark chocolates are allowed. [...] chicken or beef, oil and vinegar dressing [place] with Matzo crackers, plain peanut butter, jelly [...] st Contact Info) Description 08/02/2024 2:20 PM ENDOSCOPY REGISTERED NURSE Appointment [facility] [address] [place] [address] 08/02/2024 3:00 PM ENDOSCOPY REGISTERED NURSE Office Visit [facility] - Hematology/Oncology [address] [place] [phone] Remi Beckett MD [address] [place] [address] 08/18/2024 1:45 PM ENDOSCOPY REGISTERED NURSE Office Visit [facility] - ENT [address] [place] [address] [place] [address] [place] [address] 08/30/2024 2:20 PM ENDOSCOPY REGISTERED NURSE Appointment [facility] [address] [place] [address] documented as of this encounter Visit Diagnoses Diagnosis Postoperative hypothyroidism- Primary Postsurgical hypothyroidism Thyroid cancer (HCC) Malignant neoplasm of thyroid gland Hypocalcemia Other hypoparathyroidism (HCC) documented in this encounter Care Teams Service Assistant Relationship Specialty Start Date End Date Taniya Grimes MD [address] [place] [address] 2L DIV OF [facility] [place] [address] PCP - General 07/01/20 05/10/22 Marylu Marie DO [address] [place] [address] 2L DIV OF [facility] [place] [address] Resident - PCP Student Resident 06/26/20 01/11/22 documented as of this encounter
--- OUTSIDE RECORDS SUMMARY | 2024-07-26 08:42 | XMS_ITS | Encounter Summary ---
Author Organization [facility] Health Address [address] [facility] [place] [address] Care Team Providers Care Storage And Backup Administrator Name Role Phone Marylu Marie DO Unavailable [phone] Taniya Grimes MD Primary Care Provider Reason for Visit * Reason Onset Date Comments MEDICATION REFILL 09/06/2020 Encounter Details Date Type Department Care Team (Late st Contact Info) Description 09/06/2020 Refill [facility] General Internal Medicine [address] [place] [address], [place] [address] Marylu Marie DO [address] [place] [address] [place] [address] MEDICATION REFILL Social History Tobacco Use Types [...] COVID-19? No / Unsure 09/11/2020 1:58 PM CORPORATE INVESTIGATOR documented as of this encounter Functional Status [...] Sita Cotter RN - 09/06/2020 2:26 PM CORPORATE INVESTIGATOR Refill Request Brisa Hogan ELE: 07/11/20 NOV scheduled: none LRF: 03/08/20 Qty Disp: 90 # of refills: 5 Allergies: No Known Allergies Pended Medication Order: Requested Prescriptions Pending Prescriptions Disp Refills ??? gabapentin (NEURONTIN) 300 MG capsule 90 capsule 5 Sig: TAKE 1 CAPSULE BY MOUTH THREE TIMES A DAY ORATE INVESTIGATOR documented in this encounter Plan of Treatment Upcoming Encounters Date Type Department Care Team (Late st Contact Info) Description 08/02/2024 2:20 PM CORPORATE INVESTIGATOR Appointment [facility] [address] [place] [address] 08/02/2024 3:00 PM CORPORATE INVESTIGATOR Office Visit [facility] - Hematology/Oncology [address] [place] [phone] Remi Beckett MD [address] [place] [phone] 08/18/2024 1:45 PM CORPORATE INVESTIGATOR Office Visit [facility] - ENT [address] [place] [phone] Neri Delgado MD [address] [place] [phone] 08/30/2024 2:20 PM CORPORATE INVESTIGATOR Appointment [facility] [address] [place] [phone] documented as of this encounter Visit Diagnoses Diagnosis Primary osteoarthritis of left hip Primary localized osteoarthrosis, pelvic region and thigh documented in this encounter Care Teams Storage And Backup Administrator Relationship Specialty Start Date End Date Taniya Grimes MD [address] DIV OF [facility] [place] [address] PCP - General 07/01/20 05/10/22 Marylu Marie DO [address] 2[address] DIV OF [facility] [place] [place] [address] Resident - PCP Student Resident 06/26/20 01/11/22 documented as of this encounter
--- OUTSIDE RECORDS SUMMARY | 2024-07-26 08:42 | XMS_ITS | Encounter Summary ---
Author Organization [facility] Health Address [address] [facility] [address] Care Team Providers Care Forensic Identification Specialist Name Role Phone Marylu Marie DO Unavailable [phone] Taniya Grimes MD Primary Care Provider [phone] Reason for Visit * Reason Onset Date Comments Pain Hip 10/11/2020 Encounter Details Date Type Department Care Team (Late st Contact Info) Description 10/11/2020 Nurse Triage [facility] General Internal Medicine [address] [place] [address], [place] [address] Marylu Marie DO [address] [place] [address] OF [facility] [place] [address] Pain Hip Social History Tobacco Use Types [...] COVID-19? No / Unsure 09/11/2020 1:58 PM WAX PATTERN ASSEMBLER documented as of this encounter Functional [...] states prefers oxycodone be ordered through [facility] in [place].Instructed to apply ice to hip intermittently as can tolerate anduse heat to area intermittently but warned not to fall asleep on heating pad. Please advise. documented in this encounter Plan of Treatment Upcoming Encounters Date Type Department Care Team (Late st Contact Info) Description 08/02/2024 2:20 PM WAX PATTERN ASSEMBLER Appointment [facility] [address] [place] [address] 08/02/2024 3:00 PM WAX PATTERN ASSEMBLER Office Visit [facility] - Hematology/Oncology [address] [place] [phone] Remi Beckett MD [address] [place] [phone] 08/18/2024 1:45 PM WAX PATTERN ASSEMBLER Office Visit [facility] - ENT [address] [place] [phone] Neri Delgado MD [address] [place] [address] 08/30/2024 2:20 PM WAX PATTERN ASSEMBLER Appointment [facility] [address] [place] [phone] documented as of this encounter Visit Diagnoses Not on filedocumented in this encounter Care Teams Forensic Identification Specialist Relationship Specialty Start Date End Date Taniya Grimes MD [address] [place] [address] 2L DIV OF [facility] [place] [phone] PCP - General 07/01/20 05/10/22 Marylu Marie DO [address] [place] [address] 2L DIV OF [facility] [place] [address] Resident - PCP Student Resident 06/26/20 01/11/22 documented as of this encounter
--- OUTSIDE RECORDS SUMMARY | 2024-07-26 08:42 | XMS_ITS | Encounter Summary ---
Author Organization [facility] Health Address [address] [facility] [place] [address] Care Team Providers Care Solution Advisor Name Role Phone Marylu Marie DO Unavailable Taniya Grimes MD Primary Care Provider Encounter Details Date Type Department Care Team (Late st Contact Info) Description 10/11/2020 Orders Only [facility] General Internal Medicine [address] [place] [address], [place] [address] Taniya Grimes MD [address] [place] [address] 2L DIV OF [employer] [place] [address] Hip pain Social History Tobacco [...] COVID-19? No / Unsure 09/11/2020 1:58 PM LACQUER PIN PRESS OPERATOR documented as of this encounter Functional [...] st Contact Info) Description 08/02/2024 2:20 PM LACQUER PIN PRESS OPERATOR Appointment [facility] [address] [place] [address] 08/02/2024 3:00 PM LACQUER PIN PRESS OPERATOR Office Visit [facility] - Hematology/Oncology [address] [place] [phone] Remi Beckett MD [address] [place] [phone] 08/18/2024 1:45 PM LACQUER PIN PRESS OPERATOR Office Visit [facility] [address] [place] [phone] Neri Delgado MD [address] [place] [address] 08/30/2024 2:20 PM LACQUER PIN PRESS OPERATOR Appointment [facility] [address] [place] [address] documented as of this encounter Visit Diagnoses Diagnosis Hip pain- Primary Pain in joint, pelvic region and thigh documented in this encounter Care Teams Solution Advisor Relationship Specialty Start Date End Date Taniya Grimes MD [address] [place] [address] 2L DIV OF [employer] [place] [phone] PCP - General 07/01/20 05/10/22 Marylu Marie DO [address] [place] [address] Resident - PCP Student Resident 06/26/20 01/11/22 documented as of this encounter
--- OUTSIDE RECORDS SUMMARY | 2024-07-26 08:43 | XMS_ITS | Encounter Summary ---
Author Organization [facility] Health Address [address] [facility] [place] [address] Care Team Providers Care White Shoe Examiner Name Role Phone Marylu Marie DO Unavailable [...] COVID-19? No / Unsure 08/15/2020 10:13 AM DESIGN PROJECT MANAGER documented as of this encounter Functional [...] st Contact Info) Description 08/02/2024 2:20 PM DESIGN PROJECT MANAGER Appointment [facility] [place] [address] 08/02/2024 3:00 PM DESIGN PROJECT MANAGER Office Visit [facility] - Hematology/Oncology [address] [place] [phone] Remi Beckett MD [address] [place] [phone] 08/18/2024 1:45 PM DESIGN PROJECT MANAGER Office Visit [facility] - ENT [address] [place] [phone] Neri Delgado MD [address] [place] [address] 08/30/2024 2:20 PM DESIGN PROJECT MANAGER Appointment [facility] [address] [place] [address] documented as of this encounter Visit Diagnoses Not on filedocumented in this encounter Care Teams White Shoe Examiner Relationship Specialty Start Date End Date Taniya Grimes MD [address] [place] [address] [address] [address] PCP - General 07/01/20 05/10/22 Marylu Marie DO [address] [place] [address] [address] [address] Resident - PCP Student Resident 06/26/20 01/11/22 documented as of this encounter
--- OUTSIDE RECORDS SUMMARY | 2024-07-26 08:43 | XMS_ITS | Encounter Summary ---
Author Organization [facility] Health Address [address] [place] [address] Care Team Providers Care Field Seismologist Name Role Phone Marylu Marie DO Unavailable [phone] Taniya Grimes MD Primary Care Provider Reason for Visit * Reason Onset Date Comments Spider Bite 08/08/2020 Encounter Details Date Type Department Care Team (Late st Contact Info) Description 08/08/2020 Telephone [facility] General Internal Medicine [address] [place] [address], [place] [address] Taniya Grimes MD [address] [place] [address] OF [facility] [place] [address] Spider Bite Social History Tobacco [...] No / Unsure 07/26/2020 11:45 AM HYDRAULIC JACK MECHANIC documented as of this encounter Functional [...] Esther Branch RN - 08/08/2020 8:58 AM HYDRAULIC JACK MECHANIC Pt calling requesting to speak to the pcp as she thinks that she was bit by a spider in the right ear. Pt states she was at [facility] ED last evening although was not seen as the wait time was too long. Triage instructed the pt that an ACS appt is necessary to evaluate the ear. Pt agreeable and transferred to scheduling. AULIC JACK MECHANIC documented in this encounter Plan of Treatment Upcoming Encounters Date Type Department Care Team (Late st Contact Info) Description 08/02/2024 2:20 PM HYDRAULIC JACK MECHANIC Appointment [facility] [address] [place] [address] 08/02/2024 3:00 PM HYDRAULIC JACK MECHANIC Office Visit [facility] - Hematology/Oncology [address] [place] [phone] Remi Beckett MD [address] [place] [phone] 08/18/2024 1:45 PM HYDRAULIC JACK MECHANIC Office Visit [facility] ENT [address] [place] [phone] Neri Delgado MD [address] [place] [address] 08/30/2024 2:20 PM HYDRAULIC JACK MECHANIC Appointment [facility] [address] [place] [address] documented as of this encounter Visit Diagnoses Not on filedocumented in this encounter Care Teams Field Seismologist Relationship Specialty Start Date End Date Taniya Grimes MD [address] DIV OF [facility] [place] [address] PCP - General 07/01/20 05/10/22 Marylu Marie DO [address] [place] [address] Resident - PCP Student Resident 06/26/20 01/11/22 documented as of this encounter
--- OUTSIDE RECORDS SUMMARY | 2024-07-26 08:43 | XMS_ITS | Encounter Summary ---
Author Organization [facility] Health Address [address] [facility] [place] [address] Care Team Providers Care Cuff Matcher Name Role Phone Marylu Marie DO Unavailable [phone] Taniya Grimes MD Primary Care Provider Encounter Details Date Type Department Care Team (Late st Contact Info) Description 08/07/2020 Testing Visit [facility] Otolaryngology [address] [place] [phone] Myra Farmer, DRAW OFF WORKER [address] [place] [address] [place] [address] Oropharyngeal dysphagia ; Complete paralysis [...] COVID-19? No / Unsure 07/26/2020 11:45 AM TOBACCO CLOTH RECLAIMER documented as of this encounter Functional Status [...] this encounter Progress Notes * Myra Ignacio, DRAW OFF WORKER - 08/07/2020 5:02 PM CST Images from the original note were not included. [facility] Speech Language Pathology Modified Barium Swallow Patient: Brisa Hogan Med Record Number [id number] Date of : 1960 Age: [age] year [...] in conjunction with radiology using lateral and fycpwyzl-nq-yghhqadrd views. The patient was given the following [...] swallowing strategies and/or recommendations and verbalize understanding. Mcfp Goal(s): Patient to tolerate least restrictive diet without complications. Plan: Continue with current diet. Careful ANA ROSA precautions Oral hygiene at least twice each day Myra Ignacio MA, CCC-DRAW OFF WORKER, [facility] Speech Language Pathologist Department of Otolaryngology- Head and Neck Surgery CCO CLOTH RECLAIMER documented in this encounter Plan of Treatment Upcoming Encounters Date Type Department Care Team (Late st Contact Info) Description 08/02/2024 2:20 PM TOBACCO CLOTH RECLAIMER Appointment [facility] [address] [place] [phone] 08/02/2024 3:00 PM TOBACCO CLOTH RECLAIMER Office Visit [facility] - Hematology/Oncology [address] [place] [phone] Remi Beckett MD [address] [place] [phone] 08/18/2024 1:45 PM TOBACCO CLOTH RECLAIMER Office Visit [facility] - ENT [address] [place] [phone] Neri Delgado MD [address] [place] [address] 08/30/2024 2:20 PM TOBACCO CLOTH RECLAIMER Appointment [facility] [address] [place] [address] documented as of this encounter Visit Diagnoses Diagnosis Oropharyngeal dysphagia- Primary Dysphagia, oropharyngeal phase 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
--- OUTSIDE RECORDS SUMMARY | 2024-07-26 08:43 | XMS_ITS | Encounter Summary ---
Author Organization [facility] Address [address] [facility] [place] [address] Care Team Providers Care Back Shoe Worker Name Role Phone Marylu Marie DO Unavailable [phone] Taniya Grimes MD Primary Care Provider Reason for Referral * Radiology Services (Routine) - Closed Specialty Diagnoses / Procedures Referred By Yuan robins Referred To Contact Radiology Diagnoses Other dysphagia Dysphagia, unspecified type Complete paralysis of right vocal cord Procedures FL SWALLOWING FUNCTION STUDY Nolvia Chun APRN-CNP [address] [place] [address] [facility] Diagnostic Rad [facility] [place] [address] Referral ID Status Reason Start Date Expiration Date Visits Re quested Visits Authorized [id number] Closed 07/25/2020 07/25/2021 1 1 ICAL SUPPORT MANAGER Reason for Visit * Radiology Services (Routine) - Closed Specialty Diagnoses / Procedures Referred By Yuan robins Referred To Contact Radiology Diagnoses Other dysphagia Dysphagia, unspecified type Complete paralysis of right vocal cord Procedures FL SWALLOWING FUNCTION STUDY Nolvia Chun APRN-CNP [address] [place] [address] [facility] Diagnostic Rad [address] [place] [address] Referral ID Status Reason Start Date Expiration Date Visits Re quested Visits Authorized [id number] Closed 07/25/2020 07/25/2021 1 1 Encounter Details Date Type Department Care Team (Latest Contact Info) Description 08/07/2020 2:00 PM CLINICAL SUPPORT MANAGER - 08/07/2020 11:59 PM CLINICAL SUPPORT MANAGER Hospital Encounter [facility] DIAGNOSTIC RAD [address] [place] [address] Nolvia Chun, NAILING MACHINE OPERATOR-MIDDLEWARE SYSTEMS ARCHITECT [address] [place] [address] Discharge Disposition: Home or Self Care Social [...] COVID-19? No / Unsure 07/26/2020 11:45 AM CLINICAL SUPPORT MANAGER documented as of this encounter Functional [...] by mouth as needed 01/13/2021 albuterol HFA (PROVENTIL;VENTOLIN;UT OAIR) 108 (90 Base) MCG/ACT inhaler Inhale [...] times daily 30 capsule 1 08/29/2020 10/03/2020 nactxnp-aqrgfmmsf-pqzy 333-133-5 MG tablet Take 1 tablet by [...] fluticasone propionate (FLONASE) 50 MCG/ACT nasal spray Story 2 sprays into each nostril 16 g 09/06/2019 04/11/2021 gabapentin (NEURONTIN) 300 MG capsuleIndications:Nicole stahl osteoarthritis of left hip TAKE 1 CAPSULE BY MOUTH THREE TIMES A DAY 90 capsule 5 03/08/2020 09/06/2020 [id number]-[id number]-QTD-C -HYAL PO Take 1 tablet by mouth 3 times daily 06/13/2023 levothyroxine (SYNTHROID) 112 MCG tablet Take 1 (one) tablet by mouth once daily 30 tablet 1 08/30/2020 10/14/2020 meloxicam (MOBIC) 7.5 MG tablet TAKE 1 TABLET BY MOUTH EVERY DAY 60 tablet 2 07/16/2020 01/13/2021 [place]-3 Fatty Acids (FISH OIL) 1000 MG capsule [...] Contact Info) Description 08/02/2024 2:20 PM CLINICAL SUPPORT MANAGER Appointment [facility] [address] [place] [address] 08/02/2024 3:00 PM CLINICAL SUPPORT MANAGER Office Visit [facility] - Hematology/Oncology [address] [place] [phone] Remi Beckett MD [address] [place] [phone] 08/18/2024 1:45 PM CLINICAL SUPPORT MANAGER Office Visit [facility] Group - ENT [address] [place] [phone] Neri Delgado MD [address] [place] [phone] 08/30/2024 2:20 PM CLINICAL SUPPORT MANAGER Appointment [facility] [address] [place] [address] documented as of this encounter Procedures Procedure Name Priority Date/Time Associated Diagnosis Comments FL SWALLOWING FUNCTION STUDY Routine 08/07/2020 3:25 PM CLINICAL SUPPORT MANAGER Other dysphagia Dysphagia, unspecified type Complete paralysis of right vocal cord documented in this encounter Results * FL SWALLOWING FUNCTION STUDY (08/07/2020 3:25 PM CLINICAL SUPPORT MANAGER) Anatomical Region Laterality Modality Chest Radiographic Ewa ging 08/07/2020 3:11 PM CLINICAL SUPPORT MANAGER Impressions 08/07/2020 3:16 PM CLINICAL SUPPORT MANAGER IMPRESSION: Fluoroscopic assistance was provided for a modified barium swallow test performed by Speech Therapy. Please see the Speech Therapy report for details. Report dictated by Jonathan Andre DO (residential sales associate). IDr. JOSHUA have personally reviewed and interpreted this examination/study. This report was electronically signed by JOSHUA HOUSE ??on 08/07/2020 3:16 PM . Narrative 08/07/2020 3:16 PM CLINICAL SUPPORT MANAGER EXAMINATION: Modified barium swallow HISTORY: R13.19: Other [...] Report dictated by Jonathan Andre DO (residential sales associate). Dr. JOSHUA Mckeon have personally reviewed and interpreted this examination/study. This report was electronically signed by JOSHUA HOUSE on 08/07/2020 3:16 PM . Nolvia Chun NAILING MACHINE OPERATOR-MIDDLEWARE SYSTEMS ARCHITECT FLUOROSCOPY ORDERA BLES documented in this encounter [...] $ Given - Contrast 08/07/2020 2:35 PM CLINICAL SUPPORT MANAGER 700 mg barium (LIQUID E-Z-PAQUE) 60 % suspension Oral, ONCE, 1 dose, On Wed08/07/20 at 1530, . WASTE DISPOSAL INSTRUCTIONS: Black Bin Disposal required. $ Given - Contrast 08/07/2020 2:35 PM CLINICAL SUPPORT MANAGER 20 mL barium (Varibar) 40 % paste PSTE Oral, ONCE, 1 dose, On Wed08/07/20 at 1530 $ Given - Contrast 08/07/2020 2:35 PM CLINICAL SUPPORT MANAGER 10 mL barium (VARIBAR) 40 % suspension Oral, ONCE, 1 dose, On Wed08/07/20 at 1530 $ Given - Contrast 08/07/2020 2:35 PM CLINICAL SUPPORT MANAGER 40 mL documented in this encounter Care Teams Back Shoe Worker Relationship Specialty Start Date End Date Taniya Grimes MD [address] 2[address] DIV OF [facility] [place] [address] PCP - General 07/01/20 05/10/22 Marylu Marie DO [address] 2[address] DIV OF [facility] [place] [address] Resident - PCP Student Resident 06/26/20 01/11/22 documented as of this encounter
--- OUTSIDE RECORDS SUMMARY | 2024-07-26 08:43 | XMS_ITS | Encounter Summary ---
Author Organization [facility] Address [address] [place] [address] Care Team Providers Care Social Work Therapist Name Role Phone Marylu Marie DO Unavailable [...] Expiration Date Visits Re quested Visits Authorized [id number] 1 1 Encounter Details Date Type Department Care Team (Late st Contact Info) Description 08/19/2020 7:33 AM ROPE TOW OPERATOR Anesthesia Event [facility] OP [address] [place] [address] Unruly Parker MD [facility] [address] [facility] [place] [address] Anesthesia Record Procedure Summary Procedure Name Responsible [...] visualization, CO2 Monitor 08/19/20 1410 by Norma Santana, MEDICAL IMAGING TECHNOLOGIST-LOFT WORKER HEAD 08/19/20 1544 by Norma Santana, MEDICAL IMAGING TECHNOLOGIST-LOFT WORKER HEAD Drain 08/19/20; 1507; Ana pierre MD; 1; Channel; Bulb; 19 Fr.; Bard; [id number]; [id number]; Right; Neck; General Anesthesia; 08/28/20; 1611; ENT 08/19/20 1507 by Sangita Barrow RN 08/28/20 1611 by Vincent Bird RN Drain 08/19/20; 1507; Ana pierre MD; 2; Channel; Bulb; 19 Fr.; Bard; [id number]; [id number]; Left; Neck; General Anesthesia; 08/29/20; 1133 08/19/20 1507 by Sangita Barrow RN 08/29/20 1133 by Nader Ross RN Drain 08/19/20; 1508; Ana pierre MD; 3; Open; None; 0.25in; [facility]; [place]; Other (Comment) (Central); Neck; General Anesthesia; 08/28/20; [...] ENT 08/19/20 1530 by Sangita Barrow RN 02/912 by Libia Yanez RN documented in this [...] Date Recorded PHQ2 TOTAL SCORE 1 11/25/2022 [facility] of Occupat ional Health - Occupational [...] from Anesthesia Care COMPLICATIONS: No complications documented. TOW OPERATOR * Maryjane Chapman MD - 08/19/2020 7:43 [...] Follow Up Needed COMPLICATIONS: No complications documented. TOW OPERATOR * Unruly Parker MD - 08/01/2020 3:33 [...] procedural Anesthetic Plan was discussed with the LOFT WORKER HEAD and resident. BMI, Height, Weight Tobacco History [...] taking for the 08/01/20 encounter (Hospital Encounter)with [facility] PAT ROOM 1. No current facility-administered medications [...] History of ischemic heart disease? no Recent MA with 60 days = very high risk of MACE, requires cardiac consultation History of MA > 60 days History of positive stress [...] 2 mg/dl? no RCRI correlation with MACE (www.[employer].com/fbgesey-rxegrwp-muaz-trywa-vzl-zwvkwvjhm-risk, originally validated by Barbara Sequeira Circulation. 1999;100:8909-6209) 0 Points - 0.4% risk 1 Point [...] does not have any CIEDs Information needed: (printer assistant, mode, indication for CIED, battery life, magnet function, PM dependence): Call PAT director or etcher printed circuit boards to discuss any patient with a CIED [...] which blood bank will automatically send to [facility]. [facility] requires a 2nd confirmatory T&S before releasing crossmatched blood) Additional Laboratory Testing: Labs ordered for DOS: - CBC w/o diff if ASA >2 OR expected blood loss >250 OR previously abnormal - BMP is ASA >2 OR taking diuretics, K+ supplements, GUSTABO-I, ARBs -OR- any RCRI (including high risk procedure) - for patients with DM, refer to PCP or sock lining stitcher for BG >200 - CMP (instead of [...] Anesthesiology and Critical Care 08/01/2020 3:33 PM TOW OPERATOR documented in this encounter Procedure Notes * Unruly Parker MD - 08/19/2020 2:20 PM CSTAssociated Order(s): ETT Placement Endotracheal Tube Placement: Patient Location: OR. Intubation Event Date/Time: 08/19/2020 2:10 PM Procedure: intubation ([id number]). Procedure Section: Sedation: under general anesthesia. Indications [...] PM. Staff Section Anesthesia Provider: Norma Santana APRN-LOFT WORKER HEAD, Performed the procedure Provider #1: Unruly Parker MD. Additional Comments: reintubated orally after having had ETT in tracheal incision. Under continuousgeneral anesthesia. TOW OPERATOR * Unruly Parker MD - 08/19/2020 8:34 AM CSTAssociated Order(s): ETT Placement Endotracheal Tube Placement: Patient Location: OR. Intubation Event Date/Time: 08/19/2020 7:45 AM Procedure: intubation ([id number]). Procedure Section: Sedation: under general anesthesia. Indications [...] tegaderms. Surgeon placed tegaderms over eyes. . 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] * [...] CO2 Monitor 08/19/20 1410 by Norma Santana APRN-LOFT WORKER HEAD 08/19/20 1544 by Norma Santana APRN-CRNA Drain 08/19/20; 1507; Ana Comer MD; 1; Channel; Bulb; 19 Fr.; Bard; [id number]; [id number]; Right; Neck; General Anesthesia 08/19/20 1507 by Sangita Mccall RN Drain 08/19/20; 1507; Ana oCmer MD; 2; Channel; Bulb; 19 Fr.; Bard; [id number]; [id number]; Left; Neck; General Anesthesia 08/19/20 1507 by Sangita Mccall RN Drain 08/19/20; 1508; Ana Comer MD; 3; Open; None; 0.25in; [facility]; [place]; Other (Comment) (Central); Neck; General Anesthesia 08/19/20 [...] report from the receiving PACUteam. SOCO Bran TOW OPERATOR documented in this encounter Plan of Treatment Upcoming Encounters Date Type Department Care Team (Late st Contact Info) Description 08/02/2024 2:20 PM ROPE TOW OPERATOR Appointment [facility] [address] [place] [address] 08/02/2024 3:00 PM ROPE TOW OPERATOR Office Visit [facility] - Hematology/Oncology [address] [place] [phone] Remi Beckett MD [address] [place] [address] 08/18/2024 1:45 PM ROPE TOW OPERATOR Office Visit [facility] - ENT [address] [place] [phone] Neri Delgado MD [address] [place] [address] 08/30/2024 2:20 PM ROPE TOW OPERATOR Appointment [facility] [address] [place] [address] documented as of this encounter Procedures Procedure Name Priority Date/Time Associated Diagnosis Comments ENDOTRACHEAL TUBE NOTE Routine 08/19/2020 2:20 PM ROPE TOW OPERATOR ENDOTRACHEAL TUBE NOTE Routine 08/19/2020 8:34 AM ROPE TOW OPERATOR documented in this encounter Results * ETT LINE PERFORMABLE (08/19/2020 2:20 PM ROPE TOW OPERATOR) Narrative Unruly Parker MD - 08/19/2020 2:20 PM ROPE TOW OPERATOR Unruly Parker MD ? 08/27/2020 ??7:46 AM Endotracheal Tube Placement: ? Patient Location: OR. Intubation Event Date/Time: ??08/19/2020 2:10 PM Procedure: intubation ([id number]). Procedure Section: ?? Sedation: under general anesthesia. [...] Staff Section ?? Anesthesia Provider: Norma Santana APRN-LOFT WORKER HEAD, Performed the procedure Provider #1: Unruly Parker MD. Additional Comments: reintubated orally after having had ETT in tracheal incision. Under continuous general anesthesia. Unruly Parker MD GENERAL ANESTHESIA O FORD * ETT LINE PERFORMABLE (08/19/2020 8:34 AM ROPE TOW OPERATOR) Narrative Unruly Parker MD - 08/19/2020 8:34 AM ROPE TOW OPERATOR Unruly Parker MD ? 08/27/2020 ??7:46 AM Endotracheal Tube Placement: ? Patient Location: OR. Intubation Event Date/Time: ??08/19/2020 7:45 AM Procedure: intubation ([id number]). Procedure Section: ?? Sedation: under general anesthesia. [...] AM. Staff Section ?? Anesthesia Provider: Norma Santana, MEDICAL IMAGING TECHNOLOGIST-LOFT WORKER HEAD Provider #1: Unruly Parker MD. Additional Comments: IV induction, then Dr. Comer did largyngoscopy and placed #6 nerve monitoring ETT after using LTA, ETT secured with pink tape and tegaderms. Surgeon placed tegaderms over eyes. . Unruly Parker MD GENERAL ANESTHESIA O FORD documented in this encounter Visit Diagnoses Not on filedocumented in this encounter Administered Medications Inactive Administered Medications - up to 3 most recent administrations Medication Order MAR Action Action Date Dose Rate Site 0.9% NaCl infusion Intravenous, CONTINUOUS PRN, Starting on Wed08/19/20 at 0800, Until Wed08/19/20 at 1600, Anesthesia Intra-op $ New Bag/Syringe 08/19/2020 8:00 AM ROPE TOW OPERATOR ceFAZolin (ANCEF) syringe 2,000 mg 2,000 mg (2 g), Intravenous, PRE-OP MULTIPLE, Starting on Wed08/19/20 at 0545, Until Wed08/19/20 at 1514, Administer 30 minutes prior to surgical incision. Administer over 3-5 minutes., Indication for anti-infective therapy: Surgical prophylaxis, Pre-op $ Given 08/19/2020 12:00 PM ROPE TOW OPERATOR 2 g $ Given 08/19/2020 8:00 AM ROPE TOW OPERATOR 2 g Dexamethasone Sod Phosphate PF injection Intravenous, PRN, Starting on Wed08/19/20 at 0846, Until Wed08/19/20 at 1600, Anesthesia Intra-op $ Given 08/19/2020 8:46 AM ROPE TOW OPERATOR 4 mg famotidine (PEPCID) injection PRN, Starting on Wed08/19/20 at 1531, Until Wed08/19/20 at 1600, Anesthesia Intra-op $ Given 08/19/2020 3:31 PM ROPE TOW OPERATOR 20 mg fentaNYL (PF) (SUBLIMAZE) injection Intravenous, PRN, Starting on Wed08/19/20 at 0728, Until Wed08/19/20 at 1600, Anesthesia Intra-op $ Given 08/19/2020 7:33 AM ROPE TOW OPERATOR 100 mcg $ Given 08/19/2020 7:28 AM ROPE TOW OPERATOR 100 mcg glycopyrrolate (ROBINUL) injection Intravenous, PRN, Starting on Wed08/19/20 at 0846, Until Wed08/19/20 at 1600, Anesthesia Intra-op $ Given 08/19/2020 9:23 AM ROPE TOW OPERATOR 0.4 mg $ Given 08/19/2020 8:46 AM ROPE TOW OPERATOR 0.4 mg $ Given 08/19/2020 8:09 AM ROPE TOW OPERATOR 0.4 mg HYDROmorphone HCl-NaCl 2-0.9 MG/10ML-% SOSY Intravenous, PRN, Starting on Wed08/19/20 at 0950, Until Wed08/19/20 at 1600, Anesthesia Intra-op $ Given 08/19/2020 2:54 PM ROPE TOW OPERATOR 1 mg $ Given 08/19/2020 1:21 PM ROPE TOW OPERATOR 0.5 mg $ Given 08/19/2020 12:39 PM ROPE TOW OPERATOR 0.5 mg lactated ringers infusion Intravenous, CONTINUOUS PRN, Starting on Wed08/19/20 at 0728, Until Wed08/19/20 at 1600, Anesthesia Intra-op $ New Bag/Syringe 08/19/2020 3:46 PM ROPE TOW OPERATOR $ New Bag/Syringe 08/19/2020 8:05 AM ROPE TOW OPERATOR $ New Bag/Syringe 08/19/2020 7:28 AM ROPE TOW OPERATOR lidocaine hcl (PF) (XYLOCAINE MPF) 2 % injection Infiltration, PRN, Starting on Wed08/19/20 at 0736, Until Wed08/19/20 at 1600, Anesthesia Intra-op $ Given 08/19/2020 7:36 AM ROPE TOW OPERATOR 100 mg Ondansetron HCl (ZOFRAN) injection Intravenous, PRN, Starting on Wed08/19/20 at 0846, Until Wed08/19/20 at 1600, Anesthesia Intra-op $ Given 08/19/2020 3:31 PM ROPE TOW OPERATOR 4 mg $ Given 08/19/2020 8:46 AM ROPE TOW OPERATOR 4 mg phenylephrine 100 mcg/mL injection Intravenous, PRN, Starting on Wed08/19/20 at 0809, Until Wed08/19/20 at 1600, Anesthesia Intra-op $ Given 08/19/2020 9:17 AM ROPE TOW OPERATOR 200 mcg $ Given 08/19/2020 8:21 AM ROPE TOW OPERATOR 200 mcg $ Given 08/19/2020 8:09 AM ROPE TOW OPERATOR 200 mcg phenylephrine 20 mg in 250 mL NACL 0.9% infusion CONTINUOUS PRN, Starting on Wed08/19/20 at 0927, Until Wed08/19/20 at 1600, Anesthesia Intra-op Rate Change 08/19/2020 1:12 PM ROPE TOW OPERATOR 0.03 mcg/kg/min 1.57 mL/hr Restarted 08/19/2020 12:25 PM ROPE TOW OPERATOR 0.05 mcg/kg/min 2.62 mL /hr Rate Change 08/19/2020 12:06 PM ROPE TOW OPERATOR 0.05 mcg/kg/min 2.62 m L/hr propofol (DIPRIVAN) injection Intravenous, PRN, Starting on Wed08/19/20 at 0736, Until Wed08/19/20 at 1600, Anesthesia Intra-op $ Given 08/19/2020 7:36 AM ROPE TOW OPERATOR 150 mg rocuronium (ZEMURON) injection Intravenous, PRN, Starting on Wed08/19/20 at 0736, Until Wed08/19/20 at 1600, Anesthesia Intra-op $ Given 08/19/2020 2:54 PM ROPE TOW OPERATOR 50 mg $ Given 08/19/2020 1:21 PM ROPE TOW OPERATOR 50 mg $ Given 08/19/2020 7:36 AM ROPE TOW OPERATOR 5 mg succinylcholine (ANECTINE) injection Intravenous, PRN, Starting on Wed08/19/20 at 0736, Until Wed08/19/20 at 1600, Anesthesia Intra-op $ Given 08/19/2020 7:36 AM ROPE TOW OPERATOR 100 mg sugammadex (BRIDION) injection PRN, Starting on Wed08/19/20 at 1530, Until Wed08/19/20 at 1600, Anesthesia Intra-op $ Given 08/19/2020 3:30 PM ROPE TOW OPERATOR 280 mg documented in this encounter Care Teams Social Work Therapist Relationship Specialty Start Date End Date Taniya Grimes MD [address] [facility] [place] [address] PCP - General 07/01/20 05/10/22 Marylu Marie DO [address] [facility] [place] [address] Resident - PCP Student Resident 06/26/20 01/11/22 documented as of this encounter
--- OUTSIDE RECORDS SUMMARY | 2024-07-26 08:43 | XMS_ITS | Encounter Summary ---
Author Organization [facility] Address [address] [facility] [place] [address] Care Team Providers Care Store Receiving Clerk Name Role Phone Marylu Marie DO Unavailable Taniya Grimes MD Primary Care Provider Reason for Visit * Radiology Services (Routine) - Closed Specialty Diagnoses / Procedures Referred By Yuan robins Referred To Contact MRI Diagnoses Neck mass Procedures MRI NECK SOFT TISSUE WWO CONT Dionte Comer MD [address] [place] [address] Referral ID Status Reason Start Date Expiration Date Visits Re quested Visits Authorized [id number] Closed 08/09/2020 02/07/2021 1 1 Encounter Details Date Type Department Care Team (Latest Contact Info) Description 08/17/2020 12:15 PM GRID MAKER - 08/17/2020 12:19 PM [facility] Hospital Encounter [facility] MRI [address] [place] [address] Dionte Comer MD [address] [place] [address] Discharge Disposition: Home or Self Care Social [...] COVID-19? No / Unsure 08/17/2020 11:32 AM GRID MAKER documented as of this encounter Functional Status [...] by mouth as needed 01/13/2021 albuterol HFA (PROVENTIL;VENTOLIN;KY OAIR) 108 (90 Base) MCG/ACT inhaler Inhale [...] times daily 30 capsule 1 08/29/2020 10/03/2020 rfonshn-bfybajeiz-pipg 333-133-5 MG tablet Take 1 tablet by [...] fluticasone propionate (FLONASE) 50 MCG/ACT nasal spray [place] 2 sprays into each nostril 16 g 09/06/2019 04/11/2021 gabapentin (NEURONTIN) 300 MG capsuleIndications:Nicole favio osteoarthritis of left hip TAKE 1 CAPSULE BY MOUTH THREE TIMES A DAY 90 capsule 5 03/08/2020 09/06/2020 LXRYYA-LOXWNTVVJ-DMQ-C -HYAL PO Take 1 tablet by mouth 3 times daily 06/13/2023 levothyroxine (SYNTHROID) 112 MCG tablet Take 1 (one) tablet by mouth once daily 30 tablet 1 08/30/2020 10/14/2020 meloxicam (MOBIC) 7.5 MG tablet TAKE 1 TABLET BY MOUTH EVERY DAY 60 tablet 2 07/16/2020 01/13/2021 Paul[place]-3 Fatty Acids (FISH OIL) 1000 MG capsule [...] st Contact Info) Description 08/02/2024 2:20 PM GRID MAKER Appointment [facility] [address] [place] [address] 08/02/2024 3:00 PM GRID MAKER Office Visit [facility] - Hematology/Oncology [address] [place] [phone] Remi Beckett MD [address] [place] [phone] 08/18/2024 1:45 PM GRID MAKER Office Visit [facility] - ENT [address] [place] [phone] Neri Delgado MD [address] [place] [address] 08/30/2024 2:20 PM GRID MAKER Appointment [facility] [address] [place] [address] documented as of this encounter Procedures Procedure Name Priority Date/Time Associated Diagnosis Comments MRI NECK SOFT TISSUE WWO CONT Routine 08/17/2020 1:39 PM GRID MAKER Neck mass documented in this encounter Results * MRI NECK SOFT TISSUE WWO CONT (08/17/2020 1:39 PM GRID MAKER) Anatomical Region Laterality Modality Head Magnetic Resonan ce 08/19/2020 7:32 AM GRID MAKER Impressions 08/19/2020 11:14 AM GRID MAKER IMPRESSION: 1.Corresponding to the abnormality seen on [...] 11:14 AM . Narrative 08/19/2020 11:14 AM GRID MAKER EXAMINATION: MRI of the brain without contrast [...] $ Given - Contrast 08/17/2020 1:40 PM GRID MAKER 7 mL documented in this encounter Care Teams Store Receiving Clerk Relationship Specialty Start Date End Date Taniya Grimes MD [address] [facility] OF [facility] [place] [address] PCP - General 07/01/20 05/10/22 Marylu Marie DO [address] [facility] [place] [address] Resident - PCP Student Resident 06/26/20 01/11/22 documented as of this encounter
--- OUTSIDE RECORDS SUMMARY | 2024-07-26 08:43 | XMS_ITS | Encounter Summary ---
Author Organization [facility] Address [address] [facility] [place] [address] Care Team Providers Care Breaker Layer Name Role Phone Marylu Marie DO Unavailable Taniya Grimes MD Primary Care Provider Reason for Visit * Radiology Services (Routine) - Closed Specialty Diagnoses / Procedures Referred By Yuan robins Referred To Contact MRI Diagnoses Neck mass Procedures MRI BRAIN WO CONTRAST Dionte Comer MD [address] [place] [address] [place] [address] Referral ID Status Reason Start Date Expiration Date Visits Re quested Visits Authorized [id number] Closed 08/09/2020 02/07/2021 1 1 Encounter Details Date Type Department Care Team (Latest Contact Info) Description 08/17/2020 12:20 PM TIME STUDY ANALYST - 08/17/2020 11:59 PM [facility] Hospital Encounter [facility] MRI [address] [place] [phone] Dionte Comer MD [address] [place] [address] [address]L DEPT OF OTOLARYNGOLOGY [place], [place] [id number] Discharge Disposition: Home or Self Care Social [...] COVID-19? No / Unsure 08/17/2020 11:32 AM TIME STUDY ANALYST documented as of this encounter Functional [...] by mouth as needed 01/13/2021 albuterol HFA (PROVENTIL;VENTOLIN;RI OAIR) 108 (90 Base) MCG/ACT inhaler Inhale [...] times daily 30 capsule 1 08/29/2020 10/03/2020 ezxzvny-ubemtwjqx-sqsb 333-133-5 MG tablet Take 1 tablet by [...] fluticasone propionate (FLONASE) 50 MCG/ACT nasal spray [place] 2 sprays into each nostril 16 g 09/06/2019 04/11/2021 gabapentin (NEURONTIN) 300 MG capsuleIndications:Nicole favio osteoarthritis of left hip TAKE 1 CAPSULE BY MOUTH THREE TIMES A DAY 90 capsule 5 03/08/2020 09/06/2020 ITCFGI-XLNTSQBMY-PBB-C -HYAL PO Take 1 tablet by mouth 3 times daily 06/13/2023 levothyroxine (SYNTHROID) 112 MCG tablet Take 1 (one) tablet by mouth once daily 30 tablet 1 08/30/2020 10/14/2020 meloxicam (MOBIC) 7.5 MG tablet TAKE 1 TABLET BY MOUTH EVERY DAY 60 tablet 2 07/16/2020 01/13/2021 [place]-3 Fatty Acids (FISH OIL) 1000 MG capsule [...] st Contact Info) Description 08/02/2024 2:20 PM TIME STUDY ANALYST Appointment [facility] [address] [place] [phone] 08/02/2024 3:00 PM TIME STUDY ANALYST Office Visit [facility] - Hematology/Oncology [address] [place] [phone] Remi Beckett MD [address] [place] [phone] 08/18/2024 1:45 PM TIME STUDY ANALYST Office Visit [facility] - ENT [address] [place] [phone] Neri Delgado MD [address] [place] [phone] 08/30/2024 2:20 PM TIME STUDY ANALYST Appointment [facility] [address] [place] [phone] documented as of this encounter Procedures Procedure Name Priority Date/Time Associated Diagnosis Comments MRI BRAIN WO CONTRAST Routine 08/17/2020 1:40 PM TIME STUDY ANALYST Neck mass documented in this encounter Results * MRI BRAIN WO CONTRAST (08/17/2020 1:40 PM TIME STUDY ANALYST) Anatomical Region Laterality Modality Head Magnetic Resonan ce 08/19/2020 7:32 AM TIME STUDY ANALYST Impressions 08/19/2020 11:14 AM TIME STUDY ANALYST IMPRESSION: 1.Corresponding to the abnormality seen on [...] 11:14 AM . Narrative 08/19/2020 11:14 AM TIME STUDY ANALYST EXAMINATION: MRI of the brain without contrast [...] neck documented in this encounter Care Teams Breaker Layer Relationship Specialty Start Date End Date Taniya Grimes MD [address] [place] [address] PCP - General 07/01/20 05/10/22 Marylu Marie DO [address] [place] [address] Resident - PCP Student Resident 06/26/20 01/11/22 documented as of this encounter
--- OUTSIDE RECORDS SUMMARY | 2024-07-26 08:43 | XMS_ITS | Encounter Summary ---
Author Organization [facility] Address [address] [place] [address] Care Team Providers Care Caster Helper Name Role Phone Marylu Marie DO Unavailable [phone] Taniya Grimes MD Primary Care Provider Reason for Visit * Auth/Cert Specialty Diagnoses / Procedures Referred By Yuan robins Referred To Contact Diagnoses 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 TRACHEAL MASS, HOARSENESS, RIGHT VOCAL CORD PARALYSIS, LYMPHADENECTOMY HEAD AND NECK Procedures LARYNGOSCOPY WITH MICROSCOPE DISSECTION NECK EXCISION/RESECTION/REPAIR TRACHEA Referral ID Status Reason Start Date Expiration Date Visits Re quested Visits Authorized [id number] 1 1 Encounter Details Date Type Department Care Team (Late st Contact Info) Description 08/19/2020 7:30 AM ACIDIZER HELPER - 08/19/2020 3:05 PM ACIDIZER HELPER Surgery [facility] [address] [place] [address] Dionte Comer MD [facility] [address] [place] [address] DIRECT LARYNGOSCOPY WITH BIOPSY Surgery Details Date/Time Status Location OR Service Patient Class Case Class Case Type Trauma Case? 08/19/2020 7:30 AM Posted [facility] OR OR 09 ENT L[facility] [place] Admit Surgical Panel 1 Procedure LRB Anes Op Region Wound Class Comments DIRECT LARYNGOSCOPY WITH BIOPSY N/A General Mouth Clean Contaminated TOTAL THYROIDECTOMY WITH STEVEN TRAL NECK DISSECTION, RIGHT AND LEFT NECK DISSECTIONS N/A General Neck Clean TRACHEAL TUMOR RESECTION N/A General Neck Clean Surgeon Surgeon Role Service Panel Dionte Comer MD Primary ENT 1 Comer, Dionte Conley MD Primary ENT 1 Dorian Merrill MD [...] COVID-19? No / Unsure 08/17/2020 11:32 AM ACIDIZER HELPER documented as of this encounter Last Filed Vital Signs Vital Sign Reading Time Taken Comments Blood Pressure 138/75 08/19/2020 6:15 AM ACIDIZER HELPER Pulse 58 08/19/2020 6:15 AM ACIDIZER HELPER Temperature 36.2 ??C (97.2 ??F) 08/19/2020 5:45 AM CS T Respiratory Rate 19 08/19/2020 6:15 AM ACIDIZER HELPER Oxygen Saturation 98% 08/19/2020 6:15 AM ACIDIZER HELPER Inhaled Oxygen Concentration - - Weight 69.9 kg (154 lb) 08/19/2020 5:45 AM ACIDIZER HELPER Height 154.9 cm (5' 1) 08/19/2020 5:45 AM ACIDIZER HELPER Body Mass Index 29.1 08/19/2020 5:45 AM ACIDIZER HELPER documented in this encounter Functional Status [...] Discharge Summary Elizabeth Caicedo 60 year old [id number] Admit Date: 08/19/2020 Discharge Date and time: [...] at that time. Call our clinic at [phone] to confirm or to reschedule that appointment. [...] 3 grams of acetaminophen (a component of Tylenol,[place], Percocet) over a 24 hour period. ?? [...] our office and/or call the ENT resident air cargo ground operations supervisor after hours if you develop fevers, chills, [...] nearest Emergency Room and call the hospital high pressure kettle operator at [phone] dial [phone] and ask for the ENT resident air cargo ground operations supervisor. Request an appointment with Speech Therapy? Yes [...] questions or concerns During business hours call: [phone] After 5 pm or on weekends call: and ask for the ENT resident air cargo ground operations supervisor. Fabian Flores MD IZER HELPER documented in this encounter Discharge Instructions * Discharge Instructions* Fabian Flores MD - 08/29/2020 7:43 AM ACIDIZER HELPER Follow up with Dr. Comer in 2 weeks on Wednesday09/11/20 at 2:15 PM. Obtain blood work (renal function panel) at that time. Call our clinic at [phone] to confirm or to reschedule that appointment. [...] 3 grams of acetaminophen (a component of Tylenol,[place], Percocet) over a 24 hour period. Diet: [...] our office and/or call the ENT resident air cargo ground operations supervisor after hours if you develop fevers, chills, [...] nearest Emergency Room and call the hospital high pressure kettle operator at [phone] dial [phone] and ask for the ENT resident air cargo ground operations supervisor. IZER HELPER documented in this encounter Medications at Time [...] by mouth as needed 01/13/2021 albuterol HFA (PROVENTIL;VENTOLIN;TX OAIR) 108 (90 Base) MCG/ACT inhaler Inhale [...] times daily 30 capsule 1 08/29/2020 10/03/2020 iaywzqx-uthrfstob-gdku 333-133-5 MG tablet Take 1 tablet by [...] fluticasone propionate (FLONASE) 50 MCG/ACT nasal spray [place] 2 sprays into each nostril 16 g 09/06/2019 04/11/2021 gabapentin (NEURONTIN) 300 MG capsuleIndications:Nicole favio osteoarthritis of left hip TAKE 1 CAPSULE BY MOUTH THREE TIMES A DAY 90 capsule 5 03/08/2020 09/06/2020 [id number]-NBFJYAEJG-LLF-C -HYAL PO Take 1 tablet by mouth 3 times daily 06/13/2023 levothyroxine (SYNTHROID) 112 MCG tablet Take 1 (one) tablet by mouth once daily 30 tablet 1 08/30/2020 10/14/2020 meloxicam (MOBIC) 7.5 MG tablet TAKE 1 TABLET BY MOUTH EVERY DAY 60 tablet 2 07/16/2020 01/13/2021 [place]-3 Fatty Acids (FISH OIL) 1000 MG capsule [...] questions, please contact the outpatient pharmacy at [phone]. Charity Kwan CPhT [facility] at [address] [place], [place] [address] Hours of Operation Wednesday - Wednesday: 8:00am to 6:00pm Wednesday: 9:00am to 1:00pm Epic: [facility] *Ensure the patient and clinic's nearby ZIP codes box is unchecked* IZER HELPER * Daiana Garcia RN - 08/29/2020 3:04 AM CST Problem: Fall Risk Goal: Fall risk and fall related injury risk are minimized (interventions related to the fall risk can be found in the flowsheet documentation) Outcome: Progressing Problem: Pain/Discomfort Goal: Patient exhibits reduced pain/discomfort as evidenced by pain scores Outcome: Progressing Problem: Thrombocytopenia/Bleeding Precautions Goal: Excessive bleeding will be minimized Outcome: Progressing IZER HELPER * Ros Gonzalez COTA - 08/28/2020 2:29 PM CST [facility] Physical Medicine and Rehabilitation Occupational Therapy Progress Note Patient: Elizabeth Caicedo Med Record Number: [id number] Date of : 1960 Age: [age] year [...] Patient will perform bed to chair?Independently ?? Usp Goal: Patient to be independent/baseline with functional mobility and self care and be able to safely discharge to prior level of care ?? If patient is discharged from the facility, this note serves as a discharge note if further occupational therapy visits did not occur. Following therapy session, patient left sitting EOB with good safety, daughter in room, call light close. IZER HELPER * Munira Bates DO - 08/28/2020 12:38 [...] attending Dr. Dianna Bates DO Endocrinology Fellow IZER HELPER * Vince Willingham MD - 08/28/2020 12:06 [...] miralax daily PT/OT, activity: AAT, PT/OT ordered HISTORICAL SOCIETY DIRECTOR: continue eval VTE Prophy: SCDs, q8h HSQ Endo/thyroid/parathyroid: f/u endo recs as above Drains: AGUSTÍN drains bilateral to bulb (LIS if not holding) Wound care: baci to incisions BID Stitches: bilateral necks, right medial incision opened 08/20 needs: likely needs Dispo: Floor Follow up: ENT- to be determined Endocrine- 6 weeks post surgery Vince Willingham MD Otolaryngology-Head and Neck Surgery 08/28/20 IZER HELPER * Vincent Bird RN - 08/28/2020 11:20 [...] Excessive bleeding will be minimized Outcome: Progressing IZER HELPER * Kareen Barrera PT - 08/28/2020 11:00 AM CST [facility] Physical Medicine and Rehabilitation PhysicalTherapy Progress Note Patient: Elizabeth Caicedo [facility] Record Number: [id number] Date of : 1960 Age: [age] year [...] AD Patient will ascend/descend 4 steps: Independent Manager Of Organizational Development Goal(s): Patient to be independent/baseline with functional [...] prior to getting up, RN, Vincent, informed. IZER HELPER * Kathleen Bates RN - 08/27/2020 10:11 [...] measures taken to prevent bleeding Outcome: Progressing IZER HELPER * Ying Tabares PT - 08/27/2020 1:19 PM CST [facility] Department of Physical Medicine & Rehabilitation Progress Note Patient: Elizabeth Caicedo [facility] Record Number: [id number] Date of : 1960 Age: [age] year [...] at this time. Will continue to follow. IZER HELPER * Charisma Truong, OT - 08/27/2020 10:59 AM CST [facility] Physical Medicine and Rehabilitation Occupational Therapy Progress Note Patient: Elizabeth Caicedo [facility] Record Number: [id number] Date of : 1960 Age: [age] year [...] Patient will perform bed to chair?Independently ?? Usp Goal: Patient to be independent/baseline with functional [...] within reach and with Christa FERRIS aware. IZER HELPER * Christa Crawford RN - 08/27/2020 7:47 [...] measures taken to prevent bleeding Outcome: Progressing IZER HELPER * Fabian Flores MD - 08/27/2020 7:27 [...] miralax daily PT/OT, activity: AAT, PT/OT ordered HISTORICAL SOCIETY DIRECTOR: continue eval VTE Prophy: SCDs, q8h HSQ [...] Head and Neck Surgery 08/27/20 7:27 AM IZER HELPER * Daiana Garcia RN - 08/26/2020 9:07 [...] as evidenced by pain scores Outcome: Progressing IZER HELPER * Jessica Merritt RN - 08/26/2020 4:12 PM CST Referrals sent for [facility]. Ketan with [facility] for DME needs. IZER HELPER * Munira Bates DO - 08/26/2020 3:29 PM CST [facility] Endocrinology Progress note Subjective: Taking in [...] 8.3* LFTs: Recent Labs Component Name 08/26/20 00408/25/20 0416 08/24/20 0005 03/07/20 1519 03/07/20 1519 AST - - - - 23 ALT - - - - 26 ALKPHOS - - - - 94 TBILI - - - - 0.5 ALB 2.8* 2.8* 2.9* - 3.8 - = values in this interval not displayed. Magnesium: No results for input(s): MG in the last 49729 hours. Phosphorus: Recent Labs Component Name 08/26/20 [...] Endocrinology Fellow D/w my attending Dr. Bustamante IZER HELPER Associated attestation - Yosi Bustamante MD - 08/26/2020 3:55 PM ACIDIZER HELPER I HAVE SEEN AND EXAMINED THE PATIENT [...] and non-pharmacological pain management strategies. Outcome: Progressing IZER HELPER * Lashon Barrow PT - 08/26/2020 11:33 AM CST [facility] Physical Medicine and Rehabilitation PhysicalTherapy Progress Note Patient: Elizabeth Caicedo Med Record Number: [id number] Date of : 1960 Age: [age] year [...] AD Patient will ascend/descend 4 steps: Independent Manager Of Organizational Development Goal(s): Patient to be independent/baseline with functional mobility and self care and be able to safely discharge to prior level of care ?? Update Treatment Plan: Continue as per plan If patient is discharged from the facility, this note serves as a discharge note if further physical therapy visits did not occur. Following therapy session, patient left in bed. IZER HELPER * Charisma Truong OT - 08/26/2020 10:09 AM CST [facility] Physical Medicine and Rehabilitation Occupational Therapy Progress Note Patient: Elizabeth Caicedo Med Record Number: [id number] Date of : 1960 Age: [age] year [...] will perform bed to chair Independently ?? Manager Of Organizational Development Goal: Patient to be independent/baseline with functional [...] within reach and with RN, Krissy aware. IZER HELPER * Juliette Parrish RD/CANDE - 08/26/2020 9:07 [...] medically able Monitor nutrition per nutrition guidelines. IZER HELPER * Vince Willingham MD - 08/26/2020 7:02 [...] miralax daily PT/OT, activity: AAT, PT/OT ordered HISTORICAL SOCIETY DIRECTOR: continue eval VTE Prophy: SCDs, q8h HSQ [...] Head and Neck Surgery 08/26/20 7:03 AM IZER HELPER * Daiana Garcia RN - 08/25/2020 11:16 PM CST Problem: Pain/Discomfort Goal: Patient exhibits reduced pain/discomfort as evidenced by pain scores 08/25/2020 2315 by Daiana Garcia RN Outcome: Progressing 08/25/2020 2312 by Daiana Garcia RN Outcome: Progressing Problem: Thrombocytopenia/Bleeding Precautions Goal: Excessive bleeding will be minimized Outcome: Progressing IZER HELPER * Krissy Mendoza RN - 08/25/2020 12:17 [...] to engage in desired activity. Outcome: Progressing IZER HELPER * Munira Bates DO - 08/25/2020 9:25 AM CST Endocrinology Plan of care Note Calcium trend reviewed Phosphorus increasing Ca corrected for albumin above 8 today. Recommendation: Would hold on the Iv Ca for today and adjust po regimen Increase [place] to 2 tabs TID Continue Calcitriol 0.5 mcg BID Continue levothyroxine 112 mcg daily Pathology pending Munira Bates DO Endocrinology Fellow IZER HELPER * Fabian Flores MD - 08/25/2020 9:08 [...] Tenderness to palpation around neck incisions. ASSESSMENT: Elizabeht Caicedo is a 60 year old female [...] miralax daily PT/OT, activity: AAT, PT/OT ordered HISTORICAL SOCIETY DIRECTOR: continue eval VTE Prophy: SCDs, q8h HSQ [...] Head and Neck Surgery 08/25/20 9:09 AM IZER HELPER * Samuel Pena RN - 08/25/2020 12:35 AM CST Problem: Tobacco Use Goal: Inpatient tobacco-use cessation counseling participation Outcome: Progressing Problem: Fall Risk Goal: Fall risk and fall related injury risk are minimized (interventions related to the fall risk can be found in the flowsheet documentation) Outcome: Progressing IZER HELPER * Colton Khan MD - 08/24/2020 4:11 [...] Head & Neck Surgery 08/24/2020 4:16 PM IZER HELPER * Libia Yanez RN - 08/24/2020 7:37 [...] find him. Report given to Lizy FERRIS. IZER HELPER * Fabian Flores MD - 08/24/2020 6:58 [...] in) - Continue modified consistency diet (per HISTORICAL SOCIETY DIRECTOR recs), may consider d/cing Dobhoff tube if [...] senokot daily PT/OT, activity: AAT, PT/OT ordered HISTORICAL SOCIETY DIRECTOR: saw 08/23-recommending modified consistency diet VTE Prophy: [...] Head and Neck Surgery 08/24/20 7:47 AM IZER HELPER * Lashon Barrow, PT - 08/23/2020 3:46 PM CST [facility] Physical Medicine and Rehabilitation Physical Therapy Initial Evaluation Note Patient: Elizabeth Caicedo [facility] Record Number: [id number] Date of : 1960 Age: [age] year [...] AD Patient will ascend/descend 4 steps: Independent Manager Of Organizational Development Goal(s): Patient to be independent/baseline with functional [...] alarm on and with calllight within reach IZER HELPER * Munira Bates, DO - 08/23/2020 2:08 [...] 35.7 40.2 BMP: Recent Labs Component Name 08/23/2042708/22/20234908/22/20 1105 NA 142 145 145 CL 98 99 99 CO2 32* 35* 33* BUN 7 6* 6* CREATININE 0.5* 0.6 0.5* CALCIUM 7.3* 7.6* 7.5* LFTs: Recent Labs Component Name 08/23/2042708/22/20 11003/07/20 1519 AST - - 23 ALT - - 26 ALKPHOS - - 94 TBILI - - 0.5 ALB 2.8* 3.0* 3.8 Magnesium: No results for input(s): MG in the last 70154 hours. Phosphorus: Recent Labs Component Name 08/22/20234908/22/20 [...] Endocrinology Fellow D/w my attending Dr. Bustamante IZER HELPER Associated attestation - Yosi Bustamante MD - 08/23/2020 2:32 PM ACIDIZER HELPER I HAVE SEEN AND EXAMINED THE PATIENT WITH THE ENDOCRINE FELLOW AND I AGREE WITH THE FINDINGS AND PLAN OF CARE DOCUMENTED BY THE ENDOCRINE FELLOW DATE OF SERVICE 08/23/2020 Signed electronically Yosi Bustamante MD Professor of Internal Medicine * Kym Priest OT - 08/23/2020 1:44 PM CST [facility] Physical Medicine and Rehabilitation Occupational Therapy Initial Evaluation Note Patient: Elizabeth Caicedo [facility] Record Number: [id number] Date of : 1960 Age: [age] year [...] Patient will perform bed to chair Independently Usp Goal: Patient to be independent/baseline with functional mobility and self care and be able to safely discharge to prior level of care If patient is discharged from the facility, this note serves as a discharge summary if further occupational therapy visits did not occur. Following therapy session, patient left in patient bedside chair, with call light within reach and with RNAndria. IZER HELPER * Wilian La MD - 08/23/2020 11:20 [...] floor - Start modified consistency diet (per HISTORICAL SOCIETY DIRECTOR recs) - PRN oxycodone for pain management [...] senokot daily PT/OT, activity: AAT, PT/OT ordered HISTORICAL SOCIETY DIRECTOR: manjinder 08/23-recommending modified consistency diet VTE Prophy: [...] Otolaryngology Head & Neck Surgery PGY-2 08/23/2020 IZER HELPER * Myra Ignacio, HISTORICAL SOCIETY DIRECTOR - 08/23/2020 8:50 AM CST [facility] Speech Language Pathology Speech Pathology Swallow Therapy Patient: Elizabeth Caicedo [facility] Record Number [id number] Date of : 1960 Age: [age] year [...] visits did not occur. Myra Ignacio MA, CCC-HISTORICAL SOCIETY DIRECTOR, [facility] Speech Language Pathologist Department of Otolaryngology- Head and Neck Surgery IZER HELPER * Munira Bates, DO - 08/22/2020 10:25 AM CST [facility] Endocrinology Progress note Subjective: Sleeping, not present this am when seen, d/w primary team on phone Objective: Vitals: BP 170/86 Pulse 67 Temp 98.9 ??F (37.2 ??C) (Oral) Resp 9 Ht 5' 1 (1.549 m) Wt 154 lb (69.9 kg) SpO2 93% BMI 29.1 kg/m2 Exam: Gen: sleeping, no distress, drains in place Data: CBC: Recent Labs Component Name 08/21/20234308/20/20232308/19/20 234 WBC 10.3 12.6* 15.3* RBC 3.94 4.41 [...] results for input(s): MG in the last 39976 hours. Phosphorus: Recent Labs Component Name 08/21/20234308/20/20232308/19/208 [...] Endocrinology Fellow D/w my attending Dr. Bustamante IZER HELPER Associated attestation - Yosi Bustamante MD - 08/22/2020 11:00 AM ACIDIZER HELPER I HAVE SEEN AND EXAMINED THE PATIENT WITH THE ENDOCRINE FELLOW AND I AGREE WITH THE FINDINGS AND PLAN OF CARE DOCUMENTED BY THE ENDOCRINE FELLOW DATE OF SERVICE 08/22/2020 Signed electronically Yosi Bustamante MD Professor of Internal Medicine * Beatriz Aguero RN - 08/22/2020 10:01 AM CST A Chart Review has been conducted by Case Management. Insurance: [facility]- Anticipated level of care at discharge: Unknown Anticipate Home with Home Care Pending Therapy evaluations when appropriate per ENT. Discharge Plan: Anticipate Home with Home Care Basic Needs Assessment (BNA) Score: 7 PCP: Taniya Grimes MD ; Pager: [phone]; Per nursing assessments: 08/19/20 admit 60 year [...] and thyroid mass with tracheal involvement. Transportation ([facility]): Pending DC disposition [employer] Dial Polisher/Support: [employer] Spouse Home/Functional Status: Functional and Cognitive Status [...] For any questions or needs please contact: Cloth Neutralizer Name/Phone number: Beatriz Aguero RN., ICU x [phone] IZER HELPER * Myra Ignacio SLP - 08/22/2020 9:41 AM CST [facility] Physical Medicine and Rehabilitation Speech Therapy Bedside Swallow Evaluation Patient: Elizabeth Caicedo [facility] Record Number: [id number] Date of : 1960 Age: [age] year [...] no further need for assessment. IMPRESSIONS: Elizabeth Caicedo presents with oropharyngeal dysphagia secondary to [...] demonstrate understanding of swallow guidelines and strategies. Usp Goal (s): Patient to be independent/baseline with [...] least twice each day Myra Ignacio MA, CCC-HISTORICAL SOCIETY DIRECTOR, [facility] Speech Language Pathologist Department of Otolaryngology- Head and Neck Surgery IZER HELPER * Wilian La MD - 08/22/2020 7:24 [...] PT/OT, activity: AAT, hold PT/OT for now HISTORICAL SOCIETY DIRECTOR: TBD VTE Prophy: SCDs, q8h HSQ Endo/thyroid/parathyroid: f/u endo recs as above Drains: AGUSTÍN drains bilateral to LIS Wound care: baci to incisions BID Stitches: bilateral necks, right medial incision opened 08/20 Trach: none SW needs: likely needs Dispo: 3ICU F/u: ENT- to be determined Endocrine- 6 weeks post surgery Sharif La MD Otolaryngology Head & Neck Surgery PGY-2 08/22/2020 IZER HELPER * Munira Bates DO - 08/21/2020 4:27 [...] 43.7 43.5 BMP: Recent Labs Component Name 08/20/20 23208/19/20 2348 08/01/20 1627 NA 136 137 141 CL 98 103 100 CO2 30* 24 32* BUN 7 10 12 CREATININE 0.7 0.7 0.8 CALCIUM 8.2* 7.7* 9.4 LFTs: Recent Labs Component Name 03/07/20 1519 AST 23 ALT 26 ALKPHOS 94 TBILI 0.5 ALB 3.8 Magnesium: No results for input(s): MG in the last 90742 hours. Phosphorus: Recent Labs Component Name 08/20/20 [...] follow up arrangements Munira Bates DO Endocrinology IZER HELPER Associated attestation - Yosi Bustamante MD - 08/21/2020 8:05 PM ACIDIZER HELPER I HAVE SEEN AND EXAMINED THE PATIENT [...] [] vitamin D (ergocalciferol) (DRISDOL) 1.25 MG (24151 UT) capsule 50,000 Units, Oral, Once CONTINUOUS [...] W infused over 12 hours), Vit. D 10292 Units x1 Daily Labs: CBC, BMP, Mg, Phos daily, q6h iCal q12 hours- calcium, albumin, phosphorous, magnesium Other labs- thyroglobulin reflex profile, vitamin D Diet: NPO for now Bowel Regimen: senokot daily PT/OT, activity: AAT, hold PT/OT for now HISTORICAL SOCIETY DIRECTOR: TBD VTE Prophy: SCDs, q8h HSQ Endo/thyroid/parathyroid: f/u endo recs as above Drains: AGUSTÍN drains bilateral to LIS Wound care: baci to incisions BID Stitches: bilateral necks, right medial incision opened 08/20 Trach: none SW needs: likely needs HH Dispo: 3ICU F/u: ENT- to be determined Endocrine- 6 weeks post surgery Isa Jimenez MD IZER HELPER * Fabian Flores MD - 08/20/2020 8:09 [...] PT/OT, activity: AAT, hold PT/OT for now HISTORICAL SOCIETY DIRECTOR: TBD VTE Prophy: SCDs, q8h HSQ Endo/thyroid/parathyroid: will consult Endocrine regarding calcium levels, thyroid replacement, appreciate recs Drains: AGUSTÍN drains bilateral to LIS Wound care: baci to incisions BID Stitches: bilateral necks, right medial incision opened at bedside today Trach: none SW needs: likely needs HH Dispo: 3ICU Fabian Flores MD PGY-3 Otolaryngology - Head and Neck Surgery 08/20/20 8:27 AM IZER HELPER * Mariah King RN - 08/20/2020 4:57 AM CST Ongoing IZER HELPER documented in this encounter H&P Notes * [...] COMPLEX) tablet Take by mouth DAILY. ??? vndnmjm-qslimmawd-gmha 333-133-5 MG tablet Take 1 tablet by [...] fluticasone propionate (FLONASE) 50 MCG/ACT nasal spray [place] 2 sprays into each nostril 16 g 0 ??? gabapentin (NEURONTIN) 300 MG capsule TAKE 1 CAPSULE BY MOUTH THREE TIMES A DAY (Patient takingdifferently: Take 300 mg by mouth 3 times daily ) 90 capsule 5 ??? LEIUIJ-MWDNGTRJN-ZFS-C-HYAL PO Take 1 tablet by mouth 3 times daily ??? meloxicam (MOBIC) 7.5 MG tablet TAKE 1 TABLET BY MOUTH EVERY DAY 60 tablet 2 ??? [place]-3 Fatty Acids (FISH OIL) 1000 MG capsule [...] noted in the HPI and per medical unit secretary notes PHYSICAL EXAM BP 138/75 Pulse 58 [...] in chart Resident signature: Isa Jimenez MD IZER HELPER Associated attestation - Dionte Comer MD - 08/19/2020 7:14 AM ACIDIZER HELPER I saw and examined the patient on [...] U INPATIENT Endocrinology Consultation Note Patient Name: Elziabeth Caicedo PCP: Tnaiya Grimes MD Date of Admission: 08/19/2020 Date [...] me she still needs to see the lead sprinkler. + smoker Denies family hx of thyroid [...] No Yes Sig: Take by mouth DAILY. SYIIFK-RZBWZYSAC-MAG-C-HYAL PO 08/17/2020 Yes No Sig: Take 1 tablet by mouth 3 times daily [place]-3 Fatty Acids (FISH OIL) 1000 MG capsule [...] Take 1 tablet by mouth at bedtime jvgpvfm-soqrtcxvj-jcyp 333-133-5 MG tablet 08/17/2020 Yes No Sig: [...] spray 08/19/2020 at 0330 Yes Yes Sig: [place] 2 sprays into each nostril gabapentin (NEURONTIN) [...] fluticasone propionate (FLONASE) 50 MCG/ACT nasal spray [place] 2 sprays into each nostril ??? gabapentin [...] extremities well CBC: Recent Labs Component Name 08/19/20 2348 08/01/20 1627 03/07/20 1519 WBC 15.3* 9.0 7.9 [...] results for input(s): MG in the last 71660 hours. Phosphorus: Recent Labs Component Name 08/19/20 2348 PHOS 6.5* Thyroid studies: Lab results smartLinks are not currently available Recent Labs Component Name 03/07/20 1519 HGBA1C 5.5 Recent Labs Component Name 03/07/20 1519 TSH 1.520 No results for input(s): MICROALBCREA in the last 02322 hours. Recent Labs Component Name 03/07/20 1519 HGBA1C 5.5 Recent Labs Component Name 08/19/20 2348 08/01/20 1627 03/07/20 1519 POTASSIUM 4.5 3.9 3.9 CO2 24 32* 33* BUN 10 12 13 CREATININE 0.7 0.8 0.8 GLUCOSE 204* 82 57* CALCIUM 7.7* 9.4 8.8 Recent Labs Component Name 03/07/20 1519 CHOL 150 TRIG 93 HDL 51 LDLCALC 80 FINE NEEDLE ASPIRATION - THYROID (STL): [id number] Order: [id number] Collected: 04/18/2020 ??4:07 PM Status: Final result ?Visible to patient: No (not released) Dx: Thyroid nodule Component Specimen Adequacy Adequate cellularity for evaluation. Final Diagnosis Thyroid nodule, right, US-FNA: - Benign - Consistent with benign follicular nodule FINE NEEDLE ASPIRATION - THYROID (STL): [id number] Order: [id number] Collected: 08/01/2020 ??2:51 PM Status: Final result [...] were determined by the Histopathology [facility] of [facility]. Some of these tests rely on the use of analyte-specific reagents and are subject to specific labeling requirements by the [place] Food and Drug Administration. Such tests were developed by the Histology Laboratory of [facility] and have not been cleared [...] TR 4 nodule, recommend short-term follow-up (image [id number]). The second nodule is well-circumscribed, hypoechoic, solid nodule, measuring 0.6 x 0.6 x 0.3 cm; this is a TR 4 nodule, which is not suspicious (image [id number]). ?? The isthmus is mildly thickened. Vascularity [...] patient Munira Bates, Endocrinology, Diabetes & Metabolism IZER HELPER Associated attestation - Yosi Bustamante MD - 08/20/2020 4:19 PM ACIDIZER HELPER I HAVE SEEN AND EXAMINED THE PATIENT [...] everywhere and media and results section in [facility] Results for ELIZABETH CAICEDO ( ) [...] Release to patient Immediate Isa Jimenez MD IZER HELPER Associated attestation - Dionte Comer MD - 08/19/2020 4:13 PM ACIDIZER HELPER I have reviewed the above brief operative note as entered by the resident and agree with the above description; however, for the most definitive information providers should refer to the full operative note as dictated. Edmar Comer MD * Operative - Dorian Merrill MD - 08/19/2020 8:34 AM CST [facility] DIVISION OF PEDIATRIC OTOLARYNGOLOGY- HEAD & NECK SURGERY OPERATIVE REPORT PATIENT NAME: Elizabeth Caicedo DATE OF : 1960 CSN: [id number] DATE OF OPERATION: 08/19/2020 0730 Pre Operative Diagnoses: Thyroid cancer with tracheal invasion Post Operative Diagnoses: Same Procedure: Cricotracheal resection and re-anastomosis Surgeon: Dorian Merrill M.D. Access Database Developer: Isa Jimenez M.D. Anesthesia: General Indications: Elizabeth [...] and a sergo was placed in the alliance party wall. A vertical incision was made [...] none Postop Disposition/Plan: - Per Dr. Comer IZER HELPER * Operative - Dionte Comer MD - [...] Bilateral modified radical neck dissection, CPT code 16452-51. 2. Total thyroidectomy with central neck dissection and tracheal resection and esophageal muscle resection, CPT code 69315. 3. Parathyroid implantation of the right deltoid, CPT code 20764. 4. Laryngoscopy, diagnostic, CPT code 96222. 5. Rigid esophagoscopy, diagnostic, CPT code 33303. SURGEON: Edmar Comer MD SCHOOL ADMISSIONS REPRESENTATIVE: Isa Jimenez MD ESTIMATED BLOOD LOSS: 125 [...] controlled utilizing multiple 2-0 silk sutures in [id number] fashion. We checked this area again twice, [...] tumor, and as I dissected across thecommon alliance party wall, we decided to make our [...] DRAINS: Sergo to the central neck and 19-Yemeni round to each lateral deep neck. COMPLICATIONS: None. DISPOSITION: Recovery and then intensive care unit. Dionte Comer MD /[id number] Doc ID: [id number] Voice Job ID: [id number] IZER HELPER documented in this encounter Miscellaneous Notes * [...] Diagnosis (specify): ____Clinically undetermined/unknown ____Edmar Comer MD, [facility] Physician Signature Date/Time 09/03/2020 This is part of the medical record IZER HELPER documented in this encounter Plan of Treatment Upcoming Encounters Date Type Department Care Team (Late st Contact Info) Description 08/02/2024 2:20 PM ACIDIZER HELPER Appointment [facility] [address] [place] [phone] 08/02/2024 3:00 PM ACIDIZER HELPER Office Visit [facility] - Hematology/Oncology [address] [place] [address] [phone] Remi Beckett MD [address] [place] [phone] 08/18/2024 1:45 PM ACIDIZER HELPER Office Visit [facility] - ENT [address] [place] [phone] Neri Delgado MD [address] [place] [phone] 08/30/2024 2:20 PM ACIDIZER HELPER Appointment [facility] [address] [place] [phone] documented as of this encounter Procedures Procedure Name Priority Date/Time Associated Diagnosis Comments CALCIUM IONIZED WHOLE BLOOD Routine 08/29/2020 4:08 AM ACIDIZER HELPER PTH INTACT W/O CALCIUM AM Draw 08/29/2020 4:08 AM ACIDIZER HELPER CBC W/O DIFFERENTIAL Routine 08/29/2020 4:08 AM ACIDIZER HELPER BASIC METABOLIC PANEL (CALCIUM TOTAL) Routine 08/29/2020 4:08 AM ACIDIZER HELPER PHOSPHORUS BLOOD Routine 08/29/2020 4:08 AM ACIDIZER HELPER MAGNESIUM BLOOD Routine 08/29/2020 4:08 AM ACIDIZER HELPER ALBUMIN BLOOD Routine 08/29/2020 4:08 AM ACIDIZER HELPER CALCIUM IONIZED WHOLE BLOOD Routine 08/28/2020 9:42 PM ACIDIZER HELPER CALCIUM IONIZED WHOLE BLOOD Routine 08/28/2020 4:05 PM ACIDIZER HELPER CALCIUM IONIZED WHOLE BLOOD Routine 08/28/2020 11:54 AM ACIDIZER HELPER CALCIUM IONIZED WHOLE BLOOD Routine 08/28/2020 5:49 AM ACIDIZER HELPER PTH INTACT W/O CALCIUM AM Draw 08/28/2020 5:49 AM ACIDIZER HELPER CBC W/O DIFFERENTIAL Routine 08/28/2020 5:49 AM ACIDIZER HELPER BASIC METABOLIC PANEL (CALCIUM TOTAL) Routine 08/28/2020 5:49 AM ACIDIZER HELPER PHOSPHORUS BLOOD Routine 08/28/2020 5:49 AM ACIDIZER HELPER MAGNESIUM BLOOD Routine 08/28/2020 5:49 AM ACIDIZER HELPER ALBUMIN BLOOD Routine 08/28/2020 5:49 AM ACIDIZER HELPER CALCIUM IONIZED WHOLE BLOOD Routine 08/27/2020 4:53 PM ACIDIZER HELPER GLUCOSE - POINT OF CARE Routine 08/27/2020 4:27 PM ACIDIZER HELPER CALCIUM IONIZED WHOLE BLOOD Routine 08/27/2020 11:41 AM ACIDIZER HELPER CALCIUM IONIZED WHOLE BLOOD Routine 08/27/2020 5:48 AM ACIDIZER HELPER PTH INTACT W/O CALCIUM AM Draw 08/27/2020 5:48 AM ACIDIZER HELPER CBC W/O DIFFERENTIAL Routine 08/27/2020 5:48 AM ACIDIZER HELPER BASIC METABOLIC PANEL (CALCIUM TOTAL) Routine 08/27/2020 5:48 AM ACIDIZER HELPER PHOSPHORUS BLOOD Routine 08/27/2020 5:48 AM ACIDIZER HELPER MAGNESIUM BLOOD Routine 08/27/2020 5:48 AM ACIDIZER HELPER ALBUMIN BLOOD Routine 08/27/2020 5:48 AM ACIDIZER HELPER CALCIUM IONIZED WHOLE BLOOD Routine 08/26/2020 4:20 PM ACIDIZER HELPER CALCIUM IONIZED WHOLE BLOOD Routine 08/26/2020 11:35 AM ACIDIZER HELPER CALCIUM IONIZED WHOLE BLOOD Routine 08/26/2020 6:43 AM ACIDIZER HELPER CALCIUM IONIZED WHOLE BLOOD Routine 08/26/2020 12:41 AM ACIDIZER HELPER PTH INTACT W/O CALCIUM AM Draw 08/26/2020 12:41 AM ACIDIZER HELPER CBC W/O DIFFERENTIAL Routine 08/26/2020 12:41 AM ACIDIZER HELPER BASIC METABOLIC PANEL (CALCIUM TOTAL) Routine 08/26/2020 12:41 AM ACIDIZER HELPER PHOSPHORUS BLOOD Routine 08/26/2020 12:4 1 AM ACIDIZER HELPER MAGNESIUM BLOOD Routine 08/26/2020 12:41 AM ACIDIZER HELPER ALBUMIN BLOOD Routine 08/26/2020 12:41 AM ACIDIZER HELPER CALCIUM IONIZED WHOLE BLOOD Routine 08/25/2020 4:06 PM ACIDIZER HELPER CALCIUM URINE RANDOM Routine 08/25/2020 1:12 PM ACIDIZER HELPER CALCIUM IONIZED WHOLE BLOOD Routine 08/25/2020 10:53 AM ACIDIZER HELPER CALCIUM IONIZED WHOLE BLOOD Routine 08/25/2020 9:04 AM ACIDIZER HELPER CALCIUM IONIZED WHOLE BLOOD Routine 08/25/2020 4:16 AM ACIDIZER HELPER PTH INTACT W/O CALCIUM AM Draw 08/25/2020 4:16 AM ACIDIZER HELPER CBC W/O DIFFERENTIAL Routine 08/25/2020 4:16 AM ACIDIZER HELPER BASIC METABOLIC PANEL (CALCIUM TOTAL) Routine 08/25/2020 4:16 AM ACIDIZER HELPER PHOSPHORUS BLOOD Routine 08/25/2020 4:16 AM ACIDIZER HELPER MAGNESIUM BLOOD Routine 08/25/2020 4:16 AM ACIDIZER HELPER ALBUMIN BLOOD Routine 08/25/2020 4:16 AM ACIDIZER HELPER CALCIUM IONIZED WHOLE BLOOD Routine 08/24/2020 4:50 PM ACIDIZER HELPER CALCIUM IONIZED WHOLE BLOOD Routine 08/24/2020 10:42 AM ACIDIZER HELPER CALCIUM IONIZED WHOLE BLOOD Routine 08/24/2020 4:17 AM ACIDIZER HELPER CALCIUM URINE RANDOM Routine 08/24/2020 2:48 AM ACIDIZER HELPER CALCIUM IONIZED WHOLE BLOOD Routine 08/24/2020 12:05 AM ACIDIZER HELPER PTH INTACT W/O CALCIUM AM Draw 08/24/2020 12:05 AM ACIDIZER HELPER CBC W/O DIFFERENTIAL Routine 08/24/2020 12:05 AM ACIDIZER HELPER BASIC METABOLIC PANEL (CALCIUM TOTAL) Routine 08/24/2020 12:05 AM ACIDIZER HELPER PHOSPHORUS BLOOD Routine 08/24/2020 12:0 5 AM ACIDIZER HELPER ALBUMIN BLOOD AM Draw 08/24/2020 12:05 AM ACIDIZER HELPER CALCIUM IONIZED WHOLE BLOOD Routine 08/23/2020 5:31 PM ACIDIZER HELPER OT EVAL AND TREAT Routine 08/23/2020 11: 25 AM ACIDIZER HELPER CALCIUM IONIZED WHOLE BLOOD Routine 08/23/2020 10:49 AM ACIDIZER HELPER MAGNESIUM BLOOD Routine 08/23/2020 10:49 AM ACIDIZER HELPER CALCIUM URINE RANDOM Routine 08/23/2020 5:04 AM ACIDIZER HELPER CALCIUM IONIZED WHOLE BLOOD Routine 08/23/2020 4:28 AM ACIDIZER HELPER PTH INTACT W/O CALCIUM AM Draw 08/23/2020 4:28 AM ACIDIZER HELPER BASIC METABOLIC PANEL (CALCIUM TOTAL) Add on 08/23/2020 4:28 AM ACIDIZER HELPER ALBUMIN BLOOD AM Draw 08/23/2020 4:28 AM ACIDIZER HELPER PREPARE RBC LEUKOREDUCED UNIT Routine 08/23/2020 2:17 AM ACIDIZER HELPER CALCIUM IONIZED WHOLE BLOOD Routine 08/22/2020 11:50 PM ACIDIZER HELPER CBC W/O DIFFERENTIAL Routine 08/22/2020 11:50 PM ACIDIZER HELPER BASIC METABOLIC PANEL (CALCIUM TOTAL) Routine 08/22/2020 11:50 PM ACIDIZER HELPER PHOSPHORUS BLOOD Routine 08/22/2020 11:5 0 PM ACIDIZER HELPER CALCIUM IONIZED WHOLE BLOOD Routine 08/22/2020 4:36 PM ACIDIZER HELPER CALCIUM IONIZED WHOLE BLOOD Routine 08/22/2020 11:05 AM ACIDIZER HELPER RENAL FUNCTION PANEL STAT 08/22/2020 11:05 AM ACIDIZER HELPER MAGNESIUM BLOOD Routine 08/22/2020 11:05 AM ACIDIZER HELPER CALCIUM IONIZED WHOLE BLOOD Routine 08/22/2020 5:04 AM ACIDIZER HELPER CBC W/O DIFFERENTIAL Routine 08/21/2020 11:44 PM ACIDIZER HELPER BASIC METABOLIC PANEL (CALCIUM TOTAL) Routine 08/21/2020 11:44 PM ACIDIZER HELPER PHOSPHORUS BLOOD Routine 08/21/2020 11:4 4 PM ACIDIZER HELPER MAGNESIUM BLOOD Routine 08/21/2020 11:44 PM ACIDIZER HELPER CALCIUM IONIZED WHOLE BLOOD Routine 08/21/2020 11:43 PM ACIDIZER HELPER CALCIUM IONIZED WHOLE BLOOD Routine 08/21/2020 5:34 PM ACIDIZER HELPER MAGNESIUM BLOOD Routine 08/21/2020 12:01 PM ACIDIZER HELPER CALCIUM IONIZED WHOLE BLOOD Routine 08/21/2020 11:07 AM ACIDIZER HELPER CALCIUM IONIZED WHOLE BLOOD Routine 08/21/2020 4:25 AM ACIDIZER HELPER THYROGLOBULIN REFLEX PROFILE AM Draw 08/21/2020 4:25 AM ACIDIZER HELPER THYROGLOBULIN BY ANTONIETA RFLXED Routine 08/21/2020 4:25 AM ACIDIZER HELPER VITAMIN D 25-HYDROXY AM Draw 08/21/2020 4:25 AM ACIDIZER HELPER CBC W/O DIFFERENTIAL Routine 08/20/2020 11:24 PM ACIDIZER HELPER BASIC METABOLIC PANEL (CALCIUM TOTAL) Routine 08/20/2020 11:24 PM ACIDIZER HELPER PHOSPHORUS BLOOD Routine 08/20/2020 11:2 4 PM ACIDIZER HELPER MAGNESIUM BLOOD Routine 08/20/2020 11:24 PM ACIDIZER HELPER CALCIUM IONIZED WHOLE BLOOD Routine 08/20/2020 11:04 PM ACIDIZER HELPER CALCIUM IONIZED WHOLE BLOOD Routine 08/20/2020 5:46 PM ACIDIZER HELPER CALCIUM IONIZED WHOLE BLOOD Routine 08/20/2020 11:41 AM ACIDIZER HELPER CALCIUM IONIZED WHOLE BLOOD Routine 08/20/2020 5:08 AM ACIDIZER HELPER PTH INTACT W/O CALCIUM AM Draw 08/20/2020 5:08 AM ACIDIZER HELPER CALCIUM IONIZED WHOLE BLOOD Routine 08/19/2020 11:48 PM ACIDIZER HELPER CBC W/O DIFFERENTIAL Routine 08/19/2020 11:48 PM ACIDIZER HELPER BASIC METABOLIC PANEL (CALCIUM TOTAL) Routine 08/19/2020 11:48 PM ACIDIZER HELPER PHOSPHORUS BLOOD Routine 08/19/2020 11:4 8 PM ACIDIZER HELPER MAGNESIUM BLOOD Routine 08/19/2020 11:48 PM ACIDIZER HELPER CALCIUM IONIZED WHOLE BLOOD Routine 08/19/2020 6:16 PM ACIDIZER HELPER XR ABDOMEN KUB PORTABLE STAT 08/19/2020 4:52 PM ACIDIZER HELPER Tracheal mass PATHOLOGY TISSUE Routine 08/19/2020 9:43 AM ACIDIZER HELPER 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 EXCISION/RESECTION/R EPAIR TRACHEA 08/19/2020 8:34 AM ACIDIZER HELPER 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 Special Needs Supine, STORZ VIDEO TOWER, LARYNGEAL TELESCOPES, LEICA Laryngeal Microscope W/ 400 MM LENS RLN monitoring,DS 2/8 DISSECTION NECK 08/19/2020 8:34 AM ACIDIZER HELPER 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 Special Needs Supine, STORZ VIDEO TOWER, LARYNGEAL TELESCOPES, LEICA Laryngeal Microscope W/ 400 MM LENS RLN monitoring,DS 2/8 LARYNGOSCOPY WITH MICROSCOPE 08/19/2020 8:34 AM ACIDIZER HELPER 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 Special Needs Supine, STORZ VIDEO TOWER, LARYNGEAL TELESCOPES, LEICA Laryngeal Microscope W/ 400 MM LENS RLN monitoring,DS 2/8 TYPE + SCREEN PANEL MARAL 08/19/2020 6 :18 AM ACIDIZER HELPER documented in this encounter Results * (ABNORMAL) RENAL FUNCTION PANEL (09/11/2020 2:13 PM ACIDIZER HELPER) BUN 13 7 - 26 mg/dL 09/11/2020 2:56 PM [facility] Creatinine 0.7 0.6 - 1.2 mg/dL 09/11/2020 2:56 PM [facility] Sodium 143 136 - 145 mmol/L 09/11/2020 2:56 PM [facility] Potassium 3.9 3.5 - 4.5 mmol/L 09/11/2020 2:56 PM [facility] Chloride 104 98 - 107 mmol/L 09/11/2020 2:56 PM [facility] CO2 29 22 - 29 mmol/L 09/11/2020 2:56 PM [facility] Glucose 91 70 - 115 mg/dL 09/11/2020 2:56 PM [facility] Albumin 3.0(L) 3.4 - 5.0 g/dL 09/11/2020 2:56 PM [facility] Calcium 8.5 8.4 - 10.2 mg/dL 09/11/2020 2:56 PM [facility] Phosphorus 5.5(H) 2.3 - 4.7 mg/dL 09/11/2020 2:56 PM [facility] Anion Gap 14 8 - 18 09/11/2020 2:56 PM [facility] BUN/Creatinine Ratio 19 7 - 23 09/11/2020 2:56 PM [facility] Osmolality Calculated 296 270 - 300 mOsm/kg 09/11/2020 2:56 PM [facility] eGFR >60 >60 mL/min/1.7 3 m2 09/11/2020 2:56 PM [facility] Blood BLOOD SPECIMEN / Unknown Lab Venipuncture / Unknown 09/11/2020 2:13 PM ACIDIZER HELPER 09/11/2020 2:29 PM [facility] Dionte Comer MD LAB - CHEMISTRY ASH WEAVER [facility] [address] [place] [phone], [facility] [phone] * (ABNORMAL) CALCIUM IONIZED WHOLE BLOOD (08/29/2020 4:08 AM ACIDIZER HELPER) Ionized Calcium Whole Blood 1.05 mmol/L 08/29/2020 4:58 AM [facility] Adjusted Ionized Calcium 1.07(L) 1.19 - 1.34 mmol/L 08/29/2020 4:58 AM [facility] pH Whole Blood 7.44 7.35 - 7.45 08/29/2020 4:58 AM [facility] Blood WHOLE BLOOD SPECIMEN / Unknown Lab Venipuncture / Unknown 08/29/2020 4:08 AM ACIDIZER HELPER 08/29/2020 4:57 AM ACIDIZER HELPER Dionte Comer MD LAB - CHEMISTRY ASH WEAVER [address] [address], [facility] [phone] * (ABNORMAL) PHOSPHORUS BLOOD (08/29/2020 4:08 AM ACIDIZER HELPER) Phosphorus 4.9(H) 2.3 - 4.7 mg/dL 08/29/2020 5:28 AM [facility] Blood BLOOD SPECIMEN / Unknown Lab Venipuncture / Unknown 08/29/2020 4:08 AM ACIDIZER HELPER 08/29/2020 5:00 AM ACIDIZER HELPER Dionte Comer MD LAB - CHEMISTRY ASH WEAVER [address] [address], [place] [phone] * MAGNESIUM BLOOD (08/29/2020 4:08 AM ACIDIZER HELPER) Magnesium 2.3 1.6 - 2.6 mg/dL 08/29/2020 5:28 AM [facility] Blood BLOOD SPECIMEN / Unknown Lab Venipuncture / Unknown 08/29/2020 4:08 AM ACIDIZER HELPER 08/29/2020 5:00 AM ACIDIZER HELPER Dionte Comer MD LAB - CHEMISTRY ASH WEAVER [facility] [address] [place] [address], [facility] [phone] * (ABNORMAL) CBC W/O DIFFERENTIAL (08/29/2020 4:08 AM [facility]) WBC 11.2(H) 3.5 - 10.5 10? 3 /uL 08/29/2020 5:12 AM [facility] RBC 4.27 3.90 - 5.00 10? 6 /uL 08/29/2020 5:12 AM [facility] Hemoglobin 12.3 12.0 - 15.5 g/dL 08/29/2020 5:12 AM [facility] Hematocrit 38.0 35.0 - 45.0 % 08/29/2020 5:12 AM [facility] MCV 89.0 81.0 - 97.0 fL 08/29/2020 5:12 AM [facility] MCH 28.8 28.0 - 34.0 pg 08/29/2020 5:12 AM [facility] MCHC 32.4 32.0 - 36.0 g/dL 08/29/2020 5:12 AM [facility] Platelet Count 380 150 - 400 10? 3 /uL 08/29/2020 5:12 AM [facility] RDW-SD 40.0 36.0 - 50.0 fL 08/29/2020 5:12 AM [facility] RDW-CV 12.4 11.2 - 14.8 % 08/29/2020 5:12 AM [facility] MPV 9.8 9.3 - 12.8 fL 08/29/2020 5:12 AM [facility] nRBC Absolute 0.00 0 10? 3 /uL 08/29/2020 5:12 AM [facility] nRBC Auto 0.0 0 /100 WBC 08/29/2020 5:12 AM [facility] Blood BLOOD SPECIMEN / Unknown Lab Venipuncture / Unknown 08/29/2020 4:08 AM [facility] 08/29/2020 5:00 AM ACIDIZER HELPER Dionte Comer MD LAB - HEMATOLOGY ORD ERABLES [address] [address], [place] [phone] * (ABNORMAL) ALBUMIN BLOOD (08/29/2020 4:08 AM ACIDIZER HELPER) Albumin 2.9(L) 3.4 - 5.0 g/dL 08/29/2020 5:28 AM [facility] Blood BLOOD SPECIMEN / Unknown Lab Venipuncture / Unknown 08/29/2020 4:08 AM ACIDIZER HELPER 08/29/2020 5:00 AM ACIDIZER HELPER Dionte Comer MD LAB - CHEMISTRY ORDE RABHORTENCIA Performing Organization Address City/[facility]/ZIP Co de Phone Number [address] [address], [place] [phone] * (ABNORMAL) BASIC METABOLIC PANEL (CALCIUM TOTAL) (08/29/2020 4:08 AM ACIDIZER HELPER) BUN 11 7 - 26 mg/dL 08/29/2020 5:28 AM [facility] Creatinine 0.7 0.6 - 1.2 mg/dL 08/29/2020 5:28 AM [facility] Sodium 142 136 - 145 mmol/L 08/29/2020 5:28 AM [facility] Potassium 3.9 3.5 - 4.5 mmol/L 08/29/2020 5:28 AM [facility] Chloride 103 98 - 107 mmol/L 08/29/2020 5:28 AM [facility] CO2 27 22 - 29 mmol/L 08/29/2020 5:28 AM [facility] Glucose 101 70 - 115 mg/dL 08/29/2020 5:28 AM [facility] Calcium 8.0(L) 8.4 - 10.2 mg/dL 08/29/2020 5:28 AM [facility] Anion Gap 16 8 - 18 08/29/2020 5:28 AM [facility] BUN/Creatinine Ratio 16 7 - 23 08/29/2020 5:28 AM [facility] Osmolality Calculated 294 270 - 300 mOsm/kg 08/29/2020 5:28 AM [facility] eGFR >60 >60 mL/min/1.7 3 m2 08/29/2020 5:28 AM [facility] Blood BLOOD SPECIMEN / Unknown Lab Venipuncture / Unknown 08/29/2020 4:08 AM ACIDIZER HELPER 08/29/2020 5:00 AM ACIDIZER HELPER Dionte Comer MD LAB - CHEMISTRY ORDSrinivas WEAVER [address] [address], [facility] [phone] * PTH INTACT W/O CALCIUM (08/29/2020 4:08 AM ACIDIZER HELPER) PTH Intact 10.1 8.0 - 77.0 pg/mL 08/29/2020 5:33 AM [facility] Blood BLOOD SPECIMEN / Unknown Lab Venipuncture / Unknown 08/29/2020 4:08 AM ACIDIZER HELPER 08/29/2020 5:00 AM ACIDIZER HELPER Dionte Comer MD LAB - CHEMISTRY ASH WEAVER Performing Organization Address City/[facility]/ZIP Co de Phone Number [address] [address], [place] [phone] * (ABNORMAL) CALCIUM IONIZED WHOLE BLOOD (08/28/2020 9:42 PM ACIDIZER HELPER) Ionized Calcium Whole Blood 1.09 mmol/L 08/28/2020 9:47 PM [facility] Adjusted Ionized Calcium 1.11(L) 1.19 - 1.34 mmol/L 08/28/2020 9:47 PM [facility] pH Whole Blood 7.43 7.35 - 7.45 08/28/2020 9:47 PM [facility] Blood WHOLE BLOOD SPECIMEN / Unknown Lab Venipuncture / Unknown 08/28/2020 9:42 PM ACIDIZER HELPER 08/28/2020 9:45 PM ACIDIZER HELPER Dionte Comer MD LAB - CHEMISTRY ASH WEAVER [address] [address], [place] [phone] * (ABNORMAL) CALCIUM IONIZED WHOLE BLOOD (08/28/2020 4:05 PM ACIDIZER HELPER) Ionized Calcium Whole Blood 1.02 mmol/L 08/28/2020 4:11 PM ACIDIZER HELPER [facility] Adjusted Ionized Calcium 1.03(L) 1.19 - 1.34 mmol/L 08/28/2020 4:11 PM ACIDIZER HELPER [facility] pH Whole Blood 7.42 7.35 - 7.45 08/28/2020 4:11 PM [facility] Blood WHOLE BLOOD SPECIMEN / Unknown Lab Venipuncture / Unknown 08/28/2020 4:05 PM ACIDIZER HELPER 08/28/2020 4:09 PM ACIDIZER HELPER Dionte Comer MD LAB - CHEMISTRY ASH WEAVER [address] [address], [place] [phone] * (ABNORMAL) CALCIUM IONIZED WHOLE BLOOD (08/28/2020 11:54 AM ACIDIZER HELPER) Ionized Calcium Whole Blood 1.04 mmol/L 08/28/2020 12:12 PM ACIDIZER HELPER [facility] Adjusted Ionized Calcium 1.05(L) 1.19 - 1.34 mmol/L 08/28/2020 12:12 PM ACIDIZER HELPER [facility] pH Whole Blood 7.41 7.35 - 7.45 08/28/2020 12:12 PM ACIDIZER HELPER [facility] Blood WHOLE BLOOD SPECIMEN / Unknown Lab Venipuncture / Unknown 08/28/2020 11:54 AM ACIDIZER HELPER 08/28/2020 12:04 PM ACIDIZER HELPER Dionte Comer MD LAB - CHEMISTRY ASH WEAVER [address] [address], [place] [phone] * (ABNORMAL) PHOSPHORUS BLOOD (08/28/2020 5:49 AM ACIDIZER HELPER) Pathologist [facility] Phosphorus 5.5(H) 2.3 - 4.7 mg/dL 08/28/2020 6:37 AM [facility] Blood BLOOD SPECIMEN / Unknown Lab Venipuncture / Unknown 08/28/2020 5:49 AM ACIDIZER HELPER 08/28/2020 6:04 AM ACIDIZER HELPER Dionte Comer MD LAB - CHEMISTRY ASH WEAVER [address] [address], [facility] [phone] * MAGNESIUM BLOOD (08/28/2020 5:49 AM ACIDIZER HELPER) Pathologist [facility] Magnesium 2.2 1.6 - 2.6 mg/dL 08/28/2020 6:37 AM [facility] Blood BLOOD SPECIMEN / Unknown Lab Venipuncture / Unknown 08/28/2020 5:49 AM ACIDIZER HELPER 08/28/2020 6:04 AM ACIDIZER HELPER Dionte Comer MD LAB - CHEMISTRY ASH WEAVER [address] [address], [facility] [phone] * (ABNORMAL) CBC W/O DIFFERENTIAL (08/28/2020 5:49 AM ACIDIZER HELPER) Pathologist [facility] WBC 11.1(H) 3.5 - 10.5 10? 3 /uL 08/28/2020 6:28 AM [facility] RBC 3.99 3.90 - 5.00 10? 6 /uL 08/28/2020 6:28 AM [facility] Hemoglobin 11.6(L) 12.0 - 15.5 g/dL 08/28/2020 6:28 AM [facility] Hematocrit 35.4 35.0 - 45.0 % 08/28/2020 6:28 AM [facility] MCV 88.7 81.0 - 97.0 fL 08/28/2020 6:28 AM [facility] MCH 29.1 28.0 - 34.0 pg 08/28/2020 6:28 AM [facility] MCHC 32.8 32.0 - 36.0 g/dL 08/28/2020 6:28 AM [facility] Platelet Count 332 150 - 400 10? 3 /uL 08/28/2020 6:28 AM [facility] RDW-SD 39.4 36.0 - 50.0 fL 08/28/2020 6:28 AM [facility] RDW-CV 12.2 11.2 - 14.8 % 08/28/2020 6:28 AM [facility] MPV 9.8 9.3 - 12.8 fL 08/28/2020 6:28 AM [facility] nRBC Absolute 0.00 0 10? 3 /uL 08/28/2020 6:28 AM [facility] nRBC Auto 0.0 0 /100 WBC 08/28/2020 6:28 AM [facility] Blood BLOOD SPECIMEN / Unknown Lab Venipuncture / Unknown 08/28/2020 5:49 AM [facility] 08/28/2020 6:03 AM [facility] Dionte Comer MD LAB - HEMATOLOGY ORD ERABLES [address] [address], [facility] [phone] * (ABNORMAL) ALBUMIN BLOOD (08/28/2020 5:49 AM [facility]) Albumin 2.9(L) 3.4 - 5.0 g/dL 08/28/2020 6:37 AM [facility] Blood BLOOD SPECIMEN / Unknown Lab Venipuncture / Unknown 08/28/2020 5:49 AM [facility] 08/28/2020 6:04 AM [employer] Dionte Comer MD LAB - CHEMISTRY ORDE OWEN [address] [address], [facility] [phone] * (ABNORMAL) BASIC METABOLIC PANEL (CALCIUM TOTAL) (08/28/2020 5:49 AM [facility]) Pathologist [facility] [place] BUN 12 7 - 26 mg/dL 08/28/2020 6:37 AM [facility] Creatinine 0.7 0.6 - 1.2 mg/dL 08/28/2020 6:37 AM [facility] Sodium 142 136 - 145 mmol/L 08/28/2020 6:37 AM [facility] Potassium 3.9 3.5 - 4.5 mmol/L 08/28/2020 6:37 AM [facility] Chloride 103 98 - 107 mmol/L 08/28/2020 6:37 AM [facility] CO2 29 22 - 29 mmol/L 08/28/2020 6:37 AM [facility] Glucose 101 70 - 115 mg/dL 08/28/2020 6:37 AM [facility] Calcium 7.3(L) 8.4 - 10.2 mg/dL 08/28/2020 6:37 AM [facility] Anion Gap 14 8 - 18 08/28/2020 6:37 AM [facility] BUN/Creatinine Ratio 17 7 - 23 08/28/2020 6:37 AM [facility] Osmolality Calculated 294 270 - 300 mOsm/kg 08/28/2020 6:37 AM [facility] eGFR >60 >60 mL/min/1.7 3 m2 08/28/2020 6:37 AM [facility] Blood BLOOD SPECIMEN / Unknown Lab Venipuncture / Unknown 08/28/2020 5:49 AM [facility] [facility] 08/28/2020 6:04 AM [facility] Dionte Comer MD LAB - CHEMISTRY ASH WEAVER [facility] [address] [place] [address], [facility] [phone] * PTH INTACT W/O CALCIUM (08/28/2020 5:49 AM [facility]) [facility] PTH Intact 10.7 8.0 - 77.0 pg/mL 08/28/2020 7:17 AM [facility] Blood BLOOD SPECIMEN / Unknown Lab Venipuncture / Unknown 08/28/2020 5:49 AM [facility] 08/28/2020 6:46 AM [facility] Dionte Comer MD LAB - CHEMISTRY ASH WEAVER [address] [address], [facility] [phone] * (ABNORMAL) CALCIUM IONIZED WHOLE BLOOD (08/28/2020 5:49 AM [facility] HELPER) Ionized Calcium Whole Blood 1.04 mmol/L 08/28/2020 6:03 AM [facility] HELPER [facility] Adjusted Ionized Calcium 1.04(L) 1.19 - 1.34 mmol/L 08/28/2020 6:03 AM [facility] pH Whole Blood 7.40 7.35 - 7.45 08/28/2020 6:03 AM [facility] Blood WHOLE BLOOD SPECIMEN / Unknown Lab Venipuncture / Unknown 08/28/2020 5:49 AM [facility] 08/28/2020 6:01 AM [facility] Dionte Comer MD LAB - CHEMISTRY ASH WEAVER [address] [address], [facility] [phone] * (ABNORMAL) CALCIUM IONIZED WHOLE BLOOD (08/27/2020 4:53 PM [facility] HELPER) Ionized Calcium Whole Blood 1.05 mmol/L 08/27/2020 4:59 PM [facility] HELPER [facility] Adjusted Ionized Calcium 1.06(L) 1.19 - 1.34 mmol/L 08/27/2020 4:59 PM [facility] HELPER [facility] pH Whole Blood 7.41 7.35 - 7.45 08/27/2020 4:59 PM [facility] Blood WHOLE BLOOD SPECIMEN / Unknown Lab Venipuncture / Unknown 08/27/2020 4:53 PM [facility] 08/27/2020 4:57 PM [facility] Dionte Comer MD LAB - CHEMISTRY ASH WEAVER [address] [address], [place] [phone] * (ABNORMAL) GLUCOSE - POINT OF CARE (08/27/2020 4:27 PM [facility]) Glucose WB/POC 157(H) 70 - 115 mg/dL 08/27/2020 4:32 PM [facility] HELPER [facility] Specimen Type Arterial/C apillary 08/27/2020 4:32 PM [facility] HELPER [facility] Blood BLOOD SPECIMEN / Unknown 08/27/2020 4:27 PM [facility] HELPER 08/27/2020 4:32 PM [facility] Dionte Comer MD LAB - POINT OF CARE ORDERABLES Performing Organization Address [facility]/ZIP Co de Phone Number [address] [address], [place] [phone] * (ABNORMAL) CALCIUM IONIZED WHOLE BLOOD (08/27/2020 11:41 AM [facility] HELPER) [facility] Ionized Calcium Whole Blood 1.03 mmol/L 08/27/2020 11:53 AM [facility] Adjusted Ionized Calcium 1.03(L) 1.19 - 1.34 mmol/L 08/27/2020 11:53 AM [facility] pH Whole Blood 7.40 7.35 - 7.45 08/27/2020 11:53 AM [facility] Blood WHOLE BLOOD SPECIMEN / Unknown Lab Venipuncture / Unknown 08/27/2020 11:41 AM [facility] HEL[facility] 08/27/2020 11:48 AM [facility] HELPER Dionte Comer MD LAB - CHEMISTRY AHS WEAVER [address] [address], [place] [phone] * (ABNORMAL) PHOSPHORUS BLOOD (08/27/2020 5:48 AM [facility] HEL[facility]) Pathologist [facility] Phosphorus 5.4(H) 2.3 - 4.7 mg/dL 08/27/2020 6:22 AM [facility] Blood BLOOD SPECIMEN / Unknown Lab Venipuncture / Unknown 08/27/2020 5:48 AM [facility] HELPER 08/27/2020 5:57 AM [facility] Dionte Comer MD LAB - CHEMISTRY ASH WEAVER [address] [address], [place] [phone] * MAGNESIUM BLOOD (08/27/2020 5:48 AM [facility] HELPER) Pathologist [facility] Magnesium 2.1 1.6 - 2.6 mg/dL 08/27/2020 6:22 AM [facility] Blood BLOOD SPECIMEN / Unknown Lab Venipuncture / Unknown 08/27/2020 5:48 AM [facility] HELPER 08/27/2020 5:57 AM [facility] Dionte Comer MD LAB - CHEMISTRY ASH EWAVER [address] [address], [place] [phone] * (ABNORMAL) CBC W/O DIFFERENTIAL (08/27/2020 5:48 AM AC[facility]ER HELPER) [facility] WBC 9.5 3.5 - 10.5 10? 3 /uL 08/27/2020 6:18 AM [facility] RBC 3.84(L) 3.90 - 5.00 10? 6 /uL 08/27/2020 6:18 AM [facility] Hemoglobin 11.3(L) 12.0 - 15.5 g/dL 08/27/2020 6:18 AM [facility] Hematocrit 34.4(L) 35.0 - 45.0 % 08/27/2020 6:18 AM [facility] MCV 89.6 81.0 - 97.0 fL 08/27/2020 6:18 AM [facility] MCH 29.4 28.0 - 34.0 pg 08/27/2020 6:18 AM [facility] MCHC 32.8 32.0 - 36.0 g/dL 08/27/2020 6:18 AM [facility] Platelet Count 327 150 - 400 10? 3 /uL 08/27/2020 6:18 AM [facility] RDW-SD 39.7 36.0 - 50.0 fL 08/27/2020 6:18 AM [facility] RDW-CV 12.2 11.2 - 14.8 % 08/27/2020 6:18 AM [facility] MPV 9.6 9.3 - 12.8 fL 08/27/2020 6:18 AM [facility] nRBC Absolute 0.00 0 10? 3 /uL 08/27/2020 6:18 AM [facility] nRBC Auto 0.0 0 /100 WBC 08/27/2020 6:18 AM [facility] Blood BLOOD SPECIMEN / Unknown Lab Venipuncture / Unknown 08/27/2020 5:48 AM [facility] 08/27/2020 5:56 AM [facility] Dionte Comer MD LAB - HEMATOLOGY ORD ERABLES [address] [address], [facility] [phone] * (ABNORMAL) ALBUMIN BLOOD (08/27/2020 5:48 AM [facility] HELPER) Albumin 2.8(L) 3.4 - 5.0 g/dL 08/27/2020 6:22 AM [facility] Blood BLOOD SPECIMEN / Unknown Lab Venipuncture / Unknown 08/27/2020 5:48 AM [facility] HELPER 08/27/2020 5:57 AM [facility]PER Dionet Comer MD LAB - CHEMISTRY ORDE OWEN [address] [address], [place] [phone] * (ABNORMAL) BASIC METABOLIC PANEL (CALCIUM TOTAL) (08/27/2020 5:48 AM [facility]) BUN 9 7 - 26 mg/dL 08/27/2020 6:22 AM [facility] Creatinine 0.6 0.6 - 1.2 mg/dL 08/27/2020 6:22 AM [facility] Sodium 143 136 - 145 mmol/L 08/27/2020 6:22 AM [facility] Potassium 3.7 3.5 - 4.5 mmol/L 08/27/2020 6:22 AM [facility] Chloride 99 98 - 107 mmol/L 08/27/2020 6:22 AM [facility] CO2 32(H) 22 - 29 mmol/L 08/27/2020 6:22 AM [facility] Glucose 109 70 - 115 mg/dL 08/27/2020 6:22 AM [facility] Calcium 7.4(L) 8.4 - 10.2 mg/dL 08/27/2020 6:22 AM [facility] Anion Gap 16 8 - 18 08/27/2020 6:22 AM [facility] BUN/Creatinine Ratio 15 7 - 23 08/27/2020 6:22 AM [facility] Osmolality Calculated 295 270 - 300 mOsm/kg 08/27/2020 6:22 AM [facility] eGFR >60 >60 mL/min/1.7 3 m2 08/27/2020 6:22 AM [facility] Blood BLOOD SPECIMEN / Unknown Lab Venipuncture / Unknown 08/27/2020 5:48 AM [facility] HELPER 08/27/2020 5:57 AM [facility] Dionte Comer MD LAB - CHEMISTRY ASH WEAVER [facility] Organization Address City/State/ZIP Co de Phone Number [facility] [address] [place] [address], [facility] [phone] * PTH INTACT W/O CALCIUM (08/27/2020 5:48 AM [facility]) PTH Intact 8.2 8.0 - 77.0 pg/mL 08/27/2020 6:27 AM [facility] Blood BLOOD SPECIMEN / Unknown Lab Venipuncture / Unknown 08/27/2020 5:48 AM [facility] HELPER 08/27/2020 5:56 AM [facility] HELPER Dionte Comer MD LAB - CHEMISTRY ASH WEAVER Performing Organization Address [facility]/ZIP Co de Phone Number [address] [address], [facility] [phone] * (ABNORMAL) CALCIUM IONIZED WHOLE BLOOD (08/27/2020 5:48 AM AC[facility]ER HELPER) Ionized Calcium Whole Blood 1.01 mmol/L 08/27/2020 6:12 AM AC[facility]ER HELPER [facility] Adjusted Ionized Calcium 1.02(L) 1.19 - 1.34 mmol/L 08/27/2020 6:12 AM AC[facility]ER HELPER [facility] pH Whole Blood 7.41 7.35 - 7.45 08/27/2020 6:12 AM AC[facility]ER HELPER [facility] Blood WHOLE BLOOD SPECIMEN / Unknown Lab Venipuncture / Unknown 08/27/2020 5:48 AM [facility]ER HELPER 08/27/2020 5:54 AM [facility]PER Dionte Comer MD LAB - CHEMISTRY ASH WEAVER [address] [address], [facility] [phone] * (ABNORMAL) CALCIUM IONIZED WHOLE BLOOD (08/26/2020 4:20 PM ACID[facility]ER HELPER) Ionized Calcium Whole Blood 1.05 mmol/L 08/26/2020 4:26 PM ACIDIZER HELPER [facility] Adjusted Ionized Calcium 1.03(L) 1.19 - 1.34 mmol/L 08/26/2020 4:26 PM ACIDIZER HELPER [facility] pH Whole Blood 7.36 7.35 - 7.45 08/26/2020 4:26 PM ACIDIZER HELPER [facility] Blood WHOLE BLOOD SPECIMEN / Unknown Lab Venipuncture / Unknown 08/26/2020 4:20 PM AC[facility]ER HELPER 08/26/2020 4:23 PM [facility] HELPER Dionte Comer MD LAB - CHEMISTRY ASH WEAVER [address] [address], [facility] [phone] * (ABNORMAL) CALCIUM IONIZED WHOLE BLOOD (08/26/2020 11:35 AM AC[facility] HELPER) Ionized Calcium Whole Blood 1.01 mmol/L 08/26/2020 11:41 AM AC[facility]ER HELPER [facility] Adjusted Ionized Calcium 0.99(L) 1.19 - 1.34 mmol/L 08/26/2020 11:41 AM [facility] pH Whole Blood 7.36 7.35 - 7.45 08/26/2020 11:41 AM [facility] Blood WHOLE BLOOD SPECIMEN / Unknown Lab Venipuncture / Unknown 08/26/2020 11:35 AM [facility] HELPER 08/26/2020 11:39 AM [facility]PER Dionte Comer MD LAB - CHEMISTRY ASH WEAVER [address] [address], [facility] [phone] * (ABNORMAL) CALCIUM IONIZED WHOLE BLOOD (08/26/2020 6:43 AM [facility] HELPER) Ionized Calcium Whole Blood 1.00 mmol/L 08/26/2020 6:50 AM AC[facility]ER HELPER [facility] Adjusted Ionized Calcium 1.01(L) 1.19 - 1.34 mmol/L 08/26/2020 6:50 AM ACIDIZER HELPER [facility] pH Whole Blood 7.42 7.35 - 7.45 08/26/2020 6:50 AM ACIDIZER HELPER [facility] Blood WHOLE BLOOD SPECIMEN / Unknown Lab Venipuncture / Unknown 08/26/2020 6:43 AM AC[facility]IZER HELPER 08/26/2020 6:48 AM [facility] HELPER Dionte Comer MD LAB - CHEMISTRY ASH WEAVER [address] [address], [facility] [phone] * (ABNORMAL) PHOSPHORUS BLOOD (08/26/2020 12:41 AM AC[facility] HELPER) Phosphorus 4.8(H) 2.3 - 4.7 mg/dL 08/26/2020 1:15 AM [facility] Blood BLOOD SPECIMEN / Unknown Lab Venipuncture / Unknown 08/26/2020 12:41 AM AC[facility]ER HELPER 08/26/2020 12:47 AM [facility] HELPER Dionte Comer MD LAB - CHEMISTRY ASH WEAVER [address] [address], [facility] [phone] * MAGNESIUM BLOOD (08/26/2020 12:41 AM [facility] HELPER) Magnesium 1.8 1.6 - 2.6 mg/dL 08/26/2020 1:15 AM [facility] Blood BLOOD SPECIMEN / Unknown Lab Venipuncture / Unknown 08/26/2020 12:41 AM [facility]ER HELPER 08/26/2020 12:47 AM [facility] HELPER Dionte Comer MD LAB - CHEMISTRY ASH WEAVER [address] [address], [facility] [phone] * CBC W/O DIFFERENTIAL (08/26/2020 12:41 AM AC[facility]ER HELPER) WBC 10.2 3.5 - 10.5 10? 3 /uL 08/26/2020 12:54 AM [facility] RBC 4.31 3.90 - 5.00 10? 6 /uL 08/26/2020 12:54 AM [facility] Hemoglobin 12.6 12.0 - 15.5 g/dL 08/26/2020 12:54 AM [facility] Hematocrit 38.4 35.0 - 45.0 % 08/26/2020 12:54 AM [facility] MCV 89.1 81.0 - 97.0 fL 08/26/2020 12:54 AM [facility] MCH 29.2 28.0 - 34.0 pg 08/26/2020 12:54 AM [facility] MCHC 32.8 32.0 - 36.0 g/dL 08/26/2020 12:54 AM [facility] Platelet Count 328 150 - 400 10? 3 /uL 08/26/2020 12:54 AM [facility] RDW-SD 39.5 36.0 - 50.0 fL 08/26/2020 12:54 AM [facility] RDW-CV 12.0 11.2 - 14.8 % 08/26/2020 12:54 AM [facility] MPV 9.4 9.3 - 12.8 fL 08/26/2020 12:54 AM [facility] nRBC Absolute 0.00 0 10? 3 /uL 08/26/2020 12:54 AM [facility] nRBC Auto 0.0 0 /100 WBC 08/26/2020 12:54 AM [facility] Blood BLOOD SPECIMEN / Unknown Lab Venipuncture / Unknown 08/26/2020 12:41 AM [facility]ER HELPER 08/26/2020 12:47 AM [facility] HELPER Dionte Comer MD LAB - HEMATOLOGY ORD ERABLES [address] [address], [facility] [phone] * (ABNORMAL) ALBUMIN BLOOD (08/26/2020 12:41 AM AC[facility]ER HELPER) Albumin 2.8(L) 3.4 - 5.0 g/dL 08/26/2020 1:15 AM [facility] Blood BLOOD SPECIMEN / Unknown Lab Venipuncture / Unknown 08/26/2020 12:41 AM AC[facility]ER HELPER 08/26/2020 12:47 AM [facility] HELPER Dionte Comer MD LAB - CHEMISTRY ORDE OWEN [address] [address], [place] [phone] * (ABNORMAL) BASIC METABOLIC PANEL (CALCIUM TOTAL) (08/26/2020 12:41 AM [facility]) Pathologist [facility] BUN 9 7 - 26 mg/dL 08/26/2020 1:15 AM [facility] Creatinine 0.6 0.6 - 1.2 mg/dL 08/26/2020 1:15 AM [facility] Sodium 144 136 - 145 mmol/L 08/26/2020 1:15 AM [facility] Potassium 3.6 3.5 - 4.5 mmol/L 08/26/2020 1:15 AM [facility] Chloride 99 98 - 107 mmol/L 08/26/2020 1:15 AM [facility] CO2 33(H) 22 - 29 mmol/L 08/26/2020 1:15 AM [facility] Glucose 127(H) 70 - 115 mg/dL 08/26/2020 1:15 AM [facility] Calcium 7.4(L) 8.4 - 10.2 mg/dL 08/26/2020 1:15 AM [facility] Anion Gap 16 8 - 18 08/26/2020 1:15 AM [facility] BUN/Creatinine Ratio 15 7 - 23 08/26/2020 1:15 AM [facility] Osmolality Calculated 298 270 - 300 mOsm/kg 08/26/2020 1:15 AM [facility] eGFR >60 >60 mL/min/1.7 3 m2 08/26/2020 1:15 AM [facility] Blood BLOOD SPECIMEN / Unknown Lab Venipuncture / Unknown 08/26/2020 12:41 AM [facility]ER HELPER 08/26/2020 12:47 AM [facility] Dionte Comer MD LAB - CHEMISTRY ASH WEAVER [facility] Organization Address City/State/ZIP Co de Phone Number [facility] [address] [place] [phone], [facility] [phone] * (ABNORMAL) PTH INTACT W/O CALCIUM (08/26/2020 12:41 AM [facility]) Pathologist [facility] PTH Intact 4.4(L) 8.0 - 77.0 pg/mL 08/26/2020 1:31 AM [facility] Blood BLOOD SPECIMEN / Unknown Lab Venipuncture / Unknown 08/26/2020 12:41 AM [facility]ER HELPER 08/26/2020 12:47 AM [facility] HELPER Dionte Comer MD LAB - CHEMISTRY ASH WEAVER [address] [address], [facility] [phone] * (ABNORMAL) CALCIUM IONIZED WHOLE BLOOD (08/26/2020 12:41 AM AC[facility]IZER HELPER) Ionized Calcium Whole Blood 1.03 mmol/L 08/26/2020 1:08 AM [facility] Adjusted Ionized Calcium 1.01(L) 1.19 - 1.34 mmol/L 08/26/2020 1:08 AM [facility] pH Whole Blood 7.36 7.35 - 7.45 08/26/2020 1:08 AM [facility] Blood WHOLE BLOOD SPECIMEN / Unknown Lab Venipuncture / Unknown 08/26/2020 12:41 AM [facility]ER HELPER 08/26/2020 12:47 AM [facility] HELPER Dionte Comer MD LAB - CHEMISTRY ASH WEAVER [address] [address], [facility] [phone] * (ABNORMAL) CALCIUM IONIZED WHOLE BLOOD (08/25/2020 4:06 PM AC[facility]ER HELPER) Ionized Calcium Whole Blood 1.01 mmol/L 08/25/2020 4:13 PM [facility] Adjusted Ionized Calcium 1.03(L) 1.19 - 1.34 mmol/L 08/25/2020 4:13 PM [facility] pH Whole Blood 7.43 7.35 - 7.45 08/25/2020 4:13 PM [facility] Blood WHOLE BLOOD SPECIMEN / Unknown Lab Venipuncture / Unknown 08/25/2020 4:06 PM [facility]ER HELPER 08/25/2020 4:10 PM [facility] HELPER Dionte Comer MD LAB - CHEMISTRY ASH WEAVER [address] [address], [place] [phone] * CALCIUM URINE RANDOM (08/25/2020 1:12 PM AC[facility]ER HELPER) Calcium Random Urine 5.5 Not Established mg/dL 08/25/2020 1:41 PM ACIDIZER HELPER [facility] Urine URINE SPECIMEN OBTAINED BY CLEAN CATCH PROCEDURE / Unknown Collection / Unknown 08/25/2020 1:12 PM AC[facility]IZER HELPER 08/25/2020 1:32 PM [facility] HELPER Dionte Comer MD LAB - URINE CHEMISTR Y ORDERABLES Performing Organization Address City/[facility]/ZIP Co de Phone Number [address] [address], [place] [phone] * (ABNORMAL) CALCIUM IONIZED WHOLE BLOOD (08/25/2020 10:53 AM AC[facility]IZER HELPER) Ionized Calcium Whole Blood 1.05 mmol/L 08/25/2020 11:09 AM ACIDIZER HELPER [facility] Adjusted Ionized Calcium 1.01(L) 1.19 - 1.34 mmol/L 08/25/2020 11:09 AM [facility] pH Whole Blood 7.33(L) 7.35 - 7.45 08/25/2020 11:09 AM [facility] Blood WHOLE BLOOD SPECIMEN / Unknown Lab Venipuncture / Unknown 08/25/2020 10:53 AM [facility]ER HELPER 08/25/2020 11:07 AM [facility] HELPER Dionte Comer MD LAB - CHEMISTRY ASH WEAVER Performing Organization Address City/[facility]/ZIP Co de Phone Number [address] [address], [place] [phone] * (ABNORMAL) CALCIUM IONIZED WHOLE BLOOD (08/25/2020 9:04 AM AC[facility]IZER HELPER) Ionized Calcium Whole Blood 1.00 mmol/L 08/25/2020 9:26 AM [facility] Adjusted Ionized Calcium 1.00(L) 1.19 - 1.34 mmol/L 08/25/2020 9:26 AM [facility] pH Whole Blood 7.40 7.35 - 7.45 08/25/2020 9:26 AM [facility] Blood WHOLE BLOOD SPECIMEN / Unknown Lab Venipuncture / Unknown 08/25/2020 9:04 AM [facility] HELPER 08/25/2020 9:24 AM [facility] HELPER Dionte Comer MD LAB - CHEMISTRY ASH WAEVER [address] [address], [facility] [phone] * (ABNORMAL) PHOSPHORUS BLOOD (08/25/2020 4:16 AM AC[facility]ER HELPER) Phosphorus 6.0(H) 2.3 - 4.7 mg/dL 08/25/2020 5:09 AM [facility] Blood BLOOD SPECIMEN / Unknown Venipuncture / Unknown 08/25/2020 4:16 AM [facility]ER HELPER 08/25/2020 4:42 AM [facility] HELPER Dionte Comer MD LAB - CHEMISTRY ASH WEAVER [address] [address], [place] [phone] * MAGNESIUM BLOOD (08/25/2020 4:16 AM AC[facility]ER HELPER) Magnesium 1.9 1.6 - 2.6 mg/dL 08/25/2020 5:09 AM ACIDIZER HELPER [facility] Blood BLOOD SPECIMEN / Unknown Venipuncture / Unknown 08/25/2020 4:16 AM AC[facility]IZER HELPER 08/25/2020 4:42 AM [facility] HELPER Dionte Comer MD LAB - CHEMISTRY ASH WEAVER [address] [address] [phone] * CBC W/O DIFFERENTIAL (08/25/2020 4:16 AM AC[facility]IZER HELPER) WBC 9.6 3.5 - 10.5 10? 3 /uL 08/25/2020 4:52 AM [facility] RBC 4.53 3.90 - 5.00 10? 6 /uL 08/25/2020 4:52 AM [facility] Hemoglobin 13.1 12.0 - 15.5 g/dL 08/25/2020 4:52 AM [facility] Hematocrit 40.6 35.0 - 45.0 % 08/25/2020 4:52 AM [facility] MCV 89.6 81.0 - 97.0 fL 08/25/2020 4:52 AM [facility] MCH 28.9 28.0 - 34.0 pg 08/25/2020 4:52 AM [facility] MCHC 32.3 32.0 - 36.0 g/dL 08/25/2020 4:52 AM [facility] Platelet Count 327 150 - 400 10? 3 /uL 08/25/2020 4:52 AM [facility] RDW-SD 40.0 36.0 - 50.0 fL 08/25/2020 4:52 AM [facility] RDW-CV 12.2 11.2 - 14.8 % 08/25/2020 4:52 AM [facility] MPV 10.1 9.3 - 12.8 fL 08/25/2020 4:52 AM [facility] nRBC Absolute 0.00 0 10? 3 /uL 08/25/2020 4:52 AM [facility] nRBC Auto 0.0 0 /100 WBC 08/25/2020 4:52 AM [facility] Blood BLOOD SPECIMEN / Unknown Venipuncture / Unknown 08/25/2020 4:16 AM [facility] HELPER 08/25/2020 4:42 AM [facility] HELPER Dionte Comer MD LAB - HEMATOLOGY ORD ERABLES [facility] [address] [place] [address], [facility] [phone] * (ABNORMAL) ALBUMIN BLOOD (08/25/2020 4:16 AM [facility] HELPER) Pathologist [facility] Albumin 2.8(L) 3.4 - 5.0 g/dL 08/25/2020 5:09 AM [facility] Blood BLOOD SPECIMEN / Unknown Venipuncture / Unknown 08/25/2020 4:16 AM AC[facility]ER HELPER 08/25/2020 4:42 AM [facility] HELPER Dionte Comer MD LAB - CHEMISTRY ASH WEAVER [facility] [address] [place] [address], [facility] [phone] * (ABNORMAL) BASIC METABOLIC PANEL (CALCIUM TOTAL) (08/25/2020 4:16 AM [facility] HEL[facility]) Pathologist [facility] BUN 13 7 - 26 mg/dL 08/25/2020 5:09 AM [facility] Creatinine 0.7 0.6 - 1.2 mg/dL 08/25/2020 5:09 AM [facility] Sodium 141 136 - 145 mmol/L 08/25/2020 5:09 AM [facility] Potassium 3.6 3.5 - 4.5 mmol/L 08/25/2020 5:09 AM [facility] Chloride 97(L) 98 - 107 mmol/L 08/25/2020 5:09 AM [facility] CO2 32(H) 22 - 29 mmol/L 08/25/2020 5:09 AM [facility] Glucose 116(H) 70 - 115 mg/dL 08/25/2020 5:09 AM [facility] Calcium 7.9(L) 8.4 - 10.2 mg/dL 08/25/2020 5:09 AM [facility] Anion Gap 16 8 - 18 08/25/2020 5:09 AM [facility] BUN/Creatinine Ratio 19 7 - 23 08/25/2020 5:09 AM [facility] Osmolality Calculated 293 270 - 300 mOsm/kg 08/25/2020 5:09 AM [facility] eGFR >60 >60 mL/min/1.7 3 m2 08/25/2020 5:09 AM AC[facility]ER HELPER [facility] Blood BLOOD SPECIMEN / Unknown Venipuncture / Unknown 08/25/2020 4:16 AM [facility] 08/25/2020 4:42 AM [facility] Dionte Comer MD LAB - CHEMISTRY [facility] [address] [address], [place] [phone] * (ABNORMAL) PTH INTACT W/O CALCIUM (08/25/2020 4:16 AM [facility]) PTH Intact <4.0(L) 8.0 - 77.0 pg/mL 08/25/2020 5:11 AM [facility] Blood BLOOD SPECIMEN / Unknown Venipuncture / Unknown 08/25/2020 4:16 AM [facility] 08/25/2020 4:42 AM [facility] Dionte Comer MD LAB - CHEMISTRY [facility] Performing Organization Address [facility]/ZIP Co de Phone Number [address] [address], [place] [phone] * (ABNORMAL) CALCIUM IONIZED WHOLE BLOOD (08/25/2020 4:16 AM [facility]) Ionized Calcium Whole Blood 1.04 mmol/L 08/25/2020 4:43 AM [facility] Adjusted Ionized Calcium 1.01(L) 1.19 - 1.34 mmol/L 08/25/2020 4:43 AM [facility] pH Whole Blood 7.35 7.35 - 7.45 08/25/2020 4:43 AM [facility] Blood WHOLE BLOOD SPECIMEN / Unknown Venipuncture / Unknown 08/25/2020 4:16 AM [facility] 08/25/2020 4:39 AM [facility] Dionte Comer MD LAB - CHEMISTRY [facility] [address] [address], [facility] [phone] * (ABNORMAL) CALCIUM IONIZED WHOLE BLOOD (08/24/2020 4:50 PM [facility]) Ionized Calcium Whole Blood 1.03 mmol/L 08/24/2020 5:01 PM [facility] Adjusted Ionized Calcium 1.05(L) 1.19 - 1.34 mmol/L 08/24/2020 5:01 PM [facility] pH Whole Blood 7.43 7.35 - 7.45 08/24/2020 5:01 PM [facility] Blood WHOLE BLOOD SPECIMEN / Unknown Venipuncture / Unknown 08/24/2020 4:50 PM [facility] 08/24/2020 4:59 PM [facility] Dionte Comer MD LAB - CHEMISTRY [facility] [address] [address], [facility] [phone] * (ABNORMAL) CALCIUM IONIZED WHOLE BLOOD (08/24/2020 10:42 AM [facility]) Ionized Calcium Whole Blood 1.04 mmol/L 08/24/2020 10:49 AM [facility] Adjusted Ionized Calcium 1.01(L) 1.19 - 1.34 mmol/L 08/24/2020 10:49 AM [facility] pH Whole Blood 7.35 7.35 - 7.45 08/24/2020 10:49 AM [facility] Blood WHOLE BLOOD SPECIMEN / Unknown Venipuncture / Unknown 08/24/2020 10:42 AM [facility] 08/24/2020 10:47 AM [facility] Dionte Comer MD LAB - CHEMISTRY [facility] [address] [address], [facility] [phone] * (ABNORMAL) CALCIUM IONIZED WHOLE BLOOD (08/24/2020 4:17 AM [facility]) Ionized Calcium Whole Blood 1.10 mmol/L 08/24/2020 4:35 AM [facility] Adjusted Ionized Calcium 1.08(L) 1.19 - 1.34 mmol/L 08/24/2020 4:35 AM [facility] pH Whole Blood 7.36 7.35 - 7.45 08/24/2020 4:35 AM [facility] Blood WHOLE BLOOD SPECIMEN / Unknown Venipuncture / Unknown 08/24/2020 4:17 AM [facility] 08/24/2020 4:33 AM [facility] Dionte Comer MD LAB - CHEMISTRY [facility] [address] [address], [facility] [phone] * CALCIUM URINE RANDOM (08/24/2020 2:48 AM [facility]) Pathologist [facility] Calcium Random Urine 13.6 Not Established mg/dL 08/24/2020 3:17 AM [facility] Urine URINE SPECIMEN OBTAINED BY CLEAN CATCH PROCEDURE / Unknown Collection / Unknown 08/24/2020 2:48 AM [facility] 08/24/2020 3:09 AM [facility] Dionte Comer MD LAB - URINE CHEMISTR Y ORDERABLES Performing Organization Address [facility]/ZIP Co de Phone Number [address] [address], [facility] [phone] * (ABNORMAL) ALBUMIN BLOOD (08/24/2020 12:05 AM [facility]) Albumin 2.9(L) 3.4 - 5.0 g/dL 08/24/2020 12:55 AM [facility] Blood BLOOD SPECIMEN / Unknown Venipuncture / Unknown 08/24/2020 12:05 AM [facility] 08/24/2020 12:29 AM [facility] Dionte Comer MD LAB - CHEMISTRY [facility] [address] [address], [facility] [phone] * (ABNORMAL) PTH INTACT W/O CALCIUM (08/24/2020 12:05 AM [facility]) [facility] PTH Intact <4.0(L) 8.0 - 77.0 pg/mL 08/24/2020 1:04 AM ACIDIZER HELPER [facility] Blood BLOOD SPECIMEN / Unknown Venipuncture / Unknown 08/24/2020 12:05 AM ACIDIZER HELPER 08/24/2020 12:29 AM ACIDIZER HELPER Dionte Comer MD LAB - CHEMISTRY ASH WEAVER [address] [address], [facility] [phone] * (ABNORMAL) PHOSPHORUS BLOOD (08/24/2020 12:05 AM ACIDIZER HELPER) [facility] Phosphorus 6.0(H) 2.3 - 4.7 mg/dL 08/24/2020 12:55 AM [facility] Blood BLOOD SPECIMEN / Unknown Venipuncture / Unknown 08/24/2020 12:05 AM ACIDIZER HELPER 08/24/2020 12:29 AM ACIDIZER HELPER Dionte Comer MD LAB - CHEMISTRY ASH WEAVER [address] [address], [facility] [phone] * (ABNORMAL) CBC W/O DIFFERENTIAL (08/24/2020 12:05 AM ACIDIZER HELPER) [facility] WBC 11.6(H) 3.5 - 10.5 10? 3 /uL 08/24/2020 12:58 AM [facility] RBC 4.28 3.90 - 5.00 10? 6 /uL 08/24/2020 12:58 AM [facility] Hemoglobin 12.5 12.0 - 15.5 g/dL 08/24/2020 12:58 AM [facility] Hematocrit 37.8 35.0 - 45.0 % 08/24/2020 12:58 AM [facility] MCV 88.3 81.0 - 97.0 fL 08/24/2020 12:58 AM [facility] MCH 29.2 28.0 - 34.0 pg 08/24/2020 12:58 AM [facility] MCHC 33.1 32.0 - 36.0 g/dL 08/24/2020 12:58 AM [facility] Platelet Count 282 150 - 400 10? 3 /uL 08/24/2020 12:58 AM [facility] RDW-SD 39.6 36.0 - 50.0 fL 08/24/2020 12:58 AM [facility] RDW-CV 12.3 11.2 - 14.8 % 08/24/2020 12:58 AM [facility] MPV 10.1 9.3 - 12.8 fL 08/24/2020 12:58 AM [facility] nRBC Absolute 0.00 0 10? 3 /uL 08/24/2020 12:58 AM [facility] nRBC Auto 0.0 0 /100 WBC 08/24/2020 12:58 AM [facility] Blood BLOOD SPECIMEN / Unknown Venipuncture / Unknown 08/24/2020 12:05 AM ACIDIZER HELPER 08/24/2020 12:25 AM [facility] Dionte Comer MD LAB - HEMATOLOGY ORD ERABLES Performing Organization Address City/State/[facility] Co de Phone Number [facility] [address] [place] [address], [facility] [phone] * (ABNORMAL) BASIC METABOLIC PANEL (CALCIUM TOTAL) (08/24/2020 12:05 AM [facility]) BUN 8 7 - 26 mg/dL 08/24/2020 12:55 AM [facility] Creatinine 0.5(L) 0.6 - 1.2 mg/dL 08/24/2020 12:55 AM [facility] Sodium 142 136 - 145 mmol/L 08/24/2020 12:55 AM [facility] Potassium 3.3(L) 3.5 - 4.5 mmol/L 08/24/2020 12:55 AM [facility] Chloride 96(L) 98 - 107 mmol/L 08/24/2020 12:55 AM [facility] CO2 34(H) 22 - 29 mmol/L 08/24/2020 12:55 AM [facility] Glucose 112 70 - 115 mg/dL 08/24/2020 12:55 AM [facility] Calcium 8.3(L) 8.4 - 10.2 mg/dL 08/24/2020 12:55 AM [facility] Anion Gap 15 8 - 18 08/24/2020 12:55 AM [facility] BUN/Creatinine Ratio 16 7 - 23 08/24/2020 12:55 AM [facility] Osmolality Calculated 293 270 - 300 mOsm/kg 08/24/2020 12:55 AM [facility] eGFR >60 >60 mL/min/1.7 3 m2 08/24/2020 12:55 AM [facility] Blood BLOOD SPECIMEN / Unknown Venipuncture / Unknown 08/24/2020 12:05 AM ACIDIZER HELPER 08/24/2020 12:29 AM ACIDIZER HELPER Dionte Comer MD LAB - CHEMISTRY ORDSrinivas WEAVER [facility] Organization Address City/State/ZIP Co de Phone Number [address] [address], [facility] [phone] * (ABNORMAL) CALCIUM IONIZED WHOLE BLOOD (08/24/2020 12:05 AM ACIDIZER HELPER) Ionized Calcium Whole Blood 1.11 mmol/L 08/24/2020 12:28 AM [facility] Adjusted Ionized Calcium 1.09(L) 1.19 - 1.34 mmol/L 08/24/2020 12:28 AM [facility] pH Whole Blood 7.36 7.35 - 7.45 08/24/2020 12:28 AM [facility] Blood WHOLE BLOOD SPECIMEN / Unknown Venipuncture / Unknown 08/24/2020 12:05 AM ACIDIZER HELPER 08/24/2020 12:25 AM ACIDIZER HELPER Dionte Comer MD LAB - CHEMISTRY ORDE RABLES [address] [address], [facility] [phone] * (ABNORMAL) CALCIUM IONIZED WHOLE BLOOD (08/23/2020 5:31 PM ACIDIZER HELPER) Ionized Calcium Whole Blood 1.95 mmol/L 08/23/2020 5:40 PM ACIDIZER HELPER [facility] Adjusted Ionized Calcium 1.94(H) 1.19 - 1.34 mmol/L 08/23/2020 5:40 PM ACIDIZER HELPER [facility] pH Whole Blood 7.39 7.35 - 7.45 08/23/2020 5:40 PM ACIDIZER HELPER [facility] Blood WHOLE BLOOD SPECIMEN / Unknown Venipuncture / Unknown 08/23/2020 5:31 PM ACIDIZER HELPER 08/23/2020 5:38 PM ACIDIZER HELPER Dionte Comer MD LAB - CHEMISTRY ASH WEAVER Performing Organization Address City/[facility]/ZIP Co de Phone Number [address] [address], [facility] [phone] * MAGNESIUM BLOOD (08/23/2020 10:49 AM ACIDIZER HELPER) [facility] Magnesium 1.8 1.6 - 2.6 mg/dL 08/23/2020 11:31 AM ACIDIZER HELPER [facility] Blood BLOOD SPECIMEN / Unknown Venipuncture / Unknown 08/23/2020 10:49 AM ACIDIZER HELPER 08/23/2020 11:00 AM ACIDIZER HELPER Dionte Comer MD LAB - CHEMISTRY ASH WEAVER [address] [address], [facility] [phone] * (ABNORMAL) CALCIUM IONIZED WHOLE BLOOD (08/23/2020 10:49 AM ACIDIZER HELPER) Ionized Calcium Whole Blood 0.97 mmol/L 08/23/2020 10:59 AM ACIDIZER HELPER [facility] Adjusted Ionized Calcium 0.95(L) 1.19 - 1.34 mmol/L 08/23/2020 10:59 AM [facility] pH Whole Blood 7.36 7.35 - 7.45 08/23/2020 10:59 AM [facility] Blood WHOLE BLOOD SPECIMEN / Unknown Venipuncture / Unknown 08/23/2020 10:49 AM ACIDIZER HELPER 08/23/2020 10:57 AM ACIDIZER HELPER Dionte Comer MD LAB - CHEMISTRY ORDE RABLES [address] [address], [facility] [phone] * CALCIUM URINE RANDOM (08/23/2020 5:04 AM ACIDIZER HELPER) Pathologist [facility] Calcium Random Urine 8.3 Not Established mg/dL 08/23/2020 5:29 AM [facility] Urine URINE SPECIMEN OBTAINED BY CLEAN CATCH PROCEDURE / Unknown Collection / Unknown 08/23/2020 5:04 AM ACIDIZER HELPER 08/23/2020 5:20 AM ACIDIZER HELPER Dionte Comer MD LAB - URINE CHEMISTR Y ORDERABLES Performing Organization Address City/[facility]/ZIP Co de Phone Number [address] [address], [facility] [phone] * (ABNORMAL) BASIC METABOLIC PANEL (CALCIUM TOTAL) (08/23/2020 4:28 AM ACIDIZER HELPER) Pathologist [facility] BUN 7 7 - 26 mg/dL 08/23/2020 10:07 AM [facility] Creatinine 0.5(L) 0.6 - 1.2 mg/dL 08/23/2020 10:07 AM [facility] Sodium 142 136 - 145 mmol/L 08/23/2020 10:07 AM [facility] Potassium 3.5 3.5 - 4.5 mmol/L 08/23/2020 10:07 AM [facility] Chloride 98 98 - 107 mmol/L 08/23/2020 10:07 AM [facility] CO2 32(H) 22 - 29 mmol/L 08/23/2020 10:07 AM [facility] Glucose 99 70 - 115 mg/dL 08/23/2020 10:07 AM [facility] Calcium 7.3(L) 8.4 - 10.2 mg/dL 08/23/2020 10:07 AM [facility] Anion Gap 16 8 - 18 08/23/2020 10:07 AM [facility] BUN/Creatinine Ratio 14 7 - 23 08/23/2020 10:07 AM [facility] Osmolality Calculated 292 270 - 300 mOsm/kg 08/23/2020 10:07 AM [facility] eGFR >60 >60 mL/min/1.7 3 m2 08/23/2020 10:07 AM [facility] Blood BLOOD SPECIMEN / Unknown Venipuncture / Unknown 08/23/2020 4:28 AM ACIDIZER HELPER 08/23/2020 4:35 AM ACIDIZER HELPER Dionte Comer MD LAB - CHEMISTRY ASH WEAVER Performing Organization Address City/[facility]/ZIP Co de Phone Number [address] [address], [place] [phone] * (ABNORMAL) CALCIUM IONIZED WHOLE BLOOD (08/23/2020 4:28 AM ACIDIZER HELPER) [facility] Ionized Calcium Whole Blood 1.01 mmol/L 08/23/2020 4:36 AM [facility] Adjusted Ionized Calcium 0.98(L) 1.19 - 1.34 mmol/L 08/23/2020 4:36 AM [facility] pH Whole Blood 7.35 7.35 - 7.45 08/23/2020 4:36 AM [facility] Blood WHOLE BLOOD SPECIMEN / Unknown Venipuncture / Unknown 08/23/2020 4:28 AM ACIDIZER HELPER 08/23/2020 4:32 AM ACIDIZER HELPER Dionte Comer MD LAB - CHEMISTRY ASH WEAVER Performing Organization Address City/[facility]/ZIP Co de Phone Number [address] [address], [place] [phone] * (ABNORMAL) ALBUMIN BLOOD (08/23/2020 4:28 AM ACIDIZER HELPER) [facility] Albumin 2.8(L) 3.4 - 5.0 g/dL 08/23/2020 4:54 AM ACIDIZER HELPER [facility] Blood BLOOD SPECIMEN / Unknown Venipuncture / Unknown 08/23/2020 4:28 AM ACIDIZER HELPER 08/23/2020 4:35 AM ACIDIZER HELPER Dionte Comer MD LAB - CHEMISTRY ASH WEAVER Performing Organization Address City/[facility]/ZIP Co de Phone Number [address] [address], [place] [phone] * (ABNORMAL) PTH INTACT W/O CALCIUM (08/23/2020 4:28 AM ACIDIZER HELPER) [facility] PTH Intact <4.0(L) 8.0 - 77.0 pg/mL 08/23/2020 5:11 AM ACIDIZER HELPER [facility] Blood BLOOD SPECIMEN / Unknown Venipuncture / Unknown 08/23/2020 4:28 AM ACIDIZER HELPER 08/23/2020 4:35 AM ACIDIZER HELPER Dionte Comer MD LAB - CHEMISTRY ASH WEAVER Performing Organization Address City/[facility]/ZIP Co de Phone Number [address] [address], [place] [phone] * PREPARE (CROSSMATCH) RBC UNIT(S), 2 Units (08/23/2020 2:17 AM ACIDIZER HELPER) [facility] Unit Description AS1 LR PRBC [facility] BLOOD BANK LAB Unit ABO B [facility] BLOOD BANK LAB Unit Rh POS [facility] BLOOD BANK LAB Product Number R02 [facility] B LOOD BANK LAB Unit Donor # [id number] [facility] BLOOD BANK LAB Unit Status released [facility] BLOO D BANK LAB Product Code [id number] [facility] BLO OD BANK LAB Blood Type Barcode 7300 [facility] BLOOD BANK LAB Expiration Date [id number] S BLOOD BANK LAB Unit Description AS1 LR PRBC [facility] BLOOD BANK LAB Unit ABO B [facility] BLOOD BANK LAB Unit Rh POS [facility] BLOOD BANK LAB Product Number R02 [facility] B LOOD BANK LAB Unit Donor # [id number] [facility] BLOOD BANK LAB Unit Status released [facility] BLOO D BANK LAB Product Code [id number] [facility] BLO OD BANK LAB Blood Type Barcode 7300 [facility] BLOOD BANK LAB Expiration Date [id number] S BLOOD BANK LAB Blood Bank BLOOD SPECIMEN / Unknown 08/19/2020 6:25 AM ACIDIZER HELPER Dionte Comer MD LAB - BLOOD BANK ORD ERABLES Performing Organization Address City/[facility]/ZIP Co de Phone Number [facility] BLOOD BANK LAB [address] [place] [address], [facility] [phone] * (ABNORMAL) PHOSPHORUS BLOOD (08/22/2020 11:50 PM ACIDIZER HELPER) Phosphorus 5.0(H) 2.3 - 4.7 mg/dL 08/23/2020 12:22 AM [facility] Blood BLOOD SPECIMEN / Unknown Venipuncture / Unknown 08/22/2020 11:50 PM ACIDIZER HELPER 08/22/2020 6:16 PM ACIDIZER HELPER Dionte Comer MD LAB - CHEMISTRY ORDE RABHORTENCIA Performing Organization Address City/[facility]/ZIP Co de Phone Number [facility] [address] [place] [address], [facility] [phone] * (ABNORMAL) CBC W/O DIFFERENTIAL (08/22/2020 11:50 PM ACIDIZER HELPER) WBC 13.1(H) 3.5 - 10.5 10? 3 /uL 08/23/2020 12:02 AM [facility] RBC 3.91 3.90 - 5.00 10? 6 /uL 08/23/2020 12:02 AM [facility] Hemoglobin 11.4(L) 12.0 - 15.5 g/dL 08/23/2020 12:02 AM [facility] Hematocrit 35.4 35.0 - 45.0 % 08/23/2020 12:02 AM [facility] MCV 90.5 81.0 - 97.0 fL 08/23/2020 12:02 AM [facility] MCH 29.2 28.0 - 34.0 pg 08/23/2020 12:02 AM [facility] MCHC 32.2 32.0 - 36.0 g/dL 08/23/2020 12:02 AM [facility] Platelet Count 273 150 - 400 10? 3 /uL 08/23/2020 12:02 AM [facility] RDW-SD 40.9 36.0 - 50.0 fL 08/23/2020 12:02 AM [facility] RDW-CV 12.4 11.2 - 14.8 % 08/23/2020 12:02 AM [facility] MPV 9.6 9.3 - 12.8 fL 08/23/2020 12:02 AM [facility] nRBC Absolute 0.00 0 10? 3 /uL 08/23/2020 12:02 AM [facility] nRBC Auto 0.0 0 /100 WBC 08/23/2020 12:02 AM [facility] Blood BLOOD SPECIMEN / Unknown Venipuncture / Unknown 08/22/2020 11:50 PM ACIDIZER HELPER 08/22/2020 6:16 PM ACIDIZER HELPER Dionte Comer MD LAB - HEMATOLOGY ORD ERABLES [facility] [address] [place] [address], [facility] [phone] * (ABNORMAL) BASIC METABOLIC PANEL (CALCIUM TOTAL) (08/22/2020 11:50 PM ACIDIZER HELPER) BUN 6(L) 7 - 26 mg/dL 08/23/2020 12:22 AM [facility] Creatinine 0.6 0.6 - 1.2 mg/dL 08/23/2020 12:22 AM [facility] Sodium 145 136 - 145 mmol/L 08/23/2020 12:22 AM [facility] Potassium 3.6 3.5 - 4.5 mmol/L 08/23/2020 12:22 AM [facility] Chloride 99 98 - 107 mmol/L 08/23/2020 12:22 AM [facility] CO2 35(H) 22 - 29 mmol/L 08/23/2020 12:22 AM [facility] Glucose 104 70 - 115 mg/dL 08/23/2020 12:22 AM [facility] Calcium 7.6(L) 8.4 - 10.2 mg/dL 08/23/2020 12:22 AM [facility] Anion Gap 15 8 - 18 08/23/2020 12:22 AM [facility] BUN/Creatinine Ratio 10 7 - 23 08/23/2020 12:22 AM [facility] Osmolality Calculated 298 270 - 300 mOsm/kg 08/23/2020 12:22 AM [facility] eGFR >60 >60 mL/min/1.7 3 m2 08/23/2020 12:22 AM [facility] Blood BLOOD SPECIMEN / Unknown Venipuncture / Unknown 08/22/2020 11:50 PM ACIDIZER HELPER 08/22/2020 6:16 PM ACIDIZER HELPER Dionte Comer MD LAB - CHEMISTRY ASH WEAVER [address] [address], [place] [phone] * (ABNORMAL) CALCIUM IONIZED WHOLE BLOOD (08/22/2020 11:50 PM ACIDIZER HELPER) Ionized Calcium Whole Blood 1.02 mmol/L 08/22/2020 11:55 PM [facility] Adjusted Ionized Calcium 0.99(L) 1.19 - 1.34 mmol/L 08/22/2020 11:55 PM [facility] pH Whole Blood 7.34(L) 7.35 - 7.45 08/22/2020 11:55 PM [facility] Blood WHOLE BLOOD SPECIMEN / Unknown Venipuncture / Unknown 08/22/2020 11:50 PM ACIDIZER HELPER 08/22/2020 11:54 PM ACIDIZER HELPER Dionte Comer MD LAB - CHEMISTRY ASH WEAVER [address] [address], [place] [phone] * (ABNORMAL) CALCIUM IONIZED WHOLE BLOOD (08/22/2020 4:36 PM ACIDIZER HELPER) Ionized Calcium Whole Blood 0.93 mmol/L 08/22/2020 4:43 PM [facility] Adjusted Ionized Calcium 0.92(L) 1.19 - 1.34 mmol/L 08/22/2020 4:43 PM [facility] pH Whole Blood 7.39 7.35 - 7.45 08/22/2020 4:43 PM [facility] Blood WHOLE BLOOD SPECIMEN / Unknown Venipuncture / Unknown 08/22/2020 4:36 PM ACIDIZER HELPER 08/22/2020 4:41 PM [facility] Dionte Comer MD LAB - CHEMISTRY ASH WEAVER [facility] Organization Address City/State/[facility] Co de Phone Number [facility] [address] [place] [address], [facility] [phone] * (ABNORMAL) RENAL FUNCTION PANEL (08/22/2020 11:05 AM [facility]) Pathologist [facility] BUN 6(L) 7 - 26 mg/dL 08/22/2020 11:36 AM [facility] Creatinine 0.5(L) 0.6 - 1.2 mg/dL 08/22/2020 11:36 AM [facility] Sodium 145 136 - 145 mmol/L 08/22/2020 11:36 AM [facility] Potassium 3.9 3.5 - 4.5 mmol/L 08/22/2020 11:36 AM [facility] Chloride 99 98 - 107 mmol/L 08/22/2020 11:36 AM [facility] CO2 33(H) 22 - 29 mmol/L 08/22/2020 11:36 AM [facility] Glucose 118(H) 70 - 115 mg/dL 08/22/2020 11:36 AM [facility] Albumin 3.0(L) 3.4 - 5.0 g/dL 08/22/2020 11:36 AM [facility] Calcium 7.5(L) 8.4 - 10.2 mg/dL 08/22/2020 11:36 AM [facility] Phosphorus 4.9(H) 2.3 - 4.7 mg/dL 08/22/2020 11:36 AM [facility] Anion Gap 17 8 - 18 08/22/2020 11:36 AM [facility] BUN/Creatinine Ratio 12 7 - 23 08/22/2020 11:36 AM [facility] Osmolality Calculated 299 270 - 300 mOsm/kg 08/22/2020 11:36 AM [facility] eGFR >60 >60 mL/min/1.7 3 m2 08/22/2020 11:36 AM [facility] Blood BLOOD SPECIMEN / Unknown Venipuncture / Unknown 08/22/2020 11:05 AM ACIDIZER HELPER 08/22/2020 11:12 AM ACIDIZER HELPER Dionte Comer MD LAB - CHEMISTRY ASH WEAVER Performing Organization Address City/[facility]/ZIP Co de Phone Number [address] [address], [facility] [phone] * MAGNESIUM BLOOD (08/22/2020 11:05 AM ACIDIZER HELPER) Magnesium 1.9 1.6 - 2.6 mg/dL 08/22/2020 11:36 AM [facility] Blood BLOOD SPECIMEN / Unknown Venipuncture / Unknown 08/22/2020 11:05 AM ACIDIZER HELPER 08/22/2020 11:12 AM ACIDIZER HELPER Dionte Comer MD LAB - CHEMISTRY ASH WEAVER [address] [address], [facility] [phone] * (ABNORMAL) CALCIUM IONIZED WHOLE BLOOD (08/22/2020 11:05 AM ACIDIZER HELPER) Ionized Calcium Whole Blood 1.04 mmol/L 08/22/2020 11:12 AM [facility] Adjusted Ionized Calcium 1.01(L) 1.19 - 1.34 mmol/L 08/22/2020 11:12 AM [facility] pH Whole Blood 7.35 7.35 - 7.45 08/22/2020 11:12 AM ACIDIZER HELPER [facility] Blood WHOLE BLOOD SPECIMEN / Unknown Venipuncture / Unknown 08/22/2020 11:05 AM ACIDIZER HELPER 08/22/2020 11:11 AM ACIDIZER HELPER Dionte Comer MD LAB - CHEMISTRY ASH WEAVER [address] [address], [facility] [phone] * (ABNORMAL) CALCIUM IONIZED WHOLE BLOOD (08/22/2020 5:04 AM ACIDIZER HELPER) Ionized Calcium Whole Blood 1.11 mmol/L 08/22/2020 5:09 AM [facility] Adjusted Ionized Calcium 1.08(L) 1.19 - 1.34 mmol/L 08/22/2020 5:09 AM [facility] pH Whole Blood 7.35 7.35 - 7.45 08/22/2020 5:09 AM [facility] Blood WHOLE BLOOD SPECIMEN / Unknown Venipuncture / Unknown 08/22/2020 5:04 AM ACIDIZER HELPER 08/22/2020 5:07 AM ACIDIZER HELPER Dionte Comer MD LAB - CHEMISTRY ASH WEAVER [address] [address], [place] [phone] * PHOSPHORUS BLOOD (08/21/2020 11:44 PM ACIDIZER HELPER) Phosphorus 4.4 2.3 - 4.7 mg/dL 08/22/2020 12:20 AM [facility] Blood BLOOD SPECIMEN / Unknown Venipuncture / Unknown 08/21/2020 11:44 PM ACIDIZER HELPER 08/21/2020 6:16 PM ACIDIZER HELPER Dionte Comer MD LAB - CHEMISTRY ASH WEAVER [address] [address], [place] [phone] * MAGNESIUM BLOOD (08/21/2020 11:44 PM ACIDIZER HELPER) Pathologist [facility] Magnesium 1.6 1.6 - 2.6 mg/dL 08/22/2020 12:20 AM [facility] Blood BLOOD SPECIMEN / Unknown Venipuncture / Unknown 08/21/2020 11:44 PM ACIDIZER HELPER 08/21/2020 6:16 PM ACIDIZER HELPER Dionte Comer MD LAB - CHEMISTRY ASH WEAVER [facility] [address] [place] [address], [facility] [phone] * (ABNORMAL) CBC W/O DIFFERENTIAL (08/21/2020 11:44 PM ACIDIZER HELPER) Pathologist [facility] WBC 10.3 3.5 - 10.5 10? 3 /uL 08/21/2020 11:55 PM [facility] RBC 3.94 3.90 - 5.00 10? 6 /uL 08/21/2020 11:55 PM [facility] Hemoglobin 11.4(L) 12.0 - 15.5 g/dL 08/21/2020 11:55 PM [facility] Hematocrit 35.7 35.0 - 45.0 % 08/21/2020 11:55 PM [facility] MCV 90.6 81.0 - 97.0 fL 08/21/2020 11:55 PM [facility] MCH 28.9 28.0 - 34.0 pg 08/21/2020 11:55 PM [facility] MCHC 31.9(L) 32.0 - 36.0 g/dL 08/21/2020 11:55 PM [facility] Platelet Count 270 150 - 400 10? 3 /uL 08/21/2020 11:55 PM [facility] RDW-SD 41.8 36.0 - 50.0 fL 08/21/2020 11:55 PM [facility] RDW-CV 12.4 11.2 - 14.8 % 08/21/2020 11:55 PM [facility] MPV 9.6 9.3 - 12.8 fL 08/21/2020 11:55 PM [facility] nRBC Absolute 0.00 0 10? 3 /uL 08/21/2020 11:55 PM [facility] nRBC Auto 0.0 0 /100 WBC 08/21/2020 11:55 PM [facility] Blood BLOOD SPECIMEN / Unknown Venipuncture / Unknown 08/21/2020 11:44 PM ACIDIZER HELPER 08/21/2020 6:16 PM ACIDIZER HELPER Dionte Comer MD LAB - HEMATOLOGY ORD ERABLES [facility] [address] [place] [address], [facility] [phone] * (ABNORMAL) BASIC METABOLIC PANEL (CALCIUM TOTAL) (08/21/2020 11:44 PM ACIDIZER HELPER) BUN 5(L) 7 - 26 mg/dL 08/22/2020 12:20 AM [facility] Creatinine 0.6 0.6 - 1.2 mg/dL 08/22/2020 12:20 AM [facility] Sodium 144 136 - 145 mmol/L 08/22/2020 12:20 AM [facility] Potassium 3.6 3.5 - 4.5 mmol/L 08/22/2020 12:20 AM [facility] Chloride 101 98 - 107 mmol/L 08/22/2020 12:20 AM [facility] CO2 34(H) 22 - 29 mmol/L 08/22/2020 12:20 AM [facility] Glucose 117(H) 70 - 115 mg/dL 08/22/2020 12:20 AM [facility] Calcium 8.2(L) 8.4 - 10.2 mg/dL 08/22/2020 12:20 AM [facility] Anion Gap 13 8 - 18 08/22/2020 12:20 AM [facility] BUN/Creatinine Ratio 8 7 - 23 08/22/2020 12:20 AM [facility] Osmolality Calculated 296 270 - 300 mOsm/kg 08/22/2020 12:20 AM [facility] eGFR >60 >60 mL/min/1.7 3 m2 08/22/2020 12:20 AM [facility] Blood BLOOD SPECIMEN / Unknown Venipuncture / Unknown 08/21/2020 11:44 PM [facility] 08/21/2020 6:16 PM [facility] Dionte Comer MD LAB - CHEMISTRY [facility] [address] [address], [facility] [phone] * (ABNORMAL) CALCIUM IONIZED WHOLE BLOOD (08/21/2020 11:43 PM [facility]) Ionized Calcium Whole Blood 1.17 mmol/L 08/21/2020 11:50 PM [facility] Adjusted Ionized Calcium 1.15(L) 1.19 - 1.34 mmol/L 08/21/2020 11:50 PM [facility] pH Whole Blood 7.37 7.35 - 7.45 08/21/2020 11:50 PM [facility] Blood WHOLE BLOOD SPECIMEN / Unknown Venipuncture / Unknown 08/21/2020 11:43 PM [facility] 08/21/2020 11:49 PM [facility] Dionte Comer MD LAB - CHEMISTRY [facility] [address] [address], [facility] [phone] * (ABNORMAL) CALCIUM IONIZED WHOLE BLOOD (08/21/2020 5:34 PM [facility]) Ionized Calcium Whole Blood 1.08 mmol/L 08/21/2020 5:44 PM [facility] Adjusted Ionized Calcium 1.06(L) 1.19 - 1.34 mmol/L 08/21/2020 5:44 PM [facility] pH Whole Blood 7.36 7.35 - 7.45 08/21/2020 5:44 PM [facility] Blood WHOLE BLOOD SPECIMEN / Unknown Venipuncture / Unknown 08/21/2020 5:34 PM [facility] 08/21/2020 5:42 PM [facility] Dionte Comer MD LAB - CHEMISTRY [facility] [address] [address], [facility] [phone] * MAGNESIUM BLOOD (08/21/2020 12:01 PM [facility]) Magnesium 1.7 1.6 - 2.6 mg/dL 08/21/2020 12:38 PM [facility] Blood BLOOD SPECIMEN / Unknown Venipuncture / Unknown 08/21/2020 12:01 PM [facility] 08/21/2020 12:16 PM [facility] Dionte Comer MD LAB - CHEMISTRY [facility] Performing Organization Address [facility] Co de Phone Number [address] [address], [facility] [phone] * (ABNORMAL) CALCIUM IONIZED WHOLE BLOOD (08/21/2020 11:07 AM [facility]) Pathologist [facility] Ionized Calcium Whole Blood 1.09 mmol/L 08/21/2020 11:13 AM [facility] Adjusted Ionized Calcium 1.08(L) 1.19 - 1.34 mmol/L 08/21/2020 11:13 AM [facility] pH Whole Blood 7.39 7.35 - 7.45 08/21/2020 11:13 AM [facility] Blood WHOLE BLOOD SPECIMEN / Unknown Venipuncture / Unknown 08/21/2020 11:07 AM [facility] 08/21/2020 11:11 AM [facility] Dionte Comer MD LAB - CHEMISTRY [facility] Performing Organization Address City/[facility]/ZIP Co de Phone Number [address] [address], [facility] [phone] * (ABNORMAL) THYROGLOBULIN BY ANTONIETA RFLXED (08/21/2020 4:25 AM [facility]) Thyroglobulin by ANTONIETA 192.2(H) 1.5 - 38.5 ng/mL 08/22/2020 6:07 PM [facility] ([facility]) Comment: According to the National [employer] [...] Unknown Venipuncture / Unknown 08/21/2020 4:25 AM ACIDIZER HELPER 08/21/2020 4:49 AM ACIDIZER HELPER Narrative [facility] ([facility]) - 08/22/2020 6:07 PM ACIDIZER HELPER Performed at: ??01 - [address] ??[id number] Senior Clinical Research Scientist: Oral Melendez PhD, Phone: ??[phone] Dionte Comer MD LAB - CHEMISTRY ASH WEAVER Performing Organization Address City/[facility]/ZIP Co de Phone Number [facility] ([facility]) [address] [place] [address], [facility] * (ABNORMAL) CALCIUM IONIZED WHOLE BLOOD (08/21/2020 4:25 AM ACIDIZER HELPER) Ionized Calcium Whole Blood 1.14 mmol/L 08/21/2020 4:31 AM [facility] Adjusted Ionized Calcium 1.12(L) 1.19 - 1.34 mmol/L 08/21/2020 4:31 AM [facility] pH Whole Blood 7.37 7.35 - 7.45 08/21/2020 4:31 AM [facility] Blood WHOLE BLOOD SPECIMEN / Unknown Venipuncture / Unknown 08/21/2020 4:25 AM ACIDIZER HELPER 08/21/2020 4:28 AM ACIDIZER HELPER Dionte Comer MD LAB - CHEMISTRY ASH WEAVER [facility] [address] [place] [address] [phone] * THYROGLOBULIN REFLEX PROFILE (08/21/2020 4:25 AM ACIDIZER HELPER) Thyroglobulin Antibody <1.0 0.0 - 0.9 IU/mL 08/22/2020 6:07 PM ACIDIZER HELPER [facility] ([facility]) Comment:Thyroglobulin Antibo dy measured by [employer] [employer] Blood BLOOD SPECIMEN / Unknown Venipuncture / Unknown 08/21/2020 4:25 AM ACIDIZER HELPER 08/21/2020 4:49 AM ACIDIZER HELPER Narrative [facility] ([facility]) - 08/22/2020 6:07 PM ACIDIZER HELPER Performed at: ??01 - [facility] [address] [place], [place] ??[id number] Senior Clinical Research Scientist: Oral Melendez PhD, Phone: ??[phone] Dionte Comer MD LAB - CHEMISTRY ASH WEAVER Performing Organization Address City/State/[facility] Co de Phone Number [facility] ([facility]) [address] [place] [address] * VITAMIN D 25-HYDROXY (08/21/2020 4:25 AM ACIDIZER HELPER) Vitamin D, 25 Hydroxy 32.0 See comment: ng/mL 08/21/2020 5:18 AM ACIDIZER HELPER [facility] Comment: The recommendations for [...] 2010 ? Blood BLOOD SPECIMEN / Unknown Venipuncture / Unknown 08/21/2020 4:25 AM ACIDIZER HELPER 08/21/2020 4:29 AM ACIDIZER HELPER Dionte Comer MD LAB - CHEMISTRY ASH WEAVER Performing Organization Address [facility]/ZIP Co de Phone Number [address] [address], [employer] [phone] * PHOSPHORUS BLOOD (08/20/2020 11:24 PM ACIDIZER HELPER) Phosphorus 4.5 2.3 - 4.7 mg/dL 08/21/2020 12:00 AM ACIDIZER HELPER [facility] Blood BLOOD SPECIMEN / Unknown Venipuncture / Unknown 08/20/2020 11:24 PM ACIDIZER HELPER 08/20/2020 6:16 PM ACIDIZER HELPER Dionte Comer MD LAB - CHEMISTRY ASH WEAVER Performing Organization Address [facility] de Phone Number [address] [address], [place] [phone] * (ABNORMAL) MAGNESIUM BLOOD (08/20/2020 11:24 PM ACIDIZER HELPER) Magnesium 1.5(L) 1.6 - 2.6 mg/dL 08/21/2020 12:00 AM ACIDIZER HELPER [facility] Blood BLOOD SPECIMEN / Unknown Venipuncture / Unknown 08/20/2020 11:24 PM ACIDIZER HELPER 08/20/2020 6:16 PM ACIDIZER HELPER Dionte Comer MD LAB - CHEMISTRY ASH WEAVER Performing Organization Address [facility] Co de Phone Number [address] [address], [place] [phone] * (ABNORMAL) CBC W/O DIFFERENTIAL (08/20/2020 11:24 PM ACIDIZER HELPER) WBC 12.6(H) 3.5 - 10.5 10? 3 /uL 08/20/2020 11:40 PM [facility] RBC 4.41 3.90 - 5.00 10? 6 /uL 08/20/2020 11:40 PM [facility] Hemoglobin 12.9 12.0 - 15.5 g/dL 08/20/2020 11:40 PM [facility] Hematocrit 40.2 35.0 - 45.0 % 08/20/2020 11:40 PM [facility] MCV 91.2 81.0 - 97.0 fL 08/20/2020 11:40 PM [facility] MCH 29.3 28.0 - 34.0 pg 08/20/2020 11:40 PM [facility] MCHC 32.1 32.0 - 36.0 g/dL 08/20/2020 11:40 PM [facility] Platelet Count 261 150 - 400 10? 3 /uL 08/20/2020 11:40 PM [facility] RDW-SD 43.8 36.0 - 50.0 fL 08/20/2020 11:40 PM [facility] RDW-CV 13.0 11.2 - 14.8 % 08/20/2020 11:40 PM [facility] MPV 9.6 9.3 - 12.8 fL 08/20/2020 11:40 PM [facility] nRBC Absolute 0.00 0 10? 3 /uL 08/20/2020 11:40 PM [facility] nRBC Auto 0.0 0 /100 WBC 08/20/2020 11:40 PM [facility] Blood BLOOD SPECIMEN / Unknown Venipuncture / Unknown 08/20/2020 11:24 PM ACIDIZER HELPER 08/20/2020 6:16 PM ACIDIZER HELPER Dionte Comer MD LAB - HEMATOLOGY ORD ERABLES [facility] [address] [place] [address], [facility] [phone] * (ABNORMAL) BASIC METABOLIC PANEL (CALCIUM TOTAL) (08/20/2020 11:24 PM ACIDIZER HELPER) BUN 7 7 - 26 mg/dL 08/21/2020 12:00 AM [facility] Creatinine 0.7 0.6 - 1.2 mg/dL 08/21/2020 12:00 AM [facility] Sodium 136 136 - 145 mmol/L 08/21/2020 12:00 AM [facility] Potassium 3.7 3.5 - 4.5 mmol/L 08/21/2020 12:00 AM [facility] Chloride 98 98 - 107 mmol/L 08/21/2020 12:00 AM [facility] CO2 30(H) 22 - 29 mmol/L 08/21/2020 12:00 AM [facility] Glucose 133(H) 70 - 115 mg/dL 08/21/2020 12:00 AM [facility] Calcium 8.2(L) 8.4 - 10.2 mg/dL 08/21/2020 12:00 AM [facility] Anion Gap 12 8 - 18 08/21/2020 12:00 AM [facility] BUN/Creatinine Ratio 10 7 - 23 08/21/2020 12:00 AM [facility] Osmolality Calculated 282 270 - 300 mOsm/kg 08/21/2020 12:00 AM [facility] eGFR >60 >60 mL/min/1.7 3 m2 08/21/2020 12:00 AM [facility] Blood BLOOD SPECIMEN / Unknown Venipuncture / Unknown 08/20/2020 11:24 PM [facility] 08/20/2020 6:16 PM [facility] Dionte Comer MD LAB - CHEMISTRY ASH WEAVER [facility] [address] [place] [address], [facility] [phone] * (ABNORMAL) CALCIUM IONIZED WHOLE BLOOD (08/20/2020 11:04 PM [facility]) Pathologist [facility] Ionized Calcium Whole Blood 1.18 mmol/L 08/20/2020 11:13 PM [facility] Adjusted Ionized Calcium 1.16(L) 1.19 - 1.34 mmol/L 08/20/2020 11:13 PM ACIDIZER HELPER [facility] pH Whole Blood 7.37 7.35 - 7.45 08/20/2020 11:13 PM ACIDIZER HELPER [facility] Blood WHOLE BLOOD SPECIMEN / Unknown Venipuncture / Unknown 08/20/2020 11:04 PM ACIDIZER HELPER 08/20/2020 11:10 PM ACIDIZER HELPER Dionte Comer MD LAB - CHEMISTRY ASH WEAVER [address] [address], [facility] [phone] * (ABNORMAL) CALCIUM IONIZED WHOLE BLOOD (08/20/2020 5:46 PM ACIDIZER HELPER) Ionized Calcium Whole Blood 1.17 mmol/L 08/20/2020 5:55 PM [facility] Adjusted Ionized Calcium 1.16(L) 1.19 - 1.34 mmol/L 08/20/2020 5:55 PM [facility] pH Whole Blood 7.38 7.35 - 7.45 08/20/2020 5:55 PM [facility] Blood WHOLE BLOOD SPECIMEN / Unknown Venipuncture / Unknown 08/20/2020 5:46 PM ACIDIZER HELPER 08/20/2020 5:53 PM ACIDIZER HELPER Dionte Comer MD LAB - CHEMISTRY ASH WEAVER [address] [address], [facility] [phone] * (ABNORMAL) CALCIUM IONIZED WHOLE BLOOD (08/20/2020 11:41 AM ACIDIZER HELPER) Ionized Calcium Whole Blood 1.13 mmol/L 08/20/2020 11:48 AM ACIDIZER HELPER [facility] Adjusted Ionized Calcium 1.08(L) 1.19 - 1.34 mmol/L 08/20/2020 11:48 AM [facility] pH Whole Blood 7.31(L) 7.35 - 7.45 08/20/2020 11:48 AM [facility] Blood WHOLE BLOOD SPECIMEN / Unknown Venipuncture / Unknown 08/20/2020 11:41 AM ACIDIZER HELPER 08/20/2020 11:46 AM ACIDIZER HELPER Dionte Comer MD LAB - CHEMISTRY ASH WEAVER [facility] [address] [place] [address], [place] [phone] * (ABNORMAL) CALCIUM IONIZED WHOLE BLOOD (08/20/2020 5:08 AM ACIDIZER HELPER) Ionized Calcium Whole Blood 1.01 mmol/L 08/20/2020 5:14 AM ACIDIZER HELPER [facility] Adjusted Ionized Calcium 0.98(L) 1.19 - 1.34 mmol/L 08/20/2020 5:14 AM [facility] pH Whole Blood 7.35 7.35 - 7.45 08/20/2020 5:14 AM ACIDIZER HELPER [facility] Blood WHOLE BLOOD SPECIMEN / Unknown Venipuncture / Unknown 08/20/2020 5:08 AM ACIDIZER HELPER 08/20/2020 5:12 AM ACIDIZER HELPER Dionte Comer MD LAB - CHEMISTRY ASH WEAVER Performing Organization Address City/[facility]/ZIP Co de Phone Number [address] [address], [place] [phone] * (ABNORMAL) PTH INTACT W/O CALCIUM (08/20/2020 5:08 AM ACIDIZER HELPER) PTH Intact <4.0(L) 8.0 - 77.0 pg/mL 08/20/2020 5:43 AM ACIDIZER HELPER [facility] Blood BLOOD SPECIMEN / Unknown Venipuncture / Unknown 08/20/2020 5:08 AM ACIDIZER HELPER 08/20/2020 5:12 AM ACIDIZER HELPER Dionte Comer MD LAB - CHEMISTRY ASH WEAVER [address] [address], [place] [phone] * (ABNORMAL) PHOSPHORUS BLOOD (08/19/2020 11:48 PM ACIDIZER HELPER) Phosphorus 6.5(H) 2.3 - 4.7 mg/dL 08/20/2020 12:30 AM [facility] Blood BLOOD SPECIMEN / Unknown Venipuncture / Unknown 08/19/2020 11:48 PM ACIDIZER HELPER 08/19/2020 6:16 PM ACIDIZER HELPER Dionte Comer MD LAB - CHEMISTRY ASH WEAVER [facility] [address] [place] [address], [facility] [phone] * MAGNESIUM BLOOD (08/19/2020 11:48 PM ACIDIZER HELPER) Pathologist [facility] Magnesium 1.6 1.6 - 2.6 mg/dL 08/20/2020 12:30 AM [facility] Blood BLOOD SPECIMEN / Unknown Venipuncture / Unknown 08/19/2020 11:48 PM ACIDIZER HELPER 08/19/2020 6:16 PM ACIDIZER HELPER Dionte Comer MD LAB - CHEMISTRY ASH WEAVER [address] [address], [facility] [phone] * (ABNORMAL) CBC W/O DIFFERENTIAL (08/19/2020 11:48 PM ACIDIZER HELPER) Pathologist [facility] WBC 15.3(H) 3.5 - 10.5 10? 3 /uL 08/20/2020 12:05 AM [facility] RBC 4.82 3.90 - 5.00 10? 6 /uL 08/20/2020 12:05 AM [facility] Hemoglobin 14.3 12.0 - 15.5 g/dL 08/20/2020 12:05 AM [facility] Hematocrit 43.7 35.0 - 45.0 % 08/20/2020 12:05 AM [facility] MCV 90.7 81.0 - 97.0 fL 08/20/2020 12:05 AM [facility] MCH 29.7 28.0 - 34.0 pg 08/20/2020 12:05 AM [facility] MCHC 32.7 32.0 - 36.0 g/dL 08/20/2020 12:05 AM [facility] Platelet Count 280 150 - 400 10? 3 /uL 08/20/2020 12:05 AM [facility] RDW-SD 43.7 36.0 - 50.0 fL 08/20/2020 12:05 AM [facility] RDW-CV 13.1 11.2 - 14.8 % 08/20/2020 12:05 AM [facility] MPV 9.4 9.3 - 12.8 fL 08/20/2020 12:05 AM [facility] nRBC Absolute 0.00 0 10? 3 /uL 08/20/2020 12:05 AM [facility] nRBC Auto 0.0 0 /100 WBC 08/20/2020 12:05 AM [facility] Blood BLOOD SPECIMEN / Unknown Venipuncture / Unknown 08/19/2020 11:48 PM ACIDIZER HELPER 08/19/2020 6:16 PM ACIDIZER HELPER Dionte Comer MD LAB - HEMATOLOGY ORD ERABLES Performing Organization Address City/State/[facility] Co de Phone Number [address] [address], [facility] [phone] * (ABNORMAL) BASIC METABOLIC PANEL (CALCIUM TOTAL) (08/19/2020 11:48 PM ACIDIZER HELPER) BUN 10 7 - 26 mg/dL 08/20/2020 12:30 AM [facility] Creatinine 0.7 0.6 - 1.2 mg/dL 08/20/2020 12:30 AM [facility] Sodium 137 136 - 145 mmol/L 08/20/2020 12:30 AM [facility] Potassium 4.5 3.5 - 4.5 mmol/L 08/20/2020 12:30 AM [facility] Chloride 103 98 - 107 mmol/L 08/20/2020 12:30 AM [facility] CO2 24 22 - 29 mmol/L 08/20/2020 12:30 AM [facility] Glucose 204(H) 70 - 115 mg/dL 08/20/2020 12:30 AM [facility] Calcium 7.7(L) 8.4 - 10.2 mg/dL 08/20/2020 12:30 AM [facility] Anion Gap 15 8 - 18 08/20/2020 12:30 AM [facility] BUN/Creatinine Ratio 14 7 - 23 08/20/2020 12:30 AM [facility] Osmolality Calculated 289 270 - 300 mOsm/kg 08/20/2020 12:30 AM [facility] eGFR >60 >60 mL/min/1.7 3 m2 08/20/2020 12:30 AM [facility] Blood BLOOD SPECIMEN / Unknown Venipuncture / Unknown 08/19/2020 11:48 PM ACIDIZER HELPER 08/19/2020 6:16 PM ACIDIZER HELPER Dionte Comer MD LAB - CHEMISTRY ASH WEAVER [address] [address], [place] [phone] * (ABNORMAL) CALCIUM IONIZED WHOLE BLOOD (08/19/2020 11:48 PM ACIDIZER HELPER) Ionized Calcium Whole Blood 1.10 mmol/L 08/20/2020 12:02 AM [facility] Adjusted Ionized Calcium 1.05(L) 1.19 - 1.34 mmol/L 08/20/2020 12:02 AM [facility] pH Whole Blood 7.30(L) 7.35 - 7.45 08/20/2020 12:02 AM [facility] Blood WHOLE BLOOD SPECIMEN / Unknown Venipuncture / Unknown 08/19/2020 11:48 PM ACIDIZER HELPER 08/19/2020 11:55 PM ACIDIZER HELPER Dionte Comer MD LAB - CHEMISTRY ASH WEAVER [address] [address], [place] [phone] * (ABNORMAL) CALCIUM IONIZED WHOLE BLOOD (08/19/2020 6:16 PM ACIDIZER HELPER) Ionized Calcium Whole Blood 1.09 mmol/L 08/19/2020 6:30 PM ACIDIZER HELPER [facility] Adjusted Ionized Calcium 0.96(L) 1.19 - 1.34 mmol/L 08/19/2020 6:30 PM ACIDIZER HELPER [facility] pH Whole Blood 7.16(L) 7.35 - 7.45 08/19/2020 6:30 PM ACIDIZER HELPER [facility] Blood WHOLE BLOOD SPECIMEN / Unknown Venipuncture / Unknown 08/19/2020 6:16 PM ACIDIZER HELPER 08/19/2020 6:25 PM ACIDIZER HELPER Dionte Comer MD LAB - CHEMISTRY ASH WEAVER [facility] [address] [place] [address], [facility] [phone] * XR ABDOMEN KUB PORTABLE (08/19/2020 4:52 PM ACIDIZER HELPER) Anatomical Region Laterality Modality Abdomen Radiographic Antonieta ging 08/20/2020 7:32 AM ACIDIZER HELPER Impressions 08/20/2020 9:00 AM ACIDIZER HELPER Findings/impression: 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 Dictated by Kendall Quiroz MD (limited radiology technician). I, Dr. ROGER HOUSE have personally reviewed and interpreted this examination/study. This report was electronically signed by ROGER HOUSE ??on 08/20/2020 9:00 AM . Narrative 08/20/2020 9:00 AM ACIDIZER HELPER EXAMINATION: XR ABDOMEN KUB PORTABLE HISTORY: J39.8: [...] the stomach. Dictated by Kendall Quiroz MD (limited radiology technician). I, Dr. ROGER HOUSE have personally reviewed and interpreted this examination/study. This report was electronically signed by ROGER HOUSE on 08/20/2020 9:00 AM . Dionte Comer MD DIAGNOSTIC IMAGING O RDERABLES * PATHOLOGY TISSUE (08/19/2020 9:43 AM ACIDIZER HELPER) Case Report Surgical Pathology Report ? Case: [id number] ? Authorizing Provider: ??Dionte Comer MD ?Collected: [...] ink true margin ? 1 7:23 AM [facility] Final Diagnosis Lymph nodes, left [...] Submucosal tissue involved by tumor 7:23 AM [facility] Microscopic Description and [...] see synoptic for further details. 7:23 AM [facility] Clinical History The patient is a 60 year old woman with thyroid mass and involvement with trachea, suspicious for follicular neoplasm. 7:23 AM [facility] Intraoperative Consultation Brought [...] Michelle Anthony M.D., Ph.D. 1 7:23 AM [facility] Gross Description The [...] bisected lymph node A2-A3 whole lymph nodes, Z0-J5-zfrbdbiug adipose tissue. Received in formalin, specimen B is a 5 x 4.5 x 0.7 cm aggregate of pink to yellow-tovar fibroadipose tissue. Multiple lymph nodes are identified, 0.3-1.3 cm in greatest dimension. Entirely submitted as follows: B1-2 bisected lymph nodes, 1 differentially inked green, B2-whole lymph nodes, E5-U5-shnqdqzug adipose tissue Received in formalin, specimen C is a 5 x 3 x 1.4 cm aggregate of fibroadipose tissue. Multiple lymph nodes are identified, 0.3-2.4 cm in greatest dimension. The largest lymph node is grossly positive. Entirely submitted as follows: C1-C2-1 multiply sectioned lymph node, C3-C4-whole lymph nodes and adipose tissue, B2-R8-mjofsmzzk adipose tissue with possible nodes. Received in [...] are identified, 0.4-1.5 cm in greatest dimension. [employer] sections are submitted to include all identifiable [...] with brown-tovar, mildly firm, unremarkable cut surfaces. [employer] sections submitted as follows (to include every [...] and inferior tracheal margins, frozen section control, L1-B1-lghzqypfz cross sections. Received in formalin after frozen section, originally labeled P and relabeled as specimen O are fragments as described in the intraoperative consultation. The frozen section is entirely submitted in cassette O1. LJ 7:23 AM [facility] Addendum 1 A [place]-8 immunostain performed on specimen G, the frozen remnant of the right recurrent laryngeal nerve, highlights the tumor cells with weak nuclear reactivity. 7:23 AM [facility] Addendum electronically signed by Michelle Anthony MD on 09/03/2020 at 7:23 AM Disclaimer The performance characteristics of all immunohistochemical and indirect immunofluorescence stains (if any) cited in this report were determined by the Histopathology Laboratory of [facility]. Some of these tests were [...] and interpreted by the attending (teaching) pathologist. 1 7:23 AM [facility] Synoptic Report THYROID [...] Lymph Nodes (pN): ?pN1b 1 7:23 AM [facility] Embedded Images 7:23 AM [facility] Biopsy, Excision (Lymph Node, Regional Resection) 08/19/2020 9:43 AM ACIDIZER HELPER 08/20/2020 6:05 AM ACIDIZER HELPER Comment:Pre-op diagnosis: TRACHEAL MASS, HOARSENESS, RIGHT VOCAL CORD PARALYSIS, LYMPHADENECTOMY HEAD AND NECK Biopsy, Excision (Lymph Node, Regional Resection) 08/19/2020 9:43 AM ACIDIZER HELPER 08/20/2020 6:05 AM ACIDIZER HELPER Comment:Pre-op diagnosis: TRACHEAL MASS, HOARSENESS, RIGHT VOCAL CORD PARALYSIS, LYMPHADENECTOMY HEAD AND NECK Biopsy, Excision (Lymph Node, Regional Resection) 08/19/2020 9:43 AM ACIDIZER HELPER 08/20/2020 6:05 AM ACIDIZER HELPER Comment:Pre-op diagnosis: TRACHEAL MASS, HOARSENESS, RIGHT VOCAL CORD PARALYSIS, LYMPHADENECTOMY HEAD AND NECK Lymph Node Dissection (Lymph Node, Regional Resection) 08/19/2020 10:07 AM ACIDIZER HELPER 08/20/2020 6:05 AM ACIDIZER HELPER Comment:Pre-op diagnosis: TRACHEAL MASS, HOARSENESS, RIGHT VOCAL CORD PARALYSIS, LYMPHADENECTOMY HEAD AND NECK Lymph Node Dissection (Lymph Node, Regional Resection) 08/19/2020 10:27 AM ACIDIZER HELPER 08/20/2020 6:05 AM ACIDIZER HELPER Comment:Pre-op diagnosis: TRACHEAL MASS, HOARSENESS, RIGHT VOCAL CORD PARALYSIS, LYMPHADENECTOMY HEAD AND NECK Lymph Node Dissection (Lymph Node, Regional Resection) 08/19/2020 10:28 AM ACIDIZER HELPER 08/20/2020 6:05 AM ACIDIZER HELPER Comment:Pre-op diagnosis: TRACHEAL MASS, HOARSENESS, RIGHT VOCAL CORD PARALYSIS, LYMPHADENECTOMY HEAD AND NECK Biopsy, Excision (Soft Tissue, Other) 08/19/2020 11:45 AM ACIDIZER HELPER 08/20/2020 6:05 AM ACIDIZER HELPER Comment:Pre-op diagnosis: TRACHEAL MASS, HOARSENESS, RIGHT VOCAL CORD PARALYSIS, LYMPHADENECTOMY HEAD AND NECK Biopsy, Excision ENTIRE LOBE OF THYROID GLAND / Unknown 08/19/2020 11:55 AM ACIDIZER HELPER 08/20/2020 6:05 AM ACIDIZER HELPER Comment:Pre-op diagnosis: TRACHEAL MASS, HOARSENESS, RIGHT VOCAL CORD PARALYSIS, LYMPHADENECTOMY HEAD AND NECK Biopsy, Excision (Soft Tissue, Other) 08/19/2020 12:06 PM ACIDIZER HELPER 08/20/2020 6:05 AM ACIDIZER HELPER Comment:Pre-op diagnosis: TRACHEAL MASS, HOARSENESS, RIGHT VOCAL CORD PARALYSIS, LYMPHADENECTOMY HEAD AND NECK Biopsy, Excision (Soft Tissue, Other) 08/19/2020 12:09 PM ACIDIZER HELPER 08/20/2020 6:05 AM ACIDIZER HELPER Comment:Pre-op diagnosis: TRACHEAL MASS, HOARSENESS, RIGHT VOCAL CORD PARALYSIS, LYMPHADENECTOMY HEAD AND NECK Biopsy, Excision SOFT TISSUE MASS / Unknown 08/19/2020 12:16 PM ACIDIZER HELPER 08/20/2020 6:05 AM ACIDIZER HELPER Comment:Pre-op diagnosis: TRACHEAL MASS, HOARSENESS, RIGHT VOCAL CORD PARALYSIS, LYMPHADENECTOMY HEAD AND NECK Biopsy, Excision (Parathyroid) 08/19/2020 12:19 PM ACIDIZER HELPER 08/20/2020 6:05 AM ACIDIZER HELPER Comment:Pre-op diagnosis: TRACHEAL MASS, HOARSENESS, RIGHT VOCAL CORD PARALYSIS, LYMPHADENECTOMY HEAD AND NECK Resection with Tumor ENTIRE LOBE OF THYROID GLAND / Unknown 08/19/2020 1:15 PM ACIDIZER HELPER 08/20/2020 6:05 AM ACIDIZER HELPER Comment:Pre-op diagnosis: TRACHEAL MASS, HOARSENESS, RIGHT VOCAL CORD PARALYSIS, LYMPHADENECTOMY HEAD AND NECK Biopsy, Excision ENTIRE TRACHEA / Unknown 08/19/2020 1:24 PM ACIDIZER HELPER 08/20/2020 6:05 AM ACIDIZER HELPER Comment:Pre-op diagnosis: TRACHEAL MASS, HOARSENESS, RIGHT VOCAL CORD PARALYSIS, LYMPHADENECTOMY HEAD AND NECK Biopsy, Excision ENTIRE TRACHEA / Unknown 08/19/2020 1:25 PM ACIDIZER HELPER 08/20/2020 6:05 AM ACIDIZER HELPER Comment:Pre-op diagnosis: TRACHEAL MASS, HOARSENESS, RIGHT VOCAL CORD PARALYSIS, LYMPHADENECTOMY HEAD AND NECK Dionte Comer MD LAB - PATHOLOGY/CYTO LOGY ORDERABLES Performing Organization Address [facility]/ZIP Co de Phone Number [facility] [address] [place] [address], [facility] [phone] * TYPE + SCREEN PANEL (08/19/2020 6:18 AM ACIDIZER HELPER) Antibody Screen NEG 7:03 AM ACIDIZER HELPER [facility] ABO Rh B POS 08/19/2020 7:03 AM ACIDIZER HELPER [facility] Blood Bank BLOOD SPECIMEN / Unknown Venipuncture / Unknown 08/19/2020 6:18 AM ACIDIZER HELPER 08/19/2020 6:25 AM ACIDIZER HELPER Dionte Comer MD LAB - BLOOD BANK ORD ERABLES Performing Organization Address [facility]/ZIP Co de Phone Number [facility] [address] [phone], [facility] [phone] documented in this encounter Visit Diagnoses Diagnosis [...] PRN, Other, peripheral line flush, Starting on [place] 08/18/20 at 1512, Until Josi 08/29/20 at [...] 8 hours. $ Given 08/29/2020 5:30 AM ACIDIZER HELPER 3 mL $ Given 08/28/2020 8:15 PM ACIDIZER HELPER 3 mL $ Given 08/28/2020 1:21 PM ACIDIZER HELPER 3 mL acetaminophen (TYLENOL) tablet 500 mg 500 mg, Oral, EVERY 6 HOURS, First dose (after last modification) on 08/24/20 at 1800, Until Discontinued $ Given 08/29/2020 5:29 AM ACIDIZER HELPER 500 mg $ Given 08/28/2020 11:31 PM ACIDIZER HELPER 500 mg $ Given 08/28/2020 5:21 PM ACIDIZER HELPER 500 mg albuterol-ipratropium (DUO-NEB) nebulizer solution 3 mL 3 mL, Inhalation, EVERY 4 HOURS PRN, Shortness of Breath, Wheezing, Starting on 08/26/20 at 1138, Until Josi 08/29/20 at 1230 atorvastatin (LIPITOR) tablet 40 mg 40 mg, Oral, AT BEDTIME, First dose (after last modification) on 08/24/20 at 2100, Until Discontinued $ Given 08/28/2020 8:15 PM ACIDIZER HELPER 40 mg $ Given 08/27/2020 8:53 PM ACIDIZER HELPER 40 mg $ Given 08/26/2020 8:03 PM ACIDIZER HELPER 40 mg bacitracin topical ointment PRN, Starting on Wed08/19/20 at 1524, Until Wed08/19/20 at 1553, Intra-op $ Given 08/19/2020 3:24 PM ACIDIZER HELPER 1 packet Ope rative Site calcitriol (ROCALTROL) capsule 0.5 mcg 0.5 mcg, Oral, 2 TIMES DAILY, First dose (after last modification) on Wed08/21/20 at 2100, Until Discontinued, Administer via G-tube if possible $ Given 08/29/2020 9:05 AM ACIDIZER HELPER 0.5 mcg $ Given 08/28/2020 8:19 PM ACIDIZER HELPER 0.5 mcg $ Given 08/28/2020 8:50 AM ACIDIZER HELPER 0.5 mcg calcium-vitamin D (OS-YANNICK 500 + D) 500-200 mg-unit tablet 2 tablet 2 tablet, Oral, 3 TIMES DAILY WITH MEALS, First dose (after last modification) on Wed08/25/20 at 1200, Until Discontinued $ Given 08/29/2020 9:05 AM ACIDIZER HELPER 2 tablets $ Given 08/28/2020 5:21 PM ACIDIZER HELPER 2 tablets $ Given 08/28/2020 12:09 PM ACIDIZER HELPER 2 tablets clonazePAM (KlonoPIN) tablet 0.5 mg 0.5 mg, Oral, 2 TIMES DAILY, First dose (after last modification) on [facility] 08/24/20 at 2100, Until Discontinued $ Given 08/29/2020 9:05 AM ACIDIZER HELPER 0.5 mg $ Given 08/28/2020 8:15 PM ACIDIZER HELPER 0.5 mg $ Given 08/28/2020 8:50 AM ACIDIZER HELPER 0.5 mg heparin injection 5,000 Units 5,000 Units, Subcutaneous, EVERY 8 HOURS, First dose on Wed08/20/20 at 0900, Until Discontinued $ Given 08/29/2020 5:30 AM ACIDIZER HELPER 5,000 Units Right Arm $ Given 08/28/2020 10:30 PM ACIDIZER HELPER 5,000 Units Right Arm $ Given 08/28/2020 1:19 PM ACIDIZER HELPER 5,000 Units L eft Arm ibuprofen (MOTRIN) tablet 400 mg 400 mg, Oral, EVERY 6 HOURS PRN, Mild Pain, Starting on [facility] 08/24/20 at 1312, Until Josi 08/29/20 at 1230, Maximum allowable amount = 3200 mg / 24 hours. $ Given 08/24/2020 5:01 PM ACIDIZER HELPER 400 m g levothyroxine (SYNTHROID) tablet 112 mcg 112 mcg, Oral, DAILY AT 0600, First dose (after last modification) on Wed08/25/20 at 0600, Until Discontinued, Take in the morning on an empty stomach. Do not give within 4 hours of antacids, iron or calcium supplements. $ Given 08/29/2020 5:29 AM ACIDIZER HELPER 112 mcg $ Given 08/28/2020 5:36 AM ACIDIZER HELPER 112 mcg $ Given 08/27/2020 6:30 AM ACIDIZER HELPER 112 mcg lidocaine 1% - EPINEPHrine 1:100,000 injection PRN, Starting on 08/19/20 at 0849, Until Wed08/19/20 at 1514, Intra-op $ Given 08/19/2020 8:49 AM ACIDIZER HELPER 6 mL melatonin tablet 3 mg 3 mg, Oral, EVERY EVENING, First dose (after last modification) on 08/24/20 at 1700, Until Discontinued $ Given 08/27/2020 4:03 PM ACIDIZER HELPER 3 mg $ Given 08/26/2020 5:35 PM ACIDIZER HELPER 3 mg $ Given 08/25/2020 6:17 PM ACIDIZER HELPER 3 mg octreotide (SandoSTATIN) injection 100 mcg 100 mcg, Subcutaneous, 3 TIMES DAILY, First dose on 08/24/20 at 1700, Until Discontinued $ Given 08/29/2020 9:05 AM ACIDIZER HELPER 100 mcg Abd Left Lower Quadrant $ Given 08/28/2020 8:16 PM ACIDIZER HELPER 100 mcg Ri ght Arm $ Given 08/28/2020 1:19 PM ACIDIZER HELPER 100 mcg Le ft Arm ondansetron (ZOFRAN) injection 4 mg 4 mg, Intravenous, EVERY 6 HOURS PRN, Nausea/Vomiting, Starting on 08/19/20 at 1654, Until Josi 08/29/20 at 1230, Administer over 2 to 5 minutes. $ Given 08/21/2020 5:36 PM ACIDIZER HELPER 4 mg oxyCODONE (ROXICODONE) oral solution 5 mg 5 mg, Oral, EVERY 4 HOURS PRN, Severe Pain, Starting on 08/24/20 at 1312, Until Josi 08/29/20 at 1230 $ Given 08/29/2020 3:59 AM ACIDIZER HELPER 5 mg $ Given 08/28/2020 4:15 PM ACIDIZER HELPER 5 mg $ Given 08/28/2020 10:36 AM ACIDIZER HELPER 5 mg pantoprazole EC (PROTONIX) tablet 40 mg 40 mg, Oral, DAILY, First dose on Josi 08/29/20 at 0900, Until Discontinued, Do not crush, chew, or cut in half. $ Given 08/29/2020 9:05 AM ACIDIZER HELPER 40 mg PARoxetine (PAXIL) tablet 40 mg 40 mg, Oral, DAILY, First dose (after last modification) on 08/25/20 at 0900, Until Discontinued $ Given 08/29/2020 9:05 AM ACIDIZER HELPER 40 mg $ Given 08/28/2020 8:50 AM ACIDIZER HELPER 40 mg $ Given 08/27/2020 8:49 AM ACIDIZER HELPER 40 mg polyethylene glycol 3350 (MIRALAX) packet 17 g 17 g, Oral, DAILY, First dose on 08/25/20 at 0900, Until Discontinued, Mix in 8 ounces of water, juice, soda, coffee or tea prior to administration HOLD FOR BM IN LAST 48 HRS $ Given 08/29/2020 9:05 AM ACIDIZER HELPER 17 g $ Given 08/27/2020 8:49 AM ACIDIZER HELPER 17 g $ Given 08/26/2020 8:56 AM ACIDIZER HELPER 17 g senna (SENOKOT) tablet 8.6 mg 8.6 mg, Oral, DAILY, First dose (after last modification) on 08/25/20 at 0900, Until Discontinued $ Given 08/29/2020 9:05 AM ACIDIZER HELPER 8.6 mg $ Given 08/27/2020 8:49 AM ACIDIZER HELPER 8.6 mg $ Given 08/26/2020 8:56 AM ACIDIZER HELPER 8.6 mg traZODone (DESYREL) tablet 50 mg 50 mg, Oral, AT BEDTIME, First dose (after last modification) on 08/24/20 at 2100, Until Discontinued $ Given 08/28/2020 8:15 PM ACIDIZER HELPER 50 mg $ Given 08/27/2020 8:53 PM ACIDIZER HELPER 50 mg $ Given 08/26/2020 8:03 PM ACIDIZER HELPER 50 mg documented in this encounter Active and Recently Administered Medications Times are shown in ACIDIZER HELPER. Scheduled Medication Order 08/27/2020 08/28/2020 08/29/2020 0.9% [...] Bates RN)1321 ($ Given - Provider: Vincent Bird RN)2014 ($ Given - Provider: Daiana Garcia RN) 0530 ($ Given - Provider: Daiana Garcia RN) acetaminophen (TYLENOL) tablet 500 mg 500 mg, Oral, EVERY 6 HOURS, First dose (after last modification) on 08/24/20 at 1800, Until Discontinued 0044 (Not Administered [...] JOSY)1721 ($ Given - Provider: Vincent Bird, JOSY)2331 ($ Given - Provider: Daiana Garcia RN) [...] 0850 ($ Given - Provider: Vincent Bird, JOSY)2018 ($ Given - Provider: Daiana Garcia RN) 0905 ($ Given - Provider: Nader Ross RN) calcium-vitamin D (OS-YANNICK 500 + D) 500-200 mg-unit tablet 2 tablet 2 tablet, Oral, 3 TIMES DAILY WITH MEALS, First dose (after last modification) on Wed08/25/20 at 1200, Until Discontinued 0849 ($ Given - Provider: Christa Crawford RN)1158 ($ Given - Provider: Christa Crawford RN)1752 ($ Given - Provider: Christa rCawford RN) 0850 ($ Given - Provider: Vincent Bird, JOSY)1209 ($ Given - Provider: Vincent Bird, JOSY)1721 ($ Given - Provider: Vincent Bird, JOSY) [...] ($ Given - Provider: Daiana Garcia RN) 09 ($ Given - Provider: Nader Ross, JOSY) heparin injection 5,000 Units 5,000 Units, Subcutaneous, EVERY 8 HOURS, First dose on Wed08/20/20 at 0900, Until Discontinued 0630 ($ Given - Provider: Daiana Garcia RN)1401 ($ Given - Provider: Christa Crawford RN)2052 [...] RN) 1724 (Not Administered - Provider: Vincent Bidr, JOSY - Reason: Refused-Patient) octreotide (SandoSTATIN) injection 100 mcg 100 mcg, Subcutaneous, 3 TIMES DAILY, First dose on Wed08/24/20 at 1700, Until Discontinued 0849 ($ Given - Provider: Christa Crawford RN)1401 ($ Given - Provider: Christa Crawford RN)2052 ($ Given - Provider: Kathleen Bates RN) 0850 ($ Given - Provider: Vincent Bird, RN)131 ($ Given - Provider: Vincent Bird, RN)2015 ($ Given - Provider: Daiana Garcia, JOSY) [...] 17 g, Oral, DAILY, First dose on Wed08/25/20 at 0900, Until Discontinued, Mix in 8 ounces of water, juice, soda, coffee or tea prior to administration HOLD FOR BM IN LAST 48 HRS 0849 ($ Given - Provider: Christa Crawford RN) 0850 (Not Administered - Provider: Vincent Bird, JOSY - Reason: Refused-Patient) 0905 ($ Given - Provider: Nader Ross, JOSY) senna (SENOKOT) tablet 8.6 mg 8.6 mg, Oral, DAILY, First dose (after last modification) on 08/25/20 at 0900, Until Discontinued 0849 ($ Given - Provider: Christa Crawford RN) 0850 (Not Administered - Provider: Vincent Bird RN - Reason: Refused-Patient) 904 ($ Given - Provider: Nader Ross RN) traZODone (DESYREL) tablet 50 mg 50 mg, Oral, AT BEDTIME, First dose (after last modification) on 08/24/20 at 2100, Until Discontinued 2052 ($ Given - Provider: Kathleen Bates, JOSY) 2014 ($ Given - Provider: Daiana Garcia [...] RN)1603 ($ Given - Provider: Christa Crawford, RN)2245 ($ Given - Provider: Kathleen Bates, RN) 1036 ($ Given - Provider: Vincent Bird, RN)1615 ($ Given - Provider: Vincent Bird, RN) 0359 ($ Given - Provider: Daiana Garcia, [...] patency. documented in this encounter Care Teams Caster Helper Relationship Specialty Start Date End Date Taniya Grimes MD [address] DIV OF [facility] [place] [address] PCP - General 07/01/20 05/10/22 Marylu Marie DO [address] [facility] OF [facility] [place] [address] Resident - PCP Student Resident 06/26/20 01/11/22 documented as of this encounter
--- OUTSIDE RECORDS SUMMARY | 2024-07-26 08:43 | XMS_ITS | Encounter Summary ---
Author Organization [facility] Health Address [address] [place] [address] Care Team Providers Care Etl Analyst Name Role Phone Marylu Marie DO Unavailable Taniya Grimes MD Primary Care Provider Encounter Details Date Type Department Care Team (Latest Contact Info) Description 08/15/2020 9:50 AM GRAPHICS MANAGER - 08/15/2020 11:59 PM [facility] Hospital Encounter [facility] [address] [place] [address] Dionte Comer MD [address] [place] [address] Discharge Disposition: Home or Self Care Social [...] COVID-19? No / Unsure 08/15/2020 10:13 AM GRAPHICS MANAGER documented as of this encounter Functional [...] by mouth as needed 01/13/2021 albuterol HFA (PROVENTIL;VENTOLIN;HI OAIR) 108 (90 Base) MCG/ACT inhaler Inhale [...] times daily 30 capsule 1 08/29/2020 10/03/2020 [id number]-[id number] 333-133-5 MG tablet Take 1 tablet by [...] fluticasone propionate (FLONASE) 50 MCG/ACT nasal spray [place] 2 sprays into each nostril 16 g 09/06/2019 04/11/2021 gabapentin (NEURONTIN) 300 MG capsuleIndications:Nicole favio osteoarthritis of left hip TAKE 1 CAPSULE BY MOUTH THREE TIMES A DAY 90 capsule 5 03/08/2020 09/06/2020 [id number] -HYAL PO Take 1 tablet by mouth 3 times daily 06/13/2023 levothyroxine (SYNTHROID) 112 MCG tablet Take 1 (one) tablet by mouth once daily 30 tablet 1 08/30/2020 10/14/2020 meloxicam (MOBIC) 7.5 MG tablet TAKE 1 TABLET BY MOUTH EVERY DAY 60 tablet 2 07/16/2020 01/13/2021 [place]-3 Fatty Acids (FISH OIL) 1000 MG capsule [...] Contact Info) Description 08/02/2024 2:20 PM GRAPHICS MANAGER Appointment [facility] [address] [place] [address] 08/02/2024 3:00 PM GRAPHICS MANAGER [facility]On[facility] [address] [place] [phone] Remi Beckett MD [address] [place] [phone] 08/18/2024 1:45 PM GRAPHICS MANAGER Office Visit [facility] - ENT [address] [place] [phone] Neri Delgado MD [address] [place] [address] 08/30/2024 2:20 PM GRAPHICS MANAGER Appointment [facility] [address] [place] [address] documented as of this encounter Procedures Procedure Name Priority Date/Time Associated Diagnosis Comments SARS-COV-2 (COVID-19) IN HOUSE Routine 08/15/2020 11:01 AM GRAPHICS MANAGER Hoarseness 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 MICROBIOLOGY Microbiology SPECIMEN FROM NASOPHARYNGEAL STRUCTURE / Unknown Collection / Unknown 08/15/2020 11:01 AM GRAPHICS MANAGER 08/15/2020 11:01 AM GRAPHICS MANAGER Narrative [facility] MICROBIOLOGY - 08/15/2020 4:50 PM GRAPHICS MANAGER This nucleic acid amplification assay performance was validated by [facility] Microbiology Laboratory. This test has been [...] Comer MD LAB - MICROBIOLOGY O RDERABLES [facility] MICROBIOLOGY [address] [phone] documented in this encounter Visit Diagnoses Diagnosis Hoarseness Dysphonia Tracheal mass Swelling, mass, 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 Complete paralysis of right vocal cord Lymphadenopathy of head and neck region documented in this encounter Care Teams Etl Analyst Relationship Specialty Start Date End Date Taniya Grimes MD [address] DIV OF [facility] [place] [address] PCP - General 07/01/20 05/10/22 Marylu Marie DO [address] [facility] OF [facility] [place] [address] Resident - PCP Student Resident 06/26/20 01/11/22 documented as of this encounter
--- OUTSIDE RECORDS SUMMARY | 2024-07-26 08:43 | XMS_ITS | Encounter Summary ---
Author Organization [facility] Health Address [address] [facility] [place] [address] Care Team Providers Care Sales Representative Adding Machines Name Role Phone Marylu Marie DO Unavailable [phone] Taniya Grimes MD Primary Care Provider Reason for Visit * Auth/Cert Specialty Diagnoses / Procedures Referred By Contricardo t Referred To Contact Diagnoses Thyroid nodule Procedures US THYROID FNA Referral ID Status Reason Start Date Expiration Date Visits Re quested Visits Authorized [id number] 1 1 Encounter Details Date Type Department Care Team (Latest Contact Info) Description 08/01/2020 4:15 PM PURLER - 08/01/2020 11:59 PM [facility] Hospital Encounter [facility] [address] [place] [phone] Dionte Comer MD [address] DE[place] [address] Marcela Goodrich MD [address] [phone] Discharge Disposition: Home or Self [...] COVID-19? No / Unsure 07/26/2020 11:45 AM PURLER documented as of this encounter Functional Status [...] by mouth as needed 01/13/2021 albuterol HFA (PROVENTIL;VENTOLIN;ND OAIR) 108 (90 Base) MCG/ACT inhaler Inhale [...] times daily 30 capsule 1 08/29/2020 10/03/2020 [id number] 333-133-5 MG tablet Take 1 tablet by [...] fluticasone propionate (FLONASE) 50 MCG/ACT nasal spray [place] 2 sprays into each nostril 16 g 09/06/2019 04/11/2021 gabapentin (NEURONTIN) 300 MG capsuleIndications:Nicole favio osteoarthritis of left hip TAKE 1 CAPSULE BY MOUTH THREE TIMES A DAY 90 capsule 5 03/08/2020 09/06/2020 [id number] -HYAL PO Take 1 tablet by mouth 3 times daily 06/13/2023 levothyroxine (SYNTHROID) 112 MCG tablet Take 1 (one) tablet by mouth once daily 30 tablet 1 08/30/2020 10/14/2020 meloxicam (MOBIC) 7.5 MG tablet TAKE 1 TABLET BY MOUTH EVERY DAY 60 tablet 2 07/16/2020 01/13/2021 [place]-3 Fatty Acids (FISH OIL) 1000 MG capsule [...] st Contact Info) Description 08/02/2024 2:20 PM PURLER Appointment [facility] [address] [place] [address] 08/02/2024 3:00 PM PURLER Office Visit [facility] - Hematology/Oncology [address] [place] [phone] Remi Beckett MD [address] [place] [phone] 08/18/2024 1:45 PM PURLER Office Visit [facility] - ENT [address] [place] [phone] Neri Delgado MD [address] [place] [address] 08/30/2024 2:20 PM PURLER Appointment [facility] [address] [place] [address] documented as of this encounter Procedures Procedure Name Priority Date/Time Associated Diagnosis Comments CBC W/O DIFFERENTIAL Routine 08/01/2020 4:27 PM PURLER Pre-op evaluation BASIC METABOLIC PANEL (CALCIUM TOTAL) Routine 08/01/2020 4:27 PM PURLER Pre-op evaluation documented in this encounter Results * CBC W/O DIFFERENTIAL (08/01/2020 4:27 PM PURLER) WBC 9.0 3.5 - 10.5 10? 3 /uL 08/01/2020 5:07 PM [facility] RBC 4.91 3.90 - 5.00 10? 6 /uL 08/01/2020 5:07 PM [facility] Hemoglobin 14.2 12.0 - 15.5 g/dL 08/01/2020 5:07 PM [facility] Hematocrit 43.5 35.0 - 45.0 % 08/01/2020 5:07 PM [facility] MCV 88.6 81.0 - 97.0 fL 08/01/2020 5:07 PM [facility] MCH 28.9 28.0 - 34.0 pg 08/01/2020 5:07 PM [facility] MCHC 32.6 32.0 - 36.0 g/dL 08/01/2020 5:07 PM [facility] Platelet Count 276 150 - 400 10? 3 /uL 08/01/2020 5:07 PM [facility] RDW-SD 41.0 36.0 - 50.0 fL 08/01/2020 5:07 PM [facility] RDW-CV 12.5 11.2 - 14.8 % 08/01/2020 5:07 PM [facility] MPV 9.5 9.3 - 12.8 fL 08/01/2020 5:07 PM [facility] nRBC Absolute 0.00 0 10? 3 /uL 08/01/2020 5:07 PM [facility] nRBC Auto 0.0 0 /100 WBC 08/01/2020 5:07 PM [facility] Blood BLOOD SPECIMEN / Unknown Lab Venipuncture / Unknown 08/01/2020 4:27 PM PURLER 08/01/2020 5:01 PM [facility] Dionte Comer MD LAB - HEMATOLOGY ORD ERABLES [facility] [address] [place] [address], [facility] [phone] * (ABNORMAL) BASIC METABOLIC PANEL (CALCIUM TOTAL) (08/01/2020 4:27 PM PURLER) BUN 12 7 - 26 mg/dL 08/01/2020 5:26 PM [facility] Creatinine 0.8 0.6 - 1.2 mg/dL 08/01/2020 5:26 PM [facility] Sodium 141 136 - 145 mmol/L 08/01/2020 5:26 PM [facility] Potassium 3.9 3.5 - 4.5 mmol/L 08/01/2020 5:26 PM [facility] Chloride 100 98 - 107 mmol/L 08/01/2020 5:26 PM [facility] CO2 32(H) 22 - 29 mmol/L 08/01/2020 5:26 PM [facility] Glucose 82 70 - 115 mg/dL 08/01/2020 5:26 PM [facility] Calcium 9.4 8.4 - 10.2 mg/dL 08/01/2020 5:26 PM [facility] Anion Gap 13 8 - 18 08/01/2020 5:26 PM [facility] BUN/Creatinine Ratio 15 7 - 23 08/01/2020 5:26 PM [facility] Osmolality Calculated 291 270 - 300 mOsm/kg 08/01/2020 5:26 PM [facility] eGFR >60 >60 mL/min/1.7 3 m2 08/01/2020 5:26 PM [facility] Blood BLOOD SPECIMEN / Unknown Lab Venipuncture / Unknown 08/01/2020 4:27 PM PURLER 08/01/2020 5:01 PM [facility] Dionte Comer MD LAB - CHEMISTRY [facility] Organization Address City/State/ZIP Co de Phone Number [facility] [address] [place] [address] [phone] documented in this encounter Visit Diagnoses Diagnosis Pre-op evaluation- Primary Preoperative examination, unspecified documented in this encounter Care Teams Sales Representative Adding Machines Relationship Specialty [place] [address] [place] [address] [address] DIV OF [facility] [place] [phone] PCP - General 07/01/20 05/10/22 [place] [address] [place] [address] [address] [facility] OF [facility] [place] [address] Resident - PCP Student Resident 06/26/20 01/11/22 documented as of this encounter
--- OUTSIDE RECORDS SUMMARY | 2024-07-26 08:43 | XMS_ITS | Encounter Summary ---
Author Organization [facility] Health Address [address] [place] [address] Care Team Providers Care Geek Squad Manager Name Role Phone Marylu Marie DO Unavailable [phone] Taniya Grimes MD Primary Care Provider Reason for Visit * Reason Comments Ear Pain R ear elevated wound with scab ~5 cm with reddness around area. No obvious drainage. Started 08/05/20. Pt states possible spider bite but did not see spider. A&Ox4. Encounter Details Date Type Department Care Team (Late st Contact Info) Description 08/07/2020 2:50 PM UNDERGROUND DISTRIBUTION ENGINEER - 08/07/2020 6:09 PM UNDERGROUND DISTRIBUTION ENGINEER Emergency [facility] [address] [place] [phone] Encounter for administrative examinations, unspecified Discharge Disposition: [...] COVID-19? No / Unsure 07/26/2020 11:45 AM UNDERGROUND DISTRIBUTION ENGINEER documented as of this encounter Last Filed Vital Signs Vital Sign Reading Time Taken Comments Blood Pressure - - Pulse 66 08/07/2020 2:51 PM UNDERGROUND DISTRIBUTION ENGINEER Temperature 36.5 ??C (97.7 ??F) 08/07/2020 2:51 PM CS T Respiratory Rate 18 08/07/2020 2:51 PM UNDERGROUND DISTRIBUTION ENGINEER Oxygen Saturation 96% 08/07/2020 2:51 PM UNDERGROUND DISTRIBUTION ENGINEER Inhaled Oxygen Concentration - - Weight 68.5 kg (151 lb) 08/07/2020 2:51 PM UNDERGROUND DISTRIBUTION ENGINEER Height 154.9 cm (5' 1) 08/07/2020 2:51 PM UNDERGROUND DISTRIBUTION ENGINEER Body Mass Index 28.53 08/07/2020 2:51 PM UNDERGROUND DISTRIBUTION ENGINEER documented in this encounter Functional Status Functional [...] times daily 30 capsule 1 08/29/2020 10/03/2020 [id number]-[id number] 333-133-5 MG tablet Take 1 tablet by [...] fluticasone propionate (FLONASE) 50 MCG/ACT nasal spray [place] 2 sprays into each nostril 16 g 09/06/2019 04/11/2021 gabapentin (NEURONTIN) 300 MG capsuleIndications:Nicole favio osteoarthritis of left hip TAKE 1 CAPSULE BY MOUTH THREE TIMES A DAY 90 capsule 5 03/08/2020 09/06/2020 [id number]-C -HYAL PO Take 1 tablet by mouth 3 times daily 06/13/2023 levothyroxine (SYNTHROID) 112 MCG tablet Take 1 (one) tablet by mouth once daily 30 tablet 1 08/30/2020 10/14/2020 meloxicam (MOBIC) 7.5 MG tablet TAKE 1 TABLET BY MOUTH EVERY DAY 60 tablet 2 07/16/2020 01/13/2021 [place]-3 Fatty Acids (FISH OIL) 1000 MG capsule [...] tank of oxygen to get home with. RGROUND DISTRIBUTION ENGINEER * Edna Shukla - 08/07/2020 4:07 PM CST Pt ambulated to the bathroom without difficulty; no distress noted at this time. RGROUND DISTRIBUTION ENGINEER * Milly Galindo RN - 08/07/2020 3:18 PM CST Pt states she has thryroid surgery due to ca scheduled for and is requesting to get ear evaluated prior to surgery. RGROUND DISTRIBUTION ENGINEER documented in this encounter Plan of Treatment Upcoming Encounters Date Type Department Care Team (Late st Contact Info) Description 08/02/2024 2:20 PM UNDERGROUND DISTRIBUTION ENGINEER Appointment [facility] [address] [place] [address] 08/02/2024 3:00 PM UNDERGROUND DISTRIBUTION ENGINEER Office Visit [facility] - Hematology/Oncology [address] [place] [phone] Remi Beckett MD [address] [place] [address] 08/18/2024 1:45 PM UNDERGROUND DISTRIBUTION ENGINEER Office Visit [facility] - ENT [address] [place] [address] Neri Delgado MD [address] [place] [address] 08/30/2024 2:20 PM UNDERGROUND DISTRIBUTION ENGINEER Appointment [facility] [address] [place] [address] documented as of this encounter Visit Diagnoses Diagnosis Encounter for administrative examinations, unspecified documented in this encounter Care Teams Geek Squad Manager Relationship Specialty Start Date End Date Taniya Grimes MD [address] [place] [address] [address] DIV OF [facility] [place] [address] PCP - General 07/01/20 05/10/22 Marylu Marie DO [address] [place] [address] [address] [address] Resident - PCP Student Resident 06/26/20 01/11/22 documented as of this encounter
--- OUTSIDE RECORDS SUMMARY | 2024-07-26 08:43 | XMS_ITS | Encounter Summary ---
Author Organization [facility] Address [address] [facility] [place] [address] Care Team Providers Care Instructional Paraprofessional Name Role Phone Marylu Marie DO Unavailable Taniya Grimes MD Primary Care Provider Reason for Referral * Radiology Services (Routine) - Closed Specialty Diagnoses / Procedures Referred By Contac t Referred To Contact MRI Diagnoses Neck mass Procedures MRI BRAIN WO CONTRAST Dionte Comer MD [address] [facility] 2L [place] [address] Referral ID Status Reason Start Date Expiration Date Visits Re quested Visits Authorized [id number] Closed 08/09/2020 02/07/2021 1 1 S ATTENDANT BUILDING MATERIALS * Radiology Services (Routine) - Closed Specialty Diagnoses / Procedures Referred By Contricardo t Referred To Contact MRI Diagnoses Neck mass Procedures MRI NECK SOFT TISSUE WWO CONT Dionte Comer MD [address] 2L [place] [address] Referral ID Status Reason Start Date Expiration Date Visits Re quested Visits Authorized [id number] Closed 08/09/2020 02/07/2021 1 1 S ATTENDANT BUILDING MATERIALS Encounter Details Date Type Department Care Team (Late st Contact Info) Description 08/07/2020 Orders Only [facility] [address] [place] [address] Mariah Nunn, RN Neck mass Social History [...] COVID-19? No / Unsure 07/26/2020 11:45 AM SALES ATTENDANT BUILDING MATERIALS documented as of this encounter Functional Status [...] st Contact Info) Description 08/02/2024 2:20 PM SALES ATTENDANT BUILDING MATERIALS Appointment [facility] [address] [place] [address] 08/02/2024 3:00 PM SALES ATTENDANT BUILDING MATERIALS Office Visit [facility] - Hematology/Oncology [address] [place] [phone] Remi Beckett MD [address] [place] [phone] 08/18/2024 1:45 PM SALES ATTENDANT BUILDING MATERIALS Office Visit [facility] - ENT [address] [place] [phone] Neri Delgado MD [address] [place] [address] 08/30/2024 2:20 PM SALES ATTENDANT BUILDING MATERIALS Appointment [facility] [address] [place] [address] documented as of this encounter Results * MRI BRAIN WO CONTRAST (08/17/2020 1:40 PM SALES ATTENDANT BUILDING MATERIALS) Anatomical Region Laterality Modality Head Magnetic Resonan ce 08/19/2020 7:32 AM SALES ATTENDANT BUILDING MATERIALS Impressions 08/19/2020 11:14 AM SALES ATTENDANT BUILDING MATERIALS IMPRESSION: 1.Corresponding to the abnormality seen on [...] AM . Narrative 08/19/2020 11:14 AM SALES ATTENDANT BUILDING MATERIALS EXAMINATION: MRI of the brain without contrast [...] left level 3/[address] MELA Mckeon have personally reviewed and interpreted this examination/study. This report was electronically signed by MELA SNELL on 08/19/2020 11:14 AM . Dionte Comer MD MR ORDERABLES * MRI NECK SOFT TISSUE WWO CONT (08/17/2020 1:39 PM SALES ATTENDANT BUILDING MATERIALS) Anatomical Region Laterality Modality Head Magnetic Resonan ce 08/19/2020 7:32 AM SALES ATTENDANT BUILDING MATERIALS Impressions 08/19/2020 11:14 AM SALES ATTENDANT BUILDING MATERIALS IMPRESSION: 1.Corresponding to the abnormality seen on [...] left level 3/[address] MELA Mckeon have personally reviewed and interpreted this examination/study. This report was electronically signed by MELA SNELL ??on 08/19/2020 11:14 AM . Narrative 08/19/2020 11:14 AM SALES ATTENDANT BUILDING MATERIALS EXAMINATION: MRI of the brain without contrast [...] neck documented in this encounter Care Teams Instructional Paraprofessional Relationship Specialty Start Date End Date Taniya Grimes MD [address] 2[address] DIV OF [facility] [place] [address] PCP - General 07/01/20 05/10/22 Marylu Marie DO [address] DIV OF [facility] [place] [address] Resident - PCP Student Resident 06/26/20 01/11/22 documented as of this encounter
--- OUTSIDE RECORDS SUMMARY | 2024-07-26 08:43 | XMS_ITS | Encounter Summary ---
Author Organization [facility] Address [address] [facility] [place] [address] Care Team Providers Care Cuffing Machine Operator Name Role Phone Marylu Marie DO Unavailable [phone] Taniya Grimes MD Primary Care Provider Encounter [...] COVID-19? No / Unsure 08/17/2020 11:32 AM RECREATION PROGRAM COORDINATOR documented as of this encounter Functional Status [...] st Contact Info) Description 08/02/2024 2:20 PM RECREATION PROGRAM COORDINATOR Appointment [facility] [place] [address] 08/02/2024 3:00 PM RECREATION PROGRAM COORDINATOR Office Visit [facility] - Hematology/Oncology [address] [place] [phone] Remi Beckett MD [address] [place] [phone] 08/18/2024 1:45 PM RECREATION PROGRAM COORDINATOR Office Visit [facility] - ENT [address] [place] [phone] Neri Delgado MD [address] [place] [address] 08/30/2024 2:20 PM RECREATION PROGRAM COORDINATOR Appointment [facility] [address] [place] [address] documented as of this encounter Visit Diagnoses Not on filedocumented in this encounter Care Teams Cuffing Machine Operator Relationship Specialty Start Date End Date Taniya Grimes MD [address] [place] [address] [address] [place] [address] PCP - General 07/01/20 05/10/22 Marylu Marie DO [address] [place] [address] [address] [address] Resident - PCP Student Resident 06/26/20 01/11/22 documented as of this encounter
--- OUTSIDE RECORDS SUMMARY | 2024-07-26 08:43 | XMS_ITS | Encounter Summary ---
Author Organization [facility] Address [address] [facility] [place] [address] Care Team Providers Care Sheriff'S Sergeant Name Role Phone Marylu Marie DO Unavailable Taniya Grimes MD Primary Care Provider Reason for Visit * Reason Comments Insect bite Encounter Details Date Type Department Care Team (Late st Contact Info) Description 08/08/2020 11:10 AM PLANETARIUM TECHNICIAN Office Visit [facility] General Internal Medicine [address] [place] [address] Cellulitis of other specified site (Primary Dx) [...] COVID-19? No / Unsure 07/26/2020 11:45 AM PLANETARIUM TECHNICIAN documented as of this encounter Last Filed Vital Signs Vital Sign Reading Time Taken Comments Blood Pressure 123/74 08/08/2020 11:34 AM PLANETARIUM TECHNICIAN Pulse 74 08/08/2020 11:34 AM PLANETARIUM TECHNICIAN Temperature 36.6 ??C (97.9 ??F) 08/08/2020 11:[address] Respiratory Rate 18 08/08/2020 11:34 AM PLANETARIUM TECHNICIAN Oxygen Saturation 95% 08/08/2020 11:34 AM PLANETARIUM TECHNICIAN Inhaled Oxygen Concentration - - Weight 69.4 kg (153 lb) 08/08/2020 11:34 AM PLANETARIUM TECHNICIAN Height 154.9 cm (5' 1) 08/08/2020 11:34 AM PLANETARIUM TECHNICIAN Body Mass Index 28.91 08/08/2020 11:34 AM PLANETARIUM TECHNICIAN documented in this encounter Functional Status [...] Instructions* Johann العراقي - 08/08/2020 11:34 AM PLANETARIUM TECHNICIAN Ms. Hogan, You were seen in the [...] to be seen. Please call us at [phone], option 1 thenoption 1 in the morning you would like to be seen. For scheduling routine appointments, requesting refills or leaving a message for your doctor, the office phone is [phone]. You will be given options to get to the assistance you need. Phone lines are open from 8:00 am to4:30 pm Wednesday through Wednesday. All prescription refills must be requested during regular office phone hours. Our fax number is [phone]. After hours urgent calls that cannot wait untill phone lines are open on the next business day are given to the General Internal Medicine physician personal financial planner. Please call [phone]. Identify yourself as a patient in our practice and give the metal wire coating operator your doctor's name. The metal wire coating operator will contact the physician personal financial planner. You can generally expect a return call within 30 minutes. On weekends, physicians are seeing hospitalized patients and there maybe a longer wait. Visit our website at [email or web address] for information about our practice and an interactive health encyclopedia. Our clinic's missed appointment policy is: - Patients with 3 consecutively missed appointments OR 3 missed appointments in a 12 month period will no longer be seen by General Internal Medicine. They will be asked to seek Primary Care outside of [facility]. - A missed appointment is defined as: * An appointment cancelled less than 24 hours in advance *Arriving to a scheduled appointment too late to be seen (Patients who arrive to clinic later than their scheduled appointment time may not be seen) * Not showing up for an appointment ETARIUM TECHNICIAN documented in this encounter Progress Notes * [...] Highest level of risk: Moderate Suggested code: 48979 ETARIUM TECHNICIAN * Fabian Benoit - 08/08/2020 11:54 AM CST [facility] General Internal Medicine Acute Care Patient Note [...] smoking hx, vocal cord paralysis, presenting to [facility] clinic for right ear wound. She explains [...] COMPLEX) tablet Take by mouth DAILY. ??? qayakxu-jnksfuayp-rwql 333-133-5 MG tablet Take 1 tablet by [...] propionate (FLONASE) 50 MCG/ACT nasal spray [place] 2 sprays into each nostril 16 g 0 ??? gabapentin (NEURONTIN) 300 MG capsule TAKE 1 CAPSULE BY MOUTH THREE TIMES A DAY (Patient takingdifferently: Take 300 mg by mouth 3 times daily ) 90 capsule 5 ??? MOULOW-[id number]-[id number]-C-[id number] PO Take 1 tablet by mouth 3 times daily ??? meloxicam (MOBIC) 7.5 MG tablet TAKE 1 TABLET BY MOUTH EVERY DAY 60 tablet 2 ??? Weld-3 Fatty Acids (FISH OIL) 1000 MG capsule [...] and breath sounds normal. Fabian Benoit 08/08/2020 ETARIUM TECHNICIAN documented in this encounter Plan of Treatment Upcoming Encounters Date Type Department Care Team (Late st Contact Info) Description 08/02/2024 2:20 PM PLANETARIUM TECHNICIAN Appointment [facility] [place] [address] 08/02/2024 3:00 PM PLANETARIUM TECHNICIAN Office Visit [facility] - Hematology/Oncology [address] [place] [phone] Remi Beckett MD [facility] [place] [phone] 08/18/2024 1:45 PM PLANETARIUM TECHNICIAN Office Visit [facility] - ENT [address] [place] [phone] Neri Delgado MD [facility] [place] [address] 08/30/2024 2:20 PM PLANETARIUM TECHNICIAN Appointment [facility] [address] [place] [address] documented as of this encounter Visit Diagnoses Diagnosis Cellulitis of other specified site- Primary * Assessment & Plan Note - Thomas Higuera MD - 08/09/2020 10:14 AM PLANETARIUM TECHNICIAN Associated Problem(s): Cellulitis Inner/outer ear inflammation, cellulitis vs other, reported purulence -Treatment for purulent cellulitis, 5d clindamycin -f/u if no improvement ETARIUM TECHNICIAN documented in this encounter Care Teams Sheriff'S Sergeant Relationship Specialty Start Date End Date Taniya Grimes MD [address] [facility] 2L DIV OF [facility] [place] [address] PCP - General 07/01/20 05/10/22 Marylu Marie DO [address] [facility] 2L DIV [facility] [address] Resident - PCP Student Resident 06/26/20 01/11/22 documented as of this encounter
--- OUTSIDE RECORDS SUMMARY | 2024-07-26 08:43 | XMS_ITS | Encounter Summary ---
Author Organization [facility] Health Address [address] [place] [address] Care Team Providers Care Piccoloist Name Role Phone Marylu Marie DO Unavailable [...] Expiration Date Visits Re quested Visits Authorized [id number] 1 1 Encounter Details Date Type Department Care Team (Latest Contact Info) Description 08/19/2020 5:05 AM BUHR MILL OPERATOR - 08/29/2020 11:30 AM [facility] Hospital Encounter [facility] 6N ACUTE [address] [place] [address] Dionte Comer MD [address] [facility] 2L [place] [address] Otolaryngology Discharge Disposition: Home or Self Care [...] COVID-19? No / Unsure 08/17/2020 11:32 AM BUHR MILL OPERATOR documented as of this encounter Last Filed Vital Signs Vital Sign Reading Time Taken Comments Blood Pressure 103/65 08/29/2020 8:55 AM BUHR MILL OPERATOR Pulse 85 08/29/2020 8:55 AM BUHR MILL OPERATOR Temperature 36.5 ??C (97.7 ??F) 08/29/2020 8:55 AM CS T Respiratory Rate 18 08/29/2020 1:22 AM BUHR MILL OPERATOR Oxygen Saturation 95% 08/29/2020 8:55 AM BUHR MILL OPERATOR Inhaled Oxygen Concentration - - Weight 69.9 kg (154 lb) 08/19/2020 5:45 AM BUHR MILL OPERATOR Height 154.9 cm (5' 1) 08/19/2020 5:45 AM BUHR MILL OPERATOR Body Mass Index 29.1 08/19/2020 5:45 AM BUHR MILL OPERATOR documented in this encounter Functional Status [...] Discharge Summary Elizabeth Caicedo 60 year old [id number] Admit Date: 08/19/2020 Discharge Date and time: [...] at that time. Call our clinic at [phone] to confirm or to reschedule that appointment. [...] 3 grams of acetaminophen (a component of Tylenol,[place], Percocet) over a 24 hour period. ?? [...] our office and/or call the ENT resident sap portal consultant after hours if you develop fevers, chills, [...] nearest Emergency Room and call the hospital single pass soil stabilizer operator at [phone] dial [phone] and ask for the ENT resident sap portal consultant. Request an appointment with Speech Therapy? Yes [...] questions or concerns During business hours call: [phone] After 5 pm or on weekends call: and ask for the ENT resident sap portal consultant. Fabian Flores MD MILL OPERATOR documented in this encounter Discharge Instructions * Discharge Instructions* Fabian Flores MD - 08/29/2020 7:43 AM BUHR MILL OPERATOR Follow up with Dr. Comer in 2 weeks on Wednesday09/11/20 at 2:15 PM. Obtain blood work (renal function panel) at that time. Call our clinic at [phone] to confirm or to reschedule that appointment. [...] 3 grams of acetaminophen (a component of Tylenol,[place], Percocet) over a 24 hour period. Diet: [...] our office and/or call the ENT resident sap portal consultant after hours if you develop fevers, chills, [...] nearest Emergency Room and call the hospital single pass soil stabilizer operator at [phone] dial [phone] and ask for the ENT resident sap portal consultant. MILL OPERATOR documented in this encounter Medications at Time [...] times daily 30 capsule 1 08/29/2020 10/03/2020 brmbakh-mwocyebaj-utkf 333-133-5 MG tablet Take 1 tablet by [...] fluticasone propionate (FLONASE) 50 MCG/ACT nasal spray Fedscreek 2 sprays into each nostril 16 g 09/06/2019 04/11/2021 gabapentin (NEURONTIN) 300 MG capsuleIndications:Nicole stahl osteoarthritis of left hip TAKE 1 CAPSULE BY MOUTH THREE TIMES A DAY 90 capsule 5 03/08/2020 09/06/2020 PATAXI-GBFRVNMWG-NBE-C -HYAL PO Take 1 tablet by mouth 3 times daily 06/13/2023 levothyroxine (SYNTHROID) 112 MCG tablet Take 1 (one) tablet by mouth once daily 30 tablet 1 08/30/2020 10/14/2020 meloxicam (MOBIC) 7.5 MG tablet TAKE 1 TABLET BY MOUTH EVERY DAY 60 tablet 2 07/16/2020 01/13/2021 [place]-3 Fatty Acids (FISH OIL) 1000 MG capsule [...] this encounter Progress Notes * Charity Kwan, roto mixer operator - 08/29/2020 9:24 AM CST MEDICATION TO [...] the outpatient pharmacy at [phone]. Charity Kwan [facility] at [address], [address] Floor [place], [place] [address] Hours of Operation Wednesday - Wednesday: 8:00am to 6:00pm Wednesday: 9:00am to 1:00pm Epic: [facility] *Ensure the patient and clinic's nearby ZIP codes box is unchecked* MILL OPERATOR * Daiana Garcia RN - 08/29/2020 3:04 AM CST Problem: Fall Risk Goal: Fall risk and fall related injury risk are minimized (interventions related to the fall risk can be found in the flowsheet documentation) Outcome: Progressing Problem: Pain/Discomfort Goal: Patient exhibits reduced pain/discomfort as evidenced by pain scores Outcome: Progressing Problem: Thrombocytopenia/Bleeding Precautions Goal: Excessive bleeding will be minimized Outcome: Progressing MILL OPERATOR * Ros Gonzalez COTA - 08/28/2020 2:29 PM CST [facility] Physical Medicine and Rehabilitation Occupational Therapy Progress Note Patient: Elizabeth Caicedo Med Record Number: [id number] Date of : 1960 Age: [age] year [...] Patient will perform bed to chair?Independently ?? Kiln Drawer Goal: Patient to be independent/baseline with functional mobility and self care and be able to safely discharge to prior level of care ?? If patient is discharged from the facility, this note serves as a discharge note if further occupational therapy visits did not occur. Following therapy session, patient left sitting EOB with good safety, daughter in room, call light close. MILL OPERATOR * Munira Bates DO - 08/28/2020 12:38 [...] attending Dr. Dianna Bates DO Endocrinology Fellow MILL OPERATOR * Vince Willingham MD - 08/28/2020 12:06 [...] miralax daily PT/OT, activity: AAT, PT/OT ordered REGIONAL BUSINESS MANAGER: continue eval VTE Prophy: SCDs, q8h HSQ Endo/thyroid/parathyroid: f/u endo recs as above Drains: AGUSTÍN drains bilateral to bulb (LIS if not holding) Wound care: baci to incisions BID Stitches: bilateral necks, right medial incision opened 08/20 SW needs: likely needs Dispo: Floor Follow up: ENT- to be determined Endocrine- 6 weeks post surgery Vince Willingham MD Otolaryngology-Head and Neck Surgery 08/28/20 MILL OPERATOR * Vincent Bird RN - 08/28/2020 11:20 [...] Excessive bleeding will be minimized Outcome: Progressing MILL OPERATOR * Kareen Barrera PT - 08/28/2020 11:00 AM CST [facility] Physical Medicine and Rehabilitation PhysicalTherapy Progress Note Patient: Elizabeth Caicedo [facility] Record Number: [id number] Date of : 1960 Age: [age] year [...] UE arm press-ups, elbow curls and shoulder abd,adrein LE full arc quads, marching and hip [...] AD Patient will ascend/descend 4 steps: Independent Kiln Drawer Goal(s): Patient to be independent/baseline with functional [...] call for assistance prior to getting up, RNVincent, informed. MILL OPERATOR * Kathleen Bates RN - 08/27/2020 10:11 [...] measures taken to prevent bleeding Outcome: Progressing MILL OPERATOR Ying Coombs PT - 08/27/2020 1:19 PM CST [facility] Department of Physical Medicine & Rehabilitation Progress Note Patient: Elizabeth Caicedo [facility] Record Number: [id number] Date of : 1960 Age: [age] year [...] at this time. Will continue to follow. MILL OPERATOR * Charisma Truong, OT - 08/27/2020 10:59 AM CST [facility] Physical Medicine and Rehabilitation Occupational Therapy Progress Note Patient: Elizabeth Caicedo Med Record Number: [id number] Date of : 1960 Age: [age] year [...] Patient will perform bed to chair?Independently ?? Penitentiary Goal: Patient to be independent/baseline with functional [...] within reach and with Christa FERRIS aware. MILL OPERATOR * Christa Crawford RN - 08/27/2020 7:47 [...] measures taken to prevent bleeding Outcome: Progressing MILL OPERATOR * Fabian Flores MD - 08/27/2020 7:27 [...] Intake/Output Summary (Last 24 hours) at 08/27/2020 0754 Last data filed at 08/27/2020 0636 Gross [...] miralax daily PT/OT, activity: AAT, PT/OT ordered REGIONAL BUSINESS MANAGER: continue eval VTE Prophy: SCDs, q8h HSQ [...] Head and Neck Surgery 08/27/20 7:27 AM MILL OPERATOR * Daiana Garcia RN - 08/26/2020 9:07 [...] as evidenced by pain scores Outcome: Progressing MILL OPERATOR * Jessica Merritt RN - 08/26/2020 4:12 PM CST Referrals sent for [facility]. Ketan with [facility] for DME needs. MILL OPERATOR * Munira Bates DO - 08/26/2020 3:29 [...] results for input(s): MG in the last 64867 hours. Phosphorus: Recent Labs Component Name 08/26/20 [...] Endocrinology Fellow D/w my attending Dr. Bustamante MILL OPERATOR Associated attestation - Yosi Bustamante MD - 08/26/2020 3:55 PM BUHR MILL OPERATOR I HAVE SEEN AND EXAMINED THE PATIENT [...] and non-pharmacological pain management strategies. Outcome: Progressing MILL OPERATOR * Danial Lashon M., PT - 08/26/2020 11:33 AM CST [facility] Physical Medicine and Rehabilitation PhysicalTherapy Progress Note Patient: Elizabeth Caicedo Med Record Number: [id number] Date of : 1960 Age: [age] year [...] AD Patient will ascend/descend 4 steps: Independent Penitentiary Goal(s): Patient to be independent/baseline with functional mobility and self care and be able to safely discharge to prior level of care ?? Update Treatment Plan: Continue as per plan If patient is discharged from the facility, this note serves as a discharge note if further physical therapy visits did not occur. Following therapy session, patient left in bed. MILL OPERATOR * Charisma Truong OT - 08/26/2020 10:09 AM CST [facility] Physical Medicine and Rehabilitation Occupational Therapy Progress Note Patient: Elizabeth Caicedo Med Record Number: [id number] Date of : 1960 Age: [age] year [...] will perform bed to chair Independently ?? Kiln Drawer Goal: Patient to be independent/baseline with functional [...] light within reach and with RNKrissy aware. MILL OPERATOR * Juliette Parrish RD/CANDE - 08/26/2020 9:07 [...] medically able Monitor nutrition per nutrition guidelines. MILL OPERATOR * Vince Willingham MD - 08/26/2020 7:02 [...] Temp (30hrs) Max:98.5 ??F (36.9 ??C) Vitals: 08/25/20 1960 08/25/20 2017 08/26/20 0005 08/26/20 0420 BP: [...] miralax daily PT/OT, activity: AAT, PT/OT ordered REGIONAL BUSINESS MANAGER: continue eval VTE Prophy: SCDs, q8h HSQ [...] Head and Neck Surgery 08/26/20 7:03 AM MILL OPERATOR * Daiana Garcia RN - 08/25/2020 11:16 PM CST Problem: Pain/Discomfort Goal: Patient exhibits reduced pain/discomfort as evidenced by pain scores 08/25/20202314 by Daiana Garcia RN Outcome: Progressing 08/25/20202311 by Daiana Garcia RN Outcome: Progressing Problem: Thrombocytopenia/Bleeding Precautions Goal: Excessive bleeding will be minimized Outcome: Progressing MILL OPERATOR * Krissy Mendoza RN - 08/25/2020 12:17 [...] to engage in desired activity. Outcome: Progressing MILL OPERATOR * Munira Bates DO - 08/25/2020 9:25 AM CST Endocrinology Plan of care Note Calcium trend reviewed Phosphorus increasing Ca corrected for albumin above 8 today. Recommendation: Would hold on the Iv Ca for today and adjust po regimen Increase Oscal to 2 tabs TID Continue Calcitriol 0.5 mcg BID Continue levothyroxine 112 mcg daily Pathology pending Munira Bates DO Endocrinology Fellow MILL OPERATOR * Fabian Flores MD - 08/25/2020 9:08 [...] miralax daily PT/OT, activity: AAT, PT/OT ordered REGIONAL BUSINESS MANAGER: continue eval VTE Prophy: SCDs, q8h HSQ [...] Head and Neck Surgery 08/25/20 9:09 AM MILL OPERATOR * Samuel Pena RN - 08/25/2020 12:35 AM CST Problem: Tobacco Use Goal: Inpatient tobacco-use cessation counseling participation Outcome: Progressing Problem: Fall Risk Goal: Fall risk and fall related injury risk are minimized (interventions related to the fall risk can be found in the flowsheet documentation) Outcome: Progressing MILL OPERATOR * Colton Khan MD - 08/24/2020 4:11 [...] Head & Neck Surgery 08/24/2020 4:16 PM MILL OPERATOR * Libia Yanez RN - 08/24/2020 7:37 [...] find him. Report given to Lizy FERRIS. 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 PLAN: - Transfer to floor (orders in) - Continue modified consistency diet (per REGIONAL BUSINESS MANAGER recs), may consider d/cing Dobhoff tube if [...] senokot daily PT/OT, activity: AAT, PT/OT ordered REGIONAL BUSINESS MANAGER: saw 08/23-recommending modified consistency diet VTE Prophy: [...] Head and Neck Surgery 08/24/20 7:47 AM MILL OPERATOR * Lashon Barrow, PT - 08/23/2020 3:46 PM CST [facility] Physical Medicine and Rehabilitation Physical Therapy Initial Evaluation Note Patient: Elizabeth Caicedo [facility] Record Number: [id number] Date of : 1960 Age: [age] year [...] AD Patient will ascend/descend 4 steps: Independent Penitentiary Goal(s): Patient to be independent/baseline with functional [...] alarm on and with calllight within reach MILL OPERATOR * Munira Bates DO - 08/23/2020 2:08 PM CST [facility] Endocrinology Progress note Subjective: Taking in some [...] Data: CBC: Recent Labs Component Name 08/22/20 23508/21/20 2344 08/20/20 2324 WBC 13.1* 10.3 12.6* [...] results for input(s): MG in the last 12800 hours. Phosphorus: Recent Labs Component Name 08/22/20 [...] Endocrinology Fellow D/w my attending Dr. Bustamante MILL OPERATOR Associated attestation - Yosi Bustamante MD - 08/23/2020 2:32 PM BUHR MILL OPERATOR I HAVE SEEN AND EXAMINED THE PATIENT WITH THE ENDOCRINE FELLOW AND I AGREE WITH THE FINDINGS AND PLAN OF CARE DOCUMENTED BY THE ENDOCRINE FELLOW DATE OF SERVICE 08/23/2020 Signed electronically Yosi Bustamante MD Professor of Internal Medicine * Kym Priest OT - 08/23/2020 1:44 PM CST [facility] Physical Medicine and Rehabilitation Occupational Therapy Initial Evaluation Note Patient: Elizabeth Caicedo [facility] Record Number: [id number] Date of : 1960 Age: [age] year [...] Patient will perform bed to chair Independently Kiln Drawer Goal: Patient to be independent/baseline with functional mobility and self care and be able to safely discharge to prior level of care If patient is discharged from the facility, this note serves as a discharge summary if further occupational therapy visits did not occur. Following therapy session, patient left in patient bedside chair, with call light within reach and with RN, Andria kasper. MILL OPERATOR * Wilian La MD - 08/23/2020 11:20 [...] floor - Start modified consistency diet (per REGIONAL BUSINESS MANAGER recs) - PRN oxycodone for pain management [...] senokot daily PT/OT, activity: AAT, PT/OT ordered REGIONAL BUSINESS MANAGER: manjinder 08/23-recommending modified consistency diet VTE Prophy: [...] Otolaryngology Head & Neck Surgery PGY-2 08/23/2020 MILL OPERATOR * Myra Ignacio, REGIONAL BUSINESS MANAGER - 08/23/2020 8:50 AM CST [facility] Speech Language Pathology Speech Pathology Swallow Therapy Patient: Elizabeth Caicedo [facility] Record Number [id number] Date of : 1960 Age: [age] year [...] visits did not occur. Myra Ignacio MA, CCC-REGIONAL BUSINESS MANAGER, [employer]-S Speech Language Pathologist Department of Otolaryngology- Head and Neck Surgery MILL OPERATOR * Munira Bates DO - 08/22/2020 10:25 [...] BMP: Recent Labs Component Name 08/21/20 2344 08/20/204 08/19/20 2348 NA 144 136 137 CL 101 98 103 CO2 34* 30* 24 BUN 5* 7 10 CREATININE 0.6 0.7 0.7 CALCIUM 8.2* 8.2* 7.7* LFTs: Recent Labs Component Name 03/07/20 1519 AST 23 ALT 26 ALKPHOS 94 TBILI 0.5 ALB 3.8 Magnesium: No results for input(s): MG in the last 80435 hours. Phosphorus: Recent Labs Component Name 08/21/20 2344 08/20/204 08/19/20 2348 PHOS 4.4 4.5 6.5* Thyroid [...] Endocrinology Fellow D/w my attending Dr. Bustamante MILL OPERATOR Associated attestation - Yosi Bustamante MD - 08/22/2020 11:00 AM BUHR MILL OPERATOR I HAVE SEEN AND EXAMINED THE PATIENT WITH THE ENDOCRINE FELLOW AND I AGREE WITH THE FINDINGS AND PLAN OF CARE DOCUMENTED BY THE ENDOCRINE FELLOW DATE OF SERVICE 08/22/2020 Signed electronically Yosi Bustamante MD Professor of Internal Medicine * Beatriz Aguero RN - 08/22/2020 10:01 AM CST A Chart Review has been conducted by Case Management. Insurance: [facility]- Anticipated level of care at discharge: Unknown Anticipate Home with Home Care Pending Therapy evaluations when appropriate per ENT. Discharge Plan: Anticipate Home with Home Care Basic Needs Assessment (BNA) Score: 7 PCP: Taniya Grimes MD ; Pager: [phone]; Per nursing assessments: 08/19/20 admit 60 year [...] and thyroid mass with tracheal involvement. Transportation ([facility] Pending DC disposition [facility] Patient Advocate/Support: Boogie Caicedo Spouse Home/Functional Status: Functional and [...] For any questions or needs please contact: [employer] Name/Phone number: Beatriz Aguero RN., ICU x [phone] MILL OPERATOR * Myra Ignacio SLP - 08/22/2020 9:41 AM CST [facility] Physical Medicine and Rehabilitation Speech Therapy Bedside Swallow Evaluation Patient: Elizabeth Caicedo [facility] Record Number: [id number] Date of : 1960 Age: [age] year [...] dissections, 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 She reports swallowing is about the same [...] demonstrate understanding of swallow guidelines and strategies. Kiln Drawer Goal (s): Patient to be independent/baseline with [...] least twice each day Myra Ignacio MA, CCC-REGIONAL BUSINESS MANAGER, [facility] Speech Language Pathologist Department of Otolaryngology- Head and Neck Surgery MILL OPERATOR * Wilian La MD - 08/22/2020 7:24 [...] PT/OT, activity: AAT, hold PT/OT for now REGIONAL BUSINESS MANAGER: TBD VTE Prophy: SCDs, q8h HSQ Endo/thyroid/parathyroid: f/u endo recs as above Drains: AGUSTÍN drains bilateral to LIS Wound care: baci to incisions BID Stitches: bilateral necks, right medial incision opened 08/20 Trach: none SW needs: likely needs HH Dispo: 3ICU F/u: ENT- to be determined Endocrine- 6 weeks post surgery Sharif La MD Otolaryngology Head & Neck Surgery PGY-2 08/22/2020 MILL OPERATOR * Munira Bates, DO - 08/21/2020 4:27 [...] results for input(s): MG in the last 28423 hours. Phosphorus: Recent Labs Component Name 08/20/20232308/19/202347 [...] follow up arrangements Munira Bates, DO Endocrinology MILL OPERATOR Associated attestation - Yosi Bustamante MD - 08/21/2020 8:05 PM BUHR MILL OPERATOR I HAVE SEEN AND EXAMINED THE PATIENT [...] ( +) NO PARESTHESIAS LAB Results for SCOTT CAICEDOALEXSANDRA Mckay ( ) as of 08/21/2020 19:51 Ref. Range 03/07/2020 15:19 08/20/2020 05:08 Hemoglobin A1c Latest Ref Range: 4.4 - 6.3 % 5.5 Estimated Average Glucose Latest Units: mg/dL 111 PTH Intact Latest Ref Range: 8.0 - 77.0 pg/mL <4.0 (L) TSH Latest Ref Range: 0.350 - 4.940 uIU/mL 1.520 Results for ESTEBAN CAICEDOHiral Mckay ( ) as of 08/21/2020 19:51 Ref. [...] [] vitamin D (ergocalciferol) (DRISDOL) 1.25 MG (21154 UT) capsule 50,000 Units, Oral, Once CONTINUOUS [...] W infused over 12 hours), Vit. D 11254 Units x1 Daily Labs: CBC, BMP, Mg, Phos daily, q6h iCal q12 hours- calcium, albumin, phosphorous, magnesium Other labs- thyroglobulin reflex profile, vitamin D Diet: NPO for now Bowel Regimen: senokot daily PT/OT, activity: AAT, hold PT/OT for now REGIONAL BUSINESS MANAGER: TBD VTE Prophy: SCDs, q8h HSQ Endo/thyroid/parathyroid: f/u endo recs as above Drains: AGUSTÍN drains bilateral to LIS Wound care: baci to incisions BID Stitches: bilateral necks, right medial incision opened 08/20 Trach: none SW needs: likely needs HH Dispo: 3ICU F/u: ENT- to be determined Endocrine- 6 weeks post surgery Isa Jimenez MD MILL OPERATOR * Fabian Flores MD - 08/20/2020 8:09 [...] PT/OT, activity: AAT, hold PT/OT for now REGIONAL BUSINESS MANAGER: TBD VTE Prophy: SCDs, q8h HSQ Endo/thyroid/parathyroid: will consult Endocrine regarding calcium levels, thyroid replacement, appreciate recs Drains: AGUSTÍN drains bilateral to LIS Wound care: baci to incisions BID Stitches: bilateral necks, right medial incision opened at bedside today Trach: none SW needs: likely needs HH Dispo: 3ICU Fabian Flores MD PGY-3 Otolaryngology - Head and Neck Surgery 08/20/20 8:27 AM MILL OPERATOR * Mariah King RN - 08/20/2020 4:57 AM CST Ongoing MILL OPERATOR documented in this encounter H&P Notes * [...] COMPLEX) tablet Take by mouth DAILY. ??? taafxbg-cyrfyqove-inho 333-133-5 MG tablet Take 1 tablet by [...] fluticasone propionate (FLONASE) 50 MCG/ACT nasal spray Fedscreek 2 sprays into each nostril 16 g 0 ??? gabapentin (NEURONTIN) 300 MG capsule TAKE 1 CAPSULE BY MOUTH THREE TIMES A DAY (Patient takingdifferently: Take 300 mg by mouth 3 times daily ) 90 capsule 5 ??? BMYKOM-NCZVCIVMA-BXL-C-HYAL PO Take 1 tablet by mouth 3 times daily ??? meloxicam (MOBIC) 7.5 MG tablet TAKE 1 TABLET BY MOUTH EVERY DAY 60 tablet 2 ??? [place]-3 Fatty Acids (FISH OIL) 1000 MG capsule [...] as noted in the HPI and per director biomedical engineering notes PHYSICAL EXAM BP 138/75 Pulse 58 [...] in chart Resident signature: Isa Jimenez MD MILL OPERATOR Associated attestation - Dionte Comer MD - 08/19/2020 7:14 AM BUHR MILL OPERATOR I saw and examined the patient on [...] me she still needs to see the senior instructional designer. + smoker Denies family hx of thyroid [...] No Yes Sig: Take by mouth DAILY. BLNEOF-GJNISYYIV-ZHS-C-HYAL PO 08/17/2020 Yes No Sig: Take 1 tablet by mouth 3 times daily [place]-3 Fatty Acids (FISH OIL) 1000 MG capsule [...] Take 1 tablet by mouth at bedtime meoftaz-fpdqrtptv-egnv 333-133-5 MG tablet 08/17/2020 Yes No Sig: [...] spray 08/19/2020 at 0330 Yes Yes Sig: Fedscreek 2 sprays into each nostril gabapentin (NEURONTIN) [...] fluticasone propionate (FLONASE) 50 MCG/ACT nasal spray Fedscreek 2 sprays into each nostril ??? gabapentin [...] extremities well CBC: Recent Labs Component Name 08/19/20234708/01/20162603/07/20 1519 WBC 15.3* 9.0 7.9 RBC 4.82 4.91 4.54 HGB 14.3 14.2 13.3 HCT 43.7 43.5 40.5 BMP: Recent Labs Component Name 08/19/20234708/01/20 1627 03/07/20 1519 NA 137 141 143 CL 103 100 106 CO2 24 32* 33* BUN 10 12 13 CREATININE 0.7 0.8 0.8 CALCIUM 7.7* 9.4 8.8 LFTs: Recent Labs Component Name 03/07/20 1519 AST 23 ALT 26 ALKPHOS 94 TBILI 0.5 ALB 3.8 Magnesium: No results for input(s): MG in the last 06135 hours. Phosphorus: Recent Labs Component Name 08/19/20 2348 PHOS 6.5* Thyroid studies: Lab results smartLinks are not currently available Recent Labs Component Name 03/07/20 151 HGBA1C 5.5 Recent Labs Component Name 03/07/20 1519 TSH 1.520 No results for input(s): MICROALBCREA in the last 55538 hours. Recent Labs Component Name 03/07/20 1519 HGBA1C 5.5 Recent Labs Component Name 08/19/20 2348 08/01/20 1627 03/07/20 1519 POTASSIUM 4.5 3.9 3.9 CO2 24 32* 33* BUN 10 12 13 CREATININE 0.7 0.8 0.8 GLUCOSE 204* 82 57* CALCIUM 7.7* 9.4 8.8 Recent Labs Component Name 03/07/20 1519 CHOL 150 TRIG 93 HDL 51 LDLCALC 80 FINE NEEDLE ASPIRATION - THYROID (STL): [id number] Order: [id number] Collected: 04/18/2020 ??4:07 PM Status: Final result ?Visible to patient: No (not released) Dx: Thyroid nodule Component Specimen Adequacy Adequate cellularity for evaluation. Final Diagnosis Thyroid nodule, right, US-FNA: - Benign - Consistent with benign follicular nodule FINE NEEDLE ASPIRATION - THYROID (STL): [id number] Order: [id number] Collected: 08/01/2020 ??2:51 PM Status: Final result [...] were determined by the Histopathology Laboratory of [facility]. Some of these tests rely on the use of analyte-specific reagents and are subject to specific labeling requirements by the [place] Food and Drug Administration. Such tests were developed by the Histology Laboratory of [facility] and have not been cleared [...] TR 4 nodule, recommend short-term follow-up (image [id number]). The second nodule is well-circumscribed, hypoechoic, solid nodule, measuring 0.6 x 0.6 x 0.3 cm; this is a TR 4 nodule, which is not suspicious (image [id number]). ?? The isthmus is mildly thickened. Vascularity [...] Munira Bates, DO Endocrinology, Diabetes & Metabolism MILL OPERATOR Associated attestation - Yosi Bustamante MD - 08/20/2020 4:19 PM BUHR MILL OPERATOR I HAVE SEEN AND EXAMINED THE PATIENT [...] everywhere and media and results section in [facility] Results for ELIZABETH CAICEDO ( ) [...] Release to patient Immediate Isa Jimenez MD MILL OPERATOR Associated attestation - Dionte Comer MD - 08/19/2020 4:13 PM BUHR MILL OPERATOR I have reviewed the above brief operative note as entered by the resident and agree with the above description; however, for the most definitive information providers should refer to the full operative note as dictated. Edmar Comer MD * Operative - Dorian Merrill MD - 08/19/2020 8:34 AM CST [facility] DIVISION OF PEDIATRIC OTOLARYNGOLOGY- HEAD & NECK SURGERY OPERATIVE REPORT PATIENT NAME: Elizabeth Caicedo DATE OF : 1960 CSN: [id number] DATE OF OPERATION: 08/19/2020 0730 Pre Operative Diagnoses: Thyroid cancer with tracheal invasion Post Operative Diagnoses: Same Procedure: Cricotracheal resection and re-anastomosis Surgeon: Dorian Merrill M.D. Sawmill Tally Clerk: Isa Jimenez M.D. Anesthesia: General Indications: Elizabeth [...] and a sergo was placed in the green party wall. A vertical incision was made [...] none Postop Disposition/Plan: - Per Dr. Comer MILL OPERATOR * Operative - Dionte Comer MD - [...] Bilateral modified radical neck dissection, CPT code 10620-61. 2. Total thyroidectomy with central neck dissection and tracheal resection and esophageal muscle resection, CPT code 91434. 3. Parathyroid implantation of the right deltoid, CPT code 05214. 4. Laryngoscopy, diagnostic, CPT code 01220. 5. Rigid esophagoscopy, diagnostic, CPT code 83434. SURGEON: Edmar Comer MD LENO SEWER: Isa Jimenez MD ESTIMATED BLOOD LOSS: 125 [...] controlled utilizing multiple 2-0 silk sutures in [id number] fashion. We checked this area again twice, [...] tumor, and as I dissected across thecommon green party wall, we decided to make our [...] paratracheal mass, query parathyroid for frozen. DRAINS: [place] to the central neck and 19-Tajik round to each lateral deep neck. COMPLICATIONS: None. DISPOSITION: Recovery and then intensive care unit. MD ONOFRE [email or web address]/[id number] Doc ID: [id number] Voice Job ID: [id number] MILL OPERATOR documented in this encounter Miscellaneous Notes [...] Diagnosis (specify): ____Clinically undetermined/unknown ____Edmar Comer MD, [facility] Physician Signature Date/Time 09/03/2020 This is part of the medical record MILL OPERATOR documented in this encounter Plan of Treatment Upcoming Encounters Date Type Department Care Team (Late st Contact Info) Description 08/02/2024 2:20 PM BUHR MILL OPERATOR Appointment [facility] [address] [place] [phone] 08/02/2024 3:00 PM BUHR MILL OPERATOR Office Visit [facility] - Hematology/Oncology [address] [place] [phone] Remi Beckett MD [address] [place] [phone] 08/18/2024 1:45 PM BUHR MILL OPERATOR Office Visit [facility] - ENT [address] [place] [phone] Neri Delgado MD [address] [place] [address] 08/30/2024 2:20 PM BUHR MILL OPERATOR Appointment [facility] [address] [place] [address] documented as of this encounter Procedures Procedure Name Priority Date/Time Associated Diagnosis Comments CALCIUM IONIZED WHOLE BLOOD Routine 08/29/2020 4:08 AM BUHR MILL OPERATOR PTH INTACT W/O CALCIUM AM Draw 08/29/2020 4:08 AM BUHR MILL OPERATOR CBC W/O DIFFERENTIAL Routine 08/29/2020 4:08 AM BUHR MILL OPERATOR BASIC METABOLIC PANEL (CALCIUM TOTAL) Routine 08/29/2020 4:08 AM BUHR MILL OPERATOR PHOSPHORUS BLOOD Routine 08/29/2020 4:08 AM BUHR MILL OPERATOR MAGNESIUM BLOOD Routine 08/29/2020 4:08 AM BUHR MILL OPERATOR ALBUMIN BLOOD Routine 08/29/2020 4:08 AM BUHR MILL OPERATOR CALCIUM IONIZED WHOLE BLOOD Routine 08/28/2020 9:42 PM BUHR MILL OPERATOR CALCIUM IONIZED WHOLE BLOOD Routine 08/28/2020 4:05 PM BUHR MILL OPERATOR CALCIUM IONIZED WHOLE BLOOD Routine 08/28/2020 11:54 AM BUHR MILL OPERATOR CALCIUM IONIZED WHOLE BLOOD Routine 08/28/2020 5:49 AM BUHR MILL OPERATOR PTH INTACT W/O CALCIUM AM Draw 08/28/2020 5:49 AM BUHR MILL OPERATOR CBC W/O DIFFERENTIAL Routine 08/28/2020 5:49 AM BUHR MILL OPERATOR BASIC METABOLIC PANEL (CALCIUM TOTAL) Routine 08/28/2020 5:49 AM BUHR MILL OPERATOR PHOSPHORUS BLOOD Routine 08/28/2020 5:49 AM BUHR MILL OPERATOR MAGNESIUM BLOOD Routine 08/28/2020 5:49 AM BUHR MILL OPERATOR ALBUMIN BLOOD Routine 08/28/2020 5:49 AM BUHR MILL OPERATOR CALCIUM IONIZED WHOLE BLOOD Routine 08/27/2020 4:53 PM BUHR MILL OPERATOR GLUCOSE - POINT OF CARE Routine 08/27/2020 4:27 PM BUHR MILL OPERATOR CALCIUM IONIZED WHOLE BLOOD Routine 08/27/2020 11:41 AM BUHR MILL OPERATOR CALCIUM IONIZED WHOLE BLOOD Routine 08/27/2020 5:48 AM BUHR MILL OPERATOR PTH INTACT W/O CALCIUM AM Draw 08/27/2020 5:48 AM BUHR MILL OPERATOR CBC W/O DIFFERENTIAL Routine 08/27/2020 5:48 AM BUHR MILL OPERATOR BASIC METABOLIC PANEL (CALCIUM TOTAL) Routine 08/27/2020 5:48 AM BUHR MILL OPERATOR PHOSPHORUS BLOOD Routine 08/27/2020 5:48 AM BUHR MILL OPERATOR MAGNESIUM BLOOD Routine 08/27/2020 5:48 AM BUHR MILL OPERATOR ALBUMIN BLOOD Routine 08/27/2020 5:48 AM BUHR MILL OPERATOR CALCIUM IONIZED WHOLE BLOOD Routine 08/26/2020 4:20 PM BUHR MILL OPERATOR CALCIUM IONIZED WHOLE BLOOD Routine 08/26/2020 11:35 AM BUHR MILL OPERATOR CALCIUM IONIZED WHOLE BLOOD Routine 08/26/2020 6:43 AM BUHR MILL OPERATOR CALCIUM IONIZED WHOLE BLOOD Routine 08/26/2020 12:41 AM BUHR MILL OPERATOR PTH INTACT W/O CALCIUM AM Draw 08/26/2020 12:41 AM BUHR MILL OPERATOR CBC W/O DIFFERENTIAL Routine 08/26/2020 12:41 AM BUHR MILL OPERATOR BASIC METABOLIC PANEL (CALCIUM TOTAL) Routine 08/26/2020 12:41 AM BUHR MILL OPERATOR PHOSPHORUS BLOOD Routine 08/26/2020 12:4 1 AM BUHR MILL OPERATOR MAGNESIUM BLOOD Routine 08/26/2020 12:41 AM BUHR MILL OPERATOR ALBUMIN BLOOD Routine 08/26/2020 12:41 AM BUHR MILL OPERATOR CALCIUM IONIZED WHOLE BLOOD Routine 08/25/2020 4:06 PM BUHR MILL OPERATOR CALCIUM URINE RANDOM Routine 08/25/2020 1:12 PM BUHR MILL OPERATOR CALCIUM IONIZED WHOLE BLOOD Routine 08/25/2020 10:53 AM BUHR MILL OPERATOR CALCIUM IONIZED WHOLE BLOOD Routine 08/25/2020 9:04 AM BUHR MILL OPERATOR CALCIUM IONIZED WHOLE BLOOD Routine 08/25/2020 4:16 AM BUHR MILL OPERATOR PTH INTACT W/O CALCIUM AM Draw 08/25/2020 4:16 AM BUHR MILL OPERATOR CBC W/O DIFFERENTIAL Routine 08/25/2020 4:16 AM BUHR MILL OPERATOR BASIC METABOLIC PANEL (CALCIUM TOTAL) Routine 08/25/2020 4:16 AM BUHR MILL OPERATOR PHOSPHORUS BLOOD Routine 08/25/2020 4:16 AM BUHR MILL OPERATOR MAGNESIUM BLOOD Routine 08/25/2020 4:16 AM BUHR MILL OPERATOR ALBUMIN BLOOD Routine 08/25/2020 4:16 AM BUHR MILL OPERATOR CALCIUM IONIZED WHOLE BLOOD Routine 08/24/2020 4:50 PM BUHR MILL OPERATOR CALCIUM IONIZED WHOLE BLOOD Routine 08/24/2020 10:42 AM BUHR MILL OPERATOR CALCIUM IONIZED WHOLE BLOOD Routine 08/24/2020 4:17 AM BUHR MILL OPERATOR CALCIUM URINE RANDOM Routine 08/24/2020 2:48 AM BUHR MILL OPERATOR CALCIUM IONIZED WHOLE BLOOD Routine 08/24/2020 12:05 AM BUHR MILL OPERATOR PTH INTACT W/O CALCIUM AM Draw 08/24/2020 12:05 AM BUHR MILL OPERATOR CBC W/O DIFFERENTIAL Routine 08/24/2020 12:05 AM BUHR MILL OPERATOR BASIC METABOLIC PANEL (CALCIUM TOTAL) Routine 08/24/2020 12:05 AM BUHR MILL OPERATOR PHOSPHORUS BLOOD Routine 08/24/2020 12:0 5 AM BUHR MILL OPERATOR ALBUMIN BLOOD AM Draw 08/24/2020 12:05 AM BUHR MILL OPERATOR CALCIUM IONIZED WHOLE BLOOD Routine 08/23/2020 5:31 PM BUHR MILL OPERATOR OT EVAL AND TREAT Routine 08/23/2020 11: 25 AM BUHR MILL OPERATOR CALCIUM IONIZED WHOLE BLOOD Routine 08/23/2020 10:49 AM BUHR MILL OPERATOR MAGNESIUM BLOOD Routine 08/23/2020 10:49 AM BUHR MILL OPERATOR CALCIUM URINE RANDOM Routine 08/23/2020 5:04 AM BUHR MILL OPERATOR CALCIUM IONIZED WHOLE BLOOD Routine 08/23/2020 4:28 AM BUHR MILL OPERATOR PTH INTACT W/O CALCIUM AM Draw 08/23/2020 4:28 AM BUHR MILL OPERATOR BASIC METABOLIC PANEL (CALCIUM TOTAL) Add on 08/23/2020 4:28 AM BUHR MILL OPERATOR ALBUMIN BLOOD AM Draw 08/23/2020 4:28 AM BUHR MILL OPERATOR PREPARE RBC LEUKOREDUCED UNIT Routine 08/23/2020 2:17 AM BUHR MILL OPERATOR CALCIUM IONIZED WHOLE BLOOD Routine 08/22/2020 11:50 PM BUHR MILL OPERATOR CBC W/O DIFFERENTIAL Routine 08/22/2020 11:50 PM BUHR MILL OPERATOR BASIC METABOLIC PANEL (CALCIUM TOTAL) Routine 08/22/2020 11:50 PM BUHR MILL OPERATOR PHOSPHORUS BLOOD Routine 08/22/2020 11:5 0 PM BUHR MILL OPERATOR CALCIUM IONIZED WHOLE BLOOD Routine 08/22/2020 4:36 PM BUHR MILL OPERATOR CALCIUM IONIZED WHOLE BLOOD Routine 08/22/2020 11:05 AM BUHR MILL OPERATOR RENAL FUNCTION PANEL STAT 08/22/2020 11:05 AM BUHR MILL OPERATOR MAGNESIUM BLOOD Routine 08/22/2020 11:05 AM BUHR MILL OPERATOR CALCIUM IONIZED WHOLE BLOOD Routine 08/22/2020 5:04 AM BUHR MILL OPERATOR CBC W/O DIFFERENTIAL Routine 08/21/2020 11:44 PM BUHR MILL OPERATOR BASIC METABOLIC PANEL (CALCIUM TOTAL) Routine 08/21/2020 11:44 PM BUHR MILL OPERATOR PHOSPHORUS BLOOD Routine 08/21/2020 11:4 4 PM BUHR MILL OPERATOR MAGNESIUM BLOOD Routine 08/21/2020 11:44 PM BUHR MILL OPERATOR CALCIUM IONIZED WHOLE BLOOD Routine 08/21/2020 11:43 PM BUHR MILL OPERATOR CALCIUM IONIZED WHOLE BLOOD Routine 08/21/2020 5:34 PM BUHR MILL OPERATOR MAGNESIUM BLOOD Routine 08/21/2020 12:01 PM BUHR MILL OPERATOR CALCIUM IONIZED WHOLE BLOOD Routine 08/21/2020 11:07 AM BUHR MILL OPERATOR CALCIUM IONIZED WHOLE BLOOD Routine 08/21/2020 4:25 AM BUHR MILL OPERATOR THYROGLOBULIN REFLEX PROFILE AM Draw 08/21/2020 4:25 AM BUHR MILL OPERATOR THYROGLOBULIN BY ANTONIETA RFLXED Routine 08/21/2020 4:25 AM BUHR MILL OPERATOR VITAMIN D 25-HYDROXY AM Draw 08/21/2020 4:25 AM BUHR MILL OPERATOR CBC W/O DIFFERENTIAL Routine 08/20/2020 11:24 PM BUHR MILL OPERATOR BASIC METABOLIC PANEL (CALCIUM TOTAL) Routine 08/20/2020 11:24 PM BUHR MILL OPERATOR PHOSPHORUS BLOOD Routine 08/20/2020 11:2 4 PM BUHR MILL OPERATOR MAGNESIUM BLOOD Routine 08/20/2020 11:24 PM BUHR MILL OPERATOR CALCIUM IONIZED WHOLE BLOOD Routine 08/20/2020 11:04 PM BUHR MILL OPERATOR CALCIUM IONIZED WHOLE BLOOD Routine 08/20/2020 5:46 PM BUHR MILL OPERATOR CALCIUM IONIZED WHOLE BLOOD Routine 08/20/2020 11:41 AM BUHR MILL OPERATOR CALCIUM IONIZED WHOLE BLOOD Routine 08/20/2020 5:08 AM BUHR MILL OPERATOR PTH INTACT W/O CALCIUM AM Draw 08/20/2020 5:08 AM BUHR MILL OPERATOR CALCIUM IONIZED WHOLE BLOOD Routine 08/19/2020 11:48 PM BUHR MILL OPERATOR CBC W/O DIFFERENTIAL Routine 08/19/2020 11:48 PM BUHR MILL OPERATOR BASIC METABOLIC PANEL (CALCIUM TOTAL) Routine 08/19/2020 11:48 PM BUHR MILL OPERATOR PHOSPHORUS BLOOD Routine 08/19/2020 11:4 8 PM BUHR MILL OPERATOR MAGNESIUM BLOOD Routine 08/19/2020 11:48 PM BUHR MILL OPERATOR CALCIUM IONIZED WHOLE BLOOD Routine 08/19/2020 6:16 PM BUHR MILL OPERATOR XR ABDOMEN KUB PORTABLE STAT 08/19/2020 4:52 PM BUHR MILL OPERATOR Tracheal mass PATHOLOGY TISSUE Routine 08/19/2020 9:43 AM BUHR MILL OPERATOR 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 EXCISION/RESECTION/R EPAIR TRACHEA 08/19/2020 8:34 AM BUHR MILL OPERATOR 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 Special Needs Supine, STORZ VIDEO TOWER, LARYNGEAL TELESCOPES, LEICA Laryngeal Microscope W/ 400 MM LENS RLN monitoring,DS 2/8 DISSECTION NECK 08/19/2020 8:34 AM BUHR MILL OPERATOR 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 Special Needs Supine, STORZ VIDEO TOWER, LARYNGEAL TELESCOPES, LEICA Laryngeal Microscope W/ 400 MM LENS RLN monitoring,DS 2/8 LARYNGOSCOPY WITH MICROSCOPE 08/19/2020 8:34 AM BUHR MILL OPERATOR 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 Special Needs Supine, STORZ VIDEO TOWER, LARYNGEAL TELESCOPES, LEICA Laryngeal Microscope W/ 400 MM LENS RLN monitoring,DS 2/8 TYPE + SCREEN PANEL MARAL 08/19/2020 6 :18 AM BUHR MILL OPERATOR documented in this encounter Results * (ABNORMAL) RENAL FUNCTION PANEL (09/11/2020 2:13 PM BUHR MILL OPERATOR) BUN 13 7 - 26 mg/dL 09/11/2020 2:56 PM BUHR MILL OPERATOR [facility] Creatinine 0.7 0.6 - 1.2 mg/dL 09/11/2020 2:56 PM BUHR MILL OPERATOR [facility] Sodium 143 136 - 145 mmol/L 09/11/2020 2:56 PM [facility] Potassium 3.9 3.5 - 4.5 mmol/L 09/11/2020 2:56 PM [facility] Chloride 104 98 - 107 mmol/L 09/11/2020 2:56 PM [facility] CO2 29 22 - 29 mmol/L 09/11/2020 2:56 PM [facility] Glucose 91 70 - 115 mg/dL 09/11/2020 2:56 PM [facility] Albumin 3.0(L) 3.4 - 5.0 g/dL 09/11/2020 2:56 PM [facility] Calcium 8.5 8.4 - 10.2 mg/dL 09/11/2020 2:56 PM [facility] Phosphorus 5.5(H) 2.3 - 4.7 mg/dL 09/11/2020 2:56 PM [facility] Anion Gap 14 8 - 18 09/11/2020 2:56 PM [facility] BUN/Creatinine Ratio 19 7 - 23 09/11/2020 2:56 PM [facility] Osmolality Calculated 296 270 - 300 mOsm/kg 09/11/2020 2:56 PM [facility] eGFR >60 >60 mL/min/1.7 3 m2 09/11/2020 2:56 PM [facility] Blood BLOOD SPECIMEN / Unknown Lab Venipuncture / Unknown 09/11/2020 2:13 PM BUHR MILL OPERATOR 09/11/2020 2:29 PM BUHR MILL OPERATOR Dionte Comer MD LAB - [facility] Organization Address City/State/ZIP Co de Phone Number [facility] [address] [place] [phone], [facility] [phone] * (ABNORMAL) CALCIUM IONIZED WHOLE BLOOD (08/29/2020 4:08 AM BUHR MILL OPERATOR) Ionized Calcium Whole Blood 1.05 mmol/L 08/29/2020 4:58 AM [facility] Adjusted Ionized Calcium 1.07(L) 1.19 - 1.34 mmol/L 08/29/2020 4:58 AM [facility] pH Whole Blood 7.44 7.35 - 7.45 08/29/2020 4:58 AM [facility] Blood WHOLE BLOOD SPECIMEN / Unknown Lab Venipuncture / Unknown 08/29/2020 4:08 AM BUHR MILL OPERATOR 08/29/2020 4:57 AM BUHR MILL OPERATOR Dionte Comer MD LAB - CHEMISTRY [facility] [address] [address], [facility] [phone] * (ABNORMAL) PHOSPHORUS BLOOD (08/29/2020 4:08 AM BUHR MILL OPERATOR) Phosphorus 4.9(H) 2.3 - 4.7 mg/dL 08/29/2020 5:28 [address] [facility] Blood BLOOD SPECIMEN / Unknown Lab Venipuncture / Unknown 08/29/2020 4:08 AM BUHR MILL OPERATOR 08/29/2020 5:00 AM BUHR MILL OPERATOR Dionte Comer MD LAB - CHEMISTRY [facility] Performing Organization Address City/[facility]/ZIP Co de Phone Number [address] [address], [facility] [phone] * MAGNESIUM BLOOD (08/29/2020 4:08 AM BUHR MILL OPERATOR) Magnesium 2.3 1.6 - 2.6 mg/dL 08/29/2020 5:28 [address] [facility] Blood BLOOD SPECIMEN / Unknown Lab Venipuncture / Unknown 08/29/2020 4:08 AM BUHR MILL OPERATOR 08/29/2020 5:00 AM BUHR MILL OPERATOR Dionte Comer MD LAB - CHEMISTRY [facility] [address] [address], [facility] [phone] * (ABNORMAL) CBC W/O DIFFERENTIAL (08/29/2020 4:08 AM BUHR MILL OPERATOR) WBC 11.2(H) 3.5 - 10.5 10? 3 [...] Lab Venipuncture / Unknown 08/29/2020 4:08 AM BUHR MILL OPERATOR 08/29/2020 5:00 AM BUHR MILL OPERATOR Dointe Comer MD LAB - HEMATOLOGY ORD ERABLES Performing Organization Address City/State/[facility] Co de Phone Number [address] [address], [facility] [phone] * (ABNORMAL) ALBUMIN BLOOD (08/29/2020 4:08 AM BUHR MILL OPERATOR) Albumin 2.9(L) 3.4 - 5.0 g/dL 08/29/2020 5:28 AM [facility] Blood BLOOD SPECIMEN / Unknown Lab Venipuncture / Unknown 08/29/2020 4:08 AM BUHR MILL OPERATOR 08/29/2020 5:00 AM BUHR MILL OPERATOR Dionte Comer MD LAB - CHEMISTRY [facility] [address] [place] [address], [facility] [phone] * (ABNORMAL) BASIC METABOLIC PANEL (CALCIUM TOTAL) (08/29/2020 4:08 AM BUHR MILL OPERATOR) BUN 11 7 - 26 mg/dL 08/29/2020 5:28 AM [facility] Creatinine 0.7 0.6 - 1.2 mg/dL 08/29/2020 5:28 AM [facility] Sodium 142 136 - 145 mmol/L 08/29/2020 5:28 AM [facility] Potassium 3.9 3.5 - 4.5 mmol/L 08/29/2020 5:28 AM [facility] Chloride 103 98 - 107 mmol/L 08/29/2020 5:28 AM [facility] CO2 27 22 - 29 mmol/L 08/29/2020 5:28 AM [facility] Glucose 101 70 - 115 mg/dL 08/29/2020 5:28 AM [facility] Calcium 8.0(L) 8.4 - 10.2 mg/dL 08/29/2020 5:28 AM [facility] Anion Gap 16 8 - 18 08/29/2020 5:28 AM [facility] BUN/Creatinine Ratio 16 7 - 23 08/29/2020 5:28 AM [facility] Osmolality Calculated 294 270 - 300 mOsm/kg 08/29/2020 5:28 AM [facility] eGFR >60 >60 mL/min/1.7 3 m2 08/29/2020 5:28 AM [facility] Blood BLOOD SPECIMEN / Unknown Lab Venipuncture / Unknown 08/29/2020 4:08 AM BUHR MILL OPERATOR 08/29/2020 5:00 AM BUHR MILL OPERATOR Dionte Comer MD LAB - CHEMISTRY [facility] [address] [place] [address], [place] [phone] * PTH INTACT W/O CALCIUM (08/29/2020 4:08 AM BUHR MILL OPERATOR) PTH Intact 10.1 8.0 - 77.0 pg/mL 08/29/2020 5:33 AM [facility] Blood BLOOD SPECIMEN / Unknown Lab Venipuncture / Unknown 08/29/2020 4:08 AM BUHR MILL OPERATOR 08/29/2020 5:00 AM BUHR MILL OPERATOR Dionte Comer MD LAB - CHEMISTRY [facility] [address] [address], [facility] [phone] * (ABNORMAL) CALCIUM IONIZED WHOLE BLOOD (08/28/2020 9:42 PM BUHR MILL OPERATOR) Ionized Calcium Whole Blood 1.09 mmol/L 08/28/2020 9:47 PM [facility] Adjusted Ionized Calcium 1.11(L) 1.19 - 1.34 mmol/L 08/28/2020 9:47 PM [facility] pH Whole Blood 7.43 7.35 - 7.45 08/28/2020 9:47 PM [facility] Blood WHOLE BLOOD SPECIMEN / Unknown Lab Venipuncture / Unknown 08/28/2020 9:42 PM BUHR MILL OPERATOR 08/28/2020 9:45 PM BUHR MILL OPERATOR Dionte Comer MD LAB - CHEMISTRY [facility] [address] [address], [facility] [phone] * (ABNORMAL) CALCIUM IONIZED WHOLE BLOOD (08/28/2020 4:05 PM BUHR MILL OPERATOR) Ionized Calcium Whole Blood 1.02 mmol/L 08/28/2020 4:11 PM [facility] Adjusted Ionized Calcium 1.03(L) 1.19 - 1.34 mmol/L 08/28/2020 4:11 PM [facility] pH Whole Blood 7.42 7.35 - 7.45 08/28/2020 4:11 [address] [facility] Blood WHOLE BLOOD SPECIMEN / Unknown Lab Venipuncture / Unknown 08/28/2020 4:05 PM BUHR MILL OPERATOR 08/28/2020 4:09 PM BUHR MILL OPERATOR Dionte Comer MD LAB - CHEMISTRY [facility] [address] [address], [facility] [phone] * (ABNORMAL) CALCIUM IONIZED WHOLE BLOOD (08/28/2020 11:54 AM BUHR MILL OPERATOR) Ionized Calcium Whole Blood 1.04 mmol/L 08/28/2020 12:12 [address] [facility] Adjusted Ionized Calcium 1.05(L) 1.19 - 1.34 mmol/L 08/28/2020 12:12 [address] [facility] pH Whole Blood 7.41 7.35 - 7.45 08/28/2020 12:12 PM [address] M[address] [facility] Blood WHOLE BLOOD SPECIMEN / Unknown Lab Venipuncture / Unknown 08/28/2020 11:54 AM BUHR MILL OPERATOR 08/28/2020 12:04 PM BUHR MILL OPERATOR Dionte Comer MD LAB - CHEMISTRY [facility] [address] [address], [place] [phone] * (ABNORMAL) PHOSPHORUS BLOOD (08/28/2020 5:49 AM BUHR MILL OPERATOR) Phosphorus 5.5(H) 2.3 - 4.7 mg/dL 08/28/2020 6:37 AM [address] [address] [facility] Blood BLOOD SPECIMEN / Unknown Lab Venipuncture / Unknown 08/28/2020 5:49 AM BUHR MILL OPERATOR 08/28/2020 6:04 AM BUHR MILL OPERATOR Dionte Comer MD LAB - CHEMISTRY [facility] [address] [address], [place] [phone] * MAGNESIUM BLOOD (08/28/2020 5:49 AM BUHR MILL OPERATOR) Pathologist [facility] Magnesium 2.2 1.6 - 2.6 mg/dL 08/28/2020 6:37 AM [facility] Blood BLOOD SPECIMEN / Unknown Lab Venipuncture / Unknown 08/28/2020 5:49 AM BUHR MILL OPERATOR 08/28/2020 6:04 AM BUHR MILL OPERATOR Dionte Comer MD LAB - CHEMISTRY [facility] [address] [place] [address], [facility] [phone] * (ABNORMAL) CBC W/O DIFFERENTIAL (08/28/2020 5:49 AM BUHR MILL OPERATOR) WBC 11.1(H) 3.5 - 10.5 10? 3 /uL 08/28/2020 6:28 AM [facility] RBC 3.99 3.90 - 5.00 10? 6 /uL 08/28/2020 6:28 AM [facility] Hemoglobin 11.6(L) 12.0 - 15.5 g/dL 08/28/2020 6:28 AM [facility] Hematocrit 35.4 35.0 - 45.0 % 08/28/2020 6:28 AM [facility] MCV 88.7 81.0 - 97.0 fL 08/28/2020 6:28 AM [facility] MCH 29.1 28.0 - 34.0 pg 08/28/2020 6:28 AM [facility] MCHC 32.8 32.0 - 36.0 g/dL 08/28/2020 6:28 AM [facility] Platelet Count 332 150 - 400 10? 3 /uL 08/28/2020 6:28 AM [facility] RDW-SD 39.4 36.0 - 50.0 fL 08/28/2020 6:28 AM [facility] RDW-CV 12.2 11.2 - 14.8 % 08/28/2020 6:28 AM [facility] MPV 9.8 9.3 - 12.8 fL 08/28/2020 6:28 AM [facility] nRBC Absolute 0.00 0 10? 3 /uL 08/28/2020 6:28 AM [facility] nRBC Auto 0.0 0 /100 WBC 08/28/2020 6:28 AM [facility] Blood BLOOD SPECIMEN / Unknown Lab Venipuncture / Unknown 08/28/2020 5:49 AM [facility] 08/28/2020 6:03 AM [facility] Dionte Comer MD LAB - HEMATOLOGY ORD ERABLES [address] [address], [facility] [phone] * (ABNORMAL) ALBUMIN BLOOD (08/28/2020 5:49 AM [facility]) Albumin 2.9(L) 3.4 - 5.0 g/dL 08/28/2020 6:37 AM [facility] Blood BLOOD SPECIMEN / Unknown Lab Venipuncture / Unknown 08/28/2020 5:49 AM [facility] 08/28/2020 6:04 AM [facility] Dionte Comer MD LAB - CHEMISTRY ORDE RABHORTENCIA [address] [address], [facility] [phone] * (ABNORMAL) BASIC METABOLIC PANEL (CALCIUM TOTAL) (08/28/2020 5:49 AM [facility]) BUN 12 7 - 26 mg/dL 08/28/2020 6:37 AM [facility] Creatinine 0.7 0.6 - 1.2 mg/dL 08/28/2020 6:37 AM [facility] Sodium 142 136 - 145 mmol/L 08/28/2020 6:37 AM [facility] Potassium 3.9 3.5 - 4.5 mmol/L 08/28/2020 6:37 AM [facility] Chloride 103 98 - 107 mmol/L 08/28/2020 6:37 AM [facility] CO2 29 22 - 29 mmol/L 08/28/2020 6:37 AM [facility] Glucose 101 70 - 115 mg/dL 08/28/2020 6:37 AM [facility] Calcium 7.3(L) 8.4 - 10.2 mg/dL 08/28/2020 6:37 AM [facility] Anion Gap 14 8 - 18 08/28/2020 6:37 AM [facility] BUN/Creatinine Ratio 17 7 - 23 08/28/2020 6:37 AM [facility] Osmolality Calculated 294 270 - 300 mOsm/kg 08/28/2020 6:37 AM [facility] eGFR >60 >60 mL/min/1.7 3 m2 08/28/2020 6:37 AM [facility] Blood BLOOD SPECIMEN / Unknown Lab Venipuncture / Unknown 08/28/2020 5:49 AM [facility] 08/28/2020 6:04 AM [facility] Dionte Comer MD LAB - CHEMISTRY ORDSrinivas WEAVER [address] [address], [facility] [phone] * PTH INTACT W/O CALCIUM (08/28/2020 5:49 AM BUHR MILL OPERATOR) PTH Intact 10.7 8.0 - 77.0 pg/mL 08/28/2020 7:17 AM [facility] Blood BLOOD SPECIMEN / Unknown Lab Venipuncture / Unknown 08/28/2020 5:49 AM BUHR MILL OPERATOR 08/28/2020 6:46 AM BUHR MILL OPERATOR Dionte Comer MD LAB - CHEMISTRY ASH WEAVER [address] [address], [facility] [phone] * (ABNORMAL) CALCIUM IONIZED WHOLE BLOOD (08/28/2020 5:49 AM BUHR MILL OPERATOR) Ionized Calcium Whole Blood 1.04 mmol/L 08/28/2020 6:03 AM [facility] Adjusted Ionized Calcium 1.04(L) 1.19 - 1.34 mmol/L 08/28/2020 6:03 AM [facility] pH Whole Blood 7.40 7.35 - 7.45 08/28/2020 6:03 AM [facility] Blood WHOLE BLOOD SPECIMEN / Unknown Lab Venipuncture / Unknown 08/28/2020 5:49 AM BUHR MILL OPERATOR 08/28/2020 6:01 AM BUHR MILL OPERATOR Dionte Comer MD LAB - CHEMISTRY ASH WEAVER [address] [address], [place] [phone] * (ABNORMAL) CALCIUM IONIZED WHOLE BLOOD (08/27/2020 4:53 PM BUHR MILL OPERATOR) Ionized Calcium Whole Blood 1.05 mmol/L 08/27/2020 4:59 PM [facility] Adjusted Ionized Calcium 1.06(L) 1.19 - 1.34 mmol/L 08/27/2020 4:59 PM [facility] pH Whole Blood 7.41 7.35 - 7.45 08/27/2020 4:59 PM [facility] Blood WHOLE BLOOD SPECIMEN / Unknown Lab Venipuncture / Unknown 08/27/2020 4:53 PM BUHR MILL OPERATOR 08/27/2020 4:57 PM BUHR MILL OPERATOR Dionte Comer MD LAB - CHEMISTRY ASH WEAVER [address] [address], [place] [phone] * (ABNORMAL) GLUCOSE - POINT OF CARE (08/27/2020 4:27 PM BUHR MILL OPERATOR) Glucose WB/POC 157(H) 70 - 115 mg/dL 08/27/2020 4:32 PM [facility] Specimen Type Arterial/C apillary 08/27/2020 4:32 PM [facility] Blood BLOOD SPECIMEN / Unknown 08/27/2020 4:27 PM BUHR MILL OPERATOR 08/27/2020 4:32 PM BUHR MILL OPERATOR Dionte Comer MD LAB - POINT OF CARE ORDERABLES [address] [address], [place] [phone] * (ABNORMAL) CALCIUM IONIZED WHOLE BLOOD (08/27/2020 11:41 AM BUHR MILL OPERATOR) [facility] Ionized Calcium Whole Blood 1.03 mmol/L 08/27/2020 11:[address] [address] [facility] Adjusted Ionized Calcium 1.03(L) 1.19 - 1.34 mmol/L 08/27/2020 11:[address] [facility] pH Whole Blood 7.40 7.35 - 7.45 08/27/2020 11:53 [address] [facility] [address] [address] [facility] Blood WHOLE BLOOD SPECIMEN / Unknown Lab Venipuncture / Unknown 08/27/2020 11:41 AM BUHR MILL OPERATOR 08/27/2020 11:48 AM BUHR MILL OPERATOR Dionte Comer MD LAB - CHEMISTRY ASH WEAVER [address] [address], [place] [phone] * (ABNORMAL) PHOSPHORUS BLOOD (08/27/2020 5:48 AM BUHR MILL OPERATOR) [facility] Phosphorus 5.4(H) 2.3 - 4.7 mg/dL 08/27/2020 6:22 [address] [facility] [address] [facility] Blood BLOOD SPECIMEN / Unknown Lab Venipuncture / Unknown 08/27/2020 5:48 AM BUHR MILL OPERATOR 08/27/2020 5:57 AM BUHR MILL OPERATOR Dionte Comer MD LAB - CHEMISTRY ASH WEAVER [address] [address], [place] [phone] * MAGNESIUM BLOOD (08/27/2020 5:48 AM BUHR MILL OPERATOR) Magnesium 2.1 1.6 - 2.6 mg/dL 08/27/2020 6:22 AM [facility] Blood BLOOD SPECIMEN / Unknown Lab Venipuncture / Unknown 08/27/2020 5:48 AM BUHR MILL OPERATOR 08/27/2020 5:57 AM BUHR MILL OPERATOR Dionte Comer MD LAB - CHEMISTRY ASH WEAVER Performing Organization Address City/[facility] Co de Phone Number [address] [address] [phone] * (ABNORMAL) CBC W/O DIFFERENTIAL (08/27/2020 5:48 AM BUHR MILL OPERATOR) Pathologist [facility] WBC 9.5 3.5 - 10.5 10? 3 /uL 08/27/2020 6:18 AM [facility] RBC 3.84(L) 3.90 - 5.00 10? 6 /uL 08/27/2020 6:18 AM [facility] Hemoglobin 11.3(L) 12.0 - 15.5 g/dL 08/27/2020 6:18 AM [facility] Hematocrit 34.4(L) 35.0 - 45.0 % 08/27/2020 6:18 AM [facility] MCV 89.6 81.0 - 97.0 fL 08/27/2020 6:18 AM [facility] MCH 29.4 28.0 - 34.0 pg 08/27/2020 6:18 AM [facility] MCHC 32.8 32.0 - 36.0 g/dL 08/27/2020 6:18 AM [facility] Platelet Count 327 150 - 400 10? 3 /uL 08/27/2020 6:18 AM [facility] RDW-SD 39.7 36.0 - 50.0 fL 08/27/2020 6:18 AM [facility] RDW-CV 12.2 11.2 - 14.8 % 08/27/2020 6:18 AM [facility] MPV 9.6 9.3 - 12.8 fL 08/27/2020 6:18 AM [facility] nRBC Absolute 0.00 0 10? 3 /uL 08/27/2020 6:18 AM [facility] nRBC Auto 0.0 0 /100 WBC 08/27/2020 6:18 AM [facility] Blood BLOOD SPECIMEN / Unknown Lab Venipuncture / Unknown 08/27/2020 5:48 AM BUHR MILL OPERATOR 08/27/2020 5:56 AM BUHR MILL OPERATOR Dionte Comer MD LAB - HEMATOLOGY ORD ERABLES Performing Organization Address City/[facility]/ZIP Co de Phone Number [address] [address], [facility] [phone] * (ABNORMAL) ALBUMIN BLOOD (08/27/2020 5:48 AM BUHR MILL OPERATOR) Albumin 2.8(L) 3.4 - 5.0 g/dL 08/27/2020 6:22 AM [facility] Blood BLOOD SPECIMEN / Unknown Lab Venipuncture / Unknown 08/27/2020 5:48 AM BUHR MILL OPERATOR 08/27/2020 5:57 AM BUHR MILL OPERATOR Dionte Comer MD LAB - CHEMISTRY ORDE OWEN [address] [address], [facility] [phone] * (ABNORMAL) BASIC METABOLIC PANEL (CALCIUM TOTAL) (08/27/2020 5:48 AM BUHR MILL OPERATOR) BUN 9 7 - 26 mg/dL 08/27/2020 6:22 AM [facility] Creatinine 0.6 0.6 - 1.2 mg/dL 08/27/2020 6:22 AM [facility] Sodium 143 136 - 145 mmol/L 08/27/2020 6:22 AM [facility] Potassium 3.7 3.5 - 4.5 mmol/L 08/27/2020 6:22 AM [facility] Chloride 99 98 - 107 mmol/L 08/27/2020 6:22 AM [facility] CO2 32(H) 22 - 29 mmol/L 08/27/2020 6:22 AM [facility] Glucose 109 70 - 115 mg/dL 08/27/2020 6:22 AM [facility] Calcium 7.4(L) 8.4 - 10.2 mg/dL 08/27/2020 6:22 AM [facility] Anion Gap 16 8 - 18 08/27/2020 6:22 AM [facility] BUN/Creatinine Ratio 15 7 - 23 08/27/2020 6:22 AM [facility] Osmolality Calculated 295 270 - 300 mOsm/kg 08/27/2020 6:22 AM [facility] eGFR >60 >60 mL/min/1.7 3 m2 08/27/2020 6:22 AM [facility] Blood BLOOD SPECIMEN / Unknown Lab Venipuncture / Unknown 08/27/2020 5:48 AM BUHR MILL OPERATOR 08/27/2020 5:57 AM BUHR MILL OPERATOR Dionte Comer MD LAB - CHEMISTRY ASH WEAVER [address] [address], [facility] [phone] * PTH INTACT W/O CALCIUM (08/27/2020 5:48 AM BUHR MILL OPERATOR) PTH Intact 8.2 8.0 - 77.0 pg/mL 08/27/2020 6:27 AM [facility] Blood BLOOD SPECIMEN / Unknown Lab Venipuncture / Unknown 08/27/2020 5:48 AM BUHR MILL OPERATOR 08/27/2020 5:56 AM BUHR MILL OPERATOR Dionte Comer MD LAB - CHEMISTRY ASH WEAVER [address] [address], [facility] [phone] * (ABNORMAL) CALCIUM IONIZED WHOLE BLOOD (08/27/2020 5:48 AM BUHR MILL OPERATOR) Ionized Calcium Whole Blood 1.01 mmol/L 08/27/2020 6:12 AM [facility] Adjusted Ionized Calcium 1.02(L) 1.19 - 1.34 mmol/L 08/27/2020 6:12 AM [facility] pH Whole Blood 7.41 7.35 - 7.45 08/27/2020 6:12 AM [facility] Blood WHOLE BLOOD SPECIMEN / Unknown Lab Venipuncture / Unknown 08/27/2020 5:48 AM BUHR MILL OPERATOR 08/27/2020 5:54 AM BUHR MILL OPERATOR Dionte Comer MD LAB - CHEMISTRY ASH WEAVER [address] [address], [facility] [phone] * (ABNORMAL) CALCIUM IONIZED WHOLE BLOOD (08/26/2020 4:20 PM BUHR MILL OPERATOR) Ionized Calcium Whole Blood 1.05 mmol/L 08/26/2020 4:26 PM [facility] Adjusted Ionized Calcium 1.03(L) 1.19 - 1.34 mmol/L 08/26/2020 4:26 PM [facility] pH Whole Blood 7.36 7.35 - 7.45 08/26/2020 4:26 PM [facility] Blood WHOLE BLOOD SPECIMEN / Unknown Lab Venipuncture / Unknown 08/26/2020 4:20 PM BUHR MILL OPERATOR 08/26/2020 4:23 PM BUHR MILL OPERATOR Dionte Comer MD LAB - CHEMISTRY ASH WEAVER [address] [address], [facility] [phone] * (ABNORMAL) CALCIUM IONIZED WHOLE BLOOD (08/26/2020 11:35 AM BUHR MILL OPERATOR) Ionized Calcium Whole Blood 1.01 mmol/L 08/26/2020 11:41 AM [facility] Adjusted Ionized Calcium 0.99(L) 1.19 - 1.34 mmol/L 08/26/2020 11:41 AM [facility] pH Whole Blood 7.36 7.35 - 7.45 08/26/2020 11:41 AM [facility] Blood WHOLE BLOOD SPECIMEN / Unknown Lab Venipuncture / Unknown 08/26/2020 11:35 AM BUHR MILL OPERATOR 08/26/2020 11:39 AM BUHR MILL OPERATOR Dionte Comer MD LAB - CHEMISTRY ASH WEAVER [address] [address], [place] [phone] * (ABNORMAL) CALCIUM IONIZED WHOLE BLOOD (08/26/2020 6:43 AM BUHR MILL OPERATOR) Ionized Calcium Whole Blood 1.00 mmol/L 08/26/2020 6:[address] [address] [address] [facility] Adjusted Ionized Calcium 1.01(L) 1.19 - 1.34 mmol/L 08/26/2020 6:50 AM [facility] pH Whole Blood 7.42 7.35 - 7.45 08/26/2020 6:50 [address] [address] [facility] Blood WHOLE BLOOD SPECIMEN / Unknown Lab Venipuncture / Unknown 08/26/2020 6:43 AM BUHR MILL OPERATOR 08/26/2020 6:48 AM BUHR MILL OPERATOR Dionte Comer MD LAB - CHEMISTRY ASH WEAVER Performing Organization Address City/[facility]/ZIP Co de Phone Number [address] [address], [place] [phone] * (ABNORMAL) PHOSPHORUS BLOOD (08/26/2020 12:41 AM BUHR MILL OPERATOR) Phosphorus 4.8(H) 2.3 - 4.7 mg/dL 08/26/2020 1:[address] [address] [facility] Blood BLOOD SPECIMEN / Unknown Lab Venipuncture / Unknown 08/26/2020 12:41 AM BUHR MILL OPERATOR 08/26/2020 12:47 AM BUHR MILL OPERATOR Dionte Comer MD LAB - CHEMISTRY ASH WEAVER [address] [address], [place] [phone] * MAGNESIUM BLOOD (08/26/2020 12:41 AM BUHR MILL OPERATOR) Magnesium 1.8 1.6 - 2.6 mg/dL 08/26/2020 1:15 AM [facility] Blood BLOOD SPECIMEN / Unknown Lab Venipuncture / Unknown 08/26/2020 12:41 AM BUHR MILL OPERATOR 08/26/2020 12:47 AM BUHR MILL OPERATOR Dionte Comer MD LAB - CHEMISTRY ASH WEAVER [facility] [address] [place] [address], [facility] [phone] * CBC W/O DIFFERENTIAL (08/26/2020 12:41 AM [facility]) WBC 10.2 3.5 - 10.5 10? 3 /uL 08/26/2020 12:54 AM [facility] RBC 4.31 3.90 - 5.00 10? 6 /uL 08/26/2020 12:54 AM [facility] Hemoglobin 12.6 12.0 - 15.5 g/dL 08/26/2020 12:54 AM [facility] Hematocrit 38.4 35.0 - 45.0 % 08/26/2020 12:54 AM [facility] MCV 89.1 81.0 - 97.0 fL 08/26/2020 12:54 AM [facility] MCH 29.2 28.0 - 34.0 pg 08/26/2020 12:54 AM [facility] MCHC 32.8 32.0 - 36.0 g/dL 08/26/2020 12:54 AM [facility] Platelet Count 328 150 - 400 10? 3 /uL 08/26/2020 12:54 AM [facility] RDW-SD 39.5 36.0 - 50.0 fL 08/26/2020 12:54 AM [facility] RDW-CV 12.0 11.2 - 14.8 % 08/26/2020 12:54 AM [facility] MPV 9.4 9.3 - 12.8 fL 08/26/2020 12:54 AM [facility] nRBC Absolute 0.00 0 10? 3 /uL 08/26/2020 12:54 AM [facility] nRBC Auto 0.0 0 /100 WBC 08/26/2020 12:54 AM [facility] Blood BLOOD SPECIMEN / Unknown Lab Venipuncture / Unknown 08/26/2020 12:41 AM BUHR MILL OPERATOR 08/26/2020 12:47 AM BUHR MILL OPERATOR Dionte Comer MD LAB - HEMATOLOGY ORD ERABLES [address] [address], [facility] [phone] * (ABNORMAL) ALBUMIN BLOOD (08/26/2020 12:41 AM BUHR MILL OPERATOR) Albumin 2.8(L) 3.4 - 5.0 g/dL 08/26/2020 1:15 AM [facility] Blood BLOOD SPECIMEN / Unknown Lab Venipuncture / Unknown 08/26/2020 12:41 AM BUHR MILL OPERATOR 08/26/2020 12:47 AM BUHR MILL OPERATOR Dionte Comer MD LAB - CHEMISTRY ORDE OWEN [address] [address], [place] [phone] * (ABNORMAL) BASIC METABOLIC PANEL (CALCIUM TOTAL) (08/26/2020 12:41 AM BUHR MILL OPERATOR) BUN 9 7 - 26 mg/dL 08/26/2020 1:15 AM [facility] Creatinine 0.6 0.6 - 1.2 mg/dL 08/26/2020 1:15 AM [facility] Sodium 144 136 - 145 mmol/L 08/26/2020 1:15 AM [facility] Potassium 3.6 3.5 - 4.5 mmol/L 08/26/2020 1:15 AM [facility] Chloride 99 98 - 107 mmol/L 08/26/2020 1:15 AM [facility] CO2 33(H) 22 - 29 mmol/L 08/26/2020 1:15 AM [facility] Glucose 127(H) 70 - 115 mg/dL 08/26/2020 1:15 AM [facility] Calcium 7.4(L) 8.4 - 10.2 mg/dL 08/26/2020 1:15 AM [facility] Anion Gap 16 8 - 18 08/26/2020 1:15 AM [facility] BUN/Creatinine Ratio 15 7 - 23 08/26/2020 1:15 AM [facility] Osmolality Calculated 298 270 - 300 mOsm/kg 08/26/2020 1:15 AM [facility] eGFR >60 >60 mL/min/1.7 3 m2 08/26/2020 1:15 AM [facility] Blood BLOOD SPECIMEN / Unknown Lab Venipuncture / Unknown 08/26/2020 12:41 AM BUHR MILL OPERATOR 08/26/2020 12:47 AM BUHR MILL OPERATOR Dionte Comer MD LAB - CHEMISTRY ASH WEAVER [address] [address], [facility] [phone] * (ABNORMAL) PTH INTACT W/O CALCIUM (08/26/2020 12:41 AM BUHR MILL OPERATOR) PTH Intact 4.4(L) 8.0 - 77.0 pg/mL 08/26/2020 1:31 AM [facility] Blood BLOOD SPECIMEN / Unknown Lab Venipuncture / Unknown 08/26/2020 12:41 AM BUHR MILL OPERATOR 08/26/2020 12:47 AM BUHR MILL OPERATOR Dionte Comer MD LAB - CHEMISTRY ASH WEAVER [address] [address], [place] [phone] * (ABNORMAL) CALCIUM IONIZED WHOLE BLOOD (08/26/2020 12:41 AM BUHR MILL OPERATOR) Ionized Calcium Whole Blood 1.03 mmol/L 08/26/2020 1:08 AM [facility] Adjusted Ionized Calcium 1.01(L) 1.19 - 1.34 mmol/L 08/26/2020 1:08 AM [facility] pH Whole Blood 7.36 7.35 - 7.45 08/26/2020 1:08 AM [facility] Blood WHOLE BLOOD SPECIMEN / Unknown Lab Venipuncture / Unknown 08/26/2020 12:41 AM BUHR MILL OPERATOR 08/26/2020 12:47 AM BUHR MILL OPERATOR Dionte Comer MD LAB - CHEMISTRY ASH WEAVER [address] [address], [facility] [phone] * (ABNORMAL) CALCIUM IONIZED WHOLE BLOOD (08/25/2020 4:06 PM BUHR MILL OPERATOR) Ionized Calcium Whole Blood 1.01 mmol/L 08/25/2020 4:13 PM [facility] Adjusted Ionized Calcium 1.03(L) 1.19 - 1.34 mmol/L 08/25/2020 4:13 PM [facility] pH Whole Blood 7.43 7.35 - 7.45 08/25/2020 4:13 PM [facility] Blood WHOLE BLOOD SPECIMEN / Unknown Lab Venipuncture / Unknown 08/25/2020 4:06 PM BUHR MILL OPERATOR 08/25/2020 4:10 PM BUHR MILL OPERATOR Dionte Comer MD LAB - CHEMISTRY ASH WEAVER [address] [address], [place] [phone] * CALCIUM URINE RANDOM (08/25/2020 1:12 PM BUHR MILL OPERATOR) Calcium Random Urine 5.5 Not Established mg/dL 08/25/2020 1:41 PM [facility] Urine URINE SPECIMEN OBTAINED BY CLEAN CATCH PROCEDURE / Unknown Collection / Unknown 08/25/2020 1:12 PM BUHR MILL OPERATOR 08/25/2020 1:32 PM BUHR MILL OPERATOR Dionte Comer MD LAB - URINE CHEMISTR Y ORDERABLES [address] [address], [facility] [phone] * (ABNORMAL) CALCIUM IONIZED WHOLE BLOOD (08/25/2020 10:53 AM BUHR MILL OPERATOR) Ionized Calcium Whole Blood 1.05 mmol/L 08/25/2020 11:[address] [facility] Adjusted Ionized Calcium 1.01(L) 1.19 - 1.34 mmol/L 08/25/2020 11:09 AM [facility] pH Whole Blood 7.33(L) 7.35 - 7.45 08/25/2020 11:09 AM [facility] Blood WHOLE BLOOD SPECIMEN / Unknown Lab Venipuncture / Unknown 08/25/2020 10:53 AM BUHR MILL OPERATOR 08/25/2020 11:07 AM BUHR MILL OPERATOR Dionte Comer MD LAB - CHEMISTRY ASH WEAVER Performing Organization Address City/[facility]/ZIP Co de Phone Number [address] [address], [facility] [phone] * (ABNORMAL) CALCIUM IONIZED WHOLE BLOOD (08/25/2020 9:04 AM BUHR MILL OPERATOR) Ionized Calcium Whole Blood 1.00 mmol/L 08/25/2020 9:26 AM [facility] Adjusted Ionized Calcium 1.00(L) 1.19 - 1.34 mmol/L 08/25/2020 9:26 AM [facility] pH Whole Blood 7.40 7.35 - 7.45 08/25/2020 9:26 AM [facility] Blood WHOLE BLOOD SPECIMEN / Unknown Lab Venipuncture / Unknown 08/25/2020 9:04 AM BUHR MILL OPERATOR 08/25/2020 9:24 AM BUHR MILL OPERATOR Dionte Comer MD LAB - CHEMISTRY ASH WEAVER [address] [address], [facility] [phone] * (ABNORMAL) PHOSPHORUS BLOOD (08/25/2020 4:16 AM BUHR MILL OPERATOR) Pathologist [facility] Phosphorus 6.0(H) 2.3 - 4.7 mg/dL 08/25/2020 5:09 AM [facility] Blood BLOOD SPECIMEN / Unknown Venipuncture / Unknown 08/25/2020 4:16 AM BUHR MILL OPERATOR 08/25/2020 4:42 AM BUHR MILL OPERATOR Dionte Comer MD LAB - CHEMISTRY ASH WEAVER [address] [address], [facility] [phone] * MAGNESIUM BLOOD (08/25/2020 4:16 AM BUHR MILL OPERATOR) Pathologist [facility] Magnesium 1.9 1.6 - 2.6 mg/dL 08/25/2020 5:09 AM [facility] Blood BLOOD SPECIMEN / Unknown Venipuncture / Unknown 08/25/2020 4:16 AM BUHR MILL OPERATOR 08/25/2020 4:42 AM BUHR MILL OPERATOR Dionte Comer MD LAB - CHEMISTRY ASH WEAVER [address] [address], [facility] [phone] * CBC W/O DIFFERENTIAL (08/25/2020 4:16 AM BUHR MILL OPERATOR) Pathologist [facility] WBC 9.6 3.5 - 10.5 10? 3 /uL 08/25/2020 4:52 AM [facility] RBC 4.53 3.90 - 5.00 10? 6 /uL 08/25/2020 4:52 AM [facility] Hemoglobin 13.1 12.0 - 15.5 g/dL 08/25/2020 4:52 AM [facility] Hematocrit 40.6 35.0 - 45.0 % 08/25/2020 4:52 AM [facility] MCV 89.6 81.0 - 97.0 fL 08/25/2020 4:52 AM [facility] MCH 28.9 28.0 - 34.0 pg 08/25/2020 4:52 AM [facility] MCHC 32.3 32.0 - 36.0 g/dL 08/25/2020 4:52 AM [facility] Platelet Count 327 150 - 400 10? 3 /uL 08/25/2020 4:52 AM [facility] RDW-SD 40.0 36.0 - 50.0 fL 08/25/2020 4:52 AM [facility] RDW-CV 12.2 11.2 - 14.8 % 08/25/2020 4:52 AM [facility] MPV 10.1 9.3 - 12.8 fL 08/25/2020 4:52 AM [facility] nRBC Absolute 0.00 0 10? 3 /uL 08/25/2020 4:52 AM [facility] nRBC Auto 0.0 0 /100 WBC 08/25/2020 4:52 AM [facility] Blood BLOOD SPECIMEN / Unknown Venipuncture / Unknown 08/25/2020 4:16 AM BUHR MILL OPERATOR 08/25/2020 4:42 AM BUHR MILL OPERATOR Dionte Comer MD LAB - HEMATOLOGY ORD ERABLES [address] [address], [facility] [phone] * (ABNORMAL) ALBUMIN BLOOD (08/25/2020 4:16 AM BUHR MILL OPERATOR) Albumin 2.8(L) 3.4 - 5.0 g/dL 08/25/2020 5:09 AM [facility] Blood BLOOD SPECIMEN / Unknown Venipuncture / Unknown 08/25/2020 4:16 AM BUHR MILL OPERATOR 08/25/2020 4:42 AM BUHR MILL OPERATOR Dionte Comer MD LAB - CHEMISTRY ORDE RABHORTENCIA [address] [address], [place] [phone] * (ABNORMAL) BASIC METABOLIC PANEL (CALCIUM TOTAL) (08/25/2020 4:16 AM [facility]) Pathologist [facility] BUN 13 7 - 26 mg/dL 08/25/2020 5:09 AM [facility] Creatinine 0.7 0.6 - 1.2 mg/dL 08/25/2020 5:09 AM [facility] Sodium 141 136 - 145 mmol/L 08/25/2020 5:09 AM [facility] Potassium 3.6 3.5 - 4.5 mmol/L 08/25/2020 5:09 AM [facility] Chloride 97(L) 98 - 107 mmol/L 08/25/2020 5:09 AM [facility] CO2 32(H) 22 - 29 mmol/L 08/25/2020 5:09 AM [facility] Glucose 116(H) 70 - 115 mg/dL 08/25/2020 5:09 AM [facility] Calcium 7.9(L) 8.4 - 10.2 mg/dL 08/25/2020 5:09 AM [facility] Anion Gap 16 8 - 18 08/25/2020 5:09 AM [facility] BUN/Creatinine Ratio 19 7 - 23 08/25/2020 5:09 AM [facility] Osmolality Calculated 293 270 - 300 mOsm/kg 08/25/2020 5:09 AM [facility] eGFR >60 >60 mL/min/1.7 3 m2 08/25/2020 5:09 AM [facility] Blood BLOOD SPECIMEN / Unknown Venipuncture / Unknown 08/25/2020 4:16 AM [facility] 08/25/2020 4:42 AM [facility] Dionte Comer MD LAB - CHEMISTRY [facility] Organization Address City/State/ZIP Co de Phone Number [address] [address], [facility] [phone] * (ABNORMAL) PTH INTACT W/O CALCIUM (08/25/2020 4:16 AM [facility]) Pathologist [facility] PTH Intact <4.0(L) 8.0 - 77.0 pg/mL 08/25/2020 5:11 AM [facility] Blood BLOOD SPECIMEN / Unknown Venipuncture / Unknown 08/25/2020 4:16 AM [facility] 08/25/2020 4:42 AM [facility] Dionte Comer MD LAB - CHEMISTRY [facility] [address] [address], [facility] [phone] * (ABNORMAL) CALCIUM IONIZED WHOLE BLOOD (08/25/2020 4:16 AM [facility]) Ionized Calcium Whole Blood 1.04 mmol/L 08/25/2020 4:43 AM [facility] Adjusted Ionized Calcium 1.01(L) 1.19 - 1.34 mmol/L 08/25/2020 4:43 AM [facility] pH Whole Blood 7.35 7.35 - 7.45 08/25/2020 4:43 AM [facility] Blood WHOLE BLOOD SPECIMEN / Unknown Venipuncture / Unknown 08/25/2020 4:16 AM [facility] 08/25/2020 4:39 AM [facility] Dionte Comer MD LAB - CHEMISTRY [facility] [address] [address], [facility] [phone] * (ABNORMAL) CALCIUM IONIZED WHOLE BLOOD (08/24/2020 4:50 PM [facility]) Ionized Calcium Whole Blood 1.03 mmol/L 08/24/2020 5:[address] [address] [address] [facility] Adjusted Ionized Calcium 1.05(L) 1.19 - 1.34 mmol/L 08/24/2020 5:01 PM [facility] pH Whole Blood 7.43 7.35 - 7.45 08/24/2020 5:01 PM [facility] Blood WHOLE BLOOD SPECIMEN / Unknown Venipuncture / Unknown 08/24/2020 4:50 PM [facility] 08/24/2020 4:59 PM [facility] Dionte Comer MD LAB - CHEMISTRY [facility] [address] [address], [facility] [phone] * (ABNORMAL) CALCIUM IONIZED WHOLE BLOOD (08/24/2020 10:42 AM [facility]) Ionized Calcium Whole Blood 1.04 mmol/L 08/24/2020 10:[address] [facility] [address] [facility] Adjusted Ionized Calcium 1.01(L) 1.19 - 1.34 mmol/L 08/24/2020 10:49 AM [facility] [facility] pH Whole Blood 7.35 7.35 - 7.45 08/24/2020 10:49 AM [facility] Blood WHOLE BLOOD SPECIMEN / Unknown Venipuncture / Unknown 08/24/2020 10:42 AM BUHR MILL OPERATOR 08/24/2020 10:47 AM BU[facility] MILL OPERATOR Dionte Comer MD LAB - CHEMISTRY ASH WEAVER Performing Organization Address [facility]/ZIP Co de Phone Number [address] [address], [facility] [phone] * (ABNORMAL) CALCIUM IONIZED WHOLE BLOOD (08/24/2020 4:17 AM BUHR MILL OPERATOR) Ionized Calcium Whole Blood 1.10 mmol/L 08/24/2020 4:[address] [facility] [address] [facility] Adjusted Ionized Calcium 1.08(L) 1.19 - 1.34 mmol/L 08/24/2020 4:35 AM [facility] pH Whole Blood 7.36 7.35 - 7.45 08/24/2020 4:35 AM [facility] Blood WHOLE BLOOD SPECIMEN / Unknown Venipuncture / Unknown 08/24/2020 4:17 AM BU[facility] MILL OPERATOR 08/24/2020 4:33 AM [facility] M[facility] OPERATOR Dionte Comer MD LAB - CHEMISTRY ASH WEAVER [address] [address], [place] [phone] * CALCIUM URINE RANDOM (08/24/2020 2:48 AM BUHR MILL OPERATOR) Calcium Random Urine 13.6 Not Established mg/dL 08/24/2020 3:17 [address] [facility] [address] [facility] Urine URINE SPECIMEN OBTAINED BY CLEAN CATCH PROCEDURE / Unknown Collection / Unknown 08/24/2020 2:48 AM BUHR MILL OPERATOR 08/24/2020 3:09 AM BU[facility] MILL OPERATOR Dionte Comer MD LAB - URINE CHEMISTR Y ORDERABLES Performing Organization Address City/[facility]/ZIP Co de Phone Number [address] [address], [place] [phone] * (ABNORMAL) ALBUMIN BLOOD (08/24/2020 12:05 AM BUHR MILL OPERATOR) Albumin 2.9(L) 3.4 - 5.0 g/dL 08/24/2020 12:[address] [facility] [address] [address] [facility] Blood BLOOD SPECIMEN / Unknown Venipuncture / Unknown 08/24/2020 12:05 AM BUHR MILL OPERATOR 08/24/2020 12:29 AM BU[facility] MILL OPERATOR Dionte Comer MD LAB - CHEMISTRY ASH WEAVER Performing Organization Address City/[facility]/ZIP Co de Phone Number [address] [address], [place] [phone] * (ABNORMAL) PTH INTACT W/O CALCIUM (08/24/2020 12:05 AM BUHR MILL OPERATOR) PTH Intact <4.0(L) 8.0 - 77.0 pg/mL 08/24/2020 1:[address] [address] [address] [facility] Blood BLOOD SPECIMEN / Unknown Venipuncture / Unknown 08/24/2020 12:05 AM BUHR MILL OPERATOR 08/24/2020 12:29 AM BU[facility] MILL OPERATOR Dionte Comer MD LAB - CHEMISTRY ASH WEAVER [address] [place] [address], [place] [phone] * (ABNORMAL) PHOSPHORUS BLOOD (08/24/2020 12:05 AM BUHR MILL OPERATOR) Phosphorus 6.0(H) 2.3 - 4.7 mg/dL 08/24/2020 12:55 AM [facility] Blood BLOOD SPECIMEN / Unknown Venipuncture / Unknown 08/24/2020 12:05 AM BUHR MILL OPERATOR 08/24/2020 12:29 AM BUHR MILL OPERATOR Dionte Comer MD LAB - CHEMISTRY ASH WEAVER [facility] Organization Address City/State/ZIP Co de Phone Number [facility] [address] [place] [address], [facility] [phone] * (ABNORMAL) CBC W/O DIFFERENTIAL (08/24/2020 12:05 AM BUHR MILL OPERATOR) WBC 11.6(H) 3.5 - 10.5 10? 3 /uL 08/24/2020 12:58 AM [facility] RBC 4.28 3.90 - 5.00 10? 6 /uL 08/24/2020 12:58 AM [facility] Hemoglobin 12.5 12.0 - 15.5 g/dL 08/24/2020 12:58 AM [facility] Hematocrit 37.8 35.0 - 45.0 % 08/24/2020 12:58 AM [facility] MCV 88.3 81.0 - 97.0 fL 08/24/2020 12:58 AM [facility] MCH 29.2 28.0 - 34.0 pg 08/24/2020 12:58 AM [facility] MCHC 33.1 32.0 - 36.0 g/dL 08/24/2020 12:58 AM [facility] Platelet Count 282 150 - 400 10? 3 /uL 08/24/2020 12:58 AM [facility] RDW-SD 39.6 36.0 - 50.0 fL 08/24/2020 12:58 AM [facility] RDW-CV 12.3 11.2 - 14.8 % 08/24/2020 12:58 AM [facility] MPV 10.1 9.3 - 12.8 fL 08/24/2020 12:58 AM [facility] nRBC Absolute 0.00 0 10? 3 /uL 08/24/2020 12:58 AM [facility] nRBC Auto 0.0 0 /100 WBC 08/24/2020 12:58 AM [facility] Blood BLOOD SPECIMEN / Unknown Venipuncture / Unknown 08/24/2020 12:05 AM [facility] 08/24/2020 12:25 AM [facility] Dionte Comer MD LAB - HEMATOLOGY ORD ERABLES [address] [address], [facility] [phone] * (ABNORMAL) BASIC METABOLIC PANEL (CALCIUM TOTAL) (08/24/2020 12:05 AM [facility]) BUN 8 7 - 26 mg/dL 08/24/2020 12:55 AM [facility] Creatinine 0.5(L) 0.6 - 1.2 mg/dL 08/24/2020 12:55 AM [facility] Sodium 142 136 - 145 mmol/L 08/24/2020 12:55 AM [facility] Potassium 3.3(L) 3.5 - 4.5 mmol/L 08/24/2020 12:55 AM [facility] Chloride 96(L) 98 - 107 mmol/L 08/24/2020 12:55 AM [facility] CO2 34(H) 22 - 29 mmol/L 08/24/2020 12:55 AM [facility] Glucose 112 70 - 115 mg/dL 08/24/2020 12:55 AM [facility] Calcium 8.3(L) 8.4 - 10.2 mg/dL 08/24/2020 12:55 AM [facility] Anion Gap 15 8 - 18 08/24/2020 12:55 AM [facility] BUN/Creatinine Ratio 16 7 - 23 08/24/2020 12:55 AM [facility] Osmolality Calculated 293 270 - 300 mOsm/kg 08/24/2020 12:55 AM [facility] eGFR >60 >60 mL/min/1.7 3 m2 08/24/2020 12:55 AM [facility] Blood BLOOD SPECIMEN / Unknown Venipuncture / Unknown 08/24/2020 12:05 AM BU[facility] MILL OPERATOR 08/24/2020 12:29 AM [facility] M[facility] OPERATOR Dionte Comer MD LAB - CHEMISTRY ASH WEAVER [address] [address], [facility] [phone] * (ABNORMAL) CALCIUM IONIZED WHOLE BLOOD (08/24/2020 12:05 AM BUHR MILL OPERATOR) Ionized Calcium Whole Blood 1.11 mmol/L 08/24/2020 12:28 AM [facility] Adjusted Ionized Calcium 1.09(L) 1.19 - 1.34 mmol/L 08/24/2020 12:28 AM [facility] pH Whole Blood 7.36 7.35 - 7.45 08/24/2020 12:28 AM [facility] Blood WHOLE BLOOD SPECIMEN / Unknown Venipuncture / Unknown 08/24/2020 12:05 AM BU[facility] MILL OPERATOR 08/24/2020 12:25 AM [facility] M[facility] OPERATOR Dionte Comer MD LAB - CHEMISTRY ASH WEAVER Performing Organization Address City/[facility]/ZIP Co de Phone Number [address] [address], [facility] [phone] * (ABNORMAL) CALCIUM IONIZED WHOLE BLOOD (08/23/2020 5:31 PM BUHR MILL OPERATOR) Ionized Calcium Whole Blood 1.95 mmol/L 08/23/2020 5:40 PM [facility] Adjusted Ionized Calcium 1.94(H) 1.19 - 1.34 mmol/L 08/23/2020 5:40 PM [facility] pH Whole Blood 7.39 7.35 - 7.45 08/23/2020 5:40 PM [facility] Blood WHOLE BLOOD SPECIMEN / Unknown Venipuncture / Unknown 08/23/2020 5:31 PM BUHR MILL OPERATOR 08/23/2020 5:38 PM BU[facility] MILL OPERATOR Dionte Comer MD LAB - CHEMISTRY ASH WEAVER [address] [address], [facility] [phone] * MAGNESIUM BLOOD (08/23/2020 10:49 AM BUHR MILL OPERATOR) Magnesium 1.8 1.6 - 2.6 mg/dL 08/23/2020 11:[address] [facility] Blood BLOOD SPECIMEN / Unknown Venipuncture / Unknown 08/23/2020 10:49 AM BUHR MILL OPERATOR 08/23/2020 11:00 AM BUHR MILL OPERATOR Dionte Comer MD LAB - CHEMISTRY ASH WEAVER Performing Organization Address [facility]/ZIP Co de Phone Number [address] [address], [place] [phone] * (ABNORMAL) CALCIUM IONIZED WHOLE BLOOD (08/23/2020 10:49 AM BUHR MILL OPERATOR) Ionized Calcium Whole Blood 0.97 mmol/L 08/23/2020 10:[address] [address] [address] [facility] Adjusted Ionized Calcium 0.95(L) 1.19 - 1.34 mmol/L 08/23/2020 10:[address] [address] [facility] pH Whole Blood 7.36 7.35 - 7.45 08/23/2020 10:59 [address] [facility] [address] [facility] Blood WHOLE BLOOD SPECIMEN / Unknown Venipuncture / Unknown 08/23/2020 10:49 AM BUHR MILL OPERATOR 08/23/2020 10:57 AM BUHR MILL OPERATOR Dionte Comer MD LAB - CHEMISTRY ASH WEAVER [address] [address], [place] [phone] * CALCIUM URINE RANDOM (08/23/2020 5:04 AM BUHR MILL OPERATOR) Calcium Random Urine 8.3 Not Established mg/dL 08/23/2020 5:29 AM [facility] Urine URINE SPECIMEN OBTAINED BY CLEAN CATCH PROCEDURE / Unknown Collection / Unknown 08/23/2020 5:04 AM BUHR MILL OPERATOR 08/23/2020 5:20 AM BUHR MILL OPERATOR Dionte Comer MD LAB - URINE CHEMISTR Y ORDERABLES Performing Organization Address City/State/[facility] Co de Phone Number [facility] [address] [place] [address], [facility] [phone] * (ABNORMAL) BASIC METABOLIC PANEL (CALCIUM TOTAL) (08/23/2020 4:28 AM [facility]) [facility] BUN 7 7 - 26 mg/dL 08/23/2020 10:07 AM [facility] Creatinine 0.5(L) 0.6 - 1.2 mg/dL 08/23/2020 10:07 AM [facility] Sodium 142 136 - 145 mmol/L 08/23/2020 10:07 AM [facility] Potassium 3.5 3.5 - 4.5 mmol/L 08/23/2020 10:07 AM [facility] Chloride 98 98 - 107 mmol/L 08/23/2020 10:07 AM [facility] CO2 32(H) 22 - 29 mmol/L 08/23/2020 10:07 AM [facility] Glucose 99 70 - 115 mg/dL 08/23/2020 10:07 AM [facility] Calcium 7.3(L) 8.4 - 10.2 mg/dL 08/23/2020 10:07 AM [facility] Anion Gap 16 8 - 18 08/23/2020 10:07 AM [facility] BUN/Creatinine Ratio 14 7 - 23 08/23/2020 10:07 AM [facility] Osmolality Calculated 292 270 - 300 mOsm/kg 08/23/2020 10:07 AM [facility] eGFR >60 >60 mL/min/1.7 3 m2 08/23/2020 10:07 AM [facility] Blood BLOOD SPECIMEN / Unknown Venipuncture / Unknown 08/23/2020 4:28 AM BUHR MILL OPERATOR 08/23/2020 4:35 AM BUHR MILL OPERATOR Dionte Comer MD LAB - CHEMISTRY ASH WEAVER [facility] [address] [place] [address], [place] [phone] * (ABNORMAL) CALCIUM IONIZED WHOLE BLOOD (08/23/2020 4:28 AM BUHR MILL OPERATOR) Ionized Calcium Whole Blood 1.01 mmol/L 08/23/2020 4:36 [address] [facility] [address] [facility] Adjusted Ionized Calcium 0.98(L) 1.19 - 1.34 mmol/L 08/23/2020 4:36 AM [facility] [address] [facility] pH Whole Blood 7.35 7.35 - 7.45 08/23/2020 4:36 AM [facility] Blood WHOLE BLOOD SPECIMEN / Unknown Venipuncture / Unknown 08/23/2020 4:28 AM BUHR MILL OPERATOR 08/23/2020 4:32 AM BUHR MILL OPERATOR Dionte Comer MD LAB - CHEMISTRY ASH WEAVER Performing Organization Address City/[facility]/ZIP Co de Phone Number [address] [address], [place] [phone] * (ABNORMAL) ALBUMIN BLOOD (08/23/2020 4:28 AM BUHR MILL OPERATOR) Albumin 2.8(L) 3.4 - 5.0 g/dL 08/23/2020 4:54 AM [facility] [address] [facility] Blood BLOOD SPECIMEN / Unknown Venipuncture / Unknown 08/23/2020 4:28 AM BUHR MILL OPERATOR 08/23/2020 4:35 AM BU[facility] MILL OPERATOR Dionte Comer MD LAB - CHEMISTRY ASH WEAVER [address] [address], [place] [phone] * (ABNORMAL) PTH INTACT W/O CALCIUM (08/23/2020 4:28 AM BUHR MILL OPERATOR) [facility] PTH Intact <4.0(L) 8.0 - 77.0 pg/mL 08/23/2020 5:11 AM BUHR MILL OPERATOR [facility] Blood BLOOD SPECIMEN / Unknown Venipuncture / Unknown 08/23/2020 4:28 AM BUHR MILL OPERATOR 08/23/2020 4:35 AM BUHR MILL OPERATOR Dionte Comer MD LAB - CHEMISTRY ASH WEAVER [facility] [address] [place] [address], [facility] [phone] * PREPARE (CROSSMATCH) RBC UNIT(S), 2 Units (08/23/2020 2:17 AM BUHR MILL OPERATOR) [facility] Unit Description AS1 LR PRBC [facility] BLO[facility] Unit ABO B [facility] Unit Rh POS [facility] B[facility]OD [facility] Product Number R02 [facility] B LOOD BANK LAB Unit Donor # [id number] [facility] BLOOD [facility] Unit Status released [facility] BLOO D BANK LAB Product Code [id number] [facility] BLO OD BANK LAB Blood Type Barcode 7300 [facility] LAB Expiration Date [id number] S BLOOD BANK LAB Unit Description AS1 LR PRBC [facility] BLOOD BANK LAB Unit ABO B [facility] BLOOD [facility] Unit Rh POS [facility] BLOOD BANK LAB Product [facility] R02 [facility] B LOOD BANK LAB Unit Donor # [id number] [facility] BLOOD BANK LAB Unit Status released [facility] BLOO D BANK LAB Product Code [id number] [facility] BLO OD BANK LAB Blood Type Barcode 7300 [facility] BLOOD BANK LAB Expiration Date [id number] S BLOOD BANK LAB Blood Bank BLOOD SPECIMEN / Unknown 08/19/2020 6:25 AM BUHR MILL OPERATOR Dionte Comer MD LAB - BLOOD BANK ORD JENISE [facility] B[facility]OD [facility] [address] [place] [address], [place] [phone] * (ABNORMAL) PHOSPHORUS BLOOD (08/22/2020 11:50 PM BUHR MILL OPERATOR) Pathologist [facility] Phosphorus 5.0(H) 2.3 - 4.7 mg/dL 08/23/2020 12:22 AM [facility] Blood BLOOD SPECIMEN / Unknown Venipuncture / Unknown 08/22/2020 11:50 PM BUHR MILL OPERATOR 08/22/2020 6:16 PM BUHR MILL OPERATOR Dionte Comer MD LAB - CHEMISTRY ASH WEAVER Performing Organization Address City/[facility] Co de Phone Number [facility] [address] [place] [address], [facility] [phone] * (ABNORMAL) CBC W/O DIFFERENTIAL (08/22/2020 11:50 PM BUHR MILL OPERATOR) [facility] WBC 13.1(H) 3.5 - 10.5 10? 3 /uL 08/23/2020 12:02 AM [facility] RBC 3.91 3.90 - 5.00 10? 6 /uL 08/23/2020 12:02 AM [facility] Hemoglobin 11.4(L) 12.0 - 15.5 g/dL 08/23/2020 12:02 AM [facility] Hematocrit 35.4 35.0 - 45.0 % 08/23/2020 12:02 AM [facility] MCV 90.5 81.0 - 97.0 fL 08/23/2020 12:02 AM [facility] MCH 29.2 28.0 - 34.0 pg 08/23/2020 12:02 AM [facility] MCHC 32.2 32.0 - 36.0 g/dL 08/23/2020 12:02 AM [facility] Platelet Count 273 150 - 400 10? 3 /uL 08/23/2020 12:02 AM [facility] RDW-SD 40.9 36.0 - 50.0 fL 08/23/2020 12:02 AM [facility] RDW-CV 12.4 11.2 - 14.8 % 08/23/2020 12:02 AM [facility] MPV 9.6 9.3 - 12.8 fL 08/23/2020 12:02 AM [facility] nRBC Absolute 0.00 0 10? 3 /uL 08/23/2020 12:02 AM [facility] nRBC Auto 0.0 0 /100 WBC 08/23/2020 12:02 AM [facility] Blood BLOOD SPECIMEN / Unknown Venipuncture / Unknown 08/22/2020 11:50 PM BUHR MILL OPERATOR 08/22/2020 6:16 PM BUHR MILL OPERATOR Dionte Comer MD LAB - HEMATOLOGY ORD ERABLES [facility] [address] [place] [address], [facility] [phone] * (ABNORMAL) BASIC METABOLIC PANEL (CALCIUM TOTAL) (08/22/2020 11:50 PM BUHR MILL OPERATOR) BUN 6(L) 7 - 26 mg/dL 08/23/2020 12:22 AM [facility] Creatinine 0.6 0.6 - 1.2 mg/dL 08/23/2020 12:22 AM [facility] Sodium 145 136 - 145 mmol/L 08/23/2020 12:22 AM [facility] Potassium 3.6 3.5 - 4.5 mmol/L 08/23/2020 12:22 AM [facility] Chloride 99 98 - 107 mmol/L 08/23/2020 12:22 AM [facility] CO2 35(H) 22 - 29 mmol/L 08/23/2020 12:22 AM [facility] Glucose 104 70 - 115 mg/dL 08/23/2020 12:22 AM [facility] Calcium 7.6(L) 8.4 - 10.2 mg/dL 08/23/2020 12:22 AM [facility] Anion Gap 15 8 - 18 08/23/2020 12:22 AM [facility] BUN/Creatinine Ratio 10 7 - 23 08/23/2020 12:22 AM [facility] Osmolality Calculated 298 270 - 300 mOsm/kg 08/23/2020 12:22 AM [facility] eGFR >60 >60 mL/min/1.7 3 m2 08/23/2020 12:22 AM [facility] Blood BLOOD SPECIMEN / Unknown Venipuncture / Unknown 08/22/2020 11:50 PM BUHR MILL OPERATOR 08/22/2020 6:16 PM BUHR MILL OPERATOR Dionte Comer MD LAB - CHEMISTRY ASH WEAVER Performing Organization Address [facility]/ZIP Co de Phone Number [address] [address], [facility] [phone] * (ABNORMAL) CALCIUM IONIZED WHOLE BLOOD (08/22/2020 11:50 PM BUHR MILL OPERATOR) Ionized Calcium Whole Blood 1.02 mmol/L 08/22/2020 11:[address] [facility] Adjusted Ionized Calcium 0.99(L) 1.19 - 1.34 mmol/L 08/22/2020 11:[address] [facility] pH Whole Blood 7.34(L) 7.35 - 7.45 08/22/2020 11:[address] [facility] Blood WHOLE BLOOD SPECIMEN / Unknown Venipuncture / Unknown 08/22/2020 11:50 PM BUHR MILL OPERATOR 08/22/2020 11:54 PM BUHR MILL OPERATOR Dionte Comer MD LAB - CHEMISTRY ASH WEAVER Performing Organization Address City/[facility]/ZIP Co de Phone Number [address] [address], [facility] [phone] * (ABNORMAL) CALCIUM IONIZED WHOLE BLOOD (08/22/2020 4:36 PM BUHR MILL OPERATOR) Ionized Calcium Whole Blood 0.93 mmol/L 08/22/2020 4:[address] [facility] Adjusted Ionized Calcium 0.92(L) 1.19 - 1.34 mmol/L 08/22/2020 4:[address] [address] [facility] pH Whole Blood 7.39 7.35 - 7.45 08/22/2020 4:[address] [address] [address] [facility] Blood WHOLE BLOOD SPECIMEN / Unknown Venipuncture / Unknown 08/22/2020 4:36 PM BUHR MILL OPERATOR 08/22/2020 4:41 PM BUHR MILL OPERATOR Dionte Comer MD LAB - CHEMISTRY ASH WEAVER [facility] [address] [place] [address], [facility] [phone] * (ABNORMAL) RENAL FUNCTION PANEL (08/22/2020 11:05 AM [facility]) BUN 6(L) 7 - 26 mg/dL 08/22/2020 11:36 AM [facility] Creatinine 0.5(L) 0.6 - 1.2 mg/dL 08/22/2020 11:36 AM [facility] Sodium 145 136 - 145 mmol/L 08/22/2020 11:36 AM [facility] Potassium 3.9 3.5 - 4.5 mmol/L 08/22/2020 11:36 AM [facility] Chloride 99 98 - 107 mmol/L 08/22/2020 11:36 AM [facility] CO2 33(H) 22 - 29 mmol/L 08/22/2020 11:36 AM [facility] Glucose 118(H) 70 - 115 mg/dL 08/22/2020 11:36 AM [facility] Albumin 3.0(L) 3.4 - 5.0 g/dL 08/22/2020 11:36 AM [facility] Calcium 7.5(L) 8.4 - 10.2 mg/dL 08/22/2020 11:36 AM [facility] Phosphorus 4.9(H) 2.3 - 4.7 mg/dL 08/22/2020 11:36 AM [facility] Anion Gap 17 8 - 18 08/22/2020 11:36 AM [facility] BUN/Creatinine Ratio 12 7 - 23 08/22/2020 11:36 AM [facility] Osmolality Calculated 299 270 - 300 mOsm/kg 08/22/2020 11:36 AM [facility] eGFR >60 >60 mL/min/1.7 3 m2 08/22/2020 11:36 AM [facility] Blood BLOOD SPECIMEN / Unknown Venipuncture / Unknown 08/22/2020 11:05 AM BUHR MILL OPERATOR 08/22/2020 11:12 AM BUHR MILL OPERATOR Dionte Comer MD LAB - CHEMISTRY ASH WEAVER [address] [address], [place] [phone] * MAGNESIUM BLOOD (08/22/2020 11:05 AM BUHR MILL OPERATOR) Magnesium 1.9 1.6 - 2.6 mg/dL 08/22/2020 11:36 AM [facility] Blood BLOOD SPECIMEN / Unknown Venipuncture / Unknown 08/22/2020 11:05 AM BUHR MILL OPERATOR 08/22/2020 11:12 AM BUHR MILL OPERATOR Dionte Comer MD LAB - CHEMISTRY ASH WEAVER Performing Organization Address City/[facility]/ZIP Co de Phone Number [address] [address], [place] [phone] * (ABNORMAL) CALCIUM IONIZED WHOLE BLOOD (08/22/2020 11:05 AM BUHR MILL OPERATOR) Ionized Calcium Whole Blood 1.04 mmol/L 08/22/2020 11:12 AM [facility] Adjusted Ionized Calcium 1.01(L) 1.19 - 1.34 mmol/L 08/22/2020 11:12 AM [facility] pH Whole Blood 7.35 7.35 - 7.45 08/22/2020 11:12 AM [facility] Blood WHOLE BLOOD SPECIMEN / Unknown Venipuncture / Unknown 08/22/2020 11:05 AM [facility] 08/22/2020 11:11 AM [facility] Dionte Comer MD LAB - CHEMISTRY [facility] [address] [address], [place] [phone] * (ABNORMAL) CALCIUM IONIZED WHOLE BLOOD (08/22/2020 5:04 AM [facility]) Ionized Calcium Whole Blood 1.11 mmol/L 08/22/2020 5:09 AM [facility] Adjusted Ionized Calcium 1.08(L) 1.19 - 1.34 mmol/L 08/22/2020 5:09 AM [facility] pH Whole Blood 7.35 7.35 - 7.45 08/22/2020 5:09 AM [facility] Blood WHOLE BLOOD SPECIMEN / Unknown Venipuncture / Unknown 08/22/2020 5:04 AM [facility] 08/22/2020 5:07 AM [facility] Dionte Comer MD LAB - CHEMISTRY [facility] [address] [address], [place] [phone] * PHOSPHORUS BLOOD (08/21/2020 11:44 PM [facility]) Phosphorus 4.4 2.3 - 4.7 mg/dL 08/22/2020 12:20 AM [facility] Blood BLOOD SPECIMEN / Unknown Venipuncture / Unknown 08/21/2020 11:44 PM [facility] 08/21/2020 6:16 PM [facility] Dionte Comer MD LAB - CHEMISTRY [facility] [address] [address], [place] [phone] * MAGNESIUM BLOOD (08/21/2020 11:44 PM [facility]) Magnesium 1.6 1.6 - 2.6 mg/dL 08/22/2020 12:20 AM [facility] Blood BLOOD SPECIMEN / Unknown Venipuncture / Unknown 08/21/2020 11:44 PM [facility] 08/21/2020 6:16 PM [facility] Dionte Comer MD LAB - CHEMISTRY [facility] [address] [address], [place] [phone] * (ABNORMAL) CBC W/O DIFFERENTIAL (08/21/2020 11:44 PM [facility]) WBC 10.3 3.5 - 10.5 10? 3 /uL 08/21/2020 11:55 PM [facility] RBC 3.94 3.90 - 5.00 10? 6 /uL 08/21/2020 11:55 PM [facility] Hemoglobin 11.4(L) 12.0 - 15.5 g/dL 08/21/2020 11:55 PM [facility] Hematocrit 35.7 35.0 - 45.0 % 08/21/2020 11:55 PM [facility] MCV 90.6 81.0 - 97.0 fL 08/21/2020 11:55 PM [facility] MCH 28.9 28.0 - 34.0 pg 08/21/2020 11:55 PM [facility] MCHC 31.9(L) 32.0 - 36.0 g/dL 08/21/2020 11:55 PM [facility] Platelet Count 270 150 - 400 10? 3 /uL 08/21/2020 11:55 PM [facility] RDW-SD 41.8 36.0 - 50.0 fL 08/21/2020 11:55 PM [facility] RDW-CV 12.4 11.2 - 14.8 % 08/21/2020 11:55 PM [facility] MPV 9.6 9.3 - 12.8 fL 08/21/2020 11:55 PM [facility] nRBC Absolute 0.00 0 10? 3 /uL 08/21/2020 11:55 PM [facility] nRBC Auto 0.0 0 /100 WBC 08/21/2020 11:55 PM [facility] Blood BLOOD SPECIMEN / Unknown Venipuncture / Unknown 08/21/2020 11:44 PM BUHR MILL OPERATOR 08/21/2020 6:16 PM BUHR MILL OPERATOR Dionte Comer MD LAB - HEMATOLOGY ORD ERABLES [facility] [address] [place] [address], [facility] [phone] * (ABNORMAL) BASIC METABOLIC PANEL (CALCIUM TOTAL) (08/21/2020 11:44 PM BUHR MILL OPERATOR) Pathologist [facility] BUN 5(L) 7 - 26 mg/dL 08/22/2020 12:20 AM [facility] Creatinine 0.6 0.6 - 1.2 mg/dL 08/22/2020 12:20 AM [facility] Sodium 144 136 - 145 mmol/L 08/22/2020 12:20 AM [facility] Potassium 3.6 3.5 - 4.5 mmol/L 08/22/2020 12:20 AM [facility] Chloride 101 98 - 107 mmol/L 08/22/2020 12:20 AM [facility] CO2 34(H) 22 - 29 mmol/L 08/22/2020 12:20 AM [facility] Glucose 117(H) 70 - 115 mg/dL 08/22/2020 12:20 AM [facility] Calcium 8.2(L) 8.4 - 10.2 mg/dL 08/22/2020 12:20 AM [facility] Anion Gap 13 8 - 18 08/22/2020 12:20 AM [facility] BUN/Creatinine Ratio 8 7 - 23 08/22/2020 12:20 AM [facility] Osmolality Calculated 296 270 - 300 mOsm/kg 08/22/2020 12:20 AM [facility] eGFR >60 >60 mL/min/1.7 3 m2 08/22/2020 12:20 AM [facility] Blood BLOOD SPECIMEN / Unknown Venipuncture / Unknown 08/21/2020 11:44 PM BUHR MILL OPERATOR 08/21/2020 6:16 PM BUHR MILL OPERATOR Dionte Comer MD LAB - CHEMISTRY ASH WEAVER [facility] Organization Address City/State/ZIP Co de Phone Number [facility] [address] [place] [phone], [facility] [phone] * (ABNORMAL) CALCIUM IONIZED WHOLE BLOOD (08/21/2020 11:43 PM BUHR MILL OPERATOR) [facility] Ionized Calcium Whole Blood 1.17 mmol/L 08/21/2020 11:50 PM [facility] Adjusted Ionized Calcium 1.15(L) 1.19 - 1.34 mmol/L 08/21/2020 11:50 PM [facility] pH Whole Blood 7.37 7.35 - 7.45 08/21/2020 11:50 PM [facility] Blood WHOLE BLOOD SPECIMEN / Unknown Venipuncture / Unknown 08/21/2020 11:43 PM BUHR MILL OPERATOR 08/21/2020 11:49 PM BUHR MILL OPERATOR Dionte Comer MD LAB - CHEMISTRY ASH WEAVER [address] [address], [facility] [phone] * (ABNORMAL) CALCIUM IONIZED WHOLE BLOOD (08/21/2020 5:34 PM BUHR MILL OPERATOR) Ionized Calcium Whole Blood 1.08 mmol/L 08/21/2020 5:44 PM [facility] Adjusted Ionized Calcium 1.06(L) 1.19 - 1.34 mmol/L 08/21/2020 5:44 PM [facility] pH Whole Blood 7.36 7.35 - 7.45 08/21/2020 5:44 PM [facility] Blood WHOLE BLOOD SPECIMEN / Unknown Venipuncture / Unknown 08/21/2020 5:34 PM BUHR MILL OPERATOR 08/21/2020 5:42 PM BUHR MILL OPERATOR Dionte Comer MD LAB - CHEMISTRY ASH WEAVER [address] [address], [facility] [phone] * MAGNESIUM BLOOD (08/21/2020 12:01 PM BUHR MILL OPERATOR) Magnesium 1.7 1.6 - 2.6 mg/dL 08/21/2020 12:38 PM [facility] Blood BLOOD SPECIMEN / Unknown Venipuncture / Unknown 08/21/2020 12:01 PM BUHR MILL OPERATOR 08/21/2020 12:16 PM BUHR MILL OPERATOR iDonte Comer MD LAB - CHEMISTRY ASH WEAVER Performing Organization Address City/[facility]/ZIP Co de Phone Number [address] [address], [facility] [phone] * (ABNORMAL) CALCIUM IONIZED WHOLE BLOOD (08/21/2020 11:07 AM BUHR MILL OPERATOR) Ionized Calcium Whole Blood 1.09 mmol/L 08/21/2020 11:13 AM [facility] Adjusted Ionized Calcium 1.08(L) 1.19 - 1.34 mmol/L 08/21/2020 11:13 AM [facility] pH Whole Blood 7.39 7.35 - 7.45 08/21/2020 11:13 AM [facility] Blood WHOLE BLOOD SPECIMEN / Unknown Venipuncture / Unknown 08/21/2020 11:07 AM BUHR MILL OPERATOR 08/21/2020 11:11 AM BUHR MILL OPERATOR Dionte Comer MD LAB - CHEMISTRY ASH WEAVER Performing Organization Address [facility]/ZIP Co de Phone Number [address] [address], [facility] [phone] * (ABNORMAL) THYROGLOBULIN BY ANTONIETA RFLXED (08/21/2020 4:25 AM BUHR MILL OPERATOR) Thyroglobulin by ANTONIETA 192.2(H) 1.5 - 38.5 ng/mL 08/22/2020 6:07 PM [facility] ([facility]) Comment: According to the National Academy [...] Unknown Venipuncture / Unknown 08/21/2020 4:25 AM BUHR MILL OPERATOR 08/21/2020 4:49 AM BUHR MILL OPERATOR Narrative [facility] ([facility]) - 08/22/2020 6:07 PM BUHR MILL OPERATOR Performed at: ??01 - [facility] [address] ??[id number] Apprentice/Lineman: Oral Melendez PhD, Phone: ??[phone] Dionte Comer MD LAB - CHEMISTRY ASH WEAVER Performing Organization Address City/[facility]/ZIP Co de Phone Number [facility]) [address] [place] [address], [facility] * (ABNORMAL) CALCIUM IONIZED WHOLE BLOOD (08/21/2020 4:25 AM BUHR MILL OPERATOR) Pathologist [facility] Ionized Calcium Whole Blood 1.14 mmol/L 08/21/2020 4:31 AM [facility] Adjusted Ionized Calcium 1.12(L) 1.19 - 1.34 mmol/L 08/21/2020 4:31 AM [facility] pH Whole Blood 7.37 7.35 - 7.45 08/21/2020 4:31 AM [facility] Blood WHOLE BLOOD SPECIMEN / Unknown Venipuncture / Unknown 08/21/2020 4:25 AM BUHR MILL OPERATOR 08/21/2020 4:28 AM BUHR MILL OPERATOR Dionte Comer MD LAB - CHEMISTRY ASH WEAVER [facility] [address] [place] [phone], [facility] [phone] * THYROGLOBULIN REFLEX PROFILE (08/21/2020 4:25 AM BUHR MILL OPERATOR) Pathologist [facility] Thyroglobulin Antibody <1.0 0.0 - 0.9 IU/mL 08/22/2020 6:07 PM BUHR MILL OPERATOR [facility] ([facility]) Comment:Thyroglobulin Antibo dy measured by Lisbet Treynor Methodology Blood BLOOD SPECIMEN / Unknown Venipuncture / Unknown 08/21/2020 4:25 AM BUHR MILL OPERATOR 08/21/2020 4:49 AM BUHR MILL OPERATOR Narrative [facility] ([facility]) - 08/22/2020 6:07 PM BUHR MILL OPERATOR Performed at: ??01 - [facility] [address] ??[id number] Apprentice/Lineman: Oral Melendez PhD, Phone: ??[phone] Dionte Comer MD LAB - CHEMISTRY ASH WEAVER Performing Organization Address [facility]/ZIP Co de Phone Number [facility] ([facility]) [address] [place] [address], [facility] * VITAMIN D 25-HYDROXY (08/21/2020 4:25 AM BUHR MILL OPERATOR) [facility] Vitamin D, 25 Hydroxy 32.0 See comment: ng/mL 08/21/2020 5:[address] [facility] Comment: The recommendations [...] Unknown Venipuncture / Unknown 08/21/2020 4:25 AM BUHR MILL OPERATOR 08/21/2020 4:29 AM BUHR MILL OPERATOR Dionte Comer MD LAB - CHEMISTRY ASH WEAVER [facility] [address] [place] [address], [place] [phone] * PHOSPHORUS BLOOD (08/20/2020 11:24 PM BUHR MILL OPERATOR) [facility] Phosphorus 4.5 2.3 - 4.7 mg/dL 08/21/2020 12:00 AM [facility] Blood BLOOD SPECIMEN / Unknown Venipuncture / Unknown 08/20/2020 11:24 PM BUHR MILL OPERATOR 08/20/2020 6:16 PM BUHR MILL OPERATOR Dionte Comer MD LAB - CHEMISTRY ASH WEAVER [address] [address], [facility] [phone] * (ABNORMAL) MAGNESIUM BLOOD (08/20/2020 11:24 PM BUHR MILL OPERATOR) Magnesium 1.5(L) 1.6 - 2.6 mg/dL 08/21/2020 12:00 AM [facility] Blood BLOOD SPECIMEN / Unknown Venipuncture / Unknown 08/20/2020 11:24 PM BUHR MILL OPERATOR 08/20/2020 6:16 PM BUHR MILL OPERATOR Dionte Comer MD LAB - CHEMISTRY ASH WEAVER Performing Organization Address City/[facility]/ZIP Co de Phone Number [address] [address], [facility] [phone] * (ABNORMAL) CBC W/O DIFFERENTIAL (08/20/2020 11:24 PM BUHR MILL OPERATOR) WBC 12.6(H) 3.5 - 10.5 10? 3 /uL 08/20/2020 11:40 PM [facility] RBC 4.41 3.90 - 5.00 10? 6 /uL 08/20/2020 11:40 PM [facility] Hemoglobin 12.9 12.0 - 15.5 g/dL 08/20/2020 11:40 PM [facility] Hematocrit 40.2 35.0 - 45.0 % 08/20/2020 11:40 PM [facility] MCV 91.2 81.0 - 97.0 fL 08/20/2020 11:40 PM [facility] MCH 29.3 28.0 - 34.0 pg 08/20/2020 11:40 PM [facility] MCHC 32.1 32.0 - 36.0 g/dL 08/20/2020 11:40 PM [facility] Platelet Count 261 150 - 400 10? 3 /uL 08/20/2020 11:40 PM [facility] RDW-SD 43.8 36.0 - 50.0 fL 08/20/2020 11:40 PM [facility] RDW-CV 13.0 11.2 - 14.8 % 08/20/2020 11:40 PM [facility] MPV 9.6 9.3 - 12.8 fL 08/20/2020 11:40 PM [facility] nRBC Absolute 0.00 0 10? 3 /uL 08/20/2020 11:40 PM [facility] nRBC Auto 0.0 0 /100 WBC 08/20/2020 11:40 PM [facility] Blood BLOOD SPECIMEN / Unknown Venipuncture / Unknown 08/20/2020 11:24 PM BUHR MILL OPERATOR 08/20/2020 6:16 PM BUHR MILL OPERATOR Dionte Comer MD LAB - HEMATOLOGY ORD ERABLES [address] [address] [phone] * (ABNORMAL) BASIC METABOLIC PANEL (CALCIUM TOTAL) (08/20/2020 11:24 PM BUHR MILL OPERATOR) BUN 7 7 - 26 mg/dL 08/21/2020 12:00 AM [facility] Creatinine 0.7 0.6 - 1.2 mg/dL 08/21/2020 12:00 AM [facility] Sodium 136 136 - 145 mmol/L 08/21/2020 12:00 AM [facility] Potassium 3.7 3.5 - 4.5 mmol/L 08/21/2020 12:00 AM [facility] Chloride 98 98 - 107 mmol/L 08/21/2020 12:00 AM [facility] CO2 30(H) 22 - 29 mmol/L 08/21/2020 12:00 AM [facility] Glucose 133(H) 70 - 115 mg/dL 08/21/2020 12:00 AM [facility] Calcium 8.2(L) 8.4 - 10.2 mg/dL 08/21/2020 12:00 AM [facility] Anion Gap 12 8 - 18 08/21/2020 12:00 AM [facility] BUN/Creatinine Ratio 10 7 - 23 08/21/2020 12:00 AM [facility] Osmolality Calculated 282 270 - 300 mOsm/kg 08/21/2020 12:00 AM [facility] eGFR >60 >60 mL/min/1.7 3 m2 08/21/2020 12:00 AM [facility] Blood BLOOD SPECIMEN / Unknown Venipuncture / Unknown 08/20/2020 11:24 PM BUHR MILL OPERATOR 08/20/2020 6:16 PM BUHR MILL OPERATOR Dionte Comer MD LAB - CHEMISTRY ASH WEAVER Performing Organization Address City/[facility]/ZIP Co de Phone Number [address] [address], [facility] [phone] * (ABNORMAL) CALCIUM IONIZED WHOLE BLOOD (08/20/2020 11:04 PM BUHR MILL OPERATOR) Ionized Calcium Whole Blood 1.18 mmol/L 08/20/2020 11:13 PM [facility] Adjusted Ionized Calcium 1.16(L) 1.19 - 1.34 mmol/L 08/20/2020 11:13 PM [facility] pH Whole Blood 7.37 7.35 - 7.45 08/20/2020 11:13 PM [facility] Blood WHOLE BLOOD SPECIMEN / Unknown Venipuncture / Unknown 08/20/2020 11:04 PM BUHR MILL OPERATOR 08/20/2020 11:10 PM BUHR MILL OPERATOR Dionte Comer MD LAB - CHEMISTRY ASH WEAVER [address] [address], [place] [phone] * (ABNORMAL) CALCIUM IONIZED WHOLE BLOOD (08/20/2020 5:46 PM BUHR MILL OPERATOR) Ionized Calcium Whole Blood 1.17 mmol/L 08/20/2020 5:55 PM [facility] Adjusted Ionized Calcium 1.16(L) 1.19 - 1.34 mmol/L 08/20/2020 5:55 PM [facility] pH Whole Blood 7.38 7.35 - 7.45 08/20/2020 5:55 PM [facility] Blood WHOLE BLOOD SPECIMEN / Unknown Venipuncture / Unknown 08/20/2020 5:46 PM BUHR MILL OPERATOR 08/20/2020 5:53 PM BUHR MILL OPERATOR Dionte Comer MD LAB - CHEMISTRY ASH WEAVER [address] [address], [facility] [phone] * (ABNORMAL) CALCIUM IONIZED WHOLE BLOOD (08/20/2020 11:41 AM BUHR MILL OPERATOR) [facility] Ionized Calcium Whole Blood 1.13 mmol/L 08/20/2020 11:48 AM [facility] Adjusted Ionized Calcium 1.08(L) 1.19 - 1.34 mmol/L 08/20/2020 11:48 AM [facility] pH Whole Blood 7.31(L) 7.35 - 7.45 08/20/2020 11:48 AM [facility] Blood WHOLE BLOOD SPECIMEN / Unknown Venipuncture / Unknown 08/20/2020 11:41 AM BUHR MILL OPERATOR 08/20/2020 11:46 AM BUHR MILL OPERATOR Dionte Comer MD LAB - CHEMISTRY ASH WEAVER [address] [address], [facility] [phone] * (ABNORMAL) CALCIUM IONIZED WHOLE BLOOD (08/20/2020 5:08 AM BUHR MILL OPERATOR) Ionized Calcium Whole Blood 1.01 mmol/L 08/20/2020 5:14 AM [facility] Adjusted Ionized Calcium 0.98(L) 1.19 - 1.34 mmol/L 08/20/2020 5:[address] [facility] pH Whole Blood 7.35 7.35 - 7.45 08/20/2020 5:[address] [facility] Blood WHOLE BLOOD SPECIMEN / Unknown Venipuncture / Unknown 08/20/2020 5:08 AM BUHR MILL OPERATOR 08/20/2020 5:12 AM BUHR MILL OPERATOR Dionte Comer MD LAB - CHEMISTRY ASH WEAVER Performing Organization Address City/[facility]/ZIP Co de Phone Number [address] [address], [place] [phone] * (ABNORMAL) PTH INTACT W/O CALCIUM (08/20/2020 5:08 AM BUHR MILL OPERATOR) PTH Intact <4.0(L) 8.0 - 77.0 pg/mL 08/20/2020 5:[address] [facility] Blood BLOOD SPECIMEN / Unknown Venipuncture / Unknown 08/20/2020 5:08 AM BUHR MILL OPERATOR 08/20/2020 5:12 AM BUHR MILL OPERATOR Dionte Comer MD LAB - CHEMISTRY ASH WEAVER Performing Organization Address [facility]/ZIP Co de Phone Number [address] [address], [place] [phone] * (ABNORMAL) PHOSPHORUS BLOOD (08/19/2020 11:48 PM BUHR MILL OPERATOR) Phosphorus 6.5(H) 2.3 - 4.7 mg/dL 08/20/2020 12:[address] [facility] Blood BLOOD SPECIMEN / Unknown Venipuncture / Unknown 08/19/2020 11:48 PM BUHR MILL OPERATOR 08/19/2020 6:16 PM BUHR MILL OPERATOR Dionte Comer MD LAB - CHEMISTRY ASH WEAVER Performing Organization Address City/[facility]/ZIP Co de Phone Number [address] [address], [place] [phone] * MAGNESIUM BLOOD (08/19/2020 11:48 PM BUHR MILL OPERATOR) Magnesium 1.6 1.6 - 2.6 mg/dL 08/20/2020 12:30 AM [facility] Blood BLOOD SPECIMEN / Unknown Venipuncture / Unknown 08/19/2020 11:48 PM BUHR MILL OPERATOR 08/19/2020 6:16 PM BUHR MILL OPERATOR Dionte Comer MD LAB - CHEMISTRY ASH WEAVER Performing Organization Address City/State/[facility] Co de Phone Number [facility] [address] [place] [address], [facility] [phone] * (ABNORMAL) CBC W/O DIFFERENTIAL (08/19/2020 11:48 PM BUHR MILL OPERATOR) Pathologist [facility] WBC 15.3(H) 3.5 - 10.5 10? 3 /uL 08/20/2020 12:05 AM [facility] RBC 4.82 3.90 - 5.00 10? 6 /uL 08/20/2020 12:05 AM [facility] Hemoglobin 14.3 12.0 - 15.5 g/dL 08/20/2020 12:05 AM [facility] Hematocrit 43.7 35.0 - 45.0 % 08/20/2020 12:05 AM [facility] MCV 90.7 81.0 - 97.0 fL 08/20/2020 12:05 AM [facility] MCH 29.7 28.0 - 34.0 pg 08/20/2020 12:05 AM [facility] MCHC 32.7 32.0 - 36.0 g/dL 08/20/2020 12:05 AM [facility] Platelet Count 280 150 - 400 10? 3 /uL 08/20/2020 12:05 AM [facility] RDW-SD 43.7 36.0 - 50.0 fL 08/20/2020 12:05 AM [facility] RDW-CV 13.1 11.2 - 14.8 % 08/20/2020 12:05 AM [facility] MPV 9.4 9.3 - 12.8 fL 08/20/2020 12:05 AM [facility] nRBC Absolute 0.00 0 10? 3 /uL 08/20/2020 12:05 AM [facility] nRBC Auto 0.0 0 /100 WBC 08/20/2020 12:05 AM [facility] Blood BLOOD SPECIMEN / Unknown Venipuncture / Unknown 08/19/2020 11:48 PM BUHR MILL OPERATOR 08/19/2020 6:16 PM BUHR MILL OPERATOR Dionte Comre MD LAB - HEMATOLOGY ORD ERABLES [facility] [address] [place] [address], [facility] [phone] * (ABNORMAL) BASIC METABOLIC PANEL (CALCIUM TOTAL) (08/19/2020 11:48 PM BUHR MILL OPERATOR) BUN 10 7 - 26 mg/dL 08/20/2020 12:30 AM [facility] Creatinine 0.7 0.6 - 1.2 mg/dL 08/20/2020 12:30 AM [facility] Sodium 137 136 - 145 mmol/L 08/20/2020 12:30 AM [facility] Potassium 4.5 3.5 - 4.5 mmol/L 08/20/2020 12:30 AM [facility] Chloride 103 98 - 107 mmol/L 08/20/2020 12:30 AM [facility] CO2 24 22 - 29 mmol/L 08/20/2020 12:30 AM [facility] Glucose 204(H) 70 - 115 mg/dL 08/20/2020 12:30 AM [facility] Calcium 7.7(L) 8.4 - 10.2 mg/dL 08/20/2020 12:30 AM [facility] Anion Gap 15 8 - 18 08/20/2020 12:30 AM [facility] BUN/Creatinine Ratio 14 7 - 23 08/20/2020 12:30 AM [facility] Osmolality Calculated 289 270 - 300 mOsm/kg 08/20/2020 12:30 AM [facility] eGFR >60 >60 mL/min/1.7 3 m2 08/20/2020 12:30 AM [facility] Blood BLOOD SPECIMEN / Unknown Venipuncture / Unknown 08/19/2020 11:48 PM BUHR MILL OPERATOR 08/19/2020 6:16 PM BUHR MILL OPERATOR Dionte Comer MD LAB - CHEMISTRY ASH WEAVER Performing Organization Address [facility]/ZIP Co de Phone Number [address] [address], [facility] [phone] * (ABNORMAL) CALCIUM IONIZED WHOLE BLOOD (08/19/2020 11:48 PM BUHR MILL OPERATOR) Ionized Calcium Whole Blood 1.10 mmol/L 08/20/2020 12:[address] [facility] Adjusted Ionized Calcium 1.05(L) 1.19 - 1.34 mmol/L 08/20/2020 12:[address] [facility] pH Whole Blood 7.30(L) 7.35 - 7.45 08/20/2020 12:02 AM BUHR MILL OPERATOR [facility] Blood WHOLE BLOOD SPECIMEN / Unknown Venipuncture / Unknown 08/19/2020 11:48 PM BUHR MILL OPERATOR 08/19/2020 11:55 PM BUHR MILL OPERATOR Dionte Comer MD LAB - CHEMISTRY ASH WEAVER Performing Organization Address [facility]/ZIP Co de Phone Number [address] [address], [facility] [phone] * (ABNORMAL) CALCIUM IONIZED WHOLE BLOOD (08/19/2020 6:16 PM BUHR MILL OPERATOR) Ionized Calcium Whole Blood 1.09 mmol/L 08/19/2020 6:30 PM BUHR MILL OPERATOR [facility] Adjusted Ionized Calcium 0.96(L) 1.19 - 1.34 mmol/L 08/19/2020 6:30 PM BUHR MILL OPERATOR [facility] pH Whole Blood 7.16(L) 7.35 - 7.45 08/19/2020 6:[address] [facility] Blood WHOLE BLOOD SPECIMEN / Unknown Venipuncture / Unknown 08/19/2020 6:16 PM BUHR MILL OPERATOR 08/19/2020 6:25 PM BUHR MILL OPERATOR Dionte Comer MD LAB - CHEMISTRY ASH FAUSTOHORTENCIA 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 Dictated by Kendall Quiroz MD (radiology physician). I, Dr. ROGER HOUSE have personally reviewed and interpreted this examination/study. This report was electronically signed by ROGER HOUSE ??on 08/20/2020 9:00 AM . Narrative 08/20/2020 9:00 AM BUHR MILL OPERATOR EXAMINATION: XR ABDOMEN KUB PORTABLE HISTORY: J39.8: [...] stomach. Dictated by Kendall Quiroz MD (radiology physician). I, Dr. ROGER HOUSE have personally reviewed and interpreted this examination/study. This report was electronically signed by ROGER HOUSE on 08/20/2020 9:00 AM . Dionte Comer MD DIAGNOSTIC IMAGING O RDERABLES * PATHOLOGY TISSUE (08/19/2020 9:43 AM BUHR MILL OPERATOR) Case Report Surgical Pathology Report ? Case: [id number] ? Authorizing Provider: ??Dionte Comer, ?Collected: ? 08/19/2020 11:45 AM ? Ordering Location: ? [facility] ?Received: ?08/20/2020 06:05 AM ? Pathologist: ? Michelle Anthony, ? Specimens: ?? A) - Lymph Node, [...] ink true margin ? 1 7:23 AM [facility] Final Diagnosis Lymph nodes, left [...] Submucosal tissue involved by tumor 7:23 AM [facility] Microscopic Description and Comment Hematoxylin [...] synoptic for further details. 1 7:23 AM [facility] Clinical History The patient is a 60 year old woman with thyroid mass and involvement with trachea, suspicious for follicular neoplasm. 1 7:23 AM [facility] Intraoperative Consultation Brought fresh to [...] Michelle Anthony M.D., Ph.D. 1 7:23 AM [facility] Gross Description The requisition and [...] bisected lymph node A2-A3 whole lymph nodes, I3-W3-zroqncafe adipose tissue. Received in formalin, specimen B is a 5 x 4.5 x 0.7 cm aggregate of pink to yellow-tovar fibroadipose tissue. Multiple lymph nodes are identified, 0.3-1.3 cm in greatest dimension. Entirely submitted as follows: B1-2 bisected lymph nodes, 1 differentially inked green, B2-whole lymph nodes, C6-Y1-xkbdwolxt adipose tissue Received in formalin, specimen C is a 5 x 3 x 1.4 cm aggregate of fibroadipose tissue. Multiple lymph nodes are identified, 0.3-2.4 cm in greatest dimension. The largest lymph node is grossly positive. Entirely submitted as follows: C1-C2-1 multiply sectioned lymph node, C3-C4-whole lymph nodes and adipose tissue, I0-U6-eodzvawfg adipose tissue with possible nodes. Received in [...] are identified, 0.4-1.5 cm in greatest dimension. Sample Case Porter sections are submitted to include all identifiable [...] with brown-tovar, mildly firm, unremarkable cut surfaces. Sample Case Porter sections submitted as follows (to include every [...] and inferior tracheal margins, frozen section control, U2-M5-mbujisahk cross sections. Received in formalin after frozen section, originally labeled P and relabeled as specimen O are fragments as described in the intraoperative consultation. The frozen section is entirely submitted in cassette O1. LJ 7:23 AM [facility] Addendum 1 A [place]-8 immunostain performed on specimen G, the frozen remnant of the right recurrent laryngeal nerve, highlights the tumor cells with weak nuclear reactivity. 7:23 AM [facility] Addendum electronically signed by Michelle Anthony MD on 09/03/2020 at 7:23 AM Disclaimer The performance characteristics of all immunohistochemical and indirect immunofluorescence stains (if any) cited in this report were determined by the Histopathology Laboratory of [facility]. Some of these tests were developed [...] by the attending (teaching) pathologist. 7:23 AM [facility] Synoptic Report THYROID GLAND ??(THYROID [...] Regional Lymph Nodes (pN): ?pN1b 7:23 AM [facility] Embedded Images 7:23 AM [facility] Biopsy, Excision (Lymph Node, Regional Resection) 08/19/2020 9:43 AM [facility] M[facility] OPERATOR 08/20/2020 6:05 AM [facility] M[facility] OPERATOR Comment:Pre-op diagnosis: TRACHEAL MASS, HOARSENESS, RIGHT VOCAL CORD PARALYSIS, LYMPHADENECTOMY HEAD AND NECK Biopsy, Excision (Lymph Node, Regional Resection) 08/19/2020 9:43 AM [facility] OPERATOR 08/20/2020 6:05 AM [facility] M[facility] OPERATOR Comment:Pre-op diagnosis: TRACHEAL MASS, HOARSENESS, RIGHT VOCAL CORD PARALYSIS, LYMPHADENECTOMY HEAD AND NECK Biopsy, Excision (Lymph Node, Regional Resection) 08/19/2020 9:43 AM [facility] M[facility] OPERATOR 08/20/2020 6:05 AM [facility] M[facility] OPERATOR Comment:Pre-op diagnosis: TRACHEAL MASS, HOARSENESS, RIGHT VOCAL CORD PARALYSIS, LYMPHADENECTOMY HEAD AND NECK Lymph Node Dissection (Lymph Node, Regional Resection) 08/19/2020 10:07 AM [facility] M[facility] OPERATOR 08/20/2020 6:05 AM [facility] M[facility] OPERATOR Comment:Pre-op diagnosis: TRACHEAL MASS, HOARSENESS, RIGHT VOCAL CORD PARALYSIS, LYMPHADENECTOMY HEAD AND NECK Lymph Node Dissection (Lymph Node, Regional Resection) 08/19/2020 10:27 AM [facility] M[facility] OPERATOR 08/20/2020 6:05 AM [facility] M[facility] OPERATOR Comment:Pre-op diagnosis: TRACHEAL MASS, HOARSENESS, RIGHT VOCAL CORD PARALYSIS, LYMPHADENECTOMY HEAD AND NECK Lymph Node Dissection (Lymph Node, Regional Resection) 08/19/2020 10:28 AM [facility] M[facility] OPERATOR 08/20/2020 6:05 AM [facility] M[facility] OPERATOR Comment:Pre-op diagnosis: TRACHEAL MASS, HOARSENESS, RIGHT VOCAL CORD PARALYSIS, LYMPHADENECTOMY HEAD AND NECK Biopsy, Excision (Soft Tissue, Other) 08/19/2020 11:45 AM [facility] M[facility] OPERATOR 08/20/2020 6:05 AM [facility] M[facility] OPERATOR Comment:Pre-op diagnosis: TRACHEAL MASS, HOARSENESS, RIGHT VOCAL CORD PARALYSIS, LYMPHADENECTOMY HEAD AND NECK Biopsy, Excision ENTIRE LOBE OF THYROID GLAND / Unknown 08/19/2020 11:55 AM [facility] M[facility] OPERATOR 08/20/2020 6:05 AM [facility] M[facility] OPERATOR Comment:Pre-op diagnosis: TRACHEAL MASS, HOARSENESS, RIGHT VOCAL CORD PARALYSIS, LYMPHADENECTOMY HEAD AND NECK Biopsy, Excision (Soft Tissue, Other) 08/19/2020 12:06 PM [facility] M[facility] OPERATOR 08/20/2020 6:05 AM [facility] M[facility] OPERATOR Comment:Pre-op diagnosis: TRACHEAL MASS, HOARSENESS, RIGHT VOCAL CORD PARALYSIS, LYMPHADENECTOMY HEAD AND NECK Biopsy, Excision (Soft Tissue, Other) 08/19/2020 12:09 PM [facility] OPERATOR 08/20/2020 6:05 AM [facility] M[facility] OPERATOR Comment:Pre-op diagnosis: TRACHEAL MASS, HOARSENESS, RIGHT VOCAL CORD PARALYSIS, LYMPHADENECTOMY HEAD AND NECK Biopsy, Excision SOFT TISSUE MASS / Unknown 08/19/2020 12:16 PM [facility] M[facility] OPERATOR 08/20/2020 6:05 AM [facility] M[facility] OPERATOR Comment:Pre-op diagnosis: TRACHEAL MASS, HOARSENESS, RIGHT VOCAL CORD PARALYSIS, LYMPHADENECTOMY HEAD AND NECK Biopsy, Excision (Parathyroid) 08/19/2020 12:19 PM [facility] M[facility] OPERATOR 08/20/2020 6:05 AM [facility] M[facility] OPERATOR Comment:Pre-op diagnosis: TRACHEAL MASS, HOARSENESS, RIGHT VOCAL CORD PARALYSIS, LYMPHADENECTOMY HEAD AND NECK Resection with Tumor ENTIRE LOBE OF THYROID GLAND / Unknown 08/19/2020 1:15 PM [facility] M[facility] OPERATOR 08/20/2020 6:05 AM [facility] M[facility] OPERATOR Comment:Pre-op diagnosis: TRACHEAL MASS, HOARSENESS, RIGHT VOCAL CORD PARALYSIS, LYMPHADENECTOMY HEAD AND NECK Biopsy, Excision ENTIRE TRACHEA / Unknown 08/19/2020 1:24 PM [facility] M[facility] OPERATOR 08/20/2020 6:05 AM [facility] M[facility] OPERATOR Comment:Pre-op diagnosis: TRACHEAL MASS, HOARSENESS, RIGHT VOCAL CORD PARALYSIS, LYMPHADENECTOMY HEAD AND NECK Biopsy, Excision ENTIRE TRACHEA / Unknown 08/19/2020 1:25 PM [facility] M[facility] OPERATOR 08/20/2020 6:05 AM [facility] M[facility] OPERATOR Comment:Pre-op diagnosis: TRACHEAL MASS, HOARSENESS, RIGHT VOCAL CORD PARALYSIS, LYMPHADENECTOMY HEAD AND NECK Dionte Comer MD LAB - PATHOLOGY/CYTO LOGY ORDERABLES [facility] [address] [place] [address], [facility] [phone] * TYPE + SCREEN PANEL (08/19/2020 6:18 AM [facility] M[facility] OPERATOR) Antibody Screen NEG 7:03 AM [facility] OPERATOR [facility] ABO Rh B POS 08/19/2020 7:03 AM [facility] M[facility] OPERATOR [facility] Blood Bank BLOOD SPECIMEN / Unknown Venipuncture / Unknown 08/19/2020 6:18 AM [facility] M[facility] OPERATOR 08/19/2020 6:25 AM [facility] OPERATOR Dionte Comer MD LAB - BLOOD BANK ORD ERABLES [facility] [address] [place] [address], [facility] [phone] documented in this encounter Visit Diagnoses Diagnosis [...] 8 hours. $ Given 08/29/2020 5:30 AM [facility] M[facility] OPERATOR 3 mL $ Given 08/28/2020 8:15 PM [facility] M[facility] OPERATOR 3 mL $ Given 08/28/2020 1:21 PM [facility] M[facility] OPERATOR 3 mL 0.9% NaCl injection 3 mL 3 mL, Intracatheter, EVERY 8 HOURS, First dose on 08/19/20 at 1700, Until Discontinued, Flush peripheral IV catheter with 3 mL of normal saline every 8 hours. $ Given 08/23/2020 8:25 PM [facility] OPERATOR 3 mL $ Given 08/23/2020 1:28 PM [facility] M[facility] OPERATOR 3 mL $ Given 08/23/2020 5:33 AM [facility] M[facility] OPERATOR 3 mL acetaminophen (TYLENOL) tablet 1,000 mg 1,000 mg, Oral, ONCE PRN, pain, 1 dose, Starting on Wed08/19/20 at 1626, Until Wed08/21/20 at 1127, For pain, if not given in OR if not given in last 6 hours., PACU $ Given 08/21/2020 11:27 AM [facility] OPERATOR 1,000 mg acetaminophen (TYLENOL) tablet 500 mg 500 mg, Enteral Tube, EVERY 6 HOURS, First dose on Wed08/19/20 at 1800, Until Discontinued $ Given 08/24/2020 12:00 PM [facility] OPERATOR 500 mg NG Tube $ Given 08/23/2020 11:54 PM [facility] M[facility] OPERATOR 500 mg N G Tube $ Given 08/23/2020 6:10 PM [facility] OPERATOR 500 mg NG Tube acetaminophen (TYLENOL) tablet 500 mg 500 mg, Oral, EVERY 6 HOURS, First dose (after last modification) on 08/24/20 at 1800, Until Discontinued $ Given 08/29/2020 5:29 AM [facility] OPERATOR 500 mg $ Given 08/28/2020 11:31 PM [facility] OPERATOR 500 mg $ Given 08/28/2020 5:21 PM [facility] M[facility] OPERATOR 500 mg albuterol-ipratropium (DUO-NEB) nebulizer solution 3 mL 3 mL, Inhalation, EVERY 4 HOURS PRN, Shortness of Breath, Wheezing, Starting on Wed08/26/20 at 1138, Until Josi 08/29/20 at 1230 atorvastatin (LIPITOR) tablet 40 mg 40 mg, Oral, AT BEDTIME, First dose on Wed08/19/20 at 2100, Until Discontinued $ Given 08/19/2020 8:41 PM [facility] M[facility] OPERATOR 40 mg atorvastatin (LIPITOR) tablet 40 mg 40 mg, Enteral Tube, AT BEDTIME, First dose (after last modification) on Wed08/20/20 at 2100, Until Discontinued $ Given 08/23/2020 8:28 PM [facility] OPERATOR 40 mg NG Tube $ Given 08/22/2020 8:15 PM [facility] M[facility] OPERATOR 40 mg NG Tube $ Given 08/21/2020 9:08 PM [facility] M[facility] OPERATOR 40 mg NG Tube atorvastatin (LIPITOR) tablet 40 mg 40 mg, Oral, AT BEDTIME, First dose (after last modification) on Wed08/24/20 at 2100, Until Discontinued $ Given 08/28/2020 8:15 PM [facility] OPERATOR 40 mg $ Given 08/27/2020 8:53 PM [facility] OPERATOR 40 mg $ Given 08/26/2020 8:03 PM [facility] OPERATOR 40 mg calcitriol (ROCALTROL) capsule 0.5 mcg 0.5 mcg, Oral, DAILY, First dose (after last modification) on Wed08/21/20 at 0900, Until Discontinued, Administer via G-tube if possible $ Given 08/21/2020 11:28 AM [facility] OPERATOR 0.5 mcg calcitriol (ROCALTROL) capsule 0.5 mcg 0.5 mcg, Oral, 2 TIMES DAILY, First dose (after last modification) on Wed08/21/20 at 2100, Until Discontinued, Administer via G-tube if possible $ Given 08/29/2020 9:05 AM [facility] M[facility] OPERATOR 0.5 mcg $ Given 08/28/2020 8:19 PM BU[facility] MILL OPERATOR 0.5 mcg $ Given 08/28/2020 8:50 AM [facility] M[facility] OPERATOR 0.5 mcg calcium carbonate (500mg Ca /5 mL) suspension 2,500 mg, Oral, 3 TIMES DAILY, First dose on Wed08/19/20 at 2100, Until Discontinued, Shake well before using. $ Given 08/19/2020 9:22 PM [facility] M[facility] OPERATOR 2,500 mg calcium carbonate (500mg Ca /5 mL) suspension 2,500 mg, Enteral Tube, 3 TIMES DAILY, First dose (after last modification) on Wed08/20/20 at 0900, Until Discontinued, Shake well before using. $ Given 08/20/2020 11:23 AM [facility] M[facility] OPERATOR 2,500 mg NG Tube calcium gluconate 1 g in dextrose 5 % 60 mL IVPB bolus 1 g, at 120 mL/hr, Intravenous, ONCE, 1 dose, On Wed08/20/20 at 0900 $ New Bag/Syringe 08/20/2020 9:22 AM [facility] M[facility] OPERATOR 1 g 120 mL/hr calcium gluconate 2 g in 100 mL NaCl 0.675% 2 g, at 100 mL/hr, Intravenous, ONCE, 1 dose, On Wed08/19/20 at 1930 $ New Bag/Syringe 08/19/2020 8:03 PM [facility] M[facility] OPERATOR 2 g 100 mL/hr calcium gluconate 2 g in 100 mL NaCl 0.675% 2 g, at 100 mL/hr, Intravenous, ONCE, 1 dose, On Wed08/25/20 at 1000 $ New Bag/Syringe 08/25/2020 1:06 PM [facility] M[facility] OPERATOR 2 g 100 mL/hr calcium gluconate 4 g in dextrose 5 % 1,040 mL IVPB Bolus 4 g, at 86.67 mL/hr, Intravenous, ONCE, 1 dose, On Wed08/20/20 at 1000, 4 gm in 1 L , run over 12 hours $ New Bag/Syringe 08/20/2020 10:00 AM [facility] M[facility] OPERATOR 4 g 86.67 mL/hr calcium gluconate 4 g in dextrose 5 % 1,040 mL IVPB Bolus 4 g, at 86.67 mL/hr, Intravenous, ONCE, 1 dose, On Wed08/21/20 at 1200, In 1 L d5 and run over 12 hours $ New Bag/Syringe 08/21/2020 12:17 PM [facility] M[facility] OPERATOR 4 g 86.67 mL/hr calcium gluconate 4 g in dextrose 5 % 1,040 mL IVPB Bolus 4 g, at 86.67 mL/hr, Intravenous, ONCE, 1 dose, On Wed08/23/20 at 1330, 4 gms in 1 L D5 over 12 hours $ New Bag/Syringe 08/23/2020 2:11 PM [facility] M[facility] OPERATOR 4 g 86.67 mL/hr calcium-vitamin D (OS-YANNICK 500 + D) 500-200 mg-unit tablet 1 tablet 1 tablet, Enteral Tube, 3 TIMES DAILY WITH MEALS, First dose on Wed08/20/20 at 1800, Until Discontinued $ Given 08/24/2020 12:01 PM [facility] M[facility] OPERATOR 1 tablet NG Tube $ Given 08/24/2020 8:40 AM [facility] M[facility] OPERATOR 1 tablet NG Tube $ Given 08/23/2020 6:10 PM BU[facility] M[facility] OPERATOR 1 tablet NG Tube calcium-vitamin D (OS-YANNICK 500 + D) 500-200 mg-unit tablet 1 tablet 1 tablet, Oral, 3 TIMES DAILY WITH MEALS, First dose (after last modification) on Wed08/24/20 at 1800, Until Discontinued $ Given 08/24/2020 5:07 PM [facility] M[facility] OPERATOR 1 tablet calcium-vitamin D (OS-YANNICK 500 + D) 500-200 mg-unit tablet 2 tablet 2 tablet, Oral, 3 TIMES DAILY WITH MEALS, First dose (after last modification) on Wed08/25/20 at 1200, Until Discontinued $ Given 08/29/2020 9:05 AM [facility] OPERATOR 2 tablets $ Given 08/28/2020 5:21 PM [facility] OPERATOR 2 tablets $ Given 08/28/2020 12:09 PM [facility] M[facility] OPERATOR 2 tablets clonazePAM (KlonoPIN) tablet 0.5 mg 0.5 mg, Oral, 2 TIMES DAILY, First dose on [facility] 08/19/20 at 2100, Until Discontinued $ Given 08/19/2020 8:41 PM [facility] M[facility] OPERATOR 0.5 mg clonazePAM (KlonoPIN) tablet 0.5 mg 0.5 mg, Enteral Tube, 2 TIMES DAILY, First dose (after last modification) on 08/20/20 at 0945, Until Discontinued $ Given 08/24/2020 8:38 AM [facility] OPERATOR 0.5 mg NG Tu be $ Given 08/23/2020 8:28 PM BU[facility] M[facility] OPERATOR 0.5 mg NG Tube $ Given 08/23/2020 8:14 AM BU[facility] M[facility] OPERATOR 0.5 mg NG Tube clonazePAM (KlonoPIN) tablet 0.5 mg 0.5 mg, Oral, 2 TIMES DAILY, First dose (after last modification) on [facility] 08/24/20 at 2100, Until Discontinued $ Given 08/29/2020 9:05 AM [facility] OPERATOR 0.5 mg $ Given 08/28/2020 8:15 PM BU[facility] M[facility] OPERATOR 0.5 mg $ Given 08/28/2020 8:50 AM [facility] M[facility] OPERATOR 0.5 mg dextrose 5% and 0.45% NaCl with KCl 20 mEq infusion at 100 mL/hr, Intravenous, CONTINUOUS, Starting on Wed08/19/20 at 1700, Until [facility] 08/22/20 at 1953, Post-op $ New Bag/Syringe 08/22/2020 6:48 PM [facility] M[facility] OPERATOR 1 00 mL/hr $ New Bag/Syringe 08/22/2020 4:15 AM [facility] M[facility] OPERATOR 100 mL /hr $ New Bag/Syringe 08/20/2020 8:26 PM BU[facility] M[facility] OPERATOR 100 mL /hr fentaNYL (PF) (SUBLIMAZE) injection 50 mcg 50 mcg, Intravenous, ONCE, 1 dose, On Wed08/20/20 at 0815 $ Given 08/20/2020 8:15 AM [facility] OPERATOR 50 mcg heparin injection 5,000 Units 5,000 Units, Subcutaneous, EVERY 8 HOURS, First dose on Wed08/20/20 at 0900, Until Discontinued $ Given 08/29/2020 5:30 AM [facility] M[facility] OPERATOR 5,000 Units Right Arm $ Given 08/28/2020 10:30 PM BU[facility] M[facility] OPERATOR 5,000 Units Right Arm $ Given 08/28/2020 1:19 PM BU[facility] M[facility] OPERATOR 5,000 Units L eft Arm ibuprofen (MOTRIN) tablet 400 mg 400 mg, Oral, EVERY 6 HOURS PRN, Mild Pain, Starting on 08/24/20 at 1312, Until Josi 08/29/20 at 1230, Maximum allowable amount = 3200 mg / 24 hours. $ Given 08/24/2020 5:01 PM [facility] M[facility] OPERATOR 400 mg levothyroxine (SYNTHROID) tablet 112 mcg 112 mcg, Enteral Tube, DAILY AT 0600, First dose on Wed08/21/20 at 0600, Until Discontinued, Take in the morning on an empty stomach. Do not give within 4 hours of antacids, iron or calcium supplements. $ Given 08/24/2020 4:13 AM BU[facility] M[facility] OPERATOR 112 mcg G Tube $ Given 08/23/2020 5:32 AM BU[facility] M[facility] OPERATOR 112 mcg NG Tube $ Given 08/22/2020 5:15 AM BU[facility] M[facility] OPERATOR 112 mcg NG Tube levothyroxine (SYNTHROID) tablet 112 mcg 112 mcg, Oral, DAILY AT 0600, First dose (after last modification) on Wed08/25/20 at 0600, Until Discontinued, Take in the morning on an empty stomach. Do not give within 4 hours of antacids, iron or calcium supplements. $ Given 08/29/2020 5:29 AM BU[facility] M[facility] OPERATOR 112 mcg $ Given 08/28/2020 5:36 AM BU[facility] M[facility] OPERATOR 112 mcg $ Given 08/27/2020 6:30 AM [facility] M[facility] OPERATOR 112 mcg magnesium sulfate 2 g in 50 mL bolus 2 g, at 25 mL/hr, Administer over 120 Minutes, Intravenous, ONCE, 1 dose, On Wed08/21/20 at 0530, Infuse at 1 gm/hr $ New Bag/Syringe 08/21/2020 5:26 AM BU[facility] M[facility] OPERATOR 2 g 25 mL/hr magnesium sulfate 2 g in 50 mL bolus 2 g, at 25 mL/hr, Administer over 120 Minutes, Intravenous, ONCE, 1 dose, On Josi 08/22/20 at 0545, Infuse at 1 gm/hr $ New Bag/Syringe 08/22/2020 7:28 AM BU[facility] M[facility] OPERATOR 2 g 25 mL/hr melatonin tablet 3 mg 3 mg, Enteral Tube, EVERY EVENING, First dose on Wed08/20/20 at 1845, Until Discontinued $ Given 08/21/2020 4:50 PM BU[facility] M[facility] OPERATOR 3 mg NG Tube $ Given 08/20/2020 8:26 PM BU[facility] MILL OPERATOR 3 mg NG Tube melatonin tablet 3 mg 3 mg, Oral, EVERY EVENING, First dose (after last modification) on 08/24/20 at 1700, Until Discontinued $ Given 08/27/2020 4:03 PM BU[facility] MILL OPERATOR 3 mg $ Given 08/26/2020 5:35 PM BU[facility] MILL OPERATOR 3 mg $ Given 08/25/2020 6:17 PM BU[facility] MILL OPERATOR 3 mg octreotide (SandoSTATIN) injection 100 mcg 100 mcg, Subcutaneous, 3 TIMES DAILY, First dose on 08/24/20 at 1700, Until Discontinued $ Given 08/29/2020 9:05 AM BU[facility] MILL OPERATOR 100 mcg Abd Left Lower Quadrant $ Given 08/28/2020 8:16 PM BU[facility] MILL OPERATOR 100 mcg Ri ght Arm $ Given 08/28/2020 1:19 PM BU[facility] MILL OPERATOR 100 mcg Le ft Arm ondansetron (ZOFRAN) injection 4 mg 4 mg, Intravenous, EVERY 6 HOURS PRN, Nausea/Vomiting, Starting on Wed08/19/20 at 1654, Until Josi 08/29/20 at 1230, Administer over 2 to 5 minutes. $ Given 08/21/2020 5:36 PM [facility] M[facility] OPERATOR 4 mg oxyCODONE (immediate release) (ROXICODONE) tablet 10 mg 10 mg, Enteral Tube, EVERY 4 HOURS PRN, Severe Pain, Starting on Wed08/19/20 at 1654, Until Wed08/20/20 at 0809 $ Given 08/20/2020 3:30 AM BU[facility] M[facility] OPERATOR 10 mg NG Tu be oxyCODONE (immediate release) (ROXICODONE) tablet 5 mg 5 mg, Enteral Tube, EVERY 4 HOURS PRN, Moderate Pain, Starting on Wed08/19/20 at 1654, Until Wed08/20/20 at 0809 $ Given 08/19/2020 8:41 PM BU[facility] MILL OPERATOR 5 mg NG Tube oxyCODONE (ROXICODONE) oral solution 5 mg 5 mg, Enteral Tube, EVERY 4 HOURS PRN, Severe Pain, Starting on Josi 08/22/20 at 1142, Until 08/24/20 at 1312 $ Given 08/24/2020 8:38 AM BU[facility] M[facility] OPERATOR 5 mg NG Tube $ Given 08/24/2020 4:13 AM BU[facility] MILL OPERATOR 5 mg NG Tube $ Given 08/23/2020 11:54 PM BU[facility] MILL OPERATOR 5 mg N G Tube oxyCODONE (ROXICODONE) oral solution 5 mg 5 mg, Oral, EVERY 4 HOURS PRN, Severe Pain, Starting on 08/24/20 at 1312, Until Wed08/29/20 at 1230 $ Given 08/29/2020 3:59 AM BU[facility] M[facility] OPERATOR 5 mg $ Given 08/28/2020 4:15 PM BU[facility] MILL OPERATOR 5 mg $ Given 08/28/2020 10:36 AM BU[facility] MILL OPERATOR 5 mg oxyCODONE (ROXICODONE) oral solution 7.5 mg 7.5 mg, Enteral Tube, EVERY 4 HOURS, First dose (after last modification) on Wed08/20/20 at 1200, Until Discontinued $ Given 08/22/2020 8:07 AM BU[facility] MILL OPERATOR 7.5 mg NG Tu be $ Given 08/22/2020 5:16 AM BUHR MILL OPERATOR 7.5 mg NG Tube $ Given 08/22/2020 1:06 AM BU[facility] MILL OPERATOR 7.5 mg NG Tube pantoprazole (PROTONIX) injection 40 mg 40 mg, Intravenous, DAILY, First dose on Wed08/20/20 at 1000, Until Discontinued, For every 40 mg of pantoprazole mix with 10 mL Normal Saline (final concentration = 4 mg/mL). Inject SLOWLY over 2 min. $ Given 08/28/2020 8:50 AM BU[facility] M[facility] OPERATOR 40 mg $ Given 08/27/2020 8:49 AM BU[facility] M[facility] OPERATOR 40 mg $ Given 08/26/2020 8:55 AM BU[facility] MILL OPERATOR 40 mg pantoprazole EC (PROTONIX) tablet 40 mg 40 mg, Oral, DAILY, First dose on Wed08/29/20 at 0900, Until Discontinued, Do not crush, chew, or cut in half. $ Given 08/29/2020 9:05 AM BU[facility] M[facility] OPERATOR 40 mg PARoxetine (PAXIL) tablet 40 mg 40 mg, Enteral Tube, DAILY, First dose (after last modification) on Wed08/20/20 at 0930, Until Discontinued $ Given 08/24/2020 8:40 AM BU[facility] M[facility] OPERATOR 40 mg NG Tube $ Given 08/23/2020 8:14 AM BU[facility] MILL OPERATOR 40 mg NG Tube $ Given 08/22/2020 8:07 AM BUHR MILL OPERATOR 40 mg NG Tube PARoxetine (PAXIL) tablet 40 mg 40 mg, Oral, DAILY, First dose (after last modification) on Wed08/25/20 at 0900, Until Discontinued $ Given 08/29/2020 9:05 AM BU[facility] MILL OPERATOR 40 mg $ Given 08/28/2020 8:50 AM BU[facility] MILL OPERATOR 40 mg $ Given 08/27/2020 8:49 AM BU[facility] MILL OPERATOR 40 mg polyethylene glycol 3350 (MIRALAX) packet 17 g 17 g, Oral, DAILY, First dose on Wed08/25/20 at 0900, Until Discontinued, Mix in 8 ounces of water, juice, soda, coffee or tea prior to administration HOLD FOR BM IN LAST 48 HRS $ Given 08/29/2020 9:05 AM BUHR MILL OPERATOR 17 g $ Given 08/27/2020 8:49 AM BU[facility] MILL OPERATOR 17 g $ Given 08/26/2020 8:56 AM BU[facility] MILL OPERATOR 17 g senna (SENOKOT) tablet 8.6 mg 8.6 mg, Enteral Tube, DAILY, First dose on Wed08/20/20 at 0900, Until Discontinued $ Given 08/24/2020 8:40 AM BU[facility] MILL OPERATOR 8.6 mg NG Tu be $ Given 08/23/2020 8:14 AM BUHR MILL OPERATOR 8.6 mg NG Tube $ Given 08/22/2020 8:07 AM BUHR MILL OPERATOR 8.6 mg NG Tube senna (SENOKOT) tablet 8.6 mg 8.6 mg, Oral, DAILY, First dose (after last modification) on Wed08/25/20 at 0900, Until Discontinued $ Given 08/29/2020 9:05 AM BUHR MILL OPERATOR 8.6 mg $ Given 08/27/2020 8:49 AM BUHR MILL OPERATOR 8.6 mg $ Given 08/26/2020 8:56 AM BUHR MILL OPERATOR 8.6 mg sodium chloride (Inhalant) 7 % nebulizer solution 4 mL 4 mL, Inhalation, 3 TIMES DAILY, First dose on Wed08/20/20 at 0900, Until Discontinued $ Given 08/20/2020 12:[address] 4 mL $ Given 08/20/2020 8:21 AM BUHR MILL OPERATOR 4 mL traZODone (DESYREL) tablet 50 mg 50 mg, Oral, AT BEDTIME, First dose on Wed08/19/20 at 2100, Until Discontinued $ Given 08/19/2020 8:41 PM BUHR MILL OPERATOR 50 mg traZODone (DESYREL) tablet 50 mg 50 mg, Enteral Tube, AT BEDTIME, First dose (after last modification) on Wed08/20/20 at 2100, Until Discontinued $ Given 08/23/2020 8:28 PM BUHR MILL OPERATOR 50 mg NG Tube $ Given 08/22/2020 8:16 PM BUHR MILL OPERATOR 50 mg NG Tube $ Given 08/21/2020 9:07 PM BUHR MILL OPERATOR 50 mg NG Tube traZODone (DESYREL) tablet 50 mg 50 mg, Oral, AT BEDTIME, First dose (after last modification) on 08/24/20 at 2100, Until Discontinued $ Given 08/28/2020 8:15 PM BUHR MILL OPERATOR 50 mg $ Given 08/27/2020 8:53 PM BUHR MILL OPERATOR 50 mg $ Given 08/26/2020 8:03 PM BU[facility] MILL OPERATOR 50 mg documented in this encounter Active and Recently Administered Medications Times are shown in BUHR MILL OPERATOR. Scheduled Medication Order 08/27/2020 08/28/2020 08/29/2020 0.9% [...] RN)1321 ($ Given - Provider: Vincent Bird, JOSY)2015 ($ Given - Provider: Daiana Garcia RN) 0530 ($ Given - Provider: Daiana Garcia RN) acetaminophen (TYLENOL) tablet 500 mg 500 mg, Oral, EVERY 6 HOURS, First dose (after last modification) on 08/24/20 at 1800, Until Discontinued 0044 (Not Administered - Provider: Daiana Garcia RN - Reason: Patient sleeping)0630 ($ Given - Provider: Daiana Garcia RN)1158 ($ Given - Provider: Christa Crawford, JOSY)1752 ($ Given - Provider: Christa Crawford RN) [...] ($ Given - Provider: Nader Ross, JOSY) calcium-vitamin D (OS-YANNICK 500 + D) 500-200 [...] DAILY, First dose (after last modification) on 08/24/20 at 2100, Until Discontinued 0849 ($ Given [...] RN)1401 ($ Given - Provider: Christa Crawford RN)205 [...] RN)1401 ($ Given - Provider: Christa Crawford RN)205 ($ Given - Provider: Kathleen Bates RN) 0850 ($ Given - Provider: Vincent Bird, JOSY)1319 ($ Given - Provider: Vincent Bird, JOSY)2015 ($ Given - Provider: Daiana Garcia RN) 0905 ($ Given - Provider: Nader Ross RN) pantoprazole (PROTONIX) injection 40 mg (CANCELED) 40 mg, Intravenous, DAILY, First dose on 08/20/20 at 1000, Until Discontinued, For every 40 [...] 1230 0438 ($ Given - Provider: Daiana Garcia, JOSY)1603 ($ Given - Provider: Christa Crawford, JOSY)2245 ($ Given - Provider: Kathleen Bates RN) 1036 ($ Given - Provider: Vincent Bird, JOSY)1615 ($ Given - Provider: Vincent Bird, RN) 0359 ($ Given - Provider: Daiana Garcia, JOSY) prochlorperazine (COMPAZINE) injection 10 mg 10 mg, Intravenous, EVERY 6 HOURS PRN, Nausea/Vomiting, Starting on 08/19/20 at 1654, Until Josi 08/29/20 at 1230, Max intravenous rate = 5 mg/min Linked Groups Order Group 1: SALINE LOCK, INSERT AND MAINTAIN (CANCELED) Routine, CONTINUOUS, Starting on [place] 08/18/20 at 1515, Until Specified, New collection And 0.9% NaCl injection 3 mLJump to med 3 mL, Intracatheter, EVERY 8 HOURS, First dose on [place] 08/18/20 at 1545, Until Discontinued, Flush peripheral IV catheter with 3 mL of normal saline every 8 hours. And 0.9% NaCl injection 1-10 mLJump to med 1-10 mL, Intracatheter, PRN, Other, peripheral line flush, Starting on [place] 08/18/20 at 1512, Until Josi 08/29/20 at 1230, Flush peripheral IV catheter with 1-10 mL of normal saline before and after medications and prn to clear blood from the line or to verify patency. documented in this encounter Care Teams [employer] Relationship Specialty Start Date End Date Taniya Grimes MD [address] [facility] [place] [address] PCP - General 07/01/20 05/10/22 Marylu Marie DO [address] [facility] [place] [address] Resident - PCP Student Resident 06/26/20 01/11/22 documented as of this encounter
--- OUTSIDE RECORDS SUMMARY | 2024-07-26 08:44 | XMS_ITS | Encounter Summary ---
Author Organization [facility] Address [address] [facility] [place] [address] Care Team Providers Care Building Manager Name Role Phone FrankKathiMarylu DO Unavailable Taniya rGimes MD Primary Care Provider Reason for Referral * Radiology Services (Routine) - Closed Specialty Diagnoses / Procedures Referred By Yuan robins Referred To Contact CT Scan Diagnoses Neck mass Procedures CT NECK SOFT TISSUE W CONT Nolvia Chun APRN-CNP [address] [place] [address] [facility] [address] [place] [address] Referral ID Status Reason Start Date Expiration Date Visits Re quested Visits Authorized [id number] Closed 07/17/2020 01/13/2021 1 1 TS SPECIALIST Encounter Details Date Type Department Care Team (Late st Contact Info) Description 07/15/2020 Orders Only [facility] [address] [place] [address] Nolvia Chun APRN-CNP [address] [place], [place] [phone] Neck mass Social History Tobacco Use Types [...] COVID-19? No / Unsure 07/02/2020 12:45 PM GRANTS SPECIALIST documented as of this encounter Plan of Treatment Upcoming Encounters Date Type Department Care Team (Late st Contact Info) Description 08/02/2024 2:20 PM GRANTS SPECIALIST Appointment [facility] [address] [place] [address] 08/02/2024 3:00 PM GRANTS SPECIALIST Office Visit [facility] - Hematology/Oncology [address] [place] [phone] Remi Beckett MD [address] [place] [phone] 08/18/2024 1:45 PM GRANTS SPECIALIST Office Visit [facility] - ENT [address] [place] [phone] Neri Delgado MD [address] [place] [phone] 08/30/2024 2:20 PM GRANTS SPECIALIST Appointment [facility] [address] [place] [phone] documented as of this encounter Results * CT NECK SOFT TISSUE W CONT (07/24/2020 2:46 PM GRANTS SPECIALIST) Anatomical Region Laterality Modality Head Computed Tomogra phy 07/24/2020 2:54 PM GRANTS SPECIALIST Impressions 07/24/2020 3:16 PM GRANTS SPECIALIST IMPRESSION: 1. A mildly enlarged left level [...] 3:16 PM . Narrative 07/24/2020 3:16 PM GRANTS SPECIALIST EXAMINATION: ??Computed tomography (CT) of the neck [...] on 07/24/2020 3:16 PM . Nolvia Chun APRN-ROTATIONAL MOULDING OPERATOR CT ORDERABLES documented in this encounter Visit Diagnoses Diagnosis Neck mass- Primary Swelling, mass, or lump in head and neck Neck mass Swelling, mass, or lump in head and neck documented in this encounter Care Teams Building Manager Relationship Specialty Start Date End Date Taniya Grimes MD [address] [place] [address] PCP - General 07/01/20 05/10/22 Marylu Marie DO [address] DIV OF [facility] [place] [address] Resident - PCP Student Resident 06/26/20 01/11/22 documented as of this encounter
--- OUTSIDE RECORDS SUMMARY | 2024-07-26 08:44 | XMS_ITS | Encounter Summary ---
Author Organization [facility] Address [address] [facility] [place] [address] Care Team Providers Care Photographer Apprentice Lithographic Name Role Phone Unavailable Primary Care Provider Unavailabl e Reason for Visit * Radiology Services (Routine) - Closed Specialty Diagnoses / Procedures Referred By Contac t Referred To Contact Ultrasound Diagnoses Thyroid nodule Procedures CT GUIDED NEEDLE BIOPSY THYROID (84185) US THYROID FNA Taniya Grimes MD [address] [facility] 2[address] DIV OF [facility] [place] [address] [facility] [address] [place] [address] Referral ID Status Reason Start Date Expiration Date Visits Re quested Visits Authorized [id number] Closed 03/27/2020 06/26/2020 1 1 Encounter Details Date Type Department Care Team (Latest Contact Info) Description 04/18/2020 12:42 PM CDT - 04/18/2020 4:59 PM CDT Hospital Encounter [facility] [address] [place] [phone] Taniya Grimes MD [address] [facility] [address] DIV OF [facility] [place] [address] Mina Rodas MD [address] [phone] [facility] Discharge Disposition: Home or Self [...] fluticasone propionate (FLONASE) 50 MCG/ACT nasal spray [place] 2 sprays into each nostril 16 g [...] of Function 60 tablet 2 02/27/2020 07/16/2020 Aubrey-3 Fatty Acids (FISH OIL) 1000 MG capsule [...] fluticasone propionate (FLONASE) 50 MCG/ACT nasal spray [place] 2 sprays into each nostril 16 g [...] Loss of Function 60 tablet 2 ??? Aubrey-3 Fatty Acids (FISH OIL) 1000 MG capsule [...] results for input(s): INR in the last 37968 hours. Recent Labs Component Name 03/07/20 1519 [...] thyroid nodule FNA. MEG QUARLES M.D; [place]ER jewel diameter gauger Chief, Vascular and Interventional Radiology Page: [phone] documented in this encounter OR Notes * Brief Op Note - Meg Quarles MD - 04/18/2020 4:04 PM CDT Vascular & Interventional Radiology Brief Post-Procedure Note Patient: Brisa Hogan Attending: Meg Quarles MD Admissions Nurse: Kartik Greer MS4 Diagnosis/Indication: Right thyroid nodule [...] st Contact Info) Description 08/02/2024 2:20 PM POLITICAL SCIENCE FACULTY MEMBER Appointment [facility] [address] [place] [address] 08/02/2024 3:00 PM POLITICAL SCIENCE FACULTY MEMBER Office Visit [facility] - Hematology/Oncology [address] [place] [address] Remi Beckett MD [address] [place] [address] 08/18/2024 1:45 PM POLITICAL SCIENCE FACULTY MEMBER Office Visit [facility] - ENT [address] [place] [address] Neri Delgado MD [address] [place] [address] 08/30/2024 2:20 PM POLITICAL SCIENCE FACULTY MEMBER Appointment [facility] [address] [place] [address] documented as of this encounter Procedures Procedure Name Priority Date/Time Associated Diagnosis Comments CT GUIDED NEEDLE PLACEMENT Routine 04/18/2020 4:07 PM CDT Thyroid nodule FINE NEEDLE ASPIRATION - THYROID (STL) Routine 04/18/2020 4:07 PM CDT Thyroid nodule documented in this encounter Results * CT GUIDED NEEDLE BIOPSY THYROID (68204) (04/18/2020 4:07 PM CDT) Anatomical Region Laterality [...] 5), was referred for ultrasound-guided fine-needle aspiration. Supervisor Pipelines: Dr. Milan Quarles, Attending Physician Anesthesia: Local [...] (TR 5), wasreferred for ultrasound-guided fine-needle aspiration. Supervisor Pipelines: Dr. Milan Quarles, Attending Physician Anesthesia: Local [...] Case Report Medical Cytology Report ? Case: [id number] ? Authorizing Provider: ??Meg Quarles MD Collected: ? 04/18/2020 04:07 PM ? Ordering Location: ? [facility] ?Received: ?04/19/2020 07:09 AM ? Pathologist: ? Juli Dick MD ? Specimen: ?Thyroid, Right nodule ? 04/22/2020 11:14 AM [facility] Specimen Adequacy Adequate cellularity for evaluation. 04/22/2020 11:14 AM [facility] Final Diagnosis Thyroid nodule, right, US-FNA: - Benign - Consistent with benign follicular nodule 04/22/2020 11:14 AM [facility] Clinical History Thyroid nodule 04/22/2020 11:14 AM [facility] Gross Description 1 pap stained slide and 1 cell block from 30cc collection fluid. 04/22/2020 11:14 AM [facility] Microscopic Description Many follicular cells clusters with many of them showing Hurthle cell changes. Abundant colloid. Scant macrophages. 04/22/2020 11:14 AM CDT [facility] Disclaimer The performance characteristics of all immunohistochemical and indirect immunofluorescence stains (if any) cited in this report were determined by the Histopathology Laboratory of [facility]. Some of these tests rely on the use of analyte-specific reagents and are subject to specific labeling requirements by the [place] Food and Drug Administration. Such tests were developed by the Histology Laboratory of [facility] and have not been cleared or approved [...] the attending (teaching) pathologist. 04/22/2020 11:14 AM CDT [facility] Embedded Images 04/22/2020 11:14 AM CDT [facility] Pathology/Cytolo gy SPECIMEN FROM THYROID OBTAINED BY THYROIDECTOMY / Unknown Collection / Unknown 04/18/2020 4:07 PM CDT 04/19/2020 7:09 AM CDT Meg Quarles MD LAB - PATHOLOGY/C YTOLOGY ORDERABLES [facility] [address] [phone] documented in this encounter Visit Diagnoses Diagnosis [...]
--- OUTSIDE RECORDS SUMMARY | 2024-07-26 08:44 | XMS_ITS | Encounter Summary ---
Author Organization [facility] Address [address] [facility] [place] [address] Care Team Providers Care Bilingual Call Center Representative Name Role Phone Marylu Marie DO Unavailable Taniya Grimes MD Primary Care Provider Reason for Visit * Reason Comments Abnormal Imaging Encounter Details Date Type Department Care Team (Late st Contact Info) Description 07/11/2020 3:30 PM COPIER FIELD SERVICE TECHNICIAN Video Visit [facility] [address] [place] [address], [place] [phone] Marylu Marie DO [address] [place] [address] [place] [address] Thyroid nodule ; Hemoptysis; Tobacco use disorder [...] COVID-19? No / Unsure 07/02/2020 12:45 PM COPIER FIELD SERVICE TECHNICIAN documented as of this encounter Progress Notes [...] regardin. Thyroid nodule Medical records obtained from [facility] and under media tab of patient's chart. Previously biopsied nodule measuring 1.8 x 1.5 x 1.3cm in 03/2020, now with noted paratracheal mass on CT PE atOSH of 2.8 x 2.6cm as of 07/2020. Interval development of dysphagia and hoarseness. - Personally spoke with supervisor mold construction ENT to discuss case. Their office will [...] hemoptysis, small clot when coughing. Went to [facility] ED where they performed CXR which showed [...] provided verbal consent to obtain records from [facility] for ER visit dated 07/05. Of note [...] TR 4 nodule, recommend short-term follow-up (image [id number]). The second nodule is well-circumscribed, hypoechoic, solid nodule, measuring 0.6 x 0.6 x 0.3 cm; this is a TR 4 nodule, which is not suspicious (image [id number]). ?? The isthmus is mildly thickened. Vascularity of the thyroid is normal. FNA 04/18/2020 Specimen Adequacy Adequate cellularity for evaluation. Final Diagnosis Thyroid nodule, right, US-FNA: - Benign - Consistent with benign follicular nodule Marylu Marie DO ER FIELD SERVICE TECHNICIAN Associated attestation - Taniya Grimes MD - 07/11/2020 10:43 PM COPIER FIELD SERVICE TECHNICIAN The supervising physician and/or patient is not [...] st Contact Info) Description 08/02/2024 2:20 PM COPIER FIELD SERVICE TECHNICIAN Appointment [facility] [address] [place] [address] 08/02/2024 3:00 PM COPIER FIELD SERVICE TECHNICIAN Office Visit [facility] - Hematology/Oncology [address] [place] [phone] Remi Beckett MD [address] [place] [phone] 08/18/2024 1:45 PM COPIER FIELD SERVICE TECHNICIAN Office Visit [facility] - ENT [address] [place] [phone] Neri Delgado MD [address] [place] [address] 08/30/2024 2:20 PM COPIER FIELD SERVICE TECHNICIAN Appointment [facility] [address] [place] [address] documented as of this encounter Visit Diagnoses Diagnosis Thyroid nodule- Primary Nontoxic uninodular goiter Hemoptysis Tobacco use disorder documented in this encounter Care Teams Bilingual Call Center Representative Relationship Specialty Start Date End Date Taniya Grimes MD [address] DIV OF [facility] [place] [address] PCP - General 07/01/20 05/10/22 Marylu Marie DO [address] DIV OF [facility] [place] [address] Resident - PCP Student Resident 06/26/20 01/11/22 documented as of this encounter
--- OUTSIDE RECORDS SUMMARY | 2024-07-26 08:44 | XMS_ITS | Encounter Summary ---
Author Organization [facility] Address [address] [facility] [place] [address] Care Team Providers Care Fiberglass Roving Winder Name Role Phone [place] ColonyMarylu jerry DO Unavailable [phone] Taniya Grimes MD Primary Care Provider Reason for Visit * Reason Onset Date Comments Appointment 2020 Encounter Details Date Type Department Care Team (Late st Contact Info) Description 2020 Telephone [facility] - [facility]ics [address] [place] [phone] Kendra Garay Appointment Social History Tobacco Use [...] COVID-19? No / Unsure 07/26/2020 11:45 AM CONCRETER documented as of this encounter Miscellaneous Notes * Telephone Encounter - Kendra Garay - 2020 2:16 PM CST Spoke with the patient about rescheduling her Wednesday08/06/2020 3:15 pm appointment. Patient states that she is having surgery on 08/19/2020 and will call back after that to reschedule. RETER documented in this encounter Plan of Treatment Upcoming Encounters Date Type Department Care Team (Late st Contact Info) Description 08/02/2024 2:20 PM CONCRETER Appointment [facility] [address] [place] [address] 08/02/2024 3:00 PM CONCRETER Office Visit [facility] - Hematology/Oncology [address] [place] [phone] Remi Beckett MD [address] [place] [phone] 08/18/2024 1:45 PM CONCRETER Office Visit [facility] - ENT [address] [place] [phone] Neri Delgado MD [address] [place] [address] 08/30/2024 2:20 PM CONCRETER Appointment [facility] [address] [place] [address] documented as of this encounter Visit Diagnoses Not on filedocumented in this encounter Care Teams Fiberglass Roving Winder Relationship Specialty Start Date End Date Taniya Grimes MD [address] [place] [address] [facility] [place] [address] PCP - General 07/01/20 05/10/22 Marylu Marie DO [address] [place] [address] [facility] [place] [place] [address] Resident - PCP Student Resident 06/26/20 01/11/22 documented as of this encounter
--- OUTSIDE RECORDS SUMMARY | 2024-07-26 08:44 | XMS_ITS | Encounter Summary ---
Author Organization [facility] Address [address] [place] [address] Care Team Providers Care Technical Training Instructor Name Role Phone Marylu Marie DO Unavailable [phone] Taniya Grimes MD Primary Care Provider Reason for Visit * Reason Onset Date Comments Results 06/26/2020 Encounter Details Date Type Department Care Team (Late st Contact Info) Description 06/26/2020 Telephone [facility] [address] [place] [address] Marylu Marie DO [address] OF [facility] [place] [address] Results Social History Tobacco Use Types Packs/Day [...] Esther Branch RN - 07/02/2020 10:20 AM ENGINEERING MODEL MAKER Pt calling to inform pcp that her Covid test from 06/29 resulted negative. NEERING MODEL MAKER * Telephone Encounter - Marylu Marie DO [...] resulted. Marylu Marie DO 06/26/2020 2:59 PM NEERING MODEL MAKER documented in this encounter Plan of Treatment Upcoming Encounters Date Type Department Care Team (Late st Contact Info) Description 08/02/2024 2:20 PM ENGINEERING MODEL MAKER Appointment [facility] [address] [place] [address] 08/02/2024 3:00 PM ENGINEERING MODEL MAKER Office Visit [facility] - Hematology/Oncology [address] [place] [phone] Remi Beckett MD [address] [place] [phone] 08/18/2024 1:45 PM ENGINEERING MODEL MAKER Office Visit [facility] - ENT [address] [place] [phone] Neri Delgado MD [address] [place] [address] 08/30/2024 2:20 PM ENGINEERING MODEL MAKER Appointment [facility] [address] [place] [address] documented as of this encounter Visit Diagnoses Not on filedocumented in this encounter Care Teams Technical Training Instructor Relationship Specialty Start Date End Date Taniya Grimes MD [address] [place] [address] OF [facility] [place] [phone] PCP - General 07/01/20 05/10/22 Marylu Marie DO [address] [place] [address] Resident - PCP Student Resident 06/26/20 01/11/22 documented as of this encounter
--- OUTSIDE RECORDS SUMMARY | 2024-07-26 08:44 | XMS_ITS | Encounter Summary ---
Author Organization [facility] Address [address] [facility] [place] [address] Care Team Providers Care Sap Crm Developer Name Role Phone RendonMarylu jerry DO Unavailable Taniya Grimes MD Primary Care Provider Reason for Referral * Radiology Services (Routine) - Closed Specialty Diagnoses / Procedures Referred By Contac t Referred To Contact CT Scan Diagnoses Right foot pain Procedures MRI FOOT RIGHT WO CONTRAST Samantha Nuñez PA No Information available Referral ID Status Reason Start Date Expiration Date Visits Re quested Visits Authorized [id number] Closed 06/04/2020 12/01/2020 1 1 SPECIALIST Reason for Visit * Radiology Services (Routine) - Closed Specialty Diagnoses / Procedures Referred By Contac t Referred To Contact CT Scan Diagnoses Right foot pain Procedures MRI FOOT RIGHT WO CONTRAST Samantha Nuñez PA No Information available Referral ID Status Reason Start Date Expiration Date Visits Re quested Visits Authorized [id number] Closed 06/04/2020 12/01/2020 1 1 Encounter Details Date Type Department Care Team (Late st Contact Info) Description 07/02/2020 12:54 PM NEWS SPECIALIST - 07/02/2020 11:59 PM NEWS SPECIALIST Hospital Encounter [facility] MRI [address] [place] [address] Samantha Nuñez PA No Information available Discharge [...] COVID-19? No / Unsure 07/02/2020 12:45 PM NEWS SPECIALIST documented as of this encounter Medications at [...] fluticasone propionate (FLONASE) 50 MCG/ACT nasal spray [place] 2 sprays into each nostril 16 g [...] of Function 60 tablet 2 02/27/2020 07/16/2020 [place]-3 Fatty Acids (FISH OIL) 1000 MG capsule [...] st Contact Info) Description 08/02/2024 2:20 PM NEWS SPECIALIST Appointment [facility] [address] [place] [address] 08/02/2024 3:00 PM NEWS SPECIALIST Office Visit [facility] - Hematology/Oncology [address] [place] [phone] Remi Beckett MD [address] [place] [phone] 08/18/2024 1:45 PM NEWS SPECIALIST Office Visit [facility] - ENT [address] [place] [phone] Neri Delgado MD [address] [place] [address] 08/30/2024 2:20 PM NEWS SPECIALIST Appointment [facility] [address] [place] [address] documented as of this encounter Procedures Procedure Name Priority Date/Time Associated Diagnosis Comments MRI FOOT RIGHT WO CONTRAST Routine 07/02/2020 1:48 PM NEWS SPECIALIST Right foot pain documented in this encounter Results * MRI FOOT RIGHT WO CONTRAST (07/02/2020 1:48 PM NEWS SPECIALIST) Anatomical Region Laterality Modality Ankle / Foot Magnetic Resonan ce 07/02/2020 2:35 PM NEWS SPECIALIST Impressions 07/02/2020 3:19 PM NEWS SPECIALIST IMPRESSION: 1. No fracture or stress [...] 3:19 PM . Narrative 07/02/2020 3:19 PM NEWS SPECIALIST Exam: ??MRI FOOT RIGHT WO CONTRAST History: ??M79.671: Right foot pain . Persistent pain in the second metatarsal, bursitis versus fracture versus Aceves neuroma Comparison: Right foot Radiographs dated 04/02/2020 TECHNIQUE: Images were obtained in the axial, sagittal, and coronal planes using T1 and fluid sensitive fat suppressed sequences without contrast. The [id number] was set to evaluate the area of [...] sensitive fat suppressed sequences without contrast. The [id number] was set to evaluate the area of [...] limb documented in this encounter Care Teams Sap Crm Developer Relationship Specialty Start Date End Date Taniya Grimes MD [address] [place] [address] PCP - General 07/01/20 05/10/22 Marylu Marie DO [address] [place] [address] Resident - PCP Student Resident 06/26/20 01/11/22 documented as of this encounter
--- OUTSIDE RECORDS SUMMARY | 2024-07-26 08:44 | XMS_ITS | Encounter Summary ---
Author Organization [facility] Address [address] [place] [address] Care Team Providers Care Online Merchandising Specialist Name Role Phone Marylu Marie DO Unavailable [phone] Taniya Grimes MD Primary Care Provider [phone] Reason for Referral * Radiology Services (Routine) - Closed Specialty Diagnoses / Procedures Referred By Contac t Referred To Contact Interventional Radiology Diagnoses Thyroid nodule Procedures US THYROID FNA Dionte Comer MD [facility] 2L [place] [address] [facility] Ivr [address] [place] [address] Referral ID Status Reason Start Date Expiration Date Visits Re quested Visits Authorized [id number] Closed 07/26/2020 10/24/2020 1 1 ER POWDER BLENDER Encounter Details Date Type Department Care Team (Late st Contact Info) Description 07/26/2020 Orders Only [facility] CSM [address] [facility], [place] [address] Brandi Mock APRN-SARAH [address] [facility] FIRST LEVEL [place] [address] Thyroid nodule Social History Tobacco [...] COVID-19? No / Unsure 07/02/2020 12:45 PM TRACER POWDER BLENDER documented as of this encounter Plan of Treatment Upcoming Encounters Date Type Department Care Team (Late st Contact Info) Description 08/02/2024 2:20 PM TRACER POWDER BLENDER Appointment [facility] [address] [place] [address] 08/02/2024 3:00 PM TRACER POWDER BLENDER Office Visit [facility] - Hematology/Oncology [address] [place] [phone] Remi Beckett MD [address] [place] [phone] 08/18/2024 1:45 PM TRACER POWDER BLENDER Office Visit [facility] - ENT [address] [place] [phone] Neri Delgado MD [address] [place] [phone] 08/30/2024 2:20 PM TRACER POWDER BLENDER Appointment [facility] [address] [place] [address] documented as of this encounter Results * US THYROID FNA (08/01/2020 2:41 PM TRACER POWDER BLENDER) Anatomical Region Laterality Modality X-Ray Angiograph y 08/01/2020 2:59 PM TRACER POWDER BLENDER Impressions 08/11/2020 6:37 PM TRACER POWDER BLENDER Impression: Ultrasound-guided fine needle aspiration of a right thyroid nodule, as described above.The pathology report is pending at the time of this dictation. I, Dr. Maryse Wright, was present and performed/supervised the entire procedure. Dictated by Molly Rao M.D. (vice president of talent acquisition) I, Dr. MARYSE WRIGHT M.D. have personally reviewed and interpreted this examination/study. This report was electronically signed by MARYSE WRIGHT M.D. ??on 08/11/2020 6:37 PM . Narrative 08/11/2020 6:37 PM TRACER POWDER BLENDER History: 60 year oldfemalerecemtly found to have [...] is pending at the timeof this dictation. I, Dr. Maryse Wright, was present and performed/supervised the entire procedure. Dictated by Molly Rao M.D. (vice president of talent acquisition) IDr. MARYSE M.D. have personally reviewed and interpreted this examination/study. This report was electronically signed by MARYSE WRIGHT M.D. on08/11/2020 6:37 PM . Dionte Comer MD ORDERABLES documented in this encounter Visit Diagnoses Diagnosis Thyroid nodule- Primary Nontoxic uninodular goiter Thyroid nodule Nontoxic uninodular goiter documented in this encounter Care Teams Online Merchandising Specialist Relationship Specialty Start Date End Date Taniya Grimes MD [address] 2[address] DIV OF [facility] [place] [address] PCP - General 07/01/20 05/10/22 Marylu Marie DO [address] 2[address] DIV OF [facility] [place] [address] Resident - PCP Student Resident 06/26/20 01/11/22 documented as of this encounter
--- OUTSIDE RECORDS SUMMARY | 2024-07-26 08:44 | XMS_ITS | Encounter Summary ---
Author Organization [facility] Address [address] [facility] [place] [address] Care Team Providers Care Sketcher Name Role Phone Marylu Marie DO Unavailable Taniya Grimes MD Primary Care Provider Reason for Visit * Auth/Cert Specialty Diagnoses / Procedures Referred By Contac t Referred To Contact Diagnoses Thyroid nodule Procedures US THYROID FNA Referral ID Status Reason Start Date Expiration Date Visits Re quested Visits Authorized [id number] 1 1 Encounter Details Date Type Department Care Team (Latest Contact Info) Description 08/01/2020 2:00 PM LAND SURVEYING SURVEY WORKER - 08/01/2020 4:14 PM [facility] Hospital Encounter [facility] PAT [address] [place] [address] Dionte Comer MD [facility] [place] [address] Marcela Goodrich MD [facility] [address] [phone] Discharge Disposition: Home or Self [...] Removal Peripheral IV Date: 08/19/20; Time : 06; Orientation: Left; Placed By: JOSY Buchanan; Tolerance: [...] MD; 1; Channel; Bulb; 19 Fr.; Bard; [id number]; [id number]; Right; Neck; General Anesthesia; 08/28/20; 1611; ENT 08/19/20 1507 by Sangita Barrow RN 08/28/20 1611 by Vincent Bird RN Drain 08/19/20; 1507; Ana pierre MD; 2; Channel; Bulb; 19 Fr.; Bard; [id number]; [id number]; Left; Neck; General Anesthesia; 08/29/20; 1133 08/19/20 1507 by Sangita Barrow RN 08/29/20 1133 by Nader Ross RN Drain 08/19/20; 1508; Ana pierre MD; 3; Open; None; 0.25in; [facility]; [place]; Other (Comment) (Central); Neck; General Anesthesia; 08/28/20; [...] COVID-19? No / Unsure 07/26/2020 11:45 AM LAND SURVEYING SURVEY WORKER documented as of this encounter Last Filed Vital Signs Vital Sign Reading Time Taken Comments Blood Pressure 144/76 08/01/2020 3:44 PM LAND SURVEYING SURVEY WORKER Pulse 63 08/01/2020 3:44 PM LAND SURVEYING SURVEY WORKER Temperature 36.3 ??C (97.3 ??F) 08/01/2020 3:44 PM CS T Respiratory Rate 16 08/01/2020 3:44 PM LAND SURVEYING SURVEY WORKER Oxygen Saturation 98% 08/01/2020 3:44 PM LAND SURVEYING SURVEY WORKER Inhaled Oxygen Concentration - - Weight 70.3 kg (154 lb 14.4 oz) 08/01/2020 3:44 PM LAND SURVEYING SURVEY WORKER Height 154.9 cm (5' 1) 08/01/2020 3:44 PM LAND SURVEYING SURVEY WORKER Body Mass Index 29.27 08/01/2020 3:44 PM LAND SURVEYING SURVEY WORKER documented in this encounter Functional Status Functional [...] by mouth as needed 01/13/2021 albuterol HFA (PROVENTIL;VENTOLIN;WA OAIR) 108 (90 Base) MCG/ACT inhaler Inhale [...] times daily 30 capsule 1 08/29/2020 10/03/2020 qzminrv-jfworqoux-tria 333-133-5 MG tablet Take 1 tablet by [...] fluticasone propionate (FLONASE) 50 MCG/ACT nasal spray [place] 2 sprays into each nostril 16 g 09/06/2019 04/11/2021 gabapentin (NEURONTIN) 300 MG capsuleIndications:Nicole favio osteoarthritis of left hip TAKE 1 CAPSULE BY MOUTH THREE TIMES A DAY 90 capsule 5 03/08/2020 09/06/2020 QMSHOU-JETAIATQB-IRH-C -HYAL PO Take 1 tablet by mouth 3 times daily 06/13/2023 levothyroxine (SYNTHROID) 112 MCG tablet Take 1 (one) tablet by mouth once daily 30 tablet 1 08/30/2020 10/14/2020 meloxicam (MOBIC) 7.5 MG tablet TAKE 1 TABLET BY MOUTH EVERY DAY 60 tablet 2 07/16/2020 01/13/2021 [place]-3 Fatty Acids (FISH OIL) 1000 MG capsule [...] st Contact Info) Description 08/02/2024 2:20 PM LAND SURVEYING SURVEY WORKER Appointment [facility] [address] [place] [phone] 08/02/2024 3:00 PM LAND SURVEYING SURVEY WORKER Office Visit [facility] Physician Group - Hematology/Oncology [address] [place] [phone] Remi Beckett MD [address] [place] [phone] 08/18/2024 1:45 PM LAND SURVEYING SURVEY WORKER Office Visit [facility] Physician Group - ENT [address] [place] [phone] Neri Delgado MD [address] [place] [address] 08/30/2024 2:20 PM LAND SURVEYING SURVEY WORKER Appointment [facility] [address] [place] [phone] documented as of this encounter Visit Diagnoses Diagnosis Pre-op evaluation- Primary Preoperative examination, unspecified documented in this encounter Care Teams Sketcher Relationship Specialty Start Date End Date Taniya Grimes MD [address] [place] [address] OF [facility] [place] [phone] PCP - General 07/01/20 05/10/22 Marylu Marie DO [facility] [address] OF [facility] [place] [address] Resident - PCP Student Resident 06/26/20 01/11/22 documented as of this encounter
--- OUTSIDE RECORDS SUMMARY | 2024-07-26 08:44 | XMS_ITS | Encounter Summary ---
Author Organization [facility] Health Address [address] [facility] [place] [address] Care Team Providers Care Cloth Neutralizer Name Role Phone Unavailable Primary Care Provider Unavailabl e Encounter Details Date Type Department Care Team (Late st Contact Info) Description 04/18/2020 11:15 AM CDT Office Visit [facility] - Orthopedics [address] [facility], [place] [address] Taniya Grimes MD [address] [place] [address] DIV OF [facility] [place] [address] Samantha Nuñez PA No Information available Mina Rodas MD [address] [facility] [address] [place], [place] [phone] Right foot pain (Primary Dx) Social History [...] the original note were not included. - [email or web address] Orthopaedic Surgery Clinic Brisa Hogan [...] and given information regarding their diagnosis today. [facility] Orthopaedic office contact information: Please contact our call center at , option #1 to make an appointment Our Locations: [facility] [address] [facility], [address] [address] Please contact the MA at , if you have any further questions or concerns. [facility] [address] [place] [phone] Please contact the office at if you have any further questions or concerns. Sincerely, Samantha Nuñez [facility] [place] [email or web address] documented in this encounter Progress Notes * [...] Follow up Imaging: none MARQUEZ Beckwith, PA-C [facility] Collaborative practice with Dr. Gavin Comer, Dr. Jef Gipson, Dr. Faith Bond, and Dr. Minor. * Carly Romero - 04/18/2020 11:32 AM CDT Right foot pain f/u. Pt reports some improvement but continued soreness when standing prolonged periods. documented in this encounter Plan of Treatment Upcoming Encounters Date Type Department Care Team (Late st Contact Info) Description 08/02/2024 2:20 PM RADIATOR TESTER Appointment [facility] [address] [place] [address] 08/02/2024 3:00 PM RADIATOR TESTER Office Visit [facility] Physician Group - Hematology/Oncology [address] [place] [phone] Remi Beckett MD [address] [place] [phone] 08/18/2024 1:45 PM RADIATOR TESTER Office Visit [facility] Physician Group - ENT [address] [place] [phone] Neri Delgado MD [address] [place] [address] 08/30/2024 2:20 PM RADIATOR TESTER Appointment [facility] [address] [place] [address] documented as of this encounter Visit Diagnoses Diagnosis Right foot pain- Primary Pain in limb documented in this encounter
--- OUTSIDE RECORDS SUMMARY | 2024-07-26 08:44 | XMS_ITS | Encounter Summary ---
Author Organization [facility] Health Address [address] [facility] [place] [address] Care Team Providers Care Customer Solutions Specialist Name Role Phone Marylu Marie DO Unavailable Taniya Grimes MD Primary Care Provider Reason for Visit * Reason Comments Establish Care Neck Mass Results Same Day CT Scan Encounter Details Date Type Department Care Team (Late st Contact Info) Description 07/24/2020 3:00 PM WINDSCREEN FITTER Office Visit [facility] [address] [place] [phone] Dionte Comer MD [address] [place] [address] [place] [address] Tracheal mass (Primary Dx); Hoarseness; Complete paralysis [...] COVID-19? No / Unsure 07/02/2020 12:45 PM WINDSCREEN FITTER documented as of this encounter Last Filed Vital Signs Vital Sign Reading Time Taken Comments Blood Pressure 117/56 07/24/2020 3:29 PM WINDSCREEN FITTER Pulse 76 07/24/2020 3:29 PM WINDSCREEN FITTER Temperature - - Respiratory Rate - - Oxygen Saturation - - Inhaled Oxygen Concentration - - Weight 70.2 kg (154 lb 12.8 oz) 07/24/2020 3:29 PM WINDSCREEN FITTER Height 157.5 cm (5' 2) 07/24/2020 3:29 PM WINDSCREEN FITTER Body Mass Index 28.31 07/24/2020 3:29 PM WINDSCREEN FITTER documented in this encounter Patient Instructions * Patient Instructions* Jacoby Jay - 07/24/2020 2:50 PM WINDSCREEN FITTER Thank you for visiting [facility] Otolaryngology - Head & Neck Surgery. We [...] an appointment, please call our office at [phone] Wednesday through Wednesday from 8:30 am to4:30 pm. You can also request a routine appointment through your [email or web address] account. ??? Prescription Refills Contact your pharmacy [...] call the medical exchangeat and ask the nitric acid plant operator to page the ENT physician tree surgeon. *Caller ID blocking service will need to be turned off for your call to be returned. We also specialize in Hearing Aids, Allergy testing, swallowing disorders, voice problems, cancer diagnosis, and so much more. Visit our website at [email or web address] for information about our practice and an interactive health encyclopedia. SCREEN FITTER documented in this encounter Progress Notes * [...] fluticasone propionate (FLONASE) 50 MCG/ACT nasal spray [place] 2 sprays into each nostril 16 g [...] 10 mg by mouth once daily ??? [place]-3 Fatty Acids (FISH OIL) 1000 MG capsule [...] contrast Intravenous Contrast - Once Nolvia Chun APRN-MOBILE PHONE SALESPERSON 100 mLat 07/24/20 1431 ALLERGIES: Patient has [...] Alive ??? Depression Sister ??? Other Sister xohcilt ??? Arthritis Sister ??? Diabetes Sister ??? [...] for poorly differentiated thyroid cancer, likely staging [id number], overall stage IVb. Plan: Definitive treatment of [...] Willingham MD Otolaryngology-Head and Neck Surgery 07/24/20 SCREEN FITTER Associated attestation - Dionte Comer MD - 07/24/2020 11:38 PM WINDSCREEN FITTER I saw and examined the patient with/after [...] headaches, Cig withdraws Neck: pain, stiffness, swelling SCREEN FITTER documented in this encounter Procedure Notes * [...] present for the entirety of the procedure. SCREEN FITTER documented in this encounter Plan of Treatment Upcoming Encounters Date Type Department Care Team (Late st Contact Info) Description 08/02/2024 2:20 PM WINDSCREEN FITTER Appointment [facility] [address] [place] [address] 08/02/2024 3:00 PM WINDSCREEN FITTER Office Visit [facility] - Hematology/Oncology [address] [place] [phone] Remi Beckett MD [address] [place] [phone] 08/18/2024 1:45 PM WINDSCREEN FITTER Office Visit [facility] - ENT [address] [place] [phone] Neri Delgado MD [address] [place] [phone] 08/30/2024 2:20 PM WINDSCREEN FITTER Appointment [facility] [address] [place] [address] documented as of this encounter Procedures Procedure Name Priority Date/Time Associated Diagnosis Comments GA LARYNGOSCOPY,FLEX FIBER,DIAGNOSTIC Routine 07/24/2020 5:22 PM WINDSCREEN FITTER Hoarseness documented in this encounter Results * SARS-COV-2 (COVID-19) IN HOUSE (08/15/2020 11:01 AM WINDSCREEN FITTER) COVID-19 PCR Not detected Not detected 08/15/2020 4:50 PM WINDSCREEN FITTER [facility] MICROBIOLOGY Microbiology SPECIMEN FROM NASOPHARYNGEAL STRUCTURE / Unknown Collection / Unknown 08/15/2020 11:01 AM WINDSCREEN FITTER 08/15/2020 11:01 AM WINDSCREEN FITTER Narrative [facility] MICROBIOLOGY - 08/15/2020 4:50 PM WINDSCREEN FITTER This nucleic acid amplification assay performance was validated by [facility]biology [facility]. This test has been authorized [...] Comer MD LAB - MICROBIOLOGY O RDERABLES [facility] MICROBIOLOGY [address] [place] [address], [facility] [phone] * GA LARYNGOSCOPY,FLEX FIBER,DIAGNOSTIC (07/24/2020 5:22 PM WINDSCREEN FITTER) Narrative Vince Willingham MD - 07/24/2020 5:22 PM WINDSCREEN FITTER Vince Willingham MD ? 07/24/2020 11:38 PM [...] disorder documented in this encounter Care Teams Customer Solutions Specialist Relationship Specialty Start Date End Date Taniya Grimes MD [address] DIV OF [facility] [place] [address] PCP - General 07/01/20 05/10/22 Marylu Marie DO [address] DIV OF [facility] [place] [address] Resident - PCP Student Resident 06/26/20 01/11/22 documented as of this encounter
--- OUTSIDE RECORDS SUMMARY | 2024-07-26 08:44 | XMS_ITS | Encounter Summary ---
Author Organization [facility] Address [address] [facility] [place] [address] Care Team Providers Care Radiation Protection Technician Name Role Phone Marylu Marie DO Unavailable Taniya Grimes MD Primary Care Provider Reason for Referral * Radiology Services (Routine) - Closed Specialty Diagnoses / Procedures Referred By Contac t Referred To Contact CT Scan Diagnoses Neck mass Procedures CT NECK SOFT TISSUE W Nolvia Tam APRN-CNP [address] [place] [address] [facility] [address] [place] [phone] Referral ID Status Reason Start Date Expiration Date Visits Re quested Visits Authorized [id number] Closed 07/17/2020 01/13/2021 1 1 ACTION MACHINE OPERATOR Reason for Visit * Radiology Services (Routine) - Closed Specialty Diagnoses / Procedures Referred By Contac t Referred To Contact CT Scan Diagnoses Neck mass Procedures CT NECK SOFT TISSUE W Nolvia Tam APRN-CNP [address] [place] [address] [facility] [address] [place] [phone] Referral ID Status Reason Start Date Expiration Date Visits Re quested Visits Authorized [id number] Closed 07/17/2020 01/13/2021 1 1 Encounter Details Date Type Department Care Team (Latest Contact Info) Description 07/24/2020 2:21 PM EXTRACTION MACHINE OPERATOR - 07/24/2020 11:59 PM EXTRACTION MACHINE OPERATOR Hospital Encounter [facility] CAT SCAN [address] [place] [phone] ChunNolvia, SALES SERVICE ASSISTANT-BUSINESS INFORMATION MANAGER [address] [place] [address] Discharge Disposition: Home or Self Care Social [...] COVID-19? No / Unsure 07/02/2020 12:45 PM EXTRACTION MACHINE OPERATOR documented as of this encounter Medications at [...] fluticasone propionate (FLONASE) 50 MCG/ACT nasal spray [place] 2 sprays into each nostril 16 g [...] mg by mouth once daily 07/05/2020 08/01/2020 [place]-3 Fatty Acids (FISH OIL) 1000 MG capsule [...] st Contact Info) Description 08/02/2024 2:20 PM EXTRACTION MACHINE OPERATOR Appointment [facility] [address] [place] [address] 08/02/2024 3:00 PM EXTRACTION MACHINE OPERATOR Office Visit [facility] Physician Group - Hematology/Oncology [address] [place] [phone] Remi Beckett MD [address] [place] [phone] 08/18/2024 1:45 PM EXTRACTION MACHINE OPERATOR Office Visit [facility] Phys[facility] - ENT [address] [place] [phone] Neri Delgado MD [address] [place] [phone] 08/30/2024 2:20 PM EXTRACTION MACHINE OPERATOR Appointment [facility] [address] [place] [address] documented as of this encounter Procedures Procedure Name Priority Date/Time Associated Diagnosis Comments CT NECK SOFT TISSUE W CONT Routine 07/24/2020 2:46 PM EXTRACTION MACHINE OPERATOR Neck mass CREATININE - POCT INTERFACED Routine 07/24/2020 2:27 PM EXTRACTION MACHINE OPERATOR documented in this encounter Results * CT NECK SOFT TISSUE W CONT (07/24/2020 2:46 PM EXTRACTION MACHINE OPERATOR) Anatomical Region Laterality Modality Head Computed Tomogra phy 07/24/2020 2:54 PM EXTRACTION MACHINE OPERATOR Impressions 07/24/2020 3:16 PM EXTRACTION MACHINE OPERATOR IMPRESSION: 1. A mildly enlarged left level [...] 3:16 PM . Narrative 07/24/2020 3:16 PM EXTRACTION MACHINE OPERATOR EXAMINATION: ??Computed tomography (CT) of the neck [...] on 07/24/2020 3:16 PM . Nolvia Chun APRN-BUSINESS INFORMATION MANAGER CT ORDERABLES * CREATININE - POCT INTERFACED (07/24/2020 2:27 PM EXTRACTION MACHINE OPERATOR) Creatinine POCT 0.67 0.30 - 1.30 mg/dL 07/24/2020 3:13 PM EXTRACTION MACHINE OPERATOR [facility] eGFR >60 >60 mL/min/1.7 3 m2 07/24/2020 3:13 PM EXTRACTION MACHINE OPERATOR [facility] Blood BLOOD SPECIMEN / Unknown 07/24/2020 2:27 PM EXTRACTION MACHINE OPERATOR 07/24/2020 3:13 PM EXTRACTION MACHINE OPERATOR Nolvia Srinivas Chun SALES SERVICE ASSISTANT-BUSINESS INFORMATION MANAGER LAB - POINT OF CAR E ORDERABLES [facility] [address] [place] [phone], [facility] [phone] documented in this encounter Visit Diagnoses Diagnosis [...] $ Given - Contrast 07/24/2020 2:31 PM EXTRACTION MACHINE OPERATOR 100 mL documented in this encounter Care Teams Radiation Protection Technician Relationship Specialty Start Date End Date Taniya Grimes MD [address] [facility] 2L DIV OF [facility] [place] [address] PCP - General 07/01/20 05/10/22 Marylu Marie DO [address] [facility] 2L DIV OF [facility] [place] [address] Resident - PCP Student Resident 06/26/20 01/11/22 documented as of this encounter
--- OUTSIDE RECORDS SUMMARY | 2024-07-26 08:44 | XMS_ITS | Encounter Summary ---
Author Organization [facility] Address [address] [facility] [place] [address] Care Team Providers Care Coal Loader Name Role Phone FrankMarylu DO Unavailable [phone] Taniya Grimes MD Primary Care Provider [phone] Reason for Referral * Radiology Services (Routine) - Closed Specialty Diagnoses / Procedures Referred By Yuan robins Referred To Contact Radiology Diagnoses Other dysphagia Dysphagia, unspecified type Complete paralysis of right vocal cord Procedures FL SWALLOWING FUNCTION STUDY Nolvia Chun APRN-CNP [address] [place] [address] [facility] Diagnostic Rad [address] [place] [address] Referral ID Status Reason Start Date Expiration Date Visits Re quested Visits Authorized [id number] Closed 07/25/2020 07/25/2021 1 1 ACQUISITION MANAGER Encounter Details Date Type Department Care Team (Late st Contact Info) Description 07/25/2020 Orders Only [facility] [address] [place] [address] Nolvia Chun APRN-CNP [address] [place], [place] [phone] Other dysphagia ; Dysphagia, unspecified type; Complete [...] COVID-19? No / Unsure 07/02/2020 12:45 PM LAND ACQUISITION MANAGER documented as of this encounter Plan of Treatment Upcoming Encounters Date Type Department Care Team (Late st Contact Info) Description 08/02/2024 2:20 PM LAND ACQUISITION MANAGER Appointment [facility] [address] [place] [address] 08/02/2024 3:00 PM LAND ACQUISITION MANAGER Office Visit [facility] - Hematology/Oncology [address] [place] [phone] Remi Beckett MD [address] [place] [phone] 08/18/2024 1:45 PM LAND ACQUISITION MANAGER Office Visit [facility] - ENT [address] [place] [phone] Neri Delgado MD [address] [place] [address] 08/30/2024 2:20 PM LAND ACQUISITION MANAGER Appointment [facility] [address] [place] [address] documented as of this encounter Results * FL SWALLOWING FUNCTION STUDY (08/07/2020 3:25 PM LAND ACQUISITION MANAGER) Anatomical Region Laterality Modality Chest Radiographic Ewa ging 08/07/2020 3:11 PM LAND ACQUISITION MANAGER Impressions 08/07/2020 3:16 PM LAND ACQUISITION MANAGER IMPRESSION: Fluoroscopic assistance was provided for a modified barium swallow test performed by Speech Therapy. Please see the Speech Therapy report for details. Report dictated by Jonathan Andre DO (residential property manager). I, Dr. JOSHUA HOUSE have personally reviewed and interpreted this examination/study. This report was electronically signed by JOSHUA HOUSE ??on 08/07/2020 3:16 PM . Narrative 08/07/2020 3:16 PM LAND ACQUISITION MANAGER EXAMINATION: Modified barium swallow HISTORY: R13.19: [...] Report dictated by Jonathan Andre DO (residential property manager). I, Dr. JOSHUA HOUSE have personally reviewed and interpreted this examination/study. This report was electronically signed by JOSHUA HOUSE on 08/07/2020 3:16 PM . Nolvia Chun APRN-VAUDEVILLE ACTOR FLUOROSCOPY ORDERA BLES documented in this encounter Visit Diagnoses Diagnosis Dysphagia, unspecified type Complete paralysis of right vocal cord Dysphagia, unspecified type Complete paralysis of right vocal cord documented in this encounter Care Teams Coal Loader Relationship Specialty Start Date End Date Taniya Grimes MD [address] 2L DIV OF [facility] [place] [address] PCP - General 07/01/20 05/10/22 Marylu Marie DO [address] [facility] OF [facility] [place] [address] Resident - PCP Student Resident 06/26/20 01/11/22 documented as of this encounter
--- OUTSIDE RECORDS SUMMARY | 2024-07-26 08:44 | XMS_ITS | Encounter Summary ---
Author Organization [facility] Address [address] [facility] [place] [address] Care Team Providers Care Personal Shopper Name Role Phone Marylu Marie DO Unavailable Taniya Grimes MD Primary Care Provider [phone] Reason for Visit * Reason Onset Date Comments Results 07/18/2020 Encounter Details Date Type Department Care Team (Late st Contact Info) Description 07/18/2020 Telephone [facility] - Orthopedics [address] [facility], [facility] [place] [address] Marylu Bajwa APRN-CNP [address] [place] [address] OF ORTHOPEDIC SURGERY [place], [place] [phone] Results Social History Tobacco Use Types Packs/Day [...] COVID-19? No / Unsure 07/02/2020 12:45 PM WILDLIFE MANAGEMENT PROFESSOR documented as of this encounter Miscellaneous Notes * Telephone Encounter - Marylu Bajwa APRN-CNP - 07/18/2020 2:39 PM WILDLIFE MANAGEMENT PROFESSOR Called patient to review results of MRI [...] with plan. She was transferred to our recreational therapy aide, Vianey, to schedule her follow up with Dr. Taylor. LIFE MANAGEMENT PROFESSOR documented in this encounter Plan of Treatment Upcoming Encounters Date Type Department Care Team (Late st Contact Info) Description 08/02/2024 2:20 PM WILDLIFE MANAGEMENT PROFESSOR Appointment [facility] [address] [place] [address] 08/02/2024 3:00 PM WILDLIFE MANAGEMENT PROFESSOR Office Visit [facility] - Hematology/Oncology [address] [place] [phone] Remi Beckett MD [address] [place] [phone] 08/18/2024 1:45 PM WILDLIFE MANAGEMENT PROFESSOR Office Visit [facility] - ENT [address] [place] [phone] Neri Delgado MD [address] [place] [address] 08/30/2024 2:20 PM WILDLIFE MANAGEMENT PROFESSOR Appointment [facility] [address] [place] [address] documented as of this encounter Visit Diagnoses Not on filedocumented in this encounter Care Teams Personal Shopper Relationship Specialty Start Date End Date Taniya Grimes MD [address] [place] [address] 2L DIV OF [facility] [place] [phone] PCP - General 07/01/20 05/10/22 Marylu Marie DO [address] [place] [place] [address] 2L DIV OF [facility] [place] [address] Resident - PCP Student Resident 06/26/20 01/11/22 documented as of this encounter
--- OUTSIDE RECORDS SUMMARY | 2024-07-26 08:44 | XMS_ITS | Encounter Summary ---
Author Organization [facility] Health Address [address] [facility] [place] [address] Care Team Providers Care Door Paneler Name Role Phone Marylu Marie DO Unavailable [phone] Taniya Grimes MD Primary Care Provider Encounter [...] COVID-19? No / Unsure 07/26/2020 11:45 AM NURSE ORTHOPAEDIC documented as of this encounter Plan of Treatment Upcoming Encounters Date Type Department Care Team (Late st Contact Info) Description 08/02/2024 2:20 PM NURSE ORTHOPAEDIC Appointment [facility] [address] [place] [address] 08/02/2024 3:00 PM NURSE ORTHOPAEDIC Office Visit [facility] - Hematology/Oncology [facility]5 [place] [phone] [place] [address] [place] [phone] 08/18/2024 1:45 PM NURSE ORTHOPAEDIC Office Visit [facility] - ENT [address] [place] [address] Neri Delgado MD [address] [place] [address] 08/30/2024 2:20 PM NURSE ORTHOPAEDIC Appointment [facility] [address] [place] [address] documented as of this encounter Visit Diagnoses Not on filedocumented in this encounter Care Teams Door Paneler Relationship Specialty Start Date End Date Taniya Grimes MD [address] [place] [address] 2L DIV OF [facility] [place] [address] PCP - General 07/01/20 05/10/22 Marylu Marie DO [address] [place] [address] 2L DIV OF [facility] [place] [address] Resident - PCP Student Resident 06/26/20 01/11/22 documented as of this encounter
--- OUTSIDE RECORDS SUMMARY | 2024-07-26 08:44 | XMS_ITS | Encounter Summary ---
Author Organization [facility] Health Address [address] [facility] [place] [address] Care Team Providers Care Movie Writer Name Role Phone Marylu Marie DO Unavailable [phone] Taniya Grimes MD Primary Care Provider Encounter [...] COVID-19? No / Unsure 07/02/2020 12:45 PM STRIPPER SOFT PLASTIC documented as of this encounter Plan of Treatment Upcoming Encounters Date Type Department Care Team (Late st Contact Info) Description 08/02/2024 2:20 PM STRIPPER SOFT PLASTIC Appointment [facility] [address] [place] [address] 08/02/2024 3:00 PM STRIPPER SOFT PLASTIC Office Visit [facility] - Hematology/Oncology [address] [place] [phone] Remi Beckett MD [address] [place] [phone] 08/18/2024 1:45 PM STRIPPER SOFT PLASTIC Office Visit [facility] - ENT [address] [place] [address] Neri Delgado MD [address] [place] [address] 08/30/2024 2:20 PM STRIPPER SOFT PLASTIC Appointment [facility] [address] [place] [address] documented as of this encounter Visit Diagnoses Not on filedocumented in this encounter Care Teams Movie Writer Relationship Specialty Start Date End Date Taniya Grimes MD [address] [facility] 2L DIV OF [facility] [place] [address] PCP - General 07/01/20 05/10/22 Marylu Marie DO [address] [place] [address] 2L DIV OF [facility] [place] [address] Resident - PCP Student Resident 06/26/20 01/11/22 documented as of this encounter
--- OUTSIDE RECORDS SUMMARY | 2024-07-26 08:44 | XMS_ITS | Encounter Summary ---
Author Organization [facility] Health Address [address] [facility] [place] [address] Care Team Providers Care Parts Driver Name Role Phone Unavailable Primary Care Provider [...] COVID-19? No / Unsure 05/13/2020 2:56 PM PULLMAN CLERK documented as of this encounter Plan of Treatment Upcoming Encounters Date Type Department Care Team (Late st Contact Info) Description 08/02/2024 2:20 PM PULLMAN CLERK Appointment [facility] [address] [place] [address] 08/02/2024 3:00 PM PULLMAN CLERK Office Visit [facility] - Hematology/Oncology [facility]5 [place] [phone] [place] [address] [place] [phone] 08/18/2024 1:45 PM PULLMAN CLERK [facility] [address] [place] [phone] Neri Delgado MD [address] [place] [address] 08/30/2024 2:20 PM PULLMAN CLERK Appointment [facility] [address] [place] [address] documented as of this encounter Visit Diagnoses Not on filedocumented in this encounter
--- OUTSIDE RECORDS SUMMARY | 2024-07-26 08:44 | XMS_ITS | Encounter Summary ---
Author Organization [facility] Health Address [address] [facility] [place] [address] Care Team Providers Care Air And Water Tester Name Role Phone Marylu Marie DO Unavailable [phone] Taniya Grimes MD Primary Care Provider Reason for Visit * Reason Comments Refill Request Encounter Details Date Type Department Care Team (Late Contact Info) Description 07/15/2020 Refill [facility] - Orthopedics [address] [facility] [place] [address] Cesar Brooks MD [address] [address] Refill Request Social History Tobacco Use Types [...] COVID-19? No / Unsure 07/02/2020 12:45 PM COD CLERK documented as of this encounter Plan of Treatment Upcoming Encounters Date Type Department Care Team (Late Contact Info) Description 08/02/2024 2:20 PM COD CLERK Appointment [facility] [address] [place] [address] 08/02/2024 3:00 PM COD CLERK Office Visit [facility] - Hematology/Oncology [address] [place] [address] Remi Beckett MD [address] [place] [address] 08/18/2024 1:45 PM COD CLERK Office Visit [facility] - ENT [address] [place] [address] Neri Delgado MD [address] [place] [address] 08/30/2024 2:20 PM COD CLERK Appointment [facility] [address] [place] [address] documented as of this encounter Visit Diagnoses Not on filedocumented in this encounter Care Teams Air And Water Tester Relationship Specialty [place] [address] [place] [address] 2L DIV OF [facility] [place] [address] PCP - General 07/01/20 05/10/22 [place] [address] [place] [address] 2L DIV OF [facility] [place] [address] Resident - PCP Student Resident 06/26/20 01/11/22 documented as of this encounter
--- OUTSIDE RECORDS SUMMARY | 2024-07-26 08:44 | XMS_ITS | Encounter Summary ---
Author Organization [facility] Health Address [address] [facility] [place] [address] Care Team Providers Care Organic Chemistry Teacher Name Role Phone Marylu Marie DO Unavailable Taniya Grimes MD Primary Care Provider [phone] Encounter Details Date Type Department Care Team (Late Contact Info) Description 07/25/2020 Orders Only [facility] Otolaryngology [facility]5 [place] [address] Mariah Nunn, RN Neck mass Social History [...] COVID-19? No / Unsure 07/02/2020 12:45 PM ENTERPRISE APPLICATION ADMINISTRATOR documented as of this encounter Plan of Treatment Upcoming Encounters Date Type Department Care Team (Late Contact Info) Description 08/02/2024 2:20 PM ENTERPRISE APPLICATION ADMINISTRATOR Appointment [facility] [address] [place] [address] 08/02/2024 3:00 PM ENTERPRISE APPLICATION ADMINISTRATOR Office Visit [facility] - Hematology/Oncology [address] [place] [phone] Remi Beckett MD [address] [place] [address] 08/18/2024 1:45 PM ENTERPRISE APPLICATION ADMINISTRATOR Office Visit [facility] - ENT [facility]5 [place] [phone] Neri Delgado MD [address] [place] [address] 08/30/2024 2:20 PM ENTERPRISE APPLICATION ADMINISTRATOR Appointment [facility] [address] [place] [address] documented as of this encounter Visit Diagnoses Diagnosis Neck mass- Primary Swelling, mass, or lump in head and neck documented in this encounter Care Teams Organic Chemistry Teacher Relationship Specialty Start Date End Date Taniya Grimes MD [address] [place] [address] 2L DIV OF [facility] [place] [phone] PCP - General 07/01/20 05/10/22 Marylu Marie DO [address] [place] [address] 2[place] [address] Resident - PCP Student Resident 06/26/20 01/11/22 documented as of this encounter
--- OUTSIDE RECORDS SUMMARY | 2024-07-26 08:44 | XMS_ITS | Encounter Summary ---
Author Organization [facility] Health Address [address] [facility] [place] [address] Care Team Providers Care Edge Plugger Name Role Phone Unavailable Primary Care Provider Unavailabl e Reason for Visit * Reason Onset Date Comments Appointment 05/14/2020 Encounter Details Date Type Department Care Team (Late Contact Info) Description 05/14/2020 Telephone [facility] - Orthopedics [address] [place] [phone] Kendra Garay Appointment Social History Tobacco Use [...] COVID-19? No / Unsure 05/13/2020 2:56 PM DATA ENGINEER documented as of this encounter Miscellaneous Notes * Telephone Encounter - Kendra Garay - 05/14/2020 3:50 PM CST Spoke with patient about appointment change from 05/16/2020 at 11:15 to 05/21/2020 at 11:00 ENGINEER documented in this encounter Plan of Treatment Upcoming Encounters Date Type Department Care Team ([facility] Contact Info) Description 08/02/2024 2:20 PM DATA ENGINEER Appointment [facility] [address] [place] [address] 08/02/2024 3:00 PM DATA ENGINEER Office Visit [facility] - Hematology/Oncology [address] [place] [phone] Remi Beckett MD [address] [place] [phone] 08/18/2024 1:45 PM DATA ENGINEER Office Visit [facility] - ENT [address] [place] [phone] Neri Delgado MD [address] [place] [address] 08/30/2024 2:20 PM DATA ENGINEER Appointment [facility] [address] [place] [address] documented as of this encounter Visit Diagnoses Not on filedocumented in this encounter
--- OUTSIDE RECORDS SUMMARY | 2024-07-26 08:44 | XMS_ITS | Encounter Summary ---
Author Organization [facility] Health Address [address] [facility] [place] [address] Care Team Providers Care Mower Sharpener Name Role Phone Unavailable Primary Care Provider [...] st Contact Info) Description 08/02/2024 2:20 PM DISK SHARPENER Appointment [facility] [address] [place] [address] 08/02/2024 3:00 PM DISK SHARPENER Office Visit [facility] - Hematology/Oncology [facility]5 [place] [phone] [place] [address] [place] [phone] 08/18/2024 1:45 PM DISK SHARPENER [facility] [address] [place] [phone] Neri Delgado MD [address] [place] [address] 08/30/2024 2:20 PM DISK SHARPENER Appointment [facility] [address] [place] [address] documented as of this encounter Visit Diagnoses Not on filedocumented in this encounter
--- OUTSIDE RECORDS SUMMARY | 2024-07-26 08:44 | XMS_ITS | Encounter Summary ---
Author Organization [facility] Health Address [address] [place] [address] Care Team Providers Care Health Consultant Name Role Phone Marylu Marie DO Unavailable Taniya Grimes MD Primary Care Provider Reason for Visit * Auth/Cert Specialty Diagnoses / Procedures Referred By Contac t Referred To Contact Diagnoses Thyroid nodule Procedures US THYROID FNA Referral ID Status Reason Start Date Expiration Date Visits Re quested Visits Authorized [id number] 1 1 Encounter Details Date Type Department Care Team (Latest Contact Info) Description 08/01/2020 12:21 PM GROUNDSKEEPER SUPERVISOR - 08/01/2020 3:27 PM GROUNDSKEEPER SUPERVISOR Hospital Encounter [facility] [address] [place] [address] Dionte Comer MD [facility] [place] [address] Marcela Goodrich MD [facility] [address] [address] [facility] Rad[facility] Discharge Disposition: Home [...] COVID-19? No / Unsure 07/26/2020 11:45 AM GROUNDSKEEPER SUPERVISOR documented as of this encounter Last Filed Vital Signs Vital Sign Reading Time Taken Comments Blood Pressure 146/68 08/01/2020 3:05 PM GROUNDSKEEPER SUPERVISOR Pulse 64 08/01/2020 3:15 PM GROUNDSKEEPER SUPERVISOR Temperature 36.4 ??C (97.6 ??F) 08/01/2020 1 2:47 PM GROUNDSKEEPER SUPERVISOR Respiratory Rate 27 08/01/2020 3:15 PM GROUNDSKEEPER SUPERVISOR Oxygen Saturation 99% 08/01/2020 3:15 PM GROUNDSKEEPER SUPERVISOR Inhaled Oxygen Concentration - - Weight 70.3 kg (154 lb 14.4 oz) 021 12:47 PM GROUNDSKEEPER SUPERVISOR Height 154.9 cm (5' 1) 08/01/2020 12:4 7 PM GROUNDSKEEPER SUPERVISOR Body Mass Index 29.27 08/01/2020 12:47 PM GROUNDSKEEPER SUPERVISOR documented in this encounter Functional Status [...] Josephine Calderón, JOSY - 08/01/2020 3:09 PM GROUNDSKEEPER SUPERVISOR Images from the original note were not [...] in your neck. Call your doctor or assistant terminal manager if: ?? You have discomfort or pain [...] activities. Follow up with your doctor or assistant terminal manager as directed: Write down your questions so you remember to ask them during your visits. ?? Copyright [employer] 2020 Information is for End User's use only and may not be sold, redistributed or otherwise used for commercial purposes. All illustrations and images included in CareNotes?? are the copyrighted property of [employer] or [employer] The above information is an biological aide only. It is not intended as medical advice for individual conditions or treatments. Talk to your doctor, nurse or pharmacist before following any medical regimen to see if it is safe and effective for you. NDSKEEPER SUPERVISOR documented in this encounter Medications at Time [...] by mouth as needed 01/13/2021 albuterol HFA (PROVENTIL;VENTOLIN;MI OAIR) 108 (90 Base) MCG/ACT inhaler Inhale [...] propionate (FLONASE) 50 MCG/ACT nasal spray [place] 2 sprays into each nostril 16 g 09/06/2019 04/11/2021 gabapentin (NEURONTIN) 300 MG capsuleIndications:Nicole favio osteoarthritis of left hip TAKE 1 CAPSULE BY MOUTH THREE TIMES A DAY 90 capsule 5 03/08/2020 09/06/2020 [id number]-[id number]-C -HYAL PO Take 1 tablet by mouth 3 times daily 06/13/2023 levothyroxine (SYNTHROID) 112 MCG tablet Take 1 (one) tablet by mouth once daily 30 tablet 1 08/30/2020 10/14/2020 meloxicam (MOBIC) 7.5 MG tablet TAKE 1 TABLET BY MOUTH EVERY DAY 60 tablet 2 07/16/2020 01/13/2021 [place]-3 Fatty Acids (FISH OIL) 1000 MG capsule [...] post-op JOSY Burton for transfer of care. NDSKEEPER SUPERVISOR * Cyrus Mcdonald RN - 08/01/2020 2:55 PM CST Post op notified patient finished with procedure. NDSKEEPER SUPERVISOR * Cyrus Mcdonald RN - 08/01/2020 2:54 PM CST Interventional Radiology Nursing - End Procedure Note Sedation: None Sedation start time: N/A Procedure start time: 1425 hours Procedure end time: 1450 hours Additional drugs: None Contrast: NONE Fluoroscopy time: NONE NDSKEEPER SUPERVISOR * Cyrus Mcdonald RN - 08/01/2020 1:59 PM CST Patient identified verbally and with armband. Pt to IR suite via stretcher. Patient to remain on stretcher during procedure. Placed in semi-fowlers position. Pt connected to continuous surveillance system monitor, NIBP, and pulse ox. Suction set up available at beside. NAD noted. NDSKEEPER SUPERVISOR * Jeanna Dailey RN - 2020 2:50 PM CST Appt confirmed with pt. Pt verbalized understanding of pre procedure instructions. NDSKEEPER SUPERVISOR documented in this encounter H&P Notes * [...] results for input(s): INR in the last 63040 hours. Recent Labs Component Name 07/24/20 1427 [...] and related procedures Molly Rao MD PGY-2 Silviculturist NDSKEEPER SUPERVISOR documented in this encounter OR Notes * Brief Op Note - Molly Rao MD - 08/01/2020 2:55 PM CST Vascular & Interventional Radiology Brief Post-Procedure Note Patient: Brisa Woody Hogan Attending: Maryse Wright MD Carrier Blower: MD Trinity Ruvalcaba (MS4) Diagnosis/Indication: Indeterminate thyroid [...] images in PACS. Molly Rao MD PGY-2 Silviculturist NDSKEEPER SUPERVISOR documented in this encounter Plan of Treatment Upcoming Encounters Date Type Department Care Team (Late st Contact Info) Description 08/02/2024 2:20 PM GROUNDSKEEPER SUPERVISOR Appointment [facility] [address] [place] [address] 08/02/2024 3:00 PM GROUNDSKEEPER SUPERVISOR Office Visit [facility] - Hematology/Oncology [address] [place] [phone] Remi Beckett MD [address] [place] [phone] 08/18/2024 1:45 PM GROUNDSKEEPER SUPERVISOR Office Visit [facility] - ENT [address] [place] [address] [phone] Neri Delgado MD [address] [place] [address] 08/30/2024 2:20 PM GROUNDSKEEPER SUPERVISOR Appointment [facility] [address] [place] [address] documented as of this encounter Procedures Procedure Name Priority Date/Time Associated Diagnosis Comments FINE NEEDLE ASPIRATION - THYROID (STL) Routine 08/01/2020 2:51 PM GROUNDSKEEPER SUPERVISOR Thyroid nodule THYROID FNA Routine 08/01/2020 2:41 PM GROUNDSKEEPER SUPERVISOR Thyroid nodule documented in this encounter Results * FINE NEEDLE ASPIRATION - THYROID (STL) (08/01/2020 2:51 PM GROUNDSKEEPER SUPERVISOR) Case Report Medical Cytology Report ? Case: [id number] ? Authorizing Provider: ??Maryse Wright MD ? Collected: ? 08/01/2020 02:51 PM ? Ordering Location: ? [facility] ?Received: ?08/01/2020 03:15 PM ? Pathologist: ? Jhonny Young MD ? Specimen: ?Thyroid, right nodule ? 08/05/2020 3:26 PM [facility] Specimen Adequacy Adequate cellularity for evaluation. 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 08/05/2020 3:26 PM [facility] Clinical History The patient is a 60 year-old woman recently found to have a right thyroid nodule who underwent fine needle aspiration of the nodule on 08/01/2020. CT neck (07/24/2020) A 2.8 x 2.0 cm hypoattenuating nodule in the right lobe of the thyroid gland causing mass effect. 08/05/2020 3:26 PM [facility] Gross Description 1 pap stained slide, 1 cell block from 30cc collection fluid 08/05/2020 3:26 PM [facility] Microscopic Description A [...] its indolent counterpart NIFTP. 08/05/2020 3:26 PM [facility] Disclaimer The performance characteristics of all immunohistochemical and indirect immunofluorescence stains (if any) cited in this report were determined by the Histopathology Laboratory of [facility]. Some of these tests rely on the use of analyte-specific reagents and are subject to specific labeling requirements by the US Food and Drug Administration. Such tests were developed by the Histology Laboratory of [facility] and have not been cleared or [...] the attending (teaching) pathologist. 08/05/2020 3:26 PM [facility] Embedded Images 08/05/2020 3:26 PM [facility] Pathology/Cytolo gy SPECIMEN FROM THYROID OBTAINED BY THYROIDECTOMY / Unknown Collection / Unknown 08/01/2020 2:51 PM GROUNDSKEEPER SUPERVISOR 08/01/2020 3:15 PM GROUNDSKEEPER SUPERVISOR Maryse Wright MD LAB - PATHOLOGY/CYTO LOGY ORDERABLES Performing Organization Address City/State/[facility] Co de Phone Number [facility] [address] [phone] * US THYROID FNA (08/01/2020 2:41 PM GROUNDSKEEPER SUPERVISOR) Anatomical Region Laterality Modality X-Ray Angiograph y 08/01/2020 2:59 PM GROUNDSKEEPER SUPERVISOR Impressions 08/11/2020 6:37 PM GROUNDSKEEPER SUPERVISOR Impression: Ultrasound-guided fine needle aspiration of a right thyroid nodule, as described above.The pathology report is pending at the time of this dictation. IDr. Maryse, was present and performed/supervised the entire procedure. Dictated by Molly Rao M.D. (claims vice president) Dr. MARYSE Mckeon M.D. have personally reviewed and interpreted this examination/study. This report was electronically signed by MARYSE WRIGHT M.D. ??on 08/11/2020 6:37 PM . Narrative 08/11/2020 6:37 PM GROUNDSKEEPER SUPERVISOR History: 60 year oldfemalerecemtly found to [...] entire procedure. Dictated by Molly Rao M.D. (claims vice president) I, Dr. MARYSE WRIGHT M.D. have personally [...] at 1726 $ Given 08/01/2020 5:26 PM GROUNDSKEEPER SUPERVISOR 1.5 mL See C omments $ Given 08/01/2020 2:20 PM GROUNDSKEEPER SUPERVISOR 10 mL Se e Comments lidocaine PF (XYLOCAINE MPF) 1 % injection Epidural, ONCE PRN, Starting on Josi 08/01/20 at 1420, Until Josi 08/01/20 at 1534 documented in this encounter Active and Recently Administered Medications Times are shown in GROUNDSKEEPER SUPERVISOR. PRN Medication Order 07/30/2020 2020 08/01/2020 lidocaine [...] administer) documented in this encounter Care Teams Health Consultant Relationship Specialty Start Date End Date Taniya Grimes MD [address] DIV OF [facility] [place] [address] PCP - General 07/01/20 05/10/22 Marylu Marie DO [address] DIV OF [facility] [place] [address] Resident - PCP Student Resident 06/26/20 01/11/22 documented as of this encounter
--- OUTSIDE RECORDS SUMMARY | 2024-07-26 08:44 | XMS_ITS | Encounter Summary ---
Author Organization [facility] Health Address [address] [place] [address] Care Team Providers Care Seafood And Service Meat Manager Name Role Phone Unavailable Primary Care Provider Unavailabl e Reason for Referral * Radiology Services (Routine) - Closed Specialty Diagnoses / Procedures Referred By Yuan t Referred To Contact CT Scan Diagnoses Right foot pain Procedures MRI FOOT RIGHT WO CONTRAST Samantha Nuñez PA No Information available Referral ID Status Reason Start Date Expiration Date Visits Re quested Visits Authorized [id number] Closed 06/04/2020 12/01/2020 1 1 TRIMMER Reason for Visit * Reason Comments Pain Foot right Encounter Details Date Type Department Care Team (Late st Contact Info) Description 06/04/2020 2:30 PM BOOK TRIMMER [facility] [address] [place] [address] Samantha Nuñez PA No Information available Right [...] COVID-19? No / Unsure 05/13/2020 2:56 PM BOOK TRIMMER documented as of this encounter Last Filed Vital Signs Vital Sign Reading Time Taken Comments Blood Pressure - - Pulse - - Temperature - - Respiratory Rate - - Oxygen Saturation - - Inhaled Oxygen Concentration - - Weight 69.6 kg (153 lb 6.4 oz) 06/04/2020 2:38 P M BOOK TRIMMER Height 154.9 cm (5' 1) 06/04/2020 2:38 PM BOOK TRIMMER Body Mass Index 28.98 06/04/2020 2:38 PM BOOK TRIMMER documented in this encounter Patient Instructions * Patient Instructions* Samantha Nuñez PA - 06/04/2020 3:04 PM BOOK TRIMMER Images from the original note were not included. - [email or web address] Orthopaedic Surgery Clinic Brisa Hogan 06/04/2020 [...] and given information regarding their diagnosis today. [facility] office contact information: Please contact our call center at , option #1 to make an appointment Our Locations: [facility] [address] [place] [address], [address] [phone] Please contact the [place] at , if you have any further questions or concerns. Critical access hospital [address] [place] [address] Please contact the office at if you have any further questions or concerns. Sincerely, MARQUEZ Beckwith PA-C [email or web address] TRIMMER documented in this encounter Progress Notes * [...] MRI 6. Follow up Imaging: MRI next MARQUEZ Beckwith, PABetoC [facility] Orthopaedic Surgery Collaborative practice with Dr. Jef Gipson, Dr. Faith Bond, and Dr. Cesar Brooks. TRIMMER * Carly Romero - 06/04/2020 2:36 PM CST Right foot f/u. Pt reports she has transitioned from the postop shoe. She has sharp pain out the blue. Swelling has decreased. TRIMMER documented in this encounter Plan of Treatment Upcoming Encounters Date Type Department Care Team (Late st Contact Info) Description 08/02/2024 2:20 PM BOOK TRIMMER Appointment [facility] [address] [place] [address] 08/02/2024 3:00 PM BOOK TRIMMER Office Visit [facility] - Hematology/Oncology [address] [place] [address] Remi Beckett MD [address] [place] [address] 08/18/2024 1:45 PM BOOK TRIMMER Office Visit [facility] [address] [place] [phone] Neri Delgado MD [address] [place] [address] 08/30/2024 2:20 PM BOOK TRIMMER Appointment [facility] [address] [place] [address] documented as of this encounter Results * MRI FOOT RIGHT WO CONTRAST (07/02/2020 1:48 PM BOOK TRIMMER) Anatomical Region Laterality Modality Ankle / Foot Magnetic Resonan ce 07/02/2020 2:35 PM BOOK TRIMMER Impressions 07/02/2020 3:19 PM BOOK TRIMMER IMPRESSION: 1. No fracture or stress fracture. [...] 3:19 PM . Narrative 07/02/2020 3:19 PM BOOK TRIMMER Exam: ??MRI FOOT RIGHT WO CONTRAST History: ??M79.671: Right foot pain . Persistent pain in the second metatarsal, bursitis versus fracture versus Aceves neuroma Comparison: Right foot Radiographs dated 04/02/2020 TECHNIQUE: Images were obtained in the axial, sagittal, and coronal planes using T1 and fluid sensitive fat suppressed sequences without contrast. The [id number] was set to evaluate the area of [...] sensitive fat suppressed sequences without contrast. The [id number]-pg-crql was set to evaluate the area of [...]
--- OUTSIDE RECORDS SUMMARY | 2024-07-26 08:45 | XMS_ITS | Encounter Summary ---
Author Organization [facility] Health Address [address] [facility] [place] [address] Care Team Providers Care Owner Name Role Phone Unavailable Primary Care Provider Unavailabl e Encounter Details Date Type Department Care Team (Late Contact Info) Description 03/14/2020 Orders Only [facility] [address] [place] [address], [facility] [place] [address] Marylu Marie DO [address] [place] [address] OF [facility] [place] [address] Thyroid nodule Social History Tobacco Use Types [...] (Late Contact Info) Description 08/02/2024 2:20 PM SERVICE DESK DIRECTOR Appointment [facility] [address] [place] [address] 08/02/2024 3:00 PM SERVICE DESK DIRECTOR Office Visit [facility] - Hematology/Oncology [address] [place] [address] Remi Beckett MD [address] [place] [phone] 08/18/2024 1:45 PM SERVICE DESK DIRECTOR Office Visit [facility] - ENT [address] [place] [phone] Neri Delgado MD [address] [place] [address] 08/30/2024 2:20 PM SERVICE DESK DIRECTOR Appointment [facility] [address] [place] [address] documented as of this encounter Visit Diagnoses Diagnosis Thyroid nodule- Primary Nontoxic uninodular goiter documented in this encounter
--- OUTSIDE RECORDS SUMMARY | 2024-07-26 08:45 | XMS_ITS | Encounter Summary ---
Author Organization [facility] Health Address [address] [place] [address] Care Team Providers Care Conservation Agent Name Role Phone Unavailable Primary Care Provider Unavailabl e Encounter Details Date Type Department Care Team (Latest Contact Info) Description 02/27/2020 12:57 PM CDT Hospital Encounter [facility] [address] [address] Cesar Brooks MD [address] [facility] [address] [place] [address] Discharge Disposition: Home or Self Care Social [...] fluticasone propionate (FLONASE) 50 MCG/ACT nasal spray [place] 2 sprays into each nostril 16 g [...] 500 tablets by mouth DAILY. 11/19/2016 08/01/2020 [place]-3 Fatty Acids (FISH OIL) 1000 MG capsule [...] duarte Contact Info) Description 08/02/2024 2:20 PM FLAG SIGNALER Appointment [facility] [address] [place] [address] 08/02/2024 3:00 PM FLAG SIGNALER Office Visit [facility] - Hematology/Oncology [address] [place] [address] [phone] Remi Beckett MD [address] [place] [address] [phone] 08/18/2024 1:45 PM FLAG SIGNALER Office Visit [facility] Phys[facility] - ENT [address] [place] [address] [phone] Neir Delgado MD [address] [place] [address] 08/30/2024 2:20 PM FLAG SIGNALER Appointment [facility] [address] [place] [address] documented as of this encounter Procedures Procedure Name Priority Date/Time Associated Diagnosis Comments XR HIP LEFT 2VW OR MORE Routine 02/27/2020 1:12 PM CDT Arthralgia of hip, unspecified laterality documented in this encounter Results * XR HIP LEFT 2VW OR MORE (02/27/2020 1:12 PM CDT) Anatomical Region Laterality Modality Pelvis, Lower Extremity [facility] 02/27/2020 1:59 PM CDT Impressions 02/27/2020 2:01 PM CDT IMPRESSION: Severe left hip arthritis, progressed. This report was electronically signed by NICO DU MD ??on 02/27/2020 2:01 PM . Narrative 02/27/2020 2:01 PM CDT Exam: 1. ??XR PELVIS 1 view 2. XR HIP LEFT 2VW History: ??M25.559: Arthralgia of hip, unspecified laterality Comparison: Left hip radiographs dated 08/10/2018 Findings: Left hip: No acute fracture or dislocation is present. There is severe arthritis with sllz-og-ftza contact, subchondral sclerosis, cysts, and osteophytes. Coexisting femoral head avascular necrosis is difficult to exclude. Pelvis: There is no displaced pelvic fracture. The pubic symphysis, sacroiliac joints, and right hip joint space are normal. Procedure Note Nico Du MD - 02/27/2020 Exam: 1. XR PELVIS 1 view 2. XR HIP LEFT 2VW History: M25.559: Arthralgia of hip, unspecified laterality Comparison: Left hip radiographs dated 08/10/2018 Findings: Left hip: No acute fracture or dislocation is present. There is severe arthritis with syoq-jq-bhhc contact, subchondral sclerosis, cysts, andosteophytes. Coexisting femoral head avascular necrosis is difficult to exclude. Pelvis: There is no displaced pelvic fracture. The pubic symphysis, sacroiliac joints, and right hip joint space are normal. IMPRESSION: Severe left hip arthritis, progressed. This report was electronically signed by NICO DU MD on02/27/2020 2:01 PM . Cesar Brooks MD DIAGNOSTIC IMAGING ORDERABLES documented in this encounter Visit Diagnoses Diagnosis Arthralgia of hip, unspecified laterality documented in this encounter
--- OUTSIDE RECORDS SUMMARY | 2024-07-26 08:45 | XMS_ITS | Encounter Summary ---
Author Organization [facility] Health Address [address] [place] [address] Care Team Providers Care Life Skills Coordinator Name Role Phone Unavailable Primary Care Provider Unavailabl e Reason for Visit * Reason Comments Pain Foot Encounter Details Date Type Department Care Team (Late st Contact Info) Description 04/02/2020 12:30 PM CDT Office Visit [facility] - Orthopedics [address] [place] [address], [place] [address] Marylu Bajwa APRN-CNP [address] [place] [address] [place] [address] Right foot pain (Primary Dx) Social History [...] the original note were not included. - [email or web address] Orthopaedic Surgery Clinic Brisa Hogan 04/02/2020 Thank [...] and given information regarding their diagnosis today. [facility] office contact information: Please contact our call center at , option #1 to make an appointment Our Locations: [facility] Office: [address] [place] [address] [address], [place] [address] Please contact the [place] at , if you have any further questions or concerns. [facility] [address] [place] [address], [address] [address] Please contact the [place] at , if you have any further questions or concerns. [facility] [address] [place] [address] Please contact JOSY Chapin( [phone] if you have any further questions or concerns. Sincerely, Marylu Bajwa APRN [email or web address] documented in this encounter Progress Notes * Marylu Bajwa APRN-CNP - 04/02/2020 12:51 PM CDT [facility] [address] [facility] [address] Dept: [phone] Dept Today we had the pleasure of seeing Brisa Hogan in our [facility] for Chief Complaint Patient [...] had any injections for her foot. Work: [employer] 3 days/week Current Smoker: Yes Past Medical [...] Contact Info) Description 08/02/2024 2:20 PM HAND SPRING REPAIRER Appointment [facility] [address] [place] [address] 08/02/2024 3:00 PM HAND SPRING REPAIRER Office Visit [facility] - Hematology/Oncology [address] [place] [address] [phone] Remi Beckett MD [address] [place] [address] [phone] 08/18/2024 1:45 PM HAND SPRING REPAIRER Office Visit [facility] - ENT [address] [place] [address] [phone] Neri Delgado MD [address] [place] [address] 08/30/2024 2:20 PM HAND SPRING REPAIRER Appointment [facility] [address] [place] [address] documented as of this encounter Visit Diagnoses Diagnosis Right foot pain- Primary Pain in limb documented in this encounter
--- OUTSIDE RECORDS SUMMARY | 2024-07-26 08:45 | XMS_ITS | Encounter Summary ---
Author Organization [facility] Health Address [address] [place] [address] Care Team Providers Care Seat Cover Cutter Name Role Phone Unavailable Primary Care Provider Unavailabl e Reason for Visit * Reason Comments Refill Request Encounter Details Date Type Department Care Team (Late st Contact Info) Description 03/06/2020 Refill [facility] [address] [facility] [address] [place] [address] Marylu Marie DO [address] [facility] 2L DIV OF [facility] [place] [address] Refill Request Social History Tobacco Use Types [...] st Contact Info) Description 08/02/2024 2:20 PM BAGGAGE PORTER Appointment [facility] [address] [place] [address] 08/02/2024 3:00 PM BAGGAGE PORTER Office Visit [facility] Physician [facility] - Hematology/Oncology [address] [place] [phone] Remi Beckett MD [address] [place] [phone] 08/18/2024 1:45 PM BAGGAGE PORTER Office Visit [facility] - ENT [address] [place] [phone] Neri Delgado MD [address] [place] [phone] 08/30/2024 2:20 PM BAGGAGE PORTER Appointment [facility] [address] [place] [address] documented as of this encounter Visit Diagnoses Diagnosis Allergic rhinitis, unspecified seasonality, unspecified trigger Primary osteoarthritis of left hip Primary localized osteoarthrosis, pelvic region and thigh documented in this encounter
--- OUTSIDE RECORDS SUMMARY | 2024-07-26 08:45 | XMS_ITS | Encounter Summary ---
Author Organization [facility] Address [address] [place] [address] Care Team Providers Care Associate Director Financial Aid Name Role Phone Unavailable Primary Care Provider Unavailabl e Reason for Referral * Radiology Services (Routine) - Closed Specialty Diagnoses / Procedures Referred By Contac t Referred To Contact Ultrasound Diagnoses Thyroid nodule Procedures CT GUIDED NEEDLE BIOPSY THYROID (56192) US THYROID FNA Taniya Grimes MD [address] [facility] 2L DIV [place] [address] [facility] [address] [place] [address] Referral ID Status Reason Start Date Expiration Date Visits Re quested Visits Authorized [id number] Closed 03/27/2020 06/26/2020 1 1 Encounter Details Date Type Department Care Team (Late st Contact Info) Description 03/18/2020 Orders Only [facility] 3L [address] [facility], [place] [address] Brandi Mock, PRODUCT SAFETY OFFICER-MARBLE FINISHER [address] [facility] FIRST [place] [address] Thyroid nodule Social History Tobacco [...] st Contact Info) Description 08/02/2024 2:20 PM FLOOR WORKER WELL SERVICE Appointment [facility] [address] [place] [address] 08/02/2024 3:00 PM FLOOR WORKER WELL SERVICE Office Visit [facility] Physician [facility] - Hematology/Oncology [address] [place] [phone] Remi Beckett MD [address] [place] [phone] 08/18/2024 1:45 PM FLOOR WORKER WELL SERVICE Office Visit [facility] - ENT [address] [place] [phone] Neri Delgado MD [address] [place] [address] 08/30/2024 2:20 PM FLOOR WORKER WELL SERVICE Appointment [facility] [address] [place] [phone] documented as of this encounter Results * CT GUIDED NEEDLE BIOPSY THYROID (98081) (04/18/2020 4:07 PM CDT) Anatomical Region Laterality [...] 5), was referred for ultrasound-guided fine-needle aspiration. Automatic Maintainer: Dr. Milan Quarles, Attending Physician Anesthesia: Local [...] (TR 5), wasreferred for ultrasound-guided fine-needle aspiration. Automatic Maintainer: Dr. Milan Quarles, Attending Physician Anesthesia: Local [...] entireprocedure. This report was electronically signed by Cheli KEENAND. on 04/27/2020 5:44 PM . Taniya Grimes MD CT ORDERABLES documented in this encounter Visit Diagnoses Diagnosis Thyroid nodule- Primary Nontoxic uninodular goiter Thyroid nodule Nontoxic uninodular goiter documented in this encounter
--- OUTSIDE RECORDS SUMMARY | 2024-07-26 08:45 | XMS_ITS | Encounter Summary ---
Author Organization [facility] Health Address [address] [facility] [place] [address] Care Team Providers Care Literacy Consultant Name Role Phone Unavailable Primary Care Provider Unavailabl e Encounter Details Date Type Department Care Team (Late Contact Info) Description 04/05/2020 Orders Only [facility] RAD CSM 3L [address] [facility], [place] [phone] Brandi Mock, ANIMAL SCIENTIST-ASSOCIATE APPLICATION DEVELOPER [address] [facility] FIRST [place] [address] Thyroid nodule Social History Tobacco Use Types [...] (Late Contact Info) Description 08/02/2024 2:20 PM RETAIL VISUAL MERCHANDISER Appointment [facility] [address] [place] [address] 08/02/2024 3:00 PM RETAIL VISUAL MERCHANDISER Office Visit [facility] Physician Group - Hematology/Oncology [address] [place] [phone] Remi Beckett MD [address] [place] [phone] 08/18/2024 1:45 PM RETAIL VISUAL MERCHANDISER Office Visit [facility] - ENT [address] [place] [phone] Neri Delgado MD [address] [place] [address] 08/30/2024 2:20 PM RETAIL VISUAL MERCHANDISER Appointment [facility] [address] [place] [address] documented as of this encounter Visit Diagnoses Diagnosis Thyroid nodule- Primary Nontoxic uninodular goiter documented in this encounter
--- OUTSIDE RECORDS SUMMARY | 2024-07-26 08:45 | XMS_ITS | Encounter Summary ---
Author Organization [facility] Health Address [address] [facility] [place] [address] Care Team Providers Care Computer Systems Design Analyst Name Role Phone Unavailable Primary Care Provider Unavailabl e Reason for Visit * Reason Onset Date Comments Medication Prior Auth Request 03/25/2020 Encounter Details Date Type Department Care Team ([facility] Contact Info) Description 03/25/2020 Telephone [facility] [address] [place] [address], [place] [phone] Taniya Grimes MD [address] [place] [address] OF [facility] [place] [phone] Medication Prior Auth Request Social History Tobacco [...] Prior auth request submitted on line at [employer]. Office notes submitted with request Yes. Waiting for insurance response. Cover My Meds perez:[email or web address] documented in this encounter Plan of Treatment Upcoming Encounters Date Type Department Care Team ([facility] Contact Info) Description 08/02/2024 2:20 PM SEWER MAINTENANCE SUPERVISOR Appointment [facility] [address] [place] [phone] 08/02/2024 3:00 PM SEWER MAINTENANCE SUPERVISOR Office Visit [facility] Physician Group - Hematology/Oncology [address] [place] [phone] Remi Beckett MD [address] [place] [phone] 08/18/2024 1:45 PM SEWER MAINTENANCE SUPERVISOR Office Visit [facility] Physician Group - ENT [address] [place] [phone] Neri Delgado MD [address] [place] [address] 08/30/2024 2:20 PM SEWER MAINTENANCE SUPERVISOR Appointment [facility] [address] [place] [address] documented as of this encounter Visit Diagnoses Not on filedocumented in this encounter
--- OUTSIDE RECORDS SUMMARY | 2024-07-26 08:45 | XMS_ITS | Encounter Summary ---
Author Organization [facility] Health Address [address] [facility] [place] [address] Care Team Providers Care Senior Payroll Specialist Name Role Phone Unavailable Primary Care Provider Unavailabl e Reason for Visit * Reason Onset Date Comments MEDICATION REFILL 03/22/2020 Encounter Details Date Type Department Care Team (Late st Contact Info) Description 03/22/2020 [facility] [address] [place] [address], Second Level [phone] Marylu Marie DO [address] [place] [address] OF [facility] INTERNAL MEDICINE [address] MEDICATION REFILL Social History Tobacco Use Types [...] st Contact Info) Description 08/02/2024 2:20 PM STEAM CONDITIONER OPERATOR Appointment [facility] [address] [place] [address] 08/02/2024 3:00 PM STEAM CONDITIONER OPERATOR Office Visit [facility] Physician Group - Hematology/Oncology [address] [place] [phone] Remi Beckett MD [address] [place] [phone] 08/18/2024 1:45 PM STEAM CONDITIONER OPERATOR Office Visit [facility] Physician [facility] - ENT [address] [place] [phone] Neri Delgado MD [address] [place] [phone] 08/30/2024 2:20 PM STEAM CONDITIONER OPERATOR Appointment [facility] [address] [place] [address] documented as of this encounter Visit Diagnoses Diagnosis Gastroesophageal reflux disease with esophagitis documented in this encounter
--- OUTSIDE RECORDS SUMMARY | 2024-07-26 08:45 | XMS_ITS | Encounter Summary ---
Author Organization [facility] Health Address [address] [facility] [place] [address] Care Team Providers Care Double Cut Sawyer Name Role Phone Unavailable Primary Care Provider Unavailabl e Reason for Visit * Reason Onset Date Comments Order 02/01/2020 Encounter Details Date Type Department Care Team (Late st Contact Info) Description 02/01/2020 Telephone [facility] [address] [address] Marylu Marie DO [address] OF [facility] [place] [address] Order Social History Tobacco Use Types Packs/Day [...] AM CDT New order placed. Forwarded to [facility] front end application developer to print and fax. * Telephone Encounter - Haleigh Delgadillo RN - 02/01/2020 2:01 PM CDT Marcelle Site Safety Representative is calling from [facility] asking for Dr. Anaya to please Sign [...] Contact Info) Description 08/02/2024 2:20 PM SENIOR CLINICAL DATA MANAGER Appointment [facility] [address] [place] [address] 08/02/2024 3:00 PM SENIOR CLINICAL DATA MANAGER Office Visit [facility] Physician Group - Hematology/Oncology [address] [place] [phone] Remi Beckett MD [address] [place] [phone] 08/18/2024 1:45 PM SENIOR CLINICAL DATA MANAGER Office Visit [facility] - ENT [address] [place] [phone] Neri Delgado MD [address] [place] [address] 08/30/2024 2:20 PM SENIOR CLINICAL DATA MANAGER Appointment [facility] [address] [place] [address] documented as of this encounter Visit Diagnoses Diagnosis Breast cancer screening- Primary Breast screening, unspecified documented in this encounter
--- OUTSIDE RECORDS SUMMARY | 2024-07-26 08:45 | XMS_ITS | Encounter Summary ---
Author Organization [facility] Address [address] [facility] [place] [address] Care Team Providers Care Occupational Safety And Health Manager Name Role Phone Unavailable Primary Care Provider Unavailabl e Reason for Referral * Radiology Services (Routine) - Closed Specialty Diagnoses / Procedures Referred By Contac t Referred To Contact Ultrasound Diagnoses Thyroid nodule Procedures US THYROID LiebenthalMarylu manzano, DO [address] [facility] 2L DIV OF [facility] [place] [address] [facility] [address] [place] [address] Referral ID Status Reason Start Date Expiration Date Visits Re quested Visits Authorized [id number] Closed 02/15/2020 02/14/2021 1 1 * Consultation (Routine) - Closed Specialty Diagnoses / Procedures Referred By Contac t Referred To Contact Orthopedics Diagnoses Primary osteoarthritis of left hip Marylu Marie, DO [address] [facility] 2L DIV OF [facility] [place] [address] Cesar Brooks MD [address] [facility] [place] [facility] [address] [place] [address] Referral ID Status Reason Start Date Expiration Date V isits Requested Visits Authorized [id number] Closed Specialty Services Required 02/15/2020 02/14/2021 1 1 Reason for Visit * Reason Comments Follow-up Encounter Details Date Type Department Care Team (Late st Contact Info) Description 02/15/2020 3:00 PM CDT Office Visit [facility] Internal Medicine [address] [place] [address] Frank DO Marylu [address] 2L DIV OF [facility] [place] [address] Primary osteoarthritis of left hip (Primary Dx); [...] to be seen. Please call us at [phone], option 1 thenoption 1 in the morning you would like to be seen. For scheduling routine appointments, requesting refills or leaving a message for your doctor, the office phone is [phone]. You will be given options to get to the assistance you need. Phone lines are open from 8:00 am to4:30 pm Wednesday through Wednesday. All prescription refills must be requested during regular office phone hours. Our fax number is [phone]. After hours urgent calls that cannot wait untill phone lines are open on the next day are given to the General Internal Medicine physician semiconductor wafers tester. Please call [phone]. Identify yourself as a patient in our practice and give the window machine operator your doctor's name. The window machine operator will contact the physician semiconductor wafers tester. You can generally expect a return call within 30 minutes. On weekends, physicians are seeing hospitalized patients and there maybe a longer wait. Visit our website at [email or web address] for information about our practice and an interactive health encyclopedia. Our clinic's missed appointment policy is: - Patients with 3 consecutively missed appointments OR 3 missed appointments in a 12 month period will no longer be seen by General Internal Medicine. They will be asked to seek Primary Care outside of [facility]. - A missed appointment is defined as: * An appointment cancelled less than 24 hours in advance *Arriving to a scheduled appointment too late to be seen (Patients who arrive to clinic later than their scheduled appointment time may not be seen) * Not showing up for an appointment Our office is on the move! Beginning March 04, your [facility] doctor will see you in a new location. [facility] Specialized Medicine 2nd Floor [address] [place] [address] documented in this encounter Progress Notes * Marylu Marie DO - 02/15/2020 3:00 PM CDT [facility] General Internal Medicine Established Patient Note [...] TID. Psychiatry every three months. Dr. Foster ([phone]). Doing virtual visits currently. Has a therapist as well - Vianey ([phone]). Tobacco use - insurance won't pay for hypnosis, was taking chantix and had weight gain so discontinued the medication. Smoking no more than 10 cigarettes per day. Does not finish the cigarettes. Tried quitting cold turkey and got down to 7 cigarettes but was unable to go down more. Dr. Bennett ([phone]) in GI in [place], [place] where she last had colonoscopy. Past [...] hip with degenerative changes. Seen previously by [facility] orthopedics who instructed tobacco cessation prior to [...] st Contact Info) Description 08/02/2024 2:20 PM JAVA MOBILE DEVELOPER Appointment [facility] [address] [place] [address] 08/02/2024 3:00 PM JAVA MOBILE DEVELOPER Office Visit [facility] Physician Group - Hematology/Oncology [address] [place] [phone] Remi Beckett MD [address] [place] [phone] 08/18/2024 1:45 PM JAVA MOBILE DEVELOPER Office Visit [facility] Physician Group - ENT [address] [place] [phone] Neri Delgado MD [address] [place] [address] 08/30/2024 2:20 PM JAVA MOBILE DEVELOPER Appointment [facility] [address] [place] [address] Scheduled Referrals Name Type Priority Associated Diagnoses Orde r Schedule AMB REFERRAL TO ORTHOPEDICS Outpatient Referral Routine Primary osteoarthritis of left hip 1 Occurrences starting 02/15/2020 until 02/14/2021 documented as of this encounter Results * (ABNORMAL) COMPREHENSIVE METABOLIC PANEL (03/07/2020 3:19 PM [facility]) BUN 13 7 - 26 mg/dL 03/07/2020 4:12 PM [facility] Creatinine 0.8 0.6 - 1.2 mg/dL 03/07/2020 4:12 PM [facility] Sodium 143 136 - 145 mmol/L 03/07/2020 4:12 PM [facility] Potassium 3.9 3.5 - 4.5 mmol/L 03/07/2020 4:12 PM [facility] Chloride 106 98 - 107 mmol/L 03/07/2020 4:12 PM [facility] CO2 33(H) 22 - 29 mmol/L 03/07/2020 4:12 PM [facility] Glucose 57(L) 70 - 115 mg/dL 03/07/2020 4:12 PM [facility] Calcium 8.8 8.4 - 10.2 mg/dL 03/07/2020 4:12 PM [facility] Protein Total 7.1 6.0 - 8.3 g/dL 03/07/2020 4:12 PM [facility] Albumin 3.8 3.4 - 5.0 g/dL 03/07/2020 4:12 PM [facility] Bilirubin Total 0.5 0.2 - 1.2 mg/dL 03/07/2020 4:12 PM [facility] Alkaline Phosphatase 94 40 - 150 Units/L 03/07/2020 4:12 PM [facility] ALT 26 0 - 55 Units/L 03/07/2020 4:12 PM [facility] AST 23 5 - 34 Units/L 03/07/2020 4:12 PM [facility] Anion Gap 8 8 - 18 03/07/2020 4:12 PM [facility] BUN/Creatinine Ratio 16 7 - 23 03/07/2020 4:12 PM [facility] Osmolality Calculated 294 270 - 300 mOsm/kg 03/07/2020 4:12 PM [facility] Albumin/Globulin Ratio 1.2 1.1 - 2.3 03/07/2020 4:12 PM [facility] eGFR >60 >60 mL/min/1.7 3 m2 03/07/2020 4:12 PM T [facility] Blood BLOOD SPECIMEN / Unknown Lab Venipuncture / Unknown 03/07/2020 3:19 PM CDT 03/07/2020 3:45 PM CDT Marylu Frank CHE LAB - CHEMISTRY ASH WEAVER Performing Organization Address City/[facility] Co de Phone Number [facility] [address] [place] [address], [facility] [phone] * LIPID PROFILE (03/07/2020 3:19 PM CDT) Cholesterol Total 150 <200 mg/dL 03/07/2020 4:12 PM T [facility] HDL 51 >40 mg/dL 03/07/2020 4:12 PM [facility] Comment: ATP III Classification of HDL Cholesterol: ? <40 mg/dL: ??Considered a major risk factor. ? >60 mg/dL: ??Considered a negative risk factor. ? LDL Calculated 80 <100 mg/dL 03/07/2020 4:12 PM [facility] Comment: ATP III Classification of LDL Cholesterol: ?<100 mg/dL: ??Optimal ? 100 - 129 mg/dL: ??Near Optimal/Above Optimal ? 130 - 159 mg/dL: ??Borderline High ? 160 - 189 mg/dL: ??High ?>190 mg/dL: ??Very High ? Triglycerides 93 <150 mg/dL 03/07/2020 4:12 PM [facility] Comment: ATP III Classification of Triglycerides: ?<150 mg/dL: ??Normal ? 150 - 199 mg/dL: ??Borderline High ? 200 - 400 mg/dL: ??High ?>500 mg/dL: ??Very High Blood BLOOD SPECIMEN / Unknown Lab Venipuncture / Unknown 03/07/2020 3:19 PM CDT 03/07/2020 3:45 PM CDT Marylu Liebenthal DO LAB - CHEMISTRY ORDE OWEN Performing Organization Address City/[facility]/ZIP Co de Phone Number [facility] [address] [place] [address], [facility] [phone] * HEMOGLOBIN A1C (03/07/2020 3:19 PM CDT) Hemoglobin A1c 5.5 4.4 - 6.3 % 03/08/2020 9:49 AM CDT [facility] Estimated Average Glucose 111 mg/dL 03/08/2020 9:49 AM CDT [facility] Comment: HbA1c Interpretation: Treatment target values recommended by ADA and other clinical organizations should be used to evaluate metabolic control in patients. Treatment Target Values: Normal : < 5.7% Pre-diabetes: 5.7-6.4% Diabetes: Equal to or greater than 6.5% Reference: British Diabetes Association Standards of Care in Diabetes -2014 In patients 70 years and older consider HbA1c target range of 7.0-7.5% Reference: ??Diabetes Mellitus in Older People: Position Statement on behalf of the International Association of Gerontology and Geriatrics (IAGG), the Diabetes Working Democrat for Older People (EDWPOP), and the International Task Force of Experts in Diabetes. ??Jus Blackman, et al. J British Medical Directors Association. 2012 Test results diagnostic of diabetes should be repeated for confirmation. The Sebia Capillary 2 assay for the measurement of HbA1c is a National Glycohemoglobin Standardization Program (NGSP)certified method. Blood BLOOD SPECIMEN / Unknown Lab Venipuncture / Unknown 03/07/2020 3:19 PM CDT 03/07/2020 3:43 PM CDT [facility] LAB - CHEMISTRY ASH WEAVER Performing Organization Address City/[facility]/ZIP Co de Phone Number [facility] [address] [place] [address], [place] [phone] * HEPATITIS C AB SCREEN RFLX NAAT QUANT (03/07/2020 3:19 PM CDT) Pathologist [facility] Hepatitis C Antibody Non-react oswaldo Non-reac tive 03/07/2020 4:28 PM CDT [facility] Comment:Hepatitis C Antibody screen indicates no [...] CDT Marylu Garciahbach LAB - CHEMISTRY ASH WEAVER [facility] [address] [place] [phone], [place] [phone] * TSH (03/07/2020 3:19 PM CDT) Pathologist [facility] TSH 1.520 0.350 - 4.940 uIU/mL 03/07/2020 4:30 PM CDT [facility] Blood BLOOD SPECIMEN / Unknown Lab Venipuncture / Unknown 03/07/2020 3:19 PM CDT 03/07/2020 3:45 PM CD[facility] - [facility] ASH WEVAER [address] [address], [place] [phone] * US THYROID (03/07/2020 3:06 PM CDT) [...] its size. Dictated by Kendall Quiroz MD (Supervisor Patching) I, Dr. SARAH CARRENO M.D. have personally [...] TR 4 nodule, recommend short-term follow-up (image [id number]). The second nodule is well-circumscribed, hypoechoic, solid nodule, measuring 0.6 x 0.6 x 0.3 cm; this is a TR 4 nodule, which is not suspicious (image [id number]). The isthmus is mildly thickened. Vascularity of [...] TR 4 nodule, recommend short-term follow-up (image [id number]). The second nodule is well-circumscribed, hypoechoic, solid nodule, measuring 0.6 x 0.6 x 0.3 cm; this is a TR 4 nodule, which is not suspicious (image [id number]). The isthmus is mildly thickened. Vascularity of [...] its size. Dictated by Kendall Quiroz MD (Supervisor Patching) I, Dr. SARAH CARRENO M.D. have personally [...]
--- OUTSIDE RECORDS SUMMARY | 2024-07-26 08:45 | XMS_ITS | Encounter Summary ---
Author Organization [facility] Health Address [address] [facility] [place] [address] Care Team Providers Care Motor Vehicle Compliance Analyst Name Role Phone Unavailable Primary Care Provider Unavailabl e Encounter Details Date Type Department Care Team (Latest Contact Info) Description 03/07/2020 2:32 PM CDT - 03/07/2020 11:59 PM CDT Hospital Encounter [facility] LAB OP DRAW STATION [address] [place] [phone] Marylu Marie DO [address] OF [facility] [place] [address] Discharge Disposition: Home or Self Care Social [...] fluticasone propionate (FLONASE) 50 MCG/ACT nasal spray [place] 2 sprays into each nostril 16 g [...] of Function 60 tablet 2 02/27/2020 07/16/2020 [place]-3 Fatty Acids (FISH OIL) 1000 MG capsule [...] st Contact Info) Description 08/02/2024 2:20 PM BASS STRING WINDER Appointment [facility] [address] [place] [address] 08/02/2024 3:00 PM BASS STRING WINDER Office Visit [facility] - Hematology/Oncology [address] [place] [phone] Remi Beckett MD [address] [place] [phone] 08/18/2024 1:45 PM BASS STRING WINDER Office Visit [facility] - ENT [address] [place] [phone] Neri Delgado MD [address] [place] [address] 08/30/2024 2:20 PM BASS STRING WINDER Appointment [facility] [address] [place] [address] documented as of this encounter Procedures Procedure [...] 7 - 26 mg/dL 03/07/2020 4:12 PM [facility] Creatinine 0.8 0.6 - 1.2 mg/dL 03/07/2020 4:12 PM [facility] Sodium 143 136 - 145 mmol/L 03/07/2020 4:12 PM [facility] Potassium 3.9 3.5 - 4.5 mmol/L 03/07/2020 4:12 PM [facility] Chloride 106 98 - 107 mmol/L 03/07/2020 4:12 PM [facility] CO2 33(H) 22 - 29 mmol/L 03/07/2020 4:12 PM [facility] Glucose 57(L) 70 - 115 mg/dL 03/07/2020 4:12 PM [facility] Calcium 8.8 8.4 - 10.2 mg/dL 03/07/2020 4:12 PM [facility] Protein Total 7.1 6.0 - 8.3 g/dL 03/07/2020 4:12 PM [facility] Albumin 3.8 3.4 - 5.0 g/dL 03/07/2020 4:12 PM [facility] Bilirubin Total 0.5 0.2 - 1.2 mg/dL 03/07/2020 4:12 PM [facility] Alkaline Phosphatase 94 40 - 150 Units/L 03/07/2020 4:12 PM [facility] ALT 26 0 - 55 Units/L 03/07/2020 4:12 PM [facility] AST 23 5 - 34 Units/L 03/07/2020 4:12 PM [facility] Anion Gap 8 8 - 18 03/07/2020 4:12 PM T [facility] BUN/Creatinine Ratio 16 7 - 23 03/07/2020 4:12 PM T [facility] Osmolality Calculated 294 270 - 300 mOsm/kg 03/07/2020 4:12 PM T [facility] Albumin/Globulin Ratio 1.2 1.1 - 2.3 03/07/2020 4:12 PM T [facility] eGFR >60 >60 mL/min/1.7 3 m2 03/07/2020 4:12 PM [facility] Blood BLOOD SPECIMEN / Unknown Lab Venipuncture / Unknown 03/07/2020 3:19 PM CDT 03/07/2020 3:45 PM CDT Marylu Marie DO LAB - CHEMISTRY ASH WEAVER Performing Organization Address City/State/[facility] Co de Phone Number [facility] [address] [place] [phone], [facility] [place] [phone] * LIPID PROFILE (03/07/2020 3:19 PM CDT) Cholesterol Total 150 <200 mg/dL 03/07/2020 4:12 PM [facility] HDL 51 >40 mg/dL 03/07/2020 4:12 PM [facility] Comment: ATP III Classification of HDL Cholesterol: ? <40 mg/dL: ??Considered a major risk factor. ? >60 mg/dL: ??Considered a negative risk factor. ? LDL Calculated 80 <100 mg/dL 03/07/2020 4:12 PM T [facility] Comment: ATP III Classification of LDL Cholesterol: ?<100 mg/dL: ??Optimal ? 100 - 129 mg/dL: ??Near Optimal/Above Optimal ? 130 - 159 mg/dL: ??Borderline High ? 160 - 189 mg/dL: ??High ?>190 mg/dL: ??Very High ? Triglycerides 93 <150 mg/dL 03/07/2020 4:12 PM CDT [facility] Comment: ATP III Classification of Triglycerides: ?<150 mg/dL: ??Normal ? 150 - 199 mg/dL: ??Borderline High ? 200 - 400 mg/dL: ??High ?>500 mg/dL: ??Very High Blood BLOOD SPECIMEN / Unknown Lab Venipuncture / Unknown 03/07/2020 3:19 PM CDT 03/07/2020 3:45 PM CDT Marylu Marie DO LAB - CHEMISTRY ASH WEAVER [facility] [address] [place] [address], [facility] [place] [phone] * HEMOGLOBIN A1C (03/07/2020 3:19 PM CDT) Hemoglobin A1c 5.5 4.4 - 6.3 % 03/08/2020 9:49 AM CDT [facility] Estimated Average Glucose 111 mg/dL 03/08/2020 9:49 AM T [facility] Comment: HbA1c Interpretation: Treatment target values recommended by ADA and other clinical organizations should be used to evaluate metabolic control in patients. Treatment Target Values: Normal : < 5.7% Pre-diabetes: 5.7-6.4% Diabetes: Equal to or greater than 6.5% Reference: [place] Diabetes Association Standards of Care in Diabetes -2014 In patients 70 years and older consider HbA1c target range of 7.0-7.5% Reference: ??Diabetes Mellitus in Older People: Position Statement on behalf of the International Association of Gerontology and Geriatrics (IAGG), the Diabetes Working Constitution Party for Older People (EDWPOP), and the International Task Force of Experts in Diabetes. ??Jus Blackman et al. J [place] Medical Directors Association. 2012 Test results diagnostic of diabetes should be repeated for confirmation. The Sebia Capillary 2 assay for the measurement of HbA1c is a National Glycohemoglobin Standardization Program (NGSP)certified method. Blood BLOOD SPECIMEN / Unknown Lab Venipuncture / Unknown 03/07/2020 3:19 PM CDT 03/07/2020 3:43 PM CDT Marylu [place] LAB - CHEMISTRY ASH WEAVER Performing Organization Address City/[facility]/ZIP Co de Phone Number [address] [address], [place] [phone] * HEPATITIS C AB SCREEN RFLX NAAT QUANT (03/07/2020 3:19 PM CDT) Pathologist [facility] Hepatitis C Antibody Non-react oswaldo Non-reac tive [...] PM CDT 03/07/2020 3:43 PM CDT [facility] - [facility]Y ASH WEVAER Performing Organization Address [facility]/ZIP Co de Phone Number [address] [address], [place] [phone] * TSH (03/07/2020 3:19 PM CDT) [facility] TSH 1.520 0.350 - 4.940 uIU/mL 03/07/2020 4:30 PM CDT [facility] Blood BLOOD SPECIMEN / Unknown Lab Venipuncture / Unknown 03/07/2020 3:19 PM CDT 03/07/2020 3:45 PM CDT [facility] - CHEMISTRY ASH WEAVER Performing Organization Address City/[facility]/ZIP Co de Phone Number [address] [address], [place] [phone] * CBC W/O DIFFERENTIAL (03/07/2020 3:19 PM CDT) WBC 7.9 3.5 - 10.5 10? 3 /uL 03/07/2020 4:02 PM [facility] RBC 4.54 3.90 - 5.00 10? 6 /uL 03/07/2020 4:02 PM [facility] Hemoglobin 13.3 12.0 - 15.5 g/dL 03/07/2020 4:02 PM [facility] Hematocrit 40.5 35.0 - 45.0 % 03/07/2020 4:02 PM [facility] MCV 89.2 81.0 - 97.0 fL 03/07/2020 4:02 PM [facility] MCH 29.3 28.0 - 34.0 pg 03/07/2020 4:02 PM [facility] MCHC 32.8 32.0 - 36.0 g/dL 03/07/2020 4:02 PM [facility] Platelet Count 266 150 - 400 10? 3 /uL 03/07/2020 4:02 PM [facility] RDW-SD 41.3 36.0 - 50.0 fL 03/07/2020 4:02 PM [facility] RDW-CV 12.5 11.2 - 14.8 % 03/07/2020 4:02 PM [facility] MPV 9.8 9.3 - 12.8 fL 03/07/2020 4:02 PM [facility] nRBC Absolute 0.00 0 10? 3 /uL 03/07/2020 4:02 PM [facility] nRBC Auto 0.0 0 /100 WBC 03/07/2020 4:02 PM [facility] Blood BLOOD SPECIMEN / Unknown Lab Venipuncture / Unknown 03/07/2020 3:19 PM CDT 03/07/2020 3:43 PM T Marylu Marie DO LAB - HEMATOLOGY ORD ERABLES [facility] [address] [place] [phone], [facility] [place] [phone] documented in this encounter Visit Diagnoses Diagnosis Well adult exam Routine general medical examination at a health care facility Thyroid nodule Nontoxic uninodular goiter Encounter for hepatitis C screening test for low risk patient Diabetes mellitus screening Screening for diabetes mellitus Hyperlipidemia, unspecified hyperlipidemia type documented in this encounter
--- OUTSIDE RECORDS SUMMARY | 2024-07-26 08:45 | XMS_ITS | Encounter Summary ---
Author Organization [facility] Health Address [address] [facility] [place] [address] Care Team Providers Care Cognos Developer Name Role Phone Unavailable Primary Care Provider Unavailabl e Encounter Details Date Type Department Care Team (Latest Contact Info) Description 02/27/2020 12:57 PM CDT Hospital Encounter [facility] [address] [address] Cesar Brooks MD [address] [facility] [address] [place] [address] Discharge Disposition: Home or Self Care Social [...] propionate (FLONASE) 50 MCG/ACT nasal spray [place] 2 sprays into each nostril 16 g [...] 500 tablets by mouth DAILY. 11/19/2016 08/01/2020 [place]-3 Fatty Acids (FISH OIL) 1000 MG capsule [...] duarte Contact Info) Description 08/02/2024 2:20 PM CRM SPECIALIST Appointment [facility] [address] [place] [address] 08/02/2024 3:00 PM CRM SPECIALIST Office Visit [facility] - Hematology/Oncology [address] [place] [phone] Remi Beckett MD [address] [place] [phone] 08/18/2024 1:45 PM CRM SPECIALIST Office Visit [facility] - ENT [address] [place] [phone] Neri Delgado MD [address] [place] [address] 08/30/2024 2:20 PM CRM SPECIALIST Appointment [facility] [address] [place] [address] documented as of this encounter Procedures Procedure [...] is present. There is severe arthritis with eoll-yr-pgtm contact, subchondral sclerosis, cysts, and osteophytes. Coexisting [...] is present. There is severe arthritis with tdth-om-jddr contact, subchondral sclerosis, cysts, andosteophytes. Coexisting femoral [...]
--- OUTSIDE RECORDS SUMMARY | 2024-07-26 08:45 | XMS_ITS | Encounter Summary ---
Author Organization [facility] Health Address [address] [facility] [place] [address] Care Team Providers Care Transit Man Name Role Phone Unavailable Primary Care Provider Unavailabl e Reason for Visit * Consultation (Routine) - Closed Specialty Diagnoses / Procedures Referred By Contac t Referred To Contact Orthopedics Diagnoses Primary osteoarthritis of left hip Marylu Marie DO [address] [place] [address] DIV OF [facility] [place] [address] Cesar Brooks MD [address] [facility] [address] [place] [address] Referral ID Status Reason Start Date Expiration Date V isits Requested Visits Authorized [id number] Closed Specialty Services Required 02/15/2020 02/14/2021 1 1 Encounter Details Date Type Department Care Team (Latest Contact Info) Description 02/27/2020 1:30 PM CDT Office Visit [facility] - Orthopedics [address] [place] [address], [place] [phone] Cesar Brooks MD [address] [facility] [address] [place], [place] [phone] Primary osteoarthritis of left hip (Primary Dx) [...] propionate (FLONASE) 50 MCG/ACT nasal spray [place] 2 sprays into each nostril 16 g 0 ??? folic acid 400 MCG tablet Take 400 mcg by mouth DAILY. ??? gabapentin (NEURONTIN) 300 MG capsule Take 1 capsule by mouth 3 times daily 90 capsule 5 ??? ibuprofen (MOTRIN) 800 MG tablet 1 ??? lidocaine (LMX 4) 4 % cream ??? magnesium 500 MG tablet Take 500 tablets by mouth DAILY. ??? [place]-3 Fatty Acids (FISH OIL) 1000 MG capsule [...] st Contact Info) Description 08/02/2024 2:20 PM MANAGEMENT INFORMATION SYSTEMS DIRECTOR Appointment [address] [address] 08/02/2024 3:00 PM MANAGEMENT INFORMATION SYSTEMS DIRECTOR Office Visit [facility] - Hematology/Oncology [address] [place] [phone] Remi Beckett MD [address] [place] [phone] 08/18/2024 1:45 PM MANAGEMENT INFORMATION SYSTEMS DIRECTOR Office Visit [facility] - ENT [address] [place] [phone] Neri Delgado MD [address] [place] [address] 08/30/2024 2:20 PM MANAGEMENT INFORMATION SYSTEMS DIRECTOR Appointment [facility] [address] [place] [address] documented as of this encounter Visit Diagnoses Diagnosis Primary osteoarthritis of left hip- Primary Primary localized osteoarthrosis, pelvic region and thigh documented in this encounter
--- OUTSIDE RECORDS SUMMARY | 2024-07-26 08:45 | XMS_ITS | Encounter Summary ---
Author Organization [facility] Address [address] [facility] [place] [address] Care Team Providers Care Gift Manager Name Role Phone Unavailable Primary Care Provider Unavailabl e Reason for Visit * Radiology Services (Routine) - Closed Specialty Diagnoses / Procedures Referred By Contac t Referred To Contact Ultrasound Diagnoses Thyroid nodule Procedures US THYROID Marylu Marie DO [address] [facility] 2L DIV OF [facility] [place] [address] [phone] Referral ID Status Reason Start Date Expiration Date Visits Re quested Visits Authorized [id number] Closed 02/15/2020 02/14/2021 1 1 Encounter Details Date Type Department Care Team (Latest Contact Info) Description 03/07/2020 2:30 PM CDT - 03/07/2020 2:31 PM CDT Hospital Encounter [place] [address] [place] [phone] Marylu Marie DO [address] [place] [address] 2L DIV OF [facility] [place] [address] Discharge Disposition: Home or Self Care Social [...] fluticasone propionate (FLONASE) 50 MCG/ACT nasal spray [place] 2 sprays into each nostril 16 g [...] of Function 60 tablet 2 02/27/2020 07/16/2020 [place]-3 Fatty Acids (FISH OIL) 1000 MG capsule [...] st Contact Info) Description 08/02/2024 2:20 PM CONVERTIBLE POWER SHOVEL OPERATOR Appointment [facility] [address] [place] [address] 08/02/2024 3:00 PM CONVERTIBLE POWER SHOVEL OPERATOR Office Visit [facility] - Hematology/Oncology [address] [place] [phone] Remi Beckett MD [address] [place] [phone] 08/18/2024 1:45 PM CONVERTIBLE POWER SHOVEL OPERATOR Office Visit [facility] - ENT [address] [place] [phone] Neri Delgado MD [address] [place] [address] 08/30/2024 2:20 PM CONVERTIBLE POWER SHOVEL [place] [address] documented as of this encounter Procedures Procedure [...] its size. Dictated by Kendall Quiroz MD (Branch Service Leader) I, Dr. SARAH CARRENO M.D. have personally [...] TR 4 nodule, recommend short-term follow-up (image [id number]). The second nodule is well-circumscribed, hypoechoic, solid nodule, measuring 0.6 x 0.6 x 0.3 cm; this is a TR 4 nodule, which is not suspicious (image [id number]). The isthmus is mildly thickened. Vascularity of the thyroid is normal. Procedure Note Sarah Carrneo MD - 03/12/2020 EXAMINATION: Thyroid sonogram HISTORY: [...] TR 4 nodule, recommend short-term follow-up (image [id number]). The second nodule is well-circumscribed, hypoechoic, solid nodule, measuring 0.6 x 0.6 x 0.3 cm; this is a TR 4 nodule, which is not suspicious (image [id number]). The isthmus is mildly thickened. Vascularity of [...] its size. Dictated by Kendall Quiroz MD (Branch Service Leader) I, Dr. SARAH CARRENO M.D. have personally reviewed and interpreted this examination/study. This report was electronically signed by SARAH CARRENO M.D. on 03/12/2020 9:04 AM . Marylu GARCIA ORDERABLES documented in this encounter Visit Diagnoses Diagnosis Thyroid nodule Nontoxic uninodular goiter documented in this encounter
--- OUTSIDE RECORDS SUMMARY | 2024-07-26 08:45 | XMS_ITS | Encounter Summary ---
Author Organization [facility] Health Address [address] [facility] [place] [address] Care Team Providers Care Dietitian Name Role Phone Unavailable Primary Care Provider Unavailabl e Encounter Details Date Type Department Care Team (Late Contact Info) Description 02/26/2020 Orders Only [facility] - Orthopedics [address] [place] [phone] Cesar Brooks MD [address] [address] Arthralgia of hip, unspecified laterality Social History [...] (Late Contact Info) Description 08/02/2024 2:20 PM WOODWORKING MACHINE OFFBEARER Appointment [facility] [address] [place] [address] 08/02/2024 3:00 PM WOODWORKING MACHINE OFFBEARER Office Visit [facility] - Hematology/Oncology [address] [place] [phone] Remi Beckett MD [address] [place] [phone] 08/18/2024 1:45 PM WOODWORKING MACHINE OFFBEARER Office Visit [facility] - ENT [address] [place] [phone] Neri Delgado MD [address] [place] [address] 08/30/2024 2:20 PM WOODWORKING MACHINE OFFBEARER Appointment [facility] [address] [place] [address] documented as of this encounter Results * [...] is present. 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 Coexisting [...] is present. There is severe arthritis with ngmp-oa-zwwn contact, subchondral sclerosis, cysts, andosteophytes. Coexisting femoral [...] Region Laterality Modality Pelvis, Lower Extremity [facility] 02/27/2020 1:59 PM CDT Impressions 02/27/2020 [...] is present. There is severe arthritis with kmbw-sg-qzsf contact, subchondral sclerosis, cysts, and osteophytes. Coexisting [...] is present. There is severe arthritis with plvr-ef-yfna contact, subchondral sclerosis, cysts, andosteophytes. Coexisting femoral [...]
--- OUTSIDE RECORDS SUMMARY | 2024-07-26 08:45 | XMS_ITS | Encounter Summary ---
Author Organization [facility] Health Address [address] [place] [address] Care Team Providers Care Agricultural Technical Officer Name Role Phone Unavailable Primary Care Provider Unavailabl e Encounter Details Date Type Department Care Team (Late Contact Info) Description 04/01/2020 Orders Only [facility] - Orthopedics [address] [place] [address], [facility] [place] [address] Marylu Bajwa, STEEL FLOOR PAN PLACING SUPERVISOR-FAMILY MEDICINE CHAIR [address] [place] [address] [place] [address] Right foot pain Social History Tobacco Use [...] (Late Contact Info) Description 08/02/2024 2:20 PM SUPERVISOR CALIBRATION Appointment [facility] [address] [place] [address] 08/02/2024 3:00 PM SUPERVISOR CALIBRATION Office Visit [facility] - Hematology/Oncology [address] [place] [phone] Remi Beckett MD [address] [place] [phone] 08/18/2024 1:45 PM SUPERVISOR CALIBRATION Office Visit [facility] - ENT [address] [place] [phone] Neri Delgado MD [address] [place] [address] 08/30/2024 2:20 PM SUPERVISOR CALIBRATION Appointment [facility] [address] [place] [address] documented as of this encounter Results * [...] MD on04/02/2020 1:12 PM . Marylu Bajwa APRN-FAMILY MEDICINE CHAIR DIAGNOSTIC IMAG ING ORDERABLES documented in this encounter Visit Diagnoses Diagnosis Right foot pain- Primary Pain in limb Right foot pain Pain in limb documented in this encounter
--- OUTSIDE RECORDS SUMMARY | 2024-07-26 08:45 | XMS_ITS | Encounter Summary ---
Author Organization [facility] Health Address [address] [facility] [place] [address] Care Team Providers Care Laminator Printed Circuit Boards Name Role Phone Unavailable Primary Care Provider Unavailabl e Encounter Details Date Type Department Care Team (Late st Contact Info) Description 04/02/2020 12:38 PM CDT - 04/02/2020 11:59 PM CDT Hospital Encounter [facility] DIAGNOSTIC RAD [facility] [address]L [address] [facility]. [facility] [place] [address] Marylu Bajwa, FLOOR SWEEPER-AUTOMATIC THREAD WINDER 1225 [facility] [place] [address] Discharge Disposition: Home or Self Care Social [...] fluticasone propionate (FLONASE) 50 MCG/ACT nasal spray [place] 2 sprays into each nostril 16 g [...] of Function 60 tablet 2 02/27/2020 07/16/2020 [place]-3 Fatty Acids (FISH OIL) 1000 MG [...] st Contact Info) Description 08/02/2024 2:20 PM GATE AGENT Appointment [facility] [address] [place] [address] 08/02/2024 3:00 PM GATE AGENT Office Visit [facility] - Hematology/Oncology [address] [place] [phone] [place] [address] [place] [phone] 08/18/2024 1:45 PM GATE AGENT Office Visit [facility] - ENT [address] [place] [phone] Neri Delgado MD [address] [place] [address] 08/30/2024 2:20 PM GATE AGENT Appointment [facility] [address] [place] [address] documented as of this encounter Procedures Procedure [...] MD on04/02/2020 1:12 PM . Marylu Bajwa APRN-AUTOMATIC THREAD WINDER DIAGNOSTIC IMAG ING ORDERABLES documented in this encounter Visit Diagnoses Diagnosis Right foot pain Pain in limb documented in this encounter
--- OUTSIDE RECORDS SUMMARY | 2024-07-26 08:46 | XMS_ITS | Encounter Summary ---
Author Organization [facility] Health Address [address] [place] [address] Care Team Providers Care Oncology Technician Name Role Phone Unavailable Primary Care Provider Unavailabl e Reason for Visit * Reason Onset Date Comments Medication Issue 09/26/2019 Encounter Details Date Type Department Care Team (Late st Contact Info) Description 09/26/2019 Telephone [facility] [address] [address] Marylu Marie DO [address] OF [facility] [place] [address] Medication Issue Social History Tobacco Use Types [...] 4:04 PM * Telephone Encounter - Tiffanie Crump RN - 09/26/2019 9:48 AM CDT Patient has doubled pepcid to 40mg 2 times a day. Advised that she may be taking too much of this medication Please advise May need a med change [phone] documented in this encounter Plan of Treatment Upcoming Encounters Date Type Department Care Team (Late st Contact Info) Description 08/02/2024 2:20 PM ADVERTISING REPRESENTATIVE Appointment [facility] [address] [place] [phone] 08/02/2024 3:00 PM ADVERTISING REPRESENTATIVE Office Visit [facility] - Hematology/Oncology [address] [place] [phone] Remi Beckett MD [address] [place] [phone] 08/18/2024 1:45 PM ADVERTISING REPRESENTATIVE Office Visit [facility] - ENT [address] [place] [phone] Neri Delgado MD [address] [place] [address] 08/30/2024 2:20 PM ADVERTISING REPRESENTATIVE Appointment [facility] [address] [place] [phone] documented as of this encounter Visit Diagnoses Diagnosis Gastroesophageal reflux disease with esophagitis- Primary documented in this encounter
--- OUTSIDE RECORDS SUMMARY | 2024-07-26 08:46 | XMS_ITS | Encounter Summary ---
Author Organization [facility] Address [address] [facility] [place] [address] Care Team Providers Care Candy Vendor Name Role Phone Marylu Marie DO Unavailable [phone] Taniya Grimes MD Primary Care Provider [phone] Rocio Barcenas MD Unavailable Adriana Adams DO Unavailable Eliane Tillman MD Primary Care Provider [phone] Joseph Manzanares MD Primary Care Provider Taniya Grimes MD Primary Care Provider Joseph Manzanares MD Primary Care Provider [phone] Tiana Naylor DO Unavailable Tiana Naylor DO Primary Care Provider [phone] Joseph Manzanares MD Unavailable Yaya Villatoro MD Primary Care Provider [phone] Reason for Visit * Reason Onset Date Comments MEDICATION REFILL 09/14/2019 Encounter Details Date Type Department Care Team (Late st Contact Info) Description 09/14/2019 Refill [facility] [address] [place] [address] Marylu Marie DO [address] [facility] OF GEN INTERNAL MEDICINE [place], [place] [phone] MEDICATION REFILL Social History Tobacco Use Types [...] st Contact Info) Description 08/02/2024 2:20 PM JAIL MANAGER Appointment [facility] [address] [place] [address] 08/02/2024 3:00 PM JAIL MANAGER Office Visit [facility] - Hematology/Oncology [address] [place] [phone] [place] [address] [place] [phone] 08/18/2024 1:45 PM JAIL MANAGER Office Visit [facility] - ENT [address] [place] [phone] Neri Delgado MD [address] [place] [address] 08/30/2024 2:20 PM JAIL MANAGER Appointment [facility] [address] [place] [address] documented as of this encounter Visit Diagnoses Diagnosis Allergic rhinitis, unspecified seasonality, unspecified trigger- Primary documented in this encounter Care Teams Candy Vendor Relationship Specialty Start Date End Date Taniya Grimes MD [address] [facility] 2L DIV OF [facility] [place] [address] PCP - General 07/01/20 05/10/22 Eliane Tillman MD [facility]8 [place] [phone] PCP - General 05/11/22 06/09/22 Joseph Manzanares MD [address] [place] [phone] PCP - General Internal Medicine 06/10/22 07/14/22 Taniya Grimes MD [address] [place] [address] [address] [place] [address] PCP - General 07/15/22 10/06/22 Joseph Manzanares MD [facility]5 [place] [phone] PCP - General Internal Medicine 10/07/22 04/20/23 Tiana Naylor DO [address] [facility] [place] [address] PCP - General Internal Medicine 04/21/23 05/03/23 Yaya Villatoro MD [address] [place] [phone] PCP - General Internal Medicine 05/04/23 Marylu Marie DO [address] DIV OF [facility] [place] [address] Resident - PCP Student Resident 06/26/20 01/11/22 Rocio Barcenas MD [address] [facility] [place] [phone] Resident - PCP Internal Medicine 01/12/22 04/05/22 Adriana Adams DO [address] [place] [phone] Resident - PCP Internal Medicine 04/06/22 01/12/23 Tiana Naylor DO [address] [place] [address] Resident - PCP Internal Medicine 01/13/23 04/20/23 Joseph Manzanares MD [address] [place] [phone] Internal Medicine 04/21/23 documented as of this encounter
--- OUTSIDE RECORDS SUMMARY | 2024-07-26 08:46 | XMS_ITS | Encounter Summary ---
Author Organization [facility] Health Address [address] [place] [address] Care Team Providers Care Programmer Numerical Control Name Role Phone Unavailable Primary Care Provider Unavailabl e Reason for Visit * Reason Comments Refill Request Encounter Details Date Type Department Care Team (Late st Contact Info) Description 11/17/2019 Refill [facility] [address] [facility] 206 [place] [address] Marylu Marie DO [address] DIV OF [facility] [place] [address] Refill Request Social History Tobacco Use Types [...] st Contact Info) Description 08/02/2024 2:20 PM OPTICAL ENGINEERING MANAGER Appointment [facility] [address] [place] [phone] 08/02/2024 3:00 PM OPTICAL ENGINEERING MANAGER Office Visit [facility] - Hematology/Oncology [address] [place] [phone] Remi Beckett MD [address] [place] [phone] 08/18/2024 1:45 PM OPTICAL ENGINEERING MANAGER Office Visit [facility] - ENT [address] [place] [phone] Neri Delgado MD [address] [place] [address] 08/30/2024 2:20 PM OPTICAL ENGINEERING MANAGER Appointment [facility] [address] [place] [address] documented as of this encounter Visit Diagnoses Diagnosis Gastroesophageal reflux disease with esophagitis documented in this encounter
--- OUTSIDE RECORDS SUMMARY | 2024-07-26 08:46 | XMS_ITS | Encounter Summary ---
Author Organization [facility] Health Address [address] [facility] [place] [address] Care Team Providers Care Riding Teacher Name Role Phone Unavailable Primary Care Provider Unavailabl e Reason for Visit * Reason Onset Date Comments General 09/22/2019 Encounter Details Date Type Department Care Team (Late st Contact Info) Description 09/22/2019 Telephone [facility] [address] [facility] 206 [place] [address] Marylu Marie DO [address] OF [facility] [place] [address] General Social History Tobacco Use Types Packs/Day [...] Contact Info) Description 08/02/2024 2:20 PM AGENCY SERVICE COORDINATOR Appointment [facility] [address] [place] [address] 08/02/2024 3:00 PM AGENCY SERVICE COORDINATOR Office Visit [facility] - Hematology/Oncology [address] [place] [phone] Remi Beckett MD [address] [place] [phone] 08/18/2024 1:45 PM AGENCY SERVICE COORDINATOR Office Visit [facility] - ENT [address] [place] [phone] Neri Delgado MD [address] [place] [address] 08/30/2024 2:20 PM AGENCY SERVICE COORDINATOR Appointment [facility] [address] [place] [address] documented as of this encounter Visit Diagnoses Not on filedocumented in this encounter
--- OUTSIDE RECORDS SUMMARY | 2024-07-26 08:46 | XMS_ITS | Encounter Summary ---
Author Organization [facility] Health Address [address] [facility] [place] [address] Care Team Providers Care Finance Director Name Role Phone Unavailable Primary Care Provider Unavailabl e Encounter Details Date Type Department Care Team (Late st Contact Info) Description 01/12/2020 Orders Only [facility] [address] [place] [address] Marylu Marie DO [address] [facility] 2L [place] [address] Screening mammogram, encounter for Social History Tobacco [...] PM CDT Order faxed and confirmed to [facility] as requested. * Marylu Marie DO - 01/12/2020 3:43 PM CDT Mammogram order placed to [facility]. documented in this encounter Plan of Treatment Upcoming Encounters Date Type Department Care Team (Late st Contact Info) Description 08/02/2024 2:20 PM WELLNESS DIRECTOR Appointment [address] [address] 08/02/2024 3:00 PM WELLNESS DIRECTOR Office Visit [facility] - Hematology/Oncology [address] [place] [phone] Remi Beckett MD [address] [place] [phone] 08/18/2024 1:45 PM WELLNESS DIRECTOR Office Visit [facility] - ENT [address] [place] [phone] Neri Delgado MD [address] [place] [address] 08/30/2024 2:20 PM WELLNESS DIRECTOR Appointment [address] [address] documented as of this encounter Visit Diagnoses Diagnosis Screening mammogram, encounter for- Primary documented in this encounter
--- OUTSIDE RECORDS SUMMARY | 2024-07-26 08:46 | XMS_ITS | Encounter Summary ---
Author Organization [facility] Health Address [address] [facility] [place] [address] Care Team Providers Care Radiology Technologist Name Role Phone Unavailable Primary Care Provider Unavailabl e Reason for Visit * Reason Onset Date Comments MEDICATION REFILL 12/18/2019 Encounter Details Date Type Department Care Team (Late st Contact Info) Description 12/18/2019 Refill [facility] [address] [facility] 206 [place] [address] Marylu Marie DO [address] OF [facility] [place] [address] MEDICATION REFILL Social History Tobacco Use Types [...] st Contact Info) Description 08/02/2024 2:20 PM BURN NURSE Appointment [facility] [address] [place] [address] 08/02/2024 3:00 PM BURN NURSE Office [facility] - Hematology/Oncology [address] [place] [phone] Remi Beckett MD [address] [place] [phone] 08/18/2024 1:45 PM BURN NURSE Office [facility] - ENT [address] [place] [phone] Neri Delgado MD [address] [place] [address] 08/30/2024 2:20 PM BURN NURSE Appointment [facility] [address] [place] [phone] documented as of this encounter Visit Diagnoses Not on filedocumented in this encounter
--- OUTSIDE RECORDS SUMMARY | 2024-07-26 08:46 | XMS_ITS | Encounter Summary ---
Author Organization [facility] Health Address [address] [facility] [place] [address] Care Team Providers Care Airconditioning Plant Operator Name Role Phone Unavailable Primary Care Provider Unavailabl e Reason for Visit * Reason Onset Date Comments Referral 01/11/2020 Encounter Details Date Type Department Care Team (Late st Contact Info) Description 01/11/2020 Telephone [facility] [address] [address] Marylu Marie DO [address] OF [facility] [place] [address] Referral Social History Tobacco Use Types Packs/Day [...] and is asking for a Referral to: [facility] [address] [place], [place] [address] documented in this encounter Plan of Treatment Upcoming Encounters Date Type Department Care Team (Late st Contact Info) Description 08/02/2024 2:20 PM GRANITE COUNTERTOP INSTALLER Appointment [facility] [address] [place] [phone] 08/02/2024 3:00 PM GRANITE COUNTERTOP INSTALLER Office Visit [facility] - Hematology/Oncology [address] [place] [phone] Remi Beckett MD [address] [place] [phone] 08/18/2024 1:45 PM GRANITE COUNTERTOP INSTALLER [facility] [address] [place] [phone] Neri Delgado MD [address] [place] [phone] 08/30/2024 2:20 PM GRANITE COUNTERTOP INSTALLER Appointment [facility] [address] [place] [phone] documented as of this encounter Visit Diagnoses Not on filedocumented in this encounter
--- OUTSIDE RECORDS SUMMARY | 2024-07-26 08:46 | XMS_ITS | Encounter Summary ---
Author Organization [facility] Health Address [address] [facility] [place] [address] Care Team Providers Care Tie Maker Name Role Phone Unavailable Primary Care [...] st Contact Info) Description 08/02/2024 2:20 PM INTERACTIVE MEDIA SPECIALIST Appointment [facility] [address] [place] [address] 08/02/2024 3:00 PM INTERACTIVE MEDIA SPECIALIST Office Visit [facility] - Hematology/Oncology [facility]5 [place] [phone] [place] [address] [place] [phone] 08/18/2024 1:45 PM INTERACTIVE MEDIA SPECIALIST [facility] [address] [place] [phone] Neri Delgado MD [address] [place] [address] 08/30/2024 2:20 PM INTERACTIVE MEDIA SPECIALIST Appointment [facility] [address] [place] [address] documented as of this encounter Visit Diagnoses Not on filedocumented in this encounter
--- OUTSIDE RECORDS SUMMARY | 2024-07-26 08:46 | XMS_ITS | Encounter Summary ---
Author Organization [facility] Health Address [address] [facility] [place] [address] Care Team Providers Care Dry Boss Name Role Phone Unavailable Primary Care Provider Unavailabl e Reason for Visit * Reason Comments Well Women Exam Encounter Details Date Type Department Care Team (Latest Contact Info) Description 11/23/2019 10:00 AM CDT Office Visit [facility] Ob[facility]etrics Gynecology and Women's Health [address] [place], [place] [phone] Tati pino, Lexii Ortiz MD [address] [place] [phone] Well woman exam with routine [...] MD - 11/23/2019 10:00 AM CDT General spring upholsterer Patient Progress Note: History of Present Illness: [...] file Gets together: Not on file Attends spiritism service: Not on file Active member of [...] fluticasone propionate (FLONASE) 50 MCG/ACT nasal spray, [place] 2 sprays into each nostril, Disp: 16g, [...] tablets by mouth DAILY., Disp: , Rfl: [place]-3 Fatty Acids (FISH OIL) 1000 MG capsule, [...] st Contact Info) Description 08/02/2024 2:20 PM QUARTER SECTION IRONER Appointment [facility] [address] [place] [address] 08/02/2024 3:00 PM QUARTER SECTION IRONER Office Visit [facility] - Hematology/Oncology [address] [place] [phone] Remi Beckett MD [address] [place] [phone] 08/18/2024 1:45 PM QUARTER SECTION IRONER Office Visit [facility] - ENT [address] [place] [phone] Neri Delgado MD [address] [place] [address] 08/30/2024 2:20 PM QUARTER SECTION IRONER Appointment [facility] [address] [place] [address] documented as of this encounter Procedures Procedure [...] Detected Not Detected 11/28/2019 3:43 PM CDT [facility] High Risk Human Papilloma Interp 11/28/2019 3:43 PM CDT [facility] Comment:High Risk Human Taurus lloma Virus was Not Detected. Pathology/Cytolo gy MISCELLANEOUS SAMPLES / Unknown 11/23/2019 10:00 AM CDT 11/24/2019 11:39 AM CDT Narrative [facility] - 11/28/2019 3:43 PM [...] Dillard MD LAB - MICROB IOLOGY ORDERABLES [facility] [address] [facility] [place] [address], [facility] [phone] * PAP IMAGE-GUIDED W HPV (11/23/2019 10:00 AM CDT) Case Report Gynecologic Cytology Report ? Case: [id number] ? Authorizing Provider: ??Tati pino, Lexii Ortiz, [...] 10:17 AM CDT [facility] Interpretation FARMWORKER GRAIN Negative for intraepithelial lesion or malignancy. 11/29/2019 10:17 AM CDT [facility] Other Atrophic changes. 020 10:17 AM CDT [facility] Pap Footnote This specimen was evaluated by the ThinPrep Imaging System along with the an additional manual rescreening by a dulite machine bluer and/or pathologist. 11/29/2019 10:17 AM CDT [facility] Embedded Images 0 10:17 AM CDT [facility] Pathology/Cytolo gy MISCELLANEOUS SAMPLES / Unknown 11/23/2019 10:00 AM CDT 11/24/2019 11:39 AM CDT Lexii Dillard MD LAB - PATHOL OGY/CYTOLOGY ORDERABLES [facility] [address] [place] [address], [facility] [phone] documented in this encounter Visit Diagnoses Diagnosis Well woman exam with routine gynecological exam- Primary Routine gynecological examination documented in this encounter
--- OUTSIDE RECORDS SUMMARY | 2024-07-26 08:47 | XMS_ITS | Encounter Summary ---
Author Organization [facility] Health Address [address] [place] [address] Care Team Providers Care Crop Consultant Name Role Phone Unavailable Primary Care Provider Unavailabl e Reason for Visit * Reason Comments Establish Care Encounter Details Date Type Department Care Team (Late st Contact Info) Description 09/06/2019 3:00 PM HULL BUILDER Office Visit [facility] General Internal Medicine [address] [address] Marylu Marie DO [address] [facility] [place] [address] Encounter to establish care (Primary Dx); Well [...] Comments Blood Pressure 122/64 09/06/2019 3:20 PM HULL BUILDER Pulse 88 09/06/2019 3:20 PM HULL BUILDER Temperature 36.2 ??C (97.1 ??F) 09/06/2019 3:20 PM CS T Respiratory Rate - - Oxygen Saturation - - Inhaled Oxygen Concentration - - Weight 65.8 kg (145 lb) 09/06/2019 3:20 PM HULL BUILDER Height 152.4 cm (5') 09/06/2019 3:20 PM HULL BUILDER Body Mass Index 28.32 09/06/2019 3:20 PM HULL BUILDER documented in this encounter Patient Instructions * Patient Instructions* Charo German - 09/06/2019 3:22 PM HULL BUILDER How to Contact Us Between Office Visits [...] to be seen. Please call us at [phone], option 1 thenoption 1 in the morning you would like to be seen. For scheduling routine appointments, requesting refills or leaving a message for your doctor, the office phone is [phone]. You will be given options to get to the assistance you need. Phone lines are open from 8:00 am to4:30 pm Wednesday through Wednesday. All prescription refills must be requested during regular office phone hours. Our fax number is [phone]. After hours urgent calls that cannot wait untill phone lines are open on the next business day are given to the General Internal Medicine physician construction operations manager. Please call [phone]. Identify yourself as a patient in our practice and give the pneumatic systems operator your doctor's name. The pneumatic systems operator will contact the physician construction operations manager. You can generally expect a return call within 30 minutes. On weekends, physicians are seeing hospitalized patients and there maybe a longer wait. Visit our website at [email or web address] for information about our practice and an interactive health encyclopedia. Our clinic's missed appointment policy is: - Patients with 3 consecutively missed appointments OR 3 missed appointments in a 12 month period will no longer be seen by General Internal Medicine. They will be asked to seek Primary Care outside of [facility]. - A missed appointment is defined as: * An appointment cancelled less than 24 hours in advance *Arriving to a scheduled appointment too late to be seen (Patients who arrive to clinic later than their scheduled appointment time may not be seen) * Not showing up for an appointment BUILDER documented in this encounter Progress Notes * Marylu Marie, - 09/06/2019 3:00 PM CST [facility] General Internal Medicine New Patient Note CC: Chief Complaint Patient presents with ??? Establish Care History of Present Illness: Brisa Hogan is a 59 year old female presenting to [facility] to establish care. Previously followed with Dr. Viridiana Hopper at [facility]. ELE in early 2019. Has history of [...] Takes atorvastatin for HLD. Denies history of AK, CAD, or CVA. Has seasonal allergies for [...] next appointment. These tests were performed at [facility]. 2. Well adult exam - CBC [...] cancer screening: recent low dose CT at [facility], patient will try to obtain records Lipid screening: ordered; on statin DM screening: ordered Depression screening: PHQ-9 score of 4 Female specific HCM Cervical cancer screenin, referral to ob/gyn Preconception counseling: Menopause at age 57 Breast ca screenin Patient discussed with attending physician, Dr. Tillman, who agrees with my assessment and plan. Return to clinic in 3 months. Marylu Marie DO 09/06/2019 3:48 PM BUILDER Associated attestation - Eliane Tillman MD - 09/08/2019 10:38 AM HULL BUILDER IM Attending-Outpatient Clinic note New visit Patient [...] measures are with the previous provider at [facility], patient already has records, she will bring records next time. A/P, Medications, follow up and plan of care as detailed in Dr. Marie's note and discussed with patient and with resident. Eliane Tillman MD, FACP documented in this encounter Plan of Treatment Upcoming Encounters Date Type Department Care Team (Late st Contact Info) Description 08/02/2024 2:20 PM HULL BUILDER Appointment [facility] [address] [place] [id number] 08/02/2024 3:00 PM HULL BUILDER Office Visit [facility] - Hematology/Oncology [address] [place] [address] [phone] Remi Beckett MD [address] [place] [address] [phone] 08/18/2024 1:45 PM HULL BUILDER Office Visit [facility] - ENT [address] [place] [address] [phone] Neri Delgado MD [address] [place] [phone] 08/30/2024 2:20 PM HULL BUILDER Appointment [facility] [address] [place] [phone] documented as of this encounter Results * CBC W/O DIFFERENTIAL (03/07/2020 3:19 PM CDT) WBC 7.9 3.5 - 10.5 10? 3 /uL 03/07/2020 4:02 PM [facility] RBC 4.54 3.90 - 5.00 10? 6 /uL 03/07/2020 4:02 PM [facility] Hemoglobin 13.3 12.0 - 15.5 g/dL 03/07/2020 4:02 PM [facility] Hematocrit 40.5 35.0 - 45.0 % 03/07/2020 4:02 PM [facility] MCV 89.2 81.0 - 97.0 fL 03/07/2020 4:02 PM [facility] MCH 29.3 28.0 - 34.0 pg 03/07/2020 4:02 PM [facility] MCHC 32.8 32.0 - 36.0 g/dL 03/07/2020 4:02 PM [facility] Platelet Count 266 150 - 400 10? 3 /uL 03/07/2020 4:[address] [facility] RDW-SD 41.3 36.0 - 50.0 fL 03/07/2020 4:[address] [facility] RDW-CV 12.5 11.2 - 14.8 % 03/07/2020 4:[address] [facility] MPV 9.8 9.3 - 12.8 fL 03/07/2020 4:[address] [facility] nRBC Absolute 0.00 0 10? 3 /uL 03/07/2020 4:[address] [facility] nRBC Auto 0.0 0 /100 WBC 03/07/2020 4:[address] [facility] Blood BLOOD SPECIMEN / Unknown Lab Venipuncture / Unknown 03/07/2020 3:19 PM CDT 03/07/2020 3:43 PM CDT Marylu Marie DO LAB - HEMATOLOGY ORD ERABLES Performing Organization Address City/State/[facility] Co de Phone Number [address] [address], [facility] [phone] documented in this encounter Visit Diagnoses Diagnosis [...]
--- OUTSIDE RECORDS SUMMARY | 2024-07-26 08:51 | XMS_ITS | Clinical Summary ---
Author Organization [facility] Address [address] [place] [address]. [place] [address] [place] [address] Care Team Providers Care Pan Washer Name Role Phone Brenda Hopper MD Primary Care Provider [phone] Allergies No known active allergies Medications ondansetron [...] T Respiratory Rate 18 08/10/2018 3:22 PM AIR SURVEILLANCE OPERATOR Oxygen Saturation 95% 08/10/2018 3:22 PM AIR SURVEILLANCE OPERATOR Inhaled Oxygen Concentration - - Weight [...] to complete this topic Insurance [employer] [address] Care Teams Pan Washer Relationship Specialty Start Date End Date Brenda Hopper MD [address] [address] PCP - General FAMILY PRACTICE 10/07/18
--- OUTSIDE RECORDS SUMMARY | 2024-07-26 08:51 | XMS_ITS ---
Author Organization [facility] [employer] Address [address] [place] [address] Care Team Providers Care Contract Officer Name Role Phone Yaya Villatoro MD Primary Care Provider Selvin Davis Unavailable [phone] Allergies No Known Allergies REASON FOR VISIT follow up visit, medication evaluation Medications Medication SIG (Take, Route, Frequency, Duration) Notes Start Date End Date Status hydrOXYzine HCl 25 MG 1 tablet Oral Once a day for 90 days 11/08/2023 Active traZODone HCl 50 MG 1 tablet at bedtime Oral Once a day for 90 days Active buPROPion HCl ER (SR) 100 MG 1 tablet Or al twice a day for 90 days Active Famotidine 20 MG Oral 11/08/2023 Ac tive Calcitriol 0.5 MCG Oral 11/08/2023 Active Atorvastatin Calcium 40 MG TAKE 1 TABLET BY MOUTH EVERYDAY AT BEDTIME Oral for 90 Days Active Gabapentin 300 MG Oral 11/08/2023 A ctive Prochlorperazine Maleate 10 MG TAKE 1 TABLET BY MOUTH EVERY 6 HOURS NEEDED FOR NAUSEA AND VOMITING Oral for 7 Days Active Clobetasol Propionate 0.05 % APPLY TO AF FECTED AREA TWICE A DAY NEEDED External for 15 Days Active oxyBUTYnin Chloride ER 5 MG TAKE 1 TABLE T BY MOUTH EVERY DAY Oral for 90 Days Active Pantoprazole Sodium 40 MG TAKE 1 TABLET BY MOUTH EVERY DAY Oral for 90 Days Active Levothyroxine Sodium 112 MCG TAKE 1 TAB BY MOUTH DAILY BEFORE BREAKFAST EXCEPT WEDNESDAY. ON WEDNESDAY, TAKE 1 & 1/2 TABS Oral for 90 Days Active Acetaminophen Extra Strength 500 MG TAKE 2 (TWO) TABLETS BY MOUTH EVERY 8 HOURS NEEDED FOR FEVER OR PAIN Oral for 5 Days Active Cyclobenzaprine HCl 5 MG TAKE 1 TABLET B Y MOUTH THREE TIMES A DAY NEEDED Oral for 30 Days Active Social History Sex Assigned At : Social History Observation Description Sex Assigned At Female Problems Problem Type SNOMED Code ICD Code Onset Dates Problem Status W/U Status Risk Notes Problem Severe recurrent major depression without psychotic features (79451741) Major depressive disorder, recurrent severe without psychotic features (F33.2) 4 Active confirmed Problem Primary insomnia (8424988) Primary insomnia (F51.01) 4 Active confirmed Problem Generalized anxiety disorder (28928109) Generalized anxiety disorder (F41.1) 4 Active confirmed Problem History of malignant neoplasm of thyroid (553338332) Personal history of malignant neoplasm of thyroid (Z85.850) 4 Active confirmed Problem [id number] Oral phase dysphagia (R13.11) Active confirmed Vital Signs Blood pressure systolic 117 mm Hg 02/07/20 24 Blood pressure diastolic 95 mm Hg 024 Heart Rate 94 /min 02/07/2024 Height 62.00 in 02/07/2024 Weight 127.2 lbs 02/07/2024 BMI 23.26 kg/m2 02/07/2024 Height-cm 157.48 cm 02/07/2024 Weight-kg 57.7 kg 02/07/2024 Encounters Encounter Location Date Provider Diagnosis [facility] [address] [facility] [address] [place] [address] 02/07/2024 Selvin Sowmya Major depressive disorder, recurrent severe without psychotic features F33.2 ; Primary insomnia F51.01 ; Generalized anxiety disorder F41.1 ; Personal history of malignant neoplasm of thyroid Z85.850 and Oral phase dysphagia R13.11 Assessments Encounter Date Diagnosis (ICD Code) Assessment Notes Treatment Notes Treatment Clinical Notes Section Notes 02/07/2024 Major depressive disorder, recurrent severe without psychotic features (ICD-10 - F33.2) Depression and Anxiety - Assessment: Patient reports improvement in anxiety but continues to experience intermittent depressive episodes. Currently on bupropion SR 100 mg twice a day, trazodone 50 mg at night, and hydroxyzine as needed. No changes to the medication regimen at this time. Patient reports being more emotional during the first week of every month, possibly related to hormonal changes or grief from recent loss of mother. - Plan: Continue current medications and monitor progress. Suggest patient keep a journal to track mood patterns. Follow up in three months. Cancer and Radiation Therapy Side Effects - Assessment: Patient is dealing with cancer and has experienced dysphagia, hoarse throat, severe sore throat, and muscle cramps after starting a new prescription pill. Patient has stopped the medication and is seeing Dr. Beckett for further evaluation. Patient reports difficulty swallowing and is scheduled to see an ENT specialist. - Plan: Encourage patient to follow up with oncologist and ENT specialist for evaluation and management of side effects. Monitor progress in future visits. Paroxetine - Assessment: Patient reports taking paroxetine, but it is not listed in the medication records. Patient will provide a picture of the medication bottle for confirmation. Patient states they have been on paroxetine for years and currently have two extra bottles. - Plan: Once confirmed, add paroxetine to the patient's medication list. No changes to the medication regimen at this time. High Blood Pressure - Assessment: Patient has high blood pressure during the visit. - Plan: Advise patient to see their primary care physician for evaluation and management of high blood pressure. Medication Refills - Assessment: Patient has sufficient supply of bupropion, trazodone, hydroxyzine, paroxetine, and famotidine. Refills needed for Gabapentin and Celebrex. Patient reports having extra supplies of some medications due to automatic refills. - Plan: Refill Gabapentin and Celebrex as needed. Monitor medication adherence and effectiveness during follow-up visits. Follow-up - Plan: Schedule a three-month follow-up appointment to assess the patient's progress and medication regimen. 02/07/2024 Primary insomnia (ICD-10 - F51.01) Depression and Anxiety - Assessment: Patient reports improvement in anxiety but continues to experience intermittent depressive episodes. Currently on bupropion SR 100 mg twice a day, trazodone 50 mg at night, and hydroxyzine as needed. No changes to the medication regimen at this time. Patient reports being more emotional during the first week of every month, possibly related to hormonal changes or grief from recent loss of mother. - Plan: Continue current medications and monitor progress. Suggest patient keep a journal to track mood patterns. Follow up in three months. Cancer and Radiation Therapy Side Effects - Assessment: Patient is dealing with cancer and has experienced dysphagia, hoarse throat, severe sore throat, and muscle cramps after starting a new prescription pill. Patient has stopped the medication and is seeing Dr. Beckett for further evaluation. Patient reports difficulty swallowing and is scheduled to see an ENT specialist. - Plan: Encourage patient to follow up with oncologist and ENT specialist for evaluation and management of side effects. Monitor progress in future visits. Paroxetine - Assessment: Patient reports taking paroxetine, but it is not listed in the medication records. Patient will provide a picture of the medication bottle for confirmation. Patient states they have been on paroxetine for years and currently have two extra bottles. - Plan: Once confirmed, add paroxetine to the patient's medication list. No changes to the medication regimen at this time. High Blood Pressure - Assessment: Patient has high blood pressure during the visit. - Plan: Advise patient to see their primary care physician for evaluation and management of high blood pressure. Medication Refills - Assessment: Patient has sufficient supply of bupropion, trazodone, hydroxyzine, paroxetine, and famotidine. Refills needed for Gabapentin and Celebrex. Patient reports having extra supplies of some medications due to automatic refills. - Plan: Refill Gabapentin and Celebrex as needed. Monitor medication adherence and effectiveness during follow-up visits. Follow-up - Plan: Schedule a three-month follow-up appointment to assess the patient's progress and medication regimen. 02/07/2024 Generalized anxiety disorder (ICD-10 - F41.1) Depression and Anxiety - Assessment: Patient reports improvement in anxiety but continues to experience intermittent depressive episodes. Currently on bupropion SR 100 mg twice a day, trazodone 50 mg at night, and hydroxyzine as needed. No changes to the medication regimen at this time. Patient reports being more emotional during the first week of every month, possibly related to hormonal changes or grief from recent loss of mother. - Plan: Continue current medications and monitor progress. Suggest patient keep a journal to track mood patterns. Follow up in three months. Cancer and Radiation Therapy Side Effects - Assessment: Patient is dealing with cancer and has experienced dysphagia, hoarse throat, severe sore throat, and muscle cramps after starting a new prescription pill. Patient has stopped the medication and is seeing Dr. Beckett for further evaluation. Patient reports difficulty swallowing and is scheduled to see an ENT specialist. - Plan: Encourage patient to follow up with oncologist and ENT specialist for evaluation and management of side effects. Monitor progress in future visits. Paroxetine - Assessment: Patient reports taking paroxetine, but it is not listed in the medication records. Patient will provide a picture of the medication bottle for confirmation. Patient states they have been on paroxetine for years and currently have two extra bottles. - Plan: Once confirmed, add paroxetine to the patient's medication list. No changes to the medication regimen at this time. High Blood Pressure - Assessment: Patient has high blood pressure during the visit. - Plan: Advise patient to see their primary care physician for evaluation and management of high blood pressure. Medication Refills - Assessment: Patient has sufficient supply of bupropion, trazodone, hydroxyzine, paroxetine, and famotidine. Refills needed for Gabapentin and Celebrex. Patient reports having extra supplies of some medications due to automatic refills. - Plan: Refill Gabapentin and Celebrex as needed. Monitor medication adherence and effectiveness during follow-up visits. Follow-up - Plan: Schedule a three-month follow-up appointment to assess the patient's progress and medication regimen. 02/07/2024 Personal history of malignant neoplasm of thyroid (ICD-10 - Z85.850) Depression and Anxiety - Assessment: Patient reports improvement in anxiety but continues to experience intermittent depressive episodes. Currently on bupropion SR 100 mg twice a day, trazodone 50 mg at night, and hydroxyzine as needed. No changes to the medication regimen at this time. Patient reports being more emotional during the first week of every month, possibly related to hormonal changes or grief from recent loss of mother. - Plan: Continue current medications and monitor progress. Suggest patient keep a journal to track mood patterns. Follow up in three months. Cancer and Radiation Therapy Side Effects - Assessment: Patient is dealing with cancer and has experienced dysphagia, hoarse throat, severe sore throat, and muscle cramps after starting a new prescription pill. Patient has stopped the medication and is seeing Dr. Beckett for further evaluation. Patient reports difficulty swallowing and is scheduled to see an ENT specialist. - Plan: Encourage patient to follow up with oncologist and ENT specialist for evaluation and management of side effects. Monitor progress in future visits. Paroxetine - Assessment: Patient reports taking paroxetine, but it is not listed in the medication records. Patient will provide a picture of the medication bottle for confirmation. Patient states they have been on paroxetine for years and currently have two extra bottles. - Plan: Once confirmed, add paroxetine to the patient's medication list. No changes to the medication regimen at this time. High Blood Pressure - Assessment: Patient has high blood pressure during the visit. - Plan: Advise patient to see their primary care physician for evaluation and management of high blood pressure. Medication Refills - Assessment: Patient has sufficient supply of bupropion, trazodone, hydroxyzine, paroxetine, and famotidine. Refills needed for Gabapentin and Celebrex. Patient reports having extra supplies of some medications due to automatic refills. - Plan: Refill Gabapentin and Celebrex as needed. Monitor medication adherence and effectiveness during follow-up visits. Follow-up - Plan: Schedule a three-month follow-up appointment to assess the patient's progress and medication regimen. 02/07/2024 Oral phase dysphagia (ICD-10 - R13.11) Depression and Anxiety - Assessment: Patient reports improvement in anxiety but continues to experience intermittent depressive episodes. Currently on bupropion SR 100 mg twice a day, trazodone 50 mg at night, and hydroxyzine as needed. No changes to the medication regimen at this time. Patient reports being more emotional during the first week of every month, possibly related to hormonal changes or grief from recent loss of mother. - Plan: Continue current medications and monitor progress. Suggest patient keep a journal to track mood patterns. Follow up in three months. Cancer and Radiation Therapy Side Effects - Assessment: Patient is dealing with cancer and has experienced dysphagia, hoarse throat, severe sore throat, and muscle cramps after starting a new prescription pill. Patient has stopped the medication and is seeing Dr. Beckett for further evaluation. Patient reports difficulty swallowing and is scheduled to see an ENT specialist. - Plan: Encourage patient to follow up with oncologist and ENT specialist for evaluation and management of side effects. Monitor progress in future visits. Paroxetine - Assessment: Patient reports taking paroxetine, but it is not listed in the medication records. Patient will provide a picture of the medication bottle for confirmation. Patient states they have been on paroxetine for years and currently have two extra bottles. - Plan: Once confirmed, add paroxetine to the patient's medication list. No changes to the medication regimen at this time. High Blood Pressure - Assessment: Patient has high blood pressure during the visit. - Plan: Advise patient to see their primary care physician for evaluation and management of high blood pressure. Medication Refills - Assessment: Patient has sufficient supply of bupropion, trazodone, hydroxyzine, paroxetine, and famotidine. Refills needed for Gabapentin and Celebrex. Patient reports having extra supplies of some medications due to automatic refills. - Plan: Refill Gabapentin and Celebrex as needed. Monitor medication adherence and effectiveness during follow-up visits. Follow-up - Plan: Schedule a three-month follow-up appointment to assess the patient's progress and medication regimen. Plan Of Treatment Medication Medication Name Sig Start Date Stop Date Notes hydrOXYzine HCl 25 MG 1 tablet Oral Once a day for 90 days 11/08/2023 traZODone HCl 50 MG 1 tablet at bedtime Oral Once a day for 90 days buPROPion HCl ER (SR) 100 MG 1 tablet Or al twice a day for 90 days Next Appt Details Follow Up: 3 Months, Reason: depression Progress Notes * LETA HARDYB:[birth year] (63 yo F)Acc No.[id number]:02/07/2024 Patient:?HARDYSCOTTELIZABETH Provider:?SELVIN CASTANEDA MD :[id number]???Age:63 Y???Sex:Female D ate:02/07/2024 Address:[address] [place], [place] [address] Subjective: * Chief Complaints: * ???Follow up visit, medicati on evaluation * HPI: ???Depression Screening:? The note is transcribed using speech recognition software. It is a reflection of a visit with the patient. It might have some inaccuracy, including medication names and transcribing errors, though efforts have been made to correct them. The note is transcribed using speech recognition software. It is a reflection of a visit with the patient. It might have some inaccuracy, including medication names and transcribing errors, though efforts have been made to correct them. Mood and Emotional State: The patient reports an improvement in their overall mood, with increased time spent outdoors and by the bingham. They still experience intermittent depression, which tends to worsen at the beginning of each month, particularly during the first week. The patient becomes more emotional during this time, often crying easily. They are unsure of the reason for this pattern but wonder if it could be related to hormonal changes or the recent loss of their mother. The patient's anxiety has been relatively stable. Ongoing Health Concerns: The patient is currently dealing with the recent loss of their mother, who on July 03, and ongoing cancer treatment. They mention having been prescribed a medication for cancer, which led to the development of a hoarse throat, severe sore throat, and muscle cramps. Consequently, the medication was discontinued. The patient is experiencing dysphagia, which may be a side effect of radiation therapy received in the past. Medical Care and Treatment: The patient is under the care of Dr. Beckett for their cancer treatment and undergoes regular blood work. They report that their blood work results are generally satisfactory, with some elevated levels that still need to be addressed. The patient had radiation therapy five days a week last year due to the growth of a tumor, which they found particularly tiring and potentially contributing to feelings of sadness. Medication Regimen: The patient is currently taking bupropion SR 100 mg twice a day, trazodone 50 mg at night, and hydroxyzine as needed. They also mention having extra paroxetine and famotidine at home, although paroxetine was not listed in their medication records from previous visits. The patient reports taking paroxetine daily but is unsure of the dosage. They are due for a refill of Gabapentin and Celebrex. They have been prescribed Prolia, which is awaiting shipment to Dr. Bustamante. The patient's blood pressure was noted to be high during the visit, and they were advised to consult their medical doctor for further evaluation. Coping Mechanism: The patient mentions using journaling in the past as a coping mechanism for difficult emotions and was encouraged to resume this practice, particularly during the challenging first week of each month. ?PHQ-2 (2015 Edition)?Little interest or pleasure in doing things??Not at all,?Feeling down, depressed, or hopeless??Several days,?Total Score?1.?Elderly Maltreatment:?Screening Questions?Physical Abuse - Infliction of physical injury by punching, beating, kicking, biting, burning, shaking, or other actions that result in harm.?No,?Emotional/Psychological Abuse - Willful infliction of mental or emotional anguish by threat, humiliation, isolation, or other verbal or nonverbal conduct.?No,?Neglect - Involves attitudes of others or actions caused by others - such as family members, friends, or institutional caregivers - that have an extremely detrimental effect upon well-being?No,?Sexual Abuse - Forcing of undesired sexual behavior by one person upon another against their will who are either competent or unable to fully comprehend and/or give consent. This may also be called molestation.?No,?Elder Abandonment - Desertion of an elderly person by an individual who has assumed responsibility for providing care for an elder, or by a person with physical custody of an elder No,?Financial or Material Exploitation - Taking advantage of a person for monetary gain or profit?No,?Unwarranted Control - Controlling a person's ability to make choices about living situations, household finances, and medical care.?No.?Screening Results?Results?Elder maltreatment screen documented as negative, follow-up is not required (G8734).?Depression screening:?Intervention?Depression Screening Findings?Negative,?Follow-Up for Depression?Mental health care management,?Suicide Risk Assessment Performed? ,?Additional Evaluation for Depression?Psychiatric interview and evaluation,?Name of the standardized tool used for adult depression screening:?Patient Health Questionnaire (PHQ-9).?General Follow Up:? The patient has been under the care of Dr. Yaya Villatoro and Dr. Remi Beckett at [facility], and Dr. 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 The patient has been diagnosed with hypocalcemia, other hypoparathyroidism, and postoperative hypothyroidism. The patient has had multiple hospital encounters and office visits from December to January 2024, with the most recent being on January 31, 2024. The patient has also been undergoing antineoplastic chemotherapy as part of their treatment plan. The patient's condition requires frequent monitoring and has necessitated several travels for treatment.View MoreExternal ResultsPatient Diagnostic Procedures, Testing and Results: Test:?CBC WITH DIFFERENTIAL Facility:?[facility] Date:?2023-12-10 10:54:47 Significant Findings:?RBC Count 5.36 (High) Test:?CBC WITH DIFFERENTIAL Facility:?[facility] Date:?2024-01-14 11:13:57 Significant Findings:?RBC Count 5.49 (High) Test:?COMPREHENSIVE METABOLIC PANEL Facility:?[facility] Date:?2023-12-10 10:54:47 Significant Findings:?Chloride 108 mmol/L (High), CO2 21 mmol/L (Low), BUN 30 mg/dL (High), BUN/Creatinine Ratio 39 (High), eGFR by CKD-EPI 86 (Low) Test:?COMPREHENSIVE METABOLIC PANEL Facility:?[facility] Date:?2024-01-14 11:13:57 Significant Findings:?Albumin/Globulin Ratio 0.9 (Low), CO2 21 mmol/L (Low), BUN 38 mg/dL (High), BUN/Creatinine Ratio 40 (High), eGFR by CKD-EPI 67 (Low) Test:?THYROGLOBULIN BY ANTONIETA RFLXED Facility:?[facility] Date:?2023-12-13 18:08:00 Significant Findings:?Thyroglobulin by ANTONIETA 352.5 ng/mL (High) Test:?TSH Facility:?[facility] Date:?2023-12-10 10:54:47 Significant Findings:?TSH (Low). * Medical History:? * Surgical History:? * Hospitalization/Major Diagno stic Procedure:? * Medications:?TakingAcetamino phen Extra Strength 500 MG Tablet TAKE 2 (TWO) TABLETS BY MOUTH EVERY 8 HOURS NEEDED FOR FEVER OR PAIN Oral Cyclobenzaprine HCl 5 MG Tablet TAKE 1 TABLET BY MOUTH THREE TIMES A DAY NEEDED Oral Levothyroxine Sodium 112 MCG Tablet TAKE 1 TAB BY MOUTH DAILY BEFORE BREAKFAST EXCEPT WEDNESDAY. ON WEDNESDAY, TAKE 1 & 1/2 TABS Oral Pantoprazole Sodium 40 MG Tablet Delayed Release TAKE 1 TABLET BY MOUTH EVERY DAY Oral oxyBUTYnin Chloride ER 5 MG Tablet Extended Release 24 Hour TAKE 1 TABLET BY MOUTH EVERY DAY Oral Prochlorperazine Maleate 10 MG Tablet TAKE 1 TABLET BY MOUTH EVERY 6 HOURS NEEDED FOR NAUSEA AND VOMITING Oral buPROPion HCl ER (SR) 100 MG Tablet Extended Release 12 Hour TAKE 1 TABLET BY MOUTH EVERY MORNING AND AT NOON Oral traZODone HCl 50 MG Tablet TAKE 1 TABLET BY MOUTH EVERY DAY AT BEDTIME FOR 30 DAYS Oral Clobetasol Propionate 0.05 % Ointment APPLY TO AFFECTED AREA TWICE A DAY NEEDED External Atorvastatin Calcium 40 MG Tablet TAKE 1 TABLET BY MOUTH EVERYDAY AT BEDTIME Oral Calcitriol 0.5 MCG Capsule Oral Famotidine 20 MG Tablet Oral Gabapentin 300 MG Capsule Oral hydrOXYzine HCl 25 MG Tablet Oral Taking Acetaminophen Extra Strength 500 MG Tablet TAKE 2 (TWO) TABLETS BY MOUTH EVERY 8 HOURS NEEDED FOR FEVER OR PAIN Oral Taking Cyclobenzaprine HCl 5 MG Tablet TAKE 1 TABLET BY MOUTH THREE TIMES A DAY NEEDED Oral Taking Levothyroxine Sodium 112 MCG Tablet TAKE 1 TAB BY MOUTH DAILY BEFORE BREAKFAST EXCEPT WEDNESDAY. ON WEDNESDAY, TAKE 1 & 1/2 TABS Oral Taking Pantoprazole Sodium 40 MG Tablet Delayed Release TAKE 1 TABLET BY MOUTH EVERY DAY Oral Taking oxyBUTYnin Chloride ER 5 MG Tablet Extended Release 24 Hour TAKE 1 TABLET BY MOUTH EVERY DAY Oral Taking Prochlorperazine Maleate 10 MG Tablet TAKE 1 TABLET BY MOUTH EVERY 6 HOURS NEEDED FOR NAUSEA AND VOMITING Oral Taking buPROPion HCl ER (SR) 100 MG Tablet Extended Release 12 Hour TAKE 1 TABLET BY MOUTH EVERY MORNING AND AT NOON Oral Taking traZODone HCl 50 MG Tablet TAKE 1 TABLET BY MOUTH EVERY DAY AT BEDTIME FOR 30 DAYS Oral Taking Clobetasol Propionate 0.05 % Ointment APPLY TO AFFECTED AREA TWICE A DAY NEEDED External Taking Atorvastatin Calcium 40 MG Tablet TAKE 1 TABLET BY MOUTH EVERYDAY AT BEDTIME Oral Taking Calcitriol 0.5 MCG Capsule Oral Taking Famotidine 20 MG Tablet Oral Taking Gabapentin 300 MG Capsule Oral Taking hydrOXYzine HCl 25 MG Tablet Oral DiscontinuedAlbuterol Sulfate HFA 108 (90 Base) MCG/ACT Aerosol Solution INHALE 2 PUFFS BY MOUTH EVERY 4 TO 6 HOURS NEEDED FOR WHEEZING Inhalation Lidocaine 5% Patch External Naloxone HCl 4 MG/0.1ML Liquid Nasal Pantoprazole Sodium 40 MG Tablet Delayed Release Oral oxyCODONE-Acetaminophen 10-325 MG Tablet Oral ProAir HFA 108 (90 Base) MCG/ACT Aerosol Solution Inhalation Prolia 60 MG/ML Solution Subcutaneous , Notes to Pharmacist: *Pick strength-form from [facility] for eRX*Amoxicillin-Pot Clavulanate 875-125 MG Tablet Oral buPROPion HCl ER (SR) 100 MG Tablet Extended Release 12 Hour Oral oxyBUTYnin Chloride ER 5 MG Tablet Extended Release 24 Hour Oral Atorvastatin Calcium 40 MG Tablet Oral Paxlovid (300/100) 20 x 150 MG & 10 x 100MG Tablet Therapy Pack Oral , Notes to Pharmacist: *Reorder from [facility] for eRx and Interaction Alerts*Cyclobenzaprine HCl 5 MG Tablet Oral Clobetasol Propionate 0.05 % Ointment External traZODone HCl 50 MG Tablet Oral Celecoxib 200 MG Capsule Oral HYDROcodone-Acetaminophen 5-325 MG Tablet Oral PARoxetine HCl 40 MG Tablet Oral DIPHENHYDRAMINE 12.5 MG/5 ML , Notes to Pharmacist: *Reorder from [facility] for eRx and Interaction Alerts*Fluticasone Propionate Diskus 50 MCG/ACT Aerosol Powder Breath Activated Inhalation , Notes to Pharmacist: *Reorder from [facility] for eRx and Interaction Alerts*Fluconazole 100 MG Tablet Oral Levothyroxine Sodium 112 MCG Tablet Oral hydrOXYzine HCl 10 MG Tablet 1 tablet as needed Orally twice a day Medication List reviewed and reconciled with the patientDiscontinued Albuterol Sulfate HFA 108 (90 Base) MCG/ACT Aerosol Solution INHALE 2 PUFFS BY MOUTH EVERY 4 TO 6 HOURS NEEDED FOR WHEEZING Inhalation Discontinued Lidocaine 5% Patch External Discontinued Naloxone HCl 4 MG/0.1ML Liquid Nasal Discontinued Pantoprazole Sodium 40 MG Tablet Delayed Release Oral Discontinued oxyCODONE-Acetaminophen 10-325 MG Tablet Oral Discontinued ProAir HFA 108 (90 Base) MCG/ACT Aerosol Solution Inhalation Discontinued Prolia 60 MG/ML Solution Subcutaneous , Notes to Pharmacist: *Pick strength-form from [facility] for eRX*Discontinued Amoxicillin-Pot Clavulanate 875-125 MG Tablet Oral Discontinued buPROPion HCl ER (SR) 100 MG Tablet Extended Release 12 Hour Oral Discontinued oxyBUTYnin Chloride ER 5 MG Tablet Extended Release 24 Hour Oral Discontinued Atorvastatin Calcium 40 MG Tablet Oral Discontinued Paxlovid (300/100) 20 x 150 MG & 10 x 100MG Tablet Therapy Pack Oral , Notes to Pharmacist: *Reorder from [facility] for eRx and Interaction Alerts*Discontinued Cyclobenzaprine HCl 5 MG Tablet Oral Discontinued Clobetasol Propionate 0.05 % Ointment External Discontinued traZODone HCl 50 MG Tablet Oral Discontinued Celecoxib 200 MG Capsule Oral Discontinued HYDROcodone-Acetaminophen 5-325 MG Tablet Oral Discontinued PARoxetine HCl 40 MG Tablet Oral Discontinued DIPHENHYDRAMINE 12.5 MG/5 ML , Notes to Pharmacist: *[facility] Interaction Alert[facility]*Discontinued Fluticasone Propionate Diskus 50 MCG/ACT Aerosol Powder Breath Activated Inhalation , Notes to Pharmacist: *[facility] and Interaction Alert[facility]*Discontinued Fluconazole 100 MG Tablet Oral Discontinued Levothyroxine Sodium 112 MCG Tablet Oral Discontinued hydrOXYzine HCl 10 MG Tablet 1 tablet as needed Orally twice a day Medication List reviewed and reconciled with the patient * Allergies:?N.K.D.A.no[Allerg ies Verified] Objective: * Vitals:?BP:117/95mm Hg, HR:9 4/min, Wt:127.2lbs, Wt-k.7 kg, Ht: 62.00 in, Ht-cm: 157.48 cm, BMI:23.26Index, Body Surface Area: 1.59. * Examination: ???General Examination: ???Mental Status Examination: Patient reports fluctuating depression, with emotional periods at the beginning of each month. Anxiety levels are reportedly low. The patient is engaging in outdoor activities. Patient reports feeling better overall but still has moments of sadness related to her 's . Patient's mother on July 03, which may be contributing to emotional state. Vital Signs: High blood pressure noted during the visit. Physical Examination: Patient reports dysphagia and a history of severe sore throat and muscle cramps, which have led to discontinuation of a recent medication. The patient has a history of radiation therapy to the throat, which could be contributing to current symptoms. Patient mentions difficulty swallowing and needing to chew food thoroughly. Diagnostic Test Results: Blood work is conducted regularly with the patient's oncologist, Dr. Beckett. Recent results indicate some elevated levels, specifics N/A. The patient had radiation therapy last year due to regrowth requiring treatment five days a week. Patient mentions upcoming appointment with ENT doctor for throat issues. Patient reports regular scopes and swallow tests with her doctors. Assessment: * Assessment: 1.?Major depressive disorder , recurrent severe without psychotic features - F33.2 (Primary)???2.?Primary insomnia - F51.01???3.?Generalized anxiety disorder - F41.1???4.?Personal history of malignant neoplasm of thyroid - Z85.850???5.?Oral phase dysphagia - R13.11??? Depression and Anxiety - Assessment: Patient reports improvement in anxiety but continues to experience intermittent depressive episodes. Currently on bupropion SR 100 mg twice a day, trazodone 50 mg at night, and hydroxyzine as needed. No changes to the medication regimen at this time. Patient reports being more emotional during the first week of every month, possibly related to hormonal changes or grief from recent loss of mother. - Plan: Continue current medications and monitor progress. Suggest patient keep a journal to track mood patterns. Follow up in three months. Cancer and Radiation Therapy Side Effects - Assessment: Patient is dealing with cancer and has experienced dysphagia, hoarse throat, severe sore throat, and muscle cramps after starting a new prescription pill. Patient has stopped the medication and is seeing Dr. Beckett for further evaluation. Patient reports difficulty swallowing and is scheduled to see an ENT specialist. - Plan: Encourage patient to follow up with oncologist and ENT specialist for evaluation and management of side effects. Monitor progress in future visits. Paroxetine - Assessment: Patient reports taking paroxetine, but it is not listed in the medication records. Patient will provide a picture of the medication bottle for confirmation. Patient states they have been on paroxetine for years and currently have two extra bottles. - Plan: Once confirmed, add paroxetine to the patient's medication list. No changes to the medication regimen at this time. High Blood Pressure - Assessment: Patient has high blood pressure during the visit. - Plan: Advise patient to see their primary care physician for evaluation and management of high blood pressure. Medication Refills - Assessment: Patient has sufficient supply of bupropion, trazodone, hydroxyzine, paroxetine, and famotidine. Refills needed for Gabapentin and Celebrex. Patient reports having extra supplies of some medications due to automatic refills. - Plan: Refill Gabapentin and Celebrex as needed. Monitor medication adherence and effectiveness during follow-up visits. Follow-up - Plan: Schedule a three-month follow-up appointment to assess the patient's progress and medication regimen. Plan: * Treatment: 2.?Primary insomnia? Continue traZODone HCl Tablet, 50 MG, 1 tablet at bedtime, Oral, Once a day, 90 days, 90 Tablet, Refills 0;?Continue hydrOXYzine HCl Tablet, 25 MG, 1 tablet, Oral, Once a day, 90 days, 90 Tablet.?? * Procedure Codes:?G8733 DOC E LDER MALTX SCR&DOC PLAN TM [id number] BEHAV ASSMT W/SCORE & DOCD/STAND [id number] ELDER MALTX SCR DOC NEG NO F/U RQR * Preventive Medicine:? ??Counseling:?BP Management:?FIRST HYPERTENSIVE BP READING FOLLOW-UP PLAN:?____,?LIFESTYLE RECOMMENDATION:?Hypertension education,?REFERRAL TO ALTERNATIVE / PRIMARY CARE PROVIDER:?Referral to general medical service ____.? * Follow Up:?3 Months (Reason: depression) * Billing Information: * Visit Code:? 25864 OFFICE OUTPATIENT VISIT 25 MINUTES DETAILED HISTORY AND EXAM/MODERATE MEDICAL DECISION MAKING. * Procedure Codes:? G8733 DOC ELDER MALTX SCR&DOC PLAN TM SCR. 20503 BEHAV ASSMT W/SCORE & DOCD/STAND INSTRUMENT. G8734 ELDER MALTX SCR DOC NEG NO F/U RQR. * Sign off status: Completed true * Provider:?SELVIN CASTANEDA MD Date:?02/06 Generated for Elizabeth dominguez/Mery/Pj on:?07/26/2024 08:50 AM LINE PALLETIZER History and Physical Notes * HPI (History of Present Illness) Category Sub-Category Detail Notes Category Not es Depression screening Intervention Depression Screening Findings: Negative Follow-Up for Depression: Mental health care management Suicide Risk Assessment Performed: ____ Additional Evaluation for Depression: Ps ychiatric interview and evaluation Name of the standardized too l used for adult depression screening:: Patient Health Questionnaire (PHQ-9) Depression Screening PHQ-2 (2015 Edition) Little interest or pleasure in doing things?: Not at all Feeling down, depressed, or hopeless?: S everal days Total Score: 1 Elderly Maltreatment Screening Questions Physica l Abuse - Infliction of physical injury by punching, beating, kicking, biting, burning, shaking, or other actions that result in harm.: No Emotional/Psychological Abus e - Willful infliction of mental or emotional anguish by threat, humiliation, isolation, or other verbal or nonverbal conduct.: No Neglect - Involves attitudes of others or actions caused by others - such as family members, friends, or institutional caregivers - that have an extremely detrimental effect upon well-being: No Sexual Abuse - Forcing of un desired sexual behavior by one person upon another against their will who are either competent or unable to fully comprehend and/or give consent. This may also be called molestation.: No Elder Abandonment - Desertio n of an elderly person by an individual who has assumed responsibility for providing care for an elder, or by a person with physical custody of an elder: No Financial or Material Exploi tation - Taking advantage of a person for monetary gain or profit: No Unwarranted Control - Contro lling a person's ability to make choices about living situations, household finances, and medical care.: No Screening Results Results: Elder maltr eatment screen documented as negative, follow-up is not required (G8734) Examination Category Sub-Category Detail Notes Category Not es General Examination Mental Status Examination: Patient reports fluctuating depression, with emotional periods at the beginning of each month. Anxiety levels are reportedly low. The patient is engaging in outdoor activities. Patient reports feeling better overall but still has moments of sadness related to her 's . Patient's mother on July 03, which may be contributing to emotional state. Vital Signs: High blood pressure noted during the visit. Physical Examination: Patient reports dysphagia and a history of severe sore throat and muscle cramps, which have led to discontinuation of a recent medication. The patient has a history of radiation therapy to the throat, which could be contributing to current symptoms. Patient mentions difficulty swallowing and needing to chew food thoroughly. Diagnostic Test Results: Blood work is conducted regularly with the patient's oncologist, Dr. Beckett. Recent results indicate some elevated levels, specifics N/A. The patient had radiation therapy last year due to regrowth requiring treatment five days a week. Patient mentions upcoming appointment with ENT doctor for throat issues. Patient reports regular scopes and swallow tests with her doctors.
--- OUTSIDE RECORDS SUMMARY | 2024-07-26 08:51 | XMS_ITS ---
Author Organization [facility] [address] Address [address] [place] [address] Care Team Providers [employer] Name Role Phone Yaya Villatoro MD Primary Care Provider Selvin Davis Unavailable [phone] Allergies No Known Allergies REASON FOR VISIT depression, 1 Follow up, MIPS Tobacco screening, MIPS PHQ less than 5 Positive with f/u doc, Depression screening positive Medications Medication SIG (Take, Route, Frequency, Duration) Notes Start Date End Date Status buPROPion HCl ER (SR) 100 MG 1 tablet Or al twice a day for 90 days Active traZODone HCl 50 MG 1 tablet at bedtime Oral Once a day for 90 days Active hydrOXYzine HCl 25 MG 1 tablet Oral Once a day for 90 days Active Lenvima (24 MG Daily Dose) 2 x 10 MG & 4 MG Oral for 30 Days Active Ondansetron HCl 8 MG Oral for 30 Days Active Gabapentin 300 MG Oral 11/08/2023 A ctive traZODone HCl 50 MG TAKE 1 TABLET BY SHAYE TH EVERY DAY AT BEDTIME FOR 30 DAYS for 90 Active buPROPion HCl ER (SR) 100 MG TAKE 1 TABL ET BY MOUTH EVERY MORNING AND AT NOON for 90 Active hydrOXYzine HCl 25 MG 1 tablet Oral twic e a day for 90 days Active Famotidine 20 MG Oral 11/08/2023 Ac tive Atorvastatin Calcium 40 MG TAKE 1 TABLET BY MOUTH EVERYDAY AT BEDTIME Oral for 90 Days Active oxyBUTYnin Chloride ER 5 MG TAKE 1 TABLE T BY MOUTH EVERY DAY Oral for 90 Days Active Prochlorperazine Maleate 10 MG TAKE 1 TABLET BY MOUTH EVERY 6 HOURS NEEDED FOR NAUSEA AND VOMITING Oral for 7 Days Active Clobetasol Propionate 0.05 % APPLY TO AF FECTED AREA TWICE A DAY NEEDED External for 15 Days Active PARoxetine HCl 40 MG 1 tablet in the mor jose Oral Once a day for 90 days Active Acetaminophen Extra Strength 500 MG TAKE 2 (TWO) TABLETS BY MOUTH EVERY 8 HOURS NEEDED FOR FEVER OR PAIN Oral for 5 Days Active Cyclobenzaprine HCl 5 MG TAKE 1 TABLET B Y MOUTH THREE TIMES A DAY NEEDED Oral for 30 Days Active Levothyroxine Sodium 112 MCG TAKE 1 TAB BY MOUTH DAILY BEFORE BREAKFAST EXCEPT WEDNESDAY. ON WEDNESDAY, TAKE 1 & 1/2 TABS Oral for 90 Days Active Pantoprazole Sodium 40 MG TAKE 1 TABLET BY MOUTH EVERY DAY Oral for 90 Days Active Social History Sex Assigned At : Social History Observation Description Sex Assigned At Female Problems Problem Type SNOMED Code ICD Code Onset Dates Problem Status W/U Status Risk Notes Problem Current smoker (63374275) Current smoker (F17.200) Active confirmed Vital Signs Blood pressure systolic 130 mm Hg 05/10/20 24 Blood pressure diastolic 74 mm Hg 024 Heart Rate 97 /min 05/10/2024 Height 62.00 in 05/10/2024 Weight 115 lbs 05/10/2024 BMI 21.03 kg/m2 05/10/2024 Height-cm 157.48 cm 05/10/2024 Weight-kg 52.16 kg 05/10/2024 Encounters Encounter Location Date Provider Diagnosis [facility] [employer] [address] [address] 05/10/2024 Selvin Castaneda Major depressive disorder, recurrent severe without psychotic features F33.2 ; Primary insomnia F51.01 ; Generalized anxiety disorder F41.1 ; Personal history of malignant neoplasm of thyroid Z85.850 ; Oral phase dysphagia R13.11 and Current smoker F17.200 Assessments Encounter Date Diagnosis (ICD Code) Assessment Notes Treatment Notes Treatment Clinical Notes Section Notes 05/10/2024 Major depressive disorder, recurrent severe without psychotic features (ICD-10 - F33.2) Chronic pain - Plan: - Continue current pain management regimen. - Encourage patient to engage in light physical activity as tolerated. - Note: Patient reports increased pain during rainy days. Depression - Plan: - Continue paroxetine (Paxil) 40 mg once a day. - Continue bupropion 100 mg twice a day. - Encourage patient to reach out to support system (e.g., [id number]-eu-ypj) during difficult times. - Monitor for any signs of worsening depression or suicidal ideation. - Note: Patient reports winter depression and upcoming anniversary of mother's in June. Anxiety - Plan: - Continue hydroxyzine 10 mg twice a day as needed. - Encourage patient to practice relaxation techniques and coping strategies for social anxiety. - Note: Patient reports having social anxiety. Insomnia - Plan: - Continue trazodone 50 mg at bedtime as needed. - Encourage patient to maintain good sleep hygiene. Follow-up - Plan: - Schedule a three-month follow-up appointment. - Instruct patient to contact the clinic if any concerns or medication refills are needed before the next appointment. - Note: Prescriptions to be sent to [facility] in [place]. Additional notes - Plan: - Address stress related to patient's son (37 years old) moving back home. - Coordinate care with multiple doctors managing patient's prescriptions. - Encourage continued support from krnwtx-eu-uwm. - Continue monitoring for suicidal ideation, which patient currently denies. 05/10/2024 Primary insomnia (ICD-10 - F51.01) Chronic pain - Plan: - Continue current pain management regimen. - Encourage patient to engage in light physical activity as tolerated. - Note: Patient reports increased pain during rainy days. Depression - Plan: - Continue paroxetine (Paxil) 40 mg once a day. - Continue bupropion 100 mg twice a day. - Encourage patient to reach out to support system (e.g., xpfzbr-qa-nhf) during difficult times. - Monitor for any signs of worsening depression or suicidal ideation. - Note: Patient reports winter depression and upcoming anniversary of mother's in June. Anxiety - Plan: - Continue hydroxyzine 10 mg twice a day as needed. - Encourage patient to practice relaxation techniques and coping strategies for social anxiety. - Note: Patient reports having social anxiety. Insomnia - Plan: - Continue trazodone 50 mg at bedtime as needed. - Encourage patient to maintain good sleep hygiene. Follow-up - Plan: - Schedule a three-month follow-up appointment. - Instruct patient to contact the clinic if any concerns or medication refills are needed before the next appointment. - Note: Prescriptions to be sent to [facility] in [place]. Additional notes - Plan: - Address stress related to patient's son (37 years old) moving back home. - Coordinate care with multiple doctors managing patient's prescriptions. - Encourage continued support from foqgzk-vv-sfl. - Continue monitoring for suicidal ideation, which patient currently denies. 05/10/2024 Generalized anxiety disorder (ICD-10 - F41.1) Chronic pain - Plan: - Continue current pain management regimen. - Encourage patient to engage in light physical activity as tolerated. - Note: Patient reports increased pain during rainy days. Depression - Plan: - Continue paroxetine (Paxil) 40 mg once a day. - Continue bupropion 100 mg twice a day. - Encourage patient to reach out to support system (e.g., vhkmiy-no-mtd) during difficult times. - Monitor for any signs of worsening depression or suicidal ideation. - Note: Patient reports winter depression and upcoming anniversary of mother's in June. Anxiety - Plan: - Continue hydroxyzine 10 mg twice a day as needed. - Encourage patient to practice relaxation techniques and coping strategies for social anxiety. - Note: Patient reports having social anxiety. Insomnia - Plan: - Continue trazodone 50 mg at bedtime as needed. - Encourage patient to maintain good sleep hygiene. Follow-up - Plan: - Schedule a three-month follow-up appointment. - Instruct patient to contact the clinic if any concerns or medication refills are needed before the next appointment. - Note: Prescriptions to be sent to [facility] in [place]. Additional notes - Plan: - Address stress related to patient's son (37 years old) moving back home. - Coordinate care with multiple doctors managing patient's prescriptions. - Encourage continued support from fmruvt-lm-bsz. - Continue monitoring for suicidal ideation, which patient currently denies. 05/10/2024 Personal history of malignant neoplasm of thyroid (ICD-10 - Z85.850) Chronic pain - Plan: - Continue current pain management regimen. - Encourage patient to engage in light physical activity as tolerated. - Note: Patient reports increased pain during rainy days. Depression - Plan: - Continue paroxetine (Paxil) 40 mg once a day. - Continue bupropion 100 mg twice a day. - Encourage patient to reach out to support system (e.g., blnlop-nw-gzd) during difficult times. - Monitor for any signs of worsening depression or suicidal ideation. - Note: Patient reports winter depression and upcoming anniversary of mother's in June. Anxiety - Plan: - Continue hydroxyzine 10 mg twice a day as needed. - Encourage patient to practice relaxation techniques and coping strategies for social anxiety. - Note: Patient reports having social anxiety. Insomnia - Plan: - Continue trazodone 50 mg at bedtime as needed. - Encourage patient to maintain good sleep hygiene. Follow-up - Plan: - Schedule a three-month follow-up appointment. - Instruct patient to contact the clinic if any concerns or medication refills are needed before the next appointment. - Note: Prescriptions to be sent to [facility] in [place]. Additional notes - Plan: - Address stress related to patient's son (37 years old) moving back home. - Coordinate care with multiple doctors managing patient's prescriptions. - Encourage continued support from syudps-nw-tgm. - Continue monitoring for suicidal ideation, which patient currently denies. 05/10/2024 Oral phase dysphagia (ICD-10 - R13.11) Chronic pain - Plan: - Continue current pain management regimen. - Encourage patient to engage in light physical activity as tolerated. - Note: Patient reports increased pain during rainy days. Depression - Plan: - Continue paroxetine (Paxil) 40 mg once a day. - Continue bupropion 100 mg twice a day. - Encourage patient to reach out to support system (e.g., dvlpls-ey-suj) during difficult times. - Monitor for any signs of worsening depression or suicidal ideation. - Note: Patient reports winter depression and upcoming anniversary of mother's in June. Anxiety - Plan: - Continue hydroxyzine 10 mg twice a day as needed. - Encourage patient to practice relaxation techniques and coping strategies for social anxiety. - Note: Patient reports having social anxiety. Insomnia - Plan: - Continue trazodone 50 mg at bedtime as needed. - Encourage patient to maintain good sleep hygiene. Follow-up - Plan: - Schedule a three-month follow-up appointment. - Instruct patient to contact the clinic if any concerns or medication refills are needed before the next appointment. - Note: Prescriptions to be sent to [facility] in [place]. Additional notes - Plan: - Address stress related to patient's son (37 years old) moving back home. - Coordinate care with multiple doctors managing patient's prescriptions. - Encourage continued support from srnelz-jw-dmp. - Continue monitoring for suicidal ideation, which patient currently denies. 05/10/2024 Current smoker (ICD-10 - F17.200) Chronic pain - Plan: - Continue current pain management regimen. - Encourage patient to engage in light physical activity as tolerated. - Note: Patient reports increased pain during rainy days. Depression - Plan: - Continue paroxetine (Paxil) 40 mg once a day. - Continue bupropion 100 mg twice a day. - Encourage patient to reach out to support system (e.g., jdmoeg-as-wpq) during difficult times. - Monitor for any signs of worsening depression or suicidal ideation. - Note: Patient reports winter depression and upcoming anniversary of mother's in June. Anxiety - Plan: - Continue hydroxyzine 10 mg twice a day as needed. - Encourage patient to practice relaxation techniques and coping strategies for social anxiety. - Note: Patient reports having social anxiety. Insomnia - Plan: - Continue trazodone 50 mg at bedtime as needed. - Encourage patient to maintain good sleep hygiene. Follow-up - Plan: - Schedule a three-month follow-up appointment. - Instruct patient to contact the clinic if any concerns or medication refills are needed before the next appointment. - Note: Prescriptions to be sent to [facility] in [place]. Additional notes - Plan: - Address stress related to patient's son (37 years old) moving back home. - Coordinate care with multiple doctors managing patient's prescriptions. - Encourage continued support from wsgatp-lv-urc. - Continue monitoring for suicidal ideation, which patient currently denies. Plan Of Treatment Medication Medication Name Sig Start Date Stop Date Notes buPROPion HCl ER (SR) 100 MG 1 tablet Or al twice a day for 90 days traZODone HCl 50 MG 1 tablet at bedtime Oral Once a day for 90 days hydrOXYzine HCl 25 MG 1 tablet Oral Once a day for 90 days PARoxetine HCl 40 MG 1 tablet in the mor jose Oral Once a day for 90 days Next Appt Details Follow Up: 3 Months, Reason: follow up for medication changed. Progress Notes * LETA HARDYB:[birth year] (63 yo F)Acc No.[id number]:05/10/2024 Patient:?ELIZABETH HARDY Provider:?SELVIN CASTANEDA MD :1960???Age:63 Y???Sex:Female D ate:05/10/2024 Address:[address] , [facility] Pcp:Yaya Villatoro MD Subjective: * Chief Complaints: * ???Depression1 Follow upMIPS Tobacco screeningMIPS PHQ less than 5 Positive with f/u docDepression screening positive * HPI: ???Depression screening:? Chief Complaint: Difficulty walking and limited use of hands and arms The note is transcribed using speech recognition software. It is a reflection of a visit with the patient. It might have some inaccuracy, including medication names and transcribing errors, though efforts have been made to correct them. The patient reports increased time spent at home watching TV due to physical limitations. She experiences pain on rainy days and has a history of winter depression, for which she takes medication. Her mood is generally not good due to her physical limitations. Mental Health: The patient has been experiencing some anxiety and occasional panic, which she attributes to her adult son moving back home. She has a history of loss, with her mother and passing away within a short period, and anticipates a difficult upcoming holiday season due to the anniversary of her mother's . The patient also reports coping with social anxiety but manages it without any inclination for self-harm. Medication Management: The patient takes hydroxyzine as needed for anxiety and bupropion for depression. She also mentions taking paroxetine (Paxil) and trazodone as part of her medication regimen. The patient reports having multiple doctors and taking various medications. Support System: The patient has a support system in place, including her iaupgd-de-isx, whom she contacts when feeling overwhelmed. Additional Details: - The patient's 37-year-old son with ADHD recently moved back home to save money. - She has a sbxbkc-dh-yan who is ill and declining, which is causing additional stress. - The patient tries to stay active by walking around the house and doing small tasks to cope with her depression. - She expresses a desire to get out more but is limited by her physical condition and pain. ?PHQ-9?Little interest or pleasure in doing things?Several days,?Feeling down, depressed, or hopeless?Several days,?Trouble falling or staying asleep, or sleeping too much?Several days,?Feeling tired or having little energy?Not at all,?Poor appetite or overeating?Nearly every day,?Feeling bad about yourself or that you are a failure, or have let yourself or your family down?Not at all,?Trouble concentrating on things, such as reading the newspaper or watching television?Not at all,?Moving or speaking so slowly that other people could have noticed; or the opposite, being so fidgety or restless that you have been moving around a lot more than usual?Not at all,?Thoughts that you would be better off or of hurting yourself in some way?Not at all,?Total Score 6,?Interpretation?Mild Depression.?Intervention?Depression Screening Findings?Positve,?Follow-Up for Depression?Mental health treatment assessment, Patient follow-up to return when and if necessary,?Suicide Risk Assessment Performed? ,?Additional Evaluation for Depression?Psychiatric interview and evaluation,?Name of the standardized tool used for adult depression screening:?Patient Health Questionnaire (PHQ-9).?Depression Screening:?LAUREL-7 (2018 Edition)?Feeling nervous, anxious, or on edge?Not at all,?Not being able to stop or control worrying?Not at all,?Worrying too much about different things?Not at all,?Trouble relaxing?Not at all,?Being so restless that it is hard to sit still?Not at all,?Becoming easily annoyed or irritable?Several days,?Feeling afraid as if something awful might happen?Not at all,?Total LAUREL-7 Score?1,?If you checked any problems, how difficult have they made it for you to do your work, take care of things at home, or get along with other people??Somewhat difficult,?Interpretation of Total?(0 to 4) No Anxiety.? * Medical History:? * Surgical History:? * Hospitalization/Major Diagno stic Procedure:? * Social History:?Migrated Social History:?Migrated Social History: Alcohol Intake: None 04/08/2023,Tobacco Years: Current every day smoker 06/17/2023. * Medications:?TakingAcetamino phen Extra Strength 500 MG [...] HOURS NEEDED FOR NAUSEA AND VOMITING Oral Clobetasol Propionate 0.05 % Ointment APPLY TO AFFECTED AREA TWICE A DAY NEEDED External Atorvastatin Calcium 40 MG Tablet TAKE 1 TABLET BY MOUTH EVERYDAY AT BEDTIME Oral Famotidine 20 MG Tablet Oral Gabapentin 300 MG Capsule Oral traZODone HCl 50 MG Tablet TAKE 1 TABLET BY MOUTH EVERY DAY AT BEDTIME FOR 30 DAYS buPROPion HCl ER (SR) 100 MG Tablet Extended Release 12 Hour TAKE 1 TABLET BY MOUTH EVERY MORNING AND AT NOON hydrOXYzine HCl 25 MG Tablet 1 tablet Oral twice a day Lenvima (24 MG Daily Dose) 2 x 10 MG & 4 MG Capsule Therapy Pack Oral Ondansetron HCl 8 MG Tablet Oral PARoxetine HCl 40 MG Tablet Oral Taking Acetaminophen Extra Strength [...] NEEDED FOR NAUSEA AND VOMITING Oral Taking Clobetasol Propionate 0.05 % Ointment APPLY TO AFFECTED AREA TWICE A DAY NEEDED External Taking Atorvastatin Calcium 40 MG Tablet TAKE 1 TABLET BY MOUTH EVERYDAY AT BEDTIME Oral Taking Famotidine 20 MG Tablet Oral Taking Gabapentin 300 MG Capsule Oral Taking traZODone HCl 50 MG Tablet TAKE 1 TABLET BY MOUTH EVERY DAY AT BEDTIME FOR 30 DAYS Taking buPROPion HCl ER (SR) 100 MG Tablet Extended Release 12 Hour TAKE 1 TABLET BY MOUTH EVERY MORNING AND AT NOON Taking hydrOXYzine HCl 25 MG Tablet 1 tablet Oral twice a day Taking Lenvima (24 MG Daily Dose) 2 x 10 MG & 4 MG Capsule Therapy Pack Oral Taking Ondansetron HCl 8 MG Tablet Oral Taking PARoxetine HCl 40 MG Tablet Oral DiscontinuedCalcitriol 0.5 MCG Capsule Oral Medication List reviewed and reconciled with the patientDiscontinued Calcitriol 0.5 MCG Capsule Oral Medication List reviewed and reconciled with the patient * Allergies:?N.K.D.A.no[Allerg ies Verified] Objective: * Vitals:?BP:130/74mm Hg, HR:9 7/min, Wt:115lbs, Wt-k.16 kg, Ht: 62.00 in, Ht- cm: 157.48 cm, BMI:21.03Index, Body Surface Area: 1.51. * Examination: ???General Examination: ???Mental Status Examination: Patient reports persistent low mood, exacerbated by pain and limited mobility. Experiences seasonal affective disorder, managed with medication. Describes social anxiety but denies any inclinations towards self- harm. Coping with recent familial losses and anticipates emotional difficulty with upcoming anniversaries. Reports occasional anxiety related to son moving back home. Physical Examination: Patient reports significant pain and limited use of hands and arms. Difficulty in mobility, primarily remains sedentary at home. Mentions extra pain during rainy days. Assessment: * Assessment: 1.?Major depressive disorder , recurrent severe without psychotic features - F33.2 (Primary)???2.?Primary insomnia - F51.01???3.?Generalized anxiety disorder - F41.1???4.?Personal history of malignant neoplasm of thyroid - Z85.850???5.?Oral phase dysphagia - R13.11???6.?Current smoker - F17.200??? Chronic pain - Plan: - Continue current pain management regimen. - Encourage patient to engage in light physical activity as tolerated. - Note: Patient reports increased pain during rainy days. Depression - Plan: - Continue paroxetine (Paxil) 40 mg once a day. - Continue bupropion 100 mg twice a day. - Encourage patient to reach out to support system (e.g., sqdjen-aa-iwf) during difficult times. - Monitor for any signs of worsening depression or suicidal ideation. - Note: Patient reports winter depression and upcoming anniversary of mother's in June. Anxiety - Plan: - Continue hydroxyzine 10 mg twice a day as needed. - Encourage patient to practice relaxation techniques and coping strategies for social anxiety. - Note: Patient reports having social anxiety. Insomnia - Plan: - Continue trazodone 50 mg at bedtime as needed. - Encourage patient to maintain good sleep hygiene. Follow-up - Plan: - Schedule a three-month follow-up appointment. - Instruct patient to contact the clinic if any concerns or medication refills are needed before the next appointment. - Note: Prescriptions to be sent to [facility] in [place]. Additional notes - Plan: - Address stress related to patient's son (37 years old) moving back home. - Coordinate care with multiple doctors managing patient's prescriptions. - Encourage continued support from oxcudg-ts-hno. - Continue monitoring for suicidal ideation, which patient currently denies. Plan: * Treatment: 2.?Primary insomnia? Refill traZODone HCl Tablet, 50 MG, 1 tablet at bedtime, Oral, Once a day, 90 days, 90 Tablet, Refills 0;?Continue hydrOXYzine HCl Tablet, 25 MG, 1 tablet, Oral, Once a day, 90 days, 90 Tablet, Refills 0.?? * Procedure Codes:?G9902 Pt suri rn tbco and id as [id number] BEHAV ASSMT W/SCORE & DOCD/STAND [id number] VISIT COMPLEXITY INHERENT TO ONGOING CARE RELATED TO A PATIENT'S SINGLE, SERIOUS CONDITION OR A COMPLEX CONDITION * Preventive Medicine:? ??Counseling:?Communication to patient:?Counseled the Patient on tobacco use; cessation provided?05/10/2024 .?Smoking Cessation counseling done Discuss the importance of quitting smoking,. * Follow Up:?3 Months (Reason: follow up for medication changed.) * Billing Information: * Visit Code:? 59741 OFFICE OUTPATIENT VISIT 25 MINUTES DETAILED HISTORY AND EXAM/MODERATE MEDICAL DECISION MAKING. * Procedure Codes:? G9902 Pt scrn tbco and id as user. [id number] BEHAV ASSMT W/SCORE & DOCD/STAND INSTRUMENT. G2211 VISIT COMPLEXITY INHERENT TO ONGOING CARE RELATED TO A PATIENT'S SINGLE, SERIOUS CONDITION OR A COMPLEX CONDITION. * AVER LETTERING Sign off status: Completed true * Provider:?SELVIN CASTANEDA MD Date:?05/10 Generated for Elizabeth dominguez/Mery/eTransmitting on:?07/26/2024 08:50 AM ENGRAVER LETTERING History and Physical Notes * HPI (History of Present Illness) Category Sub-Category Detail Notes Category Not es Depression screening PHQ-9 Little inte rest or pleasure in doing things: Several days Feeling down, depressed, or hopeless: Se veral days Trouble falling or staying asleep, or sl eeping too much: Several days Feeling tired or having little energy: N ot at all Poor appetite or overeating: Nearly ever y day Feeling bad about yourself o r that you are a failure, or have let yourself or your family down: Not at all Trouble concentrating on thi ngs, such as reading the newspaper or watching television: Not at all Moving or speaking so slowly that other people could have noticed; or the opposite, being so fidgety or restless that you have been moving around a lot more than usual: Not at all Thoughts that you would be b court off or of hurting yourself in some way: Not at all Total Score: 6 Interpretation: Mild Depression Intervention Depression Screening Findings: P ositve Follow-Up for Depression: [facility] treatment assessment, Patient follow-up to return when and if necessary Suicide Risk Assessment Performed: Additional Evaluation for De pression: Psychiatric interview and evaluation Name of the standardized too l used for adult depression screening:: Patient Health Questionnaire (PHQ-9) Depression Screening LAUREL-7 (2018 Edition) Osmel g nervous, anxious, or on edge: Not at all Not being able to stop or control worryi ng: Not at all Worrying too much about different things : Not at all Trouble relaxing: Not at all Being so restless that it is hard to sit still: Not at all Becoming easily annoyed or irritable: Se veral days Feeling afraid as if something awful antonia ht happen: Not at all Total LAUREL-7 Score: 1 If you checked any problems, how difficult have they made it for you to do your work, take care of things at home, or get along with other people?: Somewhat difficult Interpretation of Total: (0 to 4) No Anx iety Examination Category Sub-Category Detail Notes Category Not es General Examination Mental Status Examination: Patient reports persistent low mood, exacerbated by pain and limited mobility. Experiences seasonal affective disorder, managed with medication. Describes social anxiety but denies any inclinations towards self-harm. Coping with recent familial losses and anticipates emotional difficulty with upcoming anniversaries. Reports occasional anxiety related to son moving back home. Physical Examination: Patient reports significant pain and limited use of hands and arms. Difficulty in mobility, primarily remains sedentary at home. Mentions extra pain during rainy days.
--- OUTSIDE RECORDS SUMMARY | 2024-07-26 08:51 | XMS_ITS | Encounter Summary ---
Author Organization [facility] Address [address] [place] [address]. [place] [address] [place] [address] Care Team Providers Care Weekend Anchor Name Role Phone Brenda Hopper MD Primary Care Provider [phone] Encounter Details Date Type Department Care Team (Late st Contact Info) Description 12/02/2018 Orders Only [facility] Multispecialty Care - [address] [place] [address] Angeline Graves MA Social History Tobacco Use [...] on filedocumented in this encounter Care Teams Weekend Anchor Relationship Specialty Start Date End Date Brenda Hopper MD 3 [facility] [address] [place], [place] [id number] PCP - General FAMILY PRACTICE 10/07/18 documented as of this encounter
--- OUTSIDE RECORDS SUMMARY | 2024-07-26 08:51 | XMS_ITS | Encounter Summary ---
Author Organization [facility] Address [address] [place] [address]. [place], [place] [address] [place] [address] Care Team Providers Care Firer Electric Locomotive Name Role Phone Brenda Hopper MD Primary Care Provider [phone] Encounter Details Date Type Department Care Team (Latest Contact Info) Description 10/07/2018 2:25 PM CDT - 10/07/2018 11:59 PM CDT Hospital Encounter [facility] Diagnostic Imaging [address] [address] Wolf Flores MD 1 [facility] [place] [address][phone] (Work) Discharge Disposition: Home or [...] limb documented in this encounter Care Teams Firer Electric Locomotive Relationship Specialty Start Date End Date Brenda Hopper MD [address] [address] PCP - General FAMILY PRACTICE 10/07/18 documented as of this encounter
--- OUTSIDE RECORDS SUMMARY | 2024-07-26 08:51 | XMS_ITS | Encounter Summary ---
Author Organization [facility] Address [address] [place] [address]. [place] [address] [place] [address] Care Team Providers Care Test Center Administrator Name Role Phone Brenda Hopper MD Primary Care Provider [phone] Encounter Details Date Type Department Care Team [...] on filedocumented in this encounter Care Teams Test Center Administrator Relationship Specialty Start Date End Date Brenda Hopper MD [address] [id number] PCP - General FAMILY PRACTICE 10/07/18 documented as of this encounter
--- OUTSIDE RECORDS SUMMARY | 2024-07-26 08:51 | XMS_ITS ---
Author Organization [facility] Address [facility] [address] [facility] [address] [place] [address] Care Team Providers Care Subassembler Name Role Phone Yaya Villatoro MD Primary Care Provider Mirella Selvin [place] Unavailable [phone] REASON FOR VISIT Waiting for call back Social History Sex Assigned At : Social History Observation Description Sex Assigned At Female Encounters Encounter Location Date Provider Diagnosis [facility] [address] [facility] [address] [place] [address] 12/08/2023 Selvin Deng Plan Of Treatment No Information Progress Notes * LETA HARDYB:[birth year] 57 (63 yo F)Acc No.[id number]:12/08/2023 Patient:?HAYLEYSCOTTELIZABETH :1960???Age:63 Y???Sex:Female Address:[address] [place], [address] * true * Date:? Generated for Elizabeth dominguez/Mery/eTransmitting on:?07/26/2024 08:51 AM ANGLE BENDER
--- OUTSIDE RECORDS SUMMARY | 2024-07-26 08:51 | XMS_ITS | Patient Health Record ---
Author Organization [facility] Address [address] [place] [address] Care Team Providers Care Bone Drier Operator Name Role Phone Yaya Villatoro MD Primary Care Provider Selvin Davis Unavailable [phone] Alis Garcai Unavailable [phone] Migration, Provider Unavailable Unavailable Allergies No Known Allergies Reason For Referral No Information Medications Medication SIG (Take, Route, Frequency, Duration) Notes Start Date End Date Status buPROPion HCl ER (SR) 100 MG 1 tablet Or al twice a day for 90 days Active traZODone HCl 50 MG 1 tablet at bedtime Oral Once a day for 90 days Active Atorvastatin Calcium 40 MG TAKE 1 TABLET BY MOUTH EVERYDAY AT BEDTIME Oral for 90 Days Active Famotidine 20 MG Oral 11/08/2023 Ac tive Pantoprazole Sodium 40 MG TAKE 1 TABLET BY MOUTH EVERY DAY Oral for 90 Days Active Lenvima (24 MG Daily Dose) 2 x 10 MG & 4 MG Oral for 30 Days Active oxyBUTYnin Chloride ER 5 MG TAKE 1 TABLE T BY MOUTH EVERY DAY Oral for 90 Days Active Ondansetron HCl 8 MG Oral for 30 Days Active Prochlorperazine Maleate 10 MG TAKE 1 TABLET BY MOUTH EVERY 6 HOURS NEEDED FOR NAUSEA AND VOMITING Oral for 7 Days Active Clobetasol Propionate 0.05 % APPLY TO AF FECTED AREA TWICE A DAY NEEDED External for 15 Days Active Gabapentin 300 MG Oral 11/08/2023 A ctive PARoxetine HCl 40 MG 1 tablet in the mor jose Oral Once a day for 90 days Active Acetaminophen Extra Strength 500 MG TAKE 2 (TWO) TABLETS BY MOUTH EVERY 8 HOURS NEEDED FOR FEVER OR PAIN Oral for 5 Days Active traZODone HCl 50 MG TAKE 1 TABLET BY SHAYE TH EVERY DAY AT BEDTIME FOR 30 DAYS for 90 Active Cyclobenzaprine HCl 5 MG TAKE 1 TABLET B Y MOUTH THREE TIMES A DAY NEEDED Oral for 30 Days Active buPROPion HCl ER (SR) 100 MG TAKE 1 TABL ET BY MOUTH EVERY MORNING AND AT NOON for 90 Active Levothyroxine Sodium 112 MCG TAKE 1 TAB BY MOUTH DAILY BEFORE BREAKFAST EXCEPT WEDNESDAY. ON WEDNESDAY, TAKE 1 & 1/2 TABS Oral for 90 Days Active hydrOXYzine HCl 25 MG TAKE 1 TABLET BY M OUTH TWICE A DAY for 90 Active Social History Sex Assigned At : Social History Observation Description Sex Assigned At Female Problems Problem Type SNOMED Code ICD Code Onset Dates Problem Status W/U Status Risk Notes Problem Severe recurrent major depression without psychotic features (92942082) Major depressive disorder, recurrent severe without psychotic features (F33.2) 2023 Active confirmed Problem Generalized anxiety disorder (84914428) Generalized anxiety disorder (F41.1) 2023 Active confirmed Problem Primary insomnia (5392053) Primary insomnia (F51.01) 2023 Active confirmed Problem History of malignant neoplasm of thyroid (501113400) Personal history of malignant neoplasm of thyroid (Z85.850) 2023 Active confirmed Problem Chronic fatigue syndrome (47482751) Chronic fatigue (R53.82) 2018 Active confirmed Problem Current smoker (91222462) Current smoker (F17.200) Active confirmed Problem Pure hypercholesterolemia (215371775) Pure hypercholesterolemia (E78.00) 2018 Active confirmed Problem Localized, primary osteoarthritis of the pelvic region and thigh (018892683) Primary osteoarthritis of left hip (M16.12) 2018 Active confirmed Problem 465821692 Oral phase dysph agia (R13.11) Active confirmed Vital Signs Heart Rate 97 /min 05/10/2024 Blood pressure diastolic 74 mm Hg 05/10/2024 Height-cm 157.48 cm 05/10/2024 Weight-kg 52.16 kg 05/10/2024 Height 62.00 in 05/10/2024 Blood pressure systolic 130 mm Hg 05/10/2024 Weight 115 lbs 05/10/2024 BMI 21.03 kg/m2 05/10/2024 Encounters Encounter Location Date Provider Diagnosis [address] [place] [address] 12/08/2023 Alis Dawn [facility] [address] [facility] [address] [place] [address] 09/06/2023 Selvin Deng Personal history of malignant neoplasm of thyroid Z85.850 ; Major depressive disorder, recurrent severe without psychotic features F33.2 ; Primary insomnia F51.01 and Generalized anxiety disorder F41.1 [place] [address] [facility] [address] [place] [address] 11/08/2023 Selvin Deng Major depressive disorder, recurrent severe without psychotic features F33.2 ; Primary insomnia F51.01 ; Generalized anxiety disorder F41.1 and Personal history of malignant neoplasm of thyroid Z85.850 [place] [address] [facility] [address] [place] [address] 02/07/2024 Selvinmarga Deng Major depressive disorder, recurrent severe without psychotic features F33.2 ; Primary insomnia F51.01 ; Generalized anxiety disorder F41.1 ; Personal history of malignant neoplasm of thyroid Z85.850 and Oral phase dysphagia R13.11 [facility] [address] [facility] [address] [place] [address] 05/10/2024 Selvin Deng Major depressive disorder, recurrent severe without psychotic features F33.2 ; Primary insomnia F51.01 ; Generalized anxiety disorder F41.1 ; Personal history of malignant neoplasm of thyroid Z85.850 ; Oral phase dysphagia R13.11 and Current smoker F17.[address] [place] [address] 08/30/2023 Provider Migration [address] [place] [address] 08/31/2023 Provider Migration [facility], [place] [address] [facility] [address] [place] [address] 09/06/2023 Provider Migration [facility], [place] [address] [facility] [address] [place] [address] 11/20/2023 Provider Migration [facility], [place] [address] [facility] [address] [place] [address] 11/21/2023 Provider Migration [facility], [address] [place] [address] 12/08/2023 Selvin Deng Assessments Encounter Date Diagnosis (ICD Code) Assessment Notes Treatment Notes Treatment Clinical Notes Section Notes 09/06/2023 Major depressive disorder, recurrent severe without psychotic features (ICD-10 - F33.2) 09/06/2023 Generalized anxiety disorder (ICD-10 - F41.1) 09/06/2023 Primary insomnia (ICD-10 - F51.01) 09/06/2023 Personal history of malignant neoplasm of thyroid (ICD-10 - Z85.850) 11/08/2023 Major depressive disorder, recurrent severe without psychotic features (ICD-10 - F33.2) 11/08/2023 Generalized anxiety disorder (ICD-10 - F41.1) 11/08/2023 Primary insomnia (ICD-10 - F51.01) 11/08/2023 Personal history of malignant neoplasm of thyroid (ICD-10 - Z85.850) 02/07/2024 Major depressive disorder, recurrent severe without [...] assess the patient's progress and medication regimen. 05/10/2024 Major depressive disorder, recurrent severe without [...] to reach out to support system (e.g., suolpy-qe-xjp) during difficult times. - Monitor for any [...] - Note: Prescriptions to be sent to [facility] in [place]. Additional notes - Plan: - Address stress related to patient's son (37 years old) moving back home. - Coordinate care with multiple doctors managing patient's prescriptions. - Encourage continued support from kumkus-hs-oml. - Continue monitoring for suicidal ideation, which [...] to reach out to support system (e.g., mkcsvj-am-qog) during difficult times. - Monitor for any [...] - Note: Prescriptions to be sent to [facility] in [place]. Additional notes - Plan: - Address stress related to patient's son (37 years old) moving back home. - Coordinate care with multiple doctors managing patient's prescriptions. - Encourage continued support from bekhiu-fo-xzr. - Continue monitoring for suicidal ideation, which [...] to reach out to support system (e.g., rzjapv-cy-bgp) during difficult times. - Monitor for any [...] - Note: Prescriptions to be sent to [facility] in [place]. Additional notes - Plan: - Address stress related to patient's son (37 years old) moving back home. - Coordinate care with multiple doctors managing patient's prescriptions. - Encourage continued support from keunjc-xw-mim. - Continue monitoring for suicidal ideation, which patient currently denies. 02/07/2024 Generalized anxiety disorder (ICD-10 - F41.1) [...] assess the patient's progress and medication regimen. 05/10/2024 Personal history of malignant neoplasm of [...] to reach out to support system (e.g., kkjput-ku-brz) during difficult times. - Monitor for any [...] - Note: Prescriptions to be sent to [facility] in [place]. Additional notes - Plan: - Address stress related to patient's son (37 years old) moving back home. - Coordinate care with multiple doctors managing patient's prescriptions. - Encourage continued support from cvvnux-gl-mad. - Continue monitoring for suicidal ideation, which [...] to reach out to support system (e.g., otzwvd-jq-zjq) during difficult times. - Monitor for any [...] - Note: Prescriptions to be sent to [facility] in [place]. Additional notes - Plan: - Address stress related to patient's son (37 years old) moving back home. - Coordinate care with multiple doctors managing patient's prescriptions. - Encourage continued support from oybttt-pz-ayi. - Continue monitoring for suicidal ideation, which patient currently denies. 02/07/2024 Oral phase dysphagia (ICD-10 - R13.11) [...] assess the patient's progress and medication regimen. 05/10/2024 Current smoker (ICD-10 - F17.200) Chronic [...] to reach out to support system (e.g., rmkslv-fm-fhm) during difficult times. - Monitor for any [...] - Note: Prescriptions to be sent to [facility] in [place]. Additional notes - Plan: - Address stress related to patient's son (37 years old) moving back home. - Coordinate care with multiple doctors managing patient's prescriptions. - Encourage continued support from afeeiy-ez-mrh. - Continue monitoring for suicidal ideation, which patient currently denies. Plan Of Treatment No Information Insurance Providers Payer Name Payer Address Payer Phone Subscriber Number Group Number Insured Name Patient Relationship to Insured Coverage Start Date Coverage End Date [employer] Medicare Replacement/ Advantage - [place] [address] [place] [phone] [id number] ELIZABETH HARDY Self - patient is the insured Medical (General) History Medical History History ICD Code Problems: Anxiety disorder Generalized anxiety disorder History of malignant neoplasm of thyroid Metastatic malignant neoplasm to bone Primary insomnia Severe recurrent major depression withou t psychotic features , Surgical History Surgery Date(Month/Year) Other 08/05/2020
--- OUTSIDE RECORDS SUMMARY | 2024-07-26 08:51 | XMS_ITS | Encounter Summary ---
Author Organization [facility] Address [address] [place] [address]. [place], [place] [address] [place] [address] Care Team Providers Care Transplant Immunologist Name Role Phone Brenda Hopper MD Primary Care Provider [phone] Reason for Visit * Reason Comments New Patient Left hip pain * Consultation/Treatment (Routine) - Closed Specialty Diagnoses / Procedures Referred By Contac t Referred To Contact ORTHOPAEDIC SURGERY / ORTHOPAEDICS Diagnoses Left hip pain Brenda Hopper MD 3 [facility] [address] [place] [address] Phone: tel: fax: Madeline Bucio MD Phone: tel: fax: Referral ID Status Reason Start Date Expiration Date Visits Re quested Visits Authorized [id number] Closed 11/22/2018 11/23/2019 100 100 Encounter Details Date Type Department Care Team (Latest Contact Info) Description 12/07/2018 2:00 PM CDT Office Visit [facility] Multispecialty Care - [address] [place] [address] Madeline Bucio MD [address] [place] [phone] New Patient (Left hip pain) Social History [...] with her activities of daily living. She works[employer]. 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 [...] file Gets together: Not on file Attends sikhism service: Not on file Active member of [...] thigh documented in this encounter Care Teams Transplant Immunologist Relationship Specialty Start Date End Date Brenda Hopper MD [address] [address] PCP - General FAMILY PRACTICE 10/07/18 documented as of this encounter
--- OUTSIDE RECORDS SUMMARY | 2024-07-26 08:51 | XMS_ITS | Encounter Summary ---
Author Organization [facility] Address [address] [place] [address]. [place] [address] [place] [address] Care Team Providers Care Reimbursement Representative Name Role Phone Brenda Hopper MD Primary Care Provider [phone] Reason for Visit * Reason Onset Date Comments Surgery Questions 05/23/2019 Encounter Details Date Type Department Care Team (Late st Contact Info) Description 05/23/2019 Telephone [facility] Multispecialty Care - [facility] [address] [facility], [address] [place] [phone] Kemar Mckenna MD [address] [place] [address] Surgery Questions Social History Tobacco Use Types [...] does need to be off the patches. 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 She has a question about the patch. Patient call back number [phone]. ANICAL FIELD ENGINEER documented in this encounter Plan of Treatment Not on file documented as of this encounter Visit Diagnoses Not on filedocumented in this encounter Care Teams Reimbursement Representative Relationship Specialty Start Date End Date Brenda Hopper MD [address] [address] PCP - General FAMILY PRACTICE 10/07/18 documented as of this encounter
--- OUTSIDE RECORDS SUMMARY | 2024-07-26 08:52 | XMS_ITS | Encounter Summary ---
Author Organization [facility] Address [address] [place] [address]. [place] [address] [place] [address] Care Team Providers Care Louver Door Assembler Name Role Phone Joseph Purcell MD Primary Care Provider Unavailable Encounter Details Date Type Department Care Team (Late st Contact Info) Description 04/05/2007 Abstract [facility] CON[facility] [address] [place] [address] [place] [address] [place] [phone] Social History Tobacco Use Types Packs/Day [...] on filedocumented in this encounter Care Teams Louver Door Assembler Relationship Specialty Start Date End Date Joseph Purcell MD PCP - General 04/12/17 documented as of this encounter
--- OUTSIDE RECORDS SUMMARY | 2024-07-26 08:52 | XMS_ITS | Encounter Summary ---
Author Organization [facility] Address [address] [place] [address]. [place] [address] [place] [address] Care Team Providers Care Paper Testing Supervisor Name Role Phone Joseph Purcell MD Primary Care Provider Unavailable Reason for Visit * Reason Comments Acid Reflux Encounter Details Date Type Department Care Team (Late st Contact Info) Description 08/30/2017 9:46 PM CERTIFIED NURSING ATTENDANT - 08/31/2017 2:37 AM CERTIFIED NURSING ATTENDANT Emergency [facility] [place] [address] Fransisca De León MD [address] [place] [address] Power Cedeno MD [address] [place] [address] Acid Reflux Discharge Disposition: Home or Self [...] Comments Blood Pressure 114/67 08/31/2017 2:16 AM CERTIFIED NURSING ATTENDANT Pulse 73 08/31/2017 2:16 AM CERTIFIED NURSING ATTENDANT Temperature 36.6 ??C (97.8 ??F) 08/30/2017 9:40 PM CS T Respiratory Rate 18 08/31/2017 2:16 AM CERTIFIED NURSING ATTENDANT Oxygen Saturation 93% 08/31/2017 2:16 AM CERTIFIED NURSING ATTENDANT Inhaled Oxygen Concentration - - Weight 72.9 kg (160 lb 11.5 oz) 08/30/2017 9:40 PM CERTIFIED NURSING ATTENDANT Height 157.5 cm (5' 2) 08/30/2017 9:40 PM CERTIFIED NURSING ATTENDANT Body Mass Index 29.4 08/30/2017 9:40 PM CERTIFIED NURSING ATTENDANT documented in this encounter Discharge Instructions * Discharge Instructions* Fransisca De León MD - 08/31/2017 1:51 AM CERTIFIED NURSING ATTENDANT Images from the original note were not [...] right for you. Copyright Copyright ?? 2017 [employer] and its affiliates and/or licensors. All rights reserved. Acid Reflux (Gastroesophageal Reflux Disease) in Adults The Basics Written by the doctors and editors at [facility] What is acid reflux???--??Acid reflux is when [...] process is complete. This topic retrieved from [employer] on: Jan 19, 2017. Topic 67358 Version 9.0 Release: 25.3 - C25.159 ?2017??[employer]??All rights reserved. figure 1: Upper digestive tract The upper digestive tract includes the esophagus??(the tube than connects the mouth to the stomach), the stomach, and the duodenum (the first part of the small intestine). Graphic 35416 Version 5.0 table 1: Medicines used to [...] name: Dexilant) Rabeprazole (brand name: AcipHex) Graphic 98909 Version 10.0 Consumer Information Use and Disclaimer [...] that is right for you.The use of [employer] content is governed by the [employer] Terms of Use. ??2017 [employer] All rights reserved. Copyright ?2017??[employer]??All rights reserved. 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: john : 1960 Requested By: FRANSISCA DE LEÓN Order Number: [id number] Reading MD: Measurements Intervals [place] Rate: 71 P: 54 ME: 130 QRS: 53 QRSD: 85 T: 59 [...] go Fransisca De León MD 08/31 0148 [facility] Number of Diagnoses or Management Options Diagnosis management comments: Suspect acid reflux nothing to suggest acute coronary syndrome acuteabdomen check lab Clinical Impression Acid reflux disease (Primary) Leukocytosis, unspecified type Disposition: Discharge Fransisca De León MD 08/31/17 0152 IFIED NURSING ATTENDANT * Tiffanie Jiménez RN - 08/30/2017 9:41 PM CST I have had acid reflux all day long, I am not coughing up anything, I can't lay down without it burning. IFIED NURSING ATTENDANT documented in this encounter Plan of Treatment Not on file documented as of this encounter Procedures Procedure Name Priority Date/Time Associated Diagnosis Comments ECG 12-LEAD STAT 08/31/2017 8:02 AM CERTIFIED NURSING ATTENDANT COMPREHENSIVE METABOLIC PANEL STAT 08/30/2017 9:52 PM CERTIFIED NURSING ATTENDANT CBC W/DIFF AUTOMATED STAT 08/30/2017 9:52 PM CERTIFIED NURSING ATTENDANT LIPASE STAT 08/30/2017 9:52 PM CERTIFIED NURSING ATTENDANT documented in this encounter Results * ECG 12 lead (08/31/2017 8:02 AM CERTIFIED NURSING ATTENDANT) 08/31/2017 8:02 AM CERTIFIED NURSING ATTENDANT Narrative [facility] - 08/31/2017 8:02 AM CERTIFIED NURSING ATTENDANT ?[facility] ? [address] [place] ? Test Date: ?2017-08-30 Pat Name: ? BRISA MARIFER ? Department: ?? 41 ? Room: ? EXAM13 Gender: ? Female ? Charcoal Kiln Burner: ?? lp : ?1960 ? Requested By: FRANSISCA DAKOTAHPOONAMGABRIEL Order Number: [id number] ? Reading MD: ?? Law Renee ? Measurements Intervals ?[place] ? Rate: ? 71 ? P: ?54 ME: ? 130 ?QRS: ?53 QRSD: ? 85 ? T: ?59 QT: ? 395 ? QTc: ?432 ? Interpretive Statements SINUS RHYTHM POSSIBLE LEFT ATRIAL ENLARGEMENT No previous ECG available for comparison Dr. Fransisca De León M.D. 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 Fransisca De León M.D. Other ischemic changes, not STEMI Preliminary EKG interpretation by ED Physician CRITICAL ALERT ISSUED ON 08-30-2017 21:51:51 IFIED NURSING ATTENDANT Fransisca De León MD ECG ORDERABLES Final Result Performing Organization Address City/[facility]/ZIP Co de Phone Number [facility] * LIPASE (08/30/2017 9:52 PM CERTIFIED NURSING ATTENDANT) LIPASE 194 73 - 393 UNITS/L 08/30/2017 10:30 PM CERTIFIED NURSING ATTENDANT [facility] 08/30/2017 9:52 PM CERTIFIED NURSING ATTENDANT Fransisca De León MD LABORATORY Final Result Performing Organization Address City/[facility]/ZIP Co de Phone Number [facility] [address] [place] [address], [place] [phone] * (ABNORMAL) COMPREHENSIVE METABOLIC PANEL (08/30/2017 9:52 PM [facility]) [facility] GLUCOSE 86 70 - 99 MG/DL 08/30/2017 10:30 PM [facility] BUN 15 7 - 18 MG/DL 08/30/2017 10:30 PM [facility] CREATININE S/P/B 0.71 0.55 - 1.02 MG/DL 08/30/2017 10:30 PM [facility] SODIUM S/P/B 141 136 - 145 MMOL/L 08/30/2017 10:30 PM [facility] POTASSIUM S/P/B 4.0 3.5 - 5.1 MMOL/L 08/30/2017 10:30 PM [facility] CHLORIDE S/P/B 109(H) 100 - 108 MMOL/L 08/30/2017 10:30 PM [facility] CO2 25.0 21 - 32 MMOL/L 08/30/2017 10:30 PM [facility] CALCIUM S/P/B 8.3(L) 8.5 - 10.1 MG/DL 08/30/2017 10:30 PM [facility] BILIRUBIN TOTAL S/P/B 0.1(L) 0.2 - 1.2 MG/DL 08/30/2017 10:30 PM [facility] TOTAL PROTEIN S/P/B 7.1 6.4 - 8.2 G/DL 08/30/2017 10:30 PM [facility] ALBUMIN S/P/B 3.8 3.4 - 5.0 G/DL 08/30/2017 10:30 PM [facility] AST 23 15 - 37 U/L 08/30/2017 10:30 PM [facility] ALT 24 14 - 55 U/L 08/30/2017 10:30 PM [facility] ALKALINE PHOSPHATASE S/P/B 92 50 - 136 U/L 08/30/2017 10:30 PM [facility] ANION GAP 11.0 8 - 20 MMOL/L 08/30/2017 10:30 PM [facility] BUN CREATININE RATIO 21.1 6 - 26 08/30/2017 10:30 PM [facility] A/G RATIO 1.2 1.0 - 2.0 RATIO 08/30/2017 10:30 PM [facility] EGFR NON-AFR. AMER. >60 >60 ML/MIN/1.7 3 M2 08/30/2017 10:30 PM [facility] EGFR AFR. AMER. >60 >60 ML/MIN/1.7 3 M2 08/30/2017 10:30 PM [facility] Comment: NOTE: eGFR is not calculated for patients <18 years of age. This is an estimated GFR (CKD EPI) and should not be used for calculating drug doses. 08/30/2017 9:52 PM CERTIFIED NURSING ATTENDANT Fransisca De León MD LABORATORY Final Result [facility] [address] [place] [address], * (ABNORMAL) CBC W/DIFF AUTOMATED (08/30/2017 9:52 PM CERTIFIED NURSING ATTENDANT) WBC 12.2(H) 4.8 - 10.8 x10'3/uL 08/30/2017 10:08 PM [facility] RBC 4.70 4.20 - 5.40 x10'6/uL 08/30/2017 10:08 PM [facility] HGB 13.8 12.0 - 16.0 G/DL 08/30/2017 10:08 PM [facility] HCT 41.8 38.0 - 48.0 % 08/30/2017 10:08 PM [facility] MCV 88.9 81.0 - 99.0 FL 08/30/2017 10:08 PM [facility] MCH 29.4 27.0 - 31.0 PG 08/30/2017 10:08 PM [facility] MCHC 33.0 32.0 - 36.0 G/DL 08/30/2017 10:08 PM [facility] RDW 12.4 11.5 - 14.5 % 08/30/2017 10:08 PM [facility] PLT 301 130 - 400 x10'3/uL 08/30/2017 10:08 PM [facility] MPV 9.6 9.3 - 12.2 FL 08/30/2017 10:08 PM [facility] NEUTROPHILS % 59.3 43.0 - 65.0 % 08/30/2017 10:08 PM [facility] LYMPHOCYTES % 26.7 20.0 - 46.0 % 08/30/2017 10:08 PM [facility] MONOCYTES % 9.4 5.0 - 12.0 % 08/30/2017 10:08 PM [facility] EOSINOPHILS 3.8(H) 1.0 - 3.0 % 08/30/2017 10:08 PM [facility] BASOPHILS 0.5 0.0 - 1.0 % 08/30/2017 10:08 PM [facility] IMMATURE GRANS % 0.3 0.0 - 1.0 % 08/30/2017 10:08 PM [facility] 08/30/2017 9:52 PM CERTIFIED NURSING ATTENDANT Fransisca De León MD LABORATORY Final Result [facility] [address] [place] [address], documented in this encounter Visit Diagnoses Diagnosis [...] over 2 minutes Given 08/31/2017 12:48 AM CERTIFIED NURSING ATTENDANT 40 mg ondansetron (ZOFRAN) injection 4 mg 4 mg, Intravenous, Every 1 hour PRN, Nausea, 2 doses, Starting on Wed08/31/17 at 0033, Until Tu08/31/17 at 0437, IV push over 2-5 minutes. Given 08/31/2017 12:48 AM CERTIFIED NURSING ATTENDANT 4 mg sodium chloride 0.9% bolus infusion SOLN 1,000 mL 1,000 mL, Intravenous, Administer over 15 Minutes, Once, 1 dose, On Wed08/31/17 at 0100 New Bag 08/31/2017 12:48 AM CERTIFIED NURSING ATTENDANT 1,000 mLs documented in this encounter Active and Recently Administered Medications Times are shown in CERTIFIED NURSING ATTENDANT. Scheduled Medication Order 08/29/2017 08/30/2017 08/31/2017 famotidine [...] RN) documented in this encounter Care Teams Paper Testing Supervisor Relationship Specialty Start Date End Date Md Generic Conversion, PCP - General 04/12/17 documented as of this encounter
--- OUTSIDE RECORDS SUMMARY | 2024-07-26 08:52 | XMS_ITS | Encounter Summary ---
Author Organization [facility] Address [address] [place] [address]. [place], [place] [address] [place] [address] Care Team Providers Care Professional Benefits Sales Consultant Name Role Phone Joseph Romero MD Primary Care Provider Unavailable Encounter Details Date Type Department Care Team (Late st Contact Info) Description 04/12/2017 Emergency [facility] [place] [address] Casey Sheridan MD Social History Tobacco Use [...] URINE CLEAN CATCH 04/12/2017 4:08 PM CDT [facility] SPECIAL REQUESTS NO SPECIAL REQUEST 04/12/2017 4:08 PM CDT [facility] CULTURE RESULT >100,000 COL/ML BETA STREPTOCOCCUS GROUP B SUSCEPTIBILTY NOT ROUTINELY PERFORMED. SAVING ISOLATE FOR 5 DAYS. CONTACT MICROBIOLOGY DEPARTMENT IF FURTHER WORKUP IS INDICATED. 04/14/2017 11:13 AM CDT [facility] CULTURE RESULT POLYMICROBIAL GROWTH CONSISTENT WITH NORMAL GENITAL TIMMY. ?? SUSCEPTIBILITIES NOT ROUTINELY PERFORMED. 04/14/2017 11:13 AM CDT [facility] URINE SPECIMEN OBTAINED BY CLEAN CATCH PROCEDURE / Unknown 04/12/2017 3:31 PM CDT 04/12/2017 4:02 PM CDT us Generic Conversion Md ROMERO MICROBIOLOGY - GENERAL ORDERABLES Final Result [facility] [place] [address], [place] [phone] * (ABNORMAL) URINALYSIS WI REFLEX TO CULTURE (04/12/2017 3:31 PM CDT) SPECIMEN TYPE URINE CLEAN CATCH 04/12/2017 3:27 PM CDT [facility] COLOR (U) YELLOW 04/12/2017 3:59 PM CDT [facility] TRANSPARENCY CLOUDY 04/12/2017 3:59 PM CDT [facility] SPECIFIC GRAVITY (U) 1.014 1.001 - 1.030 04/12/2017 3:59 PM CDT [facility] U PH 6.0 5.0 - 9.0 04/12/2017 3:59 PM CDT [facility] LEUKOCYTES (U) LARGE(A) NEGATIVE 04/12/2017 3:59 PM CDT [facility] NITRITES NEGATIVE NEGATIVE 04/12/2017 3:59 PM CDT [facility] PROTEIN (U) NEGATIVE <30 MG/DL 04/12/2017 3:59 PM CDT [facility] URINE GLUCOSE NEGATIVE NEGATIVE MG/DL 04/12/2017 3:59 PM CDT [facility] KETONES MG/DL (U) NEGATIVE NEGATIVE MG/DL 04/12/2017 3:59 PM CDT [facility] UROBILINOGEN NEGATIVE NEGATIVE MG/DL 04/12/2017 3:59 PM CDT [facility] BILIRUBIN (U) NEGATIVE NEGATIVE MG/DL 04/12/2017 3:59 PM CDT [facility] BLOOD (U) NEGATIVE NEGATIVE 04/12/2017 3:59 PM CDT [facility] CULTURE & SENSITIVITY INDICATED? SPECIMEN SETUP FOR CULTURE 04/12/2017 3:59 PM CDT [facility] SQUAMOUS EPITHELIALS MANY /LPF 04/12/2017 4:00 PM CDT [facility] RENAL EPI RARE /HPF 04/12/2017 4:00 PM CDT [facility] MUCUS RARE /LPF 04/12/2017 4:00 PM CDT [facility] WBC/HPF 3 <6 /HPF 04/12/2017 4:00 PM CDT [facility] RBC/HPF 2 <6 /HPF 04/12/2017 4:00 PM CDT [facility] 04/12/2017 3:31 PM CDT 04/12/2017 3:37 PM CDT us Generic Conversion Md ROMERO URINE ORDERABLES Final Result [facility] [place] [address], [place] [phone] documented in this encounter Visit Diagnoses Diagnosis Acute bronchitis documented in this encounter Care Teams Professional Benefits Sales Consultant Relationship Specialty Start Date End Date Joseph Romero MD PCP - General 04/12/17 documented as of this encounter
--- OUTSIDE RECORDS SUMMARY | 2024-07-26 08:52 | XMS_ITS | Encounter Summary ---
Author Organization [facility] Address [address] [place] [address]. [place], [place] [address] [place] [address] Care Team Providers Care Teacher Of Gifted Students Name Role Phone Joseph Purcell MD Primary Care Provider Unavailable Encounter Details Date Type Department Care Team (Late st Contact Info) Description 02/01/1993 Abstract [place] [address] Joseph Purcell MD Social History Tobacco Use [...] on filedocumented in this encounter Care Teams Teacher Of Gifted Students Relationship Specialty Start Date End Date Joseph Purcell MD PCP - General 04/12/17 documented as of this encounter
--- OUTSIDE RECORDS SUMMARY | 2024-07-26 08:52 | XMS_ITS | Encounter Summary ---
Author Organization [facility] Address [address] [place] [address]. [place] [address] [place] [address] Care Team Providers Care Senior Recruitment Consultant Name Role Phone Joseph Purcell MD Primary Care Provider Unavailable Encounter Details Date Type Department Care Team (Late st Contact Info) Description 04/12/[address] [facility] [address] [place] [address] [place] [address] [place] [phone] Social History Tobacco Use Types Packs/Day [...] on filedocumented in this encounter Care Teams Senior Recruitment Consultant Relationship Specialty Start Date End Date Joseph Purcell MD PCP - General 04/12/17 documented as of this encounter
--- OUTSIDE RECORDS SUMMARY | 2024-07-26 08:52 | XMS_ITS | Encounter Summary ---
Author Organization [facility] Address [address] [place] [address]. [place], [place] [address] [place] [address] Care Team Providers Care Soaking Pits Supervisor Name Role Phone None, Provider Primary Care Provider Unavaila ble Reason for Visit * Reason Comments Leg Pain Encounter Details Date Type Department Care Team (Late st Contact Info) Description 08/10/2018 5:20 PM REED OR WIND INSTRUMENT REPAIRER - 08/10/2018 6:18 PM REED OR WIND INSTRUMENT REPAIRER Emergency [facility] [place] [address] Gustavo Goodman PA [address] [place] [address] Leg Pain Discharge Disposition: Home or Self [...] Comments Blood Pressure 107/83 08/10/2018 3:22 PM REED OR WIND INSTRUMENT REPAIRER Pulse 77 08/10/2018 3:22 PM REED OR WIND INSTRUMENT REPAIRER Temperature 36.7 ??C (98.1 ??F) 08/10/2018 3:22 PM CS T Respiratory Rate 18 08/10/2018 3:22 PM REED OR WIND INSTRUMENT REPAIRER Oxygen Saturation 95% 08/10/2018 3:22 PM REED OR WIND INSTRUMENT REPAIRER Inhaled Oxygen Concentration - - Weight 72.5 kg (159 lb 12.8 oz) 08/10/2018 3:21 PM REED OR WIND INSTRUMENT REPAIRER Height 157.5 cm (5' 2) 08/10/2018 3:21 PM REED OR WIND INSTRUMENT REPAIRER Body Mass Index 29.23 08/10/2018 3:21 PM REED OR WIND INSTRUMENT REPAIRER documented in this encounter Discharge Instructions * Attachments The following attachments cannot be sent through Care Everywhere. * Degenerative Disc Disease Discharge Instructions (Emirati) documented in this encounter Medications at Time [...] HIP LT 2V Final Result by User, [id number] (08/10 161) Examination: Left hip. Exam time: [...] Disposition: Discharge Follow-Up: Lizy Llanes MD Three [facility] [address] [place] [id number] Schedule an appointment as soon as possible for a visit in 1 week As needed TINY Gr 08/10/2018 TINY Gr 08/10/18 1803 Cosigned by Severiano Goldstein MD at 08/10/2018 10:25 PM REED OR WIND INSTRUMENT REPAIRER OR WIND INSTRUMENT REPAIRER OR WIND INSTRUMENT REPAIRER * TINY Le-C - 08/10/2018 3:33 PM CST [facility] [place] [place] EMERGENCY DEPARTMENT ENCOUNTER Medical Screening Examination [...] Alli Guajardo DO at 08/11/2018 3:16 PM REED OR WIND INSTRUMENT REPAIRER OR WIND INSTRUMENT REPAIRER OR WIND INSTRUMENT REPAIRER * Nader Gaming RN - 08/10/2018 3:24 PM CST PT came into ED with c/o left leg pain. PT has a history of pain, and recently had an MRI. PT reports pain is worsening. PT vitals stable. NADER GAMING RN OR WIND INSTRUMENT REPAIRER documented in this encounter Plan of Treatment Not on file documented as of this encounter Procedures Procedure Name Priority Date/Time Associated Diagnosis Comments XR HIP LT 2V STAT 08/10/2018 4:12 PM REED OR WIND INSTRUMENT REPAIRER documented in this encounter Results * XR HIP LT 2V (08/10/2018 4:12 PM REED OR WIND INSTRUMENT REPAIRER) Anatomical Region Laterality Modality Hip Radiographic Ewa ging 08/10/2018 4:16 PM REED OR WIND INSTRUMENT REPAIRER Impressions 08/10/2018 4:18 PM REED OR WIND INSTRUMENT REPAIRER IMPRESSION: No acute findings. Degenerative changes as described. Narrative 08/10/2018 4:18 PM REED OR WIND INSTRUMENT REPAIRER Examination: Left hip. Exam time: 1605 hours. [...] thigh documented in this encounter Care Teams Soaking Pits Supervisor Relationship Specialty Start Date End Date None, ProviderMD PCP - General 08/10/18 10/06/18 documented as of this encounter
--- OUTSIDE RECORDS SUMMARY | 2024-07-26 08:54 | XMS_ITS | Clinical Summary ---
Author Organization [facility] Address [address] [place] [address] Care Team Providers Care Fish Bailer Name Role Phone Unavailable Primary Care Provider Unavailabl e Social History Tobacco Use Types Packs/Day Years Used Date Smoking Tobacco: Never Assessed Comments Unknown Sex and Gender Information Value Date Recorded Sex Assigned at Not on file Legal Sex Female 2:37 PM SEASONAL GREENERY BUNDLER Gender Identity Not on file Sexual Orientation [...]
--- OUTSIDE RECORDS SUMMARY | 2024-07-26 08:54 | XMS_ITS | Encounter Summary ---
Author Organization [employer] Address [address] [facility] Attn: Epic Prelude ADT YAMEL LARSON [phone] Care Team Providers Care Caustic Preparer Name Role Phone Unavailable Primary Care Provider [...]
--- OUTSIDE RECORDS SUMMARY | 2024-07-26 08:54 | XMS_ITS | Continuity of Care Document ---
Author Organization [facility] Address [address] [place] [address] Phone Care Team Providers Care Tractor Trailer Driver Name Role Phone Yaya Villatoro MD Unavailable [...] route every day 1 MCG - Active levothyroxine 112 mcg tablet take 1 tablet by oral route every day 112 MCG - Active famotidine 20 mg tablet take 1 tablet by oral route 2 times every day as needed - Active bupropion HCl 100 mg tablet take 2 tablet by oral route every day 200 MG - Active paroxetine 40 mg tablet take 1 tablet by oral route every day 40 MG - Active trazodone 50 mg tablet take 1 tablet by oral route every day at bedtime 50 MG - Active Procedures Procedure Date CBC, INC PLATELETS AND DIFFERENTIAL COMPREHEN METABOLIC PANEL [facility] FREE T4 (FT4) HEMOGLOBIN A1C HGA1C, GLYCO PARATHYROID HORMONE (PTH) THYROID STIMULATION HORMONE(TSH) 2023 VITAMIN D, 25-HYDROXY ROUTINE VENIPUNCTURE OFFICE [id number] BODY MASS INDEX DOCD SYST BP LT 130 MM HG DIAST BP < 80 MM HG PNEUMOVAX ADM MEDICARE Pneumococcal Conjugate Vaccine (PCV20) CBC, INC PLATELETS AND DIFFERENTIAL COMPREHEN METABOLIC PANEL [facility] 4 HEMOGLOBIN A1C HGA1C, GLYCO ROUTINE VENIPUNCTURE PHOSPHORUS (PO4), INORGANIC (S) 024 VITAMIN D, 25-HYDROXY OFFICE [id number] BODY MASS INDEX DOCD SYST BP LT 130 MM HG DIAST BP < 80 MM HG Clin depression screen doc OFFICE [id number] BODY MASS [facility]DEX [facility] SYST BP GE 130 - 139MM HG DIAST BP 80-89 MM HG Admin influenza virus vac FLU VAC NO PRSV 4 CHRIS, 0.5mL DOSAGE CBC, INC PLATELETS AND DIFFERENTIAL COMPREHEN METABOLIC PANEL CMP Sep-05-202 3 HEMOGLOBIN A1C HGA1C, GLYCO LIPID PANEL MICROALBUMIN, QN (URINE) CREATININE, (U-R) THYROID STIMULATION HORMONE(TSH) 2022 ROUTINE VENIPUNCTURE URINALYSIS, DIPSTICK (UA) - Office Lab S OFFICE [id number] BODY MASS INDEX DOCD SYST BP GE 130 - 139MM HG DIAST BP 80-89 MM HG Clin depression screen doc Advance Directives Directive Yes / No Effective Date File Name No Information Encounters Encounter Description Practice Location Reason(s) For Visit Diagnoses Date Provider Providers Copied on Encounter [facility], [address], [place], [place], [address] , tel: [phone] [place] No Information 5 Foersterling Yaya. [address] [place] [address], [place] [address], [place], [place], [address], . tel:[phone] [facility], [address], [place], [place], [address] , tel: [phone] [place] Dysphagia, oropharyngeal phase 5 Foersterling Yaya. [address] [place] [address], [place] [address], [place], [place], [address], . tel:[phone] [facility], [address], [place], [place], [address] , [place] tel: [phone] [place] No Information 5 Foersterling Yaya. [address] [place] [address], [facility] [address], [place], [place], [address], [place]. tel:[phone] [facility], [address], [place], [place], [address] , tel: [phone] [place] No Information 4 Foersterling Yaya. [address] [place] [address], [place] [address], [place], [place], [address], . tel:[phone] [facility], [address], [place], [place], [address] , tel: [phone] [place] Thyroid cancer 4 Foersterling Yaya. [address], [address], [place], [place], [address], . tel:[phone] [facility], [address], [place], [place], [address] , tel: [phone] [place] Malignant neoplasm of thyroid glandSpecific developmental disorder of motor function 4 Foersterling Yaya. [address], [address], [place], [place], [address], [place]. tel:[phone] [facility], [address], [place], [place], [address] , tel: [phone] [place] No Information 4 Foersterling Yaya. [address], [facility] [address], [place], [place], [address], [place]. tel:[phone] [facility], [address], [place], [place], [address] , tel: [phone] [place] No Information 4 Foersterling Yaya. [address], [address], [place], [place], [address], [place]. tel:[phone] OFFICE [id number] [facility], [address], [place], [place], [address] , tel: [phone] [place] 3 month follow up. (chief complaint) Secondary malignant neoplasm of boneGastroesopha geal reflux disease, unspecified whether esophagitis presentOveractiv e bladderMajor depressive disorder, recurrent, moderateBody mass index [BMI] 23.0-23.9, adultPrediabetes Postprocedural hypothyroidismLu mbar radiculopathyHyp erlipidemia, unspecified hyperlipidemia typeMalignant neoplasm of thyroid glandOsteoarthri tis of left hip, unspecified osteoarthritis typeOther hypoparathyroidi smTobacco useMild protein-calorie malnutrition 4 Foersterling Yaya. [address], [address], [place], [place], [address], [place]. tel:[phone] Referring Provider: Yaya dominguez, [address] [place] [address] [address], [place], [address] . tel:[phone] [facility], [address], [place], [place], [address] , [place] tel:[phone] [place] Malignant neoplasm of thyroid gland 4 Kailaterwalter Javier. [address] [place] [address], [address], [place], [place], [address], [place]. tel:[phone] [facility], [address], [place], [place], [address] , tel:[phone] [place] Skin neoplasmSecondar y malignant neoplasm of boneMalignant neoplasm of thyroid gland 4 Kailavicky Dunlaptt. [address] [place] [address], [facility] [address], [place], [place], [address], [place]. tel:[phone] [facility], [address], [place], [place], [address] , [place] tel:[phone] [place] No Information 4 Shauna Javier. [address] [place] [address], [facility] [address], [place], [place], [address], [place]. tel:[phone] OFFICE [id number] [facility], [address], [place], [place], [address] , tel: [phone] [place] chronic conditions . (chief complaint) Malignant neoplasm of thyroid glandSecondary malignant neoplasm of bonePostprocedur al hypothyroidismBo dy mass index [BMI] 26.0-26.9, adultOther hypoparathyroidi smMajor depressive disorder, recurrent, moderateLumbar radiculopathyOst eoarthritis of left hip, unspecified osteoarthritis typeHyperlipidem ia, unspecified hyperlipidemia typeGastroesopha geal reflux disease, unspecified whether esophagitis presentOveractiv e bladderOverweigh t (BMI 25.0-29.9)Predia betesTobacco useEncounter for immunization 4 Pamelawalter Yaya. [address] [place] [address], [facility] [address], [place], [place], [address], [place]. tel:[phone] Referring Provider: Yaya dominguez, [address] [place] [address] [address], [place], [address] . tel:[phone] [facility], [address], [place], [place], [address] , [place] tel:[phone] [place] Malignant neoplasm of thyroid gland 4 Folynne Javier. [address] [place] [address], [address], [place], [place], [address], [place]. tel:[phone] OFFICE [id number], [address], [place], [place], [address] , [place] tel:[phone] [place] chronic conditions . (chief complaint) Body mass index [BMI] 27.0-27.9, adultMalignant neoplasm of thyroid glandSecondary malignant neoplasm of bonePostprocedur al hypothyroidismMa baudilio depressive disorder, recurrent, moderateLumbar radiculopathyOst eoarthritis of left hip, unspecified osteoarthritis typeHyperlipidem ia, unspecified hyperlipidemia typeGastroesopha geal reflux disease, unspecified whether esophagitis presentOveractiv e bladderOverweigh t (BMI 25.0-29.9)Other hypoparathyroidi sm 3 Shauna Javier. [address] [place] [address], [facility] [address], [place], [place], [address], [place]. tel:[phone] Referring Provider: Yaya dominguez, [address] [place] [address] [address], [place], [address] . tel:[phone] [facility], [address], [place], [place], [address] , [place] tel:[phone] [place] Left hip painPostprocedur al hypothyroidism 3 Shauna Javier. [address] [place] [address], [facility] [address], [place], [place], [address], [place]. tel:[phone] OFFICE [id number]-MK [facility], [address], [place], [place], [address] , [place] tel:[phone] [place] new patient to establish care. (chief complaint) Body mass index [BMI] 25.0-25.9, adultHyperlipide niru, unspecified hyperlipidemia typePostprocedur al hypothyroidismOv eractive bladderEncounter for screening for diabetes mellitusMajor depressive disorder, recurrent, moderateMalignan t neoplasm of thyroid glandSecondary malignant neoplasm of boneGastroesopha geal reflux disease, unspecified whether esophagitis presentOther hypoparathyroidi smLumbar radiculopathyOst eoarthritis of left hip, unspecified osteoarthritis typeEncounter for immunization 3 Shauna Javier. [address], [address], [place], [place], [address], [place]. tel:[phone] Referring Provider: Yaya dominguez, [address] [place] [address] [address], [place], [address] . tel:[phone] Family History Family Member Type Diagnosis Age [...] Registry Payers Payer name Insurance type Covered libertarian ID Magali méndez(s) [employer] [id number] MEDICAID [facility] [id number] [facility] [id number] [facility] [id number] [facility] [employer] [id number] Social History Type Description Quantity Date Captured [...] ordered Referral Referred To: Remi Beckett [address] [place], [place], [phone] Ordered: Referrals: Internal Medicine. Remi Beckett. Evaluation/diagnostic/treatment - Level 3 ordered Referral Ordered: Marcio Mcintosh -Radiotherapy (related to Malignant neoplasm of thyroid gland) ordered Referral Ordered: Sandra Limon -Neurology (related to Specific developmental disorder of motor function) ordered Referral Referred To: Sandra Limon [address] [place], [phone] Ordered: Referrals: Neurology. Sandra Limon. Evaluation/diagnostic/treatment - Level 3 ordered Referral Referred To: Neri Delgado [address] [place], [place], [phone] Ordered: Referrals: Otolaryngology. Neri Delgado. Evaluation/diagnostic/treatment - Level 3 ordered Referral Referred To: Marcio Mcintosh [address] [place], [place], [phone] Ordered: Referrals: Radiotherapy. Marcio Mcintosh. Evaluation/diagnostic/treatment - Level 3 Appointment date/timeframe: 11/24/2023 ordered Referral Referred To: Dr. Neri Delgado Ordered: Referrals: Otolaryngology. Dr. Neri Delgado. Evaluation/diagnostic/treatment - Level 3 Appointment date/timeframe: 08/06/2023 ordered Referral Ordered: SCREENING MAMMOGRAM (CAD) ordered Referral Referred To: Cesar Brooks MD [address] [place], [phone] Ordered: Referrals: Orthopedic Surgery. Cesar Brooks MD. Evaluation/diagnostic/treatment - Level 3 ordered Referral Referred To: Yosi Bustamante MD [address]
[place], [phone] Ordered: Referrals: Endocrinology, Diabetes and Metabolism. Yosi [...] PET scan has been ordered by her garage supervisor due to rising thyroglobulin level. Hypothyroidism: monitored [...] pantoprazole. Her GI is Dr. Bennett in [place], [place].Overactive bladder and incontinence - she reports [...] Osteoarthritis of left hip, unspecified osteoarthritis type Treated by endocrino logy. She is [...] Related to Malignant neoplasm of thyroid gland Continue atorvastatin. Related t o Hyperlipidemia, unspecified hyperlipidemia type stable with gabapent in. Patient follows up with pain management - Dr. Echevarria. Related to Lumbar radiculopathy treated by endocrino logy - Dr. Bustamante. Continue levothyroxine as directed by Dr. Bustamante. Will check TSH and free T4 and forward results to him. Related to Postprocedural hypothyroidism Stable with oxybutynin. Related to Overactive bladder managed by psychiatr ist - Dr. Deng. Mood is stable with current treatment including paroxetine, bupropion, and trazodone. She denies SI or HI. She is scheduled to meet with behavioral therapist. Continue to follow up with psychiatrist as planned. Related to Major depressive disorder, recurrent, moderate Last A1c was improve d, down to 5.6% on 09/16/23. She is asymptomatic. Continue working on diet and exercise. Recheck A1c today. Related to Prediabetes Osseous metastasis t o the C5 and [...] Related to Secondary malignant neoplasm of bone Controlled with pant oprazole. Patient occasionally takes famotidine if needed. Related to Gastroesophageal reflux disease, unspecified whether esophagitis present Dietary management e ducation, guidance, and counseling [...] Stable with oxybutynin. Related to Overactive bladder Controlled with pant oprazole. Patient occasionally takes famotidine if needed. Related to Gastroesophageal reflux disease, unspecified whether esophagitis present BMI today of 27.07. Dietary counseling provided. Related to Overweight (BMI 25.0-29.9) Continue atorvastatin. Related t o Hyperlipidemia, unspecified hyperlipidemia type stable with gabapent in. Patient follows up with pain management - Dr. Echevarria. Related to Lumbar radiculopathy managed by psychiatr ist - Dr. Deng. [...] Osteoarthritis of left hip, unspecified osteoarthritis type Treated by endocrino logy. She is asymptomatic. Continue calcitriol. Calcium level normal on most recent lab work. 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 MRI ordered by radiation oncologist and PET scan has been ordered by garage supervisor due to her rising thyroglobulin level. Continue to follow up with endocrinology, radiation oncology, ENT and neurosurgery as planned. Related to Malignant neoplasm of thyroid gland monitored and treate d by endocrinology - Dr. Bustamante. Continue levothyroxine as directed by Dr. Bustamante. Related to Postprocedural hypothyroidism Osseous metastasis t o the C5 and [...] index (BMI) 26.0-26.9, adult Treated by endocrino lograiner. She is asymptomatic. Continue calcitriol. Calcium level [...] density scan. Related to Overweight (BMI 25.0-29.9) Stable with oxybutynin. Related to Overactive bladder Continue atorvastatin. Related t o Hyperlipidemia, unspecified hyperlipidemia type Controlled with pant oprazole. Patient occasionally takes famotidine if needed. Related to Gastroesophageal reflux disease, unspecified whether esophagitis present Patient symptoms are stable with gabapentin. Patient reports that she follows up with pain management - Dr. Echevarria. Related to Lumbar radiculopathy Chronic. Patient fol lows up with orthopedics and pain management. Patient ambulates with a cane. Continue working on home exercises and follow up with ortho as planned. Related to Osteoarthritis of left hip, unspecified osteoarthritis type Treated by endocrino logy - Dr. Bustamante. 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 s/p external beam radiation therapy. Follow up with neurosurgery, radiation oncology and endocrinology as planned. 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 Continue to follow up with endocrinology, radiation oncology, ENT and neurosurgery as planned. Related to Malignant neoplasm of thyroid gland Dietary management e ducation, guidance, and counseling Related to Body mass index (BMI) 27.0-27.9, adult Medication management seasonal flu vaccine [facility] today[facility].Counseled patient to schedule bone density scan.Colonoscopy up to date in 2017 - no polyps per patient.Counseled patient to get second Shingrix vaccine at her pharmacy.Follow up in 3 months. Related to Encounter for immunization check A1c today. Related to Enco janer for screening for diabetes mellitus counseled patient on diet and exercise. Related to Body mass index [BMI] 25.0-25.9, adult chronic. She follows up with orthopedics and pain management. Continue working on home exercises and follow up with ortho as planned. Related to Osteoarthritis of left hip, unspecified osteoarthritis type stable with oxybutynin. Check UA . Related to Overactive bladder controlled with pantoprazole. Re lated to Gastroesophageal [...] (BMI) 25.0-25.9, adult Assessments Type Assessment Date No Information Patient Care Teams Name Effective Dates (start - stop) Status Members No Information
--- OUTSIDE RECORDS SUMMARY | 2024-07-26 08:54 | XMS_ITS | Encounter Summary ---
Author Organization [facility] Address [address] [place] [address] Care Team Providers Care Route Delivery Driver Name Role Phone Unavailable Primary Care Provider Unavailabl e Encounter Details Date Type Department Care Team (Late st Contact Info) Description 06/26/2020 3:[address] STENOGRAPHER Rapid Evaluation [facility] Community Testing [facility] [address] [place] [address] Social History Tobacco Use Types Packs/Day Years Used Date Smoking Tobacco: Never Assessed Comments Unknown Sex and Gender Information Value Date Recorded Sex Assigned at Not on file Legal Sex Female 2:[address] STENOGRAPHER Gender Identity Not on file Sexual Orientation Not on file documented as of this encounter Plan of Treatment Not on file documented as of this encounter Visit Diagnoses Not on filedocumented in this encounter
--- OUTSIDE RECORDS SUMMARY | 2024-07-26 08:54 | XMS_ITS | Encounter Summary ---
Author Organization [facility] Address [address] [place] [address] Care Team Providers Care Barrel Inspector Tight Name Role Phone Unavailable Primary Care Provider Unavailabl e Encounter Details Date Type Department Care Team (Late st Contact Info) Description 06/26/2020 Lab Requisition [facility] Community Testing [facility] [address] [place] [address] [place], [place] [address] [place] [address] Social History Tobacco Use Types Packs/Day Years Used Date Smoking Tobacco: Never Assessed Comments Unknown Sex and Gender Information Value Date Recorded Sex Assigned at Not on file Legal Sex Female 2:37 PM LEHR OPERATOR Gender Identity Not on file Sexual Orientation Not on file documented as of this encounter Plan of Treatment Not on file documented as of this encounter Procedures Procedure Name Priority Date/Time Associated Diagnosis Comments SARS-COV-2 PCR [facility] ONLY Routine 06/26/2020 2:47 PM LEHR OPERATOR documented in this encounter Visit Diagnoses Not on filedocumented in this encounter
--- OUTSIDE RECORDS SUMMARY | 2024-07-26 08:54 | XMS_ITS | Encounter Summary ---
Author Organization [facility] Address [address] [place] [address] Care Team Providers Care Head Stock Operator Name Role Phone Unavailable Primary Care Provider Unavailabl e Reason for Visit * Reason Comments Establish Care hospital fu Encounter Details Date Type Department Care Team (Late st Contact Info) Description 01/10/2021 10:30 AM CDT Office Visit [facility] Oncology and Hematology - Abdirashid [address] [facility] [address] [place] [address] Luigi Jane MD [address] [facility] [address] [place] [address] Thyroid cancer (CMS/HCC) (Primary Dx) Social History Tobacco Use Types [...] : 1960 DIAGNOSIS Poorly differentiated thyroid carcinoma [id number] stage IVb disease multifocal disease with metastatic [...] for this patient. Poorly differentiated thyroid carcinoma [id number] stage IVb disease multifocal disease with metastatic [...] CBC WITH DIFFERENTIAL Lab Stat Thyroid cancer (CMS/HCC) Expected: 01/10/2021, Expires: 01/10/2022 documented as of this encounter Visit Diagnoses Diagnosis Thyroid cancer (CMS/HCC)- Primary Malignant neoplasm of thyroid gland documented in this encounter
--- OUTSIDE RECORDS SUMMARY | 2024-07-26 08:54 | XMS_ITS | Encounter Summary ---
Author Organization [facility] Address [address] [place] [address] Care Team Providers Care Switch Inspector Name Role Phone Unavailable Primary Care Provider Unavailabl e Encounter Details Date Type Department Care Team (Late st Contact Info) Description 01/14/2021 Orders Only [facility] Oncology and Hematology - Abdirashid [address] [facility] [address] [place] [address] Luigi Jane MD [address] [facility] [address] [place] [address] Thyroid cancer (CMS/HCC) Social History Tobacco Use Types Packs/Day [...]
== END 2024-07-22 16:00 | disposition other institution (70) | DRG 871 ==
LOC: ANHED 18:20 → ANH3MEDSUR 19:38 → ANH3MED 20:15 → ANHICU 07-28 09:25
PROVIDERS: Internal Medicine Gastroenterology; Nurse Practitioner Adult Health; Nurse Practitioner Gerontology; Physician Assistant; Admitting Provider Internal Medicine; Emergency Provider Emergency Medicine; Visit Provider Nurse Practitioner Acute Care
PROC: 0DJ08ZZ Inspection of Upper Intestinal Tract, Via Natural or Artificial Opening Endoscopic (ICD-10-PCS; principal; 2024-07-18 10:30)
PROC: 0DH63UZ Insertion of Feeding Device into Stomach, Percutaneous Approach (ICD-10-PCS; CPT 43246; principal; 2024-07-20 12:30)
DX: A40.8 Other streptococcal sepsis (principal); E43 Unspecified severe protein-calorie malnutrition; J96.91 Respiratory failure, unspecified with hypoxia; N39.0 Urinary tract infection, site not specified; J90 Pleural effusion, not elsewhere classified; R65.20 Severe sepsis without septic shock; R13.19 Other dysphagia; C73 Malignant neoplasm of thyroid gland; T45.1X5A Adverse effect of antineoplastic and immunosuppressive drugs, initial encounter; J04.0 Acute laryngitis; E78.5 Hyperlipidemia, unspecified; E86.0 Dehydration; F41.9 Anxiety disorder, unspecified; F17.210 Nicotine dependence, cigarettes, uncomplicated; K29.70 Gastritis, unspecified, without bleeding; K21.9 Gastro-esophageal reflux disease without esophagitis; K80.20 Calculus of gallbladder without cholecystitis without obstruction; M19.90 Unspecified osteoarthritis, unspecified site; Z90.89 Acquired absence of other organs; Z92.3 Personal history of irradiation; Z68.20 Body mass index [BMI] 20.0-20.9, adult; Z20.822 Contact with and (suspected) exposure to COVID-19
CPT/HCPCS: 31500; 36415; 36600; 43246; 71045; 71275; 74177; 80048; 80053; 81001; 82803; 82805; 82948; 83605; 83735; 84100; 84134; 84439; 84443; 85018; 85025; 85027; 85610; 85730; 87040; 87086; 87181; 87637; 87651; 88305; 92611; 93005; 96361; 96365; 96375; 96376; 99285; A9270; G0378; J0650; J0690; J0692; J0696; J1644; J1650; J1836; J1885; J2003; J2250; J2270; J2470; J2704; J2919; J3010; J3360; J3370; J3480; J7030; J7120; J7512; Q9967